=== PATIENT | female | born 1960 | race Caucasian/White ===

== ENCOUNTER 2021-04-30 09:09 | Inpatient (IN) | payer OTHER ==
[2021-04-30] MEDS ORDERED: ACETAMINOPHEN 500 MG TAB ONE (09:43)
[2021-04-30] MEDS ORDERED: NA CHLORIDE 0.9% 1,000 ML ONE ×3 (09:43→23:45)
[2021-04-30 09:55] LABS: Protime INR 1.23
--- NOTE | 2021-04-30 09:56 | RAD REPORT ---
EXAM DESCRIPTION: RAD - Chest Single View - 04/30/2021 9:35 am CLINICAL HISTORY: SOB COMPARISON: Portable March 2014, CT chest February 2021 TECHNIQUE: AP portable chest image was obtained 04/30/2021 9:35 am . FINDINGS: Baseline chronic interstitial lung pattern is present. Stranding is more prominent at each lung base, left greater than right, exaggerated due to under penetrated portable film technique, sha llow inspiration and overlying soft tissues. No definitive change from the prior examination. Lung pa renchymal calcifications are present and stable. Trach tube is in place. Trachea is midline. Patient rotation limits assessment of the neck soft tissu es. Heart and vasculature are normal. No measurable pleural effusion and no pneumothorax. No acute bony abnormality seen. No acute aortic findings suspected. IMPRESSION: No acute cardiopulmonary process. Bibasilar lung parenchymal opacification most likely atelectasis rather than infiltrate. Pattern is s imilar to 2013. Trach tube has been placed since the prior examination.
[2021-04-30 10:00] LABS: ALT/SGPT 54 U/L (12-78); AST/SGOT 71 U/L (15-37); Albumin 3.3 g/dL (3.4-5.0); Alkaline Phosphatase 167 U/L (45-117); BUN Blood Urea Nitrogen 16 mg/dL (7-18); Bicarbonate 34 mmol/L (21-32); Bilirubin Direct 0.2 mg/dL (0-0.2); Bilirubin Total 0.6 mg/dL (0.2-1.0); Glucose Level 211 mg/dL (74-106); NT PRO-BNP 809 pg/mL (<125); Protein, Total 7.9 g/dL (6.4-8.2); Sodium Level 135 mmol/L (136-145); Troponin (Emerg Dept Use Only) < 0.02 ng/mL (0.0-0.045)
[2021-04-30] MEDS ORDERED: NA CHLORIDE 0.9% 500 ML ONE (10:01)
[2021-04-30 10:13] LABS: Absolute Lymphocytes (CBC) 0.2 K/uL (0.7-4.9); Basophils % 0.3 % (0-1.3); Hematocrit 29.9 % (36.0-45.0); Lymphocytes % 2.3 % (15.3-44.8); MPV 7.4 fL (7.6-11.3)
[2021-04-30 10:30] LABS: CKMB Creatine Kinase MB 1.8 ng/mL (1.0-3.6)
[2021-04-30 10:53] LABS: Anisocytosis 1+; Blood Morphology Comment NOTED (NOT SEEN); Platelet Estimate ADEQ; Polychromasia SLIGHT; White Blood Cell Scan OK (OK)
[2021-04-30] MEDS ORDERED: CEFTRIAXONE 1000 MG/VIAL ONE (13:30)
[2021-04-30] MEDS ORDERED: NA CHLORIDE 0.9% 50 ML ONE (13:32)
[2021-04-30] MEDS ORDERED: HYDROCODONE/APAP 10/325 TAB ONE (13:39)
[2021-04-30 15:01] LABS: Urine Blood Negative (Negative); Urine Glucose Negative (Negative); Urine Protein 1+ (Negative); Urine Specific Gravity 1.025 (1.005-1.030); Urine pH 5.5 (5.0-7.0)
--- NOTE | 2021-04-30 15:21 | RAD REPORT ---
EXAM DESCRIPTION: CT - Chest Abdomen Pelvis W Cont - 04/30/2021 3:02 pm CLINICAL HISTORY: Chest and abdomen pain. back pain, fever COMPARISON: Follow Up Breast Axilla Comp dated 12/20/2020; 3D DIAG FERNANDA BILAT W/CAD dated 12/20/2020; C hest Single View dated 04/30/2021 TECHNIQUE: Approximately 100 mL nonionic IV contrast was administered to the patient. All CT scans are performed using dose optimization technique as appropriate and may include automated exposure control or mA/KV adjustment according to patient size. FINDINGS: Mild atelectasis and scarring is present in both lung bases. Calcified granuloma is noted the left upper lobe. Tracheostomy tube is in place with tip above the susanna.No pleural or pericardia l effusion.Mildly prominent 9 mm lymph node is seen prevascular space. The liver appears enlarged with a mildly nodular contour suggesting hepatomegaly and mild cirrhosis. Cholecystectomy. The spleen, pancreas, adrenal glands are within normal limits. Both kidneys show no hydronephrosis or evidence of stone or mass. No bowel obstruction, free air, free fluid or abscess. The appendix is not identified as a discrete s tructure, however, no secondary findings of appendicitis are identified. Small fat containing umbili michel hernia. No pathologic lymphadenopathy in the abdomen or pelvis. Mild lumbar degenerative changes are present. IMPRESSION: Hepatomegaly is noted with mild liver cirrhosis pattern. Small fat containing umbilical hernia. Lumbar spondylosis.
[2021-04-30] MEDS ORDERED: MORPHINE 4 MG/ML SYR ONE (17:15)
[2021-04-30] MEDS ORDERED: ONDANSETRON 4 MG/2 ML VIAL ONE (17:16)
--- NOTE | 2021-04-30 17:54 | RAD REPORT ---
EXAM DESCRIPTION: CT - Head Brain Wo Cont - 04/30/2021 5:45 pm CLINICAL HISTORY: headache, fever COMPARISON: Chest Abdomen Pelvis W Cont dated 04/30/2021 TECHNIQUE: All CT scans are performed using dose optimization technique as appropriate and may inclu de automated exposure control or mA/KV adjustment according to patient size. FINDINGS: No intracranial hemorrhage, hydrocephalus or extra-axial fluid collection.Mild brain atrop hy is noted.No areas of brain edema or evidence of midline shift. The paranasal sinuses and mastoids are clear. The calvarium is intact. IMPRESSION: No acute intracranial abnormality.
[2021-04-30] MEDS ORDERED: ACETAMINOPHEN 325 MG TABLET ONE (18:27)
[2021-04-30] MEDS ORDERED: IBUPROFEN 400 MG TAB ONE (18:28)
[2021-04-30 19:23] LABS: Urine Bacteria >50 /HPF (<20); Urine RBC <5 /HPF (NONE SEEN)
[2021-04-30 19:24] LABS: Urine Amorphous Sediment TRACE /HPF (NONE SEEN)
--- NOTE | 2021-04-30 19:28 | ER ---
Nurse's Notes [facility] Name: Janie Erickson Age: 60 yrs Sex: Female : 1960 Arrival Date: 04/30/2021 Time: 09:12 Bed 2 Private MD: Diagnosis: UTI/ Urinary tract infection, site not specified;Fever, unspecified;Sepsis, unspecified organism Presentation: 04/30 09:22 Chief complaint: Spouse and/or significant other states: "Last night she started tw5 feeling bad,so' I gave her a breathing treatment and antibiotics. She started feeling better, but then she got worse again. Coronavirus screen: Vaccine status: Patient reports being unvaccinated. Coronavirus screen: states that everyone in the house got COVID expect Janie. Ebola Screen: No symptoms or risks identified at this time. Initial Sepsis Screen: Does the patient meet any 2 criteria? Temp <36.0*C (96.8*F)) or > 38.3*C (100.9*F). HR > 90 bpm. Yes Does the patient have a suspected source of infection? No. Patient's initial sepsis screen is negative. Risk Assessment: Do you want to hurt yourself or someone else? Patient reports no desire to harm self or others. Onset of symptoms was April 29, 2021. 09:22 Method Of Arrival: EMS: [facility] tw5 09:22 Acuity: PAULINA 2 tw5 Triage Assessment: 09:26 General: Appears obese, unkempt, Behavior is calm, drowsy. Pain: Pain currently is 8 tw5 out of 10 on a pain scale. Respiratory: Reports shortness of breath labored breathing Ventilator assessment: ET Tube: Onset: The symptoms/episode began/occurred yesterday, the patient has moderate shortness of breath. Historical: - Allergies: : Sulfa (Sulfonamide Antibiotics); tw5 - PMHx: : Chronic obstructive lung disease; Congestive heart failure; Diabetes mellitus; tw5 - Immunization history:: Client reports having NOT received the Covid vaccine. Flu vaccine is not up to date. - Social history:: Smoking status: Patient reports the use of cigarette tobacco products, smokes one-half pack cigarettes per day. Screenin:19 Abuse screen: Denies threats or abuse. Denies injuries from another. Nutritional tw5 screening: No deficits noted. Tuberculosis screening: No symptoms or risk factors identified. Fall Risk None identified. Secondary diagnosis (15 points) Assessment: 11:00 General: Behavior is calm, cooperative, appropriate for age. tw5 11:00 Cardiovascular: Rhythm is regular. Respiratory: Reports shortness of breath since tw5 yesterday Airway via trache Trachea midline Respiratory effort is labored, Breath sounds are coarse. 11:00 Pain: Pain currently is 8 out of 10 on a pain scale. tw5 13:19 Pain: Pain currently is 6 out of 10 on a pain scale. tw5 13:19 Reassessment: Patient states feeling better. Patient states symptoms have improved. tw5 14:48 General: Appears in no apparent distress. Pain: Pain currently is 3 out of 10 on a pain tw5 scale. 16:27 General: Appears uncomfortable, Behavior is anxious. Pain: Complains of pain in face tw5 and back Pain currently is 10 out of 10 on a pain scale. 19:00 Reassessment: Patient appears in no apparent distress at this time. Patient and/or jb4 family updated on plan of care and expected duration. Pain level reassessed. Patient is alert, oriented x 3, equal unlabored respirations, skin warm/dry/pink. 20:00 Reassessment: Patient appears in no apparent distress at this time. Patient and/or jb4 family updated on plan of care and expected duration. Pain level reassessed. Patient is alert, oriented x 3, equal unlabored respirations, skin warm/dry/pink. 21:00 Reassessment: Patient appears in no apparent distress at this time. Patient and/or jb4 family updated on plan of care and expected duration. Pain level reassessed. Patient is alert, oriented x 3, equal unlabored respirations, skin warm/dry/pink. 22:30 Reassessment: Pt admitted to ER hold. Respirations remain even and unlabored. Lungs CTA jb4 EDWARD. Vent remains connected to pt's tracheostomy without any signs of complication. Pt resting in bed with ease, respirations are even and unlabored with no s/s of pain or distress noted. Vital Signs: 09:22 BP 116 / 62; Pulse 117; Temp 103(O); Pulse Ox 100% on ETT vent; tr6 09:22 BP 116 / 62; Pulse 118; Resp 17 S; Temp 103(O); Pulse Ox 100% on ETT vent; Weight 91.17 tw5 kg (R); Pain 8/10; 10:00 BP 117 / 67; Pulse 108; Resp 19; Pulse Ox 100% on ETT vent; tr6 10:53 Temp 99.6(O); tr6 11:15 BP 105 / 51; Pulse 98; Resp 19; Pulse Ox 98% on ETT vent; tr6 13:19 BP 105 / 56; Pulse 89; Resp 14; Pulse Ox 98% on 8% FiO2 ETT vent; Pain 6/10; tw5 15:24 BP 109 / 61; Pulse 96; Resp 16; Pulse Ox 100% ; tw5 16:27 BP 122 / 75; Pulse 105; Resp 14; Temp 99.9(O); Pulse Ox 100% ; Pain 10/10; tw5 17:00 BP 136 / 73; Pulse 110; Resp 14; Pulse Ox 100% on R/A; Pain 10/10; tw5 18:00 Temp 103.2(O); Pulse Ox 99% ; tr6 18:00 BP 139 / 80; Pulse 131; Resp 19; Pulse Ox 100% on ETT vent; tr6 18:15 BP 155 / 67; Pulse 126; Resp 19; Pulse Ox 100% on ETT vent; tr6 18:58 Temp 102.5(O); tr6 19:45 BP 118 / 48; Pulse 111; Resp 18; Pulse Ox 100% ; jb4 21:00 BP 100 / 60; Pulse 102; Resp 16; Temp 100.0(O); Pulse Ox 98% ; jb4 22:00 BP 96 / 60; Pulse 93; Resp 15; Pulse Ox 99% ; jb4 23:18 Temp 100.0(O); jb5 22:00 Pt remains on home ventilator. jb4 Vitals: 18:00 Cardiac Rhythm Assessment Sinus tach. tr6 ED Course: 09:12 Patient arrived in ED. tw5 09:16 Bridger Lange PA is PHCP. jm 09:16 Milton Claros MD is Attending Physician. jmm 09:19 Nicole Goyal is Primary Nurse. tw5 09:25 Initial lab(s) drawn, by me, sent to lab. First set of blood cultures drawn by me, em1 COVID swab sent to lab. 09:26 Triage completed. tw5 09:26 Arm band placed on. EKG completed in triage. Results shown to MD. tw5 09:30 No apparent distress. Resting quietly. Appears to be sleeping. tw5 09:30 Patient has correct armband on for positive identification. Bed in low position. Call tw5 light in reach. Side rails up X2. Adult w/ patient. 09:30 regulatory and compliance technician on. Pulse ox on. NIBP on. Door closed. Noise minimized. Lights dimmed. tw5 Moved to private room. Verbal reassurance given. 09:30 No provider procedures requiring assistance completed. tw5 09:34 Basic Metabolic Panel Sent. tr6 09:35 XRAY Chest (1 view) In Process Unspecified. EDMS 10:49 Second set of blood cultures drawn by me. em1 12:58 Amylase, Serum Sent. tw5 12:58 Basic Metabolic Panel Sent. tw5 13:13 Inserted saline lock: 20 gauge in left antecubital area, using aseptic technique. em1 14:53 Urine collected: straight cath specimen, clear. tw5 15:01 CT Chest, Abdomen, Pelvis - W/Contrast In Process Unspecified. EDMS 16:27 Notified Nurse Practitioner and/or Physician Law Firm Receptionist of The patient is requesting tw5 pain medication. 17:45 CT Head Brain wo Cont In Process Unspecified. EDMS 19:10 PHCP role handed off by Bridger Lange PA jr8 19:10 Perez Forrest PA is PHCP. jr8 19:12 Bridges cath inserted, using sterile technique, 18 Fr., by me, balloon inflated, to jb5 gravity drainage, returned cloudy urine. Patient tolerated well. 19:26 Reina Aopnte MD is Hospitalizing Provider. jr8 22:01 Patient transferred to hospital bed from ER bed without incident. . jb5 22:30 Patient admitted, IV remains in place. jb4 05/01 05:03 Patient requested to be pulled up in bed. Patient was pulled up in bed and head jb5 elevated. 06:17 PHCP role handed off by Perez Forrest PA jmm 06:17 Bridger Lange PA is PHCP. jmm 07:17 Primary Nurse role handed off by Nicole Goyal 07:17 Chang Lucio, RN is Primary Nurse. bp Administered Medications: 04/30 09:22 Drug: Tylenol 1000 mg Route: PO; tw5 13:29 Follow up: Response: No adverse reaction; Temperature is decreased tw5 09:42 Drug: NS 0.9% (30 ml/kg) 30 ml/kg {Note: 2500 hung 250 mg given by EMS.} Route: IV; tw5 Rate: bolus; Site: left hand; 13:29 Follow up: Response: No adverse reaction; IV Status: Completed infusion; IV Intake: tw5 2500ml 13:28 Drug: Seward (HYDROcodone-acetaminophen) 10 mg-325 mg 1 tabs Route: PO; tw5 15:08 Follow up: Response: No adverse reaction; Pain is decreased; RASS: Alert and Calm (0) tw5 13:28 Drug: Rocephin (cefTRIAXone) 2 grams Route: IV; Rate: calculated rate; Site: left tw5 forearm; 15:09 Follow up: IV Status: Completed infusion tw5 16:55 Drug: morphine 4 mg Route: IVP; Site: left forearm; tw5 17:56 Follow up: Response: No adverse reaction; Pain is unchanged, physician notified tr6 16:57 Drug: Zofran (Ondansetron) 4 mg Route: IVP; Site: left forearm; tw5 17:56 Follow up: Response: No adverse reaction; Pain is unchanged, physician notified tr6 18:15 Drug: Ibuprofen 400 mg Route: PO; tr6 21:46 Follow up: Response: No adverse reaction; Temperature is decreased jb4 18:16 Drug: Tylenol 650 mg Route: PO; tr6 21:46 Follow up: Response: No adverse reaction; Temperature is decreased jb4 Intake: 13:29 IV: 2500ml; Total: 2500ml. tw5 Outcome: 19:27 Decision to Hospitalize by Provider. jr8 22:30 Admitted to ER Hold. Please see [facility] for further documentation. jb4 22:30 Condition: stable 22:30 Discharge instructions given to patient, Instructed on the need for admit, Demonstrated understanding of instructions. 05/01 13:25 Patient left the ED. em1 Signatures: Dispatcher [employer] EDMS Bridger Lange PA PA jmm Martinez, Eric em1 Perez Forrest PA PA jrOtoniel Avendano, RN RN jb4 Jenny Batres jb5 Chang Lucio RN RN bp Nicole Kowalski RN RN tr6 Nicole Goyal 5 Corrections: (The following items were deleted from the chart) 04/30 18:29 18:16 BP 139 / 80; Pulse 131bpm; Resp 19bpm; Pulse Ox 100% ET / Ventilator; tr6 tr6 21:29 21:00 BP 100 / 60; Pulse 102bpm; Resp 16bpm; Pulse Ox 98%; jb4 jb4 05/01 01:40 04/30 21:00 Reassessment: Patient appears in no apparent distress at this time. Patient jb4 and/or family updated on plan of care and expected duration. Pain level reassessed. Patient is alert, oriented x 3, equal unlabored respirations, skin warm/dry/pink. jb4
--- NOTE | 2021-04-30 19:28 | EDPHYS ---
Physician Documentation [facility] Name: Janie Erickson Age: 60 yrs Sex: Female : 1960 Arrival Date: 04/30/2021 Time: 09:12 Bed 2 Private MD: ED Physician Milton Claros HPI: 04/30 09:15 This 60 yrs old Female presents to ER via EMS with complaints of fever. jmm 09:15 The patient reports fever, not measured (subjective). Onset: The symptoms/episode jmm began/occurred last night. Modifying factors: there are no obvious modifying factors. Associated signs and symptoms: Pertinent positives: backache, chills, Pertinent negatives: sore throat. 60-year-old female with a history of COPD, CHF diabetes mellitus the presents emerge department with complaints of fever and chills beginning last night. states that he administered some nebulizer therapies. Patient denies any sore throat, pain at the tracheostomy site. Patient does state that she has back pain across her entire spine. Denies chest pain or belly pain. Historical: - Allergies: 09:26 Sulfa (Sulfonamide Antibiotics); tw5 - PMHx: 09:26 Chronic obstructive lung disease; Congestive heart failure; Diabetes mellitus; tw5 - Immunization history:: Client reports having NOT received the Covid vaccine. Flu vaccine is not up to date. - Social history:: Smoking status: Patient reports the use of cigarette tobacco products, smokes one-half pack cigarettes per day. ROS: 09:15 Constitutional: Positive for fever. jmm 09:15 Back: Positive for pain with movement. 09:15 All other systems are negative. Exam: 09:15 Constitutional: This is a well developed, well nourished patient who is awake, alert, jmm and in no acute distress. Head/Face: atraumatic. Eyes: EOMI, no conjunctival erythema appreciated ENT: Moist Mucus Membranes Neck: No tracheostomy drainage appreciated, no surrounding erythema Chest/axilla: Normal chest wall appearance and motion. Cardiovascular: Regular rate and rhythm. No edema appreciated Respiratory: Normal respirations, no respiratory distress appreciated Abdomen/GI: Non distended, soft Back: Normal ROM Skin: General appearance color normal MS/ Extremity: Moves all extremities, no obvious deformities appreciated, no edema noted to the lower extremities 09:15 Neuro: Orientation: is normal, Mentation: is normal, Memory: is normal. 09:15 Psych: Behavior/mood is pleasant, cooperative. Vital Signs: 09:22 BP 116 / 62; Pulse 117; Temp 103(O); Pulse Ox 100% on ETT vent; tr6 09:22 BP 116 / 62; Pulse 118; Resp 17 S; Temp 103(O); Pulse Ox 100% on ETT vent; Weight 91.17 tw5 kg (R); Pain 8/10; 10:00 BP 117 / 67; Pulse 108; Resp 19; Pulse Ox 100% on ETT vent; tr6 10:53 Temp 99.6(O); tr6 11:15 BP 105 / 51; Pulse 98; Resp 19; Pulse Ox 98% on ETT vent; tr6 13:19 BP 105 / 56; Pulse 89; Resp 14; Pulse Ox 98% on 8% FiO2 ETT vent; Pain 6/10; tw5 15:24 BP 109 / 61; Pulse 96; Resp 16; Pulse Ox 100% ; tw5 16:27 BP 122 / 75; Pulse 105; Resp 14; Temp 99.9(O); Pulse Ox 100% ; Pain 10/10; tw5 17:00 BP 136 / 73; Pulse 110; Resp 14; Pulse Ox 100% on R/A; Pain 10/10; tw5 18:00 Temp 103.2(O); Pulse Ox 99% ; tr6 18:00 BP 139 / 80; Pulse 131; Resp 19; Pulse Ox 100% on ETT vent; tr6 18:15 BP 155 / 67; Pulse 126; Resp 19; Pulse Ox 100% on ETT vent; tr6 18:58 Temp 102.5(O); tr6 19:45 BP 118 / 48; Pulse 111; Resp 18; Pulse Ox 100% ; jb4 21:00 BP 100 / 60; Pulse 102; Resp 16; Temp 100.0(O); Pulse Ox 98% ; jb4 22:00 BP 96 / 60; Pulse 93; Resp 15; Pulse Ox 99% ; jb4 23:18 Temp 100.0(O); jb5 22:00 Pt remains on home ventilator. jb4 MDM: 09:16 Patient medically screened. tonya 17:52 Data reviewed: vital signs, nurses notes. Transition of care: After a detail discussion tonya of the patient's case, care is transferred to [facility]. ED course: CT chest abdomen pelvis is negative for any acute finding. Patient stated that she did have headache, although worsening of her life. Morphine was administered. I discussed concerns for meningitis along with the need for further evaluation with spinal tap. They accepted.. 19:25 Data reviewed: lab test result(s), radiologic studies, CT scan, plain films. Data jr8 interpreted: Pulse oximetry: on room air is 100 %. Interpretation: normal. Counseling: I had a detailed discussion with the patient and/or guardian regarding: the historical points, exam findings, and any diagnostic results supporting the discharge/admit diagnosis, lab results, radiology results, the need for further work-up and treatment in the hospital. 04/30 09:16 Order name: Amylase, Serum tw5 04/30 09:16 Order name: Basic Metabolic Panel tw5 04/30 09:16 Order name: Blood Culture Adult (2) tw5 04/30 09:16 Order name: CPK; Complete Time: 10:34 tw5 04/30 09:16 Order name: Ckmb; Complete Time: 10:34 tw5 04/30 09:16 Order name: Lactate; Complete Time: 09:59 tw5 04/30 09:16 Order name: Lipase; Complete Time: 10:34 tw5 04/30 09:16 Order name: Procalcitonin; Complete Time: 10:34 tw5 04/30 09:16 Order name: Protime (+inr); Complete Time: 10:22 tw5 04/30 09:16 Order name: Ptt, Activated; Complete Time: 10:22 tw5 04/30 09:16 Order name: Urine Microscopic Only; Complete Time: 19:24 tw5 04/30 09:17 Order name: Amylase; Complete Time: 10:34 EDMS 04/30 09:18 Order name: Basic Metabolic Panel [facility] 04/30 09:18 Order name: CBC with Diff; Complete Time: 10:53 [facility] 04/30 09:18 Order name: LFT's; Complete Time: 10:22 [facility] 04/30 09:18 Order name: Magnesium; Complete Time: 10:22 [facility] 04/30 09:18 Order name: NT PRO-BNP; Complete Time: 10:22 [facility] 04/30 09:18 Order name: Troponin (emerg Dept Use Only); Complete Time: 10:22 m 04/30 09:19 Order name: Basic Metabolic Panel; Complete Time: 10:22 EDMS 04/30 09:27 Order name: Glucose, Ancillary Testing; Complete Time: 09:36 EDMS 04/30 09:47 Order name: SARS-COV-2 RT PCR; Complete Time: 10:45 EDMS 04/30 10:17 Order name: CBC Smear Scan; Complete Time: 10:53 EDMS 04/30 14:49 Order name: Urine Culture tw5 04/30 15:00 Order name: Urine Dipstick-Ancillary; Complete Time: 15:07 EDMS 04/30 09:18 Order name: XRAY Chest (1 view); Complete Time: 09:59 m 04/30 14:44 Order name: CT Chest, Abdomen, Pelvis - W/Contrast; Complete Time: 15:27 [facility] 04/30 15:42 Order name: Procalcitonin; Complete Time: 18:25 m 04/30 16:47 Order name: CT Head Brain wo Cont; Complete Time: 18:25 m 04/30 17:48 Order name: Csf Culture [facility] 04/30 17:48 Order name: Fluid Cell Count,Body [facility] 04/30 17:48 Order name: Spinal Fluid Profile [facility] 04/30 23:28 Order name: Glucose, Ancillary Testing; Complete Time: 23:42 EDMS 05/01 00:18 Order name: Lactate; Complete Time: 00:19 EDMS 05/01 06:10 Order name: CBC with Automated Diff; Complete Time: 08:18 EDMS 05/01 06:31 Order name: Comprehensive Metabolic Panel; Complete Time: 07:08 EDMS 05/01 06:31 Order name: Phosphorus; Complete Time: 07:08 EDMS 05/01 06:31 Order name: Lipid Profile; Complete Time: 07:08 EDMS 05/01 06:31 Order name: T4 Free; Complete Time: 07:08 EDMS 05/01 06:31 Order name: Magnesium; Complete Time: 07:08 EDMS 05/01 06:31 Order name: Thyroid Stimulating Hormone; Complete Time: 07:08 EDMS 05/01 06:31 Order name: Transferrin Sat/Iron Binding; Complete Time: 07:08 EDMS 05/01 06:31 Order name: Ferritin; Complete Time: 07:08 EDMS 05/01 06:31 Order name: Folic Acid, (Folate); Complete Time: 07:08 EDMS 05/01 06:31 Order name: Vitamin B12 Level; Complete Time: 07:08 EDMS 05/01 07:36 Order name: Glucose, Ancillary Testing; Complete Time: 08:17 EDMS 05/01 08:17 Order name: CBC Smear Scan; Complete Time: 08:18 EDMS 04/30 09:16 Order name: Accucheck; Complete Time: 09:42 tw5 04/30 09:16 Order name: Cardiac monitoring; Complete Time: 09:42 tw5 04/30 09:16 Order name: EKG - Nurse/Tech; Complete Time: 09:42 tw5 04/30 09:16 Order name: IV Saline Lock - Large Bore; Complete Time: 09:42 tw5 04/30 09:16 Order name: Labs collected and sent; Complete Time: 09:42 tw5 04/30 09:16 Order name: O2 Per Protocol; Complete Time: 09:42 tw5 04/30 09:16 Order name: O2 Sat Monitoring; Complete Time: 09:42 tw5 04/30 09:16 Order name: Urine Dipstick-Ancillary (obtain specimen); Complete Time: 15:09 tw5 04/30 09:18 Order name: EKG; Complete Time: 09:19 jmm 04/30 09:18 Order name: Cardiac monitoring; Complete Time: 09:30 jmm 04/30 09:18 Order name: EKG - Nurse/Tech; Complete Time: 09:30 jmm 04/30 09:18 Order name: IV Saline Lock; Complete Time: 09:30 jmm 04/30 09:18 Order name: Labs collected and sent; Complete Time: 09:30 jmm 04/30 09:18 Order name: O2 Per Protocol; Complete Time: 09:30 jmm 04/30 09:18 Order name: O2 Sat Monitoring; Complete Time: 09:30 jmm 04/30 19:12 Order name: Bridges-Two way; Complete Time: 19:12 jb5 Administered Medications: 09:22 Drug: Tylenol 1000 mg Route: PO; tw5 13:29 Follow up: Response: No adverse reaction; Temperature is decreased tw5 09:42 Drug: NS 0.9% (30 ml/kg) 30 ml/kg {Note: 2500 hung 250 mg given by EMS.} Route: IV; tw5 Rate: bolus; Site: left hand; 13:29 Follow up: Response: No adverse reaction; IV Status: Completed infusion; IV Intake: tw5 2500ml 13:28 Drug: [place] (HYDROcodone-acetaminophen) 10 mg-325 mg 1 tabs Route: PO; tw5 15:08 Follow up: Response: No adverse reaction; Pain is decreased; RASS: Alert and Calm (0) tw5 13:28 Drug: Rocephin (cefTRIAXone) 2 grams Route: IV; Rate: calculated rate; Site: left tw5 forearm; 15:09 Follow up: IV Status: Completed infusion tw5 16:55 Drug: morphine 4 mg Route: IVP; Site: left forearm; tw5 17:56 Follow up: Response: No adverse reaction; Pain is unchanged, physician notified tr6 16:57 Drug: Zofran (Ondansetron) 4 mg Route: IVP; Site: left forearm; tw5 17:56 Follow up: Response: No adverse reaction; Pain is unchanged, physician notified tr6 18:15 Drug: Ibuprofen 400 mg Route: PO; tr6 21:46 Follow up: Response: No adverse reaction; Temperature is decreased jb4 18:16 Drug: Tylenol 650 mg Route: PO; tr6 21:46 Follow up: Response: No adverse reaction; Temperature is decreased jb4 Disposition Summary: 04/30/21 19:27 Hospitalization Ordered Hospitalization Status: Inpatient Admission jr8 Provider: Reina Aponte Condition: Fair jr8 Problem: new jr8 Symptoms: have improved jr8 Bed/Room Type: Standard jr8 Location: [facility] ER HOLD(05/01/21 03:14) bb Room Assignment: ERHOLD-(05/01/21 03:14) bb Diagnosis - UTI/ Urinary tract infection, site not specified jr8 - Fever, unspecified jr8 - Sepsis, unspecified organism jr8 Forms: - Medication Reconciliation Form jr8 - SBAR form jr8 Addendum: 05/05/2021 06:55 Co-signature as Attending Physician, Milton Claros MD I agree with the assessment and c hoffman plan of care. Signatures: Dispatcher [employer] EDMilton Klein MD MD cha Mickail, Joel, PA PA jmm Ballard, Brenda, RN RN bb Perez Forrest PA PA jr8 Jenny Batres jb5 Nicole Kowalski, OLIVE RN tr6 Nicole Goyal tw5 Otoniel Quintana RN jb4 Corrections: (The following items were deleted from the chart) 04/30 09:26 09:18 Chest Single View+RAD.RAD.BRZ ordered. EDMS EDMS 09:39 09:19 PROTIME (+INR)+COAG.LAB.BRZ ordered. EDMS EDMS 09:42 09:17 Basic Metabolic Panel ordered. EDMS EDMS 09:42 09:17 CBC+H.LAB.BRZ ordered. EDMS EDMS 09:42 09:17 HEPATIC FUNCTION+C.LAB.BRZ ordered. EDMS EDMS 09:42 09:17 TROPONIN (EMERG DEPT USE ONLY)+C.LAB.BRZ ordered. EDMS EDMS 09:47 09:19 CORONAVIRUS+MR.LAB.BRZ ordered. EDMS EDMS 16:52 15:43 LACTATE+C.LAB.BRZ ordered. EDMS EDMS 05/01 03:14 04/30 19:27 Telemetry/MedSurg (Inpatient) jr8 jamie 05/01 03:14 04/30 19:27 jrVania ayala
--- NOTE | 2021-04-30 21:36 | P.HP ---
Certification for Inpatient Patient admitted to: Inpatient With expected LOS: >2 Midnights Patient will require the following post-hospital care: None Practitioner: I am a practitioner with admitting privileges, knowledge of patient current condition, hospital course, and medical plan of care. Services: Services provided to patient in accordance with Admission requirements found in Title 42 Section 412.3 of the Code of Federal Regulations Patient History Date of Service: 04/30/21 Reason for admission: UTI, fever History of Present Illness: Ms. Erickson is a 60 yo F with a trach, COPD, CHF, DM who presents with one day of malaise, SOB, and fever, found to have a UTI. Yesterday, when her symptoms started her gave her breathing treatments and antibiotics but this morning she woke up with a fever. She denies pain at her trach site. H/H 10.1, Glu 211, AST 71k, alk phos 167, procal 24.88. Allergies Sulfa (Sulfonamide Antibiotics) Allergy (Verified 04/21/14 07:51) Itching/Hives/Rash Home Medications: predniSONE [Prednisone*] 40 mg PO [id number] #20 tab 04/21/14 - Past Medical/Surgical History Diabetic: Yes -: COPD -: CHF -: DM -: trach - Family History Family History: Reviewed- Non-Contributory - Social History Smoking Status: Unknown if ever smoked Alcohol use: No CD- Drugs: No Caffeine use: No Place of Residence: Home Review of Systems General: Fever, Chills, Sweats, Malaise Respiratory: Shortness of Breath Physical Examination - Physical Exam General: Alert, In no apparent distress HEENT: Atraumatic, PERRLA, Mucous membr. moist/pink, EOMI, Sclerae nonicteric Neck: Supple, 2+ carotid pulse no bruit, No LAD, Other (using ETT via trach at bedside ), Without JVD or thyroid abnormality Respiratory: Clear to auscultation bilaterally, Normal air movement Cardiovascular: Regular rate/rhythm, Normal S1 S2 Gastrointestinal: Normal bowel sounds, No tenderness Musculoskeletal: No tenderness Integumentary: No rashes Neurological: Normal strength at 5/5 x4 extr, Normal tone, Normal affect Lymphatics: No axilla or inguinal lymphadenopathy - Studies Laboratory Data (last 24 hrs) 04/30/21 09:25: PT Cancelled, INR Cancelled 04/30/21 09:25: WBC 9.00, Hgb 10.1 L, Hct 29.9 L, Plt Count 183 04/30/21 09:25: Sodium 135 L, Potassium 4.0, BUN 16, Creatinine 1.07, Glucose 211 H, Magnesium 2.0, Total Bilirubin 0.6, AST 71 H, ALT 54, Alkaline Phosphatase 167 H 04/30/21 09:25: PT 14.2 H, INR 1.23, APTT 34.8 04/30/21 09:25: Sodium Cancelled, Potassium Cancelled, BUN Cancelled, Creatinine Cancelled, Glucose Cancelled, Total Bilirubin Cancelled, AST Cancelled, ALT Cancelled, Alkaline Phosphatase Cancelled, Amylase 11 L, Lipase 21 L 04/30/21 09:16: WBC Cancelled, Hgb Cancelled, Hct Cancelled, Plt Count Cancelled Assessment and Plan - Problems (Diagnosis) (1) CHF (congestive heart failure) Current Visit: Yes Status: Chronic Qualifiers: Heart failure type: unspecified Heart failure chronicity: unspecified Qualified Code(s): I50.9 - Heart failure, unspecified (2) COPD (chronic obstructive pulmonary disease) Current Visit: Yes Status: Chronic Qualifiers: COPD type: unspecified COPD Qualified Code(s): J44.9 - Chronic obstructive pulmonary disease, unspecified (3) T2DM (type 2 diabetes mellitus) Current Visit: Yes Status: Chronic Qualifiers: Diabetes mellitus tank terminal gauger insulin use: unspecified tank terminal gauger insulin use status Diabetes mellitus complication status: without complication Qualified Code(s): E11.9 - Type 2 diabetes mellitus without complications (4) UTI (urinary tract infection) Current Visit: Yes Status: Acute Qualifiers: Urinary tract infection type: site unspecified Hematuria presence: without hematuria Qualified Code(s): N39.0 - Urinary tract infection, site not specified - Plan continue IV antibiotics alternate ibuprofen and tylenol for fever control pain management as needed breathing treatments as needed anemia workup pending sliding scale insulin and accuchecks RT consulted DVT ppx Discharge Plan: Home Plan to discharge in: 72 Hours - Advance Directives Does patient have a Living Will: No Does patient have a Durable POA for Healthcare: No - Code Status/Comfort Care Code Status Assessed: Yes (full code ) Critical Care: No Time Spent Managing Pts Care (In Minutes): 70
[2021-04-30] MEDS ORDERED: ALBUTEROL 2.5 MG/3 ML NEB SOL NEB PRN (22:39)
[2021-04-30] MEDS: INSULIN -REGULAR HUMAN 50 UNIT/0.5 ML ML SQ SCH (22:39)
[2021-04-30] MEDS ORDERED: MORPHINE 2 MG/ML SYR IV PRN (22:39)
[2021-04-30] MEDS ORDERED: IBUPROFEN 400 MG TAB PO PRN (22:39)
[2021-04-30] MEDS ORDERED: ACETAMINOPHEN 500 MG TAB PO PRN (22:39)
[2021-04-30] MEDS ORDERED: NA CHLORIDE 0.9% 1,000 ML IV SCH (22:39)
[2021-04-30] MEDS ORDERED: ONDANSETRON 4 MG/2 ML VIAL IV PRN (22:39)
[2021-04-30] MEDS ORDERED: IPRATROPIUM BROM 0.5MG/2.5ML NEB PRN (22:39)
[2021-04-30 22:47] VITALS: BMI 32.4
[2021-04-30] MEDS ORDERED: FAMOTIDINE 20 MG/2 ML VIAL IV ONE (23:42)
[2021-05-01] MEDS ORDERED: INSULIN -REGULAR HUMAN 50 UNIT/0.5 ML ML ONE (00:24)
[2021-05-01] MEDS ORDERED: FENTANYL CITR 100 MCG/2 ML IV ONE (02:23)
[2021-05-01] MEDS ORDERED: FENTANYL CITR 100 MCG/2 ML ONE (03:00)
[2021-05-01] MEDS ORDERED: CYCLOBENZAPRINE 10 MG TAB PO ONE (03:56)
[2021-05-01] MEDS ORDERED: ONDANSETRON 4 MG/2 ML VIAL ONE ×2 (04:25→08:15)
[2021-05-01] MEDS ORDERED: CYCLOBENZAPRINE 10 MG TAB ONE (04:25)
[2021-05-01] MEDS ORDERED: ALBUTEROL 2.5 MG/3 ML NEB SOL ONE (04:51)
[2021-05-01] MEDS ORDERED: IPRATROPIUM BROM 0.5MG/2.5ML ONE (04:52)
[2021-05-01 05:00] VITALS: O2SAT 100
[2021-05-01 06:03] LABS: Absolute Lymphocytes (CBC) 0.2 K/uL (0.7-4.9); Basophils % 0.2 % (0-1.3)
[2021-05-01 06:30] LABS: ALT/SGPT 78 U/L (12-78); AST/SGOT 99 U/L (15-37); Albumin 2.9 g/dL (3.4-5.0); Alkaline Phosphatase 171 U/L (45-117); BUN Blood Urea Nitrogen 17 mg/dL (7-18); Bicarbonate 36 mmol/L (21-32); Bilirubin Total 0.4 mg/dL (0.2-1.0); Ferritin 595.3 ng/mL (8-388); Folic Acid, (Folate) > 20.0 ng/mL (3.1-17.5); Glucose Level 142 mg/dL (74-106); HDL Cholesterol 27 mg/dL (40-60); LDL Cholesterol, Calculated 9 (<130); Magnesium 2.2 mg/dL (1.8-2.4); Phosphorus 2.7 mg/dL (2.5-4.9); Potassium 3.8 mmol/L (3.5-5.1); Protein, Total 7.2 g/dL (6.4-8.2); Sodium Level 138 mmol/L (136-145); Transferrin 156 mg/dL (200-360)
[2021-05-01] MEDS: INSULIN -REGULAR HUMAN 50 UNIT/0.5 ML ML SQ SCH ×2 (07:30→11:30)
[2021-05-01] MEDS ORDERED: MORPHINE 2 MG/ML SYR ONE (08:15)
[2021-05-01 08:17] LABS: Blood Morphology Comment NOT SEEN (NOT SEEN); Platelet Estimate DECR; White Blood Cell Scan OK (OK)
[2021-05-01] MEDS ORDERED: ENOXAPARIN 40 MG/0.4 ML SQ SCH (09:00)
[2021-05-01] MEDS ORDERED: INFLUENZA VACCINE (for 6+ mo) 0.5 ML DOSE IMVAC ONE ×2 (09:00→10:54)
[2021-05-01 10:47] VITALS: TEMP 98.5
[2021-05-01] MEDS ORDERED: ENOXAPARIN 40 MG/0.4 ML SQ ONE (10:53)
[2021-05-01] MEDS ORDERED: HYDROCODONE/APAP 10/325 TAB PO PRN (11:28)
[2021-05-01 11:31] VITALS: BP 119/69
--- NOTE | 2021-05-01 12:30 | P.DS ---
Admission Date: 04/30/21 Discharge Date: 05/01/21 Disposition: ROUTINE DISCHARGE Discharge Condition: FAIR Reason for Admission: UTI, fever - Problems (1) Chronic respiratory failure with hypoxia Status: Chronic (2) Tracheostomy status Status: Chronic (3) UTI (urinary tract infection) Status: Acute Qualifiers: Urinary tract infection type: site unspecified Hematuria presence: without hematuria Qualified Code(s): N39.0 - Urinary tract infection, site not specified (4) T2DM (type 2 diabetes mellitus) Status: Chronic Qualifiers: Diabetes mellitus assisted insulin use: unspecified assisted insulin use status Diabetes mellitus complication status: without complication Qualified Code(s): E11.9 - Type 2 diabetes mellitus without complications (5) Sepsis Status: Acute Brief History of Present Illness: 60 yo F with a trach, COPD, CHF, DM who presents with one day of malaise, SOB, and fever, found to have a UTI. Per report her gave her breathing treatment and antibiotics before she came to the emergency department. H/H 10.1, Glu 211, AST 71k, alk phos 167, procal 24.88. Chest x-ray showed no acute cardiopulmonary process. Patient was hospitalized for further management. Hospital Course: Patient admitted to the medical floor and started on IV antibiotics. Her urine culture yielded no growth. Blood culture yielded no growth. Patient was afebrile during the hospital stay. She was at baseline. She is on assist- control ventilation at baseline. request for discharge today. Patient is clinically stable. She is discharged with cefpodoxime to continue treatment for the UTI. Vital Signs/Physical Exam: Temp Pulse Resp BP Pulse Ox 98.5 F 87 15 119/69 95 05/01/21 10:00 05/01/21 11:00 05/01/21 11:00 05/01/21 11:00 05/01/21 11:00 General: Alert, In no apparent distress Neck: Other (Tracheastomy-vent) Respiratory: Clear to auscultation bilaterally, Normal air movement Cardiovascular: No edema, Regular rate/rhythm, Normal S1 S2 Gastrointestinal: Normal bowel sounds, Soft and benign, Non-distended Musculoskeletal: No swelling Integumentary: No rashes Laboratory Data at Discharge: WBC 5.70 K/uL (4.3-10.9) D 05/01/21 05:36 Hgb 9.4 g/dL (12.0-15.0) L 05/01/21 05:36 Hct 28.0 % (36.0-45.0) L 05/01/21 05:36 Plt Count 146 K/uL (152-406) L D 05/01/21 05:36 PT 14.2 SECONDS (9.5-12.5) H 04/30/21 09:25 PT Cancelled 04/30/21 09:25 INR 1.23 04/30/21 09:25 INR Cancelled 04/30/21 09:25 APTT 34.8 SECONDS (24.3-36.9) 04/30/21 09:25 Sodium 138 mmol/L (136-145) 05/01/21 05:36 Potassium 3.8 mmol/L (3.5-5.1) 05/01/21 05:36 BUN 17 mg/dL (7-18) 05/01/21 05:36 Creatinine 0.88 mg/dL (0.55-1.3) 05/01/21 05:36 Glucose 142 mg/dL (74-106) H 05/01/21 05:36 Phosphorus 2.7 mg/dL (2.5-4.9) 05/01/21 05:36 Magnesium 2.2 mg/dL (1.8-2.4) 05/01/21 05:36 Total Bilirubin 0.4 mg/dL (0.2-1.0) 05/01/21 05:36 AST 99 U/L (15-37) H 05/01/21 05:36 ALT 78 U/L (12-78) 05/01/21 05:36 Alkaline Phosphatase 171 U/L (45-117) H 05/01/21 05:36 Triglycerides 192 mg/dL (<150) H 05/01/21 05:36 Cholesterol 74 mg/dL (<200) 05/01/21 05:36 HDL Cholesterol 27 mg/dL (40-60) L 05/01/21 05:36 Cholesterol/HDL Ratio 2.74 05/01/21 05:36 Amylase 11 U/L (25-115) L 04/30/21 09:25 Lipase 21 U/L (73-393) L 04/30/21 09:25 Home Medications: predniSONE [Prednisone*] 40 mg PO [id number] #20 tab 04/21/14 Cefpodoxime Proxetil 100 mg PO BID #14 tablet 05/01/21 Cyclobenzaprine [Flexeril*] 10 mg PO TID 05/01/21 Dulaglutide [Trulicity] 5 ml 05/01/21 Famotidine 40 mg PO DAILY 05/01/21 Furosemide [Lasix*] 20 mg PO DAILY 05/01/21 Hydrocodone Bit/Acetaminophen [Hydrocodon-Acetaminophn 10325] 1 tab PO Q6H PRN 05/01/21 Insulin Detemir [Levemir] 60 units SQ DAILY 05/01/21 Ipratropium/Albuterol Sulfate [Iprat-Albut 0.5-3(2.5) mg/3 ml] 3 ml NEB QID 05/01/21 Iron/FA/Vit B-Com W/C [Hemocyte Plus*] 1 tab PO BEDTIME 05/01/21 Levothyroxine [Synthroid*] 0.05 mg PO DAILY 05/01/21 Magnesium [Magnesium Gluconate] 500 mg PO BEDTIME 05/01/21 Metformin HCl 500 mg PO BID 05/01/21 PARoxetine HCL [Paroxetine HCl] 40 mg PO DAILY 05/01/21 Potassium Gluconate [Potassium] 595 mg PO 05/01/21 Pregabalin 300 mg PO BID 05/01/21 Quetiapine [Seroquel*] 50 mg PO BEDTIME 05/01/21 Spironolactone 25 mg PO DAILY 05/01/21 ondansetron HCL [Ondansetron HCl] 8 mg PO Q8H PRN 05/01/21 New Medications: Cefpodoxime Proxetil 100 mg PO BID #14 tablet Diet: ADA Activity: Fall precautions Followup: Lynette Luna MD [Primary Care Provider] - 1 Week
[2021-05-01] MEDS ORDERED: CEFTRIAXONE 1 GM/NS 50 ML 1 GM/50 ML BAG IV SCH (13:00)
[2021-05-01] MEDS ORDERED: HYDROCODONE/APAP 10/325 TAB ONE (13:11)
[2021-05-01] MEDS ORDERED: CYCLOBENZAPRINE 10 MG TAB PO SCH (14:00)
== END 2021-05-01 13:12 | disposition home or self-care (01) | DRG 872 ==
LOC: ER 09:09 → ERHOLD 20:56
PROVIDERS: ADMIT Internal Medicine; ATTEND Internal Medicine
DX: A41.9 Sepsis, unspecified organism (principal); N39.0 Urinary tract infection, site not specified; J96.11 Chronic respiratory failure with hypoxia; E11.9 Type 2 diabetes mellitus without complications; Z93.0 Tracheostomy status; J44.9 Chronic obstructive pulmonary disease, unspecified; I50.9 Heart failure, unspecified; Z20.822 Contact with and (suspected) exposure to COVID-19; Z23 Encounter for immunization; Z88.2 Allergy status to sulfonamides
CPT/HCPCS: 36415; 51702; 70450; 71045; 71260; 74177; 80048; 80053; 80061; 80076; 81003; 81015; 82150; 82550; 82553; 82607; 82728; 82746; 82947; 83540; 83605; 83690; 83735; 83880; 84100; 84145; 84439; 84443; 84466; 84484; 85025; 85610; 85730; 87040; 87086; 87088; 90471; 93005; 94640; 99285; J0696; J1650; J2270; J2405; J3010; J7030; J7040; Q2035; Q9967; U0003

== ENCOUNTER 2021-05-01 22:17 | Inpatient (IN) | payer OTHER ==
[2021-05-02 00:01] LABS: Absolute Lymphocytes (CBC) 0.3 K/uL (0.7-4.9); Basophils % 0.2 % (0-1.3); Hematocrit 28.3 % (36.0-45.0); MPV 7.5 fL (7.6-11.3); RBC Red Blood Cell Count 3.22 M/uL (3.86-4.86)
[2021-05-02 00:02] LABS: Protime INR 1.09
[2021-05-02 00:21] LABS: ALT/SGPT 84 U/L (12-78); AST/SGOT 91 U/L (15-37); Albumin 3.2 g/dL (3.4-5.0); Alkaline Phosphatase 216 U/L (45-117); BUN Blood Urea Nitrogen 16 mg/dL (7-18); Bicarbonate 35 mmol/L (21-32); Bilirubin Direct 0.1 mg/dL (0-0.2); Bilirubin Total 0.4 mg/dL (0.2-1.0); Glucose Level 192 mg/dL (74-106); Magnesium 2.4 mg/dL (1.8-2.4); NT PRO-BNP 455 pg/mL (<125); Potassium 4.1 mmol/L (3.5-5.1); Protein, Total 7.7 g/dL (6.4-8.2); Sodium Level 140 mmol/L (136-145); Troponin (Emerg Dept Use Only) < 0.02 ng/mL (0.0-0.045)
[2021-05-02] MEDS ORDERED: ONDANSETRON 4 MG/2 ML VIAL ONE ×2 (00:22→19:15)
[2021-05-02] MEDS ORDERED: METOCLOPRAMIDE 10 MG/2mL INJ ONE (00:59)
[2021-05-02 01:38] LABS: Arterial Blood Carboxyhemoglob 1.3 % (0-1.5); Blood Gas Oxyhemoglobin 97.2 % (94-97); Blood O2 Saturation 99.4 % (92-98.5)
--- NOTE | 2021-05-02 02:22 | EDPHYS ---
Physician Documentation [facility] Name: Janie Erickson Age: 60 yrs Sex: Female : 1960 Arrival Date: 05/01/2021 Time: 22:50 Bed 26 Private MD: ED Physician Yemi Overton HPI: 05/01 23:36 This 60 yrs old Female presents to ER via EMS with unknown complaint. pkl 23:36 The patient has shortness of breath at rest. Onset: The symptoms/episode began/occurred pkl just prior to arrival. Associated signs and symptoms: Pertinent positives: nausea, headache and back pain. Patient was admitted yesterday and discharged earlier today for similar complaints. Historical: - Allergies: 22:55 Sulfa (Sulfonamide Antibiotics); dc2 - PMHx: 22:55 Chronic obstructive lung disease; diabetes mellitus; Congestive heart failure; dc2 - Immunization history:: Adult Immunizations up to date, Client reports having NOT received the Covid vaccine. Last tetanus immunization: up to date Flu vaccine is not up to date. - Social history:: Smoking status: Patient reports the use of cigarette tobacco products, smokes one pack cigarettes per day. Patient/guardian denies using alcohol, street drugs. ROS: 23:40 Eyes: Negative for injury, pain, redness, and discharge, ENT: Negative for injury, pkl pain, and discharge, Neck: Negative for injury, pain, and swelling, Cardiovascular: Negative for chest pain, palpitations, and edema. 23:40 Respiratory: Positive for shortness of breath, at rest. 23:40 Abdomen/GI: Positive for nausea, Negative for vomiting, diarrhea. 23:40 Back: Positive for pain at rest, of the mid back. 23:40 : Negative for urinary symptoms. 23:40 MS/extremity: Negative for acute changes. 23:40 Skin: Negative for rash. 23:40 Neuro: Negative for altered mental status, loss of consciousness. Exam: 23:40 Head/Face: Normocephalic, atraumatic. Eyes: Pupils equal round and reactive to light, pkl extra-ocular motions intact. Lids and lashes normal. Conjunctiva and sclera are non-icteric and not injected. Cornea within normal limits. Periorbital areas with no swelling, redness, or edema. ENT: Nares patent. No nasal discharge, no septal abnormalities noted. Tympanic membranes are normal and external auditory canals are clear. Oropharynx with no redness, swelling, or masses, exudates, or evidence of obstruction, uvula midline. Mucous membranes moist. Neck: Trachea midline, no thyromegaly or masses palpated, and no cervical lymphadenopathy. Supple, full range of motion without nuchal rigidity, or vertebral point tenderness. No Meningismus. Chest/axilla: Normal chest wall appearance and motion. Nontender with no deformity. No lesions are appreciated. Cardiovascular: Regular rate and rhythm with a normal S1 and S2. No gallops, murmurs, or rubs. Normal PMI, no JVD. No pulse deficits. 23:40 Respiratory: mild respiratory distress is noted, Respirations: normal, Breath sounds: bronchial sounds, that are mild, are scattered. 23:40 Abdomen/GI: Bowel sounds: normal, Palpation: abdomen is soft and non-tender, in all quadrants. 23:40 Back: Exam negative for acute changes. 23:40 : Exam negative for acute changes. 23:40 Musculoskeletal/extremity: Exam is negative for acute changes. 23:40 Skin: Exam negative for rash. 23:40 Neuro: Orientation: is normal, Mentation: is normal, Cranial nerves: grossly normal, Motor: is normal. Vital Signs: 22:52 BP 139 / 81; Pulse 99; Resp 16; Temp 98.1(TE); Pulse Ox 98% 15 lpm ; dc2 22:55 BP 139 / 81; Pulse 99; Resp 16; Temp 97.8(TE); Pulse Ox 98% ; Weight 90.72 kg; Height 5 dc2 ft. 1 in. (154.94 cm); Pain 6/10; 22:55 Body Mass Index 37.79 (90.72 kg, 154.94 cm) dc2 MDM: 23:14 Patient medically screened. pkl 05/02 02:16 Data reviewed: vital signs, nurses notes, lab test result(s), radiologic studies, plain pkl films. ED course: does not want to take patient home. Talked to Scout ( WAIST CUTTER ) For observation ( Dr. Brewer ). 05/01 23:32 Order name: Basic Metabolic Panel; Complete Time: 00:59 pkl 05/01 23:32 Order name: CBC with Diff; Complete Time: 00:17 pkl 05/01 23:32 Order name: LFT's; Complete Time: 00:59 pkl 05/01 23:32 Order name: Magnesium; Complete Time: 00:59 pkl 05/01 23:32 Order name: NT PRO-BNP; Complete Time: 00:59 pkl 05/01 23:32 Order name: PT-INR; Complete Time: 00:17 pkl 05/01 23:32 Order name: Troponin (emerg Dept Use Only); Complete Time: 00:59 pkl 05/01 23:32 Order name: ABG; Complete Time: 01:40 pkl 05/01 23:34 Order name: Lactate; Complete Time: 00:59 pkl 05/01 23:34 Order name: Procalcitonin; Complete Time: 00:59 pkl 05/02 06:32 Order name: Troponin I EDMS 05/02 07:49 Order name: Glucose, Ancillary Testing EDMS 05/02 11:15 Order name: Troponin I EDMS 05/02 13:59 Order name: Glucose, Ancillary Testing EDMS 05/01 23:32 Order name: XRAY Chest (1 view) pkl 05/01 23:32 Order name: EKG; Complete Time: 23:32 pkl 05/01 23:32 Order name: Cardiac monitoring; Complete Time: 23:40 pkl 05/02 14:36 Order name: CT EDMS 05/02 21:41 Order name: Glucose, Ancillary Testing EDMS 05/03 04:46 Order name: CBC with Automated Diff EDMS 05/03 05:10 Order name: Comprehensive Metabolic Panel EDMS 05/03 05:10 Order name: Phosphorus EDMS 05/03 05:10 Order name: Lipid Profile EDMS 05/03 05:10 Order name: Magnesium EDMS 05/03 05:10 Order name: Thyroid Stimulating Hormone EDMS 05/03 09:17 Order name: Glucose, Ancillary Testing EDMS 05/01 23:32 Order name: EKG - Nurse/Tech; Complete Time: 00:00 pkl 05/01 23:32 Order name: IV Saline Lock; Complete Time: 23:40 pkl 05/01 23:32 Order name: Labs collected and sent; Complete Time: 23:41 pkl 05/01 23:32 Order name: O2 Per Protocol; Complete Time: 23:41 pkl 05/01 23:32 Order name: O2 Sat Monitoring; Complete Time: 23:41 pkl Administered Medications: 00:01 Drug: Zofran (Ondansetron) 4 mg Route: IVP; Infused Over: 2 mins; Site: left dc2 antecubital; 00:45 Follow up: Response: Nausea is decreased dc2 00:50 Follow up: Response: Nausea is decreased dc2 02:30 Drug: Ativan (LORazepam) 0.5 mg Route: IVP; Site: left antecubital; dc2 03:10 Follow up: Response: Anxiety decreased dc2 02:50 Drug: Albuterol - atroVENT (ipratropium) (3:1) (2.5 mg - 0.5 mg) 3 ml Route: Nebulizer; dc2 03:10 Follow up: Response: Anxiety decreased dc2 Disposition Summary: 05/02/21 02:22 Hospitalization Ordered Hospitalization Status: Observation pkl Provider: Kevin Brewer pkmark Condition: Stable pkl Problem: new pkl Symptoms: are unchanged pkl Bed/Room Type: Standard pkl Location: [facility] ER HOLD(05/02/21 02:39) mw Room Assignment: ERHOLD-(05/02/21 02:39) mw Diagnosis - Respiratory distress. Hypoxia pkl Forms: - Medication Reconciliation Form pkl - SBAR form pkl Signatures: Dispatcher [employer] EDJohana Romero RN RN mw Yemi Overton MD MD pkl Suzy, OLIVE Chow RN dc2 Corrections: (The following items were deleted from the chart) 01:42 01:02 Chest For PE Angio+CT.RAD.BRZ ordered. EDCA EDMS 02:39 02:22 Telemetry/MedSurg (observation) pkl mw 02:39 02:22 pkl mw
--- NOTE | 2021-05-02 02:22 | ER ---
Nurse's Notes [facility] Name: Janie Erickson Age: 60 yrs Sex: Female : 1960 Arrival Date: 05/01/2021 Time: 22:50 Bed 26 Private MD: Diagnosis: Respiratory distress. Hypoxia Presentation: 05/01 22:52 Chief complaint: Patient states: Presents to ED for headache, nausea, flank and lower dc2 back pain. Pt released from this hospital at 2pm today. Coronavirus screen: Vaccine status: Patient reports being unvaccinated. Client denies travel out of the [place] in the last 14 days. At this time, the client does not indicate any symptoms associated with coronavirus-19. The client reports previous COVID testing was negative. Ebola Screen: Patient negative for fever greater than or equal to 101.5 degrees Fahrenheit, and additional compatible Ebola Virus Disease symptoms Patient denies exposure to infectious person. Patient denies travel to an Ebola-affected area in the 21 days before illness onset. No symptoms or risks identified at this time. Initial Sepsis Screen: Does the patient meet any 2 criteria? No. Patient's initial sepsis screen is negative. Risk Assessment: Do you want to hurt yourself or someone else? Patient reports no desire to harm self or others. Onset of symptoms was April 20, 2021 at 12:00. 22:52 Method Of Arrival: EMS: [facility] dc2 22:52 Acuity: PAULINA 3 dc2 23:00 Initial Sepsis Screen: Does the patient have a suspected source of infection? No. dc2 Patient's initial sepsis screen is negative. Triage Assessment: 22:56 General: Appears in no apparent distress. uncomfortable, obese, well groomed, Pt with dc2 trach and home ventilator in use. Pt 98% oxygen. Pt unable to speak, does mouth words. . Pain: Complains of pain in Pt complains of headache, flank pain and lower back pain . Denies any urinary symptoms. Pain radiates to Lower back pain radiates to both flanks, headache is generalized, rates both 6/10. Neuro: No deficits noted. Cardiovascular: No deficits noted. Respiratory: Reports shortness of breath at rest pt states is usually able to sit / lie abut 30 degrees but reports unable to do this down without getting short of breathe. Denies shortness of breath. GI: Bowel sounds present X 4 quads. : No signs and/or symptoms were reported regarding the genitourinary system. Musculoskeletal: Pt watched while transferring from stretcher to bed, is able to move self but states she doesn't really walk. 23:00 General: Behavior is calm, cooperative. dc2 Historical: - Allergies: 22:55 Sulfa (Sulfonamide Antibiotics); dc2 - PMHx: 22:55 Chronic obstructive lung disease; diabetes mellitus; Congestive heart failure; dc2 - Immunization history:: Adult Immunizations up to date, Client reports having NOT received the Covid vaccine. Last tetanus immunization: up to date Flu vaccine is not up to date. - Social history:: Smoking status: Patient reports the use of cigarette tobacco products, smokes one pack cigarettes per day. Patient/guardian denies using alcohol, street drugs. Screenin:00 Abuse screen: Denies threats or abuse. Denies injuries from another. Nutritional dc2 screening: No deficits noted. Tuberculosis screening: No symptoms or risk factors identified. Never had TB. Fall Risk No fall in past 12 months (0 pts). Secondary diagnosis (15 points) IV access (20 points). Ambulatory Aid- Furniture (30 pts.). Gait- Impaired (20 pts.). Mental Status- Oriented to own ability (0 pts). Total Delgadillo Fall Scale indicates High Risk Score (45 or more points). Fall prevention measures have been instituted. Side Rails Up X 2 Placed Close to Nursing Station Frequent Obs/Assessments Occuring Family Present and informed to notify staff if the need to leave the bedside. Assessment: 23:50 Reassessment: Pt calls out for water, when water brought to patient, she said she has dc2 nausea . Instructed not to drink the water and I would notify Dr. Overton. 05/02 03:45 Reassessment: Pt asking for something for anxiety. States cannot sleep, denies sob. dc2 Will notify PA. 03:51 Reassessment: Speak to Scout states will order PO medication for anxiety. dc2 03:52 Reassessment: Pt informed of medication order to be given. dc2 Vital Signs: 05/01 22:52 BP 139 / 81; Pulse 99; Resp 16; Temp 98.1(TE); Pulse Ox 98% 15 lpm ; dc2 22:55 BP 139 / 81; Pulse 99; Resp 16; Temp 97.8(TE); Pulse Ox 98% ; Weight 90.72 kg; Height 5 dc2 ft. 1 in. (154.94 cm); Pain 6/10; 22:55 Body Mass Index 37.79 (90.72 kg, 154.94 cm) dc2 ED Course: 22:50 Patient arrived in ED. ja2 22:52 Claduine Almonte, RN is Primary Nurse. dc2 22:55 Triage completed. dc2 22:55 Arm band placed on left wrist. Patient placed Pt placed in hospital bed due to being dc2 uncomfortable in a stretcher. Pt moved to room 26. 23:00 Patient has correct armband on for positive identification. Fall risk band placed. dc2 Placed in gown. Bed in low position. Call light in reach. Side rails up X 1. laboratory monitor on. Pulse ox on. NIBP on. 23:00 Warm blanket given. Pillow given. dc2 23:00 No provider procedures requiring assistance completed. dc2 23:14 Yemi Overton MD is Attending Physician. pkl 23:19 Maintain EMS IV. Dressing intact. Good blood return noted. Site clean \T\ dry. Gauge \T\ dc 2 site: 18g to Left AC. CDI and no redness or swelling to site. Positive blood return. Flushed left antecubital. O2 via 15L with home ventilator Response to oxygen therapy: symptoms remain unchanged. 23:41 Basic Metabolic Panel Sent. dc2 23:41 CBC with Diff Sent. dc2 23:41 LFT's Sent. dc2 23:41 Magnesium Sent. dc2 23:41 NT PRO-BNP Sent. dc2 23:41 PT-INR Sent. dc2 23:41 Troponin (emerg Dept Use Only) Sent. dc2 23:41 Procalcitonin Sent. dc2 23:50 XRAY Chest (1 view) In Process Unspecified. EDMS 23:58 Initial lab(s) drawn, by me, sent to lab. dc2 10/08 00:00 Lactate Sent. dc2 00:00 Procalcitonin Sent. dc2 01:20 Respiratory care therapist to see patient. dc2 02:19 Kevin Brewer is Hospitalizing Provider. pkl 04:00 Maintain EMS IV. IV Flushed Converted IV to saline lock on left antecubital area dc2 09:41 Echocardiogram with doppler done by technical assistant. tc Administered Medications: 00:01 Drug: Zofran (Ondansetron) 4 mg Route: IVP; Infused Over: 2 mins; Site: left dc2 antecubital; 00:45 Follow up: Response: Nausea is decreased dc2 00:50 Follow up: Response: Nausea is decreased dc2 02:30 Drug: Ativan (LORazepam) 0.5 mg Route: IVP; Site: left antecubital; dc2 03:10 Follow up: Response: Anxiety decreased dc2 02:50 Drug: Albuterol - atroVENT (ipratropium) (3:1) (2.5 mg - 0.5 mg) 3 ml Route: Nebulizer; dc2 03:10 Follow up: Response: Anxiety decreased dc2 Outcome: 02:22 Decision to Hospitalize by Provider. pkl 04:00 Admitted to ER Hold. Please see [facility] for further documentation. dc2 04:00 Condition: stable 04:00 Instructed on the need for admit. 10 13:39 Patient left the ED. oh Signatures: Dispatcher [employer] EDMS Yemi Overton MD MD pkl Nicole Mclean, hand deicer element winder EKG Felicia Robles Denise, RN RN [email or web address] Martha Melgar RN RN oh Corrections: (The following items were deleted from the chart) 05/02 02:59 02:58 Ativan (LORazepam) 0.5 mg IVP in left antecubital dc2 dc2
[2021-05-02] MEDS ORDERED: LORazepam 2 MG/ML VIAL ONE (02:49)
[2021-05-02] MEDS ORDERED: ALBUTEROL 2.5 MG/3 ML NEB SOL ONE ×6 (03:02→21:14)
[2021-05-02] MEDS ORDERED: IPRATROPIUM BROM 0.5MG/2.5ML ONE ×5 (03:02→21:14)
--- NOTE | 2021-05-02 03:34 | P.HP ---
Certification for Inpatient Patient admitted to: Observation With expected LOS: <2 Midnights Patient will require the following post-hospital care: Home Health Services Practitioner: I am a practitioner with admitting privileges, knowledge of patient current condition, hospital course, and medical plan of care. Services: Services provided to patient in accordance with Admission requirements found in Title 42 Section 412.3 of the Code of Federal Regulations Patient History Date of Service: 05/02/21 Reason for admission: dyspnea History of Present Illness: Ms. Erickson is a 60 yo F with a trach, COPD, CHF, DM who presents with one day of SOB. She was discharged yesterday for fever and UTI. Blood cultures and urine cultures were negative and her fever resolved so she was discharged on oral antibiotics. Today, brings her back for reported SOB. He has done breathing treatments at home with no improvement and keeps having to increase her oxygen. He says he cannot return home with her as she will run out of her oxygen if he does so. Her sats are 97-99%. Repeat CXR with no acute findings. O2 of 157 on ABG. Allergies Sulfa (Sulfonamide Antibiotics) Allergy (Verified 04/21/14 07:51) Itching/Hives/Rash Home Medications: predniSONE [Prednisone*] 40 mg PO [id number] #20 tab 04/21/14 Cefpodoxime Proxetil 100 mg PO BID #14 tablet 05/01/21 Cyclobenzaprine [Flexeril*] 10 mg PO TID 05/01/21 Dulaglutide [Trulicity] 5 ml 05/01/21 Famotidine 40 mg PO DAILY 05/01/21 Furosemide [Lasix*] 20 mg PO DAILY 05/01/21 Hydrocodone Bit/Acetaminophen [Hydrocodon-Acetaminophn 10-325] 1 tab PO Q6H PRN 05/01/21 Insulin Detemir [Levemir] 60 units SQ DAILY 05/01/21 Ipratropium/Albuterol Sulfate [Iprat-Albut 0.5-3(2.5) mg/3 ml] 3 ml NEB QID 05/01/21 Iron/FA/Vit B-Com W/C [Hemocyte Plus*] 1 tab PO BEDTIME 05/01/21 Levothyroxine [Synthroid*] 0.05 mg PO DAILY 05/01/21 Magnesium [Magnesium Gluconate] 500 mg PO BEDTIME 05/01/21 Metformin HCl 500 mg PO BID 05/01/21 PARoxetine HCL [Paroxetine HCl] 40 mg PO DAILY 05/01/21 Potassium Gluconate [Potassium] 595 mg PO 05/01/21 Pregabalin 300 mg PO BID 05/01/21 Quetiapine [Seroquel*] 50 mg PO BEDTIME 05/01/21 Spironolactone 25 mg PO DAILY 05/01/21 ondansetron HCL [Ondansetron HCl] 8 mg PO Q8H PRN 05/01/21 - Past Medical/Surgical History Diabetic: Yes -: COPD -: CHF -: DM -: trach - Family History Family History: Reviewed- Non-Contributory - Social History Smoking Status: Current every day smoker Alcohol use: No CD- Drugs: No Caffeine use: No Place of Residence: Home Review of Systems 10-point ROS is otherwise unremarkable Respiratory: Shortness of Breath, SOB with Excertion Physical Examination - Physical Exam General: Alert, In no apparent distress HEENT: Atraumatic, PERRLA, Mucous membr. moist/pink, EOMI, Sclerae nonicteric Neck: Supple, 2+ carotid pulse no bruit, No LAD, Without JVD or thyroid abnormality Respiratory: Diminished Cardiovascular: Regular rate/rhythm, Normal S1 S2 Gastrointestinal: Normal bowel sounds, No tenderness Musculoskeletal: No tenderness Integumentary: No rashes Neurological: Normal strength at 5/5 x4 extr, Normal tone, Normal affect, Abnormal speech Lymphatics: No axilla or inguinal lymphadenopathy - Studies Laboratory Data (last 24 hrs) 05/01/21 23:45: PT 12.6 H, INR 1.09 05/01/21 23:45: WBC 5.80, Hgb 9.5 L, Hct 28.3 L, Plt Count 166 05/01/21 23:45: Sodium 140, Potassium 4.1, BUN 16, Creatinine 0.84, Glucose 192 H, Magnesium 2.4, Total Bilirubin 0.4, AST 91 H, ALT 84 H, Alkaline Phosphatase 216 H Assessment and Plan - Problems (Diagnosis) (1) CHF (congestive heart failure) Current Visit: No Status: Chronic Qualifiers: Heart failure type: unspecified Heart failure chronicity: unspecified Qualified Code(s): I50.9 - Heart failure, unspecified (2) COPD (chronic obstructive pulmonary disease) Current Visit: No Status: Chronic Qualifiers: COPD type: unspecified COPD Qualified Code(s): J44.9 - Chronic obstructive pulmonary disease, unspecified (3) Chronic respiratory failure with hypoxia Current Visit: No Status: Chronic (4) T2DM (type 2 diabetes mellitus) Current Visit: No Status: Chronic Qualifiers: Diabetes mellitus long-term insulin use: unspecified keno terminal operator insulin use status Diabetes mellitus complication status: without complication Qualified Code(s): E11.9 - Type 2 diabetes mellitus without complications (5) Tracheostomy status Current Visit: No Status: Chronic - Plan respiratory therapy consulted, social work consulted will obtain ECHO, will give Lasix IV daily breathing treatments PRN continue IV antibiotics sliding scale insulin and accuchecks reconcile and continue home medications DVT ppx Discharge Plan: Home Plan to discharge in: 24 Hours - Advance Directives Does patient have a Living Will: No Does patient have a Durable POA for Healthcare: No - Code Status/Comfort Care Code Status Assessed: Yes (full code ) Critical Care: No Time Spent Managing Pts Care (In Minutes): 70
[2021-05-02] MEDS ORDERED: ACETAMINOPHEN 500 MG TAB PO PRN (04:16)
[2021-05-02] MEDS ORDERED: LORAZEPAM 0.5 MG TABLET PO PRN (04:16)
[2021-05-02] MEDS ORDERED: ALBUTEROL 2.5 MG/3 ML NEB SOL NEB PRN (04:16)
[2021-05-02] MEDS ORDERED: IPRATROPIUM BROM 0.5MG/2.5ML NEB PRN (04:16)
[2021-05-02] MEDS: METHYLPREDNISOLONE 40 MG INJ IV SCH ×3 (04:16→17:00)
[2021-05-02] MEDS ORDERED: LORAZEPAM 0.5 MG TABLET ONE ×2 (04:47→22:05)
[2021-05-02] MEDS ORDERED: LORAZEPAM 1 MG TABLET PO ONE (06:28)
[2021-05-02] MEDS ORDERED: LORAZEPAM 1 MG TABLET ONE (06:57)
[2021-05-02] MEDS ORDERED: METHYLPREDNISOLONE 40 MG INJ ONE ×3 (07:02→18:56)
[2021-05-02] MEDS: INSULIN -REGULAR HUMAN 50 UNIT/0.5 ML ML SQ SCH ×4 (07:30→21:00)
[2021-05-02] MEDS: PREGABALIN 150 MG CAP PO SCH ×4 (08:43→21:00)
--- NOTE | 2021-05-02 08:51 | RAD REPORT ---
EXAM DESCRIPTION: RAD - Chest Single View - 05/01/2021 11:49 pm CLINICAL HISTORY: DYSPNEA Chest pain. COMPARISON: Chest Single View dated 04/30/2021; CHEST SINGLE VIEW dated 04/21/2014 FINDINGS: Portable technique limits examination quality. Calcified granuloma is present in the left mid lung. Mild to moderate bilateral pulmonary opacities a re present, greater on the left likely representing pulmonary infection and appearing essentially sta ble since 04/30/2021. The heart is normal in size. Tracheostomy tube is unchanged in position. IMPRESSION: Stable chest since 04/30/2021.
[2021-05-02] MEDS ORDERED: FUROSEMIDE 20 MG/ 2ML VIAL IV SCH (09:00)
[2021-05-02] MEDS: Levofloxacin 750mg IV 750 MG/150 ML BAG IV SCH (09:00)
[2021-05-02] MEDS ORDERED: PREGABALIN 50 MG CAP ONE (09:02)
[2021-05-02] MEDS ORDERED: FUROSEMIDE 20 MG/ 2ML VIAL ONE (09:16)
[2021-05-02] MEDS ORDERED: Levofloxacin 750mg IV 750 MG/150 ML BAG IV ONE (09:17)
[2021-05-02] MEDS: CYCLOBENZAPRINE 10 MG TAB PO SCH ×3 (10:22→21:00)
[2021-05-02] MEDS: SPIRONOLACTONE 25 MG TABLET PO SCH (10:25)
[2021-05-02] MEDS ORDERED: ONDANSETRON 4 MG (ODT) TAB PO PRN (10:48)
[2021-05-02] MEDS ORDERED: CYCLOBENZAPRINE 10 MG TAB ONE ×2 (12:44→21:16)
[2021-05-02] MEDS: ALBUTEROL 2.5 MG/3 ML NEB SOL NEB SCH ×3 (13:00→20:00)
[2021-05-02] MEDS: IPRATROPIUM BROM 0.5MG/2.5ML IH SCH ×3 (13:00→20:00)
--- NOTE | 2021-05-02 13:02 | ECHO ---
HEIGHT: 5 ft 1 in WEIGHT: 199 lb 15.348 oz DATE OF STUDY: 05/02/[address]: Scout Guerra 2-DIMENSIONAL: YES M.MODE: YES DOPPLER: YES COLOR FLOW: YES TDS: YES PORTABLE: NO DEFINITY: NO BUBBLE STUDY: NO DIAGNOSIS: SHORTNESS OF BREATH CARDIAC HISTORY: CATHERIZATION: NO SURGERY: NO PROSTHETIC VALVE: NO PACEMAKER: NO MEASUREMENTS (cm) DIASTOLIC (NORMALS) SYSTOLIC (NORMALS) IVSd 1.0 (0.6-1.2) LA Diam 2.9 (1.9-4.0) LVEF 55-60% LVIDd 4.3 (3.5-5.7) LVIDs 3.3 (2.0-3.5) %FS 24% LVPWd 1.1 (0.6-1.2) Ao Diam 2.6 (2.0-3.7) 2 DIMENSIONAL ASSESSMENT: RIGHT ATRIUM: NORMAL LEFT ATRIUM: NORMAL RIGHT VENTRICLE: NORMAL LEFT VENTRICLE: NORMAL TRICUSPID VALVE: NORMAL MITRAL VALVE: NORMAL PULMONIC VALVE: NORMAL AORTIC VALVE: NORMAL PERICARDIAL EFFUSION: SMALL AORTIC ROOT: NORMAL LEFT VENTRICULAR WALL MOTION: UNABLE TO EVALUATE. DOPPLER/COLOR FLOW: NORMAL COMMENTS: NORMAL LEFT VENTRICULAR EJECTION FRACTION 55-60%. UNABLE TO EVALUATE WALL MOTION DUE TO POOR WINDOWS. SMALL PERICARDIAL EFFUSION. TECHNOLOGIST: Nely MILLER
--- NOTE | 2021-05-02 13:35 | P.CNS ---
Date of Consult: 05/02/21 Reason for Consult: Shortness of breath Chief Complaint: dyspnea History of Present Illness: Patient is 60 years of age had a trach secondary to COPD also has underlying metabolic syndrome was discharged recently came back again patient complaining of dyspnea no history of any sepsis at the bedside sputum has increased in volume just a little bit Allergies Sulfa (Sulfonamide Antibiotics) Allergy (Verified 04/21/14 07:51) Itching/Hives/Rash Home Medications: predniSONE [Prednisone*] 40 mg PO [id number] #20 tab 04/21/14 Cefpodoxime Proxetil 100 mg PO BID #14 tablet 05/01/21 Cyclobenzaprine [Flexeril*] 10 mg PO TID 05/01/21 Famotidine 40 mg PO DAILY 05/01/21 Furosemide [Lasix*] 20 mg PO DAILY 05/01/21 Hydrocodone Bit/Acetaminophen [Hydrocodon-Acetaminophn 10-325] 1 tab PO Q6H PRN 05/01/21 Insulin Detemir [Levemir] 60 units SQ DAILY 05/01/21 Ipratropium/Albuterol Sulfate [Iprat-Albut 0.5-3(2.5) mg/3 ml] 3 ml NEB QID 05/01/21 Iron/FA/Vit B-Com W/C [Hemocyte Plus*] 1 tab PO BEDTIME 05/01/21 Levothyroxine [Synthroid*] 0.05 mg PO DAILY 05/01/21 Magnesium [Magnesium Gluconate] 500 mg PO BEDTIME 05/01/21 Metformin HCl 500 mg PO BID 05/01/21 PARoxetine HCL [Paroxetine HCl] 40 mg PO DAILY 05/01/21 Potassium Gluconate [Potassium] 595 mg PO 05/01/21 Pregabalin 300 mg PO BID 05/01/21 Quetiapine [Seroquel*] 50 mg PO BEDTIME 05/01/21 Spironolactone 25 mg PO DAILY 05/01/21 ondansetron HCL [Ondansetron HCl] 8 mg PO Q8H PRN 05/01/21 Dulaglutide [Trulicity] 05/02/21 - Past Medical/Surgical History Diabetic: Yes -: COPD -: CHF -: DM -: trach - Social History Smoking Status: Current every day smoker Alcohol use: No CD- Drugs: No Caffeine use: No Place of Residence: Home Review of Systems is unable to be obtained Physical Examination Temp Pulse Resp BP Pulse Ox 98.0 F 88 17 122/80 100 05/02/21 05:00 05/02/21 11:20 05/02/21 11:20 05/02/21 11:20 05/02/21 11:20 General: Alert, Cooperative Respiratory: Clear to auscultation bilaterally, Diminished Cardiovascular: No edema, Normal pulses Gastrointestinal: Normal bowel sounds, Soft and benign Laboratory Data (last 24 hrs) 05/01/21 23:45: PT 12.6 H, INR 1.09 05/01/21 23:45: WBC 5.80, Hgb 9.5 L, Hct 28.3 L, Plt Count 166 05/01/21 23:45: Sodium 140, Potassium 4.1, BUN 16, Creatinine 0.84, Glucose 192 H, Magnesium 2.4, Total Bilirubin 0.4, AST 91 H, ALT 84 H, Alkaline Phosphatase 216 H - Problems (1) Acute and chronic respiratory failure Current Visit: Yes Status: Acute Plan: Patient is 60 years of age with a history of tracheostomy secondary to COPD she has been managed by a doctor at [facility] came in with worsening dyspnea she was just recently discharged with the possibility of UTI continues to complain of dyspnea labs reviewed no evidence of sepsis she has presumed chronic hypercapnia minimal interstitial changes on chest x-ray I ordered a CT pulmonary angiogram sputum cultures continue with steroids and bronchodilators for now hemodynamically stable saturations satisfactory
[2021-05-02] MEDS ORDERED: SPIRONOLACTONE 25 MG TABLET ONE (14:00)
--- NOTE | 2021-05-02 14:36 | RAD REPORT ---
EXAM DESCRIPTION: CT - Chest Angio - 05/02/2021 2:25 pm CLINICAL HISTORY: Shortness of breath COMPARISON: April 30, 2021 CT TECHNIQUE: Dynamically enhanced axial 3 mm thick images of the chest were obtained during administra tion of <100> mL Isovue 370 IV contrast. Coronal and oblique reconstruction images were generated and reviewed. Exam utilizes a protocol for optimal evaluation of pulmonary arterial tree. Maximum intensity projections 3D imaging was utilized All CT scans are performed using dose optimization technique as appropriate and may include automated exposure control or mA/KV adjustment according to patient size. FINDINGS: A pulmonary embolus is not seen. A thoracic aortic aneurysm is not noted. A pleural effusion is not seen. A pericardial effusion is not seen. Mild right lower lobe atelectasis. Calcified granuloma left lung. No significant lymphadenopathy seen Tracheostomy tube in place IMPRESSION: Negative for a pulmonary embolism.
[2021-05-02] MEDS ORDERED: INSULIN -REGULAR HUMAN 50 UNIT/0.5 ML ML ONE ×2 (14:54→22:03)
--- NOTE | 2021-05-02 16:59 | P.PN ---
Subjective Date of Service: 05/02/21 Chief Complaint: dyspnea No new complaint since admission. Patient is stable on her vent. Her oxygen saturation has been 100%. Physical Examination - Vital Signs Temperature: 98.0 F Blood Pressure: 122/80 Pulse: 88 Respirations: 17 Pulse Ox (%): 100 - Physical Exam General: In no apparent distress Neck: Other (Tracheostomy-vent) Respiratory: Normal air movement, Other (Bilateral upper airway transmitted sounds) Cardiovascular: No edema, Regular rate/rhythm, Normal S1 S2 Gastrointestinal: Normal bowel sounds, Soft and benign, Non-distended, No tenderness Musculoskeletal: No swelling Integumentary: No rashes Neurological: Other (No focal motor deficit.) - Studies Laboratory Data (last 24 hrs) 05/01/21 23:45: PT 12.6 H, INR 1.09 05/01/21 23:45: WBC 5.80, Hgb 9.5 L, Hct 28.3 L, Plt Count 166 05/01/21 23:45: Sodium 140, Potassium 4.1, BUN 16, Creatinine 0.84, Glucose 192 H, Magnesium 2.4, Total Bilirubin 0.4, AST 91 H, ALT 84 H, Alkaline Phosphatase 216 H Assessment And Plan - Current Problems (Diagnosis) (1) Dyspnea Current Visit: Yes Status: Acute (2) UTI (urinary tract infection) Current Visit: No Status: Acute Qualifiers: Urinary tract infection type: site unspecified Hematuria presence: without hematuria Qualified Code(s): N39.0 - Urinary tract infection, site not specified (3) COPD (chronic obstructive pulmonary disease) Current Visit: No Status: Chronic Qualifiers: COPD type: unspecified COPD Qualified Code(s): J44.9 - Chronic obstructive pulmonary disease, unspecified (4) Chronic respiratory failure with hypoxia Current Visit: No Status: Chronic (5) T2DM (type 2 diabetes mellitus) Current Visit: No Status: Chronic Qualifiers: Diabetes mellitus halfway insulin use: unspecified halfway insulin use status Diabetes mellitus complication status: without complication Qualified Code(s): E11.9 - Type 2 diabetes mellitus without complications (6) Tracheostomy status Current Visit: No Status: Chronic - Plan Pulmonary input appreciated. CTA thorax unremarkable. No PE. It reported mild atelectasis. Continue bronchodilators. Antibiotics for possible pneumonia. Pro calcitonin is elevated. Urine culture no growth. Continue Lantus insulin for glucose management. Continue home vent settings as patient is saturating at 100%.
[2021-05-02] MEDS: ONDANSETRON 4 MG/2 ML VIAL IV PRN (18:54)
[2021-05-02] MEDS ORDERED: QUETIAPINE 25 MG TAB PO SCH (21:00)
[2021-05-02] MEDS ORDERED: FE SULF/FA/VIT B COMP & C TAB PO SCH (21:00)
[2021-05-02] MEDS: FAMOTIDINE 20 MG TAB PO SCH (21:00)
[2021-05-02] MEDS ORDERED: HOME MED 1 EA UNK (Magnesium [Magnesium Gluconate] 200 MG Tablet) PO SCH (21:00)
[2021-05-02] MEDS ORDERED: PREGABALIN 75 MG CAP PO ONE (21:17)
[2021-05-02] MEDS ORDERED: FAMOTIDINE 20 MG TAB ONE (21:17)
[2021-05-02] MEDS ORDERED: QUETIAPINE 25 MG TAB ONE (21:48)
[2021-05-02] MEDS ORDERED: FE SULF/FA/VIT B COMP & C TAB ONE (21:48)
[2021-05-02] MEDS ORDERED: HYDROCODONE/APAP 10/325 TAB ONE (22:39)
[2021-05-02] MEDS: HYDROCODONE/APAP 10/325 TAB PO PRN (22:40)
[2021-05-03] MEDS: METHYLPREDNISOLONE 40 MG INJ IV SCH ×2 (01:00→09:00)
[2021-05-03] MEDS ORDERED: METHYLPREDNISOLONE 40 MG INJ ONE ×2 (01:33→10:38)
[2021-05-03 04:40] LABS: Absolute Lymphocytes (CBC) 0.4 K/uL (0.7-4.9); Basophils % 0.2 % (0-1.3); Hematocrit 27.1 % (36.0-45.0); Lymphocytes % 9.5 % (15.3-44.8); MPV 7.4 fL (7.6-11.3); RBC Red Blood Cell Count 3.11 M/uL (3.86-4.86)
[2021-05-03 05:09] LABS: Albumin 3.1 g/dL (3.4-5.0); Bilirubin Total 0.4 mg/dL (0.2-1.0); Magnesium 2.5 mg/dL (1.8-2.4); Phosphorus 2.2 mg/dL (2.5-4.9); Protein, Total 7.8 g/dL (6.4-8.2); Thyroid Stimulating Hormone 0.566 uIU/mL (0.360-3.740)
[2021-05-03] MEDS: HYDROCODONE/APAP 10/325 TAB PO PRN (05:52)
[2021-05-03] MEDS ORDERED: HYDROCODONE/APAP 10/325 TAB ONE (05:58)
[2021-05-03 06:20] VITALS: BMI 37.5
[2021-05-03] MEDS ORDERED: POTASS/SODIUM PHOSPHATE 1 PKT POWD.PACK ONE (07:14)
[2021-05-03] MEDS: INSULIN -REGULAR HUMAN 50 UNIT/0.5 ML ML SQ SCH (07:30)
[2021-05-03] MEDS: IPRATROPIUM BROM 0.5MG/2.5ML IH SCH ×2 (08:00→11:33)
[2021-05-03] MEDS: ALBUTEROL 2.5 MG/3 ML NEB SOL NEB SCH ×2 (08:00→11:33)
[2021-05-03] MEDS ORDERED: ALBUTEROL 2.5 MG/3 ML NEB SOL ONE ×2 (08:24→11:55)
[2021-05-03] MEDS ORDERED: IPRATROPIUM BROM 0.5MG/2.5ML ONE ×2 (08:25→11:56)
[2021-05-03] MEDS: PREGABALIN 150 MG CAP PO SCH ×2 (09:00)
[2021-05-03] MEDS: FAMOTIDINE 20 MG TAB PO SCH (09:00)
[2021-05-03] MEDS: CYCLOBENZAPRINE 10 MG TAB PO SCH (09:00)
[2021-05-03] MEDS ORDERED: INSULIN GLARGINE 100 UNITS/ML SQ SCH (09:00)
[2021-05-03] MEDS ORDERED: FUROSEMIDE 20 MG TABLET PO SCH (09:00)
[2021-05-03] MEDS: Levofloxacin 750mg IV 750 MG/150 ML BAG IV SCH (09:00)
[2021-05-03] MEDS: SPIRONOLACTONE 25 MG TABLET PO SCH (09:00)
[2021-05-03] MEDS ORDERED: LEVOTHYROXINE SOD 0.05 MG TABLET PO SCH (09:00)
[2021-05-03] MEDS ORDERED: PARoxetine HCL 10 MG TAB PO SCH (09:00)
[2021-05-03 09:07] VITALS: O2SAT 97
[2021-05-03] MEDS ORDERED: INSULIN -REGULAR HUMAN 50 UNIT/0.5 ML ML ONE (09:36)
[2021-05-03] MEDS ORDERED: FUROSEMIDE 20 MG TABLET ONE (10:36)
[2021-05-03] MEDS ORDERED: PREGABALIN 50 MG CAP ONE (10:37)
[2021-05-03] MEDS ORDERED: CYCLOBENZAPRINE 10 MG TAB ONE (10:38)
[2021-05-03] MEDS ORDERED: FAMOTIDINE 20 MG TAB ONE (10:38)
[2021-05-03] MEDS ORDERED: Levofloxacin 750mg IV 750 MG/150 ML BAG IV ONE (10:38)
[2021-05-03] MEDS ORDERED: SPIRONOLACTONE 25 MG TABLET ONE (10:43)
--- NOTE | 2021-05-03 11:51 | P.DS ---
Admission Date: 05/03/21 Discharge Date: 05/03/21 Disposition: DC HOME/HOME HEALTH CARE Discharge Condition: FAIR Reason for Admission: dyspnea - Problems (1) Dyspnea Current Visit: Yes Status: Acute (2) UTI (urinary tract infection) Current Visit: No Status: Acute Qualifiers: Urinary tract infection type: site unspecified Hematuria presence: without hematuria Qualified Code(s): N39.0 - Urinary tract infection, site not spec ified (3) COPD (chronic obstructive pulmonary disease) Current Visit: No Status: Chronic Qualifiers: COPD type: unspecified COPD Qualified Code(s): J44.9 - Chronic obstructive pulmonary disease, unspecified (4) Chronic respiratory failure with hypoxia Current Visit: No Status: Chronic (5) T2DM (type 2 diabetes mellitus) Current Visit: No Status: Chronic Qualifiers: Diabetes mellitus usp insulin use: unspecified usp insulin use status Diabetes mellitus complication status: without complication Qualified Code(s): E11.9 - Type 2 diabetes mellitus without complications (6) Tracheostomy status Current Visit: No Status: Chronic Brief History of Present Illness: Ms. Erickson is a 60 yo F with a trach, COPD, CHF, DM who presented with one day of SOB. She was discharged the previous day for fever and UTI. Blood cultures and urine cultures were negative and her fever resolved and was discharged on oral antibiotics. brings her back to the ED with a report of SOB which did not respond to breathing treatment and increasing her oxygen. Her sats are 97- 99%. Repeat CXR with no acute findings. O2 of 157 on ABG in the ED. COPD exace rbation was suspected, patient was hospitalized for further management. Hospital Course: Patient admitted to the medical floor and treated for COPD exacerbation with scheduled bronchodilators, IV steroid and antibiotics. She was seen in consultation by pulmonary who diuresed her with Lasix. Patient was not hypoxic. She has mild hypercapnia. She appeared compensated for CHF. She has no wheezing, vent settings not changed. She is currently at baseline and deemed stable for discharge. She is prescribed short course prednisone to continue treatment for COPD. Vital Signs/Physical Exam: Temp Pulse Resp BP Pulse Ox 98.4 F 99 H 18 124/70 100 05/03/21 04:00 05/03/21 09:00 05/03/21 04:00 05/03/21 09:00 05/03/21 04:00 General: Alert, In no apparent distress, Oriented x3 HEENT: Mucous membr. moist/pink Neck: Other (Tracheostomy) Respiratory: Clear to auscultation bilaterally, Normal air movement Cardiovascular: Regular rate/rhythm, Normal S1 S2 Gastrointestinal: Normal bowel sounds, Soft and benign, Non-distended, No tenderness Musculoskeletal: No swelling Integumentary: No rashes Neurological: Normal strength at 5/5 x4 extr Laboratory Data at Discharge: WBC 4.40 K/uL (4.3-10.9) D 05/03/21 03:53 Hgb 9.1 g/dL (12.0-15.0) L 05/03/21 03:53 Hct 27.1 % (36.0-45.0) L 05/03/21 03:53 Plt Count 175 K/uL (152-406) 05/03/21 03:53 PT 12.6 SECONDS (9.5-12.5) H 05/01/21 23:45 INR 1.09 05/01/21 23:45 Sodium 135 mmol/L (136-145) L 05/03/21 03:53 Potassium 4.0 mmol/L (3.5-5.1) 05/03/21 03:53 BUN 23 mg/dL (7-18) H 05/03/21 03:53 Creatinine 0.86 mg/dL (0.55-1.3) 05/03/21 03:53 Glucose 216 mg/dL (74-106) H 05/03/21 03:53 Phosphorus 2.2 mg/dL (2.5-4.9) L 05/03/21 03:53 Magnesium 2.5 mg/dL (1.8-2.4) H 05/03/21 03:53 Total Bilirubin 0.4 mg/dL (0.2-1.0) 05/03/21 03:53 AST 37 U/L (15-37) 05/03/21 03:53 ALT 60 U/L (12-78) 05/03/21 03:53 Alkaline Phosphatase 191 U/L (45-117) H 05/03/21 03:53 Troponin I < 0.02 ng/mL (0.0-0.045) 05/02/21 10:40 Triglycerides 249 mg/dL (<150) H 05/03/21 03:53 Cholesterol 110 mg/dL (<200) 05/03/21 03:53 HDL Cholesterol 22 mg/dL (40-60) L 05/03/21 03:53 Cholesterol/HDL Ratio 5.00 05/03/21 03:53 Home Medications: Cefpodoxime Proxetil 100 mg PO BID #14 tablet 05/01/21 Cyclobenzaprine [Flexeril*] 10 mg PO TID 05/01/21 Famotidine 40 mg PO DAILY 05/01/21 Furosemide [Lasix*] 20 mg PO DAILY 05/01/21 Hydrocodone Bit/Acetaminophen [Hydrocodon-Acetaminophn 10-325] 1 tab PO Q6H PRN 05/01/21 Insulin Detemir [Levemir] 60 units SQ DAILY 05/01/21 Ipratropium/Albuterol Sulfate [Iprat-Albut 0.5-3(2.5) mg/3 ml] 3 ml NEB QID 05/01/21 Iron/FA/Vit B-Com W/C [Hemocyte Plus*] 1 tab PO BEDTIME 05/01/21 Levothyroxine [Synthroid*] 0.05 mg PO DAILY 05/01/21 Magnesium [Magnesium Gluconate] 500 mg PO BEDTIME 05/01/21 Metformin HCl 500 mg PO BID 05/01/21 PARoxetine HCL [Paroxetine HCl] 40 mg PO DAILY 05/01/21 Potassium Gluconate [Potassium] 595 mg PO 05/01/21 Pregabalin 300 mg PO BID 05/01/21 Quetiapine [Seroquel*] 50 mg PO BEDTIME 05/01/21 Spironolactone 25 mg PO DAILY 05/01/21 ondansetron HCL [Ondansetron HCl] 8 mg PO Q8H PRN 05/01/21 Dulaglutide [Trulicity] 05/02/21 predniSONE [Deltasone*] 10 mg PO BID #14 tab 05/03/21 New Medications: predniSONE [Deltasone*] 10 mg PO BID #14 tab Diet: ADA Activity: Ad melia Followup: Lynette Luna MD [Primary Care Provider] - Time spent managing pt's care (in minutes): 34
[2021-05-03] MEDS ORDERED: INSULIN GLARGINE 100 UNITS/ML SQ ONE (12:26)
[2021-05-03] MEDS: ONDANSETRON 4 MG/2 ML VIAL IV PRN (13:07)
[2021-05-03] MEDS ORDERED: ONDANSETRON 4 MG/2 ML VIAL ONE (13:22)
[2021-05-03 13:30] VITALS: TEMP 97.5
[2021-05-03 13:33] VITALS: BP 124/70
--- OUTSIDE RECORDS SUMMARY | 2021-06-05 07:20 | XMS REPORT | Continuity of Care Document ---
:1960 Author Organization [facility] t Address [address] [place] [address] Care Team Providers Name Role Phone Andrea ORTIZ Attending Clinician Unavailable PATRICK Attending Clinician Unavailable YUMIKO Attending Clinician Unavailable YUMIKO Admitting Clinician Unavailable Payers Payer Name Policy Type Policy Number Effective Date Expiration Date S ource [facility] [id number] 2019 00:00:00 [employer] II [id number] 2016 00:00:00 2019 00:00 :00 Problems This patient has no known problems. Allergies, Adverse Reactions, Alerts Allergy Allergy Status Severity Reaction(s) Onset Inactive Treating Comm ents Source Name Type Date Date Clinician CIPROFLO DRUG Active Other-Cmnt [facility] ers XACIN INGREDI 8-14 ity of HCL 00:00: [place] [facility] TIOTROPI DRUG Active Med Other-Cmnt Univ ers UM INGREDI 7-31 ity of BROMIDE 00:00: [address] LEVOFLOX DRUG Active N/V Univers ACIN INGREDI 626 ity of 00:00: [place] [facility] METHOCAR DRUG Active Hives Univers BAMOL INGREDI 6-26 ity of 00:00: [place] [facility] SULFA Drug Active Anaphylaxis Unive rs (SULFONA Class 1-04 ity of MIDE 00:00: [place] ANTIBIOT 00 Medical ICS) Branch Medications This patient has no known medications. Procedures This patient has no known procedures. Encounters Start End Encounter Admission Attending Care Care Encounter Source Date/Time Date/Time Type Type Clinicians Facility Department ID 2021-02-19 2021-02-19 Outpatient Andrea ORTIZ [facility] [id number] Univers 14:00:00 14:00:00 CAMILA [id number] ity of [facility] 2021-02-19 2021-02-19 Outpatient Andrea ORTIZ [facility] [id number] Univers 00:00:00 00:00:00 CAMILA [facility] 2020-12-17 2020-12-17 Outpatient Andrea NGUYEN [facility] [id number] Univers 11:30:00 11:30:00 GAB [id number] [facility] 2020-02-01 2020-02-01 [facility] [id number] Univers 00:00:00 00:00:00 CAMILA [id number] [facility] 2020-02-01 2020-02-01 [facility] [id number] Univers 00:00:00 00:00:00 CAMILA [facility] 2019-08-04 2019-08-04 [facility] [id number] Univers 17:13:44 23:59:00 JUNE [facility] Results This patient has no known results.
== END 2021-05-03 13:37 | disposition home or self-care (01) | DRG 190 ==
LOC: ER 22:17 → OBSVTOIN 05-02 03:06 → ERHOLD 05-02 03:06 → INTOOBSV 05-02 03:06 → OBSVTOIN 05-03 10:29
PROVIDERS: ADMIT Internal Medicine; ATTEND Internal Medicine
DX: J44.0 Chronic obstructive pulmonary disease with (acute) lower respiratory infection (principal); J96.22 Acute and chronic respiratory failure with hypercapnia; J18.9 Pneumonia, unspecified organism; N39.0 Urinary tract infection, site not specified; J98.11 Atelectasis; I50.32 Chronic diastolic (congestive) heart failure; J44.1 Chronic obstructive pulmonary disease with (acute) exacerbation; E11.9 Type 2 diabetes mellitus without complications; F17.210 Nicotine dependence, cigarettes, uncomplicated; Z93.0 Tracheostomy status; Z88.2 Allergy status to sulfonamides
CPT/HCPCS: 36415; 71045; 71275; 80048; 80053; 80061; 80076; 82805; 82947; 83605; 83735; 83880; 84100; 84145; 84443; 84484; 85025; 85610; 93005; 93306; 94640; 94760; 96374; 96375; 99285; G0378; J1815; J1940; J2405; J2765; J2920; Q9967

== ENCOUNTER 2022-09-09 22:41 | Inpatient (IN) | payer OTHER ==
--- OUTSIDE RECORDS SUMMARY | 2022-09-09 23:01 | XMS REPORT | Continuity of Care Document ---
:1960 Author Organization [facility] t Address [address] [place] [address] Care Team Providers Name Role Phone Luna, Gab Primary Care Physician JOSLYN RUELAS Attending Clinician Unavailable Joslyn Ruelas DO Attending Clinician Meenakshi SCHAEFER, Alessandra Garcia Attending Clinician COREY GONZALEZ Attending Clinician Unavailable Jonas Hernandez MD Attending Clinician Corey Gonzalez MD Attending Clinician GEN ACEVEDO Attending Clinician Unavailable Gen Acevedo DO Attending Clinician PAULA ROWE Attending Clinician Unavailable Paula Rowe MD Attending Clinician Sanjay HENRY Attending Clinician Unavailable Sanjay Kothari Attending Clinician SUNSHINE PELAEZ Attending Clinician Unavailable Kevin Lebron DO Attending Clinician Sunshine Pelaez MD Attending Clinician [phone] VALERIANO PANTOJA Attending Clinician Unavailable Valeriano Pantoja MD Attending Clinician JONAS HERNANDEZ Attending Clinician Unavailable Layne Guallpa MD Attending Clinician SHAHLA ANDRADE Attending Clinician Unavailable Janis Valencia MD Attending Clinician [phone] Cory Cee MD Attending Clinician DUKE VELAZQUEZ Attending Clinician Unavailable [facility] Attending Clinician Patria Brewer LVN Attending Clinician ENE GIVENS Attending Clinician Unavailable ENE GIVENS Attending Clinician Unavailable Ene Givens MD Attending Clinician Doctor Unassigned, Anton Attending Clinician Unavailable LAYNE GUALLPA Attending Clinician Unavailable APARNA BATES Attending Clinician Unavailable Aparna Bates MD Attending Clinician CAMILA ORTIZ Attending Clinician Unavailable GAB LUNA Attending Clinician Unavailable JUNE CALDERON Attending Clinician Unavailable JONAS HERNANDEZ Admitting Clinician Unavailable Jonas Hernandez MD Admitting Clinician GEN ACEVEDO Admitting Clinician Unavailable PAULA ROWE Admitting Clinician Unavailable Sanjay HENRY Admitting Clinician Unavailable KEVIN LEBRON Admitting Clinician Unavailable VALERIANO PANTOJA Admitting Clinician Unavailable Valeriano Pantoja MD Admitting Clinician JOSLYN RUELAS Admitting Clinician Unavailable CORY CEE Admitting Clinician Unavailable DUKE VELAZQUEZ Admitting Clinician Unavailable ENE GIVENS Admitting Clinician Unavailable Ene Givens MD Admitting Clinician APARNA BATES Admitting Clinician Unavailable GAB LUNA Admitting Clinician Unavailable JUNE CALDERON Admitting Clinician Unavailable Payers Payer Name Policy Type Policy Number Effective Date Expiration Date S anatoly HOLTR FROM [id number] 2020 [facility] 00:00:00 [employer] [id number] 2022 OUT OF NETWORK 00:00:00 [facility] [id number] 2019 00:00:00 Problems Condition Condition Condition Status Onset Resolution Last Treating Co mments Source Name Details Category Date Date Treatment Clinician Date Acute Acute Disease Active Univers respirator respirator 1-11 it y of y distress y distress 00:00: [place] [facility] Chronic Chronic Disease Active [facility] diastolic diastolic 1 ity of congestive congestive 00:[place] heart heart Medical failure failure Branch Hypertensi Hypertensi Disease Active U nivers ve urgency ve urgency 11 it y of 00:00: [place] [facility] Chest pain Chest pain Disease Active U nivers 8 ity of 00:00: [place] [facility] Abdominal Abdominal Disease Active Uni vers pain pain 02-23 ity of 00:00: [place] [facility] Tracheomal Tracheomal Disease Active U nivers acia acia 7 ity of 00:00: [place] [facility] Tracheosto Tracheosto Disease Active U nivers my in my in [address] 00:00: [place] [facility] Dyspnea, Dyspnea, Disease Active Unive rs unspecifie unspecifie 7-29 it y of d type d type 00:00: [place] [facility] Acute Acute Disease Active [facility] respirator respirator 721 it y of y failure y failure 00:[place] with 00 [place] hypoxia hypoxia Branch and and hypercapni hypercapni a a Elevated Elevated Disease Active Unive rs brain brain 7-06 ity of natriureti natriureti 00:[place] c peptide c peptide 00 [facility] michel (BNP) (BNP) Branch level level Anasarca Anasarca Disease Active Unive rs 7-05 ity of 00:00: [place] [facility] Acute Acute Disease Active 2016-07 [facility] respirator respirator 1-09 it y of y failure y failure 00[place]00[place] Respirator Respirator Disease Active U nivers y failure y failure 8-15 ity of with with 00:00: [place] hypercapni hypercapni 00 Me dical a a Branch Morbid Morbid Disease Active Univers obesity obesity 7-14 ity of with body with body 00:00: Katherine tobias mass index mass index 00 Me dical of of Branch 40.0-49.9 40.0-49.9 Morbid Morbid Disease Active Univers obesity obesity 7-14 ity of with body with body 00:00: [place] tobias mass index mass index 00 Me dical of 50 or of 50 or Branch higher higher Hypercapni Hypercapni Disease Active U nivers c c 7-14 ity of respirator respirator 00:[place] failure y failure 00 [facility] Branch Obesity Obesity Disease Active Univers (BMI (BMI 3-17 ity of 30-39.9) 30-39.9) 00:00: [place] [facility] VAP VAP Disease Active Univers (ventilato (ventilato 5-08 it y of r-associat r-associat 00:00: [place] ed ed 00 Medical pneumonia) pneumonia) Br anch Acute Acute Disease Active Univers respirator respirator 5-08 it y of y failure y failure 00:00: Compadwight tobias with with 00 Medical hypercapni hypercapni Br anch a a SOB SOB Disease Active Univers (shortness (shortness 1-10 it y of of breath) of breath) 00:00: [place] 00 [place] Hypoxia Hypoxia Disease Active Univers 9-24 ity of 00:00: [place] [facility] Hypercapni Hypercapni Disease Active U nivers c c 9-01 ity of respirator respirator 00:00: [place] y failure, y failure, 00 Me dical chronic chronic Branch Respirator Respirator Disease Active U nivers y failure y failure 8-16 ity of with with 00:00: [place] hypoxia hypoxia Medical Branch COPD COPD Disease Active Univers exacerbati exacerbati 7-28 it y of on on 00:00: [place] [facility] Respirator Respirator Disease Active U nivers y failure y failure 7-04 ity of with with 00:00: [place] hypoxia hypoxia Medical and and Branch hypercapni hypercapni a a Respirator Respirator Disease Active U nivers y failure y failure 6-09 ity of 00:00: [place] [facility] Hypotensio Hypotensio Disease Active U nivers n n 3-10 ity of 00:00: [place] 00 Medical Branch COPD COPD Disease Active Univers (chronic (chronic 1-04 ity of obstructiv obstructiv 00:00: [place] e e 00 Medical pulmonary pulmonary Bran ch disease) disease) Allergies, Adverse Reactions, Alerts Allergy Allergy Status Severity Reaction(s) Onset Inactive Treating Comm ents Source Name Type Date Date Clinician CODEINE DRUG Active Unknown-Cmnt Uni vers INGREDI 7 ity of 00:00: [place] [facility] TRAMADOL DRUG Active Unknown-Cmnt Un alexia INGREDI 02-16 ity of 00:00: [place] [facility] SERTRALI DRUG Active Unknown-Cmnt Un alexia NE INGREDI 02-16 ity of 00:00: [place] [facility] CEFUROXI DRUG Active Unknown-Cmnt Un alexia ME INGREDI 02-16 ity of AXETIL 00:00: Medical Branch Cefuroxi Propensi Active Unknown - Uni vers me ty to See comments 02-16 ity of Axetil adverse 00:00: [place] reaction 00 Medical s Branch Codeine Propensi Active Unknown - Univ ers ty to See comments 02-16 ity of adverse 00:00: [place] reaction 00 Medical s Branch Tramadol Propensi Active Unknown - Uni vers ty to See comments 02-16 ity of adverse 00:00: [place] reaction 00 Medical s Branch Sertrali Propensi Active Unknown - Uni vers ne ty to See comments 02-16 ity of adverse 00:00: [place] reaction 00 Medical s Branch CIPROFLO DRUG Active Other-Cmnt Univ ers XACIN INGREDI 8 ity of HCL 00:00: [place] [facility] Ciproflo Propensi Active Other - See Mouth U nivers xacin ty to comments 03-08 broke out ity o f Hcl adverse 00:00: in [place] reaction blisters, Medic al s but pt Branch thinks this was to sprite not actual medicatio n TIOTROPI DRUG Active Med Other-Cmnt Univ ers UM INGREDI 7 ity of BROMIDE 00:00: [place] [facility] Tiotropi Propensi Active Other - See Makes U nivers um ty to comments 02-22 chela ity of [place] adverse 00:00: swell [place] reaction 00 Medical s to Branch drug LEVOFLOX DRUG Active N/V Univers ACIN INGREDI 01-18 ity of 00:00: [place] 00 Medical Branch METHOCAR DRUG Active Hives Univers BAMOL INGREDI 01-18 ity of 00:00: [place] 00 Medical Branch Levoflox Propensi Active Nausea Pt unsure Uni vers acin ty to and/or 01-18 if ever ity of adverse Vomiting 00:00: had [place] reaction 00 nausea/vo Medic al s miting to Branch this; thinks she's taken it before w/o problems Methocar Propensi Active Hives Univer s bamol ty to 01-18 ity of adverse 00:00: [place] reaction 00 Medical s Branch SULFA Drug Active Anaphylaxis Unive rs (SULFONA Class 1-04 ity of MIDE 00:00: [place] ANTIBIOT 00 Medical ICS) Branch Sulfa Propensi Active Anaphylaxis Uni vers (Sulfona ty to 1-04 ity of mide adverse 00:00: [place] Antibiot reaction 00 Medica l ics) s Branch Sulfa Propensi Active Anaphylaxis Uni vers (Sulfona ty to 1-04 ity of mide adverse 00:00: [place] Antibiot reaction 00 Medica l ics) s Branch Social History Social Habit Start Date Stop Date Quantity Comments Source History SDNV University o f Alcohol Std Drinks [place] [facility] History [facility] o f Alcohol Binge [place] [facility] al Branch History SDOH Social Unive rsity of [facility] Med ical Together Branch History SDOH Social Unive rsity of [facility] Medical Branch History SDOH Social Unive rsity of [facility] Medical Membership Branch History SDNV Social Unive rsity of [facility] Medical Meetings Branch History of tobacco Cigarette Smoker University of use [place] [facility] Exposure to 2022-08-30 2022-09-09 Not sure University of SARS-CoV-2 (event) 00:00:00 06:38:00 [place] [facility] History SDOH 2022-08-06 2022-08-06 1 University o f Alcohol Frequency 00:00:00 00:00:00 [place] M edical Branch History SDOH Social 2022-08-06 2022-08-06 5 Unive rsity of Connections Phone 00:00:00 00:00:00 [facility] edical Branch History SDOH Social 2022-08-06 2022-08-06 3 Unive rsity of Connections Living 00:00:00 00:00:00 [place] [facility] History SDOH 2022-08-06 2022-08-06 7 University o f Physical Activity 00:00:00 00:00:00 [facility] edical DPW Branch History SDNV 2022-08-06 2022-08-06 1 University o f Physical Activity 00:00:00 00:00:00 [facility] edical MPS Branch History SDNV 2022-08-06 2022-08-06 5 University o f Financial 00:00:00 00:00:00 [place] [facility] History SDOH Food 2022-08-06 2022-08-06 1 Univers ity of Worry 00:00:00 00:00:00 [place] [facility] History SDOH Food 2022-08-06 2022-08-06 1 Univers ity of Scarcity 00:00:00 00:00:00 [place] [facility] History SDNV 2022-08-06 2022-08-06 2 University o f Transport Med 00:00:00 00:00:00 [place] [facility] History SDNV 2022-08-06 2022-08-06 2 University o f Transport Non-Med 00:00:00 00:00:00 [facility] Branch Cigarettes smoked 2022-08-05 2022-08-05 Univers ity of current (pack per 00:00:00 00:00:00 [facility] day) - Reported Branch Cigarette 2022-08-05 2022-08-05 University of pack-years 00:00:00 00:00:00 [facility] Tobacco use and 2022-08-05 2022-08-05 Smokeless Universit y of exposure 00:00:00 00:00:00 tobacco non-user [facility] dical Branch Alcohol intake 2022-08-05 2022-08-05 Current University of 00:00:00 00:00:00 [facility]dr[facility] Branch (finding) Tobacco Comment 2022-02-12 2022-02-12 Pt trached Universit y of 00:00:00 00:00:00 [facility] Sex Ass[birth year] At [birth year] Universit y of 00:00:00 00:00:00 [facility] Smoking Status Start Date Stop Date Source Ex-smoker 2022-08-05 00:00:00 2022-08-05 00:00:00 Universi ty of [facility] Smokes tobacco daily 2022-02-12 00:00:[address] [facility] Medications Ordered Filled Start Stop Current Ordering Indication Dosage Frequency Signature Comments Components Source Medication Medication Date Date Medication? Clinician (SIG) Name Name methylpredn 2022- No 125mg 125 mg, U nivers isolone sod 09-09 Slow IV ity of succ 14:00: 13:20 Push, ONCE [place] (SOLU-MEDRO 00 :00 NOW, 1 Medica l L) dose, On Branch injection Wed 125 mg 09/09/22 at 0800, CT albuterol 2022- No 5mg 5 mg, Univer s (PROVENTIL) 09-09 Inhalation i ty of 2.5 mg /3 14:00: 13:13 , ONCE, 1 [place] mL (0.083 00 :00 dose, On Medica l %) Wed Wanda nebulizer 09/09/22 at solution 5 0800, CT mg predniSONE 2022- Yes [id number] Take 3 Univers 10 mg -17 08-21 06 tablets by ity of tablet 00:00: 05:59 mouth [place] 00 :00 daily for Medical 3 days, Branch THEN 2 tablets daily for 3 days, THEN 1 tablet daily for 3 days. predniSONE 2022- Yes [id number] Take 3 Univers 10 mg -17 08-21 06 tablets by ity of tablet 00:00: 05:59 mouth [place] 00 :00 daily for Medical 3 days, Branch THEN 2 tablets daily for 3 days, THEN 1 tablet daily for 3 days. HYDROcodone Yes 1{tbl} Take 1 Un alexia -acetaminop 1-16 tablet by ity of hen 10-325 17:04: mouth [place] mg tablet 37 every 8 Medical (eight) Branch hours as needed. cyclobenzap Yes 10mg Take 10 mg Univers rine 5 mg 1-16 by mouth 3 ity of tablet 17:04: (three) [place] 37 times Medical daily. Branch LORazepam 0 Yes .5mg Take 0.5 Univ ers 0.5 mg 1-16 mg by ity of tablet 17:04: mouth 2 [place] 37 (two) Medical times Branch daily as needed. ipratropium 2022-0 Yes 1{ampul 1 Ampule Univers -albuterol 1-16 e} every 4 ity of 0.5 mg-3 17:04: (four) [place] mg(2.5 mg 37 hours as Medica l base)/3 mL needed for [facility] nebulizer Wheezing. solution dulaglutide 0 Yes Trulicity U nivers (TRULICITY) 1-16 3 mg/0.5 ity of 3 mg/0.5 mL 17:04: mL [place] PnIj 37 subcutaneo Medical pen Branch injector metFORMIN 2022-0 Yes 750mg Take 750 Uni vers 500 mg 24 1-16 mg by ity of hr tablet 17:04: mouth [place] 37 daily with Medical breakfast. Branch spironolact 0 Yes 25mg Take 25 mg Univers one 25 mg 1-16 by mouth ity of tablet 17:04: in the [place] [address] morning. Medical Branch Levothyroxi 0 Yes 50ug Take 50 Uni vers ne 100 mcg 1-16 mcg by ity of capsule 17:04: mouth. [place] [address] Medical Branch famotidine 0 Yes 40mg Take 40 mg U nivers 40 mg 1-16 by mouth ity of tablet 17:04: in the [place] [address] morning. Medical Branch magnesium 2022-0 Yes 500mg Take 500 Uni vers gluconate 1-16 mg by ity of (MAG-G 17:04: mouth at [place] ORAL) 37 bedtime. Medical Branch montelukast 2022-0 Yes 10mg Take 10 mg Univers 10 mg 1-16 by mouth. ity of tablet 17:04: [place] 37 Medical Branch HYDROcodone 2022-0 Yes 1{tbl} Take 1 Un alexia -acetaminop 1-16 tablet by ity of hen 10-325 17:04: mouth [place] mg tablet 37 every 8 Medical (eight) Branch hours as needed. cyclobenzap 2022-0 Yes 10mg Take 10 mg Univers rine 5 mg 1-16 by mouth 3 ity of tablet 17:04: (three) [place] 37 times Medical daily. Branch LORazepam 0 Yes .5mg Take 0.5 Univ ers 0.5 mg 1-16 mg by ity of tablet 17:04: mouth 2 [place] 37 (two) Medical times Branch daily as needed. ipratropium 2022-0 Yes 1{ampul 1 Ampule Univers -albuterol 1-16 e} every 4 ity of 0.5 mg-3 17:04: (four) [place] mg(2.5 mg 37 hours as Medica l base)/3 mL needed for [facility] nebulizer Wheezing. solution dulaglutide 2022-0 Yes Trulicity U nivers (TRULICITY) 1-16 3 mg/0.5 ity of 3 mg/0.5 mL 17:04: mL [place] PnIj 37 subcutaneo Medical pen Branch injector metFORMIN 2022-0 Yes 750mg Take 750 Uni vers 500 mg 24 1-16 mg by ity of hr tablet 17:04: mouth [place] 37 daily with Medical breakfast. Branch spironolact 0 Yes 25mg Take 25 mg Univers one 25 mg 1-16 by mouth ity of tablet 17:04: in the [place] [address] morning. Medical Branch Levothyroxi 2022-0 Yes 50ug Take 50 Uni vers ne 100 mcg 1-16 mcg by ity of capsule 17:04: mouth. [place] [address] Medical Branch famotidine 0 Yes 40mg Take 40 mg U nivers 40 mg 1-16 by mouth ity of tablet 17:04: in the [place] [address] morning. Medical Branch magnesium 2022-0 Yes 500mg Take 500 Uni vers gluconate 1-16 mg by ity of (MAG-G 17:04: mouth at [place] ORAL) 37 bedtime. Medical Branch montelukast 2022-0 Yes 10mg Take 10 mg Univers 10 mg 1-16 by mouth. ity of tablet 17:04: [place] 37 Medical Branch HYDROcodone 2022-0 Yes 1{tbl} Take 1 Un alexia -acetaminop 1-16 tablet by ity of hen 10-325 17:04: mouth [place] mg tablet 37 every 8 Medical (eight) Branch hours as needed. cyclobenzap 2022-0 Yes 10mg Take 10 mg Univers rine 5 mg 1-16 by mouth 3 ity of tablet 17:04: (three) [place] 37 times Medical daily. Branch LORazepam 0 Yes .5mg Take 0.5 Univ ers 0.5 mg 1-16 mg by ity of tablet 17:04: mouth 2 [place] 37 (two) Medical times Branch daily as needed. ipratropium 2022-0 Yes 1{ampul 1 Ampule Univers -albuterol 1-16 e} every 4 ity of 0.5 mg-3 17:04: (four) [place] mg(2.5 mg 37 hours as Medica l base)/3 mL needed for [facility] nebulizer Wheezing. solution dulaglutide 0 Yes Trulicity U nivers (TRULICITY) 1-16 3 mg/0.5 ity of 3 mg/0.5 mL 17:04: mL [place] Pn 37 subcutaneo Medical us pen Branch injector metFORMIN 2022-0 Yes 750mg Take 750 Uni vers 500 mg 24 1-16 mg by ity of hr tablet 17:04: mouth [place] [address] daily with Medical breakfast. Branch spironolact 0 Yes 25mg Take 25 mg Univers one 25 mg 1-16 by mouth ity of tablet 17:04: in the [place] [address] morning. Medical Branch Levothyroxi 0 Yes 50ug Take 50 Uni vers ne 100 mcg 1-16 mcg by ity of capsule 17:04: mouth. [place] [address] Medical Branch famotidine 0 Yes 40mg Take 40 mg U nivers 40 mg 1-16 by mouth ity of tablet 17:04: in the [place] [address] morning. Medical Branch magnesium 2022-0 Yes 500mg Take 500 Uni vers gluconate 1-16 mg by ity of (MAG-G 17:04: mouth at [place] ORAL) 37 bedtime. Medical Branch montelukast 0 Yes 10mg Take 10 mg Univers 10 mg 1-16 by mouth. ity of tablet 17:04: [place] [address] Medical Branch ondansetron 2022-0 2022- No 8mg Take 8 mg Univers 8 mg 1-16 01-16 by mouth ity of disintegrat 15:21: 00:00 every 8 [place] ing tablet 55 :00 (eight) Medica l hours as Branch needed for Nausea and Vomiting (N/V). ondansetron 2023-0 202- No 8mg Take 8 mg Univers (ZOFRAN) 8 1-16 01-16 by mouth ity of mg tablet 15:21: 00:00 every 8 [place] 55 :00 (eight) Medical hours as Branch needed. predniSONE 2022-0 Yes 30mg 30 mg, Unive rs (DELTASONE) 1-16 Oral, ity of tablet 30 14:45: DAILY, [place] mg 00 First dose Medical (after last modificati on) on Wed08/10/22 at 0845, Until Discontinu ed, Routine ondansetron 2022-0 Yes 4mg 4 mg, Slow Univers (ZOFRAN 1-16 IV Push, ity of (PF)) 06:08: Q6HPRN, [place] injection 4 12 Starting Medi michel mg on Wed08/10/22 at 0008, Until Discontinu ed, Routine, Nausea and Vomiting (N/V) hydrOXYzine 2022-0 Yes [id number] 10mg Take 1 Univers 10 mg 1-16 06 tablet by ity of tablet 00:00: mouth [place] 00 every 8 Medical (eight) Branch hours as needed for Anxiety. pregabalin 2022-0 Yes [id number] 300mg Take 1 Univers 300 mg 1-16 06 capsule by ity of capsule 00:00: mouth in [place] the Medical morning Branch and 1 capsule in the evening. hydrOXYzine 3-0 Yes [id number] 10mg Take 1 Univers 10 mg 1-16 06 tablet by ity of tablet 00:00: mouth [place] 00 every 8 Medical (eight) Branch hours as needed for Anxiety. pregabalin 3-0 Yes [id number] 300mg Take 1 Univers 300 mg 1-16 06 capsule by ity of capsule 00:00: mouth in [place] 00 the Medical morning Branch and 1 capsule in the evening. hydrOXYzine 2023-0 Yes [id number] 10mg Take 1 Univers 10 mg 1-16 06 tablet by ity of tablet 00:00: mouth [place] 00 every 8 Medical (eight) Branch hours as needed for Anxiety. pregabalin 2023-0 Yes [id number] 300mg Take 1 Univers 300 mg 1-16 06 capsule by ity of capsule 00:00: mouth in [place] the Medical morning Branch and 1 capsule in the evening. furosemide 3-0 2023- No 20mg 20 mg, Univ ers (LASIX) 08-09 Slow IV ity of injection 14:45: 14:07 Push, [place] 20 mg 00 :00 ONCE, 1 Medical dose, On Branch 08/09/22 at 0845, Routine PARoxetine Yes 40mg 40 mg, Unive rs (PAXIL) 08-08 Oral, ity of tablet 40 16:45: DAILY, [place] mg 00 First dose Medical (after Branch last modificati on) on 08/08/22 at 1045, Until Discontinu ed, Routine sulfur 2022- No [id number] 5mL 5 mL, Unive rs hexafluorid 08-07 Intravenou i ty of e microsphr 17:00: 17:00 s, ONCE, 1 [place] (LUMASON) 00 :00 dose, On Medica l injection 5 Fri Branch mL 08/07/22 at 1100, Routine
nutrition faculty member approving Restricted medication : STELLA IVORY pantoprazol Yes 40mg 40 mg, Univ ers e 08-07 Oral, ity of (PROTONIX) 15:00: DAILY, [place] EC tablet 00 First dose Medi michel 40 mg on Fri Branch 08/07/22 at 0900, Until Discontinu ed, Routine predniSONE 2022- No 50mg 50 mg, Univ ers (DELTASONE) 08-07 Oral, ity of tablet 50 15:00: 14:34 DAILY, [place] mg 00 :51 First dose Medical on Fri Branch 08/07/22 at 0900, Until Discontinu ed, Routine NaCl 0.9% No 500mL at 100 Univ ers (NS) bolus 08-07 mL/hr, 500 it y of infusion 09:00: 08:13 mL, IV [place] 500 mL 00 :32 Infusion, Medical ONCE, 1 Branch dose, On 08/07/22 at 0300, STAT midodrine No 5mg 5 mg, Univer s (PROAMATINE 08-07 Oral, ity of ) tablet 5 06:30: 05:50 ONCE, 1 [place] mg 00 :00 dose, On Medical Fri Branch 08/07/22 at 0030, Routine midodrine 2022- No 5mg 5 mg, Univer s (PROAMATINE 08-07 Oral, TID, i ty of ) tablet 5 02:00: 17:05 First dose [place] mg 00 :51 (after Medical last Branch modificati on) on [facility] 08/06/22 at 2000, Until Discontinu ed, CT NaCl 0.9% 2022- No 500mL at 999 Univ ers (NS) bolus 08-0612 mL/hr, 500 it y of infusion 21:15: 21:36 mL, IV [place] 500 mL 00 :48 Piggyback, Medical ONCE, 1 Branch dose, On [facility] 08/06/22 at 1515, STAT midodrine 2022- No 10mg 10 mg, Unive rs (PROAMATINE 08-06 Oral, TID, i ty of ) tablet 10 20:15: 23:07 First dose [place] mg 00 :59 (after Medical last Branch reorder) on [facility] 08/06/22 at 1415, Until Discontinu ed, CT iopamidol 2022- No [id number] 90mL 90 mL, Univers (ISOVUE 08-06 Intravenou ity o f 370-500 mL) 16:45: 17:00 s, ONCE, 1 [place] injection 00 :00 dose, On Medica l 90 mL [facility] Branch 08/06/22 at 1100, Routine insulin Yes 25U 25 Units, Unive rs glargine 08-06 Subcutaneo ity o f (LANTUS 15:00: [place], DAILY, [place] U-100) 00 First dose Medical injection on Anayeli Branch 25 Units 08/06/22 at 0900, Until Discontinu ed, Routine NaCl 0.9% 2022- No 500mL at 999 Univ ers (NS) bolus 08-06 mL/hr, 500 it y of infusion 14:00: 13:40 mL, IV [place] 500 mL 00 :02 Piggyback, Medical ONCE, 1 Branch dose, On [facility] 08/06/22 at 0800, STAT midodrine 2022- No 10mg 10 mg, Unive rs (PROAMATINE 1-12 01-12 Oral, ity of ) tablet 10 14:00: 13:28 ONCE, 1 [place] mg 00 :00 dose, On Medical Anayeli Branch 08/06/22 at 0800, CT insulin 2022-0 2022- No 15U 15 Units, Univ ers glargine 08-0612 Subcutaneo ity of (LANTUS 05:30: 07:08 us, ONCE, [place] U-100) 00 :00 1 dose, On Medical injection Wed Branch 15 Units 08/05/22 at 2330, CT pregabalin 0 Yes 300mg 300 mg, Uni vers (LYRICA) 12 Oral, BID, ity o f capsule 300 04:45: First dose [place] mg 00 on Wed Medical 08/05/22 at Branch 2245, Until Discontinu ed, Routine QUEtiapine 0 Yes 75mg 75 mg, Unive rs (SEROQUEL) 12 Oral, QHS, ity of tablet 75 04:45: First dose [place] mg 00 on Wed Medical 08/05/22 at Branch 2245, Until Discontinu ed, Routine acetaminoph 0 Yes 1000mg 1,000 mg, Univers en 08-06 Oral, ity of (TYLENOL) 04:40: BIDPRN, [place] tablet 20 Starting Medical 1,000 mg on [facility] Branch 08/05/22 at 2240, Until Discontinu ed, Routine, Pain (scale 1-3) ceFEPIme 2022-0 2022- Yes 1000mg 1,000 mg, U nivers (MAXIPIME) 08-05 IV ity of 1,000 mg in 22:00: 21:59 Piggyback, [place] NaCl 0.9% 00 :00 Q8H ABX, Medica l (NS) 50 mL 21 doses, Bran ch MINI-BAG First dose on Wed08/05/22 at 1600, Last dose on Wed08/12/22 at 0800, Administer over 4 Hours, 50 mL
Reas on for Anti-Infec tive: Empiric Therapy for Suspected Infection< br>Empiric Therapy Site: Respirator y
Durat ion of therapy: 5 days NaCl 0.9% 0 2022- No 1000mL at 100 Uni vers (NS) IV 08-05 mL/hr, IV ity of infusion 16:30: 01:11 Infusion, Compa as 1,000 mL 00 :25 CONTINUOUS Medic al , Starting Branch on Wed08/05/22 at 1030, Until Anayeli 08/06/22 at 1911, Routine furosemide 2022-0 2022- No 20mg 20 mg, Univ ers (LASIX) 08-05 Slow IV ity of injection 15:45: 13:07 Push, [place] 20 mg 00 :38 DAILY, Medical First dose Branch on Wed08/05/22 at 0945, Until Discontinu ed, Routine Sliding 2022-0 Yes Subcutaneo Univ ers Scale -11 us, Q4H, ity of Insulin - 15:30: First dose [place] Lispro 00 (after Medical (HumaLOG) + last Branch Fsbg modificati Testing on) on Wed08/05/22 at 0930, Until Discontinu ed, Routine enoxaparin 0 Yes 40mg 40 mg, Unive rs (LOVENOX) 08-05 Subcutaneo ity of injection 14:00: us, Q12H, Compa as 40 mg 00 First dose Medical on Wed Branch 08/05/22 at 0800, Until Discontinu ed, Routine levothyroxi Yes 50ug 50 mcg, Uni vers ne 08-05 Oral, ity of (SYNTHROID) 12:00: QAM-0600, [place] tablet 50 00 First dose Medi michel mcg on Wed Branch 08/05/22 at 0600, Until Discontinu ed LORazepam 0 2022- No 1mg 1 mg, Slow U nivers (ATIVAN) 08-05 IV Push, ity of injection 1 08:15: 08:13 ONCE, 1 [place] mg 00 :00 dose, On Medical Wed Branch 08/05/22 at 0215, Routine cyclobenzap Yes 10mg 10 mg, Univ ers rine 08-05 Oral, TID, ity of (FLEXERIL) 07:45: First dose [place] tablet 10 00 on Wed Medical mg 08/05/22 at Branch 0145, Until Discontinu ed, Routine pantoprazol 2022-0 2022- No 40mg 40 mg, Uni vers e 08-05 Slow IV ity of (PROTONIX) 07:45: 15:39 Push, [place] injection 00 :23 Q24H, Medical 40 mg First dose Branch on Wed08/05/22 at 0145, Until Discontinu ed metoprolol 0 2022- No 25mg 25 mg, Univ ers succinate 08-05 Oral, ity of XL (TOPROL 07:45: 15:43 DAILY, [place] XL) tablet 00 :08 First dose Med ical 25 mg on Wed Branch 08/05/22 at 0145, Until Discontinu ed, Routine aspirin 2022- No 81mg 81 mg, Univers chewable 08-05 Oral, QAM ity o f tablet 81 07:45: 15:43 WITH [place] mg 00 :08 BREAKFAST, Medical First dose Branch on Wed08/05/22 at 0145, Until Discontinu ed, Routine morpHINE (2 Yes 2mg 2 mg, Slow Univers mg/mL) 08-05 IV Push, ity of injection 2 07:41: Q4HPRN, [place] mg 02 Starting Medical on Wed Branch 08/05/22 at 0141, Until Discontinu ed, Routine, Pain (scale 7-10) HYDROcodone 2022-0 Yes 1{tbl} 1 tablet, Univers -acetaminop 08-05 Oral, ity of hen (NORCO) 07:38: Q8HPRN, [place] as 10-325 mg 17 Starting Medica l tablet 1 on Wed Branch tablet 08/05/22 at 0138, Until Discontinu ed, Routine, Pain (scale 4-6) LORazepam 0 Yes .5mg 0.5 mg, Unive rs (ATIVAN) 08-05 Slow IV ity of injection 07:35: Push, [place] 0.5 mg 04 TIDPRN, Medical Starting Branch on Wed08/05/22 at 0135, Until Discontinu ed, Routine, Anxiety budesonide 0 Yes .5mg 0.5 mg, Univ ers (PULMICORT 08-05 Inhalation ity of RESPULE) 07:30: , BID, [place] nebulizer 00 First dose Medi michel solution on Wed Branch 0.5 mg 08/05/22 at 0130, Until Discontinu ed, Routine ipratropium 0 Yes 3mL 3 mL, Unive rs -albuteroL 08-05 Inhalation ity of (DUONEB) 07:30: , Q4H, [place] 0.5 mg-3 00 First dose Medic al mg(2.5 mg on Wed Branch base)/3 mL 08/05/22 at nebulizer 0130, solution 3 Until mL Discontinu ed, Routine methylPREDN 2022- No 40mg 40 mg, Uni vers ISolone sod 08-05 01-12 Intravenou i ty of succ 07:30: 15:21 s, Q8H, [place] (SOLU-MEDRO 00 :13 First dose Me dical L (PF)) on Wed Branch injection 08/05/22 at 40 mg 0130, Until Discontinu ed, 1 mL glucagon Yes 1mg 1 mg, Univers (GLUCAGEN 08-05 Intramuscu ity of DIAGNOSTIC 07:27: lar, PRN, [place] KIT) 58 Starting Medical injection 1 on Wed Branch mg 08/05/22 at 0127, Until Discontinu ed, CT, Blood Glucose < or = 70 mg/dL and patient is unable to swallow or has mental changes. dextrose 50 Yes 25mL 25 mL, Univ ers % in water 08-05 Slow IV ity of (D50W) 07:27: Push, PRN, [place] injection 58 Starting Medica l 25 mL on Wed Branch 08/05/22 at 0127, Until Discontinu ed, CT, Blood Glucose < or = 70 mg/dL and patient is unable to swallow or has mental status changes. methylpredn 2021-07 Yes 125mg 125 mg, Un alexia isolone sod 08-05 Intravenou it y of succ 06:00: s, Q6H, [place] (SOLU-MEDRO 00 First dose Me dical L) on Wed Branch injection 06/05/22 125 mg at 0000, Until Discontinu ed, Routine iopamidol 2021-07- No [id number] 75mL 75 mL, Univers (ISOVUE 019 05-13 Intravenou ity o f 370-500 mL) 07:00: 07:00 s, ONCE, 1 [place] injection 00 :00 dose, On Medica l 75 mL Wed Branch 05/13/22 at 0200, Routine HYDROcodone 2021-07- No 1{tbl} 1 tablet, Univers -acetaminop 0-08 10-08 Oral, ity of hen (NORCO) 07:15: 06:30 ONCE, 1 [place] 10-325 mg 00 :00 dose, On Medica l tablet 1 Sat Branch tablet 05/02/22 at 0215, Routine piperacilli 2021-07- No 3.375g 3.375 g, Univers n-tazobacta 0-05 10-05 IV ity of m (ZOSYN) 04:30: 05:26 Piggyback, [place] 3.375 g in 00 :00 ONCE, 1 Medica l NaCl 0.9% dose, On Branch (NS) 50 mL Tue MINI-BAG 04/28/22 at 2330, Administer over 30 Minutes, 50 mL
R [place] for Anti-Infec tive: Documented Infection< br>Documen alden Infection Site: Respirator y
Du ration of Therapy: Other (see Comments) ondansetron 2021-07- No 4mg 4 mg, Slow Univers (ZOFRAN 0-05 10-05 IV Push, ity of (PF)) 04:15: 03:12 ONCE, 1 [place] injection 4 00 :00 dose, On Medi michel mg Tue Branch 04/28/22 at 2315, CT FENTanyl PF 2021-07- No 50ug 50 mcg, Un alexia (SUBLIMAZE 0-05 10-05 Slow IV ity o f (PF)) 04:15: 03:13 Push, [place] injection 00 :00 ONCE, 1 Medical 50 mcg dose, On Branch 04/28/22 at 2315, STAT amoxicillin 2021-07 Yes [id number] 500mg Take 1 Univers -pot 0-05 tablet by ity of clavulanate 00:00: mouth [place] 500 mg 00 every 12 Medical 500-125 mg (twelve) Branc h tablet hours. amoxicillin 2021-07 Yes [id number] 500mg Take 1 Univers -pot 0-05 tablet by ity of clavulanate 00:00: mouth [place] 500 mg 00 every 12 Medical 500-125 mg (twelve) Branc h tablet hours. amoxicillin 2021-07 Yes [id number] 500mg Take 1 Univers -pot 0-05 tablet by ity of clavulanate 00:00: mouth [place] 500 mg 00 every 12 Medical 500-125 mg (twelve) Branc h tablet hours. amoxicillin 2021-07 Yes [id number] 500mg Take 1 Univers -pot 0-05 tablet by ity of clavulanate 00:00: mouth [place] 500 mg 00 every 12 Medical 500-125 mg (twelve) Branc h tablet hours. amoxicillin 2021-07- No [id number] 500mg Take 1 Univers -pot 0-05 01-16 tablet by ity of clavulanate 00:00: 00:00 mouth [place] 500 mg 00 :00 every 12 Medical 500-125 mg (twelve) Branc h tablet hours. LORazepam 2021- No .5mg 0.5 mg, Univ ers (ATIVAN) 8-05 08-05 Oral, ity of tablet 0.5 23:15: 22:25 ONCE, 1 [place] mg 00 :00 dose, On Medical 02/27/22 Branch at 1815, Routine HYDROcodone Yes 1{tbl} Take 1 Un alexia -acetaminop 8-05 tablet by ity of hen 10-325 17:58: mouth [place] mg tablet 14 every 8 Medical (eight) Branch hours as needed. cyclobenzap Yes 10mg Take 10 mg Univers rine 5 mg 8-05 by mouth 3 ity of tablet 17:58: (three) [place] 14 times Medical daily. Branch LORazepam Yes .5mg Take 0.5 Univ ers 0.5 mg 8-05 mg by ity of tablet 17:58: mouth 2 [place] 14 (two) Medical times Branch daily as needed. ipratropium Yes 1{ampul 1 Ampule Univers -albuterol 8-05 e} every 4 ity of 0.5 mg-3 17:58: (four) [place] mg(2.5 mg 14 hours as Medica l base)/3 mL needed for [facility] nebulizer Wheezing. solution dulaglutide Yes Trulicity U nivers (TRULICITY) 8-05 3 mg/0.5 ity of 3 mg/0.5 mL 17:58: mL [place] PnIj 14 subcutaneo Medical us pen Branch injector metFORMIN 0 Yes 750mg Take 750 Uni vers 500 mg 24 8-05 mg by ity of hr tablet 17:58: mouth [place] 14 daily with Medical breakfast. Branch spironolact Yes 25mg Take 25 mg Univers one 25 mg 8-05 by mouth ity of tablet 17:58: in the [place] 14 morning. Medical Branch ondansetron 0 Yes 8mg Take 8 mg U nivers 8 mg 8-05 by mouth ity of disintegrat 17:58: every 8 Compa as ing tablet 14 (eight) Medica l hours as Branch needed for Nausea and Vomiting (N/V). Levothyroxi Yes 50ug Take 50 Uni vers ne 100 mcg 8-05 mcg by ity of capsule 17:58: mouth. [place] 14 Medical Branch HYDROcodone 0 Yes 1{tbl} Take 1 Un alexia -acetaminop 8-05 tablet by ity of hen 10-325 17:58: mouth [place] mg tablet 14 every 8 Medical (eight) Branch hours as needed. cyclobenzap 0 Yes 10mg Take 10 mg Univers rine 5 mg 8-05 by mouth 3 ity of tablet 17:58: (three) [place] 14 times Medical daily. Branch LORazepam Yes .5mg Take 0.5 Univ ers 0.5 mg 8-05 mg by ity of tablet 17:58: mouth 2 [place] 14 (two) Medical times Branch daily as needed. ipratropium Yes 1{ampul 1 Ampule Univers -albuterol 8-05 e} every 4 ity of 0.5 mg-3 17:58: (four) [place] mg(2.5 mg 14 hours as Medica l base)/3 mL needed for [facility] nebulizer Wheezing. solution dulaglutide Yes Trulicity U nivers (TRULICITY) 8-05 3 mg/0.5 ity of 3 mg/0.5 mL 17:58: mL [place] [facility] Branch injector metFORMIN 0 Yes 750mg Take 750 Uni vers 500 mg 24 8-05 mg by ity of hr tablet 17:58: mouth [place] 14 daily with Medical breakfast. Branch spironolact Yes 25mg Take 25 mg Univers one 25 mg 8-05 by mouth ity of tablet 17:58: in the [place] 14 morning. Medical Branch ondansetron Yes 8mg Take 8 mg U nivers 8 mg 8-05 by mouth ity of disintegrat 17:58: every 8 Compa as ing tablet 14 (eight) Medica l hours as Branch needed for Nausea and Vomiting (N/V). Levothyroxi Yes 50ug Take 50 Uni vers ne 100 mcg 8-05 mcg by ity of capsule 17:58: mouth. [place] 14 Medical Branch HYDROcodone Yes 1{tbl} Take 1 Un alexia -acetaminop 8-05 tablet by ity of hen 10-325 17:58: mouth [place] mg tablet 14 every 8 Medical (eight) Branch hours as needed. cyclobenzap Yes 10mg Take 10 mg Univers rine 5 mg 8-05 by mouth 3 ity of tablet 17:58: (three) [place] 14 times Medical daily. Branch LORazepam Yes .5mg Take 0.5 Univ ers 0.5 mg 8-05 mg by ity of tablet 17:58: mouth 2 [place] 14 (two) Medical times Branch daily as needed. ipratropium Yes 1{ampul 1 Ampule Univers -albuterol 8-05 e} every 4 ity of 0.5 mg-3 17:58: (four) [place] mg(2.5 mg 14 hours as Medica l base)/3 mL needed for [facility] nebulizer Wheezing. solution dulaglutide Yes Trulicity U nivers (TRULICITY) 8-05 3 mg/0.5 ity of 3 mg/0.5 mL 17:58: mL [place] PnIj 14 subcutaneo Medical pen Branch injector metFORMIN 0 Yes 750mg Take 750 Uni vers 500 mg 24 8-05 mg by ity of hr tablet 17:58: mouth [place] 14 daily with Medical breakfast. Branch spironolact Yes 25mg Take 25 mg Univers one 25 mg 8-05 by mouth ity of tablet 17:58: in the [place] 14 morning. Medical Branch ondansetron Yes 8mg Take 8 mg U nivers 8 mg 8-05 by mouth ity of disintegrat 17:58: every 8 Compa as ing tablet 14 (eight) Medica l hours as Branch needed for Nausea and Vomiting (N/V). Levothyroxi Yes 50ug Take 50 Uni vers ne 100 mcg 8-05 mcg by ity of capsule 17:58: mouth. [place] 14 Medical Branch HYDROcodone Yes 1{tbl} Take 1 Un alexia -acetaminop 8-05 tablet by ity of hen 10-325 17:58: mouth [place] mg tablet 14 every 8 Medical (eight) Branch hours as needed. cyclobenzap Yes 10mg Take 10 mg Univers rine 5 mg 8-05 by mouth 3 ity of tablet 17:58: (three) [place] 14 times Medical daily. Branch LORazepam Yes .5mg Take 0.5 Univ ers 0.5 mg 8-05 mg by ity of tablet 17:58: mouth 2 [place] 14 (two) Medical times Branch daily as needed. ipratropium Yes 1{ampul 1 Ampule Univers -albuterol 8-05 e} every 4 ity of 0.5 mg-3 17:58: (four) [place] mg(2.5 mg 14 hours as Medica l base)/3 mL needed for [facility] nebulizer Wheezing. solution dulaglutide Yes Trulicity U nivers (TRULICITY) 8-05 3 mg/0.5 ity of 3 mg/0.5 mL 17:58: mL [place] PnIj 14 [facility] pen Branch injector metFORMIN Yes 750mg Take 750 Uni vers 500 mg 24 8-05 mg by ity of hr tablet 17:58: mouth [place] 14 daily with Medical breakfast. Branch spironolact Yes 25mg Take 25 mg Univers one 25 mg 8-05 by mouth ity of tablet 17:58: in the [place] 14 morning. Medical Branch ondansetron Yes 8mg Take 8 mg U nivers 8 mg 8-05 by mouth ity of disintegrat 17:58: every 8 Compa as ing tablet 14 (eight) Medica l hours as Branch needed for Nausea and Vomiting (N/V). Levothyroxi Yes 50ug Take 50 Uni vers ne 100 mcg 8-05 mcg by ity of capsule 17:58: mouth. Medical Branch HYDROcodone 0 Yes 1{tbl} Take 1 Un aleixa -acetaminop 8-05 tablet by ity of hen 10-325 17:58: mouth [place] mg tablet 14 every 8 Medical (eight) Branch hours as needed. cyclobenzap 0 Yes 10mg Take 10 mg Univers rine 5 mg 8-05 by mouth 3 ity of tablet 17:58: (three) [place] 14 times Medical daily. Branch LORazepam 0 Yes .5mg Take 0.5 Univ ers 0.5 mg 8-05 mg by ity of tablet 17:58: mouth 2 [place] 14 (two) Medical times Branch daily as needed. ipratropium 0 Yes 1{ampul 1 Ampule Univers -albuterol 8-05 e} every 4 ity of 0.5 mg-3 17:58: (four) [place] mg(2.5 mg 14 hours as Medica l base)/3 mL needed for [facility] nebulizer Wheezing. solution dulaglutide Yes Trulicity U nivers (TRULICITY) 8-05 3 mg/0.5 ity of 3 mg/0.5 mL 17:58: mL [place] PnIj 14 subcutaneo Medical pen Branch injector metFORMIN 0 Yes 750mg Take 750 Uni vers 500 mg 24 8-05 mg by ity of hr tablet 17:58: mouth [place] 14 daily with Medical breakfast. Branch spironolact 0 Yes 25mg Take 25 mg Univers one 25 mg 8-05 by mouth ity of tablet 17:58: in the 14 morning. Medical Branch ondansetron 0 Yes 8mg Take 8 mg U nivers 8 mg 8-05 by mouth ity of disintegrat 17:58: every 8 Compa as ing tablet 14 (eight) Medica l hours as Branch needed for Nausea and Vomiting (N/V). Levothyroxi Yes 50ug Take 50 Uni vers ne 100 mcg 8-05 mcg by ity of capsule 17:58: mouth. [place] 14 Medical Branch HYDROcodone 0 Yes 1{tbl} Take 1 Un alexia -acetaminop 8-05 tablet by ity of hen 10-325 17:58: mouth [place] mg tablet 14 every 8 Medical (eight) Branch hours as needed. cyclobenzap 0 Yes 10mg Take 10 mg Univers rine 5 mg 8-05 by mouth 3 ity of tablet 17:58: (three) [place] 14 times Medical daily. Branch LORazepam 0 Yes .5mg Take 0.5 Univ ers 0.5 mg 8-05 mg by ity of tablet 17:58: mouth 2 [place] 14 (two) Medical times Branch daily as needed. ipratropium 0 Yes 1{ampul 1 Ampule Univers -albuterol 8-05 e} every 4 ity of 0.5 mg-3 17:58: (four) [place] mg(2.5 mg 14 hours as Medica l base)/3 mL needed for [facility] nebulizer Wheezing. solution dulaglutide Yes Trulicity U nivers (TRULICITY) 8-05 3 mg/0.5 ity of 3 mg/0.5 mL 17:58: mL [place] PnIj 14 subcutane Medical pen Branch injector metFORMIN 0 Yes 750mg Take 750 Uni vers 500 mg 24 8-05 mg by ity of hr tablet 17:58: mouth [place] 14 daily with Medical breakfast. Branch spironolact 0 Yes 25mg Take 25 mg Univers one 25 mg 8-05 by mouth ity of tablet 17:58: in the [place] 14 morning. Medical Branch ondansetron 0 Yes 8mg Take 8 mg U nivers 8 mg 8-05 by mouth ity of disintegrat 17:58: every 8 Compa as ing tablet 14 (eight) Medica l hours as Branch needed for Nausea and Vomiting (N/V). Levothyroxi Yes 50ug Take 50 Uni vers ne 100 mcg 8-05 mcg by ity of capsule 17:58: mouth. [place] 14 Medical Branch semaglutide 0 2021- No inject Uni vers (OZEMPIC) 8-05 08-05 under the ity of 0.25 mg or 15:36: 00:00 skin. [place] 0.5 mg(2 41 :00 Medical mg/1.5 mL) Branch PnIj famotidine 0 2021- No 40mg Take 40 mg Univers 40 mg 8-05 08-05 by mouth ity of tablet 15:36: 00:00 in the [place] 41 :00 morning. Medical Branch melatonin Yes 6mg 6 mg, Univers (MELATIN) 02-26 Oral, QPM, ity of tablet 6 mg 22:00: First dose [place] 00 (after Medical last Branch reorder) on [place]ayeli 02/26/22 at 1700, Until Discontinu ed, Routine pantoprazol Yes 40mg 40 mg, Univ ers e 02-26 Slow IV ity of (PROTONIX) 01:15: Push, [place] injection 00 Q24H, Medical 40 mg First dose Branch (after last modificati on) on Wed02/25/22 at 2015, Until Discontinu ed magnesium 2021- No 2g 2 g, IV Univ ers sulfate in 02-25 Piggyback, it y of water 2 15:15: 15:42 Administer Compa as gram/50 mL 00 :00 over 60 Medica l (4 %) Minutes, Branch infusion 2 ONCE, 1 g dose, On Wed02/25/22 at 1015, Routine lidocaine 2021- No 2{patch 2 Patch, Univers (LIDODERM) 02-25 } Topical, ity of 5 % (700 09:00: 20:01 Administer [place] mg/patch) 00 :00 over 12 Medical patch 2 Hours, Branch Patch ONCE, 1 dose, On Wed02/25/22 at 0400, Routine acetaminoph Yes 650mg 650 mg, Un alexia en 02-25 Oral, ity of (TYLENOL) 08:19: Q6HPRN, [place] tablet 650 00 Starting Medic al mg on Wed Branch 02/25/22 at 0319, Until Discontinu ed, Routine, Pain (scale 1-3) melatonin 0 2021- No 6mg 6 mg, Univer s (MELATIN) 02-25 Oral, ONCE ity of tablet 6 mg 07:53: 08:06 NOW, 1 [place] as 00 :00 dose, On Medical Wed02/25/22 Branch at 0300, Routine gabapentin 2021-0 2021- No 300mg 300 mg, Un alexia (NEURONTIN) 02-25 Oral, ity of capsule 300 06:15: 05:24 ONCE, 1 [place] mg 00 :00 dose, On Medical Wed02/25/22 Branch at 0115, Routine lactated 2021- No 500mL at 999 Unive rs ringers IV 02-25 mL/hr, 500 it y of infusion 05:00: 06:00 mL, [place] 500 mL 00 :00 Intravenou Medical s, ONCE, 1 Branch dose, On Wed02/25/22 at 0000, Routine melatonin No 6mg 6 mg, Univer s (MELATIN) 02-25 Oral, ONCE ity of tablet 6 mg 03:15: 02:44 NOW, 1 [place] as 00 :00 dose, On Medical Wed02/24/22 Branch at 2215, Routine ondansetron 2021- No 4mg 4 mg, Slow Univers (ZOFRAN 02-25 IV Push, ity of (PF)) 03:15: 02:44 ONCE, On [place] injection 4 00 :00 Wed02/24/22 Me dical mg at 2215, Branch For 1 dose
Do ses of ondansetro n 16 mg and above need to be administer ed via IV piggyback. For Dose >=24mg ECG monitoring is advisable.
pantoprazol No 40mg 40 mg, Uni vers e 02-25 Slow IV ity of (PROTONIX) 01:00: 11:51 Push, [place] injection 00 :53 Q12H, Medical 40 mg First dose Branch on Wed02/24/22 at 2000, Until Discontinu ed lactated 2021- No 500mL at 999 Unive rs ringers IV 02-2403 mL/hr, 500 it y of infusion 17:30: 03:57 mL, [place] 500 mL 00 :22 Intravenou Medical s, ONCE, 1 Branch dose, On Wed02/24/22 at 1230, Routine lactated 2021- No 500mL at 999 Unive rs ringers IV 02-2402 mL/hr, 500 it y of infusion 17:30: 18:42 mL, [place] 500 mL 00 :07 Intravenou Medical s, ONCE, 1 Branch dose, On Wed02/24/22 at 1230, Routine polyethylen Yes 17g 17 g, Unive rs e glycol 02-24 Oral, BID, ity o f 3350 powder 13:00: First dose [place] 17 g 00 on Wed Medical 02/24/22 at Wanda 0800, Until Discontinu ed, Routine HYDROcodone Yes 1{tbl} 1 tablet, Univers -acetaminop 02-24 Oral, ity of hen (NORCO 09:45: Q6HPRN, [place] 5) 5-325 mg 00 Starting Medi michel tablet 1 on Wed tablet 02/24/22 at 0445, Until Discontinu ed, Routine, Pain (scale 7-10) ketorolac 2021- No 30mg 30 mg, Unive rs (TORADOL) 02-24 Slow IV ity of injection 09:45: 09:01 Push, [place] 30 mg 00 :00 ONCE, 1 Medical dose, On Wed02/24/22 at 0445, Routine NORepinephr No .05ug/k 0.05-0.5 Univers ine 4 mg in 02-24-03 g/min mcg/kg/min ity of 0.9% NaCl 04:27: 04:26 ?93 kg [place] 250 mL 54 :54 (17.4375-1 Medical infusion 74.375 [place] RTU mL/hr, rounded to 17.44-174. 38 mL/hr), IV Infusion, TITRATE, MAP Goal > or = 65 mmHg, Starting on Wed02/23/22 at 2327, For 24 hours
I nitiate titration at 0.05 mcg/kg/min . &nb sp;Increas e by 0.01 mcg/kg/min every 30 seconds to 5 minutes as needed to reach and maintain goal blood pressure.& nbsp;&nbsp ;Maximum dose = 0.5 mcg/kg/min . &nb sp;If goal not maintained at maximum allowed dose, contact prescriber . &nb sp;Adminis ter only one peripheral intravenou s vasopresso r at a time.
lactated 2021- No 1000mL at 999 Univ ers ringers IV 02-2402 mL/hr, ity of infusion 03:15: 02:10 1,000 mL, Compa as 1,000 mL 00 :00 Intravenou Medic al s, ONCE, 1 Branch dose, On Wed02/23/22 at 2215, Routine sennosides Yes 8.6mg 8.6 mg, Uni vers (SENOKOT) 02-23 Oral, ity of tablet 8.6 22:45: DAILY, [place] mg 00 First dose Medical on Mon Branch 02/23/22 at 1745, Until Discontinu ed, Routine simethicone Yes 80mg 80 mg, Univ ers (GAS RELIEF 02-23 Oral, ity of (SIMETHICON 14:00: PC+HS, [place] E)) 00 First dose Medical chewable on [facility] tablet 80 02/23/22 at mg 0900, Until Discontinu ed, Routine metoprolol 2021- No 25mg 25 mg, Univ ers succinate 02-23 Oral, BID, ity of XL (TOPROL 13:00: 03:28 First dose [place] XL) tablet 00 :19 on [facility] Medical 25 mg 02/23/22 at Branch 0800, Until Discontinu ed, Routine melatonin 2021- No 6mg 6 mg, Univer s (MELATIN) 02-23 Oral, ONCE ity of tablet 6 mg 08:15: 07:18 NOW, 1 [place] as 00 :00 dose, On Medical [facility] 02/23/22 Branch at 0315, Routine hydrOXYzine 2021- No 10mg 10 mg, Uni vers (ATARAX) 02-23 Oral, ity of tablet 10 01:58: 03:43 Q8HPRN, [place] mg 32 :01 Starting Medical on [place] Branch 02/22/22 at 2058, Until [facility] 02/23/22 at 2243, Routine, Anxiety ondansetron 2021- No 4mg 4 mg, Slow Univers (ZOFRAN 02-23 IV Push, ity of (PF)) 00:15: 00:39 ONCE, On [place] injection 4 00 :00 [facility] mg 02/22/22 at Branch 1915, For 1 dose
Do ses of ondansetro n 16 mg and above need to be administer ed via IV piggyback. For Dose >=24mg ECG monitoring is advisable.
LORazepam 2021- No .5mg 0.5 mg, Univ ers (ATIVAN) 02-22 Oral, ity of tablet 0.5 22:14: 09:44 BIDPRN, Compa as mg 22 :05 Starting Medical on [place] 02/22/22 at 1714, Until Wed02/24/22 at 0444, Routine, Anxiety pregabalin Yes 300mg 300 mg, Uni vers (LYRICA) 02-22 Oral, BID, ity o f capsule 300 19:30: First dose [place] mg 00 (after Medical last Branch modificati on) on [place] 02/22/22 at 1430, Until Discontinu ed, Routine trimethoben Yes 200mg 200 mg, Un alexia zamide 02-22 Intramuscu ity of (TIGAN) 17:45: lar, [place] injection 43 Q6HPRN, Medical 200 mg Starting Branch on Wed02/22/22 at 1245, Until Discontinu ed, Routine, Nausea and Vomiting (N/V) levoFLOXaci 2021- No 750mg 750 mg, U nivers n 02-22 Oral, Q24H ity of (LEVAQUIN) 17:45: 18:17 ABX, 3 [place] tablet 750 00 :00 doses, Medical mg First dose Branch on Wed02/22/22 at 1245, Last dose on Wed02/24/22 at 1245, CT
Re ason for Anti-Infec tive: Documented Infection< br>Documen alden Infection Site: Respirator y
Durat ion of Therapy: 7 days
Re stricted use approved by: MACKENZIE WHITTAKER, ADULT ID HYDROcodone 2021- No 1{tbl} 1 tablet, Univers -acetaminop 02-22 Oral, Q6H, i ty of hen (NORCO 17:00: 09:43 First dose [place] 5) 5-325 mg 00 :53 (after Medica l tablet 1 last Branch tablet modificati on) on [place] 02/22/22 at 1200, Until Discontinu ed, Routine acetaminoph 2021- No 650mg 650 mg, U nivers en 02-22 0803 Oral, ity of (TYLENOL) 14:35: 08:19 Q6HPRN, [place] tablet 650 20 :38 Starting Medic al mg on [facility] 02/22/22 at 0935, Until Wed02/25/22 at 0319, Routine, Pain (scale 1-3) ceFEPIme 2021- No 2000mg 2,000 mg, U nivers (MAXIPIME) 02-22 IV ity of 2,000 mg in 13:15: 14:10 Piggyback, [place] NaCl 0.9% 00 :00 ONCE, 1 Medical (NS) 50 mL dose, On Bran h MINI-BAG [place] 02/22/22 at 0815, Administer over 30 Minutes, 50 mL
Reas on for Anti-Infec tive: Documented Infection< br>Documen alden Infection Site: Respirator y
Du ration of Therapy: 10 days acetaminoph 2021- No 500mg 500 mg, U nivers en 02-22 Oral, ONCE ity of (TYLENOL) 10:30: 09:34 NOW, 1 [place] tablet 500 00 :00 dose, On Medic al mg [facility] 02/22/22 at 0530, Routine HYDROcodone 2021- No 1{tbl} 1 tablet, Univers -acetaminop 02-22 Oral, ity of hen (NORCO 08:00: 07:02 ONCE, 1 [place] 5) 5-325 mg 00 :00 dose, On Medi michel tablet 1 [place] Branch tablet 02/22/22 at 0300, Routine HYDROcodone 2021- No 1{tbl} 1 tablet, Univers -acetaminop 02-21 Oral, ity of hen (NORCO 23:15: 22:32 ONCE, 1 [place] as 5) 5-325 mg 00 :00 dose, On Medi michel tablet 1 [facility] tablet 02/21/22 at 1815, Routine rosuvastati Yes 10mg 10 mg, Univ ers n (CRESTOR) 02-21 Oral, ity of tablet 10 14:00: DAILY, [place] mg 00 First dose Medical on [facility] 02/21/22 at 0900, Until Discontinu ed, Routine aspirin Yes 81mg 81 mg, Univers chewable 02-21 Oral, ity of tablet 81 14:00: DAILY, [place] mg 00 First dose Medical on [facility] 02/21/22 at 0900, Until Discontinu ed, Routine spironolact 2021- No 25mg 25 mg, Uni vers one 02-2103 Oral, ity of (ALDACTONE) 14:00: 03:59 DAILY, Compa as tablet 25 00 :42 First dose Medi michel mg on [facility] 02/21/22 at 0900, Until Discontinu ed, Routine furosemide 2021- No 40mg 40 mg, Univ ers (LASIX) 02-21 Oral, ity of tablet 40 14:00: 03:28 DAILY, [place] mg 00 :19 First dose Medical on [facility] 02/21/22 at 0900, Until Discontinu ed, Routine predniSONE 2021- No 40mg 40 mg, Univ ers (DELTASONE) 02-21 Oral, ity of tablet 40 14:00: 13:46 DAILY, [place] mg 00 :51 First dose Medical on [facility] 02/21/22 at 0900, Until Discontinu ed, Routine HYDROcodone 2021- No 1{tbl} 1 tablet, Univers -acetaminop 02-21 Oral, ity of hen (NORCO 12:00: 11:09 ONCE, 1 Compa as 5) 5-325 mg 00 :00 dose, On Medi michel tablet 1 [facility] tablet 02/21/22 at 0700, Routine albuterol Yes 2.5mg 2.5 mg, Univ ers (PROVENTIL) 02-21 Inhalation it y of 2.5 mg /3 03:00: , Q8H, [place] mL (0.083 00 First dose Medi michel %) on [facility] nebulizer 02/20/22 at solution 2200, 2.5 mg Until Discontinu ed, Routine QUEtiapine Yes 50mg 50 mg, Unive rs (SEROQUEL) 02-21 Oral, QHS, ity of tablet 50 02:30: First dose [place] mg 00 on [facility] 02/20/22 at Branch 2130, Until Discontinu ed, Routine Sliding Yes Subcutaneo Univ ers Scale 7-30 us, TID ity of Insulin - 02:00: MEALS+HS, Compa as Lispro 00 First dose Medical (HumaLOG) + on Wed Branch Fsbg 02/20/22 at Testing 2100, Until Discontinu ed, Routine pregabalin No 300mg 300 mg, Un alexia (LYRICA) 02-21 0731 Oral, QHS, ity of capsule 300 02:00: 19:24 First dose [place] mg 00 :59 on Fri Medical 02/20/22 at Branch 2100, Until Discontinu ed, Routine heparin Yes 5000U 5,000 Univers (porcine) 02-21 Units, ity of injection 01:00: Subcutaneo [place] 5,000 Units 00 us, Q12H, Med ical First dose Branch on Wed02/20/22 at 1999, Until Discontinu ed, Routine ceFEPIme 2021- No 2000mg 2,000 mg, U nivers (MAXIPIME) 02-21 IV ity of 2,000 mg in 01:00: 02:37 Piggyback, [place] NaCl 0.9% 00 :00 ONCE, 1 Medical (NS) 50 mL dose, On Branc h MINI-BAG Wed02/20/22 at 1999, Administer over 30 Minutes, 50 mL
Reas on for Anti-Infec tive: Documented Infection< br>Documen alden Infection Site: Abdominal< br>Duratio n of Therapy: 7 days acetylcyste 2021- No 4mL 800 mg (4 Univers ine 02-21 mL), ity of (MUCOMYST) 01:00: 22:40 Inhalation [place] 200 mg/mL 00 :41 , TID, Medical (20 %) First dose Branch solution on Fri 800 mg 02/20/22 at 1999, Until Discontinu ed, Routine sodium No 4mL 4 mL, Univers chloride 7% 02-21 0730 Inhalation i ty of (HYPER-BLESSING) 01:00: 22:40 , TID, Compa as nebulizer 00 :41 First dose Medi michel solution 4 on Fri Branch mL 02/20/22 at 1999, Until Discontinu ed, Routine glucagon Yes 1mg 1 mg, Univers (GLUCAGEN 02-21 Intramuscu ity of DIAGNOSTIC 00:51: lar, PRN, [place] KIT) 19 Starting Medical injection 1 on Wed [facility] 02/20/22 at 195, Until Discontinu ed, CT, Blood Glucose < or = 70 mg/dL and patient is unable to swallow or has mental changes. dextrose 50 0 Yes 25mL 25 mL, Univ ers % in water 02-21 Slow IV ity of (D50W) 00:51: Push, PRN, [place] injection 19 Starting Medica l 25 mL on Wed [place] 02/20/22 at 195, Until Discontinu ed, CT, Blood Glucose < or = 70 mg/dL and patient is unable to swallow or has mental status changes. acetaminoph 2021- No 650mg 650 mg, U nivers en 02-21 Oral, ity of (TYLENOL) 00:26: 14:35 Q6HPRN, [place] tablet 650 11 :39 Starting Medic al mg on Wed [place] 02/20/22 at 1926, Until 02/22/22 at 0935, Routine, Pain (scale 1-3), Pain (scale 4-6) furosemide 2021-0 Yes 40mg Take 1 Unive rs 40 mg 7-27 tablet by ity of tablet 00:00: mouth in [place] [id number] the Medical morning. Branch furosemide 2021-0 Yes 40mg Take 1 Unive rs 40 mg 7-27 tablet by ity of tablet 00:00: mouth in [place] [id number] the Medical morning. Branch furosemide 2021-0 Yes 40mg Take 1 Unive rs 40 mg 7-27 tablet by ity of tablet 00:00: mouth in [place] [id number] the Medical morning. Branch furosemide 2021-0 Yes 40mg Take 1 Unive rs 40 mg 7-27 tablet by ity of tablet 00:00: mouth in [place] [id number] the Medical morning. Branch furosemide 2021-0 Yes 40mg Take 1 Unive rs 40 mg 7-27 tablet by ity of tablet 00:00: mouth in [place] [address] the Medical morning. Branch furosemide 2021-0 Yes 40mg Take 1 Unive rs 40 mg 7-27 tablet by ity of tablet 00:00: mouth in [place] 00 the Medical morning. Branch furosemide 2021-0 Yes 40mg Take 1 Unive rs 40 mg 7-27 tablet by ity of tablet 00:00: mouth in [place] 00 the Medical morning. Branch furosemide 2021-0 Yes 40mg Take 1 Unive rs 40 mg 7-27 tablet by ity of tablet 00:00: mouth in [place] 00 the Medical morning. Branch furosemide 2021-0 Yes 40mg Take 1 Unive rs 40 mg 7-27 tablet by ity of tablet 00:00: mouth in [place] 00 the Medical morning. Branch furosemide 202-0 Yes 40mg Take 1 Unive rs 40 mg 7-27 tablet by ity of tablet 00:00: mouth in [place] 00 the Medical morning. Branch furosemide 2021-0 Yes 40mg Take 1 Unive rs 40 mg 7-27 tablet by ity of tablet 00:00: mouth in [place] 00 the Medical morning. Branch HYDROcodone 0 Yes 1{tbl} Take 1 Un alexia -acetaminop 7-26 tablet by ity of hen 10-325 18:10: mouth [place] mg tablet 37 every 8 Medical (eight) Branch hours as needed. cyclobenzap 0 Yes 10mg Take 10 mg Univers rine 5 mg 7-26 by mouth 3 ity of tablet 18:10: (three) [place] 37 times Medical daily. Branch LORazepam 0 Yes .5mg Take 0.5 Univ ers 0.5 mg 7-26 mg by ity of tablet 18:10: mouth 2 [place] 37 (two) Medical times Branch daily as needed. ipratropium 2021-0 Yes 1{ampul 1 Ampule Univers -albuterol 7-26 e} every 4 ity of 0.5 mg-3 18:10: (four) [place] mg(2.5 mg 37 hours as Medica l base)/3 mL needed for [facility] nebulizer Wheezing. solution semaglutide 0 Yes inject Univ ers (OZEMPIC) 7-26 under the ity o f 0.25 mg or 18:10: skin. [place] 0.5 mg(2 37 Medical mg/1.5 mL) Branch PnIj dulaglutide 2021-0 Yes Trulicity U nivers (TRULICITY) 7-26 3 mg/0.5 ity of 3 mg/0.5 mL 18:10: mL [place] PnIj 37 subcutaneo Medical pen Branch injector metFORMIN 2021-0 Yes 750mg Take 750 Uni vers 500 mg 24 7-26 mg by ity of hr tablet 18:10: mouth [place] 37 daily with Medical breakfast. Branch spironolact 2021-0 Yes 25mg Take 25 mg Univers one 25 mg 7-26 by mouth ity of tablet 18:10: in the [place] [id number] morning Medical and 25 mg Branch at noon and 25 mg in the evening. HYDROcodone 2021-0 Yes 1{tbl} Take 1 Un alexia -acetaminop 7-26 tablet by ity of hen 10-325 18:10: mouth [place] mg tablet 37 every 8 Medical (eight) Branch hours as needed. cyclobenzap 2021-0 Yes 10mg Take 10 mg Univers rine 5 mg 7-26 by mouth 3 ity of tablet 18:10: (three) [place] 37 times Medical daily. Branch LORazepam 2021-0 Yes .5mg Take 0.5 Univ ers 0.5 mg 7-26 mg by ity of tablet 18:10: mouth 2 [place] 37 (two) Medical times Branch daily as needed. ipratropium 2021-0 Yes 1{ampul 1 Ampule Univers -albuterol 7-26 e} every 4 ity of 0.5 mg-3 18:10: (four) [place] mg(2.5 mg 37 hours as Medica l base)/3 mL needed for [facility] nebulizer Wheezing. solution semaglutide 0 Yes inject Univ ers (OZEMPIC) 7-26 under the ity o f 0.25 mg or 18:10: skin. [place] 0.5 mg(2 37 Medical mg/1.5 mL) Branch PnIj dulaglutide 2021-0 Yes Trulicity U nivers (TRULICITY) 7-26 3 mg/0.5 ity of 3 mg/0.5 mL 18:10: mL [place] PnIj 37 subcutaneo Medical pen Branch injector metFORMIN 2021-0 Yes 750mg Take 750 Uni vers 500 mg 24 7-26 mg by ity of hr tablet 18:10: mouth [place] 37 daily with Medical breakfast. Branch spironolact 2021-0 Yes 25mg Take 25 mg Univers one 25 mg 7-26 by mouth ity of tablet 18:10: in the [place] 37 morning Medical and 25 mg Branch at noon and 25 mg in the evening. pregabalin Yes 300mg 300 mg, Uni vers (LYRICA) 02-17 Oral, BID, ity o f capsule 300 14:30: First dose [place] mg 00 (after Medical last Branch modificati on) on Wed02/17/22 at 0930, Until Discontinu ed, Routine furosemide Yes 40mg 40 mg, Unive rs (LASIX) 02-17 Oral, ity of tablet 40 14:00: DAILY, [place] mg 00 First dose Medical (after Branch last modificati on) on Wed02/17/22 at 0900, Until Discontinu ed, Routine ceFEPIme Yes 2000mg 2,000 mg, Un alexia (MAXIPIME) 02-17 IV ity of 2,000 mg in 03:30: Piggyback, [place] NaCl 0.9% 00 Q12H ABX, Medic al (NS) 50 mL First dose [facility] piggyback on Wed02/16/22 at 2230, Until Discontinu ed, Administer over 4 Hours, 50 mL
Reas on for Anti-Infec tive: Documented Infection< br>Documen alden Infection Site: Respirator y
Durat ion of Therapy: 7 days NaCl 0.9% Yes 2000mg Infuse Univ ers (NS) SolP 02-17 2,000 mg ity of 50 mL with 00:00: every 12 Compa as ceFEPIme 1 00 (twelve) Medic al gram SolR hours. Branch 2,000 mg NaCl 0.9% 0 Yes 2000mg Infuse Univ ers (NS) SolP 02-17 2,000 mg ity of 50 mL with 00:00: every 12 Compa as ceFEPIme 1 00 (twelve) Medic al gram SolR hours. Branch 2,000 mg NaCl 0.9% 0 202- No 2000mg Infuse Uni vers (NS) SolP 02-17 08-05 2,000 mg ity o f 50 mL with 00:00: 00:00 every 12 [place] ceFEPIme 1 00 :00 (twelve) Medic al gram SolR hours. Branch 2,000 mg Sliding Yes Subcutaneo Univ ers Scale 02-16 us, TID ity of Insulin - 22:00: MEALS+HS, Compa as lispro 00 First dose Medical (humaLOG) + (after Branch Fsbg last Testing modificati on) on Wed02/16/22 at 1700, Until Discontinu ed, Routine ceFEPIme No 2000mg 2,000 mg, U nivers (MAXIPIME) 02-16 IV ity of 2,000 mg in 15:30: 15:30 [place], [place] NaCl 0.9% 00 :00 ONCE, 1 Medical (NS) 50 mL dose, On Branc h piggyback [facility] 02/16/22 at 1030, Administer over 30 Minutes, 50 mL
Reas on for Anti-Infec tive: Documented Infection< br>Documen alden Infection Site: Respirator y
Du ration of Therapy: 7 days lidocaine No 5mL 5 mL, Univer s 1% (PF) 02-16 Subcutaneo ity o f (XYLOCAINE) 14:45: 22:45 us, ONCE, [place] injection 5 00 :00 1 dose, On Me dical mL Wed [place] 02/16/22 at 0945, Routine NaCl 0.9% Yes 10mL 10 mL, Univer s (NS) 02-16 Slow IV ity of injection 14:36: Push, PRN, [place] 10 mL 37 Starting Medical on Wed [place] 02/16/22 at 0936, Until Discontinu ed, Routine, line maintenanc e furosemide 2021- No 40mg 40 mg, Univ ers (LASIX) 02-16 Oral, BID, ity o f tablet 40 01:00: 12:21 First dose [place] mg 00 :21 on [facility] 02/15/22 at Branch 2000, Until Discontinu ed, Routine insulin Yes 24U 24 Units, Unive rs glargine 02-15 Subcutaneo ity o f (LANTUS 16:53: us, Q24H, [place] U-100) 00 First dose Medical injection (after Branch 24 Units last modificati on) on [place] 02/15/22 at 1153, Until Discontinu ed, Routine insulin Yes 5U 5 Units, Univer s lispro 02-14 Subcutaneo ity of (human) 22:00: us, TID [place] (HumaLOG 00 MEALS, Medical U-100) First dose Branch injection 5 on Sat Units 02/14/22 at 1700, Until Discontinu ed, Routine Sliding 2021- No Subcutaneo Uni vers Scale 02-14 us, Q4H, ity of Insulin - 21:00: 20:49 First dose [place] lispro 00 :46 (after Medical (humaLOG) + last Branch Fsbg modificati Testing on) on 02/14/22 at 1600, Until Discontinu ed, Routine insulin 2021- No 3U 3 Units, Unive rs glargine 02-14 Subcutaneo ity of (LANTUS 17:58: 19:34 us, ONCE, [place] U-100) 00 :00 1 dose, On Medical injection 3 Sat Branch Units 02/14/22 at 1300, Routine insulin 2021- No 21U 21 Units, Univ ers glargine 02-14 Subcutaneo ity of (LANTUS 16:53: 17:59 us, Q24H, [place] U-100) 11 :02 First dose Medical injection (after Branch 21 Units last modificati on) on 02/14/22 at 1153, Until Discontinu ed, Routine levothyroxi Yes 50ug 50 mcg, Uni vers ne 02-14 Oral, ity of (SYNTHROID) 11:00: QAM-0600, [place] tablet 50 00 First dose Medi michel mcg on Sat Branch 02/14/22 at 0600, Until Discontinu ed, Routine piperacilli 2021- No 4.5g 4.5 g, IV Univers n-tazobacta 02-13 Piggyback, i ty of m (ZOSYN) 23:30: 14:28 Q8H ABX, Compa as 4.5 g in 00 :14 First dose Medic al NaCl 0.9% (after Branch (NS) 50 mL last MINI-BAG modificati on) on Wed02/13/22 at 1830, Until Discontinu ed, Administer over 4 Hours, 50 mL
Reas on for Anti-Infec tive: Empiric Therapy for Suspected Infection< br>Empiric Therapy Site: Respirator y
Durat ion of therapy: 7 days HYDROcodone Yes 1{tbl} 1 tablet, Univers -acetaminop 02-13 Oral, ity of hen (NORCO 21:00: Q4HPRN, [place] 5) 5-325 mg 00 Starting Medi michel tablet 1 on Fri Branch tablet 02/13/22 at 1600, Until Discontinu ed, Routine, Pain (scale 4-6) HYDROcodone 2021- No 1{tbl} 1 tablet, Univers -acetaminop 02-13 Oral, ity of hen (NORCO 19:35: 20:51 Q6HPRN, Compa as 5) 5-325 mg 55 :36 Starting Medi michel tablet 1 on Fri Branch tablet 02/13/22 at 1435, Until Wed02/13/22 at 1551, Routine, Pain (scale 4-6) D10W 10 % 2021- No at 30 Univer s IV infusion 02-1322 mL/hr, IV it y of 17:55: 22:35 Infusion, [place] 58 :45 TITRATE, Medical Starting Branch on Wed02/13/22 at 1255, Until Wed02/13/22 at 1735, Routine Sliding 2021- No Subcutaneo Uni vers Scale 02-13 07-23 us, Q4H, ity of Insulin - 17:00: 17:59 First dose [place] lispro 00 :02 on Fri Medical (humaLOG) + 02/13/22 at Br anch Fsbg 1200, Testing Until Discontinu ed, Routine metoprolol Yes 25mg 25 mg, Unive rs succinate 02-13 Oral, ity of XL (TOPROL 14:00: DAILY, [place] XL) tablet 00 First dose Med ical 25 mg on Wed Branch 02/13/22 at 0900, Until Discontinu ed, Routine aspirin Yes 81mg 81 mg, Univers chewable 02-13 Oral, ity of tablet 81 14:00: DAILY, [place] mg 00 First dose Medical on Fri Branch 02/13/22 at 0900, Until Discontinu ed, Routine acetaminoph Yes 650mg 650 mg, Un alexia en 02-13 Oral, ity of (TYLENOL) 11:54: Q4HPRN, [place] tablet 650 52 Starting Medic al mg on Wed Branch 02/13/22 at 0654, Until Discontinu ed, Routine, Pain (scale 1-3) acetylcyste 2021- No 1mL 200 mg (1 Univers ine 02-13 mL), ity of (MUCOMYST) 05:00: 15:24 Inhalation [place] 200 mg/mL 00 :39 , Q6H, Medical (20 %) First dose Branch solution on Wed 200 mg 02/13/22 at 0000, Until Discontinu ed, Routine QUEtiapine Yes 100mg 100 mg, Uni vers (SEROQUEL) 02-13 Oral, QHS, ity of tablet 100 02:00: First dose [place] mg 00 on [facility] 02/12/22 at Branch 2100, Until Discontinu ed, Routine rosuvastati Yes 10mg 10 mg, Univ ers n (CRESTOR) 02-13 Oral, QHS, it y of tablet 10 02:00: First dose [place] mg 00 on [facility] 02/12/22 at Branch 2100, Until Discontinu ed, Routine pregabalin 2021- No 300mg 300 mg, Un alexia (LYRICA) 02-13 Oral, QHS, ity of capsule 300 02:00: 13:54 First dose [place] mg 00 :07 on [facility] 02/12/22 at Branch 2100, Until Discontinu ed, Routine furosemide 2021- No 20mg 20 mg, Univ ers (LASIX) 02-1324 Slow IV ity of injection 01:00: 19:35 Push, [place] 20 mg 00 :20 Q12H, Medical First dose Branch on [facility] 02/12/22 at 2000, Until Discontinu ed, Routine piperacilli 2021- No 3.375g 3.375 g, Univers n-tazobacta 02-12 IV ity of m (ZOSYN) 23:30: 19:31 Piggyback, [place] 3.375 g in 00 :45 Q8H ABX, Medic al NaCl 0.9% First dose Bran ch (NS) 50 mL on [place] MINI-BAG 02/12/22 at 1830, Until Discontinu ed, Administer over 4 Hours, 50 mL
Reas on for Anti-Infec tive: Empiric Therapy for Suspected Infection< br>Empi aracely Therapy Site: Respirator y
Durat ion of therapy: 7 days proCHLORper Yes 10mg 10 mg, IV U nivers azine 02-12 Piggyback, ity of (COMPAZINE) 23:13: at 100 [place] 10 mg in 35 mL/hr Medical NaCl 0.9% Administer Bran ch (NS) over 30 piggyback Minutes, Q6HPRN, Starting on [place] 02/12/22 at 1813, Until Discontinu ed, Routine, Nausea and Vomiting (N/V) D5W 0.45% 2021- No IV Univers NaCl 02-12-22 Infusion, ity of (1/2NS) 1 L 22:29: 16:55 at 100 Compa as + KCL 20 12 :29 mL/hr, PRN Medic al mEq - SEE Branch INSTRUCTIO NS, Starting on [place] 02/12/22 at 1729, Until Wed02/13/22 at 1155, CT, Blood glucose control ondansetron Yes 4mg 4 mg, Slow Univers (ZOFRAN 02-12 IV Push, ity of (PF)) 21:36: Q6HPRN, [place] injection 4 19 Nausea and Me dical mg Vomiting Branch (N/V), Starting on [place] 02/12/22 at 1636
Do ses of ondansetro n 16 mg and above need to be administer ed via IV piggyback. For Dose >=24mg ECG monitoring is advisable.
ipratropium Yes 3mL 3 mL, Unive rs -albuteroL 02-12 Inhalation ity of (DUONEB) 19:00: , Q6H, [place] 0.5 mg-3 00 First dose Medic al mg(2.5 mg on [place] Branch base)/3 mL 02/12/22 at nebulizer 1400, solution 3 Until mL Discontinu ed, Routine piperacilli 2021- No 3.375g 3.375 g, [facility] n-tazobacta 02-12 IV ity of m (ZOSYN) 15:30: 17:12 Piggyback, [place] 3.375 g in 00 :00 ONCE, 1 Medica l NaCl 0.9% dose, On Branch (NS) 50 mL [facility] MINI-BAG 02/12/22 at 1030, Administer over 30 Minutes, 50 mL
[place] for Anti-Infec tive: Empiric Therapy for Suspected Infection< br>Empiric Therapy Site: Respirator y
Durat ion of therapy: 7 days enoxaparin Yes 40mg 40 mg, Unive rs (LOVENOX) 02-12 Subcutaneo ity of injection 15:00: us, DAILY, [place] 40 mg 00 First dose Medical (after Branch last modificati on) on [facility] 02/12/22 at 1000, Until Discontinu ed, Routine cefTRIAXone No 1000mg 1,000 mg, Univers (ROCEPHIN) 02-12 IV ity of 1,000 mg in 09:15: 14:35 Piggyback, [place] NaCl 0.9% 00 :41 Q24H ABX, Medic al (NS) 50 mL First dose [facility] MINI-BAG on [place] 02/12/22 at 0415, Until Discontinu ed, Administer over 30 Minutes, 50 mL
Reas on for Anti-Infec tive: Documented Infection< br>Documen alden Infection Site: Respirator y
Durat ion of Therapy: 7 days albuterol Yes 2.5mg 2.5 mg, Univ ers (PROVENTIL) 02-12 Inhalation it y of 2.5 mg /3 08:45: , Q4HPRN, Compa as mL (0.083 01 Starting Medica l %) on [facility] Branch nebulizer 02/12/22 at solution 0345, 2.5 mg Until Discontinu ed, Routine, Shortness of Breath, Wheezing NaCl 0.45% 2021- No 1000mL Univ ers (1/2NS) 02-12 ity of 1000 mL + 08:15: 22:29 [place] KCL 20 mEq 00 :30 [facility] Branch azithromyci 2021- No 500mg 500 mg, IV Univers n 02-12 Piggyback, ity of (ZITHROMAX) 08:09: 14:35 Q24H ABX, [place] 500 mg in 00 :41 First dose Medi michel NaCl 0.9% on [place] Branch (NS) 250 mL 02/12/22 at VIAL-MATE 0315, IV Until piggyback Discontinu ed, Administer over 60 Minutes, 250 mL
Reas on for Anti-Infec tive: Documented Infection< br>Documen alden Infection Site: Respirator y
Durat ion of Therapy: 7 days D5W 0.45% 2021- No IV Univers NaCl 02-12 Infusion, ity of (1/2NS) 1 L 07:59: 22:29 at 200 Compa as + KCL 20 56 :30 mL/hr, PRN Medic al mEq - SEE Branch INSTRUCTIO NS, Starting on [place] 02/12/22 at 0259, Until [place] 02/12/22 at 1729, CT, Blood glucose control furosemide 2021- No 40mg 40 mg, IV U nivers (LASIX) 02-12 Push, ity of injection 03:15: 04:17 ONCE, 1 [place] 40 mg 00 :00 dose, On Medical Wed Branch 02/11/22 at 2215, CT insulin 2021- No 10U 10 Units, Univ ers regular 02-12 Slow IV ity of human 03:15: 04:13 Push, [place] (HUMULIN R) 00 :00 ONCE, 1 Medic al injection dose, On Branch 10 Units 02/11/22 at 2215, STAT iopamidol 2021- No [id number] 60mL 60 mL, Univers (ISOVUE 02-12 Intravenou ity o f 370-500 mL) 02:30: 02:30 s, ONCE, 1 [place] injection 00 :00 dose, On Medica l 60 mL Wed Branch 02/11/22 at 2145, Routine predniSONE Yes [id number] 50mg Take 1 Univers 50 mg 02-01 00 tablet by ity of tablet 00:00: mouth [place] 00 daily. Medical Branch aspirin 81 2021-0 Yes [id number] 81mg Take 1 Univers mg chewable 7-10 00 tablet by ity of tablet 00:00: mouth [place] 00 daily with Medical breakfast. Branch predniSONE 2021-0 Yes [id number] 50mg Take 1 Univers 50 mg 7-10 00 tablet by ity of tablet 00:00: mouth [place] 00 daily. Medical Branch aspirin 81 2021-0 Yes [id number] 81mg Take 1 Univers mg chewable 7-10 00 tablet by ity of tablet 00:00: mouth [place] 00 daily with Medical breakfast. Branch aspirin 81 2021-0 Yes [id number] 81mg Take 1 Univers mg chewable 7-10 00 tablet by ity of tablet 00:00: mouth [place] 00 daily with Medical breakfast. Branch aspirin 81 2021-0 Yes [id number] 81mg Take 1 Univers mg chewable 7-10 00 tablet by ity of tablet 00:00: mouth [place] 00 daily with Medical breakfast. Branch aspirin 81 2021-0 Yes [id number] 81mg Take 1 Univers mg chewable 7-10 00 tablet by ity of tablet 00:00: mouth [place] 00 daily with Medical breakfast. Branch aspirin 81 0 Yes [id number] 81mg Take 1 Univers mg chewable 7-10 00 tablet by ity of tablet 00:00: mouth [place] 00 daily with Medical breakfast. Branch aspirin 81 2021-0 Yes [id number] 81mg Take 1 Univers mg chewable 7-10 00 tablet by ity of tablet 00:00: mouth [place] 00 daily with Medical breakfast. Branch aspirin 81 2021-0 Yes [id number] 81mg Take 1 Univers mg chewable 7-10 00 tablet by ity of tablet 00:00: mouth [place] 00 daily with Medical breakfast. Branch aspirin 81 2021-0 Yes [id number] 81mg Take 1 Univers mg chewable 7-10 00 tablet by ity of tablet 00:00: mouth [place] 00 daily with Medical breakfast. Branch aspirin 81 2021-0 Yes [id number] 81mg Take 1 Univers mg chewable 7-10 00 tablet by ity of tablet 00:00: mouth [place] 00 daily with Medical breakfast. Branch aspirin 81 2021-0 Yes [id number] 81mg Take 1 Univers mg chewable 7-10 00 tablet by ity of tablet 00:00: mouth [place] 00 daily with Medical breakfast. Branch aspirin 81 Yes [id number] 81mg Take 1 Univers mg chewable - 00 tablet by ity of tablet 00:00: mouth [place] 00 daily with Medical breakfast. Branch aspirin 81 0 Yes [id number] 81mg Take 1 Univers mg chewable 02-01 00 tablet by ity of tablet 00:00: mouth [place] 00 daily with Medical breakfast. Branch predniSONE 2021- No [id number] 50mg Take 1 Univers 50 mg 7-02-17 tablet by ity of tablet 00:00: 00:00 mouth [place] 00 :00 daily. Medical Branch aspirin 81 2021- No [id number] 81mg Take 1 Univers mg chewable 7-10 01-31 tablet by it y of tablet 00:00: 00:00 mouth [place] 00 :00 daily with Medical breakfast. Branch predniSONE 2021- No [id number] 50mg Take 1 Univers 50 mg -01-31 00 tablet by ity of tablet 00:00: 00:00 mouth [place] 00 :00 daily for Medical 2 days. Branch predniSONE 2021- No 50mg 50 mg, Univ ers (DELTASONE) 01-31- Oral, ity of tablet 50 14:00: 13:59 DAILY, 3 Compa as mg 00 :00 doses, Medical First dose Branch on 01/31/22 at 0900, Last dose on 02/02/22 at 0900, Routine HYDROcodone Yes 1{tbl} Take 1 Un alexia -acetaminop 7- tablet by ity of hen 10-325 13:56: mouth [place] mg tablet 12 every 8 Medical (eight) Branch hours as needed. cyclobenzap Yes 10mg Take 10 mg Univers rine 5 mg 7-09 by mouth 3 ity of tablet 13:56: (three) [place] 12 times Medical daily. Branch LORazepam Yes .5mg Take 0.5 Univ ers 0.5 mg 7-09 mg by ity of tablet 13:56: mouth 2 [place] 12 (two) Medical times Branch daily as needed. ipratropium 2022-0 Yes 1{ampul 1 Ampule Univers -albuterol 7-09 e} every 4 ity of 0.5 mg-3 13:56: (four) [place] mg(2.5 mg 12 hours as Medica l base)/3 mL needed for Bra nch nebulizer Wheezing. solution semaglutide 2021-0 Yes inject Univ ers (OZEMPIC) 7-09 under the ity o f 0.25 mg or 13:56: skin. [place] 0.5 mg(2 12 Medical mg/1.5 mL) Branch PnIj dulaglutide 2021-0 Yes Trulicity U nivers (TRULICITY) 7-09 3 mg/0.5 ity of 3 mg/0.5 mL 13:56: mL [place] PnIj 12 subcutaneo Medical us pen Branch injector metFORMIN 2021-0 Yes 750mg Take 750 Uni vers 500 mg 24 7-09 mg by ity of hr tablet 13:56: mouth [place] 12 daily with Medical breakfast. Branch HYDROcodone 0 Yes 1{tbl} Take 1 Un alexia -acetaminop 7-09 tablet by ity of hen 10-325 13:56: mouth [place] mg tablet 12 every 8 Medical (eight) Branch hours as needed. cyclobenzap 0 Yes 10mg Take 10 mg Univers rine 5 mg 7-09 by mouth 3 ity of tablet 13:56: (three) [place] 12 times Medical daily. Branch LORazepam 0 Yes .5mg Take 0.5 Univ ers 0.5 mg 7-09 mg by ity of tablet 13:56: mouth 2 [place] 12 (two) Medical times Branch daily as needed. ipratropium 0 Yes 1{ampul 1 Ampule Univers -albuterol 7-09 e} every 4 ity of 0.5 mg-3 13:56: (four) [place] mg(2.5 mg 12 hours as Medica l base)/3 mL needed for Bra nch nebulizer Wheezing. solution semaglutide 2021-0 Yes inject Univ ers (OZEMPIC) 7-09 under the ity o f 0.25 mg or 13:56: skin. [place] 0.5 mg(2 12 Medical mg/1.5 mL) Branch PnIj dulaglutide 2021-0 Yes Trulicity U nivers (TRULICITY) 7-09 3 mg/0.5 ity of 3 mg/0.5 mL 13:56: mL [place] PnIj 12 subcutaneo Medical pen Branch injector metFORMIN 2021- Yes 750mg Take 750 Uni vers 500 mg 24 01-31 mg by ity of hr tablet 13:56: mouth [place] 12 daily with Medical breakfast. Branch Potassium 2021- No Take by [facility] [place] [facility] ers Gluconate 01-31 mouth ity of 595 mg (99 11:48: 00:00 weekly. Compa as mg) Tab 08 :00 Medical Branch spironolact 2021- No 25mg Take 25 mg Univers one 25 mg 01-31 by mouth 2 ity of tablet 11:48: 00:00 (two) [place] 08 :00 times Medical daily. Branch LORazepam 2021- No .5mg 0.5 mg, Univ ers (ATIVAN) 01-31 Oral, ity of tablet 0.5 02:45: 01:48 ONCE, 1 [place] mg 00 :00 dose, On Medical Wed01/30/22 Branch at 2145, Routine furosemide Yes 40mg 40 mg, Unive rs (LASIX) 01-31 Oral, BID, ity of tablet 40 01:00: First dose [place] mg 00 on Wed01/30/22 at Branch 2000, Until Discontinu ed, Routine metoprolol Yes [id number] 25mg Take 1 [facility] succinate 01-31 tablet by ity o f XL 25 mg 24 00:00: mouth 2 [facility] hr tablet 00 (two) Medical times Branch daily. metoprolol 2021-0 Yes [id number] 25mg Take 1 [facility] succinate 01-31 00 tablet by ity o f XL 25 mg 24 00:00: mouth 2 [place] hr tablet 00 (two) Medical times Branch daily. metoprolol 2021-0 Yes [id number] 25mg Take 1 [facility] succinate 01-31 00 tablet by ity o f XL 25 mg 24 00:00: mouth 2 [place] hr tablet 00 (two) Medical times Branch daily. metoprolol 2021- Yes [id number] 25mg Take 1 [facility] succinate 01-31 00 tablet by ity o f XL 25 mg 24 00:00: mouth 2 [place] hr tablet 00 (two) Medical times Branch daily. furosemide 2021- No [id number] 40mg Take 1 [facility] 40 mg 01-31 tablet by ity of tablet 00:00: 04:59 mouth 2 [place] 00 :00 (two) Medical times Branch daily for 30 days. furosemide 2021- No [id number] 40mg Take 1 [facility] 40 mg 01-31 tablet by ity of tablet 00:00: 04:59 mouth 2 [place] 00 :00 (two) Medical times Branch daily for 30 days. metoprolol 2021- No [id number] 25mg Take 1 [facility] succinate 01-31 tablet by ity of XL 25 mg 24 00:00: 00:00 mouth 2 [place] hr tablet 00 :00 (two) Medical times Branch daily. furosemide 2021- No [id number] 40mg Take 1 [facility] 40 mg 01-31 tablet by ity of tablet 00:00: 00:00 mouth 2 [place] 00 :00 (two) Medical times Branch daily for 30 days. metoprolol 2021- No [id number] 25mg Take 1 [facility] succinate 01-31 tablet by ity of XL 25 mg 24 00:00: 00:00 mouth 2 [place] hr tablet 00 :00 (two) Medical times Branch daily for 30 days. acetaminoph Yes 650mg 650 mg, Un alexia en 01-30 Oral, ity of (TYLENOL) 19:27: Q6HPRN, [place] tablet 650 59 Starting Medic al mg on Fri Branch 01/30/22 at 1427, Until Discontinu ed, Routine, Pain (scale 1-3), Temp > 38.5 C methylPREDN 2021- No 40mg 40 mg, Uni vers ISolone sod 01-29 Intravenou i ty of succ 14:00: 18:37 s, DAILY, [place] (SOLU-MEDRO 00 :50 First dose Me dical L (PF)) on Anay[place] Branch injection 01/29/22 at 40 mg 0900, Until Discontinu ed, 1 mL ceFEPIme 2021- No 2000mg 2,000 mg, U nivers (MAXIPIME) 01-29-08 IV ity of 2,000 mg in 07:15: 22:11 [place], [place] NaCl 0.9% 00 :39 Q8H ABX, Medica l (NS) 50 mL First dose [facility] MINI-BAG on Anayeli 01/29/22 at 0215, Until Discontinu ed, Administer over 4 Hours, 50 mL
Reas on for Anti-Infec tive: Documented Infection< br>Documen alden Infection Site: Respirator y
Durat ion of Therapy: 7 days sodium 2021- Yes 4mL 4 mL, Univers chloride 7% 01-29 Inhalation it y of (HYPER-BLESSING) 01:00: , BID, [place] nebulizer 00 First dose Medi michel solution 4 on Wed Branch mL 01/28/22 at 2000, Until Discontinu ed, Routine ceFEPIme 2021-0 2022- No 2000mg 2,000 mg, U nivers (MAXIPIME) 01-2807 IV ity of 2,000 mg in 23:45: 01:18 [place], [place] NaCl 0.9% 00 :00 ONCE, 1 Medical (NS) 50 mL dose, On Branc h MINI-BAG 01/28/22 at 1845, Administer over 30 Minutes, 50 mL
R ky for Anti-Infec tive: Documented Infection< br>Documen alden Infection Site: Respirator y
Du ration of Therapy: 7 days propofoL IV 0 Yes 5ug/kg/ 5-50 Uni vers infusion 7-06 min mcg/kg/min ity o f 22:46: ?112.5 kg [place] [id number] (3.375-33. Medical 75 mL/hr, Branch rounded to 3.38-33.75 mL/hr), IV Infusion, TITRATE, Sedation-R ASS score (0 to -1), Starting on Wed01/28/22 at 1746
In itiate infusion at 5 mcg/kg/min and titrate by 5 mcg/kg/min every 30 seconds to 10 minutes to goal sedation score. Maximum dose = 50 mcg/kg/min . If goal not maintained at maximum allowed dose, contact prescriber . &nbs p;Tubing and unused portions of vials should be discarded after 12 hours.
albuterol Yes 2.5mg 2.5 mg, Univ ers (PROVENTIL) 01-28 Inhalation it y of 2.5 mg /3 21:00: , Q4H, [place] mL (0.083 00 First dose Medi michel %) (after Branch nebulizer last solution modificati 2.5 mg on) on Wed01/28/22 at 1600, Until Discontinu ed, Routine acetylcyste Yes 4mL 800 mg (4 U nivers ine 01-28 mL), ity of (MUCOMYST) 21:00: Inhalation [place] 200 mg/mL 00 , Q4H, Medical (20 %) First dose Branch solution on Wed 800 mg 01/28/22 at 1600, Until Discontinu ed, Routine LORazepam 2021- No .5mg 0.5 mg, Univ ers (ATIVAN) 01-28 Slow IV ity of injection 20:30: 19:28 Push, [place] 0.5 mg 00 :00 ONCE, 1 Medical dose, On Branch Wed01/28/22 at 1530, Routine
Is the medication being used for status epilepticu s? No furosemide 2021- No 5mg/h 5 mg/hr Un alexia (LASIX) 200 01-28 (2.5 ity of mg in NaCl 19:00: 18:37 mL/hr), IV [place] 0.9% (NS) 00 :50 Infusion, Medic al 100 mL CONTINUOUS Branch infusion , Starting on Wed01/28/22 at 1400
Do Not Refrigerat e.
sulfur 2021- No [id number] 5mL 5 mL, Univ ers hexafluorid 01-28 Intravenou i ty of e microsphr 15:45: 15:45 s, ONCE, 1 [place] (LUMASON) 00 :00 dose, On Medica l injection Wed01/28/22 Br anch mL at 1045, Routine
nutrition faculty member approving Restricted medication : STELLA IVORY enoxaparin Yes 40mg 40 mg, Unive rs (LOVENOX) 01-28 Subcutaneo ity of injection 14:00: us, DAILY, [place] 40 mg 00 First dose Medical on Wed Branch 01/28/22 at 0900, Until Discontinu ed, Routine PARoxetine Yes 40mg 40 mg, Unive rs (PAXIL) 01-28 Oral, ity of tablet 40 14:00: DAILY, [place] mg 00 First dose Medical on Wed Branch 01/28/22 at 0900, Until Discontinu ed, Routine insulin Yes 60U 60 Units, Unive rs glargine 01-28 Subcutaneo ity o f (LANTUS 14:00: us, DAILY, [place] U-100) 00 First dose Medical injection on Wed Branch 60 Units 01/28/22 at 0900, Until Discontinu ed, Routine magnesium Yes 400mg 400 mg, Univ ers oxide 01-28 Oral, BID, ity of (MAG-OX 13:00: First dose [place] 400) tablet 00 on Wed Medica l 400 mg 01/28/22 at Branch 0800, Until Discontinu ed, Routine Sliding Yes Subcutaneo Univ ers Scale 01-28 us, TIDAC, ity of Insulin-Reg 12:30: First dose [place] ular + Fsbg 00 on Wed Medica l Testing 01/28/22 at Branch 0730, Until Discontinu ed, Routine levothyroxi Yes 50ug 50 mcg, Uni vers ne 01-28 Oral, ity of (SYNTHROID) 11:00: QAM-0600, [place] tablet 50 00 First dose Medi michel mcg on Wed Branch 01/28/22 at 0600, Until Discontinu ed, Routine pravastatin 0 Yes 20mg 20 mg, Univ ers (PRAVACHOL) 01-28 Oral, QHS, it y of tablet 20 07:15: First dose [place] mg 00 on Wed Medical 01/28/22 at Branch 0215, Until Discontinu ed, Routine aspirin 0 Yes 81mg 81 mg, Univers chewable 01-28 Oral, QAM ity of tablet 81 07:15: WITH [place] mg 00 BREAKFAST, Medical First dose Branch on Wed01/28/22 at 0215, Until Discontinu ed, Routine sennosides Yes 8.6mg 8.6 mg, Uni vers (SENOKOT) 01-28 Oral, BID, ity of tablet 8.6 07:15: First dose [place] mg 00 on Wed [facility] 01/28/22 at Branch 0215, Until Discontinu ed, Routine docusate 2021-0 Yes 100mg 100 mg, Unive rs (COLACE) 01-28 Oral, BID, ity o f capsule 100 07:15: First dose [place] mg 00 on Wed [facility] 01/28/22 at Branch 0215, Until Discontinu ed, Routine pregabalin 2021-0 Yes 200mg 200 mg, Uni vers (LYRICA) 01-28 Oral, BID, ity o f capsule 200 07:15: First dose [place] mg 00 on Wed [facility] 01/28/22 at Branch 0215, Until Discontinu ed, Routine ondansetron 2021-0 Yes 4mg 4 mg, Slow Univers (ZOFRAN 01-28 IV Push, ity of (PF)) 07:04: Q6HPRN, [place] injection 4 34 Starting Medi michel mg on Wed [place] 01/28/22 at 0204, Until Discontinu ed, Routine, Nausea and Vomiting (N/V) glucagon 2021-0 Yes 1mg 1 mg, Univers (GLUCAGEN 01-28 Intramuscu ity of DIAGNOSTIC 07:03: lar, PRN, [place] KIT) 14 Starting Medical injection 1 on Wed [facility] 01/28/22 at 0203, Until Discontinu ed, CT, Blood Glucose < or = 70 mg/dL and patient is unable to swallow or has mental changes. glucagon 2021-0 Yes 1mg 1 mg, Univers (GLUCAGEN 01-28 Intravenou ity of DIAGNOSTIC 07:03: s, PRN - Compa as KIT) 14 SEE Medical injection 1 INSTRUCTIO Br anch mg NS, Starting on Wed01/28/22 at 0203, Until Discontinu ed, Routine, hypoglycem ia LORazepam 2021-0 Yes .5mg 0.5 mg, Unive rs (ATIVAN) 01-28 Oral, ity of tablet 0.5 07:01: TIDPRN, [place] mg 47 Starting Medical on Wed [place] 01/28/22 at 0201, Until Discontinu ed, Routine, Anxiety famotidine 2021-0 Yes 20mg 20 mg, Unive rs (PEPCID AC) 01-28 Oral, BID, it y of tablet 20 07:00: First dose [place] mg 00 on Wed Medical 01/28/22 at Branch 0200, Until Discontinu ed, Routine QUEtiapine Yes 100mg 100 mg, Uni vers (SEROQUEL) 01-28 Oral, QHS, ity of tablet 100 07:00: First dose [place] mg 00 on Wed Medical 01/28/22 at Branch 0200, Until Discontinu ed, Routine metoprolol Yes 25mg 25 mg, [facility] [place] [facility] succinate 01-28 Oral, BID, ity of XL (TOPROL 07:00: First dose [place] XL) tablet 00 on Wed Medical 25 mg 01/28/22 at Branch 0200, Until Discontinu ed, Routine ipratropium 2021- No 3mL 3 mL, [facility] [place] [facility] ers -albuteroL 01-28 07-06 Inhalation it y of (DUONEB) 07:00: 20:55 , QID, [place] 0.5 mg-3 00 :07 First dose Medic al mg(2.5 mg on Wed Branch base)/3 mL 01/28/22 at nebulizer 0200, solution 3 Until mL Discontinu ed, Routine cyclobenzap Yes 10mg 10 mg, [facility] [place] [facility] ers rine 01-28 Oral, ity of (FLEXERIL) 06:59: TIDPRN, [place] tablet 10 11 Starting Medica l mg on Wed Branch 01/28/22 at 0159, Until Discontinu ed, Routine, Muscle Spasms HYDROcodone Yes 1{tbl} 1 tablet, Univers -acetaminop 01-28 Oral, ity of hen (NORCO) 06:57: Q6HPRN, Compa as 10-325 mg 48 Starting Medica l tablet 1 on Wed Branch tablet 01/28/22 at 0157, Until Discontinu ed, Routine, Pain (scale 4-6) furosemide 2021- No 40mg 40 mg, IV U nivers (LASIX) 01-28 0706 Push, ity of injection 03:15: 03:17 ONCE, 1 [place] 40 mg 00 :00 dose, On Tu01/27/22 Branch at 2215, CT morpHINE (4 0 2021- No 4mg 4 mg, Slow Univers mg/mL) 01-28 IV Push, ity of injection 4 02:30: 02:25 ONCE, 1 [place] mg 00 :00 dose, On Medical Wed01/27/22 Branch at 2130, STAT ondansetron 0 2021- No 4mg 4 mg, Slow Univers (ZOFRAN 01-28 IV Push, ity of (PF)) 02:30: 02:23 ONCE, 1 [place] injection 4 00 :00 dose, On Medi michel mg Wed01/27/22 Branch at 2130, CT HYDROcodone Yes 1{tbl} Take 1 Un alexia -acetaminop 7-05 tablet by ity of hen 10-325 23:08: mouth [place] mg tablet 39 every 8 Medical (eight) Branch hours as needed. cyclobenzap Yes 10mg Take 10 mg Univers rine 5 mg 7-05 by mouth 3 ity of tablet 23:08: (three) [place] 39 times Medical daily. Branch LORazepam 0 Yes .5mg Take 0.5 Univ ers 0.5 mg 7-05 mg by ity of tablet 23:08: mouth 2 [place] 39 (two) Medical times Branch daily as needed. Potassium Yes Take by Unive rs Gluconate 7-05 mouth ity of 595 mg (99 23:08: weekly. [place] mg) Tab 39 Medical Branch ipratropium 0 Yes 1{ampul 1 Ampule Univers -albuterol 7-05 e} every 4 ity of 0.5 mg-3 23:08: (four) [place] mg(2.5 mg 39 hours as Medica l base)/3 mL needed for [facility] nebulizer Wheezing. solution spironolact Yes 25mg Take 25 mg Univers one 25 mg 7-05 by mouth 2 ity of tablet 23:08: (two) [place] 39 times Medical daily. Branch semaglutide Yes inject Univ ers (OZEMPIC) 7-05 under the ity o f 0.25 mg or 23:08: skin. [place] 0.5 mg(2 39 Medical mg/1.5 mL) Branch PnIj dulaglutide Yes Trulicity U nivers (TRULICITY) 7-05 3 mg/0.5 ity of 3 mg/0.5 mL 23:08: mL [place] PnIj 39 subcutaneo Medical pen Branch injector metFORMIN Yes 750mg Take 750 Uni vers 500 mg 24 7-05 mg by ity of hr tablet 23:08: mouth [place] 39 daily with Medical breakfast. Branch ALPRAZolam 2021- No 1mg 1 mg, Unive rs (XANAX) 01-13 Oral, ity of tablet 1 mg 02:45: 01:35 ONCE, 1 [place] 00 :00 dose, On Medical [facility] Branch 01/12/22 at 2145, CT HYDROcodone 2021- No 1{tbl} 1 tablet, Univers -acetaminop 01-13 Oral, ONCE i ty of hen (NORCO) 02:00: 01:08 NOW, 1 [place] 10-325 mg 00 :00 dose, On Medica l tablet 1 [facility] Branch tablet 01/12/22 at 2100, Routine ibuprofen 2021- No 600mg 600 mg, Uni vers (IBU) 01-13 Oral, ity of tablet 600 00:15: 23:14 ONCE, 1 [place] mg 00 :00 dose, On [facility] Branch 01/12/22 at 1915, CT LORazepam Yes .5mg Take 0.5 Univ ers 0.5 mg 6-20 mg by ity of tablet 14:06: mouth 2 [place] 48 (two) Medical times Branch daily as needed. Potassium Yes Take by Unive rs Gluconate 6-20 mouth ity of 595 mg (99 14:06: weekly. [place] mg) Tab 48 Medical Branch ipratropium 0 Yes 1{ampul 1 Ampule Univers -albuterol 6-20 e} every 4 ity of 0.5 mg-3 14:06: (four) [place] mg(2.5 mg 48 hours as Medica l base)/3 mL needed for [facility] nebulizer Wheezing. solution spironolact Yes 25mg Take 25 mg Univers one 25 mg 6-20 by mouth 2 ity of tablet 14:06: (two) [place] 48 times Medical daily. Branch semaglutide Yes inject Univ ers (OZEMPIC) 6-20 under the ity o f 0.25 mg or 14:06: skin. [place] 0.5 mg(2 48 Medical mg/1.5 mL) Branch PnIj dulaglutide Yes Trulicity U nivers (TRULICITY) 6-20 3 mg/0.5 ity of 3 mg/0.5 mL 14:06: mL [place] PnIj 48 subcutaneo Medical us pen Branch injector metFORMIN 2021-0 Yes 750mg Take 750 Uni vers 500 mg 24 6-20 mg by ity of hr tablet 14:06: mouth [place] 48 daily with Medical breakfast. Branch HYDROcodone Yes 1{tbl} Take 1 Un alexia -acetaminop 6-20 tablet by ity of hen 10-325 14:06: mouth [place] mg tablet 48 every 8 Medical (eight) Branch hours as needed. cyclobenzap Yes 10mg Take 10 mg Univers rine 5 mg 6-20 by mouth 3 ity of tablet 14:06: (three) [place] 48 times Medical daily. Branch LORazepam Yes .5mg Take 0.5 Univ ers 0.5 mg 6-20 mg by ity of tablet 14:06: mouth 2 [place] 48 (two) Medical times Branch daily as needed. Potassium Yes Take by Unive rs Gluconate 6-20 mouth ity of 595 mg (99 14:06: weekly. [place] mg) Tab 48 Medical Branch ipratropium Yes 1{ampul 1 Ampule Univers -albuterol 6-20 e} every 4 ity of 0.5 mg-3 14:06: (four) [place] mg(2.5 mg 48 hours as Medica l base)/3 mL needed for [facility] nebulizer Wheezing. solution spironolact Yes 25mg Take 25 mg Univers one 25 mg 6-20 by mouth 2 ity of tablet 14:06: (two) [place] 48 times Medical daily. Branch semaglutide Yes inject Univ ers (OZEMPIC) 6-20 under the ity o f 0.25 mg or 14:06: skin. [place] 0.5 mg(2 48 Medical mg/1.5 mL) Branch PnIj dulaglutide Yes Trulicity U nivers (TRULICITY) 6-20 3 mg/0.5 ity of 3 mg/0.5 mL 14:06: mL [place] PnIj 48 subcutaneo Medical us pen Branch injector metFORMIN 0 Yes 750mg Take 750 Uni vers 500 mg 24 6-20 mg by ity of hr tablet 14:06: mouth [place] 48 daily with Medical breakfast. Branch HYDROcodone Yes 1{tbl} Take 1 Un alexia -acetaminop 6-20 tablet by ity of hen 10-325 14:06: mouth [place] mg tablet 48 every 8 Medical (eight) Branch hours as needed. cyclobenzap Yes 10mg Take 10 mg Univers rine 5 mg 6-20 by mouth 3 ity of tablet 14:06: (three) [place] 48 times Medical daily. Branch LORazepam Yes .5mg Take 0.5 Univ ers 0.5 mg 6-20 mg by ity of tablet 14:06: mouth 2 [place] 48 (two) Medical times Branch daily as needed. Potassium Yes Take by Unive rs Gluconate 6-20 mouth ity of 595 mg (99 14:06: weekly. [place] mg) Tab 48 Medical Branch ipratropium Yes 1{ampul 1 Ampule Univers -albuterol 6-20 e} every 4 ity of 0.5 mg-3 14:06: (four) [place] mg(2.5 mg 48 hours as Medica l base)/3 mL needed for [facility] nebulizer Wheezing. solution spironolact Yes 25mg Take 25 mg Univers one 25 mg 6-20 by mouth 2 ity of tablet 14:06: (two) [place] 48 times Medical daily. Branch semaglutide Yes inject Univ ers (OZEMPIC) 6-20 under the ity o f 0.25 mg or 14:06: skin. [place] 0.5 mg(2 48 Medical mg/1.5 mL) Branch PnIj dulaglutide Yes Trulicity U nivers (TRULICITY) 6-20 3 mg/0.5 ity of 3 mg/0.5 mL 14:06: mL [place] PnIj 48 subcutaneo Medical us pen Branch injector metFORMIN 2022-0 Yes 750mg Take 750 Uni vers 500 mg 24 6-20 mg by ity of hr tablet 14:06: mouth [place] 48 daily with Medical breakfast. Branch HYDROcodone Yes 1{tbl} Take 1 Un alexia -acetaminop 6-20 tablet by ity of hen 10-325 14:06: mouth [place] mg tablet 48 every 8 Medical (eight) Branch hours as needed. cyclobenzap 0 Yes 10mg Take 10 mg Univers rine 5 mg 6-20 by mouth 3 ity of tablet 14:06: (three) [place] 48 times Medical daily. Branch ALPRAZolam 0 Yes [id number] .5mg Take 1 Univers 0.5 mg 6-20 tablet by ity of tablet 00:00: mouth 3 [place] 00 (three) Medical times Branch daily. ALPRAZolam 0 Yes [id number] .5mg Take 1 Univers 0.5 mg 6-20 tablet by ity of tablet 00:00: mouth 3 [place] 00 (three) Medical times Branch daily. ALPRAZolam 0 Yes [id number] .5mg Take 1 Univers 0.5 mg 6-20 tablet by ity of tablet 00:00: mouth 3 [place] 00 (three) Medical times Branch daily. ALPRAZolam 2021-0 Yes [id number] .5mg Take 1 Univers 0.5 mg 6-20 tablet by ity of tablet 00:00: mouth 3 [place] 00 (three) Medical times Branch daily. ALPRAZolam 2021- No [id number] .5mg Take 1 Univers 0.5 mg 6-20 07-09 tablet by ity of tablet 00:00: 00:00 mouth 3 [place] 00 :00 (three) Medical times Branch daily. ALPRAZolam 0 Yes .5mg 0.5 mg, Univ ers (XANAX) 6-19 Oral, TID, ity of tablet 0.5 01:30: First dose [place] mg 00 (after Medical last Branch modificati on) on 01/10/22 at 2030, Until Discontinu ed, Routine ALPRAZolam 2021- No .5mg 0.5 mg, Uni vers (XANAX) 01-10 06-19 Oral, TID, ity o f tablet 0.5 21:30: 01:15 First dose [place] mg 00 :25 on [facility] Medical 01/10/22 at Branch 1630, Until Discontinu ed, Routine acetaminoph 0 Yes 650mg 650 mg, Un alexia en 01-09 Oral, ity of (TYLENOL) 22:42: Q6HPRN, [place] tablet 650 06 Starting Medic al mg on Fri Branch 01/09/22 at 1742, Until Discontinu ed, Routine, Pain (scale 1-3), Pain (scale 4-6) FENTanyl PF 2021- 202- No 50ug 50 mcg, Un alexia (SUBLIMAZE 01-09-17 Slow IV ity o f (PF)) 14:15: 18:52 Push, [place] injection 00 :00 ONCE, 1 Medical 50 mcg dose, On Branch [facility] 01/09/22 at 0915, Routine propofoL IV Yes 5ug/kg/ 5-50 Uni vers infusion 6-17 min mcg/kg/min ity o f 14:02: ?104.3 kg [place] 51 (3.129-31. Medical 29 mL/hr, Branch rounded to 3.13-31.29 mL/hr), IV Infusion, at 3.13-31.29 mL/hr, TITRATE, Starting on [facility] 01/09/22 at 0902, Until Discontinu ed, Sedation-R ASS score (-2 to -3), Routine QUEtiapine Yes 50mg 50 mg, Unive rs (SEROQUEL) 01-09 Oral, BID, ity of tablet 50 01:00: First dose [place] mg 00 (after Medical last Branch modificati on) on [facility] 01/08/22 at 2000, Until Discontinu ed, Routine QUEtiapine 0 2021- No 25mg 25 mg, Univ ers (SEROQUEL) 01-08-16 Oral, ity of tablet 25 13:54: 14:00 ONCE, 1 [place] mg 00 :00 dose, On Medical [facility] Branch 01/08/22 at 0900, Routine acetylcyste 0 Yes 4mL 800 mg (4 U nivers ine 6-15 mL), ity of (MUCOMYST) 23:00: Inhalation [place] 200 mg/mL 00 , Q6H, Medical (20 %) First dose Branch solution on Wed 800 mg 01/07/22 at 1800, Until Discontinu ed, Routine FENTanyl PF 2021- No 100ug 100 mcg, Univers (SUBLIMAZE 01-07-15 Slow IV ity o f (PF)) 20:15: 19:05 Push, [place] injection 00 :00 ONCE, 1 Medical 100 mcg dose, On Branch Wed01/07/22 at 1515, Routine busPIRone Yes 5mg 5 mg, Univers (BUSPAR) 6-15 Enteral, ity of tablet 5 mg 18:00: BID, First [place] 00 dose on Medical Wed Branch 01/07/22 at 1300, Until Discontinu ed, Routine haloperidol Yes 2mg 2 mg, Slow Univers lactate 615 IV Push, ity of (HALDOL) 17:41: Q4HPRN, [place] injection 2 00 Starting Medi michel mg on Wed Branch 01/07/22 at 1241, Until Discontinu ed, Routine, Agitation furosemide 2021- No 40mg 40 mg, Univ ers (LASIX) 01-07-16 Slow IV ity of injection 17:00: 10:59 Push, Q6H, [place] 40 mg 00 :00 3 doses, Medical First dose Branch (after last modificati on) on Wed01/07/22 at 1200, Last dose on [place]ay[place] 01/08/22 at 0000, Routine propofoL IV Yes 5ug/kg/ 5-50 Uni vers infusion 6-14 min mcg/kg/min ity o f 21:35: ?104.3 kg [place] 37 (3.129-31. Medical 29 mL/hr, Branch rounded to 3.13-31.29 mL/hr), IV Infusion, TITRATE, Sedation-R ASS score (-1 to -2), Starting on Wed01/06/22 at 1635
In itiate infusion at 5 mcg/kg/min and titrate by 5 mcg/kg/min every 30 seconds to 10 minutes to goal sedation score. Maximum dose = 50 mcg/kg/min . If goal not maintained at maximum allowed dose, contact prescriber . &nbs p;Tubing and unused portions of vials should be discarded after 12 hours.
furosemide 2021- No 40mg 40 mg, Univ ers (LASIX) 01-06 Slow IV ity of injection 20:45: 15:02 Push, [place] 40 mg 00 :09 DAILY, Medical First dose Branch on Wed01/06/22 at 1545, Until Discontinu ed, Routine ceFEPIme No 1000mg 1,000 mg, U nivers (MAXIPIME) 01-06 IV ity of 1,000 mg in 19:00: 22:16 Piggyback, [place] NaCl 0.9% 00 :00 Q8H ABX, 4 Medi michel (NS) 50 mL doses, Branch MINI-BAG First dose on Wed01/06/22 at 1400, Last dose on Wed01/07/22 at 1400, Administer over 4 Hours, 50 mL
Reas on for Anti-Infec tive: Empiric Therapy for Suspected Infection< br>Empiric Therapy Site: Respirator y
Durat ion of therapy: 7 days sennosides- Yes 1{tbl} 1 tablet, Univers docusate 01-06 Oral, ity of sodium 18:45: DAILY, [place] (SENOKOT-S) 00 First dose Me dical 8.6-50 mg on Wed per tablet 01/06/22 at 1 tablet 1345, Until Discontinu ed, Routine polyethylen Yes 17g 17 g, [facility] [place] [facility] e glycol 01-06 Enteral, ity of 3350 powder 18:45: DAILY, [place] 17 g 00 First dose Medical on Wed Branch 01/06/22 at 1345, Until Discontinu ed, Routine propofoL IV 2021- No 5ug/kg/ 5-50 Un alexia infusion 01-06-14 min mcg/kg/min ity of 01:12: 18:02 ?104.3 kg [place] 34 :29 (3.129-31. Medical 29 mL/hr, Branch rounded to 3.13-31.29 mL/hr), IV Infusion, TITRATE, Sedation-R ASS score (-1 to -2), Starting on Wed01/05/22 at 2011
In itiate infusion at 5 mcg/kg/min and titrate by 5 mcg/kg/min every 30 seconds to 10 minutes to goal sedation score. Maximum dose = 50 mcg/kg/min . If goal not maintained at maximum allowed dose, contact prescriber . &nbs p;Tubing and unused portions of vials should be discarded after 12 hours.
pantoprazol Yes 40mg 40 mg, Univ ers e 6-14 Slow IV ity of (PROTONIX) 01:00: Push, [place] injection 00 Q12H, Medical 40 mg First dose Branch on Wed01/05/22 at 2000, Until Discontinu ed morpHINE (2 Yes 2mg 2 mg, Slow Univers mg/mL) 01-05 IV Push, ity of injection 2 19:16: Q6HPRN, [place] mg 47 Starting Medical on [facility] Branch 01/05/22 at 1416, Until Discontinu ed, Routine, Pain (scale 7-10) potassium 2021- No 20meq 20 mEq, IV Univers chloride 20 01-04 Piggyback, i ty of mEq/100 mL 15:00: 18:20 Q2H, 2 [place] (KCL) 20 00 :00 doses, Medical mEq/100 mL First dose [facility] RTU IVPB 20 on [place] mEq 01/04/22 at 1000, Last dose on [place] 01/04/22 at 1200, 100 mL insulin No 10U 10 Units, [facility] [place] [facility] ers glargine 01-04 Subcutaneo ity of (LANTUS 14:00: 15:09 us, DAILY, [place] U-100) 00 :45 First dose Medical injection (after Branch 10 Units last modificati on) on [place] 01/04/22 at 0900, Until Discontinu ed, Routine metoprolol 2021- No 5mg 5 mg, Slow Univers (LOPRESSOR) 01-04 IV Push, ity of injection 5 13:45: 17:13 BID, First [place] mg 00 :45 dose on Medical [place] Branch 01/04/22 at 0845, Until Discontinu ed, Routine QUEtiapine 2021- No 25mg 25 mg, Univ ers (SEROQUEL) 01-04-16 Oral, BID, it y of tablet 25 13:45: 13:55 First dose [place] mg 00 :32 (after Medical last Branch modificati on) on [place] 01/04/22 at 0845, Until Discontinu ed, Routine iopamidol 2021- No [id number] 100mL 100 mL, Univers (ISOVUE 01-04 Intravenou ity o f 370-500 mL) 10:15: 08:55 s, ONCE, 1 [place] injection 00 :00 dose, On Medica l 100 mL [facility] 01/04/22 at 0515, Routine propofoL IV 2021- No 5ug/kg/ 5-50 Un alexia infusion 01-03 min mcg/kg/min ity of 21:04: 21:03 ?104.3 kg [place] 20 :20 (3.129-31. Medical 29 mL/hr, Branch rounded to 3.13-31.29 mL/hr), IV Infusion, TITRATE, Sedation-R ASS score (-1 to -2), Starting on [facility] 01/03/22 at 1604, For 2 days
In itiate infusion at 5 mcg/kg/min and titrate by 5 mcg/kg/min every 30 seconds to 10 minutes to goal sedation score. Maximum dose = 50 mcg/kg/min . If goal not maintained at maximum allowed dose, contact prescriber . &nbs p;Tubing and unused portions of vials should be discarded after 12 hours.
proMETHazin Yes 25mg 25 mg, IV U nivers e 01-03 Piggyback, ity of (PHENERGAN) 20:46: at 200 [place] 25 mg in NS 00 mL/hr Medical 50 mL IV Administer Branc h piggyback over 15 (CNR) Minutes, Q8HPRN, Starting on [facility] [place] 01/03/22 at 1546, Until Discontinu ed, Routine, Nausea and Vomiting (N/V) pregabalin Yes 100mg 100 mg, Uni vers (LYRICA) 01-03 Enteral, ity of capsule 100 19:45: TID, First [place] mg 00 dose on Medical [facility] [place] Branch 01/03/22 at 1445, Until Discontinu ed, Routine insulin 2021- No 10U 10 Units, Univ ers glargine 6-11 06-11 Subcutaneo ity of (LANTUS 19:37: 21:33 us, ONCE, [place] U-100) 00 :00 1 dose, On Medical injection Sat Branch 10 Units 01/03/22 at 1445, Routine furosemide No 40mg 40 mg, Univ ers (LASIX) 01-03 Slow IV ity of injection 19:32: 21:17 Push, [place] 40 mg 00 :00 ONCE, 1 Medical dose, On Branch 01/03/22 at 1445, Routine FENTanyl PF No 50ug 50 mcg, Un alexia (SUBLIMAZE 01-03 Slow IV ity o f (PF)) 19:30: 19:24 Push, [place] injection 00 :00 ONCE, 1 Medical 50 mcg dose, On Branch 01/03/22 at 1430, Routine ondansetron Yes 4mg 4 mg, Slow Univers (ZOFRAN 01-03 IV Push, ity of (PF)) 18:00: Q8HPRN, [place] injection 4 34 Nausea and Me dical mg Vomiting Branch (N/V), Starting on 01/03/22 at 1300
Do ses of ondansetro n 16 mg and above need to be administer ed via IV piggyback. For Dose >=24mg ECG monitoring is advisable.
insulin No 30U 30 Units, Univ ers glargine 01-03 Subcutaneo ity of (LANTUS 14:00: 19:37 us, DAILY, [place] U-100) 00 :17 First dose Medical injection (after Branch 30 Units last modificati on) on 01/03/22 at 0900, Until Discontinu ed, Routine HYDROmorpho 2021- No .5mg 0.5 mg, Un alexia ne 01-03 Slow IV ity of (DILAUDID) 06:34: 06:33 Push, [place] injection 00 :00 Q2HPRN, Medical 0.5 mg Starting Branch on 01/03/22 at 0134, Until 01/05/22 at 0133, Routine, Pain (scale 4-6)
Us e approved by (Faculty): [facility] famotidine Yes 20mg 20 mg, Unive rs (PEPCID 01-03 Slow IV ity of (PF)) 03:00: Push, [place] injection 00 Q12H, Medical 20 mg First dose Branch on Wed01/02/22 at 2200, Until Discontinu ed, Routine propofoL IV 2021- No 5ug/kg/ 5-50 Un alexia infusion 01-0211 min mcg/kg/min ity of 22:07: 21:04 ?104.3 kg [place] 53 :48 (3.129-31. Medical 29 mL/hr, Branch rounded to 3.13-31.29 mL/hr), IV Infusion, TITRATE, Sedation-R ASS score (-1 to -2), Starting on Wed01/02/22 at 1707
In itiate infusion at 5 mcg/kg/min and titrate by 5 mcg/kg/min every 30 seconds to 10 minutes to goal sedation score. Maximum dose = 50 mcg/kg/min . If goal not maintained at maximum allowed dose, contact prescriber . &nbs p;Tubing and unused portions of vials should be discarded after 12 hours.
FENTanyl PF 2021- No 100ug 100 mcg, Univers (SUBLIMAZE 01-02 Slow IV ity o f (PF)) 19:24: 19:34 Push, [place] injection 00 :00 ONCE, 1 Medical 100 mcg dose, On Branch Wed01/02/22 at 1430, Routine meropenem 2021- No 1000mg 1,000 mg, Univers (MERREM) 01-0214 IV ity of 1,000 mg in 19:00: [facility] [place] NaCl 0.9% 00 :06 Q8H ABX, Medica l (NS) 50 mL First dose Bra nch MINI-BAG on Wed01/02/22 at 1400, Until Discontinu ed, Administer over 3 Hours, 50 mL
Rest ricted use approved by: CLC4C
[place] for Anti-Infec tive: Empiric Therapy for Suspected Infection< br>Empiric Therapy Site: Respirator y
Durat ion of therapy: 72 hours Sliding Yes Subcutaneo [facility] [place] [facility] ers Scale 6-10 us, Q6H, ity of Insulin-Reg 17:00: First dose [place] ular + Fsbg 00 on Wed Medica l Testing 01/02/22 at Branch 1200, Until Discontinu ed, Routine dexMEDEtomi 2021-2021- No .2ug/kg 0.2-1.5 Univers dine 400 01-02 06-19 /h mcg/kg/hr ity o f mcg in 0.9 16:02: 17:13 ?104.3 kg [place] % NaCl 100 43 :45 (5.215-39. Med ical mL 1125 Branch (PRECEDEX) mL/hr, RTU IV rounded to infusion 5.22-39.11 mL/hr), IV Infusion, TITRATE, Sedation-R ASS score (0 to -1), Starting on Wed01/02/22 at 1102
In itiate infusion at 0.2 mcg/kg/hr and titrate by 0.1 mcg/kg/hr every 30 minutes to goal sedation score. Maximum dose = 1.5 mcg/kg/hr. If goal not maintained at maximum allowed dose, contact prescriber .
furosemide 2021- No 40mg 40 mg, [facility] [place] [facility] ers (LASIX) 01-02 06-10 Slow IV ity of injection 15:15: 14:43 Push, [place] 40 mg 00 :00 ONCE, 1 Medical dose, On Branch Wed01/02/22 at 1015, Routine glucagon Yes 1mg 1 mg, Univers (GLUCAGEN 01-02 Intramuscu ity of DIAGNOSTIC 14:10: lar, PRN, [place] KIT) 46 Starting Medical injection 1 on Wed Branch mg 01/02/22 at 0910, Until Discontinu ed, CT, Blood Glucose < or = 70 mg/dL and patient is unable to swallow or has mental changes. dextrose Yes 250mL 250 mL, IV Un alexia 10% (D10W) 610 Infusion, ity of bolus 14:10: PRN - SEE [place] infusion 46 INSTRUCTIO Medic al 250 mL NS, glu Branch below 70, Starting on Wed01/02/22 at 0910
De xtrose 10% 250 mL bag contains:& nbsp;10 gm = 100 mL 20 gm = 200 mL 25 gm = 250 mL (whole bag) The maximum rate at which dextrose can be infused without producing glycosuria is 0.5 g/kg/hour. &nbs p;BUD: If wrapper is open bag is good for 30 days at room temperatur e. <b r> ipratropium Yes 3mL 3 mL, Unive rs -albuteroL 01-02 Inhalation ity of (DUONEB) 13:00: , Q4H, [place] 0.5 mg-3 00 First dose Medic al mg(2.5 mg (after Branch base)/3 mL last nebulizer modificati solution 3 on) on Wed mL 01/02/22 at 0800, Until Discontinu ed, Routine heparin Yes 5000U 5,000 Univers (porcine) 10 Units, ity of injection 13:00: Subcutaneo [place] 5,000 Units 00 us, Q12H, Med ical First dose Branch on Wed01/02/22 at 0800, Until Discontinu ed, Routine insulin 2021- No 20U 20 Units, Univ ers glargine 01-02-10 Subcutaneo ity of (LANTUS 13:00: 14:11 us, BID, [place] U-100) 00 :23 First dose Medical injection on Wed Branch 20 Units 01/02/22 at 0800, Until Discontinu ed, Routine albuterol 2021- No 2.5mg 2.5 mg, Uni vers (PROVENTIL) 01-02 Inhalation i ty of 2.5 mg /3 12:30: 01:18 , Q6H, [place] mL (0.083 00 :50 First dose Medi michel %) on Wed Branch nebulizer 01/02/22 at solution 0730, 2.5 mg Until Discontinu ed, Routine acetylcyste 2021- No 4mL 800 mg (4 Univers ine 01-02 mL), ity of (MUCOMYST) 12:30: 19:38 Inhalation [place] 200 mg/mL 00 :09 , Q6H, Medical (20 %) First dose Branch solution on Wed 800 mg 01/02/22 at 0730, Until Discontinu ed, Routine acetylcyste No 4mL 800 mg (4 Univers ine 01-02 mL), ity of (MUCOMYST) 12:30: 14:11 Inhalation [place] 200 mg/mL 00 :23 , Q6H, Medical (20 %) First dose Branch solution on Wed 800 mg 01/02/22 at 0730, Until Discontinu ed, Routine vancomycin 2021- No 15mg/kg 1,500 mg Univers 1500 mg in 01-02 (rounded ity of NS 500 mL 12:00: 14:27 from [place] IV 00 :44 1,564.5 mg Medical Piggyback = 15 mg/kg Bran RTU 1,500 ?104.3 mg kg), IV Piggyback, Q24H ABX, First dose on Wed01/02/22 at 0700, Until Discontinu ed, Administer over 90 Minutes
Reason for Anti-Infec tive: Empiric Therapy for Suspected Infection< br>Empiric Therapy Site: Respirator y
Durat ion of therapy: 72 hours sodium No 100meq 100 mEq, Univ ers bicarbonate 01-02 Slow IV ity of 1 mEq/mL 11:45: 09:45 [facility], [place] (8.4 %) 00 :00 ONCE, 1 Medical injection dose, On Branch 100 mEq Wed01/02/22 at 0645, Routine meropenem 2021- No 1000mg 1,000 mg, Univers (MERREM) 01-02 IV ity of 1,000 mg in 11:15: 12:44 Piggyback, [place] NaCl 0.9% 00 :00 ONCE, 1 Medical (NS) 50 mL dose, On Branc h MINI-BAG Wed01/02/22 at 0615, Administer over 30 Minutes, 50 mL
Rest ricted use approved by: CLC4C
[place] for Anti-Infec tive: Empiric Therapy for Suspected Infection< br>Empiric Therapy Site: Respirator y
Durat ion of therapy: 72 hours dexMEDEtomi 2021- No .2ug/kg 0.2-1.5 Univers dine 200 01-02 /h mcg/kg/hr ity o f mcg in 0.9 11:04: 16:03 ?104.3 kg [place] % NaCl 50 39 :16 (5.215-39. Medi michel mL 1125 Branch (PRECEDEX) mL/hr, RTU IV rounded to infusion 5.22-39.11 mL/hr), IV Infusion, TITRATE, Sedation-R ASS score (0 to -1), Starting on Wed01/02/22 at 0604
In itiate infusion at 0.2 mcg/kg/hr and titrate by 0.1 mcg/kg/hr every 30 minutes to goal sedation score. Maximum dose = 1.5 mcg/kg/hr. If goal not maintained at maximum allowed dose, contact prescriber .
haloperidol 2021- No 5mg 5 mg, Univ ers lactate 01-02 Intramuscu ity o f (HALDOL) 11:00: 09:40 lar, ONCE, [place] injection 5 00 :00 1 dose, On Me dical mg Wed Branch 01/02/22 at 0600, Routine gentamicin 2021- No 80mg 80 mg, IV U nivers in NS 80 01-02 Piggyback, ity of mg/100 mL 10:00: 13:04 ONCE, 1 [place] RTU IV 00 :00 dose, On Medical piggyback Wed Branch 80 mg 01/02/22 at 0500, Administer over 30 Minutes, 100 mL
R [place] for Anti-Infec tive: Documented Infection< br>Documen alden Infection Site: Respirator y
Durat ion of Therapy: 7 days ondansetron 2021- No 4mg 4 mg, Slow Univers (ZOFRAN 01-02 IV Push, ity of (PF)) 09:00: 07:59 ONCE, 1 [place] injection 4 00 :00 dose, On Medi michel mg Wed Branch 01/02/22 at 0400, CT LORazepam 2021-2021- No .5mg 0.5 mg, Univ ers (ATIVAN) 01-02 Slow IV ity of injection 08:10: 08:11 Push, [place] 0.5 mg 00 :00 ONCE, 1 Medical dose, On Branch 01/02/22 at 0315, STAT ceFEPIme No 1g 1 g, IV Unive rs (MAXIPIME) 01-02 Piggyback, it y of 1 g in NaCl 06:30: 07:42 ONCE, 1 [place] 0.9% (NS) 00 :00 dose, On Medica l 100 mL Fri [place] MINI-BAG 01/02/22 at 0130, Administer over 30 Minutes, 100 mL
Reas on for Anti-Infec tive: Empiric Therapy for Suspected Infection< br>Empiric Therapy Site: Respirator y
Durat ion of therapy: 72 hours azithromyci No 500mg 500 mg, IV Univers n 01-02 Piggyback, ity of (ZITHROMAX) 06:30: 05:42 ONCE, 1 [place] injection 00 :00 dose, On Medica l 500 mg Fri Branch 01/02/22 at 0130, STAT
Re ason for Anti-Infec tive: Documented Infection< br>Documen alden Infection Site: Respirator y
Durat ion of Therapy: Other (see Comments) ondansetron No 4mg 4 mg, Slow Univers (ZOFRAN 12-09 IV Push, ity of (PF)) 05:45: 04:41 ONCE, 1 [place] injection 4 00 :00 dose, On Medi michel mg [facility] Branch 12/09/21 at 0045, CT morpHINE (4 No 4mg 4 mg, Slow Univers mg/mL) 12-09 IV Push, ity of injection 4 05:45: 04:41 ONCE, 1 [place] mg 00 :00 dose, On Medical [facility] Branch 12/09/21 at 0045, STAT levalbutero No 1.25mg 1.25 mg, Univers l (XOPENEX) 12-09 Inhalation i ty of nebulizer 05:00: 04:22 , ONCE, 1 [place] solution 00 :00 dose, On Medical 1.25 mg [facility] Branch 12/09/21 at 0000, Routine predniSONE 0 2021- No [id number] 40mg Take 2 Univers 20 mg 3-08 28-06 tablets by ity of tablet 00:00: 05:59 mouth [place] 00 :00 daily for Medical 3 days. Branch predniSONE 2021-0 2021- No [id number] 40mg Take 2 Univers 20 mg 3-02 03-06 tablets by ity of tablet 00:00: 05:59 mouth [place] 00 :00 daily for Medical 3 days. Branch HYDROcodone Yes 1{tbl} Take 1 Un alexia -acetaminop 3-01 tablet by ity of hen 10-325 15:03: mouth [place] mg tablet 49 every 8 Medical (eight) Branch hours as needed. cyclobenzap Yes 10mg Take 10 mg Univers rine 5 mg 3-01 by mouth 3 ity of tablet 15:03: (three) [place] 49 times Medical daily. Branch LORazepam Yes .5mg Take 0.5 Univ ers 0.5 mg 3-01 mg by ity of tablet 15:03: mouth 2 [place] 49 (two) Medical times Branch daily as needed. Potassium Yes Take by Unive rs Gluconate 3-01 mouth ity of 595 mg (99 15:03: weekly. [place] mg) Tab 49 Medical Branch ipratropium Yes 1{ampul 1 Ampule Univers -albuterol 3-01 e} every 4 ity of 0.5 mg-3 15:03: (four) [place] mg(2.5 mg 49 hours as Medica l base)/3 mL needed for [facility] nebulizer Wheezing. solution spironolact Yes 25mg Take 25 mg Univers one 25 mg 3-01 by mouth 2 ity of tablet 15:03: (two) [place] 49 times Medical daily. Branch semaglutide Yes inject Univ ers (OZEMPIC) 3-01 under the ity o f 0.25 mg or 15:03: skin. [place] 0.5 mg(2 49 Medical mg/1.5 mL) Branch PnIj dulaglutide Yes Trulicity U nivers (TRULICITY) 3-01 3 mg/0.5 ity of 3 mg/0.5 mL 15:03: mL [place] PnIj 49 subcutaneo Medical us pen Branch injector metFORMIN 2021-0 Yes 750mg Take 750 Uni vers 500 mg 24 3-01 mg by ity of hr tablet 15:03: mouth [place] 49 daily with Medical breakfast. Branch HYDROcodone Yes 1{tbl} Take 1 Un alexia -acetaminop 3-01 tablet by ity of hen 10-325 15:03: mouth [place] mg tablet 49 every 8 Medical (eight) Branch hours as needed. cyclobenzap Yes 10mg Take 10 mg Univers rine 5 mg 3-01 by mouth 3 ity of tablet 15:03: (three) [place] 49 times Medical daily. Branch LORazepam Yes .5mg Take 0.5 Univ ers 0.5 mg 3-01 mg by ity of tablet 15:03: mouth 2 [place] 49 (two) Medical times Branch daily as needed. Potassium Yes Take by Unive rs Gluconate 3-01 mouth ity of 595 mg (99 15:03: weekly. [place] mg) Tab 49 Medical Branch ipratropium Yes 1{ampul 1 Ampule Univers -albuterol 3-01 e} every 4 ity of 0.5 mg-3 15:03: (four) [place] mg(2.5 mg 49 hours as Medica l base)/3 mL needed for [facility] nebulizer Wheezing. solution spironolact Yes 25mg Take 25 mg Univers one 25 mg 3-01 by mouth 2 ity of tablet 15:03: (two) [place] 49 times Medical daily. Branch semaglutide Yes inject Univ ers (OZEMPIC) 3-01 under the ity o f 0.25 mg or 15:03: skin. [place] 0.5 mg(2 49 Medical mg/1.5 mL) Branch PnIj dulaglutide Yes Trulicity U nivers (TRULICITY) 3-01 3 mg/0.5 ity of 3 mg/0.5 mL 15:03: mL [place] PnIj 49 subcutaneo Medical us pen Branch injector metFORMIN 0 Yes 750mg Take 750 Uni vers 500 mg 24 3-01 mg by ity of hr tablet 15:03: mouth [place] 49 daily with Medical breakfast. Branch HYDROcodone 2022-0 Yes 1{tbl} Take 1 Un alexia -acetaminop 3-01 tablet by ity of hen 10-325 15:03: mouth [place] mg tablet 49 every 8 Medical (eight) Branch hours as needed. cyclobenzap Yes 10mg Take 10 mg Univers rine 5 mg 3-01 by mouth 3 ity of tablet 15:03: (three) [place] 49 times Medical daily. Branch LORazepam Yes .5mg Take 0.5 Univ ers 0.5 mg 3-01 mg by ity of tablet 15:03: mouth 2 [place] 49 (two) Medical times Branch daily as needed. Potassium Yes Take by Unive rs Gluconate 3-01 mouth ity of 595 mg (99 15:03: weekly. [place] mg) Tab 49 Medical Branch ipratropium 0 Yes 1{ampul 1 Ampule Univers -albuterol 3-01 e} every 4 ity of 0.5 mg-3 15:03: (four) [place] mg(2.5 mg 49 hours as Medica l base)/3 mL needed for [facility] nebulizer Wheezing. solution spironolact Yes 25mg Take 25 mg Univers one 25 mg 3-01 by mouth 2 ity of tablet 15:03: (two) [place] 49 times Medical daily. Branch semaglutide Yes inject Univ ers (OZEMPIC) 09-23 under the ity o f 0.25 mg or 15:03: skin. [place] 0.5 mg(2 49 Medical mg/1.5 mL) Branch PnIj dulaglutide Yes Trulicity U nivers (TRULICITY) 3- 3 mg/0.5 ity of 3 mg/0.5 mL 15:03: mL [place] PnIj 49 subcutaneo Medical pen Branch injector metFORMIN 2021-0 Yes 750mg Take 750 Uni vers 500 mg 24 3-01 mg by ity of hr tablet 15:03: mouth [place] 49 daily with Medical breakfast. Branch polyethylen Yes 17g 17 g, Unive rs e glycol 3-01 Oral, BID, ity o f 3350 powder 14:15: First dose [place] 17 g 00 on Tu Medical 09/23/21 at Branch 0815, Until Discontinu ed, Routine proCHLORper No 5mg 5 mg, IV U nivers azine 09-23 Piggyback, ity of (COMPAZINE) 13:00: 12:33 ONCE, 1 [place] 5 mg in 00 :00 dose, On Medical NaCl 0.9% Wed09/23/21 Bran ch (NS) at 0700, piggyback 50 mL ondansetron No 8mg Take 8 mg Univers 8 mg tablet 09-23 by mouth ity of 12:53: 00:00 every 8 [place] 19 :00 (eight) Medical hours as Branch needed. ondansetron No 4mg 4 mg, Slow Univers (ZOFRAN 09-23 IV Push, ity of (PF)) 10:00: 09:12 ONCE, 1 [place] injection 4 00 :00 dose, On Medi michel mg [facility] 09/23/21 Branch at 0400, Routine ondansetron Yes 4mg 4 mg, Slow Univers (ZOFRAN 09-23 IV Push, ity of (PF)) 04:25: Q6HPRN, [place] injection 4 51 Starting Medi michel mg on Wed Branch 09/22/21 at 2225, Until Discontinu ed, Routine, Nausea and Vomiting (N/V) insulin Yes 60U 60 Units, Unive rs glargine 09-23 Subcutaneo ity o f (LANTUS 03:00: us, Q, [place] U-100) 00 First dose Medical injection on Wed Branch 60 Units 09/22/21 at 2100, Until Discontinu ed, Routine Sliding Yes Subcutaneo Univ ers Scale 3- us, Q4H, ity of Insulin - 02:45: First dose [place] Lispro 00 (after Medical (HumaLOG) + last Branch Fsbg modificati Testing on) on Wed09/22/21 at 2045, Until Discontinu ed, Routine azithromyci 2021- No [id number] 250mg Take 1 Univers n 09-23-06 tablet by ity of (ZITHROMAX 00:00: 05:59 mouth [place] Z-ULYSSES) 250 00 :00 daily for Medi michel mg tablet 4 days. Branch azithromyci 2021- No [id number] 250mg Take 1 Univers n 09-23 03-06 tablet by ity of (ZITHROMAX 00:00: 05:59 mouth [place] Z-ULYSSES) 250 00 :00 daily for Medi michel mg tablet 4 days. Wanda cyclobenzap Yes 5mg 5 mg, Unive rs rine 09-22 Oral, ity of (FLEXERIL) 23:04: TIDPRN, [place] tablet 5 mg 26 Starting Medi michel on Wed Branch 09/22/21 at 1704, Until Discontinu ed, Routine, Muscle Spasms Sliding 2021- No Subcutaneo Uni vers Scale 09-22 , TID ity of Insulin - 23:00: 02:39 MEALS+HS, [place] Lispro 00 :34 First dose Medical (HumaLOG) + on Wed [place]anda Fsbg 09/22/21 at Testing 1700, Until Discontinu ed, Routine dextrose Yes 250mL 250 mL, IV Un alexia 10% (D10W) 09-22 Infusion, ity of bolus 20:39: PRN - SEE [place] infusion 11 INSTRUCTIO Medic al 250 mL NS, Branch altered mentation with hypoglycem ia glucose less than 80, Starting on Wed09/22/21 at 1439
De xtrose 10% 250 mL bag contains:& nbsp;10 gm = 100 mL&nbs p;20 gm = 200 mL 25 gm = 250 mL (whole bag) The maximum rate at which dextrose can be infused without producing glycosuria is 0.5 g/kg/hour. &nbs p;BUD: If wrapper is open bag is good for 30 days at room temperatur e. <b r> glucagon Yes 1mg 1 mg, Univers (GLUCAGEN 09-22 Intramuscu ity of DIAGNOSTIC 20:39: lar, PRN, [place] KIT) 06 Starting Medical injection 1 on Wed Branch mg 09/22/21 at 1439, Until Discontinu ed, CT, Blood Glucose < or = 70 mg/dL and patient is unable to swallow or has mental changes. sulfur 2021- No [id number] 5mL 5 mL, Univ ers hexafluorid 09-22 Intravenou i ty of e microsphr 18:45: 19:00 s, ONCE, 1 [place] (LUMASON) 00 :00 dose, On Medica l injection 5 Wed Branch mL 09/22/21 at 1300, Routine
nutrition faculty member approving Restricted medication : MARY GLORIA HYDROcodone Yes 1{tbl} 1 tablet, Univers -acetaminop 09-22 Oral, ity of hen (NORCO) 16:26: Q8HPRN, Compa as 10-325 mg 26 Starting Medica l tablet 1 on Wed tablet 09/22/21 at 1026, Until Discontinu ed, Routine, Pain (scale 4-6), Pain (scale 7-10) furosemide Yes 40mg 40 mg, Unive rs (LASIX) 09-22 Oral, ity of tablet 40 15:00: DAILY, [place] mg 00 First dose Medical on Wed Branch 09/22/21 at 0900, Until Discontinu ed, Routine predniSONE 2021- No 40mg 40 mg, Univ ers (DELTASONE) 09-22 03-05 Oral, ity of tablet 40 15:00: 14:59 DAILY, 5 [place]a as mg 00 :00 doses, Medical First dose Branch on Wed09/22/21 at 0900, Last dose on Wed09/26/21 at 0900, Routine albuterol Yes 2.5mg 2.5 mg, Univ ers (PROVENTIL) 09-22 Inhalation it y of 2.5 mg /3 14:00: , Q4H, [place] mL (0.083 00 First dose Medi michel %) on Wed Branch nebulizer 09/22/21 at solution 0800, 2.5 mg Until Discontinu ed, Routine heparin Yes 5000U 5,000 Univers (porcine) 09-22 Units, ity of injection 14:00: Subcutaneo [place] 5,000 Units 00 us, Q12H, Med ical First dose Branch on Wed09/22/21 at 0800, Until Discontinu ed, Routine Sliding 2021- No Subcutaneo Uni vers Scale 09-22 us, AC+HS, ity of Insulin-Reg 13:30: 19:17 First dose [place] ular + Fsbg 00 :38 on [facility] Medica l Testing 09/22/21 at Branch 0730, Until Discontinu ed, Routine nicotine Yes 1{patch 1 Patch, Un alexia (NICODERM) 09-22 } Topical, ity o f 7 mg/24 hr 13:00: Administer [place] patch 1 00 over 24 Medical Patch Hours, Branch Q24H, First dose on [facility] 09/22/21 at 0700, Until Discontinu ed, Routine pantoprazol Yes 40mg 40 mg, Univ ers e 09-22 Slow IV ity of (PROTONIX) 12:45: Push, [place] injection 00 Q24H, Medical 40 mg First dose Branch on [facility] 09/22/21 at 0645, Until Discontinu ed dextrose 50 Yes 25mL 25 mL, Univ ers % in water 09-22 Slow IV ity of (D50W) 11:14: Push, PRN, [place] injection 28 Starting Medica l 25 mL on [facility] 09/22/21 at 0514, Until Discontinu ed, CT, Blood Glucose < or = 70 mg/dL and patient is unable to swallow or has mental status changes. albuterol No 2.5mg 2.5 mg, Uni vers (PROVENTIL) 09-22 Inhalation i ty of 2.5 mg /3 07:45: 07:15 , ONCE, 1 [place] mL (0.083 00 :00 dose, On Medica l %) [facility] nebulizer 09/22/21 at solution 0145, CT 2.5 mg furosemide 2021- No 40mg 40 mg, IV U nivers (LASIX) 09-22 Push, ity of injection 07:30: 06:32 ONCE, 1 [place] 40 mg 00 :00 dose, On [facility] 09/22/21 at 0130, CT methylpredn 2021- No 125mg 125 mg, U nivers isolone sod 09-22 Slow IV ity of succ 07:30: 06:31 Push, ONCE [place] (SOLU-MEDRO 00 :00 NOW, 1 Medica l L) dose, On Branch injection Mon 125 mg 09/22/21 at 0130, CT albuterol 2.5mg 2.5 mg, Uni vers (PROVENTIL) 09-22 Inhalation i ty of 2.5 mg /3 07:30: 06:27 , ONCE, 1 [place] mL (0.083 00 :00 dose, On Medica l %) Mon Branch nebulizer 09/22/21 at solution 0130, CT 2.5 mg aspirin 2021- No 1{tbl} Take 1 Unive rs (ASPIR-81 09-22 tablet by ity of ORAL) 05:21: 00:00 mouth [place] 25 :00 daily. Medical Branch dulaglutide 2020-07 Yes Trulicity U nivers (TRULICITY) 2-29 3 mg/0.5 ity of 3 mg/0.5 mL 14:20: mL [place] PnIj 57 subcutaneo Medical pen Branch injector dulaglutide 2020-07 Yes Trulicity U nivers (TRULICITY) 2-29 3 mg/0.5 ity of 3 mg/0.5 mL 14:20: mL [place] PnIj 57 subcutaneo Medical pen Branch injector LORazepam 2020-07 Yes [id number] .5mg Take 1 Un alexia 0.5 mg 2-02 tablet by ity of tablet 00:00: mouth 3 [place] 00 (three) Medical times Branch daily as needed for Nausea and Vomiting (N/V). LORazepam 2020-07 Yes [id number] .5mg Take 1 Un alexia 0.5 mg 2-02 tablet by ity of tablet 00:00: mouth 3 [place] 00 (three) Medical times Branch daily as needed for Nausea and Vomiting (N/V). LORazepam 2020-07 No [id number] .5mg Take 1 U nivers 0.5 mg 2-02 03-01 tablet by ity of tablet 00:00: 00:00 mouth 3 [place] 00 :00 (three) Medical times Branch daily as needed for Nausea and Vomiting (N/V). spironolact 2018-07 Yes 25mg Take 25 mg Univers one 25 mg -06 by mouth 2 ity of tablet 08:30: (two) [place] 12 times Medical daily. Branch spironolact 2018-07 Yes 25mg Take 25 mg Univers one 25 mg 1-06 by mouth 2 ity of tablet 08:30: (two) [place] 12 times Medical daily. Branch aspirin 2018-07 Yes 1{tbl} Take 1 Univer s (ASPIR-81 1-06 tablet by ity o f ORAL) 08:29: mouth [place] 48 daily. Medical Branch aspirin 2018-07 Yes 1{tbl} Take 1 Univer s (ASPIR-81 1-06 tablet by ity o f ORAL) 08:29: mouth [place] 48 daily. Medical Branch ipratropium 2018-07 Yes 1{ampul 1 Ampule Univers -albuterol 1-06 e} every 4 ity of 0.5 mg-3 08:29: (four) [place] mg(2.5 mg 47 hours as Medica l base)/3 mL needed for Bra nch nebulizer Wheezing. solution ipratropium 2018-07 Yes 1{ampul 1 Ampule Univers -albuterol 1-06 e} every 4 ity of 0.5 mg-3 08:29: (four) [place] mg(2.5 mg 47 hours as Medica l base)/3 mL needed for Bra nch nebulizer Wheezing. solution nystatin 2018-07 Yes [id number] Apply to Un alexia 100,000 1-06 area(s) 2 ity of unit/gram 00:00: (two) [place] cream 00 times Medical daily. Branch nystatin 2018-07 Yes [id number] Apply to Un alexia 100,000 1-06 area(s) 2 ity of unit/gram 00:00: (two) [place] cream 00 times Medical daily. Branch nystatin 2018-07- No [id number] Apply to U nivers 100,000 1-06 03-01 area(s) 2 ity of unit/gram 00:00: 00:00 (two) [place] cream 00 :00 times Medical daily. Branch rosuvastati 2018-07 Yes TK 1 T PO U nivers n 10 mg 0-28 QD ity of tablet 00:00: [place] 00 [facility] rosuvastati 2018-07 Yes TK 1 T PO U nivers n 10 mg 0-28 QD ity of tablet 00:00: [place] 00 [facility] rosuvastati 2019-1 Yes TK 1 T PO U nivers n 10 mg 0-28 QD ity of tablet 00:00: [place] [facility] rosuvastati 2019- Yes TK 1 T PO U nivers n 10 mg 0-28 QD ity of tablet 00:00: [place] [facility] rosuvastati 2018-07 Yes TK 1 T PO U nivers n 10 mg 0-28 QD ity of tablet 00:00: [place] [facility] rosuvastati 2018-07 Yes TK 1 T PO U nivers n 10 mg 0-28 QD ity of tablet 00:00: [place] [facility] [facility] [place] rosuvastati 2018-07 Yes TK 1 T PO U nivers n 10 mg 0-28 QD ity of tablet 00:00: [address] rosuvastati 2018-07 Yes TK 1 T PO U nivers n 10 mg 0-28 QD ity of tablet 00:00: [address] rosuvastati 2018-07 Yes TK 1 T PO U nivers n 10 mg 0-28 QD ity of tablet 00:00: [place] [facility] [place] rosuvastati 2018- Yes TK 1 T PO U nivers n 10 mg 0-28 QD ity of tablet 00:00: [address] rosuvastati 2018-07 Yes TK 1 T PO U nivers n 10 mg 0-28 QD ity of tablet 00:00: [address] rosuvastati 2018- Yes TK 1 T PO U nivers n 10 mg 0-28 QD ity of tablet 00:00: [address] rosuvastati 2018-07 Yes TK 1 T PO U nivers n 10 mg 0-28 QD ity of tablet 00:00: [facility] [place] rosuvastati 2018- Yes TK 1 T PO U nivers n 10 mg 0-28 QD ity of tablet 00:00: [address] rosuvastati 2018- Yes TK 1 T PO U nivers n 10 mg 0-28 QD ity of tablet 00:00: [address] rosuvastati 2018-07 Yes TK 1 T PO U nivers n 10 mg 0-28 QD ity of tablet 00:00: [address] rosuvastati 2018- Yes TK 1 T PO U nivers n 10 mg 0-28 QD ity of tablet 00:00: [place] 00 [facility] rosuvastati 2018-07 Yes TK 1 T PO U nivers n 10 mg 0-28 QD ity of tablet 00:00: [facility] rosuvastati 2018-07 Yes TK 1 T PO U nivers n 10 mg 0-28 QD ity of tablet 00:00: [facility] rosuvastati 2018-07 Yes TK 1 T PO U nivers n 10 mg 0-28 QD ity of tablet 00:00: [facility] rosuvastati 2018-07 Yes TK 1 T PO U nivers n 10 mg 0-28 QD ity of tablet 00:00: [facility] rosuvastati 2018-07 Yes TK 1 T PO U nivers n 10 mg 0-28 QD ity of tablet 00:00: [facility] ofloxacin 2018-07 Yes INSTIL 2 Univ ers 0.3 % 0-21 GTS IN OS ity of ophthalmic 00:00: QID [place] solution 00 [facility] ofloxacin 2018-07 Yes INSTIL 2 Univ ers 0.3 % 0-21 GTS IN OS ity of ophthalmic 00:00: QID [place] solution 00 [facility] ofloxacin 2018- Yes INSTIL 2 Univ ers 0.3 % 0-21 GTS IN OS ity of ophthalmic 00:00: QID [place] solution 00 [facility] Branch ofloxacin 2018- Yes INSTIL 2 Univ ers 0.3 % 0-21 GTS IN OS ity of ophthalmic 00:00: QID [place] solution 00 [facility] ofloxacin 2018- Yes INSTIL 2 Univ ers 0.3 % 0-21 GTS IN OS ity of ophthalmic 00:00: QID [place] solution 00 [facility] Branch ofloxacin 2018- Yes INSTIL 2 Univ ers 0.3 % 0-21 GTS IN OS ity of ophthalmic 00:00: QID [place] solution 00 [facility] ofloxacin 2018- Yes INSTIL 2 Univ ers 0.3 % 0-21 GTS IN OS ity of ophthalmic 00:00: QID [place] solution 00 [facility] ofloxacin 2018- Yes INSTIL 2 Univ ers 0.3 % 0-21 GTS IN OS ity of ophthalmic 00:00: QID [place] solution 00 [facility] ofloxacin 2018- Yes INSTIL 2 Univ ers 0.3 % 0-21 GTS IN OS ity of ophthalmic 00:00: QID [place] solution 00 [facility] ofloxacin 2018-07- No INSTIL 2 Uni vers 0.3 % 0-21 07-09 GTS IN OS ity of ophthalmic 00:00: 00:00 QID [place] solution 00 :00 [facility] Branch furosemide 2018-07 Yes Univers 20 mg 0-09 ity of tablet 00:00: [place] 00 [facility] furosemide 2018-07 Yes Univers 20 mg 0-09 ity of tablet 00:00: [place] 00 [facility] furosemide 2018-07 Yes TK 1 T PO Un alexia 40 mg 0-09 QAM ity of tablet 00:00: [place] [facility] furosemide 2018-07 Yes TK 1 T PO Un alexia 40 mg 0-09 QAM ity of tablet 00:00: [place] 00 [facility] furosemide 2018-07 Yes Univers 20 mg 0-09 ity of tablet 00:00: [place] 00 [facility] furosemide 2018-07 Yes Univers 20 mg 0-09 ity of tablet 00:00: [place] 00 [facility] furosemide 2018-07 Yes Univers 20 mg 0-09 ity of tablet 00:00: [place] 00 [facility] furosemide 2018-07 Yes Univers 20 mg 0-09 ity of tablet 00:00: [place] 00 [facility] furosemide 2018-07 Yes Univers 20 mg 0-09 ity of tablet 00:00: [place] 00 [facility] furosemide 2018-07- No Univer s 20 mg 0-09 07-09 ity of tablet 00:00: 00:00 [place] 00 :00 Medical [facility] HYDROcodone Yes 1{tbl} Take 1 Un alexia -acetaminop 8-07 tablet by ity of hen 10-325 13:18: mouth [place] mg tablet 36 every 8 Medical (eight) Branch hours as needed. cyclobenzap Yes 10mg Take 10 mg Univers rine 5 mg 8-07 by mouth 3 ity of tablet 13:18: (three) [place] 36 times Medical daily. Branch LORazepam Yes .5mg Take 0.5 Univ ers 0.5 mg 8-07 mg by ity of tablet 13:18: mouth 2 [place] 36 (two) Medical times Branch daily as needed. Potassium Yes Take by Unive rs Gluconate 8-07 mouth ity of 595 mg (99 13:18: [place] mg[place] Tab 36 [facility] ondansetron Yes 8mg Take 8 mg U nivers 8 mg tablet 8-07 by mouth ity of 13:18: every 8 [place] 36 (eight) Medical hours as Branch needed. semaglutide Yes inject Univ ers (OZEMPIC) 8-07 under the ity o f 0.25 mg or 13:18: skin. [place] 0.5 mg(2 36 Medical mg/1.5 mL) Branch PnIj HYDROcodone 2018- Yes 1{tbl} Take 1 Un alexia -acetaminop 8-07 tablet by ity of hen 10-325 13:18: mouth [place] mg tablet 36 every 8 Medical (eight) Branch hours as needed. cyclobenzap Yes 10mg Take 10 mg Univers rine 5 mg 8-07 by mouth 3 ity of tablet 13:18: (three) [place] 36 times Medical daily. Branch LORazepam Yes .5mg Take 0.5 Univ ers 0.5 mg 8-07 mg by ity of tablet 13:18: mouth 2 [place] 36 (two) Medical times Branch daily as needed. Potassium Yes Take by Unive rs Gluconate 8-07 mouth ity of 595 mg (99 13:18: [place]. [place] mg[place] Tab 36 [facility] ondansetron Yes 8mg Take 8 mg U nivers 8 mg tablet 8-07 by mouth ity of 13:18: every 8 [place] 36 (eight) Medical hours as Branch needed. semaglutide Yes inject Univ ers (OZEMPIC) 8-07 under the ity o f 0.25 mg or 13:18: skin. [place] 0.5 mg(2 36 Medical mg/1.5 mL) Branch PnIj fluconazole Yes [id number] 100mg Take 1 Univers 100 mg 3-26 tablet by ity of tablet 00:00: mouth [place] 00 daily. Medical Branch fluconazole Yes [id number] 100mg Take 1 Univers 100 mg 3-26 tablet by ity of tablet 00:00: mouth [place] 00 daily. Medical Branch fluconazole Yes [id number] 100mg Take 1 [facility] 100 mg 3-26 tablet by ity of tablet 00:00: mouth [place] 00 daily. Medical Branch fluconazole Yes [id number] 100mg Take 1 [facility] 100 mg 3-26 tablet by ity of tablet 00:00: mouth [place] 00 daily. Medical Branch fluconazole 2018-0 Yes [id number] 100mg Take 1 [facility] 100 mg 3-26 tablet by ity of tablet 00:00: mouth [place] 00 daily. Medical Branch fluconazole 2019-0 Yes [id number] 100mg Take 1 [facility] 100 mg 3-26 tablet by ity of tablet 00:00: mouth [place] 00 daily. Medical Branch fluconazole 2019- Yes [id number] 100mg Take 1 [facility] 100 mg 3-26 tablet by ity of tablet 00:00: mouth [place] 00 daily. Medical Branch fluconazole 2019-0 Yes [id number] 100mg Take 1 [facility] 100 mg 3-26 tablet by ity of tablet 00:00: mouth [place] 00 daily. Medical Branch fluconazole 2019-0 Yes [id number] 100mg Take 1 [facility] 100 mg 3-26 tablet by ity of tablet 00:00: mouth [place] 00 daily. Medical Branch fluconazole 2018-2021- No [id number] 100mg Take 1 [facility] 100 mg 3-26 07-09 tablet by ity of tablet 00:00: 00:00 mouth [place] 00 :00 daily. Medical Branch CLOTRIMAZOL 2017- Yes APPLY TO Un alexia E 1 % 0-11 THE ity of topical 00:00: AFFECTED [place] cream 00 AREA TWICE Medical DAILY Branch CLOTRIMAZOL 2017- Yes APPLY TO Un alexia E 1 % 0-11 THE ity of topical 00:00: AFFECTED [place] cream 00 AREA TWICE Medical DAILY Branch CLOTRIMAZOL 2017-2021- No APPLY TO U nivers E 1 % 0-11 03-01 THE ity of topical 00:00: 00:00 AFFECTED [place] cream 00 :00 AREA TWICE Medical DAILY Branch Clotrimazol 2018-0 Yes 1mL 1 mL 3 Univ ers e, Bulk, 6-08 (three) ity of Powd 00:00: times [place] 00 daily. Medical Branch Clotrimazol 2018-0 Yes 1mL 1 mL 3 Univ ers e, Bulk, 6-08 (three) ity of Powd 00:00: times [place] 00 daily. Medical Branch Clotrimazol 2018-0 Yes 1mL 1 mL 3 Univ ers e, Bulk, 6-08 (three) ity of Powd 00:00: times [place] 00 daily. Medical Branch Clotrimazol 2018-0 Yes 1mL 1 mL 3 Univ ers e, Bulk, 6-08 (three) ity of Powd 00:00: times [place] 00 daily. Medical Branch Clotrimazol 2018-0 Yes 1mL 1 mL 3 Univ ers e, Bulk, 6-08 (three) ity of Powd 00:00: times [place] 00 daily. Medical Branch Clotrimazol 2018-0 Yes 1mL 1 mL 3 Univ ers e, Bulk, 6-08 (three) ity of Powd 00:00: times [place] 00 daily. Medical Branch Clotrimazol 2018-0 Yes 1mL 1 mL 3 Univ ers e, Bulk, 6-08 (three) ity of Powd 00:00: times [place] 00 daily. Medical Branch Clotrimazol 2018-0 Yes 1mL 1 mL 3 Univ ers e, Bulk, 6-08 (three) ity of Powd 00:00: times [place] 00 daily. Medical Branch Clotrimazol 2018-0 Yes 1mL 1 mL 3 Univ ers e, Bulk, 6-08 (three) ity of Powd 00:00: times [place] 00 daily. Medical Branch Clotrimazol 2018-0 Yes 1mL 1 mL 3 Univ ers e, Bulk, 6-08 (three) ity of Powd 00:00: times [place] 00 daily. Medical Branch Clotrimazol 2018-0 Yes 1mL 1 mL 3 Univ ers e, Bulk, 6-08 (three) ity of Powd 00:00: times [place] 00 daily. Medical Branch Clotrimazol 2018-0 Yes 1mL 1 mL 3 Univ ers e, Bulk, 6-08 (three) ity of Powd 00:00: times [place] 00 daily. Medical Branch Clotrimazol 2018-0 Yes 1mL 1 mL 3 Univ ers e, Bulk, 6-08 (three) ity of Powd 00:00: times [place] 00 daily. Medical Branch Clotrimazol 2018-0 Yes 1mL 1 mL 3 Univ ers e, Bulk, 6-08 (three) ity of Powd 00:00: times [place] 00 daily. Medical Branch Clotrimazol 2018-0 Yes 1mL 1 mL 3 Univ ers e, Bulk, 6-08 (three) ity of Powd 00:00: times [place] 00 daily. Medical Branch Clotrimazol 2018-0 Yes 1mL 1 mL 3 Univ ers e, Bulk, 6-08 (three) ity of Powd 00:00: times [place] 00 daily. Medical Branch Clotrimazol 2018-0 Yes 1mL 1 mL 3 Univ ers e, Bulk, 6-08 (three) ity of Powd 00:00: times [place] 00 daily. Medical Branch Clotrimazol 2018-0 Yes 1mL 1 mL 3 Univ ers e, Bulk, 6-08 (three) ity of Powd 00:00: times [place] 00 daily. Medical Branch Clotrimazol 2018-0 Yes 1mL 1 mL 3 Univ ers e, Bulk, 6-08 (three) ity of Powd 00:00: times [place] 00 daily. Medical Branch Clotrimazol 2018-0 2023- No 1mL 1 mL 3 Uni vers e, Bulk, 6-02 23-16 (three) ity of Powd 00:00: 00:00 times [place] 00 :00 daily. Medical Branch HEMOCYTE-PL 2018-0 Yes Univer s US 106 mg 3-02 ity of iron- 1 mg 00:00: [place] Cap 00 Medical Branch HEMOCYTE-PL 2018-0 Yes Univer s US 106 mg 3-02 ity of iron- 1 mg 00:00: [place] Cap 00 Medical Branch HEMOCYTE-PL 2018-0 Yes Univer s US 106 mg 3-02 ity of iron- 1 mg 00:00: [place] Cap 00 Medical Branch HEMOCYTE-PL 2018-0 Yes Univer s US 106 mg 3-02 ity of iron- 1 mg 00:00: [place] Cap 00 Medical Branch HEMOCYTE-PL 2018-0 Yes Univer s US 106 mg 3-02 ity of iron- 1 mg 00:00: [place] Cap 00 Medical Branch HEMOCYTE-PL 2018-0 Yes Univer s US 106 mg 3-02 ity of iron- 1 mg 00:00: [place] Cap 00 Medical Branch HEMOCYTE-PL 2018-0 Yes Univer s US 106 mg 3-02 ity of iron- 1 mg 00:00: [place] Cap 00 Medical Branch HEMOCYTE-PL 2018-0 Yes Univer s US 106 mg 3-02 ity of iron- 1 mg 00:00: [place] Cap 00 Medical Branch HEMOCYTE-PL 2018-0 Yes Univer s US 106 mg 3-02 ity of iron- 1 mg 00:00: [place] Cap 00 Medical Branch HEMOCYTE-PL 2018-0 Yes Univer s US 106 mg 3-02 ity of iron- 1 mg 00:00: [place] Cap Medical Branch HEMOCYTE-PL 2018-0 Yes Univer s US 106 mg 3-02 ity of iron- 1 mg 00:00: [place] Cap Medical Branch HEMOCYTE-PL 2018-0 Yes Univer s US 106 mg 3-02 ity of iron- 1 mg 00:00: [place] Cap Medical Branch HEMOCYTE-PL 2018-0 Yes Univer s US 106 mg 3-02 ity of iron- 1 mg 00:00: [place] Cap Medical Branch HEMOCYTE-PL 2018-0 Yes Univer s US 106 mg 3-02 ity of iron- 1 mg 00:00: [place] Cap Medical Branch HEMOCYTE-PL 2018-0 Yes Univer s US 106 mg 3-02 ity of iron- 1 mg 00:00: [place] Cap Medical Branch HEMOCYTE-PL 2018-0 Yes Univer s US 106 mg 3-02 ity of iron- 1 mg 00:00: [place] Cap Medical [facility] HEMOCYTE-PL 2018-0 Yes Univer s US 106 mg 3-02 ity of iron- 1 mg 00:00: [place] Cap Medical Branch HEMOCYTE-PL 2018-0 Yes Univer s US 106 mg 3-02 ity of iron- 1 mg 00:00: [place] Cap [facility] HEMOCYTE-PL 2018-0 Yes Univer s US 106 mg 3-02 ity of iron- 1 mg 00:00: [place] Cap [facility] HEMOCYTE-PL 2018-0 Yes Univer s US 106 mg 3-02 ity of iron- 1 mg 00:00: [place] Cap [facility] HEMOCYTE-PL 2018-0 Yes Univer s US 106 mg 3-02 ity of iron- 1 mg 00:00: [place] Cap [facility] HEMOCYTE-PL 2018-0 Yes Univer s US 106 mg 3-02 ity of iron- 1 mg 00:00: [place] Cap Medical Branch paroxetine 2018-0 Yes Univers 40 mg 2-28 ity of tablet 00:00: [place] [facility] paroxetine 2018-0 Yes Univers 40 mg 2-28 ity of tablet 00:00: [place] [facility] paroxetine 2018-0 Yes Univers 40 mg 2-28 ity of tablet 00:00: [place] 00 Medical Branch paroxetine 2018-0 Yes Univers 40 mg 2-28 ity of tablet 00:00: [place] [address] Medical Branch paroxetine 2018-0 Yes Univers 40 mg 2-28 ity of tablet 00:00: [address] Branch paroxetine 2018-0 Yes Univers 40 mg 2-28 ity of tablet 00:00: [address] Branch paroxetine 2018-0 Yes Univers 40 mg 2-28 ity of tablet 00:00: [place] [address] Medical Branch paroxetine 2018-0 Yes Univers 40 mg 2-28 ity of tablet 00:00: [place] [address] Medical Branch paroxetine 2018-0 Yes Univers 40 mg 2-28 ity of tablet 00:00: [address] Branch paroxetine 2018-0 Yes Univers 40 mg 2-28 ity of tablet 00:00: [address] Branch paroxetine 2018-0 Yes Univers 40 mg 2-28 ity of tablet 00:00: [address] paroxetine 2018-0 Yes Univers 40 mg 2-28 ity of tablet 00:00: [address] paroxetine 2018-0 Yes Univers 40 mg 2-28 ity of tablet 00:00: [address] Branch paroxetine 2018-0 Yes Univers 40 mg 2-28 ity of tablet 00:00: [address] paroxetine 2018-0 Yes Univers 40 mg 2-28 ity of tablet 00:00: [address] Branch paroxetine 2018-0 Yes Univers 40 mg 2-28 ity of tablet 00:00: [address] paroxetine 2018-0 Yes Univers 40 mg 2-28 ity of tablet 00:00: [address] paroxetine 2018-0 Yes Univers 40 mg 2-28 ity of tablet 00:00: [address] Branch paroxetine 2018-0 Yes Univers 40 mg 2-28 ity of tablet 00:00: [address] paroxetine 2018-0 Yes Univers 40 mg 2-28 ity of tablet 00:00: [address] paroxetine 2018-0 Yes Univers 40 mg 2-28 ity of tablet 00:00: [address] paroxetine 2018-0 Yes Univers 40 mg 2-28 ity of tablet 00:00: [place] [address] Medical Wanda LEVEMIR 2018-0 Yes INJECT 5 Univer s FLEXTOUCH 1-09 UNITS SC ity of 100 unit/mL 00:00: [place] (3 mL) 00 Medical injection Branch LEVEMIR 0 Yes INJECT 5 Univer s FLEXTOUCH 1-09 UNITS SC ity of 100 unit/mL 00:00: QD [place] (3 mL) 00 Medical injection Branch LEVEMIR 0 Yes INJECT 5 Univer s FLEXTOUCH 1-09 UNITS SC ity of 100 unit/mL 00:00: QD [place] (3 mL) 00 Medical injection Branch LEVEMIR 0 Yes INJECT 5 Univer s FLEXTOUCH 1-09 UNITS SC ity of 100 unit/mL 00:00: QD [place] (3 mL) 00 Medical injection Branch LEVEMIR 0 Yes INJECT 5 Univer s FLEXTOUCH 1-09 UNITS SC ity of 100 unit/mL 00:00: QD [place] (3 mL) 00 Medical injection Branch LEVEMIR 0 Yes INJECT 5 Univer s FLEXTOUCH 1-09 UNITS SC ity of 100 unit/mL 00:00: QD [place] (3 mL) 00 Medical injection Branch LEVEMIR 0 Yes 60U 60 Units. Unive rs FLEXTOUCH 1-09 ity of 100 unit/mL 00:00: [place] (3 mL) 00 Medical injection Branch LEVEMIR 0 Yes 60U 60 Units. Unive rs FLEXTOUCH 1-09 ity of 100 unit/mL 00:00: [place] (3 mL) 00 Medical injection Branch LEVEMIR 0 Yes 60U 60 Units. Unive rs FLEXTOUCH 1-09 ity of 100 unit/mL 00:00: [place] (3 mL) 00 Medical injection Branch LEVEMIR 0 Yes 60U 60 Units. Unive rs FLEXTOUCH 1-09 ity of 100 unit/mL 00:00: [place] (3 mL) 00 Medical injection Branch LEVEMIR 0 Yes 60U 60 Units. Unive rs FLEXTOUCH 1-09 ity of 100 unit/mL 00:00: [place] (3 mL) 00 Medical injection Branch LEVEMIR 2017-0 Yes 60U 60 Units. Unive rs FLEXTOUCH 1-09 ity of 100 unit/mL 00:00: [place] (3 mL) 00 Medical injection Branch LEVEMIR 0 Yes 60U 60 Units. Unive rs FLEXTOUCH 1-09 ity of 100 unit/mL 00:00: [place] (3 mL) 00 Medical injection Branch LEVEMIR 0 Yes 60U 60 Units. Unive rs FLEXTOUCH 1-09 ity of 100 unit/mL 00:00: [place] (3 mL) 00 Medical injection Branch LEVEMIR 0 Yes 60U 60 Units. Unive rs FLEXTOUCH 1-09 ity of 100 unit/mL 00:00: [place] (3 mL) 00 Medical injection Branch LEVEMIR 0 Yes INJECT 5 Univer s FLEXTOUCH 1-09 UNITS SC ity of 100 unit/mL 00:00: QD [place] (3 mL) 00 Medical injection Branch LEVEMIR 0 Yes INJECT 5 Univer s FLEXTOUCH 1-09 UNITS SC ity of 100 unit/mL 00:00: QD [place] (3 mL) 00 Medical injection Branch LEVEMIR 0 Yes INJECT 5 Univer s FLEXTOUCH 1-09 UNITS SC ity of 100 unit/mL 00:00: QD [place] (3 mL) 00 Medical injection Branch LEVEMIR 0 Yes INJECT 5 Univer s FLEXTOUCH 1-09 UNITS SC ity of 100 unit/mL 00:00: QD [place] (3 mL) Medical injection Branch LEVEMIR 0 Yes INJECT 5 Univer s FLEXTOUCH 1-09 UNITS SC ity of 100 unit/mL 00:00: QD [place] (3 mL) 00 Medical injection Branch LEVEMIR 0 Yes INJECT 5 Univer s FLEXTOUCH 1-09 UNITS SC ity of 100 unit/mL 00:00: QD [place] (3 mL) 00 Medical injection Branch LEVEMIR 0 Yes INJECT 5 Univer s FLEXTOUCH 1-09 UNITS SC ity of 100 unit/mL 00:00: QD [place] (3 mL) 00 Medical injection Branch sodium 2017 Yes 4mL Inhale 4 [facility] chloride 3 1-14 mL 4 ity of % nebulizer 00:00: (four) [place] solution 00 times Medical daily. Branch sodium 2016-07 Yes 4mL Inhale 4 [facility] chloride 3 1-14 mL 4 ity of % nebulizer 00:00: (four) [place] solution 00 times Medical daily. Branch sodium 2016-07 Yes 4mL Inhale 4 [facility] chloride 3 1-14 mL 4 ity of % nebulizer 00:00: (four) [place] solution 00 times Medical daily. Branch sodium 2016-07 Yes 4mL Inhale 4 [facility] chloride 3 1-14 mL 4 ity of % nebulizer 00:00: (four) [place] solution 00 times Medical daily. Branch sodium 2016-07 Yes 4mL Inhale 4 [facility] chloride 3 1-14 mL 4 ity of % nebulizer 00:00: (four) [place] solution 00 times Medical daily. Branch sodium 2016-07 Yes 4mL Inhale 4 [facility] chloride 3 1-14 mL 4 ity of % nebulizer 00:00: (four) [place] solution 00 times Medical daily. Branch sodium 2016-07 Yes 4mL Inhale 4 [facility] chloride 3 1-14 mL 4 ity of % nebulizer 00:00: (four) [place] solution 00 times Medical daily. Branch sodium 2016-07 Yes 4mL Inhale 4 [facility] chloride 3 1-14 mL 4 ity of % nebulizer 00:00: (four) [place] solution 00 times Medical daily. Branch sodium 2016-07 Yes 4mL Inhale 4 [facility] chloride 3 1-14 mL 4 ity of % nebulizer 00:00: (four) [place] solution 00 times Medical daily. Branch sodium 2016-07 Yes 4mL Inhale 4 [facility] chloride 3 1-14 mL 4 ity of % nebulizer 00:00: (four) [place] solution 00 times Medical daily. Branch sodium 2016-07 Yes 4mL Inhale 4 [facility] chloride 3 1-14 mL 4 ity of % nebulizer 00:00: (four) [place] solution 00 times Medical daily. Branch sodium 2016-07 Yes 4mL Inhale 4 [facility] chloride 3 1-14 mL 4 ity of % nebulizer 00:00: (four) [place] solution 00 times Medical daily. Branch sodium 2016-07 Yes 4mL Inhale 4 [facility] chloride 3 1-14 mL 4 ity of % nebulizer 00:00: (four) [place] solution 00 times Medical daily. Branch sodium 2016-07- No 4mL Inhale 4 Univer s chloride 3 1-14 08-05 mL 4 ity of % nebulizer 00:00: 00:00 (four) [place] 00 :00 times Medical daily. [place] ranitidine Yes TK 1 T PO Un alexia 300 mg 4-18 BID ity of tablet 00:00: [address] ranitidine Yes TK 1 T PO Un alexia 300 mg 4-18 BID ity of tablet 00:00: [place] [facility] ranitidine [address] Yes TK 1 T PO Un alexia 300 mg 4-18 BID ity of tablet 00:00: [place] [facility] ranitidine [address] Yes TK 1 T PO Un alexia 300 mg 4-18 BID ity of tablet 00:00: [place] [facility] Branch ranitidine 2017 Yes TK 1 T PO Un alexia 300 mg 4-18 BID ity of tablet 00:00: [place] [facility] ranitidine [address] Yes TK 1 T PO Un alexia 300 mg 4-18 BID ity of tablet 00:00: [place] [facility] ranitidine 2017 Yes TK 1 T PO Un alexia 300 mg 4-18 BID ity of tablet 00:00: [place] [facility] ranitidine [address] Yes TK 1 T PO Un alexia 300 mg 4-18 BID ity of tablet 00:00: [place] [facility] ranitidine 2017 Yes TK 1 T PO Un alexia 300 mg 4-18 BID ity of tablet 00:00: [place] [facility] Branch ranitidine [address] Yes TK 1 T PO Un alexia 300 mg 4-18 BID ity of tablet 00:00: [place] [facility] ranitidine [address] Yes TK 1 T PO Un alexia 300 mg 4-18 BID ity of tablet 00:00: [place] [facility] ranitidine [address] Yes TK 1 T PO Un alexia 300 mg 4-18 BID ity of tablet 00:00: [place] [facility] ranitidine 2017-0 Yes TK 1 T PO Un alexia 300 mg 4-18 BID ity of tablet 00:00: [place] [facility] ranitidine [address] 2022- No TK 1 T PO U nivers 300 mg 4-18 08-05 BID ity of tablet 00:00: 00:00 [place] 00 :00 Medical Branch QUEtiapine Yes 50mg Take 1 Tab U nivers (SEROQUEL) 9-26 by mouth ity o f 50 mg 00:00: at [place] tablet 00 bedtime. Medical Branch QUEtiapine Yes 50mg Take 1 Tab U nivers (SEROQUEL) 9-26 by mouth ity o f 50 mg 00:00: at [place] tablet 00 bedtime. Medical Branch QUEtiapine 2015-0 Yes 50mg Take 1 Tab U nivers (SEROQUEL) 9-26 by mouth ity o f 50 mg 00:00: at [place] tablet 00 bedtime. Medical Branch QUEtiapine 2014-0 Yes 50mg Take 1 Tab U nivers (SEROQUEL) 9-26 by mouth ity o f 50 mg 00:00: at [place] tablet 00 bedtime. Medical Branch QUEtiapine 2014-0 Yes 50mg Take 1 Tab U nivers (SEROQUEL) 9-26 by mouth ity o f 50 mg 00:00: at [place] tablet 00 bedtime. Medical Branch QUEtiapine 2014-0 Yes 50mg Take 1 Tab U nivers (SEROQUEL) 9-26 by mouth ity o f 50 mg 00:00: at [place] tablet 00 bedtime. Medical Branch QUEtiapine 2014-0 Yes 50mg Take 1 Tab U nivers (SEROQUEL) 9-26 by mouth ity o f 50 mg 00:00: at [place] tablet 00 bedtime. Medical Branch QUEtiapine 2014-0 Yes 50mg Take 1 Tab U nivers (SEROQUEL) 9-26 by mouth ity o f 50 mg 00:00: at [place] tablet 00 bedtime. Medical Branch QUEtiapine 2014-0 Yes 50mg Take 1 Tab U nivers (SEROQUEL) 9-26 by mouth ity o f 50 mg 00:00: at [place] tablet 00 bedtime. Medical Branch QUEtiapine 2014-0 Yes 50mg Take 1 Tab U nivers (SEROQUEL) 9-26 by mouth ity o f 50 mg 00:00: at [place] tablet 00 bedtime. Medical Branch QUEtiapine 2014-0 Yes 50mg Take 1 Tab U nivers (SEROQUEL) 9-26 by mouth ity o f 50 mg 00:00: at [place] tablet 00 bedtime. Medical Branch QUEtiapine 2014-0 Yes 50mg Take 1 Tab U nivers (SEROQUEL) 9-26 by mouth ity o f 50 mg 00:00: at [place] tablet 00 bedtime. Medical Branch QUEtiapine 2014-0 Yes 50mg Take 1 Tab U nivers (SEROQUEL) 9-26 by mouth ity o f 50 mg 00:00: at [place] tablet 00 bedtime. Medical Branch QUEtiapine 2015-0 Yes 50mg Take 1 Tab U nivers (SEROQUEL) 9-26 by mouth ity o f 50 mg 00:00: at [place] tablet 00 bedtime. Medical Branch QUEtiapine 0 Yes 50mg Take 1 Tab U nivers (SEROQUEL) 9-26 by mouth ity o f 50 mg 00:00: at [place] tablet 00 bedtime. Medical Branch QUEtiapine Yes 50mg Take 1 Tab U nivers (SEROQUEL) 9-26 by mouth ity o f 50 mg 00:00: at [place] tablet 00 bedtime. Medical Branch QUEtiapine Yes 50mg Take 1 Tab U nivers (SEROQUEL) 9-26 by mouth ity o f 50 mg 00:00: at [place] tablet 00 bedtime. Medical Branch QUEtiapine Yes 50mg Take 1 Tab U nivers (SEROQUEL) 9-26 by mouth ity o f 50 mg 00:00: at [place] tablet 00 bedtime. Medical Branch QUEtiapine Yes 50mg Take 1 Tab U nivers (SEROQUEL) 9-26 by mouth ity o f 50 mg 00:00: at [place] tablet 00 bedtime. Medical Branch QUEtiapine Yes 50mg Take 1 Tab U nivers (SEROQUEL) 9-26 by mouth ity o f 50 mg 00:00: at [place] tablet 00 bedtime. Medical Branch QUEtiapine 0 Yes 50mg Take 1 Tab U nivers (SEROQUEL) 9-26 by mouth ity o f 50 mg 00:00: at [place] tablet 00 bedtime. Medical Branch QUEtiapine 0 Yes 50mg Take 1 Tab U nivers (SEROQUEL) 9-26 by mouth ity o f 50 mg 00:00: at [place] tablet 00 bedtime. Medical Branch paroxetine Yes 40mg Take 2 Unive rs (PAXIL) 20 9- Tabs by ity of mg tablet 00:00: mouth [place] 00 daily. Medical Branch paroxetine 0 Yes 40mg Take 2 Unive rs (PAXIL) 20 - Tabs by ity of mg tablet 00:00: mouth [place] 00 daily. Medical Branch paroxetine 2014-2- No 40mg Take 2 Univ ers (PAXIL) 20 9- 03-01 Tabs by ity o f mg tablet 00:00: 00:00 mouth [place] 00 :00 daily. Medical Branch pregabalin 2015-0 Yes 300mg Take 1 Cap Univers (LYRICA) 6-13 by mouth ity of 300 mg 00:00: at [place] capsule 00 bedtime. Medical Branch pregabalin 2014-0 Yes 300mg Take 1 Cap Univers (LYRICA) 6-13 by mouth ity of 300 mg 00:00: at [place] capsule 00 bedtime. Medical Branch pregabalin 2014-0 Yes 300mg Take 1 Cap Univers (LYRICA) 6-13 by mouth ity of 300 mg 00:00: at [place] capsule 00 bedtime. Medical Branch pregabalin 2014-0 Yes 300mg Take 1 Cap Univers (LYRICA) 6-13 by mouth ity of 300 mg 00:00: at [place] capsule 00 bedtime. Medical Branch pregabalin 2014-0 Yes 300mg Take 1 Cap Univers (LYRICA) 6-13 by mouth ity of 300 mg 00:00: at [place] capsule 00 bedtime. Medical Branch pregabalin 2014-0 Yes 300mg Take 1 Cap Univers (LYRICA) 6-13 by mouth ity of 300 mg 00:00: at [place] capsule 00 bedtime. Medical Branch pregabalin 2014-0 Yes 300mg Take 1 Cap Univers (LYRICA) 6-13 by mouth ity of 300 mg 00:00: at [place] capsule 00 bedtime. Medical Branch pregabalin 2014-0 Yes 300mg Take 1 [facility] ([facility]RICA) 6-13 by mouth ity of 300 mg 00:00: at [place] capsule 00 bedtime. [facility] pregabalin 2015-0 Yes 300mg Take 1 [facility] (LYRICA) 6-13 by mouth ity of 300 mg 00:00: at [place] capsule 00 bedtime. [facility] pregabalin 2015-0 Yes 300mg Take 1 [facility] (LYRICA) 6-13 by mouth ity of 300 mg 00:00: at [place] capsule 00 bedtime. [facility] pregabalin 2015-0 Yes 300mg Take 1 [facility] (LYRICA) 6-13 by mouth ity of 300 mg 00:00: at [place] capsule 00 bedtime. [facility] pregabalin 2015-0 Yes 300mg Take 1 [facility] (LYRICA) 6-13 by mouth ity of 300 mg 00:00: at [place] capsule 00 bedtime. [facility] pregabalin 2014-0 Yes 300mg Take 1 [facility] (LYRICA) 6-13 by mouth ity of 300 mg 00:00: at [place] capsule 00 bedtime. [facility] pregabalin 0 Yes 300mg Take 1 [facility] (LYRICA) 6-13 by mouth ity of 300 mg 00:00: at [place] capsule 00 bedtime. [facility] pregabalin 0 Yes 300mg Take 1 [facility] (LYRICA) 6-13 by mouth ity of 300 mg 00:00: at [place] capsule 00 bedtime. [facility] pregabalin 0 Yes 300mg Take 1 Cap [facility] (LYRICA) 6-13 by mouth ity of 300 mg 00:00: at [place] capsule 00 bedtime. [facility] pregabalin 0 Yes 300mg Take 1 [facility] (LYRICA) 6-13 by mouth ity of 300 mg 00:00: at [place] capsule 00 bedtime. [facility] pregabalin 0 Yes 300mg Take 1 Cap [facility] (LYRICA) 6-13 by mouth ity of 300 mg 00:00: at [place] capsule 00 bedtime. [facility] pregabalin 0 Yes 300mg Take 1 Cap [facility] (LYRICA) 6-13 by mouth ity of 300 mg 00:00: at [place] capsule 00 bedtime. [facility] pregabalin 2014-0 2022- No 300mg Take 1 Cap [facility] (LYRICA) 6-13 01-16 by mouth ity of 300 mg 00:00: 00:00 at [place] capsule 00 :00 bedtime. [facility] Immunizations Ordered Filled Immunization Date Status Comments [facility] e Immunization Name Name Pneumococcal 2017-06-08 Completed University o f Polysaccharide, 00:00:00 [place] [facility] PPSV23 (PNEUMOVAX) Branch Influenza Virus 2017-06-08 Completed Universit y of Vaccine Quad IM 3+ 00:00:00 [facility] Branch Pneumococcal 2017-06-08 Completed University o f Polysaccharide, 00:00:00 [place] [facility] PPSV23 (PNEUMOVAX) Branch Influenza Virus 2017-06-08 Completed Universit y of Vaccine Quad IM 3+ 00:00:00 [facility] Branch Pneumococcal 2017-06-08 Completed University o f Polysaccharide, 00:00:00 [place] [facility] PPSV23 (PNEUMOVAX) Branch Influenza Virus 2017-06-08 Completed Universit y of Vaccine [facility] IM 3+ 00:00:00 [facility] Pneumococcal 2017-06-08 Completed University o f Polysaccharide, 00:00:00 [place] [facility] PPSV23 (PNEUMOVAX) Branch Influenza Virus 2017-06-08 Completed Universit y of Vaccine Quad IM 3+ 00:00:00 [facility] Pneumococcal 2017-06-08 Completed University o f Polysaccharide, 00:00:00 [place] [facility] PPSV23 (PNEUMOVAX) Branch Influenza Virus 2017-06-08 Completed Universit y of Vaccine Quad IM 3+ 00:00:00 [facility] Pneumococcal 2017-06-08 Completed University o f Polysaccharide, 00:00:00 [place] [facility] PPSV23 (PNEUMOVAX) Branch Influenza Virus 2017-06-08 Completed Universit y of Vaccine Quad IM 3+ 00:00:00 [facility] Pneumococcal 2017-06-08 Completed University o f Polysaccharide, 00:00:00 [place] [facility] PPSV23 (PNEUMOVAX) Branch Influenza Virus 2017-06-08 Completed Universit y of Vaccine Quad IM 3+ 00:00:00 [facility] Pneumococcal 2017-06-08 Completed University o f Polysaccharide, 00:00:00 [place] [facility] PPSV23 (PNEUMOVAX) Branch Influenza Virus 2017-06-08 Completed Universit y of Vaccine Quad IM 3+ 00:00:00 [facility] Pneumococcal 2017-06-08 Completed University o f Polysaccharide, 00:00:00 [place] [facility] PPSV23 (PNEUMOVAX) Branch Influenza Virus 2017-06-08 Completed Universit y of Vaccine Quad IM 3+ 00:00:00 [facility] Pneumococcal 2017-06-08 Completed University o f Polysaccharide, 00:00:00 [place] [facility] PPSV23 (PNEUMOVAX) Branch Influenza Virus 2017-06-08 Completed Universit y of Vaccine Quad IM 3+ 00:00:00 [facility] Pneumococcal 2017-06-08 Completed University o f Polysaccharide, 00:00:00 [place] [facility] PPSV23 (PNEUMOVAX) Branch Influenza Virus 2017-06-08 Completed Universit y of Vaccine Quad IM 3+ 00:00:00 [facility] Pneumococcal 2017-06-08 Completed University o f Polysaccharide, 00:00:00 [place] [facility] PPSV23 (PNEUMOVAX) Branch Influenza Virus 2017-06-08 Completed Universit y of Vaccine Quad IM 3+ 00:00:00 [facility] Pneumococcal 2017-06-08 Completed University o f Polysaccharide, 00:00:00 [place] [facility] PPSV23 (PNEUMOVAX) Branch Influenza Virus 2017-06-08 Completed Universit y of Vaccine Quad IM 3+ 00:00:00 [facility] Pneumococcal 2017-06-08 Completed University o f Polysaccharide, 00:00:00 [place] [facility] PPSV23 (PNEUMOVAX) Branch Influenza Virus 2017-06-08 Completed Universit y of Vaccine Quad IM 3+ 00:00:00 [facility] Pneumococcal 2017-06-08 Completed University o f Polysaccharide, 00:00:00 [place] [facility] PPSV23 (PNEUMOVAX) Branch Influenza Virus 2017-06-08 Completed Universit y of Vaccine Quad IM 3+ 00:00:00 [facility] Pneumococcal 2017-06-08 Completed University o f Polysaccharide, 00:00:00 [place] [facility] PPSV23 (PNEUMOVAX) Branch Influenza Virus 2017-06-08 Completed Universit y of Vaccine Quad IM 3+ 00:00:00 [facility] Pneumococcal 2017-06-08 Completed University o f Polysaccharide, 00:00:00 [place] [facility] PPSV23 (PNEUMOVAX) Branch Influenza Virus 2017-06-08 Completed Universit y of Vaccine Quad IM 3+ 00:00:00 [facility] Pneumococcal 2017-06-08 Completed University o f Polysaccharide, 00:00:00 [place] [facility] PPSV23 (PNEUMOVAX) Branch Influenza Virus 2017-06-08 Completed Universit y of Vaccine Quad IM 3+ 00:00:00 [facility] Pneumococcal 2017-06-08 Completed University o f Polysaccharide, 00:00:00 [place] [facility] PPSV23 (PNEUMOVAX) Branch Influenza Virus 2017-06-08 Completed Universit y of Vaccine Quad IM 3+ 00:00:00 [facility] Pneumococcal 2017-06-08 Completed University o f Polysaccharide, 00:00:00 [place] [facility] PPSV23 (PNEUMOVAX) Branch Influenza Virus 2017-06-08 Completed Universit y of Vaccine Quad IM 3+ 00:00:00 [facility] Pneumococcal 2017-06-08 Completed University o f Polysaccharide, 00:00:[address] [facility] ical PPSV23 (PNEUMOVAX) Branch Influenza Virus 2017-06-08 Completed Universit y of Vaccine Quad IM 3+ 00:00:00 [facility] Pneumococcal 2017-06-08 Completed University o f Polysaccharide, 00:00:[address] [facility] ical PPSV23 (PNEUMOVAX) Branch Influenza Virus 2017-06-08 Completed Universit y of Vaccine Quad IM 3+ 00:00:00 [facility] Influenza Virus 2015-06-20 Completed Universit y of Vaccine Quad IM 3+ 00:00:00 [facility] Influenza Virus 2015-06-20 Completed Universit y of Vaccine Quad IM 3+ 00:00:00 [facility] Influenza Virus 2015-06-20 Completed Universit y of Vaccine [facility] IM 3+ 00:00:00 [facility] Influenza Virus 2015-06-20 Completed Universit y of Vaccine [facility] IM 3+ 00:00:00 [facility] Influenza Virus 2015-06-20 Completed Universit y of Vaccine [facility] IM 3+ 00:00:00 [facility] Influenza Virus 2015-06-20 Completed Universit y of Vaccine Quad IM 3+ 00:00:00 [facility] Influenza Virus 2015-06-20 Completed Universit y of Vaccine Quad IM 3+ 00:00:00 [facility] Influenza Virus 2015-06-20 Completed Universit y of Vaccine [facility] IM 3+ 00:00:00 [facility] Influenza Virus 2015-06-20 Completed Universit y of Vaccine [facility] IM 3+ 00:00:00 [facility] Influenza Virus 2015-06-20 Completed Universit y of Vaccine [facility] IM 3+ 00:00:00 [facility] Influenza Virus 2015-06-20 Completed Universit y of Vaccine [facility] IM 3+ 00:00:00 [facility] Influenza Virus 2015-06-20 Completed Universit y of Vaccine [facility] IM 3+ 00:00:00 [facility] Influenza Virus 2015-06-20 Completed Universit y of Vaccine Quad IM 3+ 00:00:00 [facility] Influenza Virus 2015-06-20 Completed Universit y of Vaccine Quad IM 3+ 00:00:00 [facility] Influenza Virus 2015-06-20 Completed Universit y of Vaccine [facility] IM 3+ 00:00:00 [facility] Influenza Virus 2015-06-20 Completed Universit y of Vaccine Quad IM 3+ 00:00:00 [facility] Influenza Virus 2015-06-20 Completed Universit y of Vaccine Quad IM 3+ 00:00:00 [facility] Influenza Virus 2015-06-20 Completed Universit y of Vaccine Quad IM 3+ 00:00:00 [facility] Influenza Virus 2015-06-20 Completed Universit y of Vaccine Quad IM 3+ 00:00:00 [facility] Influenza Virus 2015-06-20 Completed Universit y of Vaccine Quad IM 3+ 00:00:00 [facility] Influenza Virus 2015-06-20 Completed Universit y of Vaccine Quad IM 3+ 00:00:00 [facility] Influenza Virus 2015-06-20 Completed Universit y of Vaccine Quad IM 3+ 00:00:00 [facility] Pneumococcal 2014-07-31 Completed University o f Polysaccharide, 00:00:00 [place] [facility] PPSV23 (PNEUMOVAX) [facility] Influenza Virus 2014-07-31 Completed Universit y of Vaccine Quad IM 3+ 00:00:00 [facility] TDAP 2014-07-31 Completed University of 00:00:00 [facility] Pneumococcal 2014-07-31 Completed University o f Polysaccharide, 00:00:00 [place] [facility] PPSV23 (PNEUMOVAX) Branch Influenza Virus 2014-07-31 Completed Universit y of Vaccine Quad IM 3+ 00:00:00 [facility] TDAP 2014-07-31 Completed University of 00:00:00 [place] [facility] Pneumococcal 2014-07-31 Completed University o f Polysaccharide, 00:00:00 [place] [facility] PPSV23 (PNEUMOVAX) Branch Influenza Virus 2014-07-31 Completed Universit y of Vaccine Quad IM 3+ 00:00:00 [facility] TDAP 2014-07-31 Completed University of 00:00:00 [place] [facility] Pneumococcal 2014-07-31 Completed University o f Polysaccharide, 00:00:00 [place] [facility] PPSV23 (PNEUMOVAX) Branch Influenza Virus 2014-07-31 Completed Universit y of Vaccine Quad IM 3+ 00:00:00 [facility] TDAP 2014-07-31 Completed University of 00:00:00 [place] [facility] Pneumococcal 2014-07-31 Completed University o f Polysaccharide, 00:00:00 [place] [facility] PPSV23 (PNEUMOVAX) Branch Influenza Virus 2014-07-31 Completed Universit y of Vaccine Quad IM 3+ 00:00:00 [facility] TDAP 2014-07-31 Completed University of 00:00:00 [facility] Pneumococcal 2014-07-31 Completed University o f Polysaccharide, 00:00:00 [place] [facility] PPSV23 (PNEUMOVAX) Branch Influenza Virus 2014-07-31 Completed Universit y of Vaccine Quad IM 3+ 00:00:00 [facility] TDAP 2014-07-31 Completed University of 00:00:00 [facility] Pneumococcal 2014-07-31 Completed University o f Polysaccharide, 00:00:00 [place] [facility] PPSV23 (PNEUMOVAX) Branch Influenza Virus 2014-07-31 Completed Universit y of Vaccine Quad IM 3+ 00:00:00 [facility] TDAP 2014-07-31 Completed University of 00:00:00 [facility] Pneumococcal 2014-07-31 Completed University o f Polysaccharide, 00:00:00 [place] [facility] PPSV23 (PNEUMOVAX) Branch Influenza Virus 2014-07-31 Completed Universit y of Vaccine Quad IM 3+ 00:00:00 [facility] TDAP 2014-07-31 Completed University of 00:00:00 [facility] Pneumococcal 2014-07-31 Completed University o f Polysaccharide, 00:00:00 [place] [facility] PPSV23 (PNEUMOVAX) Branch Influenza Virus 2014-07-31 Completed Universit y of Vaccine Quad IM 3+ 00:00:00 [facility] TDAP 2014-07-31 Completed University of 00:00:00 [facility] Pneumococcal 2014-07-31 Completed University o f Polysaccharide, 00:00:00 [place] [facility] PPSV23 (PNEUMOVAX) Branch Influenza Virus 2014-07-31 Completed Universit y of Vaccine Quad IM 3+ 00:00:00 [facility] TDAP 2014-07-31 Completed University of 00:00:00 [facility] Pneumococcal 2014-07-31 Completed University o f Polysaccharide, 00:00:00 [place] [facility] PPSV23 (PNEUMOVAX) Branch Influenza Virus 2014-07-31 Completed Universit y of Vaccine Quad IM 3+ 00:00:00 [facility] TDAP 2014-07-31 Completed University of 00:00:00 [facility] Pneumococcal 2014-07-31 Completed University o f Polysaccharide, 00:00:00 [place] [facility] PPSV23 (PNEUMOVAX) Branch Influenza Virus 2014-07-31 Completed Universit y of Vaccine Quad IM 3+ 00:00:00 [facility] TDAP 2014-07-31 Completed University of 00:00:00 [facility] Pneumococcal 2014-07-31 Completed University o f Polysaccharide, 00:00:00 [place] [facility] PPSV23 (PNEUMOVAX) Branch Influenza Virus 2014-07-31 Completed Universit y of Vaccine Quad IM 3+ 00:00:00 [facility] TDAP 2014-07-31 Completed University of 00:00:00 [facility] Pneumococcal 2014-07-31 Completed University o f Polysaccharide, 00:00:00 [place] [facility] PPSV23 (PNEUMOVAX) Branch Influenza Virus 2014-07-31 Completed Universit y of Vaccine Quad IM 3+ 00:00:00 [facility] TDAP 2014-07-31 Completed University of 00:00:00 [facility] Pneumococcal 2014-07-31 Completed University o f Polysaccharide, 00:00:00 [place] [facility] PPSV23 (PNEUMOVAX) Branch Influenza Virus 2014-07-31 Completed Universit y of Vaccine Quad IM 3+ 00:00:00 [facility] TDAP 2014-07-31 Completed University of 00:00:00 [facility] Pneumococcal 2014-07-31 Completed University o f Polysaccharide, 00:00:00 [place] [facility] PPSV23 (PNEUMOVAX) Branch Influenza Virus 2014-07-31 Completed Universit y of Vaccine Quad IM 3+ 00:00:00 [facility] TDAP 2014-07-31 Completed University of 00:00:00 [facility] Pneumococcal 2014-07-31 Completed University o f Polysaccharide, 00:00:00 [place] [facility] PPSV23 (PNEUMOVAX) Branch Influenza Virus 2014-07-31 Completed Universit y of Vaccine Quad IM 3+ 00:00:00 [facility] TDAP 2014-07-31 Completed University of 00:00:00 [facility] Pneumococcal 2014-07-31 Completed University o f Polysaccharide, 00:00:00 [place] [facility] PPSV23 (PNEUMOVAX) Branch Influenza Virus 2014-07-31 Completed Universit y of Vaccine Quad IM 3+ 00:00:00 [facility] TDAP 2014-07-31 Completed University of 00:00:00 [facility] Pneumococcal 2014-07-31 Completed University o f Polysaccharide, 00:00:00 [place] [facility] PPSV23 (PNEUMOVAX) Branch Influenza Virus 2014-07-31 Completed Universit y of Vaccine Quad IM 3+ 00:00:00 [facility] TDAP 2014-07-31 Completed University of 00:00:00 [facility] Pneumococcal 2014-07-31 Completed University o f Polysaccharide, 00:00:00 [place] [facility] PPSV23 (PNEUMOVAX) Branch Influenza Virus 2014-07-31 Completed Universit y of Vaccine Quad IM 3+ 00:00:00 [facility] TDAP 2014-07-31 Completed University of 00:00:00 [facility] Pneumococcal 2014-07-31 Completed University o f Polysaccharide, 00:00:00 [place] [facility] PPSV23 (PNEUMOVAX) Branch Influenza Virus 2014-07-31 Completed Universit y of Vaccine Quad IM 3+ 00:00:00 [facility] TDAP 2014-07-31 Completed University of 00:00:00 [facility] Pneumococcal 2014-07-31 Completed University o f Polysaccharide, 00:00:00 [place] [facility] PPSV23 (PNEUMOVAX) Branch Influenza Virus 2014-07-31 Completed Universit y of Vaccine Quad IM 3+ 00:00:00 [facility] TDAP 2014-07-31 Completed University of 00:00:00 [facility] Vital Signs Vital Name Observation Time Observation Value Comments Source Systolic blood 2022-09-09 14:30:00 105 mm[Hg] Univer sity of pressure [facility] Diastolic blood 2022-09-09 14:30:00 78 mm[Hg] Unive rsity of pressure [facility] Heart rate 2022-09-09 14:30:00 95 /min [facility] Body temperature 2022-09-09 14:30:00 37.22 Laly [facility] [place] [facility] 2022-09-09 14:30:00 12 /min [facility] [place] [facility] O[facility] saturation in 2022-09-09 14:30:00 93 /min [facility] Arterial blood by [facility] Pulse oximetry [facility] Body height 2022-09-09 12:41:00 152.4 cm [facility] Body weight 2022-09-09 12:41:00 98.431 kg [facility] [place] [facility] BMI 2022-09-09 12:41:00 42.38 kg/m2 [facility] [place] [facility] Systolic blood 2022-08-10 22:08:00 129 mm[Hg] Univer sity of pressure [place] [facility] Diastolic blood 2022-08-10 22:08:00 76 mm[Hg] Unive rsity of pressure [place] [facility] Heart rate 2022-08-10 22:08:00 107 /min [facility] [place] [facility] Body temperature 2022-08-10 22:08:00 37.17 Laly [facility] [place] [facility] Respiratory rate 2022-08-10 22:08:00 15 /min [facility] [place] [facility] Oxygen saturation in 2022-08-10 22:08:00 96 /min [facility] Arterial blood by [place] [facility] Pulse oximetry Branch Body weight 2022-08-10 09:00:00 98.5 kg [facility] [place] [facility] BMI 2022-08-10 09:00:00 41.03 kg/m2 [facility] [place] [facility] Body height 2022-08-05 06:47:00 154.9 cm [facility] [place] [facility] Systolic blood 2022-06-05 05:00:00 96 mm[Hg] Univer sity of pressure [place] [facility] Diastolic blood 2022-06-05 05:00:00 66 mm[Hg] Unive rsity of pressure [place] [facility] Heart rate 2022-06-05 05:00:00 82 /min [facility] [place] [facility] Respiratory rate 2022-06-05 05:00:00 13 /min [facility] [place] [facility] Oxygen saturation in 2022-06-05 05:00:00 97 /min [facility] Arterial blood by [place] [facility] Pulse oximetry Branch Body temperature 2022-06-05 02:51:00 36.33 [facility] [place] [facility] Body height 2022-06-05 02:51:00 154.9 cm [facility] [place] [facility] Body weight 2022-06-05 02:51:00 97.523 kg [facility] [place] [facility] BMI 2022-06-05 02:51:00 40.62 kg/m2 [facility] [place] [facility] Systolic blood 2022-05-13 07:00:00 127 mm[Hg] Univer sity of pressure [place] [facility] Diastolic blood 2022-05-13 07:00:00 84 mm[Hg] Unive rsity of pressure [place] [facility] Heart rate 2022-05-13 07:00:00 90 /min [facility] [place] [facility] Respiratory rate 2022-05-13 07:00:00 14 /min [facility] [place] [facility] Oxygen saturation in 2022-05-13 07:00:00 97 /min [facility] Arterial blood by [place] [facility] Pulse oximetry Branch Body temperature 2022-05-13 04:01:00 36.56 L[facility] [place] [facility] Body height 2022-05-13 04:01:00 154.9 cm [facility] [place] [facility] Body weight 2022-05-13 04:01:00 95.255 kg [facility] [place] [facility] BMI 2022-05-13 04:01:00 39.68 kg/m2 [facility] [place] [facility] Systolic blood 2022-05-02 07:00:00 147 mm[Hg] Univer sity of pressure [place] [facility] Diastolic blood 2022-05-02 07:00:00 90 mm[Hg] Unive rsity of pressure [place] [facility] Heart rate 2022-05-02 07:00:00 86 /min [facility] [place] [facility] Respiratory rate 2022-05-02 07:00:00 17 /min [facility] [place] [facility] Oxygen saturation in 2022-05-02 07:00:00 98 /min [facility] Arterial blood by [place] [facility] Pulse oximetry Branch Body temperature 2022-05-02 05:21:00 36.44 Laly [facility] [place] [facility] Body height 2022-05-02 05:21:00 154.9 cm [facility] [place] [facility] Body weight 2022-05-02 05:21:00 95.255 kg [facility] [place] [facility] BMI 2022-05-02 05:21:00 39.68 kg/m2 [facility] [place] [facility] Systolic blood 2022-04-29 05:36:00 133 mm[Hg] Univer sity of pressure [place] [facility] Diastolic blood 2022-04-29 05:36:00 85 mm[Hg] Unive rsity of pressure [place] [facility] Heart rate 2022-04-29 05:36:00 89 /min [facility] [place] [facility] Respiratory rate 2022-04-29 05:36:00 22 /min [facility] [place] [facility] Oxygen saturation in 2022-04-29 05:36:00 100 /min [facility] Arterial blood by [place] [facility] Pulse oximetry Branch Body temperature 2022-04-29 02:44:00 36.56 Laly [facility] [place] [facility] Body height 2022-04-29 02:44:00 154.9 cm [facility] [place] [facility] Body weight 2022-04-29 02:44:00 95.255 kg [facility] [place] [facility] BMI 2022-04-29 02:44:00 39.68 kg/m2 [facility] [place] [facility] Systolic blood 2022-02-27 21:00:00 116 mm[Hg] Univer sity of pressure [place] [facility] Diastolic blood 2022-02-27 21:00:00 74 mm[Hg] Unive rsity of pressure [place] [facility] Heart rate 2022-02-27 21:00:00 89 /min [facility] [place] [facility] Body temperature 2022-02-27 21:00:00 36.61 L[facility] [place] [facility] Respiratory rate 2022-02-27 21:00:00 18 /min [facility] [place] [facility] Oxygen saturation in 2022-02-27 21:00:00 98 /min [facility]ial [facility] by [facility] Pulse oximetry Branch Body weight 2022-02-23 13:00:00 92.987 kg [facility] [place] [facility] BMI 2022-02-23 13:00:00 38.73 kg/m2 [facility] [place] [facility] Body height 2022-02-21 01:00:00 154.9 cm [facility] [place] [facility] Body temperature 2022-02-17 21:50:00 37.17 L[facility] [place] [facility] Heart rate 2022-02-17 21:42:00 77 /min [facility] [place] [facility] Respiratory rate 2022-02-17 21:42:00 18 /min [facility] [place] [facility] Oxygen saturation in 2022-02-17 21:42:00 94 /min [facility]ial [facility] Pulse oximetry [facility] Systolic blood 2022-02-17 10:00:00 122 mm[Hg] Univer sity of pressure [place] [facility] Diastolic blood 2022-02-17 10:00:00 69 mm[Hg] Unive rsity of pressure [place] [facility] Body weight 2022-02-17 01:00:00 107 kg [facility] [place] [facility] BMI 2022-02-17 01:00:00 44.57 kg/m2 [facility] [place] [facility] Body height 2022-02-12 09:00:00 154.9 cm [facility] [place] [facility] Systolic blood 2022-01-31 16:32:00 136 mm[Hg] Univer sity of pressure [place] [facility] Diastolic blood 2022-01-31 16:32:00 80 mm[Hg] Unive rsity of pressure [place] [facility] Heart rate 2022-01-31 16:32:00 84 /min [facility] [place] [facility] Body temperature 2022-01-31 16:32:00 37 Laly [facility] [place] [facility] Respiratory rate 2022-01-31 16:32:00 10 /min [facility] [place] [facility] Oxygen saturation in 2022-01-31 16:32:00 98 /min [facility] Arterial blood by [place] [facility] Pulse oximetry Branch Body weight 2022-01-30 09:00:00 103.964 kg [facility] [place] [facility] BMI 2022-01-30 09:00:00 43.31 kg/m2 [facility] [place] [facility] Body height 2022-01-28 04:12:00 154.9 cm [facility] [place] [facility] Systolic blood 2022-01-13 03:00:00 134 mm[Hg] Univer sity of pressure [place] [facility] Diastolic blood 2022-01-13 03:00:00 94 mm[Hg] Unive rsity of pressure [place] [facility] Heart rate 2022-01-13 03:00:00 119 /min [facility] [place] [facility] Respiratory rate 2022-01-13 03:00:00 18 /min [facility] [place] [facility] Oxygen saturation in 2022-01-13 03:00:00 91 /min [facility] Arterial blood by [place] [facility] Pulse oximetry Branch Body temperature 2022-01-12 22:31:00 36.94 L[place] [facility] [place] [facility] Body height 2022-01-12 22:31:00 154.9 cm [facility] Body weight 2022-01-12 22:31:00 104.327 kg [facility] BMI 2022-01-12 22:31:00 43.46 kg/m2 [facility] Systolic blood 2022-01-12 17:00:00 135 mm[Hg] [facility] Diastolic blood 2022-01-12 17:00:00 65 mm[Hg] [facility] Heart rate 2022-01-12 17:00:00 108 /min [facility] Respiratory rate 2022-01-12 17:00:00 20 /min [facility] Oxygen saturation in 2022-01-12 17:00:00 92 /min [facility] Arterial blood by [place] [facility] Pulse oximetry Branch Body temperature 2022-01-12 09:00:00 36.22 Laly [facility] Body weight 2022-01-03 17:00:00 104.32 kg [facility] BMI 2022-01-03 17:00:00 43.46 kg/m2 [facility] Body height 2022-01-02 09:20:00 154.9 cm [facility] Systolic blood 2021-12-09 05:00:00 123 mm[Hg] [facility] Diastolic blood 2021-12-09 05:00:00 66 mm[Hg] [facility] Heart rate 2021-12-09 05:00:00 96 /min [facility] Respiratory rate 2021-12-09 05:00:00 13 /min [facility] Oxygen saturation in 2021-12-09 05:00:00 96 /min [facility] Arterial blood by [employer] michel Pulse oxim[facility] Branch Body temperature 2021-12-09 03:35:00 35.94 Laly [facility] Body height 2021-12-09 03:35:00 154.9 cm [facility] Body weight 2021-12-09 03:35:00 104.327 kg [facility] BMI 2021-12-09 03:35:00 43.46 kg/m2 [facility] Systolic blood 2021-09-23 20:00:00 141 mm[Hg] [facility] pressure [facility] Diastolic blood 2021-09-23 20:00:00 83 mm[Hg] [facility] Heart rate 2021-09-23 20:00:00 98 /min [facility] Respiratory rate 2021-09-23 20:00:00 16 /min [facility] Oxygen saturation in 2021-09-23 20:00:00 97 /min [facility] Body temperature 2021-09-23 18:00:00 36.61 Laly [facility] Body height 2021-09-22 21:50:00 154.9 cm [facility] Body weight 2021-09-22 21:50:00 104.3 kg [facility] BMI 2021-09-22 21:50:00 43.45 kg/m2 [facility] Procedures Procedure Date / Time Performing Clinician Source Performed TROPONIN I 2022-09-09 13:20:00 Joslyn Ruelas [facility] COMP. METABOLIC PANEL 2022-09-09 13:20:00 Joslyn Ruelas [facility] ([id number]) [facility] CBC WITH DIFF 2022-09-09 13:20:00 Joslyn Ruelas [facility] RAPID INFLUENZA A/B 2022-09-09 13:20:00 Joslyn Ruelas [facility] N-TERMINAL PRO-BNP 2022-09-09 13:20:00 Joslyn Ruelas [facility] COVID-19 (ID NOW RAPID 2022-09-09 13:20:00 Joslyn Ruelas [facility] TESTING) [facility] CONSENT/REFUSAL FOR 2022-09-09 12:19:48 Doctor Unassigned, [facility] DIAGNOSIS AND TREATMENT Anton [facility] POCT GLUCOSE (AUTOMATED) 2022-08-10 17:15:00 Jonas Hernandez [facility] POCT GLUCOSE (AUTOMATED) 2022-08-10 13:45:00 Jonas Hernandez [facility] POCT GLUCOSE (AUTOMATED) 2022-08-10 09:17:00 Jonas Hernandez Uni [facility] POCT GLUCOSE (AUTOMATED) 2022-08-10 06:01:00 Jonas Hernandez Uni [facility] POCT GLUCOSE (AUTOMATED) 2022-08-10 02:09:00 Jonas Hernandez Uni [facility] POCT GLUCOSE (AUTOMATED) 2022-08-09 22:26:[address] [facility] XR CHEST 1 VW 2022-08-09 19:47:37 Gogo [facility] XR CHEST 1 VW 2022-08-09 14:07:17 [facility] 2022-08-09 13:17:[address] [facility] PHOSPHORUS 2022-08-09 11:24:00 Carlos [facility] MAGNESIUM 2022-08-09 11:24:00 [facility] BASIC METABOLIC PANEL 2022-08-09 11:24:00 Corey Gonzalez [facility] (NA, K, CL, CO2, GLUCOSE, Medica l Branch BUN, CREATININE, CA) CBC WITH DIFF 2022-08-09 11:24:00 Sunny [facility] POCT GLUCOSE (AUTOMATED) 2022-08-09 11:22:[address] [facility] POCT GLUCOSE (AUTOMATED) 2022-08-09 06:16:00 Jonas Hernandez [facility] POCT GLUCOSE (AUTOMATED) 2022-08-09 02:24:00 Jonas Hernandez Uni [facility] POCT GLUCOSE (AUTOMATED) 2022-08-08 22:31:00 Jonas Hernandez [facility] POCT GLUCOSE (AUTOMATED) 2022-08-08 17:30:00 Mary, Adnan [facility] POCT GLUCOSE (AUTOMATED) 2022-08-08 13:20:00 Jonas Hernandez [facility] POCT GLUCOSE (AUTOMATED) 2022-08-08 09:51:00 Jonas Hernandez [facility] POCT GLUCOSE (AUTOMATED) 2022-08-08 06:10:00 Jonas Hernandez [facility] POCT GLUCOSE (AUTOMATED) 2022-08-08 02:37:00 Jonas Hernandez [facility] POCT GLUCOSE (AUTOMATED) 2022-08-07 22:16:00 Jonas Hernandez [facility] POCT GLUCOSE (AUTOMATED) 2022-08-07 17:26:00 Jonas Hernandez [facility] TRANSTHORACIC ECHO (TTE) 2022-08-07 16:31:00 Stella Ivory [facility] W/ CONTRAST Medical [facility] POCT GLUCOSE (AUTOMATED) 2022-08-07 13:42:00 Jonas Hernandez [facility] PHOSPHORUS 2022-08-07 11:00:00 Corey Gonzalez [facility] MAGNESIUM 2022-08-07 11:00:00 Carlos Corey [facility] BILI UNCONJUGATED/BILI 2022-08-07 11:00:00 Corey Gonzalez [facility] TROPONIN I 2022-08-07 11:00:00 Corey Gonzalez [facility] THYROID STIMULATING 2022-08-07 11:00:00 Corey Gonzalez [facility] HORMONE [facility] COMP. METABOLIC PANEL 2022-08-07 11:00:00 Jonas Hernandez [facility] ([id number]) [facility] CBC WITH DIFF 2022-08-07 11:00:00 Corey Gonzalez [facility] N-TERMINAL PRO-BNP 2022-08-07 11:00:00 Corey Gonzalez [facility] ACUTE CARE VENOUS BLOOD 2022-08-07 10:59:00 Jonas Hernandez [facility] POCT GLUCOSE (AUTOMATED) 2022-08-07 10:17:00 Jonas Hernandez [facility] POCT GLUCOSE (AUTOMATED) 2022-08-07 05:38:00 Jonas Hernandez [facility] POCT GLUCOSE (AUTOMATED) 2022-08-07 02:06:00 Jonas Hernandez [facility] POCT GLUCOSE (AUTOMATED) 2022-08-06 22:27:00 Jonas Hernandez [facility] POCT GLUCOSE (AUTOMATED) 2022-08-06 17:15:00 Jonas Hernandez [facility] CT THORAX W CONTRAST 2022-08-06 16:53:51 Anish Walters [facility] CORTISOL AM 2022-08-06 13:33:00 Mary agus [facility] CBC WITH DIFF 2022-08-06 13:33:00 Mary [facility] LACTIC ACID WHOLE BLOOD 2022-08-06 13:33:00 Jonas Hernandez [facility] POCT GLUCOSE (AUTOMATED) 2022-08-06 13:27:00 Jonas Hernandez [facility] POCT GLUCOSE (AUTOMATED) 2022-08-06 10:37:00 Jonas Hernandez [facility] PHOSPHORUS 2022-08-06 10:25:00 Jonas eHrnandez [facility] CREATINE KINASE 2022-08-06 10:25:00 Jonas Hernandez [facility] MAGNESIUM 2022-08-06 10:25:00 Mary agus [facility] TROPONIN I 2022-08-06 10:25:00 Mary agus [facility] COMP. METABOLIC PANEL 2022-08-06 10:25:00 Jonas Hernandez [facility] ([id number]) [facility] ACUTE CARE VENOUS BLOOD 2022-08-06 10:25:00 Jonas Hernandez [facility] N-TERMINAL PRO-BNP 2022-08-06 10:25:00 Jonas Hernandez [facility] POCT GLUCOSE (AUTOMATED) 2022-08-06 06:54:00 Jonas Hernandez [facility] POCT GLUCOSE (AUTOMATED) 2022-08-06 02:30:00 Jonas Hernandez [facility] POCT GLUCOSE (AUTOMATED) 2022-08-05 22:59:00 Jonas Hernandez [facility] TROPONIN I 2022-08-05 22:00:00 Jonas Hernandez [facility] URINALYSIS 2022-08-05 21:45:00 Carlos [facility] URINE CULTURE 2022-08-05 21:45:00 Carlos [facility] POCT GLUCOSE (AUTOMATED) 2022-08-05 17:53:00 Jonas Hernandez [facility] POCT GLUCOSE (AUTOMATED) 2022-08-05 13:19:00 Jonas Hernandez [facility] XR CHEST 1 VW 2022-08-05 12:59:00 Mary agus [facility] LEGIONELLA URINARY 2022-08-05 11:12:00 Jonas Hernandez [facility] ANTIGEN [facility] RESPIRATORY PANEL BY PCR 2022-08-05 11:12:00 Jonas Hernandez [facility] URINE CULTURE 2022-08-05 11:11:00 Jonas Hernandez [facility] SODIUM, URINE RANDOM 2022-08-05 11:11:00 Jonas Hernandze [facility] PNEUMOCOCCAL ANTIGEN 2022-08-05 11:11:00 Jonas Hernandez [facility] PROTEIN CREAT RATIO URINE 2022-08-05 11:11:00 Jonas Hernandez [facility] OSMOLALITY URINE 2022-08-05 11:10:00 Mary [facility] MRSA / MSSA SCREEN BY 2022-08-05 11:09:00 Jonas Hernandez [facility] PCR, [facility] PHOSPHORUS 2022-08-05 11:08:00 Jonas Hernandez [facility] CREATINE KINASE 2022-08-05 11:08:00 Mary [facility] MAGNESIUM 2022-08-05 11:08:00 Mary agus [facility] TROPONIN I 2022-08-05 11:08:00 Mary [facility] COMP. METABOLIC PANEL 2022-08-05 11:08:00 Mary [facility] ([id number]) [facility] LIPID PANEL ([id number])(TOTAL 2022-08-05 11:08:00 Jonas Hernandez [facility] CHOLESTEROL, [facility] TRIGLYCERIDES, HDL) SEDIMENTATION RATE 2022-08-05 11:08:00 Jonas Hernandez [facility] GLYCOSYLATED HEMOGLOBIN 2022-08-05 11:08:00 Mary [facility] (A1C) [facility] URINALYSIS 2022-08-05 11:08:00 Mary [facility] MYCOPLASMA PNEUMONIAE 2022-08-05 11:08:00 Mary agus [facility] ANTIBODY, IGM [facility] N-TERMINAL PRO-BNP 2022-08-05 11:08:00 Mary agus [facility] PROCALCITONIN 2022-08-05 11:08:00 Mary [facility] AC PANEL 20 + LACTIC ACID 2022-08-05 10:56:00 Jonas Hernandez [facility] ASSIGNMENT OF BENEFITS 2022-08-05 06:59:31 Doctor Unassigned, [facility] CONSENT/REFUSAL FOR 2022-08-05 06:58:52 Doctor Unassigned, [facility] DIAGNOSIS AND TREATMENT [facility] XR CHEST 1 VW 2022-06-05 04:10:06 Singer [facility] TROPONIN I 2022-06-05 03:21:00 Gen Acevedo [facility] COMP. METABOLIC PANEL 2022-06-05 03:21:00 Gen Acevedo [facility] ([id number]) Medical Branch CBC WITH DIFF 2022-06-05 03:21:00 Singer [facility] RAPID INFLUENZA A/B 2022-06-05 03:21:00 Singer [facility] N-TERMINAL PRO-BNP 2022-06-05 03:21:00 Singer [facility] COVID-19 (ID NOW RAPID 2022-06-05 03:21:00 Gen Acevedo [facility] TESTING) Medical Branch CONSENT/REFUSAL FOR 2022-06-05 02:20:45 Doctor Unassigned, [facility] DIAGNOSIS AND TREATMENT [facility] TROPONIN I 2022-05-13 07:08:00 Paula Rowe [facility] CT CHEST PULMONARY 2022-05-13 06:13:34 Paula Rowe [facility] ANGIOGRAM [facility] XR CHEST 1 VW 2022-05-13 04:42:45 Paula Rowe [facility] BLOOD CULTURE SCREEN 2022-05-13 04:10:00 Paula Rowe [facility] TROPONIN I 2022-05-13 04:10:00 Paula Rowe [facility] COMP. METABOLIC PANEL 2022-05-13 04:10:00 Paula Rowe [facility] ([id number]) [facility] CBC WITH DIFF 2022-05-13 04:10:00 Paula Rowe [facility] PROTHROMBIN TIME / INR 2022-05-13 04:10:00 Paula Rowe [facility] ACTIVATED PARTIAL 2022-05-13 04:10:[address] [facility] THRMPLAS [facility] RAPID INFLUENZA A/B 2022-05-13 04:10:00 Paula Rowe [facility] N-TERMINAL PRO-BNP 2022-05-13 04:10:00 Paula Rowe [facility] COVID-19 (ID NOW RAPID 2022-05-13 04:10:00 Paula Rowe [facility] TESTING) [facility] AC PANEL 21 + LACTIC ACID 2022-05-02 06:08:00 Sanjay Henry [facility] XR CHEST 1 VW 2022-05-02 05:52:00 Sanjay Henry [facility] URINALYSIS 2022-05-02 05:44:00 Sanjay Henry [facility] MAGNESIUM 2022-05-02 05:43:00 Carl [facility] TROPONIN I 2022-05-02 05:43:00 Sanjay Henry [facility] COMP. METABOLIC PANEL 2022-05-02 05:43:00 Sanjay Henry Janel [facility] ([id number]) [facility] CBC WITH DIFF 2022-05-02 05:43:00 Carl [facility] N-TERMINAL PRO-BNP 2022-05-02 05:43:00 Sanjay Henry Janel [facility] CONSENT/REFUSAL FOR 2022-05-02 05:16:55 Doctor Unassigned, [facility] DIAGNOSIS AND TREATMENT [facility] COVID-19 (ID NOW RAPID 2022-04-29 03:43:00 Paula Rowe [facility] TESTING) [facility] CT ABDOMEN PELVIS WO 2022-04-29 03:38:06 Paula Rowe [facility] CONTRAST [facility] Branch XR CHEST 1 VW 2022-04-29 03:23:24 Paula Rowe [facility] TROPONIN I 2022-04-29 02:49:00 Paula Rowe [facility] COMP. METABOLIC PANEL 2022-04-29 02:49:00 Paula Rowe [facility] ([id number]) [facility] CBC WITH DIFF 2022-04-29 02:49:00 Paula Rowe [facility] PROTHROMBIN TIME / INR 2022-04-29 02:49:00 Paula Rowe [facility] ACTIVATED PARTIAL 2022-04-29 02:49:[address] [facility] THRMPLAS SHREYA [facility] N-TERMINAL PRO-BNP 2022-04-29 02:49:00 Paula Rowe [facility] POCT GLUCOSE (AUTOMATED) 2022-02-27 20:30:00 Kevin Lebron [facility] POCT GLUCOSE (AUTOMATED) 2022-02-27 16:16:00 Yasmine Kevin Rinaldi [facility] POCT GLUCOSE (AUTOMATED) 2022-02-27 12:27:00 Kevin Lebron [facility] POCT GLUCOSE (AUTOMATED) 2022-02-26 21:42:00 Kevin Lebron [facility] POCT GLUCOSE (AUTOMATED) 2022-02-26 17:49:00 Kevin Lebron [facility] POCT GLUCOSE (AUTOMATED) 2022-02-26 14:27:00 Kevin Lebron [facility] MAGNESIUM 2022-02-26 08:50:00 Michael [facility] BASIC METABOLIC PANEL 2022-02-26 08:50:00 Artie Rodriguez [facility] (NA, K, CL, CO2, GLUCOSE, Medica l Branch BUN, CREATININE, CA) POCT GLUCOSE (AUTOMATED) 2022-02-26 01:26:00 Kevin Lebron [facility] POCT GLUCOSE (AUTOMATED) 2022-02-25 20:40:00 Kevin Lebron [facility] POCT GLUCOSE (AUTOMATED) 2022-02-25 16:39:00 Kevin Lebron [facility] ACUTE CARE ARTERIAL BLOOD 2022-02-25 14:04:00 [facility] 2022-02-25 12:51:00 Kevin Lebron [facility] PHOSPHORUS 2022-02-25 11:01:00 Lisa Fritz [facility] MAGNESIUM 2022-02-25 11:01:00 [facility] METABOLIC PANEL 2022-02-25 11:01:00 Lisa Fritz [facility] (NA, K, CL, CO2, GLUCOSE, Medica l Branch BUN, CREATININE, CA) POCT GLUCOSE (AUTOMATED) 2022-02-25 01:24:00 Kevni Lebron [facility] POCT GLUCOSE (AUTOMATED) 2022-02-24 20:49:00 Kevin Lebron [facility] POCT GLUCOSE (AUTOMATED) 2022-02-24 16:52:00 Yasmine Kevin Rinaldi [facility] ACUTE CARE ARTERIAL BLOOD 2022-02-24 16:42:00 Isma [facility] POCT GLUCOSE (AUTOMATED) 2022-02-24 13:24:00 Yasmine Kevin [facility] TROPONIN I 2022-02-24 12:34:00 Lam [facility] BASIC METABOLIC PANEL 2022-02-24 12:34:00 [facility] ([facility], K, CL, CO2, GLUCOSE, Medica l Branch BUN, CREATININE, CA) HB ECG ROUTINE & RHYTHM 2022-02-24 12:23:17 Lam [facility] LACTIC ACID WHOLE BLOOD 2022-02-24 03:13:00 [facility]) 2022-02-24 01:20:00 Yasmine Kevin [facility] XR KUB 2022-02-24 00:31:00 Dana [facility] POCT GLUCOSE (AUTOMATED) 2022-02-23 22:34:00 Yasmine Kevin [facility] POCT GLUCOSE (AUTOMATED) 2022-02-23 21:46:00 Yasmine Kevin [facility] XR CHEST 1 VW 2022-02-23 19:26:00 Dana [facility] AC PANEL 20 + LACTIC ACID 2022-02-23 18:02:00 Isma Cortez [facility] POCT GLUCOSE (AUTOMATED) 2022-02-23 17:19:00 Kevin Lebron [facility] POCT GLUCOSE (AUTOMATED) 2022-02-23 13:22:00 Yasmine Kevin [facility] POCT GLUCOSE (AUTOMATED) 2022-02-22 21:55:00 Yasmine Kevin [facility] POCT GLUCOSE (AUTOMATED) 2022-02-22 18:22:00 Kevin Lebron [facility] CBC WITH DIFF 2022-02-22 11:32:00 Joshua [facility] MAGNESIUM 2022-02-22 11:31:00 Joshua [facility] BASIC METABOLIC PANEL 2022-02-22 11:31:00 Joshua [facility] (NA, K, CL, CO2, GLUCOSE, Medica l Branch BUN, CREATININE, CA) XR CHEST 1 VW 2022-02-22 09:34:00 Joshua [facility] POCT GLUCOSE (AUTOMATED) 2022-02-22 01:20:00 Kevin Lebron [facility] POCT GLUCOSE (AUTOMATED) 2022-02-21 21:53:00 Kevin Lebron [facility] CBC WITHOUT DIFF 2022-02-21 15:46:00 [facility]OMATED) 2022-02-21 14:26:00 Kevin Lebron [facility] URINALYSIS 2022-02-21 08:27:00 Joshua [facility] URINE CULTURE 2022-02-21 08:27:00 Joshua [facility] MAGNESIUM 2022-02-21 08:06:00 Joshua [facility] BASIC METABOLIC PANEL 2022-02-21 08:06:00 Joshua [facility] (NA, K, CL, CO2, GLUCOSE, Medica l Branch BUN, CREATININE, CA) CBC WITH DIFF 2022-02-21 08:06:00 Joshua [facility] MRSA / MSSA SCREEN BY 2022-02-21 03:21:00 Chase Ny [facility] PCR, [facility] POCT GLUCOSE (AUTOMATED) 2022-02-21 02:31:00 Kevin Lebron [facility] BLOOD CULTURE SCREEN 2022-02-21 01:58:00 [facility] 2022-02-21 01:49:00 [facility]W 2022-02-20 23:44:00 Kevin [facility] ACUTE CARE ARTERIAL BLOOD 2022-02-20 23:23:00 Anant Lynettecynthiagian [facility] XR CHEST 1 VW 2022-02-20 20:39:00 Paula Rowe [facility] TROPONIN I 2022-02-20 20:17:00 Paula Rowe [facility] COMP. METABOLIC PANEL 2022-02-20 20:17:00 Paula Rowe [facility] ([id number]) Medical Branch CBC WITH DIFF 2022-02-20 20:17:00 Paula Rowe [facility] PROTHROMBIN TIME / INR 2022-02-20 20:17:00 Paula Rowe [facility] ACTIVATED PARTIAL 2022-02-20 20:17:00 Jae [facility] THRMPLAS SHREYA [facility] N-TERMINAL PRO-BNP 2022-02-20 20:17:00 Paula Rowe [facility] COVID-19 (ID NOW RAPID 2022-02-20 20:07:00 Paula Rowe [facility] TESTING) Medical Branch LAB ONLY COVID 2022-02-20 20:07:00 Paula Rowe [facility] INTERPRETATION [facility] HB ECG ROUTINE & RHYTHM 2022-02-20 20:06:49 Paula Rowe [facility] Branch CONSENT/REFUSAL FOR 2022-02-20 19:58:43 Doctor Arturo, [facility] DIAGNOSIS AND TREATMENT [facility] EMERGENCY DEPARTMENT 2022-02-20 05:01:00 Doctor Unaezke, [facility] DOCUMENTS [facility] HOSPITAL ADMISSION 2022-02-20 05:01:00 Doctor Arturo [facility] POCT GLUCOSE (AUTOMATED) 2022-02-17 21:44:00 Scarlett, Valeriano [facility] POCT GLUCOSE (AUTOMATED) 2022-02-17 17:09:00 Terminella, Valeriano [facility] POCT GLUCOSE (AUTOMATED) 2022-02-17 13:06:00 Termingamaliel, Valeriano [facility] XR CHEST 1 VW 2022-02-17 11:51:08 Nathaniel [facility] MAGNESIUM 2022-02-17 09:13:00 Ntahaniel [facility] BASIC METABOLIC PANEL 2022-02-17 09:13:00 Kayla Armstrogn [facility] (NA, K, CL, CO2, GLUCOSE, Medica l Branch BUN, CREATININE, CA) CBC WITH DIFF 2022-02-17 09:13:00 Nathaniel [facility] ACUTE CARE ARTERIAL BLOOD 2022-02-17 09:02:00 Kayla Armstrong [facility] POCT GLUCOSE (AUTOMATED) 2022-02-17 00:49:00 Terminella, Valeriano [facility] XR CHEST 1 VW 2022-02-16 23:15:00 Roberto [facility] POCT GLUCOSE (AUTOMATED) 2022-02-16 21:46:00 Terminella, Valeriano [facility] POCT GLUCOSE (AUTOMATED) 2022-02-16 16:59:00 Terminella, Valeriano [facility] POCT GLUCOSE (AUTOMATED) 2022-02-16 13:05:00 Terminella, Valeriano [facility] POCT GLUCOSE (AUTOMATED) 2022-02-16 08:32:00 Terminella, Valeriano [facility] POCT GLUCOSE (AUTOMATED) 2022-02-16 04:29:00 Terminella, Valeriano [facility] POCT GLUCOSE (AUTOMATED) 2022-02-16 00:39:00 Terminella, Valeriano [facility] POCT GLUCOSE (AUTOMATED) 2022-02-15 21:14:00 Terminella, Valeriano [facility] POCT GLUCOSE (AUTOMATED) 2022-02-15 16:58:00 Terminella, Valeriano [facility] POCT GLUCOSE (AUTOMATED) 2022-02-15 12:45:00 Terminella, Valeriano [facility] POCT GLUCOSE (AUTOMATED) 2022-02-15 08:02:00 Terminella, Valeriano [facility] MAGNESIUM 2022-02-15 07:56:00 Roberto Murdock [facility] COMP. METABOLIC PANEL 2022-02-15 07:56:00 Roberto Murdock [facility] ([id number]) [facility] CBC WITHOUT DIFF 2022-02-15 07:56:00 Roberto Murdock [facility] POCT GLUCOSE (AUTOMATED) 2022-02-15 04:15:00 Terminella, Valeriano [facility] POCT GLUCOSE (AUTOMATED) 2022-02-15 00:48:00 Terminella, Valeriano [facility] POCT GLUCOSE (AUTOMATED) 2022-02-14 21:22:00 Terminella, Valeriano [facility] POCT GLUCOSE (AUTOMATED) 2022-02-14 19:37:00 Terminella, Valeriano [facility] POCT GLUCOSE (AUTOMATED) 2022-02-14 16:28:00 Terminella, Valeriano [facility] POCT GLUCOSE (AUTOMATED) 2022-02-14 14:17:00 Terminella, Valeriano [facility] XR CHEST 1 VW 2022-02-14 11:42:00 Kayla Armstrong [facility] MAGNESIUM 2022-02-14 09:56:00 Kayla Armstrong [facility] COMP. METABOLIC PANEL 2022-02-14 09:56:00 Kayla Armstrong [facility] ([id number]) [facility] Branch CBC WITH DIFF 2022-02-14 09:56:00 [facility]LO[facility] 2022-02-14 08:33:00 Kayla Armstrong [facility] POCT GLUCOSE (AUTOMATED) 2022-02-14 08:17:00 Terminella, Valeriano [facility] POCT GLUCOSE (AUTOMATED) 2022-02-14 04:25:00 Terminella, Valeriano [facility] EKG-12 LEAD 2022-02-14 04:11:18 Doctor Unassigned, [facility] POCT GLUCOSE (AUTOMATED) 2022-02-14 00:55:00 Terminella, [facility] (AUTOMATED) 2022-02-13 22:29:00 Terminella, Valeriano [facility] PO[facility] GLUCOSE (AUTOMATED) 2022-02-13 17:29:00 Terminella, Valeriano [facility] PO[facility]UCOSE (AUTOMATED) 2022-02-13 15:52:00 [facility]inella[facility] ARTERIAL BLOOD 2022-02-13 14:22:00 [facility] POCT GLUCOSE (AUTOMATED) 2022-02-13 14:07:00 Terminella, Valeriano [facility] DUPLEX VENOUS LEGS 2022-02-13 14:00:43 Roberto Murdock [facility] BILATERAL - BY VASCULAR [facility] LAB POCT GLUCOSE (AUTOMATED) 2022-02-13 12:45:00 Terminella, Valeriano [facility] PO[facility]SE (AUTOMATED) 2022-02-13 11:43:00 Terminella, Valeriano [facility] MAGNESIUM 2022-02-13 10:33:00 Termingamaliel [facility] BASIC METABOLIC PANEL 2022-02-13 10:33:00 Roberto Murdock [facility] (NA, K, CL, CO2, GLUCOSE, Medica l Branch BUN, CREATININE, CA) CBC WITH DIFF 2022-02-13 10:33:00 TerminJanuary [facility] POCT GLUCOSE (AUTOMATED) 2022-02-13 09:42:00 Terminella, Valeriano [facility]UCOSE (AUTOMATED) 2022-02-13 08:46:00 Terminella, Valeriano [facility] PO[facility] GLUCOSE (AUTOMATED) 2022-02-13 07:59:00 Terminella, Valeriano [facility] PO[facility] GLUCOSE (AUTOMATED) 2022-02-13 06:56:00 Terminella, Valeriano [facility] POCT GLUCOSE (AUTOMATED) 2022-02-13 05:57:00 Terminella, Valeriano [facility] POCT GLUCOSE (AUTOMATED) 2022-02-13 03:36:00 Terminella, Valeriano [facility] BASIC METABOLIC PANEL 2022-02-13 03:30:00 Murdock Roberto [facility] [place] (NA, K, CL, CO2, GLUCOSE, Medica l Branch BUN, CREATININE, CA) POCT GLUCOSE (AUTOMATED) 2022-02-13 02:46:00 Terminella, Valeriano [facility] POCT GLUCOSE (AUTOMATED) 2022-02-13 01:37:00 Terminella, Valeriano [facility] POCT GLUCOSE (AUTOMATED) 2022-02-13 00:34:00 Terminella, Valeriano [facility] POCT GLUCOSE (AUTOMATED) 2022-02-12 23:25:00 Terminella, Valeriano [facility] POCT GLUCOSE (AUTOMATED) 2022-02-12 22:20:00 Terminella, Valeriano [facility] POCT GLUCOSE (AUTOMATED) 2022-02-12 21:02:00 Terminella, Valeriano [facility] BASIC METABOLIC PANEL 2022-02-12 20:39:00 MurdockRoberto [facility] [place] (NA, K, CL, CO2, GLUCOSE, Medica l Branch BUN, CREATININE, CA) POCT GLUCOSE (AUTOMATED) 2022-02-12 20:02:00 Terminella, Valeriano [facility] POCT GLUCOSE (AUTOMATED) 2022-02-12 19:06:00 Terminella, Valeriano [facility] POCT GLUCOSE (AUTOMATED) 2022-02-12 18:09:00 Terminella, Valeriano [facility] POCT GLUCOSE (AUTOMATED) 2022-02-12 17:17:00 Terminella, Valeriano [facility] SPUTUM CULTURE 2022-02-12 16:29:00 [facility] BASIC METABOLIC PANEL 2022-02-12 16:16:00 Kayla Armstrong [facility] (NA, K, CL, CO2, GLUCOSE, Medica l Branch BUN, CREATININE, CA) POCT GLUCOSE (AUTOMATED) 2022-02-12 16:11:00 Terminella, Valeriano [facility] POCT GLUCOSE (AUTOMATED) 2022-02-12 14:14:00 Terminella, Valeriano U [facility] POCT GLUCOSE (AUTOMATED) 2022-02-12 13:17:00 [facility] POCT GLUCOSE (AUTOMATED) 2022-02-12 12:42:00 [facility], Valeriano [facility] BASIC METABOLIC PANEL 2022-02-12 12:18:00 [facility] (NA, K, CL, CO2, GLUCOSE, Medica l Branch BUN, CREATININE, CA) POCT GLUCOSE (AUTOMATED) 2022-02-12 12:17:00 [facility], Valeriano [facility] POCT GLUCOSE (AUTOMATED) 2022-02-12 11:15:00 [facility] Valeriano [facility] POCT GLUCOSE (AUTOMATED) 2022-02-12 10:12:00 [facility] Valeriano [facility] POCT GLUCOSE (AUTOMATED) 2022-02-12 09:12:00 [facility] MRSA / MSSA SCREEN BY 2022-02-12 08:23:00 [facility] PCR, NARES [facility] AC PANEL 20 + LACTIC ACID 2022-02-12 08:22:00 [facility] PHOSPHORUS 2022-02-12 08:21:00 [facility] MAGNESIUM 2022-02-12 08:21:00 [facility] SERUM OR 2022-02-12 08:21:00 [facility] BETA HYDROXY-BUTYRATE 2022-02-12 08:21:00 [facility] BASIC METABOLIC PANEL 2022-02-12 08:21:00 [facility] (NA, K, CL, CO2, GLUCOSE, Medica l Branch BUN, CREATININE, CA) CBC WITH DIFF 2022-02-12 08:21:00 [facility] GLYCOSYLATED HEMOGLOBIN 2022-02-12 08:21:00 Valeriano Pantoja [facility] (A1C) [facility] POCT GLUCOSE (AUTOMATED) 2022-02-12 04:53:00 Paula Rowe [facility] URINE DRUG (IMMUNOASSAY) 2022-02-12 04:24:00 Paula Rowe [facility] DRUG [facility] nch SCREEN W/O REFLEX URINALYSIS 2022-02-12 04:23:00 Paula Rowe [facility] POCT GLUCOSE (AUTOMATED) 2022-02-12 04:12:00 Paula Rowe [facility] CT CHEST PULMONARY 2022-02-12 02:41:40 Paula Rowe [facility] ANGIOGRAM [facility] CT ABDOMEN PELVIS W 2022-02-12 02:39:36 Paula Rowe [facility] CONTRAST [facility] CT HEAD WO CONTRAST 2022-02-12 02:39:36 Paula Rowe [facility] XR CHEST 1 VW 2022-02-12 02:08:38 Paula Rowe [facility] AC PANEL 20 + LACTIC ACID 2022-02-12 01:59:00 Paula Rowe [facility] AMMONIA, PLASMA 2022-02-12 01:18:00 Paula Rowe [facility] BLOOD CULTURE SCREEN 2022-02-12 01:16:00 Paula Rowe [facility] COVID-19 (ID NOW RAPID 2022-02-12 01:16:00 Paula Rowe [facility] TESTING) [facility] LAB ONLY COVID 2022-02-12 01:16:00 Paula Rowe [facility] INTERPRETATION [facility] BLOOD CULTURE SCREEN 2022-02-12 01:12:00 Paula Rowe [facility] TROPONIN I 2022-02-12 01:12:00 Paula Rowe [facility] FREE T4 2022-02-12 01:12:00 Paula Rowe [facility] THYROID STIMULATING 2022-02-12 01:12:00 Paula Rowe [facility] HORMONE [facility] COMP. METABOLIC PANEL 2022-02-12 01:12:00 Paula Rowe [facility] ([id number]) Medical Branch ETHANOL 2022-02-12 01:12:00 Paula Rowe [facility] CBC WITH DIFF 2022-02-12 01:12:00 Paula Rowe [facility] PROTHROMBIN TIME / INR 2022-02-12 01:12:00 Paula Rowe [facility] ACTIVATED PARTIAL 2022-02-12 01:12:00 Jae [facility] THRMPLAS SHREYA [facility] N-TERMINAL PRO-BNP 2022-02-12 01:12:00 Paula Rowe [facility] EKG-12 LEAD 2022-02-12 01:06:16 Doctor Unassigned, [facility] POCT GLUCOSE (AUTOMATED) 2022-02-12 00:57:00 Paula Rowe [facility] ASSIGNMENT OF BENEFITS 2022-02-12 00:53:44 Doctor Unassigned, [facility] CONSENT/REFUSAL FOR 2022-02-12 00:53:30 Doctor Elidiassigned, [facility] DIAGNOSIS AND TREATMENT [facility] EMERGENCY DEPARTMENT 2022-02-11 05:01:00 Doctor Unassigned, [facility] DOCUMENTS Anton [facility] POCT GLUCOSE (AUTOMATED) 2022-01-31 16:09:00 Jonas Hernandez [facility] POCT GLUCOSE (AUTOMATED) 2022-01-31 12:37:00 Jonas Hernandez [facility] PHOSPHORUS 2022-01-31 09:02:[address] [facility] MAGNESIUM 2022-01-31 09:02:[address] [facility] BASIC METABOLIC PANEL 2022-01-31 09:02:00 Markus Loera [facility] (NA, K, CL, CO2, GLUCOSE, Medica l Branch BUN, CREATININE, CA) ACUTE CARE VENOUS BLOOD 2022-01-31 09:02:00 Luz Maria [facility] N-TERMINAL PRO-BNP 2022-01-31 09:02:[address] [facility] POCT GLUCOSE (AUTOMATED) 2022-01-30 21:20:00 Jonas Hernandez [facility] POCT GLUCOSE (AUTOMATED) 2022-01-30 16:58:00 Jonas Hernandez [facility] POCT GLUCOSE (AUTOMATED) 2022-01-30 13:58:00 Jonas Hernandez [facility] POCT GLUCOSE (AUTOMATED) 2022-01-30 13:11:00 Jonas Hernandez [facility] COMP. METABOLIC PANEL 2022-01-30 09:22:00 Jonas Hernandez [facility] ([id number]) Medical Wanda CBC WITH DIFF 2022-01-30 09:22:[address] [facility] N-TERMINAL PRO-BNP 2022-01-30 09:22:00 Jonas Hernandez [facility] ACUTE CARE VENOUS BLOOD 2022-01-30 09:21:00 Jonas Hernandez [facility] POCT GLUCOSE (AUTOMATED) 2022-01-30 03:01:00 Jonas Hernandez [facility] POCT GLUCOSE (AUTOMATED) 2022-01-29 21:03:00 Jonas Hernandez [facility] POCT GLUCOSE (AUTOMATED) 2022-01-29 16:05:00 Jonas Hernandez [facility] POCT GLUCOSE (AUTOMATED) 2022-01-29 15:13:00 Jonas Hernandez [facility] SPUTUM CULTURE 2022-01-29 13:06:[address] [facility] POCT GLUCOSE (AUTOMATED) 2022-01-29 12:46:00 Jonas Hernandez [facility] PHOSPHORUS 2022-01-29 09:33:00 Markus Loera [facility] MAGNESIUM 2022-01-29 09:33:00 Jonas Hernandez [facility] COMP. METABOLIC PANEL 2022-01-29 09:33:00 Jonas Hernandez [facility] ([id number]) Medical Wanda CBC WITH DIFF 2022-01-29 09:33:00 Markus Loera [facility] N-TERMINAL PRO-BNP 2022-01-29 09:33:00 Jonas Hernandez [facility] ACUTE CARE VENOUS BLOOD 2022-01-29 09:32:00 Jonas Hernandez [facility] GAS [facility] POCT GLUCOSE (AUTOMATED) 2022-01-29 02:58:00 Jonas Hernandez [facility] POCT GLUCOSE (AUTOMATED) 2022-01-29 01:35:00 Jonas Hernandez [facility] POCT GLUCOSE (AUTOMATED) 2022-01-28 21:20:00 Jonas Hernandez [facility] XR CHEST 1 VW 2022-01-28 18:54:18 Markus Loera [facility] PROTEIN CREAT RATIO URINE 2022-01-28 16:54:00 Dilan Coffey [facility] URIC ACID 2022-01-28 16:49:00 Dilan Coffey [facility] TROPONIN I 2022-01-28 16:49:00 Jonas Hernandez [facility] TRANSTHORACIC ECHO (TTE) 2022-01-28 15:37:00 Jonas Hernandez [facility] COMPLETE W/ CONTRAST Medical [facility] DUPLEX VENOUS LEGS 2022-01-28 14:42:22 Jonas Hernandez [facility] BILATERAL - BY VASCULAR [facility] LAB POCT GLUCOSE (AUTOMATED) 2022-01-28 13:57:00 Jonas Hernandez [facility] POCT GLUCOSE (AUTOMATED) 2022-01-28 12:58:00 Mary, Adnan [facility] TROPONIN I 2022-01-28 11:46:[address] [facility] IRON PANEL 2022-01-28 11:46:00 Jonas Hernandez [facility] SEDIMENTATION RATE 2022-01-28 11:46:00 Jonas Hernandez [facility] N-TERMINAL PRO-BNP 2022-01-28 11:46:[address] [facility] PHOSPHORUS 2022-01-28 11:45:00 Mary [facility] CREATINE KINASE 2022-01-28 11:45:00 Mary [facility] URIC ACID 2022-01-28 11:45:00 Mary [facility] MAGNESIUM 2022-01-28 11:45:00 Mary [facility] FERRITIN SERUM 2022-01-28 11:45:00 Mary [facility] VITAMIN B12, LEVEL 2022-01-28 11:45:00 Mary [facility] TROPONIN I 2022-01-28 11:45:00 Mary [facility] THYROID STIMULATING 2022-01-28 11:45:00 Jonas Hernandez [facility] HORMONE [facility] COMP. METABOLIC PANEL 2022-01-28 11:45:00 Jonas Hernandez [facility] ([id number]) [facility] LIPID PANEL ([id number])(TOTAL 2022-01-28 11:45:00 Jonas Hernandez [facility] CHOLESTEROL, [facility] TRIGLYCERIDES, HDL) ACUTE CARE VENOUS BLOOD 2022-01-28 11:45:00 Jonas Hernandez [facility] N-TERMINAL PRO-BNP 2022-01-28 11:45:00 Jonas Hernandez [facility] VITAMIN D, 25-OH 2022-01-28 11:45:00 Mary [facility]us [facility] PROCALCITONIN 2022-01-28 11:45:00 Jonas Hernandez [facility] OSMOLALITY URINE 2022-01-28 08:55:00 Mary [facility] URINALYSIS 2022-01-28 08:55:00 Mary [facility] URINE CULTURE 2022-01-28 08:55:00 Mary agus [facility] UREA NITROGEN, URINE 2022-01-28 08:55:00 Jonas Hernandez [facility] SODIUM, URINE RANDOM 2022-01-28 08:55:00 Mary [facility] PROTEIN CREAT RATIO URINE 2022-01-28 08:55:00 [facility] 2022-01-28 02:23:00 Paula Rowe [facility] TROPONIN I 2022-01-28 02:09:00 Paula Rowe [facility] COMP. METABOLIC PANEL 2022-01-28 02:09:00 Paula Rowe [facility] ([id number]) Medical Wanda CBC WITH DIFF 2022-01-28 02:09:00 Paula Rowe [facility] GLYCOSYLATED HEMOGLOBIN 2022-01-28 02:09:00 Mary [facility] (A1C) [facility] PROTHROMBIN TIME / INR 2022-01-28 02:09:00 Paula Rowe [facility] ACTIVATED PARTIAL 2022-01-28 02:09:[address] [facility] THRMPLAS SHREYA [facility] N-TERMINAL PRO-BNP 2022-01-28 02:09:00 Paula Rowe [facility] COVID-19 (ID NOW RAPID 2022-01-28 02:09:00 Paula Rowe [facility] TESTING) Medical Branch LAB ONLY COVID 2022-01-28 02:09:00 Paula Rowe [facility] INTERPRETATION [facility] HB ECG ROUTINE & RHYTHM 2022-01-28 01:47:33 Paula Rowe [facility] STRIP Medical Branch NOTICE OF PRIVACY 2022-01-28 01:38:34 Doctor Unassigned, [facility] PRACTICES [facility] CONSENT/REFUSAL FOR 2022-01-28 01:37:59 Doctor Unassigned, [facility] DIAGNOSIS AND TREATMENT [facility] Wanda COMP. METABOLIC PANEL 2022-01-12 23:24:00 Joslyn Ruelas [facility] ([id number]) [facility] CBC WITH DIFF 2022-01-12 23:24:00 Joslyn Ruelas [facility] XR CHEST 1 VW 2022-01-12 23:20:00 Joslyn Ruelas [facility] AC PANEL 21 + LACTIC ACID 2022-01-12 23:14:00 Joslyn Ruelas [facility] POCT GLUCOSE (AUTOMATED) 2022-01-12 17:48:00 Moulin, Cory [facility] POCT GLUCOSE (AUTOMATED) 2022-01-12 13:22:00 Moulin, Cory [facility] POCT GLUCOSE (AUTOMATED) 2022-01-12 05:51:00 Moulin, Cory [facility] POCT GLUCOSE (AUTOMATED) 2022-01-11 23:02:00 Moulin, Cory [facility] POCT GLUCOSE (AUTOMATED) 2022-01-11 17:20:00 Moulin, Cory [facility] POCT GLUCOSE (AUTOMATED) 2022-01-11 13:08:00 Moulin, Cory [facility] POCT GLUCOSE (AUTOMATED) 2022-01-11 11:35:00 Moulin, Cory [facility] MAGNESIUM 2022-01-11 10:46:00 Dawood Alva [facility] BASIC METABOLIC PANEL 2022-01-11 10:46:00 Dawood Alva [facility] (NA, K, CL, CO2, GLUCOSE, Medica l Branch BUN, CREATININE, CA) CBC WITH DIFF 2022-01-11 10:46:00 Dawood Alva [facility] POCT GLUCOSE (AUTOMATED) 2022-01-11 04:13:00 Moulin, Cory [facility] POCT GLUCOSE (AUTOMATED) 2022-01-10 22:36:00 Moulin, Cory [facility] POCT GLUCOSE (AUTOMATED) 2022-01-10 16:44:00 Moulin, Cory [facility] POCT GLUCOSE (AUTOMATED) 2022-01-10 13:02:00 Moulin, Cory [facility] POCT GLUCOSE (AUTOMATED) 2022-01-10 10:44:00 Moulin, Cory [facility] MAGNESIUM 2022-01-10 07:19:00 [facility] 2022-01-10 07:19[facility]00 [facility] ([facility], K, CL, CO2, GLUCOSE, Medica l Branch BUN, CREATININE, CA) CBC WITH DIFF 2022-01-10 07:19:00 Cam [facility] POCT GLUCOSE (AUTOMATED) 2022-01-10 04:48:00 Moulin, Cory [facility] (AUTOMATED) 2022-01-09 17:23:00 Moulin, Cory [facility] PO[facility] GLUCOSE (AUTOMATED) 2022-01-09 12:46:00 Moulin, Cory Rinaldi [facility] BASIC METABOLIC PANEL 2022-01-09 10:50:00 Artie [facility] (NA, K, CL, CO2, GLUCOSE, Medica l Branch BUN, CREATININE, CA) CBC WITH DIFF 2022-01-09 10:50:00 Artie [facility] POCT GLUCOSE (AUTOMATED) 2022-01-09 10:42:00 Moulin, Cory [facility] POCT GLUCOSE (AUTOMATED) 2022-01-09 04:21:00 Moulin, Cory [facility] POCT GLUCOSE (AUTOMATED) 2022-01-08 23:17:00 Moulin, Cory [facility] POCT GLUCOSE (AUTOMATED) 2022-01-08 18:14:00 Moulin, Cory [facility] POCT GLUCOSE (AUTOMATED) 2022-01-08 13:34:00 Moulin, Cory [facility] POCT GLUCOSE (AUTOMATED) 2022-01-08 10:57:00 Moulin, Cory [facility] BASIC METABOLIC PANEL 2022-01-08 10:48:00 Dawood Alva [facility] (NA, K, CL, CO2, GLUCOSE, Medica l Branch BUN, CREATININE, CA) CBC WITH DIFF 2022-01-08 10:48:00 Dawood Alva [facility] POCT GLUCOSE (AUTOMATED) 2022-01-08 05:43:00 Moulin, Cory [facility] POCT GLUCOSE (AUTOMATED) 2022-01-07 21:25:00 Moulin, Cory [facility] POCT GLUCOSE (AUTOMATED) 2022-01-07 16:34:00 Moulin, Cory [facility] ABG+COOX+NA+K+GLU+CA2+ 2022-01-07 15:40:00 Abu Atherabbi, Shahla [facility] POCT GLUCOSE (AUTOMATED) 2022-01-07 13:07:00 Moulin, Cory [facility] BASIC METABOLIC PANEL 2022-01-07 07:14:00 Dawood Alva [facility] (NA, K, CL, CO2, GLUCOSE, Medica l Branch BUN, CREATININE, CA) CBC WITH DIFF 2022-01-07 07:14:00 [facility] 2022-01-07 05:53:00 Moulin, Cory [facility] POCT GLUCOSE (AUTOMATED) 2022-01-06 23:35:00 Moulin, Cory [facility] POCT GLUCOSE (AUTOMATED) 2022-01-06 22:16:00 Moulin, Cory [facility] XR CHEST 1 VW 2022-01-06 21:37:00 Abu Shahla Stack [facility] POCT GLUCOSE (AUTOMATED) 2022-01-06 17:02:00 Moulin, Cory [facility] POCT GLUCOSE (AUTOMATED) 2022-01-06 13:41:00 MoulinCory [facility] PHOSPHORUS 2022-01-06 09:21:00 [facility] 2022-01-06 09:21:00 Ahmerlyn [facility] BASIC METABOLIC PANEL 2022-01-06 09:21:00 [facility] (NA, K, CL, CO2, GLUCOSE, Medica l Branch BUN, CREATININE, CA) CBC WITH DIFF 2022-01-06 09:21:00 Artie [facility] POCT GLUCOSE (AUTOMATED) 2022-01-05 20:44:00 Moulin, Cory [facility] XR ABDOMEN 1 VW 2022-01-05 17:55:00 Shahla Andrade [facility] POCT GLUCOSE (AUTOMATED) 2022-01-05 16:54:00 Moulin, Cory [facility] POCT GLUCOSE (AUTOMATED) 2022-01-05 13:09:00 MoulinCory [facility] PHOSPHORUS 2022-01-05 09:06:00 Moulin [facility] MAGNESIUM 2022-01-05 09:06:00 Moulin, [facility] BASIC METABOLIC PANEL 2022-01-05 09:06:00 Jaye [facility] (NA, K, CL, CO2, GLUCOSE, Medica l Branch BUN, CREATININE, CA) CBC WITH DIFF 2022-01-05 09:06:00 Monaveed [facility] POCT GLUCOSE (AUTOMATED) 2022-01-05 05:07:00 MoulinCory [facility] POCT GLUCOSE (AUTOMATED) 2022-01-04 22:10:00 Moulin, Cory [facility] POCT GLUCOSE (AUTOMATED) 2022-01-04 17:14:00 MoulinCory [facility] POCT GLUCOSE (AUTOMATED) 2022-01-04 11:15:00 MoulinCory [facility] PHOSPHORUS 2022-01-04 10:42:00 Jenifer [facility] MAGNESIUM 2022-01-04 10:42:00 Jenifer [facility] BASIC METABOLIC PANEL 2022-01-04 10:42:00 Jenifer [facility] (NA, K, CL, CO2, GLUCOSE, Medica l Branch BUN, CREATININE, CA) VANCOMYCIN TROUGH 2022-01-04 10:42:00 Moulin, [facility] CBC WITH DIFF 2022-01-04 10:42:00 Ashley Burgess [facility] CT ABDOMEN PELVIS W 2022-01-04 09:03:00 Abu Shahla Stack [facility] POCT GLUCOSE (AUTOMATED) 2022-01-04 06:25:00 Moulin, Cory [facility] POCT GLUCOSE (AUTOMATED) 2022-01-03 21:21:00 Moulin, Cory [facility] XR CHEST 1 VW 2022-01-03 20:48:16 Abu Shahla Stack [facility] POCT GLUCOSE (AUTOMATED) 2022-01-03 16:50:00 Moulin, Cory [facility] POCT GLUCOSE (AUTOMATED) 2022-01-03 12:59:00 Moulin, Cory [facility] POCT GLUCOSE (AUTOMATED) 2022-01-03 10:17:00 Moulin, Cory [facility] AC PANEL 20 + LACTIC ACID 2022-01-03 10:15:00 Moulin, [facility] 2022-01-03 08:54:00 Moulin, [facility] BASIC METABOLIC PANEL 2022-01-03 08:54:00 Moulin, Cory [facility] (NA, K, CL, CO2, GLUCOSE, Medica l Branch BUN, CREATININE, CA) CBC WITH DIFF 2022-01-03 08:54:00 Moulin, Cory [facility] POCT GLUCOSE (AUTOMATED) 2022-01-03 04:48:00 Moulin, Cory [facility] POCT GLUCOSE (AUTOMATED) 2022-01-02 22:15:00 Moulin, Cory [facility] SPUTUM CULTURE 2022-01-02 19:39:00 Abu Phillip [facility] XR KUB 2022-01-02 18:17:54 Abu Phillip [facility] XR KUB 2022-01-02 17:07:05 Abu Atherah, Emran [facility] POCT GLUCOSE (AUTOMATED) 2022-01-02 16:26:00 Cory Cee [facility] CT HEAD WO CONTRAST 2022-01-02 15:49:23 Meño Stack Shahla [facility] XR CHEST 1 VW 2022-01-02 13:45:16 Shahla Andrade [facility] AC PANEL 20 + LACTIC ACID 2022-01-02 12:37:00 Meño Stack [facility] POCT GLUCOSE (AUTOMATED) 2022-01-02 12:26:00 Cory Cee [facility] BASIC METABOLIC PANEL 2022-01-02 10:42:00 Cory Cee [facility] (NA, K, CL, CO2, GLUCOSE, Medica l Branch BUN, CREATININE, CA) BLOOD CULTURE SCREEN 2022-01-02 10:41:00 Cory Cee [facility] CBC WITH DIFF 2022-01-02 10:41:00 MoCory lucio [facility] GLYCOSYLATED HEMOGLOBIN 2022-01-02 10:41:00 Shahla Andrade [facility] (A1C) [facility] BLOOD CULTURE SCREEN 2022-01-02 10:40:00 MoCory lucio [facility] RESPIRATORY CULTURE 2022-01-02 10:40:00 MoCory lucio [facility] URINE CULTURE 2022-01-02 10:39:00 Jaye [facility] MRSA / MSSA SCREEN BY 2022-01-02 10:39:00 Cory Cee [facility] PCR, [facility] ABG+COOX+NA+K+GLU+CA2+ 2022-01-02 10:17:00 Cory Cee [facility] AC PANEL 21 + LACTIC ACID 2022-01-02 03:53:00 [facility] XR CHEST 1 VW 2022-01-02 02:59:00 [facility] URINALYSIS 2022-01-02 02:58:00 [place], [facility] LACTIC ACID WHOLE BLOOD 2022-01-02 02:26:00 Janis [place] [facility] AC PANEL 21 + LACTIC ACID 2022-01-02 02:26:00 Janis [facility] BLOOD CULTURE SCREEN 2022-01-02 02:25:00 [facility]is [facility] TROPONIN I 2022-01-02 02:25:00 Janis [facility] COMP. METABOLIC PANEL 2022-01-02 02:25:00 Janis Valencia [facility] ([id number]) [facility] CBC WITH DIFF 2022-01-02 02:25:00 Janis [facility] N-TERMINAL PRO-BNP 2022-01-02 02:25:00 Janis Valencia [facility] HB ECG ROUTINE & RHYTHM 2022-01-02 02:14:14 Janis Valencia [facility] HOSPITAL ADMISSION 2022-01-01 05:01:00 Doctor Unasssheila, [facility] 1 VW 2021-12-09 04:15:00 Duke Velazquez [facility] LIPASE 2021-12-09 03:52:00 Duke Velazquez [facility] TROPONIN I 2021-12-09 03:52:00 Duke Velazquez [facility] COMP. METABOLIC PANEL 2021-12-09 03:52:00 Duke Velazquez [facility] ([id number]) [facility] CBC WITH DIFF 2021-12-09 03:52:00 Duke Velazquez [facility] N-TERMINAL PRO-BNP 2021-12-09 03:52:00 Duke Velazquez [facility] CONSENT/REFUSAL FOR 2021-12-09 03:24:16 Doctor Unassigned, [facility] DIAGNOSIS AND TREATMENT [facility] POCT GLUCOSE (AUTOMATED) 2021-09-23 17:13:00 Paula Rowe [facility] POCT GLUCOSE (AUTOMATED) 2021-09-23 13:53:00 Paula Rowe [facility] BASIC METABOLIC PANEL 2021-09-23 10:22:00 Laurie Wilkins [facility] (NA, K, CL, CO2, GLUCOSE, Medica l Branch BUN, CREATININE, CA) CBC WITHOUT DIFF 2021-09-23 10:22:00 Laurie Wilkins [facility] POCT GLUCOSE (AUTOMATED) 2021-09-23 10:12:00 Paula Rowe [facility] POCT GLUCOSE (AUTOMATED) 2021-09-23 05:38:00 Paula Rowe [facility] POCT GLUCOSE (AUTOMATED) 2021-09-23 02:14:00 Paula Rowe [facility] POCT GLUCOSE (AUTOMATED) 2021-09-22 22:20:00 Paula Rowe [facility] POCT GLUCOSE (AUTOMATED) 2021-09-22 19:52:00 Paula Rowe [facility] TRANSTHORACIC ECHO (TTE) 2021-09-22 18:44:47 Cabrera [facility] COMPLETE W/ CONTRAST Medical [facility] POCT GLUCOSE (AUTOMATED) 2021-09-22 18:07:00 Paula Rowe [facility] EKG-12 LEAD 2021-09-22 13:45:05 Paula Rowe o f [facility] POCT GLUCOSE (AUTOMATED) 2021-09-22 13:20:00 Paula Rowe [facility] PNEUMOCOCCAL ANTIGEN 2021-09-22 12:39:00 Cabrera Armstrong [facility] MRSA / MSSA SCREEN BY 2021-09-22 12:34:00 Nathaniel [facility] BY PCR 2021-09-22 12:34:00 Nikos Pugh [facility] GALV ONLY - INFLUENZA A B 2021-09-22 12:33:00 Cabrera Armstrong [facility] RSV PCR Medical Branch COVID-19 (MOLECULAR 2021-09-22 12:33:00 [facility] TESTING [facility] NUCLEIC ACID AMPLIFICATION) SPUTUM CULTURE 2021-09-22 12:30:00 Nathaniel [facility] AC PANEL 20 + LACTIC ACID 2021-09-22 12:16:00 Cabrera Armstrong [facility] PHOSPHORUS 2021-09-22 12:15:00 Nathaniel [facility] MAGNESIUM 2021-09-22 12:15:00 [facility]EL 2021-09-22 12:15:00 [facility] ([id number]) (ALB,T.PRO,BILI Medical Branch T,BU/BC,ALT,AST,ALK PHOS) BASIC METABOLIC PANEL 2021-09-22 12:15:00 [facility] (NA, K, CL, CO2, GLUCOSE, Medica l Branch BUN, CREATININE, CA) CBC WITH DIFF 2021-09-22 12:15:00 Nathaniel [facility] PROTHROMBIN TIME / INR 2021-09-22 12:15:00 Nathaniel [facility] BLOOD CULTURE SCREEN 2021-09-22 12:13:00 Nathaniel [facility] AC PANEL 20 + LACTIC ACID 2021-09-22 06:41:00 Paula Rowe [facility] TROPONIN I 2021-09-22 06:36:00 Paula Rowe [facility] COMP. METABOLIC PANEL 2021-09-22 06:36:00 Paula Rowe [facility] ([id number]) Medical Branch CBC WITH DIFF 2021-09-22 06:36:00 Paula Rowe [facility] GLYCOSYLATED HEMOGLOBIN 2021-09-22 06:36:00 [facility] Medical [place]anda PROTHROMBIN TIME / INR 2021-09-22 06:36:00 Paula Rowe [facility] ACTIVATED PARTIAL 2021-09-22 06:36:[address] [facility] THRMPLAS SHREYA [facility] N-TERMINAL PRO-BNP 2021-09-22 06:36:00 [facility] COVID-19 (ID NOW RAPID 2021-09-22 06:36:00 Paula Rowe [facility] TESTING) Medical Branch LAB ONLY COVID 2021-09-22 06:36:00 Paula Rowe [facility] INTERPRETATION [facility] XR CHEST 1 VW 2021-09-22 06:26:48 Paula Rowe [facility] HB ECG ROUTINE & RHYTHM 2021-09-22 06:17:[address] [facility] HOSPITAL ADMISSION 2021-09-22 06:01:00 Doctor Arturo, [facility] CONSENT/REFUSAL FOR 2021-09-22 06:00:03 Doctor Arturo, [facility] DIAGNOSIS AND TREATMENT [facility] DME/SUPPLY JUSTIFICATION 2021-08-01 06:01:00 Doctor Arturo, [facility] Plan of Care Planned Activity Planned Date Details Comments Source Medication [address] [facility] 00:00:00 tablet [code = Medical [facility] h 286351] Encounters Start End Encounter Admission Attending Care Care Encounter Source Date/Time Date/Time Type Type Clinicians Facility Department ID 2022-08-05 Emergency [facility] [id number] Univers 00:34:[address] [facility] 2022-09-09 2022-09-09 Emergency [facility] [id number] Univers 06:30:00 08:46:[address] [facility] 2022-09-09 2022-09-09 Emergency [facility] 1.2.840.114 [id number] Univers 06:30:00 08:46:00 Joslyn BOYD 350.1.13.10 ity [facility] 4.2.7.2.686 [place] [id number] [facility] 084 Branch 2022-08-12 2022-08-12 Transition [place] Arrieta 1.2.840.114 [id number] Univers 00:00:00 00:00:00 of Care Alessandra JEFFREY 350.1.13.10 i ty of [place] 4.2.7.2.686 [facility] [id number] [facility] 403 Branch 2022-08-05 2022-08-10 Inpatient U CARLOS [facility] [place] [id number] Univers 00:39:00 17:00:[address] [facility] 2022-08-05 2022-08-10 [facility] Jonas Hernandez [facility] 1.2.840.11 [id number] Univers 00:39:00 17:00:00 Encounter Corey GonzalezKLEBER 350.1.13.10 it[facility] 4.2.7.2.686 [place] [id number] [address] 2022-06-04 2022-06-04 Emergency X [facility] ERT [id number] Univers 20:54:00 23:53:[address] [facility] 2022-06-04 2022-06-04 Emergency [facility] [id number] Univers 20:54:00 23:53:00 Gen DEB 350.1.13.10 i ty [facility] 4.2.7.2.686 [place] [id number] [address] 2022-05-12 2022-05-13 Emergency X [facility] ERT [id number] Univers 22:51:00 03:10:[address] [facility] 2022-05-12 2022-05-13 Emergency [facility] [id number] Univers 22:51:00 03:10:00 Paula BOYD 350.1.13.10 i ty [facility] 4.2.7.2.686 [place] [id number] [address] 2022-05-02 2022-05-02 Emergency X Sanjay HENRY [facility] ERT [id number] Univers 00:17:00 02:29:[address] [facility] 2022-05-02 2022-05-02 Emergency Sanjay Henry [facility] 1.2.840.114 [id number] Univers 00:17:00 02:29:00 Janel BOYD 350.1.13.10 i ty of [place] 4.2.7.2.686 [place] [facility] [id number] [place] 603714 Branch 2022-04-28 2022-04-29 Emergency X [facility] ERT [id number] Univers 21:41:00 00:50:00 PAULA ity of [facility] 2022-04-28 2022-04-29 Emergency [facility] [id number] Univers 21:41:00 00:50:00 Paula BOYD 350.1.13.10 i ty of [place] 4.2.7.2.686 [place] [id number] [place] 603714 Wanda 2022-03-02 2022-03-02 Transition [place] Arri[place] 1.2.840.114 [id number] Univers 00:00:00 00:00:00 of Care Alessandra JEFFREY 350.1.13.10 i ty [place] [id number] [facility] 403 Wanda 2022-02-20 2022-02-27 Inpatient [facility] [id number] Univers 14:58:00 17:54:00 [facility] 2022-02-20 2022-02-27 [facility] Paula Rowe 1.2.840.1 14 [id number] Univers 14:58:00 17:54:00 Encounter Kevin Lebron 350.1.13.10 ity of [facility] 4.2.7.2. 686 [place] [id number] [place] 603716 Wanda 2022-02-18 2022-02-18 Transition [place] Ar[place] 1.2.840.114 [id number] Univers 00:00:00 00:00:00 of Care Alessandra EMY 350.1.13.10 i ty [place] [id number] [facility] 403 Wanda 2022-02-11 2022-02-17 Inpatient X SCARLETT [facility] [id number] Univers 19:55:00 18:10:00 VALERIANO ity of [facility] 2022-02-11 2022-02-17 [facility] Paula Rowe [facility] 1.2.840.1 14 [id number] Univers 19:55:00 18:10:00 Encounter Valeriano Pantoja HEALTH 350.1.13.1 0 ity of [place] 4.2.7.2.686 [facility] [id number] [facility] 111 [facility] ([facility] 2022-02-02 2022-02-02 Transition [place] Ar[place] 1.2.840.114 [id number] Univers 00:00:00 00:00:00 of Care Alessandra EMY 350.1.13.10 i ty of [place] 4[place]2.7.2.686 [place] [id number] [facility] 403 Branch 2022-01-27 2022-01-31 Inpatient X MARY [facility] [id number] Univers 20:40:00 13:51:[address] [facility] 2022-01-27 2022-01-31 [facility] Paula Rowe [facility] 1.2.840.1 14 [id number] Univers 20:40:00 13:51:00 Encounter Jonas Hernandez DEB 350.1.13.10 ity of [place] 4.2.7.2.686 [place] [id number] [facility] 080 Branch 2022-01-28 2022-01-28 Telephone [facility] 1.2.840.114 [id number] Univers 00:00:00 00:00:00 Layne HEALTH 350.1.13.10 it y of [place] 4.2.7.2.686 [facility] - [id number] Med ical [facility] 144 Branch 2022-01-13 2022-01-13 Transition [place] 1.2.840.114 [id number] Univers 00:00:00 00:00:00 of Care Alessandra EMY 350.1.13.10 i ty [place] 4[place]2.7.2.686 [place] [id number] [facility] 403 Branch 2022-01-12 2022-01-12 Emergency X [facility] ERT [id number] Univers 17:23:00 22:19:[address] [facility] 2022-01-12 2022-01-12 Emergency [facility] 1.2.840.114 [id number] Univers 17:23:00 22:19:00 Joslyn BOYD 350.1.13.10 it[facility] 4.2.7.2.686 [place] [id number] [place] 603714 Branch 2022-01-01 2022-01-12 Inpatient X [facility] [place] [id number] Univers 21:18:00 14:06:00 umberto STACK [facility] 2022-01-01 2022-01-12 [facility] Lashondacarmen Janis Pereira [facility] 1 .2.840.114 [id number] Univers 21:18:00 14:06:00 Encounter Cory Cee [facility] 350.1.13.10 ity of Shahla Andrade 4.2.7.2.686 [facility] [id number] [facility] 111 Branch ([facility]) 2021-12-08 2021-12-09 Emergency X [facility]AGER[facility]ANGELALE[facility] ERT [id number] Univers 22:28:00 00:58:[address] [facility] 2021-12-08 2021-12-09 Emergency [facility] 1.2.840.114 [id number] Univers 22:28:00 00:58:00 Duke BOYD 350.1.13.10 ity of [place].2.[place] [id number] [place] [address] Branch 2021-09-24 2021-09-24 Transition [place] Brewer 1.2.840.114 [id number] Univers 00:00:00 00:00:00 of Care Patria JEFFREY 350.1.13.10 ity [place] [id number] [facility] 403 Branch 2021-09-22 2021-09-23 Inpatient U ENE GIVENS [facility] MPU [id number] Univers 00:05:00 15:03:00 ENE GIVENS i ty of [facility] 2021-09-22 2021-09-23 Hospital Paula Rowe 1.2.840.1 14 [id number] Univers 00:05:00 15:03:00 Encounter Ene Givens 350.1.13.10 ity of HOSPITAL 4.2.7.2.686 Compa as [id number] [facility] 085 Branch 2021-08-01 2021-08-01 Orders Doctor KATELYN 1.2.840.114 [id number] Univers 00:00:00 00:00:00 Only Unassigned, JACKIE 350.1.13.10 ity of Anton [facility] 4.2.7.2.686 Compa as [id number] [facility] 009 Branch 2021-07-23 2021-07-23 Office [facility] 1.2.840.114 [id number] Univers 14:15:00 14:30:00 Visit [facility] [place] 350.1.13.10 it y of [place] 4.2.7.2.686 [place] [facility] [id number] [facility] 144 Wanda 2021-07-23 2021-07-23 Outpatient [facility] [id number] Univers 14:15:00 14:15:00 [facility] 2021-07-23 2021-07-23 Outpatient [facility] [id number] Univers 14:15:00 14:15:[address] [facility] 2021-07-23 2021-07-23 Telephone [facility] 1.2.840.114 [id number] Univers 00:00:00 00:00:00 Laynesteven MENDOZA 350.1.13.10 i ty of [facility] 4.[place].7.2.[place] [id number] [facility] 144 Branch 2021-06-25 2021-06-26 Emergency X JOS [facility] ERT [id number] Univers 21:58:00 03:17:00 APARNA [facility] 2021-06-25 2021-06-26 [facility] 1.2.076.253 [id number] Univers 21:58:00 03:17:00 Aparna BOYD 350.1.13.10 [facility] 4.2.7.2.686 [place] [id number] [place] [address]3714 Branch 2021-02-19 2021-02-19 Outpatient [facility] [id number] Univers 00:00:00 00:00:00 [facility] 2020-02-01 2020-02-01 Outpatient Andrea [facility] [id number] Univers 00:00:00 00:00:00 [facility] 2019-09-01 2019-09-01 Outpatient Andrea [facility] [id number] Univers 14:41:55 23:59:00 GAB [facility] 2019-08-04 2019-08-04 Outpatient Andrea [facility] [id number] Univers 17:13:44 23:59:00 JUNE [facility] Results Test Description Test Time Test Comments Results Result Comments Source POCT GLUCOSE (AUTOMATED) 2022-08-10 20:26:18 Test Item Value Reference Range Interpretation Comme nts POCT GLU (test code = 1016021783) 178 mg/dL 70-110 H Lab Interpretation (test code = 56307-0) Abnormal [facility] GLUCOSE (AUTOMATED)2022-08-10 20:26:17 Test Item Value Reference Range Interpretation Comments POCT GLU (test code = 9364292749) 134 mg/dL 70-110 H Lab Interpretation (test code = Abnormal 65577-0) [facility] GLUCOSE (AUTOMATED)2022-08-10 09:35:52 Test Item Value Reference Range Interpretation Comments POCT GLU (test code = 6825045766) 240 mg/dL 70-110 H Lab Interpretation (test code = Abnormal 80887-5) [facility] GLUCOSE (AUTOMATED)2022-08-10 06:09:42 Test Item Value Reference Range Interpretation Comments POCT GLU (test code = 6340927934) 219 mg/dL 70-110 H Lab Interpretation (test code = Abnormal 21784-3) [facility] GLUCOSE (AUTOMATED)2022-08-10 02:27:50 Test Item Value Reference Range Interpretation Comments POCT GLU (test code = 2335136225) 264 mg/dL 70-110 H Lab Interpretation (test code = Abnormal 70151-0) [facility] GLUCOSE (AUTOMATED)2022-08-09 22:32:46 Test Item Value Reference Range Interpretation Comments POCT GLU (test code = 5589455324) 327 mg/dL 70-110 H Lab Interpretation (test code = Abnormal 78990-3) [facility] GLUCOSE (AUTOMATED)2022-08-09 13:19:52 Test Item Value Reference Range Interpretation Comments POCT GLU (test code = 6703945098) 196 mg/dL 70-110 H Lab Interpretation (test code = Abnormal 92398-6) [facility] 12:10[facility]11 Test Item Value Reference Range Interpretation Comments MAGNESIUM (test code = 4909195458) 2.5 mg/dL 1.7-2.4 H Lab Interpretation (test code = Abnormal 06378-0) [facility] METABOLIC PANEL (NA, K, CL, CO2, GLUCOSE, BUN, CREATININE, CA)2022-08-09 12:10:06 Test Item Value Reference Range Interpretation Comments NA (test code = 137 mmol/L 135-145 5861318559) K (test code = 4.3 mmol/L 3.5-5.0 1714060276) CL (test code = 101 mmol/L 98-108 8491902014) CO2 TOTAL (test code = 35 mmol/L 23-31 H 6564935418) AGAP (test code = 2-16 L 5879143753) BUN (test code = 22 mg/dL 7-23 8587726564) GLUCOSE (test code = 186 mg/dL 70-110 H 9203202267) CREATININE (test code = 0.82 mg/dL 0.50-1.04 5842739811) CALCIUM (test code = 8.2 mg/dL 8.6-10.6 L 3698175338) eGFR (test code = mL/min/1.73m2 7450012906) JENNIFFER (test code = JENNIFFER) Association of Glomerular Filtration Rate (GFR) and Staging of Kidney Disease* + --+ --+ ------+| GFR (mL/min/1.73 m2) ?| With Kidney Damage ?| ?Without Kidney Damage+ --------+ --------+ +| ?>90 ?| ?Stage one ?| ? Normal ?+ ---+ ---+ -------+| ?60-89 ?| ?Stage two ?| ? Decreased GFR ? + --+ --+ ------+| ?30-59 ?| ?Stage three ?| ? Stage three ? + --+ --+ ------+| ?15-29 ?| ?Stage four ? | ? Stage four ?+ ---+ ---+ -------+| ?<15 (or dialysis) ? ?| ?Stage five ? | ? Stage five ?+ ---+ ---+ -------+ *Each stage assumes the associated GFR level has been in effect for at least three months. ?Stages 1 to 5, with or without kidney disease, indicate chronic kidney disease. Notes: Determination of stages one and two (with eGFR >59mL/min/1.73 m2) requires estimation of kidney damage for at least three months as defined by structural or functional abnormalities of the kidney, manifested by either:Pathological abnormalities or Markers of kidney damage (including abnormalities in the composition of the blood or urine or abnormalities in imaging tests). Lab Interpretation Abnormal (test code = 31934-2) [facility] 12:09:46 Test Item Value Reference Range Interpretation Comments PHOSPHORUS (test code = 1861755874) 3.2 mg/dL 2.5-5.0 Lab Interpretation (test code = Normal 82162-2) [facility] WITH TKTL3990-32-63 12:03:07 Test Item Value Reference Range Interpretation Comments WBC (test code = See_Comment [Automated 3790-2) message] The sy stem which generated this result transmitted reference range : 4.30 - 11.10 10*3/?L. The reference range was not used to interpret this result as normal/abnormal . RBC (test code = See_Comment L [Automated 389-8) message] The sy stem which generated this result transmitted reference range : 3.93 - 5.25 10*6/?L. The reference range was not used to interpret this result as normal/abnormal . HGB (test code = 9.9 g/dL 11.6-15.0 L 718-7) HCT (test code = 31.6 % 35.7-45.2 L 4544-3) MCV (test code = 89.8 fL 80.6-95.5 787-2) MCH (test code = 28.1 pg 25.9-32.8 785-6) MCHC (test code = 31.3 g/dL 31.6-35.1 L 786-4) RDW-SD (test code = 47.1 fL 39.0-49.9 63362-3) RDW-CV (test code = 14.6 % 12.0-15.5 788-0) PLT (test code = See_Comment [Automated 777-3) message] The sy stem which generated this result transmitted reference range : 166 - 358 10*3/ ?L. The reference r josselyn was not used to interpret this result as normal/abnormal . MPV (test code = 9.5 fL 9.5-12.9 13338-4) NRBC/100 WBC (test See_Comment [Automat ed code = 4776689260) message] The system which generated this result transmitted reference range : 0.0 - 10.0 /100 WBCs. The refer ence range was not u sed to interpret th is result as normal/abnormal . NRBC x10^3 (test code See_Comment [Auto mated = 7396898968) message] The s ystem which generated this result transmitted reference range : 10*3/?L. The reference range was not used to interpret this result as normal/abnormal . GRAN MAT (NEUT) % 85.8 % (test code = 770-8) IMM GRAN % (test code 2.50 % = 3418092089) LYMPH % (test code = 6.7 % 736-9) MONO % (test code = 4.8 % 5905-5) EOS % (test code = 0.1 % 713-8) BASO % (test code = 0.1 % 706-2) GRAN MAT x10^3(ANC) 7.74 10*3/uL 1.88-7.09 H (test code = 1194321375) IMM GRAN x10^3 (test 0.23 10*3/uL 0.00-0.06 H code = 4670061207) LYMPH x10^3 (test code 0.60 10*3/uL 1.32-3.29 L = 731-0) MONO x10^3 (test code 0.43 10*3/uL 0.33-0.92 = 742-7) EOS x10^3 (test code = 0.03-0.39 L 711-2) BASO x10^3 (test code 0.01-0.07 = 704-7) Lab Interpretation Abnormal (test code = 22367-2) [facility] GLUCOSE (AUTOMATED)2022-08-09 11:54:17 Test Item Value Reference Range Interpretation Comments POCT GLU (test code = 4771345598) 202 mg/dL 70-110 H Lab Interpretation (test code = Abnormal 56267-2) [facility] GLUCOSE (AUTOMATED)2022-08-09 06:19:48 Test Item Value Reference Range Interpretation Comments POCT GLU (test code = 8509766643) 231 mg/dL 70-110 H Lab Interpretation (test code = Abnormal 00983-2) [facility] GLUCOSE (AUTOMATED)2022-08-09 02:32:58 Test Item Value Reference Range Interpretation Comments POCT GLU (test code = 8724981751) 316 mg/dL 70-110 H Lab Interpretation (test code = Abnormal 49089-6) [facility] GLUCOSE (AUTOMATED)2022-08-09 02:28:52 Test Item Value Reference Range Interpretation Comments POCT GLU (test code = 3235786741) 363 mg/dL 70-110 H Lab Interpretation (test code = Abnormal 68707-3) [facility] GLUCOSE (AUTOMATED)2022-08-08 17:32:51 Test Item Value Reference Range Interpretation Comments POCT GLU (test code = 6193224091) 201 mg/dL 70-110 H Lab Interpretation (test code = Abnormal 22651-0) [facility] GLUCOSE (AUTOMATED)2022-08-08 17:32:51 Test Item Value Reference Range Interpretation Comments POCT GLU (test code = 2266717240) 251 mg/dL 70-110 H Lab Interpretation (test code = Abnormal 36432-7) [facility] GLUCOSE (AUTOMATED)2022-08-08 10:02:25 Test Item Value Reference Range Interpretation Comments POCT GLU (test code = 4539038577) 153 mg/dL 70-110 H Lab Interpretation (test code = Abnormal 80306-2) [facility] GLUCOSE (AUTOMATED)2022-08-08 06:20:09 Test Item Value Reference Range Interpretation Comments POCT GLU (test code = 3805584296) 224 mg/dL 70-110 H Lab Interpretation (test code = Abnormal 62255-6) [facility] GLUCOSE (AUTOMATED)2022-08-08 02:43:59 Test Item Value Reference Range Interpretation Comments POCT GLU (test code = 5918878154) 256 mg/dL 70-110 H Lab Interpretation (test code = Abnormal 86180-2) [facility] GLUCOSE (AUTOMATED)2022-08-07 22:28:36 Test Item Value Reference Range Interpretation Comments POCT GLU (test code = 3961734212) 273 mg/dL 70-110 H Lab Interpretation (test code = Abnormal 16802-6) [facility] 22:15:07 Test Item Value Reference Range Interpretation Comments Height (test code = in 3482477121) Weight (test code = lbs 4488058488) Systolic BP (test code = mmHg 6224974269) Diastolic BP (test code mmHg = 7122150588) Heart Rate (test code = bpm 8584264444) BSA (test code = 1.96 m2 6395221950) Ao root diam (test code 3.30 cm = 2733129349) Aortic root (test code = 3.3 cm 3697561081) Ao root annulus (test 3.3 cm code = 3835410841) LVOT diameter (test code 1.80 cm = 0920119887) LVOT area (test code = 2.60 cm2 0470845238) LVIDD (test code = 3.50 cm 8737446510) Left Ventricular End 51.9 mL Diastolic Volume by Teichholz Method (test code = 3869514) IVS (test code = 1.24 cm 5817203662) Interventricular Septum 1.24 cm Diastolic Thickness by 2D (test code = 8264598) LVPWD (test code = 1.24 cm 0351274243) PW (test code = 1.24 cm 0.6-1.9 9153424834) EF(Teich) (test code = 58.70 % 4894370762) LVIDS (test code = 2.46 cm 6447106293) Left Ventricular End 21.4 mL Systolic Volume by Teichholz Method (test code = 0342962) FS (test code = 30 % 1548738360) EF - 2D (test code = 58.70 % 51628636) LA size (test code = 2.9 cm 6864038933) MV Peak E Marva (test code 81.4 cm/s = 4045424264) MV stenosis pressure 1/2 76.6 ms time (test code = 6035153418) E wave decelartion time 0.26 s (test code = 3461244020) MV Peak A Marva (test code 87.8 cm/s = 6298053514) E/A ratio (test code = ratio 8627650588) MV Prop V (test code = 139.40 cm/s 6922115204) MV E/e' septal (test 7.4 cm/s code = 8413497440) Tapse (test code = 1.61 cm 2724237480) LVOT stroke volume (test 53.30 cm3 code = 4864182076) LVOT peak marva (test code 128.1 cm/s = 9436676494) LVOT mn grad (test code mmHg = 3758744920) AV LVOT peak gradient mmHg (test code = 7709779627) LVOT peak VTI (test code 20.9 cm = 0286584457) LV V1 mean (test code = 86.80 cm/s 3514080972) Aortic valve mean 119.8 cm/s velocity (test code = 2094898444) Ao peak marva (test code = 175.1 cm/s 5998376353) Ao VTI (test code = 28.5 cm 5068135452) AV area by cont VTI 1.9 cm2 (test code = 7714865062) AV area peak marva (test 1.9 cm2 code = 9949345842) Ao max PG (test code = 12.30 mm[Hg] 9022696194) AV peak gradient (test mmHg code = 4915848795) AV valve area (test code 1.87 cm2 = 1651596728) AV mean gradient (test mmHg code = 3196747762) Radiology Study observation (narrative) (test code = 04612-1) JENNIFFER (test code = JENNIFFER) Table formatting from the original result was not included. ?Left?Ventricle: Normal systolic function with a visually estimated EF of 60 - 65%. There is impaired relaxation. ?Tricuspid?Valve: Trace transvalvular regurgitation. Insufficient regurgant jet to estimate RVSP. ?RA pressure is 10-15 mmHg. ?Pericardium: Trivial pericardial effusion present. VitalsHeight Weight BSA (Calculated - sq m) BP Pulse 5' 1" (1.549 m) 230 lb (104.3 kg) 2.12 sq meters 118/66 96 Left VentricleLeft ventricle size is normal. Normal wall thickness. Septal motion is normal. Normal wall motion. Normal systolic function with a visually estimated EF of 60 - 65%. There is impaired relaxation.Right VentricleRight ventricle size is normal. Unable to assess systolic function.Left AtriumLeft atrium size is normal.Right AtriumRight atrium size is normal.Mitral ValveNot well visualized. No transvalvular regurgitation. No stenosis.Tricuspid ValveNot well visualized. Trace transvalvular regurgitation. Insufficient regurgant jet to estimate RVSP. RA pressure is 10-15 mmHg. No stenosis.Aortic ValveNot well visualized. No transvalvular regurgitation. No evidence of aortic stenosis.Pulmonic ValveNot well visualized. Trace transvalvular regurgitation. No stenosis.Ascending AortaNormal sized annulus.PericardiumEv idence of epicardial fat. Trivial pericardial effusion present.Study DetailsStudy quality experienced technical difficulty. A complete echocardiogram was performed using 2D, color flow Doppler and spectral Doppler. 5 mL of Lumason ultrasound enhancing agent used. [facility]57 Test Item Value Reference Range Interpretation Comments POCT GLU (test code = 168 mg/dL 70-110 H Notifi ed Provider [id number]) Lab Interpretation (test Abnormal code = 90660-7) [facility] [id number] 14:57:11 Test Item Value Reference Range Interpretation Comments TSH (test code = See_Comment Biotin has been 3173036716) reported to cau se a negative bias, interpret resul ts relative to pat ient's use of biotin. [Automated mess age] The system whic h generated this result transmitted ref erence range: 0.45 - 4 .70 mIU/L. The refe rence range was not u sed to interpret this result as normal/abnor mal. Lab Interpretation (test Normal code = 56024-8) [facility] GLUCOSE (AUTOMATED)2022-08-07 13:46:07 Test Item Value Reference Range Interpretation Comments POCT GLU (test code = 7626420011) 180 mg/dL 70-110 H Lab Interpretation (test code = Abnormal 92032-2) [facility] GLUCOSE (AUTOMATED)2022-08-07 12:34:16 Test Item Value Reference Range Interpretation Comments POCT GLU (test code = 1883776060) 198 mg/dL 70-110 H Lab Interpretation (test code = Abnormal 57873-6) [facility] [id number] 12:27:41 Test Item Value Reference Interpretation Comments Range TROPONIN I (test 0.005 ng/mL See_Comment [Automated code = 1674823068) message] The system which generated this result transmitted reference range : <=0.034. The reference range was not used to interpret this result as normal/abnormal . JENNIFFER (test code = Reference (Normal) JENNIFFER) Range (defined by the 99th percentile reference limit): <= 0.034 ng/mL Note: Cardiac troponin begins to rise 3-4 hours after the onset of ischemia. Repeat in 4-6 hours if the sample was drawn within 3-4 hours of the onset of the symptom and found normal. Diagnosis of myocardial injury is made with acute changes in cTn concentrations with at least one serial sample above the 99th percentile upper reference limit (URL), taken together with the patient's clinical presentation. Biotin has been reported to cause a negative bias, interpret results relative to patient's use of biotin. Lab Interpretation Normal (test code = 81768-4) [id number] 12:24:19 Test Item Value Reference Range Interpretation Comments NT-proBNP (test code 332 pg/mL See_Comment H [Autom ated = 4288297813) message] The system which generated this result transmitted reference range : <=125. The reference range was not used to interpret this result as normal/abnormal . JENNIFFER (test code = JENNIFFER) Biotin has been reported to cause a negative bias, interpret results relative to patient's use of biotin. Lab Interpretation Abnormal (test code = 43577-5) [facility]. METABOLIC PANEL (78072)2022-08-07 12:17:19 Test Item Value Reference Range Interpretation Comments NA (test code = 137 mmol/L 135-145 6467491270) K (test code = 4.3 mmol/L 3.5-5.0 2034831928) CL (test code = 103 mmol/L 98-108 1263035906) CO2 TOTAL (test code = 30 mmol/L 23-31 3679109773) AGAP (test code = 2-16 4170136437) BUN (test code = 30 mg/dL 7-23 H 6726601833) GLUCOSE (test code = 198 mg/dL 70-110 H 2959773670) CREATININE (test code = 0.93 mg/dL 0.50-1.04 2088327373) TOTAL BILI (test code = 0.4 mg/dL 0.1-1.0 1170811217) CALCIUM (test code = 8.3 mg/dL 8.6-10.6 L 0508140446) T PROTEIN (test code = 6.0 g/dL 6.3-8.2 L 4363430755) ALBUMIN (test code = 3.2 g/dL 3.5-5.0 L 7605743634) ALK PHOS (test code = 70 U/L 34-122 2037278218) ALTv (test code = 23 U/L 5-35 1742-6) AST(SGOT) (test code = 22 U/L 13-40 9059343128) eGFR (test code = mL/min/1.73m2 2338162169) JENNIFFER (test code = JENNIFFER) Association of Glomerular Filtration Rate (GFR) and Staging of Kidney Disease* + --+ --+ ------+| GFR (mL/min/1.73 m2) ?| With Kidney Damage ?| ?Without Kidney Damage+ --------+ --------+ +| ?>90 ?| ?Stage one ?| ? Normal ?+ ---+ ---+ -------+| ?60-89 ?| ?Stage two ?| ? Decreased GFR ? + --+ --+ ------+| ?30-59 ?| ?Stage three ?| ? Stage three ? + --+ --+ ------+| ?15-29 ?| ?Stage four ? | ? Stage four ?+ ---+ ---+ -------+| ?<15 (or dialysis) ? ?| ?Stage five ? | ? Stage five ?+ ---+ ---+ -------+ *Each stage assumes the associated GFR level has been in effect for at least three months. ?Stages 1 to 5, with or without kidney disease, indicate chronic kidney disease. Notes: Determination of stages one and two (with eGFR >59mL/min/1.73 m2) requires estimation of kidney damage for at least three months as defined by structural or functional abnormalities of the kidney, manifested by either:Pathological abnormalities or Markers of kidney damage (including abnormalities in the composition of the blood or urine or abnormalities in imaging tests). Lab Interpretation Abnormal (test code = 78272-6) [facility]:17[facility]19 Test Item Value Reference Range Interpretation Comments MAGNESIUM (test code = 1641091561) 2.4 mg/dL 1.7-2.4 Lab Interpretation (test code = Normal 15913-5) [facility] 12:16:59 Test Item Value Reference Range Interpretation Comments PHOSPHORUS (test code = 2270975214) 3.3 mg/dL 2.5-5.0 Lab Interpretation (test code = Normal 66406-3) [facility] [id number] 12:16:18 Test Item Value Reference Range Interpretation Comments WBC (test code = See_Comment H [Automated 7190-2) message] The system which generated this result transmit alden reference range : 4.30 - 11.10 10*3/?L. The reference range was not used to interpret this result as normal/abnormal . RBC (test code = See_Comment L [Automated 089-8) message] The system which generated this result transmit alden reference range : 3.93 - 5.25 10*6/?L. The reference range was not used to interpret this result as normal/abnormal . HGB (test code = 10.2 g/dL 11.6-15.0 L 718-7) HCT (test code = 31.7 % 35.7-45.2 L 4544-3) MCV (test code = 91.1 fL 80.6-95.5 787-2) MCH (test code = 29.3 pg 25.9-32.8 785-6) MCHC (test code = 32.2 g/dL 31.6-35.1 786-4) RDW-SD (test code = 50.2 fL 39.0-49.9 H 25022-9) RDW-CV (test code = 15.1 % 12.0-15.5 788-0) PLT (test code = See_Comment [Automated 777-3) message] The system which generated this result transmit alden reference range : 166 - 358 10*3/ ?L. The reference range was not u sed to interpret th is result as normal/abnormal . MPV (test code = 10.0 fL 9.5-12.9 39970-6) NRBC/100 WBC (test See_Comment [Automat ed code = 1700874858) message] The system which generated this result transmit alden reference range : 0.0 - 10.0 /100 WBCs. The reference range was not used to interpret this result as normal/abnormal . NRBC x10^3 (test code See_Comment [Auto mated = 5598985460) message] The system which generated this result transmit alden reference range : 10*3/?L. The reference range was not used to interpret this result as normal/abnormal . GRAN MAT (NEUT) % 87.7 % (test code = 770-8) IMM GRAN % (test code 1.10 % = 2186046133) LYMPH % (test code = 7.7 % 736-9) MONO % (test code = 3.4 % 5905-5) EOS % (test code = 0.0 % 713-8) BASO % (test code = 0.1 % 706-2) GRAN MAT x10^3(ANC) 11.83 10*3/uL 1.88-7.09 H (test code = 7200958472) IMM GRAN x10^3 (test 0.15 10*3/uL 0.00-0.06 H code = 0430400611) LYMPH x10^3 (test code 1.04 10*3/uL 1.32-3.29 L = 731-0) MONO x10^3 (test code 0.46 10*3/uL 0.33-0.92 = 742-7) EOS x10^3 (test code = 0.03-0.39 L 711-2) BASO x10^3 (test code 0.01-0.07 = 704-7) Lab Interpretation Abnormal (test code = 07861-7) [facility]BILI [id number] 12:16:18 Test Item Value Reference Range Interpretation Comments BILI CONJ (test code = 0264178263) 0.0 mg/dL 0.0-0.3 BILI UNCON (test code = 4083687173) 0.2 mg/dL 0.1-1.1 Lab Interpretation (test code = Normal 85822-1) [facility] GLUCOSE (AUTOMATED)2022-08-07 10:20:14 Test Item Value Reference Range Interpretation Comments POCT GLU (test code = 4552160883) 227 mg/dL 70-110 H Lab Interpretation (test code = Abnormal 69778-5) [facility] GLUCOSE (AUTOMATED)2022-08-07 05:43:17 Test Item Value Reference Range Interpretation Comments POCT GLU (test code = 6583765662) 162 mg/dL 70-110 H Lab Interpretation (test code = Abnormal 92976-2) [facility] GLUCOSE (AUTOMATED)2022-08-07 02:28:42 Test Item Value Reference Range Interpretation Comments POCT GLU (test code = 4654436174) 229 mg/dL 70-110 H Lab Interpretation (test code = Abnormal 59382-9) [facility] GLUCOSE (AUTOMATED)2022-08-06 17:18:17 Test Item Value Reference Range Interpretation Comments POCT GLU (test code = 3585477570) 223 mg/dL 70-110 H Lab Interpretation (test code = Abnormal 56808-3) [facility]Lasc[facility] Whole [id number] 13:38:44 Test Item Value Reference Range Interpretation Comments LACTIC ACID (test code = 1.93 mmol/L 0.50-2.20 2610647902) Lab Interpretation (test code = Normal 50673-1) [facility] 13:29:26 Test Item Value Reference Range Interpretation Comments POCT GLU (test code = 1297151332) 261 mg/dL 70-110 H Lab Interpretation (test code = Abnormal 78362-8) [facility] [id number] 12:40:18 Test Item Value Reference Interpretation Comments Range TROPONIN I (test 0.002 ng/mL See_Comment [Automated code = 9186090281) message] The system which generated this result transmitted reference range : <=0.034. The reference range was not used to interpret this result as normal/abnormal . JENNIFFER (test code = Reference (Normal) JENNIFFER) Range (defined by the 99th percentile reference limit): <= 0.034 ng/mL Note: Cardiac troponin begins to rise 3-4 hours after the onset of ischemia. Repeat in 4-6 hours if the sample was drawn within 3-4 hours of the onset of the symptom and found normal. Diagnosis of myocardial injury is made with acute changes in cTn concentrations with at least one serial sample above the 99th percentile upper reference limit (URL), taken together with the patient's clinical presentation. Biotin has been reported to cause a negative bias, interpret results relative to patient's use of biotin. Lab Interpretation Normal (test code = 41211-2) [facility] [id number] 12:37:16 Test Item Value Reference Range Interpretation Comments NT-proBNP (test code 480 pg/mL See_Comment H [Autom ated = 7885358123) message] The system which generated this result transmitted reference range : <=125. The reference range was not used to interpret this result as normal/abnormal . JENNIFFER (test code = JENNIFFER) Biotin has been reported to cause a negative bias, interpret results relative to patient's use of biotin. Lab Interpretation Abnormal (test code = 04741-2) [facility] (51197)2022-08-06 12:28:53 Test Item Value Reference Range Interpretation Comments NA (test code = 136 mmol/L 135-145 9906002902) K (test code = 4.3 mmol/L 3.5-5.0 5962877241) CL (test code = 99 mmol/L 98-108 2376614036) CO2 TOTAL (test code = 36 mmol/L 23-31 H 2254045950) AGAP (test code = 2-16 L 9152144553) BUN (test code = 30 mg/dL 7-23 H 4228667927) GLUCOSE (test code = 246 mg/dL 70-110 H 8644331620) CREATININE (test code = 0.94 mg/dL 0.50-1.04 3651154510) TOTAL BILI (test code = 0.5 mg/dL 0.1-1.6 7937008444) CALCIUM (test code = 8.6 mg/dL 8.6-10.6 3456187556) T PROTEIN (test code = 5.9 g/dL 6.3-8.2 L 1428110612) ALBUMIN (test code = 3.2 g/dL 3.5-5.0 L 7839603492) ALK PHOS (test code = 81 U/L 34-122 7497004682) ALTv (test code = 24 U/L 5-35 1742-6) AST(SGOT) (test code = 23 U/L 13-40 1201268308) eGFR (test code = mL/min/1.73m2 7281582597) JENNIFFER (test code = JENNIFFER) Association of Glomerular Filtration Rate (GFR) and Staging of Kidney Disease* + --+ --+ ------+| GFR (mL/min/1.73 m2) ?| With Kidney Damage ?| ?Without Kidney Damage+ --------+ --------+ +| ?>90 ?| ?Stage one ?| ? Normal ?+ ---+ ---+ -------+| ?60-89 ?| ?Stage two ?| ? Decreased GFR ? + --+ --+ ------+| ?30-59 ?| ?Stage three ?| ? Stage three ? + --+ --+ ------+| ?15-29 ?| ?Stage four ? | ? Stage four ?+ ---+ ---+ -------+| ?<15 (or dialysis) ? ?| ?Stage five ? | ? Stage five ?+ ---+ ---+ -------+ *Each stage assumes the associated GFR level has been in effect for at least three months. ?Stages 1 to 5, with or without kidney disease, indicate chronic kidney disease. Notes: Determination of stages one and two (with eGFR >59mL/min/1.73 m2) requires estimation of kidney damage for at least three months as defined by structural or functional abnormalities of the kidney, manifested by either:Pathological abnormalities or Markers of kidney damage (including abnormalities in the composition of the blood or urine or abnormalities in imaging tests). Lab Interpretation Abnormal (test code = 02092-6) [facility] 12:28:53 Test Item Value Reference Range Interpretation Comments MAGNESIUM (test code = 6806281521) 2.2 mg/dL 1.7-2.4 Lab Interpretation (test code = Normal 78340-7) [facility] 12:28:33 Test Item Value Reference Range Interpretation Comments PHOSPHORUS (test code = 7250961412) 2.9 mg/dL 2.5-5.0 Lab Interpretation (test code = Normal 87779-0) [facility]CREAT[facility] [id number] 12:28:13 Test Item Value Reference Range Interpretation Comments CK (test code = 8331958402) 21 U/L 33-194 L Lab Interpretation (test code = Abnormal 87640-3) [facility] GLUCOSE (AUTOMATED)2022-08-06 11:29:35 Test Item Value Reference Range Interpretation Comments POCT GLU (test code = 1442015639) 275 mg/dL 70-110 H Lab Interpretation (test code = Abnormal 31918-0) [facility] GLUCOSE (AUTOMATED)2022-08-06 06:56:17 Test Item Value Reference Range Interpretation Comments POCT GLU (test code = 1169911413) 248 mg/dL 70-110 H Lab Interpretation (test code = Abnormal 19519-1) [facility] GLUCOSE (AUTOMATED)2022-08-06 02:34:33 Test Item Value Reference Range Interpretation Comments POCT GLU (test code = 9905895860) 255 mg/dL 70-110 H Lab Interpretation (test code = Abnormal 98098-7) [facility] GLUCOSE (AUTOMATED)2022-08-05 23:01:47 Test Item Value Reference Range Interpretation Comments POCT GLU (test code = 9833390538) 277 mg/dL 70-110 H Lab Interpretation (test code = Abnormal 00464-7) [facility] [id number] 22:36:41 Test Item Value Reference Interpretation Comments Range TROPONIN I (test 0.001 ng/mL See_Comment [Automated code = 8877326316) message] The system which generated this result transmitted reference range : <=0.034. The reference range was not used to interpret this result as normal/abnormal . JENNIFFER (test code = Reference (Normal) JENNIFFER) Range (defined by the 99th percentile reference limit): <= 0.034 ng/mL Note: Cardiac troponin begins to rise 3-4 hours after the onset of ischemia. Repeat in 4-6 hours if the sample was drawn within 3-4 hours of the onset of the symptom and found normal. Diagnosis of myocardial injury is made with acute changes in cTn concentrations with at least one serial sample above the 99th percentile upper reference limit (URL), taken together with the patient's clinical presentation. Biotin has been reported to cause a negative bias, interpret results relative to patient's use of biotin. Lab Interpretation Normal (test code = 90948-5) [facility] GLUCOSE (AUTOMATED)2022-08-05 17:57:05 Test Item Value Reference Range Interpretation Comments POCT GLU (test code = 8377112035) 306 mg/dL 70-110 H Lab Interpretation (test code = Abnormal 91428-3) [facility] GLUCOSE (AUTOMATED)2022-08-05 13:44:12 Test Item Value Reference Range Interpretation Comments POCT GLU (test code = 0300090628) 376 mg/dL 70-110 H Lab Interpretation (test code = Abnormal 47391-9) [facility] [id number] 04:02:57 Test Item Value Reference Interpretation Comments Range TROPONIN I (test 0.001 ng/mL See_Comment [Automated code = 0464490560) message] The system which generated this result transmitted reference range : <=0.034. The reference range was not used to interpret this result as normal/abnormal . JENNIFFER (test code = Reference (Normal) JENNIFFER) Range (defined by the 99th percentile reference limit): <= 0.034 ng/mL Note: Cardiac troponin begins to rise 3-4 hours after the onset of ischemia. Repeat in 4-6 hours if the sample was drawn within 3-4 hours of the onset of the symptom and found normal. Diagnosis of myocardial injury is made with acute changes in cTn concentrations with at least one serial sample above the 99th percentile upper reference limit (URL), taken together with the patient's clinical presentation. Biotin has been reported to cause a negative bias, interpret results relative to patient's use of biotin. Lab Interpretation Normal (test code = 82826-1) [facility] [id number] 03:59:58 Test Item Value Reference Range Interpretation Comments NT-proBNP (test code 100 pg/mL See_Comment [Autom ated = 3052273568) message] The system which generated this result transmitted reference range : <=125. The reference range was not used to interpret this result as normal/abnormal . JENNIFFER (test code = JENNIFFER) Biotin has been reported to cause a negative bias, interpret results relative to patient's use of biotin. Lab Interpretation Normal (test code = 82629-6) [facility] (93736)2022-06-05 03:50:53 Test Item Value Reference Range Interpretation Comments NA (test code = 139 mmol/L 135-145 4020400285) K (test code = 5.0 mmol/L 3.5-5.0 4387838085) CL (test code = 96 mmol/L 98-108 L 6614649335) CO2 TOTAL (test code = 38 mmol/L 23-31 H 4824534541) AGAP (test code = 2-16 5922404234) BUN (test code = 19 mg/dL 7-23 3829396921) GLUCOSE (test code = 186 mg/dL 70-110 H 6312609900) CREATININE (test code = 0.83 mg/dL 0.50-1.04 1161815420) TOTAL BILI (test code = 0.8 mg/dL 0.1-1.0 5359250341) CALCIUM (test code = 8.9 mg/dL 8.6-10.6 9504686706) T PROTEIN (test code = 7.4 g/dL 6.3-8.2 9712476428) ALBUMIN (test code = 4.3 g/dL 3.5-5.0 7543161556) ALK PHOS (test code = 102 U/L 34-122 6109135792) ALTv (test code = 33 U/L 5-35 2-6) AST(SGOT) (test code = 40 U/L 13-40 5054977487) eGFR (test code = mL/min/1.73m2 5278266959) JENNIFFER (test code = JENNIFFER) Association of Glomerular Filtration Rate (GFR) and Staging of Kidney Disease* + --+ --+ ------+| GFR (mL/min/1.73 m2) ?| With Kidney Damage ?| ?Without Kidney Damage+ --------+ --------+ +| ?>90 ?| ?Stage one ?| ? Normal ?+ ---+ ---+ -------+| ?60-89 ?| ?Stage two ?| ? Decreased GFR ? + --+ --+ ------+| ?30-59 ?| ?Stage three ?| ? Stage three ? + --+ --+ ------+| ?15-29 ?| ?Stage four ? | ? Stage four ?+ ---+ ---+ -------+| ?<15 (or dialysis) ? ?| ?Stage five ? | ? Stage five ?+ ---+ ---+ -------+ *Each stage assumes the associated GFR level has been in effect for at least three months. ?Stages 1 to 5, with or without kidney disease, indicate chronic kidney disease. Notes: Determination of stages one and two (with eGFR >59mL/min/1.73 m2) requires estimation of kidney damage for at least three months as defined by structural or functional abnormalities of the kidney, manifested by either:Pathological abnormalities or Markers of kidney damage (including abnormalities in the composition of the blood or urine or abnormalities in imaging tests). Lab Interpretation Abnormal (test code = 09230-0) [facility] WITH [id number] 03:35:15 Test Item Value Reference Range Interpretation Comments WBC (test code = See_Comment [Automated 4378-2) message] The sy stem which generated this result transmitted reference range : 4.30 - 11.10 10*3/?L. The reference range was not used to interpret this result as normal/abnormal . RBC (test code = See_Comment [Automated 789-8) message] The sy stem which generated this result transmitted reference range : 3.93 - 5.25 10*6/?L. The reference range was not used to interpret this result as normal/abnormal . HGB (test code = 11.1 g/dL 11.6-15.0 L 718-7) HCT (test code = 35.2 % 35.7-45.2 L 4544-3) MCV (test code = 88.7 fL 80.6-95.5 787-2) MCH (test code = 28.0 pg 25.9-32.8 785-6) MCHC (test code = 31.5 g/dL 31.6-35.1 L 786-4) RDW-SD (test code = 49.0 fL 39.0-49.9 03304-3) RDW-CV (test code = 15.4 % 12.0-15.5 788-0) PLT (test code = See_Comment [Automated 777-3) message] The sy stem which generated this result transmitted reference range : 166 - 358 10*3/ ?L. The reference r josselyn was not used to interpret this result as normal/abnormal . MPV (test code = 9.0 fL 9.5-12.9 L 53025-1) NRBC/100 WBC (test See_Comment [Automat ed code = 4463005650) message] The system which generated this result transmitted reference range : 0.0 - 10.0 /100 WBCs. The refer ence range was not u sed to interpret th is result as normal/abnormal . NRBC x10^3 (test code See_Comment [Auto mated = 6563866942) message] The s ystem which generated this result transmitted reference range : 10*3/?L. The reference range was not used to interpret this result as normal/abnormal . GRAN MAT (NEUT) % 85.5 % (test code = 770-8) IMM GRAN % (test code 0.60 % = 7490294465) LYMPH % (test code = 7.7 % 736-9) MONO % (test code = 4.0 % 5905-5) EOS % (test code = 1.6 % 713-8) BASO % (test code = 0.6 % 706-2) GRAN MAT x10^3(ANC) 8.05 10*3/uL 1.88-7.09 H (test code = 7719241378) IMM GRAN x10^3 (test 0.06 10*3/uL 0.00-0.06 code = 0873865396) LYMPH x10^3 (test code 0.73 10*3/uL 1.32-3.29 L = 731-0) MONO x10^3 (test code 0.38 10*3/uL 0.33-0.92 = 742-7) EOS x10^3 (test code = 0.15 10*3/uL 0.03-0.39 711-2) BASO x10^3 (test code 0.06 10*3/uL 0.01-0.07 = 704-7) Lab Interpretation Abnormal (test code = 51738-0) [id number]12 Test Item Value Reference Interpretation Comments Range TROPONIN I (test 0.002 ng/mL See_Comment [Automated code = 4227484619) message] The system which generated this result transmitted reference range : <=0.034. The reference range was not used to interpret this result as normal/abnormal . JENNIFFER (test code = Reference (Normal) JENNIFFER) Range (defined by the 99th percentile reference limit): <= 0.034 ng/mL Note: Cardiac troponin begins to rise 3-4 hours after the onset of ischemia. Repeat in 4-6 hours if the sample was drawn within 3-4 hours of the onset of the symptom and found normal. Diagnosis of myocardial injury is made with acute changes in cTn concentrations with at least one serial sample above the 99th percentile upper reference limit (URL), taken together with the patient's clinical presentation. Biotin has been reported to cause a negative bias, interpret results relative to patient's use of biotin. Lab Interpretation Normal (test code = 87677-2) [id number] 06:23:11 Test Item Value Reference Range Interpretation Comments NT-proBNP (test code 81 pg/mL See_Comment [Autom ated = 1604185789) message] The system which generated this result transmitted reference range : <=125. The reference range was not used to interpret this result as normal/abnormal . JENNIFFER (test code = JENNIFFER) Biotin has been reported to cause a negative bias, interpret results relative to patient's use of biotin. Lab Interpretation Normal (test code = 53833-7) [facility] LACTIC [id number] 06:21:05 Test Item Value Reference Range Interpretation Comments PH (test code = 7.32-7.42 L 9377459382) PCO2 CELIA (test code = See_Comment H [Auto mated 6186682504) message] The sy stem which generated this result transmitted reference range : 41 - 51 mmHg. The reference range was not used to interpret this result as normal/abnormal . PO2 CELIA (test code = See_Comment L [Autom ated 9939587782) message] The sy stem which generated this result transmitted reference range : 25 - 40 mmHg. The reference range was not used to interpret this result as normal/abnormal . HCO3 CELIA (test code = See_Comment H [Auto mated 0958823991) message] The sy stem which generated this result transmitted reference range : 24 - 28 mEq/L. The reference range was not used to interpret this result as normal/abnormal . AC VBE(BEAKER) (test mEq/L code = 0079724720) THB CELIA (test code = 12.3 g/dL 12-16 4080465905) %O2HB CELIA (test code = 38.2 % 52-63 L 8888747650) %COHB CELIA (test code = 0.7 % 0-1.5 2500994919) %METHB CELIA (test code = 0.3 % 0.4-1.5 L 4111623717) VOL%O2 CELIA (test code = 6.6 % 6-12 4653405081) NA (test code = 138 mmol/L 135-145 7779487575) K+ (test code = 4.2 mmol/L 3.5-5 5604774023) AC CA IONZ (test code = 4.70 mg/dL 4.5-5.3 5525026592) GLUCOSE (test code = 178 mg/dL 70-110 H 7627633986) LACTIC ACID (test code 1.11 mmol/L 0.5-2.2 = 1810605073) Lab Interpretation Abnormal (test code = 08971-3) [facility]. METABOLIC PANEL ([id number])2022-05-02 06:14:48 Test Item Value Reference Range Interpretation Comments NA (test code = 140 mmol/L 135-145 1960127338) K (test code = 4.4 mmol/L 3.5-5 6732442969) CL (test code = 97 mmol/L 98-108 L 7269577961) CO2 TOTAL (test code = 35 mmol/L 23-31 H 7227510591) AGAP (test code = 2-16 6343081604) BUN (test code = 23 mg/dL 7-23 4025536222) GLUCOSE (test code = 185 mg/dL 70-110 H 9646888764) CREATININE (test code = 1.16 mg/dL 0.5-1.04 H 3080748516) TOTAL BILI (test code = 0.4 mg/dL 0.1-1.2 5096890834) CALCIUM (test code = 9.4 mg/dL 8.6-10.6 7498570750) T PROTEIN (test code = 7.3 g/dL 6.3-8.2 2027210780) ALBUMIN (test code = 4.4 g/dL 3.5-5 8465558210) ALK PHOS (test code = 112 U/L 34-122 9462073130) ALTv (test code = 47 U/L 5-35 H 1742-6) AST(SGOT) (test code = 47 U/L 13-40 H 5988447317) eGFR (test code = mL/min/1.73m2 3366001514) JENNIFFER (test code = JENNIFFER) Association of Glomerular Filtration Rate (GFR) and Staging of Kidney Disease* + --+ --+ ------+| GFR (mL/min/1.73 m2) ?| With Kidney Damage ?| ?Without Kidney Damage+ --------+ --------+ +| ?>90 ?| ?Stage one ?| ? Normal ?+ ---+ ---+ -------+| ?60-89 ?| ?Stage two ?| ? Decreased GFR ? + --+ --+ ------+| ?30-59 ?| ?Stage three ?| ? Stage three ? + --+ --+ ------+| ?15-29 ?| ?Stage four ? | ? Stage four ?+ ---+ ---+ -------+| ?<15 (or dialysis) ? ?| ?Stage five ? | ? Stage five ?+ ---+ ---+ -------+ *Each stage assumes the associated GFR level has been in effect for at least three months. ?Stages 1 to 5, with or without kidney disease, indicate chronic kidney disease. Notes: Determination of stages one and two (with eGFR >59mL/min/1.73 m2) requires estimation of kidney damage for at least three months as defined by structural or functional abnormalities of the kidney, manifested by either:Pathological abnormalities or Markers of kidney damage (including abnormalities in the composition of the blood or urine or abnormalities in imaging tests). Lab Interpretation Abnormal (test code = 94487-9) [facility]14:48 Test Item Value Reference Range Interpretation Comments MAGNESIUM (test code = 2742514701) 2.5 mg/dL 1.7-2.4 H Lab Interpretation (test code = Abnormal 52537-3) [facility] WITH [id number] 05:53:47 Test Item Value Reference Range Interpretation Comments WBC (test code = See_Comment [Automated 9590-2) message] The sy stem which generated this result transmitted reference range : 4.30 - 11.10 10*3/?L. The reference range was not used to interpret this result as normal/abnormal . RBC (test code = See_Comment [Automated 906-8) message] The sy stem which generated this result transmitted reference range : 3.93 - 5.25 10*6/?L. The reference range was not used to interpret this result as normal/abnormal . HGB (test code = 11.6 g/dL 11.6-15 718-7) HCT (test code = 36.7 % 35.7-45.2 4544-3) MCV (test code = 87.4 fL 80.6-95.5 787-2) MCH (test code = 27.6 pg 25.9-32.8 785-6) MCHC (test code = 31.6 g/dL 31.6-35.1 786-4) RDW-SD (test code = 47.2 fL 39-49.9 38729-4) RDW-CV (test code = 14.8 % 12-15.5 788-0) PLT (test code = See_Comment [Automated 777-3) message] The sy stem which generated this result transmitted reference range : 166 - 358 10*3/ ?L. The reference r josselyn was not used to interpret this result as normal/abnormal . MPV (test code = 9.1 fL 9.5-12.9 L 85288-5) NRBC/100 WBC (test See_Comment [Automat ed code = 2364753178) message] The system which generated this result transmitted reference range : 0.0 - 10.0 /100 WBCs. The refer ence range was not u sed to interpret th is result as normal/abnormal . NRBC x10^3 (test code See_Comment [Auto mated = 2073712124) message] The s ystem which generated this result transmitted reference range : 10*3/?L. The reference range was not used to interpret this result as normal/abnormal . GRAN MAT (NEUT) % 82.2 % (test code = 770-8) IMM GRAN % (test code 0.40 % = 2432138176) LYMPH % (test code = 10.2 % 736-9) MONO % (test code = 4.4 % 5905-5) EOS % (test code = 1.8 % 713-8) BASO % (test code = 1.0 % 706-2) GRAN MAT x10^3(ANC) 6.37 10*3/uL 1.88-7.09 (test code = 8087088146) IMM GRAN x10^3 (test 0.03 10*3/uL 0-0.06 code = 6308617585) LYMPH x10^3 (test code 0.79 10*3/uL 1.32-3.29 L = 731-0) MONO x10^3 (test code 0.34 10*3/uL 0.33-0.92 = 742-7) EOS x10^3 (test code = 0.14 10*3/uL 0.03-0.39 711-2) BASO x10^3 (test code 0.08 10*3/uL 0.01-0.07 H = 704-7) Lab Interpretation Abnormal (test code = 67254-8) [id number] 03:36:53 Test Item Value Reference Range Interpretation Comments NT-proBNP (test code 102 pg/mL See_Comment [Autom ated = 3162139494) message] The system which generated this result transmitted reference range : <=125. The reference range was not used to interpret this result as normal/abnormal . JENNIFFER (test code = JENNIFFER) Biotin has been reported to cause a negative bias, interpret results relative to patient's use of biotin. Lab Interpretation Normal (test code = 31150-2) [facility] [id number] 03:23:03 Test Item Value Reference Interpretation Comments Range TROPONIN I (test See_Comment [Automated code = 2853932167) message] The system which generated this result transmitted reference range : <=0.034. The reference range was not used to interpret this result as normal/abnormal . JENNIFFER (test code = Reference (Normal) JENNIFFER) Range (defined by the 99th percentile reference limit): <= 0.034 ng/mL Note: Cardiac troponin begins to rise 3-4 hours after the onset of ischemia. Repeat in 4-6 hours if the sample was drawn within 3-4 hours of the onset of the symptom and found normal. Diagnosis of myocardial injury is made with acute changes in cTn concentrations with at least one serial sample above the 99th percentile upper reference limit (URL), taken together with the patient's clinical presentation. Biotin has been reported to cause a negative bias, interpret results relative to patient's use of biotin. Lab Interpretation Normal (test code = 40641-5) [facility]OL[facility] ([id number])2022-04-29 03:11:22 Test Item Value Reference Range Interpretation Comments NA (test code = 139 mmol/L 135-145 3004584333) K (test code = 4.6 mmol/L 3.5-5 4014521368) CL (test code = 94 mmol/L 98-108 L 3120274802) CO2 TOTAL (test code = 36 mmol/L 23-31 H 6024594581) AGAP (test code = 2-16 7985359188) BUN (test code = 23 mg/dL 7-23 7456508024) GLUCOSE (test code = 271 mg/dL 70-110 H 4252342462) CREATININE (test code = 0.91 mg/dL 0.5-1.04 5705499765) TOTAL BILI (test code = 0.5 mg/dL 0.1-1.8 0803777901) CALCIUM (test code = 9.3 mg/dL 8.6-10.6 6003713754) T PROTEIN (test code = 7.3 g/dL 6.3-8.2 1708767704) ALBUMIN (test code = 4.5 g/dL 3.5-5 8721744598) ALK PHOS (test code = 137 U/L 34-122 H 3818550536) ALTv (test code = 39 U/L 5-35 H 1742-6) AST(SGOT) (test code = 34 U/L 13-40 2589486654) eGFR (test code = mL/min/1.73m2 2813946245) JENNIFFER (test code = JENNIFFER) Association of Glomerular Filtration Rate (GFR) and Staging of Kidney Disease* + --+ --+ ------+| GFR (mL/min/1.73 m2) ?| With Kidney Damage ?| ?Without Kidney Damage+ --------+ --------+ +| ?>90 ?| ?Stage one ?| ? Normal ?+ ---+ ---+ -------+| ?60-89 ?| ?Stage two ?| ? Decreased GFR ? + --+ --+ ------+| ?30-59 ?| ?Stage three ?| ? Stage three ? + --+ --+ ------+| ?15-29 ?| ?Stage four ? | ? Stage four ?+ ---+ ---+ -------+| ?<15 (or dialysis) ? ?| ?Stage five ? | ? Stage five ?+ ---+ ---+ -------+ *Each stage assumes the associated GFR level has been in effect for at least three months. ?Stages 1 to 5, with or without kidney disease, indicate chronic kidney disease. Notes: Determination of stages one and two (with eGFR >59mL/min/1.73 m2) requires estimation of kidney damage for at least three months as defined by structural or functional abnormalities of the kidney, manifested by either:Pathological abnormalities or Markers of kidney damage (including abnormalities in the composition of the blood or urine or abnormalities in imaging tests). Lab Interpretation Abnormal (test code = 73623-4) [facility] [id number] 03:09:40 Test Item Value Reference Range Interpretation Comments APTT Patient (test See_Comment [Automat ed code = 3173-2) message] The system which generated this result transmitted reference range : 23 - 38 Seconds . The reference range was not used to interpr et this result as normal/abnormal . JENNIFFER (test code = JENNIFFER) The [facility] patient population mean normal value for aPTT is 30 seconds. Lab Interpretation Normal (test code = 56091-6) [facility] [id number] 03:07:39 Test Item Value Reference Range Interpretation Comments PROTIME PATIENT (test See_Comment [Auto mated message] code = 5964-2) The system wh ich generated this result transmitted ref erence range: 12.0 - 1 4.7 Seconds. The re ference range was not u sed to interpret this result as normal/abnor mal. INR (test code = 6301-6) Nor mal INR <1.1; Warfarin Therap eutic range 2.0 to 3. 0 or 2.5 to 3.5, dep ending upon the indica tions. Lab Interpretation (test Normal code = 99038-5) [facility] [id number] 02:58:01 Test Item Value Reference Range Interpretation Comments WBC (test code = See_Comment H [Automated 0090-2) message] The system which generated this result transmit alden reference range : 4.30 - 11.10 10*3/?L. The reference range was not used to interpret this result as normal/abnormal . RBC (test code = See_Comment [Automated 249-8) message] The system which generated this result transmit alden reference range : 3.93 - 5.25 10*6/?L. The reference range was not used to interpret this result as normal/abnormal . HGB (test code = 12.0 g/dL 11.6-15 718-7) HCT (test code = 37.8 % 35.7-45.2 4544-3) MCV (test code = 88.1 fL 80.6-95.5 787-2) MCH (test code = 28.0 pg 25.9-32.8 785-6) MCHC (test code = 31.7 g/dL 31.6-35.1 786-4) RDW-SD (test code = 47.9 fL 39-49.9 76777-8) RDW-CV (test code = 14.8 % 12-15.5 788-0) PLT (test code = See_Comment [Automated 777-3) message] The system which generated this result transmit alden reference range : 166 - 358 10*3/ ?L. The reference range was not u sed to interpret th is result as normal/abnormal . MPV (test code = 9.0 fL 9.5-12.9 L 80605-0) NRBC/100 WBC (test See_Comment [Automat ed code = 4260502781) message] The system which generated this result transmit alden reference range : 0.0 - 10.0 /100 WBCs. The reference range was not used to interpret this result as normal/abnormal . NRBC x10^3 (test code See_Comment [Auto mated = 5030012472) message] The system which generated this result transmit alden reference range : 10*3/?L. The reference range was not used to interpret this result as normal/abnormal . GRAN MAT (NEUT) % 85.4 % (test code = 770-8) IMM GRAN % (test code 0.40 % = 7707980997) LYMPH % (test code = 7.5 % 736-9) MONO % (test code = 5.0 % 5905-5) EOS % (test code = 1.1 % 713-8) BASO % (test code = 0.6 % 706-2) GRAN MAT x10^3(ANC) 10.20 10*3/uL 1.88-7.09 H (test code = 5916747352) IMM GRAN x10^3 (test 0.05 10*3/uL 0-0.06 code = 4439331722) LYMPH x10^3 (test code 0.89 10*3/uL 1.32-3.29 L = 731-0) MONO x10^3 (test code 0.60 10*3/uL 0.33-0.92 = 742-7) EOS x10^3 (test code = 0.13 10*3/uL 0.03-0.39 711-2) BASO x10^3 (test code 0.07 10*3/uL 0.01-0.07 = 704-7) Lab Interpretation Abnormal (test code = 12483-7) [facility] GLUCOSE (AUTOMATED)2022-02-27 20:32:53 Test Item Value Reference Range Interpretation Comments POCT GLU (test code = 5734072635) 236 mg/dL 70-110 H Lab Interpretation (test code = Abnormal 93723-1) [facility] GLUCOSE (AUTOMATED)2022-02-27 16:22:28 Test Item Value Reference Range Interpretation Comments POCT GLU (test code = 5741957052) 242 mg/dL 70-110 H Lab Interpretation (test code = Abnormal 25010-5) [facility] GLUCOSE (AUTOMATED)2022-02-27 12:34:52 Test Item Value Reference Range Interpretation Comments POCT GLU (test code = 3060604774) 195 mg/dL 70-110 H Lab Interpretation (test code = Abnormal 89670-1) [facility] GLUCOSE (AUTOMATED)2022-02-26 21:43:40 Test Item Value Reference Range Interpretation Comments POCT GLU (test code = 1215384490) 315 mg/dL 70-110 H Lab Interpretation (test code = Abnormal 57310-2) [facility] GLUCOSE (AUTOMATED)2022-02-26 17:51:09 Test Item Value Reference Range Interpretation Comments POCT GLU (test code = 3829839193) 316 mg/dL 70-110 H Lab Interpretation (test code = Abnormal 89607-5) [facility] GLUCOSE (AUTOMATED)2022-02-26 14:27:56 Test Item Value Reference Range Interpretation Comments POCT GLU (test code = 6247791908) 226 mg/dL 70-110 H Lab Interpretation (test code = Abnormal 61199-9) [facility] [id number] 10:01:38 Test Item Value Reference Range Interpretation Comments Blood Culture-Aerobic No organisms No growth Previo us (test code = 62102-0) isolated prelim inary verified result was Culture In Progress on 02/21/2022 at 08 01 CDTPrevious preliminary verified result was No growth a t 24 hours on 02/22/2022 at 05 01 CDTPrevious preliminary verified result was No growth a t 48 hours on 02/23/2022 at 050 1 CDTPrevious preliminary verified result was No growth a t 72 hours on 02/24/2022 at 050 1 CDT Blood No organisms No growth Previous Culture-Anaerobic isolated preliminar y (test code = 67151-6) verifi ed result was Culture In Progress on 02/21/2022 at 08 01 CDTPrevious preliminary verified result was No growth a t 24 hours on 02/22/2022 at 05 01 CDTPrevious preliminary verified result was No growth a t 48 hours on 02/23/2022 at 050 1 CDTPrevious preliminary verified result was No growth a t 72 hours on 02/24/2022 at 050 1 CDT Lab Interpretation Normal (test code = 62303-8) [facility] GLUCOSE (AUTOMATED)2022-02-26 01:34:43 Test Item Value Reference Range Interpretation Comments POCT GLU (test code = 2145004912) 253 mg/dL 70-110 H Lab Interpretation (test code = Abnormal 43164-9) [facility] GLUCOSE (AUTOMATED)2022-02-25 20:41:07 Test Item Value Reference Range Interpretation Comments POCT GLU (test code = 0354086149) 260 mg/dL 70-110 H Lab Interpretation (test code = Abnormal 93687-9) [facility] GLUCOSE (AUTOMATED)2022-02-25 16:40:46 Test Item Value Reference Range Interpretation Comments POCT GLU (test code = 0240524896) 245 mg/dL 70-110 H Lab Interpretation (test code = Abnormal 45256-7) [facility] Arterial Blood Gas.2022-02-25 14:15:07 Test Item Value Reference Range Interpretation Comments PH (test code = 2) 7.35-7.45 H PCO2 (test code = See_Comment H [Automate d message] 1243963580) The system [employer] generated this result transmitted ref erence range: 35 - 45 mmHg. The reference r josselyn was not used to interpret this result as normal/abnor mal. PO2 (test code = See_Comment [Automated message] 4655609288) The system [employer] generated this result transmitted ref erence range: 80 - 100 mmHg. The reference r josselyn was not used to interpret this result as normal/abnor mal. HCO3 (test code = See_Comment H [Automate d message] 3825023636) The system [employer] generated this result transmitted ref erence range: 22 - 26 mEq/L. The reference r josselyn was not used to interpret this result as normal/abnor mal. BE (test code = See_Comment H [Automated message] 3004621834) The system [employer] generated this result transmitted ref erence range: -3.0 - 3 .0 mEq/L. The refe rence range was not u sed to interpret this result as normal/abnor mal. Lab Interpretation (test Abnormal code = 94408-0) [facility] GLUCOSE (AUTOMATED)2022-02-25 12:53:11 Test Item Value Reference Range Interpretation Comments POCT GLU (test code = 8731908113) 194 mg/dL 70-110 H Lab Interpretation (test code = Abnormal 62434-0) [facility] METABOLIC PANEL (NA, K, CL, CO2, GLUCOSE, BUN, CREATININE, CA)2022-02-25 12:18:22 Test Item Value Reference Range Interpretation Comments NA (test code = 135 mmol/L 135-145 9551694715) K (test code = 3.5 mmol/L 3.5-5 4945528834) CL (test code = 97 mmol/L 98-108 L 1539785912) CO2 TOTAL (test code = 37 mmol/L 23-31 H 5085832444) AGAP (test code = 2-16 L 1814327107) BUN (test code = 36 mg/dL 7-23 H 4577161623) GLUCOSE (test code = 172 mg/dL 70-110 H 8881239113) CREATININE (test code = 1.57 mg/dL 0.5-1.04 H 9940031904) CALCIUM (test code = 9.0 mg/dL 8.6-10.6 3788509261) eGFR (test code = mL/min/1.73m2 7078508935) JENNIFFER (test code = JENNIFFER) Association of Glomerular Filtration Rate (GFR) and Staging of Kidney Disease* + --+ --+ ------+| GFR (mL/min/1.73 m2) ?| With Kidney Damage ?| ?Without Kidney Damage+ --------+ --------+ +| ?>90 ?| ?Stage one ?| ? Normal ?+ ---+ ---+ -------+| ?60-89 ?| ?Stage two ?| ? Decreased GFR ? + --+ --+ ------+| ?30-59 ?| ?Stage three ?| ? Stage three ? + --+ --+ ------+| ?15-29 ?| ?Stage four ? | ? Stage four ?+ ---+ ---+ -------+| ?<15 (or dialysis) ? ?| ?Stage five ? | ? Stage five ?+ ---+ ---+ -------+ *Each stage assumes the associated GFR level has been in effect for at least three months. ?Stages 1 to 5, with or without kidney disease, indicate chronic kidney disease. Notes: Determination of stages one and two (with eGFR >59mL/min/1.73 m2) requires estimation of kidney damage for at least three months as defined by structural or functional abnormalities of the kidney, manifested by either:Pathological abnormalities or Markers of kidney damage (including abnormalities in the composition of the blood or urine or abnormalities in imaging tests). Lab Interpretation Abnormal (test code = 01679-6) [facility] 12:18:22 Test Item Value Reference Range Interpretation Comments MAGNESIUM (test code = 4294732208) 1.7 mg/dL 1.7-2.4 Lab Interpretation (test code = Normal 14635-4) [facility] 12:18:22 Test Item Value Reference Range Interpretation Comments PHOSPHORUS (test code = 1694344912) 2.7 mg/dL 2.5-5 Lab Interpretation (test code = Normal 61012-4) [facility] GLUCOSE (AUTOMATED)2022-02-25 01:26:19 Test Item Value Reference Range Interpretation Comments POCT GLU (test code = 5773013193) 180 mg/dL 70-110 H Lab Interpretation (test code = Abnormal 88257-8) [facility] GLUCOSE (AUTOMATED)2022-02-24 20:51:23 Test Item Value Reference Range Interpretation Comments POCT GLU (test code = 9263153355) 206 mg/dL 70-110 H Lab Interpretation (test code = Abnormal 16900-0) [facility]2022-02-24 17:04:22 Test Item Value Reference Range Interpretation Comments PH (test code = 2) 7.35-7.45 H PCO2 (test code = See_Comment [Automate d message] 9376270571) The system [employer] generated this result transmitted ref erence range: 35 - 45 mmHg. The reference r josselyn was not used to interpret this result as normal/abnor mal. PO2 (test code = See_Comment H [Automated message] 7765234957) The system [employer] generated this result transmitted ref erence range: 80 - 100 mmHg. The reference r josselyn was not used to interpret this result as normal/abnor mal. HCO3 (test code = See_Comment H [Automate d message] 2083352061) The system [employer] generated this result transmitted ref erence range: 22 - 26 mEq/L. The reference r josselyn was not used to interpret this result as normal/abnor mal. BE (test code = See_Comment H [Automated message] 8401221709) The system [employer] generated this result transmitted ref erence range: -3.0 - 3 .0 mEq/L. The refe rence range was not u sed to interpret this result as normal/abnor mal. Lab Interpretation (test Abnormal code = 02820-6) [facility] 17:00:46 Test Item Value Reference Range Interpretation Comments POCT GLU (test code = 0464079755) 230 mg/dL 70-110 H Lab Interpretation (test code = Abnormal 56462-3) [facility] [id number] 13:31:58 Test Item Value Reference Interpretation Comments Range TROPONIN I (test 0.002 ng/mL See_Comment [Automated code = 8868356897) message] The system which generated this result transmitted reference range : <=0.034. The reference range was not used to interpret this result as normal/abnormal . JENNIFFER (test code = Reference (Normal) JENNIFFER) Range (defined by the 99th percentile reference limit): <= 0.034 ng/mL Note: Cardiac troponin begins to rise 3-4 hours after the onset of ischemia. Repeat in 4-6 hours if the sample was drawn within 3-4 hours of the onset of the symptom and found normal. Diagnosis of myocardial injury is made with acute changes in cTn concentrations with at least one serial sample above the 99th percentile upper reference limit (URL), taken together with the patient's clinical presentation. Biotin has been reported to cause a negative bias, interpret results relative to patient's use of biotin. Lab Interpretation Normal (test code = 75908-0) [facility] 13:24:56 Test Item Value Reference Range Interpretation Comments POCT GLU (test code = 7455187194) 252 mg/dL 70-110 H Lab Interpretation (test code = Abnormal 36724-8) [facility] (NA, K, CL, CO2, GLUCOSE, BUN, CREATININE, CA)2022-02-24 13:21:38 Test Item Value Reference Range Interpretation Comments NA (test code = 138 mmol/L 135-145 5362006526) K (test code = 4.3 mmol/L 3.5-5 1521123293) CL (test code = 94 mmol/L 98-108 L 4958729384) CO2 TOTAL (test code = 39 mmol/L 23-31 H 2466247350) AGAP (test code = 2-16 7906690246) BUN (test code = 31 mg/dL 7-23 H 2733580844) GLUCOSE (test code = 237 mg/dL 70-110 H 3280178644) CREATININE (test code = 1.46 mg/dL 0.5-1.04 H 0971356848) CALCIUM (test code = 9.2 mg/dL 8.6-10.6 7798356883) eGFR (test code = mL/min/1.73m2 3798048525) JENNIFFER (test code = JENNIFFER) Association of Glomerular Filtration Rate (GFR) and Staging of Kidney Disease* + --+ --+ ------+| GFR (mL/min/1.73 m2) ?| With Kidney Damage ?| ?Without Kidney Damage+ --------+ --------+ +| ?>90 ?| ?Stage one ?| ? Normal ?+ ---+ ---+ -------+| ?60-89 ?| ?Stage two ?| ? Decreased GFR ? + --+ --+ ------+| ?30-59 ?| ?Stage three ?| ? Stage three ? + --+ --+ ------+| ?15-29 ?| ?Stage four ? | ? Stage four ?+ ---+ ---+ -------+| ?<15 (or dialysis) ? ?| ?Stage five ? | ? Stage five ?+ ---+ ---+ -------+ *Each stage assumes the associated GFR level has been in effect for at least three months. ?Stages 1 to 5, with or without kidney disease, indicate chronic kidney disease. Notes: Determination of stages one and two (with eGFR >59mL/min/1.73 m2) requires estimation of kidney damage for at least three months as defined by structural or functional abnormalities of the kidney, manifested by either:Pathological abnormalities or Markers of kidney damage (including abnormalities in the composition of the blood or urine or abnormalities in imaging tests). Lab Interpretation Abnormal (test code = 88142-0) [facility] [id number] 03:18:42 Test Item Value Reference Range Interpretation Comments LACTIC ACID (test code = 0.92 mmol/L 0.5-2.2 6702238720) Lab Interpretation (test code = Normal 04741-1) [facility] GLUCOSE (AUTOMATED)2022-02-24 01:21:36 Test Item Value Reference Range Interpretation Comments POCT GLU (test code = 2362778893) 200 mg/dL 70-110 H Lab Interpretation (test code = Abnormal 24291-3) [facility] GLUCOSE (AUTOMATED)2022-02-23 22:45:38 Test Item Value Reference Range Interpretation Comments POCT GLU (test code = 1773463888) 246 mg/dL 70-110 H Lab Interpretation (test code = Abnormal 38678-1) [facility] GLUCOSE (AUTOMATED)2022-02-23 21:47:33 Test Item Value Reference Range Interpretation Comments POCT GLU (test code = 261 mg/dL 70-110 H Notifi ed Provider [id number]) Lab Interpretation (test Abnormal code = 85677-6) [facility] Lactic [id number] 18:40:55 Test Item Value Reference Range Interpretation Comments PH (test code = 2) 7.35-7.45 PCO2 (test code = See_Comment H [Automate d 7709370596) message] The sy stem which generated this result transmitted reference range : 35 - 45 mmHg. The reference range was not used to interpret this result as normal/abnormal . PO2 (test code = See_Comment H [Automated 2728643499) message] The sy stem which generated this result transmitted reference range : 80 - 100 mmHg. The reference range was not used to interpret this result as normal/abnormal . HCO3 (test code = See_Comment H [Automate d 4036653445) message] The sy stem which generated this result transmitted reference range : 22 - 26 mEq/L. The reference range was not used to interpret this result as normal/abnormal . BE (test code = See_Comment H [Automated 4532023669) message] The sy stem which generated this result transmitted reference range : -3.0 - 3.0 mEq/ L. The reference r josselyn was not used to interpret this result as normal/abnormal . THB (test code = 10.1 g/dL 12-16 L 6836782709) %O2HB (test code = 98.2 % 94-99 6076040922) %COHB ART (test code = 0.0 % 0-1.5 7264991364) %METHB ART (test code = 0.2 % 0.4-1.5 L 2019985300) VOL%O2 ART (test code = 14.2 % 15-23 L 7190365326) NA (test code = 142 mmol/L 135-145 3111349534) K+ (test code = 3.9 mmol/L 3.5-5 8138257097) AC CA IONZ (test code = 4.60 mg/dL 4.5-5.3 2517519271) GLUCOSE (test code = 201 mg/dL 70-110 H 5127724186) LACTIC ACID (test code 0.99 mmol/L 0.5-2.2 = 5884643932) Lab Interpretation Abnormal (test code = 21708-2) [facility] 17:20:26 Test Item Value Reference Range Interpretation Comments POCT GLU (test code = 222 mg/dL 70-110 H Notifi ed Provider [id number]) Lab Interpretation (test Abnormal code = 31360-9) [facility] GLUCOSE (AUTOMATED)2022-02-23 13:23:49 Test Item Value Reference Range Interpretation Comments POCT GLU (test code = 188 mg/dL 70-110 H Notifi ed Provider 1477022822) Lab Interpretation (test Abnormal code = 16826-0) [facility] GLUCOSE (AUTOMATED)2022-02-22 21:57:50 Test Item Value Reference Range Interpretation Comments POCT GLU (test code = 3405449221) 240 mg/dL 70-110 H Lab Interpretation (test code = Abnormal 74567-4) [facility] GLUCOSE (AUTOMATED)2022-02-22 18:33:41 Test Item Value Reference Range Interpretation Comments POCT GLU (test code = 1473415764) 247 mg/dL 70-110 H Lab Interpretation (test code = Abnormal 64611-4) [id number] 15:54:13 Test Item Value Reference Range Interpretation Comments URINE CULTURE (test No aerobic growth (< code = 630-4) 1000 CFU/mL) [facility] (NA, K, CL, CO2, GLUCOSE, BUN, CREATININE, CA)2022-02-22 13:03:42 Test Item Value Reference Range Interpretation Comments NA (test code = 140 mmol/L 135-145 3701947261) K (test code = 3.7 mmol/L 3.5-5 9718986820) CL (test code = 95 mmol/L 98-108 L 9282455356) CO2 TOTAL (test code = 40 mmol/L 23-31 H 4045779039) AGAP (test code = 2-16 6290598887) BUN (test code = 19 mg/dL 7-23 7119424304) GLUCOSE (test code = 167 mg/dL 70-110 H 6890040993) CREATININE (test code = 0.85 mg/dL 0.5-1.04 8723942526) CALCIUM (test code = 9.0 mg/dL 8.6-10.6 4129068258) eGFR (test code = mL/min/1.73m2 9195394115) JENNIFFER (test code = JENNIFFER) Association of Glomerular Filtration Rate (GFR) and Staging of Kidney Disease* + --+ --+ ------+| GFR (mL/min/1.73 m2) ?| With Kidney Damage ?| ?Without Kidney Damage+ --------+ --------+ +| ?>90 ?| ?Stage one ?| ? Normal ?+ ---+ ---+ -------+| ?60-89 ?| ?Stage two ?| ? Decreased GFR ? + --+ --+ ------+| ?30-59 ?| ?Stage three ?| ? Stage three ? + --+ --+ ------+| ?15-29 ?| ?Stage four ? | ? Stage four ?+ ---+ ---+ -------+| ?<15 (or dialysis) ? ?| ?Stage five ? | ? Stage five ?+ ---+ ---+ -------+ *Each stage assumes the associated GFR level has been in effect for at least three months. ?Stages 1 to 5, with or without kidney disease, indicate chronic kidney disease. Notes: Determination of stages one and two (with eGFR >59mL/min/1.73 m2) requires estimation of kidney damage for at least three months as defined by structural or functional abnormalities of the kidney, manifested by either:Pathological abnormalities or Markers of kidney damage (including abnormalities in the composition of the blood or urine or abnormalities in imaging tests). Lab Interpretation Abnormal (test code = 86909-6) [facility] 12:14:43 Test Item Value Reference Range Interpretation Comments MAGNESIUM (test code = 5980217986) 2.3 mg/dL 1.7-2.4 Lab Interpretation (test code = Normal 30570-4) [facility] WITH [id number] 11:52:02 Test Item Value Reference Range Interpretation Comments WBC (test code = See_Comment [Automated 1590-2) message] The sy stem which generated this result transmitted reference range : 4.30 - 11.10 10*3/?L. The reference range was not used to interpret this result as normal/abnormal . RBC (test code = See_Comment L [Automated 469-8) message] The sy stem which generated this result transmitted reference range : 3.93 - 5.25 10*6/?L. The reference range was not used to interpret this result as normal/abnormal . HGB (test code = 8.1 g/dL 11.6-15 L 718-7) HCT (test code = 25.4 % 35.7-45.2 L 4544-3) MCV (test code = 88.5 fL 80.6-95.5 787-2) MCH (test code = 28.2 pg 25.9-32.8 785-6) MCHC (test code = 31.9 g/dL 31.6-35.1 786-4) RDW-SD (test code = 48.7 fL 39-49.9 22023-9) RDW-CV (test code = 15.2 % 12-15.5 788-0) PLT (test code = See_Comment [Automated 777-3) message] The sy stem which generated this result transmitted reference range : 166 - 358 10*3/ ?L. The reference r josselyn was not used to interpret this result as normal/abnormal . MPV (test code = 8.9 fL 9.5-12.9 L 76990-5) NRBC/100 WBC (test See_Comment [Automat ed code = 6941817928) message] The system which generated this result transmitted reference range : 0.0 - 10.0 /100 WBCs. The refer ence range was not u sed to interpret th is result as normal/abnormal . NRBC x10^3 (test code See_Comment [Auto mated = 8323890553) message] The s ystem which generated this result transmitted reference range : 10*3/?L. The reference range was not used to interpret this result as normal/abnormal . GRAN MAT (NEUT) % 70.5 % (test code = 770-8) IMM GRAN % (test code 0.70 % = 8148565571) LYMPH % (test code = 18.8 % 736-9) MONO % (test code = 7.9 % 5905-5) EOS % (test code = 1.2 % 713-8) BASO % (test code = 0.9 % 706-2) GRAN MAT x10^3(ANC) 4.04 10*3/uL 1.88-7.09 (test code = 8868206588) IMM GRAN x10^3 (test 0.04 10*3/uL 0-0.06 code = 2298750791) LYMPH x10^3 (test code 1.08 10*3/uL 1.32-3.29 L = 731-0) MONO x10^3 (test code 0.45 10*3/uL 0.33-0.92 = 742-7) EOS x10^3 (test code = 0.07 10*3/uL 0.03-0.39 711-2) BASO x10^3 (test code 0.05 10*3/uL 0.01-0.07 = 704-7) Lab Interpretation Abnormal (test code = 54595-9) [facility] GLUCOSE (AUTOMATED)2022-02-22 01:40:53 Test Item Value Reference Range Interpretation Comments POCT GLU (test code = 9971123473) 246 mg/dL 70-110 H Lab Interpretation (test code = Abnormal 52960-0) [facility] GLUCOSE (AUTOMATED)2022-02-21 22:04:44 Test Item Value Reference Range Interpretation Comments POCT GLU (test code = 7687280741) 293 mg/dL 70-110 H Lab Interpretation (test code = Abnormal 02091-7) [facility] WITHOUT [id number] 16:03:44 Test Item Value Reference Range Interpretation Comments WBC (test code = 6690-2) See_Comment [A utomated message] The system [employer] generated this result transmit alden reference range : 4.30 - 11.10 10*3/?L. The reference range was not used to interpret this result as normal/abnormal . RBC (test code = 789-8) See_Comment L [Au tomated message] The system [employer] generated this result transmit alden reference range : 3.93 - 5.25 10* 6/?L. The reference r josselyn was not used to interpret this result as normal/abnormal . HGB (test code = 718-7) 8.4 g/dL 11.6-15 L HCT (test code = 4544-3) 26.6 % 35.7-45.2 L MCH (test code = 785-6) 28.5 pg 25.9-32.8 MCV (test code = 787-2) 90.2 fL 80.6-95.5 MCHC (test code = 786-4) 31.6 g/dL 31.6-35.1 PLT (test code = 777-3) See_Comment [Au tomated message] The system [employer] generated this result transmit alden reference range : 166 - 358 10*3/?L. The reference range was not used to interpret this result as normal/abnormal . MPV (test code = 9.2 fL 9.5-12.9 L 42308-5) RDW-CV (test code = 15.7 % 12-15.5 H 788-0) RDW-SD (test code = 50.9 fL 39-49.9 H 82010-1) NRBC x10^3 (test code = See_Comment [Au tomated message] 0224366032) The system [employer] generated this result transmit alden reference range : 10*3/?L. The reference range was not used to interpret this result as normal/abnormal . NRBC/100 WBC (test code See_Comment [Au tomated message] = 3107352245) The system [employer] generated this result transmit alden reference range : 0.0 - 10.0 /100 WBC s. The reference r josselyn was not used to interpret this result as normal/abnormal . IPF % (test code = 9058365611) Lab Interpretation (test Abnormal code = 09508-7) [facility] 14:46:08 Test Item Value Reference Range Interpretation Comments POCT GLU (test code = 8218193874) 157 mg/dL 70-110 H Lab Interpretation (test code = Abnormal 48498-2) [facility] METABOLIC PANEL (NA, K, CL, CO2, GLUCOSE, BUN, CREATININE, CA)2022-02-21 09:05:34 Test Item Value Reference Range Interpretation Comments NA (test code = 143 mmol/L 135-145 4954327292) K (test code = 3.8 mmol/L 3.5-5 1191918866) CL (test code = 99 mmol/L 98-108 4429501263) CO2 TOTAL (test code = 37 mmol/L 23-31 H 6194097009) AGAP (test code = 2-16 8249576145) BUN (test code = 17 mg/dL 7-23 9441143229) GLUCOSE (test code = 140 mg/dL 70-110 H 1162826888) CREATININE (test code = 0.85 mg/dL 0.5-1.04 1291436574) CALCIUM (test code = 8.9 mg/dL 8.6-10.6 3715307691) eGFR (test code = mL/min/1.73m2 9295021502) JENNIFFER (test code = JENNIFFER) Association of Glomerular Filtration Rate (GFR) and Staging of Kidney Disease* + --+ --+ ------+| GFR (mL/min/1.73 m2) ?| With Kidney Damage ?| ?Without Kidney Damage+ --------+ --------+ +| ?>90 ?| ?Stage one ?| ? Normal ?+ ---+ ---+ -------+| ?60-89 ?| ?Stage two ?| ? Decreased GFR ? + --+ --+ ------+| ?30-59 ?| ?Stage three ?| ? Stage three ? + --+ --+ ------+| ?15-29 ?| ?Stage four ? | ? Stage four ?+ ---+ ---+ -------+| ?<15 (or dialysis) ? ?| ?Stage five ? | ? Stage five ?+ ---+ ---+ -------+ *Each stage assumes the associated GFR level has been in effect for at least three months. ?Stages 1 to 5, with or without kidney disease, indicate chronic kidney disease. Notes: Determination of stages one and two (with eGFR >59mL/min/1.73 m2) requires estimation of kidney damage for at least three months as defined by structural or functional abnormalities of the kidney, manifested by either:Pathological abnormalities or Markers of kidney damage (including abnormalities in the composition of the blood or urine or abnormalities in imaging tests). Lab Interpretation Abnormal (test code = 25313-2) [facility]13 Test Item Value Reference Range Interpretation Comments MAGNESIUM (test code = 6394752995) 2.3 mg/dL 1.7-2.4 Lab Interpretation (test code = Normal 11556-3) [facility] WITH [id number] 08:13:50 Test Item Value Reference Range Interpretation Comments WBC (test code = See_Comment [Automated 6690-2) message] The sy stem which generated this result transmitted reference range : 4.30 - 11.10 10*3/?L. The reference range was not used to interpret this result as normal/abnormal . RBC (test code = See_Comment L [Automated 789-8) message] The sy stem which generated this result transmitted reference range : 3.93 - 5.25 10*6/?L. The reference range was not used to interpret this result as normal/abnormal . HGB (test code = 7.6 g/dL 11.6-15 L 718-7) HCT (test code = 24.7 % 35.7-45.2 L 4544-3) MCV (test code = 91.5 fL 80.6-95.5 787-2) MCH (test code = 28.1 pg 25.9-32.8 785-6) MCHC (test code = 30.8 g/dL 31.6-35.1 L 786-4) RDW-SD (test code = 51.5 fL 39-49.9 H 08229-1) RDW-CV (test code = 15.5 % 12-15.5 788-0) PLT (test code = See_Comment L [Automated 777-3) message] The sy stem which generated this result transmitted reference range : 166 - 358 10*3/ ?L. The reference r josselyn was not used to interpret this result as normal/abnormal . MPV (test code = 9.0 fL 9.5-12.9 L 69237-6) NRBC/100 WBC (test See_Comment [Automat ed code = 6359345964) message] The system which generated this result transmitted reference range : 0.0 - 10.0 /100 WBCs. The refer ence range was not u sed to interpret th is result as normal/abnormal . NRBC x10^3 (test code See_Comment [Auto mated = 2118732423) message] The s ystem which generated this result transmitted reference range : 10*3/?L. The reference range was not used to interpret this result as normal/abnormal . GRAN MAT (NEUT) % 68.2 % (test code = 770-8) IMM GRAN % (test code 0.60 % = 1739364193) LYMPH % (test code = 20.0 % 736-9) MONO % (test code = 8.1 % 5905-5) EOS % (test code = 2.0 % 713-8) BASO % (test code = 1.1 % 706-2) GRAN MAT x10^3(ANC) 3.72 10*3/uL 1.88-7.09 (test code = 5451967839) IMM GRAN x10^3 (test 0.03 10*3/uL 0-0.06 code = 8208038316) LYMPH x10^3 (test code 1.09 10*3/uL 1.32-3.29 L = 731-0) MONO x10^3 (test code 0.44 10*3/uL 0.33-0.92 = 742-7) EOS x10^3 (test code = 0.11 10*3/uL 0.03-0.39 711-2) BASO x10^3 (test code 0.06 10*3/uL 0.01-0.07 = 704-7) Lab Interpretation Abnormal (test code = 80432-1) [facility] 02:41:53 Test Item Value Reference Range Interpretation Comments POCT GLU (test code = 8847014205) 175 mg/dL 70-110 H Lab Interpretation (test code = Abnormal 95396-4) [facility] 23:27:23 Test Item Value Reference Range Interpretation Comments PH (test code = 2) 7.35-7.45 L PCO2 (test code = See_Comment H [Automate d message] 1702311927) The system [employer] generated this result transmitted ref erence range: 35 - 45 mmHg. The reference r josselyn was not used to interpret this result as normal/abnor mal. PO2 (test code = See_Comment H [Automated message] 7062760864) The system [employer] generated this result transmitted ref erence range: 80 - 100 mmHg. The reference r josselyn was not used to interpret this result as normal/abnor mal. HCO3 (test code = See_Comment H [Automate d message] 2681100225) The system [employer] generated this result transmitted ref erence range: 22 - 26 mEq/L. The reference r josselyn was not used to interpret this result as normal/abnor mal. BE (test code = See_Comment H [Automated message] 7470169908) The system [employer] generated this result transmitted ref erence range: -3.0 - 3 .0 mEq/L. The refe rence range was not u sed to interpret this result as normal/abnor mal. Lab Interpretation (test Abnormal code = 16207-5) [facility] WITH [id number] 20:32:34 Test Item Value Reference Range Interpretation Comments WBC (test code = See_Comment [Automated 7290-2) message] The sy stem which generated this result transmitted reference range : 4.30 - 11.10 10*3/?L. The reference range was not used to interpret this result as normal/abnormal . RBC (test code = See_Comment L [Automated 789-8) message] The sy stem which generated this result transmitted reference range : 3.93 - 5.25 10*6/?L. The reference range was not used to interpret this result as normal/abnormal . HGB (test code = 9.7 g/dL 11.6-15 L 718-7) HCT (test code = 31.7 % 35.7-45.2 L 4544-3) MCV (test code = 91.6 fL 80.6-95.5 787-2) MCH (test code = 28.0 pg 25.9-32.8 785-6) MCHC (test code = 30.6 g/dL 31.6-35.1 L 786-4) RDW-SD (test code = 51.8 fL 39-49.9 H 99647-4) RDW-CV (test code = 15.7 % 12-15.5 H 788-0) PLT (test code = See_Comment [Automated 777-3) message] The sy stem which generated this result transmitted reference range : 166 - 358 10*3/ ?L. The reference r josselyn was not used to interpret this result as normal/abnormal . MPV (test code = 8.9 fL 9.5-12.9 L 71072-9) NRBC/100 WBC (test See_Comment [Automat ed code = 9858034234) message] The system which generated this result transmitted reference range : 0.0 - 10.0 /100 WBCs. The refer ence range was not u sed to interpret th is result as normal/abnormal . NRBC x10^3 (test code See_Comment [Auto mated = 5384607503) message] The s ystem which generated this result transmitted reference range : 10*3/?L. The reference range was not used to interpret this result as normal/abnormal . GRAN MAT (NEUT) % 72.1 % (test code = 770-8) IMM GRAN % (test code 1.20 % = 8834194345) LYMPH % (test code = 16.2 % 736-9) MONO % (test code = 7.1 % 5905-5) EOS % (test code = 2.3 % 713-8) BASO % (test code = 1.1 % 706-2) GRAN MAT x10^3(ANC) 7.28 10*3/uL 1.88-7.09 H (test code = 5357076463) IMM GRAN x10^3 (test 0.12 10*3/uL 0-0.06 H code = 7826746015) LYMPH x10^3 (test code 1.63 10*3/uL 1.32-3.29 = 731-0) MONO x10^3 (test code 0.72 10*3/uL 0.33-0.92 = 742-7) EOS x10^3 (test code = 0.23 10*3/uL 0.03-0.39 711-2) BASO x10^3 (test code 0.11 10*3/uL 0.01-0.07 H = 704-7) Lab Interpretation Abnormal (test code = 76684-0) [facility] GLUCOSE (AUTOMATED)2022-02-17 21:46:17 Test Item Value Reference Range Interpretation Comments POCT GLU (test code = 9113657120) 181 mg/dL 70-110 H Lab Interpretation (test code = Abnormal 74907-2) [facility] GLUCOSE (AUTOMATED)2022-02-17 17:09:48 Test Item Value Reference Range Interpretation Comments POCT GLU (test code = 7881504738) 191 mg/dL 70-110 H Lab Interpretation (test code = Abnormal 39420-6) [facility] GLUCOSE (AUTOMATED)2022-02-17 13:07:24 Test Item Value Reference Range Interpretation Comments POCT GLU (test code = 5579086723) 185 mg/dL 70-110 H Lab Interpretation (test code = Abnormal 37511-6) [facility] Culture - Peripheral # [id number] 02:02:05 Test Item Value Reference Range Interpretation Comments Blood Culture-Aerobic No organisms No growth Previo us (test code = 80185-3) isolated prelim inary verified result was Culture In Progress on 02/12/2022 at 00 01 CDTPrevious preliminary verified result was No growth a t 24 hours on 02/12/2022 at 21 01 CDTPrevious preliminary verified result was No growth a t 48 hours on 02/13/2022 at 21 01 CDTPrevious preliminary verified result was No growth a t 72 hours on 02/14/2022 at 21 01 CDT Blood No organisms No growth Previous Culture-Anaerobic isolated preliminar y (test code = 14087-7) verifi ed result was Culture In Progress on 02/12/2022 at 00 01 CDTPrevious preliminary verified result was No growth a t 24 hours on 02/12/2022 at 21 01 CDTPrevious preliminary verified result was No growth a t 48 hours on 02/13/2022 at 21 01 CDTPrevious preliminary verified result was No growth a t 72 hours on 02/14/2022 at 21 01 CDT Lab Interpretation Normal (test code = 29777-1) [facility] GLUCOSE (AUTOMATED)2022-02-17 00:50:32 Test Item Value Reference Range Interpretation Comments POCT GLU (test code = 0450838091) 152 mg/dL 70-110 H Lab Interpretation (test code = Abnormal 49155-7) [facility] GLUCOSE (AUTOMATED)2022-02-16 21:47:16 Test Item Value Reference Range Interpretation Comments POCT GLU (test code = 2005234983) 183 mg/dL 70-110 H Lab Interpretation (test code = Abnormal 35167-9) [facility] GLUCOSE (AUTOMATED)2022-02-16 17:08:26 Test Item Value Reference Range Interpretation Comments POCT GLU (test code = 5480157334) 160 mg/dL 70-110 H Lab Interpretation (test code = Abnormal 57206-4) [facility] GLUCOSE (AUTOMATED)2022-02-16 13:06:01 Test Item Value Reference Range Interpretation Comments POCT GLU (test code = 1278640081) 140 mg/dL 70-110 H Lab Interpretation (test code = Abnormal 40626-9) [facility] GLUCOSE (AUTOMATED)2022-02-16 08:33:41 Test Item Value Reference Range Interpretation Comments POCT GLU (test code = 5706419232) 193 mg/dL 70-110 H Lab Interpretation (test code = Abnormal 03124-3) [facility] GLUCOSE (AUTOMATED)2022-02-16 04:30:38 Test Item Value Reference Range Interpretation Comments POCT GLU (test code = 9815430974) 167 mg/dL 70-110 H Lab Interpretation (test code = Abnormal 12670-5) [facility] GLUCOSE (AUTOMATED)2022-02-16 00:40:50 Test Item Value Reference Range Interpretation Comments POCT GLU (test code = 7110805650) 190 mg/dL 70-110 H Lab Interpretation (test code = Abnormal 11649-6) [facility] GLUCOSE (AUTOMATED)2022-02-15 21:26:07 Test Item Value Reference Range Interpretation Comments POCT GLU (test code = 9297365342) 189 mg/dL 70-110 H Lab Interpretation (test code = Abnormal 08748-1) [facility] GLUCOSE (AUTOMATED)2022-02-15 17:00:52 Test Item Value Reference Range Interpretation Comments POCT GLU (test code = 2393558492) 213 mg/dL 70-110 H Lab Interpretation (test code = Abnormal 38171-9) [facility] GLUCOSE (AUTOMATED)2022-02-15 12:48:04 Test Item Value Reference Range Interpretation Comments POCT GLU (test code = 4739026258) 145 mg/dL 70-110 H Lab Interpretation (test code = Abnormal 47631-1) [facility]. METABOLIC PANEL ([id number])2022-02-15 08:28:08 Test Item Value Reference Range Interpretation Comments NA (test code = 140 mmol/L 135-145 9479909536) K (test code = 4.0 mmol/L 3.5-5 1476611180) CL (test code = 100 mmol/L 98-108 5170016270) CO2 TOTAL (test code = 35 mmol/L 23-31 H 2366374592) AGAP (test code = 2-16 6403792660) BUN (test code = 12 mg/dL 7-23 4757552353) GLUCOSE (test code = 161 mg/dL 70-110 H 0676610057) CREATININE (test code = 1.20 mg/dL 0.5-1.04 H 3342237899) TOTAL BILI (test code = 0.6 mg/dL 0.1-1.5 2439389029) CALCIUM (test code = 8.7 mg/dL 8.6-10.6 1821065767) T PROTEIN (test code = 6.8 g/dL 6.3-8.2 9245767086) ALBUMIN (test code = 3.7 g/dL 3.5-5 6638942697) ALK PHOS (test code = 121 U/L 34-122 7055747122) ALTv (test code = 35 U/L 5-35 1742-6) AST(SGOT) (test code = 34 U/L 13-40 4856640674) eGFR (test code = mL/min/1.73m2 4457497017) JENNIFFER (test code = JENNIFFER) Association of Glomerular Filtration Rate (GFR) and Staging of Kidney Disease* + --+ --+ ------+| GFR (mL/min/1.73 m2) ?| With Kidney Damage ?| ?Without Kidney Damage+ --------+ --------+ +| ?>90 ?| ?Stage one ?| ? Normal ?+ ---+ ---+ -------+| ?60-89 ?| ?Stage two ?| ? Decreased GFR ? + --+ --+ ------+| ?30-59 ?| ?Stage three ?| ? Stage three ? + --+ --+ ------+| ?15-29 ?| ?Stage four ? | ? Stage four ?+ ---+ ---+ -------+| ?<15 (or dialysis) ? ?| ?Stage five ? | ? Stage five ?+ ---+ ---+ -------+ *Each stage assumes the associated GFR level has been in effect for at least three months. ?Stages 1 to 5, with or without kidney disease, indicate chronic kidney disease. Notes: Determination of stages one and two (with eGFR >59mL/min/1.73 m2) requires estimation of kidney damage for at least three months as defined by structural or functional abnormalities of the kidney, manifested by either:Pathological abnormalities or Markers of kidney damage (including abnormalities in the composition of the blood or urine or abnormalities in imaging tests). Lab Interpretation Abnormal (test code = 90846-7) [facility] Test Item Value Reference Range Interpretation Comments MAGNESIUM (test code = 2785664213) 2.4 mg/dL 1.7-2.4 Lab Interpretation (test code = Normal 03920-8) [id number] 08:07:28 Test Item Value Reference Range Interpretation Comments WBC (test code = 6690-2) See_Comment [A utomated message] The system [employer] generated this result transmit alden reference range : 4.30 - 11.10 10*3/?L. The reference range was not used to interpret this result as normal/abnormal . RBC (test code = 789-8) See_Comment L [Au tomated message] The system [employer] generated this result transmit alden reference range : 3.93 - 5.25 10* 6/?L. The reference r josselyn was not used to interpret this result as normal/abnormal . HGB (test code = 718-7) 7.9 g/dL 11.6-15 L HCT (test code = 4544-3) 24.9 % 35.7-45.2 L MCH (test code = 785-6) 28.7 pg 25.9-32.8 MCV (test code = 787-2) 90.5 fL 80.6-95.5 MCHC (test code = 786-4) 31.7 g/dL 31.6-35.1 PLT (test code = 777-3) See_Comment [Au tomated message] The system [employer] generated this result transmit alden reference range : 166 - 358 10*3/?L. The reference range was not used to interpret this result as normal/abnormal . MPV (test code = 8.9 fL 9.5-12.9 L 85622-2) RDW-CV (test code = 16.2 % 12-15.5 H 788-0) RDW-SD (test code = 52.6 fL 39-49.9 H 02041-8) NRBC x10^3 (test code = See_Comment [Au tomated message] 3775915689) The system [employer] h generated this result transmit alden reference range : 10*3/?L. The reference range was not used to interpret this result as normal/abnormal . NRBC/100 WBC (test code See_Comment [Au tomated message] = 5369728334) The system [employer] ch generated this result transmit alden reference range : 0.0 - 10.0 /100 WBC s. The reference r josselyn was not used to interpret this result as normal/abnormal . IPF % (test code = 6851592172) Lab Interpretation (test Abnormal code = 06396-6) [facility] GLUCOSE (AUTOMATED)2022-02-15 08:03:53 Test Item Value Reference Range Interpretation Comments POCT GLU (test code = 9147012889) 179 mg/dL 70-110 H Lab Interpretation (test code = Abnormal 46178-1) [facility] GLUCOSE (AUTOMATED)2022-02-15 04:16:20 Test Item Value Reference Range Interpretation Comments POCT GLU (test code = 8276453203) 215 mg/dL 70-110 H Lab Interpretation (test code = Abnormal 48757-5) [facility] GLUCOSE (AUTOMATED)2022-02-15 00:50:30 Test Item Value Reference Range Interpretation Comments POCT GLU (test code = 3328797879) 229 mg/dL 70-110 H Lab Interpretation (test code = Abnormal 23942-5) [facility] GLUCOSE (AUTOMATED)2022-02-14 21:23:56 Test Item Value Reference Range Interpretation Comments POCT GLU (test code = 4720477621) 214 mg/dL 70-110 H Lab Interpretation (test code = Abnormal 93946-9) [facility] GLUCOSE (AUTOMATED)2022-02-14 19:38:54 Test Item Value Reference Range Interpretation Comments POCT GLU (test code = 0943962653) 236 mg/dL 70-110 H Lab Interpretation (test code = Abnormal 08150-5) [facility] GLUCOSE (AUTOMATED)2022-02-14 16:28:53 Test Item Value Reference Range Interpretation Comments POCT GLU (test code = 6313912334) 245 mg/dL 70-110 H Lab Interpretation (test code = Abnormal 66273-2) [facility] GLUCOSE (AUTOMATED)2022-02-14 14:17:55 Test Item Value Reference Range Interpretation Comments POCT GLU (test code = 1926647923) 259 mg/dL 70-110 H Lab Interpretation (test code = Abnormal 05730-2) [facility]. METABOLIC PANEL ([id number])2022-02-14 10:33:43 Test Item Value Reference Range Interpretation Comments NA (test code = 139 mmol/L 135-145 3264987135) K (test code = 3.9 mmol/L 3.5-5 6380890968) CL (test code = 102 mmol/L 98-108 0565024879) CO2 TOTAL (test code = 33 mmol/L 23-31 H 1459366264) AGAP (test code = 2-16 5635060155) BUN (test code = 11 mg/dL 7-23 7082947567) GLUCOSE (test code = 162 mg/dL 70-110 H 2737009941) CREATININE (test code = 1.05 mg/dL 0.5-1.04 H 2740365275) TOTAL BILI (test code = 0.5 mg/dL 0.1-1.5 0280951443) CALCIUM (test code = 8.2 mg/dL 8.6-10.6 L 5650014955) T PROTEIN (test code = 6.1 g/dL 6.3-8.2 L 4296486398) ALBUMIN (test code = 3.2 g/dL 3.5-5 L 4764629314) ALK PHOS (test code = 113 U/L 34-122 7651139706) ALTv (test code = 37 U/L 5-35 H 1742-6) AST(SGOT) (test code = 29 U/L 13-40 4620537326) eGFR (test code = mL/min/1.73m2 3605071840) JENNIFFER (test code = JENNIFFER) Association of Glomerular Filtration Rate (GFR) and Staging of Kidney Disease* + --+ --+ ------+| GFR (mL/min/1.73 m2) ?| With Kidney Damage ?| ?Without Kidney Damage+ --------+ --------+ +| ?>90 ?| ?Stage one ?| ? Normal ?+ ---+ ---+ -------+| ?60-89 ?| ?Stage two ?| ? Decreased GFR ? + --+ --+ ------+| ?30-59 ?| ?Stage three ?| ? Stage three ? + --+ --+ ------+| ?15-29 ?| ?Stage four ? | ? Stage four ?+ ---+ ---+ -------+| ?<15 (or dialysis) ? ?| ?Stage five ? | ? Stage five ?+ ---+ ---+ -------+ *Each stage assumes the associated GFR level has been in effect for at least three months. ?Stages 1 to 5, with or without kidney disease, indicate chronic kidney disease. Notes: Determination of stages one and two (with eGFR >59mL/min/1.73 m2) requires estimation of kidney damage for at least three months as defined by structural or functional abnormalities of the kidney, manifested by either:Pathological abnormalities or Markers of kidney damage (including abnormalities in the composition of the blood or urine or abnormalities in imaging tests). Lab Interpretation Abnormal (test code = 38666-9) [facility] Test Item Value Reference Range Interpretation Comments MAGNESIUM (test code = 6562271344) 2.2 mg/dL 1.7-2.4 Lab Interpretation (test code = Normal 79646-2) [facility] WITH [id number] 10:26:41 Test Item Value Reference Range Interpretation Comments WBC (test code = See_Comment [Automated 3490-2) message] The sy stem which generated this result transmitted reference range : 4.30 - 11.10 10*3/?L. The reference range was not used to interpret this result as normal/abnormal . RBC (test code = See_Comment L [Automated 989-8) message] The sy stem which generated this result transmitted reference range : 3.93 - 5.25 10*6/?L. The reference range was not used to interpret this result as normal/abnormal . HGB (test code = 7.2 g/dL 11.6-15 L 718-7) HCT (test code = 22.0 % 35.7-45.2 L 4544-3) MCV (test code = 88.7 fL 80.6-95.5 787-2) MCH (test code = 29.0 pg 25.9-32.8 785-6) MCHC (test code = 32.7 g/dL 31.6-35.1 786-4) RDW-SD (test code = 51.8 fL 39-49.9 H 75476-4) RDW-CV (test code = 16.1 % 12-15.5 H 788-0) PLT (test code = See_Comment [Automated 777-3) message] The sy stem which generated this result transmitted reference range : 166 - 358 10*3/ ?L. The reference r josselyn was not used to interpret this result as normal/abnormal . MPV (test code = 9.5 fL 9.5-12.9 35832-1) NRBC/100 WBC (test See_Comment [Automat ed code = 1373523052) message] The system which generated this result transmitted reference range : 0.0 - 10.0 /100 WBCs. The refer ence range was not u sed to interpret th is result as normal/abnormal . NRBC x10^3 (test code See_Comment [Auto mated = 0468712467) message] The s ystem which generated this result transmitted reference range : 10*3/?L. The reference range was not used to interpret this result as normal/abnormal . GRAN MAT (NEUT) % 69.7 % (test code = 770-8) IMM GRAN % (test code 0.80 % = 8651695195) LYMPH % (test code = 19.6 % 736-9) MONO % (test code = 6.9 % 5905-5) EOS % (test code = 2.2 % 713-8) BASO % (test code = 0.8 % 706-2) GRAN MAT x10^3(ANC) 3.44 10*3/uL 1.88-7.09 (test code = 9370135266) IMM GRAN x10^3 (test 0.04 10*3/uL 0-0.06 code = 5631030055) LYMPH x10^3 (test code 0.97 10*3/uL 1.32-3.29 L = 731-0) MONO x10^3 (test code 0.34 10*3/uL 0.33-0.92 = 742-7) EOS x10^3 (test code = 0.11 10*3/uL 0.03-0.39 711-2) BASO x10^3 (test code 0.04 10*3/uL 0.01-0.07 = 704-7) Lab Interpretation Abnormal (test code = 27272-5) [facility] GLUCOSE (AUTOMATED)2022-02-14 08:19:03 Test Item Value Reference Range Interpretation Comments POCT GLU (test code = 4554876149) 180 mg/dL 70-110 H Lab Interpretation (test code = Abnormal 25969-7) [facility] GLUCOSE (AUTOMATED)2022-02-14 04:28:25 Test Item Value Reference Range Interpretation Comments POCT GLU (test code = 0513909439) 199 mg/dL 70-110 H Lab Interpretation (test code = Abnormal 68941-9) [facility] GLUCOSE (AUTOMATED)2022-02-14 00:57:11 Test Item Value Reference Range Interpretation Comments POCT GLU (test code = 4678469493) 203 mg/dL 70-110 H Lab Interpretation (test code = Abnormal 21683-4) [facility] GLUCOSE (AUTOMATED)2022-02-13 22:30:21 Test Item Value Reference Range Interpretation Comments POCT GLU (test code = 6500615717) 202 mg/dL 70-110 H Lab Interpretation (test code = Abnormal 83758-2) [facility] GLUCOSE (AUTOMATED)2022-02-13 17:30:07 Test Item Value Reference Range Interpretation Comments POCT GLU (test code = 7667180375) 180 mg/dL 70-110 H Lab Interpretation (test code = Abnormal 18905-7) [facility] GLUCOSE (AUTOMATED)2022-02-13 15:53:46 Test Item Value Reference Range Interpretation Comments POCT GLU (test code = 7040890658) 170 mg/dL 70-110 H Lab Interpretation (test code = Abnormal 39177-6) [facility] Arterial Blood Gas.2022-02-13 14:26:25 Test Item Value Reference Range Interpretation Comments PH (test code = 2) 7.35-7.45 PCO2 (test code = See_Comment [Automate d message] 5014834219) The system [employer] generated this result transmitted ref erence range: 35 - 45 mmHg. The reference r josselyn was not used to interpret this result as normal/abnor mal. PO2 (test code = See_Comment L [Automated message] 0956643758) The system [employer] generated this result transmitted ref erence range: 80 - 100 mmHg. The reference r josselyn was not used to interpret this result as normal/abnor mal. HCO3 (test code = See_Comment H [Automate d message] 2441527546) The system [employer] generated this result transmitted ref erence range: 22 - 26 mEq/L. The reference r josselyn was not used to interpret this result as normal/abnor mal. BE (test code = See_Comment [Automated message] 2559422746) The system [employer] generated this result transmitted ref erence range: -3.0 - 3 .0 mEq/L. The refe rence range was not u sed to interpret this result as normal/abnor mal. Lab Interpretation (test Abnormal code = 64497-7) [facility] GLUCOSE (AUTOMATED)2022-02-13 14:09:26 Test Item Value Reference Range Interpretation Comments POCT GLU (test code = 9472872704) 145 mg/dL 70-110 H Lab Interpretation (test code = Abnormal 06507-1) [facility] GLUCOSE (AUTOMATED)2022-02-13 12:46:36 Test Item Value Reference Range Interpretation Comments POCT GLU (test code = 6963965372) 133 mg/dL 70-110 H Lab Interpretation (test code = Abnormal 83766-4) [facility] GLUCOSE (AUTOMATED)2022-02-13 11:45:25 Test Item Value Reference Range Interpretation Comments POCT GLU (test code = 0370106346) 127 mg/dL 70-110 H Lab Interpretation (test code = Abnormal 60529-6) [facility] (NA, K, CL, CO2, GLUCOSE, BUN, CREATININE, CA)2022-02-13 11:17:34 Test Item Value Reference Range Interpretation Comments NA (test code = 140 mmol/L 135-145 8824066497) K (test code = 3.8 mmol/L 3.5-5 4501241666) CL (test code = 103 mmol/L 98-108 1968289710) CO2 TOTAL (test code = 35 mmol/L 23-31 H 0361510398) AGAP (test code = 2-16 4102427087) BUN (test code = 14 mg/dL 7-23 4959696289) GLUCOSE (test code = 107 mg/dL 70-110 6701741852) CREATININE (test code = 0.94 mg/dL 0.5-1.04 0524705954) CALCIUM (test code = 8.2 mg/dL 8.6-10.6 L 0932681883) eGFR (test code = mL/min/1.73m2 6378558250) JENNIFFER (test code = JENNIFFER) Association of Glomerular Filtration Rate (GFR) and Staging of Kidney Disease* + --+ --+ ------+| GFR (mL/min/1.73 m2) ?| With Kidney Damage ?| ?Without Kidney Damage+ --------+ --------+ +| ?>90 ?| ?Stage one ?| ? Normal ?+ ---+ ---+ -------+| ?60-89 ?| ?Stage two ?| ? Decreased GFR ? + --+ --+ ------+| ?30-59 ?| ?Stage three ?| ? Stage three ? + --+ --+ ------+| ?15-29 ?| ?Stage four ? | ? Stage four ?+ ---+ ---+ -------+| ?<15 (or dialysis) ? ?| ?Stage five ? | ? Stage five ?+ ---+ ---+ -------+ *Each stage assumes the associated GFR level has been in effect for at least three months. ?Stages 1 to 5, with or without kidney disease, indicate chronic kidney disease. Notes: Determination of stages one and two (with eGFR >59mL/min/1.73 m2) requires estimation of kidney damage for at least three months as defined by structural or functional abnormalities of the kidney, manifested by either:Pathological abnormalities or Markers of kidney damage (including abnormalities in the composition of the blood or urine or abnormalities in imaging tests). Lab Interpretation Abnormal (test code = 78644-0) [facility] Test Item Value Reference Range Interpretation Comments MAGNESIUM (test code = 6631904274) 2.1 mg/dL 1.7-2.4 Lab Interpretation (test code = Normal 81041-0) [facility] WITH [id number] 10:41:15 Test Item Value Reference Range Interpretation Comments WBC (test code = See_Comment [Automated 6690-2) message] The sy stem which generated this result transmitted reference range : 4.30 - 11.10 10*3/?L. The reference range was not used to interpret this result as normal/abnormal . RBC (test code = See_Comment L [Automated 789-8) message] The sy stem which generated this result transmitted reference range : 3.93 - 5.25 10*6/?L. The reference range was not used to interpret this result as normal/abnormal . HGB (test code = 7.2 g/dL 11.6-15 L 718-7) HCT (test code = 23.0 % 35.7-45.2 L 4544-3) MCV (test code = 89.5 fL 80.6-95.5 787-2) MCH (test code = 28.0 pg 25.9-32.8 785-6) MCHC (test code = 31.3 g/dL 31.6-35.1 L 786-4) RDW-SD (test code = 50.6 fL 39-49.9 H 05951-5) RDW-CV (test code = 15.6 % 12-15.5 H 788-0) PLT (test code = See_Comment [Automated 777-3) message] The sy stem which generated this result transmitted reference range : 166 - 358 10*3/ ?L. The reference r josselyn was not used to interpret this result as normal/abnormal . MPV (test code = 9.5 fL 9.5-12.9 83501-4) NRBC/100 WBC (test See_Comment [Automat ed code = 9827007161) message] The system which generated this result transmitted reference range : 0.0 - 10.0 /100 WBCs. The refer ence range was not u sed to interpret th is result as normal/abnormal . NRBC x10^3 (test code See_Comment [Auto mated = 3061635695) message] The s ystem which generated this result transmitted reference range : 10*3/?L. The reference range was not used to interpret this result as normal/abnormal . GRAN MAT (NEUT) % 74.0 % (test code = 770-8) IMM GRAN % (test code 0.50 % = 9937561263) LYMPH % (test code = 15.7 % 736-9) MONO % (test code = 7.4 % 5905-5) EOS % (test code = 1.7 % 713-8) BASO % (test code = 0.7 % 706-2) GRAN MAT x10^3(ANC) 4.37 10*3/uL 1.88-7.09 (test code = 1061713780) IMM GRAN x10^3 (test 0.03 10*3/uL 0-0.06 code = 3396406189) LYMPH x10^3 (test code 0.93 10*3/uL 1.32-3.29 L = 731-0) MONO x10^3 (test code 0.44 10*3/uL 0.33-0.92 = 742-7) EOS x10^3 (test code = 0.10 10*3/uL 0.03-0.39 711-2) BASO x10^3 (test code 0.04 10*3/uL 0.01-0.07 = 704-7) Lab Interpretation Abnormal (test code = 88744-5) [facility] GLUCOSE (AUTOMATED)2022-02-13 09:46:08 Test Item Value Reference Range Interpretation Comments POCT GLU (test code = 3552596315) 118 mg/dL 70-110 H Lab Interpretation (test code = Abnormal 23858-7) [facility] GLUCOSE (AUTOMATED)2022-02-13 08:49:55 Test Item Value Reference Range Interpretation Comments POCT GLU (test code = 1237335814) 122 mg/dL 70-110 H Lab Interpretation (test code = Abnormal 87414-4) [facility] GLUCOSE (AUTOMATED)2022-02-13 08:00:27 Test Item Value Reference Range Interpretation Comments POCT GLU (test code = 2958189682) 140 mg/dL 70-110 H Lab Interpretation (test code = Abnormal 69804-1) [facility] GLUCOSE (AUTOMATED)2022-02-13 07:07:01 Test Item Value Reference Range Interpretation Comments POCT GLU (test code = 2211762669) 155 mg/dL 70-110 H Lab Interpretation (test code = Abnormal 36095-8) [facility] GLUCOSE (AUTOMATED)2022-02-13 05:57:42 Test Item Value Reference Range Interpretation Comments POCT GLU (test code = 3602362582) 186 mg/dL 70-110 H Lab Interpretation (test code = Abnormal 99042-3) [facility] GLUCOSE (AUTOMATED)2022-02-13 03:40:10 Test Item Value Reference Range Interpretation Comments POCT GLU (test code = 0549300602) 245 mg/dL 70-110 H Lab Interpretation (test code = Abnormal 56667-7) [facility] GLUCOSE (AUTOMATED)2022-02-13 03:35:28 Test Item Value Reference Range Interpretation Comments POCT GLU (test code = 8768893204) 239 mg/dL 70-110 H Lab Interpretation (test code = Abnormal 58859-3) [facility] GLUCOSE (AUTOMATED)2022-02-13 01:48:01 Test Item Value Reference Range Interpretation Comments POCT GLU (test code = 6954049345) 184 mg/dL 70-110 H Lab Interpretation (test code = Abnormal 32958-3) [facility] GLUCOSE (AUTOMATED)2022-02-13 00:35:17 Test Item Value Reference Range Interpretation Comments POCT GLU (test code = 7092912209) 166 mg/dL 70-110 H Lab Interpretation (test code = Abnormal 20651-5) [facility] GLUCOSE (AUTOMATED)2022-02-12 23:26:35 Test Item Value Reference Range Interpretation Comments POCT GLU (test code = 1454053232) 149 mg/dL 70-110 H Lab Interpretation (test code = Abnormal 04129-2) [facility] GLUCOSE (AUTOMATED)2022-02-12 22:21:08 Test Item Value Reference Range Interpretation Comments POCT GLU (test code = 6958614280) 133 mg/dL 70-110 H Lab Interpretation (test code = Abnormal 22468-6) [facility] GLUCOSE (AUTOMATED)2022-02-12 21:06:47 Test Item Value Reference Range Interpretation Comments POCT GLU (test code = 7463593284) 130 mg/dL 70-110 H Lab Interpretation (test code = Abnormal 21527-2) [facility] GLUCOSE (AUTOMATED)2022-02-12 20:04:32 Test Item Value Reference Range Interpretation Comments POCT GLU (test code = 1334143248) 122 mg/dL 70-110 H Lab Interpretation (test code = Abnormal 33898-9) [facility] GLUCOSE (AUTOMATED)2022-02-12 19:08:55 Test Item Value Reference Range Interpretation Comments POCT GLU (test code = 5671379768) 133 mg/dL 70-110 H Lab Interpretation (test code = Abnormal 21100-3) [facility] GLUCOSE (AUTOMATED)2022-02-12 18:20:07 Test Item Value Reference Range Interpretation Comments POCT GLU (test code = 1308279544) 136 mg/dL 70-110 H Lab Interpretation (test code = Abnormal 36295-4) [facility] GLUCOSE (AUTOMATED)2022-02-12 17:19:20 Test Item Value Reference Range Interpretation Comments POCT GLU (test code = 8661433891) 155 mg/dL 70-110 H Lab Interpretation (test code = Abnormal 98370-6) [facility] GLUCOSE (AUTOMATED)2022-02-12 16:21:39 Test Item Value Reference Range Interpretation Comments POCT GLU (test code = 9831387713) 143 mg/dL 70-110 H Lab Interpretation (test code = Abnormal 73180-4) [facility] 16:14:56 Test Item Value Reference Range Interpretation Comments BOH (test code = 0.2 mmol/L 3917168822) JENNIFFER (test code = Normal Ranges: ? ? JENNIFFER) Nonfasting ? Less than 0.1 mmol/L ? ? Overnight Fast ? ? ? Less than 0.4 mmol/L ? ? Fasting (1-2 weeks) ?6-8 mmol/L Test developed and characteristics determined by [facility] Laboratory Services. [facility] GLUCOSE (AUTOMATED)2022-02-12 15:53:18 Test Item Value Reference Range Interpretation Comments POCT GLU (test code = 0296554426) 70-110 HH Lab Interpretation (test code = Abnormal 66016-1) [facility] GLUCOSE (AUTOMATED)2022-02-12 14:17:34 Test Item Value Reference Range Interpretation Comments POCT GLU (test code = 6801393739) 232 mg/dL 70-110 H Lab Interpretation (test code = Abnormal 73061-7) [facility] GLUCOSE (AUTOMATED)2022-02-12 13:17:46 Test Item Value Reference Range Interpretation Comments POCT GLU (test code = 1425342254) 295 mg/dL 70-110 H Lab Interpretation (test code = Abnormal 85330-5) [facility] (NA, K, CL, CO2, GLUCOSE, BUN, CREATININE, CA)2022-02-12 12:56:38 Test Item Value Reference Range Interpretation Comments NA (test code = 138 mmol/L 135-145 7664854318) K (test code = 4.0 mmol/L 3.5-5 9126428892) CL (test code = 98 mmol/L 98-108 7364182086) CO2 TOTAL (test code = 31 mmol/L 23-31 0929920110) AGAP (test code = 2-16 1133967878) BUN (test code = 20 mg/dL 7-23 7797375855) GLUCOSE (test code = 279 mg/dL 70-110 H 3466976764) CREATININE (test code = 1.08 mg/dL 0.5-1.04 H 1740474974) CALCIUM (test code = 8.8 mg/dL 8.6-10.6 7880946355) eGFR (test code = mL/min/1.73m2 7343672104) JENNIFFER (test code = JENNIFFER) Association of Glomerular Filtration Rate (GFR) and Staging of Kidney Disease* + --+ --+ ------+| GFR (mL/min/1.73 m2) ?| With Kidney Damage ?| ?Without Kidney Damage+ --------+ --------+ +| ?>90 ?| ?Stage one ?| ? Normal ?+ ---+ ---+ -------+| ?60-89 ?| ?Stage two ?| ? Decreased GFR ? + --+ --+ ------+| ?30-59 ?| ?Stage three ?| ? Stage three ? + --+ --+ ------+| ?15-29 ?| ?Stage four ? | ? Stage four ?+ ---+ ---+ -------+| ?<15 (or dialysis) ? ?| ?Stage five ? | ? Stage five ?+ ---+ ---+ -------+ *Each stage assumes the associated GFR level has been in effect for at least three months. ?Stages 1 to 5, with or without kidney disease, indicate chronic kidney disease. Notes: Determination of stages one and two (with eGFR >59mL/min/1.73 m2) requires estimation of kidney damage for at least three months as defined by structural or functional abnormalities of the kidney, manifested by either:Pathological abnormalities or Markers of kidney damage (including abnormalities in the composition of the blood or urine or abnormalities in imaging tests). Lab Interpretation Abnormal (test code = 31237-9) [facility] GLUCOSE (AUTOMATED)2022-02-12 12:44:19 Test Item Value Reference Range Interpretation Comments POCT GLU (test code = 1597065685) 299 mg/dL 70-110 H Lab Interpretation (test code = Abnormal 10119-9) [facility] GLUCOSE (AUTOMATED)2022-02-12 12:19:29 Test Item Value Reference Range Interpretation Comments POCT GLU (test code = 3237326327) 283 mg/dL 70-110 H Lab Interpretation (test code = Abnormal 48315-2) [facility] GLUCOSE (AUTOMATED)2022-02-12 11:22:10 Test Item Value Reference Range Interpretation Comments POCT GLU (test code = 9075672691) 378 mg/dL 70-110 H Lab Interpretation (test code = Abnormal 62927-6) [facility] GLUCOSE (AUTOMATED)2022-02-12 10:18:29 Test Item Value Reference Range Interpretation Comments POCT GLU (test code = 0003505179) 376 mg/dL 70-110 H Lab Interpretation (test code = Abnormal 34154-8) [id number]10 Test Item Value Reference Range Interpretation Comments OSMOLALITY (test code = See_Comment [Au tomated message] 2692-2) The system [employer] generated this result transmitted ref erence range: 278 - 30 5 mOsm/kg. The reference range was not used to int erpret this result as normal/abnormal . Lab Interpretation (test Abnormal code = 38513-4) [facility] METABOLIC PANEL (NA, K, CL, CO2, GLUCOSE, BUN, CREATININE, CA)2022-02-12 09:22:44 Test Item Value Reference Range Interpretation Comments NA (test code = 135 mmol/L 135-145 0933541315) K (test code = 4.7 mmol/L 3.5-5 5040546115) CL (test code = 93 mmol/L 98-108 L 6541499331) CO2 TOTAL (test code = 33 mmol/L 23-31 H 7651401740) AGAP (test code = 2-16 2042290070) BUN (test code = 22 mg/dL 7-23 5918952371) GLUCOSE (test code = 474 mg/dL 70-110 HH 1998639448) CREATININE (test code = 1.17 mg/dL 0.5-1.04 H 4522454774) CALCIUM (test code = 8.9 mg/dL 8.6-10.6 8776504705) eGFR (test code = mL/min/1.73m2 0903675163) JENNIFFER (test code = JENNIFFER) Association of Glomerular Filtration Rate (GFR) and Staging of Kidney Disease* + --+ --+ ------+| GFR (mL/min/1.73 m2) ?| With Kidney Damage ?| ?Without Kidney Damage+ --------+ --------+ +| ?>90 ?| ?Stage one ?| ? Normal ?+ ---+ ---+ -------+| ?60-89 ?| ?Stage two ?| ? Decreased GFR ? + --+ --+ ------+| ?30-59 ?| ?Stage three ?| ? Stage three ? + --+ --+ ------+| ?15-29 ?| ?Stage four ? | ? Stage four ?+ ---+ ---+ -------+| ?<15 (or dialysis) ? ?| ?Stage five ? | ? Stage five ?+ ---+ ---+ -------+ *Each stage assumes the associated GFR level has been in effect for at least three months. ?Stages 1 to 5, with or without kidney disease, indicate chronic kidney disease. Notes: Determination of stages one and two (with eGFR >59mL/min/1.73 m2) requires estimation of kidney damage for at least three months as defined by structural or functional abnormalities of the kidney, manifested by either:Pathological abnormalities or Markers of kidney damage (including abnormalities in the composition of the blood or urine or abnormalities in imaging tests). Lab Interpretation Abnormal (test code = 97509-8) [facility] 09:19:06 Test Item Value Reference Range Interpretation Comments POCT GLU (test code = 2918393660) 478 mg/dL 70-110 HH Lab Interpretation (test code = Abnormal 31022-7) [facility]16:19 Test Item Value Reference Range Interpretation Comments PHOSPHORUS (test code = 4741874224) 5.9 mg/dL 2.5-5 H Lab Interpretation (test code = Abnormal 16121-7) [facility] 09:16:19 Test Item Value Reference Range Interpretation Comments MAGNESIUM (test code = 9349658690) 2.1 mg/dL 1.7-2.4 Lab Interpretation (test code = Normal 25352-3) [facility]22-[facility]-12 09:10:46 Test Item Value Reference Range Interpretation Comments HGB A1C (test code = 9.7 % 4-5.7 H 4548-4) JENNIFFER (test code = JENNIFFER) Reference RangesNormal: <5.7%Prediabetes: 5.7 - 6.4%Diabetes: > 6.5% Lab Interpretation (test Abnormal code = 42369-7) [facility] WITH [id number] 08:28:29 Test Item Value Reference Range Interpretation Comments WBC (test code = See_Comment H [Automated 6690-2) message] The system which generated this result transmit alden reference range : 4.30 - 11.10 10*3/?L. The reference range was not used to interpret this result as normal/abnormal . RBC (test code = See_Comment L [Automated 789-8) message] The system which generated this result transmit alden reference range : 3.93 - 5.25 10*6/?L. The reference range was not used to interpret this result as normal/abnormal . HGB (test code = 9.0 g/dL 11.6-15 L 718-7) HCT (test code = 27.5 % 35.7-45.2 L 4544-3) MCV (test code = 87.9 fL 80.6-95.5 787-2) MCH (test code = 28.8 pg 25.9-32.8 785-6) MCHC (test code = 32.7 g/dL 31.6-35.1 786-4) RDW-SD (test code = 49.8 fL 39-49.9 28440-7) RDW-CV (test code = 15.7 % 12-15.5 H 788-0) PLT (test code = See_Comment [Automated 777-3) message] The system which generated this result transmit alden reference range : 166 - 358 10*3/ ?L. The reference range was not u sed to interpret th is result as normal/abnormal . MPV (test code = 9.7 fL 9.5-12.9 65992-7) NRBC/100 WBC (test See_Comment [Automat ed code = 6258474979) message] The system which generated this result transmit alden reference range : 0.0 - 10.0 /100 WBCs. The reference range was not used to interpret this result as normal/abnormal . NRBC x10^3 (test code See_Comment [Auto mated = 0572090114) message] The system which generated this result transmit alden reference range : 10*3/?L. The reference range was not used to interpret this result as normal/abnormal . GRAN MAT (NEUT) % 89.9 % (test code = 770-8) IMM GRAN % (test code 0.90 % = 2665461571) LYMPH % (test code = 3.4 % 736-9) MONO % (test code = 5.3 % 5905-5) EOS % (test code = 0.1 % 713-8) BASO % (test code = 0.4 % 706-2) GRAN MAT x10^3(ANC) 11.94 10*3/uL 1.88-7.09 H (test code = 5744811883) IMM GRAN x10^3 (test 0.12 10*3/uL 0-0.06 H code = 9618658762) LYMPH x10^3 (test code 0.45 10*3/uL 1.32-3.29 L = 731-0) MONO x10^3 (test code 0.70 10*3/uL 0.33-0.92 = 742-7) EOS x10^3 (test code = 0.03-0.39 L 711-2) BASO x10^3 (test code 0.05 10*3/uL 0.01-0.07 = 704-7) Lab Interpretation Abnormal (test code = 58004-0) [facility] GLUCOSE (AUTOMATED)2022-02-12 04:57:17 Test Item Value Reference Range Interpretation Comments POCT GLU (test code = 4712915926) 592 mg/dL 70-110 HH Lab Interpretation (test code = Abnormal 04961-3) [facility] GLUCOSE (AUTOMATED)2022-02-12 04:57:17 Test Item Value Reference Range Interpretation Comments POCT GLU (test code = 3683780138) 559 mg/dL 70-110 HH Lab Interpretation (test code = Abnormal 97039-8) [facility] ST[facility]UL[facility] [id number] 02:15:56 Test Item Value Reference Range Interpretation Comments TSH (test code = See_Comment [Automated message] 7620419339) The system [employer] generated this result transmitted ref erence range: 0.45 - 4 .70 mIU/L. The refe rence range was not u sed to interpret this result as normal/abnor mal. Lab Interpretation (test Normal code = 11863-0) [facility] HospitalFR [id number] 02:02:37 Test Item Value Reference Range Interpretation Comments FREE T4 (test code = See_Comment [Autom ated message] 6223451078) The system [employer] generated this result transmitted ref erence range: 0.78 - 2 .20 ng/dL:. The ref erence range was not u sed to interpret this result as normal/abnor mal. Lab Interpretation (test Normal code = 41674-4) [facility]TROPONIN [id number] 01:57:33 Test Item Value Reference Interpretation Comments Range TROPONIN I (test 0.001 ng/mL See_Comment [Automated code = 9301533698) message] The system which generated this result transmitted reference range : <=0.034. The reference range was not used to interpret this result as normal/abnormal . JENNIFFER (test code = Reference (Normal) JENNIFFER) Range (defined by the 99th percentile reference limit): <= 0.034 ng/mL Note: Cardiac troponin begins to rise 3-4 hours after the onset of ischemia. Repeat in 4-6 hours if the sample was drawn within 3-4 hours of the onset of the symptom and found normal. Diagnosis of myocardial injury is made with acute changes in cTn concentrations with at least one serial sample above the 99th percentile upper reference limit (URL), taken together with the patient's clinical presentation. Biotin has been reported to cause a negative bias, interpret results relative to patient's use of biotin. Lab Interpretation Normal (test code = 34506-6) [facility] (06020)2022-02-12 01:55:07 Test Item Value Reference Range Interpretation Comments NA (test code = 134 mmol/L 135-145 L 9585125697) K (test code = 4.4 mmol/L 3.5-5 0068027599) CL (test code = 95 mmol/L 98-108 L 6599704864) CO2 TOTAL (test code = 22 mmol/L 23-31 L 0531836708) AGAP (test code = 2-16 H 5961644845) BUN (test code = 22 mg/dL 7-23 4284112578) GLUCOSE (test code = 646 mg/dL 70-110 HH 7137096639) CREATININE (test code = 1.19 mg/dL 0.5-1.04 H 2422219570) TOTAL BILI (test code = 1.1 mg/dL 0.1-1.5 5776542369) CALCIUM (test code = 9.1 mg/dL 8.6-10.6 5388260131) T PROTEIN (test code = 7.0 g/dL 6.3-8.2 0125483134) ALBUMIN (test code = 4.1 g/dL 3.5-5 2956740810) ALK PHOS (test code = 245 U/L 34-122 H 2460824745) ALTv (test code = 78 U/L 5-35 H 1742-6) AST(SGOT) (test code = 76 U/L 13-40 H 1239786260) eGFR (test code = mL/min/1.73m2 1477505239) JENNIFFER (test code = JENNIFFER) Association of Glomerular Filtration Rate (GFR) and Staging of Kidney Disease* + --+ --+ ------+| GFR (mL/min/1.73 m2) ?| With Kidney Damage ?| ?Without Kidney Damage+ --------+ --------+ +| ?>90 ?| ?Stage one ?| ? Normal ?+ ---+ ---+ -------+| ?60-89 ?| ?Stage two ?| ? Decreased GFR ? + --+ --+ ------+| ?30-59 ?| ?Stage three ?| ? Stage three ? + --+ --+ ------+| ?15-29 ?| ?Stage four ? | ? Stage four ?+ ---+ ---+ -------+| ?<15 (or dialysis) ? ?| ?Stage five ? | ? Stage five ?+ ---+ ---+ -------+ *Each stage assumes the associated GFR level has been in effect for at least three months. ?Stages 1 to 5, with or without kidney disease, indicate chronic kidney disease. Notes: Determination of stages one and two (with eGFR >59mL/min/1.73 m2) requires estimation of kidney damage for at least three months as defined by structural or functional abnormalities of the kidney, manifested by either:Pathological abnormalities or Markers of kidney damage (including abnormalities in the composition of the blood or urine or abnormalities in imaging tests). Lab Interpretation Abnormal (test code = 04550-8) [facility]MINAL [id number] 01:54:57 Test Item Value Reference Range Interpretation Comments NT-proBNP (test code 491 pg/mL See_Comment H [Autom ated = 6351179241) message] The system which generated this result transmitted reference range : <=125. The reference range was not used to interpret this result as normal/abnormal . JENNIFFER (test code = JENNIFFER) Biotin has been reported to cause a negative bias, interpret results relative to patient's use of biotin. 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 The reference range was not used to interpr et this result as normal/abnormal . JENNIFFER (test code = JENNIFFER) The [facility] patient population mean normal value for aPTT is 30 seconds. Lab Interpretation Normal (test code = 24770-1) [facility]CBC WITH [id number] 01:37:15 Test Item Value Reference Range Interpretation Comments WBC (test code = See_Comment H [Automated 4590-2) message] The sy stem which generated this result transmitted reference range : 4.30 - 11.10 10*3/?L. The reference range was not used to interpret this result as normal/abnormal . RBC (test code = See_Comment L [Automated 889-8) message] The sy stem which generated this result transmitted reference range : 3.93 - 5.25 10*6/?L. The reference range was not used to interpret this result as normal/abnormal . HGB (test code = 10.1 g/dL 11.6-15 L 718-7) HCT (test code = 32.4 % 35.7-45.2 L 4544-3) MCV (test code = 89.0 fL 80.6-95.5 787-2) MCH (test code = 27.7 pg 25.9-32.8 785-6) MCHC (test code = 31.2 g/dL 31.6-35.1 L 786-4) RDW-SD (test code = 50.9 fL 39-49.9 H 70997-2) RDW-CV (test code = 15.8 % 12-15.5 H 788-0) PLT (test code = See_Comment [Automated 777-3) message] The sy stem which generated this result transmitted reference range : 166 - 358 10*3/ ?L. The reference r josselyn was not used to interpret this result as normal/abnormal . MPV (test code = 9.9 fL 9.5-12.9 09402-8) NRBC/100 WBC (test See_Comment [Automat ed code = 9472474677) message] The system which generated this result transmitted reference range : 0.0 - 10.0 /100 WBCs. The refer ence range was not u sed to interpret th is result as normal/abnormal . NRBC x10^3 (test code See_Comment [Auto mated = 6686987553) message] The s ystem which generated this result transmitted reference range : 10*3/?L. The reference range was not used to interpret this result as normal/abnormal . GRAN MAT (NEUT) % 78.5 % (test code = 770-8) IMM GRAN % (test code 1.20 % = 0755443571) LYMPH % (test code = 12.2 % 736-9) MONO % (test code = 6.4 % 5905-5) EOS % (test code = 1.0 % 713-8) BASO % (test code = 0.7 % 706-2) GRAN MAT x10^3(ANC) 8.80 10*3/uL 1.88-7.09 H (test code = 9401619731) IMM GRAN x10^3 (test 0.14 10*3/uL 0-0.06 H code = 4177668818) LYMPH x10^3 (test code 1.37 10*3/uL 1.32-3.29 = 731-0) MONO x10^3 (test code 0.72 10*3/uL 0.33-0.92 = 742-7) EOS x10^3 (test code = 0.11 10*3/uL 0.03-0.39 711-2) BASO x10^3 (test code 0.08 10*3/uL 0.01-0.07 H = 704-7) Lab Interpretation Abnormal (test code = 16662-7) [facility] HospitalPROTHROMBIN [facility] / [id number] 01:36:50 Test Item Value Reference Range Interpretation Comments PROTIME PATIENT (test See_Comment [Auto mated message] code = 5964-2) The system [employer] generated this result transmitted ref erence range: 12.0 - 1 4.7 Seconds. The re ference range was not u sed to interpret this result as normal/abnor mal. INR (test code = 6301-6) Nor mal INR <1.1; Warfarin Therap eutic range 2.0 to 3. 0 or 2.5 to 3.5, dep ending upon the indica tions. Lab Interpretation (test Normal code = 40977-2) [facility]-31 18:41:03 Test Item Value Reference Range Interpretation Comments POCT GLU (test code = 5453444873) 241 mg/dL 70-110 H Lab Interpretation (test code = Abnormal 34771-6) [facility] HospitalSPUTUM [id number] 14:36:01 Test Item Value Reference Range Interpretation Comments SPUTUM CULTURE 1+ Respiratory iveth: (test code = 622-1) Commensal upper respiratory microorganisms only. Gram stain (test Few Epithelial cells code = 664-3) JENNIFFER (test code = Bacterial pathogens JENNIFFER) associated with lower respiratory infections were not identified, which include Pseudomonas aeruginosa and Staphylococcus aureus (MRSA or MSSA). [facility] HospitalN-TERMINAL [id number] 14:27:39 Test Item Value Reference Range Interpretation Comments NT-proBNP (test code 2930 pg/mL See_Comment H [Autom ated = 8196621965) message] The system which generated this result transmitted reference range : <=125. The reference range was not used to interpret this result as normal/abnormal . JENNIFFER (test code = JENNIFFER) Biotin has been reported to cause a negative bias, interpret results relative to patient's use of biotin. Lab Interpretation Abnormal (test code = 83506-8) [facility] GLUCOSE (AUTOMATED)2022-01-31 13:06:37 Test Item Value Reference Range Interpretation Comments POCT GLU (test code = 8155864569) 144 mg/dL 70-110 H Lab Interpretation (test code = Abnormal 22415-9) [facility] METABOLIC PANEL (NA, K, CL, CO2, GLUCOSE, BUN, CREATININE, CA)2022-01-31 11:52:51 Test Item Value Reference Range Interpretation Comments NA (test code = 139 mmol/L 135-145 8148150369) K (test code = 4.2 mmol/L 3.5-5.0 5523541692) CL (test code = 92 mmol/L 98-108 L 6653096060) CO2 TOTAL (test code = 39 mmol/L 23-31 H 7213956588) AGAP (test code = 2-16 9445133374) BUN (test code = 32 mg/dL 7-23 H 7500123335) GLUCOSE (test code = 183 mg/dL 70-110 H 6473807816) CREATININE (test code = 0.89 mg/dL 0.50-1.04 9301156496) CALCIUM (test code = 8.7 mg/dL 8.6-10.6 9725109353) eGFR (test code = mL/min/1.73m2 4275587969) JENNIFFER (test code = JENNIFFER) Association of Glomerular Filtration Rate (GFR) and Staging of Kidney Disease* + --+ --+ ------+| GFR (mL/min/1.73 m2) ?| With Kidney Damage ?| ?Without Kidney Damage+ --------+ --------+ +| ?>90 ?| ?Stage one ?| ? Normal ?+ ---+ ---+ -------+| ?60-89 ?| ?Stage two ?| ? Decreased GFR ? + --+ --+ ------+| ?30-59 ?| ?Stage three ?| ? Stage three ? + --+ --+ ------+| ?15-29 ?| ?Stage four ? | ? Stage four ?+ ---+ ---+ -------+| ?<15 (or dialysis) ? ?| ?Stage five ? | ? Stage five ?+ ---+ ---+ -------+ *Each stage assumes the associated GFR level has been in effect for at least three months. ?Stages 1 to 5, with or without kidney disease, indicate chronic kidney disease. Notes: Determination of stages one and two (with eGFR >59mL/min/1.73 m2) requires estimation of kidney damage for at least three months as defined by structural or functional abnormalities of the kidney, manifested by either:Pathological abnormalities or Markers of kidney damage (including abnormalities in the composition of the blood or urine or abnormalities in imaging tests). Lab Interpretation Abnormal (test code = 82675-7) [facility] 11:45:09 Test Item Value Reference Range Interpretation Comments MAGNESIUM (test code = 6158262584) 2.4 mg/dL 1.7-2.4 Lab Interpretation (test code = Normal 10050-0) [facility]2022-[facility] 11:44:49 Test Item Value Reference Range Interpretation Comments PHOSPHORUS (test code = 2865441593) 3.3 mg/dL 2.5-5.0 Lab Interpretation (test code = Normal 89707-8) [facility] GLUCOSE (AUTOMATED)2022-01-30 21:23:07 Test Item Value Reference Range Interpretation Comments POCT GLU (test code = 3473349147) 357 mg/dL 70-110 H Lab Interpretation (test code = Abnormal 10222-1) [facility] GLUCOSE (AUTOMATED)2022-01-30 17:39:07 Test Item Value Reference Range Interpretation Comments POCT GLU (test code = 1756563950) 183 mg/dL 70-110 H Lab Interpretation (test code = Abnormal 75660-9) [facility] GLUCOSE (AUTOMATED)2022-01-30 17:39:07 Test Item Value Reference Range Interpretation Comments POCT GLU (test code = 2159380437) 275 mg/dL 70-110 H Lab Interpretation (test code = Abnormal 75722-4) [facility] GLUCOSE (AUTOMATED)2022-01-30 13:42:50 Test Item Value Reference Range Interpretation Comments POCT GLU (test code = 0084389472) 187 mg/dL 70-110 H Lab Interpretation (test code = Abnormal 37859-4) [facility] [id number] 10:44:07 Test Item Value Reference Range Interpretation Comments NT-proBNP (test code 3180 pg/mL See_Comment H [Autom ated = 0363307223) message] The system which generated this result transmitted reference range : <=125. The reference range was not used to interpret this result as normal/abnormal . JENNIFFER (test code = JENNIFFER) Biotin has been reported to cause a negative bias, interpret results relative to patient's use of biotin. Lab Interpretation Abnormal (test code = 12252-0) [facility]COMP[facility] (38285)2022-01-30 10:36:27 Test Item Value Reference Range Interpretation Comments NA (test code = 139 mmol/L 135-145 7914275421) K (test code = 3.7 mmol/L 3.5-5.0 3660095479) CL (test code = 92 mmol/L 98-108 L 8572815720) CO2 TOTAL (test code = 37 mmol/L 23-31 H 3065260840) AGAP (test code = 2-16 6853173344) BUN (test code = 22 mg/dL 7-23 3086554093) GLUCOSE (test code = 192 mg/dL 70-110 H 2817918111) CREATININE (test code = 1.04 mg/dL 0.50-1.04 0264147554) TOTAL BILI (test code = 0.7 mg/dL 0.1-1.8 3931911810) CALCIUM (test code = 8.3 mg/dL 8.6-10.6 L 4366336545) T PROTEIN (test code = 6.8 g/dL 6.3-8.2 7675404283) ALBUMIN (test code = 3.7 g/dL 3.5-5.0 4529089474) ALK PHOS (test code = 124 U/L 34-122 H 5837019313) ALTv (test code = 28 U/L 5-35 1742-6) AST(SGOT) (test code = 24 U/L 13-40 6746581757) eGFR (test code = mL/min/1.73m2 1029526482) JENNIFFER (test code = JENNIFFER) Association of Glomerular Filtration Rate (GFR) and Staging of Kidney Disease* + --+ --+ ------+| GFR (mL/min/1.73 m2) ?| With Kidney Damage ?| ?Without Kidney Damage+ --------+ --------+ +| ?>90 ?| ?Stage one ?| ? Normal ?+ ---+ ---+ -------+| ?60-89 ?| ?Stage two ?| ? Decreased GFR ? + --+ --+ ------+| ?30-59 ?| ?Stage three ?| ? Stage three ? + --+ --+ ------+| ?15-29 ?| ?Stage four ? | ? Stage four ?+ ---+ ---+ -------+| ?<15 (or dialysis) ? ?| ?Stage five ? | ? Stage five ?+ ---+ ---+ -------+ *Each stage assumes the associated GFR level has been in effect for at least three months. ?Stages 1 to 5, with or without kidney disease, indicate chronic kidney disease. Notes: Determination of stages one and two (with eGFR >59mL/min/1.73 m2) requires estimation of kidney damage for at least three months as defined by structural or functional abnormalities of the kidney, manifested by either:Pathological abnormalities or Markers of kidney damage (including abnormalities in the composition of the blood or urine or abnormalities in imaging tests). Lab Interpretation Abnormal (test code = 51047-9) [facility] WITH [id number] 09:41:38 Test Item Value Reference Range Interpretation Comments WBC (test code = See_Comment [Automated 1826-2) message] The sy stem which generated this result transmitted reference range : 4.30 - 11.10 10*3/?L. The reference range was not used to interpret this result as normal/abnormal . RBC (test code = See_Comment L [Automated 045-3) message] The sy stem which generated this result transmitted reference range : 3.93 - 5.25 10*6/?L. The reference range was not used to interpret this result as normal/abnormal . HGB (test code = 7.5 g/dL 11.6-15.0 L 718-7) HCT (test code = 24.1 % 35.7-45.2 L 4544-3) MCV (test code = 88.3 fL 80.6-95.5 787-2) MCH (test code = 27.5 pg 25.9-32.8 785-6) MCHC (test code = 31.1 g/dL 31.6-35.1 L 786-4) RDW-SD (test code = 47.8 fL 39.0-49.9 93306-9) RDW-CV (test code = 15.0 % 12.0-15.5 788-0) PLT (test code = See_Comment [Automated 777-3) message] The sy stem which generated this result transmitted reference range : 166 - 358 10*3/ ?L. The reference r josselyn was not used to interpret this result as normal/abnormal . MPV (test code = 9.1 fL 9.5-12.9 L 93758-6) NRBC/100 WBC (test See_Comment [Automat ed code = 4996493591) message] The system which generated this result transmitted reference range : 0.0 - 10.0 /100 WBCs. The refer ence range was not u sed to interpret th is result as normal/abnormal . NRBC x10^3 (test code <0.01 See_Comment [Auto mated = 3884406609) message] The s ystem which generated this result transmitted reference range : 10*3/?L. The reference range was not used to interpret this result as normal/abnormal . GRAN MAT (NEUT) % 85.7 % (test code = 770-8) IMM GRAN % (test code 0.60 % = 5904621241) LYMPH % (test code = 7.1 % 736-9) MONO % (test code = 6.1 % 5905-5) EOS % (test code = 0.1 % 713-8) BASO % (test code = 0.4 % 706-2) GRAN MAT x10^3(ANC) 7.16 10*3/uL 1.88-7.09 H (test code = 2426222489) IMM GRAN x10^3 (test 0.05 10*3/uL 0.00-0.06 code = 1971388945) LYMPH x10^3 (test code 0.59 10*3/uL 1.32-3.29 L = 731-0) MONO x10^3 (test code 0.51 10*3/uL 0.33-0.92 = 742-7) EOS x10^3 (test code = <0.03 0.03-0.39 L 711-2) BASO x10^3 (test code 0.03 10*3/uL 0.01-0.07 = 704-7) Lab Interpretation Abnormal (test code = 86439-2) [facility] GLUCOSE (AUTOMATED)2022-01-30 03:06:20 Test Item Value Reference Range Interpretation Comments POCT GLU (test code = 0624123633) 336 mg/dL 70-110 H Lab Interpretation (test code = Abnormal 87649-0) [facility] Test Item Value Reference Range Interpretation Comments PHOSPHORUS (test code = 8488675529) 4.3 mg/dL 2.5-5.0 Lab Interpretation (test code = Normal 10399-2) [facility] GLUCOSE (AUTOMATED)2022-01-29 21:21:35 Test Item Value Reference Range Interpretation Comments POCT GLU (test code = 5353418792) 354 mg/dL 70-110 H Lab Interpretation (test code = Abnormal 80923-7) [facility] GLUCOSE (AUTOMATED)2022-01-29 16:10:10 Test Item Value Reference Range Interpretation Comments POCT GLU (test code = 2713475442) 240 mg/dL 70-110 H Lab Interpretation (test code = Abnormal 72647-6) [facility] GLUCOSE (AUTOMATED)2022-01-29 15:16:07 Test Item Value Reference Range Interpretation Comments POCT GLU (test code = 1525220744) 219 mg/dL 70-110 H Lab Interpretation (test code = Abnormal 61841-4) [facility] GLUCOSE (AUTOMATED)2022-01-29 13:06:22 Test Item Value Reference Range Interpretation Comments POCT GLU (test code = 9586146834) 176 mg/dL 70-110 H Lab Interpretation (test code = Abnormal 02013-5) [facility] 10:31:34 Test Item Value Reference Range Interpretation Comments NA (test code = 141 mmol/L 135-145 5718723074) K (test code = 4.2 mmol/L 3.5-5.0 4179594902) CL (test code = 96 mmol/L 98-108 L 5941221879) CO2 TOTAL (test code = 37 mmol/L 23-31 H 8982986098) AGAP (test code = 2-16 8240534780) BUN (test code = 20 mg/dL 7-23 0043808004) GLUCOSE (test code = 179 mg/dL 70-110 H 2450619223) CREATININE (test code = 0.90 mg/dL 0.50-1.04 6054060940) TOTAL BILI (test code = 0.7 mg/dL 0.1-1.0 3241289078) CALCIUM (test code = 8.3 mg/dL 8.6-10.6 L 1568160343) T PROTEIN (test code = 7.3 g/dL 6.3-8.2 8632767332) ALBUMIN (test code = 3.9 g/dL 3.5-5.0 0963704228) ALK PHOS (test code = 151 U/L 34-122 H 4012684006) ALTv (test code = 44 U/L 5-35 H 1742-6) AST(SGOT) (test code = 54 U/L 13-40 H 0263433394) eGFR (test code = mL/min/1.73m2 8887892744) JENNIFFER (test code = JENNIFFER) Association of Glomerular Filtration Rate (GFR) and Staging of Kidney Disease* + --+ --+ ------+| GFR (mL/min/1.73 m2) ?| With Kidney Damage ?| ?Without Kidney Damage+ --------+ --------+ +| ?>90 ?| ?Stage one ?| ? Normal ?+ ---+ ---+ -------+| ?60-89 ?| ?Stage two ?| ? Decreased GFR ? + --+ --+ ------+| ?30-59 ?| ?Stage three ?| ? Stage three ? + --+ --+ ------+| ?15-29 ?| ?Stage four ? | ? Stage four ?+ ---+ ---+ -------+| ?<15 (or dialysis) ? ?| ?Stage five ? | ? Stage five ?+ ---+ ---+ -------+ *Each stage assumes the associated GFR level has been in effect for at least three months. ?Stages 1 to 5, with or without kidney disease, indicate chronic kidney disease. Notes: Determination of stages one and two (with eGFR >59mL/min/1.73 m2) requires estimation of kidney damage for at least three months as defined by structural or functional abnormalities of the kidney, manifested by either:Pathological abnormalities or Markers of kidney damage (including abnormalities in the composition of the blood or urine or abnormalities in imaging tests). Lab Interpretation Abnormal (test code = 38132-7) [id number] 10:06:38 Test Item Value Reference Range Interpretation Comments NT-proBNP (test code 3080 pg/mL See_Comment H [Autom ated = 0452699484) message] The system which generated this result transmitted reference range : <=125. The reference range was not used to interpret this result as normal/abnormal . JENNIFFER (test code = JENNIFFER) Biotin has been reported to cause a negative bias, interpret results relative to patient's use of biotin. Lab Interpretation Abnormal (test code = 46057-1) [facility]58[facility]35 Test Item Value Reference Range Interpretation Comments MAGNESIUM (test code = 1522206301) 1.8 mg/dL 1.7-2.4 Lab Interpretation (test code = Normal 85081-9) [facility] [id number] 09:47:53 Test Item Value Reference Range Interpretation Comments WBC (test code = See_Comment H [Automated 7190-2) message] The system which generated this result transmit alden reference range : 4.30 - 11.10 10*3/?L. The reference range was not used to interpret this result as normal/abnormal . RBC (test code = See_Comment L [Automated 299-8) message] The system which generated this result transmit alden reference range : 3.93 - 5.25 10*6/?L. The reference range was not used to interpret this result as normal/abnormal . HGB (test code = 9.3 g/dL 11.6-15.0 L 718-7) HCT (test code = 30.0 % 35.7-45.2 L 4544-3) MCV (test code = 90.6 fL 80.6-95.5 787-2) MCH (test code = 28.1 pg 25.9-32.8 785-6) MCHC (test code = 31.0 g/dL 31.6-35.1 L 786-4) RDW-SD (test code = 50.9 fL 39.0-49.9 H 35181-5) RDW-CV (test code = 15.5 % 12.0-15.5 788-0) PLT (test code = See_Comment [Automated 777-3) message] The system which generated this result transmit alden reference range : 166 - 358 10*3/ ?L. The reference range was not u sed to interpret th is result as normal/abnormal . MPV (test code = 9.9 fL 9.5-12.9 96155-0) NRBC/100 WBC (test See_Comment [Automat ed code = 3590992286) message] The system which generated this result transmit alden reference range : 0.0 - 10.0 /100 WBCs. The reference range was not used to interpret this result as normal/abnormal . NRBC x10^3 (test code <0.01 See_Comment [Auto mated = 5772813229) message] The system which generated this result transmit alden reference range : 10*3/?L. The reference range was not used to interpret this result as normal/abnormal . GRAN MAT (NEUT) % 87.2 % (test code = 770-8) IMM GRAN % (test code 0.50 % = 0343132907) LYMPH % (test code = 5.6 % 736-9) MONO % (test code = 5.9 % 5905-5) EOS % (test code = 0.4 % 713-8) BASO % (test code = 0.4 % 706-2) GRAN MAT x10^3(ANC) 10.37 10*3/uL 1.88-7.09 H (test code = 2907089022) IMM GRAN x10^3 (test 0.06 10*3/uL 0.00-0.06 code = 0450303784) LYMPH x10^3 (test code 0.66 10*3/uL 1.32-3.29 L = 731-0) MONO x10^3 (test code 0.70 10*3/uL 0.33-0.92 = 742-7) EOS x10^3 (test code = 0.05 10*3/uL 0.03-0.39 711-2) BASO x10^3 (test code 0.05 10*3/uL 0.01-0.07 = 704-7) Lab Interpretation Abnormal (test code = 41556-9) [facility] GLUCOSE (AUTOMATED)2022-01-29 05:48:29 Test Item Value Reference Range Interpretation Comments POCT GLU (test code = 3110692665) 297 mg/dL 70-110 H Lab Interpretation (test code = Abnormal 74897-1) [facility] GLUCOSE (AUTOMATED)2022-01-29 05:48:29 Test Item Value Reference Range Interpretation Comments POCT GLU (test code = 9152841386) 282 mg/dL 70-110 H Lab Interpretation (test code = Abnormal 60175-6) [facility] GLUCOSE (AUTOMATED)2022-01-28 23:35:33 Test Item Value Reference Range Interpretation Comments POCT GLU (test code = 9651524874) 302 mg/dL 70-110 H Lab Interpretation (test code = Abnormal 66746-4) [facility] [id number] 23:17:54 Test Item Value Reference Range Interpretation Comments VIT B12 (test code = 265 pg/mL 240-930 6138595713) JENNIFFER (test code = JENNIFFER) Biotin has been reported to cause a positive bias, interpret results relative to patient's use of biotin. Lab Interpretation (test Normal code = 77093-7) [facility] 20:35:43 Test Item Value Reference Range Interpretation Comments Procalcitonin (test 0.13 ng/mL <0.07 H code = 1721886558) JENNIFFER (test code = JENNIFFER) INTERPRETATION OF PROCALCITONIN RESULTS IN ADULTS >= 18 YEARS OF AGE Initiation and discontinuation of antibiotics on patients with suspected or confirmed Lower Respiratory Tract Infection in Adults >= 18 years of age. + +-------- --------+ + -----+|Procalcitonin |Interpretation ?|Antibiotic ? ? |Considerations ? |ng/mL ? | ?|recommendation | ? + +-------- --------+ + -----+| <0.1 ? | Bacterial ? ? ?| Strongly ? ? ?| ? | ?| infection very | discouraged ? | Overruling: ? | ?| unlikely ? ? ? | ? | ? Clinically unstable ? ? ? + +-------- --------+ + ? High risk for adverse ? ? | <0.25 ?| Bacterial ? ? ?| Discouraged ? | ? outcome ? | ?| infection ? ? ?| ? | ? SEE IMPORTANT NOTE ?| ?| unlikely ? ? ? | ? | ? + +-------- --------+ + -----+| >=0.25 ? ? ? | Bacterial ? ? ?| Encouraged ? ?| ? | ?| infection ? ? ?| ? | ? | ?| likely ? | ? | Consider treatment failure ?+ +------- ---------+ -+ if levels does not decrease | >0.5 ? | Bacterial ? ? ?| Strongly ? ? ?| appropriately ? | ?| infection very | encouraged ? ?| ? | ?| likely ? | ? | ? + +-------- --------+ + -----+ Discontinuation of antibiotics in high-acuity patients with suspected or confirmed sepsis in Adults >= 18 years of age. + +-------- --------+ + -----+|Procalcitonin |Interpretation ?|Antibiotic ? ? |Considerations ? |ng/mL ? | ?|recommendation | ? + +-------- --------+ + -----+| <0.25 ?| Bacterial ? ? ?| Strongly ? ? ?| ? | ?| infection very | discouraged ? | Overruling: ? | ?| unlikely ? ? ? | ? | ? Clinically unstable ? ? ? + +-------- --------+ + ? High risk for adverse ? ? | <0.5 or drop | Bacterial ? ? ?| Discouraged ? | ? outcome ? | >80% from ? ?| infection ? ? ?| ? | ? SEE IMPORTANT NOTE ?| highest PCT ?| unlikely ? ? ? | ? | ? | level ?| ?| ? | ? + +-------- --------+ + -----+| >=0.5 ?| Bacterial ? ? ?| Encouraged ? ?| ? | ?| infection ? ? ?| ? | ? | ?| likely ? | ? | Consider treatment failure ?+ +------- ---------+ -+ if levels does not decrease | >1.0 ? | Bacterial ? ? ?| Strongly ? ? ?| appropriately ? | ?| infection very | encouraged ? ?| ? | ?| likely ? | ? | ? + +-------- --------+ + -----+ Percentage of drop of Procalcitonin calculation for Discontinuation of antibiotics in high-acuity patients with suspected or confirmed sepsis in Adults >= 18 years of age. ? Procalcitonin highest{}-Procalcitonin current{}Delta Procalcitonin = x100% ? Procalcitonin current {} IMPORTANT NOTE: Procalcitonin may be elevated without bacterial infection by physiologic stress related to trauma, parekh, chronic dialysis, metastatic cancer, surgery in the past seven days, malaria, some fungal infections, and some forms of vasculitis. The interpretation algorithm may not apply to patients with immunosuppression (equivalent of >10 mg of prednisone daily), HIV with CD4 cell count < 350 cells/mm3, active malignancy on systemic chemotherapy, solid organ transplant or hematopoietic stem cell transplantation, or hospital acquired pneumonia. Additionally, some clinical trials of procalcitonin have excluded patients with shock requiring vasopressor use, acute respiratory failure requiring mechanical ventilation, or those with known lung abscess/empyema. For further information please refer to:[email or web address] Lab Interpretation Abnormal (test code = 41701-7) [facility], [id number] 20:34:43 Test Item Value Reference Range Interpretation Comments VIT D 25OH (test code = 23 ng/mL 25-80 L 92244-4) JENNIFFER (test code = JENNIFFER) Deficiency: <20 ng/mLInsufficiency: 20-24 ng/mLOptimal: 25-80 ng/mL Lab Interpretation (test Abnormal code = 64268-7) [facility] [id number] 18:15:31 Test Item Value Reference Interpretation Comments Range TROPONIN I (test 0.003 ng/mL See_Comment [Automated code = 6134385488) message] The system which generated this result transmitted reference range : <=0.034. The reference range was not used to interpret this result as normal/abnormal . JENNIFFER (test code = Reference (Normal) JENNIFFER) Range (defined by the 99th percentile reference limit): <= 0.034 ng/mL Note: Cardiac troponin begins to rise 3-4 hours after the onset of ischemia. Repeat in 4-6 hours if the sample was drawn within 3-4 hours of the onset of the symptom and found normal. Diagnosis of myocardial injury is made with acute changes in cTn concentrations with at least one serial sample above the 99th percentile upper reference limit (URL), taken together with the patient's clinical presentation. Biotin has been reported to cause a negative bias, interpret results relative to patient's use of biotin. Lab Interpretation Normal (test code = 95835-3) [facility] [id number] 18:04:12 Test Item Value Reference Range Interpretation Comments URIC ACID (test code = 6236297033) 9.3 mg/dL 2.9-6.0 H Lab Interpretation (test code = Abnormal 72919-3) [facility]-28 17:57:52 Test Item Value Reference Range Interpretation Comments Height (test code = in 2382696196) Weight (test code = lbs 2920209951) Systolic BP (test code = mmHg 0299977354) Diastolic BP (test code = mmHg 4569980312) Heart Rate (test code = bpm 3039901540) Ao root annulus (test 3.1 cm code = 5993380611) Ao root diam (test code = 3.10 cm 1672920252) Aortic root (test code = 3.1 cm 4461259481) LA size (test code = 4.9 cm 4862667931) LVOT diameter (test code 2.10 cm = 0234600683) E wave decelartion time 0.25 s (test code = 9968216250) MV Peak E Marva (test code 83.7 cm/s = 2995578381) MV Peak A Marva (test code 66.0 cm/s = 3141960179) E/A ratio (test code = ratio 9954219908) MV E/e' septal (test code 8.2 cm/s = 4047563377) Tapse (test code = 1.68 cm 5856067750) Aortic valve mean 77.4 cm/s velocity (test code = 9996773659) Ao peak marva (test code = 124.6 cm/s 1689522095) Ao VTI (test code = 20.7 cm 3775665953) Ao max PG (test code = 6.20 mm[Hg] 0576964129) AV peak gradient (test mmHg code = 7881183911) AV mean gradient (test mmHg code = 4326275885) LVOT stroke volume (test 62.00 cm3 code = 9698495422) LVOT peak marva (test code 104.3 cm/s = 8167654407) LVOT mn grad (test code = mmHg 7231798554) AV LVOT peak gradient mmHg (test code = 9929204865) LVOT peak VTI (test code 17.9 cm = 4326743577) AV area by cont VTI (test 3.0 cm2 code = 9451007311) AV area peak marva (test 2.9 cm2 code = 9987280140) LV V1 mean (test code = 63.60 cm/s 4554882027) AV valve area (test code 3.00 cm2 = 9601137092) LVIDD (test code = 5.20 cm 6394340591) IVS (test code = 0.79 cm 3371043096) Interventricular Septum 0.79 cm Diastolic Thickness by 2D (test code = 2419965) LVPWD (test code = 0.66 cm 3848100825) PW (test code = 0.66 cm 0.6-1.2 1095025476) EF(Teich) (test code = 48.60 % 2694182515) LVIDS (test code = 3.90 cm 8328236385) FS (test code = 25 % 7014142914) EF - 2D (test code = 48.60 % 62459509) Radiology Study observation (narrative) (test code = 30627-8) JENNIFFER (test code = JENNIFFER) ?Left?Ventricle: Normal systolic function with a visually estimated EF of 60 - 65%. ?Tricuspid?Valve: Insufficient regurgant jet to estimate RVSP. ?RA pressure is 10-15 mmHg. VitalsHeight Weight BSA (Calculated - sq m) BP Pulse 5' 1" (1.549 m) 230 lb (104.3 kg) 2.12 sq meters 118/66 96 [facility] [id number] 14:19:29 Test Item Value Reference Interpretation Comments Range TROPONIN I (test 0.003 ng/mL See_Comment [Automated code = 7981905950) message] The system which generated this result transmitted reference range : <=0.034. The reference range was not used to interpret this result as normal/abnormal . JENNIFFER (test code = Reference (Normal) JENNIFFER) Range (defined by the 99th percentile reference limit): <= 0.034 ng/mL Note: Cardiac troponin begins to rise 3-4 hours after the onset of ischemia. Repeat in 4-6 hours if the sample was drawn within 3-4 hours of the onset of the symptom and found normal. Diagnosis of myocardial injury is made with acute changes in cTn concentrations with at least one serial sample above the 99th percentile upper reference limit (URL), taken together with the patient's clinical presentation. Biotin has been reported to cause a negative bias, interpret results relative to patient's use of biotin. Lab Interpretation Normal (test code = 20292-6) [facility] [id number] 14:16:29 Test Item Value Reference Range Interpretation Comments NT-proBNP (test code 1170 pg/mL See_Comment H [Autom ated = 4315450271) message] The system which generated this result transmitted reference range : <=125. The reference range was not used to interpret this result as normal/abnormal . JENNIFFER (test code = JENNIFFER) Biotin has been reported to cause a negative bias, interpret results relative to patient's use of biotin. Lab Interpretation Abnormal (test code = 94252-7) [facility]IRON [id number] 14:14:29 Test Item Value Reference Range Interpretation Comments IRON (test code = 0588159295) 42 ug/dL 50-160 L TIBC (test code = 9693628079) 299 ug/dL 250-410 % FE SAT (test code = 9604703566) 14 % 20-50 L Lab Interpretation (test code = Abnormal 61150-3) [facility] GLUCOSE (AUTOMATED)2022-01-28 14:00:04 Test Item Value Reference Range Interpretation Comments POCT GLU (test code = 6215003005) 197 mg/dL 70-110 H Lab Interpretation (test code = Abnormal 57283-0) [facility] GLUCOSE (AUTOMATED)2022-01-28 13:01:52 Test Item Value Reference Range Interpretation Comments POCT GLU (test code = 0221885051) 211 mg/dL 70-110 H Lab Interpretation (test code = Abnormal 84364-3) [facility]FERRITIN [id number] 13:00:31 Test Item Value Reference Range Interpretation Comments FERRITIN (test code = 86.8 ng/mL 11.0-264.0 0572527953) JENNIFFER (test code = JENNIFFER) Biotin has been reported to cause a negative bias, interpret results relative to patient's use of biotin. Lab Interpretation (test Normal code = 42714-5) [facility]ATING [id number] 12:56:35 Test Item Value Reference Range Interpretation Comments TSH (test code = See_Comment [Automated message] 8809579522) The system [employer] generated this result transmitted ref erence range: 0.45 - 4 .70 mIU/L. The refe rence range was not u sed to interpret this result as normal/abnor mal. Lab Interpretation (test Normal code = 54595-3) [facility] [id number] 12:41:55 Test Item Value Reference Range Interpretation Comments ESR (test code = See_Comment H [Automated message] 9344625966) The system [employer] generated this result transmitted ref erence range: 0 - 20 m m/HR. The reference r josselyn was not used to interpret this result as normal/abnor mal. Lab Interpretation (test Abnormal code = 20529-2) [facility] [id number] 12:38:13 Test Item Value Reference Interpretation Comments Range TROPONIN I (test 0.003 ng/mL See_Comment [Automated code = 0787527835) message] The system which generated this result transmitted reference range : <=0.034. The reference range was not used to interpret this result as normal/abnormal . JENNIFFER (test code = Reference (Normal) JENNIFFER) Range (defined by the 99th percentile reference limit): <= 0.034 ng/mL Note: Cardiac troponin begins to rise 3-4 hours after the onset of ischemia. Repeat in 4-6 hours if the sample was drawn within 3-4 hours of the onset of the symptom and found normal. Diagnosis of myocardial injury is made with acute changes in cTn concentrations with at least one serial sample above the 99th percentile upper reference limit (URL), taken together with the patient's clinical presentation. Biotin has been reported to cause a negative bias, interpret results relative to patient's use of biotin. Lab Interpretation Normal (test code = 89051-3) [facility] [id number] 12:34:52 Test Item Value Reference Range Interpretation Comments NT-proBNP (test code 1150 pg/mL See_Comment H [Autom ated = 3046510923) message] The system which generated this result transmitted reference range : <=125. The reference range was not used to interpret this result as normal/abnormal . JENNIFFER (test code = JENNIFFER) Biotin has been reported to cause a negative bias, interpret results relative to patient's use of biotin. Lab Interpretation Abnormal (test code = 98955-1) [facility] HospitalLIPID PANEL (86703)(TOTAL CHOLESTEROL, TRIGLYCERIDES, HDL)2022-01-28 12:26:13 Test Item Value Reference Range Interpretation Comments CHOL (test code = 122 mg/dL 120-200 4361870858) HDL (test code = 27 mg/dL >50 L 1722365977) HDLC RATIO (test code = See_Comment [Au tomated message] 3466951182) The system [employer] generated this result transmit alden reference range : <=4.5. The refe rence range was not u sed to interpret th is result as normal/abnormal . TRIG (test code = 249 mg/dL 30-170 H 9298165132) LDL CHOL (test code = 45 mg/dL See_Comment [Auto mated message] 41924-6) The system [employer] generated this result transmit alden reference range : <=160. The refe rence range was not u sed to interpret th is result as normal/abnormal . VLDL (test code = 50 mg/dL 5-60 6854577083) Lab Interpretation (test Abnormal code = 09642-2) [facility]20[facility] 12:26:13 Test Item Value Reference Range Interpretation Comments MAGNESIUM (test code = 4095305846) 1.9 mg/dL 1.7-2.4 Lab Interpretation (test code = Normal 07741-2) [facility] (03490)2022-01-28 12:25:53 Test Item Value Reference Range Interpretation Comments NA (test code = 141 mmol/L 135-145 6265149932) K (test code = 4.9 mmol/L 3.5-5.0 3042757484) CL (test code = 101 mmol/L 98-108 0641007293) CO2 TOTAL (test code = 32 mmol/L 23-31 H 6543925837) AGAP (test code = 2-16 3736421017) BUN (test code = 20 mg/dL 7-23 7393825295) GLUCOSE (test code = 217 mg/dL 70-110 H 1682615016) CREATININE (test code = 1.05 mg/dL 0.50-1.04 H 7158153637) TOTAL BILI (test code = 0.7 mg/dL 0.1-1.9 8724478463) CALCIUM (test code = 8.5 mg/dL 8.6-10.6 L 5873019575) T PROTEIN (test code = 7.2 g/dL 6.3-8.2 7972418626) ALBUMIN (test code = 3.9 g/dL 3.5-5.0 9659902377) ALK PHOS (test code = 161 U/L 34-122 H 5571874292) ALTv (test code = 50 U/L 5-35 H 2-6) AST(SGOT) (test code = 61 U/L 13-40 H 9087655509) eGFR (test code = mL/min/1.73m2 3361706353) JENNIFFER (test code = JENNIFFER) Association of Glomerular Filtration Rate (GFR) and Staging of Kidney Disease* + --+ --+ ------+| GFR (mL/min/1.73 m2) ?| With Kidney Damage ?| ?Without Kidney Damage+ --------+ --------+ +| ?>90 ?| ?Stage one ?| ? Normal ?+ ---+ ---+ -------+| ?60-89 ?| ?Stage two ?| ? Decreased GFR ? + --+ --+ ------+| ?30-59 ?| ?Stage three ?| ? Stage three ? + --+ --+ ------+| ?15-29 ?| ?Stage four ? | ? Stage four ?+ ---+ ---+ -------+| ?<15 (or dialysis) ? ?| ?Stage five ? | ? Stage five ?+ ---+ ---+ -------+ *Each stage assumes the associated GFR level has been in effect for at least three months. ?Stages 1 to 5, with or without kidney disease, indicate chronic kidney disease. Notes: Determination of stages one and two (with eGFR >59mL/min/1.73 m2) requires estimation of kidney damage for at least three months as defined by structural or functional abnormalities of the kidney, manifested by either:Pathological abnormalities or Markers of kidney damage (including abnormalities in the composition of the blood or urine or abnormalities in imaging tests). Lab Interpretation Abnormal (test code = 80399-9) [facility] 12:25:53 Test Item Value Reference Range Interpretation Comments PHOSPHORUS (test code = 3351685213) 5.3 mg/dL 2.5-5.0 H Lab Interpretation (test code = Abnormal 85682-2) [id number] 12:25:33 Test Item Value Reference Range Interpretation Comments URIC ACID (test code = 5908460312) 9.5 mg/dL 2.9-6.0 H Lab Interpretation (test code = Abnormal 45191-8) [facility] [id number] 12:25:13 Test Item Value Reference Range Interpretation Comments CK (test code = 6461967507) 27 U/L 33-194 L Lab Interpretation (test code = Abnormal 29087-3) [facility] (A1C)2022-01-28 07:50:20 Test Item Value Reference Range Interpretation Comments HGB A1C (test code = 8.9 % 4.0-5.7 H 4548-4) JENNIFFER (test code = JENNIFFER) Reference RangesNormal: <5.7%Prediabetes: 5.7 - 6.4%Diabetes: > 6.5% Lab Interpretation (test Abnormal code = 22744-0) [facility] [id number] 03:04:27 Test Item Value Reference Interpretation Comments Range TROPONIN I (test 0.002 ng/mL See_Comment [Automated code = 2982929425) message] The system which generated this result transmitted reference range : <=0.034. The reference range was not used to interpret this result as normal/abnormal . JENNIFFER (test code = Reference (Normal) JENNIFFER) Range (defined by the 99th percentile reference limit): <= 0.034 ng/mL Note: Cardiac troponin begins to rise 3-4 hours after the onset of ischemia. Repeat in 4-6 hours if the sample was drawn within 3-4 hours of the onset of the symptom and found normal. Diagnosis of myocardial injury is made with acute changes in cTn concentrations with at least one serial sample above the 99th percentile upper reference limit (URL), taken together with the patient's clinical presentation. Biotin has been reported to cause a negative bias, interpret results relative to patient's use of biotin. Lab Interpretation Normal (test code = 49371-7) [facility]AL [id number] 03:01:09 Test Item Value Reference Range Interpretation Comments NT-proBNP (test code 358 pg/mL See_Comment H [Autom ated = 2546465849) message] The system which generated this result transmitted reference range : <=125. The reference range was not used to interpret this result as normal/abnormal . JENNIFFER (test code = JENNIFFER) Biotin has been reported to cause a negative bias, interpret results relative to patient's use of biotin. Lab Interpretation Abnormal (test code = 97423-8) [facility] [id number] 02:54:28 Test Item Value Reference Range Interpretation Comments APTT Patient (test See_Comment [Automat ed code = 3173-2) message] The system which generated this result transmitted reference range : 23 - 38 Seconds . The reference range was not used to interpr et this result as normal/abnormal . JENNIFFER (test code = JENNIFFER) The [facility] patient population mean normal value for aPTT is 30 seconds. Lab Interpretation Normal (test code = 23612-5) [facility]OLIC PAN[facility] ([id number])2022-01-28 02:52:27 Test Item Value Reference Range Interpretation Comments NA (test code = 137 mmol/L 135-145 5997377763) K (test code = 5.0 mmol/L 3.5-5.0 7381795079) CL (test code = 101 mmol/L 98-108 7327327923) CO2 TOTAL (test code = 22 mmol/L 23-31 L 3167231999) AGAP (test code = 2-16 5904954673) BUN (test code = 21 mg/dL 7-23 1433903033) GLUCOSE (test code = 334 mg/dL 70-110 H 2855986648) CREATININE (test code = 1.03 mg/dL 0.50-1.04 9304870822) TOTAL BILI (test code = 0.8 mg/dL 0.1-1.8 4201441066) CALCIUM (test code = 9.0 mg/dL 8.6-10.6 5640129605) T PROTEIN (test code = 7.3 g/dL 6.3-8.2 6114983626) ALBUMIN (test code = 4.2 g/dL 3.5-5.0 7187108397) ALK PHOS (test code = 186 U/L 34-122 H 1216634987) ALTv (test code = 53 U/L 5-35 H 1742-6) AST(SGOT) (test code = 98 U/L 13-40 H 6736971252) eGFR (test code = mL/min/1.73m2 9630075042) JENNIFFER (test code = JENNIFFER) Association of Glomerular Filtration Rate (GFR) and Staging of Kidney Disease* + --+ --+ ------+| GFR (mL/min/1.73 m2) ?| With Kidney Damage ?| ?Without Kidney Damage+ --------+ --------+ +| ?>90 ?| ?Stage one ?| ? Normal ?+ ---+ ---+ -------+| ?60-89 ?| ?Stage two ?| ? Decreased GFR ? + --+ --+ ------+| ?30-59 ?| ?Stage three ?| ? Stage three ? + --+ --+ ------+| ?15-29 ?| ?Stage four ? | ? Stage four ?+ ---+ ---+ -------+| ?<15 (or dialysis) ? ?| ?Stage five ? | ? Stage five ?+ ---+ ---+ -------+ *Each stage assumes the associated GFR level has been in effect for at least three months. ?Stages 1 to 5, with or without kidney disease, indicate chronic kidney disease. Notes: Determination of stages one and two (with eGFR >59mL/min/1.73 m2) requires estimation of kidney damage for at least three months as defined by structural or functional abnormalities of the kidney, manifested by either:Pathological abnormalities or Markers of kidney damage (including abnormalities in the composition of the blood or urine or abnormalities in imaging tests). Lab Interpretation Abnormal (test code = 57167-0) [facility] / [id number] 02:51:06 Test Item Value Reference Range Interpretation Comments PROTIME PATIENT (test See_Comment [Auto mated message] code = 5964-2) The system [employer] generated this result transmitted ref erence range: 12.0 - 1 4.7 Seconds. The re ference range was not u sed to interpret this result as normal/abnor mal. INR (test code = 6301-6) Nor mal INR <1.1; Warfarin Therap eutic range 2.0 to 3. 0 or 2.5 to 3.5, dep ending upon the indica tions. Lab Interpretation (test Normal code = 71341-0) [facility] WITH [id number] 02:43:03 Test Item Value Reference Range Interpretation Comments WBC (test code = See_Comment [Automated 6690-2) message] The sy stem which generated this result transmitted reference range : 4.30 - 11.10 10*3/?L. The reference range was not used to interpret this result as normal/abnormal . RBC (test code = See_Comment L [Automated 789-8) message] The sy stem which generated this result transmitted reference range : 3.93 - 5.25 10*6/?L. The reference range was not used to interpret this result as normal/abnormal . HGB (test code = 9.4 g/dL 11.6-15.0 L 718-7) HCT (test code = 29.3 % 35.7-45.2 L 4544-3) MCV (test code = 86.7 fL 80.6-95.5 787-2) MCH (test code = 27.8 pg 25.9-32.8 785-6) MCHC (test code = 32.1 g/dL 31.6-35.1 786-4) RDW-SD (test code = 49.4 fL 39.0-49.9 61034-3) RDW-CV (test code = 15.6 % 12.0-15.5 H 788-0) PLT (test code = See_Comment [Automated 777-3) message] The sy stem which generated this result transmitted reference range : 166 - 358 10*3/ ?L. The reference r josselyn was not used to interpret this result as normal/abnormal . MPV (test code = 9.7 fL 9.5-12.9 52481-2) NRBC/100 WBC (test See_Comment [Automat ed code = 3068729348) message] The system which generated this result transmitted reference range : 0.0 - 10.0 /100 WBCs. The refer ence range was not u sed to interpret th is result as normal/abnormal . NRBC x10^3 (test code <0.01 See_Comment [Auto mated = 4395814121) message] The s ystem which generated this result transmitted reference range : 10*3/?L. The reference range was not used to interpret this result as normal/abnormal . GRAN MAT (NEUT) % 88.0 % (test code = 770-8) IMM GRAN % (test code 0.60 % = 5721006358) LYMPH % (test code = 5.4 % 736-9) MONO % (test code = 4.5 % 5905-5) EOS % (test code = 0.9 % 713-8) BASO % (test code = 0.6 % 706-2) GRAN MAT x10^3(ANC) 9.50 10*3/uL 1.88-7.09 H (test code = 7582228946) IMM GRAN x10^3 (test 0.06 10*3/uL 0.00-0.06 code = 9845170582) LYMPH x10^3 (test code 0.58 10*3/uL 1.32-3.29 L = 731-0) MONO x10^3 (test code 0.49 10*3/uL 0.33-0.92 = 742-7) EOS x10^3 (test code = 0.10 10*3/uL 0.03-0.39 711-2) BASO x10^3 (test code 0.06 10*3/uL 0.01-0.07 = 704-7) Lab Interpretation Abnormal (test code = 06026-1) [facility]. METABOLIC PANEL ([id number])2022-01-12 23:54:59 Test Item Value Reference Range Interpretation Comments NA (test code = 143 mmol/L 135-145 8757585409) K (test code = 4.1 mmol/L 3.5-5.0 1345519258) CL (test code = 103 mmol/L 98-108 2796988535) CO2 TOTAL (test code = 27 mmol/L 23-31 8474295583) AGAP (test code = 2-16 7647562967) BUN (test code = 12 mg/dL 7-23 6577502582) GLUCOSE (test code = 278 mg/dL 70-110 H 5247965354) CREATININE (test code = 0.61 mg/dL 0.50-1.04 6003930789) TOTAL BILI (test code = 0.6 mg/dL 0.1-1.8 7089216063) CALCIUM (test code = 9.6 mg/dL 8.6-10.6 1105861298) T PROTEIN (test code = 7.6 g/dL 6.3-8.2 9161456862) ALBUMIN (test code = 4.3 g/dL 3.5-5.0 6987054652) ALK PHOS (test code = 130 U/L 34-122 H 4864316244) ALTv (test code = 29 U/L 5-35 1742-6) AST(SGOT) (test code = 39 U/L 13-40 9220559554) eGFR (test code = mL/min/1.73m2 8527457488) JENNIFFER (test code = JENNIFFER) Association of Glomerular Filtration Rate (GFR) and Staging of Kidney Disease* + --+ --+ ------+| GFR (mL/min/1.73 m2) ?| With Kidney Damage ?| ?Without Kidney Damage+ --------+ --------+ +| ?>90 ?| ?Stage one ?| ? Normal ?+ ---+ ---+ -------+| ?60-89 ?| ?Stage two ?| ? Decreased GFR ? + --+ --+ ------+| ?30-59 ?| ?Stage three ?| ? Stage three ? + --+ --+ ------+| ?15-29 ?| ?Stage four ? | ? Stage four ?+ ---+ ---+ -------+| ?<15 (or dialysis) ? ?| ?Stage five ? | ? Stage five ?+ ---+ ---+ -------+ *Each stage assumes the associated GFR level has been in effect for at least three months. ?Stages 1 to 5, with or without kidney disease, indicate chronic kidney disease. Notes: Determination of stages one and two (with eGFR >59mL/min/1.73 m2) requires estimation of kidney damage for at least three months as defined by structural or functional abnormalities of the kidney, manifested by either:Pathological abnormalities or Markers of kidney damage (including abnormalities in the composition of the blood or urine or abnormalities in imaging tests). Lab Interpretation Abnormal (test code = 05119-6) [facility] WITH [id number] 23:43:55 Test Item Value Reference Range Interpretation Comments WBC (test code = See_Comment Previous 6690-2) preliminary verified result was 8.07 10*3/?L on 01/12/2022 at 18 42 CDT [Automated message] The sy stem which generated this result transmitted reference range : 4.30 - 11.10 10*3/?L. The reference range was not used to interpret this result as normal/abnormal . RBC (test code = See_Comment Previous 789-8) preliminary verified result was 3.98 10*6/?L on 01/12/2022 at 18 42 CDT [Automated message] The sy stem which generated this result transmitted reference range : 3.93 - 5.25 10*6/?L. The reference range was not used to interpret this result as normal/abnormal . HGB (test code = 11.0 g/dL 11.6-15.0 L Previous 718-7) preliminary verified result was 11.1 g/dL on 01/12/2022 at 18 42 CDT HCT (test code = 36.5 % 35.7-45.2 Previous 4544-3) preliminary verified result was 36.7 % on 2021 at 1842 CDT MCV (test code = 92.2 fL 80.6-95.5 787-2) MCH (test code = 27.8 pg 25.9-32.8 Previous 785-6) preliminary verified result was 27.9 pg on 01/12/2022 at 18 42 CDT MCHC (test code = 30.1 g/dL 31.6-35.1 L Previous 786-4) preliminary verified result was 30.2 g/dL on 01/12/2022 at 18 42 CDT RDW-SD (test code = 47.8 fL 39.0-49.9 Previous 33437-4) preliminary verified result was 48.1 fL on 01/12/2022 at 18 42 CDT RDW-CV (test code = 14.1 % 12.0-15.5 Previous 788-0) preliminary verified result was 14.2 % on 2021 at 1842 CDT PLT (test code = See_Comment Previous 777-3) preliminary verified result was 224 10*3/?L on 01/12/2022 at 18 42 CDT [Automated message] The sy stem which generated this result transmitted reference range : 166 - 358 10*3/ ?L. The reference r josselyn was not used to interpret this result as normal/abnormal . MPV (test code = 10.0 fL 9.5-12.9 Previous 90729-6) preliminary verified result was 9.9 fL on 2021 at 1842 CDT IPF % (test code = 3.9 % 1.3-7.7 Platelet count 8386091724) measured by fluorescence method. NRBC/100 WBC (test See_Comment [Automat ed code = 6478311832) message] The system which generated this result transmitted reference range : 0.0 - 10.0 /100 WBCs. The refer ence range was not u sed to interpret th is result as normal/abnormal . NRBC x10^3 (test code <0.01 See_Comment [Auto mated = 9130689620) message] The s ystem which generated this result transmitted reference range : 10*3/?L. The reference range was not used to interpret this result as normal/abnormal . GRAN MAT (NEUT) % 85.9 % (test code = 770-8) IMM GRAN % (test code 0.90 % = 2565440765) LYMPH % (test code = 4.7 % 736-9) MONO % (test code = 5.3 % 5905-5) EOS % (test code = 2.6 % 713-8) BASO % (test code = 0.6 % 706-2) GRAN MAT x10^3(ANC) 6.93 10*3/uL 1.88-7.09 (test code = 5865538650) IMM GRAN x10^3 (test 0.07 10*3/uL 0.00-0.06 H code = 6886173244) LYMPH x10^3 (test code 0.38 10*3/uL 1.32-3.29 L = 731-0) MONO x10^3 (test code 0.43 10*3/uL 0.33-0.92 = 742-7) EOS x10^3 (test code = 0.21 10*3/uL 0.03-0.39 711-2) BASO x10^3 (test code 0.05 10*3/uL 0.01-0.07 = 704-7) Lab Interpretation Abnormal (test code = 52608-0) [facility] LACTIC [id number] 23:29:12 Test Item Value Reference Range Interpretation Comments PH (test code = 7.32-7.42 L 1481367547) PCO2 CELIA (test code = See_Comment H [Auto mated 0332927095) message] The sy stem which generated this result transmitted reference range : 41 - 51 mmHg. The reference range was not used to interpret this result as normal/abnormal . PO2 CELIA (test code = See_Comment HH [Autom ated 0122027849) message] The sy stem which generated this result transmitted reference range : 25 - 40 mmHg. The reference range was not used to interpret this result as normal/abnormal . HCO3 CELIA (test code = See_Comment H [Auto mated 9293055898) message] The sy stem which generated this result transmitted reference range : 24 - 28 mEq/L. The reference range was not used to interpret this result as normal/abnormal . AC VBE(BEAKER) (test mEq/L code = 3670526137) THB CELIA (test code = 12.1 g/dL 12.0-16.0 7587105169) %O2HB CELIA (test code = 90.8 % 52.0-63.0 H 8940904979) %COHB CELIA (test code = 0.0 % 0.0-1.5 8976035282) %METHB CELIA (test code = 0.0 % 0.4-1.5 L 7839809223) VOL%O2 CELIA (test code = 15.5 % 6.0-12.0 H 9617326581) NA (test code = 145 mmol/L 135-145 3434844302) K+ (test code = 4.1 mmol/L 3.5-5.0 5548435110) AC CA IONZ (test code = 5.30 mg/dL 4.50-5.30 7080121315) GLUCOSE (test code = 291 mg/dL 70-110 H 7985394713) LACTIC ACID (test code 1.04 mmol/L 0.50-2.20 = 3092207194) Lab Interpretation Abnormal (test code = 98282-0) [facility] GLUCOSE (AUTOMATED)2022-01-12 17:49:50 Test Item Value Reference Range Interpretation Comments POCT GLU (test code = 8249698191) 120 mg/dL 70-110 H Lab Interpretation (test code = Abnormal 75071-3) [facility] GLUCOSE (AUTOMATED)2022-01-12 13:25:37 Test Item Value Reference Range Interpretation Comments POCT GLU (test code = 3911120451) 76 mg/dL 70-110 Lab Interpretation (test code = Normal 26505-1) [facility] GLUCOSE (AUTOMATED)2022-01-12 05:53:23 Test Item Value Reference Range Interpretation Comments POCT GLU (test code = 4503480907) 107 mg/dL 70-110 Lab Interpretation (test code = Normal 63636-2) [facility] GLUCOSE (AUTOMATED)2022-01-11 23:03:13 Test Item Value Reference Range Interpretation Comments POCT GLU (test code = 1438551397) 142 mg/dL 70-110 H Lab Interpretation (test code = Abnormal 01153-9) [facility] GLUCOSE (AUTOMATED)2022-01-11 17:22:09 Test Item Value Reference Range Interpretation Comments POCT GLU (test code = 1028264904) 106 mg/dL 70-110 Lab Interpretation (test code = Normal 05341-6) [facility] GLUCOSE (AUTOMATED)2022-01-11 13:11:20 Test Item Value Reference Range Interpretation Comments POCT GLU (test code = 1272465389) 91 mg/dL 70-110 Lab Interpretation (test code = Normal 17089-6) [facility] METABOLIC PANEL (NA, K, CL, CO2, GLUCOSE, BUN, CREATININE, CA)2022-01-11 11:52:16 Test Item Value Reference Range Interpretation Comments NA (test code = 141 mmol/L 135-145 6004613443) K (test code = 3.7 mmol/L 3.5-5.0 5586397884) CL (test code = 100 mmol/L 98-108 3771096494) CO2 TOTAL (test code 30 mmol/L 23-31 = 0013053506) AGAP (test code = 2-16 4785196219) BUN (test code = 14 mg/dL 7-23 6607238483) GLUCOSE (test code = 85 mg/dL 70-110 4470319395) CREATININE (test code 0.62 mg/dL 0.50-1.04 = 2557384687) CALCIUM (test code = 8.9 mg/dL 8.6-10.6 4419955528) eGFR (test code = mL/min/1.73m2 4564077310) JENNIFFER (test code = JENNIFFER) Association of Glomerular Filtration Rate (GFR) and Staging of Kidney Disease* + + +- +| GFR (mL/min/1.73 m2) ?| With Kidney Damage ?| ?Without Kidney Damage+ ------+ ----+ ------+| ?>90 ?| ?Stage one ?| ? Normal ?+ -+ + -+| ?60-89 ?| ?Stage two ?| ? Decreased GFR ? + + +- +| ?30-59 ?| ?Stage three ?| ? Stage three ? + + +- +| ?15-29 ?| ?Stage four ? | ? Stage four ?+ -+ + -+| ?<15 (or dialysis) ? ?| ?Stage five ? | ? Stage five ?+ -+ + -+ *Each stage assumes the associated GFR level has been in effect for at least three months. ?Stages 1 to 5, with or without kidney disease, indicate chronic kidney disease. Notes: Determination of stages one and two (with eGFR >59mL/min/1.73 m2) requires estimation of kidney damage for at least three months as defined by structural or functional abnormalities of the kidney, manifested by either:Pathological abnormalities or Markers of kidney damage (including abnormalities in the composition of the blood or urine or abnormalities in imaging tests). [facility]52[facility]16 Test Item Value Reference Range Interpretation Comments MAGNESIUM (test code = 1199430639) 1.9 mg/dL 1.7-2.4 Lab Interpretation (test code = Normal 65735-5) [facility] 11:36:18 Test Item Value Reference Range Interpretation Comments POCT GLU (test code = 4510863989) 95 mg/dL 70-110 Lab Interpretation (test code = Normal 55999-5) [facility] WITH [id number] 10:51:12 Test Item Value Reference Range Interpretation Comments WBC (test code = See_Comment [Automated 6690-2) message] The sy stem which generated this result transmitted reference range : 4.30 - 11.10 10*3/?L. The reference range was not used to interpret this result as normal/abnormal . RBC (test code = See_Comment L [Automated 789-8) message] The sy stem which generated this result transmitted reference range : 3.93 - 5.25 10*6/?L. The reference range was not used to interpret this result as normal/abnormal . HGB (test code = 10.0 g/dL 11.6-15.0 L 718-7) HCT (test code = 32.0 % 35.7-45.2 L 4544-3) MCV (test code = 89.4 fL 80.6-95.5 787-2) MCH (test code = 27.9 pg 25.9-32.8 785-6) MCHC (test code = 31.3 g/dL 31.6-35.1 L 786-4) RDW-SD (test code = 46.5 fL 39.0-49.9 61648-5) RDW-CV (test code = 14.3 % 12.0-15.5 788-0) PLT (test code = See_Comment [Automated 777-3) message] The sy stem which generated this result transmitted reference range : 166 - 358 10*3/ ?L. The reference r josselyn was not used to interpret this result as normal/abnormal . MPV (test code = 8.5 fL 9.5-12.9 L 52503-4) NRBC/100 WBC (test See_Comment [Automat ed code = 6814795318) message] The system which generated this result transmitted reference range : 0.0 - 10.0 /100 WBCs. The refer ence range was not u sed to interpret th is result as normal/abnormal . NRBC x10^3 (test code <0.01 See_Comment [Auto mated = 3292649144) message] The s ystem which generated this result transmitted reference range : 10*3/?L. The reference range was not used to interpret this result as normal/abnormal . GRAN MAT (NEUT) % 72.4 % (test code = 770-8) IMM GRAN % (test code 0.60 % = 2658263333) LYMPH % (test code = 12.0 % 736-9) MONO % (test code = 9.8 % 5905-5) EOS % (test code = 4.4 % 713-8) BASO % (test code = 0.8 % 706-2) GRAN MAT x10^3(ANC) 4.64 10*3/uL 1.88-7.09 (test code = 1656674918) IMM GRAN x10^3 (test 0.04 10*3/uL 0.00-0.06 code = 2648620469) LYMPH x10^3 (test code 0.77 10*3/uL 1.32-3.29 L = 731-0) MONO x10^3 (test code 0.63 10*3/uL 0.33-0.92 = 742-7) EOS x10^3 (test code = 0.28 10*3/uL 0.03-0.39 711-2) BASO x10^3 (test code 0.05 10*3/uL 0.01-0.07 = 704-7) Lab Interpretation Abnormal (test code = 94252-9) [facility] GLUCOSE (AUTOMATED)2022-01-11 04:16:05 Test Item Value Reference Range Interpretation Comments POCT GLU (test code = 5143824605) 100 mg/dL 70-110 Lab Interpretation (test code = Normal 76430-7) [facility] GLUCOSE (AUTOMATED)2022-01-10 22:37:14 Test Item Value Reference Range Interpretation Comments POCT GLU (test code = 1935879377) 109 mg/dL 70-110 Lab Interpretation (test code = Normal 12058-6) [facility] GLUCOSE (AUTOMATED)2022-01-10 16:49:31 Test Item Value Reference Range Interpretation Comments POCT GLU (test code = 3385861777) 151 mg/dL 70-110 H Lab Interpretation (test code = Abnormal 39326-0) [facility] GLUCOSE (AUTOMATED)2022-01-10 13:04:04 Test Item Value Reference Range Interpretation Comments POCT GLU (test code = 6941362685) 133 mg/dL 70-110 H Lab Interpretation (test code = Abnormal 14298-4) [facility] 10:48:27 Test Item Value Reference Range Interpretation Comments POCT GLU (test code = 0924914956) 140 mg/dL 70-110 H Lab Interpretation (test code = Abnormal 86263-6) [facility] METABOLIC PANEL (NA, K, CL, CO2, GLUCOSE, BUN, CREATININE, CA)2022-01-10 07:43:41 Test Item Value Reference Range Interpretation Comments NA (test code = 139 mmol/L 135-145 7334665454) K (test code = 4.1 mmol/L 3.5-5.0 4614014183) CL (test code = 100 mmol/L 98-108 2023159853) CO2 TOTAL (test code = 32 mmol/L 23-31 H 4549114652) AGAP (test code = 2-16 0492511717) BUN (test code = 18 mg/dL 7-23 8214963233) GLUCOSE (test code = 146 mg/dL 70-110 H 6123022806) CREATININE (test code = 0.79 mg/dL 0.50-1.04 0797476982) CALCIUM (test code = 8.7 mg/dL 8.6-10.6 4350529239) eGFR (test code = mL/min/1.73m2 3031117666) JENNIFFER (test code = JENNIFFER) Association of Glomerular Filtration Rate (GFR) and Staging of Kidney Disease* + --+ --+ ------+| GFR (mL/min/1.73 m2) ?| With Kidney Damage ?| ?Without Kidney Damage+ --------+ --------+ +| ?>90 ?| ?Stage one ?| ? Normal ?+ ---+ ---+ -------+| ?60-89 ?| ?Stage two ?| ? Decreased GFR ? + --+ --+ ------+| ?30-59 ?| ?Stage three ?| ? Stage three ? + --+ --+ ------+| ?15-29 ?| ?Stage four ? | ? Stage four ?+ ---+ ---+ -------+| ?<15 (or dialysis) ? ?| ?Stage five ? | ? Stage five ?+ ---+ ---+ -------+ *Each stage assumes the associated GFR level has been in effect for at least three months. ?Stages 1 to 5, with or without kidney disease, indicate chronic kidney disease. Notes: Determination of stages one and two (with eGFR >59mL/min/1.73 m2) requires estimation of kidney damage for at least three months as defined by structural or functional abnormalities of the kidney, manifested by either:Pathological abnormalities or Markers of kidney damage (including abnormalities in the composition of the blood or urine or abnormalities in imaging tests). Lab Interpretation Abnormal (test code = 07675-2) [facility]43:41 Test Item Value Reference Range Interpretation Comments MAGNESIUM (test code = 2348813430) 2.1 mg/dL 1.7-2.4 Lab Interpretation (test code = Normal 14181-9) [facility] WITH [id number] 07:29:01 Test Item Value Reference Range Interpretation Comments WBC (test code = See_Comment [Automated 6690-2) message] The sy stem which generated this result transmitted reference range : 4.30 - 11.10 10*3/?L. The reference range was not used to interpret this result as normal/abnormal . RBC (test code = See_Comment L [Automated 789-8) message] The sy stem which generated this result transmitted reference range : 3.93 - 5.25 10*6/?L. The reference range was not used to interpret this result as normal/abnormal . HGB (test code = 9.5 g/dL 11.6-15.0 L 718-7) HCT (test code = 30.5 % 35.7-45.2 L 4544-3) MCV (test code = 90.8 fL 80.6-95.5 787-2) MCH (test code = 28.3 pg 25.9-32.8 785-6) MCHC (test code = 31.1 g/dL 31.6-35.1 L 786-4) RDW-SD (test code = 47.2 fL 39.0-49.9 99778-0) RDW-CV (test code = 14.1 % 12.0-15.5 788-0) PLT (test code = See_Comment [Automated 777-3) message] The sy stem which generated this result transmitted reference range : 166 - 358 10*3/ ?L. The reference r josselyn was not used to interpret this result as normal/abnormal . MPV (test code = 8.3 fL 9.5-12.9 L 69989-7) NRBC/100 WBC (test See_Comment [Automat ed code = 7092843826) message] The system which generated this result transmitted reference range : 0.0 - 10.0 /100 WBCs. The refer ence range was not u sed to interpret th is result as normal/abnormal . NRBC x10^3 (test code <0.01 See_Comment [Auto mated = 3191485232) message] The s ystem which generated this result transmitted reference range : 10*3/?L. The reference range was not used to interpret this result as normal/abnormal . GRAN MAT (NEUT) % 75.5 % (test code = 770-8) IMM GRAN % (test code 0.50 % = 8586338477) LYMPH % (test code = 13.6 % 736-9) MONO % (test code = 5.4 % 5905-5) EOS % (test code = 4.4 % 713-8) BASO % (test code = 0.6 % 706-2) GRAN MAT x10^3(ANC) 5.01 10*3/uL 1.88-7.09 (test code = 9449905143) IMM GRAN x10^3 (test 0.03 10*3/uL 0.00-0.06 code = 8695602680) LYMPH x10^3 (test code 0.90 10*3/uL 1.32-3.29 L = 731-0) MONO x10^3 (test code 0.36 10*3/uL 0.33-0.92 = 742-7) EOS x10^3 (test code = 0.29 10*3/uL 0.03-0.39 711-2) BASO x10^3 (test code 0.04 10*3/uL 0.01-0.07 = 704-7) Lab Interpretation Abnormal (test code = 07443-4) [facility] GLUCOSE (AUTOMATED)2022-01-10 04:49:48 Test Item Value Reference Range Interpretation Comments POCT GLU (test code = 7328487895) 150 mg/dL 70-110 H Lab Interpretation (test code = Abnormal 29187-4) [facility] GLUCOSE (AUTOMATED)2022-01-09 17:24:10 Test Item Value Reference Range Interpretation Comments POCT GLU (test code = 5652749582) 114 mg/dL 70-110 H Lab Interpretation (test code = Abnormal 07312-9) [facility] GLUCOSE (AUTOMATED)2022-01-09 12:48:19 Test Item Value Reference Range Interpretation Comments POCT GLU (test code = 4504105176) 107 mg/dL 70-110 Lab Interpretation (test code = Normal 79924-0) [facility]NA, K, CL, CO2, GLUCOSE, BUN, CREATININE, CA)2022-01-09 11:11:00 Test Item Value Reference Range Interpretation Comments NA (test code = 141 mmol/L 135-145 2090525939) K (test code = 3.7 mmol/L 3.5-5.0 7574710640) CL (test code = 100 mmol/L 98-108 5434821189) CO2 TOTAL (test code = 32 mmol/L 23-31 H 3707917822) AGAP (test code = 2-16 0731916743) BUN (test code = 19 mg/dL 7-23 3989374366) GLUCOSE (test code = 115 mg/dL 70-110 H 5824893810) CREATININE (test code = 0.81 mg/dL 0.50-1.04 1319280849) CALCIUM (test code = 8.6 mg/dL 8.6-10.6 7097460494) eGFR (test code = mL/min/1.73m2 0526613975) JENNIFFER (test code = JENNIFFER) Association of Glomerular Filtration Rate (GFR) and Staging of Kidney Disease* + --+ --+ ------+| GFR (mL/min/1.73 m2) ?| With Kidney Damage ?| ?Without Kidney Damage+ --------+ --------+ +| ?>90 ?| ?Stage one ?| ? Normal ?+ ---+ ---+ -------+| ?60-89 ?| ?Stage two ?| ? Decreased GFR ? + --+ --+ ------+| ?30-59 ?| ?Stage three ?| ? Stage three ? + --+ --+ ------+| ?15-29 ?| ?Stage four ? | ? Stage four ?+ ---+ ---+ -------+| ?<15 (or dialysis) ? ?| ?Stage five ? | ? Stage five ?+ ---+ ---+ -------+ *Each stage assumes the associated GFR level has been in effect for at least three months. ?Stages 1 to 5, with or without kidney disease, indicate chronic kidney disease. Notes: Determination of stages one and two (with eGFR >59mL/min/1.73 m2) requires estimation of kidney damage for at least three months as defined by structural or functional abnormalities of the kidney, manifested by either:Pathological abnormalities or Markers of kidney damage (including abnormalities in the composition of the blood or urine or abnormalities in imaging tests). Lab Interpretation Abnormal (test code = 28775-1) [facility] WITH [id number] 10:57:57 Test Item Value Reference Range Interpretation Comments WBC (test code = See_Comment [Automated 7317-2) message] The sy stem which generated this result transmitted reference range : 4.30 - 11.10 10*3/?L. The reference range was not used to interpret this result as normal/abnormal . RBC (test code = See_Comment L [Automated 119-8) message] The sy stem which generated this result transmitted reference range : 3.93 - 5.25 10*6/?L. The reference range was not used to interpret this result as normal/abnormal . HGB (test code = 9.6 g/dL 11.6-15.0 L 718-7) HCT (test code = 31.9 % 35.7-45.2 L 4544-3) MCV (test code = 92.5 fL 80.6-95.5 787-2) MCH (test code = 27.8 pg 25.9-32.8 785-6) MCHC (test code = 30.1 g/dL 31.6-35.1 L 786-4) RDW-SD (test code = 49.1 fL 39.0-49.9 10343-6) RDW-CV (test code = 14.6 % 12.0-15.5 788-0) PLT (test code = See_Comment [Automated 777-3) message] The sy stem which generated this result transmitted reference range : 166 - 358 10*3/ ?L. The reference r josselyn was not used to interpret this result as normal/abnormal . MPV (test code = 8.6 fL 9.5-12.9 L 54757-3) NRBC/100 WBC (test See_Comment [Automat ed code = 4565861510) message] The system which generated this result transmitted reference range : 0.0 - 10.0 /100 WBCs. The refer ence range was not u sed to interpret th is result as normal/abnormal . NRBC x10^3 (test code <0.01 See_Comment [Auto mated = 3785648405) message] The s ystem which generated this result transmitted reference range : 10*3/?L. The reference range was not used to interpret this result as normal/abnormal . GRAN MAT (NEUT) % 79.2 % (test code = 770-8) IMM GRAN % (test code 0.40 % = 1687334772) LYMPH % (test code = 10.7 % 736-9) MONO % (test code = 5.4 % 5905-5) EOS % (test code = 3.5 % 713-8) BASO % (test code = 0.8 % 706-2) GRAN MAT x10^3(ANC) 6.15 10*3/uL 1.88-7.09 (test code = 2930399115) IMM GRAN x10^3 (test 0.03 10*3/uL 0.00-0.06 code = 4477864965) LYMPH x10^3 (test code 0.83 10*3/uL 1.32-3.29 L = 731-0) MONO x10^3 (test code 0.42 10*3/uL 0.33-0.92 = 742-7) EOS x10^3 (test code = 0.27 10*3/uL 0.03-0.39 711-2) BASO x10^3 (test code 0.06 10*3/uL 0.01-0.07 = 704-7) Lab Interpretation Abnormal (test code = 29662-4) [facility] GLUCOSE (AUTOMATED)2022-01-09 10:44:16 Test Item Value Reference Range Interpretation Comments POCT GLU (test code = 5671027091) 116 mg/dL 70-110 H Lab Interpretation (test code = Abnormal 04858-5) [facility] GLUCOSE (AUTOMATED)2022-01-09 04:22:02 Test Item Value Reference Range Interpretation Comments POCT GLU (test code = 4061678534) 124 mg/dL 70-110 H Lab Interpretation (test code = Abnormal 80996-7) [facility] GLUCOSE (AUTOMATED)2022-01-08 23:21:27 Test Item Value Reference Range Interpretation Comments POCT GLU (test code = 2966903169) 122 mg/dL 70-110 H Lab Interpretation (test code = Abnormal 41933-0) [facility] GLUCOSE (AUTOMATED)2022-01-08 18:15:20 Test Item Value Reference Range Interpretation Comments POCT GLU (test code = 8718681043) 104 mg/dL 70-110 Lab Interpretation (test code = Normal 40556-3) [facility] GLUCOSE (AUTOMATED)2022-01-08 13:35:04 Test Item Value Reference Range Interpretation Comments POCT GLU (test code = 0748153880) 132 mg/dL 70-110 H Lab Interpretation (test code = Abnormal 22550-9) [facility] METABOLIC PANEL (NA, K, CL, CO2, GLUCOSE, BUN, CREATININE, CA)2022-01-08 11:08:57 Test Item Value Reference Range Interpretation Comments NA (test code = 142 mmol/L 135-145 8779265287) K (test code = 3.5 mmol/L 3.5-5.0 2040157172) CL (test code = 99 mmol/L 98-108 0845513499) CO2 TOTAL (test code = 34 mmol/L 23-31 H 0060217616) AGAP (test code = 2-16 3956408313) BUN (test code = 16 mg/dL 7-23 3492376262) GLUCOSE (test code = 131 mg/dL 70-110 H 8968501228) CREATININE (test code = 0.83 mg/dL 0.50-1.04 0632684717) CALCIUM (test code = 8.5 mg/dL 8.6-10.6 L 0237163952) eGFR (test code = mL/min/1.73m2 7791150773) JENNIFFER (test code = JENNIFFER) Association of Glomerular Filtration Rate (GFR) and Staging of Kidney Disease* + --+ --+ ------+| GFR (mL/min/1.73 m2) ?| With Kidney Damage ?| ?Without Kidney Damage+ --------+ --------+ +| ?>90 ?| ?Stage one ?| ? Normal ?+ ---+ ---+ -------+| ?60-89 ?| ?Stage two ?| ? Decreased GFR ? + --+ --+ ------+| ?30-59 ?| ?Stage three ?| ? Stage three ? + --+ --+ ------+| ?15-29 ?| ?Stage four ? | ? Stage four ?+ ---+ ---+ -------+| ?<15 (or dialysis) ? ?| ?Stage five ? | ? Stage five ?+ ---+ ---+ -------+ *Each stage assumes the associated GFR level has been in effect for at least three months. ?Stages 1 to 5, with or without kidney disease, indicate chronic kidney disease. Notes: Determination of stages one and two (with eGFR >59mL/min/1.73 m2) requires estimation of kidney damage for at least three months as defined by structural or functional abnormalities of the kidney, manifested by either:Pathological abnormalities or Markers of kidney damage (including abnormalities in the composition of the blood or urine or abnormalities in imaging tests). Lab Interpretation Abnormal (test code = 25762-8) [facility] WITH [id number] 10:58:37 Test Item Value Reference Range Interpretation Comments WBC (test code = See_Comment [Automated 0718-2) message] The sy stem which generated this result transmitted reference range : 4.30 - 11.10 10*3/?L. The reference range was not used to interpret this result as normal/abnormal . RBC (test code = See_Comment L [Automated 619-8) message] The sy stem which generated this result transmitted reference range : 3.93 - 5.25 10*6/?L. The reference range was not used to interpret this result as normal/abnormal . HGB (test code = 9.8 g/dL 11.6-15.0 L 718-7) HCT (test code = 32.0 % 35.7-45.2 L 4544-3) MCV (test code = 90.7 fL 80.6-95.5 787-2) MCH (test code = 27.8 pg 25.9-32.8 785-6) MCHC (test code = 30.6 g/dL 31.6-35.1 L 786-4) RDW-SD (test code = 48.8 fL 39.0-49.9 18398-7) RDW-CV (test code = 14.7 % 12.0-15.5 788-0) PLT (test code = See_Comment [Automated 777-3) message] The sy stem which generated this result transmitted reference range : 166 - 358 10*3/ ?L. The reference r josselyn was not used to interpret this result as normal/abnormal . MPV (test code = 8.5 fL 9.5-12.9 L 46118-8) NRBC/100 WBC (test See_Comment [Automat ed code = 5415003161) message] The system which generated this result transmitted reference range : 0.0 - 10.0 /100 WBCs. The refer ence range was not u sed to interpret th is result as normal/abnormal . NRBC x10^3 (test code <0.01 See_Comment [Auto mated = 1180733405) message] The s ystem which generated this result transmitted reference range : 10*3/?L. The reference range was not used to interpret this result as normal/abnormal . GRAN MAT (NEUT) % 75.9 % (test code = 770-8) IMM GRAN % (test code 0.30 % = 4690522817) LYMPH % (test code = 12.3 % 736-9) MONO % (test code = 7.0 % 5905-5) EOS % (test code = 3.6 % 713-8) BASO % (test code = 0.9 % 706-2) GRAN MAT x10^3(ANC) 4.89 10*3/uL 1.88-7.09 (test code = 6653864729) IMM GRAN x10^3 (test <0.03 0.00-0.06 code = 7134051646) LYMPH x10^3 (test code 0.79 10*3/uL 1.32-3.29 L = 731-0) MONO x10^3 (test code 0.45 10*3/uL 0.33-0.92 = 742-7) EOS x10^3 (test code = 0.23 10*3/uL 0.03-0.39 711-2) BASO x10^3 (test code 0.06 10*3/uL 0.01-0.07 = 704-7) Lab Interpretation Abnormal (test code = 99268-4) [facility] GLUCOSE (AUTOMATED)2022-01-08 10:57:56 Test Item Value Reference Range Interpretation Comments POCT GLU (test code = 8090437987) 122 mg/dL 70-110 H Lab Interpretation (test code = Abnormal 67173-2) [facility] GLUCOSE (AUTOMATED)2022-01-08 05:44:22 Test Item Value Reference Range Interpretation Comments POCT GLU (test code = 5137994893) 150 mg/dL 70-110 H Lab Interpretation (test code = Abnormal 46496-0) [facility] GLUCOSE (AUTOMATED)2022-01-07 22:00:04 Test Item Value Reference Range Interpretation Comments POCT GLU (test code = 5770818065) 175 mg/dL 70-110 H Lab Interpretation (test code = Abnormal 62983-9) [facility] GLUCOSE (AUTOMATED)2022-01-07 17:25:35 Test Item Value Reference Range Interpretation Comments POCT GLU (test code = 9307464466) 149 mg/dL 70-110 H Lab Interpretation (test code = Abnormal 73805-2) [id number]:01:23 Test Item Value Reference Range Interpretation Comments Blood Culture-Aerobic No organisms No growth Previo us (test code = 49142-7) isolated prelim inary verified result was Culture In Progress on 01/02/2022 at 13 01 CDTPrevious preliminary verified result was No growth a t 24 hours on 01/03/2022 at 10 CDTPrevious preliminary verified result was No growth a t 48 hours on 01/04/2022 at 10 CDTPrevious preliminary verified result was No growth a t 72 hours on 01/05/2022 at 10 01 CDT Blood No organisms No growth Previous Culture-Anaerobic isolated preliminar y (test code = 68847-6) verifi ed result was Culture In Progress on 01/02/2022 at 07 08 CDTPrevious preliminary verified result was No growth a t 24 hours on 01/03/2022 at 10 CDTPrevious preliminary verified result was No growth a t 48 hours on 01/04/2022 at 10 CDTPrevious preliminary verified result was No growth a t 72 hours on 01/05/2022 at 10 CDT Lab Interpretation Normal (test code = 16778-6) [facility] 15:01:23 Test Item Value Reference Range Interpretation Comments Blood Culture-Aerobic No organisms No growth Previo us (test code = 65077-8) isolated prelim inary verified result was Culture In Progress on 01/02/2022 at 07 08 CDTPrevious preliminary verified result was No growth a t 24 hours on 01/03/2022 at 10 CDTPrevious preliminary verified result was No growth a t 48 hours on 01/04/2022 at 10 CDTPrevious preliminary verified result was No growth a t 72 hours on 01/05/2022 at 10 CDT Blood No organisms No growth Previous Culture-Anaerobic isolated preliminar y (test code = 11262-8) verifi ed result was Culture In Progress on 01/02/2022 at 13 CDTPrevious preliminary verified result was No growth a t 24 hours on 01/03/2022 at 10 CDTPrevious preliminary verified result was No growth a t 48 hours on 01/04/2022 at 10 CDTPrevious preliminary verified result was No growth a t 72 hours on 01/05/2022 at 10 01 CDT Lab Interpretation Normal (test code = 58343-5) [facility] 13:20:20 Test Item Value Reference Range Interpretation Comments POCT GLU (test code = 7197700281) 153 mg/dL 70-110 H Lab Interpretation (test code = Abnormal 99139-3) [facility] METABOLIC PANEL (NA, K, CL, CO2, GLUCOSE, BUN, CREATININE, CA)2022-01-07 07:43:22 Test Item Value Reference Range Interpretation Comments NA (test code = 141 mmol/L 135-145 5939150681) K (test code = 3.8 mmol/L 3.5-5.0 2247437684) CL (test code = 101 mmol/L 98-108 0716859255) CO2 TOTAL (test code = 33 mmol/L 23-31 H 8604937072) AGAP (test code = 2-16 3080539746) BUN (test code = 13 mg/dL 7-23 3932857081) GLUCOSE (test code = 127 mg/dL 70-110 H 2444883860) CREATININE (test code = 0.89 mg/dL 0.50-1.04 0832853127) CALCIUM (test code = 8.4 mg/dL 8.6-10.6 L 9426616391) eGFR (test code = mL/min/1.73m2 6351108362) JENNIFFER (test code = JENNIFFER) Association of Glomerular Filtration Rate (GFR) and Staging of Kidney Disease* + --+ --+ ------+| GFR (mL/min/1.73 m2) ?| With Kidney Damage ?| ?Without Kidney Damage+ --------+ --------+ +| ?>90 ?| ?Stage one ?| ? Normal ?+ ---+ ---+ -------+| ?60-89 ?| ?Stage two ?| ? Decreased GFR ? + --+ --+ ------+| ?30-59 ?| ?Stage three ?| ? Stage three ? + --+ --+ ------+| ?15-29 ?| ?Stage four ? | ? Stage four ?+ ---+ ---+ -------+| ?<15 (or dialysis) ? ?| ?Stage five ? | ? Stage five ?+ ---+ ---+ -------+ *Each stage assumes the associated GFR level has been in effect for at least three months. ?Stages 1 to 5, with or without kidney disease, indicate chronic kidney disease. Notes: Determination of stages one and two (with eGFR >59mL/min/1.73 m2) requires estimation of kidney damage for at least three months as defined by structural or functional abnormalities of the kidney, manifested by either:Pathological abnormalities or Markers of kidney damage (including abnormalities in the composition of the blood or urine or abnormalities in imaging tests). Lab Interpretation Abnormal (test code = 38661-7) [facility] with [id number] 07:29:22 Test Item Value Reference Range Interpretation Comments WBC (test code = See_Comment [Automated 6690-2) message] The sy stem which generated this result transmitted reference range : 4.30 - 11.10 10*3/?L. The reference range was not used to interpret this result as normal/abnormal . RBC (test code = See_Comment L [Automated 789-8) message] The sy stem which generated this result transmitted reference range : 3.93 - 5.25 10*6/?L. The reference range was not used to interpret this result as normal/abnormal . HGB (test code = 10.5 g/dL 11.6-15.0 L 718-7) HCT (test code = 33.9 % 35.7-45.2 L 4544-3) MCV (test code = 89.9 fL 80.6-95.5 787-2) MCH (test code = 27.9 pg 25.9-32.8 785-6) MCHC (test code = 31.0 g/dL 31.6-35.1 L 786-4) RDW-SD (test code = 48.2 fL 39.0-49.9 64002-3) RDW-CV (test code = 14.7 % 12.0-15.5 788-0) PLT (test code = See_Comment [Automated 777-3) message] The sy stem which generated this result transmitted reference range : 166 - 358 10*3/ ?L. The reference r josselyn was not used to interpret this result as normal/abnormal . MPV (test code = 9.0 fL 9.5-12.9 L 93071-0) NRBC/100 WBC (test See_Comment [Automat ed code = 8363191222) message] The system which generated this result transmitted reference range : 0.0 - 10.0 /100 WBCs. The refer ence range was not u sed to interpret th is result as normal/abnormal . NRBC x10^3 (test code <0.01 See_Comment [Auto mated = 8815892965) message] The s ystem which generated this result transmitted reference range : 10*3/?L. The reference range was not used to interpret this result as normal/abnormal . GRAN MAT (NEUT) % 81.4 % (test code = 770-8) IMM GRAN % (test code 0.30 % = 3775231345) LYMPH % (test code = 10.3 % 736-9) MONO % (test code = 4.6 % 5905-5) EOS % (test code = 2.8 % 713-8) BASO % (test code = 0.6 % 706-2) GRAN MAT x10^3(ANC) 6.39 10*3/uL 1.88-7.09 (test code = 9537795056) IMM GRAN x10^3 (test <0.03 0.00-0.06 code = 8144179874) LYMPH x10^3 (test code 0.81 10*3/uL 1.32-3.29 L = 731-0) MONO x10^3 (test code 0.36 10*3/uL 0.33-0.92 = 742-7) EOS x10^3 (test code = 0.22 10*3/uL 0.03-0.39 711-2) BASO x10^3 (test code 0.05 10*3/uL 0.01-0.07 = 704-7) Lab Interpretation Abnormal (test code = 53282-0) [facility]:55 Test Item Value Reference Range Interpretation Comments POCT GLU (test code = 4833553491) 125 mg/dL 70-110 H Lab Interpretation (test code = Abnormal 10543-8) [facility] [id number] 04:01:23 Test Item Value Reference Range Interpretation Comments Blood Culture-Aerobic No organisms No growth Previo us (test code = 47162-8) isolated prelim inary verified result was Culture In Progress on 01/02/2022 at 01 01 CDTPrevious preliminary verified result was No growth a t 24 hours on 01/02/2022 at 16 08 CDTPrevious preliminary verified result was No growth a t 48 hours on 01/03/2022 at 16 08 CDTPrevious preliminary verified result was No growth a t 72 hours on 01/04/2022 at 22 CDT Blood No organisms No growth Previous Culture-Anaerobic isolated preliminar y (test code = 67837-1) verifi ed result was Culture In Progress on 01/02/2022 at 07 26 CDTPrevious preliminary verified result was No growth a t 24 hours on 01/02/2022 at 16 08 CDTPrevious preliminary verified result was No growth a t 48 hours on 01/03/2022 at 16 08 CDTPrevious preliminary verified result was No growth a t 72 hours on 01/04/2022 at 16 08 CDT JENNIFFER (test code = JENNIFFER) Optimal blood volume for culture is 8-10 mL per bottle. A suboptimal volume of blood was collected for this culture, which could adversely affect recovery and/or time of detection of organisms. Interpret results accordingly. Lab Interpretation Normal (test code = 59822-4) [facility] [id number] 03:01:22 Test Item Value Reference Range Interpretation Comments Blood Culture-Aerobic No organisms No growth Previo us (test code = 78001-0) isolated prelim inary verified result was Culture In Progress on 01/02/2022 at 07 26 CDTPrevious preliminary verified result was No growth a t 24 hours on 01/02/2022 at 16 08 CDTPrevious preliminary verified result was No growth a t 48 hours on 01/03/2022 at 16 08 CDTPrevious preliminary verified result was No growth a t 72 hours on 01/04/2022 at 16 08 CDT Blood No organisms No growth Previous Culture-Anaerobic isolated preliminar y (test code = 94994-5) verifi ed result was Culture In Progress on 01/02/2022 at 07 26 CDTPrevious preliminary verified result was No growth a t 24 hours on 01/02/2022 at 16 08 CDTPrevious preliminary verified result was No growth a t 48 hours on 01/03/2022 at 16 08 CDTPrevious preliminary verified result was No growth a t 72 hours on 01/04/2022 at 22 01 CDT JENNIFFER (test code = JENNIFFER) Optimal blood volume for culture is 8-10 mL per bottle. A suboptimal volume of blood was collected for this culture, which could adversely affect recovery and/or time of detection of organisms. Interpret results accordingly. Lab Interpretation Normal (test code = 23849-4) [facility] GLUCOSE (AUTOMATED)2022-01-06 23:38:26 Test Item Value Reference Range Interpretation Comments POCT GLU (test code = 7972983515) 181 mg/dL 70-110 H Lab Interpretation (test code = Abnormal 72126-3) [facility] GLUCOSE (AUTOMATED)2022-01-06 22:44:50 Test Item Value Reference Range Interpretation Comments POCT GLU (test code = 7671263449) 198 mg/dL 70-110 H Lab Interpretation (test code = Abnormal 35436-3) [facility] GLUCOSE (AUTOMATED)2022-01-06 17:41:24 Test Item Value Reference Range Interpretation Comments POCT GLU (test code = 1044278965) 172 mg/dL 70-110 H Lab Interpretation (test code = Abnormal 06424-1) [facility] GLUCOSE (AUTOMATED)2022-01-06 13:48:08 Test Item Value Reference Range Interpretation Comments POCT GLU (test code = 9685080423) 175 mg/dL 70-110 H Lab Interpretation (test code = Abnormal 75964-9) [facility] METABOLIC PANEL (NA, K, CL, CO2, GLUCOSE, BUN, CREATININE, CA)2022-01-06 09:39:37 Test Item Value Reference Range Interpretation Comments NA (test code = 139 mmol/L 135-145 2848377774) K (test code = 3.6 mmol/L 3.5-5.0 7463681171) CL (test code = 104 mmol/L 98-108 1968260890) CO2 TOTAL (test code = 30 mmol/L 23-31 5605833516) AGAP (test code = 2-16 1295595487) BUN (test code = 15 mg/dL 7-23 9865289769) GLUCOSE (test code = 164 mg/dL 70-110 H 3583677582) CREATININE (test code = 0.83 mg/dL 0.50-1.04 1964664115) CALCIUM (test code = 7.9 mg/dL 8.6-10.6 L 1811636103) eGFR (test code = mL/min/1.73m2 6442353364) JENNIFFER (test code = JENNIFFER) Association of Glomerular Filtration Rate (GFR) and Staging of Kidney Disease* + --+ --+ ------+| GFR (mL/min/1.73 m2) ?| With Kidney Damage ?| ?Without Kidney Damage+ --------+ --------+ +| ?>90 ?| ?Stage one ?| ? Normal ?+ ---+ ---+ -------+| ?60-89 ?| ?Stage two ?| ? Decreased GFR ? + --+ --+ ------+| ?30-59 ?| ?Stage three ?| ? Stage three ? + --+ --+ ------+| ?15-29 ?| ?Stage four ? | ? Stage four ?+ ---+ ---+ -------+| ?<15 (or dialysis) ? ?| ?Stage five ? | ? Stage five ?+ ---+ ---+ -------+ *Each stage assumes the associated GFR level has been in effect for at least three months. ?Stages 1 to 5, with or without kidney disease, indicate chronic kidney disease. Notes: Determination of stages one and two (with eGFR >59mL/min/1.73 m2) requires estimation of kidney damage for at least three months as defined by structural or functional abnormalities of the kidney, manifested by either:Pathological abnormalities or Markers of kidney damage (including abnormalities in the composition of the blood or urine or abnormalities in imaging tests). Lab Interpretation Abnormal (test code = 84783-6) [facility]37 Test Item Value Reference Range Interpretation Comments MAGNESIUM (test code = 0414951531) 2.5 mg/dL 1.7-2.4 H Lab Interpretation (test code = Abnormal 17339-9) [facility] Test Item Value Reference Range Interpretation Comments PHOSPHORUS (test code = 0608461826) 3.8 mg/dL 2.5-5.0 Lab Interpretation (test code = Normal 58971-2) [facility] WITH [id number] 09:29:28 Test Item Value Reference Range Interpretation Comments WBC (test code = See_Comment [Automated 6690-2) message] The sy stem which generated this result transmitted reference range : 4.30 - 11.10 10*3/?L. The reference range was not used to interpret this result as normal/abnormal . RBC (test code = See_Comment L [Automated 789-8) message] The sy stem which generated this result transmitted reference range : 3.93 - 5.25 10*6/?L. The reference range was not used to interpret this result as normal/abnormal . HGB (test code = 9.3 g/dL 11.6-15.0 L 718-7) HCT (test code = 29.4 % 35.7-45.2 L 4544-3) MCV (test code = 88.8 fL 80.6-95.5 787-2) MCH (test code = 28.1 pg 25.9-32.8 785-6) MCHC (test code = 31.6 g/dL 31.6-35.1 786-4) RDW-SD (test code = 46.7 fL 39.0-49.9 47859-3) RDW-CV (test code = 14.5 % 12.0-15.5 788-0) PLT (test code = See_Comment [Automated 777-3) message] The sy stem which generated this result transmitted reference range : 166 - 358 10*3/ ?L. The reference r josselyn was not used to interpret this result as normal/abnormal . MPV (test code = 8.9 fL 9.5-12.9 L 58559-9) NRBC/100 WBC (test See_Comment [Automat ed code = 0697072431) message] The system which generated this result transmitted reference range : 0.0 - 10.0 /100 WBCs. The refer ence range was not u sed to interpret th is result as normal/abnormal . NRBC x10^3 (test code <0.01 See_Comment [Auto mated = 4367714356) message] The s ystem which generated this result transmitted reference range : 10*3/?L. The reference range was not used to interpret this result as normal/abnormal . GRAN MAT (NEUT) % 74.7 % (test code = 770-8) IMM GRAN % (test code 0.30 % = 7682855849) LYMPH % (test code = 15.5 % 736-9) MONO % (test code = 5.5 % 5905-5) EOS % (test code = 3.3 % 713-8) BASO % (test code = 0.7 % 706-2) GRAN MAT x10^3(ANC) 4.34 10*3/uL 1.88-7.09 (test code = 7658394517) IMM GRAN x10^3 (test <0.03 0.00-0.06 code = 5193499577) LYMPH x10^3 (test code 0.90 10*3/uL 1.32-3.29 L = 731-0) MONO x10^3 (test code 0.32 10*3/uL 0.33-0.92 L = 742-7) EOS x10^3 (test code = 0.19 10*3/uL 0.03-0.39 711-2) BASO x10^3 (test code 0.04 10*3/uL 0.01-0.07 = 704-7) Lab Interpretation Abnormal (test code = 01129-2) [facility] GLUCOSE (AUTOMATED)2022-01-05 20:46:31 Test Item Value Reference Range Interpretation Comments POCT GLU (test code = 0731998440) 175 mg/dL 70-110 H Lab Interpretation (test code = Abnormal 66487-2) [facility] GLUCOSE (AUTOMATED)2022-01-05 17:13:26 Test Item Value Reference Range Interpretation Comments POCT GLU (test code = 9070432203) 233 mg/dL 70-110 H Lab Interpretation (test code = Abnormal 33753-3) [facility] GLUCOSE (AUTOMATED)2022-01-05 13:24:19 Test Item Value Reference Range Interpretation Comments POCT GLU (test code = 1764048335) 208 mg/dL 70-110 H Lab Interpretation (test code = Abnormal 86637-8) [facility] (NA, K, CL, CO2, GLUCOSE, BUN, CREATININE, CA)2022-01-05 09:23:42 Test Item Value Reference Range Interpretation Comments NA (test code = 139 mmol/L 135-145 3229327251) K (test code = 3.7 mmol/L 3.5-5.0 2114666509) CL (test code = 102 mmol/L 98-108 6497029920) CO2 TOTAL (test code = 31 mmol/L 23-31 5639949573) AGAP (test code = 2-16 2998236719) BUN (test code = 19 mg/dL 7-23 5397233585) GLUCOSE (test code = 166 mg/dL 70-110 H 3938668316) CREATININE (test code = 0.85 mg/dL 0.50-1.04 1308247231) CALCIUM (test code = 8.1 mg/dL 8.6-10.6 L 0134140039) eGFR (test code = mL/min/1.73m2 5383926595) JENNIFFER (test code = JENNIFFER) Association of Glomerular Filtration Rate (GFR) and Staging of Kidney Disease* + --+ --+ ------+| GFR (mL/min/1.73 m2) ?| With Kidney Damage ?| ?Without Kidney Damage+ --------+ --------+ +| ?>90 ?| ?Stage one ?| ? Normal ?+ ---+ ---+ -------+| ?60-89 ?| ?Stage two ?| ? Decreased GFR ? + --+ --+ ------+| ?30-59 ?| ?Stage three ?| ? Stage three ? + --+ --+ ------+| ?15-29 ?| ?Stage four ? | ? Stage four ?+ ---+ ---+ -------+| ?<15 (or dialysis) ? ?| ?Stage five ? | ? Stage five ?+ ---+ ---+ -------+ *Each stage assumes the associated GFR level has been in effect for at least three months. ?Stages 1 to 5, with or without kidney disease, indicate chronic kidney disease. Notes: Determination of stages one and two (with eGFR >59mL/min/1.73 m2) requires estimation of kidney damage for at least three months as defined by structural or functional abnormalities of the kidney, manifested by either:Pathological abnormalities or Markers of kidney damage (including abnormalities in the composition of the blood or urine or abnormalities in imaging tests). Lab Interpretation Abnormal (test code = 93823-3) [facility] Test Item Value Reference Range Interpretation Comments MAGNESIUM (test code = 0900802341) 2.3 mg/dL 1.7-2.4 Lab Interpretation (test code = Normal 09539-5) [facility]42 Test Item Value Reference Range Interpretation Comments PHOSPHORUS (test code = 5784150233) 3.5 mg/dL 2.5-5.0 Lab Interpretation (test code = Normal 89949-5) [facility] [id number] 09:15:04 Test Item Value Reference Range Interpretation Comments WBC (test code = See_Comment [Automated 6690-2) message] The sy stem which generated this result transmitted reference range : 4.30 - 11.10 10*3/?L. The reference range was not used to interpret this result as normal/abnormal . RBC (test code = See_Comment L [Automated 789-8) message] The sy stem which generated this result transmitted reference range : 3.93 - 5.25 10*6/?L. The reference range was not used to interpret this result as normal/abnormal . HGB (test code = 9.1 g/dL 11.6-15.0 L 718-7) HCT (test code = 29.1 % 35.7-45.2 L 4544-3) MCV (test code = 89.0 fL 80.6-95.5 787-2) MCH (test code = 27.8 pg 25.9-32.8 785-6) MCHC (test code = 31.3 g/dL 31.6-35.1 L 786-4) RDW-SD (test code = 46.4 fL 39.0-49.9 55035-6) RDW-CV (test code = 14.4 % 12.0-15.5 788-0) PLT (test code = See_Comment [Automated 777-3) message] The sy stem which generated this result transmitted reference range : 166 - 358 10*3/ ?L. The reference r josselyn was not used to interpret this result as normal/abnormal . MPV (test code = 8.9 fL 9.5-12.9 L 01675-3) NRBC/100 WBC (test See_Comment [Automat ed code = 0543529162) message] The system which generated this result transmitted reference range : 0.0 - 10.0 /100 WBCs. The refer ence range was not u sed to interpret th is result as normal/abnormal . NRBC x10^3 (test code <0.01 See_Comment [Auto mated = 3196777262) message] The s ystem which generated this result transmitted reference range : 10*3/?L. The reference range was not used to interpret this result as normal/abnormal . GRAN MAT (NEUT) % 71.1 % (test code = 770-8) IMM GRAN % (test code 0.30 % = 1145649983) LYMPH % (test code = 17.7 % 736-9) MONO % (test code = 7.2 % 5905-5) EOS % (test code = 2.6 % 713-8) BASO % (test code = 1.1 % 706-2) GRAN MAT x10^3(ANC) 4.43 10*3/uL 1.88-7.09 (test code = 8626643944) IMM GRAN x10^3 (test <0.03 0.00-0.06 code = 4750332611) LYMPH x10^3 (test code 1.10 10*3/uL 1.32-3.29 L = 731-0) MONO x10^3 (test code 0.45 10*3/uL 0.33-0.92 = 742-7) EOS x10^3 (test code = 0.16 10*3/uL 0.03-0.39 711-2) BASO x10^3 (test code 0.07 10*3/uL 0.01-0.07 = 704-7) Lab Interpretation Abnormal (test code = 29051-2) [facility] GLUCOSE (AUTOMATED)2022-01-05 05:12:00 Test Item Value Reference Range Interpretation Comments POCT GLU (test code = 5124615181) 178 mg/dL 70-110 H Lab Interpretation (test code = Abnormal 78668-4) [facility] GLUCOSE (AUTOMATED)2022-01-04 22:12:41 Test Item Value Reference Range Interpretation Comments POCT GLU (test code = 1144843666) 154 mg/dL 70-110 H Lab Interpretation (test code = Abnormal 18193-0) [facility] GLUCOSE (AUTOMATED)2022-01-04 17:15:55 Test Item Value Reference Range Interpretation Comments POCT GLU (test code = 5169136775) 204 mg/dL 70-110 H Lab Interpretation (test code = Abnormal 44776-1) [id number] 13:56:02 Test Item Value Reference Range Interpretation Comments SPUTUM CULTURE 1+ Respiratory iveth: (test code = 622-1) Commensal upper respiratory microorganisms only. Gram stain (test No Epithelial cells code = 664-3) JENNIFFER (test code = Bacterial pathogens JENNIFFER) associated with lower respiratory infections were not identified, which include Pseudomonas aeruginosa and Staphylococcus aureus (MRSA or MSSA). [facility] Please draw trough at [id number] 11:47:19 Test Item Value Reference Range Interpretation Comments VANCO TROUGH (test code 11.3 ug/mL 10.0-20.0 = 2421901310) JENNIFFER (test code = JENNIFFER) Toxic Range: ?>20 ug/mL 15-20 ug/mL is recommended for severe infection or when Vancomycin TORITO is greater than or equal to 2. Lab Interpretation (test Normal code = 27263-7) [facility] GLUCOSE (AUTOMATED)2022-01-04 11:19:57 Test Item Value Reference Range Interpretation Comments POCT GLU (test code = 3497777891) 189 mg/dL 70-110 H Lab Interpretation (test code = Abnormal 06757-9) [facility] (NA, K, CL, CO2, GLUCOSE, BUN, CREATININE, CA)2022-01-04 11:17:16 Test Item Value Reference Range Interpretation Comments NA (test code = 140 mmol/L 135-145 9380289557) K (test code = 3.3 mmol/L 3.5-5.0 L 2343890219) CL (test code = 99 mmol/L 98-108 8080821328) CO2 TOTAL (test code = 35 mmol/L 23-31 H 4418515810) AGAP (test code = 2-16 2235306352) BUN (test code = 18 mg/dL 7-23 0374228132) GLUCOSE (test code = 172 mg/dL 70-110 H 6040486946) CREATININE (test code = 0.89 mg/dL 0.50-1.04 4410367802) CALCIUM (test code = 8.2 mg/dL 8.6-10.6 L 6143659919) eGFR (test code = mL/min/1.73m2 9601089372) JENNIFFER (test code = JENNIFFER) Association of Glomerular Filtration Rate (GFR) and Staging of Kidney Disease* + --+ --+ ------+| GFR (mL/min/1.73 m2) ?| With Kidney Damage ?| ?Without Kidney Damage+ --------+ --------+ +| ?>90 ?| ?Stage one ?| ? Normal ?+ ---+ ---+ -------+| ?60-89 ?| ?Stage two ?| ? Decreased GFR ? + --+ --+ ------+| ?30-59 ?| ?Stage three ?| ? Stage three ? + --+ --+ ------+| ?15-29 ?| ?Stage four ? | ? Stage four ?+ ---+ ---+ -------+| ?<15 (or dialysis) ? ?| ?Stage five ? | ? Stage five ?+ ---+ ---+ -------+ *Each stage assumes the associated GFR level has been in effect for at least three months. ?Stages 1 to 5, with or without kidney disease, indicate chronic kidney disease. Notes: Determination of stages one and two (with eGFR >59mL/min/1.73 m2) requires estimation of kidney damage for at least three months as defined by structural or functional abnormalities of the kidney, manifested by either:Pathological abnormalities or Markers of kidney damage (including abnormalities in the composition of the blood or urine or abnormalities in imaging tests). Lab Interpretation Abnormal (test code = 62815-2) [facility]16 Test Item Value Reference Range Interpretation Comments MAGNESIUM (test code = 2755999194) 2.3 mg/dL 1.7-2.4 Lab Interpretation (test code = Normal 19862-1) [facility]:17:16 Test Item Value Reference Range Interpretation Comments PHOSPHORUS (test code = 3716842580) 2.7 mg/dL 2.5-5.0 Lab Interpretation (test code = Normal 97883-4) [facility] WITH [id number] 11:03:17 Test Item Value Reference Range Interpretation Comments WBC (test code = See_Comment [Automated 6690-2) message] The sy stem which generated this result transmitted reference range : 4.30 - 11.10 10*3/?L. The reference range was not used to interpret this result as normal/abnormal . RBC (test code = See_Comment L [Automated 789-8) message] The sy stem which generated this result transmitted reference range : 3.93 - 5.25 10*6/?L. The reference range was not used to interpret this result as normal/abnormal . HGB (test code = 9.1 g/dL 11.6-15.0 L 718-7) HCT (test code = 28.5 % 35.7-45.2 L 4544-3) MCV (test code = 87.4 fL 80.6-95.5 787-2) MCH (test code = 27.9 pg 25.9-32.8 785-6) MCHC (test code = 31.9 g/dL 31.6-35.1 786-4) RDW-SD (test code = 46.0 fL 39.0-49.9 54150-2) RDW-CV (test code = 14.4 % 12.0-15.5 788-0) PLT (test code = See_Comment [Automated 777-3) message] The sy stem which generated this result transmitted reference range : 166 - 358 10*3/ ?L. The reference r josselyn was not used to interpret this result as normal/abnormal . MPV (test code = 9.1 fL 9.5-12.9 L 73453-4) NRBC/100 WBC (test See_Comment [Automat ed code = 8110085527) message] The system which generated this result transmitted reference range : 0.0 - 10.0 /100 WBCs. The refer ence range was not u sed to interpret th is result as normal/abnormal . NRBC x10^3 (test code <0.01 See_Comment [Auto mated = 3293848189) message] The s ystem which generated this result transmitted reference range : 10*3/?L. The reference range was not used to interpret this result as normal/abnormal . GRAN MAT (NEUT) % 78.8 % (test code = 770-8) IMM GRAN % (test code 0.50 % = 0056905470) LYMPH % (test code = 11.8 % 736-9) MONO % (test code = 6.8 % 5905-5) EOS % (test code = 1.4 % 713-8) BASO % (test code = 0.7 % 706-2) GRAN MAT x10^3(ANC) 6.65 10*3/uL 1.88-7.09 (test code = 8882131790) IMM GRAN x10^3 (test 0.04 10*3/uL 0.00-0.06 code = 2516234862) LYMPH x10^3 (test code 1.00 10*3/uL 1.32-3.29 L = 731-0) MONO x10^3 (test code 0.57 10*3/uL 0.33-0.92 = 742-7) EOS x10^3 (test code = 0.12 10*3/uL 0.03-0.39 711-2) BASO x10^3 (test code 0.06 10*3/uL 0.01-0.07 = 704-7) Lab Interpretation Abnormal (test code = 82553-2) [facility] GLUCOSE (AUTOMATED)2022-01-04 06:29:40 Test Item Value Reference Range Interpretation Comments POCT GLU (test code = 4777784907) 211 mg/dL 70-110 H Lab Interpretation (test code = Abnormal 00502-3) [facility] GLUCOSE (AUTOMATED)2022-01-03 21:23:29 Test Item Value Reference Range Interpretation Comments POCT GLU (test code = 255 mg/dL 70-110 H Notifi ed Provider [id number]) Lab Interpretation (test Abnormal code = 69838-1) [facility] GLUCOSE (AUTOMATED)2022-01-03 16:51:46 Test Item Value Reference Range Interpretation Comments POCT GLU (test code = 332 mg/dL 70-110 H Notifi ed Provider [id number]) Lab Interpretation (test Abnormal code = 67572-2) [facility] 13:01:05 Test Item Value Reference Range Interpretation Comments POCT GLU (test code = 4532581616) 332 mg/dL 70-110 H Lab Interpretation (test code = Abnormal 61964-3) [facility] + Lactic [id number] 10:21:11 Test Item Value Reference Range Interpretation Comments PH (test code = 2) 7.35-7.45 PCO2 (test code = See_Comment H [Automate d 1786228560) message] The sy stem which generated this result transmitted reference range : 35 - 45 mmHg. The reference range was not used to interpret this result as normal/abnormal . PO2 (test code = See_Comment [Automated 1379334316) message] The sy stem which generated this result transmitted reference range : 80 - 100 mmHg. The reference range was not used to interpret this result as normal/abnormal . HCO3 (test code = See_Comment H [Automate d 0440834251) message] The sy stem which generated this result transmitted reference range : 22 - 26 mEq/L. The reference range was not used to interpret this result as normal/abnormal . BE (test code = See_Comment H [Automated 7206721174) message] The sy stem which generated this result transmitted reference range : -3.0 - 3.0 mEq/ L. The reference r josselyn was not used to interpret this result as normal/abnormal . THB (test code = 10.1 g/dL 12.0-16.0 L 8044802642) %O2HB (test code = 95.5 % 94.0-99.0 1196760337) %COHB ART (test code = 0.3 % 0.0-1.5 0349557657) %METHB ART (test code = 0.1 % 0.4-1.5 L 8157366447) VOL%O2 ART (test code = 13.7 % 15.0-23.0 L 9225728077) NA (test code = 138 mmol/L 135-145 1346328754) K+ (test code = 4.1 mmol/L 3.5-5.0 0667378714) AC CA IONZ (test code = 4.50 mg/dL 4.50-5.30 4036057744) GLUCOSE (test code = 325 mg/dL 70-110 H 6602268380) LACTIC ACID (test code 1.27 mmol/L 0.50-2.20 = 1356988787) Lab Interpretation Abnormal (test code = 38783-7) [facility] 10:18:30 Test Item Value Reference Range Interpretation Comments POCT GLU (test code = 5965939670) 338 mg/dL 70-110 H Lab Interpretation (test code = Abnormal 80729-8) [facility] METABOLIC PANEL (NA, K, CL, CO2, GLUCOSE, BUN, CREATININE, CA)2022-01-03 09:15:37 Test Item Value Reference Range Interpretation Comments NA (test code = 141 mmol/L 135-145 7502094468) K (test code = 4.3 mmol/L 3.5-5.0 9997627962) CL (test code = 103 mmol/L 98-108 3751802856) CO2 TOTAL (test code = 34 mmol/L 23-31 H 4705538273) AGAP (test code = 2-16 7542356191) BUN (test code = 19 mg/dL 7-23 0302387958) GLUCOSE (test code = 295 mg/dL 70-110 H 7733463532) CREATININE (test code = 0.80 mg/dL 0.50-1.04 3388037418) CALCIUM (test code = 7.9 mg/dL 8.6-10.6 L 7651123394) eGFR (test code = mL/min/1.73m2 0681423558) JENNIFFER (test code = JENNIFFER) Association of Glomerular Filtration Rate (GFR) and Staging of Kidney Disease* + --+ --+ ------+| GFR (mL/min/1.73 m2) ?| With Kidney Damage ?| ?Without Kidney Damage+ --------+ --------+ +| ?>90 ?| ?Stage one ?| ? Normal ?+ ---+ ---+ -------+| ?60-89 ?| ?Stage two ?| ? Decreased GFR ? + --+ --+ ------+| ?30-59 ?| ?Stage three ?| ? Stage three ? + --+ --+ ------+| ?15-29 ?| ?Stage four ? | ? Stage four ?+ ---+ ---+ -------+| ?<15 (or dialysis) ? ?| ?Stage five ? | ? Stage five ?+ ---+ ---+ -------+ *Each stage assumes the associated GFR level has been in effect for at least three months. ?Stages 1 to 5, with or without kidney disease, indicate chronic kidney disease. Notes: Determination of stages one and two (with eGFR >59mL/min/1.73 m2) requires estimation of kidney damage for at least three months as defined by structural or functional abnormalities of the kidney, manifested by either:Pathological abnormalities or Markers of kidney damage (including abnormalities in the composition of the blood or urine or abnormalities in imaging tests). Lab Interpretation Abnormal (test code = 03162-0) [facility]12 Test Item Value Reference Range Interpretation Comments MAGNESIUM (test code = 7836654257) 2.3 mg/dL 1.7-2.4 Lab Interpretation (test code = Normal 70629-3) [facility] WITH [id number] 09:02:53 Test Item Value Reference Range Interpretation Comments WBC (test code = See_Comment [Automated 8290-2) message] The sy stem which generated this result transmitted reference range : 4.30 - 11.10 10*3/?L. The reference range was not used to interpret this result as normal/abnormal . RBC (test code = See_Comment L [Automated 895-8) message] The sy stem which generated this result transmitted reference range : 3.93 - 5.25 10*6/?L. The reference range was not used to interpret this result as normal/abnormal . HGB (test code = 9.3 g/dL 11.6-15.0 L 718-7) HCT (test code = 29.1 % 35.7-45.2 L 4544-3) MCV (test code = 89.5 fL 80.6-95.5 787-2) MCH (test code = 28.6 pg 25.9-32.8 785-6) MCHC (test code = 32.0 g/dL 31.6-35.1 786-4) RDW-SD (test code = 46.8 fL 39.0-49.9 47790-2) RDW-CV (test code = 14.3 % 12.0-15.5 788-0) PLT (test code = See_Comment [Automated 777-3) message] The sy stem which generated this result transmitted reference range : 166 - 358 10*3/ ?L. The reference r josselyn was not used to interpret this result as normal/abnormal . MPV (test code = 9.1 fL 9.5-12.9 L 01478-4) NRBC/100 WBC (test See_Comment [Automat ed code = 3807896507) message] The system which generated this result transmitted reference range : 0.0 - 10.0 /100 WBCs. The refer ence range was not u sed to interpret th is result as normal/abnormal . NRBC x10^3 (test code <0.01 See_Comment [Auto mated = 1333652922) message] The s ystem which generated this result transmitted reference range : 10*3/?L. The reference range was not used to interpret this result as normal/abnormal . GRAN MAT (NEUT) % 86.9 % (test code = 770-8) IMM GRAN % (test code 0.50 % = 5216508670) LYMPH % (test code = 6.5 % 736-9) MONO % (test code = 5.2 % 5905-5) EOS % (test code = 0.6 % 713-8) BASO % (test code = 0.3 % 706-2) GRAN MAT x10^3(ANC) 8.30 10*3/uL 1.88-7.09 H (test code = 9154226832) IMM GRAN x10^3 (test 0.05 10*3/uL 0.00-0.06 code = 2661312548) LYMPH x10^3 (test code 0.62 10*3/uL 1.32-3.29 L = 731-0) MONO x10^3 (test code 0.50 10*3/uL 0.33-0.92 = 742-7) EOS x10^3 (test code = 0.06 10*3/uL 0.03-0.39 711-2) BASO x10^3 (test code 0.03 10*3/uL 0.01-0.07 = 704-7) Lab Interpretation Abnormal (test code = 84146-2) [facility] GLUCOSE (AUTOMATED)2022-01-03 04:48:55 Test Item Value Reference Range Interpretation Comments POCT GLU (test code = 5770004889) 258 mg/dL 70-110 H Lab Interpretation (test code = Abnormal 03734-4) [facility] GLUCOSE (AUTOMATED)2022-01-02 22:17:43 Test Item Value Reference Range Interpretation Comments POCT GLU (test code = 274 mg/dL 70-110 H Notifi ed Provider [id number]) Lab Interpretation (test Abnormal code = 55931-2) [facility] GLUCOSE (AUTOMATED)2022-01-02 16:29:06 Test Item Value Reference Range Interpretation Comments POCT GLU (test code = 321 mg/dL 70-110 H Notifi ed Provider [id number]) Lab Interpretation (test Abnormal code = 52481-8) [facility] 15:12:15 Test Item Value Reference Range Interpretation Comments HGB A1C (test code = 10.4 % 4.0-5.7 H 4548-4) JENNIFFER (test code = JENNIFFER) Reference RangesNormal: <5.7%Prediabetes: 5.7 - 6.4%Diabetes: > 6.5% Lab Interpretation (test Abnormal code = 28262-1) [facility] + Lactic [id number] 12:41:39 Test Item Value Reference Range Interpretation Comments PH (test code = 2) 7.35-7.45 L PCO2 (test code = See_Comment H [Automate d 0719416129) message] The sy stem which generated this result transmitted reference range : 35 - 45 mmHg. The reference range was not used to interpret this result as normal/abnormal . PO2 (test code = See_Comment H [Automated 3077139822) message] The sy stem which generated this result transmitted reference range : 80 - 100 mmHg. The reference range was not used to interpret this result as normal/abnormal . HCO3 (test code = See_Comment [Automate d 8361300250) message] The sy stem which generated this result transmitted reference range : 22 - 26 mEq/L. The reference range was not used to interpret this result as normal/abnormal . BE (test code = See_Comment [Automated 6375032563) message] The sy stem which generated this result transmitted reference range : -3.0 - 3.0 mEq/ L. The reference r josselyn was not used to interpret this result as normal/abnormal . THB (test code = 10.0 g/dL 12.0-16.0 L 7371130820) %O2HB (test code = 97.7 % 94.0-99.0 1385541083) %COHB ART (test code = 0.3 % 0.0-1.5 3497563430) %METHB ART (test code = 0.2 % 0.4-1.5 L 1069167846) VOL%O2 ART (test code = 14.0 % 15.0-23.0 L 5840486581) NA (test code = 137 mmol/L 135-145 0109766969) K+ (test code = 5.2 mmol/L 3.5-5.0 H 1944482025) AC CA IONZ (test code = 4.60 mg/dL 4.50-5.30 2274873442) GLUCOSE (test code = 306 mg/dL 70-110 H 6539170921) LACTIC ACID (test code 0.77 mmol/L 0.50-2.20 = 2055122330) Lab Interpretation Abnormal (test code = 27282-9) [facility] 12:28:29 Test Item Value Reference Range Interpretation Comments POCT GLU (test code = 362 mg/dL 70-110 H Notifi ed Provider [id number]) Lab Interpretation (test Abnormal code = 64211-5) [facility] Metabolic Panel (NA, K, CL, CO2, Glucose, BUN, Creatinine, CA)2022-01-02 11:02:42 Test Item Value Reference Range Interpretation Comments NA (test code = 138 mmol/L 135-145 1647589786) K (test code = 5.3 mmol/L 3.5-5.0 H 6460092745) CL (test code = 102 mmol/L 98-108 1088335103) CO2 TOTAL (test code = 29 mmol/L 23-31 6778796487) AGAP (test code = 2-16 1930227289) BUN (test code = 17 mg/dL 7-23 0199350460) GLUCOSE (test code = 343 mg/dL 70-110 H 2429031002) CREATININE (test code = 0.81 mg/dL 0.50-1.04 5524572344) CALCIUM (test code = 8.1 mg/dL 8.6-10.6 L 0590709014) eGFR (test code = mL/min/1.73m2 2397495970) JENNIFFER (test code = JENNIFFER) Association of Glomerular Filtration Rate (GFR) and Staging of Kidney Disease* + --+ --+ ------+| GFR (mL/min/1.73 m2) ?| With Kidney Damage ?| ?Without Kidney Damage+ --------+ --------+ +| ?>90 ?| ?Stage one ?| ? Normal ?+ ---+ ---+ -------+| ?60-89 ?| ?Stage two ?| ? Decreased GFR ? + --+ --+ ------+| ?30-59 ?| ?Stage three ?| ? Stage three ? + --+ --+ ------+| ?15-29 ?| ?Stage four ? | ? Stage four ?+ ---+ ---+ -------+| ?<15 (or dialysis) ? ?| ?Stage five ? | ? Stage five ?+ ---+ ---+ -------+ *Each stage assumes the associated GFR level has been in effect for at least three months. ?Stages 1 to 5, with or without kidney disease, indicate chronic kidney disease. Notes: Determination of stages one and two (with eGFR >59mL/min/1.73 m2) requires estimation of kidney damage for at least three months as defined by structural or functional abnormalities of the kidney, manifested by either:Pathological abnormalities or Markers of kidney damage (including abnormalities in the composition of the blood or urine or abnormalities in imaging tests). Lab Interpretation Abnormal (test code = 23417-9) [facility] with [id number] 10:52:23 Test Item Value Reference Range Interpretation Comments WBC (test code = See_Comment H [Automated 6690-2) message] The system which generated this result transmit alden reference range : 4.30 - 11.10 10*3/?L. The reference range was not used to interpret this result as normal/abnormal . RBC (test code = See_Comment L [Automated 789-8) message] The system which generated this result transmit alden reference range : 3.93 - 5.25 10*6/?L. The reference range was not used to interpret this result as normal/abnormal . HGB (test code = 10.2 g/dL 11.6-15.0 L 718-7) HCT (test code = 33.0 % 35.7-45.2 L 4544-3) MCV (test code = 91.2 fL 80.6-95.5 787-2) MCH (test code = 28.2 pg 25.9-32.8 785-6) MCHC (test code = 30.9 g/dL 31.6-35.1 L 786-4) RDW-SD (test code = 49.3 fL 39.0-49.9 49159-7) RDW-CV (test code = 14.7 % 12.0-15.5 788-0) PLT (test code = See_Comment [Automated 777-3) message] The system which generated this result transmit alden reference range : 166 - 358 10*3/ ?L. The reference range was not u sed to interpret th is result as normal/abnormal . MPV (test code = 9.8 fL 9.5-12.9 55974-4) NRBC/100 WBC (test See_Comment [Automat ed code = 3220887014) message] The system which generated this result transmit alden reference range : 0.0 - 10.0 /100 WBCs. The reference range was not used to interpret this result as normal/abnormal . NRBC x10^3 (test code <0.01 See_Comment [Auto mated = 3223023985) message] The system which generated this result transmit alden reference range : 10*3/?L. The reference range was not used to interpret this result as normal/abnormal . GRAN MAT (NEUT) % 90.3 % (test code = 770-8) IMM GRAN % (test code 1.00 % = 1338609706) LYMPH % (test code = 4.0 % 736-9) MONO % (test code = 4.0 % 5905-5) EOS % (test code = 0.3 % 713-8) BASO % (test code = 0.4 % 706-2) GRAN MAT x10^3(ANC) 13.28 10*3/uL 1.88-7.09 H (test code = 8831867702) IMM GRAN x10^3 (test 0.15 10*3/uL 0.00-0.06 H code = 9249822189) LYMPH x10^3 (test code 0.59 10*3/uL 1.32-3.29 L = 731-0) MONO x10^3 (test code 0.59 10*3/uL 0.33-0.92 = 742-7) EOS x10^3 (test code = 0.04 10*3/uL 0.03-0.39 711-2) BASO x10^3 (test code 0.06 10*3/uL 0.01-0.07 = 704-7) Lab Interpretation Abnormal (test code = 06736-0) [facility]:20:11 Test Item Value Reference Range Interpretation Comments PH (test code = 2) 7.35-7.45 LL PCO2 (test code = See_Comment H [Automate d message] 8102713279) The system [employer] generated this result transmit alden reference range : 35 - 45 mmHg. The reference range was not used to interpret this result as normal/abnormal . PO2 (test code = See_Comment H [Automated message] 3276977874) The system [employer] generated this result transmit alden reference range : 80 - 100 mmHg. The reference range was not used to interpret this result as normal/abnormal . HCO3 (test code = See_Comment [Automate d message] 4550762889) The system [employer] generated this result transmit alden reference range : 22 - 26 mEq/L. The reference range was not used to interpret this result as normal/abnormal . BE (test code = See_Comment L [Automated message] 8843184396) The system [employer] generated this result transmit alden reference range : -3.0 - 3.0 mEq/ L. The reference r josselyn was not used to interpret this result as normal/abnormal . THB (test code = 10.9 g/dL 12.0-16.0 L 0432814799) %O2HB (test code = 97.4 % 94.0-99.0 6212710355) %COHB ART (test code = 0.3 % 0.0-1.5 1262767022) %METHB ART (test code = 0.1 % 0.4-1.5 L 8256579183) VOL%O2 ART (test code = 15.1 % 15.0-23.0 4958246702) NA (test code = 136 mmol/L 135-145 7194982891) K+ (test code = 5.5 mmol/L 3.5-5.0 H 0883945281) AC CA IONZ (test code = 4.70 mg/dL 4.50-5.30 2974919341) GLUCOSE (test code = 348 mg/dL 70-110 H 7587334046) Lab Interpretation Abnormal (test code = 10513-0) [facility] [id number] 03:01:55 Test Item Value Reference Interpretation Comments Range TROPONIN I (test 0.001 ng/mL See_Comment [Automated code = 2301775286) message] The system which generated this result transmitted reference range : <=0.034. The reference range was not used to interpret this result as normal/abnormal . JENNIFFER (test code = Reference (Normal) JENNIFFER) Range (defined by the 99th percentile reference limit): <= 0.034 ng/mL Note: Cardiac troponin begins to rise 3-4 hours after the onset of ischemia. Repeat in 4-6 hours if the sample was drawn within 3-4 hours of the onset of the symptom and found normal. Diagnosis of myocardial injury is made with acute changes in cTn concentrations with at least one serial sample above the 99th percentile upper reference limit (URL), taken together with the patient's clinical presentation. Biotin has been reported to cause a negative bias, interpret results relative to patient's use of biotin. Lab Interpretation Normal (test code = 03316-1) [id number] 02:58:58 Test Item Value Reference Range Interpretation Comments NT-proBNP (test code 183 pg/mL See_Comment H [Autom ated = 8084679731) message] The system which generated this result transmitted reference range : <=125. The reference range was not used to interpret this result as normal/abnormal . JENNIFFER (test code = JENNIFFER) Biotin has been reported to cause a negative bias, interpret results relative to patient's use of biotin. Lab Interpretation Abnormal (test code = 27252-8) [facility]. METABOLIC PANEL ([id number])2022-01-02 02:50:56 Test Item Value Reference Range Interpretation Comments NA (test code = 137 mmol/L 135-145 7841651876) K (test code = 4.6 mmol/L 3.5-5.0 6671897589) CL (test code = 103 mmol/L 98-108 2331866991) CO2 TOTAL (test code = 26 mmol/L 23-31 8037007492) AGAP (test code = 2-16 7031458200) BUN (test code = 20 mg/dL 7-23 3914944065) GLUCOSE (test code = 310 mg/dL 70-110 H 2858477727) CREATININE (test code = 1.14 mg/dL 0.50-1.04 H 4261487844) TOTAL BILI (test code = 0.3 mg/dL 0.1-1.0 5508161454) CALCIUM (test code = 8.1 mg/dL 8.6-10.6 L 6539532880) T PROTEIN (test code = 6.6 g/dL 6.3-8.2 7311175852) ALBUMIN (test code = 3.8 g/dL 3.5-5.0 2208032108) ALK PHOS (test code = 143 U/L 34-122 H 1591294118) ALTv (test code = 46 U/L 5-35 H 1742-6) AST(SGOT) (test code = 81 U/L 13-40 H 1347436448) eGFR (test code = mL/min/1.73m2 5225783237) JENNIFFER (test code = JENNIFFER) Association of Glomerular Filtration Rate (GFR) and Staging of Kidney Disease* + --+ --+ ------+| GFR (mL/min/1.73 m2) ?| With Kidney Damage ?| ?Without Kidney Damage+ --------+ --------+ +| ?>90 ?| ?Stage one ?| ? Normal ?+ ---+ ---+ -------+| ?60-89 ?| ?Stage two ?| ? Decreased GFR ? + --+ --+ ------+| ?30-59 ?| ?Stage three ?| ? Stage three ? + --+ --+ ------+| ?15-29 ?| ?Stage four ? | ? Stage four ?+ ---+ ---+ -------+| ?<15 (or dialysis) ? ?| ?Stage five ? | ? Stage five ?+ ---+ ---+ -------+ *Each stage assumes the associated GFR level has been in effect for at least three months. ?Stages 1 to 5, with or without kidney disease, indicate chronic kidney disease. Notes: Determination of stages one and two (with eGFR >59mL/min/1.73 m2) requires estimation of kidney damage for at least three months as defined by structural or functional abnormalities of the kidney, manifested by either:Pathological abnormalities or Markers of kidney damage (including abnormalities in the composition of the blood or urine or abnormalities in imaging tests). Lab Interpretation Abnormal (test code = 22830-1) [facility] WITH [id number] 02:39:55 Test Item Value Reference Range Interpretation Comments WBC (test code = See_Comment H [Automated 7190-2) message] The system which generated this result transmit laden reference range : 4.30 - 11.10 10*3/?L. The reference range was not used to interpret this result as normal/abnormal . RBC (test code = See_Comment L [Automated 819-8) message] The system which generated this result transmit alden reference range : 3.93 - 5.25 10*6/?L. The reference range was not used to interpret this result as normal/abnormal . HGB (test code = 9.7 g/dL 11.6-15.0 L 718-7) HCT (test code = 31.0 % 35.7-45.2 L 4544-3) MCV (test code = 90.4 fL 80.6-95.5 787-2) MCH (test code = 28.3 pg 25.9-32.8 785-6) MCHC (test code = 31.3 g/dL 31.6-35.1 L 786-4) RDW-SD (test code = 49.2 fL 39.0-49.9 65936-0) RDW-CV (test code = 14.8 % 12.0-15.5 788-0) PLT (test code = See_Comment [Automated 777-3) message] The system which generated this result transmit alden reference range : 166 - 358 10*3/ ?L. The reference range was not u sed to interpret th is result as normal/abnormal . MPV (test code = 10.0 fL 9.5-12.9 41739-0) NRBC/100 WBC (test See_Comment [Automat ed code = 0052141421) message] The system which generated this result transmit alden reference range : 0.0 - 10.0 /100 WBCs. The reference range was not used to interpret this result as normal/abnormal . NRBC x10^3 (test code <0.01 See_Comment [Auto mated = 3000123261) message] The system which generated this result transmit alden reference range : 10*3/?L. The reference range was not used to interpret this result as normal/abnormal . GRAN MAT (NEUT) % 85.4 % (test code = 770-8) IMM GRAN % (test code 0.60 % = 8886723514) LYMPH % (test code = 6.4 % 736-9) MONO % (test code = 5.5 % 5905-5) EOS % (test code = 1.6 % 713-8) BASO % (test code = 0.5 % 706-2) GRAN MAT x10^3(ANC) 10.20 10*3/uL 1.88-7.09 H (test code = 1212509931) IMM GRAN x10^3 (test 0.07 10*3/uL 0.00-0.06 H code = 2233424722) LYMPH x10^3 (test code 0.76 10*3/uL 1.32-3.29 L = 731-0) MONO x10^3 (test code 0.66 10*3/uL 0.33-0.92 = 742-7) EOS x10^3 (test code = 0.19 10*3/uL 0.03-0.39 711-2) BASO x10^3 (test code 0.06 10*3/uL 0.01-0.07 = 704-7) Lab Interpretation Abnormal (test code = 78567-9) [id number]:57[facility]10 Test Item Value Reference Interpretation Comments Range TROPONIN I (test 0.001 ng/mL See_Comment [Automated code = 8189571392) message] The system which generated this result transmitted reference range : <=0.034. The reference range was not used to interpret this result as normal/abnormal . JENNIFFER (test code = Reference (Normal) JENNIFFER) Range (defined by the 99th percentile reference limit): <= 0.034 ng/mL Note: Cardiac troponin begins to rise 3-4 hours after the onset of ischemia. Repeat in 4-6 hours if the sample was drawn within 3-4 hours of the onset of the symptom and found normal. Diagnosis of myocardial injury is made with acute changes in cTn concentrations with at least one serial sample above the 99th percentile upper reference limit (URL), taken together with the patient's clinical presentation. Biotin has been reported to cause a negative bias, interpret results relative to patient's use of biotin. Lab Interpretation Normal (test code = 83826-0) [id number] 04:53:49 Test Item Value Reference Range Interpretation Comments NT-proBNP (test code 79 pg/mL See_Comment [Autom ated = 7230744994) message] The system which generated this result transmitted reference range : <=125. The reference range was not used to interpret this result as normal/abnormal . JENNIFFER (test code = JENNIFFER) Biotin has been reported to cause a negative bias, interpret results relative to patient's use of biotin. Lab Interpretation Normal (test code = 33616-3) [facility]. METABOLIC PANEL ([id number])2021-12-09 04:46:26 Test Item Value Reference Range Interpretation Comments NA (test code = 138 mmol/L 135-145 1076678160) K (test code = 4.4 mmol/L 3.5-5.0 6283726300) CL (test code = 95 mmol/L 98-108 L 5318518682) CO2 TOTAL (test code = 35 mmol/L 23-31 H 3735907206) AGAP (test code = 2-16 5226750693) BUN (test code = 16 mg/dL 7-23 8036977630) GLUCOSE (test code = 276 mg/dL 70-110 H 4757803520) CREATININE (test code = 0.89 mg/dL 0.50-1.04 8683635051) TOTAL BILI (test code = 0.5 mg/dL 0.1-1.0 6657808994) CALCIUM (test code = 9.1 mg/dL 8.6-10.6 8753591575) T PROTEIN (test code = 7.0 g/dL 6.3-8.2 4477692974) ALBUMIN (test code = 4.2 g/dL 3.5-5.0 3830030564) ALK PHOS (test code = 141 U/L 34-122 H 7500036303) ALTv (test code = 65 U/L 5-35 H 1742-6) AST(SGOT) (test code = 81 U/L 13-40 H 2005157439) eGFR (test code = mL/min/1.73m2 1767455084) JENNIFFER (test code = JENNIFFER) Association of Glomerular Filtration Rate (GFR) and Staging of Kidney Disease* + --+ --+ ------+| GFR (mL/min/1.73 m2) ?| With Kidney Damage ?| ?Without Kidney Damage+ --------+ --------+ +| ?>90 ?| ?Stage one ?| ? Normal ?+ ---+ ---+ -------+| ?60-89 ?| ?Stage two ?| ? Decreased GFR ? + --+ --+ ------+| ?30-59 ?| ?Stage three ?| ? Stage three ? + --+ --+ ------+| ?15-29 ?| ?Stage four ? | ? Stage four ?+ ---+ ---+ -------+| ?<15 (or dialysis) ? ?| ?Stage five ? | ? Stage five ?+ ---+ ---+ -------+ *Each stage assumes the associated GFR level has been in effect for at least three months. ?Stages 1 to 5, with or without kidney disease, indicate chronic kidney disease. Notes: Determination of stages one and two (with eGFR >59mL/min/1.73 m2) requires estimation of kidney damage for at least three months as defined by structural or functional abnormalities of the kidney, manifested by either:Pathological abnormalities or Markers of kidney damage (including abnormalities in the composition of the blood or urine or abnormalities in imaging tests). Lab Interpretation Abnormal (test code = 23824-5) [facility] Test Item Value Reference Range Interpretation Comments LIPASE (test code = 5449564730) 82 U/L 0-220 Lab Interpretation (test code = Normal 71941-4) [facility] [id number] 04:27:44 Test Item Value Reference Range Interpretation Comments WBC (test code = See_Comment [Automated 7990-2) message] The sy stem which generated this result transmitted reference range : 4.30 - 11.10 10*3/?L. The reference range was not used to interpret this result as normal/abnormal . RBC (test code = See_Comment L [Automated 089-8) message] The sy stem which generated this result transmitted reference range : 3.93 - 5.25 10*6/?L. The reference range was not used to interpret this result as normal/abnormal . HGB (test code = 10.9 g/dL 11.6-15.0 L 718-7) HCT (test code = 34.7 % 35.7-45.2 L 4544-3) MCV (test code = 90.1 fL 80.6-95.5 787-2) MCH (test code = 28.3 pg 25.9-32.8 785-6) MCHC (test code = 31.4 g/dL 31.6-35.1 L 786-4) RDW-SD (test code = 46.9 fL 39.0-49.9 62854-3) RDW-CV (test code = 14.2 % 12.0-15.5 788-0) PLT (test code = See_Comment [Automated 777-3) message] The sy stem which generated this result transmitted reference range : 166 - 358 10*3/ ?L. The reference r josselyn was not used to interpret this result as normal/abnormal . MPV (test code = 9.0 fL 9.5-12.9 L 84875-1) NRBC/100 WBC (test See_Comment [Automat ed code = 7491106342) message] The system which generated this result transmitted reference range : 0.0 - 10.0 /100 WBCs. The refer ence range was not u sed to interpret th is result as normal/abnormal . NRBC x10^3 (test code <0.01 See_Comment [Auto mated = 3596407703) message] The s ystem which generated this result transmitted reference range : 10*3/?L. The reference range was not used to interpret this result as normal/abnormal . GRAN MAT (NEUT) % 79.4 % (test code = 770-8) IMM GRAN % (test code 0.60 % = 5966158194) LYMPH % (test code = 10.9 % 736-9) MONO % (test code = 5.7 % 5905-5) EOS % (test code = 2.7 % 713-8) BASO % (test code = 0.7 % 706-2) GRAN MAT x10^3(ANC) 7.19 10*3/uL 1.88-7.09 H (test code = 8275482637) IMM GRAN x10^3 (test 0.05 10*3/uL 0.00-0.06 code = 1353458485) LYMPH x10^3 (test code 0.99 10*3/uL 1.32-3.29 L = 731-0) MONO x10^3 (test code 0.52 10*3/uL 0.33-0.92 = 742-7) EOS x10^3 (test code = 0.24 10*3/uL 0.03-0.39 711-2) BASO x10^3 (test code 0.06 10*3/uL 0.01-0.07 = 704-7) Lab Interpretation Abnormal (test code = 63664-9) [facility] GLUCOSE (AUTOMATED)2021-09-23 17:25:54 Test Item Value Reference Range Interpretation Comments POCT GLU (test code = 6884182646) 234 mg/dL 70-110 H Lab Interpretation (test code = Abnormal 13250-8) [facility]-23 13:58:43 Test Item Value Reference Range Interpretation Comments POCT GLU (test code = 3396392865) 202 mg/dL 70-110 H Lab Interpretation (test code = Abnormal 03497-6) [facility] METABOLIC PANEL (NA, K, CL, CO2, GLUCOSE, BUN, CREATININE, CA)2021-09-23 11:51:27 Test Item Value Reference Range Interpretation Comments NA (test code = 139 mmol/L 135-145 2949588342) K (test code = 3.9 mmol/L 3.5-5.0 8392712973) CL (test code = 93 mmol/L 98-108 L 7279390972) CO2 TOTAL (test code = 40 mmol/L 23-31 H 8032283814) AGAP (test code = 2-16 7398209360) BUN (test code = 26 mg/dL 7-23 H 0965789269) GLUCOSE (test code = 223 mg/dL 70-110 H 3491349576) CREATININE (test code = 0.96 mg/dL 0.50-1.04 1470219430) CALCIUM (test code = 9.2 mg/dL 8.6-10.6 1649359835) eGFR (test code = mL/min/1.73m2 9147127566) JENNIFFER (test code = JENNIFFER) Association of Glomerular Filtration Rate (GFR) and Staging of Kidney Disease* + --+ --+ ------+| GFR (mL/min/1.73 m2) ?| With Kidney Damage ?| ?Without Kidney Damage+ --------+ --------+ +| ?>90 ?| ?Stage one ?| ? Normal ?+ ---+ ---+ -------+| ?60-89 ?| ?Stage two ?| ? Decreased GFR ? + --+ --+ ------+| ?30-59 ?| ?Stage three ?| ? Stage three ? + --+ --+ ------+| ?15-29 ?| ?Stage four ? | ? Stage four ?+ ---+ ---+ -------+| ?<15 (or dialysis) ? ?| ?Stage five ? | ? Stage five ?+ ---+ ---+ -------+ *Each stage assumes the associated GFR level has been in effect for at least three months. ?Stages 1 to 5, with or without kidney disease, indicate chronic kidney disease. Notes: Determination of stages one and two (with eGFR >59mL/min/1.73 m2) requires estimation of kidney damage for at least three months as defined by structural or functional abnormalities of the kidney, manifested by either:Pathological abnormalities or Markers of kidney damage (including abnormalities in the composition of the blood or urine or abnormalities in imaging tests). Lab Interpretation Abnormal (test code = 05276-0) [facility] WITHOUT [id number] 10:53:54 Test Item Value Reference Range Interpretation Comments WBC (test code = 6690-2) See_Comment H [A utomated message] The system [employer] generated this result transmit alden reference range : 4.30 - 11.10 10*3/?L. The reference range was not used to interpret this result as normal/abnormal . RBC (test code = 789-8) See_Comment L [Au tomated message] The system [employer] generated this result transmit alden reference range : 3.93 - 5.25 10* 6/?L. The reference r josselyn was not used to interpret this result as normal/abnormal . HGB (test code = 718-7) 9.5 g/dL 11.6-15.0 L HCT (test code = 4544-3) 28.9 % 35.7-45.2 L MCH (test code = 785-6) 29.6 pg 25.9-32.8 MCV (test code = 787-2) 90.0 fL 80.6-95.5 MCHC (test code = 786-4) 32.9 g/dL 31.6-35.1 PLT (test code = 777-3) See_Comment [Au tomated message] The system [employer] generated this result transmit alden reference range : 166 - 358 10*3/?L. The reference range was not used to interpret this result as normal/abnormal . MPV (test code = 9.2 fL 9.5-12.9 L 56630-0) RDW-CV (test code = 13.5 % 12.0-15.5 788-0) RDW-SD (test code = 44.3 fL 39.0-49.9 34533-2) NRBC x10^3 (test code = <0.01 See_Comment [Au tomated message] 4514490655) The system [employer] generated this result transmit alden reference range : 10*3/?L. The reference range was not used to interpret this result as normal/abnormal . NRBC/100 WBC (test code See_Comment [Au tomated message] = 1564134438) The system [employer] generated this result transmit alden reference range : 0.0 - 10.0 /100 WBC s. The reference r josselyn was not used to interpret this result as normal/abnormal . IPF % (test code = 9518662355) Lab Interpretation (test Abnormal code = 64215-4) [facility] GLUCOSE (AUTOMATED)2021-09-23 10:17:17 Test Item Value Reference Range Interpretation Comments POCT GLU (test code = 8862001286) 217 mg/dL 70-110 H Lab Interpretation (test code = Abnormal 80135-9) [facility] GLUCOSE (AUTOMATED)2021-09-23 05:44:27 Test Item Value Reference Range Interpretation Comments POCT GLU (test code = 5794305567) 338 mg/dL 70-110 H Lab Interpretation (test code = Abnormal 62519-0) [facility] GLUCOSE (AUTOMATED)2021-09-23 02:18:55 Test Item Value Reference Range Interpretation Comments POCT GLU (test code = 8751280879) 365 mg/dL 70-110 H Lab Interpretation (test code = Abnormal 15080-9) [facility] 00:11:44 Test Item Value Reference Range Interpretation Comments LVOT stroke volume (test 68.50 cm3 code = 6046775205) EF(Teich) (test code = 68.30 % 5932310217) LVIDD (test code = 4.00 cm 2370137099) LVIDS (test code = 2.49 cm 6555664100) IVS (test code = 1.07 cm 4486745738) LVPWD (test code = 1.08 cm 0088757459) LVOT diameter (test code 1.92 cm = 6171520693) FS (test code = 38 % 2186842278) MV Peak E Marva (test code 83.4 cm/s = 8370578217) MV Peak A Marva (test code 136.1 cm/s = 2564754662) E/A ratio (test code = ratio 3191441467) E wave decelartion time 0.16 s (test code = 1149544581) MV E/e' septal (test 7.1 cm/s code = 7245267882) LA Volume Index (BP) 21.8 mL/m2 (test code = 0129985511) LA volume (BP) (test 43.7 mL code = 3682913675) LVOT peak marva (test code 137.5 cm/s = 1654036565) LVOT mn grad (test code mmHg = 2856019711) LA size (test code = 3.9 cm 5018281956) LAV(MOD-sp2) (test code 43.50 mL = 1118991487) LAV(MOD-sp4) (test code 42.50 mL = 9661333718) Tapse (test code = 1.88 cm 4341316836) AV LVOT peak gradient mmHg (test code = 3536516015) LVOT peak VTI (test code 23.5 cm = 5855115265) LV V1 mean (test code = 92.90 cm/s 9573104317) MV Prop V (test code = 46.60 cm/s 8738849176) Ao root annulus (test 3.1 cm code = 0666539722) Ao root diam (test code 3.10 cm = 1122692049) Aortic root (test code = 3.1 cm 8571200916) PW (test code = 1.08 cm 0.6-1.7 7715542571) EF - 2D (test code = 68.30 % 77593192) Interventricular Septum 1.07 cm Diastolic Thickness by 2D (test code = 0862252) Radiology Study observation (narrative) (test code = 19387-2) JENNIFFER (test code = JENNIFFER) ?Left?Ventricle: Normal systolic function with a visually estimated EF of 60 - 65%. Normal diastolic function. ?Tricuspid?Valve: Insufficient tricuspid regurgitation jet to estimate RVSP.No transvalvular regurgitation. RA pressure is 15-20 mmHg. ?IVC/SVC: IVC diameter is greater than 21 mm and decreases less than 50% during inspiration; therefore the estimated right atrial pressure is elevated (~15 mmHg). ?IVC normal in size. VitalsHeight Weight BSA (Calculated - sq m) BP Pulse 5' 1" (1.549 m) 230 lb (104.3 kg) 2.12 sq meters 118/66 96 [facility] GLUCOSE (AUTOMATED)2021-09-22 22:23:31 Test Item Value Reference Range Interpretation Comments POCT GLU (test code = 7737834436) 389 mg/dL 70-110 H Lab Interpretation (test code = Abnormal 11009-0) [id number] 21:48:25 Test Item Value Reference Range Interpretation Comments SPUTUM CULTURE (test Specimen cellular code = 622-1) elements do not represent lower respiratory tract. Specimen rejected for routine bacterial culture. Suggest reorder and recollection. [facility] GLUCOSE (AUTOMATED)2021-09-22 20:03:02 Test Item Value Reference Range Interpretation Comments POCT GLU (test code = 8234360912) 365 mg/dL 70-110 H Lab Interpretation (test code = Abnormal 67749-2) [facility] GLUCOSE (AUTOMATED)2021-09-22 18:09:08 Test Item Value Reference Range Interpretation Comments POCT GLU (test code = 3138372630) 361 mg/dL 70-110 H Lab Interpretation (test code = Abnormal 13012-6) [facility] GLUCOSE (AUTOMATED)2021-09-22 13:24:25 Test Item Value Reference Range Interpretation Comments POCT GLU (test code = 2764998209) 394 mg/dL 70-110 H Lab Interpretation (test code = Abnormal 25418-1) [facility] + LACTIC [id number] 13:21:48 Test Item Value Reference Range Interpretation Comments PH (test code = 2) 7.35-7.45 PCO2 (test code = See_Comment H [Automate d 2568768414) message] The sy stem which generated this result transmitted reference range : 35 - 45 mmHg. The reference range was not used to interpret this result as normal/abnormal . PO2 (test code = See_Comment L [Automated 3473202706) message] The sy stem which generated this result transmitted reference range : 80 - 100 mmHg. The reference range was not used to interpret this result as normal/abnormal . HCO3 (test code = See_Comment H [Automate d 4392360901) message] The sy stem which generated this result transmitted reference range : 22 - 26 mEq/L. The reference range was not used to interpret this result as normal/abnormal . BE (test code = See_Comment H [Automated 4986406003) message] The sy stem which generated this result transmitted reference range : -3.0 - 3.0 mEq/ L. The reference r josselyn was not used to interpret this result as normal/abnormal . THB (test code = 11.0 g/dL 12.0-16.0 L 1745984957) %O2HB (test code = 92.4 % 94.0-99.0 L 7473293992) %COHB ART (test code = 0.3 % 0.0-1.5 1648749224) %METHB ART (test code = 0.3 % 0.4-1.5 L 5628875081) VOL%O2 ART (test code = 14.3 % 15.0-23.0 L 6490370144) NA (test code = 138 mmol/L 135-145 6188551878) K+ (test code = 4.7 mmol/L 3.5-5.0 5999221748) AC CA IONZ (test code = 4.70 mg/dL 4.50-5.30 5529904775) GLUCOSE (test code = 401 mg/dL 70-110 H 2053744264) LACTIC ACID (test code 1.76 mmol/L 0.50-2.20 = 6131444978) Lab Interpretation Abnormal (test code = 73815-6) [facility] (NA, K, CL, CO2, Glucose, BUN, Creatinine, CA)2021-09-22 13:08:40 Test Item Value Reference Range Interpretation Comments NA (test code = 139 mmol/L 135-145 7721324582) K (test code = 4.9 mmol/L 3.5-5.0 7402465168) CL (test code = 93 mmol/L 98-108 L 9297942097) CO2 TOTAL (test code = 38 mmol/L 23-31 H 5242622396) AGAP (test code = 2-16 9619922328) BUN (test code = 19 mg/dL 7-23 6238965885) GLUCOSE (test code = 393 mg/dL 70-110 H 9795849183) CREATININE (test code = 0.89 mg/dL 0.50-1.04 5343086933) CALCIUM (test code = 8.9 mg/dL 8.6-10.6 8288118836) eGFR (test code = mL/min/1.73m2 7968166829) JENNIFFER (test code = JENNIFFER) Association of Glomerular Filtration Rate (GFR) and Staging of Kidney Disease* + --+ --+ ------+| GFR (mL/min/1.73 m2) ?| With Kidney Damage ?| ?Without Kidney Damage+ --------+ --------+ +| ?>90 ?| ?Stage one ?| ? Normal ?+ ---+ ---+ -------+| ?60-89 ?| ?Stage two ?| ? Decreased GFR ? + --+ --+ ------+| ?30-59 ?| ?Stage three ?| ? Stage three ? + --+ --+ ------+| ?15-29 ?| ?Stage four ? | ? Stage four ?+ ---+ ---+ -------+| ?<15 (or dialysis) ? ?| ?Stage five ? | ? Stage five ?+ ---+ ---+ -------+ *Each stage assumes the associated GFR level has been in effect for at least three months. ?Stages 1 to 5, with or without kidney disease, indicate chronic kidney disease. Notes: Determination of stages one and two (with eGFR >59mL/min/1.73 m2) requires estimation of kidney damage for at least three months as defined by structural or functional abnormalities of the kidney, manifested by either:Pathological abnormalities or Markers of kidney damage (including abnormalities in the composition of the blood or urine or abnormalities in imaging tests). Lab Interpretation Abnormal (test code = 29396-8) [facility] HospitalMagnesium [id number] 13:00:02 Test Item Value Reference Range Interpretation Comments MAGNESIUM (test code = 8988786377) 2.1 mg/dL 1.7-2.4 Lab Interpretation (test code = Normal 98622-1) [facility] HospitalPhosphorus [id number] 13:00:02 Test Item Value Reference Range Interpretation Comments PHOSPHORUS (test code = 6401297720) 3.3 mg/dL 2.5-5.0 Lab Interpretation (test code = Normal 26479-0) [facility] Function Panel (ALB, T.PRO, BILI T, BU/BC, ALT, AST, ALK, PHOS)2021-09-22 13:00:02 Test Item Value Reference Range Interpretation Comments TOTAL BILI (test code = 3798654869) 0.7 mg/dL 0.1-1.1 BILI UNCON (test code = 1772111034) 0.1 mg/dL 0.1-1.1 BILI CONJ (test code = 7964882477) 0.0 mg/dL 0.0-0.3 T PROTEIN (test code = 0664810599) 8.1 g/dL 6.3-8.2 ALBUMIN (test code = 8374004634) 4.2 g/dL 3.5-5.0 ALK PHOS (test code = 1322473029) 145 U/L 34-122 H ALTv (test code = 1742-6) 34 U/L 5-35 AST(SGOT) (test code = 1458650650) 46 U/L 13-40 H Lab Interpretation (test code = Abnormal 66909-0) [facility] HospitalProthrombin Time / [id number] 12:42:02 Test Item Value Reference Range Interpretation Comments PROTIME PATIENT (test See_Comment [Auto mated message] code = 5964-2) The system wh ich generated this result transmitted ref erence range: 10.1 - 1 2.6 Seconds. The re ference range was not u sed to interpret this result as normal/abnor mal. INR (test code = 6301-6) Nor mal INR <1.1; Warfarin Therap eutic range 2.0 to 3. 0 or 2.5 to 3.5, dep ending upon the indica tions. Lab Interpretation (test Normal code = 38511-8) [facility] HospitalCBC with [id number] 12:35:41 Test Item Value Reference Range Interpretation Comments WBC (test code = See_Comment [Automated 4690-2) message] The sy stem which generated this result transmitted reference range : 4.30 - 11.10 10*3/?L. The reference range was not used to interpret this result as normal/abnormal . RBC (test code = See_Comment L [Automated 789-8) message] The sy stem which generated this result transmitted reference range : 3.93 - 5.25 10*6/?L. The reference range was not used to interpret this result as normal/abnormal . HGB (test code = 10.0 g/dL 11.6-15.0 L 718-7) HCT (test code = 31.5 % 35.7-45.2 L 4544-3) MCV (test code = 90.3 fL 80.6-95.5 787-2) MCH (test code = 28.7 pg 25.9-32.8 785-6) MCHC (test code = 31.7 g/dL 31.6-35.1 786-4) RDW-SD (test code = 45.0 fL 39.0-49.9 93066-9) RDW-CV (test code = 13.7 % 12.0-15.5 788-0) PLT (test code = See_Comment [Automated 777-3) message] The sy stem which generated this result transmitted reference range : 166 - 358 10*3/ ?L. The reference r josselyn was not used to interpret this result as normal/abnormal . MPV (test code = 9.0 fL 9.5-12.9 L 56322-8) NRBC/100 WBC (test See_Comment [Automat ed code = 6777170258) message] The system which generated this result transmitted reference range : 0.0 - 10.0 /100 WBCs. The refer ence range was not u sed to interpret th is result as normal/abnormal . NRBC x10^3 (test code <0.01 See_Comment [Auto mated = 8269851579) message] The s ystem which generated this result transmitted reference range : 10*3/?L. The reference range was not used to interpret this result as normal/abnormal . GRAN MAT (NEUT) % 93.7 % (test code = 770-8) IMM GRAN % (test code 0.90 % = 7333880240) LYMPH % (test code = 3.2 % 736-9) MONO % (test code = 1.1 % 5905-5) EOS % (test code = 0.5 % 713-8) BASO % (test code = 0.6 % 706-2) GRAN MAT x10^3(ANC) 9.27 10*3/uL 1.88-7.09 H (test code = 4792157086) IMM GRAN x10^3 (test 0.09 10*3/uL 0.00-0.06 H code = 4575601331) LYMPH x10^3 (test code 0.32 10*3/uL 1.32-3.29 L = 731-0) MONO x10^3 (test code 0.11 10*3/uL 0.33-0.92 L = 742-7) EOS x10^3 (test code = 0.05 10*3/uL 0.03-0.39 711-2) BASO x10^3 (test code 0.06 10*3/uL 0.01-0.07 = 704-7) Lab Interpretation Abnormal (test code = 11760-3) [facility] HospitalGLYCOSYLATED HEMOGLOBIN (A1C)2021-09-22 12:16:03 Test Item Value Reference Range Interpretation Comments HGB A1C (test code = 6.4 % 4.0-5.7 H 4548-4) JENNIFFER (test code = JENNIFFER) Reference RangesNormal: <5.7%Prediabetes: 5.7 - 6.4%Diabetes: > 6.5% Lab Interpretation (test Abnormal code = 77744-9) [facility] HospitalTROPONIN [id number] 07:25:36 Test Item Value Reference Interpretation Comments Range TROPONIN I (test <0.012 See_Comment [Automated code = 8527062410) message] The system which generated this result transmitted reference range : <=0.034 ng/mL. The reference range was not used to interpret this result as normal/abnormal . JENNIFFER (test code = Reference (Normal) JENNIFFER) Range (defined by the 99th percentile reference limit): <= 0.034 ng/mL Note: Cardiac troponin begins to rise 3-4 hours after the onset of ischemia. Repeat in 4-6 hours if the sample was drawn within 3-4 hours of the onset of the symptom and found normal. Diagnosis of myocardial injury is made with acute changes in cTn concentrations with at least one serial sample above the 99th percentile upper reference limit (URL), taken together with the patient's clinical presentation. Biotin has been reported to cause a negative bias, interpret results relative to patient's use of biotin. Lab Interpretation Normal (test code = 53082-7) [facility] HospitalN-TERMINAL [id number] 07:21:56 Test Item Value Reference Range Interpretation Comments NT-proBNP (test code 127 pg/mL See_Comment H [Autom ated = 4180297190) message] The system which generated this result transmitted reference range : <=125. The reference range was not used to interpret this result as normal/abnormal . JENNIFFER (test code = JENNIFFER) Biotin has been reported to cause a negative bias, interpret results relative to patient's use of biotin. Lab Interpretation Abnormal (test code = 35181-1) [facility] HospitalCOMP. METABOLIC PANEL (39928)2021-09-22 07:01:13 Test Item Value Reference Range Interpretation Comments NA (test code = 137 mmol/L 135-145 7169557020) K (test code = 4.9 mmol/L 3.5-5.0 6150022824) CL (test code = 96 mmol/L 98-108 L 1099986304) CO2 TOTAL (test code = 36 mmol/L 23-31 H 4356010407) AGAP (test code = 2-16 0038495891) BUN (test code = 18 mg/dL 7-23 9188748352) GLUCOSE (test code = 298 mg/dL 70-110 H 6114328702) CREATININE (test code = 0.73 mg/dL 0.50-1.04 1530741400) TOTAL BILI (test code = 0.6 mg/dL 0.1-1.0 9126872772) CALCIUM (test code = 8.5 mg/dL 8.6-10.6 L 2287525503) T PROTEIN (test code = 7.1 g/dL 6.3-8.2 5866962105) ALBUMIN (test code = 4.0 g/dL 3.5-5.0 2518208590) ALK PHOS (test code = 132 U/L 34-122 H 6936659678) ALTv (test code = 31 U/L 5-35 1742-6) AST(SGOT) (test code = 51 U/L 13-40 H 7619844549) eGFR (test code = mL/min/1.73m2 2345941595) JENNIFFER (test code = JENNIFFER) Association of Glomerular Filtration Rate (GFR) and Staging of Kidney Disease* + --+ --+ ------+| GFR (mL/min/1.73 m2) ?| With Kidney Damage ?| ?Without Kidney Damage+ --------+ --------+ +| ?>90 ?| ?Stage one ?| ? Normal ?+ ---+ ---+ -------+| ?60-89 ?| ?Stage two ?| ? Decreased GFR ? + --+ --+ ------+| ?30-59 ?| ?Stage three ?| ? Stage three ? + --+ --+ ------+| ?15-29 ?| ?Stage four ? | ? Stage four ?+ ---+ ---+ -------+| ?<15 (or dialysis) ? ?| ?Stage five ? | ? Stage five ?+ ---+ ---+ -------+ *Each stage assumes the associated GFR level has been in effect for at least three months. ?Stages 1 to 5, with or without kidney disease, indicate chronic kidney disease. Notes: Determination of stages one and two (with eGFR >59mL/min/1.73 m2) requires estimation of kidney damage for at least three months as defined by structural or functional abnormalities of the kidney, manifested by either:Pathological abnormalities or Markers of kidney damage (including abnormalities in the composition of the blood or urine or abnormalities in imaging tests). Lab Interpretation Abnormal (test code = 21379-0) [facility]ACT[facility] THRMPLAS [id number] 06:54:12 Test Item Value Reference Range Interpretation Comments APTT Patient (test See_Comment [Automat ed code = 3173-2) message] The system which generated this result transmitted reference range : 23 - 38 Seconds . The reference range was not used to interpr et this result as normal/abnormal . JENNIFFER (test code = JENNIFFER) The [facility] patient population mean normal value for aPTT is 30 seconds. Lab Interpretation Normal (test code = 40369-8) [facility] HospitalPROTHROMBIN TIME / [id number] 06:52:12 Test Item Value Reference Range Interpretation Comments PROTIME PATIENT (test See_Comment [Auto mated message] code = 5964-2) The system wh ich generated this result transmitted ref erence range: 12.0 - 1 4.7 Seconds. The re ference range was not u sed to interpret this result as normal/abnor mal. INR (test code = 6301-6) Nor mal INR <1.1; Warfarin Therap eutic range 2.0 to 3. 0 or 2.5 to 3.5, dep ending upon the indica tions. Lab Interpretation (test Normal code = 17164-5) [facility] WITH [id number] 06:44:31 Test Item Value Reference Range Interpretation Comments WBC (test code = See_Comment [Automated 8190-2) message] The sy stem which generated this result transmitted reference range : 4.30 - 11.10 10*3/?L. The reference range was not used to interpret this result as normal/abnormal . RBC (test code = See_Comment L [Automated 789-8) message] The sy stem which generated this result transmitted reference range : 3.93 - 5.25 10*6/?L. The reference range was not used to interpret this result as normal/abnormal . HGB (test code = 9.8 g/dL 11.6-15.0 L 718-7) HCT (test code = 31.9 % 35.7-45.2 L 4544-3) MCV (test code = 93.8 fL 80.6-95.5 787-2) MCH (test code = 28.8 pg 25.9-32.8 785-6) MCHC (test code = 30.7 g/dL 31.6-35.1 L 786-4) RDW-SD (test code = 47.3 fL 39.0-49.9 92849-6) RDW-CV (test code = 13.8 % 12.0-15.5 788-0) PLT (test code = See_Comment [Automated 777-3) message] The sy stem which generated this result transmitted reference range : 166 - 358 10*3/ ?L. The reference r josselyn was not used to interpret this result as normal/abnormal . MPV (test code = 8.8 fL 9.5-12.9 L 34708-7) NRBC/100 WBC (test See_Comment [Automat ed code = 0196023743) message] The system which generated this result transmitted reference range : 0.0 - 10.0 /100 WBCs. The refer ence range was not u sed to interpret th is result as normal/abnormal . NRBC x10^3 (test code <0.01 See_Comment [Auto mated = 3210183340) message] The s ystem which generated this result transmitted reference range : 10*3/?L. The reference range was not used to interpret this result as normal/abnormal . GRAN MAT (NEUT) % 82.4 % (test code = 770-8) IMM GRAN % (test code 0.80 % = 6279617802) LYMPH % (test code = 8.0 % 736-9) MONO % (test code = 5.1 % 5905-5) EOS % (test code = 2.9 % 713-8) BASO % (test code = 0.8 % 706-2) GRAN MAT x10^3(ANC) 6.26 10*3/uL 1.88-7.09 (test code = 6575330544) IMM GRAN x10^3 (test 0.06 10*3/uL 0.00-0.06 code = 0819549375) LYMPH x10^3 (test code 0.61 10*3/uL 1.32-3.29 L = 731-0) MONO x10^3 (test code 0.39 10*3/uL 0.33-0.92 = 742-7) EOS x10^3 (test code = 0.22 10*3/uL 0.03-0.39 711-2) BASO x10^3 (test code 0.06 10*3/uL 0.01-0.07 = 704-7) Lab Interpretation Abnormal (test code = 18477-2) [facility]
[2022-09-09] MEDS ORDERED: LEVALBUTEROL 1.25 MG/3 ML NEB ONE (23:17)
[2022-09-10 00:29] LABS: SARS-COV-2 RT PCR NEGATIVE (NEGATIVE)
[2022-09-10 00:50] LABS: Absolute Lymphocytes (CBC) 0.3 K/uL (0.7-4.9); Hematocrit 30.1 % (36.0-45.0); Lymphocytes % 3.4 % (15.3-44.8); MCV 87.9 fL (80-100); MPV 7.1 fL (7.6-11.3); RBC Red Blood Cell Count 3.42 M/uL (3.86-4.86)
[2022-09-10 00:51] LABS: Protime INR 1.03
[2022-09-10] MEDS ORDERED: METHYLPREDNISOLONE 125 MG INJ ONE (00:53)
[2022-09-10] MEDS ORDERED: FUROSEMIDE 40 MG/4 ML VIAL ONE ×2 (00:53→11:39)
[2022-09-10 01:10] LABS: Magnesium 2.4 mg/dL (1.6-2.4); Potassium 4.2 mmol/L (3.5-5.1)
[2022-09-10 01:26] LABS: Blood Morphology Comment NOTED (NOT SEEN); Platelet Estimate ADEQ; White Blood Cell Scan OK (OK)
[2022-09-10 01:27] LABS: Polychromasia SLIGHT; Stomatocytes 1+
[2022-09-10 02:02] LABS: Urine Blood Negative (Negative); Urine Glucose 3+ (Negative); Urine Protein Negative (Negative); Urine pH 5.5 (5.0-7.0)
[2022-09-10] MEDS ORDERED: INSULIN -REGULAR HUMAN 50 UNIT/0.5 ML ML ONE ×4 (02:13→21:54)
[2022-09-10] MEDS ORDERED: NA CHLORIDE 0.9% 100 ML ONE (02:14)
[2022-09-10] MEDS ORDERED: AZITHROMYCIN 500 MG INJ IVPB ONE ×2 (02:14→11:39)
[2022-09-10] MEDS ORDERED: CEFTRIAXONE 1000 MG/VIAL ONE ×2 (02:14→11:39)
--- NOTE | 2022-09-10 02:44 | EDPHYS ---
Physician Documentation [facility] Name: Janie Erickson Age: 61 yrs Sex: Female : 1960 Arrival Date: 09/09/2022 Time: 22:42 Bed 7 Private MD: ED Physician Talha Moon HPI: 09/09 23:15 This 61 yrs old Female presents to ER via Wheelchair with complaints of Breathing cp Difficulty, Wheezing > 1 Year, Back Pain. 23:15 The patient has shortness of breath at rest. cp 23:15 Onset: The symptoms/episode began/occurred for past several days. cp 23:15 Duration: The symptoms are continuous, and are steadily getting worse. Associated signs cp and symptoms: Pertinent positives: orthopnea, Pertinent negatives: chest pain, diaphoresis, fever. Severity of symptoms: in the emergency department the symptoms are unchanged despite home interventions. The patient has been recently seen by a physician: in [place] emergency department, earlier today, with similar presenting complaints, X-rays were performed. Historical: - Allergies: 23:11 Sulfa (Sulfonamide Antibiotics); kd3 09/10 03:37 Ultram; kl 03:37 codeine sulfate; kl - PMHx: 09/09 23:11 Chronic obstructive lung disease; Congestive heart failure; diabetes mellitus; kd3 - PSHx: 09/10 03:37 trach; kl - Immunization history:: Adult Immunizations up to date. - Social history:: Smoking status: Patient reports the use of cigarette tobacco products, daily. ROS: 09/09 23:20 Constitutional: Negative for body aches, chills, fever, poor PO intake. cp 23:20 Eyes: Negative for injury, pain, redness, and discharge. cp Exam: 23:35 ECG was reviewed by the Attending Physician. cp Vital Signs: 23:08 BP 149 / 82; Pulse 113; Resp 23; Temp 97.9(O); Pulse Ox 97% on R/A; Weight 97.52 kg; kd3 09/10 01:00 BP 122 / 68; Pulse 101; Resp 18; Pulse Ox 99% ; kl 02:00 BP 124 / 69; Pulse 99; Resp 18; Temp 98; kl 03:00 BP 180 / 6; Pulse 117; Resp 22; Pulse Ox 95% ; kl 03:48 BP 143 / 81; Pulse 115; Resp 20; Pulse Ox 95% on R/A; kl MDM: 09/09 23:00 Patient medically screened. 09/09 23:12 Order name: Basic Metabolic Panel; Complete Time: 01:19 cp 09/10 01:19 Interpretation: Normal except: NA 135; CL 96; CO2 35; GLUC 449; CRE 1.11; GFR 57. cp 09/09 23:12 Order name: CBC with Diff; Complete Time: 01:37 cp 09/10 01:37 Interpretation: Normal except: RBC 3.42; HGB 9.7; HCT 30.1; RDW 16.4; MPV 7.1; RICHMOND% cp 95.1; LYM% 3.4; MN% 1.2; NEUT A 8.6; LYMA 0.3. 09/09 23:12 Order name: Magnesium; Complete Time: 01:19 cp 09/09 23:12 Order name: NT PRO-BNP; Complete Time: 01:19 cp 09/10 02:10 Interpretation: Abnormal: NT PRO-BNP 642. 09/09 23:12 Order name: PT-INR; Complete Time: 01:19 cp 09/09 23:12 Order name: Troponin HS; Complete Time: 01:19 cp 09/09 23:12 Order name: COVID-19/FLU A+B/RSV; Complete Time: 01:19 cp 09/10 01:38 Interpretation: Reviewed. cp 09/09 23:12 Order name: Strep; Complete Time: 01:19 cp 09/09 23:12 Order name: Urine Microscopic Only cp 09/09 23:12 Order name: Lactate w/ 2H reflex if indic.; Complete Time: 01:19 cp 09/10 01:19 Interpretation: Abnormal: LAC 3.0. cp 09/10 00:03 Order name: Throat Culture EDAZ 09/10 00:54 Order name: CBC Smear Scan; Complete Time: 01:37 EDAZ 09/10 01:21 Order name: Blood Culture Adult (2) cp 09/10 01:21 Order name: Procalcitonin; Complete Time: 02:42 cp 09/09 23:12 Order name: XRAY Chest (1 view) cp 09/10 01:20 Order name: CT Chest For PE Angio cp 09/10 02:02 Order name: Urine Dipstick-Ancillary; Complete Time: 02:10 EDMS 09/10 02:10 Interpretation: Normal except: UGLUC 3+. cp 09/10 03:50 Order name: Lactate Sepsis 2 HR Follow-up EDAZ 09/10 05:26 Order name: ABG Arterial Blood Gas EDMS 09/10 08:07 Order name: Lactate w/ 2H reflex if indic. EDMS 09/10 09:14 Order name: Glucose, Ancillary Testing EDAZ 09/10 11:04 Order name: Lactate Sepsis 2 HR Follow-up EDAZ 09/10 12:51 Order name: Glucose, Ancillary Testing EDMS 09/10 17:25 Order name: Glucose, Ancillary Testing EDMS 09/10 21:52 Order name: Glucose, Ancillary Testing EDAZ 09/11 02:56 Order name: CBC with Automated Diff EDMS 09/11 03:06 Order name: Basic Metabolic Panel EDAZ 09/11 08:09 Order name: Glucose, Ancillary Testing EDAZ 09/09 23:12 Order name: EKG; Complete Time: 23:13 cp 09/09 23:12 Order name: Cardiac monitoring; Complete Time: 02:02 cp 09/09 23:12 Order name: EKG - Nurse/Tech; Complete Time: 23:32 cp 09/09 23:12 Order name: IV Saline Lock; Complete Time: 02:02 cp 09/09 23:12 Order name: Labs collected and sent; Complete Time: 02:02 cp 09/09 23:12 Order name: O2 Per Protocol; Complete Time: 02:02 cp 09/09 23:12 Order name: O2 Sat Monitoring; Complete Time: 02:03 cp 09/09 23:12 Order name: Urine Dipstick-Ancillary (obtain specimen); Complete Time: 02:02 cp 09/10 01:25 Order name: Cath; Complete Time: 12:58 cp EC:35 Rate is 107 beats/min. Rhythm is regular. KS interval is normal. QRS interval is cp normal. QT interval is normal. T waves are Inverted in leads aVL, aVR. Interpreted by me. Reviewed by me. Administered Medications: 23:18 Drug: Xopenex (levalbuterol) (3) 1.25 mg Route: Inhalation; 23:52 Follow up: Response: No adverse reaction; Marked relief of symptoms 09/10 01:18 Drug: Lasix (furosemide) 40 mg Route: IVP; Site: left antecubital; 01:19 Drug: SOLU-Medrol (methylPrednisoLONE) 125 mg Route: IVP; Site: left antecubital; 02:30 Drug: Rocephin (cefTRIAXone) 1 grams Route: IV; Rate: calculated rate; Site: left kl antecubital; 02:36 Drug: Insulin Regular Human 10 units {Co-Signature: jb4 (Otoniel Quintana RN).} Route: IVP; Site: left antecubital; 02:37 Drug: Zithromax (azithromycin) 500 mg Route: IVPB; Infused Over: 1 hrs; Site: left kl antecubital; 04:12 Drug: NS 0.9% 1000 ml Route: IV; Rate: 1000 ml; Site: right antecubital; Disposition Summary: 09/10/22 02:43 Hospitalization Ordered Hospitalization Status: Inpatient Admission cp Condition: Stable cp Problem: new cp Symptoms: have improved cp Bed/Room Type: Standard cp Provider: Jose Pickering(09/10/22 02:51) [place] Location: Intensive Care Unit(09/11/22 07:43) [facility] Room Assignment: 8-(09/11/22 07:43) ja Diagnosis - Other pneumonia, unspecified organism cp - Severe sepsis without septic shock cp - Dyspnea, unspecified cp Forms: - Medication Reconciliation Form cp - SBAR form cp Signatures: Dispatcher [employer] EDMS Carie Meeks RN RN kl Attema, Lee, [facility] Milton Muir PA PA cp Garcia, Cindy, RN RN cg Aguilar, Jose, RN RN ja1 Teresa Hamm RN RN kd3 Otoniel Quintana RN jb4 Corrections: (The following items were deleted from the chart) 02:51 02:43 Gideon King cp la1 03:36 02:43 cp cg 04:15 03:36 416 cg cg 04:18 02:43 Telemetry/MedSurg (Inpatient) cp cg 04:18 04:15 cg cg 02 07:43 02/16 04:18 [facility] ER HOLD cg ja1 09/11 07:43 02 04:18 ERHOLD- cg ja
--- NOTE | 2022-09-10 02:44 | ER ---
Nurse's Notes [facility] Name: Janie Erickson Age: 61 yrs Sex: Female : 1960 Arrival Date: 09/09/2022 Time: 22:42 Bed 7 Private MD: Diagnosis: Other pneumonia, unspecified organism;Severe sepsis without septic shock;Dyspnea, unspecified Presentation: 09/09 23:08 Chief complaint: Patient states: I went to [facility] this morning because my shortness kd3 of breath has been getting worse. I feel like I cannot breathe and I cannot sit back. The took a chest X-ray and gave me a couple of breathing treatments and sent me home. They said that I do not have pneumonia. I have had a Trach and have been on a vent for about 7 years. Coronavirus screen: Vaccine status: Patient reports being unvaccinated. Ebola Screen: No symptoms or risks identified at this time. Initial Sepsis Screen: Does the patient meet any 2 criteria? No. Patient's initial sepsis screen is negative. Does the patient have a suspected source of infection? No. Patient's initial sepsis screen is negative. Risk Assessment: Do you want to hurt yourself or someone else? Patient reports no desire to harm self or others. Onset of symptoms was September 09, 2022. 23:08 Method Of Arrival: Wheelchair kd3 23:08 Acuity: PAULINA 3 kd3 Triage Assessment: 23:11 General: Appears uncomfortable, Behavior is calm, cooperative. Pain: Complains of pain kd3 in back. Respiratory: Reports shortness of breath at rest Onset: The symptoms/episode began/occurred today, the patient has moderate shortness of breath. Historical: - Allergies: 23:11 Sulfa (Sulfonamide Antibiotics); kd3 09/10 03:37 Ultram; kl 03:37 codeine sulfate; kl - PMHx: 09/09 23:11 Chronic obstructive lung disease; Congestive heart failure; diabetes mellitus; kd3 - PSHx: 09/10 03:37 trach; kl - Immunization history:: Adult Immunizations up to date. - Social history:: Smoking status: Patient reports the use of cigarette tobacco products, daily. Screenin:42 [facility] ED Fall Risk Assessment (Adult) History of falling in the last 3 months, kl including since admission No falls in past 3 months (0 pts) Confusion or Disorientation No (0 pts) Intoxicated or Sedated No (0 pts) Impaired Gait Yes (1 pt) Mobility Assist Device Used No (0 pt) Altered Elimination No (0 pt) Score/Fall Risk Level 0 - 2 = Low Risk Oriented to surroundings, Maintained a safe environment, Educated pt \T\ family on fall prevention, incl call for assistance when getting out of bed. Abuse screen: Denies threats or abuse. Nutritional screening: No deficits noted. Tuberculosis screening: No symptoms or risk factors identified. Assessment: 09/09 23:20 General: Appears distressed, uncomfortable, Behavior is cooperative. Pain: Denies pain. kl Neuro: No deficits noted. Cardiovascular: Rhythm is sinus tachycardia. Respiratory: Airway is patent Respiratory effort is labored, gasping, Respiratory pattern is tachypnea Breath sounds are diminished bilaterally. GI: No deficits noted. No signs and/or symptoms were reported involving the gastrointestinal system. : No deficits noted. No signs and/or symptoms were reported regarding the genitourinary system. EENT: No deficits noted. No signs and/or symptoms were reported regarding the EENT system. Vital Signs: 23:08 BP 149 / 82; Pulse 113; Resp 23; Temp 97.9(O); Pulse Ox 97% on R/A; Weight 97.52 kg; kd3 09/10 01:00 BP 122 / 68; Pulse 101; Resp 18; Pulse Ox 99% ; kl 02:00 BP 124 / 69; Pulse 99; Resp 18; Temp 98; kl 03:00 BP 180 / 6; Pulse 117; Resp 22; Pulse Ox 95% ; kl 03:48 BP 143 / 81; Pulse 115; Resp 20; Pulse Ox 95% on R/A; kl ED Course: 09/09 22:42 Patient arrived in ED. ja2 22:46 Milton Muir PA is PHCP. cp 22:46 Talha Moon MD is Attending Physician. cp 23:11 Triage completed. kd3 23:11 Arm band placed on right wrist. kd3 23:26 XRAY Chest (1 view) In Process Unspecified. EDMS 23:51 Missed attempt(s): 20 gauge in left antecubital area. kl 23:51 Missed attempt(s): 22 gauge in left forearm. kl 02/16 01:13 Notified Nurse Practitioner and/or Physician Offensive Coordinator of a critical lab result(s), bb lactate of 3.0, glucose of 449 Milton Isadora CAMPOS notified. 02:15 CT Chest For PE Angio In Process Unspecified. EDMS 02:42 Gideon King FNP-C is Hospitalizing Provider. cp 02:51 Jose Pickering MD is Hospitalizing Provider. la1 03:43 No provider procedures requiring assistance completed. Patient admitted, IV remains in kl place. 03:44 Patient has correct armband on for positive identification. kl 03:50 Notified Nurse Practitioner and/or Physician Offensive Coordinator of a critical lab result(s), bb lactate of 6.5 Gideon King PIPE STEM ALIGNER notified. Administered Medications: 09/09 23:18 Drug: Xopenex (levalbuterol) (3) 1.25 mg Route: Inhalation; 23:52 Follow up: Response: No adverse reaction; Marked relief of symptoms 09/10 01:18 Drug: Lasix (furosemide) 40 mg Route: IVP; Site: left antecubital; 01:19 Drug: SOLU-Medrol (methylPrednisoLONE) 125 mg Route: IVP; Site: left antecubital; kl 02:30 Drug: Rocephin (cefTRIAXone) 1 grams Route: IV; Rate: calculated rate; Site: left kl antecubital; 02:36 Drug: Insulin Regular Human 10 units {Co-Signature: jb4 (Otoniel Quintana RN).} Route: IVP; kl Site: left antecubital; 02:37 Drug: Zithromax (azithromycin) 500 mg Route: IVPB; Infused Over: 1 hrs; Site: left kl antecubital; 04:12 Drug: NS 0.9% 1000 ml Route: IV; Rate: 1000 ml; Site: right antecubital; kl Medication: 03:44 VIS not applicable for this client. Outcome: 02:43 Decision to Hospitalize by Provider. cp 03:43 Admitted to Med/surg accompanied by nurse. kl 03:43 Condition: improved 03:43 Discharge instructions given to patient, family, Instructed on the need for admit, Demonstrated understanding of instructions. 09/11 11:14 Patient left the ED. iw Signatures: Dispatcher [employer] Carie Mary RN RN kl Ballard, Brenda, RN RN bb Williams, Irene, RN RN iw Gideon King, SENIOR DATA MODELER-C SENIOR DATA MODELER-Cla1 Milton Muir PA PA cp Alexander, Jessica ja2 Doucette, Kyli, RN RN kd3 Otoniel Quintana RN jb4
--- NOTE | 2022-09-10 03:46 | P.HP ---
Certification for Inpatient Patient admitted to: Inpatient With expected LOS: >2 Midnights Patient will require the following post-hospital care: None Practitioner: I am a practitioner with admitting privileges, knowledge of patient current condition, hospital course, and medical plan of care. 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 She reports she has been feeling increasingly short of breath last couple of days, she went to [facility] this morning was evaluated given nebulizer treatments, steroids had a chest x-ray was and it was negative for pneumonia and discharged home, she continued to feel worse at the date for that reason came to our hospital for evaluation. Her labs were significant for white blood cell count of 9, hemoglobin 9.7 hematocrit 30.1 glucose 449 lactic acid 3.0 BNP 642 procalcitonin 0.06 urinalysis negative for signs of UTI flu, COVID, RSV swabs negative CT PE protocol was performed which showed no evidence of PE, bandlike opacity within the lateral segment right middle lobe corresponding to atelectasis or less likely infiltrate. Atelectatic changes within the right lung base. Tracheostomy tube in place. Patient without fever or significant leukocytosis, also received steroids earlier today. Patient also takes Lasix at home, unclear etiology of dyspnea, she was given IV Lasix, antibiotics with Rocephin/Zithromax in the emergency department. ED provider wishes to admit for further evaluation and management of dyspnea. - Past Medical/Surgical History Diabetic: Yes -: COPD -: CHF -: Insulin-dependent diabetes -: Home trach/vent 2/2 chronic hypercapnic respiratory failure -: Hypothyroidism -: Hyperlipidemia -: trach -: -: Hysterectomy -: Left knee surgery Psychosocial/ Personal History: Patient lives at home with family - Family History Father -: Cancer Brother -: Diabetes - Social History Smoking Status: Current every day smoker Counseled patient to stop smoking for: less than 10 minutes Smoking therapy provided: No Alcohol use: No CD- Drugs: No Caffeine use: No Place of Residence: Home <Gideon King - Last Filed: 09/10/22 03:39> Date of Service: 09/10/22 <Jose Pickering - Last Filed: 09/10/22 21:00> Allergies codeine Allergy (Verified 09/10/22 05:19) Itching Sulfa (Sulfonamide Antibiotics) Allergy (Verified 04/21/14 07:51) Itching/Hives/Rash tramadol [From [facility]] Adverse Reaction (Verified 09/10/22 05:19) Nausea/Vomiting Home Medications: Cefpodoxime Proxetil 100 mg PO BID #14 tablet 05/01/21 Cyclobenzaprine [Flexeril*] 10 mg PO TID 05/01/21 Famotidine 40 mg PO DAILY 05/01/21 Furosemide [Lasix*] 20 mg PO DAILY 05/01/21 Hydrocodone Bit/Acetaminophen [Hydrocodon-Acetaminophn 10-325] 1 tab PO Q6H PRN 05/01/21 Insulin Detemir [Levemir] 60 units SQ DAILY 05/01/21 Ipratropium/Albuterol Sulfate [Iprat-Albut 0.5-3(2.5) mg/3 ml] 3 ml NEB QID 05/01/21 Iron/FA/Vit B-Com W/C [Hemocyte Plus*] 1 tab PO BEDTIME 05/01/21 Levothyroxine [Synthroid*] 0.05 mg PO DAILY 05/01/21 Magnesium [Magnesium Gluconate] 500 mg PO BEDTIME 05/01/21 Metformin HCl 500 mg PO BID 05/01/21 PARoxetine HCL [Paroxetine HCl] 40 mg PO DAILY 05/01/21 Potassium Gluconate [Potassium] 595 mg PO DAILY 05/01/21 Pregabalin 300 mg PO BID 05/01/21 Quetiapine [Seroquel*] 50 mg PO BEDTIME 05/01/21 Spironolactone 25 mg PO DAILY 05/01/21 ondansetron HCL [Ondansetron HCl] 8 mg PO Q8H PRN 05/01/21 Dulaglutide [Trulicity] 05/02/21 predniSONE [Deltasone*] 10 mg PO BID #14 tab 05/03/21 Review of Systems 10-point ROS is otherwise unremarkable Respiratory: Cough, Dry, Shortness of Breath <Gideon King - Last Filed: 09/10/22 03:39> Physical Examination - Physical Exam General: Alert, In no apparent distress, Oriented x3, Obese HEENT: Atraumatic, PERRLA, Mucous membr. moist/pink, EOMI, Sclerae nonicteric Neck: Supple, 2+ carotid pulse no bruit, No LAD, Without JVD or thyroid abnormality Respiratory: Diminished Cardiovascular: Regular rate/rhythm, Normal S1 S2 Capillary refill: <2 Seconds Gastrointestinal: Normal bowel sounds, No tenderness Musculoskeletal: No tenderness Integumentary: No rashes Neurological: Normal speech, Normal strength at 5/5 x4 extr, Normal tone, Normal affect - Studies Laboratory Data (last 24 hrs) 09/10/22 00:30: PT 11.3, INR 1.03 09/10/22 00:30: WBC 9.00, Hgb 9.7 L, Hct 30.1 L, Plt Count 260 09/10/22 00:30: Sodium 135 L, Potassium 4.2, BUN 16, Creatinine 1.11 H, Glucose 449 H*, Magnesium 2.4 Microbiology Data (last 24 hrs): 09/09/22 23:40 Throat Group A Streptococcus Rapid Screen - Final <Gideon King - Last Filed: 09/10/22 03:39> - Studies Laboratory Data (last 24 hrs) 09/10/22 00:30: PT 11.3, INR 1.03 09/10/22 00:30: WBC 9.00, Hgb 9.7 L, Hct 30.1 L, Plt Count 260 09/10/22 00:30: Sodium 135 L, Potassium 4.2, BUN 16, Creatinine 1.11 H, Glucose 449 H*, Magnesium 2.4 Microbiology Data (last 24 hrs): 09/09/22 23:40 Throat Group A Streptococcus Rapid Screen - Final <Jose Pickering - Last Filed: 09/10/22 21:00> Assessment and Plan - Plan Assessment: Acute on chronic hypercapnic respiratory failure S/P Trach/home vent COPD with exacerbation SIRS criteria/lactic acidosis Atelectasis vs pneumonia Diabetes mellitus type 2 with hyperglycemia Chronic CHFunknown EF Hypothyroidism Hyperlipidemia Plan: Acute on chronic hypercapnic respiratory failure S/P Trach/home vent Patient uses special trach Brovana No. 6, continue use of home vent, will obtain VBG. Patient was given nebulizer treatments, Lasix, antibiotics in the emergency department CT concerning for atelectasis versus less likely infiltrate. Patient afebrile, white blood cell count 9 also received steroids earlier today. Procalcitonin 0.06. We will continue antibiotics for now as well as prednisone, home dose of Lasix, echocardiogram ordered. Pulmonology to be consulted. Negative for PE. COPD with exacerbation Continue home vent,. Nebulizer treatments, prednisone. Appreciate further input from pulmonology. SIRS criteria/lactic acidosis SIRS criteria present including tachycardia, tachypnea source of infection questionable at this time with CT showing atelectasis versus less likely infiltrate. No fevers or leukocytosis despite steroids, procalcitonin 0.06. Continue antibiotics, will trend lactate could be elevated from type B lactic acidosis secondary to breathing treatments. Appreciate further input from pulmonology. Atelectasis vs pneumonia Continue as above Diabetes mellitus type 2 with hyperglycemia Patient takes 60 units of long-acting insulin daily, she was given IV insulin in ED, continue reduced dose long-acting insulin with moderate sliding scale. Chronic CHFunknown EF Echocardiogram ordered, continue home dose of Lasix/spironolactone. Does not a ppear to be grossly overloaded at this time. Hypothyroidism Continue levothyroxine Hyperlipidemia Continue statin. DVT PPX: Lovenox Code status: Full Discharge Plan: Home Plan to discharge in: 48 Hours - Advance Directives Does patient have a Living Will: No Does patient have a Durable POA for Healthcare: No - Code Status/Comfort Care Code Status Assessed: Yes (Full code) Critical Care: No Time Spent Managing Pts Care (In Minutes): 70 <Gideon King - Last Filed: 09/10/22 03:39> - Plan Patient seen and examined on rounds this morning breathing improved no new/worsening symptoms, continues with cough since presentation, no significant sputum production continue empiric antibiotics for suspected pneumonia trach/home vent for several years pulm consulted titrate insulin with steroid induced hyperglycemia <Jose Pickering - Last Filed: 09/10/22 21:00>
[2022-09-10] MEDS ORDERED: NA CHLORIDE 0.9% 1,000 ML ONE (04:11)
[2022-09-10] MEDS ORDERED: IPRATROPIUM BROM 0.5MG/2.5ML NEB PRN (04:25)
[2022-09-10] MEDS ORDERED: ALBUTEROL 2.5 MG/3 ML NEB SOL NEB PRN ×2 (04:25→12:00)
[2022-09-10] MEDS ORDERED: ACETAMINOPHEN 500 MG TAB PO PRN (04:25)
[2022-09-10] MEDS ORDERED: ONDANSETRON 4 MG/2 ML VIAL ONE ×2 (04:47→17:20)
[2022-09-10] MEDS ORDERED: HYDROCODONE/APAP 10/325 TAB ONE ×2 (04:47→13:12)
[2022-09-10] MEDS: HYDROCODONE/APAP 10/325 TAB PO PRN ×2 (04:50→17:21)
[2022-09-10] MEDS: ONDANSETRON 4 MG/2 ML VIAL IV PRN ×2 (04:51→17:21)
[2022-09-10 05:21] LABS: Arterial Blood Carboxyhemoglob 1.5 % (0-1.5); Blood Gas Oxyhemoglobin 49.6 % (94-97)
[2022-09-10] MEDS: LEVOTHYROXINE SOD 0.05 MG TABLET PO SCH (06:30)
[2022-09-10] MEDS: INSULIN -REGULAR HUMAN 50 UNIT/0.5 ML ML SQ SCH ×4 (07:30→21:00)
[2022-09-10] MEDS ORDERED: INSULIN -REGULAR HUMAN 50 UNIT/0.5 ML ML SQ SCH (07:30)
[2022-09-10] MEDS: predniSONE 20 MG TAB PO SCH (09:00)
[2022-09-10] MEDS: CEFTRIAXONE 1,000 MG in NA CHLORIDE 0.9% 50 ML IVPB SCH (09:00)
[2022-09-10] MEDS: FUROSEMIDE 40 MG TABLET PO SCH (09:00)
[2022-09-10] MEDS: ENOXAPARIN 40 MG/0.4 ML SQ SCH (09:00)
[2022-09-10] MEDS: AZITHROMYCIN IV 500 MG in NA CHLORIDE 0.9% 250 ML IVPB SCH (09:00)
[2022-09-10] MEDS: FAMOTIDINE 20 MG TAB PO SCH (09:00)
[2022-09-10] MEDS: SPIRONOLACTONE 25 MG TABLET PO SCH (09:00)
[2022-09-10] MEDS ORDERED: INSULIN GLARGINE 100 UNIT/ML SQ SCH (09:00)
[2022-09-10] MEDS ORDERED: INSULIN GLARGINE 100 UNIT/ML SQ ONE ×3 (11:38→17:20)
[2022-09-10] MEDS ORDERED: ENOXAPARIN 40 MG/0.4 ML SQ ONE (11:39)
[2022-09-10] MEDS ORDERED: predniSONE 20 MG TAB ONE (11:39)
[2022-09-10] MEDS ORDERED: NA CHLORIDE 0.9% 250 ML ONE (11:39)
[2022-09-10] MEDS ORDERED: FAMOTIDINE 20 MG TAB ONE (11:39)
--- NOTE | 2022-09-10 13:38 | ECHO ---
HEIGHT: 5 ft 3 in WEIGHT: 214 lb 15.917 oz DATE OF STUDY: 09/10/[address]: Gideon King NP 2-DIMENSIONAL: YES M.MODE: YES DOPPLER: YES COLOR FLOW: YES TDS: YES PORTABLE: YES DEFINITY: NO BUBBLE STUDY: NO DIAGNOSIS: DYSPNEA, CONGESTIVE HEART FAILURE CARDIAC HISTORY: CATHERIZATION: SURGERY: PROSTHETIC VALVE: PACEMAKER: MEASUREMENTS (cm) DIASTOLIC (NORMALS) SYSTOLIC (NORMALS) IVSd 1.0 (0.6-1.2) LA Diam 3.5 (1.9-4.0) LVEF 61% LVIDd 3.8 (3.5-5.7) LVIDs 2.6 (2.0-3.5) %FS 32% LVPWd 1.0 (0.6-1.2) Ao Diam 3.0 (2.0-3.7) 2 DIMENSIONAL ASSESSMENT: RIGHT ATRIUM: NORMAL LEFT ATRIUM: NORMAL RIGHT VENTRICLE: NORMAL LEFT VENTRICLE: NORMAL TRICUSPID VALVE: MILD TR MITRAL VALVE: NORMAL PULMONIC VALVE: NORMAL AORTIC VALVE: NORMAL PERICARDIAL EFFUSION: SMALL AORTIC ROOT: NORMAL LEFT VENTRICULAR WALL MOTION: NORMAL. DOPPLER/COLOR FLOW: SEE BELOW. COMMENTS: 1. NORMAL LEFT VENTRICULAR EJECTION FRACTION 60-65%. 2. NORMAL WALL MOTION. 3. MILD TRICUSPID REGURGITATION. 4. POOR WINDOWS. 5. SMALL PERICARDIAL EFFUSION. TECHNOLOGIST: Yola COOK
--- NOTE | 2022-09-10 13:48 | RAD REPORT ---
EXAM DESCRIPTION: Single view AP chest radiograph(s). CLINICAL HISTORY: SOB. COMPARISON: None. TECHNIQUE: Single view AP chest radiograph(s). FINDINGS: Suboptimal exam due to patient body habitus and patient rotation. Suspected streaky opacit ies in the right lung base. No definite pleural effusion. No pneumothorax. Nonenlarged cardiomediasti nal silhouette. No significant osseous abnormality. Tracheostomy tube in place. IMPRESSION: Suboptimal exam due to patient body habitus and patient rotation. Suspected streaky opac ities in the right lung base. Electronically signed by: Apryl Plata MD 09/09/2022 11:46 PM BLUEPRINT DEVELOPER Due to temporary technical issues with the PACS/Fluency reporting system, reports are being signed by the in house radiologists without review as a courtesy to insure prompt reporting. The interpreting radiologist is fully responsible for the content of the report.
--- NOTE | 2022-09-10 14:55 | RAD REPORT ---
EXAM DESCRIPTION: Chest For Pe Angio 09/10/2022 2:39 AM TRIPLE VALVE TESTER CLINICAL HISTORY: 62 years, Female, SOB COMPARISON: 05/02/2021 TECHNIQUE: Multiple transaxial tomograms of the chest were obtained from the lung apices through the lung bases utilizing 2 mm slice thickness at 2 mm interval reconstruction after the administration o f large bolus of IV contrast for complete opacification of the pulmonary arteries. Subsequent 3-D maximum intensity projection images were generated in the coronal and sagittal plane f or review. This exam was performed according to our departmental dose-optimization protocol, which includes auto mated exposure control, adjustment of the mA and/or kV according to patient size and/or use of iterat kelly reconstruction technique. FINDINGS: There is a tracheotomy tube in place. The lungs parenchyma demonstrate the presence of a bandlike opacity within the lateral segment right middle lobe corresponding to atelectasis/or less likely infiltrate. Atelectatic changes are seen with in the right lung base. Mild elevation of the right hemidiaphragm. No no significant masses, nodules and/or consolidations are identified. Calcified granuloma within the subpleural left upper lobe. The trachea mainstem bronchus demonstrate to be normal. There is no significant pericardial or pleura l effusions. The thoracic aorta demonstrate to be within normal limits. There is no evidence for dissection and/or aneurysm. The heart is normal in size. There is very minimal coronary artery calcifications. There is no significant mediastinal and/or hilar lymphadenopathy. The axillary regions demonstrate to be clear. Pulmonary arteries demonstrate to be normal, no intraluminal defect are seen that would suggest pulmo nary embolus. The bone windows demonstrate no significant skeletal lesions. The visualized portions of the upper abdomen demonstrate to be unremarkable. IMPRESSION: No evidence for pulmonary embolism and/or thoracic aortic dissection. Bandlike opacity within the lateral segment right middle lobe corresponding to atelectasis/or less li steve infiltrate. Atelectatic changes within the right lung base. Mild elevation of the right hemidiaphragm. Tracheostomy tube in place. Electronically signed by: Pastor Chadwick MD 09/10/2022 2:42 AM TRIPLE VALVE TESTER Due to temporary technical issues with the PACS/Fluency reporting system, reports are being signed by the in house radiologists without review as a courtesy to insure prompt reporting. The interpreting radiologist is fully responsible for the content of the report.
[2022-09-10] MEDS: QUETIAPINE 25 MG TAB PO SCH (21:00)
[2022-09-10] MEDS ORDERED: PROMETHAZINE INJ 25 MG/ML AMP IV ONE (21:32)
[2022-09-10] MEDS: PREGABALIN 150 MG CAP PO SCH (21:35)
[2022-09-10] MEDS ORDERED: PROMETHAZINE INJ 25 MG/ML AMP ONE (21:53)
[2022-09-10] MEDS ORDERED: PREGABALIN 75 MG CAP PO ONE (21:53)
[2022-09-10] MEDS ORDERED: QUETIAPINE 25 MG TAB ONE (22:28)
[2022-09-11] MEDS ORDERED: WATER FOR INJ,STERILE 10 ML ONE (00:37)
[2022-09-11] MEDS ORDERED: IPRATROPIUM BROM 0.5MG/2.5ML ONE (00:37)
[2022-09-11 02:51] LABS: Absolute Lymphocytes (CBC) 0.7 K/uL (0.7-4.9); Hematocrit 28.4 % (36.0-45.0); Lymphocytes % 4.8 % (15.3-44.8); MCV 86.6 fL (80-100); MPV 7.4 fL (7.6-11.3); RBC Red Blood Cell Count 3.28 M/uL (3.86-4.86)
[2022-09-11] MEDS: INSULIN -REGULAR HUMAN 50 UNIT/0.5 ML ML SQ SCH ×4 (07:30→20:35)
[2022-09-11] MEDS ORDERED: INFLUENZA VACCINE (for 6+ mo) 0.5 ML DOSE IMVAC ONE (08:00)
[2022-09-11] MEDS ORDERED: INSULIN -REGULAR HUMAN 50 UNIT/0.5 ML ML ONE (08:12)
[2022-09-11] MEDS ORDERED: CEFTRIAXONE 1000 MG/VIAL ONE (08:31)
[2022-09-11] MEDS ORDERED: ONDANSETRON 4 MG/2 ML VIAL ONE (08:31)
[2022-09-11] MEDS: CEFTRIAXONE 1,000 MG in NA CHLORIDE 0.9% 50 ML IVPB SCH (08:32)
[2022-09-11] MEDS: ENOXAPARIN 40 MG/0.4 ML SQ SCH (08:37)
[2022-09-11] MEDS: FAMOTIDINE 20 MG TAB PO SCH (08:37)
[2022-09-11] MEDS: FUROSEMIDE 40 MG TABLET PO SCH (08:37)
[2022-09-11] MEDS: INSULIN GLARGINE 100 UNIT/ML SQ SCH (08:38)
[2022-09-11] MEDS ORDERED: INSULIN GLARGINE 100 UNIT/ML SQ ONE (08:39)
[2022-09-11] MEDS ORDERED: ENOXAPARIN 40 MG/0.4 ML SQ ONE (08:40)
[2022-09-11] MEDS ORDERED: FAMOTIDINE 20 MG TAB ONE (08:40)
[2022-09-11] MEDS ORDERED: FUROSEMIDE 40 MG TABLET ONE (08:40)
[2022-09-11] MEDS: SPIRONOLACTONE 25 MG TABLET PO SCH (11:41)
[2022-09-11] MEDS: predniSONE 20 MG TAB PO SCH (11:41)
[2022-09-11] MEDS: AZITHROMYCIN IV 500 MG in NA CHLORIDE 0.9% 250 ML IVPB SCH (11:41)
[2022-09-11] MEDS: HYDROCODONE/APAP 10/325 TAB PO PRN ×2 (11:42→18:58)
[2022-09-11] MEDS: LEVOTHYROXINE SOD 0.05 MG TABLET PO SCH (11:42)
--- NOTE | 2022-09-11 13:58 | P.PN ---
Subjective Date of Service: 09/11/22 Chief Complaint: COPD exacerbation Kidney 62 years of age has respiratory failure on home ventilator admitted to the hospital having increasing shortness of breath 2 days prior to arrival denies any fever chills chest pain only stable at home she is doing better she is back on her ventilator Review of Systems General: Weakness Respiratory: Shortness of Breath Physical Examination - Vital Signs Temperature: 98.3 F Blood Pressure: 111/67 Pulse: 101 Respirations: 17 Pulse Ox (%): 99 - Physical Exam General: In no apparent distress, Oriented x3 Respiratory: Clear to auscultation bilaterally, Expiratory wheezes Cardiovascular: No edema, Regular rate/rhythm, Normal S1 S2 Gastrointestinal: Normal bowel sounds, Hypoactive - Studies Microbiology Data (last 24 hrs): 09/09/22 23:40 Throat Culture & Sensitivity - Final NORMAL UPPER RESPIRATORY NATHANIEL GROWN. Assessment And Plan - Current Problems (Diagnosis) (1) Acute and chronic respiratory failure Current Visit: No Status: Acute Plan: Patient is 62 years of age on chronic ventilator at home patient is clearly hypercapnic titrate sat to 90% is no evidence of pneumonia white count was normal on admission cultures are so far negative patient uses nebulizers at home and is on on a as needed basis doing better currently stable plan to discharge I also prescribed her a trilogy inhaler
[2022-09-11] MEDS: ALBUTEROL 2.5 MG/3 ML NEB SOL NEB SCH ×3 (14:15→23:50)
--- NOTE | 2022-09-11 16:04 | EKG ---
Test Date: 2022-09-09 Test Time: 23:28:04 Costuming Supervisor: ED MEASUREMENT RESULTS: Intervals: Rate: 107 IN: 170 QRSD: 80 QT: 336 QTc: 448 Nelson: P: 73 IN: 170 QRS: 76 T: 76 INTERPRETIVE STATEMENTS: Sinus tachycardia Otherwise normal ECG Compared to ECG 05/01/2021 23:52:22 Sinus rhythm no longer present Electronically Signed On 09-11-22 16:01:02 SKIP TRACER by Tuan Wise
[2022-09-11] MEDS: PREGABALIN 150 MG CAP PO SCH (20:36)
[2022-09-11] MEDS: QUETIAPINE 25 MG TAB PO SCH (20:44)
[2022-09-12] MEDS: ALBUTEROL 2.5 MG/3 ML NEB SOL NEB SCH ×2 (02:00→08:35)
[2022-09-12] MEDS: HYDROCODONE/APAP 10/325 TAB PO PRN (03:17)
[2022-09-12 05:59] LABS: Absolute Lymphocytes (CBC) 1.5 K/uL (0.7-4.9); Hematocrit 28.3 % (36.0-45.0); Lymphocytes % 16.4 % (15.3-44.8); MCV 86.4 fL (80-100); MPV 7.2 fL (7.6-11.3); RBC Red Blood Cell Count 3.28 M/uL (3.86-4.86)
[2022-09-12] MEDS: LEVOTHYROXINE SOD 0.05 MG TABLET PO SCH (06:08)
[2022-09-12 06:19] LABS: Potassium 3.3 mmol/L (3.5-5.1)
[2022-09-12 06:21] VITALS: BMI 39.4
[2022-09-12] MEDS: INSULIN -REGULAR HUMAN 50 UNIT/0.5 ML ML SQ SCH (07:30)
[2022-09-12] MEDS: SPIRONOLACTONE 25 MG TABLET PO SCH (08:10)
[2022-09-12] MEDS: FUROSEMIDE 40 MG TABLET PO SCH (08:10)
[2022-09-12] MEDS: CEFTRIAXONE 1,000 MG in NA CHLORIDE 0.9% 50 ML IVPB SCH (08:11)
[2022-09-12] MEDS: ENOXAPARIN 40 MG/0.4 ML SQ SCH (08:11)
[2022-09-12] MEDS: FAMOTIDINE 20 MG TAB PO SCH (08:18)
[2022-09-12] MEDS: INSULIN GLARGINE 100 UNIT/ML SQ SCH (08:18)
[2022-09-12] MEDS: predniSONE 20 MG TAB PO SCH (08:18)
[2022-09-12 09:49] VITALS: BP 113/74; TEMP 96.8
--- NOTE | 2022-09-12 10:06 | P.DS ---
Admission Date: 09/10/22 Discharge Date: 09/12/22 Disposition: ROUTINE DISCHARGE Discharge Condition: FAIR Reason for Admission: COPD exacerbation - Problems (1) Acute and chronic respiratory failure Current Visit: No Status: Acute Qualifiers: Respiratory failure complication: hypoxia and hypercapnia Qualified Code(s): J96.21 - Acute and chronic respiratory failure with hypoxia; J96.22 - Acute and chronic respiratory failure with hypercapnia; J96.22 - Acute and chronic respiratory failure with hypercapnia Brief History of Present Illness: Patient is 62 years of age history of COPD vent dependent admitted with an exacerbation Hospital Course: Patient did well no known complications all labs blood cultures are all unremarkable chest x-ray was also clear no obvious evidence of an infection patient was treated conservatively did well at the time of discharge was also prescribed some trilogy to try take prednisone 10 mg twice a day for a week and then as needed continue with bronchodilators as needed White count was normal on admission blood pressure was also stable to resume her home diuretics At the time of discharge alert oriented responsive cooperative patient is able to speak on a ventilator feels better chest diminished air entry extremities minimal edema discharged Vital Signs/Physical Exam: Temp Pulse Resp BP Pulse Ox 96.8 F 90 15 113/74 93 09/12/22 08:00 09/12/22 08:00 09/12/22 08:00 09/12/22 08:00 09/12/22 08:00 Laboratory Data at Discharge: WBC 9.40 K/uL (4.3-10.9) 09/12/22 05:23 Hgb 9.4 g/dL (12.0-15.0) L 09/12/22 05:23 Hct 28.3 % (36.0-45.0) L 09/12/22 05:23 Plt Count 240 K/uL (152-406) 09/12/22 05:23 PT 11.3 SECONDS (9.5-12.5) 09/10/22 00:30 INR 1.03 09/10/22 00:30 Sodium 137 mmol/L (136-145) 09/12/22 05:23 Potassium 3.3 mmol/L (3.5-5.1) L D 09/12/22 05:23 BUN 27 mg/dL (7-18) H 09/12/22 05:23 Creatinine 1.06 mg/dL (0.55-1.02) H 09/12/22 05:23 Glucose 134 mg/dL (74-106) H 09/12/22 05:23 Magnesium 2.4 mg/dL (1.6-2.4) 09/10/22 00:30 Home Medications: Cyclobenzaprine [Flexeril*] 10 mg PO TID 05/01/21 Famotidine 40 mg PO DAILY 05/01/21 Furosemide [Lasix*] 20 mg PO DAILY 05/01/21 Hydrocodone Bit/Acetaminophen [Hydrocodon-Acetaminophn 10-325] 1 tab PO Q6H PRN 05/01/21 Insulin Detemir [Levemir] 60 units SQ DAILY 05/01/21 Ipratropium/Albuterol Sulfate [Iprat-Albut 0.5-3(2.5) mg/3 ml] 3 ml NEB QID 05/01/21 Iron/FA/Vit B-Com W/C [Hemocyte Plus*] 1 tab PO BEDTIME 05/01/21 Levothyroxine [Synthroid*] 0.05 mg PO DAILY 05/01/21 Metformin HCl 500 mg PO BID 05/01/21 PARoxetine HCL [Paroxetine HCl] 40 mg PO DAILY 05/01/21 Pregabalin 300 mg PO BID 05/01/21 Quetiapine [Seroquel*] 50 mg PO BEDTIME 05/01/21 Spironolactone 25 mg PO DAILY 05/01/21 ondansetron HCL [Ondansetron HCl] 8 mg PO Q8H PRN 05/01/21 Fluticasone/Umeclidin/Vilanter [Trelegy Ellipta 100-62.5-25] 1 each IH DAILY 30 Days #30 aero 09/11/22 Amoxicillin/Potassium Clav [Augmentin 500-125 Tablet] 1 each PO TID #21 tab 09/12/22 predniSONE [Deltasone*] 10 mg PO BID #14 tab 09/12/22 New Medications: Amoxicillin/Potassium Clav [Augmentin 500-125 Tablet] 1 each PO TID #21 tab predniSONE [Deltasone*] 10 mg PO BID #14 tab Fluticasone/Umeclidin/Vilanter [Trelegy Ellipta 100-62.5-25] 1 each IH DAILY 30 Days #30 aero Physician Discharge Instructions: Antibiotic Augmentin has been faxed to the pharmacy patient to take prednisone 10 mg twice a day for a week and then use it as needed. She has also been faxed use it once a day and use nebulizers as needed Diet: ADA Followup: Lynette Luna MD [Primary Care Provider] - Kenyon Allen MD [ACTIVE - CAN ADMIT] -
[2022-09-12 10:12] VITALS: O2SAT 98
== END 2022-09-12 10:30 | disposition home or self-care (01) | DRG 208 ==
LOC: ER 22:41 → ERHOLD 09-10 03:28 → 4TH 09-10 04:00 → ERHOLD 09-10 04:00 → 3RD-ICU 09-11 10:05
PROVIDERS: ADMIT Hospitalist; ATTEND Internal Medicine Sleep Medicine
PROC: 5A1945Z Respiratory Ventilation, 24-96 Consecutive Hours (ICD-10-PCS; principal; 2022-09-10)
DX: J44.1 Chronic obstructive pulmonary disease with (acute) exacerbation (principal); J96.22 Acute and chronic respiratory failure with hypercapnia; J96.21 Acute and chronic respiratory failure with hypoxia; E87.20 Acidosis, unspecified; R65.10 Systemic inflammatory response syndrome (SIRS) of non-infectious origin without acute organ dysfunction; E11.65 Type 2 diabetes mellitus with hyperglycemia; E03.9 Hypothyroidism, unspecified; I50.9 Heart failure, unspecified; E78.5 Hyperlipidemia, unspecified; E66.9 Obesity, unspecified; F17.210 Nicotine dependence, cigarettes, uncomplicated; Z88.8 Allergy status to other drugs, medicaments and biological substances; Z88.5 Allergy status to narcotic agent; Z88.1 Allergy status to other antibiotic agents; Z71.6 Tobacco abuse counseling; Z93.0 Tracheostomy status; Z79.4 Long term (current) use of insulin; Z79.84 Long term (current) use of oral hypoglycemic drugs; Z68.39 Body mass index [BMI] 39.0-39.9, adult; Z79.52 Long term (current) use of systemic steroids; Z79.899 Other long term (current) drug therapy; Z79.890 Hormone replacement therapy; Z90.710 Acquired absence of both cervix and uterus; Z20.822 Contact with and (suspected) exposure to COVID-19
CPT/HCPCS: 0241U; 36415; 71045; 71275; 80048; 81003; 82805; 82947; 83605; 83735; 83880; 84145; 84484; 85025; 85610; 87040; 87070; 87081; 93005; 93306; 94003; 94640; 94760; 96374; 96375; 99285; J0456; J1650; J1815; J1940; J2405; J2550; J2930; J7030; J7050; J7512; J7613; J7614; J7644; Q9967

== ENCOUNTER 2022-09-27 16:00 | Inpatient (IN) | payer OTHER ==
--- OUTSIDE RECORDS SUMMARY | 2022-09-27 16:21 | XMS REPORT | Continuity of Care Document ---
:1960 Author Organization [facility] t Address [address] [place] [address] [address] [place] [address] Care Team Providers Name Role Phone PATRICK GAB Primary Care Physician Unavailable JOSLYN RUELAS Attending Clinician Unavailable Joslyn Ruelas [...] Attending Clinician Sunshine Pelaez MD Attending Clinician [phone] VALERIANO PANTOJA Attending Clinician Unavailable Valeriano Pantoja MD Attending Clinician JONAS HERNANDEZ Attending Clinician Unavailable Layne Guallpa MD Attending Clinician SHAHLA ANDRADE Attending Clinician Unavailable Janis Valencia MD Attending Clinician [phone] Cory Cee MD Attending Clinician DUKE VELAZQUEZ Attending Clinician Unavailable [facility] Attending Clinician Patria Brewer LVN Attending Clinician ENE GIVENS Attending Clinician Unavailable ENE GIVENS Attending Clinician Unavailable Ene Givens MD Attending Clinician Doctor Unassigned, Delight Attending Clinician Unavailable LAYNE GUALLPA Attending Clinician Unavailable APARNA BATES Attending Clinician Unavailable Aparna Bates MD Attending Clinician CAMILA ORTIZ Attending Clinician Unavailable GAB NGUYEN Attending Clinician Unavailable JUNE CALDERON Attending Clinician Unavailable JOSLYN RUELAS Admitting Clinician Unavailable JONAS HERNANDEZ Admitting Clinician Unavailable Jonas Hernandez MD Admitting Clinician GEN ACEVEDO Admitting Clinician Unavailable PAULA ROWE Admitting Clinician Unavailable Sanjay HENRY Admitting Clinician Unavailable KEVIN LEBRON Admitting Clinician Unavailable VALERIANO PANTOJA Admitting Clinician Unavailable Valeriano Pantoja MD Admitting Clinician CORY CEE Admitting Clinician Unavailable DUKE VELAZQUEZ Admitting Clinician Unavailable ENE GIVENS Admitting Clinician Unavailable Ene Givens MD Admitting Clinician APARNA BATES Admitting Clinician Unavailable GAB NGUYEN Admitting Clinician Unavailable JUNE CALDERON Admitting Clinician Unavailable Payers Payer Name Policy Type Policy Number Effective Date Expiration Date S isaactad ROBERT[employer]ORTESF[employer]OLAR FROM [id number] 2020 [facility] 00:00:00 [employer] [id number] 2022 OUT OF NETWORK 00:00:00 [facility] [id number] 2019 00:00:00 Problems Condition Condition Condition Status Onset Resolution Last Treating Co mments Source Name Details Category Date Date Treatment Clinician Date Acute Acute Disease Active Univers respirator respirator 1-11 it y of y distress y distress 00:00: [place] [facility] Chronic Chronic Disease Active Univers diastolic diastolic 1-11 ity of congestive congestive 00:[place] heart heart Medical failure failure Branch Hypertensi Hypertensi Disease Active U nivers ve urgency ve urgency -11 it y of 00:00: [place] [facility] Chest pain Chest pain Disease Active U nivers 8 ity of 00:00: [place] [facility] Abdominal Abdominal Disease Active Uni vers pain pain 8 ity of 00:00: [place] [facility] Tracheomal Tracheomal Disease Active U nivers acia acia 02-22 ity of 00:00: [place] [facility] Tracheosto Tracheosto Disease Active U nivers my in my in [address] 00:00: [place] [facility] Dyspnea, Dyspnea, Disease Active Unive rs unspecifie unspecifie 7-29 it y of d type d type 00:00: [place] [facility] Acute Acute Disease Active [facility] respirator respirator 7 it y of y failure y failure 00:00: Katherine tobias with with 00 Medical hypoxia hypoxia Branch and and hypercapni hypercapni a a Elevated Elevated Disease Active Unive rs brain brain 7-06 ity of natriureti natriureti 00:[place] c peptide c peptide 00 [facility] michel (BNP) (BNP) Branch level level Anasarca Anasarca Disease Active Unive rs 7-05 ity of 00:00: [place] [facility] Acute Acute Disease Active 2016-07 Univers respirator respirator 1-09 it y of y failure y failure 00:00: Katherine tobias Medical Branch Respirator Respirator Disease Active U nivers y failure y failure 8-15 ity of with with 00:00: [place] hypercapni hypercapni 00 Me dical a a Branch Morbid Morbid Disease Active Univers obesity obesity 7-14 ity of with body with body 00:[place] index 00 [place] dical [...] [place] y failure y failure 00 [facility] Branch Obesity Obesity Disease Active Univers (BMI (BMI 3-17 ity of 30-39.9) 30-39.9) 00:00: [place] 00 Medical Branch VAP VAP Disease Active Univers (ventilato (ventilato 5-08 it y of r-associat r-associat 00:00: [place] ed ed 00 Medical pneumonia) pneumonia) Br anch Acute Acute Disease Active Univers respirator respirator 5-08 it y of y failure y failure 00:00: Kathreine tobias with with 00 Medical hypercapni hypercapni Br anch a a SOB SOB Disease Active Univers (shortness (shortness 1-10 it y of of breath) of breath) 00:00: [place] Hypoxia Hypoxia Disease Active Univers 9-24 ity of 00:00: [place] [facility] Hypercapni Hypercapni Disease Active U nivers c c 9-01 ity of respirator respirator 00:00[place] y failure, y failure, 00 Me dical chronic chronic Branch Respirator Respirator Disease Active U nivers y failure y failure 8-16 ity of with with 00:00: [place] hypoxia hypoxia Medical Branch COPD COPD Disease Active Univers exacerbati exacerbati 7-28 it y of on on 00:00: [place] [facility] Respirator Respirator Disease Active U nivers y failure y failure 7-04 ity of with with 00:00: [place] hypoxia hypoxia Medical and and Branch hypercapni hypercapni a a Respirator Respirator Disease Active U nivers y failure y failure 6-09 ity of 00:00: [place] [facility] Hypotensio Hypotensio Disease Active U nivers n n 3-10 ity of 00:00: [place] [facility] COPD COPD Disease Active Univers (chronic (chronic 1-04 ity of obstructiv obstructiv 00:00: [place] e e 00 Medical pulmonary pulmonary Bran ch disease) disease) Allergies, Adverse Reactions, Alerts Allergy Allergy Status Severity Reaction(s) Onset Inactive Treating Comm ents Source Name Type Date Date Clinician CODEINE DRUG Active Unknown-Cmnt Uni vers INGREDI 7 ity of 00:00: [place] 00 Medical Branch TRAMADOL DRUG Active Unknown-Cmnt Un alexia INGREDI 02-16 ity of 00:00: [place] [facility] SERTRALI DRUG Active Unknown-Cmnt Un alexia NE INGREDI 02-16 ity of 00:00: [place] [facility] CEFUROXI DRUG Active Unknown-Cmnt Un alexia ME INGREDI 02-16 ity of AXETIL 00:00: [place] [facility] Cefuroxi Propensi Active Unknown - Uni vers me ty to See comments 02-16 ity of Axetil adverse 00:00: [place] reaction 00 Medical s Branch Codeine Propensi Active Unknown - [facility] ers ty to See comments 02-16 ity [...] DRUG Active Other-Cmnt Univ ers XACIN INGREDI 03-08 ity of HCL 00:00: [place] [facility] Ciproflo Propensi Active Other - See Mouth U nivers xacin ty to comments 03-08 broke out ity o f Hcl adverse 00:00: in [place] reaction blisters, Medic al s but pt Branch thinks this was to sprite not actual medicatio n TIOTROPI DRUG Active Med Other-Cmnt Univ ers UM INGREDI 02-22 ity of BROMIDE 00:00: [place] [facility] Tiotropi Propensi Active Other - See Makes U nivers um ty to comments 02-22 chela ity of [place] adverse 00:00: swell [place] reaction 00 Medical [...] Date Stop Date Quantity Comments Source History SDMS University o f Alcohol Std Drinks [place] [facility] History [facility] o f Alcohol Binge [place] [facility] al Branch History SDOH Social Unive rsity of Connections [facility] Med ical Together Branch History SDOH Social Unive rsity of Connections [facility] Medical Branch History SDOH Social Unive rsity of Connections [place] [facility] Membership Branch History SDMS Social Unive rsity of Connections [place] [facility] Meetings Branch History of tobacco Cigarette Smoker University of use [place] [facility] Exposure to 2022-08-30 2022-09-09 Not sure University of SARS-CoV-2 (event) 00:00:00 06:38:00 [place] [facility] History SDOH 2022-08-06 2022-08-06 1 University o f Alcohol Frequency 00:00:00 00:00:00 [place] M edical Branch History SDMS Social 2022-08-06 2022-08-06 5 Unive rsity of Connections Phone 00:00:00 00:00:00 [facility] edical Branch History SDOH Social 2022-08-06 2022-08-06 3 Unive rsity of Connections Living 00:00:00 00:00:00 [place] [facility] History SDOH 2022-08-06 2022-08-06 7 University o f Physical Activity 00:00:00 [facility] SDMS 2022-08-06 2022-08-06 1 University o f Physical Activity 00:00:00 [facility]00[facility] History SDMS 2022-08-06 2022-08-06 5 University o f Financial 00:00:00 00:00:00 [place] [facility] History SDOH Food 2022-08-06 2022-08-06 1 Univers ity of Worry 00:00:00 00:00:00 [place] [facility] History SDOH Food 2022-08-06 2022-08-06 1 Univers ity of Scarcity 00:00:00 00:00:00 [place] [facility] History SDMS 2022-08-06 2022-08-06 2 University o f Transport Med 00:00:00 00:00:00 [place] [facility] History SDMS 2022-08-06 2022-08-06 2 University o f Transport Non-Med 00:00:00 00:00:00 [facility] Branch Cigarettes smoked 2022-08-05 2022-08-05 Univers ity of current (pack per 00:00:00 00:00:00 [facility] day) - Reported Branch Cigarette 2022-08-05 2022-08-05 University of pack-years 00:00:00 00:00:00 [facility] Tobacco use and 2022-08-05 2022-08-05 Smokeless Universit y of exposure 00:00:00 00:00:00 tobacco non-user [facility] dical Branch Alcohol intake 2022-08-05 2022-08-05 Current University of 00:00:00 00:00:00 non-drinker of [facility] alcohol Branch (finding) Tobacco Comment 2022-02-12 2022-02-12 Pt trached Universit y of 00:00:00 00:00:00 [facility] Sex [birth year] At [birth year] Universit y of 00:00:00 00:00:00 [facility] Smoking Status Start Date Stop Date Source Ex-smoker 2022-08-05 00:00:00 2022-08-05 00:00:00 Universi ty [facility] Smokes tobacco daily 2022-02-12 00:00:00 Univers ity [facility] Medications Ordered Filled Start Stop Current Ordering Indication Dosage Frequency Signature Comments Components Source Medication Medication Date Date Medication? Clinician (SIG) Name Name predniSONE 2022- Yes [id number] 50mg Take 5 Univers 10 mg 09-10 tablets by ity of tablet 00:00: 05:59 mouth in [place] 00 :00 the Medical morning Branch for 4 days. methylpredn 2022- No 125mg 125 mg, U [...] :00 dose, On Medica l %) Wed [place] nebulizer 09/09/22 at solution 5 0800, CT mg predniSONE 2022- Yes [id number] Take 3 Univers 10 mg 08-11 06 tablets by ity of tablet 00:00: 05:59 mouth [place] 00 :00 daily for Medical 3 days, Branch THEN 2 tablets daily for 3 days, THEN 1 tablet daily for 3 days. predniSONE 2022- Yes [id number] Take 3 Univers 10 mg -17 08-21 06 tablets by ity of tablet 00:00: 05:59 mouth [place] 00 :00 daily for Medical 3 days, Branch THEN 2 tablets daily for 3 days, THEN 1 tablet daily for 3 days. HYDROcodone Yes 1{tbl} Take 1 Un alexia -acetaminop -16 tablet by ity of hen 10-325 17:04: [...] as Medica l base)/3 mL needed for [facility] nebulizer Wheezing. solution dulaglutide 0 Yes Trulicity [...] mouth ity of tablet 17:04: in the [place] [address] morning. Medical Branch Levothyroxi 2022-0 Yes 50ug Take 50 Uni vers ne 100 mcg 1-16 mcg by ity of capsule 17:04: mouth. [place] [address] Medical Branch famotidine 0 Yes 40mg Take 40 mg U nivers 40 mg 1-16 by mouth ity of tablet 17:04: in the [place] [address] morning. Medical Branch magnesium 2022-0 Yes 500mg Take 500 Uni vers gluconate 1-16 mg by ity of (MAG-G 17:04: mouth at [place] ORAL) 37 bedtime. Medical Branch montelukast 2022-0 [...] Medica l base)/3 mL needed for [facility] nebulizer Wheezing. solution dulaglutide 0 Yes [...] mouth ity of tablet 17:04: in the [place] [address] morning. Medical Branch Levothyroxi 0 Yes 50ug Take 50 Uni vers ne 100 mcg 1-16 mcg by ity of capsule 17:04: mouth. [place] [address] Medical Branch famotidine 2022-0 Yes 40mg Take 40 mg U nivers 40 mg 1-16 by mouth ity of tablet 17:04: in the [place] [address] morning. Medical Branch magnesium 2022-0 Yes 500mg Take 500 Uni vers gluconate 1-16 mg by ity of (MAG-G 17:04: mouth at [place] ORAL) 37 bedtime. Medical Branch montelukast 2022-0 [...] as Medica l base)/3 mL needed for [facility] nebulizer Wheezing. solution dulaglutide 0 Yes Trulicity U nivers (TRULICITY) 1-16 3 mg/0.5 ity of 3 mg/0.5 mL 17:04: mL [place] PnIj 37 subcutaneo Medical pen Branch injector metFORMIN 2022-0 Yes 750mg Take 750 Uni vers 500 mg 24 1-16 mg by ity of hr tablet 17:04: mouth [place] 37 daily with Medical breakfast. Branch spironolact 0 Yes 25mg Take 25 mg Univers one 25 mg 1-16 by mouth ity of tablet 17:04: in the [place] [address] morning. Medical Branch Levothyroxi 0 Yes 50ug Take 50 Uni vers ne 100 mcg 1-16 mcg by ity of capsule 17:04: mouth. [place] [address] Medical Branch famotidine 2022-0 Yes 40mg Take 40 mg U nivers 40 mg 1-16 by mouth ity of tablet 17:04: in the [place] [address] morning. Medical Branch magnesium 2022-0 Yes 500mg Take 500 Uni vers gluconate 1-16 mg by ity of (MAG-G 17:04: mouth at [place] ORAL) 37 bedtime. Medical Branch montelukast 2022-0 Yes 10mg Take 10 mg Univers 10 mg 1-16 by mouth. ity of tablet 17:04: [place] [address] Medical Branch ondansetron 2022-0 3- No 8mg Take 8 mg Univers 8 mg 1-16 01-16 by mouth ity of disintegrat 15:21: 00:00 [place] 8 [place] tablet 55 :00 (eight) Medica l hours as Branch needed for Nausea and Vomiting (N/V). ondansetron 3-0 2023- No 8mg Take 8 mg Univers (ZOFRAN) 8 1-16 01-16 by mouth ity of mg tablet 15:21: 00:00 [place] 8 [place] :00 (eight) Medical hours as Branch needed. predniSONE 3-0 Yes 30mg 30 mg, Unive rs (DELTASONE) 1-16 Oral, ity of tablet 30 14:45: DAILY, [place] mg 00 First dose Medical (after Branch last modificati on) on Wed08/10/22 at 0845, Until Discontinu ed, Routine ondansetron 3-0 Yes 4mg 4 mg, Slow Univers (ZOFRAN 1-16 IV Push, ity of (PF)) 06:08: Q6HPRN, [place] injection 4 12 Starting Medi michel mg on Wed08/10/22 at 0008, Until Discontinu ed, Routine, Nausea and Vomiting (N/V) hydrOXYzine 2023-0 Yes [id number] 10mg Take 1 Univers 10 mg 1-16 06 tablet by ity of tablet 00:00: mouth [place] 00 every 8 Medical (eight) Branch hours as needed for Anxiety. pregabalin 2023-0 Yes [id number] 300mg Take 1 Univers 300 mg 1-16 06 capsule by ity of capsule 00:00: mouth in [place] the Medical morning Branch and 1 capsule in the evening. hydrOXYzine 2023-0 Yes [id number] 10mg Take 1 Univers 10 mg 1-16 06 tablet by ity of tablet 00:00: mouth [place] 00 every 8 Medical (eight) Branch hours as needed for Anxiety. pregabalin 2023-0 Yes [id number] 300mg Take 1 Univers 300 mg 1-16 06 capsule by ity of capsule 00:00: mouth in [place] 00 the Medical morning Branch and 1 capsule in the evening. hydrOXYzine 2023-0 Yes [id number] 10mg Take 1 Univers 10 mg 1-16 06 tablet by ity of tablet 00:00: mouth [place] 00 every 8 Medical (eight) Branch hours as needed for Anxiety. pregabalin 2023-0 Yes [id number] 300mg Take 1 Univers 300 mg 16 06 capsule by ity of capsule 00:00: mouth in [place] 00 the Medical morning Branch and 1 capsule in the evening. furosemide 2022- No 20mg 20 mg, Univ ers (LASIX) 08-09 Slow IV ity of injection 14:45: 14:07 Push, [place] 20 mg 00 :00 ONCE, 1 Medical dose, On Branch 08/09/22 at 0845, Routine PARoxetine Yes 40mg 40 mg, Unive rs (PAXIL) 14 Oral, ity of tablet 40 16:45: DAILY, [place] mg 00 First dose Medical (after Branch last modificati on) on 08/08/22 at 1045, Until Discontinu ed, Routine sulfur 2022- No [id number] 5mL 5 mL, Unive rs hexafluorid 08-07 Intravenou i ty of e microsphr 17:00: 17:00 s, ONCE, 1 [place] (LUMASON) 00 :00 dose, On Medica l injection 5 Fri Branch mL 08/07/22 at 1100, Routine
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 approving Restricted medication : STELLA [...] Routine NaCl 0.9% 2022- No 500mL at 100 Univ ers (NS) bolus 08-07 mL/hr, 500 it y of infusion 09:00: 08:13 mL, IV [place] 500 mL 00 :32 Infusion, Medical ONCE, 1 Branch dose, On 08/07/22 at 0300, STAT midodrine 2022- No 5mg 5 mg, Univer [...] (after Medical last Branch modificati on) on Anayeli 08/06/22 at 2000, Until Discontinu ed, CT NaCl 0.9% 2022- No 500mL at 999 Univ ers (NS) bolus 08-06 mL/hr, 500 it y of infusion 21:15: 21:36 mL, IV [place] 500 mL 00 :48 Piggyback, Medical ONCE, 1 Branch dose, On [facility] 08/06/22 at 1515, STAT midodrine 2022- No 10mg 10 mg, Unive rs (PROAMATINE 08-06 Oral, TID, i ty of ) tablet 10 20:15: 23:07 First dose [place] mg 00 :59 (after Medical last Branch reorder) on Anayeli 08/06/22 at 1415, Until Discontinu ed, CT iopamidol 2022- No [id number] 90mL 90 mL, Univers (ISOVUE 08-06 Intravenou ity o f 370-500 mL) 16:45: 17:00 s, ONCE, 1 [place] injection 00 :00 dose, On Medica l 90 mL [facility] Branch 08/06/22 at 1100, Routine insulin Yes 25U 25 Units, Unive rs glargine 08-06 Subcutaneo ity o f (LANTUS 15:00: [place], DAILY, [place] U-100) 00 First dose Medical injection on [facility] Branch 25 Units 08/06/22 at 0900, Until Discontinu ed, Routine NaCl 0.9% 2022- No 500mL at 999 Univ ers (NS) bolus 08-06 mL/hr, 500 it y of infusion 14:00: 13:40 mL, IV [place] 500 mL 00 :02 Piggyback, Medical ONCE, 1 Branch dose, On Anayeli 08/06/22 at 0800, STAT midodrine 2022-0 2022- No 10mg 10 mg, Unive rs (PROAMATINE 08-06 Oral, ity of ) tablet 10 14:00: 13:28 ONCE, 1 [place] mg 00 :00 dose, On Medical Anayeli [place] 08/06/22 at 0800, CT insulin 2022-0 2022- No 15U 15 Units, Univ ers glargine 08-06 Subcutaneo ity of (LANTUS 05:30: 07:08 us, ONCE, [place] U-100) 00 :00 1 dose, On Medical injection [facility] 15 Units 08/05/22 at 2330, CT pregabalin 0 Yes 300mg 300 mg, Uni vers (LYRICA) 08-06 Oral, BID, ity o f capsule 300 04:45: First dose [place] mg 00 on [facility] 08/05/22 at Branch 2245, Until Discontinu ed, Routine QUEtiapine 0 Yes 75mg 75 mg, Unive rs (SEROQUEL) 08-06 Oral, QHS, ity of tablet 75 04:45: First dose [place] mg 00 on [facility] Medical 08/05/22 at Branch 2245, Until Discontinu ed, Routine acetaminoph 0 Yes 1000mg 1,000 mg, Univers en 08-06 Oral, ity of (TYLENOL) 04:40: BIDPRN, [place] tablet 20 Starting Medical 1,000 mg on [facility] 08/05/22 at 2240, Until Discontinu ed, Routine, Pain (scale 1-3) ceFEPIme 2022-0 2022- Yes 1000mg 1,000 mg, U nivers (MAXIPIME) 08-05 IV ity of 1,000 mg in 22:00: 21:59 Piggyback, [place] NaCl 0.9% 00 :00 Q8H ABX, Medica l (NS) 50 mL 21 doses, Bran ch MINI-BAG First dose on Wed08/05/22 at 1600, Last dose on Wed08/12/22 at 0800, Administer over 4 Hours, 50 mL
Reas on for Anti-Infec tive: Empiric Therapy for Suspected Infection< br>Empiric Therapy Site: Respirator y
Durat ion of therapy: 5 days NaCl 0.9% 2022- No 1000mL at 100 Uni vers (NS) IV 08-05 mL/hr, IV ity of infusion 16:30: 01:11 Infusion, Compa as 1,000 mL 00 :25 CONTINUOUS Medic al , Starting Branch on Wed08/05/22 at 1030, Until Anayeli 08/06/22 at 1911, Routine furosemide 2022- No 20mg 20 mg, Univ ers (LASIX) 08-05 Slow IV ity of injection 15:45: 13:07 Push, [place] 20 mg 00 :38 DAILY, Medical First dose Branch on Wed08/05/22 at 0945, Until Discontinu ed, Routine Sliding 0 Yes Subcutaneo Univ ers Scale 08-05 us, Q4H, ity of Insulin - 15:30: First dose [place] Lispro 00 (after Medical (HumaLOG) + last Branch Fsbg modificati Testing on) on Wed08/05/22 at 0930, Until Discontinu ed, Routine enoxaparin Yes 40mg 40 mg, Unive rs [...] 08/05/22 at 0600, Until Discontinu ed LORazepam 2022- No 1mg 1 mg, Slow U [...] Branch 0145, Until Discontinu ed, Routine pantoprazol 2022-2022- No 40mg 40 mg, Uni vers e [...] Discontinu ed, Routine, Pain (scale 4-6) LORazepam 2022-0 Yes .5mg 0.5 mg, Unive rs (ATIVAN) 08-05 Slow IV ity of injection 07:35: Push, [place] 0.5 mg 04 TIDPRN, Medical Starting Branch on Wed08/05/22 at 0135, Until Discontinu ed, Routine, Anxiety budesonide 2022- Yes .5mg 0.5 mg, Univ ers (PULMICORT 08-05 Inhalation ity of RESPULE) 07:30: , BID, [place] nebulizer 00 First dose Medi michel solution on Wed Branch 0.5 mg 08/05/22 at 0130, Until Discontinu ed, Routine ipratropium Yes 3mL 3 mL, Unive rs -albuteroL 08-05 Inhalation ity of (DUONEB) 07:30: , Q4H, [place] 0.5 mg-3 00 First dose Medic al mg(2.5 mg on Wed Branch base)/3 mL 08/05/22 at nebulizer 0130, solution 3 Until mL Discontinu ed, Routine methylPREDN 2022- No 40mg 40 mg, Uni vers ISolone sod 11 01-12 Intravenou i ty of succ 07:30: 15:21 s, Q8H, [place] (SOLU-MEDRO 00 :13 First dose Me dical [...] IV ity of (D50W) 07:27: Push, PRN, [place] injection 58 Starting Medica l 25 mL on Wed Branch 08/05/22 at 0127, Until Discontinu ed, CT, Blood Glucose < or = 70 mg/dL and patient is unable to swallow or has mental status changes. methylpredn 2021-07 Yes 125mg 125 mg, Un alexia isolone sod 08-05 Intravenou it y of succ 06:00: s, Q6H, [place] (SOLU-MEDRO 00 First dose Me dical L) on Wed Branch injection 06/05/22 125 mg at 0000, Until Discontinu ed, Routine iopamidol 2021-07- No [id number] 75mL 75 mL, Univers (ISOVUE 0-19 10-19 Intravenou ity o f 370-500 mL) 07:00: [...] 04/28/22 at 2315, STAT amoxicillin 2021-07 Yes [id number] 500mg Take 1 Univers -pot 0-05 tablet by ity of clavulanate 00:00: mouth [place] 500 mg 00 every 12 Medical 500-125 mg (twelve) Branc h tablet hours. amoxicillin 2021-07 Yes [id number] 500mg Take 1 Univers -pot 0-05 tablet by ity of clavulanate 00:00: mouth [place] 500 mg 00 every 12 Medical 500-125 mg (twelve) Branc h tablet hours. amoxicillin 2021-07 Yes [id number] 500mg Take 1 Univers -pot 0-05 tablet by ity of clavulanate 00:00: mouth [place] 500 mg 00 every 12 Medical 500-125 mg (twelve) Branc h tablet hours. amoxicillin 2021-07 Yes [id number] 500mg Take 1 Univers -pot 0-05 tablet by ity of clavulanate 00:00: mouth [place] 500 mg 00 every 12 Medical 500-125 mg (twelve) Branc h tablet hours. amoxicillin 2021-07- No [id number] 500mg Take 1 Univers -pot 0-05 01-16 [...] as Medica l base)/3 mL needed for [facility] nebulizer Wheezing. solution dulaglutide 2022-0 Yes Trulicity U nivers (TRULICITY) 8-05 3 mg/0.5 ity of 3 mg/0.5 mL 17:58: mL [place] [facility] injector metFORMIN 2021-0 Yes [...] Medica l base)/3 mL needed for [facility] nebulizer Wheezing. solution dulaglutide 0 Yes Trulicity U nivers (TRULICITY) 8-05 3 mg/0.5 ity of 3 mg/0.5 mL 17:58: mL [place] PnIj [facility] injector metFORMIN 2021-0 Yes 750mg Take 750 Uni vers 500 mg 24 8-05 mg by ity of hr tablet 17:58: mouth [place] 14 daily with Medical breakfast. Branch spironolact 0 Yes 25mg Take 25 mg Univers one 25 mg 8-05 by mouth ity of tablet 17:58: in the [place] 14 morning. Medical Branch ondansetron 2021-0 Yes 8mg Take 8 mg U nivers 8 mg 8-05 by mouth ity of disintegrat 17:58: every 8 Compa as ing tablet 14 (eight) Medica l hours as Branch needed for Nausea and Vomiting (N/V). Levothyroxi 0 Yes 50ug Take 50 Uni [...] 2021-0 Yes 1{ampul 1 Ampule Univers -albuterol 8-05 e} every 4 ity of 0.5 mg-3 17:58: (four) [place] mg(2.5 mg 14 hours as Medica l base)/3 mL needed for Bra [facility] nebulizer Wheezing. solution dulaglutide 0 Yes Trulicity U nivers (TRULICITY) 8-05 3 mg/0.5 ity of 3 mg/0.5 mL 17:58: mL [place] PnIj 14 subcutaneo Medical pen Branch injector metFORMIN 2021-0 Yes 750mg Take 750 Uni vers 500 mg 24 8-05 mg by ity of hr tablet 17:58: mouth [place] 14 daily with Medical breakfast. Branch spironolact 2021-0 [...] needed for Nausea and Vomiting (N/V). Levothyroxi 0 Yes 50ug Take 50 Uni [...] Medica l base)/3 mL needed for Bra [facility] nebulizer Wheezing. solution dulaglutide 0 Yes Trulicity U nivers (TRULICITY) 8-05 3 mg/0.5 ity of 3 mg/0.5 mL 17:58: mL [place] PnIj 14 subcutaneo Medical pen Branch injector metFORMIN 2021-0 [...] mcg by ity of capsule 17:58: mouth. [place] [address] Medical Branch HYDROcodone 0 Yes 1{tbl} Take [...] as Medica l base)/3 mL needed for [facility] nebulizer Wheezing. solution dulaglutide Yes Trulicity U nivers (TRULICITY) 8-05 3 mg/0.5 ity of 3 mg/0.5 mL 17:58: mL [place] PnIj 14 subcutaneo Medical pen Branch injector metFORMIN 0 Yes 750mg Take 750 Uni vers 500 mg 24 8-05 mg by ity of hr tablet 17:58: mouth [place] [address] daily with Medical breakfast. Branch spironolact 0 [...] 17:58: mouth. [place] 14 Medical Branch HYDROcodone 2022-0 Yes 1{tbl} Take [...] as Medica l base)/3 mL needed for [facility] nebulizer Wheezing. solution dulaglutide Yes Trulicity U nivers (TRULICITY) 8-05 3 mg/0.5 ity of 3 mg/0.5 mL 17:58: mL [place] PnIj 14 subcutaneo Medical pen Branch injector metFORMIN Yes [...] capsule 17:58: mouth. [place] 14 Medical Branch semaglutide 2- No inject Uni vers (OZEMPIC) 8-05 08-05 under the ity of 0.25 mg or 15:36: 00:00 skin. [place] 0.5 mg(2 41 :00 Medical mg/1.5 mL) Branch PnIj famotidine 2021- No 40mg Take 40 mg Univers 40 mg 02-27 by mouth ity of tablet 15:36: 00:00 in the [place] 41 :00 morning. Medical Branch melatonin Yes 6mg 6 mg, Univers (MELATIN) 02-26 Oral, QPM, ity of tablet 6 mg 22:00: First dose [place] 00 (after Medical last Branch reorder) on Wed02/26/22 at 1700, Until Discontinu ed, Routine pantoprazol [...] Discontinu ed, Routine, Pain (scale 1-3) melatonin 2021- No 6mg 6 mg, Univer s (MELATIN) 02-25 Oral, ONCE ity of tablet 6 mg 07:53: 08:06 NOW, 1 Compa as 00 :00 dose, On Medical Wed02/25/22 Branch at 0300, Routine gabapentin 2021- No 300mg 300 mg, Un alexia (NEURONTIN) 02-25 Oral, ity of capsule 300 06:15: 05:24 ONCE, 1 [place] mg 00 :00 dose, On Medical Wed02/25/22 Branch at 0115, Routine lactated 2021- No 500mL at 999 Unive rs ringers IV 02-2503 mL/hr, 500 it y of infusion 05:00: 06:00 mL, [place] 500 mL 00 :00 Intravenou Medical s, ONCE, 1 Branch dose, On Wed02/25/22 at 0000, Routine melatonin No 6mg 6 mg, Univer s (MELATIN) 02-25 Oral, ONCE ity of tablet 6 mg 03:15: 02:44 NOW, 1 Compa as 00 :00 dose, On Medical Wed02/24/22 Branch at 2215, Routine ondansetron No 4mg 4 mg, Slow Univers [...] 500mL at 999 Unive rs ringers IV 02-24 08-03 mL/hr, 500 it y of infusion 17:30: 03:57 mL, [place] 500 mL 00 :22 Intravenou Medical s, ONCE, 1 Branch dose, On Wed02/24/22 at 1230, Routine lactated 2021- No 500mL at 999 Unive rs ringers IV 02-24 0802 mL/hr, 500 it y of infusion 17:30: 18:42 mL, [place] 500 mL 00 :07 Intravenou Medical s, ONCE, 1 Branch dose, On Wed02/24/22 at 1230, Routine polyethylen Yes 17g 17 g, Unive rs e glycol 02-24 Oral, BID, ity o f 3350 powder 13:00: First dose [place] 17 g 00 on Wed Medical 02/24/22 at Branch 0800, Until Discontinu ed, Routine HYDROcodone Yes [...] :00 ONCE, 1 Medical dose, On Branch Wed02/24/22 at 0445, Routine NORepinephr 2021- No .05ug/k 0.05-0.5 Univers ine 4 mg in 02-24 0803 g/min mcg/kg/min ity of 0.9% NaCl 04:27: 04:26 ?93 kg [place] 250 mL 54 :54 (17.4375-1 Medical infusion 74.375 Branch RTU mL/hr, rounded to 17.44-174. 38 mL/hr), [...] time.
lactated 2021- No 1000mL at 999 [facility] ers ringers IV 02-24 mL/hr, ity of infusion 03:15: 02:10 1,000 mL, Compa as 1,000 mL 00 :00 Intravenou Medic al s, ONCE, 1 Branch dose, On [facility] 02/23/22 at 2215, Routine sennosides Yes 8.6mg 8.6 mg, Uni vers (SENOKOT) 02-23 Oral, ity of tablet 8.6 22:45: DAILY, [place] mg 00 First dose Medical on [facility] Branch 02/23/22 at 1745, Until Discontinu ed, Routine simethicone Yes 80mg 80 mg, [facility] ers (GAS RELIEF 02-23 Oral, ity of (SIMETHICON 14:00: PC+HS, [place] E)) 00 First dose Medical chewable on [facility] tablet 80 02/23/22 at mg 0900, Until Discontinu ed, Routine metoprolol 2021- No 25mg 25 mg, [facility] ers succinate 02-23 Oral, BID, ity of XL (TOPROL 13:00: 03:28 First dose [place] XL) tablet 00 :19 on [facility] Medical 25 mg 02/23/22 at Branch 0800, Until Discontinu ed, Routine melatonin 2021- No 6mg 6 mg, Univer s (MELATIN) 02-23 Oral, ONCE ity of tablet 6 mg 08:15: 07:18 NOW, 1 [place] 00 :00 dose, On Medical [facility] 02/23/22 Branch at 0315, Routine hydrOXYzine 2021- No 10mg 10 mg, Uni vers (ATARAX) 02-23 Oral, ity of tablet 10 01:58: 03:43 Q8HPRN, [place] mg 32 :01 Starting Medical on [facility] 02/22/22 at 2058, Until [facility] 02/23/22 at 2243, Routine, Anxiety ondansetron 2021- No 4mg 4 mg, Slow Univers (ZOFRAN 02-23 IV Push, ity of (PF)) 00:15: 00:39 ONCE, On [place] injection 4 00 :00 Sun Medical mg [...] (after Medical last Branch modificati on) on [place] 02/22/22 at 1430, Until Discontinu ed, Routine trimethoben Yes 200mg 200 mg, Un alexia zamide 02-22 Intramuscu ity of (TIGAN) 17:45: lar, [place] injection 43 Q6HPRN, Medical 200 mg Starting Branch on [place] 02/22/22 at 1245, Until Discontinu ed, Routine, Nausea and Vomiting (N/V) levoFLOXaci 2021- No 750mg 750 mg, U nivers n 02-22 Oral, Q24H ity of (LEVAQUIN) 17:45: 18:17 ABX, 3 [place] tablet 750 00 :00 doses, Medical mg First dose Branch on [place] 02/22/22 at 1245, Last dose on Wed02/24/22 at [...] 1 last Branch tablet modificati on) on 02/22/22 at 1200, Until Discontinu ed, Routine acetaminoph No 650mg 650 mg, U nivers en 02-22 0803 Oral, ity of (TYLENOL) 14:35: 08:19 Q6HPRN, [place] tablet 650 20 :38 Starting Medic al mg on Sun Branch 02/22/22 at 0935, Until Wed02/25/22 at 0319, Routine, Pain (scale 1-3) ceFEPIme No 2000mg 2,000 mg, U nivers (MAXIPIME) 02-22 IV ity of 2,000 mg in 13:15: 14:10 Piggyback, [place] NaCl 0.9% 00 :00 ONCE, 1 Medical (NS) 50 mL dose, On Branc h MINI-BAG [place] 02/22/22 at 0815, Administer over 30 Minutes, 50 mL
Reas on for Anti-Infec tive: Documented Infection< br>Documen alden Infection Site: Respirator y
Du ration of Therapy: 10 days acetaminoph No 500mg 500 mg, U nivers en 02-22 Oral, ONCE ity of (TYLENOL) 10:30: 09:34 NOW, 1 [place] tablet 500 00 :00 dose, On Medic al mg Sun Branch 02/22/22 at 0530, Routine HYDROcodone 2021- No 1{tbl} 1 tablet, Univers -acetaminop 02-22 Oral, ity of hen (NORCO 08:00: 07:02 ONCE, 1 Compa as 5) 5-325 mg 00 :00 dose, On Medi michel tablet 1 Sun Branch tablet 02/22/22 at 0300, Routine HYDROcodone 2021-2021- No 1{tbl} 1 tablet, Univers -acetaminop 02-21 Oral, ity of hen (NORCO 23:15: 22:32 ONCE, 1 Compa as 5) 5-325 mg 00 :00 dose, On Medi michel tablet 1 Sat Branch tablet 02/21/22 at 1815, Routine rosuvastati Yes 10mg 10 mg, Univ ers n (CRESTOR) 02-21 Oral, ity of tablet 10 14:00: DAILY, [place] mg 00 First dose Medical on [facility] 02/21/22 at 0900, Until Discontinu ed, Routine aspirin Yes 81mg 81 mg, Univers chewable 02-21 Oral, ity of tablet 81 14:00: DAILY, [place] mg 00 First dose Medical on [facility] 02/21/22 at 0900, Until Discontinu ed, Routine spironolact 2021- No 25mg 25 mg, Uni vers one 02-21 Oral, ity of (ALDACTONE) 14:00: 03:59 DAILY, Compa as tablet 25 00 :42 First dose Medi michel mg on [facility] 02/21/22 at 0900, Until Discontinu ed, Routine furosemide 2021- No 40mg 40 mg, Univ ers (LASIX) 02-21 0802 Oral, ity of tablet 40 14:00: 03:28 DAILY, [place] mg 00 :19 First dose Medical on [facility] 02/21/22 at 0900, Until Discontinu ed, Routine predniSONE No 40mg 40 mg, Univ ers (DELTASONE) 02-21 Oral, ity of tablet 40 14:00: 13:46 DAILY, [place] mg 00 :51 First dose Medical on [facility] 02/21/22 at 0900, Until Discontinu ed, Routine HYDROcodone 2021- No 1{tbl} 1 tablet, Univers -acetaminop 02-21 Oral, ity of hen (NORCO 12:00: 11:09 ONCE, 1 Compa as 5) 5-325 mg 00 :00 dose, On Medi michel tablet 1 [facility] tablet 02/21/22 at 0700, Routine albuterol Yes 2.5mg 2.5 mg, Univ ers (PROVENTIL) 02-21 Inhalation it y of 2.5 mg /3 03:00: , Q8H, [place] mL (0.083 00 First dose Medi michel %) on Wed Branch nebulizer 02/20/22 at solution 2200, 2.5 mg Until Discontinu ed, Routine QUEtiapine Yes 50mg 50 mg, Unive rs (SEROQUEL) 30 Oral, QHS, ity of tablet 50 02:30: First dose [place] mg 00 on Wed Medical 02/20/22 at Branch 2130, Until Discontinu ed, Routine Sliding Yes Subcutaneo Univ ers Scale 7-30 us, TID ity of Insulin - 02:00: MEALS+HS, Compa as Lispro 00 First dose Medical (HumaLOG) + on Wed Branch Fsbg 02/20/22 at Testing 2100, Until Discontinu ed, Routine pregabalin 2021- No 300mg 300 mg, Un alexia (LYRICA) 02-2131 Oral, QHS, ity of capsule 300 02:00: 19:24 First dose [place] mg 00 :59 on Wed Medical 02/20/22 at Branch 2100, Until Discontinu ed, Routine heparin Yes 5000U 5,000 Univers (porcine) 02-21 Units, ity of injection 01:00: Subcutaneo [place] 5,000 Units 00 us, Q12H, Med ical First dose Branch on Wed02/20/22 at 2000, Until Discontinu ed, Routine ceFEPIme 2021- No 2000mg 2,000 mg, U nivers (MAXIPIME) 02-21 IV ity of 2,000 mg in 01:00: 02:37 Piggyback, [place] NaCl 0.9% 00 :00 ONCE, 1 Medical (NS) 50 mL dose, On Branc h MINI-BAG Wed02/20/22 at 2000, Administer over 30 Minutes, 50 mL
Reas on for Anti-Infec tive: Documented Infection< br>Documen alden Infection Site: Abdominal< br>Duratio n of Therapy: 7 days acetylcyste 2021- No 4mL 800 mg (4 Univers ine 02-21 mL), ity of (MUCOMYST) 01:00: 22:40 Inhalation [place] 200 mg/mL 00 :41 , TID, Medical (20 %) First dose Branch solution on Wed 800 mg 02/20/22 at 1999, Until Discontinu ed, Routine sodium 2021- No 4mL 4 mL, Univers chloride 7% 02-21 Inhalation i ty of (HYPER-BLESSING) 01:00: 22:40 , TID, Compa as nebulizer 00 :41 First dose Medi michel solution 4 on Wed Branch mL 02/20/22 at 2000, Until Discontinu ed, Routine glucagon 2021-0 Yes 1mg 1 mg, Univers (GLUCAGEN 02-21 Intramuscu ity of DIAGNOSTIC 00:51: lar, PRN, [place] KIT) 19 Starting Medical injection 1 on Wed Branch mg 02/20/22 at 195, Until Discontinu ed, CT, Blood Glucose < or = 70 mg/dL and patient is unable to swallow or has mental changes. dextrose 50 2021-0 Yes 25mL 25 mL, Univ ers % in water 02-21 Slow IV ity of (D50W) 00:51: Push, PRN, [place] injection 19 Starting Medica l 25 mL on Wed Branch 02/20/22 at 195, Until Discontinu ed, CT, Blood Glucose < or = 70 mg/dL and patient is unable to swallow or has mental status changes. acetaminoph 2021- No 650mg 650 mg, U nivers en 02-21 Oral, ity of (TYLENOL) 00:26: 14:35 Q6HPRN, [place] tablet 650 11 :39 Starting Medic al mg on Wed Branch 02/20/22 at 1926, Until 02/22/22 at 0935, Routine, Pain (scale 1-3), Pain (scale 4-6) furosemide 2021-0 Yes 40mg Take 1 Unive rs 40 mg 7-27 tablet by ity of tablet 00:00: mouth in [place] [address] the Medical morning. Branch furosemide 2021-0 Yes 40mg Take 1 Unive rs 40 mg 7-27 tablet by ity of tablet 00:00: mouth in [place] [address] the Medical morning. Branch furosemide 2021-0 Yes 40mg Take 1 Unive rs 40 mg 7-27 tablet by ity of tablet 00:00: mouth in [place] the Medical morning. Branch furosemide 2021-0 Yes 40mg Take 1 Unive rs 40 mg 7-27 tablet by ity of tablet 00:00: mouth in [place] 00 the Medical morning. Branch furosemide 2021-0 Yes 40mg Take 1 Unive rs 40 mg 7-27 tablet by ity of tablet 00:00: mouth in [place] 00 the Medical morning. Branch furosemide 2021-0 Yes 40mg Take 1 Unive rs 40 mg 7-27 tablet by ity of tablet 00:00: mouth in [place] 00 the Medical morning. Branch furosemide 2022-0 Yes 40mg Take 1 Unive rs 40 mg 7-27 tablet by ity of tablet 00:00: mouth in [place] 00 the Medical morning. Branch furosemide 202-0 Yes 40mg Take 1 Unive rs 40 mg 7-27 tablet by ity of tablet 00:00: mouth in [place] 00 the Medical morning. Branch furosemide 2022-0 Yes 40mg Take 1 Unive rs 40 mg 7-27 tablet by ity of tablet 00:00: mouth in [place] 00 the Medical morning. Branch furosemide 202-0 Yes 40mg Take 1 Unive rs 40 mg 7-27 tablet by ity of tablet 00:00: mouth in [place] 00 the Medical morning. Branch furosemide 2021-0 Yes 40mg Take 1 Unive rs 40 mg 7-27 tablet by ity of tablet 00:00: mouth in [place] 00 the Medical morning. Branch HYDROcodone 2021-0 Yes 1{tbl} Take 1 Un [...] Medica l base)/3 mL needed for [facility] nebulizer Wheezing. solution semaglutide 0 Yes inject Univ ers (OZEMPIC) 7-26 under the ity o f 0.25 mg or 18:10: skin. [place] 0.5 mg(2 37 Medical mg/1.5 mL) Branch PnIj dulaglutide Yes Trulicity U nivers (TRULICITY) 7-26 3 mg/0.5 ity of 3 mg/0.5 mL 18:10: mL [place] PnIj 37 subcutaneo Medical us pen Branch injector [...] and 25 mg in the evening. HYDROcodone Yes 1{tbl} Take 1 Un alexia -acetaminop 7-26 tablet by ity of hen 10-325 18:10: mouth [place] mg tablet 37 every 8 Medical (eight) Branch hours as needed. cyclobenzap Yes 10mg Take 10 mg Univers rine 5 mg 7-26 by mouth 3 ity of tablet 18:10: (three) [place] 37 times Medical daily. Branch LORazepam Yes .5mg Take 0.5 Univ ers 0.5 mg 7-26 mg by ity of tablet 18:10: mouth 2 [place] 37 (two) Medical times Branch daily as needed. ipratropium Yes 1{ampul 1 Ampule Univers -albuterol 7-26 e} every 4 ity of 0.5 mg-3 18:10: (four) [place] mg(2.5 mg 37 hours as Medica l base)/3 mL needed for [facility] nebulizer Wheezing. solution semaglutide Yes inject Univ ers (OZEMPIC) 7-26 under the ity o f 0.25 mg or 18:10: skin. [place] 0.5 mg(2 37 Medical mg/1.5 mL) Branch PnIj dulaglutide Yes Trulicity U nivers (TRULICITY) 7-26 3 mg/0.5 ity of 3 mg/0.5 mL 18:10: mL [place] PnIj 37 subcutaneo Medical us pen Branch injector metFORMIN 2021-0 Yes 750mg Take 750 Uni vers 500 mg 24 7-26 mg by ity of hr tablet 18:10: mouth [place] 37 daily with Medical breakfast. Branch spironolact Yes 25mg Take 25 mg Univers one 25 mg 02-17 by mouth ity of tablet 18:10: in the [place] [address] morning Medical and 25 mg Branch at [...] ity of 2,000 mg in 03:30: Piggyback, [place] NaCl 0.9% 00 Q12H ABX, Medic al (NS) 50 mL First dose [facility] piggyback on Wed02/16/22 at 2230, Until Discontinu ed, Administer over 4 Hours, 50 mL
Reas on for Anti-Infec tive: Documented Infection< br>Documen alden Infection Site: Respirator y
Durat ion of Therapy: 7 days NaCl 0.9% 0 Yes 2000mg Infuse Univ [...] at 1700, Until Discontinu ed, Routine ceFEPIme 2021- No 2000mg 2,000 mg, U nivers (MAXIPIME) 02-16 IV ity of 2,000 mg in 15:30: 15:30 [place], [place] NaCl 0.9% 00 :00 ONCE, 1 Medical (NS) 50 mL dose, On Branc h piggyback [facility] 02/16/22 at 1030, Administer over 30 Minutes, 50 mL
Reas on for Anti-Infec tive: Documented Infection< br>Documen alden Infection Site: Respirator y
Du ration of Therapy: 7 days lidocaine 2021- No 5mL 5 mL, Univer s 1% (PF) 02-16 Subcutaneo ity o f (XYLOCAINE) 14:45: 22:45 us, ONCE, [place] injection 5 00 :00 1 dose, On Me dical mL [facility] 02/16/22 at 0945, Routine NaCl 0.9% Yes 10mL 10 mL, Univer s (NS) 02-16 Slow IV ity of injection 14:36: Push, PRN, [place] 10 mL 37 Starting Medical on Wed [place] 02/16/22 at 0936, Until Discontinu ed, Routine, line maintenanc e furosemide 2021- No 40mg 40 mg, Univ ers (LASIX) 02-16 Oral, BID, ity o f tablet 40 01:00: 12:21 First dose [place] mg 00 :21 on [facility] 02/15/22 at Branch 2000, Until Discontinu ed, Routine insulin Yes 24U 24 Units, Unive rs glargine 02-15 Subcutaneo ity o f (LANTUS 16:53: us, Q24H, [place] U-100) 00 First dose Medical injection (after Branch 24 Units last modificati on) on 02/15/22 at 1153, Until Discontinu ed, Routine insulin Yes 5U 5 Units, Univer s lispro 02-14 Subcutaneo ity of (human) 22:00: us, TID [place] (HumaLOG 00 MEALS, Medical U-100) First dose [...]
Durat ion of therapy: 7 days HYDROcodone 0 Yes 1{tbl} 1 tablet, Univers -acetaminop 02-13 Oral, ity of hen (NORCO 21:00: Q4HPRN, [place] 5) 5-325 mg 00 Starting Medi michel tablet 1 on Wed Branch tablet 02/13/22 at 1600, Until Discontinu ed, Routine, Pain (scale 4-6) HYDROcodone 2021-0 202- No 1{tbl} 1 tablet, Univers -acetaminop 02-13 Oral, ity of hen (NORCO 19:35: 20:51 Q6HPRN, Compa as 5) 5-325 mg 55 :36 Starting Medi michel tablet 1 on Wed Branch tablet 02/13/22 at 1435, Until Wed02/13/22 at 1551, Routine, Pain (scale 4-6) D10W 10 % 2021- No at 30 [facility] IV infusion 02-13 mL/hr, IV it y of 17:55: 22:35 Infusion, [place] 58 :45 TITRATE, Medical Starting Branch on Wed02/13/22 at 1255, Until Wed02/13/22 at 1735, Routine Sliding 2021- No Subcutaneo Uni vers Scale 02-13 0723 us, Q4H, ity of Insulin - 17:00: 17:59 First dose [place] lispro 00 :02 on Fri Medical (humaLOG) + 02/13/22 at Br anch Fsbg 1200, Testing Until Discontinu ed, Routine metoprolol Yes 25mg 25 mg, Unive rs succinate 02-13 Oral, ity of XL (TOPROL 14:00: DAILY, [place] XL) tablet 00 First dose Med ical 25 mg on Wed Branch 02/13/22 at 0900, Until Discontinu ed, Routine aspirin 2022-0 Yes 81mg 81 mg, Univers chewable 02-13 Oral, ity of tablet 81 14:00: DAILY, [place] mg 00 First dose Medical on Wed Branch 02/13/22 at 0900, Until Discontinu ed, Routine acetaminoph 0 Yes 650mg 650 mg, Un alexia en 02-13 Oral, ity of (TYLENOL) 11:54: Q4HPRN, [place] tablet 650 52 Starting Medic al mg on Wed Branch 02/13/22 at 0654, Until Discontinu ed, Routine, Pain (scale 1-3) acetylcyste 2021- No 1mL 200 mg (1 Univers ine 02-13 07-26 mL), ity of (MUCOMYST) 05:00: 15:24 Inhalation [place] 200 mg/mL 00 :39 , Q6H, Medical (20 %) First dose Branch solution on Wed 200 mg 02/13/22 at 0000, Until Discontinu ed, Routine QUEtiapine Yes 100mg 100 mg, Uni vers (SEROQUEL) 02-13 Oral, QHS, ity of tablet 100 02:00: First dose [place] mg 00 on [facility] 02/12/22 at Branch 2100, Until Discontinu ed, Routine rosuvastati Yes 10mg 10 mg, Univ ers n (CRESTOR) 02-13 Oral, QHS, it y of tablet 10 02:00: First dose [place] mg 00 on [facility] 02/12/22 at Branch 2100, Until Discontinu ed, Routine pregabalin 2021- No 300mg 300 mg, Un alexia (LYRICA) 02-13 07 Oral, QHS, ity of capsule 300 02:00: 13:54 First dose [place] mg 00 :07 on [facility] 02/12/22 at Branch 2100, Until Discontinu ed, Routine furosemide 2021- No 20mg 20 mg, Univ ers (LASIX) 02-13 07-24 Slow IV ity of injection 01:00: 19:35 Push, [place] 20 mg 00 :20 Q12H, Medical First dose Branch on [facility] 02/12/22 at 2000, Until Discontinu ed, Routine piperacilli 0 2021- No 3.375g 3.375 g, Univers n-tazobacta [...] 02-12 Infusion, ity of (1/2NS) 1 L 22:29: 16:55 at 100 Compa as + KCL 20 12 :29 mL/hr, PRN Medic al mEq - SEE Branch INSTRUCTIO NS, Starting on [place] 02/12/22 at 1729, Until Wed02/13/22 at 1155, CT, Blood glucose control ondansetron Yes 4mg 4 mg, Slow Univers (ZOFRAN 02-12 IV Push, ity of (PF)) 21:36: Q6HPRN, [place] injection 4 19 Nausea and Me dical mg Vomiting Branch (N/V), Starting on [place] 02/12/22 at 1636
Do ses of ondansetro n 16 mg and above need to be administer ed via IV piggyback. For Dose >=24mg ECG monitoring is advisable.
ipratropium Yes 3mL 3 mL, Unive rs -albuteroL 02-12 Inhalation ity of (DUONEB) 19:00: , Q6H, [place] 0.5 mg-3 00 First dose Medic al mg(2.5 mg on [facility] Branch base)/3 mL 02/12/22 at nebulizer 1400, solution 3 Until mL Discontinu ed, Routine piperacilli 2021-2021- No 3.375g 3.375 g, Univers n-tazobacta 02-12 IV ity of m (ZOSYN) 15:30: 17:12 Piggyback, [place] 3.375 g in 00 :00 ONCE, 1 Medica l NaCl 0.9% dose, On Branch (NS) 50 mL [facility] MINI-BAG 02/12/22 at 1030, Administer over 30 Minutes, 50 mL
[place] for Anti-Infec tive: Empiric Therapy for Suspected Infection< br>Empiric Therapy Site: Respirator y
Durat ion of therapy: 7 days enoxaparin Yes 40mg 40 mg, Unive rs (LOVENOX) 02-12 Subcutaneo ity of injection 15:00: us, DAILY, [place] 40 mg 00 First dose Medical (after Branch last modificati on) on [place] 02/12/22 at 1000, Until Discontinu ed, Routine cefTRIAXone 2021- No 1000mg 1,000 mg, Univers (ROCEPHIN) 02-12 IV ity of 1,000 mg in 09:15: 14:35 Piggyback, [place] NaCl 0.9% 00 :41 Q24H ABX, Medic al (NS) 50 mL First dose [facility] MINI-BAG on [facility] 02/12/22 at 0415, Until Discontinu ed, Administer over 30 Minutes, 50 mL
Reas on for Anti-Infec tive: Documented Infection< br>Documen alden Infection Site: Respirator y
Durat ion of Therapy: 7 days albuterol Yes 2.5mg 2.5 mg, Univ ers (PROVENTIL) 02-12 Inhalation it y of 2.5 mg /3 08:45: , Q4HPRN, Compa as mL (0.083 01 Starting Medica l %) on [facility] Branch nebulizer 02/12/22 at solution 0345, 2.5 mg Until Discontinu ed, Routine, Shortness of Breath, Wheezing NaCl 0.45% 2021- No 1000mL Univ ers (1/2NS) 02-12 ity of 1000 mL + 08:15: 22:29 [place] KCL 20 mEq 00 :30 [facility] Branch azithromyci 2021- No 500mg 500 [...] CT insulin 2021- No 10U 10 Units, [facility] ers regular 02-12 Slow IV ity of human 03:15: 04:13 Push, [place] (HUMULIN R) 00 :00 ONCE, 1 Medic al injection dose, On Branch 10 Units [facility] 02/11/22 at 2215, STAT iopamidol 2021- No [id number] 60mL 60 mL, Univers (ISOVUE 02-12 Intravenou ity o f 370-500 mL) 02:30: 02:30 s, ONCE, 1 [place] injection 00 :00 dose, On Medica l 60 mL Wed Branch 02/11/22 at 2145, Routine predniSONE 2021-0 Yes [id number] 50mg Take 1 Univers 50 mg 7-10 00 tablet by ity of tablet 00:00: mouth [place] 00 daily. Medical Branch aspirin 81 2021-0 Yes [id number] 81mg Take 1 Univers mg chewable 7-10 00 tablet by ity of tablet 00:00: mouth [place] 00 daily with Medical breakfast. Branch predniSONE 2021-0 Yes [id number] 50mg Take 1 Univers 50 mg 7-10 00 tablet by ity of tablet 00:00: mouth [place] 00 daily. Medical Branch aspirin 81 0 Yes [id number] 81mg Take 1 Univers mg chewable 7-10 00 tablet by ity of tablet 00:00: mouth [place] 00 daily with Medical breakfast. Branch aspirin 81 2021-0 Yes [id number] 81mg Take 1 Univers mg chewable 7-10 00 tablet by ity of tablet 00:00: mouth [place] 00 daily with Medical breakfast. Branch aspirin 81 0 Yes [id number] 81mg Take 1 Univers mg chewable 7-10 00 tablet by ity of tablet 00:00: mouth [place] 00 daily with Medical breakfast. Branch aspirin 81 0 Yes [id number] 81mg Take 1 Univers mg chewable 7-10 00 tablet by ity of tablet 00:00: mouth [place] 00 daily with Medical breakfast. Branch aspirin 81 0 Yes [id number] 81mg Take 1 Univers mg chewable 7-10 00 tablet by ity of tablet 00:00: mouth [place] 00 daily with Medical breakfast. Branch aspirin 81 2021-0 Yes [id number] 81mg Take 1 Univers mg chewable 7-10 00 tablet by ity of tablet 00:00: mouth [place] 00 daily with Medical breakfast. Branch aspirin 81 2021-0 Yes [id number] 81mg Take 1 Univers mg chewable 7-10 00 tablet by ity of tablet 00:00: mouth [place] 00 daily with Medical breakfast. Branch aspirin 81 2021-0 Yes [id number] 81mg Take 1 Univers mg chewable 7-10 00 tablet by ity of tablet 00:00: mouth [place] 00 daily with Medical breakfast. Branch aspirin 81 2021-0 Yes [id number] 81mg Take 1 Univers mg chewable 7-10 00 tablet by ity of tablet 00:00: mouth [place] 00 daily with Medical breakfast. Branch aspirin 81 Yes [id number] 81mg Take 1 Univers mg chewable -10 00 tablet by ity of tablet 00:00: mouth [place] 00 daily with Medical breakfast. Branch aspirin 81 Yes [id number] 81mg Take 1 Univers mg chewable - 00 tablet by ity of tablet 00:00: mouth [place] 00 daily with Medical breakfast. Branch aspirin 81 0 Yes [id number] 81mg Take 1 Univers mg chewable - 00 tablet by ity of tablet 00:00: mouth [place] 00 daily with Medical breakfast. Branch predniSONE 2021- No [id number] 50mg Take 1 Univers 50 mg 02-01 tablet by ity of tablet 00:00: 00:00 mouth [place] 00 :00 daily. Medical Branch aspirin 81 2021- No [id number] 81mg Take 1 Univers mg chewable 02-01 tablet by it y of tablet 00:00: 00:00 mouth [place] 00 :00 daily with Medical breakfast. Branch predniSONE 2021- No [id number] 50mg Take 1 Univers 50 mg 02-01 00 tablet by ity of tablet 00:00: 00:00 mouth [place] 00 :00 daily for Medical 2 days. Branch predniSONE 2021- No 50mg 50 mg, Univ ers (DELTASONE) 01-31-12 Oral, ity of tablet 50 14:00: 13:59 [...] for Bra nch nebulizer Wheezing. solution semaglutide 0 Yes inject Univ ers (OZEMPIC) 7-09 under the ity o f 0.25 mg or 13:56: skin. [place] 0.5 mg(2 12 Medical mg/1.5 mL) Branch PnIj dulaglutide 0 Yes Trulicity U nivers (TRULICITY) 7-09 3 [...] for Bra nch nebulizer Wheezing. solution semaglutide 0 Yes inject Univ ers (OZEMPIC) 7-09 under the ity o f 0.25 mg or 13:56: skin. [place] 0.5 mg(2 12 Medical mg/1.5 mL) Branch PnIj dulaglutide Yes Trulicity U nivers (TRULICITY) 01-31 3 mg/0.5 ity of 3 mg/0.5 mL 13:56: mL [place] PnIj 12 subcutaneo Medical us pen Branch injector metFORMIN 2021-0 Yes 750mg Take 750 Uni vers 500 mg 24 01-31 mg by ity of hr tablet 13:56: mouth [place] 12 daily with Medical breakfast. Branch Potassium 2021- No Take by Univ ers Gluconate 01-31 mouth ity of 595 mg (99 11:48: 00:00 weekly. Compa as mg) Tab 08 :00 Medical Branch spironolact 2021- No 25mg Take 25 mg Univers one 25 mg 01-31 by mouth 2 ity of tablet 11:48: 00:00 (two) [place] 08 :00 times Medical daily. Branch LORazepam 2021- No .5mg 0.5 mg, Univ ers (ATIVAN) 01-31 Oral, ity of tablet 0.5 02:45: 01:48 ONCE, 1 [place] mg 00 :00 dose, On Medical 01/30/22 Branch at 2145, Routine furosemide Yes 40mg 40 mg, Unive rs (LASIX) 01-31 Oral, BID, ity of tablet 40 01:00: First dose [place] mg 00 on Fri Medical 01/30/22 at Branch 2000, Until Discontinu ed, Routine metoprolol Yes [id number] 25mg Take 1 Univers succinate 01-31 00 tablet by ity o f XL 25 mg 24 00:00: mouth 2 Compa as hr tablet 00 (two) Medical times Branch daily. metoprolol 2021-0 Yes [id number] 25mg Take 1 Univers succinate 01-31 00 tablet by ity o f XL 25 mg 24 00:00: mouth 2 [place] as hr tablet 00 (two) Medical times Branch daily. metoprolol 2021- Yes [id number] 25mg Take 1 Univers succinate 01-31 00 tablet by ity o f XL 25 mg 24 00:00: mouth 2 [place] as hr tablet 00 (two) Medical times Branch daily. metoprolol Yes [id number] 25mg Take 1 Univers succinate 01-31 00 tablet by ity o f XL 25 mg 24 00:00: mouth 2 [place] as hr tablet 00 (two) Medical times Branch daily. furosemide 2021- No [id number] 40mg Take 1 Univers 40 mg 01-31 00 tablet by ity of tablet 00:00: 04:59 mouth 2 [place] 00 :00 (two) Medical times Branch daily for 30 days. furosemide 2021- No [id number] 40mg Take 1 Univers 40 mg 01-31 tablet by ity of tablet 00:00: 04:59 mouth 2 [place] 00 :00 (two) Medical times Branch daily for 30 days. metoprolol 2021- [id number] 25mg Take 1 Univers succinate 01-31 00 tablet by ity of XL 25 mg 24 00:00: 00:00 mouth 2 [place] hr tablet 00 :00 (two) Medical times Branch daily. furosemide 2021- No [id number] 40mg Take 1 Univers 40 mg 01-31 00 tablet by ity of tablet 00:00: 00:00 mouth 2 [place] 00 :00 (two) Medical times Branch daily for 30 days. metoprolol 2021- No [id number] 25mg Take 1 Univers succinate 01-31 00 tablet by ity of XL 25 mg 24 00:00: 00:00 mouth 2 [place] hr tablet 00 :00 (two) Medical times Branch daily for 30 days. acetaminoph Yes 650mg 650 mg, Un alexia en 01-30 Oral, ity of (TYLENOL) 19:27: Q6HPRN, [place] tablet 650 59 Starting Medic al mg on Wed Branch 01/30/22 at 1427, Until Discontinu ed, Routine, Pain (scale 1-3), Temp > 38.5 C methylPREDN 2021- No 40mg 40 mg, Uni vers ISolone sod 01-29 Intravenou i ty of succ 14:00: 18:37 s, DAILY, [place] (SOLU-MEDRO 00 :50 First dose Me dical L (PF)) on [place] Branch injection 01/29/22 at 40 mg 0900, Until Discontinu ed, 1 mL ceFEPIme 2021- No 2000mg 2,000 mg, U nivers (MAXIPIME) 01-29-08 IV ity of 2,000 mg in 07:15: 22:11 [place], [place] NaCl 0.9% 00 :39 Q8H ABX, Medica l (NS) 50 mL First dose Bra [facility] MINI-BAG on [place] 01/29/22 at 0215, [...] at 2000, Until Discontinu ed, Routine ceFEPIme 2021- No 2000mg 2,000 mg, U nivers (MAXIPIME) 01-2807 IV ity of 2,000 mg in 23:45: 01:18 [place], [place] NaCl 0.9% 00 :00 ONCE, 1 Medical (NS) 50 mL dose, On Bran h MINI-BAG 01/28/22 at 1845, Administer over 30 Minutes, 50 mL
R [place] for Anti-Infec tive: Documented Infection< br>Documen alden Infection Site: Respirator y
Du ration of Therapy: 7 days propofoL IV 0 Yes 5ug/kg/ 5-50 Uni vers infusion 7-06 min mcg/kg/min ity o f 22:46: ?112.5 kg [place] 21 (3.375-33. Medical 75 mL/hr, Branch rounded to [...] Routine LORazepam 2021- No .5mg 0.5 mg, [facility] ers (ATIVAN) 01-28- Slow IV ity of injection 20:30: 19:28 [...]
Do Not Refrigerat e.
sulfur 2021- No [id number] 5mL 5 mL, [facility] ers hexafluorid 01-28 Intravenou i ty of e microsphr 15:45: 15:45 s, ONCE, 1 [place] (LUMASON) 00 :00 dose, On Medica l injection Wed01/28/22 Br anch mL at 1045, Routine
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 approving Restricted medication : STELLA [...] at 0215, Until Discontinu ed, Routine sennosides 2021-0 Yes 8.6mg 8.6 mg, Uni vers (SENOKOT) 01-28 Oral, BID, ity of tablet 8.6 07:15: First dose [place] mg 00 on Wed Medical 01/28/22 at Branch 0215, Until Discontinu ed, Routine docusate 2021-0 Yes 100mg 100 mg, Unive rs (COLACE) 01-28 Oral, BID, ity o f capsule 100 07:15: First dose [place] mg 00 on Wed Medical 01/28/22 at Branch 0215, Until Discontinu ed, Routine pregabalin 2021-0 Yes 200mg 200 mg, Uni vers (LYRICA) 01-28 Oral, BID, ity o f capsule 200 07:15: First dose [place] mg 00 on Wed Medical 01/28/22 at Branch 0215, Until Discontinu ed, Routine ondansetron 2021-0 Yes 4mg 4 mg, Slow Univers (ZOFRAN 01-28 IV Push, ity of (PF)) 07:04: Q6HPRN, [place] injection 4 34 Starting Medi michel mg on Wed [place] 01/28/22 at 0204, Until Discontinu ed, Routine, Nausea and Vomiting (N/V) glucagon 2021-0 Yes 1mg 1 mg, Univers (GLUCAGEN 01-28 Intramuscu ity of DIAGNOSTIC 07:03: lar, PRN, [place] KIT) 14 Starting Medical injection 1 on 01/28/22 at 0203, Until Discontinu ed, CT, [...] s mg 47 Starting Medical on Wed Branch 01/28/22 at 0201, Until Discontinu ed, Routine, Anxiety famotidine 0 Yes 20mg 20 mg, Unive rs (PEPCID AC) 01-28 Oral, BID, it y of tablet 20 07:00: First dose [place] mg 00 on Wed Medical 01/28/22 at Branch 0200, Until Discontinu ed, Routine QUEtiapine 0 Yes 100mg 100 mg, Uni vers (SEROQUEL) 01-28 Oral, QHS, ity of tablet 100 07:00: First dose [place] mg 00 on Wed Medical 01/28/22 at Branch 0200, Until Discontinu ed, Routine metoprolol 0 Yes 25mg 25 mg, Unive rs succinate 01-28 Oral, BID, ity of XL (TOPROL 07:00: First dose [place] XL) tablet 00 on Wed Medical 25 mg 01/28/22 at Branch 0200, Until Discontinu ed, Routine ipratropium 2021- No 3mL 3 mL, [facility] ers -albuteroL 01-28 07-06 Inhalation it y of (DUONEB) 07:00: 20:55 , QID, [place] 0.5 mg-3 00 :07 First dose Medic al mg(2.5 mg on Wed [place] base)/3 mL 01/28/22 at nebulizer 0200, solution 3 Until mL Discontinu ed, Routine cyclobenzap Yes 10mg 10 mg, [facility] ers rine 01-28 Oral, ity of (FLEXERIL) 06:59: TIDPRN, [place] tablet 10 11 Starting Medica l mg on Wed Branch 01/28/22 at 0159, Until Discontinu ed, Routine, Muscle Spasms HYDROcodone 2021-0 Yes 1{tbl} 1 tablet, Univers -acetaminop 01-28 Oral, ity of hen (NORCO) 06:57: Q6HPRN, Compa as 10-325 mg 48 Starting Medica l tablet 1 on Wed Branch tablet 01/28/22 at 0157, Until Discontinu ed, Routine, Pain (scale 4-6) furosemide 2021-0 202- No 40mg 40 mg, IV U nivers (LASIX) 01-28- Push, ity of injection 03:15: 03:17 ONCE, 1 [place] 40 mg 00 :00 dose, On Medical Wed01/27/22 Branch at 2215, CT morpHINE (4 2021- No 4mg 4 mg, Slow Univers mg/mL) 01-28 IV Push, ity of injection 4 02:30: 02:25 ONCE, 1 [place] mg 00 :00 dose, On Medical Wed01/27/22 Branch at 2130, STAT ondansetron 2021- No 4mg 4 mg, Slow [...] [place] 39 times Medical daily. Branch LORazepam Yes .5mg Take 0.5 Univ ers 0.5 mg 7-05 mg by ity of tablet 23:08: mouth 2 [place] 39 (two) Medical times Branch daily as needed. Potassium Yes Take by Unive rs Gluconate 7-05 mouth ity of 595 mg (99 23:08: weekly. [place] mg) Tab 39 Medical Branch ipratropium Yes 1{ampul 1 Ampule Univers -albuterol 7-05 e} every 4 ity of 0.5 mg-3 23:08: (four) [place] mg(2.5 mg 39 hours as Medica l base)/3 mL needed for Bra [facility] nebulizer Wheezing. solution spironolact Yes 25mg [...] 23:08: mL [place] PnIj 39 subcutaneo Medical us pen Branch injector metFORMIN 0 Yes 750mg Take 750 Uni vers 500 mg 24 7-05 mg by ity of hr tablet 23:08: mouth [place] 39 daily with Medical breakfast. Branch ALPRAZolam 2021- No 1mg 1 mg, Unive rs (XANAX) 01-13 Oral, ity of tablet 1 mg 02:45: 01:35 ONCE, 1 [place] 00 :00 dose, On Medical Mon Branch 01/12/22 at 2145, CT HYDROcodone 2021- No 1{tbl} 1 tablet, Univers -acetaminop 01-13 Oral, ONCE i ty of hen (NORCO) 02:00: 01:08 NOW, 1 Compa as 10-325 mg 00 :00 dose, On Medica l tablet 1 Mon Branch tablet 01/12/22 at 2100, Routine ibuprofen 2021- No 600mg 600 mg, Uni vers (IBU) 01-13 Oral, ity of tablet 600 00:15: 23:14 ONCE, 1 [place] mg 00 :00 dose, On Medical [facility] Branch 01/12/22 at 1915, CT LORazepam Yes [...] Medica l base)/3 mL needed for Bra [facility] nebulizer Wheezing. solution spironolact Yes 25mg [...] subcutaneo Medical us pen Branch injector metFORMIN Yes 750mg Take [...] Medica l base)/3 mL needed for Bra [facility] nebulizer Wheezing. solution spironolact Yes 25mg [...] Medica l base)/3 mL needed for Bra [facility] nebulizer Wheezing. solution spironolact Yes 25mg [...] 48 daily with Medical breakfast. Branch HYDROcodone 2021-0 Yes 1{tbl} Take 1 Un alexia -acetaminop 6-20 tablet by ity of hen 10-325 14:06: mouth [place] mg tablet 48 every 8 Medical (eight) Branch hours as needed. cyclobenzap 2021-0 Yes 10mg Take 10 mg Univers rine 5 mg 6-20 by mouth 3 ity of tablet 14:06: (three) [place] 48 times Medical daily. Branch ALPRAZolam 2021-0 Yes [id number] .5mg Take 1 Univers 0.5 mg 6-20 tablet by ity of tablet 00:00: mouth 3 [place] 00 (three) Medical times Branch daily. ALPRAZolam 2021-0 Yes [id number] .5mg Take 1 Univers 0.5 mg 6-20 tablet by ity of tablet 00:00: mouth 3 [place] 00 (three) Medical times Branch daily. ALPRAZolam 2021-0 Yes [id number] .5mg Take 1 Univers 0.5 mg 6-20 tablet by ity of tablet 00:00: mouth 3 [place] 00 (three) Medical times Branch daily. ALPRAZolam 2021-0 Yes [id number] .5mg Take 1 Univers 0.5 mg 6-20 tablet by ity of tablet 00:00: mouth 3 [place] 00 (three) Medical times Branch daily. ALPRAZolam 2021-0 2021- No [id number] .5mg Take 1 Univers 0.5 mg 6-20 07-09 tablet by ity of tablet 00:00: 00:00 mouth 3 [place] 00 :00 (three) Medical times Branch daily. ALPRAZolam 2021-0 Yes .5mg 0.5 mg, Univ ers (XANAX) 6-19 Oral, TID, ity of tablet 0.5 01:30: First dose [place] mg 00 (after Medical last Branch modificati on) on 01/10/22 at 2030, Until Discontinu ed, Routine ALPRAZolam 2022-0 2022- No .5mg 0.5 mg, Uni vers (XANAX) 01-10 Oral, TID, ity o f tablet 0.5 21:30: 01:15 First dose [place] mg 00 :25 on [facility] 01/10/22 at Branch 1630, Until Discontinu ed, Routine acetaminoph Yes 650mg 650 mg, Un alexia en 01-09 Oral, ity of (TYLENOL) 22:42: Q6HPRN, [place] tablet 650 06 Starting Medic al mg on Wed [place] 01/09/22 at 1742, Until Discontinu ed, Routine, Pain (scale 1-3), Pain (scale 4-6) FENTanyl PF No 50ug 50 mcg, Un alexia (SUBLIMAZE 01-09 Slow IV ity o f (PF)) 14:15: 18:52 Push, [place] injection 00 :00 ONCE, 1 Medical 50 mcg dose, On Branch Wed01/09/22 at 0915, Routine propofoL IV Yes 5ug/kg/ 5-50 Uni vers infusion 01-09 min mcg/kg/min ity o f 14:02: ?104.3 kg [place] 51 (3.129-31. Medical 29 mL/hr, Branch rounded to 3.13-31.29 mL/hr), IV Infusion, at 3.13-31.29 mL/hr, TITRATE, Starting on Wed01/09/22 at 0902, Until Discontinu ed, Sedation-R ASS score (-2 to -3), Routine QUEtiapine Yes 50mg 50 mg, Unive rs (SEROQUEL) 01-09 Oral, BID, ity of tablet 50 01:00: First dose [place] mg 00 (after Medical last Branch modificati on) on [facility] 01/08/22 at 2000, Until Discontinu ed, Routine QUEtiapine No 25mg 25 mg, Univ ers (SEROQUEL) 01-08 Oral, ity of tablet 25 13:54: 14:00 ONCE, 1 [place] mg 00 :00 dose, On [facility] 01/08/22 at 0900, Routine acetylcyste Yes 4mL 800 mg (4 U nivers ine 6-15 mL), ity of (MUCOMYST) 23:00: Inhalation [place] 200 mg/mL 00 , Q6H, Medical (20 %) First dose Branch solution on Wed 800 mg 01/07/22 at 1800, Until Discontinu ed, Routine FENTanyl PF 2021- No 100ug 100 mcg, Univers (SUBLIMAZE 01-07-15 Slow IV ity o f (PF)) 20:15: 19:05 Push, [place] injection 00 :00 ONCE, 1 Medical 100 mcg dose, On Branch Wed01/07/22 at 1515, Routine busPIRone Yes 5mg 5 mg, Univers (BUSPAR) 6-15 Enteral, ity of tablet 5 mg 18:00: BID, First [place] 00 dose on Medical [facility] Branch 01/07/22 at 1300, Until Discontinu ed, Routine haloperidol Yes 2mg 2 mg, Slow Univers lactate 15 IV Push, ity of (HALDOL) 17:41: Q4HPRN, [place] injection 2 00 Starting Medi michel mg on Wed Branch 01/07/22 at 1241, Until Discontinu ed, Routine, Agitation furosemide 2021- No 40mg 40 mg, Univ ers (LASIX) 01-0716 Slow IV ity of injection 17:00: 10:59 Push, Q6H, [place] 40 mg 00 :00 3 doses, Medical First dose Branch (after last modificati on) on Wed01/07/22 at 1200, Last dose on [place] 01/08/22 at 0000, Routine propofoL IV 2021-0 Yes 5ug/kg/ 5-50 Uni vers infusion 6-14 min mcg/kg/min ity o f 21:35: ?104.3 kg [place] 37 (3.129-31. Medical 29 mL/hr, Branch rounded [...] should be discarded after 12 hours.
furosemide No 40mg 40 mg, Univ ers (LASIX) 01-0615 Slow IV ity of injection 20:45: 15:02 Push, [place] 40 mg 00 :09 DAILY, Medical First dose Branch on Wed01/06/22 at 1545, Until Discontinu ed, Routine ceFEPIme 2021- No 1000mg 1,000 mg, U nivers (MAXIPIME) 01-06 IV ity of 1,000 mg in 19:00: 22:16 Piggyback, [place] NaCl 0.9% 00 :00 Q8H ABX, 4 [...] 01-06 Oral, ity of sodium 18:45: DAILY, [place] (SENOKOT-S) 00 First dose Me dical 8.6-50 mg on Wed Branch per tablet 01/06/22 at 1 tablet 1345, Until Discontinu ed, Routine polyethylen Yes 17g 17 g, Unive rs e glycol 01-06 Enteral, ity of 3350 powder 18:45: DAILY, [place] 17 g 00 First dose Medical on Wed Branch 01/06/22 at 1345, Until Discontinu ed, Routine propofoL IV 2021- No 5ug/kg/ 5-50 Un alexia infusion 01-06-14 min mcg/kg/min ity of 01:12: 18:02 ?104.3 kg [place] 34 :29 (3.129-31. Medical 29 mL/hr, Branch [...] Yes 40mg 40 mg, Univ ers e 01-06 Slow IV ity of (PROTONIX) 01:00: Push, [place] injection 00 Q12H, Medical 40 mg First dose Branch on Wed01/05/22 at 2000, Until Discontinu ed morpHINE (2 Yes 2mg 2 mg, Slow Univers mg/mL) 01-05 IV Push, ity of injection 2 19:16: Q6HPRN, [place] mg 47 Starting Medical on Wed Branch 01/05/22 at 1416, Until Discontinu ed, Routine, Pain (scale 7-10) potassium 2021- No 20meq 20 mEq, IV Univers chloride 20 01-04 Piggyback, i ty of mEq/100 mL 15:00: 18:20 Q2H, 2 [place] (KCL) 20 00 :00 doses, Medical mEq/100 mL First dose [facility] RTU IVPB 20 on [place] mEq 01/04/22 at 1000, Last dose on 01/04/22 at 1200, 100 mL insulin 2021- No 10U 10 Units, [facility] ers glargine 01-04 Subcutaneo ity of (LANTUS 14:00: 15:09 us, DAILY, [place] U-100) 00 :45 First dose Medical injection (after Branch 10 Units last modificati on) on [place] 01/04/22 at 0900, Until Discontinu ed, Routine metoprolol 2021- No 5mg 5 mg, Slow Univers (LOPRESSOR) 01-04 IV Push, ity of injection 5 13:45: 17:13 BID, First [place] mg 00 :45 dose on Medical [place] Branch 01/04/22 at 0845, Until Discontinu ed, Routine QUEtiapine 2021- No 25mg 25 mg, Univ ers (SEROQUEL) 01-0416 Oral, BID, it y of tablet 25 13:45: 13:55 First dose [place] mg 00 :32 (after Medical last Branch modificati on) on [place] 01/04/22 at 0845, Until Discontinu ed, Routine iopamidol 2021- No [id number] 100mL 100 mL, Univers (ISOVUE 01-04 Intravenou ity o f 370-500 mL) 10:15: 08:55 s, ONCE, 1 [place] injection 00 :00 dose, On Medica l 100 mL [place] Branch 01/04/22 at 0515, Routine propofoL IV No 5ug/kg/ 5-50 Un alexia infusion 01-03 min mcg/kg/min ity of 21:04: 21:03 ?104.3 kg [place] 20 :20 (3.129-31. Medical 29 mL/hr, Branch rounded to 3.13-31.29 mL/hr), IV Infusion, TITRATE, Sedation-R ASS score (-1 to -2), Starting on [facility] 01/03/22 at 1604, For 2 days
In [...] over 15 (CNR) Minutes, Q8HPRN, Starting on 01/03/22 at 1546, Until Discontinu ed, Routine, Nausea and Vomiting (N/V) pregabalin Yes 100mg 100 mg, Uni vers (LYRICA) 01-03 Enteral, ity of capsule 100 19:45: TID, First [place] mg 00 dose on Medical Sat Branch 01/03/22 at 1445, Until Discontinu ed, Routine insulin No 10U 10 Units, [facility] ers glargine 01-03 Subcutaneo ity of (LANTUS 19:37: 21:33 us, ONCE, [place] U-100) 00 :00 1 dose, On Medical injection Sat Branch 10 Units 01/03/22 at 1445, Routine furosemide No 40mg 40 mg, Univ ers (LASIX) 01-03 Slow IV ity of injection 19:32: 21:17 Push, [place] 40 mg 00 :00 ONCE, 1 Medical dose, On Branch 01/03/22 at 1445, Routine FENTanyl PF 50ug 50 mcg, Un alexia (SUBLIMAZE 01-03 [...] is advisable.
insulin No 30U 30 Units, [facility] ers glargine 01-03 Subcutaneo ity of (LANTUS 14:00: 19:37 us, DAILY, [place] U-100) 00 :17 First dose Medical injection (after Branch 30 Units last modificati on) on 01/03/22 at 0900, Until Discontinu ed, Routine HYDROmorpho No .5mg 0.5 mg, Un alexia ne [...] be discarded after 12 hours.
FENTanyl PF No 100ug 100 mcg, Univers (SUBLIMAZE 01-02 Slow IV ity o f (PF)) 19:24: 19:34 Push, [place] injection 00 :00 ONCE, 1 Medical 100 mcg dose, On Branch Wed01/02/22 at 1430, Routine meropenem 2021- No 1000mg 1,000 mg, Univers (MERREM) 01-0214 IV ity of 1,000 mg in 19:00: 15:44 Piggyback, [place] NaCl 0.9% 00 :06 Q8H ABX, Medica l (NS) 50 mL First dose Bra nch MINI-BAG on Wed01/02/22 at 1400, Until Discontinu ed, Administer over 3 Hours, 50 mL
Rest ricted use approved by: [email or web address]
R [place] for Anti-Infec tive: Empiric Therapy for Suspected Infection< br>Empiric Therapy Site: Respirator y
Durat ion of therapy: 72 hours Sliding Yes Subcutaneo Univ ers Scale 6-10 us, Q6H, ity of Insulin-Reg 17:00: First dose [place] ular + Fsbg 00 on Wed Medica l Testing 01/02/22 at Branch 1200, Until Discontinu ed, Routine dexMEDEtomi 2021- No .2ug/kg 0.2-1.5 Univers dine 400 01-02 [...] .
furosemide 2021- No 40mg 40 mg, Univ ers (LASIX) 01-02 06-10 Slow IV ity of injection 15:15: 14:43 Push, [place] 40 mg 00 :00 ONCE, 1 Medical [...] ity of bolus 14:10: PRN - SEE [place] infusion 46 INSTRUCTIO Medic al 250 mL [...] Inhalation ity of (DUONEB) 13:00: , Q4H, [place] 0.5 mg-3 00 First dose Medic al mg(2.5 mg (after Branch base)/3 mL last nebulizer modificati solution 3 on) on Wed mL 01/02/22 at 0800, Until Discontinu ed, Routine heparin Yes 5000U 5,000 Univers (porcine) 01-02 Units, ity of injection 13:00: Subcutaneo [place] 5,000 Units 00 us, Q12H, Med ical First dose Branch on Wed01/02/22 at 0800, Until Discontinu ed, Routine insulin 2021- No 20U 20 Units, [facility] ers glargine 01-0210 Subcutaneo ity of (LANTUS 13:00: 14:11 us, BID, [place] U-100) 00 :23 First dose Medical injection on Wed Branch 20 Units 01/02/22 at 0800, Until Discontinu ed, Routine albuterol 2021- No 2.5mg 2.5 mg, Uni vers (PROVENTIL) 01-02 Inhalation i ty of 2.5 mg /3 12:30: 01:18 , Q6H, [facility] (0.083 00 :50 First dose Medi michel [...] of NS 500 mL 12:00: 14:27 from [place] IV 00 :44 1,564.5 mg Medical Piggyback = 15 mg/kg Bran ch RTU 1,500 ?104.3 mg kg), IV Piggyback, Q24H ABX, First dose on Wed01/02/22 at 0700, Until Discontinu ed, Administer over 90 Minutes
Reason for Anti-Infec tive: Empiric Therapy for Suspected Infection< br>Empiric Therapy Site: Respirator y
Durat ion of therapy: 72 hours sodium No 100meq 100 mEq, Univ ers bicarbonate 01-02 Slow IV ity of 1 mEq/mL 11:45: 09:45 Push, [place] (8.4 %) 00 :00 ONCE, 1 Medical injection dose, On Branch 100 mEq Wed01/02/22 at 0645, Routine meropenem 2021- No 1000mg 1,000 mg, Univers (MERREM) 01-02 IV ity of 1,000 mg in 11:15: 12:44 Piggyback, [place] NaCl 0.9% 00 :00 ONCE, 1 Medical [...] maximum allowed dose, contact prescriber .
haloperidol No 5mg 5 mg, Univ ers lactate 01-02 Intramuscu ity o f (HALDOL) 11:00: 09:40 [place], ONCE, [place] injection 5 00 :00 1 dose, On Me dical mg Wed Branch 01/02/22 at 0600, Routine gentamicin No 80mg 80 mg, IV U nivers [...] 00 :00 dose, On Medi michel mg Fri Branch 01/02/22 at 0400, CT LORazepam 2021- No .5mg 0.5 mg, Univ ers (ATIVAN) 01-02 Slow IV ity of injection 08:10: 08:11 Push, [place] 0.5 mg 00 :00 ONCE, 1 Medical dose, On Branch 01/02/22 at 0315, STAT ceFEPIme 2021- No 1g 1 g, IV Unive rs (MAXIPIME) 01-02 Piggyback, it y of 1 g in NaCl 06:30: 07:42 ONCE, 1 [place] 0.9% (NS) 00 :00 dose, On Medica l 100 mL Fri Branch MINI-BAG 01/02/22 at 0130, Administer over 30 [...] ion of Therapy: Other (see Comments) ondansetron 2021- No 4mg 4 mg, Slow Univers (ZOFRAN 12-09 IV Push, ity of (PF)) 05:45: 04:41 ONCE, 1 [place] injection 4 00 :00 dose, On Medi michel mg Tue Branch 12/09/21 at 0045, CT morpHINE (4 No 4mg 4 mg, Slow Univers mg/mL) 12-09 IV Push, ity of injection 4 05:45: 04:41 ONCE, 1 [place] mg 00 :00 dose, On Medical Tue Branch 12/09/21 at 0045, STAT levalbutero 2021- No 1.25mg 1.25 mg, Univers l (XOPENEX) 12-09 Inhalation i ty of nebulizer 05:00: 04:22 , ONCE, 1 [place] solution 00 :00 dose, On Medical 1.25 mg Tue Branch 12/09/21 at 0000, Routine predniSONE 2021-2021- No [id number] 40mg Take 2 Univers 20 mg 3- 03-06 tablets by ity of tablet 00:00: 05:59 mouth [place] 00 :00 daily for Medical 3 days. Branch predniSONE 2021-0 2021- No [id number] 40mg Take 2 Univers 20 mg 3-02 [...] Medica l base)/3 mL needed for [facility] nebulizer Wheezing. solution spironolact Yes 25mg [...] subcutaneo Medical us pen Branch injector metFORMIN Yes 750mg Take [...] as Medica l base)/3 mL needed for [facility] nebulizer Wheezing. solution spironolact Yes 25mg Take [...] Yes 1{tbl} Take 1 Un alexia -acetaminop 3- tablet by ity of hen 10-325 15:03: mouth [place] mg tablet 49 every 8 Medical (eight) Branch hours as needed. cyclobenzap Yes 10mg Take 10 mg Univers rine 5 mg 3-01 by mouth 3 ity of tablet 15:03: (three) [place] 49 times Medical daily. Branch LORazepam 0 Yes .5mg Take 0.5 Univ ers 0.5 mg 3-01 mg by ity of tablet 15:03: mouth 2 [place] 49 (two) Medical times Branch daily as needed. Potassium Yes Take by Unive rs Gluconate 3 mouth ity of 595 mg (99 15:03: weekly. [place] mg) Tab 49 Medical Branch ipratropium Yes 1{ampul 1 Ampule Univers -albuterol 3- e} every 4 ity of 0.5 mg-3 15:03: (four) [place] mg(2.5 mg 49 hours as Medica l base)/3 mL needed for [facility] nebulizer Wheezing. solution spironolact Yes 25mg Take 25 mg Univers one 25 mg -01 by mouth 2 ity of tablet 15:03: (two) [place] 49 times Medical daily. Branch semaglutide Yes inject Univ ers (OZEMPIC) 3 under the ity o f 0.25 mg or 15:03: skin. [place] 0.5 mg(2 49 Medical mg/1.5 mL) Branch PnIj dulaglutide 0 Yes Trulicity U nivers (TRULICITY) 3-01 3 [...] First dose [place] 17 g 00 on [facility] Medical 09/23/21 at Branch 0815, Until Discontinu [...] mouth ity of 12:53: 00:00 every 8 [place] 19 :00 (eight) Medical hours as Branch needed. ondansetron No 4mg 4 mg, Slow Univers (ZOFRAN 09-23 IV Push, ity of (PF)) 10:00: 09:12 ONCE, 1 [place] injection 4 00 :00 dose, On Medi michel mg [facility] 09/23/21 Branch at 0400, Routine ondansetron Yes 4mg 4 mg, Slow Univers (ZOFRAN 09-23 IV Push, ity of (PF)) 04:25: Q6HPRN, [place] injection 4 51 Starting Medi michel mg on Wed [place] 09/22/21 at 2225, Until Discontinu ed, Routine, Nausea and Vomiting (N/V) insulin 2021- Yes 60U 60 Units[facility] Subcutaneo ity o f (LANTUS 03:00: us, QHS, [place] U-100) 00 First dose Medical injection on Wed Branch 60 Units 09/22/21 at 2100, Until Discontinu ed, Routine Sliding 0 Yes Subcutaneo Univ ers Scale 3 us, Q4H, ity of Insulin - 02:45: First dose [place] Lispro 00 (after Medical (HumaLOG) + last Branch Fsbg modificati Testing on) on [facility] 09/22/21 at 2045, Until Discontinu ed, Routine azithromyci 2021- No [id number] 250mg Take 1 Univers n 3-01 03-06 tablet by ity of (ZITHROMAX 00:00: 05:59 mouth [place] Z-ULYSSES) 250 00 :00 daily for Medi michel mg tablet 4 days. [place] azithromyci 2021- No [id number] 250mg Take 1 Univers n 09-23 tablet by ity of (ZITHROMAX 00:00: 05:59 mouth [place] Z-ULYSSES) 250 00 :00 daily for Medi michel mg tablet 4 days. [place] cyclobenzap Yes 5mg 5 mg, Unive rs rine 09-22 Oral, ity of (FLEXERIL) 23:04: TIDPRN[place] tablet 5 mg 26 Starting Medi michel on Wed Branch 09/22/21 at 1704, Until Discontinu ed, Routine, Muscle Spasms Sliding No Subcutaneo Uni vers Scale 09-22 us, TID ity of Insulin - 23:00: 02:39 [place]HS[place] Lispro 00 :34 First dose Medical (HumaLOG) + on Wed [place] Fsbg 09/22/21 at Testing 1700, Until Discontinu ed, Routine dextrose Yes 250mL 250 mL, IV Un alexia 10% (D10W) 09-22 Infusion, ity of bolus 20:39: PRN - SEE [place] infusion 11 INSTRUCTIO Medic al 250 mL , Branch altered mentation with hypoglycem ia glucose [...] or has mental changes. sulfur 2021- No [id number] 5mL 5 mL, Univ ers hexafluorid 09-22 Intravenou i ty of e microsphr 18:45: 19:00 s, ONCE, 1 [place] (LUMASON) 00 :00 dose, On Medica l injection 5 Wed mL 09/22/21 at 1300, Routine
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 approving Restricted medication : ABBILOCO MARY HYDROcodone Yes 1{tbl} 1 tablet, Univers -acetaminop [...] of 2.5 mg /3 14:00: , Q4H, [place] mL (0.083 00 First dose Medi michel [...] ity of Insulin-Reg 13:30: 19:17 First dose [place] ular + Fsbg 00 :38 on [facility] Medica l Testing 09/22/21 at Branch 0730, Until Discontinu ed, Routine nicotine Yes 1{patch 1 Patch, Un alexia (NICODERM) 09-22 } Topical, ity o f 7 mg/24 hr 13:00: Administer [place] patch 1 00 over 24 Medical Patch Hours, Branch Q24H, First dose on Wed09/22/21 at 0700, Until Discontinu ed, Routine pantoprazol Yes 40mg 40 mg, Univ ers e 09-22 Slow IV ity of (PROTONIX) 12:45: Push, [place] injection 00 Q24H, Medical 40 mg First dose Branch on Wed09/22/21 at 0645, Until Discontinu ed dextrose 50 Yes 25mL 25 mL, Univ ers % in water 09-22 Slow IV ity of (D50W) 11:14: Push, PRN, [place] injection 28 Starting Medica l 25 mL on [facility] Branch 09/22/21 at 0514, Until Discontinu ed, CT, Blood Glucose < or = 70 mg/dL and patient is unable to swallow or has mental status changes. albuterol 2021- No 2.5mg 2.5 mg, Uni vers (PROVENTIL) 09-22 Inhalation i ty of 2.5 mg /3 07:45: 07:15 , [place]CE[place] 1 [place] mL (0.083 00 :00 dose, On Medica l %) [facility] nebulizer 09/22/21 at solution 0145, CT 2.5 mg furosemide 2021- No 40mg 40 mg, IV U nivers (LASIX) 09-22 Push, ity of injection 07:30: 06:32 ONCE, 1 [place] 40 mg 00 :00 dose, On Medical [facility] Branch 09/22/21 at 0130, CT methylpredn 2021- No 125mg 125 mg, U nivers isolone sod 09-22 Slow IV ity of succ 07:30: 06:31 Push, ONCE [place] (SOLU-MEDRO 00 :00 NOW, 1 Medica l L) dose, On Branch injection Mon 125 mg 09/22/21 at 0130, CT albuterol 2021- No 2.5mg 2.5 mg, Uni [...] Medical pen Branch injector LORazepam 2020-07 Yes [id number] .5mg Take 1 Un alexia 0.5 mg 2-02 tablet by ity of tablet 00:00: mouth 3 [place] 00 (three) Medical times Branch daily as needed for Nausea and Vomiting (N/V). LORazepam 2020-07 Yes [id number] .5mg Take 1 Un alexia 0.5 mg 2-02 tablet by ity of tablet 00:00: mouth 3 [place] 00 (three) Medical times Branch daily as needed for Nausea and Vomiting (N/V). LORazepam 2020-07- No [id number] .5mg Take 1 U nivers 0.5 mg [...] nch nebulizer Wheezing. solution nystatin 2018-07 Yes [id number] Apply to Un alexia 100,000 1-06 area(s) 2 ity of unit/gram 00:00: (two) [place] cream 00 times Medical daily. Branch nystatin 2018-07 Yes [id number] Apply to Un alexia 100,000 1-06 area(s) 2 ity of unit/gram 00:00: (two) [place] cream 00 times Medical daily. Branch nystatin 2018-07- No [id number] Apply to U nivers 100,000 1-06 03-01 area(s) 2 ity of unit/gram 00:00: 00:00 (two) [place] cream 00 :00 times Medical daily. Branch rosuvastati 2018-07 Yes TK 1 T PO U nivers n 10 mg 0-28 QD ity of tablet 00:00: [place] 00 Medical Branch rosuvastati 2018-07 Yes TK 1 T PO U nivers n 10 mg 0-28 QD ity of tablet 00:00: [place] [facility] Branch rosuvastati 2018- Yes TK 1 T PO U nivers n 10 mg 0-28 QD ity of tablet 00:00: [place] [facility] Branch rosuvastati 2018-07 Yes TK 1 T PO U nivers n 10 mg 0-28 QD ity of tablet 00:00: [place] [facility] Branch rosuvastati 2018-07 Yes TK 1 T PO U nivers n 10 mg 0-28 QD ity of tablet 00:00: [place] [facility] Branch rosuvastati 2018-07 Yes TK 1 T PO U nivers n 10 mg 0-28 QD ity of tablet 00:00: [address] rosuvastati 2018-07 Yes TK 1 T PO U nivers n 10 mg 0-28 QD ity of tablet 00:00: [address] rosuvastati 2018-07 Yes TK 1 T PO U nivers n 10 mg 0-28 QD ity of tablet 00:00: [address] rosuvastati 2018-07 Yes TK 1 T PO U nivers n 10 mg 0-28 QD ity of tablet 00:00: [place] [facility] rosuvastati 2018-07 Yes TK 1 T PO U nivers n 10 mg 0-28 QD ity of tablet 00:00: [place] [facility] rosuvastati 2018-07 Yes TK 1 T PO U nivers n 10 mg 0-28 QD ity of tablet 00:00: [address] rosuvastati 2018-07 Yes TK 1 T PO U nivers n 10 mg 0-28 QD ity of tablet 00:00: [place] [facility] Branch rosuvastati 2018-07 Yes TK 1 T PO U nivers n 10 mg 0-28 QD ity of tablet 00:00: [address] Branch rosuvastati 2018-07 Yes TK 1 T PO U nivers n 10 mg 0-28 QD ity of tablet 00:00: [address] rosuvastati 2018-07 Yes TK 1 T PO U nivers n 10 mg 0-28 QD ity of tablet 00:00: [address] rosuvastati 2018- Yes TK 1 T PO U nivers n 10 mg 0-28 QD ity of tablet 00:00: Medical Branch rosuvastati 2018-07 Yes TK 1 T PO U nivers n 10 mg 0-28 QD ity of tablet 00:00: Medical Branch rosuvastati 2018-07 Yes TK 1 T PO U nivers n 10 mg 0-28 QD ity of tablet 00:00: [place] [facility] rosuvastati 2018-07 Yes TK 1 T PO U nivers n 10 mg 0-28 QD ity of tablet 00:00: [place] [facility] rosuvastati 2018-07 Yes TK 1 T PO U nivers n 10 mg 0-28 QD ity of tablet 00:00: [place] [facility] Branch rosuvastati 2018-07 Yes TK 1 T PO U nivers n 10 mg 0-28 QD ity of tablet 00:00: [place] [facility] Branch rosuvastati 2018-07 Yes TK 1 T PO U nivers n 10 mg 0-28 QD ity of tablet 00:00: [place] [facility] ofloxacin 2018-07 Yes INSTIL 2 [...] 20 mg 0-09 ity of tablet 00:00: [place] 00 Medical Branch furosemide 2018-07 Yes Univers 20 mg 0-09 ity of tablet 00:00: [place] 00 Medical Branch furosemide 2018-07 Yes TK 1 T PO Un alexia 40 mg 0-09 QAM ity of tablet 00:00: [place] [facility] furosemide 2018-07 Yes TK 1 T PO Un alexia 40 mg 0-09 QAM ity of tablet 00:00: [place] 00 Medical Branch furosemide 2018-07 Yes Univers 20 mg 0-09 ity of tablet 00:00: [place] 00 Medical Branch furosemide 2018-07 Yes Univers 20 mg 0-09 ity of tablet 00:00: [place] 00 Medical Branch furosemide 2018-07 Yes Univers 20 mg 0-09 ity of tablet 00:00: [place] 00 Medical Branch furosemide 2018-07 Yes Univers 20 mg 0-09 ity of tablet 00:00: [place] 00 Medical Branch furosemide 2018-07 Yes Univers 20 mg 0-09 ity of tablet 00:00: [place] 00 Medical Branch furosemide 2018-07- No Univer [...] 36 Medical mg/1.5 mL) Branch PnIj HYDROcodone Yes 1{tbl} Take 1 Un alexia [...] Medical mg/1.5 mL) Branch PnIj fluconazole Yes [id number] 100mg Take 1 Univers 100 mg 3-26 tablet by ity of tablet 00:00: mouth [place] 00 daily. Medical Branch fluconazole Yes [id number] 100mg Take 1 Univers 100 mg 3-26 tablet by ity of tablet 00:00: mouth [place] 00 daily. Medical Branch fluconazole Yes [id number] 100mg Take 1 Univers 100 mg 3-26 tablet by ity of tablet 00:00: mouth [place] 00 daily. [facility] Branch fluconazole 2019-0 Yes [id number] 100mg Take 1 Univers 100 mg 3-26 tablet by ity of tablet 00:00: mouth [place] 00 daily. Medical Branch fluconazole 2019-0 Yes [id number] 100mg Take 1 Univers 100 mg 3-26 tablet by ity of tablet 00:00: mouth [place] 00 daily. [facility] Branch fluconazole 2019-0 Yes [id number] 100mg Take 1 Univers 100 mg 3-26 tablet by ity of tablet 00:00: mouth [place] 00 daily. [facility] Branch fluconazole 2019-0 Yes [id number] 100mg Take 1 Univers 100 mg 3-26 tablet by ity of tablet 00:00: mouth [place] 00 daily. [facility] Branch fluconazole 2019-0 Yes [id number] 100mg Take 1 Univers 100 mg 3-26 tablet by ity of tablet 00:00: mouth [place] 00 daily. [facility] Branch fluconazole 2018-0 Yes [id number] 100mg Take 1 Univers 100 mg 3-26 tablet by ity of tablet 00:00: mouth [place] 00 daily. [facility] Branch fluconazole 2018-2021- No [id number] 100mg Take 1 Univers 100 mg 3-26 07-09 tablet by ity of tablet 00:00: 00:00 mouth [place] 00 :00 daily. Medical Branch CLOTRIMAZOL 2017- Yes APPLY TO Un alexia E 1 % 0-11 THE ity of topical 00:00: AFFECTED [place] cream 00 AREA TWICE Medical DAILY Branch CLOTRIMAZOL 2017-07 Yes APPLY TO Un alexia E 1 % 0-11 THE ity of topical 00:00: AFFECTED [place] cream 00 AREA TWICE Medical DAILY Branch CLOTRIMAZOL 2017-07- No APPLY TO U nivers E 1 % 0-11 03-01 THE ity of topical 00:00: 00:00 AFFECTED [place] cream 00 :00 AREA TWICE Medical DAILY Branch Clotrimazol 2018-0 Yes 1mL 1 mL 3 Univ ers e, Bulk, -08 (three) ity of Powd 00:00: times [place] [...] 1 mL 3 Uni vers e, Bulk, 6-08 01-16 (three) ity of Powd 00:00: 00:00 times [...] mg 00:00: [place] [facility] Branch HEMOCYTE-PL 2017-0 Yes Univer s US 106 mg 3-02 ity of iron- 1 mg 00:00: [place] [facility] HEMOCYTE-PL 2018-0 Yes Univer s US 106 mg 3-02 ity of iron- 1 mg 00:00: [place] [facility] HEMOCYTE-PL 2018-0 Yes Univer s US 106 mg 3-02 ity of iron- 1 mg 00:00: [place] [facility] HEMOCYTE-PL 2017-0 Yes Univer s US 106 mg 3-02 ity of iron- 1 mg 00:00: [place] [facility] HEMOCYTE-PL 2017-0 Yes Univer s US 106 mg 3-02 ity of iron- 1 mg 00:00: [place] [facility] HEMOCYTE-PL 2017-0 Yes Univer s US 106 mg 3-02 ity of iron- 1 mg 00:00: [place] [facility] HEMOCYTE-PL 2017-0 Yes Univer s US 106 mg 3-02 ity of iron- 1 mg 00:00: [place] [facility] HEMOCYTE-PL 2017-0 Yes Univer s US 106 mg 3-02 [...] mg 2-28 ity of tablet 00:00: [place] [facility] Branch paroxetine 2018-0 Yes Univers 40 mg 2-28 ity of tablet 00:00: [place] [address] Medical Branch paroxetine 2018-0 Yes Univers 40 mg 2-28 ity of tablet 00:00: [place] [address] Medical Branch paroxetine 2018-0 Yes Univers 40 mg 2-28 ity of tablet 00:00: [place] [address] Medical Branch paroxetine 2018-0 Yes Univers 40 mg 2-28 ity of tablet 00:00: [place] [address] Medical Branch paroxetine 2018-0 Yes Univers 40 mg 2-28 ity of tablet 00:00: [place] [address] Medical Branch paroxetine 2018-0 Yes Univers 40 mg 2-28 ity of tablet 00:00: [place] [address] Medical Branch paroxetine 2018-0 Yes Univers 40 mg 2-28 ity of tablet 00:00: [address] Branch paroxetine 2018-0 Yes Univers 40 mg 2-28 ity of tablet 00:00: [address] Branch paroxetine 2018-0 Yes Univers 40 mg 2-28 ity of tablet 00:00: [address] Branch paroxetine 2018-0 Yes Univers 40 mg 2-28 ity of tablet 00:00: [address] Branch paroxetine 2018-0 Yes Univers 40 mg 2-28 ity of tablet 00:00: [address] paroxetine 2018-0 Yes Univers 40 mg 2-28 ity of tablet 00:00: [address] paroxetine 2018-0 Yes Univers 40 mg 2-28 ity of tablet 00:00: [address] Branch paroxetine 2018-0 Yes Univers 40 mg 2-28 ity of tablet 00:00: [address] Branch paroxetine 2018-0 Yes Univers 40 mg 2-28 ity of tablet 00:00: [place] [address] Medical Branch paroxetine 2018-0 Yes Univers 40 mg 2-28 ity of tablet 00:00: [address] Branch paroxetine 2018-0 Yes Univers 40 mg 2-28 ity of tablet 00:00: [address] paroxetine 2018-0 Yes Univers 40 mg 2-28 ity of tablet 00:00: [address] Branch paroxetine 2018-0 Yes Univers 40 mg 2-28 ity of tablet 00:00: [place] [address] Medical Branch paroxetine 2018-0 Yes Univers 40 mg 2-28 ity of tablet 00:00: [place] [address] Medical Branch paroxetine 2018-0 Yes Univers 40 mg 2-28 ity of tablet 00:00: [place] 00 Medical Branch LEVEMIR 2018-0 Yes INJECT 5 Univer s FLEXTOUCH 1-09 UNITS SC ity of 100 unit/mL 00:00: QD [place] (3 mL) 00 Medical injection Branch LEVEMIR 2018-0 Yes INJECT 5 Univer s FLEXTOUCH 1-09 UNITS SC ity of 100 unit/mL 00:00: QD [place] (3 mL) 00 Medical injection Branch LEVEMIR 2017-0 Yes INJECT 5 Univer s FLEXTOUCH 1-09 [...] (3 mL) 00 Medical injection Branch LEVEMIR 2018-0 Yes 60U 60 Units. Unive rs FLEXTOUCH 1-09 ity of 100 unit/mL 00:00: [place] (3 mL) 00 Medical injection Branch LEVEMIR 2018-0 Yes 60U 60 Units. Unive rs FLEXTOUCH 1-09 ity of 100 unit/mL 00:00: [place] (3 mL) 00 Medical injection Branch LEVEMIR 2018-0 Yes 60U 60 Units. Unive rs FLEXTOUCH 1-09 ity of 100 unit/mL 00:00: [place] (3 mL) 00 Medical injection Branch LEVEMIR 2018-0 Yes 60U 60 Units. Unive rs FLEXTOUCH 1-09 ity of 100 unit/mL 00:00: [place] (3 mL) 00 Medical injection Branch LEVEMIR 2018-0 Yes 60U 60 Units. Unive rs FLEXTOUCH [...] as solution 00 :00 times Medical daily. [place] ranitidine 2017-0 Yes TK 1 T PO Un alexia 300 mg 4-18 BID ity of tablet 00:00: [place] [facility] Branch ranitidine 2017 Yes TK 1 T PO Un alexia 300 mg 4-18 BID ity of tablet 00:00: [place] [facility] ranitidine 2017 Yes TK 1 T PO Un alexia 300 mg 4-18 BID ity of tablet 00:00: [place] [facility] ranitidine 2017 Yes TK 1 T PO Un alexia 300 mg 4-18 BID ity of tablet 00:00: [place] [facility] ranitidine 2017 Yes TK 1 T PO Un alexia 300 mg 4-18 BID ity of tablet 00:00: [place] [facility] ranitidine 2017 Yes TK 1 T PO Un alexia 300 mg 4-18 BID ity of tablet 00:00: [place] [facility] Branch ranitidine Yes TK 1 T PO Un alexia 300 mg 4-18 BID ity of tablet 00:00: [place] [facility] Branch ranitidine Yes TK 1 T PO Un alexia 300 mg 4-18 BID ity of tablet 00:00: [place] [facility] ranitidine Yes TK 1 T PO Un alexia 300 mg 4-18 BID ity of tablet 00:00: [place] [facility] Branch ranitidine Yes TK 1 T PO Un alexia 300 mg 4-18 BID ity of tablet 00:00: [place] [facility] ranitidine Yes TK 1 T PO Un alexia 300 mg 4-18 BID ity of tablet 00:00: [place] [facility] ranitidine Yes TK 1 T PO Un alexia 300 mg 4-18 BID ity of tablet 00:00: [place] [facility] ranitidine Yes TK 1 T PO Un alexia 300 mg 4-18 BID ity of tablet 00:00: [place] [facility] ranitidine 0 2022- No TK 1 T PO U nivers 300 mg 4-18 08-05 BID ity of tablet 00:00: 00:00 [place] 00 :00 Medical Branch QUEtiapine Yes 50mg Take 1 Tab U nivers (SEROQUEL) 9-26 by mouth ity o f 50 mg 00:00: at [place] tablet 00 bedtime. Medical Branch QUEtiapine 2015-0 [...] [place] tablet 00 bedtime. Medical Branch paroxetine 2014-0 Yes 40mg Take 2 Unive rs (PAXIL) 20 9-03 Tabs by ity of mg tablet 00:00: mouth [place] 00 daily. Medical Branch paroxetine 2014-0 Yes 40mg Take 2 Unive rs (PAXIL) 20 9-03 Tabs by ity of mg tablet 00:00: mouth [place] 00 daily. Medical Branch paroxetine 2021- No 40mg Take 2 Univ ers (PAXIL) 20 03-28 03-01 Tabs by ity o f mg tablet 00:00: 00:00 mouth [place] 00 :00 daily. Medical Branch pregabalin 0 Yes 300mg Take [...] 300mg Take 1 Cap Univers (LYRICA) 6-13 -16 by mouth ity of 300 mg 00:00: 00:00 at [place] capsule 00 :00 bedtime. Medical Branch Immunizations Ordered Filled Immunization Date Status Comments [facility] e Immunization Name Name Pneumococcal 2017-06-08 Completed University o f Polysaccharide, 00:00:00 [facility] [place] ical PPSV23 (PNEUMOVAX) Branch Influenza Virus 2017-06-08 Completed Universit y of Vaccine Quad IM 3+ 00:00:00 [facility] Branch Pneumococcal 2017-06-08 Completed [place] o f Polysaccharide, 00:00:00 [facility] [place] ical PPSV23 (PNEUMOVAX) Branch Influenza Virus 2017-06-08 Completed Universit y of Vaccine Quad IM 3+ 00:00:00 [facility] Pneumococcal 2017-06-08 Completed University o f Polysaccharide, 00:00:00 [place] Med ical PPSV23 (PNEUMOVAX) Branch Influenza Virus 2017-06-08 Completed Universit y of Vaccine Quad IM 3+ 00:00:00 [facility] Pneumococcal 2017-06-08 Completed University o f Polysaccharide, 00:00:00 [place] Med ical PPSV23 (PNEUMOVAX) Branch Influenza Virus 2017-06-08 Completed Universit y of Vaccine Quad IM 3+ 00:00:00 [facility] Pneumococcal 2017-06-08 Completed University o f Polysaccharide, 00:00:00 [place] Med ical PPSV23 (PNEUMOVAX) Branch Influenza Virus 2017-06-08 Completed Universit y of Vaccine Quad IM 3+ 00:00:00 [facility] Pneumococcal 2017-06-08 Completed University o f Polysaccharide, 00:00:00 [place] Med ical PPSV23 (PNEUMOVAX) Branch Influenza Virus 2017-06-08 Completed Universit y of Vaccine Quad IM 3+ 00:00:00 [facility] Pneumococcal 2017-06-08 Completed University o f Polysaccharide, 00:00:00 [place] Med ical PPSV23 (PNEUMOVAX) Branch Influenza Virus 2017-06-08 Completed Universit y of Vaccine Quad IM 3+ 00:00:00 [facility] Pneumococcal 2017-06-08 Completed University o f Polysaccharide, 00:00:00 [place] Med ical PPSV23 (PNEUMOVAX) Branch Influenza Virus 2017-06-08 Completed Universit y of Vaccine Quad IM 3+ 00:00:00 [facility] Pneumococcal 2017-06-08 Completed University o f Polysaccharide, 00:00:00 [place] Med ical PPSV23 (PNEUMOVAX) Branch Influenza Virus 2017-06-08 Completed Universit y of Vaccine Quad IM 3+ 00:00:00 [facility] Pneumococcal 2017-06-08 Completed University o f Polysaccharide, 00:00:00 [place] Med ical PPSV23 (PNEUMOVAX) Branch Influenza Virus 2017-06-08 Completed Universit y of Vaccine Quad IM 3+ 00:00:00 [facility] Pneumococcal 2017-06-08 Completed University o f Polysaccharide, 00:00:00 [place] Med ical PPSV23 (PNEUMOVAX) Branch Influenza Virus 2017-06-08 Completed Universit y of Vaccine Quad IM 3+ 00:00:00 [facility] Pneumococcal 2017-06-08 Completed University o f Polysaccharide, 00:00:00 [place] Med ical PPSV23 (PNEUMOVAX) Branch Influenza Virus 2017-06-08 Completed Universit y of Vaccine Quad IM 3+ 00:00:00 [facility] Pneumococcal 2017-06-08 Completed University o f Polysaccharide, 00:00:00 [place] Med ical PPSV23 (PNEUMOVAX) Branch Influenza Virus 2017-06-08 Completed Universit y of Vaccine Quad IM 3+ 00:00:00 [facility] Pneumococcal 2017-06-08 Completed University o f Polysaccharide, 00:00:00 [place] Med ical PPSV23 (PNEUMOVAX) Branch Influenza Virus 2017-06-08 Completed Universit y of Vaccine Quad IM 3+ 00:00:00 [facility] Pneumococcal 2017-06-08 Completed University o f Polysaccharide, 00:00:00 [place] Med ical PPSV23 (PNEUMOVAX) Branch Influenza Virus 2017-06-08 Completed Universit y of Vaccine Quad IM 3+ 00:00:00 [facility] Pneumococcal 2017-06-08 Completed University o f Polysaccharide, 00:00:00 [place] Med ical PPSV23 (PNEUMOVAX) Branch Influenza Virus 2017-06-08 Completed Universit y of Vaccine Quad IM 3+ 00:00:00 [facility] Pneumococcal 2017-06-08 Completed University o f Polysaccharide, 00:00:00 [place] Med ical PPSV23 (PNEUMOVAX) Branch Influenza Virus 2017-06-08 Completed Universit y of Vaccine Quad IM 3+ 00:00:00 [facility] Pneumococcal 2017-06-08 Completed University o f Polysaccharide, 00:00:00 [place] Med ical PPSV23 (PNEUMOVAX) Branch Influenza Virus 2017-06-08 Completed Universit y of Vaccine Quad IM 3+ 00:00:00 [facility] Pneumococcal 2017-06-08 Completed University o f Polysaccharide, 00:00:00 [place] Med ical PPSV23 (PNEUMOVAX) Branch Influenza Virus 2017-06-08 Completed Universit y of Vaccine Quad IM 3+ 00:00:00 [facility] Pneumococcal 2017-06-08 Completed University o f Polysaccharide, 00:00:00 [place] Med ical PPSV23 (PNEUMOVAX) Branch Influenza Virus 2017-06-08 Completed Universit y of Vaccine Quad IM 3+ 00:00:00 [facility] Pneumococcal 2017-06-08 Completed University o f Polysaccharide, 00:00:00 [place] Med ical PPSV23 (PNEUMOVAX) Branch Influenza Virus 2017-06-08 Completed Universit y of Vaccine Quad IM 3+ 00:00:00 [facility] Pneumococcal 2017-06-08 Completed University o f Polysaccharide, 00:00:00 [facility] [place] ical PPSV23 (PNEUMOVAX) Branch Influenza Virus 2017-06-08 Completed Universit y of Vaccine Quad IM 3+ 00:00:00 [facility] Influenza Virus 2015-06-20 Completed Universit y of Vaccine Quad IM 3+ 00:00:00 [facility] Influenza Virus 2015-06-20 Completed Universit y of Vaccine Quad IM 3+ 00:00:00 [facility] Influenza Virus 2015-06-20 Completed Universit y of Vaccine Quad IM 3+ 00:00:00 [facility] Influenza Virus 2015-06-20 Completed Universit y of Vaccine Quad IM 3+ 00:00:00 [facility] Influenza Virus 2015-06-20 Completed Universit y of Vaccine Quad IM 3+ 00:00:00 [facility] Influenza Virus 2015-06-20 Completed Universit y of Vaccine Quad IM 3+ 00:00:00 [facility] Influenza Virus 2015-06-20 Completed Universit y of Vaccine Quad IM 3+ 00:00:00 [facility] Influenza Virus 2015-06-20 Completed Universit y of Vaccine Quad IM 3+ 00:00:00 [facility] Influenza Virus 2015-06-20 Completed Universit y of Vaccine Quad IM 3+ 00:00:00 [facility] Influenza Virus 2015-06-20 Completed Universit y of Vaccine Quad IM 3+ 00:00:00 [facility] Influenza Virus 2015-06-20 Completed Universit y of Vaccine Quad IM 3+ 00:00:00 [facility] Influenza Virus 2015-06-20 Completed Universit y of Vaccine Quad IM 3+ 00:00:00 [facility] Influenza Virus 2015-06-20 Completed Universit y of Vaccine Quad IM 3+ 00:00:00 [facility] Influenza Virus 2015-06-20 Completed Universit y of Vaccine Quad IM 3+ 00:00:00 [facility] Influenza Virus 2015-06-20 Completed Universit y of Vaccine Quad IM 3+ 00:00:00 [facility] Influenza Virus 2015-06-20 Completed Universit y of Vaccine Quad IM 3+ 00:00:00 [facility] Influenza Virus 2015-06-20 Completed Universit y of Vaccine Quad IM 3+ 00:00:00 [facility] Influenza Virus 2015-06-20 Completed Universit y of Vaccine Quad IM 3+ 00:00:00 [facility] Influenza Virus 2015-06-20 Completed Universit y of Vaccine Quad IM 3+ 00:00:00 [facility] Influenza Virus 2015-06-20 Completed Universit y of Vaccine Quad IM 3+ 00:00:00 [facility] Influenza Virus 2015-06-20 Completed Universit y of Vaccine Quad IM 3+ 00:00:00 [facility] Influenza Virus 2015-06-20 Completed Universit y of Vaccine Quad IM 3+ 00:00:00 [facility] Pneumococcal 2014-07-31 Completed University o f Polysaccharide, 00:00:00 [place] Med ical PPSV23 (PNEUMOVAX) Branch Influenza Virus 2014-07-31 Completed Universit y of Vaccine Quad IM 3+ 00:00:00 [facility] TDAP 2014-07-31 Completed University of 00:00:00 [facility] Pneumococcal 2014-07-31 Completed University o f Polysaccharide, 00:00:00 [place] Med ical PPSV23 (PNEUMOVAX) Branch Influenza Virus 2014-07-31 Completed Universit y of Vaccine Quad IM 3+ 00:00:00 [facility] TDAP 2014-07-31 Completed University of 00:00:00 [facility] Pneumococcal 2014-07-31 Completed University o f Polysaccharide, 00:00:00 [place] Med ical PPSV23 (PNEUMOVAX) Branch Influenza Virus 2014-07-31 Completed Universit y of Vaccine Quad IM 3+ 00:00:00 [facility] TDAP 2014-07-31 Completed University of 00:00:00 [facility] Pneumococcal 2014-07-31 Completed University o f Polysaccharide, 00:00:00 [place] Med ical PPSV23 (PNEUMOVAX) Branch Influenza Virus 2014-07-31 Completed Universit y of Vaccine Quad IM 3+ 00:00:00 [facility] TDAP 2014-07-31 Completed University of 00:00:00 [facility] Pneumococcal 2014-07-31 Completed University o f Polysaccharide, 00:00:00 [place] Med ical PPSV23 (PNEUMOVAX) Branch Influenza Virus 2014-07-31 Completed Universit y of Vaccine Quad IM 3+ 00:00:00 [facility] TDAP 2014-07-31 Completed University of 00:00:00 [facility] Pneumococcal 2014-07-31 Completed University o f Polysaccharide, 00:00:00 [place] Med ical PPSV23 (PNEUMOVAX) Branch Influenza Virus 2014-07-31 Completed Universit y of Vaccine Quad IM 3+ 00:00:00 [facility] TDAP 2014-07-31 Completed University of 00:00:00 [facility] [facility] Pneumococcal 2014-07-31 Completed University o f Polysaccharide, 00:00:00 [place] [facility] PPSV23 (PNEUMOVAX) Branch Influenza Virus 2014-07-31 Completed Universit y of Vaccine Quad IM 3+ 00:00:00 [facility] TDAP 2014-07-31 Completed University of 00:00:00 [facility] Pneumococcal 2014-07-31 Completed University o f Polysaccharide, 00:00:00 [place] [facility] PPSV23 (PNEUMOVAX) Branch Influenza Virus 2014-07-31 Completed Universit y of Vaccine [facility] IM 3+ 00:00:00 [facility] TDAP 2014-07-31 Completed University of 00:00:00 [facility] Pneumococcal 2014-07-31 Completed University o f Polysaccharide, 00:00:00 [place] [facility] PPSV23 (PNEUMOVAX) Branch Influenza Virus 2014-07-31 Completed Universit y of Vaccine [facility] IM 3+ 00:00:00 [facility] TDAP 2014-07-31 Completed University of 00:00:00 [facility] Pneumococcal 2014-07-31 Completed University o f Polysaccharide, 00:00:00 [place] [facility] PPSV23 (PNEUMOVAX) Branch Influenza Virus 2014-07-31 Completed Universit y of Vaccine [facility] IM 3+ 00:00:00 [facility] TDAP 2014-07-31 Completed University of 00:00:00 [facility] Pneumococcal 2014-07-31 Completed University o f Polysaccharide, 00:00:00 [place] [facility] PPSV23 (PNEUMOVAX) Branch Influenza Virus 2014-07-31 Completed Universit y of Vaccine [facility] IM 3+ 00:00:00 [facility] TDAP 2014-07-31 Completed University of 00:00:00 [facility] Pneumococcal 2014-07-31 Completed University o f Polysaccharide, 00:00:00 [place] [facility] PPSV23 (PNEUMOVAX) Branch Influenza Virus 2014-07-31 Completed Universit y of Vaccine [facility] IM 3+ 00:00:00 [facility] TDAP 2014-07-31 Completed University of 00:00:00 [facility] Pneumococcal 2014-07-31 Completed University o f Polysaccharide, 00:00:00 [place] [facility] PPSV23 (PNEUMOVAX) Branch Influenza Virus 2014-07-31 Completed Universit y of Vaccine [facility] IM 3+ 00:00:00 [facility] TDAP 2014-07-31 Completed University of 00:00:00 [facility] Pneumococcal 2014-07-31 Completed University o f Polysaccharide, 00:00:00 [place] [facility] PPSV23 (PNEUMOVAX) Branch Influenza Virus 2014-07-31 Completed Universit y of Vaccine [facility] IM 3+ 00:00:00 [facility] TDAP 2014-07-31 Completed University of 00:00:00 [facility] Pneumococcal 2014-07-31 Completed University o f Polysaccharide, 00:00:00 [place] [facility] PPSV23 (PNEUMOVAX) Branch Influenza Virus 2014-07-31 Completed Universit y of Vaccine [facility] IM 3+ 00:00:00 [facility] TDAP 2014-07-31 Completed University of 00:00:00 [facility] Pneumococcal 2014-07-31 Completed University o f Polysaccharide, 00:00:00 [place] [facility] PPSV23 (PNEUMOVAX) Branch Influenza Virus 2014-07-31 Completed Universit y of Vaccine [facility] IM 3+ 00:00:00 [facility] TDAP 2014-07-31 Completed University of 00:00:00 [facility] Pneumococcal 2014-07-31 Completed University o f Polysaccharide, 00:00:00 [place] [facility] PPSV23 (PNEUMOVAX) Branch Influenza Virus 2014-07-31 Completed Universit y of Vaccine [facility] IM 3+ 00:00:00 [facility] TDAP 2014-07-31 Completed University of 00:00:00 [facility] Pneumococcal 2014-07-31 Completed University o f Polysaccharide, 00:00:00 [place] [facility] PPSV23 (PNEUMOVAX) Branch Influenza Virus 2014-07-31 Completed Universit y of Vaccine [facility] IM 3+ 00:00:00 [facility] TDAP 2014-07-31 Completed University of 00:00:00 [facility] Pneumococcal 2014-07-31 Completed University o f Polysaccharide, 00:00:00 [place] [facility] PPSV23 (PNEUMOVAX) Branch Influenza Virus 2014-07-31 Completed Universit y of Vaccine [facility] IM 3+ 00:00:00 [facility] TDAP 2014-07-31 Completed University of 00:00:00 [facility] Pneumococcal 2014-07-31 Completed University o f Polysaccharide, 00:00:00 [place] [facility] PPSV23 (PNEUMOVAX) Branch Influenza Virus 2014-07-31 Completed Universit y of Vaccine [facility] IM 3+ 00:00:00 [facility] TDAP 2014-07-31 Completed University of 00:00:00 [facility] Pneumococcal 2014-07-31 Completed University o f Polysaccharide, 00:00:00 [place] [facility] PPSV23 (PNEUMOVAX) Branch Influenza Virus 2014-07-31 Completed Universit y of Vaccine [facility] IM 3+ 00:00:00 [facility] TDAP 2014-07-31 Completed University of 00:00:00 [facility] Pneumococcal 2014-07-31 Completed University o f Polysaccharide, 00:00:00 [place] [facility] PPSV23 (PNEUMOVAX) Branch Influenza Virus 2014-07-31 Completed Universit y of Vaccine [facility] IM 3+ 00:00:00 [facility] TDAP 2014-07-31 Completed University of 00:00:00 [facility] Vital Signs Vital Name Observation Time Observation Value Comments Source Systolic blood 2022-09-09 14:30:00 105 mm[Hg] Univer sity of pressure [facility] Diastolic blood 2022-09-09 14:30:00 78 mm[Hg] Unive rsity of pressure [facility] Heart rate 2022-09-09 14:30:00 95 /min [facility] Body temperature 2022-09-09 14:30:00 37.22 Laly [facility] ersity of [facility] Respiratory rate 2022-09-09 14:30:00 12 /min [facility] O[facility] saturation in 2022-09-09 14:30:00 93 /min University of Arterial blood by [facility] michel Pulse oximetry Branch Body height 2022-09-09 12:41:00 152.4 cm [facility] Body weight 2022-09-09 12:41:00 98.431 kg [facility] BMI 2022-09-09 12:41:00 42.38 kg/m2 [facility] [place] [facility] Systolic blood 2022-08-10 22:08:00 129 mm[Hg] Univer sity of pressure [facility] Diastolic blood 2022-08-10 22:08:00 76 mm[Hg] Unive rsity of pressure [facility] Heart rate 2022-08-10 22:08:00 107 /min [facility] Body temperature 2022-08-10 22:08:00 37.17 Laly Univ ersity [facility] Respiratory rate 2022-08-10 22:08:00 15 /min Univ ersity of [facility] Oxygen saturation in 2022-08-10 22:08:00 96 /min University of Arterial blood by [facility] Pulse oximetry Branch Body weight 2022-08-10 09:00:00 98.5 kg [facility] BMI 2022-08-10 09:00:00 41.03 kg/m2 [facility] Body height 2022-08-05 06:47:00 154.9 cm [facility] [place] [facility] Systolic blood 2022-06-05 05:00:00 96 mm[Hg] Univer sity of pressure [facility] Diastolic blood 2022-06-05 05:00:00 66 mm[Hg] Unive rsity of pressure [facility] Heart rate 2022-06-05 05:00:00 82 /min [facility] Respiratory rate 2022-06-05 05:00:00 13 /min Univ ersity of [facility] Oxygen saturation in 2022-06-05 05:00:00 97 /min University of Arterial blood by [facility] Pulse oximetry Branch Body temperature 2022-06-05 02:51:00 36.33 Laly Univ ersity of [place] [facility] Body height 2022-06-05 02:51:00 154.9 cm [facility] Body weight 2022-06-05 02:51:00 97.523 kg [facility] [place] [facility] BMI 2022-06-05 02:51:00 40.62 kg/m2 [facility] [place] [facility] Systolic blood 2022-05-13 07:00:00 127 mm[Hg] Univer sity of pressure [facility] Diastolic blood 2022-05-13 07:00:00 84 mm[Hg] Unive rsity of pressure [facility] Heart rate 2022-05-13 07:00:00 90 /min [facility] Respiratory rate 2022-05-13 07:00:00 14 /min Univ ersity of [facility] Oxygen saturation in 2022-05-13 07:00:00 97 /min University of Arterial blood by [place] [employer] michel Pulse oximetry Branch Body temperature 2022-05-13 04:01:00 36.56 Laly Univ ersity [facility] [place] [facility] Body height 2022-05-13 04:01:00 154.9 cm [facility] Body weight 2022-05-13 04:01:00 95.255 kg [facility] [place] [facility] BMI 2022-05-13 04:01:00 39.68 kg/m2 [facility] [place] [facility] Systolic blood 2022-05-02 07:00:00 147 mm[Hg] Univer sity of pressure [facility] Diastolic blood 2022-05-02 07:00:00 90 mm[Hg] Unive rsity of pressure [facility] Heart rate 2022-05-02 07:00:00 86 /min [facility] [place] [facility] Respiratory rate 2022-05-02 07:00:00 17 /min Univ ersity [facility] Oxygen saturation in 2022-05-02 07:00:00 98 /min University of Arterial blood by [place] [employer] michel Pulse oximetry Branch Body temperature 2022-05-02 05:21:00 36.44 Laly Univ ersity [facility] [place] [facility] Body height 2022-05-02 05:21:00 154.9 cm [facility] Body weight 2022-05-02 05:21:00 95.255 kg [facility] [place] [facility] BMI 2022-05-02 05:21:00 39.68 kg/m2 [facility] [place] [facility] Systolic blood 2022-04-29 05:36:00 133 mm[Hg] Univer sity of pressure [facility] Diastolic blood 2022-04-29 05:36:00 85 mm[Hg] Unive rsity of pressure [facility] Heart rate 2022-04-29 05:36:00 89 /min [facility] Respiratory rate 2022-04-29 05:36:00 22 /min Univ ersity [facility] [place] [facility] Oxygen saturation in 2022-04-29 05:36:00 100 /min University of Arterial blood by [facility] michel Pulse oximetry Branch Body temperature 2022-04-29 02:44:00 36.56 Laly Univ ersity [facility] [place] [facility] Body height 2022-04-29 02:44:00 154.9 cm [facility] [place] [facility] Body weight 2022-04-29 02:44:00 95.255 kg [facility] [place] [facility] BMI 2022-04-29 02:44:00 39.68 kg/m2 [facility] [place] [facility] Systolic blood 2022-02-27 21:00:00 116 mm[Hg] Univer sity of pressure [facility] Diastolic blood 2022-02-27 21:00:00 74 mm[Hg] Unive rsity of pressure [facility] Heart rate 2022-02-27 21:00:00 89 /min [facility] Body temperature 2022-02-27 21:00:00 36.61 Laly Univ [facility] [place] [facility] Respiratory rate 2022-02-27 21:00:00 18 /min Univ ersity [facility] Oxygen saturation in 2022-02-27 21:00:00 98 /min University of Arterial blood by [facility] Pulse oximetry Branch Body weight 2022-02-23 13:00:00 92.987 kg [facility] BMI 2022-02-23 13:00:00 38.73 kg/m2 [facility] Body height 2022-02-21 01:00:00 154.9 cm [facility] Body temperature 2022-02-17 21:50:00 37.17 Laly Univ [facility] Heart rate 2022-02-17 21:42:00 77 /min [facility] [place] [facility] Respiratory rate 2022-02-17 21:42:00 18 /min Univ [facility] Oxygen saturation in 2022-02-17 21:42:00 94 /min University of Arterial blood by [facility] michel Pulse oximetry Branch Systolic blood 2022-02-17 10:00:00 122 mm[Hg] Univer sity of pressure [facility] Diastolic blood 2022-02-17 10:00:00 69 mm[Hg] Unive rsity of pressure [facility] Body weight 2022-02-17 01:00:00 107 kg [facility] BMI 2022-02-17 01:00:00 44.57 kg/m2 [facility] Body height 2022-02-12 09:00:00 154.9 cm [facility] Systolic blood 2022-01-31 16:32:00 136 mm[Hg] Univer sity of pressure [facility] Diastolic blood 2022-01-31 16:32:00 80 mm[Hg] Unive rsity of pressure [facility] Heart rate 2022-01-31 16:32:00 84 /min [facility] Body temperature 2022-01-31 16:32:00 37 Laly Univ ersity [facility] [place] [facility] Respiratory rate 2022-01-31 16:32:00 10 /min Univ [facility] Oxygen saturation in 2022-01-31 16:32:00 98 /min University of Arterial blood by [facility] Pulse oximetry Branch Body weight 2022-01-30 09:00:00 103.964 kg [facility] [place] [facility] BMI 2022-01-30 09:00:00 43.31 kg/m2 [facility] Body height 2022-01-28 04:12:00 154.9 cm [facility] Systolic blood 2022-01-13 03:00:00 134 mm[Hg] Univer sity of pressure [facility] Diastolic blood 2022-01-13 03:00:00 94 mm[Hg] Unive rsity of pressure [facility] Heart rate 2022-01-13 03:00:00 119 /min [facility] Respiratory rate 2022-01-13 03:00:00 18 /min Univ ersity [facility] Oxygen saturation in 2022-01-13 03:00:00 91 /min [facility] Arterial blood by [place] [facility]hel Pulse oximetry Branch Body temperature 2022-01-12 22:31:00 36.94 Laly Univ ersity [facility] Body height 2022-01-12 22:31:00 154.9 cm [facility] Body weight 2022-01-12 22:31:00 104.327 kg [facility] BMI 2022-01-12 22:31:00 43.46 kg/m2 [facility] Systolic blood 2022-01-12 17:00:00 135 mm[Hg] Univer sity of pressure [facility] Diastolic blood 2022-01-12 17:00:00 65 mm[Hg] Unive rsity of pressure [facility] Heart rate 2022-01-12 17:00:00 108 /min [facility] Respiratory rate 2022-01-12 17:00:00 20 /min Univ ersity of [facility] Oxygen saturation in 2022-01-12 17:00:00 92 /min University of Arterial blood by [place] [employer] mihcel Pulse oximetry Branch Body temperature 2022-01-12 09:00:00 36.22 Laly Univ ersity [facility] [place] [facility] Body weight 2022-01-03 17:00:00 104.32 kg [facility] BMI 2022-01-03 17:00:00 43.46 kg/m2 [facility] Body height 2022-01-02 09:20:00 154.9 cm [facility] Systolic blood 2021-12-09 05:00:00 123 mm[Hg] Univer sity of pressure [facility] Diastolic blood 2021-12-09 05:00:00 66 mm[Hg] Unive rsity of pressure [facility] Heart rate 2021-12-09 05:00:00 96 /min [facility] Respiratory rate 2021-12-09 05:00:00 13 /min Univ ersity [facility] Oxygen saturation in 2021-12-09 05:00:00 96 /min University of Arterial blood by [place] [employer] michel Pulse oximetry Branch Body temperature 2021-12-09 03:35:00 35.94 Laly Univ [facility] Body height 2021-12-09 03:35:00 154.9 cm [facility] Body weight 2021-12-09 03:35:00 104.327 kg [facility] BMI 2021-12-09 03:35:00 43.46 kg/m2 [facility] Systolic blood 2021-09-23 20:00:00 141 mm[Hg] Daine sity of pressure [facility] Diastolic blood 2021-09-23 20:00:00 83 mm[Hg] [facility] Heart rate 2021-09-23 20:00:00 98 /min [facility] Respiratory rate 2021-09-23 20:00:00 16 /min [facility] Oxygen saturation in 2021-09-23 20:00:00 97 /min [facility] Arterial blood by [facility] Pulse oximetry [place] Body temperature 2021-09-23 18:00:[address] [facility] Body height 2021-09-22 21:50:00 154.9 cm [facility] Body weight 2021-09-22 21:50:00 104.3 kg [facility] BMI 2021-09-22 21:50:00 43.45 kg/m2 [facility] Procedures Procedure Date / Time Performing Clinician Source Performed TROPONIN I 2022-09-09 13:20:00 Joslyn Ruelas [facility] COMP. METABOLIC PANEL 2022-09-09 13:20:00 Joslyn Ruelas [facility] ([id number]) [facility] CBC WITH DIFF 2022-09-09 13:20:00 Joslyn Ruelas [facility] RAPID INFLUENZA A/B 2022-09-09 13:20:00 Joslyn Ruelas [facility] N-TERMINAL PRO-BNP 2022-09-09 13:20:00 [facility] COVID-19 (ID NOW RAPID 2022-09-09 13:20:00 Joslyn Ruelas [facility] CONSENT/REFUSAL FOR 2022-09-09 12:19:48 Doctor Unassigned, [facility] DIAGNOSIS AND TREATMENT [facility] POCT GLUCOSE (AUTOMATED) 2022-08-10 17:15:00 [facility] 2022-08-10 13:45:00 [facility] ([facility]ATED) 2022-08-10 09:17:00 [facility] (AUTOMATED) 2022-08-10 06:01:00 [facility] (AUTOMATED) 2022-08-10 02:09:00 [facility] (AUTOMATED) 2022-08-09 22:26:00 Jonas Hernandez [facility] XR CHEST 1 VW 2022-08-09 19:47:[address] [facility] XR CHEST 1 VW 2022-08-09 14:07:17 Carlos [facility] POCT GLUCOSE (AUTOMATED) 2022-08-09 13:17:00 Jonas Hernandez Nimco [facility] PHOSPHORUS 2022-08-09 11:24:00 [facility]22-[facility]-09 11:24[facility] 2022-08-09 11:24:00 Corey Gonzalez [facility] (NA, K, CL, CO2, GLUCOSE, Medica l Branch BUN, CREATININE, CA) CBC WITH DIFF 2022-08-09 11:24:00 Carlos [facility] POCT GLUCOSE (AUTOMATED) 2022-08-09 11:22:00 [facility] ([facility]) 2022-08-09 06:16:00 [facility] ([facility]OMATED) 2022-08-09 02:24:00 [facility] ([facility]OMATED) 2022-08-08 22:31:00 Jonas Hernandez Nimco [facility] POCT GLUCOSE (AUTOMATED) 2022-08-08 17:30:00 Jonas Hernandez Nimco [facility] POCT GLUCOSE (AUTOMATED) 2022-08-08 13:20:00 Jonas Hernandez Nimco [facility] POCT GLUCOSE (AUTOMATED) 2022-08-08 09:51:00 Jonas Hernandez Nimco [facility] POCT GLUCOSE (AUTOMATED) 2022-08-08 06:10:00 [facility] ([facility]OMATED) 2022-08-08 02:37:00 Jonas Hernandez Nimco [facility] POCT GLUCOSE (AUTOMATED) 2022-08-07 22:16:00 Jonas Hernandez Nimco [facility] POCT GLUCOSE (AUTOMATED) 2022-08-07 17:26:00 Jonas Hernandez Nimco [facility] TRANSTHORACIC ECHO (TTE) 2022-08-07 16:31:00 Stella Ivory [facility] COMPLETE W/ CONTRAST Medical [facility] POCT GLUCOSE (AUTOMATED) 2022-08-07 13:42:00 Jonas Hernandez Nimco [facility] PHOSPHORUS 2022-08-07 11:00:00 Corey Gonzalez [facility] MAGNESIUM 2022-08-07 11:00:00 Corey Gonzalez [facility] BILI UNCONJUGATED/BILI 2022-08-07 11:00:00 Corey Gonzalez [facility] TROPONIN I 2022-08-07 11:00:00 Corey Gonzalez [facility] THYROID STIMULATING 2022-08-07 11:00:00 Corey Gonzalez [facility] HORMONE [facility] COMP. METABOLIC PANEL 2022-08-07 11:00:00 Jonas Hernandez [facility] ([id number]) [facility] CBC WITH DIFF 2022-08-07 11:00:00 Corey Gonzalez [facility] N-TERMINAL PRO-BNP 2022-08-07 11:00:00 Corey Gonzalez [facility] ACUTE CARE VENOUS BLOOD 2022-08-07 10:59:00 Jonas Hernandez [facility] POCT GLUCOSE (AUTOMATED) 2022-08-07 10:17:00 Jonas Hernandez [facility] POCT GLUCOSE (AUTOMATED) 2022-08-07 05:38:00 Jonas Hernandez [facility] POCT GLUCOSE (AUTOMATED) 2022-08-07 02:06:00 Jonas Hernandez [facility] POCT GLUCOSE (AUTOMATED) 2022-08-06 22:27:00 Jonsa Hernandez [facility] POCT GLUCOSE (AUTOMATED) 2022-08-06 17:15:00 Jonas Hernandez [facility] CT THORAX W CONTRAST 2022-08-06 16:53:[address] [facility] CORTISOL AM 2022-08-06 13:33:00 Jonas Hernandez [facility] CBC WITH DIFF 2022-08-06 13:33:00 Mary agus [facility] LACTIC ACID WHOLE BLOOD 2022-08-06 13:33:[address] [facility] POCT GLUCOSE (AUTOMATED) 2022-08-06 13:27:00 Jonas Hernandez [facility] POCT GLUCOSE (AUTOMATED) 2022-08-06 10:37:00 Jonas Hernandez [facility] PHOSPHORUS 2022-08-06 10:25:00 Jonas Hernandez [facility] CREATINE KINASE 2022-08-06 10:25:00 Jonas Hernandez [facility] MAGNESIUM 2022-08-06 10:25:00 Mary agus [facility] TROPONIN I 2022-08-06 10:25:00 Mary agus [facility] COMP. METABOLIC PANEL 2022-08-06 10:25:00 [id number] ACUTE CARE VENOUS BLOOD 2022-08-06 10:25:00 Jonas Hernandez [facility] N-TERMINAL PRO-BNP 2022-08-06 10:25:00 [facility] POCT GLUCOSE (AUTOMATED) 2022-08-06 06:54:00 Jonas Hernandez [facility] POCT GLUCOSE (AUTOMATED) 2022-08-06 02:30:00 Jonas Hernandez [facility] POCT GLUCOSE (AUTOMATED) 2022-08-05 22:59:00 Jonas Hernandez [facility] TROPONIN I 2022-08-05 22:00:00 Jonas Hernandez [facility] URINALYSIS 2022-08-05 21:45:00 Carlos [facility] URINE CULTURE 2022-08-05 21:45:00 Carlos [facility] POCT GLUCOSE (AUTOMATED) 2022-08-05 17:53:00 Jonas Hernandez [facility] POCT GLUCOSE (AUTOMATED) 2022-08-05 13:19:00 Jonas Hernandez [facility] XR CHEST 1 VW 2022-08-05 12:59:00 Mary agus [facility] LEGIONELLA URINARY 2022-08-05 11:12:[address] [facility] RESPIRATORY PANEL BY PCR 2022-08-05 11:12:00 Jonas Hernandez [facility] URINE CULTURE 2022-08-05 11:11:00 Jonas Hernandez [facility] SODIUM, URINE RANDOM 2022-08-05 11:11:00 Jonas Hernandez [facility] PNEUMOCOCCAL ANTIGEN 2022-08-05 11:11:00 Jonas Hernandez [facility] PROTEIN CREAT RATIO URINE 2022-08-05 11:11:00 Jonas Hernandez [facility] OSMOLALITY URINE 2022-08-05 11:10:00 Mary agus [facility] MRSA / MSSA SCREEN BY 2022-08-05 11:09:00 Jonas Hernandez [facility] PCR, NARES Medical Branch PHOSPHORUS 2022-08-05 11:08:00 Mary agus [facility] CREATINE KINASE 2022-08-05 11:08:00 Mary [facility] MAGNESIUM 2022-08-05 11:08:00 Mary agus [facility] TROPONIN I 2022-08-05 11:08:00 Mary [facility] COMP. METABOLIC PANEL 2022-08-05 11:08:00 Mary [facility] ([id number]) [facility] LIPID PANEL ([id number])(TOTAL 2022-08-05 11:08:00 Jonas Hernandez [facility] CHOLESTEROL, [facility] TRIGLYCERIDES, HDL) SEDIMENTATION RATE 2022-08-05 11:08:00 Jonas Hernandez [facility] GLYCOSYLATED HEMOGLOBIN 2022-08-05 11:08:00 Mary agus [facility] (A1C) [facility] URINALYSIS 2022-08-05 11:08:00 Mary [facility] MYCOPLASMA PNEUMONIAE 2022-08-05 11:08:00 Mary agus [facility] ANTIBODY, IGM [facility] N-TERMINAL PRO-BNP 2022-08-05 11:08:00 Mary ag[facility] PROCALCITONIN 2022-08-05 11:08:00 Mary agus [facility] AC PANEL 20 + LACTIC ACID 2022-08-05 10:56:00 Jonas Hernandez [facility] ASSIGNMENT OF BENEFITS 2022-08-05 06:59:31 Doctor Unassigned, [facility] Name Medical Branch CONSENT/REFUSAL FOR 2022-08-05 06:58:52 Doctor Unassigned, [facility] DIAGNOSIS AND TREATMENT [facility] XR CHEST 1 VW 2022-06-05 04:10:06 Singer [facility] TROPONIN I 2022-06-05 03:21:00 Acevedo, Gen [facility] COMP. METABOLIC PANEL 2022-06-05 03:21:00 Gen Acevedo [facility] ([id number]) Medical Branch CBC WITH DIFF 2022-06-05 03:21:00 Singer [facility] RAPID INFLUENZA A/B 2022-06-05 03:21:00 Gen Acevedo [facility] N-TERMINAL PRO-BNP 2022-06-05 03:21:00 Gen Acevedo [facility] COVID-19 (ID NOW RAPID 2022-06-05 03:21:00 Gen Acevedo [facility] TESTING) Medical Branch CONSENT/REFUSAL FOR 2022-06-05 02:20:45 Doctor [facility] DIAGNOSIS AND TREATMENT [facility] TROPONIN I 2022-05-13 07:08:00 Paula Rowe [facility] CT CHEST PULMONARY 2022-05-13 06:13:34 Paula Rowe [facility] ANGIOGRAM Medical Branch XR CHEST 1 VW 2022-05-13 04:42:45 Paula Rowe [facility] BLOOD CULTURE SCREEN 2022-05-13 04:10:00 Paula Rowe [facility] TROPONIN I 2022-05-13 04:10:00 Paula Rowe [facility] COMP. METABOLIC PANEL 2022-05-13 04:10:00 Paula Rowe [facility] ([id number]) [facility] CBC WITH DIFF 2022-05-13 04:10:00 Paula Rowe [facility] PROTHROMBIN TIME / INR 2022-05-13 04:10:00 Paula Rowe [facility] ACTIVATED PARTIAL 2022-05-13 04:10:00 Paula Rowe [facility] THRMPLAS SHREYA [facility] RAPID INFLUENZA A/B 2022-05-13 04:10:00 Paula Rowe [facility] N-TERMINAL PRO-BNP 2022-05-13 04:10:00 Paula Rowe [facility] COVID-19 (ID NOW RAPID 2022-05-13 04:10:00 Paula Rowe [facility] TESTING) [facility] [place] AC PANEL 21 + LACTIC ACID 2022-05-02 06:08:00 San[facility] VW 2022-05-02 05:52:00 Sanjay Henry [facility] URINALYSIS 2022-05-02 05:44:00 Sanjay Henry [facility] MAGNESIUM 2022-05-02 05:43:00 Sanjay Henry Janel [facility] TROPONIN I 2022-05-02 05:43:00 Sanjay Henry Janel [facility] COMP. METABOLIC PANEL 2022-05-02 05:43:00 Sanjay Henry [facility] ([id number]) [facility] CBC WITH DIFF 2022-05-02 05:43:00 Sanjay Henry Janel [facility] N-TERMINAL PRO-BNP 2022-05-02 05:43:00 Sanjay [facility] CONSENT/REFUSAL FOR 2022-05-02 05:16:55 Doctor Unassigned, [facility] DIAGNOSIS AND TREATMENT [facility] COVID-19 (ID NOW RAPID 2022-04-29 03:43:00 Paula Rowe [facility] TESTING) [facility] CT ABDOMEN PELVIS WO 2022-04-29 03:38:06 Paula Rowe [facility] CONTRAST [facility] XR CHEST 1 VW 2022-04-29 03:23:24 Paula Rowe [facility] TROPONIN I 2022-04-29 02:49:00 Paula Rowe [facility] COMP. METABOLIC PANEL 2022-04-29 02:49:00 Paula Rowe [facility] ([id number]) [facility] CBC WITH DIFF 2022-04-29 02:49:00 Paula Rowe [facility] PROTHROMBIN TIME / INR 2022-04-29 02:49:00 Paula Rowe [facility] ACTIVATED PARTIAL 2022-04-29 02:49:00 Paula Rowe [facility] THRMPLAS SHREYA [facility] N-TERMINAL PRO-BNP 2022-04-29 02:49:00 Paula Rowe [facility] POCT GLUCOSE (AUTOMATED) 2022-02-27 20:30:00 Yasmine Kevin Rinaldi [facility] POCT GLUCOSE (AUTOMATED) 2022-02-27 16:16:00 Yasmine Kevin Rinaldi [facility] POCT GLUCOSE (AUTOMATED) 2022-02-27 12:27:00 Yasmine Kevin Rinaldi [facility] POCT GLUCOSE (AUTOMATED) 2022-02-26 21:42:00 Yasmine Kevin Rinaldi [facility] POCT GLUCOSE (AUTOMATED) 2022-02-26 17:49:00 Yasmine Kevin Rinaldi [facility] POCT GLUCOSE (AUTOMATED) 2022-02-26 14:27:00 Yasmine Kevin Rinaldi [facility] MAGNESIUM 2022-02-26 08:50:00 Michael [facility] BASIC METABOLIC PANEL 2022-02-26 08:50:00 Michael [facility] (NA, K, CL, CO2, GLUCOSE, Medica l Branch BUN, CREATININE, CA) POCT GLUCOSE (AUTOMATED) 2022-02-26 01:26:00 Yasmine Kevin Rinaldi [facility] POCT GLUCOSE (AUTOMATED) 2022-02-25 20:40:00 Yasmine Kevin Rinaldi [facility] POCT GLUCOSE (AUTOMATED) 2022-02-25 16:39:00 Yasmine Kevin Rinaldi [facility] ACUTE CARE ARTERIAL BLOOD 2022-02-25 14:04:00 [facility] ([facility]OMATED) 2022-02-25 12:51:00 Yasmine Kevin Rinaldi [facility] PHOSPHORUS 2022-02-25 11:01:00 Lisa Fritz [facility] MAGNESIUM 2022-02-25 11:01:00 [facility]OLIC PANEL 2022-02-25 11:01:00 Lisa Fritz [facility] (NA, K, CL, CO2, GLUCOSE, Medica l Branch BUN, CREATININE, CA) POCT GLUCOSE (AUTOMATED) 2022-02-25 01:24:00 Yasmine Kevin Rinaldi [facility] POCT GLUCOSE (AUTOMATED) 2022-02-24 20:49:00 Yasmine Kevin Rinaldi [facility] POCT GLUCOSE (AUTOMATED) 2022-02-24 16:52:00 Yasmine Kevin Rinaldi [facility] ACUTE CARE ARTERIAL BLOOD 2022-02-24 16:42:00 Isma Cortez [facility] POCT GLUCOSE (AUTOMATED) 2022-02-24 13:24:00 Yasmine Kevin [facility] TROPONIN I 2022-02-24 12:34:00 Lam [facility] BASIC METABOLIC PANEL 2022-02-24 12:34:00 Lam [facility] (NA, K, CL, CO2, GLUCOSE, Medica l Branch BUN, CREATININE, CA) HB ECG ROUTINE & RHYTHM 2022-02-24 12:23:17 Lam [facility] LACTIC ACID WHOLE BLOOD 2022-02-24 03:13:[address] [facility] POCT GLUCOSE (AUTOMATED) 2022-02-24 01:20:00 Yasmine Kevin [facility] XR KUB 2022-02-24 00:31:00 Dana [facility] POCT GLUCOSE (AUTOMATED) 2022-02-23 22:34:00 Yasmine Kevin Rinaldi [facility] POCT GLUCOSE (AUTOMATED) 2022-02-23 21:46:00 Kevin Lebron [facility] XR CHEST 1 VW 2022-02-23 19:26:00 Dana [facility] AC PANEL 20 + LACTIC ACID 2022-02-23 18:02:00 Isma Cortez [facility] POCT GLUCOSE (AUTOMATED) 2022-02-23 17:19:00 Yasmine Kevin [facility] POCT GLUCOSE (AUTOMATED) 2022-02-23 13:22:00 Yasmine Kevin [facility] POCT GLUCOSE (AUTOMATED) 2022-02-22 21:55:00 Kevin Lebron [facility] POCT GLUCOSE (AUTOMATED) 2022-02-22 18:22:00 Kevin Lebron [facility] CBC WITH DIFF 2022-02-22 11:32:00 Joshua [facility] MAGNESIUM 2022-02-22 11:31:00 Joshua [facility] BASIC METABOLIC PANEL 2022-02-22 11:31:00 Joshua [facility] (NA, K, CL, CO2, GLUCOSE, Medica l Branch BUN, CREATININE, CA) XR CHEST 1 VW 2022-02-22 09:34:00 Joshua [facility] POCT GLUCOSE (AUTOMATED) 2022-02-22 01:20:00 Kevin Lebron [facility] POCT GLUCOSE (AUTOMATED) 2022-02-21 21:53:00 Kevin Lebron [facility] CBC WITHOUT DIFF 2022-02-21 15:46:00 Britt [facility] POCT GLUCOSE (AUTOMATED) 2022-02-21 14:26:00 Kevin Lebron [facility] URINALYSIS 2022-02-21 08:27:00 Joshua [facility] URINE CULTURE 2022-02-21 08:27:00 Joshua [facility] MAGNESIUM 2022-02-21 08:06:00 Joshua [facility] BASIC METABOLIC PANEL 2022-02-21 08:06:00 Joshua [facility] (NA, K, CL, CO2, GLUCOSE, Medica l Branch BUN, CREATININE, CA) CBC WITH DIFF 2022-02-21 08:06:00 Joshua [facility] MRSA / MSSA SCREEN BY 2022-02-21 03:21:00 Chase Ny [facility] PCR, [facility] POCT GLUCOSE (AUTOMATED) 2022-02-21 02:31:00 Kevin Lebron [facility] BLOOD CULTURE SCREEN 2022-02-21 01:58:00 Joshua, Candi [facility] BLOOD CULTURE SCREEN 2022-02-21 01:49:00 Candi Lewis [facility] XR CHEST 1 VW 2022-02-20 23:44:00 Albert Brown [facility] ACUTE CARE ARTERIAL BLOOD 2022-02-20 23:23:00 [facility] XR CHEST 1 VW 2022-02-20 20:39:00 Paula Rowe [facility] TROPONIN I 2022-02-20 20:17:00 Paula Rowe [facility] COMP. METABOLIC PANEL 2022-02-20 20:17:00 Paula Rowe [facility] ([id number]) [facility] [place] CBC WITH DIFF 2022-02-20 20:17:00 Paula Rowe [facility] PROTHROMBIN TIME / INR 2022-02-20 20:17:00 Paula Rowe [facility] ACTIVATED PARTIAL 2022-02-20 20:17:00 Paula Rowe [facility] THRMPLAS SHREYA [facility] N-TERMINAL PRO-BNP 2022-02-20 20:17:00 Paula [facility]e [facility] COVID-19 (ID NOW RAPID 2022-02-20 20:07:00 Paula Rowe [facility] TESTING) Medical Branch LAB ONLY COVID 2022-02-20 20:07:00 Paula Rowe [facility] INTERPRETATION [facility] HB ECG ROUTINE & RHYTHM 2022-02-20 20:06:49 Paula Rowe [facility] STRIP Medical Branch CONSENT/REFUSAL FOR 2022-02-20 19:58:43 Doctor Arturo [facility] DIAGNOSIS AND TREATMENT [facility] [place] EMERGENCY DEPARTMENT 2022-02-20 05:01:00 Doctor Arturo [facility] DOCUMENTS [facility] [place] HOSPITAL ADMISSION 2022-02-20 05:01:00 Doctor Arturo [facility] [place] POCT GLUCOSE (AUTOMATED) 2022-02-17 21:44:00 Valeriano Pantoja [facility] POCT GLUCOSE (AUTOMATED) 2022-02-17 17:09:00 Terminella, Valeriano [facility] POCT GLUCOSE (AUTOMATED) 2022-02-17 13:06:00 Terminella, Valeriano [facility] XR CHEST 1 VW 2022-02-17 11:51:08 [facility] 2022-02-17 09:13:00 Nathaniel [facility] BASIC METABOLIC PANEL 2022-02-17 09:13:00 Kayla Armstrong [facility] (NA, K, CL, CO2, GLUCOSE, Medica l Branch BUN, CREATININE, CA) CBC WITH DIFF 2022-02-17 09:13:00 [facility] 2022-02-17 09:02:00 [facility]AUTOMATED) 2022-02-17 00:49:00 Terminella, Valeriano [facility] XR CHEST 1 VW 2022-02-16 23:15:00 [facility] PO[facility] GLUCOSE (AUTOMATED) 2022-02-16 21:46:00 Terminella, Valeriano [facility] POCT GLUCOSE (AUTOMATED) 2022-02-16 16:59:00 Terminella, Valeriano [facility] POCT GLUCOSE (AUTOMATED) 2022-02-16 13:05:00 Terminella, Valeriano [facility] POCT GLUCOSE (AUTOMATED) 2022-02-16 08:32:00 Terminella, Valeriano [facility] POCT GLUCOSE (AUTOMATED) 2022-02-16 04:29:00 Terminella, Valeriano [facility] POCT GLUCOSE (AUTOMATED) 2022-02-16 00:39:00 Terminella, Valeriano [facility] POCT GLUCOSE (AUTOMATED) 2022-02-15 21:14:00 Terminella, Vaelriano [facility] POCT GLUCOSE (AUTOMATED) 2022-02-15 16:58:00 Terminella, Valeriano [facility] POCT GLUCOSE (AUTOMATED) 2022-02-15 12:45:00 Terminella, Valeriano [facility] POCT GLUCOSE (AUTOMATED) 2022-02-15 08:02:00 Terminella, Valeriano [facility] MAGNESIUM 2022-02-15 07:56:00 Roberto Murdock [facility] COMP. METABOLIC PANEL 2022-02-15 07:56:00 Roberto Murdock [facility] ([id number]) [facility] CBC WITHOUT DIFF 2022-02-15 07:56:00 Roberto Murdock [facility] POCT GLUCOSE (AUTOMATED) 2022-02-15 04:15:00 Terminella, Valeriano [facility] POCT GLUCOSE (AUTOMATED) 2022-02-15 00:48:00 Terminella, Valeriano [facility] POCT GLUCOSE (AUTOMATED) 2022-02-14 21:22:00 Terminella, Valeriano [facility] POCT GLUCOSE (AUTOMATED) 2022-02-14 19:37:00 Terminella, Valeriano [facility] POCT GLUCOSE (AUTOMATED) 2022-02-14 16:28:00 Terminella, Valeriano [facility] POCT GLUCOSE (AUTOMATED) 2022-02-14 14:17:00 Terminella, Valeriano [facility] XR CHEST 1 VW 2022-02-14 11:42:00 Kayla Armstrong [facility] MAGNESIUM 2022-02-14 09:56:00 Kayla Armstrong [facility] COMP. METABOLIC PANEL 2022-02-14 09:56:00 Kayla Armstrong [facility] ([id number]) [facility] CBC WITH DIFF 2022-02-14 09:56:00 Kayla Armstrong [facility] ACUTE CARE ARTERIAL BLOOD 2022-02-14 08:33:00 Kayla Armstrong [facility] POCT GLUCOSE (AUTOMATED) 2022-02-14 08:17:00 Terminella[facility]ATED) 2022-02-14 04:25:00 TerminYvonne alstonigi [facility] E[facility]-12 LEAD 2022-02-14 04:11:18 Doctor Unassigned, [facility] POCT GLUCOSE (AUTOMATED) 2022-02-14 00:55:00 TerminellaYvonneValeriano [facility] PO[facility] GLU[facility]SE (AUTOMATED) 2022-02-13 22:29:00 Terminella [facility] POCT GLUCOSE (AUTOMATED) 2022-02-13 17:29:00 Terminella, Val[facility]iano [facility] POCT GLUCOSE (AUTOMATED) 2022-02-13 15:52:00 TerminYvonne alstonigi [facility]UTE CARE ARTERIAL BLOOD 2022-02-13 14:22:00 [facility] POCT GLUCOSE (AUTOMATED) 2022-02-13 14:07:00 TerminYvonne alstonigi U [facility] DUPLEX VENOUS LEGS 2022-02-13 14:00:43 Roberto Murdock [facility] BILATERAL - BY VASCULAR [facility] LAB POCT GLUCOSE (AUTOMATED) 2022-02-13 12:45:00 TerminYvonne alstonigi U [facility] POCT GLUCOSE (AUTOMATED) 2022-02-13 11:43:00 January Pantojai [facility] MAGNESI[facility] 2022-02-13 10:33:00 [facility] BASIC METABOLIC PANEL 2022-02-13 10:33:00 Roberto Murdock [facility] (NA, K, CL, CO2, GLUCOSE, Medica l Branch BUN, CREATININE, CA) CBC WITH DIFF 2022-02-13 10:33:00 Valeriano [facility] POCT GLUCOSE (AUTOMATED) 2022-02-13 09:42:00 TerminYvonne alstonigi [facility] POCT GLUCOSE (AUTOMATED) 2022-02-13 08:46:00 Terminella, Valeriano [facility] POCT GLUCOSE (AUTOMATED) 2022-02-13 07:59:00 Terminella, Valeriano [facility] POCT GLUCOSE (AUTOMATED) 2022-02-13 06:56:00 Terminella, Valeriano [facility] POCT GLUCOSE (AUTOMATED) 2022-02-13 05:57:00 Terminella, Valeriano [facility] POCT GLUCOSE (AUTOMATED) 2022-02-13 03:36:00 Terminella, Valeriano [facility] BASIC METABOLIC PANEL 2022-02-13 03:30:00 Murdock, Roberto [facility] (NA, K, CL, CO2, GLUCOSE, Medica l Branch BUN, CREATININE, CA) POCT GLUCOSE (AUTOMATED) 2022-02-13 02:46:00 Terminella, Valeriano [facility] POCT GLUCOSE (AUTOMATED) 2022-02-13 01:37:00 Terminella, Valeriano [facility] POCT GLUCOSE (AUTOMATED) 2022-02-13 00:34:00 Terminella, Valeriano [facility] POCT GLUCOSE (AUTOMATED) 2022-02-12 23:25:00 Terminella, Valeriano [facility] POCT GLUCOSE (AUTOMATED) 2022-02-12 22:20:00 Terminella, Valeriano [facility] POCT GLUCOSE (AUTOMATED) 2022-02-12 21:02:00 Terminella, Valeriano [facility] BASIC METABOLIC PANEL 2022-02-12 20:39:00 MurdockAshleyo [facility] [place] (NA, K, CL, CO2, GLUCOSE, Medica l Branch BUN, CREATININE, CA) POCT GLUCOSE (AUTOMATED) 2022-02-12 20:02:00 Terminella, Valeriano [facility] POCT GLUCOSE (AUTOMATED) 2022-02-12 19:06:00 Terminella, Valeriano [facility] POCT GLUCOSE (AUTOMATED) 2022-02-12 18:09:00 Terminella, Valeriano [facility] POCT GLUCOSE (AUTOMATED) 2022-02-12 17:17:00 TerminellaJanuaryi [facility] SPUTUM CULTURE 2022-02-12 16:29:00 [facility] BASIC METABOLIC PANEL 2022-02-12 16:16:00 Kayla Armstrong [facility] (NA, K, CL, CO2, GLUCOSE, Medica l Branch BUN, CREATININE, CA) POCT GLUCOSE (AUTOMATED) 2022-02-12 16:11:00 TerminellaYvonneValeriano U [facility] POCT GLUCOSE (AUTOMATED) 2022-02-12 14:14:00 TerminellaJanuaryi U [facility] POCT GLUCOSE (AUTOMATED) 2022-02-12 13:17:00 TerminellaJanuaryi U [facility] POCT GLUCOSE (AUTOMATED) 2022-02-12 12:42:00 TerminellaJanuaryi U [facility] BASIC METABOLIC PANEL 2022-02-12 12:18:00 [facility] (NA, K, CL, CO2, GLUCOSE, Medica l Branch BUN, CREATININE, CA) POCT GLUCOSE (AUTOMATED) 2022-02-12 12:17:00 TerminellaYvonneValeriano [facility] POCT GLUCOSE (AUTOMATED) 2022-02-12 11:15:00 TerminellaJanuaryi U [facility] POCT GLUCOSE (AUTOMATED) 2022-02-12 10:12:00 TerminellaYvonneValeriano U [facility] POCT GLUCOSE (AUTOMATED) 2022-02-12 09:12:00 [facility] hospitalYvonneValeriano [facility] MRSA / MSSA SCREEN BY 2022-02-12 08:23:00 [facility] AC PANEL 20 + LACTIC ACID 2022-02-12 08:22:00 [facility] PHOSPHORUS 2022-02-12 08:21:00 Scarlett [facility] MAGNESIUM 2022-02-12 08:21:00 Terminella, [facility] OSMOLALITY, SERUM OR 2022-02-12 08:21:00 [facility] PLASMA [facility] BETA HYDROXY-BUTYRATE 2022-02-12 08:21:00 [facility] BASIC METABOLIC PANEL 2022-02-12 08:21:00 [facility] (NA, K, CL, CO2, GLUCOSE, Medica l Branch BUN, CREATININE, CA) CBC WITH DIFF 2022-02-12 08:21:00 [facility] GLYCOSYLATED HEMOGLOBIN 2022-02-12 08:21:00 [facility] (A1C) [facility] POCT GLUCOSE (AUTOMATED) 2022-02-12 04:53:00 Paula Rowe [facility] URINE DRUG (IMMUNOASSAY) 2022-02-12 04:24:[address] [facility] nch SCREEN W/O REFLEX URINALYSIS 2022-02-12 04:23:00 Paula Rowe [facility] POCT GLUCOSE (AUTOMATED) 2022-02-12 04:12:00 Paula Rowe [facility] CT CHEST PULMONARY 2022-02-12 02:41:40 Paula Rowe [facility] ANGIOGRAM [facility] CT ABDOMEN PELVIS W 2022-02-12 02:39:36 Paula Rowe [facility] CONTRAST [facility] CT HEAD WO CONTRAST 2022-02-12 02:39:36 Paula Rowe [facility] XR CHEST 1 VW 2022-02-12 02:08:38 Paula Rowe [facility] AC PANEL 20 + LACTIC ACID 2022-02-12 01:59:00 Paula Rowe [facility] AMMONIA, PLASMA 2022-02-12 01:18:00 Paula Rowe [facility] BLOOD CULTURE SCREEN 2022-02-12 01:16:00 Paula Rowe [facility] COVID-19 (ID NOW RAPID 2022-02-12 01:16:00 Paula Rowe [facility] TESTING) [facility] [place] LAB ONLY COVID 2022-02-12 01:16:00 Paula Rowe [facility] INTERPRETATION [facility] BLOOD CULTURE SCREEN 2022-02-12 01:12:00 Paula Rowe [facility] TROPONIN I 2022-02-12 01:12:00 Paula Rowe [facility] FREE T4 2022-02-12 01:12:00 Paula Rowe [facility] THYROID STIMULATING 2022-02-12 01:12:00 Paula Rowe [facility] HORMONE [facility] COMP. METABOLIC PANEL 2022-02-12 01:12:00 Paula Rowe [facility] ([id number]) Medical Branch ETHANOL 2022-02-12 01:12:00 Paula Rowe [facility] CBC WITH DIFF 2022-02-12 01:12:00 Paula Rowe [facility] PROTHROMBIN TIME / INR 2022-02-12 01:12:00 Paula Rowe [facility] ACTIVATED PARTIAL 2022-02-12 01:12:00 Paula Rowe [facility] THRMPLAS SHREYA [facility] N-TERMINAL PRO-BNP 2022-02-12 01:12:00 Paula [facility]e [facility] EKG-12 LEAD 2022-02-12 01:06:16 Doctor Elidiassigned, [facility] [place] POCT GLUCOSE (AUTOMATED) 2022-02-12 00:57:00 Paula Rowe [facility] ASSIGNMENT OF BENEFITS 2022-02-12 00:53:44 Doctor Unassigned, [facility] [place] CONSENT/REFUSAL FOR 2022-02-12 00:53:30 Doctor Arturo, [facility] DIAGNOSIS AND TREATMENT [facility] EMERGENCY DEPARTMENT 2022-02-11 05:01:00 Doctor Arturo, [facility] DOCUMENTS [facility] POCT GLUCOSE (AUTOMATED) 2022-01-31 16:09:00 Jonas Hernandez [facility] POCT GLUCOSE (AUTOMATED) 2022-01-31 12:37:00 Jonas Hernandez [facility] PHOSPHORUS 2022-01-31 09:02:00 Luz Maria [facility] MAGNESIUM 2022-01-31 09:02:00 [facility] METABOLIC PANEL 2022-01-31 09:02:00 Luz Maria [facility] (NA, K, CL, CO2, GLUCOSE, Medica l Branch BUN, CREATININE, CA) ACUTE CARE VENOUS BLOOD 2022-01-31 09:02:00 Luz Maria [facility] N-TERMINAL PRO-BNP 2022-01-31 09:02:[address] [facility] POCT GLUCOSE (AUTOMATED) 2022-01-30 21:20:00 Jonas Hernandez [facility] POCT GLUCOSE (AUTOMATED) 2022-01-30 16:58:00 Jonas Hernandez [facility] POCT GLUCOSE (AUTOMATED) 2022-01-30 13:58:00 Jonas Hernandez [facility] POCT GLUCOSE (AUTOMATED) 2022-01-30 13:11:00 Jonas Hernandez [facility] COMP. METABOLIC PANEL 2022-01-30 09:22:00 Jonas Hernandez [facility] ([id number]) [facility] CBC WITH DIFF 2022-01-30 09:22:00 Luz Maria [facility] N-TERMINAL PRO-BNP 2022-01-30 09:22:00 Jonas Hernandez [facility] ACUTE CARE VENOUS BLOOD 2022-01-30 09:21:00 Jonas Hernandez [facility] POCT GLUCOSE (AUTOMATED) 2022-01-30 03:01:00 Jonas Hernandez [facility] POCT GLUCOSE (AUTOMATED) 2022-01-29 21:03:00 Jonas Hernandez [facility] POCT GLUCOSE (AUTOMATED) 2022-01-29 16:05:00 Jonas Hernandez [facility] POCT GLUCOSE (AUTOMATED) 2022-01-29 15:13:00 Jonas Hernandez [facility] SPUTUM CULTURE 2022-01-29 13:06:00 Luz Maria [facility] POCT GLUCOSE (AUTOMATED) 2022-01-29 12:46:00 Jonas Hernandez [facility] PHOSPHORUS 2022-01-29 09:33:00 Markus Loera [facility] MAGNESIUM 2022-01-29 09:33:00 Jonas Hernandez [facility] COMP. METABOLIC PANEL 2022-01-29 09:33:00 Jonas Hernandez [facility] ([id number]) [facility] [place] CBC WITH DIFF 2022-01-29 09:33:00 Luz Maria [facility] N-TERMINAL PRO-BNP 2022-01-29 09:33:00 Jonas [facility] ACUTE CARE VENOUS BLOOD 2022-01-29 09:32:00 Jonas Hernandez [facility] POCT GLUCOSE (AUTOMATED) 2022-01-29 02:58:00 Jonas Hernandez [facility] POCT GLUCOSE (AUTOMATED) 2022-01-29 01:35:00 Jonas Hernandez [facility] POCT GLUCOSE (AUTOMATED) 2022-01-28 21:20:00 Jonas Hernandez [facility] XR CHEST 1 VW 2022-01-28 18:54:18 Markus Loera [facility] PROTEIN CREAT RATIO URINE 2022-01-28 16:54:00 Dilan Coffey [facility] URIC ACID 2022-01-28 16:49:00 Dilan Coffey [facility] TROPONIN I 2022-01-28 16:49:00 Jonas Hernandez [facility] TRANSTHORACIC ECHO (TTE) 2022-01-28 15:37:00 Jonas Hernandez [facility] COMPLETE W/ CONTRAST Medical [facility] DUPLEX VENOUS LEGS 2022-01-28 14:42:22 Jonas Hernandez [facility] BILATERAL - BY VASCULAR [facility] LAB POCT GLUCOSE (AUTOMATED) 2022-01-28 13:57:00 Jonas Hernandez [facility] POCT GLUCOSE (AUTOMATED) 2022-01-28 12:58:00 Jonas Hernandez [facility] TROPONIN I 2022-01-28 11:46:[address] [facility] IRON PANEL 2022-01-28 11:46:00 Mary agus [facility] SEDIMENTATION RATE 2022-01-28 11:46:00 Mary [facility] N-TERMINAL PRO-BNP 2022-01-28 11:46:[address] [facility] PHOSPHORUS 2022-01-28 11:45:00 Mary [facility] CREATINE KINASE 2022-01-28 11:45:00 Mary [facility] URIC ACID 2022-01-28 11:45:00 Mary [facility] MAGNESIUM 2022-01-28 11:45:00 Mary [facility] FERRITIN SERUM 2022-01-28 11:45:00 Mary [facility] VITAMIN B12, LEVEL 2022-01-28 11:45:00 Mary [facility] TROPONIN I 2022-01-28 11:45:00 Mary [facility] THYROID STIMULATING 2022-01-28 11:45:00 Mary agus [facility] HORMONE [facility] COMP. METABOLIC PANEL 2022-01-28 11:45:00 Jonas Hernandez [facility] ([id number]) Medical Branch LIPID PANEL ([id number])(TOTAL 2022-01-28 11:45:00 Jonas Hernandez [facility] CHOLESTEROL, [facility] TRIGLYCERIDES, HDL) ACUTE CARE VENOUS BLOOD 2022-01-28 11:45:00 Jonas Hernandez [facility] GAS [facility] N-TERMINAL PRO-BNP 2022-01-28 11:45:00 Mary agus [facility] VITAMIN D, 25-OH 2022-01-28 11:45:00 Mary [facility] PROCALCITONIN 2022-01-28 11:45:00 Mary agus [facility] OSMOLALITY URINE 2022-01-28 08:55:00 Mary [facility] URINALYSIS 2022-01-28 08:55:00 Mary [facility] URINE CULTURE 2022-01-28 08:55:00 Mary [facility] UREA NITROGEN, URINE 2022-01-28 08:55:00 Mary agus [facility] SODIUM, URINE RANDOM 2022-01-28 08:55:00 Mary [facility] PROTEIN CREAT RATIO URINE 2022-01-28 08:55:00 [facility] VW 2022-01-28 02:23:00 Paula Rowe [facility] TROPONIN I 2022-01-28 02:09:00 Paula Rowe [facility] COMP. METABOLIC PANEL 2022-01-28 02:09:00 Paula Rowe [facility] ([id number]) [facility] CBC WITH DIFF 2022-01-28 02:09:00 Paula Rowe [facility] GLYCOSYLATED HEMOGLOBIN 2022-01-28 02:09:00 Mary agus [facility] (A1C) [facility] PROTHROMBIN TIME / INR 2022-01-28 02:09:00 Paula Rowe [facility] ACTIVATED PARTIAL 2022-01-28 02:09:00 Paula Rowe [facility] THRMPLAS SHREYA [facility] N-TERMINAL PRO-BNP 2022-01-28 02:09:00 Paula Rowe [facility] COVID-19 (ID NOW RAPID 2022-01-28 02:09:00 Paula Rowe [facility] TESTING) Medical Branch LAB ONLY COVID 2022-01-28 02:09:00 Paula Rowe [facility] HB ECG ROUTINE & RHYTHM 2022-01-28 01:47:33 Paula Rowe [facility] NOTICE OF PRIVACY 2022-01-28 01:38:34 Doctor Unassigned, [facility] PRACTICES [facility] [place] CONSENT/REFUSAL FOR 2022-01-28 01:37:59 Doctor Unassigned, [facility] DIAGNOSIS AND TREATMENT [facility] COMP. METABOLIC PANEL 2022-01-12 23:24:00 Joslyn Ruelas [facility] ([id number]) [facility] CBC WITH DIFF 2022-01-12 23:24:00 Joslyn R[facility] XR CHEST 1 VW 2022-01-12 23:20:00 Joslyn Ruelas [facility] AC PANEL 21 + LACTIC ACID 2022-01-12 23:14:00 Joslyn Ruelas [facility] POCT GLUCOSE (AUTOMATED) 2022-01-12 17:48:00 Moulin, Cory [facility] POCT GLUCOSE (AUTOMATED) 2022-01-12 13:22:00 Moulin, Cory [facility] POCT GLUCOSE (AUTOMATED) 2022-01-12 05:51:00 Moulin, Cory [facility] POCT GLUCOSE (AUTOMATED) 2022-01-11 23:02:00 Moulin, Cory [facility] POCT GLUCOSE (AUTOMATED) 2022-01-11 17:20:00 Moulin, Cory [facility] POCT GLUCOSE (AUTOMATED) 2022-01-11 13:08:00 Moulin, Cory [facility] POCT GLUCOSE (AUTOMATED) 2022-01-11 11:35:00 Moulin, Cory [facility] MAGNESIUM 2022-01-11 10:46:00 [facility] METABOLIC PANEL 2022-01-11 10:46:00 Dawood Alva [facility] (NA, K, CL, CO2, GLUCOSE, Medica l Branch BUN, CREATININE, CA) CBC WITH DIFF 2022-01-11 10:46:00 Artie [facility] POCT GLUCOSE (AUTOMATED) 2022-01-11 04:13:00 Moulin, [facility] ([facility]OM[facility]) 2022-01-10 22:36:00 Moulin, Cory Rinaldi versity [facility] POCT GLUCOSE (AUTOMATED) 2022-01-10 16:44:00 Moulin, Cory Uni versity [facility] POCT GLUCOSE (AUTOMATED) 2022-01-10 13:02:00 Moulin, Cory Rinaldi versity [facility] POCT GLUCOSE (AUTOMATED) 2022-01-10 10:44:00 Moulin, Cory Nimco versity [facility] MAGNESIUM 2022-01-10 07:19:00 Tung [facility] BASIC METABOLIC PANEL 2022-01-10 07:19:00 Cam [facility] (NA, K, CL, CO2, GLUCOSE, Medica l Branch BUN, CREATININE, CA) CBC WITH DIFF 2022-01-10 07:19:00 Cam [facility] POCT GLUCOSE (AUTOMATED) 2022-01-10 04:48:00 Moulin, Cory [facility] POCT GLUCOSE (AUTOMATED) 2022-01-09 17:23:00 Moulin, Cory [facility] POCT GLUCOSE (AUTOMATED) 2022-01-09 12:46:00 Moulin, Cory [facility] BASIC METABOLIC PANEL 2022-01-09 10:50:00 Artie [facility] (NA, K, CL, CO2, GLUCOSE, Medica l Branch BUN, CREATININE, CA) CBC WITH DIFF 2022-01-09 10:50:00 Artie [facility] POCT GLUCOSE (AUTOMATED) 2022-01-09 10:42:00 Moulin, Cory [facility] POCT GLUCOSE (AUTOMATED) 2022-01-09 04:21:00 Moulin, Cory [facility] POCT GLUCOSE (AUTOMATED) 2022-01-08 23:17:00 Moulin, Cory Rinaldi versity [facility] POCT GLUCOSE (AUTOMATED) 2022-01-08 18:14:00 Moulin, Cory Rinaldi versity [facility] POCT GLUCOSE (AUTOMATED) 2022-01-08 13:34:00 Moulin, Cory [facility] POCT GLUCOSE (AUTOMATED) 2022-01-08 10:57:00 Moulin, Cory [facility] BASIC METABOLIC PANEL 2022-01-08 10:48:00 Artie [facility] (NA, K, CL, CO2, GLUCOSE, Medica l Branch BUN, CREATININE, CA) CBC WITH DIFF 2022-01-08 10:48:00 Artie [facility] POCT GLUCOSE (AUTOMATED) 2022-01-08 05:43:00 Moulin, Cory [facility] POCT GLUCOSE (AUTOMATED) 2022-01-07 21:25:00 Moulin, Cory [facility] POCT GLUCOSE (AUTOMATED) 2022-01-07 16:34:00 Moulin, Cory [facility] ABG+COOX+NA+K+GLU+CA2+ 2022-01-07 15:40:00 Shahla Andrade [facility] POCT GLUCOSE (AUTOMATED) 2022-01-07 13:07:00 Moulin, Cory [facility] BASIC METABOLIC PANEL 2022-01-07 07:14:00 Artie [facility] (NA, K, CL, CO2, GLUCOSE, Medica l Branch BUN, CREATININE, CA) CBC WITH DIFF 2022-01-07 07:14:00 Artie [facility] POCT GLUCOSE (AUTOMATED) 2022-01-07 05:53:00 Moulin, Cory Nimco [facility] POCT GLUCOSE (AUTOMATED) 2022-01-06 23:35:00 Moulin, Cory Nimco [facility] POCT GLUCOSE (AUTOMATED) 2022-01-06 22:16:00 Moulin, Cory [facility] XR CHEST 1 VW 2022-01-06 21:37:00 AbShahla [facility] POCT GLUCOSE (AUTOMATED) 2022-01-06 17:02:00 Moulin, Cory [facility] PO[facility] GLUCOSE (AUTOMATED) 2022-01-06 13:41:00 Moulin, Cory [facility] PHOSPHORUS 2022-01-06 09:21:00 AhBethany [facility] MAGNESIUM 2022-01-06 09:21:00 Ahmed [facility] BASIC METABOLIC PANEL 2022-01-06 09:21:00 [facility] (NA, K, CL, CO2, GLUCOSE, Medica l Branch BUN, CREATININE, CA) CBC WITH DIFF 2022-01-06 09:21:00 AhmedB[facility]wood[facility] POCT GLUCOSE (AUTOMATED) 2022-01-05 20:44:00 Moulin, Cory [facility] XR ABDOMEN 1 VW 2022-01-05 17:55:00 [facility] POCT GLUCOSE (AUTOMATED) 2022-01-05 16:54:00 Moulin, Cory [facility] POCT GLUCOSE (AUTOMATED) 2022-01-05 13:09:00 MoulinCory [facility] PHOSPHORUS 2022-01-05 09:06:00 MoulinCory [facility] MAGNESIUM 2022-01-05 09:06:00 Moulin, [facility] BASIC METABOLIC PANEL 2022-01-05 09:06:00 Cory Cee [facility] (NA, K, CL, CO2, GLUCOSE, Medica l Branch BUN, CREATININE, CA) CBC WITH DIFF 2022-01-05 09:06:00 Monaveed [facility] POCT GLUCOSE (AUTOMATED) 2022-01-05 05:07:00 Moulin, Cory [facility] POCT GLUCOSE (AUTOMATED) 2022-01-04 22:10:00 Moulin, Cory [facility] POCT GLUCOSE (AUTOMATED) 2022-01-04 17:14:00 Moulin, Cory [facility] POCT GLUCOSE (AUTOMATED) 2022-01-04 11:15:00 MoulinCory [facility] PHOSPHORUS 2022-01-04 10:42:[address] [facility] MAGNESIUM 2022-01-04 10:42:[address] [facility] BASIC METABOLIC PANEL 2022-01-04 10:42:00 Ashley Burgess [facility] (NA, K, CL, CO2, GLUCOSE, Medica l Branch BUN, CREATININE, CA) VANCOMYCIN TROUGH 2022-01-04 10:42:00 Moulin, [facility] CBC WITH DIFF 2022-01-04 10:42:[address] [facility] CT ABDOMEN PELVIS W 2022-01-04 09:03:00 Abu Phillip, Shahla [facility] POCT GLUCOSE (AUTOMATED) 2022-01-04 06:25:00 Moulin, Cory [facility] POCT GLUCOSE (AUTOMATED) 2022-01-03 21:21:00 Moulin, Cory [facility] XR CHEST 1 VW 2022-01-03 20:48:16 Abu Shahla [facility] POCT GLUCOSE (AUTOMATED) 2022-01-03 16:50:00 Moulin, Cory [facility] POCT GLUCOSE (AUTOMATED) 2022-01-03 12:59:00 Moulin, Cory [facility] POCT GLUCOSE (AUTOMATED) 2022-01-03 10:17:00 Moulin, Cory [facility] AC PANEL 20 + LACTIC ACID 2022-01-03 10:15:00 M[facility]linCory [facility] MAGNES[facility]UM 2022-01-03 08:54:00 Moulin, Cory [facility] BASIC METABOLIC PANEL 2022-01-03 08:54:00 MoCory lucio [facility] (NA, K, CL, CO2, GLUCOSE, Medica l Branch BUN, CREATININE, CA) CBC WITH DIFF 2022-01-03 08:54:00 Monaveed, [facility] POCT GLUCOSE (AUTOMATED) 2022-01-03 04:48:00 Moulin, Cory [facility] POCT GLUCOSE (AUTOMATED) 2022-01-02 22:15:00 Moulin, Cory [facility] SPUTUM CULTURE 2022-01-02 19:39:00 Abu Shahla [facility] XR KUB 2022-01-02 18:17:54 Shahla And[facility] XR KUB 2022-01-02 17:07:05 Meño Diaz [facility] POCT GLUCOSE (AUTOMATED) 2022-01-02 16:26:00 MoCory lucio [facility] CT HEAD WO CONTRAST 2022-01-02 15:49:23 Shahla Andrade [facility] XR CHEST 1 VW 2022-01-02 13:45:16 Meño Stack [facility] AC PANEL 20 + LACTIC ACID 2022-01-02 12:37:00 Meño Stack [facility] POCT GLUCOSE (AUTOMATED) 2022-01-02 12:26:00 Cory Cee [facility] BASIC METABOLIC PANEL 2022-01-02 10:42:00 Cory Cee [facility] (NA, K, CL, CO2, GLUCOSE, Medica l Branch BUN, CREATININE, CA) BLOOD CULTURE SCREEN 2022-01-02 10:41:00 MoCory lucio [facility] CBC WITH DIFF 2022-01-02 10:41:00 MoCory lucio [facility] GLYCOSYLATED HEMOGLOBIN 2022-01-02 10:41:00 Shahla Andrade [facility] (A1C) [facility] BLOOD CULTURE SCREEN 2022-01-02 10:40:00 Cory Cee [facility] RESPIRATORY CULTURE 2022-01-02 10:40:00 MoCory lucio [facility] URINE CULTURE 2022-01-02 10:39:00 MoCory lucio [facility] MRSA / MSSA SCREEN BY 2022-01-02 10:39:00 Cory Cee [facility] PCR, [facility] ABG+COOX+NA+K+GLU+CA2+ 2022-01-02 10:17:00 MoCory lucio [facility] AC PANEL 21 + LACTIC ACID 2022-01-02 03:53:00 Janis Valencia [facility] XR CHEST 1 VW 2022-01-02 02:59:00 Janis Valencia [facility] URINALYSIS 2022-01-02 02:58:00 Janis Valencia [facility] LACTIC ACID WHOLE BLOOD 2022-01-02 02:26:[address] [facility] AC PANEL 21 + LACTIC ACID 2022-01-02 02:26:00 Janis Valencia [facility] BLOOD CULTURE SCREEN 2022-01-02 02:25:00 Janis Valencia [facility] TROPONIN I 2022-01-02 02:25:00 Janis Valencia [facility] COMP. METABOLIC PANEL 2022-01-02 02:25:00 Janis Valencia [id number] CBC WITH DIFF 2022-01-02 02:25:00 Janis Valencia [facility] N-TERMINAL PRO-BNP 2022-01-02 02:25:00 Janis Valencia [facility] HB ECG ROUTINE & RHYTHM 2022-01-02 02:14:[address] [facility] HOSPITAL ADMISSION 2022-01-01 05:01:00 Doctor Unassigned, [facility] XR CHEST 1 VW 2021-12-09 04:15:00 Duke Velazquez [facility] LIPASE 2021-12-09 03:52:00 Duke Velazquez [facility] TROPONIN I 2021-12-09 03:52:00 Duke Velazquez [facility] COMP. METABOLIC PANEL 2021-12-09 03:52:00 Duke Velazquez [facility] ([id number]) [facility] CBC WITH DIFF 2021-12-09 03:52:00 Duke Velazquez [facility] N-TERMINAL PRO-BNP 2021-12-09 03:52:00 Duke Velazquez [facility] CONSENT/REFUSAL FOR 2021-12-09 03:24:16 Doctor Unasssheila [facility] DIAGNOSIS AND TREATMENT [facility] POCT GLUCOSE (AUTOMATED) 2021-09-23 17:13:00 Paula Rowe [facility] POCT GLUCOSE (AUTOMATED) 2021-09-23 13:53:00 Paula Rowe [facility] BASIC METABOLIC PANEL 2021-09-23 10:22:00 Laurie Wilkins [facility] (NA, K, CL, CO2, GLUCOSE, Medica l Branch BUN, CREATININE, CA) CBC WITHOUT DIFF 2021-09-23 10:22:00 Laurie Wilkins [facility] POCT GLUCOSE (AUTOMATED) 2021-09-23 10:12:00 Paula Rowe [facility] POCT GLUCOSE (AUTOMATED) 2021-09-23 05:38:00 Paula Rowe [facility] POCT GLUCOSE (AUTOMATED) 2021-09-23 02:14:00 Paula Rowe [facility] POCT GLUCOSE (AUTOMATED) 2021-09-22 22:20:00 Paula Rowe [facility] POCT GLUCOSE (AUTOMATED) 2021-09-22 19:52:00 Paula Rowe [facility] TRANSTHORACIC ECHO (TTE) 2021-09-22 18:44:47 Cabrera Armstrong [facility] COMPLETE W/ CONTRAST Medical [facility] POCT GLUCOSE (AUTOMATED) 2021-09-22 18:07:00 Paula Rowe [facility] EKG-12 LEAD 2021-09-22 13:45:05 Paula Rowe o eleonora [facility] POCT GLUCOSE (AUTOMATED) 2021-09-22 13:20:00 Paula Rowe [facility] PNEUMOCOCCAL ANTIGEN 2021-09-22 12:39:00 Cabrera Armstrong [facility] MRSA / MSSA SCREEN BY 2021-09-22 12:34:[address] [facility] BY PCR 2021-09-22 12:34:00 Nikos [facility] GALV ONLY - INFLUENZA A B 2021-09-22 12:33:00 Cabrera Armstrong [facility] RSV PCR [facility] COVID-19 (MOLECULAR 2021-09-22 12:33:00 Cecilia Jones [facility] TESTING [facility] NUCLEIC ACID AMPLIFICATION) SPUTUM CULTURE 2021-09-22 12:30:00 Nathaniel [facility] AC PANEL 20 + LACTIC ACID 2021-09-22 12:16:00 Cabrera Armstrong [facility] PHOSPHORUS 2021-09-22 12:15:00 Nathaniel [facility] MAGNESIUM 2021-09-22 12:15:00 [facility] PANEL 2021-09-22 12:15:00 [facility] ([id number]) (ALB,T.PRO,BILI Medical Branch T,BU/BC,ALT,AST,ALK PHOS) BASIC METABOLIC PANEL 2021-09-22 12:15:00 [facility] (NA, K, CL, CO2, GLUCOSE, Medica l Branch BUN, CREATININE, CA) CBC WITH DIFF 2021-09-22 12:15:00 [facility] PROTHROMBIN TIME / INR 2021-09-22 12:15:00 Armstrong [facility] BLOOD CULTURE SCREEN 2021-09-22 12:13:00 Nathaniel [facility] AC PANEL 20 + LACTIC ACID 2021-09-22 06:41:00 Paula Rowe [facility] TROPONIN I 2021-09-22 06:36:00 Paula Rowe [facility] COMP. METABOLIC PANEL 2021-09-22 06:36:00 Paula Rowe [facility] ([id number]) Medical Branch CBC WITH DIFF 2021-09-22 06:36:00 Paula Rowe [facility] GLYCOSYLATED HEMOGLOBIN 2021-09-22 06:36:00 [facility] (A1C[facility] [place] PROTHROMBIN TIME / INR 2021-09-22 06:36:00 Paula Rowe [facility] ACTIVATED PARTIAL 2021-09-22 06:36:00 Paula Rowe [facility] THRMPLAS SHREYA [facility] N-TERMINAL PRO-BNP 2021-09-22 06:36:00 Paula Rowe [facility] COVID-19 (ID NOW RAPID 2021-09-22 06:36:00 Paula Rowe [facility] TESTING) Medical Branch LAB ONLY COVID 2021-09-22 06:36:00 Paula Rowe [facility] INTERPRETATION [facility] XR CHEST 1 VW 2021-09-22 06:26:48 Paula Rowe [facility] HB ECG ROUTINE & RHYTHM 2021-09-22 06:17:39 Paula Rowe [facility] HOSPITAL ADMISSION 2021-09-22 06:01:00 Doctor Arturo [facility] [place] CONSENT/REFUSAL FOR 2021-09-22 06:00:03 Doctor Arturo [facility] DIAGNOSIS AND TREATMENT [facility] [place] DME/SUPPLY JUSTIFICATION 2021-08-01 06:01:00 Doctor Arturo, [facility] [place] Encounters Start End Encounter Admission Attending Care Care Encounter Source Date/Time Date/Time Type Type Clinicians Facility Department ID 2022-08-05 Emergency [facility] [id number] Univers 00:34:25 ity [facility] 2022-09-09 2022-09-09 [facility] [id number] Univers 06:30:00 08:46:00 JOSLYN shipman [facility] 2022-09-09 2022-09-09 [facility] [id number] Univers 06:30:00 08:46:00 Joslyn BOYD [id number] ity [facility] [id number] [facility] [id number] [facility] 084 Branch 2022-08-12 2022-08-12 Transition [place] Arri[place] [id number] Univers 00:00:00 00:00:00 of Care Alessandra JEFFREY [id number] i ty of [place] [id number] [facility] [id number] [facility] 403 Branch 2022-08-05 2022-08-10 Inpatient U CARLOS [facility] ROBLES [id number] Univers 00:39:00 17:00:00 COREY umberto [facility] 2022-08-05 2022-08-10 [facility] Jonas Hernandez [facility] [id number] Univers 00:39:00 17:00:00 Encounter Corey Gonzalez DEB [id number] [facility] [id number] [facility] [id number] [place] [address] [place] 2022-06-04 2022-06-04 Emergency X [facility] ERT [id number] Univers 20:54:00 23:53:00 GEN shipman [facility] 2022-06-04 2022-06-04 Emergency [facility] [id number] Univers 20:54:00 23:53:00 Gen BOYD 350.1.13.10 i ty [facility] 4.2.7.2.686 [facility] [id number] [address] 2022-05-12 2022-05-13 Emergency [facility] [id number] Univers 22:51:00 03:10:00 PAULA shipman [facility] 2022-05-12 2022-05-13 [facility] [id number] Univers 22:51:00 03:10:00 Paula BOYD [id number] i ty of [place] 4.2.7.2.686 [facility] [id number] [address] 2022-05-02 2022-05-02 Emergency X Sanjay HENRY [facility] ERT [id number] Univers 00:17:00 02:29:00 umberto [facility] 2022-05-02 2022-05-02 Emergency Sanjay Henry [facility] [id number] Univers 00:17:00 02:29:00 Janel BOYD 350.1.13.10 i ty [place] [id number] [place] [address] [place] 2022-04-28 2022-04-29 Emergency X [facility] ERT [id number] Univers 21:41:00 00:50:00 PAULA ity [facility] 2022-04-28 2022-04-29 Emergency [facility] [id number] Univers 21:41:00 00:50:00 Paula BOYD 350.1.13.10 i ty of [place] [id number] [address] 2022-03-02 2022-03-02 Transition [place] [id number] Univers 00:00:00 00:00:00 of Care Alessandra EMY [id number] [id number] [id number] [address] 2022-02-20 2022-02-27 Inpatient [facility] [id number] Univers 14:58:00 17:54:00 [facility] it o [facility] 2022-02-20 2022-02-27 [facility] Paula Rowe 1.2.840.1 [id number] Univers 14:58:00 17:54:00 Encounter Kevin Lebron 350.1.13.10 ity of [facility] 4.2.7.2. 686 [place] [id number] [address] 2022-02-18 2022-02-18 Transition [place] [id number] Univers 00:00:00 00:00:00 of Care Alessandra EMY [id number] [id number] [id number] [address] 2022-02-11 2022-02-17 Inpatient X SCARLETT [facility] ROBL[facility] [id number] Univers 19:55:00 18:10:00 VALERIANO ity [facility] 2022-02-11 2022-02-17 [facility] Paula Rowe [facility] 1.2.840.1 [id number] Univers 19:55:00 18:10:00 Encounter Valeriano Pantoja 350.1.13.1 0 ity of [place] 4.2.7.2.686 [facility] [id number] [facility] ([facility]) 2022-02-02 2022-02-02 Transition [place] 1.2.840.114 [id number] Univers 00:00:00 00:00:00 of Care Alessandra M JEFFREY 350.1.13.10 i [place] [id number] [facility] [address] 2022-01-27 2022-01-31 Inpatient X [facility] [id number] Univers 20:40:00 13:51:00 ADNAN ity [facility] 2022-01-27 2022-01-31 [facility] Paula Rowe [facility] 1.2.840.1 14 [id number] Univers 20:40:00 13:51:00 Encounter Jonas [facility] 350.1.13.10 ity of [place] 4.2.7.2.686 [facility] [id number] [facility] 0[address] Branch 2022-01-28 2022-01-28 Telephone [facility] 1.2.840.114 [id number] Univers 00:00:00 00:00:00 Layne HEALTH 350.1.13.10 it y of [place] 4.2.7.2.686 [facility] [facility] - [phone] [facility] 144 Branch 2022-01-13 2022-01-13 Transition [place] Arrieta 1.2.840.114 [id number] Univers 00:00:00 00:00:00 of Care Alessandra M JEFFREY 350.1.13.10 i [place] [phone] [facility] 403 Branch 2022-01-12 2022-01-12 Emergency [facility] ERT [id number] Univers 17:23:00 22:19:00 JOSLYN ity [facility] 2022-01-12 2022-01-12 Emergency [facility] 1.2.840.114 [id number] Univers 17:23:00 22:19:00 Joslyn BOYD 350.1.13.10 [facility] [place].2.[place] [id number] [place] [address]694 Branch 2022-01-01 2022-01-12 Inpatient X [facility] ROBLES [id number] Univers 21:18:00 14:06:00 umberto STACK [facility] 2022-01-01 2022-01-12 [facility] Lashondacarmen Janis Pereira [facility] 1 .2.840.114 [id number] Univers 21:18:00 14:06:00 Encounter Cory Cee 350.1.13.10 ity of [place]ah[place] 4.2.7.2.686 [facility] [id number] [facility] 111 Branch (CLC) 2021-12-08 2021-12-09 Emergency X [facility] ERT [id number] Univers 22:28:00 00:58:00 DUKE ity [facility] 2021-12-08 2021-12-09 [facility] 1.2.840.114 [id number] Univers 22:28:00 00:58:00 [facility] BOYD 350.1.13.10 ity of [place] [id number] [place] 146694 Branch 2021-09-24 2021-09-24 Transition [place] Brewer 1.2.840.114 [id number] Univers 00:00:00 00:00:00 of Care Patria JEFFREY 350.1.13.10 [place] [id number] [facility] 403 [address] 2021-09-22 2021-09-23 Inpatient U ENE GIVENS [facility] MPU [id number] Univers 00:05:00 15:03:00 ENE GIVENS i ty of [facility] 2021-09-22 2021-09-23 Hospital Paula Rowe 1.2.840.1 14 [id number] Univers 00:05:00 15:03:00 Encounter Ene Givens 350.1.13.10 ity of HOSPITAL 4.2.7.2.686 Compa as [id number] [facility] 085 Branch 2021-08-01 2021-08-01 Orders Doctor KATELYN 1.2.840.114 [id number] Univers 00:00:00 00:00:00 Only Unassigned, JACKIE 350.1.13.10 ity of [place] [facility] 4.2.7.2.686 Compa as [id number] [facility] 009 Branch 2021-07-23 2021-07-23 Office [facility] 1.2.840.114 [id number] Univers 14:15:00 14:30:00 Visit [facility] 350.1.13.10 it y of [place] 4.2.7.2.686 [place] [facility] - [id number] [facility] 144 Branch 2021-07-23 2021-07-23 Out[facility] [id number] Univers 14:15:00 14:15:00 [facility] 2021-07-23 2021-07-23 Outpatient R [facility] [id number] Univers 14:15:00 14:15:00 LAYNE ity [facility] 2021-07-23 2021-07-23 Telephone [facility] 1.2.840.114 [id number] Univers 00:00:00 00:00:00 Layne REJI 350.1.13.10 i ty [facility] [place]7.2.[place] [id number] [facility] 144 [address] 2021-06-25 2021-06-26 Emergency X JOS [facility] ERT [id number] Univers 21:58:00 03:17:00 APARNA [facility] 2021-06-25 2021-06-26 [facility] 1.2.536.642 [id number] Univers 21:58:00 03:17:00 Aparna BOYD 350.1.13.10 [facility] 4.2.7.2.686 [facility] [id number] [address] 2021-02-19 2021-02-19 Outpatient [facility] [id number] Univers 00:00:00 00:00:00 [facility] 2020-02-01 2020-02-01 Outpatient Andrea [facility] [id number] Univers 00:00:00 00:00:00 [facility] 2019-09-01 2019-09-01 Outpatient Andrea [facility] 1025 [id number] Univers 14:41:55 23:59:00 GAB [facility] 2019-08-04 2019-08-04 Outpatient Andrea [facility] [id number] Univers 17:13:44 23:59:00 JUNE [facility] Results Test Description Test Time Test Comments Results Result Comments Source POCT GLUCOSE (AUTOMATED) 2022-08-10 20:26:18 Test Item Value Reference Range Interpretation Comme nts POCT GLU (test code = 6548630512) 178 mg/dL 70-110 H Lab Interpretation (test code = 45025-5) Abnormal [facility] GLUCOSE (AUTOMATED)2022-08-10 20:26:17 Test Item Value Reference Range Interpretation Comments POCT GLU (test code = 9036634891) 134 mg/dL 70-110 H Lab Interpretation (test code = Abnormal 85124-5) [facility] GLUCOSE (AUTOMATED)2022-08-10 09:35:52 Test Item Value Reference Range Interpretation Comments POCT GLU (test code = 9933935260) 240 mg/dL 70-110 H Lab Interpretation (test code = Abnormal 47723-9) [facility] GLUCOSE (AUTOMATED)2022-08-10 06:09:42 Test Item Value Reference Range Interpretation Comments POCT GLU (test code = 1988915972) 219 mg/dL 70-110 H Lab Interpretation (test code = Abnormal 71496-1) [facility] GLUCOSE (AUTOMATED)2022-08-10 02:27:50 Test Item Value Reference Range Interpretation Comments POCT GLU (test code = 3941368339) 264 mg/dL 70-110 H Lab Interpretation (test code = Abnormal 12134-8) [facility] GLUCOSE (AUTOMATED)2022-08-09 22:32:46 Test Item Value Reference Range Interpretation Comments POCT GLU (test code = 0083729416) 327 mg/dL 70-110 H Lab Interpretation (test code = Abnormal 18356-3) [facility] GLUCOSE (AUTOMATED)2022-08-09 13:19:52 Test Item Value Reference Range Interpretation Comments POCT GLU (test code = 0066951379) 196 mg/dL 70-110 H Lab Interpretation (test code = Abnormal 11082-5) [facility] 12:10:11 Test Item Value Reference Range Interpretation Comments MAGNESIUM (test code = 3016885612) 2.5 mg/dL 1.7-2.4 H Lab Interpretation (test code = Abnormal 29545-6) [facility] (NA, K, CL, CO2, GLUCOSE, BUN, CREATININE, CA)2022-08-09 12:10:06 Test Item Value Reference Range Interpretation Comments NA (test code = 137 mmol/L 135-145 6847118477) K (test code = 4.3 mmol/L 3.5-5.0 0725043699) CL (test code = 101 mmol/L 98-108 1276035422) CO2 TOTAL (test code = 35 mmol/L 23-31 H 2583971526) AGAP (test code = 2-16 L 1042731130) BUN (test code = 22 mg/dL 7-23 9026305689) GLUCOSE (test code = 186 mg/dL 70-110 H 5607391891) CREATININE (test code = 0.82 mg/dL 0.50-1.04 9975801350) CALCIUM (test code = 8.2 mg/dL 8.6-10.6 L 8749814827) eGFR (test code = mL/min/1.73m2 9790813530) JENNIFFER (test code = JENNIFFER) Association of [...] tests). Lab Interpretation Abnormal (test code = 12680-4) [facility] 12:09:46 Test Item Value Reference Range Interpretation Comments PHOSPHORUS (test code = 2546919543) 3.2 mg/dL 2.5-5.0 Lab Interpretation (test code = Normal 42127-7) [facility] WITH [id number] 12:03:07 Test Item Value Reference Range Interpretation Comments WBC (test code = See_Comment [Automated 9390-2) message] The sy stem which generated this result transmitted reference range : 4.30 - 11.10 10*3/?L. The reference range was not used to interpret this result as normal/abnormal . RBC (test code = See_Comment L [Automated 519-8) message] The sy stem which generated this [...] RDW-SD (test code = 47.1 fL 39.0-49.9 66398-9) RDW-CV (test code = 14.6 % 12.0-15.5 788-0) PLT (test code = See_Comment [Automated 777-3) message] The sy stem which generated this result transmitted reference range : 166 - 358 10*3/ ?L. The reference r josselyn was not used to interpret this result as normal/abnormal . MPV (test code = 9.5 fL 9.5-12.9 24872-8) NRBC/100 WBC (test See_Comment [Automat ed code = 5038593408) message] The system which generated this result transmitted reference range : 0.0 - 10.0 /100 WBCs. The refer ence range was not u sed to interpret th is result as normal/abnormal . NRBC x10^3 (test code See_Comment [Auto mated = 8886911927) message] The s ystem which generated this result transmitted reference range : 10*3/?L. The reference range was not used to interpret this result as normal/abnormal . GRAN MAT (NEUT) % 85.8 % (test code = 770-8) IMM GRAN % (test code 2.50 % = 9368972810) LYMPH % (test code = 6.7 % 736-9) MONO % (test code = 4.8 % 5905-5) EOS % (test code = 0.1 % 713-8) BASO % (test code = 0.1 % 706-2) GRAN MAT x10^3(ANC) 7.74 10*3/uL 1.88-7.09 H (test code = 9228769538) IMM GRAN x10^3 (test 0.23 10*3/uL 0.00-0.06 H code = 6888603175) LYMPH x10^3 (test code 0.60 10*3/uL 1.32-3.29 L = 731-0) MONO x10^3 (test code 0.43 10*3/uL 0.33-0.92 = 742-7) EOS x10^3 (test code = 0.03-0.39 L 711-2) BASO x10^3 (test code 0.01-0.07 = 704-7) Lab Interpretation Abnormal (test code = 71035-8) [facility] GLUCOSE (AUTOMATED)2022-08-09 11:54:17 Test Item Value Reference Range Interpretation Comments POCT GLU (test code = 3528431426) 202 mg/dL 70-110 H Lab Interpretation (test code = Abnormal 65946-1) [facility] GLUCOSE (AUTOMATED)2022-08-09 06:19:48 Test Item Value Reference Range Interpretation Comments POCT GLU (test code = 8409852810) 231 mg/dL 70-110 H Lab Interpretation (test code = Abnormal 56497-4) [facility] GLUCOSE (AUTOMATED)2022-08-09 02:32:58 Test Item Value Reference Range Interpretation Comments POCT GLU (test code = 0337015602) 316 mg/dL 70-110 H Lab Interpretation (test code = Abnormal 05347-0) [facility] GLUCOSE (AUTOMATED)2022-08-09 02:28:52 Test Item Value Reference Range Interpretation Comments POCT GLU (test code = 4338350687) 363 mg/dL 70-110 H Lab Interpretation (test code = Abnormal 10673-6) [facility] GLUCOSE (AUTOMATED)2022-08-08 17:32:51 Test Item Value Reference Range Interpretation Comments POCT GLU (test code = 1315574761) 201 mg/dL 70-110 H Lab Interpretation (test code = Abnormal 60481-2) [facility] GLUCOSE (AUTOMATED)2022-08-08 17:32:51 Test Item Value Reference Range Interpretation Comments POCT GLU (test code = 7281397005) 251 mg/dL 70-110 H Lab Interpretation (test code = Abnormal 42963-0) [facility] GLUCOSE (AUTOMATED)2022-08-08 10:02:25 Test Item Value Reference Range Interpretation Comments POCT GLU (test code = 4473484295) 153 mg/dL 70-110 H Lab Interpretation (test code = Abnormal 12671-6) [facility] GLUCOSE (AUTOMATED)2022-08-08 06:20:09 Test Item Value Reference Range Interpretation Comments POCT GLU (test code = 9741791612) 224 mg/dL 70-110 H Lab Interpretation (test code = Abnormal 59403-1) [facility] GLUCOSE (AUTOMATED)2022-08-08 02:43:59 Test Item Value Reference Range Interpretation Comments POCT GLU (test code = 2704863402) 256 mg/dL 70-110 H Lab Interpretation (test code = Abnormal 20247-5) [facility] GLUCOSE (AUTOMATED)2022-08-07 22:28:36 Test Item Value Reference Range Interpretation Comments POCT GLU (test code = 5853342642) 273 mg/dL 70-110 H Lab Interpretation (test code = Abnormal 99184-3) [facility]2022-08-07 22:15:07 Test Item Value Reference Range Interpretation Comments Height (test code = in 6666413061) Weight (test code = lbs 0894627093) Systolic BP (test code = mmHg 5098988412) Diastolic BP (test code mmHg = 5916394623) Heart Rate (test code = bpm 0502288097) BSA (test code = 1.96 m2 6701241328) Ao root diam (test code 3.30 cm = 9775856993) Aortic root (test code = 3.3 cm 6707809014) Ao root annulus (test 3.3 cm code = 1668354110) LVOT diameter (test code 1.80 cm = 0465086658) LVOT area (test code = 2.60 cm2 8657334853) LVIDD (test code = 3.50 cm 3621963821) Left Ventricular End 51.9 mL Diastolic Volume by Teichholz Method (test code = 5606430) IVS (test code = 1.24 cm 0343253926) Interventricular Septum 1.24 cm Diastolic Thickness by 2D (test code = 8505590) LVPWD (test code = 1.24 cm 8069291881) PW (test code = 1.24 cm 0.6-1.3 8666669820) EF(Teich) (test code = 58.70 % 4772496824) LVIDS (test code = 2.46 cm 3502885207) Left Ventricular End 21.4 mL Systolic Volume by Teichholz Method (test code = 1752037) FS (test code = 30 % 0963320065) EF - 2D (test code = 58.70 % 91785037) LA size (test code = 2.9 cm 6938033173) MV Peak E Marva (test code 81.4 cm/s = 1296319584) MV stenosis pressure 1/2 76.6 ms time (test code = 9016106956) E wave decelartion time 0.26 s (test code = 5875784126) MV Peak A Marva (test code 87.8 cm/s = 4782174157) E/A ratio (test code = ratio 9810069569) MV Prop V (test code = 139.40 cm/s 2918672413) MV E/e' septal (test 7.4 cm/s code = 8766276672) Tapse (test code = 1.61 cm 8633840849) LVOT stroke volume (test 53.30 cm3 code = 5006283313) LVOT peak marva (test code 128.1 cm/s = 8485458535) LVOT mn grad (test code mmHg = 0590293888) AV LVOT peak gradient mmHg (test code = 8100597870) LVOT peak VTI (test code 20.9 cm = 2502818119) LV V1 mean (test code = 86.80 cm/s 3361066289) Aortic valve mean 119.8 cm/s velocity (test code = 0990630955) Ao peak marva (test code = 175.1 cm/s 2164805428) Ao VTI (test code = 28.5 cm 4613738772) AV area by cont VTI 1.9 cm2 (test code = 7842207479) AV area peak marva (test 1.9 cm2 code = 0754428990) Ao max PG (test code = 12.30 mm[Hg] 6644349240) AV peak gradient (test mmHg code = 1357495859) AV valve area (test code 1.87 cm2 = 8207829538) AV mean gradient (test mmHg code = 0493144243) Radiology Study observation (narrative) (test code = 81161-8) JENNIFFER (test code = JENNIFFER) Table formatting [...] mL of Lumason ultrasound enhancing agent used. [facility]2022-08-07 17:28:57 Test Item Value Reference Range Interpretation Comments POCT GLU (test code = 168 mg/dL 70-110 H Notifi ed Provider 0569887868) Lab Interpretation (test Abnormal code = 99318-3) [facility] STIMULATING [id number] 14:57:11 Test Item Value Reference Range Interpretation Comments TSH (test code = See_Comment Biotin has been 6369364939) reported to cau se a negative bias, interpret resul ts relative to pat ient's use of biotin. [Automated mess age] The system whic Epiclist generated this result transmitted ref erence range: 0.45 - 4 .70 mIU/L. The refe rence range was not u sed to interpret this result as normal/abnor mal. Lab Interpretation (test Normal code = 80780-7) [facility] GLUCOSE (AUTOMATED)2022-08-07 13:46:07 Test Item Value Reference Range Interpretation Comments POCT GLU (test code = 9846170502) 180 mg/dL 70-110 H Lab Interpretation (test code = Abnormal 77871-5) [facility] GLUCOSE (AUTOMATED)2022-08-07 12:34:16 Test Item Value Reference Range Interpretation Comments POCT GLU (test code = 0383714392) 198 mg/dL 70-110 H Lab Interpretation (test code = Abnormal 54075-6) [facility] [id number] 12:27:41 Test Item Value Reference Interpretation Comments Range TROPONIN I (test 0.005 ng/mL See_Comment [Automated code = 9094723447) message] The system which generated this result [...] biotin. Lab Interpretation Normal (test code = 92094-3) [facility] [id number] 12:24:19 Test Item Value Reference Range Interpretation Comments NT-proBNP (test code 332 pg/mL See_Comment H [Autom ated = 2241941109) message] The system which generated this result transmitted reference range : <=125. The reference range was not used to interpret this result as normal/abnormal . JENNIFFER (test code = JENNIFFER) Biotin has been reported to cause a negative bias, interpret results relative to patient's use of biotin. Lab Interpretation Abnormal (test code = 84563-3) [facility]. METABOLIC PANEL (93699)2022-08-07 12:17:19 Test Item Value Reference Range Interpretation Comments NA (test code = 137 mmol/L 135-145 0977397581) K (test code = 4.3 mmol/L 3.5-5.0 8111672392) CL (test code = 103 mmol/L 98-108 5925163501) CO2 TOTAL (test code = 30 mmol/L 23-31 5771984311) AGAP (test code = 2-16 6851871839) BUN (test code = 30 mg/dL 7-23 H 2239634263) GLUCOSE (test code = 198 mg/dL 70-110 H 9911588430) CREATININE (test code = 0.93 mg/dL 0.50-1.04 3276391402) TOTAL BILI (test code = 0.4 mg/dL 0.1-1.6 8667433988) CALCIUM (test code = 8.3 mg/dL 8.6-10.6 L 0680810157) T PROTEIN (test code = 6.0 g/dL 6.3-8.2 L 4668225257) ALBUMIN (test code = 3.2 g/dL 3.5-5.0 L 0391088203) ALK PHOS (test code = 70 U/L 34-122 7418049807) ALTv (test code = 23 U/L 5-35 1742-6) AST(SGOT) (test code = 22 U/L 13-40 5725261205) eGFR (test code = mL/min/1.73m2 2733637524) JENNIFFER (test code = JENNIFFER) Association of [...] tests). Lab Interpretation Abnormal (test code = 33417-2) [facility] 12:17:19 Test Item Value Reference Range Interpretation Comments MAGNESIUM (test code = 4038357256) 2.4 mg/dL 1.7-2.4 Lab Interpretation (test code = Normal 15362-0) [facility]2023-[facility]-13 12:16:59 Test Item Value Reference Range Interpretation Comments PHOSPHORUS (test code = 2799854840) 3.3 mg/dL 2.5-5.0 Lab Interpretation (test code = Normal 36781-2) [facility] WITH [id number] 12:16:18 Test Item Value Reference Range Interpretation Comments WBC (test code = See_Comment H [Automated 1890-2) message] The system which generated this result transmit alden reference range : 4.30 - 11.10 10*3/?L. The reference range was not used to interpret this result as normal/abnormal . RBC (test code = See_Comment L [Automated 449-8) message] The system which generated this result [...] (test code = 50.2 fL 39.0-49.9 H 69327-2) RDW-CV (test code = 15.1 % 12.0-15.5 788-0) PLT (test code = See_Comment [Automated 777-3) message] The system which generated this result transmit alden reference range : 166 - 358 10*3/ ?L. The reference range was not u sed to interpret th is result as normal/abnormal . MPV (test code = 10.0 fL 9.5-12.9 01967-1) NRBC/100 WBC (test See_Comment [Automat ed code = 0367384464) message] The system which generated this result transmit alden reference range : 0.0 - 10.0 /100 WBCs. The reference range was not used to interpret this result as normal/abnormal . NRBC x10^3 (test code See_Comment [Auto mated = 9416213417) message] The system which generated this result transmit alden reference range : 10*3/?L. The reference range was not used to interpret this result as normal/abnormal . GRAN MAT (NEUT) % 87.7 % (test code = 770-8) IMM GRAN % (test code 1.10 % = 8008625618) LYMPH % (test code = 7.7 % 736-9) MONO % (test code = 3.4 % 5905-5) EOS % (test code = 0.0 % 713-8) BASO % (test code = 0.1 % 706-2) GRAN MAT x10^3(ANC) 11.83 10*3/uL 1.88-7.09 H (test code = 9103428605) IMM GRAN x10^3 (test 0.15 10*3/uL 0.00-0.06 H code = 2577585719) LYMPH x10^3 (test code 1.04 10*3/uL 1.32-3.29 L = 731-0) MONO x10^3 (test code 0.46 10*3/uL 0.33-0.92 = 742-7) EOS x10^3 (test code = 0.03-0.39 L 711-2) BASO x10^3 (test code 0.01-0.07 = 704-7) Lab Interpretation Abnormal (test code = 21984-0) [facility]/BILI [id number] 12:16:18 Test Item Value Reference Range Interpretation Comments BILI CONJ (test code = 0992413835) 0.0 mg/dL 0.0-0.3 BILI UNCON (test code = 0370577925) 0.2 mg/dL 0.1-1.1 Lab Interpretation (test code = Normal 35773-0) [facility] GLUCOSE (AUTOMATED)2022-08-07 10:20:14 Test Item Value Reference Range Interpretation Comments POCT GLU (test code = 4734143132) 227 mg/dL 70-110 H Lab Interpretation (test code = Abnormal 58550-9) [facility] GLUCOSE (AUTOMATED)2022-08-07 05:43:17 Test Item Value Reference Range Interpretation Comments POCT GLU (test code = 0735141201) 162 mg/dL 70-110 H Lab Interpretation (test code = Abnormal 74325-8) [facility] GLUCOSE (AUTOMATED)2022-08-07 02:28:42 Test Item Value Reference Range Interpretation Comments POCT GLU (test code = 8863386388) 229 mg/dL 70-110 H Lab Interpretation (test code = Abnormal 22135-1) [facility] GLUCOSE (AUTOMATED)2022-08-06 17:18:17 Test Item Value Reference Range Interpretation Comments POCT GLU (test code = 7168512295) 223 mg/dL 70-110 H Lab Interpretation (test code = Abnormal 60448-5) [facility] HospitalLameic Acid Whole [id number] 13:38:44 Test Item Value Reference Range Interpretation Comments LACTIC ACID (test code = 1.93 mmol/L 0.50-2.20 2784047480) Lab Interpretation (test code = Normal 96813-8) [facility]2022-08-06 13:29:26 Test Item Value Reference Range Interpretation Comments POCT GLU (test code = 4435881897) 261 mg/dL 70-110 H Lab Interpretation (test code = Abnormal 90050-1) [facility] [id number] 12:40:18 Test Item Value Reference Interpretation Comments Range TROPONIN I (test 0.002 ng/mL See_Comment [Automated code = 9731163438) message] The system which generated this result [...] biotin. Lab Interpretation Normal (test code = 42714-5) [facility] [id number] 12:37:16 Test Item Value Reference Range Interpretation Comments NT-proBNP (test code 480 pg/mL See_Comment H [Autom ated = 7112509418) message] The system which generated this result transmitted reference range : <=125. The reference range was not used to interpret this result as normal/abnormal . JENNIFFER (test code = JENNIFFER) Biotin has been reported to cause a negative bias, interpret results relative to patient's use of biotin. Lab Interpretation Abnormal (test code = 50974-3) [facility] METABOLIC PANEL (91584)2022-08-06 12:28:53 Test Item Value Reference Range Interpretation Comments NA (test code = 136 mmol/L 135-145 9262402630) K (test code = 4.3 mmol/L 3.5-5.0 7648246466) CL (test code = 99 mmol/L 98-108 7375515896) CO2 TOTAL (test code = 36 mmol/L 23-31 H 8040189037) AGAP (test code = 2-16 L 8858064964) BUN (test code = 30 mg/dL 7-23 H 6707701984) GLUCOSE (test code = 246 mg/dL 70-110 H 0834667433) CREATININE (test code = 0.94 mg/dL 0.50-1.04 2197861943) TOTAL BILI (test code = 0.5 mg/dL 0.1-1.8 3063051536) CALCIUM (test code = 8.6 mg/dL 8.6-10.6 2238129865) T PROTEIN (test code = 5.9 g/dL 6.3-8.2 L 6701973964) ALBUMIN (test code = 3.2 g/dL 3.5-5.0 L 7714925441) ALK PHOS (test code = 81 U/L 34-122 5590394920) ALTv (test code = 24 U/L 5-35 1742-6) AST(SGOT) (test code = 23 U/L 13-40 0965172868) eGFR (test code = mL/min/1.73m2 6778926956) JENNIFFER (test code = JENNIFFER) Association of [...] tests). Lab Interpretation Abnormal (test code = 47667-9) [facility] 12:28:53 Test Item Value Reference Range Interpretation Comments MAGNESIUM (test code = 7396369959) 2.2 mg/dL 1.7-2.4 Lab Interpretation (test code = Normal 65336-9) [facility]2023-[facility]-12 12:28:33 Test Item Value Reference Range Interpretation Comments PHOSPHORUS (test code = 8423396329) 2.9 mg/dL 2.5-5.0 Lab Interpretation (test code = Normal 51508-5) [facility] [id number] 12:28:13 Test Item Value Reference Range Interpretation Comments CK (test code = 3888326379) 21 U/L 33-194 L Lab Interpretation (test code = Abnormal 55835-9) [facility] GLUCOSE (AUTOMATED)2022-08-06 11:29:35 Test Item Value Reference Range Interpretation Comments POCT GLU (test code = 4095683098) 275 mg/dL 70-110 H Lab Interpretation (test code = Abnormal 95211-0) [facility] GLUCOSE (AUTOMATED)2022-08-06 06:56:17 Test Item Value Reference Range Interpretation Comments POCT GLU (test code = 4227880217) 248 mg/dL 70-110 H Lab Interpretation (test code = Abnormal 00778-2) [facility] GLUCOSE (AUTOMATED)2022-08-06 02:34:33 Test Item Value Reference Range Interpretation Comments POCT GLU (test code = 8971277169) 255 mg/dL 70-110 H Lab Interpretation (test code = Abnormal 32689-9) [facility] GLUCOSE (AUTOMATED)2022-08-05 23:01:47 Test Item Value Reference Range Interpretation Comments POCT GLU (test code = 8799957332) 277 mg/dL 70-110 H Lab Interpretation (test code = Abnormal 69911-4) [facility] [id number] 22:36:41 Test Item Value Reference Interpretation Comments Range TROPONIN I (test 0.001 ng/mL See_Comment [Automated code = 4767444223) message] The system which generated this result [...] biotin. Lab Interpretation Normal (test code = 83936-4) [facility] GLUCOSE (AUTOMATED)2022-08-05 17:57:05 Test Item Value Reference Range Interpretation Comments POCT GLU (test code = 5273949117) 306 mg/dL 70-110 H Lab Interpretation (test code = Abnormal 15825-8) [facility] GLUCOSE (AUTOMATED)2022-08-05 13:44:12 Test Item Value Reference Range Interpretation Comments POCT GLU (test code = 0465946710) 376 mg/dL 70-110 H Lab Interpretation (test code = Abnormal 97073-3) [facility] [id number] 04:02:57 Test Item Value Reference Interpretation Comments Range TROPONIN I (test 0.001 ng/mL See_Comment [Automated code = 0860343418) message] The system which generated this result [...] biotin. Lab Interpretation Normal (test code = 84612-4) [id number] 03:59:58 Test Item Value Reference Range Interpretation Comments NT-proBNP (test code 100 pg/mL See_Comment [Autom ated = 7134117947) message] The system which generated this result transmitted reference range : <=125. The reference range was not used to interpret this result as normal/abnormal . JENNIFFER (test code = JENNIFFER) Biotin has been reported to cause a negative bias, interpret results relative to patient's use of biotin. Lab Interpretation Normal (test code = 92978-6) [facility] (40665[facility]2022-06-05 03:50:53 Test Item Value Reference Range Interpretation Comments NA (test code = 139 mmol/L 135-145 6584338537) K (test code = 5.0 mmol/L 3.5-5.0 9808382860) CL (test code = 96 mmol/L 98-108 L 5901734951) CO2 TOTAL (test code = 38 mmol/L 23-31 H 4886284295) AGAP (test code = 2-16 0257117546) BUN (test code = 19 mg/dL 7-23 6553296336) GLUCOSE (test code = 186 mg/dL 70-110 H 2045840734) CREATININE (test code = 0.83 mg/dL 0.50-1.04 2776176557) TOTAL BILI (test code = 0.8 mg/dL 0.1-1.7 3207663221) CALCIUM (test code = 8.9 mg/dL 8.6-10.6 6160140960) T PROTEIN (test code = 7.4 g/dL 6.3-8.2 1586753049) ALBUMIN (test code = 4.3 g/dL 3.5-5.0 9225055998) ALK PHOS (test code = 102 U/L 34-122 5471866028) ALTv (test code = 33 U/L 5-35 2-6) AST(SGOT) (test code = 40 U/L 13-40 0726481545) eGFR (test code = mL/min/1.73m2 7395262118) JENNIFFER (test code = JENNIFFER) Association of [...] tests). Lab Interpretation Abnormal (test code = 77291-1) [facility] WITH [id number] 03:35:15 Test Item Value Reference Range Interpretation [...] RDW-SD (test code = 49.0 fL 39.0-49.9 84858-7) RDW-CV (test code = 15.4 % 12.0-15.5 788-0) PLT (test code = See_Comment [Automated 777-3) message] The sy stem which generated this result transmitted reference range : 166 - 358 10*3/ ?L. The reference r josselyn was not used to interpret this result as normal/abnormal . MPV (test code = 9.0 fL 9.5-12.9 L 45153-6) NRBC/100 WBC (test See_Comment [Automat ed code = 7322411103) message] The system which generated this result transmitted reference range : 0.0 - 10.0 /100 WBCs. The refer ence range was not u sed to interpret th is result as normal/abnormal . NRBC x10^3 (test code See_Comment [Auto mated = 8149216503) message] The s ystem which generated this result transmitted reference range : 10*3/?L. The reference range was not used to interpret this result as normal/abnormal . GRAN MAT (NEUT) % 85.5 % (test code = 770-8) IMM GRAN % (test code 0.60 % = 8695696846) LYMPH % (test code = 7.7 % 736-9) MONO % (test code = 4.0 % 5905-5) EOS % (test code = 1.6 % 713-8) BASO % (test code = 0.6 % 706-2) GRAN MAT x10^3(ANC) 8.05 10*3/uL 1.88-7.09 H (test code = 6549958015) IMM GRAN x10^3 (test 0.06 10*3/uL 0.00-0.06 code = 8253895646) LYMPH x10^3 (test code 0.73 10*3/uL 1.32-3.29 L = 731-0) MONO x10^3 (test code 0.38 10*3/uL 0.33-0.92 = 742-7) EOS x10^3 (test code = 0.15 10*3/uL 0.03-0.39 711-2) BASO x10^3 (test code 0.06 10*3/uL 0.01-0.07 = 704-7) Lab Interpretation Abnormal (test code = 65206-3) [facility] [id number] 06:26:12 Test Item Value Reference Interpretation Comments Range TROPONIN I (test 0.002 ng/mL See_Comment [Automated code = 8011070613) message] The system which generated this result [...] biotin. Lab Interpretation Normal (test code = 46396-3) [facility] [id number] 06:23:11 Test Item Value Reference Range Interpretation Comments NT-proBNP (test code 81 pg/mL See_Comment [Autom ated = 0617442677) message] The system which generated this result transmitted reference range : <=125. The reference range was not used to interpret this result as normal/abnormal . JENNIFFER (test code = JENNIFFER) Biotin has been reported to cause a negative bias, interpret results relative to patient's use of biotin. Lab Interpretation Normal (test code = 43474-8) [facility] + LACTIC [id number] 06:21:05 Test Item Value Reference Range Interpretation Comments PH (test code = 7.32-7.42 L 1846719286) PCO2 CELIA (test code = See_Comment H [Auto mated 4831109784) message] The sy stem which generated this result transmitted reference range : 41 - 51 mmHg. The reference range was not used to interpret this result as normal/abnormal . PO2 CELIA (test code = See_Comment L [Autom ated 2453133854) message] The sy stem which generated this result transmitted reference range : 25 - 40 mmHg. The reference range was not used to interpret this result as normal/abnormal . HCO3 CELIA (test code = See_Comment H [Auto mated 5390963856) message] The sy stem which generated this result transmitted reference range : 24 - 28 mEq/L. The reference range was not used to interpret this result as normal/abnormal . AC VBE(BEAKER) (test mEq/L code = 9830059567) THB CELIA (test code = 12.3 g/dL 12-16 6305973265) %O2HB CELIA (test code = 38.2 % 52-63 L 8109048893) %COHB CELIA (test code = 0.7 % 0-1.5 2301086949) %METHB CELIA (test code = 0.3 % 0.4-1.5 L 0086757738) VOL%O2 CELIA (test code = 6.6 % 6-12 9779358131) NA (test code = 138 mmol/L 135-145 7537588122) K+ (test code = 4.2 mmol/L 3.5-5 1914285409) AC CA IONZ (test code = 4.70 mg/dL 4.5-5.3 5663722659) GLUCOSE (test code = 178 mg/dL 70-110 H 2125563096) LACTIC ACID (test code 1.11 mmol/L 0.5-2.2 = 8161577084) Lab Interpretation Abnormal (test code = 03039-5) [facility]. METABOLIC PANEL (20831)2022-05-02 06:14:48 Test Item Value Reference Range Interpretation Comments NA (test code = 140 mmol/L 135-145 3808073069) K (test code = 4.4 mmol/L 3.5-5 1249325890) CL (test code = 97 mmol/L 98-108 L 2673923305) CO2 TOTAL (test code = 35 mmol/L 23-31 H 8531761400) AGAP (test code = 2-16 2814954082) BUN (test code = 23 mg/dL 7-23 3268871197) GLUCOSE (test code = 185 mg/dL 70-110 H 9799271179) CREATININE (test code = 1.16 mg/dL 0.5-1.04 H 1583875133) TOTAL BILI (test code = 0.4 mg/dL 0.1-1.8 4755332168) CALCIUM (test code = 9.4 mg/dL 8.6-10.6 1181389899) T PROTEIN (test code = 7.3 g/dL 6.3-8.2 4880953606) ALBUMIN (test code = 4.4 g/dL 3.5-5 9657268680) ALK PHOS (test code = 112 U/L 34-122 9373632859) ALTv (test code = 47 U/L 5-35 H 1742-6) AST(SGOT) (test code = 47 U/L 13-40 H 5474497249) eGFR (test code = mL/min/1.73m2 2078008809) JENNIFFER (test code = JENNIFFER) Association of [...] tests). Lab Interpretation Abnormal (test code = 35620-3) [facility] 06:14:48 Test Item Value Reference Range Interpretation Comments MAGNESIUM (test code = 7478121950) 2.5 mg/dL 1.7-2.4 H Lab Interpretation (test code = Abnormal 84375-0) [facility] WITH [id number] 05:53:47 Test Item Value Reference Range Interpretation Comments WBC (test code = See_Comment [Automated 0320-2) message] The sy stem which generated this result transmitted reference range : 4.30 - 11.10 10*3/?L. The reference range was not used to interpret this result as normal/abnormal . RBC (test code = See_Comment [Automated 471-8) message] The sy stem which generated this [...] RDW-SD (test code = 47.2 fL 39-49.9 19677-0) RDW-CV (test code = 14.8 % 12-15.5 788-0) PLT (test code = See_Comment [Automated 777-3) message] The sy stem which generated this result transmitted reference range : 166 - 358 10*3/ ?L. The reference r josselyn was not used to interpret this result as normal/abnormal . MPV (test code = 9.1 fL 9.5-12.9 L 97334-2) NRBC/100 WBC (test See_Comment [Automat ed code = 8834358831) message] The system which generated this result transmitted reference range : 0.0 - 10.0 /100 WBCs. The refer ence range was not u sed to interpret th is result as normal/abnormal . NRBC x10^3 (test code See_Comment [Auto mated = 1915647323) message] The s ystem which generated this result transmitted reference range : 10*3/?L. The reference range was not used to interpret this result as normal/abnormal . GRAN MAT (NEUT) % 82.2 % (test code = 770-8) IMM GRAN % (test code 0.40 % = 2688365266) LYMPH % (test code = 10.2 % 736-9) MONO % (test code = 4.4 % 5905-5) EOS % (test code = 1.8 % 713-8) BASO % (test code = 1.0 % 706-2) GRAN MAT x10^3(ANC) 6.37 10*3/uL 1.88-7.09 (test code = 4047202119) IMM GRAN x10^3 (test 0.03 10*3/uL 0-0.06 code = 2227730858) LYMPH x10^3 (test code 0.79 10*3/uL 1.32-3.29 L = 731-0) MONO x10^3 (test code 0.34 10*3/uL 0.33-0.92 = 742-7) EOS x10^3 (test code = 0.14 10*3/uL 0.03-0.39 711-2) BASO x10^3 (test code 0.08 10*3/uL 0.01-0.07 H = 704-7) Lab Interpretation Abnormal (test code = 53943-2) [facility] [id number] 03:36:53 Test Item Value Reference Range Interpretation Comments NT-proBNP (test code 102 pg/mL See_Comment [Autom ated = 2943356495) message] The system which generated this result transmitted reference range : <=125. The reference range was not used to interpret this result as normal/abnormal . JENNIFFER (test code = JENNIFFER) Biotin has been reported to cause a negative bias, interpret results relative to patient's use of biotin. Lab Interpretation Normal (test code = 77824-9) [facility] [id number] 03:23:03 Test Item Value Reference Interpretation Comments Range TROPONIN I (test See_Comment [Automated code = 1666072071) message] The system which generated this result [...] biotin. Lab Interpretation Normal (test code = 10980-9) [facility] (83092)2022-04-29 03:11:22 Test Item Value Reference Range Interpretation Comments NA (test code = 139 mmol/L 135-145 7557965040) K (test code = 4.6 mmol/L 3.5-5 8955235652) CL (test code = 94 mmol/L 98-108 L 1482016751) CO2 TOTAL (test code = 36 mmol/L 23-31 H 0592938796) AGAP (test code = 2-16 6078464537) BUN (test code = 23 mg/dL 7-23 6444207488) GLUCOSE (test code = 271 mg/dL 70-110 H 9466710775) CREATININE (test code = 0.91 mg/dL 0.5-1.04 2832318119) TOTAL BILI (test code = 0.5 mg/dL 0.1-1.0 9513537297) CALCIUM (test code = 9.3 mg/dL 8.6-10.6 6915670443) T PROTEIN (test code = 7.3 g/dL 6.3-8.2 0043099642) ALBUMIN (test code = 4.5 g/dL 3.5-5 5366643199) ALK PHOS (test code = 137 U/L 34-122 H 6965933706) ALTv (test code = 39 U/L 5-35 H 2-6) AST(SGOT) (test code = 34 U/L 13-40 3679071259) eGFR (test code = mL/min/1.73m2 7471448831) JENNIFFER (test code = JENNIFFER) Association of [...] tests). Lab Interpretation Abnormal (test code = 41379-2) [facility] [id number] 03:09:40 Test Item Value Reference Range Interpretation Comments APTT Patient (test See_Comment [Automat ed code = 3173-2) message] The system which generated this result transmitted reference range : 23 - 38 Seconds . The reference range was not used to interpr et this result as normal/abnormal . JENNIFFER (test code = JENNIFFER) The [facility] patient population mean normal value for aPTT is 30 seconds. Lab Interpretation Normal (test code = 06065-2) [facility] / [id number] 03:07:39 Test Item Value Reference Range Interpretation [...] tions. Lab Interpretation (test Normal code = 99406-1) [facility] WITH [id number] 02:58:01 Test Item Value Reference Range Interpretation Comments WBC (test code = See_Comment H [Automated 6290-2) message] The system which generated this result transmit alden reference range : 4.30 - 11.10 10*3/?L. The reference range was not used to interpret this result as normal/abnormal . RBC (test code = See_Comment [Automated 849-8) message] The system which generated this result [...] RDW-SD (test code = 47.9 fL 39-49.9 13796-7) RDW-CV (test code = 14.8 % 12-15.5 788-0) PLT (test code = See_Comment [Automated 777-3) message] The system which generated this result transmit alden reference range : 166 - 358 10*3/ ?L. The reference range was not u sed to interpret th is result as normal/abnormal . MPV (test code = 9.0 fL 9.5-12.9 L 82164-8) NRBC/100 WBC (test See_Comment [Automat ed code = 9512338823) message] The system which generated this result transmit alden reference range : 0.0 - 10.0 /100 WBCs. The reference range was not used to interpret this result as normal/abnormal . NRBC x10^3 (test code See_Comment [Auto mated = 1478467381) message] The system which generated this result transmit alden reference range : 10*3/?L. The reference range was not used to interpret this result as normal/abnormal . GRAN MAT (NEUT) % 85.4 % (test code = 770-8) IMM GRAN % (test code 0.40 % = 4246093271) LYMPH % (test code = 7.5 % 736-9) MONO % (test code = 5.0 % 5905-5) EOS % (test code = 1.1 % 713-8) BASO % (test code = 0.6 % 706-2) GRAN MAT x10^3(ANC) 10.20 10*3/uL 1.88-7.09 H (test code = 4462056992) IMM GRAN x10^3 (test 0.05 10*3/uL 0-0.06 code = 4297540072) LYMPH x10^3 (test code 0.89 10*3/uL 1.32-3.29 L = 731-0) MONO x10^3 (test code 0.60 10*3/uL 0.33-0.92 = 742-7) EOS x10^3 (test code = 0.13 10*3/uL 0.03-0.39 711-2) BASO x10^3 (test code 0.07 10*3/uL 0.01-0.07 = 704-7) Lab Interpretation Abnormal (test code = 45941-1) [facility] GLUCOSE (AUTOMATED)2022-02-27 20:32:53 Test Item Value Reference Range Interpretation Comments POCT GLU (test code = 2417614762) 236 mg/dL 70-110 H Lab Interpretation (test code = Abnormal 69582-9) [facility] GLUCOSE (AUTOMATED)2022-02-27 16:22:28 Test Item Value Reference Range Interpretation Comments POCT GLU (test code = 5223410324) 242 mg/dL 70-110 H Lab Interpretation (test code = Abnormal 20433-8) [facility] GLUCOSE (AUTOMATED)2022-02-27 12:34:52 Test Item Value Reference Range Interpretation Comments POCT GLU (test code = 6637164163) 195 mg/dL 70-110 H Lab Interpretation (test code = Abnormal 67540-3) [facility] GLUCOSE (AUTOMATED)2022-02-26 21:43:40 Test Item Value Reference Range Interpretation Comments POCT GLU (test code = 0377225731) 315 mg/dL 70-110 H Lab Interpretation (test code = Abnormal 62123-3) [facility] GLUCOSE (AUTOMATED)2022-02-26 17:51:09 Test Item Value Reference Range Interpretation Comments POCT GLU (test code = 7343717185) 316 mg/dL 70-110 H Lab Interpretation (test code = Abnormal 79943-5) [facility] GLUCOSE (AUTOMATED)2022-02-26 14:27:56 Test Item Value Reference Range Interpretation Comments POCT GLU (test code = 8064605701) 226 mg/dL 70-110 H Lab Interpretation (test code = Abnormal 88557-4) [facility] [id number] 10:01:38 Test Item Value Reference Range Interpretation Comments Blood Culture-Aerobic No organisms No growth Previo us (test code = 01214-3) isolated prelim inary verified result was Culture [...] Culture-Anaerobic isolated preliminar y (test code = 21197-7) verifi ed result was Culture In Progress [...] CDT Lab Interpretation Normal (test code = 79836-0) [facility] GLUCOSE (AUTOMATED)2022-02-26 01:34:43 Test Item Value Reference Range Interpretation Comments POCT GLU (test code = 6559043373) 253 mg/dL 70-110 H Lab Interpretation (test code = Abnormal 55996-5) [facility] GLUCOSE (AUTOMATED)2022-02-25 20:41:07 Test Item Value Reference Range Interpretation Comments POCT GLU (test code = 5432280767) 260 mg/dL 70-110 H Lab Interpretation (test code = Abnormal 37308-4) [facility] GLUCOSE (AUTOMATED)2022-02-25 16:40:46 Test Item Value Reference Range Interpretation Comments POCT GLU (test code = 1653005358) 245 mg/dL 70-110 H Lab Interpretation (test code = Abnormal 55046-1) [facility] Arterial Blood Gas.2022-02-25 14:15:07 Test Item Value Reference Range Interpretation Comments PH (test code = 2) 7.35-7.45 H PCO2 (test code = See_Comment H [Automate d message] 4075185242) The system [employer] generated this result transmitted ref erence range: 35 - 45 mmHg. The reference r josselyn was not used to interpret this result as normal/abnor mal. PO2 (test code = See_Comment [Automated message] 0562948062) The system [employer] generated this result transmitted ref erence range: 80 - 100 mmHg. The reference r josselyn was not used to interpret this result as normal/abnor mal. HCO3 (test code = See_Comment H [Automate d message] 1877929062) The system [employer] generated this result transmitted ref erence range: 22 - 26 mEq/L. The reference r josselyn was not used to interpret this result as normal/abnor mal. BE (test code = See_Comment H [Automated message] 6302695794) The system [employer] generated this result transmitted ref erence range: -3.0 - 3 .0 mEq/L. The refe rence range was not u sed to interpret this result as normal/abnor mal. Lab Interpretation (test Abnormal code = 66045-8) [facility]2022-02-25 12:53:11 Test Item Value Reference Range Interpretation Comments POCT GLU (test code = 3751976309) 194 mg/dL 70-110 H Lab Interpretation (test code = Abnormal 34310-1) [facility] METABOLIC PANEL (NA, K, CL, CO2, GLUCOSE, BUN, CREATININE, CA)2022-02-25 12:18:22 Test Item Value Reference Range Interpretation Comments NA (test code = 135 mmol/L 135-145 7358180265) K (test code = 3.5 mmol/L 3.5-5 0097353127) CL (test code = 97 mmol/L 98-108 L 7796398005) CO2 TOTAL (test code = 37 mmol/L 23-31 H 2433826848) AGAP (test code = 2-16 L 8034958973) BUN (test code = 36 mg/dL 7-23 H 8852393230) GLUCOSE (test code = 172 mg/dL 70-110 H 2480724444) CREATININE (test code = 1.57 mg/dL 0.5-1.04 H 7968756038) CALCIUM (test code = 9.0 mg/dL 8.6-10.6 3679218858) eGFR (test code = mL/min/1.73m2 4787777881) JENNIFFER (test code = JENNIFFER) Association of [...] tests). Lab Interpretation Abnormal (test code = 12193-8) [facility] 12:18:22 Test Item Value Reference Range Interpretation Comments MAGNESIUM (test code = 8278946793) 1.7 mg/dL 1.7-2.4 Lab Interpretation (test code = Normal 68013-8) [facility] 12:18:22 Test Item Value Reference Range Interpretation Comments PHOSPHORUS (test code = 0099394122) 2.7 mg/dL 2.5-5 Lab Interpretation (test code = Normal 69267-9) [facility] GLUCOSE (AUTOMATED)2022-02-25 01:26:19 Test Item Value Reference Range Interpretation Comments POCT GLU (test code = 6147945476) 180 mg/dL 70-110 H Lab Interpretation (test code = Abnormal 45942-3) [facility] GLUCOSE (AUTOMATED)2022-02-24 20:51:23 Test Item Value Reference Range Interpretation Comments POCT GLU (test code = 6077560809) 206 mg/dL 70-110 H Lab Interpretation (test code = Abnormal 93370-0) [facility].2022-02-24 17:04:22 Test Item Value Reference Range Interpretation Comments PH (test code = 2) 7.35-7.45 H PCO2 (test code = See_Comment [Automate d message] 8660343141) The system [employer] generated this result transmitted ref erence range: 35 - 45 mmHg. The reference r josselyn was not used to interpret this result as normal/abnor mal. PO2 (test code = See_Comment H [Automated message] 5029694937) The system [employer] generated this result transmitted ref erence range: 80 - 100 mmHg. The reference r josselyn was not used to interpret this result as normal/abnor mal. HCO3 (test code = See_Comment H [Automate d message] 6854476872) The system [employer] generated this result transmitted ref erence range: 22 - 26 mEq/L. The reference r josselyn was not used to interpret this result as normal/abnor mal. BE (test code = See_Comment H [Automated message] 0557157289) The system [employer] generated this result transmitted ref erence range: -3.0 - 3 .0 mEq/L. The refe rence range was not u sed to interpret this result as normal/abnor mal. Lab Interpretation (test Abnormal code = 93291-0) [facility]22-02-24 17:00:46 Test Item Value Reference Range Interpretation Comments POCT GLU (test code = 1606523157) 230 mg/dL 70-110 H Lab Interpretation (test code = Abnormal 09860-4) [facility] [id number] 13:31:58 Test Item Value Reference Interpretation Comments Range TROPONIN I (test 0.002 ng/mL See_Comment [Automated code = 2396033940) message] The system which generated this result [...] biotin. Lab Interpretation Normal (test code = 35391-8) [facility]2022-02-24 13:24:56 Test Item Value Reference Range Interpretation Comments POCT GLU (test code = 5827114897) 252 mg/dL 70-110 H Lab Interpretation (test code = Abnormal 66752-1) [facility] (NA, K, CL, CO2, GLUCOSE, BUN, CREATININE, CA)2022-02-24 13:21:38 Test Item Value Reference Range Interpretation Comments NA (test code = 138 mmol/L 135-145 7411316904) K (test code = 4.3 mmol/L 3.5-5 2347042515) CL (test code = 94 mmol/L 98-108 L 6192282825) CO2 TOTAL (test code = 39 mmol/L 23-31 H 3159273613) AGAP (test code = 2-16 9969692772) BUN (test code = 31 mg/dL 7-23 H 2282911555) GLUCOSE (test code = 237 mg/dL 70-110 H 9127250550) CREATININE (test code = 1.46 mg/dL 0.5-1.04 H 1192468392) CALCIUM (test code = 9.2 mg/dL 8.6-10.6 1781517591) eGFR (test code = mL/min/1.73m2 5117206367) JENNIFFER (test code = JENNIFFER) Association of [...] tests). Lab Interpretation Abnormal (test code = 84333-4) [facility] Whole [id number] 03:18:42 Test Item Value Reference Range Interpretation Comments LACTIC ACID (test code = 0.92 mmol/L 0.5-2.2 5781655536) Lab Interpretation (test code = Normal 29635-7) [facility] GLUCOSE (AUTOMATED)2022-02-24 01:21:36 Test Item Value Reference Range Interpretation Comments POCT GLU (test code = 6415020537) 200 mg/dL 70-110 H Lab Interpretation (test code = Abnormal 14043-9) [facility] GLUCOSE (AUTOMATED)2022-02-23 22:45:38 Test Item Value Reference Range Interpretation Comments POCT GLU (test code = 5637597631) 246 mg/dL 70-110 H Lab Interpretation (test code = Abnormal 41356-7) [facility] GLUCOSE (AUTOMATED)2022-02-23 21:47:33 Test Item Value Reference Range Interpretation Comments POCT GLU (test code = 261 mg/dL 70-110 H Notifi ed Provider 2649756087) Lab Interpretation (test Abnormal code = 23518-1) [facility] 20 + Lactic [id number] 18:40:55 Test Item Value Reference Range Interpretation Comments PH (test code = 2) 7.35-7.45 PCO2 (test code = See_Comment H [Automate d [id number]) message] The sy stem which generated this result transmitted reference range : 35 - 45 mmHg. The reference range was not used to interpret this result as normal/abnormal . PO2 (test code = See_Comment H [Automated 1900263979) message] The sy stem which generated this result transmitted reference range : 80 - 100 mmHg. The reference range was not used to interpret this result as normal/abnormal . HCO3 (test code = See_Comment H [Automate d 2566834056) message] The sy stem which generated this result transmitted reference range : 22 - 26 mEq/L. The reference range was not used to interpret this result as normal/abnormal . BE (test code = See_Comment H [Automated 1108579688) message] The sy stem which generated this result transmitted reference range : -3.0 - 3.0 mEq/ L. The reference r josselyn was not used to interpret this result as normal/abnormal . THB (test code = 10.1 g/dL 12-16 L 4308763707) %O2HB (test code = 98.2 % 94-99 9224993904) %COHB ART (test code = 0.0 % 0-1.5 9938644025) %METHB ART (test code = 0.2 % 0.4-1.5 L 9847497135) VOL%O2 ART (test code = 14.2 % 15-23 L 8647327496) NA (test code = 142 mmol/L 135-145 1010573113) K+ (test code = 3.9 mmol/L 3.5-5 3725063249) AC CA IONZ (test code = 4.60 mg/dL 4.5-5.3 6184015261) GLUCOSE (test code = 201 mg/dL 70-110 H 1025415648) LACTIC ACID (test code 0.99 mmol/L 0.5-2.2 = 7428345240) Lab Interpretation Abnormal (test code = 34254-8) [facility]:20:26 Test Item Value Reference Range Interpretation Comments POCT GLU (test code = 222 mg/dL 70-110 H Notifi ed Provider [id number]) Lab Interpretation (test Abnormal code = 38023-7) [facility] GLUCOSE (AUTOMATED)2022-02-23 13:23:49 Test Item Value Reference Range Interpretation Comments POCT GLU (test code = 188 mg/dL 70-110 H Notifi ed Provider [id number]) Lab Interpretation (test Abnormal code = 50807-1) [facility] GLUCOSE (AUTOMATED)2022-02-22 21:57:50 Test Item Value Reference Range Interpretation Comments POCT GLU (test code = 4985541221) 240 mg/dL 70-110 H Lab Interpretation (test code = Abnormal 07180-1) [facility] GLUCOSE (AUTOMATED)2022-02-22 18:33:41 Test Item Value Reference Range Interpretation Comments POCT GLU (test code = 0675076731) 247 mg/dL 70-110 H Lab Interpretation (test code = Abnormal 04985-2) [id number] 15:54:13 Test Item Value Reference Range Interpretation Comments URINE CULTURE (test No aerobic growth (< code = 630-4) 1000 CFU/mL) [facility] (NA, K, CL, CO2, GLUCOSE, BUN, CREATININE, CA)2022-02-22 13:03:42 Test Item Value Reference Range Interpretation Comments NA (test code = 140 mmol/L 135-145 9266344550) K (test code = 3.7 mmol/L 3.5-5 7066152070) CL (test code = 95 mmol/L 98-108 L 3669279079) CO2 TOTAL (test code = 40 mmol/L 23-31 H 7263255145) AGAP (test code = 2-16 3050169347) BUN (test code = 19 mg/dL 7-23 0423888586) GLUCOSE (test code = 167 mg/dL 70-110 H 4518535282) CREATININE (test code = 0.85 mg/dL 0.5-1.04 2160548917) CALCIUM (test code = 9.0 mg/dL 8.6-10.6 2643317740) eGFR (test code = mL/min/1.73m2 5915359985) JENNIFFER (test code = JENNIFFER) Association of [...] tests). Lab Interpretation Abnormal (test code = 97476-9) [facility] 12:14:43 Test Item Value Reference Range Interpretation Comments MAGNESIUM (test code = 2671048461) 2.3 mg/dL 1.7-2.4 Lab Interpretation (test code = Normal 16601-5) [facility] WITH [id number] 11:52:02 Test Item Value Reference Range Interpretation Comments WBC (test code = See_Comment [Automated 0990-2) message] The sy stem which generated this result transmitted reference range : 4.30 - 11.10 10*3/?L. The reference range was not used to interpret this result as normal/abnormal . RBC (test code = See_Comment L [Automated 669-8) message] The sy stem which generated this [...] RDW-SD (test code = 48.7 fL 39-49.9 03331-7) RDW-CV (test code = 15.2 % 12-15.5 788-0) PLT (test code = See_Comment [Automated 777-3) message] The sy stem which generated this result transmitted reference range : 166 - 358 10*3/ ?L. The reference r josselyn was not used to interpret this result as normal/abnormal . MPV (test code = 8.9 fL 9.5-12.9 L 42534-5) NRBC/100 WBC (test See_Comment [Automat ed code = 2019889996) message] The system which generated this result transmitted reference range : 0.0 - 10.0 /100 WBCs. The refer ence range was not u sed to interpret th is result as normal/abnormal . NRBC x10^3 (test code See_Comment [Auto mated = 9550471530) message] The s ystem which generated this result transmitted reference range : 10*3/?L. The reference range was not used to interpret this result as normal/abnormal . GRAN MAT (NEUT) % 70.5 % (test code = 770-8) IMM GRAN % (test code 0.70 % = 6445772789) LYMPH % (test code = 18.8 % 736-9) MONO % (test code = 7.9 % 5905-5) EOS % (test code = 1.2 % 713-8) BASO % (test code = 0.9 % 706-2) GRAN MAT x10^3(ANC) 4.04 10*3/uL 1.88-7.09 (test code = 6325673209) IMM GRAN x10^3 (test 0.04 10*3/uL 0-0.06 code = 0474578791) LYMPH x10^3 (test code 1.08 10*3/uL 1.32-3.29 L = 731-0) MONO x10^3 (test code 0.45 10*3/uL 0.33-0.92 = 742-7) EOS x10^3 (test code = 0.07 10*3/uL 0.03-0.39 711-2) BASO x10^3 (test code 0.05 10*3/uL 0.01-0.07 = 704-7) Lab Interpretation Abnormal (test code = 96246-5) [facility] GLUCOSE (AUTOMATED)2022-02-22 01:40:53 Test Item Value Reference Range Interpretation Comments POCT GLU (test code = 2648159448) 246 mg/dL 70-110 H Lab Interpretation (test code = Abnormal 57123-2) [facility] GLUCOSE (AUTOMATED)2022-02-21 22:04:44 Test Item Value Reference Range Interpretation Comments POCT GLU (test code = 5914797093) 293 mg/dL 70-110 H Lab Interpretation (test code = Abnormal 72765-0) [facility] WITHOUT [id number] 16:03:44 Test Item Value Reference Range Interpretation Comments WBC (test code = 6690-2) See_Comment [A utomated message] The system [employer] generated this result transmit alden reference range : 4.30 - 11.10 10*3/?L. The reference range was not used to interpret this result as normal/abnormal . RBC (test code = 789-8) See_Comment L [Au tomated message] The system [employer] generated this result transmit alden reference range [...] 777-3) See_Comment [Au tomated message] The system [employer] generated this result transmit alden reference range : 166 - 358 10*3/?L. The reference range was not used to interpret this result as normal/abnormal . MPV (test code = 9.2 fL 9.5-12.9 L 86612-2) RDW-CV (test code = 15.7 % 12-15.5 H 788-0) RDW-SD (test code = 50.9 fL 39-49.9 H 76981-5) NRBC x10^3 (test code = See_Comment [Au tomated message] 0870185354) The system [employer] generated this result transmit alden reference range : 10*3/?L. The reference range was not used to interpret this result as normal/abnormal . NRBC/100 WBC (test code See_Comment [Au tomated message] = 2091430029) The system [employer] generated this result transmit alden reference range : 0.0 - 10.0 /100 WBC s. The reference r josselyn was not used to interpret this result as normal/abnormal . IPF % (test code = 2898395704) Lab Interpretation (test Abnormal code = 18820-6) [facility] 14:46:08 Test Item Value Reference Range Interpretation Comments POCT GLU (test code = 0043671750) 157 mg/dL 70-110 H Lab Interpretation (test code = Abnormal 71907-7) [facility] METABOLIC PANEL (NA, K, CL, CO2, GLUCOSE, BUN, CREATININE, CA)2022-02-21 09:05:34 Test Item Value Reference Range Interpretation Comments NA (test code = 143 mmol/L 135-145 6099831619) K (test code = 3.8 mmol/L 3.5-5 8220023863) CL (test code = 99 mmol/L 98-108 3390786976) CO2 TOTAL (test code = 37 mmol/L 23-31 H 4484906405) AGAP (test code = 2-16 6903249516) BUN (test code = 17 mg/dL 7-23 1800199450) GLUCOSE (test code = 140 mg/dL 70-110 H 2313721802) CREATININE (test code = 0.85 mg/dL 0.5-1.04 1448483553) CALCIUM (test code = 8.9 mg/dL 8.6-10.6 0657086814) eGFR (test code = mL/min/1.73m2 0691255338) JENNIFFER (test code = JENNIFFER) Association of [...] tests). Lab Interpretation Abnormal (test code = 45032-5) [facility] 08:53:13 Test Item Value Reference Range Interpretation Comments MAGNESIUM (test code = 0972562393) 2.3 mg/dL 1.7-2.4 Lab Interpretation (test code = Normal 22546-1) [facility] WITH [id number] 08:13:50 Test Item Value Reference Range Interpretation [...] (test code = 51.5 fL 39-49.9 H 92922-0) RDW-CV (test code = 15.5 % 12-15.5 788-0) PLT (test code = See_Comment L [Automated 777-3) message] The sy stem which generated this result transmitted reference range : 166 - 358 10*3/ ?L. The reference r josselyn was not used to interpret this result as normal/abnormal . MPV (test code = 9.0 fL 9.5-12.9 L 04824-7) NRBC/100 WBC (test See_Comment [Automat ed code = 5441603316) message] The system which generated this result transmitted reference range : 0.0 - 10.0 /100 WBCs. The refer ence range was not u sed to interpret th is result as normal/abnormal . NRBC x10^3 (test code See_Comment [Auto mated = 3595794602) message] The s ystem which generated this result transmitted reference range : 10*3/?L. The reference range was not used to interpret this result as normal/abnormal . GRAN MAT (NEUT) % 68.2 % (test code = 770-8) IMM GRAN % (test code 0.60 % = 4993231490) LYMPH % (test code = 20.0 % 736-9) MONO % (test code = 8.1 % 5905-5) EOS % (test code = 2.0 % 713-8) BASO % (test code = 1.1 % 706-2) GRAN MAT x10^3(ANC) 3.72 10*3/uL 1.88-7.09 (test code = 0295984155) IMM GRAN x10^3 (test 0.03 10*3/uL 0-0.06 code = 0693702692) LYMPH x10^3 (test code 1.09 10*3/uL 1.32-3.29 L = 731-0) MONO x10^3 (test code 0.44 10*3/uL 0.33-0.92 = 742-7) EOS x10^3 (test code = 0.11 10*3/uL 0.03-0.39 711-2) BASO x10^3 (test code 0.06 10*3/uL 0.01-0.07 = 704-7) Lab Interpretation Abnormal (test code = 17994-4) [facility] 02:41:53 Test Item Value Reference Range Interpretation Comments POCT GLU (test code = 0037602158) 175 mg/dL 70-110 H Lab Interpretation (test code = Abnormal 87385-3) [facility] Arterial Blood Gas.2022-02-20 23:27:23 Test Item Value Reference Range Interpretation Comments PH (test code = 2) 7.35-7.45 L PCO2 (test code = See_Comment H [Automate d message] 1376240620) The system [employer] generated this result transmitted ref erence range: 35 - 45 mmHg. The reference r josselyn was not used to interpret this result as normal/abnor mal. PO2 (test code = See_Comment H [Automated message] 2284064325) The system [employer] generated this result transmitted ref erence range: 80 - 100 mmHg. The reference r josselyn was not used to interpret this result as normal/abnor mal. HCO3 (test code = See_Comment H [Automate d message] 3108945210) The system [employer] generated this result transmitted ref erence range: 22 - 26 mEq/L. The reference r josselyn was not used to interpret this result as normal/abnor mal. BE (test code = See_Comment H [Automated message] 4459941470) The system [employer] generated this result transmitted ref erence range: -3.0 - 3 .0 mEq/L. The refe rence range was not u sed to interpret this result as normal/abnor mal. Lab Interpretation (test Abnormal code = 73951-5) [facility] WITH [id number] 20:32:34 Test Item Value Reference Range Interpretation Comments WBC (test code = See_Comment [Automated 1990-2) message] The sy stem which generated this [...] (test code = 51.8 fL 39-49.9 H 42478-4) RDW-CV (test code = 15.7 % 12-15.5 H 788-0) PLT (test code = See_Comment [Automated 777-3) message] The sy stem which generated this result transmitted reference range : 166 - 358 10*3/ ?L. The reference r josselyn was not used to interpret this result as normal/abnormal . MPV (test code = 8.9 fL 9.5-12.9 L 65095-4) NRBC/100 WBC (test See_Comment [Automat ed code = 1830160947) message] The system which generated this result transmitted reference range : 0.0 - 10.0 /100 WBCs. The refer ence range was not u sed to interpret th is result as normal/abnormal . NRBC x10^3 (test code See_Comment [Auto mated = 6665175044) message] The s ystem which generated this result transmitted reference range : 10*3/?L. The reference range was not used to interpret this result as normal/abnormal . GRAN MAT (NEUT) % 72.1 % (test code = 770-8) IMM GRAN % (test code 1.20 % = 2736046149) LYMPH % (test code = 16.2 % 736-9) MONO % (test code = 7.1 % 5905-5) EOS % (test code = 2.3 % 713-8) BASO % (test code = 1.1 % 706-2) GRAN MAT x10^3(ANC) 7.28 10*3/uL 1.88-7.09 H (test code = 9875060097) IMM GRAN x10^3 (test 0.12 10*3/uL 0-0.06 H code = 7282416048) LYMPH x10^3 (test code 1.63 10*3/uL 1.32-3.29 = 731-0) MONO x10^3 (test code 0.72 10*3/uL 0.33-0.92 = 742-7) EOS x10^3 (test code = 0.23 10*3/uL 0.03-0.39 711-2) BASO x10^3 (test code 0.11 10*3/uL 0.01-0.07 H = 704-7) Lab Interpretation Abnormal (test code = 39033-2) [facility] GLUCOSE (AUTOMATED)2022-02-17 21:46:17 Test Item Value Reference Range Interpretation Comments POCT GLU (test code = 1293123276) 181 mg/dL 70-110 H Lab Interpretation (test code = Abnormal 24217-1) [facility] GLUCOSE (AUTOMATED)2022-02-17 17:09:48 Test Item Value Reference Range Interpretation Comments POCT GLU (test code = 7806838397) 191 mg/dL 70-110 H Lab Interpretation (test code = Abnormal 16798-3) [facility] GLUCOSE (AUTOMATED)2022-02-17 13:07:24 Test Item Value Reference Range Interpretation Comments POCT GLU (test code = 4662497748) 185 mg/dL 70-110 H Lab Interpretation (test code = Abnormal 66391-4) [facility] Culture - Peripheral # [id number] 02:02:05 Test Item Value Reference Range Interpretation Comments Blood Culture-Aerobic No organisms No growth Previo us (test code = 73563-1) isolated prelim inary verified result was Culture [...] Culture-Anaerobic isolated preliminar y (test code = 72200-9) verifi ed result was Culture In Progress [...] CDT Lab Interpretation Normal (test code = 31714-1) [facility] GLUCOSE (AUTOMATED)2022-02-17 00:50:32 Test Item Value Reference Range Interpretation Comments POCT GLU (test code = 7628901977) 152 mg/dL 70-110 H Lab Interpretation (test code = Abnormal 34637-0) [facility] GLUCOSE (AUTOMATED)2022-02-16 21:47:16 Test Item Value Reference Range Interpretation Comments POCT GLU (test code = 1272901089) 183 mg/dL 70-110 H Lab Interpretation (test code = Abnormal 69213-4) [facility] GLUCOSE (AUTOMATED)2022-02-16 17:08:26 Test Item Value Reference Range Interpretation Comments POCT GLU (test code = 6208944002) 160 mg/dL 70-110 H Lab Interpretation (test code = Abnormal 70945-4) [facility] GLUCOSE (AUTOMATED)2022-02-16 13:06:01 Test Item Value Reference Range Interpretation Comments POCT GLU (test code = 1609583417) 140 mg/dL 70-110 H Lab Interpretation (test code = Abnormal 49971-8) [facility] GLUCOSE (AUTOMATED)2022-02-16 08:33:41 Test Item Value Reference Range Interpretation Comments POCT GLU (test code = 0233590796) 193 mg/dL 70-110 H Lab Interpretation (test code = Abnormal 99647-5) [facility] GLUCOSE (AUTOMATED)2022-02-16 04:30:38 Test Item Value Reference Range Interpretation Comments POCT GLU (test code = 8436976674) 167 mg/dL 70-110 H Lab Interpretation (test code = Abnormal 66027-5) [facility] GLUCOSE (AUTOMATED)2022-02-16 00:40:50 Test Item Value Reference Range Interpretation Comments POCT GLU (test code = 3181920373) 190 mg/dL 70-110 H Lab Interpretation (test code = Abnormal 64185-1) [facility] GLUCOSE (AUTOMATED)2022-02-15 21:26:07 Test Item Value Reference Range Interpretation Comments POCT GLU (test code = 4437102712) 189 mg/dL 70-110 H Lab Interpretation (test code = Abnormal 40515-9) [facility] GLUCOSE (AUTOMATED)2022-02-15 17:00:52 Test Item Value Reference Range Interpretation Comments POCT GLU (test code = 2258997399) 213 mg/dL 70-110 H Lab Interpretation (test code = Abnormal 75711-3) [facility] GLUCOSE (AUTOMATED)2022-02-15 12:48:04 Test Item Value Reference Range Interpretation Comments POCT GLU (test code = 7429347535) 145 mg/dL 70-110 H Lab Interpretation (test code = Abnormal 42226-3) [facility]. METABOLIC PANEL (60140)2022-02-15 08:28:08 Test Item Value Reference Range Interpretation Comments NA (test code = 140 mmol/L 135-145 2354174656) K (test code = 4.0 mmol/L 3.5-5 3538571015) CL (test code = 100 mmol/L 98-108 6289678861) CO2 TOTAL (test code = 35 mmol/L 23-31 H 8683735979) AGAP (test code = 2-16 3493935015) BUN (test code = 12 mg/dL 7-23 8283764234) GLUCOSE (test code = 161 mg/dL 70-110 H 2315515795) CREATININE (test code = 1.20 mg/dL 0.5-1.04 H 3877080862) TOTAL BILI (test code = 0.6 mg/dL 0.1-1.0 0842989675) CALCIUM (test code = 8.7 mg/dL 8.6-10.6 3123488225) T PROTEIN (test code = 6.8 g/dL 6.3-8.2 3697743248) ALBUMIN (test code = 3.7 g/dL 3.5-5 2825398676) ALK PHOS (test code = 121 U/L 34-122 6389500545) ALTv (test code = 35 U/L 5-35 1742-6) AST(SGOT) (test code = 34 U/L 13-40 4495072095) eGFR (test code = mL/min/1.73m2 6109396583) JENNIFFER (test code = JENNIFFER) Association of [...] tests). Lab Interpretation Abnormal (test code = 78881-6) [facility] Test Item Value Reference Range Interpretation Comments MAGNESIUM (test code = 4302392761) 2.4 mg/dL 1.7-2.4 Lab Interpretation (test code = Normal 99438-3) [facility] [id number] 08:07:28 Test Item Value Reference Range Interpretation Comments WBC (test code = 6690-2) See_Comment [A utomated message] The system [employer] generated this result transmit alden reference range : 4.30 - 11.10 10*3/?L. The reference range was not used to interpret this result as normal/abnormal . RBC (test code = 789-8) See_Comment L [Au tomated message] The system [employer] generated this result transmit alden reference range [...] 777-3) See_Comment [Au tomated message] The system [employer] generated this result transmit alden reference range : 166 - 358 10*3/?L. The reference range was not used to interpret this result as normal/abnormal . MPV (test code = 8.9 fL 9.5-12.9 L 29663-0) RDW-CV (test code = 16.2 % 12-15.5 H 788-0) RDW-SD (test code = 52.6 fL 39-49.9 H 67433-1) NRBC x10^3 (test code = See_Comment [Au tomated message] 6669820837) The system [employer] generated this result transmit alden reference range : 10*3/?L. The reference range was not used to interpret this result as normal/abnormal . NRBC/100 WBC (test code See_Comment [Au tomated message] = 4588327864) The system [employer] generated this result transmit alden reference range : 0.0 - 10.0 /100 WBC s. The reference r josselyn was not used to interpret this result as normal/abnormal . IPF % (test code = 2842521252) Lab Interpretation (test Abnormal code = 77340-1) [facility] GLUCOSE (AUTOMATED)2022-02-15 08:03:53 Test Item Value Reference Range Interpretation Comments POCT GLU (test code = 4384286713) 179 mg/dL 70-110 H Lab Interpretation (test code = Abnormal 74035-4) [facility] GLUCOSE (AUTOMATED)2022-02-15 04:16:20 Test Item Value Reference Range Interpretation Comments POCT GLU (test code = 2181452052) 215 mg/dL 70-110 H Lab Interpretation (test code = Abnormal 11942-7) [facility] GLUCOSE (AUTOMATED)2022-02-15 00:50:30 Test Item Value Reference Range Interpretation Comments POCT GLU (test code = 9170108769) 229 mg/dL 70-110 H Lab Interpretation (test code = Abnormal 96415-7) [facility] GLUCOSE (AUTOMATED)2022-02-14 21:23:56 Test Item Value Reference Range Interpretation Comments POCT GLU (test code = 4143365507) 214 mg/dL 70-110 H Lab Interpretation (test code = Abnormal 33316-1) [facility] GLUCOSE (AUTOMATED)2022-02-14 19:38:54 Test Item Value Reference Range Interpretation Comments POCT GLU (test code = 6875834982) 236 mg/dL 70-110 H Lab Interpretation (test code = Abnormal 18501-5) [facility] GLUCOSE (AUTOMATED)2022-02-14 16:28:53 Test Item Value Reference Range Interpretation Comments POCT GLU (test code = 2908690913) 245 mg/dL 70-110 H Lab Interpretation (test code = Abnormal 13038-1) [facility] GLUCOSE (AUTOMATED)2022-02-14 14:17:55 Test Item Value Reference Range Interpretation Comments POCT GLU (test code = 1897711043) 259 mg/dL 70-110 H Lab Interpretation (test code = Abnormal 22352-9) [facility] METABOLIC PANEL (24932)2022-02-14 10:33:43 Test Item Value Reference Range Interpretation Comments NA (test code = 139 mmol/L 135-145 0548752393) K (test code = 3.9 mmol/L 3.5-5 9621572843) CL (test code = 102 mmol/L 98-108 6729100760) CO2 TOTAL (test code = 33 mmol/L 23-31 H 0269641628) AGAP (test code = 2-16 0151457359) BUN (test code = 11 mg/dL 7-23 9014176320) GLUCOSE (test code = 162 mg/dL 70-110 H 5626414086) CREATININE (test code = 1.05 mg/dL 0.5-1.04 H 7140163867) TOTAL BILI (test code = 0.5 mg/dL 0.1-1.1 9150864270) CALCIUM (test code = 8.2 mg/dL 8.6-10.6 L 1536834580) T PROTEIN (test code = 6.1 g/dL 6.3-8.2 L 3041399075) ALBUMIN (test code = 3.2 g/dL 3.5-5 L 0405562487) ALK PHOS (test code = 113 U/L 34-122 4450813377) ALTv (test code = 37 U/L 5-35 H 1742-6) AST(SGOT) (test code = 29 U/L 13-40 4923129470) eGFR (test code = mL/min/1.73m2 0884461235) JENNIFFER (test code = JENNIFFER) Association of [...] tests). Lab Interpretation Abnormal (test code = 53947-8) [facility]:43 Test Item Value Reference Range Interpretation Comments MAGNESIUM (test code = 9918436807) 2.2 mg/dL 1.7-2.4 Lab Interpretation (test code = Normal 37100-9) [facility] [id number] 10:26:41 Test Item Value Reference Range Interpretation Comments WBC (test code = See_Comment [Automated 5990-2) message] The sy stem which generated this [...] (test code = 51.8 fL 39-49.9 H 80062-7) RDW-CV (test code = 16.1 % 12-15.5 H 788-0) PLT (test code = See_Comment [Automated 777-3) message] The sy stem which generated this result transmitted reference range : 166 - 358 10*3/ ?L. The reference r josselyn was not used to interpret this result as normal/abnormal . MPV (test code = 9.5 fL 9.5-12.9 22950-3) NRBC/100 WBC (test See_Comment [Automat ed code = 4992924210) message] The system which generated this result transmitted reference range : 0.0 - 10.0 /100 WBCs. The refer ence range was not u sed to interpret th is result as normal/abnormal . NRBC x10^3 (test code See_Comment [Auto mated = 7755342839) message] The s ystem which generated this result transmitted reference range : 10*3/?L. The reference range was not used to interpret this result as normal/abnormal . GRAN MAT (NEUT) % 69.7 % (test code = 770-8) IMM GRAN % (test code 0.80 % = 1331721215) LYMPH % (test code = 19.6 % 736-9) MONO % (test code = 6.9 % 5905-5) EOS % (test code = 2.2 % 713-8) BASO % (test code = 0.8 % 706-2) GRAN MAT x10^3(ANC) 3.44 10*3/uL 1.88-7.09 (test code = 3206195119) IMM GRAN x10^3 (test 0.04 10*3/uL 0-0.06 code = 1203123061) LYMPH x10^3 (test code 0.97 10*3/uL 1.32-3.29 L = 731-0) MONO x10^3 (test code 0.34 10*3/uL 0.33-0.92 = 742-7) EOS x10^3 (test code = 0.11 10*3/uL 0.03-0.39 711-2) BASO x10^3 (test code 0.04 10*3/uL 0.01-0.07 = 704-7) Lab Interpretation Abnormal (test code = 84813-5) [facility] GLUCOSE (AUTOMATED)2022-02-14 08:19:03 Test Item Value Reference Range Interpretation Comments POCT GLU (test code = 2467419446) 180 mg/dL 70-110 H Lab Interpretation (test code = Abnormal 64753-0) [facility] GLUCOSE (AUTOMATED)2022-02-14 04:28:25 Test Item Value Reference Range Interpretation Comments POCT GLU (test code = 3200624778) 199 mg/dL 70-110 H Lab Interpretation (test code = Abnormal 36299-5) [facility] GLUCOSE (AUTOMATED)2022-02-14 00:57:11 Test Item Value Reference Range Interpretation Comments POCT GLU (test code = 9797389217) 203 mg/dL 70-110 H Lab Interpretation (test code = Abnormal 63581-9) [facility] GLUCOSE (AUTOMATED)2022-02-13 22:30:21 Test Item Value Reference Range Interpretation Comments POCT GLU (test code = 4330372105) 202 mg/dL 70-110 H Lab Interpretation (test code = Abnormal 10117-0) [facility] GLUCOSE (AUTOMATED)2022-02-13 17:30:07 Test Item Value Reference Range Interpretation Comments POCT GLU (test code = 3568175992) 180 mg/dL 70-110 H Lab Interpretation (test code = Abnormal 41009-5) [facility] GLUCOSE (AUTOMATED)2022-02-13 15:53:46 Test Item Value Reference Range Interpretation Comments POCT GLU (test code = 0073696021) 170 mg/dL 70-110 H Lab Interpretation (test code = Abnormal 56640-0) [facility] Arterial Blood Gas.2022-02-13 14:26:25 Test Item Value Reference Range Interpretation Comments PH (test code = 2) 7.35-7.45 PCO2 (test code = See_Comment [Automate d message] 7000853806) The system [employer] generated this result transmitted ref erence range: 35 - 45 mmHg. The reference r josselyn was not used to interpret this result as normal/abnor mal. PO2 (test code = See_Comment L [Automated message] 2014525639) The system [employer] generated this result transmitted ref erence range: 80 - 100 mmHg. The reference r josselyn was not used to interpret this result as normal/abnor mal. HCO3 (test code = See_Comment H [Automate d message] 2691921133) The system [employer] generated this result transmitted ref erence range: 22 - 26 mEq/L. The reference r josselyn was not used to interpret this result as normal/abnor mal. BE (test code = See_Comment [Automated message] 1605278462) The system [employer] generated this result transmitted ref erence range: -3.0 - 3 .0 mEq/L. The refe rence range was not u sed to interpret this result as normal/abnor mal. Lab Interpretation (test Abnormal code = 20054-2) [facility] GLUCOSE (AUTOMATED)2022-02-13 14:09:26 Test Item Value Reference Range Interpretation Comments POCT GLU (test code = 6054318401) 145 mg/dL 70-110 H Lab Interpretation (test code = Abnormal 56217-9) [facility] GLUCOSE (AUTOMATED)2022-02-13 12:46:36 Test Item Value Reference Range Interpretation Comments POCT GLU (test code = 0274455207) 133 mg/dL 70-110 H Lab Interpretation (test code = Abnormal 43861-8) [facility] GLUCOSE (AUTOMATED)2022-02-13 11:45:25 Test Item Value Reference Range Interpretation Comments POCT GLU (test code = 0777816964) 127 mg/dL 70-110 H Lab Interpretation (test code = Abnormal 89755-3) [facility] METABOLIC PANEL (NA, K, CL, CO2, GLUCOSE, BUN, CREATININE, CA)2022-02-13 11:17:34 Test Item Value Reference Range Interpretation Comments NA (test code = 140 mmol/L 135-145 5002147161) K (test code = 3.8 mmol/L 3.5-5 0014384379) CL (test code = 103 mmol/L 98-108 9159468189) CO2 TOTAL (test code = 35 mmol/L 23-31 H 5050287840) AGAP (test code = 2-16 9259658960) BUN (test code = 14 mg/dL 7-23 7489774251) GLUCOSE (test code = 107 mg/dL 70-110 5337533486) CREATININE (test code = 0.94 mg/dL 0.5-1.04 6997784216) CALCIUM (test code = 8.2 mg/dL 8.6-10.6 L 9648333792) eGFR (test code = mL/min/1.73m2 4982844854) JENNIFFER (test code = JENNIFFER) Association of [...] tests). Lab Interpretation Abnormal (test code = 97044-4) [facility] Test Item Value Reference Range Interpretation Comments MAGNESIUM (test code = 5858485046) 2.1 mg/dL 1.7-2.4 Lab Interpretation (test code = Normal 98910-4) [facility] [id number] 10:41:15 Test Item Value Reference Range Interpretation [...] (test code = 50.6 fL 39-49.9 H 57829-5) RDW-CV (test code = 15.6 % 12-15.5 H 788-0) PLT (test code = See_Comment [Automated 777-3) message] The sy stem which generated this result transmitted reference range : 166 - 358 10*3/ ?L. The reference r josselyn was not used to interpret this result as normal/abnormal . MPV (test code = 9.5 fL 9.5-12.9 80852-1) NRBC/100 WBC (test See_Comment [Automat ed code = 0548808472) message] The system which generated this result transmitted reference range : 0.0 - 10.0 /100 WBCs. The refer ence range was not u sed to interpret th is result as normal/abnormal . NRBC x10^3 (test code See_Comment [Auto mated = 2967117175) message] The s ystem which generated this result transmitted reference range : 10*3/?L. The reference range was not used to interpret this result as normal/abnormal . GRAN MAT (NEUT) % 74.0 % (test code = 770-8) IMM GRAN % (test code 0.50 % = 1296390257) LYMPH % (test code = 15.7 % 736-9) MONO % (test code = 7.4 % 5905-5) EOS % (test code = 1.7 % 713-8) BASO % (test code = 0.7 % 706-2) GRAN MAT x10^3(ANC) 4.37 10*3/uL 1.88-7.09 (test code = 5057482519) IMM GRAN x10^3 (test 0.03 10*3/uL 0-0.06 code = 9469263351) LYMPH x10^3 (test code 0.93 10*3/uL 1.32-3.29 L = 731-0) MONO x10^3 (test code 0.44 10*3/uL 0.33-0.92 = 742-7) EOS x10^3 (test code = 0.10 10*3/uL 0.03-0.39 711-2) BASO x10^3 (test code 0.04 10*3/uL 0.01-0.07 = 704-7) Lab Interpretation Abnormal (test code = 46459-4) [facility] GLUCOSE (AUTOMATED)2022-02-13 09:46:08 Test Item Value Reference Range Interpretation Comments POCT GLU (test code = 1439827466) 118 mg/dL 70-110 H Lab Interpretation (test code = Abnormal 69826-7) [facility] GLUCOSE (AUTOMATED)2022-02-13 08:49:55 Test Item Value Reference Range Interpretation Comments POCT GLU (test code = 1741590621) 122 mg/dL 70-110 H Lab Interpretation (test code = Abnormal 96586-3) [facility] 08:00:27 Test Item Value Reference Range Interpretation Comments POCT GLU (test code = 6652424403) 140 mg/dL 70-110 H Lab Interpretation (test code = Abnormal 40069-5) [facility] GLUCOSE (AUTOMATED)2022-02-13 07:07:01 Test Item Value Reference Range Interpretation Comments POCT GLU (test code = 0707558691) 155 mg/dL 70-110 H Lab Interpretation (test code = Abnormal 09703-1) [facility] GLUCOSE (AUTOMATED)2022-02-13 05:57:42 Test Item Value Reference Range Interpretation Comments POCT GLU (test code = 9815717060) 186 mg/dL 70-110 H Lab Interpretation (test code = Abnormal 33557-3) [facility] GLUCOSE (AUTOMATED)2022-02-13 03:40:10 Test Item Value Reference Range Interpretation Comments POCT GLU (test code = 7245062423) 245 mg/dL 70-110 H Lab Interpretation (test code = Abnormal 26106-3) [facility] GLUCOSE (AUTOMATED)2022-02-13 03:35:28 Test Item Value Reference Range Interpretation Comments POCT GLU (test code = 8902088077) 239 mg/dL 70-110 H Lab Interpretation (test code = Abnormal 95324-8) [facility] GLUCOSE (AUTOMATED)2022-02-13 01:48:01 Test Item Value Reference Range Interpretation Comments POCT GLU (test code = 1339101092) 184 mg/dL 70-110 H Lab Interpretation (test code = Abnormal 30043-3) [facility] GLUCOSE (AUTOMATED)2022-02-13 00:35:17 Test Item Value Reference Range Interpretation Comments POCT GLU (test code = 2126941497) 166 mg/dL 70-110 H Lab Interpretation (test code = Abnormal 35861-3) [facility] GLUCOSE (AUTOMATED)2022-02-12 23:26:35 Test Item Value Reference Range Interpretation Comments POCT GLU (test code = 3554431696) 149 mg/dL 70-110 H Lab Interpretation (test code = Abnormal 51432-5) [facility] GLUCOSE (AUTOMATED)2022-02-12 22:21:08 Test Item Value Reference Range Interpretation Comments POCT GLU (test code = 7343249650) 133 mg/dL 70-110 H Lab Interpretation (test code = Abnormal 08399-1) [facility] GLUCOSE (AUTOMATED)2022-02-12 21:06:47 Test Item Value Reference Range Interpretation Comments POCT GLU (test code = 9634195620) 130 mg/dL 70-110 H Lab Interpretation (test code = Abnormal 76480-3) [facility] GLUCOSE (AUTOMATED)2022-02-12 20:04:32 Test Item Value Reference Range Interpretation Comments POCT GLU (test code = 1447075676) 122 mg/dL 70-110 H Lab Interpretation (test code = Abnormal 18254-5) [facility] GLUCOSE (AUTOMATED)2022-02-12 19:08:55 Test Item Value Reference Range Interpretation Comments POCT GLU (test code = 3840704641) 133 mg/dL 70-110 H Lab Interpretation (test code = Abnormal 23929-0) [facility] GLUCOSE (AUTOMATED)2022-02-12 18:20:07 Test Item Value Reference Range Interpretation Comments POCT GLU (test code = 7749681757) 136 mg/dL 70-110 H Lab Interpretation (test code = Abnormal 35970-3) [facility] GLUCOSE (AUTOMATED)2022-02-12 17:19:20 Test Item Value Reference Range Interpretation Comments POCT GLU (test code = 1956464612) 155 mg/dL 70-110 H Lab Interpretation (test code = Abnormal 24600-8) [facility] GLUCOSE (AUTOMATED)2022-02-12 16:21:39 Test Item Value Reference Range Interpretation Comments POCT GLU (test code = 6960409508) 143 mg/dL 70-110 H Lab Interpretation (test code = Abnormal 53793-5) [facility]xy-[id number] 16:14:56 Test Item Value Reference Range Interpretation Comments BOH (test code = 0.2 mmol/L 7356427684) JENNIFFER (test code = Normal Ranges: ? ? JENNIFFER) Nonfasting ? Less than 0.1 mmol/L ? ? Overnight Fast ? ? ? Less than 0.4 mmol/L ? ? Fasting (1-2 weeks) ?6-8 mmol/L Test developed and characteristics determined by [facility] Laboratory Services. [facility] GLUCOSE (AUTOMATED)2022-02-12 15:53:18 Test Item Value Reference Range Interpretation Comments POCT GLU (test code = 2392586832) 70-110 HH Lab Interpretation (test code = Abnormal 98895-4) [facility] GLUCOSE (AUTOMATED)2022-02-12 14:17:34 Test Item Value Reference Range Interpretation Comments POCT GLU (test code = 9489627403) 232 mg/dL 70-110 H Lab Interpretation (test code = Abnormal 08048-1) [facility] GLUCOSE (AUTOMATED)2022-02-12 13:17:46 Test Item Value Reference Range Interpretation Comments POCT GLU (test code = 8795813767) 295 mg/dL 70-110 H Lab Interpretation (test code = Abnormal 16248-9) [facility] METABOLIC PANEL (NA, K, CL, CO2, GLUCOSE, BUN, CREATININE, CA)2022-02-12 12:56:38 Test Item Value Reference Range Interpretation Comments NA (test code = 138 mmol/L 135-145 0859442490) K (test code = 4.0 mmol/L 3.5-5 9666543465) CL (test code = 98 mmol/L 98-108 8261385722) CO2 TOTAL (test code = 31 mmol/L 23-31 9716324706) AGAP (test code = 2-16 9600650503) BUN (test code = 20 mg/dL 7-23 9726308518) GLUCOSE (test code = 279 mg/dL 70-110 H 0289734829) CREATININE (test code = 1.08 mg/dL 0.5-1.04 H 9715773248) CALCIUM (test code = 8.8 mg/dL 8.6-10.6 8321940535) eGFR (test code = mL/min/1.73m2 3600540099) JENNIFFER (test code = JENNIFFER) Association of [...] tests). Lab Interpretation Abnormal (test code = 62202-2) [facility] GLUCOSE (AUTOMATED)2022-02-12 12:44:19 Test Item Value Reference Range Interpretation Comments POCT GLU (test code = 1659637902) 299 mg/dL 70-110 H Lab Interpretation (test code = Abnormal 28119-9) [facility] GLUCOSE (AUTOMATED)2022-02-12 12:19:29 Test Item Value Reference Range Interpretation Comments POCT GLU (test code = 8555123964) 283 mg/dL 70-110 H Lab Interpretation (test code = Abnormal 75267-7) [facility] GLUCOSE (AUTOMATED)2022-02-12 11:22:10 Test Item Value Reference Range Interpretation Comments POCT GLU (test code = 2103242905) 378 mg/dL 70-110 H Lab Interpretation (test code = Abnormal 88472-4) [facility] GLUCOSE (AUTOMATED)2022-02-12 10:18:29 Test Item Value Reference Range Interpretation Comments POCT GLU (test code = 5608938427) 376 mg/dL 70-110 H Lab Interpretation (test code = Abnormal 68367-8) [facility] HospitalOsmolality [id number] 09:27:10 Test Item Value Reference Range Interpretation Comments OSMOLALITY (test code = See_Comment [Au tomated message] 2692-2) The system [employer] generated this result transmitted ref erence range: 278 - 30 5 mOsm/kg. The reference range was not used to int erpret this result as normal/abnormal . Lab Interpretation (test Abnormal code = 64758-1) [facility] (NA, K, CL, CO2, GLUCOSE, BUN, CREATININE, CA)2022-02-12 09:22:44 Test Item Value Reference Range Interpretation Comments NA (test code = 135 mmol/L 135-145 9974976300) K (test code = 4.7 mmol/L 3.5-5 2754765846) CL (test code = 93 mmol/L 98-108 L 5548665360) CO2 TOTAL (test code = 33 mmol/L 23-31 H 8643781533) AGAP (test code = 2-16 5383921883) BUN (test code = 22 mg/dL 7-23 2422456319) GLUCOSE (test code = 474 mg/dL 70-110 3525025492) CREATININE (test code = 1.17 mg/dL 0.5-1.04 H 9212565683) CALCIUM (test code = 8.9 mg/dL 8.6-10.6 1355851460) eGFR (test code = mL/min/1.73m2 2232982590) JENNIFFER (test code = JENNIFFER) Association of [...] tests). Lab Interpretation Abnormal (test code = 97660-0) [facility]-12 09:19:06 Test Item Value Reference Range Interpretation Comments POCT GLU (test code = 4959560063) 478 mg/dL 70-110 HH Lab Interpretation (test code = Abnormal 89478-2) [facility]2022-[facility] 09:16:19 Test Item Value Reference Range Interpretation Comments PHOSPHORUS (test code = 6643971010) 5.9 mg/dL 2.5-5 H Lab Interpretation (test code = Abnormal 16287-8) [facility] 09:16:19 Test Item Value Reference Range Interpretation Comments MAGNESIUM (test code = 8283152689) 2.1 mg/dL 1.7-2.4 Lab Interpretation (test code = Normal 27520-0) [facility] HospitalGlycosylated Hemoglobin (A1C)2022-02-12 09:10:46 Test Item Value Reference Range Interpretation Comments HGB A1C (test code = 9.7 % 4-5.7 H 4548-4) JENNIFFER (test code = JENNIFFER) Reference RangesNormal: <5.7%Prediabetes: 5.7 - 6.4%Diabetes: > 6.5% Lab Interpretation (test Abnormal code = 08543-9) [facility] WITH [id number] 08:28:29 Test Item Value Reference Range Interpretation [...] RDW-SD (test code = 49.8 fL 39-49.9 91982-5) RDW-CV (test code = 15.7 % 12-15.5 H 788-0) PLT (test code = See_Comment [Automated 777-3) message] The system which generated this result transmit alden reference range : 166 - 358 10*3/ ?L. The reference range was not u sed to interpret th is result as normal/abnormal . MPV (test code = 9.7 fL 9.5-12.9 52983-2) NRBC/100 WBC (test See_Comment [Automat ed code = 5383769201) message] The system which generated this result transmit alden reference range : 0.0 - 10.0 /100 WBCs. The reference range was not used to interpret this result as normal/abnormal . NRBC x10^3 (test code See_Comment [Auto mated = 9048343500) message] The system which generated this result transmit alden reference range : 10*3/?L. The reference range was not used to interpret this result as normal/abnormal . GRAN MAT (NEUT) % 89.9 % (test code = 770-8) IMM GRAN % (test code 0.90 % = 3829716021) LYMPH % (test code = 3.4 % 736-9) MONO % (test code = 5.3 % 5905-5) EOS % (test code = 0.1 % 713-8) BASO % (test code = 0.4 % 706-2) GRAN MAT x10^3(ANC) 11.94 10*3/uL 1.88-7.09 H (test code = 1914083676) IMM GRAN x10^3 (test 0.12 10*3/uL 0-0.06 H code = 0436234488) LYMPH x10^3 (test code 0.45 10*3/uL 1.32-3.29 L = 731-0) MONO x10^3 (test code 0.70 10*3/uL 0.33-0.92 = 742-7) EOS x10^3 (test code = 0.03-0.39 L 711-2) BASO x10^3 (test code 0.05 10*3/uL 0.01-0.07 = 704-7) Lab Interpretation Abnormal (test code = 23879-7) [facility] GLUCOSE (AUTOMATED)2022-02-12 04:57:17 Test Item Value Reference Range Interpretation Comments POCT GLU (test code = 0814190011) 592 mg/dL 70-110 HH Lab Interpretation (test code = Abnormal 78950-5) [facility] GLUCOSE (AUTOMATED)2022-02-12 04:57:17 Test Item Value Reference Range Interpretation Comments POCT GLU (test code = 4505234260) 559 mg/dL 70-110 HH Lab Interpretation (test code = Abnormal 04797-2) [facility] HospitalTHYROID STIMULATING [id number] 02:15:56 Test Item Value Reference Range Interpretation Comments TSH (test code = See_Comment [Automated message] 3573870122) The system [employer] generated this result transmitted ref erence range: 0.45 - 4 .70 mIU/L. The refe rence range was not u sed to interpret this result as normal/abnor mal. Lab Interpretation (test Normal code = 77585-9) [facility]FR [id number] 02:02:37 Test Item Value Reference Range Interpretation Comments FREE T4 (test code = See_Comment [Autom ated message] 9443917157) The system [employer] generated this result transmitted ref erence range: 0.78 - 2 .20 ng/dL:. The ref erence range was not u sed to interpret this result as normal/abnor mal. Lab Interpretation (test Normal code = 11864-3) [facility]REGANN [id number] 01:57:33 Test Item Value Reference Interpretation Comments Range TROPONIN I (test 0.001 ng/mL See_Comment [Automated code = 5553126774) message] The system which generated this result [...] biotin. Lab Interpretation Normal (test code = 09678-7) [facility]. METABOLIC PANEL (82355)2022-02-12 01:55:07 Test Item Value Reference Range Interpretation Comments NA (test code = 134 mmol/L 135-145 L 9213995122) K (test code = 4.4 mmol/L 3.5-5 8633530337) CL (test code = 95 mmol/L 98-108 L 5145864961) CO2 TOTAL (test code = 22 mmol/L 23-31 L 5033326227) AGAP (test code = 2-16 H 3678747541) BUN (test code = 22 mg/dL 7-23 8491863455) GLUCOSE (test code = 646 mg/dL 70-110 HH 2299471898) CREATININE (test code = 1.19 mg/dL 0.5-1.04 H 9494836653) TOTAL BILI (test code = 1.1 mg/dL 0.1-1.9 6265775171) CALCIUM (test code = 9.1 mg/dL 8.6-10.6 0205708993) T PROTEIN (test code = 7.0 g/dL 6.3-8.2 3034459219) ALBUMIN (test code = 4.1 g/dL 3.5-5 8626172186) ALK PHOS (test code = 245 U/L 34-122 H 9883400905) ALTv (test code = 78 U/L 5-35 H 1742-6) AST(SGOT) (test code = 76 U/L 13-40 H 5398300847) eGFR (test code = mL/min/1.73m2 5700208914) JENNIFFER (test code = JENNIFFER) Association of [...] tests). Lab Interpretation Abnormal (test code = 43984-0) [facility]AL [id number] 01:54:57 Test Item Value Reference Range Interpretation Comments NT-proBNP (test code 491 pg/mL See_Comment H [Autom ated = 9079319950) message] The system which generated this result transmitted reference range : <=125. The reference range was not used to interpret this result as normal/abnormal . JENNIFFER (test code = JENNIFFER) Biotin has been reported to cause a negative bias, interpret results relative to patient's use of biotin. Lab Interpretation Abnormal (test code = 77460-6) [facility]ETHANOL2022-07-[facility] 01:47:18 ALCOHOL<10mg/dL02/11/2022 8:47 PM [facility]<10 Ebkpyerq10-634 Toxic>100 Depression of FACULTY HEAD>400 Fatalities ReportedUnCovenant Medical CenterAMMONIA, [id number] 01:46:13 Test Item Value Reference Range Interpretation Comments AMMONIA (test code = 0441102307) 28 umol/L 9-33 Lab Interpretation (test code = Normal 36087-9) [facility] HospitalACTIVATED PARTIAL THRMPLAS [id number] 01:39:11 Test Item Value Reference Range Interpretation Comments APTT Patient (test See_Comment [Automat ed code = 3173-2) message] The system which generated this result transmitted reference range : 23 - 38 Seconds . The reference range was not used to interpr et this result as normal/abnormal . JENNIFFER (test code = JENNIFFER) The [facility] patient population mean normal value for aPTT is 30 seconds. Lab Interpretation Normal (test code = 94171-9) [facility]CBC WITH [id number] 01:37:15 Test Item Value Reference Range Interpretation Comments WBC (test code = See_Comment H [Automated 6490-2) message] The sy stem which generated this result transmitted reference range : 4.30 - 11.10 10*3/?L. The reference range was not used to interpret this result as normal/abnormal . RBC (test code = See_Comment L [Automated 079-8) message] The sy stem which generated this [...] (test code = 50.9 fL 39-49.9 H 54415-9) RDW-CV (test code = 15.8 % 12-15.5 H 788-0) PLT (test code = See_Comment [Automated 777-3) message] The sy stem which generated this result transmitted reference range : 166 - 358 10*3/ ?L. The reference r josselyn was not used to interpret this result as normal/abnormal . MPV (test code = 9.9 fL 9.5-12.9 50647-6) NRBC/100 WBC (test See_Comment [Automat ed code = 3832591166) message] The system which generated this result transmitted reference range : 0.0 - 10.0 /100 WBCs. The refer ence range was not u sed to interpret th is result as normal/abnormal . NRBC x10^3 (test code See_Comment [Auto mated = 6826130208) message] The s ystem which generated this result transmitted reference range : 10*3/?L. The reference range was not used to interpret this result as normal/abnormal . GRAN MAT (NEUT) % 78.5 % (test code = 770-8) IMM GRAN % (test code 1.20 % = 4994022159) LYMPH % (test code = 12.2 % 736-9) MONO % (test code = 6.4 % 5905-5) EOS % (test code = 1.0 % 713-8) BASO % (test code = 0.7 % 706-2) GRAN MAT x10^3(ANC) 8.80 10*3/uL 1.88-7.09 H (test code = 5344788564) IMM GRAN x10^3 (test 0.14 10*3/uL 0-0.06 H code = 7568540516) LYMPH x10^3 (test code 1.37 10*3/uL 1.32-3.29 = 731-0) MONO x10^3 (test code 0.72 10*3/uL 0.33-0.92 = 742-7) EOS x10^3 (test code = 0.11 10*3/uL 0.03-0.39 711-2) BASO x10^3 (test code 0.08 10*3/uL 0.01-0.07 H = 704-7) Lab Interpretation Abnormal (test code = 42177-9) [facility] HospitalPROTHROMBIN [facility] / [id number] 01:36:50 Test Item Value Reference Range Interpretation Comments PROTIME PATIENT (test See_Comment [Auto mated message] code = 5964-2) The system [employer] ich generated this result transmitted ref erence range: 12.0 - 1 4.7 Seconds. The re ference range was not u sed to interpret this result as normal/abnor mal. INR (test code = 6301-6) Nor mal INR <1.1; Warfarin Therap eutic range 2.0 to 3. 0 or 2.5 to 3.5, dep ending upon the indica tions. Lab Interpretation (test Normal code = 21120-7) [facility]2022-[facility]-31 18:41:03 Test Item Value Reference Range Interpretation Comments POCT GLU (test code = 3571036199) 241 mg/dL 70-110 H Lab Interpretation (test code = Abnormal 02934-7) [facility] HospitalSPUTUM [id number] 14:36:01 Test Item Value Reference Range Interpretation Comments SPUTUM CULTURE 1+ Respiratory iveth: (test code = 622-1) Commensal upper respiratory microorganisms only. Gram stain (test Few Epithelial cells code = 664-3) JENNIFFER (test code = Bacterial pathogens JENNIFFER) associated with lower respiratory infections were not identified, which include Pseudomonas aeruginosa and Staphylococcus aureus (MRSA or MSSA). [facility]MINAL [id number] 14:27:39 Test Item Value Reference Range Interpretation Comments NT-proBNP (test code 2930 pg/mL See_Comment H [Autom ated = 0940102736) message] The system which generated this result transmitted reference range : <=125. The reference range was not used to interpret this result as normal/abnormal . JENNIFFER (test code = JENNIFFER) Biotin has been reported to cause a negative bias, interpret results relative to patient's use of biotin. Lab Interpretation Abnormal (test code = 90982-1) [facility]2022-01-31 13:06:37 Test Item Value Reference Range Interpretation Comments POCT GLU (test code = 1956968638) 144 mg/dL 70-110 H Lab Interpretation (test code = Abnormal 21932-4) [facility] [facility] METABOLIC PANEL (NA, K, CL, CO2, GLUCOSE, BUN, CREATININE, CA)2022-01-31 11:52:51 Test Item Value Reference Range Interpretation Comments NA (test code = 139 mmol/L 135-145 3141201907) K (test code = 4.2 mmol/L 3.5-5.0 9570812144) CL (test code = 92 mmol/L 98-108 L 0294749972) CO2 TOTAL (test code = 39 mmol/L 23-31 H 6577600839) AGAP (test code = 2-16 4794284994) BUN (test code = 32 mg/dL 7-23 H 2991230563) GLUCOSE (test code = 183 mg/dL 70-110 H 1018524600) CREATININE (test code = 0.89 mg/dL 0.50-1.04 3442596668) CALCIUM (test code = 8.7 mg/dL 8.6-10.6 8100064815) eGFR (test code = mL/min/1.73m2 5202814830) JENNIFFER (test code = JENNIFFER) Association of [...] tests). Lab Interpretation Abnormal (test code = 27925-1) [facility] 11[facility]:09 Test Item Value Reference Range Interpretation Comments MAGNESIUM (test code = 7555874809) 2.4 mg/dL 1.7-2.4 Lab Interpretation (test code = Normal 51745-9) [facility] 11:44:49 Test Item Value Reference Range Interpretation Comments PHOSPHORUS (test code = 2285353429) 3.3 mg/dL 2.5-5.0 Lab Interpretation (test code = Normal 82199-1) [facility] GLUCOSE (AUTOMATED)2022-01-30 21:23:07 Test Item Value Reference Range Interpretation Comments POCT GLU (test code = 3233129812) 357 mg/dL 70-110 H Lab Interpretation (test code = Abnormal 24751-4) [facility] GLUCOSE (AUTOMATED)2022-01-30 17:39:07 Test Item Value Reference Range Interpretation Comments POCT GLU (test code = 2722577531) 183 mg/dL 70-110 H Lab Interpretation (test code = Abnormal 03275-3) [facility] GLUCOSE (AUTOMATED)2022-01-30 17:39:07 Test Item Value Reference Range Interpretation Comments POCT GLU (test code = 3249382456) 275 mg/dL 70-110 H Lab Interpretation (test code = Abnormal 07146-0) [facility] GLUCOSE (AUTOMATED)2022-01-30 13:42:50 Test Item Value Reference Range Interpretation Comments POCT GLU (test code = 1374945416) 187 mg/dL 70-110 H Lab Interpretation (test code = Abnormal 12378-5) [facility] [id number] 10:44:07 Test Item Value Reference Range Interpretation Comments NT-proBNP (test code 3180 pg/mL See_Comment H [Autom ated = 7450157549) message] The system which generated this result transmitted reference range : <=125. The reference range was not used to interpret this result as normal/abnormal . JENNIFFER (test code = JENNIFFER) Biotin has been reported to cause a negative bias, interpret results relative to patient's use of biotin. Lab Interpretation Abnormal (test code = 35947-5) [facility] ([id number])2022-01-30 10:36:27 Test Item Value Reference Range Interpretation Comments NA (test code = 139 mmol/L 135-145 1962270770) K (test code = 3.7 mmol/L 3.5-5.0 4243418940) CL (test code = 92 mmol/L 98-108 L 9341357447) CO2 TOTAL (test code = 37 mmol/L 23-31 H 3866436874) AGAP (test code = 2-16 8299220013) BUN (test code = 22 mg/dL 7-23 9058401670) GLUCOSE (test code = 192 mg/dL 70-110 H 9936932995) CREATININE (test code = 1.04 mg/dL 0.50-1.04 8431509440) TOTAL BILI (test code = 0.7 mg/dL 0.1-1.8 0537342460) CALCIUM (test code = 8.3 mg/dL 8.6-10.6 L 0819948664) T PROTEIN (test code = 6.8 g/dL 6.3-8.2 6424662108) ALBUMIN (test code = 3.7 g/dL 3.5-5.0 6512603415) ALK PHOS (test code = 124 U/L 34-122 H 5561494445) ALTv (test code = 28 U/L 5-35 1742-6) AST(SGOT) (test code = 24 U/L 13-40 6645840010) eGFR (test code = mL/min/1.73m2 4398537064) JENNIFFER (test code = JENNIFFER) Association of [...] tests). Lab Interpretation Abnormal (test code = 24348-5) [facility] WITH [id number] 09:41:38 Test Item Value Reference Range Interpretation Comments WBC (test code = See_Comment [Automated 1510-2) message] The sy stem which generated this result transmitted reference range : 4.30 - 11.10 10*3/?L. The reference range was not used to interpret this result as normal/abnormal . RBC (test code = See_Comment L [Automated 205-2) message] The sy stem which generated this [...] RDW-SD (test code = 47.8 fL 39.0-49.9 66489-2) RDW-CV (test code = 15.0 % 12.0-15.5 788-0) PLT (test code = See_Comment [Automated 777-3) message] The sy stem which generated this result transmitted reference range : 166 - 358 10*3/ ?L. The reference r josselyn was not used to interpret this result as normal/abnormal . MPV (test code = 9.1 fL 9.5-12.9 L 73967-3) NRBC/100 WBC (test See_Comment [Automat ed code = 3325220463) message] The system which generated this result transmitted reference range : 0.0 - 10.0 /100 WBCs. The refer ence range was not u sed to interpret th is result as normal/abnormal . NRBC x10^3 (test code <0.01 See_Comment [Auto mated = 4633658861) message] The s ystem which generated this result transmitted reference range : 10*3/?L. The reference range was not used to interpret this result as normal/abnormal . GRAN MAT (NEUT) % 85.7 % (test code = 770-8) IMM GRAN % (test code 0.60 % = 0821450123) LYMPH % (test code = 7.1 % 736-9) MONO % (test code = 6.1 % 5905-5) EOS % (test code = 0.1 % 713-8) BASO % (test code = 0.4 % 706-2) GRAN MAT x10^3(ANC) 7.16 10*3/uL 1.88-7.09 H (test code = 5603465558) IMM GRAN x10^3 (test 0.05 10*3/uL 0.00-0.06 code = 7470594676) LYMPH x10^3 (test code 0.59 10*3/uL 1.32-3.29 L = 731-0) MONO x10^3 (test code 0.51 10*3/uL 0.33-0.92 = 742-7) EOS x10^3 (test code = <0.03 0.03-0.39 L 711-2) BASO x10^3 (test code 0.03 10*3/uL 0.01-0.07 = 704-7) Lab Interpretation Abnormal (test code = 77622-6) [facility] GLUCOSE (AUTOMATED)2022-01-30 03:06:20 Test Item Value Reference Range Interpretation Comments POCT GLU (test code = 9437136912) 336 mg/dL 70-110 H Lab Interpretation (test code = Abnormal 43650-0) [facility] 21:35:38 Test Item Value Reference Range Interpretation Comments PHOSPHORUS (test code = 8342139928) 4.3 mg/dL 2.5-5.0 Lab Interpretation (test code = Normal 50455-9) [facility] GLUCOSE (AUTOMATED)2022-01-29 21:21:35 Test Item Value Reference Range Interpretation Comments POCT GLU (test code = 0839952432) 354 mg/dL 70-110 H Lab Interpretation (test code = Abnormal 78966-4) [facility] GLUCOSE (AUTOMATED)2022-01-29 16:10:10 Test Item Value Reference Range Interpretation Comments POCT GLU (test code = 5787554203) 240 mg/dL 70-110 H Lab Interpretation (test code = Abnormal 29135-4) [facility] GLUCOSE (AUTOMATED)2022-01-29 15:16:07 Test Item Value Reference Range Interpretation Comments POCT GLU (test code = 4493208641) 219 mg/dL 70-110 H Lab Interpretation (test code = Abnormal 82516-0) [facility] GLUCOSE (AUTOMATED)2022-01-29 13:06:22 Test Item Value Reference Range Interpretation Comments POCT GLU (test code = 6689825177) 176 mg/dL 70-110 H Lab Interpretation (test code = Abnormal 70738-0) [facility] (61569[facility]2022-01-29 10:31:34 Test Item Value Reference Range Interpretation Comments NA (test code = 141 mmol/L 135-145 1870141508) K (test code = 4.2 mmol/L 3.5-5.0 7743858195) CL (test code = 96 mmol/L 98-108 L 9521044558) CO2 TOTAL (test code = 37 mmol/L 23-31 H 7136106496) AGAP (test code = 2-16 9387336250) BUN (test code = 20 mg/dL 7-23 7342719570) GLUCOSE (test code = 179 mg/dL 70-110 H 6784756960) CREATININE (test code = 0.90 mg/dL 0.50-1.04 9975363271) TOTAL BILI (test code = 0.7 mg/dL 0.1-1.7 6490212408) CALCIUM (test code = 8.3 mg/dL 8.6-10.6 L 2416709444) T PROTEIN (test code = 7.3 g/dL 6.3-8.2 2844149491) ALBUMIN (test code = 3.9 g/dL 3.5-5.0 9765803555) ALK PHOS (test code = 151 U/L 34-122 H 0954288706) ALTv (test code = 44 U/L 5-35 H 1742-6) AST(SGOT) (test code = 54 U/L 13-40 H 0907361137) eGFR (test code = mL/min/1.73m2 6861017923) JENNIFFER (test code = JENNIFFER) Association of [...] tests). Lab Interpretation Abnormal (test code = 26704-3) [facility] [id number] 10:06:38 Test Item Value Reference Range Interpretation Comments NT-proBNP (test code 3080 pg/mL See_Comment H [Autom ated = 0399837059) message] The system which generated this result transmitted reference range : <=125. The reference range was not used to interpret this result as normal/abnormal . JENNIFFER (test code = JENNIFFER) Biotin has been reported to cause a negative bias, interpret results relative to patient's use of biotin. Lab Interpretation Abnormal (test code = 23129-6) [facility] 09:58:35 Test Item Value Reference Range Interpretation Comments MAGNESIUM (test code = 3070682720) 1.8 mg/dL 1.7-2.4 Lab Interpretation (test code = Normal 25985-3) [facility] [id number] 09:47:53 Test Item Value Reference Range Interpretation Comments WBC (test code = See_Comment H [Automated 2590-2) message] The system which generated this result transmit alden reference range : 4.30 - 11.10 10*3/?L. The reference range was not used to interpret this result as normal/abnormal . RBC (test code = See_Comment L [Automated 279-8) message] The system which generated this result [...] (test code = 50.9 fL 39.0-49.9 H 79323-3) RDW-CV (test code = 15.5 % 12.0-15.5 788-0) PLT (test code = See_Comment [Automated 777-3) message] The system which generated this result transmit alden reference range : 166 - 358 10*3/ ?L. The reference range was not u sed to interpret th is result as normal/abnormal . MPV (test code = 9.9 fL 9.5-12.9 52680-7) NRBC/100 WBC (test See_Comment [Automat ed code = 3014130621) message] The system which generated this result transmit alden reference range : 0.0 - 10.0 /100 WBCs. The reference range was not used to interpret this result as normal/abnormal . NRBC x10^3 (test code <0.01 See_Comment [Auto mated = 8570184081) message] The system which generated this result transmit alden reference range : 10*3/?L. The reference range was not used to interpret this result as normal/abnormal . GRAN MAT (NEUT) % 87.2 % (test code = 770-8) IMM GRAN % (test code 0.50 % = 1415440363) LYMPH % (test code = 5.6 % 736-9) MONO % (test code = 5.9 % 5905-5) EOS % (test code = 0.4 % 713-8) BASO % (test code = 0.4 % 706-2) GRAN MAT x10^3(ANC) 10.37 10*3/uL 1.88-7.09 H (test code = 6466725657) IMM GRAN x10^3 (test 0.06 10*3/uL 0.00-0.06 code = 7924485734) LYMPH x10^3 (test code 0.66 10*3/uL 1.32-3.29 L = 731-0) MONO x10^3 (test code 0.70 10*3/uL 0.33-0.92 = 742-7) EOS x10^3 (test code = 0.05 10*3/uL 0.03-0.39 711-2) BASO x10^3 (test code 0.05 10*3/uL 0.01-0.07 = 704-7) Lab Interpretation Abnormal (test code = 11429-8) [facility] GLUCOSE (AUTOMATED)2022-01-29 05:48:29 Test Item Value Reference Range Interpretation Comments POCT GLU (test code = 0574468352) 297 mg/dL 70-110 H Lab Interpretation (test code = Abnormal 60128-8) [facility] GLUCOSE (AUTOMATED)2022-01-29 05:48:29 Test Item Value Reference Range Interpretation Comments POCT GLU (test code = 3397365437) 282 mg/dL 70-110 H Lab Interpretation (test code = Abnormal 63017-6) [facility] GLUCOSE (AUTOMATED)2022-01-28 23:35:33 Test Item Value Reference Range Interpretation Comments POCT GLU (test code = 8491906555) 302 mg/dL 70-110 H Lab Interpretation (test code = Abnormal 07031-4) [facility]12, [id number] 23:17:54 Test Item Value Reference Range Interpretation Comments VIT B12 (test code = 265 pg/mL 240-930 1043759125) JENNIFFER (test code = JENNIFFER) Biotin has been reported to cause a positive bias, interpret results relative to patient's use of biotin. Lab Interpretation (test Normal code = 64930-4) [facility]2022[facility] 20:35:43 Test Item Value Reference Range Interpretation Comments Procalcitonin (test 0.13 ng/mL <0.07 H code = 8645656401) JENNIFFER (test code = JENNIFFER) INTERPRETATION OF [...] lung abscess/empyema. For further information please refer to:[email or web address] Lab Interpretation Abnormal (test code = 62957-5) [facility] D, [id number] 20:34:43 Test Item Value Reference Range Interpretation Comments VIT D 25OH (test code = 23 ng/mL 25-80 L 27632-2) JENNIFFER (test code = JENNIFFER) Deficiency: <20 ng/mLInsufficiency: 20-24 ng/mLOptimal: 25-80 ng/mL Lab Interpretation (test Abnormal code = 75461-9) [facility] [id number] 18:15:31 Test Item Value Reference Interpretation Comments Range TROPONIN I (test 0.003 ng/mL See_Comment [Automated code = 5146608429) message] The system which generated this result [...] biotin. Lab Interpretation Normal (test code = 52370-7) [facility] [id number] 18:04:12 Test Item Value Reference Range Interpretation Comments URIC ACID (test code = 6439787993) 9.3 mg/dL 2.9-6.0 H Lab Interpretation (test code = Abnormal 99397-7) [facility]an[facility] (TTE)2022-01-28 17:57:52 Test Item Value Reference Range Interpretation Comments Height (test code = in 4979757775) Weight (test code = lbs 6852296423) Systolic BP (test code = mmHg 1262625832) Diastolic BP (test code = mmHg 3609421735) Heart Rate (test code = bpm 6454975352) Ao root annulus (test 3.1 cm code = 7088156467) Ao root diam (test code = 3.10 cm 0554223072) Aortic root (test code = 3.1 cm 1653628520) LA size (test code = 4.9 cm 1035431091) LVOT diameter (test code 2.10 cm = 0325248063) E wave decelartion time 0.25 s (test code = 7145933718) MV Peak E Marva (test code 83.7 cm/s = 7698072188) MV Peak A Marva (test code 66.0 cm/s = 3407427632) E/A ratio (test code = ratio 7159033091) MV E/e' septal (test code 8.2 cm/s = 0554427080) Tapse (test code = 1.68 cm 6734135062) Aortic valve mean 77.4 cm/s velocity (test code = 6198178684) Ao peak marva (test code = 124.6 cm/s 7335811439) Ao VTI (test code = 20.7 cm 6944128901) Ao max PG (test code = 6.20 mm[Hg] 5069845259) AV peak gradient (test mmHg code = 8127717772) AV mean gradient (test mmHg code = 0240864673) LVOT stroke volume (test 62.00 cm3 code = 3478318961) LVOT peak marva (test code 104.3 cm/s = 2397832936) LVOT mn grad (test code = mmHg 4104547740) AV LVOT peak gradient mmHg (test code = 6329679009) LVOT peak VTI (test code 17.9 cm = 3917279820) AV area by cont VTI (test 3.0 cm2 code = 2701381018) AV area peak marva (test 2.9 cm2 code = 0585584447) LV V1 mean (test code = 63.60 cm/s 2762370612) AV valve area (test code 3.00 cm2 = 4552761738) LVIDD (test code = 5.20 cm 1748846047) IVS (test code = 0.79 cm 5612846486) Interventricular Septum 0.79 cm Diastolic Thickness by 2D (test code = 6721660) LVPWD (test code = 0.66 cm 6359695262) PW (test code = 0.66 cm 0.6-1.8 7230642848) EF(Teich) (test code = 48.60 % 2359264296) LVIDS (test code = 3.90 cm 0085828813) FS (test code = 25 % 0634306996) EF - 2D (test code = 48.60 % 86229364) Radiology Study observation (narrative) (test code = 53452-4) JENNIFFER (test code = JENNIFFER) ?Left?Ventricle: Normal systolic function with a visually estimated EF of 60 - 65%. ?Tricuspid?Valve: Insufficient regurgant jet to estimate RVSP. ?RA pressure is 10-15 mmHg. VitalsHeight Weight BSA (Calculated - sq m) BP Pulse 5' 1" (1.549 m) 230 lb (104.3 kg) 2.12 sq meters 118/66 96 [facility] [id number] 14:19:29 Test Item Value Reference Interpretation Comments Range TROPONIN I (test 0.003 ng/mL See_Comment [Automated code = 9342059194) message] The system which generated this result [...] biotin. Lab Interpretation Normal (test code = 61558-1) [facility] [id number] 14:16:29 Test Item Value Reference Range Interpretation Comments NT-proBNP (test code 1170 pg/mL See_Comment H [Autom ated = 7690105595) message] The system which generated this result transmitted reference range : <=125. The reference range was not used to interpret this result as normal/abnormal . JENNIFFER (test code = JENNIFFER) Biotin has been reported to cause a negative bias, interpret results relative to patient's use of biotin. Lab Interpretation Abnormal (test code = 17748-5) [facility]IRON [id number] 14:14:29 Test Item Value Reference Range Interpretation Comments IRON (test code = 2565790004) 42 ug/dL 50-160 L TIBC (test code = 4229599396) 299 ug/dL 250-410 % FE SAT (test code = 7409214833) 14 % 20-50 L Lab Interpretation (test code = Abnormal 45169-0) [facility] GLUCOSE (AUTOMATED)2022-01-28 14:00:04 Test Item Value Reference Range Interpretation Comments POCT GLU (test code = 3491577728) 197 mg/dL 70-110 H Lab Interpretation (test code = Abnormal 54169-2) [facility] GLUCOSE (AUTOMATED)2022-01-28 13:01:52 Test Item Value Reference Range Interpretation Comments POCT GLU (test code = 3793218269) 211 mg/dL 70-110 H Lab Interpretation (test code = Abnormal 54982-6) [facility]FERRITIN [id number] 13:00:31 Test Item Value Reference Range Interpretation Comments FERRITIN (test code = 86.8 ng/mL 11.0-264.0 5130757931) JENNIFFER (test code = JENNIFFER) Biotin has been reported to cause a negative bias, interpret results relative to patient's use of biotin. Lab Interpretation (test Normal code = 36311-8) [facility]YROID STIMULATING [id number] 12:56:35 Test Item Value Reference Range Interpretation Comments TSH (test code = See_Comment [Automated message] 0179182017) The system [employer] generated this result transmitted ref erence range: 0.45 - 4 .70 mIU/L. The refe rence range was not u sed to interpret this result as normal/abnor mal. Lab Interpretation (test Normal code = 67283-7) [facility] HospitalSEDIMENTATION [id number] 12:41:55 Test Item Value Reference Range Interpretation Comments ESR (test code = See_Comment H [Automated message] 2110297122) The system [employer] generated this result transmitted ref erence range: 0 - 20 m m/HR. The reference r josselyn was not used to interpret this result as normal/abnor mal. Lab Interpretation (test Abnormal code = 20591-6) [facility] [id number] 12:38:13 Test Item Value Reference Interpretation Comments Range TROPONIN I (test 0.003 ng/mL See_Comment [Automated code = 6516261780) message] The system which generated this result [...] biotin. Lab Interpretation Normal (test code = 24066-9) [facility] [id number] 12:34:52 Test Item Value Reference Range Interpretation Comments NT-proBNP (test code 1150 pg/mL See_Comment H [Autom ated = 8370717740) message] The system which generated this result transmitted reference range : <=125. The reference range was not used to interpret this result as normal/abnormal . JENNIFFER (test code = JENNIFFER) Biotin has been reported to cause a negative bias, interpret results relative to patient's use of biotin. Lab Interpretation Abnormal (test code = 75907-8) [facility] HospitalLIPID PANEL (47553)(TOTAL CHOLESTEROL, TRIGLYCERIDES, HDL)2022-01-28 12:26:13 Test Item Value Reference Range Interpretation Comments CHOL (test code = 122 mg/dL 120-200 8558215554) HDL (test code = 27 mg/dL >50 L 3304883243) HDLC RATIO (test code = See_Comment [Au tomated message] 6773915829) The system [employer] generated this result transmit alden reference range : <=4.5. The refe rence range was not u sed to interpret th is result as normal/abnormal . TRIG (test code = 249 mg/dL 30-170 H 3026702755) LDL CHOL (test code = 45 mg/dL See_Comment [Auto mated message] 84583-9) The system [employer] generated this result transmit alden reference range : <=160. The refe rence range was not u sed to interpret th is result as normal/abnormal . VLDL (test code = 50 mg/dL 5-60 4417840815) Lab Interpretation (test Abnormal code = 46901-9) [facility] 12:26:13 Test Item Value Reference Range Interpretation Comments MAGNESIUM (test code = 1037755547) 1.9 mg/dL 1.7-2.4 Lab Interpretation (test code = Normal 40362-0) [facility]OL[facility] (16325)2022-01-28 12:25:53 Test Item Value Reference Range Interpretation Comments NA (test code = 141 mmol/L 135-145 0889458911) K (test code = 4.9 mmol/L 3.5-5.0 0299630398) CL (test code = 101 mmol/L 98-108 9955244974) CO2 TOTAL (test code = 32 mmol/L 23-31 H 4938283845) AGAP (test code = 2-16 5026180344) BUN (test code = 20 mg/dL 7-23 5729256632) GLUCOSE (test code = 217 mg/dL 70-110 H 0508527792) CREATININE (test code = 1.05 mg/dL 0.50-1.04 H 8151973911) TOTAL BILI (test code = 0.7 mg/dL 0.1-1.0 7735627469) CALCIUM (test code = 8.5 mg/dL 8.6-10.6 L 0177292359) T PROTEIN (test code = 7.2 g/dL 6.3-8.2 7181699703) ALBUMIN (test code = 3.9 g/dL 3.5-5.0 6590791808) ALK PHOS (test code = 161 U/L 34-122 H 3049590346) ALTv (test code = 50 U/L 5-35 H 1742-6) AST(SGOT) (test code = 61 U/L 13-40 H 8711546468) eGFR (test code = mL/min/1.73m2 3183437721) JENNIFFER (test code = JENNIFFER) Association of [...] tests). Lab Interpretation Abnormal (test code = 05644-0) [facility] 12:25:53 Test Item Value Reference Range Interpretation Comments PHOSPHORUS (test code = 6722086950) 5.3 mg/dL 2.5-5.0 H Lab Interpretation (test code = Abnormal 65661-8) [facility] [id number] 12:25:33 Test Item Value Reference Range Interpretation Comments URIC ACID (test code = 5194797493) 9.5 mg/dL 2.9-6.0 H Lab Interpretation (test code = Abnormal 62345-8) [facility]CREATINE [id number] 12:25:13 Test Item Value Reference Range Interpretation Comments CK (test code = 0861675002) 27 U/L 33-194 L Lab Interpretation (test code = Abnormal 28533-3) [facility] HospitalGLYCOSYLATED HEMOGLOBIN (A1C)2022-01-28 07:50:20 Test Item Value Reference Range Interpretation Comments HGB A1C (test code = 8.9 % 4.0-5.7 H 4548-4) JENNIFFER (test code = JENNIFFER) Reference RangesNormal: <5.7%Prediabetes: 5.7 - 6.4%Diabetes: > 6.5% Lab Interpretation (test Abnormal code = 21593-9) [facility] [id number] 03:04:27 Test Item Value Reference Interpretation Comments Range TROPONIN I (test 0.002 ng/mL See_Comment [Automated code = 2793215391) message] The system which generated this result [...] biotin. Lab Interpretation Normal (test code = 57771-4) [facility] [id number] 03:01:09 Test Item Value Reference Range Interpretation Comments NT-proBNP (test code 358 pg/mL See_Comment H [Autom ated = 8386791204) message] The system which generated this result transmitted reference range : <=125. The reference range was not used to interpret this result as normal/abnormal . JENNIFFER (test code = JENNIFFER) Biotin has been reported to cause a negative bias, interpret results relative to patient's use of biotin. Lab Interpretation Abnormal (test code = 10916-2) [facility]ACTIVATED PARTIAL THRMPLAS [id number] 02:54:28 Test Item Value Reference Range Interpretation Comments APTT Patient (test See_Comment [Automat ed code = 3173-2) message] The system which generated this result transmitted reference range : 23 - 38 Seconds . The reference range was not used to interpr et this result as normal/abnormal . JENNIFFER (test code = JENNIFFER) The [facility] patient population mean normal value for aPTT is 30 seconds. Lab Interpretation Normal (test code = 98790-0) [facility]OLIC PAN[facility] (07295)2022-01-28 02:52:27 Test Item Value Reference Range Interpretation Comments NA (test code = 137 mmol/L 135-145 4803523020) K (test code = 5.0 mmol/L 3.5-5.0 1562095527) CL (test code = 101 mmol/L 98-108 1925894794) CO2 TOTAL (test code = 22 mmol/L 23-31 L 2099774138) AGAP (test code = 2-16 6771820660) BUN (test code = 21 mg/dL 7-23 8259149949) GLUCOSE (test code = 334 mg/dL 70-110 H 4409971564) CREATININE (test code = 1.03 mg/dL 0.50-1.04 3944245200) TOTAL BILI (test code = 0.8 mg/dL 0.1-1.8 2247961242) CALCIUM (test code = 9.0 mg/dL 8.6-10.6 4216810468) T PROTEIN (test code = 7.3 g/dL 6.3-8.2 6182117461) ALBUMIN (test code = 4.2 g/dL 3.5-5.0 8369089114) ALK PHOS (test code = 186 U/L 34-122 H 5140246170) ALTv (test code = 53 U/L 5-35 H 1742-6) AST(SGOT) (test code = 98 U/L 13-40 H 9257107385) eGFR (test code = mL/min/1.73m2 5721455289) JENNIFFER (test code = JENNIFFER) Association of [...] tests). Lab Interpretation Abnormal (test code = 34761-6) [id number] 02:51:06 Test Item Value Reference Range Interpretation Comments PROTIME PATIENT (test See_Comment [Auto mated message] code = 5964-2) The system [employer] generated this result transmitted ref erence range: 12.0 - 1 4.7 Seconds. The re ference range was not u sed to interpret this result as normal/abnor mal. INR (test code = 6301-6) Nor mal INR <1.1; Warfarin Therap eutic range 2.0 to 3. 0 or 2.5 to 3.5, dep ending upon the indica tions. Lab Interpretation (test Normal code = 85332-5) [facility] WITH [id number] 02:43:03 Test Item Value Reference Range Interpretation [...] RDW-SD (test code = 49.4 fL 39.0-49.9 25993-2) RDW-CV (test code = 15.6 % 12.0-15.5 H 788-0) PLT (test code = See_Comment [Automated 777-3) message] The sy stem which generated this result transmitted reference range : 166 - 358 10*3/ ?L. The reference r josselyn was not used to interpret this result as normal/abnormal . MPV (test code = 9.7 fL 9.5-12.9 74882-1) NRBC/100 WBC (test See_Comment [Automat ed code = 6915067174) message] The system which generated this result transmitted reference range : 0.0 - 10.0 /100 WBCs. The refer ence range was not u sed to interpret th is result as normal/abnormal . NRBC x10^3 (test code <0.01 See_Comment [Auto mated = 3160589322) message] The s ystem which generated this result transmitted reference range : 10*3/?L. The reference range was not used to interpret this result as normal/abnormal . GRAN MAT (NEUT) % 88.0 % (test code = 770-8) IMM GRAN % (test code 0.60 % = 0039822744) LYMPH % (test code = 5.4 % 736-9) MONO % (test code = 4.5 % 5905-5) EOS % (test code = 0.9 % 713-8) BASO % (test code = 0.6 % 706-2) GRAN MAT x10^3(ANC) 9.50 10*3/uL 1.88-7.09 H (test code = 8820805989) IMM GRAN x10^3 (test 0.06 10*3/uL 0.00-0.06 code = 9835044261) LYMPH x10^3 (test code 0.58 10*3/uL 1.32-3.29 L = 731-0) MONO x10^3 (test code 0.49 10*3/uL 0.33-0.92 = 742-7) EOS x10^3 (test code = 0.10 10*3/uL 0.03-0.39 711-2) BASO x10^3 (test code 0.06 10*3/uL 0.01-0.07 = 704-7) Lab Interpretation Abnormal (test code = 82306-9) [facility]. METABOLIC PANEL ([id number])2022-01-12 23:54:59 Test Item Value Reference Range Interpretation Comments NA (test code = 143 mmol/L 135-145 6742352228) K (test code = 4.1 mmol/L 3.5-5.0 5165329075) CL (test code = 103 mmol/L 98-108 3251354288) CO2 TOTAL (test code = 27 mmol/L 23-31 0331164765) AGAP (test code = 2-16 4479559211) BUN (test code = 12 mg/dL 7-23 9078222262) GLUCOSE (test code = 278 mg/dL 70-110 H 8497871745) CREATININE (test code = 0.61 mg/dL 0.50-1.04 8553495531) TOTAL BILI (test code = 0.6 mg/dL 0.1-1.2 5328382254) CALCIUM (test code = 9.6 mg/dL 8.6-10.6 2153539076) T PROTEIN (test code = 7.6 g/dL 6.3-8.2 4029722376) ALBUMIN (test code = 4.3 g/dL 3.5-5.0 5407588773) ALK PHOS (test code = 130 U/L 34-122 H 7133171018) ALTv (test code = 29 U/L 5-35 1742-6) AST(SGOT) (test code = 39 U/L 13-40 9117078235) eGFR (test code = mL/min/1.73m2 3169668145) JENNIFFER (test code = JENNIFFER) Association of [...] tests). Lab Interpretation Abnormal (test code = 83903-3) [facility] WITH [id number] 23:43:55 Test Item Value Reference Range Interpretation [...] (test code = 47.8 fL 39.0-49.9 Previous 92149-8) preliminary verified result was 48.1 fL on [...] (test code = 10.0 fL 9.5-12.9 Previous 67675-2) preliminary verified result was 9.9 fL on 2021 at 1842 CDT IPF % (test code = 3.9 % 1.3-7.7 Platelet count 6220075674) measured by fluorescence method. NRBC/100 WBC (test See_Comment [Automat ed code = 1381056198) message] The system which generated this result transmitted reference range : 0.0 - 10.0 /100 WBCs. The refer ence range was not u sed to interpret th is result as normal/abnormal . NRBC x10^3 (test code <0.01 See_Comment [Auto mated = 2796262304) message] The s ystem which generated this result transmitted reference range : 10*3/?L. The reference range was not used to interpret this result as normal/abnormal . GRAN MAT (NEUT) % 85.9 % (test code = 770-8) IMM GRAN % (test code 0.90 % = 2726567151) LYMPH % (test code = 4.7 % 736-9) MONO % (test code = 5.3 % 5905-5) EOS % (test code = 2.6 % 713-8) BASO % (test code = 0.6 % 706-2) GRAN MAT x10^3(ANC) 6.93 10*3/uL 1.88-7.09 (test code = 3593275679) IMM GRAN x10^3 (test 0.07 10*3/uL 0.00-0.06 H code = 1045961041) LYMPH x10^3 (test code 0.38 10*3/uL 1.32-3.29 L = 731-0) MONO x10^3 (test code 0.43 10*3/uL 0.33-0.92 = 742-7) EOS x10^3 (test code = 0.21 10*3/uL 0.03-0.39 711-2) BASO x10^3 (test code 0.05 10*3/uL 0.01-0.07 = 704-7) Lab Interpretation Abnormal (test code = 10654-6) [facility] L[facility] [id number] 23:29:12 Test Item Value Reference Range Interpretation Comments PH (test code = 7.32-7.42 L 4559563754) PCO2 CELIA (test code = See_Comment H [Auto mated 3603351644) message] The sy stem which generated this result transmitted reference range : 41 - 51 mmHg. The reference range was not used to interpret this result as normal/abnormal . PO2 CELIA (test code = See_Comment HH [Autom ated 7715174507) message] The sy stem which generated this result transmitted reference range : 25 - 40 mmHg. The reference range was not used to interpret this result as normal/abnormal . HCO3 CELIA (test code = See_Comment H [Auto mated 0688905781) message] The sy stem which generated this result transmitted reference range : 24 - 28 mEq/L. The reference range was not used to interpret this result as normal/abnormal . AC VBE(BEAKER) (test mEq/L code = 7857046424) THB CELIA (test code = 12.1 g/dL 12.0-16.0 8447796230) %O2HB CELIA (test code = 90.8 % 52.0-63.0 H 6388659786) %COHB CELIA (test code = 0.0 % 0.0-1.5 0717918863) %METHB CELIA (test code = 0.0 % 0.4-1.5 L 4787060337) VOL%O2 CELIA (test code = 15.5 % 6.0-12.0 H 2210948246) NA (test code = 145 mmol/L 135-145 9695244400) K+ (test code = 4.1 mmol/L 3.5-5.0 4854110285) AC CA IONZ (test code = 5.30 mg/dL 4.50-5.30 4089960403) GLUCOSE (test code = 291 mg/dL 70-110 H 6329464472) LACTIC ACID (test code 1.04 mmol/L 0.50-2.20 = 7675212905) Lab Interpretation Abnormal (test code = 85093-5) [facility] GLUCOSE (AUTOMATED)2022-01-12 17:49:50 Test Item Value Reference Range Interpretation Comments POCT GLU (test code = 2485538767) 120 mg/dL 70-110 H Lab Interpretation (test code = Abnormal 73795-2) [facility] GLUCOSE (AUTOMATED)2022-01-12 13:25:37 Test Item Value Reference Range Interpretation Comments POCT GLU (test code = 0290819505) 76 mg/dL 70-110 Lab Interpretation (test code = Normal 54597-7) [facility] GLUCOSE (AUTOMATED)2022-01-12 05:53:23 Test Item Value Reference Range Interpretation Comments POCT GLU (test code = 6362629509) 107 mg/dL 70-110 Lab Interpretation (test code = Normal 93297-7) [facility] GLUCOSE (AUTOMATED)2022-01-11 23:03:13 Test Item Value Reference Range Interpretation Comments POCT GLU (test code = 3828352648) 142 mg/dL 70-110 H Lab Interpretation (test code = Abnormal 06623-7) [facility] GLUCOSE (AUTOMATED)2022-01-11 17:22:09 Test Item Value Reference Range Interpretation Comments POCT GLU (test code = 2682488222) 106 mg/dL 70-110 Lab Interpretation (test code = Normal 91438-2) [facility] GLUCOSE (AUTOMATED)2022-01-11 13:11:20 Test Item Value Reference Range Interpretation Comments POCT GLU (test code = 4227565662) 91 mg/dL 70-110 Lab Interpretation (test code = Normal 90963-6) [facility] METABOLIC PANEL (NA, K, CL, CO2, GLUCOSE, BUN, CREATININE, CA)2022-01-11 11:52:16 Test Item Value Reference Range Interpretation Comments NA (test code = 141 mmol/L 135-145 8381201345) K (test code = 3.7 mmol/L 3.5-5.0 6397154427) CL (test code = 100 mmol/L 98-108 6617242417) CO2 TOTAL (test code 30 mmol/L 23-31 = 6327950798) AGAP (test code = 2-16 3311389071) BUN (test code = 14 mg/dL 7-23 3553370501) GLUCOSE (test code = 85 mg/dL 70-110 1810005032) CREATININE (test code 0.62 mg/dL 0.50-1.04 = 6647844477) CALCIUM (test code = 8.9 mg/dL 8.6-10.6 0474478572) eGFR (test code = mL/min/1.73m2 2725841337) JENNIFFER (test code = JENNIFFER) Association of [...] or urine or abnormalities in imaging tests). [facility] Test Item Value Reference Range Interpretation Comments MAGNESIUM (test code = 4268422541) 1.9 mg/dL 1.7-2.4 Lab Interpretation (test code = Normal 31697-4) [facility] 11:36:18 Test Item Value Reference Range Interpretation Comments POCT GLU (test code = 7829604268) 95 mg/dL 70-110 Lab Interpretation (test code = Normal 94964-7) [facility] WITH [id number] 10:51:12 Test Item Value Reference Range Interpretation [...] RDW-SD (test code = 46.5 fL 39.0-49.9 30796-9) RDW-CV (test code = 14.3 % 12.0-15.5 788-0) PLT (test code = See_Comment [Automated 777-3) message] The sy stem which generated this result transmitted reference range : 166 - 358 10*3/ ?L. The reference r josselyn was not used to interpret this result as normal/abnormal . MPV (test code = 8.5 fL 9.5-12.9 L 50689-6) NRBC/100 WBC (test See_Comment [Automat ed code = 0452168620) message] The system which generated this result transmitted reference range : 0.0 - 10.0 /100 WBCs. The refer ence range was not u sed to interpret th is result as normal/abnormal . NRBC x10^3 (test code <0.01 See_Comment [Auto mated = 9137697181) message] The s ystem which generated this result transmitted reference range : 10*3/?L. The reference range was not used to interpret this result as normal/abnormal . GRAN MAT (NEUT) % 72.4 % (test code = 770-8) IMM GRAN % (test code 0.60 % = 4267858982) LYMPH % (test code = 12.0 % 736-9) MONO % (test code = 9.8 % 5905-5) EOS % (test code = 4.4 % 713-8) BASO % (test code = 0.8 % 706-2) GRAN MAT x10^3(ANC) 4.64 10*3/uL 1.88-7.09 (test code = 7597770712) IMM GRAN x10^3 (test 0.04 10*3/uL 0.00-0.06 code = 4213533915) LYMPH x10^3 (test code 0.77 10*3/uL 1.32-3.29 L = 731-0) MONO x10^3 (test code 0.63 10*3/uL 0.33-0.92 = 742-7) EOS x10^3 (test code = 0.28 10*3/uL 0.03-0.39 711-2) BASO x10^3 (test code 0.05 10*3/uL 0.01-0.07 = 704-7) Lab Interpretation Abnormal (test code = 29699-6) [facility] GLUCOSE (AUTOMATED)2022-01-11 04:16:05 Test Item Value Reference Range Interpretation Comments POCT GLU (test code = 7828203909) 100 mg/dL 70-110 Lab Interpretation (test code = Normal 98616-5) [facility] GLUCOSE (AUTOMATED)2022-01-10 22:37:14 Test Item Value Reference Range Interpretation Comments POCT GLU (test code = 6623171540) 109 mg/dL 70-110 Lab Interpretation (test code = Normal 31608-3) [facility] GLUCOSE (AUTOMATED)2022-01-10 16:49:31 Test Item Value Reference Range Interpretation Comments POCT GLU (test code = 1048547245) 151 mg/dL 70-110 H Lab Interpretation (test code = Abnormal 26829-9) [facility] GLUCOSE (AUTOMATED)2022-01-10 13:04:04 Test Item Value Reference Range Interpretation Comments POCT GLU (test code = 8284374690) 133 mg/dL 70-110 H Lab Interpretation (test code = Abnormal 99055-3) [facility] 10:48:27 Test Item Value Reference Range Interpretation Comments POCT GLU (test code = 4434651276) 140 mg/dL 70-110 H Lab Interpretation (test code = Abnormal 04126-1) [facility] METABOLIC PANEL (NA, K, CL, CO2, GLUCOSE, BUN, CREATININE, CA)2022-01-10 07:43:41 Test Item Value Reference Range Interpretation Comments NA (test code = 139 mmol/L 135-145 2627114794) K (test code = 4.1 mmol/L 3.5-5.0 4980007262) CL (test code = 100 mmol/L 98-108 3467296958) CO2 TOTAL (test code = 32 mmol/L 23-31 H 7970598101) AGAP (test code = 2-16 3320621229) BUN (test code = 18 mg/dL 7-23 8134319715) GLUCOSE (test code = 146 mg/dL 70-110 H 3269886584) CREATININE (test code = 0.79 mg/dL 0.50-1.04 9130151238) CALCIUM (test code = 8.7 mg/dL 8.6-10.6 2020481812) eGFR (test code = mL/min/1.73m2 0668865179) JENNIFFER (test code = JENNIFFER) Association of [...] tests). Lab Interpretation Abnormal (test code = 20551-0) [facility] 07[facility]43:41 Test Item Value Reference Range Interpretation Comments MAGNESIUM (test code = 0210890767) 2.1 mg/dL 1.7-2.4 Lab Interpretation (test code = Normal 66704-6) [facility] WITH [id number] 07:29:01 Test Item Value Reference Range Interpretation [...] RDW-SD (test code = 47.2 fL 39.0-49.9 57987-7) RDW-CV (test code = 14.1 % 12.0-15.5 788-0) PLT (test code = See_Comment [Automated 777-3) message] The sy stem which generated this result transmitted reference range : 166 - 358 10*3/ ?L. The reference r josselyn was not used to interpret this result as normal/abnormal . MPV (test code = 8.3 fL 9.5-12.9 L 72577-6) NRBC/100 WBC (test See_Comment [Automat ed code = 6838405619) message] The system which generated this result transmitted reference range : 0.0 - 10.0 /100 WBCs. The refer ence range was not u sed to interpret th is result as normal/abnormal . NRBC x10^3 (test code <0.01 See_Comment [Auto mated = 8086783643) message] The s ystem which generated this result transmitted reference range : 10*3/?L. The reference range was not used to interpret this result as normal/abnormal . GRAN MAT (NEUT) % 75.5 % (test code = 770-8) IMM GRAN % (test code 0.50 % = 7833644698) LYMPH % (test code = 13.6 % 736-9) MONO % (test code = 5.4 % 5905-5) EOS % (test code = 4.4 % 713-8) BASO % (test code = 0.6 % 706-2) GRAN MAT x10^3(ANC) 5.01 10*3/uL 1.88-7.09 (test code = 3127697017) IMM GRAN x10^3 (test 0.03 10*3/uL 0.00-0.06 code = 3416321655) LYMPH x10^3 (test code 0.90 10*3/uL 1.32-3.29 L = 731-0) MONO x10^3 (test code 0.36 10*3/uL 0.33-0.92 = 742-7) EOS x10^3 (test code = 0.29 10*3/uL 0.03-0.39 711-2) BASO x10^3 (test code 0.04 10*3/uL 0.01-0.07 = 704-7) Lab Interpretation Abnormal (test code = 12343-0) [facility] GLUCOSE (AUTOMATED)2022-01-10 04:49:48 Test Item Value Reference Range Interpretation Comments POCT GLU (test code = 1364666345) 150 mg/dL 70-110 H Lab Interpretation (test code = Abnormal 80469-2) [facility] GLUCOSE (AUTOMATED)2022-01-09 17:24:10 Test Item Value Reference Range Interpretation Comments POCT GLU (test code = 0445005790) 114 mg/dL 70-110 H Lab Interpretation (test code = Abnormal 79285-2) [facility] GLUCOSE (AUTOMATED)2022-01-09 12:48:19 Test Item Value Reference Range Interpretation Comments POCT GLU (test code = 8466876675) 107 mg/dL 70-110 Lab Interpretation (test code = Normal 70679-8) [facility] METABOLIC PANEL (NA, K, CL, CO2, GLUCOSE, BUN, CREATININE, CA)2022-01-09 11:11:00 Test Item Value Reference Range Interpretation Comments NA (test code = 141 mmol/L 135-145 3170248145) K (test code = 3.7 mmol/L 3.5-5.0 0785058139) CL (test code = 100 mmol/L 98-108 5966077615) CO2 TOTAL (test code = 32 mmol/L 23-31 H 7458566878) AGAP (test code = 2-16 9126582032) BUN (test code = 19 mg/dL 7-23 1469629133) GLUCOSE (test code = 115 mg/dL 70-110 H 1198261675) CREATININE (test code = 0.81 mg/dL 0.50-1.04 3820955707) CALCIUM (test code = 8.6 mg/dL 8.6-10.6 8206476413) eGFR (test code = mL/min/1.73m2 9499843812) JENNIFFER (test code = JENNIFFER) Association of [...] tests). Lab Interpretation Abnormal (test code = 92282-5) [facility] WITH [id number] 10:57:57 Test Item Value Reference Range Interpretation Comments WBC (test code = See_Comment [Automated 6890-2) message] The sy stem which generated this result transmitted reference range : 4.30 - 11.10 10*3/?L. The reference range was not used to interpret this result as normal/abnormal . RBC (test code = See_Comment L [Automated 379-8) message] The sy stem which generated this [...] RDW-SD (test code = 49.1 fL 39.0-49.9 76811-2) RDW-CV (test code = 14.6 % 12.0-15.5 788-0) PLT (test code = See_Comment [Automated 777-3) message] The sy stem which generated this result transmitted reference range : 166 - 358 10*3/ ?L. The reference r josselyn was not used to interpret this result as normal/abnormal . MPV (test code = 8.6 fL 9.5-12.9 L 66540-5) NRBC/100 WBC (test See_Comment [Automat ed code = 7705139144) message] The system which generated this result transmitted reference range : 0.0 - 10.0 /100 WBCs. The refer ence range was not u sed to interpret th is result as normal/abnormal . NRBC x10^3 (test code <0.01 See_Comment [Auto mated = 6583178855) message] The s ystem which generated this result transmitted reference range : 10*3/?L. The reference range was not used to interpret this result as normal/abnormal . GRAN MAT (NEUT) % 79.2 % (test code = 770-8) IMM GRAN % (test code 0.40 % = 3665262644) LYMPH % (test code = 10.7 % 736-9) MONO % (test code = 5.4 % 5905-5) EOS % (test code = 3.5 % 713-8) BASO % (test code = 0.8 % 706-2) GRAN MAT x10^3(ANC) 6.15 10*3/uL 1.88-7.09 (test code = 1365508784) IMM GRAN x10^3 (test 0.03 10*3/uL 0.00-0.06 code = 4897668338) LYMPH x10^3 (test code 0.83 10*3/uL 1.32-3.29 L = 731-0) MONO x10^3 (test code 0.42 10*3/uL 0.33-0.92 = 742-7) EOS x10^3 (test code = 0.27 10*3/uL 0.03-0.39 711-2) BASO x10^3 (test code 0.06 10*3/uL 0.01-0.07 = 704-7) Lab Interpretation Abnormal (test code = 20622-5) [facility] GLUCOSE (AUTOMATED)2022-01-09 10:44:16 Test Item Value Reference Range Interpretation Comments POCT GLU (test code = 4702753989) 116 mg/dL 70-110 H Lab Interpretation (test code = Abnormal 83501-5) [facility] GLUCOSE (AUTOMATED)2022-01-09 04:22:02 Test Item Value Reference Range Interpretation Comments POCT GLU (test code = 2559061656) 124 mg/dL 70-110 H Lab Interpretation (test code = Abnormal 03554-8) [facility] GLUCOSE (AUTOMATED)2022-01-08 23:21:27 Test Item Value Reference Range Interpretation Comments POCT GLU (test code = 2036598780) 122 mg/dL 70-110 H Lab Interpretation (test code = Abnormal 64339-3) [facility] GLUCOSE (AUTOMATED)2022-01-08 18:15:20 Test Item Value Reference Range Interpretation Comments POCT GLU (test code = 2633707897) 104 mg/dL 70-110 Lab Interpretation (test code = Normal 70194-2) [facility] GLUCOSE (AUTOMATED)2022-01-08 13:35:04 Test Item Value Reference Range Interpretation Comments POCT GLU (test code = 4558213243) 132 mg/dL 70-110 H Lab Interpretation (test code = Abnormal 34777-5) [facility] METABOLIC PANEL (NA, K, CL, CO2, GLUCOSE, BUN, CREATININE, CA)2022-01-08 11:08:57 Test Item Value Reference Range Interpretation Comments NA (test code = 142 mmol/L 135-145 2756671596) K (test code = 3.5 mmol/L 3.5-5.0 0292785520) CL (test code = 99 mmol/L 98-108 1886977809) CO2 TOTAL (test code = 34 mmol/L 23-31 H 1372623192) AGAP (test code = 2-16 0599434684) BUN (test code = 16 mg/dL 7-23 7832941360) GLUCOSE (test code = 131 mg/dL 70-110 H 2796537530) CREATININE (test code = 0.83 mg/dL 0.50-1.04 7848993374) CALCIUM (test code = 8.5 mg/dL 8.6-10.6 L 5611859514) eGFR (test code = mL/min/1.73m2 0077025844) JENNIFFER (test code = JENNIFFER) Association of [...] tests). Lab Interpretation Abnormal (test code = 96443-7) [facility] WITH [id number] 10:58:37 Test Item Value Reference Range Interpretation Comments WBC (test code = See_Comment [Automated 3248-2) message] The sy stem which generated this [...] RDW-SD (test code = 48.8 fL 39.0-49.9 29603-7) RDW-CV (test code = 14.7 % 12.0-15.5 788-0) PLT (test code = See_Comment [Automated 777-3) message] The sy stem which generated this result transmitted reference range : 166 - 358 10*3/ ?L. The reference r josselyn was not used to interpret this result as normal/abnormal . MPV (test code = 8.5 fL 9.5-12.9 L 37267-2) NRBC/100 WBC (test See_Comment [Automat ed code = 5202778596) message] The system which generated this result transmitted reference range : 0.0 - 10.0 /100 WBCs. The refer ence range was not u sed to interpret th is result as normal/abnormal . NRBC x10^3 (test code <0.01 See_Comment [Auto mated = 0032912821) message] The s ystem which generated this result transmitted reference range : 10*3/?L. The reference range was not used to interpret this result as normal/abnormal . GRAN MAT (NEUT) % 75.9 % (test code = 770-8) IMM GRAN % (test code 0.30 % = 9573693257) LYMPH % (test code = 12.3 % 736-9) MONO % (test code = 7.0 % 5905-5) EOS % (test code = 3.6 % 713-8) BASO % (test code = 0.9 % 706-2) GRAN MAT x10^3(ANC) 4.89 10*3/uL 1.88-7.09 (test code = 1789916077) IMM GRAN x10^3 (test <0.03 0.00-0.06 code = 0392120705) LYMPH x10^3 (test code 0.79 10*3/uL 1.32-3.29 L = 731-0) MONO x10^3 (test code 0.45 10*3/uL 0.33-0.92 = 742-7) EOS x10^3 (test code = 0.23 10*3/uL 0.03-0.39 711-2) BASO x10^3 (test code 0.06 10*3/uL 0.01-0.07 = 704-7) Lab Interpretation Abnormal (test code = 63489-5) [facility] GLUCOSE (AUTOMATED)2022-01-08 10:57:56 Test Item Value Reference Range Interpretation Comments POCT GLU (test code = 2941218745) 122 mg/dL 70-110 H Lab Interpretation (test code = Abnormal 16063-2) [facility] GLUCOSE (AUTOMATED)2022-01-08 05:44:22 Test Item Value Reference Range Interpretation Comments POCT GLU (test code = 2211571643) 150 mg/dL 70-110 H Lab Interpretation (test code = Abnormal 31484-1) [facility] GLUCOSE (AUTOMATED)2022-01-07 22:00:04 Test Item Value Reference Range Interpretation Comments POCT GLU (test code = 7995453802) 175 mg/dL 70-110 H Lab Interpretation (test code = Abnormal 04176-4) [facility] GLUCOSE (AUTOMATED)2022-01-07 17:25:35 Test Item Value Reference Range Interpretation Comments POCT GLU (test code = 4410165017) 149 mg/dL 70-110 H Lab Interpretation (test code = Abnormal 99653-9) [facility] [id number] 15:01:23 Test Item Value Reference Range Interpretation Comments Blood Culture-Aerobic No organisms No growth Previo us (test code = 09210-1) isolated prelim inary verified result was Culture [...] Culture-Anaerobic isolated preliminar y (test code = 52555-2) verifi ed result was Culture In Progress on 01/02/2022 at 13 CDTPrevious preliminary verified result was No growth a t 24 hours on 01/03/2022 at 10 CDTPrevious preliminary verified result was No growth a t 48 hours on 01/04/2022 at 10 CDTPrevious preliminary verified result was No growth a t 72 hours on 01/05/2022 at 10 CDT Lab Interpretation Normal (test code = 41219-5) [facility] Culture - Peripheral Vein # 15:01:23 Test Item Value Reference Range Interpretation Comments Blood Culture-Aerobic No organisms No growth Previo us (test code = 35486-6) isolated prelim inary verified result was Culture [...] Culture-Anaerobic isolated preliminar y (test code = 78890-1) verifi ed result was Culture In Progress [...] CDT Lab Interpretation Normal (test code = 03037-5) [facility]20:20 Test Item Value Reference Range Interpretation Comments POCT GLU (test code = 9740877066) 153 mg/dL 70-110 H Lab Interpretation (test code = Abnormal 66906-7) [facility] METABOLIC PANEL (NA, K, CL, CO2, GLUCOSE, BUN, CREATININE, CA)2022-01-07 07:43:22 Test Item Value Reference Range Interpretation Comments NA (test code = 141 mmol/L 135-145 [id number]) K (test code = 3.8 mmol/L 3.5-5.0 5436047300) CL (test code = 101 mmol/L 98-108 3066648308) CO2 TOTAL (test code = 33 mmol/L 23-31 H [id number]) AGAP (test code = 2-16 4731171830) BUN (test code = 13 mg/dL 7-23 4806524585) GLUCOSE (test code = 127 mg/dL 70-110 H [id number]) CREATININE (test code = 0.89 mg/dL 0.50-1.04 0808011604) CALCIUM (test code = 8.4 mg/dL 8.6-10.6 L 4343982697) eGFR (test code = mL/min/1.73m2 3148730569) JENNIFFER (test code = JENNIFFER) Association of [...] tests). Lab Interpretation Abnormal (test code = 32438-6) [facility] with [id number] 07:29:22 Test Item Value Reference Range Interpretation [...] RDW-SD (test code = 48.2 fL 39.0-49.9 18967-4) RDW-CV (test code = 14.7 % 12.0-15.5 788-0) PLT (test code = See_Comment [Automated 777-3) message] The sy stem which generated this result transmitted reference range : 166 - 358 10*3/ ?L. The reference r josselyn was not used to interpret this result as normal/abnormal . MPV (test code = 9.0 fL 9.5-12.9 L 17953-6) NRBC/100 WBC (test See_Comment [Automat ed code = 7959545231) message] The system which generated this result transmitted reference range : 0.0 - 10.0 /100 WBCs. The refer ence range was not u sed to interpret th is result as normal/abnormal . NRBC x10^3 (test code <0.01 See_Comment [Auto mated = 0970223050) message] The s ystem which generated this result transmitted reference range : 10*3/?L. The reference range was not used to interpret this result as normal/abnormal . GRAN MAT (NEUT) % 81.4 % (test code = 770-8) IMM GRAN % (test code 0.30 % = 4193479486) LYMPH % (test code = 10.3 % 736-9) MONO % (test code = 4.6 % 5905-5) EOS % (test code = 2.8 % 713-8) BASO % (test code = 0.6 % 706-2) GRAN MAT x10^3(ANC) 6.39 10*3/uL 1.88-7.09 (test code = 7383614281) IMM GRAN x10^3 (test <0.03 0.00-0.06 code = 6325016475) LYMPH x10^3 (test code 0.81 10*3/uL 1.32-3.29 L = 731-0) MONO x10^3 (test code 0.36 10*3/uL 0.33-0.92 = 742-7) EOS x10^3 (test code = 0.22 10*3/uL 0.03-0.39 711-2) BASO x10^3 (test code 0.05 10*3/uL 0.01-0.07 = 704-7) Lab Interpretation Abnormal (test code = 93636-8) [facility]54:55 Test Item Value Reference Range Interpretation Comments POCT GLU (test code = 8660221003) 125 mg/dL 70-110 H Lab Interpretation (test code = Abnormal 29347-2) [facility] [id number] 04:01:23 Test Item Value Reference Range Interpretation Comments Blood Culture-Aerobic No organisms No growth Previo us (test code = 40505-9) isolated prelim inary verified result was Culture [...] Culture-Anaerobic isolated preliminar y (test code = 93634-2) verifi ed result was Culture In Progress [...] accordingly. Lab Interpretation Normal (test code = 89822-8) [facility] [id number] 03:01:22 Test Item Value Reference Range Interpretation Comments Blood Culture-Aerobic No organisms No growth Previo us (test code = 40699-9) isolated prelim inary verified result was Culture [...] Culture-Anaerobic isolated preliminar y (test code = 67440-3) verifi ed result was Culture In Progress [...] accordingly. Lab Interpretation Normal (test code = 18334-2) [facility] GLUCOSE (AUTOMATED)2022-01-06 23:38:26 Test Item Value Reference Range Interpretation Comments POCT GLU (test code = 9662658858) 181 mg/dL 70-110 H Lab Interpretation (test code = Abnormal 97828-3) [facility] GLUCOSE (AUTOMATED)2022-01-06 22:44:50 Test Item Value Reference Range Interpretation Comments POCT GLU (test code = 1628981459) 198 mg/dL 70-110 H Lab Interpretation (test code = Abnormal 90565-7) [facility] GLUCOSE (AUTOMATED)2022-01-06 17:41:24 Test Item Value Reference Range Interpretation Comments POCT GLU (test code = 3357569436) 172 mg/dL 70-110 H Lab Interpretation (test code = Abnormal 09493-4) [facility] GLUCOSE (AUTOMATED)2022-01-06 13:48:08 Test Item Value Reference Range Interpretation Comments POCT GLU (test code = 0125648979) 175 mg/dL 70-110 H Lab Interpretation (test code = Abnormal 50824-2) [facility] METABOLIC PANEL (NA, K, CL, CO2, GLUCOSE, BUN, CREATININE, CA)2022-01-06 09:39:37 Test Item Value Reference Range Interpretation Comments NA (test code = 139 mmol/L 135-145 5820013879) K (test code = 3.6 mmol/L 3.5-5.0 3816241186) CL (test code = 104 mmol/L 98-108 6617596187) CO2 TOTAL (test code = 30 mmol/L 23-31 5771897067) AGAP (test code = 2-16 2058096865) BUN (test code = 15 mg/dL 7-23 7183776676) GLUCOSE (test code = 164 mg/dL 70-110 H 0787453002) CREATININE (test code = 0.83 mg/dL 0.50-1.04 9179574284) CALCIUM (test code = 7.9 mg/dL 8.6-10.6 L 8536542017) eGFR (test code = mL/min/1.73m2 2684912293) JENNIFFER (test code = JENNIFFER) Association of [...] tests). Lab Interpretation Abnormal (test code = 63142-0) [facility] 09:39:37 Test Item Value Reference Range Interpretation Comments MAGNESIUM (test code = 6588935980) 2.5 mg/dL 1.7-2.4 H Lab Interpretation (test code = Abnormal 95204-1) [facility] 09:39:37 Test Item Value Reference Range Interpretation Comments PHOSPHORUS (test code = 4549125063) 3.8 mg/dL 2.5-5.0 Lab Interpretation (test code = Normal 54668-3) [facility] WITH [id number] 09:29:28 Test Item Value Reference Range Interpretation [...] RDW-SD (test code = 46.7 fL 39.0-49.9 09617-8) RDW-CV (test code = 14.5 % 12.0-15.5 788-0) PLT (test code = See_Comment [Automated 777-3) message] The sy stem which generated this result transmitted reference range : 166 - 358 10*3/ ?L. The reference r josselyn was not used to interpret this result as normal/abnormal . MPV (test code = 8.9 fL 9.5-12.9 L 91018-1) NRBC/100 WBC (test See_Comment [Automat ed code = 1766973207) message] The system which generated this result transmitted reference range : 0.0 - 10.0 /100 WBCs. The refer ence range was not u sed to interpret th is result as normal/abnormal . NRBC x10^3 (test code <0.01 See_Comment [Auto mated = 5959890318) message] The s ystem which generated this result transmitted reference range : 10*3/?L. The reference range was not used to interpret this result as normal/abnormal . GRAN MAT (NEUT) % 74.7 % (test code = 770-8) IMM GRAN % (test code 0.30 % = 9621031283) LYMPH % (test code = 15.5 % 736-9) MONO % (test code = 5.5 % 5905-5) EOS % (test code = 3.3 % 713-8) BASO % (test code = 0.7 % 706-2) GRAN MAT x10^3(ANC) 4.34 10*3/uL 1.88-7.09 (test code = 4914821221) IMM GRAN x10^3 (test <0.03 0.00-0.06 code = 0382620126) LYMPH x10^3 (test code 0.90 10*3/uL 1.32-3.29 L = 731-0) MONO x10^3 (test code 0.32 10*3/uL 0.33-0.92 L = 742-7) EOS x10^3 (test code = 0.19 10*3/uL 0.03-0.39 711-2) BASO x10^3 (test code 0.04 10*3/uL 0.01-0.07 = 704-7) Lab Interpretation Abnormal (test code = 09197-3) [facility] GLUCOSE (AUTOMATED)2022-01-05 20:46:31 Test Item Value Reference Range Interpretation Comments POCT GLU (test code = 9833082953) 175 mg/dL 70-110 H Lab Interpretation (test code = Abnormal 64272-1) [facility] GLUCOSE (AUTOMATED)2022-01-05 17:13:26 Test Item Value Reference Range Interpretation Comments POCT GLU (test code = 5430745798) 233 mg/dL 70-110 H Lab Interpretation (test code = Abnormal 00733-9) [facility] GLUCOSE (AUTOMATED)2022-01-05 13:24:19 Test Item Value Reference Range Interpretation Comments POCT GLU (test code = 6327025629) 208 mg/dL 70-110 H Lab Interpretation (test code = Abnormal 16151-0) [facility] METABOLIC PANEL (NA, K, CL, CO2, GLUCOSE, BUN, CREATININE, CA)2022-01-05 09:23:42 Test Item Value Reference Range Interpretation Comments NA (test code = 139 mmol/L 135-145 2599654003) K (test code = 3.7 mmol/L 3.5-5.0 5823904641) CL (test code = 102 mmol/L 98-108 8082633426) CO2 TOTAL (test code = 31 mmol/L 23-31 9113831833) AGAP (test code = 2-16 7969238336) BUN (test code = 19 mg/dL 7-23 5945278141) GLUCOSE (test code = 166 mg/dL 70-110 H 4180142027) CREATININE (test code = 0.85 mg/dL 0.50-1.04 5423109726) CALCIUM (test code = 8.1 mg/dL 8.6-10.6 L 2472964440) eGFR (test code = mL/min/1.73m2 6956042163) JENNIFFER (test code = JENNIFFER) Association of [...] tests). Lab Interpretation Abnormal (test code = 32749-3) [facility] 09:23:42 Test Item Value Reference Range Interpretation Comments MAGNESIUM (test code = 6862175587) 2.3 mg/dL 1.7-2.4 Lab Interpretation (test code = Normal 88585-2) [facility] 09:23:42 Test Item Value Reference Range Interpretation Comments PHOSPHORUS (test code = 6258460625) 3.5 mg/dL 2.5-5.0 Lab Interpretation (test code = Normal 79706-7) [facility] [id number] 09:15:04 Test Item Value Reference Range Interpretation Comments WBC (test code = See_Comment [Automated 6690-2) message] The sy stem which generated this result transmitted reference range : 4.30 - 11.10 10*3/?L. The reference range was not used to interpret this result as normal/abnormal . RBC (test code = See_Comment L [Automated 539-8) message] The sy stem which generated this [...] RDW-SD (test code = 46.4 fL 39.0-49.9 12259-7) RDW-CV (test code = 14.4 % 12.0-15.5 788-0) PLT (test code = See_Comment [Automated 777-3) message] The sy stem which generated this result transmitted reference range : 166 - 358 10*3/ ?L. The reference r josselyn was not used to interpret this result as normal/abnormal . MPV (test code = 8.9 fL 9.5-12.9 L 06797-8) NRBC/100 WBC (test See_Comment [Automat ed code = 1050769438) message] The system which generated this result transmitted reference range : 0.0 - 10.0 /100 WBCs. The refer ence range was not u sed to interpret th is result as normal/abnormal . NRBC x10^3 (test code <0.01 See_Comment [Auto mated = 0444415427) message] The s ystem which generated this result transmitted reference range : 10*3/?L. The reference range was not used to interpret this result as normal/abnormal . GRAN MAT (NEUT) % 71.1 % (test code = 770-8) IMM GRAN % (test code 0.30 % = 1803436634) LYMPH % (test code = 17.7 % 736-9) MONO % (test code = 7.2 % 5905-5) EOS % (test code = 2.6 % 713-8) BASO % (test code = 1.1 % 706-2) GRAN MAT x10^3(ANC) 4.43 10*3/uL 1.88-7.09 (test code = 1713578901) IMM GRAN x10^3 (test <0.03 0.00-0.06 code = 0156771848) LYMPH x10^3 (test code 1.10 10*3/uL 1.32-3.29 L = 731-0) MONO x10^3 (test code 0.45 10*3/uL 0.33-0.92 = 742-7) EOS x10^3 (test code = 0.16 10*3/uL 0.03-0.39 711-2) BASO x10^3 (test code 0.07 10*3/uL 0.01-0.07 = 704-7) Lab Interpretation Abnormal (test code = 89567-6) [facility] GLUCOSE (AUTOMATED)2022-01-05 05:12:00 Test Item Value Reference Range Interpretation Comments POCT GLU (test code = 0862634247) 178 mg/dL 70-110 H Lab Interpretation (test code = Abnormal 35278-9) [facility] GLUCOSE (AUTOMATED)2022-01-04 22:12:41 Test Item Value Reference Range Interpretation Comments POCT GLU (test code = 3802249299) 154 mg/dL 70-110 H Lab Interpretation (test code = Abnormal 95714-5) [facility] GLUCOSE (AUTOMATED)2022-01-04 17:15:55 Test Item Value Reference Range Interpretation Comments POCT GLU (test code = 7740719649) 204 mg/dL 70-110 H Lab Interpretation (test code = Abnormal 13856-3) [facility] [id number] 13:56:02 Test Item Value Reference Range Interpretation Comments SPUTUM CULTURE 1+ Respiratory iveth: (test code = 622-1) Commensal upper respiratory microorganisms only. Gram stain (test No Epithelial cells code = 664-3) JENNIFFER (test code = Bacterial pathogens JENNIFFER) associated with lower respiratory infections were not identified, which include Pseudomonas aeruginosa and Staphylococcus aureus (MRSA or MSSA). [facility] - Please draw trough at [id number] 11:47:19 Test Item Value Reference Range Interpretation Comments VANCO TROUGH (test code 11.3 ug/mL 10.0-20.0 = 6756845029) JENNIFFER (test code = JENNIFFER) Toxic Range: ?>20 ug/mL 15-20 ug/mL is recommended for severe infection or when Vancomycin TORITO is greater than or equal to 2. Lab Interpretation (test Normal code = 77892-3) [facility] GLUCOSE (AUTOMATED)2022-01-04 11:19:57 Test Item Value Reference Range Interpretation Comments POCT GLU (test code = 8625203743) 189 mg/dL 70-110 H Lab Interpretation (test code = Abnormal 03880-6) [facility] (NA, K, CL, CO2, GLUCOSE, BUN, CREATININE, CA)2022-01-04 11:17:16 Test Item Value Reference Range Interpretation Comments NA (test code = 140 mmol/L 135-145 0518336392) K (test code = 3.3 mmol/L 3.5-5.0 L 4823959098) CL (test code = 99 mmol/L 98-108 2676380918) CO2 TOTAL (test code = 35 mmol/L 23-31 H 1054570035) AGAP (test code = 2-16 7666165604) BUN (test code = 18 mg/dL 7-23 4768328721) GLUCOSE (test code = 172 mg/dL 70-110 H 7436067348) CREATININE (test code = 0.89 mg/dL 0.50-1.04 5606914508) CALCIUM (test code = 8.2 mg/dL 8.6-10.6 L 3635728942) eGFR (test code = mL/min/1.73m2 0318975190) JENNIFFER (test code = JENNIFFER) Association of [...] tests). Lab Interpretation Abnormal (test code = 32139-6) [facility] 11:17:16 Test Item Value Reference Range Interpretation Comments MAGNESIUM (test code = 9155651112) 2.3 mg/dL 1.7-2.4 Lab Interpretation (test code = Normal 63379-3) [facility] 11:17:16 Test Item Value Reference Range Interpretation Comments PHOSPHORUS (test code = 8591037634) 2.7 mg/dL 2.5-5.0 Lab Interpretation (test code = Normal 53329-5) [facility] WITH [id number] 11:03:17 Test Item Value Reference Range Interpretation [...] RDW-SD (test code = 46.0 fL 39.0-49.9 29136-6) RDW-CV (test code = 14.4 % 12.0-15.5 788-0) PLT (test code = See_Comment [Automated 777-3) message] The sy stem which generated this result transmitted reference range : 166 - 358 10*3/ ?L. The reference r josselyn was not used to interpret this result as normal/abnormal . MPV (test code = 9.1 fL 9.5-12.9 L 18873-9) NRBC/100 WBC (test See_Comment [Automat ed code = 5520511550) message] The system which generated this result transmitted reference range : 0.0 - 10.0 /100 WBCs. The refer ence range was not u sed to interpret th is result as normal/abnormal . NRBC x10^3 (test code <0.01 See_Comment [Auto mated = 2754051725) message] The s ystem which generated this result transmitted reference range : 10*3/?L. The reference range was not used to interpret this result as normal/abnormal . GRAN MAT (NEUT) % 78.8 % (test code = 770-8) IMM GRAN % (test code 0.50 % = 8402851078) LYMPH % (test code = 11.8 % 736-9) MONO % (test code = 6.8 % 5905-5) EOS % (test code = 1.4 % 713-8) BASO % (test code = 0.7 % 706-2) GRAN MAT x10^3(ANC) 6.65 10*3/uL 1.88-7.09 (test code = 3128555609) IMM GRAN x10^3 (test 0.04 10*3/uL 0.00-0.06 code = 0695904880) LYMPH x10^3 (test code 1.00 10*3/uL 1.32-3.29 L = 731-0) MONO x10^3 (test code 0.57 10*3/uL 0.33-0.92 = 742-7) EOS x10^3 (test code = 0.12 10*3/uL 0.03-0.39 711-2) BASO x10^3 (test code 0.06 10*3/uL 0.01-0.07 = 704-7) Lab Interpretation Abnormal (test code = 53300-7) [facility] GLUCOSE (AUTOMATED)2022-01-04 06:29:40 Test Item Value Reference Range Interpretation Comments POCT GLU (test code = 9416901853) 211 mg/dL 70-110 H Lab Interpretation (test code = Abnormal 21167-8) [facility] GLUCOSE (AUTOMATED)2022-01-03 21:23:29 Test Item Value Reference Range Interpretation Comments POCT GLU (test code = 255 mg/dL 70-110 H Notifi ed Provider 0897477603) Lab Interpretation (test Abnormal code = 27314-9) [facility] GLUCOSE (AUTOMATED)2022-01-03 16:51:46 Test Item Value Reference Range Interpretation Comments POCT GLU (test code = 332 mg/dL 70-110 H Notifi ed Provider 0243358796) Lab Interpretation (test Abnormal code = 30361-2) [facility] 13:01:05 Test Item Value Reference Range Interpretation Comments POCT GLU (test code = 4191730798) 332 mg/dL 70-110 H Lab Interpretation (test code = Abnormal 55810-0) [facility] + Lactic [id number] 10:21:11 Test Item Value Reference Range Interpretation Comments PH (test code = 2) 7.35-7.45 PCO2 (test code = See_Comment H [Automate d 0950641710) message] The sy stem which generated this result transmitted reference range : 35 - 45 mmHg. The reference range was not used to interpret this result as normal/abnormal . PO2 (test code = See_Comment [Automated 7930007862) message] The sy stem which generated this result transmitted reference range : 80 - 100 mmHg. The reference range was not used to interpret this result as normal/abnormal . HCO3 (test code = See_Comment H [Automate d 2715776836) message] The sy stem which generated this result transmitted reference range : 22 - 26 mEq/L. The reference range was not used to interpret this result as normal/abnormal . BE (test code = See_Comment H [Automated 5685075661) message] The sy stem which generated this result transmitted reference range : -3.0 - 3.0 mEq/ L. The reference r josselyn was not used to interpret this result as normal/abnormal . THB (test code = 10.1 g/dL 12.0-16.0 L 3759078873) %O2HB (test code = 95.5 % 94.0-99.0 7720761198) %COHB ART (test code = 0.3 % 0.0-1.5 3013854713) %METHB ART (test code = 0.1 % 0.4-1.5 L 5855130107) VOL%O2 ART (test code = 13.7 % 15.0-23.0 L 2605848315) NA (test code = 138 mmol/L 135-145 9009846294) K+ (test code = 4.1 mmol/L 3.5-5.0 0352787395) AC CA IONZ (test code = 4.50 mg/dL 4.50-5.30 4609916120) GLUCOSE (test code = 325 mg/dL 70-110 H 2498449537) LACTIC ACID (test code 1.27 mmol/L 0.50-2.20 = 8960884519) Lab Interpretation Abnormal (test code = 03046-5) [facility] 10:18:30 Test Item Value Reference Range Interpretation Comments POCT GLU (test code = 3932967456) 338 mg/dL 70-110 H Lab Interpretation (test code = Abnormal 06780-8) [facility] METABOLIC PANEL (NA, K, CL, CO2, GLUCOSE, BUN, CREATININE, CA)2022-01-03 09:15:37 Test Item Value Reference Range Interpretation Comments NA (test code = 141 mmol/L 135-145 0896580541) K (test code = 4.3 mmol/L 3.5-5.0 7919177209) CL (test code = 103 mmol/L 98-108 1123838503) CO2 TOTAL (test code = 34 mmol/L 23-31 H 0732076260) AGAP (test code = 2-16 1942336560) BUN (test code = 19 mg/dL 7-23 2598296731) GLUCOSE (test code = 295 mg/dL 70-110 H 0790440368) CREATININE (test code = 0.80 mg/dL 0.50-1.04 1439960075) CALCIUM (test code = 7.9 mg/dL 8.6-10.6 L 8938828458) eGFR (test code = mL/min/1.73m2 8004837069) JENNIFFER (test code = JENNIFFER) Association of [...] tests). Lab Interpretation Abnormal (test code = 40561-2) [facility] 09:15:12 Test Item Value Reference Range Interpretation Comments MAGNESIUM (test code = 9194363003) 2.3 mg/dL 1.7-2.4 Lab Interpretation (test code = Normal 71455-7) [facility] WITH [id number] 09:02:53 Test Item Value Reference Range Interpretation Comments WBC (test code = See_Comment [Automated 4690-2) message] The sy stem which generated this result transmitted reference range : 4.30 - 11.10 10*3/?L. The reference range was not used to interpret this result as normal/abnormal . RBC (test code = See_Comment L [Automated 489-8) message] The sy stem which generated this [...] RDW-SD (test code = 46.8 fL 39.0-49.9 41850-3) RDW-CV (test code = 14.3 % 12.0-15.5 788-0) PLT (test code = See_Comment [Automated 777-3) message] The sy stem which generated this result transmitted reference range : 166 - 358 10*3/ ?L. The reference r josselyn was not used to interpret this result as normal/abnormal . MPV (test code = 9.1 fL 9.5-12.9 L 09967-8) NRBC/100 WBC (test See_Comment [Automat ed code = 2797226584) message] The system which generated this result transmitted reference range : 0.0 - 10.0 /100 WBCs. The refer ence range was not u sed to interpret th is result as normal/abnormal . NRBC x10^3 (test code <0.01 See_Comment [Auto mated = 7086866147) message] The s ystem which generated this result transmitted reference range : 10*3/?L. The reference range was not used to interpret this result as normal/abnormal . GRAN MAT (NEUT) % 86.9 % (test code = 770-8) IMM GRAN % (test code 0.50 % = 5139871823) LYMPH % (test code = 6.5 % 736-9) MONO % (test code = 5.2 % 5905-5) EOS % (test code = 0.6 % 713-8) BASO % (test code = 0.3 % 706-2) GRAN MAT x10^3(ANC) 8.30 10*3/uL 1.88-7.09 H (test code = 0605549604) IMM GRAN x10^3 (test 0.05 10*3/uL 0.00-0.06 code = 0851081355) LYMPH x10^3 (test code 0.62 10*3/uL 1.32-3.29 L = 731-0) MONO x10^3 (test code 0.50 10*3/uL 0.33-0.92 = 742-7) EOS x10^3 (test code = 0.06 10*3/uL 0.03-0.39 711-2) BASO x10^3 (test code 0.03 10*3/uL 0.01-0.07 = 704-7) Lab Interpretation Abnormal (test code = 72907-3) [facility] GLUCOSE (AUTOMATED)2022-01-03 04:48:55 Test Item Value Reference Range Interpretation Comments POCT GLU (test code = 6411575695) 258 mg/dL 70-110 H Lab Interpretation (test code = Abnormal 23954-2) [facility] GLUCOSE (AUTOMATED)2022-01-02 22:17:43 Test Item Value Reference Range Interpretation Comments POCT GLU (test code = 274 mg/dL 70-110 H Notifi ed Provider [id number]) Lab Interpretation (test Abnormal code = 72379-0) [facility] GLUCOSE (AUTOMATED)2022-01-02 16:29:06 Test Item Value Reference Range Interpretation Comments POCT GLU (test code = 321 mg/dL 70-110 H Notifi ed Provider [id number]) Lab Interpretation (test Abnormal code = 96119-0) [facility] 15:12:15 Test Item Value Reference Range Interpretation Comments HGB A1C (test code = 10.4 % 4.0-5.7 H 4548-4) JENNIFFER (test code = JENNIFFER) Reference RangesNormal: <5.7%Prediabetes: 5.7 - 6.4%Diabetes: > 6.5% Lab Interpretation (test Abnormal code = 19773-7) [facility] + Lactic [id number] 12:41:39 Test Item Value Reference Range Interpretation Comments PH (test code = 2) 7.35-7.45 L PCO2 (test code = See_Comment H [Automate d 5679990800) message] The sy stem which generated this result transmitted reference range : 35 - 45 mmHg. The reference range was not used to interpret this result as normal/abnormal . PO2 (test code = See_Comment H [Automated 9253661225) message] The sy stem which generated this result transmitted reference range : 80 - 100 mmHg. The reference range was not used to interpret this result as normal/abnormal . HCO3 (test code = See_Comment [Automate d 7755964370) message] The sy stem which generated this result transmitted reference range : 22 - 26 mEq/L. The reference range was not used to interpret this result as normal/abnormal . BE (test code = See_Comment [Automated 2412250528) message] The sy stem which generated this result transmitted reference range : -3.0 - 3.0 mEq/ L. The reference r josselyn was not used to interpret this result as normal/abnormal . THB (test code = 10.0 g/dL 12.0-16.0 L 0127371997) %O2HB (test code = 97.7 % 94.0-99.0 7970791567) %COHB ART (test code = 0.3 % 0.0-1.5 2911866228) %METHB ART (test code = 0.2 % 0.4-1.5 L 2107886836) VOL%O2 ART (test code = 14.0 % 15.0-23.0 L 0374367887) NA (test code = 137 mmol/L 135-145 7421656360) K+ (test code = 5.2 mmol/L 3.5-5.0 H 3433360716) AC CA IONZ (test code = 4.60 mg/dL 4.50-5.30 1117794144) GLUCOSE (test code = 306 mg/dL 70-110 H 7733997474) LACTIC ACID (test code 0.77 mmol/L 0.50-2.20 = 8210120889) Lab Interpretation Abnormal (test code = 35461-5) [facility] 12:28:29 Test Item Value Reference Range Interpretation Comments POCT GLU (test code = 362 mg/dL 70-110 H Notifi ed Provider 0822532587) Lab Interpretation (test Abnormal code = 05012-7) [facility] Metabolic Panel (NA, K, CL, CO2, Glucose, BUN, Creatinine, CA)2022-01-02 11:02:42 Test Item Value Reference Range Interpretation Comments NA (test code = 138 mmol/L 135-145 [id number]) K (test code = 5.3 mmol/L 3.5-5.0 H [id number]) CL (test code = 102 mmol/L 98-108 [id number]) CO2 TOTAL (test code = 29 mmol/L 23-31 [id number]) AGAP (test code = 2-16 9849405231) BUN (test code = 17 mg/dL 7-23 4969857430) GLUCOSE (test code = 343 mg/dL 70-110 H 3888464685) CREATININE (test code = 0.81 mg/dL 0.50-1.04 1591685168) CALCIUM (test code = 8.1 mg/dL 8.6-10.6 L 0350233421) eGFR (test code = mL/min/1.73m2 7162420307) JENNIFFER (test code = JENNIFFER) Association of [...] tests). Lab Interpretation Abnormal (test code = 61977-9) [facility] with Xzjcyqovyhss6011-16-38 10:52:23 Test Item Value Reference Range Interpretation [...] RDW-SD (test code = 49.3 fL 39.0-49.9 36329-2) RDW-CV (test code = 14.7 % 12.0-15.5 788-0) PLT (test code = See_Comment [Automated 777-3) message] The system which generated this result transmit alden reference range : 166 - 358 10*3/ ?L. The reference range was not u sed to interpret th is result as normal/abnormal . MPV (test code = 9.8 fL 9.5-12.9 21020-4) NRBC/100 WBC (test See_Comment [Automat ed code = 3828503192) message] The system which generated this result transmit alden reference range : 0.0 - 10.0 /100 WBCs. The reference range was not used to interpret this result as normal/abnormal . NRBC x10^3 (test code <0.01 See_Comment [Auto mated = 7976261112) message] The system which generated this result transmit alden reference range : 10*3/?L. The reference range was not used to interpret this result as normal/abnormal . GRAN MAT (NEUT) % 90.3 % (test code = 770-8) IMM GRAN % (test code 1.00 % = 4080277008) LYMPH % (test code = 4.0 % 736-9) MONO % (test code = 4.0 % 5905-5) EOS % (test code = 0.3 % 713-8) BASO % (test code = 0.4 % 706-2) GRAN MAT x10^3(ANC) 13.28 10*3/uL 1.88-7.09 H (test code = 0676741084) IMM GRAN x10^3 (test 0.15 10*3/uL 0.00-0.06 H code = 1333602307) LYMPH x10^3 (test code 0.59 10*3/uL 1.32-3.29 L = 731-0) MONO x10^3 (test code 0.59 10*3/uL 0.33-0.92 = 742-7) EOS x10^3 (test code = 0.04 10*3/uL 0.03-0.39 711-2) BASO x10^3 (test code 0.06 10*3/uL 0.01-0.07 = 704-7) Lab Interpretation Abnormal (test code = 77744-5) [facility] 10:20:11 Test Item Value Reference Range Interpretation Comments PH (test code = 2) 7.35-7.45 LL PCO2 (test code = See_Comment H [Automate d message] 9919880809) The system [employer] generated this result transmit alden reference range : 35 - 45 mmHg. The reference range was not used to interpret this result as normal/abnormal . PO2 (test code = See_Comment H [Automated message] 5457819911) The system [employer] generated this result transmit alden reference range : 80 - 100 mmHg. The reference range was not used to interpret this result as normal/abnormal . HCO3 (test code = See_Comment [Automate d message] 5883335106) The system [employer] generated this result transmit alden reference range : 22 - 26 mEq/L. The reference range was not used to interpret this result as normal/abnormal . BE (test code = See_Comment L [Automated message] 2849072223) The system [employer] generated this result transmit alden reference range : -3.0 - 3.0 mEq/ L. The reference r josselyn was not used to interpret this result as normal/abnormal . THB (test code = 10.9 g/dL 12.0-16.0 L 5027529252) %O2HB (test code = 97.4 % 94.0-99.0 1620434807) %COHB ART (test code = 0.3 % 0.0-1.5 4144415312) %METHB ART (test code = 0.1 % 0.4-1.5 L 7606256373) VOL%O2 ART (test code = 15.1 % 15.0-23.0 7874017746) NA (test code = 136 mmol/L 135-145 9751255161) K+ (test code = 5.5 mmol/L 3.5-5.0 H 5457081993) AC CA IONZ (test code = 4.70 mg/dL 4.50-5.30 2211504855) GLUCOSE (test code = 348 mg/dL 70-110 H 5433394283) Lab Interpretation Abnormal (test code = 14078-9) [id number]:01[facility]55 Test Item Value Reference Interpretation Comments Range TROPONIN I (test 0.001 ng/mL See_Comment [Automated code = 5725252788) message] The system which generated this result [...] biotin. Lab Interpretation Normal (test code = 51624-8) [id number] 02:58:58 Test Item Value Reference Range Interpretation Comments NT-proBNP (test code 183 pg/mL See_Comment H [Autom ated = 8892092943) message] The system which generated this result transmitted reference range : <=125. The reference range was not used to interpret this result as normal/abnormal . JENNIFFER (test code = JENNIFFER) Biotin has been reported to cause a negative bias, interpret results relative to patient's use of biotin. Lab Interpretation Abnormal (test code = 27042-7) [facility]. METABOLIC PANEL ([id number])2022-01-02 02:50:56 Test Item Value Reference Range Interpretation Comments NA (test code = 137 mmol/L 135-145 8445110091) K (test code = 4.6 mmol/L 3.5-5.0 4817911329) CL (test code = 103 mmol/L 98-108 5663900999) CO2 TOTAL (test code = 26 mmol/L 23-31 5736936861) AGAP (test code = 2-16 1549609084) BUN (test code = 20 mg/dL 7-23 9147460830) GLUCOSE (test code = 310 mg/dL 70-110 H 8652114956) CREATININE (test code = 1.14 mg/dL 0.50-1.04 H 6200815336) TOTAL BILI (test code = 0.3 mg/dL 0.1-1.9 1917379008) CALCIUM (test code = 8.1 mg/dL 8.6-10.6 L 4203244316) T PROTEIN (test code = 6.6 g/dL 6.3-8.2 3323755812) ALBUMIN (test code = 3.8 g/dL 3.5-5.0 9134697697) ALK PHOS (test code = 143 U/L 34-122 H 5075630064) ALTv (test code = 46 U/L 5-35 H 1742-6) AST(SGOT) (test code = 81 U/L 13-40 H 9178784143) eGFR (test code = mL/min/1.73m2 0342490344) JENNIFFER (test code = JENNIFFER) Association of [...] tests). Lab Interpretation Abnormal (test code = 62085-4) [facility] WITH [id number] 02:39:55 Test Item Value Reference Range Interpretation Comments WBC (test code = See_Comment H [Automated 9890-2) message] The system which generated this result transmit alden reference range : 4.30 - 11.10 10*3/?L. The reference range was not used to interpret this result as normal/abnormal . RBC (test code = See_Comment L [Automated 479-8) message] The system which generated this result [...] RDW-SD (test code = 49.2 fL 39.0-49.9 94996-8) RDW-CV (test code = 14.8 % 12.0-15.5 788-0) PLT (test code = See_Comment [Automated 777-3) message] The system which generated this result transmit alden reference range : 166 - 358 10*3/ ?L. The reference range was not u sed to interpret th is result as normal/abnormal . MPV (test code = 10.0 fL 9.5-12.9 66809-3) NRBC/100 WBC (test See_Comment [Automat ed code = 6468327163) message] The system which generated this result transmit alden reference range : 0.0 - 10.0 /100 WBCs. The reference range was not used to interpret this result as normal/abnormal . NRBC x10^3 (test code <0.01 See_Comment [Auto mated = 7928165474) message] The system which generated this result transmit alden reference range : 10*3/?L. The reference range was not used to interpret this result as normal/abnormal . GRAN MAT (NEUT) % 85.4 % (test code = 770-8) IMM GRAN % (test code 0.60 % = 5657728245) LYMPH % (test code = 6.4 % 736-9) MONO % (test code = 5.5 % 5905-5) EOS % (test code = 1.6 % 713-8) BASO % (test code = 0.5 % 706-2) GRAN MAT x10^3(ANC) 10.20 10*3/uL 1.88-7.09 H (test code = 5000672773) IMM GRAN x10^3 (test 0.07 10*3/uL 0.00-0.06 H code = 6015119030) LYMPH x10^3 (test code 0.76 10*3/uL 1.32-3.29 L = 731-0) MONO x10^3 (test code 0.66 10*3/uL 0.33-0.92 = 742-7) EOS x10^3 (test code = 0.19 10*3/uL 0.03-0.39 711-2) BASO x10^3 (test code 0.06 10*3/uL 0.01-0.07 = 704-7) Lab Interpretation Abnormal (test code = 70879-9) [facility] [id number] 04:57:10 Test Item Value Reference Interpretation Comments Range TROPONIN I (test 0.001 ng/mL See_Comment [Automated code = 2654755684) message] The system which generated this result [...] biotin. Lab Interpretation Normal (test code = 48052-1) [facility] [id number] 04:53:49 Test Item Value Reference Range Interpretation Comments NT-proBNP (test code 79 pg/mL See_Comment [Autom ated = 6997836156) message] The system which generated this result transmitted reference range : <=125. The reference range was not used to interpret this result as normal/abnormal . JENNIFFER (test code = JENNIFFER) Biotin has been reported to cause a negative bias, interpret results relative to patient's use of biotin. Lab Interpretation Normal (test code = 13885-0) [facility]. METABOLIC PANEL (44834)2021-12-09 04:46:26 Test Item Value Reference Range Interpretation Comments NA (test code = 138 mmol/L 135-145 6419188864) K (test code = 4.4 mmol/L 3.5-5.0 9014104306) CL (test code = 95 mmol/L 98-108 L 0605182758) CO2 TOTAL (test code = 35 mmol/L 23-31 H 4941726986) AGAP (test code = 2-16 0011417472) BUN (test code = 16 mg/dL 7-23 0454049303) GLUCOSE (test code = 276 mg/dL 70-110 H 0400709428) CREATININE (test code = 0.89 mg/dL 0.50-1.04 0725956427) TOTAL BILI (test code = 0.5 mg/dL 0.1-1.4 9611159676) CALCIUM (test code = 9.1 mg/dL 8.6-10.6 3135931517) T PROTEIN (test code = 7.0 g/dL 6.3-8.2 1446993132) ALBUMIN (test code = 4.2 g/dL 3.5-5.0 8386248974) ALK PHOS (test code = 141 U/L 34-122 H 6306662032) ALTv (test code = 65 U/L 5-35 H 1742-6) AST(SGOT) (test code = 81 U/L 13-40 H 2561171581) eGFR (test code = mL/min/1.73m2 9998490403) JENNIFFER (test code = JENNIFFER) Association of [...] tests). Lab Interpretation Abnormal (test code = 96847-3) [facility] 04:46:26 Test Item Value Reference Range Interpretation Comments LIPASE (test code = 4236978681) 82 U/L 0-220 Lab Interpretation (test code = Normal 81878-5) [facility] [id number] 04:27:44 Test Item Value Reference Range Interpretation Comments WBC (test code = See_Comment [Automated 3990-2) message] The sy stem which generated this result transmitted reference range : 4.30 - 11.10 10*3/?L. The reference range was not used to interpret this result as normal/abnormal . RBC (test code = See_Comment L [Automated 899-8) message] The sy stem which generated this [...] RDW-SD (test code = 46.9 fL 39.0-49.9 80708-4) RDW-CV (test code = 14.2 % 12.0-15.5 788-0) PLT (test code = See_Comment [Automated 777-3) message] The sy stem which generated this result transmitted reference range : 166 - 358 10*3/ ?L. The reference r josselyn was not used to interpret this result as normal/abnormal . MPV (test code = 9.0 fL 9.5-12.9 L 26947-6) NRBC/100 WBC (test See_Comment [Automat ed code = 7594771359) message] The system which generated this result transmitted reference range : 0.0 - 10.0 /100 WBCs. The refer ence range was not u sed to interpret th is result as normal/abnormal . NRBC x10^3 (test code <0.01 See_Comment [Auto mated = 8593053322) message] The s ystem which generated this result transmitted reference range : 10*3/?L. The reference range was not used to interpret this result as normal/abnormal . GRAN MAT (NEUT) % 79.4 % (test code = 770-8) IMM GRAN % (test code 0.60 % = 2541518433) LYMPH % (test code = 10.9 % 736-9) MONO % (test code = 5.7 % 5905-5) EOS % (test code = 2.7 % 713-8) BASO % (test code = 0.7 % 706-2) GRAN MAT x10^3(ANC) 7.19 10*3/uL 1.88-7.09 H (test code = 7419385068) IMM GRAN x10^3 (test 0.05 10*3/uL 0.00-0.06 code = 9129342177) LYMPH x10^3 (test code 0.99 10*3/uL 1.32-3.29 L = 731-0) MONO x10^3 (test code 0.52 10*3/uL 0.33-0.92 = 742-7) EOS x10^3 (test code = 0.24 10*3/uL 0.03-0.39 711-2) BASO x10^3 (test code 0.06 10*3/uL 0.01-0.07 = 704-7) Lab Interpretation Abnormal (test code = 81404-9) [facility] GLUCOSE (AUTOMATED)2021-09-23 17:25:54 Test Item Value Reference Range Interpretation Comments POCT GLU (test code = 4169071753) 234 mg/dL 70-110 H Lab Interpretation (test code = Abnormal 85876-8) [facility]2021-09-23 13:58:43 Test Item Value Reference Range Interpretation Comments POCT GLU (test code = 3462133858) 202 mg/dL 70-110 H Lab Interpretation (test code = Abnormal 82417-8) [facility] METABOLIC PANEL (NA, K, CL, CO2, GLUCOSE, BUN, CREATININE, CA)2021-09-23 11:51:27 Test Item Value Reference Range Interpretation Comments NA (test code = 139 mmol/L 135-145 4362904948) K (test code = 3.9 mmol/L 3.5-5.0 4372210386) CL (test code = 93 mmol/L 98-108 L 2014360802) CO2 TOTAL (test code = 40 mmol/L 23-31 H 3656489496) AGAP (test code = 2-16 1875563921) BUN (test code = 26 mg/dL 7-23 H 5854787424) GLUCOSE (test code = 223 mg/dL 70-110 H 3657310364) CREATININE (test code = 0.96 mg/dL 0.50-1.04 8096200885) CALCIUM (test code = 9.2 mg/dL 8.6-10.6 7470202219) eGFR (test code = mL/min/1.73m2 6476621973) JENNIFFER (test code = JENNIFFER) Association of [...] tests). Lab Interpretation Abnormal (test code = 15602-7) [facility] WITHOUT [id number] 10:53:54 Test Item Value Reference Range Interpretation Comments WBC (test code = 6690-2) See_Comment H [A utomated message] The system [employer] generated this result transmit alden reference range : 4.30 - 11.10 10*3/?L. The reference range was not used to interpret this result as normal/abnormal . RBC (test code = 789-8) See_Comment L [Au tomated message] The system [employer] generated this result transmit alden reference range [...] 777-3) See_Comment [Au tomated message] The system [employer] generated this result transmit alden reference range : 166 - 358 10*3/?L. The reference range was not used to interpret this result as normal/abnormal . MPV (test code = 9.2 fL 9.5-12.9 L 47256-8) RDW-CV (test code = 13.5 % 12.0-15.5 788-0) RDW-SD (test code = 44.3 fL 39.0-49.9 66964-1) NRBC x10^3 (test code = <0.01 See_Comment [Au tomated message] 4689831991) The system [employer] generated this result transmit alden reference range : 10*3/?L. The reference range was not used to interpret this result as normal/abnormal . NRBC/100 WBC (test code See_Comment [Au tomated message] = 4301484092) The system [employer] generated this result transmit alden reference range : 0.0 - 10.0 /100 WBC s. The reference r josselyn was not used to interpret this result as normal/abnormal . IPF % (test code = 1076269882) Lab Interpretation (test Abnormal code = 82355-9) [facility] GLUCOSE (AUTOMATED)2021-09-23 10:17:17 Test Item Value Reference Range Interpretation Comments POCT GLU (test code = 3951429412) 217 mg/dL 70-110 H Lab Interpretation (test code = Abnormal 03324-1) [facility] GLUCOSE (AUTOMATED)2021-09-23 05:44:27 Test Item Value Reference Range Interpretation Comments POCT GLU (test code = 8629141688) 338 mg/dL 70-110 H Lab Interpretation (test code = Abnormal 75858-3) [facility] GLUCOSE (AUTOMATED)2021-09-23 02:18:55 Test Item Value Reference Range Interpretation Comments POCT GLU (test code = 5640632081) 365 mg/dL 70-110 H Lab Interpretation (test code = Abnormal 49862-9) [facility]21-[facility]-23 00:11:44 Test Item Value Reference Range Interpretation Comments LVOT stroke volume (test 68.50 cm3 code = 2740775360) EF(Teich) (test code = 68.30 % 1525422650) LVIDD (test code = 4.00 cm 2696387738) LVIDS (test code = 2.49 cm 4814611691) IVS (test code = 1.07 cm 3302803928) LVPWD (test code = 1.08 cm 8015387718) LVOT diameter (test code 1.92 cm = 1813524441) FS (test code = 38 % 9278985677) MV Peak E Marva (test code 83.4 cm/s = 2063505587) MV Peak A Marva (test code 136.1 cm/s = 6468986030) E/A ratio (test code = ratio 6711406745) E wave decelartion time 0.16 s (test code = 0045532827) MV E/e' septal (test 7.1 cm/s code = 7158541412) LA Volume Index (BP) 21.8 mL/m2 (test code = 5124751619) LA volume (BP) (test 43.7 mL code = 2409609936) LVOT peak marva (test code 137.5 cm/s = 8500036739) LVOT mn grad (test code mmHg = 6152194990) LA size (test code = 3.9 cm 8956985791) LAV(MOD-sp2) (test code 43.50 mL = 9284381109) LAV(MOD-sp4) (test code 42.50 mL = 1831619583) Tapse (test code = 1.88 cm 0710791321) AV LVOT peak gradient mmHg (test code = 9528454359) LVOT peak VTI (test code 23.5 cm = 1301849794) LV V1 mean (test code = 92.90 cm/s 0329394174) MV Prop V (test code = 46.60 cm/s 4388764639) Ao root annulus (test 3.1 cm code = 7282680071) Ao root diam (test code 3.10 cm = 0624425172) Aortic root (test code = 3.1 cm 4609496712) PW (test code = 1.08 cm 0.6-1.0 8810116103) EF - 2D (test code = 68.30 % 54365712) Interventricular Septum 1.07 cm Diastolic Thickness by 2D (test code = 0905325) Radiology Study observation (narrative) (test code = 17551-1) JENNIFFER (test code = JENNIFFER) ?Left?Ventricle: Normal [...] (104.3 kg) 2.12 sq meters 118/66 96 [facility] GLUCOSE (AUTOMATED)2021-09-22 22:23:31 Test Item Value Reference Range Interpretation Comments POCT GLU (test code = 2364991892) 389 mg/dL 70-110 H Lab Interpretation (test code = Abnormal 84626-9) [facility] [id number] 21:48:25 Test Item Value Reference Range Interpretation Comments SPUTUM CULTURE (test Specimen cellular code = 622-1) elements do not represent lower respiratory tract. Specimen rejected for routine bacterial culture. Suggest reorder and recollection. [facility] GLUCOSE (AUTOMATED)2021-09-22 20:03:02 Test Item Value Reference Range Interpretation Comments POCT GLU (test code = 7986070190) 365 mg/dL 70-110 H Lab Interpretation (test code = Abnormal 37391-5) [facility] GLUCOSE (AUTOMATED)2021-09-22 18:09:08 Test Item Value Reference Range Interpretation Comments POCT GLU (test code = 1301560137) 361 mg/dL 70-110 H Lab Interpretation (test code = Abnormal 88804-3) [facility] GLUCOSE (AUTOMATED)2021-09-22 13:24:25 Test Item Value Reference Range Interpretation Comments POCT GLU (test code = 7215028374) 394 mg/dL 70-110 H Lab Interpretation (test code = Abnormal 80189-7) [facility] + LACTIC [id number] 13:21:48 Test Item Value Reference Range Interpretation Comments PH (test code = 2) 7.35-7.45 PCO2 (test code = See_Comment H [Automate d 4455321165) message] The sy stem which generated this result transmitted reference range : 35 - 45 mmHg. The reference range was not used to interpret this result as normal/abnormal . PO2 (test code = See_Comment L [Automated 5898756462) message] The sy stem which generated this result transmitted reference range : 80 - 100 mmHg. The reference range was not used to interpret this result as normal/abnormal . HCO3 (test code = See_Comment H [Automate d 1633036403) message] The sy stem which generated this result transmitted reference range : 22 - 26 mEq/L. The reference range was not used to interpret this result as normal/abnormal . BE (test code = See_Comment H [Automated 4999203997) message] The sy stem which generated this result transmitted reference range : -3.0 - 3.0 mEq/ L. The reference r josselyn was not used to interpret this result as normal/abnormal . THB (test code = 11.0 g/dL 12.0-16.0 L 6957937669) %O2HB (test code = 92.4 % 94.0-99.0 L 6074109928) %COHB ART (test code = 0.3 % 0.0-1.5 0512165778) %METHB ART (test code = 0.3 % 0.4-1.5 L 9346990605) VOL%O2 ART (test code = 14.3 % 15.0-23.0 L 3069468573) NA (test code = 138 mmol/L 135-145 8218104948) K+ (test code = 4.7 mmol/L 3.5-5.0 2140227779) AC CA IONZ (test code = 4.70 mg/dL 4.50-5.30 6504925761) GLUCOSE (test code = 401 mg/dL 70-110 H 6832346522) LACTIC ACID (test code 1.76 mmol/L 0.50-2.20 = 6102115539) Lab Interpretation Abnormal (test code = 02869-7) [facility] Metabolic Panel (NA, K, CL, CO2, Glucose, BUN, Creatinine, CA)2021-09-22 13:08:40 Test Item Value Reference Range Interpretation Comments NA (test code = 139 mmol/L 135-145 1871891202) K (test code = 4.9 mmol/L 3.5-5.0 6125761396) CL (test code = 93 mmol/L 98-108 L 0872608257) CO2 TOTAL (test code = 38 mmol/L 23-31 H 5911623761) AGAP (test code = 2-16 4065437377) BUN (test code = 19 mg/dL 7- 9347404531) GLUCOSE (test code = 393 mg/dL 70-110 H 5654522715) CREATININE (test code = 0.89 mg/dL 0.50-1.04 1364204109) CALCIUM (test code = 8.9 mg/dL 8.6-10.6 8834029116) eGFR (test code = mL/min/1.73m2 7155461882) JENNIFFER (test code = JENNIFFER) Association of [...] tests). Lab Interpretation Abnormal (test code = 26269-6) [id number] 13:00:02 Test Item Value Reference Range Interpretation Comments MAGNESIUM (test code = 3718331309) 2.1 mg/dL 1.7-2.4 Lab Interpretation (test code = Normal 79153-9) [facility]osph[facility] [id number] 13:00:02 Test Item Value Reference Range Interpretation Comments PHOSPHORUS (test code = 7726831479) 3.3 mg/dL 2.5-5.0 Lab Interpretation (test code = Normal 90259-2) [facility] (ALB, T.PRO, BILI T, BU/BC, ALT, AST, ALK, PHOS)2021-09-22 13:00:02 Test Item Value Reference Range Interpretation Comments TOTAL BILI (test code = 1165364454) 0.7 mg/dL 0.1-1.1 BILI UNCON (test code = 6187217180) 0.1 mg/dL 0.1-1.1 BILI CONJ (test code = 3815006167) 0.0 mg/dL 0.0-0.3 T PROTEIN (test code = 1802711892) 8.1 g/dL 6.3-8.2 ALBUMIN (test code = 9952853236) 4.2 g/dL 3.5-5.0 ALK PHOS (test code = 7443292016) 145 U/L 34-122 H ALTv (test code = 1742-6) 34 U/L 5-35 AST(SGOT) (test code = 1037136155) 46 U/L 13-40 H Lab Interpretation (test code = Abnormal 01410-2) [facility]th[facility] Time / [id number] 12:42:02 Test Item Value Reference Range Interpretation [...] tions. Lab Interpretation (test Normal code = 03561-2) [facility] with Idvcpktdfqky5447-90-49 12:35:41 Test Item Value Reference Range Interpretation [...] RDW-SD (test code = 45.0 fL 39.0-49.9 36362-1) RDW-CV (test code = 13.7 % 12.0-15.5 788-0) PLT (test code = See_Comment [Automated 777-3) message] The sy stem which generated this result transmitted reference range : 166 - 358 10*3/ ?L. The reference r josselyn was not used to interpret this result as normal/abnormal . MPV (test code = 9.0 fL 9.5-12.9 L 75870-2) NRBC/100 WBC (test See_Comment [Automat ed code = 5007336572) message] The system which generated this result transmitted reference range : 0.0 - 10.0 /100 WBCs. The refer ence range was not u sed to interpret th is result as normal/abnormal . NRBC x10^3 (test code <0.01 See_Comment [Auto mated = 9625637998) message] The s ystem which generated this result transmitted reference range : 10*3/?L. The reference range was not used to interpret this result as normal/abnormal . GRAN MAT (NEUT) % 93.7 % (test code = 770-8) IMM GRAN % (test code 0.90 % = 0370901669) LYMPH % (test code = 3.2 % 736-9) MONO % (test code = 1.1 % 5905-5) EOS % (test code = 0.5 % 713-8) BASO % (test code = 0.6 % 706-2) GRAN MAT x10^3(ANC) 9.27 10*3/uL 1.88-7.09 H (test code = 6365949766) IMM GRAN x10^3 (test 0.09 10*3/uL 0.00-0.06 H code = 4545482969) LYMPH x10^3 (test code 0.32 10*3/uL 1.32-3.29 L = 731-0) MONO x10^3 (test code 0.11 10*3/uL 0.33-0.92 L = 742-7) EOS x10^3 (test code = 0.05 10*3/uL 0.03-0.39 711-2) BASO x10^3 (test code 0.06 10*3/uL 0.01-0.07 = 704-7) Lab Interpretation Abnormal (test code = 61044-6) [facility]ATED [facility]GLOBIN (A1C)2021-09-22 12:16:03 Test Item Value Reference Range Interpretation Comments HGB A1C (test code = 6.4 % 4.0-5.7 H 4548-4) JENNIFFER (test code = JENNIFFER) Reference RangesNormal: <5.7%Prediabetes: 5.7 - 6.4%Diabetes: > 6.5% Lab Interpretation (test Abnormal code = 56140-1) [facility] [id number] Test Item Value Reference Interpretation Comments Range TROPONIN I (test <0.012 See_Comment [Automated code = [id number]) message] The system which generated this result [...] biotin. Lab Interpretation Normal (test code = 91811-0) [id number] 07:21:56 Test Item Value Reference Range Interpretation Comments NT-proBNP (test code 127 pg/mL See_Comment H [Autom ated = [id number]) message] The system which generated this result transmitted reference range : <=125. The reference range was not used to interpret this result as normal/abnormal . JENNIFFER (test code = JENNIFFER) Biotin has been reported to cause a negative bias, interpret results relative to patient's use of biotin. Lab Interpretation Abnormal (test code = 31345-8) [facility] (78921)2021-09-22 07:01:13 Test Item Value Reference Range Interpretation Comments NA (test code = 137 mmol/L 135-145 4679223769) K (test code = 4.9 mmol/L 3.5-5.0 8757611261) CL (test code = 96 mmol/L 98-108 L 0124972999) CO2 TOTAL (test code = 36 mmol/L 23-31 H 1743122577) AGAP (test code = 2-16 1858446110) BUN (test code = 18 mg/dL 7-23 0732588281) GLUCOSE (test code = 298 mg/dL 70-110 H 7827479820) CREATININE (test code = 0.73 mg/dL 0.50-1.04 8451641397) TOTAL BILI (test code = 0.6 mg/dL 0.1-1.8 7710387033) CALCIUM (test code = 8.5 mg/dL 8.6-10.6 L 6166062955) T PROTEIN (test code = 7.1 g/dL 6.3-8.2 6680170526) ALBUMIN (test code = 4.0 g/dL 3.5-5.0 3868499744) ALK PHOS (test code = 132 U/L 34-122 H 9554869705) ALTv (test code = 31 U/L 1742-6) AST(SGOT) (test code = 51 U/L 13-40 H 1714917366) eGFR (test code = mL/min/1.73m2 9077934936) JENNIFFER (test code = JENNIFFER) Association of [...] tests). Lab Interpretation Abnormal (test code = 57283-8) [facility] [id number] 06:54:12 Test Item Value Reference Range Interpretation Comments APTT Patient (test See_Comment [Automat ed code = 3173-2) message] The system which generated this result transmitted reference range : 23 - 38 Seconds . The reference range was not used to interpr et this result as normal/abnormal . JENNIFFER (test code = JENNIFFER) The [facility] patient population mean normal value for aPTT is 30 seconds. Lab Interpretation Normal (test code = 50526-4) [facility] / [id number] 06:52:12 Test Item Value Reference Range Interpretation [...] tions. Lab Interpretation (test Normal code = 61824-3) [facility] WITH [id number] 06:44:31 Test Item Value Reference Range Interpretation [...] RDW-SD (test code = 47.3 fL 39.0-49.9 48410-0) RDW-CV (test code = 13.8 % 12.0-15.5 788-0) PLT (test code = See_Comment [Automated 777-3) message] The sy stem which generated this result transmitted reference range : 166 - 358 10*3/ ?L. The reference r josselyn was not used to interpret this result as normal/abnormal . MPV (test code = 8.8 fL 9.5-12.9 L 51049-5) NRBC/100 WBC (test See_Comment [Automat ed code = 3336868656) message] The system which generated this result transmitted reference range : 0.0 - 10.0 /100 WBCs. The refer ence range was not u sed to interpret th is result as normal/abnormal . NRBC x10^3 (test code <0.01 See_Comment [Auto mated = 1018430908) message] The s ystem which generated this result transmitted reference range : 10*3/?L. The reference range was not used to interpret this result as normal/abnormal . GRAN MAT (NEUT) % 82.4 % (test code = 770-8) IMM GRAN % (test code 0.80 % = 2723934517) LYMPH % (test code = 8.0 % 736-9) MONO % (test code = 5.1 % 5905-5) EOS % (test code = 2.9 % 713-8) BASO % (test code = 0.8 % 706-2) GRAN MAT x10^3(ANC) 6.26 10*3/uL 1.88-7.09 (test code = 5236860948) IMM GRAN x10^3 (test 0.06 10*3/uL 0.00-0.06 code = 3135426388) LYMPH x10^3 (test code 0.61 10*3/uL 1.32-3.29 L = 731-0) MONO x10^3 (test code 0.39 10*3/uL 0.33-0.92 = 742-7) EOS x10^3 (test code = 0.22 10*3/uL 0.03-0.39 711-2) BASO x10^3 (test code 0.06 10*3/uL 0.01-0.07 = 704-7) Lab Interpretation Abnormal (test code = 86147-0) [facility]
[2022-09-27] MEDS ORDERED: LEVALBUTEROL 1.25 MG/3 ML NEB ONE (16:37)
[2022-09-27 16:59] LABS: Absolute Lymphocytes (CBC) 1.4 K/uL (0.7-4.9); Hematocrit 35.2 % (36.0-45.0); Lymphocytes % 11.4 % (15.3-44.8); MCV 87.2 fL (80-100); MPV 6.9 fL (7.6-11.3); RBC Red Blood Cell Count 4.04 M/uL (3.86-4.86)
--- NOTE | 2022-09-27 17:11 | RAD REPORT ---
EXAM DESCRIPTION: ALEJANDRONaila Single View09/27/2022 4:55 pm CLINICAL HISTORY: Shortness of breath COMPARISON: June 2022 FINDINGS: Tracheostomy tube in place Heart is probably upper limits normal size Calcified granuloma left lung Bibasilar lung opacities without significant change probably atelectasis
[2022-09-27 17:26] LABS: Albumin 3.7 g/dL (3.4-5.0); Bilirubin Total 0.5 mg/dL (0.2-1.0); Potassium 3.4 mmol/L (3.5-5.1); Protein, Total 7.6 g/dL (6.4-8.2)
[2022-09-27] MEDS ORDERED: METHYLPREDNISOLONE 125 MG INJ ONE (17:55)
[2022-09-27 18:01] LABS: Protime INR 0.89
[2022-09-27 18:01] LABS: Arterial Blood Carboxyhemoglob 2.4 % (0-1.5); Blood Gas Oxyhemoglobin 91.9 % (94-97); Blood O2 Saturation 95.1 % (92-98.5)
--- NOTE | 2022-09-27 18:23 | EDPHYS ---
Physician Documentation [facility] Name: Janie Erickson Age: 62 yrs Sex: Female : 1960 Arrival Date: 09/27/2022 Time: 16:03 Bed 15 Private MD: ED Physician Talha Moon HPI: 09/27 16:20 This 62 yrs old Female presents to ER via Wheelchair with complaints of Shortness Of cp Breath, Nausea. 16:20 The patient has shortness of breath at rest. Onset: The symptoms/episode began/occurred cp last night. Duration: The symptoms are continuous, and are steadily getting worse. The patient's shortness of breath is aggravated by light activity. Associated signs and symptoms: Pertinent negatives: chest pain, diaphoresis, fever, vomiting. Severity of symptoms: in the emergency department the symptoms are unchanged despite home interventions. The patient has experienced similar episodes in the past, chronically. Historical: - Allergies: 16:19 codeine sulfate; vg1 16:19 Sulfa (Sulfonamide Antibiotics); vg1 16:19 Ultram; vg1 - PMHx: 16:19 Chronic obstructive lung disease; Congestive heart failure; diabetes mellitus; vg1 - PSHx: 16:19 trach; vg1 - Immunization history:: Client reports having NOT received the Covid vaccine. - Social history:: Smoking status: Patient reports the use of cigarette tobacco products, denies chronic smoking, but will smoke occasionally. ROS: 16:25 Constitutional: Negative for body aches, chills, fever, poor PO intake. cp 16:25 Eyes: Negative for injury, pain, redness, and discharge. cp 16:25 ENT: Negative for drainage from ear(s), ear pain, sore throat, difficulty swallowing, difficulty handling secretions. 16:25 Cardiovascular: Negative for chest pain, edema, palpitations. 16:25 Respiratory: Positive for shortness of breath, at rest. 16:25 Abdomen/GI: Negative for abdominal pain, vomiting, diarrhea, constipation. 16:25 Back: Negative for pain at rest, pain with movement. 16:25 Skin: Negative for rash. 16:25 Neuro: Negative for altered mental status, headache, syncope, weakness. 16:25 All other systems are negative. Exam: 16:30 Constitutional: The patient appears in no acute distress, alert, awake, cp non-diaphoretic, non-toxic, well developed, well nourished, uncomfortable. 16:30 Head/Face: Normocephalic, atraumatic. cp 16:30 Eyes: Periorbital structures: appear normal, Conjunctiva: normal, no exudate, no injection, Sclera: no appreciated abnormality, Lids and lashes: appear normal, bilaterally. 16:30 ENT: External ear(s): are unremarkable, Nose: is normal, Mouth: Lips: moist, Oral mucosa: moist. 16:30 Neck: ROM/movement: is normal, is supple, without pain, no range of motions limitations, no meningismus, tracheostomy in place. 16:30 Chest/axilla: Inspection: normal. 16:30 Cardiovascular: Rate: tachycardic, Rhythm: regular, Edema: is not appreciated, JVD: is not appreciated. 16:30 Respiratory: the patient does not display signs of respiratory distress, Respirations: labored breathing, that is mild, Breath sounds: bronchial sounds, that are mild, are heard diffusely, stridor, is not appreciated, wheezing: is not appreciated. 16:30 Abdomen/GI: Inspection: abdomen appears normal, Palpation: abdomen is soft and non-tender, in all quadrants. 16:30 Back: pain, is absent, ROM is normal. 16:30 Neuro: Orientation: is normal, Mentation: is normal, Motor: moves all fours, strength is normal, Sensation: is normal. 16:42 ECG was reviewed by the Attending Physician. cp Vital Signs: 16:12 BP 142 / 78; Pulse 117; Resp 22; Temp 98.2; Pulse Ox 100% 6% ; Weight 96.62 kg; Height vg1 5 ft. 1 in. (154.94 cm); Pain 9/10; 19:15 BP 129 / 76; Pulse 108; Resp 17; Temp 98; Pulse Ox 98% 6 lpm ; Pain 9/10; pf1 20:00 BP 141 / 81; Pulse 107; Resp 17; Pulse Ox 96% 6 lpm ; pf1 21:00 BP 136 / 90; Pulse 105; Resp 20; Pulse Ox 98% 6 lpm ; pf1 22:00 BP 127 / 85; Pulse 105; Resp 20; Temp 98; Pulse Ox 98% 6 lpm ; pf1 16:12 Body Mass Index 40.25 (96.62 kg, 154.94 cm) vg1 16:12 Tracheostomy vg1 MDM: 16:21 Patient medically screened. cp 18:30 Data reviewed: vital signs, nurses notes, lab test result(s), EKG, radiologic studies, cp plain films. 18:30 Antibiotic administration: Levaquin ordered. Consideration of Admission/Observation cp Patient was admitted/placed on observation. Management of patient was discussed with the following: Hospitalist: Gideon King NP will admit patient after discussion. Historians other than the Patient: Spouse/Significant Other: provides HPI. Care significantly affected by the following chronic conditions: Diabetes, Congestive Heart Failure, Chronic Obstructive Pulmonary Disease, Obesity. Response to treatment: the patient's symptoms have mildly improved after treatment. 09/27 16:14 Order name: Blood Culture Adult (2) 09/27 16:14 Order name: CBC with Diff 09/27 16:14 Order name: CMP 09/27 16:14 Order name: Lactate w/ 2H reflex if indic. 09/27 16:14 Order name: Protime (+inr) 09/27 16:14 Order name: Ptt, Activated 09/27 16:14 Order name: Urine Culture 09/27 16:14 Order name: Urine Microscopic Only 09/27 16:14 Order name: Chest Single View XRAY 09/27 16:14 Order name: EKG; Complete Time: 16:16 09/27 16:14 Order name: Accucheck; Complete Time: 17:48 09/27 16:14 Order name: Cardiac monitoring; Complete Time: 16:31 09/27 16:14 Order name: EKG - Nurse/Tech; Complete Time: 16:31 09/27 16:14 Order name: IV Saline Lock - Large Bore; Complete Time: 17:02 09/27 16:14 Order name: Labs collected and sent; Complete Time: 17:01 09/27 16:14 Order name: O2 Per Protocol; Complete Time: 16:31 09/27 16:14 Order name: O2 Sat Monitoring; Complete Time: 16:31 09/27 16:14 Order name: Urine Dipstick-Ancillary (obtain specimen); Complete Time: 19:14 09/27 16:14 Order name: Vital Signs; Complete Time: 16:22 cp 03/ 17:11 Order name: RAD; Complete Time: 17:41 EDMS 09/27 17:28 Order name: CBC with Automated Diff; Complete Time: 17:41 EDMS 09/27 17:41 Interpretation: Normal except: WBC 12.20; HGB 11.4; HCT 35.2; RDW 16.3; MPV 6.9; RICHMOND% cp 82.3; LYM% 11.4; NEUT A 10.0. 09/27 17:28 Order name: Comprehensive Metabolic Panel; Complete Time: 17:41 EDMS 09/27 17:43 Interpretation: Normal except: K 3.4; CL 92; CO2 41; GLUC 329; CRE 1.35; GFR 45; AST cp 13; ALK 125; GLOB 3.9; A/G 0.9. 03 17:34 Order name: Lactate w/ 2H reflex if indic.; Complete Time: 17:41 EDMS 09/27 17:42 Interpretation: Reviewed. cp 03 17:42 Order name: ABG cp 09/27 17:43 Order name: COVID-19/FLU A+B/RSV cp 09/27 18:00 Order name: Glucose, Ancillary Testing; Complete Time: 18:01 EDMS 09/27 18:01 Order name: Protime (+INR); Complete Time: 18:01 EDMS 09/27 18:01 Order name: PTT, Activated Partial Thromb; Complete Time: 18:01 EDMS 05 18:04 Order name: CT Chest Wo Con cp 09/27 18:19 Order name: ABG Arterial Blood Gas; Complete Time: 18:52 EDMS 09/27 18:37 Order name: COVID-19/FLU A+B/RSV; Complete Time: 18:52 EDMS 09/27 18:41 Order name: Urine Dipstick-Ancillary; Complete Time: 18:52 EDMS 09/27 19:12 Order name: Urine Microscopic Only; Complete Time: 20:55 EDMS 09/27 19:21 Order name: CT; Complete Time: 20:55 EDMS EC:42 Rate is 116 beats/min. Rhythm is regular. CA interval is normal. QRS interval is cp normal. QT interval is normal. Interpreted by me. Reviewed by me. Administered Medications: 17:01 Drug: Xopenex (levalbuterol) (3) 1.25 mg Route: Inhalation; ll1 17:32 Follow up: Response: No adverse reaction ll1 17:49 Follow up: Response: No adverse reaction ll1 19:14 Follow up: Response: No adverse reaction ll1 17:59 Drug: SOLU-Medrol (methylPrednisoLONE) 125 mg Route: IVP; Site: left antecubital; ll1 19:00 Follow up: Response: No adverse reaction; Marked relief of symptoms pf1 18:36 Drug: LevaQUIN (levofloxacin) 750 mg Volume: 150 ml; Route: IVPB; Infused Over: 90 ll1 mins; Site: left antecubital; 20:05 Follow up: Response: No adverse reaction; IV Status: Completed infusion; IV Intake: pf1 150ml Disposition Summary: 09/27/22 18:22 Hospitalization Ordered Hospitalization Status: Inpatient Admission cp Provider: Gideon King cp Condition: Stable cp Problem: an acute exacerbation cp Symptoms: have improved cp Bed/Room Type: Standard cp Location: Intensive Care Unit(09/27/22 22:04) cg Room Assignment: 3-(09/27/22 22:04) cg Diagnosis - COPD/ Chronic obstructive pulmonary disease with (acute) exacerbation cp - Acute and chronic respiratory failure with hypercapnia cp Forms: - Medication Reconciliation Form cp - SBAR form cp Signatures: Dispatcher [employer] EDMS Gideon King, SNEHAL-C BALANCE CLERK-Cla1 Milton Muir PA PA cp Garcia, Cindy, RN RN cg Garcia, Victoria, RN RN vg1 Sregio Meeks RN RN ll1 Carolyn pedersen RN pf1 Corrections: (The following items were deleted from the chart) 22:04 18:22 Telemetry/MedSurg (Inpatient) cp cg 22:04 18:22 cp cg 09/28 01:57 01:56 ECG was reviewed by the Attending Physician. cp cp
--- NOTE | 2022-09-27 18:23 | ER ---
Nurse's Notes [facility] Name: Janie Erickson Age: 62 yrs Sex: Female : 1960 Arrival Date: 09/27/2022 Time: 16:03 Bed 15 Private MD: Diagnosis: COPD/ Chronic obstructive pulmonary disease with (acute) exacerbation;Acute and chronic respiratory failure with hypercapnia Presentation: 09/27 16:12 Chief complaint: Patient states: SOB began last night, also states lightheadedness and vg1 lower back pain. Pt stated SOB is worse when getting up to use the restroom. Pt is currently 100 % with 6 L via tracheostomy, initially pt was 89 % 8L after using the restroom. Coronavirus screen: Vaccine status: Patient reports being unvaccinated. Client denies travel out of the [place] in the last 14 days. Ebola Screen: Patient negative for fever greater than or equal to 101.5 degrees Fahrenheit, and additional compatible Ebola Virus Disease symptoms. Initial Sepsis Screen: Does the patient meet any 2 criteria? RR > 20 per min. HR > 90 bpm. Yes Does the patient have a suspected source of infection? No. Patient's initial sepsis screen is negative. Risk Assessment: Do you want to hurt yourself or someone else? Patient reports no desire to harm self or others. Onset of symptoms was September 26, 2022. 16:12 Method Of Arrival: Wheelchair vg1 16:12 Acuity: PAULINA 2 vg1 Triage Assessment: 16:19 General: Appears uncomfortable, Behavior is cooperative. Pain: Complains of pain in vg1 back Pain currently is 9 out of 10 on a pain scale. Pain began 1 day ago. Neuro: Level of Consciousness is awake, alert, obeys commands, Oriented to person, place, time, situation. Cardiovascular: Patient's skin is warm and dry. Respiratory: Reports shortness of breath on exertion cough that is productive, Onset: The symptoms/episode began/occurred yesterday, the patient has moderate shortness of breath. Historical: - Allergies: 16:19 codeine sulfate; vg1 16:19 Sulfa (Sulfonamide Antibiotics); vg1 16:19 Ultram; vg1 - PMHx: 16:19 Chronic obstructive lung disease; Congestive heart failure; diabetes mellitus; vg1 - PSHx: 16:19 trach; vg1 - Immunization history:: Client reports having NOT received the Covid vaccine. - Social history:: Smoking status: Patient reports the use of cigarette tobacco products, denies chronic smoking, but will smoke occasionally. Screenin:20 [facility] ED Fall Risk Assessment (Adult) Impaired Gait Yes (1 pt) Mobility Assist ll1 Device Used Yes (1 pt) Score/Fall Risk Level 0 - 2 = Low Risk Oriented to surroundings, Maintained a safe environment, Educated pt \T\ family on fall prevention, incl call for assistance when getting out of bed, Hourly rounding (assess needs \T\ fall precautionary measures) done. Abuse screen: Denies threats or abuse. Nutritional screening: No deficits noted. Tuberculosis screening: No symptoms or risk factors identified. Assessment: 16:30 Reassessment: No changes from previously documented assessment. Patient and/or family ll1 updated on plan of care and expected duration. Pain level reassessed. 17:05 Reassessment: No changes from previously documented assessment. Patient and/or family ll1 updated on plan of care and expected duration. Pain level reassessed. 17:49 Reassessment: No changes from previously documented assessment. Patient and/or family ll1 updated on plan of care and expected duration. Pain level reassessed. Patient is alert, oriented x 3, equal unlabored respirations, skin warm/dry/pink. 18:05 Reassessment: No changes from previously documented assessment. ll1 19:15 General: Appears in no apparent distress. comfortable, well groomed, well developed, pf1 Behavior is calm, cooperative, appropriate for age, quiet. 19:15 Pain: Complains of pain in back Pain currently is 9 out of 10 on a pain scale. Neuro: pf1 No deficits noted. Level of Consciousness is awake, alert, obeys commands, Oriented to person, place, time, situation. Neuro: Reports lightheadedness,onset last night. Cardiovascular: Capillary refill < 3 seconds Patient's skin is warm and dry. Respiratory: Reports shortness of breath on exertion Airway via trache Trachea midline Respiratory effort is even, unlabored, Respiratory pattern is regular, symmetrical, Breath sounds with crackles bilaterally. GI: No deficits noted. Abdomen is round non-distended, Bowel sounds present X 4 quads. Abd is soft and non tender X 4 quads. : No deficits noted. No signs and/or symptoms were reported regarding the genitourinary system. EENT: No deficits noted. No signs and/or symptoms were reported regarding the EENT system. Derm: No deficits noted. No signs and/or symptoms reported regarding the dermatologic system. 19:19 Reassessment: No changes from previously documented assessment. Patient and/or family ll1 updated on plan of care and expected duration. Pain level reassessed. Report given to OLIVE Story. 19:21 Cardiovascular: Rhythm is sinus tachycardia. Respiratory: Airway is patent Trachea ll1 midline Respiratory effort is labored, Breath sounds with crackles bilaterally. 20:00 Reassessment: Patient appears in no apparent distress at this time. Patient and/or pf1 family updated on plan of care and expected duration. Pain level reassessed. Patient is alert, oriented x 3, equal unlabored respirations, skin warm/dry/pink. 21:00 Reassessment: Patient appears in no apparent distress at this time. No changes from 1 previously documented assessment. Patient and/or family updated on plan of care and expected duration. Pain level reassessed. Patient is alert, oriented x 3, equal unlabored respirations, skin warm/dry/pink. Patient states feeling better. Patient states symptoms have improved. 22:00 Reassessment: Patient appears in no apparent distress at this time. Patient sleeping at pf1 this time, lights dimmed. Continue monitoring patient. Patient connected to cardiac monitoring and to personal ventilation system to trachea. 22:27 Reassessment: assist patient to commode.. pf1 Vital Signs: 16:12 BP 142 / 78; Pulse 117; Resp 22; Temp 98.2; Pulse Ox 100% 6% ; Weight 96.62 kg; Height vg1 5 ft. 1 in. (154.94 cm); Pain 9/10; 19:15 BP 129 / 76; Pulse 108; Resp 17; Temp 98; Pulse Ox 98% 6 lpm ; Pain 9/10; pf1 20:00 BP 141 / 81; Pulse 107; Resp 17; Pulse Ox 96% 6 lpm ; pf1 21:00 BP 136 / 90; Pulse 105; Resp 20; Pulse Ox 98% 6 lpm ; pf1 22:00 BP 127 / 85; Pulse 105; Resp 20; Temp 98; Pulse Ox 98% 6 lpm ; pf1 16:12 Body Mass Index 40.25 (96.62 kg, 154.94 cm) vg1 16:12 Tracheostomy vg1 ED Course: 16:03 Patient arrived in ED. am2 16:06 Milton Muir PA is PHCP. cp 16:06 Talha Moon MD is Attending Physician. cp 16:19 Triage completed. vg1 16:19 Arm band placed on. vg1 16:21 Sergio Meeks, OLIVE is Primary Nurse. ll1 16:22 Patient placed in an exam room, on a stretcher. ll1 17:02 Inserted saline lock: 22 gauge in left antecubital area, using aseptic technique. Blood ll1 collected. 17:32 Lactate w/ 2H reflex if indic. Sent. ll1 17:32 Blood Culture Adult (2) Sent. ll1 17:33 Notified Nurse Practitioner and/or Physician Line Crew Supervisor of a critical lab result(s), CO2 jl7 41. 17:59 COVID-19/FLU A+B/RSV Sent. ll1 17:59 ABG Sent. ll1 18:22 Gideon King FNP-C is Hospitalizing Provider. cp 19:14 Urine Microscopic Only Sent. ll1 19:20 Patient has correct armband on for positive identification. Bed in low position. Call ll1 light in reach. Side rails up X2. 22:30 No provider procedures requiring assistance completed. Patient admitted, IV remains in pf1 place. Administered Medications: 17:01 Drug: Xopenex (levalbuterol) (3) 1.25 mg Route: Inhalation; ll1 17:32 Follow up: Response: No adverse reaction ll1 17:49 Follow up: Response: No adverse reaction ll1 19:14 Follow up: Response: No adverse reaction ll1 17:59 Drug: SOLU-Medrol (methylPrednisoLONE) 125 mg Route: IVP; Site: left antecubital; ll1 19:00 Follow up: Response: No adverse reaction; Marked relief of symptoms pf1 18:36 Drug: LevaQUIN (levofloxacin) 750 mg Volume: 150 ml; Route: IVPB; Infused Over: 90 ll1 mins; Site: left antecubital; 20:05 Follow up: Response: No adverse reaction; IV Status: Completed infusion; IV Intake: pf1 150ml Medication: 19:21 VIS not applicable for this client. ll1 Intake: 20:05 IV: 150ml; Total: 150ml. pf1 Outcome: 18:22 Decision to Hospitalize by Provider. cp 22:41 Admitted to ICU accompanied by tech, via stretcher, room 3, with oxygen, with chart, pf1 Report called to Madelin 22:41 Condition: stable 22:41 Instructed on the need for admit, Demonstrated understanding of instructions. 23:04 Patient left the ED. pf1 Signatures: Milton Muir, Rowena Alex cp, RN RN jl7 Jordyn Jensen Victoria RN RN vg1 Sergio Meeks RN RN ll1 Carolyn pedersen RN RN pf1
[2022-09-27] MEDS ORDERED: Levofloxacin 750mg IV 750 MG/150 ML BAG IV ONE (18:28)
[2022-09-27] MEDS ORDERED: ONDANSETRON 4 MG/2 ML VIAL ONE (18:35)
[2022-09-27 18:37] LABS: SARS-COV-2 RT PCR NEGATIVE (NEGATIVE)
[2022-09-27 18:41] LABS: Urine Blood Negative (Negative); Urine Glucose 1+ (Negative); Urine Protein Negative (Negative); Urine pH 5.5 (5.0-7.0)
[2022-09-27 19:12] LABS: Urine Bacteria None Seen /HPF (<20); Urine Mucus Slight /HPF (None Seen); Urine RBC None Seen /HPF (None Seen)
--- NOTE | 2022-09-27 19:20 | RAD REPORT ---
EXAM DESCRIPTION: CT - Thorax Wo Con - 09/27/2022 7:04 pm CLINICAL HISTORY: sob COMPARISON: August 2022 and 2020 TECHNIQUE: Computed axial tomography of the chest was obtained. Contrast was not requested. All CT scans are performed using dose optimization technique as appropriate and may include automated exposure control or mA/KV adjustment according to patient size. FINDINGS: The evaluation of mediastinum, janae and vessels is limited secondary to lack of IV contras t administration. Mild tree-in-bud opacities right upper lobe. Calcified granuloma left lung Triangular right middle lobe opacity unchanged probably atelectasis. 11 millimeter nodule anterior mediastinum unchanged probably benign No mediastinal or hilar lymphadenopathy is seen. A pleural effusion is not present. No pericardial effusion. Tracheostomy tube is in place IMPRESSION: Mild tree-in-bud opacities right upper lobe may indicate a mild atypical infection or pn eumonitis
--- NOTE | 2022-09-27 20:58 | P.HP ---
Certification for Inpatient Patient admitted to: Inpatient With expected LOS: >2 Midnights Patient will require the following post-hospital care: None Practitioner: I am a practitioner with admitting privileges, knowledge of patient current condition, hospital course, and medical plan of care. Services: Services provided to patient in accordance with Admission requirements found in Title 42 Section 412.3 of the Code of Federal Regulations Patient History Date of Service: 09/27/22 Reason for admission: Respiratory failure, pneumonia History of Present Illness: 62-year-old female with chronic hypercapnic/hypoxic respiratory failure with trach in place for the last 7 years presents the emergency department for dyspnea, dyspnea with exertion. She does report some chills at home as well. She was recently admitted here on 09/10/2022 and subsequently discharged on Augmentin, prednisone with continuation of her home vent. She was evaluated in the emergency department today her labs were significant for leukocytosis white blood cell count 12.2 bicarb of 41 on her chemistry glucose 305 potassium 3.4 chloride 92 ABG was performed which revealed a pH of 7.35 PCO2 of 71.[address] of the chest without contrast was performed which revealed mild tree-in-bud opacities right upper lobe may indicate a mild atypical infection or pneumonitis. Patient was given IV Levaquin in the emergency department. ED provider wishes to admit for further evaluation and management of acute on chronic hypoxic/hypercapnic respiratory failure and pneumonia. Allergies codeine Allergy (Verified 09/10/22 05:19) Itching Sulfa (Sulfonamide Antibiotics) Allergy (Verified 04/21/14 07:51) Itching/Hives/Rash tramadol [From [facility]] Adverse Reaction (Verified 09/10/22 05:19) Nausea/Vomiting Home Medications: Cyclobenzaprine [Flexeril*] 10 mg PO TID 05/01/21 Famotidine 40 mg PO DAILY 05/01/21 Furosemide [Lasix*] 20 mg PO DAILY 05/01/21 Hydrocodone Bit/Acetaminophen [Hydrocodon-Acetaminophn 10-325] 1 tab PO Q6H PRN 05/01/21 Insulin Detemir [Levemir] 60 units SQ DAILY 05/01/21 Ipratropium/Albuterol Sulfate [Iprat-Albut 0.5-3(2.5) mg/3 ml] 3 ml NEB QID 05/01/21 Iron/FA/Vit B-Com W/C [Hemocyte Plus*] 1 tab PO BEDTIME 05/01/21 Levothyroxine [Synthroid*] 0.05 mg PO DAILY 05/01/21 Metformin HCl 500 mg PO BID 05/01/21 PARoxetine HCL [Paroxetine HCl] 40 mg PO DAILY 05/01/21 Pregabalin 300 mg PO BID 05/01/21 Quetiapine [Seroquel*] 50 mg PO BEDTIME 05/01/21 Spironolactone 25 mg PO DAILY 05/01/21 ondansetron HCL [Ondansetron HCl] 8 mg PO Q8H PRN 05/01/21 Fluticasone/Umeclidin/Vilanter [Trelegy Ellipta 100-62.5-25] 1 each IH DAILY 30 Days #30 aero 09/11/22 Amoxicillin/Potassium Clav [Augmentin 500-125 Tablet] 1 each PO TID #21 tab 09/12/22 predniSONE [Deltasone*] 10 mg PO BID #14 tab 09/12/22 - Past Medical/Surgical History Diabetic: Yes -: COPD -: CHF -: Insulin-dependent diabetes -: Home trach/vent 2/2 chronic hypercapnic respiratory failure -: Hypothyroidism -: Hyperlipidemia -: trach -: -: Hysterectomy -: Left knee surgery Psychosocial/ Personal History: Patient lives at home with family - Family History Father -: Cancer Brother -: Diabetes - Social History Alcohol use: No CD- Drugs: No Caffeine use: No Place of Residence: Home Review of Systems 10-point ROS is otherwise unremarkable Respiratory: Shortness of Breath, SOB with Excertion Physical Examination - Physical Exam General: Alert, In no apparent distress, Oriented x3, Other HEENT: Atraumatic, PERRLA, Mucous membr. moist/pink, EOMI, Sclerae nonicteric Neck: Supple, 2+ carotid pulse no bruit, No LAD, Other (Trach in place), Without JVD or thyroid abnormality Respiratory: Normal air movement, Diminished, Other (On home vent) Cardiovascular: No edema, Regular rate/rhythm, Normal S1 S2 Capillary refill: <2 Seconds Gastrointestinal: Normal bowel sounds, No tenderness Musculoskeletal: No tenderness Integumentary: No rashes Neurological: Normal speech, Normal strength at 5/5 x4 extr, Normal tone, Normal affect - Studies Laboratory Data (last 24 hrs) 09/27/22 16:45: PT 9.8, INR 0.89, APTT 30.5 09/27/22 16:45: Sodium 138, Potassium 3.4 L, BUN 16, Creatinine 1.35 H, Glucose 329 H, Total Bilirubin 0.5, AST 13 L, ALT 35, Alkaline Phosphatase 125 H 09/27/22 16:45: WBC 12.20 H, Hgb 11.4 L, Hct 35.2 L, Plt Count 217 Assessment and Plan - Plan Assessment: Acute on chronic hypoxic/hypercapnic respiratory failure 2/2 COPD with exacerbationon home vent with tracheostomy in place Sepsis secondary to atypical pneumonia Chronic diastolic congestive heart failure Diabetes mellitus type 2insulin-dependent with hyperglycemia Plan: Acute on chronic hypoxic/hypercapnic respiratory failure 2/2 COPD with exacerbationon home vent with tracheostomy in place Continue home vent, as needed nebulizer treatments, steroids. Pulmonology consult in place. Repeat ABG in the morning. Sepsis secondary to atypical pneumonia Continue Levaquin, blood cultures obtained. SIRS criteria were present including tachycardia, tachypnea, leukocytosis source of infection confirmed on CT chest without contrast which showed atypical pneumonia. Lactic acid less than 2 no hypotension or endorgan damage present. Chronic diastolic congestive heart failure Continue home medicationoral Lasix. No signs of overt overload at this time. Diabetes mellitus type 2insulin-dependent with hyperglycemia Continue sliding scale insulin, obtain A1c in the morning. Patient takes Levemir 60 units daily at home, will continue reduced dose long-acting insulin. Increase as needed. DVT PPX: Lovenox Code status: Full Discharge Plan: Home Plan to discharge in: 48 Hours - Advance Directives Does patient have a Living Will: No Does patient have a Durable POA for Healthcare: No - Code Status/Comfort Care Code Status Assessed: Yes (Full code) Critical Care: No Time Spent Managing Pts Care (In Minutes): 70
[2022-09-27] MEDS ORDERED: ONDANSETRON 4 MG/2 ML VIAL IV PRN (23:26)
[2022-09-27] MEDS ORDERED: ACETAMINOPHEN 500 MG TAB PO PRN (23:26)
[2022-09-27 23:47] VITALS: BMI 39.9
[2022-09-28] MEDS: PREGABALIN 150 MG CAP PO SCH ×3 (00:06→20:15)
[2022-09-28] MEDS: QUETIAPINE 25 MG TAB PO SCH ×2 (00:07→20:14)
[2022-09-28] MEDS: predniSONE 20 MG TAB PO SCH ×3 (00:07→20:15)
[2022-09-28] MEDS: INSULIN -REGULAR HUMAN 50 UNIT/0.5 ML ML SQ SCH ×5 (00:08→20:33)
[2022-09-28] MEDS ORDERED: INSULIN -REGULAR HUMAN 50 UNIT/0.5 ML ML IV ONE (00:10)
[2022-09-28] MEDS ORDERED: D50W 25 GM/50 ML SYRINGE IV PRN (00:10)
[2022-09-28] MEDS ORDERED: GLUCAGON 1 MG/VIAL IM PRN (00:10)
[2022-09-28] MEDS ORDERED: D10W 125 ML IV PRN (00:22)
[2022-09-28] MEDS ORDERED: hydrOXYzine HCL 25 MG TAB PO ONE (01:45)
[2022-09-28 05:09] LABS: Absolute Lymphocytes (CBC) 0.4 K/uL (0.7-4.9); Hematocrit 33.1 % (36.0-45.0); Lymphocytes % 3.2 % (15.3-44.8); MCV 87.9 fL (80-100); RBC Red Blood Cell Count 3.77 M/uL (3.86-4.86)
[2022-09-28 05:31] LABS: Albumin 3.2 g/dL (3.4-5.0); Basophilic Stippling 1+; Bilirubin Total 0.5 mg/dL (0.2-1.0); Blood Morphology Comment NOTED (NOT SEEN); Magnesium 2.1 mg/dL (1.6-2.4); Platelet Estimate ADEQ; Potassium 4.2 mmol/L (3.5-5.1)
[2022-09-28 06:26] LABS: Arterial Blood Carboxyhemoglob 1.6 % (0-1.5); Blood Gas Oxyhemoglobin 93.4 % (94-97); Blood O2 Saturation 96.1 % (92-98.5)
--- NOTE | 2022-09-28 07:11 | P.PN ---
Date of Service: 09/28/22 Subjective: ROS: 10 point ROS as noted above, otherwise negative Physical Exam: GEN: Alert, oriented, NAD, Trach in place HEENT: Atraumatic, PERRLA, Mucous membr. moist/pink, EOMI, Sclerae nonicteric CV: Regular rate and rhythm, no edema Pulm: Nonlabored respirations on room air, Diminished, Other (On home vent) ABD: Soft, nontender, nondistended MSK: No joint tenderness Integumentary: No rashes Neuro: Normal speech, normal affect Problem List: Acute on chronic hypoxic/hypercapnic respiratory failure 2/2 COPD with exacerbationon home vent with tracheostomy in place Sepsis secondary to atypical pneumonia Chronic diastolic congestive heart failure Diabetes mellitus type 2insulin-dependent with hyperglycemia Continue home vent Pulmonology Consult Repeat ABG this morning SIRS criteria present including tachyardia, tachypnea; chest CT shows Atypical pneumonia caused by leukocytosis Continue home medication as needed Continue sliding scale insulin VTE: Lovenox Code: Full Dispo: ~48 hours
[2022-09-28] MEDS: LEVOTHYROXINE SOD 0.05 MG TABLET PO SCH (07:39)
[2022-09-28] MEDS: FAMOTIDINE 20 MG TAB PO SCH (07:40)
[2022-09-28] MEDS: CYCLOBENZAPRINE 10 MG TAB PO SCH ×3 (07:40→20:14)
[2022-09-28] MEDS: METFORMIN HCL 500 MG TAB PO SCH ×2 (07:40→16:03)
[2022-09-28] MEDS: SPIRONOLACTONE 25 MG TABLET PO SCH (07:41)
[2022-09-28] MEDS: HYDROCODONE/APAP 10/325 TAB PO PRN ×3 (07:42→20:14)
[2022-09-28] MEDS: ENOXAPARIN 40 MG/0.4 ML SQ SCH (07:42)
[2022-09-28] MEDS: PARoxetine HCL 10 MG TAB PO SCH (07:42)
[2022-09-28] MEDS: INSULIN GLARGINE 100 UNIT/ML SQ SCH (08:33)
[2022-09-28] MEDS: acetaZOLAMIDE 250 MG TAB PO SCH (08:33)
[2022-09-28] MEDS: IPRATROPIUM BROM 0.5MG/2.5ML NEB SCH ×3 (08:35→20:30)
[2022-09-28] MEDS: ARFORMOTEROL TARTRATE 15 MCG/2 ML VIAL.NEB NEB SCH ×2 (08:35→20:30)
[2022-09-28] MEDS ORDERED: HOME MED 1 EA UNK (Fluticasone/Umeclidin/Vilanter [Trelegy Ellipta 100-62.5-25] Blst.W.Dev IH SCH (09:00)
[2022-09-28] MEDS ORDERED: FUROSEMIDE 20 MG TABLET PO SCH (09:00)
--- NOTE | 2022-09-28 12:11 | P.CNS ---
Date of Consult: 09/28/22 Reason for Consult: COPD exacerbation Chief Complaint: Respiratory failure, pneumonia History of Present Illness: Patient is 62 years of age was just recently discharged from the hospital admitted with acute onset of worsening shortness of breath she has a home ventilator at home also complaining of cough and congestion compliant with medication denies any fever or chills Allergies codeine Allergy (Verified 09/27/22 23:31) Itching Sulfa (Sulfonamide Antibiotics) Allergy (Verified 09/27/22 23:31) Itching/Hives/Rash tramadol [From [facility]] Adverse Reaction (Verified 09/27/22 23:31) Nausea/Vomiting Home Medications: Cyclobenzaprine [Flexeril*] 10 mg PO TID 05/01/21 Famotidine 40 mg PO DAILY 05/01/21 Furosemide [Lasix*] 20 mg PO DAILY 05/01/21 Hydrocodone Bit/Acetaminophen [Hydrocodon-Acetaminophn 10-325] 1 tab PO Q6H PRN 05/01/21 Insulin Detemir [Levemir] 60 units SQ DAILY 05/01/21 Ipratropium/Albuterol Sulfate [Iprat-Albut 0.5-3(2.5) mg/3 ml] 3 ml NEB QID 05/01/21 Iron/FA/Vit B-Com W/C [Hemocyte Plus*] 1 tab PO BEDTIME 05/01/21 Levothyroxine [Synthroid*] 0.05 mg PO DAILY 05/01/21 Metformin HCl 500 mg PO BID 05/01/21 PARoxetine HCL [Paroxetine HCl] 40 mg PO DAILY 05/01/21 Pregabalin 300 mg PO BID 05/01/21 Quetiapine [Seroquel*] 50 mg PO BEDTIME 05/01/21 Spironolactone 25 mg PO DAILY 05/01/21 ondansetron HCL [Ondansetron HCl] 8 mg PO Q8H PRN 05/01/21 Fluticasone/Umeclidin/Vilanter [Trelegy Ellipta 100-62.5-25] 1 each IH DAILY 30 Days #30 aero 09/11/22 - Past Medical/Surgical History Diabetic: Yes -: COPD -: CHF -: Insulin-dependent diabetes -: Home trach/vent 2/2 chronic hypercapnic respiratory failure -: Hypothyroidism -: Hyperlipidemia -: trach -: -: Hysterectomy -: Left knee surgery Psychosocial/ Personal History: Patient lives at home with family - Family History Father Medical History: Cancer Brother Medical History: Diabetes - Social History Smoking Status: Current some day smoker Alcohol use: No CD- Drugs: No Caffeine use: Yes Place of Residence: Home Review of Systems 10-point ROS is otherwise unremarkable General: Weakness Respiratory: Shortness of Breath Physical Examination Temp Pulse Resp BP Pulse Ox 97.6 F 90 19 100/63 100 09/28/22 08:28 09/28/22 11:00 09/28/22 11:00 09/28/22 11:00 09/28/22 11:00 General: Alert, Oriented x3, Mild distress Respiratory: Clear to auscultation bilaterally, Diminished Cardiovascular: No edema, Normal S1 S2 Gastrointestinal: Normal bowel sounds, Soft and benign Laboratory Data (last 24 hrs) 09/27/22 16:45: PT 9.8, INR 0.89, APTT 30.5 09/27/22 16:45: Sodium 138, Potassium 3.4 L, BUN 16, Creatinine 1.35 H, Glucose 329 H, Total Bilirubin 0.5, AST 13 L, ALT 35, Alkaline Phosphatase 125 H 09/27/22 16:45: WBC 12.20 H, Hgb 11.4 L, Hct 35.2 L, Plt Count 217 - Problems (1) Acute and chronic respiratory failure Current Visit: No Status: Acute Plan: Patient is 62 years of age admitted with acute respiratory distress she has a home ventilator severe COPD takes steroids on intermittent basis patient was also taking her trilogy at home chemistries reviewed renal function is improving patient's white count is mildly elevated chest x-ray shows some right middle lobe changes blood pressures are low patient is on IV levofloxacin we will check sputum culture saturation is normal Qualifiers: Respiratory failure complication: hypoxia and hypercapnia Qualified Code(s): J96.21 - Acute and chronic respiratory failure with hypoxia; J96.22 - Acute and chronic respiratory failure with hypercapnia; J96.22 - Acute and chronic respiratory failure with hypercapnia
[2022-09-28] MEDS: FLUTICASONE 50MCG NASAL SPRAY NAS SCH ×2 (13:31→20:15)
--- NOTE | 2022-09-28 16:39 | EKG ---
Test Date: 2022-09-27 Test Time: 16:37:26 Driller Helper: COOKIE MEASUREMENT RESULTS: Intervals: Rate: 116 VA: 154 QRSD: 80 QT: 326 QTc: 453 [place]: P: 78 VA: 154 QRS: 72 T: 75 INTERPRETIVE STATEMENTS: Sinus tachycardia Low voltage QRS Borderline ECG Compared to ECG 09/09/2022 23:28:04 Low QRS voltage now present Electronically Signed On 09-28-22 16:36:26 ENGRAVING OPERATOR by Tuan Wise
[2022-09-28] MEDS ORDERED: FE SULF/FA/VIT B COMP & C TAB PO SCH (21:00)
[2022-09-29] MEDS: IPRATROPIUM BROM 0.5MG/2.5ML NEB SCH ×2 (02:25→08:00)
[2022-09-29 04:05] VITALS: TEMP 97.2
[2022-09-29 04:49] LABS: Absolute Lymphocytes (CBC) 0.6 K/uL (0.7-4.9); Hematocrit 32.2 % (36.0-45.0); MCV 87.6 fL (80-100); MPV 7.2 fL (7.6-11.3); RBC Red Blood Cell Count 3.67 M/uL (3.86-4.86)
[2022-09-29 05:12] LABS: Bilirubin Total 0.4 mg/dL (0.2-1.0); Magnesium 2.2 mg/dL (1.6-2.4); Potassium 3.8 mmol/L (3.5-5.1); Protein, Total 6.4 g/dL (6.4-8.2)
[2022-09-29] MEDS: METFORMIN HCL 500 MG TAB PO SCH (07:33)
[2022-09-29] MEDS: LEVOTHYROXINE SOD 0.05 MG TABLET PO SCH ×2 (07:33→07:34)
[2022-09-29] MEDS: INSULIN -REGULAR HUMAN 50 UNIT/0.5 ML ML SQ SCH (07:33)
[2022-09-29] MEDS: CYCLOBENZAPRINE 10 MG TAB PO SCH (07:33)
[2022-09-29] MEDS: FLUTICASONE 50MCG NASAL SPRAY NAS SCH (07:34)
[2022-09-29] MEDS: SPIRONOLACTONE 25 MG TABLET PO SCH (07:34)
[2022-09-29] MEDS: acetaZOLAMIDE 250 MG TAB PO SCH (07:34)
[2022-09-29] MEDS: predniSONE 20 MG TAB PO SCH (07:34)
[2022-09-29] MEDS: ENOXAPARIN 40 MG/0.4 ML SQ SCH ×2 (07:35→07:44)
[2022-09-29] MEDS: PARoxetine HCL 10 MG TAB PO SCH (07:43)
[2022-09-29] MEDS: INSULIN GLARGINE 100 UNIT/ML SQ SCH (07:44)
[2022-09-29] MEDS: FAMOTIDINE 20 MG TAB PO SCH (07:45)
[2022-09-29] MEDS: ARFORMOTEROL TARTRATE 15 MCG/2 ML VIAL.NEB NEB SCH (08:00)
--- NOTE | 2022-09-29 08:04 | P.DS ---
Admission Date: 09/27/22 Discharge Date: 09/29/22 Disposition: ROUTINE DISCHARGE Reason for Admission: Respiratory failure, pneumonia - Problems (1) Acute and chronic respiratory failure Current Visit: No Status: Acute Qualifiers: Respiratory failure complication: hypoxia and hypercapnia Qualified Code(s): J96.21 - Acute and chronic respiratory failure with hypoxia; J96.22 - Acute and chronic respiratory failure with hypercapnia; J96.22 - Acute and chronic respiratory failure with hypercapnia Brief History of Present Illness: Patient is 62 years of age was just recently discharged from the hospital admitted with acute onset of worsening shortness of breath she has a home ventilator at home also complaining of cough and congestion compliant with medication denies any fever or chills Hospital Course: Patient is 62 years of age admitted with COPD exacerbation possible pneumonia he did well during the course of his stay darted on IV antibiotics cultures so far negative mild worsening of renal function improved with IV fluid White count borderline elevated at the time of discharge alert oriented responsive cooperative feeling a little better chest diminished air entry vital signs stable cardiovascular system heart sounds normal Patient to be discharged on Augmentin and low-dose prednisone 10 mg for 5 to 7 days have informed her to take 10 mg once or twice a day she has an exacerbation There may be an element of volume depletion BUN/creatinine are mildly elevated have advised her to use the Lasix as needed basis with spironolactone patient stable for discharge Vital Signs/Physical Exam: Temp Pulse Resp BP Pulse Ox 97.2 F 84 17 132/75 100 09/29/22 04:00 09/29/22 07:34 09/29/22 07:00 09/29/22 07:34 09/29/22 07:00 Laboratory Data at Discharge: WBC 13.00 K/uL (4.3-10.9) H 09/29/22 04:32 Hgb 10.6 g/dL (12.0-15.0) L 09/29/22 04:32 Hct 32.2 % (36.0-45.0) L 09/29/22 04:32 Plt Count 189 K/uL (152-406) 09/29/22 04:32 PT 9.8 SECONDS (9.5-12.5) 09/27/22 16:45 INR 0.89 09/27/22 16:45 APTT 30.5 SECONDS (24.3-36.9) 09/27/22 16:45 Sodium 136 mmol/L (136-145) 09/29/22 04:32 Potassium 3.8 mmol/L (3.5-5.1) 09/29/22 04:32 BUN 27 mg/dL (7-18) H 09/29/22 04:32 Creatinine 1.06 mg/dL (0.55-1.02) H 09/29/22 04:32 Glucose 235 mg/dL (74-106) H 09/29/22 04:32 Magnesium 2.2 mg/dL (1.6-2.4) 09/29/22 04:32 Total Bilirubin 0.4 mg/dL (0.2-1.0) 09/29/22 04:32 AST 6 U/L (15-37) L 09/29/22 04:32 ALT 25 U/L (13-56) 09/29/22 04:32 Alkaline Phosphatase 94 U/L (45-117) 09/29/22 04:32 Home Medications: Cyclobenzaprine [Flexeril*] 10 mg PO TID 05/01/21 Famotidine 40 mg PO DAILY 05/01/21 Furosemide [Lasix*] 20 mg PO DAILY 05/01/21 Hydrocodone Bit/Acetaminophen [Hydrocodon-Acetaminophn 10-325] 1 tab PO Q6H PRN 05/01/21 Insulin Detemir [Levemir] 60 units SQ DAILY 05/01/21 Ipratropium/Albuterol Sulfate [Iprat-Albut 0.5-3(2.5) mg/3 ml] 3 ml NEB QID 05/01/21 Iron/FA/Vit B-Com W/C [Hemocyte Plus*] 1 tab PO BEDTIME 05/01/21 Levothyroxine [Synthroid*] 0.05 mg PO DAILY 05/01/21 Metformin HCl 500 mg PO BID 05/01/21 PARoxetine HCL [Paroxetine HCl] 40 mg PO DAILY 05/01/21 Pregabalin 300 mg PO BID 05/01/21 Quetiapine [Seroquel*] 50 mg PO BEDTIME 05/01/21 Spironolactone 25 mg PO DAILY 05/01/21 ondansetron HCL [Ondansetron HCl] 8 mg PO Q8H PRN 05/01/21 Fluticasone/Umeclidin/Vilanter [Trelegy Ellipta 100-62.5-25] 1 each IH DAILY 30 Days #30 aero 09/11/22 Amox/Clavulanate [Augmentin 500-125 mg Tab] 500 mg PO TID 7 Days #21 tab 09/29/22 predniSONE [Deltasone*] 10 mg PO DAILY PRN 30 Days #30 tab 09/29/22 New Medications: Amox/Clavulanate [Augmentin 500-125 mg Tab] 500 mg PO TID 7 Days #21 tab predniSONE [Deltasone*] 10 mg PO DAILY PRN 30 Days #30 tab PRN Reason: COPD exacerbation Followup: Lynette Luna MD [Primary Care Provider] -
[2022-09-29] MEDS: PREGABALIN 150 MG CAP PO SCH (08:29)
[2022-09-29] MEDS ORDERED: HOME MED 1 EA UNK (Fluticasone/Umeclidin/Vilanter [Trelegy Ellipta 100-62.5-25] Blst.W.Dev IH SCH (09:00)
[2022-09-29 09:11] VITALS: BP 101/58; O2SAT 100
[2022-09-29] MEDS ORDERED: Levofloxacin 750mg IV 750 MG/150 ML BAG IV SCH (19:00)
== END 2022-09-29 09:35 | disposition home or self-care (01) | DRG 871 ==
LOC: ER 16:00 → ERHOLD 20:25 → 3RD-ICU 22:32
PROVIDERS: ADMIT Hospitalist; ATTEND Internal Medicine Sleep Medicine
PROC: 5A1945Z Respiratory Ventilation, 24-96 Consecutive Hours (ICD-10-PCS; principal; 2022-09-28)
DX: A41.9 Sepsis, unspecified organism (principal); J18.9 Pneumonia, unspecified organism; J96.22 Acute and chronic respiratory failure with hypercapnia; J96.21 Acute and chronic respiratory failure with hypoxia; Z68.41 Body mass index [BMI] 40.0-44.9, adult; J44.1 Chronic obstructive pulmonary disease with (acute) exacerbation; J44.0 Chronic obstructive pulmonary disease with (acute) lower respiratory infection; I50.32 Chronic diastolic (congestive) heart failure; E66.9 Obesity, unspecified; E11.65 Type 2 diabetes mellitus with hyperglycemia; E78.5 Hyperlipidemia, unspecified; E03.9 Hypothyroidism, unspecified; F17.210 Nicotine dependence, cigarettes, uncomplicated; Z93.0 Tracheostomy status; Z88.5 Allergy status to narcotic agent; Z88.1 Allergy status to other antibiotic agents; Z88.8 Allergy status to other drugs, medicaments and biological substances; Z79.4 Long term (current) use of insulin; Z79.84 Long term (current) use of oral hypoglycemic drugs; Z79.52 Long term (current) use of systemic steroids; Z79.899 Other long term (current) drug therapy; Z79.890 Hormone replacement therapy; Z28.310 Unvaccinated for COVID-19; Z90.710 Acquired absence of both cervix and uterus; Z20.822 Contact with and (suspected) exposure to COVID-19
CPT/HCPCS: 0241U; 36415; 71045; 71250; 80053; 81003; 81015; 82805; 82947; 83036; 83605; 83735; 85025; 85610; 85730; 87040; 87070; 87086; 87088; 87205; 93005; 94640; 96365; 96375; 99285; J1650; J1815; J2405; J2930; J7512; J7605; J7614; J7644

== ENCOUNTER 2022-11-22 14:59 | Emergency (ER) | payer OTHER ==
--- OUTSIDE RECORDS SUMMARY | 2022-11-22 15:23 | XMS REPORT | Continuity of Care Document ---
:1960 Author Organization [facility] t Address [address] [place] [address] [address] [place] [address] Care Team Providers Name Role Phone PCP, PATIENT DOES NOT HAVE A Primary Care Physician Unavaila ble JOSLYN RUELAS Attending Clinician Unavailable Joslyn Ruelas [...] Attending Clinician Sunshine Pelaez MD Attending Clinician [phone] VALERIANO PANTOJA Attending Clinician Unavailable Valeriano Pantoja MD Attending Clinician JONAS HERNANDEZ Attending Clinician Unavailable Layne Guallpa MD Attending Clinician SHAHLA DIAZ Attending Clinician Unavailable Janis Valencia MD Attending Clinician [phone] Cory Cee MD Attending Clinician DUKE VELAZQUEZ Attending Clinician Unavailable [facility] Attending Clinician Patria Brewer LVN Attending Clinician ENE GIVENS Attending Clinician Unavailable ENE GIVENS Attending Clinician Unavailable Ene Givens MD Attending Clinician Doctor Unassigned, Cyrus Attending Clinician Unavailable LAYNE GUALLPA Attending Clinician [...] Number Effective Date Expiration Date S anatoly ALEJANDRA YANETR FROM [id number] 2020 [facility] 00:00:00 [employer] [id number] 2022 OUT OF NETWORK 00:00:00 [facility] [id number] 2019 00:00:00 Problems Condition Condition Condition Status [...] ve urgency -11 it y of 00:00: [place] [facility] Chest pain Chest pain Disease Active U nivers 8 ity of 00:00: [place] [facility] Abdominal Abdominal Disease Active Uni vers pain pain 02-23 ity of 00:00: [place] [facility] Tracheomal Tracheomal Disease Active U nivers acia acia 02-22 ity of 00:00: [place] [facility] Tracheosto Tracheosto Disease Active U nivers my in my in [address] 00:00: [place] [facility] Dyspnea, Dyspnea, Disease Active Unive rs unspecifie unspecifie 7-29 it y of d type d type 00:00: [place] [facility] Acute Acute Disease Active [facility] respirator respirator 721 it y of y failure y failure 00:00: Katherine tobias with with 00 Medical hypoxia hypoxia Branch and and hypercapni hypercapni a a Elevated Elevated Disease Active Unive rs brain brain 7-06 ity of natriureti natriureti 00:00[place] c peptide c peptide 00 Medi michel (BNP) (BNP) Branch level level Anasarca Anasarca Disease Active Unive rs 7-05 ity of 00:00: [place] [facility] Acute Acute Disease Active 2016-07 Univers respirator respirator 1-09 it y of y failure y failure 00:00: [facility] Respirator Respirator Disease Active U [...] [place] y failure y failure 00 [facility] Branch Obesity Obesity Disease Active Univers (BMI (BMI 3-17 ity of 30-39.9) 30-39.9) 00:00: [place] 00 Medical Branch VAP VAP Disease Active Univers (ventilato (ventilato 5-08 it y of r-associat r-associat 00:00: [place] ed ed 00 Medical pneumonia) pneumonia) Br anch Acute Acute Disease Active Univers respirator respirator 5-08 it y of y failure y failure 00:00: Compadwight tobias with with Medical hypercapni hypercapni Br anch a a SOB SOB Disease Active Univers (shortness (shortness 1-10 it y of of breath) of breath) 00:00: [place] [facility] Hypoxia Hypoxia Disease Active Univers 9-24 ity of 00:00: [place] [facility] Hypercapni Hypercapni Disease Active U nivers c c 9-01 ity of respirator respirator 00:00: [place] y failure, y failure, 00 Me dical chronic chronic Branch Respirator Respirator Disease Active U nivers y failure y failure 8-16 ity of with with 00:00: [place] hypoxia hypoxia Medical Branch COPD COPD Disease Active Univers exacerbati exacerbati 7-28 it y of on on 00:00: [place] [facility] Respirator Respirator Disease Active U nivers y failure y failure 7-04 ity of with with 00:00: [place] hypoxia hypoxia Medical and and Branch hypercapni hypercapni a a Respirator Respirator Disease Active U nivers y failure y failure 6-09 ity of 00:00: [place] [facility] Hypotensio Hypotensio Disease Active U nivers n n 3-10 ity of 00:00: [place] [facility] COPD COPD Disease Active Univers (chronic (chronic 1-04 ity of obstructiv obstructiv 00:00: [place] e e 00 Medical pulmonary pulmonary Bran ch disease) disease) Allergies, Adverse Reactions, Alerts Allergy Allergy Status Severity Reaction(s) Onset Inactive Treating Comm ents Source Name Type Date Date Clinician CODEINE DRUG Active Unknown-Cmnt Uni vers INGREDI 02-16 ity of 00:00: Medical Branch TRAMADOL DRUG Active Unknown-Cmnt Un alexia INGREDI 02-16 ity of 00:00: [place] [facility] SERTRALI DRUG Active Unknown-Cmnt Un alexia NE INGREDI 02-16 ity of 00:00: Medical Branch CEFUROXI DRUG Active Unknown-Cmnt Un [...] 02-16 ity of adverse 00:00: [place] reaction Medical s Branch CIPROFLO DRUG Active Other-Cmnt Univ ers XACIN INGREDI 03-08 ity of HCL 00:00: Medical Branch Ciproflo Propensi Active Other - See Mouth U nivers xacin ty to comments 03-08 broke out ity o f Hcl adverse 00:00: in [place] reaction blisters, Medic al s but pt Branch thinks this was to sprite not actual medicatio n TIOTROPI DRUG Active Med Other-Cmnt Univ ers UM INGREDI 02-22 ity of BROMIDE 00:00: Medical Branch Tiotropi Propensi Active Other - See Makes U nivers um ty to comments 02-22 chela ity of [place] adverse 00:00: swell [place] reaction 00 Medical [...] Date Stop Date Quantity Comments Source History SDID University o f Alcohol Std Drinks [place] [facility] History [facility] o f Alcohol Binge [place] [facility] al Branch History SDOH Social Unive rsity of Connections [facility] Med ical Together Branch History SDOH Social Unive rsity of Connections [facility] Medical Branch History SDOH Social Unive rsity of Connections [place] [facility] Membership Branch History SDID Social Unive rsity of Connections [place] [facility] Meetings Branch History of tobacco Cigarette Smoker University of use [place] [facility] Exposure to 2022-08-30 2022-09-09 Not sure University of SARS-CoV-2 (event) 00:00:00 06:38:00 [place] [facility] History SDOH 2022-08-06 2022-08-06 1 University o f Alcohol Frequency 00:00:00 00:00:00 [place] M edical Branch History SDOH Social 2022-08-06 2022-08-06 5 Unive rsity of Connections Phone 00:00:00 00:00:00 [facility] edical Branch History SDOH Social 2022-08-06 2022-08-06 3 Unive rsity of Connections Living 00:00:00 00:00:00 [place] [facility] History SDOH 2022-08-06 2022-08-06 7 University o f Physical Activity 00:00:00 00:00:00 [place] [facility] edical DPW Branch History SDID 2022-08-06 2022-08-06 1 University o f Physical Activity 00:00:00 [facility]00:00 [facility] History SDID 2022-08-06 2022-08-06 5 University o f Financial 00:00:00 00:00:00 [place] [facility] History SDOH Food 2022-08-06 2022-08-06 1 Univers ity of Worry 00:00:00 00:00:00 [place] [facility] History SDOH Food 2022-08-06 2022-08-06 1 Univers ity of Scarcity 00:00:00 00:00:00 [place] [facility] History SDID 2022-08-06 2022-08-06 2 University o f Transport Med 00:00:00 00:00:00 [place] Medic al Branch History SDID 2022-08-06 2022-08-06 2 University o f Transport Non-Med 00:00:00 00:00:00 [facility] Branch Cigarettes smoked 2022-08-05 2022-08-05 Univers ity of current (pack per 00:00:00 00:00:00 [facility] day) - Reported Branch Cigarette 2022-08-05 2022-08-05 University of pack-years 00:00:00 00:00:00 [facility] Tobacco use and 2022-08-05 2022-08-05 Smokeless Universit y of exposure 00:00:00 00:00:00 tobacco non-user [facility] dical Branch Alcohol intake 2022-08-05 2022-08-05 Current University of 00:00:00 00:00:00 non-drinker of [facility] alcohol Branch (finding) Tobacco Comment 2022-02-12 2022-02-12 Pt trached Universit y of 00:00:00 00:00:00 [facility] Sex Ass[birth year] At [birth year] Universit y of 00:00:00 00:00:00 [facility] Smoking Status Start Date Stop Date Source Ex-smoker 2022-08-05 00:00:00 2022-08-05 00:00:00 Universi ty [facility] Smokes tobacco daily 2022-02-12 00:00:00 Univers ity [facility] Medications Ordered Filled Start Stop Current Ordering Indication Dosage Frequency Signature Comments Components Source Medication Medication Date Date Medication? Clinician (SIG) Name Name predniSONE 2022- Yes [id number] 50mg Take 5 Univers 10 mg 09-10 tablets by ity of tablet 00:00: 05:59 mouth in [place] 00 :00 the Medical [facility] Branch for 4 days. methylpredn 2022- No 125mg 125 mg, U nivers isolone sod 09-09 Slow IV ity of succ 14:00: 13:20 Push, ONCE [place] (SOLU-MEDRO 00 :00 NOW, 1 Medica l L) dose, On Branch injection Wed 125 mg 09/09/22 at 0800, CT albuterol 2022- No 5mg 5 mg, Univer s (PROVENTIL) 09-09 Inhalation i ty of 2.5 mg /3 14:00: 13:13 , ONCE, 1 [place] mL (0.083 00 :00 dose, On Medica l %) Wed [place] nebulizer 09/09/22 at solution 5 0800, CT mg predniSONE 2022- No [id number] Take 3 Univers 10 mg 08-11 06 tablets by ity of tablet 00:00: 05:59 mouth [place] 00 :00 daily for Medical 3 days, Branch THEN 2 tablets daily for 3 days, THEN 1 tablet daily for 3 days. predniSONE 2022- No [id number] Take 3 Univers 10 mg -17 08-21 [...] 0 Yes 1{ampul 1 Ampule Univers -albuterol 1-16 e} every 4 ity of 0.5 mg-3 17:04: (four) [place] mg(2.5 mg 37 hours as Medica l base)/3 mL needed for [facility] nebulizer Wheezing. solution dulaglutide Yes Trulicity U nivers (TRULICITY) 1-16 3 mg/0.5 ity of 3 mg/0.5 mL 17:04: mL [place] PnIj 37 subcutaneo Medical pen Branch injector metFORMIN 2022-0 Yes 750mg Take 750 Uni vers 500 mg 24 1-16 mg by ity of hr tablet 17:04: mouth [place] 37 daily with Medical breakfast. Branch spironolact 0 Yes 25mg Take 25 mg Univers one 25 mg 1-16 by mouth ity of tablet 17:04: in the [place] [address] morning. Medical Branch Levothyroxi 0 Yes 50ug Take 50 Uni vers ne 100 mcg 1-16 mcg by ity of capsule 17:04: mouth. [place] [address] Medical Branch famotidine 0 Yes 40mg Take 40 mg U nivers 40 mg 1-16 by mouth ity of tablet 17:04: in the [place] 37 morning. Medical Branch magnesium 2022-0 Yes 500mg Take 500 Uni vers gluconate 1-16 mg by ity of (MAG-G 17:04: mouth at [place] ORAL) 37 bedtime. Medical Branch montelukast 0 [...] 0 Yes 1{ampul 1 Ampule Univers -albuterol 1-16 e} every 4 ity of 0.5 mg-3 17:04: (four) [place] mg(2.5 mg 37 hours as Medica l base)/3 mL needed for [facility] nebulizer Wheezing. solution dulaglutide Yes Trulicity U nivers (TRULICITY) 1-16 3 mg/0.5 ity of 3 mg/0.5 mL 17:04: mL [place] PnIj 37 subcutaneo Medical pen Branch injector metFORMIN 2022-0 Yes 750mg Take 750 Uni vers 500 mg 24 1-16 mg by ity of hr tablet 17:04: mouth [place] 37 daily with Medical breakfast. Branch spironolact 0 Yes 25mg Take 25 mg Univers one 25 mg 1-16 by mouth ity of tablet 17:04: in the [place] [address] morning. Medical Branch Levothyroxi 2022-0 Yes 50ug Take 50 Uni vers ne 100 mcg 1-16 mcg by ity of capsule 17:04: mouth. [place] [address] Medical Branch famotidine 0 Yes 40mg Take 40 mg U nivers 40 mg 1-16 by mouth ity of tablet 17:04: in the [place] 37 morning. Medical Branch magnesium 2022-0 Yes 500mg Take 500 Uni vers gluconate 1-16 mg by ity of (MAG-G 17:04: mouth at [place] ORAL) 37 bedtime. Medical Branch montelukast 2022-0 [...] 0 Yes 1{ampul 1 Ampule Univers -albuterol 1-16 e} every 4 ity of 0.5 mg-3 17:04: (four) [place] mg(2.5 mg 37 hours as Medica l base)/3 mL needed for [facility] nebulizer Wheezing. solution dulaglutide 0 Yes Trulicity U nivers (TRULICITY) 1-16 3 mg/0.5 ity of 3 mg/0.5 mL 17:04: mL [place] PnIj 37 subcutaneo Medical pen Branch injector metFORMIN 0 Yes 750mg Take 750 Uni vers 500 mg 24 1-16 mg by ity of hr tablet 17:04: mouth [place] 37 daily with Medical breakfast. Branch spironolact 0 Yes 25mg Take 25 mg Univers one 25 mg 1-16 by mouth ity of tablet 17:04: in the [place] [address] morning. Medical Branch Levothyroxi 0 Yes 50ug Take 50 Uni vers ne 100 mcg 1-16 mcg by ity of capsule 17:04: mouth. [place] [address] Medical Branch famotidine 0 Yes 40mg Take 40 mg U nivers 40 mg 1-16 by mouth ity of tablet 17:04: in the [place] [address] morning. Medical Branch magnesium 0 Yes 500mg Take 500 Uni vers gluconate 1-16 mg by ity of (MAG-G 17:04: mouth at [place] ORAL) 37 bedtime. Medical Branch montelukast 0 Yes 10mg Take 10 mg Univers 10 mg 1-16 by mouth. ity of tablet 17:04: [place] 37 Medical Branch ondansetron 2022-0 2023- No 8mg Take 8 mg Univers 8 mg 1-16 01-16 by mouth ity of disintegrat 15:21: 00:00 every 8 [place] ing tablet 55 :00 (eight) Medica l hours as Branch needed for Nausea and Vomiting (N/V). ondansetron 3-0 2023- No 8mg Take 8 mg Univers (ZOFRAN) 8 16 -16 by mouth ity of mg tablet 15:21: [...] Nausea and Vomiting (N/V) hydrOXYzine 2023-0 Yes [id number] 10mg Take 1 Univers 10 mg 1-16 06 tablet by ity of tablet 00:00: mouth [place] 00 every 8 Medical (eight) Branch hours as needed for Anxiety. pregabalin 2023-0 Yes [id number] 300mg Take 1 Univers 300 mg 1-16 06 capsule by ity of capsule 00:00: mouth in [place] the Medical morning Branch and 1 capsule in the evening. hydrOXYzine 2023-0 Yes [id number] 10mg Take 1 Univers 10 mg 1-16 06 tablet by ity of tablet 00:00: mouth [place] 00 every 8 Medical (eight) Branch hours as needed for Anxiety. pregabalin 2023-0 Yes [id number] 300mg Take 1 Univers 300 mg 1-16 06 capsule by ity of capsule 00:00: mouth in [place] 00 the Medical morning Branch and 1 capsule in the evening. hydrOXYzine 2023-0 Yes [id number] 10mg Take 1 Univers 10 mg 1-16 06 tablet by ity of tablet 00:00: mouth [place] 00 every 8 Medical (eight) Branch hours as needed for Anxiety. pregabalin 2023-0 Yes [id number] 300mg Take 1 Univers 300 mg 16 [...] Until Discontinu ed, Routine sulfur 2022- No [id number] 5mL 5 mL, Unive rs hexafluorid 08-07 Intravenou i ty of e microsphr 17:00: 17:00 s, ONCE, 1 [place] (LUMASON) 00 :00 dose, On Medica l injection 5 Fri Branch mL 08/07/22 at 1100, Routine
philosophy faculty member approving Restricted medication : STELLA [...] 1 Branch dose, On Anayeli 08/06/22 at 1515, STAT midodrine 2022- No 10mg 10 mg, Unive rs (PROAMATINE 08-06 Oral, TID, i ty of ) tablet 10 20:15: 23:07 First dose [place] mg 00 :59 (after Medical last Branch reorder) on Anayeli 08/06/22 at 1415, Until Discontinu ed, CT iopamidol 2022- No [id number] 90mL 90 mL, Univers (ISOVUE 08-06 Intravenou ity o f 370-500 mL) 16:45: 17:00 s, ONCE, 1 [place] injection 00 :00 dose, On Medica l 90 mL [facility] Branch 08/06/22 at 1100, Routine insulin [...] 00 :00 1 dose, On Medical injection [facility] Branch 15 Units 08/05/22 at 2330, CT pregabalin 0 Yes 300mg 300 mg, Uni vers (LYRICA) 08-06 Oral, BID, ity o f capsule 300 04:45: First dose [place] mg 00 on [facility] Medical 08/05/22 at Branch 2245, Until Discontinu ed, Routine QUEtiapine 0 Yes 75mg 75 mg, Unive rs (SEROQUEL) 08-06 Oral, QHS, ity of tablet 75 04:45: First dose [place] mg 00 on [facility] Medical 08/05/22 at Branch 2245, Until Discontinu ed, Routine acetaminoph Yes 1000mg 1,000 mg, Univers en 08-06 Oral, ity of (TYLENOL) 04:40: BIDPRN, [place] tablet 20 Starting Medical 1,000 mg on [facility] Branch 08/05/22 at 2240, Until Discontinu ed, Routine, Pain (scale 1-3) ceFEPIme 0 2022- No 1000mg 1,000 mg, U nivers (MAXIPIME) 08-05 IV ity of 1,000 mg in 22:00: 21:59 Piggyback, [place] NaCl 0.9% 00 :00 Q8H ABX, Medica [...] Until Anayeli 08/06/22 at 1911, Routine furosemide 0 2022- No 20mg 20 mg, Univ ers (LASIX) 08-05 Slow IV ity of injection 15:45: 13:07 Push, [place] 20 mg 00 :38 DAILY, Medical First dose Branch on Wed08/05/22 at 0945, Until Discontinu ed, Routine Sliding 2022-0 Yes Subcutaneo Univ ers Scale 11 us, Q4H, ity of Insulin - 15:30: [...] tablet 10 00 on Wed Medical mg 1/11/23 at Branch 0145, Until Discontinu ed, Routine pantoprazol 2022- No 40mg 40 mg, Uni vers e 08-05 Slow IV ity of (PROTONIX) 07:45: 15:39 Push, [place] injection 00 :23 Q24H, Medical 40 mg First dose Branch on Wed08/05/22 at 0145, Until Discontinu ed metoprolol 2022- No 25mg 25 mg, Univ ers [...] Oral, ity of hen (NORCO) 07:38: Q8HPRN, [place]mopa as 10-325 mg 17 Starting Medica l tablet 1 on Wed Branch tablet 08/05/22 at 0138, Until Discontinu ed, Routine, Pain (scale 4-6) LORazepam 2022-0 Yes .5mg 0.5 mg, Unive rs (ATIVAN) 08-05 Slow IV ity of injection 07:35: Push, [place] 0.5 mg 04 TIDPRN, Medical Starting Branch on Wed08/05/22 at 0135, Until Discontinu ed, Routine, Anxiety budesonide Yes .5mg 0.5 mg, Univ ers (PULMICORT 08-05 Inhalation ity of RESPULE) 07:30: , BID, [place] nebulizer 00 First dose Medi michel solution on Wed Branch 0.5 mg 08/05/22 at 0130, Until Discontinu ed, Routine ipratropium Yes 3mL 3 mL, Unive rs -albuteroL 11 Inhalation ity of (DUONEB) 07:30: , Q4H, [place] 0.5 mg-3 00 First dose Medic al mg(2.5 mg on Wed Branch base)/3 mL 08/05/22 at nebulizer 0130, solution 3 Until mL Discontinu ed, Routine methylPREDN 2022- No 40mg 40 mg, Uni vers ISolone sod 11 01-12 Intravenou i ty of succ 07:30: 15:21 s, Q8H, [place] (SOLU-MEDRO 00 :13 First dose Me dical [...] IV ity of (D50W) 07:27: Push, PRN, [place] injection 58 Starting Medica l 25 mL on Wed Branch 08/05/22 at 0127, Until Discontinu ed, CT, Blood Glucose < or = 70 mg/dL and patient is unable to swallow or has mental status changes. methylpredn 2021-07 Yes 125mg 125 mg, Un alexia isolone sod 11 Intravenou it y of succ 06:00: s, Q6H, [place] (SOLU-MEDRO 00 First dose Me dical L) on Wed Branch injection 06/05/22 125 mg at 0000, Until Discontinu ed, Routine iopamidol 2021-07- No [id number] 75mL 75 mL, Univers (ISOVUE 019 10-19 Intravenou ity o f 370-500 mL) [...] 04/28/22 at 2315, STAT amoxicillin 2021-07 Yes [id number] 500mg Take 1 Univers -pot 0-05 tablet by ity of clavulanate 00:00: mouth [place] 500 mg 00 every 12 Medical 500-125 mg (twelve) Branc h tablet hours. amoxicillin 2021-07 Yes [id number] 500mg Take 1 Univers -pot 0-05 tablet by ity of clavulanate 00:00: mouth [place] 500 mg 00 every 12 Medical 500-125 mg (twelve) Branc h tablet hours. amoxicillin 2021-07 Yes [id number] 500mg Take 1 Univers -pot 0-05 tablet by ity of clavulanate 00:00: mouth [place] 500 mg 00 every 12 Medical 500-125 mg (twelve) Branc h tablet hours. amoxicillin 2021-07 Yes [id number] 500mg Take 1 Univers -pot 0-05 tablet by ity of clavulanate 00:00: mouth [place] 500 mg 00 every 12 Medical 500-125 mg (twelve) Branc h tablet hours. amoxicillin 2021-07- No [id number] 500mg Take 1 Univers -pot 0-05 01-16 tablet by ity of clavulanate 00:00: 00:00 [place] 500 mg 00 :00 every 12 Medical 500-125 mg (twelve) Branc h tablet hours. LORazepam 2021- No .5mg 0.5 mg, Univ ers (ATIVAN) 8- 08-05 Oral, ity of tablet 0.5 23:15: [...] as Medica l base)/3 mL needed for [facility] nebulizer Wheezing. solution dulaglutide Yes Trulicity U nivers (TRULICITY) 8-05 3 mg/0.5 ity of 3 mg/0.5 mL 17:58: mL [place] [facility]nIj [facility] pen Branch injector metFORMIN 0 Yes [...] Medica l base)/3 mL needed for [facility] nebulizer Wheezing. solution dulaglutide Yes Trulicity U nivers (TRULICITY) 8-05 3 mg/0.5 ity of 3 mg/0.5 mL 17:58: mL [place] PnIj [facility] pen Branch injector metFORMIN 0 Yes [...] Medica l base)/3 mL needed for [facility] nebulizer Wheezing. solution dulaglutide 0 Yes [...] as Medica l base)/3 mL needed for [facility] nebulizer Wheezing. solution dulaglutide Yes Trulicity U [...] mcg by ity of capsule 17:58: mouth. [place] [id number] Medical Branch HYDROcodone Yes 1{tbl} Take 1 [...] Medica l base)/3 mL needed for [facility] nebulizer Wheezing. solution dulaglutide Yes Trulicity U nivers (TRULICITY) 8-05 3 mg/0.5 ity of 3 mg/0.5 mL 17:58: mL [place] PnIj 14 subcutane Medical pen Branch injector metFORMIN 0 Yes 750mg Take 750 Uni vers 500 mg 24 8-05 mg by ity of hr tablet 17:58: mouth [place] [id number] daily with Medical breakfast. Branch spironolact 0 [...] mcg by ity of capsule 17:58: mouth. [place] [id number] Medical Branch HYDROcodone 0 Yes 1{tbl} Take [...] as Medica l base)/3 mL needed for [facility] nebulizer Wheezing. solution dulaglutide Yes Trulicity U nivers (TRULICITY) 8-05 3 mg/0.5 ity of 3 mg/0.5 mL 17:58: mL [place] PnIj 14 subcutaneo Medical pen Branch injector metFORMIN 0 Yes 750mg Take 750 Uni vers 500 mg 24 8-05 mg by ity of hr tablet 17:58: mouth [place] 14 daily with Medical breakfast. Branch spironolact Yes 25mg Take 25 mg Univers one 25 mg 8-05 by mouth ity of tablet 17:58: in the [place] 14 morning. Medical Branch ondansetron 0 Yes 8mg Take 8 mg U nivers 8 mg 8-05 by mouth ity of disintegrat 17:58: every 8 Compa as ing tablet 14 (eight) Medica l hours as Branch needed for Nausea and Vomiting (N/V). Levothyroxi Yes 50ug Take 50 Uni vers ne 100 mcg 8-05 mcg by ity of capsule 17:58: mouth. [place] 14 Medical Branch semaglutide 0 2022- No inject Uni vers (OZEMPIC) 8-05 08-05 under the ity of 0.25 mg or 15:36: 00:00 skin. [place] 0.5 mg(2 41 :00 Medical mg/1.5 mL) Branch PnIj famotidine 2021- No 40mg Take 40 mg Univers 40 mg 02-27 by mouth ity of tablet 15:36: 00:00 in the [place] 41 :00 morning. Medical Branch melatonin Yes [...] y of water 2 15:15: 15:42 Administer Copma as gram/50 mL 00 :00 over 60 [...] 500mL at 999 Unive rs ringers IV 02-24-03 mL/hr, 500 it y of infusion 17:30: 03:57 mL, [place] 500 mL 00 :22 Intravenou Medical s, ONCE, 1 Branch dose, On Wed02/24/22 at 1230, Routine lactated 2021- No 500mL at 999 Unive rs ringers IV 02-24- mL/hr, 500 it y of infusion 17:30: 18:42 mL, [place] 500 mL 00 :07 Intravenou Medical s, [...] s 5) 5-325 mg 00 Starting Medi mcihel tablet 1 on Wed tablet 02/24/22 at 0445, Until Discontinu ed, Routine, Pain (scale 7-10) ketorolac 2021- No 30mg 30 mg, Unive rs (TORADOL) 02-24 Slow IV ity of injection 09:45: 09:01 Push, [place] 30 mg 00 :00 ONCE, 1 Medical dose, On Branch Wed02/24/22 at 0445, Routine NORepinephr 2021- No .05ug/k 0.05-0.5 Univers ine 4 mg in 02-2403 g/min mcg/kg/min ity of 0.9% NaCl 04:27: [...] time.
lactated 2021- No 1000mL at 999 [facility] ers ringers IV 02-24 mL/hr, ity of infusion 03:15: 02:10 1,000 mL, Compa as 1,000 mL 00 :00 Intravenou Medic al s, ONCE, 1 Branch dose, On [facility] 02/23/22 at 2215, Routine sennosides Yes 8.6mg 8.6 mg, Uni vers (SENOKOT) 02-23 Oral, ity of tablet 8.6 22:45: DAILY, [place] mg 00 First dose Medical on Wed Branch 02/23/22 at 1745, Until Discontinu ed, Routine simethicone Yes 80mg 80 mg, [facility] ers (GAS RELIEF 02-23 Oral, ity of (SIMETHICON 14:00: PC+HS, [place] E)) 00 First dose Medical chewable on [facility] tablet 80 02/23/22 at mg 0900, Until Discontinu ed, Routine metoprolol No 25mg 25 mg, [facility] ers succinate 02-23 Oral, BID, ity of XL (TOPROL 13:00: 03:28 First dose [place] XL) tablet 00 :19 on [facility] Medical 25 mg 02/23/22 at Branch 0800, Until Discontinu ed, Routine melatonin 2021- No 6mg 6 mg, Univer s (MELATIN) 02-23 Oral, ONCE ity of tablet 6 mg 08:15: 07:18 NOW, 1 Compa as 00 :00 dose, On Medical [facility] 02/23/22 Branch at 0315, Routine hydrOXYzine 2021- No 10mg 10 mg, Uni vers (ATARAX) 02-23 Oral, ity of tablet 10 01:58: 03:43 Q8HPRN, [place] mg 32 :01 Starting Medical on [facility] 02/22/22 at 2058, Until [facility] 02/23/22 at 2243, Routine, Anxiety ondansetron 2021- No 4mg 4 mg, Slow Univers (ZOFRAN 02-23 IV Push, ity of (PF)) 00:15: 00:39 ONCE, On [place] injection 4 00 :00 [facility] mg [...] as mg 22 :05 Starting Medical on [place] Branch 02/22/22 at 1714, Until Wed02/24/22 at 0444, Routine, Anxiety pregabalin Yes 300mg 300 mg, Uni vers (LYRICA) 02-22 Oral, BID, ity o f capsule 300 19:30: First dose [place] mg 00 (after Medical last Branch modificati on) on [place] 02/22/22 at 1430, Until Discontinu ed, Routine trimethoben Yes 200mg 200 mg, Un alexia zamide 02-22 Intramuscu ity of (TIGAN) 17:45: lar, [place] injection 43 Q6HPRN, Medical 200 mg Starting Branch on [place] 02/22/22 at 1245, Until Discontinu ed, Routine, Nausea and Vomiting (N/V) levoFLOXaci 2021- No 750mg 750 mg, U nivers n 02-22 Oral, Q24H ity of (LEVAQUIN) 17:45: 18:17 ABX, 3 [place] tablet 750 00 :00 doses, Medical mg First dose Branch on 02/22/22 at 1245, Last dose on Wed02/24/22 [...] 1 last Branch tablet modificati on) on [place] 02/22/22 at 1200, Until Discontinu ed, Routine acetaminoph 2021- No 650mg 650 mg, U nivers en 02-22 0803 Oral, ity of (TYLENOL) 14:35: 08:19 Q6HPRN, [place] tablet 650 20 :38 Starting Medic al mg on [place] Branch 02/22/22 at 0935, Until 02/25/22 at 0319, Routine, Pain (scale 1-3) ceFEPIme No 2000mg 2,000 mg, U nivers (MAXIPIME) 02-22 IV ity of 2,000 mg in 13:15: 14:10 Piggyback, [place] NaCl 0.9% 00 :00 ONCE, 1 Medical (NS) 50 mL dose, On Branc h MINI-BAG [place] 02/22/22 at 0815, Administer over 30 Minutes, 50 mL
Reas on for Anti-Infec tive: Documented Infection< br>Documen alden Infection Site: Respirator y
Du ration of Therapy: 10 days acetaminoph No 500mg 500 mg, U nivers en 02-22 Oral, ONCE ity of (TYLENOL) 10:30: 09:34 NOW, 1 [place] tablet 500 00 :00 dose, On Medic al mg [facility] 02/22/22 at 0530, Routine HYDROcodone 2021-2021- No 1{tbl} 1 tablet, Univers -acetaminop 02-22 [...] [place] mg 00 First dose Medical on [facility] 02/21/22 at 0900, Until Discontinu ed, Routine aspirin Yes 81mg 81 mg, Univers chewable 02-21 Oral, ity of tablet 81 14:00: DAILY, [place] mg 00 First dose Medical on [facility] 02/21/22 at 0900, Until Discontinu ed, Routine spironolact 2021- No 25mg 25 mg, Uni vers one 02-21 Oral, ity of (ALDACTONE) 14:00: 03:59 DAILY, [place] tablet 25 00 :42 First dose Medi michel mg on [facility] 02/21/22 at 0900, Until Discontinu ed, Routine furosemide 2021- No 40mg 40 mg, Univ ers (LASIX) 02-21 0802 Oral, ity of tablet 40 14:00: 03:28 DAILY, [place] mg 00 :19 First dose Medical on [facility] 02/21/22 at 0900, Until Discontinu ed, Routine predniSONE No 40mg 40 mg, Univ ers (DELTASONE) 02-21 Oral, ity of tablet 40 14:00: 13:46 DAILY, [place] mg 00 :51 First dose Medical on [facility] 02/21/22 at 0900, Until Discontinu ed, Routine HYDROcodone 2021- No 1{tbl} 1 tablet, Univers -acetaminop 02-21 Oral, ity of hen (NORCO 12:00: 11:09 ONCE, 1 [place] 5) 5-325 mg 00 :00 dose, On Medi michel tablet 1 [facility] tablet 02/21/22 at 0700, Routine albuterol [...] No 4mL 4 mL, Univers chloride 7% 7-30 07-30 Inhalation i ty of (HYPER-BLESSING) 01:00: 22:40 [...] by ity of tablet 00:00: mouth in [place] [address] the Medical morning. Branch furosemide 2021-0 Yes 40mg Take 1 Unive rs 40 mg 7-27 tablet by ity of tablet 00:00: mouth in [place] [address] the Medical morning. Branch furosemide 2021-0 Yes 40mg Take 1 Unive rs 40 mg 7-27 tablet by ity of tablet 00:00: mouth in [place] [address] the Medical morning. Branch furosemide 2021-0 Yes 40mg Take 1 Unive rs 40 mg 7-27 tablet by ity of tablet 00:00: mouth in [place] [address] the Medical morning. Branch furosemide 2021-0 Yes 40mg Take 1 Unive rs 40 mg 7-27 tablet by ity of tablet 00:00: mouth in [place] 00 the Medical morning. Branch furosemide 2022-0 Yes 40mg Take 1 Unive rs 40 mg 7-27 tablet by ity of tablet 00:00: mouth in [place] 00 the Medical morning. Branch furosemide 2022-0 Yes 40mg Take 1 Unive rs 40 mg 7-27 tablet by ity of tablet 00:00: mouth in [place] 00 the Medical morning. Branch furosemide 2022-0 Yes 40mg Take 1 Unive rs 40 mg 7-27 tablet by ity of tablet 00:00: mouth in [place] 00 the Medical morning. Branch furosemide 2022-0 Yes 40mg Take 1 Unive rs 40 mg 7-27 tablet by ity of tablet 00:00: mouth in [place] 00 the Medical morning. Branch furosemide 2022-0 Yes 40mg Take 1 Unive rs 40 mg 7-27 tablet by ity of tablet 00:00: mouth in [place] 00 the Medical morning. Branch furosemide 2022-0 Yes 40mg Take 1 Unive rs 40 mg 7-27 tablet by ity of tablet 00:00: mouth in [place] 00 the Medical morning. Branch HYDROcodone 2021-0 [...] as Medica l base)/3 mL needed for [facility] nebulizer Wheezing. solution semaglutide 2021-0 Yes inject Univ ers (OZEMPIC) 7-26 under the ity o f 0.25 mg or 18:10: skin. [place] 0.5 mg(2 37 Medical mg/1.5 mL) Branch PnIj dulaglutide 0 Yes Trulicity U nivers (TRULICITY) 7-26 3 [...] and 25 mg in the evening. HYDROcodone 0 Yes 1{tbl} Take 1 Un [...] 0 Yes 1{ampul 1 Ampule Univers -albuterol 7-26 e} every 4 ity of 0.5 mg-3 18:10: (four) [place] mg(2.5 mg 37 hours as Medica l base)/3 mL needed for [facility] nebulizer Wheezing. solution semaglutide Yes inject Univ ers (OZEMPIC) 7-26 under the ity o f 0.25 mg or 18:10: skin. [place] 0.5 mg(2 37 Medical mg/1.5 mL) Branch PnIj dulaglutide 0 Yes Trulicity U nivers (TRULICITY) 7-26 3 [...] mouth ity of tablet 18:10: in the [place] [id number] morning Medical and 25 mg Branch at [...] ity of 2,000 mg in 03:30: Piggyback, [place] NaCl 0.9% 00 Q12H ABX, Medic al (NS) 50 mL First dose [facility] piggyback on Wed02/16/22 at 2230, Until Discontinu [...] SolR hours. Branch 2,000 mg NaCl 0.9% 202- No 2000mg Infuse Uni vers (NS) [...] ity of 2,000 mg in 15:30: 15:30 [place], [place] NaCl 0.9% 00 :00 ONCE, 1 Medical (NS) 50 mL dose, On Branc h piggyback [facility] 02/16/22 at 1030, Administer over 30 Minutes, 50 mL
Reas on for Anti-Infec tive: Documented Infection< br>Documen alden Infection Site: Respirator y
Du ration of Therapy: 7 days lidocaine 2021- No 5mL 5 mL, Univer s 1% (PF) 02-16 Subcutaneo ity o f (XYLOCAINE) 14:45: 22:45 , ONCE, [place] injection 5 00 :00 1 dose, On Me dical mL [facility] 02/16/22 at 0945, Routine NaCl 0.9% Yes 10mL 10 mL, Univer s (NS) 02-16 Slow IV ity of injection 14:36: Push, PRN, [place] 10 mL 37 Starting Medical on Wed [place] 02/16/22 at 0936, Until Discontinu ed, Routine, line maintenanc e furosemide 2021- No 40mg 40 mg, Univ ers (LASIX) 02-16 Oral, BID, ity o f tablet 40 01:00: 12:21 First dose [place] mg 00 :21 on [facility] 02/15/22 at Branch 2000, Until Discontinu [...] Subcutaneo ity of (human) 22:00: us, TID [place] (HumaLOG 00 MEALS, Medical U-100) First dose [...] D10W 10 % 2021- No at 30 [facility] s IV infusion 02-13 mL/hr, IV it y of 17:55: 22:35 Infusion, [place] 58 :45 TITRATE, Medical Starting Branch on Wed02/13/22 at 1255, Until Wed02/13/22 at 1735, Routine Sliding 2021- No Subcutaneo Uni vers Scale 02-13 07-23 , Q4H, ity of Insulin - 17:00: 17:59 First dose [place] lispro 00 :02 on Fri Medical (humaLOG) + 02/13/22 at Br anch Fsbg 1200, Testing Until Discontinu ed, Routine metoprolol Yes 25mg 25 mg, Univ rs succinate 02-13 Oral, ity of XL (TOPROL 14:00: DAILY, [place] XL) tablet 00 First dose Med ical 25 mg on Fri Branch 02/13/22 at 0900, Until [...] First dose [place] mg 00 on [facility] Medical 02/12/22 at Branch 2100, Until Discontinu ed, Routine rosuvastati Yes 10mg 10 mg, Univ ers n (CRESTOR) 02-13 Oral, QHS, it y of tablet 10 02:00: First dose [place] mg 00 on [facility] 02/12/22 at Branch 2100, Until Discontinu ed, Routine pregabalin 2021- No 300mg 300 mg, Un alexia (LYRICA) 02-13 Oral, QHS, ity of capsule 300 02:00: 13:54 First dose [place] mg 00 :07 on [facility] 02/12/22 at Branch 2100, Until Discontinu ed, Routine furosemide 2021- No 20mg 20 mg, Univ ers (LASIX) 02-13 07-24 Slow IV ity of injection 01:00: 19:35 Push, [place] 20 mg 00 :20 Q12H, Medical First dose Branch on [facility] 02/12/22 at 2000, Until Discontinu ed, [...] IV Push, ity of (PF)) 21:36: Q6HPRN, [place] injection 4 19 Nausea and Me dical mg Vomiting Branch (N/V), Starting on [place] 02/12/22 at 1636
Do ses of ondansetro n 16 mg and above need to be administer ed via IV piggyback. For Dose >=24mg ECG monitoring is advisable.
ipratropium Yes 3mL 3 mL, Unive rs -albuteroL 02-12 Inhalation ity of (DUONEB) 19:00: , Q6H, [place] 0.5 mg-3 00 First dose Medic al mg(2.5 mg on [facility] Branch base)/3 mL 02/12/22 at nebulizer 1400, solution 3 Until mL Discontinu ed, Routine piperacilli 2021-2021- No 3.375g 3.375 g, Univers n-tazobacta 02-12 IV ity of m (ZOSYN) 15:30: 17:12 [place]gyback, [place] 3.375 g in 00 :00 ONCE, 1 Medica l NaCl 0.9% dose, On Branch (NS) 50 mL [facility] MINI-BAG 02/12/22 at 1030, Administer over [...] ity of 1,000 mg in 09:15: 14:35 [place], [place] NaCl 0.9% 00 :41 Q24H ABX, Medic al (NS) 50 mL First dose [facility] MINI-BAG on [place] 02/12/22 at 0415, [...] (0.083 01 Starting Medica l %) on [facility] Branch nebulizer 02/12/22 at solution 0345, 2.5 mg Until Discontinu ed, Routine, Shortness of Breath, Wheezing NaCl 0.45% 2021- No 1000mL Univ ers (1/2NS) 02-12 ity of 1000 mL + 08:15: 22:29 [place] KCL 20 mEq 00 :30 [facility] Branch azithromyci 2021- No 500mg 500 mg, [...] CT insulin 2021- No 10U 10 Units, [place] [facility] ers regular 02-12 Slow IV ity of human 03:15: 04:13 Push, [place] (HUMULIN R) 00 :00 ONCE, 1 Medic al injection dose, On Branch 10 Units [facility] 02/11/22 at 2215, STAT iopamidol 2021- No [id number] 60mL 60 mL, Univers (ISOVUE 02-12 Intravenou ity o f 370-500 mL) 02:30: 02:30 s, ONCE, 1 [place] injection 00 :00 dose, On Medica l 60 mL Wed [place] 02/11/22 at 2145, Routine predniSONE 2021-0 Yes [id number] 50mg Take 1 Univers 50 mg 7-10 00 tablet by ity of tablet 00:00: mouth [place] 00 daily. Medical Branch aspirin 81 2021-0 Yes [id number] 81mg Take 1 Univers mg chewable 7-10 00 tablet by ity of tablet 00:00: mouth [place] 00 daily with Medical breakfast. Branch predniSONE 2021-0 Yes [id number] 50mg Take 1 Univers 50 mg 7-10 00 tablet by ity of tablet 00:00: mouth [place] 00 daily. Medical Branch aspirin 81 0 Yes [id number] 81mg Take 1 Univers mg chewable 7-10 00 tablet by ity of tablet 00:00: mouth [place] 00 daily with Medical breakfast. Branch aspirin 81 0 Yes [id number] 81mg Take 1 Univers mg chewable 7-10 00 tablet by ity of tablet 00:00: mouth [place] 00 daily with Medical breakfast. Branch aspirin 81 0 Yes [id number] 81mg Take 1 Univers mg chewable 7-10 00 tablet by ity of tablet 00:00: mouth [place] 00 daily with Medical breakfast. Branch aspirin 81 0 Yes [id number] 81mg Take 1 Univers mg chewable 7-10 00 tablet by ity of tablet 00:00: mouth [place] 00 daily with Medical breakfast. Branch aspirin 81 2021-0 Yes [id number] 81mg Take 1 Univers mg chewable 7-10 00 tablet by ity of tablet 00:00: mouth [place] 00 daily with Medical breakfast. Branch aspirin 81 2021-0 Yes [id number] 81mg Take 1 Univers mg chewable 7-10 00 tablet by ity of tablet 00:00: mouth [place] 00 daily with Medical breakfast. Branch aspirin 81 2021-0 Yes [id number] 81mg Take 1 Univers mg chewable 7-10 00 tablet by ity of tablet 00:00: mouth [place] 00 daily with Medical breakfast. Branch aspirin 81 2021-0 Yes [id number] 81mg Take 1 Univers mg chewable 7-10 00 tablet by ity of tablet 00:00: mouth [place] 00 daily with Medical breakfast. Branch aspirin 81 0 Yes [id number] 81mg Take 1 Univers mg chewable 7- 00 tablet by ity of tablet 00:00: mouth [place] 00 daily with Medical breakfast. Branch aspirin 81 Yes [id number] 81mg Take 1 Univers mg chewable 7-10 00 tablet by ity of tablet 00:00: mouth [place] 00 daily with Medical breakfast. Branch aspirin 81 Yes [id number] 81mg Take 1 Univers mg chewable 7-10 00 tablet by ity of tablet 00:00: mouth [place] 00 daily with Medical breakfast. Branch aspirin 81 0 Yes [id number] 81mg Take 1 Univers mg chewable 7- 00 tablet by ity of tablet 00:00: mouth [place] 00 daily with Medical breakfast. Branch predniSONE 2021- No [id number] 50mg Take 1 Univers 50 mg 7-02-17 00 tablet by ity of tablet 00:00: 00:00 mouth [place] 00 :00 daily. Medical Branch aspirin 81 2021- No [id number] 81mg Take 1 Univers mg chewable 7-01-31 tablet by it y of tablet 00:00: 00:00 mouth [place] 00 :00 daily with Medical breakfast. Branch predniSONE 2021- No [id number] 50mg Take 1 Univers 50 mg 02-01 [...] Yes 1{tbl} Take 1 Un alexia -acetaminop - tablet by ity of hen 10-325 13:56: [...] ipratropium Yes 1{ampul 1 Ampule Univers -albuterol 7-09 [...] PnIj dulaglutide Yes Trulicity U nivers (TRULICITY) 7-09 3 mg/0.5 ity of 3 mg/0.5 mL 13:56: mL [place] PnIj 12 subcutaneo Medical us pen Branch injector metFORMIN 0 Yes 750mg Take 750 Uni vers 500 mg 24 7-09 mg by ity of hr tablet 13:56: mouth [place] 12 daily with Medical breakfast. Branch HYDROcodone Yes [...] subcutaneo Medical us pen Branch injector metFORMIN 2021- Yes 750mg [...] 2 ity of tablet 11:48: 00:00 (two) [place] 08 :00 times Medical daily. Branch LORazepam [...] 2000, Until Discontinu ed, Routine metoprolol Yes [id number] 25mg Take 1 Univers succinate 01-31 00 tablet by ity o f XL 25 mg 24 00:00: mouth 2 [place] hr tablet 00 (two) Medical times [place] daily. metoprolol 2021-0 Yes [id number] 25mg Take 1 Univers succinate 01-31 tablet by ity o f XL 25 mg 24 00:00: mouth 2 [place] hr tablet 00 (two) Medical times [place] daily. metoprolol 2021-0 Yes [id number] 25mg Take 1 Univers succinate 01-31 tablet by ity o f XL 25 mg 24 00:00: mouth 2 [place] hr tablet 00 (two) Medical times Branch daily. metoprolol Yes [id number] 25mg Take 1 Univers succinate 01-31 tablet by ity o f XL 25 mg 24 00:00: mouth 2 [place] hr tablet 00 (two) Medical times Branch daily. furosemide 2021- No [id number] 40mg Take 1 Univers 40 mg 01-31 00 tablet by ity of tablet 00:00: 04:59 mouth 2 [place] 00 :00 (two) Medical times Branch daily for 30 days. furosemide 2021- No [id number] 40mg Take 1 Univers 40 mg 01-31 tablet by ity of tablet 00:00: 04:59 mouth 2 [place] 00 :00 (two) Medical times Branch daily for 30 days. metoprolol 2021- No [id number] 25mg Take 1 Univers succinate 01-31 00 tablet by ity of XL 25 mg 24 00:00: 00:00 mouth 2 [place] hr tablet 00 :00 (two) Medical times Branch daily. furosemide 2021- No [id number] 40mg Take 1 Univers 40 mg 01-31 00 tablet by ity of tablet 00:00: 00:00 mouth 2 [place] 00 :00 (two) Medical times Branch daily for 30 days. metoprolol 2021- No [id number] 25mg Take 1 Univers succinate 01-31 00 tablet by ity of XL 25 mg 24 00:00: 00:00 mouth 2 [place] hr tablet 00 :00 (two) Medical times Branch daily for 30 days. acetaminoph Yes 650mg 650 mg, Un alexia en 01-30 Oral, ity of (TYLENOL) 19:27: Q6HPRN, [place] tablet 650 59 Starting Medic al mg on Wed Branch 01/30/22 at 1427, Until Discontinu ed, Routine, Pain (scale 1-3), Temp > 38.5 C methylPREDN 2021- No 40mg 40 mg, Uni vers ISolone sod 01-29 Intravenou i ty of succ 14:00: 18:37 s, DAILY, [place] (SOLU-MEDRO 00 :50 First dose Me dical L (PF)) on [place] Branch injection 01/29/22 at 40 mg 0900, Until Discontinu ed, 1 mL ceFEPIme 2021- No 2000mg 2,000 mg, U nivers (MAXIPIME) 01-29-08 IV ity of 2,000 mg in 07:15: 22:11 [place], [place] NaCl 0.9% 00 :39 Q8H ABX, Medica l (NS) 50 mL First dose [facility] MINI-BAG on [place] 01/29/22 at 0215, Until Discontinu ed, Administer over 4 Hours, 50 mL
Reas on for Anti-Infec tive: Documented Infection< br>Documen alden Infection Site: Respirator y
Durat ion of Therapy: 7 days sodium Yes 4mL 4 mL, Univers chloride 7% 01-29 Inhalation it y of (HYPER-BLESSING) 01:00: , BID, [place] nebulizer 00 First dose Medi michel solution 4 on Wed Branch mL 01/28/22 at 2000, Until Discontinu ed, Routine ceFEPIme 2021- No 2000mg 2,000 mg, U nivers (MAXIPIME) 01-2807 IV ity of 2,000 mg in 23:45: 01:18 [place], [place] NaCl 0.9% 00 :00 ONCE, 1 Medical (NS) 50 mL dose, On [facility] h MINI-BAG Wed01/28/22 at 1845, Administer over 30 Minutes, 50 mL
[place] for Anti-Infec tive: Documented Infection< br>Documen alden Infection Site: Respirator y
Du ration of Therapy: 7 days propofoL IV Yes 5ug/kg/ 5-50 Uni vers infusion 7-06 min mcg/kg/min ity o f 22:46: ?112.5 kg [place] 21 (3.375-33. Medical 75 mL/hr, Branch rounded [...] 12 hours.
albuterol Yes 2.5mg 2.5 mg, [place] [facility] ers (PROVENTIL) 01-28 Inhalation it y of [...] Routine LORazepam 2021- No .5mg 0.5 mg, [facility] ers (ATIVAN) 01-28- Slow IV ity of [...] at 1400
Do Not Refrigerat e.
sulfur 2021-2021- No [id number] 5mL 5 mL, [place] [facility] ers hexafluorid 01-28 Intravenou i ty of e microsphr 15:45: 15:45 s, ONCE, 1 [place] (LUMASON) 00 :00 dose, On Medica l injection Wed01/28/22 Br anch mL at 1045, Routine
philosophy faculty member approving Restricted medication : STELLA [...] Branch 0800, Until Discontinu ed, Routine Sliding 0 Yes Subcutaneo Univ ers Scale 01-28 us, [...] Branch 0215, Until Discontinu ed, Routine aspirin 2021-0 Yes 81mg 81 mg, Univers chewable 01-28 [...] 34 Starting Medi michel mg on Wed [place] 01/28/22 at 0204, Until Discontinu ed, Routine, [...] 0201, Until Discontinu ed, Routine, Anxiety famotidine Yes 20mg 20 mg, Unive rs [...] Routine ipratropium 2021- No 3mL 3 mL, [place] [facility] ers -albuteroL 01-28 07-06 Inhalation it y of (DUONEB) 07:00: 20:55 , QID, [place] 0.5 mg-3 00 :07 First dose Medic al mg(2.5 mg on Wed Branch base)/3 mL 01/28/22 at nebulizer 0200, solution 3 Until mL Discontinu ed, Routine cyclobenzap Yes 10mg 10 mg, Univ ers rine 01-28 Oral, ity of (FLEXERIL) [...] Discontinu ed, Routine, Pain (scale 4-6) furosemide 0 2021- No 40mg 40 mg, IV U [...] Medica l base)/3 mL needed for [facility] nebulizer Wheezing. solution spironolact Yes 25mg [...] ity of 3 mg/0.5 mL 23:08: mL [place] PnIj 39 subcutaneo Medical us pen Branch injector metFORMIN Yes 750mg Take 750 Uni vers 500 mg 24 7-05 mg by ity of hr tablet 23:08: mouth [place] 39 daily with Medical breakfast. Branch ALPRAZolam 2021- No 1mg 1 mg, Unive rs (XANAX) 01-13 Oral, ity of tablet 1 mg 02:45: 01:35 ONCE, 1 [place] 00 :00 dose, On Medical [facility] Branch 01/12/22 at 2145, CT HYDROcodone [...] as mg 00 :00 dose, On Medical Mon Branch 01/12/22 at 1915, CT LORazepam Yes [...] Medica l base)/3 mL needed for [facility] nebulizer Wheezing. solution spironolact Yes 25mg [...] Medica l base)/3 mL needed for [facility] nebulizer Wheezing. solution spironolact Yes 25mg Take 25 mg Univers one 25 mg 6-20 by mouth 2 ity of tablet 14:06: (two) [place] 48 times Medical daily. Branch semaglutide 2022-0 Yes inject Univ ers (OZEMPIC) 6-20 under [...] [place] 48 times Medical daily. Branch LORazepam 0 Yes [...] Medica l base)/3 mL needed for [facility] nebulizer Wheezing. solution spironolact 0 Yes 25mg Take 25 mg Univers one 25 mg 6-20 by mouth 2 ity of tablet 14:06: (two) [place] 48 times Medical daily. Branch semaglutide Yes inject Univ ers (OZEMPIC) 6-20 under the ity o f 0.25 mg or 14:06: skin. [place] 0.5 mg(2 48 Medical mg/1.5 mL) Branch PnIj dulaglutide 0 Yes Trulicity U nivers (TRULICITY) 6-20 3 mg/0.5 ity of 3 mg/0.5 mL 14:06: mL [place] PnIj 48 subcutaneo Medical pen Branch injector metFORMIN 2021-0 [...] times Medical daily. Branch ALPRAZolam 2021-0 Yes [id number] .5mg Take 1 Univers 0.5 mg 6-20 tablet by ity of tablet 00:00: mouth 3 [place] 00 (three) Medical times Branch daily. ALPRAZolam 2021-0 Yes [id number] .5mg Take 1 Univers 0.5 mg 6-20 tablet by ity of tablet 00:00: mouth 3 [place] 00 (three) Medical times Branch daily. ALPRAZolam 2021-0 Yes [id number] .5mg Take 1 Univers 0.5 mg 6-20 tablet by ity of tablet 00:00: mouth 3 [place] 00 (three) Medical times Branch daily. ALPRAZolam 2021-0 Yes [id number] .5mg Take 1 Univers 0.5 mg 6-20 tablet by ity of tablet 00:00: mouth 3 [place] 00 (three) Medical times Branch daily. ALPRAZolam 2021-0 2022- No [id number] .5mg Take 1 Univers 0.5 mg 6-20 07-09 tablet by ity of tablet 00:00: 00:00 mouth 3 [place] 00 :00 (three) Medical times Branch daily. ALPRAZolam 2021-0 Yes .5mg 0.5 mg, Univ ers (XANAX) 6-19 Oral, TID, ity of tablet 0.5 01:30: First dose [place] mg 00 (after Medical last Branch modificati on) on 01/10/22 at 2030, Until Discontinu ed, Routine ALPRAZolam No .5mg 0.5 mg, Uni vers (XANAX) 01-10 Oral, TID, ity o f tablet 0.5 21:30: 01:15 First dose [place] mg 00 :25 on [facility] 01/10/22 at Branch 1630, Until Discontinu ed, Routine acetaminoph Yes 650mg 650 mg, Un alexia en 01-09 Oral, ity of (TYLENOL) 22:42: Q6HPRN, [place] tablet 650 06 Starting Medic al mg on Wed [place] 01/09/22 at 1742, Until Discontinu ed, Routine, Pain (scale 1-3), Pain (scale 4-6) FENTanyl PF No 50ug 50 mcg, Un alexia (SUBLIMAZE 01-09 Slow IV ity o f (PF)) 14:15: 18:52 [place], [place] injection 00 :00 ONCE, 1 Medical 50 mcg dose, On Branch [facility] 01/09/22 at 0915, Routine propofoL IV Yes 5ug/kg/ 5-50 Uni vers infusion 01-09 min mcg/kg/min ity o f 14:02: ?104.3 kg [place] 51 (3.129-31. Medical 29 mL/hr, Branch rounded to 3.13-31.29 mL/hr), IV Infusion, at 3.13-31.29 mL/hr, TITRATE, Starting on Wed01/09/22 at 0902, Until Discontinu ed, Sedation-R ASS score (-2 to -3), Routine QUEtiapine Yes 50mg 50 mg, Unive rs (SEROQUEL) 01-09 Oral, BID, ity of tablet 50 01:00: First dose [place] mg 00 (after Medical last Branch modificati on) on [facility] 01/08/22 at 2000, Until Discontinu ed, Routine QUEtiapine No 25mg 25 mg, Univ ers (SEROQUEL) 01-08 Oral, ity of tablet 25 13:54: 14:00 ONCE, 1 [place] mg 00 :00 dose, On [facility] 01/08/22 at 0900, Routine acetylcyste 2022-0 Yes 4mL 800 mg (4 U nivers ine 6-15 mL), ity of (MUCOMYST) 23:00: Inhalation [place] 200 mg/mL 00 , Q6H, Medical (20 %) First dose Branch solution on Wed 800 mg 01/07/22 at 1800, Until Discontinu ed, Routine FENTanyl PF 2021-0 2021- No 100ug 100 mcg, Univers (SUBLIMAZE 01-07-15 Slow IV ity o f (PF)) 20:15: 19:05 [place], [place] injection 00 :00 ONCE, 1 Medical 100 mcg dose, On Branch Wed01/07/22 at 1515, Routine busPIRone 0 Yes 5mg 5 mg, Univers (BUSPAR) 6-15 Enteral, ity of tablet 5 mg 18:00: BID, First 00 dose on Medical Wed Branch 01/07/22 at 1300, Until Discontinu ed, Routine haloperidol 2021-0 Yes 2mg 2 mg, Slow Univers lactate 6-15 IV Push, ity of (HALDOL) 17:41: Q4HPRN, [place] injection 2 00 Starting Medi michel mg [...] mcg/kg/min ity o f 21:35: ?104.3 kg [place] 37 (3.129-31. Medical 29 mL/hr, Branch rounded [...] of 1,000 mg in 19:00: 22:16 [place], [place] NaCl 0.9% 00 :00 Q8H ABX, 4 [...] 01-06 Oral, ity of sodium 18:45: DAILY, [place] (SENOKOT-S) 00 First dose Me dical 8.6-50 mg on Wed Branch per tablet 01/06/22 at 1 tablet 1345, Until Discontinu ed, Routine polyethylen Yes 17g 17 g, Unive rs e glycol 14 Enteral, ity of 3350 powder 18:45: DAILY, [place] 17 g 00 First dose Medical on Wed Branch 01/06/22 at 1345, Until Discontinu ed, Routine propofoL IV 2021- No 5ug/kg/ 5-50 Un alexia infusion 01-06-14 min mcg/kg/min ity of 01:12: 18:02 ?104.3 kg [place] 34 :29 (3.129-31. Medical 29 mL/hr, Branch [...] doses, Medical mEq/100 mL First dose [facility] RTU IVPB 20 on [place] mEq 01/04/22 at 1000, Last dose on 01/04/22 at 1200, 100 mL insulin 2021- No 10U 10 Units, [facility] ers glargine 01-04 Subcutaneo ity of (LANTUS 14:00: 15:09 us, DAILY, [place]a as U-100) 00 :45 First dose Medical injection (after Branch 10 Units last modificati on) on [place] 01/04/22 at 0900, Until Discontinu ed, Routine metoprolol 2021- No 5mg 5 mg, Slow Univers (LOPRESSOR) 01-04 IV Push, ity of injection 5 13:45: 17:13 BID, First [place] mg 00 :45 dose on Medical [place] 01/04/22 at 0845, Until Discontinu ed, Routine QUEtiapine 2021- No 25mg 25 mg, Univ ers (SEROQUEL) 01-0416 Oral, BID, it y of tablet 25 13:45: 13:55 First dose [place] mg 00 :32 (after Medical last Branch modificati on) on [place] 01/04/22 at 0845, Until Discontinu ed, Routine iopamidol 2021- No [id number] 100mL 100 mL, Univers (ISOVUE 01-04 Intravenou ity o f 370-500 mL) 10:15: 08:55 s, ONCE, 1 [place] injection 00 :00 dose, On Medica l 100 mL [place] Branch 01/04/22 at 0515, Routine propofoL IV 2021- No 5ug/kg/ 5-50 Un [place] infusion 01-0313 min mcg/kg/min ity of 21:04: 21:03 ?104.3 kg [place] 20 :20 (3.129-31. Medical 29 mL/hr, Branch rounded to 3.13-31.29 mL/hr), IV Infusion, TITRATE, Sedation-R ASS score (-1 to -2), Starting on 01/03/22 at 1604, For 2 days
In [...] ed, Routine insulin No 10U 10 Units, [facility] ers glargine 01-03 Subcutaneo ity of (LANTUS [...] is advisable.
insulin No 30U 30 Units, [facility] ers glargine 01-03 Subcutaneo ity of (LANTUS [...] 2200, Until Discontinu ed, Routine propofoL IV No 5ug/kg/ 5-50 Un [place] infusion 01-0211 [...] ity o f (PF)) 19:24: 19:34 Push, [place] injection 00 :00 ONCE, 1 Medical 100 mcg dose, On Branch Wed01/02/22 at 1430, Routine meropenem 2021- No 1000mg 1,000 mg, Univers (MERREM) 01-0214 IV ity of 1,000 mg in 19:00: 15:44 Piggyback, [place] NaCl 0.9% 00 :06 Q8H ABX, Medica [...] Q6H, ity of Insulin-Reg 17:00: First dose [place] ular + Fsbg 00 on Wed Medica [...] IV ity of injection 15:15: 14:43 Push, [place] 40 mg 00 :00 ONCE, 1 Medical dose, On Branch Wed01/02/22 at 1015, Routine glucagon Yes 1mg 1 mg, Univers (GLUCAGEN 6-10 Intramuscu ity of DIAGNOSTIC 14:10: lar, PRN, [place] KIT) 46 Starting Medical injection 1 on Wed Branch mg 01/02/22 at 0910, Until Discontinu ed, CT, Blood Glucose < or = 70 mg/dL and patient is unable to swallow or has mental changes. dextrose Yes 250mL 250 mL, IV Un [place] 10% (D10W) 6-10 Infusion, ity of bolus 14:10: PRN - [...] Inhalation ity of (DUONEB) 13:00: , Q4H, [place] 0.5 mg-3 00 First dose Medic al mg(2.5 mg (after Branch base)/3 mL last nebulizer modificati solution 3 on) on Wed mL 01/02/22 at 0800, Until Discontinu ed, Routine heparin Yes 5000U 5,000 Univers (porcine) 6-10 Units, ity of injection 13:00: Subcutaneo [place] 5,000 Units 00 us, Q12H, Med ical First dose Branch on Wed01/02/22 at 0800, Until Discontinu ed, Routine insulin 2021- No 20U 20 Units, [facility] ers glargine 01-02 Subcutaneo ity of (LANTUS 13:00: 14:11 us, BID, [place] U-100) 00 :23 First dose Medical injection on Wed Branch 20 Units 01/02/22 at 0800, Until Discontinu ed, Routine albuterol 2021- No 2.5mg 2.5 mg, Uni vers (PROVENTIL) 01-02 Inhalation i ty of 2.5 mg /3 12:30: 01:18 , Q6H, [facility] (0.083 00 :50 First dose Medi michel [...] at 0730, Until Discontinu ed, Routine acetylcyste 2021- No [...] of NS 500 mL 12:00: 14:27 from [place] IV 00 :44 1,564.5 mg Medical Piggyback = 15 mg/kg Bran ch RTU 1,500 ?104.3 mg kg), IV Piggyback, Q24H ABX, First dose on Wed01/02/22 at 0700, Until Discontinu ed, Administer over 90 Minutes
Reason for Anti-Infec tive: Empiric Therapy for Suspected Infection< br>Empiric Therapy Site: Respirator y
Durat ion of therapy: 72 hours sodium 2021- No 100meq 100 mEq, Univ ers bicarbonate 01-02 Slow IV ity of 1 mEq/mL 11:45: 09:45 Push, [place] (8.4 %) 00 :00 ONCE, 1 Medical injection dose, On Branch 100 mEq Wed01/02/22 at 0645, Routine meropenem 2021- No 1000mg 1,000 mg, Univers (MERREM) 01-02 IV ity of 1,000 mg in 11:15: 12:44 Piggyback, [place] NaCl 0.9% 00 :00 ONCE, 1 Medical (NS) 50 mL dose, On Branc h MINI-BAG Wed01/02/22 at 0615, Administer over 30 Minutes, 50 mL
Rest ricted use approved by: [id number]
[place] for Anti-Infec tive: Empiric Therapy for Suspected Infection< br>Empiric Therapy Site: Respirator y
Durat ion of therapy: 72 hours dexMEDEtomi 2021- No .2ug/kg 0.2-1.5 Univers dine 200 01-0210 /h mcg/kg/hr ity o f mcg in [...] Wed Branch 01/02/22 at 0400, CT LORazepam 2021- [...] Branch 12/09/21 at 0045, CT morpHINE (4 2021- No 4mg 4 [...] 12/09/21 at 0000, Routine predniSONE 2021-2021- No [id number] 40mg Take 2 Univers 20 mg 3-02 03-06 tablets by ity of tablet 00:00: 05:59 mouth [place] 00 :00 daily for Medical 3 days. Branch predniSONE 2021- No [id number] 40mg Take 2 Univers 20 mg 3-02 [...] Medica l base)/3 mL needed for [facility] nebulizer Wheezing. solution spironolact Yes 25mg [...] as Medica l base)/3 mL needed for [facility] nebulizer Wheezing. solution spironolact Yes 25mg Take [...] Potassium Yes Take by Unive rs Gluconate 3- mouth ity of 595 mg (99 15:03: [place]. [place] mg) Tab 49 Medical Branch ipratropium Yes 1{ampul 1 Ampule Univers -albuterol 3-01 e} every 4 ity of 0.5 mg-3 15:03: (four) [place] mg(2.5 mg 49 hours as Medica l base)/3 mL needed for [facility] nebulizer Wheezing. solution spironolact Yes 25mg Take [...] First dose [place] 17 g 00 on [facility] Medical 09/23/21 at Branch 0815, Until Discontinu ed, Routine proCHLORper No 5mg 5 mg, IV U nivers azine 09-23 Piggyback, ity of (COMPAZINE) 13:00: 12:33 ONCE, 1 [place] 5 mg in 00 :00 dose, On Medical NaCl 0.9% 09/23/21 Bran ch (NS) at 0700, piggyback 50 mL ondansetron 2021- No 8mg Take 8 mg Univers 8 mg tablet 09-23 by mouth ity of 12:53: 00:00 every 8 [place] 19 :00 (eight) Medical hours as Branch needed. ondansetron No 4mg 4 mg, Slow Univers (ZOFRAN 09-23 IV Push, ity of (PF)) 10:00: 09:12 ONCE, 1 [place] injection 4 00 :00 dose, On Medi michel mg [facility] 09/23/21 Branch at 0400, Routine ondansetron Yes 4mg 4 mg, Slow Univers (ZOFRAN 09-23 IV Push, ity of (PF)) 04:25: Q6HPRN, [place] injection 4 51 Starting Medi michel mg on Wed Branch 09/22/21 at 2225, Until Discontinu ed, Routine, Nausea and Vomiting (N/V) insulin Yes 60U 60 Units, [facility] rs glargine 09-23 Subcutaneo ity o f (LANTUS 03:00: us, QHS, [place] U-100) 00 First dose Medical injection on Wed Branch 60 Units 09/22/21 at 2100, Until Discontinu ed, Routine Sliding Yes Subcutaneo Univ ers Scale 3 us, Q4H, ity of Insulin - 02:45: [place] Lispro 00 (after Medical (HumaLOG) + last Branch Fsbg modificati Testing on) on [facility] 09/22/21 at 2045, Until Discontinu ed, Routine azithromyci 2021- No [id number] 250mg Take 1 Univers n 09-23- tablet by ity of (ZITHROMAX 00:00: 05:59 mouth [place] Z-ULYSSES) 250 00 :00 daily for Medi michel mg tablet 4 days. [place] azithromyci 2021- No [id number] 250mg Take 1 Univers n 09-23 03- tablet by ity of (ZITHROMAX 00:00: 05:59 mouth [place] Z-ULYSSES) 250 00 :00 daily for Medi michel mg tablet 4 days. [place] cyclobenzap Yes 5mg 5 mg, Unive rs [...] First dose Medical (HumaLOG) + on Wed [place] Fsbg 09/22/21 at Testing 1700, Until Discontinu ed, Routine dextrose Yes 250mL 250 mL, IV Un alexia 10% (D10W) 09-22 Infusion, ity of bolus 20:39: PRN - SEE [place] infusion 11 INSTRUCTIO Medic al 250 mL [...] Medical injection 1 on Wed Branch mg 2/28/22 at 1439, Until Discontinu ed, CT, Blood Glucose < or = 70 mg/dL and patient is unable to swallow or has mental changes. sulfur 2021- No [id number] 5mL 5 mL, Univ ers hexafluorid 09-22 Intravenou i ty of e microsphr 18:45: 19:00 s, ONCE, 1 [place] (LUMASON) 00 :00 dose, On Medica l injection 5 Wed [place] mL 09/22/21 at 1300, Routine
philosophy faculty member approving Restricted medication : MARY GLORIA HYDROcodone Yes 1{tbl} 1 tablet, Univers -acetaminop 09-22 Oral, ity of hen (NORCO) 16:26: Q8HPRN, [place]a as 10-325 mg 26 Starting Medica l tablet 1 on Wed [place] tablet 09/22/21 at 1026, Until Discontinu ed, [...] First dose Medi michel %) on Wed [place] nebulizer 09/22/21 at solution 0800, 2.5 mg Until Discontinu ed, Routine heparin 2021- Yes 5000U 5,000 Univers (porcine) 09-22 Units, ity of injection 14:00: Subcutaneo [place] 5,000 Units 00 us, Q12H, Med ical First dose Branch on Wed09/22/21 at 0800, Until Discontinu ed, Routine Sliding 2021- No Subcutaneo Uni vers Scale 09-22 us, AC+HS, ity of Insulin-Reg 13:30: 19:17 First dose [place] ular + Fsbg 00 :38 on [facility] Medica l Testing 09/22/21 at Branch [...] IV ity of (D50W) 11:14: Push, PRN, [place] injection 28 Starting Medica l 25 mL on [facility] Branch 09/22/21 at 0514, Until Discontinu ed, CT, Blood Glucose < or = 70 mg/dL and patient is unable to swallow or has mental status changes. albuterol 2021- No 2.5mg 2.5 mg, Uni vers (PROVENTIL) 09-22 Inhalation i ty of 2.5 mg /3 07:45: 07:15 , ONCE, 1 [place] mL (0.083 00 :00 dose, On Medica l %) [facility] nebulizer 09/22/21 at solution 0145, CT 2.5 mg furosemide 2021- No 40mg 40 mg, IV U nivers (LASIX) 09-22 Push, ity of injection 07:30: 06:32 ONCE, 1 [place] 40 mg 00 :00 dose, On Medical [facility] Branch 09/22/21 at 0130, CT methylpredn 2021- No 125mg 125 mg, U nivers isolone sod 09-22 Slow IV ity of succ 07:30: 06:31 Push, ONCE [place] (SOLU-MEDRO 00 :00 NOW, 1 Medica l L) dose, On Branch injection Mon 125 mg 09/22/21 at 0130, CT albuterol No 2.5mg 2.5 mg, Uni vers [...] 14:20: mL [place] PnIj 57 subcutaneo Medical us pen Branch injector dulaglutide 2020-07 Yes Trulicity U nivers (TRULICITY) 2-29 3 mg/0.5 ity of 3 mg/0.5 mL 14:20: mL [place] [facility]nIj [facility] Branch injector LORazepam 2020-07 Yes [id number] .5mg Take 1 Un a[place] 0.5 mg 2-02 tablet by ity of tablet 00:00: mouth 3 [place] 00 (three) Medical times Branch daily as needed for Nausea and Vomiting (N/V). LORazepam 2020-07 Yes [id number] .5mg Take 1 Un [place] 0.5 mg 2-02 tablet by ity of tablet 00:00: mouth 3 [place] 00 (three) Medical times Branch daily as needed for Nausea and Vomiting (N/V). LORazepam 2020-07- No [id number] .5mg Take 1 U nivers 0.5 mg [...] nch nebulizer Wheezing. solution nystatin 2018-07 Yes [id number] Apply to Un alexia 100,000 1-06 area(s) 2 ity of unit/gram 00:00: (two) [place] cream 00 times Medical daily. Branch nystatin 2018-07 Yes [id number] Apply to Un a[place] 100,000 1-06 area(s) 2 ity of unit/gram 00:00: (two) [place] cream 00 times Medical daily. Branch nystatin 2018-07- No [id number] Apply to U nivers 100,000 1-06 03-01 area(s) 2 ity of unit/gram 00:00: 00:00 (two) [place] cream 00 :00 times Medical daily. Branch rosuvastati 2018-07 Yes TK 1 T PO U nivers n 10 mg 0-28 QD ity of tablet 00:00: [place] 00 Medical Branch rosuvastati 2019- Yes TK 1 T PO U nivers n 10 mg 0-28 QD ity of tablet 00:00: [place] [facility] rosuvastati 2018- Yes TK 1 T PO U nivers n 10 mg 0-28 QD ity of tablet 00:00: [place] [facility] rosuvastati 2018-07 Yes TK 1 T PO U nivers n 10 mg 0-28 QD ity of tablet 00:00: [place] [facility] rosuvastati 2018- Yes TK 1 T PO U nivers n 10 mg 0-28 QD ity of tablet 00:00: [place] [facility] rosuvastati 2018-07 Yes TK 1 T PO U nivers n 10 mg 0-28 QD ity of tablet 00:00: [place] [facility] rosuvastati 2018-07 Yes TK 1 T PO U nivers n 10 mg 0-28 QD ity of tablet 00:00: [place] [facility] rosuvastati 2018- Yes TK 1 T PO U nivers n 10 mg 0-28 QD ity of tablet 00:00: [place] [facility] rosuvastati 2018-07 Yes TK 1 T PO U nivers n 10 mg 0-28 QD ity of tablet 00:00: [place] [facility] rosuvastati 2018- Yes TK 1 T PO U nivers n 10 mg 0-28 QD ity of tablet 00:00: [place] [facility] rosuvastati 2018- Yes TK 1 T PO U nivers n 10 mg 0-28 QD ity of tablet 00:00: [place] [facility] rosuvastati 2018- Yes TK 1 T PO U nivers n 10 mg 0-28 QD ity of tablet 00:00: [place] [facility] rosuvastati 2018- Yes TK 1 T PO U nivers n 10 mg 0-28 QD ity of tablet 00:00: [address] rosuvastati 2018- Yes TK 1 T PO U nivers n 10 mg 0-28 QD ity of tablet 00:00: [place] [facility] rosuvastati 2018- Yes TK 1 T PO U nivers n 10 mg 0-28 QD ity of tablet 00:00: [address] rosuvastati 2018- Yes TK 1 T PO U nivers n 10 mg 0-28 QD ity of tablet 00:00: Medical Branch rosuvastati 2018-07 Yes TK 1 T PO U nivers n 10 mg 0-28 QD ity of tablet 00:00: [place] Medical Branch rosuvastati 2018-07 Yes TK 1 T PO U nivers n 10 mg 0-28 QD ity of tablet 00:00: [place] [facility] rosuvastati 2018-07 Yes TK 1 T PO U nivers n 10 mg 0-28 QD ity of tablet 00:00: [place] Medical Branch rosuvastati 2018-07 Yes TK 1 T PO U nivers n 10 mg 0-28 QD ity of tablet 00:00: [place] Medical [place] rosuvastati 2018-07 Yes TK 1 T PO U nivers n 10 mg 0-28 QD ity of tablet 00:00: [place] [facility] rosuvastati 2018-07 Yes TK 1 T PO U nivers n 10 mg 0-28 QD ity of tablet 00:00: [place] Medical Branch ofloxacin 2018-07 Yes INSTIL 2 [...] 20 mg 0-09 ity of tablet 00:00: [place] 00 Medical Branch furosemide 2018-07 Yes Univers 20 mg 0-09 ity of tablet 00:00: [place] 00 Medical Branch furosemide 2018-07 Yes TK 1 T PO Un alexia 40 mg 0-09 QAM ity of tablet 00:00: [place] Medical Branch furosemide 2018-07 Yes TK 1 T PO Un alexia 40 mg 0-09 QAM ity of tablet 00:00: [place] 00 Medical Branch furosemide 2018-07 Yes Univers 20 mg 0-09 ity of tablet 00:00: [place] 00 Medical Branch furosemide 2018-07 Yes Univers 20 mg 0-09 ity of tablet 00:00: [place] 00 Medical Branch furosemide 2018-07 Yes Univers 20 mg 0-09 ity of tablet 00:00: [place] 00 Medical Branch furosemide 2018-07 Yes Univers 20 mg 0-09 ity of tablet 00:00: [place] 00 Medical Branch furosemide 2018-07 Yes Univers [...] Medical mg/1.5 mL) Branch PnIj fluconazole Yes [id number] 100mg Take 1 Univers 100 mg 3-26 tablet by ity of tablet 00:00: mouth [place] 00 daily. Medical Branch fluconazole Yes [id number] 100mg Take 1 Univers 100 mg 3-26 tablet by ity of tablet 00:00: mouth [place] 00 daily. Medical Branch fluconazole 2018- Yes [id number] 100mg Take 1 Univers 100 mg 3-26 tablet by ity of tablet 00:00: mouth [place] 00 daily. Medical Branch fluconazole 2019-0 Yes [id number] 100mg Take 1 Univers 100 mg 3-26 tablet by ity of tablet 00:00: mouth [place] 00 daily. Medical Branch fluconazole 2019-0 Yes [id number] 100mg Take 1 Univers 100 mg 3-26 tablet by ity of tablet 00:00: mouth [place] 00 daily. Medical Branch fluconazole 2019-0 Yes [id number] 100mg Take 1 Univers 100 mg 3-26 tablet by ity of tablet 00:00: mouth [place] 00 daily. Medical Branch fluconazole 2019-0 Yes [id number] 100mg Take 1 Univers 100 mg 3-26 tablet by ity of tablet 00:00: mouth [place] 00 daily. Medical Branch fluconazole 2019-0 Yes [id number] 100mg Take 1 Univers 100 mg 3-26 tablet by ity of tablet 00:00: mouth [place] 00 daily. Medical Branch fluconazole 2018- Yes [id number] 100mg Take 1 Univers 100 mg 3-26 tablet by ity of tablet 00:00: mouth [place] 00 daily. Medical Branch fluconazole 2018-2021- No [id number] 100mg Take 1 Univers 100 mg 3-26 07-09 tablet by ity of tablet 00:00: 00:00 mouth [place] 00 :00 daily. Medical Branch CLOTRIMAZOL 2017-07 Yes APPLY TO Un alexia E 1 % 0-11 THE ity of topical 00:00: AFFECTED [place] cream 00 AREA TWICE Medical DAILY Branch CLOTRIMAZOL 2017-07 Yes APPLY TO Un alexia E 1 % 0-11 THE ity of topical 00:00: AFFECTED [place] cream 00 AREA TWICE Medical DAILY Branch CLOTRIMAZOL 2017-07- No APPLY TO U nivers E 1 % 0-11 - THE ity of topical 00:00: 00:00 AFFECTED [...] [place] 00 :00 daily. Medical Branch HEMOCYTE-PL 2017-0 Yes Univer s US 106 mg 3-02 ity of iron- 1 mg 00:00: [place] Cap 00 Medical Branch HEMOCYTE-PL 2017-0 Yes Univer s US 106 mg 3-02 ity of iron- 1 mg 00:00: [place] Cap 00 Medical Branch HEMOCYTE-PL 2017-0 Yes Univer s US 106 mg 3-02 ity of iron- 1 mg 00:00: [place] Cap Medical Branch HEMOCYTE-PL 2018-0 Yes Univer s US 106 mg 3-02 ity of iron- 1 mg 00:00: [place] Cap 00 Medical Branch HEMOCYTE-PL 2018-0 Yes Univer s US 106 mg 3-02 ity of iron- 1 mg 00:00: [place] Cap 00 Medical Branch HEMOCYTE-PL 2017-0 Yes Univer s US 106 mg 3-02 ity of iron- 1 mg 00:00: [place] Cap 00 Medical Branch HEMOCYTE-PL 2017-0 Yes Univer s US 106 mg 3-02 ity of iron- 1 mg 00:00: [place] Cap 00 Medical Branch HEMOCYTE-PL 2017-0 Yes Univer s [...] mg 00:00: [place] Cap 00 Medical Branch paroxetine 2018-0 Yes Univers 40 mg 2-28 ity of tablet 00:00: [place] 00 Medical Branch paroxetine 2018-0 Yes Univers 40 mg 2-28 ity of tablet 00:00: [place] [address] Medical Branch paroxetine 2018-0 Yes Univers 40 mg 2-28 ity of tablet 00:00: [place] [address] Medical Branch paroxetine 2018-0 Yes Univers 40 mg 2-28 ity of tablet 00:00: [place] [address] Medical Branch paroxetine 2018-0 Yes Univers 40 mg 2-28 ity of tablet 00:00: [place] [address] Medical Branch paroxetine 2018-0 Yes Univers 40 mg 2-28 ity of tablet 00:00: [place] [address] Medical Branch paroxetine 2018-0 Yes Univers 40 mg 2-28 ity of tablet 00:00: [place] [address] Medical Branch paroxetine 2018-0 Yes Univers 40 mg 2-28 ity of tablet 00:00: [place] [address] Medical Branch paroxetine 2018-0 Yes Univers 40 mg 2-28 ity of tablet 00:00: [place] [address] Medical Branch paroxetine 2018-0 Yes Univers 40 mg 2-28 ity of tablet 00:00: [place] [address] Medical Branch paroxetine 2018-0 Yes Univers 40 mg 2-28 ity of tablet 00:00: [place] [address] Medical Branch paroxetine 2018-0 Yes Univers 40 mg 2-28 ity of tablet 00:00: [place] [address] Medical Branch paroxetine 2018-0 Yes Univers 40 mg 2-28 ity of tablet 00:00: [place] [address] Medical Branch paroxetine 2018-0 Yes Univers 40 mg 2-28 ity of tablet 00:00: [place] [address] Medical Branch paroxetine 2018-0 Yes Univers 40 mg 2-28 ity of tablet 00:00: [place] [address] Medical Branch paroxetine 2018-0 Yes Univers 40 mg 2-28 ity of tablet 00:00: [place] [address] Medical Branch paroxetine 2018-0 Yes Univers 40 mg 2-28 ity of tablet 00:00: [place] [address] Medical Branch paroxetine 2018-0 Yes Univers 40 mg 2-28 ity of tablet 00:00: [place] [address] Medical Branch paroxetine 2018-0 Yes Univers 40 mg 2-28 ity of tablet 00:00: [place] [address] Medical Branch paroxetine 2018-0 Yes Univers 40 mg 2-28 ity of tablet 00:00: [place] [address] Medical Branch paroxetine 2018-0 Yes Univers 40 mg 2-28 ity of tablet 00:00: [place] [address] Medical Branch paroxetine 2018-0 Yes Univers 40 [...] (3 mL) 00 Medical injection Branch LEVEMIR Yes 60U 60 Units. Unive rs FLEXTOUCH 1-09 ity of 100 unit/mL 00:00: [place] (3 mL) 00 Medical injection Branch LEVEMIR Yes INJECT 5 Univer s FLEXTOUCH 1-09 UNITS SC ity of 100 unit/mL 00:00: QD [place] (3 mL) Medical injection Branch LEVEMIR Yes INJECT 5 Univer s FLEXTOUCH 1-09 UNITS SC ity of 100 unit/mL 00:00: QD [place] (3 mL) Medical injection Branch LEVEMIR Yes INJECT 5 Univer s FLEXTOUCH 1-09 UNITS SC ity of 100 unit/mL 00:00: QD [place] (3 mL) Medical injection Branch LEVEMIR Yes INJECT 5 Univer s FLEXTOUCH 1-09 UNITS SC ity of 100 unit/mL 00:00: QD [place] (3 mL) Medical injection Branch LEVEMIR Yes INJECT 5 Univer s FLEXTOUCH 1-09 UNITS SC ity of 100 unit/mL 00:00: QD [place] (3 mL) 00 Medical injection Branch LEVEMIR Yes INJECT 5 Univer s FLEXTOUCH 1-09 UNITS SC ity of 100 unit/mL 00:00: QD [place] (3 mL) Medical injection Branch LEVEMIR Yes INJECT 5 Univer s FLEXTOUCH 1-09 UNITS SC ity of 100 unit/mL 00:00: QD [place] (3 mL) 00 Medical injection Branch sodium 2016-07 Yes 4mL Inhale 4 [...] as solution 00 :00 times Medical daily. Branch ranitidine Yes TK 1 T PO Un alexia 300 mg 4-18 BID ity of tablet 00:00: [place] [facility] ranitidine 2017 Yes TK 1 T PO Un alexia 300 mg 4-18 BID ity of tablet 00:00: [place] [facility] ranitidine Yes TK 1 T PO Un alexia 300 mg 4-18 BID ity of tablet 00:00: [place] [facility] ranitidine Yes TK 1 T PO Un alexia 300 mg 4-18 BID ity of tablet 00:00: [place] Medical Branch ranitidine Yes TK 1 T PO Un alexia 300 mg 4-18 BID ity of tablet 00:00: [place] [facility] ranitidine Yes TK 1 T PO Un alexia 300 mg 4-18 BID ity of tablet 00:00: [place] [facility] Branch ranitidine Yes TK 1 T PO Un alexia 300 mg 4-18 BID ity of tablet 00:00: [place] [facility] ranitidine Yes TK 1 T PO Un alexia 300 mg 4-18 BID ity of tablet 00:00: [place] [facility] Branch ranitidine Yes TK 1 T PO Un alexia 300 mg 4-18 BID ity of tablet 00:00: [place] Medical Branch ranitidine Yes TK 1 T PO Un alexia 300 mg 4-18 BID ity of tablet 00:00: [place] [facility] Branch ranitidine Yes TK 1 T PO Un alexia 300 mg 4-18 BID ity of tablet 00:00: [place] [facility] Branch ranitidine Yes TK 1 T PO Un alexia 300 mg 4-18 BID ity of tablet 00:00: [place] Medical Branch ranitidine Yes TK 1 T PO Un alexia 300 mg 4-18 BID ity of tablet 00:00: [place] Medical Branch ranitidine 2021- No TK 1 T PO U nivers 300 mg 4-18 08-05 BID ity of tablet 00:00: 00:00 [place] 00 :00 Medical Branch QUEtiapine Yes 50mg Take 1 Tab U nivers (SEROQUEL) 9-26 by mouth ity o f 50 mg 00:00: at [place] tablet 00 bedtime. Medical Branch QUEtiapine 2015-0 [...] 40mg Take 2 Unive rs (PAXIL) 20 03-28 Tabs by ity of mg tablet 00:00: mouth [place] 00 daily. Medical Branch paroxetine 2021- No 40mg Take 2 Univ ers (PAXIL) 20 03-28 03- Tabs by ity o f mg tablet 00:00: 00:00 mouth [place] 00 :00 daily. Medical Branch pregabalin Yes 300mg Take 1 Cap Univers (LYRICA) [...] capsule 00 bedtime. Medical Branch pregabalin 0 2022- No 300mg Take 1 Cap Univers (LYRICA) 6-13 -16 by mouth ity of 300 mg 00:00: 00:00 at [place] capsule 00 :00 bedtime. Medical Branch Immunizations Ordered Filled Immunization Date Status Comments [facility] e Immunization Name Name Pneumococcal 2017-06-08 Completed [place] o f Polysaccharide, 00:00:00 [facility] ical PPSV23 (PNEUMOVAX) Branch Influenza Virus 2017-06-08 Completed Universit y of Vaccine Quad IM 3+ 00:00:00 [facility] Branch Pneumococcal 2017-06-08 Completed [place] o f Polysaccharide, 00:00:00 [place] Med ical PPSV23 (PNEUMOVAX) Branch Influenza Virus 2017-06-08 Completed Universit y of Vaccine Quad IM 3+ 00:00:00 [facility] Pneumococcal 2017-06-08 Completed University o f Polysaccharide, 00:00:00 [place] Med ical PPSV23 (PNEUMOVAX) Branch Influenza Virus 2017-06-08 Completed Universit y of Vaccine Quad IM 3+ 00:00:00 [facility] Pneumococcal 2017-06-08 Completed University o f Polysaccharide, 00:00:00 [place] Med ical PPSV23 (PNEUMOVAX) Branch Influenza Virus 2017-06-08 Completed Universit y of Vaccine Quad IM 3+ 00:00:00 [facility] Pneumococcal 2017-06-08 Completed University o f Polysaccharide, 00:00:00 [place] Med ical PPSV23 (PNEUMOVAX) Branch Influenza Virus 2017-06-08 Completed Universit y of Vaccine Quad IM 3+ 00:00:00 [facility] Pneumococcal 2017-06-08 Completed University o f Polysaccharide, 00:00:00 [place] Med ical PPSV23 (PNEUMOVAX) Branch Influenza Virus 2017-06-08 Completed Universit y of Vaccine Quad IM 3+ 00:00:00 [facility] Pneumococcal 2017-06-08 Completed University o f Polysaccharide, 00:00:00 [place] Med ical PPSV23 (PNEUMOVAX) Branch Influenza Virus 2017-06-08 Completed Universit y of Vaccine Quad IM 3+ 00:00:00 [facility] Pneumococcal 2017-06-08 Completed University o f Polysaccharide, 00:00:00 [place] Med ical PPSV23 (PNEUMOVAX) Branch Influenza Virus 2017-06-08 Completed Universit y of Vaccine Quad IM 3+ 00:00:00 [facility] Pneumococcal 2017-06-08 Completed University o f Polysaccharide, 00:00:00 [place] Med ical PPSV23 (PNEUMOVAX) Branch Influenza Virus 2017-06-08 Completed Universit y of Vaccine Quad IM 3+ 00:00:00 [facility] Pneumococcal 2017-06-08 Completed University o f Polysaccharide, 00:00:00 [place] Med ical PPSV23 (PNEUMOVAX) Branch Influenza Virus 2017-06-08 Completed Universit y of Vaccine Quad IM 3+ 00:00:00 [facility] Pneumococcal 2017-06-08 Completed University o f Polysaccharide, 00:00:00 [place] Med ical PPSV23 (PNEUMOVAX) Branch Influenza Virus 2017-06-08 Completed Universit y of Vaccine Quad IM 3+ 00:00:00 [facility] Pneumococcal 2017-06-08 Completed University o f Polysaccharide, 00:00:00 [place] [facility] PPSV23 (PNEUMOVAX) Branch Influenza Virus 2017-06-08 Completed Universit y of Vaccine Quad IM 3+ 00:00:00 [facility] Pneumococcal 2017-06-08 Completed University o f Polysaccharide, 00:00:00 [place] [facility] PPSV23 (PNEUMOVAX) Branch Influenza Virus 2017-06-08 Completed Universit y of Vaccine Quad IM 3+ 00:00:00 [facility] Pneumococcal 2017-06-08 Completed University o f Polysaccharide, 00:00:00 [place] [facility] PPSV23 (PNEUMOVAX) Branch Influenza Virus 2017-06-08 Completed Universit y of Vaccine Quad IM 3+ 00:00:00 [facility] Pneumococcal 2017-06-08 Completed University o f Polysaccharide, 00:00:00 [place] [facility] PPSV23 (PNEUMOVAX) Branch Influenza Virus 2017-06-08 Completed Universit y of Vaccine Quad IM 3+ 00:00:00 [facility] Pneumococcal 2017-06-08 Completed University o f Polysaccharide, 00:00:00 [place] [facility] PPSV23 (PNEUMOVAX) Branch Influenza Virus 2017-06-08 Completed Universit y of Vaccine Quad IM 3+ 00:00:00 [facility] Pneumococcal 2017-06-08 Completed University o f Polysaccharide, 00:00:00 [place] [facility] PPSV23 (PNEUMOVAX) Branch Influenza Virus 2017-06-08 Completed [facility]it y of Vaccine Quad IM 3+ 00:00:00 [facility] Pneumococcal 2017-06-08 Completed University o f Polysaccharide, 00:00:00 [place] [facility] PPSV23 (PNEUMOVAX) Branch Influenza Virus 2017-06-08 Completed Universit y of Vaccine Quad IM 3+ 00:00:00 [facility] Pneumococcal 2017-06-08 Completed University o f Polysaccharide, 00:00:00 [place] [facility] PPSV23 (PNEUMOVAX) Branch Influenza Virus 2017-06-08 Completed Universit y of Vaccine Quad IM 3+ 00:00:00 [facility] Pneumococcal 2017-06-08 Completed University o f Polysaccharide, 00:00:00 [place] [facility] PPSV23 (PNEUMOVAX) Branch Influenza Virus 2017-06-08 Completed Universit y of Vaccine Quad IM 3+ 00:00:00 [facility] Pneumococcal 2017-06-08 Completed University o f Polysaccharide, 00:00:00 [place] [facility] PPSV23 (PNEUMOVAX) Branch Influenza Virus 2017-06-08 Completed [facility]it y of Vaccine Quad IM 3+ 00:00:00 [facility] Pneumococcal 2017-06-08 Completed University o f Polysaccharide, 00:00:00 [facility] ical PPSV23 (PNEUMOVAX) Branch Influenza Virus 2017-06-08 Completed Universit y of Vaccine Quad IM 3+ 00:00:00 [facility] Influenza Virus 2015-06-20 Completed [facility]it y of Vaccine Quad IM 3+ 00:00:00 [facility] Influenza Virus 2015-06-20 Completed [facility]it y of Vaccine [facility] IM 3+ 00:00:00 [facility] Influenza Virus 2015-06-20 Completed [facility]it y of Vaccine Quad IM 3+ 00:00:00 [facility] Influenza Virus 2015-06-20 Completed [facility]it y of Vaccine [facility] IM 3+ 00:00:00 [facility] Influenza Virus 2015-06-20 Completed [facility]it y of Vaccine [facility] IM 3+ 00:00:00 [facility] Influenza Virus 2015-06-20 Completed [facility]it y of Vaccine [facility] IM 3+ 00:00:00 [facility] Influenza Virus 2015-06-20 Completed [facility]it y of Vaccine [facility] IM 3+ 00:00:00 [facility] Influenza Virus 2015-06-20 Completed [facility]it y of Vaccine [facility] IM 3+ 00:00:00 [facility] Influenza Virus 2015-06-20 Completed [facility]it y of Vaccine [facility] IM 3+ 00:00:00 [facility] Influenza Virus 2015-06-20 Completed [facility]it y of Vaccine [facility] IM 3+ 00:00:00 [facility] Influenza Virus 2015-06-20 Completed [facility]it y of Vaccine [facility] IM 3+ 00:00:00 [facility] Influenza Virus 2015-06-20 Completed [facility]it y of Vaccine Quad IM 3+ 00:00:00 [facility] Influenza Virus 2015-06-20 Completed [facility]it y of Vaccine [facility] IM 3+ 00:00:00 [facility] Influenza Virus 2015-06-20 Completed [facility]it y of Vaccine [facility] IM 3+ 00:00:00 [facility] Influenza Virus 2015-06-20 Completed [facility]it y of Vaccine [facility] IM 3+ 00:00:00 [facility] Influenza Virus 2015-06-20 Completed [facility]it y of Vaccine [facility] IM 3+ 00:00:00 [facility] Influenza Virus 2015-06-20 Completed [facility]it y of Vaccine Quad IM 3+ 00:00:00 [facility] Influenza Virus 2015-06-20 Completed [facility]it y of Vaccine Quad IM 3+ 00:00:00 [facility] Influenza Virus 2015-06-20 Completed [facility]it y of Vaccine Quad IM 3+ 00:00:00 [facility] Influenza Virus 2015-06-20 Completed [facility]it y of Vaccine Quad IM 3+ 00:00:00 [facility] Influenza Virus 2015-06-20 Completed [facility]it y of Vaccine Quad IM 3+ 00:00:00 [facility] Influenza Virus 2015-06-20 Completed [facility]it y of Vaccine Quad IM 3+ 00:00:00 [facility] Pneumococcal 2014-07-31 Completed University o f Polysaccharide, 00:00:00 [place] [facility] PPSV23 (PNEUMOVAX) Branch Influenza Virus 2014-07-31 Completed [facility]it y of Vaccine Quad IM 3+ 00:00:00 [facility] TDAP 2014-07-31 Completed University of 00:00:00 [facility] Pneumococcal 2014-07-31 Completed University o f Polysaccharide, 00:00:00 [place] [facility] PPSV23 (PNEUMOVAX) Branch Influenza Virus 2014-07-31 Completed Universit y of Vaccine Quad IM 3+ 00:00:00 [facility] TDAP 2014-07-31 Completed University of 00:00:00 [facility] Pneumococcal 2014-07-31 Completed University o f Polysaccharide, 00:00:00 [place] [facility] PPSV23 (PNEUMOVAX) Branch Influenza Virus 2014-07-31 Completed Universit y of Vaccine Quad IM 3+ 00:00:00 [facility] TDAP 2014-07-31 Completed University of 00:00:00 [facility] Pneumococcal 2014-07-31 Completed University o f Polysaccharide, 00:00:00 [place] [facility] PPSV23 (PNEUMOVAX) Branch Influenza Virus 2014-07-31 Completed [facility]it y of Vaccine Quad IM 3+ 00:00:00 [facility] TDAP 2014-07-31 Completed University of 00:00:00 [facility] Pneumococcal 2014-07-31 Completed University o f Polysaccharide, 00:00:00 [place] [facility] PPSV23 (PNEUMOVAX) Branch Influenza Virus 2014-07-31 Completed [facility]it y of Vaccine Quad IM 3+ 00:00:00 [facility] TDAP 2014-07-31 Completed University of 00:00:00 [facility] Pneumococcal 2014-07-31 Completed University o f Polysaccharide, 00:00:00 [place] [facility] PPSV23 (PNEUMOVAX) Branch Influenza Virus 2014-07-31 Completed Universit y of Vaccine Quad IM 3+ 00:00:00 [facility] TDAP 2014-07-31 Completed University of 00:00:00 [facility] Pneumococcal 2014-07-31 Completed University o f Polysaccharide, 00:00:00 [place] [facility] PPSV23 (PNEUMOVAX) Branch Influenza Virus 2014-07-31 Completed Universit y of Vaccine Quad IM 3+ 00:00:00 [facility] TDAP 2014-07-31 Completed University of 00:00:00 [facility] Pneumococcal 2014-07-31 Completed University o f Polysaccharide, 00:00:00 [place] [facility] PPSV23 (PNEUMOVAX) Branch Influenza Virus 2014-07-31 Completed Universit y of Vaccine Quad IM 3+ 00:00:00 [facility] TDAP 2014-07-31 Completed University of 00:00:00 [facility] Pneumococcal 2014-07-31 Completed University o f Polysaccharide, 00:00:00 [place] [facility] PPSV23 (PNEUMOVAX) Branch Influenza Virus 2014-07-31 Completed Universit y of Vaccine Quad IM 3+ 00:00:00 [facility] TDAP 2014-07-31 Completed University of 00:00:00 [facility] Pneumococcal 2014-07-31 Completed University o f Polysaccharide, 00:00:00 [place] [facility] PPSV23 (PNEUMOVAX) Branch Influenza Virus 2014-07-31 Completed Universit y of Vaccine Quad IM 3+ 00:00:00 [facility] TDAP 2014-07-31 Completed University of 00:00:00 [facility] Pneumococcal 2014-07-31 Completed University o f Polysaccharide, 00:00:00 [place] [facility] PPSV23 (PNEUMOVAX) Branch Influenza Virus 2014-07-31 Completed Universit y of Vaccine Quad IM 3+ 00:00:00 [facility] TDAP 2014-07-31 Completed University of 00:00:00 [facility] Pneumococcal 2014-07-31 Completed University o f Polysaccharide, 00:00:00 [place] [facility] PPSV23 (PNEUMOVAX) Branch Influenza Virus 2014-07-31 Completed Universit y of Vaccine Quad IM 3+ 00:00:00 [facility] TDAP 2014-07-31 Completed University of 00:00:00 [facility] Pneumococcal 2014-07-31 Completed University o f Polysaccharide, 00:00:00 [place] [facility] PPSV23 (PNEUMOVAX) Branch Influenza Virus 2014-07-31 Completed Universit y of Vaccine Quad IM 3+ 00:00:00 [facility] TDAP 2014-07-31 Completed University of 00:00:00 [facility] Pneumococcal 2014-07-31 Completed University o f Polysaccharide, 00:00:00 [place] [facility] PPSV23 (PNEUMOVAX) Branch Influenza Virus 2014-07-31 Completed Universit y of Vaccine Quad IM 3+ 00:00:00 [facility] TDAP 2014-07-31 Completed University of 00:00:00 [facility] Pneumococcal 2014-07-31 Completed University o f Polysaccharide, 00:00:00 [place] [facility] PPSV23 (PNEUMOVAX) Branch Influenza Virus 2014-07-31 Completed Universit y of Vaccine Quad IM 3+ 00:00:00 [facility] TDAP 2014-07-31 Completed University of 00:00:00 [facility] Pneumococcal 2014-07-31 Completed University o f Polysaccharide, 00:00:00 [place] [facility] PPSV23 (PNEUMOVAX) Branch Influenza Virus 2014-07-31 Completed Universit y of Vaccine Quad IM 3+ 00:00:00 [facility] TDAP 2014-07-31 Completed University of 00:00:00 [facility] Pneumococcal 2014-07-31 Completed University o f Polysaccharide, 00:00:00 [place] [facility] PPSV23 (PNEUMOVAX) Branch Influenza Virus 2014-07-31 Completed Universit y of Vaccine Quad IM 3+ 00:00:00 [facility] TDAP 2014-07-31 Completed University of 00:00:00 [facility] Pneumococcal 2014-07-31 Completed University o f Polysaccharide, 00:00:00 [place] [facility] PPSV23 (PNEUMOVAX) Branch Influenza Virus 2014-07-31 Completed Universit y of Vaccine Quad IM 3+ 00:00:00 [facility] TDAP 2014-07-31 Completed University of 00:00:00 [facility] Pneumococcal 2014-07-31 Completed University o f Polysaccharide, 00:00:00 [place] [facility] PPSV23 (PNEUMOVAX) Branch Influenza Virus 2014-07-31 Completed Universit y of Vaccine Quad IM 3+ 00:00:00 [facility] TDAP 2014-07-31 Completed University of 00:00:00 [facility] Pneumococcal 2014-07-31 Completed University o f Polysaccharide, 00:00:00 [place] [facility] PPSV23 (PNEUMOVAX) Branch Influenza Virus 2014-07-31 Completed Universit y of Vaccine Quad IM 3+ 00:00:00 [facility] TDAP 2014-07-31 Completed University of 00:00:00 [facility] Pneumococcal 2014-07-31 Completed University o f Polysaccharide, 00:00:00 [place] [facility] PPSV23 (PNEUMOVAX) Branch Influenza Virus 2014-07-31 Completed Universit y of Vaccine Quad IM 3+ 00:00:00 [facility] TDAP 2014-07-31 Completed University of 00:00:00 [facility] Pneumococcal 2014-07-31 Completed University o f Polysaccharide, 00:00:00 [place] [facility] PPSV23 (PNEUMOVAX) Branch Influenza Virus 2014-07-31 Completed Universit y of Vaccine Quad IM 3+ 00:00:00 [facility] TDAP 2014-07-31 Completed University of 00:00:00 [facility] Vital Signs Vital Name Observation Time Observation Value Comments Source Systolic blood 2022-09-09 14:30:00 105 mm[Hg] Univer sity of pressure [facility] Diastolic blood 2022-09-09 14:30:00 78 mm[Hg] Unive rsity of [facility] Heart rate 2022-09-09 14:30:00 95 /min [facility] Body temperature 2022-09-09 14:30:00 37.22 [place] Univ ersity [facility] Respiratory rate 2022-09-09 14:30:00 12 /min [facility] Oxygen saturation in 2022-09-09 14:30:00 93 /min University of Arterial blood by [facility] Pulse oximetry Branch Body height 2022-09-09 12:41:00 152.4 cm [facility] [place] [facility] Body weight 2022-09-09 12:41:00 98.431 kg [facility] [place] [facility] BMI 2022-09-09 12:41:00 42.38 kg/m2 [facility] [place] [facility] Systolic blood 2022-08-10 22:08:00 129 mm[Hg] Univer sity of pressure [facility] Diastolic blood 2022-08-10 22:08:00 76 mm[Hg] Unive rsity of pressure [place] [facility] Heart rate 2022-08-10 22:08:00 107 /min [facility] [place] [facility] Body temperature 2022-08-10 22:08:00 37.17 Laly Univ ersity [facility] Respiratory rate 2022-08-10 22:08:00 15 /min Univ ersity of [facility] Oxygen saturation in 2022-08-10 22:08:00 96 /min University of Arterial blood by [facility] Pulse oximetry Branch Body weight 2022-08-10 09:00:00 98.5 kg [facility] [place] [facility] BMI 2022-08-10 09:00:00 41.03 kg/m2 [facility] [place] [facility] Body height 2022-08-05 06:47:00 154.9 cm [facility] Systolic blood 2022-06-05 05:00:00 96 mm[Hg] Univer sity of pressure [facility] Diastolic blood 2022-06-05 05:00:00 66 mm[Hg] Unive rsity of pressure [facility] Heart rate 2022-06-05 05:00:00 82 /min [facility] [place] [facility] Respiratory rate 2022-06-05 05:00:00 13 /min Univ ersity [facility] Oxygen saturation in 2022-06-05 05:00:00 97 /min University of Arterial blood by [facility] Pulse oximetry Branch Body temperature 2022-06-05 02:51:00 36.33 Laly Univ ersity of [facility] [place] [facility] Body height 2022-06-05 02:51:00 154.9 cm [facility] [place] [facility] Body weight 2022-06-05 02:51:00 97.523 kg [facility] [place] [facility] BMI 2022-06-05 02:51:00 40.62 kg/m2 [facility] [place] [facility] Systolic blood 2022-05-13 07:00:00 127 mm[Hg] Univer sity of pressure [facility] Diastolic blood 2022-05-13 07:00:00 84 mm[Hg] Unive rsity of pressure [facility] Heart rate 2022-05-13 07:00:00 90 /min [facility] [place] [facility] Respiratory rate 2022-05-13 07:00:00 14 /min Univ ersity of [facility] Oxygen saturation in 2022-05-13 07:00:00 97 /min [facility] of Arterial blood by [place] [facility] Pulse oximetry [facility] Body temperature 2022-05-13 04:01:00 36.56 Laly Univ ersity of [facility] Body height 2022-05-13 04:01:00 154.9 cm [facility] Body weight 2022-05-13 04:01:00 95.255 kg [facility] [place] [facility] BMI 2022-05-13 04:01:00 39.68 kg/m2 [facility] [place] [facility] Systolic blood 2022-05-02 07:00:00 147 mm[Hg] Univer sity of pressure [facility] Diastolic blood 2022-05-02 07:00:00 90 mm[Hg] Unive rsity of pressure [facility] Heart rate 2022-05-02 07:00:00 86 /min [facility] [place] [facility] Respiratory rate 2022-05-02 07:00:00 17 /min Univ ersity of [facility] Oxygen saturation in 2022-05-02 07:00:00 98 /min [facility] of Arterial blood by [place] [facility] Pulse oximetry [facility] Body temperature 2022-05-02 05:21:00 36.44 Laly Univ ersity of [facility] [place] [facility] Body height 2022-05-02 05:21:00 154.9 cm [facility] [place] [facility] Body weight 2022-05-02 05:21:00 95.255 kg [facility] [place] [facility] BMI 2022-05-02 05:21:00 39.68 kg/m2 [facility] [place] [facility] Systolic blood 2022-04-29 05:36:00 133 mm[Hg] Univer sity of pressure [facility] Diastolic blood 2022-04-29 05:36:00 85 mm[Hg] Unive rsity of pressure [facility] Heart rate 2022-04-29 05:36:00 89 /min [facility] [place] [facility] Respiratory rate 2022-04-29 05:36:00 22 /min Univ ersity of [facility] Oxygen saturation in 2022-04-29 05:36:00 100 /min [facility] of Arterial blood by [place] [facility] Pulse oximetry [facility] Body temperature 2022-04-29 02:44:00 36.56 L[place] Univ ersity of [facility] [place] [facility] Body height 2022-04-29 02:44:00 154.9 cm [facility] [place] [facility] Body weight 2022-04-29 02:44:00 95.255 kg [facility] [place] [facility] BMI 2022-04-29 02:44:00 39.68 kg/m2 [facility] [place] [facility] Systolic blood 2022-02-27 21:00:00 116 mm[Hg] Univer sity of pressure [facility] Diastolic blood 2022-02-27 21:00:00 74 mm[Hg] Unive rsity of pressure [facility] Heart rate 2022-02-27 21:00:00 89 /min [facility] [place] [facility] Body temperature 2022-02-27 21:00:00 36.61 Laly Univ ersity [facility] Respiratory rate 2022-02-27 21:00:00 18 /min Univ ersity of [facility] Oxygen saturation in 2022-02-27 21:00:00 98 /min [facility] of Arterial blood by [place] [facility] Pulse oximetry Branch Body weight 2022-02-23 13:00:00 92.987 kg [facility] [place] [facility] BMI 2022-02-23 13:00:00 38.73 kg/m2 [facility] [place] [facility] Body height 2022-02-21 01:00:00 154.9 cm [facility] [place] [facility] Body temperature 2022-02-17 21:50:00 37.17 Laly Univ ersity of [place] [facility] Heart rate 2022-02-17 21:42:00 77 /min [facility] [place] [facility] Respiratory rate 2022-02-17 21:42:00 18 /min Univ ersity of [place] [facility] Oxygen saturation in 2022-02-17 21:42:00 94 /min University of Arterial blood by [facility] Pulse oximetry Branch Systolic blood 2022-02-17 10:00:00 [...] 16:32:00 136 mm[Hg] Univer sity of pressure [facility] Diastolic blood 2022-01-31 16:32:00 80 mm[Hg] Unive rsity of pressure [facility] Heart rate 2022-01-31 16:32:00 84 /min [facility] [place] [facility] Body temperature 2022-01-31 16:32:00 37 Laly Univ ersity [facility] Respiratory rate 2022-01-31 16:32:00 10 /min Univ ersity of [facility] Oxygen saturation in 2022-01-31 16:32:00 98 /min University of Arterial blood by [facility] Pulse oximetry Branch Body weight 2022-01-30 09:00:00 103.964 kg [facility] [place] [facility] BMI 2022-01-30 09:00:00 43.31 kg/m2 [facility] Body height 2022-01-28 04:12:00 154.9 cm [facility] [place] [facility] Systolic blood 2022-01-13 03:00:00 134 mm[Hg] Univer sity of pressure [facility] Diastolic blood 2022-01-13 03:00:00 94 mm[Hg] Unive rsity of pressure [facility] Heart rate 2022-01-13 03:00:00 119 /min [facility] [place] [facility] Respiratory rate 2022-01-13 03:00:00 18 /min Univ ersity of [place] [facility] Oxygen saturation in 2022-01-13 03:00:00 91 /min [facility] Arterial blood by [place] [facility] Pulse oximetry Branch Body temperature 2022-01-12 22:31:00 36.94 Laly Univ ersity of [facility] Body height 2022-01-12 22:31:00 154.9 cm [facility] [place] [facility] Body weight 2022-01-12 22:31:00 104.327 kg [facility] [place] [facility] BMI 2022-01-12 22:31:00 43.46 kg/m2 [facility] [place] [facility] Systolic blood 2022-01-12 17:00:00 135 mm[Hg] Univer sity of pressure [facility] Diastolic blood 2022-01-12 17:00:00 65 mm[Hg] Unive rsity of pressure [facility] Heart rate 2022-01-12 17:00:00 108 /min [facility]i ty [facility] [place] [facility] Respiratory rate 2022-01-12 17:00:00 20 /min Univ ersity of [facility] Oxygen saturation in 2022-01-12 17:00:00 92 /min University of Arterial blood by [place] [facility] Pulse oximetry Branch Body temperature 2022-01-12 09:00:00 36.22 L[place] Univ ersity of [facility] Body weight 2022-01-03 17:00:00 104.32 kg [facility]i ty [facility] BMI 2022-01-03 17:00:00 43.46 kg/m2 [facility] Body height 2022-01-02 09:20:00 154.9 cm [facility] Systolic blood 2021-12-09 05:00:00 123 mm[Hg] Univer sity of pressure [facility] Diastolic blood 2021-12-09 05:00:00 66 mm[Hg] Unive rsity of pressure [facility] Heart rate 2021-12-09 05:00:00 96 /min [facility]i ty [facility] Respiratory rate 2021-12-09 05:00:00 13 /min Univ ersity of [facility] Oxygen saturation in 2021-12-09 05:00:00 96 /min University of Arterial blood by [place] [facility] Pulse oximetry Branch Body temperature 2021-12-09 03:35:00 35.94 L[place] Univ ersity of [facility] Body height 2021-12-09 03:35:00 154.9 cm [facility] Body weight 2021-12-09 03:35:00 104.327 kg [facility] BMI 2021-12-09 03:35:00 43.46 kg/m2 [facility] Systolic blood 2021-09-23 20:00:00 141 mm[Hg] Univer sity of pressure [facility] Diastolic blood 2021-09-23 20:00:00 83 mm[Hg] [facility] Heart rate 2021-09-23 20:00:00 98 /min [facility] Respiratory rate 2021-09-23 20:00:00 16 /min [facility] Oxygen saturation in 2021-09-23 20:00:00 97 /min [facility] Arterial blood by [facility] Pulse oximetry [place] Body temperature 2021-09-23 18:00:00 36.61 Laly [facility] height 2021-09-22 21:50:00 154.9 cm [facility] Body weight 2021-09-22 21:50:00 104.3 kg [facility] BMI 2021-09-22 21:50:00 43.45 kg/m2 [facility] Procedures Procedure Date / Time Performing Clinician Source Performed TROPONIN I 2022-09-09 13:20:00 Joslyn Ruelas [facility] COMP. METABOLIC PANEL 2022-09-09 13:20:00 Joslyn Ruelas [facility] ([id number]) [facility] CBC WITH DIFF 2022-09-09 13:20:00 Joslyn Ruelas [facility] RAPID INFLUENZA A/B 2022-09-09 13:20:00 [facility] N-TERMINAL PRO-BNP 2022-09-09 13:20:00 [facility] COVID-19 (ID NOW RAPID 2022-09-09 13:20:00 Joslyn Ruelas [facility] CONSENT/REFUSAL FOR 2022-09-09 12:19:48 Doctor Unassigned, [facility] DIAGNOSIS AND TREATMENT [facility] [place] POCT GLUCOSE (AUTOMATED) 2022-08-10 17:15:00 [facility] ([facility]) 2022-08-10 13:45:00 [facility] ([facility]OMATED) 2022-08-10 09:17:00 [facility] (AUTOMATED) 2022-08-10 06:01:00 [facility] PO[facility]SE (AUTOMATED) 2022-08-10 02:09:00 Jonas Hernandez [place] versity [facility] POCT GLUCOSE (AUTOMATED) 2022-08-09 22:26:00 Jonas Hernandez [facility] XR CHEST 1 VW 2022-08-09 19:47:37 [facility] 2022-08-09 14:07:17 Carlos [facility] POCT GLUCOSE (AUTOMATED) 2022-08-09 13:17:00 [facility] PHOS[facility]US 2022-08-09 11:24[facility] 2022-08-09 11:24:00 Carlos [facility] BASIC METABOLIC PANEL 2022-08-09 11:24:00 Corey Gonzalez [facility] (NA, K, CL, CO2, GLUCOSE, Medica l Branch BUN, CREATININE, CA) CBC WITH DIFF 2022-08-09 11:24:00 Carlos [facility] POCT GLUCOSE (AUTOMATED) 2022-08-09 11:22:00 [facility]SE (AUTOMATED) 2022-08-09 06:16:00 Jonas Hernandez Uni versity [facility] [place] POCT GLUCOSE (AUTOMATED) 2022-08-09 02:24:00 Jonas Hernandez Uni [facility]ity [facility] [place] POCT GLUCOSE (AUTOMATED) 2022-08-08 22:31:00 Jonas Hernandez [place] [facility] POCT GLUCOSE (AUTOMATED) 2022-08-08 17:30:00 Jonas Hernandez [place] [facility] POCT GLUCOSE (AUTOMATED) 2022-08-08 13:20:00 Jonas Hernandez [place] [facility] POCT GLUCOSE (AUTOMATED) 2022-08-08 09:51:00 Jonas Hernandez [place] [facility] POCT GLUCOSE (AUTOMATED) 2022-08-08 06:10:00 Jonas Hernandez [place] [facility]ATED[facility] 2022-08-08 02:37:00 Jonas Hernandez [place] [facility] POCT GLUCOSE (AUTOMATED) 2022-08-07 22:16:00 Jonas Hernandez [place] [facility] POCT GLUCOSE (AUTOMATED) 2022-08-07 17:26:00 Jonas Hernandez [place] [facility] TRANSTHORACIC ECHO (TTE) 2022-08-07 16:31:00 Stella Ivory [facility] COMPLETE W/ CONTRAST Medical [facility] POCT GLUCOSE (AUTOMATED) 2022-08-07 13:42:00 Jonas Hernandez [place] [facility] PHOSPHORUS 2022-08-07 11:00:00 Corey Gonzalez [facility] MAGNESIUM 2022-08-07 11:00:00 Corey Gonzalez [facility] BILI UNCONJUGATED/BILI 2022-08-07 11:00:00 Corey Gonzalez [facility] TROPONIN I 2022-08-07 11:00:00 Corey Gonzalez [facility] THYROID STIMULATING 2022-08-07 11:00:00 Corey Gonzalez [facility] HORMONE [facility] COMP. METABOLIC PANEL 2022-08-07 11:00:00 Jonas Hernandez [facility] ([id number]) [facility] CBC WITH DIFF 2022-08-07 11:00:00 Corey Gonzalez [facility] N-TERMINAL PRO-BNP 2022-08-07 11:00:00 Corey Gonzalez [facility] ACUTE CARE VENOUS BLOOD 2022-08-07 10:59:00 Jonas Hernandez [facility] POCT GLUCOSE (AUTOMATED) 2022-08-07 10:17:00 Jonas Hernandez [facility] POCT GLUCOSE (AUTOMATED) 2022-08-07 05:38:00 Jonas Hernandez [facility] POCT GLUCOSE (AUTOMATED) 2022-08-07 02:06:00 Jonas Hernandez [facility] POCT GLUCOSE (AUTOMATED) 2022-08-06 22:27:00 Jonas Hernandez [facility] POCT GLUCOSE (AUTOMATED) 2022-08-06 17:15:00 Jonas Hernandez [facility] CT THORAX W CONTRAST 2022-08-06 16:53:51 Anish Walters [facility] CORTISOL AM 2022-08-06 13:33:00 Mary agus [facility] CBC WITH DIFF 2022-08-06 13:33:00 [facility] LACTIC ACID WHOLE BLOOD 2022-08-06 13:33:00 Jonas Hernandez [facility] POCT GLUCOSE (AUTOMATED) 2022-08-06 13:27:00 Mary agus [facility] POCT GLUCOSE (AUTOMATED) 2022-08-06 10:37:00 Jonas Hernandez [facility] PHOSPHORUS 2022-08-06 10:25:00 Jonas Hernandez [facility] CREATINE KINASE 2022-08-06 10:25:00 Jonas Hernandez [facility] MAGNESIUM 2022-08-06 10:25:00 Mary agus [facility] TROPONIN I 2022-08-06 10:25:00 Mary agus [facility] COMP. METABOLIC PANEL 2022-08-06 10:25:00 [id number] ACUTE CARE VENOUS BLOOD 2022-08-06 10:25:00 Jonas Hernandez [facility] N-TERMINAL PRO-BNP 2022-08-06 10:25:00 Jonas Hernandez [facility] POCT GLUCOSE (AUTOMATED) 2022-08-06 06:54:00 Jonas Hernandez [facility] POCT GLUCOSE (AUTOMATED) 2022-08-06 02:30:00 Jonas Hernandez [facility] POCT GLUCOSE (AUTOMATED) 2022-08-05 22:59:00 Jonas Hernandez [facility] TROPONIN I 2022-08-05 22:00:00 Jonas Hernandez [facility] URINALYSIS 2022-08-05 21:45:00 Carlos [facility] URINE CULTURE 2022-08-05 21:45:00 Carlos [facility] POCT GLUCOSE (AUTOMATED) 2022-08-05 17:53:00 Jonas Hernandez [facility] POCT GLUCOSE (AUTOMATED) 2022-08-05 13:19:00 Jonas Hernandez [facility] XR CHEST 1 VW 2022-08-05 12:59:00 Mary agus [facility] LEGIONELLA URINARY 2022-08-05 11:12:00 Jonas Hernandez [facility] RESPIRATORY PANEL BY PCR 2022-08-05 11:12:00 Jonas Hernandez [facility] URINE CULTURE 2022-08-05 11:11:00 Jonas Hernandez [facility] SODIUM, URINE RANDOM 2022-08-05 11:11:00 Jonas Hernandez [facility] PNEUMOCOCCAL ANTIGEN 2022-08-05 11:11:00 Jonas Hernandez [facility] PROTEIN CREAT RATIO URINE 2022-08-05 11:11:00 Jonas Hernandez [facility] OSMOLALITY URINE 2022-08-05 11:10:00 Mary [facility] MRSA / MSSA SCREEN BY 2022-08-05 11:09:00 Jonas Hernandez [facility] PCR, NARES [facility] PHOSPHORUS 2022-08-05 11:08:00 Mary agus [facility] CREATINE KINASE 2022-08-05 11:08:00 Mary agus [facility] MAGNESIUM 2022-08-05 11:08:00 Mary agus [facility] TROPONIN I 2022-08-05 11:08:00 [facility] COMP. METABOLIC PANEL 2022-08-05 11:08:00 Mary agus [facility] ([id number]) [facility] LIPID PANEL ([id number])(TOTAL 2022-08-05 11:08:00 Jonas Hernandez [facility] CHOLESTEROL, [facility] TRIGLYCERIDES, HDL) SEDIMENTATION RATE 2022-08-05 11:08:00 Jonas Hernandez [facility] GLYCOSYLATED HEMOGLOBIN 2022-08-05 11:08:00 Mary agus [facility] (A1C) [facility] URINALYSIS 2022-08-05 11:08:00 Mary [facility] MYCOPLASMA PNEUMONIAE 2022-08-05 11:08:00 Jonas Hernandez [facility] ANTIBODY, IGM [facility] N-TERMINAL PRO-BNP 2022-08-05 11:08:00 Mary agus [facility] PROCALCITONIN 2022-08-05 11:08:00 Mary agus [facility] AC PANEL 20 + LACTIC ACID 2022-08-05 10:56:00 Jonas Hernandez [facility] ASSIGNMENT OF BENEFITS 2022-08-05 06:59:31 Doctor Unassigned, [facility] Name Medical [place] CONSENT/REFUSAL FOR 2022-08-05 06:58:52 Doctor Unassigned, [facility] DIAGNOSIS AND TREATMENT [facility] [place] XR CHEST 1 VW 2022-06-05 04:10:06 Singer Gen [facility] TROPONIN I 2022-06-05 03:21:00 Singer [facility] COMP. METABOLIC PANEL 2022-06-05 03:21:00 Gen Acevedo [facility] ([id number]) [facility] CBC WITH DIFF 2022-06-05 03:21:00 Singer [facility] RAPID INFLUENZA A/B 2022-06-05 03:21:00 Gen Acevedo [facility] N-TERMINAL PRO-BNP 2022-06-05 03:21:00 Singer Gen [facility] COVID-19 (ID NOW RAPID 2022-06-05 03:21:00 Gen Acevedo [facility] TESTING) Medical Branch CONSENT/REFUSAL FOR 2022-06-05 02:20:45 Doctor Unassigned [facility] DIAGNOSIS AND TREATMENT [facility] TROPONIN I 2022-05-13 07:08:00 Paula Rowe [facility] CT CHEST PULMONARY 2022-05-13 06:13:34 Paula Rowe [facility] ANGIOGRAM Medical Branch XR CHEST 1 VW 2022-05-13 04:42:45 Paula Rowe [facility] BLOOD CULTURE SCREEN 2022-05-13 04:10:00 Paula Rowe [facility] TROPONIN I 2022-05-13 04:10:00 Jae Paula [facility] COMP. METABOLIC PANEL 2022-05-13 04:10:00 Paula Rowe [facility] ([id number]) [facility] CBC WITH DIFF 2022-05-13 04:10:00 Paula Rowe [facility] PROTHROMBIN TIME / INR 2022-05-13 04:10:00 Paula Rowe [facility] ACTIVATED PARTIAL 2022-05-13 04:10:00 Paula Rowe [facility] RAP[facility] INFLUENZA A/B 2022-05-13 04:10:00 Paula Rowe [facility] N-TERMINAL PRO-BNP 2022-05-13 04:10:00 Paula Rowe [facility] COVID-19 (ID NOW RAPID 2022-05-13 04:10:00 Paula Rowe [facility] TESTING) Medical [place] AC PANEL 21 + LACTIC ACID 2022-05-02 06:08:00 [facility] 2022-05-02 05:52:00 Sanjay Henry Janel [facility] URINALYSIS 2022-05-02 05:44:00 Sanjay Henry [facility] MAGNESIUM 2022-05-02 05:43:00 Sanjay Henry Janel [facility] TROPONIN I 2022-05-02 05:43:00 Sanjay Henry Janel [facility] COMP. METABOLIC PANEL 2022-05-02 05:43:00 Sanjay Henry [facility] ([id number]) [facility] CBC WITH DIFF 2022-05-02 05:43:00 Sanjay Henry Janel [facility] N-TERMINAL PRO-BNP 2022-05-02 05:43:00 Sanjay Henry [facility] CONSENT/REFUSAL FOR 2022-05-02 05:16:55 Doctor Unassigned, [facility] DIAGNOSIS AND TREATMENT [facility] COVID-19 (ID NOW RAPID 2022-04-29 03:43:00 Paula Rowe [facility] TESTING) [facility] CT ABDOMEN PELVIS WO 2022-04-29 03:38:06 Paula Rowe [facility] CONTRAST [facility] XR CHEST 1 VW 2022-04-29 03:23:24 Paula Rowe [facility] TROPONIN I 2022-04-29 02:49:00 Paula Rowe [facility] COMP. METABOLIC PANEL 2022-04-29 02:49:00 Puala Rowe [facility] ([id number]) [facility] CBC WITH DIFF 2022-04-29 02:49:00 Paula Rowe [facility] PROTHROMBIN TIME / INR 2022-04-29 02:49:00 Paula Rowe [facility] acute hospital ACTIVATED PARTIAL 2022-04-29 02:49:00 Paula Rowe [facility] THRMPLAS SHREYA [facility] N-TERMINAL PRO-BNP 2022-04-29 02:49[facility] 2022-02-27 20:30:00 Yasmine Kevin Rinaldi [facility] POCT GLUCOSE (AUTOMATED) 2022-02-27 16:16:00 Yasmine Kevin Rinaldi [facility] POCT GLUCOSE (AUTOMATED) 2022-02-27 12:27:00 Yasmine Kevin [facility] POCT GLUCOSE (AUTOMATED) 2022-02-26 21:42:00 Yasmine Kevin Rinaldi [facility] POCT GLUCOSE (AUTOMATED) 2022-02-26 17:49:00 Yasmine Kevin [facility] POCT GLUCOSE (AUTOMATED) 2022-02-26 14:27:00 Yasmine Kevin [facility] MAGNESIUM 2022-02-26 08:50:00 Michael [facility] BASIC METABOLIC PANEL 2022-02-26 08:50:00 Michael [facility] (NA, K, CL, CO2, GLUCOSE, Medica l Branch BUN, CREATININE, CA) POCT GLUCOSE (AUTOMATED) 2022-02-26 01:26:00 Yasmine Kevin [facility] POCT GLUCOSE (AUTOMATED) 2022-02-25 20:40:00 Yasmine Kevin [facility] POCT GLUCOSE (AUTOMATED) 2022-02-25 16:39:00 Yasmine Kevin [facility] ACUTE CARE ARTERIAL BLOOD 2022-02-25 14:04:00 [facility] 2022-02-25 12:51:00 Yasmine Kevin [facility] PHOSPHORUS 2022-02-25 11:01:00 Lisa Fritz [facility] MAGNESIUM 2022-02-25 11:01:00 Lam [facility] BASIC METABOLIC PANEL 2022-02-25 11:01:00 Lisa Fritz [facility] (NA, K, CL, CO2, GLUCOSE, Medica l Branch BUN, CREATININE, CA) POCT GLUCOSE (AUTOMATED) 2022-02-25 01:24:00 Yasmine Kevin [facility] POCT GLUCOSE (AUTOMATED) 2022-02-24 20:49:00 Yasmine Kevin [facility] POCT GLUCOSE (AUTOMATED) 2022-02-24 16:52:00 Yasmine Kevin Rinaldi [facility] ACUTE CARE ARTERIAL BLOOD 2022-02-24 16:42:00 Isma Cortez [facility] POCT GLUCOSE (AUTOMATED) 2022-02-24 13:24:00 Yasmine Kevin [facility] TROPONIN I 2022-02-24 12:34:00 Lam [facility] BASIC METABOLIC PANEL 2022-02-24 12:34:00 [facility] ([facility], K, CL, CO2, GLUCOSE, Medica l Branch BUN, CREATININE, CA) HB ECG ROUTINE & RHYTHM 2022-02-24 12:23:17 Lam [facility] LACTIC ACID WHOLE BLOOD 2022-02-24 03:13:00 Britt Gabriel [facility] POCT GLUCOSE (AUTOMATED) 2022-02-24 01:20:00 Yasmine Kevin [facility] XR KUB 2022-02-24 00:31:00 [facility] POCT GLUCOSE (AUTOMATED) 2022-02-23 22:34:00 Yasmine Kevin [facility] POCT GLUCOSE (AUTOMATED) 2022-02-23 21:46:00 Yasmine Kevin [facility] XR CHEST 1 VW 2022-02-23 19:26:00 Dana [facility] AC PANEL 20 + LACTIC ACID 2022-02-23 18:02:00 Isma Cortez [facility] POCT GLUCOSE (AUTOMATED) 2022-02-23 17:19:00 Yasmine Kevin [facility] POCT GLUCOSE (AUTOMATED) 2022-02-23 13:22:00 Yasmine Kevin [facility] POCT GLUCOSE (AUTOMATED) 2022-02-22 21:55:00 Kevin Lebron [facility] POCT GLUCOSE (AUTOMATED) 2022-02-22 18:22:00 Kevin Lebron [facility] CBC WITH DIFF 2022-02-22 11:32:00 Joshua [facility] MAGNESIUM 2022-02-22 11:31:00 Joshua [facility] BASIC METABOLIC PANEL 2022-02-22 11:31:00 Joshua [facility] (NA, K, CL, CO2, GLUCOSE, Medica l Branch BUN, CREATININE, CA) XR CHEST 1 VW 2022-02-22 09:34:00 Joshua [facility] POCT GLUCOSE (AUTOMATED) 2022-02-22 01:20:00 Kevin Lebron [facility] POCT GLUCOSE (AUTOMATED) 2022-02-21 21:53:00 Kevin Lebron [facility] CBC WITHOUT DIFF 2022-02-21 15:46:00 Britt Gabriel [facility] POCT GLUCOSE (AUTOMATED) 2022-02-21 14:26:00 Kevin Lebron [facility] URINALYSIS 2022-02-21 08:27:00 Joshua [facility] URINE CULTURE 2022-02-21 08:27:00 Joshua [facility] MAGNESIUM 2022-02-21 08:06:00 Joshua [facility] BASIC METABOLIC PANEL 2022-02-21 08:06:00 [facility] (NA, K, CL, CO2, GLUCOSE, Medica l Branch BUN, CREATININE, CA) CBC WITH DIFF 2022-02-21 08:06:00 Joshua [facility] MRSA / MSSA SCREEN BY 2022-02-21 03:21:00 Chase Ny [facility] PCR, [facility] POCT GLUCOSE (AUTOMATED) 2022-02-21 02:31:00 Kevin Lebron [facility] BLOOD CULTURE SCREEN 2022-02-21 01:58:00 Candi Lewis [facility] BLOOD CULTURE SCREEN 2022-02-21 01:49:00 Candi Lewis [facility] XR CHEST 1 VW 2022-02-20 23:44:00 Kevin [facility] ACUTE CARE ARTERIAL BLOOD 2022-02-20 23:23:00 [facility] XR CHEST 1 VW 2022-02-20 20:39:00 Paula Rowe [facility] TROPONIN I 2022-02-20 20:17:00 Paula Rowe [facility] COMP. METABOLIC PANEL 2022-02-20 20:17:00 Paula Rowe [facility] ([id number]) Medical [place] CBC WITH DIFF 2022-02-20 20:17:00 Jae Paula [facility] PROTHROMBIN TIME / INR 2022-02-20 20:17:00 Paula Rowe [facility] acute hospital ACTIVATED PARTIAL 2022-02-20 20:17:00 [facility] N-TERMINAL PRO-BNP 2022-02-20 20:17:00 Paula Rowe [facility] COVID-19 (ID NOW RAPID 2022-02-20 20:07:00 Paula Rowe [facility] TESTING) Medical Branch LAB ONLY COVID 2022-02-20 20:07:00 Paula Rowe [facility] INTERPRETATION [facility] HB ECG ROUTINE & RHYTHM 2022-02-20 20:06:49 Paula Rowe [facility] STRIP Medical Branch CONSENT/REFUSAL FOR 2022-02-20 19:58:43 Doctor Arturo [facility] DIAGNOSIS AND TREATMENT [facility] [place] EMERGENCY DEPARTMENT 2022-02-20 05:01:00 Doctor Arturo, [facility] DOCUMENTS [facility] [place] HOSPITAL ADMISSION 2022-02-20 05:01:00 Doctor Arturo [facility] Name Medical Branch POCT GLUCOSE (AUTOMATED) 2022-02-17 21:44:00 Valeriano Pantoja [facility] POCT GLUCOSE (AUTOMATED) 2022-02-17 17:09:00 Terminella, Valeriano [facility] [place] POCT GLUCOSE (AUTOMATED) 2022-02-17 13:06:00 Terminella, Valeriano [facility] [place] XR CHEST 1 VW 2022-02-17 11:51:08 Nathaniel [facility] MAGNESIUM 2022-02-17 09:13:00 Nathaniel [facility] BASIC METABOLIC PANEL 2022-02-17 09:13:00 Kayla Armstrong [facility] (NA, K, CL, CO2, GLUCOSE, Medica l Branch BUN, CREATININE, CA) CBC WITH DIFF 2022-02-17 09:13:00 Nathaniel [facility] ACUTE CARE ARTERIAL BLOOD 2022-02-17 09:02:00 Kayla Armstrong [facility] POCT GLUCOSE (AUTOMATED) 2022-02-17 00:49:00 Terminella, Valeriano [facility] XR CHEST 1 VW 2022-02-16 23:15:00 Roberto [facility] [place] POCT GLUCOSE (AUTOMATED) 2022-02-16 21:46:00 Terminella, Valeriano [facility] POCT GLUCOSE (AUTOMATED) 2022-02-16 16:59:00 Terminella, Valeriano [facility] POCT GLUCOSE (AUTOMATED) 2022-02-16 13:05:00 Terminella, Valeriano [facility] POCT GLUCOSE (AUTOMATED) 2022-02-16 08:32:00 Terminella, Valeriano [facility] POCT GLUCOSE (AUTOMATED) 2022-02-16 04:29:00 Terminella, Valeriano [facility] POCT GLUCOSE (AUTOMATED) 2022-02-16 00:39:00 Terminella, Valeriano [facility] POCT GLUCOSE (AUTOMATED) 2022-02-15 21:14:00 Terminella, Valeriano [facility] POCT GLUCOSE (AUTOMATED) 2022-02-15 16:58:00 Terminella, Valeriano [facility] POCT GLUCOSE (AUTOMATED) 2022-02-15 12:45:00 Terminella, Valeriano [facility] POCT GLUCOSE (AUTOMATED) 2022-02-15 08:02:00 Terminella, Valeriano [facility] MAGNESIUM 2022-02-15 07:56:00 Roberto Murdock [facility] COMP. METABOLIC PANEL 2022-02-15 07:56:00 Roberto Murdock [facility] ([id number]) [facility] CBC WITHOUT DIFF 2022-02-15 07:56:00 Roberto Murdock [facility] POCT GLUCOSE (AUTOMATED) 2022-02-15 04:15:00 Terminella, Valeriano [facility] POCT GLUCOSE (AUTOMATED) 2022-02-15 00:48:00 Terminella, Valeriano [facility] POCT GLUCOSE (AUTOMATED) 2022-02-14 21:22:00 Terminella, Valeriano [facility] POCT GLUCOSE (AUTOMATED) 2022-02-14 19:37:00 Terminella, Valeriano [facility] POCT GLUCOSE (AUTOMATED) 2022-02-14 16:28:00 Terminella, Valeriano [facility] POCT GLUCOSE (AUTOMATED) 2022-02-14 14:17:00 Terminella, Valeriano [facility] XR CHEST 1 VW 2022-02-14 11:42:00 Kayla Armstrong [facility] MAGNESIUM 2022-02-14 09:56:00 Kayla Armstrong [facility] COMP. METABOLIC PANEL 2022-02-14 09:56:00 Kayla Armstrong [facility] ([id number]) [facility] CBC WITH DIFF 2022-02-14 09:56:00 Kayla Armstrong [facility] ACUTE CARE ARTERIAL BLOOD 2022-02-14 08:33:00 Kayla Armstrong [facility] POCT GLUCOSE (AUTOMATED) 2022-02-14 08:17:00 Terminella, Valeriano [facility] POCT GLUCOSE (AUTOMATED) 2022-02-14 04:25:00 [facility] 2022-02-14 04:11:18 Doctor Unassigned, [facility] POCT GLUCOSE (AUTOMATED) 2022-02-14 00:55:00 Terminella[facility] ([facility]OMATED) 2022-02-13 22:29:00 Terminella, Valeriano [facility] PO[facility]SE (AUTOMATED) 2022-02-13 17:29:00 Terminella, Valeriano [facility] PO[facility] GLU[facility]SE (AUTOMATED) 2022-02-13 15:52:00 TerminellaYvonneValeriano [facility] ARTERIAL BLOOD 2022-02-13 14:22:00 [facility] POCT GLUCOSE (AUTOMATED) 2022-02-13 14:07:00 TerminellaYvonneValeriano U [facility] DUPLEX VENOUS LEGS 2022-02-13 14:00:43 Roberto Murdock [facility] BILATERAL - BY VASCULAR [facility] LAB POCT GLUCOSE (AUTOMATED) 2022-02-13 12:45:00 Terminella, [facility]iano [facility] PO[facility]SE (AUTOMATED) 2022-02-13 11:43:00 TerminJanuary alstoni [facility] MAGNES[facility]UM 2022-02-13 10:33:00 [facility] BASIC METABOLIC PANEL 2022-02-13 10:33:00 Roberto Murdock Un [facility] (NA, K, CL, CO2, GLUCOSE, Medica l Branch BUN, CREATININE, CA) CBC WITH DIFF 2022-02-13 10:33:00 Valeriano Pantoja [facility] POCT GLUCOSE (AUTOMATED) 2022-02-13 09:42:00 Terminella, Valeriano [facility] PO[facility] GLUCOSE (AUTOMATED) 2022-02-13 08:46:00 Terminella, Valeriano [facility] POCT GLUCOSE (AUTOMATED) 2022-02-13 07:59:00 Terminella, Valeriano [facility] POCT GLUCOSE (AUTOMATED) 2022-02-13 06:56:00 Terminella, Valeriano [facility] POCT GLUCOSE (AUTOMATED) 2022-02-13 05:57:00 Terminella, Valeriano [facility] POCT GLUCOSE (AUTOMATED) 2022-02-13 03:36:00 Terminella, Valeriano [facility] BASIC METABOLIC PANEL 2022-02-13 03:30:00 Murdock, Roberto [facility] [place] (NA, K, CL, CO2, GLUCOSE, Medica l Branch BUN, CREATININE, CA) POCT GLUCOSE (AUTOMATED) 2022-02-13 02:46:00 Terminella, Valeriano [facility] POCT GLUCOSE (AUTOMATED) 2022-02-13 01:37:00 Terminella, Valeriano [facility] POCT GLUCOSE (AUTOMATED) 2022-02-13 00:34:00 Terminella, Valeriano [facility] POCT GLUCOSE (AUTOMATED) 2022-02-12 23:25:00 Terminella, Valeriano [facility] POCT GLUCOSE (AUTOMATED) 2022-02-12 22:20:00 Terminella, Valeriano [facility] POCT GLUCOSE (AUTOMATED) 2022-02-12 21:02:00 Terminella, Valeriano [facility] BASIC METABOLIC PANEL 2022-02-12 20:39:00 MurdockAshleyo [facility] [place] (NA, K, CL, CO2, GLUCOSE, Medica l Branch BUN, CREATININE, CA) POCT GLUCOSE (AUTOMATED) 2022-02-12 20:02:00 Terminella, Valeriano [facility] POCT GLUCOSE (AUTOMATED) 2022-02-12 19:06:00 Terminella, Valeriano [facility] POCT GLUCOSE (AUTOMATED) 2022-02-12 18:09:00 Terminella, Valeriano U [facility] POCT GLUCOSE (AUTOMATED) 2022-02-12 17:17:00 Terminella, Valeriano U [facility] SPUTUM CULTURE 2022-02-12 16:29:00 Termingamaliel [facility] BASIC METABOLIC PANEL 2022-02-12 16:16:00 Kayla Armstrong [facility] (NA, K, CL, CO2, GLUCOSE, Medica l Branch BUN, CREATININE, CA) POCT GLUCOSE (AUTOMATED) 2022-02-12 16:11:00 Terminella, Valeriano U [facility] POCT GLUCOSE (AUTOMATED) 2022-02-12 14:14:00 Terminella, Valeriano U [facility] POCT GLUCOSE (AUTOMATED) 2022-02-12 13:17:00 TerminellaYvonneValeriano U [facility] [facility] POCT GLUCOSE (AUTOMATED) 2022-02-12 12:42:00 TerminellaYvonneValeriano U [facility] BASIC METABOLIC PANEL 2022-02-12 12:18:00 [facility] (NA, K, CL, CO2, GLUCOSE, Medica l Branch BUN, CREATININE, CA) POCT GLUCOSE (AUTOMATED) 2022-02-12 12:17:00 Terminella, [facility]SE (AUTOMATED) 2022-02-12 11:15:00 TerminellaYvonneValeriano U [facility] POCT GLUCOSE (AUTOMATED) 2022-02-12 10:12:00 Terminella [facility] PO[facility]UCOSE (AUTOMATED) 2022-02-12 09:12:00 Terminnyu langone [facility], Valeriano U [facility] MRSA / MSSA SCREEN BY 2022-02-12 08:23:00 Terminnyu langone [facility], [facility] PCR, [facility] AC PANEL 20 + LACTIC ACID 2022-02-12 08:22:00 Scarlett [facility] PHOSPHORUS 2022-02-12 08:21:00 Termingamaliel [facility] MAGNESIUM 2022-02-12 08:21:00 [facility] OSMOLALITY, SERUM OR 2022-02-12 08:21:00 Nareshnyu langone [facility] PLASMA [facility] BETA HYDROXY-BUTYRATE 2022-02-12 08:21:00 [facility] BASIC METABOLIC PANEL 2022-02-12 08:21:00 [facility] (NA, K, CL, CO2, GLUCOSE, Medica l Branch BUN, CREATININE, CA) CBC WITH DIFF 2022-02-12 08:21:00 [facility] GLYCOSYLATED HEMOGLOBIN 2022-02-12 08:21:00 Nareshnyu langone [facility] POCT GLUCOSE (AUTOMATED) 2022-02-12 04:53:00 Paula Rowe [facility] URINE DRUG (IMMUNOASSAY) 2022-02-12 04:24:00 Paula Rowe [facility] DRUG [facility] nc SCREEN W/O REFLEX URINALYSIS 2022-02-12 04:23:00 Paula Rowe [facility] POCT GLUCOSE (AUTOMATED) 2022-02-12 04:12:00 Paula Rowe [facility] CT CHEST PULMONARY 2022-02-12 02:41:40 Paula Rowe [facility] ANGIOGRAM Medical [place] CT ABDOMEN PELVIS W 2022-02-12 02:39:36 Paula Rowe [facility] CONTRAST [facility] CT HEAD WO CONTRAST 2022-02-12 02:39:36 Paula Rowe [facility] XR CHEST 1 VW 2022-02-12 02:08:38 Paula Rowe [facility] AC PANEL 20 + LACTIC ACID 2022-02-12 01:59:00 Paula Rowe [facility] AMMONIA, PLASMA 2022-02-12 01:18:00 Paula Rowe [facility] BLOOD CULTURE SCREEN 2022-02-12 01:16:00 Paula Rowe [facility] COVID-19 (ID NOW RAPID 2022-02-12 01:16:00 Paula Rowe [facility] TESTING) [facility] LAB ONLY COVID 2022-02-12 01:16:00 Paula Rowe [facility] INTERPRETATION [facility] BLOOD CULTURE SCREEN 2022-02-12 01:12:00 Paula Rowe [facility] TROPONIN I 2022-02-12 01:12:00 Paula Rowe [facility] FREE T4 2022-02-12 01:12:00 Paula Rowe [facility] THYROID STIMULATING 2022-02-12 01:12:00 Paula Rowe [facility] HORMONE [facility] COMP. METABOLIC PANEL 2022-02-12 01:12:00 Paula Rowe [facility] ([id number]) Medical Branch ETHANOL 2022-02-12 01:12:00 Paula Rowe [facility] CBC WITH DIFF 2022-02-12 01:12:00 Paula Rowe [facility] PROTHROMBIN TIME / INR 2022-02-12 01:12:00 Paula Rowe [facility] ACTIVATED PARTIAL 2022-02-12 01:12:00 Paula Rowe [facility] THRMPLAS SHREYA [facility] N-TERMINAL PRO-BNP 2022-02-12 01:12:00 [facility] 2022-02-12 01:06:16 Doctor Unassigned, [facility] Medical [place] POCT GLUCOSE (AUTOMATED) 2022-02-12 00:57:00 Paula Rowe [facility] ASSIGNMENT OF BENEFITS 2022-02-12 00:53:44 Doctor Unassigned, [facility] [place] CONSENT/REFUSAL FOR 2022-02-12 00:53:30 Doctor Unassigned, [facility] DIAGNOSIS AND TREATMENT [facility] [place] EMERGENCY DEPARTMENT 2022-02-11 05:01:00 Doctor Unassigned, [facility] DOCUMENTS [facility] [place] POCT GLUCOSE (AUTOMATED) 2022-01-31 16:09:00 Jonas Hernandez [facility] POCT GLUCOSE (AUTOMATED) 2022-01-31 12:37:00 Jonas Hernandez [facility] PHOSPHORUS 2022-01-31 09:02:00 Luz Maria [facility] MAGNESIUM 2022-01-31 09:02:00 Luz Maria [facility] BASIC METABOLIC PANEL 2022-01-31 09:02:00 Luz Maria [facility] (NA, K, CL, CO2, GLUCOSE, Medica l Branch BUN, CREATININE, CA) ACUTE CARE VENOUS BLOOD 2022-01-31 09:02:00 Luz Maria [facility] N-TERMINAL PRO-BNP 2022-01-31 09:02:[address] [facility] POCT GLUCOSE (AUTOMATED) 2022-01-30 21:20:00 Jonas Hernandez [facility] POCT GLUCOSE (AUTOMATED) 2022-01-30 16:58:00 Jonas Hernandez [facility] POCT GLUCOSE (AUTOMATED) 2022-01-30 13:58:00 Jonas Hernandez [facility] POCT GLUCOSE (AUTOMATED) 2022-01-30 13:11:00 Jonas Hernandez [facility] COMP. METABOLIC PANEL 2022-01-30 09:22:00 Jonas Hernandez [facility] ([id number]) [facility] CBC WITH DIFF 2022-01-30 09:22:00 Luz Maria [facility] N-TERMINAL PRO-BNP 2022-01-30 09:22:00 Jonas Hernandez [facility] ACUTE CARE VENOUS BLOOD 2022-01-30 09:21:00 Jonas Hernandez [facility] POCT GLUCOSE (AUTOMATED) 2022-01-30 03:01:00 Jonas Hernandez [facility] POCT GLUCOSE (AUTOMATED) 2022-01-29 21:03:00 Jonas Hernandez [facility] POCT GLUCOSE (AUTOMATED) 2022-01-29 16:05:00 Jonas Hernandez [facility] POCT GLUCOSE (AUTOMATED) 2022-01-29 15:13:00 Jonas Hernandez [facility] SPUTUM CULTURE 2022-01-29 13:06:00 Luz Maria [facility] POCT GLUCOSE (AUTOMATED) 2022-01-29 12:46:00 Jonas Hernandez [facility] PHOSPHORUS 2022-01-29 09:33:00 Markus Loera [facility] MAGNESIUM 2022-01-29 09:33:00 Jonas Hernandez [facility] COMP. METABOLIC PANEL 2022-01-29 09:33:00 Jonas Hernandez [facility] ([id number]) [facility] CBC WITH DIFF 2022-01-29 09:33:00 Luz Maria [facility] N-TERMINAL PRO-BNP 2022-01-29 09:33:00 Jonas Hernandez [facility] ACUTE CARE VENOUS BLOOD 2022-01-29 09:32:00 Jonas Hernandez [facility] GAS [facility] POCT GLUCOSE (AUTOMATED) 2022-01-29 02:58:00 Jonas Hernandez [facility] POCT GLUCOSE (AUTOMATED) 2022-01-29 01:35:00 Jonas Hernandez [facility] POCT GLUCOSE (AUTOMATED) 2022-01-28 21:20:00 Jonas Hernandez [facility] XR CHEST 1 VW 2022-01-28 18:54:18 Markus Loera [facility] PROTEIN CREAT RATIO URINE 2022-01-28 16:54:00 Dilan Coffey [facility] URIC ACID 2022-01-28 16:49:00 Dilan Coffey [facility] TROPONIN I 2022-01-28 16:49:00 Mary agus [facility] TRANSTHORACIC ECHO (TTE) 2022-01-28 15:37:00 Jonas Hernandez [facility] COMPLETE W/ CONTRAST Medical [facility] DUPLEX VENOUS LEGS 2022-01-28 14:42:22 Jonas Hernandez [facility] BILATERAL - BY VASCULAR Medical Branch LAB POCT GLUCOSE (AUTOMATED) 2022-01-28 13:57:00 Jonas Hernandez [facility] POCT GLUCOSE (AUTOMATED) 2022-01-28 12:58:00 Jonas Hernandez [facility] TROPONIN I 2022-01-28 11:46:[address] [facility] IRON PANEL 2022-01-28 11:46:00 Jonas Hernandez [facility] SEDIMENTATION RATE 2022-01-28 11:46:00 Mary agus [facility] N-TERMINAL PRO-BNP 2022-01-28 11:46:[address] [facility] acute hospital PHOSPHORUS 2022-01-28 11:45:00 Mary [facility] CREATINE KINASE 2022-01-28 11:45:00 Mary [facility] URIC ACID 2022-01-28 11:45:00 Mary [facility] MAGNESIUM 2022-01-28 11:45:00 Mary [facility] FERRITIN SERUM 2022-01-28 11:45:00 Mary [facility] VITAMIN B12, LEVEL 2022-01-28 11:45:00 Mary [facility] TROPONIN I 2022-01-28 11:45:00 Mary agus [facility] THYROID STIMULATING 2022-01-28 11:45:00 Jonas Hernandez [facility] HORMONE [facility] COMP. METABOLIC PANEL 2022-01-28 11:45:00 Jonas Hernandez [facility] ([id number]) [facility] LIPID PANEL ([id number])(TOTAL 2022-01-28 11:45:00 Jonas Hernandez [facility] CHOLESTEROL, [facility] TRIGLYCERIDES, HDL) ACUTE CARE VENOUS BLOOD 2022-01-28 11:45:00 Jonas Hernandez [facility] GAS [facility] N-TERMINAL PRO-BNP 2022-01-28 11:45:00 Mary, [facility] VITAMIN D, 25-OH 2022-01-28 11:45:00 Mary [facility] PROCALCITONIN 2022-01-28 11:45:00 Mary agus [facility] OSMOLALITY URINE 2022-01-28 08:55:00 Mary [facility] URINALYSIS 2022-01-28 08:55:00 Mary [facility] URINE CULTURE 2022-01-28 08:55:00 Mary [facility] UREA NITROGEN, URINE 2022-01-28 08:55:00 Mary [facility] SODIUM, URINE RANDOM 2022-01-28 08:55:00 Mary [facility] PROTEIN CREAT RATIO URINE 2022-01-28 08:55:00 [facility]W 2022-01-28 02:23:00 Paula Rowe [facility] TROPONIN I 2022-01-28 02:09:00 Jae Paula [facility] COMP. METABOLIC PANEL 2022-01-28 02:09:00 Paula Rowe [facility] ([id number]) [facility] CBC WITH DIFF 2022-01-28 02:09:00 Paula Rowe [facility] GLYCOSYLATED HEMOGLOBIN 2022-01-28 02:09:00 Mary agus [facility] (A1C) [facility] PROTHROMBIN TIME / INR 2022-01-28 02:09:00 Paula Rowe [facility] acute hospital ACTIVATED PARTIAL 2022-01-28 02:09:00 Paula Rowe [facility] THRMPLAS SHREYA [facility] N-TERMINAL PRO-BNP 2022-01-28 02:09:00 Paula Rowe [facility] COVID-19 (ID NOW RAPID 2022-01-28 02:09:00 Paula Rowe [facility] TESTING) [facility] [place] LAB ONLY COVID 2022-01-28 02:09:00 Paula Rowe [facility] HB ECG ROUTINE & RHYTHM 2022-01-28 01:47:33 Paula Rowe [facility] NOTICE OF PRIVACY 2022-01-28 01:38:34 Doctor Unassigned, [facility] PRACTICES Cyrus [facility] CONSENT/REFUSAL FOR 2022-01-28 01:37:59 Doctor Unassigned, [facility] DIAGNOSIS AND TREATMENT Cyrus [facility] COMP. METABOLIC PANEL 2022-01-12 23:24:00 Joslyn Ruelas [facility] ([id number]) [facility] CBC WITH DIFF 2022-01-12 23:24:00 Joslyn Ruelas [facility] XR CHEST 1 VW 2022-01-12 23:20:00 Joslyn Ruelas [facility] AC PANEL 21 + LACTIC ACID 2022-01-12 23:14:00 Joslyn Ruelas [facility] POCT GLUCOSE (AUTOMATED) 2022-01-12 17:48:00 [place]lin, [facility] POCT GLUCOSE (AUTOMATED) 2022-01-12 13:22:00 [place]lin, [facility] POCT GLUCOSE (AUTOMATED) 2022-01-12 05:51:00 [place]lin, [facility] POCT GLUCOSE (AUTOMATED) 2022-01-11 23:02:00 Moulin, [facility] POCT GLUCOSE (AUTOMATED) 2022-01-11 17:20:00 Moulin, Cory [facility] POCT GLUCOSE (AUTOMATED) 2022-01-11 13:08:00 [place]oulin, [facility] POCT GLUCOSE (AUTOMATED) 2022-01-11 11:35:00 Moulin, Cory [facility] MAGNESIUM 2022-01-11 10:46:00 Dawood Alva [facility] BASIC METABOLIC PANEL 2022-01-11 10:46:00 Dawood Alva [facility] (NA, K, CL, CO2, GLUCOSE, Medica l Branch BUN, CREATININE, CA) CBC WITH DIFF 2022-01-11 10:46:00 Dawood Alva [facility] POCT GLUCOSE (AUTOMATED) 2022-01-11 04:13:00 Moulin, Cory Uni versity [facility] POCT GLUCOSE (AUTOMATED) 2022-01-10 22:36:00 Moulin, Cory Uni versity [facility] POCT GLUCOSE (AUTOMATED) 2022-01-10 16:44:00 Moulin, Cory Uni versity [facility] POCT GLUCOSE (AUTOMATED) 2022-01-10 13:02:00 Moulin, Cory Rinaldi versity [facility] POCT GLUCOSE (AUTOMATED) 2022-01-10 10:44:00 Moulin, Cory Rinaldi versity [facility] MAGNESIUM 2022-01-10 07:19:00 [facility]IC MET[facility]OLIC PANEL 2022-01-10 07:19:00 [facility] ([facility], K, CL, CO2, GLUCOSE, Medica l Branch BUN, CREATININE, CA) CBC WITH DIFF 2022-01-10 07:19:00 [facility]SE (AUTOMATED) 2022-01-10 04:48:00 Moulin, Cory Nimco [facility] ([facility]OMATED) 2022-01-09 17:23:00 Moulin, Cory Rinaldi [facility] PO[facility] GLUCOSE (AUTOMATED) 2022-01-09 12:46:00 Moulin, Cory [facility] BASIC METABOLIC PANEL 2022-01-09 10:50:00 Artie [facility] (NA, K, CL, CO2, GLUCOSE, Medica l Branch BUN, CREATININE, CA) CBC WITH DIFF 2022-01-09 10:50:[address] [facility] POCT GLUCOSE (AUTOMATED) 2022-01-09 10:42:00 Moulin, Cory [facility]inaldi [facility] POCT GLUCOSE (AUTOMATED) 2022-01-09 04:21:00 Moulin, Cory Rinaldi versity [facility] POCT GLUCOSE (AUTOMATED) 2022-01-08 23:17:00 Moulin, Cory Uni versity [facility] POCT GLUCOSE (AUTOMATED) 2022-01-08 18:14:00 Moulin, Cory Rinaldi versity [facility] POCT GLUCOSE (AUTOMATED) 2022-01-08 13:34:00 Moulin, Cory [facility] POCT GLUCOSE (AUTOMATED) 2022-01-08 10:57:00 Moulin, Cory [facility] BASIC METABOLIC PANEL 2022-01-08 10:48:00 Artie [facility] (NA, K, CL, CO2, GLUCOSE, Medica l Branch BUN, CREATININE, CA) CBC WITH DIFF 2022-01-08 10:48:[address] [facility] POCT GLUCOSE (AUTOMATED) 2022-01-08 05:43:00 Moulin, Cory [facility] POCT GLUCOSE (AUTOMATED) 2022-01-07 21:25:00 Moulin, Cory [facility] POCT GLUCOSE (AUTOMATED) 2022-01-07 16:34:00 Moulin, Cory [facility] ABG+COOX+NA+K+GLU+CA2+ 2022-01-07 15:40:00 u Shahla Stack [facility] POCT GLUCOSE (AUTOMATED) 2022-01-07 13:07:00 Moulin, Cory [facility] BASIC METABOLIC PANEL 2022-01-07 07:14:00 Artie [facility] (NA, K, CL, CO2, GLUCOSE, Medica l Branch BUN, CREATININE, CA) CBC WITH DIFF 2022-01-07 07:14:[address] [facility] POCT GLUCOSE (AUTOMATED) 2022-01-07 05:53:00 Moulin, Cory [facility] POCT GLUCOSE (AUTOMATED) 2022-01-06 23:35:00 Moulin, Cory Nimco [facility] POCT GLUCOSE (AUTOMATED) 2022-01-06 22:16:00 Moulin, Cory [facility] XR CHEST 1 VW 2022-01-06 21:37:00 Abu Shahla Stack [facility] POCT GLUCOSE (AUTOMATED) 2022-01-06 17:02:00 Moulin, Cory Nimco [facility] POCT GLUCOSE (AUTOMATED) 2022-01-06 13:41:00 Moulin, Cory Nimco [facility] PHOSPHORUS 2022-01-06 09:21:00 [facility]any [facility] MAGNESIUM 2022-01-06 09:21:00 Ahmed, [facility] BASIC METABOLIC PANEL 2022-01-06 09:21:00 [facility] (NA, K, CL, CO2, GLUCOSE, Medica l Branch BUN, CREATININE, CA) CBC WITH DIFF 2022-01-06 09:21:00 AhmedDawood [facility] POCT GLUCOSE (AUTOMATED) 2022-01-05 20:44:00 Moulin, Cory [facility] XR ABDOMEN 1 VW 2022-01-05 17:55:00 Meño Stack [facility] POCT GLUCOSE (AUTOMATED) 2022-01-05 16:54:00 Moulin, Cory [facility] POCT GLUCOSE (AUTOMATED) 2022-01-05 13:09:00 MoulinCory Nimco [facility] PHOSPHORUS 2022-01-05 09:06:00 MoulinCory [facility] MAGNESIUM 2022-01-05 09:06:00 MoulinCory [facility] BASIC METABOLIC PANEL 2022-01-05 09:06:00 Cory Cee [facility] (NA, K, CL, CO2, GLUCOSE, Medica l Branch BUN, CREATININE, CA) CBC WITH DIFF 2022-01-05 09:06:00 MoulinCory [facility] POCT GLUCOSE (AUTOMATED) 2022-01-05 05:07:00 Moulin, Cory Nimco [facility] POCT GLUCOSE (AUTOMATED) 2022-01-04 22:10:00 Moulin, Cory Nimco [facility] POCT GLUCOSE (AUTOMATED) 2022-01-04 17:14:00 Moulin, Cory Uni [facility] POCT GLUCOSE (AUTOMATED) 2022-01-04 11:15:00 MoulinCory [facility] PHOSPHORUS 2022-01-04 10:42:00 Jenifer majo [facility] MAGNESIUM 2022-01-04 10:42:00 Jenifer [facility] BASIC METABOLIC PANEL 2022-01-04 10:42:00 [facility] ([facility], K, CL, CO2, GLUCOSE, Medica l Branch BUN, CREATININE, CA) VANCOMYCIN TROUGH 2022-01-04 10:42:00 Moulin, Cory [facility] CBC WITH DIFF 2022-01-04 10:42:00 Jenifer majo [facility] CT ABDOMEN PELVIS W 2022-01-04 09:03:00 Abu Atherabbi, Shahla [facility] POCT GLUCOSE (AUTOMATED) 2022-01-04 06:25:00 Moulin, Cory [facility] POCT GLUCOSE (AUTOMATED) 2022-01-03 21:21:00 Moulin, Cory [facility] XR CHEST 1 VW 2022-01-03 20:48:16 Abu Phillip [facility] POCT GLUCOSE (AUTOMATED) 2022-01-03 16:50:00 Moulin, Cory [facility] POCT GLUCOSE (AUTOMATED) 2022-01-03 12:59:00 Moulin, Cory [facility] POCT GLUCOSE (AUTOMATED) 2022-01-03 10:17:00 Moulin, Cory [facility] AC PANEL 20 + LACTIC ACID 2022-01-03 10:15:00 MoulinCory [facility] MAGNESIUM 2022-01-03 08:54:00 MoulinCory [facility] BASIC METABOLIC PANEL 2022-01-03 08:54:00 MoCory lucio [facility] (NA, K, CL, CO2, GLUCOSE, Medica l Branch BUN, CREATININE, CA) CBC WITH DIFF 2022-01-03 08:54:00 Moulin, Cory [facility] POCT GLUCOSE (AUTOMATED) 2022-01-03 04:48:00 Moulin, Cory [facility] POCT GLUCOSE (AUTOMATED) 2022-01-02 22:15:00 Moulin, Cory [facility] SPUTUM CULTURE 2022-01-02 19:39:00 [facility] XR KUB 2022-01-02 18:17:54 Abu JoeShahla go [facility] XR KUB 2022-01-02 17:07:05 Abu Joeabbi [facility] POCT GLUCOSE (AUTOMATED) 2022-01-02 16:26:00 Cory Cee [facility] CT HEAD WO CONTRAST 2022-01-02 15:49:23 Meño DiazShahla [facility] XR CHEST 1 VW 2022-01-02 13:45:16 Abu Joe [facility] AC PANEL 20 + LACTIC ACID 2022-01-02 12:37:00 Meño Stack [facility] POCT GLUCOSE (AUTOMATED) 2022-01-02 12:26:00 Cory Cee [facility] BASIC METABOLIC PANEL 2022-01-02 10:42:00 Cory Cee [facility] (NA, K, CL, CO2, GLUCOSE, Medica l Branch BUN, CREATININE, CA) BLOOD CULTURE SCREEN 2022-01-02 10:41:00 Cory Cee [facility] CBC WITH DIFF 2022-01-02 10:41:00 Cory Cee [facility] GLYCOSYLATED HEMOGLOBIN 2022-01-02 10:41:00 Meño DiazShahla [facility] (A1C) [facility] BLOOD CULTURE SCREEN 2022-01-02 10:40:00 MoCory lucio [facility] RESPIRATORY CULTURE 2022-01-02 10:40:00 MoCory lucio [facility] URINE CULTURE 2022-01-02 10:39:00 MoCory lucio [facility] MRSA / MSSA SCREEN BY 2022-01-02 10:39:00 Cory Cee [facility] PCR, [facility] ABG+COOX+NA+K+GLU+CA2+ 2022-01-02 10:17:00 Cory Cee [facility] acute hospital AC PANEL 21 + LACTIC ACID 2022-01-02 03:53:00 Janis [facility] XR CHEST 1 VW 2022-01-02 02:59:00 Janis [facility] URINALYSIS 2022-01-02 02:58:00 Janis [facility] LACTIC ACID WHOLE BLOOD 2022-01-02 02:26:00 Janis Valencia [facility] AC PANEL 21 + LACTIC ACID 2022-01-02 02:26:00 Janis [facility] BLOOD CULTURE SCREEN 2022-01-02 02:25:00 Janis [facility] TROPONIN I 2022-01-02 02:25:00 [facility]is [facility] COMP. METABOLIC PANEL 2022-01-02 02:25:00 Janis Valencia [facility] ([id number]) [facility] CBC WITH DIFF 2022-01-02 02:25:00 Janis [facility] N-TERMINAL PRO-BNP 2022-01-02 02:25:00 Janis Valencia [facility] HB ECG ROUTINE & RHYTHM 2022-01-02 02:14:14 Janis Valencia [facility] HOSPITAL ADMISSION 2022-01-01 05:01:00 Doctor Unassigned, [facility] Cyrus [facility] XR CHEST 1 VW 2021-12-09 04:15:00 Duke Velazquez [facility] LIPASE 2021-12-09 03:52:00 Duke Velazquez [facility] TROPONIN I 2021-12-09 03:52:00 Duke Velazquez [facility] COMP. METABOLIC PANEL 2021-12-09 03:52:00 Duke Velazquez [facility] ([id number]) [facility] CBC WITH DIFF 2021-12-09 03:52:00 Duke Velazquez [facility] N-TERMINAL PRO-BNP 2021-12-09 03:52:00 Duke Velazquez [facility] acute hospital CONSENT/REFUSAL FOR 2021-12-09 03:24:16 Doctor [facility] DIAGNOSIS AND TREATMENT Cyrus [facility] POCT GLUCOSE (AUTOMATED) 2021-09-23 17:13:00 Paula Rowe [facility] POCT GLUCOSE (AUTOMATED) 2021-09-23 13:53:00 Paula Rowe [facility] BASIC METABOLIC PANEL 2021-09-23 10:22:00 Laurie Wilkins [facility] (NA, K, CL, CO2, GLUCOSE, Medica l Branch BUN, CREATININE, CA) CBC WITHOUT DIFF 2021-09-23 10:22:00 Laurie Wilkins [facility] POCT GLUCOSE (AUTOMATED) 2021-09-23 10:12:00 Paula Rowe [facility] POCT GLUCOSE (AUTOMATED) 2021-09-23 05:38:00 Paula Rowe [facility] POCT GLUCOSE (AUTOMATED) 2021-09-23 02:14:00 Paula Rowe [facility] POCT GLUCOSE (AUTOMATED) 2021-09-22 22:20:00 Paula Rowe [facility] POCT GLUCOSE (AUTOMATED) 2021-09-22 19:52:00 Paula Rowe [facility] TRANSTHORACIC ECHO (TTE) 2021-09-22 18:44:47 Cabrera [facility] COMPLETE W/ CONTRAST Medical [facility] POCT GLUCOSE (AUTOMATED) 2021-09-22 18:07:00 Paula Rowe [facility] EKG-12 LEAD 2021-09-22 13:45:[address] [facility] POCT GLUCOSE (AUTOMATED) 2021-09-22 13:20:00 Paula Rowe [facility] PNEUMOCOCCAL ANTIGEN 2021-09-22 12:39:00 Cabrera Armstrong [facility] MRSA / MSSA SCREEN BY 2021-09-22 12:34:00 [facility] PCR, NARWindom [facility] RESPIRATORY PANEL BY PCR 2021-09-22 12:34:00 Nikos Pugh Nimco [facility] GALV ONLY - INFLUENZA A B 2021-09-22 12:33:00 NathanielAlbertomarcio [facility] RSV PCR [facility] Branch COVID-19 (MOLECULAR 2021-09-22 12:33:00 Cecilia Jones [facility] TESTING [facility] NUCLEIC ACID AMPLIFICATION) SPUTUM CULTURE 2021-09-22 12:30:00 Nathaniel [facility] AC PANEL 20 + LACTIC ACID 2021-09-22 12:16:00 Cabrera [facility] PHOSPHORUS 2021-09-22 12:15:00 Nathaniel [facility] MAGNESIUM 2021-09-22 12:15:00 [facility] HEPATIC FUNCTION PANEL 2021-09-22 12:15:00 [facility] ([id number]) (ALB,T.PRO,BILI Medical Branch T,BU/BC,ALT,AST,ALK PHOS) BASIC METABOLIC PANEL 2021-09-22 12:15:00 [facility] (NA, K, CL, CO2, GLUCOSE, Medica l Branch BUN, CREATININE, CA) CBC WITH DIFF 2021-09-22 12:15:00 [facility] PROTHROMBIN TIME / INR 2021-09-22 12:15:00 Armstrong [facility] BLOOD CULTURE SCREEN 2021-09-22 12:13:00 Nathaniel [facility] AC PANEL 20 + LACTIC ACID 2021-09-22 06:41:00 Paula Rowe [facility] TROPONIN I 2021-09-22 06:36:00 Paula Rowe [facility] COMP. METABOLIC PANEL 2021-09-22 06:36:00 Paula Rowe [facility] ([id number]) Medical Branch CBC WITH DIFF 2021-09-22 06:36:00 Paula Rowe [facility] GLYCOSYLATED HEMOGLOBIN 2021-09-22 06:36:00 Cabrera Armstrong [facility] (A1C) [facility] PROTHROMBIN TIME / INR 2021-09-22 06:36:00 Paula Rowe [facility] ACTIVATED PARTIAL 2021-09-22 06:36:00 Paula Rowe [facility] THRMPLAS SHREYA [facility] N-TERMINAL PRO-BNP 2021-09-22 06:36:00 [facility] COVID-19 (ID NOW RAPID 2021-09-22 06:36:00 Puala Rowe [facility] TESTING) Medical Branch LAB ONLY COVID 2021-09-22 06:36:00 Paula Rowe [facility] INTERPRETATION [facility] XR CHEST 1 VW 2021-09-22 06:26:48 Paula Rowe [facility] HB ECG ROUTINE & RHYTHM 2021-09-22 06:17:39 Paula Rowe [facility] HOSPITAL ADMISSION 2021-09-22 06:01:00 Doctor Arturo, [facility] [place] CONSENT/REFUSAL FOR 2021-09-22 06:00:03 Doctor Arturo [facility] DIAGNOSIS AND TREATMENT Cyrus [facility] DME/SUPPLY JUSTIFICATION 2021-08-01 06:01:00 Doctor Arturo, [facility] Name [facility] Encounters Start End Encounter Admission Attending Care Care Encounter Source Date/Time Date/Time Type Type Clinicians Facility Department ID 2022-08-05 Emergency [facility] [id number] Univers 00:34:25 ity [facility] 2022-09-09 2022-09-09 Emergency [facility] [id number] Univers 06:30:00 08:46:00 JOSLYN shipman [facility] 2022-09-09 2022-09-09 Emergency [facility] 1.2.840.114 [id number] Univers 06:30:00 08:46:00 Joslyn BOYD 350.1.13.10 ity [facility] 4.2.7.2.686 [facility] [id number] [facility] 084 Branch 2022-08-12 2022-08-12 Transition [place] Arrieat 1.2.840.114 [id number] Univers 00:00:00 00:00:00 of Care Alessandra JEFFREY 350.1.13.10 i ty of [place] 4.2.7.2.686 [facility] [id number] [facility] 403 Branch 2022-08-05 2022-08-10 Inpatient U CARLOS [facility] [id number] Univers 00:39:00 17:00:00 COREY umberto [facility] 2022-08-05 2022-08-10 [facility] Jonas Hernandez [facility] 1.2.840.11 [id number] Univers 00:39:00 17:00:00 Encounter Carlos Corey DEB 350.1.13.10 ity [facility] 4.2.7.2.686 [facility] [id number] [place] [address] [place] 2022-06-04 2022-06-04 Emergency X [facility] ERT [id number] Univers 20:54:00 23:53:00 GEN shipman [facility] 2022-06-04 2022-06-04 Emergency [facility] 1.2.648.483 [id number] Univers 20:54:00 23:53:00 Gen BOYD 350.1.13.10 i ty [facility] 4.2.7.2.686 [facility] [id number] [address] 2022-05-12 2022-05-13 Emergency X [facility] ERT [id number] Univers 22:51:00 03:10:00 PAULA shipman [facility] 2022-05-12 2022-05-13 Emergency [facility] 1.2.642.149 [id number] Univers 22:51:00 03:10:00 Paula BOYD 350.1.13.10 i ty of [place] 4.2.7.2.686 [facility] [id number] [address] 2022-05-02 2022-05-02 Emergency X Sanjay HENRY [facility] ERT [id number] Univers 00:17:00 02:29:00 umberto [facility] 2022-05-02 2022-05-02 Emergency Carl, K [facility] 1.2.840.114 [id number] Univers 00:17:00 02:29:00 Janel BOYD 350.1.13.10 i [id number] [place] [address] Branch 2022-04-28 2022-04-29 Emergency [facility] ERT [id number] Univers 21:41:00 00:50:00 PAULA ity of [facility] 2022-04-28 2022-04-29 Emergency [facility] 1.2.169.353 [id number] Univers 21:41:00 00:50:00 Paula BOYD 350.1.13.10 i ty [place] [id number] [place] [address] Branch 2022-03-02 2022-03-02 Transition OM Arrieta 1.2.840.114 [id number] Univers 00:00:00 00:00:00 of Care Alessandra EMY 350.1.13.10 i [place] [id number] [facility] 403 Branch 2022-02-20 2022-02-27 [facility] [id number] Univers 14:58:00 17:54:00 [facility] 2022-02-20 2022-02-27 [facility] Paula Rowe 1.2.840.1 14 [id number] Univers 14:58:00 17:54:00 Encounter Kevin Lebron 350.1.13.10 ity of [facility] 4.2.7.2. 686 [place] [id number] [place] [address] Branch 2022-02-18 2022-02-18 Transition [place] Arri[place] 1.2.840.114 [id number] Univers 00:00:00 00:00:00 of Care Alessandra EMY 350.1.13.10 [place] [id number] [facility] 403 Branch 2022-02-11 2022-02-17 Inpatient X SCARLETT [facility] [id number] Univers 19:55:00 18:10:00 VALERIANO ity [facility] 2022-02-11 2022-02-17 [facility] Paula Rowe [facility] 1.2.840.1 14 [id number] Univers 19:55:00 18:10:00 Encounter Valeriano Pantoja HEALTH 350.1.13.1 0 ity of [place] 4.2.7.2.686 [facility] [id number] [facility] ([facility]) 2022-02-02 2022-02-02 Transition [place] Arri[place] 1.2.840.114 [id number] Univers 00:00:00 00:00:00 of Care Alessandra EMY 350.1.13.10 [place] [id number] [facility] 403 Branch 2022-01-27 2022-01-31 Inpatient X MARY [facility] [id number] Univers 20:40:00 13:51:00 ADNAN ity of [facility] 2022-01-27 2022-01-31 [facility] Paula Rowe [facility] 1.2.840.1 14 [id number] Univers 20:40:00 13:51:00 Encounter Jonas Hernandez DEB 350.1.13.10 ity of [place] 4.2.7.2.686 [facility] [id number] [facility] 080 Branch 2022-01-28 2022-01-28 Telephone [facility] 1.2.840.114 [id number] Univers 00:00:00 00:00:00 Layne HEALTH 350.1.13.10 it y of [place] 4.2.7.2.686 [place] [facility] - [id number] [facility] 144 Branch 2022-01-13 2022-01-13 Transition [place] Arri[place] 1.2.840.114 [id number] Univers 00:00:00 00:00:00 of Care Alessandra Garcia JEFFREY 350.1.13.10 i [place] [id number] [facility] 403 Branch 2022-01-12 2022-01-12 Emergency X [facility] ERT [id number] Univers 17:23:00 22:19:00 JOSLYN ity [facility] 2022-01-12 2022-01-12 Emergency [facility] 1.2.840.114 [id number] Univers 17:23:00 22:19:00 Joslyn BOYD 350.1.13.10 ity [facility] 4.2.7.2.686 [facility] [id number] [place] [address] Branch 2022-01-01 2022-01-12 Inpatient X [facility] [id number] Univers 21:18:00 14:06:00 umberto STACK [facility] 2022-01-01 2022-01-12 [facility] Janis Valencia [facility] 1 .2.840.114 [id number] Univers 21:18:00 14:06:00 Encounter Cory Cee [facility] 350.1.13.10 ity of Meño Diazabbi Shahla [place] 4.2.7.2.686 [facility] [id number] [facility] 111 Branch (CLC) 2021-12-08 2021-12-09 Emergency X [facility] ERT [id number] Univers 22:28:00 00:58:00 DUKE ity [facility] 2021-12-08 2021-12-09 Emergency [facility] 1.2.840.114 [id number] Univers 22:28:00 00:58:00 Duke BOYD 350.1.13.10 ity of [place] [id number] [facility] 084 Branch 2021-09-24 2021-09-24 Transition [place] Brewer 1.2.840.114 [id number] Univers 00:00:00 00:00:00 of Care Patria JEFFREY 350.1.13.10 [place] [id number] [facility] 403 Branch 2021-09-22 2021-09-23 Inpatient U ENE GIVENS [facility] MPU [id number] Univers 00:05:00 15:03:00 ENE GIVENS i ty of [facility] 2021-09-22 2021-09-23 Hospital Paula Rowe 1.2.840.1 14 [id number] Univers 00:05:00 15:03:00 Encounter Ene Givens 350.1.13.10 ity of HOSPITAL 4.2.7.2.686 Compa as [id number] [facility] 085 Branch 2021-08-01 2021-08-01 Orders Doctor KATELYN 1.2.840.114 [id number] Univers 00:00:00 00:00:00 Only Unassigned, JACKIE 350.1.13.10 ity of C[place] [facility] 4.2.7.2.686 Compa as [id number] [facility] 009 Branch 2021-07-23 2021-07-23 Office [facility] 1.2.840.114 [id number] Univers 14:15:00 14:30:00 Visit [facility] 350.1.13.10 it y of [place].686 [place] [facility] - [id number] [facility] 144 Branch 2021-07-23 2021-07-23 [facility] [id number] Univers 14:15:00 14:15:00 LAYNE ity [facility] 2021-07-23 2021-07-23 [facility]patient [facility] [id number] Univers 14:15:00 14:15:00 LAYNE ity [facility] 2021-07-23 2021-07-23 [facility] 1.2.840.114 [id number] Univers 00:00:00 00:00:00 Laynesteven MENDOZA 350.1.13.10 i ty [facility] [place]2.[place] [id number] [facility] 144 Branch 2021-06-25 2021-06-26 Emergency X JOS [facility] ERT [id number] Univers 21:58:00 03:17:00 APARNA [facility] 2021-06-25 2021-06-26 [facility] 1.2.441.947 [id number] Univers 21:58:00 03:17:00 Aparna BOYD 350.1.13.10 [facility] 4.2.7.2.686 [facility] [id number] [place] [address] [place] 2021-02-19 2021-02-19 Outpatient [facility] [id number] Univers 00:00:00 00:00:00 [facility] 2020-02-01 2020-02-01 Outpatient [facility] [id number] Univers 00:00:00 00:00:00 [facility] 2019-09-01 2019-09-01 Outpatient [facility] [id number] Univers 14:41:55 23:59:00 GAB [facility] 2019-08-04 2019-08-04 Outpatient [facility] [id number] Univers 17:13:44 23:59:00 JUNE [facility] Results Test Description Test Time Test Comments Results Result Comments Source POCT GLUCOSE (AUTOMATED) 2022-08-10 20:26:18 Test Item Value Reference Range Interpretation Comme nts POCT GLU (test code = 0236584524) 178 mg/dL 70-110 H Lab Interpretation (test code = 85736-2) Abnormal [facility] GLUCOSE (AUTOMATED)2022-08-10 20:26:17 Test Item Value Reference Range Interpretation Comments POCT GLU (test code = 1006611186) 134 mg/dL 70-110 H Lab Interpretation (test code = Abnormal 56032-0) [facility] GLUCOSE (AUTOMATED)2022-08-10 09:35:52 Test Item Value Reference Range Interpretation Comments POCT GLU (test code = 6910394964) 240 mg/dL 70-110 H Lab Interpretation (test code = Abnormal 37431-1) [facility] GLUCOSE (AUTOMATED)2022-08-10 06:09:42 Test Item Value Reference Range Interpretation Comments POCT GLU (test code = 1213774643) 219 mg/dL 70-110 H Lab Interpretation (test code = Abnormal 80747-4) [facility] GLUCOSE (AUTOMATED)2022-08-10 02:27:50 Test Item Value Reference Range Interpretation Comments POCT GLU (test code = 2399628579) 264 mg/dL 70-110 H Lab Interpretation (test code = Abnormal 71711-6) [facility] GLUCOSE (AUTOMATED)2022-08-09 22:32:46 Test Item Value Reference Range Interpretation Comments POCT GLU (test code = 5380975371) 327 mg/dL 70-110 H Lab Interpretation (test code = Abnormal 45438-3) [facility] GLUCOSE (AUTOMATED)2022-08-09 13:19:52 Test Item Value Reference Range Interpretation Comments POCT GLU (test code = 7048860665) 196 mg/dL 70-110 H Lab Interpretation (test code = Abnormal 00680-3) [facility] 12:10:11 Test Item Value Reference Range Interpretation Comments MAGNESIUM (test code = 5612211043) 2.5 mg/dL 1.7-2.4 H Lab Interpretation (test code = Abnormal 50215-6) [facility] (NA, K, CL, CO2, GLUCOSE, BUN, CREATININE, CA)2022-08-09 12:10:06 Test Item Value Reference Range Interpretation Comments NA (test code = 137 mmol/L 135-145 1565338680) K (test code = 4.3 mmol/L 3.5-5.0 2226259618) CL (test code = 101 mmol/L 98-108 2625615379) CO2 TOTAL (test code = 35 mmol/L 23-31 H 7488848381) AGAP (test code = 2-16 L 6943985489) BUN (test code = 22 mg/dL 7-23 7385681185) GLUCOSE (test code = 186 mg/dL 70-110 H 4362020683) CREATININE (test code = 0.82 mg/dL 0.50-1.04 4011147470) CALCIUM (test code = 8.2 mg/dL 8.6-10.6 L 6339874445) eGFR (test code = mL/min/1.73m2 9646117714) JENNIFFER (test code = JENNIFFER) Association of [...] tests). Lab Interpretation Abnormal (test code = 83436-2) [facility]2023-[facility]-15 12:09:46 Test Item Value Reference Range Interpretation Comments PHOSPHORUS (test code = 7727221349) 3.2 mg/dL 2.5-5.0 Lab Interpretation (test code = Normal 92452-9) [facility] WITH [id number] 12:03:07 Test Item Value Reference Range Interpretation Comments WBC (test code = See_Comment [Automated 9790-2) message] The sy stem which generated this result transmitted reference range : 4.30 - 11.10 10*3/?L. The reference range was not used to interpret this result as normal/abnormal . RBC (test code = See_Comment L [Automated 629-8) message] The sy stem which generated this [...] RDW-SD (test code = 47.1 fL 39.0-49.9 34949-7) RDW-CV (test code = 14.6 % 12.0-15.5 788-0) PLT (test code = See_Comment [Automated 777-3) message] The sy stem which generated this result transmitted reference range : 166 - 358 10*3/ ?L. The reference r josselyn was not used to interpret this result as normal/abnormal . MPV (test code = 9.5 fL 9.5-12.9 35104-9) NRBC/100 WBC (test See_Comment [Automat ed code = 2823836535) message] The system which generated this result transmitted reference range : 0.0 - 10.0 /100 WBCs. The refer ence range was not u sed to interpret th is result as normal/abnormal . NRBC x10^3 (test code See_Comment [Auto mated = 0280400827) message] The s ystem which generated this result transmitted reference range : 10*3/?L. The reference range was not used to interpret this result as normal/abnormal . GRAN MAT (NEUT) % 85.8 % (test code = 770-8) IMM GRAN % (test code 2.50 % = 2793562679) LYMPH % (test code = 6.7 % 736-9) MONO % (test code = 4.8 % 5905-5) EOS % (test code = 0.1 % 713-8) BASO % (test code = 0.1 % 706-2) GRAN MAT x10^3(ANC) 7.74 10*3/uL 1.88-7.09 H (test code = 9091602633) IMM GRAN x10^3 (test 0.23 10*3/uL 0.00-0.06 H code = 6544128989) LYMPH x10^3 (test code 0.60 10*3/uL 1.32-3.29 L = 731-0) MONO x10^3 (test code 0.43 10*3/uL 0.33-0.92 = 742-7) EOS x10^3 (test code = 0.03-0.39 L 711-2) BASO x10^3 (test code 0.01-0.07 = 704-7) Lab Interpretation Abnormal (test code = 41023-1) [facility] GLUCOSE (AUTOMATED)2022-08-09 11:54:17 Test Item Value Reference Range Interpretation Comments POCT GLU (test code = 9056612264) 202 mg/dL 70-110 H Lab Interpretation (test code = Abnormal 25649-5) [facility] GLUCOSE (AUTOMATED)2022-08-09 06:19:48 Test Item Value Reference Range Interpretation Comments POCT GLU (test code = 3648062197) 231 mg/dL 70-110 H Lab Interpretation (test code = Abnormal 13764-2) [facility] GLUCOSE (AUTOMATED)2022-08-09 02:32:58 Test Item Value Reference Range Interpretation Comments POCT GLU (test code = 1344762236) 316 mg/dL 70-110 H Lab Interpretation (test code = Abnormal 88469-7) [facility] GLUCOSE (AUTOMATED)2022-08-09 02:28:52 Test Item Value Reference Range Interpretation Comments POCT GLU (test code = 5682216198) 363 mg/dL 70-110 H Lab Interpretation (test code = Abnormal 33315-5) [facility] GLUCOSE (AUTOMATED)2022-08-08 17:32:51 Test Item Value Reference Range Interpretation Comments POCT GLU (test code = 5726190670) 201 mg/dL 70-110 H Lab Interpretation (test code = Abnormal 30800-2) [facility] GLUCOSE (AUTOMATED)2022-08-08 17:32:51 Test Item Value Reference Range Interpretation Comments POCT GLU (test code = 7053655517) 251 mg/dL 70-110 H Lab Interpretation (test code = Abnormal 83425-7) [facility] GLUCOSE (AUTOMATED)2022-08-08 10:02:25 Test Item Value Reference Range Interpretation Comments POCT GLU (test code = 9678387809) 153 mg/dL 70-110 H Lab Interpretation (test code = Abnormal 52710-1) [facility] GLUCOSE (AUTOMATED)2022-08-08 06:20:09 Test Item Value Reference Range Interpretation Comments POCT GLU (test code = 5510933978) 224 mg/dL 70-110 H Lab Interpretation (test code = Abnormal 19960-8) [facility] GLUCOSE (AUTOMATED)2022-08-08 02:43:59 Test Item Value Reference Range Interpretation Comments POCT GLU (test code = 0777767771) 256 mg/dL 70-110 H Lab Interpretation (test code = Abnormal 12209-9) [facility] GLUCOSE (AUTOMATED)2022-08-07 22:28:36 Test Item Value Reference Range Interpretation Comments POCT GLU (test code = 8128121844) 273 mg/dL 70-110 H Lab Interpretation (test code = Abnormal 23197-7) [facility]E)2022-08-07 22:15:07 Test Item Value Reference Range Interpretation Comments Height (test code = in 5863506898) Weight (test code = lbs 1369711667) Systolic BP (test code = mmHg 8315730786) Diastolic BP (test code mmHg = 1615476355) Heart Rate (test code = bpm 8781071936) BSA (test code = 1.96 m2 0554393149) Ao root diam (test code 3.30 cm = 7053413835) Aortic root (test code = 3.3 cm 2525357394) Ao root annulus (test 3.3 cm code = 0547262679) LVOT diameter (test code 1.80 cm = 0786367743) LVOT area (test code = 2.60 cm2 5134210202) LVIDD (test code = 3.50 cm 3166569916) Left Ventricular End 51.9 mL Diastolic Volume by Teichholz Method (test code = 5947249) IVS (test code = 1.24 cm 4452562998) Interventricular Septum 1.24 cm Diastolic Thickness by 2D (test code = 8018250) LVPWD (test code = 1.24 cm 5347085332) PW (test code = 1.24 cm 0.6-1.9 7589840921) EF(Teich) (test code = 58.70 % 6561245747) LVIDS (test code = 2.46 cm 4492892143) Left Ventricular End 21.4 mL Systolic Volume by Teichholz Method (test code = 5465296) FS (test code = 30 % 7050919530) EF - 2D (test code = 58.70 % 42545772) LA size (test code = 2.9 cm 9423192474) MV Peak E Marva (test code 81.4 cm/s = 8366456861) MV stenosis pressure 1/2 76.6 ms time (test code = 4064337442) E wave decelartion time 0.26 s (test code = 5897822921) MV Peak A Marva (test code 87.8 cm/s = 3424616386) E/A ratio (test code = ratio 2732845008) MV Prop V (test code = 139.40 cm/s 7533653391) MV E/e' septal (test 7.4 cm/s code = 4755585843) Tapse (test code = 1.61 cm 8342640352) LVOT stroke volume (test 53.30 cm3 code = 0382850821) LVOT peak marva (test code 128.1 cm/s = 2368867618) LVOT mn grad (test code mmHg = 0997218987) AV LVOT peak gradient mmHg (test code = 3897618870) LVOT peak VTI (test code 20.9 cm = 2281352327) LV V1 mean (test code = 86.80 cm/s 7246015669) Aortic valve mean 119.8 cm/s velocity (test code = 4743718034) Ao peak marva (test code = 175.1 cm/s 4314423024) Ao VTI (test code = 28.5 cm 6084244899) AV area by cont VTI 1.9 cm2 (test code = 5549698906) AV area peak marva (test 1.9 cm2 code = 7918412957) Ao max PG (test code = 12.30 mm[Hg] 7670066607) AV peak gradient (test mmHg code = 1449024193) AV valve area (test code 1.87 cm2 = 9058971320) AV mean gradient (test mmHg code = 6581652695) Radiology Study observation (narrative) (test code = 88118-5) JENNIFFER (test code = JENNIFFER) Table formatting [...] mL of Lumason ultrasound enhancing agent used. [facility]2022-08-07 17:28:57 Test Item Value Reference Range Interpretation Comments POCT GLU (test code = 168 mg/dL 70-110 H Notifi ed Provider 1907687624) Lab Interpretation (test Abnormal code = 20896-3) [facility] Hospital[facility]YROID STIMULATING [id number] 14:57:11 Test Item Value Reference Range Interpretation Comments TSH (test code = See_Comment Biotin has been 2402532680) reported to cau se a negative bias, interpret resul ts relative to pat ient's use of biotin. [Automated mess age] The system whic [employer] generated this result transmitted ref erence range: 0.45 - 4 .70 mIU/L. The refe rence range was not u sed to interpret this result as normal/abnor mal. Lab Interpretation (test Normal code = 76588-6) [facility] GLUCOSE (AUTOMATED)2022-08-07 13:46:07 Test Item Value Reference Range Interpretation Comments POCT GLU (test code = 8981757833) 180 mg/dL 70-110 H Lab Interpretation (test code = Abnormal 30655-0) [facility] GLUCOSE (AUTOMATED)2022-08-07 12:34:16 Test Item Value Reference Range Interpretation Comments POCT GLU (test code = 2446656282) 198 mg/dL 70-110 H Lab Interpretation (test code = Abnormal 39901-6) [facility] [id number] 12:27:41 Test Item Value Reference Interpretation Comments Range TROPONIN I (test 0.005 ng/mL See_Comment [Automated code = 8454949161) message] The system which generated this result [...] biotin. Lab Interpretation Normal (test code = 64450-6) [facility]AL [id number] 12:24:19 Test Item Value Reference Range Interpretation Comments NT-proBNP (test code 332 pg/mL See_Comment H [Autom ated = 9031006881) message] The system which generated this result transmitted reference range : <=125. The reference range was not used to interpret this result as normal/abnormal . JENNIFFER (test code = JENNIFFER) Biotin has been reported to cause a negative bias, interpret results relative to patient's use of biotin. Lab Interpretation Abnormal (test code = 20746-4) [facility]. METABOLIC PANEL (58016)2022-08-07 12:17:19 Test Item Value Reference Range Interpretation Comments NA (test code = 137 mmol/L 135-145 4979180765) K (test code = 4.3 mmol/L 3.5-5.0 3774358543) CL (test code = 103 mmol/L 98-108 6023674535) CO2 TOTAL (test code = 30 mmol/L 23-31 5332786060) AGAP (test code = 2-16 6739881546) BUN (test code = 30 mg/dL 7-23 H 6681702663) GLUCOSE (test code = 198 mg/dL 70-110 H 8465177732) CREATININE (test code = 0.93 mg/dL 0.50-1.04 4979518751) TOTAL BILI (test code = 0.4 mg/dL 0.1-1.9 4433045587) CALCIUM (test code = 8.3 mg/dL 8.6-10.6 L 6217966181) T PROTEIN (test code = 6.0 g/dL 6.3-8.2 L 9851919040) ALBUMIN (test code = 3.2 g/dL 3.5-5.0 L 2052108182) ALK PHOS (test code = 70 U/L 34-122 3906058366) ALTv (test code = 23 U/L 5-35 1742-6) AST(SGOT) (test code = 22 U/L 13-40 6789374732) eGFR (test code = mL/min/1.73m2 2734793855) JENNIFFER (test code = JENNIFFER) Association of [...] tests). Lab Interpretation Abnormal (test code = 18030-0) [facility] 12:17:19 Test Item Value Reference Range Interpretation Comments MAGNESIUM (test code = 3427015749) 2.4 mg/dL 1.7-2.4 Lab Interpretation (test code = Normal 03608-3) [facility] 12:16:59 Test Item Value Reference Range Interpretation Comments PHOSPHORUS (test code = 6080919474) 3.3 mg/dL 2.5-5.0 Lab Interpretation (test code = Normal 98005-4) [facility] WITH [id number] 12:16:18 Test Item Value Reference Range Interpretation Comments WBC (test code = See_Comment H [Automated 7090-2) message] The system which generated this result transmit alden reference range : 4.30 - 11.10 10*3/?L. The reference range was not used to interpret this result as normal/abnormal . RBC (test code = See_Comment L [Automated 909-8) message] The system which generated this result [...] (test code = 50.2 fL 39.0-49.9 H 28003-8) RDW-CV (test code = 15.1 % 12.0-15.5 788-0) PLT (test code = See_Comment [Automated 777-3) message] The system which generated this result transmit alden reference range : 166 - 358 10*3/ ?L. The reference range was not u sed to interpret th is result as normal/abnormal . MPV (test code = 10.0 fL 9.5-12.9 79764-6) NRBC/100 WBC (test See_Comment [Automat ed code = 5359830762) message] The system which generated this result transmit alden reference range : 0.0 - 10.0 /100 WBCs. The reference range was not used to interpret this result as normal/abnormal . NRBC x10^3 (test code See_Comment [Auto mated = 5869911301) message] The system which generated this result transmit alden reference range : 10*3/?L. The reference range was not used to interpret this result as normal/abnormal . GRAN MAT (NEUT) % 87.7 % (test code = 770-8) IMM GRAN % (test code 1.10 % = 6836582455) LYMPH % (test code = 7.7 % 736-9) MONO % (test code = 3.4 % 5905-5) EOS % (test code = 0.0 % 713-8) BASO % (test code = 0.1 % 706-2) GRAN MAT x10^3(ANC) 11.83 10*3/uL 1.88-7.09 H (test code = 6385297682) IMM GRAN x10^3 (test 0.15 10*3/uL 0.00-0.06 H code = 9610451167) LYMPH x10^3 (test code 1.04 10*3/uL 1.32-3.29 L = 731-0) MONO x10^3 (test code 0.46 10*3/uL 0.33-0.92 = 742-7) EOS x10^3 (test code = 0.03-0.39 L 711-2) BASO x10^3 (test code 0.01-0.07 = 704-7) Lab Interpretation Abnormal (test code = 37389-1) [facility] UNCON[facility]UGATED/BILI [id number] 12:16:18 Test Item Value Reference Range Interpretation Comments BILI CONJ (test code = 3514861399) 0.0 mg/dL 0.0-0.3 BILI UNCON (test code = 4211186255) 0.2 mg/dL 0.1-1.1 Lab Interpretation (test code = Normal 21994-1) [facility] GLUCOSE (AUTOMATED)2022-08-07 10:20:14 Test Item Value Reference Range Interpretation Comments POCT GLU (test code = 9315794629) 227 mg/dL 70-110 H Lab Interpretation (test code = Abnormal 07904-1) [facility] GLUCOSE (AUTOMATED)2022-08-07 05:43:17 Test Item Value Reference Range Interpretation Comments POCT GLU (test code = 5817613736) 162 mg/dL 70-110 H Lab Interpretation (test code = Abnormal 74201-5) [facility] GLUCOSE (AUTOMATED)2022-08-07 02:28:42 Test Item Value Reference Range Interpretation Comments POCT GLU (test code = 2121323292) 229 mg/dL 70-110 H Lab Interpretation (test code = Abnormal 85911-5) [facility] GLUCOSE (AUTOMATED)2022-08-06 17:18:17 Test Item Value Reference Range Interpretation Comments POCT GLU (test code = 0267879764) 223 mg/dL 70-110 H Lab Interpretation (test code = Abnormal 15648-7) [facility] HospitalLawyic Acid Whole [id number] 13:38:44 Test Item Value Reference Range Interpretation Comments LACTIC ACID (test code = 1.93 mmol/L 0.50-2.20 4757674872) Lab Interpretation (test code = Normal 19811-2) [facility]2022-08-06 13:29:26 Test Item Value Reference Range Interpretation Comments POCT GLU (test code = 8039366024) 261 mg/dL 70-110 H Lab Interpretation (test code = Abnormal 85163-7) [facility] HospitalTROPONIN [id number] 12:40:18 Test Item Value Reference Interpretation Comments Range TROPONIN I (test 0.002 ng/mL See_Comment [Automated code = 3772170984) message] The system which generated this result [...] biotin. Lab Interpretation Normal (test code = 32503-6) [facility]N-[facility]AL [id number] 12:37:16 Test Item Value Reference Range Interpretation Comments NT-proBNP (test code 480 pg/mL See_Comment H [Autom ated = 2280047349) message] The system which generated this result transmitted reference range : <=125. The reference range was not used to interpret this result as normal/abnormal . JENNIFFER (test code = JENNIFFER) Biotin has been reported to cause a negative bias, interpret results relative to patient's use of biotin. Lab Interpretation Abnormal (test code = 39871-5) [facility] MET[facility]OLIC PANEL (81414)2022-08-06 12:28:53 Test Item Value Reference Range Interpretation Comments NA (test code = 136 mmol/L 135-145 7341763803) K (test code = 4.3 mmol/L 3.5-5.0 6563508634) CL (test code = 99 mmol/L 98-108 0951826216) CO2 TOTAL (test code = 36 mmol/L 23-31 H 6361310262) AGAP (test code = 2-16 L 9025235950) BUN (test code = 30 mg/dL 7-23 H 0582211715) GLUCOSE (test code = 246 mg/dL 70-110 H 1100843637) CREATININE (test code = 0.94 mg/dL 0.50-1.04 7039837754) TOTAL BILI (test code = 0.5 mg/dL 0.1-1.8 1242934214) CALCIUM (test code = 8.6 mg/dL 8.6-10.6 9171056293) T PROTEIN (test code = 5.9 g/dL 6.3-8.2 L 3266098610) ALBUMIN (test code = 3.2 g/dL 3.5-5.0 L 6133836874) ALK PHOS (test code = 81 U/L 34-122 7031874161) ALTv (test code = 24 U/L 5-35 1742-6) AST(SGOT) (test code = 23 U/L 13-40 5713680318) eGFR (test code = mL/min/1.73m2 0410471858) JENNIFFER (test code = JENNIFFER) Association of [...] tests). Lab Interpretation Abnormal (test code = 87775-5) [facility] 12:28:53 Test Item Value Reference Range Interpretation Comments MAGNESIUM (test code = 6972596730) 2.2 mg/dL 1.7-2.4 Lab Interpretation (test code = Normal 18915-5) [facility]2023-[facility]-12 12:28:33 Test Item Value Reference Range Interpretation Comments PHOSPHORUS (test code = 7405847092) 2.9 mg/dL 2.5-5.0 Lab Interpretation (test code = Normal 47671-8) [facility] HospitalCREATINE [id number] 12:28:13 Test Item Value Reference Range Interpretation Comments CK (test code = 8640288933) 21 U/L 33-194 L Lab Interpretation (test code = Abnormal 86569-3) [facility] GLUCOSE (AUTOMATED)2022-08-06 11:29:35 Test Item Value Reference Range Interpretation Comments POCT GLU (test code = 5628056682) 275 mg/dL 70-110 H Lab Interpretation (test code = Abnormal 30092-7) [facility] GLUCOSE (AUTOMATED)2022-08-06 06:56:17 Test Item Value Reference Range Interpretation Comments POCT GLU (test code = 6247375238) 248 mg/dL 70-110 H Lab Interpretation (test code = Abnormal 38086-7) [facility] GLUCOSE (AUTOMATED)2022-08-06 02:34:33 Test Item Value Reference Range Interpretation Comments POCT GLU (test code = 3638246898) 255 mg/dL 70-110 H Lab Interpretation (test code = Abnormal 65689-8) [facility] GLUCOSE (AUTOMATED)2022-08-05 23:01:47 Test Item Value Reference Range Interpretation Comments POCT GLU (test code = 1688618803) 277 mg/dL 70-110 H Lab Interpretation (test code = Abnormal 34003-8) [facility] [id number] 22:36:41 Test Item Value Reference Interpretation Comments Range TROPONIN I (test 0.001 ng/mL See_Comment [Automated code = 5693534655) message] The system which generated this result [...] biotin. Lab Interpretation Normal (test code = 14896-0) [facility] GLUCOSE (AUTOMATED)2022-08-05 17:57:05 Test Item Value Reference Range Interpretation Comments POCT GLU (test code = 1352242680) 306 mg/dL 70-110 H Lab Interpretation (test code = Abnormal 64441-8) [facility] GLUCOSE (AUTOMATED)2022-08-05 13:44:12 Test Item Value Reference Range Interpretation Comments POCT GLU (test code = 5865856405) 376 mg/dL 70-110 H Lab Interpretation (test code = Abnormal 93809-3) [facility] [id number] 04:02:57 Test Item Value Reference Interpretation Comments Range TROPONIN I (test 0.001 ng/mL See_Comment [Automated code = 3637876060) message] The system which generated this result [...] biotin. Lab Interpretation Normal (test code = 45031-3) [facility]MINAL [id number] 03:59:58 Test Item Value Reference Range Interpretation Comments NT-proBNP (test code 100 pg/mL See_Comment [Autom ated = 6942797672) message] The system which generated this result transmitted reference range : <=125. The reference range was not used to interpret this result as normal/abnormal . JENNIFFER (test code = JENNIFFER) Biotin has been reported to cause a negative bias, interpret results relative to patient's use of biotin. Lab Interpretation Normal (test code = 99659-6) [facility] MET[facility]OLIC PANEL (41702)2022-06-05 03:50:53 Test Item Value Reference Range Interpretation Comments NA (test code = 139 mmol/L 135-145 2367072999) K (test code = 5.0 mmol/L 3.5-5.0 9421627423) CL (test code = 96 mmol/L 98-108 L 7007412058) CO2 TOTAL (test code = 38 mmol/L 23-31 H 1093762713) AGAP (test code = 2-16 7051489194) BUN (test code = 19 mg/dL 7-23 9625127617) GLUCOSE (test code = 186 mg/dL 70-110 H 3957400863) CREATININE (test code = 0.83 mg/dL 0.50-1.04 8124881069) TOTAL BILI (test code = 0.8 mg/dL 0.1-1.5 8592866241) CALCIUM (test code = 8.9 mg/dL 8.6-10.6 0403473235) T PROTEIN (test code = 7.4 g/dL 6.3-8.2 2290206188) ALBUMIN (test code = 4.3 g/dL 3.5-5.0 2821029697) ALK PHOS (test code = 102 U/L 34-122 8154129227) ALTv (test code = 33 U/L 5-35 2-6) AST(SGOT) (test code = 40 U/L 13-40 3575659602) eGFR (test code = mL/min/1.73m2 1284616274) JENNIFFER (test code = JENNIFFER) Association of [...] tests). Lab Interpretation Abnormal (test code = 12642-8) [facility] WITH [id number] 03:35:15 Test Item Value Reference Range Interpretation Comments WBC (test code = See_Comment [Automated 4290-2) message] The sy stem which generated this [...] RDW-SD (test code = 49.0 fL 39.0-49.9 01015-8) RDW-CV (test code = 15.4 % 12.0-15.5 788-0) PLT (test code = See_Comment [Automated 777-3) message] The sy stem which generated this result transmitted reference range : 166 - 358 10*3/ ?L. The reference r josselyn was not used to interpret this result as normal/abnormal . MPV (test code = 9.0 fL 9.5-12.9 L 89437-4) NRBC/100 WBC (test See_Comment [Automat ed code = 2978959167) message] The system which generated this result transmitted reference range : 0.0 - 10.0 /100 WBCs. The refer ence range was not u sed to interpret th is result as normal/abnormal . NRBC x10^3 (test code See_Comment [Auto mated = 5683442224) message] The s ystem which generated this result transmitted reference range : 10*3/?L. The reference range was not used to interpret this result as normal/abnormal . GRAN MAT (NEUT) % 85.5 % (test code = 770-8) IMM GRAN % (test code 0.60 % = 8223194403) LYMPH % (test code = 7.7 % 736-9) MONO % (test code = 4.0 % 5905-5) EOS % (test code = 1.6 % 713-8) BASO % (test code = 0.6 % 706-2) GRAN MAT x10^3(ANC) 8.05 10*3/uL 1.88-7.09 H (test code = 7952338294) IMM GRAN x10^3 (test 0.06 10*3/uL 0.00-0.06 code = 1153324633) LYMPH x10^3 (test code 0.73 10*3/uL 1.32-3.29 L = 731-0) MONO x10^3 (test code 0.38 10*3/uL 0.33-0.92 = 742-7) EOS x10^3 (test code = 0.15 10*3/uL 0.03-0.39 711-2) BASO x10^3 (test code 0.06 10*3/uL 0.01-0.07 = 704-7) Lab Interpretation Abnormal (test code = 32728-3) [facility] [id number] 06:26:12 Test Item Value Reference Interpretation Comments Range TROPONIN I (test 0.002 ng/mL See_Comment [Automated code = 9030080191) message] The system which generated this result [...] biotin. Lab Interpretation Normal (test code = 43941-3) [facility] [id number] 06:23:11 Test Item Value Reference Range Interpretation Comments NT-proBNP (test code 81 pg/mL See_Comment [Autom ated = 1201313863) message] The system which generated this result transmitted reference range : <=125. The reference range was not used to interpret this result as normal/abnormal . JENNIFFER (test code = JENNIFFER) Biotin has been reported to cause a negative bias, interpret results relative to patient's use of biotin. Lab Interpretation Normal (test code = 99624-1) [facility] PAN[facility] 21 + LACTIC [id number] 06:21:05 Test Item Value Reference Range Interpretation Comments PH (test code = 7.32-7.42 L 3018038701) PCO2 CELIA (test code = See_Comment H [Auto mated 1225263662) message] The sy stem which generated this result transmitted reference range : 41 - 51 mmHg. The reference range was not used to interpret this result as normal/abnormal . PO2 CELIA (test code = See_Comment L [Autom ated 3706229012) message] The sy stem which generated this result transmitted reference range : 25 - 40 mmHg. The reference range was not used to interpret this result as normal/abnormal . HCO3 CELIA (test code = See_Comment H [Auto mated 9999437463) message] The sy stem which generated this result transmitted reference range : 24 - 28 mEq/L. The reference range was not used to interpret this result as normal/abnormal . AC VBE(BEAKER) (test mEq/L code = 0039096298) THB CELIA (test code = 12.3 g/dL 12-16 0355530226) %O2HB CELIA (test code = 38.2 % 52-63 L 5659101053) %COHB CELIA (test code = 0.7 % 0-1.5 6742989572) %METHB CELIA (test code = 0.3 % 0.4-1.5 L 6056763000) VOL%O2 CELIA (test code = 6.6 % 6-12 1081299180) NA (test code = 138 mmol/L 135-145 7302128834) K+ (test code = 4.2 mmol/L 3.5-5 1399666175) AC CA IONZ (test code = 4.70 mg/dL 4.5-5.3 9758563370) GLUCOSE (test code = 178 mg/dL 70-110 H 6759748188) LACTIC ACID (test code 1.11 mmol/L 0.5-2.2 = 8903808168) Lab Interpretation Abnormal (test code = 86426-1) [facility]. METABOLIC PANEL (96046)2022-05-02 06:14:48 Test Item Value Reference Range Interpretation Comments NA (test code = 140 mmol/L 135-145 2236562980) K (test code = 4.4 mmol/L 3.5-5 9583040677) CL (test code = 97 mmol/L 98-108 L 8259805943) CO2 TOTAL (test code = 35 mmol/L 23-31 H 4656569384) AGAP (test code = 2-16 6507232343) BUN (test code = 23 mg/dL 7-23 7654092832) GLUCOSE (test code = 185 mg/dL 70-110 H 1195297291) CREATININE (test code = 1.16 mg/dL 0.5-1.04 H 0230651060) TOTAL BILI (test code = 0.4 mg/dL 0.1-1.3 1510909112) CALCIUM (test code = 9.4 mg/dL 8.6-10.6 0348173706) T PROTEIN (test code = 7.3 g/dL 6.3-8.2 3286276625) ALBUMIN (test code = 4.4 g/dL 3.5-5 9285471037) ALK PHOS (test code = 112 U/L 34-122 7899251005) ALTv (test code = 47 U/L 5-35 H 1742-6) AST(SGOT) (test code = 47 U/L 13-40 H 5774892520) eGFR (test code = mL/min/1.73m2 2833010212) JENNIFFER (test code = JENNIFFER) Association of [...] tests). Lab Interpretation Abnormal (test code = 59583-6) [facility] 06:14:48 Test Item Value Reference Range Interpretation Comments MAGNESIUM (test code = 6578187346) 2.5 mg/dL 1.7-2.4 H Lab Interpretation (test code = Abnormal 23929-1) [facility] WITH [id number] 05:53:47 Test Item Value Reference Range Interpretation Comments WBC (test code = See_Comment [Automated 0190-2) message] The sy stem which generated this result transmitted reference range : 4.30 - 11.10 10*3/?L. The reference range was not used to interpret this result as normal/abnormal . RBC (test code = See_Comment [Automated 223-8) message] The sy stem which generated this [...] RDW-SD (test code = 47.2 fL 39-49.9 25476-6) RDW-CV (test code = 14.8 % 12-15.5 788-0) PLT (test code = See_Comment [Automated 777-3) message] The sy stem which generated this result transmitted reference range : 166 - 358 10*3/ ?L. The reference r josselyn was not used to interpret this result as normal/abnormal . MPV (test code = 9.1 fL 9.5-12.9 L 96003-3) NRBC/100 WBC (test See_Comment [Automat ed code = 3016716982) message] The system which generated this result transmitted reference range : 0.0 - 10.0 /100 WBCs. The refer ence range was not u sed to interpret th is result as normal/abnormal . NRBC x10^3 (test code See_Comment [Auto mated = 3459385361) message] The s ystem which generated this result transmitted reference range : 10*3/?L. The reference range was not used to interpret this result as normal/abnormal . GRAN MAT (NEUT) % 82.2 % (test code = 770-8) IMM GRAN % (test code 0.40 % = 9974895637) LYMPH % (test code = 10.2 % 736-9) MONO % (test code = 4.4 % 5905-5) EOS % (test code = 1.8 % 713-8) BASO % (test code = 1.0 % 706-2) GRAN MAT x10^3(ANC) 6.37 10*3/uL 1.88-7.09 (test code = 8085415473) IMM GRAN x10^3 (test 0.03 10*3/uL 0-0.06 code = 3103643855) LYMPH x10^3 (test code 0.79 10*3/uL 1.32-3.29 L = 731-0) MONO x10^3 (test code 0.34 10*3/uL 0.33-0.92 = 742-7) EOS x10^3 (test code = 0.14 10*3/uL 0.03-0.39 711-2) BASO x10^3 (test code 0.08 10*3/uL 0.01-0.07 H = 704-7) Lab Interpretation Abnormal (test code = 98506-0) [facility] [id number] 03:36:53 Test Item Value Reference Range Interpretation Comments NT-proBNP (test code 102 pg/mL See_Comment [Autom ated = 9160658635) message] The system which generated this result transmitted reference range : <=125. The reference range was not used to interpret this result as normal/abnormal . JENNIFFER (test code = JENNIFFER) Biotin has been reported to cause a negative bias, interpret results relative to patient's use of biotin. Lab Interpretation Normal (test code = 51448-0) [facility]TR[facility] [id number] 03:23:03 Test Item Value Reference Interpretation Comments Range TROPONIN I (test See_Comment [Automated code = 3745894795) message] The system which generated this result [...] biotin. Lab Interpretation Normal (test code = 32713-0) [facility]OL[facility] PAN[facility] (56121)2022-04-29 03:11:22 Test Item Value Reference Range Interpretation Comments NA (test code = 139 mmol/L 135-145 8250565035) K (test code = 4.6 mmol/L 3.5-5 4489801374) CL (test code = 94 mmol/L 98-108 L 9187528087) CO2 TOTAL (test code = 36 mmol/L 23-31 H 1071448979) AGAP (test code = 2-16 4583939433) BUN (test code = 23 mg/dL 7-23 1122201356) GLUCOSE (test code = 271 mg/dL 70-110 H 8391148480) CREATININE (test code = 0.91 mg/dL 0.5-1.04 8478527695) TOTAL BILI (test code = 0.5 mg/dL 0.1-1.2 1106336513) CALCIUM (test code = 9.3 mg/dL 8.6-10.6 4284069413) T PROTEIN (test code = 7.3 g/dL 6.3-8.2 0600808647) ALBUMIN (test code = 4.5 g/dL 3.5-5 7463622001) ALK PHOS (test code = 137 U/L 34-122 H 5170047589) ALTv (test code = 39 U/L 5-35 H 1742-6) AST(SGOT) (test code = 34 U/L 13-40 1573328757) eGFR (test code = mL/min/1.73m2 4082826504) JENNIFFER (test code = JENNIFFER) Association of [...] tests). Lab Interpretation Abnormal (test code = 49539-5) [facility] HospitalACTIV[facility] PARTIAL THRMPLAS [id number] 03:09:40 Test Item Value Reference Range Interpretation Comments APTT Patient (test See_Comment [Automat ed code = 3173-2) message] The system which generated this result transmitted reference range : 23 - 38 Seconds . The reference range was not used to interpr et this result as normal/abnormal . JENNIFFER (test code = JENNIFFER) The [facility] patient population mean normal value for aPTT is 30 seconds. Lab Interpretation Normal (test code = 70694-8) [facility] HospitalPROTHROMBIN TIME / [id number] 03:07:39 Test Item Value Reference Range Interpretation [...] tions. Lab Interpretation (test Normal code = 06787-5) [facility] WITH [id number] 02:58:01 Test Item Value Reference Range Interpretation Comments WBC (test code = See_Comment H [Automated 5090-2) message] The system which generated this result transmit alden reference range : 4.30 - 11.10 10*3/?L. The reference range was not used to interpret this result as normal/abnormal . RBC (test code = See_Comment [Automated 929-8) message] The system which generated this result [...] RDW-SD (test code = 47.9 fL 39-49.9 07038-5) RDW-CV (test code = 14.8 % 12-15.5 788-0) PLT (test code = See_Comment [Automated 777-3) message] The system which generated this result transmit alden reference range : 166 - 358 10*3/ ?L. The reference range was not u sed to interpret th is result as normal/abnormal . MPV (test code = 9.0 fL 9.5-12.9 L 18091-6) NRBC/100 WBC (test See_Comment [Automat ed code = 6425884798) message] The system which generated this result transmit alden reference range : 0.0 - 10.0 /100 WBCs. The reference range was not used to interpret this result as normal/abnormal . NRBC x10^3 (test code See_Comment [Auto mated = 4208138350) message] The system which generated this result transmit alden reference range : 10*3/?L. The reference range was not used to interpret this result as normal/abnormal . GRAN MAT (NEUT) % 85.4 % (test code = 770-8) IMM GRAN % (test code 0.40 % = 8362478121) LYMPH % (test code = 7.5 % 736-9) MONO % (test code = 5.0 % 5905-5) EOS % (test code = 1.1 % 713-8) BASO % (test code = 0.6 % 706-2) GRAN MAT x10^3(ANC) 10.20 10*3/uL 1.88-7.09 H (test code = 7015462496) IMM GRAN x10^3 (test 0.05 10*3/uL 0-0.06 code = 4667577903) LYMPH x10^3 (test code 0.89 10*3/uL 1.32-3.29 L = 731-0) MONO x10^3 (test code 0.60 10*3/uL 0.33-0.92 = 742-7) EOS x10^3 (test code = 0.13 10*3/uL 0.03-0.39 711-2) BASO x10^3 (test code 0.07 10*3/uL 0.01-0.07 = 704-7) Lab Interpretation Abnormal (test code = 98951-6) [facility] GLUCOSE (AUTOMATED)2022-02-27 20:32:53 Test Item Value Reference Range Interpretation Comments POCT GLU (test code = 6660281508) 236 mg/dL 70-110 H Lab Interpretation (test code = Abnormal 51241-8) [facility] GLUCOSE (AUTOMATED)2022-02-27 16:22:28 Test Item Value Reference Range Interpretation Comments POCT GLU (test code = 3499193071) 242 mg/dL 70-110 H Lab Interpretation (test code = Abnormal 08852-2) [facility] GLUCOSE (AUTOMATED)2022-02-27 12:34:52 Test Item Value Reference Range Interpretation Comments POCT GLU (test code = 1408430305) 195 mg/dL 70-110 H Lab Interpretation (test code = Abnormal 88930-8) [facility] GLUCOSE (AUTOMATED)2022-02-26 21:43:40 Test Item Value Reference Range Interpretation Comments POCT GLU (test code = 8029152407) 315 mg/dL 70-110 H Lab Interpretation (test code = Abnormal 67706-1) [facility] GLUCOSE (AUTOMATED)2022-02-26 17:51:09 Test Item Value Reference Range Interpretation Comments POCT GLU (test code = 1827310283) 316 mg/dL 70-110 H Lab Interpretation (test code = Abnormal 25006-2) [facility] GLUCOSE (AUTOMATED)2022-02-26 14:27:56 Test Item Value Reference Range Interpretation Comments POCT GLU (test code = 0767283713) 226 mg/dL 70-110 H Lab Interpretation (test code = Abnormal 54555-5) [facility] HospitalBLO[facility] C[facility] [id number] 10:01:38 Test Item Value Reference Range Interpretation Comments Blood Culture-Aerobic No organisms No growth Previo us (test code = 44619-0) isolated prelim inary verified result was Culture [...] Culture-Anaerobic isolated preliminar y (test code = 01965-6) verifi ed result was Culture In Progress [...] CDT Lab Interpretation Normal (test code = 62784-4) [facility] GLUCOSE (AUTOMATED)2022-02-26 01:34:43 Test Item Value Reference Range Interpretation Comments POCT GLU (test code = 2630893441) 253 mg/dL 70-110 H Lab Interpretation (test code = Abnormal 55665-0) [facility] GLUCOSE (AUTOMATED)2022-02-25 20:41:07 Test Item Value Reference Range Interpretation Comments POCT GLU (test code = 9327057860) 260 mg/dL 70-110 H Lab Interpretation (test code = Abnormal 67983-7) [facility] GLUCOSE (AUTOMATED)2022-02-25 16:40:46 Test Item Value Reference Range Interpretation Comments POCT GLU (test code = 1260133304) 245 mg/dL 70-110 H Lab Interpretation (test code = Abnormal 01586-2) [facility] Arterial Blood Gas.2022-02-25 14:15:07 Test Item Value Reference Range Interpretation Comments PH (test code = 2) 7.35-7.45 H PCO2 (test code = See_Comment H [Automate d message] 9732434259) The system [employer] generated this result transmitted ref erence range: 35 - 45 mmHg. The reference r josselyn was not used to interpret this result as normal/abnor mal. PO2 (test code = See_Comment [Automated message] 1064138785) The system [employer] generated this result transmitted ref erence range: 80 - 100 mmHg. The reference r josselyn was not used to interpret this result as normal/abnor mal. HCO3 (test code = See_Comment H [Automate d message] 1189665586) The system [employer] generated this result transmitted ref erence range: 22 - 26 mEq/L. The reference r josselyn was not used to interpret this result as normal/abnor mal. BE (test code = See_Comment H [Automated message] 3917601662) The system [employer] generated this result transmitted ref erence range: -3.0 - 3 .0 mEq/L. The refe rence range was not u sed to interpret this result as normal/abnor mal. Lab Interpretation (test Abnormal code = 78686-3) [facility] GLUCOSE (AUTOMATED)2022-02-25 12:53:11 Test Item Value Reference Range Interpretation Comments POCT GLU (test code = 8834947150) 194 mg/dL 70-110 H Lab Interpretation (test code = Abnormal 95594-4) [facility] METABOLIC PANEL (NA, K, CL, CO2, GLUCOSE, BUN, CREATININE, CA)2022-02-25 12:18:22 Test Item Value Reference Range Interpretation Comments NA (test code = 135 mmol/L 135-145 4905644086) K (test code = 3.5 mmol/L 3.5-5 7427537789) CL (test code = 97 mmol/L 98-108 L 0822291481) CO2 TOTAL (test code = 37 mmol/L 23-31 H 3844339548) AGAP (test code = 2-16 L 3348020550) BUN (test code = 36 mg/dL 7-23 H 0911703436) GLUCOSE (test code = 172 mg/dL 70-110 H 6674647608) CREATININE (test code = 1.57 mg/dL 0.5-1.04 H 4982319241) CALCIUM (test code = 9.0 mg/dL 8.6-10.6 6697744516) eGFR (test code = mL/min/1.73m2 8673351966) JENNIFFER (test code = JENNIFFER) Association of [...] tests). Lab Interpretation Abnormal (test code = 74449-8) [facility]22 Test Item Value Reference Range Interpretation Comments MAGNESIUM (test code = 9904948980) 1.7 mg/dL 1.7-2.4 Lab Interpretation (test code = Normal 48499-3) [facility] 12:18:22 Test Item Value Reference Range Interpretation Comments PHOSPHORUS (test code = 2161274235) 2.7 mg/dL 2.5-5 Lab Interpretation (test code = Normal 06623-6) [facility] GLUCOSE (AUTOMATED)2022-02-25 01:26:19 Test Item Value Reference Range Interpretation Comments POCT GLU (test code = 3508345024) 180 mg/dL 70-110 H Lab Interpretation (test code = Abnormal 71898-5) [facility] GLUCOSE (AUTOMATED)2022-02-24 20:51:23 Test Item Value Reference Range Interpretation Comments POCT GLU (test code = 0943738621) 206 mg/dL 70-110 H Lab Interpretation (test code = Abnormal 12973-5) [facility] Arterial Blood Gas.2022-02-24 17:04:22 Test Item Value Reference Range Interpretation Comments PH (test code = 2) 7.35-7.45 H PCO2 (test code = See_Comment [Automate d message] 1404332088) The system [employer] generated this result transmitted ref erence range: 35 - 45 mmHg. The reference r josselyn was not used to interpret this result as normal/abnor mal. PO2 (test code = See_Comment H [Automated message] 5172269381) The system [employer] generated this result transmitted ref erence range: 80 - 100 mmHg. The reference r josselyn was not used to interpret this result as normal/abnor mal. HCO3 (test code = See_Comment H [Automate d message] 4404743340) The system [employer] generated this result transmitted ref erence range: 22 - 26 mEq/L. The reference r josselyn was not used to interpret this result as normal/abnor mal. BE (test code = See_Comment H [Automated message] 4264802755) The system [employer] generated this result transmitted ref erence range: -3.0 - 3 .0 mEq/L. The refe rence range was not u sed to interpret this result as normal/abnor mal. Lab Interpretation (test Abnormal code = 85390-6) [facility]-24 17:00:46 Test Item Value Reference Range Interpretation Comments POCT GLU (test code = 7193840305) 230 mg/dL 70-110 H Lab Interpretation (test code = Abnormal 73511-7) [facility] [id number] 13:31:58 Test Item Value Reference Interpretation Comments Range TROPONIN I (test 0.002 ng/mL See_Comment [Automated code = 2407711343) message] The system which generated this result [...] biotin. Lab Interpretation Normal (test code = 07307-0) [facility]2022-02-24 13:24:56 Test Item Value Reference Range Interpretation Comments POCT GLU (test code = 7542814535) 252 mg/dL 70-110 H Lab Interpretation (test code = Abnormal 63438-7) [facility] (NA, K, CL, CO2, GLUCOSE, BUN, CREATININE, CA)2022-02-24 13:21:38 Test Item Value Reference Range Interpretation Comments NA (test code = 138 mmol/L 135-145 3794759653) K (test code = 4.3 mmol/L 3.5-5 3616729246) CL (test code = 94 mmol/L 98-108 L 1006409431) CO2 TOTAL (test code = 39 mmol/L 23-31 H 6215125009) AGAP (test code = 2-16 5148176597) BUN (test code = 31 mg/dL 7-23 H 3241788712) GLUCOSE (test code = 237 mg/dL 70-110 H 6327193664) CREATININE (test code = 1.46 mg/dL 0.5-1.04 H 1688562104) CALCIUM (test code = 9.2 mg/dL 8.6-10.6 8023258965) eGFR (test code = mL/min/1.73m2 2438218598) JENNIFFER (test code = JENNIFFER) Association of [...] tests). Lab Interpretation Abnormal (test code = 73627-6) [facility] Whole [id number] 03:18:42 Test Item Value Reference Range Interpretation Comments LACTIC ACID (test code = 0.92 mmol/L 0.5-2.2 2424434714) Lab Interpretation (test code = Normal 85345-9) [facility] GLUCOSE (AUTOMATED)2022-02-24 01:21:36 Test Item Value Reference Range Interpretation Comments POCT GLU (test code = 0345049240) 200 mg/dL 70-110 H Lab Interpretation (test code = Abnormal 40304-4) [facility] GLUCOSE (AUTOMATED)2022-02-23 22:45:38 Test Item Value Reference Range Interpretation Comments POCT GLU (test code = 4200841142) 246 mg/dL 70-110 H Lab Interpretation (test code = Abnormal 67458-1) [facility] GLUCOSE (AUTOMATED)2022-02-23 21:47:33 Test Item Value Reference Range Interpretation Comments POCT GLU (test code = 261 mg/dL 70-110 H Notifi ed Provider 2602719693) Lab Interpretation (test Abnormal code = 30645-6) [facility] + Lactic [id number] 18:40:55 Test Item Value Reference Range Interpretation Comments PH (test code = 2) 7.35-7.45 PCO2 (test code = See_Comment H [Automate d 9401845882) message] The sy stem which generated this result transmitted reference range : 35 - 45 mmHg. The reference range was not used to interpret this result as normal/abnormal . PO2 (test code = See_Comment H [Automated 1784771579) message] The sy stem which generated this result transmitted reference range : 80 - 100 mmHg. The reference range was not used to interpret this result as normal/abnormal . HCO3 (test code = See_Comment H [Automate d 0147786765) message] The sy stem which generated this result transmitted reference range : 22 - 26 mEq/L. The reference range was not used to interpret this result as normal/abnormal . BE (test code = See_Comment H [Automated 4102994217) message] The sy stem which generated this result transmitted reference range : -3.0 - 3.0 mEq/ L. The reference r josselyn was not used to interpret this result as normal/abnormal . THB (test code = 10.1 g/dL 12-16 L 4197732397) %O2HB (test code = 98.2 % 94-99 7306135131) %COHB ART (test code = 0.0 % 0-1.5 9554336392) %METHB ART (test code = 0.2 % 0.4-1.5 L 2676323742) VOL%O2 ART (test code = 14.2 % 15-23 L 9917375567) NA (test code = 142 mmol/L 135-145 5019275954) K+ (test code = 3.9 mmol/L 3.5-5 0644100514) AC CA IONZ (test code = 4.60 mg/dL 4.5-5.3 9962497995) GLUCOSE (test code = 201 mg/dL 70-110 H 2499371238) LACTIC ACID (test code 0.99 mmol/L 0.5-2.2 = 5992032323) Lab Interpretation Abnormal (test code = 82704-3) [facility]2022-02-23 17:20:26 Test Item Value Reference Range Interpretation Comments POCT GLU (test code = 222 mg/dL 70-110 H Notifi ed Provider 3560758942) Lab Interpretation (test Abnormal code = 54076-4) [facility] GLUCOSE (AUTOMATED)2022-02-23 13:23:49 Test Item Value Reference Range Interpretation Comments POCT GLU (test code = 188 mg/dL 70-110 H Notifi ed Provider 2104944290) Lab Interpretation (test Abnormal code = 26693-8) [facility] GLUCOSE (AUTOMATED)2022-02-22 21:57:50 Test Item Value Reference Range Interpretation Comments POCT GLU (test code = 5293113725) 240 mg/dL 70-110 H Lab Interpretation (test code = Abnormal 43914-3) [facility] GLUCOSE (AUTOMATED)2022-02-22 18:33:41 Test Item Value Reference Range Interpretation Comments POCT GLU (test code = 5479327905) 247 mg/dL 70-110 H Lab Interpretation (test code = Abnormal 53562-2) [facility] [id number] 15:54:13 Test Item Value Reference Range Interpretation Comments URINE CULTURE (test No aerobic growth (< code = 630-4) 1000 CFU/mL) [facility] (NA, K, CL, CO2, GLUCOSE, BUN, CREATININE, CA)2022-02-22 13:03:42 Test Item Value Reference Range Interpretation Comments NA (test code = 140 mmol/L 135-145 1328104263) K (test code = 3.7 mmol/L 3.5-5 3580801809) CL (test code = 95 mmol/L 98-108 L 2247054826) CO2 TOTAL (test code = 40 mmol/L 23-31 H 3838031255) AGAP (test code = 2-16 0982040541) BUN (test code = 19 mg/dL 7-23 6210149782) GLUCOSE (test code = 167 mg/dL 70-110 H 5974543800) CREATININE (test code = 0.85 mg/dL 0.5-1.04 8140961697) CALCIUM (test code = 9.0 mg/dL 8.6-10.6 6117394039) eGFR (test code = mL/min/1.73m2 3714364632) JENNIFFER (test code = JENNIFFER) Association of [...] tests). Lab Interpretation Abnormal (test code = 39126-1) [facility] 12:14:43 Test Item Value Reference Range Interpretation Comments MAGNESIUM (test code = 4707550497) 2.3 mg/dL 1.7-2.4 Lab Interpretation (test code = Normal 18205-3) [facility] WITH [id number] 11:52:02 Test Item Value Reference Range Interpretation Comments WBC (test code = See_Comment [Automated 5790-2) message] The sy stem which generated this result transmitted reference range : 4.30 - 11.10 10*3/?L. The reference range was not used to interpret this result as normal/abnormal . RBC (test code = See_Comment L [Automated 659-8) message] The sy stem which generated this [...] RDW-SD (test code = 48.7 fL 39-49.9 92129-6) RDW-CV (test code = 15.2 % 12-15.5 788-0) PLT (test code = See_Comment [Automated 777-3) message] The sy stem which generated this result transmitted reference range : 166 - 358 10*3/ ?L. The reference r josselyn was not used to interpret this result as normal/abnormal . MPV (test code = 8.9 fL 9.5-12.9 L 19744-0) NRBC/100 WBC (test See_Comment [Automat ed code = 6889369597) message] The system which generated this result transmitted reference range : 0.0 - 10.0 /100 WBCs. The refer ence range was not u sed to interpret th is result as normal/abnormal . NRBC x10^3 (test code See_Comment [Auto mated = 1081208582) message] The s ystem which generated this result transmitted reference range : 10*3/?L. The reference range was not used to interpret this result as normal/abnormal . GRAN MAT (NEUT) % 70.5 % (test code = 770-8) IMM GRAN % (test code 0.70 % = 3678009472) LYMPH % (test code = 18.8 % 736-9) MONO % (test code = 7.9 % 5905-5) EOS % (test code = 1.2 % 713-8) BASO % (test code = 0.9 % 706-2) GRAN MAT x10^3(ANC) 4.04 10*3/uL 1.88-7.09 (test code = 2691783167) IMM GRAN x10^3 (test 0.04 10*3/uL 0-0.06 code = 7916067766) LYMPH x10^3 (test code 1.08 10*3/uL 1.32-3.29 L = 731-0) MONO x10^3 (test code 0.45 10*3/uL 0.33-0.92 = 742-7) EOS x10^3 (test code = 0.07 10*3/uL 0.03-0.39 711-2) BASO x10^3 (test code 0.05 10*3/uL 0.01-0.07 = 704-7) Lab Interpretation Abnormal (test code = 58454-9) [facility] GLUCOSE (AUTOMATED)2022-02-22 01:40:53 Test Item Value Reference Range Interpretation Comments POCT GLU (test code = 3493511059) 246 mg/dL 70-110 H Lab Interpretation (test code = Abnormal 68717-6) [facility] GLUCOSE (AUTOMATED)2022-02-21 22:04:44 Test Item Value Reference Range Interpretation Comments POCT GLU (test code = 7474555821) 293 mg/dL 70-110 H Lab Interpretation (test code = Abnormal 67215-6) [facility] WITHOUT [id number] 16:03:44 Test Item Value Reference Range Interpretation Comments WBC (test code = 6690-2) See_Comment [A utomated message] The system [employer] generated this result transmit alden reference range : 4.30 - 11.10 10*3/?L. The reference range was not used to interpret this result as normal/abnormal . RBC (test code = 789-8) See_Comment L [Au tomated message] The system [employer] generated this result transmit alden reference range [...] 777-3) See_Comment [Au tomated message] The system [employer] generated this result transmit alden reference range : 166 - 358 10*3/?L. The reference range was not used to interpret this result as normal/abnormal . MPV (test code = 9.2 fL 9.5-12.9 L 25063-3) RDW-CV (test code = 15.7 % 12-15.5 H 788-0) RDW-SD (test code = 50.9 fL 39-49.9 H 42115-4) NRBC x10^3 (test code = See_Comment [Au tomated message] 6448800468) The system [employer] generated this result transmit alden reference range : 10*3/?L. The reference range was not used to interpret this result as normal/abnormal . NRBC/100 WBC (test code See_Comment [Au tomated message] = 5855800788) The system [employer] generated this result transmit alden reference range : 0.0 - 10.0 /100 WBC s. The reference r josselyn was not used to interpret this result as normal/abnormal . IPF % (test code = 3053500083) Lab Interpretation (test Abnormal code = 96180-6) [facility]22-[facility]-21 14:46:08 Test Item Value Reference Range Interpretation Comments POCT GLU (test code = 6481495023) 157 mg/dL 70-110 H Lab Interpretation (test code = Abnormal 30108-7) [facility] METABOLIC PANEL (NA, K, CL, CO2, GLUCOSE, BUN, CREATININE, CA)2022-02-21 09:05:34 Test Item Value Reference Range Interpretation Comments NA (test code = 143 mmol/L 135-145 1311494847) K (test code = 3.8 mmol/L 3.5-5 2333420956) CL (test code = 99 mmol/L 98-108 6939227819) CO2 TOTAL (test code = 37 mmol/L 23-31 H 3579186866) AGAP (test code = 2-16 8788590645) BUN (test code = 17 mg/dL 7-23 8624058381) GLUCOSE (test code = 140 mg/dL 70-110 H 4148294543) CREATININE (test code = 0.85 mg/dL 0.5-1.04 9658477587) CALCIUM (test code = 8.9 mg/dL 8.6-10.6 3577804300) eGFR (test code = mL/min/1.73m2 3579312193) JENNIFFER (test code = JENNIFFER) Association of [...] tests). Lab Interpretation Abnormal (test code = 64991-1) [facility] 08:53:13 Test Item Value Reference Range Interpretation Comments MAGNESIUM (test code = 3215062969) 2.3 mg/dL 1.7-2.4 Lab Interpretation (test code = Normal 80095-6) [facility] WITH [id number] 08:13:50 Test Item Value Reference Range Interpretation [...] (test code = 51.5 fL 39-49.9 H 27424-8) RDW-CV (test code = 15.5 % 12-15.5 788-0) PLT (test code = See_Comment L [Automated 777-3) message] The sy stem which generated this result transmitted reference range : 166 - 358 10*3/ ?L. The reference r josselyn was not used to interpret this result as normal/abnormal . MPV (test code = 9.0 fL 9.5-12.9 L 67626-5) NRBC/100 WBC (test See_Comment [Automat ed code = 2893401261) message] The system which generated this result transmitted reference range : 0.0 - 10.0 /100 WBCs. The refer ence range was not u sed to interpret th is result as normal/abnormal . NRBC x10^3 (test code See_Comment [Auto mated = 4995315502) message] The s ystem which generated this result transmitted reference range : 10*3/?L. The reference range was not used to interpret this result as normal/abnormal . GRAN MAT (NEUT) % 68.2 % (test code = 770-8) IMM GRAN % (test code 0.60 % = 2108075520) LYMPH % (test code = 20.0 % 736-9) MONO % (test code = 8.1 % 5905-5) EOS % (test code = 2.0 % 713-8) BASO % (test code = 1.1 % 706-2) GRAN MAT x10^3(ANC) 3.72 10*3/uL 1.88-7.09 (test code = 2924109536) IMM GRAN x10^3 (test 0.03 10*3/uL 0-0.06 code = 0618142610) LYMPH x10^3 (test code 1.09 10*3/uL 1.32-3.29 L = 731-0) MONO x10^3 (test code 0.44 10*3/uL 0.33-0.92 = 742-7) EOS x10^3 (test code = 0.11 10*3/uL 0.03-0.39 711-2) BASO x10^3 (test code 0.06 10*3/uL 0.01-0.07 = 704-7) Lab Interpretation Abnormal (test code = 61239-3) [facility]21 02:41:53 Test Item Value Reference Range Interpretation Comments POCT GLU (test code = 9241735975) 175 mg/dL 70-110 H Lab Interpretation (test code = Abnormal 24787-5) [facility] Arterial Blood Gas.2022-02-20 23:27:23 Test Item Value Reference Range Interpretation Comments PH (test code = 2) 7.35-7.45 L PCO2 (test code = See_Comment H [Automate d message] 6849210121) The system [employer] generated this result transmitted ref erence range: 35 - 45 mmHg. The reference r josselyn was not used to interpret this result as normal/abnor mal. PO2 (test code = See_Comment H [Automated message] 4897202247) The system [employer] generated this result transmitted ref erence range: 80 - 100 mmHg. The reference r josselyn was not used to interpret this result as normal/abnor mal. HCO3 (test code = See_Comment H [Automate d message] 2681553483) The system [employer]ic h generated this result transmitted ref erence range: 22 - 26 mEq/L. The reference r josselyn was not used to interpret this result as normal/abnor mal. BE (test code = See_Comment H [Automated message] 2395440017) The system [employer] generated this result transmitted ref erence range: -3.0 - 3 .0 mEq/L. The refe rence range was not u sed to interpret this result as normal/abnor mal. Lab Interpretation (test Abnormal code = 23893-3) [facility] WITH [id number] 20:32:34 Test Item Value Reference Range Interpretation [...] (test code = 51.8 fL 39-49.9 H 40719-5) RDW-CV (test code = 15.7 % 12-15.5 H 788-0) PLT (test code = See_Comment [Automated 777-3) message] The sy stem which generated this result transmitted reference range : 166 - 358 10*3/ ?L. The reference r josselyn was not used to interpret this result as normal/abnormal . MPV (test code = 8.9 fL 9.5-12.9 L 35230-6) NRBC/100 WBC (test See_Comment [Automat ed code = 8718001454) message] The system which generated this result transmitted reference range : 0.0 - 10.0 /100 WBCs. The refer ence range was not u sed to interpret th is result as normal/abnormal . NRBC x10^3 (test code See_Comment [Auto mated = 1644583087) message] The s ystem which generated this result transmitted reference range : 10*3/?L. The reference range was not used to interpret this result as normal/abnormal . GRAN MAT (NEUT) % 72.1 % (test code = 770-8) IMM GRAN % (test code 1.20 % = 9911749417) LYMPH % (test code = 16.2 % 736-9) MONO % (test code = 7.1 % 5905-5) EOS % (test code = 2.3 % 713-8) BASO % (test code = 1.1 % 706-2) GRAN MAT x10^3(ANC) 7.28 10*3/uL 1.88-7.09 H (test code = 4068191497) IMM GRAN x10^3 (test 0.12 10*3/uL 0-0.06 H code = 9235870637) LYMPH x10^3 (test code 1.63 10*3/uL 1.32-3.29 = 731-0) MONO x10^3 (test code 0.72 10*3/uL 0.33-0.92 = 742-7) EOS x10^3 (test code = 0.23 10*3/uL 0.03-0.39 711-2) BASO x10^3 (test code 0.11 10*3/uL 0.01-0.07 H = 704-7) Lab Interpretation Abnormal (test code = 49059-0) [facility] GLUCOSE (AUTOMATED)2022-02-17 21:46:17 Test Item Value Reference Range Interpretation Comments POCT GLU (test code = 8345403773) 181 mg/dL 70-110 H Lab Interpretation (test code = Abnormal 45355-2) [facility] GLUCOSE (AUTOMATED)2022-02-17 17:09:48 Test Item Value Reference Range Interpretation Comments POCT GLU (test code = 6929813293) 191 mg/dL 70-110 H Lab Interpretation (test code = Abnormal 70401-6) [facility] GLUCOSE (AUTOMATED)2022-02-17 13:07:24 Test Item Value Reference Range Interpretation Comments POCT GLU (test code = 4018521911) 185 mg/dL 70-110 H Lab Interpretation (test code = Abnormal 82709-5) [facility] Culture - Peripheral # [id number] 02:02:05 Test Item Value Reference Range Interpretation Comments Blood Culture-Aerobic No organisms No growth Previo us (test code = 28478-7) isolated prelim inary verified result was Culture [...] Culture-Anaerobic isolated preliminar y (test code = 31454-7) verifi ed result was Culture In Progress [...] CDT Lab Interpretation Normal (test code = 23225-7) [facility] GLUCOSE (AUTOMATED)2022-02-17 00:50:32 Test Item Value Reference Range Interpretation Comments POCT GLU (test code = 4868083622) 152 mg/dL 70-110 H Lab Interpretation (test code = Abnormal 72219-0) [facility] GLUCOSE (AUTOMATED)2022-02-16 21:47:16 Test Item Value Reference Range Interpretation Comments POCT GLU (test code = 0633037577) 183 mg/dL 70-110 H Lab Interpretation (test code = Abnormal 19635-2) [facility] GLUCOSE (AUTOMATED)2022-02-16 17:08:26 Test Item Value Reference Range Interpretation Comments POCT GLU (test code = 8243310697) 160 mg/dL 70-110 H Lab Interpretation (test code = Abnormal 17510-6) [facility] GLUCOSE (AUTOMATED)2022-02-16 13:06:01 Test Item Value Reference Range Interpretation Comments POCT GLU (test code = 5655662365) 140 mg/dL 70-110 H Lab Interpretation (test code = Abnormal 41254-3) [facility] GLUCOSE (AUTOMATED)2022-02-16 08:33:41 Test Item Value Reference Range Interpretation Comments POCT GLU (test code = 2921404731) 193 mg/dL 70-110 H Lab Interpretation (test code = Abnormal 40335-1) [facility] GLUCOSE (AUTOMATED)2022-02-16 04:30:38 Test Item Value Reference Range Interpretation Comments POCT GLU (test code = 6098274171) 167 mg/dL 70-110 H Lab Interpretation (test code = Abnormal 66711-2) [facility] GLUCOSE (AUTOMATED)2022-02-16 00:40:50 Test Item Value Reference Range Interpretation Comments POCT GLU (test code = 0688974075) 190 mg/dL 70-110 H Lab Interpretation (test code = Abnormal 90568-1) [facility] GLUCOSE (AUTOMATED)2022-02-15 21:26:07 Test Item Value Reference Range Interpretation Comments POCT GLU (test code = 8702937111) 189 mg/dL 70-110 H Lab Interpretation (test code = Abnormal 56331-9) [facility] GLUCOSE (AUTOMATED)2022-02-15 17:00:52 Test Item Value Reference Range Interpretation Comments POCT GLU (test code = 0288532597) 213 mg/dL 70-110 H Lab Interpretation (test code = Abnormal 62530-4) [facility] GLUCOSE (AUTOMATED)2022-02-15 12:48:04 Test Item Value Reference Range Interpretation Comments POCT GLU (test code = 3691287712) 145 mg/dL 70-110 H Lab Interpretation (test code = Abnormal 91945-7) [facility]. METABOLIC PANEL ([id number])2022-02-15 08:28:08 Test Item Value Reference Range Interpretation Comments NA (test code = 140 mmol/L 135-145 3882578321) K (test code = 4.0 mmol/L 3.5-5 6787341526) CL (test code = 100 mmol/L 98-108 9809806166) CO2 TOTAL (test code = 35 mmol/L 23-31 H 5957783513) AGAP (test code = 2-16 1701507250) BUN (test code = 12 mg/dL 7-23 2630904035) GLUCOSE (test code = 161 mg/dL 70-110 H 4725553060) CREATININE (test code = 1.20 mg/dL 0.5-1.04 H 0505765723) TOTAL BILI (test code = 0.6 mg/dL 0.1-1.6 9723918163) CALCIUM (test code = 8.7 mg/dL 8.6-10.6 5370325670) T PROTEIN (test code = 6.8 g/dL 6.3-8.2 3253806622) ALBUMIN (test code = 3.7 g/dL 3.5-5 1857938855) ALK PHOS (test code = 121 U/L 34-122 9999904053) ALTv (test code = 35 U/L 5-35 1742-6) AST(SGOT) (test code = 34 U/L 13-40 0453061035) eGFR (test code = mL/min/1.73m2 4707328226) JENNIFFER (test code = JENNIFFER) Association of [...] tests). Lab Interpretation Abnormal (test code = 98910-0) [facility]08 Test Item Value Reference Range Interpretation Comments MAGNESIUM (test code = 5720885998) 2.4 mg/dL 1.7-2.4 Lab Interpretation (test code = Normal 45707-2) [facility] [id number] 08:07:28 Test Item Value Reference Range Interpretation Comments WBC (test code = 6690-2) See_Comment [A utomated message] The system [employer] generated this result transmit alden reference range : 4.30 - 11.10 10*3/?L. The reference range was not used to interpret this result as normal/abnormal . RBC (test code = 789-8) See_Comment L [Au tomated message] The system [employer] generated this result transmit alden reference range [...] 777-3) See_Comment [Au tomated message] The system [employer] generated this result transmit alden reference range : 166 - 358 10*3/?L. The reference range was not used to interpret this result as normal/abnormal . MPV (test code = 8.9 fL 9.5-12.9 L 97243-6) RDW-CV (test code = 16.2 % 12-15.5 H 788-0) RDW-SD (test code = 52.6 fL 39-49.9 H 97052-3) NRBC x10^3 (test code = See_Comment [Au tomated message] 1825489206) The system [employer] generated this result transmit alden reference range : 10*3/?L. The reference range was not used to interpret this result as normal/abnormal . NRBC/100 WBC (test code See_Comment [Au tomated message] = 5613311402) The system [employer] generated this result transmit alden reference range : 0.0 - 10.0 /100 WBC s. The reference r josselyn was not used to interpret this result as normal/abnormal . IPF % (test code = 0071194415) Lab Interpretation (test Abnormal code = 53813-7) [facility] GLUCOSE (AUTOMATED)2022-02-15 08:03:53 Test Item Value Reference Range Interpretation Comments POCT GLU (test code = 5443791003) 179 mg/dL 70-110 H Lab Interpretation (test code = Abnormal 88987-3) [facility] GLUCOSE (AUTOMATED)2022-02-15 04:16:20 Test Item Value Reference Range Interpretation Comments POCT GLU (test code = 3804875111) 215 mg/dL 70-110 H Lab Interpretation (test code = Abnormal 79597-8) [facility] GLUCOSE (AUTOMATED)2022-02-15 00:50:30 Test Item Value Reference Range Interpretation Comments POCT GLU (test code = 4691828703) 229 mg/dL 70-110 H Lab Interpretation (test code = Abnormal 27296-2) [facility] GLUCOSE (AUTOMATED)2022-02-14 21:23:56 Test Item Value Reference Range Interpretation Comments POCT GLU (test code = 8443595773) 214 mg/dL 70-110 H Lab Interpretation (test code = Abnormal 91040-0) [facility] GLUCOSE (AUTOMATED)2022-02-14 19:38:54 Test Item Value Reference Range Interpretation Comments POCT GLU (test code = 7191573548) 236 mg/dL 70-110 H Lab Interpretation (test code = Abnormal 45937-8) [facility] GLUCOSE (AUTOMATED)2022-02-14 16:28:53 Test Item Value Reference Range Interpretation Comments POCT GLU (test code = 6228920664) 245 mg/dL 70-110 H Lab Interpretation (test code = Abnormal 09708-6) [facility] GLUCOSE (AUTOMATED)2022-02-14 14:17:55 Test Item Value Reference Range Interpretation Comments POCT GLU (test code = 4030565769) 259 mg/dL 70-110 H Lab Interpretation (test code = Abnormal 75204-5) [facility]. METABOLIC PANEL (52094)2022-02-14 10:33:43 Test Item Value Reference Range Interpretation Comments NA (test code = 139 mmol/L 135-145 8670713372) K (test code = 3.9 mmol/L 3.5-5 2327869609) CL (test code = 102 mmol/L 98-108 7482902613) CO2 TOTAL (test code = 33 mmol/L 23-31 H 9565077455) AGAP (test code = 2-16 1843466985) BUN (test code = 11 mg/dL 7-23 6383093662) GLUCOSE (test code = 162 mg/dL 70-110 H 6920666715) CREATININE (test code = 1.05 mg/dL 0.5-1.04 H 5937125236) TOTAL BILI (test code = 0.5 mg/dL 0.1-1.0 8994079366) CALCIUM (test code = 8.2 mg/dL 8.6-10.6 L 1093596429) T PROTEIN (test code = 6.1 g/dL 6.3-8.2 L 6383391246) ALBUMIN (test code = 3.2 g/dL 3.5-5 L 5282181039) ALK PHOS (test code = 113 U/L 34-122 5019968398) ALTv (test code = 37 U/L 5-35 H 1742-6) AST(SGOT) (test code = 29 U/L 13-40 6678601754) eGFR (test code = mL/min/1.73m2 6963363937) JENNIFFER (test code = JENNIFFER) Association of [...] tests). Lab Interpretation Abnormal (test code = 83741-2) [facility] 10:33:43 Test Item Value Reference Range Interpretation Comments MAGNESIUM (test code = 9914788186) 2.2 mg/dL 1.7-2.4 Lab Interpretation (test code = Normal 57304-0) [facility] WITH [id number] 10:26:41 Test Item Value Reference Range Interpretation Comments WBC (test code = See_Comment [Automated 8390-2) message] The sy stem which generated this [...] (test code = 51.8 fL 39-49.9 H 94594-0) RDW-CV (test code = 16.1 % 12-15.5 H 788-0) PLT (test code = See_Comment [Automated 777-3) message] The sy stem which generated this result transmitted reference range : 166 - 358 10*3/ ?L. The reference r josselyn was not used to interpret this result as normal/abnormal . MPV (test code = 9.5 fL 9.5-12.9 65721-8) NRBC/100 WBC (test See_Comment [Automat ed code = 8836519421) message] The system which generated this result transmitted reference range : 0.0 - 10.0 /100 WBCs. The refer ence range was not u sed to interpret th is result as normal/abnormal . NRBC x10^3 (test code See_Comment [Auto mated = 1490279923) message] The s ystem which generated this result transmitted reference range : 10*3/?L. The reference range was not used to interpret this result as normal/abnormal . GRAN MAT (NEUT) % 69.7 % (test code = 770-8) IMM GRAN % (test code 0.80 % = 8947427176) LYMPH % (test code = 19.6 % 736-9) MONO % (test code = 6.9 % 5905-5) EOS % (test code = 2.2 % 713-8) BASO % (test code = 0.8 % 706-2) GRAN MAT x10^3(ANC) 3.44 10*3/uL 1.88-7.09 (test code = 1530194974) IMM GRAN x10^3 (test 0.04 10*3/uL 0-0.06 code = 5031251007) LYMPH x10^3 (test code 0.97 10*3/uL 1.32-3.29 L = 731-0) MONO x10^3 (test code 0.34 10*3/uL 0.33-0.92 = 742-7) EOS x10^3 (test code = 0.11 10*3/uL 0.03-0.39 711-2) BASO x10^3 (test code 0.04 10*3/uL 0.01-0.07 = 704-7) Lab Interpretation Abnormal (test code = 49107-4) [facility] GLUCOSE (AUTOMATED)2022-02-14 08:19:03 Test Item Value Reference Range Interpretation Comments POCT GLU (test code = 4381238166) 180 mg/dL 70-110 H Lab Interpretation (test code = Abnormal 22921-4) [facility] GLUCOSE (AUTOMATED)2022-02-14 04:28:25 Test Item Value Reference Range Interpretation Comments POCT GLU (test code = 0603504666) 199 mg/dL 70-110 H Lab Interpretation (test code = Abnormal 43091-8) [facility] GLUCOSE (AUTOMATED)2022-02-14 00:57:11 Test Item Value Reference Range Interpretation Comments POCT GLU (test code = 4319536402) 203 mg/dL 70-110 H Lab Interpretation (test code = Abnormal 59537-4) [facility] GLUCOSE (AUTOMATED)2022-02-13 22:30:21 Test Item Value Reference Range Interpretation Comments POCT GLU (test code = 2175446810) 202 mg/dL 70-110 H Lab Interpretation (test code = Abnormal 79603-2) [facility] GLUCOSE (AUTOMATED)2022-02-13 17:30:07 Test Item Value Reference Range Interpretation Comments POCT GLU (test code = 6186271741) 180 mg/dL 70-110 H Lab Interpretation (test code = Abnormal 38218-8) [facility] GLUCOSE (AUTOMATED)2022-02-13 15:53:46 Test Item Value Reference Range Interpretation Comments POCT GLU (test code = 8340767579) 170 mg/dL 70-110 H Lab Interpretation (test code = Abnormal 72066-5) [facility] Arterial Blood Gas.2022-02-13 14:26:25 Test Item Value Reference Range Interpretation Comments PH (test code = 2) 7.35-7.45 PCO2 (test code = See_Comment [Automate d message] 5209800697) The system [employer] generated this result transmitted ref erence range: 35 - 45 mmHg. The reference r josselyn was not used to interpret this result as normal/abnor mal. PO2 (test code = See_Comment L [Automated message] 4652960058) The system [employer] generated this result transmitted ref erence range: 80 - 100 mmHg. The reference r josselyn was not used to interpret this result as normal/abnor mal. HCO3 (test code = See_Comment H [Automate d message] 8033841338) The system [employer] generated this result transmitted ref erence range: 22 - 26 mEq/L. The reference r josselyn was not used to interpret this result as normal/abnor mal. BE (test code = See_Comment [Automated message] 9931255452) The system [employer] generated this result transmitted ref erence range: -3.0 - 3 .0 mEq/L. The refe rence range was not u sed to interpret this result as normal/abnor mal. Lab Interpretation (test Abnormal code = 21080-8) [facility] GLUCOSE (AUTOMATED)2022-02-13 14:09:26 Test Item Value Reference Range Interpretation Comments POCT GLU (test code = 5564480407) 145 mg/dL 70-110 H Lab Interpretation (test code = Abnormal 27872-1) [facility] GLUCOSE (AUTOMATED)2022-02-13 12:46:36 Test Item Value Reference Range Interpretation Comments POCT GLU (test code = 5751550065) 133 mg/dL 70-110 H Lab Interpretation (test code = Abnormal 26217-7) [facility] GLUCOSE (AUTOMATED)2022-02-13 11:45:25 Test Item Value Reference Range Interpretation Comments POCT GLU (test code = 4522092895) 127 mg/dL 70-110 H Lab Interpretation (test code = Abnormal 52852-7) [facility] METABOLIC PANEL (NA, K, CL, CO2, GLUCOSE, BUN, CREATININE, CA)2022-02-13 11:17:34 Test Item Value Reference Range Interpretation Comments NA (test code = 140 mmol/L 135-145 0454068770) K (test code = 3.8 mmol/L 3.5-5 6584053001) CL (test code = 103 mmol/L 98-108 3043103227) CO2 TOTAL (test code = 35 mmol/L 23-31 H 5429526770) AGAP (test code = 2-16 0200830678) BUN (test code = 14 mg/dL 7-23 8667209369) GLUCOSE (test code = 107 mg/dL 70-110 2958044725) CREATININE (test code = 0.94 mg/dL 0.5-1.04 8424601343) CALCIUM (test code = 8.2 mg/dL 8.6-10.6 L 5665166908) eGFR (test code = mL/min/1.73m2 6403357809) JENNIFFER (test code = JENNIFFER) Association of [...] tests). Lab Interpretation Abnormal (test code = 78166-2) [facility] 11:17:34 Test Item Value Reference Range Interpretation Comments MAGNESIUM (test code = 0941204858) 2.1 mg/dL 1.7-2.4 Lab Interpretation (test code = Normal 79234-8) [facility] WITH [id number] 10:41:15 Test Item Value Reference Range Interpretation [...] (test code = 50.6 fL 39-49.9 H 46070-6) RDW-CV (test code = 15.6 % 12-15.5 H 788-0) PLT (test code = See_Comment [Automated 777-3) message] The sy stem which generated this result transmitted reference range : 166 - 358 10*3/ ?L. The reference r josselyn was not used to interpret this result as normal/abnormal . MPV (test code = 9.5 fL 9.5-12.9 94455-1) NRBC/100 WBC (test See_Comment [Automat ed code = 7992626843) message] The system which generated this result transmitted reference range : 0.0 - 10.0 /100 WBCs. The refer ence range was not u sed to interpret th is result as normal/abnormal . NRBC x10^3 (test code See_Comment [Auto mated = 4847588427) message] The s ystem which generated this result transmitted reference range : 10*3/?L. The reference range was not used to interpret this result as normal/abnormal . GRAN MAT (NEUT) % 74.0 % (test code = 770-8) IMM GRAN % (test code 0.50 % = 9549893575) LYMPH % (test code = 15.7 % 736-9) MONO % (test code = 7.4 % 5905-5) EOS % (test code = 1.7 % 713-8) BASO % (test code = 0.7 % 706-2) GRAN MAT x10^3(ANC) 4.37 10*3/uL 1.88-7.09 (test code = 9751155496) IMM GRAN x10^3 (test 0.03 10*3/uL 0-0.06 code = 7242461168) LYMPH x10^3 (test code 0.93 10*3/uL 1.32-3.29 L = 731-0) MONO x10^3 (test code 0.44 10*3/uL 0.33-0.92 = 742-7) EOS x10^3 (test code = 0.10 10*3/uL 0.03-0.39 711-2) BASO x10^3 (test code 0.04 10*3/uL 0.01-0.07 = 704-7) Lab Interpretation Abnormal (test code = 15499-8) [facility] GLUCOSE (AUTOMATED)2022-02-13 09:46:08 Test Item Value Reference Range Interpretation Comments POCT GLU (test code = 8889105687) 118 mg/dL 70-110 H Lab Interpretation (test code = Abnormal 96095-3) [facility] GLUCOSE (AUTOMATED)2022-02-13 08:49:55 Test Item Value Reference Range Interpretation Comments POCT GLU (test code = 3991134978) 122 mg/dL 70-110 H Lab Interpretation (test code = Abnormal 95183-1) [facility]-13 08:00:27 Test Item Value Reference Range Interpretation Comments POCT GLU (test code = 0876266194) 140 mg/dL 70-110 H Lab Interpretation (test code = Abnormal 84897-8) [facility] GLUCOSE (AUTOMATED)2022-02-13 07:07:01 Test Item Value Reference Range Interpretation Comments POCT GLU (test code = 6754870911) 155 mg/dL 70-110 H Lab Interpretation (test code = Abnormal 48761-4) [facility] GLUCOSE (AUTOMATED)2022-02-13 05:57:42 Test Item Value Reference Range Interpretation Comments POCT GLU (test code = 2633081483) 186 mg/dL 70-110 H Lab Interpretation (test code = Abnormal 35737-3) [facility] GLUCOSE (AUTOMATED)2022-02-13 03:40:10 Test Item Value Reference Range Interpretation Comments POCT GLU (test code = 2665098266) 245 mg/dL 70-110 H Lab Interpretation (test code = Abnormal 05826-0) [facility] GLUCOSE (AUTOMATED)2022-02-13 03:35:28 Test Item Value Reference Range Interpretation Comments POCT GLU (test code = 4830009447) 239 mg/dL 70-110 H Lab Interpretation (test code = Abnormal 00856-2) [facility] GLUCOSE (AUTOMATED)2022-02-13 01:48:01 Test Item Value Reference Range Interpretation Comments POCT GLU (test code = 8341462169) 184 mg/dL 70-110 H Lab Interpretation (test code = Abnormal 99381-8) [facility] GLUCOSE (AUTOMATED)2022-02-13 00:35:17 Test Item Value Reference Range Interpretation Comments POCT GLU (test code = 8406237250) 166 mg/dL 70-110 H Lab Interpretation (test code = Abnormal 02709-8) [facility] GLUCOSE (AUTOMATED)2022-02-12 23:26:35 Test Item Value Reference Range Interpretation Comments POCT GLU (test code = 5133358246) 149 mg/dL 70-110 H Lab Interpretation (test code = Abnormal 89569-8) [facility] GLUCOSE (AUTOMATED)2022-02-12 22:21:08 Test Item Value Reference Range Interpretation Comments POCT GLU (test code = 1799534239) 133 mg/dL 70-110 H Lab Interpretation (test code = Abnormal 12010-6) [facility] GLUCOSE (AUTOMATED)2022-02-12 21:06:47 Test Item Value Reference Range Interpretation Comments POCT GLU (test code = 3360313693) 130 mg/dL 70-110 H Lab Interpretation (test code = Abnormal 04613-2) [facility] GLUCOSE (AUTOMATED)2022-02-12 20:04:32 Test Item Value Reference Range Interpretation Comments POCT GLU (test code = 6083002920) 122 mg/dL 70-110 H Lab Interpretation (test code = Abnormal 55029-7) [facility] GLUCOSE (AUTOMATED)2022-02-12 19:08:55 Test Item Value Reference Range Interpretation Comments POCT GLU (test code = 2331616494) 133 mg/dL 70-110 H Lab Interpretation (test code = Abnormal 09332-8) [facility] GLUCOSE (AUTOMATED)2022-02-12 18:20:07 Test Item Value Reference Range Interpretation Comments POCT GLU (test code = 9542328009) 136 mg/dL 70-110 H Lab Interpretation (test code = Abnormal 84605-8) [facility] GLUCOSE (AUTOMATED)2022-02-12 17:19:20 Test Item Value Reference Range Interpretation Comments POCT GLU (test code = 4834469907) 155 mg/dL 70-110 H Lab Interpretation (test code = Abnormal 46803-5) [facility] GLUCOSE (AUTOMATED)2022-02-12 16:21:39 Test Item Value Reference Range Interpretation Comments POCT GLU (test code = 2965445982) 143 mg/dL 70-110 H Lab Interpretation (test code = Abnormal 53778-2) [facility]ahy[facility]xy[facility]9739-31-51 16:14:56 Test Item Value Reference Range Interpretation Comments BOH (test code = 0.2 mmol/L 4477359824) JENNIFFER (test code = Normal Ranges: ? ? JENNIFFER) Nonfasting ? Less than 0.1 mmol/L ? ? Overnight Fast ? ? ? Less than 0.4 mmol/L ? ? Fasting (1-2 weeks) ?6-8 mmol/L Test developed and characteristics determined by [facility] Laboratory Services. [facility] GLUCOSE (AUTOMATED)2022-02-12 15:53:18 Test Item Value Reference Range Interpretation Comments POCT GLU (test code = 0658965456) 70-110 HH Lab Interpretation (test code = Abnormal 59112-0) [facility] GLUCOSE (AUTOMATED)2022-02-12 14:17:34 Test Item Value Reference Range Interpretation Comments POCT GLU (test code = 5565465443) 232 mg/dL 70-110 H Lab Interpretation (test code = Abnormal 97325-2) [facility] GLUCOSE (AUTOMATED)2022-02-12 13:17:46 Test Item Value Reference Range Interpretation Comments POCT GLU (test code = 7200151279) 295 mg/dL 70-110 H Lab Interpretation (test code = Abnormal 45342-3) [facility] METABOLIC PANEL (NA, K, CL, CO2, GLUCOSE, BUN, CREATININE, CA)2022-02-12 12:56:38 Test Item Value Reference Range Interpretation Comments NA (test code = 138 mmol/L 135-145 0783286934) K (test code = 4.0 mmol/L 3.5-5 0876944612) CL (test code = 98 mmol/L 98-108 9606518738) CO2 TOTAL (test code = 31 mmol/L 23-31 7466176815) AGAP (test code = 2-16 1412905381) BUN (test code = 20 mg/dL 7-23 3777698118) GLUCOSE (test code = 279 mg/dL 70-110 H 6505418921) CREATININE (test code = 1.08 mg/dL 0.5-1.04 H 9255342996) CALCIUM (test code = 8.8 mg/dL 8.6-10.6 9730759900) eGFR (test code = mL/min/1.73m2 2637293820) JENNIFFER (test code = JENNIFFER) Association of [...] tests). Lab Interpretation Abnormal (test code = 49567-0) [facility] GLUCOSE (AUTOMATED)2022-02-12 12:44:19 Test Item Value Reference Range Interpretation Comments POCT GLU (test code = 3248513629) 299 mg/dL 70-110 H Lab Interpretation (test code = Abnormal 19785-9) [facility] GLUCOSE (AUTOMATED)2022-02-12 12:19:29 Test Item Value Reference Range Interpretation Comments POCT GLU (test code = 7229640695) 283 mg/dL 70-110 H Lab Interpretation (test code = Abnormal 07595-7) [facility] GLUCOSE (AUTOMATED)2022-02-12 11:22:10 Test Item Value Reference Range Interpretation Comments POCT GLU (test code = 4543665527) 378 mg/dL 70-110 H Lab Interpretation (test code = Abnormal 02391-7) [facility] GLUCOSE (AUTOMATED)2022-02-12 10:18:29 Test Item Value Reference Range Interpretation Comments POCT GLU (test code = 8919770100) 376 mg/dL 70-110 H Lab Interpretation (test code = Abnormal 46207-3) [facility] HospitalOsmolality Rxtva4135-62-42 09:27:10 Test Item Value Reference Range Interpretation Comments OSMOLALITY (test code = See_Comment [Au tomated message] 2692-2) The system [employer] generated this result transmitted ref erence range: 278 - 30 5 mOsm/kg. The reference range was not used to int erpret this result as normal/abnormal . Lab Interpretation (test Abnormal code = 17878-7) [facility] METABOLIC PANEL (NA, K, CL, CO2, GLUCOSE, BUN, CREATININE, CA)2022-02-12 09:22:44 Test Item Value Reference Range Interpretation Comments NA (test code = 135 mmol/L 135-145 1177668168) K (test code = 4.7 mmol/L 3.5-5 2799626004) CL (test code = 93 mmol/L 98-108 L 8120677155) CO2 TOTAL (test code = 33 mmol/L 23-31 H 2472572708) AGAP (test code = 2-16 3557746908) BUN (test code = 22 mg/dL 7-23 6710390902) GLUCOSE (test code = 474 mg/dL 70-110 HH 0713438996) CREATININE (test code = 1.17 mg/dL 0.5-1.04 H 6258274961) CALCIUM (test code = 8.9 mg/dL 8.6-10.6 1521415655) eGFR (test code = mL/min/1.73m2 1762630024) JENNIFFER (test code = JENNIFFER) Association of [...] tests). Lab Interpretation Abnormal (test code = 35789-2) [facility]2022-02-12 09:19:06 Test Item Value Reference Range Interpretation Comments POCT GLU (test code = 3405813568) 478 mg/dL 70-110 HH Lab Interpretation (test code = Abnormal 81872-7) [facility]2022-[facility] 09:16:19 Test Item Value Reference Range Interpretation Comments PHOSPHORUS (test code = 3863344345) 5.9 mg/dL 2.5-5 H Lab Interpretation (test code = Abnormal 37150-6) [facility] 09:16:19 Test Item Value Reference Range Interpretation Comments MAGNESIUM (test code = 2960804799) 2.1 mg/dL 1.7-2.4 Lab Interpretation (test code = Normal 88518-2) [facility] HospitalGlycosylated Hemoglobin (A1C)2022-02-12 09:10:46 Test Item Value Reference Range Interpretation Comments HGB A1C (test code = 9.7 % 4-5.7 H 4548-4) JENNIFFER (test code = JENNIFFER) Reference RangesNormal: <5.7%Prediabetes: 5.7 - 6.4%Diabetes: > 6.5% Lab Interpretation (test Abnormal code = 81560-6) [facility] WITH [id number] 08:28:29 Test Item Value Reference Range Interpretation [...] RDW-SD (test code = 49.8 fL 39-49.9 57641-1) RDW-CV (test code = 15.7 % 12-15.5 H 788-0) PLT (test code = See_Comment [Automated 777-3) message] The system which generated this result transmit alden reference range : 166 - 358 10*3/ ?L. The reference range was not u sed to interpret th is result as normal/abnormal . MPV (test code = 9.7 fL 9.5-12.9 61026-6) NRBC/100 WBC (test See_Comment [Automat ed code = 1147776897) message] The system which generated this result transmit alden reference range : 0.0 - 10.0 /100 WBCs. The reference range was not used to interpret this result as normal/abnormal . NRBC x10^3 (test code See_Comment [Auto mated = 9899777692) message] The system which generated this result transmit alden reference range : 10*3/?L. The reference range was not used to interpret this result as normal/abnormal . GRAN MAT (NEUT) % 89.9 % (test code = 770-8) IMM GRAN % (test code 0.90 % = 2543938893) LYMPH % (test code = 3.4 % 736-9) MONO % (test code = 5.3 % 5905-5) EOS % (test code = 0.1 % 713-8) BASO % (test code = 0.4 % 706-2) GRAN MAT x10^3(ANC) 11.94 10*3/uL 1.88-7.09 H (test code = 3165929613) IMM GRAN x10^3 (test 0.12 10*3/uL 0-0.06 H code = 8967804535) LYMPH x10^3 (test code 0.45 10*3/uL 1.32-3.29 L = 731-0) MONO x10^3 (test code 0.70 10*3/uL 0.33-0.92 = 742-7) EOS x10^3 (test code = 0.03-0.39 L 711-2) BASO x10^3 (test code 0.05 10*3/uL 0.01-0.07 = 704-7) Lab Interpretation Abnormal (test code = 83347-2) [facility] GLUCOSE (AUTOMATED)2022-02-12 04:57:17 Test Item Value Reference Range Interpretation Comments POCT GLU (test code = 6685115887) 592 mg/dL 70-110 HH Lab Interpretation (test code = Abnormal 76878-3) [facility] GLUCOSE (AUTOMATED)2022-02-12 04:57:17 Test Item Value Reference Range Interpretation Comments POCT GLU (test code = [id number]) 559 mg/dL 70-110 HH Lab Interpretation (test code = Abnormal 64876-1) [facility]THY[facility]ID STIMULATING [id number] 02:15:56 Test Item Value Reference Range Interpretation Comments TSH (test code = See_Comment [Automated message] 7059154197) The system [employer] generated this result transmitted ref erence range: 0.45 - 4 .70 mIU/L. The refe rence range was not u sed to interpret this result as normal/abnor mal. Lab Interpretation (test Normal code = 39136-4) [facility] HospitalFR [id number] 02:02:37 Test Item Value Reference Range Interpretation Comments FREE T4 (test code = See_Comment [Autom ated message] [id number]) The system [employer] generated this result transmitted ref erence range: 0.78 - 2 .20 ng/dL:. The ref erence range was not u sed to interpret this result as normal/abnor mal. Lab Interpretation (test Normal code = 64751-9) [facility] HospitalBELINDANIN [id number] 01:57:33 Test Item Value Reference Interpretation Comments Range TROPONIN I (test 0.001 ng/mL See_Comment [Automated code = 4190817922) message] The system which generated this result [...] biotin. Lab Interpretation Normal (test code = 43111-1) [facility]. METABOLIC PANEL ([id number])2022-02-12 01:55:07 Test Item Value Reference Range Interpretation Comments NA (test code = 134 mmol/L 135-145 L 9998222365) K (test code = 4.4 mmol/L 3.5-5 5787277263) CL (test code = 95 mmol/L 98-108 L 8074264454) CO2 TOTAL (test code = 22 mmol/L 23-31 L 6481479749) AGAP (test code = 2-16 H 0141468491) BUN (test code = 22 mg/dL 7-23 5034724152) GLUCOSE (test code = 646 mg/dL 70-110 HH 5643701249) CREATININE (test code = 1.19 mg/dL 0.5-1.04 H 4616242875) TOTAL BILI (test code = 1.1 mg/dL 0.1-1.5 4753318857) CALCIUM (test code = 9.1 mg/dL 8.6-10.6 7658207508) T PROTEIN (test code = 7.0 g/dL 6.3-8.2 1419218561) ALBUMIN (test code = 4.1 g/dL 3.5-5 2094416246) ALK PHOS (test code = 245 U/L 34-122 H 5929266445) ALTv (test code = 78 U/L 5-35 H 1742-6) AST(SGOT) (test code = 76 U/L 13-40 H 6849427836) eGFR (test code = mL/min/1.73m2 2982667863) JENNIFFER (test code = JENNIFFER) Association of [...] tests). Lab Interpretation Abnormal (test code = 68953-2) [facility] HospitalN-TERMINAL [id number] 01:54:57 Test Item Value Reference Range Interpretation Comments NT-proBNP (test code 491 pg/mL See_Comment H [Autom ated = 7965620774) message] The system which generated this result transmitted reference range : <=125. The reference range was not used to interpret this result as normal/abnormal . JENNIFFER (test code = JENNIFFER) Biotin has been reported to cause a negative bias, interpret results relative to patient's use of biotin. Lab Interpretation Abnormal (test code = 73237-5) [facility] HospitalETHANOL2022-07-21 01:47:18 ALCOHOL<10mg/dL02/11/2022 8:47 PM [facility]<10 Pmzelpnk65-959 Toxic>100 Depression of REPAIRER AND CHECKER>400 Fatalities ReportedUnHCA [facility] Healthcare NorthwestAMMONIA, [id number] 01:46:13 Test Item Value Reference Range Interpretation Comments AMMONIA (test code = 4146025450) 28 umol/L 9-33 Lab Interpretation (test code = Normal 18720-0) [facility] HospitalACTIVATED PARTIAL THRMPLAS [id number] 01:39:11 Test Item Value Reference Range Interpretation Comments APTT Patient (test See_Comment [Automat ed code = 3173-2) message] The system which generated this result transmitted reference range : 23 - 38 Seconds . The reference range was not used to interpr et this result as normal/abnormal . JENNIFFER (test code = JENNIFFER) The [facility] patient population mean normal value for aPTT is 30 seconds. Lab Interpretation Normal (test code = 61496-7) [facility] HospitalCBC WITH [id number] 01:37:15 Test Item Value Reference Range Interpretation Comments WBC (test code = See_Comment H [Automated 8790-2) message] The sy stem which generated this result transmitted reference range : 4.30 - 11.10 10*3/?L. The reference range was not used to interpret this result as normal/abnormal . RBC (test code = See_Comment L [Automated 589-8) message] The sy stem which generated this [...] (test code = 50.9 fL 39-49.9 H 57501-4) RDW-CV (test code = 15.8 % 12-15.5 H 788-0) PLT (test code = See_Comment [Automated 777-3) message] The sy stem which generated this result transmitted reference range : 166 - 358 10*3/ ?L. The reference r josselyn was not used to interpret this result as normal/abnormal . MPV (test code = 9.9 fL 9.5-12.9 36117-4) NRBC/100 WBC (test See_Comment [Automat ed code = 8709012145) message] The system which generated this result transmitted reference range : 0.0 - 10.0 /100 WBCs. The refer ence range was not u sed to interpret th is result as normal/abnormal . NRBC x10^3 (test code See_Comment [Auto mated = 0810220679) message] The s ystem which generated this result transmitted reference range : 10*3/?L. The reference range was not used to interpret this result as normal/abnormal . GRAN MAT (NEUT) % 78.5 % (test code = 770-8) IMM GRAN % (test code 1.20 % = 5798907692) LYMPH % (test code = 12.2 % 736-9) MONO % (test code = 6.4 % 5905-5) EOS % (test code = 1.0 % 713-8) BASO % (test code = 0.7 % 706-2) GRAN MAT x10^3(ANC) 8.80 10*3/uL 1.88-7.09 H (test code = 8776983241) IMM GRAN x10^3 (test 0.14 10*3/uL 0-0.06 H code = 7176038369) LYMPH x10^3 (test code 1.37 10*3/uL 1.32-3.29 = 731-0) MONO x10^3 (test code 0.72 10*3/uL 0.33-0.92 = 742-7) EOS x10^3 (test code = 0.11 10*3/uL 0.03-0.39 711-2) BASO x10^3 (test code 0.08 10*3/uL 0.01-0.07 H = 704-7) Lab Interpretation Abnormal (test code = 85698-7) [facility] HospitalPROTHROMBIN TIME / [id number] 01:36:50 Test Item Value Reference Range Interpretation Comments PROTIME PATIENT (test See_Comment [Auto mated message] code = 5964-2) The system [employer] generated this result transmitted ref erence range: 12.0 - 1 4.7 Seconds. The re ference range was not u sed to interpret this result as normal/abnor mal. INR (test code = 6301-6) Nor mal INR <1.1; Warfarin Therap eutic range 2.0 to 3. 0 or 2.5 to 3.5, dep ending upon the indica tions. Lab Interpretation (test Normal code = 58541-0) [facility] HospitalPOCT GLUCOSE (AUTOMATED)2022-01-31 18:41:03 Test Item Value Reference Range Interpretation Comments POCT GLU (test code = 7899606494) 241 mg/dL 70-110 H Lab Interpretation (test code = Abnormal 51517-4) [facility] HospitalSPUTUM [id number] 14:36:01 Test Item Value Reference Range Interpretation Comments SPUTUM CULTURE 1+ Respiratory iveth: (test code = 622-1) Commensal upper respiratory microorganisms only. Gram stain (test Few Epithelial cells code = 664-3) JENNIFFER (test code = Bacterial pathogens JENNIFFER) associated with lower respiratory infections were not identified, which include Pseudomonas aeruginosa and Staphylococcus aureus (MRSA or MSSA). [facility] HospitalN-TERMINAL [id number] 14:27:39 Test Item Value Reference Range Interpretation Comments NT-proBNP (test code 2930 pg/mL See_Comment H [Autom ated = 1805945351) message] The system which generated this result transmitted reference range : <=125. The reference range was not used to interpret this result as normal/abnormal . JENNIFFER (test code = JENNIFFER) Biotin has been reported to cause a negative bias, interpret results relative to patient's use of biotin. Lab Interpretation Abnormal (test code = 90012-8) [facility] HospitalPOMO GLUCOSE (AUTOMATED)2022-01-31 13:06:37 Test Item Value Reference Range Interpretation Comments POCT GLU (test code = 6669984056) 144 mg/dL 70-110 H Lab Interpretation (test code = Abnormal 66068-8) [facility] METABOLIC PANEL (NA, K, CL, CO2, GLUCOSE, BUN, CREATININE, CA)2022-01-31 11:52:51 Test Item Value Reference Range Interpretation Comments NA (test code = 139 mmol/L 135-145 7816416057) K (test code = 4.2 mmol/L 3.5-5.0 1780226520) CL (test code = 92 mmol/L 98-108 L 9662628340) CO2 TOTAL (test code = 39 mmol/L 23-31 H 3484696114) AGAP (test code = 2-16 4394348327) BUN (test code = 32 mg/dL 7-23 H 3138143467) GLUCOSE (test code = 183 mg/dL 70-110 H 9904580595) CREATININE (test code = 0.89 mg/dL 0.50-1.04 3587168047) CALCIUM (test code = 8.7 mg/dL 8.6-10.6 6123626630) eGFR (test code = mL/min/1.73m2 2591149208) JENNIFFER (test code = JENNIFFER) Association of [...] tests). Lab Interpretation Abnormal (test code = 60122-6) [facility] HospitalMAGNESIUM2022-07-09 11:45:09 Test Item Value Reference Range Interpretation Comments MAGNESIUM (test code = 2562817959) 2.4 mg/dL 1.7-2.4 Lab Interpretation (test code = Normal 45579-2) [facility] HospitalPHOSPHORUS2022-07-09 11:44:49 Test Item Value Reference Range Interpretation Comments PHOSPHORUS (test code = 2346651676) 3.3 mg/dL 2.5-5.0 Lab Interpretation (test code = Normal 60208-8) [facility] GLUCOSE (AUTOMATED)2022-01-30 21:23:07 Test Item Value Reference Range Interpretation Comments POCT GLU (test code = 5532658430) 357 mg/dL 70-110 H Lab Interpretation (test code = Abnormal 45210-7) [facility] GLUCOSE (AUTOMATED)2022-01-30 17:39:07 Test Item Value Reference Range Interpretation Comments POCT GLU (test code = 5634771583) 183 mg/dL 70-110 H Lab Interpretation (test code = Abnormal 31647-6) [facility] GLUCOSE (AUTOMATED)2022-01-30 17:39:07 Test Item Value Reference Range Interpretation Comments POCT GLU (test code = 1074016685) 275 mg/dL 70-110 H Lab Interpretation (test code = Abnormal 62691-5) [facility] GLUCOSE (AUTOMATED)2022-01-30 13:42:50 Test Item Value Reference Range Interpretation Comments POCT GLU (test code = 1871434121) 187 mg/dL 70-110 H Lab Interpretation (test code = Abnormal 62758-3) [facility] HospitalN-TERMINAL [id number] 10:44:07 Test Item Value Reference Range Interpretation Comments NT-proBNP (test code 3180 pg/mL See_Comment H [Autom ated = 7104631157) message] The system which generated this result transmitted reference range : <=125. The reference range was not used to interpret this result as normal/abnormal . JENNIFFER (test code = JENNIFFER) Biotin has been reported to cause a negative bias, interpret results relative to patient's use of biotin. Lab Interpretation Abnormal (test code = 08082-6) [facility] HospitalCOMP. METABOLIC PANEL (74227)2022-01-30 10:36:27 Test Item Value Reference Range Interpretation Comments NA (test code = 139 mmol/L 135-145 4241983713) K (test code = 3.7 mmol/L 3.5-5.0 4170751404) CL (test code = 92 mmol/L 98-108 L 4430342775) CO2 TOTAL (test code = 37 mmol/L 23-31 H 7043120010) AGAP (test code = 2-16 8460057785) BUN (test code = 22 mg/dL 7-23 3103538748) GLUCOSE (test code = 192 mg/dL 70-110 H 1462816831) CREATININE (test code = 1.04 mg/dL 0.50-1.04 7234411204) TOTAL BILI (test code = 0.7 mg/dL 0.1-1.3 6320307884) CALCIUM (test code = 8.3 mg/dL 8.6-10.6 L 0666321837) T PROTEIN (test code = 6.8 g/dL 6.3-8.2 2698526986) ALBUMIN (test code = 3.7 g/dL 3.5-5.0 7874356324) ALK PHOS (test code = 124 U/L 34-122 H 3433739740) ALTv (test code = 28 U/L 5-35 1742-6) AST(SGOT) (test code = 24 U/L 13-40 4999156173) eGFR (test code = mL/min/1.73m2 1768331517) JENNIFFER (test code = JENNIFFER) Association of [...] tests). Lab Interpretation Abnormal (test code = 66292-9) [facility] WITH [id number] 09:41:38 Test Item Value Reference Range Interpretation Comments WBC (test code = See_Comment [Automated 7542-2) message] The sy stem which generated this result transmitted reference range : 4.30 - 11.10 10*3/?L. The reference range was not used to interpret this result as normal/abnormal . RBC (test code = See_Comment L [Automated 567-6) message] The sy stem which generated this [...] RDW-SD (test code = 47.8 fL 39.0-49.9 46871-4) RDW-CV (test code = 15.0 % 12.0-15.5 788-0) PLT (test code = See_Comment [Automated 777-3) message] The sy stem which generated this result transmitted reference range : 166 - 358 10*3/ ?L. The reference r josselyn was not used to interpret this result as normal/abnormal . MPV (test code = 9.1 fL 9.5-12.9 L 32808-2) NRBC/100 WBC (test See_Comment [Automat ed code = 4653999261) message] The system which generated this result transmitted reference range : 0.0 - 10.0 /100 WBCs. The refer ence range was not u sed to interpret th is result as normal/abnormal . NRBC x10^3 (test code <0.01 See_Comment [Auto mated = 8576597670) message] The s ystem which generated this result transmitted reference range : 10*3/?L. The reference range was not used to interpret this result as normal/abnormal . GRAN MAT (NEUT) % 85.7 % (test code = 770-8) IMM GRAN % (test code 0.60 % = 8914207387) LYMPH % (test code = 7.1 % 736-9) MONO % (test code = 6.1 % 5905-5) EOS % (test code = 0.1 % 713-8) BASO % (test code = 0.4 % 706-2) GRAN MAT x10^3(ANC) 7.16 10*3/uL 1.88-7.09 H (test code = 8866148269) IMM GRAN x10^3 (test 0.05 10*3/uL 0.00-0.06 code = 8413318670) LYMPH x10^3 (test code 0.59 10*3/uL 1.32-3.29 L = 731-0) MONO x10^3 (test code 0.51 10*3/uL 0.33-0.92 = 742-7) EOS x10^3 (test code = <0.03 0.03-0.39 L 711-2) BASO x10^3 (test code 0.03 10*3/uL 0.01-0.07 = 704-7) Lab Interpretation Abnormal (test code = 22712-9) [facility] GLUCOSE (AUTOMATED)2022-01-30 03:06:20 Test Item Value Reference Range Interpretation Comments POCT GLU (test code = 2774711466) 336 mg/dL 70-110 H Lab Interpretation (test code = Abnormal 34369-7) [facility] HospitalPHOSPHORUS2022-07-07 21:35:38 Test Item Value Reference Range Interpretation Comments PHOSPHORUS (test code = 1408392317) 4.3 mg/dL 2.5-5.0 Lab Interpretation (test code = Normal 61935-8) [facility] GLUCOSE (AUTOMATED)2022-01-29 21:21:35 Test Item Value Reference Range Interpretation Comments POCT GLU (test code = 5583618978) 354 mg/dL 70-110 H Lab Interpretation (test code = Abnormal 32173-2) [facility] GLUCOSE (AUTOMATED)2022-01-29 16:10:10 Test Item Value Reference Range Interpretation Comments POCT GLU (test code = 4618006646) 240 mg/dL 70-110 H Lab Interpretation (test code = Abnormal 15704-8) [facility] GLUCOSE (AUTOMATED)2022-01-29 15:16:07 Test Item Value Reference Range Interpretation Comments POCT GLU (test code = 2508741625) 219 mg/dL 70-110 H Lab Interpretation (test code = Abnormal 49992-4) [facility] GLUCOSE (AUTOMATED)2022-01-29 13:06:22 Test Item Value Reference Range Interpretation Comments POCT GLU (test code = 4486907961) 176 mg/dL 70-110 H Lab Interpretation (test code = Abnormal 32349-8) [facility]. METABOLIC PANEL (76573)2022-01-29 10:31:34 Test Item Value Reference Range Interpretation Comments NA (test code = 141 mmol/L 135-145 7546592124) K (test code = 4.2 mmol/L 3.5-5.0 8459516846) CL (test code = 96 mmol/L 98-108 L 3777656317) CO2 TOTAL (test code = 37 mmol/L 23-31 H 9863501907) AGAP (test code = 2-16 5041557575) BUN (test code = 20 mg/dL 7-23 0309569768) GLUCOSE (test code = 179 mg/dL 70-110 H 7422627313) CREATININE (test code = 0.90 mg/dL 0.50-1.04 6996993378) TOTAL BILI (test code = 0.7 mg/dL 0.1-1.6 0419906512) CALCIUM (test code = 8.3 mg/dL 8.6-10.6 L 5821876778) T PROTEIN (test code = 7.3 g/dL 6.3-8.2 9140404555) ALBUMIN (test code = 3.9 g/dL 3.5-5.0 2702533933) ALK PHOS (test code = 151 U/L 34-122 H 4180722485) ALTv (test code = 44 U/L 5-35 H 1742-6) AST(SGOT) (test code = 54 U/L 13-40 H 3584317203) eGFR (test code = mL/min/1.73m2 3178164057) JENNIFFER (test code = JENNIFFER) Association of [...] tests). Lab Interpretation Abnormal (test code = 62722-6) [facility]N-[facility]MINAL [id number] 10:06:38 Test Item Value Reference Range Interpretation Comments NT-proBNP (test code 3080 pg/mL See_Comment H [Autom ated = 8943819519) message] The system which generated this result transmitted reference range : <=125. The reference range was not used to interpret this result as normal/abnormal . JENNIFFER (test code = JENNIFFER) Biotin has been reported to cause a negative bias, interpret results relative to patient's use of biotin. Lab Interpretation Abnormal (test code = 78831-1) [facility]MAG[facility]UM2022-[facility]-07 09:58:35 Test Item Value Reference Range Interpretation Comments MAGNESIUM (test code = 2144806522) 1.8 mg/dL 1.7-2.4 Lab Interpretation (test code = Normal 21268-4) [facility] HospitalCB WITH [id number] 09:47:53 Test Item Value Reference Range Interpretation Comments WBC (test code = See_Comment H [Automated 8990-2) message] The system which generated this result transmit alden reference range : 4.30 - 11.10 10*3/?L. The reference range was not used to interpret this result as normal/abnormal . RBC (test code = See_Comment L [Automated 009-8) message] The system which generated this result [...] (test code = 50.9 fL 39.0-49.9 H 81997-9) RDW-CV (test code = 15.5 % 12.0-15.5 788-0) PLT (test code = See_Comment [Automated 777-3) message] The system which generated this result transmit alden reference range : 166 - 358 10*3/ ?L. The reference range was not u sed to interpret th is result as normal/abnormal . MPV (test code = 9.9 fL 9.5-12.9 96394-4) NRBC/100 WBC (test See_Comment [Automat ed code = 6341525642) message] The system which generated this result transmit alden reference range : 0.0 - 10.0 /100 WBCs. The reference range was not used to interpret this result as normal/abnormal . NRBC x10^3 (test code <0.01 See_Comment [Auto mated = 1032141300) message] The system which generated this result transmit alden reference range : 10*3/?L. The reference range was not used to interpret this result as normal/abnormal . GRAN MAT (NEUT) % 87.2 % (test code = 770-8) IMM GRAN % (test code 0.50 % = 1748778120) LYMPH % (test code = 5.6 % 736-9) MONO % (test code = 5.9 % 5905-5) EOS % (test code = 0.4 % 713-8) BASO % (test code = 0.4 % 706-2) GRAN MAT x10^3(ANC) 10.37 10*3/uL 1.88-7.09 H (test code = 9770631278) IMM GRAN x10^3 (test 0.06 10*3/uL 0.00-0.06 code = 0193067598) LYMPH x10^3 (test code 0.66 10*3/uL 1.32-3.29 L = 731-0) MONO x10^3 (test code 0.70 10*3/uL 0.33-0.92 = 742-7) EOS x10^3 (test code = 0.05 10*3/uL 0.03-0.39 711-2) BASO x10^3 (test code 0.05 10*3/uL 0.01-0.07 = 704-7) Lab Interpretation Abnormal (test code = 00848-4) [facility] GLUCOSE (AUTOMATED)2022-01-29 05:48:29 Test Item Value Reference Range Interpretation Comments POCT GLU (test code = 3853887854) 297 mg/dL 70-110 H Lab Interpretation (test code = Abnormal 22825-7) [facility] GLUCOSE (AUTOMATED)2022-01-29 05:48:29 Test Item Value Reference Range Interpretation Comments POCT GLU (test code = 5943582625) 282 mg/dL 70-110 H Lab Interpretation (test code = Abnormal 47754-4) [facility] GLUCOSE (AUTOMATED)2022-01-28 23:35:33 Test Item Value Reference Range Interpretation Comments POCT GLU (test code = 1720062631) 302 mg/dL 70-110 H Lab Interpretation (test code = Abnormal 35317-9) [facility] HospitalVITAMIN B12, [id number] 23:17:54 Test Item Value Reference Range Interpretation Comments VIT B12 (test code = 265 pg/mL 240-930 9193640840) JENNIFFER (test code = JENNIFFER) Biotin has been reported to cause a positive bias, interpret results relative to patient's use of biotin. Lab Interpretation (test Normal code = 62667-0) [facility] HospitalPROCALCITONIN2022-07-06 20:35:43 Test Item Value Reference Range Interpretation Comments Procalcitonin (test 0.13 ng/mL <0.07 H code = 8646685047) JENNIFFER (test code = JENNIFFER) INTERPRETATION OF [...] lung abscess/empyema. For further information please refer to:[email or web address] Lab Interpretation Abnormal (test code = 86892-1) [facility] HospitalVITAMIN D, [id number] 20:34:43 Test Item Value Reference Range Interpretation Comments VIT D 25OH (test code = 23 ng/mL 25-80 L 18304-9) JENNIFFER (test code = JENNIFFER) Deficiency: <20 ng/mLInsufficiency: 20-24 ng/mLOptimal: 25-80 ng/mL Lab Interpretation (test Abnormal code = 00488-3) [facility] HospitalTROPONIN [id number] 18:15:31 Test Item Value Reference Interpretation Comments Range TROPONIN I (test 0.003 ng/mL See_Comment [Automated code = 7242833830) message] The system which generated this result [...] biotin. Lab Interpretation Normal (test code = 34073-7) [facility] HospitalURIC [id number] 18:04:12 Test Item Value Reference Range Interpretation Comments URIC ACID (test code = 4498395511) 9.3 mg/dL 2.9-6.0 H Lab Interpretation (test code = Abnormal 52326-5) [facility] HospitalTransthoracic echo (TTE)2022-01-28 17:57:52 Test Item Value Reference Range Interpretation Comments Height (test code = in 5614710621) Weight (test code = lbs 6547786333) Systolic BP (test code = mmHg 8065791069) Diastolic BP (test code = mmHg 6828135891) Heart Rate (test code = bpm 1466420801) Ao root annulus (test 3.1 cm code = 4067613764) Ao root diam (test code = 3.10 cm 1575657314) Aortic root (test code = 3.1 cm 9076678331) LA size (test code = 4.9 cm 9568835256) LVOT diameter (test code 2.10 cm = 0917293293) E wave decelartion time 0.25 s (test code = 3005961723) MV Peak E Marva (test code 83.7 cm/s = 6092811481) MV Peak A Marva (test code 66.0 cm/s = 6042970690) E/A ratio (test code = ratio 6966446305) MV E/e' septal (test code 8.2 cm/s = 2885045484) Tapse (test code = 1.68 cm 5758336030) Aortic valve mean 77.4 cm/s velocity (test code = 5208588767) Ao peak marva (test code = 124.6 cm/s 7833394816) Ao VTI (test code = 20.7 cm 8753120963) Ao max PG (test code = 6.20 mm[Hg] 0266538564) AV peak gradient (test mmHg code = 5659492100) AV mean gradient (test mmHg code = 3480044686) LVOT stroke volume (test 62.00 cm3 code = 0215167785) LVOT peak marva (test code 104.3 cm/s = 5525320072) LVOT mn grad (test code = mmHg 0050532953) AV LVOT peak gradient mmHg (test code = 0651974284) LVOT peak VTI (test code 17.9 cm = 2072769538) AV area by cont VTI (test 3.0 cm2 code = 1486272653) AV area peak marva (test 2.9 cm2 code = 1634834652) LV V1 mean (test code = 63.60 cm/s 8043378949) AV valve area (test code 3.00 cm2 = 2535779386) LVIDD (test code = 5.20 cm 1815852516) IVS (test code = 0.79 cm 5135718241) Interventricular Septum 0.79 cm Diastolic Thickness by 2D (test code = 3524356) LVPWD (test code = 0.66 cm 5565431669) PW (test code = 0.66 cm 0.6-1.0 0412006512) EF(Teich) (test code = 48.60 % 0449963928) LVIDS (test code = 3.90 cm 8646080043) FS (test code = 25 % 6607369160) EF - 2D (test code = 48.60 % 95346859) Radiology Study observation (narrative) (test code = 56198-5) JENNIFFER (test code = JENNIFFER) ?Left?Ventricle: Normal systolic function with a visually estimated EF of 60 - 65%. ?Tricuspid?Valve: Insufficient regurgant jet to estimate RVSP. ?RA pressure is 10-15 mmHg. VitalsHeight Weight BSA (Calculated - sq m) BP Pulse 5' 1" (1.549 m) 230 lb (104.3 kg) 2.12 sq meters 118/66 96 [facility] [id number] 14:19:29 Test Item Value Reference Interpretation Comments Range TROPONIN I (test 0.003 ng/mL See_Comment [Automated code = 1298114220) message] The system which generated this result [...] biotin. Lab Interpretation Normal (test code = 00797-0) [facility]AL [id number] 14:16:29 Test Item Value Reference Range Interpretation Comments NT-proBNP (test code 1170 pg/mL See_Comment H [Autom ated = 8265328850) message] The system which generated this result transmitted reference range : <=125. The reference range was not used to interpret this result as normal/abnormal . JENNIFFER (test code = JENNIFFER) Biotin has been reported to cause a negative bias, interpret results relative to patient's use of biotin. Lab Interpretation Abnormal (test code = 53885-4) [facility] HospitalIRON [id number] 14:14:29 Test Item Value Reference Range Interpretation Comments IRON (test code = 4102727374) 42 ug/dL 50-160 L TIBC (test code = 1337437113) 299 ug/dL 250-410 % FE SAT (test code = 0956312701) 14 % 20-50 L Lab Interpretation (test code = Abnormal 52080-1) [facility] GLUCOSE (AUTOMATED)2022-01-28 14:00:04 Test Item Value Reference Range Interpretation Comments POCT GLU (test code = 6557693199) 197 mg/dL 70-110 H Lab Interpretation (test code = Abnormal 02232-1) [facility] GLUCOSE (AUTOMATED)2022-01-28 13:01:52 Test Item Value Reference Range Interpretation Comments POCT GLU (test code = 1897613459) 211 mg/dL 70-110 H Lab Interpretation (test code = Abnormal 33901-2) [facility] [id number] 13:00:31 Test Item Value Reference Range Interpretation Comments FERRITIN (test code = 86.8 ng/mL 11.0-264.0 8760111278) JENNIFFER (test code = JENNIFFER) Biotin has been reported to cause a negative bias, interpret results relative to patient's use of biotin. Lab Interpretation (test Normal code = 96539-4) [facility]ULATING [id number] 12:56:35 Test Item Value Reference Range Interpretation Comments TSH (test code = See_Comment [Automated message] 2174813892) The system [employer] generated this result transmitted ref erence range: 0.45 - 4 .70 mIU/L. The refe rence range was not u sed to interpret this result as normal/abnor mal. Lab Interpretation (test Normal code = 72444-6) [facility] HospitalSEDIMENTATION [id number] 12:41:55 Test Item Value Reference Range Interpretation Comments ESR (test code = See_Comment H [Automated message] 5677690561) The system [employer] generated this result transmitted ref erence range: 0 - 20 m m/HR. The reference r josselyn was not used to interpret this result as normal/abnor mal. Lab Interpretation (test Abnormal code = 51158-8) [facility]TR[facility] [id number] 12:38:13 Test Item Value Reference Interpretation Comments Range TROPONIN I (test 0.003 ng/mL See_Comment [Automated code = 3962054887) message] The system which generated this result [...] biotin. Lab Interpretation Normal (test code = 28345-6) [facility]N-TERMINAL [id number] 12:34:52 Test Item Value Reference Range Interpretation Comments NT-proBNP (test code 1150 pg/mL See_Comment H [Autom ated = 9382082204) message] The system which generated this result transmitted reference range : <=125. The reference range was not used to interpret this result as normal/abnormal . JENNIFFER (test code = JENNIFFER) Biotin has been reported to cause a negative bias, interpret results relative to patient's use of biotin. Lab Interpretation Abnormal (test code = 73610-6) [facility] HospitalLIPID PANEL (46214)(TOTAL CHOLESTEROL, TRIGLYCERIDES, HDL)2022-01-28 12:26:13 Test Item Value Reference Range Interpretation Comments CHOL (test code = 122 mg/dL 120-200 5271602412) HDL (test code = 27 mg/dL >50 L 3183906063) HDLC RATIO (test code = See_Comment [Au tomated message] 0118515891) The system [employer] generated this result transmit alden reference range : <=4.5. The refe rence range was not u sed to interpret th is result as normal/abnormal . TRIG (test code = 249 mg/dL 30-170 H 1807116304) LDL CHOL (test code = 45 mg/dL See_Comment [Auto mated message] 42753-1) The system [employer] generated this result transmit alden reference range : <=160. The refe rence range was not u sed to interpret th is result as normal/abnormal . VLDL (test code = 50 mg/dL 5-60 5430994698) Lab Interpretation (test Abnormal code = 34900-9) [facility]2022-[facility]-06 12:26:13 Test Item Value Reference Range Interpretation Comments MAGNESIUM (test code = 7581424125) 1.9 mg/dL 1.7-2.4 Lab Interpretation (test code = Normal 90926-1) [facility] HospitalCOMP. METABOLIC PANEL (80543)2022-01-28 12:25:53 Test Item Value Reference Range Interpretation Comments NA (test code = 141 mmol/L 135-145 0737161309) K (test code = 4.9 mmol/L 3.5-5.0 2669149652) CL (test code = 101 mmol/L 98-108 7687219048) CO2 TOTAL (test code = 32 mmol/L 23-31 H 9886002967) AGAP (test code = 2-16 7817824740) BUN (test code = 20 mg/dL 7-23 9251759443) GLUCOSE (test code = 217 mg/dL 70-110 H 1766884812) CREATININE (test code = 1.05 mg/dL 0.50-1.04 H 8219523922) TOTAL BILI (test code = 0.7 mg/dL 0.1-1.9 4313016408) CALCIUM (test code = 8.5 mg/dL 8.6-10.6 L 8848094531) T PROTEIN (test code = 7.2 g/dL 6.3-8.2 0925005754) ALBUMIN (test code = 3.9 g/dL 3.5-5.0 4260989471) ALK PHOS (test code = 161 U/L 34-122 H 7514863370) ALTv (test code = 50 U/L 5-35 H 1742-6) AST(SGOT) (test code = 61 U/L 13-40 H 1456222267) eGFR (test code = mL/min/1.73m2 1187912948) JENNIFFER (test code = JENNIFFER) Association of [...] tests). Lab Interpretation Abnormal (test code = 49024-9) [facility] HospitalPHOSPHORUS2022-07-06 12:25:53 Test Item Value Reference Range Interpretation Comments PHOSPHORUS (test code = 6037725990) 5.3 mg/dL 2.5-5.0 H Lab Interpretation (test code = Abnormal 71242-5) [facility] HospitalURIC [id number] 12:25:33 Test Item Value Reference Range Interpretation Comments URIC ACID (test code = 2952854447) 9.5 mg/dL 2.9-6.0 H Lab Interpretation (test code = Abnormal 95691-5) [facility] HospitalCREATINE [id number] 12:25:13 Test Item Value Reference Range Interpretation Comments CK (test code = 6919858270) 27 U/L 33-194 L Lab Interpretation (test code = Abnormal 13957-1) [facility] HospitalGLYCOSYLATED HEMOGLOBIN (A1C)2022-01-28 07:50:20 Test Item Value Reference Range Interpretation Comments HGB A1C (test code = 8.9 % 4.0-5.7 H 4548-4) JENNIFFER (test code = JENNIFFER) Reference RangesNormal: <5.7%Prediabetes: 5.7 - 6.4%Diabetes: > 6.5% Lab Interpretation (test Abnormal code = 60297-3) [facility] HospitalTROPONIN [id number] 03:04:27 Test Item Value Reference Interpretation Comments Range TROPONIN I (test 0.002 ng/mL See_Comment [Automated code = 4019092871) message] The system which generated this result [...] biotin. Lab Interpretation Normal (test code = 67711-0) [facility] HospitalN-TERMINAL [id number] 03:01:09 Test Item Value Reference Range Interpretation Comments NT-proBNP (test code 358 pg/mL See_Comment H [Autom ated = 5675603878) message] The system which generated this result transmitted reference range : <=125. The reference range was not used to interpret this result as normal/abnormal . JENNIFFER (test code = JENNIFFER) Biotin has been reported to cause a negative bias, interpret results relative to patient's use of biotin. Lab Interpretation Abnormal (test code = 07763-5) [facility] HospitalACTIVATED PARTIAL THRMPLAS [id number] 02:54:28 Test Item Value Reference Range Interpretation Comments APTT Patient (test See_Comment [Automat ed code = 3173-2) message] The system which generated this result transmitted reference range : 23 - 38 Seconds . The reference range was not used to interpr et this result as normal/abnormal . JENNIFFER (test code = JENNIFFER) The [facility] patient population mean normal value for aPTT is 30 seconds. Lab Interpretation Normal (test code = 13542-9) [facility] HospitalCOMP. METABOLIC PANEL (51294)2022-01-28 02:52:27 Test Item Value Reference Range Interpretation Comments NA (test code = 137 mmol/L 135-145 3691312532) K (test code = 5.0 mmol/L 3.5-5.0 3306848990) CL (test code = 101 mmol/L 98-108 2832702195) CO2 TOTAL (test code = 22 mmol/L 23-31 L 2574424848) AGAP (test code = 2-16 7685552029) BUN (test code = 21 mg/dL 7-23 3255682587) GLUCOSE (test code = 334 mg/dL 70-110 H 5344076953) CREATININE (test code = 1.03 mg/dL 0.50-1.04 1140744564) TOTAL BILI (test code = 0.8 mg/dL 0.1-1.9 4835641048) CALCIUM (test code = 9.0 mg/dL 8.6-10.6 5207721466) T PROTEIN (test code = 7.3 g/dL 6.3-8.2 6050536988) ALBUMIN (test code = 4.2 g/dL 3.5-5.0 3859056279) ALK PHOS (test code = 186 U/L 34-122 H 0463972096) ALTv (test code = 53 U/L 5-35 H 1742-6) AST(SGOT) (test code = 98 U/L 13-40 H 4416066754) eGFR (test code = mL/min/1.73m2 9979312384) JENNIFFER (test code = JENNIFFER) Association of [...] tests). Lab Interpretation Abnormal (test code = 05496-5) [facility] HospitalPROTHROMBIN TIME / [id number] 02:51:06 Test Item Value Reference Range Interpretation Comments PROTIME PATIENT (test See_Comment [Auto mated message] code = 5964-2) The system [employer] generated this result transmitted ref erence range: 12.0 - 1 4.7 Seconds. The re ference range was not u sed to interpret this result as normal/abnor mal. INR (test code = 6301-6) Nor mal INR <1.1; Warfarin Therap eutic range 2.0 to 3. 0 or 2.5 to 3.5, dep ending upon the indica tions. Lab Interpretation (test Normal code = 35159-6) [facility] WITH [id number] 02:43:03 Test Item Value Reference Range Interpretation [...] RDW-SD (test code = 49.4 fL 39.0-49.9 28132-3) RDW-CV (test code = 15.6 % 12.0-15.5 H 788-0) PLT (test code = See_Comment [Automated 777-3) message] The sy stem which generated this result transmitted reference range : 166 - 358 10*3/ ?L. The reference r josselyn was not used to interpret this result as normal/abnormal . MPV (test code = 9.7 fL 9.5-12.9 08034-4) NRBC/100 WBC (test See_Comment [Automat ed code = 7285679008) message] The system which generated this result transmitted reference range : 0.0 - 10.0 /100 WBCs. The refer ence range was not u sed to interpret th is result as normal/abnormal . NRBC x10^3 (test code <0.01 See_Comment [Auto mated = 4445360357) message] The s ystem which generated this result transmitted reference range : 10*3/?L. The reference range was not used to interpret this result as normal/abnormal . GRAN MAT (NEUT) % 88.0 % (test code = 770-8) IMM GRAN % (test code 0.60 % = 3339483748) LYMPH % (test code = 5.4 % 736-9) MONO % (test code = 4.5 % 5905-5) EOS % (test code = 0.9 % 713-8) BASO % (test code = 0.6 % 706-2) GRAN MAT x10^3(ANC) 9.50 10*3/uL 1.88-7.09 H (test code = 6441712011) IMM GRAN x10^3 (test 0.06 10*3/uL 0.00-0.06 code = 7520385443) LYMPH x10^3 (test code 0.58 10*3/uL 1.32-3.29 L = 731-0) MONO x10^3 (test code 0.49 10*3/uL 0.33-0.92 = 742-7) EOS x10^3 (test code = 0.10 10*3/uL 0.03-0.39 711-2) BASO x10^3 (test code 0.06 10*3/uL 0.01-0.07 = 704-7) Lab Interpretation Abnormal (test code = 71987-6) [facility]. METABOLIC PANEL (26305)2022-01-12 23:54:59 Test Item Value Reference Range Interpretation Comments NA (test code = 143 mmol/L 135-145 9511204253) K (test code = 4.1 mmol/L 3.5-5.0 8775395045) CL (test code = 103 mmol/L 98-108 9191336459) CO2 TOTAL (test code = 27 mmol/L 23-31 2206788485) AGAP (test code = 2-16 4289144871) BUN (test code = 12 mg/dL 7-23 8590138882) GLUCOSE (test code = 278 mg/dL 70-110 H 4451223069) CREATININE (test code = 0.61 mg/dL 0.50-1.04 6947329495) TOTAL BILI (test code = 0.6 mg/dL 0.1-1.2 6387772080) CALCIUM (test code = 9.6 mg/dL 8.6-10.6 2174661492) T PROTEIN (test code = 7.6 g/dL 6.3-8.2 9895457384) ALBUMIN (test code = 4.3 g/dL 3.5-5.0 5119564155) ALK PHOS (test code = 130 U/L 34-122 H 9131230393) ALTv (test code = 29 U/L 5-35 2-6) AST(SGOT) (test code = 39 U/L 13-40 9064526080) eGFR (test code = mL/min/1.73m2 9398101391) JENNIFFER (test code = JENNIFFER) Association of [...] tests). Lab Interpretation Abnormal (test code = 32170-2) [facility] WITH [id number] 23:43:55 Test Item Value Reference Range Interpretation [...] (test code = 47.8 fL 39.0-49.9 Previous 61068-5) preliminary verified result was 48.1 fL on [...] (test code = 10.0 fL 9.5-12.9 Previous 73320-0) preliminary verified result was 9.9 fL on 2021 at 1842 CDT IPF % (test code = 3.9 % 1.3-7.7 Platelet count 1578646373) measured by fluorescence method. NRBC/100 WBC (test See_Comment [Automat ed code = 2544819337) message] The system which generated this result transmitted reference range : 0.0 - 10.0 /100 WBCs. The refer ence range was not u sed to interpret th is result as normal/abnormal . NRBC x10^3 (test code <0.01 See_Comment [Auto mated = 4724735828) message] The s ystem which generated this result transmitted reference range : 10*3/?L. The reference range was not used to interpret this result as normal/abnormal . GRAN MAT (NEUT) % 85.9 % (test code = 770-8) IMM GRAN % (test code 0.90 % = 7964831789) LYMPH % (test code = 4.7 % 736-9) MONO % (test code = 5.3 % 5905-5) EOS % (test code = 2.6 % 713-8) BASO % (test code = 0.6 % 706-2) GRAN MAT x10^3(ANC) 6.93 10*3/uL 1.88-7.09 (test code = 9836713435) IMM GRAN x10^3 (test 0.07 10*3/uL 0.00-0.06 H code = 0708664564) LYMPH x10^3 (test code 0.38 10*3/uL 1.32-3.29 L = 731-0) MONO x10^3 (test code 0.43 10*3/uL 0.33-0.92 = 742-7) EOS x10^3 (test code = 0.21 10*3/uL 0.03-0.39 711-2) BASO x10^3 (test code 0.05 10*3/uL 0.01-0.07 = 704-7) Lab Interpretation Abnormal (test code = 14363-4) [facility] + LACTIC [id number] 23:29:12 Test Item Value Reference Range Interpretation Comments PH (test code = 7.32-7.42 L 3030011216) PCO2 CELIA (test code = See_Comment H [Auto mated 5264408929) message] The sy stem which generated this result transmitted reference range : 41 - 51 mmHg. The reference range was not used to interpret this result as normal/abnormal . PO2 CELIA (test code = See_Comment HH [Autom ated 9326463493) message] The sy stem which generated this result transmitted reference range : 25 - 40 mmHg. The reference range was not used to interpret this result as normal/abnormal . HCO3 CELIA (test code = See_Comment H [Auto mated 9822795549) message] The sy stem which generated this result transmitted reference range : 24 - 28 mEq/L. The reference range was not used to interpret this result as normal/abnormal . AC VBE(BEAKER) (test mEq/L code = 5097300917) THB CELIA (test code = 12.1 g/dL 12.0-16.0 2035924582) %O2HB CELIA (test code = 90.8 % 52.0-63.0 H 1709827761) %COHB CELIA (test code = 0.0 % 0.0-1.5 2627615350) %METHB CELIA (test code = 0.0 % 0.4-1.5 L 2656963834) VOL%O2 CELIA (test code = 15.5 % 6.0-12.0 H 9592533173) NA (test code = 145 mmol/L 135-145 4109018001) K+ (test code = 4.1 mmol/L 3.5-5.0 6694231467) AC CA IONZ (test code = 5.30 mg/dL 4.50-5.30 0458657548) GLUCOSE (test code = 291 mg/dL 70-110 H 7660294870) LACTIC ACID (test code 1.04 mmol/L 0.50-2.20 = 9153219259) Lab Interpretation Abnormal (test code = 75596-3) [facility] GLUCOSE (AUTOMATED)2022-01-12 17:49:50 Test Item Value Reference Range Interpretation Comments POCT GLU (test code = 0684533808) 120 mg/dL 70-110 H Lab Interpretation (test code = Abnormal 36080-6) [facility] GLUCOSE (AUTOMATED)2022-01-12 13:25:37 Test Item Value Reference Range Interpretation Comments POCT GLU (test code = 3765767468) 76 mg/dL 70-110 Lab Interpretation (test code = Normal 50696-4) [facility] GLUCOSE (AUTOMATED)2022-01-12 05:53:23 Test Item Value Reference Range Interpretation Comments POCT GLU (test code = 7047632815) 107 mg/dL 70-110 Lab Interpretation (test code = Normal 64287-0) [facility] GLUCOSE (AUTOMATED)2022-01-11 23:03:13 Test Item Value Reference Range Interpretation Comments POCT GLU (test code = 5762265412) 142 mg/dL 70-110 H Lab Interpretation (test code = Abnormal 67347-4) [facility] GLUCOSE (AUTOMATED)2022-01-11 17:22:09 Test Item Value Reference Range Interpretation Comments POCT GLU (test code = 9051134343) 106 mg/dL 70-110 Lab Interpretation (test code = Normal 16949-3) [facility] GLUCOSE (AUTOMATED)2022-01-11 13:11:20 Test Item Value Reference Range Interpretation Comments POCT GLU (test code = 4076839853) 91 mg/dL 70-110 Lab Interpretation (test code = Normal 27566-9) [facility] METABOLIC PANEL (NA, K, CL, CO2, GLUCOSE, BUN, CREATININE, CA)2022-01-11 11:52:16 Test Item Value Reference Range Interpretation Comments NA (test code = 141 mmol/L 135-145 7588837346) K (test code = 3.7 mmol/L 3.5-5.0 2380873431) CL (test code = 100 mmol/L 98-108 9714750802) CO2 TOTAL (test code 30 mmol/L 23-31 = 7267446743) AGAP (test code = 2-16 3436530628) BUN (test code = 14 mg/dL 7-23 2477616183) GLUCOSE (test code = 85 mg/dL 70-110 7425526955) CREATININE (test code 0.62 mg/dL 0.50-1.04 = 6612147600) CALCIUM (test code = 8.9 mg/dL 8.6-10.6 9858347360) eGFR (test code = mL/min/1.73m2 7546016157) JENNIFFER (test code = JENNIFFER) Association of [...] or urine or abnormalities in imaging tests). [facility] 11:52:16 Test Item Value Reference Range Interpretation Comments MAGNESIUM (test code = 4637578488) 1.9 mg/dL 1.7-2.4 Lab Interpretation (test code = Normal 83692-8) [facility]2022-01-11 11:36:18 Test Item Value Reference Range Interpretation Comments POCT GLU (test code = 7453497883) 95 mg/dL 70-110 Lab Interpretation (test code = Normal 16537-4) [facility] WITH [id number] 10:51:12 Test Item Value Reference Range Interpretation [...] RDW-SD (test code = 46.5 fL 39.0-49.9 01152-3) RDW-CV (test code = 14.3 % 12.0-15.5 788-0) PLT (test code = See_Comment [Automated 777-3) message] The sy stem which generated this result transmitted reference range : 166 - 358 10*3/ ?L. The reference r josselyn was not used to interpret this result as normal/abnormal . MPV (test code = 8.5 fL 9.5-12.9 L 92354-4) NRBC/100 WBC (test See_Comment [Automat ed code = 9622254709) message] The system which generated this result transmitted reference range : 0.0 - 10.0 /100 WBCs. The refer ence range was not u sed to interpret th is result as normal/abnormal . NRBC x10^3 (test code <0.01 See_Comment [Auto mated = 6105093739) message] The s ystem which generated this result transmitted reference range : 10*3/?L. The reference range was not used to interpret this result as normal/abnormal . GRAN MAT (NEUT) % 72.4 % (test code = 770-8) IMM GRAN % (test code 0.60 % = 6749323559) LYMPH % (test code = 12.0 % 736-9) MONO % (test code = 9.8 % 5905-5) EOS % (test code = 4.4 % 713-8) BASO % (test code = 0.8 % 706-2) GRAN MAT x10^3(ANC) 4.64 10*3/uL 1.88-7.09 (test code = 7484491467) IMM GRAN x10^3 (test 0.04 10*3/uL 0.00-0.06 code = 4250245978) LYMPH x10^3 (test code 0.77 10*3/uL 1.32-3.29 L = 731-0) MONO x10^3 (test code 0.63 10*3/uL 0.33-0.92 = 742-7) EOS x10^3 (test code = 0.28 10*3/uL 0.03-0.39 711-2) BASO x10^3 (test code 0.05 10*3/uL 0.01-0.07 = 704-7) Lab Interpretation Abnormal (test code = 92388-7) [facility] GLUCOSE (AUTOMATED)2022-01-11 04:16:05 Test Item Value Reference Range Interpretation Comments POCT GLU (test code = 1275087889) 100 mg/dL 70-110 Lab Interpretation (test code = Normal 64179-3) [facility] GLUCOSE (AUTOMATED)2022-01-10 22:37:14 Test Item Value Reference Range Interpretation Comments POCT GLU (test code = 2160444767) 109 mg/dL 70-110 Lab Interpretation (test code = Normal 42256-3) [facility] GLUCOSE (AUTOMATED)2022-01-10 16:49:31 Test Item Value Reference Range Interpretation Comments POCT GLU (test code = 7052362651) 151 mg/dL 70-110 H Lab Interpretation (test code = Abnormal 79156-1) [facility] GLUCOSE (AUTOMATED)2022-01-10 13:04:04 Test Item Value Reference Range Interpretation Comments POCT GLU (test code = 3540895596) 133 mg/dL 70-110 H Lab Interpretation (test code = Abnormal 00452-0) [facility] GLUCOSE (AUTOMATED)2022-01-10 10:48:27 Test Item Value Reference Range Interpretation Comments POCT GLU (test code = 1715158390) 140 mg/dL 70-110 H Lab Interpretation (test code = Abnormal 18807-7) [facility] METABOLIC PANEL (NA, K, CL, CO2, GLUCOSE, BUN, CREATININE, CA)2022-01-10 07:43:41 Test Item Value Reference Range Interpretation Comments NA (test code = 139 mmol/L 135-145 3418737654) K (test code = 4.1 mmol/L 3.5-5.0 9462709755) CL (test code = 100 mmol/L 98-108 8826026678) CO2 TOTAL (test code = 32 mmol/L 23-31 H 4079096791) AGAP (test code = 2-16 4062966401) BUN (test code = 18 mg/dL 7-23 0156001364) GLUCOSE (test code = 146 mg/dL 70-110 H 6031900481) CREATININE (test code = 0.79 mg/dL 0.50-1.04 3160489952) CALCIUM (test code = 8.7 mg/dL 8.6-10.6 0282311695) eGFR (test code = mL/min/1.73m2 5149024577) JENNIFFER (test code = JENNIFFER) Association of [...] tests). Lab Interpretation Abnormal (test code = 97496-2) [facility] 07:43:41 Test Item Value Reference Range Interpretation Comments MAGNESIUM (test code = 3384813875) 2.1 mg/dL 1.7-2.4 Lab Interpretation (test code = Normal 95948-9) [facility] WITH [id number] 07:29:01 Test Item Value Reference Range Interpretation [...] RDW-SD (test code = 47.2 fL 39.0-49.9 80022-3) RDW-CV (test code = 14.1 % 12.0-15.5 788-0) PLT (test code = See_Comment [Automated 777-3) message] The sy stem which generated this result transmitted reference range : 166 - 358 10*3/ ?L. The reference r josselyn was not used to interpret this result as normal/abnormal . MPV (test code = 8.3 fL 9.5-12.9 L 45639-0) NRBC/100 WBC (test See_Comment [Automat ed code = 7613604315) message] The system which generated this result transmitted reference range : 0.0 - 10.0 /100 WBCs. The refer ence range was not u sed to interpret th is result as normal/abnormal . NRBC x10^3 (test code <0.01 See_Comment [Auto mated = 6943837986) message] The s ystem which generated this result transmitted reference range : 10*3/?L. The reference range was not used to interpret this result as normal/abnormal . GRAN MAT (NEUT) % 75.5 % (test code = 770-8) IMM GRAN % (test code 0.50 % = 2219752782) LYMPH % (test code = 13.6 % 736-9) MONO % (test code = 5.4 % 5905-5) EOS % (test code = 4.4 % 713-8) BASO % (test code = 0.6 % 706-2) GRAN MAT x10^3(ANC) 5.01 10*3/uL 1.88-7.09 (test code = 2543555426) IMM GRAN x10^3 (test 0.03 10*3/uL 0.00-0.06 code = 6104520499) LYMPH x10^3 (test code 0.90 10*3/uL 1.32-3.29 L = 731-0) MONO x10^3 (test code 0.36 10*3/uL 0.33-0.92 = 742-7) EOS x10^3 (test code = 0.29 10*3/uL 0.03-0.39 711-2) BASO x10^3 (test code 0.04 10*3/uL 0.01-0.07 = 704-7) Lab Interpretation Abnormal (test code = 11592-9) [facility] GLUCOSE (AUTOMATED)2022-01-10 04:49:48 Test Item Value Reference Range Interpretation Comments POCT GLU (test code = 5148109748) 150 mg/dL 70-110 H Lab Interpretation (test code = Abnormal 57885-1) [facility] GLUCOSE (AUTOMATED)2022-01-09 17:24:10 Test Item Value Reference Range Interpretation Comments POCT GLU (test code = 0320368560) 114 mg/dL 70-110 H Lab Interpretation (test code = Abnormal 78921-6) [facility] GLUCOSE (AUTOMATED)2022-01-09 12:48:19 Test Item Value Reference Range Interpretation Comments POCT GLU (test code = 6633635624) 107 mg/dL 70-110 Lab Interpretation (test code = Normal 52310-5) [facility] METABOLIC PANEL (NA, K, CL, CO2, GLUCOSE, BUN, CREATININE, CA)2022-01-09 11:11:00 Test Item Value Reference Range Interpretation Comments NA (test code = 141 mmol/L 135-145 7319676820) K (test code = 3.7 mmol/L 3.5-5.0 7263893623) CL (test code = 100 mmol/L 98-108 3835671850) CO2 TOTAL (test code = 32 mmol/L 23-31 H 8340144945) AGAP (test code = 2-16 0589217746) BUN (test code = 19 mg/dL 7-23 2727012450) GLUCOSE (test code = 115 mg/dL 70-110 H 6149840547) CREATININE (test code = 0.81 mg/dL 0.50-1.04 6851890587) CALCIUM (test code = 8.6 mg/dL 8.6-10.6 9702574998) eGFR (test code = mL/min/1.73m2 0926886014) JENNIFFER (test code = JENNIFFER) Association of [...] tests). Lab Interpretation Abnormal (test code = 76890-9) [facility] WITH [id number] 10:57:57 Test Item Value Reference Range Interpretation Comments WBC (test code = See_Comment [Automated 5209-2) message] The sy stem which generated this result transmitted reference range : 4.30 - 11.10 10*3/?L. The reference range was not used to interpret this result as normal/abnormal . RBC (test code = See_Comment L [Automated 778-8) message] The sy stem which generated this [...] RDW-SD (test code = 49.1 fL 39.0-49.9 50820-2) RDW-CV (test code = 14.6 % 12.0-15.5 788-0) PLT (test code = See_Comment [Automated 777-3) message] The sy stem which generated this result transmitted reference range : 166 - 358 10*3/ ?L. The reference r josselyn was not used to interpret this result as normal/abnormal . MPV (test code = 8.6 fL 9.5-12.9 L 61806-7) NRBC/100 WBC (test See_Comment [Automat ed code = 3943773354) message] The system which generated this result transmitted reference range : 0.0 - 10.0 /100 WBCs. The refer ence range was not u sed to interpret th is result as normal/abnormal . NRBC x10^3 (test code <0.01 See_Comment [Auto mated = 5963343329) message] The s ystem which generated this result transmitted reference range : 10*3/?L. The reference range was not used to interpret this result as normal/abnormal . GRAN MAT (NEUT) % 79.2 % (test code = 770-8) IMM GRAN % (test code 0.40 % = 1676854344) LYMPH % (test code = 10.7 % 736-9) MONO % (test code = 5.4 % 5905-5) EOS % (test code = 3.5 % 713-8) BASO % (test code = 0.8 % 706-2) GRAN MAT x10^3(ANC) 6.15 10*3/uL 1.88-7.09 (test code = 4893979623) IMM GRAN x10^3 (test 0.03 10*3/uL 0.00-0.06 code = 7221637621) LYMPH x10^3 (test code 0.83 10*3/uL 1.32-3.29 L = 731-0) MONO x10^3 (test code 0.42 10*3/uL 0.33-0.92 = 742-7) EOS x10^3 (test code = 0.27 10*3/uL 0.03-0.39 711-2) BASO x10^3 (test code 0.06 10*3/uL 0.01-0.07 = 704-7) Lab Interpretation Abnormal (test code = 77422-7) [facility] GLUCOSE (AUTOMATED)2022-01-09 10:44:16 Test Item Value Reference Range Interpretation Comments POCT GLU (test code = 4697163853) 116 mg/dL 70-110 H Lab Interpretation (test code = Abnormal 89674-2) [facility] GLUCOSE (AUTOMATED)2022-01-09 04:22:02 Test Item Value Reference Range Interpretation Comments POCT GLU (test code = 9116212222) 124 mg/dL 70-110 H Lab Interpretation (test code = Abnormal 35799-3) [facility] GLUCOSE (AUTOMATED)2022-01-08 23:21:27 Test Item Value Reference Range Interpretation Comments POCT GLU (test code = 1948072394) 122 mg/dL 70-110 H Lab Interpretation (test code = Abnormal 79480-8) [facility] GLUCOSE (AUTOMATED)2022-01-08 18:15:20 Test Item Value Reference Range Interpretation Comments POCT GLU (test code = 8244775939) 104 mg/dL 70-110 Lab Interpretation (test code = Normal 37851-2) [facility] GLUCOSE (AUTOMATED)2022-01-08 13:35:04 Test Item Value Reference Range Interpretation Comments POCT GLU (test code = 8041734348) 132 mg/dL 70-110 H Lab Interpretation (test code = Abnormal 57376-0) [facility] METABOLIC PANEL (NA, K, CL, CO2, GLUCOSE, BUN, CREATININE, CA)2022-01-08 11:08:57 Test Item Value Reference Range Interpretation Comments NA (test code = 142 mmol/L 135-145 1810994396) K (test code = 3.5 mmol/L 3.5-5.0 1724983049) CL (test code = 99 mmol/L 98-108 7748793155) CO2 TOTAL (test code = 34 mmol/L 23-31 H 3710125002) AGAP (test code = 2-16 3560871831) BUN (test code = 16 mg/dL 7-23 4917838797) GLUCOSE (test code = 131 mg/dL 70-110 H 7403016540) CREATININE (test code = 0.83 mg/dL 0.50-1.04 3277956456) CALCIUM (test code = 8.5 mg/dL 8.6-10.6 L 9908097714) eGFR (test code = mL/min/1.73m2 0087450820) JENNIFFER (test code = JENNIFFER) Association of [...] tests). Lab Interpretation Abnormal (test code = 26633-8) [facility] WITH [id number] 10:58:37 Test Item Value Reference Range Interpretation Comments WBC (test code = See_Comment [Automated 4290-2) message] The sy stem which generated this [...] RDW-SD (test code = 48.8 fL 39.0-49.9 78877-4) RDW-CV (test code = 14.7 % 12.0-15.5 788-0) PLT (test code = See_Comment [Automated 777-3) message] The sy stem which generated this result transmitted reference range : 166 - 358 10*3/ ?L. The reference r josselyn was not used to interpret this result as normal/abnormal . MPV (test code = 8.5 fL 9.5-12.9 L 12705-0) NRBC/100 WBC (test See_Comment [Automat ed code = 5033416509) message] The system which generated this result transmitted reference range : 0.0 - 10.0 /100 WBCs. The refer ence range was not u sed to interpret th is result as normal/abnormal . NRBC x10^3 (test code <0.01 See_Comment [Auto mated = 7892005945) message] The s ystem which generated this result transmitted reference range : 10*3/?L. The reference range was not used to interpret this result as normal/abnormal . GRAN MAT (NEUT) % 75.9 % (test code = 770-8) IMM GRAN % (test code 0.30 % = 8335920527) LYMPH % (test code = 12.3 % 736-9) MONO % (test code = 7.0 % 5905-5) EOS % (test code = 3.6 % 713-8) BASO % (test code = 0.9 % 706-2) GRAN MAT x10^3(ANC) 4.89 10*3/uL 1.88-7.09 (test code = 3997189626) IMM GRAN x10^3 (test <0.03 0.00-0.06 code = 4022185138) LYMPH x10^3 (test code 0.79 10*3/uL 1.32-3.29 L = 731-0) MONO x10^3 (test code 0.45 10*3/uL 0.33-0.92 = 742-7) EOS x10^3 (test code = 0.23 10*3/uL 0.03-0.39 711-2) BASO x10^3 (test code 0.06 10*3/uL 0.01-0.07 = 704-7) Lab Interpretation Abnormal (test code = 24113-8) [facility] GLUCOSE (AUTOMATED)2022-01-08 10:57:56 Test Item Value Reference Range Interpretation Comments POCT GLU (test code = 5362253391) 122 mg/dL 70-110 H Lab Interpretation (test code = Abnormal 77577-1) [facility] GLUCOSE (AUTOMATED)2022-01-08 05:44:22 Test Item Value Reference Range Interpretation Comments POCT GLU (test code = 6691964381) 150 mg/dL 70-110 H Lab Interpretation (test code = Abnormal 20149-9) [facility] GLUCOSE (AUTOMATED)2022-01-07 22:00:04 Test Item Value Reference Range Interpretation Comments POCT GLU (test code = 7784136334) 175 mg/dL 70-110 H Lab Interpretation (test code = Abnormal 60647-1) [facility] GLUCOSE (AUTOMATED)2022-01-07 17:25:35 Test Item Value Reference Range Interpretation Comments POCT GLU (test code = 8930085121) 149 mg/dL 70-110 H Lab Interpretation (test code = Abnormal 38523-3) [facility] [id number] 15:01:23 Test Item Value Reference Range Interpretation Comments Blood Culture-Aerobic No organisms No growth Previo us (test code = 22014-9) isolated prelim inary verified result was Culture [...] Culture-Anaerobic isolated preliminar y (test code = 29600-4) verifi ed result was Culture In Progress on 01/02/2022 at 13 CDTPrevious preliminary verified result was No growth a t 24 hours on 01/03/2022 at 10 CDTPrevious preliminary verified result was No growth a t 48 hours on 01/04/2022 at 10 CDTPrevious preliminary verified result was No growth a t 72 hours on 01/05/2022 at 10 CDT Lab Interpretation Normal (test code = 13962-5) [facility] Culture - Peripheral Vein # 15:01:23 Test Item Value Reference Range Interpretation Comments Blood Culture-Aerobic No organisms No growth Previo us (test code = 30469-7) isolated prelim inary verified result was Culture [...] Culture-Anaerobic isolated preliminar y (test code = 84881-1) verifi ed result was Culture In Progress [...] CDT Lab Interpretation Normal (test code = 81047-2) [facility]-07 13:20:20 Test Item Value Reference Range Interpretation Comments POCT GLU (test code = 8744570641) 153 mg/dL 70-110 H Lab Interpretation (test code = Abnormal 63423-4) [facility] METABOLIC PANEL (NA, K, CL, CO2, GLUCOSE, BUN, CREATININE, CA)2022-01-07 07:43:22 Test Item Value Reference Range Interpretation Comments NA (test code = 141 mmol/L 135-145 9387610602) K (test code = 3.8 mmol/L 3.5-5.0 4382261285) CL (test code = 101 mmol/L 98-108 1093877590) CO2 TOTAL (test code = 33 mmol/L 23-31 H 8649342247) AGAP (test code = 2-16 1693655325) BUN (test code = 13 mg/dL 7-23 3647777431) GLUCOSE (test code = 127 mg/dL 70-110 H 4526525679) CREATININE (test code = 0.89 mg/dL 0.50-1.04 2255852065) CALCIUM (test code = 8.4 mg/dL 8.6-10.6 L 4004736177) eGFR (test code = mL/min/1.73m2 9058418165) JENNIFFER (test code = JENNIFFER) Association of [...] tests). Lab Interpretation Abnormal (test code = 75045-5) [facility] with [id number] 07:29:22 Test Item Value Reference Range Interpretation [...] RDW-SD (test code = 48.2 fL 39.0-49.9 48370-5) RDW-CV (test code = 14.7 % 12.0-15.5 788-0) PLT (test code = See_Comment [Automated 777-3) message] The sy stem which generated this result transmitted reference range : 166 - 358 10*3/ ?L. The reference r josselyn was not used to interpret this result as normal/abnormal . MPV (test code = 9.0 fL 9.5-12.9 L 29684-2) NRBC/100 WBC (test See_Comment [Automat ed code = 0304173493) message] The system which generated this result transmitted reference range : 0.0 - 10.0 /100 WBCs. The refer ence range was not u sed to interpret th is result as normal/abnormal . NRBC x10^3 (test code <0.01 See_Comment [Auto mated = 6146916100) message] The s ystem which generated this result transmitted reference range : 10*3/?L. The reference range was not used to interpret this result as normal/abnormal . GRAN MAT (NEUT) % 81.4 % (test code = 770-8) IMM GRAN % (test code 0.30 % = 2018406959) LYMPH % (test code = 10.3 % 736-9) MONO % (test code = 4.6 % 5905-5) EOS % (test code = 2.8 % 713-8) BASO % (test code = 0.6 % 706-2) GRAN MAT x10^3(ANC) 6.39 10*3/uL 1.88-7.09 (test code = 6548120025) IMM GRAN x10^3 (test <0.03 0.00-0.06 code = 7131918582) LYMPH x10^3 (test code 0.81 10*3/uL 1.32-3.29 L = 731-0) MONO x10^3 (test code 0.36 10*3/uL 0.33-0.92 = 742-7) EOS x10^3 (test code = 0.22 10*3/uL 0.03-0.39 711-2) BASO x10^3 (test code 0.05 10*3/uL 0.01-0.07 = 704-7) Lab Interpretation Abnormal (test code = 83412-1) [facility] 05:54:55 Test Item Value Reference Range Interpretation Comments POCT GLU (test code = 8075695563) 125 mg/dL 70-110 H Lab Interpretation (test code = Abnormal 72608-3) [facility] [id number] 04:01:23 Test Item Value Reference Range Interpretation Comments Blood Culture-Aerobic No organisms No growth Previo us (test code = 14013-3) isolated prelim inary verified result was Culture In Progress on 01/02/2022 at 07 26 CDTPrevious preliminary verified result was No growth a t 24 hours on 01/02/2022 at 16 08 CDTPrevious preliminary verified result was No growth a t 48 hours on 01/03/2022 at 16 08 CDTPrevious preliminary verified result was No growth a t 72 hours on 01/04/2022 at 22 01 CDT Blood No organisms No growth Previous Culture-Anaerobic isolated preliminar y (test code = 82142-2) verifi ed result was Culture In Progress on 01/02/2022 at 07 26 CDTPrevious preliminary verified result was No growth a t 24 hours on 01/02/2022 at 16 08 CDTPrevious preliminary verified result was No growth a t 48 hours on 01/03/2022 at 16 08 CDTPrevious preliminary verified result was No growth a t 72 hours on 01/04/2022 at 22 CDT JENNIFFER (test code = JENNIFFER) Optimal blood volume for culture is 8-10 mL per bottle. A suboptimal volume of blood was collected for this culture, which could adversely affect recovery and/or time of detection of organisms. Interpret results accordingly. Lab Interpretation Normal (test code = 85491-3) [facility] [id number] 03:01:22 Test Item Value Reference Range Interpretation Comments Blood Culture-Aerobic No organisms No growth Previo us (test code = 74407-6) isolated prelim inary verified result was Culture [...] Culture-Anaerobic isolated preliminar y (test code = 07051-5) verifi ed result was Culture In Progress [...] accordingly. Lab Interpretation Normal (test code = 84566-4) [facility] GLUCOSE (AUTOMATED)2022-01-06 23:38:26 Test Item Value Reference Range Interpretation Comments POCT GLU (test code = 8046030667) 181 mg/dL 70-110 H Lab Interpretation (test code = Abnormal 12359-7) [facility] GLUCOSE (AUTOMATED)2022-01-06 22:44:50 Test Item Value Reference Range Interpretation Comments POCT GLU (test code = 9361580419) 198 mg/dL 70-110 H Lab Interpretation (test code = Abnormal 15546-3) [facility] GLUCOSE (AUTOMATED)2022-01-06 17:41:24 Test Item Value Reference Range Interpretation Comments POCT GLU (test code = 0345231465) 172 mg/dL 70-110 H Lab Interpretation (test code = Abnormal 88960-7) [facility] GLUCOSE (AUTOMATED)2022-01-06 13:48:08 Test Item Value Reference Range Interpretation Comments POCT GLU (test code = 3614739417) 175 mg/dL 70-110 H Lab Interpretation (test code = Abnormal 79042-5) [facility] METABOLIC PANEL (NA, K, CL, CO2, GLUCOSE, BUN, CREATININE, CA)2022-01-06 09:39:37 Test Item Value Reference Range Interpretation Comments NA (test code = 139 mmol/L 135-145 7093633169) K (test code = 3.6 mmol/L 3.5-5.0 4302189542) CL (test code = 104 mmol/L 98-108 1091050277) CO2 TOTAL (test code = 30 mmol/L 23-31 2437114957) AGAP (test code = 2-16 5228647550) BUN (test code = 15 mg/dL 7-23 6702260153) GLUCOSE (test code = 164 mg/dL 70-110 H 8376201352) CREATININE (test code = 0.83 mg/dL 0.50-1.04 5240418260) CALCIUM (test code = 7.9 mg/dL 8.6-10.6 L 6635933423) eGFR (test code = mL/min/1.73m2 9824495426) JENNIFFER (test code = JENNIFFER) Association of [...] tests). Lab Interpretation Abnormal (test code = 49674-0) [facility] 09:39:37 Test Item Value Reference Range Interpretation Comments MAGNESIUM (test code = 0512623423) 2.5 mg/dL 1.7-2.4 H Lab Interpretation (test code = Abnormal 26155-5) [facility] 09:39:37 Test Item Value Reference Range Interpretation Comments PHOSPHORUS (test code = 5569635230) 3.8 mg/dL 2.5-5.0 Lab Interpretation (test code = Normal 57917-0) [facility] WITH [id number] 09:29:28 Test Item Value Reference Range Interpretation [...] RDW-SD (test code = 46.7 fL 39.0-49.9 19631-1) RDW-CV (test code = 14.5 % 12.0-15.5 788-0) PLT (test code = See_Comment [Automated 777-3) message] The sy stem which generated this result transmitted reference range : 166 - 358 10*3/ ?L. The reference r josselyn was not used to interpret this result as normal/abnormal . MPV (test code = 8.9 fL 9.5-12.9 L 87326-3) NRBC/100 WBC (test See_Comment [Automat ed code = 2654626248) message] The system which generated this result transmitted reference range : 0.0 - 10.0 /100 WBCs. The refer ence range was not u sed to interpret th is result as normal/abnormal . NRBC x10^3 (test code <0.01 See_Comment [Auto mated = 5423067516) message] The s ystem which generated this result transmitted reference range : 10*3/?L. The reference range was not used to interpret this result as normal/abnormal . GRAN MAT (NEUT) % 74.7 % (test code = 770-8) IMM GRAN % (test code 0.30 % = 7032329790) LYMPH % (test code = 15.5 % 736-9) MONO % (test code = 5.5 % 5905-5) EOS % (test code = 3.3 % 713-8) BASO % (test code = 0.7 % 706-2) GRAN MAT x10^3(ANC) 4.34 10*3/uL 1.88-7.09 (test code = 7552692717) IMM GRAN x10^3 (test <0.03 0.00-0.06 code = 7491132886) LYMPH x10^3 (test code 0.90 10*3/uL 1.32-3.29 L = 731-0) MONO x10^3 (test code 0.32 10*3/uL 0.33-0.92 L = 742-7) EOS x10^3 (test code = 0.19 10*3/uL 0.03-0.39 711-2) BASO x10^3 (test code 0.04 10*3/uL 0.01-0.07 = 704-7) Lab Interpretation Abnormal (test code = 56344-4) [facility] GLUCOSE (AUTOMATED)2022-01-05 20:46:31 Test Item Value Reference Range Interpretation Comments POCT GLU (test code = 3931919818) 175 mg/dL 70-110 H Lab Interpretation (test code = Abnormal 53206-1) [facility] GLUCOSE (AUTOMATED)2022-01-05 17:13:26 Test Item Value Reference Range Interpretation Comments POCT GLU (test code = 9465556784) 233 mg/dL 70-110 H Lab Interpretation (test code = Abnormal 88376-4) [facility] GLUCOSE (AUTOMATED)2022-01-05 13:24:19 Test Item Value Reference Range Interpretation Comments POCT GLU (test code = 3365470465) 208 mg/dL 70-110 H Lab Interpretation (test code = Abnormal 01574-4) [facility] METABOLIC PANEL (NA, K, CL, CO2, GLUCOSE, BUN, CREATININE, CA)2022-01-05 09:23:42 Test Item Value Reference Range Interpretation Comments NA (test code = 139 mmol/L 135-145 0475015883) K (test code = 3.7 mmol/L 3.5-5.0 5752689884) CL (test code = 102 mmol/L 98-108 9668192680) CO2 TOTAL (test code = 31 mmol/L 23-31 4348414439) AGAP (test code = 2-16 6351701265) BUN (test code = 19 mg/dL 7-23 7817500002) GLUCOSE (test code = 166 mg/dL 70-110 H 5550518822) CREATININE (test code = 0.85 mg/dL 0.50-1.04 5298987566) CALCIUM (test code = 8.1 mg/dL 8.6-10.6 L 0380005074) eGFR (test code = mL/min/1.73m2 3433569012) JENNIFFER (test code = JENNIFFER) Association of [...] tests). Lab Interpretation Abnormal (test code = 48498-1) [facility] 09:23:42 Test Item Value Reference Range Interpretation Comments MAGNESIUM (test code = 7133487912) 2.3 mg/dL 1.7-2.4 Lab Interpretation (test code = Normal 02578-0) [facility] 09:23:42 Test Item Value Reference Range Interpretation Comments PHOSPHORUS (test code = 3411753923) 3.5 mg/dL 2.5-5.0 Lab Interpretation (test code = Normal 97475-4) [facility] WITH [id number] 09:15:04 Test Item Value Reference Range Interpretation [...] RDW-SD (test code = 46.4 fL 39.0-49.9 78921-0) RDW-CV (test code = 14.4 % 12.0-15.5 788-0) PLT (test code = See_Comment [Automated 777-3) message] The sy stem which generated this result transmitted reference range : 166 - 358 10*3/ ?L. The reference r josselyn was not used to interpret this result as normal/abnormal . MPV (test code = 8.9 fL 9.5-12.9 L 32048-7) NRBC/100 WBC (test See_Comment [Automat ed code = 4842231382) message] The system which generated this result transmitted reference range : 0.0 - 10.0 /100 WBCs. The refer ence range was not u sed to interpret th is result as normal/abnormal . NRBC x10^3 (test code <0.01 See_Comment [Auto mated = 1953995997) message] The s ystem which generated this result transmitted reference range : 10*3/?L. The reference range was not used to interpret this result as normal/abnormal . GRAN MAT (NEUT) % 71.1 % (test code = 770-8) IMM GRAN % (test code 0.30 % = 4507361196) LYMPH % (test code = 17.7 % 736-9) MONO % (test code = 7.2 % 5905-5) EOS % (test code = 2.6 % 713-8) BASO % (test code = 1.1 % 706-2) GRAN MAT x10^3(ANC) 4.43 10*3/uL 1.88-7.09 (test code = 0223364136) IMM GRAN x10^3 (test <0.03 0.00-0.06 code = 1961838855) LYMPH x10^3 (test code 1.10 10*3/uL 1.32-3.29 L = 731-0) MONO x10^3 (test code 0.45 10*3/uL 0.33-0.92 = 742-7) EOS x10^3 (test code = 0.16 10*3/uL 0.03-0.39 711-2) BASO x10^3 (test code 0.07 10*3/uL 0.01-0.07 = 704-7) Lab Interpretation Abnormal (test code = 61854-0) [facility] GLUCOSE (AUTOMATED)2022-01-05 05:12:00 Test Item Value Reference Range Interpretation Comments POCT GLU (test code = 1491173022) 178 mg/dL 70-110 H Lab Interpretation (test code = Abnormal 24745-5) [facility] GLUCOSE (AUTOMATED)2022-01-04 22:12:41 Test Item Value Reference Range Interpretation Comments POCT GLU (test code = 8297115610) 154 mg/dL 70-110 H Lab Interpretation (test code = Abnormal 48462-4) [facility] GLUCOSE (AUTOMATED)2022-01-04 17:15:55 Test Item Value Reference Range Interpretation Comments POCT GLU (test code = 9765539663) 204 mg/dL 70-110 H Lab Interpretation (test code = Abnormal 13332-1) [facility] [id number] 13:56:02 Test Item Value Reference Range Interpretation Comments SPUTUM CULTURE 1+ Respiratory iveth: (test code = 622-1) Commensal upper respiratory microorganisms only. Gram stain (test No Epithelial cells code = 664-3) JENNIFFER (test code = Bacterial pathogens JENNIFFER) associated with lower respiratory infections were not identified, which include Pseudomonas aeruginosa and Staphylococcus aureus (MRSA or MSSA). [facility] - Please draw trough at 13813314-03-06 11:47:19 Test Item Value Reference Range Interpretation Comments VANCO TROUGH (test code 11.3 ug/mL 10.0-20.0 = 5279165644) JENNIFFER (test code = JENNIFFER) Toxic Range: ?>20 ug/mL 15-20 ug/mL is recommended for severe infection or when Vancomycin TORITO is greater than or equal to 2. Lab Interpretation (test Normal code = 30980-3) [facility] GLUCOSE (AUTOMATED)2022-01-04 11:19:57 Test Item Value Reference Range Interpretation Comments POCT GLU (test code = 5208193938) 189 mg/dL 70-110 H Lab Interpretation (test code = Abnormal 31417-5) [facility]OL[facility] (NA, K, CL, CO2, GLUCOSE, BUN, CREATININE, CA)2022-01-04 11:17:16 Test Item Value Reference Range Interpretation Comments NA (test code = 140 mmol/L 135-145 1493861767) K (test code = 3.3 mmol/L 3.5-5.0 L 1085403895) CL (test code = 99 mmol/L 98-108 9775001453) CO2 TOTAL (test code = 35 mmol/L 23-31 H 8112236012) AGAP (test code = 2-16 9882266919) BUN (test code = 18 mg/dL 7-23 8277651578) GLUCOSE (test code = 172 mg/dL 70-110 H 3598788607) CREATININE (test code = 0.89 mg/dL 0.50-1.04 3609884459) CALCIUM (test code = 8.2 mg/dL 8.6-10.6 L 3683009748) eGFR (test code = mL/min/1.73m2 5028537797) JENNIFFER (test code = JENNIFFER) Association of [...] tests). Lab Interpretation Abnormal (test code = 59058-5) [facility] 11:17:16 Test Item Value Reference Range Interpretation Comments MAGNESIUM (test code = 6632193302) 2.3 mg/dL 1.7-2.4 Lab Interpretation (test code = Normal 61085-1) [facility] 11:17:16 Test Item Value Reference Range Interpretation Comments PHOSPHORUS (test code = 9366154778) 2.7 mg/dL 2.5-5.0 Lab Interpretation (test code = Normal 83677-6) [facility] WITH [id number] 11:03:17 Test Item Value Reference Range Interpretation [...] RDW-SD (test code = 46.0 fL 39.0-49.9 92763-0) RDW-CV (test code = 14.4 % 12.0-15.5 788-0) PLT (test code = See_Comment [Automated 777-3) message] The sy stem which generated this result transmitted reference range : 166 - 358 10*3/ ?L. The reference r josselyn was not used to interpret this result as normal/abnormal . MPV (test code = 9.1 fL 9.5-12.9 L 45441-6) NRBC/100 WBC (test See_Comment [Automat ed code = 3929986623) message] The system which generated this result transmitted reference range : 0.0 - 10.0 /100 WBCs. The refer ence range was not u sed to interpret th is result as normal/abnormal . NRBC x10^3 (test code <0.01 See_Comment [Auto mated = 3913248107) message] The s ystem which generated this result transmitted reference range : 10*3/?L. The reference range was not used to interpret this result as normal/abnormal . GRAN MAT (NEUT) % 78.8 % (test code = 770-8) IMM GRAN % (test code 0.50 % = 1873685330) LYMPH % (test code = 11.8 % 736-9) MONO % (test code = 6.8 % 5905-5) EOS % (test code = 1.4 % 713-8) BASO % (test code = 0.7 % 706-2) GRAN MAT x10^3(ANC) 6.65 10*3/uL 1.88-7.09 (test code = 0692047142) IMM GRAN x10^3 (test 0.04 10*3/uL 0.00-0.06 code = 3618062734) LYMPH x10^3 (test code 1.00 10*3/uL 1.32-3.29 L = 731-0) MONO x10^3 (test code 0.57 10*3/uL 0.33-0.92 = 742-7) EOS x10^3 (test code = 0.12 10*3/uL 0.03-0.39 711-2) BASO x10^3 (test code 0.06 10*3/uL 0.01-0.07 = 704-7) Lab Interpretation Abnormal (test code = 89466-8) [facility] GLUCOSE (AUTOMATED)2022-01-04 06:29:40 Test Item Value Reference Range Interpretation Comments POCT GLU (test code = 3492136070) 211 mg/dL 70-110 H Lab Interpretation (test code = Abnormal 48654-4) [facility] GLUCOSE (AUTOMATED)2022-01-03 21:23:29 Test Item Value Reference Range Interpretation Comments POCT GLU (test code = 255 mg/dL 70-110 H Notifi ed Provider 0944077118) Lab Interpretation (test Abnormal code = 68369-0) [facility] GLUCOSE (AUTOMATED)2022-01-03 16:51:46 Test Item Value Reference Range Interpretation Comments POCT GLU (test code = 332 mg/dL 70-110 H Notifi ed Provider [id number]) Lab Interpretation (test Abnormal code = 05966-6) [facility] 13:01:05 Test Item Value Reference Range Interpretation Comments POCT GLU (test code = 2536464755) 332 mg/dL 70-110 H Lab Interpretation (test code = Abnormal 63861-0) [facility] + Lactic Udwk1973-10-30 10:21:11 Test Item Value Reference Range Interpretation Comments PH (test code = 2) 7.35-7.45 PCO2 (test code = See_Comment H [Automate d 6238022280) message] The sy stem which generated this result transmitted reference range : 35 - 45 mmHg. The reference range was not used to interpret this result as normal/abnormal . PO2 (test code = See_Comment [Automated 9789986217) message] The sy stem which generated this result transmitted reference range : 80 - 100 mmHg. The reference range was not used to interpret this result as normal/abnormal . HCO3 (test code = See_Comment H [Automate d 5252678532) message] The sy stem which generated this result transmitted reference range : 22 - 26 mEq/L. The reference range was not used to interpret this result as normal/abnormal . BE (test code = See_Comment H [Automated 2356942564) message] The sy stem which generated this result transmitted reference range : -3.0 - 3.0 mEq/ L. The reference r josselyn was not used to interpret this result as normal/abnormal . THB (test code = 10.1 g/dL 12.0-16.0 L 6292396505) %O2HB (test code = 95.5 % 94.0-99.0 4812416892) %COHB ART (test code = 0.3 % 0.0-1.5 2858659192) %METHB ART (test code = 0.1 % 0.4-1.5 L 9875320415) VOL%O2 ART (test code = 13.7 % 15.0-23.0 L 5565272053) NA (test code = 138 mmol/L 135-145 0890646243) K+ (test code = 4.1 mmol/L 3.5-5.0 3617842168) AC CA IONZ (test code = 4.50 mg/dL 4.50-5.30 4750131234) GLUCOSE (test code = 325 mg/dL 70-110 H 9718177351) LACTIC ACID (test code 1.27 mmol/L 0.50-2.20 = 4076996861) Lab Interpretation Abnormal (test code = 25764-0) [facility]22-01-03 10:18:30 Test Item Value Reference Range Interpretation Comments POCT GLU (test code = 8431560326) 338 mg/dL 70-110 H Lab Interpretation (test code = Abnormal 63651-9) [facility] METABOLIC PANEL (NA, K, CL, CO2, GLUCOSE, BUN, CREATININE, CA)2022-01-03 09:15:37 Test Item Value Reference Range Interpretation Comments NA (test code = 141 mmol/L 135-145 2719756380) K (test code = 4.3 mmol/L 3.5-5.0 4278619528) CL (test code = 103 mmol/L 98-108 6685245459) CO2 TOTAL (test code = 34 mmol/L 23-31 H 8888189076) AGAP (test code = 2-16 7769120793) BUN (test code = 19 mg/dL 7-23 2286226420) GLUCOSE (test code = 295 mg/dL 70-110 H 4532292779) CREATININE (test code = 0.80 mg/dL 0.50-1.04 5806105362) CALCIUM (test code = 7.9 mg/dL 8.6-10.6 L 9723541986) eGFR (test code = mL/min/1.73m2 8271576354) JENNIFFER (test code = JENNIFFER) Association of [...] tests). Lab Interpretation Abnormal (test code = 48669-7) [facility] 09:15:12 Test Item Value Reference Range Interpretation Comments MAGNESIUM (test code = 5271232840) 2.3 mg/dL 1.7-2.4 Lab Interpretation (test code = Normal 27447-0) [facility] WITH [id number] 09:02:53 Test Item Value Reference Range Interpretation Comments WBC (test code = See_Comment [Automated 0490-2) message] The sy stem which generated this result transmitted reference range : 4.30 - 11.10 10*3/?L. The reference range was not used to interpret this result as normal/abnormal . RBC (test code = See_Comment L [Automated 516-8) message] The sy stem which generated this [...] RDW-SD (test code = 46.8 fL 39.0-49.9 14009-5) RDW-CV (test code = 14.3 % 12.0-15.5 788-0) PLT (test code = See_Comment [Automated 777-3) message] The sy stem which generated this result transmitted reference range : 166 - 358 10*3/ ?L. The reference r josselyn was not used to interpret this result as normal/abnormal . MPV (test code = 9.1 fL 9.5-12.9 L 73072-8) NRBC/100 WBC (test See_Comment [Automat ed code = 3439384579) message] The system which generated this result transmitted reference range : 0.0 - 10.0 /100 WBCs. The refer ence range was not u sed to interpret th is result as normal/abnormal . NRBC x10^3 (test code <0.01 See_Comment [Auto mated = 4782846869) message] The s ystem which generated this result transmitted reference range : 10*3/?L. The reference range was not used to interpret this result as normal/abnormal . GRAN MAT (NEUT) % 86.9 % (test code = 770-8) IMM GRAN % (test code 0.50 % = 8132883967) LYMPH % (test code = 6.5 % 736-9) MONO % (test code = 5.2 % 5905-5) EOS % (test code = 0.6 % 713-8) BASO % (test code = 0.3 % 706-2) GRAN MAT x10^3(ANC) 8.30 10*3/uL 1.88-7.09 H (test code = 4665342616) IMM GRAN x10^3 (test 0.05 10*3/uL 0.00-0.06 code = 1032964886) LYMPH x10^3 (test code 0.62 10*3/uL 1.32-3.29 L = 731-0) MONO x10^3 (test code 0.50 10*3/uL 0.33-0.92 = 742-7) EOS x10^3 (test code = 0.06 10*3/uL 0.03-0.39 711-2) BASO x10^3 (test code 0.03 10*3/uL 0.01-0.07 = 704-7) Lab Interpretation Abnormal (test code = 96799-7) [facility] GLUCOSE (AUTOMATED)2022-01-03 04:48:55 Test Item Value Reference Range Interpretation Comments POCT GLU (test code = 4423061811) 258 mg/dL 70-110 H Lab Interpretation (test code = Abnormal 12674-7) [facility] GLUCOSE (AUTOMATED)2022-01-02 22:17:43 Test Item Value Reference Range Interpretation Comments POCT GLU (test code = 274 mg/dL 70-110 H Notifi ed Provider 7124157265) Lab Interpretation (test Abnormal code = 73771-3) [facility] GLUCOSE (AUTOMATED)2022-01-02 16:29:06 Test Item Value Reference Range Interpretation Comments POCT GLU (test code = 321 mg/dL 70-110 H Notifi ed Provider 6197061470) Lab Interpretation (test Abnormal code = 43915-6) [facility] HospitalGlycosylated Hemoglobin (A1C)2022-01-02 15:12:15 Test Item Value Reference Range Interpretation Comments HGB A1C (test code = 10.4 % 4.0-5.7 H 4548-4) JENNIFFER (test code = JENNIFFER) Reference RangesNormal: <5.7%Prediabetes: 5.7 - 6.4%Diabetes: > 6.5% Lab Interpretation (test Abnormal code = 14113-8) [facility] + Lactic Idyr1336-57-81 12:41:39 Test Item Value Reference Range Interpretation Comments PH (test code = 2) 7.35-7.45 L PCO2 (test code = See_Comment H [Automate d 6709763976) message] The sy stem which generated this result transmitted reference range : 35 - 45 mmHg. The reference range was not used to interpret this result as normal/abnormal . PO2 (test code = See_Comment H [Automated 3557925533) message] The sy stem which generated this result transmitted reference range : 80 - 100 mmHg. The reference range was not used to interpret this result as normal/abnormal . HCO3 (test code = See_Comment [Automate d 9535803092) message] The sy stem which generated this result transmitted reference range : 22 - 26 mEq/L. The reference range was not used to interpret this result as normal/abnormal . BE (test code = See_Comment [Automated 7932299190) message] The sy stem which generated this result transmitted reference range : -3.0 - 3.0 mEq/ L. The reference r josselyn was not used to interpret this result as normal/abnormal . THB (test code = 10.0 g/dL 12.0-16.0 L 8588924042) %O2HB (test code = 97.7 % 94.0-99.0 5357452757) %COHB ART (test code = 0.3 % 0.0-1.5 0663146852) %METHB ART (test code = 0.2 % 0.4-1.5 L 8112291777) VOL%O2 ART (test code = 14.0 % 15.0-23.0 L 2075346179) NA (test code = 137 mmol/L 135-145 7766423107) K+ (test code = 5.2 mmol/L 3.5-5.0 H 9213855671) AC CA IONZ (test code = 4.60 mg/dL 4.50-5.30 4558604312) GLUCOSE (test code = 306 mg/dL 70-110 H 6161038613) LACTIC ACID (test code 0.77 mmol/L 0.50-2.20 = 8249335797) Lab Interpretation Abnormal (test code = 77557-0) [facility]2022-01-02 12:28:29 Test Item Value Reference Range Interpretation Comments POCT GLU (test code = 362 mg/dL 70-110 H Notifi ed Provider 2436441644) Lab Interpretation (test Abnormal code = 23121-1) [facility] Metabolic Panel (NA, K, CL, CO2, Glucose, BUN, Creatinine, CA)2022-01-02 11:02:42 Test Item Value Reference Range Interpretation Comments NA (test code = 138 mmol/L 135-145 1148290574) K (test code = 5.3 mmol/L 3.5-5.0 H 8064838389) CL (test code = 102 mmol/L 98-108 0785955320) CO2 TOTAL (test code = 29 mmol/L 23-31 2339297726) AGAP (test code = 2-16 4158586871) BUN (test code = 17 mg/dL 7-23 0781645529) GLUCOSE (test code = 343 mg/dL 70-110 H 9139689846) CREATININE (test code = 0.81 mg/dL 0.50-1.04 2689317156) CALCIUM (test code = 8.1 mg/dL 8.6-10.6 L 7535723259) eGFR (test code = mL/min/1.73m2 0678404596) JENNIFFER (test code = JENNIFFER) Association of [...] tests). Lab Interpretation Abnormal (test code = 80365-1) [facility] with Coioacpvtyka2699-83-79 10:52:23 Test Item Value Reference Range Interpretation [...] RDW-SD (test code = 49.3 fL 39.0-49.9 53269-6) RDW-CV (test code = 14.7 % 12.0-15.5 788-0) PLT (test code = See_Comment [Automated 777-3) message] The system which generated this result transmit alden reference range : 166 - 358 10*3/ ?L. The reference range was not u sed to interpret th is result as normal/abnormal . MPV (test code = 9.8 fL 9.5-12.9 85368-0) NRBC/100 WBC (test See_Comment [Automat ed code = 5112990394) message] The system which generated this result transmit alden reference range : 0.0 - 10.0 /100 WBCs. The reference range was not used to interpret this result as normal/abnormal . NRBC x10^3 (test code <0.01 See_Comment [Auto mated = 1428832529) message] The system which generated this result transmit alden reference range : 10*3/?L. The reference range was not used to interpret this result as normal/abnormal . GRAN MAT (NEUT) % 90.3 % (test code = 770-8) IMM GRAN % (test code 1.00 % = 4906416737) LYMPH % (test code = 4.0 % 736-9) MONO % (test code = 4.0 % 5905-5) EOS % (test code = 0.3 % 713-8) BASO % (test code = 0.4 % 706-2) GRAN MAT x10^3(ANC) 13.28 10*3/uL 1.88-7.09 H (test code = 8665850632) IMM GRAN x10^3 (test 0.15 10*3/uL 0.00-0.06 H code = 7095560164) LYMPH x10^3 (test code 0.59 10*3/uL 1.32-3.29 L = 731-0) MONO x10^3 (test code 0.59 10*3/uL 0.33-0.92 = 742-7) EOS x10^3 (test code = 0.04 10*3/uL 0.03-0.39 711-2) BASO x10^3 (test code 0.06 10*3/uL 0.01-0.07 = 704-7) Lab Interpretation Abnormal (test code = 42727-7) [facility]G+COOX+NA+K+GLU+CA2+2022-01-02 10:20:11 Test Item Value Reference Range Interpretation Comments PH (test code = 2) 7.35-7.45 LL PCO2 (test code = See_Comment H [Automate d message] 5431809966) The system [employer] generated this result transmit alden reference range : 35 - 45 mmHg. The reference range was not used to interpret this result as normal/abnormal . PO2 (test code = See_Comment H [Automated message] 0944157260) The system [employer] generated this result transmit alden reference range : 80 - 100 mmHg. The reference range was not used to interpret this result as normal/abnormal . HCO3 (test code = See_Comment [Automate d message] 2551292755) The system [employer] generated this result transmit alden reference range : 22 - 26 mEq/L. The reference range was not used to interpret this result as normal/abnormal . BE (test code = See_Comment L [Automated message] 3520119183) The system [employer] generated this result transmit alden reference range : -3.0 - 3.0 mEq/ L. The reference r josselyn was not used to interpret this result as normal/abnormal . THB (test code = 10.9 g/dL 12.0-16.0 L 3380376090) %O2HB (test code = 97.4 % 94.0-99.0 5676404377) %COHB ART (test code = 0.3 % 0.0-1.5 2154994449) %METHB ART (test code = 0.1 % 0.4-1.5 L 2389658850) VOL%O2 ART (test code = 15.1 % 15.0-23.0 3629014436) NA (test code = 136 mmol/L 135-145 9346149979) K+ (test code = 5.5 mmol/L 3.5-5.0 H 9626421117) AC CA IONZ (test code = 4.70 mg/dL 4.50-5.30 8062724543) GLUCOSE (test code = 348 mg/dL 70-110 H 8511973472) Lab Interpretation Abnormal (test code = 04249-9) [facility] [id number] 03:01:55 Test Item Value Reference Interpretation Comments Range TROPONIN I (test 0.001 ng/mL See_Comment [Automated code = 4011245500) message] The system which generated this result [...] biotin. Lab Interpretation Normal (test code = 08818-2) [facility] S[facility]-WLO6749-89-10 02:58:58 Test Item Value Reference Range Interpretation Comments NT-proBNP (test code 183 pg/mL See_Comment H [Autom ated = 7708820786) message] The system which generated this result transmitted reference range : <=125. The reference range was not used to interpret this result as normal/abnormal . JENNIFFER (test code = JENNIFFER) Biotin has been reported to cause a negative bias, interpret results relative to patient's use of biotin. Lab Interpretation Abnormal (test code = 36967-5) [facility]. METABOLIC PANEL (46817)2022-01-02 02:50:56 Test Item Value Reference Range Interpretation Comments NA (test code = 137 mmol/L 135-145 9311388906) K (test code = 4.6 mmol/L 3.5-5.0 7487048877) CL (test code = 103 mmol/L 98-108 2453652666) CO2 TOTAL (test code = 26 mmol/L 23-31 0102191965) AGAP (test code = 2-16 7863702791) BUN (test code = 20 mg/dL 7-23 1088745551) GLUCOSE (test code = 310 mg/dL 70-110 H 8028974412) CREATININE (test code = 1.14 mg/dL 0.50-1.04 H 2006370510) TOTAL BILI (test code = 0.3 mg/dL 0.1-1.4 4304926172) CALCIUM (test code = 8.1 mg/dL 8.6-10.6 L 2705116403) T PROTEIN (test code = 6.6 g/dL 6.3-8.2 1627868743) ALBUMIN (test code = 3.8 g/dL 3.5-5.0 6510551734) ALK PHOS (test code = 143 U/L 34-122 H 3727573222) ALTv (test code = 46 U/L 5-35 H 1742-6) AST(SGOT) (test code = 81 U/L 13-40 H 5495998304) eGFR (test code = mL/min/1.73m2 2758160308) JENNIFFER (test code = JENNIFFER) Association of [...] tests). Lab Interpretation Abnormal (test code = 60505-8) [facility] WITH [id number] 02:39:55 Test Item Value Reference Range Interpretation Comments WBC (test code = See_Comment H [Automated 7090-2) message] The system which generated this result [...] RDW-SD (test code = 49.2 fL 39.0-49.9 76298-5) RDW-CV (test code = 14.8 % 12.0-15.5 788-0) PLT (test code = See_Comment [Automated 777-3) message] The system which generated this result transmit alden reference range : 166 - 358 10*3/ ?L. The reference range was not u sed to interpret th is result as normal/abnormal . MPV (test code = 10.0 fL 9.5-12.9 11303-7) NRBC/100 WBC (test See_Comment [Automat ed code = 2697646393) message] The system which generated this result transmit alden reference range : 0.0 - 10.0 /100 WBCs. The reference range was not used to interpret this result as normal/abnormal . NRBC x10^3 (test code <0.01 See_Comment [Auto mated = 3441937716) message] The system which generated this result transmit alden reference range : 10*3/?L. The reference range was not used to interpret this result as normal/abnormal . GRAN MAT (NEUT) % 85.4 % (test code = 770-8) IMM GRAN % (test code 0.60 % = 4837778771) LYMPH % (test code = 6.4 % 736-9) MONO % (test code = 5.5 % 5905-5) EOS % (test code = 1.6 % 713-8) BASO % (test code = 0.5 % 706-2) GRAN MAT x10^3(ANC) 10.20 10*3/uL 1.88-7.09 H (test code = 1389825340) IMM GRAN x10^3 (test 0.07 10*3/uL 0.00-0.06 H code = 3492945732) LYMPH x10^3 (test code 0.76 10*3/uL 1.32-3.29 L = 731-0) MONO x10^3 (test code 0.66 10*3/uL 0.33-0.92 = 742-7) EOS x10^3 (test code = 0.19 10*3/uL 0.03-0.39 711-2) BASO x10^3 (test code 0.06 10*3/uL 0.01-0.07 = 704-7) Lab Interpretation Abnormal (test code = 88507-4) [facility] [id number] 04:57:10 Test Item Value Reference Interpretation Comments Range TROPONIN I (test 0.001 ng/mL See_Comment [Automated code = 2675222170) message] The system which generated this result [...] biotin. Lab Interpretation Normal (test code = 89967-5) [facility] EHY-[id number] 04:53:49 Test Item Value Reference Range Interpretation Comments NT-proBNP (test code 79 pg/mL See_Comment [Autom ated = 4066535769) message] The system which generated this result transmitted reference range : <=125. The reference range was not used to interpret this result as normal/abnormal . JENNIFFER (test code = JENNIFFER) Biotin has been reported to cause a negative bias, interpret results relative to patient's use of biotin. Lab Interpretation Normal (test code = 62875-0) [facility]. METABOLIC PANEL (96891)2021-12-09 04:46:26 Test Item Value Reference Range Interpretation Comments NA (test code = 138 mmol/L 135-145 5701672906) K (test code = 4.4 mmol/L 3.5-5.0 9732739889) CL (test code = 95 mmol/L 98-108 L 3418375628) CO2 TOTAL (test code = 35 mmol/L 23-31 H 7025926403) AGAP (test code = 2-16 8173583861) BUN (test code = 16 mg/dL 7-23 1918308808) GLUCOSE (test code = 276 mg/dL 70-110 H 6427920172) CREATININE (test code = 0.89 mg/dL 0.50-1.04 8138409675) TOTAL BILI (test code = 0.5 mg/dL 0.1-1.8 8546112301) CALCIUM (test code = 9.1 mg/dL 8.6-10.6 5940707963) T PROTEIN (test code = 7.0 g/dL 6.3-8.2 9308737334) ALBUMIN (test code = 4.2 g/dL 3.5-5.0 2978522512) ALK PHOS (test code = 141 U/L 34-122 H 2873185307) ALTv (test code = 65 U/L 5-35 H 1742-6) AST(SGOT) (test code = 81 U/L 13-40 H 3789180305) eGFR (test code = mL/min/1.73m2 6907701822) JENNIFFER (test code = JENNIFFER) Association of [...] tests). Lab Interpretation Abnormal (test code = 53395-9) [facility] 04:46:26 Test Item Value Reference Range Interpretation Comments LIPASE (test code = 4316680495) 82 U/L 0-220 Lab Interpretation (test code = Normal 65050-9) [facility] WITH [id number] 04:27:44 Test Item Value Reference Range Interpretation [...] RDW-SD (test code = 46.9 fL 39.0-49.9 63419-5) RDW-CV (test code = 14.2 % 12.0-15.5 788-0) PLT (test code = See_Comment [Automated 777-3) message] The sy stem which generated this result transmitted reference range : 166 - 358 10*3/ ?L. The reference r josselyn was not used to interpret this result as normal/abnormal . MPV (test code = 9.0 fL 9.5-12.9 L 32686-0) NRBC/100 WBC (test See_Comment [Automat ed code = 2219853140) message] The system which generated this result transmitted reference range : 0.0 - 10.0 /100 WBCs. The refer ence range was not u sed to interpret th is result as normal/abnormal . NRBC x10^3 (test code <0.01 See_Comment [Auto mated = 4260826602) message] The s ystem which generated this result transmitted reference range : 10*3/?L. The reference range was not used to interpret this result as normal/abnormal . GRAN MAT (NEUT) % 79.4 % (test code = 770-8) IMM GRAN % (test code 0.60 % = 8124437450) LYMPH % (test code = 10.9 % 736-9) MONO % (test code = 5.7 % 5905-5) EOS % (test code = 2.7 % 713-8) BASO % (test code = 0.7 % 706-2) GRAN MAT x10^3(ANC) 7.19 10*3/uL 1.88-7.09 H (test code = 2467162321) IMM GRAN x10^3 (test 0.05 10*3/uL 0.00-0.06 code = 5597301564) LYMPH x10^3 (test code 0.99 10*3/uL 1.32-3.29 L = 731-0) MONO x10^3 (test code 0.52 10*3/uL 0.33-0.92 = 742-7) EOS x10^3 (test code = 0.24 10*3/uL 0.03-0.39 711-2) BASO x10^3 (test code 0.06 10*3/uL 0.01-0.07 = 704-7) Lab Interpretation Abnormal (test code = 66406-0) [facility] GLUCOSE (AUTOMATED)2021-09-23 17:25:54 Test Item Value Reference Range Interpretation Comments POCT GLU (test code = 9135991640) 234 mg/dL 70-110 H Lab Interpretation (test code = Abnormal 77231-0) [facility]2021-09-23 13:58:43 Test Item Value Reference Range Interpretation Comments POCT GLU (test code = 9034413205) 202 mg/dL 70-110 H Lab Interpretation (test code = Abnormal 64324-6) [facility] (NA, K, CL, CO2, GLUCOSE, BUN, CREATININE, CA)2021-09-23 11:51:27 Test Item Value Reference Range Interpretation Comments NA (test code = 139 mmol/L 135-145 3256559114) K (test code = 3.9 mmol/L 3.5-5.0 5776806384) CL (test code = 93 mmol/L 98-108 L 0874753016) CO2 TOTAL (test code = 40 mmol/L 23-31 H 7254913270) AGAP (test code = 2-16 3133668585) BUN (test code = 26 mg/dL 7-23 H 7759676663) GLUCOSE (test code = 223 mg/dL 70-110 H 8172297254) CREATININE (test code = 0.96 mg/dL 0.50-1.04 2690205227) CALCIUM (test code = 9.2 mg/dL 8.6-10.6 3212729620) eGFR (test code = mL/min/1.73m2 6821339701) JENNIFFER (test code = JENNIFFER) Association of [...] tests). Lab Interpretation Abnormal (test code = 92284-4) [facility] WITHOUT [id number] 10:53:54 Test Item Value Reference Range Interpretation Comments WBC (test code = 6690-2) See_Comment H [A utomated message] The system [employer] generated this result transmit alden reference range : 4.30 - 11.10 10*3/?L. The reference range was not used to interpret this result as normal/abnormal . RBC (test code = 789-8) See_Comment L [Au tomated message] The system [employer] generated this result transmit alden reference range [...] 777-3) See_Comment [Au tomated message] The system [employer] generated this result transmit alden reference range : 166 - 358 10*3/?L. The reference range was not used to interpret this result as normal/abnormal . MPV (test code = 9.2 fL 9.5-12.9 L 72797-3) RDW-CV (test code = 13.5 % 12.0-15.5 788-0) RDW-SD (test code = 44.3 fL 39.0-49.9 57284-1) NRBC x10^3 (test code = <0.01 See_Comment [Au tomated message] 3353040297) The system [employer] generated this result transmit alden reference range : 10*3/?L. The reference range was not used to interpret this result as normal/abnormal . NRBC/100 WBC (test code See_Comment [Au tomated message] = 9715591572) The system [employer] generated this result transmit alden reference range : 0.0 - 10.0 /100 WBC s. The reference r josselyn was not used to interpret this result as normal/abnormal . IPF % (test code = 3625429114) Lab Interpretation (test Abnormal code = 53467-5) [facility] GLUCOSE (AUTOMATED)2021-09-23 10:17:17 Test Item Value Reference Range Interpretation Comments POCT GLU (test code = 8517027474) 217 mg/dL 70-110 H Lab Interpretation (test code = Abnormal 94578-3) [facility] GLUCOSE (AUTOMATED)2021-09-23 05:44:27 Test Item Value Reference Range Interpretation Comments POCT GLU (test code = 9748537213) 338 mg/dL 70-110 H Lab Interpretation (test code = Abnormal 59460-2) [facility] GLUCOSE (AUTOMATED)2021-09-23 02:18:55 Test Item Value Reference Range Interpretation Comments POCT GLU (test code = 2051634317) 365 mg/dL 70-110 H Lab Interpretation (test code = Abnormal 40270-8) [facility] ([facility]E)2021-09-23 00:11:44 Test Item Value Reference Range Interpretation Comments LVOT stroke volume (test 68.50 cm3 code = 1406664422) EF(Teich) (test code = 68.30 % 2545577234) LVIDD (test code = 4.00 cm 0472594733) LVIDS (test code = 2.49 cm 6657618935) IVS (test code = 1.07 cm 5804106992) LVPWD (test code = 1.08 cm 3567489118) LVOT diameter (test code 1.92 cm = 9456210017) FS (test code = 38 % 0058944190) MV Peak E Marva (test code 83.4 cm/s = 4889692455) MV Peak A Marva (test code 136.1 cm/s = 6989987536) E/A ratio (test code = ratio 6587734445) E wave decelartion time 0.16 s (test code = 9491223771) MV E/e' septal (test 7.1 cm/s code = 4046443923) LA Volume Index (BP) 21.8 mL/m2 (test code = 1055339009) LA volume (BP) (test 43.7 mL code = 5855515625) LVOT peak marva (test code 137.5 cm/s = 2608160313) LVOT mn grad (test code mmHg = 7172862237) LA size (test code = 3.9 cm 1648251972) LAV(MOD-sp2) (test code 43.50 mL = 9784057059) LAV(MOD-sp4) (test code 42.50 mL = 0698204473) Tapse (test code = 1.88 cm 6149030803) AV LVOT peak gradient mmHg (test code = 4842571938) LVOT peak VTI (test code 23.5 cm = 1757691763) LV V1 mean (test code = 92.90 cm/s 6090079201) MV Prop V (test code = 46.60 cm/s 3520037116) Ao root annulus (test 3.1 cm code = 6712786629) Ao root diam (test code 3.10 cm = 5638052141) Aortic root (test code = 3.1 cm 6527274833) PW (test code = 1.08 cm 0.6-1.9 2996373956) EF - 2D (test code = 68.30 % 71646170) Interventricular Septum 1.07 cm Diastolic Thickness by 2D (test code = 5361859) Radiology Study observation (narrative) (test code = 47184-8) JENNIFFER (test code = JENNIFFER) ?Left?Ventricle: Normal [...] kg) 2.12 sq meters 118/66 96 [facility] GLUCOSE (AUTOMATED)2021-09-22 22:23:31 Test Item Value Reference Range Interpretation Comments POCT GLU (test code = 4595202162) 389 mg/dL 70-110 H Lab Interpretation (test code = Abnormal 98677-7) [id number] 21:48:25 Test Item Value Reference Range Interpretation Comments SPUTUM CULTURE (test Specimen cellular code = 622-1) elements do not represent lower respiratory tract. Specimen rejected for routine bacterial culture. Suggest reorder and recollection. [facility] GLUCOSE (AUTOMATED)2021-09-22 20:03:02 Test Item Value Reference Range Interpretation Comments POCT GLU (test code = 6379665229) 365 mg/dL 70-110 H Lab Interpretation (test code = Abnormal 63168-4) [facility] GLUCOSE (AUTOMATED)2021-09-22 18:09:08 Test Item Value Reference Range Interpretation Comments POCT GLU (test code = 1593485657) 361 mg/dL 70-110 H Lab Interpretation (test code = Abnormal 33817-1) [facility] GLUCOSE (AUTOMATED)2021-09-22 13:24:25 Test Item Value Reference Range Interpretation Comments POCT GLU (test code = 7271029159) 394 mg/dL 70-110 H Lab Interpretation (test code = Abnormal 63251-9) [facility] + LACTIC [id number] 13:21:48 Test Item Value Reference Range Interpretation Comments PH (test code = 2) 7.35-7.45 PCO2 (test code = See_Comment H [Automate d 4309106886) message] The sy stem which generated this result transmitted reference range : 35 - 45 mmHg. The reference range was not used to interpret this result as normal/abnormal . PO2 (test code = See_Comment L [Automated 7230595133) message] The sy stem which generated this result transmitted reference range : 80 - 100 mmHg. The reference range was not used to interpret this result as normal/abnormal . HCO3 (test code = See_Comment H [Automate d 4872913631) message] The sy stem which generated this result transmitted reference range : 22 - 26 mEq/L. The reference range was not used to interpret this result as normal/abnormal . BE (test code = See_Comment H [Automated 9312475827) message] The sy stem which generated this result transmitted reference range : -3.0 - 3.0 mEq/ L. The reference r josselyn was not used to interpret this result as normal/abnormal . THB (test code = 11.0 g/dL 12.0-16.0 L 8430049162) %O2HB (test code = 92.4 % 94.0-99.0 L 2155948142) %COHB ART (test code = 0.3 % 0.0-1.5 3716965540) %METHB ART (test code = 0.3 % 0.4-1.5 L 7337610033) VOL%O2 ART (test code = 14.3 % 15.0-23.0 L 2210834820) NA (test code = 138 mmol/L 135-145 4475843635) K+ (test code = 4.7 mmol/L 3.5-5.0 9374690626) AC CA IONZ (test code = 4.70 mg/dL 4.50-5.30 8555815473) GLUCOSE (test code = 401 mg/dL 70-110 H 6968671917) LACTIC ACID (test code 1.76 mmol/L 0.50-2.20 = 7294494012) Lab Interpretation Abnormal (test code = 70679-1) [facility] Metabolic Panel (NA, K, CL, CO2, Glucose, BUN, Creatinine, CA)2021-09-22 13:08:40 Test Item Value Reference Range Interpretation Comments NA (test code = 139 mmol/L 135-145 4088147655) K (test code = 4.9 mmol/L 3.5-5.0 0511406683) CL (test code = 93 mmol/L 98-108 L 9865809260) CO2 TOTAL (test code = 38 mmol/L 23-31 H 3707357294) AGAP (test code = 2-16 0644646323) BUN (test code = 19 mg/dL 7-23 8291202132) GLUCOSE (test code = 393 mg/dL 70-110 H 1030943187) CREATININE (test code = 0.89 mg/dL 0.50-1.04 0258275283) CALCIUM (test code = 8.9 mg/dL 8.6-10.6 6643535546) eGFR (test code = mL/min/1.73m2 1104483380) JENNIFFER (test code = JENNIFFER) Association of [...] tests). Lab Interpretation Abnormal (test code = 17972-3) [facility] Hospital[facility]esium [id number] 13:00:02 Test Item Value Reference Range Interpretation Comments MAGNESIUM (test code = 8907475079) 2.1 mg/dL 1.7-2.4 Lab Interpretation (test code = Normal 99970-7) [facility] HospitalPhosphorus [id number] 13:00:02 Test Item Value Reference Range Interpretation Comments PHOSPHORUS (test code = 2579595277) 3.3 mg/dL 2.5-5.0 Lab Interpretation (test code = Normal 53320-9) [facility] Hospital[facility] Function Panel (ALB, T.PRO, BILI T, BU/BC, ALT, AST, ALK, PHOS)2021-09-22 13:00:02 Test Item Value Reference Range Interpretation Comments TOTAL BILI (test code = 3987932773) 0.7 mg/dL 0.1-1.1 BILI UNCON (test code = 6938006630) 0.1 mg/dL 0.1-1.1 BILI CONJ (test code = 2396871054) 0.0 mg/dL 0.0-0.3 T PROTEIN (test code = 1504001488) 8.1 g/dL 6.3-8.2 ALBUMIN (test code = 5987458400) 4.2 g/dL 3.5-5.0 ALK PHOS (test code = 6446921314) 145 U/L 34-122 H ALTv (test code = 1742-6) 34 U/L 5-35 AST(SGOT) (test code = 6223485972) 46 U/L 13-40 H Lab Interpretation (test code = Abnormal 71456-9) [facility] HospitalProthrombin Time / [id number] 12:42:02 Test Item Value Reference Range Interpretation Comments PROTIME PATIENT (test See_Comment [Auto mated message] code = 5964-2) The system ich generated this result transmitted ref erence range: 10.1 - 1 2.6 Seconds. The re ference range was not u sed to interpret this result as normal/abnor mal. INR (test code = 6301-6) Nor mal INR <1.1; Warfarin Therap eutic range 2.0 to 3. 0 or 2.5 to 3.5, dep ending upon the indica tions. Lab Interpretation (test Normal code = 29975-4) [facility] HospitalCBC with [id number] 12:35:41 Test Item Value Reference Range Interpretation [...] RDW-SD (test code = 45.0 fL 39.0-49.9 95785-9) RDW-CV (test code = 13.7 % 12.0-15.5 788-0) PLT (test code = See_Comment [Automated 777-3) message] The sy stem which generated this result transmitted reference range : 166 - 358 10*3/ ?L. The reference r josselyn was not used to interpret this result as normal/abnormal . MPV (test code = 9.0 fL 9.5-12.9 L 93380-0) NRBC/100 WBC (test See_Comment [Automat ed code = 9349045001) message] The system which generated this result transmitted reference range : 0.0 - 10.0 /100 WBCs. The refer ence range was not u sed to interpret th is result as normal/abnormal . NRBC x10^3 (test code <0.01 See_Comment [Auto mated = 5401456686) message] The s ystem which generated this result transmitted reference range : 10*3/?L. The reference range was not used to interpret this result as normal/abnormal . GRAN MAT (NEUT) % 93.7 % (test code = 770-8) IMM GRAN % (test code 0.90 % = 6799563309) LYMPH % (test code = 3.2 % 736-9) MONO % (test code = 1.1 % 5905-5) EOS % (test code = 0.5 % 713-8) BASO % (test code = 0.6 % 706-2) GRAN MAT x10^3(ANC) 9.27 10*3/uL 1.88-7.09 H (test code = 3157805518) IMM GRAN x10^3 (test 0.09 10*3/uL 0.00-0.06 H code = 3232094057) LYMPH x10^3 (test code 0.32 10*3/uL 1.32-3.29 L = 731-0) MONO x10^3 (test code 0.11 10*3/uL 0.33-0.92 L = 742-7) EOS x10^3 (test code = 0.05 10*3/uL 0.03-0.39 711-2) BASO x10^3 (test code 0.06 10*3/uL 0.01-0.07 = 704-7) Lab Interpretation Abnormal (test code = 97516-2) [facility] HospitalGLYCOSYLATED HEMOGLOBIN (A1C)2021-09-22 12:16:03 Test Item Value Reference Range Interpretation Comments HGB A1C (test code = 6.4 % 4.0-5.7 H 4548-4) JENNIFFER (test code = JENNIFFER) Reference RangesNormal: <5.7%Prediabetes: 5.7 - 6.4%Diabetes: > 6.5% Lab Interpretation (test Abnormal code = 64772-2) [facility] HospitalTROPONIN [id number] 07:25:36 Test Item Value Reference Interpretation Comments Range TROPONIN I (test <0.012 See_Comment [Automated code = 0937298918) message] The system which generated this result [...] biotin. Lab Interpretation Normal (test code = 14318-9) [facility] HospitalN-TERMINAL [id number] 07:21:56 Test Item Value Reference Range Interpretation Comments NT-proBNP (test code 127 pg/mL See_Comment H [Autom ated = 9032485182) message] The system which generated this result transmitted reference range : <=125. The reference range was not used to interpret this result as normal/abnormal . JENNIFFER (test code = JENNIFFER) Biotin has been reported to cause a negative bias, interpret results relative to patient's use of biotin. Lab Interpretation Abnormal (test code = 64788-3) [facility] HospitalCOMP. METABOLIC PANEL (29887)2021-09-22 07:01:13 Test Item Value Reference Range Interpretation Comments NA (test code = 137 mmol/L 135-145 7952790335) K (test code = 4.9 mmol/L 3.5-5.0 2338312277) CL (test code = 96 mmol/L 98-108 L 8468301716) CO2 TOTAL (test code = 36 mmol/L 23-31 H 4771988063) AGAP (test code = 2-16 3384965504) BUN (test code = 18 mg/dL 7-23 0037747385) GLUCOSE (test code = 298 mg/dL 70-110 H 9788595475) CREATININE (test code = 0.73 mg/dL 0.50-1.04 9568977452) TOTAL BILI (test code = 0.6 mg/dL 0.1-1.6 8415638540) CALCIUM (test code = 8.5 mg/dL 8.6-10.6 L 1755184240) T PROTEIN (test code = 7.1 g/dL 6.3-8.2 9344088363) ALBUMIN (test code = 4.0 g/dL 3.5-5.0 9396868000) ALK PHOS (test code = 132 U/L 34-122 H 6533199079) ALTv (test code = 31 U/L 535 1742-6) AST(SGOT) (test code = 51 U/L 13-40 H 0753997161) eGFR (test code = mL/min/1.73m2 2461585363) JENNIFFER (test code = JENNIFFER) Association of [...] tests). Lab Interpretation Abnormal (test code = 12799-9) [facility] HospitalACTIVATED PARTIAL THRMPLAS [id number] 06:54:12 Test Item Value Reference Range Interpretation Comments APTT Patient (test See_Comment [Automat ed code = 3173-2) message] The system which generated this result transmitted reference range : 23 - 38 Seconds . The reference range was not used to interpr et this result as normal/abnormal . JENNIFFER (test code = JENNIFFER) The [facility] patient population mean normal value for aPTT is 30 seconds. Lab Interpretation Normal (test code = 29878-2) [facility] HospitalPROTHROMBIN TIME / [id number] 06:52:12 Test Item Value Reference Range Interpretation [...] tions. Lab Interpretation (test Normal code = 61394-6) [facility] WITH [id number] 06:44:31 Test Item Value Reference Range Interpretation Comments WBC (test code = See_Comment [Automated 0990-2) message] The sy stem which generated this result transmitted reference range : 4.30 - 11.10 10*3/?L. The reference range was not used to interpret this result as normal/abnormal . RBC (test code = See_Comment L [Automated 809-8) message] The sy stem which generated this [...] RDW-SD (test code = 47.3 fL 39.0-49.9 30369-7) RDW-CV (test code = 13.8 % 12.0-15.5 788-0) PLT (test code = See_Comment [Automated 777-3) message] The sy stem which generated this result transmitted reference range : 166 - 358 10*3/ ?L. The reference r josselyn was not used to interpret this result as normal/abnormal . MPV (test code = 8.8 fL 9.5-12.9 L 64442-8) NRBC/100 WBC (test See_Comment [Automat ed code = 2103521275) message] The system which generated this result transmitted reference range : 0.0 - 10.0 /100 WBCs. The refer ence range was not u sed to interpret th is result as normal/abnormal . NRBC x10^3 (test code <0.01 See_Comment [Auto mated = 2237389210) message] The s ystem which generated this result transmitted reference range : 10*3/?L. The reference range was not used to interpret this result as normal/abnormal . GRAN MAT (NEUT) % 82.4 % (test code = 770-8) IMM GRAN % (test code 0.80 % = 8443469371) LYMPH % (test code = 8.0 % 736-9) MONO % (test code = 5.1 % 5905-5) EOS % (test code = 2.9 % 713-8) BASO % (test code = 0.8 % 706-2) GRAN MAT x10^3(ANC) 6.26 10*3/uL 1.88-7.09 (test code = 2337186481) IMM GRAN x10^3 (test 0.06 10*3/uL 0.00-0.06 code = 1381151544) LYMPH x10^3 (test code 0.61 10*3/uL 1.32-3.29 L = 731-0) MONO x10^3 (test code 0.39 10*3/uL 0.33-0.92 = 742-7) EOS x10^3 (test code = 0.22 10*3/uL 0.03-0.39 711-2) BASO x10^3 (test code 0.06 10*3/uL 0.01-0.07 = 704-7) Lab Interpretation Abnormal (test code = 40675-0) [facility]
[2022-11-22] MEDS ORDERED: IPRATROPIUM BROM 0.5MG/2.5ML ONE (15:38)
[2022-11-22] MEDS ORDERED: ALBUTEROL 2.5 MG/3 ML NEB SOL ONE (15:38)
[2022-11-22] MEDS ORDERED: ONDANSETRON 4 MG/2 ML VIAL ONE (16:02)
[2022-11-22] MEDS ORDERED: MAGNES/ALUMIN/SIMET 30ML UCUP ONE (16:02)
[2022-11-22] MEDS ORDERED: LIDOCAINE VISCOUS 2% SOLN 15 ML UDC ONE (16:03)
[2022-11-22 16:07] LABS: Arterial Blood Carboxyhemoglob 1.6 % (0-1.5); Blood Gas Oxyhemoglobin 91.1 % (94-97); Blood O2 Saturation 93.8 % (92-98.5)
[2022-11-22 16:11] LABS: Absolute Lymphocytes (CBC) 0.4 K/uL (0.7-4.9); Hematocrit 35.2 % (36.0-45.0); Lymphocytes % 2.5 % (15.3-44.8); MCV 88.2 fL (80-100); MPV 7.1 fL (7.6-11.3); RBC Red Blood Cell Count 3.99 M/uL (3.86-4.86)
[2022-11-22 16:19] LABS: Protime INR 0.94
--- NOTE | 2022-11-22 16:19 | RAD REPORT ---
EXAM DESCRIPTION: RAD - Chest Single View - 11/22/2022 4:09 pm CLINICAL HISTORY: COUGH COMPARISON: Chest Single View dated 11/10/2022; Chest Single View dated 10/21/2022; Chest Single View dated 10/19/2022; Chest Single View dated 10/18/2022; Thorax Wo Con dated 09/27/2022 FINDINGS: Lines: Tracheostomy Lungs: Basilar airspace disease which is increased from prior . Calcified left mid lung nodules. Pleural: Difficult to exclude small effusions. Cardiac: Similar cardiomegaly. Mediastinum: Within normal limits. Bones: No acute fractures. Other: None IMPRESSION: Basilar airspace disease which could reflect pneumonia or pneumonitis, possibly secondar y to aspiration.
[2022-11-22 16:27] LABS: Albumin 3.4 g/dL (3.4-5.0); Bilirubin Total 0.3 mg/dL (0.2-1.0); Potassium 4.2 mEq/L (3.5-5.1); Protein, Total 7.5 g/dL (6.4-8.2)
[2022-11-22] MEDS ORDERED: NA CHLORIDE 0.9% 500 ML ONE (17:11)
[2022-11-22] MEDS ORDERED: NA CHLORIDE 0.9% 100 ML ONE (17:11)
[2022-11-22] MEDS ORDERED: HYDROCODONE/APAP 10/325 TAB ONE (17:11)
[2022-11-22] MEDS ORDERED: CEFEPIME 2 GM VIAL ONE (17:11)
[2022-11-22 17:25] LABS: Specific Gravity 1.012 (1.005-1.030); Urine Bilirubin NEGATIVE (Negative); Urine Blood Negative (Negative); Urine Clarity Clear (Clear); Urine Color Light-Yellow (Yellow); Urine Glucose 2+ (Negative); Urine Protein NEGATIVE (Negative); Urine Urobilinogen Normal (Normal); Urine pH 7.5 (5.0-7.0)
--- NOTE | 2022-11-22 17:50 | RAD REPORT ---
EXAM DESCRIPTION: CT - Chest For Pe Angio - 11/22/2022 5:42 pm CLINICAL HISTORY: COUGH COMPARISON: Thorax Wo Con dated 09/27/2022; Chest For Pe Angio dated 09/10/2022; Thorax Wo Con dated ; Thorax Wo Con dated 07/04/2021; Chest Single View dated 11/22/2022 TECHNIQUE: Dynamically enhanced axial 3 mm thick images of the chest were obtained during administra tion of <100> mL Isovue 370 IV contrast. Coronal and oblique reconstruction images were generated and reviewed. Exam utilizes a protocol for optimal evaluation of pulmonary arterial tree. Maximum intensity projections 3D imaging was utilized All CT scans are performed using dose optimization technique as appropriate and may include automated exposure control or mA/KV adjustment according to patient size. FINDINGS: Chest Wall: No suspicious thyroid nodules or pathologic lymphadenopathy. Tracheostomy. Lungs: Partial collapse of the right middle lobe chronic. Mild left basilar atelectasis. Emphysema. N o acute process otherwise identified. Pleura: No significant effusions or pneumothorax. Mediastinum/janae: No pathologic lymphadenopathy. Pulmonary arteries/Aorta: No filling defect identified. No aortic aneurysm. Enlarged main pulmonary a rtery which could indicate pulmonary artery hypertension. Heart: No significant pericardial effusion. Normal heart size. Upper abdomen: No acute abnormality. Bones: No acute abnormality. IMPRESSION: Negative for pulmonary embolism. Chronic right middle lobe atelectasis and mild left bas ilar atelectasis. Otherwise, no acute findings identified.
--- NOTE | 2022-11-22 18:02 | RAD REPORT ---
EXAM DESCRIPTION: CTAbdomen Pelvis W Contrast - 11/22/2022 5:42 pm CLINICAL HISTORY: ABD PAIN COMPARISON: No comparisons TECHNIQUE: CT of the abdomen and pelvis was performed. All CT scans are performed using dose optimization technique as appropriate and may include automated exposure control or mA/KV adjustment according to patient size. FINDINGS: Lower chest: Reference same-day chest CT. Liver: No acute abnormality or suspicious lesions. Biliary: No biliary ductal dilatation. Cholecystectomy Stomach: No significant focal abnormality. Duodenum: No significant focal abnormality. Pancreas: No significant abnormality. Spleen: No significant abnormality. Adrenal: No suspicious lesions. Kidney/ureter: No hydronephrosis. No renal calculi. Retroperitoneum: No retroperitoneal adenopathy. Vascular: No aneurysm. Atherosclerosis . Bowel: No significant focal abnormality. Normal appendix . Peritoneum: No ascites or free air. Bladder: Grossly unremarkable. Reproductive: No adnexal masses. Hysterectomy Bones: No acute fracture. Multilevel degenerative changes are present in the spine. Other: n/a IMPRESSION: No acute intra-abdominal or pelvic finding. Normal appendix .
[2022-11-22] MEDS ORDERED: METHYLPREDNISOLONE 125 MG INJ ONE (18:12)
--- NOTE | 2022-11-22 18:12 | EDPHYS ---
Physician Documentation [facility] Name: Janie Erickson Age: 62 yrs Sex: Female : 1960 Arrival Date: 11/22/2022 Time: 14:59 Bed 18 Private MD: William Powell ED Physician Justin De La Fuente HPI: 11/22 15:34 This 62 yrs old Female presents to ER via Wheelchair with complaints of Breathing jr11 Difficulty, Nausea. 15:34 The patient has shortness of breath while walking . Onset: The symptoms/episode jr11 began/occurred 2 day(s) ago. Duration: The symptoms are continuous. The patient's shortness of breath has no apparent modifying factors. Severity of symptoms: At their worst the symptoms were moderate in the emergency department the symptoms are worse. Patient is a 62-year-old female that is trach and vent dependent here with worsening shortness of breath over the last 2 days and generalized abdominal pain. Patient states that generalized abdominal pain has no modifying factors currently mild to moderate no vomiting bowel movements have been normal. Patient also has a history of COPD CHF diabetes hiatal hernia and a double growing hernia. Patient states she is been taking all her medications as prescribed, last breathing treatment was 1 hour ago. No fever.. Historical: - Allergies: 15:09 Sulfa (Sulfonamide Antibiotics); iw 15:09 Ultram; iw 15:09 Robaxin; iw - PMHx: 15:09 Chronic obstructive lung disease; Congestive heart failure; diabetes mellitus; iw - PSHx: 15:09 trach; iw ROS: 15:36 All other systems are negative. jr11 Exam: 15:36 Constitutional: no acute distress, trach Head/Face: Normocephalic, atraumatic. Eyes: jr11 Extra-ocular motions intact. Lids and lashes normal. Conjunctiva and sclera are non-icteric and not injected. Cornea within normal limits. Periorbital areas with no swelling, redness, or edema. ENT: trach site c/d/i Chest/axilla: Normal chest wall appearance and motion. Nontender with no deformity. No lesions are appreciated. Respiratory: diminished diffusely, no distress Abdomen/GI: diffusely tender, no peritonitis Skin: Warm, dry with normal turgor. Normal color with no rashes, no lesions, and no evidence of cellulitis. MS/ Extremity: Pulses equal, no cyanosis. Neurovascular intact. Full, normal range of motion. Vital Signs: 15:06 BP 155 / 90; Pulse 106; Resp 22; Temp 97.2; Pulse Ox 96% ; Weight 99.79 kg; Height 5 iw ft. 1 in. ; Pain 8/10; 16:20 BP 142 / 78; Pulse 102; Resp 13 S; Pulse Ox 94% ; kc6 17:31 BP 158 / 94; Pulse 101; Resp 16 S; Pulse Ox 98% ; kc6 15:06 Body Mass Index 41.57 (99.79 kg, 154.94 cm) iw 15:06 Pain Scale: Adult iw MDM: 15:14 Patient medically screened. [facility] 15:36 Differential diagnosis: Bronchitis CHF exacerbation, Chronic Obstructive Pulmonary jr11 Disease Pneumothorax pulmonary edema. Data reviewed: vital signs, nurses notes. Care significantly affected by the following chronic conditions: Diabetes, Hypertension, Congestive Heart Failure, Chronic Obstructive Pulmonary Disease, Obesity, vent dependent . 15:40 ED course: EKG interpreted by me shows very poor quality appears to be normal sinus jr11 rhythm with normal intervals, normal axis, no significant acute ST changes however poor anterior R wave progression, EKG nondiagnostic.. 18:10 ED course: CT to my image read no PE, no PNA, pt comfortable going home as a COPD jr11 exacerbation to return if worsening. Pt states gas 7.35 is good for her. LA elevated due to albuterol. . 11/22 15:23 Order name: Blood Culture Adult (2) [facility] 11/22 15:23 Order name: CBC with Diff; Complete Time: 16: 11/22 15:23 Order name: CMP; Complete Time: 16:35 11/22 15:23 Order name: Lactate w/ 2H reflex if indic.; Complete Time: 16:35 [facility] 11/22 15:23 Order name: Protime (+inr); Complete Time: 16: [facility] 11/22 15:23 Order name: Ptt, Activated; Complete Time: 16:11/22 15:23 Order name: Urinalysis w/ reflexes; Complete Time: 17:30 11/22 15:23 Order name: ABG; Complete Time: 16: [facility] 11/22 15:23 Order name: COVID-19 SARS RT PCR; Complete Time: 17:30 [facility] 11/22 15:56 Order name: Glucose, Ancillary Testing; Complete Time: 16:21 EDMD 11/22 15:23 Order name: Chest Single View XRAY; Complete Time: 16:21 11/22 16:36 Order name: CT Chest For PE Angio; Complete Time: 17:58 11/22 16:36 Order name: CT Abd/Pelvis - IV Contrast Only; Complete Time: 18:06 11/22 15:23 Order name: EKG; Complete Time: 15:24 11/22 15:23 Order name: Accucheck; Complete Time: 15:51 11/22 15:23 Order name: Cardiac monitoring; Complete Time: 15:11/22 15:23 Order name: EKG - Nurse/Tech; Complete Time: 15:11/22 15:23 Order name: IV Saline Lock - Large Bore; Complete Time: 15:51 11/22 15:23 Order name: Labs collected and sent; Complete Time: 16:09 11/22 15:23 Order name: O2 Per Protocol; Complete Time: 15:11/22 15:23 Order name: O2 Sat Monitoring; Complete Time: 15:11/22 15:23 Order name: Vital Signs; Complete Time: 15:51 Administered Medications: 15:51 Drug: DuoNeb Nebulize (3:1) (2.5 mg - 0.5 mg) 3 ml Route: Nebulizer; 6 16:51 Follow up: Response: No adverse reaction; Wheezing diminished kc6 16:09 Drug: Ondansetron IVP 4 mg Route: IVP; Site: left antecubital; kc6 17:09 Follow up: Response: No adverse reaction; Nausea is decreased kc6 16:09 Drug: GI Cocktail without - (Maalox PO Suspension 30 ml, Lidocaine Mucous kc6 Membrane Liquid 2 % 15 ml) Route: PO; 17:09 Follow up: Response: No adverse reaction kc6 17:14 Drug: Cefepime IVPB 2 grams Route: IVPB; Rate: 200 ml/hr; Infused Over: 30 mins; Site: kc6 left antecubital; 17:45 Follow up: Response: No adverse reaction; IV Status: Completed infusion; IV Intake: kc6 100ml 17:14 Drug: NS 0.9% IV 500 ml Route: IV; Rate: bolus; Site: left antecubital; kc6 17:45 Follow up: Response: No adverse reaction; IV Status: Completed infusion; IV Intake: kc6 500ml 17:14 Drug: [place] PO 10 mg-325 mg 1 tabs Route: PO; kc6 17:45 Follow up: Response: No adverse reaction; Pain is decreased; RASS: Alert and Calm (0) kc6 18:11 Drug: MethylPrednisoLONE IVP 125 mg Route: IVP; Site: left antecubital; kc6 19:20 Follow up: Response: No adverse reaction kc6 Disposition Summary: 11/22/22 18:11 Discharge Ordered Location: Home [facility] Condition: Stable jr11 Diagnosis - COPD/ Chronic obstructive pulmonary disease with (acute) exacerbation jr11 Followup: jr11 - With: Private Physician - When: 1 - 2 days - Reason: Recheck today's complaints Discharge Instructions: - Discharge Summary Sheet jr11 - Chronic Obstructive Pulmonary Disease [facility] Forms: - Medication Reconciliation Form jr11 - Thank You Letter jr11 - Antibiotic Education jr11 - Prescription Opioid Use jr11 Prescriptions: - Prednisone 20 mg Oral Tablet - take 3 tablets by ORAL route once daily for 5 days; 15 tablet; Refills: 0, jr11 Product Selection Permitted - Zithromax Z-Da 250 mg Oral Tablet - take 1 tablet by ORAL route as directed for 5 days Day 1 - take two (2) tablets jr one time. Day 2, 3, 4 , 5 take one (1) tablet once daily.; 6 tablet; Refills: 0, Product Selection Permitted Signatures: Dispatcher [employer] Christina Piedra, RN Justin Bruce MD MD jr11 Aby Cespedes RN RN kc6
--- NOTE | 2022-11-22 18:12 | ER ---
Nurse's Notes [facility] [place] Name: Janie Erickson Age: 62 yrs Sex: Female : 1960 Arrival Date: 11/22/2022 Time: 14:59 Bed 18 Private MD: William Powell Diagnosis: COPD/ Chronic obstructive pulmonary disease with (acute) exacerbation Presentation: 11/22 15:06 Chief complaint: Spouse and/or significant other states: diff breathing, stomach hurts iw .and nauseated X 2 days , no fever. coughing up thick mucous, pt has trache tube in place , pt has hx of COPD. Coronavirus screen: Client presents with at least one sign or symptom that may indicate coronavirus-19. Ebola Screen: Patient negative for fever greater than or equal to 101.5 degrees Fahrenheit, and additional compatible Ebola Virus Disease symptoms Patient denies exposure to infectious person. Patient denies travel to an Ebola-affected area in the 21 days before illness onset. No symptoms or risks identified at this time. Initial Sepsis Screen: Does the patient meet any 2 criteria? RR > 20 per min. HR > 90 bpm. Does the patient have a suspected source of infection? Yes: Productive cough/pneumonia. Risk Assessment: Do you want to hurt yourself or someone else? Patient reports no desire to harm self or others. Onset of symptoms was November 20, 2022. 15:06 Method Of Arrival: Wheelchair iw 15:06 Acuity: PAULINA 3 iw Historical: - Allergies: 15:09 Sulfa (Sulfonamide Antibiotics); iw 15:09 Ultram; iw 15:09 Robaxin; iw - PMHx: 15:09 Chronic obstructive lung disease; Congestive heart failure; diabetes mellitus; iw - PSHx: 15:09 trach; iw Screenin:24 [facility] ED Fall Risk Assessment (Adult) History of falling in the last 3 months, kc6 including since admission No falls in past 3 months (0 pts) Confusion or Disorientation No (0 pts) Intoxicated or Sedated No (0 pts) Impaired Gait No (0 pts) Mobility Assist Device Used No (0 pt) Altered Elimination No (0 pt) Score/Fall Risk Level 0 - 2 = Low Risk Oriented to surroundings, Maintained a safe environment, Educated pt \T\ family on fall prevention, incl call for assistance when getting out of bed, Assessed \T\ reinforced patient's understanding of fall precautions, Hourly rounding (assess needs \T\ fall precautionary measures) done. Abuse screen: Denies threats or abuse. Denies injuries from another. Nutritional screening: No deficits noted. Tuberculosis screening: No symptoms or risk factors identified. Assessment: 15:22 General: Appears in no apparent distress. uncomfortable, obese, well groomed, Behavior kc6 is calm, cooperative, appropriate for age. Pain: Denies pain. Neuro: Moore Agitation-Sedation Scale (RASS): 0 - Alert and Calm Level of Consciousness is awake, alert, obeys commands, Oriented to person, place, time, situation, Appropriate for age. Cardiovascular: Heart tones S1 S2 present Capillary refill < 3 seconds Rhythm is sinus tachycardia. Respiratory: Reports shortness of breath on exertion Airway is patent Trachea midline Respiratory effort is even, unlabored, Respiratory pattern is symmetrical, tachypnea home tracheostomy in place with 6L. Breath sounds with wheezes bilaterally. GI: Reports nausea. : No signs and/or symptoms were reported regarding the genitourinary system. EENT: No signs and/or symptoms were reported regarding the EENT system. Derm: No signs and/or symptoms reported regarding the dermatologic system. Skin is intact, Skin is dry, Skin is pale, Skin temperature is warm. Musculoskeletal: No signs and/or symptoms reported regarding the musculoskeletal system. Circulation, motion, and sensation intact. Capillary refill < 3 seconds, Range of motion: intact in all extremities. 16:20 Reassessment: Patient appears in no apparent distress at this time. No changes from kc6 previously documented assessment. Patient and/or family updated on plan of care and expected duration. Pain level reassessed. Patient is alert, oriented x 3, equal unlabored respirations, skin warm/dry/pink. 17:20 Reassessment: Patient appears in no apparent distress at this time. No changes from kc6 previously documented assessment. Patient and/or family updated on plan of care and expected duration. Pain level reassessed. Patient is alert, oriented x 3, equal unlabored respirations, skin warm/dry/pink. 18:20 Reassessment: Patient appears in no apparent distress at this time. No changes from kc6 previously documented assessment. Patient and/or family updated on plan of care and expected duration. Pain level reassessed. Patient is alert, oriented x 3, equal unlabored respirations, skin warm/dry/pink. Vital Signs: 15:06 BP 155 / 90; Pulse 106; Resp 22; Temp 97.2; Pulse Ox 96% ; Weight 99.79 kg; Height 5 iw ft. 1 in. ; Pain 8/10; 16:20 BP 142 / 78; Pulse 102; Resp 13 S; Pulse Ox 94% ; kc6 17:31 BP 158 / 94; Pulse 101; Resp 16 S; Pulse Ox 98% ; kc6 15:06 Body Mass Index 41.57 (99.79 kg, 154.94 cm) iw 15:06 Pain Scale: Adult iw ED Course: 15:02 Patient arrived in ED. mr 15:03 William Powell is Private Physician. mr 15:08 Justin De La Fuente MD is Attending Physician. [email or web address] 15:09 Triage completed. iw 15:10 Arm band placed on. iw 15:22 Aby Cespedes, OLIVE is Primary Nurse. kc6 15:24 Patient has correct armband on for positive identification. Placed in gown. Bed in low kc6 position. Call light in reach. Side rails up X2. Adult w/ patient. Client placed on continuous cardiac and pulse oximetry monitoring. NIBP monitoring applied. prescription eyeglass maker on. 15:54 Inserted saline lock: 20 gauge in left antecubital area, using aseptic technique. Blood kc6 collected. 16:10 Chest Single View XRAY In Process Unspecified. EDMS 17:43 CT Chest For PE Angio In Process Unspecified. EDMS 17:43 CT Abd/Pelvis - IV Contrast Only In Process Unspecified. EDMS 19:17 No provider procedures requiring assistance completed. IV discontinued, intact, kc6 bleeding controlled, No redness/swelling at site. Pressure dressing applied. Administered Medications: 15:51 Drug: DuoNeb Nebulize (3:1) (2.5 mg - 0.5 mg) 3 ml Route: Nebulizer; kc6 16:51 Follow up: Response: No adverse reaction; Wheezing diminished kc6 16:09 Drug: Ondansetron IVP 4 mg Route: IVP; Site: left antecubital; kc6 17:09 Follow up: Response: No adverse reaction; Nausea is decreased kc6 16:09 Drug: GI Cocktail without - (Maalox PO Suspension 30 ml, Lidocaine Mucous kc6 Membrane Liquid 2 % 15 ml) Route: PO; 17:09 Follow up: Response: No adverse reaction kc6 17:14 Drug: Cefepime IVPB 2 grams Route: IVPB; Rate: 200 ml/hr; Infused Over: 30 mins; Site: kc6 left antecubital; 17:45 Follow up: Response: No adverse reaction; IV Status: Completed infusion; IV Intake: kc6 100ml 17:14 Drug: NS 0.9% IV 500 ml Route: IV; Rate: bolus; Site: left antecubital; kc6 17:45 Follow up: Response: No adverse reaction; IV Status: Completed infusion; IV Intake: kc6 500ml 17:14 Drug: [place] PO 10 mg-325 mg 1 tabs Route: PO; kc6 17:45 Follow up: Response: No adverse reaction; Pain is decreased; RASS: Alert and Calm (0) kc6 18:11 Drug: MethylPrednisoLONE IVP 125 mg Route: IVP; Site: left antecubital; kc6 19:20 Follow up: Response: No adverse reaction kc6 Medication: 19:18 VIS not applicable for this client. kc6 Intake: 17:45 IV: 100ml; Total: 100ml. kc6 17:45 IV: 500ml; Total: 600ml. kc6 Outcome: 18:11 Discharge ordered by . kathy 19:18 Discharged to home via wheelchair, with significant other. kc6 19:18 Condition: improved 19:18 Discharge instructions given to patient, Instructed on discharge instructions, follow up and referral plans. medication usage, Demonstrated understanding of instructions, follow-up care, medications, Prescriptions given X 2. 19:20 Patient left the ED. kc6 Signatures: Dispatcher [employer] YUNIID Rea Castro Irene, RN Justin Bruce MD MD jrAby Cobb RN RN kcStas
[2022-11-22 19:34] VITALS: TEMP 97.2
[2022-11-22 19:45] VITALS: BP 158/94; O2SAT 98
--- NOTE | 2022-11-23 12:39 | EKG ---
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
== END 2022-11-22 19:20 | disposition home or self-care (01) ==
LOC: ER 14:59
DX: J44.1 Chronic obstructive pulmonary disease with (acute) exacerbation (principal); I50.9 Heart failure, unspecified; E11.9 Type 2 diabetes mellitus without complications; Z20.822 Contact with and (suspected) exposure to COVID-19; Z88.6 Allergy status to analgesic agent; Z88.8 Allergy status to other drugs, medicaments and biological substances
CPT/HCPCS: 93005; 87040 ×2; 85025; 36415; 85610; 82947; 83605; 85730; 81003; 80053; 71275; 74177; 71045; 82805; U0003; Q9967; J7613; J7644; J0692; J2930; J2405; J7040; 94640; 96365; 96375; 99285

== ENCOUNTER 2022-11-23 17:17 | Observation (INO) | payer OTHER ==
--- OUTSIDE RECORDS SUMMARY | 2022-11-23 17:53 | XMS REPORT | Continuity of Care Document ---
:1960 Author Organization [facility] t Address [address] [place] [address] [address] [place] [address] Care Team Providers Name Role Phone PCP, [...] Attending Clinician Sunshine Pelaez MD Attending Clinician [phone] VALERIANO PANTOJA Attending Clinician Unavailable Valeriano Pantoja MD Attending Clinician JONAS HERNANDEZ Attending Clinician Unavailable Layne Guallpa MD Attending Clinician SHHALA DIAZ Attending Clinician Unavailable Janis Valencia MD Attending Clinician [phone] Cory Cee MD Attending Clinician DUKE VELAZQUEZ Attending Clinician Unavailable [facility] Attending Clinician Patria Brewer LVN Attending Clinician ENE GIVENS Attending Clinician Unavailable ENE GIVENS Attending Clinician Unavailable Ene Givens MD Attending Clinician Doctor Unassigned, [place] Attending Clinician Unavailable LAYNE GUALLPA Attending Clinician [...] Expiration Date S anatoly ALEJANDRA YANETR FROM [id number] 2020 [facility] 00:00:00 [employer] [id number] 2022 OUT OF NETWORK 00:00:00 [facility] [id number] 2019 00:00:00 Problems Condition Condition Condition Status [...] urgency -11 it y of 00:00: [place] [facility] Chest pain Chest pain Disease Active U nivers 8 ity of 00:00: [place] [facility] Abdominal Abdominal Disease Active Uni vers pain pain 02-23 ity of 00:00: [place] [facility] Tracheomal Tracheomal Disease Active U nivers acia acia 02-22 ity of 00:00: [place] [facility] Tracheosto Tracheosto Disease Active U nivers my in my in [address] 00:00: [place] [facility] Dyspnea, Dyspnea, Disease Active Unive rs unspecifie unspecifie 7-29 it y of d type d type 00:00: [place] [facility] Acute Acute Disease Active [facility] respirator respirator 721 it y of [...] Unive rs 7-05 ity of 00:00: [place] [facility] Acute Acute Disease Active 2016-07 [...] [place] failure y failure 00 [facility] Branch Obesity Obesity Disease Active Univers (BMI (BMI 3-17 ity of 30-39.9) 30-39.9) 00:00: [place] 00 Medical Branch VAP VAP Disease Active [...] Active Univers 9-24 ity of 00:00: [place] [facility] Hypercapni Hypercapni Disease Active U nivers c c 9-01 ity of respirator respirator 00:00[place] failure, y failure, 00 Me dical chronic chronic Branch Respirator Respirator Disease Active U nivers y failure y failure 8-16 ity of with with 00:00: [place] hypoxia hypoxia Medical Branch COPD COPD Disease Active Univers exacerbati exacerbati 7-28 it y of on on 00:00: [place] [facility] Respirator Respirator Disease Active U nivers y failure y failure 7-04 ity of with with 00:00: [place] hypoxia hypoxia Medical and and Branch hypercapni hypercapni a a Respirator Respirator Disease Active U nivers y failure y failure 6-09 ity of 00:00: [place] [facility] Hypotensio Hypotensio Disease Active U nivers n n 3-10 ity of 00:00: [place] [facility] COPD COPD Disease Active Univers [...] ty to comments 02-22 chela ity of [place] adverse 00:00: swell [place] reaction 00 Medical [...] Date Stop Date Quantity Comments Source History SDMD University o f Alcohol Std Drinks [place] [facility] History [facility] o f Alcohol Binge [place] Medic al Branch History SDOH Social Unive rsity of Connections [facility] Med ical Together Branch History SDOH Social Unive rsity of Connections [facility] Medical Branch History SDOH Social Unive rsity of Connections [place] [facility] Membership Branch History SDMD Social Unive rsity of Connections [place] [facility] Meetings Branch History of tobacco Cigarette Smoker University of use [place] [facility] Exposure to 2022-08-30 2022-09-09 Not sure University of SARS-CoV-2 (event) 00:00:00 06:38:00 [place] [facility] History SDOH 2022-08-06 2022-08-06 1 University o f Alcohol Frequency 00:00:00 00:00:00 [place] M edical Branch History SDOH Social 2022-08-06 2022-08-06 5 Unive rsity of Connections Phone 00:00:00 00:00:00 [facility] edical Branch History SDOH Social 2022-08-06 2022-08-06 3 Unive rsity of Connections Living 00:00:00 00:00:00 [place] [facility] History SDOH 2022-08-06 2022-08-06 7 University o f Physical Activity 00:00:00 00:00:00 [facility] edical DPW Branch History SDMD 2022-08-06 2022-08-06 1 University o f Physical Activity 00:00:00 00:00:00 [facility] History SDMD 2022-08-06 2022-08-06 5 University o f Financial 00:00:00 00:00:00 [place] [facility] History SDOH Food 2022-08-06 2022-08-06 1 Univers ity of Worry 00:00:00 00:00:00 [place] [facility] History SDOH Food 2022-08-06 2022-08-06 1 Univers ity of Scarcity 00:00:00 00:00:00 [place] [facility] History SDMD 2022-08-06 2022-08-06 2 University o f Transport Med 00:00:00 00:00:00 [place] Medic al Branch History SDMD 2022-08-06 2022-08-06 2 University o f Transport Non-Med 00:00:00 00:00:00 [facility] Branch Cigarettes smoked 2022-08-05 2022-08-05 Univers ity of current (pack per 00:00:00 00:00:00 [facility] day) - Reported Branch Cigarette 2022-08-05 2022-08-05 University of pack-years 00:00:00 00:00:00 [facility] Tobacco use and 2022-08-05 2022-08-05 Smokeless Universit y of exposure 00:00:00 00:00:00 tobacco non-user [facility] dical Branch Alcohol intake 2022-08-05 2022-08-05 Current University of 00:00:00 00:00:00 non-drinker of [facility] alcohol Branch (finding) Tobacco Comment 2022-02-12 2022-02-12 Pt trached Universit y of 00:00:00 00:00:00 [facility] Sex Assigned At [birth year] Universit y of 00:00:00 00:00:00 [facility] Smoking Status Start Date Stop Date Source Ex-smoker 2022-08-05 00:00:00 2022-08-05 00:00:00 Universi ty [facility] Smokes tobacco daily 2022-02-12 00:00:00 Univers ity [facility] Medications Ordered Filled Start Stop Current Ordering Indication Dosage Frequency Signature Comments Components Source Medication Medication Date Date Medication? Clinician (SIG) Name Name predniSONE 2022- Yes [id number] 50mg Take 5 Univers 10 mg 09-10 tablets by ity of tablet 00:00: 05:59 mouth in [place] 00 :00 the Medical [facility] Branch for 4 days. methylpredn 2022- No 125mg 125 mg, U nivers isolone sod 09-09 Slow IV ity of succ 14:00: 13:20 Push, ONCE [place] (SOLU-MEDRO 00 :00 NOW, 1 Medica l L) dose, On Branch injection Wed 125 mg 09/09/22 at 0800, CT albuterol 2022- No 5mg 5 mg, Univer s (PROVENTIL) 09-09 Inhalation i ty of 2.5 mg /3 14:00: 13:13 , ONCE, 1 [place] mL (0.083 00 :00 dose, On Medica l %) Wed [place] nebulizer 09/09/22 at solution 5 0800, CT mg predniSONE 2022- No [id number] Take 3 Univers 10 mg 08-11 06 tablets by ity of tablet 00:00: 05:59 mouth [place] 00 :00 daily for Medical 3 days, Branch THEN 2 tablets daily for 3 days, THEN 1 tablet daily for 3 days. predniSONE 2022- No [id number] Take 3 Univers 10 mg -17 08-21 [...] Medica l base)/3 mL needed for [facility] nebulizer Wheezing. solution dulaglutide Yes Trulicity U nivers (TRULICITY) 1-16 3 mg/0.5 ity of 3 mg/0.5 mL 17:04: mL [place] PnIj 37 subcutaneo Medical pen Branch injector metFORMIN 2022-0 Yes 750mg Take 750 Uni vers 500 mg 24 1-16 mg by ity of hr tablet 17:04: mouth [place] 37 daily with Medical breakfast. Branch spironolact 0 Yes 25mg Take 25 mg Univers one 25 mg 1-16 by mouth ity of tablet 17:04: in the [place] [address] morning. Medical Branch Levothyroxi 0 Yes 50ug Take 50 Uni vers ne 100 mcg 1-16 mcg by ity of capsule 17:04: mouth. [place] [address] Medical Branch famotidine 0 Yes 40mg Take 40 mg U nivers 40 mg 1-16 by mouth ity of tablet 17:04: in the [place] 37 morning. Medical Branch magnesium 2022-0 Yes 500mg Take 500 Uni vers gluconate 1-16 mg by ity of (MAG-G 17:04: mouth at [place] ORAL) 37 bedtime. Medical Branch montelukast 0 [...] Medica l base)/3 mL needed for [facility] nebulizer Wheezing. solution dulaglutide Yes Trulicity U nivers (TRULICITY) 1-16 3 mg/0.5 ity of 3 mg/0.5 mL 17:04: mL [place] PnIj 37 subcutaneo Medical pen Branch injector metFORMIN 2022-0 Yes 750mg Take 750 Uni vers 500 mg 24 1-16 mg by ity of hr tablet 17:04: mouth [place] 37 daily with Medical breakfast. Branch spironolact 0 Yes 25mg Take 25 mg Univers one 25 mg 1-16 by mouth ity of tablet 17:04: in the [place] [address] morning. Medical Branch Levothyroxi 2022-0 Yes 50ug Take 50 Uni vers ne 100 mcg 1-16 mcg by ity of capsule 17:04: mouth. [place] [address] Medical Branch famotidine 0 Yes 40mg Take 40 mg U nivers 40 mg 1-16 by mouth ity of tablet 17:04: in the [place] 37 morning. Medical Branch magnesium 2022-0 Yes 500mg Take 500 Uni vers gluconate 1-16 mg by ity of (MAG-G 17:04: mouth at [place] ORAL) 37 bedtime. Medical Branch montelukast 2022-0 [...] as Medica l base)/3 [facility] Wheezing. solution dulaglutide 0 Yes Trulicity U nivers (TRULICITY) 1-16 3 mg/0.5 ity of 3 mg/0.5 mL 17:04: mL [place] PnIj 37 subcutaneo Medical pen Branch injector metFORMIN 0 Yes 750mg Take 750 Uni vers 500 mg 24 1-16 mg by ity of hr tablet 17:04: mouth [place] 37 daily with Medical breakfast. Branch spironolact 0 Yes 25mg Take 25 mg Univers one 25 mg 1-16 by mouth ity of tablet 17:04: in the [place] [address] morning. Medical Branch Levothyroxi 0 Yes 50ug Take 50 Uni vers ne 100 mcg 1-16 mcg by ity of capsule 17:04: mouth. [place] [address] Medical Branch famotidine 0 Yes 40mg Take 40 mg U nivers 40 mg 1-16 by mouth ity of tablet 17:04: in the [place] [address] morning. Medical Branch magnesium 0 Yes 500mg Take 500 Uni vers gluconate 1-16 mg by ity of (MAG-G 17:04: mouth at [place] ORAL) 37 bedtime. Medical Branch montelukast 0 [...] Nausea and Vomiting (N/V) hydrOXYzine 2023-0 Yes [id number] 10mg Take 1 Univers 10 mg 1-16 06 tablet by ity of tablet 00:00: mouth [place] 00 every 8 Medical (eight) Branch hours as needed for Anxiety. pregabalin 2023-0 Yes [id number] 300mg Take 1 Univers 300 mg 1-16 06 capsule by ity of capsule 00:00: mouth in [place] the Medical morning Branch and 1 capsule in the evening. hydrOXYzine 2023-0 Yes [id number] 10mg Take 1 Univers 10 mg 1-16 06 tablet by ity of tablet 00:00: mouth [place] 00 every 8 Medical (eight) Branch hours as needed for Anxiety. pregabalin 2023-0 Yes [id number] 300mg Take 1 Univers 300 mg 1-16 06 capsule by ity of capsule 00:00: mouth in [place] 00 the Medical morning Branch and 1 capsule in the evening. hydrOXYzine 2023-0 Yes [id number] 10mg Take 1 Univers 10 mg 1-16 06 tablet by ity of tablet 00:00: mouth [place] 00 every 8 Medical (eight) Branch hours as needed for Anxiety. pregabalin 2023-0 Yes [id number] 300mg Take 1 Univers 300 mg 16 [...] Until Discontinu ed, Routine sulfur 2022- No [id number] 5mL 5 mL, Unive rs hexafluorid 08-07 Intravenou i ty of e microsphr 17:00: 17:00 s, ONCE, 1 [place] (LUMASON) 00 :00 dose, On Medica l injection 5 Fri Branch mL 08/07/22 at 1100, Routine
count team member approving Restricted medication : STELLA IVORY [...] Until Discontinu ed, CT iopamidol 2022- No [id number] 90mL 90 mL, Univers (ISOVUE 08-06 Intravenou ity o f 370-500 mL) 16:45: 17:00 s, ONCE, 1 [place] injection 00 :00 dose, On Medica l 90 mL [facility] Branch 08/06/22 at 1100, Routine insulin [...] 00 :00 1 dose, On Medical injection [facility] Branch 15 Units 08/05/22 at 2330, CT pregabalin 0 Yes 300mg 300 mg, Uni vers (LYRICA) 08-06 Oral, BID, ity o f capsule 300 04:45: First dose [place] mg 00 on [facility] Medical 08/05/22 at Branch 2245, Until Discontinu ed, Routine QUEtiapine 0 Yes 75mg 75 mg, Unive rs (SEROQUEL) 08-06 Oral, QHS, ity of tablet 75 04:45: First dose [place] mg 00 on [facility] Medical 08/05/22 at Branch 2245, Until Discontinu ed, Routine acetaminoph Yes 1000mg 1,000 mg, Univers en 08-06 Oral, ity of (TYLENOL) 04:40: BIDPRN, [place] tablet 20 Starting Medical 1,000 mg on [facility] Branch 08/05/22 at 2240, Until Discontinu ed, Routine, Pain (scale 1-3) ceFEPIme 0 2022- No 1000mg 1,000 mg, U nivers (MAXIPIME) 08-05 IV ity of 1,000 mg in 22:00: 21:59 Piggyback, [place] NaCl 0.9% 00 :00 Q8H ABX, Medica [...] ity of (DUONEB) 07:30: , Q4H, [place] 0.5 mg-3 00 First dose Medic al mg(2.5 mg on Wed Branch base)/3 mL 08/05/22 at nebulizer 0130, solution 3 Until mL Discontinu ed, Routine methylPREDN 2022- No 40mg 40 mg, Uni vers ISolone sod 11 01-12 Intravenou i ty of succ 07:30: 15:21 s, Q8H, [place] (SOLU-MEDRO 00 :13 First dose Me dical [...] ity of (D50W) 07:27: Push, PRN, [place] injection 58 Starting Medica l 25 mL on Wed Branch 08/05/22 at 0127, Until Discontinu ed, CT, Blood Glucose < or = 70 mg/dL and patient is unable to swallow or has mental status changes. methylpredn 2021-07 Yes 125mg 125 mg, Un alexia isolone sod 11 Intravenou it y of succ 06:00: s, Q6H, [place] (SOLU-MEDRO 00 First dose Me dical L) on Wed Branch injection 06/05/22 125 mg at 0000, Until Discontinu ed, Routine iopamidol 2021-07- No [id number] 75mL 75 mL, Univers (ISOVUE 019 10-19 [...] 04/28/22 at 2315, STAT amoxicillin 2021-07 Yes [id number] 500mg Take 1 Univers -pot 0-05 tablet by ity of clavulanate 00:00: mouth [place] 500 mg 00 every 12 Medical 500-125 mg (twelve) Branc h tablet hours. amoxicillin 2021-07 Yes [id number] 500mg Take 1 Univers -pot 0-05 tablet by ity of clavulanate 00:00: mouth [place] 500 mg 00 every 12 Medical 500-125 mg (twelve) Branc h tablet hours. amoxicillin 2021-07 Yes [id number] 500mg Take 1 Univers -pot 0-05 tablet by ity of clavulanate 00:00: mouth [place] 500 mg 00 every 12 Medical 500-125 mg (twelve) Branc h tablet hours. amoxicillin 2021-07 Yes [id number] 500mg Take 1 Univers -pot 0-05 tablet by ity of clavulanate 00:00: mouth [place] 500 mg 00 every 12 Medical 500-125 mg (twelve) Branc h tablet hours. amoxicillin 2021-07- No [id number] 500mg Take 1 Univers -pot 0-05 01-16 [...] as Medica l base)/3 [facility] Wheezing. solution dulaglutide Yes Trulicity U nivers (TRULICITY) 8-05 3 mg/0.5 ity of 3 mg/0.5 mL 17:58: mL [place] [facility]Ij [facility] Branch injector metFORMIN 0 Yes [...] Medica l base)/3 mL needed for [facility] nebulizer Wheezing. solution dulaglutide Yes Trulicity U nivers (TRULICITY) 8-05 3 mg/0.5 ity of 3 mg/0.5 mL 17:58: mL [place] PnIj [facility] Branch injector metFORMIN 0 Yes [...] Medica l base)/3 mL needed for [facility] nebulizer Wheezing. solution dulaglutide 0 Yes Trulicity [...] as Medica l base)/3 mL [facility] Wheezing. solution dulaglutide Yes Trulicity [...] mcg by ity of capsule 17:58: mouth. [place] [address] Medical Branch HYDROcodone Yes 1{tbl} Take 1 [...] Medica l base)/3 mL needed for [facility] nebulizer Wheezing. solution dulaglutide Yes Trulicity U nivers (TRULICITY) 8-05 3 mg/0.5 ity of 3 mg/0.5 mL 17:58: mL [place] PnIj 14 subcutane Medical pen Branch injector metFORMIN 0 Yes 750mg Take 750 Uni vers 500 mg 24 8-05 mg by ity of hr tablet 17:58: mouth [place] [address] daily with Medical breakfast. Branch spironolact 0 [...] mcg by ity of capsule 17:58: mouth. [place] [address] Medical Branch HYDROcodone 0 Yes 1{tbl} Take [...] as Medica l base)/3 mL [facility] Wheezing. solution dulaglutide Yes Trulicity U nivers (TRULICITY) 8-05 3 mg/0.5 ity of 3 mg/0.5 mL 17:58: mL [place] PnIj 14 subcutaneo Medical pen Branch injector metFORMIN 0 Yes 750mg Take 750 Uni vers 500 mg 24 8-05 mg by ity of hr tablet 17:58: mouth [place] 14 daily with Medical breakfast. Branch spironolact Yes 25mg Take 25 mg Univers one 25 mg 8-05 by mouth ity of tablet 17:58: in the [place] 14 morning. Medical Branch ondansetron 0 Yes 8mg Take 8 mg U nivers 8 mg 8-05 by mouth ity of disintegrat 17:58: every 8 Compa as ing tablet 14 (eight) Medica l hours as Branch needed for Nausea and Vomiting (N/V). Levothyroxi Yes 50ug Take 50 Uni vers ne 100 mcg 8-05 mcg by ity of capsule 17:58: mouth. [place] 14 Medical Branch semaglutide 0 2022- No inject Uni vers (OZEMPIC) 8-05 08-05 under the ity of 0.25 mg or 15:36: 00:00 skin. [place] 0.5 mg(2 41 :00 Medical mg/1.5 mL) Branch PnIj famotidine 2021- No 40mg Take 40 mg Univers 40 mg 02-27 by mouth ity of tablet 15:36: 00:00 in the [place] 41 :00 morning. Medical Branch melatonin Yes [...] y of infusion 17:30: 18:42 mL, [place] 500 mL 00 :07 Intravenou Medical s, [...] time.
lactated 2021- No 1000mL at 999 [facility] ers ringers IV 02-24 mL/hr, ity of [...] ed, Routine simethicone Yes 80mg 80 mg, [facility] ers (GAS RELIEF 02-23 Oral, ity of (SIMETHICON 14:00: PC+HS, [place] E)) 00 First dose Medical chewable on [facility] tablet 80 02/23/22 at mg 0900, Until Discontinu ed, Routine metoprolol No 25mg 25 mg, [facility] ers succinate 02-23 Oral, BID, ity of [...] mg 32 :01 Starting Medical on [facility] 02/22/22 at 2058, Until [facility] [...] as mg 22 :05 Starting Medical on [place] Branch 02/22/22 at 1714, Until Wed02/24/22 at 0444, Routine, Anxiety pregabalin Yes 300mg 300 mg, Uni vers (LYRICA) 02-22 Oral, BID, ity o f capsule 300 19:30: First dose [place] mg 00 (after Medical last Branch modificati on) on [place] 02/22/22 at 1430, Until Discontinu ed, Routine trimethoben Yes 200mg 200 mg, Un alexia zamide 02-22 Intramuscu ity of (TIGAN) 17:45: lar, [place] injection 43 Q6HPRN, Medical 200 mg Starting Branch on [place] 02/22/22 at 1245, Until Discontinu ed, Routine, [...] 1 last Branch tablet modificati on) on [place] 02/22/22 at 1200, Until Discontinu ed, Routine acetaminoph 2021- No 650mg 650 mg, U nivers en 02-22 0803 Oral, ity of (TYLENOL) 14:35: 08:19 Q6HPRN, [place] tablet 650 20 :38 Starting Medic al mg on [place] Branch 02/22/22 at 0935, Until 02/25/22 at 0319, Routine, Pain (scale 1-3) ceFEPIme No 2000mg 2,000 mg, U nivers (MAXIPIME) 02-22 IV ity of 2,000 mg in 13:15: 14:10 Piggyback, [place] NaCl 0.9% 00 :00 ONCE, 1 Medical (NS) 50 mL dose, On Branc h MINI-BAG [place] 02/22/22 at 0815, Administer over 30 Minutes, 50 mL
Reas on for Anti-Infec tive: Documented Infection< br>Documen alden Infection Site: Respirator y
Du ration of Therapy: 10 days acetaminoph No 500mg 500 mg, U nivers en 02-22 Oral, ONCE ity of (TYLENOL) 10:30: 09:34 NOW, 1 [place] tablet 500 00 :00 dose, On Medic al mg [facility] 02/22/22 at 0530, Routine HYDROcodone 2021-2021- No [...] [place] mg 00 First dose Medical on [facility] 02/21/22 at 0900, Until Discontinu ed, Routine aspirin Yes 81mg 81 mg, Univers chewable 02-21 Oral, ity of tablet 81 14:00: DAILY, [place] mg 00 First dose Medical on [facility] 02/21/22 at 0900, Until Discontinu ed, Routine spironolact 2021- No 25mg 25 mg, Uni vers one 02-21 Oral, ity of (ALDACTONE) 14:00: 03:59 DAILY, Compa as tablet 25 00 :42 First dose Medi michel mg on [facility] 02/21/22 at 0900, Until Discontinu ed, Routine furosemide 2021- No 40mg 40 mg, Univ ers (LASIX) 02-21 0802 Oral, ity of tablet 40 14:00: 03:28 DAILY, [place] mg 00 :19 First dose Medical on [facility] 02/21/22 at 0900, Until Discontinu ed, Routine predniSONE No 40mg 40 mg, Univ ers (DELTASONE) 02-21 Oral, ity of tablet 40 14:00: 13:46 DAILY, [place] mg 00 :51 First dose Medical on [facility] 02/21/22 at 0900, Until Discontinu ed, Routine HYDROcodone 2021- No 1{tbl} 1 tablet, Univers -acetaminop 02-21 Oral, ity of hen (NORCO 12:00: 11:09 ONCE, 1 Compa as 5) 5-325 mg 00 :00 dose, On Medi michel tablet 1 [facility] tablet 02/21/22 at 0700, Routine albuterol [...] by ity of tablet 00:00: mouth in [place] [address] the Medical morning. Branch furosemide 2021-0 Yes 40mg Take 1 Unive rs 40 mg 7-27 tablet by ity of tablet 00:00: mouth in [place] [address] the Medical morning. Branch furosemide 2021-0 Yes 40mg Take 1 Unive rs 40 mg 7-27 tablet by ity of tablet 00:00: mouth in [place] [address] the Medical morning. Branch furosemide 2021-0 Yes 40mg Take 1 Unive rs 40 mg 7-27 tablet by ity of tablet 00:00: mouth in [place] [address] the Medical morning. Branch furosemide 2021-0 Yes 40mg Take 1 Unive rs 40 mg 7-27 tablet by ity of tablet 00:00: mouth in [place] 00 the Medical morning. Branch furosemide 2022-0 Yes 40mg Take 1 Unive rs 40 mg 7-27 tablet by ity of tablet 00:00: mouth in [place] 00 the Medical morning. Branch furosemide 2022-0 Yes 40mg Take 1 Unive rs 40 mg 7-27 tablet by ity of tablet 00:00: mouth in [place] 00 the Medical morning. Branch furosemide 2022-0 Yes 40mg Take 1 Unive rs 40 mg 7-27 tablet by ity of tablet 00:00: mouth in [place] 00 the Medical morning. Branch furosemide 2022-0 Yes 40mg Take 1 Unive rs 40 mg 7-27 tablet by ity of tablet 00:00: mouth in [place] 00 the Medical morning. Branch furosemide 2022-0 Yes 40mg Take 1 Unive rs 40 mg 7-27 tablet by ity of tablet 00:00: mouth in [place] 00 the Medical morning. Branch furosemide 2022-0 Yes 40mg Take 1 Unive rs 40 mg 7-27 tablet by ity of tablet 00:00: mouth in [place] 00 the Medical morning. Branch HYDROcodone 2021-0 [...] as Medica l base)/3 [facility] Wheezing. solution semaglutide 2021-0 Yes inject [...] Medica l base)/3 mL needed for [facility] nebulizer Wheezing. solution semaglutide Yes inject Univ [...] mouth ity of tablet 18:10: in the [place] [address] morning Medical and 25 mg Branch at [...] of 2,000 mg in 03:30: Piggyback, [place] NaCl 0.9% 00 Q12H ABX, Medic al (NS) 50 mL [facility] on Wed02/16/22 at 2230, Until Discontinu [...] ity of 2,000 mg in 15:30: 15:30 [place], [place] NaCl 0.9% 00 :00 ONCE, 1 [...] f (XYLOCAINE) 14:45: 22:45 , ONCE, [place] injection 5 00 :00 1 dose, On Me dical mL [facility] 02/16/22 at 0945, Routine NaCl 0.9% Yes 10mL 10 mL, Univer s (NS) 02-16 Slow IV ity of injection 14:36: Push, PRN, [place] 10 mL 37 Starting Medical on Wed [place] 02/16/22 at 0936, Until Discontinu ed, Routine, line maintenanc e furosemide 2021- No 40mg 40 mg, Univ ers (LASIX) 02-16 Oral, BID, ity o f tablet 40 01:00: 12:21 First dose [place] mg 00 :[facility] 02/15/22 at Branch 2000, Until Discontinu [...] D10W 10 % 2021- No at 30 [facility] s IV infusion 02-13 mL/hr, IV it y of 17:55: 22:35 Infusion, [place] 58 :45 TITRATE, Medical Starting Branch on [...] ity of XL (TOPROL 14:00: DAILY, [place] XL) tablet 00 First dose Med ical [...] First dose [place] mg 00 on [facility] Medical 02/12/22 at Branch 2100, Until Discontinu ed, Routine rosuvastati Yes 10mg 10 mg, Univ ers n (CRESTOR) 02-13 Oral, QHS, it y of tablet 10 02:00: First dose [place] mg 00 on [facility] 02/12/22 at Branch 2100, Until Discontinu ed, Routine pregabalin 2021- No 300mg 300 mg, Un alexia (LYRICA) 02-13 Oral, QHS, ity of capsule 300 02:00: 13:54 First dose [place] mg 00 :07 on [facility] 02/12/22 at Branch 2100, Until Discontinu ed, Routine furosemide 2021- No 20mg 20 mg, Univ ers (LASIX) 02-13 07-24 Slow IV ity of injection 01:00: 19:35 Push, [place] 20 mg 00 :20 Q12H, Medical First dose Branch on [facility] 02/12/22 at 2000, Until Discontinu ed, [...] Push, ity of (PF)) 21:36: Q6HPRN, [place] injection 4 19 Nausea and Me dical mg Vomiting Branch (N/V), Starting on [place] 02/12/22 at 1636
Do ses of ondansetro n 16 mg and above need to be administer ed via IV piggyback. For Dose >=24mg ECG monitoring is advisable.
ipratropium Yes 3mL 3 mL, Unive rs -albuteroL 02-12 Inhalation ity of (DUONEB) 19:00: , Q6H, [place] 0.5 mg-3 00 First dose Medic al mg(2.5 mg on [facility] Branch base)/3 mL 02/12/22 at nebulizer 1400, solution 3 Until mL Discontinu ed, Routine piperacilli 2021-2021- No 3.375g 3.375 g, Univers n-tazobacta 02-12 IV ity of m (ZOSYN) 15:30: 17:12 Piggyback, [place] 3.375 g in 00 :00 ONCE, 1 Medica l NaCl 0.9% dose, On Branch (NS) 50 mL [facility] MINI-BAG 02/12/22 at 1030, Administer over [...] ity of 1,000 mg in 09:15: 14:35 [place], [place] NaCl 0.9% 00 :41 Q24H ABX, Medic al (NS) 50 mL First dose [facility] MINI-BAG on [place] 02/12/22 at 0415, Until Discontinu ed, Administer over 30 Minutes, 50 mL
Reas on for Anti-Infec tive: Documented Infection< br>Documen alden Infection Site: Respirator y
Durat ion of Therapy: 7 days albuterol Yes 2.5mg 2.5 mg, Univ ers (PROVENTIL) 02-12 Inhalation it y of 2.5 mg /3 08:45: , Q4HPRN, Compa as mL (0.083 01 Starting Medica l %) on [facility] Branch nebulizer 02/12/22 at solution 0345, 2.5 mg Until Discontinu ed, Routine, Shortness of Breath, Wheezing NaCl 0.45% 2021- No 1000mL Univ ers (1/2NS) 02-12 ity of 1000 mL + 08:15: 22:29 [place] KCL 20 mEq 00 :30 [facility] Branch azithromyci 2021- No 500mg 500 [...] CT insulin 2021- No 10U 10 Units, [facility] ers regular 02-12 Slow IV ity of human 03:15: 04:13 Push, [place] (HUMULIN R) 00 :00 ONCE, 1 Medic al injection dose, On Branch 10 Units [facility] 02/11/22 at 2215, STAT iopamidol 2021- No [id number] 60mL 60 mL, Univers (ISOVUE 02-12 Intravenou ity o f 370-500 mL) 02:30: 02:30 s, ONCE, 1 [place] injection 00 :00 dose, On Medica l 60 mL Wed [place] 02/11/22 at 2145, Routine predniSONE 2021-0 Yes [id number] 50mg Take 1 Univers 50 mg 7-10 00 tablet by ity of tablet 00:00: mouth [place] 00 daily. Medical Branch aspirin 81 2021-0 Yes [id number] 81mg Take 1 Univers mg chewable 7-10 00 tablet by ity of tablet 00:00: mouth [place] 00 daily with Medical breakfast. Branch predniSONE 2021-0 Yes [id number] 50mg Take 1 Univers 50 mg 7-10 00 tablet by ity of tablet 00:00: mouth [place] 00 daily. Medical Branch aspirin 81 0 Yes [id number] 81mg Take 1 Univers mg chewable 7-10 00 tablet by ity of tablet 00:00: mouth [place] 00 daily with Medical breakfast. Branch aspirin 81 0 Yes [id number] 81mg Take 1 Univers mg chewable 7-10 00 tablet by ity of tablet 00:00: mouth [place] 00 daily with Medical breakfast. Branch aspirin 81 0 Yes [id number] 81mg Take 1 Univers mg chewable 7-10 00 tablet by ity of tablet 00:00: mouth [place] 00 daily with Medical breakfast. Branch aspirin 81 0 Yes [id number] 81mg Take 1 Univers mg chewable 7-10 00 tablet by ity of tablet 00:00: mouth [place] 00 daily with Medical breakfast. Branch aspirin 81 2021-0 Yes [id number] 81mg Take 1 Univers mg chewable 7-10 00 tablet by ity of tablet 00:00: mouth [place] 00 daily with Medical breakfast. Branch aspirin 81 2021-0 Yes [id number] 81mg Take 1 Univers mg chewable 7-10 00 tablet by ity of tablet 00:00: mouth [place] 00 daily with Medical breakfast. Branch aspirin 81 2021-0 Yes [id number] 81mg Take 1 Univers mg chewable 7-10 00 tablet by ity of tablet 00:00: mouth [place] 00 daily with Medical breakfast. Branch aspirin 81 2021-0 Yes [id number] 81mg Take 1 Univers mg chewable 7-10 00 tablet by ity of tablet 00:00: mouth [place] 00 daily with Medical breakfast. Branch aspirin 81 0 Yes [id number] 81mg Take 1 Univers mg chewable 7- 00 tablet by ity of tablet 00:00: mouth [place] 00 daily with Medical breakfast. Branch aspirin 81 Yes [id number] 81mg Take 1 Univers mg chewable 7-10 00 tablet by ity of tablet 00:00: mouth [place] 00 daily with Medical breakfast. Branch aspirin 81 Yes [id number] 81mg Take 1 Univers mg chewable 7-10 00 tablet by ity of tablet 00:00: mouth [place] 00 daily with Medical breakfast. Branch aspirin 81 0 Yes [id number] 81mg Take 1 Univers mg chewable 7- 00 tablet by ity of tablet 00:00: mouth [place] 00 daily with Medical breakfast. Branch predniSONE 2021- No [id number] 50mg Take 1 Univers 50 mg 7-02-17 00 tablet by ity of tablet 00:00: 00:00 mouth [place] 00 :00 daily. Medical Branch aspirin 81 2021- No [id number] 81mg Take 1 Univers mg chewable 7-01-31 tablet by it y of tablet 00:00: 00:00 mouth [place] 00 :00 daily with Medical breakfast. Branch predniSONE 2021- No [id number] 50mg Take 1 Univers 50 mg 02-01 [...] ity of tablet 11:48: 00:00 (two) [place] 08 :00 times Medical daily. Branch LORazepam [...] 2000, Until Discontinu ed, Routine metoprolol Yes [id number] 25mg Take 1 Univers succinate 01-31 00 tablet by ity o f XL 25 mg 24 00:00: mouth 2 Compa [place] hr tablet 00 (two) Medical times [place] daily. metoprolol 2021-0 Yes [id number] 25mg Take 1 Univers succinate 01-31 tablet by ity o f XL 25 mg 24 00:00: mouth 2 [place] hr tablet 00 (two) Medical times [place] daily. metoprolol 2021-0 Yes [id number] 25mg Take 1 Univers succinate 01-31 tablet by ity o f XL 25 mg 24 00:00: mouth 2 [place] hr tablet 00 (two) Medical times Branch daily. metoprolol Yes [id number] 25mg Take 1 Univers succinate 01-31 tablet by ity o f XL 25 mg 24 00:00: mouth 2 [place] hr tablet 00 (two) Medical times Branch daily. furosemide 2021- No [id number] 40mg Take 1 Univers 40 mg 01-31 00 tablet by ity of tablet 00:00: 04:59 mouth 2 [place] 00 :00 (two) Medical times Branch daily for 30 days. furosemide 2021- No [id number] 40mg Take 1 Univers 40 mg 01-31 tablet by ity of tablet 00:00: 04:59 mouth 2 [place] 00 :00 (two) Medical times Branch daily for 30 days. metoprolol 2021- No [id number] 25mg Take 1 Univers succinate 01-31 00 tablet by ity of XL 25 mg 24 00:00: 00:00 mouth 2 [place] hr tablet 00 :00 (two) Medical times Branch daily. furosemide 2021- No [id number] 40mg Take 1 Univers 40 mg 01-31 00 tablet by ity of tablet 00:00: 00:00 mouth 2 [place] 00 :00 (two) Medical times Branch daily for 30 days. metoprolol 2021- No [id number] 25mg Take 1 Univers succinate 01-31 00 tablet by ity of XL 25 mg 24 00:00: 00:00 mouth 2 [place] hr tablet 00 :00 (two) Medical times Branch daily for 30 days. acetaminoph Yes 650mg 650 mg, Un alexia en 01-30 Oral, ity of (TYLENOL) 19:27: Q6HPRN, [place] tablet 650 59 Starting Medic al mg on Wed Branch 01/30/22 at 1427, Until Discontinu ed, Routine, Pain (scale 1-3), Temp > 38.5 C methylPREDN 2021- No 40mg 40 mg, Uni vers ISolone sod 01-29 Intravenou i ty of succ 14:00: 18:37 s, DAILY, [place] (SOLU-MEDRO 00 :50 First dose Me dical L (PF)) on [place] Branch injection 01/29/22 at 40 mg 0900, Until Discontinu ed, 1 mL ceFEPIme 2021- No 2000mg 2,000 mg, U nivers (MAXIPIME) 01-29-08 IV ity of 2,000 mg in 07:15: 22:11 [place], [place] NaCl 0.9% 00 :39 Q8H ABX, Medica l (NS) 50 mL First dose [facility] MINI-BAG on [place] 01/29/22 at 0215, Until [...] ity of 2,000 mg in 23:45: 01:18 [place], [place] NaCl 0.9% 00 :00 ONCE, 1 Medical (NS) 50 mL dose, On [facility] h MINI-BAG Wed01/28/22 at 1845, Administer over 30 Minutes, 50 mL
[place] for Anti-Infec tive: Documented Infection< br>Documen alden Infection Site: Respirator y
Du ration of Therapy: 7 days propofoL IV Yes 5ug/kg/ 5-50 Uni vers infusion 7-06 min mcg/kg/min ity o f 22:46: ?112.5 kg [place] 21 (3.375-33. Medical 75 mL/hr, Branch rounded [...] 12 hours.
albuterol Yes 2.5mg 2.5 mg, [facility] ers (PROVENTIL) 01-28 Inhalation it y of [...] Routine LORazepam 2021- No .5mg 0.5 mg, [facility] ers (ATIVAN) 01-28- Slow IV ity of [...]
Do Not Refrigerat e.
sulfur 2021-2021- No [id number] 5mL 5 mL, [facility] ers hexafluorid 01-28 Intravenou i ty of e microsphr 15:45: 15:45 s, ONCE, 1 [place] (LUMASON) 00 :00 dose, On Medica l injection Wed01/28/22 Br anch mL at 1045, Routine
count team member approving Restricted medication : STELLA IVORY [...] 34 Starting Medi michel mg on Wed [place] 01/28/22 at 0204, Until Discontinu ed, Routine, [...] Routine ipratropium 2021- No 3mL 3 mL, [facility] ers -albuteroL 01-28 07-06 Inhalation it y [...] Medica l base)/3 mL needed for [facility] nebulizer Wheezing. solution spironolact Yes 25mg Take [...] of 3 mg/0.5 mL 23:08: mL [place] PnIj 39 subcutaneo Medical us pen Branch [...] Medica l base)/3 mL needed for [facility] nebulizer Wheezing. solution spironolact Yes 25mg Take [...] Medica l base)/3 mL needed for [facility] nebulizer Wheezing. solution spironolact Yes 25mg Take [...] Medica l base)/3 mL needed for [facility] nebulizer Wheezing. solution spironolact 0 Yes 25mg [...] times Medical daily. Branch ALPRAZolam 2021-0 Yes [id number] .5mg Take 1 Univers 0.5 mg 6-20 tablet by ity of tablet 00:00: mouth 3 [place] 00 (three) Medical times Branch daily. ALPRAZolam 2021-0 Yes [id number] .5mg Take 1 Univers 0.5 mg 6-20 tablet by ity of tablet 00:00: mouth 3 [place] 00 (three) Medical times Branch daily. ALPRAZolam 2021-0 Yes [id number] .5mg Take 1 Univers 0.5 mg 6-20 tablet by ity of tablet 00:00: mouth 3 [place] 00 (three) Medical times Branch daily. ALPRAZolam 2021-0 Yes [id number] .5mg Take 1 Univers 0.5 mg 6-20 tablet by ity of tablet 00:00: mouth 3 [place] 00 (three) Medical times Branch daily. ALPRAZolam 2021-0 2022- No [id number] .5mg Take 1 Univers 0.5 mg 6-20 [...] First dose [place] mg 00 :25 on [facility] 01/10/22 at Branch 1630, Until Discontinu ed, Routine acetaminoph Yes 650mg 650 mg, Un alexia en 01-09 Oral, ity of (TYLENOL) 22:42: Q6HPRN, [place] tablet 650 06 Starting Medic al mg on Wed [place] 01/09/22 at 1742, Until Discontinu ed, Routine, Pain (scale 1-3), Pain (scale 4-6) FENTanyl PF No 50ug 50 mcg, Un alexia (SUBLIMAZE 01-09 Slow IV ity o f (PF)) 14:15: 18:52 [place], [place] injection 00 :00 ONCE, 1 Medical 50 mcg dose, On Branch [facility] 01/09/22 at 0915, Routine propofoL IV Yes 5ug/kg/ 5-50 Uni vers infusion 01-09 min mcg/kg/min ity o f 14:02: ?104.3 kg [place] 51 (3.129-31. Medical 29 mL/hr, Branch rounded to 3.13-31.29 mL/hr), IV Infusion, at 3.13-31.29 mL/hr, TITRATE, Starting on Wed01/09/22 at 0902, Until Discontinu ed, Sedation-R ASS score (-2 to -3), Routine QUEtiapine Yes 50mg 50 mg, Unive rs (SEROQUEL) 01-09 Oral, BID, ity of tablet 50 01:00: First dose [place] mg 00 (after Medical last Branch modificati on) on [facility] 01/08/22 at 2000, Until Discontinu ed, Routine QUEtiapine No 25mg 25 mg, Univ ers (SEROQUEL) 01-08 Oral, ity of tablet 25 13:54: 14:00 ONCE, 1 [place] mg 00 :00 dose, On [facility] 01/08/22 at 0900, Routine acetylcyste 2022-0 [...] Push, ity of (HALDOL) 17:41: Q4HPRN, [place] injection 2 00 Starting Medi michel mg [...] 1,000 mg in 19:00: 22:16 Piggyback, [place] NaCl 0.9% 00 :00 Q8H ABX, 4 [...] Oral, ity of sodium 18:45: DAILY, [place] (SENOKOT-S) 00 First dose Me dical 8.6-50 [...] ity of 01:12: 18:02 ?104.3 kg [place] 34 :29 (3.129-31. Medical 29 mL/hr, Branch [...] doses, Medical mEq/100 mL First dose [facility] RTU IVPB 20 on [place] mEq 01/04/22 at 1000, Last dose on 01/04/22 at 1200, 100 mL insulin 2021- No 10U 10 Units, [facility] ers glargine 01-04 Subcutaneo ity of (LANTUS 14:00: 15:09 us, DAILY, Compa as U-100) 00 :45 First dose Medical injection (after Branch 10 Units last modificati on) on [place] 01/04/22 at 0900, Until Discontinu ed, Routine [...] (after Medical last Branch modificati on) on [place] 01/04/22 at 0845, Until Discontinu ed, Routine iopamidol 2021- No [id number] 100mL 100 mL, Univers (ISOVUE 01-04 Intravenou ity o f 370-500 mL) 10:15: 08:55 s, ONCE, 1 [place] injection 00 :00 dose, On Medica l 100 mL [place] Branch 01/04/22 at 0515, Routine propofoL IV 2021- No 5ug/kg/ 5-50 Un alexia infusion 01-0313 min mcg/kg/min ity of 21:04: 21:03 ?104.3 kg [place] 20 :20 (3.129-31. Medical 29 mL/hr, Branch [...] ed, Routine insulin No 10U 10 Units, [facility] ers glargine 01-03 Subcutaneo ity of (LANTUS [...] is advisable.
insulin No 30U 30 Units, [facility] ers glargine 01-03 Subcutaneo ity of (LANTUS [...] o f (PF)) 19:24: 19:34 Push, [place] injection 00 :00 ONCE, 1 Medical 100 mcg dose, On Branch Wed01/02/22 at 1430, Routine meropenem 2021- No 1000mg 1,000 mg, Univers (MERREM) 01-0214 IV ity of 1,000 mg in 19:00: 15:44 Piggyback, [place] NaCl 0.9% 00 :06 Q8H ABX, Medica [...] ity of Insulin-Reg 17:00: First dose [place] ular + Fsbg 00 on Wed Medica [...] ity of (DUONEB) 13:00: , Q4H, [place] 0.5 mg-3 00 First dose Medic al [...] Routine insulin 2021- No 20U 20 Units, [facility] ers glargine 01-02 Subcutaneo ity of (LANTUS 13:00: 14:11 us, BID, [place] U-100) 00 :23 First dose Medical injection on Wed Branch 20 Units 01/02/22 at 0800, Until Discontinu ed, Routine albuterol 2021- No 2.5mg 2.5 mg, Uni vers (PROVENTIL) 01-02 Inhalation i ty of 2.5 mg /3 12:30: 01:18 , Q6H, [facility] (0.083 00 :50 First dose Medi michel [...] NS 500 mL 12:00: 14:27 from [place] IV 00 :44 1,564.5 mg Medical Piggyback [...] of 1 mEq/mL 11:45: 09:45 [place], [place] (8.4 %) 00 :00 ONCE, 1 Medical injection dose, On Branch 100 mEq Wed01/02/22 at 0645, Routine meropenem 2021- No 1000mg 1,000 mg, Univers (MERREM) 01-02 IV ity of 1,000 mg in 11:15: 12:44 Piggyback, [place] NaCl 0.9% 00 :00 ONCE, 1 Medical [...] 12/09/21 at 0000, Routine predniSONE 2021-2021- No [id number] 40mg Take 2 Univers 20 mg 3-02 03-06 tablets by ity of tablet 00:00: 05:59 mouth [place] 00 :00 daily for Medical 3 days. Branch predniSONE 2021- No [id number] 40mg Take 2 Univers 20 mg 3-02 [...] Medica l base)/3 mL needed for [facility] nebulizer Wheezing. solution spironolact Yes 25mg Take [...] as Medica l base)/[facility]. solution spironolact Yes 25mg [...] as Medica l base)/3 [facility] Wheezing. solution spironolact Yes 25mg [...] First dose [place] 17 g 00 on [facility] Medical 09/23/21 at Branch 0815, Until Discontinu [...] 00 :00 dose, On Medi michel mg [facility] 09/23/21 Branch at 0400, Routine ondansetron Yes 4mg 4 mg, Slow Univers (ZOFRAN 09-23 IV Push, ity of (PF)) 04:25: Q6HPRN, [place] injection 4 51 Starting Medi michel mg on Wed Branch 09/22/21 at 2225, Until Discontinu ed, Routine, Nausea and Vomiting (N/V) insulin Yes 60U 60 Units, [facility] [place] [facility] rs glargine 09-23 Subcutaneo ity o f (LANTUS 03:00: us, QHS, [place] U-100) 00 First dose Medical injection on Wed Branch 60 Units 09/22/21 at 2100, Until Discontinu ed, Routine Sliding Yes Subcutaneo Univ ers Scale 3 us, Q4H, ity of Insulin - 02:45: First dose [place] Lispro 00 (after Medical (HumaLOG) + last Branch Fsbg modificati Testing on) on [facility] 09/22/21 at 2045, Until Discontinu ed, Routine azithromyci 2021- No [id number] 250mg Take 1 Univers n 09-23- tablet by ity of (ZITHROMAX 00:00: 05:59 mouth [place] Z-ULYSSES) 250 00 :00 daily for Medi michel mg tablet 4 days. [place] azithromyci 2021- No [id number] 250mg Take 1 Univers n 09-23 03- tablet by ity of (ZITHROMAX 00:00: 05:59 mouth [place] Z-ULYSSES) 250 00 :00 daily for Medi michel mg tablet 4 days. [place] cyclobenzap Yes 5mg 5 mg, Unive rs [...] First dose Medical (HumaLOG) + on Wed [place] Fsbg 09/22/21 at Testing 1700, Until Discontinu ed, Routine dextrose Yes 250mL 250 mL, IV Un alexia 10% (D10W) 09-22 Infusion, ity of bolus 20:39: PRN - SEE [place] infusion 11 INSTRUCTIO Medic al 250 mL [...] or has mental changes. sulfur 2021- No [id number] 5mL 5 mL, Univ ers hexafluorid 09-22 Intravenou i ty of e microsphr 18:45: 19:00 s, ONCE, 1 [place] (LUMASON) 00 :00 dose, On Medica l injection 5 Wed [place] mL 09/22/21 at 1300, Routine
count team member approving Restricted medication : MARY GLORIA HYDROcodone Yes 1{tbl} 1 tablet, Univers -acetaminop 09-22 Oral, ity of hen (NORCO) 16:26: Q8HPRN, Compa as 10-325 mg 26 Starting Medica l tablet 1 on Wed [place] tablet 09/22/21 at 1026, Until Discontinu ed, [...] First dose Medi michel %) on Wed [place] nebulizer 09/22/21 at solution 0800, 2.5 mg Until Discontinu ed, Routine heparin 2021- Yes 5000U 5,000 Univers (porcine) 09-22 Units, ity of injection 14:00: Subcutaneo [place] 5,000 Units 00 us, Q12H, Med ical First dose Branch on Wed09/22/21 at 0800, Until Discontinu ed, Routine Sliding 2021- No Subcutaneo Uni vers Scale 09-22 us, AC+HS, ity of Insulin-Reg 13:30: 19:17 First dose [place] ular + Fsbg 00 :38 on [facility] [...] ity of (D50W) 11:14: Push, PRN, [place] injection 28 Starting Medica l 25 mL [...] 00 :00 dose, On Medica l %) [facility] nebulizer 09/22/21 at solution 0145, CT 2.5 [...] mL 14:20: mL [place] [facility]Ij [facility] Branch injector LORazepam 2020-07 Yes [id number] .5mg Take 1 Un alexia 0.5 mg 2-02 tablet by ity of tablet 00:00: mouth 3 [place] 00 (three) Medical times Branch daily as needed for Nausea and Vomiting (N/V). LORazepam 2020-07 Yes [id number] .5mg Take 1 Un alexia 0.5 mg 2-02 tablet by ity of tablet 00:00: mouth 3 [place] 00 (three) Medical times Branch daily as needed for Nausea and Vomiting (N/V). LORazepam 2020-07- No [id number] .5mg Take 1 U nivers 0.5 mg [...] nch nebulizer Wheezing. solution nystatin 2018-07 Yes [id number] Apply to Un alexia 100,000 1-06 area(s) 2 ity of unit/gram 00:00: (two) [place] cream 00 times Medical daily. Branch nystatin 2018-07 Yes [id number] Apply to Un alexia 100,000 1-06 area(s) 2 ity of unit/gram 00:00: (two) [place] cream 00 times Medical daily. Branch nystatin 2018-07- No [id number] Apply to U nivers 100,000 1-06 03-01 [...] 0-28 QD ity of tablet 00:00: [place] [facility] rosuvastati 2018- Yes TK 1 T PO U nivers n 10 mg 0-28 QD ity of tablet 00:00: [place] [facility] rosuvastati 2018-07 Yes TK 1 T PO U nivers n 10 mg 0-28 QD ity of tablet 00:00: [place] [facility] rosuvastati 2018- Yes TK 1 T PO U nivers n 10 mg 0-28 QD ity of tablet 00:00: [place] [facility] rosuvastati 2018-07 Yes TK 1 T PO U nivers n 10 mg 0-28 QD ity of tablet 00:00: [place] [facility] rosuvastati 2018-07 Yes TK 1 T PO U nivers n 10 mg 0-28 QD ity of tablet 00:00: [place] [facility] rosuvastati 2018- Yes TK 1 T PO U nivers n 10 mg 0-28 QD ity of tablet 00:00: [place] [facility] rosuvastati 2018-07 Yes TK 1 T PO U nivers n 10 mg 0-28 QD ity of tablet 00:00: [place] [facility] rosuvastati 2018- Yes TK 1 T PO U nivers n 10 mg 0-28 QD ity of tablet 00:00: [place] [facility] rosuvastati 2018- Yes TK 1 T PO U nivers n 10 mg 0-28 QD ity of tablet 00:00: [place] [facility] rosuvastati 2018- Yes TK 1 T PO U nivers n 10 mg 0-28 QD ity of tablet 00:00: [place] [facility] rosuvastati 2018- Yes TK 1 T PO U nivers n 10 mg 0-28 QD ity of tablet 00:00: [address] rosuvastati 2018- Yes TK 1 T PO U nivers n 10 mg 0-28 QD ity of tablet 00:00: [place] [facility] rosuvastati 2018- Yes TK 1 T PO U nivers n 10 mg 0-28 QD ity of tablet 00:00: [address] rosuvastati 2018- Yes TK 1 T PO U nivers n 10 mg 0-28 QD ity of tablet 00:00: Medical Branch rosuvastati 2018-07 Yes TK 1 T PO U nivers n 10 mg 0-28 QD ity of tablet 00:00: [place] Medical Branch rosuvastati 2018-07 Yes TK 1 T PO U nivers n 10 mg 0-28 QD ity of tablet 00:00: [place] [facility] rosuvastati 2018-07 Yes TK 1 T PO U nivers n 10 mg 0-28 QD ity of tablet 00:00: [place] Medical Branch rosuvastati 2018-07 Yes TK 1 T PO U nivers n 10 mg 0-28 QD ity of tablet 00:00: [place] [facility] [place] rosuvastati 2018-07 Yes TK 1 T PO U nivers n 10 mg 0-28 QD ity of tablet 00:00: [place] [facility] rosuvastati 2018-07 Yes TK 1 T PO U nivers n 10 mg 0-28 QD ity of tablet 00:00: [place] Medical Branch ofloxacin 2018-07 Yes INSTIL 2 [...] mg 0-09 ity of tablet 00:00: [place] 00 Medical Branch furosemide 2018-07 Yes Univers 20 mg 0-09 ity of tablet 00:00: [place] 00 Medical Branch furosemide 2018-07 Yes TK 1 T PO Un alexia 40 mg 0-09 QAM ity of tablet 00:00: [place] Medical Branch furosemide 2018-07 Yes TK 1 T PO Un alexia 40 mg 0-09 QAM ity of tablet 00:00: [place] 00 Medical Branch furosemide 2018-07 Yes Univers 20 mg 0-09 ity of tablet 00:00: [place] 00 Medical Branch furosemide 2018-07 Yes Univers 20 mg 0-09 ity of tablet 00:00: [place] 00 Medical Branch furosemide 2018-07 Yes Univers 20 mg 0-09 ity of tablet 00:00: [place] 00 Medical Branch furosemide 2018-07 Yes Univers 20 mg 0-09 ity of tablet 00:00: [place] 00 Medical Branch furosemide 2018-07 Yes Univers [...] Medical mg/1.5 mL) Branch PnIj fluconazole Yes [id number] 100mg Take 1 Univers 100 mg 3-26 tablet by ity of tablet 00:00: mouth [place] 00 daily. Medical Branch fluconazole Yes [id number] 100mg Take 1 Univers 100 mg 3-26 tablet by ity of tablet 00:00: mouth [place] 00 daily. Medical Branch fluconazole 2018- Yes [id number] 100mg Take 1 Univers 100 mg 3-26 tablet by ity of tablet 00:00: mouth [place] 00 daily. Medical Branch fluconazole 2019-0 Yes [id number] 100mg Take 1 Univers 100 mg 3-26 tablet by ity of tablet 00:00: mouth [place] 00 daily. Medical Branch fluconazole 2019-0 Yes [id number] 100mg Take 1 Univers 100 mg 3-26 tablet by ity of tablet 00:00: mouth [place] 00 daily. Medical Branch fluconazole 2019-0 Yes [id number] 100mg Take 1 Univers 100 mg 3-26 tablet by ity of tablet 00:00: mouth [place] 00 daily. Medical Branch fluconazole 2019-0 Yes [id number] 100mg Take 1 Univers 100 mg 3-26 tablet by ity of tablet 00:00: mouth [place] 00 daily. Medical Branch fluconazole 2019-0 Yes [id number] 100mg Take 1 Univers 100 mg 3-26 tablet by ity of tablet 00:00: mouth [place] 00 daily. Medical Branch fluconazole 2018- Yes [id number] 100mg Take 1 Univers 100 mg 3-26 tablet by ity of tablet 00:00: mouth [place] 00 daily. Medical Branch fluconazole 2018-2021- No [id number] 100mg Take 1 Univers 100 mg 3-26 [...] 40 mg 2-28 ity of tablet 00:00: [place] [address] Medical Branch paroxetine 2018-0 Yes Univers 40 mg 2-28 ity of tablet 00:00: [place] [address] Medical Branch paroxetine 2018-0 Yes Univers 40 mg 2-28 ity of tablet 00:00: [place] [address] Medical Branch paroxetine 2018-0 Yes Univers 40 mg 2-28 ity of tablet 00:00: [place] [address] Medical Branch paroxetine 2018-0 Yes Univers 40 mg 2-28 ity of tablet 00:00: [place] [address] Medical Branch paroxetine 2018-0 Yes Univers 40 mg 2-28 ity of tablet 00:00: [place] [address] Medical Branch paroxetine 2018-0 Yes Univers 40 mg 2-28 ity of tablet 00:00: [place] [address] Medical Branch paroxetine 2018-0 Yes Univers 40 mg 2-28 ity of tablet 00:00: [place] [address] Medical Branch paroxetine 2018-0 Yes Univers 40 mg 2-28 ity of tablet 00:00: [place] [address] Medical Branch paroxetine 2018-0 Yes Univers 40 mg 2-28 ity of tablet 00:00: [place] [address] Medical Branch paroxetine 2018-0 Yes Univers 40 mg 2-28 ity of tablet 00:00: [place] [address] [facility] paroxetine 2018-0 Yes Univers 40 mg 2-28 ity of tablet 00:00: [place] [address] [facility] paroxetine 2018-0 Yes Univers 40 mg 2-28 ity of tablet 00:00: [place] [address] [facility] paroxetine 2018-0 Yes Univers 40 mg 2-28 ity of tablet 00:00: [place] [address] [facility] paroxetine 2018-0 Yes Univers 40 mg 2-28 ity of tablet 00:00: [place] [address] [facility] paroxetine 2018-0 Yes Univers 40 mg 2-28 ity of tablet 00:00: [place] [address] [facility] paroxetine 2018-0 Yes Univers 40 mg 2-28 ity of tablet 00:00: [place] [address] [facility] paroxetine 2018-0 Yes Univers 40 mg 2-28 ity of tablet 00:00: [place] [address] [facility] paroxetine 2018-0 Yes Univers 40 mg 2-28 ity of tablet 00:00: [place] [address] [facility] paroxetine 2018-0 Yes Univers 40 mg 2-28 ity of tablet 00:00: [place] [address] [facility] paroxetine 2018-0 Yes Univers 40 [...] 4-18 BID ity of tablet 00:00: [place] [facility] ranitidine 2017 Yes TK 1 T PO Un alexia 300 mg 4-18 BID ity of tablet 00:00: [place] [facility] ranitidine Yes TK 1 T PO Un alexia 300 mg 4-18 BID ity of tablet 00:00: [place] [facility] ranitidine Yes TK 1 T PO Un alexia 300 mg 4-18 BID ity of tablet 00:00: [place] [facility] ranitidine Yes TK 1 T PO Un alexia 300 mg 4-18 BID ity of tablet 00:00: [place] [facility] ranitidine Yes TK 1 T PO Un alexia 300 mg 4-18 BID ity of tablet 00:00: [place] [facility] ranitidine Yes TK 1 T PO Un alexia 300 mg 4-18 BID ity of tablet 00:00: [place] [facility] ranitidine Yes TK 1 T PO Un alexia 300 mg 4-18 BID ity of tablet 00:00: [place] [facility] ranitidine Yes TK 1 T PO Un alexia 300 mg 4-18 BID ity of tablet 00:00: [place] [facility] ranitidine Yes TK 1 T PO Un alexia 300 mg 4-18 BID ity of tablet 00:00: [place] [facility] ranitidine Yes TK 1 T PO Un alexia 300 mg 4-18 BID ity of tablet 00:00: [place] [facility] ranitidine Yes TK 1 T PO Un alexia 300 mg 4-18 BID ity of tablet 00:00: [place] [facility] ranitidine Yes TK 1 T PO Un alexia 300 mg 4-18 BID ity of tablet 00:00: [place] [facility] ranitidine 2021- No TK 1 T PO U nivers 300 mg 4-18 08-05 BID ity of tablet 00:00: 00:00 [place] 00 :00 [facility] QUEtiapine Yes 50mg Take 1 Tab U nivers (SEROQUEL) 9-26 by mouth ity o f 50 mg 00:00: at [place] tablet 00 bedtime. Medical Branch QUEtiapine 2015-0 [...] Immunizations Ordered Filled Immunization Date Status Comments [facility] e Immunization Name Name Pneumococcal 2017-06-08 Completed [place] o f Polysaccharide, 00:00:00 [facility] ical PPSV23 (PNEUMOVAX) Branch Influenza Virus 2017-06-08 Completed Universit y of Vaccine Quad IM 3+ 00:00:00 [facility] Branch Pneumococcal 2017-06-08 Completed [place] o f Polysaccharide, 00:00:00 [place] [facility] ical PPSV23 (PNEUMOVAX) Branch Influenza Virus 2017-06-08 Completed Universit y of Vaccine Quad IM 3+ 00:00:00 [facility] Pneumococcal 2017-06-08 Completed University o f Polysaccharide, 00:00:00 [place] [facility] PPSV23 (PNEUMOVAX) Branch Influenza Virus 2017-06-08 Completed Universit y of Vaccine Quad IM 3+ 00:00:00 [facility] Pneumococcal 2017-06-08 Completed University o f Polysaccharide, 00:00:00 [place] [facility] ical PPSV23 (PNEUMOVAX) Branch Influenza Virus 2017-06-08 Completed Universit y of Vaccine Quad IM 3+ 00:00:00 [facility] Pneumococcal 2017-06-08 Completed University o f Polysaccharide, 00:00:00 [place] [facility] PPSV23 (PNEUMOVAX) Branch Influenza Virus 2017-06-08 Completed Universit y of Vaccine Quad IM 3+ 00:00:00 [facility] Pneumococcal 2017-06-08 Completed University o f Polysaccharide, 00:00:00 [place] [facility] PPSV23 (PNEUMOVAX) Branch Influenza Virus 2017-06-08 Completed Universit y of Vaccine Quad IM 3+ 00:00:00 [facility] Pneumococcal 2017-06-08 Completed University o f Polysaccharide, 00:00:00 [place] [facility] PPSV23 (PNEUMOVAX) Branch Influenza Virus 2017-06-08 Completed Universit y of Vaccine Quad IM 3+ 00:00:00 [facility] Pneumococcal 2017-06-08 Completed University o f Polysaccharide, 00:00:00 [place] [facility] PPSV23 (PNEUMOVAX) Branch Influenza Virus 2017-06-08 Completed Universit y of Vaccine Quad IM 3+ 00:00:00 [facility] Pneumococcal 2017-06-08 Completed University o f Polysaccharide, 00:00:00 [place] [facility] PPSV23 (PNEUMOVAX) Branch Influenza Virus 2017-06-08 Completed Universit y of Vaccine Quad IM 3+ 00:00:00 [facility] Pneumococcal 2017-06-08 Completed University o f Polysaccharide, 00:00:00 [place] [facility] PPSV23 (PNEUMOVAX) Branch Influenza Virus 2017-06-08 Completed Universit y of Vaccine Quad IM 3+ 00:00:00 [facility] Pneumococcal 2017-06-08 Completed University o f Polysaccharide, 00:00:00 [place] [facility] PPSV23 (PNEUMOVAX) Branch Influenza Virus 2017-06-08 Completed Universit y of Vaccine Quad IM 3+ 00:00:00 [facility] Pneumococcal 2017-06-08 Completed University o f Polysaccharide, 00:00:00 [place] [facility] PPSV23 (PNEUMOVAX) Branch Influenza Virus 2017-06-08 Completed Universit y of Vaccine Quad IM 3+ 00:00:00 [facility] Pneumococcal 2017-06-08 Completed University o f Polysaccharide, 00:00:00 [place] [facility] PPSV23 (PNEUMOVAX) Branch Influenza Virus 2017-06-08 Completed Universit y of Vaccine Quad IM 3+ 00:00:00 [facility] Pneumococcal 2017-06-08 Completed University o f Polysaccharide, 00:00:00 [place] [facility] PPSV23 (PNEUMOVAX) Branch Influenza Virus 2017-06-08 Completed Universit y of Vaccine Quad IM 3+ 00:00:00 [facility] Pneumococcal 2017-06-08 Completed University o f Polysaccharide, 00:00:00 [place] [facility] PPSV23 (PNEUMOVAX) Branch Influenza Virus 2017-06-08 Completed Universit y of Vaccine Quad IM 3+ 00:00:00 [facility] Pneumococcal 2017-06-08 Completed University o f Polysaccharide, 00:00:00 [place] [facility] PPSV23 (PNEUMOVAX) Branch Influenza Virus 2017-06-08 Completed Universit y of Vaccine Quad IM 3+ 00:00:00 [facility] Pneumococcal 2017-06-08 Completed University o f Polysaccharide, 00:00:00 [place] [facility] PPSV23 (PNEUMOVAX) Branch Influenza Virus 2017-06-08 Completed Universit y of Vaccine Quad IM 3+ 00:00:00 [facility] Pneumococcal 2017-06-08 Completed University o f Polysaccharide, 00:00:00 [place] [facility] PPSV23 (PNEUMOVAX) Branch Influenza Virus 2017-06-08 Completed Universit y of Vaccine Quad IM 3+ 00:00:00 [facility] Pneumococcal 2017-06-08 Completed University o f Polysaccharide, 00:00:00 [place] [facility] PPSV23 (PNEUMOVAX) Branch Influenza Virus 2017-06-08 Completed Universit y of Vaccine Quad IM 3+ 00:00:00 [facility] Pneumococcal 2017-06-08 Completed University o f Polysaccharide, 00:00:00 [place] [facility] PPSV23 (PNEUMOVAX) Branch Influenza Virus 2017-06-08 Completed Universit y of Vaccine Quad IM 3+ 00:00:00 [facility] Pneumococcal 2017-06-08 Completed University o f Polysaccharide, 00:00:00 [place] [facility] PPSV23 (PNEUMOVAX) Branch Influenza Virus 2017-06-08 Completed Universit y of Vaccine Quad IM 3+ 00:00:00 [facility] Pneumococcal 2017-06-08 Completed University o f Polysaccharide, 00:00:00 [facility] ical PPSV23 (PNEUMOVAX) Branch Influenza Virus 2017-06-08 Completed Universit y of Vaccine Quad IM 3+ 00:00:00 [facility] Influenza Virus 2015-06-20 Completed Universit y of Vaccine Quad IM 3+ 00:00:00 [facility] Influenza Virus 2015-06-20 Completed Universit y of Vaccine Quad IM 3+ 00:00:00 [facility] Influenza Virus 2015-06-20 Completed Universit y of Vaccine Quad IM 3+ 00:00:00 [facility] Influenza Virus 2015-06-20 Completed Universit y of Vaccine Quad IM 3+ 00:00:00 [facility] Influenza Virus 2015-06-20 Completed Universit y of Vaccine Quad IM 3+ 00:00:00 [facility] Influenza Virus 2015-06-20 Completed Universit y of Vaccine Quad IM 3+ 00:00:00 [facility] Influenza Virus 2015-06-20 Completed Universit y of Vaccine Quad IM 3+ 00:00:00 [facility] Influenza Virus 2015-06-20 Completed Universit y of Vaccine Quad IM 3+ 00:00:00 [facility] Influenza Virus 2015-06-20 Completed Universit y of Vaccine Quad IM 3+ 00:00:00 [facility] Influenza Virus 2015-06-20 Completed Universit y of Vaccine Quad IM 3+ 00:00:00 [facility] Influenza Virus 2015-06-20 Completed Universit y of Vaccine Quad IM 3+ 00:00:00 [facility] Influenza Virus 2015-06-20 Completed Universit y of Vaccine Quad IM 3+ 00:00:00 [facility] Influenza Virus 2015-06-20 Completed Universit y of Vaccine Quad IM 3+ 00:00:00 [facility] Influenza Virus 2015-06-20 Completed Universit y of Vaccine Quad IM 3+ 00:00:00 [facility] Influenza Virus 2015-06-20 Completed Universit y of Vaccine Quad IM 3+ 00:00:00 [facility] Influenza Virus 2015-06-20 Completed Universit y of Vaccine Quad IM 3+ 00:00:00 [facility] Influenza Virus 2015-06-20 Completed Universit y of Vaccine Quad IM 3+ 00:00:00 [facility] Influenza Virus 2015-06-20 Completed Universit y of Vaccine Quad IM 3+ 00:00:00 [facility] Influenza Virus 2015-06-20 Completed Universit y of Vaccine Quad IM 3+ 00:00:00 [facility] Influenza Virus 2015-06-20 Completed Universit y of Vaccine Quad IM 3+ 00:00:00 [facility] Influenza Virus 2015-06-20 Completed Universit y of Vaccine Quad IM 3+ 00:00:00 [facility] Influenza Virus 2015-06-20 Completed Universit y of Vaccine Quad IM 3+ 00:00:00 [facility] Pneumococcal 2014-07-31 Completed University o f Polysaccharide, 00:00:00 [place] [facility] PPSV23 (PNEUMOVAX) Branch Influenza Virus 2014-07-31 Completed Universit y of Vaccine Quad IM 3+ 00:00:00 [facility] TDAP 2014-07-31 Completed University of 00:00:00 [facility] Pneumococcal 2014-07-31 Completed University o f Polysaccharide, 00:00:00 [place] [facility] PPSV23 (PNEUMOVAX) Branch Influenza Virus 2014-07-31 Completed Universit y of Vaccine Quad IM 3+ 00:00:00 [facility] TDAP 2014-07-31 Completed University of 00:00:00 [facility] Pneumococcal 2014-07-31 Completed University o f Polysaccharide, 00:00:00 [place] [facility] PPSV23 (PNEUMOVAX) Branch Influenza Virus 2014-07-31 Completed Universit y of Vaccine Quad IM 3+ 00:00:00 [facility] TDAP 2014-07-31 Completed University of 00:00:00 [facility] Pneumococcal 2014-07-31 Completed University o f Polysaccharide, 00:00:00 [place] [facility] PPSV23 (PNEUMOVAX) Branch Influenza Virus 2014-07-31 Completed Universit y of Vaccine Quad IM 3+ 00:00:00 [facility] TDAP 2014-07-31 Completed University of 00:00:00 [facility] Pneumococcal 2014-07-31 Completed University o f Polysaccharide, 00:00:00 [place] [facility] PPSV23 (PNEUMOVAX) Branch Influenza Virus 2014-07-31 Completed Universit y of Vaccine Quad IM 3+ 00:00:00 [facility] TDAP 2014-07-31 Completed University of 00:00:00 [facility] Pneumococcal 2014-07-31 Completed University o f Polysaccharide, 00:00:00 [place] [facility] PPSV23 (PNEUMOVAX) Branch Influenza Virus 2014-07-31 Completed Universit y of Vaccine Quad IM 3+ 00:00:00 [facility] TDAP 2014-07-31 Completed University of 00:00:00 [facility] Pneumococcal 2014-07-31 Completed University o f Polysaccharide, 00:00:00 [place] [facility] PPSV23 (PNEUMOVAX) Branch Influenza Virus 2014-07-31 Completed Universit y of Vaccine Quad IM 3+ 00:00:00 [facility] TDAP 2014-07-31 Completed University of 00:00:00 [facility] Pneumococcal 2014-07-31 Completed University o f Polysaccharide, 00:00:00 [place] [facility] PPSV23 (PNEUMOVAX) Branch Influenza Virus 2014-07-31 Completed Universit y of Vaccine Quad IM 3+ 00:00:00 [facility] TDAP 2014-07-31 Completed University of 00:00:00 [facility] Pneumococcal 2014-07-31 Completed University o f Polysaccharide, 00:00:00 [place] [facility] PPSV23 (PNEUMOVAX) Branch Influenza Virus 2014-07-31 Completed Universit y of Vaccine Quad IM 3+ 00:00:00 [facility] TDAP 2014-07-31 Completed University of 00:00:00 [facility] Pneumococcal 2014-07-31 Completed University o f Polysaccharide, 00:00:00 [place] [facility] PPSV23 (PNEUMOVAX) Branch Influenza Virus 2014-07-31 Completed Universit y of Vaccine Quad IM 3+ 00:00:00 [facility] TDAP 2014-07-31 Completed University of 00:00:00 [facility] Pneumococcal 2014-07-31 Completed University o f Polysaccharide, 00:00:00 [place] [facility] PPSV23 (PNEUMOVAX) Branch Influenza Virus 2014-07-31 Completed Universit y of Vaccine Quad IM 3+ 00:00:00 [facility] TDAP 2014-07-31 Completed University of 00:00:00 [facility] Pneumococcal 2014-07-31 Completed University o f Polysaccharide, 00:00:00 [place] [facility] PPSV23 (PNEUMOVAX) Branch Influenza Virus 2014-07-31 Completed Universit y of Vaccine Quad IM 3+ 00:00:00 [facility] TDAP 2014-07-31 Completed University of 00:00:00 [facility] Pneumococcal 2014-07-31 Completed University o f Polysaccharide, 00:00:00 [place] [facility] PPSV23 (PNEUMOVAX) Branch Influenza Virus 2014-07-31 Completed Universit y of Vaccine Quad IM 3+ 00:00:00 [facility] TDAP 2014-07-31 Completed University of 00:00:00 [facility] Pneumococcal 2014-07-31 Completed University o f Polysaccharide, 00:00:00 [place] [facility] PPSV23 (PNEUMOVAX) Branch Influenza Virus 2014-07-31 Completed Universit y of Vaccine Quad IM 3+ 00:00:00 [facility] TDAP 2014-07-31 Completed University of 00:00:00 [facility] Pneumococcal 2014-07-31 Completed University o f Polysaccharide, 00:00:00 [place] [facility] PPSV23 (PNEUMOVAX) Branch Influenza Virus 2014-07-31 Completed Universit y of Vaccine Quad IM 3+ 00:00:00 [facility] TDAP 2014-07-31 Completed University of 00:00:00 [facility] Pneumococcal 2014-07-31 Completed University o f Polysaccharide, 00:00:00 [place] [facility] PPSV23 (PNEUMOVAX) Branch Influenza Virus 2014-07-31 Completed Universit y of Vaccine Quad IM 3+ 00:00:00 [facility] TDAP 2014-07-31 Completed University of 00:00:00 [facility] Pneumococcal 2014-07-31 Completed University o f Polysaccharide, 00:00:00 [place] [facility] PPSV23 (PNEUMOVAX) Branch Influenza Virus 2014-07-31 Completed Universit y of Vaccine Quad IM 3+ 00:00:00 [facility] TDAP 2014-07-31 Completed University of 00:00:00 [facility] Pneumococcal 2014-07-31 Completed University o f Polysaccharide, 00:00:00 [place] [facility] PPSV23 (PNEUMOVAX) Branch Influenza Virus 2014-07-31 Completed Universit y of Vaccine Quad IM 3+ 00:00:00 [facility] TDAP 2014-07-31 Completed University of 00:00:00 [facility] Pneumococcal 2014-07-31 Completed University o f Polysaccharide, 00:00:00 [place] [facility] PPSV23 (PNEUMOVAX) Branch Influenza Virus 2014-07-31 Completed Universit y of Vaccine Quad IM 3+ 00:00:00 [facility] TDAP 2014-07-31 Completed University of 00:00:00 [facility] Pneumococcal 2014-07-31 Completed University o f Polysaccharide, 00:00:00 [place] [facility] PPSV23 (PNEUMOVAX) Branch Influenza Virus 2014-07-31 Completed Universit y of Vaccine Quad IM 3+ 00:00:00 [facility] TDAP 2014-07-31 Completed University of 00:00:00 [facility] Pneumococcal 2014-07-31 Completed University o f Polysaccharide, 00:00:00 [place] [facility] PPSV23 (PNEUMOVAX) Branch Influenza Virus 2014-07-31 Completed Universit y of Vaccine Quad IM 3+ 00:00:00 [facility] TDAP 2014-07-31 Completed University of 00:00:00 [facility] Pneumococcal 2014-07-31 Completed University o f Polysaccharide, 00:00:00 [place] [facility] PPSV23 (PNEUMOVAX) Branch Influenza Virus 2014-07-31 Completed Universit y of Vaccine Quad IM 3+ 00:00:00 [facility] TDAP 2014-07-31 Completed University of 00:00:00 [facility] Vital Signs Vital Name Observation Time Observation Value Comments Source Systolic blood 2022-09-09 14:30:00 105 mm[Hg] Univer sity of pressure [facility] Diastolic blood 2022-09-09 14:30:00 78 mm[Hg] Unive rsity of [facility] Heart rate 2022-09-09 14:30:00 95 /min [facility] Body temperature 2022-09-09 14:30:00 37.22 [place] Univ ersity [facility] Respiratory rate 2022-09-09 14:30:00 12 /min [facility] Oxygen saturation in 2022-09-09 14:30:00 93 /min University of Arterial blood by [facility] Pulse oximetry Branch Body height 2022-09-09 12:41:00 152.4 cm Universi ty [facility] [place] [facility] Body weight 2022-09-09 12:41:00 98.431 kg [facility] [place] [facility] BMI 2022-09-09 12:41:00 42.38 kg/m2 Universi ty of [place] [facility] Systolic blood 2022-08-10 22:08:00 129 mm[Hg] Univer sity of pressure [place] [facility] Diastolic blood 2022-08-10 22:08:00 76 mm[Hg] Unive rsity of pressure [place] [facility] Heart rate 2022-08-10 22:08:00 107 /min [facility] [place] [facility] Body temperature 2022-08-10 22:08:00 37.17 [place] Univ ersity of [place] [facility] Respiratory rate 2022-08-10 22:08:00 15 /min Univ ersity of [place] [facility] Oxygen saturation in 2022-08-10 22:08:00 96 /min University of Arterial blood by [facility] Pulse oximetry Branch Body weight 2022-08-10 09:00:00 98.5 kg [facility] [place] [facility] BMI 2022-08-10 09:00:00 41.03 kg/m2 [facility] [place] [facility] Body height 2022-08-05 06:47:00 154.9 cm Universi ty of [place] [facility] Systolic blood 2022-06-05 05:00:00 96 mm[Hg] Univer sity of pressure [place] [facility] Diastolic blood 2022-06-05 05:00:00 66 mm[Hg] Unive rsity of pressure [place] [facility] Heart rate 2022-06-05 05:00:00 82 /min [facility] [place] [facility] Respiratory rate 2022-06-05 05:00:00 13 /min Univ ersity of [place] [facility] Oxygen saturation in 2022-06-05 05:00:00 97 /min University of Arterial blood by [facility] Pulse oximetry Branch Body temperature 2022-06-05 02:51:00 36.33 [place] Univ ersity of [place] [facility] Body height 2022-06-05 02:51:00 154.9 cm Universi ty of [place] [facility] Body weight 2022-06-05 02:51:00 97.523 kg Universi ty of [place] [facility] BMI 2022-06-05 02:51:00 40.62 kg/m2 Universi ty of [place] [facility] Systolic blood 2022-05-13 07:00:00 127 mm[Hg] Univer sity of pressure [place] [facility] Diastolic blood 2022-05-13 07:00:00 84 mm[Hg] Unive rsity of pressure [place] [facility] Heart rate 2022-05-13 07:00:00 90 /min Universi ty of [place] [facility] Respiratory rate 2022-05-13 07:00:00 14 /min Univ ersity of [place] [facility] Oxygen saturation in 2022-05-13 07:00:00 97 /min University of Arterial blood by [place] [employer] [facility] Pulse oximetry Branch Body temperature 2022-05-13 04:01:00 36.56 [place] Univ ersity of [place] [facility] Body height 2022-05-13 04:01:00 154.9 cm Universi ty of [place] [facility] Body weight 2022-05-13 04:01:00 95.255 kg [facility] [place] [facility] BMI 2022-05-13 04:01:00 39.68 kg/m2 [facility] [place] [facility] Systolic blood 2022-05-02 07:00:00 147 mm[Hg] Univer sity of pressure [place] [facility] Diastolic blood 2022-05-02 07:00:00 90 mm[Hg] Unive rsity of pressure [place] [facility] Heart rate 2022-05-02 07:00:00 86 /min Universi ty of [place] [facility] Respiratory rate 2022-05-02 07:00:00 17 /min Univ ersity of [place] [facility] Oxygen saturation in 2022-05-02 07:00:00 98 /min University of Arterial blood by [place] [employer] [facility] Pulse oximetry Branch Body temperature 2022-05-02 05:21:00 36.44 [place] Univ ersity of [place] [facility] Body height 2022-05-02 05:21:00 154.9 cm [facility] [place] [facility] Body weight 2022-05-02 05:21:00 95.255 kg [facility] [place] [facility] BMI 2022-05-02 05:21:00 39.68 kg/m2 Universi ty of [place] [facility] Systolic blood 2022-04-29 05:36:00 133 mm[Hg] Univer sity of pressure [place] [facility] Diastolic blood 2022-04-29 05:36:00 85 mm[Hg] Unive rsity of pressure [place] [facility] Heart rate 2022-04-29 05:36:00 89 /min Universi ty of [place] [facility] Respiratory rate 2022-04-29 05:36:00 22 /min Univ ersity of [place] [facility] Oxygen saturation in 2022-04-29 05:36:00 100 /min University of Arterial blood by [place] [employer] [facility]hel Pulse oximetry Branch Body temperature 2022-04-29 02:44:00 36.56 [place] Univ ersity of [place] [facility] Body height 2022-04-29 02:44:00 154.9 cm Universi ty of [place] [facility] Body weight 2022-04-29 02:44:00 95.255 kg [facility]i ty of [place] [facility] BMI 2022-04-29 02:44:00 39.68 kg/m2 [facility] of [place] [facility] Systolic blood 2022-02-27 21:00:00 116 mm[Hg] Univer sity of pressure [place] [facility] Diastolic blood 2022-02-27 21:00:00 74 mm[Hg] Unive rsity of pressure [place] [facility] Heart rate 2022-02-27 21:00:00 89 /min [facility]i [facility] [place] [facility] Body temperature 2022-02-27 21:00:00 36.61 [place] [facility] ersity of [place] [facility] Respiratory rate 2022-02-27 21:00:00 18 /min Univ ersity of [place] [facility] Oxygen saturation in 2022-02-27 21:00:00 98 /min University of Arterial blood by [place] [employer] [facility]hel Pulse oximetry Branch Body weight 2022-02-23 13:00:00 92.987 kg [facility]i ty of [place] [facility] BMI 2022-02-23 13:00:00 38.73 kg/m2 [facility] of [place] [facility] Body height 2022-02-21 01:00:00 154.9 cm [facility]i ty of [place] [facility] Body temperature 2022-02-17 21:50:00 37.17 [place] Univ ersity of [place] [facility] Heart rate 2022-02-17 21:42:00 77 /min [facility]i ty of [place] [facility] Respiratory rate 2022-02-17 21:42:00 18 /min Univ ersity of [place] [facility] Oxygen saturation in 2022-02-17 21:42:00 94 /min University of Arterial blood by [facility] Pulse oximetry Branch Systolic blood 2022-02-17 [...] 136 mm[Hg] Univer sity of pressure [place] [facility] Diastolic blood 2022-01-31 16:32:00 80 mm[Hg] Unive rsity of pressure [place] [facility] Heart rate 2022-01-31 16:32:00 84 /min [facility] [place] [facility] Body temperature 2022-01-31 16:32:00 37 [place] Univ ersity [facility] [place] [facility] Respiratory rate 2022-01-31 16:32:00 10 /min Univ ersity of [place] [facility] Oxygen saturation in 2022-01-31 16:32:00 98 /min University of Arterial blood by [facility] Pulse oximetry Branch Body weight 2022-01-30 09:00:00 103.964 kg [facility] BMI 2022-01-30 09:00:00 43.31 kg/m2 [facility] Body height 2022-01-28 04:12:00 154.9 cm [facility] Systolic blood 2022-01-13 03:00:00 134 mm[Hg] [facility] Diastolic blood 2022-01-13 03:00:00 94 mm[Hg] [facility] Heart rate 2022-01-13 03:00:00 119 /min [facility] Respiratory rate 2022-01-13 03:00:00 18 /min [facility] Oxygen saturation in 2022-01-13 03:00:00 91 /min [facility] Arterial blood by [place] [employer] michel Pulse oximetry Branch Body temperature 2022-01-12 22:31:00 36.94 Laly [facility] Body height 2022-01-12 22:31:00 154.9 cm [facility] Body weight 2022-01-12 22:31:00 104.327 kg [facility] BMI 2022-01-12 22:31:00 43.46 kg/m2 [facility] Systolic blood 2022-01-12 17:00:00 135 mm[Hg] [facility] Diastolic blood 2022-01-12 17:00:00 65 mm[Hg] [facility]ive [facility] Heart rate 2022-01-12 17:00:00 108 /min [facility] Respiratory rate 2022-01-12 17:00:00 20 /min [facility] Oxygen saturation in 2022-01-12 17:00:00 92 /min [facility] Arterial blood by [place] [employer] michel Pulse oximetry Branch Body temperature 2022-01-12 09:00:00 36.22 Laly [facility] Body weight 2022-01-03 17:00:00 104.32 kg [facility] BMI 2022-01-03 17:00:00 43.46 kg/m2 [facility] Body height 2022-01-02 09:20:00 154.9 cm [facility] Systolic blood 2021-12-09 05:00:00 123 mm[Hg] [facility] Diastolic blood 2021-12-09 05:00:00 66 mm[Hg] [facility] Heart rate 2021-12-09 05:00:00 96 /min [facility] Respiratory rate 2021-12-09 05:00:00 13 /min [facility] Oxygen saturation in 2021-12-09 05:00:00 96 /min [facility] Arterial blood by [place] [employer] michel Pulse oximetry Branch Body temperature 2021-12-09 03:35:00 35.94 Laly [facility] Body height 2021-12-09 03:35:[address] [facility] Body weight 2021-12-09 03:35:00 104.327 kg [facility] BMI 2021-12-09 03:35:00 43.46 kg/m2 [facility] Systolic blood 2021-09-23 20:00:00 141 mm[Hg] Univer sity of pressure [facility] Diastolic blood 2021-09-23 20:00:00 83 mm[Hg] [facility] [place] Heart rate 2021-09-23 20:00:00 98 /min [facility] Respiratory rate 2021-09-23 20:00:00 16 /min [facility] Oxygen saturation in 2021-09-23 20:00:00 97 /min [facility] Arterial blood by [facility] Pulse oximetry [place] Body temperature 2021-09-23 18:00:00 36.61 Laly [facility] Body height 2021-09-22 21:50:00 154.9 cm [facility] Body weight 2021-09-22 21:50:00 104.3 kg [facility] BMI 2021-09-22 21:50:00 43.45 kg/m2 [facility] Procedures Procedure Date / Time Performing Clinician Source Performed TROPONIN I 2022-09-09 13:20:00 Joslyn Ruelas [facility] COMP. METABOLIC PANEL 2022-09-09 13:20:00 Joslyn Ruelas [facility] ([id number]) [facility] CBC WITH DIFF 2022-09-09 13:20:00 Joslyn Ruelas [facility] RAPID INFLUENZA A/B 2022-09-09 13:20:00 [facility] N-TERMINAL PRO-BNP 2022-09-09 13:20:00 [facility] COVID-19 (ID NOW RAPID 2022-09-09 13:20:00 Joslyn Ruelas [facility] CONSENT/REFUSAL FOR 2022-09-09 12:19:48 Doctor Unassigned, [facility] DIAGNOSIS AND TREATMENT [facility] [place] POCT GLUCOSE (AUTOMATED) 2022-08-10 17:15:00 Jonas [facility]) 2022-08-10 13:45:00 [facility] (AUTOMATED) 2022-08-10 09:17:00 [facility] PO[facility]SE (AUTOMATED) 2022-08-10 06:01:00 [facility] PO[facility]SE (AUTOMATED) 2022-08-10 02:09:00 Jonas Hernandez Nimco versity [facility] POCT GLUCOSE (AUTOMATED) 2022-08-09 22:26:00 Jonas Hernandez [facility] XR CHEST 1 VW 2022-08-09 19:47:37 [facility] 2022-08-09 14:07:17 Carlos [facility] POCT GLUCOSE (AUTOMATED) 2022-08-09 13:17:00 [facility] PHOSPHORUS 2022-08-09 11:24:00 [facility] 2022-08-09 11:24:00 Carlos [facility] BASIC METABOLIC PANEL 2022-08-09 11:24:00 Corey Gonzalez [facility] (NA, K, CL, CO2, GLUCOSE, Medica l Branch BUN, CREATININE, CA) CBC WITH DIFF 2022-08-09 11:24:00 Carlos [facility] POCT GLUCOSE (AUTOMATED) 2022-08-09 11:22:00 [facility]SE (AUTOMATED) 2022-08-09 06:16:00 Jonas Hernandez Uni versity [facility] POCT GLUCOSE (AUTOMATED) 2022-08-09 02:24:00 Jonas Hernandez Uni versity [facility] POCT GLUCOSE (AUTOMATED) 2022-08-08 22:31:00 Jonas Hernandez Nimco [facility] POCT GLUCOSE (AUTOMATED) 2022-08-08 17:30:00 Jonas Hernandez Nimco [facility] POCT GLUCOSE (AUTOMATED) 2022-08-08 13:20:00 Jonas Hernandez Nimco [facility] POCT GLUCOSE (AUTOMATED) 2022-08-08 09:51:00 Jonas Hernandez Nimco [facility] POCT GLUCOSE (AUTOMATED) 2022-08-08 06:10:00 [facility] PO[facility]SE (AUTOMATED) 2022-08-08 02:37:00 Jonas Hernandez Nimco [facility] POCT GLUCOSE (AUTOMATED) 2022-08-07 22:16:00 Jonas Hernandez Nimco [facility] POCT GLUCOSE (AUTOMATED) 2022-08-07 17:26:00 Jonas Hernandez Nimco [facility] TRANSTHORACIC ECHO (TTE) 2022-08-07 16:31:00 Stella Ivory [facility] COMPLETE W/ [facility]SE [facility]AUTOMATED) 2022-08-07 13:42:00 Jonas Hernandez Nimco [facility] PHOSPHORUS 2022-08-07 11:00:00 Corey Gonzalez [facility] MAGNESIUM 2022-08-07 11:00:00 Corey Gonzalez [facility] BILI UNCONJUGATED/BILI 2022-08-07 11:00:00 Corey Gonzalez [facility] TROPONIN I 2022-08-07 11:00:00 Corey Gonzalez [facility] THYROID STIMULATING 2022-08-07 11:00:00 Corey Gonzalez [facility] HORMONE [facility] COMP. METABOLIC PANEL 2022-08-07 11:00:00 Jonas Hernandez [facility] ([id number]) [facility] CBC WITH DIFF 2022-08-07 11:00:00 Corey Gonzalez [facility] N-TERMINAL PRO-BNP 2022-08-07 11:00:00 Corey Gonzalez [facility] ACUTE CARE VENOUS BLOOD 2022-08-07 10:59:00 Jonas Hernandez [facility] POCT GLUCOSE (AUTOMATED) 2022-08-07 10:17:00 Jonas Hernandez [facility] POCT GLUCOSE (AUTOMATED) 2022-08-07 05:38:00 Jonas Hernandez [facility] POCT GLUCOSE (AUTOMATED) 2022-08-07 02:06:00 Jonas Hernandez [facility] POCT GLUCOSE (AUTOMATED) 2022-08-06 22:27:00 Jonas Hernandez [facility] POCT GLUCOSE (AUTOMATED) 2022-08-06 17:15:00 Jonas Hernandez [facility] CT THORAX W CONTRAST 2022-08-06 16:53:51 Anish Walters [facility] CORTISOL AM 2022-08-06 13:33:00 Mary agus [facility] CBC WITH DIFF 2022-08-06 13:33:00 Mary [facility] LACTIC ACID WHOLE BLOOD 2022-08-06 13:33:00 Jonas Hernandez [facility] POCT GLUCOSE (AUTOMATED) 2022-08-06 13:27:00 Mary agus [facility] POCT GLUCOSE (AUTOMATED) 2022-08-06 10:37:00 Jonas Hernandez [facility] PHOSPHORUS 2022-08-06 10:25:00 Jonas Hernandez [facility] CREATINE KINASE 2022-08-06 10:25:00 Jonas Hernandez [facility] MAGNESIUM 2022-08-06 10:25:00 Mary agus [facility] TROPONIN I 2022-08-06 10:25:00 Mary agus [facility] COMP. METABOLIC PANEL 2022-08-06 10:25:00 [id number] ACUTE CARE VENOUS BLOOD 2022-08-06 10:25:00 Jonas Hernandez [facility] N-TERMINAL PRO-BNP 2022-08-06 10:25:00 Jonas Hernandez [facility] POCT GLUCOSE (AUTOMATED) 2022-08-06 06:54:00 Jonas Hernandez [facility] POCT GLUCOSE (AUTOMATED) 2022-08-06 02:30:00 Jonas Hernandez [facility] POCT GLUCOSE (AUTOMATED) 2022-08-05 22:59:00 Jonas Hernandez [facility] TROPONIN I 2022-08-05 22:00:00 Jonas Hernandez [facility] URINALYSIS 2022-08-05 21:45:00 Carlos [facility] URINE CULTURE 2022-08-05 21:45:00 Carlos [facility] POCT GLUCOSE (AUTOMATED) 2022-08-05 17:53:00 Jonas Hernandez [facility] POCT GLUCOSE (AUTOMATED) 2022-08-05 13:19:00 Jonas Hernandez [facility] XR CHEST 1 VW 2022-08-05 12:59:00 Mary agus [facility] LEGIONELLA URINARY 2022-08-05 11:12:00 Jonas Hernandez [facility] RESPIRATORY PANEL BY PCR 2022-08-05 11:12:00 Jonas Hernandez [facility] URINE CULTURE 2022-08-05 11:11:00 Jonas Hernandez [facility] SODIUM, URINE RANDOM 2022-08-05 11:11:00 Jonas Hernandez [facility] PNEUMOCOCCAL ANTIGEN 2022-08-05 11:11:00 Jonas Hernandez [facility] PROTEIN CREAT RATIO URINE 2022-08-05 11:11:00 Jonas Hernandez [facility] OSMOLALITY URINE 2022-08-05 11:10:00 Mary [facility] MRSA / MSSA SCREEN BY 2022-08-05 11:09:00 Jonas Hernandez [facility] PCR, NARES [facility] PHOSPHORUS 2022-08-05 11:08:00 Mary agus [facility] CREATINE KINASE 2022-08-05 11:08:00 Mary agus [facility] MAGNESIUM 2022-08-05 11:08:00 Mary agus [facility] TROPONIN I 2022-08-05 11:08:00 Mary [facility] COMP. METABOLIC PANEL 2022-08-05 11:08:00 Mary agus [facility] ([id number]) [facility] LIPID PANEL ([id number])(TOTAL 2022-08-05 11:08:00 Jonas Hernandez [facility] CHOLESTEROL, [facility] TRIGLYCERIDES, HDL) SEDIMENTATION RATE 2022-08-05 11:08:00 Jonas Hrenandez [facility] GLYCOSYLATED HEMOGLOBIN 2022-08-05 11:08:[address] [facility] (A1C) [facility] URINALYSIS 2022-08-05 11:08:00 Mary [facility] MYCOPLASMA PNEUMONIAE 2022-08-05 11:08:00 Jonas Hernandez [facility] ANTIBODY, IGM [facility] N-TERMINAL PRO-BNP 2022-08-05 11:08:00 Mary agus [facility] PROCALCITONIN 2022-08-05 11:08:00 Mary agus [facility] AC PANEL 20 + LACTIC ACID 2022-08-05 10:56:00 Jonas Hernandez [facility] ASSIGNMENT OF BENEFITS 2022-08-05 06:59:31 Doctor Unassigned, [facility] Name [facility] [place] CONSENT/REFUSAL FOR 2022-08-05 06:58:52 Doctor Unassigned, [facility] DIAGNOSIS AND TREATMENT [facility] [place] XR CHEST 1 VW 2022-06-05 04:10:06 Singer Gen [facility] TROPONIN I 2022-06-05 03:21:00 Singer [facility] COMP. METABOLIC PANEL 2022-06-05 03:21:00 Gen Acevedo [facility] ([id number]) [facility] CBC WITH DIFF 2022-06-05 03:21:00 Singer [facility] RAPID INFLUENZA A/B 2022-06-05 03:21:00 Gen Acevedo [facility] N-TERMINAL PRO-BNP 2022-06-05 03:21:00 Singer Gen [facility] COVID-19 (ID NOW RAPID 2022-06-05 03:21:00 Gen Acevedo [facility] TESTING) Medical Branch CONSENT/REFUSAL FOR 2022-06-05 02:20:45 Doctor Unassigned [facility] DIAGNOSIS AND TREATMENT [facility] TROPONIN I 2022-05-13 07:08:00 Paula Rowe [facility] CT CHEST PULMONARY 2022-05-13 06:13:34 Paula Rowe [facility] ANGIOGRAM Medical Branch XR CHEST 1 VW 2022-05-13 04:42:45 Paula Rowe [facility] BLOOD CULTURE SCREEN 2022-05-13 04:10:00 Paula Rowe [facility] TROPONIN I 2022-05-13 04:10:00 Jae Paula [facility] COMP. METABOLIC PANEL 2022-05-13 04:10:00 Paula Rowe [facility] ([id number]) [facility] CBC WITH DIFF 2022-05-13 04:10:00 Paula Rowe [facility] PROTHROMBIN TIME / INR 2022-05-13 04:10:00 Paula Rowe [facility] ACTIVATED PARTIAL 2022-05-13 04:10:00 Paula Rowe [facility] RAPID INFLUENZA A/B 2022-05-13 04:10:00 Paula Rowe [facility] N-TERMINAL PRO-BNP 2022-05-13 04:10:00 Paula Rowe [facility] COVID-19 (ID NOW RAPID 2022-05-13 04:10:00 Paula Rowe [facility] TESTING) [facility] [place] AC PANEL 21 + LACTIC ACID 2022-05-02 06:08:00 [facility] 2022-05-02 05:52:00 Sanjay Henry Janel [facility] URINALYSIS 2022-05-02 05:44:00 Sanjay Henry [facility] MAGNESIUM 2022-05-02 05:43:00 Sanjay Henry Janel [facility] TROPONIN I 2022-05-02 05:43:00 Sanjay Henry Janel [facility] COMP. METABOLIC PANEL 2022-05-02 05:43:00 Sanjay Henry [facility] ([id number]) [facility] CBC WITH DIFF 2022-05-02 05:43:00 Sanjay Henry Janel [facility] N-TERMINAL PRO-BNP 2022-05-02 05:43:00 Sanjay Henry [facility] CONSENT/REFUSAL FOR 2022-05-02 05:16:55 Doctor Unassigned, [facility] DIAGNOSIS AND TREATMENT [facility] COVID-19 (ID NOW RAPID 2022-04-29 03:43:00 Paula Rowe [facility] TESTING) [facility] CT ABDOMEN PELVIS WO 2022-04-29 03:38:06 Paula Rowe [facility] CONTRAST [facility] XR CHEST 1 VW 2022-04-29 03:23:24 Paula Rowe [facility] TROPONIN I 2022-04-29 02:49:00 Paula Rowe [facility] COMP. METABOLIC PANEL 2022-04-29 02:49:00 Paula Rowe [facility] ([id number]) [facility] CBC WITH DIFF 2022-04-29 02:49:00 Paula Rowe [facility] PROTHROMBIN TIME / INR 2022-04-29 02:49:00 Paula Rowe [facility] ACTIVATED PARTIAL 2022-04-29 02:49:00 Paula Rowe [facility] THRMPLAS SHREYA [facility] N-TERMINAL PRO-BNP 2022-04-29 02:49:00 [facility]ATED) 2022-02-27 20:30:00 Yasmine Kevin Rinaldi [facility] POCT GLUCOSE (AUTOMATED) 2022-02-27 16:16:00 Yasmine Kevin Rinaldi [facility] POCT GLUCOSE (AUTOMATED) 2022-02-27 12:27:00 Yasmine Kevin [facility] POCT GLUCOSE (AUTOMATED) 2022-02-26 21:42:00 Yasmine Kevin Rinaldi [facility] POCT GLUCOSE (AUTOMATED) 2022-02-26 17:49:00 Yasmine Kevin [facility] POCT GLUCOSE (AUTOMATED) 2022-02-26 14:27:00 Yasmine Kevin [facility] MAGNESIUM 2022-02-26 08:50:00 Michael [facility] BASIC METABOLIC PANEL 2022-02-26 08:50:00 Michael [facility] (NA, K, CL, CO2, GLUCOSE, Medica l Branch BUN, CREATININE, CA) POCT GLUCOSE (AUTOMATED) 2022-02-26 01:26:00 Yasmine Kevin [facility] POCT GLUCOSE (AUTOMATED) 2022-02-25 20:40:00 Yasmine Kevin [facility] POCT GLUCOSE (AUTOMATED) 2022-02-25 16:39:00 Yasmine Kevin [facility] ACUTE CARE ARTERIAL BLOOD 2022-02-25 14:04:00 [facility]) 2022-02-25 12:51:00 Yasmine Kevin [facility] PHOSPHORUS 2022-02-25 11:01:00 Lisa Fritz [facility] MAGNESIUM 2022-02-25 11:01:00 Lam [facility] BASIC METABOLIC PANEL 2022-02-25 11:01:00 Lisa Fritz [facility] (NA, K, CL, CO2, GLUCOSE, Medica l Branch BUN, CREATININE, CA) POCT GLUCOSE (AUTOMATED) 2022-02-25 01:24:00 Yasmine Kevin [facility] POCT GLUCOSE (AUTOMATED) 2022-02-24 20:49:00 Yasmine Kevin [facility] POCT GLUCOSE (AUTOMATED) 2022-02-24 16:52:00 Yasmine Kevin Rinaldi [facility] ACUTE CARE ARTERIAL BLOOD 2022-02-24 16:42:[address] [facility] POCT GLUCOSE (AUTOMATED) 2022-02-24 13:24:00 Yasmine Kevin [facility] TROPONIN I 2022-02-24 12:34:00 Lam [facility] BASIC METABOLIC PANEL 2022-02-24 12:34:00 [facility] ([facility], K, CL, CO2, GLUCOSE, Medica l Branch BUN, CREATININE, CA) HB ECG ROUTINE & RHYTHM 2022-02-24 12:23:17 Lam [facility] LACTIC ACID WHOLE BLOOD 2022-02-24 03:13:00 Britt Gabriel [facility] POCT GLUCOSE (AUTOMATED) 2022-02-24 01:20:00 Yasmine Kevin [facility] XR KUB 2022-02-24 00:31:00 Dana [facility] POCT GLUCOSE (AUTOMATED) 2022-02-23 22:34:00 Yasmine Kevin [facility] POCT GLUCOSE (AUTOMATED) 2022-02-23 21:46:00 Yasmine Kevin [facility] XR CHEST 1 VW 2022-02-23 19:26:00 Dana [facility] AC PANEL 20 + LACTIC ACID 2022-02-23 18:02:[address] [facility] [place] POCT GLUCOSE (AUTOMATED) 2022-02-23 17:19:00 Yasmine Kevin [facility] POCT GLUCOSE (AUTOMATED) 2022-02-23 13:22:00 Yasmine Kevin [facility] POCT GLUCOSE (AUTOMATED) 2022-02-22 21:55:00 Kvein Lebron [facility] POCT GLUCOSE (AUTOMATED) 2022-02-22 18:22:00 Kevin Lebron [facility] CBC WITH DIFF 2022-02-22 11:32:00 Joshua [facility] MAGNESIUM 2022-02-22 11:31:00 Joshua [facility] BASIC METABOLIC PANEL 2022-02-22 11:31:00 Joshua [facility] (NA, K, CL, CO2, GLUCOSE, Medica l Branch BUN, CREATININE, CA) XR CHEST 1 VW 2022-02-22 09:34:00 Joshua [facility] POCT GLUCOSE (AUTOMATED) 2022-02-22 01:20:00 Kevin Lebron [facility] POCT GLUCOSE (AUTOMATED) 2022-02-21 21:53:00 Kevin Lebron [facility] CBC WITHOUT DIFF 2022-02-21 15:46:00 Britt Gabriel [facility] POCT GLUCOSE (AUTOMATED) 2022-02-21 14:26:00 Kevin Lebron [facility] URINALYSIS 2022-02-21 08:27:00 Joshua [facility] URINE CULTURE 2022-02-21 08:27:00 Joshua [facility] MAGNESIUM 2022-02-21 08:06:00 Joshua [facility] BASIC METABOLIC PANEL 2022-02-21 08:06:00 [facility] ([facility], K, CL, CO2, GLUCOSE, Medica l Branch BUN, CREATININE, CA) CBC WITH DIFF 2022-02-21 08:06:00 Joshua [facility] MRSA / MSSA SCREEN BY 2022-02-21 03:21:00 Chase Ny [facility] PCR, [facility] POCT GLUCOSE (AUTOMATED) 2022-02-21 02:31:00 Kevin Lebron [facility] BLOOD CULTURE SCREEN 2022-02-21 01:58:00 Candi Lewis [facility] BLOOD CULTURE SCREEN 2022-02-21 01:49:00 Candi Lewis [facility] XR CHEST 1 VW 2022-02-20 23:44:00 Kevin [facility] ACUTE CARE ARTERIAL BLOOD 2022-02-20 23:23:00 [facility] XR CHEST 1 VW 2022-02-20 20:39:00 Paula Rowe [facility] TROPONIN I 2022-02-20 20:17:00 Paula Rowe [facility] COMP. METABOLIC PANEL 2022-02-20 20:17:00 Paula Rowe [facility] ([id number]) [facility] [place] CBC WITH DIFF 2022-02-20 20:17:00 Jae Paula [facility] PROTHROMBIN TIME / INR 2022-02-20 20:17:00 Paula Rowe [facility] ACTIVATED PARTIAL 2022-02-20 20:17:00 [facility] N-TERMINAL PRO-BNP 2022-02-20 20:17:00 Paula Rowe [facility] COVID-19 (ID NOW RAPID 2022-02-20 20:07:00 Paula Rowe [facility] TESTING) Medical [facility] LAB ONLY COVID 2022-02-20 20:07:00 Paula Rowe [facility] INTERPRETATION [facility] HB ECG ROUTINE & RHYTHM 2022-02-20 20:06:[address] [facility] STRIP Medical Branch CONSENT/REFUSAL FOR 2022-02-20 19:58:43 Doctor Arturo [facility] DIAGNOSIS AND TREATMENT [facility] [place] EMERGENCY DEPARTMENT 2022-02-20 05:01:00 Doctor Arturo, [facility] DOCUMENTS [facility] [place] HOSPITAL ADMISSION 2022-02-20 05:01:00 Doctor Arturo [facility] Name Medical Branch POCT GLUCOSE (AUTOMATED) 2022-02-17 21:44:00 Valeriano Pantoja [facility] POCT GLUCOSE (AUTOMATED) 2022-02-17 17:09:00 Terminella, Valeriano [facility] POCT GLUCOSE (AUTOMATED) 2022-02-17 13:06:00 Terminella, Valeriano [facility] XR CHEST 1 VW 2022-02-17 11:51:08 Nathaniel [facility] MAGNESIUM 2022-02-17 09:13:00 Nathaniel [facility] BASIC METABOLIC PANEL 2022-02-17 09:13:00 Kayla Armstrong [facility] (NA, K, CL, CO2, GLUCOSE, Medica l Branch BUN, CREATININE, CA) CBC WITH DIFF 2022-02-17 09:13:00 Nathaniel [facility] ACUTE CARE ARTERIAL BLOOD 2022-02-17 09:02:00 Kayla Armstrong [facility] POCT GLUCOSE (AUTOMATED) 2022-02-17 00:49:00 Terminella, Valeriano [facility] XR CHEST 1 VW 2022-02-16 23:15:00 [facility] GLUCOSE (AUTOMATED) 2022-02-16 21:46:00 Terminella, Valeriano [facility] POCT GLUCOSE (AUTOMATED) 2022-02-16 16:59:00 Terminella, Valeriano [facility] POCT GLUCOSE (AUTOMATED) 2022-02-16 13:05:00 Terminella, Valeriano [facility] POCT GLUCOSE (AUTOMATED) 2022-02-16 08:32:00 Terminella, Valeriano [facility] POCT GLUCOSE (AUTOMATED) 2022-02-16 04:29:00 Terminella, Valeriano [facility] POCT GLUCOSE (AUTOMATED) 2022-02-16 00:39:00 Terminella, Valeriano [facility] POCT GLUCOSE (AUTOMATED) 2022-02-15 21:14:00 Terminella, Valeriano [facility] POCT GLUCOSE (AUTOMATED) 2022-02-15 16:58:00 Terminella, Valeriano [facility] POCT GLUCOSE (AUTOMATED) 2022-02-15 12:45:00 Terminella, Valeriano [facility] POCT GLUCOSE (AUTOMATED) 2022-02-15 08:02:00 Terminella, Valeriano [facility] MAGNESIUM 2022-02-15 07:56:00 Roberto Murdock [facility] COMP. METABOLIC PANEL 2022-02-15 07:56:00 Roberto Murdock [facility] ([id number]) [facility] CBC WITHOUT DIFF 2022-02-15 07:56:00 Roberto Murdock [facility] POCT GLUCOSE (AUTOMATED) 2022-02-15 04:15:00 Terminella, Valeriano U niversity [facility] POCT GLUCOSE (AUTOMATED) 2022-02-15 00:48:00 Terminella, Valeriano U niversity [facility] POCT GLUCOSE (AUTOMATED) 2022-02-14 21:22:00 Terminella, Valeriano U niversity [facility] POCT GLUCOSE (AUTOMATED) 2022-02-14 19:37:00 Terminella, Valeriano U niversity [facility] POCT GLUCOSE (AUTOMATED) 2022-02-14 16:28:00 Terminella, Valeriano U niversity [facility] POCT GLUCOSE (AUTOMATED) 2022-02-14 14:17:00 Terminella, Valeriano U niversity [facility] XR CHEST 1 VW 2022-02-14 11:42:00 Kayla Armstrong [facility] MAGNESIUM 2022-02-14 09:56:00 Kayla Armstrong [facility] COMP. METABOLIC PANEL 2022-02-14 09:56:00 Kayla Armstrong [facility] ([id number]) [facility] CBC WITH DIFF 2022-02-14 09:56:00 Kayla Armstrong [facility] ACUTE CARE ARTERIAL BLOOD 2022-02-14 08:33:00 Kayla Armstrong [facility] POCT GLUCOSE (AUTOMATED) 2022-02-14 08:17:00 Terminella, Valeriano [facility] POCT GLUCOSE (AUTOMATED) 2022-02-14 04:25:00 [facility]ella, [facility] 2022-02-14 04:11:18 Doctor Unassigned, [facility] [place] [facility] POCT GLUCOSE (AUTOMATED) 2022-02-14 00:55:00 [facility]) 2022-02-13 22:29:00 Terminella, [facility] PO[facility]SE (AUTOMATED) 2022-02-13 17:29:00 Terminella, [facility] PO[facility]SE (AUTOMATED) 2022-02-13 15:52:00 TerminellaYvonneValeriano [facility] C[facility] ARTERIAL BLOOD 2022-02-13 14:22:00 [facility] POCT GLUCOSE (AUTOMATED) 2022-02-13 14:07:00 TerminellaYvonneValeriano U [facility] DUPLEX VENOUS LEGS 2022-02-13 14:00:43 Roberto Murdock [facility] BILATERAL - BY VASCULAR [facility] LAB POCT GLUCOSE (AUTOMATED) 2022-02-13 12:45:00 Terminella, [facility]SE (AUTOMATED) 2022-02-13 11:43:00 TerminJanuary alstoni [facility] 2022-02-13 10:33:00 [facility]OLIC PANEL 2022-02-13 10:33:00 Roberto Murdock Un [facility] (NA, K, CL, CO2, GLUCOSE, Medica l Branch BUN, CREATININE, CA) CBC WITH DIFF 2022-02-13 10:33:00 Valeriano Pantoja [facility] POCT GLUCOSE (AUTOMATED) 2022-02-13 09:42:00 Terminella, [facility] PO[facility]UCOSE (AUTOMATED) 2022-02-13 08:46:00 Terminella, Valeriano [facility] POCT GLUCOSE (AUTOMATED) 2022-02-13 07:59:00 Terminella, Valeriano [facility] POCT GLUCOSE (AUTOMATED) 2022-02-13 06:56:00 Terminella, Valeriano [facility] POCT GLUCOSE (AUTOMATED) 2022-02-13 05:57:00 Terminella, Valeriano [facility] POCT GLUCOSE (AUTOMATED) 2022-02-13 03:36:00 Terminella, Valeriano [facility] BASIC METABOLIC PANEL 2022-02-13 03:30:00 Murdock, Roberto [facility] [place] (NA, K, CL, CO2, GLUCOSE, Medica l Branch BUN, CREATININE, CA) POCT GLUCOSE (AUTOMATED) 2022-02-13 02:46:00 Terminella, Valeriano [facility] POCT GLUCOSE (AUTOMATED) 2022-02-13 01:37:00 Terminella, Valeriano [facility] POCT GLUCOSE (AUTOMATED) 2022-02-13 00:34:00 Terminella, Valeriano [facility] POCT GLUCOSE (AUTOMATED) 2022-02-12 23:25:00 Terminella, Valeriano [facility] POCT GLUCOSE (AUTOMATED) 2022-02-12 22:20:00 Terminella, Valeriano [facility] POCT GLUCOSE (AUTOMATED) 2022-02-12 21:02:00 Terminella, Valeriano [facility] BASIC METABOLIC PANEL 2022-02-12 20:39:00 MurdockAshleyo [facility] [place] (NA, K, CL, CO2, GLUCOSE, Medica l Branch BUN, CREATININE, CA) POCT GLUCOSE (AUTOMATED) 2022-02-12 20:02:00 Terminella, Valeriano [facility] POCT GLUCOSE (AUTOMATED) 2022-02-12 19:06:00 Terminella, Valeriano [facility] POCT GLUCOSE (AUTOMATED) 2022-02-12 18:09:00 Terminella, Valeriano U [facility] POCT GLUCOSE (AUTOMATED) 2022-02-12 17:17:00 Terminella, Valeriano U [facility] SPUTUM CULTURE 2022-02-12 16:29:00 Termingamaliel [facility] BASIC METABOLIC PANEL 2022-02-12 16:16:00 Kayla Armstrong [facility] (NA, K, CL, CO2, GLUCOSE, Medica l Branch BUN, CREATININE, CA) POCT GLUCOSE (AUTOMATED) 2022-02-12 16:11:00 Terminella, Valeriano U [facility] POCT GLUCOSE (AUTOMATED) 2022-02-12 14:14:00 Terminella, Valeriano U [facility] POCT GLUCOSE (AUTOMATED) 2022-02-12 13:17:00 TerminellaYvonneValeriano U [facility] POCT GLUCOSE (AUTOMATED) 2022-02-12 12:42:00 TerminellaYvonneValeriano U [facility] BASIC METABOLIC PANEL 2022-02-12 12:18:00 [facility] ([facility], K, CL, CO2, GLUCOSE, Medica l Branch BUN, CREATININE, CA) POCT GLUCOSE (AUTOMATED) 2022-02-12 12:17:00 Terminella, [facility]UCOSE (AUTOMATED) 2022-02-12 11:15:00 TerminellaYvonneValeriano U [facility] POCT GLUCOSE (AUTOMATED) 2022-02-12 10:12:00 Terminella [facility] PO[facility] GLUCOSE (AUTOMATED) 2022-02-12 09:12:00 [facility] Valeriano U [facility] MRSA / MSSA SCREEN BY 2022-02-12 08:23:00 [facility], [facility] PCR, [facility] AC PANEL 20 + LACTIC ACID 2022-02-12 08:22:00 Scarlett [facility] PHOSPHORUS 2022-02-12 08:21:00 Termingamaliel [facility] MAGNESIUM 2022-02-12 08:21:00 [facility] OSMOLALITY, SERUM OR 2022-02-12 08:21:00 [facility] PLASMA [facility] BETA HYDROXY-BUTYRATE 2022-02-12 08:21:00 [facility] BASIC METABOLIC PANEL 2022-02-12 08:21:00 [facility] (NA, K, CL, CO2, GLUCOSE, Medica l Branch BUN, CREATININE, CA) CBC WITH DIFF 2022-02-12 08:21:00 [facility] GLYCOSYLATED HEMOGLOBIN 2022-02-12 08:21:00 [facility] (A1C) [facility] POCT GLUCOSE (AUTOMATED) 2022-02-12 04:53:00 Paula Rowe [facility] URINE DRUG (IMMUNOASSAY) 2022-02-12 04:24:00 Paula Rowe [facility] DRUG [facility] n[facility] SCREEN W/O REFLEX URINALYSIS 2022-02-12 04:23:00 Paula Rowe [facility] POCT GLUCOSE (AUTOMATED) 2022-02-12 04:12:00 Paula Rowe [facility] CT CHEST PULMONARY 2022-02-12 02:41:40 Paula Rowe [facility] ANGIOGRAM [facility] [place] CT ABDOMEN PELVIS W 2022-02-12 02:39:36 Paula Rowe [facility] CONTRAST [facility] CT HEAD WO CONTRAST 2022-02-12 02:39:36 Paula Rowe [facility] XR CHEST 1 VW 2022-02-12 02:08:38 Paula Rowe [facility] AC PANEL 20 + LACTIC ACID 2022-02-12 01:59:00 Paula Rowe [facility] AMMONIA, PLASMA 2022-02-12 01:18:00 Paula Rowe [facility] BLOOD CULTURE SCREEN 2022-02-12 01:16:00 Paula Rowe [facility] COVID-19 (ID NOW RAPID 2022-02-12 01:16:00 Paula Rowe [facility] TESTING) [facility] LAB ONLY COVID 2022-02-12 01:16:00 Paula Rowe [facility] INTERPRETATION [facility] BLOOD CULTURE SCREEN 2022-02-12 01:12:00 Paula Rowe [facility] TROPONIN I 2022-02-12 01:12:00 Paula Rowe [facility] FREE T4 2022-02-12 01:12:00 Paula Rowe [facility] THYROID STIMULATING 2022-02-12 01:12:00 Paula Rowe [facility] HORMONE [facility] COMP. METABOLIC PANEL 2022-02-12 01:12:00 Paula Rowe [facility] ([id number]) Medical Branch ETHANOL 2022-02-12 01:12:00 Paula Rowe [facility] CBC WITH DIFF 2022-02-12 01:12:00 Paula Rowe [facility] PROTHROMBIN TIME / INR 2022-02-12 01:12:00 Paula Rowe [facility] ACTIVATED PARTIAL 2022-02-12 01:12:00 Paula Roew [facility] THRMPLAS SHREYA [facility] N-TERMINAL PRO-BNP 2022-02-12 01:12:00 [facility] 2022-02-12 01:06:16 Doctor Unassigned, [facility] [place] POCT GLUCOSE (AUTOMATED) 2022-02-12 00:57:00 Paula Rowe [facility] ASSIGNMENT OF BENEFITS 2022-02-12 00:53:44 Doctor Unassigned, [facility] [place] CONSENT/REFUSAL FOR 2022-02-12 00:53:30 Doctor Unassigned, [facility] DIAGNOSIS AND TREATMENT [place] [facility] [place] EMERGENCY DEPARTMENT 2022-02-11 05:01:00 Doctor Unassigned, [facility] DOCUMENTS [place] [facility] [place] POCT GLUCOSE (AUTOMATED) 2022-01-31 16:09:00 Jonas Hernandez [facility] POCT GLUCOSE (AUTOMATED) 2022-01-31 12:37:00 Jonas Hernandez [facility] PHOSPHORUS 2022-01-31 09:02:00 Luz Maria [facility] MAGNESIUM 2022-01-31 09:02:00 Luz Maria [facility] BASIC METABOLIC PANEL 2022-01-31 09:02:00 Luz Maria [facility] (NA, K, CL, CO2, GLUCOSE, Medica l Branch BUN, CREATININE, CA) ACUTE CARE VENOUS BLOOD 2022-01-31 09:02:[address] [facility] N-TERMINAL PRO-BNP 2022-01-31 09:02:[address] [facility] POCT GLUCOSE (AUTOMATED) 2022-01-30 21:20:00 Jonas Hernandez [facility] POCT GLUCOSE (AUTOMATED) 2022-01-30 16:58:00 Jonas Hernandez [facility] POCT GLUCOSE (AUTOMATED) 2022-01-30 13:58:00 Jonas Hernandez [employer] [facility] POCT GLUCOSE (AUTOMATED) 2022-01-30 13:11:00 Jonas Hernandez [facility] COMP. METABOLIC PANEL 2022-01-30 09:22:00 Jonas Hernandez [facility] ([id number]) [facility] CBC WITH DIFF 2022-01-30 09:22:00 Luz Maria [facility] N-TERMINAL PRO-BNP 2022-01-30 09:22:00 Jonas Hernandez [facility] ACUTE CARE VENOUS BLOOD 2022-01-30 09:21:00 Jonas Hernandez [facility] POCT GLUCOSE (AUTOMATED) 2022-01-30 03:01:00 Jonas Hernandez [facility] POCT GLUCOSE (AUTOMATED) 2022-01-29 21:03:00 Jonas Hernandez [facility] POCT GLUCOSE (AUTOMATED) 2022-01-29 16:05:00 Jonas Hernandez [facility] POCT GLUCOSE (AUTOMATED) 2022-01-29 15:13:00 Jonas Hernandez [facility] SPUTUM CULTURE 2022-01-29 13:06:00 Luz Maria [facility] POCT GLUCOSE (AUTOMATED) 2022-01-29 12:46:00 Jonas Hernandez [facility] PHOSPHORUS 2022-01-29 09:33:00 Markus Loera [facility] MAGNESIUM 2022-01-29 09:33:00 Jonas Hernandez [facility] COMP. METABOLIC PANEL 2022-01-29 09:33:00 Jonas Hernandez [facility] ([id number]) [facility] CBC WITH DIFF 2022-01-29 09:33:00 Luz Maria [facility] N-TERMINAL PRO-BNP 2022-01-29 09:33:00 Jonas Hernandez [facility] ACUTE CARE VENOUS BLOOD 2022-01-29 09:32:[address] [facility] GAS [facility] POCT GLUCOSE (AUTOMATED) 2022-01-29 02:58:00 Jonas Hernandez [facility] POCT GLUCOSE (AUTOMATED) 2022-01-29 01:35:00 Jonas Hernandez [facility] POCT GLUCOSE (AUTOMATED) 2022-01-28 21:20:00 Jonas Hernandez [facility] XR CHEST 1 VW 2022-01-28 18:54:18 Markus Loera [facility] PROTEIN CREAT RATIO URINE 2022-01-28 16:54:00 Dilan Coffey [facility] URIC ACID 2022-01-28 16:49:00 Dilan Coffey [facility] TROPONIN I 2022-01-28 16:49:00 Mary agus [facility] TRANSTHORACIC ECHO (TTE) 2022-01-28 15:37:00 Jonas Hernandez [facility] COMPLETE W/ CONTRAST [facility] DUPLEX VENOUS LEGS 2022-01-28 14:42:22 Jonas Hernandez [facility] BILATERAL - BY VASCULAR Medical Branch LAB POCT GLUCOSE (AUTOMATED) 2022-01-28 13:57:00 Jonas Hernandez [facility] POCT GLUCOSE (AUTOMATED) 2022-01-28 12:58:00 Jonas Hernandez [facility] TROPONIN I 2022-01-28 11:46:[address] [facility] IRON PANEL 2022-01-28 11:46:00 Jonas Hernandez [facility] SEDIMENTATION RATE 2022-01-28 11:46:00 Mary agus [facility] N-TERMINAL PRO-BNP 2022-01-28 11:46:[address] [facility] PHOSPHORUS 2022-01-28 11:45:00 Mary [facility] CREATINE KINASE 2022-01-28 11:45:00 Mary [facility] URIC ACID 2022-01-28 11:45:00 Mary [facility] MAGNESIUM 2022-01-28 11:45:00 Mary [facility] FERRITIN SERUM 2022-01-28 11:45:00 Mary [facility] VITAMIN B12, LEVEL 2022-01-28 11:45:00 Mary [facility] TROPONIN I 2022-01-28 11:45:00 Mary agus [facility] THYROID STIMULATING 2022-01-28 11:45:00 Jonas Hernandez [facility] HORMONE [facility] COMP. METABOLIC PANEL 2022-01-28 11:45:00 Jonas Hernandez [facility] ([id number]) [facility] LIPID PANEL ([id number])(TOTAL 2022-01-28 11:45:00 Jonas Hernandez [facility] CHOLESTEROL, [facility] TRIGLYCERIDES, HDL) ACUTE CARE VENOUS BLOOD 2022-01-28 11:45:[address] [facility] GAS [facility] N-TERMINAL PRO-BNP 2022-01-28 11:45:00 Mary, [facility] VITAMIN D, 25-OH 2022-01-28 11:45:00 Mary [facility] PROCALCITONIN 2022-01-28 11:45:00 Mary agus [facility] OSMOLALITY URINE 2022-01-28 08:55:00 Mary [facility] URINALYSIS 2022-01-28 08:55:00 Mary [facility] URINE CULTURE 2022-01-28 08:55:00 Mary [facility] UREA NITROGEN, URINE 2022-01-28 08:55:00 Mary [facility] SODIUM, URINE RANDOM 2022-01-28 08:55:00 Mary [facility] PROTEIN CREAT RATIO URINE 2022-01-28 08:55:00 [facility] 2022-01-28 02:23:00 Paula Rowe [facility] TROPONIN I 2022-01-28 02:09:00 Jae Paula [facility] COMP. METABOLIC PANEL 2022-01-28 02:09:00 Paula Rowe [facility] ([id number]) [facility] CBC WITH DIFF 2022-01-28 02:09:00 Paula Rowe [facility] GLYCOSYLATED HEMOGLOBIN 2022-01-28 02:09:[address] [facility] (A1C) [facility] PROTHROMBIN TIME / INR 2022-01-28 02:09:00 Paula Rowe [facility] ACTIVATED PARTIAL 2022-01-28 02:09:00 Paula Rowe [facility] THRMPLAS SHREYA [facility] N-TERMINAL PRO-BNP 2022-01-28 02:09:00 Paula Rowe [facility] COVID-19 (ID NOW RAPID 2022-01-28 02:09:00 Paula Rowe [facility] TESTING) [facility] [place] LAB ONLY COVID 2022-01-28 02:09:00 Paula Rowe [facility] HB ECG ROUTINE & RHYTHM 2022-01-28 01:47:33 Paula Rowe [facility] NOTICE OF PRIVACY 2022-01-28 01:38:34 Doctor Unassigned, [facility] PRACTICES [place] [facility] CONSENT/REFUSAL FOR 2022-01-28 01:37:59 Doctor Unassigned, [facility] DIAGNOSIS AND TREATMENT [place] [facility] COMP. METABOLIC PANEL 2022-01-12 23:24:00 Joslyn Ruelas [facility] ([id number]) [facility] CBC WITH DIFF 2022-01-12 23:24:00 Joslyn Ruelas [facility] XR CHEST 1 VW 2022-01-12 23:20:00 Joslyn Ruelas [facility] AC PANEL 21 + LACTIC ACID 2022-01-12 23:14:00 Joslyn Ruelas [facility] POCT GLUCOSE (AUTOMATED) 2022-01-12 17:48:00 [place], [facility] POCT GLUCOSE (AUTOMATED) 2022-01-12 13:22:00 [place], [facility] POCT GLUCOSE (AUTOMATED) 2022-01-12 05:51:00 [place], [facility] POCT GLUCOSE (AUTOMATED) 2022-01-11 23:02:00 [place], [facility] POCT GLUCOSE (AUTOMATED) 2022-01-11 17:20:00 [place], Cory [facility] POCT GLUCOSE (AUTOMATED) 2022-01-11 13:08:00 [place], [facility] POCT GLUCOSE (AUTOMATED) 2022-01-11 11:35:00 [place], Cory [facility] MAGNESIUM 2022-01-11 10:46:00 Dawood Alva [facility] BASIC METABOLIC PANEL 2022-01-11 10:46:00 Dawood Alva [facility] (NA, K, CL, CO2, GLUCOSE, Medica l Branch BUN, CREATININE, CA) CBC WITH DIFF 2022-01-11 10:46:00 Dawood Alva [facility] POCT GLUCOSE (AUTOMATED) 2022-01-11 04:13:00 [place], Cory Uni versity [facility] POCT GLUCOSE (AUTOMATED) 2022-01-10 22:36:00 [place], Cory Uni versity [facility] POCT GLUCOSE (AUTOMATED) 2022-01-10 16:44:00 [place], Cory Uni versity [facility] POCT GLUCOSE (AUTOMATED) 2022-01-10 13:02:00 [place], Cory Rinaldi versity [facility] POCT GLUCOSE (AUTOMATED) 2022-01-10 10:44:00 [place], Cory Rinaldi versity [facility] MAGNESIUM 2022-01-10 07:19:00 [facility]OL[facility] PANEL 2022-01-10 07:19:00 [facility] ([facility], K, CL, CO2, GLUCOSE, Medica l Branch BUN, CREATININE, CA) CBC WITH DIFF 2022-01-10 07:19:00 [facility] PO[facility]UCOSE (AUTOMATED) 2022-01-10 04:48:00 [place], Cory [facility] PO[facility]SE ([facility]OMATED) 2022-01-09 17:23:00 [place], Cory [facility] PO[facility]SE (AUTOMATED) 2022-01-09 12:46:00 [place], Cory [facility] BASIC METABOLIC PANEL 2022-01-09 10:50:00 Artie Maury [facility] (NA, K, CL, CO2, GLUCOSE, Medica l Branch BUN, CREATININE, CA) CBC WITH DIFF 2022-01-09 10:50:00 Artie [facility] POCT GLUCOSE (AUTOMATED) 2022-01-09 10:42:00 [place], Cory [facility] PO[facility]SE (AUTOMATED) 2022-01-09 04:21:00 [place], Coyr Rinaldi versity [facility] POCT GLUCOSE (AUTOMATED) 2022-01-08 23:17:00 [place], Cory Uni versity [facility] POCT GLUCOSE (AUTOMATED) 2022-01-08 18:14:00 [place], Cory Rinaldi versity [facility] POCT GLUCOSE (AUTOMATED) 2022-01-08 13:34:00 [place], Cory [facility] POCT GLUCOSE (AUTOMATED) 2022-01-08 10:57:00 [place], Cory [facility] BASIC METABOLIC PANEL 2022-01-08 10:48:00 Artie Maury [facility] (NA, K, CL, CO2, GLUCOSE, Medica l Branch BUN, CREATININE, CA) CBC WITH DIFF 2022-01-08 10:48:00 Artie [facility] POCT GLUCOSE (AUTOMATED) 2022-01-08 05:43:00 [place], Cory [facility] POCT GLUCOSE (AUTOMATED) 2022-01-07 21:25:00 [place], Cory [facility] POCT GLUCOSE (AUTOMATED) 2022-01-07 16:34:00 [place], Cory [facility] ABG+COOX+NA+K+GLU+CA2+ 2022-01-07 15:40:00 u Shahla Stack [facility] POCT GLUCOSE (AUTOMATED) 2022-01-07 13:07:00 [place], Cory [facility] BASIC METABOLIC PANEL 2022-01-07 07:14:00 Artie Maury [facility] (NA, K, CL, CO2, GLUCOSE, Medica l Branch BUN, CREATININE, CA) CBC WITH DIFF 2022-01-07 07:14:00 Artie [facility] POCT GLUCOSE (AUTOMATED) 2022-01-07 05:53:00 [place], Cory [facility] POCT GLUCOSE (AUTOMATED) 2022-01-06 23:35:00 [place], Cory Nimco [facility] POCT GLUCOSE (AUTOMATED) 2022-01-06 22:16:00 [place], Cory [facility] XR CHEST 1 VW 2022-01-06 21:37:00 Abu Shahla Stack [facility] POCT GLUCOSE (AUTOMATED) 2022-01-06 17:02:00 [place], Cory Nimco [facility] POCT GLUCOSE (AUTOMATED) 2022-01-06 13:41:00 [place], Cory [facility] PHOSPHORUS 2022-01-06 09:21:00 [facility] MAGNESIUM 2022-01-06 09:21:00 Ahmed, [facility] BASIC METABOLIC PANEL 2022-01-06 09:21:00 [facility] ([facility], K, CL, CO2, GLUCOSE, Medica l Branch BUN, CREATININE, CA) CBC WITH DIFF 2022-01-06 09:21:00 AhmedDawood [facility] POCT GLUCOSE (AUTOMATED) 2022-01-05 20:44:00 [place], Cory [facility] XR ABDOMEN 1 VW 2022-01-05 17:55:00 Meño Stack [facility] POCT GLUCOSE (AUTOMATED) 2022-01-05 16:54:00 [place], Cory [facility] POCT GLUCOSE (AUTOMATED) 2022-01-05 13:09:00 MoulinCory Nimco [facility] PHOSPHORUS 2022-01-05 09:06:00 MoulinCory [facility] MAGNESIUM 2022-01-05 09:06:00 MoulinCory [facility] BASIC METABOLIC PANEL 2022-01-05 09:06:00 Cory Cee [facility] (NA, K, CL, CO2, GLUCOSE, Medica l Branch BUN, CREATININE, CA) CBC WITH DIFF 2022-01-05 09:06:00 MoulinCory [facility] POCT GLUCOSE (AUTOMATED) 2022-01-05 05:07:00 [place], Cory [facility] POCT GLUCOSE (AUTOMATED) 2022-01-04 22:10:00 [place], Cory [facility] POCT GLUCOSE (AUTOMATED) 2022-01-04 17:14:00 [place], Cory Uni [facility] POCT GLUCOSE (AUTOMATED) 2022-01-04 11:15:00 MoulinCory [facility] PHOSPHORUS 2022-01-04 10:42:00 Jenifer majo [facility] MAGNESIUM 2022-01-04 10:42:00 Jenifer [facility] BASIC METABOLIC PANEL 2022-01-04 10:42:00 [facility] ([facility], K, CL, CO2, GLUCOSE, Medica l Branch BUN, CREATININE, CA) VANCOMYCIN TROUGH 2022-01-04 10:42:00 [place], Cory [facility] CBC WITH DIFF 2022-01-04 10:42:00 Jenifer majo [facility] CT ABDOMEN PELVIS W 2022-01-04 09:03:00 Abu Atherabbi, Shahla [facility] POCT GLUCOSE (AUTOMATED) 2022-01-04 06:25:00 [place], Cory [facility] POCT GLUCOSE (AUTOMATED) 2022-01-03 21:21:00 [place], Cory [facility] XR CHEST 1 VW 2022-01-03 20:48:16 Abu Phillip [facility] [facility] POCT GLUCOSE (AUTOMATED) 2022-01-03 16:50:00 Moulin, Cory [facility] POCT GLUCOSE (AUTOMATED) 2022-01-03 12:59:00 [place]oulin, Cory [facility] POCT GLUCOSE (AUTOMATED) 2022-01-03 10:17:00 [place]oulin, Cory [facility] AC PANEL 20 + LACTIC ACID 2022-01-03 10:15:[address] [facility] [place] [place] MAGNESIUM 2022-01-03 08:54:00 MoulinCory [facility] BASIC METABOLIC PANEL 2022-01-03 08:54:00 MoCory lucio [facility] (NA, K, CL, CO2, GLUCOSE, Medica l Branch BUN, CREATININE, CA) CBC WITH DIFF 2022-01-03 08:54:00 [place]oulin, Cory [facility] POCT GLUCOSE (AUTOMATED) 2022-01-03 04:48:00 [place]oulin, Cory [facility] POCT GLUCOSE (AUTOMATED) 2022-01-02 22:15:00 [place]oulin, Cory [facility] SPUTUM CULTURE 2022-01-02 19:39:00 [facility] XR KUB 2022-01-02 18:17:54 Abu JoeShahla go [facility] XR KUB 2022-01-02 17:07:05 Abu Joeabbi [facility] POCT GLUCOSE (AUTOMATED) 2022-01-02 16:26:00 Cory Cee [facility] CT HEAD WO CONTRAST 2022-01-02 15:49:23 Meño DiazShahla [facility] XR CHEST 1 VW 2022-01-02 13:45:16 Abu Joe [facility] AC PANEL 20 + LACTIC ACID 2022-01-02 12:37:00 Meño Stack [facility] POCT GLUCOSE (AUTOMATED) 2022-01-02 12:26:00 Cory Cee [facility] BASIC METABOLIC PANEL 2022-01-02 10:42:00 Cory Cee [facility] (NA, K, CL, CO2, GLUCOSE, Medica l Branch BUN, CREATININE, CA) BLOOD CULTURE SCREEN 2022-01-02 10:41:00 Cory Cee [facility] CBC WITH DIFF 2022-01-02 10:41:00 Cory Cee [facility] GLYCOSYLATED HEMOGLOBIN 2022-01-02 10:41:00 Meño DiazShahla [facility] (A1C) [facility] BLOOD CULTURE SCREEN 2022-01-02 10:40:00 MoCory lucio [facility] RESPIRATORY CULTURE 2022-01-02 10:40:00 MoCory lucio [facility] URINE CULTURE 2022-01-02 10:39:00 MoCroy lucio [facility] MRSA / MSSA SCREEN BY 2022-01-02 10:39:00 Cory Cee [facility] PCR, [facility] ABG+COOX+NA+K+GLU+CA2+ 2022-01-02 10:17:00 Cory Cee [facility] AC PANEL 21 + LACTIC ACID 2022-01-02 03:53:00 Janis Valencia [facility] XR CHEST 1 VW 2022-01-02 02:59:00 Janis Valencia [facility] URINALYSIS 2022-01-02 02:58:00 Janis Valencia [facility] LACTIC ACID WHOLE BLOOD 2022-01-02 02:26:00 Janis Valencia [facility] AC PANEL 21 + LACTIC ACID 2022-01-02 02:26:00 Janis Valenica [facility] BLOOD CULTURE SCREEN 2022-01-02 02:25:00 Janis Valencia [facility] TROPONIN I 2022-01-02 02:25:00 Janis Valencia [facility] COMP. METABOLIC PANEL 2022-01-02 02:25:[address] [facility] ([id number]) [facility] CBC WITH DIFF 2022-01-02 02:25:00 Janis Valencia [facility] N-TERMINAL PRO-BNP 2022-01-02 02:25:00 Janis Valencia [facility] HB ECG ROUTINE & RHYTHM 2022-01-02 02:14:14 Janis Valencia [facility] HOSPITAL ADMISSION 2022-01-01 05:01:00 Doctor Unassigned, [facility] Reklaw [facility] XR CHEST 1 VW 2021-12-09 04:15:00 Duke Velazquez [facility] LIPASE 2021-12-09 03:52:00 Duke Velazquez [facility] TROPONIN I 2021-12-09 03:52:00 Duke Velazquez [facility] COMP. METABOLIC PANEL 2021-12-09 03:52:00 Duke Velazquez [facility] ([id number]) [facility] CBC WITH DIFF 2021-12-09 03:52:00 Duke Velazquez [facility] N-TERMINAL PRO-BNP 2021-12-09 03:52:00 Duke Velazquez [facility] CONSENT/REFUSAL FOR 2021-12-09 03:24:16 [facility] DIAGNOSIS AND TREATMENT Reklaw [facility] POCT GLUCOSE (AUTOMATED) 2021-09-23 17:13:00 Paula Rowe [facility] POCT GLUCOSE (AUTOMATED) 2021-09-23 13:53:00 Paula Rowe [facility] BASIC METABOLIC PANEL 2021-09-23 10:22:00 Laurie Wilkins [facility] (NA, K, CL, CO2, GLUCOSE, Medica l Branch BUN, CREATININE, CA) CBC WITHOUT DIFF 2021-09-23 10:22:00 Laurie Wilkins [facility] POCT GLUCOSE (AUTOMATED) 2021-09-23 10:12:00 Paula Rowe [facility] POCT GLUCOSE (AUTOMATED) 2021-09-23 05:38:00 Paula Rowe [facility] POCT GLUCOSE (AUTOMATED) 2021-09-23 02:14:00 Paula Rowe [facility] POCT GLUCOSE (AUTOMATED) 2021-09-22 22:20:00 Paula Rowe [facility] POCT GLUCOSE (AUTOMATED) 2021-09-22 19:52:00 Paula Rowe [facility] TRANSTHORACIC ECHO (TTE) 2021-09-22 18:44:47 Cabrera Armstrong [facility] COMPLETE W/ [facility]SE (AUTOMATED) 2021-09-22 18:07:00 Paula Rowe [facility] EKG-12 LEAD 2021-09-22 13:45:05 Paula Rowe o [facility] POCT GLUCOSE (AUTOMATED) 2021-09-22 13:20:00 Paula Rowe [facility] PNEUMOCOCCAL ANTIGEN 2021-09-22 12:39:00 Cabrera Armstrong [facility] MRSA / MSSA SCREEN BY 2021-09-22 12:34:00 [facility], [facility]IRAT[facility]EL BY PCR 2021-09-22 12:34:00 Nikos Pugh Nimco [facility] GALV ONLY - INFLUENZA A B 2021-09-22 12:33:00 NathanielAlbertomarcio [facility] RSV PCR [facility] Branch COVID-19 (MOLECULAR 2021-09-22 12:33:00 Cecilia Jones [facility] TESTING [facility] NUCLEIC ACID AMPLIFICATION) SPUTUM CULTURE 2021-09-22 12:30:00 Nathaniel [facility] AC PANEL 20 + LACTIC ACID 2021-09-22 12:16:00 Cabrera Armstrong [facility] PHOSPHORUS 2021-09-22 12:15:00 Nathaniel [facility] MAGNESIUM 2021-09-22 12:15:00 [facility]EL 2021-09-22 12:15:00 [facility] ([id number]) (ALB,T.PRO,BILI Medical Branch T,BU/BC,ALT,AST,ALK PHOS) BASIC METABOLIC PANEL 2021-09-22 12:15:00 [facility] (NA, K, CL, CO2, GLUCOSE, Medica l Branch BUN, CREATININE, CA) CBC WITH DIFF 2021-09-22 12:15:00 [facility] PROTHROMBIN TIME / INR 2021-09-22 12:15:00 Armstrong [facility] BLOOD CULTURE SCREEN 2021-09-22 12:13:00 Nathaniel [facility] AC PANEL 20 + LACTIC ACID 2021-09-22 06:41:00 Paula Rowe [facility] TROPONIN I 2021-09-22 06:36:00 Paula Rowe [facility] COMP. METABOLIC PANEL 2021-09-22 06:36:00 Paula Rowe [facility] ([id number]) Medical Branch CBC WITH DIFF 2021-09-22 06:36:00 Paula Rowe [facility] GLYCOSYLATED HEMOGLOBIN 2021-09-22 06:36:[address] [facility] (A1C) [facility] PROTHROMBIN TIME / INR 2021-09-22 06:36:00 Paula Rowe [facility] ACTIVATED PARTIAL 2021-09-22 06:36:00 Paula Rowe [facility] THRMPLAS SHREYA [facility] N-TERMINAL PRO-BNP 2021-09-22 06:36:[address] [facility] COVID-19 (ID NOW RAPID 2021-09-22 06:36:00 Paula Rowe [facility] TESTING) Medical Branch LAB ONLY COVID 2021-09-22 06:36:00 Paula Rowe [facility] INTERPRETATION [facility] XR CHEST 1 VW 2021-09-22 06:26:48 Paula Rowe [facility] HB ECG ROUTINE & RHYTHM 2021-09-22 06:17:39 Paula Rowe [facility] ADMISSION 2021-09-22 06:01:00 Doctor Arturo, [facility] [place] [facility] [place] CONSENT/REFUSAL FOR 2021-09-22 06:00:03 Doctor Arturo [facility] DIAGNOSIS AND TREATMENT [place] [facility] DME/SUPPLY JUSTIFICATION 2021-08-01 06:01:00 Doctor Arturo, [facility] Name [facility] Encounters Start End Encounter Admission Attending Care Care Encounter Source Date/Time Date/Time Type Type Clinicians Facility Department ID 2022-08-05 Emergency [facility] [id number] Univers 00:34:25 ity [facility] 2022-09-09 2022-09-09 Emergency [facility] [id number] Univers 06:30:00 08:46:00 JOSLYN shipman [facility] 2022-09-09 2022-09-09 Emergency [facility] 1.2.840.114 [id number] Univers 06:30:00 08:46:00 Joslyn BOYD 350.1.13.10 ity [facility] 4.2.7.2.686 [facility] [id number] [facility] 084 Branch 2022-08-12 2022-08-12 Transition [place] Arrieta 1.2.840.114 [id number] Univers 00:00:00 00:00:00 of Care Alessandra JEFFREY 350.1.13.10 i ty of [place] 4.2.7.2.686 [facility] [id number] [facility] 403 Branch 2022-08-05 2022-08-10 Inpatient U CARLOS [facility] [[email or web address] [place] [id number] Univers 00:39:00 17:00:00 COREY umberto [facility] 2022-08-05 2022-08-10 [facility] Jonas Hernandez [facility] [[email or web address]] 1.2.840.11 [id number] Univers 00:39:00 17:00:00 Encounter Carlos Corey DEB 350.1.13.10 ity [facility] 4.2.7.2.686 [facility] [id number] [place] 069820 [place] 2022-06-04 2022-06-04 Emergency X [facility] ERT [id number] Univers 20:54:00 23:53:00 GEN shipman [facility] 2022-06-04 2022-06-04 Emergency [facility] [id number] [id number] Univers 20:54:00 23:53:00 Gen BOYD 350.1.13.10 i ty of [facility] 4.2.7.2.686 [facility] [id number] [address] 2022-05-12 2022-05-13 Emergency [facility] ERT [id number] Univers 22:51:00 03:10:00 PAULA shipman [facility] 2022-05-12 2022-05-13 Emergency [facility] 1.2.330.537 [id number] Univers 22:51:00 03:10:00 Paula BOYD 350.1.13.10 i ty of [place] 4.2.7.2.686 [facility] [id number] [address] 2022-05-02 2022-05-02 Emergency X Sanjay HENRY [facility] [[email or web address] ERT [id number] Univers 00:17:00 02:29:00 umberto [facility] 2022-05-02 2022-05-02 Emergency Carl, K [facility] [[email or web address]] 1.2.840.114 [id number] Univers 00:17:00 02:29:00 Janel BOYD 350.1.13.10 i ty of [place].7.[place] [id number] [place] 069824 Branch 2022-04-28 2022-04-29 Emergency [facility] ERT [id number] Univers 21:41:00 00:50:00 PAULA ity of [facility] 2022-04-28 2022-04-29 Emergency [facility] [id number] [id number] Univers 21:41:00 00:50:00 Paula BOYD 350.1.13.10 i ty of [place] [id number] [place] 069824 Branch 2022-03-02 2022-03-02 Transition [place] 1.2.840.114 [id number] Univers 00:00:00 00:00:00 of Care Alessandra EMY 350.1.13.10 i ty [place]2.[place] [id number] [facility] 403 Branch 2022-02-20 2022-02-27 Inpatient X [facility] [id number] Univers 14:58:00 17:54:00 [facility] f [facility] 2022-02-20 2022-02-27 [facility] Paula Rowe 1.2.840.1 [id number] Univers 14:58:00 17:54:00 Encounter Kevin Lebron 350.1.13.10 [facility] 4.2.7.2. 686 [place] [id number] [place] 069826 Branch 2022-02-18 2022-02-18 Transition [place] 1.2.840.114 [id number] Univers 00:00:00 00:00:00 of Care Alessandra EMY 350.1.13.10 i [place] [id number] [facility] 403 Branch 2022-02-11 2022-02-17 Inpatient X SCARLETT [facility] [[email or web address] ROBLES [id number] Univers 19:55:00 18:10:00 VALERIANO ity [facility] 2022-02-11 2022-02-17 [facility] Paula Rowe [facility] [[email or web address]] 1.2.840.1 14 [id number] Univers 19:55:00 18:10:00 Encounter Valeriano Pantoja HEALTH 350.1.13.1 0 ity of [place] 4.2.7.2.686 [facility] [id number] [facility] 111 [facility] ([facility]) 2022-02-02 2022-02-02 Transition [place] 1.2.840.114 [id number] Univers 00:00:00 00:00:00 of Care Alessandra EMY 350.1.13.10 i ty [place] [id number] [facility] 403 Branch 2022-01-27 2022-01-31 Inpatient X [facility] [id number] Univers 20:40:00 13:51:00 ADNAN ity of [facility] 2022-01-27 2022-01-31 [facility] Paula Rowe [facility] [[email or web address]] 1.2.840.1 14 [id number] Univers 20:40:00 13:51:00 Encounter Jonas Hernandez DEB 350.1.13.10 ity of [place] 4.2.7.2.686 [facility] [id number] [facility] 080 Branch 2022-01-28 2022-01-28 Telephone [facility] 1.2.840.114 [id number] Univers 00:00:00 00:00:00 Layne HEALTH 350.1.13.10 it y of [place] 4.2.7.2.686 [place] [facility] - [id number] [facility] 144 Branch 2022-01-13 2022-01-13 Transition [place] 1.2.840.114 [id number] Univers 00:00:00 00:00:00 of Care Alessandra Garcia JEFFREY 350.1.13.10 i ty of [place].2.[place] [id number] [facility] 403 Branch 2022-01-12 2022-01-12 Emergency X [facility] ERT [id number] Univers 17:23:00 22:19:00 JOSLYN ity [facility] 2022-01-12 2022-01-12 Emergency [facility] 1.2.840.114 [id number] Univers 17:23:00 22:19:00 Joslyn BOYD 350.1.13.10 ity of [facility] 4.2.7.2.686 [facility] [id number] [place] [address]698[place] Branch 2022-01-01 2022-01-12 Inpatient X [facility] RO[place] [id number] Univers 21:18:00 14:06:00 umberto STACK [facility] 2022-01-01 2022-01-12 [facility] Janis Valencia [facility] [[email or web address]] 1 .2.840.114 [id number] Univers 21:18:00 14:06:00 Encounter Cory Cee [facility] 350.1.13.10 ity of Meño Diazabbi Shahla HDARA 4.2.7.2.[address] [facility] [id number] [facility] 111 Branch (CLC) 2021-12-08 2021-12-09 Emergency X [facility] ERT [id number] Univers 22:28:00 00:58:00 DUKE ity [facility] 2021-12-08 2021-12-09 Emergency [facility] 1.2.840.114 [id number] Univers 22:28:00 00:58:00 Duke BOYD 350.1.13.10 ity of [place].7.2.686 [place] [id number] [facility] 084 Branch 2021-09-24 2021-09-24 Transition MO Brewer 1.2.840.114 [id number] Univers 00:00:00 00:00:00 of Care Patria JEFFREY 350.1.13.10 [place] [id number] [facility] 403 Branch 2021-09-22 2021-09-23 Inpatient U ENE GIVENS [facility] [[email or web address] MPU [id number] Univers 00:05:00 15:03:00 ENE GIVENS i ty of [facility] 2021-09-22 2021-09-23 Hospital Paula Rowe 1.2.840.1 14 [id number] Univers 00:05:00 15:03:00 Encounter Ene Givens 350.1.13.10 ity of HOSPITAL 4.2.7.2.686 Compa as [id number] [facility] 085 Branch 2021-08-01 2021-08-01 Orders Doctor KATELYN 1.2.840.114 [id number] Univers 00:00:00 00:00:00 Only Unassigned, JACKIE 350.1.13.10 ity of [place] [facility] 4.2.7.2.686 Compa as [id number] [facility] 009 Branch 2021-07-23 2021-07-23 Office [facility] 1.2.840.114 [id number] Univers 14:15:00 14:30:[address] [facility] 350.1.13.10 it y of [place] 4.2.7.2.686 [place] [facility] - [id number] [facility] 144 Branch 2021-07-23 2021-07-23 [facility] [id number] Univers 14:15:00 14:15:00 LAYNE ity [facility] 2021-07-23 2021-07-23 Outpatient [facility] [id number] Univers 14:15:00 14:15:00 LAYNE ity [facility] 2021-07-23 2021-07-23 [facility] 1.2.840.114 [id number] Univers 00:00:00 00:00:00 Laynesteven MENDOZA 350.1.13.10 i ty [facility] [place].2.[place] [id number] [facility] 144 Branch 2021-06-25 2021-06-26 Emergency X JOS [facility] [[email or web address]] ERT [id number] Univers 21:58:00 03:17:00 APARNA [facility] 2021-06-25 2021-06-26 [facility] 1.2.121.479 [id number] Univers 21:58:00 03:17:00 Aparna BOYD 350.1.13.10 [facility] 4.2.7.2.686 [facility] [id number] [place] [address]69824 [place] 2021-02-19 2021-02-19 Outpatient [facility] [id number] Univers 00:00:00 00:00:00 [facility] 2020-02-01 2020-02-01 Outpatient [facility] [id number] Univers 00:00:00 00:00:00 [facility] 2019-09-01 2019-09-01 Outpatient [facility] [id number] Univers 14:41:55 23:59:00 GAB [facility] 2019-08-04 2019-08-04 Outpatient [facility] [id number] Univers 17:13:44 23:59:00 JUNE [facility] Results Test Description Test Time Test Comments Results Result Comments Source POCT GLUCOSE (AUTOMATED) 2022-08-10 20:26:18 Test Item Value Reference Range Interpretation Comme nts POCT GLU (test code = 2865411623) 178 mg/dL 70-110 H Lab Interpretation (test code = 90739-2) Abnormal [facility] GLUCOSE (AUTOMATED)2022-08-10 20:26:17 Test Item Value Reference Range Interpretation Comments POCT GLU (test code = 4451317213) 134 mg/dL 70-110 H Lab Interpretation (test code = Abnormal 39091-3) [facility] GLUCOSE (AUTOMATED)2022-08-10 09:35:52 Test Item Value Reference Range Interpretation Comments POCT GLU (test code = 5684840393) 240 mg/dL 70-110 H Lab Interpretation (test code = Abnormal 19446-2) [facility] GLUCOSE (AUTOMATED)2022-08-10 06:09:42 Test Item Value Reference Range Interpretation Comments POCT GLU (test code = 3576185761) 219 mg/dL 70-110 H Lab Interpretation (test code = Abnormal 93536-3) [facility] GLUCOSE (AUTOMATED)2022-08-10 02:27:50 Test Item Value Reference Range Interpretation Comments POCT GLU (test code = 0634669591) 264 mg/dL 70-110 H Lab Interpretation (test code = Abnormal 24778-3) [facility] GLUCOSE (AUTOMATED)2022-08-09 22:32:46 Test Item Value Reference Range Interpretation Comments POCT GLU (test code = 5649160856) 327 mg/dL 70-110 H Lab Interpretation (test code = Abnormal 55282-7) [facility] GLUCOSE (AUTOMATED)2022-08-09 13:19:52 Test Item Value Reference Range Interpretation Comments POCT GLU (test code = 4457199484) 196 mg/dL 70-110 H Lab Interpretation (test code = Abnormal 80528-3) [facility] 12:10:11 Test Item Value Reference Range Interpretation Comments MAGNESIUM (test code = 4873333562) 2.5 mg/dL 1.7-2.4 H Lab Interpretation (test code = Abnormal 62522-2) [facility] (NA, K, CL, CO2, GLUCOSE, BUN, CREATININE, CA)2022-08-09 12:10:06 Test Item Value Reference Range Interpretation Comments NA (test code = 137 mmol/L 135-145 8832110773) K (test code = 4.3 mmol/L 3.5-5.0 8742334706) CL (test code = 101 mmol/L 98-108 1390120063) CO2 TOTAL (test code = 35 mmol/L 23-31 H 3568855716) AGAP (test code = 2-16 L 0771962242) BUN (test code = 22 mg/dL 7-23 1404343751) GLUCOSE (test code = 186 mg/dL 70-110 H 1313467237) CREATININE (test code = 0.82 mg/dL 0.50-1.04 6323273661) CALCIUM (test code = 8.2 mg/dL 8.6-10.6 L 2387320890) eGFR (test code = mL/min/1.73m2 1870787876) JENNIFFER (test code = JENNIFFER) Association of [...] tests). Lab Interpretation Abnormal (test code = 18590-5) [facility]2023-01-15 12:09:46 Test Item Value Reference Range Interpretation Comments PHOSPHORUS (test code = 4236423473) 3.2 mg/dL 2.5-5.0 Lab Interpretation (test code = Normal 54621-0) [facility] WITH PIVE5274-16-19 12:03:07 Test Item Value Reference Range Interpretation Comments WBC (test code = See_Comment [Automated 2790-2) message] The sy stem which generated this result transmitted reference range : 4.30 - 11.10 10*3/?L. The reference range was not used to interpret this result as normal/abnormal . RBC (test code = See_Comment L [Automated 369-8) message] The sy stem which generated this [...] RDW-SD (test code = 47.1 fL 39.0-49.9 93170-3) RDW-CV (test code = 14.6 % 12.0-15.5 788-0) PLT (test code = See_Comment [Automated 777-3) message] The sy stem which generated this result transmitted reference range : 166 - 358 10*3/ ?L. The reference r josselyn was not used to interpret this result as normal/abnormal . MPV (test code = 9.5 fL 9.5-12.9 78685-9) NRBC/100 WBC (test See_Comment [Automat ed code = 1856039166) message] The system which generated this result transmitted reference range : 0.0 - 10.0 /100 WBCs. The refer ence range was not u sed to interpret th is result as normal/abnormal . NRBC x10^3 (test code See_Comment [Auto mated = 3038769569) message] The s ystem which generated this result transmitted reference range : 10*3/?L. The reference range was not used to interpret this result as normal/abnormal . GRAN MAT (NEUT) % 85.8 % (test code = 770-8) IMM GRAN % (test code 2.50 % = 6785581108) LYMPH % (test code = 6.7 % 736-9) MONO % (test code = 4.8 % 5905-5) EOS % (test code = 0.1 % 713-8) BASO % (test code = 0.1 % 706-2) GRAN MAT x10^3(ANC) 7.74 10*3/uL 1.88-7.09 H (test code = 3505981684) IMM GRAN x10^3 (test 0.23 10*3/uL 0.00-0.06 H code = 7947956359) LYMPH x10^3 (test code 0.60 10*3/uL 1.32-3.29 L = 731-0) MONO x10^3 (test code 0.43 10*3/uL 0.33-0.92 = 742-7) EOS x10^3 (test code = 0.03-0.39 L 711-2) BASO x10^3 (test code 0.01-0.07 = 704-7) Lab Interpretation Abnormal (test code = 61846-1) [facility] GLUCOSE (AUTOMATED)2022-08-09 11:54:17 Test Item Value Reference Range Interpretation Comments POCT GLU (test code = 4348354301) 202 mg/dL 70-110 H Lab Interpretation (test code = Abnormal 39775-8) [facility] GLUCOSE (AUTOMATED)2022-08-09 06:19:48 Test Item Value Reference Range Interpretation Comments POCT GLU (test code = 0418000913) 231 mg/dL 70-110 H Lab Interpretation (test code = Abnormal 39528-8) [facility] GLUCOSE (AUTOMATED)2022-08-09 02:32:58 Test Item Value Reference Range Interpretation Comments POCT GLU (test code = 6968721557) 316 mg/dL 70-110 H Lab Interpretation (test code = Abnormal 37690-5) [facility] GLUCOSE (AUTOMATED)2022-08-09 02:28:52 Test Item Value Reference Range Interpretation Comments POCT GLU (test code = [id number]) 363 mg/dL 70-110 H Lab Interpretation (test code = Abnormal 59742-1) [facility] GLUCOSE (AUTOMATED)2022-08-08 17:32:51 Test Item Value Reference Range Interpretation Comments POCT GLU (test code = [id number]) 201 mg/dL 70-110 H Lab Interpretation (test code = Abnormal 74075-5) [facility] GLUCOSE (AUTOMATED)2022-08-08 17:32:51 Test Item Value Reference Range Interpretation Comments POCT GLU (test code = 2344706246) 251 mg/dL 70-110 H Lab Interpretation (test code = Abnormal 93781-7) [facility] GLUCOSE (AUTOMATED)2022-08-08 10:02:25 Test Item Value Reference Range Interpretation Comments POCT GLU (test code = 6414970277) 153 mg/dL 70-110 H Lab Interpretation (test code = Abnormal 30328-6) [facility] GLUCOSE (AUTOMATED)2022-08-08 06:20:09 Test Item Value Reference Range Interpretation Comments POCT GLU (test code = 8710223302) 224 mg/dL 70-110 H Lab Interpretation (test code = Abnormal 98616-6) [facility] GLUCOSE (AUTOMATED)2022-08-08 02:43:59 Test Item Value Reference Range Interpretation Comments POCT GLU (test code = 9249504125) 256 mg/dL 70-110 H Lab Interpretation (test code = Abnormal 24594-7) [facility] GLUCOSE (AUTOMATED)2022-08-07 22:28:36 Test Item Value Reference Range Interpretation Comments POCT GLU (test code = 5075768572) 273 mg/dL 70-110 H Lab Interpretation (test code = Abnormal 87088-2) [facility] 22:15:07 Test Item Value Reference Range Interpretation Comments Height (test code = in 2884941452) Weight (test code = lbs 8138446453) Systolic BP (test code = mmHg 9073152077) Diastolic BP (test code mmHg = 4121662696) Heart Rate (test code = bpm 5167489216) BSA (test code = 1.96 m2 6747079388) Ao root diam (test code 3.30 cm = 7113576495) Aortic root (test code = 3.3 cm 1334829789) Ao root annulus (test 3.3 cm code = 9681844444) LVOT diameter (test code 1.80 cm = 6616156978) LVOT area (test code = 2.60 cm2 9926020747) LVIDD (test code = 3.50 cm 8490584571) Left Ventricular End 51.9 mL Diastolic Volume by Teichholz Method (test code = 5865673) IVS (test code = 1.24 cm 7611335264) Interventricular Septum 1.24 cm Diastolic Thickness by 2D (test code = 0629104) LVPWD (test code = 1.24 cm 6672094227) PW (test code = 1.24 cm 0.6-1.3 8793070155) EF(Teich) (test code = 58.70 % 6619022644) LVIDS (test code = 2.46 cm 8960742620) Left Ventricular End 21.4 mL Systolic Volume by Teichholz Method (test code = 3205488) FS (test code = 30 % 7927307398) EF - 2D (test code = 58.70 % 12495520) LA size (test code = 2.9 cm 3427062435) MV Peak E Marva (test code 81.4 cm/s = 7772333161) MV stenosis pressure 1/2 76.6 ms time (test code = 1444997305) E wave decelartion time 0.26 s (test code = 3085795590) MV Peak A Marva (test code 87.8 cm/s = 4005988601) E/A ratio (test code = ratio 5426809028) MV Prop V (test code = 139.40 cm/s 8007901927) MV E/e' septal (test 7.4 cm/s code = 3474082771) Tapse (test code = 1.61 cm 1542181475) LVOT stroke volume (test 53.30 cm3 code = 0076215568) LVOT peak marva (test code 128.1 cm/s = 1237717875) LVOT mn grad (test code mmHg = 4968588670) AV LVOT peak gradient mmHg (test code = 5492747226) LVOT peak VTI (test code 20.9 cm = 0523659676) LV V1 mean (test code = 86.80 cm/s 6684581540) Aortic valve mean 119.8 cm/s velocity (test code = 9168637582) Ao peak marva (test code = 175.1 cm/s 8548667454) Ao VTI (test code = 28.5 cm 2006519788) AV area by cont VTI 1.9 cm2 (test code = 0702158077) AV area peak marva (test 1.9 cm2 code = 8516509479) Ao max PG (test code = 12.30 mm[Hg] 8924788424) AV peak gradient (test mmHg code = 0756927842) AV valve area (test code 1.87 cm2 = 6359585614) AV mean gradient (test mmHg code = 8006447436) Radiology Study observation (narrative) (test code = 07060-8) JENNIFFER (test code = JENNIFFER) Table formatting [...] mL of Lumason ultrasound enhancing agent used. [facility] 17:28:57 Test Item Value Reference Range Interpretation Comments POCT GLU (test code = 168 mg/dL 70-110 H Notifi ed Provider 0151564435) Lab Interpretation (test Abnormal code = 02286-6) [facility]IM[facility] [id number] 14:57:11 Test Item Value Reference Range Interpretation Comments TSH (test code = See_Comment Biotin has been 1443523635) reported to cau se a negative bias, interpret resul ts relative to pat ient's use of biotin. [Automated mess age] The system whic [employer] generated this result transmitted ref erence range: 0.45 - 4 .70 mIU/L. The refe rence range was not u sed to interpret this result as normal/abnor mal. Lab Interpretation (test Normal code = 89129-3) [facility] GLUCOSE (AUTOMATED)2022-08-07 13:46:07 Test Item Value Reference Range Interpretation Comments POCT GLU (test code = 8746037521) 180 mg/dL 70-110 H Lab Interpretation (test code = Abnormal 89149-6) [facility] GLUCOSE (AUTOMATED)2022-08-07 12:34:16 Test Item Value Reference Range Interpretation Comments POCT GLU (test code = 4088739108) 198 mg/dL 70-110 H Lab Interpretation (test code = Abnormal 67567-8) [facility] [id number] 12:27:41 Test Item Value Reference Interpretation Comments Range TROPONIN I (test 0.005 ng/mL See_Comment [Automated code = 3460824981) message] The system which generated this result [...] biotin. Lab Interpretation Normal (test code = 03851-4) [facility] [id number] 12:24:19 Test Item Value Reference Range Interpretation Comments NT-proBNP (test code 332 pg/mL See_Comment H [Autom ated = 8378638839) message] The system which generated this result transmitted reference range : <=125. The reference range was not used to interpret this result as normal/abnormal . JENNIFFER (test code = JENNIFFER) Biotin has been reported to cause a negative bias, interpret results relative to patient's use of biotin. Lab Interpretation Abnormal (test code = 26498-1) [facility]. METABOLIC PANEL (70249)2022-08-07 12:17:19 Test Item Value Reference Range Interpretation Comments NA (test code = 137 mmol/L 135-145 5554490328) K (test code = 4.3 mmol/L 3.5-5.0 6311695532) CL (test code = 103 mmol/L 98-108 2551087942) CO2 TOTAL (test code = 30 mmol/L 23-31 0576345833) AGAP (test code = 2-16 9892933197) BUN (test code = 30 mg/dL 7-23 H 6691616793) GLUCOSE (test code = 198 mg/dL 70-110 H 3199034732) CREATININE (test code = 0.93 mg/dL 0.50-1.04 4959916633) TOTAL BILI (test code = 0.4 mg/dL 0.1-1.3 8859690751) CALCIUM (test code = 8.3 mg/dL 8.6-10.6 L 0631621796) T PROTEIN (test code = 6.0 g/dL 6.3-8.2 L 7648548593) ALBUMIN (test code = 3.2 g/dL 3.5-5.0 L 1148779572) ALK PHOS (test code = 70 U/L 34-122 6655961918) ALTv (test code = 23 U/L 5-35 1742-6) AST(SGOT) (test code = 22 U/L 13-40 2998251462) eGFR (test code = mL/min/1.73m2 6250788870) JENNIFFER (test code = JENNIFFER) Association of [...] tests). Lab Interpretation Abnormal (test code = 51053-0) [facility]2023-[facility]-13 12:17:19 Test Item Value Reference Range Interpretation Comments MAGNESIUM (test code = 7206374457) 2.4 mg/dL 1.7-2.4 Lab Interpretation (test code = Normal 36932-1) [facility]2023-01-13 12:16:59 Test Item Value Reference Range Interpretation Comments PHOSPHORUS (test code = 8326451805) 3.3 mg/dL 2.5-5.0 Lab Interpretation (test code = Normal 20313-9) [facility] WITH [id number] 12:16:18 Test Item Value Reference Range Interpretation Comments WBC (test code = See_Comment H [Automated 8590-2) message] The system which generated this result transmit alden reference range : 4.30 - 11.10 10*3/?L. The reference range was not used to interpret this result as normal/abnormal . RBC (test code = See_Comment L [Automated 989-8) message] The system which generated this result [...] (test code = 50.2 fL 39.0-49.9 H 14656-3) RDW-CV (test code = 15.1 % 12.0-15.5 788-0) PLT (test code = See_Comment [Automated 777-3) message] The system which generated this result transmit alden reference range : 166 - 358 10*3/ ?L. The reference range was not u sed to interpret th is result as normal/abnormal . MPV (test code = 10.0 fL 9.5-12.9 11459-3) NRBC/100 WBC (test See_Comment [Automat ed code = 6168219783) message] The system which generated this result transmit alden reference range : 0.0 - 10.0 /100 WBCs. The reference range was not used to interpret this result as normal/abnormal . NRBC x10^3 (test code See_Comment [Auto mated = 1176506826) message] The system which generated this result transmit alden reference range : 10*3/?L. The reference range was not used to interpret this result as normal/abnormal . GRAN MAT (NEUT) % 87.7 % (test code = 770-8) IMM GRAN % (test code 1.10 % = 1928069960) LYMPH % (test code = 7.7 % 736-9) MONO % (test code = 3.4 % 5905-5) EOS % (test code = 0.0 % 713-8) BASO % (test code = 0.1 % 706-2) GRAN MAT x10^3(ANC) 11.83 10*3/uL 1.88-7.09 H (test code = 5949209771) IMM GRAN x10^3 (test 0.15 10*3/uL 0.00-0.06 H code = 6092326223) LYMPH x10^3 (test code 1.04 10*3/uL 1.32-3.29 L = 731-0) MONO x10^3 (test code 0.46 10*3/uL 0.33-0.92 = 742-7) EOS x10^3 (test code = 0.03-0.39 L 711-2) BASO x10^3 (test code 0.01-0.07 = 704-7) Lab Interpretation Abnormal (test code = 97196-2) [facility]ball[facility]ILI UNCONJUGATED/BILI [id number] 12:16:18 Test Item Value Reference Range Interpretation Comments BILI CONJ (test code = 1247307369) 0.0 mg/dL 0.0-0.3 BILI UNCON (test code = 2213051341) 0.2 mg/dL 0.1-1.1 Lab Interpretation (test code = Normal 33728-0) [facility] GLUCOSE (AUTOMATED)2022-08-07 10:20:14 Test Item Value Reference Range Interpretation Comments POCT GLU (test code = 2861206434) 227 mg/dL 70-110 H Lab Interpretation (test code = Abnormal 32107-7) [facility] GLUCOSE (AUTOMATED)2022-08-07 05:43:17 Test Item Value Reference Range Interpretation Comments POCT GLU (test code = 7325818755) 162 mg/dL 70-110 H Lab Interpretation (test code = Abnormal 89688-0) [facility] GLUCOSE (AUTOMATED)2022-08-07 02:28:42 Test Item Value Reference Range Interpretation Comments POCT GLU (test code = 1764857455) 229 mg/dL 70-110 H Lab Interpretation (test code = Abnormal 17387-7) [facility] GLUCOSE (AUTOMATED)2022-08-06 17:18:17 Test Item Value Reference Range Interpretation Comments POCT GLU (test code = 0547416955) 223 mg/dL 70-110 H Lab Interpretation (test code = Abnormal 42645-3) [facility] TomballLapric Acid Whole [id number] 13:38:44 Test Item Value Reference Range Interpretation Comments LACTIC ACID (test code = 1.93 mmol/L 0.50-2.20 6149860047) Lab Interpretation (test code = Normal 11264-1) [facility]2022-08-06 13:29:26 Test Item Value Reference Range Interpretation Comments POCT GLU (test code = 1801710305) 261 mg/dL 70-110 H Lab Interpretation (test code = Abnormal 70979-5) [facility]ballTROPONIN [id number] 12:40:18 Test Item Value Reference Interpretation Comments Range TROPONIN I (test 0.002 ng/mL See_Comment [Automated code = 5052650080) message] The system which generated this result [...] biotin. Lab Interpretation Normal (test code = 40227-3) [facility]-TERMIN[facility] [id number] 12:37:16 Test Item Value Reference Range Interpretation Comments NT-proBNP (test code 480 pg/mL See_Comment H [Autom ated = 6063780781) message] The system which generated this result transmitted reference range : <=125. The reference range was not used to interpret this result as normal/abnormal . JENNIFFER (test code = JENNIFFER) Biotin has been reported to cause a negative bias, interpret results relative to patient's use of biotin. Lab Interpretation Abnormal (test code = 15162-3) [facility]. METABOLIC PANEL (61310)2022-08-06 12:28:53 Test Item Value Reference Range Interpretation Comments NA (test code = 136 mmol/L 135-145 2903011843) K (test code = 4.3 mmol/L 3.5-5.0 6145309341) CL (test code = 99 mmol/L 98-108 9700519047) CO2 TOTAL (test code = 36 mmol/L 23-31 H 1579258849) AGAP (test code = 2-16 L 6998405710) BUN (test code = 30 mg/dL 7-23 H 2004148535) GLUCOSE (test code = 246 mg/dL 70-110 H 1148525001) CREATININE (test code = 0.94 mg/dL 0.50-1.04 5893199856) TOTAL BILI (test code = 0.5 mg/dL 0.1-1.5 5477057447) CALCIUM (test code = 8.6 mg/dL 8.6-10.6 6802211328) T PROTEIN (test code = 5.9 g/dL 6.3-8.2 L 9018535065) ALBUMIN (test code = 3.2 g/dL 3.5-5.0 L 4669075148) ALK PHOS (test code = 81 U/L 34-122 4348309644) ALTv (test code = 24 U/L 5-35 1742-6) AST(SGOT) (test code = 23 U/L 13-40 4382761528) eGFR (test code = mL/min/1.73m2 4629927091) JENNIFFER (test code = JENNIFFER) Association of [...] tests). Lab Interpretation Abnormal (test code = 03633-9) [facility]2023-01-12 12:28:53 Test Item Value Reference Range Interpretation Comments MAGNESIUM (test code = 2857012901) 2.2 mg/dL 1.7-2.4 Lab Interpretation (test code = Normal 01521-4) [facility]2023-01-12 12:28:33 Test Item Value Reference Range Interpretation Comments PHOSPHORUS (test code = 6647126364) 2.9 mg/dL 2.5-5.0 Lab Interpretation (test code = Normal 92389-5) [facility]ballCREATINE [id number] 12:28:13 Test Item Value Reference Range Interpretation Comments CK (test code = 9105927569) 21 U/L 33-194 L Lab Interpretation (test code = Abnormal 73989-1) [facility] GLUCOSE (AUTOMATED)2022-08-06 11:29:35 Test Item Value Reference Range Interpretation Comments POCT GLU (test code = 4869914501) 275 mg/dL 70-110 H Lab Interpretation (test code = Abnormal 49384-9) [facility] GLUCOSE (AUTOMATED)2022-08-06 06:56:17 Test Item Value Reference Range Interpretation Comments POCT GLU (test code = 8770064929) 248 mg/dL 70-110 H Lab Interpretation (test code = Abnormal 75366-8) [facility] GLUCOSE (AUTOMATED)2022-08-06 02:34:33 Test Item Value Reference Range Interpretation Comments POCT GLU (test code = 6066499814) 255 mg/dL 70-110 H Lab Interpretation (test code = Abnormal 10185-0) [facility] GLUCOSE (AUTOMATED)2022-08-05 23:01:47 Test Item Value Reference Range Interpretation Comments POCT GLU (test code = 5253345969) 277 mg/dL 70-110 H Lab Interpretation (test code = Abnormal 40632-9) [facility] [id number] 22:36:41 Test Item Value Reference Interpretation Comments Range TROPONIN I (test 0.001 ng/mL See_Comment [Automated code = 9510457810) message] The system which generated this result [...] biotin. Lab Interpretation Normal (test code = 17986-8) [facility] GLUCOSE (AUTOMATED)2022-08-05 17:57:05 Test Item Value Reference Range Interpretation Comments POCT GLU (test code = 3350646268) 306 mg/dL 70-110 H Lab Interpretation (test code = Abnormal 51646-1) [facility] GLUCOSE (AUTOMATED)2022-08-05 13:44:12 Test Item Value Reference Range Interpretation Comments POCT GLU (test code = 9020058976) 376 mg/dL 70-110 H Lab Interpretation (test code = Abnormal 13715-3) [facility] [id number] 04:02:57 Test Item Value Reference Interpretation Comments Range TROPONIN I (test 0.001 ng/mL See_Comment [Automated code = 1998943275) message] The system which generated this result [...] biotin. Lab Interpretation Normal (test code = 67079-8) [facility] [id number] 03:59:58 Test Item Value Reference Range Interpretation Comments NT-proBNP (test code 100 pg/mL See_Comment [Autom ated = 8172662106) message] The system which generated this result transmitted reference range : <=125. The reference range was not used to interpret this result as normal/abnormal . JENNIFFER (test code = JENNIFFER) Biotin has been reported to cause a negative bias, interpret results relative to patient's use of biotin. Lab Interpretation Normal (test code = 55217-1) [facility] METABOLIC PANEL (23927)2022-06-05 03:50:53 Test Item Value Reference Range Interpretation Comments NA (test code = 139 mmol/L 135-145 2459561428) K (test code = 5.0 mmol/L 3.5-5.0 6481952201) CL (test code = 96 mmol/L 98-108 L 4167222878) CO2 TOTAL (test code = 38 mmol/L 23-31 H 1558375261) AGAP (test code = 2-16 6079340828) BUN (test code = 19 mg/dL 7-23 9397183907) GLUCOSE (test code = 186 mg/dL 70-110 H 1466266214) CREATININE (test code = 0.83 mg/dL 0.50-1.04 3748240089) TOTAL BILI (test code = 0.8 mg/dL 0.1-1.6 7378466756) CALCIUM (test code = 8.9 mg/dL 8.6-10.6 1058637906) T PROTEIN (test code = 7.4 g/dL 6.3-8.2 7052265612) ALBUMIN (test code = 4.3 g/dL 3.5-5.0 0714612311) ALK PHOS (test code = 102 U/L 34-122 2233592948) ALTv (test code = 33 U/L 5-35 2-6) AST(SGOT) (test code = 40 U/L 13-40 9495643448) eGFR (test code = mL/min/1.73m2 4771680368) JENNIFFER (test code = JENNIFFER) Association of [...] tests). Lab Interpretation Abnormal (test code = 33884-4) [facility] WITH [id number] 03:35:15 Test Item Value Reference Range Interpretation Comments WBC (test code = See_Comment [Automated 7790-2) message] The sy stem which generated this [...] RDW-SD (test code = 49.0 fL 39.0-49.9 07408-7) RDW-CV (test code = 15.4 % 12.0-15.5 788-0) PLT (test code = See_Comment [Automated 777-3) message] The sy stem which generated this result transmitted reference range : 166 - 358 10*3/ ?L. The reference r josselyn was not used to interpret this result as normal/abnormal . MPV (test code = 9.0 fL 9.5-12.9 L 75555-1) NRBC/100 WBC (test See_Comment [Automat ed code = 9991788632) message] The system which generated this result transmitted reference range : 0.0 - 10.0 /100 WBCs. The refer ence range was not u sed to interpret th is result as normal/abnormal . NRBC x10^3 (test code See_Comment [Auto mated = 9906873473) message] The s ystem which generated this result transmitted reference range : 10*3/?L. The reference range was not used to interpret this result as normal/abnormal . GRAN MAT (NEUT) % 85.5 % (test code = 770-8) IMM GRAN % (test code 0.60 % = 9784665935) LYMPH % (test code = 7.7 % 736-9) MONO % (test code = 4.0 % 5905-5) EOS % (test code = 1.6 % 713-8) BASO % (test code = 0.6 % 706-2) GRAN MAT x10^3(ANC) 8.05 10*3/uL 1.88-7.09 H (test code = 1256661376) IMM GRAN x10^3 (test 0.06 10*3/uL 0.00-0.06 code = 2435248877) LYMPH x10^3 (test code 0.73 10*3/uL 1.32-3.29 L = 731-0) MONO x10^3 (test code 0.38 10*3/uL 0.33-0.92 = 742-7) EOS x10^3 (test code = 0.15 10*3/uL 0.03-0.39 711-2) BASO x10^3 (test code 0.06 10*3/uL 0.01-0.07 = 704-7) Lab Interpretation Abnormal (test code = 08063-1) [facility] [id number] 06:26:12 Test Item Value Reference Interpretation Comments Range TROPONIN I (test 0.002 ng/mL See_Comment [Automated code = 1337691050) message] The system which generated this result [...] biotin. Lab Interpretation Normal (test code = 47619-2) [facility] [id number] 06:23:11 Test Item Value Reference Range Interpretation Comments NT-proBNP (test code 81 pg/mL See_Comment [Autom ated = 0657692348) message] The system which generated this result transmitted reference range : <=125. The reference range was not used to interpret this result as normal/abnormal . JENNIFFER (test code = JENNIFFER) Biotin has been reported to cause a negative bias, interpret results relative to patient's use of biotin. Lab Interpretation Normal (test code = 82490-4) [facility] PANEL 21 + LACTIC [id number] 06:21:05 Test Item Value Reference Range Interpretation Comments PH (test code = 7.32-7.42 L 8237931204) PCO2 CELIA (test code = See_Comment H [Auto mated 3398673371) message] The sy stem which generated this result transmitted reference range : 41 - 51 mmHg. The reference range was not used to interpret this result as normal/abnormal . PO2 CELIA (test code = See_Comment L [Autom ated 2975628798) message] The sy stem which generated this result transmitted reference range : 25 - 40 mmHg. The reference range was not used to interpret this result as normal/abnormal . HCO3 CELIA (test code = See_Comment H [Auto mated 0466667825) message] The sy stem which generated this result transmitted reference range : 24 - 28 mEq/L. The reference range was not used to interpret this result as normal/abnormal . AC VBE(BEAKER) (test mEq/L code = 5724593937) THB CELIA (test code = 12.3 g/dL 12-16 9587643370) %O2HB CELIA (test code = 38.2 % 52-63 L 0358254654) %COHB CELIA (test code = 0.7 % 0-1.5 1146556764) %METHB CELIA (test code = 0.3 % 0.4-1.5 L 3020780238) VOL%O2 CELIA (test code = 6.6 % 6-12 8928341969) NA (test code = 138 mmol/L 135-145 8255499978) K+ (test code = 4.2 mmol/L 3.5-5 8190235784) AC CA IONZ (test code = 4.70 mg/dL 4.5-5.3 0953214327) GLUCOSE (test code = 178 mg/dL 70-110 H 9282917124) LACTIC ACID (test code 1.11 mmol/L 0.5-2.2 = 5983569381) Lab Interpretation Abnormal (test code = 76386-6) [facility]. METABOLIC PANEL (11918)2022-05-02 06:14:48 Test Item Value Reference Range Interpretation Comments NA (test code = 140 mmol/L 135-145 7337279313) K (test code = 4.4 mmol/L 3.5-5 1222637315) CL (test code = 97 mmol/L 98-108 L 6022954959) CO2 TOTAL (test code = 35 mmol/L 23-31 H 3554360078) AGAP (test code = 2-16 5193042019) BUN (test code = 23 mg/dL 7-23 4144508007) GLUCOSE (test code = 185 mg/dL 70-110 H 3424189038) CREATININE (test code = 1.16 mg/dL 0.5-1.04 H 7878085582) TOTAL BILI (test code = 0.4 mg/dL 0.1-1.6 9882751204) CALCIUM (test code = 9.4 mg/dL 8.6-10.6 2263500583) T PROTEIN (test code = 7.3 g/dL 6.3-8.2 3252614048) ALBUMIN (test code = 4.4 g/dL 3.5-5 8567826776) ALK PHOS (test code = 112 U/L 34-122 0382907188) ALTv (test code = 47 U/L 5-35 H 1742-6) AST(SGOT) (test code = 47 U/L 13-40 H 0050901889) eGFR (test code = mL/min/1.73m2 7381359277) JENNIFFER (test code = JENNIFFER) Association of [...] tests). Lab Interpretation Abnormal (test code = 01897-8) [facility]22-[facility] 06:14:48 Test Item Value Reference Range Interpretation Comments MAGNESIUM (test code = 0783825122) 2.5 mg/dL 1.7-2.4 H Lab Interpretation (test code = Abnormal 14179-2) [facility] WITH [id number] 05:53:47 Test Item Value Reference Range Interpretation Comments WBC (test code = See_Comment [Automated 3090-2) message] The sy stem which generated this result transmitted reference range : 4.30 - 11.10 10*3/?L. The reference range was not used to interpret this result as normal/abnormal . RBC (test code = See_Comment [Automated 315-8) message] The sy stem which generated this [...] RDW-SD (test code = 47.2 fL 39-49.9 03669-2) RDW-CV (test code = 14.8 % 12-15.5 788-0) PLT (test code = See_Comment [Automated 777-3) message] The sy stem which generated this result transmitted reference range : 166 - 358 10*3/ ?L. The reference r josselyn was not used to interpret this result as normal/abnormal . MPV (test code = 9.1 fL 9.5-12.9 L 42504-6) NRBC/100 WBC (test See_Comment [Automat ed code = 9854778938) message] The system which generated this result transmitted reference range : 0.0 - 10.0 /100 WBCs. The refer ence range was not u sed to interpret th is result as normal/abnormal . NRBC x10^3 (test code See_Comment [Auto mated = 1189106318) message] The s ystem which generated this result transmitted reference range : 10*3/?L. The reference range was not used to interpret this result as normal/abnormal . GRAN MAT (NEUT) % 82.2 % (test code = 770-8) IMM GRAN % (test code 0.40 % = 9587749092) LYMPH % (test code = 10.2 % 736-9) MONO % (test code = 4.4 % 5905-5) EOS % (test code = 1.8 % 713-8) BASO % (test code = 1.0 % 706-2) GRAN MAT x10^3(ANC) 6.37 10*3/uL 1.88-7.09 (test code = 9344589998) IMM GRAN x10^3 (test 0.03 10*3/uL 0-0.06 code = 6086498381) LYMPH x10^3 (test code 0.79 10*3/uL 1.32-3.29 L = 731-0) MONO x10^3 (test code 0.34 10*3/uL 0.33-0.92 = 742-7) EOS x10^3 (test code = 0.14 10*3/uL 0.03-0.39 711-2) BASO x10^3 (test code 0.08 10*3/uL 0.01-0.07 H = 704-7) Lab Interpretation Abnormal (test code = 33824-8) [facility] [id number] 03:36:53 Test Item Value Reference Range Interpretation Comments NT-proBNP (test code 102 pg/mL See_Comment [Autom ated = 0243102706) message] The system which generated this result transmitted reference range : <=125. The reference range was not used to interpret this result as normal/abnormal . JENNIFFER (test code = JENNIFFER) Biotin has been reported to cause a negative bias, interpret results relative to patient's use of biotin. Lab Interpretation Normal (test code = 96944-5) [facility] [id number] 03:23:03 Test Item Value Reference Interpretation Comments Range TROPONIN I (test See_Comment [Automated code = 5982050753) message] The system which generated this result [...] biotin. Lab Interpretation Normal (test code = 16180-7) [facility]OL[facility] PAN[facility] (03951)2022-04-29 03:11:22 Test Item Value Reference Range Interpretation Comments NA (test code = 139 mmol/L 135-145 7864334622) K (test code = 4.6 mmol/L 3.5-5 0400421603) CL (test code = 94 mmol/L 98-108 L 6766599435) CO2 TOTAL (test code = 36 mmol/L 23-31 H 9414591631) AGAP (test code = 2-16 0900630561) BUN (test code = 23 mg/dL 7-23 9374279714) GLUCOSE (test code = 271 mg/dL 70-110 H 3234279959) CREATININE (test code = 0.91 mg/dL 0.5-1.04 3504310388) TOTAL BILI (test code = 0.5 mg/dL 0.1-1.9 3207531421) CALCIUM (test code = 9.3 mg/dL 8.6-10.6 8505367976) T PROTEIN (test code = 7.3 g/dL 6.3-8.2 1105834168) ALBUMIN (test code = 4.5 g/dL 3.5-5 7175689251) ALK PHOS (test code = 137 U/L 34-122 H 5238818581) ALTv (test code = 39 U/L 5-35 H 1742-6) AST(SGOT) (test code = 34 U/L 13-40 8261213821) eGFR (test code = mL/min/1.73m2 4155889127) JENNIFFER (test code = JENNIFFER) Association of [...] tests). Lab Interpretation Abnormal (test code = 98322-2) [facility] TH[facility] [id number] 03:09:40 Test Item Value Reference Range Interpretation Comments APTT Patient (test See_Comment [Automat ed code = 3173-2) message] The system which generated this result transmitted reference range : 23 - 38 Seconds . The reference range was not used to interpr et this result as normal/abnormal . JENNIFFER (test code = JENNIFFER) The [email or web address] patient population mean normal value for aPTT is 30 seconds. Lab Interpretation Normal (test code = 47322-8) [facility]ballPROTHROMBIN TIME / [id number] 03:07:39 Test Item Value Reference Range Interpretation [...] tions. Lab Interpretation (test Normal code = 26799-8) [facility] WITH [id number] 02:58:01 Test Item Value Reference Range Interpretation Comments WBC (test code = See_Comment H [Automated 2290-2) message] The system which generated this result transmit alden reference range : 4.30 - 11.10 10*3/?L. The reference range was not used to interpret this result as normal/abnormal . RBC (test code = See_Comment [Automated 669-8) message] The system which generated this result [...] RDW-SD (test code = 47.9 fL 39-49.9 74020-5) RDW-CV (test code = 14.8 % 12-15.5 788-0) PLT (test code = See_Comment [Automated 777-3) message] The system which generated this result transmit alden reference range : 166 - 358 10*3/ ?L. The reference range was not u sed to interpret th is result as normal/abnormal . MPV (test code = 9.0 fL 9.5-12.9 L 52335-6) NRBC/100 WBC (test See_Comment [Automat ed code = 6854234596) message] The system which generated this result transmit alden reference range : 0.0 - 10.0 /100 WBCs. The reference range was not used to interpret this result as normal/abnormal . NRBC x10^3 (test code See_Comment [Auto mated = 9561511239) message] The system which generated this result transmit alden reference range : 10*3/?L. The reference range was not used to interpret this result as normal/abnormal . GRAN MAT (NEUT) % 85.4 % (test code = 770-8) IMM GRAN % (test code 0.40 % = 7000837077) LYMPH % (test code = 7.5 % 736-9) MONO % (test code = 5.0 % 5905-5) EOS % (test code = 1.1 % 713-8) BASO % (test code = 0.6 % 706-2) GRAN MAT x10^3(ANC) 10.20 10*3/uL 1.88-7.09 H (test code = 2839942444) IMM GRAN x10^3 (test 0.05 10*3/uL 0-0.06 code = 6617089684) LYMPH x10^3 (test code 0.89 10*3/uL 1.32-3.29 L = 731-0) MONO x10^3 (test code 0.60 10*3/uL 0.33-0.92 = 742-7) EOS x10^3 (test code = 0.13 10*3/uL 0.03-0.39 711-2) BASO x10^3 (test code 0.07 10*3/uL 0.01-0.07 = 704-7) Lab Interpretation Abnormal (test code = 68043-1) [facility] GLUCOSE (AUTOMATED)2022-02-27 20:32:53 Test Item Value Reference Range Interpretation Comments POCT GLU (test code = 5107561218) 236 mg/dL 70-110 H Lab Interpretation (test code = Abnormal 62502-4) [facility] GLUCOSE (AUTOMATED)2022-02-27 16:22:28 Test Item Value Reference Range Interpretation Comments POCT GLU (test code = 1851086272) 242 mg/dL 70-110 H Lab Interpretation (test code = Abnormal 89736-4) [facility] GLUCOSE (AUTOMATED)2022-02-27 12:34:52 Test Item Value Reference Range Interpretation Comments POCT GLU (test code = 3345488460) 195 mg/dL 70-110 H Lab Interpretation (test code = Abnormal 59566-5) [facility] GLUCOSE (AUTOMATED)2022-02-26 21:43:40 Test Item Value Reference Range Interpretation Comments POCT GLU (test code = 7083405423) 315 mg/dL 70-110 H Lab Interpretation (test code = Abnormal 54151-9) [facility] GLUCOSE (AUTOMATED)2022-02-26 17:51:09 Test Item Value Reference Range Interpretation Comments POCT GLU (test code = 0152200766) 316 mg/dL 70-110 H Lab Interpretation (test code = Abnormal 97131-6) [facility] GLUCOSE (AUTOMATED)2022-02-26 14:27:56 Test Item Value Reference Range Interpretation Comments POCT GLU (test code = 9866051720) 226 mg/dL 70-110 H Lab Interpretation (test code = Abnormal 16279-5) [facility]ballBLOOD CULTURE [id number] 10:01:38 Test Item Value Reference Range Interpretation Comments Blood Culture-Aerobic No organisms No growth Previo us (test code = 55428-7) isolated prelim inary verified result was Culture [...] Culture-Anaerobic isolated preliminar y (test code = 45874-2) verifi ed result was Culture In Progress [...] CDT Lab Interpretation Normal (test code = 15281-4) [facility] GLUCOSE (AUTOMATED)2022-02-26 01:34:43 Test Item Value Reference Range Interpretation Comments POCT GLU (test code = 6257908357) 253 mg/dL 70-110 H Lab Interpretation (test code = Abnormal 44897-1) [facility] GLUCOSE (AUTOMATED)2022-02-25 20:41:07 Test Item Value Reference Range Interpretation Comments POCT GLU (test code = 3129986062) 260 mg/dL 70-110 H Lab Interpretation (test code = Abnormal 46187-8) [facility] GLUCOSE (AUTOMATED)2022-02-25 16:40:46 Test Item Value Reference Range Interpretation Comments POCT GLU (test code = 6266282044) 245 mg/dL 70-110 H Lab Interpretation (test code = Abnormal 96969-0) [facility] Arterial Blood Gas.2022-02-25 14:15:07 Test Item Value Reference Range Interpretation Comments PH (test code = 2) 7.35-7.45 H PCO2 (test code = See_Comment H [Automate d message] 0505808291) The system [employer] generated this result transmitted ref erence range: 35 - 45 mmHg. The reference r josselyn was not used to interpret this result as normal/abnor mal. PO2 (test code = See_Comment [Automated message] 8456670151) The system [employer] generated this result transmitted ref erence range: 80 - 100 mmHg. The reference r josselyn was not used to interpret this result as normal/abnor mal. HCO3 (test code = See_Comment H [Automate d message] 9913670339) The system [employer] generated this result transmitted ref erence range: 22 - 26 mEq/L. The reference r josselyn was not used to interpret this result as normal/abnor mal. BE (test code = See_Comment H [Automated message] 5991398432) The system [employer] generated this result transmitted ref erence range: -3.0 - 3 .0 mEq/L. The refe rence range was not u sed to interpret this result as normal/abnor mal. Lab Interpretation (test Abnormal code = 44688-9) [facility] GLUCOSE (AUTOMATED)2022-02-25 12:53:11 Test Item Value Reference Range Interpretation Comments POCT GLU (test code = 8739052602) 194 mg/dL 70-110 H Lab Interpretation (test code = Abnormal 24149-9) [facility] METABOLIC PANEL (NA, K, CL, CO2, GLUCOSE, BUN, CREATININE, CA)2022-02-25 12:18:22 Test Item Value Reference Range Interpretation Comments NA (test code = 135 mmol/L 135-145 2661644666) K (test code = 3.5 mmol/L 3.5-5 6242653402) CL (test code = 97 mmol/L 98-108 L 2532921095) CO2 TOTAL (test code = 37 mmol/L 23-31 H 0353483014) AGAP (test code = 2-16 L 1303437664) BUN (test code = 36 mg/dL 7-23 H 5803460096) GLUCOSE (test code = 172 mg/dL 70-110 H 6545695981) CREATININE (test code = 1.57 mg/dL 0.5-1.04 H 7519450365) CALCIUM (test code = 9.0 mg/dL 8.6-10.6 7192521825) eGFR (test code = mL/min/1.73m2 3285939829) JENNIFFER (test code = JENNIFFER) Association of [...] tests). Lab Interpretation Abnormal (test code = 10375-7) [facility]22-[facility] 12:18:22 Test Item Value Reference Range Interpretation Comments MAGNESIUM (test code = 8580455463) 1.7 mg/dL 1.7-2.4 Lab Interpretation (test code = Normal 73055-1) [facility]2022-08-03 12:18:22 Test Item Value Reference Range Interpretation Comments PHOSPHORUS (test code = 2283544818) 2.7 mg/dL 2.5-5 Lab Interpretation (test code = Normal 29951-1) [facility] GLUCOSE (AUTOMATED)2022-02-25 01:26:19 Test Item Value Reference Range Interpretation Comments POCT GLU (test code = 5149532063) 180 mg/dL 70-110 H Lab Interpretation (test code = Abnormal 54937-4) [facility] GLUCOSE (AUTOMATED)2022-02-24 20:51:23 Test Item Value Reference Range Interpretation Comments POCT GLU (test code = 6975664766) 206 mg/dL 70-110 H Lab Interpretation (test code = Abnormal 63944-5) [facility] Arterial Blood Gas.2022-02-24 17:04:22 Test Item Value Reference Range Interpretation Comments PH (test code = 2) 7.35-7.45 H PCO2 (test code = See_Comment [Automate d message] 8316070522) The system [employer] generated this result transmitted ref erence range: 35 - 45 mmHg. The reference r josselyn was not used to interpret this result as normal/abnor mal. PO2 (test code = See_Comment H [Automated message] 2864547620) The system [employer] generated this result transmitted ref erence range: 80 - 100 mmHg. The reference r josselyn was not used to interpret this result as normal/abnor mal. HCO3 (test code = See_Comment H [Automate d message] 4234321494) The system [employer] generated this result transmitted ref erence range: 22 - 26 mEq/L. The reference r josselyn was not used to interpret this result as normal/abnor mal. BE (test code = See_Comment H [Automated message] 6369207490) The system [employer] generated this result transmitted ref erence range: -3.0 - 3 .0 mEq/L. The refe rence range was not u sed to interpret this result as normal/abnor mal. Lab Interpretation (test Abnormal code = 25840-6) [facility]2022-02-24 17:00:46 Test Item Value Reference Range Interpretation Comments POCT GLU (test code = 5746696703) 230 mg/dL 70-110 H Lab Interpretation (test code = Abnormal 99758-4) [facility] [id number] 13:31:58 Test Item Value Reference Interpretation Comments Range TROPONIN I (test 0.002 ng/mL See_Comment [Automated code = 0086571792) message] The system which generated this result [...] biotin. Lab Interpretation Normal (test code = 58361-0) [facility]2022-02-24 13:24:56 Test Item Value Reference Range Interpretation Comments POCT GLU (test code = 1199833515) 252 mg/dL 70-110 H Lab Interpretation (test code = Abnormal 21843-1) [facility] (NA, K, CL, CO2, GLUCOSE, BUN, CREATININE, CA)2022-02-24 13:21:38 Test Item Value Reference Range Interpretation Comments NA (test code = 138 mmol/L 135-145 8373529571) K (test code = 4.3 mmol/L 3.5-5 7256812697) CL (test code = 94 mmol/L 98-108 L 1264521094) CO2 TOTAL (test code = 39 mmol/L 23-31 H 4308767309) AGAP (test code = 2-16 5960151498) BUN (test code = 31 mg/dL 7-23 H 8496831483) GLUCOSE (test code = 237 mg/dL 70-110 H 5009492863) CREATININE (test code = 1.46 mg/dL 0.5-1.04 H 6542120401) CALCIUM (test code = 9.2 mg/dL 8.6-10.6 0704347313) eGFR (test code = mL/min/1.73m2 6759118603) JENNIFFER (test code = JENNIFFER) Association of [...] tests). Lab Interpretation Abnormal (test code = 89177-8) [facility]ballLactic Acid Whole [id number] 03:18:42 Test Item Value Reference Range Interpretation Comments LACTIC ACID (test code = 0.92 mmol/L 0.5-2.2 2238590874) Lab Interpretation (test code = Normal 74358-5) [facility] GLUCOSE (AUTOMATED)2022-02-24 01:21:36 Test Item Value Reference Range Interpretation Comments POCT GLU (test code = 0429995281) 200 mg/dL 70-110 H Lab Interpretation (test code = Abnormal 44902-3) [facility] GLUCOSE (AUTOMATED)2022-02-23 22:45:38 Test Item Value Reference Range Interpretation Comments POCT GLU (test code = 6067027751) 246 mg/dL 70-110 H Lab Interpretation (test code = Abnormal 36979-7) [facility] GLUCOSE (AUTOMATED)2022-02-23 21:47:33 Test Item Value Reference Range Interpretation Comments POCT GLU (test code = 261 mg/dL 70-110 H Notifi ed Provider 5383326916) Lab Interpretation (test Abnormal code = 34055-6) [facility] Panel 20 + Lactic Bazn0412-11-03 18:40:55 Test Item Value Reference Range Interpretation Comments PH (test code = 2) 7.35-7.45 PCO2 (test code = See_Comment H [Automate d 7535855755) message] The sy stem which generated this result transmitted reference range : 35 - 45 mmHg. The reference range was not used to interpret this result as normal/abnormal . PO2 (test code = See_Comment H [Automated 7551778985) message] The sy stem which generated this result transmitted reference range : 80 - 100 mmHg. The reference range was not used to interpret this result as normal/abnormal . HCO3 (test code = See_Comment H [Automate d 7690353474) message] The sy stem which generated this result transmitted reference range : 22 - 26 mEq/L. The reference range was not used to interpret this result as normal/abnormal . BE (test code = See_Comment H [Automated 2279163921) message] The sy stem which generated this result transmitted reference range : -3.0 - 3.0 mEq/ L. The reference r josselyn was not used to interpret this result as normal/abnormal . THB (test code = 10.1 g/dL 12-16 L 8083698471) %O2HB (test code = 98.2 % 94-99 5024996012) %COHB ART (test code = 0.0 % 0-1.5 5826903044) %METHB ART (test code = 0.2 % 0.4-1.5 L 0112398033) VOL%O2 ART (test code = 14.2 % 15-23 L 7378934821) NA (test code = 142 mmol/L 135-145 2352608155) K+ (test code = 3.9 mmol/L 3.5-5 4206627041) AC CA IONZ (test code = 4.60 mg/dL 4.5-5.3 5804689462) GLUCOSE (test code = 201 mg/dL 70-110 H 8426605207) LACTIC ACID (test code 0.99 mmol/L 0.5-2.2 = 0841597520) Lab Interpretation Abnormal (test code = 48966-3) [facility]2022-02-23 17:20:26 Test Item Value Reference Range Interpretation Comments POCT GLU (test code = 222 mg/dL 70-110 H Notifi ed Provider 6076243282) Lab Interpretation (test Abnormal code = 11745-9) [facility] GLUCOSE (AUTOMATED)2022-02-23 13:23:49 Test Item Value Reference Range Interpretation Comments POCT GLU (test code = 188 mg/dL 70-110 H Notifi ed Provider 7475722119) Lab Interpretation (test Abnormal code = 10986-3) [facility] GLUCOSE (AUTOMATED)2022-02-22 21:57:50 Test Item Value Reference Range Interpretation Comments POCT GLU (test code = 7613898475) 240 mg/dL 70-110 H Lab Interpretation (test code = Abnormal 64792-7) [facility] GLUCOSE (AUTOMATED)2022-02-22 18:33:41 Test Item Value Reference Range Interpretation Comments POCT GLU (test code = 7805479284) 247 mg/dL 70-110 H Lab Interpretation (test code = Abnormal 93252-1) [facility]ballURINE [id number] 15:54:13 Test Item Value Reference Range Interpretation Comments URINE CULTURE (test No aerobic growth (< code = 630-4) 1000 CFU/mL) [facility] (NA, K, CL, CO2, GLUCOSE, BUN, CREATININE, CA)2022-02-22 13:03:42 Test Item Value Reference Range Interpretation Comments NA (test code = 140 mmol/L 135-145 4400161971) K (test code = 3.7 mmol/L 3.5-5 2726223311) CL (test code = 95 mmol/L 98-108 L 8908269992) CO2 TOTAL (test code = 40 mmol/L 23-31 H 5699573500) AGAP (test code = 2-16 0707424655) BUN (test code = 19 mg/dL 7-23 2648431494) GLUCOSE (test code = 167 mg/dL 70-110 H 6137446729) CREATININE (test code = 0.85 mg/dL 0.5-1.04 4981724211) CALCIUM (test code = 9.0 mg/dL 8.6-10.6 9929562556) eGFR (test code = mL/min/1.73m2 1551734696) JENNIFFER (test code = JENNIFFER) Association of [...] tests). Lab Interpretation Abnormal (test code = 77970-3) [facility]2022-[facility]-31 12:14:43 Test Item Value Reference Range Interpretation Comments MAGNESIUM (test code = 2012107232) 2.3 mg/dL 1.7-2.4 Lab Interpretation (test code = Normal 90097-5) [facility] WITH [id number] 11:52:02 Test Item Value Reference Range Interpretation Comments WBC (test code = See_Comment [Automated 5290-2) message] The sy stem which generated this result transmitted reference range : 4.30 - 11.10 10*3/?L. The reference range was not used to interpret this result as normal/abnormal . RBC (test code = See_Comment L [Automated 459-8) message] The sy stem which generated this [...] RDW-SD (test code = 48.7 fL 39-49.9 21880-9) RDW-CV (test code = 15.2 % 12-15.5 788-0) PLT (test code = See_Comment [Automated 777-3) message] The sy stem which generated this result transmitted reference range : 166 - 358 10*3/ ?L. The reference r josselyn was not used to interpret this result as normal/abnormal . MPV (test code = 8.9 fL 9.5-12.9 L 53760-4) NRBC/100 WBC (test See_Comment [Automat ed code = 3534181230) message] The system which generated this result transmitted reference range : 0.0 - 10.0 /100 WBCs. The refer ence range was not u sed to interpret th is result as normal/abnormal . NRBC x10^3 (test code See_Comment [Auto mated = 6896798710) message] The s ystem which generated this result transmitted reference range : 10*3/?L. The reference range was not used to interpret this result as normal/abnormal . GRAN MAT (NEUT) % 70.5 % (test code = 770-8) IMM GRAN % (test code 0.70 % = 3034378886) LYMPH % (test code = 18.8 % 736-9) MONO % (test code = 7.9 % 5905-5) EOS % (test code = 1.2 % 713-8) BASO % (test code = 0.9 % 706-2) GRAN MAT x10^3(ANC) 4.04 10*3/uL 1.88-7.09 (test code = 6970710612) IMM GRAN x10^3 (test 0.04 10*3/uL 0-0.06 code = 8112547609) LYMPH x10^3 (test code 1.08 10*3/uL 1.32-3.29 L = 731-0) MONO x10^3 (test code 0.45 10*3/uL 0.33-0.92 = 742-7) EOS x10^3 (test code = 0.07 10*3/uL 0.03-0.39 711-2) BASO x10^3 (test code 0.05 10*3/uL 0.01-0.07 = 704-7) Lab Interpretation Abnormal (test code = 02944-6) [facility] GLUCOSE (AUTOMATED)2022-02-22 01:40:53 Test Item Value Reference Range Interpretation Comments POCT GLU (test code = 9358662462) 246 mg/dL 70-110 H Lab Interpretation (test code = Abnormal 91188-1) [facility] GLUCOSE (AUTOMATED)2022-02-21 22:04:44 Test Item Value Reference Range Interpretation Comments POCT GLU (test code = 8647853724) 293 mg/dL 70-110 H Lab Interpretation (test code = Abnormal 07715-1) [facility] WITHOUT [id number] 16:03:44 Test Item Value Reference Range Interpretation Comments WBC (test code = 6690-2) See_Comment [A utomated message] The system [employer] generated this result transmit alden reference range : 4.30 - 11.10 10*3/?L. The reference range was not used to interpret this result as normal/abnormal . RBC (test code = 789-8) See_Comment L [Au tomated message] The system [employer] generated this result transmit alden reference range [...] 777-3) See_Comment [Au tomated message] The system [employer] generated this result transmit alden reference range : 166 - 358 10*3/?L. The reference range was not used to interpret this result as normal/abnormal . MPV (test code = 9.2 fL 9.5-12.9 L 71393-1) RDW-CV (test code = 15.7 % 12-15.5 H 788-0) RDW-SD (test code = 50.9 fL 39-49.9 H 69028-4) NRBC x10^3 (test code = See_Comment [Au tomated message] 9512174719) The system [employer] generated this result transmit alden reference range : 10*3/?L. The reference range was not used to interpret this result as normal/abnormal . NRBC/100 WBC (test code See_Comment [Au tomated message] = 6086417548) The system [employer] generated this result transmit alden reference range : 0.0 - 10.0 /100 WBC s. The reference r josselyn was not used to interpret this result as normal/abnormal . IPF % (test code = 1246547839) Lab Interpretation (test Abnormal code = 07323-1) [facility]22-[facility]-21 14:46:08 Test Item Value Reference Range Interpretation Comments POCT GLU (test code = 7584973184) 157 mg/dL 70-110 H Lab Interpretation (test code = Abnormal 88146-2) [facility] METABOLIC PANEL (NA, K, CL, CO2, GLUCOSE, BUN, CREATININE, CA)2022-02-21 09:05:34 Test Item Value Reference Range Interpretation Comments NA (test code = 143 mmol/L 135-145 4213945530) K (test code = 3.8 mmol/L 3.5-5 4984706214) CL (test code = 99 mmol/L 98-108 7082213196) CO2 TOTAL (test code = 37 mmol/L 23-31 H 0110661202) AGAP (test code = 2-16 8463920446) BUN (test code = 17 mg/dL 7-23 9346910911) GLUCOSE (test code = 140 mg/dL 70-110 H 1771980057) CREATININE (test code = 0.85 mg/dL 0.5-1.04 3721213265) CALCIUM (test code = 8.9 mg/dL 8.6-10.6 6617778126) eGFR (test code = mL/min/1.73m2 7721718195) JENNIFFER (test code = JENNIFFER) Association of [...] tests). Lab Interpretation Abnormal (test code = 62953-1) [facility] 08:53:13 Test Item Value Reference Range Interpretation Comments MAGNESIUM (test code = 1698884490) 2.3 mg/dL 1.7-2.4 Lab Interpretation (test code = Normal 85905-3) [facility] WITH [id number] 08:13:50 Test Item Value Reference Range Interpretation [...] (test code = 51.5 fL 39-49.9 H 91184-3) RDW-CV (test code = 15.5 % 12-15.5 788-0) PLT (test code = See_Comment L [Automated 777-3) message] The sy stem which generated this result transmitted reference range : 166 - 358 10*3/ ?L. The reference r josselyn was not used to interpret this result as normal/abnormal . MPV (test code = 9.0 fL 9.5-12.9 L 96680-4) NRBC/100 WBC (test See_Comment [Automat ed code = 7266330380) message] The system which generated this result transmitted reference range : 0.0 - 10.0 /100 WBCs. The refer ence range was not u sed to interpret th is result as normal/abnormal . NRBC x10^3 (test code See_Comment [Auto mated = 3590477047) message] The s ystem which generated this result transmitted reference range : 10*3/?L. The reference range was not used to interpret this result as normal/abnormal . GRAN MAT (NEUT) % 68.2 % (test code = 770-8) IMM GRAN % (test code 0.60 % = 8593021761) LYMPH % (test code = 20.0 % 736-9) MONO % (test code = 8.1 % 5905-5) EOS % (test code = 2.0 % 713-8) BASO % (test code = 1.1 % 706-2) GRAN MAT x10^3(ANC) 3.72 10*3/uL 1.88-7.09 (test code = 7718088427) IMM GRAN x10^3 (test 0.03 10*3/uL 0-0.06 code = 8888314570) LYMPH x10^3 (test code 1.09 10*3/uL 1.32-3.29 L = 731-0) MONO x10^3 (test code 0.44 10*3/uL 0.33-0.92 = 742-7) EOS x10^3 (test code = 0.11 10*3/uL 0.03-0.39 711-2) BASO x10^3 (test code 0.06 10*3/uL 0.01-0.07 = 704-7) Lab Interpretation Abnormal (test code = 15573-5) [facility] 02:41:53 Test Item Value Reference Range Interpretation Comments POCT GLU (test code = 8138698474) 175 mg/dL 70-110 H Lab Interpretation (test code = Abnormal 18839-2) [facility] Arterial Blood Gas.2022-02-20 23:27:23 Test Item Value Reference Range Interpretation Comments PH (test code = 2) 7.35-7.45 L PCO2 (test code = See_Comment H [Automate d message] [id number]) The system [employer] generated this result transmitted ref erence range: 35 - 45 mmHg. The reference r josselyn was not used to interpret this result as normal/abnor mal. PO2 (test code = See_Comment H [Automated message] 1247272216) The system [employer] generated this result transmitted ref erence range: 80 - 100 mmHg. The reference r josselyn was not used to interpret this result as normal/abnor mal. HCO3 (test code = See_Comment H [Automate d message] 1375447202) The system whic h generated this result transmitted ref erence range: 22 - 26 mEq/L. The reference r josselyn was not used to interpret this result as normal/abnor mal. BE (test code = See_Comment H [Automated message] 3007392992) The system [employer] h generated this result transmitted ref erence range: -3.0 - 3 .0 mEq/L. The refe rence range was not u sed to interpret this result as normal/abnor mal. Lab Interpretation (test Abnormal code = 60658-7) [facility] WITH [id number] 20:32:34 Test Item Value Reference Range Interpretation [...] (test code = 51.8 fL 39-49.9 H 20317-7) RDW-CV (test code = 15.7 % 12-15.5 H 788-0) PLT (test code = See_Comment [Automated 777-3) message] The sy stem which generated this result transmitted reference range : 166 - 358 10*3/ ?L. The reference r josselyn was not used to interpret this result as normal/abnormal . MPV (test code = 8.9 fL 9.5-12.9 L 31477-6) NRBC/100 WBC (test See_Comment [Automat ed code = 1158134165) message] The system which generated this result transmitted reference range : 0.0 - 10.0 /100 WBCs. The refer ence range was not u sed to interpret th is result as normal/abnormal . NRBC x10^3 (test code See_Comment [Auto mated = 0754673101) message] The s ystem which generated this result transmitted reference range : 10*3/?L. The reference range was not used to interpret this result as normal/abnormal . GRAN MAT (NEUT) % 72.1 % (test code = 770-8) IMM GRAN % (test code 1.20 % = 8286843764) LYMPH % (test code = 16.2 % 736-9) MONO % (test code = 7.1 % 5905-5) EOS % (test code = 2.3 % 713-8) BASO % (test code = 1.1 % 706-2) GRAN MAT x10^3(ANC) 7.28 10*3/uL 1.88-7.09 H (test code = 2786634694) IMM GRAN x10^3 (test 0.12 10*3/uL 0-0.06 H code = 1241881851) LYMPH x10^3 (test code 1.63 10*3/uL 1.32-3.29 = 731-0) MONO x10^3 (test code 0.72 10*3/uL 0.33-0.92 = 742-7) EOS x10^3 (test code = 0.23 10*3/uL 0.03-0.39 711-2) BASO x10^3 (test code 0.11 10*3/uL 0.01-0.07 H = 704-7) Lab Interpretation Abnormal (test code = 80036-3) [facility] GLUCOSE (AUTOMATED)2022-02-17 21:46:17 Test Item Value Reference Range Interpretation Comments POCT GLU (test code = 8725978742) 181 mg/dL 70-110 H Lab Interpretation (test code = Abnormal 40182-5) [facility] GLUCOSE (AUTOMATED)2022-02-17 17:09:48 Test Item Value Reference Range Interpretation Comments POCT GLU (test code = 4582670647) 191 mg/dL 70-110 H Lab Interpretation (test code = Abnormal 73877-6) [facility] GLUCOSE (AUTOMATED)2022-02-17 13:07:24 Test Item Value Reference Range Interpretation Comments POCT GLU (test code = 6767147248) 185 mg/dL 70-110 H Lab Interpretation (test code = Abnormal 69007-7) [facility] Culture - Peripheral # [id number] 02:02:05 Test Item Value Reference Range Interpretation Comments Blood Culture-Aerobic No organisms No growth Previo us (test code = 58556-2) isolated prelim inary verified result was Culture [...] Culture-Anaerobic isolated preliminar y (test code = 14395-1) verifi ed result was Culture In Progress [...] CDT Lab Interpretation Normal (test code = 46430-7) [facility] GLUCOSE (AUTOMATED)2022-02-17 00:50:32 Test Item Value Reference Range Interpretation Comments POCT GLU (test code = 9698895007) 152 mg/dL 70-110 H Lab Interpretation (test code = Abnormal 34734-1) [facility] GLUCOSE (AUTOMATED)2022-02-16 21:47:16 Test Item Value Reference Range Interpretation Comments POCT GLU (test code = 3062271334) 183 mg/dL 70-110 H Lab Interpretation (test code = Abnormal 65785-2) [facility] GLUCOSE (AUTOMATED)2022-02-16 17:08:26 Test Item Value Reference Range Interpretation Comments POCT GLU (test code = 3573595285) 160 mg/dL 70-110 H Lab Interpretation (test code = Abnormal 78716-9) [facility] GLUCOSE (AUTOMATED)2022-02-16 13:06:01 Test Item Value Reference Range Interpretation Comments POCT GLU (test code = 9268163806) 140 mg/dL 70-110 H Lab Interpretation (test code = Abnormal 06682-8) [facility] GLUCOSE (AUTOMATED)2022-02-16 08:33:41 Test Item Value Reference Range Interpretation Comments POCT GLU (test code = 6005607059) 193 mg/dL 70-110 H Lab Interpretation (test code = Abnormal 41869-6) [facility] GLUCOSE (AUTOMATED)2022-02-16 04:30:38 Test Item Value Reference Range Interpretation Comments POCT GLU (test code = 6077019094) 167 mg/dL 70-110 H Lab Interpretation (test code = Abnormal 29658-4) [facility] GLUCOSE (AUTOMATED)2022-02-16 00:40:50 Test Item Value Reference Range Interpretation Comments POCT GLU (test code = 9494668937) 190 mg/dL 70-110 H Lab Interpretation (test code = Abnormal 67455-4) [facility] GLUCOSE (AUTOMATED)2022-02-15 21:26:07 Test Item Value Reference Range Interpretation Comments POCT GLU (test code = 1660538412) 189 mg/dL 70-110 H Lab Interpretation (test code = Abnormal 75186-0) [facility] GLUCOSE (AUTOMATED)2022-02-15 17:00:52 Test Item Value Reference Range Interpretation Comments POCT GLU (test code = 5928915253) 213 mg/dL 70-110 H Lab Interpretation (test code = Abnormal 77540-8) [facility] GLUCOSE (AUTOMATED)2022-02-15 12:48:04 Test Item Value Reference Range Interpretation Comments POCT GLU (test code = 4916299219) 145 mg/dL 70-110 H Lab Interpretation (test code = Abnormal 51684-5) [facility]. METABOLIC PANEL (53189)2022-02-15 08:28:08 Test Item Value Reference Range Interpretation Comments NA (test code = 140 mmol/L 135-145 2187518998) K (test code = 4.0 mmol/L 3.5-5 3213811539) CL (test code = 100 mmol/L 98-108 3094425659) CO2 TOTAL (test code = 35 mmol/L 23-31 H 1450734473) AGAP (test code = 2-16 4288206355) BUN (test code = 12 mg/dL 7-23 2749191346) GLUCOSE (test code = 161 mg/dL 70-110 H 9223072490) CREATININE (test code = 1.20 mg/dL 0.5-1.04 H 1297217430) TOTAL BILI (test code = 0.6 mg/dL 0.1-1.1 5079069733) CALCIUM (test code = 8.7 mg/dL 8.6-10.6 5295737283) T PROTEIN (test code = 6.8 g/dL 6.3-8.2 4302228287) ALBUMIN (test code = 3.7 g/dL 3.5-5 5338810239) ALK PHOS (test code = 121 U/L 34-122 1017980064) ALTv (test code = 35 U/L 5-35 1742-6) AST(SGOT) (test code = 34 U/L 13-40 8078345434) eGFR (test code = mL/min/1.73m2 2219962802) JENNIFFER (test code = JENNIFFER) Association of [...] tests). Lab Interpretation Abnormal (test code = 14028-2) [facility] Test Item Value Reference Range Interpretation Comments MAGNESIUM (test code = 6737079870) 2.4 mg/dL 1.7-2.4 Lab Interpretation (test code = Normal 73278-6) [facility] [id number] 08:07:28 Test Item Value Reference Range Interpretation Comments WBC (test code = 6690-2) See_Comment [A utomated message] The system [employer] generated this result transmit alden reference range : 4.30 - 11.10 10*3/?L. The reference range was not used to interpret this result as normal/abnormal . RBC (test code = 789-8) See_Comment L [Au tomated message] The system [employer] generated this result transmit alden reference range [...] 777-3) See_Comment [Au tomated message] The system [employer] generated this result transmit alden reference range : 166 - 358 10*3/?L. The reference range was not used to interpret this result as normal/abnormal . MPV (test code = 8.9 fL 9.5-12.9 L 20054-5) RDW-CV (test code = 16.2 % 12-15.5 H 788-0) RDW-SD (test code = 52.6 fL 39-49.9 H 81248-8) NRBC x10^3 (test code = See_Comment [Au tomated message] 9978016613) The system [employer] generated this result transmit alden reference range : 10*3/?L. The reference range was not used to interpret this result as normal/abnormal . NRBC/100 WBC (test code See_Comment [Au tomated message] = 8771882625) The system [employer] generated this result transmit alden reference range : 0.0 - 10.0 /100 WBC s. The reference r josselyn was not used to interpret this result as normal/abnormal . IPF % (test code = 0083893914) Lab Interpretation (test Abnormal code = 84765-9) [facility] GLUCOSE (AUTOMATED)2022-02-15 08:03:53 Test Item Value Reference Range Interpretation Comments POCT GLU (test code = 9263491181) 179 mg/dL 70-110 H Lab Interpretation (test code = Abnormal 04601-9) [facility] GLUCOSE (AUTOMATED)2022-02-15 04:16:20 Test Item Value Reference Range Interpretation Comments POCT GLU (test code = 7060956082) 215 mg/dL 70-110 H Lab Interpretation (test code = Abnormal 36349-6) [facility] GLUCOSE (AUTOMATED)2022-02-15 00:50:30 Test Item Value Reference Range Interpretation Comments POCT GLU (test code = 5539752183) 229 mg/dL 70-110 H Lab Interpretation (test code = Abnormal 97483-8) [facility] GLUCOSE (AUTOMATED)2022-02-14 21:23:56 Test Item Value Reference Range Interpretation Comments POCT GLU (test code = 4841923091) 214 mg/dL 70-110 H Lab Interpretation (test code = Abnormal 20422-8) [facility] GLUCOSE (AUTOMATED)2022-02-14 19:38:54 Test Item Value Reference Range Interpretation Comments POCT GLU (test code = 3830840246) 236 mg/dL 70-110 H Lab Interpretation (test code = Abnormal 11983-7) [facility] GLUCOSE (AUTOMATED)2022-02-14 16:28:53 Test Item Value Reference Range Interpretation Comments POCT GLU (test code = 4037106390) 245 mg/dL 70-110 H Lab Interpretation (test code = Abnormal 23300-1) [facility] GLUCOSE (AUTOMATED)2022-02-14 14:17:55 Test Item Value Reference Range Interpretation Comments POCT GLU (test code = 1165587925) 259 mg/dL 70-110 H Lab Interpretation (test code = Abnormal 81278-0) [facility]. METABOLIC PANEL (24820)2022-02-14 10:33:43 Test Item Value Reference Range Interpretation Comments NA (test code = 139 mmol/L 135-145 9884084052) K (test code = 3.9 mmol/L 3.5-5 0758308334) CL (test code = 102 mmol/L 98-108 4468374931) CO2 TOTAL (test code = 33 mmol/L 23-31 H 1549140770) AGAP (test code = 2-16 4897338668) BUN (test code = 11 mg/dL 7-23 5735095275) GLUCOSE (test code = 162 mg/dL 70-110 H 9448721532) CREATININE (test code = 1.05 mg/dL 0.5-1.04 H 9797727751) TOTAL BILI (test code = 0.5 mg/dL 0.1-1.6 7603935971) CALCIUM (test code = 8.2 mg/dL 8.6-10.6 L 7108601398) T PROTEIN (test code = 6.1 g/dL 6.3-8.2 L 4217417360) ALBUMIN (test code = 3.2 g/dL 3.5-5 L 9217007096) ALK PHOS (test code = 113 U/L 34-122 6342537019) ALTv (test code = 37 U/L 5-35 H 1742-6) AST(SGOT) (test code = 29 U/L 13-40 8544231463) eGFR (test code = mL/min/1.73m2 9512275941) JENNIFFER (test code = JENNIFFER) Association of [...] tests). Lab Interpretation Abnormal (test code = 51378-4) [facility] 10:33:43 Test Item Value Reference Range Interpretation Comments MAGNESIUM (test code = 3407141918) 2.2 mg/dL 1.7-2.4 Lab Interpretation (test code = Normal 25165-7) [facility] WITH [id number] 10:26:41 Test Item Value Reference Range Interpretation [...] (test code = 51.8 fL 39-49.9 H 31714-2) RDW-CV (test code = 16.1 % 12-15.5 H 788-0) PLT (test code = See_Comment [Automated 777-3) message] The sy stem which generated this result transmitted reference range : 166 - 358 10*3/ ?L. The reference r josselyn was not used to interpret this result as normal/abnormal . MPV (test code = 9.5 fL 9.5-12.9 44247-2) NRBC/100 WBC (test See_Comment [Automat ed code = 7472139665) message] The system which generated this result transmitted reference range : 0.0 - 10.0 /100 WBCs. The refer ence range was not u sed to interpret th is result as normal/abnormal . NRBC x10^3 (test code See_Comment [Auto mated = 5274143756) message] The s ystem which generated this result transmitted reference range : 10*3/?L. The reference range was not used to interpret this result as normal/abnormal . GRAN MAT (NEUT) % 69.7 % (test code = 770-8) IMM GRAN % (test code 0.80 % = 7418460756) LYMPH % (test code = 19.6 % 736-9) MONO % (test code = 6.9 % 5905-5) EOS % (test code = 2.2 % 713-8) BASO % (test code = 0.8 % 706-2) GRAN MAT x10^3(ANC) 3.44 10*3/uL 1.88-7.09 (test code = 8151487967) IMM GRAN x10^3 (test 0.04 10*3/uL 0-0.06 code = 6868521058) LYMPH x10^3 (test code 0.97 10*3/uL 1.32-3.29 L = 731-0) MONO x10^3 (test code 0.34 10*3/uL 0.33-0.92 = 742-7) EOS x10^3 (test code = 0.11 10*3/uL 0.03-0.39 711-2) BASO x10^3 (test code 0.04 10*3/uL 0.01-0.07 = 704-7) Lab Interpretation Abnormal (test code = 81382-8) [facility] GLUCOSE (AUTOMATED)2022-02-14 08:19:03 Test Item Value Reference Range Interpretation Comments POCT GLU (test code = 1868351426) 180 mg/dL 70-110 H Lab Interpretation (test code = Abnormal 81967-2) [facility] GLUCOSE (AUTOMATED)2022-02-14 04:28:25 Test Item Value Reference Range Interpretation Comments POCT GLU (test code = 8434734303) 199 mg/dL 70-110 H Lab Interpretation (test code = Abnormal 51138-7) [facility] GLUCOSE (AUTOMATED)2022-02-14 00:57:11 Test Item Value Reference Range Interpretation Comments POCT GLU (test code = 2088850499) 203 mg/dL 70-110 H Lab Interpretation (test code = Abnormal 66825-8) [facility] GLUCOSE (AUTOMATED)2022-02-13 22:30:21 Test Item Value Reference Range Interpretation Comments POCT GLU (test code = 0882928491) 202 mg/dL 70-110 H Lab Interpretation (test code = Abnormal 50868-2) [facility] GLUCOSE (AUTOMATED)2022-02-13 17:30:07 Test Item Value Reference Range Interpretation Comments POCT GLU (test code = 6870861472) 180 mg/dL 70-110 H Lab Interpretation (test code = Abnormal 43729-6) [facility] GLUCOSE (AUTOMATED)2022-02-13 15:53:46 Test Item Value Reference Range Interpretation Comments POCT GLU (test code = 1627260198) 170 mg/dL 70-110 H Lab Interpretation (test code = Abnormal 82003-2) [facility] Arterial Blood Gas.2022-02-13 14:26:25 Test Item Value Reference Range Interpretation Comments PH (test code = 2) 7.35-7.45 PCO2 (test code = See_Comment [Automate d message] 5008296021) The system [employer] generated this result transmitted ref erence range: 35 - 45 mmHg. The reference r josselyn was not used to interpret this result as normal/abnor mal. PO2 (test code = See_Comment L [Automated message] 9141741396) The system [employer] generated this result transmitted ref erence range: 80 - 100 mmHg. The reference r josselyn was not used to interpret this result as normal/abnor mal. HCO3 (test code = See_Comment H [Automate d message] 9443186894) The system [employer] generated this result transmitted ref erence range: 22 - 26 mEq/L. The reference r josselyn was not used to interpret this result as normal/abnor mal. BE (test code = See_Comment [Automated message] 1911632203) The system [employer] generated this result transmitted ref erence range: -3.0 - 3 .0 mEq/L. The refe rence range was not u sed to interpret this result as normal/abnor mal. Lab Interpretation (test Abnormal code = 29113-0) [facility] GLUCOSE (AUTOMATED)2022-02-13 14:09:26 Test Item Value Reference Range Interpretation Comments POCT GLU (test code = 0811707801) 145 mg/dL 70-110 H Lab Interpretation (test code = Abnormal 02921-7) [facility] GLUCOSE (AUTOMATED)2022-02-13 12:46:36 Test Item Value Reference Range Interpretation Comments POCT GLU (test code = 2168978016) 133 mg/dL 70-110 H Lab Interpretation (test code = Abnormal 95874-6) [facility] GLUCOSE (AUTOMATED)2022-02-13 11:45:25 Test Item Value Reference Range Interpretation Comments POCT GLU (test code = 6433459863) 127 mg/dL 70-110 H Lab Interpretation (test code = Abnormal 55071-5) [facility] METABOLIC PANEL (NA, K, CL, CO2, GLUCOSE, BUN, CREATININE, CA)2022-02-13 11:17:34 Test Item Value Reference Range Interpretation Comments NA (test code = 140 mmol/L 135-145 7662020376) K (test code = 3.8 mmol/L 3.5-5 0301662661) CL (test code = 103 mmol/L 98-108 0467420010) CO2 TOTAL (test code = 35 mmol/L 23-31 H 5833667726) AGAP (test code = 2-16 0752155463) BUN (test code = 14 mg/dL 7-23 2287616965) GLUCOSE (test code = 107 mg/dL 70-110 0140837879) CREATININE (test code = 0.94 mg/dL 0.5-1.04 2549195407) CALCIUM (test code = 8.2 mg/dL 8.6-10.6 L 5283494590) eGFR (test code = mL/min/1.73m2 8070196751) JENNIFFER (test code = JENNIFFER) Association of [...] tests). Lab Interpretation Abnormal (test code = 12846-5) [facility] 11:17:34 Test Item Value Reference Range Interpretation Comments MAGNESIUM (test code = 6406006033) 2.1 mg/dL 1.7-2.4 Lab Interpretation (test code = Normal 36783-0) [facility] WITH [id number] 10:41:15 Test Item Value Reference Range Interpretation [...] (test code = 50.6 fL 39-49.9 H 51076-8) RDW-CV (test code = 15.6 % 12-15.5 H 788-0) PLT (test code = See_Comment [Automated 777-3) message] The sy stem which generated this result transmitted reference range : 166 - 358 10*3/ ?L. The reference r josselyn was not used to interpret this result as normal/abnormal . MPV (test code = 9.5 fL 9.5-12.9 86999-9) NRBC/100 WBC (test See_Comment [Automat ed code = 0564367476) message] The system which generated this result transmitted reference range : 0.0 - 10.0 /100 WBCs. The refer ence range was not u sed to interpret th is result as normal/abnormal . NRBC x10^3 (test code See_Comment [Auto mated = 4427473711) message] The s ystem which generated this result transmitted reference range : 10*3/?L. The reference range was not used to interpret this result as normal/abnormal . GRAN MAT (NEUT) % 74.0 % (test code = 770-8) IMM GRAN % (test code 0.50 % = 5689837528) LYMPH % (test code = 15.7 % 736-9) MONO % (test code = 7.4 % 5905-5) EOS % (test code = 1.7 % 713-8) BASO % (test code = 0.7 % 706-2) GRAN MAT x10^3(ANC) 4.37 10*3/uL 1.88-7.09 (test code = 5183451111) IMM GRAN x10^3 (test 0.03 10*3/uL 0-0.06 code = 9456040304) LYMPH x10^3 (test code 0.93 10*3/uL 1.32-3.29 L = 731-0) MONO x10^3 (test code 0.44 10*3/uL 0.33-0.92 = 742-7) EOS x10^3 (test code = 0.10 10*3/uL 0.03-0.39 711-2) BASO x10^3 (test code 0.04 10*3/uL 0.01-0.07 = 704-7) Lab Interpretation Abnormal (test code = 88954-7) [facility] GLUCOSE (AUTOMATED)2022-02-13 09:46:08 Test Item Value Reference Range Interpretation Comments POCT GLU (test code = 6039603816) 118 mg/dL 70-110 H Lab Interpretation (test code = Abnormal 27961-2) [facility] GLUCOSE (AUTOMATED)2022-02-13 08:49:55 Test Item Value Reference Range Interpretation Comments POCT GLU (test code = 3631584997) 122 mg/dL 70-110 H Lab Interpretation (test code = Abnormal 24847-6) [facility]-13 08:00:27 Test Item Value Reference Range Interpretation Comments POCT GLU (test code = 4190548159) 140 mg/dL 70-110 H Lab Interpretation (test code = Abnormal 60441-3) [facility] GLUCOSE (AUTOMATED)2022-02-13 07:07:01 Test Item Value Reference Range Interpretation Comments POCT GLU (test code = 9763810110) 155 mg/dL 70-110 H Lab Interpretation (test code = Abnormal 29453-1) [facility] GLUCOSE (AUTOMATED)2022-02-13 05:57:42 Test Item Value Reference Range Interpretation Comments POCT GLU (test code = 2526795106) 186 mg/dL 70-110 H Lab Interpretation (test code = Abnormal 22109-4) [facility] GLUCOSE (AUTOMATED)2022-02-13 03:40:10 Test Item Value Reference Range Interpretation Comments POCT GLU (test code = 3045120294) 245 mg/dL 70-110 H Lab Interpretation (test code = Abnormal 26017-8) [facility] GLUCOSE (AUTOMATED)2022-02-13 03:35:28 Test Item Value Reference Range Interpretation Comments POCT GLU (test code = 3278600083) 239 mg/dL 70-110 H Lab Interpretation (test code = Abnormal 53723-4) [facility] GLUCOSE (AUTOMATED)2022-02-13 01:48:01 Test Item Value Reference Range Interpretation Comments POCT GLU (test code = 0688178490) 184 mg/dL 70-110 H Lab Interpretation (test code = Abnormal 59039-2) [facility] GLUCOSE (AUTOMATED)2022-02-13 00:35:17 Test Item Value Reference Range Interpretation Comments POCT GLU (test code = 2694793053) 166 mg/dL 70-110 H Lab Interpretation (test code = Abnormal 79961-6) [facility] GLUCOSE (AUTOMATED)2022-02-12 23:26:35 Test Item Value Reference Range Interpretation Comments POCT GLU (test code = 5466261320) 149 mg/dL 70-110 H Lab Interpretation (test code = Abnormal 44082-1) [facility] GLUCOSE (AUTOMATED)2022-02-12 22:21:08 Test Item Value Reference Range Interpretation Comments POCT GLU (test code = 7368266233) 133 mg/dL 70-110 H Lab Interpretation (test code = Abnormal 92038-6) [facility] GLUCOSE (AUTOMATED)2022-02-12 21:06:47 Test Item Value Reference Range Interpretation Comments POCT GLU (test code = 7814798836) 130 mg/dL 70-110 H Lab Interpretation (test code = Abnormal 64969-6) [facility] GLUCOSE (AUTOMATED)2022-02-12 20:04:32 Test Item Value Reference Range Interpretation Comments POCT GLU (test code = 9708706845) 122 mg/dL 70-110 H Lab Interpretation (test code = Abnormal 66350-9) [facility] GLUCOSE (AUTOMATED)2022-02-12 19:08:55 Test Item Value Reference Range Interpretation Comments POCT GLU (test code = 2734118260) 133 mg/dL 70-110 H Lab Interpretation (test code = Abnormal 65738-1) [facility] GLUCOSE (AUTOMATED)2022-02-12 18:20:07 Test Item Value Reference Range Interpretation Comments POCT GLU (test code = 5023251039) 136 mg/dL 70-110 H Lab Interpretation (test code = Abnormal 77658-9) [facility] GLUCOSE (AUTOMATED)2022-02-12 17:19:20 Test Item Value Reference Range Interpretation Comments POCT GLU (test code = 5469754596) 155 mg/dL 70-110 H Lab Interpretation (test code = Abnormal 90565-7) [facility] GLUCOSE (AUTOMATED)2022-02-12 16:21:39 Test Item Value Reference Range Interpretation Comments POCT GLU (test code = 5513348641) 143 mg/dL 70-110 H Lab Interpretation (test code = Abnormal 05895-6) [facility] 16:14:56 Test Item Value Reference Range Interpretation Comments BOH (test code = 0.2 mmol/L 3974538143) JENNIFFER (test code = Normal Ranges: ? ? JENNIFFER) Nonfasting ? Less than 0.1 mmol/L ? ? Overnight Fast ? ? ? Less than 0.4 mmol/L ? ? Fasting (1-2 weeks) ?6-8 mmol/L Test developed and characteristics determined by [facility] [[email or web address]] Laboratory Services. [facility] GLUCOSE (AUTOMATED)2022-02-12 15:53:18 Test Item Value Reference Range Interpretation Comments POCT GLU (test code = 6950751092) 70-110 HH Lab Interpretation (test code = Abnormal 25438-3) [facility] GLUCOSE (AUTOMATED)2022-02-12 14:17:34 Test Item Value Reference Range Interpretation Comments POCT GLU (test code = 4000796856) 232 mg/dL 70-110 H Lab Interpretation (test code = Abnormal 74835-7) [facility] GLUCOSE (AUTOMATED)2022-02-12 13:17:46 Test Item Value Reference Range Interpretation Comments POCT GLU (test code = 5860058211) 295 mg/dL 70-110 H Lab Interpretation (test code = Abnormal 40819-6) [facility] METABOLIC PANEL (NA, K, CL, CO2, GLUCOSE, BUN, CREATININE, CA)2022-02-12 12:56:38 Test Item Value Reference Range Interpretation Comments NA (test code = 138 mmol/L 135-145 6222401558) K (test code = 4.0 mmol/L 3.5-5 3618655533) CL (test code = 98 mmol/L 98-108 5435130066) CO2 TOTAL (test code = 31 mmol/L 23-31 2938031616) AGAP (test code = 2-16 0523824946) BUN (test code = 20 mg/dL 7-23 1041983963) GLUCOSE (test code = 279 mg/dL 70-110 H 9157393496) CREATININE (test code = 1.08 mg/dL 0.5-1.04 H 8906838504) CALCIUM (test code = 8.8 mg/dL 8.6-10.6 3280073369) eGFR (test code = mL/min/1.73m2 3920981400) JENNIFFER (test code = JENNIFFER) Association of [...] tests). Lab Interpretation Abnormal (test code = 39294-7) [facility] GLUCOSE (AUTOMATED)2022-02-12 12:44:19 Test Item Value Reference Range Interpretation Comments POCT GLU (test code = 0783070846) 299 mg/dL 70-110 H Lab Interpretation (test code = Abnormal 71469-7) [facility] GLUCOSE (AUTOMATED)2022-02-12 12:19:29 Test Item Value Reference Range Interpretation Comments POCT GLU (test code = 4314040779) 283 mg/dL 70-110 H Lab Interpretation (test code = Abnormal 85246-2) [facility] GLUCOSE (AUTOMATED)2022-02-12 11:22:10 Test Item Value Reference Range Interpretation Comments POCT GLU (test code = 5249056292) 378 mg/dL 70-110 H Lab Interpretation (test code = Abnormal 33049-2) [facility] GLUCOSE (AUTOMATED)2022-02-12 10:18:29 Test Item Value Reference Range Interpretation Comments POCT GLU (test code = 0905626771) 376 mg/dL 70-110 H Lab Interpretation (test code = Abnormal 41518-0) [facility]sm[facility] [id number] 09:27:10 Test Item Value Reference Range Interpretation Comments OSMOLALITY (test code = See_Comment [Au tomated message] 2692-2) The system [employer] generated this result transmitted ref erence range: 278 - 30 5 mOsm/kg. The reference range was not used to int erpret this result as normal/abnormal . Lab Interpretation (test Abnormal code = 34785-3) [facility] METABOLIC PANEL (NA, K, CL, CO2, GLUCOSE, BUN, CREATININE, CA)2022-02-12 09:22:44 Test Item Value Reference Range Interpretation Comments NA (test code = 135 mmol/L 135-145 4743183277) K (test code = 4.7 mmol/L 3.5-5 6077376872) CL (test code = 93 mmol/L 98-108 L 6493397399) CO2 TOTAL (test code = 33 mmol/L 23-31 H 2455044404) AGAP (test code = 2-16 6462282252) BUN (test code = 22 mg/dL 7-23 5769179439) GLUCOSE (test code = 474 mg/dL 70-110 HH 6433523613) CREATININE (test code = 1.17 mg/dL 0.5-1.04 H 7281268259) CALCIUM (test code = 8.9 mg/dL 8.6-10.6 2100255366) eGFR (test code = mL/min/1.73m2 7824976294) JENNIFFER (test code = JENNIFFER) Association of [...] tests). Lab Interpretation Abnormal (test code = 20051-6) [facility]12 09:19:06 Test Item Value Reference Range Interpretation Comments POCT GLU (test code = 3027145964) 478 mg/dL 70-110 HH Lab Interpretation (test code = Abnormal 48181-5) [facility]2022-[facility]-21 09:16:19 Test Item Value Reference Range Interpretation Comments PHOSPHORUS (test code = 6900464753) 5.9 mg/dL 2.5-5 H Lab Interpretation (test code = Abnormal 55391-2) [facility]2022-[facility]-21 09:16:19 Test Item Value Reference Range Interpretation Comments MAGNESIUM (test code = 9121482086) 2.1 mg/dL 1.7-2.4 Lab Interpretation (test code = Normal 08014-4) [facility]ballGlycosylated Hemoglobin (A1C)2022-02-12 09:10:46 Test Item Value Reference Range Interpretation Comments HGB A1C (test code = 9.7 % 4-5.7 H 4548-4) JENNIFFER (test code = JENNIFFER) Reference RangesNormal: <5.7%Prediabetes: 5.7 - 6.4%Diabetes: > 6.5% Lab Interpretation (test Abnormal code = 23502-0) [facility] WITH [id number] 08:28:29 Test Item Value Reference Range Interpretation [...] RDW-SD (test code = 49.8 fL 39-49.9 94915-9) RDW-CV (test code = 15.7 % 12-15.5 H 788-0) PLT (test code = See_Comment [Automated 777-3) message] The system which generated this result transmit alden reference range : 166 - 358 10*3/ ?L. The reference range was not u sed to interpret th is result as normal/abnormal . MPV (test code = 9.7 fL 9.5-12.9 99525-9) NRBC/100 WBC (test See_Comment [Automat ed code = 8684181612) message] The system which generated this result transmit alden reference range : 0.0 - 10.0 /100 WBCs. The reference range was not used to interpret this result as normal/abnormal . NRBC x10^3 (test code See_Comment [Auto mated = 2898759475) message] The system which generated this result transmit alden reference range : 10*3/?L. The reference range was not used to interpret this result as normal/abnormal . GRAN MAT (NEUT) % 89.9 % (test code = 770-8) IMM GRAN % (test code 0.90 % = 1605027458) LYMPH % (test code = 3.4 % 736-9) MONO % (test code = 5.3 % 5905-5) EOS % (test code = 0.1 % 713-8) BASO % (test code = 0.4 % 706-2) GRAN MAT x10^3(ANC) 11.94 10*3/uL 1.88-7.09 H (test code = 8114119630) IMM GRAN x10^3 (test 0.12 10*3/uL 0-0.06 H code = 9070820681) LYMPH x10^3 (test code 0.45 10*3/uL 1.32-3.29 L = 731-0) MONO x10^3 (test code 0.70 10*3/uL 0.33-0.92 = 742-7) EOS x10^3 (test code = 0.03-0.39 L 711-2) BASO x10^3 (test code 0.05 10*3/uL 0.01-0.07 = 704-7) Lab Interpretation Abnormal (test code = 40766-8) [facility] GLUCOSE (AUTOMATED)2022-02-12 04:57:17 Test Item Value Reference Range Interpretation Comments POCT GLU (test code = 7038400209) 592 mg/dL 70-110 HH Lab Interpretation (test code = Abnormal 74858-5) [facility] GLUCOSE (AUTOMATED)2022-02-12 04:57:17 Test Item Value Reference Range Interpretation Comments POCT GLU (test code = 2029425286) 559 mg/dL 70-110 HH Lab Interpretation (test code = Abnormal 57765-2) [facility]ballTHYROID STIMULATING [id number] 02:15:56 Test Item Value Reference Range Interpretation Comments TSH (test code = See_Comment [Automated message] 0194614037) The system [employer] generated this result transmitted ref erence range: 0.45 - 4 .70 mIU/L. The refe rence range was not u sed to interpret this result as normal/abnor mal. Lab Interpretation (test Normal code = 98705-1) [facility]ballFR [id number] 02:02:37 Test Item Value Reference Range Interpretation Comments FREE T4 (test code = See_Comment [Autom ated message] 4835046460) The system [employer] generated this result transmitted ref erence range: 0.78 - 2 .20 ng/dL:. The ref erence range was not u sed to interpret this result as normal/abnor mal. Lab Interpretation (test Normal code = 67576-7) [facility] TomballBELINDANIN [id number] 01:57:33 Test Item Value Reference Interpretation Comments Range TROPONIN I (test 0.001 ng/mL See_Comment [Automated code = 4398212576) message] The system which generated this result [...] biotin. Lab Interpretation Normal (test code = 93926-8) [facility]. METABOLIC PANEL (06850)2022-02-12 01:55:07 Test Item Value Reference Range Interpretation Comments NA (test code = 134 mmol/L 135-145 L 8329174066) K (test code = 4.4 mmol/L 3.5-5 7354250225) CL (test code = 95 mmol/L 98-108 L 0165423532) CO2 TOTAL (test code = 22 mmol/L 23-31 L 3876972702) AGAP (test code = 2-16 H 5783064879) BUN (test code = 22 mg/dL 7-23 8336371022) GLUCOSE (test code = 646 mg/dL 70-110 HH 5948278637) CREATININE (test code = 1.19 mg/dL 0.5-1.04 H 6763619891) TOTAL BILI (test code = 1.1 mg/dL 0.1-1.6 9065335547) CALCIUM (test code = 9.1 mg/dL 8.6-10.6 6273642344) T PROTEIN (test code = 7.0 g/dL 6.3-8.2 7212931846) ALBUMIN (test code = 4.1 g/dL 3.5-5 1306523013) ALK PHOS (test code = 245 U/L 34-122 H 8356039921) ALTv (test code = 78 U/L 5-35 H 1742-6) AST(SGOT) (test code = 76 U/L 13-40 H 1557401843) eGFR (test code = mL/min/1.73m2 7940196258) JENNIFFER (test code = JENNIFFER) Association of [...] tests). Lab Interpretation Abnormal (test code = 65309-5) [facility]ballN-TERMINAL [id number] 01:54:57 Test Item Value Reference Range Interpretation Comments NT-proBNP (test code 491 pg/mL See_Comment H [Autom ated = 2739061351) message] The system which generated this result transmitted reference range : <=125. The reference range was not used to interpret this result as normal/abnormal . JENNIFFER (test code = JENNIFFER) Biotin has been reported to cause a negative bias, interpret results relative to patient's use of biotin. Lab Interpretation Abnormal (test code = 18036-8) [facility] TomballETHANOL2022-07-21 01:47:18 ALCOHOL<10mg/dL02/11/2022 8:[address] [facility]<10 Aiehdzfx15-851 Toxic>100 Depression of MECHANOTHERAPIST>[address] [facility] [place], [place]AM[place], [id number] 01:46:13 Test Item Value Reference Range Interpretation Comments AMMONIA (test code = 3118035182) 28 umol/L 9-33 Lab Interpretation (test code = Normal 25667-5) [facility] TomballACTIVATED PARTIAL THRMPLAS [id number] 01:39:11 Test Item Value Reference Range Interpretation Comments APTT Patient (test See_Comment [Automat ed code = 3173-2) message] The system which generated this result transmitted reference range : 23 - 38 Seconds . The reference range was not used to interpr et this result as normal/abnormal . JENNIFFER (test code = JENNIFFER) The [email or web address] patient population mean normal value for aPTT is 30 seconds. Lab Interpretation Normal (test code = 33517-9) [facility]ballCBC WITH [id number] 01:37:15 Test Item Value Reference Range Interpretation Comments WBC (test code = See_Comment H [Automated 3190-2) message] The sy stem which generated this result transmitted reference range : 4.30 - 11.10 10*3/?L. The reference range was not used to interpret this result as normal/abnormal . RBC (test code = See_Comment L [Automated 179-8) message] The sy stem which generated this [...] (test code = 50.9 fL 39-49.9 H 00836-8) RDW-CV (test code = 15.8 % 12-15.5 H 788-0) PLT (test code = See_Comment [Automated 777-3) message] The sy stem which generated this result transmitted reference range : 166 - 358 10*3/ ?L. The reference r josselyn was not used to interpret this result as normal/abnormal . MPV (test code = 9.9 fL 9.5-12.9 32315-5) NRBC/100 WBC (test See_Comment [Automat ed code = 7237895718) message] The system which generated this result transmitted reference range : 0.0 - 10.0 /100 WBCs. The refer ence range was not u sed to interpret th is result as normal/abnormal . NRBC x10^3 (test code See_Comment [Auto mated = 1259088040) message] The s ystem which generated this result transmitted reference range : 10*3/?L. The reference range was not used to interpret this result as normal/abnormal . GRAN MAT (NEUT) % 78.5 % (test code = 770-8) IMM GRAN % (test code 1.20 % = 1638114666) LYMPH % (test code = 12.2 % 736-9) MONO % (test code = 6.4 % 5905-5) EOS % (test code = 1.0 % 713-8) BASO % (test code = 0.7 % 706-2) GRAN MAT x10^3(ANC) 8.80 10*3/uL 1.88-7.09 H (test code = 3222813179) IMM GRAN x10^3 (test 0.14 10*3/uL 0-0.06 H code = 4245369896) LYMPH x10^3 (test code 1.37 10*3/uL 1.32-3.29 = 731-0) MONO x10^3 (test code 0.72 10*3/uL 0.33-0.92 = 742-7) EOS x10^3 (test code = 0.11 10*3/uL 0.03-0.39 711-2) BASO x10^3 (test code 0.08 10*3/uL 0.01-0.07 H = 704-7) Lab Interpretation Abnormal (test code = 66800-4) [facility] TomballPROTHROMBIN TIME / [id number] 01:36:50 Test Item Value Reference Range Interpretation Comments PROTIME PATIENT (test See_Comment [Auto mated message] code = 5964-2) The system Scayl ich generated this result transmitted ref erence range: 12.0 - 1 4.7 Seconds. The re ference range was not u sed to interpret this result as normal/abnor mal. INR (test code = 6301-6) Nor mal INR <1.1; Warfarin Therap eutic range 2.0 to 3. 0 or 2.5 to 3.5, dep ending upon the indica tions. Lab Interpretation (test Normal code = 88672-3) [facility]2022-01-31 18:41:03 Test Item Value Reference Range Interpretation Comments POCT GLU (test code = 4748948737) 241 mg/dL 70-110 H Lab Interpretation (test code = Abnormal 68326-9) [facility] TomballSPUTUM [id number] 14:36:01 Test Item Value Reference Range Interpretation Comments SPUTUM CULTURE 1+ Respiratory iveht: (test code = 622-1) Commensal upper respiratory microorganisms only. Gram stain (test Few Epithelial cells code = 664-3) JENNIFFER (test code = Bacterial pathogens JENNIFFER) associated with lower respiratory infections were not identified, which include Pseudomonas aeruginosa and Staphylococcus aureus (MRSA or MSSA). [facility]ballN-TERMINAL [id number] 14:27:39 Test Item Value Reference Range Interpretation Comments NT-proBNP (test code 2930 pg/mL See_Comment H [Autom ated = 1360727187) message] The system which generated this result transmitted reference range : <=125. The reference range was not used to interpret this result as normal/abnormal . JENNIFFER (test code = JENNIFFER) Biotin has been reported to cause a negative bias, interpret results relative to patient's use of biotin. Lab Interpretation Abnormal (test code = 10771-0) [facility]ball[facility] GLU[facility]SE (AUTOMATED)2022-01-31 13:06:37 Test Item Value Reference Range Interpretation Comments POCT GLU (test code = 4484418811) 144 mg/dL 70-110 H Lab Interpretation (test code = Abnormal 78453-8) [facility] METABOLIC PANEL (NA, K, CL, CO2, GLUCOSE, BUN, CREATININE, CA)2022-01-31 11:52:51 Test Item Value Reference Range Interpretation Comments NA (test code = 139 mmol/L 135-145 8177678602) K (test code = 4.2 mmol/L 3.5-5.0 8414829958) CL (test code = 92 mmol/L 98-108 L 5789465183) CO2 TOTAL (test code = 39 mmol/L 23-31 H 1530044516) AGAP (test code = 2-16 8815790539) BUN (test code = 32 mg/dL 7-23 H 3033075107) GLUCOSE (test code = 183 mg/dL 70-110 H 3528776015) CREATININE (test code = 0.89 mg/dL 0.50-1.04 6783625122) CALCIUM (test code = 8.7 mg/dL 8.6-10.6 9814636049) eGFR (test code = mL/min/1.73m2 7394940737) JENNIFFER (test code = JENNIFFER) Association of [...] tests). Lab Interpretation Abnormal (test code = 16865-7) [facility]ballMAGNESIUM2022-07-09 11:45:09 Test Item Value Reference Range Interpretation Comments MAGNESIUM (test code = 8791191379) 2.4 mg/dL 1.7-2.4 Lab Interpretation (test code = Normal 40306-2) [facility]ballPHOSPHORUS2022-07-09 11:44:49 Test Item Value Reference Range Interpretation Comments PHOSPHORUS (test code = 2866445004) 3.3 mg/dL 2.5-5.0 Lab Interpretation (test code = Normal 14222-5) [facility] GLUCOSE (AUTOMATED)2022-01-30 21:23:07 Test Item Value Reference Range Interpretation Comments POCT GLU (test code = 4778594305) 357 mg/dL 70-110 H Lab Interpretation (test code = Abnormal 73414-1) [facility] GLUCOSE (AUTOMATED)2022-01-30 17:39:07 Test Item Value Reference Range Interpretation Comments POCT GLU (test code = 1285811521) 183 mg/dL 70-110 H Lab Interpretation (test code = Abnormal 94355-9) [facility] GLUCOSE (AUTOMATED)2022-01-30 17:39:07 Test Item Value Reference Range Interpretation Comments POCT GLU (test code = 6353710687) 275 mg/dL 70-110 H Lab Interpretation (test code = Abnormal 04155-0) [facility] GLUCOSE (AUTOMATED)2022-01-30 13:42:50 Test Item Value Reference Range Interpretation Comments POCT GLU (test code = 4425430264) 187 mg/dL 70-110 H Lab Interpretation (test code = Abnormal 53196-5) [facility]ballN-TERMINAL [id number] 10:44:07 Test Item Value Reference Range Interpretation Comments NT-proBNP (test code 3180 pg/mL See_Comment H [Autom ated = 3683336326) message] The system which generated this result transmitted reference range : <=125. The reference range was not used to interpret this result as normal/abnormal . JENNIFFER (test code = JENNIFFER) Biotin has been reported to cause a negative bias, interpret results relative to patient's use of biotin. Lab Interpretation Abnormal (test code = 01467-8) [facility]ballCOMP. METABOLIC PANEL (89771)2022-01-30 10:36:27 Test Item Value Reference Range Interpretation Comments NA (test code = 139 mmol/L 135-145 1930037545) K (test code = 3.7 mmol/L 3.5-5.0 5961457687) CL (test code = 92 mmol/L 98-108 L 8117836867) CO2 TOTAL (test code = 37 mmol/L 23-31 H 5320527598) AGAP (test code = 2-16 8137667975) BUN (test code = 22 mg/dL 7-23 2083290475) GLUCOSE (test code = 192 mg/dL 70-110 H 8481131524) CREATININE (test code = 1.04 mg/dL 0.50-1.04 3054549404) TOTAL BILI (test code = 0.7 mg/dL 0.1-1.2 4439628811) CALCIUM (test code = 8.3 mg/dL 8.6-10.6 L 9488289275) T PROTEIN (test code = 6.8 g/dL 6.3-8.2 0404287046) ALBUMIN (test code = 3.7 g/dL 3.5-5.0 6610443079) ALK PHOS (test code = 124 U/L 34-122 H 6832992474) ALTv (test code = 28 U/L 5-35 1742-6) AST(SGOT) (test code = 24 U/L 13-40 3392414539) eGFR (test code = mL/min/1.73m2 7218858572) JENNIFFER (test code = JENNIFFER) Association of [...] tests). Lab Interpretation Abnormal (test code = 04060-0) [facility] WITH [id number] 09:41:38 Test Item Value Reference Range Interpretation Comments WBC (test code = See_Comment [Automated 1775-2) message] The sy stem which generated this result transmitted reference range : 4.30 - 11.10 10*3/?L. The reference range was not used to interpret this result as normal/abnormal . RBC (test code = See_Comment L [Automated 385-3) message] The sy stem which generated this [...] RDW-SD (test code = 47.8 fL 39.0-49.9 63971-2) RDW-CV (test code = 15.0 % 12.0-15.5 788-0) PLT (test code = See_Comment [Automated 777-3) message] The sy stem which generated this result transmitted reference range : 166 - 358 10*3/ ?L. The reference r josselyn was not used to interpret this result as normal/abnormal . MPV (test code = 9.1 fL 9.5-12.9 L 01937-2) NRBC/100 WBC (test See_Comment [Automat ed code = 1072316663) message] The system which generated this result transmitted reference range : 0.0 - 10.0 /100 WBCs. The refer ence range was not u sed to interpret th is result as normal/abnormal . NRBC x10^3 (test code <0.01 See_Comment [Auto mated = 1083223719) message] The s ystem which generated this result transmitted reference range : 10*3/?L. The reference range was not used to interpret this result as normal/abnormal . GRAN MAT (NEUT) % 85.7 % (test code = 770-8) IMM GRAN % (test code 0.60 % = 3250464000) LYMPH % (test code = 7.1 % 736-9) MONO % (test code = 6.1 % 5905-5) EOS % (test code = 0.1 % 713-8) BASO % (test code = 0.4 % 706-2) GRAN MAT x10^3(ANC) 7.16 10*3/uL 1.88-7.09 H (test code = 0016993080) IMM GRAN x10^3 (test 0.05 10*3/uL 0.00-0.06 code = 1178960567) LYMPH x10^3 (test code 0.59 10*3/uL 1.32-3.29 L = 731-0) MONO x10^3 (test code 0.51 10*3/uL 0.33-0.92 = 742-7) EOS x10^3 (test code = <0.03 0.03-0.39 L 711-2) BASO x10^3 (test code 0.03 10*3/uL 0.01-0.07 = 704-7) Lab Interpretation Abnormal (test code = 60605-5) [facility] GLUCOSE (AUTOMATED)2022-01-30 03:06:20 Test Item Value Reference Range Interpretation Comments POCT GLU (test code = 2705512122) 336 mg/dL 70-110 H Lab Interpretation (test code = Abnormal 70511-9) [facility]2022-07-07 21:35:38 Test Item Value Reference Range Interpretation Comments PHOSPHORUS (test code = 5755469758) 4.3 mg/dL 2.5-5.0 Lab Interpretation (test code = Normal 19752-0) [facility] GLUCOSE (AUTOMATED)2022-01-29 21:21:35 Test Item Value Reference Range Interpretation Comments POCT GLU (test code = 0057804414) 354 mg/dL 70-110 H Lab Interpretation (test code = Abnormal 59540-6) [facility] GLUCOSE (AUTOMATED)2022-01-29 16:10:10 Test Item Value Reference Range Interpretation Comments POCT GLU (test code = 2989142437) 240 mg/dL 70-110 H Lab Interpretation (test code = Abnormal 37978-2) [facility] GLUCOSE (AUTOMATED)2022-01-29 15:16:07 Test Item Value Reference Range Interpretation Comments POCT GLU (test code = 7546436206) 219 mg/dL 70-110 H Lab Interpretation (test code = Abnormal 86701-5) [facility] GLUCOSE (AUTOMATED)2022-01-29 13:06:22 Test Item Value Reference Range Interpretation Comments POCT GLU (test code = 0454147105) 176 mg/dL 70-110 H Lab Interpretation (test code = Abnormal 92396-7) [facility]. METABOLIC PANEL (87618)2022-01-29 10:31:34 Test Item Value Reference Range Interpretation Comments NA (test code = 141 mmol/L 135-145 4830444606) K (test code = 4.2 mmol/L 3.5-5.0 0808547398) CL (test code = 96 mmol/L 98-108 L 4115746904) CO2 TOTAL (test code = 37 mmol/L 23-31 H 3247364971) AGAP (test code = 2-16 7613379041) BUN (test code = 20 mg/dL 7-23 4436351171) GLUCOSE (test code = 179 mg/dL 70-110 H 2380377470) CREATININE (test code = 0.90 mg/dL 0.50-1.04 7321671932) TOTAL BILI (test code = 0.7 mg/dL 0.1-1.1 0823573870) CALCIUM (test code = 8.3 mg/dL 8.6-10.6 L 1297145921) T PROTEIN (test code = 7.3 g/dL 6.3-8.2 0580424845) ALBUMIN (test code = 3.9 g/dL 3.5-5.0 5463413048) ALK PHOS (test code = 151 U/L 34-122 H 1839169004) ALTv (test code = 44 U/L 5-35 H 1742-6) AST(SGOT) (test code = 54 U/L 13-40 H 7380270990) eGFR (test code = mL/min/1.73m2 4096866653) JENNIFFER (test code = JENNIFFER) Association of [...] tests). Lab Interpretation Abnormal (test code = 30722-3) [facility] [id number] 10:06:38 Test Item Value Reference Range Interpretation Comments NT-proBNP (test code 3080 pg/mL See_Comment H [Autom ated = 3560596404) message] The system which generated this result transmitted reference range : <=125. The reference range was not used to interpret this result as normal/abnormal . JENNIFFER (test code = JENNIFFER) Biotin has been reported to cause a negative bias, interpret results relative to patient's use of biotin. Lab Interpretation Abnormal (test code = 15500-2) [facility]2022-07-07 09:58:35 Test Item Value Reference Range Interpretation Comments MAGNESIUM (test code = 9212757534) 1.8 mg/dL 1.7-2.4 Lab Interpretation (test code = Normal 51472-4) [facility] WITH [id number] 09:47:53 Test Item Value Reference Range Interpretation Comments WBC (test code = See_Comment H [Automated 0990-2) message] The system which generated this result transmit alden reference range : 4.30 - 11.10 10*3/?L. The reference range was not used to interpret this result as normal/abnormal . RBC (test code = See_Comment L [Automated 919-8) message] The system which generated this result [...] (test code = 50.9 fL 39.0-49.9 H 00316-1) RDW-CV (test code = 15.5 % 12.0-15.5 788-0) PLT (test code = See_Comment [Automated 777-3) message] The system which generated this result transmit alden reference range : 166 - 358 10*3/ ?L. The reference range was not u sed to interpret th is result as normal/abnormal . MPV (test code = 9.9 fL 9.5-12.9 87614-3) NRBC/100 WBC (test See_Comment [Automat ed code = 4431228446) message] The system which generated this result transmit alden reference range : 0.0 - 10.0 /100 WBCs. The reference range was not used to interpret this result as normal/abnormal . NRBC x10^3 (test code <0.01 See_Comment [Auto mated = 8729335407) message] The system which generated this result transmit alden reference range : 10*3/?L. The reference range was not used to interpret this result as normal/abnormal . GRAN MAT (NEUT) % 87.2 % (test code = 770-8) IMM GRAN % (test code 0.50 % = 9157986024) LYMPH % (test code = 5.6 % 736-9) MONO % (test code = 5.9 % 5905-5) EOS % (test code = 0.4 % 713-8) BASO % (test code = 0.4 % 706-2) GRAN MAT x10^3(ANC) 10.37 10*3/uL 1.88-7.09 H (test code = 8831427082) IMM GRAN x10^3 (test 0.06 10*3/uL 0.00-0.06 code = 2753386040) LYMPH x10^3 (test code 0.66 10*3/uL 1.32-3.29 L = 731-0) MONO x10^3 (test code 0.70 10*3/uL 0.33-0.92 = 742-7) EOS x10^3 (test code = 0.05 10*3/uL 0.03-0.39 711-2) BASO x10^3 (test code 0.05 10*3/uL 0.01-0.07 = 704-7) Lab Interpretation Abnormal (test code = 00911-9) [facility] GLUCOSE (AUTOMATED)2022-01-29 05:48:29 Test Item Value Reference Range Interpretation Comments POCT GLU (test code = 5648740137) 297 mg/dL 70-110 H Lab Interpretation (test code = Abnormal 69035-2) [facility] GLUCOSE (AUTOMATED)2022-01-29 05:48:29 Test Item Value Reference Range Interpretation Comments POCT GLU (test code = 0394666919) 282 mg/dL 70-110 H Lab Interpretation (test code = Abnormal 85920-4) [facility] GLUCOSE (AUTOMATED)2022-01-28 23:35:33 Test Item Value Reference Range Interpretation Comments POCT GLU (test code = 1392513724) 302 mg/dL 70-110 H Lab Interpretation (test code = Abnormal 31899-4) [facility], [id number] 23:17:54 Test Item Value Reference Range Interpretation Comments VIT B12 (test code = 265 pg/mL 240-930 0932481373) JENNIFFER (test code = JENNIFFER) Biotin has been reported to cause a positive bias, interpret results relative to patient's use of biotin. Lab Interpretation (test Normal code = 69350-0) [facility]AL[facility]IN2022-07-06 20:35:43 Test Item Value Reference Range Interpretation Comments Procalcitonin (test 0.13 ng/mL <0.07 H code = 6988799069) JENNIFFER (test code = JENNIFFER) INTERPRETATION OF [...] lung abscess/empyema. For further information please refer to:[email or web address] Lab Interpretation Abnormal (test code = 19122-0) [facility] D, [id number] 20:34:43 Test Item Value Reference Range Interpretation Comments VIT D 25OH (test code = 23 ng/mL 25-80 L 95297-7) JENNIFFER (test code = JENNIFFER) Deficiency: <20 ng/mLInsufficiency: 20-24 ng/mLOptimal: 25-80 ng/mL Lab Interpretation (test Abnormal code = 31407-1) [facility] [id number] 18:15:31 Test Item Value Reference Interpretation Comments Range TROPONIN I (test 0.003 ng/mL See_Comment [Automated code = 2034180057) message] The system which generated this result [...] biotin. Lab Interpretation Normal (test code = 90279-5) [facility]ball[facility] [id number] 18:04:12 Test Item Value Reference Range Interpretation Comments URIC ACID (test code = 9487681961) 9.3 mg/dL 2.9-6.0 H Lab Interpretation (test code = Abnormal 00906-2) [facility]ballTransthoracic echo (TTE)2022-01-28 17:57:52 Test Item Value Reference Range Interpretation Comments Height (test code = in 0543427197) Weight (test code = lbs 7467594377) Systolic BP (test code = mmHg 9505655081) Diastolic BP (test code = mmHg 2551249124) Heart Rate (test code = bpm 4754600196) Ao root annulus (test 3.1 cm code = 8609762351) Ao root diam (test code = 3.10 cm 9852523465) Aortic root (test code = 3.1 cm 9723069897) LA size (test code = 4.9 cm 5031442553) LVOT diameter (test code 2.10 cm = 5788811314) E wave decelartion time 0.25 s (test code = 7860558474) MV Peak E Marva (test code 83.7 cm/s = 6995128241) MV Peak A Marva (test code 66.0 cm/s = 2427818296) E/A ratio (test code = ratio 8359833553) MV E/e' septal (test code 8.2 cm/s = 4135477354) Tapse (test code = 1.68 cm 1849144524) Aortic valve mean 77.4 cm/s velocity (test code = 4939468094) Ao peak marva (test code = 124.6 cm/s 2357212302) Ao VTI (test code = 20.7 cm 2914426162) Ao max PG (test code = 6.20 mm[Hg] 5035933363) AV peak gradient (test mmHg code = 9344592020) AV mean gradient (test mmHg code = 5503271737) LVOT stroke volume (test 62.00 cm3 code = 0484476225) LVOT peak marva (test code 104.3 cm/s = 8433776295) LVOT mn grad (test code = mmHg 2917911877) AV LVOT peak gradient mmHg (test code = 6840221967) LVOT peak VTI (test code 17.9 cm = 5071924597) AV area by cont VTI (test 3.0 cm2 code = 5222172342) AV area peak marva (test 2.9 cm2 code = 3954621916) LV V1 mean (test code = 63.60 cm/s 6237908865) AV valve area (test code 3.00 cm2 = 8276798711) LVIDD (test code = 5.20 cm 1764118191) IVS (test code = 0.79 cm 1777404274) Interventricular Septum 0.79 cm Diastolic Thickness by 2D (test code = 7749362) LVPWD (test code = 0.66 cm 9567502257) PW (test code = 0.66 cm 0.6-1.7 4352473847) EF(Teich) (test code = 48.60 % 8017682596) LVIDS (test code = 3.90 cm 1016985436) FS (test code = 25 % 2758988958) EF - 2D (test code = 48.60 % 51012309) Radiology Study observation (narrative) (test code = 39495-4) JENNIFFER (test code = JENNIFFER) ?Left?Ventricle: Normal systolic function with a visually estimated EF of 60 - 65%. ?Tricuspid?Valve: Insufficient regurgant jet to estimate RVSP. ?RA pressure is 10-15 mmHg. VitalsHeight Weight BSA (Calculated - sq m) BP Pulse 5' 1" (1.549 m) 230 lb (104.3 kg) 2.12 sq meters 118/66 96 [facility] [id number] 14:19:29 Test Item Value Reference Interpretation Comments Range TROPONIN I (test 0.003 ng/mL See_Comment [Automated code = 3671458649) message] The system which generated this result [...] biotin. Lab Interpretation Normal (test code = 71885-3) [facility]ballN-TERMINAL [id number] 14:16:29 Test Item Value Reference Range Interpretation Comments NT-proBNP (test code 1170 pg/mL See_Comment H [Autom ated = 3495314287) message] The system which generated this result transmitted reference range : <=125. The reference range was not used to interpret this result as normal/abnormal . JENNIFFER (test code = JENNIFFER) Biotin has been reported to cause a negative bias, interpret results relative to patient's use of biotin. Lab Interpretation Abnormal (test code = 22023-2) [facility] TomballIRON [id number] 14:14:29 Test Item Value Reference Range Interpretation Comments IRON (test code = 0634972902) 42 ug/dL 50-160 L TIBC (test code = 6560856197) 299 ug/dL 250-410 % FE SAT (test code = 8544310083) 14 % 20-50 L Lab Interpretation (test code = Abnormal 88367-1) [facility] GLUCOSE (AUTOMATED)2022-01-28 14:00:04 Test Item Value Reference Range Interpretation Comments POCT GLU (test code = 9738555106) 197 mg/dL 70-110 H Lab Interpretation (test code = Abnormal 94656-3) [facility] GLUCOSE (AUTOMATED)2022-01-28 13:01:52 Test Item Value Reference Range Interpretation Comments POCT GLU (test code = 5012939255) 211 mg/dL 70-110 H Lab Interpretation (test code = Abnormal 51776-0) [facility]ballFERRITIN [id number] 13:00:31 Test Item Value Reference Range Interpretation Comments FERRITIN (test code = 86.8 ng/mL 11.0-264.0 7761184385) JENNIFFER (test code = JENNIFFER) Biotin has been reported to cause a negative bias, interpret results relative to patient's use of biotin. Lab Interpretation (test Normal code = 79670-1) [facility] TomballTHYROID STIMULATING [id number] 12:56:35 Test Item Value Reference Range Interpretation Comments TSH (test code = See_Comment [Automated message] 9690025801) The system [employer] generated this result transmitted ref erence range: 0.45 - 4 .70 mIU/L. The refe rence range was not u sed to interpret this result as normal/abnor mal. Lab Interpretation (test Normal code = 86888-5) [facility] TomballSEDIMENTATION [id number] 12:41:55 Test Item Value Reference Range Interpretation Comments ESR (test code = See_Comment H [Automated message] 3239590489) The system [employer] generated this result transmitted ref erence range: 0 - 20 m m/HR. The reference r josselyn was not used to interpret this result as normal/abnor mal. Lab Interpretation (test Abnormal code = 60789-8) [facility]ballTROPONIN [id number] 12:38:13 Test Item Value Reference Interpretation Comments Range TROPONIN I (test 0.003 ng/mL See_Comment [Automated code = 4414330116) message] The system which generated this result [...] biotin. Lab Interpretation Normal (test code = 44749-1) [facility]ballN-TERMINAL [id number] 12:34:52 Test Item Value Reference Range Interpretation Comments NT-proBNP (test code 1150 pg/mL See_Comment H [Autom ated = 7299100261) message] The system which generated this result transmitted reference range : <=125. The reference range was not used to interpret this result as normal/abnormal . JENNIFFER (test code = JENNIFFER) Biotin has been reported to cause a negative bias, interpret results relative to patient's use of biotin. Lab Interpretation Abnormal (test code = 20360-9) [facility] TomballLIPID PANEL (45811)(TOTAL CHOLESTEROL, TRIGLYCERIDES, HDL)2022-01-28 12:26:13 Test Item Value Reference Range Interpretation Comments CHOL (test code = 122 mg/dL 120-200 4603408058) HDL (test code = 27 mg/dL >50 L 7736935725) HDLC RATIO (test code = See_Comment [Au tomated message] 0548000965) The system [employer] generated this result transmit alden reference range : <=4.5. The refe rence range was not u sed to interpret th is result as normal/abnormal . TRIG (test code = 249 mg/dL 30-170 H 5018697131) LDL CHOL (test code = 45 mg/dL See_Comment [Auto mated message] 51966-2) The system [employer] generated this result transmit alden reference range : <=160. The refe rence range was not u sed to interpret th is result as normal/abnormal . VLDL (test code = 50 mg/dL 5-60 5742432667) Lab Interpretation (test Abnormal code = 29670-5) [facility]ballMAGNESIUM2022-07-06 12:26:13 Test Item Value Reference Range Interpretation Comments MAGNESIUM (test code = 2007654181) 1.9 mg/dL 1.7-2.4 Lab Interpretation (test code = Normal 59398-5) [facility]ballCOMP. METABOLIC PANEL (38044)2022-01-28 12:25:53 Test Item Value Reference Range Interpretation Comments NA (test code = 141 mmol/L 135-145 8642780828) K (test code = 4.9 mmol/L 3.5-5.0 4678683502) CL (test code = 101 mmol/L 98-108 3228111948) CO2 TOTAL (test code = 32 mmol/L 23-31 H 3935756334) AGAP (test code = 2-16 9208979346) BUN (test code = 20 mg/dL 7-23 2164912724) GLUCOSE (test code = 217 mg/dL 70-110 H 3956542425) CREATININE (test code = 1.05 mg/dL 0.50-1.04 H 0826902104) TOTAL BILI (test code = 0.7 mg/dL 0.1-1.6 8638288926) CALCIUM (test code = 8.5 mg/dL 8.6-10.6 L 0157015301) T PROTEIN (test code = 7.2 g/dL 6.3-8.2 5616681057) ALBUMIN (test code = 3.9 g/dL 3.5-5.0 6366975334) ALK PHOS (test code = 161 U/L 34-122 H 7616466883) ALTv (test code = 50 U/L 5-35 H 1742-6) AST(SGOT) (test code = 61 U/L 13-40 H 2945729197) eGFR (test code = mL/min/1.73m2 5206051881) JENNIFFER (test code = JENNIFFER) Association of [...] tests). Lab Interpretation Abnormal (test code = 89741-1) [facility]ballPHOSPHORUS2022-07-06 12:25:53 Test Item Value Reference Range Interpretation Comments PHOSPHORUS (test code = 5199739510) 5.3 mg/dL 2.5-5.0 H Lab Interpretation (test code = Abnormal 12963-2) [facility]ballURIC [id number] 12:25:33 Test Item Value Reference Range Interpretation Comments URIC ACID (test code = 2052513032) 9.5 mg/dL 2.9-6.0 H Lab Interpretation (test code = Abnormal 60460-1) [facility] TomballCREATINE [id number] 12:25:13 Test Item Value Reference Range Interpretation Comments CK (test code = 4642448078) 27 U/L 33-194 L Lab Interpretation (test code = Abnormal 98375-2) [facility] TomballGLYCOSYLATED HEMOGLOBIN (A1C)2022-01-28 07:50:20 Test Item Value Reference Range Interpretation Comments HGB A1C (test code = 8.9 % 4.0-5.7 H 4548-4) JENNIFFER (test code = JENNIFFER) Reference RangesNormal: <5.7%Prediabetes: 5.7 - 6.4%Diabetes: > 6.5% Lab Interpretation (test Abnormal code = 13424-8) [facility]ballTROPONIN [id number] 03:04:27 Test Item Value Reference Interpretation Comments Range TROPONIN I (test 0.002 ng/mL See_Comment [Automated code = 5794676832) message] The system which generated this result [...] biotin. Lab Interpretation Normal (test code = 66260-5) [facility]ballN-TERMINAL [id number] 03:01:09 Test Item Value Reference Range Interpretation Comments NT-proBNP (test code 358 pg/mL See_Comment H [Autom ated = 9029839951) message] The system which generated this result transmitted reference range : <=125. The reference range was not used to interpret this result as normal/abnormal . JENNIFFER (test code = JENNIFFER) Biotin has been reported to cause a negative bias, interpret results relative to patient's use of biotin. Lab Interpretation Abnormal (test code = 21679-9) [facility] TomballACTIVATED PARTIAL THRMPLAS [id number] 02:54:28 Test Item Value Reference Range Interpretation Comments APTT Patient (test See_Comment [Automat ed code = 3173-2) message] The system which generated this result transmitted reference range : 23 - 38 Seconds . The reference range was not used to interpr et this result as normal/abnormal . JENNIFFER (test code = JENNIFFER) The [email or web address] patient population mean normal value for aPTT is 30 seconds. Lab Interpretation Normal (test code = 52719-9) [facility]ballCOMP. METABOLIC PANEL (69203)2022-01-28 02:52:27 Test Item Value Reference Range Interpretation Comments NA (test code = 137 mmol/L 135-145 2339452364) K (test code = 5.0 mmol/L 3.5-5.0 9578972368) CL (test code = 101 mmol/L 98-108 9111223656) CO2 TOTAL (test code = 22 mmol/L 23-31 L 3667824251) AGAP (test code = 2-16 0253313335) BUN (test code = 21 mg/dL 7-23 2165877398) GLUCOSE (test code = 334 mg/dL 70-110 H 7267703008) CREATININE (test code = 1.03 mg/dL 0.50-1.04 7873326395) TOTAL BILI (test code = 0.8 mg/dL 0.1-1.9 9832499759) CALCIUM (test code = 9.0 mg/dL 8.6-10.6 6232822694) T PROTEIN (test code = 7.3 g/dL 6.3-8.2 0749896826) ALBUMIN (test code = 4.2 g/dL 3.5-5.0 2650794872) ALK PHOS (test code = 186 U/L 34-122 H 0715949848) ALTv (test code = 53 U/L 5-35 H 1742-6) AST(SGOT) (test code = 98 U/L 13-40 H 4573738636) eGFR (test code = mL/min/1.73m2 9533720203) JENNIFFER (test code = JENNIFFER) Association of [...] tests). Lab Interpretation Abnormal (test code = 46217-7) [facility] TomballPROTHROMBIN TIME / [id number] 02:51:06 Test Item Value Reference Range Interpretation Comments PROTIME PATIENT (test See_Comment [Auto mated message] code = 5964-2) The system [employer] generated this result transmitted ref erence range: 12.0 - 1 4.7 Seconds. The re ference range was not u sed to interpret this result as normal/abnor mal. INR (test code = 6301-6) Nor mal INR <1.1; Warfarin Therap eutic range 2.0 to 3. 0 or 2.5 to 3.5, dep ending upon the indica tions. Lab Interpretation (test Normal code = 92397-4) [facility] WITH [id number] 02:43:03 Test Item Value Reference Range Interpretation [...] RDW-SD (test code = 49.4 fL 39.0-49.9 29617-5) RDW-CV (test code = 15.6 % 12.0-15.5 H 788-0) PLT (test code = See_Comment [Automated 777-3) message] The sy stem which generated this result transmitted reference range : 166 - 358 10*3/ ?L. The reference r josselyn was not used to interpret this result as normal/abnormal . MPV (test code = 9.7 fL 9.5-12.9 30666-1) NRBC/100 WBC (test See_Comment [Automat ed code = 8751512692) message] The system which generated this result transmitted reference range : 0.0 - 10.0 /100 WBCs. The refer ence range was not u sed to interpret th is result as normal/abnormal . NRBC x10^3 (test code <0.01 See_Comment [Auto mated = 5827360739) message] The s ystem which generated this result transmitted reference range : 10*3/?L. The reference range was not used to interpret this result as normal/abnormal . GRAN MAT (NEUT) % 88.0 % (test code = 770-8) IMM GRAN % (test code 0.60 % = 3612358521) LYMPH % (test code = 5.4 % 736-9) MONO % (test code = 4.5 % 5905-5) EOS % (test code = 0.9 % 713-8) BASO % (test code = 0.6 % 706-2) GRAN MAT x10^3(ANC) 9.50 10*3/uL 1.88-7.09 H (test code = 1909143751) IMM GRAN x10^3 (test 0.06 10*3/uL 0.00-0.06 code = 1770844968) LYMPH x10^3 (test code 0.58 10*3/uL 1.32-3.29 L = 731-0) MONO x10^3 (test code 0.49 10*3/uL 0.33-0.92 = 742-7) EOS x10^3 (test code = 0.10 10*3/uL 0.03-0.39 711-2) BASO x10^3 (test code 0.06 10*3/uL 0.01-0.07 = 704-7) Lab Interpretation Abnormal (test code = 34766-6) [facility]. METABOLIC PANEL (53543)2022-01-12 23:54:59 Test Item Value Reference Range Interpretation Comments NA (test code = 143 mmol/L 135-145 4777500562) K (test code = 4.1 mmol/L 3.5-5.0 1487744127) CL (test code = 103 mmol/L 98-108 2776329543) CO2 TOTAL (test code = 27 mmol/L 23-31 4422320923) AGAP (test code = 2-16 2587510920) BUN (test code = 12 mg/dL 7-23 5879533142) GLUCOSE (test code = 278 mg/dL 70-110 H 5742306069) CREATININE (test code = 0.61 mg/dL 0.50-1.04 1731485888) TOTAL BILI (test code = 0.6 mg/dL 0.1-1.1 2913342782) CALCIUM (test code = 9.6 mg/dL 8.6-10.6 0502877732) T PROTEIN (test code = 7.6 g/dL 6.3-8.2 3392189896) ALBUMIN (test code = 4.3 g/dL 3.5-5.0 5647332525) ALK PHOS (test code = 130 U/L 34-122 H 0262585192) ALTv (test code = 29 U/L 5-35 2-6) AST(SGOT) (test code = 39 U/L 13-40 9340682518) eGFR (test code = mL/min/1.73m2 8909574832) JENNIFFER (test code = JENNIFFER) Association of [...] tests). Lab Interpretation Abnormal (test code = 95183-2) [facility] WITH [id number] 23:43:55 Test Item Value Reference Range Interpretation [...] (test code = 47.8 fL 39.0-49.9 Previous 24559-6) preliminary verified result was 48.1 fL on [...] - 358 10*3/ ?L. The reference r josselny was not used to interpret this result as normal/abnormal . MPV (test code = 10.0 fL 9.5-12.9 Previous 92258-2) preliminary verified result was 9.9 fL on 2021 at 1842 CDT IPF % (test code = 3.9 % 1.3-7.7 Platelet count 6761153769) measured by fluorescence method. NRBC/100 WBC (test See_Comment [Automat ed code = 4131352329) message] The system which generated this result transmitted reference range : 0.0 - 10.0 /100 WBCs. The refer ence range was not u sed to interpret th is result as normal/abnormal . NRBC x10^3 (test code <0.01 See_Comment [Auto mated = 9183283766) message] The s ystem which generated this result transmitted reference range : 10*3/?L. The reference range was not used to interpret this result as normal/abnormal . GRAN MAT (NEUT) % 85.9 % (test code = 770-8) IMM GRAN % (test code 0.90 % = 2646161738) LYMPH % (test code = 4.7 % 736-9) MONO % (test code = 5.3 % 5905-5) EOS % (test code = 2.6 % 713-8) BASO % (test code = 0.6 % 706-2) GRAN MAT x10^3(ANC) 6.93 10*3/uL 1.88-7.09 (test code = 8067904726) IMM GRAN x10^3 (test 0.07 10*3/uL 0.00-0.06 H code = 1378592008) LYMPH x10^3 (test code 0.38 10*3/uL 1.32-3.29 L = 731-0) MONO x10^3 (test code 0.43 10*3/uL 0.33-0.92 = 742-7) EOS x10^3 (test code = 0.21 10*3/uL 0.03-0.39 711-2) BASO x10^3 (test code 0.05 10*3/uL 0.01-0.07 = 704-7) Lab Interpretation Abnormal (test code = 02518-7) [facility]ball[facility] PANEL 21 + LACTIC [id number] 23:29:12 Test Item Value Reference Range Interpretation Comments PH (test code = 7.32-7.42 L 5163733684) PCO2 CELIA (test code = See_Comment H [Auto mated 3782804942) message] The sy stem which generated this result transmitted reference range : 41 - 51 mmHg. The reference range was not used to interpret this result as normal/abnormal . PO2 CELIA (test code = See_Comment HH [Autom ated 4589310593) message] The sy stem which generated this result transmitted reference range : 25 - 40 mmHg. The reference range was not used to interpret this result as normal/abnormal . HCO3 CELIA (test code = See_Comment H [Auto mated 8448354640) message] The sy stem which generated this result transmitted reference range : 24 - 28 mEq/L. The reference range was not used to interpret this result as normal/abnormal . AC VBE(BEAKER) (test mEq/L code = 7434237592) THB CELIA (test code = 12.1 g/dL 12.0-16.0 9127578648) %O2HB CELIA (test code = 90.8 % 52.0-63.0 H 3196709370) %COHB CELIA (test code = 0.0 % 0.0-1.5 1704970713) %METHB CELIA (test code = 0.0 % 0.4-1.5 L 7938131911) VOL%O2 CELIA (test code = 15.5 % 6.0-12.0 H 9670752127) NA (test code = 145 mmol/L 135-145 1819546238) K+ (test code = 4.1 mmol/L 3.5-5.0 0115036667) AC CA IONZ (test code = 5.30 mg/dL 4.50-5.30 6545331447) GLUCOSE (test code = 291 mg/dL 70-110 H 1303314610) LACTIC ACID (test code 1.04 mmol/L 0.50-2.20 = 0026105182) Lab Interpretation Abnormal (test code = 58459-8) [facility] GLUCOSE (AUTOMATED)2022-01-12 17:49:50 Test Item Value Reference Range Interpretation Comments POCT GLU (test code = 9456235680) 120 mg/dL 70-110 H Lab Interpretation (test code = Abnormal 76667-4) [facility] GLUCOSE (AUTOMATED)2022-01-12 13:25:37 Test Item Value Reference Range Interpretation Comments POCT GLU (test code = 4625072750) 76 mg/dL 70-110 Lab Interpretation (test code = Normal 15057-1) [facility] GLUCOSE (AUTOMATED)2022-01-12 05:53:23 Test Item Value Reference Range Interpretation Comments POCT GLU (test code = 6195705788) 107 mg/dL 70-110 Lab Interpretation (test code = Normal 16583-3) [facility] GLUCOSE (AUTOMATED)2022-01-11 23:03:13 Test Item Value Reference Range Interpretation Comments POCT GLU (test code = 9605947824) 142 mg/dL 70-110 H Lab Interpretation (test code = Abnormal 84395-8) [facility] GLUCOSE (AUTOMATED)2022-01-11 17:22:09 Test Item Value Reference Range Interpretation Comments POCT GLU (test code = 7174485468) 106 mg/dL 70-110 Lab Interpretation (test code = Normal 96990-9) [facility] GLUCOSE (AUTOMATED)2022-01-11 13:11:20 Test Item Value Reference Range Interpretation Comments POCT GLU (test code = 9211774687) 91 mg/dL 70-110 Lab Interpretation (test code = Normal 28275-1) [facility] METABOLIC PANEL (NA, K, CL, CO2, GLUCOSE, BUN, CREATININE, CA)2022-01-11 11:52:16 Test Item Value Reference Range Interpretation Comments NA (test code = 141 mmol/L 135-145 2721363304) K (test code = 3.7 mmol/L 3.5-5.0 4259766524) CL (test code = 100 mmol/L 98-108 8641648588) CO2 TOTAL (test code 30 mmol/L 23-31 = 6295613612) AGAP (test code = 2-16 0908342250) BUN (test code = 14 mg/dL 7-23 3655218541) GLUCOSE (test code = 85 mg/dL 70-110 8727002946) CREATININE (test code 0.62 mg/dL 0.50-1.04 = 0831731050) CALCIUM (test code = 8.9 mg/dL 8.6-10.6 5922127547) eGFR (test code = mL/min/1.73m2 6817675393) JENNIFFER (test code = JENNIFFER) Association of [...] or urine or abnormalities in imaging tests). [facility]20[facility] 11:52:16 Test Item Value Reference Range Interpretation Comments MAGNESIUM (test code = 8068672253) 1.9 mg/dL 1.7-2.4 Lab Interpretation (test code = Normal 75523-5) [facility]ballPO[facility] GLU[facility]SE (AUTOMATED)2022-01-11 11:36:18 Test Item Value Reference Range Interpretation Comments POCT GLU (test code = 7308078118) 95 mg/dL 70-110 Lab Interpretation (test code = Normal 25737-7) [facility] WITH [id number] 10:51:12 Test Item Value Reference Range Interpretation [...] RDW-SD (test code = 46.5 fL 39.0-49.9 15489-5) RDW-CV (test code = 14.3 % 12.0-15.5 788-0) PLT (test code = See_Comment [Automated 777-3) message] The sy stem which generated this result transmitted reference range : 166 - 358 10*3/ ?L. The reference r josselyn was not used to interpret this result as normal/abnormal . MPV (test code = 8.5 fL 9.5-12.9 L 33586-4) NRBC/100 WBC (test See_Comment [Automat ed code = 1391714841) message] The system which generated this result transmitted reference range : 0.0 - 10.0 /100 WBCs. The refer ence range was not u sed to interpret th is result as normal/abnormal . NRBC x10^3 (test code <0.01 See_Comment [Auto mated = 9341611304) message] The s ystem which generated this result transmitted reference range : 10*3/?L. The reference range was not used to interpret this result as normal/abnormal . GRAN MAT (NEUT) % 72.4 % (test code = 770-8) IMM GRAN % (test code 0.60 % = 1400118892) LYMPH % (test code = 12.0 % 736-9) MONO % (test code = 9.8 % 5905-5) EOS % (test code = 4.4 % 713-8) BASO % (test code = 0.8 % 706-2) GRAN MAT x10^3(ANC) 4.64 10*3/uL 1.88-7.09 (test code = 3676984134) IMM GRAN x10^3 (test 0.04 10*3/uL 0.00-0.06 code = 2889602099) LYMPH x10^3 (test code 0.77 10*3/uL 1.32-3.29 L = 731-0) MONO x10^3 (test code 0.63 10*3/uL 0.33-0.92 = 742-7) EOS x10^3 (test code = 0.28 10*3/uL 0.03-0.39 711-2) BASO x10^3 (test code 0.05 10*3/uL 0.01-0.07 = 704-7) Lab Interpretation Abnormal (test code = 82723-4) [facility] GLUCOSE (AUTOMATED)2022-01-11 04:16:05 Test Item Value Reference Range Interpretation Comments POCT GLU (test code = 1008076212) 100 mg/dL 70-110 Lab Interpretation (test code = Normal 26175-8) [facility] GLUCOSE (AUTOMATED)2022-01-10 22:37:14 Test Item Value Reference Range Interpretation Comments POCT GLU (test code = 3071587659) 109 mg/dL 70-110 Lab Interpretation (test code = Normal 07311-1) [facility] GLUCOSE (AUTOMATED)2022-01-10 16:49:31 Test Item Value Reference Range Interpretation Comments POCT GLU (test code = 6825521190) 151 mg/dL 70-110 H Lab Interpretation (test code = Abnormal 30553-0) [facility] GLUCOSE (AUTOMATED)2022-01-10 13:04:04 Test Item Value Reference Range Interpretation Comments POCT GLU (test code = 6613973581) 133 mg/dL 70-110 H Lab Interpretation (test code = Abnormal 83485-2) [facility] GLUCOSE (AUTOMATED)2022-01-10 10:48:27 Test Item Value Reference Range Interpretation Comments POCT GLU (test code = 5590661811) 140 mg/dL 70-110 H Lab Interpretation (test code = Abnormal 77064-1) [facility] METABOLIC PANEL (NA, K, CL, CO2, GLUCOSE, BUN, CREATININE, CA)2022-01-10 07:43:41 Test Item Value Reference Range Interpretation Comments NA (test code = 139 mmol/L 135-145 7596317750) K (test code = 4.1 mmol/L 3.5-5.0 0534935999) CL (test code = 100 mmol/L 98-108 4388510810) CO2 TOTAL (test code = 32 mmol/L 23-31 H 6776268203) AGAP (test code = 2-16 2077835168) BUN (test code = 18 mg/dL 7-23 1484080032) GLUCOSE (test code = 146 mg/dL 70-110 H 8663542772) CREATININE (test code = 0.79 mg/dL 0.50-1.04 1580933323) CALCIUM (test code = 8.7 mg/dL 8.6-10.6 5741135555) eGFR (test code = mL/min/1.73m2 4548276265) JENNIFFER (test code = JENNIFFER) Association of [...] tests). Lab Interpretation Abnormal (test code = 96975-5) [facility] Test Item Value Reference Range Interpretation Comments MAGNESIUM (test code = 5326139114) 2.1 mg/dL 1.7-2.4 Lab Interpretation (test code = Normal 37314-7) [facility] WITH [id number] 07:29:01 Test Item Value Reference Range Interpretation [...] RDW-SD (test code = 47.2 fL 39.0-49.9 89027-4) RDW-CV (test code = 14.1 % 12.0-15.5 788-0) PLT (test code = See_Comment [Automated 777-3) message] The sy stem which generated this result transmitted reference range : 166 - 358 10*3/ ?L. The reference r josselyn was not used to interpret this result as normal/abnormal . MPV (test code = 8.3 fL 9.5-12.9 L 50827-3) NRBC/100 WBC (test See_Comment [Automat ed code = 1651511528) message] The system which generated this result transmitted reference range : 0.0 - 10.0 /100 WBCs. The refer ence range was not u sed to interpret th is result as normal/abnormal . NRBC x10^3 (test code <0.01 See_Comment [Auto mated = 3298043726) message] The s ystem which generated this result transmitted reference range : 10*3/?L. The reference range was not used to interpret this result as normal/abnormal . GRAN MAT (NEUT) % 75.5 % (test code = 770-8) IMM GRAN % (test code 0.50 % = 8133123768) LYMPH % (test code = 13.6 % 736-9) MONO % (test code = 5.4 % 5905-5) EOS % (test code = 4.4 % 713-8) BASO % (test code = 0.6 % 706-2) GRAN MAT x10^3(ANC) 5.01 10*3/uL 1.88-7.09 (test code = 2389407585) IMM GRAN x10^3 (test 0.03 10*3/uL 0.00-0.06 code = 0103632022) LYMPH x10^3 (test code 0.90 10*3/uL 1.32-3.29 L = 731-0) MONO x10^3 (test code 0.36 10*3/uL 0.33-0.92 = 742-7) EOS x10^3 (test code = 0.29 10*3/uL 0.03-0.39 711-2) BASO x10^3 (test code 0.04 10*3/uL 0.01-0.07 = 704-7) Lab Interpretation Abnormal (test code = 43655-8) [facility] GLUCOSE (AUTOMATED)2022-01-10 04:49:48 Test Item Value Reference Range Interpretation Comments POCT GLU (test code = 8491909517) 150 mg/dL 70-110 H Lab Interpretation (test code = Abnormal 34846-6) [facility] GLUCOSE (AUTOMATED)2022-01-09 17:24:10 Test Item Value Reference Range Interpretation Comments POCT GLU (test code = 7548195105) 114 mg/dL 70-110 H Lab Interpretation (test code = Abnormal 12646-1) [facility] GLUCOSE (AUTOMATED)2022-01-09 12:48:19 Test Item Value Reference Range Interpretation Comments POCT GLU (test code = 9287832810) 107 mg/dL 70-110 Lab Interpretation (test code = Normal 11591-7) [facility] METABOLIC PANEL (NA, K, CL, CO2, GLUCOSE, BUN, CREATININE, CA)2022-01-09 11:11:00 Test Item Value Reference Range Interpretation Comments NA (test code = 141 mmol/L 135-145 0899316199) K (test code = 3.7 mmol/L 3.5-5.0 8671810095) CL (test code = 100 mmol/L 98-108 6597357556) CO2 TOTAL (test code = 32 mmol/L 23-31 H 3478438101) AGAP (test code = 2-16 0826681413) BUN (test code = 19 mg/dL 7-23 2356333456) GLUCOSE (test code = 115 mg/dL 70-110 H 5735516978) CREATININE (test code = 0.81 mg/dL 0.50-1.04 2501222575) CALCIUM (test code = 8.6 mg/dL 8.6-10.6 9806170948) eGFR (test code = mL/min/1.73m2 9626243290) JENNIFFER (test code = JENNIFFER) Association of [...] tests). Lab Interpretation Abnormal (test code = 23215-9) [facility] WITH [id number] 10:57:57 Test Item Value Reference Range Interpretation Comments WBC (test code = See_Comment [Automated 6390-2) message] The sy stem which generated this result transmitted reference range : 4.30 - 11.10 10*3/?L. The reference range was not used to interpret this result as normal/abnormal . RBC (test code = See_Comment L [Automated 545-8) message] The sy stem which generated this [...] RDW-SD (test code = 49.1 fL 39.0-49.9 97617-9) RDW-CV (test code = 14.6 % 12.0-15.5 788-0) PLT (test code = See_Comment [Automated 777-3) message] The sy stem which generated this result transmitted reference range : 166 - 358 10*3/ ?L. The reference r josselyn was not used to interpret this result as normal/abnormal . MPV (test code = 8.6 fL 9.5-12.9 L 68999-2) NRBC/100 WBC (test See_Comment [Automat ed code = 7841917546) message] The system which generated this result transmitted reference range : 0.0 - 10.0 /100 WBCs. The refer ence range was not u sed to interpret th is result as normal/abnormal . NRBC x10^3 (test code <0.01 See_Comment [Auto mated = 8700127323) message] The s ystem which generated this result transmitted reference range : 10*3/?L. The reference range was not used to interpret this result as normal/abnormal . GRAN MAT (NEUT) % 79.2 % (test code = 770-8) IMM GRAN % (test code 0.40 % = 7397003344) LYMPH % (test code = 10.7 % 736-9) MONO % (test code = 5.4 % 5905-5) EOS % (test code = 3.5 % 713-8) BASO % (test code = 0.8 % 706-2) GRAN MAT x10^3(ANC) 6.15 10*3/uL 1.88-7.09 (test code = 9250411293) IMM GRAN x10^3 (test 0.03 10*3/uL 0.00-0.06 code = 6443727580) LYMPH x10^3 (test code 0.83 10*3/uL 1.32-3.29 L = 731-0) MONO x10^3 (test code 0.42 10*3/uL 0.33-0.92 = 742-7) EOS x10^3 (test code = 0.27 10*3/uL 0.03-0.39 711-2) BASO x10^3 (test code 0.06 10*3/uL 0.01-0.07 = 704-7) Lab Interpretation Abnormal (test code = 37178-6) [facility] GLUCOSE (AUTOMATED)2022-01-09 10:44:16 Test Item Value Reference Range Interpretation Comments POCT GLU (test code = 1129669148) 116 mg/dL 70-110 H Lab Interpretation (test code = Abnormal 71109-6) [facility] GLUCOSE (AUTOMATED)2022-01-09 04:22:02 Test Item Value Reference Range Interpretation Comments POCT GLU (test code = 7114229998) 124 mg/dL 70-110 H Lab Interpretation (test code = Abnormal 94294-8) [facility] GLUCOSE (AUTOMATED)2022-01-08 23:21:27 Test Item Value Reference Range Interpretation Comments POCT GLU (test code = 6225047080) 122 mg/dL 70-110 H Lab Interpretation (test code = Abnormal 18591-6) [facility] GLUCOSE (AUTOMATED)2022-01-08 18:15:20 Test Item Value Reference Range Interpretation Comments POCT GLU (test code = 2163019918) 104 mg/dL 70-110 Lab Interpretation (test code = Normal 93301-1) [facility] GLUCOSE (AUTOMATED)2022-01-08 13:35:04 Test Item Value Reference Range Interpretation Comments POCT GLU (test code = 5456265069) 132 mg/dL 70-110 H Lab Interpretation (test code = Abnormal 17473-5) [facility] METABOLIC PANEL (NA, K, CL, CO2, GLUCOSE, BUN, CREATININE, CA)2022-01-08 11:08:57 Test Item Value Reference Range Interpretation Comments NA (test code = 142 mmol/L 135-145 9230808034) K (test code = 3.5 mmol/L 3.5-5.0 1949778919) CL (test code = 99 mmol/L 98-108 1271349582) CO2 TOTAL (test code = 34 mmol/L 23-31 H 2155089816) AGAP (test code = 2-16 2722381585) BUN (test code = 16 mg/dL 7-23 3768452304) GLUCOSE (test code = 131 mg/dL 70-110 H 6556722090) CREATININE (test code = 0.83 mg/dL 0.50-1.04 4174725287) CALCIUM (test code = 8.5 mg/dL 8.6-10.6 L 4663496906) eGFR (test code = mL/min/1.73m2 7569711738) JENNIFFER (test code = JENNIFFER) Association of [...] tests). Lab Interpretation Abnormal (test code = 91111-3) [facility] WITH [id number] 10:58:37 Test Item Value Reference Range Interpretation Comments WBC (test code = See_Comment [Automated 8690-2) message] The sy stem which generated this [...] RDW-SD (test code = 48.8 fL 39.0-49.9 53338-0) RDW-CV (test code = 14.7 % 12.0-15.5 788-0) PLT (test code = See_Comment [Automated 777-3) message] The sy stem which generated this result transmitted reference range : 166 - 358 10*3/ ?L. The reference r josselyn was not used to interpret this result as normal/abnormal . MPV (test code = 8.5 fL 9.5-12.9 L 43985-4) NRBC/100 WBC (test See_Comment [Automat ed code = 5830879931) message] The system which generated this result transmitted reference range : 0.0 - 10.0 /100 WBCs. The refer ence range was not u sed to interpret th is result as normal/abnormal . NRBC x10^3 (test code <0.01 See_Comment [Auto mated = 4477333963) message] The s ystem which generated this result transmitted reference range : 10*3/?L. The reference range was not used to interpret this result as normal/abnormal . GRAN MAT (NEUT) % 75.9 % (test code = 770-8) IMM GRAN % (test code 0.30 % = 5244995451) LYMPH % (test code = 12.3 % 736-9) MONO % (test code = 7.0 % 5905-5) EOS % (test code = 3.6 % 713-8) BASO % (test code = 0.9 % 706-2) GRAN MAT x10^3(ANC) 4.89 10*3/uL 1.88-7.09 (test code = 7039500565) IMM GRAN x10^3 (test <0.03 0.00-0.06 code = 7503295707) LYMPH x10^3 (test code 0.79 10*3/uL 1.32-3.29 L = 731-0) MONO x10^3 (test code 0.45 10*3/uL 0.33-0.92 = 742-7) EOS x10^3 (test code = 0.23 10*3/uL 0.03-0.39 711-2) BASO x10^3 (test code 0.06 10*3/uL 0.01-0.07 = 704-7) Lab Interpretation Abnormal (test code = 29560-3) [facility] GLUCOSE (AUTOMATED)2022-01-08 10:57:56 Test Item Value Reference Range Interpretation Comments POCT GLU (test code = 6880623191) 122 mg/dL 70-110 H Lab Interpretation (test code = Abnormal 40971-3) [facility] GLUCOSE (AUTOMATED)2022-01-08 05:44:22 Test Item Value Reference Range Interpretation Comments POCT GLU (test code = 1435934627) 150 mg/dL 70-110 H Lab Interpretation (test code = Abnormal 75129-3) [facility] GLUCOSE (AUTOMATED)2022-01-07 22:00:04 Test Item Value Reference Range Interpretation Comments POCT GLU (test code = 6323165007) 175 mg/dL 70-110 H Lab Interpretation (test code = Abnormal 00227-9) [facility] GLUCOSE (AUTOMATED)2022-01-07 17:25:35 Test Item Value Reference Range Interpretation Comments POCT GLU (test code = 1026438393) 149 mg/dL 70-110 H Lab Interpretation (test code = Abnormal 74053-3) [facility] [id number] 15:01:23 Test Item Value Reference Range Interpretation Comments Blood Culture-Aerobic No organisms No growth Previo us (test code = 93232-4) isolated prelim inary verified result was Culture [...] Culture-Anaerobic isolated preliminar y (test code = 31802-8) verifi ed result was Culture In Progress on 01/02/2022 at 13 CDTPrevious preliminary verified result was No growth a t 24 hours on 01/03/2022 at 10 CDTPrevious preliminary verified result was No growth a t 48 hours on 01/04/2022 at 10 CDTPrevious preliminary verified result was No growth a t 72 hours on 01/05/2022 at 10 CDT Lab Interpretation Normal (test code = 71329-4) [facility] Culture - Peripheral Vein # 15:01:23 Test Item Value Reference Range Interpretation Comments Blood Culture-Aerobic No organisms No growth Previo us (test code = 21084-8) isolated prelim inary verified result was Culture [...] Culture-Anaerobic isolated preliminar y (test code = 35517-0) verifi ed result was Culture In Progress [...] CDT Lab Interpretation Normal (test code = 37236-9) [facility]-07 13:20:20 Test Item Value Reference Range Interpretation Comments POCT GLU (test code = 7140354505) 153 mg/dL 70-110 H Lab Interpretation (test code = Abnormal 46432-4) [facility] METABOLIC PANEL (NA, K, CL, CO2, GLUCOSE, BUN, CREATININE, CA)2022-01-07 07:43:22 Test Item Value Reference Range Interpretation Comments NA (test code = 141 mmol/L 135-145 4148021489) K (test code = 3.8 mmol/L 3.5-5.0 2426646249) CL (test code = 101 mmol/L 98-108 5639693575) CO2 TOTAL (test code = 33 mmol/L 23-31 H 3468777463) AGAP (test code = 2-16 6994456692) BUN (test code = 13 mg/dL 7-23 0035481167) GLUCOSE (test code = 127 mg/dL 70-110 H 3687797823) CREATININE (test code = 0.89 mg/dL 0.50-1.04 4060635470) CALCIUM (test code = 8.4 mg/dL 8.6-10.6 L 7660120488) eGFR (test code = mL/min/1.73m2 8773737702) JENNIFFER (test code = JENNIFFER) Association of [...] tests). Lab Interpretation Abnormal (test code = 08320-4) [facility] with [id number] 07:29:22 Test Item Value Reference Range Interpretation [...] RDW-SD (test code = 48.2 fL 39.0-49.9 32216-3) RDW-CV (test code = 14.7 % 12.0-15.5 788-0) PLT (test code = See_Comment [Automated 777-3) message] The sy stem which generated this result transmitted reference range : 166 - 358 10*3/ ?L. The reference r josselyn was not used to interpret this result as normal/abnormal . MPV (test code = 9.0 fL 9.5-12.9 L 38419-2) NRBC/100 WBC (test See_Comment [Automat ed code = 6385786608) message] The system which generated this result transmitted reference range : 0.0 - 10.0 /100 WBCs. The refer ence range was not u sed to interpret th is result as normal/abnormal . NRBC x10^3 (test code <0.01 See_Comment [Auto mated = 2056784262) message] The s ystem which generated this result transmitted reference range : 10*3/?L. The reference range was not used to interpret this result as normal/abnormal . GRAN MAT (NEUT) % 81.4 % (test code = 770-8) IMM GRAN % (test code 0.30 % = 5544731761) LYMPH % (test code = 10.3 % 736-9) MONO % (test code = 4.6 % 5905-5) EOS % (test code = 2.8 % 713-8) BASO % (test code = 0.6 % 706-2) GRAN MAT x10^3(ANC) 6.39 10*3/uL 1.88-7.09 (test code = 8788747520) IMM GRAN x10^3 (test <0.03 0.00-0.06 code = 3759152638) LYMPH x10^3 (test code 0.81 10*3/uL 1.32-3.29 L = 731-0) MONO x10^3 (test code 0.36 10*3/uL 0.33-0.92 = 742-7) EOS x10^3 (test code = 0.22 10*3/uL 0.03-0.39 711-2) BASO x10^3 (test code 0.05 10*3/uL 0.01-0.07 = 704-7) Lab Interpretation Abnormal (test code = 13734-8) [facility] 05:54:55 Test Item Value Reference Range Interpretation Comments POCT GLU (test code = 4323043127) 125 mg/dL 70-110 H Lab Interpretation (test code = Abnormal 61086-8) [facility] [id number] 04:01:23 Test Item Value Reference Range Interpretation Comments Blood Culture-Aerobic No organisms No growth Previo us (test code = 23591-9) isolated prelim inary verified result was Culture [...] Culture-Anaerobic isolated preliminar y (test code = 23206-1) verifi ed result was Culture In Progress [...] accordingly. Lab Interpretation Normal (test code = 29306-3) [facility] [id number] 03:01:22 Test Item Value Reference Range Interpretation Comments Blood Culture-Aerobic No organisms No growth Previo us (test code = 32181-9) isolated prelim inary verified result was Culture [...] Culture-Anaerobic isolated preliminar y (test code = 02261-3) verifi ed result was Culture In Progress [...] accordingly. Lab Interpretation Normal (test code = 86033-0) [facility] GLUCOSE (AUTOMATED)2022-01-06 23:38:26 Test Item Value Reference Range Interpretation Comments POCT GLU (test code = 0883160416) 181 mg/dL 70-110 H Lab Interpretation (test code = Abnormal 68157-9) [facility] GLUCOSE (AUTOMATED)2022-01-06 22:44:50 Test Item Value Reference Range Interpretation Comments POCT GLU (test code = 0027330425) 198 mg/dL 70-110 H Lab Interpretation (test code = Abnormal 73878-9) [facility] GLUCOSE (AUTOMATED)2022-01-06 17:41:24 Test Item Value Reference Range Interpretation Comments POCT GLU (test code = 6122345163) 172 mg/dL 70-110 H Lab Interpretation (test code = Abnormal 14475-5) [facility] GLUCOSE (AUTOMATED)2022-01-06 13:48:08 Test Item Value Reference Range Interpretation Comments POCT GLU (test code = 1911810502) 175 mg/dL 70-110 H Lab Interpretation (test code = Abnormal 96427-5) [facility] METABOLIC PANEL (NA, K, CL, CO2, GLUCOSE, BUN, CREATININE, CA)2022-01-06 09:39:37 Test Item Value Reference Range Interpretation Comments NA (test code = 139 mmol/L 135-145 1260992282) K (test code = 3.6 mmol/L 3.5-5.0 2720323663) CL (test code = 104 mmol/L 98-108 1716558256) CO2 TOTAL (test code = 30 mmol/L 23-31 8589837476) AGAP (test code = 2-16 3009649670) BUN (test code = 15 mg/dL 7-23 0124889900) GLUCOSE (test code = 164 mg/dL 70-110 H 5628855690) CREATININE (test code = 0.83 mg/dL 0.50-1.04 2650862206) CALCIUM (test code = 7.9 mg/dL 8.6-10.6 L 4676929126) eGFR (test code = mL/min/1.73m2 8941476738) JENNIFFER (test code = JENNIFFER) Association of [...] tests). Lab Interpretation Abnormal (test code = 50242-6) [facility] 09:39:37 Test Item Value Reference Range Interpretation Comments MAGNESIUM (test code = 0022482698) 2.5 mg/dL 1.7-2.4 H Lab Interpretation (test code = Abnormal 39759-4) [facility] 09:39:37 Test Item Value Reference Range Interpretation Comments PHOSPHORUS (test code = 7053338290) 3.8 mg/dL 2.5-5.0 Lab Interpretation (test code = Normal 62545-7) [facility] WITH [id number] 09:29:28 Test Item Value Reference Range Interpretation [...] RDW-SD (test code = 46.7 fL 39.0-49.9 66361-7) RDW-CV (test code = 14.5 % 12.0-15.5 788-0) PLT (test code = See_Comment [Automated 777-3) message] The sy stem which generated this result transmitted reference range : 166 - 358 10*3/ ?L. The reference r josselyn was not used to interpret this result as normal/abnormal . MPV (test code = 8.9 fL 9.5-12.9 L 66767-4) NRBC/100 WBC (test See_Comment [Automat ed code = 1944517385) message] The system which generated this result transmitted reference range : 0.0 - 10.0 /100 WBCs. The refer ence range was not u sed to interpret th is result as normal/abnormal . NRBC x10^3 (test code <0.01 See_Comment [Auto mated = 4084067296) message] The s ystem which generated this result transmitted reference range : 10*3/?L. The reference range was not used to interpret this result as normal/abnormal . GRAN MAT (NEUT) % 74.7 % (test code = 770-8) IMM GRAN % (test code 0.30 % = 7265617456) LYMPH % (test code = 15.5 % 736-9) MONO % (test code = 5.5 % 5905-5) EOS % (test code = 3.3 % 713-8) BASO % (test code = 0.7 % 706-2) GRAN MAT x10^3(ANC) 4.34 10*3/uL 1.88-7.09 (test code = 1417519699) IMM GRAN x10^3 (test <0.03 0.00-0.06 code = 9630389555) LYMPH x10^3 (test code 0.90 10*3/uL 1.32-3.29 L = 731-0) MONO x10^3 (test code 0.32 10*3/uL 0.33-0.92 L = 742-7) EOS x10^3 (test code = 0.19 10*3/uL 0.03-0.39 711-2) BASO x10^3 (test code 0.04 10*3/uL 0.01-0.07 = 704-7) Lab Interpretation Abnormal (test code = 48108-0) [facility] GLUCOSE (AUTOMATED)2022-01-05 20:46:31 Test Item Value Reference Range Interpretation Comments POCT GLU (test code = 3462589127) 175 mg/dL 70-110 H Lab Interpretation (test code = Abnormal 72827-6) [facility] GLUCOSE (AUTOMATED)2022-01-05 17:13:26 Test Item Value Reference Range Interpretation Comments POCT GLU (test code = 4783335689) 233 mg/dL 70-110 H Lab Interpretation (test code = Abnormal 52186-9) [facility] GLUCOSE (AUTOMATED)2022-01-05 13:24:19 Test Item Value Reference Range Interpretation Comments POCT GLU (test code = 7631605825) 208 mg/dL 70-110 H Lab Interpretation (test code = Abnormal 49715-7) [facility] METABOLIC PANEL (NA, K, CL, CO2, GLUCOSE, BUN, CREATININE, CA)2022-01-05 09:23:42 Test Item Value Reference Range Interpretation Comments NA (test code = 139 mmol/L 135-145 0808481413) K (test code = 3.7 mmol/L 3.5-5.0 7485219250) CL (test code = 102 mmol/L 98-108 1423561328) CO2 TOTAL (test code = 31 mmol/L 23-31 0916144656) AGAP (test code = 2-16 6361238001) BUN (test code = 19 mg/dL 7-23 9653387452) GLUCOSE (test code = 166 mg/dL 70-110 H 8913911664) CREATININE (test code = 0.85 mg/dL 0.50-1.04 0461703847) CALCIUM (test code = 8.1 mg/dL 8.6-10.6 L 2651937224) eGFR (test code = mL/min/1.73m2 1863656667) JENNIFFER (test code = JENNIFFER) Association of [...] tests). Lab Interpretation Abnormal (test code = 65605-8) [facility] 09:23:42 Test Item Value Reference Range Interpretation Comments MAGNESIUM (test code = 1031923061) 2.3 mg/dL 1.7-2.4 Lab Interpretation (test code = Normal 45732-9) [facility] 09:23:42 Test Item Value Reference Range Interpretation Comments PHOSPHORUS (test code = 9524793907) 3.5 mg/dL 2.5-5.0 Lab Interpretation (test code = Normal 89791-1) [facility] WITH [id number] 09:15:04 Test Item Value Reference Range Interpretation [...] RDW-SD (test code = 46.4 fL 39.0-49.9 22817-1) RDW-CV (test code = 14.4 % 12.0-15.5 788-0) PLT (test code = See_Comment [Automated 777-3) message] The sy stem which generated this result transmitted reference range : 166 - 358 10*3/ ?L. The reference r josselyn was not used to interpret this result as normal/abnormal . MPV (test code = 8.9 fL 9.5-12.9 L 68348-9) NRBC/100 WBC (test See_Comment [Automat ed code = 4389303504) message] The system which generated this result transmitted reference range : 0.0 - 10.0 /100 WBCs. The refer ence range was not u sed to interpret th is result as normal/abnormal . NRBC x10^3 (test code <0.01 See_Comment [Auto mated = 4064431321) message] The s ystem which generated this result transmitted reference range : 10*3/?L. The reference range was not used to interpret this result as normal/abnormal . GRAN MAT (NEUT) % 71.1 % (test code = 770-8) IMM GRAN % (test code 0.30 % = 5102138254) LYMPH % (test code = 17.7 % 736-9) MONO % (test code = 7.2 % 5905-5) EOS % (test code = 2.6 % 713-8) BASO % (test code = 1.1 % 706-2) GRAN MAT x10^3(ANC) 4.43 10*3/uL 1.88-7.09 (test code = 5997275118) IMM GRAN x10^3 (test <0.03 0.00-0.06 code = 6817275141) LYMPH x10^3 (test code 1.10 10*3/uL 1.32-3.29 L = 731-0) MONO x10^3 (test code 0.45 10*3/uL 0.33-0.92 = 742-7) EOS x10^3 (test code = 0.16 10*3/uL 0.03-0.39 711-2) BASO x10^3 (test code 0.07 10*3/uL 0.01-0.07 = 704-7) Lab Interpretation Abnormal (test code = 80395-7) [facility] GLUCOSE (AUTOMATED)2022-01-05 05:12:00 Test Item Value Reference Range Interpretation Comments POCT GLU (test code = 5011391192) 178 mg/dL 70-110 H Lab Interpretation (test code = Abnormal 72086-0) [facility] GLUCOSE (AUTOMATED)2022-01-04 22:12:41 Test Item Value Reference Range Interpretation Comments POCT GLU (test code = 3167925805) 154 mg/dL 70-110 H Lab Interpretation (test code = Abnormal 43087-7) [facility] GLUCOSE (AUTOMATED)2022-01-04 17:15:55 Test Item Value Reference Range Interpretation Comments POCT GLU (test code = 7870727301) 204 mg/dL 70-110 H Lab Interpretation (test code = Abnormal 77827-0) [id number]:56:02 Test Item Value Reference Range Interpretation Comments SPUTUM CULTURE 1+ Respiratory iveth: (test code = 622-1) Commensal upper respiratory microorganisms only. Gram stain (test No Epithelial cells code = 664-3) JENNIFFER (test code = Bacterial pathogens JENNIFFER) associated with lower respiratory infections were not identified, which include Pseudomonas aeruginosa and Staphylococcus aureus (MRSA or MSSA). [facility] - Please draw trough at [id number] 11:47:19 Test Item Value Reference Range Interpretation Comments VANCO TROUGH (test code 11.3 ug/mL 10.0-20.0 = 9527162856) JENNIFFER (test code = JENNIFFER) Toxic Range: ?>20 ug/mL 15-20 ug/mL is recommended for severe infection or when Vancomycin TORITO is greater than or equal to 2. Lab Interpretation (test Normal code = 02941-3) [facility] GLUCOSE (AUTOMATED)2022-01-04 11:19:57 Test Item Value Reference Range Interpretation Comments POCT GLU (test code = 4511820852) 189 mg/dL 70-110 H Lab Interpretation (test code = Abnormal 38647-9) [facility] (NA, K, CL, CO2, GLUCOSE, BUN, CREATININE, CA)2022-01-04 11:17:16 Test Item Value Reference Range Interpretation Comments NA (test code = 140 mmol/L 135-145 9634031268) K (test code = 3.3 mmol/L 3.5-5.0 L 9101851066) CL (test code = 99 mmol/L 98-108 0434724814) CO2 TOTAL (test code = 35 mmol/L 23-31 H 5238040390) AGAP (test code = 2-16 6791526864) BUN (test code = 18 mg/dL 7-23 5531178366) GLUCOSE (test code = 172 mg/dL 70-110 H 1460574267) CREATININE (test code = 0.89 mg/dL 0.50-1.04 3701039799) CALCIUM (test code = 8.2 mg/dL 8.6-10.6 L 5482725108) eGFR (test code = mL/min/1.73m2 0773439577) JENNIFFER (test code = JENNIFFER) Association of [...] tests). Lab Interpretation Abnormal (test code = 86370-6) [facility] 11:17:16 Test Item Value Reference Range Interpretation Comments MAGNESIUM (test code = 9420556109) 2.3 mg/dL 1.7-2.4 Lab Interpretation (test code = Normal 17678-0) [facility]2022-[facility]-12 11:17:16 Test Item Value Reference Range Interpretation Comments PHOSPHORUS (test code = 3345141275) 2.7 mg/dL 2.5-5.0 Lab Interpretation (test code = Normal 11107-4) [facility] WITH [id number] 11:03:17 Test Item Value Reference Range Interpretation [...] RDW-SD (test code = 46.0 fL 39.0-49.9 31263-1) RDW-CV (test code = 14.4 % 12.0-15.5 788-0) PLT (test code = See_Comment [Automated 777-3) message] The sy stem which generated this result transmitted reference range : 166 - 358 10*3/ ?L. The reference r josselyn was not used to interpret this result as normal/abnormal . MPV (test code = 9.1 fL 9.5-12.9 L 45140-1) NRBC/100 WBC (test See_Comment [Automat ed code = 1135607168) message] The system which generated this result transmitted reference range : 0.0 - 10.0 /100 WBCs. The refer ence range was not u sed to interpret th is result as normal/abnormal . NRBC x10^3 (test code <0.01 See_Comment [Auto mated = 0618671680) message] The s ystem which generated this result transmitted reference range : 10*3/?L. The reference range was not used to interpret this result as normal/abnormal . GRAN MAT (NEUT) % 78.8 % (test code = 770-8) IMM GRAN % (test code 0.50 % = 1111674365) LYMPH % (test code = 11.8 % 736-9) MONO % (test code = 6.8 % 5905-5) EOS % (test code = 1.4 % 713-8) BASO % (test code = 0.7 % 706-2) GRAN MAT x10^3(ANC) 6.65 10*3/uL 1.88-7.09 (test code = 9743490632) IMM GRAN x10^3 (test 0.04 10*3/uL 0.00-0.06 code = 0134421623) LYMPH x10^3 (test code 1.00 10*3/uL 1.32-3.29 L = 731-0) MONO x10^3 (test code 0.57 10*3/uL 0.33-0.92 = 742-7) EOS x10^3 (test code = 0.12 10*3/uL 0.03-0.39 711-2) BASO x10^3 (test code 0.06 10*3/uL 0.01-0.07 = 704-7) Lab Interpretation Abnormal (test code = 84494-7) [facility] GLUCOSE (AUTOMATED)2022-01-04 06:29:40 Test Item Value Reference Range Interpretation Comments POCT GLU (test code = 0397207950) 211 mg/dL 70-110 H Lab Interpretation (test code = Abnormal 30179-9) [facility] GLUCOSE (AUTOMATED)2022-01-03 21:23:29 Test Item Value Reference Range Interpretation Comments POCT GLU (test code = 255 mg/dL 70-110 H Notifi ed Provider 9466417208) Lab Interpretation (test Abnormal code = 98151-7) [facility] GLUCOSE (AUTOMATED)2022-01-03 16:51:46 Test Item Value Reference Range Interpretation Comments POCT GLU (test code = 332 mg/dL 70-110 H Notifi ed Provider 3897307970) Lab Interpretation (test Abnormal code = 84582-7) [facility]2022-[facility]-03 13:01:05 Test Item Value Reference Range Interpretation Comments POCT GLU (test code = 5183376500) 332 mg/dL 70-110 H Lab Interpretation (test code = Abnormal 91197-5) [facility] Panel 20 + Lactic [id number] 10:21:11 Test Item Value Reference Range Interpretation Comments PH (test code = 2) 7.35-7.45 PCO2 (test code = See_Comment H [Automate d 1841563111) message] The sy stem which generated this result transmitted reference range : 35 - 45 mmHg. The reference range was not used to interpret this result as normal/abnormal . PO2 (test code = See_Comment [Automated 9632212025) message] The sy stem which generated this result transmitted reference range : 80 - 100 mmHg. The reference range was not used to interpret this result as normal/abnormal . HCO3 (test code = See_Comment H [Automate d 2996817971) message] The sy stem which generated this result transmitted reference range : 22 - 26 mEq/L. The reference range was not used to interpret this result as normal/abnormal . BE (test code = See_Comment H [Automated 3452336638) message] The sy stem which generated this result transmitted reference range : -3.0 - 3.0 mEq/ L. The reference r josselyn was not used to interpret this result as normal/abnormal . THB (test code = 10.1 g/dL 12.0-16.0 L 6937306699) %O2HB (test code = 95.5 % 94.0-99.0 0172590289) %COHB ART (test code = 0.3 % 0.0-1.5 6203314185) %METHB ART (test code = 0.1 % 0.4-1.5 L 7557776375) VOL%O2 ART (test code = 13.7 % 15.0-23.0 L 8767508652) NA (test code = 138 mmol/L 135-145 3127530727) K+ (test code = 4.1 mmol/L 3.5-5.0 5070516796) AC CA IONZ (test code = 4.50 mg/dL 4.50-5.30 1275970815) GLUCOSE (test code = 325 mg/dL 70-110 H 0830142209) LACTIC ACID (test code 1.27 mmol/L 0.50-2.20 = 6287091536) Lab Interpretation Abnormal (test code = 48958-1) [facility]2022-01-03 10:18:30 Test Item Value Reference Range Interpretation Comments POCT GLU (test code = 2795277114) 338 mg/dL 70-110 H Lab Interpretation (test code = Abnormal 00528-4) [facility] METABOLIC PANEL (NA, K, CL, CO2, GLUCOSE, BUN, CREATININE, CA)2022-01-03 09:15:37 Test Item Value Reference Range Interpretation Comments NA (test code = 141 mmol/L 135-145 8382774494) K (test code = 4.3 mmol/L 3.5-5.0 7430377572) CL (test code = 103 mmol/L 98-108 3107258393) CO2 TOTAL (test code = 34 mmol/L 23-31 H 1467502982) AGAP (test code = 2-16 2880407530) BUN (test code = 19 mg/dL 7-23 8452406417) GLUCOSE (test code = 295 mg/dL 70-110 H 8339567305) CREATININE (test code = 0.80 mg/dL 0.50-1.04 9364163818) CALCIUM (test code = 7.9 mg/dL 8.6-10.6 L 2576605436) eGFR (test code = mL/min/1.73m2 1694210832) JENNIFFER (test code = JENNIFFER) Association of [...] tests). Lab Interpretation Abnormal (test code = 04118-5) [facility] 09:15:12 Test Item Value Reference Range Interpretation Comments MAGNESIUM (test code = 2527069977) 2.3 mg/dL 1.7-2.4 Lab Interpretation (test code = Normal 25609-6) [facility] WITH [id number] 09:02:53 Test Item Value Reference Range Interpretation Comments WBC (test code = See_Comment [Automated 8990-2) message] The sy stem which generated this result transmitted reference range : 4.30 - 11.10 10*3/?L. The reference range was not used to interpret this result as normal/abnormal . RBC (test code = See_Comment L [Automated 062-8) message] The sy stem which generated this [...] RDW-SD (test code = 46.8 fL 39.0-49.9 93145-6) RDW-CV (test code = 14.3 % 12.0-15.5 788-0) PLT (test code = See_Comment [Automated 777-3) message] The sy stem which generated this result transmitted reference range : 166 - 358 10*3/ ?L. The reference r josselyn was not used to interpret this result as normal/abnormal . MPV (test code = 9.1 fL 9.5-12.9 L 01406-6) NRBC/100 WBC (test See_Comment [Automat ed code = 7246911034) message] The system which generated this result transmitted reference range : 0.0 - 10.0 /100 WBCs. The refer ence range was not u sed to interpret th is result as normal/abnormal . NRBC x10^3 (test code <0.01 See_Comment [Auto mated = 5038347787) message] The s ystem which generated this result transmitted reference range : 10*3/?L. The reference range was not used to interpret this result as normal/abnormal . GRAN MAT (NEUT) % 86.9 % (test code = 770-8) IMM GRAN % (test code 0.50 % = 4371305011) LYMPH % (test code = 6.5 % 736-9) MONO % (test code = 5.2 % 5905-5) EOS % (test code = 0.6 % 713-8) BASO % (test code = 0.3 % 706-2) GRAN MAT x10^3(ANC) 8.30 10*3/uL 1.88-7.09 H (test code = 3150627945) IMM GRAN x10^3 (test 0.05 10*3/uL 0.00-0.06 code = 2613767695) LYMPH x10^3 (test code 0.62 10*3/uL 1.32-3.29 L = 731-0) MONO x10^3 (test code 0.50 10*3/uL 0.33-0.92 = 742-7) EOS x10^3 (test code = 0.06 10*3/uL 0.03-0.39 711-2) BASO x10^3 (test code 0.03 10*3/uL 0.01-0.07 = 704-7) Lab Interpretation Abnormal (test code = 19477-3) [facility] GLUCOSE (AUTOMATED)2022-01-03 04:48:55 Test Item Value Reference Range Interpretation Comments POCT GLU (test code = 4741446465) 258 mg/dL 70-110 H Lab Interpretation (test code = Abnormal 52215-7) [facility] GLUCOSE (AUTOMATED)2022-01-02 22:17:43 Test Item Value Reference Range Interpretation Comments POCT GLU (test code = 274 mg/dL 70-110 H Notifi ed Provider 3537644289) Lab Interpretation (test Abnormal code = 11196-8) [facility] GLUCOSE (AUTOMATED)2022-01-02 16:29:06 Test Item Value Reference Range Interpretation Comments POCT GLU (test code = 321 mg/dL 70-110 H Notifi ed Provider 3453111348) Lab Interpretation (test Abnormal code = 52172-4) [facility]cosylated Hemoglobin (A1C)2022-01-02 15:12:15 Test Item Value Reference Range Interpretation Comments HGB A1C (test code = 10.4 % 4.0-5.7 H 4548-4) JENNIFFER (test code = JENNIFFER) Reference RangesNormal: <5.7%Prediabetes: 5.7 - 6.4%Diabetes: > 6.5% Lab Interpretation (test Abnormal code = 30824-9) [facility] 20 + Lactic [id number] 12:41:39 Test Item Value Reference Range Interpretation Comments PH (test code = 2) 7.35-7.45 L PCO2 (test code = See_Comment H [Automate d 5795615231) message] The sy stem which generated this result transmitted reference range : 35 - 45 mmHg. The reference range was not used to interpret this result as normal/abnormal . PO2 (test code = See_Comment H [Automated 5335956459) message] The sy stem which generated this result transmitted reference range : 80 - 100 mmHg. The reference range was not used to interpret this result as normal/abnormal . HCO3 (test code = See_Comment [Automate d 7433559558) message] The sy stem which generated this result transmitted reference range : 22 - 26 mEq/L. The reference range was not used to interpret this result as normal/abnormal . BE (test code = See_Comment [Automated 8304344156) message] The sy stem which generated this result transmitted reference range : -3.0 - 3.0 mEq/ L. The reference r josselyn was not used to interpret this result as normal/abnormal . THB (test code = 10.0 g/dL 12.0-16.0 L 0004140605) %O2HB (test code = 97.7 % 94.0-99.0 9410637418) %COHB ART (test code = 0.3 % 0.0-1.5 7829708978) %METHB ART (test code = 0.2 % 0.4-1.5 L 8688557778) VOL%O2 ART (test code = 14.0 % 15.0-23.0 L 0688452223) NA (test code = 137 mmol/L 135-145 9000473086) K+ (test code = 5.2 mmol/L 3.5-5.0 H 1745206456) AC CA IONZ (test code = 4.60 mg/dL 4.50-5.30 5946841402) GLUCOSE (test code = 306 mg/dL 70-110 H 5063613254) LACTIC ACID (test code 0.77 mmol/L 0.50-2.20 = 0519705357) Lab Interpretation Abnormal (test code = 03342-5) [facility]22-[facility]-02 12:28:29 Test Item Value Reference Range Interpretation Comments POCT GLU (test code = 362 mg/dL 70-110 H Notifi ed Provider 5712124462) Lab Interpretation (test Abnormal code = 35479-5) [facility] Metabolic Panel (NA, K, CL, CO2, Glucose, BUN, Creatinine, CA)2022-01-02 11:02:42 Test Item Value Reference Range Interpretation Comments NA (test code = 138 mmol/L 135-145 0875195254) K (test code = 5.3 mmol/L 3.5-5.0 H 2990528202) CL (test code = 102 mmol/L 98-108 7282891861) CO2 TOTAL (test code = 29 mmol/L 23-31 6315411964) AGAP (test code = 2-16 7623031657) BUN (test code = 17 mg/dL 7-23 1131828649) GLUCOSE (test code = 343 mg/dL 70-110 H 9249771811) CREATININE (test code = 0.81 mg/dL 0.50-1.04 1859434548) CALCIUM (test code = 8.1 mg/dL 8.6-10.6 L 7835073851) eGFR (test code = mL/min/1.73m2 2806811176) JENNIFFER (test code = JENNIFFER) Association of [...] tests). Lab Interpretation Abnormal (test code = 11158-5) [facility] with Negwglkcumeu8510-70-40 10:52:23 Test Item Value Reference Range Interpretation [...] RDW-SD (test code = 49.3 fL 39.0-49.9 30721-8) RDW-CV (test code = 14.7 % 12.0-15.5 788-0) PLT (test code = See_Comment [Automated 777-3) message] The system which generated this result transmit alden reference range : 166 - 358 10*3/ ?L. The reference range was not u sed to interpret th is result as normal/abnormal . MPV (test code = 9.8 fL 9.5-12.9 29037-3) NRBC/100 WBC (test See_Comment [Automat ed code = 2196028607) message] The system which generated this result transmit alden reference range : 0.0 - 10.0 /100 WBCs. The reference range was not used to interpret this result as normal/abnormal . NRBC x10^3 (test code <0.01 See_Comment [Auto mated = 4010109032) message] The system which generated this result transmit alden reference range : 10*3/?L. The reference range was not used to interpret this result as normal/abnormal . GRAN MAT (NEUT) % 90.3 % (test code = 770-8) IMM GRAN % (test code 1.00 % = 1774665837) LYMPH % (test code = 4.0 % 736-9) MONO % (test code = 4.0 % 5905-5) EOS % (test code = 0.3 % 713-8) BASO % (test code = 0.4 % 706-2) GRAN MAT x10^3(ANC) 13.28 10*3/uL 1.88-7.09 H (test code = 8627186750) IMM GRAN x10^3 (test 0.15 10*3/uL 0.00-0.06 H code = 1137075440) LYMPH x10^3 (test code 0.59 10*3/uL 1.32-3.29 L = 731-0) MONO x10^3 (test code 0.59 10*3/uL 0.33-0.92 = 742-7) EOS x10^3 (test code = 0.04 10*3/uL 0.03-0.39 711-2) BASO x10^3 (test code 0.06 10*3/uL 0.01-0.07 = 704-7) Lab Interpretation Abnormal (test code = 45838-5) [facility]+COOX+NA+K+GLU+CA2+2022-01-02 10:20:11 Test Item Value Reference Range Interpretation Comments PH (test code = 2) 7.35-7.45 LL PCO2 (test code = See_Comment H [Automate d message] 8329162674) The system [employer] generated this result transmit alden reference range : 35 - 45 mmHg. The reference range was not used to interpret this result as normal/abnormal . PO2 (test code = See_Comment H [Automated message] 6454267645) The system [employer] generated this result transmit alden reference range : 80 - 100 mmHg. The reference range was not used to interpret this result as normal/abnormal . HCO3 (test code = See_Comment [Automate d message] 1112013521) The system [employer] generated this result transmit alden reference range : 22 - 26 mEq/L. The reference range was not used to interpret this result as normal/abnormal . BE (test code = See_Comment L [Automated message] 8058439581) The system [employer] generated this result transmit alden reference range : -3.0 - 3.0 mEq/ L. The reference r josselyn was not used to interpret this result as normal/abnormal . THB (test code = 10.9 g/dL 12.0-16.0 L 0528136161) %O2HB (test code = 97.4 % 94.0-99.0 6609409045) %COHB ART (test code = 0.3 % 0.0-1.5 8790583846) %METHB ART (test code = 0.1 % 0.4-1.5 L 4047325061) VOL%O2 ART (test code = 15.1 % 15.0-23.0 8319569161) NA (test code = 136 mmol/L 135-145 2510937712) K+ (test code = 5.5 mmol/L 3.5-5.0 H 8706508869) AC CA IONZ (test code = 4.70 mg/dL 4.50-5.30 8929898595) GLUCOSE (test code = 348 mg/dL 70-110 H 5225413838) Lab Interpretation Abnormal (test code = 41962-7) [facility] [id number] 03:01:55 Test Item Value Reference Interpretation Comments Range TROPONIN I (test 0.001 ng/mL See_Comment [Automated code = 4833095499) message] The system which generated this result [...] biotin. Lab Interpretation Normal (test code = 89352-9) [facility] [id number] 02:58:58 Test Item Value Reference Range Interpretation Comments NT-proBNP (test code 183 pg/mL See_Comment H [Autom ated = 8929716737) message] The system which generated this result transmitted reference range : <=125. The reference range was not used to interpret this result as normal/abnormal . JENNIFFER (test code = JENNIFFER) Biotin has been reported to cause a negative bias, interpret results relative to patient's use of biotin. Lab Interpretation Abnormal (test code = 01398-5) [facility]. METABOLIC PANEL (90650)2022-01-02 02:50:56 Test Item Value Reference Range Interpretation Comments NA (test code = 137 mmol/L 135-145 5526668726) K (test code = 4.6 mmol/L 3.5-5.0 0685098903) CL (test code = 103 mmol/L 98-108 3400790619) CO2 TOTAL (test code = 26 mmol/L 23-31 4700315247) AGAP (test code = 2-16 9126478181) BUN (test code = 20 mg/dL 7-23 0423245516) GLUCOSE (test code = 310 mg/dL 70-110 H 8806044197) CREATININE (test code = 1.14 mg/dL 0.50-1.04 H 2526072300) TOTAL BILI (test code = 0.3 mg/dL 0.1-1.8 0709388427) CALCIUM (test code = 8.1 mg/dL 8.6-10.6 L 5507733924) T PROTEIN (test code = 6.6 g/dL 6.3-8.2 7096934849) ALBUMIN (test code = 3.8 g/dL 3.5-5.0 5329457420) ALK PHOS (test code = 143 U/L 34-122 H 0869435823) ALTv (test code = 46 U/L 5-35 H 1742-6) AST(SGOT) (test code = 81 U/L 13-40 H 1102493282) eGFR (test code = mL/min/1.73m2 7413113693) JENNIFFER (test code = JENNIFFER) Association of [...] tests). Lab Interpretation Abnormal (test code = 05414-0) [facility] WITH [id number] 02:39:55 Test Item Value Reference Range Interpretation Comments WBC (test code = See_Comment H [Automated 5490-2) message] The system which generated this result transmit alden reference range : 4.30 - 11.10 10*3/?L. The reference range was not used to interpret this result as normal/abnormal . RBC (test code = See_Comment L [Automated 199-8) message] The system which generated this result [...] RDW-SD (test code = 49.2 fL 39.0-49.9 33856-8) RDW-CV (test code = 14.8 % 12.0-15.5 788-0) PLT (test code = See_Comment [Automated 777-3) message] The system which generated this result transmit alden reference range : 166 - 358 10*3/ ?L. The reference range was not u sed to interpret th is result as normal/abnormal . MPV (test code = 10.0 fL 9.5-12.9 09555-7) NRBC/100 WBC (test See_Comment [Automat ed code = 1160088246) message] The system which generated this result transmit alden reference range : 0.0 - 10.0 /100 WBCs. The reference range was not used to interpret this result as normal/abnormal . NRBC x10^3 (test code <0.01 See_Comment [Auto mated = 3478572509) message] The system which generated this result transmit alden reference range : 10*3/?L. The reference range was not used to interpret this result as normal/abnormal . GRAN MAT (NEUT) % 85.4 % (test code = 770-8) IMM GRAN % (test code 0.60 % = 3710446926) LYMPH % (test code = 6.4 % 736-9) MONO % (test code = 5.5 % 5905-5) EOS % (test code = 1.6 % 713-8) BASO % (test code = 0.5 % 706-2) GRAN MAT x10^3(ANC) 10.20 10*3/uL 1.88-7.09 H (test code = 8071372836) IMM GRAN x10^3 (test 0.07 10*3/uL 0.00-0.06 H code = 3492694142) LYMPH x10^3 (test code 0.76 10*3/uL 1.32-3.29 L = 731-0) MONO x10^3 (test code 0.66 10*3/uL 0.33-0.92 = 742-7) EOS x10^3 (test code = 0.19 10*3/uL 0.03-0.39 711-2) BASO x10^3 (test code 0.06 10*3/uL 0.01-0.07 = 704-7) Lab Interpretation Abnormal (test code = 37552-3) [facility] [id number] 04:57:10 Test Item Value Reference Interpretation Comments Range TROPONIN I (test 0.001 ng/mL See_Comment [Automated code = 8278751797) message] The system which generated this result [...] biotin. Lab Interpretation Normal (test code = 96418-6) [facility] [id number]-[id number] 04:53:49 Test Item Value Reference Range Interpretation Comments NT-proBNP (test code 79 pg/mL See_Comment [Autom ated = 0043514356) message] The system which generated this result transmitted reference range : <=125. The reference range was not used to interpret this result as normal/abnormal . JENNIFFER (test code = JENNIFFER) Biotin has been reported to cause a negative bias, interpret results relative to patient's use of biotin. Lab Interpretation Normal (test code = 31667-3) [facility]. METABOLIC PANEL (43335)2021-12-09 04:46:26 Test Item Value Reference Range Interpretation Comments NA (test code = 138 mmol/L 135-145 9136007087) K (test code = 4.4 mmol/L 3.5-5.0 4485243336) CL (test code = 95 mmol/L 98-108 L 6602337180) CO2 TOTAL (test code = 35 mmol/L 23-31 H 1280932341) AGAP (test code = 2-16 0778619791) BUN (test code = 16 mg/dL 7-23 8994644555) GLUCOSE (test code = 276 mg/dL 70-110 H 0083630847) CREATININE (test code = 0.89 mg/dL 0.50-1.04 0766859680) TOTAL BILI (test code = 0.5 mg/dL 0.1-1.9 3772524386) CALCIUM (test code = 9.1 mg/dL 8.6-10.6 6212068668) T PROTEIN (test code = 7.0 g/dL 6.3-8.2 8124903745) ALBUMIN (test code = 4.2 g/dL 3.5-5.0 4795035757) ALK PHOS (test code = 141 U/L 34-122 H 7016248843) ALTv (test code = 65 U/L 5-35 H 1742-6) AST(SGOT) (test code = 81 U/L 13-40 H 2680105599) eGFR (test code = mL/min/1.73m2 3858910355) JENNIFFER (test code = JENNIFFER) Association of [...] tests). Lab Interpretation Abnormal (test code = 11520-3) [facility]20[facility] 04:46:26 Test Item Value Reference Range Interpretation Comments LIPASE (test code = 8688995121) 82 U/L 0-220 Lab Interpretation (test code = Normal 74155-2) [facility] WITH [id number] 04:27:44 Test Item Value Reference Range Interpretation [...] RDW-SD (test code = 46.9 fL 39.0-49.9 42581-2) RDW-CV (test code = 14.2 % 12.0-15.5 788-0) PLT (test code = See_Comment [Automated 777-3) message] The sy stem which generated this result transmitted reference range : 166 - 358 10*3/ ?L. The reference r josselyn was not used to interpret this result as normal/abnormal . MPV (test code = 9.0 fL 9.5-12.9 L 54202-6) NRBC/100 WBC (test See_Comment [Automat ed code = 4328948350) message] The system which generated this result transmitted reference range : 0.0 - 10.0 /100 WBCs. The refer ence range was not u sed to interpret th is result as normal/abnormal . NRBC x10^3 (test code <0.01 See_Comment [Auto mated = 6012199162) message] The s ystem which generated this result transmitted reference range : 10*3/?L. The reference range was not used to interpret this result as normal/abnormal . GRAN MAT (NEUT) % 79.4 % (test code = 770-8) IMM GRAN % (test code 0.60 % = 7792364059) LYMPH % (test code = 10.9 % 736-9) MONO % (test code = 5.7 % 5905-5) EOS % (test code = 2.7 % 713-8) BASO % (test code = 0.7 % 706-2) GRAN MAT x10^3(ANC) 7.19 10*3/uL 1.88-7.09 H (test code = 6826538033) IMM GRAN x10^3 (test 0.05 10*3/uL 0.00-0.06 code = [id number]) LYMPH x10^3 (test code 0.99 10*3/uL 1.32-3.29 L = 731-0) MONO x10^3 (test code 0.52 10*3/uL 0.33-0.92 = 742-7) EOS x10^3 (test code = 0.24 10*3/uL 0.03-0.39 711-2) BASO x10^3 (test code 0.06 10*3/uL 0.01-0.07 = 704-7) Lab Interpretation Abnormal (test code = 43624-2) [facility] GLUCOSE (AUTOMATED)2021-09-23 17:25:54 Test Item Value Reference Range Interpretation Comments POCT GLU (test code = [id number]) 234 mg/dL 70-110 H Lab Interpretation (test code = Abnormal 72526-9) [facility] 13:58:43 Test Item Value Reference Range Interpretation Comments POCT GLU (test code = 4883962910) 202 mg/dL 70-110 H Lab Interpretation (test code = Abnormal 61224-1) [facility] (NA, K, CL, CO2, GLUCOSE, BUN, CREATININE, CA)2021-09-23 11:51:27 Test Item Value Reference Range Interpretation Comments NA (test code = 139 mmol/L 135-145 1022985039) K (test code = 3.9 mmol/L 3.5-5.0 7059956347) CL (test code = 93 mmol/L 98-108 L 4810770431) CO2 TOTAL (test code = 40 mmol/L 23-31 H 1591814031) AGAP (test code = 2-16 9128063403) BUN (test code = 26 mg/dL 7-23 H 9662616496) GLUCOSE (test code = 223 mg/dL 70-110 H 1568161776) CREATININE (test code = 0.96 mg/dL 0.50-1.04 3537606156) CALCIUM (test code = 9.2 mg/dL 8.6-10.6 8126622354) eGFR (test code = mL/min/1.73m2 2431773313) JENNIFFER (test code = JENNIFFER) Association of [...] tests). Lab Interpretation Abnormal (test code = 12657-7) [facility] WITHOUT [id number] 10:53:54 Test Item Value Reference Range Interpretation Comments WBC (test code = 6690-2) See_Comment H [A utomated message] The system [employer] generated this result transmit alden reference range : 4.30 - 11.10 10*3/?L. The reference range was not used to interpret this result as normal/abnormal . RBC (test code = 789-8) See_Comment L [Au tomated message] The system [employer] generated this result transmit alden reference range [...] 777-3) See_Comment [Au tomated message] The system [employer] generated this result transmit alden reference range : 166 - 358 10*3/?L. The reference range was not used to interpret this result as normal/abnormal . MPV (test code = 9.2 fL 9.5-12.9 L 47663-6) RDW-CV (test code = 13.5 % 12.0-15.5 788-0) RDW-SD (test code = 44.3 fL 39.0-49.9 57491-5) NRBC x10^3 (test code = <0.01 See_Comment [Au tomated message] 4008816680) The system [employer] generated this result transmit alden reference range : 10*3/?L. The reference range was not used to interpret this result as normal/abnormal . NRBC/100 WBC (test code See_Comment [Au tomated message] = 2900266943) The system [employer] generated this result transmit alden reference range : 0.0 - 10.0 /100 WBC s. The reference r josselyn was not used to interpret this result as normal/abnormal . IPF % (test code = 8018667883) Lab Interpretation (test Abnormal code = 89748-9) [facility] GLUCOSE (AUTOMATED)2021-09-23 10:17:17 Test Item Value Reference Range Interpretation Comments POCT GLU (test code = 8926141143) 217 mg/dL 70-110 H Lab Interpretation (test code = Abnormal 85188-8) [facility] GLUCOSE (AUTOMATED)2021-09-23 05:44:27 Test Item Value Reference Range Interpretation Comments POCT GLU (test code = 1766509786) 338 mg/dL 70-110 H Lab Interpretation (test code = Abnormal 87914-3) [facility] GLUCOSE (AUTOMATED)2021-09-23 02:18:55 Test Item Value Reference Range Interpretation Comments POCT GLU (test code = 3239651829) 365 mg/dL 70-110 H Lab Interpretation (test code = Abnormal 92785-4) [facility]2021-09-23 00:11:44 Test Item Value Reference Range Interpretation Comments LVOT stroke volume (test 68.50 cm3 code = 2058039470) EF(Teich) (test code = 68.30 % 2501085006) LVIDD (test code = 4.00 cm 2213349929) LVIDS (test code = 2.49 cm 3999297502) IVS (test code = 1.07 cm 1809714337) LVPWD (test code = 1.08 cm 2602790847) LVOT diameter (test code 1.92 cm = 5580108418) FS (test code = 38 % 2385628787) MV Peak E Marva (test code 83.4 cm/s = 3617946146) MV Peak A Marva (test code 136.1 cm/s = 2071354195) E/A ratio (test code = ratio 6578014493) E wave decelartion time 0.16 s (test code = 2884154846) MV E/e' septal (test 7.1 cm/s code = 6462055654) LA Volume Index (BP) 21.8 mL/m2 (test code = 1248807366) LA volume (BP) (test 43.7 mL code = 7285904977) LVOT peak marva (test code 137.5 cm/s = 9324977697) LVOT mn grad (test code mmHg = 1551152984) LA size (test code = 3.9 cm 0709582286) LAV(MOD-sp2) (test code 43.50 mL = 3513477794) LAV(MOD-sp4) (test code 42.50 mL = 8173679439) Tapse (test code = 1.88 cm 9508427254) AV LVOT peak gradient mmHg (test code = 5381567192) LVOT peak VTI (test code 23.5 cm = 0073016329) LV V1 mean (test code = 92.90 cm/s 3154570182) MV Prop V (test code = 46.60 cm/s 8589725957) Ao root annulus (test 3.1 cm code = 3858687749) Ao root diam (test code 3.10 cm = 5208770702) Aortic root (test code = 3.1 cm 5251868526) PW (test code = 1.08 cm 0.6-1.3 0907828238) EF - 2D (test code = 68.30 % 22164041) Interventricular Septum 1.07 cm Diastolic Thickness by 2D (test code = 1997801) Radiology Study observation (narrative) (test code = 42349-6) JENNIFFER (test code = JENNIFFER) ?Left?Ventricle: Normal [...] (104.3 kg) 2.12 sq meters 118/66 96 [facility] GLUCOSE (AUTOMATED)2021-09-22 22:23:31 Test Item Value Reference Range Interpretation Comments POCT GLU (test code = 3924915027) 389 mg/dL 70-110 H Lab Interpretation (test code = Abnormal 84195-3) [facility] [id number] 21:48:25 Test Item Value Reference Range Interpretation Comments SPUTUM CULTURE (test Specimen cellular code = 622-1) elements do not represent lower respiratory tract. Specimen rejected for routine bacterial culture. Suggest reorder and recollection. [facility] GLUCOSE (AUTOMATED)2021-09-22 20:03:02 Test Item Value Reference Range Interpretation Comments POCT GLU (test code = 5367305127) 365 mg/dL 70-110 H Lab Interpretation (test code = Abnormal 19757-8) [facility] GLUCOSE (AUTOMATED)2021-09-22 18:09:08 Test Item Value Reference Range Interpretation Comments POCT GLU (test code = 6893788431) 361 mg/dL 70-110 H Lab Interpretation (test code = Abnormal 94705-7) [facility] GLUCOSE (AUTOMATED)2021-09-22 13:24:25 Test Item Value Reference Range Interpretation Comments POCT GLU (test code = 8161973120) 394 mg/dL 70-110 H Lab Interpretation (test code = Abnormal 46518-3) [facility] PAN[facility] + LACTIC [id number] 13:21:48 Test Item Value Reference Range Interpretation Comments PH (test code = 2) 7.35-7.45 PCO2 (test code = See_Comment H [Automate d 0407754699) message] The sy stem which generated this result transmitted reference range : 35 - 45 mmHg. The reference range was not used to interpret this result as normal/abnormal . PO2 (test code = See_Comment L [Automated 4176477797) message] The sy stem which generated this result transmitted reference range : 80 - 100 mmHg. The reference range was not used to interpret this result as normal/abnormal . HCO3 (test code = See_Comment H [Automate d 0265591077) message] The sy stem which generated this result transmitted reference range : 22 - 26 mEq/L. The reference range was not used to interpret this result as normal/abnormal . BE (test code = See_Comment H [Automated 3910669734) message] The sy stem which generated this result transmitted reference range : -3.0 - 3.0 mEq/ L. The reference r josselyn was not used to interpret this result as normal/abnormal . THB (test code = 11.0 g/dL 12.0-16.0 L 1659323891) %O2HB (test code = 92.4 % 94.0-99.0 L 6006962461) %COHB ART (test code = 0.3 % 0.0-1.5 5870441073) %METHB ART (test code = 0.3 % 0.4-1.5 L 1173381890) VOL%O2 ART (test code = 14.3 % 15.0-23.0 L 8524598967) NA (test code = 138 mmol/L 135-145 5160972753) K+ (test code = 4.7 mmol/L 3.5-5.0 4653543275) AC CA IONZ (test code = 4.70 mg/dL 4.50-5.30 7058349823) GLUCOSE (test code = 401 mg/dL 70-110 H 9230192771) LACTIC ACID (test code 1.76 mmol/L 0.50-2.20 = 3404775815) Lab Interpretation Abnormal (test code = 63165-1) [facility] Metabolic Panel (NA, K, CL, CO2, Glucose, BUN, Creatinine, CA)2021-09-22 13:08:40 Test Item Value Reference Range Interpretation Comments NA (test code = 139 mmol/L 135-145 9112640677) K (test code = 4.9 mmol/L 3.5-5.0 2295805153) CL (test code = 93 mmol/L 98-108 L 4007929567) CO2 TOTAL (test code = 38 mmol/L 23-31 H 3388034205) AGAP (test code = 2-16 6695921556) BUN (test code = 19 mg/dL 7-23 2142579893) GLUCOSE (test code = 393 mg/dL 70-110 H 0618878183) CREATININE (test code = 0.89 mg/dL 0.50-1.04 9150940489) CALCIUM (test code = 8.9 mg/dL 8.6-10.6 9737268977) eGFR (test code = mL/min/1.73m2 1319150428) JENNIFFER (test code = JENNIFFER) Association of [...] tests). Lab Interpretation Abnormal (test code = 42946-8) [facility] [id number] 13:00:02 Test Item Value Reference Range Interpretation Comments MAGNESIUM (test code = 4260030057) 2.1 mg/dL 1.7-2.4 Lab Interpretation (test code = Normal 20234-7) [facility]ball[facility]osphorus [id number] 13:00:02 Test Item Value Reference Range Interpretation Comments PHOSPHORUS (test code = 4105845154) 3.3 mg/dL 2.5-5.0 Lab Interpretation (test code = Normal 71902-4) [facility] Function Panel (ALB, T.PRO, BILI T, BU/BC, ALT, AST, ALK, PHOS)2021-09-22 13:00:02 Test Item Value Reference Range Interpretation Comments TOTAL BILI (test code = 4464690327) 0.7 mg/dL 0.1-1.1 BILI UNCON (test code = 8103026011) 0.1 mg/dL 0.1-1.1 BILI CONJ (test code = 9016208876) 0.0 mg/dL 0.0-0.3 T PROTEIN (test code = 9538433311) 8.1 g/dL 6.3-8.2 ALBUMIN (test code = 7516040499) 4.2 g/dL 3.5-5.0 ALK PHOS (test code = 5973279851) 145 U/L 34-122 H ALTv (test code = 1742-6) 34 U/L 5-35 AST(SGOT) (test code = 1672590992) 46 U/L 13-40 H Lab Interpretation (test code = Abnormal 54974-3) [facility]ball[facility]thrombin Time / [id number] 12:42:02 Test Item Value Reference Range Interpretation [...] tions. Lab Interpretation (test Normal code = 95720-1) [facility] with [id number] 12:35:41 Test Item Value Reference Range Interpretation [...] RDW-SD (test code = 45.0 fL 39.0-49.9 08958-6) RDW-CV (test code = 13.7 % 12.0-15.5 788-0) PLT (test code = See_Comment [Automated 777-3) message] The sy stem which generated this result transmitted reference range : 166 - 358 10*3/ ?L. The reference r josselyn was not used to interpret this result as normal/abnormal . MPV (test code = 9.0 fL 9.5-12.9 L 98546-3) NRBC/100 WBC (test See_Comment [Automat ed code = 0751060111) message] The system which generated this result transmitted reference range : 0.0 - 10.0 /100 WBCs. The refer ence range was not u sed to interpret th is result as normal/abnormal . NRBC x10^3 (test code <0.01 See_Comment [Auto mated = 2100590544) message] The s ystem which generated this result transmitted reference range : 10*3/?L. The reference range was not used to interpret this result as normal/abnormal . GRAN MAT (NEUT) % 93.7 % (test code = 770-8) IMM GRAN % (test code 0.90 % = 6013644783) LYMPH % (test code = 3.2 % 736-9) MONO % (test code = 1.1 % 5905-5) EOS % (test code = 0.5 % 713-8) BASO % (test code = 0.6 % 706-2) GRAN MAT x10^3(ANC) 9.27 10*3/uL 1.88-7.09 H (test code = 0431403997) IMM GRAN x10^3 (test 0.09 10*3/uL 0.00-0.06 H code = 9441488804) LYMPH x10^3 (test code 0.32 10*3/uL 1.32-3.29 L = 731-0) MONO x10^3 (test code 0.11 10*3/uL 0.33-0.92 L = 742-7) EOS x10^3 (test code = 0.05 10*3/uL 0.03-0.39 711-2) BASO x10^3 (test code 0.06 10*3/uL 0.01-0.07 = 704-7) Lab Interpretation Abnormal (test code = 68499-0) [facility]ballGLYCOSYLATED HEMOGLOBIN (A1C)2021-09-22 12:16:03 Test Item Value Reference Range Interpretation Comments HGB A1C (test code = 6.4 % 4.0-5.7 H 4548-4) JENNIFFER (test code = JENNIFFER) Reference RangesNormal: <5.7%Prediabetes: 5.7 - 6.4%Diabetes: > 6.5% Lab Interpretation (test Abnormal code = 76609-6) [facility]ballTROPONIN [id number] 07:25:36 Test Item Value Reference Interpretation Comments Range TROPONIN I (test <0.012 See_Comment [Automated code = 9829936378) message] The system which generated this result [...] biotin. Lab Interpretation Normal (test code = 55299-5) [facility]ballN-TERMINAL [id number] 07:21:56 Test Item Value Reference Range Interpretation Comments NT-proBNP (test code 127 pg/mL See_Comment H [Autom ated = 5581820679) message] The system which generated this result transmitted reference range : <=125. The reference range was not used to interpret this result as normal/abnormal . JENNIFFER (test code = JENNIFFER) Biotin has been reported to cause a negative bias, interpret results relative to patient's use of biotin. Lab Interpretation Abnormal (test code = 28541-2) [facility]COMP. METABOLIC PANEL (58767)2021-09-22 07:01:13 Test Item Value Reference Range Interpretation Comments NA (test code = 137 mmol/L 135-145 0480512978) K (test code = 4.9 mmol/L 3.5-5.0 3466335082) CL (test code = 96 mmol/L 98-108 L 1332130611) CO2 TOTAL (test code = 36 mmol/L 23-31 H 6543401309) AGAP (test code = 2-16 5515961087) BUN (test code = 18 mg/dL 7-23 9331120387) GLUCOSE (test code = 298 mg/dL 70-110 H 0542318056) CREATININE (test code = 0.73 mg/dL 0.50-1.04 2037760334) TOTAL BILI (test code = 0.6 mg/dL 0.1-1.6 1519710587) CALCIUM (test code = 8.5 mg/dL 8.6-10.6 L 7628052027) T PROTEIN (test code = 7.1 g/dL 6.3-8.2 0332417994) ALBUMIN (test code = 4.0 g/dL 3.5-5.0 8123801114) ALK PHOS (test code = 132 U/L 34-122 H 7524572137) ALTv (test code = 31 U/L 535 1742-6) AST(SGOT) (test code = 51 U/L 13-40 H 6477331604) eGFR (test code = mL/min/1.73m2 1609389797) JENNIFFER (test code = JENNIFFER) Association of [...] tests). Lab Interpretation Abnormal (test code = 37875-6) [facility]ballACTIVATED PARTIAL THRMPLAS [id number] 06:54:12 Test Item Value Reference Range Interpretation Comments APTT Patient (test See_Comment [Automat ed code = 3173-2) message] The system which generated this result transmitted reference range : 23 - 38 Seconds . The reference range was not used to interpr et this result as normal/abnormal . JENNIFFER (test code = JENNIFFER) The [email or web address] patient population mean normal value for aPTT is 30 seconds. Lab Interpretation Normal (test code = 06155-3) [facility] TomballPROTHROMBIN TIME / [id number] 06:52:12 Test Item Value Reference Range Interpretation [...] tions. Lab Interpretation (test Normal code = 81137-4) [facility] WITH [id number] 06:44:31 Test Item Value Reference Range Interpretation [...] RDW-SD (test code = 47.3 fL 39.0-49.9 09889-4) RDW-CV (test code = 13.8 % 12.0-15.5 788-0) PLT (test code = See_Comment [Automated 777-3) message] The sy stem which generated this result transmitted reference range : 166 - 358 10*3/ ?L. The reference r josselyn was not used to interpret this result as normal/abnormal . MPV (test code = 8.8 fL 9.5-12.9 L 52505-2) NRBC/100 WBC (test See_Comment [Automat ed code = 0718845422) message] The system which generated this result transmitted reference range : 0.0 - 10.0 /100 WBCs. The refer ence range was not u sed to interpret th is result as normal/abnormal . NRBC x10^3 (test code <0.01 See_Comment [Auto mated = 6880308189) message] The s ystem which generated this result transmitted reference range : 10*3/?L. The reference range was not used to interpret this result as normal/abnormal . GRAN MAT (NEUT) % 82.4 % (test code = 770-8) IMM GRAN % (test code 0.80 % = 1478484968) LYMPH % (test code = 8.0 % 736-9) MONO % (test code = 5.1 % 5905-5) EOS % (test code = 2.9 % 713-8) BASO % (test code = 0.8 % 706-2) GRAN MAT x10^3(ANC) 6.26 10*3/uL 1.88-7.09 (test code = 9682694742) IMM GRAN x10^3 (test 0.06 10*3/uL 0.00-0.06 code = 3546777116) LYMPH x10^3 (test code 0.61 10*3/uL 1.32-3.29 L = 731-0) MONO x10^3 (test code 0.39 10*3/uL 0.33-0.92 = 742-7) EOS x10^3 (test code = 0.22 10*3/uL 0.03-0.39 711-2) BASO x10^3 (test code 0.06 10*3/uL 0.01-0.07 = 704-7) Lab Interpretation Abnormal (test code = 14691-9) [facility]
[2022-11-23] MEDS ORDERED: METHYLPREDNISOLONE 125 MG INJ ONE (18:44)
[2022-11-23] MEDS ORDERED: LEVALBUTEROL 1.25 MG/3 ML NEB ONE (18:45)
[2022-11-23] MEDS ORDERED: MAGNESIUM SULFATE 1 gm IVPB 0 GM/0 ML BAG IV ONE (18:45)
[2022-11-23 19:05] LABS: Absolute Lymphocytes (CBC) 0.2 K/uL (0.7-4.9); Hematocrit 36.4 % (36.0-45.0); Lymphocytes % 1.6 % (15.3-44.8); MCV 88.4 fL (80-100); MPV 7.5 fL (7.6-11.3); RBC Red Blood Cell Count 4.12 M/uL (3.86-4.86)
--- NOTE | 2022-11-23 19:18 | RAD REPORT ---
EXAM DESCRIPTION: RADChest Single View11/23/2022 7:02 pm CLINICAL HISTORY: shortness of breath COMPARISON: Chest Single View dated 11/22/2022; Chest Single View dated 11/10/2022; Chest Single View dated 10/21/2022; Chest Single View dated 10/19/2022 TECHNIQUE: Portable AP view of the chest. FINDINGS: Bibasilar patchy opacities, stable in appearance. Lobulated density projecting over the pe ripheral left mid lung is stable. No pneumothorax or effusion. The cardiomediastinal contours are unr emarkable. IMPRESSION: Stable patchy bibasilar airspace opacities.
[2022-11-23 19:24] LABS: Potassium 4.4 mEq/L (3.5-5.1); Troponin High Sensitivity 7.1 pg/mL (<58.9)
--- NOTE | 2022-11-23 19:57 | ER ---
Nurse's Notes [facility] Name: Janie Erickson Age: 62 yrs Sex: Female : 1960 Arrival Date: 11/23/2022 Time: 17:17 Bed 19 Private MD: Diagnosis: COPD/ Chronic obstructive pulmonary disease with (acute) exacerbation Presentation: 11/23 17:52 Chief complaint: Patient states: "I've been SOB, having bilateral lower back pain, and mb9 nauseous for 3 days. I get out of breath faster than usual". Coronavirus screen: Vaccine status: Patient reports being unvaccinated. Ebola Screen: No symptoms or risks identified at this time. Initial Sepsis Screen: Does the patient meet any 2 criteria? No. Patient's initial sepsis screen is negative. Does the patient have a suspected source of infection? No. Patient's initial sepsis screen is negative. Risk Assessment: Do you want to hurt yourself or someone else? Patient reports no desire to harm self or others. Onset of symptoms was November 23, 2022. 17:52 Method Of Arrival: Wheelchair mb9 17:52 Acuity: PAULINA 3 mb9 Triage Assessment: 17:55 General: Appears uncomfortable, Behavior is appropriate for age. Pain: Complains of mb9 pain in back. Neuro: Level of Consciousness is awake, alert, obeys commands. Cardiovascular: Patient's skin is warm and dry. Respiratory: Airway is patent Respiratory effort is even, unlabored, Respiratory pattern is regular, symmetrical. GI: Abdomen is round non-distended, Bowel sounds present X 4 quads. Abd is soft and non tender X 4 quads. Reports nausea, Patient currently denies diarrhea. : Denies burning with urination. Derm: Skin is pink, warm \\T\\ dry. Musculoskeletal: Range of motion: limited in all extremities. Historical: - Allergies: 17:54 codeine sulfate; mb9 17:54 Robaxin; mb9 17:54 Sulfa (Sulfonamide Antibiotics); mb9 17:54 Ultram; mb9 - PMHx: 17:54 Chronic obstructive lung disease; Congestive heart failure; diabetes mellitus; mb9 - PSHx: 17:54 trach; mb9 - Immunization history:: Adult Immunizations up to date. - Social history:: Smoking status: Patient reports the use of cigarette tobacco products, smokes one-half pack cigarettes per day. Screenin:02 [facility] ED Fall Risk Assessment (Adult) History of falling in the last 3 months, kc6 including since admission No falls in past 3 months (0 pts) Confusion or Disorientation No (0 pts) Intoxicated or Sedated No (0 pts) Impaired Gait No (0 pts) Mobility Assist Device Used No (0 pt) Altered Elimination No (0 pt) Score/Fall Risk Level 0 - 2 = Low Risk Oriented to surroundings, Maintained a safe environment, Educated pt \\T\\ family on fall prevention, incl call for assistance when getting out of bed, Assessed \\T\\ reinforced patient's understanding of fall precautions, Hourly rounding (assess needs \\T\\ fall precautionary measures) done. Abuse screen: Denies threats or abuse. Denies injuries from another. Nutritional screening: No deficits noted. Tuberculosis screening: No symptoms or risk factors identified. Assessment: 17:56 Reassessment: see triage assessment. mb9 19:02 General: Appears in no apparent distress. comfortable, obese, well groomed, Behavior is kc6 calm, cooperative, appropriate for age. Pain: Complains of pain in abdomen and back Pain does not radiate. Neuro: Moore Agitation-Sedation Scale (RASS): 0 - Alert and Calm Level of Consciousness is awake, alert, obeys commands, Oriented to person, place, time, situation, Appropriate for age. Cardiovascular: Capillary refill < 3 seconds. Respiratory: Reports shortness of breath at rest on exertion Airway is patent Trachea midline Respiratory effort is even, unlabored, Respiratory pattern is symmetrical, tachypnea. GI: No signs and/or symptoms were reported involving the gastrointestinal system. : No signs and/or symptoms were reported regarding the genitourinary system. EENT: No signs and/or symptoms were reported regarding the EENT system. Derm: No signs and/or symptoms reported regarding the dermatologic system. Skin is intact, Skin is pink, warm \\T\\ dry. Musculoskeletal: No signs and/or symptoms reported regarding the musculoskeletal system. Circulation, motion, and sensation intact. Capillary refill < 3 seconds, Range of motion: intact in all extremities. 19:30 General: Behavior is calm, cooperative. Pain: Complains of pain in back Pain does not ha1 radiate. Pain currently is 7 out of 10 on a pain scale. Neuro: Level of Consciousness is awake, alert, obeys commands, Oriented to person, place, time, situation. Cardiovascular: Capillary refill < 3 seconds Patient's skin is warm and dry. Respiratory: Airway is patent Trachea midline Respiratory effort is even, unlabored, Respiratory pattern is regular, symmetrical, tracheostomy tube. GI: Abdomen is non-distended, obese, Bowel sounds present X 4 quads. : No signs and/or symptoms were reported regarding the genitourinary system. Derm: Skin is pink, warm \\T\\ dry. Musculoskeletal: Circulation, motion, and sensation intact. Range of motion: intact in all extremities. 20:30 Reassessment: Patient and/or family updated on plan of care and expected duration. Pain ha1 level reassessed. Patient is alert, oriented x 3, equal unlabored respirations, skin warm/dry/pink. requesting pain medication. notified care provider. 21:30 Reassessment: Patient and/or family updated on plan of care and expected duration. Pain ha1 level reassessed. Patient is alert, oriented x 3, equal unlabored respirations, skin warm/dry/pink. 21:42 Reassessment: attempted to give report. nurse unavailable. ha1 22:32 Reassessment: Patient and/or family updated on plan of care and expected duration. Pain ha1 level reassessed. Patient is alert, oriented x 3, equal unlabored respirations, skin warm/dry/pink. Vital Signs: 17:52 BP 124 / 82; Pulse 98; Resp 20; Temp 98.7; Pulse Ox 97% on 8 lpm tracheostomy; Weight mb9 99.79 kg; Height 5 ft. 1 in. ; Pain 8/10; 19:03 BP 187 / 97; Pulse 99; Resp 17 S; Pulse Ox 98% ; kc6 20:00 BP 158 / 94; Pulse 97; Resp 18 S; Pulse Ox 98% on 6 lpm NC; ha1 21:00 BP 136 / 103; Pulse 97; Resp 19 S; Pulse Ox 96% on 6 lpm NC; ha1 22:00 BP 138 / 100; Pulse 98; Resp 20 S; Pulse Ox 96% on 6 lpm NC; ha1 17:52 Body Mass Index 41.57 (99.79 kg, 154.94 cm) 9 17:52 Pain Scale: Adult mb9 ED Course: 17:19 Patient arrived in ED. ts1 17:43 Bridger Lange PA is PHCP. jmm 17:43 Milton Claros MD is Attending Physician. jmm 17:54 Triage completed. mb9 17:55 Arm band placed on. mb9 18:33 Aby Cespedes, RN is Primary Nurse. kc6 18:58 Basic Metabolic Panel Sent. kc6 18:58 CBC with Diff Sent. kc6 18:58 NT PRO-BNP Sent. kc6 18:58 Troponin HS Sent. kc6 18:58 Missed attempt(s): 20 gauge in left antecubital area. kc6 19:02 Patient has correct armband on for positive identification. Placed in gown. Bed in low kc6 position. Call light in reach. Side rails up X2. Adult w/ patient. 19:04 XRAY Chest (1 view) In Process Unspecified. EDMS 19:20 Missed attempt(s): 20 gauge in right antecubital area. ha1 19:27 Notified Nurse Practitioner and/or Physician Interior Wirer of a critical lab result(s), eh3 ANDRES John notified of Lactate 2.2. 19:45 Missed attempt(s): 20 gauge in left antecubital area. ha1 19:55 Shell Cabello PA-C is Hospitalizing Provider. jmm 20:37 Reina Aponte MD is Hospitalizing Provider. sb4 22:34 No provider procedures requiring assistance completed. Patient did not have IV access ha1 during this emergency room visit. Administered Medications: 19:32 Drug: Levalbuterol Inhalation 1.25 mg Route: Inhalation; ha1 21:10 Drug: Hydrocodone-Acetaminophen PO (7.5 mg-325 mg) 1 tabs Route: PO; ha1 21:30 Follow up: Response: No adverse reaction; Pain is decreased; RASS: Alert and Calm (0) ha1 21:10 Drug: Ondansetron PO 4 mg Route: PO; ha1 21:30 Follow up: Response: No adverse reaction; Nausea is decreased ha1 Medication: 17:56 VIS not applicable for this client. mb9 Outcome: 19:56 Decision to Hospitalize by Provider. jmm 22:35 Admitted to ICU accompanied by tech, via stretcher, room 7, with oxygen, with chart, ha1 Report called to OLIVE Alvarado 22:35 Condition: stable 22:35 Discharge instructions given to patient, Instructed on the need for admit. 22:36 Patient left the ED. ha1 Signatures: Dispatcher [employer] EDBridger Chew PA PA jmm Hall, Erin, RN RN eh3 Linette Sanabria RN RN ha1 Aby Cespedes RN RN [email or web address] Shell Cabello, PA-C PA-Rea Travis RN RN mb9 Shantelle Villanueva PAS PAS ts1 Corrections: (The following items were deleted from the chart) 17:55 17:54 Social history: Smoking status: Patient reports the use of cigarette tobacco mb9 products, smokes three packs cigarettes per day. mb9 21:49 21:00 BP 158 / 94; Pulse 97bpm; Resp 18bpm; Spontaneous; Pulse Ox 98% 6 lpm Nasal ha1 Cannula; ha1
--- NOTE | 2022-11-23 19:57 | EDPHYS ---
Physician Documentation [facility] Name: Janie Erickson Age: 62 yrs Sex: Female : 1960 Arrival Date: 11/23/2022 Time: 17:17 Bed 19 Private MD: ED Physician Milton Claros HPI: 11/23 17:57 This 62 yrs old Female presents to ER via Wheelchair with complaints of Abdominal Pain, jmm Back Pain, Shortness Of Breath. 17:57 The patient presents with. This is a 62 year old female with a history of chf, copd, jmm that presents to the ED with complaints of worsening shortness of breath. Patient was evaluated yesterday. States her breathing has become more labored. . Historical: - Allergies: 17:54 codeine sulfate; mb9 17:54 Robaxin; mb9 17:54 Sulfa (Sulfonamide Antibiotics); mb9 17:54 Ultram; mb9 - PMHx: 17:54 Chronic obstructive lung disease; Congestive heart failure; diabetes mellitus; mb9 - PSHx: 17:54 trach; mb9 - Immunization history:: Adult Immunizations up to date. - Social history:: Smoking status: Patient reports the use of cigarette tobacco products, smokes one-half pack cigarettes per day. ROS: 17:57 Constitutional: Negative for fever, chills, and weight loss. jmm 17:57 Cardiovascular: Positive for chest pain. 17:57 Respiratory: Positive for shortness of breath. 17:57 All other systems are negative. Exam: 17:57 Constitutional: This is a well developed, well nourished patient who is awake, alert, jmm and in no acute distress. Head/Face: atraumatic. Eyes: EOMI, no conjunctival erythema appreciated ENT: Moist Mucus Membranes Neck: Trachea midline, Supple Chest/axilla: Normal chest wall appearance and motion. 17:57 Abdomen/GI: Non distended Back: Normal ROM Skin: General appearance color normal MS/ Extremity: Moves all extremities, no obvious deformities appreciated, no edema noted to the lower extremities Neuro: Awake and alert Psych: Behavior is normal, Mood is normal, Patient is cooperative and pleasant 17:57 Cardiovascular: Rate: normal, Rhythm: regular, Pulses: no pulse deficits are appreciated. 17:57 Respiratory: mild respiratory distress is noted, Respirations: labored breathing. Vital Signs: 17:52 BP 124 / 82; Pulse 98; Resp 20; Temp 98.7; Pulse Ox 97% on 8 lpm tracheostomy; Weight mb9 99.79 kg; Height 5 ft. 1 in. ; Pain 8/10; 19:03 BP 187 / 97; Pulse 99; Resp 17 S; Pulse Ox 98% ; kc6 20:00 BP 158 / 94; Pulse 97; Resp 18 S; Pulse Ox 98% on 6 lpm NC; ha1 21:00 BP 136 / 103; Pulse 97; Resp 19 S; Pulse Ox 96% on 6 lpm NC; ha1 22:00 BP 138 / 100; Pulse 98; Resp 20 S; Pulse Ox 96% on 6 lpm NC; ha1 17:52 Body Mass Index 41.57 (99.79 kg, 154.94 cm) mb9 17:52 Pain Scale: Adult mb9 MDM: 17:57 Patient medically screened. [facility] 23:52 Differential diagnosis: copd, pneumonia, acute mi. Data reviewed: vital signs, nurses [facility] notes, lab test result(s), radiologic studies, plain films. Consideration of Admission/Observation Patient was admitted/placed on observation. Management of patient was discussed with the following: Desirae Cabello PA-C. I considered the following discharge prescriptions or medication management in the emergency department Medications were administered in the Emergency Department. See MAR. Counseling: I had a detailed discussion with the patient and/or guardian regarding: the historical points, exam findings, and any diagnostic results supporting the discharge/admit diagnosis, lab results, radiology results, the need for further work-up and treatment in the hospital. 11/23 17:58 Order name: Basic Metabolic Panel; Complete Time: 19:25 [facility] 11/23 17:58 Order name: CBC with Diff; Complete Time: 19:22 [facility] 11/23 17:58 Order name: NT PRO-BNP; Complete Time: 19:25 [facility] 11/23 17:58 Order name: Troponin HS; Complete Time: 19:25 [facility] 11/23 18:33 Order name: Lactate w/ 2H reflex if indic.; Complete Time: 19:27 [facility] 11/23 17:58 Order name: XRAY Chest (1 view); Complete Time: 19:19 [facility] 11/23 17:58 Order name: EKG; Complete Time: 17:58 [facility] 11/23 17:58 Order name: Cardiac monitoring; Complete Time: 19:02 [facility] 11/23 17:58 Order name: EKG - Nurse/Tech [facility] 11/23 17:58 Order name: IV Saline Lock [facility] 11/23 17:58 Order name: Labs collected and sent [facility] 11/23 17:58 Order name: O2 Per Protocol; Complete Time: 18:58 [facility] 11/23 17:58 Order name: O2 Sat Monitoring; Complete Time: 18:58 [facility] Administered Medications: 19:32 Drug: Levalbuterol Inhalation 1.25 mg Route: Inhalation; ha1 21:10 Drug: Hydrocodone-Acetaminophen PO (7.5 mg-325 mg) 1 tabs Route: PO; ha1 21:30 Follow up: Response: No adverse reaction; Pain is decreased; RASS: Alert and Calm (0) ha1 21:10 Drug: Ondansetron PO 4 mg Route: PO; ha1 21:30 Follow up: Response: No adverse reaction; Nausea is decreased ha1 Disposition Summary: 11/23/22 19:56 Hospitalization Ordered Hospitalization Status: Observation jm Condition: Stable jmm Problem: new jmm Symptoms: are unchanged [facility] Bed/Room Type: Standard [facility] Provider: Reina Aponte(11/23/22 20:37) sb4 Location: Intensive Care Unit(11/23/22 20:55) cg Room Assignment: 7-(11/23/22 20:55) cg Diagnosis - COPD/ Chronic obstructive pulmonary disease with (acute) exacerbation [facility] Forms: - Medication Reconciliation Form [facility] - SBAR form [facility] Signatures: Dispatcher [employer] EDMS Bridger Lange PA PA jmm Garcia, Cindy, OLIVE SCHAEFER cg Linette Sanabria RN RN ha1 Shell Cabello PA-C PARea White RN RN [id number] Corrections: (The following items were deleted from the chart) 17:55 17:54 Social history: Smoking status: Patient reports the use of cigarette tobacco 9 products, smokes three packs cigarettes per day. mb9 20:37 19:56 Shell Cabello sb4 20:55 19:56 Telemetry/MedSurg (Inpatient) jmm cg 20:55 19:56 jmm cg
--- NOTE | 2022-11-23 20:46 | P.HP ---
Certification for Inpatient Patient admitted to: Observation With expected LOS: <2 Midnights Patient will require the following post-hospital care: None Practitioner: I am a practitioner with admitting privileges, knowledge of patient current condition, hospital course, and medical plan of care. Services: Services provided to patient in accordance with Admission requirements found in Title 42 Section 412.3 of the Code of Federal Regulations Patient History Date of Service: 11/24/22 Reason for admission: COPD Exacerbation History of Present Illness: Ms. Erickson is a 62-year-old female with history of permanent trach/home vent secondary to chronic hypercapnic respiratory failure, COPD, chronic diastolic congestive heart failure, and insulin-dependent type 2 diabetes who presented to the emergency department with complaints of shortness of breath. She was seen in the ED yesterday and discharged with prednisone and azithromycin. She states she her shortness of breath is worsening, especially when she ambulates, she feels it is difficult to catch her breath. Her labs are significant for WBC13.9, bicarb 38. Chest x-ray showed "Stable patchy bibasilar airspace opacities." Patient currently on home vent with satisfactory sats. Will admit for further evaluation and management of acute on chronic respiratory failure, COPD exacerbation. Allergies codeine Allergy (Verified 09/27/22 23:31) Itching methocarbamol [From Robaxin] Allergy (Verified 10/20/22 06:11) Nausea/Vomiting Sulfa (Sulfonamide Antibiotics) Allergy (Verified 09/27/22 23:31) Itching/Hives/Rash tramadol [From Ultram] Adverse Reaction (Verified 09/27/22 23:31) Nausea/Vomiting Home medications list reviewed: Yes Home Medications: Cyclobenzaprine [Flexeril*] 10 mg PO TID 05/01/21 Famotidine 40 mg PO DAILY 05/01/21 Furosemide [Lasix*] 40 mg PO DAILY 05/01/21 Hydrocodone Bit/Acetaminophen [Hydrocodon-Acetaminophn 10-325] 1 tab PO Q6H PRN 05/01/21 Ipratropium/Albuterol Sulfate [Iprat-Albut 0.5-3(2.5) mg/3 ml] 3 ml NEB QID 05/01/21 Iron/FA/Vit B-Com W/C [Hemocyte Plus*] 1 tab PO BEDTIME 05/01/21 Levothyroxine [Synthroid*] 0.05 mg PO DAILY 05/01/21 Metformin HCl 500 mg PO BID 05/01/21 PARoxetine HCL [Paroxetine HCl] 40 mg PO DAILY 05/01/21 Pregabalin 300 mg PO BID 05/01/21 Quetiapine [Seroquel*] 50 mg PO BEDTIME 05/01/21 Spironolactone 25 mg PO DAILY 05/01/21 Montelukast Sodium 10 mg PO DAILY 10/20/22 Rosuvastatin [Crestor*] 10 mg PO BEDTIME 10/20/22 Roflumilast [Daliresp*] 500 mcg PO DAILY #30 tab 10/21/22 Insulin Glargine,Hum.rec.anlog [Caraglmeg Beltran U-100] 60 units SQ DAILY 11/23/22 - Past Medical/Surgical History Diabetic: Yes -: COPD -: Chronic diastolic congestive heart failure -: Insulin-dependent diabetes -: Home trach/vent 2/2 chronic hypercapnic respiratory failure -: Hypothyroidism -: Hyperlipidemia -: trach -: -: Hysterectomy -: Left knee surgery Psychosocial/ Personal History: Patient lives at home with family - Family History Father -: Cancer Brother -: Diabetes - Social History Smoking Status: Current every day smoker Alcohol use: No CD- Drugs: Yes Caffeine use: Yes Place of Residence: Home Review of Systems Respiratory: Cough, Shortness of Breath Gastrointestinal: Nausea Physical Examination - Vital Signs Temperature: 98.7 F Blood Pressure: 138/100 Pulse: 97 Respirations: 19 Pulse Ox (%): 96 (6L trach) - Physical Exam General: Alert, In no apparent distress, Obese HEENT: Atraumatic, PERRLA, Sclerae nonicteric Neck: Supple, 2+ carotid pulse no bruit Respiratory: Expiratory wheezes Cardiovascular: Regular rate/rhythm, Normal S1 S2 Gastrointestinal: Normal bowel sounds, No tenderness Musculoskeletal: No tenderness Integumentary: No rashes Neurological: Normal speech, Normal affect - Studies Laboratory Data (last 24 hrs) 11/23/22 18:55: WBC 13.90 H, Hgb 11.7 L, Hct 36.4, Plt Count 352 11/23/22 18:55: Sodium 137, Potassium 4.4, BUN 17, Creatinine 1.03 H, Glucose 241 H Assessment and Plan - Problems (Diagnosis) (1) Acute and chronic respiratory failure Current Visit: Yes Status: Acute Qualifiers: Respiratory failure complication: hypercapnia Qualified Code(s): J96.22 - Acute and chronic respiratory failure with hypercapnia (2) Hypertension Current Visit: Yes Status: Chronic Qualifiers: Hypertension type: primary hypertension Qualified Code(s): I10 - Essential (primary) hypertension (3) CHF (congestive heart failure) Current Visit: Yes Status: Chronic Qualifiers: Heart failure type: diastolic Heart failure chronicity: chronic Qualified Code(s): I50.32 - Chronic diastolic (congestive) heart failure (4) COPD (chronic obstructive pulmonary disease) Current Visit: Yes Status: Chronic Qualifiers: COPD type: unspecified COPD Qualified Code(s): J44.9 - Chronic obstructive pulmonary disease, unspecified (5) T2DM (type 2 diabetes mellitus) Current Visit: Yes Status: Chronic Qualifiers: Diabetes mellitus assisted insulin use: with middle or intermediate school principal use Diabetes mellitus complication status: with hyperglycemia Qualified Code(s): E11.65 - Type 2 diabetes mellitus with hyperglycemia; Z79.4 - custodial (current) use of insulin (6) Tracheostomy status Current Visit: Yes Status: Chronic - Plan Patient is admitted for further management of acute on chronic hypercapnic respiratory failure/COPD exacerbation (ICU overflow). Continue IV solumedrol, scheduled bronchodilators, home vent. Lactate trend 2.2 -> 2.5 however patient has not received any IV fluids yet as IV access has been difficult to establish. No source of infection identified to declare sepsis. Suspect lactate elevation secondary to albuterol use & WBC elevation secondary to steroids. Chest CTA yesterday showed "Negative for pulmonary embolism. Chronic right middle lobe atelectasis and mild left basilar atelectasis. No acute findings" Pulmonology not currently available, previously recommended scheduled steroids & bronchodilators. Patient is a daily cigarette and marijuana smoker. Cessation counseling advised. Nicoderm patch provided. Monitor and replete electrolytes per protocol. Reconcile and continue home medications. Lovenox for VTE prophylaxis. Full code. - Advance Directives Does patient have a Living Will: No Does patient have a Durable POA for Healthcare: No - Code Status/Comfort Care Code Status Assessed: Yes Code Status: Full Code Physician Review: Patient Assessed, Agree with Above Assessment and Plan Critical Care: No Time Spent Managing Pts Care (In Minutes): 50
[2022-11-23] MEDS ORDERED: ACETAMINOPHEN 500 MG TAB PO PRN (21:16)
[2022-11-23] MEDS ORDERED: ALBUTEROL 2.5 MG/3 ML NEB SOL NEB PRN (21:16)
[2022-11-23] MEDS ORDERED: ONDANSETRON 4 MG (ODT) TAB ONE (21:26)
[2022-11-23] MEDS ORDERED: HYDROCODONE/APAP 7.5/325 MG TAB ONE (21:26)
[2022-11-23 23:20] VITALS: BMI 39.5
[2022-11-24] MEDS: METHYLPREDNISOLONE 40 MG INJ IV SCH ×3 (00:30→16:24)
[2022-11-24] MEDS: QUETIAPINE 25 MG TAB PO SCH ×2 (00:30→20:13)
[2022-11-24] MEDS: ROSUVASTATIN 10 MG TAB PO SCH ×2 (00:31→20:13)
[2022-11-24] MEDS: PREGABALIN 150 MG CAP PO SCH ×3 (00:31→20:13)
[2022-11-24] MEDS: INSULIN -REGULAR HUMAN 50 UNIT/0.5 ML ML SQ SCH ×5 (00:31→20:38)
[2022-11-24] MEDS ORDERED: NA CHLORIDE 0.9% 500 ML IV ONE (00:40)
[2022-11-24] MEDS ORDERED: ALBUTEROL 2.5 MG/3 ML NEB SOL NEB SCH (01:00)
[2022-11-24 05:00] LABS: Absolute Lymphocytes (CBC) 0.4 K/uL (0.7-4.9); Hematocrit 32.3 % (36.0-45.0); Lymphocytes % 3.5 % (15.3-44.8); MCV 87.6 fL (80-100); MPV 7.2 fL (7.6-11.3); RBC Red Blood Cell Count 3.69 M/uL (3.86-4.86)
[2022-11-24 05:17] LABS: Magnesium 2.6 mg/dL (1.6-2.4); Phosphorus 2.7 mg/dL (2.5-4.9); Potassium 4.6 mEq/L (3.5-5.1)
[2022-11-24 06:02] LABS: Platelet Estimate ADEQ; White Blood Cell Scan OK (OK)
[2022-11-24 06:03] LABS: Blood Morphology Comment NOTED (NOT SEEN); Stomatocytes 1+
[2022-11-24] MEDS: ONDANSETRON 4 MG/2 ML VIAL IV PRN ×2 (07:16→12:26)
[2022-11-24] MEDS: CYCLOBENZAPRINE 10 MG TAB PO SCH ×3 (07:46→20:13)
[2022-11-24] MEDS: METFORMIN HCL 500 MG TAB PO SCH ×2 (07:47→16:24)
[2022-11-24] MEDS ORDERED: INSULIN GLARGINE 100 UNIT/ML SQ SCH (09:00)
[2022-11-24] MEDS ORDERED: LEVOTHYROXINE SOD 0.05 MG TABLET PO SCH (09:00)
[2022-11-24] MEDS ORDERED: ENOXAPARIN 40 MG/0.4 ML SQ SCH (09:00)
[2022-11-24] MEDS ORDERED: SPIRONOLACTONE 25 MG TABLET PO SCH (09:00)
[2022-11-24] MEDS ORDERED: ROFLUMILAST 500 MCG TABLET PO SCH (09:00)
[2022-11-24] MEDS ORDERED: NICOTINE 21 MG/PAT TD SCH (09:00)
[2022-11-24] MEDS ORDERED: PARoxetine HCL 10 MG TAB PO SCH (09:00)
[2022-11-24] MEDS ORDERED: FAMOTIDINE 20 MG TAB PO SCH (09:00)
[2022-11-24] MEDS ORDERED: FUROSEMIDE 20 MG TABLET PO SCH (09:00)
[2022-11-24] MEDS ORDERED: MONTELUKAST 10 MG TAB PO SCH (09:00)
[2022-11-24 09:34] VITALS: O2SAT 100
[2022-11-24] MEDS ORDERED: FLUTICASONE NASAL SPRAY 50 MCG NAS SCH (10:00)
[2022-11-24] MEDS: HYDROCODONE/APAP 10/325 TAB PO PRN ×2 (12:01→20:13)
[2022-11-24] MEDS: ALBUTEROL 2.5 MG/3 ML NEB SOL NEB SCH ×2 (13:00→20:50)
[2022-11-24 13:04] VITALS: TEMP 98.1
--- NOTE | 2022-11-24 16:06 | EKG ---
Test Date: 2022-11-23 Test Time: 19:26:54 Bee Breeder: OMAR MEASUREMENT RESULTS: Intervals: Rate: 94 IA: 152 QRSD: 68 QT: 330 QTc: 412 [place]: P: 61 IA: 152 QRS: 44 T: 57 INTERPRETIVE STATEMENTS: Sinus rhythm with frequent premature ventricular complexes Low voltage QRS Borderline ECG Compared to ECG 11/22/2022 15:39:06 Ventricular premature complex(es) now present Electronically Signed On 11-24-22 16:04:45 CDT by Minh James
[2022-11-24] MEDS ORDERED: AZITHROMYCIN IV 500 MG in NA CHLORIDE 0.9% 250 ML IVPB ONE (18:55)
[2022-11-24] MEDS ORDERED: CEFTRIAXONE 1,000 MG in NA CHLORIDE 0.9% 50 ML IVPB ONE (18:55)
[2022-11-24 20:58] VITALS: BP 163/90
[2022-11-24] MEDS ORDERED: FE SULF/FA/VIT B COMP & C TAB PO SCH (21:00)
--- NOTE | 2022-11-24 23:57 | P.PN ---
Date of Service: 11/24/22 Subjective Pt is doing well. wanting transfer to [facility]. Physical Examination - Vital Signs reviewed - Physical Exam General: Alert, In no apparent distress, Obese Respiratory: End expiratory wheezes Cardiovascular: Regular rate/rhythm, Normal S1 S2 Gastrointestinal: Normal bowel sounds, No tenderness Musculoskeletal: No tenderness Neurological: No focal deficits Assessment and Plan - Problems (Diagnosis) (1) Acute and chronic respiratory failure Current Visit: Yes Status: Acute Qualifiers: Respiratory failure complication: hypercapnia Qualified Code(s): J96.22 - Acute and chronic respiratory failure with hypercapnia (2) Hypertension Current Visit: Yes Status: Chronic Qualifiers: Hypertension type: primary hypertension Qualified Code(s): I10 - Essential (primary) hypertension (3) CHF (congestive heart failure) Current Visit: Yes Status: Chronic Qualifiers: Heart failure type: diastolic Heart failure chronicity: chronic Qualified Code(s): I50.32 - Chronic diastolic (congestive) heart failure (4) COPD (chronic obstructive pulmonary disease) Current Visit: Yes Status: Chronic Qualifiers: COPD type: unspecified COPD Qualified Code(s): J44.9 - Chronic obstructive pulmonary disease, unspecified (5) T2DM (type 2 diabetes mellitus) Current Visit: Yes Status: Chronic Qualifiers: Diabetes mellitus fpc insulin use: with fpc use Diabetes mellitus complication status: with hyperglycemia Qualified Code(s): E11.65 - Type 2 diabetes mellitus with hyperglycemia; Z79.4 - longterm (current) use of insulin (6) Tracheostomy status Current Visit: Yes Status: Chronic - Plan -Continue IV solumedrol, scheduled bronchodilators, home vent. -Lactate trend 2.2 -> 2.5 however patient has not received any IV fluids yet as IV access has been difficult to establish. -No source of infection identified to declare sepsis. Suspect lactate elevation secondary to albuterol use & WBC elevation secondary to steroids. -Chest CTA yesterday showed "Negative for pulmonary embolism. Chronic right middle lobe atelectasis and mild left basilar atelectasis. No acute findings" -Pulmonology not currently available, previously recommended scheduled steroids & bronchodilators. -Patient is a daily cigarette and marijuana smoker. Cessation counseling advised. Nicoderm patch provided. -Monitor and replete electrolytes per protocol. -Reconcile and continue home medications. -Lovenox for VTE prophylaxis. -Full code.
[2022-11-25] MEDS: METHYLPREDNISOLONE 40 MG INJ IV SCH (00:03)
[2022-11-25] MEDS: ONDANSETRON 4 MG/2 ML VIAL IV PRN (01:33)
[2022-11-25] MEDS ORDERED: CEFTRIAXONE 1,000 MG in NA CHLORIDE 0.9% 50 ML IVPB SCH (17:00)
[2022-11-25] MEDS ORDERED: AZITHROMYCIN IV 500 MG in NA CHLORIDE 0.9% 250 ML IVPB SCH (17:00)
== END 2022-11-25 01:45 | disposition short-term general hospital (02) ==
LOC: ER 17:17 → ERHOLD 20:34 → 3RD-ICU 22:15
PROVIDERS: ADMIT Hospitalist; ATTEND Hospitalist
DX: J96.22 Acute and chronic respiratory failure with hypercapnia (principal); I50.32 Chronic diastolic (congestive) heart failure; Z99.81 Dependence on supplemental oxygen; I10 Essential (primary) hypertension; J44.9 Chronic obstructive pulmonary disease, unspecified; E11.65 Type 2 diabetes mellitus with hyperglycemia; Z93.0 Tracheostomy status
CPT/HCPCS: 93005; 85025 ×2; 80048 ×2; 36415; 83735; 84100; 80061; 82947 ×4; 83605 ×3; 84484; 83880; 71045; 94640 ×2; 99285; J1815; Q0162; J7614; J7613 ×2; J1650; J2405 ×3; G0378 ×3; J7050; J7040; J2920 ×4; J0696; J2930; J3475

== ENCOUNTER → 2022-11-26 | Emergency (ER) | payer OTHER ==
[~2022-11-26] MED LIST: LEVALBUTEROL 1.25 MG/3 ML NEB ONE; METHYLPREDNISOLONE 125 MG INJ ONE; NA CHLORIDE 0.9% 1,000 ML ONE
--- OUTSIDE RECORDS SUMMARY | 2022-11-26 17:41 | XMS REPORT | Continuity of Care Document ---
:1960 Author Organization [facility] t Address [address] [place] [address] [address] [place] [address] Care Team Providers Name Role Phone PCP, PATIENT DOES NOT HAVE A Primary Care Physician UnavailAMY Cano Attending Clinician Unavailable Tracy Johnson MD Attending Clinician Amy Guerra MD Attending Clinician TRACY JOHNSON Attending Clinician Unavailable JOSLYN RUELAS Attending Clinician Unavailable Joslyn Ruelas DO Attending Clinician Meenakshi SCHAEFER, Alessandra Garcia Attending Clinician COREY GONZALEZ Attending Clinician Unavailable Jonas Hernandez MD Attending Clinician Corey Gonzalez MD Attending Clinician GEN ACEVEDO Attending Clinician Unavailable Gen Acevedo DO Attending Clinician PAUAL ROWE Attending Clinician Unavailable Paula Rowe MD Attending Clinician Sanjay HENRY Attending Clinician Unavailable Sanjay Kothari Attending Clinician SUNSHINE PELAEZ Attending Clinician Unavailable Kevin Lebron DO Attending Clinician Sunshine Pelaez MD Attending Clinician [phone] VALERIANO PANTOJA Attending Clinician Unavailable Valeriano Pantoja MD Attending Clinician JONAS HERNANDEZ Attending Clinician Unavailable Layne Guallpa MD Attending Clinician SHAHLA ANDRADE Attending Clinician Unavailable Erik DESAI, Janis Pereira Attending Clinician [phone] Cory Cee MD Attending Clinician DUKE VELAZQUEZ Attending Clinician Unavailable [facility] Attending Clinician Patria Brewer LVN Attending Clinician ENE GIVENS Attending Clinician Unavailable ENE GIVENS Attending Clinician Unavailable Ene Givens MD Attending Clinician Doctor Unassigned, [place] Attending Clinician Unavailable LAYNE GUALLPA Attending Clinician Unavailable APARNA BATES Attending Clinician Unavailable Aparna Bates MD Attending Clinician CAMILA ORTIZ Attending Clinician Unavailable GAB NGUYEN Attending Clinician Unavailable JUNE CALDERON Attending Clinician Unavailable TRACY JOHNSON Admitting Clinician Unavailable JOSLYN RUELAS Admitting Clinician Unavailable [...] Number Effective Date Expiration Date S 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 [id number] 2020 [facility] 00:00:00 [employer] OPEN ACCESS [id number] 2022 O NAP 00:00:00 [employer] COMMERCIAL [id number] 2022 OUT OF NETWORK 00:00:00 [employer] [place] [id number] 2019 00:00:00 Problems Condition Condition Condition Status Onset Resolution Last Treating Co mments Source Name Details Category Date Date Treatment Clinician Date Acute on Acute on Disease Recur[facility] chronic [facility]04 [facility] respirator respirator 00:00: Me dical y failure y failure 00 Cent er with with hypoxia hypoxia and and hypercapni hypercapni a a COPD COPD Disease Recurre [facility] (chronic (chronic nce 5-03 [facility] obstructiv obstructiv 00:00: Me dical e e 00 Center pulmonary pulmonary disease) disease) Acute Acute Disease Active [facility] respirator respirator 1-11 [facility] y [place] distress [place] [facility] Chronic Chronic Disease Active [facility] diastolic diastolic 1-11 ity of congestive congestive 00:[place] heart heart 00 Medical failure failure Branch Hypertensi Hypertensi Disease Active U nivers ve urgency ve urgency 1-11 it y of 00:00: [place] [facility] Chest pain Chest pain Disease Active U nivers 8-02 ity of 00:00: [place] [facility] Abdominal Abdominal Disease Active Uni vers pain pain 8- ity of 00:00: [place] [facility] Tracheomal Tracheomal Disease Active U nivers acia acia 7- ity of 00:00: Medical Branch Tracheosto Tracheosto Disease Active U nivers my in my in [address] 00:00: Medical Branch Dyspnea, Dyspnea, Disease Active Unive rs unspecifie unspecifie 7-29 it y of d type d type 00:00: [place] [facility] Acute Acute Disease Active [facility] respirator respirator 7-21 it y of y failure y failure 00:00: [place] s with with 00 Medical hypoxia hypoxia Branch and and hypercapni hypercapni a a Elevated Elevated Disease Active Unive rs brain brain 7-06 ity of natriureti natriureti [place] c peptide c peptide 00 [facility] (BNP) (BNP) Branch level level Anasarca Anasarca Disease Active Unive rs 7-05 ity of 00:00: [place] [facility] Acute Acute Disease Active 2016-07 [facility] respirator respirator 1-09 it y [...] [place] y failure y failure 00 [facility] Branch Obesity Obesity Disease Active Univers (BMI (BMI 3-17 ity of 30-39.9) 30-39.9) 00:00: [place] 00 Medical Branch VAP VAP Disease Active Univers (ventilato (ventilato 11-30 it y of r-associat r-associat 00:00: [place] ed ed 00 Medical pneumonia) pneumonia) Br anch Acute Acute Disease Active Univers respirator respirator 508 it y of y failure y failure 00:00: Compadwight s with with 00 Medical hypercapni hypercapni Br anch a a SOB SOB Disease Active Univers (shortness (shortness 1-10 it y of of breath) of breath) 00:00: [place] 00 [place] Hypoxia Hypoxia Disease Active Univers 9-24 ity of 00:00: [place] [facility] Hypercapni Hypercapni Disease Active U nivers c c 9-01 ity of respirator respirator 00:00: [place] y failure, y failure, 00 Me dical chronic chronic Branch Respirator Respirator Disease Active U nivers y failure y failure 8-16 ity of with with 00:00: [place] hypoxia hypoxia Medical Branch COPD COPD Disease Active Univers exacerbati exacerbati 7-28 it y of on on 00:00: [place] [facility] Respirator Respirator Disease Active U nivers y failure y failure 7-04 ity of with with 00:00: [place] hypoxia hypoxia Medical and and Branch hypercapni hypercapni a a Respirator Respirator Disease Active U nivers y failure y failure 6-09 ity of 00:00: [place] [facility] Hypotensio Hypotensio Disease Active U nivers n n 3-10 ity of 00:00: [place] [facility] COPD COPD Disease Active Univers (chronic (chronic 1-04 ity of obstructiv obstructiv 00:00: [place] e e 00 Medical pulmonary pulmonary Bran ch disease) disease) Allergies, Adverse Reactions, Alerts Allergy Allergy Status Severity Reaction(s) Onset Inactive Treating Comm ents Source Name Type Date Date Clinician METHOCAR Allergy Active High Hives [facility] B[facility]OL 5-03 [facility] 00:00: Medical 00 Center SULFA Allergy Active Other [facility] (SULFONA 5-03 [facility] MIDE 00:00: Medical ANTIBIOT 00 Center ICS) Methocar Propensi Active Hives, Rash C [facility] bamol ty to 5-03 [facility] adverse 00:00: Medical reaction 00 Center s Sulfa Propensi Active Other (See Headache [facility] (Sulfona ty to Comments) 5-03 [facility] mide adverse 00:00: Medical Antibiot reaction 00 Center ics) s CODEINE DRUG Active Unknown-Cmnt Uni vers INGREDI 7-25 ity of 00:00: [place] 00 Medical Branch TRAMADOL DRUG Active Unknown-Cmnt [...] Medical s Branch CIPROFLO DRUG Active Other-Cmnt [facility] ers XACIN INGREDI 03-08 ity of HCL [...] ty to comments 02-22 chela ity of [place] adverse 00:00: swell [place] reaction Medical s to Branch drug LEVOFLOX DRUG [...] Date Stop Date Quantity Comments Source History SDOH University o f Alcohol Std Drinks [place] [facility] History SDOH University o f Alcohol Binge [place] Medic al Branch History SDOH Social Unive rsity of Conne[facility] Med ical Together Branch History SDOH Social Unive rsity of [facility] Medical Branch History SDOH Social Unive rsity of [facility] Medical Membership Branch History SDOH Social Unive rsity of [facility] Medical Meetings Branch History SDOH [facility] Exposure to 2022-11-15 2022-11-[address] [facility] SARS-CoV-2 (event) 00:00:00 03:23:00 Medica l Center History SDOH 2022-11-25 2022-11-[address] [facility] Transport Med 00:00:00 00:00:[address] History SDOH 2022-11-25 2022-11-[address] [facility] Housing Unable to 00:00:00 00:00:00 Medical Center Pay History SDOH 2022-11-25 2022-11-[address] [facility] Places 00:00:00 00:00:00 Medical Ce nter Lived History SDKS 2022-11-25 2022-11-[address] [facility] Housing Homeless 00:00:00 00:00:00 Medical Center Last Year Alcohol intake 2022-11-25 2022-11-25 Ex-drinker [facility] 00:00:00 00:00:00 (finding) Medical Center History of tobacco 2022-11-[address] [facility] use [facility] Medical Center History SDOH 2022-08-06 2022-08-06 1 University o f Alcohol Frequency 00:00:00 00:00:00 [facility] edical Branch History [facility] Social 2022-08-06 2022-08-06 5 Unive rsity of Connections Phone 00:00:00 00:00:00 [facility] SDKS Social 2022-08-06 2022-08-06 3 Unive rsity of Connections Living 00:00:00 00:00:00 [facility] Branch History [facility] 2022-08-06 2022-08-06 7 University o f Physical Activity 00:00:00 00:00:00 [facility] DPW Branch History [facility] 2022-08-06 2022-08-06 1 University o f Physical Activity 00:00:00 00:00:00 [facility] MPS Branch History [facility] 2022-08-06 2022-08-06 5 University o f Financial 00:00:00 00:00:00 [facility] History [facility] Food 2022-08-06 2022-08-06 1 Univers ity of Worry 00:00:00 00:00:00 [facility] History [facility] Food 2022-08-06 2022-08-06 1 Univers ity of Scarcity 00:00:00 00:00:00 [facility] Cigarettes smoked 2022-08-05 2022-08-05 Univers ity of current (pack per 00:00:00 00:00:00 [facility] day) - Reported Branch Cigarette 2022-08-05 2022-08-05 University of pack-years 00:00:00 00:00:00 [facility] Tobacco use and 2022-08-05 2022-08-05 Smokeless Universit y of exposure 00:00:00 00:00:00 tobacco non-user [facility] dical Dulce Tobacco Comment 2022-02-12 2022-02-12 Pt trached Universit y of 00:00:00 00:00:00 [facility] Sex Assigned At [address] [facility] Yvonne kes 00:00:00 00:00:00 Medical Center Smoking Status Start Date Stop Date Source Ex-smoker 2022-11-25 00:00:00 2022-11-25 00:00:[address] [facility] Smokes tobacco daily 2022-02-12 00:00:00 [facility] acute hospital Medications Ordered Filled Start Stop Current Ordering Indication Dosage Frequency Signature Comments Components Source Medication Medication Date Date Medication? Clinician (SIG) Name Name pregabalin 2022- Yes 300mg Q.5D Take [address] [facility] (LYRICA) 11-26- capsule [facility] 300 MG 00:00: 23:59 (300 mg Medical capsule 00 :00 total) by Center mouth in the morning and 1 capsule (300 mg total) before bedtime. Do all this for 30 days. Max Daily Amount: 600 mg. QUEtiapine 2022- Yes 50mg QD Take [address] [facility] (SEROquel) 11-26- tablet (50 Yvonne kes 50 MG 00:00: 23:59 mg total) Medica l tablet 00 :00 by mouth Center nightly for 30 days. amLODIPine 2022- Yes 5mg QD Take [address] [facility] (NORVASC) 5 11-26-03 tablet (5 Yvonne kes MG tablet 00:00: 23:59 mg total) Me dical 00 :00 by mouth Center in the morning for 30 days. furosemide 2022- Yes 20mg QD Take [address] [facility] (LASIX) 20 11-26-03 tablet (20 Yvonne kes MG tablet 00:00: 23:59 mg total) Me dical 00 :00 by mouth Center in the morning for 30 days. PARoxetine 2022- Yes 10mg QD Take [address] [facility] (PAXIL) 10 - 06-03 tablet (10 Yvonne kes MG tablet 00:00: 23:59 mg total) Me dical 00 :00 by mouth Center in the morning for 30 days. rosuvastati 2022- Yes 10mg QD Take [address] [facility] n (CRESTOR) 11-26 06-03 tablet (10 L ukes 10 MG 00:00: 23:59 mg total) Medica l tablet 00 :00 by mouth Center in the morning for 30 days. spironolact 2022- Yes 25mg QD Take [address] [facility] one 5-04 06-03 tablet (25 [facility] (ALDACTONE) 00:00: 23:59 mg total) Medical 25 MG 00 :00 by mouth Center tablet in the morning for 30 days. tamsulosin 2022- Yes .4mg QD Take [address] [facility] (FLOMAX) 5-04 06-03 capsule [facility] 0.4 mg Cap 00:00: 23:59 (0.4 mg Med ical 24 hr 00 :00 total) by Center capsule mouth in the morning for 30 days. tamsulosin 2022- No .4mg QD Take [address] [facility] (FLOMAX) 5-04 05-04 capsule [facility] 0.4 mg Cap 00:00: 00:00 (0.4 mg Med ical 24 hr 00 :00 total) by Center capsule mouth in the morning for 30 days. amLODIPine 2022- No 5mg QD Take [address] [facility] (NORVASC) 5 5- 05-04 tablet (5 Yvonne kes MG tablet 00:00: 00:00 mg total) Me dical 00 :00 by mouth Center in the morning for 30 days. furosemide 2022- No 20mg QD Take [address] [facility] (LASIX) 20 5- 05-04 tablet (20 Yvonne kes MG tablet 00:00: 00:00 mg total) Me dical 00 :00 by mouth Center in the morning for 30 days. rosuvastati 2022- No 10mg QD Take [address] [facility] n (CRESTOR) 5- 05-04 tablet (10 L ukes 10 MG 00:00: 00:00 mg total) Medica l tablet 00 :00 by mouth Center in the morning for 30 days. spironolact 2022- No 25mg QD Take [address] [facility] one 5-04 05-04 tablet (25 [facility] (ALDACTONE) 00:00: 00:00 mg total) Medical 25 MG 00 :00 by mouth Center tablet in the morning for 30 days. PARoxetine 2022- No 10mg QD Take [address] [facility] (PAXIL) 10 5-04 05-04 tablet (10 Yvonne kes MG tablet 00:00: 00:00 mg total) Me dical 00 :00 by mouth Center in the morning for 30 days. predniSONE 2022- Yes [id number] 50mg Take 5 Univers 10 mg 2-16 -21 tablets by ity of tablet 00:00: 05:59 mouth in [place] 00 :00 the Medical morning Branch for [...] 00 :00 dose, On Medica l %) [facility] nebulizer 09/09/22 at solution 5 0800, CT mg predniSONE 2022- No [id number] Take 3 Univers 10 mg -17 08-21 06 tablets by ity of tablet 00:00: 05:59 mouth [place] 00 :00 daily for Medical 3 days, Branch THEN 2 tablets daily for 3 days, THEN 1 tablet daily for 3 days. predniSONE 2022-2022- No [id number] Take 3 Univers 10 mg 1-17 08-21 06 tablets by ity of tablet 00:00: 05:59 mouth [place] 00 :00 daily for Medical 3 days, Branch THEN 2 tablets daily for 3 days, THEN 1 tablet daily for 3 days. HYDROcodone 2022-0 Yes 1{tbl} Take 1 Un alexia -acetaminop 1-16 tablet by ity of hen 10-325 17:04: mouth [place] mg tablet 37 every 8 Medical (eight) Branch hours as needed. cyclobenzap 2022-0 Yes 10mg Take 10 mg Univers rine 5 mg 1-16 by mouth 3 ity of tablet 17:04: (three) [place] 37 times Medical daily. Branch LORazepam 2022-0 Yes .5mg Take 0.5 Univ ers 0.5 mg 1-16 mg by ity of tablet 17:04: mouth 2 [place] 37 (two) Medical times Branch daily as needed. ipratropium 0 Yes 1{ampul 1 Ampule Univers -albuterol 1-16 e} every 4 ity of 0.5 mg-3 17:04: (four) [place] mg(2.5 mg 37 hours as Medica l base)/3 mL needed for [facility] nebulizer Wheezing. solution dulaglutide 0 Yes Trulicity [...] mouth ity of tablet 17:04: in the [place] [address] morning. Medical Branch Levothyroxi 0 Yes 50ug Take 50 Uni vers ne 100 mcg 1-16 mcg by ity of capsule 17:04: mouth. [place] [address] Medical Branch famotidine 0 Yes 40mg Take 40 mg U nivers 40 mg 1-16 by mouth ity of tablet 17:04: in the [place] [address] morning. Medical Branch magnesium 0 Yes 500mg Take 500 Uni vers gluconate 1-16 mg by ity of (MAG-G 17:04: mouth at [place] ORAL) 37 bedtime. Medical Branch montelukast 0 [...] mouth 3 ity of tablet 17:04: (three) [place] 37 times Medical daily. Branch LORazepam 2022-0 Yes .5mg Take 0.5 Univ ers 0.5 mg 1-16 mg by ity of tablet 17:04: mouth 2 [place] 37 (two) Medical times Branch daily as needed. ipratropium 0 Yes 1{ampul 1 Ampule Univers -albuterol 1-16 e} every 4 ity of 0.5 mg-3 17:04: (four) [place] mg(2.5 mg 37 hours as Medica l base)/3 mL needed for [facility] nebulizer Wheezing. solution dulaglutide 2022-0 Yes Trulicity [...] mouth ity of tablet 17:04: in the [place] [address] morning. Medical Branch Levothyroxi 0 Yes 50ug Take 50 Uni vers ne 100 mcg 1-16 mcg by ity of capsule 17:04: mouth. [place] [address] Medical Branch famotidine 0 Yes 40mg Take 40 mg U nivers 40 mg 1-16 by mouth ity of tablet 17:04: in the [place] [address] morning. Medical Branch magnesium 0 Yes 500mg Take 500 Uni vers gluconate 1-16 mg by ity of (MAG-G 17:04: mouth at [place] ORAL) 37 bedtime. Medical Branch montelukast 0 [...] mouth 3 ity of tablet 17:04: (three) [place] 37 times Medical daily. Branch LORazepam 2022-0 Yes .5mg Take 0.5 Univ ers 0.5 mg 1-16 mg by ity of tablet 17:04: mouth 2 [place] [address] (two) Medical times Branch daily as needed. ipratropium 0 Yes 1{ampul 1 Ampule Univers -albuterol 1-16 e} every 4 ity of 0.5 mg-3 17:04: (four) [place] mg(2.5 mg 37 hours as Medica l base)/3 mL needed for [facility] nebulizer Wheezing. solution dulaglutide 0 Yes Trulicity U nivers (TRULICITY) 1-16 3 mg/0.5 ity of 3 mg/0.5 mL 17:04: mL [place] PnIj 37 subcutaneo Medical pen Branch injector metFORMIN 0 Yes 750mg Take 750 Uni vers 500 mg 24 1-16 mg by ity of hr tablet 17:04: mouth [place] [address] daily with Medical breakfast. Branch spironolact 0 Yes 25mg Take 25 mg Univers one 25 mg 1-16 by mouth ity of tablet 17:04: in the [place] [address] morning. Medical Branch Levothyroxi 0 Yes 50ug Take 50 Uni vers ne 100 mcg 1-16 mcg by ity of capsule 17:04: mouth. [place] [address] Medical Branch famotidine 0 Yes 40mg Take 40 mg U nivers 40 mg 1-16 by mouth ity of tablet 17:04: in the [place] [address] morning. Medical Branch magnesium 0 Yes 500mg Take 500 Uni vers gluconate 1-16 mg by ity of (MAG-G 17:04: mouth at [place] ORAL) 37 bedtime. Medical Branch montelukast 0 Yes 10mg Take 10 mg Univers 10 mg 1-16 by mouth. ity of tablet 17:04: [place] [address] Medical Branch ondansetron 2022-0 2022- No 8mg Take 8 mg Univers 8 mg -16 -16 by mouth ity of disintegrat 15:21: 00:00 every 8 [place] ing tablet 55 :00 (eight) Medica l hours as Branch needed for Nausea and Vomiting (N/V). ondansetron 2022-0 2022- No 8mg Take 8 mg Univers (ZOFRAN) 8 -16 -16 by mouth ity of mg tablet 15:21: 00:00 every 8 [place] :00 (eight) Medical hours as Branch needed. predniSONE 2023-0 Yes 30mg 30 mg, Unive rs (DELTASONE) 1-16 Oral, ity of tablet 30 14:45: DAILY, [place] mg 00 First dose Medical (after Branch last modificati on) on Wed08/10/22 at 0845, Until Discontinu ed, Routine ondansetron 2023-0 Yes 4mg 4 mg, Slow Univers (ZOFRAN 1-16 IV Push, ity of (PF)) 06:08: Q6HPRN, [place] injection 4 12 Starting Medi michel mg on Wed Branch 08/10/22 at 0008, Until Discontinu ed, Routine, Nausea and Vomiting (N/V) hydrOXYzine 2023-0 Yes [id number] 10mg Take 1 Univers 10 mg 1-16 06 tablet by ity of tablet 00:00: mouth [place] 00 every 8 Medical (eight) Branch hours as needed for Anxiety. pregabalin 2023-0 Yes [id number] 300mg Take 1 Univers 300 mg 1-16 06 capsule by ity of capsule 00:00: mouth in [place] the Medical morning Branch and 1 capsule in the evening. hydrOXYzine 2023-0 Yes [id number] 10mg Take 1 Univers 10 mg 1-16 06 tablet by ity of tablet 00:00: mouth [place] 00 every 8 Medical (eight) Branch hours as needed for Anxiety. pregabalin 2023-0 Yes [id number] 300mg Take 1 Univers 300 mg 1-16 06 capsule by ity of capsule 00:00: mouth in [place] the Medical morning Branch and 1 capsule in the evening. hydrOXYzine 2023-0 Yes [id number] 10mg Take 1 Univers 10 mg 1-16 06 tablet by ity of tablet 00:00: mouth [place] 00 every 8 Medical (eight) Branch hours as needed for Anxiety. pregabalin 2023-0 Yes [id number] 300mg Take 1 Univers 300 mg 1-16 06 capsule by ity of capsule 00:00: mouth in [place] [address] the Medical morning Branch and 1 capsule in the evening. furosemide 2023-0 2023- No 20mg 20 mg, Univ ers (LASIX) 1-15 -15 Slow IV ity of injection 14:45: 14:07 Push, [place] 20 mg 00 :00 ONCE, 1 Medical dose, On Branch 08/09/22 at 0845, Routine PARoxetine Yes 40mg 40 mg, Unive rs (PAXIL) 14 Oral, ity of tablet 40 16:45: DAILY, [place] mg 00 First dose Medical (after Branch last modificati on) on 08/08/22 at 1045, Until Discontinu ed, Routine sulfur 2022- No [id number] 5mL 5 mL, Unive rs hexafluorid 08-07 Intravenou i ty of e microsphr 17:00: 17:00 s, ONCE, 1 [place] (LUMASON) 00 :00 dose, On Medica l injection 5 Fri Branch mL 08/07/22 at 1100, Routine
science faculty member approving Restricted medication : STELLA [...] ) tablet 5 06:30: 05:50 ONCE, 1 [place] as mg 00 :00 dose, On Medical Fri Branch 08/07/22 at 0030, Routine midodrine 0 2022- No 5mg 5 mg, Univer s [...] On Anayeli 08/06/22 at 1515, STAT midodrine 2022-2022- No 10mg 10 mg, Unive rs (PROAMATINE 08-06 Oral, TID, i ty of ) tablet 10 20:15: 23:07 First dose [place] mg 00 :59 (after Medical last Branch reorder) on Anayeli 08/06/22 at 1415, Until Discontinu ed, CT iopamidol 2022- No [id number] 90mL 90 mL, Univers (ISOVUE 08-06 Intravenou ity o f 370-500 mL) 16:45: 17:00 s, ONCE, 1 [place] injection 00 :00 dose, On Medica l 90 mL Anayeli Branch 08/06/22 at 1100, Routine insulin 2022- Yes 25U 25 Units, Unive rs glargine 12 Subcutaneo ity o f (LANTUS 15:00: us, DAILY, [place] U-100) 00 First dose Medical injection on Anayeli Branch 25 Units 08/06/22 at 0900, Until Discontinu ed, Routine NaCl 0.9% 2022- No 500mL at 999 Univ ers (NS) bolus 08-0612 mL/hr, 500 it y of infusion 14:00: 13:40 mL, IV [place] 500 mL 00 :02 Piggyback, Medical ONCE, 1 Branch dose, On Anayeli 08/06/22 at 0800, STAT midodrine 2022-0 2022- No 10mg 10 mg, Unive rs (PROAMATINE 08-06 Oral, ity of ) tablet 10 14:00: 13:28 ONCE, 1 [place] mg 00 :00 dose, On Medical Anayeli Branch 08/06/22 at 0800, CT insulin 2023-0 2022- No 15U 15 Units, Univ ers glargine 08-06 Subcutaneo ity of (LANTUS 05:30: 07:08 us, ONCE, [place] U-100) 00 :00 1 dose, On Medical injection [facility] Branch 15 Units 08/05/22 at 2330, CT pregabalin Yes 300mg 300 mg, Uni vers (LYRICA) 12 Oral, BID, ity o f capsule 300 04:45: First dose [place] mg 00 on Wed Medical 08/05/22 at Branch 2245, Until Discontinu ed, Routine QUEtiapine Yes 75mg 75 mg, Unive rs (SEROQUEL) 08-06 Oral, QHS, ity of tablet 75 04:45: First dose [place] mg 00 on Wed Medical 08/05/22 at Branch 2245, Until Discontinu ed, Routine acetaminoph Yes 1000mg 1,000 mg, Univers en 08-06 Oral, ity of (TYLENOL) 04:40: BIDPRN, [place] tablet 20 Starting Medical 1,000 mg on Wed Branch 08/05/22 at 2240, Until Discontinu ed, Routine, Pain (scale 1-3) ceFEPIme 2022- No 1000mg 1,000 mg, U nivers (MAXIPIME) 08-05 IV ity of 1,000 mg in 22:00: 21:59 [facility], [place] NaCl 0.9% 00 :00 Q8H ABX, Medica [...] at 100 Uni vers (NS) IV 08-05 01-13 mL/hr, IV ity of infusion 16:30: 01:11 [...] Sliding 0 Yes Subcutaneo Univ ers Scale 1-11 us, Q4H, ity of Insulin - 15:30: [...] Yes 10mg 10 mg, Univ ers rine 11 Oral, TID, ity of (FLEXERIL) 07:45: First dose [place] tablet 10 00 on Wed Medical mg 08/05/22 at Branch 0145, Until Discontinu ed, Routine pantoprazol 2022- No 40mg 40 mg, Uni vers e 08-05 Slow IV ity of (PROTONIX) 07:45: 15:39 Push, [place] injection 00 :23 Q24H, Medical 40 mg First dose Branch on Wed08/05/22 at 0145, Until Discontinu ed metoprolol 2022-0 2022- No 25mg 25 mg, Univ ers succinate 08-05 Oral, ity of XL (TOPROL 07:45: 15:43 DAILY, [place] XL) tablet 00 :08 First dose Med ical 25 mg on Wed Branch 08/05/22 at 0145, Until Discontinu ed, Routine aspirin 2022-0 202- No 81mg 81 mg, Univers chewable 08-05 Oral, QAM ity o f tablet 81 07:45: 15:43 WITH [place] mg 00 :08 BREAKFAST, Medical First dose Branch on Wed08/05/22 at 0145, Until Discontinu ed, Routine morpHINE (2 2022-0 Yes 2mg 2 mg, Slow Univers mg/mL) [...] 0135, Until Discontinu ed, Routine, Anxiety budesonide 2022-0 Yes .5mg 0.5 mg, Univ ers (PULMICORT 08-05 Inhalation ity of RESPULE) 07:30: , BID, [place] nebulizer 00 First dose Medi michel solution on Wed Branch 0.5 mg 08/05/22 at 0130, Until Discontinu ed, Routine ipratropium 2022-0 Yes 3mL 3 mL, Unive rs -albuteroL 08-05 Inhalation ity of (DUONEB) 07:30: , Q4H, [place] 0.5 mg-3 00 First dose Medic al mg(2.5 mg on Wed Branch base)/3 mL 08/05/22 at nebulizer 0130, solution 3 Until mL Discontinu ed, Routine methylPREDN 2022- No 40mg 40 mg, Uni vers ISolone sod 11 01-12 Intravenou i ty of succ 07:30: 15:21 s, Q8H, [place] (SOLU-MEDRO 00 :13 First dose Me dical L (PF)) on Wed Branch injection 08/05/22 at 40 mg 0130, Until Discontinu ed, 1 mL glucagon Yes 1mg 1 mg, Univers (GLUCAGEN 11 Intramuscu ity of DIAGNOSTIC 07:27: [place], PRN, [place] KIT) 58 Starting Medical injection 1 on Wed Branch mg 08/05/22 at 0127, Until Discontinu ed, CT, Blood Glucose < or = 70 mg/dL and patient is unable to swallow or has mental changes. dextrose 50 Yes 25mL 25 mL, Univ ers % in water 08-05 Slow IV ity of (D50W) 07:27: Push, PRN, [place] injection 58 Starting Medica l 25 mL on Wed Branch 08/05/22 at 0127, Until Discontinu ed, CT, Blood Glucose < or = 70 mg/dL and patient is unable to swallow or has mental status changes. methylpredn 2021-07 Yes 125mg 125 mg, Un alexia isolone sod 08-05 Intravenou it y of succ 06:00: s, Q6H, [place] (SOLU-MEDRO 00 First dose Me dical L) on Wed Branch injection 06/05/22 125 mg at 0000, Until Discontinu ed, Routine iopamidol 2021-07- No [id number] 75mL 75 mL, Univers (ISOVUE 05-13 Intravenou ity o f 370-500 mL) 07:00: 07:00 s, ONCE, 1 [place] injection 00 :00 dose, On Medica l 75 mL Wed Branch 05/13/22 at 0200, Routine HYDROcodone 2021-07- No 1{tbl} 1 tablet, Univers -acetaminop 008 10-08 Oral, ity of hen (NORCO) 07:15: [...] 04/28/22 at 2315, STAT amoxicillin 2021-07 Yes [id number] 500mg Take 1 Univers -pot 0-05 tablet by ity of clavulanate 00:00: mouth [place] 500 mg 00 every 12 Medical 500-125 mg (twelve) Branc h tablet hours. amoxicillin 2021-07 Yes [id number] 500mg Take 1 Univers -pot 0-05 tablet by ity of clavulanate 00:00: mouth [place] 500 mg 00 every 12 Medical 500-125 mg (twelve) Branc h tablet hours. amoxicillin 2021-07 Yes [id number] 500mg Take 1 Univers -pot 0-05 tablet by ity of clavulanate 00:00: mouth [place] 500 mg 00 every 12 Medical 500-125 mg (twelve) Branc h tablet hours. amoxicillin 2021-07 Yes [id number] 500mg Take 1 Univers -pot 0-05 tablet by ity of clavulanate 00:00: mouth [place] 500 mg 00 every 12 Medical 500-125 mg (twelve) Branc h tablet hours. amoxicillin 2021-07- No [id number] 500mg Take 1 Univers -pot 0-05 01-16 [...] as Medica l base)/3 mL needed for [facility] nebulizer Wheezing. solution dulaglutide Yes Trulicity U [...] Medica l base)/3 mL needed for [facility] nebulizer Wheezing. solution dulaglutide 0 Yes Trulicity [...] Medica l base)/3 mL needed for [facility] nebulizer Wheezing. solution dulaglutide Yes Trulicity U nivers (TRULICITY) 8-05 3 mg/0.5 ity of 3 mg/0.5 mL 17:58: mL [place] [facility] injector metFORMIN 0 Yes [...] needed for Nausea and Vomiting (N/V). Levothyroxi 2022-0 Yes 50ug Take 50 Uni [...] as Medica l base)/3 mL needed for [facility] nebulizer Wheezing. solution dulaglutide Yes Trulicity U [...] mcg by ity of capsule 17:58: mouth. [place] 14 Medical Branch HYDROcodone 0 Yes 1{tbl} [...] as Medica l base)/3 mL needed for [facility] nebulizer Wheezing. solution dulaglutide Yes Trulicity U [...] mouth 3 ity of tablet 17:58: (three) [place] 14 times Medical daily. Branch LORazepam 0 [...] Medica l base)/3 mL needed for [facility] nebulizer Wheezing. solution dulaglutide 0 Yes Trulicity U nivers (TRULICITY) 8-05 3 mg/0.5 ity of 3 mg/0.5 mL 17:58: mL [place] PnIj 14 subcutaneo Medical pen Branch injector metFORMIN 0 Yes 750mg Take 750 Uni vers 500 mg 24 8-05 mg by ity of hr tablet 17:58: mouth [place] [id number] daily with Medical breakfast. Branch spironolact 0 Yes 25mg Take 25 mg Univers one 25 mg 8-05 by mouth ity of tablet 17:58: in the [place] 14 morning. Medical Branch ondansetron 0 Yes [...] 17:58: mouth. [place] 14 Medical Branch semaglutide 0 2021- No inject Uni vers (OZEMPIC) 8-05 08-05 under the ity of 0.25 mg or 15:36: 00:00 skin. [place] 0.5 mg(2 41 :00 Medical mg/1.5 mL) Branch PnIj famotidine 0 2021- No 40mg Take 40 mg Univers 40 mg 8-05 08-05 by mouth ity of tablet 15:36: 00:00 in the [place] 41 :00 morning. Medical Branch melatonin 0 Yes 6mg 6 mg, Univers (MELATIN) 8-04 Oral, QPM, ity of tablet 6 mg [...] at 999 Unive rs ringers IV 02-24 mL/hr, 500 it y of infusion 17:30: 03:57 mL, [place] 500 mL 00 :22 Intravenou Medical s, ONCE, 1 Branch dose, On Wed02/24/22 at 1230, Routine lactated 2021- No 500mL at 999 Unive rs ringers IV 02-24 mL/hr, 500 it y of infusion 17:30: [...] michel tablet 1 on Wed Branch tablet 02/24/22 at 0445, Until Discontinu ed, [...] s vasopresso r at a time.
lactated No 1000mL at 999 Univ ers ringers IV 02-24 mL/hr, ity of infusion 03:15: 02:10 1,000 mL, Compa as 1,000 mL 00 :00 Intravenou Medic al s, ONCE, 1 Branch dose, On Wed02/23/22 at 2215, Routine sennosides Yes 8.6mg 8.6 mg, Uni vers (SENOKOT) 02-23 Oral, ity of tablet 8.6 22:45: DAILY, [place] mg 00 First dose Medical on [facility] 02/23/22 at 1745, Until Discontinu ed, Routine simethicone Yes 80mg 80 mg, Univ ers (GAS RELIEF 02-23 Oral, ity of (SIMETHICON 14:00: PC+HS, [place] E)) 00 First dose Medical chewable on [facility] tablet 80 02/23/22 at mg 0900, Until Discontinu ed, Routine metoprolol 2021- No 25mg 25 mg, Univ ers succinate 02-23 Oral, BID, ity of XL (TOPROL 13:00: 03:28 First dose [place] XL) tablet 00 :[address] [facility] Medical 25 mg 02/23/22 at Branch 0800, Until Discontinu ed, Routine melatonin No 6mg 6 mg, Univer s (MELATIN) 02-23 Oral, ONCE ity of tablet 6 mg 08:15: 07:18 NOW, 1 Compa as 00 :00 dose, On Medical [facility] 02/23/22 Branch at 0315, Routine hydrOXYzine No 10mg 10 mg, Uni vers (ATARAX) 02-23 Oral, ity of tablet 10 01:58: 03:43 Q8HPRN, [place] mg 32 :01 Starting Medical on [facility] 02/22/22 at 2058, Until [facility] 02/23/22 at 2243, Routine, Anxiety ondansetron 2021- No 4mg 4 mg, Slow Univers (ZOFRAN 02-23 IV Push, ity of (PF)) 00:15: 00:39 ONCE, On [place] injection 4 00 :00 Sun Medical mg [...] (after Medical last Branch modificati on) on Wed02/22/22 at 1430, Until Discontinu ed, Routine trimethoben [...] 1 last Branch tablet modificati on) on [place] 02/22/22 at 1200, Until Discontinu ed, Routine acetaminoph 2021- No 650mg 650 mg, U nivers en 02-2203 Oral, ity of (TYLENOL) 14:35: 08:19 Q6HPRN, [place] tablet 650 20 :38 Starting Medic al mg on [place] Branch 02/22/22 at 0935, Until 02/25/22 at 0319, Routine, Pain (scale 1-3) ceFEPIme No 2000mg 2,000 mg, U nivers (MAXIPIME) 02-22 IV ity of 2,000 mg in 13:15: 14:10 Piggyback, [place] NaCl 0.9% 00 :00 ONCE, 1 Medical (NS) 50 mL dose, On Branc h MINI-BAG [place] 02/22/22 at 0815, Administer over 30 Minutes, 50 mL
Reas on for Anti-Infec tive: Documented Infection< br>Documen alden Infection Site: Respirator y
Du ration of Therapy: 10 days acetaminoph No 500mg 500 mg, U nivers en 02-22 Oral, ONCE ity of (TYLENOL) 10:30: 09:34 NOW, 1 [place] tablet 500 00 :00 dose, On Medic al mg [facility] 02/22/22 at 0530, Routine HYDROcodone 2021- No [...] :00 dose, On Medi michel tablet 1 [facility] Branch tablet 02/21/22 at 1815, Routine rosuvastati Yes 10mg 10 mg, Univ ers n (CRESTOR) 30 Oral, ity of tablet 10 14:00: DAILY, [place] mg 00 First dose Medical on [facility] Branch 02/21/22 at 0900, Until Discontinu ed, Routine aspirin Yes 81mg 81 mg, Univers chewable 02-21 Oral, ity of tablet 81 14:00: DAILY, [place] mg 00 First dose Medical on [facility] Branch 02/21/22 at 0900, Until Discontinu ed, Routine spironolact 2021- No 25mg 25 mg, Uni vers one 02-21 0803 Oral, ity of (ALDACTONE) 14:00: 03:59 DAILY, Compa as tablet 25 00 :42 First dose Medi michel mg on [facility] Branch 02/21/22 at 0900, Until Discontinu ed, Routine furosemide No 40mg 40 mg, Univ ers (LASIX) 02-21 0802 Oral, ity of tablet 40 14:00: 03:28 DAILY, [place] mg 00 :19 First dose Medical on [facility] Branch 02/21/22 at 0900, Until Discontinu ed, Routine predniSONE No 40mg 40 mg, Univ ers (DELTASONE) 02-21 0730 Oral, ity of tablet 40 14:00: 13:46 DAILY, [place] mg 00 :51 First dose Medical on [facility] 02/21/22 at 0900, Until Discontinu ed, Routine HYDROcodone 2021- No 1{tbl} 1 tablet, Univers -acetaminop 02-21 07 Oral, ity of hen (NORCO 12:00: 11:09 ONCE, 1 Compa as 5) 5-325 mg 00 :00 dose, On Medi michel tablet 1 [facility] tablet 02/21/22 at 0700, Routine albuterol Yes 2.5mg 2.5 mg, Univ ers (PROVENTIL) 02-21 Inhalation it y of 2.5 mg /3 03:00: , Q8H, [place] mL (0.083 00 First dose Medi michel %) on [facility] [place] Branch nebulizer 02/20/22 at solution 2200, 2.5 mg Until Discontinu ed, Routine QUEtiapine Yes 50mg 50 mg, Unive rs (SEROQUEL) 02-21 Oral, QHS, ity of tablet 50 02:30: First dose [place] mg 00 on Fri Medical 02/20/22 at Branch 2130, Until Discontinu ed, Routine Sliding Yes Subcutaneo Univ ers Scale 02-21 us, TID ity of Insulin - 02:00: MEALS+HS, Compa as Lispro 00 First dose Medical (HumaLOG) + on Fri Branch Fsbg 02/20/22 at Testing 2100, Until [...] of 2,000 mg in 01:00: 02:37 Piggyback, [place] NaCl 0.9% 00 :00 ONCE, 1 Medical [...] KIT) 19 Starting Medical injection 1 on Fri Branch mg 02/20/22 at 195, Until Discontinu [...] by ity of tablet 00:00: mouth in [place] [address] the Medical morning. Branch furosemide 2021-0 Yes 40mg Take 1 Unive rs 40 mg 7-27 tablet by ity of tablet 00:00: mouth in [place] [address] the Medical morning. Branch furosemide 2021-0 Yes 40mg Take 1 Unive rs 40 mg 7-27 tablet by ity of tablet 00:00: mouth in [place] [address] the Medical morning. Branch furosemide 2021-0 Yes 40mg Take 1 Unive rs 40 mg 7-27 tablet by ity of tablet 00:00: mouth in [place] [address] the Medical morning. Branch furosemide 2022-0 Yes 40mg Take 1 Unive rs 40 mg 7-27 tablet by ity of tablet 00:00: mouth in [place] [address] the Medical morning. Branch furosemide 2022-0 Yes 40mg Take 1 Unive rs 40 mg 7-27 tablet by ity of tablet 00:00: mouth in [place] [address] the Medical morning. Branch furosemide 2022-0 Yes 40mg Take 1 Unive rs 40 mg 7-27 tablet by ity of tablet 00:00: mouth in [place] 00 the Medical morning. Branch furosemide 2021-0 Yes 40mg Take 1 Unive rs 40 mg 7-27 tablet by ity of tablet 00:00: mouth in [place] 00 the Medical morning. Branch furosemide 2021-0 Yes 40mg Take 1 Unive rs 40 mg 7-27 tablet by ity of tablet 00:00: mouth in [place] 00 the Medical morning. Branch furosemide 202-0 Yes 40mg Take 1 Unive rs 40 mg 7-27 tablet by ity of tablet 00:00: mouth in [place] 00 the Medical morning. Branch furosemide 202-0 Yes 40mg Take 1 Unive rs 40 mg 7-27 tablet by ity of tablet 00:00: mouth in [place] 00 the Medical morning. Branch HYDROcodone 2021-0 [...] Medica l base)/3 mL needed for [facility] nebulizer Wheezing. solution semaglutide 2021-0 Yes inject [...] mouth ity of tablet 18:10: in the [place] [address] morning Medical and 25 mg Branch at [...] as Medica l base)/3 mL needed for [facility] nebulizer Wheezing. solution semaglutide Yes inject Univ [...] mouth ity of tablet 18:10: in the [place] [address] morning Medical and 25 mg Branch at noon and 25 mg in the evening. pregabalin 2021-0 Yes 300mg 300 mg, Uni vers (LYRICA) 7-26 Oral, BID, ity o f capsule 300 [...] ity of 2,000 mg in 03:30: Piggyback, [place] NaCl 0.9% 00 Q12H ABX, Medic al (NS) 50 mL First dose [facility] piggyback on Wed02/16/22 at 2230, Until Discontinu [...] SolR hours. Branch 2,000 mg NaCl 0.9% Yes 2000mg Infuse Univ ers (NS) SolP 02-17 2,000 mg ity of 50 mL with 00:00: every 12 Compa as ceFEPIme 1 00 (twelve) Medic al gram SolR hours. Branch 2,000 mg NaCl 0.9% 0 2021- No 2000mg Infuse Uni vers (NS) SolP 02-17 08-05 2,000 mg ity o f 50 mL with 00:00: 00:00 every 12 [place] ceFEPIme 1 00 :00 (twelve) Medic al gram SolR hours. Branch 2,000 mg Sliding Yes Subcutaneo Univ ers Scale 7-25 us, TID ity of Insulin - 22:00: MEALS+HS, [place] lispro 00 First dose Medical (humaLOG) + (after Branch Fsbg last Testing modificati on) on [facility] 02/16/22 at 1700, Until Discontinu ed, Routine ceFEPIme No 2000mg 2,000 mg, U nivers (MAXIPIME) 02-16 IV ity of 2,000 mg in 15:30: 15:30 [place], [place] NaCl 0.9% 00 :00 ONCE, 1 Medical (NS) 50 mL dose, On Branc h piggyback [facility] 02/16/22 at 1030, Administer over 30 Minutes, 50 mL
Reas on for Anti-Infec tive: Documented Infection< br>Documen alden Infection Site: Respirator y
Du ration of Therapy: 7 days lidocaine 2021- No 5mL 5 mL, Univer s 1% (PF) 02-16 Subcutaneo ity o f (XYLOCAINE) 14:45: 22:45 , ONCE, [place] injection 5 00 :00 1 dose, On Me dical mL [facility] 02/16/22 at 0945, Routine NaCl 0.9% Yes 10mL 10 mL, Univer s (NS) 02-16 Slow IV ity of injection 14:36: Push, PRN, [place] 10 mL 37 Starting Medical on [facility] 02/16/22 at 0936, Until Discontinu ed, Routine, line maintenanc e furosemide No 40mg 40 mg, Univ ers (LASIX) 02-16 07 Oral, BID, ity o f tablet 40 01:00: 12:21 First dose [place] mg 00 :21 on [facility] 02/15/22 at Branch 2000, Until Discontinu ed, Routine insulin Yes 24U 24 Units, Unive rs glargine 24 Subcutaneo ity o f (LANTUS 16:53: us, Q24H, [place] U-100) 00 First dose Medical injection (after Branch 24 Units last modificati on) on [place] 02/15/22 at 1153, Until Discontinu ed, Routine insulin Yes 5U 5 Units, Univer s lispro 02-14 Subcutaneo ity of (human) 22:00: us, TID [place] (HumaLOG 00 MEALS, Medical U-100) First dose Branch injection 5 on Sat Units 02/14/22 at 1700, Until Discontinu ed, Routine Sliding Subcutaneo Uni vers Scale 02-14 us, Q4H, [...] Discontinu ed, Routine, Pain (scale 4-6) HYDROcodone 0 202- No 1{tbl} 1 tablet, Univers -acetaminop 02-13 Oral, ity of hen (NORCO 19:35: 20:51 Q6HPRN, Compa as 5) 5-325 mg 55 :36 Starting Medi michel tablet 1 on Wed Branch tablet 02/13/22 at 1435, Until Wed02/13/22 at 1551, Routine, Pain (scale 4-6) D10W 10 % 2021- No at 30 Univer s IV infusion 02-13 mL/hr, IV it y of 17:55: 22:35 Infusion, [place] 58 :45 TITRATE, Medical Starting Branch on Wed02/13/22 at 1255, Until Wed02/13/22 at 1735, Routine Sliding 2021- No Subcutaneo Uni vers Scale 02-13 07-23 us, Q4H, ity of Insulin - 17:00: 17:59 First dose [place] lispro 00 :02 on Wed Medical (humaLOG) + 02/13/22 at Br anch Fsbg 1200, Testing Until Discontinu ed, Routine metoprolol Yes 25mg 25 mg, Unive rs succinate 02-13 Oral, ity of XL (TOPROL 14:00: DAILY, [place] XL) tablet 00 First dose Med ical [...] 650 52 Starting Medic al mg on Fri Branch 02/13/22 at 0654, Until Discontinu ed, [...] First dose [place] mg 00 on [facility] 02/12/22 at Branch 2100, Until Discontinu ed, Routine rosuvastati Yes 10mg 10 mg, Univ ers n (CRESTOR) 02-13 Oral, QHS, it y of tablet 10 02:00: First dose [place] mg 00 on [facility] 02/12/22 at Branch 2100, Until Discontinu ed, Routine pregabalin 2021- No 300mg 300 mg, Un alexia (LYRICA) 02-13 Oral, QHS, ity of capsule 300 02:00: 13:54 First dose [place] mg 00 :07 on [facility] 02/12/22 at Branch 2100, Until Discontinu ed, Routine furosemide 2021- No 20mg 20 mg, Univ ers (LASIX) 02-13 07 Slow IV ity of injection 01:00: 19:35 Push, [place] 20 mg 00 :20 Q12H, Medical First dose Branch on [facility] 02/12/22 at 2000, Until Discontinu ed, Routine piperacilli 2021- No 3.375g 3.375 g, Univers n-tazobacta 02-12 IV ity of m (ZOSYN) 23:30: 19:31 Piggyback, [place] 3.375 g in 00 :45 Q8H ABX, Medic al NaCl 0.9% First dose Bran ch (NS) 50 mL on [facility] MINI-BAG 02/12/22 at 1830, Until Discontinu ed, [...] IV Push, ity of (PF)) 21:36: Q6HPRN, [place] injection 4 19 Nausea and Me dical mg Vomiting Branch (N/V), Starting on [place] 02/12/22 at 1636
Do ses of ondansetro n 16 mg and above need to be administer ed via IV piggyback. For Dose >=24mg ECG monitoring is advisable.
ipratropium Yes 3mL 3 mL, Unive rs -albuteroL 02-12 Inhalation ity of (DUONEB) 19:00: , Q6H, [place] 0.5 mg-3 00 First dose Medic al mg(2.5 mg on [place] Branch base)/3 mL 02/12/22 at nebulizer 1400, solution 3 Until mL Discontinu ed, Routine piperacilli 2021- No 3.375g 3.375 g, Univers n-tazobacta 02-12 IV ity of m (ZOSYN) 15:30: 17:12 Piggyback, [place] 3.375 g in 00 :00 ONCE, 1 Medica l NaCl 0.9% dose, On Branch (NS) 50 mL [facility] MINI-BAG 02/12/22 at 1030, Administer over [...] of 1,000 mg in 09:15: 14:35 Piggyback, [place] NaCl 0.9% 00 :41 Q24H ABX, Medic al (NS) 50 mL First dose [facility] MINI-BAG on [place] 02/12/22 at 0415, Until Discontinu ed, Administer over 30 Minutes, 50 mL
Reas on for Anti-Infec tive: Documented Infection< br>Documen alden Infection Site: Respirator y
Durat ion of Therapy: 7 days albuterol Yes 2.5mg 2.5 mg, [facility] ers (PROVENTIL) 02-12 Inhalation it y of 2.5 mg /3 08:45: , Q4HPRN, Compa as mL (0.083 01 Starting Medica l %) on [facility] Branch nebulizer 02/12/22 at solution 0345, 2.5 mg Until Discontinu ed, Routine, Shortness of Breath, Wheezing NaCl 0.45% 2021- No 1000mL Univ ers (1/2NS) 02-12 ity of 1000 mL + 08:15: 22:29 [place] KCL 20 mEq 00 :[address] [facility] Branch azithromyci 2021- No 500mg 500 mg, [...] IV ity of human 03:15: 04:13 Push, [place] (HUMULIN R) 00 :00 ONCE, 1 Medic al injection dose, On Branch 10 Units [facility] 02/11/22 at 2215, STAT iopamidol 2021- No [id number] 60mL 60 mL, Univers (ISOVUE 02-12 Intravenou ity o f 370-500 mL) 02:30: 02:30 s, ONCE, 1 [place] injection 00 :00 dose, On Medica l 60 mL [facility] Branch 02/11/22 at 2145, Routine predniSONE Yes [id number] 50mg Take 1 Univers 50 mg 7-10 00 tablet by ity of tablet 00:00: mouth [place] 00 daily. Medical Branch aspirin 81 Yes [id number] 81mg Take 1 Univers mg chewable 7-10 00 tablet by ity of tablet 00:00: mouth [place] 00 daily with Medical breakfast. Branch predniSONE 2021-0 Yes [id number] 50mg Take 1 Univers 50 mg 7-10 00 tablet by ity of tablet 00:00: mouth [place] 00 daily. Medical Branch aspirin 81 2021-0 Yes [id number] 81mg Take 1 Univers mg chewable 7-10 00 tablet by ity of tablet 00:00: mouth [place] 00 daily with Medical breakfast. Branch aspirin 81 2021-0 Yes [id number] 81mg Take 1 Univers mg chewable 7-10 00 tablet by ity of tablet 00:00: mouth [place] 00 daily with Medical breakfast. Branch aspirin 81 2021-0 Yes [id number] 81mg Take 1 Univers mg chewable 7-10 00 tablet by ity of tablet 00:00: mouth [place] 00 daily with Medical breakfast. Branch aspirin 81 2021-0 Yes [id number] 81mg Take 1 Univers mg chewable 7-10 00 tablet by ity of tablet 00:00: mouth [place] 00 daily with Medical breakfast. Branch aspirin 81 2021-0 Yes [id number] 81mg Take 1 Univers mg chewable 7-10 00 tablet by ity of tablet 00:00: mouth [place] 00 daily with Medical breakfast. Branch aspirin 81 2021-0 Yes [id number] 81mg Take 1 Univers mg chewable 7-10 00 tablet by ity of tablet 00:00: mouth [place] 00 daily with Medical breakfast. Branch aspirin 81 2021-0 Yes [id number] 81mg Take 1 Univers mg chewable 7-10 00 tablet by ity of tablet 00:00: mouth [place] 00 daily with Medical breakfast. Branch aspirin 81 2021-0 Yes [id number] 81mg Take 1 Univers mg chewable 7-10 00 tablet by ity of tablet 00:00: mouth [place] 00 daily with Medical breakfast. Branch aspirin 81 2021-0 Yes [id number] 81mg Take 1 Univers mg chewable 7-10 00 tablet by ity of tablet 00:00: mouth [place] 00 daily with Medical breakfast. Branch aspirin 81 2021-0 Yes [id number] 81mg Take 1 Univers mg chewable 7-10 00 tablet by ity of tablet 00:00: mouth [place] 00 daily with Medical breakfast. Branch aspirin 81 2021-0 Yes [id number] 81mg Take 1 Univers mg chewable - 00 tablet by ity of tablet 00:00: mouth [place] 00 daily with Medical breakfast. Branch aspirin 81 0 Yes [id number] 81mg Take 1 Univers mg chewable - 00 tablet by ity of tablet 00:00: mouth [place] 00 daily with Medical breakfast. Branch predniSONE 2021- No [id number] 50mg Take 1 Univers 50 mg 7-02-17 tablet by ity of tablet 00:00: 00:00 mouth [place] 00 :00 daily. Medical Branch aspirin 81 2021- No [id number] 81mg Take 1 Univers mg chewable 7-01-31 tablet by it y of tablet 00:00: 00:00 mouth [place] 00 :00 daily with Medical breakfast. Branch predniSONE 2021- No [id number] 50mg Take 1 Univers 50 mg -01-31 [...] dose on 02/02/22 at 0900, Routine HYDROcodone 0 Yes 1{tbl} Take 1 Un [...] 0 Yes 1{ampul 1 Ampule Univers -albuterol 01-31 e} every 4 ity of 0.5 mg-3 13:56: (four) [place] mg(2.5 mg 12 hours as Medica l base)/3 mL needed for Bra nch nebulizer Wheezing. solution semaglutide Yes inject Univ ers (OZEMPIC) 7-09 under [...] for Bra nch nebulizer Wheezing. solution semaglutide Yes inject Univ ers (OZEMPIC) 7-09 under [...] breakfast. Branch Potassium 2021- No Take by [facility] ers Gluconate 01-31 mouth ity of 595 mg (99 11:48: 00:00 weekly. Compa as mg) Tab 08 :00 Medical Branch spironolact 2021- No 25mg Take 25 mg Univers one 25 mg 01-31 by mouth 2 ity of tablet 11:48: 00:00 (two) [place] 08 :00 times Medical daily. Branch LORazepam 2021- No .5mg 0.5 mg, [facility] ers (ATIVAN) 01-31 Oral, ity of tablet 0.5 02:45: 01:48 ONCE, 1 Compa as mg 00 :00 dose, On Medical Wed01/30/22 Branch at 2145, Routine furosemide Yes 40mg 40 mg, [facility] ([facility] 01-31 Oral, BID, ity of tablet 40 01:00: First dose [place] mg 00 on Wed Medical 01/30/22 at Branch 2000, Until Discontinu ed, Routine metoprolol Yes [id number] 25mg Take 1 Univers succinate 01-31 tablet by ity o f XL 25 mg 24 00:00: mouth 2 Compa as hr tablet 00 (two) Medical times [place] daily. metoprolol Yes [id number] 25mg Take 1 Univers succinate 01-31 tablet by ity o f XL 25 mg 24 00:00: mouth 2 Compa as hr tablet 00 (two) Medical times Branch daily. metoprolol Yes [id number] 25mg Take 1 Univers succinate 01-31 tablet by ity o f XL 25 mg 24 00:00: mouth 2 Compa as hr tablet 00 (two) Medical times Branch daily. metoprolol Yes [id number] 25mg Take 1 Univers succinate 01-31 tablet by ity o f XL 25 mg 24 00:00: mouth 2 Compa as hr tablet 00 (two) Medical times [place] daily. furosemide 2021- No [id number] 40mg Take 1 Univers 40 mg 01-31 tablet by ity of tablet 00:00: 04:59 mouth 2 [place] 00 :00 (two) Medical times Branch daily for 30 days. furosemide 2021- No [id number] 40mg Take 1 Univers 40 mg 01-31 tablet by ity of tablet 00:00: 04:59 mouth 2 [place] 00 :00 (two) Medical times Branch daily for 30 days. metoprolol 2021- No [id number] 25mg Take 1 Univers succinate 01-31 tablet by ity of XL 25 mg 24 00:00: 00:00 mouth 2 [place] hr tablet 00 :00 (two) Medical times Branch daily. furosemide 2021- No [id number] 40mg Take 1 Univers 40 mg 01-31 tablet by ity of tablet 00:00: 00:00 mouth 2 [place] 00 :00 (two) Medical times Branch daily for 30 days. metoprolol 2021- No [id number] 25mg Take 1 Univers succinate 01-31 tablet by ity of XL 25 mg 24 00:00: 00:00 mouth 2 [place] hr tablet 00 :00 (two) Medical times Branch daily for 30 days. acetaminoph Yes 650mg 650 mg, Un alexia en 01-30 Oral, ity of (TYLENOL) 19:27: Q6HPRN, [place] tablet 650 59 Starting Medic al mg on Fri Branch 01/30/22 at 1427, Until Discontinu ed, Routine, Pain (scale 1-3), Temp > 38.5 C methylPREDN 2021- No 40mg 40 mg, Uni vers ISolone sod 01-29 Intravenou i ty of succ 14:00: 18:37 s, DAILY, [place] (SOLU-MEDRO 00 :50 First dose Me dical L (PF)) on [place] Branch injection 01/29/22 at 40 mg 0900, Until Discontinu ed, 1 mL ceFEPIme 2021- No 2000mg 2,000 mg, U nivers (MAXIPIME) 01-29 IV ity of 2,000 mg in 07:15: 22:11 Piggyback, [place] NaCl 0.9% 00 :39 Q8H ABX, Medica l (NS) 50 mL First dose [facility] MINI-BAG on [place] 01/29/22 at 0215, Until [...] at 2000, Until Discontinu ed, Routine ceFEPIme 202- No 2000mg 2,000 mg, U nivers (MAXIPIME) 01-28 IV ity of 2,000 mg in 23:45: 01:18 [place], [place] NaCl 0.9% 00 :00 ONCE, 1 Medical (NS) 50 mL dose, On Branc h MINI-BAG 01/28/22 at 1845, Administer over 30 Minutes, 50 mL
[place] for Anti-Infec tive: Documented Infection< br>Documen alden Infection Site: Respirator y
Du ration of Therapy: 7 days propofoL IV Yes 5ug/kg/ 5-50 Uni vers infusion - min mcg/kg/min ity o f 22:46: ?112.5 kg [place] 21 (3.375-33. Medical 75 mL/hr, Branch rounded to 3.38-33.75 mL/hr), IV Infusion, TITRATE, Sedation-R ASS score (0 to -1), Starting on 01/28/22 at 1746
In itiate infusion at 5 [...] Routine LORazepam 2021- No .5mg 0.5 mg, [facility] ers (ATIVAN) 01-28 07 Slow IV ity of injection 20:30: 19:28 [...]
Do Not Refrigerat e.
sulfur 2021- No [id number] 5mL 5 mL, [facility] [place] [facility] hexafluorid 01-28 Intravenou i ty of e microsphr 15:45: 15:45 s, ONCE, 1 [place] (LUMASON) 00 :00 dose, On Medica l injection 5 Wed01/28/22 Br anch mL at 1045, Routine
science faculty member approving Restricted medication : STELLA IVORY enoxaparin Yes 40mg 40 mg, [facility] rs (LOVENOX) 01-28 Subcutaneo ity of injection 14:00: [place], DAILY, [place] 40 mg 00 First dose Medical on Wed01/28/22 at 0900, Until Discontinu ed, Routine PARoxetine 2022-0 Yes 40mg 40 mg, Unive rs (PAXIL) 01-28 Oral, ity of tablet 40 14:00: DAILY, [place] mg 00 First dose Medical on Wed Branch 01/28/22 at 0900, Until Discontinu ed, Routine insulin 0 Yes 60U 60 Units, Unive rs glargine 01-28 Subcutaneo ity o f (LANTUS 14:00: us, DAILY, [place] U-100) 00 First dose Medical injection on Wed Branch 60 Units 01/28/22 at 0900, Until Discontinu ed, Routine magnesium 0 Yes 400mg 400 mg, Univ ers oxide 01-28 Oral, BID, ity of (MAG-OX 13:00: First dose [place] 400) tablet 00 on Wed Medica l 400 mg 01/28/22 at Branch 0800, Until Discontinu ed, Routine Sliding 0 Yes Subcutaneo Univ ers Scale 7 us, TIDAC, ity of Insulin-Reg 12:30: First [...] at 0215, Until Discontinu ed, Routine sennosides 0 Yes 8.6mg 8.6 mg, Uni vers (SENOKOT) 7- Oral, BID, ity of tablet 8.6 07:15: First dose [place] mg 00 on Wed Medical 01/28/22 at Branch 0215, Until Discontinu ed, Routine docusate 2021-0 Yes 100mg 100 mg, Unive rs (COLACE) 01-28 Oral, BID, ity o f capsule 100 07:15: First dose [place] mg [address] [facility] 01/28/22 at Branch 0215, Until Discontinu ed, Routine pregabalin 2021-0 Yes 200mg 200 mg, Uni vers (LYRICA) 01-28 Oral, BID, ity o f capsule 200 07:15: First dose [place] mg [address] [facility] 01/28/22 at Branch 0215, Until Discontinu ed, Routine ondansetron 2021-0 Yes 4mg 4 mg, Slow Univers (ZOFRAN 01-28 IV Push, ity of (PF)) 07:04: Q6HPRN, [place] injection 4 34 Starting Medi michel mg on Wed [place] 01/28/22 at 0204, Until Discontinu ed, Routine, Nausea and Vomiting (N/V) glucagon 2021-0 Yes 1mg 1 mg, Univers (GLUCAGEN 01-28 Intramuscu ity of DIAGNOSTIC 07:03: lar, PRN, [place] KIT) 14 Starting Medical injection 1 on Wed [facility] 01/28/22 at 0203, Until Discontinu ed, CT, [...] s mg 47 Starting Medical on Wed [place] 01/28/22 at 0201, Until Discontinu ed, Routine, Anxiety famotidine 2021-0 Yes 20mg 20 mg, Unive rs (PEPCID AC) 01-28 Oral, BID, it y of tablet 20 07:00: First dose [place] mg [address] [facility] 01/28/22 at Branch 0200, Until Discontinu ed, Routine QUEtiapine 2021-0 Yes 100mg 100 mg, Uni vers (SEROQUEL) 7- Oral, QHS, ity of tablet 100 07:00: First dose [place] mg 00 on Wed Medical 01/28/22 at Branch 0200, Until Discontinu ed, Routine metoprolol 2021-0 Yes 25mg 25 mg, [facility] rs succinate 01-28 Oral, BID, ity of XL (TOPROL 07:00: First dose [place] XL) tablet 00 on Wed Medical 25 mg 01/28/22 at Branch 0200, Until Discontinu ed, Routine ipratropium 2021-0 202- No 3mL 3 mL, [facility] ers -albuteroL 01-28 07-06 Inhalation it y of (DUONEB) 07:00: 20:55 , QID, [place] 0.5 mg-3 00 :07 First dose Medic al mg(2.5 mg on Wed [place] base)/3 mL 01/28/22 at nebulizer 0200, solution 3 Until mL Discontinu ed, Routine cyclobenzap Yes 10mg 10 mg, [facility] ers rine 01-28 Oral, ity of (FLEXERIL) [...] ed, Routine, Pain (scale 4-6) furosemide 2021-0 2022- No 40mg 40 mg, IV U nivers (LASIX) 01-28- Push, ity of injection 03:15: 03:17 ONCE, 1 [place] 40 mg 00 :00 dose, On Medical 01/27/22 Branch at 2215, CT morpHINE (4 2021-0 202- No 4mg 4 mg, Slow Univers mg/mL) 01-28 07-06 IV Push, ity of injection 4 02:30: 02:25 ONCE, 1 [place] mg 00 :00 dose, On Medical Wed01/27/22 Branch at 2130, STAT ondansetron 2021-0 2022- No 4mg 4 mg, Slow Univers (ZOFRAN 01-28 07- IV Push, ity of (PF)) 02:30: 02:23 ONCE, 1 [place] injection 4 00 :00 dose, On Medi michel mg Wed01/27/22 Branch at 2130, CT HYDROcodone 0 Yes 1{tbl} Take 1 Un [...] as Medica l base)/3 mL needed for [facility] nebulizer Wheezing. solution spironolact 0 Yes 25mg Take 25 mg Univers one 25 mg 7-05 by mouth 2 ity of tablet 23:08: (two) [place] 39 times Medical daily. Branch semaglutide Yes inject Univ ers (OZEMPIC) 7-05 under the ity o f 0.25 mg or 23:08: skin. [place] 0.5 mg(2 39 Medical mg/1.5 mL) Branch PnIj dulaglutide 0 Yes Trulicity U nivers (TRULICITY) 7-05 3 mg/0.5 ity of 3 mg/0.5 mL 23:08: mL [place] PnIj 39 subcutaneo Medical pen Branch injector metFORMIN 0 Yes 750mg Take 750 Uni vers 500 mg 24 7-05 mg by ity of hr tablet 23:08: mouth [place] 39 daily with Medical breakfast. Branch ALPRAZolam No 1mg 1 mg, Unive rs (XANAX) 01-13 Oral, ity of tablet 1 mg 02:45: 01:35 ONCE, 1 [place] 00 :00 dose, On Medical [facility] Branch 01/12/22 at 2145, CT HYDROcodone 2021- No 1{tbl} 1 tablet, Univers -acetaminop 01-13 Oral, ONCE i ty of hen (NORCO) 02:00: 01:08 NOW, 1 [place] as 10-325 mg 00 :00 dose, On Medica l tablet 1 Mon [place] tablet 01/12/22 at 2100, Routine ibuprofen No 600mg 600 mg, Uni vers (IBU) 01-13 Oral, ity of tablet 600 00:15: 23:14 ONCE, 1 [place] mg 00 :00 dose, On Medical [facility] 01/12/22 at 1915, CT cyclobenzap Yes 10mg Take 10 mg Univers rine 5 mg 6-20 by mouth 3 ity of tablet 14:06: (three) [place] 48 times Medical daily. Branch LORazepam Yes .5mg Take 0.5 Univ ers 0.5 mg 6-20 mg by ity of tablet 14:06: mouth 2 [place] 48 (two) Medical times [place] daily as needed. Potassium Yes Take by Unive rs Gluconate 6-20 mouth ity of 595 mg (99 14:06: weekly. [place] mg) Tab 48 Medical Branch ipratropium 0 Yes 1{ampul 1 Ampule Univers -albuterol 6-20 e} every 4 ity of 0.5 mg-3 14:06: (four) [place] mg(2.5 mg 48 hours as Medica l base)/3 mL needed for [facility] nebulizer Wheezing. solution spironolact 0 Yes 25mg [...] Medica l base)/3 mL needed for [facility] nebulizer Wheezing. solution spironolact Yes 25mg Take [...] as Medica l base)/3 mL needed for [facility] nebulizer Wheezing. solution spironolact Yes 25mg Take [...] 8 Medical (eight) Branch hours as needed. ALPRAZolam Yes [id number] .5mg Take 1 Univers 0.5 mg 6-20 tablet by ity of tablet 00:00: mouth 3 [place] 00 (three) Medical times Branch daily. ALPRAZolam Yes [id number] .5mg Take 1 Univers 0.5 mg 6-20 tablet by ity of tablet 00:00: mouth 3 [place] 00 (three) Medical times Branch daily. ALPRAZolam Yes [id number] .5mg Take 1 Univers 0.5 mg 6-20 tablet by ity of tablet 00:00: mouth 3 [place] 00 (three) Medical times Branch daily. ALPRAZolam Yes [id number] .5mg Take 1 Univers 0.5 mg 6-20 tablet by ity of tablet 00:00: mouth 3 [place] 00 (three) Medical times Branch daily. ALPRAZolam 2021- No [id number] .5mg Take 1 Univers 0.5 mg 6-20 07-09 tablet by ity of tablet 00:00: 00:00 mouth 3 [place] 00 :00 (three) Medical times Branch daily. ALPRAZolam Yes .5mg 0.5 mg, Univ ers (XANAX) 01-11 Oral, TID, ity of tablet 0.5 01:30: First dose [place] mg 00 (after Medical last Branch modificati on) on [facility] 01/10/22 at 2030, Until Discontinu ed, Routine ALPRAZolam 2021- No .5mg 0.5 mg, Uni vers (XANAX) 01-10 06-19 Oral, TID, ity o f tablet 0.5 21:30: 01:15 First dose [place] mg 00 :25 on [facility] Medical 01/10/22 at Branch 1630, Until Discontinu ed, Routine acetaminoph Yes 650mg 650 mg, Un alexia en 01-09 Oral, ity of (TYLENOL) 22:42: Q6HPRN, [place] tablet 650 06 Starting Medic al mg on Wed Branch 01/09/22 at 1742, Until Discontinu ed, Routine, Pain (scale 1-3), Pain (scale 4-6) FENTanyl PF 2021- No 50ug 50 mcg, Un alexia (SUBLIMAZE 01-0917 Slow IV ity o f (PF)) 14:15: 18:52 Push, [place] injection 00 :00 ONCE, 1 Medical 50 mcg dose, On Branch Wed01/09/22 at 0915, Routine propofoL IV Yes 5ug/kg/ 5-50 Uni vers infusion 01-09 min mcg/kg/min ity o f 14:02: ?104.3 kg [place] 51 (3.129-31. Medical 29 mL/hr, Branch rounded to 3.13-31.29 mL/hr), IV Infusion, at 3.13-31.29 mL/hr, TITRATE, Starting on Wed01/09/22 at 0902, Until Discontinu ed, Sedation-R ASS score (-2 to -3), Routine QUEtiapine Yes 50mg 50 mg, Unive rs (SEROQUEL) 01-09 Oral, BID, ity of tablet 50 01:00: First dose [place] mg 00 (after Medical last Branch modificati on) on [place] 01/08/22 at 2000, Until Discontinu ed, Routine QUEtiapine 2021- No 25mg 25 mg, Univ ers (SEROQUEL) 01-0816 Oral, ity of tablet 25 13:54: 14:00 ONCE, 1 [place] mg 00 :00 dose, On Medical [place] Branch 01/08/22 at 0900, Routine acetylcyste Yes 4mL 800 mg (4 U nivers ine 6-15 mL), ity of (MUCOMYST) 23:00: Inhalation [place] 200 mg/mL 00 , Q6H, Medical (20 %) First dose Branch solution on Wed 800 mg 01/07/22 at 1800, Until Discontinu ed, Routine FENTanyl PF 2022021- No 100ug 100 mcg, Univers (SUBLIMAZE 01-07 Slow IV ity o f (PF)) 20:15: [...] mcg/kg/min ity o f 21:35: ?104.3 kg [place] 37 (3.129-31. Medical 29 mL/hr, Branch rounded [...] No 40mg 40 mg, Univ ers (LASIX) 01-06-15 Slow IV ity of injection 20:45: 15:02 Push, [place] 40 mg 00 :09 DAILY, Medical First dose Branch on Wed01/06/22 at 1545, Until Discontinu ed, Routine ceFEPIme 2021- No 1000mg 1,000 mg, U nivers (MAXIPIME) 01-06 06-15 IV ity of 1,000 mg in 19:00: 22:16 Piggyback, [place] NaCl 0.9% 00 :00 Q8H ABX, 4 [...] 01-06 Oral, ity of sodium 18:45: DAILY, [place] (SENOKOT-S) 00 First dose Me dical 8.6-50 [...] mcg/kg/min ity of 01:12: 18:02 ?104.3 kg [place] 34 :29 (3.129-31. Medical 29 mL/hr, Branch [...] Yes 40mg 40 mg, Univ ers e 14 Slow IV ity of (PROTONIX) 01:00: Push, [place] injection 00 Q12H, Medical 40 mg First dose Branch on 01/05/22 at 2000, Until Discontinu ed morpHINE (2 Yes 2mg 2 mg, Slow Univers mg/mL) 01-05 IV Push, ity of injection 2 19:16: Q6HPRN, [place] mg 47 Starting Medical on Mon Branch 01/05/22 at 1416, Until Discontinu ed, Routine, Pain (scale 7-10) potassium 2021- No 20meq 20 mEq, IV Univers chloride 20 01-04 Piggyback, i ty of mEq/100 mL 15:00: 18:20 Q2H, 2 [place] (KCL) 20 00 :00 doses, Medical mEq/100 mL First dose [facility] RTU IVPB 20 on [place] mEq 01/04/22 at 1000, Last dose on [place] 01/04/22 at 1200, 100 mL insulin 2021- No 10U 10 Units, [facility] ers glargine 01-04 Subcutaneo ity of (LANTUS 14:00: 15:09 us, DAILY, [place] U-100) 00 :45 First dose Medical injection (after Branch 10 Units last modificati on) on [place] 01/04/22 at 0900, Until Discontinu ed, Routine metoprolol 2021- No 5mg 5 mg, Slow Univers (LOPRESSOR) 01-04 IV Push, ity of injection 5 13:45: 17:13 BID, First [place] mg 00 :45 dose on Medical [place] Branch 01/04/22 at 0845, Until Discontinu ed, Routine QUEtiapine 2021- No 25mg 25 mg, [facility] ers (SEROQUEL) 01-0416 Oral, BID, it y of tablet 25 13:45: 13:55 First dose [place] mg 00 :32 (after Medical last Branch modificati on) on [place] 01/04/22 at 0845, Until Discontinu ed, Routine iopamidol 2021- No [id number] 100mL 100 mL, Univers (ISOVUE 01-04 Intravenou ity o f 370-500 mL) 10:15: 08:55 s, ONCE, 1 [place] injection 00 :00 dose, On Medica l 100 mL [place] Branch 01/04/22 at 0515, Routine propofoL IV 2021- No 5ug/kg/ 5-50 Un alexia infusion 01-03 min mcg/kg/min ity of 21:04: 21:03 ?104.3 kg [place] 20 :20 (3.129-31. Medical 29 mL/hr, Branch [...] No 10U 10 Units, Univ ers glargine 01-0311 Subcutaneo ity of (LANTUS 19:37: 21:33 us, ONCE, [place] U-100) 00 :00 1 dose, On Medical injection Sat Branch 10 Units 01/03/22 at 1445, Routine furosemide 2021- No 40mg 40 mg, [...] Dose >=24mg ECG monitoring is advisable.
insulin 2021- No 30U 30 Units, Univ ers glargine [...] Slow IV ity of (PF)) 03:00: Push, [place] injection 00 Q12H, Medical 20 mg First dose Branch on Wed01/02/22 at 2200, Until Discontinu ed, Routine propofoL IV 2021- No 5ug/kg/ 5-50 Un alexia infusion 01-02 06-11 min mcg/kg/min ity of 22:07: 21:04 ?104.3 kg [place] 53 :48 (3.129-31. Medical 29 mL/hr, Branch [...] 2021- No 100ug 100 mcg, Univers (SUBLIMAZE 01-0210 Slow IV ity o f (PF)) 19:24: 19:34 Push, [place] injection 00 :00 ONCE, 1 Medical 100 mcg dose, On Branch Wed01/02/22 at 1430, Routine meropenem 2021- No 1000mg 1,000 mg, Univers (MERREM) 01-02-14 IV ity of 1,000 mg in 19:00: 15:[facility] [place] NaCl 0.9% 00 :06 Q8H ABX, Medica l (NS) 50 mL First dose [facility] MINI-BAG on Wed01/02/22 at 1400, Until Discontinu ed, Administer over 3 Hours, 50 mL
Rest ricted use approved by: [email or web address]
R [place] for Anti-Infec tive: Empiric Therapy for Suspected Infection< br>Empiric Therapy Site: Respirator y
Durat ion of therapy: 72 hours Sliding Yes Subcutaneo Univ ers Scale 6-10 us, Q6H, ity of Insulin-Reg 17:00: First dose [place] ular + Fsbg 00 wed Medica l Testing 01/02/22 at Branch 1200, [...] No 40mg 40 mg, Univ ers (LASIX) 01-02-10 Slow IV ity of injection 15:15: 14:43 [...] ity of bolus 14:10: PRN - SEE [place] infusion 46 INSTRUCTIO Medic al 250 mL [...] Yes 3mL 3 mL, Unive rs -albuteroL 10 Inhalation ity of (DUONEB) 13:00: , Q4H, [place] 0.5 mg-3 00 First dose Medic al [...] Routine insulin 2021- No 20U 20 Units, [facility] ers glargine 01-02 Subcutaneo ity of (LANTUS 13:00: 14:11 us, BID, [place] U-100) 00 :23 First dose Medical injection on Wed Branch 20 Units 01/02/22 at 0800, Until Discontinu ed, Routine albuterol 2021- No 2.5mg 2.5 mg, Uni vers (PROVENTIL) 01-02 Inhalation i ty of 2.5 mg /3 12:30: 01:18 , Q6H, [place] mL (0.083 00 :50 First dose Medi michel %) on Wed Branch nebulizer 01/02/22 at solution 0730, 2.5 mg Until Discontinu ed, Routine acetylcyste 2021- No 4mL 800 mg (4 Univers ine 01-0211 mL), ity of (MUCOMYST) 12:30: 19:38 Inhalation [...] of NS 500 mL 12:00: 14:27 from [place] IV 00 :44 1,564.5 mg Medical Piggyback [...] ity of 1 mEq/mL 11:45: 09:45 Push, [place] (8.4 %) 00 :00 ONCE, 1 Medical injection dose, On Branch 100 mEq Wed01/02/22 at 0645, Routine meropenem 2021- No 1000mg 1,000 mg, Univers (MERREM) 01-02 IV ity of 1,000 mg in 11:15: 12:44 [facility] [place] NaCl 0.9% 00 :00 ONCE, 1 Medical [...] IV 00 :00 dose, On Medical piggyback Fri Branch 80 mg 01/02/22 at 0500, Administer [...] 1 Medical dose, On Branch Wed01/02/22 at 0315, STAT ceFEPIme 2022-0 2022- No 1g 1 g, IV Unive rs (MAXIPIME) 01-02 Piggyback, it y of 1 g in NaCl 06:30: 07:42 ONCE, 1 [place] 0.9% (NS) 00 :00 dose, On Medica l 100 mL [facility] MINI-BAG 01/02/22 at 0130, Administer over 30 Minutes, 100 mL
Reas on for Anti-Infec tive: Empiric Therapy for Suspected Infection< br>Empiric Therapy Site: Respirator y
Durat ion of therapy: 72 hours azithromyci 2021- No 500mg 500 mg, IV Univers n 01-02 Piggyback, ity of (ZITHROMAX) 06:30: 05:42 ONCE, 1 [place] injection 00 :00 dose, On Medica l 500 mg [facility] [place] Branch 01/02/22 at 0130, STAT
Re ason for Anti-Infec tive: Documented Infection< br>Documen alden Infection Site: Respirator y
Durat ion of Therapy: Other (see Comments) ondansetron No 4mg 4 mg, Slow Univers (ZOFRAN 12-09 IV Push, ity of (PF)) 05:45: 04:41 ONCE, 1 [place] injection 4 00 :00 dose, On Medi imchel mg [facility] Branch 12/09/21 at 0045, CT morpHINE (4 No 4mg 4 mg, Slow Univers mg/mL) 12-09 IV Push, ity of injection 4 05:45: 04:41 ONCE, 1 [place] mg 00 :00 dose, On Medical [facility] Branch 12/09/21 at 0045, STAT levalbutero No 1.25mg 1.25 mg, Univers l (XOPENEX) 12-09 Inhalation i ty of nebulizer 05:00: 04:22 , ONCE, 1 [place] solution 00 :00 dose, On Medical 1.25 mg [facility] Branch 12/09/21 at 0000, Routine predniSONE 2021- No [id number] 40mg Take 2 Univers 20 mg 3- 03-06 tablets by ity of tablet 00:00: 05:59 mouth [place] 00 :00 daily for Medical 3 days. Branch predniSONE 0 2021- No [id number] 40mg Take 2 Univers 20 mg 3-02 [...] Medica l base)/3 mL needed for [facility] nebulizer Wheezing. solution spironolact Yes 25mg Take [...] as Medica l base)/3 mL needed for [facility] nebulizer Wheezing. solution spironolact Yes 25mg Take [...] 0 Yes 1{ampul 1 Ampule Univers -albuterol 3 e} every 4 ity of 0.5 mg-3 15:03: (four) [place] mg(2.5 mg 49 hours as Medica l base)/3 mL needed for [facility] nebulizer Wheezing. solution spironolact Yes 25mg Take 25 mg Univers one 25 mg 3-01 by mouth 2 ity of tablet 15:03: (two) [place] 49 times Medical daily. Branch semaglutide Yes inject Univ ers (OZEMPIC) 3 under the ity o f 0.25 mg or 15:03: skin. [place] 0.5 mg(2 49 Medical mg/1.5 mL) Branch PnIj dulaglutide Yes Trulicity U nivers (TRULICITY) 3 3 mg/0.5 ity of 3 mg/0.5 mL 15:03: mL [place] PnIj 49 subcutaneo Medical pen Branch injector metFORMIN 2021-0 Yes 750mg Take 750 Uni vers 500 mg 24 3-01 mg by ity of hr tablet 15:03: mouth [place] 49 daily with Medical breakfast. Branch polyethylen 0 Yes 17g 17 g, Unive rs e glycol 3- Oral, BID, ity o f 3350 powder 14:15: First dose [place] 17 g 00 on [facility] 09/23/21 at Branch 0815, Until Discontinu ed, Routine proCHLORper 2021-0 2- No 5mg 5 mg, IV U nivers azine 09-23- Piggyback, ity of (COMPAZINE) 13:00: 12:33 ONCE, 1 [place] 5 mg in 00 :00 dose, On Medical NaCl 0.9% Wed09/23/21 Bran ch (NS) at 0700, piggyback 50 mL ondansetron 2021- No 8mg Take 8 mg Univers 8 mg tablet 09-23 by mouth ity of 12:53: 00:00 every 8 [place] 19 :00 (eight) Medical hours as Branch needed. ondansetron No 4mg 4 mg, Slow Univers (ZOFRAN 09-23 IV Push, ity of (PF)) 10:00: 09:12 ONCE, 1 [place] injection 4 00 :00 dose, On Medi michel mg [facility] 09/23/21 Branch at 0400, Routine ondansetron Yes 4mg 4 mg, Slow Univers (ZOFRAN 09-23 IV Push, ity of (PF)) 04:25: Q6HPRN, [place] injection 4 51 Starting Medi michel mg on Wed Branch 09/22/21 at 2225, Until Discontinu ed, Routine, Nausea and Vomiting (N/V) insulin Yes 60U 60 Units, Unive rs glargine 3 Subcutaneo ity o f (LANTUS 03:00: us, Q, [place] U-100) 00 First dose Medical injection on Wed Branch 60 Units 09/22/21 at 2100, Until Discontinu ed, Routine Sliding 0 Yes Subcutaneo Univ ers Scale 3- us, Q4H, ity of Insulin - 02:45: First dose [place] Lispro 00 (after Medical (HumaLOG) + last Branch Fsbg modificati Testing on) on Wed09/22/21 at 2045, Until Discontinu ed, Routine azithromyci 2021- No [id number] 250mg Take 1 Univers n 09-23 tablet by ity of (ZITHROMAX 00:00: 05:59 mouth [place] Z-ULYSSES) 250 00 :00 daily for Medi michel mg tablet 4 days. Branch azithromyci 2021- No [id number] 250mg Take 1 Univers n 09-23 tablet by ity of (ZITHROMAX 00:00: 05:59 mouth [place] Z-ULYSSES) 250 00 :00 daily for Medi michel mg tablet 4 days. [place] cyclobenzap Yes 5mg 5 mg, Unive rs rine 09-22 Oral, ity of (FLEXERIL) 23:04: TIDPRNKatherine s tablet 5 mg 26 Starting Medi michel on Wed Branch 09/22/21 at 1704, Until Discontinu ed, Routine, Muscle Spasms Sliding 2021- No Subcutaneo Uni vers Scale 09-22 , TID ity of Insulin - 23:00: 02:39 MEALS+HS, [place] Lispro 00 :34 First dose Medical (HumaLOG) + on Wed Branch Fsbg 09/22/21 at Testing 1700, Until Discontinu ed, Routine dextrose Yes 250mL 250 mL, IV Un alexia 10% (D10W) 09-22 Infusion, ity of bolus 20:39: PRN - SEE [place] infusion 11 INSTRUCTIO Medic al 250 mL [...] or has mental changes. sulfur 2021- No [id number] 5mL 5 mL, Univ ers hexafluorid 09-22 Intravenou i ty of e microsphr 18:45: 19:00 s, ONCE, 1 [place] (LUMASON) 00 :00 dose, On Medica l injection 5 [facility] mL 09/22/21 at 1300, Routine
science faculty member approving Restricted medication : MARY GLORIA HYDROcodone Yes 1{tbl} 1 tablet, Univers -acetaminop 09-22 Oral, ity of hen (NORCO) 16:26: Q8HPRN, [place] 10-325 mg 26 Starting Medica l tablet 1 on [facility] tablet 09/22/21 at 1026, Until Discontinu ed, Routine, Pain (scale 4-6), Pain (scale 7-10) furosemide Yes 40mg 40 mg, Unive rs (LASIX) 09-22 Oral, ity of tablet 40 15:00: DAILY, [place] mg 00 First dose Medical on [facility] Branch 09/22/21 at 0900, Until Discontinu ed, [...] of 2.5 mg /3 14:00: , Q4H, [place] mL (0.083 00 First dose Medi michel %) on [facility] nebulizer 09/22/21 at solution 0800, 2.5 mg Until Discontinu ed, Routine heparin Yes 5000U 5,000 Univers (porcine) 09-22 Units, ity of injection 14:00: Subcutaneo [place] 5,000 Units 00 us, Q12H, Med ical First dose Branch on Wed09/22/21 at 0800, Until Discontinu ed, Routine Sliding 2021- No Subcutaneo Uni vers Scale 09-22 02-28 us, AC+HS, ity of Insulin-Reg 13:30: 19:17 First dose [place] ular + Fsbg 00 :[address] [facility] Medica l Testing 09/22/21 at Branch 0730, Until Discontinu ed, Routine nicotine 0 Yes 1{patch 1 Patch, Un alexia (NICODERM) [...] IV ity of (D50W) 11:14: Push, PRN, [place] injection 28 Starting Medica l 25 mL on [facility] 09/22/21 at 0514, Until Discontinu ed, CT, Blood Glucose < or = 70 mg/dL and patient is unable to swallow or has mental status changes. albuterol No 2.5mg 2.5 mg, Uni vers (PROVENTIL) 09-22 Inhalation i ty of 2.5 mg /3 07:45: 07:15 , ONCE, 1 [place] mL (0.083 00 :00 dose, On Medica l %) [facility] nebulizer 09/22/21 at solution 0145, CT 2.5 mg furosemide No 40mg 40 mg, IV U nivers (LASIX) 09-22 Push, ity of injection 07:30: 06:32 ONCE, 1 [place] 40 mg 00 :00 dose, On Medical [facility] 09/22/21 at 0130, CT methylpredn 2021- No 125mg 125 mg, U nivers isolone sod 09-22 Slow IV ity of succ 07:30: 06:31 Push, ONCE [place] (SOLU-MEDRO 00 :00 NOW, 1 Medica l L) dose, On [place] injection Mon 125 mg 09/22/21 at 0130, CT albuterol 2022-0 2022- No 2.5mg 2.5 mg, Uni vers (PROVENTIL) 09-22 Inhalation i ty of 2.5 mg /3 07:30: 06:27 , ONCE, 1 [place] mL (0.083 00 :00 dose, On Medica l %) [facility] nebulizer 09/22/21 at solution 0130, CT 2.5 mg aspirin 2021- No 1{tbl} Take 1 Unive rs (ASPIR-81 09-22 tablet by ity of ORAL) 05:21: 00:00 mouth [place] 25 :[address] [facility] Branch dulaglutide 2020-07 Yes Trulicity U nivers (TRULICITY) 2-29 3 mg/0.5 ity of 3 mg/0.5 mL 14:20: mL [place] PnIj [facility] injector dulaglutide 2020-07 Yes Trulicity U nivers (TRULICITY) 2-29 3 mg/0.5 ity of 3 mg/0.5 mL 14:20: mL [place] PnIj [facility] pen Branch injector LORazepam 2020-07 Yes [id number] .5mg Take 1 Un alexia 0.5 mg 2-02 tablet by ity of tablet 00:00: mouth 3 [place] 00 (three) Medical times [place] daily as needed for Nausea and Vomiting (N/V). LORazepam 2020-07 Yes [id number] .5mg Take 1 Un alexia 0.5 mg 2-02 tablet by ity of tablet 00:00: mouth 3 [place] 00 (three) Medical times [place] daily as needed for Nausea and Vomiting (N/V). LORazepam 2020-07- No [id number] .5mg Take 1 U nivers 0.5 mg 2-02 03-01 tablet by ity of tablet 00:00: 00:00 mouth 3 [place] 00 :00 (three) Medical times [place] daily as needed for Nausea and Vomiting (N/V). spironolact 2018-07 Yes 25mg Take 25 mg [facility] one 25 mg 06 by mouth 2 ity of tablet 08:30: (two) [place] 12 times Medical daily. Branch spironolact 2018-07 Yes 25mg Take 25 mg [facility] one 25 mg 07-31 by mouth 2 ity of tablet 08:30: [...] nch nebulizer Wheezing. solution nystatin 2018-07 Yes [id number] Apply to Un alexia 100,000 1-06 area(s) 2 ity of unit/gram 00:00: (two) [place] cream 00 times Medical daily. Branch nystatin 2018-07 Yes [id number] Apply to Un alexia 100,000 1-06 area(s) 2 ity of unit/gram 00:00: (two) [place] cream 00 times Medical daily. Branch nystatin 2018-07- No [id number] Apply to U nivers 100,000 1-06 03-01 area(s) 2 ity of unit/gram 00:00: 00:00 (two) [place] cream 00 :00 times Medical daily. Branch rosuvastati 2018-07 Yes TK 1 T PO U nivers n 10 mg 0-28 QD ity of tablet 00:00: [place] [facility] [place] rosuvastati 2018-07 Yes TK 1 T PO U nivers n 10 mg 0-28 QD ity of tablet 00:00: [place] [facility] [place] rosuvastati 2018-07 Yes TK 1 T PO U nivers n 10 mg 0-28 QD ity of tablet 00:00: [facility] rosuvastati 2018-07 Yes TK 1 T PO U nivers n 10 mg 0-28 QD ity of tablet 00:00: [place] [facility] rosuvastati 2019- Yes TK 1 T PO U nivers n 10 mg 0-28 QD ity of tablet 00:00: [place] [facility] rosuvastati 2018-07 Yes TK 1 T PO U nivers n 10 mg 0-28 QD ity of tablet 00:00: [place] [facility] rosuvastati 2018-07 Yes TK 1 T PO U nivers n 10 mg 0-28 QD ity of tablet 00:00: [place] [facility] rosuvastati 2018-07 Yes TK 1 T PO U nivers n 10 mg 0-28 QD ity of tablet 00:00: [place] [facility] rosuvastati 2018-07 Yes TK 1 T PO U nivers n 10 mg 0-28 QD ity of tablet 00:00: [address] rosuvastati 2018-07 Yes TK 1 T PO U nivers n 10 mg 0-28 QD ity of tablet 00:00: [place] [facility] rosuvastati 2018- Yes TK 1 T PO U nivers n 10 mg 0-28 QD ity of tablet 00:00: [place] [facility] rosuvastati 2018-07 Yes TK 1 T PO U nivers n 10 mg 0-28 QD ity of tablet 00:00: [place] [facility] rosuvastati 2018- Yes TK 1 T PO U nivers n 10 mg 0-28 QD ity of tablet 00:00: [place] [facility] rosuvastati 2018- Yes TK 1 T PO U nivers n 10 mg 0-28 QD ity of tablet 00:00: [place] [facility] rosuvastati 2018- Yes TK 1 T PO U nivers n 10 mg 0-28 QD ity of tablet 00:00: [place] [facility] rosuvastati 2018- Yes TK 1 T PO U nivers n 10 mg 0-28 QD ity of tablet 00:00: [address] rosuvastati 2018-07 Yes TK 1 T PO U nivers n 10 mg 0-28 QD ity of tablet 00:00: [address] rosuvastati 2018- Yes TK 1 T PO U nivers n 10 mg 0-28 QD ity of tablet 00:00: [place] 00 Medical Branch rosuvastati 2019- Yes TK 1 T PO U nivers n 10 mg 0-28 QD ity of tablet 00:00: 00 Medical Branch rosuvastati 2018- Yes TK 1 T PO U nivers n 10 mg 0-28 QD ity of tablet 00:00: Medical Branch rosuvastati 2018- Yes TK 1 T PO U nivers n 10 mg 0-28 QD ity of tablet 00:00: Medical Branch rosuvastati 2018- Yes TK 1 T PO U nivers n 10 mg 0-28 QD ity of tablet 00:00: Medical Branch ofloxacin 2018- Yes INSTIL 2 [...] QID [place] solution 00 Medical Branch ofloxacin 2019- Yes INSTIL 2 Univ ers 0.3 % 0-21 GTS IN OS ity of ophthalmic 00:00: QID [place] solution 00 Medical Branch ofloxacin 2019- Yes INSTIL 2 Univ ers 0.3 % 0-21 GTS IN OS ity of ophthalmic 00:00: QID [place] solution 00 Medical Branch ofloxacin 2018- Yes INSTIL 2 Univ ers 0.3 % 0-21 GTS IN OS ity of ophthalmic 00:00: QID [place] solution 00 Medical Branch ofloxacin 2019-2021- No INSTIL 2 Uni vers 0.3 % 0-21 07-09 GTS IN OS ity of ophthalmic 00:00: 00:00 QID [place] solution 00 :00 Medical Branch furosemide 2018-07 Yes Univers 20 mg 0-09 ity of tablet 00:00: [place] 00 Medical Branch furosemide 2018-07 Yes Univers 20 mg 0-09 ity of tablet 00:00: [place] 00 Medical Branch furosemide 2018-07 Yes TK 1 T PO Un alexia 40 mg 0-09 QAM ity of tablet 00:00: [place] 00 Medical Branch furosemide 2018-07 Yes TK 1 T PO Un alexia 40 mg 0-09 QAM ity of tablet 00:00: [place] 00 Medical Branch furosemide 2018-07 Yes Univers 20 mg 0-09 ity of tablet 00:00: [place] 00 Medical Branch furosemide 2018-07 Yes Univers 20 mg 0-09 ity of tablet 00:00: [place] 00 Medical Branch furosemide 2018-07 Yes Univers 20 mg 0-09 ity of tablet 00:00: [place] 00 Medical Branch furosemide 2018-07 Yes Univers 20 mg 0-09 ity of tablet 00:00: [place] [address] Medical Branch furosemide 2018-07 Yes Univers 20 mg 0-09 ity of tablet 00:00: [place] [address] Medical Branch furosemide 2018-07- No Univer s [...] Medical (eight) Branch hours as needed. cyclobenzap 2018- Yes 10mg Take 10 mg Univers rine [...] s mg) Tab 36 Medical Branch ondansetron 2018- Yes 8mg Take 8 mg U nivers 8 mg tablet 8-07 by mouth ity of 13:18: every 8 [place] 36 (eight) Medical hours as Branch needed. semaglutide Yes inject Univ ers (OZEMPIC) 8-07 under the ity o f 0.25 mg or 13:18: skin. [place] 0.5 mg(2 36 Medical mg/1.5 mL) Branch PnIj fluconazole Yes [id number] 100mg Take 1 Univers 100 mg 3-26 tablet by ity of tablet 00:00: mouth [place] 00 daily. Medical Branch fluconazole Yes [id number] 100mg Take 1 Univers 100 mg 3-26 tablet by ity of tablet 00:00: mouth [place] 00 daily. Medical Branch fluconazole Yes [id number] 100mg Take 1 Univers 100 mg 3-26 tablet by ity of tablet 00:00: mouth [place] 00 daily. Medical Branch fluconazole Yes [id number] 100mg Take 1 Univers 100 mg 3-26 tablet by ity of tablet 00:00: mouth [place] 00 daily. Medical Branch fluconazole 2018- Yes [id number] 100mg Take 1 Univers 100 mg 3-26 tablet by ity of tablet 00:00: mouth [place] 00 daily. Medical Branch fluconazole 0 Yes [id number] 100mg Take 1 Univers 100 mg 3-26 tablet by ity of tablet 00:00: mouth [place] 00 daily. Medical Branch fluconazole 2019-0 Yes [id number] 100mg Take 1 Univers 100 mg 3-26 tablet by ity of tablet 00:00: mouth [place] 00 daily. Medical Branch fluconazole 2019-0 Yes [id number] 100mg Take 1 Univers 100 mg 3-26 tablet by ity of tablet 00:00: mouth [place] 00 daily. Medical Branch fluconazole 2019-0 Yes [id number] 100mg Take 1 Univers 100 mg 3-26 tablet by ity of tablet 00:00: mouth [place] 00 daily. Medical Branch fluconazole 2018-0 2021- No [id number] 100mg Take 1 Univers 100 mg 3-26 -09 tablet by ity of tablet 00:00: 00:00 [...] TO U nivers E 1 % 0-11 -01 THE ity of topical 00:00: 00:00 AFFECTED [...] 1 mL 3 Univ ers e, Bulk, 608 (three) ity of Powd 00:00: times [place] 00 daily. Medical Branch Clotrimazol 2017-0 Yes 1mL 1 mL 3 Univ ers e, Bulk, 6 (three) ity of Powd 00:00: times [place] 00 daily. Medical Branch Clotrimazol 2018-0 2023- No 1mL 1 mL 3 Uni vers e, Bulk, 6 01-16 (three) ity of Powd 00:00: 00:00 times [place] 00 :00 daily. Medical Branch HEMOCYTE-PL 0 Yes Univer s US 106 mg 3-02 [...] mg 00:00: [place] Cap Medical Branch HEMOCYTE-PL 0 Yes Univer s US 106 mg 3-02 ity of iron- 1 mg 00:00: [place] Cap Medical Branch HEMOCYTE-PL 0 Yes Univer s US 106 mg 3-02 ity of iron- 1 mg 00:00: [place] [facility] HEMOCYTE-PL 0 Yes Univer s US 106 mg 3-02 ity of iron- 1 mg 00:00: [place] [facility] HEMOCYTE-PL 0 Yes Univer s US 106 mg 3-02 ity of iron- 1 mg 00:00: [place] [facility] HEMOCYTE-PL 0 Yes Univer s US 106 mg 3-02 ity of iron- 1 mg 00:00: [place] [facility] HEMOCYTE-PL 0 Yes Univer s US 106 mg 3-02 ity of iron- 1 mg 00:00: [place] [facility] HEMOCYTE-PL 0 Yes Univer s US 106 mg 3-02 ity of iron- 1 mg 00:00: [place] [facility] HEMOCYTE-PL 0 Yes Univer s US 106 mg 3-02 ity of iron- 1 mg 00:00: [place] [facility] HEMOCYTE-PL 2017-0 Yes Univer s US 106 mg 3-02 ity of iron- 1 mg 00:00: [place] [facility] HEMOCYTE-PL 0 Yes Univer s US 106 mg 3-02 ity of iron- 1 mg 00:00: [place] [facility] Branch paroxetine 2018-0 Yes Univers 40 mg 2-28 ity of tablet 00:00: [place] [facility] paroxetine 2018-0 Yes Univers 40 mg 2-28 ity of tablet 00:00: [place] [facility] paroxetine 0 Yes Univers 40 mg 2-28 ity of tablet 00:00: [place] [facility] paroxetine 2018-0 Yes Univers 40 mg 2-28 ity of tablet 00:00: [place] [facility] paroxetine 2017-0 Yes Univers 40 mg 2-28 ity of tablet 00:00: [place] [address] Medical Branch paroxetine 2018-0 Yes Univers 40 mg 2-28 ity of tablet 00:00: [place] [address] Medical Branch paroxetine 2018-0 Yes Univers 40 mg 2-28 ity of tablet 00:00: [place] [address] Medical Branch paroxetine 2018-0 Yes Univers 40 mg 2-28 ity of tablet 00:00: [place] [address] Medical Branch paroxetine 2018-0 Yes Univers 40 mg 2-28 ity of tablet 00:00: [place] [address] Medical Branch paroxetine 2018-0 Yes Univers 40 mg 2-28 ity of tablet 00:00: [place] [address] Medical Branch paroxetine 2018-0 Yes Univers 40 mg 2-28 ity of tablet 00:00: [address] Branch paroxetine 2018-0 Yes Univers 40 mg 2-28 ity of tablet 00:00: [address] Branch paroxetine 2018-0 Yes Univers 40 mg 2-28 ity of tablet 00:00: [address] Branch paroxetine 2018-0 Yes Univers 40 mg 2-28 ity of tablet 00:00: [address] Branch paroxetine 2018-0 Yes Univers 40 mg 2-28 ity of tablet 00:00: [address] Branch paroxetine 2018-0 Yes Univers 40 mg 2-28 ity of tablet 00:00: [address] Branch paroxetine 2018-0 Yes Univers 40 mg 2-28 ity of tablet 00:00: [address] Branch paroxetine 2018-0 Yes Univers 40 mg 2-28 ity of tablet 00:00: [address] Branch paroxetine 2018-0 Yes Univers 40 mg 2-28 ity of tablet 00:00: [place] [address] Medical Branch paroxetine 2018-0 Yes Univers 40 mg 2-28 ity of tablet 00:00: [place] [address] Medical Branch paroxetine 2018-0 Yes Univers 40 mg 2-28 ity of tablet 00:00: [address] Branch paroxetine 2018-0 Yes Univers 40 mg 2-28 ity of tablet 00:00: [address] LEVEMIR 2018-0 Yes INJECT 5 Univer s FLEXTOUCH 1-09 UNITS SC ity of 100 unit/mL 00:00: QD [place] (3 mL) 00 Medical injection Branch LEVEMIR 2018-0 Yes INJECT 5 Univer s FLEXTOUCH 1-09 UNITS SC ity of 100 unit/mL 00:00: QD [place] (3 mL) Medical injection Branch LEVEMIR 0 [...] as solution 00 :00 times Medical daily. [place] ranitidine Yes TK 1 T PO Un alexia 300 mg 4-18 BID ity of tablet 00:00: [facility] ranitidine Yes TK 1 T PO Un alexia 300 mg 4-18 BID ity of tablet 00:00: [place] [facility] ranitidine Yes TK 1 T PO Un alexia 300 mg 4-18 BID ity of tablet 00:00: Medical Branch ranitidine 2017-0 Yes TK 1 T PO Un alexia 300 mg 4-18 BID ity of tablet 00:00: [place] [facility] ranitidine 2017-0 Yes TK 1 T PO Un alexia 300 mg 4-18 BID ity of tablet 00:00: [place] [facility] ranitidine [address] Yes TK 1 T PO Un alexia 300 mg 4-18 BID ity of tablet 00:00: [place] [facility] ranitidine 2017-0 Yes TK 1 T PO Un alexia 300 mg 4-18 BID ity of tablet 00:00: [place] [facility] ranitidine [address] Yes TK 1 T PO Un alexia 300 mg 4-18 BID ity of tablet 00:00: [place] [facility] ranitidine 2017-0 Yes TK 1 T PO Un alexia 300 mg 4-18 BID ity of tablet 00:00: [place] [facility] ranitidine [address] Yes TK 1 T PO Un alexia 300 mg 4-18 BID ity of tablet 00:00: [place] [facility] ranitidine 2017-0 Yes TK 1 T PO Un alexia 300 mg 4-18 BID ity of tablet 00:00: [place] [facility] ranitidine 2017-0 Yes TK 1 T PO Un alexia 300 mg 4-18 BID ity of tablet 00:00: [place] [facility] ranitidine 2017-0 Yes TK 1 T PO Un alexia 300 mg 4-18 BID ity of tablet 00:00: [place] [facility] ranitidine 2017-0 2022- No TK 1 T PO U nivers 300 mg 4-18 08-05 BID ity of tablet 00:00: 00:00 [place] 00 :00 Medical Branch QUEtiapine 2014-0 Yes 50mg Take [...] mouth [place] 00 daily. Medical Branch paroxetine 2022- No 40mg Take 2 Univ ers (PAXIL) 20 9-03 03-01 Tabs by ity o f mg [...] Immunizations Ordered Filled Immunization Date Status Comments [facility] Immunization Name Name Pneumococcal 2017-06-08 Completed University o f Polysaccharide, 00:00:00 [place] Med ical PPSV23 (PNEUMOVAX) Branch Influenza Virus 2017-06-08 Completed Universit y of Vaccine Quad IM 3+ 00:00:00 [facility] Pneumococcal 2017-06-08 Completed University o f Polysaccharide, 00:00:00 [facility] ical PPSV23 (PNEUMOVAX) Branch Influenza Virus 2017-06-08 Completed Universit y of Vaccine Quad IM 3+ 00:00:00 [facility] Pneumococcal 2017-06-08 Completed University o f Polysaccharide, 00:00:00 [place] [facility] ical PPSV23 (PNEUMOVAX) [place] Influenza Virus 2017-06-08 Completed Universit y of Vaccine Quad IM 3+ 00:00:00 [facility] Pneumococcal 2017-06-08 Completed University o f Polysaccharide, 00:00:00 [place] [facility] ical PPSV23 (PNEUMOVAX) Branch Influenza Virus 2017-06-08 Completed Universit y of Vaccine Quad IM 3+ 00:00:00 [facility] Pneumococcal 2017-06-08 Completed University o f Polysaccharide, 00:00:00 [place] Med ical PPSV23 (PNEUMOVAX) Branch Influenza Virus 2017-06-08 Completed Universit y of Vaccine Quad IM 3+ 00:00:00 [facility] Pneumococcal 2017-06-08 Completed University o f Polysaccharide, 00:00:00 [place] Med ical PPSV23 (PNEUMOVAX) Branch Influenza Virus 2017-06-08 Completed Universit y of Vaccine Quad IM 3+ 00:00:00 [facility] Pneumococcal 2017-06-08 Completed University o f Polysaccharide, 00:00:00 [place] Med ical PPSV23 (PNEUMOVAX) Branch Influenza Virus 2017-06-08 Completed Universit y of Vaccine Quad IM 3+ 00:00:00 [facility] Pneumococcal 2017-06-08 Completed University o f Polysaccharide, 00:00:00 [place] Med ical PPSV23 (PNEUMOVAX) Branch Influenza Virus 2017-06-08 Completed Universit y of Vaccine Quad IM 3+ 00:00:00 [facility] Pneumococcal 2017-06-08 Completed University o f Polysaccharide, 00:00:00 [place] Med ical PPSV23 (PNEUMOVAX) Branch Influenza Virus 2017-06-08 Completed Universit y of Vaccine Quad IM 3+ 00:00:00 [facility] Pneumococcal 2017-06-08 Completed University o f Polysaccharide, 00:00:00 [place] Med ical PPSV23 (PNEUMOVAX) Branch Influenza Virus 2017-06-08 Completed Universit y of Vaccine Quad IM 3+ 00:00:00 [facility] Pneumococcal 2017-06-08 Completed University o f Polysaccharide, 00:00:00 [place] Med ical PPSV23 (PNEUMOVAX) Branch Influenza Virus 2017-06-08 Completed Universit y of Vaccine Quad IM 3+ 00:00:00 [facility] Pneumococcal 2017-06-08 Completed University o f Polysaccharide, 00:00:00 [place] Med ical PPSV23 (PNEUMOVAX) Branch Influenza Virus 2017-06-08 Completed Universit y of Vaccine Quad IM 3+ 00:00:00 [facility] Pneumococcal 2017-06-08 Completed University o f Polysaccharide, 00:00:00 [place] Med ical PPSV23 (PNEUMOVAX) Branch Influenza Virus 2017-06-08 Completed Universit y of Vaccine Quad IM 3+ 00:00:00 [facility] Pneumococcal 2017-06-08 Completed University o f Polysaccharide, 00:00:00 [place] [facility] ical PPSV23 (PNEUMOVAX) Branch Influenza Virus 2017-06-08 Completed Universit y of Vaccine Quad IM 3+ 00:00:00 [facility] Pneumococcal 2017-06-08 Completed University o f Polysaccharide, 00:00:00 [place] Med ical PPSV23 (PNEUMOVAX) Branch Influenza Virus 2017-06-08 Completed Universit y of Vaccine Quad IM 3+ 00:00:00 [facility] Pneumococcal 2017-06-08 Completed University o f Polysaccharide, 00:00:00 [place] Med ical PPSV23 (PNEUMOVAX) Branch Influenza Virus 2017-06-08 Completed Universit y of Vaccine Quad IM 3+ 00:00:00 [facility] Pneumococcal 2017-06-08 Completed University o f Polysaccharide, 00:00:00 [place] Med ical PPSV23 (PNEUMOVAX) Branch Influenza Virus 2017-06-08 Completed Universit y of Vaccine Quad IM 3+ 00:00:00 [facility] Pneumococcal 2017-06-08 Completed University o f Polysaccharide, 00:00:00 [place] Med ical PPSV23 (PNEUMOVAX) Branch Influenza Virus 2017-06-08 Completed Universit y of Vaccine Quad IM 3+ 00:00:00 [facility] Pneumococcal 2017-06-08 Completed University o f Polysaccharide, 00:00:00 [place] Med ical PPSV23 (PNEUMOVAX) Branch Influenza Virus 2017-06-08 Completed Universit y of Vaccine Quad IM 3+ 00:00:00 [facility] Pneumococcal 2017-06-08 Completed University o f Polysaccharide, 00:00:00 [place] Med ical PPSV23 (PNEUMOVAX) Branch Influenza Virus 2017-06-08 Completed Universit y of Vaccine Quad IM 3+ 00:00:00 [facility] Pneumococcal 2017-06-08 Completed University o f Polysaccharide, 00:00:00 [place] Med ical PPSV23 (PNEUMOVAX) Branch Influenza Virus 2017-06-08 Completed Universit y of Vaccine Quad IM 3+ 00:00:00 [facility] Pneumococcal 2017-06-08 Completed University o f Polysaccharide, 00:00:00 [facility] PPSV23 (PNEUMOVAX) [place] Influenza Virus 2017-06-08 Completed Universit y of [...] 2014-07-31 Completed University o f Polysaccharide, 00:00:00 [place] Med ical PPSV23 (PNEUMOVAX) Branch Influenza Virus 2014-07-31 Completed Universit y of Vaccine Quad IM 3+ 00:00:00 [facility] TDAP 2014-07-31 Completed University of 00:00:00 [facility] Pneumococcal 2014-07-31 Completed University o f Polysaccharide, 00:00:00 [place] Med ical PPSV23 (PNEUMOVAX) Branch Influenza Virus 2014-07-31 Completed Universit y of Vaccine Quad IM 3+ 00:00:00 [facility] TDAP 2014-07-31 Completed University of 00:00:00 [facility] Pneumococcal 2014-07-31 Completed University o f Polysaccharide, 00:00:00 [place] Med ical PPSV23 (PNEUMOVAX) Branch Influenza Virus 2014-07-31 Completed Universit y of Vaccine Quad IM 3+ 00:00:00 [facility] TDAP 2014-07-31 Completed University of 00:00:00 [facility] Pneumococcal 2014-07-31 Completed University o f Polysaccharide, 00:00:00 [place] Med ical PPSV23 (PNEUMOVAX) Branch Influenza Virus 2014-07-31 Completed Universit y of Vaccine Quad IM 3+ 00:00:00 [facility] TDAP 2014-07-31 Completed University of 00:00:00 [facility] Pneumococcal 2014-07-31 Completed University o f Polysaccharide, 00:00:00 [place] Med ical PPSV23 (PNEUMOVAX) Branch Influenza Virus 2014-07-31 Completed Universit y of Vaccine Quad IM 3+ 00:00:00 [facility] TDAP 2014-07-31 Completed University of 00:00:00 [facility] Pneumococcal 2014-07-31 Completed University o f Polysaccharide, 00:00:00 [place] Med ical PPSV23 (PNEUMOVAX) Branch Influenza Virus 2014-07-31 Completed Universit y of Vaccine Quad IM 3+ 00:00:00 [facility] TDAP 2014-07-31 Completed University of 00:00:00 [facility] Pneumococcal 2014-07-31 Completed University o f Polysaccharide, 00:00:00 [place] Med ical PPSV23 (PNEUMOVAX) Branch Influenza Virus 2014-07-31 Completed Universit y of Vaccine Quad IM 3+ 00:00:00 [facility] TDAP 2014-07-31 Completed University of 00:00:00 [facility] Pneumococcal 2014-07-31 Completed University o f Polysaccharide, 00:00:00 [place] Med ical PPSV23 (PNEUMOVAX) Branch Influenza Virus 2014-07-31 Completed Universit y of Vaccine Quad IM 3+ 00:00:00 [facility] TDAP 2014-07-31 Completed University of 00:00:00 [facility] Pneumococcal 2014-07-31 Completed University o f Polysaccharide, 00:00:00 [place] Med ical PPSV23 (PNEUMOVAX) Branch Influenza Virus 2014-07-31 Completed Universit y of Vaccine Quad IM 3+ 00:00:00 [facility] TDAP 2014-07-31 Completed University of 00:00:00 [facility] Pneumococcal 2014-07-31 Completed University o f Polysaccharide, 00:00:00 [place] Med ical PPSV23 (PNEUMOVAX) Branch Influenza Virus 2014-07-31 Completed Universit y of Vaccine Quad IM 3+ 00:00:00 [facility] TDAP 2014-07-31 Completed University of 00:00:00 [facility] Pneumococcal 2014-07-31 Completed University o f Polysaccharide, 00:00:00 [place] Med ical PPSV23 (PNEUMOVAX) Branch Influenza Virus 2014-07-31 Completed Universit y of Vaccine Quad IM 3+ 00:00:00 [facility] TDAP 2014-07-31 Completed University of 00:00:00 [facility] Pneumococcal 2014-07-31 Completed University o f Polysaccharide, 00:00:00 [place] Med ical PPSV23 (PNEUMOVAX) Branch Influenza Virus 2014-07-31 Completed Universit y of Vaccine Quad IM 3+ 00:00:00 [facility] TDAP 2014-07-31 Completed University of 00:00:00 [facility] Pneumococcal 2014-07-31 Completed University o f Polysaccharide, 00:00:00 [place] Med ical PPSV23 (PNEUMOVAX) Branch Influenza Virus 2014-07-31 Completed Universit y of Vaccine Quad IM 3+ 00:00:00 [facility] TDAP 2014-07-31 Completed University of 00:00:00 [facility] Pneumococcal 2014-07-31 Completed University o f Polysaccharide, 00:00:00 [place] Med ical PPSV23 (PNEUMOVAX) Branch Influenza Virus 2014-07-31 Completed Universit y of Vaccine Quad IM 3+ 00:00:00 [facility] TDAP 2014-07-31 Completed University of 00:00:00 [facility] Pneumococcal 2014-07-31 Completed University o f Polysaccharide, 00:00:00 [place] Med ical PPSV23 (PNEUMOVAX) Branch Influenza Virus 2014-07-31 Completed Universit y of Vaccine Quad IM 3+ 00:00:00 [facility] TDAP 2014-07-31 Completed University of 00:00:00 [facility] Pneumococcal 2014-07-31 Completed University o f Polysaccharide, 00:00:00 [place] Med ical PPSV23 (PNEUMOVAX) Branch Influenza Virus 2014-07-31 Completed Universit y of Vaccine Quad IM 3+ 00:00:00 [facility] TDAP 2014-07-31 Completed University of 00:00:00 [facility] Pneumococcal 2014-07-31 Completed University o f Polysaccharide, 00:00:00 [place] Med ical PPSV23 (PNEUMOVAX) Branch Influenza Virus 2014-07-31 Completed Universit y of Vaccine Quad IM 3+ 00:00:00 [facility] TDAP 2014-07-31 Completed University of 00:00:00 [facility] Pneumococcal 2014-07-31 Completed University o f Polysaccharide, 00:00:00 [place] Med ical PPSV23 (PNEUMOVAX) Branch Influenza Virus 2014-07-31 Completed Universit y of Vaccine Quad IM 3+ 00:00:00 [facility] TDAP 2014-07-31 Completed University of 00:00:00 [facility] Pneumococcal 2014-07-31 Completed University o f Polysaccharide, 00:00:00 [place] Med ical PPSV23 (PNEUMOVAX) Branch Influenza Virus 2014-07-31 Completed Universit y of Vaccine Quad IM 3+ 00:00:00 [facility] TDAP 2014-07-31 Completed University of 00:00:00 [facility] Pneumococcal 2014-07-31 Completed University o f Polysaccharide, 00:00:00 [place] Med ical PPSV23 (PNEUMOVAX) Branch Influenza Virus 2014-07-31 Completed Universit y of Vaccine Quad IM 3+ 00:00:00 [facility] TDAP 2014-07-31 Completed University of 00:00:00 [facility] Pneumococcal 2014-07-31 Completed University o f Polysaccharide, 00:00:00 [place] Med ical PPSV23 (PNEUMOVAX) Branch Influenza Virus 2014-07-31 Completed Universit y of Vaccine Quad IM 3+ 00:00:00 [facility] TDAP 2014-07-31 Completed University of 00:00:00 [facility] Pneumococcal 2014-07-31 Completed University o f Polysaccharide, 00:00:00 [place] Med ical PPSV23 (PNEUMOVAX) Branch Influenza Virus 2014-07-31 Completed Universit y of Vaccine Quad IM 3+ 00:00:00 [facility] TDAP 2014-07-31 Completed University of 00:00:00 [facility] Vital Signs Vital Name Observation Time Observation Value Comments Source HEIGHT 2022-11-25 03:00:00 154.9 cm WEIGHT 2022-11-25 03:00:00 95.3 kg HEIGHT 2022-11-25 03:00:00 154.9 cm WEIGHT 2022-11-25 03:00:00 95.3 kg HEIGHT 2022-11-25 03:00:00 154.9 cm WEIGHT 2022-11-25 03:00:00 95.3 kg Systolic blood 2022-09-09 14:30:00 105 mm[Hg] Univer sity of pressure [facility] Diastolic blood 2022-09-09 14:30:00 78 mm[Hg] Unive rsity of pressure [facility] Heart rate 2022-09-09 14:30:00 95 /min [facility] Body temperature 2022-09-09 14:30:00 37.22 L[place] [facility] [place] [facility] Respiratory rate 2022-09-09 14:30:00 12 /min [facility] ers[facility] [place] [facility] Oxygen saturation in 2022-09-09 14:30:00 93 /min University of Arterial blood by [place] [employer] Pulse oximetry Branch Body height 2022-09-09 12:41:00 152.4 cm Universi ty [facility] Body weight 2022-09-09 12:41:00 98.431 kg [facility] BMI 2022-09-09 12:41:00 42.38 kg/m2 [facility] Systolic blood 2022-08-10 22:08:00 129 mm[Hg] [facility] Diastolic blood 2022-08-10 22:08:00 76 mm[Hg] [facility] Heart rate 2022-08-10 22:08:00 107 /min [facility] Body temperature 2022-08-10 22:08:00 37.17 Laly [facility] Respiratory rate 2022-08-10 22:08:00 15 /min [facility] Oxygen saturation in 2022-08-10 22:08:00 96 /min [facility] [place] [facility] Body weight 2022-08-10 09:00:00 98.5 kg [facility] BMI 2022-08-10 09:00:00 41.03 kg/m2 [facility] Body height 2022-08-05 06:47:00 154.9 cm [facility] Systolic blood 2022-06-05 05:00:00 96 mm[Hg] [facility] Diastolic blood 2022-06-05 05:00:00 66 mm[Hg] [facility] Heart rate 2022-06-05 05:00:00 82 /min [facility] Respiratory rate 2022-06-05 05:00:00 13 /min [facility] Oxygen saturation in 2022-06-05 05:00:00 97 /min [facility] [place] [facility] Body temperature 2022-06-05 02:51:00 36.33 Laly [facility] Body height 2022-06-05 02:51:00 154.9 cm [facility] Body weight 2022-06-05 02:51:00 97.523 kg [facility] BMI 2022-06-05 02:51:00 40.62 kg/m2 [facility] Systolic blood 2022-05-13 07:00:00 127 mm[Hg] [facility] Diastolic blood 2022-05-13 07:00:00 84 mm[Hg] [facility] Heart rate 2022-05-13 07:00:00 90 /min [facility] Respiratory rate 2022-05-13 07:00:00 14 /min [facility] Oxygen saturation in 2022-05-13 07:00:00 97 /min [facility] [place] [facility] Body temperature 2022-05-13 04:01:00 36.56 Laly [facility] Body height 2022-05-13 04:01:00 154.9 cm [facility] Body weight 2022-05-13 04:01:00 95.255 kg [facility] BMI 2022-05-13 04:01:00 39.68 kg/m2 [facility] Systolic blood 2022-05-02 07:00:00 147 mm[Hg] [facility] Diastolic blood 2022-05-02 07:00:00 90 mm[Hg] [facility] Heart rate 2022-05-02 07:00:00 86 /min [facility] Respiratory rate 2022-05-02 07:00:00 17 /min [facility] Oxygen saturation in 2022-05-02 07:00:00 98 /min [facility] [place] [facility] Body temperature 2022-05-02 05:21:00 36.44 Laly [facility] Body height 2022-05-02 05:21:00 154.9 cm [facility] Body weight 2022-05-02 05:21:00 95.255 kg [facility] BMI 2022-05-02 05:21:00 39.68 kg/m2 [facility] Systolic blood 2022-04-29 05:36:00 133 mm[Hg] [facility] Diastolic blood 2022-04-29 05:36:00 85 mm[Hg] [facility] Heart rate 2022-04-29 05:36:00 89 /min [facility] Respiratory rate 2022-04-29 05:36:00 22 /min [facility] Oxygen saturation in 2022-04-29 05:36:00 100 /min [facility] [place] [facility] Body temperature 2022-04-29 02:44:00 36.56 Laly [facility] Body height 2022-04-29 02:44:00 154.9 cm [facility] Body weight 2022-04-29 02:44:00 95.255 kg [facility] BMI 2022-04-29 02:44:00 39.68 kg/m2 [facility] Systolic blood 2022-02-27 21:00:00 116 mm[Hg] [facility] Diastolic blood 2022-02-27 21:00:00 74 mm[Hg] [facility] Heart rate 2022-02-27 21:00:00 89 /min [facility] Body temperature 2022-02-27 21:00:00 36.61 Laly [facility] Respiratory rate 2022-02-27 21:00:00 18 /min [facility] Oxygen saturation in 2022-02-27 21:00:00 98 /min [facility] [place] [facility] Body weight 2022-02-23 13:00:00 92.987 kg [facility] BMI 2022-02-23 13:00:00 38.73 kg/m2 [facility] Body height 2022-02-21 01:00:00 154.9 cm [facility] Body temperature 2022-02-17 21:50:00 37.17 Laly [facility] Heart rate 2022-02-17 21:42:00 77 /min [facility] Respiratory rate 2022-02-17 21:42:00 18 /min [facility] Oxygen saturation in 2022-02-17 21:42:00 94 /min [facility] Arter[facility] blood by [facility] Pulse [facility]xim[facility] Branch Systolic blood 2022-02-17 10:00:00 122 mm[Hg] [facility] Diastolic blood 2022-02-17 10:00:00 69 mm[Hg] [facility] Body weight 2022-02-17 01:00:00 107 kg [facility] BMI 2022-02-17 01:00:00 44.57 kg/m2 [facility] Body height 2022-02-12 09:00:00 154.9 cm [facility] Systolic blood 2022-01-31 16:32:00 136 mm[Hg] [facility] Diastolic blood 2022-01-31 16:32:00 80 mm[Hg] [facility] Heart rate 2022-01-31 16:32:00 84 /min [facility] Body temperature 2022-01-31 16:32:00 37 Laly [facility] Respiratory rate 2022-01-31 16:32:00 10 /min [facility] Oxygen saturation in 2022-01-31 16:32:00 98 /min [facility] Arter[facility] blood by [facility] Branch Body weight 2022-01-30 09:00:00 103.964 kg [facility] BMI 2022-01-30 09:00:00 43.31 kg/m2 [facility] Body height 2022-01-28 04:12:00 154.9 cm [facility] Systolic blood 2022-01-13 03:00:00 134 mm[Hg] [facility] Diastolic blood 2022-01-13 03:00:00 94 mm[Hg] [facility] Heart rate 2022-01-13 03:00:00 119 /min [facility] Respiratory rate 2022-01-13 03:00:00 18 /min [facility] Oxygen saturation in 2022-01-13 03:00:00 91 /min [facility] [place] [facility] Body temperature 2022-01-12 22:31:00 36.94 Laly [facility] Body height 2022-01-12 22:31:00 154.9 cm [facility] Body weight 2022-01-12 22:31:00 104.327 kg [facility] BMI 2022-01-12 22:31:00 43.46 kg/m2 [facility] Systolic blood 2022-01-12 17:00:00 135 mm[Hg] [facility] Diastolic blood 2022-01-12 17:00:00 65 mm[Hg] [facility] Heart rate 2022-01-12 17:00:00 108 /min [facility] Respiratory rate 2022-01-12 17:00:00 20 /min [facility] Oxygen saturation in 2022-01-12 17:00:00 92 /min [facility] [place] [facility] Body temperature 2022-01-12 09:00:00 36.22 Laly [facility] Body weight 2022-01-03 17:00:00 104.32 kg [facility] BMI 2022-01-03 17:00:00 43.46 kg/m2 [facility] Body height 2022-01-02 09:20:00 154.9 cm [facility] Systolic blood 2021-12-09 05:00:00 123 mm[Hg] [facility] Diastolic blood 2021-12-09 05:00:00 66 mm[Hg] [facility] Heart rate 2021-12-09 05:00:00 96 /min [facility] Respiratory rate 2021-12-09 05:00:00 13 /min [facility] Oxygen saturation in 2021-12-09 05:00:00 96 /min [facility] [place] [facility] Body temperature 2021-12-09 03:35:00 35.94 Laly [facility] ersity [facility] Body height 2021-12-09 03:35:00 154.9 cm [facility] Body weight 2021-12-09 03:35:00 104.327 kg [facility] BMI 2021-12-09 03:35:00 43.46 kg/m2 [facility] Systolic blood 2021-09-23 20:00:00 141 mm[Hg] Univer sity of pressure [facility] Diastolic blood 2021-09-23 20:00:00 83 mm[Hg] Unive rsity of [facility] Heart rate 2021-09-23 20:00:00 98 /min [facility] Respiratory rate 2021-09-23 20:00:00 16 /min [facility] Oxygen saturation in 2021-09-23 20:00:00 97 /min University Arterial blood by [facility] Pulse oxim[facility] Branch Body temperature 2021-09-23 18:00:00 36.61 Laly [facility] Body height 2021-09-22 21:50:00 154.9 cm [facility]i [facility] Body weight 2021-09-22 21:50:00 104.3 kg Universi ty [facility] BMI 2021-09-22 21:50:00 43.45 kg/m2 [facility] ty [facility] Systolic blood 2022-11-26 12:00:00 132 mm[Hg] [facility] Diastolic blood 2022-11-26 12:00:00 78 mm[Hg] [facility] Heart rate 2022-11-26 12:00:00 88 /min [facility] Respiratory rate 2022-11-26 12:00:00 12 /min [facility] Oxygen saturation in 2022-11-26 12:00:00 98 /min [facility] Arterial blood by Medical nter Pulse oximetry Body temperature 2022-11-26 08:00:00 36.61 Laly [facility] Body height 2022-11-25 03:00:00 154.9 cm [facility] Body weight 2022-11-25 03:00:00 95.3 kg [facility] BMI 2022-11-25 03:00:00 39.70 kg/m2 [facility] Procedures Procedure Date / Time Performing Clinician Source Performed POCT-GLUCOSE METER 2022-11-26 10:10:00 Soraya [facility] XR CHEST 1 VIEW PORTABLE 2022-11-26 09:14:00 Soraya [facility] / BEDSIDE Center CBC W/PLT COUNT & AUTO 2022-11-26 06:01:00 Soraya [facility] COMPREHENSIVE METABOLIC 2022-11-26 06:01:00 Soraya [facility] MAGNESIUM 2022-11-26 06:01:00 Soraya [facility] CBC W/PLT COUNT & AUTO 2022-11-26 06:01:00 Soraya [facility] POCT-GLUCOSE METER 2022-11-25 23:20:00 Soraya [facility] CBC W/PLT COUNT & AUTO 2022-11-25 16:53:00 Soraya [facility] COMPREHENSIVE METABOLIC 2022-11-25 16:53:00 Soraya [facility] MAGNESIUM 2022-11-25 16:53:00 Soraya [facility] HEMOGLOBIN A1C 2022-11-25 16:53:00 Soraya [facility] TSH/FREE T4 IF INDICATED 2022-11-25 16:53:00 Soraya [facility] B-TYPE NATRIURETIC FACTOR 2022-11-25 16:53:00 Soraya [facility] ([facility] Center T4, FREE 2022-11-25 16:53:00 Soraya [facility] CBC W/PLT COUNT & AUTO 2022-11-25 16:53:00 Soraya [facility] POCT-GLUCOSE METER 2022-11-25 16:32:00 Soraya [facility] POCT-GLUCOSE METER 2022-11-25 09:08:00 Soraya [facility] TROPONIN I 2022-09-09 13:20:00 Joslyn Ruelas [facility] COMP. METABOLIC PANEL 2022-09-09 13:20:[address] [facility] ([id number]) [facility] CBC WITH DIFF 2022-09-09 13:20:00 Joslyn Ruelas [facility] RAPID INFLUENZA A/B 2022-09-09 13:20:00 Joslyn Ruelas [facility] N-TERMINAL PRO-BNP 2022-09-09 13:20:00 Joslyn Ruelas [facility] COVID-19 (ID NOW RAPID 2022-09-09 13:20:00 Joslyn [facility] TESTING) [facility] CONSENT/REFUSAL FOR 2022-09-09 12:19:48 Doctor Unassigned, [facility] DIAGNOSIS AND TREATMENT [place] [facility] POCT GLUCOSE (AUTOMATED) 2022-08-10 17:15:00 Jonas Hernandez [facility] POCT GLUCOSE (AUTOMATED) 2022-08-10 13:45:00 Jonas Hernandez [facility] POCT GLUCOSE (AUTOMATED) 2022-08-10 09:17:00 [facility]as [facility] PO[facility] GLUCOSE (AUTOMATED) 2022-08-10 06:01:00 Jonas Hernandez [facility] POCT GLUCOSE (AUTOMATED) 2022-08-10 02:09:00 Jonas Hernandez [facility] POCT GLUCOSE (AUTOMATED) 2022-08-09 22:26:00 Jonas Hernandez [facility] XR CHEST 1 VW 2022-08-09 19:47:37 Johnson Bowens [facility] XR CHEST 1 VW 2022-08-09 14:07:17 [facility] 2022-08-09 13:17:00 Jonas Hernandez Uni versity [facility] PHOSPHORUS 2022-08-09 11:24:00 Corey Gonzalez [facility] MAGNESIUM 2022-08-09 11:24:00 Corey Gonzalez [facility] BASIC METABOLIC PANEL 2022-08-09 11:24:00 Corey Gonzalez [facility] (NA, K, CL, CO2, GLUCOSE, Medica l Branch BUN, CREATININE, CA) CBC WITH DIFF 2022-08-09 11:24:00 [facility]ATED) 2022-08-09 11:22:00 Jonas Hernandez Uni versity of [facility] POCT GLUCOSE (AUTOMATED) 2022-08-09 06:16:00 Jonas Hernandez Uni versity of [facility] POCT GLUCOSE (AUTOMATED) 2022-08-09 02:24:00 Jonas Hernandez Uni versity of [facility] POCT GLUCOSE (AUTOMATED) 2022-08-08 22:31:00 Jonas Hernandez Uni versity of [facility] POCT GLUCOSE (AUTOMATED) 2022-08-08 17:30:00 Jonas Hernandez Uni versity of [facility] POCT GLUCOSE (AUTOMATED) 2022-08-08 13:20:00 Jonas Hernandez Uni versity of [facility] POCT GLUCOSE (AUTOMATED) 2022-08-08 09:51:00 Jonas Hernandez Uni versity of [facility] POCT GLUCOSE (AUTOMATED) 2022-08-08 06:10:00 Jonas Hernandez Uni versity of [facility] POCT GLUCOSE (AUTOMATED) 2022-08-08 02:37:00 Jonas Hernandez Uni versity of [facility] POCT GLUCOSE (AUTOMATED) 2022-08-07 22:16:00 Jonas Hernandez Uni versity of [facility] POCT GLUCOSE (AUTOMATED) 2022-08-07 17:26:00 Jonas Hernandez Uni versity of [facility] TRANSTHORACIC ECHO (TTE) 2022-08-07 16:31:00 Stella Ivory versity of [facility] W/ CONTRAST Medical [facility] POCT GLUCOSE (AUTOMATED) 2022-08-07 13:42:00 Jonas Hernandez Uni versity of [facility] PHOSPHORUS 2022-08-07 11:00:00 Corey Gonzalez [facility] MAGNESIUM 2022-08-07 11:00:[address] [facility] BILI UNCONJUGATED/BILI 2022-08-07 11:00:00 Corey Gonzalez [facility] TROPONIN I 2022-08-07 11:00:00 [facility] THYROID STIMULATING 2022-08-07 11:00:00 Corey Gonzalez [facility] HORMONE [facility] COMP. METABOLIC PANEL 2022-08-07 11:00:00 Jonas Hernandez [facility] ([id number]) [facility] CBC WITH DIFF 2022-08-07 11:00:[address] [facility] N-TERMINAL PRO-BNP 2022-08-07 11:00:00 Corey Gonzalez [facility] ACUTE CARE VENOUS BLOOD 2022-08-07 10:59:00 Jonas Hernandez [facility] POCT GLUCOSE (AUTOMATED) 2022-08-07 10:17:00 Jonas Hernandez [facility] POCT GLUCOSE (AUTOMATED) 2022-08-07 05:38:00 Jonas Hernandez [facility] POCT GLUCOSE (AUTOMATED) 2022-08-07 02:06:00 Jonas Hernandez [facility] POCT GLUCOSE (AUTOMATED) 2022-08-06 22:27:00 Jonas Hernandez [facility] POCT GLUCOSE (AUTOMATED) 2022-08-06 17:15:00 Jonas Hernandez [facility] CT THORAX W CONTRAST 2022-08-06 16:53:51 Anish Walters [facility] CORTISOL AM 2022-08-06 13:33:00 Jonas Hernandez [facility] CBC WITH DIFF 2022-08-06 13:33:00 Jonas Hernandez [facility] LACTIC ACID WHOLE BLOOD 2022-08-06 13:33:00 Jonas Hernandez [facility] POCT GLUCOSE (AUTOMATED) 2022-08-06 13:27:00 Jonas Hernandez [facility] POCT GLUCOSE (AUTOMATED) 2022-08-06 10:37:00 Jonas Hernandez [facility] PHOSPHORUS 2022-08-06 10:25:00 Mary agus [facility] CREATINE KINASE 2022-08-06 10:25:00 Jonas Hernandez [facility] MAGNESIUM 2022-08-06 10:25:00 Mary agus [facility] TROPONIN I 2022-08-06 10:25:00 Mary agus [facility] COMP. METABOLIC PANEL 2022-08-06 10:25:00 Jonas Hernandez [facility] ([id number]) [facility] ACUTE CARE VENOUS BLOOD 2022-08-06 10:25:00 Jonas Hernandez [facility] N-TERMINAL PRO-BNP 2022-08-06 10:25:00 Jonas Hernandez [facility] POCT GLUCOSE (AUTOMATED) 2022-08-06 06:54:00 Jonas Hernandez [facility] POCT GLUCOSE (AUTOMATED) 2022-08-06 02:30:00 Jonas Hernandez [facility] POCT GLUCOSE (AUTOMATED) 2022-08-05 22:59:00 Jonas Hernandez [facility] TROPONIN I 2022-08-05 22:00:00 Jonas Hernandez [facility] URINALYSIS 2022-08-05 21:45:00 Corey Gonzalez [facility] URINE CULTURE 2022-08-05 21:45:00 Corey Gonzalez [facility] POCT GLUCOSE (AUTOMATED) 2022-08-05 17:53:00 Jonas Hernandez [facility] POCT GLUCOSE (AUTOMATED) 2022-08-05 13:19:00 Jonas Hernandez [facility] XR CHEST 1 VW 2022-08-05 12:59:00 Jonas Hernandez [facility] LEGIONELLA URINARY 2022-08-05 11:12:00 Jonas Hernandez [facility] ANTIGEN TST [facility] RESPIRATORY PANEL BY PCR 2022-08-05 11:12:00 Jonas Hernandez [facility] URINE CULTURE 2022-08-05 11:11:00 Jonas Hernandez [facility] SODIUM, URINE RANDOM 2022-08-05 11:11:00 Jonas Hernandez [facility] PNEUMOCOCCAL ANTIGEN 2022-08-05 11:11:00 Jonas Hernandez [facility] PROTEIN CREAT RATIO URINE 2022-08-05 11:11:00 Jonas [facility]ANDOM [facility] OSMOLALITY URINE 2022-08-05 11:10:00 Mary agus [facility] MRSA / MSSA SCREEN BY 2022-08-05 11:09:00 Jonas Hernandez [facility] PCR, NARES [facility] PHOSPHORUS 2022-08-05 11:08:00 Jonas Hernandez [facility] CREATINE KINASE 2022-08-05 11:08:00 Mary agus [facility] MAGNESIUM 2022-08-05 11:08:00 Mary agus [facility] TROPONIN I 2022-08-05 11:08:00 Mary [facility] COMP. METABOLIC PANEL 2022-08-05 11:08:00 Jonas Hernandez [facility] ([id number]) [facility] LIPID PANEL ([id number])(TOTAL 2022-08-05 11:08:00 [facility]IG[facility], HDL) SEDIMENTATION RATE 2022-08-05 11:08:00 Jonas Hernandez [facility] GLYCOSYLATED HEMOGLOBIN 2022-08-05 11:08:00 Jonas Hernandez [facility] (A1C) [facility] URINALYSIS 2022-08-05 11:08:00 Mary agus [facility] MYCOPLASMA PNEUMONIAE 2022-08-05 11:08:00 Mary agus [facility] ANTIBODY, IGM Medical Branch N-TERMINAL PRO-BNP 2022-08-05 11:08:00 Jonas Hernandez [facility] PROCALCITONIN 2022-08-05 11:08:00 Mary agus [facility] AC PANEL 20 + LACTIC ACID 2022-08-05 10:56:00 Jonas Hernandez [facility] ASSIGNMENT OF BENEFITS 2022-08-05 06:59:31 Doctor [facility] [place] [facility] CONSENT/REFUSAL FOR 2022-08-05 06:58:52 Doctor Unazeke, [facility] DIAGNOSIS AND TREATMENT [place] [facility] XR CHEST 1 VW 2022-06-05 04:10:06 Singer [facility] TROPONIN I 2022-06-05 03:21:00 Singer [facility] COMP. METABOLIC PANEL 2022-06-05 03:21:00 Gen Acevedo [facility] ([id number]) [facility] CBC WITH DIFF 2022-06-05 03:21:00 Singer [facility] RAPID INFLUENZA A/B 2022-06-05 03:21:00 Singer Gen [facility] N-TERMINAL PRO-BNP 2022-06-05 03:21:00 Singer [facility] COVID-19 (ID NOW RAPID 2022-06-05 03:21:00 Singer [facility] TESTING) Medical Branch CONSENT/REFUSAL FOR 2022-06-05 02:20:45 Doctor Arturo [facility] DIAGNOSIS AND TREATMENT [place] [facility] TROPONIN I 2022-05-13 07:08:00 Paula Rowe [facility] CT CHEST PULMONARY 2022-05-13 06:13:34 Paula Rowe [facility] ANGIOGRAM Medical Branch XR CHEST 1 VW 2022-05-13 04:42:45 Jae Paula [facility] BLOOD CULTURE SCREEN 2022-05-13 04:10:00 Paula Rowe [facility] TROPONIN I 2022-05-13 04:10:00 Paula Rowe [facility] COMP. METABOLIC PANEL 2022-05-13 04:10:00 Paula Rowe [facility] ([id number]) Medical Branch CBC WITH DIFF 2022-05-13 04:10:00 Paula Rowe [facility] PROTHROMBIN TIME / INR 2022-05-13 04:10:00 Paula Rowe [facility] ACTIVATED PARTIAL 2022-05-13 04:10:00 Paula Rowe [facility] THRMPLAS [facility] RAPID INFLUENZA A/B 2022-05-13 04:10:00 Paula Rowe [facility] N-TERMINAL PRO-BNP 2022-05-13 04:10:00 Paula Rowe [facility] COVID-19 (ID NOW RAPID 2022-05-13 04:10:00 Paula Rowe [facility] TESTING) [facility] AC PANEL 21 + LACTIC ACID 2022-05-02 06:08:00 [facility]W 2022-05-02 05:52:00 Sanjay Henry [facility] URINALYSIS 2022-05-02 05:44:00 Sanjay Henry [facility] MAGNESIUM 2022-05-02 05:43:00 Sanjay Henry [facility] TROPONIN I 2022-05-02 05:43:00 Sanjay Henry [facility] COMP. METABOLIC PANEL 2022-05-02 05:43:00 Sanjay Henry [facility] ([id number]) Medical Branch CBC WITH DIFF 2022-05-02 05:43:00 Sanjay Henry [facility] N-TERMINAL PRO-BNP 2022-05-02 05:43:00 Sanjay Henry [facility] CONSENT/REFUSAL FOR 2022-05-02 05:16:55 Doctor Unassigned, [facility] DIAGNOSIS AND TREATMENT [place] [facility] COVID-19 (ID NOW RAPID 2022-04-29 03:43:00 Paula Rowe [facility] TESTING) Medical Branch CT ABDOMEN PELVIS WO 2022-04-29 03:38:06 Paula Rowe [facility] CONTRAST [facility] [facility] XR CHEST 1 VW 2022-04-29 03:23:24 Paula Rowe [facility] TROPONIN I 2022-04-29 02:49:00 Paula Rowe [facility] COMP. METABOLIC PANEL 2022-04-29 02:49:00 Paula Rowe [facility] ([id number]) [facility] CBC WITH DIFF 2022-04-29 02:49:00 Paula Rowe [facility] PROTHROMBIN TIME / INR 2022-04-29 02:49:00 Paula Rowe [facility] ACTIVATED PARTIAL 2022-04-29 02:49:00 Paula Rowe [facility] N-TERMINAL PRO-BNP 2022-04-29 02:49:00 Paula Rowe [facility] POCT GLUCOSE (AUTOMATED) 2022-02-27 20:30:00 Kevin [facility] POCT GLUCOSE (AUTOMATED) 2022-02-27 16:16:00 Kevin [facility] POCT GLUCOSE (AUTOMATED) 2022-02-27 12:27:00 Kevin [facility] POCT GLUCOSE (AUTOMATED) 2022-02-26 21:42:00 Kevin [facility] POCT GLUCOSE (AUTOMATED) 2022-02-26 17:49:00 Kevin [facility] POCT GLUCOSE (AUTOMATED) 2022-02-26 14:27:00 Kevin [facility] MAGNESIUM 2022-02-26 08:50:00 Artie Rodriguez [facility] BASIC METABOLIC PANEL 2022-02-26 08:50:00 Artie Rodriguez [facility] (NA, K, CL, CO2, GLUCOSE, Medica l Branch BUN, CREATININE, CA) POCT GLUCOSE (AUTOMATED) 2022-02-26 01:26:00 Kevin [facility] POCT GLUCOSE (AUTOMATED) 2022-02-25 20:40:00 Nagan, Kevin [facility] POCT GLUCOSE (AUTOMATED) 2022-02-25 16:39:00 Kevin Lebron [facility] ACUTE CARE ARTERIAL BLOOD 2022-02-25 14:04:00 [facility]OMATED) 2022-02-25 12:51:00 Kevin Lebron [facility] PHOSPHORUS 2022-02-25 11:01:00 Lisa Fritz [facility] MAGNESIUM 2022-02-25 11:01:00 Lam [facility] BASIC METABOLIC PANEL 2022-02-25 11:01:00 Lisa Fritz [facility] (NA, K, CL, CO2, GLUCOSE, Medica l Branch BUN, CREATININE, CA) POCT GLUCOSE (AUTOMATED) 2022-02-25 01:24:00 Kevin Lebron [facility] POCT GLUCOSE (AUTOMATED) 2022-02-24 20:49:00 Kevin Lebron [facility] POCT GLUCOSE (AUTOMATED) 2022-02-24 16:52:00 Kevin Lebron [facility] ACUTE CARE ARTERIAL BLOOD 2022-02-24 16:42:00 Isma Cortez [facility] POCT GLUCOSE (AUTOMATED) 2022-02-24 13:24:00 Kevin Lebron [facility] TROPONIN I 2022-02-24 12:34:00 Lisa Fritz [facility] BASIC METABOLIC PANEL 2022-02-24 12:34:00 Lisa Fritz [facility] (NA, K, CL, CO2, GLUCOSE, Medica l Branch BUN, CREATININE, CA) HB ECG ROUTINE & RHYTHM 2022-02-24 12:23:17 Lisa Fritz [facility] LACTIC ACID WHOLE BLOOD 2022-02-24 03:13:00 Britt Gabriel [facility] POCT GLUCOSE (AUTOMATED) 2022-02-24 01:20:00 Kevin Lebron [facility] XR KUB 2022-02-24 00:31:00 Dana, [facility] POCT GLUCOSE (AUTOMATED) 2022-02-23 22:34:00 Yasmine [facility] POCT GLUCOSE (AUTOMATED) 2022-02-23 21:46:00 Yasmine Kevin [facility] XR CHEST 1 VW 2022-02-23 19:26:00 Dana [facility] AC PANEL 20 + LACTIC ACID 2022-02-23 18:02:00 Isma Cortez [facility] POCT GLUCOSE (AUTOMATED) 2022-02-23 17:19:00 Yasmine Kevin [facility] POCT GLUCOSE (AUTOMATED) 2022-02-23 13:22:00 Yasmine Kevin [facility] POCT GLUCOSE (AUTOMATED) 2022-02-22 21:55:00 Kevin Lebron [facility] POCT GLUCOSE (AUTOMATED) 2022-02-22 18:22:00 Yasmine Kevin [facility] CBC WITH DIFF 2022-02-22 11:32:00 Joshua [facility] MAGNESIUM 2022-02-22 11:31:00 Joshua [facility] BASIC METABOLIC PANEL 2022-02-22 11:31:00 [facility] (NA, K, CL, CO2, GLUCOSE, Medica l Branch BUN, CREATININE, CA) XR CHEST 1 VW 2022-02-22 09:34:00 Joshua [facility] POCT GLUCOSE (AUTOMATED) 2022-02-22 01:20:00 Yasmine Kevin [facility] POCT GLUCOSE (AUTOMATED) 2022-02-21 21:53:00 Kevin Lebron [facility] CBC WITHOUT DIFF 2022-02-21 15:46:00 Britt Gabriel [facility] POCT GLUCOSE (AUTOMATED) 2022-02-21 14:26:00 Kevin Lebron [facility] URINALYSIS 2022-02-21 08:27:00 Joshua [facility] URINE CULTURE 2022-02-21 08:27:00 Joshua [facility] MAGNESIUM 2022-02-21 08:06:00 Joshua [facility] BASIC METABOLIC PANEL 2022-02-21 08:06:00 Jsohua [facility] (NA, K, CL, CO2, GLUCOSE, Medica l Branch BUN, CREATININE, CA) CBC WITH DIFF 2022-02-21 08:06:00 Joshua [facility] MRSA / MSSA SCREEN BY 2022-02-21 03:21:00 Chase Ny [facility] PCR, [facility] POCT GLUCOSE (AUTOMATED) 2022-02-21 02:31:00 Kevin Lebron [facility] BLOOD CULTURE SCREEN 2022-02-21 01:58:00 Joshua [facility] BLOOD CULTURE SCREEN 2022-02-21 01:49:00 Joshua [facility] XR CHEST 1 VW 2022-02-20 23:44:00 Kevin [facility] ACUTE CARE ARTERIAL BLOOD 2022-02-20 23:23:00 Chase [facility] GAS [facility] XR CHEST 1 VW 2022-02-20 20:39:00 Paula Rowe [facility] TROPONIN I 2022-02-20 20:17:00 Paula Rowe [facility] COMP. METABOLIC PANEL 2022-02-20 20:17:00 Paula Rowe [facility] ([id number]) [facility] CBC WITH DIFF 2022-02-20 20:17:00 Paula Rowe [facility] PROTHROMBIN TIME / INR 2022-02-20 20:17:00 Paula Rowe [facility] ACTIVATED PARTIAL 2022-02-20 20:17:00 Paula Rowe [facility] N-[facility]MINAL PRO-BNP 2022-02-20 20:17:00 Paula Rowe [facility] COVID-19 (ID NOW RAPID 2022-02-20 20:07:00 [facility] TESTING) Medical Branch LAB ONLY COVID 2022-02-20 20:07:00 Paula Rowe [facility] INTERPRETATION [facility] HB ECG ROUTINE & RHYTHM 2022-02-20 20:06:49 Paula Rowe [facility] Branch CONSENT/REFUSAL FOR 2022-02-20 19:58:43 Doctor Unassigned, [facility] DIAGNOSIS AND TREATMENT [place] [facility] EMERGENCY DEPARTMENT 2022-02-20 05:01:00 Doctor Unassigned, [facility] DOCUMENTS [place] [facility] HOSPITAL ADMISSION 2022-02-20 05:01:00 Doctor Unassigned, [facility] POCT GLUCOSE (AUTOMATED) 2022-02-17 21:44:00 Terminella, [facility] ([facility]OMATED) 2022-02-17 17:09:00 Terminella, Valeriano [facility] POCT GLUCOSE (AUTOMATED) 2022-02-17 13:06:00 Termingamaliel, Valeriano [facility] X[facility] CHEST 1 VW 2022-02-17 11:51:08 [facility] 2022-02-17 09:13:00 Nathaniel [facility] BASIC METABOLIC PANEL 2022-02-17 09:13:00 Kayla Armstrong [facility] (NA, K, CL, CO2, GLUCOSE, Medica l Branch BUN, CREATININE, CA) CBC WITH DIFF 2022-02-17 09:13:00 Nathaniel [facility] ACUTE CARE ARTERIAL BLOOD 2022-02-17 09:02:00 Kayla [facility] GAS [facility] POCT GLUCOSE (AUTOMATED) 2022-02-17 00:49:00 Terminella, Valeriano [facility]ST 1 VW 2022-02-16 23:15:00 [facility]SE (AUTOMATED) 2022-02-16 21:46:00 Terminella, Valeriano [facility] POCT GLUCOSE (AUTOMATED) 2022-02-16 16:59:00 Terminella, Av[facility]iano [facility] PO[facility] GLUCOSE (AUTOMATED) 2022-02-16 13:05:00 Terminella, Valer[facility] POCT GLUCOSE (AUTOMATED) 2022-02-16 08:32:00 Terminella, Valeriano [facility] POCT GLUCOSE (AUTOMATED) 2022-02-16 04:29:00 Terminella, Valeriano [facility] POCT GLUCOSE (AUTOMATED) 2022-02-16 00:39:00 Terminella, Valeriano [facility] POCT GLUCOSE (AUTOMATED) 2022-02-15 21:14:00 Terminella, Valeriano [facility] POCT GLUCOSE (AUTOMATED) 2022-02-15 16:58:00 Terminella, Valeriano [facility] POCT GLUCOSE (AUTOMATED) 2022-02-15 12:45:00 Terminella, Valeriano [facility] POCT GLUCOSE (AUTOMATED) 2022-02-15 08:02:00 Terminella, Valeriano [facility] MAGNESIUM 2022-02-15 07:56:00 Roberto Murdock [facility] COMP. METABOLIC PANEL 2022-02-15 07:56:00 [id number] CBC WITHOUT DIFF 2022-02-15 07:56:00 [facility] PO[facility] GLUCOSE (AUTOMATED) 2022-02-15 04:15:00 Terminella, Valeriano [facility] POCT GLUCOSE (AUTOMATED) 2022-02-15 00:48:00 Terminella, Valeriano [facility] POCT GLUCOSE (AUTOMATED) 2022-02-14 21:22:00 Terminella, Valeriano [facility] POCT GLUCOSE (AUTOMATED) 2022-02-14 19:37:00 Terminella, Valeriano [facility] POCT GLUCOSE (AUTOMATED) 2022-02-14 16:28:00 Terminella, Valeriano [facility] POCT GLUCOSE (AUTOMATED) 2022-02-14 14:17:00 Termingamaliel, Valeriano [facility] XR CHEST 1 VW 2022-02-14 11:42:00 [facility] 2022-02-14 09:56:00 Nathaniel [facility] COMP. METABOLIC PANEL 2022-02-14 09:56:00 Kayla Armstrong [facility] ([id number]) Medical Branch CBC WITH DIFF 2022-02-14 09:56:00 Nathaniel [facility] ACUTE CARE ARTERIAL BLOOD 2022-02-14 08:33:00 [facility] (AUTOMATED) 2022-02-14 08:17:00 Terminella, Valeriano [facility] POCT GLUCOSE (AUTOMATED) 2022-02-14 04:25:00 Terminella, Valeriano [facility] EKG-12 LEAD 2022-02-14 04:11:18 Doctor Unassigned, [facility] [place] [facility] POCT GLUCOSE (AUTOMATED) 2022-02-14 00:55:00 Terminella, Valeriano [facility] POCT GLUCOSE (AUTOMATED) 2022-02-13 22:29:00 Terminella, Valeriano [facility] POCT GLUCOSE (AUTOMATED) 2022-02-13 17:29:00 Terminella, Valeriano [facility] POCT GLUCOSE (AUTOMATED) 2022-02-13 15:52:00 Terminella, Valeriano [facility] ACUTE CARE ARTERIAL BLOOD 2022-02-13 14:22:00 Kayla Armstrong [facility] POCT GLUCOSE (AUTOMATED) 2022-02-13 14:07:00 Terminella, Valeriano [facility] DUPLEX VENOUS LEGS 2022-02-13 14:00:43 Roberto Murdock [facility] BILATERAL - BY VASCULAR [facility] Branch LAB POCT GLUCOSE (AUTOMATED) 2022-02-13 12:45:00 Terminella, Valeriano [facility] POCT GLUCOSE (AUTOMATED) 2022-02-13 11:43:00 Terminella, Valeriano [facility] MAGNESIUM 2022-02-13 10:33:00 Terminella, Valeriano [facility] BASIC METABOLIC PANEL 2022-02-13 10:33:00 Murdock, Roberto [facility] [place] (NA, K, CL, CO2, GLUCOSE, Medica l Branch BUN, CREATININE, CA) CBC WITH DIFF 2022-02-13 10:33:00 Terminella, Valeriano [facility] POCT GLUCOSE (AUTOMATED) 2022-02-13 09:42:00 Terminella, Valeriano [facility] POCT GLUCOSE (AUTOMATED) 2022-02-13 08:46:00 Terminella, Valeriano [facility] POCT GLUCOSE (AUTOMATED) 2022-02-13 07:59:00 Terminella, Valeriano [facility] POCT GLUCOSE (AUTOMATED) 2022-02-13 06:56:00 Terminella, Valeriano [facility] POCT GLUCOSE (AUTOMATED) 2022-02-13 05:57:00 Terminella, Valeriano [facility] POCT GLUCOSE (AUTOMATED) 2022-02-13 03:36:00 Terminella, Valeriano [facility] BASIC METABOLIC PANEL 2022-02-13 03:30:00 Murdock, Roberto [facility] [place] (NA, K, CL, CO2, GLUCOSE, Medica l Branch BUN, CREATININE, CA) POCT GLUCOSE (AUTOMATED) 2022-02-13 02:46:00 Terminella, Valeriano [facility] POCT GLUCOSE (AUTOMATED) 2022-02-13 01:37:00 Terminella, Valeriano [facility] POCT GLUCOSE (AUTOMATED) 2022-02-13 00:34:00 Terminella, Valeriano [facility] POCT GLUCOSE (AUTOMATED) 2022-02-12 23:25:00 Terminella, Valeriano [facility] POCT GLUCOSE (AUTOMATED) 2022-02-12 22:20:00 Terminella, Valeriano U [facility] POCT GLUCOSE (AUTOMATED) 2022-02-12 21:02:00 Terminella, Valeriano U [facility] BASIC METABOLIC PANEL 2022-02-12 20:39:00 [facility] ([facility], K, CL, CO2, GLUCOSE, Medica l Branch BUN, CREATININE, CA) POCT GLUCOSE (AUTOMATED) 2022-02-12 20:02:00 Terminella, Valeriano U [facility] POCT GLUCOSE (AUTOMATED) 2022-02-12 19:06:00 Terminella, Valeriano U [facility] POCT GLUCOSE (AUTOMATED) 2022-02-12 18:09:00 Terminella, Valeriano U [facility] POCT GLUCOSE (AUTOMATED) 2022-02-12 17:17:00 TerminJanuary alstoni [facility] SPUTUM CULTURE 2022-02-12 16:29:00 January [facility] BASIC METABOLIC PANEL 2022-02-12 16:16:00 Kayla Armstrong [facility] (NA, K, CL, CO2, GLUCOSE, Medica l Branch BUN, CREATININE, CA) POCT GLUCOSE (AUTOMATED) 2022-02-12 16:11:00 Terminella, Valeriano U [facility] POCT GLUCOSE (AUTOMATED) 2022-02-12 14:14:00 Terminella, Valeriano U [facility] POCT GLUCOSE (AUTOMATED) 2022-02-12 13:17:00 Terminella, Valeriano U [facility] POCT GLUCOSE (AUTOMATED) 2022-02-12 12:42:00 Terminella, Valeriano U [facility] BASIC METABOLIC PANEL 2022-02-12 12:18:00 [facility] ([facility], K, CL, CO2, GLUCOSE, Medica l Branch BUN, CREATININE, CA) POCT GLUCOSE (AUTOMATED) 2022-02-12 12:17:00 Terminella, Valeriano U [facility] POCT GLUCOSE (AUTOMATED) 2022-02-12 11:15:00 Valeriano Pantoja [facility] POCT GLUCOSE (AUTOMATED) 2022-02-12 10:12:00 Valeriano Pantoja [facility] POCT GLUCOSE (AUTOMATED) 2022-02-12 09:12:00 Valeriano Pantoja [facility] MRSA / MSSA SCREEN BY 2022-02-12 08:23:00 [facility] PCR, NARES [facility] AC PANEL 20 + LACTIC ACID 2022-02-12 08:22:00 [facility] PHOSPHORUS 2022-02-12 08:21:00 Scarlett [facility] MAGNESIUM 2022-02-12 08:21:00 [facility], SERUM OR 2022-02-12 08:21:00 [facility] BETA HYDROXY-BUTYRATE 2022-02-12 08:21:00 [facility] BASIC METABOLIC PANEL 2022-02-12 08:21:00 [facility] (NA, K, CL, CO2, GLUCOSE, Medica l Branch BUN, CREATININE, CA) CBC WITH DIFF 2022-02-12 08:21:00 [facility] GLYCOSYLATED HEMOGLOBIN 2022-02-12 08:21:00 [facility] ([facility] POCT GLUCOSE (AUTOMATED) 2022-02-12 04:53:00 Paula Rowe [facility] URINE DRUG (IMMUNOASSAY) 2022-02-12 04:24:00 Paula Rowe [facility] DRUG [facility] SCREEN W/O REFLEX URINALYSIS 2022-02-12 04:23:00 Paula Rowe [facility] POCT GLUCOSE (AUTOMATED) 2022-02-12 04:12:00 Paula Rowe [facility] CT CHEST PULMONARY 2022-02-12 02:41:40 [facility] ABDOMEN PELVIS W 2022-02-12 02:39:36 Paula Rowe [facility] CONTRAST [facility] CT HEAD WO CONTRAST 2022-02-12 02:39:36 Paula Rowe [facility] XR CHEST 1 VW 2022-02-12 02:08:38 Paula Rowe [facility] AC PANEL 20 + LACTIC ACID 2022-02-12 01:59:00 [facility] AMMONIA, PLASMA 2022-02-12 01:18:00 Paula Rowe [facility] BLOOD CULTURE SCREEN 2022-02-12 01:16:00 [facility]e [facility] COVID-[facility] (ID NOW RAPID 2022-02-12 01:16:00 Paula Rowe [facility] TESTING) [facility] LAB ONLY COVID 2022-02-12 01:16:00 Paula Rowe [facility] INTERPRETATION [facility] BLOOD CULTURE SCREEN 2022-02-12 01:12:00 Paula Rowe [facility] TROPONIN I 2022-02-12 01:12:00 Paula Rowe [facility] FREE T4 2022-02-12 01:12:00 Paula Rowe [facility] THYROID STIMULATING 2022-02-12 01:12:00 Paula Rowe [facility] HORMONE [facility] COMP. METABOLIC PANEL 2022-02-12 01:12:00 Paula Rowe [facility] ([id number]) Medical Branch ETHANOL 2022-02-12 01:12:00 Paula Rowe [facility] CBC WITH DIFF 2022-02-12 01:12:00 Paula Rowe [facility] PROTHROMBIN TIME / INR 2022-02-12 01:12:00 Paula Rowe [facility] ACTIVATED PARTIAL 2022-02-12 01:12:00 Paula Rowe [facility] THRMPLAS SHREYA [facility] N-TERMINAL PRO-BNP 2022-02-12 01:12:00 Paula Rowe [facility] EKG-12 LEAD 2022-02-12 01:06:16 Doctor Unassigned, [facility] [place] [facility] POCT GLUCOSE (AUTOMATED) 2022-02-12 00:57:00 Paula Rowe [facility] ASSIGNMENT OF BENEFITS 2022-02-12 00:53:44 Doctor Unassigned, [facility] Name Medical Branch CONSENT/REFUSAL FOR 2022-02-12 00:53:30 Doctor Unassigned, [facility] DIAGNOSIS AND TREATMENT [place] [facility] EMERGENCY DEPARTMENT 2022-02-11 05:01:00 Doctor Unassigned, [facility] DOCUMENTS [place] [facility] POCT GLUCOSE (AUTOMATED) 2022-01-31 16:09:00 Jonas Hernandez [facility] POCT GLUCOSE (AUTOMATED) 2022-01-31 12:37:00 Jonas Hernandez [facility] PHOSPHORUS 2022-01-31 09:02:00 [facility]UM 2022-01-31 09:02:00 [facility] BASIC METABOLIC PANEL 2022-01-31 09:02:00 Luz Maria [facility] (NA, K, CL, CO2, GLUCOSE, Medica l Branch BUN, CREATININE, CA) ACUTE CARE VENOUS BLOOD 2022-01-31 09:02:00 [facility] N-TERMINAL PRO-BNP 2022-01-31 09:02:[address] [facility] POCT GLUCOSE (AUTOMATED) 2022-01-30 21:20:00 Jonas Hernandez [facility] POCT GLUCOSE (AUTOMATED) 2022-01-30 16:58:00 Jonas Hernandez [facility] POCT GLUCOSE (AUTOMATED) 2022-01-30 13:58:00 Jonas Hernandez [facility] POCT GLUCOSE (AUTOMATED) 2022-01-30 13:11:00 Jonas Hernandez [facility] COMP. METABOLIC PANEL 2022-01-30 09:22:00 Jonas Hernandez [facility] ([id number]) [facility] CBC WITH DIFF 2022-01-30 09:22:00 [facility] N-TERMINAL PRO-BNP 2022-01-30 09:22:00 Jonas Hernandez [facility] ACUTE CARE VENOUS BLOOD 2022-01-30 09:21:00 Jonas Hernandez [facility] POCT GLUCOSE (AUTOMATED) 2022-01-30 03:01:00 Jonas Hernandez [facility] POCT GLUCOSE (AUTOMATED) 2022-01-29 21:03:00 Jonas Hernandez [facility] POCT GLUCOSE (AUTOMATED) 2022-01-29 16:05:00 Jonas Hernandez [facility] POCT GLUCOSE (AUTOMATED) 2022-01-29 15:13:00 Jonas Hernandez [facility] SPUTUM CULTURE 2022-01-29 13:06:00 Luz Maria [facility] POCT GLUCOSE (AUTOMATED) 2022-01-29 12:46:00 Jonas Hernandez [facility] PHOSPHORUS 2022-01-29 09:33:00 Luz Maria [facility] MAGNESIUM 2022-01-29 09:33:00 Mary agus [facility] COMP. METABOLIC PANEL 2022-01-29 09:33:00 [id number] CBC WITH DIFF 2022-01-29 09:33:00 [facility] N-TERMINAL PRO-BNP 2022-01-29 09:33:00 Jonas Hernandez [facility] ACUTE CARE VENOUS BLOOD 2022-01-29 09:32:00 Jonas Hernandez [facility] POCT GLUCOSE (AUTOMATED) 2022-01-29 02:58:00 Jonas Hernandez [facility] POCT GLUCOSE (AUTOMATED) 2022-01-29 01:35:00 Jonas Hernandez [facility] POCT GLUCOSE (AUTOMATED) 2022-01-28 21:20:00 Mary, Adnan [facility] XR CHEST 1 VW 2022-01-28 18:54:18 Markus Loera [facility] PROTEIN CREAT RATIO URINE 2022-01-28 16:54:00 Dilan Coffey [facility] URIC ACID 2022-01-28 16:49:00 Dilan Coffey [facility] TROPONIN I 2022-01-28 16:49:00 Mary agus [facility] TRANSTHORACIC ECHO (TTE) 2022-01-28 15:37:[address] [facility] COMPLETE W/ CONTRAST [facility] DUPLEX VENOUS LEGS 2022-01-28 14:42:22 Jonas Hernanedz [facility] BILATERAL - BY VASCULAR [facility] Branch LAB POCT GLUCOSE (AUTOMATED) 2022-01-28 13:57:00 Mary agus [facility] POCT GLUCOSE (AUTOMATED) 2022-01-28 12:58:00 Jonas Hernandez [facility] TROPONIN I 2022-01-28 11:46:[address] [facility] IRON PANEL 2022-01-28 11:46:00 Mary agus [facility] SEDIMENTATION RATE 2022-01-28 11:46:00 Mary agus [facility] N-TERMINAL PRO-BNP 2022-01-28 11:46:[address] [facility] PHOSPHORUS 2022-01-28 11:45:00 Mary agus [facility] CREATINE KINASE 2022-01-28 11:45:00 Mary [facility] URIC ACID 2022-01-28 11:45:00 Mary [facility] MAGNESIUM 2022-01-28 11:45:00 Mary [facility] FERRITIN SERUM 2022-01-28 11:45:00 Mary [facility] VITAMIN B12, LEVEL 2022-01-28 11:45:00 Mary, Adnan [facility] TROPONIN I 2022-01-28 11:45:00 Mary [facility] THYROID STIMULATING 2022-01-28 11:45:00 Jonas Hernandez [facility] HORMONE [facility] COMP. METABOLIC PANEL 2022-01-28 11:45:00 Mary agus [facility] ([id number]) [facility] LIPID PANEL ([id number])(TOTAL 2022-01-28 11:45:00 Jon[facility] CHOLESTEROL, [facility] TRIGLYCERIDES, HDL) ACUTE CARE VENOUS BLOOD 2022-01-28 11:45:00 Mary agus [facility] N-TERMINAL PRO-BNP 2022-01-28 11:45:00 Mary agus [facility] VITAMIN D, 25-OH 2022-01-28 11:45:00 Mary [facility] PROCALCITONIN 2022-01-28 11:45:00 Mary [facility] OSMOLALITY URINE 2022-01-28 08:55:00 Mary [facility] URINALYSIS 2022-01-28 08:55:00 Mary [facility] URINE CULTURE 2022-01-28 08:55:00 Mary [facility] UREA NITROGEN, URINE 2022-01-28 08:55:00 Mary agus [facility] SODIUM, URINE RANDOM 2022-01-28 08:55:00 Mary [facility] PROTEIN CREAT RATIO URINE 2022-01-28 08:55:00 Jonas Hernandez [facility] XR CHEST 1 VW 2022-01-28 02:23:00 Paula Rowe [facility] TROPONIN I 2022-01-28 02:09:00 Paula Rowe [facility] COMP. METABOLIC PANEL 2022-01-28 02:09:00 Paula Rowe [facility] ([id number]) Medical Branch CBC WITH DIFF 2022-01-28 02:09:00 Paula Rowe Starr o f [facility] GLYCOSYLATED HEMOGLOBIN 2022-01-28 02:09:00 Jonas Hernandez [facility] (A1C) [facility] PROTHROMBIN TIME / INR 2022-01-28 02:09:00 Paula Rowe [facility] ACTIVATED PARTIAL 2022-01-28 02:09:00 Paula Rowe [facility] THRMPLAS SHREYA [facility] N-TERMINAL PRO-BNP 2022-01-28 02:09:00 Paula Rowe [facility] COVID-19 (ID NOW RAPID 2022-01-28 02:09:00 Paula Roew [facility] TESTING) Medical Branch LAB ONLY COVID 2022-01-28 02:09:00 Paula Rowe [facility] INTERPRETATION [facility] HB ECG ROUTINE & RHYTHM 2022-01-28 01:47:33 Paula Rowe [facility] STRIP [facility] NOTICE OF PRIVACY 2022-01-28 01:38:34 Doctor Unassigned, [facility] PRACTICES [place] [facility] CONSENT/REFUSAL FOR 2022-01-28 01:37:59 Doctor Unassigned, [facility] DIAGNOSIS AND TREATMENT [place] [facility] COMP. METABOLIC PANEL 2022-01-12 23:24:[address] [facility] ([id number]) [facility] CBC WITH DIFF 2022-01-12 23:24:00 Joslyn Ruelas [facility] XR CHEST 1 VW 2022-01-12 23:20:00 Joslyn Ruelas [facility] AC PANEL 21 + LACTIC ACID 2022-01-12 23:14:00 Joslyn Ruelas [facility] POCT GLUCOSE (AUTOMATED) 2022-01-12 17:48:00 MoCory lucio [facility] POCT GLUCOSE (AUTOMATED) 2022-01-12 13:22:00 MoCory lucio [facility] POCT GLUCOSE (AUTOMATED) 2022-01-12 05:51:00 MoCory lucio [facility] POCT GLUCOSE (AUTOMATED) 2022-01-11 23:02:00 MoCory lucio [facility] POCT GLUCOSE (AUTOMATED) 2022-01-11 17:20:00 [place]oulin, [facility] POCT GLUCOSE (AUTOMATED) 2022-01-11 13:08:00 [place]lin, Cory [facility] POCT GLUCOSE (AUTOMATED) 2022-01-11 11:35:00 [place]lin, Cory Nimco [facility] MAGNESIUM 2022-01-11 10:46:00 [facility] BASIC METABOLIC PANEL 2022-01-11 10:46:00 [facility] (NA, K, CL, CO2, GLUCOSE, Medica l Branch BUN, CREATININE, CA) CBC WITH DIFF 2022-01-11 10:46:00 Dawood Alva [facility] POCT GLUCOSE (AUTOMATED) 2022-01-11 04:13:00 Moulin, Cory [facility] POCT GLUCOSE (AUTOMATED) 2022-01-10 22:36:00 [place]lin, Cory [facility] POCT GLUCOSE (AUTOMATED) 2022-01-10 16:44:00 Moulin, Cory [facility] POCT GLUCOSE (AUTOMATED) 2022-01-10 13:02:00 Moulin, Cory [facility] POCT GLUCOSE (AUTOMATED) 2022-01-10 10:44:00 Moulin, Cory [facility] MAGNESIUM 2022-01-10 07:19:00 Cam [facility] BASIC METABOLIC PANEL 2022-01-10 07:19:00 Haider Levy [facility] (NA, K, CL, CO2, GLUCOSE, Medica l Branch BUN, CREATININE, CA) CBC WITH DIFF 2022-01-10 07:19:00 Cam [facility] POCT GLUCOSE (AUTOMATED) 2022-01-10 04:48:00 [place]oulin, Cory [facility] POCT GLUCOSE (AUTOMATED) 2022-01-09 17:23:00 Moulin, Cory [facility] POCT GLUCOSE (AUTOMATED) 2022-01-09 12:46:00 Moulin, Cory [facility] BASIC METABOLIC PANEL 2022-01-09 10:50:00 Ahmed, [facility] (NA, K, CL, CO2, GLUCOSE, Medica l Branch BUN, CREATININE, CA) CBC WITH DIFF 2022-01-09 10:50:00 Dawood Alva [facility] POCT GLUCOSE (AUTOMATED) 2022-01-09 10:42:00 Moulin, Cory [facility] POCT GLUCOSE (AUTOMATED) 2022-01-09 04:21:00 Moulin, Cory [facility] POCT GLUCOSE (AUTOMATED) 2022-01-08 23:17:00 Moulin, Cory [facility] POCT GLUCOSE (AUTOMATED) 2022-01-08 18:14:00 Moulin, Cory [facility] POCT GLUCOSE (AUTOMATED) 2022-01-08 13:34:00 Moulin, Cory [facility] POCT GLUCOSE (AUTOMATED) 2022-01-08 10:57:00 Moulin, Cory [facility] BASIC METABOLIC PANEL 2022-01-08 10:48:00 Artie [facility] (NA, K, CL, CO2, GLUCOSE, Medica l Branch BUN, CREATININE, CA) CBC WITH DIFF 2022-01-08 10:48:00 Dawood Alva [facility] POCT GLUCOSE (AUTOMATED) 2022-01-08 05:43:00 Moulin, Cory [facility] POCT GLUCOSE (AUTOMATED) 2022-01-07 21:25:00 Moulin, [facility] POCT GLUCOSE (AUTOMATED) 2022-01-07 16:34:00 Moulin, Cory [facility] ABG+COOX+NA+K+GLU+CA2+ 2022-01-07 15:40:00 Abu Shahla Stack [facility] POCT GLUCOSE (AUTOMATED) 2022-01-07 13:07:00 Moulin, Cory [facility] BASIC METABOLIC PANEL 2022-01-07 07:14:00 Ahmerlyn [facility] (NA, K, CL, CO2, GLUCOSE, Medica l Branch BUN, CREATININE, CA) CBC WITH DIFF 2022-01-07 07:14:00 [facility] POCT GLUCOSE (AUTOMATED) 2022-01-07 05:53:00 Moulin, Cory [facility] POCT GLUCOSE (AUTOMATED) 2022-01-06 23:35:00 Moulin, Cory [facility] POCT GLUCOSE (AUTOMATED) 2022-01-06 22:16:00 Moulin, Cory [facility] XR CHEST 1 VW 2022-01-06 21:37:00 Abu Atherah, [facility] POCT GLUCOSE (AUTOMATED) 2022-01-06 17:02:00 Moulin, Cory [facility] POCT GLUCOSE (AUTOMATED) 2022-01-06 13:41:00 MoulinCory [facility] PHOSPHORUS 2022-01-06 09:21:00 [facility] MAGNESIUM 2022-01-06 09:21:00 Ahmed [facility] BASIC METABOLIC PANEL 2022-01-06 09:21:00 [facility] (NA, K, CL, CO2, GLUCOSE, Medica l Branch BUN, CREATININE, CA) CBC WITH DIFF 2022-01-06 09:21:00 Artie [facility] POCT GLUCOSE (AUTOMATED) 2022-01-05 20:44:00 Moulin, Cory [facility] XR ABDOMEN 1 VW 2022-01-05 17:55:00 Abu Atherah, [facility] POCT GLUCOSE (AUTOMATED) 2022-01-05 16:54:00 MoulinCory [facility] POCT GLUCOSE (AUTOMATED) 2022-01-05 13:09:00 MoulinCory [facility] PHOSPHORUS 2022-01-05 09:06:00 MoulinCory [facility] MAGNESIUM 2022-01-05 09:06:00 Mou[place], [facility] BASIC METABOLIC PANEL 2022-01-05 09:06:00 [facility] (NA, K, CL, CO2, GLUCOSE, Medica l Branch BUN, CREATININE, CA) CBC WITH DIFF 2022-01-05 09:06:00 Moulin, [facility] POCT GLUCOSE (AUTOMATED) 2022-01-05 05:07:00 Moulin, Cory [facility] POCT GLUCOSE (AUTOMATED) 2022-01-04 22:10:00 Moulin, Cory [facility] POCT GLUCOSE (AUTOMATED) 2022-01-04 17:14:00 Moulin, Cory [facility] POCT GLUCOSE (AUTOMATED) 2022-01-04 11:15:00 Moulin, Cory [facility] PHOSPHORUS 2022-01-04 10:42:00 Jenifer [facility] MAGNESIUM 2022-01-04 10:42:00 Jeniefr, [facility] BASIC METABOLIC PANEL 2022-01-04 10:42:00 Jenifer [facility] (NA, K, CL, CO2, GLUCOSE, Medica l Branch BUN, CREATININE, CA) VANCOMYCIN TROUGH 2022-01-04 10:42:00 [place], [facility] CBC WITH DIFF 2022-01-04 10:42:00 Jenifer [facility] CT ABDOMEN PELVIS W 2022-01-04 09:03:00 Shahla Andrade [facility] POCT GLUCOSE (AUTOMATED) 2022-01-04 06:25:00 [place]oulin, Cory [facility] POCT GLUCOSE (AUTOMATED) 2022-01-03 21:21:00 Moulin, Cory [facility] XR CHEST 1 VW 2022-01-03 20:48:16 Shahla Andrade [facility] POCT GLUCOSE (AUTOMATED) 2022-01-03 16:50:00 [place]lin, Cory [facility] POCT GLUCOSE (AUTOMATED) 2022-01-03 12:59:00 [place]oulin, Cory [facility] POCT GLUCOSE (AUTOMATED) 2022-01-03 10:17:00 [place]oulin, Cory [facility] AC PANEL 20 + LACTIC ACID 2022-01-03 10:15:00 Cory Cee [facility] MAGNESIUM 2022-01-03 08:54:00 Cory Cee [facility] BASIC METABOLIC PANEL 2022-01-03 08:54:00 Cory Cee [facility] (NA, K, CL, CO2, GLUCOSE, Medica l Branch BUN, CREATININE, CA) CBC WITH DIFF 2022-01-03 08:54:00 Cory Cee [facility] POCT GLUCOSE (AUTOMATED) 2022-01-03 04:48:00 MoCory lucio [facility] POCT GLUCOSE (AUTOMATED) 2022-01-02 22:15:00 Cory Cee [facility] SPUTUM CULTURE 2022-01-02 19:39:00 Abu Phillip [facility] XR KUB 2022-01-02 18:17:54 Abu Phillip [facility] XR KUB 2022-01-02 17:07:05 Abu Phillip [facility] POCT GLUCOSE (AUTOMATED) 2022-01-02 16:26:00 Cory Cee [facility] CT HEAD WO CONTRAST 2022-01-02 15:49:23 Meño Stack [facility] XR CHEST 1 VW 2022-01-02 13:45:16 Meño Stack [facility] AC PANEL 20 + LACTIC ACID 2022-01-02 12:37:00 Abjackie Stack [facility] POCT GLUCOSE (AUTOMATED) 2022-01-02 12:26:00 Cory Cee [facility] BASIC METABOLIC PANEL 2022-01-02 10:42:00 Cory Cee [facility] (NA, K, CL, CO2, GLUCOSE, Medica l Branch BUN, CREATININE, CA) BLOOD CULTURE SCREEN 2022-01-02 10:41:00 Cory Cee [facility] CBC WITH DIFF 2022-01-02 10:41:00 Cory Cee [facility] GLYCOSYLATED HEMOGLOBIN 2022-01-02 10:41:00 Abu Shahla Stack [facility]) [facility] BLOOD CULTURE SCREEN 2022-01-02 10:40:00 Cory Cee [facility] acute hospital RESPIRATORY CULTURE 2022-01-02 10:40:00 MoCory lucio [facility] URINE CULTURE 2022-01-02 10:39:00 Cory Cee Starr o f [facility] MRSA / MSSA SCREEN BY 2022-01-02 10:39:00 Cory Cee [facility] ABG+COOX+NA+K+GLU+CA2+ 2022-01-02 10:17:00 Cory Cee [facility] AC PANEL 21 + LACTIC ACID 2022-01-02 03:53:00 [facility]W 2022-01-02 02:59:00 [facility] URINAL[facility]IS 2022-01-02 02:58:00 [facility] LACTIC ACID WHOLE BLOOD 2022-01-02 02:26:00 Janis Valencia [facility] AC PANEL 21 + LACTIC ACID 2022-01-02 02:26:00 Janis Valencia [facility] BLOOD CULTURE SCREEN 2022-01-02 02:25:00 Janis [facility] TROPONIN I 2022-01-02 02:25:00 [facility] COMP. METABOLIC PANEL 2022-01-02 02:25:00 Janis Valencia [facility] ([id number]) [facility] CBC WITH DIFF 2022-01-02 02:25:00 Janis Valencia [facility] N-TERMINAL PRO-BNP 2022-01-02 02:25:00 Janis Valencia [facility] HB ECG ROUTINE & RHYTHM 2022-01-02 02:14:14 Janis Valencia [facility] HOSPITAL ADMISSION 2022-01-01 05:01:00 Doctor Unassigned, [facility] [place] [facility] XR CHEST 1 VW 2021-12-09 04:15:00 Duke Velazquez [facility] LIPASE 2021-12-09 03:52:00 Duke Velazquez [facility] TROPONIN I 2021-12-09 03:52:00 Duke Velazquez [facility] COMP. METABOLIC PANEL 2021-12-09 03:52:00 [facility] Vel[facility] ([id number]) [facility] CBC WITH DIFF 2021-12-09 03:52:00 Duke Velazquez [facility] N-TERMINAL PRO-BNP 2021-12-09 03:52:00 Duke Velazquez [facility] CONSENT/REFUSAL FOR 2021-12-09 03:24:16 Doctor Unassigned, [facility] DIAGNOSIS AND TREATMENT [place] [facility] POCT GLUCOSE (AUTOMATED) 2021-09-23 17:13:00 Paula Rowe [facility] POCT GLUCOSE (AUTOMATED) 2021-09-23 13:53:00 Paula Rowe [facility] BASIC METABOLIC PANEL 2021-09-23 10:22:00 Laurie Wilkins [facility] (NA, K, CL, CO2, GLUCOSE, Medica l Branch BUN, CREATININE, CA) CBC WITHOUT DIFF 2021-09-23 10:22:00 Laurie Wilkins [facility] POCT GLUCOSE (AUTOMATED) 2021-09-23 10:12:00 Paula Rowe [facility] POCT GLUCOSE (AUTOMATED) 2021-09-23 05:38:00 Paula Rowe [facility] POCT GLUCOSE (AUTOMATED) 2021-09-23 02:14:00 Paula Rowe [facility] POCT GLUCOSE (AUTOMATED) 2021-09-22 22:20:00 Paula Rowe [facility] POCT GLUCOSE (AUTOMATED) 2021-09-22 19:52:00 Paula Rowe [facility] TRANSTHORACIC ECHO (TTE) 2021-09-22 18:44:47 [facility]/ CONTRAST [facility] POCT GLUCOSE (AUTOMATED) 2021-09-22 18:07:00 Paula Rowe [facility] EKG-12 LEAD 2021-09-22 13:45:05 Jae Paula [facility] POCT GLUCOSE (AUTOMATED) 2021-09-22 13:20:00 Paula Rowe [facility] PNEUMOCOCCAL ANTIGEN 2021-09-22 12:39:00 Nathaniel [facility] MRSA / MSSA SCREEN BY 2021-09-22 12:34:[address] [facility] BY PCR 2021-09-22 12:34:00 Nikos Pugh [facility] GALV ONLY - INFLUENZA A B 2021-09-22 12:33:00 [facility] RSV PCR [facility] COVID-19 (MOLECULAR 2021-09-22 12:33:00 Cecilia Jones [facility] TESTING [facility] NUCLEIC ACID AMPLIFICATION) SPUTUM CULTURE 2021-09-22 12:30:00 Nathaniel [facility] AC PANEL 20 + LACTIC ACID 2021-09-22 12:16:00 Cabrera Armstrong [facility] PHOSPHORUS 2021-09-22 12:15:00 Nathaniel [facility] MAGNESIUM 2021-09-22 12:15:00 Nathaniel [facility] HEPATIC FUNCTION PANEL 2021-09-22 12:15:00 [id number] (ALB,T.PRO,BILI Medical Branch T,BU/BC,ALT,AST,ALK PHOS) BASIC METABOLIC PANEL 2021-09-22 12:15:[address] [facility] (NA, K, CL, CO2, GLUCOSE, Medica l Branch BUN, CREATININE, CA) CBC WITH DIFF 2021-09-22 12:15:00 Nathaniel [facility] PROTHROMBIN TIME / INR 2021-09-22 12:15:00 Nathaniel [facility] BLOOD CULTURE SCREEN 2021-09-22 12:13:00 Nathaniel [facility] AC PANEL 20 + LACTIC ACID 2021-09-22 06:41:00 Paula Rowe [facility] TROPONIN I 2021-09-22 06:36:00 Paula Rowe [facility] COMP. METABOLIC PANEL 2021-09-22 06:36:00 Paula Rowe [facility] ([id number]) Medical Branch CBC WITH DIFF 2021-09-22 06:36:00 Paula Rowe [facility] GLYCOSYLATED HEMOGLOBIN 2021-09-22 06:36:00 [facility] PROTHROMBIN TIME / INR 2021-09-22 06:36:00 Paula Rowe [facility] ACTIVATED PARTIAL 2021-09-22 06:36:00 Paula Rowe [facility] THRMPLAS SHREYA [facility] N-TERMINAL PRO-BNP 2021-09-22 06:36:00 Paula Rowe [facility] COVID-19 (ID NOW RAPID 2021-09-22 06:36:00 Paula Rowe [facility] TESTING) Medical Branch LAB ONLY COVID 2021-09-22 06:36:00 Paula Rowe [facility] INTERPRETATION [facility] XR CHEST 1 VW 2021-09-22 06:26:48 Paula Rowe [facility] HB ECG ROUTINE & RHYTHM 2021-09-22 06:17:39 Paula Rowe [facility] STRIP [facility] HOSPITAL ADMISSION 2021-09-22 06:01:[address] [facility] Name Medical [place] CONSENT/REFUSAL FOR 2021-09-22 06:00:03 Doctor Arturo [facility] DIAGNOSIS AND TREATMENT [place] [facility] DME/SUPPLY JUSTIFICATION 2021-08-01 06:01:00 Doctor Morris [facility] Name Medical [place] Plan of Care Planned Activity Planned Date Details Comments Source Future Scheduled 2024-07-31 DTAP/TDAP/TD VACCINES [facility]:00 (2 - Td or Tdap) [code Medic al Center = DTAP/TDAP/TD VACCINES (2 - Td or Tdap)] Future Scheduled 2023-11-[address] [facility] 00:00:00 Counseling and Medical Cente r Screening (12+) [code = Tobacco Cessation Counseling and Screening (12+)] Future Scheduled 2023-03-[address] [facility] 00:00:00 (Season Ended) [code = Medic al Center INFLUENZA VACCINE (Season Ended)] Future Scheduled 2022-07-[address] [facility] 00:00:00 (12+) [code = Medical Center DEPRESSION SCREENING (12+)] Future Scheduled 2018-06-[address] [facility] 00:00:00 0-64 YRS (2 - PCV) Medical C enter [code = PNEUMOCOCCAL VACCINE 0-64 YRS (2 - PCV)] Future Scheduled 2011 SHINGLES VACCINES ([address] [facility] 00:00:00 2) [code = SHINGLES Medical Center VACCINES (1 of 2)] Future Scheduled 2006 Lipid panel (procedure) [facility] 00:00:00 [code = 37533399] Medical Ce nter Future Scheduled 1982 Screening for malignant [facility] 00:00:00 neoplasm of cervix Medical C enter (procedure) [code = 478253329] Future Scheduled 1979 HEPATITIS C SCREENING [facility] 00:00:00 [code = HEPATITIS C Medical Center SCREENING] Future Scheduled 1962-03-10 COVID-19 VACCINE (#1) [facility] 00:00:00 [code = COVID-[address] VACCINE (#1)] Future Scheduled 1961 Screening for malignant [facility] 00:00:00 neoplasm of breast Medical C enter (procedure) [code = 744775618] Future Scheduled 1961 CT Colonography (combo) [facility] 00:00:00 [code = CT Colonography [facility] (combo)] Future Scheduled 1961 Screening for malignant [facility] 00:00:00 neoplasm of colon Medical Ce nter (procedure) [code = 180992909] Future Scheduled 1961 Screening for malignant [facility] 00:00:00 neoplasm of colon Medical Ce nter (procedure) [code = 196680279] Future Scheduled 1961 Screening for malignant [facility] 00:00:00 neoplasm of colon Medical Ce nter (procedure) [code = 811491604] Future Scheduled 1961 Screening for malignant [facility] 00:00:00 neoplasm of colon Medical Ce nter (procedure) [code = 390305048] Future Scheduled 1961 Sigmoidoscopy [code = [facility] Sigmoidoscopy] Medical Cente r Medication 2022-11-[address] [facility] 00:00:00 (SYNTHROID, LEVOTHROID) [facility] 50 MCG tablet [code = 521202] Encounters Start End Encounter Admission Attending Care Care Encounter Source Date/Time Date/Time Type Type Clinicians Facility Department ID 2022-08-05 Emergency [facility] [id number] Univers 00:[facility]25 [facility] 2022-11-25 2022-11-26 Inpatient ER SORAYALACY Internal [id number] SLE 02:46:00 14:00:00 [facility] 2022-11-25 2022-11-26 [facility] Tracy Johnson [facility] [id number] 02:46:[facility] 14:00:[address] [facility] 2022-11-25 2022-11-25 Travel [facility] [id number] [facility]00 [facility] 2022-09-09 2022-09-09 Emergency [facility] [id number] Univers 06:30:00 08:46:00 JOSLYN [facility] 2022-09-09 2022-09-09 Emergency [facility] [id number] Univers 06:30:00 08:46:00 Joslyn BOYD [id number] [facility] [id number] [facility] [id number] [facility] 084 Branch 2022-08-12 2022-08-12 Transition [place] Arrieta [id number] Univers 00:00:00 00:00:00 of Care Alessandra JEFFREY [id number] i [id number] [id number] [facility] 403 Branch 2022-08-05 2022-08-10 Inpatient U CARLOS [facility] ROBLES [id number] Univers 00:39:00 17:00:00 COREY sholacynthia [facility] 2022-08-05 2022-08-10 [facility] Jonas Hernandez [facility] [id number] Univers 00:39:00 17:00:00 Encounter SunnyabbiCorey [id number] ity [facility] [id number] [facility] [id number] [place] [id number] Dulce 2022-06-04 2022-06-04 Emergency X [facility] ERT [id number] Univers 20:54:00 23:53:00 GEN shipman [facility] 2022-06-04 2022-06-04 Emergency [facility] [id number] Univers 20:54:00 23:53:00 Gensilvana DE LUNAKLEBER [id number] i ty of [facility] [id number] [facility] [id number] [address] 2022-05-12 2022-05-13 Emergency [facility] ERT [id number] Univers 22:51:00 03:10:00 PAULA sholacynthia [facility] 2022-05-12 2022-05-13 Emergency [facility] [id number] Univers 22:51:00 03:10:00 Paula BOYD [id number] i ty of [facility] [id number] [facility] [id number] [address] 2022-05-02 2022-05-02 Emergency X Sanjay HENRY [facility] ERT [id number] Univers 00:17:00 02:29:00 ity of [facility] 2022-05-02 2022-05-02 Emergency Sanjay Henry [facility] [id number] Univers 00:17:00 02:29:00 Janel BOYD [id number] i ty of [place] [id number] [facility] [id number] [address] 2022-04-28 2022-04-29 Emergency [facility] ERT [id number] Univers 21:41:00 00:50:00 PAULA itcynthia of [facility] 2022-04-28 2022-04-29 Emergency [facility] [id number] Univers 21:41:00 00:50:00 Paulakasie BOYD [id number] i ty of [place] [id number] [facility] [id number] [address] 2022-03-02 2022-03-02 Transition [place] Ar[place] [id number] Univers 00:00:00 00:00:00 of Care Alessandra Garcia JEFFREY [id number] i ty of [place] [id number] [facility] [facility] [id number] [facility] [address] 2022-02-20 2022-02-27 [facility] [id number] Univers 14:58:00 17:54:00 [facility] 2022-02-20 2022-02-27 Hospital Paula Rowe 1.2.840.1 14 [id number] Univers 14:58:00 17:54:00 Encounter Kevin Lebron 350.1.13.10 ity of malini [facility] 4.2.7.2. 686 [place] [phone] [address] 2022-02-18 2022-02-18 Transition [place] Arrieta 1.2.840.114 [id number] Univers 00:00:00 00:00:00 of Care Alessandra M JEFFREY 350.1.13.10 i ty [place] [id number] [facility] [address] 2022-02-11 2022-02-17 Inpatient X SCARLETT [facility] [place] [id number] Univers 19:55:00 18:10:00 VALERIANO ity of [facility] 2022-02-11 2022-02-17 [facility] 1.2.840.1 14 [id number] Univers 19:55:00 18:10:00 Encounter Valeriano Pantoja [facility] 350.1.13.1 0 ity of [place] 4.2.7.2.686 [facility] [id number] [address] ([facility]) 2022-02-02 2022-02-02 [place] Arri[place] 1.2.840.114 [id number] Univers 00:00:00 00:00:00 of Care Alessandra JEFFREY 350.1.13.10 i ty of [place] 4.2.7.2.[address] [facility] [id number] [facility] [address] 2022-01-27 2022-01-31 Inpatient X MARY [facility] [place] [id number] Univers 20:40:00 13:51:00 ADNAN itcynthia [facility] 2022-01-27 2022-01-31 [facility] 1.2.840.1 14 [id number] Univers 20:40:00 13:51:00 Encounter Mary Peteragus BOYD 350.1.13.10 ity of [place] 4.2.7.2.686 [facility] [id number] [facility] [address] 2022-01-28 2022-01-28 Telephone [facility] 1.2.840.114 [id number] Univers 00:00:00 00:00:00 Layne HEALTH 350.1.13.10 it y of [place] 4.2.7.2.686 [facility] - [phone] Med ical [facility] [address] 2022-01-13 2022-01-13 [place] 1.2.840.114 [id number] Univers 00:00:00 00:00:00 of Care Alessandra Jose JEFFREY 350.1.13.10 i ty of [place] 4.2.7.2.686 [facility] [id number] [facility] [address] 2022-01-12 2022-01-12 Emergency [facility] ERT [id number] Univers 17:23:00 22:19:00 JOSLYN ity [facility] 2022-01-12 2022-01-12 Emergency [facility] 1.2.840.114 [id number] Univers 17:23:00 22:19:00 Joslyn BOYD 350.1.13.10 ity of [place] 4.2.7.2.686 [facility] [id number] [address] 2022-01-01 2022-01-12 Inpatient X ABU [facility] [place] [id number] Univers 21:18:00 14:06:00 umberto STACK [facility] 2022-01-01 2022-01-12 [facility] Janis Valencia [facility] 1 .2.840.114 [id number] Univers 21:18:00 14:06:00 Encounter Cory Cee 350.1.13.10 ity of [facility] Jagdeepeladio JULES 4.2.7.2.686 [facility] [id number] [facility] [address] ([facility]) 2021-12-08 2021-12-09 Emergency X FLROIDALMA [facility] ERT [id number] Univers 22:28:00 00:58:00 DUKE ity [facility] 2021-12-08 2021-12-09 Emergency [facility] 1.2.840.114 [id number] Univers 22:28:00 00:58:00 Duke BOYD 350.1.13.10 ity [facility] 4.2.7.2.686 [facility] [phone] [place] [address] 2021-09-24 2021-09-24 Transition [place] Brewer 1.2.840.114 [id number] Univers 00:00:00 00:00:00 of Care Patria JEFFREY 350.1.13.10 [place] [id number] [facility] [address] 2021-09-22 2021-09-23 Inpatient U ENE GIVENS [facility] MPU [id number] Univers 00:05:00 15:03:00 ENE GIVENS i ty of [facility] 2021-09-22 2021-09-23 Hospital Paula Rowe 1.2.840.1 14 [id number] Univers 00:05:00 15:03:00 Encounter Ene Givens 350.1.13.10 ity of [facility] 4.2.7.2.686 Compa as [id number] [facility] [address] 2021-08-01 2021-08-01 Orders Doctor KATELYN 1.2.840.114 [id number] Univers 00:00:00 00:00:00 Only Unassigned, JACKIE 350.1.13.10 ity of [place] [facility] 4.2.7.2.686 Compa as [id number] [facility] [address] 2021-07-23 2021-07-23 Office [facility] 1.2.840.114 [id number] Univers 14:15:00 14:30:00 Visit [facility] 350.1.13.10 it y [place] - [id number] [facility] [address] 2021-07-23 2021-07-23 Outpatient R SALONI [facility] [id number] Univers 14:15:00 14:15:00 LAYNE ity [facility] 2021-07-23 2021-07-23 [facility] [id number] Univers 14:15:00 14:15:00 LAYNE ity [facility] 2021-07-23 2021-07-23 Telephone [facility] 1.2.840.114 [id number] Univers 00:00:00 00:00:00 Layne REJI 350.1.13.10 i [place]2.[place] [id number] [facility] [address] 2021-06-25 2021-06-26 Emergency X [facility] ERT [id number] Univers 21:58:00 03:17:00 APARNA [facility] 2021-06-25 2021-06-26 Emergency [facility] 1.2.185.117 [id number] Univers 21:58:00 03:17:00 [facility] 350.1.13.10 [facility] 4.2.7.2.686 [facility] [id number] [facility] [address] 2021-02-19 2021-02-19 Outpatient [facility] [id number] Univers 00:00:00 00:00:00 [facility] 2020-02-01 2020-02-01 Outpatient [facility] [id number] Univers 00:00:00 00:00:00 [facility] 2019-09-01 2019-09-01 Outpatient [facility] [id number] Univers 14:41:55 23:59:00 GAB [facility] 2019-08-04 2019-08-04 Outpatient Andrea [facility] [id number] Univers 17:13:44 23:59:00 JUNE [facility] Results Test Description Test Time Test Comments Results Result Comments Source HEMOGLOBIN A1C 2022-11-26 10:39:20 Test Item Value Reference Range Interpretation Comme nts HEMOGLOBIN A1C ELECTROPHORESIS 8.0 % See_Comment H [Automated message] The system ([employer]) (test code = 3811) which generated this result transmitted ref erence range: <=5.6%. The ref erence range was not used to int erpret this result as normal/abnor mal. "The A1c is measured using a NGSP-certified method. HbA1c value equal to or greater than 6.5% as thediagnosis cutoff for diabetes. An HbA1c value of 5.7- 6.4% indicates increased risk for diabetes (prediabetes)."College Associate ID - ADMOperator ID - ADMPOC-Glucose [id number] 10:22:15 Test Item Value Reference Range Interpretation Comments POC-Glucose Meter (test 205 mg/dL 70-110 H : TE STED AT [facility] code = 1538) [address] [facility], 770 30: College Associate/Techni parag ID = [id number] for ZAHIDA COWAN A Lab Interpretation (test Abnormal code = 93612-1) [facility] [id number] 10:22:15 Test Item Value Reference Range Interpretation Comments POC-GLUCOSE METER 205 mg/dL 70-110 H : TESTED A T [facility] 6720 (BEAKER) (test code = IRVIN Mendez [facility], 1538) 40158: College Associate/Techni parag ID = [id number] for QUINN ALONSOLARZAHIDAA RAD, CHEST, 1 VIEW, NON [id number] 10:14:00Reason for exam:->sobShould this be performed at the bedside?->Yes [facility] : 1960 Sex: FFINALREPORT INDICATION: sob COMPARISON: None TECHNIQUE: Single frontal view of the chest. FINDINGS: Lungs and pleura: Trace bilateral effusions and adjacent atelectasis.Heart and mediastinum: Normal heart size. Unremarkable mediastinal contours.Osseous structures: No acute abnormality.Other: Tracheostomy. Signed: Selma Niño Verified Date/Time: 11/26/2022 10:14:47 Reading Location: [address] Reading Room COMPREHENSIVE METABOLIC PANEL 2022-11-26 06:58:15 Test Item Value Reference Range Interpretation Comments TOTAL PROTEIN 6.0 gm/dL 6.0-8.3 (BEAKER) (test code = 770) ALBUMIN (BEAKER) 3.4 g/dL 3.5-5.0 L (test code = 1145) ALKALINE 80 U/L 40-150 PHOSPHATASE (BEAKER) (test code = 346) BILIRUBIN TOTAL 0.3 mg/dL 0.2-1.2 (BEAKER) (test code = 377) SODIUM (BEAKER) 138 meq/L 136-145 (test code = 381) POTASSIUM (BEAKER) 4.2 meq/L 3.5-5.1 (test code = 379) CHLORIDE (BEAKER) 97 meq/L 98-107 L (test code = 382) CO2 (BEAKER) (test 35 meq/L 22-29 H code = 355) BLOOD UREA 30 mg/dL 7-21 H NITROGEN (BEAKER) (test code = 354) CREATININE 0.95 mg/dL 0.57-1.25 (BEAKER) (test code = 358) GLUCOSE RANDOM 269 mg/dL 70-105 H (BEAKER) (test code = 652) CALCIUM (BEAKER) 9.0 mg/dL 8.4-10.2 (test code = 697) AST (SGOT) 11 U/L 5-34 (BEAKER) (test code = 353) ALT (SGPT) 17 U/L 6-55 (BEAKER) (test code = 347) EGFR (BEAKER) 68 Interpretatio n of eGFR (test code = 1092) mL/min/1.[address] age Description sq m Result G1 Abeba l or high >=90 G2 Mildly decreased 60-89 G3a Mildl y to moderately 45-5 9 G3b Moderately to s everely 30-44 G4 Severl y decreased 15-29 G5 Kidne y failure <15Reported eGF R is based on the CKD-EPI 2021 equation that d oes not use a race coefficientEsti mated GFR is not as accur ate as Creatinine Janie cecelia in predicting glom erular filtration rate . Estimated GFR is not appl icable for dialysis patien ts College Associate ID - [id number] 06:58:15 Test Item Value Reference Range Interpretation Comments MAGNESIUM (BEAKER) (test code = 2.2 mg/dL 1.6-2.6 627) College Associate ID - ADMINCBC W/PLT COUNT & AUTO [id number] 06:28:22 Test Item Value Reference Range Interpretation Comments WHITE BLOOD CELL COUNT (BEAKER) 9.4 K/ L 3.5-10.5 (test code = 775) RED BLOOD CELL COUNT (BEAKER) 3.89 M/ L 3.93-5.22 L (test code = 761) HEMOGLOBIN (BEAKER) (test code = 10.9 GM/DL 11.2-15.7 L 410) HEMATOCRIT (BEAKER) (test code = 34.3 % 34.1-44.9 411) MEAN CORPUSCULAR VOLUME (BEAKER) 88 fL 79-95 (test code = 753) MEAN CORPUSCULAR HEMOGLOBIN 28.0 pg 25.6-32.2 (BEAKER) (test code = 751) MEAN CORPUSCULAR HEMOGLOBIN CONC 31.8 GM/DL 32.2-35.5 L (BEAKER) (test code = 752) RED CELL DISTRIBUTION WIDTH 13.4 % 11.7-14.4 (BEAKER) (test code = 412) PLATELET COUNT (BEAKER) (test 233 K/CU MM 150-450 code = 756) MEAN PLATELET VOLUME (BEAKER) 9.4 fL 9.4-12.3 (test code = 754) NUCLEATED RED BLOOD CELLS 0 /100 WBC 0-0 (BEAKER) (test code = 413) NEUTROPHILS RELATIVE PERCENT 91 % (BEAKER) (test code = 429) LYMPHOCYTES RELATIVE PERCENT 4 % (BEAKER) (test code = 430) MONOCYTES RELATIVE PERCENT 3 % (BEAKER) (test code = 431) EOSINOPHILS RELATIVE PERCENT 0 % (BEAKER) (test code = 432) BASOPHILS RELATIVE PERCENT 0 % (BEAKER) (test code = 437) NEUTROPHILS ABSOLUTE COUNT 8.53 K/ L 1.56-6.13 H (BEAKER) (test code = 670) LYMPHOCYTES ABSOLUTE COUNT 0.36 K/ L 1.18-3.74 L (BEAKER) (test code = 414) MONOCYTES ABSOLUTE COUNT (BEAKER) 0.31 K/ L 0.24-0.36 (test code = 415) EOSINOPHILS ABSOLUTE COUNT 0.00 K/ L 0.04-0.36 L (BEAKER) (test code = 416) BASOPHILS ABSOLUTE COUNT (BEAKER) 0.01 K/ L 0.01-0.08 (test code = 417) IMMATURE GRANULOCYTES-RELATIVE 1.50 % 0.00-1.00 H PERCENT (BEAKER) (test code = 2801) POCT-GLUCOSE [id number] 23:33:03 Test Item Value Reference Range Interpretation Comments POC-GLUCOSE METER 193 mg/dL 70-110 H : TESTED A T [facility] 6720 (BEAKER) (test code = [place], 1538) [address]: College Associate/Techni parag ID = [id number] for Af zaal, Sean T4, [id number] 18:42:05 Test Item Value Reference Range Interpretation Comments FREE T4 (BEAKER) (test code = 655) 1.17 ng/dL 0.70-1.48 College Associate ID - DBTSH/FREE T4 IF [id number] 18:08:13 Test Item Value Reference Range Interpretation Comments THYROID STIMULATING HORMONE 0.100 uIU/mL 0.350-4.940 L (BEAKER) (test code = 772) College Associate ID - [id number] 17:37:29 Test Item Value Reference Range Interpretation Comments MAGNESIUM (BEAKER) 2.2 mg/dL 1.6-2.6 Specimen slightly (test code = 627) hemolyzed College Associate ID - ADMINCOMPREHENSIVE METABOLIC [id number] 17:37:29 Test Item Value Reference Range Interpretation Comments TOTAL PROTEIN 6.7 gm/dL 6.0-8.3 Specimen sligh tly (BEAKER) (test hemolyzed code = 770) ALBUMIN (BEAKER) 3.7 g/dL 3.5-5.0 Specimen sl ightly (test code = 1145) hemolyzed ALKALINE 82 U/L 40-150 PHOSPHATASE (BEAKER) (test code = 346) BILIRUBIN TOTAL 0.4 mg/dL 0.2-1.2 Specimen sli ghtly (BEAKER) (test hemolyzed code = 377) SODIUM (BEAKER) 140 meq/L 136-145 (test code = 381) POTASSIUM (BEAKER) 4.4 meq/L 3.5-5.1 Specimen slightly (test code = 379) hemolyzed CHLORIDE (BEAKER) 96 meq/L 98-107 L (test code = 382) CO2 (BEAKER) (test 39 meq/L 22-29 H code = 355) BLOOD UREA 28 mg/dL 7-21 H NITROGEN (BEAKER) (test code = 354) CREATININE 1.06 mg/dL 0.57-1.25 Specimen slight ly (BEAKER) (test hemolyzed code = 358) GLUCOSE RANDOM 181 mg/dL 70-105 H (BEAKER) (test code = 652) CALCIUM (BEAKER) 9.6 mg/dL 8.4-10.2 (test code = 697) AST (SGOT) 14 U/L 5-34 Specimen slight ly (BEAKER) (test hemolyzed code = 353) ALT (SGPT) 20 U/L 6-55 Specimen slight ly (BEAKER) (test hemolyzed code = 347) EGFR (BEAKER) 60 Interpretatio n of eGFR (test code = 1092) mL/min/1.[address] age Description sq m Result G1 Abeba l or high >=90 G2 Mildly decreased 60-89 G3a Mildl y to moderately 45-5 9 G3b Moderately to s everely 30-44 G4 Severl y decreased 15-29 G5 Kidney failure <15Reported eGF R is based on the CKD-EPI 2020 equation that d oes not use a race coefficientEsti mated GFR is not as accur ate as Creatinine Janie rai in predicting glom erular filtration rate . Estimated GFR is not appl icable for dialysis patien ts College Associate ID - ADMINB-TYPE NATRIURETIC FACTOR (BNP)2022-11-25 17:37:29 Test Item Value Reference Range Interpretation Comments B-TYPE NATRIURETIC PEPTIDE (BEAKER) 35 pg/mL 0-100 (test code = 700) College Associate ID - ADMINCBC W/PLT COUNT & AUTO [id number] 17:08:37 Test Item Value Reference Range Interpretation Comments WHITE BLOOD CELL COUNT (BEAKER) 10.2 K/ L 3.5-10.5 (test code = 775) RED BLOOD CELL COUNT (BEAKER) 4.17 M/ L 3.93-5.22 (test code = 761) HEMOGLOBIN (BEAKER) (test code = 11.6 GM/DL 11.2-15.7 410) HEMATOCRIT (BEAKER) (test code = 36.9 % 34.1-44.9 411) MEAN CORPUSCULAR VOLUME (BEAKER) 89 fL 79-95 (test code = 753) MEAN CORPUSCULAR HEMOGLOBIN 27.8 pg 25.6-32.2 (BEAKER) (test code = 751) MEAN CORPUSCULAR HEMOGLOBIN CONC 31.4 GM/DL 32.2-35.5 L (BEAKER) (test code = 752) RED CELL DISTRIBUTION WIDTH 13.4 % 11.7-14.4 (BEAKER) (test code = 412) PLATELET COUNT (BEAKER) (test 243 K/CU MM 150-450 code = 756) MEAN PLATELET VOLUME (BEAKER) 9.2 fL 9.4-12.3 L (test code = 754) NUCLEATED RED BLOOD CELLS 0 /100 WBC 0-0 (BEAKER) (test code = 413) NEUTROPHILS RELATIVE PERCENT 93 % (BEAKER) (test code = 429) LYMPHOCYTES RELATIVE PERCENT 3 % (BEAKER) (test code = 430) MONOCYTES RELATIVE PERCENT 2 % (BEAKER) (test code = 431) EOSINOPHILS RELATIVE PERCENT 0 % (BEAKER) (test code = 432) BASOPHILS RELATIVE PERCENT 0 % (BEAKER) (test code = 437) NEUTROPHILS ABSOLUTE COUNT 9.42 K/ L 1.56-6.13 H (BEAKER) (test code = 670) LYMPHOCYTES ABSOLUTE COUNT 0.32 K/ L 1.18-3.74 L (BEAKER) (test code = 414) MONOCYTES ABSOLUTE COUNT (BEAKER) 0.24 K/ L 0.24-0.36 (test code = 415) EOSINOPHILS ABSOLUTE COUNT 0.00 K/ L 0.04-0.36 L (BEAKER) (test code = 416) BASOPHILS ABSOLUTE COUNT (BEAKER) 0.02 K/ L 0.01-0.08 (test code = 417) IMMATURE GRANULOCYTES-RELATIVE 1.80 % 0.00-1.00 H PERCENT (BEAKER) (test code = 2801) POCT-GLUCOSE [id number] 16:44:23 Test Item Value Reference Range Interpretation Comments POC-GLUCOSE METER 192 mg/dL 70-110 H : TESTED A T [facility] 6720 (BEAKER) (test code = [place], 1538) 356[address]: College Associate/Techni parag ID = [id number] for LAURA VIVEROS POCT-GLUCOSE [id number] 09:19:54 Test Item Value Reference Range Interpretation Comments POC-GLUCOSE METER 205 mg/dL 70-110 H : TESTED A T [facility] 6720 (BEAKER) (test code = IRVIN Mendez [place], 1538) 35136: College Associate/Techni parag ID = [id number] for CAMILLA HERNDON POCT GLUCOSE (AUTOMATED)2022-08-10 20:26:18 Test Item Value Reference Range Interpretation Comments POCT GLU (test code = 7721554439) 178 mg/dL 70-110 H Lab Interpretation (test code = Abnormal 79356-5) [facility] GLUCOSE (AUTOMATED)2022-08-10 20:26:17 Test Item Value Reference Range Interpretation Comments POCT GLU (test code = 3477867707) 134 mg/dL 70-110 H Lab Interpretation (test code = Abnormal 24618-6) [facility] GLUCOSE (AUTOMATED)2022-08-10 09:35:52 Test Item Value Reference Range Interpretation Comments POCT GLU (test code = 0539198989) 240 mg/dL 70-110 H Lab Interpretation (test code = Abnormal 10190-6) [facility] GLUCOSE (AUTOMATED)2022-08-10 06:09:42 Test Item Value Reference Range Interpretation Comments POCT GLU (test code = 4730771166) 219 mg/dL 70-110 H Lab Interpretation (test code = Abnormal 92029-9) [facility] GLUCOSE (AUTOMATED)2022-08-10 02:27:50 Test Item Value Reference Range Interpretation Comments POCT GLU (test code = 4346496698) 264 mg/dL 70-110 H Lab Interpretation (test code = Abnormal 63641-4) [facility] GLUCOSE (AUTOMATED)2022-08-09 22:32:46 Test Item Value Reference Range Interpretation Comments POCT GLU (test code = 6928600597) 327 mg/dL 70-110 H Lab Interpretation (test code = Abnormal 94129-1) [facility] GLUCOSE (AUTOMATED)2022-08-09 13:19:52 Test Item Value Reference Range Interpretation Comments POCT GLU (test code = 0673216645) 196 mg/dL 70-110 H Lab Interpretation (test code = Abnormal 51522-2) [facility] 12:10:11 Test Item Value Reference Range Interpretation Comments MAGNESIUM (test code = 3517391585) 2.5 mg/dL 1.7-2.4 H Lab Interpretation (test code = Abnormal 15572-9) [facility] METABOLIC PANEL (NA, K, CL, CO2, GLUCOSE, BUN, CREATININE, CA)2022-08-09 12:10:06 Test Item Value Reference Range Interpretation Comments NA (test code = 137 mmol/L 135-145 2131387597) K (test code = 4.3 mmol/L 3.5-5.0 6777458313) CL (test code = 101 mmol/L 98-108 9914482549) CO2 TOTAL (test code = 35 mmol/L 23-31 H 3081363102) AGAP (test code = 2-16 L 6429331838) BUN (test code = 22 mg/dL 7-23 3612421393) GLUCOSE (test code = 186 mg/dL 70-110 H 3125230062) CREATININE (test code = 0.82 mg/dL 0.50-1.04 4885370790) CALCIUM (test code = 8.2 mg/dL 8.6-10.6 L 1090999652) eGFR (test code = mL/min/1.73m2 1734348897) JENNIFFER (test code = JENNIFFER) Association of [...] tests). Lab Interpretation Abnormal (test code = 63188-3) [facility]23-[facility] 12:09:46 Test Item Value Reference Range Interpretation Comments PHOSPHORUS (test code = 7488618072) 3.2 mg/dL 2.5-5.0 Lab Interpretation (test code = Normal 19562-2) [facility] WITH [id number] 12:03:07 Test Item Value Reference Range Interpretation [...] RDW-SD (test code = 47.1 fL 39.0-49.9 82479-1) RDW-CV (test code = 14.6 % 12.0-15.5 788-0) PLT (test code = See_Comment [Automated 777-3) message] The sy stem which generated this result transmitted reference range : 166 - 358 10*3/ ?L. The reference r josselyn was not used to interpret this result as normal/abnormal . MPV (test code = 9.5 fL 9.5-12.9 63560-9) NRBC/100 WBC (test See_Comment [Automat ed code = 9365457396) message] The system which generated this result transmitted reference range : 0.0 - 10.0 /100 WBCs. The refer ence range was not u sed to interpret th is result as normal/abnormal . NRBC x10^3 (test code See_Comment [Auto mated = 0564613786) message] The s ystem which generated this result transmitted reference range : 10*3/?L. The reference range was not used to interpret this result as normal/abnormal . GRAN MAT (NEUT) % 85.8 % (test code = 770-8) IMM GRAN % (test code 2.50 % = 8144241977) LYMPH % (test code = 6.7 % 736-9) MONO % (test code = 4.8 % 5905-5) EOS % (test code = 0.1 % 713-8) BASO % (test code = 0.1 % 706-2) GRAN MAT x10^3(ANC) 7.74 10*3/uL 1.88-7.09 H (test code = 5856738505) IMM GRAN x10^3 (test 0.23 10*3/uL 0.00-0.06 H code = 0280998492) LYMPH x10^3 (test code 0.60 10*3/uL 1.32-3.29 L = 731-0) MONO x10^3 (test code 0.43 10*3/uL 0.33-0.92 = 742-7) EOS x10^3 (test code = 0.03-0.39 L 711-2) BASO x10^3 (test code 0.01-0.07 = 704-7) Lab Interpretation Abnormal (test code = 07555-4) [facility] GLUCOSE (AUTOMATED)2022-08-09 11:54:17 Test Item Value Reference Range Interpretation Comments POCT GLU (test code = 9669901625) 202 mg/dL 70-110 H Lab Interpretation (test code = Abnormal 64821-9) [facility])2022-08-09 06:19:48 Test Item Value Reference Range Interpretation Comments POCT GLU (test code = 9200814544) 231 mg/dL 70-110 H Lab Interpretation (test code = Abnormal 13653-5) [facility])2022-08-09 02:32:58 Test Item Value Reference Range Interpretation Comments POCT GLU (test code = 3590519411) 316 mg/dL 70-110 H Lab Interpretation (test code = Abnormal 40017-0) [facility] GLUCOSE (AUTOMATED)2022-08-09 02:28:52 Test Item Value Reference Range Interpretation Comments POCT GLU (test code = 9777746053) 363 mg/dL 70-110 H Lab Interpretation (test code = Abnormal 85281-2) [facility] GLUCOSE (AUTOMATED)2022-08-08 17:32:51 Test Item Value Reference Range Interpretation Comments POCT GLU (test code = 2509692337) 201 mg/dL 70-110 H Lab Interpretation (test code = Abnormal 35146-4) [facility] GLUCOSE (AUTOMATED)2022-08-08 17:32:51 Test Item Value Reference Range Interpretation Comments POCT GLU (test code = 6433360813) 251 mg/dL 70-110 H Lab Interpretation (test code = Abnormal 76053-5) [facility] GLUCOSE (AUTOMATED)2022-08-08 10:02:25 Test Item Value Reference Range Interpretation Comments POCT GLU (test code = 9988084161) 153 mg/dL 70-110 H Lab Interpretation (test code = Abnormal 29454-4) [facility] GLUCOSE (AUTOMATED)2022-08-08 06:20:09 Test Item Value Reference Range Interpretation Comments POCT GLU (test code = 6818064110) 224 mg/dL 70-110 H Lab Interpretation (test code = Abnormal 12870-5) [facility] GLUCOSE (AUTOMATED)2022-08-08 02:43:59 Test Item Value Reference Range Interpretation Comments POCT GLU (test code = 2485111829) 256 mg/dL 70-110 H Lab Interpretation (test code = Abnormal 99733-2) [facility] GLUCOSE (AUTOMATED)2022-08-07 22:28:36 Test Item Value Reference Range Interpretation Comments POCT GLU (test code = 2890283063) 273 mg/dL 70-110 H Lab Interpretation (test code = Abnormal 77043-1) [facility] 22:15:07 Test Item Value Reference Range Interpretation Comments Height (test code = in 6563159752) Weight (test code = lbs 5324443816) Systolic BP (test code = mmHg 6637401634) Diastolic BP (test code mmHg = 8402533988) Heart Rate (test code = bpm 0066685247) BSA (test code = 1.96 m2 6443525990) Ao root diam (test code 3.30 cm = 0461185273) Aortic root (test code = 3.3 cm 7425746091) Ao root annulus (test 3.3 cm code = 9564778228) LVOT diameter (test code 1.80 cm = 0500588735) LVOT area (test code = 2.60 cm2 6318004687) LVIDD (test code = 3.50 cm 2740075130) Left Ventricular End 51.9 mL Diastolic Volume by Teichholz Method (test code = 5221104) IVS (test code = 1.24 cm 0863472530) Interventricular Septum 1.24 cm Diastolic Thickness by 2D (test code = 6194512) LVPWD (test code = 1.24 cm 9946640242) PW (test code = 1.24 cm 0.6-1.4 1197284221) EF(Teich) (test code = 58.70 % 8838293028) LVIDS (test code = 2.46 cm 6214777935) Left Ventricular End 21.4 mL Systolic Volume by Teichholz Method (test code = 3129288) FS (test code = 30 % 4477811424) EF - 2D (test code = 58.70 % 66069912) LA size (test code = 2.9 cm 5067992528) MV Peak E Marva (test code 81.4 cm/s = 3140640975) MV stenosis pressure 1/2 76.6 ms time (test code = 1991970725) E wave decelartion time 0.26 s (test code = 5226227356) MV Peak A Marva (test code 87.8 cm/s = 5160748399) E/A ratio (test code = ratio 0101678369) MV Prop V (test code = 139.40 cm/s 6391292241) MV E/e' septal (test 7.4 cm/s code = 8204235048) Tapse (test code = 1.61 cm 6431955687) LVOT stroke volume (test 53.30 cm3 code = 4916640125) LVOT peak marva (test code 128.1 cm/s = 8768574109) LVOT mn grad (test code mmHg = 2775821844) AV LVOT peak gradient mmHg (test code = 8722104081) LVOT peak VTI (test code 20.9 cm = 1985983454) LV V1 mean (test code = 86.80 cm/s 8428234298) Aortic valve mean 119.8 cm/s velocity (test code = 5348792558) Ao peak marva (test code = 175.1 cm/s 4940293838) Ao VTI (test code = 28.5 cm 6274850760) AV area by cont VTI 1.9 cm2 (test code = 4575921632) AV area peak marva (test 1.9 cm2 code = 7854858903) Ao max PG (test code = 12.30 mm[Hg] 4132226428) AV peak gradient (test mmHg code = 4453469416) AV valve area (test code 1.87 cm2 = 7459094057) AV mean gradient (test mmHg code = 8303832295) Radiology Study observation (narrative) (test code = 99886-9) JENNIFFER (test code = JENNIFFER) Table formatting [...] mL of Lumason ultrasound enhancing agent used. [facility] GLUCOSE (AUTOMATED)2022-08-07 17:28:57 Test Item Value Reference Range Interpretation Comments POCT GLU (test code = 168 mg/dL 70-110 H Notifi ed Provider [id number]) Lab Interpretation (test Abnormal code = 95821-2) [facility] [id number] 14:57:11 Test Item Value Reference Range Interpretation Comments TSH (test code = See_Comment Biotin has been 8420092343) reported to cau se a negative bias, interpret resul ts relative to pat ient's use of biotin. [Automated mess age] The system [employer] generated this result transmitted ref erence range: 0.45 - 4 .70 mIU/L. The refe rence range was not u sed to interpret this result as normal/abnor mal. Lab Interpretation (test Normal code = 24114-5) [facility] GLUCOSE (AUTOMATED)2022-08-07 13:46:07 Test Item Value Reference Range Interpretation Comments POCT GLU (test code = 6668729834) 180 mg/dL 70-110 H Lab Interpretation (test code = Abnormal 30515-2) [facility] GLUCOSE (AUTOMATED)2022-08-07 12:34:16 Test Item Value Reference Range Interpretation Comments POCT GLU (test code = 7841796166) 198 mg/dL 70-110 H Lab Interpretation (test code = Abnormal 71214-4) [facility]uda[facility] [id number] 12:27:41 Test Item Value Reference Interpretation Comments Range TROPONIN I (test 0.005 ng/mL See_Comment [Automated code = 9592021528) message] The system which generated this result transmitted reference range : <=0.034. The reference range was not used to interpret this result as normal/abnormal . JENNIFFRE (test code = Reference (Normal) JENNIFFER) Range [...] biotin. Lab Interpretation Normal (test code = 93031-2) [facility] [id number] 12:24:19 Test Item Value Reference Range Interpretation Comments NT-proBNP (test code 332 pg/mL See_Comment H [Autom ated = 4085602366) message] The system which generated this result transmitted reference range : <=125. The reference range was not used to interpret this result as normal/abnormal . JENNIFFER (test code = JENNIFFER) Biotin has been reported to cause a negative bias, interpret results relative to patient's use of biotin. Lab Interpretation Abnormal (test code = 79908-5) [facility] METABOLIC PANEL (89944)2022-08-07 12:17:19 Test Item Value Reference Range Interpretation Comments NA (test code = 137 mmol/L 135-145 8563702137) K (test code = 4.3 mmol/L 3.5-5.0 0418913948) CL (test code = 103 mmol/L 98-108 1738628008) CO2 TOTAL (test code = 30 mmol/L 23-31 5687738348) AGAP (test code = 2-16 0581077617) BUN (test code = 30 mg/dL 7-23 H 5764128343) GLUCOSE (test code = 198 mg/dL 70-110 H 2853999902) CREATININE (test code = 0.93 mg/dL 0.50-1.04 5242195488) TOTAL BILI (test code = 0.4 mg/dL 0.1-1.7 3545849696) CALCIUM (test code = 8.3 mg/dL 8.6-10.6 L 8106239944) T PROTEIN (test code = 6.0 g/dL 6.3-8.2 L 0782018229) ALBUMIN (test code = 3.2 g/dL 3.5-5.0 L 7774840401) ALK PHOS (test code = 70 U/L 34-122 1555757435) ALTv (test code = 23 U/L 5-35 1742-6) AST(SGOT) (test code = 22 U/L 13-40 3885186357) eGFR (test code = mL/min/1.73m2 4094863907) JENNIFFER (test code = JENNIFFER) Association of [...] tests). Lab Interpretation Abnormal (test code = 66158-7) [facility]20[facility]-13 12:17:19 Test Item Value Reference Range Interpretation Comments MAGNESIUM (test code = 8842778591) 2.4 mg/dL 1.7-2.4 Lab Interpretation (test code = Normal 33722-8) [facility]uda[facility]OS[facility]2023-01-13 12:16:59 Test Item Value Reference Range Interpretation Comments PHOSPHORUS (test code = 6613985101) 3.3 mg/dL 2.5-5.0 Lab Interpretation (test code = Normal 13494-8) [facility] BudaCB WITH [id number] 12:16:18 Test Item Value Reference Range Interpretation [...] (test code = 50.2 fL 39.0-49.9 H 47458-2) RDW-CV (test code = 15.1 % 12.0-15.5 788-0) PLT (test code = See_Comment [Automated 777-3) message] The system which generated this result transmit alden reference range : 166 - 358 10*3/ ?L. The reference range was not u sed to interpret th is result as normal/abnormal . MPV (test code = 10.0 fL 9.5-12.9 72401-2) NRBC/100 WBC (test See_Comment [Automat ed code = 8475479087) message] The system which generated this result transmit alden reference range : 0.0 - 10.0 /100 WBCs. The reference range was not used to interpret this result as normal/abnormal . NRBC x10^3 (test code See_Comment [Auto mated = 3729335761) message] The system which generated this result transmit alden reference range : 10*3/?L. The reference range was not used to interpret this result as normal/abnormal . GRAN MAT (NEUT) % 87.7 % (test code = 770-8) IMM GRAN % (test code 1.10 % = 1662935865) LYMPH % (test code = 7.7 % 736-9) MONO % (test code = 3.4 % 5905-5) EOS % (test code = 0.0 % 713-8) BASO % (test code = 0.1 % 706-2) GRAN MAT x10^3(ANC) 11.83 10*3/uL 1.88-7.09 H (test code = 0119302233) IMM GRAN x10^3 (test 0.15 10*3/uL 0.00-0.06 H code = 5634104445) LYMPH x10^3 (test code 1.04 10*3/uL 1.32-3.29 L = 731-0) MONO x10^3 (test code 0.46 10*3/uL 0.33-0.92 = 742-7) EOS x10^3 (test code = 0.03-0.39 L 711-2) BASO x10^3 (test code 0.01-0.07 = 704-7) Lab Interpretation Abnormal (test code = 11599-2) [facility] UNCONJUGATED/BILI [id number] 12:16:18 Test Item Value Reference Range Interpretation Comments BILI CONJ (test code = 1601228434) 0.0 mg/dL 0.0-0.3 BILI UNCON (test code = 9185742288) 0.2 mg/dL 0.1-1.1 Lab Interpretation (test code = Normal 37959-3) [facility] GLUCOSE (AUTOMATED)2022-08-07 10:20:14 Test Item Value Reference Range Interpretation Comments POCT GLU (test code = 9132140404) 227 mg/dL 70-110 H Lab Interpretation (test code = Abnormal 37805-7) [facility] GLUCOSE (AUTOMATED)2022-08-07 05:43:17 Test Item Value Reference Range Interpretation Comments POCT GLU (test code = 7120535084) 162 mg/dL 70-110 H Lab Interpretation (test code = Abnormal 48337-5) [facility] GLUCOSE (AUTOMATED)2022-08-07 02:28:42 Test Item Value Reference Range Interpretation Comments POCT GLU (test code = 3982932299) 229 mg/dL 70-110 H Lab Interpretation (test code = Abnormal 17610-7) [facility] GLUCOSE (AUTOMATED)2022-08-06 17:18:17 Test Item Value Reference Range Interpretation Comments POCT GLU (test code = 3958948675) 223 mg/dL 70-110 H Lab Interpretation (test code = Abnormal 95888-9) [facility] BudaLamdic Acid Whole [id number] 13:38:44 Test Item Value Reference Range Interpretation Comments LACTIC ACID (test code = 1.93 mmol/L 0.50-2.20 3273403689) Lab Interpretation (test code = Normal 94456-7) [facility] GLUCOSE (AUTOMATED)2022-08-06 13:29:26 Test Item Value Reference Range Interpretation Comments POCT GLU (test code = 0759190156) 261 mg/dL 70-110 H Lab Interpretation (test code = Abnormal 33533-3) [facility]udaTROPONIN [id number] 12:40:18 Test Item Value Reference Interpretation Comments Range TROPONIN I (test 0.002 ng/mL See_Comment [Automated code = 4648199925) message] The system which generated this result [...] biotin. Lab Interpretation Normal (test code = 70816-3) [facility]udaN-[facility]MIN[facility] [id number] 12:37:16 Test Item Value Reference Range Interpretation Comments NT-proBNP (test code 480 pg/mL See_Comment H [Autom ated = 2764240830) message] The system which generated this result transmitted reference range : <=125. The reference range was not used to interpret this result as normal/abnormal . JENNIFFER (test code = JENNIFFER) Biotin has been reported to cause a negative bias, interpret results relative to patient's use of biotin. Lab Interpretation Abnormal (test code = 02403-8) [facility]udaCOMP. METABOLIC PANEL (04462)2022-08-06 12:28:53 Test Item Value Reference Range Interpretation Comments NA (test code = 136 mmol/L 135-145 2553217218) K (test code = 4.3 mmol/L 3.5-5.0 7611419530) CL (test code = 99 mmol/L 98-108 9226230688) CO2 TOTAL (test code = 36 mmol/L 23-31 H 5255859454) AGAP (test code = 2-16 L 6019105610) BUN (test code = 30 mg/dL 7-23 H 8661130751) GLUCOSE (test code = 246 mg/dL 70-110 H 2779129087) CREATININE (test code = 0.94 mg/dL 0.50-1.04 2020198567) TOTAL BILI (test code = 0.5 mg/dL 0.1-1.3 3549907605) CALCIUM (test code = 8.6 mg/dL 8.6-10.6 3260509198) T PROTEIN (test code = 5.9 g/dL 6.3-8.2 L 0985537519) ALBUMIN (test code = 3.2 g/dL 3.5-5.0 L 3034724173) ALK PHOS (test code = 81 U/L 34-122 9461794365) ALTv (test code = 24 U/L 5-35 1742-6) AST(SGOT) (test code = 23 U/L 13-40 9703114918) eGFR (test code = mL/min/1.73m2 7614713594) JENNIFFER (test code = JENNIFFER) Association of [...] tests). Lab Interpretation Abnormal (test code = 74971-9) [facility]2023-01-12 12:28:53 Test Item Value Reference Range Interpretation Comments MAGNESIUM (test code = 6321846767) 2.2 mg/dL 1.7-2.4 Lab Interpretation (test code = Normal 81001-9) [facility]2023-01-12 12:28:33 Test Item Value Reference Range Interpretation Comments PHOSPHORUS (test code = 5234852595) 2.9 mg/dL 2.5-5.0 Lab Interpretation (test code = Normal 06065-1) [facility] BudaCREATINE [id number] 12:28:13 Test Item Value Reference Range Interpretation Comments CK (test code = 6954855448) 21 U/L 33-194 L Lab Interpretation (test code = Abnormal 52257-1) [facility] GLUCOSE (AUTOMATED)2022-08-06 11:29:35 Test Item Value Reference Range Interpretation Comments POCT GLU (test code = 3065915694) 275 mg/dL 70-110 H Lab Interpretation (test code = Abnormal 63885-9) [facility] GLUCOSE (AUTOMATED)2022-08-06 06:56:17 Test Item Value Reference Range Interpretation Comments POCT GLU (test code = 9505066634) 248 mg/dL 70-110 H Lab Interpretation (test code = Abnormal 67600-5) [facility] GLUCOSE (AUTOMATED)2022-08-06 02:34:33 Test Item Value Reference Range Interpretation Comments POCT GLU (test code = 0223788008) 255 mg/dL 70-110 H Lab Interpretation (test code = Abnormal 19560-3) [facility] GLUCOSE (AUTOMATED)2022-08-05 23:01:47 Test Item Value Reference Range Interpretation Comments POCT GLU (test code = 9636867440) 277 mg/dL 70-110 H Lab Interpretation (test code = Abnormal 15810-7) [facility]udaTROPONIN [id number] 22:36:41 Test Item Value Reference Interpretation Comments Range TROPONIN I (test 0.001 ng/mL See_Comment [Automated code = 5946144407) message] The system which generated this result [...] biotin. Lab Interpretation Normal (test code = 98679-1) [facility] GLUCOSE (AUTOMATED)2022-08-05 17:57:05 Test Item Value Reference Range Interpretation Comments POCT GLU (test code = 9744233020) 306 mg/dL 70-110 H Lab Interpretation (test code = Abnormal 54250-7) [facility] GLUCOSE (AUTOMATED)2022-08-05 13:44:12 Test Item Value Reference Range Interpretation Comments POCT GLU (test code = 4768255098) 376 mg/dL 70-110 H Lab Interpretation (test code = Abnormal 68211-8) [facility]udaTROPONIN [id number] 04:02:57 Test Item Value Reference Interpretation Comments Range TROPONIN I (test 0.001 ng/mL See_Comment [Automated code = 2995774302) message] The system which generated this result [...] biotin. Lab Interpretation Normal (test code = 73798-8) [facility]uda[facility] [id number] 03:59:58 Test Item Value Reference Range Interpretation Comments NT-proBNP (test code 100 pg/mL See_Comment [Autom ated = 4831949254) message] The system which generated this result transmitted reference range : <=125. The reference range was not used to interpret this result as normal/abnormal . JENNIFFER (test code = JENNIFFER) Biotin has been reported to cause a negative bias, interpret results relative to patient's use of biotin. Lab Interpretation Normal (test code = 36970-3) [facility]. METABOLIC PANEL (20434)2022-06-05 03:50:53 Test Item Value Reference Range Interpretation Comments NA (test code = 139 mmol/L 135-145 6059690305) K (test code = 5.0 mmol/L 3.5-5.0 1859847901) CL (test code = 96 mmol/L 98-108 L 7601809689) CO2 TOTAL (test code = 38 mmol/L 23-31 H 6470064093) AGAP (test code = 2-16 0745657494) BUN (test code = 19 mg/dL 7-23 9607181995) GLUCOSE (test code = 186 mg/dL 70-110 H 0291450487) CREATININE (test code = 0.83 mg/dL 0.50-1.04 2734570787) TOTAL BILI (test code = 0.8 mg/dL 0.1-1.1 4299548044) CALCIUM (test code = 8.9 mg/dL 8.6-10.6 4863822520) T PROTEIN (test code = 7.4 g/dL 6.3-8.2 7171979659) ALBUMIN (test code = 4.3 g/dL 3.5-5.0 8874459850) ALK PHOS (test code = 102 U/L 34-122 8898985962) ALTv (test code = 33 U/L 5-35 2-6) AST(SGOT) (test code = 40 U/L 13-40 9641807982) eGFR (test code = mL/min/1.73m2 5489279030) JENNIFFER (test code = JENNIFFER) Association of [...] tests). Lab Interpretation Abnormal (test code = 52903-9) [facility] WITH [id number] 03:35:15 Test Item Value Reference Range Interpretation Comments WBC (test code = See_Comment [Automated 1890-2) message] The sy stem which generated this result transmitted reference range : 4.30 - 11.10 10*3/?L. The reference range was not used to interpret this result as normal/abnormal . RBC (test code = See_Comment [Automated 660-8) message] The sy stem which generated this [...] RDW-SD (test code = 49.0 fL 39.0-49.9 09022-1) RDW-CV (test code = 15.4 % 12.0-15.5 788-0) PLT (test code = See_Comment [Automated 777-3) message] The sy stem which generated this result transmitted reference range : 166 - 358 10*3/ ?L. The reference r josselyn was not used to interpret this result as normal/abnormal . MPV (test code = 9.0 fL 9.5-12.9 L 37954-7) NRBC/100 WBC (test See_Comment [Automat ed code = 0818958813) message] The system which generated this result transmitted reference range : 0.0 - 10.0 /100 WBCs. The refer ence range was not u sed to interpret th is result as normal/abnormal . NRBC x10^3 (test code See_Comment [Auto mated = 8490620866) message] The s ystem which generated this result transmitted reference range : 10*3/?L. The reference range was not used to interpret this result as normal/abnormal . GRAN MAT (NEUT) % 85.5 % (test code = 770-8) IMM GRAN % (test code 0.60 % = 1777450020) LYMPH % (test code = 7.7 % 736-9) MONO % (test code = 4.0 % 5905-5) EOS % (test code = 1.6 % 713-8) BASO % (test code = 0.6 % 706-2) GRAN MAT x10^3(ANC) 8.05 10*3/uL 1.88-7.09 H (test code = 3151192164) IMM GRAN x10^3 (test 0.06 10*3/uL 0.00-0.06 code = 8146439933) LYMPH x10^3 (test code 0.73 10*3/uL 1.32-3.29 L = 731-0) MONO x10^3 (test code 0.38 10*3/uL 0.33-0.92 = 742-7) EOS x10^3 (test code = 0.15 10*3/uL 0.03-0.39 711-2) BASO x10^3 (test code 0.06 10*3/uL 0.01-0.07 = 704-7) Lab Interpretation Abnormal (test code = 21516-7) [facility]uda[facility] [id number] 06:26:12 Test Item Value Reference Interpretation Comments Range TROPONIN I (test 0.002 ng/mL See_Comment [Automated code = 0534556101) message] The system which generated this result [...] biotin. Lab Interpretation Normal (test code = 14525-5) [facility]uda[facility] [id number] 06:23:11 Test Item Value Reference Range Interpretation Comments NT-proBNP (test code 81 pg/mL See_Comment [Autom ated = 0650461648) message] The system which generated this result transmitted reference range : <=125. The reference range was not used to interpret this result as normal/abnormal . JENNIFFER (test code = JENNIFFER) Biotin has been reported to cause a negative bias, interpret results relative to patient's use of biotin. Lab Interpretation Normal (test code = 93097-7) [facility]udaAC PAN[facility] 21 + LACTIC [id number] 06:21:05 Test Item Value Reference Range Interpretation Comments PH (test code = 7.32-7.42 L 4137122975) PCO2 CELIA (test code = See_Comment H [Auto mated 7288160066) message] The sy stem which generated this result transmitted reference range : 41 - 51 mmHg. The reference range was not used to interpret this result as normal/abnormal . PO2 CELIA (test code = See_Comment L [Autom ated 7175744455) message] The sy stem which generated this result transmitted reference range : 25 - 40 mmHg. The reference range was not used to interpret this result as normal/abnormal . HCO3 CELIA (test code = See_Comment H [Auto mated 6465347829) message] The sy stem which generated this result transmitted reference range : 24 - 28 mEq/L. The reference range was not used to interpret this result as normal/abnormal . AC VBE(BEAKER) (test mEq/L code = 5637799115) THB CELIA (test code = 12.3 g/dL 12-16 5837519451) %O2HB CELIA (test code = 38.2 % 52-63 L 8249754342) %COHB CELIA (test code = 0.7 % 0-1.5 3787472151) %METHB CELIA (test code = 0.3 % 0.4-1.5 L 8871827993) VOL%O2 CELIA (test code = 6.6 % 6-12 6295890305) NA (test code = 138 mmol/L 135-145 9986679796) K+ (test code = 4.2 mmol/L 3.5-5 7923058509) AC CA IONZ (test code = 4.70 mg/dL 4.5-5.3 5955322509) GLUCOSE (test code = 178 mg/dL 70-110 H 7962785064) LACTIC ACID (test code 1.11 mmol/L 0.5-2.2 = 6669979750) Lab Interpretation Abnormal (test code = 25351-1) [facility]. METABOLIC PANEL (31583)2022-05-02 06:14:48 Test Item Value Reference Range Interpretation Comments NA (test code = 140 mmol/L 135-145 3554036385) K (test code = 4.4 mmol/L 3.5-5 3342941637) CL (test code = 97 mmol/L 98-108 L 7397415105) CO2 TOTAL (test code = 35 mmol/L 23-31 H 8044689316) AGAP (test code = 2-16 2719143304) BUN (test code = 23 mg/dL 7-23 6576376034) GLUCOSE (test code = 185 mg/dL 70-110 H 5960736190) CREATININE (test code = 1.16 mg/dL 0.5-1.04 H 1282011096) TOTAL BILI (test code = 0.4 mg/dL 0.1-1.8 6824726096) CALCIUM (test code = 9.4 mg/dL 8.6-10.6 5138758072) T PROTEIN (test code = 7.3 g/dL 6.3-8.2 3023131872) ALBUMIN (test code = 4.4 g/dL 3.5-5 7348316768) ALK PHOS (test code = 112 U/L 34-122 0418131124) ALTv (test code = 47 U/L 5-35 H 1742-6) AST(SGOT) (test code = 47 U/L 13-40 H 8483465208) eGFR (test code = mL/min/1.73m2 9471531554) JENNIFFER (test code = EJNNIFFER) Association of Glomerular Filtration Rate (GFR) and [...] tests). Lab Interpretation Abnormal (test code = 87036-4) [facility] Test Item Value Reference Range Interpretation Comments MAGNESIUM (test code = 5687299095) 2.5 mg/dL 1.7-2.4 H Lab Interpretation (test code = Abnormal 03867-2) [facility] acute hospital WITH [id number] 05:53:47 Test Item Value Reference Range Interpretation [...] RDW-SD (test code = 47.2 fL 39-49.9 57020-7) RDW-CV (test code = 14.8 % 12-15.5 788-0) PLT (test code = See_Comment [Automated 777-3) message] The sy stem which generated this result transmitted reference range : 166 - 358 10*3/ ?L. The reference r josselyn was not used to interpret this result as normal/abnormal . MPV (test code = 9.1 fL 9.5-12.9 L 78129-7) NRBC/100 WBC (test See_Comment [Automat ed code = 8856653424) message] The system which generated this result transmitted reference range : 0.0 - 10.0 /100 WBCs. The refer ence range was not u sed to interpret th is result as normal/abnormal . NRBC x10^3 (test code See_Comment [Auto mated = 2960940014) message] The s [employer] which generated this result transmitted reference range : 10*3/?L. The reference range was not used to interpret this result as normal/abnormal . GRAN MAT (NEUT) % 82.2 % (test code = 770-8) IMM GRAN % (test code 0.40 % = 8248533816) LYMPH % (test code = 10.2 % 736-9) MONO % (test code = 4.4 % 5905-5) EOS % (test code = 1.8 % 713-8) BASO % (test code = 1.0 % 706-2) GRAN MAT x10^3(ANC) 6.37 10*3/uL 1.88-7.09 (test code = 1300211597) IMM GRAN x10^3 (test 0.03 10*3/uL 0-0.06 code = 2646077894) LYMPH x10^3 (test code 0.79 10*3/uL 1.32-3.29 L = 731-0) MONO x10^3 (test code 0.34 10*3/uL 0.33-0.92 = 742-7) EOS x10^3 (test code = 0.14 10*3/uL 0.03-0.39 711-2) BASO x10^3 (test code 0.08 10*3/uL 0.01-0.07 H = 704-7) Lab Interpretation Abnormal (test code = 13983-4) [facility] [id number] 03:36:53 Test Item Value Reference Range Interpretation Comments NT-proBNP (test code 102 pg/mL See_Comment [Autom ated = 1937036871) message] The system which generated this result transmitted reference range : <=125. The reference range was not used to interpret this result as normal/abnormal . JENNIFFER (test code = JENNIFFER) Biotin has been reported to cause a negative bias, interpret results relative to patient's use of biotin. Lab Interpretation Normal (test code = 75994-9) [facility]udaTR[facility] [id number] 03:23:03 Test Item Value Reference Interpretation Comments Range TROPONIN I (test See_Comment [Automated code = 1592872813) message] The system which generated this result [...] biotin. Lab Interpretation Normal (test code = 02613-5) [facility]. METABOLIC PANEL (24945)2022-04-29 03:11:22 Test Item Value Reference Range Interpretation Comments NA (test code = 139 mmol/L 135-145 7971462118) K (test code = 4.6 mmol/L 3.5-5 3993533370) CL (test code = 94 mmol/L 98-108 L 6010775942) CO2 TOTAL (test code = 36 mmol/L 23-31 H 0340904929) AGAP (test code = 2-16 2176990470) BUN (test code = 23 mg/dL 7-23 3746829135) GLUCOSE (test code = 271 mg/dL 70-110 H 1147902746) CREATININE (test code = 0.91 mg/dL 0.5-1.04 5894447919) TOTAL BILI (test code = 0.5 mg/dL 0.1-1.6 3605725634) CALCIUM (test code = 9.3 mg/dL 8.6-10.6 8048176873) T PROTEIN (test code = 7.3 g/dL 6.3-8.2 5490035315) ALBUMIN (test code = 4.5 g/dL 3.5-5 1517570747) ALK PHOS (test code = 137 U/L 34-122 H 9169263178) ALTv (test code = 39 U/L 5-35 H 1742-6) AST(SGOT) (test code = 34 U/L 13-40 0088837974) eGFR (test code = mL/min/1.73m2 3452836556) JENNIFFER (test code = JENNIFFER) Association of [...] tests). Lab Interpretation Abnormal (test code = 34247-8) [facility]udaACTIV[facility] PART[facility] THRMPLAS [id number] 03:09:40 Test Item Value Reference Range Interpretation Comments APTT Patient (test See_Comment [Automat ed code = 3173-2) message] The system which generated this result transmitted reference range : 23 - 38 Seconds . The reference range was not used to interpr et this result as normal/abnormal . JENNIFFER (test code = JENNIFFER) The [facility] patient population mean normal value for aPTT is 30 seconds. Lab Interpretation Normal (test code = 93195-5) [facility]uda[facility]HROM[facility] / [id number] 03:07:39 Test Item Value Reference Range Interpretation [...] tions. Lab Interpretation (test Normal code = 23290-0) General acute hospital WITH [id number] 02:58:01 Test Item Value Reference Range Interpretation Comments WBC (test code = See_Comment H [Automated 5790-2) message] The system which generated this result transmit alden reference range : 4.30 - 11.10 10*3/?L. The reference range was not used to interpret this result as normal/abnormal . RBC (test code = See_Comment [Automated 789-8) message] The system which generated [...] RDW-SD (test code = 47.9 fL 39-49.9 96587-3) RDW-CV (test code = 14.8 % 12-15.5 788-0) PLT (test code = See_Comment [Automated 777-3) message] The system which generated this result transmit alden reference range : 166 - 358 10*3/ ?L. The reference range was not u sed to interpret th is result as normal/abnormal . MPV (test code = 9.0 fL 9.5-12.9 L 14288-8) NRBC/100 WBC (test See_Comment [Automat ed code = 3388228583) message] The system which generated this result transmit alden reference range : 0.0 - 10.0 /100 WBCs. The reference range was not used to interpret this result as normal/abnormal . NRBC x10^3 (test code See_Comment [Auto mated = 0200146627) message] The system which generated this result transmit alden reference range : 10*3/?L. The reference range was not used to interpret this result as normal/abnormal . GRAN MAT (NEUT) % 85.4 % (test code = 770-8) IMM GRAN % (test code 0.40 % = 7517429417) LYMPH % (test code = 7.5 % 736-9) MONO % (test code = 5.0 % 5905-5) EOS % (test code = 1.1 % 713-8) BASO % (test code = 0.6 % 706-2) GRAN MAT x10^3(ANC) 10.20 10*3/uL 1.88-7.09 H (test code = 5157373361) IMM GRAN x10^3 (test 0.05 10*3/uL 0-0.06 code = 9241505961) LYMPH x10^3 (test code 0.89 10*3/uL 1.32-3.29 L = 731-0) MONO x10^3 (test code 0.60 10*3/uL 0.33-0.92 = 742-7) EOS x10^3 (test code = 0.13 10*3/uL 0.03-0.39 711-2) BASO x10^3 (test code 0.07 10*3/uL 0.01-0.07 = 704-7) Lab Interpretation Abnormal (test code = 77527-4) [facility] GLUCOSE (AUTOMATED)2022-02-27 20:32:53 Test Item Value Reference Range Interpretation Comments POCT GLU (test code = 0701778405) 236 mg/dL 70-110 H Lab Interpretation (test code = Abnormal 80537-3) [facility] GLUCOSE (AUTOMATED)2022-02-27 16:22:28 Test Item Value Reference Range Interpretation Comments POCT GLU (test code = 1880138402) 242 mg/dL 70-110 H Lab Interpretation (test code = Abnormal 63158-2) [facility] GLUCOSE (AUTOMATED)2022-02-27 12:34:52 Test Item Value Reference Range Interpretation Comments POCT GLU (test code = 0806599836) 195 mg/dL 70-110 H Lab Interpretation (test code = Abnormal 36715-1) [facility] GLUCOSE (AUTOMATED)2022-02-26 21:43:40 Test Item Value Reference Range Interpretation Comments POCT GLU (test code = 0799822231) 315 mg/dL 70-110 H Lab Interpretation (test code = Abnormal 49912-4) [facility] GLUCOSE (AUTOMATED)2022-02-26 17:51:09 Test Item Value Reference Range Interpretation Comments POCT GLU (test code = 7418556504) 316 mg/dL 70-110 H Lab Interpretation (test code = Abnormal 89917-7) [facility] GLUCOSE (AUTOMATED)2022-02-26 14:27:56 Test Item Value Reference Range Interpretation Comments POCT GLU (test code = 3569102966) 226 mg/dL 70-110 H Lab Interpretation (test code = Abnormal 97090-0) [facility]udaBLO[facility] C[facility] [id number] 10:01:38 Test Item Value Reference Range Interpretation Comments Blood Culture-Aerobic No organisms No growth Previo us (test code = 00486-7) isolated prelim inary verified result was Culture [...] Culture-Anaerobic isolated preliminar y (test code = 45176-7) verifi ed result was Culture In Progress [...] CDT Lab Interpretation Normal (test code = 22902-4) [facility] GLUCOSE (AUTOMATED)2022-02-26 01:34:43 Test Item Value Reference Range Interpretation Comments POCT GLU (test code = 4037452831) 253 mg/dL 70-110 H Lab Interpretation (test code = Abnormal 99456-8) [facility] GLUCOSE (AUTOMATED)2022-02-25 20:41:07 Test Item Value Reference Range Interpretation Comments POCT GLU (test code = 4652001445) 260 mg/dL 70-110 H Lab Interpretation (test code = Abnormal 09992-8) [facility] GLUCOSE (AUTOMATED)2022-02-25 16:40:46 Test Item Value Reference Range Interpretation Comments POCT GLU (test code = 3887658492) 245 mg/dL 70-110 H Lab Interpretation (test code = Abnormal 71508-6) [facility] Arterial Blood Gas.2022-02-25 14:15:07 Test Item Value Reference Range Interpretation Comments PH (test code = 2) 7.35-7.45 H PCO2 (test code = See_Comment H [Automate d message] 9037026407) The system [employer] generated this result transmitted ref erence range: 35 - 45 mmHg. The reference r josselyn was not used to interpret this result as normal/abnor mal. PO2 (test code = See_Comment [Automated message] 8290280752) The system [employer] generated this result transmitted ref erence range: 80 - 100 mmHg. The reference r josselyn was not used to interpret this result as normal/abnor mal. HCO3 (test code = See_Comment H [Automate d message] 8103015063) The system [employer] generated this result transmitted ref erence range: 22 - 26 mEq/L. The reference r josselyn was not used to interpret this result as normal/abnor mal. BE (test code = See_Comment H [Automated message] 7381903420) The system [employer] generated this result transmitted ref erence range: -3.0 - 3 .0 mEq/L. The refe rence range was not u sed to interpret this result as normal/abnor mal. Lab Interpretation (test Abnormal code = 41118-3) [facility] GLUCOSE (AUTOMATED)2022-02-25 12:53:11 Test Item Value Reference Range Interpretation Comments POCT GLU (test code = 0675350858) 194 mg/dL 70-110 H Lab Interpretation (test code = Abnormal 87180-2) [facility] METABOLIC PANEL (NA, K, CL, CO2, GLUCOSE, BUN, CREATININE, CA)2022-02-25 12:18:22 Test Item Value Reference Range Interpretation Comments NA (test code = 135 mmol/L 135-145 8427659714) K (test code = 3.5 mmol/L 3.5-5 1636233686) CL (test code = 97 mmol/L 98-108 L 1623057350) CO2 TOTAL (test code = 37 mmol/L 23-31 H 2832730042) AGAP (test code = 2-16 L 7814413526) BUN (test code = 36 mg/dL 7-23 H 3951020462) GLUCOSE (test code = 172 mg/dL 70-110 H 1701950110) CREATININE (test code = 1.57 mg/dL 0.5-1.04 H 5611167877) CALCIUM (test code = 9.0 mg/dL 8.6-10.6 3921303388) eGFR (test code = mL/min/1.73m2 2912347986) JENNIFFER (test code = JENNIFFER) Association of [...] tests). Lab Interpretation Abnormal (test code = 63339-7) [facility] 12:18:22 Test Item Value Reference Range Interpretation Comments MAGNESIUM (test code = 5128592683) 1.7 mg/dL 1.7-2.4 Lab Interpretation (test code = Normal 59039-4) [facility]22-[facility] 12:18:22 Test Item Value Reference Range Interpretation Comments PHOSPHORUS (test code = 6448729871) 2.7 mg/dL 2.5-5 Lab Interpretation (test code = Normal 12026-9) [facility] GLUCOSE (AUTOMATED)2022-02-25 01:26:19 Test Item Value Reference Range Interpretation Comments POCT GLU (test code = 7563421601) 180 mg/dL 70-110 H Lab Interpretation (test code = Abnormal 78159-7) [facility] GLUCOSE (AUTOMATED)2022-02-24 20:51:23 Test Item Value Reference Range Interpretation Comments POCT GLU (test code = 2496351170) 206 mg/dL 70-110 H Lab Interpretation (test code = Abnormal 38907-7) [facility] Ar[facility].2022-02-24 17:04:22 Test Item Value Reference Range Interpretation Comments PH (test code = 2) 7.35-7.45 H PCO2 (test code = See_Comment [Automate d message] 8975391600) The system [employer] generated this result transmitted ref erence range: 35 - 45 mmHg. The reference r josselyn was not used to interpret this result as normal/abnor mal. PO2 (test code = See_Comment H [Automated message] 1526811058) The system [employer] generated this result transmitted ref erence range: 80 - 100 mmHg. The reference r josselyn was not used to interpret this result as normal/abnor mal. HCO3 (test code = See_Comment H [Automate d message] 0954857787) The system [employer] generated this result transmitted ref erence range: 22 - 26 mEq/L. The reference r josselyn was not used to interpret this result as normal/abnor mal. BE (test code = See_Comment H [Automated message] 9083754192) The system [employer] generated this result transmitted ref erence range: -3.0 - 3 .0 mEq/L. The refe rence range was not u sed to interpret this result as normal/abnor mal. Lab Interpretation (test Abnormal code = 24118-4) [facility] GLUCOSE (AUTOMATED)2022-02-24 17:00:46 Test Item Value Reference Range Interpretation Comments POCT GLU (test code = 7457799964) 230 mg/dL 70-110 H Lab Interpretation (test code = Abnormal 27190-7) [id number]58 Test Item Value Reference Interpretation Comments Range TROPONIN I (test 0.002 ng/mL See_Comment [Automated code = 9000745570) message] The system which generated this result [...] biotin. Lab Interpretation Normal (test code = 17679-6) [facility] GLUCOSE (AUTOMATED)2022-02-24 13:24:56 Test Item Value Reference Range Interpretation Comments POCT GLU (test code = 3881917348) 252 mg/dL 70-110 H Lab Interpretation (test code = Abnormal 76821-5) [facility] (NA, K, CL, CO2, GLUCOSE, BUN, CREATININE, CA)2022-02-24 13:21:38 Test Item Value Reference Range Interpretation Comments NA (test code = 138 mmol/L 135-145 6658746606) K (test code = 4.3 mmol/L 3.5-5 1361867213) CL (test code = 94 mmol/L 98-108 L 3730622419) CO2 TOTAL (test code = 39 mmol/L 23-31 H 6743678167) AGAP (test code = 2-16 4595425647) BUN (test code = 31 mg/dL 7-23 H 0331366509) GLUCOSE (test code = 237 mg/dL 70-110 H 8007926807) CREATININE (test code = 1.46 mg/dL 0.5-1.04 H 0185269913) CALCIUM (test code = 9.2 mg/dL 8.6-10.6 4420778636) eGFR (test code = mL/min/1.73m2 3502984417) JENNIFFER (test code = JENNIFFER) Association of [...] tests). Lab Interpretation Abnormal (test code = 30934-0) [facility]udaLactic Acid Whole [id number] 03:18:42 Test Item Value Reference Range Interpretation Comments LACTIC ACID (test code = 0.92 mmol/L 0.5-2.2 5691901691) Lab Interpretation (test code = Normal 27565-5) [facility] GLUCOSE (AUTOMATED)2022-02-24 01:21:36 Test Item Value Reference Range Interpretation Comments POCT GLU (test code = 4641025901) 200 mg/dL 70-110 H Lab Interpretation (test code = Abnormal 79370-8) [facility] GLUCOSE (AUTOMATED)2022-02-23 22:45:38 Test Item Value Reference Range Interpretation Comments POCT GLU (test code = 2596888122) 246 mg/dL 70-110 H Lab Interpretation (test code = Abnormal 47263-6) [facility] GLUCOSE (AUTOMATED)2022-02-23 21:47:33 Test Item Value Reference Range Interpretation Comments POCT GLU (test code = 261 mg/dL 70-110 H Notifi ed Provider 7222668367) Lab Interpretation (test Abnormal code = 34432-0) [facility]udaAC Panel 20 + Lactic [id number] 18:40:55 Test Item Value Reference Range Interpretation Comments PH (test code = 2) 7.35-7.45 PCO2 (test code = See_Comment H [Automate d 1937916544) message] The sy stem which generated this result transmitted reference range : 35 - 45 mmHg. The reference range was not used to interpret this result as normal/abnormal . PO2 (test code = See_Comment H [Automated 0065488974) message] The sy stem which generated this result transmitted reference range : 80 - 100 mmHg. The reference range was not used to interpret this result as normal/abnormal . HCO3 (test code = See_Comment H [Automate d 9285508036) message] The sy stem which generated this result transmitted reference range : 22 - 26 mEq/L. The reference range was not used to interpret this result as normal/abnormal . BE (test code = See_Comment H [Automated 3271413095) message] The sy stem which generated this result transmitted reference range : -3.0 - 3.0 mEq/ L. The reference r josselyn was not used to interpret this result as normal/abnormal . THB (test code = 10.1 g/dL 12-16 L 1601725390) %O2HB (test code = 98.2 % 94-99 6716789706) %COHB ART (test code = 0.0 % 0-1.5 8031802085) %METHB ART (test code = 0.2 % 0.4-1.5 L 2716357455) VOL%O2 ART (test code = 14.2 % 15-23 L 0670583829) NA (test code = 142 mmol/L 135-145 8276931884) K+ (test code = 3.9 mmol/L 3.5-5 7357244653) AC CA IONZ (test code = 4.60 mg/dL 4.5-5.3 5978290592) GLUCOSE (test code = 201 mg/dL 70-110 H 3270642336) LACTIC ACID (test code 0.99 mmol/L 0.5-2.2 = 3587032725) Lab Interpretation Abnormal (test code = 01749-5) [facility] GLUCOSE (AUTOMATED)2022-02-23 17:20:26 Test Item Value Reference Range Interpretation Comments POCT GLU (test code = 222 mg/dL 70-110 H Notifi ed Provider 2076853127) Lab Interpretation (test Abnormal code = 22729-6) [facility] GLUCOSE (AUTOMATED)2022-02-23 13:23:49 Test Item Value Reference Range Interpretation Comments POCT GLU (test code = 188 mg/dL 70-110 H Notifi ed Provider 5934701607) Lab Interpretation (test Abnormal code = 61951-7) [facility] GLUCOSE (AUTOMATED)2022-02-22 21:57:50 Test Item Value Reference Range Interpretation Comments POCT GLU (test code = 4137686279) 240 mg/dL 70-110 H Lab Interpretation (test code = Abnormal 63133-7) [facility] GLUCOSE (AUTOMATED)2022-02-22 18:33:41 Test Item Value Reference Range Interpretation Comments POCT GLU (test code = 7311115469) 247 mg/dL 70-110 H Lab Interpretation (test code = Abnormal 48431-4) [facility]udaURINE [id number] 15:54:13 Test Item Value Reference Range Interpretation Comments URINE CULTURE (test No aerobic growth (< code = 630-4) 1000 CFU/mL) [facility] (NA, K, CL, CO2, GLUCOSE, BUN, CREATININE, CA)2022-02-22 13:03:42 Test Item Value Reference Range Interpretation Comments NA (test code = 140 mmol/L 135-145 1099986909) K (test code = 3.7 mmol/L 3.5-5 8251932310) CL (test code = 95 mmol/L 98-108 L 3347286143) CO2 TOTAL (test code = 40 mmol/L 23-31 H 7738185975) AGAP (test code = 2-16 3087285251) BUN (test code = 19 mg/dL 7-23 2860293515) GLUCOSE (test code = 167 mg/dL 70-110 H 9063263230) CREATININE (test code = 0.85 mg/dL 0.5-1.04 8384358310) CALCIUM (test code = 9.0 mg/dL 8.6-10.6 5860474244) eGFR (test code = mL/min/1.73m2 4322504105) JENNIFFER (test code = JENNIFFER) Association of [...] tests). Lab Interpretation Abnormal (test code = 58712-6) [facility]2022-[facility]-31 12:14:43 Test Item Value Reference Range Interpretation Comments MAGNESIUM (test code = 1514339536) 2.3 mg/dL 1.7-2.4 Lab Interpretation (test code = Normal 09881-2) General acute hospital WITH [id number] 11:52:02 Test Item Value Reference Range Interpretation [...] RDW-SD (test code = 48.7 fL 39-49.9 11192-5) RDW-CV (test code = 15.2 % 12-15.5 788-0) PLT (test code = See_Comment [Automated 777-3) message] The sy stem which generated this result transmitted reference range : 166 - 358 10*3/ ?L. The reference r josselyn was not used to interpret this result as normal/abnormal . MPV (test code = 8.9 fL 9.5-12.9 L 15771-8) NRBC/100 WBC (test See_Comment [Automat ed code = 1338675081) message] The system which generated this result transmitted reference range : 0.0 - 10.0 /100 WBCs. The refer ence range was not u sed to interpret th is result as normal/abnormal . NRBC x10^3 (test code See_Comment [Auto mated = 4930448537) message] The s ystem which generated this result transmitted reference range : 10*3/?L. The reference range was not used to interpret this result as normal/abnormal . GRAN MAT (NEUT) % 70.5 % (test code = 770-8) IMM GRAN % (test code 0.70 % = 2488211599) LYMPH % (test code = 18.8 % 736-9) MONO % (test code = 7.9 % 5905-5) EOS % (test code = 1.2 % 713-8) BASO % (test code = 0.9 % 706-2) GRAN MAT x10^3(ANC) 4.04 10*3/uL 1.88-7.09 (test code = 5631934450) IMM GRAN x10^3 (test 0.04 10*3/uL 0-0.06 code = 7707693685) LYMPH x10^3 (test code 1.08 10*3/uL 1.32-3.29 L = 731-0) MONO x10^3 (test code 0.45 10*3/uL 0.33-0.92 = 742-7) EOS x10^3 (test code = 0.07 10*3/uL 0.03-0.39 711-2) BASO x10^3 (test code 0.05 10*3/uL 0.01-0.07 = 704-7) Lab Interpretation Abnormal (test code = 43295-7) [facility] GLUCOSE (AUTOMATED)2022-02-22 01:40:53 Test Item Value Reference Range Interpretation Comments POCT GLU (test code = 3375497533) 246 mg/dL 70-110 H Lab Interpretation (test code = Abnormal 39043-5) [facility]2022-02-21 22:04:44 Test Item Value Reference Range Interpretation Comments POCT GLU (test code = 9908658352) 293 mg/dL 70-110 H Lab Interpretation (test code = Abnormal 34251-5) [facility]udaCB WITHOUT [id number] 16:03:44 Test Item Value Reference Range Interpretation Comments WBC (test code = 6690-2) See_Comment [A utomated message] The system [employer] generated this result transmit alden reference range : 4.30 - 11.10 10*3/?L. The reference range was not used to interpret this result as normal/abnormal . RBC (test code = 789-8) See_Comment L [Au tomated message] The system [employer] generated this result transmit alden reference range [...] 777-3) See_Comment [Au tomated message] The system [employer] generated this result transmit alden reference range : 166 - 358 10*3/?L. The reference range was not used to interpret this result as normal/abnormal . MPV (test code = 9.2 fL 9.5-12.9 L 35269-5) RDW-CV (test code = 15.7 % 12-15.5 H 788-0) RDW-SD (test code = 50.9 fL 39-49.9 H 52047-7) NRBC x10^3 (test code = See_Comment [Au tomated message] 0535663259) The system [employer] h generated this result transmit alden reference range : 10*3/?L. The reference range was not used to interpret this result as normal/abnormal . NRBC/100 WBC (test code See_Comment [Au tomated message] = 1934901949) The system [employer] generated this result transmit alden reference range : 0.0 - 10.0 /100 WBC s. The reference r josselyn was not used to interpret this result as normal/abnormal . IPF % (test code = 0987915552) Lab Interpretation (test Abnormal code = 98232-2) [facility]2022-02-21 14:46:08 Test Item Value Reference Range Interpretation Comments POCT GLU (test code = 9929773612) 157 mg/dL 70-110 H Lab Interpretation (test code = Abnormal 73150-3) [facility] METABOLIC PANEL (NA, K, CL, CO2, GLUCOSE, BUN, CREATININE, CA)2022-02-21 09:05:34 Test Item Value Reference Range Interpretation Comments NA (test code = 143 mmol/L 135-145 2299397655) K (test code = 3.8 mmol/L 3.5-5 4154765503) CL (test code = 99 mmol/L 98-108 0427739213) CO2 TOTAL (test code = 37 mmol/L 23-31 H 4079463077) AGAP (test code = 2-16 7560161124) BUN (test code = 17 mg/dL 7-23 6360946290) GLUCOSE (test code = 140 mg/dL 70-110 H 0611119000) CREATININE (test code = 0.85 mg/dL 0.5-1.04 4919799698) CALCIUM (test code = 8.9 mg/dL 8.6-10.6 0696963078) eGFR (test code = mL/min/1.73m2 8958394862) JENNIFFER (test code = JENNIFFER) Association of [...] tests). Lab Interpretation Abnormal (test code = 27429-5) [facility] 08:53:13 Test Item Value Reference Range Interpretation Comments MAGNESIUM (test code = 3107983113) 2.3 mg/dL 1.7-2.4 Lab Interpretation (test code = Normal 31225-3) General acute hospital WITH [id number] 08:13:50 Test Item Value Reference Range Interpretation Comments WBC (test code = See_Comment [Automated 6691-2) message] The sy stem which generated this result transmitted reference range : 4.30 - 11.10 10*3/?L. The reference range was not used to interpret this result as normal/abnormal . RBC (test code = See_Comment L [Automated 445-8) message] The sy stem which generated this [...] (test code = 51.5 fL 39-49.9 H 12639-6) RDW-CV (test code = 15.5 % 12-15.5 788-0) PLT (test code = See_Comment L [Automated 777-3) message] The sy stem which generated this result transmitted reference range : 166 - 358 10*3/ ?L. The reference r josselyn was not used to interpret this result as normal/abnormal . MPV (test code = 9.0 fL 9.5-12.9 L 48632-1) NRBC/100 WBC (test See_Comment [Automat ed code = 3818020773) message] The system which generated this result transmitted reference range : 0.0 - 10.0 /100 WBCs. The refer ence range was not u sed to interpret th is result as normal/abnormal . NRBC x10^3 (test code See_Comment [Auto mated = 0166990126) message] The s ystem which generated this result transmitted reference range : 10*3/?L. The reference range was not used to interpret this result as normal/abnormal . GRAN MAT (NEUT) % 68.2 % (test code = 770-8) IMM GRAN % (test code 0.60 % = 5436332527) LYMPH % (test code = 20.0 % 736-9) MONO % (test code = 8.1 % 5905-5) EOS % (test code = 2.0 % 713-8) BASO % (test code = 1.1 % 706-2) GRAN MAT x10^3(ANC) 3.72 10*3/uL 1.88-7.09 (test code = 4940888149) IMM GRAN x10^3 (test 0.03 10*3/uL 0-0.06 code = 3926828750) LYMPH x10^3 (test code 1.09 10*3/uL 1.32-3.29 L = 731-0) MONO x10^3 (test code 0.44 10*3/uL 0.33-0.92 = 742-7) EOS x10^3 (test code = 0.11 10*3/uL 0.03-0.39 711-2) BASO x10^3 (test code 0.06 10*3/uL 0.01-0.07 = 704-7) Lab Interpretation Abnormal (test code = 15850-0) [facility]22-02-21 02:41:53 Test Item Value Reference Range Interpretation Comments POCT GLU (test code = 8046032786) 175 mg/dL 70-110 H Lab Interpretation (test code = Abnormal 03381-4) [facility] Arterial Blood Gas.2022-02-20 23:27:23 Test Item Value Reference Range Interpretation Comments PH (test code = 2) 7.35-7.45 L PCO2 (test code = See_Comment H [Automate d message] 4303377868) The system [employer] generated this result transmitted ref erence range: 35 - 45 mmHg. The reference r josselyn was not used to interpret this result as normal/abnor mal. PO2 (test code = See_Comment H [Automated message] 4267665047) The system [employer] generated this result transmitted ref erence range: 80 - 100 mmHg. The reference r josselyn was not used to interpret this result as normal/abnor mal. HCO3 (test code = See_Comment H [Automate d message] 2284256428) The system [employer] generated this result transmitted ref erence range: 22 - 26 mEq/L. The reference r josselyn was not used to interpret this result as normal/abnor mal. BE (test code = See_Comment H [Automated message] 1631083437) The system [employer] generated this result transmitted ref erence range: -3.0 - 3 .0 mEq/L. The refe rence range was not u sed to interpret this result as normal/abnor mal. Lab Interpretation (test Abnormal code = 71292-2) General acute hospital WITH [id number] 20:32:34 Test Item Value Reference Range Interpretation [...] (test code = 51.8 fL 39-49.9 H 97119-9) RDW-CV (test code = 15.7 % 12-15.5 H 788-0) PLT (test code = See_Comment [Automated 777-3) message] The sy stem which generated this result transmitted reference range : 166 - 358 10*3/ ?L. The reference r josselyn was not used to interpret this result as normal/abnormal . MPV (test code = 8.9 fL 9.5-12.9 L 07611-0) NRBC/100 WBC (test See_Comment [Automat ed code = 5092894828) message] The system which generated this result transmitted reference range : 0.0 - 10.0 /100 WBCs. The refer ence range was not u sed to interpret th is result as normal/abnormal . NRBC x10^3 (test code See_Comment [Auto mated = 8921458112) message] The s ystem which generated this result transmitted reference range : 10*3/?L. The reference range was not used to interpret this result as normal/abnormal . GRAN MAT (NEUT) % 72.1 % (test code = 770-8) IMM GRAN % (test code 1.20 % = 3150986356) LYMPH % (test code = 16.2 % 736-9) MONO % (test code = 7.1 % 5905-5) EOS % (test code = 2.3 % 713-8) BASO % (test code = 1.1 % 706-2) GRAN MAT x10^3(ANC) 7.28 10*3/uL 1.88-7.09 H (test code = 7627997376) IMM GRAN x10^3 (test 0.12 10*3/uL 0-0.06 H code = 3748682720) LYMPH x10^3 (test code 1.63 10*3/uL 1.32-3.29 = 731-0) MONO x10^3 (test code 0.72 10*3/uL 0.33-0.92 = 742-7) EOS x10^3 (test code = 0.23 10*3/uL 0.03-0.39 711-2) BASO x10^3 (test code 0.11 10*3/uL 0.01-0.07 H = 704-7) Lab Interpretation Abnormal (test code = 99709-7) [facility] GLUCOSE (AUTOMATED)2022-02-17 21:46:17 Test Item Value Reference Range Interpretation Comments POCT GLU (test code = 8541891369) 181 mg/dL 70-110 H Lab Interpretation (test code = Abnormal 41513-1) [facility] GLUCOSE (AUTOMATED)2022-02-17 17:09:48 Test Item Value Reference Range Interpretation Comments POCT GLU (test code = 3291311285) 191 mg/dL 70-110 H Lab Interpretation (test code = Abnormal 07999-7) [facility] GLUCOSE (AUTOMATED)2022-02-17 13:07:24 Test Item Value Reference Range Interpretation Comments POCT GLU (test code = 5154237707) 185 mg/dL 70-110 H Lab Interpretation (test code = Abnormal 12770-0) [facility] # [id number] 02:02:05 Test Item Value Reference Range Interpretation Comments Blood Culture-Aerobic No organisms No growth Previo us (test code = 71685-1) isolated prelim inary verified result was Culture [...] Culture-Anaerobic isolated preliminar y (test code = 56717-1) verifi ed result was Culture In Progress [...] CDT Lab Interpretation Normal (test code = 68921-2) [facility] GLUCOSE (AUTOMATED)2022-02-17 00:50:32 Test Item Value Reference Range Interpretation Comments POCT GLU (test code = 6129149938) 152 mg/dL 70-110 H Lab Interpretation (test code = Abnormal 81159-6) [facility] GLUCOSE (AUTOMATED)2022-02-16 21:47:16 Test Item Value Reference Range Interpretation Comments POCT GLU (test code = 4980652817) 183 mg/dL 70-110 H Lab Interpretation (test code = Abnormal 11333-8) [facility] GLUCOSE (AUTOMATED)2022-02-16 17:08:26 Test Item Value Reference Range Interpretation Comments POCT GLU (test code = 6420382669) 160 mg/dL 70-110 H Lab Interpretation (test code = Abnormal 36199-1) [facility] GLUCOSE (AUTOMATED)2022-02-16 13:06:01 Test Item Value Reference Range Interpretation Comments POCT GLU (test code = 3080061868) 140 mg/dL 70-110 H Lab Interpretation (test code = Abnormal 91991-5) [facility] GLUCOSE (AUTOMATED)2022-02-16 08:33:41 Test Item Value Reference Range Interpretation Comments POCT GLU (test code = 9465282073) 193 mg/dL 70-110 H Lab Interpretation (test code = Abnormal 73530-2) [facility] GLUCOSE (AUTOMATED)2022-02-16 04:30:38 Test Item Value Reference Range Interpretation Comments POCT GLU (test code = 3394935855) 167 mg/dL 70-110 H Lab Interpretation (test code = Abnormal 30005-7) [facility] GLUCOSE (AUTOMATED)2022-02-16 00:40:50 Test Item Value Reference Range Interpretation Comments POCT GLU (test code = 9174616568) 190 mg/dL 70-110 H Lab Interpretation (test code = Abnormal 00253-3) [facility] GLUCOSE (AUTOMATED)2022-02-15 21:26:07 Test Item Value Reference Range Interpretation Comments POCT GLU (test code = 1264879047) 189 mg/dL 70-110 H Lab Interpretation (test code = Abnormal 18879-4) [facility] GLUCOSE (AUTOMATED)2022-02-15 17:00:52 Test Item Value Reference Range Interpretation Comments POCT GLU (test code = 4400080899) 213 mg/dL 70-110 H Lab Interpretation (test code = Abnormal 75231-5) [facility] GLUCOSE (AUTOMATED)2022-02-15 12:48:04 Test Item Value Reference Range Interpretation Comments POCT GLU (test code = 5404618711) 145 mg/dL 70-110 H Lab Interpretation (test code = Abnormal 97921-0) [facility]. METABOLIC PANEL ([id number])2022-02-15 08:28:08 Test Item Value Reference Range Interpretation Comments NA (test code = 140 mmol/L 135-145 2145612717) K (test code = 4.0 mmol/L 3.5-5 6705581800) CL (test code = 100 mmol/L 98-108 5680137658) CO2 TOTAL (test code = 35 mmol/L 23-31 H 6616151778) AGAP (test code = 2-16 7325223205) BUN (test code = 12 mg/dL 7-23 0030086146) GLUCOSE (test code = 161 mg/dL 70-110 H 9908106379) CREATININE (test code = 1.20 mg/dL 0.5-1.04 H 6151255210) TOTAL BILI (test code = 0.6 mg/dL 0.1-1.5 4414760942) CALCIUM (test code = 8.7 mg/dL 8.6-10.6 4212300764) T PROTEIN (test code = 6.8 g/dL 6.3-8.2 1277800299) ALBUMIN (test code = 3.7 g/dL 3.5-5 4312222248) ALK PHOS (test code = 121 U/L 34-122 2105027410) ALTv (test code = 35 U/L 5-35 1742-6) AST(SGOT) (test code = 34 U/L 13-40 6921759333) eGFR (test code = mL/min/1.73m2 0382222167) JENNIFFER (test code = JENNIFFER) Association of [...] tests). Lab Interpretation Abnormal (test code = 75292-7) [facility] 08:28:08 Test Item Value Reference Range Interpretation Comments MAGNESIUM (test code = 2528209080) 2.4 mg/dL 1.7-2.4 Lab Interpretation (test code = Normal 74269-5) [facility] acute hospital WITHOUT [id number] 08:07:28 Test Item Value Reference Range Interpretation Comments WBC (test code = 6690-2) See_Comment [A utomated message] The system [employer] generated this result transmit alden reference range : 4.30 - 11.10 10*3/?L. The reference range was not used to interpret this result as normal/abnormal . RBC (test code = 789-8) See_Comment L [Au tomated message] The system [employer] generated this result transmit alden reference range [...] 777-3) See_Comment [Au tomated message] The system [employer] generated this result transmit alden reference range : 166 - 358 10*3/?L. The reference range was not used to interpret this result as normal/abnormal . MPV (test code = 8.9 fL 9.5-12.9 L 35846-1) RDW-CV (test code = 16.2 % 12-15.5 H 788-0) RDW-SD (test code = 52.6 fL 39-49.9 H 38279-1) NRBC x10^3 (test code = See_Comment [Au tomated message] 5504758298) The system [employer] generated this result transmit alden reference range : 10*3/?L. The reference range was not used to interpret this result as normal/abnormal . NRBC/100 WBC (test code See_Comment [Au tomated message] = 4503872856) The system [facility] generated this result transmit alden reference range : 0.0 - 10.0 /100 WBC s. The reference r josselyn was not used to interpret this result as normal/abnormal . IPF % (test code = 5332450743) Lab Interpretation (test Abnormal code = 87979-0) [facility] GLUCOSE (AUTOMATED)2022-02-15 08:03:53 Test Item Value Reference Range Interpretation Comments POCT GLU (test code = 6358649100) 179 mg/dL 70-110 H Lab Interpretation (test code = Abnormal 14405-3) [facility] GLUCOSE (AUTOMATED)2022-02-15 04:16:20 Test Item Value Reference Range Interpretation Comments POCT GLU (test code = 4613352033) 215 mg/dL 70-110 H Lab Interpretation (test code = Abnormal 44425-6) [facility] GLUCOSE (AUTOMATED)2022-02-15 00:50:30 Test Item Value Reference Range Interpretation Comments POCT GLU (test code = 1629700621) 229 mg/dL 70-110 H Lab Interpretation (test code = Abnormal 25773-9) [facility] GLUCOSE (AUTOMATED)2022-02-14 21:23:56 Test Item Value Reference Range Interpretation Comments POCT GLU (test code = 7952440168) 214 mg/dL 70-110 H Lab Interpretation (test code = Abnormal 23534-7) [facility] GLUCOSE (AUTOMATED)2022-02-14 19:38:54 Test Item Value Reference Range Interpretation Comments POCT GLU (test code = 0518508203) 236 mg/dL 70-110 H Lab Interpretation (test code = Abnormal 17245-3) [facility] GLUCOSE (AUTOMATED)2022-02-14 16:28:53 Test Item Value Reference Range Interpretation Comments POCT GLU (test code = 1880422640) 245 mg/dL 70-110 H Lab Interpretation (test code = Abnormal 73978-3) [facility] GLUCOSE (AUTOMATED)2022-02-14 14:17:55 Test Item Value Reference Range Interpretation Comments POCT GLU (test code = 1029566723) 259 mg/dL 70-110 H Lab Interpretation (test code = Abnormal 43073-8) [facility]. METABOLIC PANEL (63219)2022-02-14 10:33:43 Test Item Value Reference Range Interpretation Comments NA (test code = 139 mmol/L 135-145 2228350669) K (test code = 3.9 mmol/L 3.5-5 9380425754) CL (test code = 102 mmol/L 98-108 2261348338) CO2 TOTAL (test code = 33 mmol/L 23-31 H 5475520343) AGAP (test code = 2-16 2389855180) BUN (test code = 11 mg/dL 7-23 4581724400) GLUCOSE (test code = 162 mg/dL 70-110 H 2416666559) CREATININE (test code = 1.05 mg/dL 0.5-1.04 H 7245186009) TOTAL BILI (test code = 0.5 mg/dL 0.1-1.3 7609533820) CALCIUM (test code = 8.2 mg/dL 8.6-10.6 L 0544477541) T PROTEIN (test code = 6.1 g/dL 6.3-8.2 L 9901400640) ALBUMIN (test code = 3.2 g/dL 3.5-5 L 7972377028) ALK PHOS (test code = 113 U/L 34-122 1595967341) ALTv (test code = 37 U/L 5-35 H 1742-6) AST(SGOT) (test code = 29 U/L 13-40 6174559052) eGFR (test code = mL/min/1.73m2 7893159229) JENNIFFER (test code = JENNIFFER) Association of [...] tests). Lab Interpretation Abnormal (test code = 05780-2) [facility] 10:33:43 Test Item Value Reference Range Interpretation Comments MAGNESIUM (test code = 8405026887) 2.2 mg/dL 1.7-2.4 Lab Interpretation (test code = Normal 77543-9) General acute hospital WITH [id number] 10:26:41 Test Item Value Reference Range Interpretation [...] (test code = 51.8 fL 39-49.9 H 31796-4) RDW-CV (test code = 16.1 % 12-15.5 H 788-0) PLT (test code = See_Comment [Automated 777-3) message] The sy stem which generated this result transmitted reference range : 166 - 358 10*3/ ?L. The reference r josselyn was not used to interpret this result as normal/abnormal . MPV (test code = 9.5 fL 9.5-12.9 05034-5) NRBC/100 WBC (test See_Comment [Automat ed code = 1367690536) message] The system which generated this result transmitted reference range : 0.0 - 10.0 /100 WBCs. The refer ence range was not u sed to interpret th is result as normal/abnormal . NRBC x10^3 (test code See_Comment [Auto mated = 1000426385) message] The s ystem which generated this result transmitted reference range : 10*3/?L. The reference range was not used to interpret this result as normal/abnormal . GRAN MAT (NEUT) % 69.7 % (test code = 770-8) IMM GRAN % (test code 0.80 % = 8333952638) LYMPH % (test code = 19.6 % 736-9) MONO % (test code = 6.9 % 5905-5) EOS % (test code = 2.2 % 713-8) BASO % (test code = 0.8 % 706-2) GRAN MAT x10^3(ANC) 3.44 10*3/uL 1.88-7.09 (test code = 1117385217) IMM GRAN x10^3 (test 0.04 10*3/uL 0-0.06 code = 4938253445) LYMPH x10^3 (test code 0.97 10*3/uL 1.32-3.29 L = 731-0) MONO x10^3 (test code 0.34 10*3/uL 0.33-0.92 = 742-7) EOS x10^3 (test code = 0.11 10*3/uL 0.03-0.39 711-2) BASO x10^3 (test code 0.04 10*3/uL 0.01-0.07 = 704-7) Lab Interpretation Abnormal (test code = 11444-2) [facility] GLUCOSE (AUTOMATED)2022-02-14 08:19:03 Test Item Value Reference Range Interpretation Comments POCT GLU (test code = 4979613580) 180 mg/dL 70-110 H Lab Interpretation (test code = Abnormal 20947-0) [facility] GLUCOSE (AUTOMATED)2022-02-14 04:28:25 Test Item Value Reference Range Interpretation Comments POCT GLU (test code = 5165100867) 199 mg/dL 70-110 H Lab Interpretation (test code = Abnormal 21633-3) [facility] GLUCOSE (AUTOMATED)2022-02-14 00:57:11 Test Item Value Reference Range Interpretation Comments POCT GLU (test code = 7616315087) 203 mg/dL 70-110 H Lab Interpretation (test code = Abnormal 44293-4) [facility] GLUCOSE (AUTOMATED)2022-02-13 22:30:21 Test Item Value Reference Range Interpretation Comments POCT GLU (test code = 8103721363) 202 mg/dL 70-110 H Lab Interpretation (test code = Abnormal 45451-6) [facility] GLUCOSE (AUTOMATED)2022-02-13 17:30:07 Test Item Value Reference Range Interpretation Comments POCT GLU (test code = 4333851716) 180 mg/dL 70-110 H Lab Interpretation (test code = Abnormal 96409-9) [facility] GLUCOSE (AUTOMATED)2022-02-13 15:53:46 Test Item Value Reference Range Interpretation Comments POCT GLU (test code = 8059985622) 170 mg/dL 70-110 H Lab Interpretation (test code = Abnormal 85437-3) [facility] Arterial Blood Gas.2022-02-13 14:26:25 Test Item Value Reference Range Interpretation Comments PH (test code = 2) 7.35-7.45 PCO2 (test code = See_Comment [Automate d message] 0721916255) The system [employer] generated this result transmitted ref erence range: 35 - 45 mmHg. The reference r josselyn was not used to interpret this result as normal/abnor mal. PO2 (test code = See_Comment L [Automated message] 1230197151) The system [employer] generated this result transmitted ref erence range: 80 - 100 mmHg. The reference r josselyn was not used to interpret this result as normal/abnor mal. HCO3 (test code = See_Comment H [Automate d message] 0719490789) The system [employer] generated this result transmitted ref erence range: 22 - 26 mEq/L. The reference r josselyn was not used to interpret this result as normal/abnor mal. BE (test code = See_Comment [Automated message] 2604526530) The system [employer] generated this result transmitted ref erence range: -3.0 - 3 .0 mEq/L. The refe rence range was not u sed to interpret this result as normal/abnor mal. Lab Interpretation (test Abnormal code = 77878-0) [facility] GLUCOSE (AUTOMATED)2022-02-13 14:09:26 Test Item Value Reference Range Interpretation Comments POCT GLU (test code = 0733998272) 145 mg/dL 70-110 H Lab Interpretation (test code = Abnormal 94575-8) [facility] GLUCOSE (AUTOMATED)2022-02-13 12:46:36 Test Item Value Reference Range Interpretation Comments POCT GLU (test code = 3927571886) 133 mg/dL 70-110 H Lab Interpretation (test code = Abnormal 46542-6) [facility] GLUCOSE (AUTOMATED)2022-02-13 11:45:25 Test Item Value Reference Range Interpretation Comments POCT GLU (test code = 8972596788) 127 mg/dL 70-110 H Lab Interpretation (test code = Abnormal 18755-0) [facility] METABOLIC PANEL (NA, K, CL, CO2, GLUCOSE, BUN, CREATININE, CA)2022-02-13 11:17:34 Test Item Value Reference Range Interpretation Comments NA (test code = 140 mmol/L 135-145 1939597923) K (test code = 3.8 mmol/L 3.5-5 8467681486) CL (test code = 103 mmol/L 98-108 3447862371) CO2 TOTAL (test code = 35 mmol/L 23-31 H 5474516950) AGAP (test code = 2-16 8678556256) BUN (test code = 14 mg/dL 7-23 8887173984) GLUCOSE (test code = 107 mg/dL 70-110 9201134860) CREATININE (test code = 0.94 mg/dL 0.5-1.04 0868272386) CALCIUM (test code = 8.2 mg/dL 8.6-10.6 L 7094665585) eGFR (test code = mL/min/1.73m2 6210745771) JENNIFFER (test code = JENNIFFER) Association of [...] tests). Lab Interpretation Abnormal (test code = 08548-3) [facility] 11:17:34 Test Item Value Reference Range Interpretation Comments MAGNESIUM (test code = 5284411637) 2.1 mg/dL 1.7-2.4 Lab Interpretation (test code = Normal 16181-2) General acute hospital WITH [id number] 10:41:15 Test Item Value Reference Range Interpretation Comments WBC (test code = See_Comment [Automated 7890-2) message] The sy stem which generated this [...] (test code = 50.6 fL 39-49.9 H 73615-2) RDW-CV (test code = 15.6 % 12-15.5 H 788-0) PLT (test code = See_Comment [Automated 777-3) message] The sy stem which generated this result transmitted reference range : 166 - 358 10*3/ ?L. The reference r josselyn was not used to interpret this result as normal/abnormal . MPV (test code = 9.5 fL 9.5-12.9 10889-0) NRBC/100 WBC (test See_Comment [Automat ed code = 5409400994) message] The system which generated this result transmitted reference range : 0.0 - 10.0 /100 WBCs. The refer ence range was not u sed to interpret th is result as normal/abnormal . NRBC x10^3 (test code See_Comment [Auto mated = 6289866942) message] The s ystem which generated this result transmitted reference range : 10*3/?L. The reference range was not used to interpret this result as normal/abnormal . GRAN MAT (NEUT) % 74.0 % (test code = 770-8) IMM GRAN % (test code 0.50 % = 9411392438) LYMPH % (test code = 15.7 % 736-9) MONO % (test code = 7.4 % 5905-5) EOS % (test code = 1.7 % 713-8) BASO % (test code = 0.7 % 706-2) GRAN MAT x10^3(ANC) 4.37 10*3/uL 1.88-7.09 (test code = 4317486033) IMM GRAN x10^3 (test 0.03 10*3/uL 0-0.06 code = 8951082501) LYMPH x10^3 (test code 0.93 10*3/uL 1.32-3.29 L = 731-0) MONO x10^3 (test code 0.44 10*3/uL 0.33-0.92 = 742-7) EOS x10^3 (test code = 0.10 10*3/uL 0.03-0.39 711-2) BASO x10^3 (test code 0.04 10*3/uL 0.01-0.07 = 704-7) Lab Interpretation Abnormal (test code = 21745-8) [facility] GLUCOSE (AUTOMATED)2022-02-13 09:46:08 Test Item Value Reference Range Interpretation Comments POCT GLU (test code = 0265877474) 118 mg/dL 70-110 H Lab Interpretation (test code = Abnormal 93266-1) [facility] GLUCOSE (AUTOMATED)2022-02-13 08:49:55 Test Item Value Reference Range Interpretation Comments POCT GLU (test code = 9197392548) 122 mg/dL 70-110 H Lab Interpretation (test code = Abnormal 88669-3) [facility] GLUCOSE (AUTOMATED)2022-02-13 08:00:27 Test Item Value Reference Range Interpretation Comments POCT GLU (test code = 7663590747) 140 mg/dL 70-110 H Lab Interpretation (test code = Abnormal 54807-3) [facility] GLUCOSE (AUTOMATED)2022-02-13 07:07:01 Test Item Value Reference Range Interpretation Comments POCT GLU (test code = 5414672771) 155 mg/dL 70-110 H Lab Interpretation (test code = Abnormal 54432-0) [facility] GLUCOSE (AUTOMATED)2022-02-13 05:57:42 Test Item Value Reference Range Interpretation Comments POCT GLU (test code = 8540487094) 186 mg/dL 70-110 H Lab Interpretation (test code = Abnormal 94417-4) [facility] GLUCOSE (AUTOMATED)2022-02-13 03:40:10 Test Item Value Reference Range Interpretation Comments POCT GLU (test code = 2963136960) 245 mg/dL 70-110 H Lab Interpretation (test code = Abnormal 84323-1) [facility] GLUCOSE (AUTOMATED)2022-02-13 03:35:28 Test Item Value Reference Range Interpretation Comments POCT GLU (test code = 2761803154) 239 mg/dL 70-110 H Lab Interpretation (test code = Abnormal 86733-6) [facility] GLUCOSE (AUTOMATED)2022-02-13 01:48:01 Test Item Value Reference Range Interpretation Comments POCT GLU (test code = 0534027005) 184 mg/dL 70-110 H Lab Interpretation (test code = Abnormal 75839-7) [facility] GLUCOSE (AUTOMATED)2022-02-13 00:35:17 Test Item Value Reference Range Interpretation Comments POCT GLU (test code = 4198853798) 166 mg/dL 70-110 H Lab Interpretation (test code = Abnormal 16103-6) [facility] GLUCOSE (AUTOMATED)2022-02-12 23:26:35 Test Item Value Reference Range Interpretation Comments POCT GLU (test code = 2176903125) 149 mg/dL 70-110 H Lab Interpretation (test code = Abnormal 02432-8) [facility] GLUCOSE (AUTOMATED)2022-02-12 22:21:08 Test Item Value Reference Range Interpretation Comments POCT GLU (test code = 1277624140) 133 mg/dL 70-110 H Lab Interpretation (test code = Abnormal 02717-9) [facility] GLUCOSE (AUTOMATED)2022-02-12 21:06:47 Test Item Value Reference Range Interpretation Comments POCT GLU (test code = 6694134169) 130 mg/dL 70-110 H Lab Interpretation (test code = Abnormal 99663-1) [facility] GLUCOSE (AUTOMATED)2022-02-12 20:04:32 Test Item Value Reference Range Interpretation Comments POCT GLU (test code = 5850725719) 122 mg/dL 70-110 H Lab Interpretation (test code = Abnormal 03670-3) [facility] GLUCOSE (AUTOMATED)2022-02-12 19:08:55 Test Item Value Reference Range Interpretation Comments POCT GLU (test code = 2417503295) 133 mg/dL 70-110 H Lab Interpretation (test code = Abnormal 98817-3) [facility] GLUCOSE (AUTOMATED)2022-02-12 18:20:07 Test Item Value Reference Range Interpretation Comments POCT GLU (test code = 7562078424) 136 mg/dL 70-110 H Lab Interpretation (test code = Abnormal 82334-7) [facility] GLUCOSE (AUTOMATED)2022-02-12 17:19:20 Test Item Value Reference Range Interpretation Comments POCT GLU (test code = 0352265768) 155 mg/dL 70-110 H Lab Interpretation (test code = Abnormal 24550-3) [facility] GLUCOSE (AUTOMATED)2022-02-12 16:21:39 Test Item Value Reference Range Interpretation Comments POCT GLU (test code = 5180967138) 143 mg/dL 70-110 H Lab Interpretation (test code = Abnormal 23903-4) [facility]9472-83-04 16:14:56 Test Item Value Reference Range Interpretation Comments BOH (test code = 0.2 mmol/L 0211703596) JENNIFFER (test code = Normal Ranges: ? ? JENNIFFER) Nonfasting ? Less than 0.1 mmol/L ? ? Overnight Fast ? ? ? Less than 0.4 mmol/L ? ? Fasting (1-2 weeks) ?6-8 mmol/L Test developed and characteristics determined by [facility] Laboratory Services. [facility] GLUCOSE (AUTOMATED)2022-02-12 15:53:18 Test Item Value Reference Range Interpretation Comments POCT GLU (test code = 7100119450) 70-110 HH Lab Interpretation (test code = Abnormal 28815-8) [facility] GLUCOSE (AUTOMATED)2022-02-12 14:17:34 Test Item Value Reference Range Interpretation Comments POCT GLU (test code = 8867055352) 232 mg/dL 70-110 H Lab Interpretation (test code = Abnormal 74476-5) [facility] GLUCOSE (AUTOMATED)2022-02-12 13:17:46 Test Item Value Reference Range Interpretation Comments POCT GLU (test code = 0452772095) 295 mg/dL 70-110 H Lab Interpretation (test code = Abnormal 55983-3) [facility] (NA, K, CL, CO2, GLUCOSE, BUN, CREATININE, CA)2022-02-12 12:56:38 Test Item Value Reference Range Interpretation Comments NA (test code = 138 mmol/L 135-145 0134449423) K (test code = 4.0 mmol/L 3.5-5 6841578961) CL (test code = 98 mmol/L 98-108 8001345517) CO2 TOTAL (test code = 31 mmol/L 23-31 3431837376) AGAP (test code = 2-16 5653089371) BUN (test code = 20 mg/dL 7-23 1667497480) GLUCOSE (test code = 279 mg/dL 70-110 H 2778744221) CREATININE (test code = 1.08 mg/dL 0.5-1.04 H 5822410663) CALCIUM (test code = 8.8 mg/dL 8.6-10.6 4898875312) eGFR (test code = mL/min/1.73m2 0254566279) JENNIFFER (test code = JENNIFFER) Association of [...] tests). Lab Interpretation Abnormal (test code = 65678-2) [facility] GLUCOSE (AUTOMATED)2022-02-12 12:44:19 Test Item Value Reference Range Interpretation Comments POCT GLU (test code = 2300576623) 299 mg/dL 70-110 H Lab Interpretation (test code = Abnormal 93067-0) [facility] GLUCOSE (AUTOMATED)2022-02-12 12:19:29 Test Item Value Reference Range Interpretation Comments POCT GLU (test code = 9030070810) 283 mg/dL 70-110 H Lab Interpretation (test code = Abnormal 88688-9) [facility] GLUCOSE (AUTOMATED)2022-02-12 11:22:10 Test Item Value Reference Range Interpretation Comments POCT GLU (test code = 1987347920) 378 mg/dL 70-110 H Lab Interpretation (test code = Abnormal 39529-5) [facility] GLUCOSE (AUTOMATED)2022-02-12 10:18:29 Test Item Value Reference Range Interpretation Comments POCT GLU (test code = 3237478381) 376 mg/dL 70-110 H Lab Interpretation (test code = Abnormal 37836-8) [facility]uda[facility]smol[facility] Mpkfs1963-61-92 09:27:10 Test Item Value Reference Range Interpretation Comments OSMOLALITY (test code = See_Comment HH [Au tomated message] 2692-2) The system [employer] generated this result transmitted ref erence range: 278 - 30 5 mOsm/kg. The reference range was not used to int erpret this result as normal/abnormal . Lab Interpretation (test Abnormal code = 80100-3) [facility] METABOLIC PANEL (NA, K, CL, CO2, GLUCOSE, BUN, CREATININE, CA)2022-02-12 09:22:44 Test Item Value Reference Range Interpretation Comments NA (test code = 135 mmol/L 135-145 5959056832) K (test code = 4.7 mmol/L 3.5-5 9462910091) CL (test code = 93 mmol/L 98-108 L 0456152567) CO2 TOTAL (test code = 33 mmol/L 23-31 H 4833699764) AGAP (test code = 2-16 1991995274) BUN (test code = 22 mg/dL 7-23 9878056369) GLUCOSE (test code = 474 mg/dL 70-110 HH 1473515633) CREATININE (test code = 1.17 mg/dL 0.5-1.04 H 6650032950) CALCIUM (test code = 8.9 mg/dL 8.6-10.6 2066618803) eGFR (test code = mL/min/1.73m2 6218396676) JENNIFFER (test code = JENNIFFER) Association of [...] tests). Lab Interpretation Abnormal (test code = 24496-7) [facility] GLUCOSE (AUTOMATED)2022-02-12 09:19:06 Test Item Value Reference Range Interpretation Comments POCT GLU (test code = 2926443835) 478 mg/dL 70-110 HH Lab Interpretation (test code = Abnormal 02655-7) [facility] 09:16:19 Test Item Value Reference Range Interpretation Comments PHOSPHORUS (test code = 5152442645) 5.9 mg/dL 2.5-5 H Lab Interpretation (test code = Abnormal 61003-5) [facility] 09:16:19 Test Item Value Reference Range Interpretation Comments MAGNESIUM (test code = 1298470032) 2.1 mg/dL 1.7-2.4 Lab Interpretation (test code = Normal 54182-7) [facility]udaGlycosylated Hemoglobin (A1C)2022-02-12 09:10:46 Test Item Value Reference Range Interpretation Comments HGB A1C (test code = 9.7 % 4-5.7 H 4548-4) JENNIFFER (test code = JENNIFFER) Reference RangesNormal: <5.7%Prediabetes: 5.7 - 6.4%Diabetes: > 6.5% Lab Interpretation (test Abnormal code = 27653-4) [facility] WITH [id number] 08:28:29 Test Item Value Reference Range Interpretation [...] RDW-SD (test code = 49.8 fL 39-49.9 86278-7) RDW-CV (test code = 15.7 % 12-15.5 H 788-0) PLT (test code = See_Comment [Automated 777-3) message] The system which generated this result transmit alden reference range : 166 - 358 10*3/ ?L. The reference range was not u sed to interpret th is result as normal/abnormal . MPV (test code = 9.7 fL 9.5-12.9 69733-7) NRBC/100 WBC (test See_Comment [Automat ed code = 8734796130) message] The system which generated this result transmit alden reference range : 0.0 - 10.0 /100 WBCs. The reference range was not used to interpret this result as normal/abnormal . NRBC x10^3 (test code See_Comment [Auto mated = 8862009413) message] The system which generated this result transmit alden reference range : 10*3/?L. The reference range was not used to interpret this result as normal/abnormal . GRAN MAT (NEUT) % 89.9 % (test code = 770-8) IMM GRAN % (test code 0.90 % = 5878773107) LYMPH % (test code = 3.4 % 736-9) MONO % (test code = 5.3 % 5905-5) EOS % (test code = 0.1 % 713-8) BASO % (test code = 0.4 % 706-2) GRAN MAT x10^3(ANC) 11.94 10*3/uL 1.88-7.09 H (test code = 1860517606) IMM GRAN x10^3 (test 0.12 10*3/uL 0-0.06 H code = 8849324919) LYMPH x10^3 (test code 0.45 10*3/uL 1.32-3.29 L = 731-0) MONO x10^3 (test code 0.70 10*3/uL 0.33-0.92 = 742-7) EOS x10^3 (test code = 0.03-0.39 L 711-2) BASO x10^3 (test code 0.05 10*3/uL 0.01-0.07 = 704-7) Lab Interpretation Abnormal (test code = 98231-2) [facility] GLUCOSE (AUTOMATED)2022-02-12 04:57:17 Test Item Value Reference Range Interpretation Comments POCT GLU (test code = 6972565137) 592 mg/dL 70-110 HH Lab Interpretation (test code = Abnormal 27995-8) [facility] GLUCOSE (AUTOMATED)2022-02-12 04:57:17 Test Item Value Reference Range Interpretation Comments POCT GLU (test code = 9381207273) 559 mg/dL 70-110 HH Lab Interpretation (test code = Abnormal 95451-9) [facility] BudaTHYROID STIMULATING [id number] 02:15:56 Test Item Value Reference Range Interpretation Comments TSH (test code = See_Comment [Automated message] 7533173868) The system [employer] generated this result transmitted ref erence range: 0.45 - 4 .70 mIU/L. The refe rence range was not u sed to interpret this result as normal/abnor mal. Lab Interpretation (test Normal code = 13202-4) [facility]udaFREE [id number] 02:02:37 Test Item Value Reference Range Interpretation Comments FREE T4 (test code = See_Comment [Autom ated message] 2278178940) The system [employer] generated this result transmitted ref erence range: 0.78 - 2 .20 ng/dL:. The ref erence range was not u sed to interpret this result as normal/abnor mal. Lab Interpretation (test Normal code = 97759-0) [facility] BudaTROPONIN [id number] 01:57:33 Test Item Value Reference Interpretation Comments Range TROPONIN I (test 0.001 ng/mL See_Comment [Automated code = 7192537680) message] The system which generated this result [...] biotin. Lab Interpretation Normal (test code = 67782-0) [facility]. METABOLIC PANEL (41361)2022-02-12 01:55:07 Test Item Value Reference Range Interpretation Comments NA (test code = 134 mmol/L 135-145 L 3928978138) K (test code = 4.4 mmol/L 3.5-5 2548256103) CL (test code = 95 mmol/L 98-108 L 1106861907) CO2 TOTAL (test code = 22 mmol/L 23-31 L 0143768645) AGAP (test code = 2-16 H 2849305769) BUN (test code = 22 mg/dL 7-23 4904176652) GLUCOSE (test code = 646 mg/dL 70-110 HH 8358981443) CREATININE (test code = 1.19 mg/dL 0.5-1.04 H 9059918260) TOTAL BILI (test code = 1.1 mg/dL 0.1-1.6 7987525293) CALCIUM (test code = 9.1 mg/dL 8.6-10.6 0652392671) T PROTEIN (test code = 7.0 g/dL 6.3-8.2 0645373392) ALBUMIN (test code = 4.1 g/dL 3.5-5 6094335271) ALK PHOS (test code = 245 U/L 34-122 H 1808095428) ALTv (test code = 78 U/L 5-35 H 1742-6) AST(SGOT) (test code = 76 U/L 13-40 H 4360709388) eGFR (test code = mL/min/1.73m2 7754403646) JENNIFFER (test code = JENNIFFER) Association of [...] tests). Lab Interpretation Abnormal (test code = 02133-6) [facility]udaN-TERMINAL [id number] 01:54:57 Test Item Value Reference Range Interpretation Comments NT-proBNP (test code 491 pg/mL See_Comment H [Autom ated = 6017497459) message] The system which generated this result transmitted reference range : <=125. The reference range was not used to interpret this result as normal/abnormal . JENNIFFER (test code = JENNIFFER) Biotin has been reported to cause a negative bias, interpret results relative to patient's use of biotin. Lab Interpretation Abnormal (test code = 59706-8) [facility] BudaETHANOL2022-07-21 01:47:18 ALCOHOL<10mg/dL02/11/2022 8:[address] 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 The reference range was not used to interpr et this result as normal/abnormal . JENNIFFER (test code = JENNIFFER) The [facility] patient population mean normal value for aPTT is 30 seconds. Lab Interpretation Normal (test code = 78706-0) [facility]udaCBC WITH [id number] 01:37:15 Test Item Value Reference Range Interpretation Comments WBC (test code = See_Comment H [Automated 6690-2) message] The sy stem which [...] (test code = 50.9 fL 39-49.9 H 05913-9) RDW-CV (test code = 15.8 % 12-15.5 H 788-0) PLT (test code = See_Comment [Automated 777-3) message] The sy stem which generated this result transmitted reference range : 166 - 358 10*3/ ?L. The reference r josselyn was not used to interpret this result as normal/abnormal . MPV (test code = 9.9 fL 9.5-12.9 98062-2) NRBC/100 WBC (test See_Comment [Automat ed code = 3330515528) message] The system which generated this result transmitted reference range : 0.0 - 10.0 /100 WBCs. The refer ence range was not u sed to interpret th is result as normal/abnormal . NRBC x10^3 (test code See_Comment [Auto mated = 9903506952) message] The s ystem which generated this result transmitted reference range : 10*3/?L. The reference range was not used to interpret this result as normal/abnormal . GRAN MAT (NEUT) % 78.5 % (test code = 770-8) IMM GRAN % (test code 1.20 % = 8509028570) LYMPH % (test code = 12.2 % 736-9) MONO % (test code = 6.4 % 5905-5) EOS % (test code = 1.0 % 713-8) BASO % (test code = 0.7 % 706-2) GRAN MAT x10^3(ANC) 8.80 10*3/uL 1.88-7.09 H (test code = 8104671041) IMM GRAN x10^3 (test 0.14 10*3/uL 0-0.06 H code = 2055292139) LYMPH x10^3 (test code 1.37 10*3/uL 1.32-3.29 = 731-0) MONO x10^3 (test code 0.72 10*3/uL 0.33-0.92 = 742-7) EOS x10^3 (test code = 0.11 10*3/uL 0.03-0.39 711-2) BASO x10^3 (test code 0.08 10*3/uL 0.01-0.07 H = 704-7) Lab Interpretation Abnormal (test code = 62994-2) [facility] BudaPROTHROMBIN TIME / [id number] 01:36:50 Test Item Value Reference Range Interpretation [...] tions. Lab Interpretation (test Normal code = 17200-6) [facility] GLUCOSE (AUTOMATED)2022-01-31 18:41:03 Test Item Value Reference Range Interpretation Comments POCT GLU (test code = 3015410352) 241 mg/dL 70-110 H Lab Interpretation (test code = Abnormal 77557-6) [facility] BudaSPUTUM [id number] 14:36:01 Test Item Value Reference Range Interpretation Comments SPUTUM CULTURE 1+ Respiratory iveth: (test code = 622-1) Commensal upper respiratory microorganisms only. Gram stain (test Few Epithelial cells code = 664-3) JENNIFFER (test code = Bacterial pathogens JENNIFFER) associated with lower respiratory infections were not identified, which include Pseudomonas aeruginosa and Staphylococcus aureus (MRSA or MSSA). [facility] BudaN-TERMINAL [id number] 14:27:39 Test Item Value Reference Range Interpretation Comments NT-proBNP (test code 2930 pg/mL See_Comment H [Autom ated = 5704894833) message] The system which generated this result transmitted reference range : <=125. The reference range was not used to interpret this result as normal/abnormal . JENNIFFER (test code = JENNIFFER) Biotin has been reported to cause a negative bias, interpret results relative to patient's use of biotin. Lab Interpretation Abnormal (test code = 52380-1) [facility] GLUCOSE (AUTOMATED)2022-01-31 13:06:37 Test Item Value Reference Range Interpretation Comments POCT GLU (test code = 7260928254) 144 mg/dL 70-110 H Lab Interpretation (test code = Abnormal 76597-9) [facility]udaBASI METABOLIC PANEL (NA, K, CL, CO2, GLUCOSE, BUN, CREATININE, CA)2022-01-31 11:52:51 Test Item Value Reference Range Interpretation Comments NA (test code = 139 mmol/L 135-145 4058740342) K (test code = 4.2 mmol/L 3.5-5.0 0924658441) CL (test code = 92 mmol/L 98-108 L 5622340817) CO2 TOTAL (test code = 39 mmol/L 23-31 H 4091173451) AGAP (test code = 2-16 5420436452) BUN (test code = 32 mg/dL 7-23 H 4572765590) GLUCOSE (test code = 183 mg/dL 70-110 H 3288941099) CREATININE (test code = 0.89 mg/dL 0.50-1.04 2409125525) CALCIUM (test code = 8.7 mg/dL 8.6-10.6 8670022712) eGFR (test code = mL/min/1.73m2 2562993382) JENNIFFER (test code = JENNIFFER) Association of [...] tests). Lab Interpretation Abnormal (test code = 58583-4) [facility] Test Item Value Reference Range Interpretation Comments MAGNESIUM (test code = 2829049476) 2.4 mg/dL 1.7-2.4 Lab Interpretation (test code = Normal 24280-2) [facility]PH[facility]PH[facility]2022-07-09 11:44:49 Test Item Value Reference Range Interpretation Comments PHOSPHORUS (test code = 2674148717) 3.3 mg/dL 2.5-5.0 Lab Interpretation (test code = Normal 43760-5) [facility] GLUCOSE (AUTOMATED)2022-01-30 21:23:07 Test Item Value Reference Range Interpretation Comments POCT GLU (test code = 5059498332) 357 mg/dL 70-110 H Lab Interpretation (test code = Abnormal 86553-8) [facility] GLUCOSE (AUTOMATED)2022-01-30 17:39:07 Test Item Value Reference Range Interpretation Comments POCT GLU (test code = 3361930919) 183 mg/dL 70-110 H Lab Interpretation (test code = Abnormal 75114-3) [facility] GLUCOSE (AUTOMATED)2022-01-30 17:39:07 Test Item Value Reference Range Interpretation Comments POCT GLU (test code = 5176373242) 275 mg/dL 70-110 H Lab Interpretation (test code = Abnormal 58144-1) [facility] GLUCOSE (AUTOMATED)2022-01-30 13:42:50 Test Item Value Reference Range Interpretation Comments POCT GLU (test code = 1923086755) 187 mg/dL 70-110 H Lab Interpretation (test code = Abnormal 67214-4) [facility]udaN-TERMIN[facility] [id number] 10:44:07 Test Item Value Reference Range Interpretation Comments NT-proBNP (test code 3180 pg/mL See_Comment H [Autom ated = 9087817941) message] The system which generated this result transmitted reference range : <=125. The reference range was not used to interpret this result as normal/abnormal . JENNIFFER (test code = JENNIFFER) Biotin has been reported to cause a negative bias, interpret results relative to patient's use of biotin. Lab Interpretation Abnormal (test code = 74530-7) [facility]. METABOLIC PANEL (68939)2022-01-30 10:36:27 Test Item Value Reference Range Interpretation Comments NA (test code = 139 mmol/L 135-145 3107534210) K (test code = 3.7 mmol/L 3.5-5.0 4870544428) CL (test code = 92 mmol/L 98-108 L 8776583408) CO2 TOTAL (test code = 37 mmol/L 23-31 H 1964752610) AGAP (test code = 2-16 9496838122) BUN (test code = 22 mg/dL 7-23 0545631147) GLUCOSE (test code = 192 mg/dL 70-110 H 9019912027) CREATININE (test code = 1.04 mg/dL 0.50-1.04 1352795836) TOTAL BILI (test code = 0.7 mg/dL 0.1-1.4 9293227681) CALCIUM (test code = 8.3 mg/dL 8.6-10.6 L 7066262139) T PROTEIN (test code = 6.8 g/dL 6.3-8.2 4969728951) ALBUMIN (test code = 3.7 g/dL 3.5-5.0 2690823396) ALK PHOS (test code = 124 U/L 34-122 H 4894542114) ALTv (test code = 28 U/L 5-35 1742-6) AST(SGOT) (test code = 24 U/L 13-40 7858580236) eGFR (test code = mL/min/1.73m2 4607823390) JENNIFFER (test code = JENNIFFER) Association of [...] tests). Lab Interpretation Abnormal (test code = 51406-7) [facility] WITH [id number] 09:41:38 Test Item Value Reference Range Interpretation Comments WBC (test code = See_Comment [Automated 1890-2) message] The sy stem which generated this result transmitted reference range : 4.30 - 11.10 10*3/?L. The reference range was not used to interpret this result as normal/abnormal . RBC (test code = See_Comment L [Automated 799-8) message] The sy stem which generated this [...] RDW-SD (test code = 47.8 fL 39.0-49.9 42959-6) RDW-CV (test code = 15.0 % 12.0-15.5 788-0) PLT (test code = See_Comment [Automated 777-3) message] The sy stem which generated this result transmitted reference range : 166 - 358 10*3/ ?L. The reference r josselyn was not used to interpret this result as normal/abnormal . MPV (test code = 9.1 fL 9.5-12.9 L 29388-5) NRBC/100 WBC (test See_Comment [Automat ed code = 6140126325) message] The system which generated this result transmitted reference range : 0.0 - 10.0 /100 WBCs. The refer ence range was not u sed to interpret th is result as normal/abnormal . NRBC x10^3 (test code <0.01 See_Comment [Auto mated = 5061733720) message] The s ystem which generated this result transmitted reference range : 10*3/?L. The reference range was not used to interpret this result as normal/abnormal . GRAN MAT (NEUT) % 85.7 % (test code = 770-8) IMM GRAN % (test code 0.60 % = 3212842051) LYMPH % (test code = 7.1 % 736-9) MONO % (test code = 6.1 % 5905-5) EOS % (test code = 0.1 % 713-8) BASO % (test code = 0.4 % 706-2) GRAN MAT x10^3(ANC) 7.16 10*3/uL 1.88-7.09 H (test code = 3419293422) IMM GRAN x10^3 (test 0.05 10*3/uL 0.00-0.06 code = 1997996858) LYMPH x10^3 (test code 0.59 10*3/uL 1.32-3.29 L = 731-0) MONO x10^3 (test code 0.51 10*3/uL 0.33-0.92 = 742-7) EOS x10^3 (test code = <0.03 0.03-0.39 L 711-2) BASO x10^3 (test code 0.03 10*3/uL 0.01-0.07 = 704-7) Lab Interpretation Abnormal (test code = 19187-0) [facility]-30 03:06:20 Test Item Value Reference Range Interpretation Comments POCT GLU (test code = 0891029859) 336 mg/dL 70-110 H Lab Interpretation (test code = Abnormal 55333-4) [facility]PH[facility]2022-07-07 21:35:38 Test Item Value Reference Range Interpretation Comments PHOSPHORUS (test code = 1695164834) 4.3 mg/dL 2.5-5.0 Lab Interpretation (test code = Normal 93043-6) [facility] GLUCOSE (AUTOMATED)2022-01-29 21:21:35 Test Item Value Reference Range Interpretation Comments POCT GLU (test code = 9674030891) 354 mg/dL 70-110 H Lab Interpretation (test code = Abnormal 13768-2) [facility] GLUCOSE (AUTOMATED)2022-01-29 16:10:10 Test Item Value Reference Range Interpretation Comments POCT GLU (test code = 7332234148) 240 mg/dL 70-110 H Lab Interpretation (test code = Abnormal 78286-0) [facility] GLUCOSE (AUTOMATED)2022-01-29 15:16:07 Test Item Value Reference Range Interpretation Comments POCT GLU (test code = 5412610803) 219 mg/dL 70-110 H Lab Interpretation (test code = Abnormal 46829-6) [facility] GLUCOSE (AUTOMATED)2022-01-29 13:06:22 Test Item Value Reference Range Interpretation Comments POCT GLU (test code = 4617452578) 176 mg/dL 70-110 H Lab Interpretation (test code = Abnormal 24071-6) [facility]. METABOLIC PANEL (67542)2022-01-29 10:31:34 Test Item Value Reference Range Interpretation Comments NA (test code = 141 mmol/L 135-145 7723776502) K (test code = 4.2 mmol/L 3.5-5.0 2366627384) CL (test code = 96 mmol/L 98-108 L 2016545289) CO2 TOTAL (test code = 37 mmol/L 23-31 H 5368848227) AGAP (test code = 2-16 2602784129) BUN (test code = 20 mg/dL 7-23 5935988763) GLUCOSE (test code = 179 mg/dL 70-110 H 8735571870) CREATININE (test code = 0.90 mg/dL 0.50-1.04 7505376371) TOTAL BILI (test code = 0.7 mg/dL 0.1-1.2 6514141198) CALCIUM (test code = 8.3 mg/dL 8.6-10.6 L 3170792445) T PROTEIN (test code = 7.3 g/dL 6.3-8.2 1235708578) ALBUMIN (test code = 3.9 g/dL 3.5-5.0 3823407608) ALK PHOS (test code = 151 U/L 34-122 H 4284049015) ALTv (test code = 44 U/L 5-35 H 1742-6) AST(SGOT) (test code = 54 U/L 13-40 H 7183208798) eGFR (test code = mL/min/1.73m2 1384989333) JENNIFFER (test code = JENNIFFER) Association of [...] tests). Lab Interpretation Abnormal (test code = 87894-3) [facility]uda[facility] [id number] 10:06:38 Test Item Value Reference Range Interpretation Comments NT-proBNP (test code 3080 pg/mL See_Comment H [Autom ated = 3170483444) message] The system which generated this result transmitted reference range : <=125. The reference range was not used to interpret this result as normal/abnormal . JENNIFFER (test code = JENNIFFER) Biotin has been reported to cause a negative bias, interpret results relative to patient's use of biotin. Lab Interpretation Abnormal (test code = 89656-7) [facility]uda[facility]2022-[facility]-07 09:58:35 Test Item Value Reference Range Interpretation Comments MAGNESIUM (test code = 3549942244) 1.8 mg/dL 1.7-2.4 Lab Interpretation (test code = Normal 46896-4) [facility] acute hospital WITH [id number] 09:47:53 Test Item Value Reference Range Interpretation [...] (test code = 50.9 fL 39.0-49.9 H 47722-9) RDW-CV (test code = 15.5 % 12.0-15.5 788-0) PLT (test code = See_Comment [Automated 777-3) message] The system which generated this result transmit alden reference range : 166 - 358 10*3/ ?L. The reference range was not u sed to interpret th is result as normal/abnormal . MPV (test code = 9.9 fL 9.5-12.9 92853-0) NRBC/100 WBC (test See_Comment [Automat ed code = 0112924142) message] The system which generated this result transmit alden reference range : 0.0 - 10.0 /100 WBCs. The reference range was not used to interpret this result as normal/abnormal . NRBC x10^3 (test code <0.01 See_Comment [Auto mated = 6523335504) message] The system which generated this result transmit alden reference range : 10*3/?L. The reference range was not used to interpret this result as normal/abnormal . GRAN MAT (NEUT) % 87.2 % (test code = 770-8) IMM GRAN % (test code 0.50 % = 5882370155) LYMPH % (test code = 5.6 % 736-9) MONO % (test code = 5.9 % 5905-5) EOS % (test code = 0.4 % 713-8) BASO % (test code = 0.4 % 706-2) GRAN MAT x10^3(ANC) 10.37 10*3/uL 1.88-7.09 H (test code = 8370915631) IMM GRAN x10^3 (test 0.06 10*3/uL 0.00-0.06 code = 2242843178) LYMPH x10^3 (test code 0.66 10*3/uL 1.32-3.29 L = 731-0) MONO x10^3 (test code 0.70 10*3/uL 0.33-0.92 = 742-7) EOS x10^3 (test code = 0.05 10*3/uL 0.03-0.39 711-2) BASO x10^3 (test code 0.05 10*3/uL 0.01-0.07 = 704-7) Lab Interpretation Abnormal (test code = 82648-9) [facility]uda[facility]2022-01-29 05:48:29 Test Item Value Reference Range Interpretation Comments POCT GLU (test code = 8235746246) 297 mg/dL 70-110 H Lab Interpretation (test code = Abnormal 30041-9) [facility] GLUCOSE (AUTOMATED)2022-01-29 05:48:29 Test Item Value Reference Range Interpretation Comments POCT GLU (test code = 4666914915) 282 mg/dL 70-110 H Lab Interpretation (test code = Abnormal 45123-5) [facility] GLUCOSE (AUTOMATED)2022-01-28 23:35:33 Test Item Value Reference Range Interpretation Comments POCT GLU (test code = 5722990603) 302 mg/dL 70-110 H Lab Interpretation (test code = Abnormal 89555-9) [facility] BudaVITAMIN B12, [id number] 23:17:54 Test Item Value Reference Range Interpretation Comments VIT B12 (test code = 265 pg/mL 240-930 5370791656) JENNIFFER (test code = JENNIFFER) Biotin has been reported to cause a positive bias, interpret results relative to patient's use of biotin. Lab Interpretation (test Normal code = 20364-8) [facility]udaPROCALCITONIN2022-07-06 20:35:43 Test Item Value Reference Range Interpretation Comments Procalcitonin (test 0.13 ng/mL <0.07 H code = 0866806063) JENNIFFER (test code = JENNIFFER) INTERPRETATION OF [...] lung abscess/empyema. For further information please refer to:[email or web address] Lab Interpretation Abnormal (test code = 17868-0) [facility]uda[facility]ITAMIN D, [id number] 20:34:43 Test Item Value Reference Range Interpretation Comments VIT D 25OH (test code = 23 ng/mL 25-80 L 95854-3) JENNIFFER (test code = JENNIFFER) Deficiency: <20 ng/mLInsufficiency: 20-24 ng/mLOptimal: 25-80 ng/mL Lab Interpretation (test Abnormal code = 64088-5) [facility] BudaTROPONIN [id number] 18:15:31 Test Item Value Reference Interpretation Comments Range TROPONIN I (test 0.003 ng/mL See_Comment [Automated code = 4828255744) message] The system which generated this result [...] biotin. Lab Interpretation Normal (test code = 51121-2) [facility] BudaURIC [id number] 18:04:12 Test Item Value Reference Range Interpretation Comments URIC ACID (test code = 7578803189) 9.3 mg/dL 2.9-6.0 H Lab Interpretation (test code = Abnormal 09781-6) [facility] BudaTransthoracic echo (TTE)2022-01-28 17:57:52 Test Item Value Reference Range Interpretation Comments Height (test code = in 8899093024) Weight (test code = lbs 4906423907) Systolic BP (test code = mmHg 1151323068) Diastolic BP (test code = mmHg 7473406750) Heart Rate (test code = bpm 3058432202) Ao root annulus (test 3.1 cm code = 0922576430) Ao root diam (test code = 3.10 cm 4363934649) Aortic root (test code = 3.1 cm 3393815584) LA size (test code = 4.9 cm 8324446892) LVOT diameter (test code 2.10 cm = 2195681253) E wave decelartion time 0.25 s (test code = 8490826544) MV Peak E Marva (test code 83.7 cm/s = 8982107531) MV Peak A Marva (test code 66.0 cm/s = 2612450717) E/A ratio (test code = ratio 3511268116) MV E/e' septal (test code 8.2 cm/s = 5133500269) Tapse (test code = 1.68 cm 6266032748) Aortic valve mean 77.4 cm/s velocity (test code = 3754932272) Ao peak marva (test code = 124.6 cm/s 0498598073) Ao VTI (test code = 20.7 cm 9513393484) Ao max PG (test code = 6.20 mm[Hg] 1265552672) AV peak gradient (test mmHg code = 4977692660) AV mean gradient (test mmHg code = 5823278688) LVOT stroke volume (test 62.00 cm3 code = 9087566703) LVOT peak marva (test code 104.3 cm/s = 3754341045) LVOT mn grad (test code = mmHg 7931489027) AV LVOT peak gradient mmHg (test code = 5372052242) LVOT peak VTI (test code 17.9 cm = 1019818456) AV area by cont VTI (test 3.0 cm2 code = 5697275795) AV area peak marva (test 2.9 cm2 code = 5591657697) LV V1 mean (test code = 63.60 cm/s 5437335319) AV valve area (test code 3.00 cm2 = 9624675172) LVIDD (test code = 5.20 cm 2104553382) IVS (test code = 0.79 cm 8708909449) Interventricular Septum 0.79 cm Diastolic Thickness by 2D (test code = 9636870) LVPWD (test code = 0.66 cm 5847398878) PW (test code = 0.66 cm 0.6-1.1 1568836477) EF(Teich) (test code = 48.60 % 0116377249) LVIDS (test code = 3.90 cm 8095459093) FS (test code = 25 % 3029871299) EF - 2D (test code = 48.60 % 64376303) Radiology Study observation (narrative) (test code = 14056-0) JENNIFFER (test code = JENNIFFER) ?Left?Ventricle: Normal systolic function with a visually estimated EF of 60 - 65%. ?Tricuspid?Valve: Insufficient regurgant jet to estimate RVSP. ?RA pressure is 10-15 mmHg. VitalsHeight Weight BSA (Calculated - sq m) BP Pulse 5' 1" (1.549 m) 230 lb (104.3 kg) 2.12 sq meters 118/66 96 [facility] [id number] 14:19:29 Test Item Value Reference Interpretation Comments Range TROPONIN I (test 0.003 ng/mL See_Comment [Automated code = 0274843006) message] The system which generated this result [...] biotin. Lab Interpretation Normal (test code = 69300-8) [facility] [id number] 14:16:29 Test Item Value Reference Range Interpretation Comments NT-proBNP (test code 1170 pg/mL See_Comment H [Autom ated = 1077813264) message] The system which generated this result transmitted reference range : <=125. The reference range was not used to interpret this result as normal/abnormal . JENNIFFER (test code = JENNIFFER) Biotin has been reported to cause a negative bias, interpret results relative to patient's use of biotin. Lab Interpretation Abnormal (test code = 08373-6) [facility] [id number] 14:14:29 Test Item Value Reference Range Interpretation Comments IRON (test code = 5091096800) 42 ug/dL 50-160 L TIBC (test code = 5192693777) 299 ug/dL 250-410 % FE SAT (test code = 2077212299) 14 % 20-50 L Lab Interpretation (test code = Abnormal 67422-2) [facility] GLUCOSE (AUTOMATED)2022-01-28 14:00:04 Test Item Value Reference Range Interpretation Comments POCT GLU (test code = 4743888846) 197 mg/dL 70-110 H Lab Interpretation (test code = Abnormal 21396-4) [facility] GLUCOSE (AUTOMATED)2022-01-28 13:01:52 Test Item Value Reference Range Interpretation Comments POCT GLU (test code = 5197556662) 211 mg/dL 70-110 H Lab Interpretation (test code = Abnormal 92249-4) [facility] [id number] 13:00:31 Test Item Value Reference Range Interpretation Comments FERRITIN (test code = 86.8 ng/mL 11.0-264.0 3914691666) JENNIFFER (test code = JENNIFFER) Biotin has been reported to cause a negative bias, interpret results relative to patient's use of biotin. Lab Interpretation (test Normal code = 75586-2) [facility]uda[facility]YRO[facility] STIMULATING [id number] 12:56:35 Test Item Value Reference Range Interpretation Comments TSH (test code = See_Comment [Automated message] 8071540548) The system [employer] generated this result transmitted ref erence range: 0.45 - 4 .70 mIU/L. The refe rence range was not u sed to interpret this result as normal/abnor mal. Lab Interpretation (test Normal code = 01722-7) [facility]udaSEDIMENTATION [id number] 12:41:55 Test Item Value Reference Range Interpretation Comments ESR (test code = See_Comment H [Automated message] 5469930075) The system [employer] generated this result transmitted ref erence range: 0 - 20 m m/HR. The reference r josselyn was not used to interpret this result as normal/abnor mal. Lab Interpretation (test Abnormal code = 76656-5) [facility]udaTROP[facility] [id number] 12:38:13 Test Item Value Reference Interpretation Comments Range TROPONIN I (test 0.003 ng/mL See_Comment [Automated code = 0318339438) message] The system which generated this result [...] biotin. Lab Interpretation Normal (test code = 91180-8) [facility] [id number] 12:34:52 Test Item Value Reference Range Interpretation Comments NT-proBNP (test code 1150 pg/mL See_Comment H [Autom ated = 8381828790) message] The system which generated this result transmitted reference range : <=125. The reference range was not used to interpret this result as normal/abnormal . JENNIFFER (test code = JENNIFFER) Biotin has been reported to cause a negative bias, interpret results relative to patient's use of biotin. Lab Interpretation Abnormal (test code = 53367-9) [facility] BudaLIPID PANEL (52537)(TOTAL CHOLESTEROL, TRIGLYCERIDES, HDL)2022-01-28 12:26:13 Test Item Value Reference Range Interpretation Comments CHOL (test code = 122 mg/dL 120-200 6460923763) HDL (test code = 27 mg/dL >50 L 5248756095) HDLC RATIO (test code = See_Comment [Au tomated message] 2794554350) The system [employer] generated this result transmit alden reference range : <=4.5. The refe rence range was not u sed to interpret th is result as normal/abnormal . TRIG (test code = 249 mg/dL 30-170 H 8307560361) LDL CHOL (test code = 45 mg/dL See_Comment [Auto mated message] 79790-1) The system [employer] generated this result transmit alden reference range : <=160. The refe rence range was not u sed to interpret th is result as normal/abnormal . VLDL (test code = 50 mg/dL 5-60 7638394267) Lab Interpretation (test Abnormal code = 54643-0) [facility]udaMAG[facility]2022-07-06 12:26:13 Test Item Value Reference Range Interpretation Comments MAGNESIUM (test code = 7986896290) 1.9 mg/dL 1.7-2.4 Lab Interpretation (test code = Normal 23073-9) [facility]udaCOM[facility] METABOLIC PANEL (23307)2022-01-28 12:25:53 Test Item Value Reference Range Interpretation Comments NA (test code = 141 mmol/L 135-145 1675296011) K (test code = 4.9 mmol/L 3.5-5.0 1738983516) CL (test code = 101 mmol/L 98-108 2493217542) CO2 TOTAL (test code = 32 mmol/L 23-31 H 6323122449) AGAP (test code = 2-16 9248812735) BUN (test code = 20 mg/dL 7-23 1386179603) GLUCOSE (test code = 217 mg/dL 70-110 H 6533042325) CREATININE (test code = 1.05 mg/dL 0.50-1.04 H 1369336107) TOTAL BILI (test code = 0.7 mg/dL 0.1-1.0 7687075953) CALCIUM (test code = 8.5 mg/dL 8.6-10.6 L 8499224642) T PROTEIN (test code = 7.2 g/dL 6.3-8.2 4426932179) ALBUMIN (test code = 3.9 g/dL 3.5-5.0 3238573823) ALK PHOS (test code = 161 U/L 34-122 H 3378141208) ALTv (test code = 50 U/L 5-35 H 1742-6) AST(SGOT) (test code = 61 U/L 13-40 H 7355638916) eGFR (test code = mL/min/1.73m2 8631555270) JENNIFFER (test code = JENNIFFER) Association of [...] tests). Lab Interpretation Abnormal (test code = 61047-9) [facility]udaPHOSPHORUS2022-07-06 12:25:53 Test Item Value Reference Range Interpretation Comments PHOSPHORUS (test code = 6172366574) 5.3 mg/dL 2.5-5.0 H Lab Interpretation (test code = Abnormal 33498-8) [facility] BudaURIC [id number] 12:25:33 Test Item Value Reference Range Interpretation Comments URIC ACID (test code = 5296942390) 9.5 mg/dL 2.9-6.0 H Lab Interpretation (test code = Abnormal 80768-3) [facility]udaCREATINE [id number] 12:25:13 Test Item Value Reference Range Interpretation Comments CK (test code = 4938525683) 27 U/L 33-194 L Lab Interpretation (test code = Abnormal 32193-9) [facility] BudaGLYCOSYLATED HEMOGLOBIN (A1C)2022-01-28 07:50:20 Test Item Value Reference Range Interpretation Comments HGB A1C (test code = 8.9 % 4.0-5.7 H 4548-4) JENNIFFER (test code = JENNIFFER) Reference RangesNormal: <5.7%Prediabetes: 5.7 - 6.4%Diabetes: > 6.5% Lab Interpretation (test Abnormal code = 80579-2) [facility]udaTROPONIN [id number] 03:04:27 Test Item Value Reference Interpretation Comments Range TROPONIN I (test 0.002 ng/mL See_Comment [Automated code = 3321468616) message] The system which generated this result [...] biotin. Lab Interpretation Normal (test code = 51406-3) [facility]uda[facility] [id number] 03:01:09 Test Item Value Reference Range Interpretation Comments NT-proBNP (test code 358 pg/mL See_Comment H [Autom ated = 2820920092) message] The system which generated this result transmitted reference range : <=125. The reference range was not used to interpret this result as normal/abnormal . JENNIFFER (test code = JENINFFER) Biotin has been reported to cause a negative bias, interpret results relative to patient's use of biotin. Lab Interpretation Abnormal (test code = 48574-2) [facility] BudaACTIVATED PARTIAL THRMPLAS [id number] 02:54:28 Test Item Value Reference Range Interpretation Comments APTT Patient (test See_Comment [Automat ed code = 3173-2) message] The system which generated this result transmitted reference range : 23 - 38 Seconds . The reference range was not used to interpr et this result as normal/abnormal . JENNIFFER (test code = JENNIFFER) The [facility] patient population mean normal value for aPTT is 30 seconds. Lab Interpretation Normal (test code = 65973-9) [facility]. METABOLIC PANEL (52756)2022-01-28 02:52:27 Test Item Value Reference Range Interpretation Comments NA (test code = 137 mmol/L 135-145 5527534400) K (test code = 5.0 mmol/L 3.5-5.0 4702488224) CL (test code = 101 mmol/L 98-108 0551948779) CO2 TOTAL (test code = 22 mmol/L 23-31 L 1795959714) AGAP (test code = 2-16 3511298513) BUN (test code = 21 mg/dL 7-23 1895526789) GLUCOSE (test code = 334 mg/dL 70-110 H 0172726075) CREATININE (test code = 1.03 mg/dL 0.50-1.04 1274478250) TOTAL BILI (test code = 0.8 mg/dL 0.1-1.9 8202605496) CALCIUM (test code = 9.0 mg/dL 8.6-10.6 7454642882) T PROTEIN (test code = 7.3 g/dL 6.3-8.2 7225419469) ALBUMIN (test code = 4.2 g/dL 3.5-5.0 0913370852) ALK PHOS (test code = 186 U/L 34-122 H 5218602992) ALTv (test code = 53 U/L 5-35 H 1742-6) AST(SGOT) (test code = 98 U/L 13-40 H 7143017302) eGFR (test code = mL/min/1.73m2 8165562836) JENNIFFER (test code = JENNIFFER) Association of [...] tests). Lab Interpretation Abnormal (test code = 22010-1) [facility] BudaPROTHROMBIN TIME / [id number] 02:51:06 Test Item Value Reference Range Interpretation [...] tions. Lab Interpretation (test Normal code = 31627-6) [facility] BudaCBC WITH [id number] 02:43:03 Test Item Value Reference Range Interpretation Comments WBC (test code = See_Comment [Automated 9790-2) message] The sy stem which generated this result transmitted reference range : 4.30 - 11.10 10*3/?L. The reference range was not used to interpret this result as normal/abnormal . RBC (test code = See_Comment L [Automated 849-8) message] The sy stem which generated this [...] RDW-SD (test code = 49.4 fL 39.0-49.9 60791-3) RDW-CV (test code = 15.6 % 12.0-15.5 H 788-0) PLT (test code = See_Comment [Automated 777-3) message] The sy stem which generated this result transmitted reference range : 166 - 358 10*3/ ?L. The reference r josselyn was not used to interpret this result as normal/abnormal . MPV (test code = 9.7 fL 9.5-12.9 91759-3) NRBC/100 WBC (test See_Comment [Automat ed code = 1326518444) message] The system which generated this result transmitted reference range : 0.0 - 10.0 /100 WBCs. The refer ence range was not u sed to interpret th is result as normal/abnormal . NRBC x10^3 (test code <0.01 See_Comment [Auto mated = 3375773177) message] The s ystem which generated this result transmitted reference range : 10*3/?L. The reference range was not used to interpret this result as normal/abnormal . GRAN MAT (NEUT) % 88.0 % (test code = 770-8) IMM GRAN % (test code 0.60 % = 1125649535) LYMPH % (test code = 5.4 % 736-9) MONO % (test code = 4.5 % 5905-5) EOS % (test code = 0.9 % 713-8) BASO % (test code = 0.6 % 706-2) GRAN MAT x10^3(ANC) 9.50 10*3/uL 1.88-7.09 H (test code = 0742230745) IMM GRAN x10^3 (test 0.06 10*3/uL 0.00-0.06 code = 3550061011) LYMPH x10^3 (test code 0.58 10*3/uL 1.32-3.29 L = 731-0) MONO x10^3 (test code 0.49 10*3/uL 0.33-0.92 = 742-7) EOS x10^3 (test code = 0.10 10*3/uL 0.03-0.39 711-2) BASO x10^3 (test code 0.06 10*3/uL 0.01-0.07 = 704-7) Lab Interpretation Abnormal (test code = 38349-1) [facility]udaCOMP. METABOLIC PANEL (13064)2022-01-12 23:54:59 Test Item Value Reference Range Interpretation Comments NA (test code = 143 mmol/L 135-145 1859025601) K (test code = 4.1 mmol/L 3.5-5.0 2583779546) CL (test code = 103 mmol/L 98-108 5800838231) CO2 TOTAL (test code = 27 mmol/L 23-31 5785264999) AGAP (test code = 2-16 7386206807) BUN (test code = 12 mg/dL 7-23 5803566791) GLUCOSE (test code = 278 mg/dL 70-110 H 0087719078) CREATININE (test code = 0.61 mg/dL 0.50-1.04 5739338569) TOTAL BILI (test code = 0.6 mg/dL 0.1-1.4 5318021281) CALCIUM (test code = 9.6 mg/dL 8.6-10.6 0893042409) T PROTEIN (test code = 7.6 g/dL 6.3-8.2 7445552568) ALBUMIN (test code = 4.3 g/dL 3.5-5.0 5276109942) ALK PHOS (test code = 130 U/L 34-122 H 2509778898) ALTv (test code = 29 U/L 5-35 1742-6) AST(SGOT) (test code = 39 U/L 13-40 5868922122) eGFR (test code = mL/min/1.73m2 6006107363) JENNIFFER (test code = JENNIFFER) Association of [...] tests). Lab Interpretation Abnormal (test code = 00962-6) [facility] WITH [id number] 23:43:55 Test Item Value Reference Range Interpretation [...] (test code = 47.8 fL 39.0-49.9 Previous 83780-5) preliminary verified result was 48.1 fL on [...] (test code = 10.0 fL 9.5-12.9 Previous 32262-4) preliminary verified result was 9.9 fL on 2021 at 1842 CDT IPF % (test code = 3.9 % 1.3-7.7 Platelet count 9599783207) measured by fluorescence method. NRBC/100 WBC (test See_Comment [Automat ed code = 3614576619) message] The system which generated this result transmitted reference range : 0.0 - 10.0 /100 WBCs. The refer ence range was not u sed to interpret th is result as normal/abnormal . NRBC x10^3 (test code <0.01 See_Comment [Auto mated = 4919301915) message] The s ystem which generated this result transmitted reference range : 10*3/?L. The reference range was not used to interpret this result as normal/abnormal . GRAN MAT (NEUT) % 85.9 % (test code = 770-8) IMM GRAN % (test code 0.90 % = 0997417634) LYMPH % (test code = 4.7 % 736-9) MONO % (test code = 5.3 % 5905-5) EOS % (test code = 2.6 % 713-8) BASO % (test code = 0.6 % 706-2) GRAN MAT x10^3(ANC) 6.93 10*3/uL 1.88-7.09 (test code = 4685511191) IMM GRAN x10^3 (test 0.07 10*3/uL 0.00-0.06 H code = 4840651678) LYMPH x10^3 (test code 0.38 10*3/uL 1.32-3.29 L = 731-0) MONO x10^3 (test code 0.43 10*3/uL 0.33-0.92 = 742-7) EOS x10^3 (test code = 0.21 10*3/uL 0.03-0.39 711-2) BASO x10^3 (test code 0.05 10*3/uL 0.01-0.07 = 704-7) Lab Interpretation Abnormal (test code = 72193-4) [facility]uda[facility] + LACTIC [id number] 23:29:12 Test Item Value Reference Range Interpretation Comments PH (test code = 7.32-7.42 L 4267715520) PCO2 CELIA (test code = See_Comment H [Auto mated 2717586784) message] The sy stem which generated this result transmitted reference range : 41 - 51 mmHg. The reference range was not used to interpret this result as normal/abnormal . PO2 CELIA (test code = See_Comment HH [Autom ated 8520835299) message] The sy stem which generated this result transmitted reference range : 25 - 40 mmHg. The reference range was not used to interpret this result as normal/abnormal . HCO3 CELIA (test code = See_Comment H [Auto mated 7123011096) message] The sy stem which generated this result transmitted reference range : 24 - 28 mEq/L. The reference range was not used to interpret this result as normal/abnormal . AC VBE(BEAKER) (test mEq/L code = 8524029500) THB CELIA (test code = 12.1 g/dL 12.0-16.0 4616688708) %O2HB CELIA (test code = 90.8 % 52.0-63.0 H 6262446127) %COHB CELIA (test code = 0.0 % 0.0-1.5 7661815869) %METHB CELIA (test code = 0.0 % 0.4-1.5 L 3382003496) VOL%O2 CELIA (test code = 15.5 % 6.0-12.0 H 2940972576) NA (test code = 145 mmol/L 135-145 0526738563) K+ (test code = 4.1 mmol/L 3.5-5.0 5169138260) AC CA IONZ (test code = 5.30 mg/dL 4.50-5.30 4678857199) GLUCOSE (test code = 291 mg/dL 70-110 H 3724776819) LACTIC ACID (test code 1.04 mmol/L 0.50-2.20 = 1590203226) Lab Interpretation Abnormal (test code = 31880-9) [facility] GLUCOSE (AUTOMATED)2022-01-12 17:49:50 Test Item Value Reference Range Interpretation Comments POCT GLU (test code = 5278445721) 120 mg/dL 70-110 H Lab Interpretation (test code = Abnormal 37317-5) [facility] GLUCOSE (AUTOMATED)2022-01-12 13:25:37 Test Item Value Reference Range Interpretation Comments POCT GLU (test code = 4685267239) 76 mg/dL 70-110 Lab Interpretation (test code = Normal 97405-8) [facility] GLUCOSE (AUTOMATED)2022-01-12 05:53:23 Test Item Value Reference Range Interpretation Comments POCT GLU (test code = 9823397880) 107 mg/dL 70-110 Lab Interpretation (test code = Normal 35013-5) [facility] GLUCOSE (AUTOMATED)2022-01-11 23:03:13 Test Item Value Reference Range Interpretation Comments POCT GLU (test code = 7041033065) 142 mg/dL 70-110 H Lab Interpretation (test code = Abnormal 32930-2) [facility] GLUCOSE (AUTOMATED)2022-01-11 17:22:09 Test Item Value Reference Range Interpretation Comments POCT GLU (test code = 0749987644) 106 mg/dL 70-110 Lab Interpretation (test code = Normal 64837-9) [facility] GLUCOSE (AUTOMATED)2022-01-11 13:11:20 Test Item Value Reference Range Interpretation Comments POCT GLU (test code = 3196597429) 91 mg/dL 70-110 Lab Interpretation (test code = Normal 53398-3) [facility] METABOLIC PANEL (NA, K, CL, CO2, GLUCOSE, BUN, CREATININE, CA)2022-01-11 11:52:16 Test Item Value Reference Range Interpretation Comments NA (test code = 141 mmol/L 135-145 0096965626) K (test code = 3.7 mmol/L 3.5-5.0 0190933627) CL (test code = 100 mmol/L 98-108 2591113439) CO2 TOTAL (test code 30 mmol/L 23-31 = 1376620767) AGAP (test code = 2-16 2449701149) BUN (test code = 14 mg/dL 7-23 9273796607) GLUCOSE (test code = 85 mg/dL 70-110 2329063927) CREATININE (test code 0.62 mg/dL 0.50-1.04 = 2151448123) CALCIUM (test code = 8.9 mg/dL 8.6-10.6 8234761383) eGFR (test code = mL/min/1.73m2 8620125573) JENNIFFER (test code = JENNIFFER) Association of [...] or urine or abnormalities in imaging tests). [facility] 11:52:16 Test Item Value Reference Range Interpretation Comments MAGNESIUM (test code = 6459549502) 1.9 mg/dL 1.7-2.4 Lab Interpretation (test code = Normal 17067-7) [facility]2022-01-11 11:36:18 Test Item Value Reference Range Interpretation Comments POCT GLU (test code = 6238862024) 95 mg/dL 70-110 Lab Interpretation (test code = Normal 01693-7) [facility] WITH [id number] 10:51:12 Test Item Value Reference Range Interpretation Comments WBC (test code = See_Comment [Automated 5490-2) message] The sy stem which generated this result transmitted reference range : 4.30 - 11.10 10*3/?L. The reference range was not used to interpret this result as normal/abnormal . RBC (test code = See_Comment L [Automated 879-8) message] The sy stem which generated this [...] RDW-SD (test code = 46.5 fL 39.0-49.9 57260-4) RDW-CV (test code = 14.3 % 12.0-15.5 788-0) PLT (test code = See_Comment [Automated 777-3) message] The sy stem which generated this result transmitted reference range : 166 - 358 10*3/ ?L. The reference r josselyn was not used to interpret this result as normal/abnormal . MPV (test code = 8.5 fL 9.5-12.9 L 83676-7) NRBC/100 WBC (test See_Comment [Automat ed code = 5563885212) message] The system which generated this result transmitted reference range : 0.0 - 10.0 /100 WBCs. The refer ence range was not u sed to interpret th is result as normal/abnormal . NRBC x10^3 (test code <0.01 See_Comment [Auto mated = 5205324640) message] The s ystem which generated this result transmitted reference range : 10*3/?L. The reference range was not used to interpret this result as normal/abnormal . GRAN MAT (NEUT) % 72.4 % (test code = 770-8) IMM GRAN % (test code 0.60 % = 9459072128) LYMPH % (test code = 12.0 % 736-9) MONO % (test code = 9.8 % 5905-5) EOS % (test code = 4.4 % 713-8) BASO % (test code = 0.8 % 706-2) GRAN MAT x10^3(ANC) 4.64 10*3/uL 1.88-7.09 (test code = 7808134478) IMM GRAN x10^3 (test 0.04 10*3/uL 0.00-0.06 code = 3567927597) LYMPH x10^3 (test code 0.77 10*3/uL 1.32-3.29 L = 731-0) MONO x10^3 (test code 0.63 10*3/uL 0.33-0.92 = 742-7) EOS x10^3 (test code = 0.28 10*3/uL 0.03-0.39 711-2) BASO x10^3 (test code 0.05 10*3/uL 0.01-0.07 = 704-7) Lab Interpretation Abnormal (test code = 48121-9) [facility] GLUCOSE (AUTOMATED)2022-01-11 04:16:05 Test Item Value Reference Range Interpretation Comments POCT GLU (test code = 6947889842) 100 mg/dL 70-110 Lab Interpretation (test code = Normal 21608-9) [facility] GLUCOSE (AUTOMATED)2022-01-10 22:37:14 Test Item Value Reference Range Interpretation Comments POCT GLU (test code = 9909844794) 109 mg/dL 70-110 Lab Interpretation (test code = Normal 11541-9) [facility] GLUCOSE (AUTOMATED)2022-01-10 16:49:31 Test Item Value Reference Range Interpretation Comments POCT GLU (test code = 2653275403) 151 mg/dL 70-110 H Lab Interpretation (test code = Abnormal 12388-8) [facility] GLUCOSE (AUTOMATED)2022-01-10 13:04:04 Test Item Value Reference Range Interpretation Comments POCT GLU (test code = 7210459477) 133 mg/dL 70-110 H Lab Interpretation (test code = Abnormal 52243-7) [facility] GLUCOSE (AUTOMATED)2022-01-10 10:48:27 Test Item Value Reference Range Interpretation Comments POCT GLU (test code = 2419521706) 140 mg/dL 70-110 H Lab Interpretation (test code = Abnormal 55716-0) [facility] METABOLIC PANEL (NA, K, CL, CO2, GLUCOSE, BUN, CREATININE, CA)2022-01-10 07:43:41 Test Item Value Reference Range Interpretation Comments NA (test code = 139 mmol/L 135-145 8763615861) K (test code = 4.1 mmol/L 3.5-5.0 4086267285) CL (test code = 100 mmol/L 98-108 5373073096) CO2 TOTAL (test code = 32 mmol/L 23-31 H 5168471520) AGAP (test code = 2-16 0464294858) BUN (test code = 18 mg/dL 7-23 5805100719) GLUCOSE (test code = 146 mg/dL 70-110 H 8903344400) CREATININE (test code = 0.79 mg/dL 0.50-1.04 2955362897) CALCIUM (test code = 8.7 mg/dL 8.6-10.6 3584720979) eGFR (test code = mL/min/1.73m2 5749283177) JENNIFFER (test code = JENNIFFER) Association of [...] tests). Lab Interpretation Abnormal (test code = 22415-3) [facility] Test Item Value Reference Range Interpretation Comments MAGNESIUM (test code = 8615582526) 2.1 mg/dL 1.7-2.4 Lab Interpretation (test code = Normal 30221-2) General acute hospital WITH [id number] 07:29:01 Test Item Value Reference Range Interpretation [...] RDW-SD (test code = 47.2 fL 39.0-49.9 67875-5) RDW-CV (test code = 14.1 % 12.0-15.5 788-0) PLT (test code = See_Comment [Automated 777-3) message] The sy stem which generated this result transmitted reference range : 166 - 358 10*3/ ?L. The reference r josselyn was not used to interpret this result as normal/abnormal . MPV (test code = 8.3 fL 9.5-12.9 L 26798-7) NRBC/100 WBC (test See_Comment [Automat ed code = 3019027277) message] The system which generated this result transmitted reference range : 0.0 - 10.0 /100 WBCs. The refer ence range was not u sed to interpret th is result as normal/abnormal . NRBC x10^3 (test code <0.01 See_Comment [Auto mated = 9807384753) message] The [employer] which generated this result transmitted reference range : 10*3/?L. The reference range was not used to interpret this result as normal/abnormal . GRAN MAT (NEUT) % 75.5 % (test code = 770-8) IMM GRAN % (test code 0.50 % = 8907755386) LYMPH % (test code = 13.6 % 736-9) MONO % (test code = 5.4 % 5905-5) EOS % (test code = 4.4 % 713-8) BASO % (test code = 0.6 % 706-2) GRAN MAT x10^3(ANC) 5.01 10*3/uL 1.88-7.09 (test code = 5409672363) IMM GRAN x10^3 (test 0.03 10*3/uL 0.00-0.06 code = 1758445893) LYMPH x10^3 (test code 0.90 10*3/uL 1.32-3.29 L = 731-0) MONO x10^3 (test code 0.36 10*3/uL 0.33-0.92 = 742-7) EOS x10^3 (test code = 0.29 10*3/uL 0.03-0.39 711-2) BASO x10^3 (test code 0.04 10*3/uL 0.01-0.07 = 704-7) Lab Interpretation Abnormal (test code = 99422-6) [facility] GLUCOSE (AUTOMATED)2022-01-10 04:49:48 Test Item Value Reference Range Interpretation Comments POCT GLU (test code = 0315287055) 150 mg/dL 70-110 H Lab Interpretation (test code = Abnormal 74897-0) [facility] GLUCOSE (AUTOMATED)2022-01-09 17:24:10 Test Item Value Reference Range Interpretation Comments POCT GLU (test code = 3651071726) 114 mg/dL 70-110 H Lab Interpretation (test code = Abnormal 87753-7) [facility] GLUCOSE (AUTOMATED)2022-01-09 12:48:19 Test Item Value Reference Range Interpretation Comments POCT GLU (test code = 8247821609) 107 mg/dL 70-110 Lab Interpretation (test code = Normal 21633-2) [facility] (NA, K, CL, CO2, GLUCOSE, BUN, CREATININE, CA)2022-01-09 11:11:00 Test Item Value Reference Range Interpretation Comments NA (test code = 141 mmol/L 135-145 7782795104) K (test code = 3.7 mmol/L 3.5-5.0 7929574511) CL (test code = 100 mmol/L 98-108 3047461056) CO2 TOTAL (test code = 32 mmol/L 23-31 H 1721796643) AGAP (test code = 2-16 3953382164) BUN (test code = 19 mg/dL 7-23 2516255302) GLUCOSE (test code = 115 mg/dL 70-110 H 0330685106) CREATININE (test code = 0.81 mg/dL 0.50-1.04 0673490004) CALCIUM (test code = 8.6 mg/dL 8.6-10.6 5916920225) eGFR (test code = mL/min/1.73m2 6543110591) JENNIFFER (test code = JENNIFFER) Association of [...] tests). Lab Interpretation Abnormal (test code = 79318-1) [facility] WITH [id number] 10:57:57 Test Item Value Reference Range Interpretation [...] RDW-SD (test code = 49.1 fL 39.0-49.9 42186-8) RDW-CV (test code = 14.6 % 12.0-15.5 788-0) PLT (test code = See_Comment [Automated 777-3) message] The sy stem which generated this result transmitted reference range : 166 - 358 10*3/ ?L. The reference r josselyn was not used to interpret this result as normal/abnormal . MPV (test code = 8.6 fL 9.5-12.9 L 88302-9) NRBC/100 WBC (test See_Comment [Automat ed code = 1849330675) message] The system which generated this result transmitted reference range : 0.0 - 10.0 /100 WBCs. The refer ence range was not u sed to interpret th is result as normal/abnormal . NRBC x10^3 (test code <0.01 See_Comment [Auto mated = 4069037888) message] The s ystem which generated this result transmitted reference range : 10*3/?L. The reference range was not used to interpret this result as normal/abnormal . GRAN MAT (NEUT) % 79.2 % (test code = 770-8) IMM GRAN % (test code 0.40 % = 9524419770) LYMPH % (test code = 10.7 % 736-9) MONO % (test code = 5.4 % 5905-5) EOS % (test code = 3.5 % 713-8) BASO % (test code = 0.8 % 706-2) GRAN MAT x10^3(ANC) 6.15 10*3/uL 1.88-7.09 (test code = 7783503463) IMM GRAN x10^3 (test 0.03 10*3/uL 0.00-0.06 code = 4800258531) LYMPH x10^3 (test code 0.83 10*3/uL 1.32-3.29 L = 731-0) MONO x10^3 (test code 0.42 10*3/uL 0.33-0.92 = 742-7) EOS x10^3 (test code = 0.27 10*3/uL 0.03-0.39 711-2) BASO x10^3 (test code 0.06 10*3/uL 0.01-0.07 = 704-7) Lab Interpretation Abnormal (test code = 37609-0) [facility] GLUCOSE (AUTOMATED)2022-01-09 10:44:16 Test Item Value Reference Range Interpretation Comments POCT GLU (test code = 5685285584) 116 mg/dL 70-110 H Lab Interpretation (test code = Abnormal 16408-6) [facility] GLUCOSE (AUTOMATED)2022-01-09 04:22:02 Test Item Value Reference Range Interpretation Comments POCT GLU (test code = 5128943263) 124 mg/dL 70-110 H Lab Interpretation (test code = Abnormal 58503-4) [facility] GLUCOSE (AUTOMATED)2022-01-08 23:21:27 Test Item Value Reference Range Interpretation Comments POCT GLU (test code = 7074095999) 122 mg/dL 70-110 H Lab Interpretation (test code = Abnormal 27034-1) [facility] GLUCOSE (AUTOMATED)2022-01-08 18:15:20 Test Item Value Reference Range Interpretation Comments POCT GLU (test code = 2694009927) 104 mg/dL 70-110 Lab Interpretation (test code = Normal 49335-6) [facility] GLUCOSE (AUTOMATED)2022-01-08 13:35:04 Test Item Value Reference Range Interpretation Comments POCT GLU (test code = 7922728119) 132 mg/dL 70-110 H Lab Interpretation (test code = Abnormal 17215-5) [facility] METABOLIC PANEL (NA, K, CL, CO2, GLUCOSE, BUN, CREATININE, CA)2022-01-08 11:08:57 Test Item Value Reference Range Interpretation Comments NA (test code = 142 mmol/L 135-145 9866411093) K (test code = 3.5 mmol/L 3.5-5.0 6736839377) CL (test code = 99 mmol/L 98-108 4766795606) CO2 TOTAL (test code = 34 mmol/L 23-31 H 4134216862) AGAP (test code = 2-16 9701182990) BUN (test code = 16 mg/dL 7-23 2699030070) GLUCOSE (test code = 131 mg/dL 70-110 H 4059388817) CREATININE (test code = 0.83 mg/dL 0.50-1.04 4602106890) CALCIUM (test code = 8.5 mg/dL 8.6-10.6 L 1151156179) eGFR (test code = mL/min/1.73m2 8568971000) JENNIFFER (test code = JENNIFFER) Association of [...] tests). Lab Interpretation Abnormal (test code = 42275-7) [facility] acute hospital WITH [id number] 10:58:37 Test Item Value Reference Range Interpretation Comments WBC (test code = See_Comment [Automated 3190-2) message] The sy stem which generated this result transmitted reference range : 4.30 - 11.10 10*3/?L. The reference range was not used to interpret this result as normal/abnormal . RBC (test code = See_Comment L [Automated 699-8) message] The sy stem which generated this [...] RDW-SD (test code = 48.8 fL 39.0-49.9 17177-8) RDW-CV (test code = 14.7 % 12.0-15.5 788-0) PLT (test code = See_Comment [Automated 777-3) message] The sy stem which generated this result transmitted reference range : 166 - 358 10*3/ ?L. The reference r josselyn was not used to interpret this result as normal/abnormal . MPV (test code = 8.5 fL 9.5-12.9 L 35814-2) NRBC/100 WBC (test See_Comment [Automat ed code = 3294560915) message] The system which generated this result transmitted reference range : 0.0 - 10.0 /100 WBCs. The refer ence range was not u sed to interpret th is result as normal/abnormal . NRBC x10^3 (test code <0.01 See_Comment [Auto mated = 5391255018) message] The s ystem which generated this result transmitted reference range : 10*3/?L. The reference range was not used to interpret this result as normal/abnormal . GRAN MAT (NEUT) % 75.9 % (test code = 770-8) IMM GRAN % (test code 0.30 % = 1155062869) LYMPH % (test code = 12.3 % 736-9) MONO % (test code = 7.0 % 5905-5) EOS % (test code = 3.6 % 713-8) BASO % (test code = 0.9 % 706-2) GRAN MAT x10^3(ANC) 4.89 10*3/uL 1.88-7.09 (test code = 2428475610) IMM GRAN x10^3 (test <0.03 0.00-0.06 code = 3066660938) LYMPH x10^3 (test code 0.79 10*3/uL 1.32-3.29 L = 731-0) MONO x10^3 (test code 0.45 10*3/uL 0.33-0.92 = 742-7) EOS x10^3 (test code = 0.23 10*3/uL 0.03-0.39 711-2) BASO x10^3 (test code 0.06 10*3/uL 0.01-0.07 = 704-7) Lab Interpretation Abnormal (test code = 55749-6) [facility] GLUCOSE (AUTOMATED)2022-01-08 10:57:56 Test Item Value Reference Range Interpretation Comments POCT GLU (test code = 1802754250) 122 mg/dL 70-110 H Lab Interpretation (test code = Abnormal 27343-3) [facility] GLUCOSE (AUTOMATED)2022-01-08 05:44:22 Test Item Value Reference Range Interpretation Comments POCT GLU (test code = 8518430000) 150 mg/dL 70-110 H Lab Interpretation (test code = Abnormal 08006-1) [facility] GLUCOSE (AUTOMATED)2022-01-07 22:00:04 Test Item Value Reference Range Interpretation Comments POCT GLU (test code = 1094869480) 175 mg/dL 70-110 H Lab Interpretation (test code = Abnormal 67194-2) [facility] GLUCOSE (AUTOMATED)2022-01-07 17:25:35 Test Item Value Reference Range Interpretation Comments POCT GLU (test code = 9277749536) 149 mg/dL 70-110 H Lab Interpretation (test code = Abnormal 60205-0) [facility] Culture - Peripheral [id number] 15:01:23 Test Item Value Reference Range Interpretation Comments Blood Culture-Aerobic No organisms No growth Previo us (test code = 12955-6) isolated prelim inary verified result was Culture [...] Culture-Anaerobic isolated preliminar y (test code = 08104-0) verifi ed result was Culture In Progress on 01/02/2022 at 13 01 CDTPrevious preliminary verified result was No growth a t 24 hours on 01/03/2022 at 10 01 CDTPrevious preliminary verified result was No growth a t 48 hours on 01/04/2022 at 10 01 CDTPrevious preliminary verified result was No growth a t 72 hours on 01/05/2022 at 10 01 CDT Lab Interpretation Normal (test code = 58448-3) [facility] Vein # [id number] 15:01:23 Test Item Value Reference Range Interpretation Comments Blood Culture-Aerobic No organisms No growth Previo us (test code = 25468-5) isolated prelim inary verified result was Culture In Progress on 01/02/2022 at 13 01 CDTPrevious preliminary verified result was No growth a t 24 hours on 01/03/2022 at 10 01 CDTPrevious preliminary verified result was No growth a t 48 hours on 01/04/2022 at 10 01 CDTPrevious preliminary verified result was No growth a t 72 hours on 01/05/2022 at 10 01 CDT Blood No organisms No growth Previous Culture-Anaerobic isolated preliminar y (test code = 01050-3) verifi ed result was Culture In Progress on 01/02/2022 at 13 01 CDTPrevious preliminary verified result was No growth a t 24 hours on 01/03/2022 at 10 01 CDTPrevious preliminary verified result was No growth a t 48 hours on 01/04/2022 at 10 01 CDTPrevious preliminary verified result was No growth a t 72 hours on 01/05/2022 at 10 01 CDT Lab Interpretation Normal (test code = 35765-1) [facility]22-[facility]-07 13:20:20 Test Item Value Reference Range Interpretation Comments POCT GLU (test code = 4987437479) 153 mg/dL 70-110 H Lab Interpretation (test code = Abnormal 20898-7) [facility] (NA, K, CL, CO2, GLUCOSE, BUN, CREATININE, CA)2022-01-07 07:43:22 Test Item Value Reference Range Interpretation Comments NA (test code = 141 mmol/L 135-145 5271379732) K (test code = 3.8 mmol/L 3.5-5.0 0337405761) CL (test code = 101 mmol/L 98-108 6324229878) CO2 TOTAL (test code = 33 mmol/L 23-31 H 3501682625) AGAP (test code = 2-16 0205264270) BUN (test code = 13 mg/dL 7-23 4573625660) GLUCOSE (test code = 127 mg/dL 70-110 H 7351335523) CREATININE (test code = 0.89 mg/dL 0.50-1.04 0182048018) CALCIUM (test code = 8.4 mg/dL 8.6-10.6 L 0136799023) eGFR (test code = mL/min/1.73m2 1991451522) JENNIFFER (test code = JENNIFFER) Association of [...] tests). Lab Interpretation Abnormal (test code = 21848-7) General acute hospital with [id number] 07:29:22 Test Item Value Reference Range Interpretation Comments WBC (test code = See_Comment [Automated 9428-2) message] The sy stem which generated this [...] RDW-SD (test code = 48.2 fL 39.0-49.9 64679-4) RDW-CV (test code = 14.7 % 12.0-15.5 788-0) PLT (test code = See_Comment [Automated 777-3) message] The sy stem which generated this result transmitted reference range : 166 - 358 10*3/ ?L. The reference r josselyn was not used to interpret this result as normal/abnormal . MPV (test code = 9.0 fL 9.5-12.9 L 86607-9) NRBC/100 WBC (test See_Comment [Automat ed code = 8886457883) message] The system which generated this result transmitted reference range : 0.0 - 10.0 /100 WBCs. The refer ence range was not u sed to interpret th is result as normal/abnormal . NRBC x10^3 (test code <0.01 See_Comment [Auto mated = 1169036062) message] The s ystem which generated this result transmitted reference range : 10*3/?L. The reference range was not used to interpret this result as normal/abnormal . GRAN MAT (NEUT) % 81.4 % (test code = 770-8) IMM GRAN % (test code 0.30 % = 3320781895) LYMPH % (test code = 10.3 % 736-9) MONO % (test code = 4.6 % 5905-5) EOS % (test code = 2.8 % 713-8) BASO % (test code = 0.6 % 706-2) GRAN MAT x10^3(ANC) 6.39 10*3/uL 1.88-7.09 (test code = 4500915567) IMM GRAN x10^3 (test <0.03 0.00-0.06 code = 3037796465) LYMPH x10^3 (test code 0.81 10*3/uL 1.32-3.29 L = 731-0) MONO x10^3 (test code 0.36 10*3/uL 0.33-0.92 = 742-7) EOS x10^3 (test code = 0.22 10*3/uL 0.03-0.39 711-2) BASO x10^3 (test code 0.05 10*3/uL 0.01-0.07 = 704-7) Lab Interpretation Abnormal (test code = 85866-4) [facility] 05:54:55 Test Item Value Reference Range Interpretation Comments POCT GLU (test code = 2759237560) 125 mg/dL 70-110 H Lab Interpretation (test code = Abnormal 67213-5) [facility] [id number] 04:01:23 Test Item Value Reference Range Interpretation Comments Blood Culture-Aerobic No organisms No growth Previo us (test code = 68543-9) isolated prelim inary verified result was Culture [...] Culture-Anaerobic isolated preliminar y (test code = 34186-3) verifi ed result was Culture In Progress on 01/02/2022 at 07 26 CDTPrevious preliminary verified result was No growth a t 24 hours on 01/02/2022 at 22 CDTPrevious preliminary verified result was No growth a t 48 hours on 01/03/2022 at 22 CDTPrevious preliminary verified result was No growth a t 72 hours on 01/04/2022 at 22 01 CDT JENNIFFER (test code = JENNIFFER) Optimal blood volume for culture is 8-10 mL per bottle. A suboptimal volume of blood was collected for this culture, which could adversely affect recovery and/or time of detection of organisms. Interpret results accordingly. Lab Interpretation Normal (test code = 26097-7) [facility] [id number] 03:01:22 Test Item Value Reference Range Interpretation Comments Blood Culture-Aerobic No organisms No growth Previo us (test code = 89696-6) isolated prelim inary verified result was Culture In Progress on 01/02/2022 at 01 CDTPrevious preliminary verified result was No growth a t 24 hours on 01/02/2022 at 22 01 CDTPrevious preliminary verified result was No growth a t 48 hours on 01/03/2022 at 22 01 CDTPrevious preliminary verified result was No growth a t 72 hours on 01/04/2022 at 22 01 CDT Blood No organisms No growth Previous Culture-Anaerobic isolated preliminar y (test code = 77473-8) verifi ed result was Culture In Progress on 01/02/2022 at 01 CDTPrevious preliminary verified result was No growth a t 24 hours on 01/02/2022 at 22 01 CDTPrevious preliminary verified result was No growth a t 48 hours on 01/03/2022 at 22 01 CDTPrevious preliminary verified result was No growth a t 72 hours on 01/04/2022 at 22 01 CDT JENNIFFER (test code = JENNIFFER) Optimal blood volume for culture is 8-10 mL per bottle. A suboptimal volume of blood was collected for this culture, which could adversely affect recovery and/or time of detection of organisms. Interpret results accordingly. Lab Interpretation Normal (test code = 89446-3) [facility] GLUCOSE (AUTOMATED)2022-01-06 23:38:26 Test Item Value Reference Range Interpretation Comments POCT GLU (test code = 0881113074) 181 mg/dL 70-110 H Lab Interpretation (test code = Abnormal 72564-0) [facility] GLUCOSE (AUTOMATED)2022-01-06 22:44:50 Test Item Value Reference Range Interpretation Comments POCT GLU (test code = 2278965254) 198 mg/dL 70-110 H Lab Interpretation (test code = Abnormal 04548-0) [facility] GLUCOSE (AUTOMATED)2022-01-06 17:41:24 Test Item Value Reference Range Interpretation Comments POCT GLU (test code = 8052868832) 172 mg/dL 70-110 H Lab Interpretation (test code = Abnormal 05261-8) [facility] GLUCOSE (AUTOMATED)2022-01-06 13:48:08 Test Item Value Reference Range Interpretation Comments POCT GLU (test code = 2284811923) 175 mg/dL 70-110 H Lab Interpretation (test code = Abnormal 06336-8) [facility] METABOLIC PANEL (NA, K, CL, CO2, GLUCOSE, BUN, CREATININE, CA)2022-01-06 09:39:37 Test Item Value Reference Range Interpretation Comments NA (test code = 139 mmol/L 135-145 4725095641) K (test code = 3.6 mmol/L 3.5-5.0 7635788185) CL (test code = 104 mmol/L 98-108 8910624123) CO2 TOTAL (test code = 30 mmol/L 23-31 3878651133) AGAP (test code = 2-16 1987905825) BUN (test code = 15 mg/dL 7-23 5599274028) GLUCOSE (test code = 164 mg/dL 70-110 H 0503813232) CREATININE (test code = 0.83 mg/dL 0.50-1.04 9059866019) CALCIUM (test code = 7.9 mg/dL 8.6-10.6 L 4917434810) eGFR (test code = mL/min/1.73m2 5338204220) JENNIFFER (test code = JENNIFFER) Association of [...] tests). Lab Interpretation Abnormal (test code = 13682-9) [facility] 09:39:37 Test Item Value Reference Range Interpretation Comments MAGNESIUM (test code = 0041692789) 2.5 mg/dL 1.7-2.4 H Lab Interpretation (test code = Abnormal 56698-7) [facility] 09:39:37 Test Item Value Reference Range Interpretation Comments PHOSPHORUS (test code = 5743896759) 3.8 mg/dL 2.5-5.0 Lab Interpretation (test code = Normal 38012-9) [facility] WITH [id number] 09:29:28 Test Item Value Reference Range Interpretation Comments WBC (test code = See_Comment [Automated 8090-2) message] The sy stem which generated this result transmitted reference range : 4.30 - 11.10 10*3/?L. The reference range was not used to interpret this result as normal/abnormal . RBC (test code = See_Comment L [Automated 639-8) message] The sy stem which generated this [...] RDW-SD (test code = 46.7 fL 39.0-49.9 40988-6) RDW-CV (test code = 14.5 % 12.0-15.5 788-0) PLT (test code = See_Comment [Automated 777-3) message] The sy stem which generated this result transmitted reference range : 166 - 358 10*3/ ?L. The reference r josselyn was not used to interpret this result as normal/abnormal . MPV (test code = 8.9 fL 9.5-12.9 L 13683-4) NRBC/100 WBC (test See_Comment [Automat ed code = 0129614522) message] The system which generated this result transmitted reference range : 0.0 - 10.0 /100 WBCs. The refer ence range was not u sed to interpret th is result as normal/abnormal . NRBC x10^3 (test code <0.01 See_Comment [Auto mated = 1499311963) message] The s ystem which generated this result transmitted reference range : 10*3/?L. The reference range was not used to interpret this result as normal/abnormal . GRAN MAT (NEUT) % 74.7 % (test code = 770-8) IMM GRAN % (test code 0.30 % = 3425395250) LYMPH % (test code = 15.5 % 736-9) MONO % (test code = 5.5 % 5905-5) EOS % (test code = 3.3 % 713-8) BASO % (test code = 0.7 % 706-2) GRAN MAT x10^3(ANC) 4.34 10*3/uL 1.88-7.09 (test code = 2506260523) IMM GRAN x10^3 (test <0.03 0.00-0.06 code = 4148666443) LYMPH x10^3 (test code 0.90 10*3/uL 1.32-3.29 L = 731-0) MONO x10^3 (test code 0.32 10*3/uL 0.33-0.92 L = 742-7) EOS x10^3 (test code = 0.19 10*3/uL 0.03-0.39 711-2) BASO x10^3 (test code 0.04 10*3/uL 0.01-0.07 = 704-7) Lab Interpretation Abnormal (test code = 75600-3) [facility] GLUCOSE (AUTOMATED)2022-01-05 20:46:31 Test Item Value Reference Range Interpretation Comments POCT GLU (test code = 8354593993) 175 mg/dL 70-110 H Lab Interpretation (test code = Abnormal 14029-7) [facility] GLUCOSE (AUTOMATED)2022-01-05 17:13:26 Test Item Value Reference Range Interpretation Comments POCT GLU (test code = 7310426088) 233 mg/dL 70-110 H Lab Interpretation (test code = Abnormal 07751-6) [facility] GLUCOSE (AUTOMATED)2022-01-05 13:24:19 Test Item Value Reference Range Interpretation Comments POCT GLU (test code = 2524364554) 208 mg/dL 70-110 H Lab Interpretation (test code = Abnormal 39502-9) [facility] METABOLIC PANEL (NA, K, CL, CO2, GLUCOSE, BUN, CREATININE, CA)2022-01-05 09:23:42 Test Item Value Reference Range Interpretation Comments NA (test code = 139 mmol/L 135-145 5990681487) K (test code = 3.7 mmol/L 3.5-5.0 4886418700) CL (test code = 102 mmol/L 98-108 8124254085) CO2 TOTAL (test code = 31 mmol/L 23-31 6999638577) AGAP (test code = 2-16 5076031275) BUN (test code = 19 mg/dL 7-23 5569535411) GLUCOSE (test code = 166 mg/dL 70-110 H 4211991473) CREATININE (test code = 0.85 mg/dL 0.50-1.04 1417092469) CALCIUM (test code = 8.1 mg/dL 8.6-10.6 L 7643946195) eGFR (test code = mL/min/1.73m2 7968334111) JENNIFFER (test code = JENNIFFER) Association of [...] tests). Lab Interpretation Abnormal (test code = 96113-1) [facility] 09:23:42 Test Item Value Reference Range Interpretation Comments MAGNESIUM (test code = 9208550214) 2.3 mg/dL 1.7-2.4 Lab Interpretation (test code = Normal 98693-6) [facility] 09:23:42 Test Item Value Reference Range Interpretation Comments PHOSPHORUS (test code = 6819327797) 3.5 mg/dL 2.5-5.0 Lab Interpretation (test code = Normal 27396-4) [facility] WITH [id number] 09:15:04 Test Item Value Reference Range Interpretation [...] RDW-SD (test code = 46.4 fL 39.0-49.9 28573-5) RDW-CV (test code = 14.4 % 12.0-15.5 788-0) PLT (test code = See_Comment [Automated 777-3) message] The sy stem which generated this result transmitted reference range : 166 - 358 10*3/ ?L. The reference r josselyn was not used to interpret this result as normal/abnormal . MPV (test code = 8.9 fL 9.5-12.9 L 08124-1) NRBC/100 WBC (test See_Comment [Automat ed code = 1293023794) message] The system which generated this result transmitted reference range : 0.0 - 10.0 /100 WBCs. The refer ence range was not u sed to interpret th is result as normal/abnormal . NRBC x10^3 (test code <0.01 See_Comment [Auto mated = 6839383962) message] The s ystem which generated this result transmitted reference range : 10*3/?L. The reference range was not used to interpret this result as normal/abnormal . GRAN MAT (NEUT) % 71.1 % (test code = 770-8) IMM GRAN % (test code 0.30 % = 9560804296) LYMPH % (test code = 17.7 % 736-9) MONO % (test code = 7.2 % 5905-5) EOS % (test code = 2.6 % 713-8) BASO % (test code = 1.1 % 706-2) GRAN MAT x10^3(ANC) 4.43 10*3/uL 1.88-7.09 (test code = 3396810331) IMM GRAN x10^3 (test <0.03 0.00-0.06 code = 7651575334) LYMPH x10^3 (test code 1.10 10*3/uL 1.32-3.29 L = 731-0) MONO x10^3 (test code 0.45 10*3/uL 0.33-0.92 = 742-7) EOS x10^3 (test code = 0.16 10*3/uL 0.03-0.39 711-2) BASO x10^3 (test code 0.07 10*3/uL 0.01-0.07 = 704-7) Lab Interpretation Abnormal (test code = 19649-4) [facility] GLUCOSE (AUTOMATED)2022-01-05 05:12:00 Test Item Value Reference Range Interpretation Comments POCT GLU (test code = 0604452275) 178 mg/dL 70-110 H Lab Interpretation (test code = Abnormal 43542-2) [facility] GLUCOSE (AUTOMATED)2022-01-04 22:12:41 Test Item Value Reference Range Interpretation Comments POCT GLU (test code = 8496714629) 154 mg/dL 70-110 H Lab Interpretation (test code = Abnormal 91923-4) [facility] GLUCOSE (AUTOMATED)2022-01-04 17:15:55 Test Item Value Reference Range Interpretation Comments POCT GLU (test code = 4504843870) 204 mg/dL 70-110 H Lab Interpretation (test code = Abnormal 93578-5) [facility] [facility] [id number] 13:56:02 Test Item Value Reference Range Interpretation Comments SPUTUM CULTURE 1+ Respiratory iveth: (test code = 622-1) Commensal upper respiratory microorganisms only. Gram stain (test No Epithelial cells code = 664-3) JENNIFFER (test code = Bacterial pathogens JENNIFFER) associated with lower respiratory infections were not identified, which include Pseudomonas aeruginosa and Staphylococcus aureus (MRSA or MSSA). [facility] - Please draw trough at [id number] 11:47:19 Test Item Value Reference Range Interpretation Comments VANCO TROUGH (test code 11.3 ug/mL 10.0-20.0 = 8295077904) JENNIFFER (test code = JENNIFFER) Toxic Range: ?>20 ug/mL 15-20 ug/mL is recommended for severe infection or when Vancomycin TORITO is greater than or equal to 2. Lab Interpretation (test Normal code = 77447-6) [facility] GLUCOSE (AUTOMATED)2022-01-04 11:19:57 Test Item Value Reference Range Interpretation Comments POCT GLU (test code = 8257673289) 189 mg/dL 70-110 H Lab Interpretation (test code = Abnormal 97705-3) [facility] METABOLIC PANEL (NA, K, CL, CO2, GLUCOSE, BUN, CREATININE, CA)2022-01-04 11:17:16 Test Item Value Reference Range Interpretation Comments NA (test code = 140 mmol/L 135-145 9886374194) K (test code = 3.3 mmol/L 3.5-5.0 L 8536875238) CL (test code = 99 mmol/L 98-108 6858234531) CO2 TOTAL (test code = 35 mmol/L 23-31 H 0522898660) AGAP (test code = 2-16 9577564528) BUN (test code = 18 mg/dL 7-23 1528154581) GLUCOSE (test code = 172 mg/dL 70-110 H 3412296144) CREATININE (test code = 0.89 mg/dL 0.50-1.04 0179368623) CALCIUM (test code = 8.2 mg/dL 8.6-10.6 L 8452858061) eGFR (test code = mL/min/1.73m2 0837888002) JENNIFFER (test code = JENNIFFER) Association of [...] tests). Lab Interpretation Abnormal (test code = 65902-9) [facility] 11:17:16 Test Item Value Reference Range Interpretation Comments MAGNESIUM (test code = 9415286666) 2.3 mg/dL 1.7-2.4 Lab Interpretation (test code = Normal 51953-7) [facility] 11:17:16 Test Item Value Reference Range Interpretation Comments PHOSPHORUS (test code = 5612844205) 2.7 mg/dL 2.5-5.0 Lab Interpretation (test code = Normal 60518-6) [facility]udaCB WITH [id number] 11:03:17 Test Item Value Reference Range Interpretation [...] RDW-SD (test code = 46.0 fL 39.0-49.9 37128-3) RDW-CV (test code = 14.4 % 12.0-15.5 788-0) PLT (test code = See_Comment [Automated 777-3) message] The sy stem which generated this result transmitted reference range : 166 - 358 10*3/ ?L. The reference r josselyn was not used to interpret this result as normal/abnormal . MPV (test code = 9.1 fL 9.5-12.9 L 67643-2) NRBC/100 WBC (test See_Comment [Automat ed code = 4839190919) message] The system which generated this result transmitted reference range : 0.0 - 10.0 /100 WBCs. The refer ence range was not u sed to interpret th is result as normal/abnormal . NRBC x10^3 (test code <0.01 See_Comment [Auto mated = 9133565084) message] The s ystem which generated this result transmitted reference range : 10*3/?L. The reference range was not used to interpret this result as normal/abnormal . GRAN MAT (NEUT) % 78.8 % (test code = 770-8) IMM GRAN % (test code 0.50 % = 7374540493) LYMPH % (test code = 11.8 % 736-9) MONO % (test code = 6.8 % 5905-5) EOS % (test code = 1.4 % 713-8) BASO % (test code = 0.7 % 706-2) GRAN MAT x10^3(ANC) 6.65 10*3/uL 1.88-7.09 (test code = 6781567432) IMM GRAN x10^3 (test 0.04 10*3/uL 0.00-0.06 code = 1199074739) LYMPH x10^3 (test code 1.00 10*3/uL 1.32-3.29 L = 731-0) MONO x10^3 (test code 0.57 10*3/uL 0.33-0.92 = 742-7) EOS x10^3 (test code = 0.12 10*3/uL 0.03-0.39 711-2) BASO x10^3 (test code 0.06 10*3/uL 0.01-0.07 = 704-7) Lab Interpretation Abnormal (test code = 84875-1) [facility] GLUCOSE (AUTOMATED)2022-01-04 06:29:40 Test Item Value Reference Range Interpretation Comments POCT GLU (test code = 4833598421) 211 mg/dL 70-110 H Lab Interpretation (test code = Abnormal 27838-2) [facility] GLUCOSE (AUTOMATED)2022-01-03 21:23:29 Test Item Value Reference Range Interpretation Comments POCT GLU (test code = 255 mg/dL 70-110 H Notifi ed Provider 1378640623) Lab Interpretation (test Abnormal code = 87297-7) [facility] GLUCOSE (AUTOMATED)2022-01-03 16:51:46 Test Item Value Reference Range Interpretation Comments POCT GLU (test code = 332 mg/dL 70-110 H Notifi ed Provider 2252210359) Lab Interpretation (test Abnormal code = 29590-9) [facility] GLUCOSE (AUTOMATED)2022-01-03 13:01:05 Test Item Value Reference Range Interpretation Comments POCT GLU (test code = 1167841768) 332 mg/dL 70-110 H Lab Interpretation (test code = Abnormal 91404-1) [facility]uda[facility] Panel 20 + Lactic [id number] 10:21:11 Test Item Value Reference Range Interpretation Comments PH (test code = 2) 7.35-7.45 PCO2 (test code = See_Comment H [Automate d 1529363426) message] The sy stem which generated this result transmitted reference range : 35 - 45 mmHg. The reference range was not used to interpret this result as normal/abnormal . PO2 (test code = See_Comment [Automated 4153031762) message] The sy stem which generated this result transmitted reference range : 80 - 100 mmHg. The reference range was not used to interpret this result as normal/abnormal . HCO3 (test code = See_Comment H [Automate d 2519892515) message] The sy stem which generated this result transmitted reference range : 22 - 26 mEq/L. The reference range was not used to interpret this result as normal/abnormal . BE (test code = See_Comment H [Automated 0881432103) message] The sy stem which generated this result transmitted reference range : -3.0 - 3.0 mEq/ L. The reference r josselyn was not used to interpret this result as normal/abnormal . THB (test code = 10.1 g/dL 12.0-16.0 L 1803359608) %O2HB (test code = 95.5 % 94.0-99.0 1695693710) %COHB ART (test code = 0.3 % 0.0-1.5 3361923699) %METHB ART (test code = 0.1 % 0.4-1.5 L 3637747463) VOL%O2 ART (test code = 13.7 % 15.0-23.0 L 3338711812) NA (test code = 138 mmol/L 135-145 4231916246) K+ (test code = 4.1 mmol/L 3.5-5.0 2530076445) AC CA IONZ (test code = 4.50 mg/dL 4.50-5.30 5710532032) GLUCOSE (test code = 325 mg/dL 70-110 H 1275272977) LACTIC ACID (test code 1.27 mmol/L 0.50-2.20 = 8661277467) Lab Interpretation Abnormal (test code = 95517-5) [facility]22-01-03 10:18:30 Test Item Value Reference Range Interpretation Comments POCT GLU (test code = 9304865363) 338 mg/dL 70-110 H Lab Interpretation (test code = Abnormal 66836-2) [facility] METABOLIC PANEL (NA, K, CL, CO2, GLUCOSE, BUN, CREATININE, CA)2022-01-03 09:15:37 Test Item Value Reference Range Interpretation Comments NA (test code = 141 mmol/L 135-145 6724756706) K (test code = 4.3 mmol/L 3.5-5.0 5382793637) CL (test code = 103 mmol/L 98-108 1088342380) CO2 TOTAL (test code = 34 mmol/L 23-31 H 5280932935) AGAP (test code = 2-16 7709473353) BUN (test code = 19 mg/dL 7-23 5713176250) GLUCOSE (test code = 295 mg/dL 70-110 H 1648370546) CREATININE (test code = 0.80 mg/dL 0.50-1.04 1239093056) CALCIUM (test code = 7.9 mg/dL 8.6-10.6 L 2123877454) eGFR (test code = mL/min/1.73m2 7585509895) JENNIFFER (test code = JENNIFFER) Association of [...] tests). Lab Interpretation Abnormal (test code = 06168-1) [facility] 09:15:12 Test Item Value Reference Range Interpretation Comments MAGNESIUM (test code = 6189084523) 2.3 mg/dL 1.7-2.4 Lab Interpretation (test code = Normal 65382-8) [facility] WITH [id number] 09:02:53 Test Item Value Reference Range Interpretation [...] RDW-SD (test code = 46.8 fL 39.0-49.9 63399-7) RDW-CV (test code = 14.3 % 12.0-15.5 788-0) PLT (test code = See_Comment [Automated 777-3) message] The sy stem which generated this result transmitted reference range : 166 - 358 10*3/ ?L. The reference r josselyn was not used to interpret this result as normal/abnormal . MPV (test code = 9.1 fL 9.5-12.9 L 81671-1) NRBC/100 WBC (test See_Comment [Automat ed code = 4081741153) message] The system which generated this result transmitted reference range : 0.0 - 10.0 /100 WBCs. The refer ence range was not u sed to interpret th is result as normal/abnormal . NRBC x10^3 (test code <0.01 See_Comment [Auto mated = 2646282451) message] The s ystem which generated this result transmitted reference range : 10*3/?L. The reference range was not used to interpret this result as normal/abnormal . GRAN MAT (NEUT) % 86.9 % (test code = 770-8) IMM GRAN % (test code 0.50 % = 8389259515) LYMPH % (test code = 6.5 % 736-9) MONO % (test code = 5.2 % 5905-5) EOS % (test code = 0.6 % 713-8) BASO % (test code = 0.3 % 706-2) GRAN MAT x10^3(ANC) 8.30 10*3/uL 1.88-7.09 H (test code = 9097203757) IMM GRAN x10^3 (test 0.05 10*3/uL 0.00-0.06 code = 0848951570) LYMPH x10^3 (test code 0.62 10*3/uL 1.32-3.29 L = 731-0) MONO x10^3 (test code 0.50 10*3/uL 0.33-0.92 = 742-7) EOS x10^3 (test code = 0.06 10*3/uL 0.03-0.39 711-2) BASO x10^3 (test code 0.03 10*3/uL 0.01-0.07 = 704-7) Lab Interpretation Abnormal (test code = 27914-0) [facility] GLUCOSE (AUTOMATED)2022-01-03 04:48:55 Test Item Value Reference Range Interpretation Comments POCT GLU (test code = 3692654431) 258 mg/dL 70-110 H Lab Interpretation (test code = Abnormal 23130-5) [facility] GLUCOSE (AUTOMATED)2022-01-02 22:17:43 Test Item Value Reference Range Interpretation Comments POCT GLU (test code = 274 mg/dL 70-110 H Notifi ed Provider 8236619352) Lab Interpretation (test Abnormal code = 28089-1) [facility] GLUCOSE (AUTOMATED)2022-01-02 16:29:06 Test Item Value Reference Range Interpretation Comments POCT GLU (test code = 321 mg/dL 70-110 H Notifi ed Provider 1229973797) Lab Interpretation (test Abnormal code = 73249-7) [facility]udaGlycosylated Hemoglobin (A1C)2022-01-02 15:12:15 Test Item Value Reference Range Interpretation Comments HGB A1C (test code = 10.4 % 4.0-5.7 H 4548-4) JENNIFFER (test code = JENNIFFER) Reference RangesNormal: <5.7%Prediabetes: 5.7 - 6.4%Diabetes: > 6.5% Lab Interpretation (test Abnormal code = 40448-3) [facility] + Lactic [id number] 12:41:39 Test Item Value Reference Range Interpretation Comments PH (test code = 2) 7.35-7.45 L PCO2 (test code = See_Comment H [Automate d 9568008113) message] The sy stem which generated this result transmitted reference range : 35 - 45 mmHg. The reference range was not used to interpret this result as normal/abnormal . PO2 (test code = See_Comment H [Automated 0798382811) message] The sy stem which generated this result transmitted reference range : 80 - 100 mmHg. The reference range was not used to interpret this result as normal/abnormal . HCO3 (test code = See_Comment [Automate d 2335989094) message] The sy stem which generated this result transmitted reference range : 22 - 26 mEq/L. The reference range was not used to interpret this result as normal/abnormal . BE (test code = See_Comment [Automated 5788732578) message] The sy stem which generated this result transmitted reference range : -3.0 - 3.0 mEq/ L. The reference r josselyn was not used to interpret this result as normal/abnormal . THB (test code = 10.0 g/dL 12.0-16.0 L 3726520480) %O2HB (test code = 97.7 % 94.0-99.0 6916356864) %COHB ART (test code = 0.3 % 0.0-1.5 5457285665) %METHB ART (test code = 0.2 % 0.4-1.5 L 1541496710) VOL%O2 ART (test code = 14.0 % 15.0-23.0 L 9775513211) NA (test code = 137 mmol/L 135-145 0989673471) K+ (test code = 5.2 mmol/L 3.5-5.0 H 6554057701) AC CA IONZ (test code = 4.60 mg/dL 4.50-5.30 5624946397) GLUCOSE (test code = 306 mg/dL 70-110 H 2548403586) LACTIC ACID (test code 0.77 mmol/L 0.50-2.20 = 9533384904) Lab Interpretation Abnormal (test code = 62514-4) [facility]-01-02 12:28:29 Test Item Value Reference Range Interpretation Comments POCT GLU (test code = 362 mg/dL 70-110 H Notifi ed Provider 9074514542) Lab Interpretation (test Abnormal code = 12914-8) [facility] Metabolic Panel (NA, K, CL, CO2, Glucose, BUN, Creatinine, CA)2022-01-02 11:02:42 Test Item Value Reference Range Interpretation Comments NA (test code = 138 mmol/L 135-145 3204233202) K (test code = 5.3 mmol/L 3.5-5.0 H 1391156965) CL (test code = 102 mmol/L 98-108 7460754620) CO2 TOTAL (test code = 29 mmol/L 23-31 2905590260) AGAP (test code = 2-16 8285208569) BUN (test code = 17 mg/dL 7-23 2968903762) GLUCOSE (test code = 343 mg/dL 70-110 H 2938957521) CREATININE (test code = 0.81 mg/dL 0.50-1.04 9130263438) CALCIUM (test code = 8.1 mg/dL 8.6-10.6 L 5024796657) eGFR (test code = mL/min/1.73m2 7059909267) JENNIFFER (test code = JENNIFFER) Association of [...] tests). Lab Interpretation Abnormal (test code = 24863-1) [facility] with Ctxmsbrvqtrk4086-48-53 10:52:23 Test Item Value Reference Range Interpretation Comments WBC (test code = See_Comment H [Automated 8190-2) message] The system which generated this result transmit alden reference range : 4.30 - 11.10 10*3/?L. The reference range was not used to interpret this result as normal/abnormal . RBC (test code = See_Comment L [Automated 529-8) message] The system which generated this result [...] RDW-SD (test code = 49.3 fL 39.0-49.9 13150-2) RDW-CV (test code = 14.7 % 12.0-15.5 788-0) PLT (test code = See_Comment [Automated 777-3) message] The system which generated this result transmit alden reference range : 166 - 358 10*3/ ?L. The reference range was not u sed to interpret th is result as normal/abnormal . MPV (test code = 9.8 fL 9.5-12.9 19735-0) NRBC/100 WBC (test See_Comment [Automat ed code = 0271935540) message] The system which generated this result transmit alden reference range : 0.0 - 10.0 /100 WBCs. The reference range was not used to interpret this result as normal/abnormal . NRBC x10^3 (test code <0.01 See_Comment [Auto mated = 0990441636) message] The system which generated this result transmit alden reference range : 10*3/?L. The reference range was not used to interpret this result as normal/abnormal . GRAN MAT (NEUT) % 90.3 % (test code = 770-8) IMM GRAN % (test code 1.00 % = 2246334636) LYMPH % (test code = 4.0 % 736-9) MONO % (test code = 4.0 % 5905-5) EOS % (test code = 0.3 % 713-8) BASO % (test code = 0.4 % 706-2) GRAN MAT x10^3(ANC) 13.28 10*3/uL 1.88-7.09 H (test code = 6038305199) IMM GRAN x10^3 (test 0.15 10*3/uL 0.00-0.06 H code = 6001370503) LYMPH x10^3 (test code 0.59 10*3/uL 1.32-3.29 L = 731-0) MONO x10^3 (test code 0.59 10*3/uL 0.33-0.92 = 742-7) EOS x10^3 (test code = 0.04 10*3/uL 0.03-0.39 711-2) BASO x10^3 (test code 0.06 10*3/uL 0.01-0.07 = 704-7) Lab Interpretation Abnormal (test code = 52298-0) [facility]udaABG[facility]COOX+NA+K+GLU+CA2+2022-01-02 10:20:11 Test Item Value Reference Range Interpretation Comments PH (test code = 2) 7.35-7.45 LL PCO2 (test code = See_Comment H [Automate d message] 8750554201) The system [employer] generated this result transmit alden reference range : 35 - 45 mmHg. The reference range was not used to interpret this result as normal/abnormal . PO2 (test code = See_Comment H [Automated message] 6446716097) The system [employer] generated this result transmit alden reference range : 80 - 100 mmHg. The reference range was not used to interpret this result as normal/abnormal . HCO3 (test code = See_Comment [Automate d message] 9083621545) The system [employer] generated this result transmit alden reference range : 22 - 26 mEq/L. The reference range was not used to interpret this result as normal/abnormal . BE (test code = See_Comment L [Automated message] 6988131997) The system [employer] generated this result transmit alden reference range : -3.0 - 3.0 mEq/ L. The reference r josselyn was not used to interpret this result as normal/abnormal . THB (test code = 10.9 g/dL 12.0-16.0 L 6578610268) %O2HB (test code = 97.4 % 94.0-99.0 1816314825) %COHB ART (test code = 0.3 % 0.0-1.5 3630124245) %METHB ART (test code = 0.1 % 0.4-1.5 L 5336475273) VOL%O2 ART (test code = 15.1 % 15.0-23.0 8466891056) NA (test code = 136 mmol/L 135-145 3960518159) K+ (test code = 5.5 mmol/L 3.5-5.0 H 8824364667) AC CA IONZ (test code = 4.70 mg/dL 4.50-5.30 7822942263) GLUCOSE (test code = 348 mg/dL 70-110 H 9743346066) Lab Interpretation Abnormal (test code = 22653-3) [facility]udaTROPON[facility] [id number] 03:01:55 Test Item Value Reference Interpretation Comments Range TROPONIN I (test 0.001 ng/mL See_Comment [Automated code = 7362208423) message] The system which generated this result [...] biotin. Lab Interpretation Normal (test code = 06949-7) [facility]uda[facility] QIP-EQR8131-66-10 02:58:58 Test Item Value Reference Range Interpretation Comments NT-proBNP (test code 183 pg/mL See_Comment H [Autom ated = 9868372112) message] The system which generated this result transmitted reference range : <=125. The reference range was not used to interpret this result as normal/abnormal . JENNIFFER (test code = JENNIFFER) Biotin has been reported to cause a negative bias, interpret results relative to patient's use of biotin. Lab Interpretation Abnormal (test code = 79533-0) [facility]. METABOLIC PANEL (88793)2022-01-02 02:50:56 Test Item Value Reference Range Interpretation Comments NA (test code = 137 mmol/L 135-145 2372367585) K (test code = 4.6 mmol/L 3.5-5.0 4295815429) CL (test code = 103 mmol/L 98-108 4519899242) CO2 TOTAL (test code = 26 mmol/L 23-31 1163730602) AGAP (test code = 2-16 5962654893) BUN (test code = 20 mg/dL 7-23 0992338113) GLUCOSE (test code = 310 mg/dL 70-110 H 8256437685) CREATININE (test code = 1.14 mg/dL 0.50-1.04 H 6157951458) TOTAL BILI (test code = 0.3 mg/dL 0.1-1.2 3522517310) CALCIUM (test code = 8.1 mg/dL 8.6-10.6 L 5329003628) T PROTEIN (test code = 6.6 g/dL 6.3-8.2 6501832127) ALBUMIN (test code = 3.8 g/dL 3.5-5.0 8969138889) ALK PHOS (test code = 143 U/L 34-122 H 1684277186) ALTv (test code = 46 U/L 5-35 H 1742-6) AST(SGOT) (test code = 81 U/L 13-40 H 6527704372) eGFR (test code = mL/min/1.73m2 6379883929) JENNIFFER (test code = JENNIFFER) Association of [...] tests). Lab Interpretation Abnormal (test code = 05015-2) General acute hospital WITH [id number] 02:39:55 Test Item Value Reference Range Interpretation Comments WBC (test code = See_Comment H [Automated 90-2) message] The system which generated this result [...] RDW-SD (test code = 49.2 fL 39.0-49.9 85612-4) RDW-CV (test code = 14.8 % 12.0-15.5 788-0) PLT (test code = See_Comment [Automated 777-3) message] The system which generated this result transmit alden reference range : 166 - 358 10*3/ ?L. The reference range was not u sed to interpret th is result as normal/abnormal . MPV (test code = 10.0 fL 9.5-12.9 58029-6) NRBC/100 WBC (test See_Comment [Automat ed code = 7117584687) message] The system which generated this result transmit alden reference range : 0.0 - 10.0 /100 WBCs. The reference range was not used to interpret this result as normal/abnormal . NRBC x10^3 (test code <0.01 See_Comment [Auto mated = 3763625960) message] The system which generated this result transmit alden reference range : 10*3/?L. The reference range was not used to interpret this result as normal/abnormal . GRAN MAT (NEUT) % 85.4 % (test code = 770-8) IMM GRAN % (test code 0.60 % = 0354141996) LYMPH % (test code = 6.4 % 736-9) MONO % (test code = 5.5 % 5905-5) EOS % (test code = 1.6 % 713-8) BASO % (test code = 0.5 % 706-2) GRAN MAT x10^3(ANC) 10.20 10*3/uL 1.88-7.09 H (test code = 1398522187) IMM GRAN x10^3 (test 0.07 10*3/uL 0.00-0.06 H code = 8512757198) LYMPH x10^3 (test code 0.76 10*3/uL 1.32-3.29 L = 731-0) MONO x10^3 (test code 0.66 10*3/uL 0.33-0.92 = 742-7) EOS x10^3 (test code = 0.19 10*3/uL 0.03-0.39 711-2) BASO x10^3 (test code 0.06 10*3/uL 0.01-0.07 = 704-7) Lab Interpretation Abnormal (test code = 20804-7) [facility] [id number] 04:57:10 Test Item Value Reference Interpretation Comments Range TROPONIN I (test 0.001 ng/mL See_Comment [Automated code = 0719580153) message] The system which generated this result [...] biotin. Lab Interpretation Normal (test code = 09159-0) [facility] [id number]-FCT4566-71-17 04:53:49 Test Item Value Reference Range Interpretation Comments NT-proBNP (test code 79 pg/mL See_Comment [Autom ated = 8489987150) message] The system which generated this result transmitted reference range : <=125. The reference range was not used to interpret this result as normal/abnormal . JENNIFFER (test code = JENNIFFER) Biotin has been reported to cause a negative bias, interpret results relative to patient's use of biotin. Lab Interpretation Normal (test code = 74062-4) [facility]udaCOMP[facility] METABOLIC PANEL (46930)2021-12-09 04:46:26 Test Item Value Reference Range Interpretation Comments NA (test code = 138 mmol/L 135-145 4956017922) K (test code = 4.4 mmol/L 3.5-5.0 9026391037) CL (test code = 95 mmol/L 98-108 L 0416366579) CO2 TOTAL (test code = 35 mmol/L 23-31 H 5049131610) AGAP (test code = 2-16 4564306071) BUN (test code = 16 mg/dL 7-23 6106780427) GLUCOSE (test code = 276 mg/dL 70-110 H 8176899841) CREATININE (test code = 0.89 mg/dL 0.50-1.04 1838702365) TOTAL BILI (test code = 0.5 mg/dL 0.1-1.2 1235960646) CALCIUM (test code = 9.1 mg/dL 8.6-10.6 8911105523) T PROTEIN (test code = 7.0 g/dL 6.3-8.2 3882522458) ALBUMIN (test code = 4.2 g/dL 3.5-5.0 7742985411) ALK PHOS (test code = 141 U/L 34-122 H 9680874666) ALTv (test code = 65 U/L 5-35 H 1742-6) AST(SGOT) (test code = 81 U/L 13-40 H 1526556450) eGFR (test code = mL/min/1.73m2 1016129133) JENNIFFER (test code = JENNIFFER) Association of [...] tests). Lab Interpretation Abnormal (test code = 86677-7) [facility]uda[facility] 04:46:26 Test Item Value Reference Range Interpretation Comments LIPASE (test code = 0634918077) 82 U/L 0-220 Lab Interpretation (test code = Normal 83558-0) [facility]udaCBC WITH MOGO1201-12-37 04:27:44 Test Item Value Reference Range Interpretation [...] RDW-SD (test code = 46.9 fL 39.0-49.9 22276-0) RDW-CV (test code = 14.2 % 12.0-15.5 788-0) PLT (test code = See_Comment [Automated 777-3) message] The sy stem which generated this result transmitted reference range : 166 - 358 10*3/ ?L. The reference r josselyn was not used to interpret this result as normal/abnormal . MPV (test code = 9.0 fL 9.5-12.9 L 15257-6) NRBC/100 WBC (test See_Comment [Automat ed code = 6315841240) message] The system which generated this result transmitted reference range : 0.0 - 10.0 /100 WBCs. The refer ence range was not u sed to interpret th is result as normal/abnormal . NRBC x10^3 (test code <0.01 See_Comment [Auto mated = 8728735087) message] The s ystem which generated this result transmitted reference range : 10*3/?L. The reference range was not used to interpret this result as normal/abnormal . GRAN MAT (NEUT) % 79.4 % (test code = 770-8) IMM GRAN % (test code 0.60 % = 1817576261) LYMPH % (test code = 10.9 % 736-9) MONO % (test code = 5.7 % 5905-5) EOS % (test code = 2.7 % 713-8) BASO % (test code = 0.7 % 706-2) GRAN MAT x10^3(ANC) 7.19 10*3/uL 1.88-7.09 H (test code = [id number]) IMM GRAN x10^3 (test 0.05 10*3/uL 0.00-0.06 code = [id number]) LYMPH x10^3 (test code 0.99 10*3/uL 1.32-3.29 L = 731-0) MONO x10^3 (test code 0.52 10*3/uL 0.33-0.92 = 742-7) EOS x10^3 (test code = 0.24 10*3/uL 0.03-0.39 711-2) BASO x10^3 (test code 0.06 10*3/uL 0.01-0.07 = 704-7) Lab Interpretation Abnormal (test code = 44608-3) [facility] GLUCOSE (AUTOMATED)2021-09-23 17:25:54 Test Item Value Reference Range Interpretation Comments POCT GLU (test code = [id number]) 234 mg/dL 70-110 H Lab Interpretation (test code = Abnormal 15598-6) [facility] GLUCOSE (AUTOMATED)2021-09-23 13:58:43 Test Item Value Reference Range Interpretation Comments POCT GLU (test code = 8699665186) 202 mg/dL 70-110 H Lab Interpretation (test code = Abnormal 89766-9) [facility] METABOLIC PANEL (NA, K, CL, CO2, GLUCOSE, BUN, CREATININE, CA)2021-09-23 11:51:27 Test Item Value Reference Range Interpretation Comments NA (test code = 139 mmol/L 135-145 3438237547) K (test code = 3.9 mmol/L 3.5-5.0 5623364361) CL (test code = 93 mmol/L 98-108 L 4911532435) CO2 TOTAL (test code = 40 mmol/L 23-31 H 8536847433) AGAP (test code = 2-16 4531724262) BUN (test code = 26 mg/dL 7-23 H 6402392679) GLUCOSE (test code = 223 mg/dL 70-110 H 9869546436) CREATININE (test code = 0.96 mg/dL 0.50-1.04 0605559725) CALCIUM (test code = 9.2 mg/dL 8.6-10.6 1835236978) eGFR (test code = mL/min/1.73m2 7638283997) JENNIFFER (test code = JENNIFFER) Association of [...] tests). Lab Interpretation Abnormal (test code = 24577-8) General acute hospital WITHOUT [id number] 10:53:54 Test Item Value Reference Range Interpretation Comments WBC (test code = 6690-2) See_Comment H [A utomated message] The system [employer] generated this result transmit alden reference range : 4.30 - 11.10 10*3/?L. The reference range was not used to interpret this result as normal/abnormal . RBC (test code = 789-8) See_Comment L [Au tomated message] The system [employer] generated this result transmit alden reference range [...] 777-3) See_Comment [Au tomated message] The system [facility] generated this result transmit alden reference range : 166 - 358 10*3/?L. The reference range was not used to interpret this result as normal/abnormal . MPV (test code = 9.2 fL 9.5-12.9 L 61831-0) RDW-CV (test code = 13.5 % 12.0-15.5 788-0) RDW-SD (test code = 44.3 fL 39.0-49.9 27869-2) NRBC x10^3 (test code = <0.01 See_Comment [Au tomated message] 8271422604) The system [employer] generated this result transmit alden reference range : 10*3/?L. The reference range was not used to interpret this result as normal/abnormal . NRBC/100 WBC (test code See_Comment [Au tomated message] = 8579242176) The system [facility] generated this result transmit alden reference range : 0.0 - 10.0 /100 WBC s. The reference r josselyn was not used to interpret this result as normal/abnormal . IPF % (test code = 8197609895) Lab Interpretation (test Abnormal code = 78095-8) [facility] GLUCOSE (AUTOMATED)2021-09-23 10:17:17 Test Item Value Reference Range Interpretation Comments POCT GLU (test code = 8874146611) 217 mg/dL 70-110 H Lab Interpretation (test code = Abnormal 54474-6) [facility] GLUCOSE (AUTOMATED)2021-09-23 05:44:27 Test Item Value Reference Range Interpretation Comments POCT GLU (test code = 7665099518) 338 mg/dL 70-110 H Lab Interpretation (test code = Abnormal 32900-3) [facility] GLUCOSE (AUTOMATED)2021-09-23 02:18:55 Test Item Value Reference Range Interpretation Comments POCT GLU (test code = 7283041697) 365 mg/dL 70-110 H Lab Interpretation (test code = Abnormal 85767-1) [facility]21-[facility]23 00:11:44 Test Item Value Reference Range Interpretation Comments LVOT stroke volume (test 68.50 cm3 code = 6686544666) EF(Teich) (test code = 68.30 % 9920311758) LVIDD (test code = 4.00 cm 4042721009) LVIDS (test code = 2.49 cm 7823457784) IVS (test code = 1.07 cm 7598164498) LVPWD (test code = 1.08 cm 3230886753) LVOT diameter (test code 1.92 cm = 7858243095) FS (test code = 38 % 3499700433) MV Peak E Marva (test code 83.4 cm/s = 2057153329) MV Peak A Marva (test code 136.1 cm/s = 2590138310) E/A ratio (test code = ratio 7760324993) E wave decelartion time 0.16 s (test code = 0041573064) MV E/e' septal (test 7.1 cm/s code = 5669696953) LA Volume Index (BP) 21.8 mL/m2 (test code = 4374649311) LA volume (BP) (test 43.7 mL code = 0184233050) LVOT peak marva (test code 137.5 cm/s = 0317929959) LVOT mn grad (test code mmHg = 7973769576) LA size (test code = 3.9 cm 1013755660) LAV(MOD-sp2) (test code 43.50 mL = 6902135220) LAV(MOD-sp4) (test code 42.50 mL = 8569448336) Tapse (test code = 1.88 cm 2040265559) AV LVOT peak gradient mmHg (test code = 9304922306) LVOT peak VTI (test code 23.5 cm = 0407544368) LV V1 mean (test code = 92.90 cm/s 2791297694) MV Prop V (test code = 46.60 cm/s 3660458179) Ao root annulus (test 3.1 cm code = 0186746386) Ao root diam (test code 3.10 cm = 3189779448) Aortic root (test code = 3.1 cm 6541209379) PW (test code = 1.08 cm 0.6-1.5 0389180336) EF - 2D (test code = 68.30 % 96527502) Interventricular Septum 1.07 cm Diastolic Thickness by 2D (test code = 8640827) Radiology Study observation (narrative) (test code = 08853-9) JENNIFFER (test code = JENNIFFER) ?Left?Ventricle: Normal [...] (104.3 kg) 2.12 sq meters 118/66 96 [facility] GLUCOSE (AUTOMATED)2021-09-22 22:23:31 Test Item Value Reference Range Interpretation Comments POCT GLU (test code = 4976935241) 389 mg/dL 70-110 H Lab Interpretation (test code = Abnormal 34165-8) [id number] Test Item Value Reference Range Interpretation Comments SPUTUM CULTURE (test Specimen cellular code = 622-1) elements do not represent lower respiratory tract. Specimen rejected for routine bacterial culture. Suggest reorder and recollection. [facility] GLUCOSE (AUTOMATED)2021-09-22 20:03:02 Test Item Value Reference Range Interpretation Comments POCT GLU (test code = 8831269339) 365 mg/dL 70-110 H Lab Interpretation (test code = Abnormal 74310-6) [facility] GLUCOSE (AUTOMATED)2021-09-22 18:09:08 Test Item Value Reference Range Interpretation Comments POCT GLU (test code = 0131631915) 361 mg/dL 70-110 H Lab Interpretation (test code = Abnormal 27547-3) [facility] GLUCOSE (AUTOMATED)2021-09-22 13:24:25 Test Item Value Reference Range Interpretation Comments POCT GLU (test code = 9979333646) 394 mg/dL 70-110 H Lab Interpretation (test code = Abnormal 99090-5) [facility] + LACTIC [id number] 13:21:48 Test Item Value Reference Range Interpretation Comments PH (test code = 2) 7.35-7.45 PCO2 (test code = See_Comment H [Automate d 1156820171) message] The sy stem which generated this result transmitted reference range : 35 - 45 mmHg. The reference range was not used to interpret this result as normal/abnormal . PO2 (test code = See_Comment L [Automated 9284399534) message] The sy stem which generated this result transmitted reference range : 80 - 100 mmHg. The reference range was not used to interpret this result as normal/abnormal . HCO3 (test code = See_Comment H [Automate d 3780272671) message] The sy stem which generated this result transmitted reference range : 22 - 26 mEq/L. The reference range was not used to interpret this result as normal/abnormal . BE (test code = See_Comment H [Automated 8851762380) message] The sy stem which generated this result transmitted reference range : -3.0 - 3.0 mEq/ L. The reference r josselyn was not used to interpret this result as normal/abnormal . THB (test code = 11.0 g/dL 12.0-16.0 L 4441533470) %O2HB (test code = 92.4 % 94.0-99.0 L 0201094980) %COHB ART (test code = 0.3 % 0.0-1.5 6686931423) %METHB ART (test code = 0.3 % 0.4-1.5 L 2458713527) VOL%O2 ART (test code = 14.3 % 15.0-23.0 L 3720018218) NA (test code = 138 mmol/L 135-145 9814834007) K+ (test code = 4.7 mmol/L 3.5-5.0 4060775224) AC CA IONZ (test code = 4.70 mg/dL 4.50-5.30 2119337759) GLUCOSE (test code = 401 mg/dL 70-110 H 9189618119) LACTIC ACID (test code 1.76 mmol/L 0.50-2.20 = 0807465778) Lab Interpretation Abnormal (test code = 73130-4) [facility] Metabolic Panel (NA, K, CL, CO2, Glucose, BUN, Creatinine, CA)2021-09-22 13:08:40 Test Item Value Reference Range Interpretation Comments NA (test code = 139 mmol/L 135-145 8271300923) K (test code = 4.9 mmol/L 3.5-5.0 8354612735) CL (test code = 93 mmol/L 98-108 L 4106934059) CO2 TOTAL (test code = 38 mmol/L 23-31 H 1906998120) AGAP (test code = 2-16 6597777141) BUN (test code = 19 mg/dL 7-23 5383298861) GLUCOSE (test code = 393 mg/dL 70-110 H 7169729156) CREATININE (test code = 0.89 mg/dL 0.50-1.04 4624705555) CALCIUM (test code = 8.9 mg/dL 8.6-10.6 5571780648) eGFR (test code = mL/min/1.73m2 4829477204) JENNIFFER (test code = JENNIFFER) Association of [...] tests). Lab Interpretation Abnormal (test code = 26144-9) [facility]uda[facility] [id number] 13:00:02 Test Item Value Reference Range Interpretation Comments MAGNESIUM (test code = 9104245148) 2.1 mg/dL 1.7-2.4 Lab Interpretation (test code = Normal 59650-3) [facility] BudaPhosphorus [id number] 13:00:02 Test Item Value Reference Range Interpretation Comments PHOSPHORUS (test code = 6707808403) 3.3 mg/dL 2.5-5.0 Lab Interpretation (test code = Normal 04555-6) [facility] BudaHepatic Function Panel (ALB, T.PRO, BILI T, BU/BC, ALT, AST, ALK, PHOS)2021-09-22 13:00:02 Test Item Value Reference Range Interpretation Comments TOTAL BILI (test code = 0590778259) 0.7 mg/dL 0.1-1.1 BILI UNCON (test code = 8958462013) 0.1 mg/dL 0.1-1.1 BILI CONJ (test code = 4306786935) 0.0 mg/dL 0.0-0.3 T PROTEIN (test code = 8266478944) 8.1 g/dL 6.3-8.2 ALBUMIN (test code = 8168371906) 4.2 g/dL 3.5-5.0 ALK PHOS (test code = 9237083238) 145 U/L 34-122 H ALTv (test code = 1742-6) 34 U/L 5-35 AST(SGOT) (test code = 3688920205) 46 U/L 13-40 H Lab Interpretation (test code = Abnormal 42304-3) [facility] BudaProthrombin Time / [id number] 12:42:02 Test Item Value Reference Range Interpretation Comments PROTIME PATIENT (test See_Comment [Auto mated message] code = 5964-2) The system [employer] ich generated this result transmitted ref erence range: 10.1 - 1 2.6 Seconds. The re ference range was not u sed to interpret this result as normal/abnor mal. INR (test code = 6301-6) Nor mal INR <1.1; Warfarin Therap eutic range 2.0 to 3. 0 or 2.5 to 3.5, dep ending upon the indica tions. Lab Interpretation (test Normal code = 46844-6) [facility] BudaCB with [id number] 12:35:41 Test Item Value Reference Range Interpretation [...] RDW-SD (test code = 45.0 fL 39.0-49.9 78538-6) RDW-CV (test code = 13.7 % 12.0-15.5 788-0) PLT (test code = See_Comment [Automated 777-3) message] The sy stem which generated this result transmitted reference range : 166 - 358 10*3/ ?L. The reference r josselyn was not used to interpret this result as normal/abnormal . MPV (test code = 9.0 fL 9.5-12.9 L 59658-2) NRBC/100 WBC (test See_Comment [Automat ed code = 6938150522) message] The system which generated this result transmitted reference range : 0.0 - 10.0 /100 WBCs. The refer ence range was not u sed to interpret th is result as normal/abnormal . NRBC x10^3 (test code <0.01 See_Comment [Auto mated = 1367907902) message] The s ystem which generated this result transmitted reference range : 10*3/?L. The reference range was not used to interpret this result as normal/abnormal . GRAN MAT (NEUT) % 93.7 % (test code = 770-8) IMM GRAN % (test code 0.90 % = 8125594886) LYMPH % (test code = 3.2 % 736-9) MONO % (test code = 1.1 % 5905-5) EOS % (test code = 0.5 % 713-8) BASO % (test code = 0.6 % 706-2) GRAN MAT x10^3(ANC) 9.27 10*3/uL 1.88-7.09 H (test code = 0712372941) IMM GRAN x10^3 (test 0.09 10*3/uL 0.00-0.06 H code = 3341837537) LYMPH x10^3 (test code 0.32 10*3/uL 1.32-3.29 L = 731-0) MONO x10^3 (test code 0.11 10*3/uL 0.33-0.92 L = 742-7) EOS x10^3 (test code = 0.05 10*3/uL 0.03-0.39 711-2) BASO x10^3 (test code 0.06 10*3/uL 0.01-0.07 = 704-7) Lab Interpretation Abnormal (test code = 36464-7) [facility] BudaGLYCOSYLATED HEMOGLOBIN (A1C)2021-09-22 12:16:03 Test Item Value Reference Range Interpretation Comments HGB A1C (test code = 6.4 % 4.0-5.7 H 4548-4) JENNIFFER (test code = JENNIFFER) Reference RangesNormal: <5.7%Prediabetes: 5.7 - 6.4%Diabetes: > 6.5% Lab Interpretation (test Abnormal code = 06707-2) [facility] BudaTROPONIN [id number] 07:25:36 Test Item Value Reference Interpretation Comments Range TROPONIN I (test <0.012 See_Comment [Automated code = 8923749105) message] The system which generated this result [...] biotin. Lab Interpretation Normal (test code = 98885-7) [facility] BudaN-TERMINAL [id number] 07:21:56 Test Item Value Reference Range Interpretation Comments NT-proBNP (test code 127 pg/mL See_Comment H [Autom ated = 5125708274) message] The system which generated this result transmitted reference range : <=125. The reference range was not used to interpret this result as normal/abnormal . JENNIFFER (test code = JENNIFFER) Biotin has been reported to cause a negative bias, interpret results relative to patient's use of biotin. Lab Interpretation Abnormal (test code = 05855-3) [facility]udaCOMP. METABOLIC PANEL (05145)2021-09-22 07:01:13 Test Item Value Reference Range Interpretation Comments NA (test code = 137 mmol/L 135-145 8912124053) K (test code = 4.9 mmol/L 3.5-5.0 2572005402) CL (test code = 96 mmol/L 98-108 L 8831725925) CO2 TOTAL (test code = 36 mmol/L 23-31 H 7879927545) AGAP (test code = 2-16 5536232222) BUN (test code = 18 mg/dL 7-23 8846895144) GLUCOSE (test code = 298 mg/dL 70-110 H 7175669808) CREATININE (test code = 0.73 mg/dL 0.50-1.04 9943472716) TOTAL BILI (test code = 0.6 mg/dL 0.1-1.6 4924668247) CALCIUM (test code = 8.5 mg/dL 8.6-10.6 L 5901490924) T PROTEIN (test code = 7.1 g/dL 6.3-8.2 6774620177) ALBUMIN (test code = 4.0 g/dL 3.5-5.0 9971767447) ALK PHOS (test code = 132 U/L 34-122 H 0901268294) ALTv (test code = 31 U/L 5-35 1742-6) AST(SGOT) (test code = 51 U/L 13-40 H 7488615607) eGFR (test code = mL/min/1.73m2 4420961881) JENNIFFER (test code = JENNIFFER) Association of [...] tests). Lab Interpretation Abnormal (test code = 99929-8) [facility] BudaACTIVATED PARTIAL THRMPLAS [id number] 06:54:12 Test Item Value Reference Range Interpretation Comments APTT Patient (test See_Comment [Automat ed code = 3173-2) message] The system which generated this result transmitted reference range : 23 - 38 Seconds . The reference range was not used to interpr et this result as normal/abnormal . JENNIFFER (test code = JENNIFFER) The [facility] patient population mean normal value for aPTT is 30 seconds. Lab Interpretation Normal (test code = 81456-5) [facility] BudaPROTHROMBIN TIME / [id number] 06:52:12 Test Item Value Reference Range Interpretation [...] tions. Lab Interpretation (test Normal code = 56302-9) [facility]udaCB WITH [id number] 06:44:31 Test Item Value Reference Range Interpretation [...] RDW-SD (test code = 47.3 fL 39.0-49.9 75042-1) RDW-CV (test code = 13.8 % 12.0-15.5 788-0) PLT (test code = See_Comment [Automated 777-3) message] The sy stem which generated this result transmitted reference range : 166 - 358 10*3/ ?L. The reference r josselyn was not used to interpret this result as normal/abnormal . MPV (test code = 8.8 fL 9.5-12.9 L 30307-6) NRBC/100 WBC (test See_Comment [Automat ed code = 2937493468) message] The system which generated this result transmitted reference range : 0.0 - 10.0 /100 WBCs. The refer ence range was not u sed to interpret th is result as normal/abnormal . NRBC x10^3 (test code <0.01 See_Comment [Auto mated = 2586816141) message] The s ystem which generated this result transmitted reference range : 10*3/?L. The reference range was not used to interpret this result as normal/abnormal . GRAN MAT (NEUT) % 82.4 % (test code = 770-8) IMM GRAN % (test code 0.80 % = 4991228308) LYMPH % (test code = 8.0 % 736-9) MONO % (test code = 5.1 % 5905-5) EOS % (test code = 2.9 % 713-8) BASO % (test code = 0.8 % 706-2) GRAN MAT x10^3(ANC) 6.26 10*3/uL 1.88-7.09 (test code = 8215498478) IMM GRAN x10^3 (test 0.06 10*3/uL 0.00-0.06 code = 0633566995) LYMPH x10^3 (test code 0.61 10*3/uL 1.32-3.29 L = 731-0) MONO x10^3 (test code 0.39 10*3/uL 0.33-0.92 = 742-7) EOS x10^3 (test code = 0.22 10*3/uL 0.03-0.39 711-2) BASO x10^3 (test code 0.06 10*3/uL 0.01-0.07 = 704-7) Lab Interpretation Abnormal (test code = 92190-7) [facility]
--- NOTE | 2022-11-26 18:18 | EDPHYS ---
Physician Documentation [facility] Name: Janie Erickson Age: 62 yrs Sex: Female : 1960 Arrival Date: 11/26/2022 Time: 17:20 Bed 6 Private MD: ED Physician Milton Claros HPI: 11/26 18:13 This 62 yrs old Female presents to ER via Wheelchair with complaints of loren Breathing Difficulty, Nausea. 18:13 The patient has shortness of breath with light activity. Onset: The symptoms/episode loren began/occurred 2 day(s) ago. Duration: The symptoms are continuous, and are steadily getting worse. The patient's shortness of breath has no apparent modifying factors. Associated signs and symptoms: The patient has no apparent associated signs or symptoms. Severity of symptoms: At their worst the symptoms were moderate in the emergency department the symptoms are unchanged. The patient has experienced similar episodes in the past, multiple times. Historical: - Allergies: 17:27 codeine sulfate; aa5 17:27 Robaxin; aa5 17:27 Sulfa (Sulfonamide Antibiotics); aa5 17:27 Ultram; aa5 - PMHx: 17:27 Chronic obstructive lung disease; Congestive heart failure; diabetes mellitus; aa5 - PSHx: 17:27 trach; aa5 - Immunization history:: Adult Immunizations unknown. - Social history:: Smoking status: Patient/guardian denies using tobacco. ROS: 18:15 Constitutional: Negative for fever, chills, and weight loss, Eyes: Negative for injury, loren pain, redness, and discharge, ENT: Negative for injury, pain, and discharge, Neck: Negative for injury, pain, and swelling, Cardiovascular: Negative for chest pain, palpitations, and edema, Abdomen/GI: Negative for abdominal pain, nausea, vomiting, diarrhea, and constipation, Back: Negative for injury and pain, : Negative for injury, bleeding, discharge, and swelling, MS/Extremity: Negative for injury and deformity, Skin: Negative for injury, rash, and discoloration, Neuro: Negative for headache, weakness, numbness, tingling, and seizure, Psych: Negative for depression, anxiety, suicide ideation, homicidal ideation, and hallucinations, Allergy/Immunology: Negative for hives, rash, and allergies, Endocrine: Negative for neck swelling, polydipsia, polyuria, polyphagia, and marked weight changes. 18:15 Respiratory: Positive for cough, dyspnea on exertion, shortness of breath, wheezing, expiratory. Exam: 18:15 Constitutional: This is a well developed, well nourished patient who is awake, alert, loren and in no acute distress. Head/Face: Normocephalic, atraumatic. Eyes: Pupils equal round and reactive to light, extra-ocular motions intact. Lids and lashes normal. Conjunctiva and sclera are non-icteric and not injected. Cornea within normal limits. Periorbital areas with no swelling, redness, or edema. ENT: Nares patent. No nasal discharge, no septal abnormalities noted. Tympanic membranes are normal and external auditory canals are clear. Oropharynx with no redness, swelling, or masses, exudates, or evidence of obstruction, uvula midline. Mucous membranes moist. Neck: Trachea midline, no thyromegaly or masses palpated, and no cervical lymphadenopathy. Supple, full range of motion without nuchal rigidity, or vertebral point tenderness. No Meningismus. Chest/axilla: Normal chest wall appearance and motion. Nontender with no deformity. No lesions are appreciated. Cardiovascular: Regular rate and rhythm with a normal S1 and S2. No gallops, murmurs, or rubs. Normal PMI, no JVD. No pulse deficits. Respiratory: Lungs have equal breath sounds bilaterally, clear to auscultation and percussion. No rales, rhonchi or wheezes noted. No increased work of breathing, no retractions or nasal flaring. Abdomen/GI: Soft, non-tender, with normal bowel sounds. No distension or tympany. No guarding or rebound. No evidence of tenderness throughout. Back: No spinal tenderness. No costovertebral tenderness. Full range of motion. Skin: Warm, dry with normal turgor. Normal color with no rashes, no lesions, and no evidence of cellulitis. MS/ Extremity: Pulses equal, no cyanosis. Neurovascular intact. Full, normal range of motion. Neuro: Awake and alert, GCS 15, oriented to person, place, time, and situation. Cranial nerves II-XII grossly intact. Motor strength 5/5 in all extremities. Sensory grossly intact. Cerebellar exam normal. Normal gait. Psych: Awake, alert, with orientation to person, place and time. Behavior, mood, and affect are within normal limits. 19:50 ECG was reviewed by the Attending Physician. [facility] Vital Signs: 17:27 BP 155 / 77; Pulse 110; Resp 22 S; Temp 98.3(O); Pulse Ox 99% on R/A; aa5 20:17 BP 149 / 75; Pulse 92; Resp 15; Pulse Ox 100% on Trach vent; jb4 21:46 BP 144 / 87; Pulse 99; Resp 17; Pulse Ox 98% on Trach vent, 8LPM; jb4 MDM: 17:54 Patient medically screened. loren 18:19 Differential diagnosis: Anemia asthma, Bronchitis CHF exacerbation, Chronic Obstructive loren Pulmonary Disease pneumonia, pulmonary edema, Pulmonary Embolism reactive airway disease, Sepsis Unstable Angina. Antibiotic administration: Not indicated. Immunization status: Influenza vaccine: within last 5 years. Data reviewed: vital signs, nurses notes, lab test result(s), EKG, radiologic studies, plain films. Consideration of Admission/Observation Patient was admitted/placed on observation. Escalation of care including admission/observation considered. I considered the following discharge prescriptions or medication management in the emergency department Medications were administered in the Emergency Department. See MAR. Test considered but Not performed: MRI: no mri cchest. Historians other than the Patient: Spouse/Significant Other: , informed. Counseling: I had a detailed discussion with the patient and/or guardian regarding: the historical points, exam findings, and any diagnostic results supporting the discharge/admit diagnosis, the presence of at least one elevated blood pressure reading (>120/80) during this emergency department visit, lab results, radiology results, the need for further work-up and treatment in the hospital. 11/26 17:55 Order name: Basic Metabolic Panel; Complete Time: 20:36 [facility] 11/26 17:55 Order name: CBC with Diff; Complete Time: 20:29 [facility] 11/26 17:55 Order name: LFT's; Complete Time: 20:36 [facility] 11/26 17:55 Order name: Magnesium; Complete Time: 20:36 [facility] 11/26 17:55 Order name: NT PRO-BNP; Complete Time: 20:36 [facility] 11/26 17:55 Order name: PT-INR; Complete Time: 20:29 [facility] 11/26 17:55 Order name: Troponin HS; Complete Time: 20:36 [facility] 11/26 17:55 Order name: Lipase; Complete Time: 20:36 [facility] 11/26 17:55 Order name: ABG; Complete Time: 19:00 [facility] 11/26 17:55 Order name: Urinalysis w/ reflexes; Complete Time: 20:08 [facility] 11/26 17:55 Order name: XRAY Chest (1 view); Complete Time: 19:21 [facility] 11/26 17:55 Order name: EKG; Complete Time: 17:56 [facility] 11/26 17:55 Order name: Cardiac monitoring; Complete Time: 20:18 [facility] 11/26 17:55 Order name: EKG - Nurse/Tech; Complete Time: 20:18 [facility] 11/26 17:55 Order name: IV Saline Lock; Complete Time: 20:18 [facility] 11/26 17:55 Order name: Labs collected and sent; Complete Time: 20:18 [facility] 11/26 17:55 Order name: O2 Per Protocol; Complete Time: 19:40 [facility] 11/26 17:55 Order name: O2 Sat Monitoring; Complete Time: 19:40 [facility] EC:50 Rate is 95 beats/min. Rhythm is regular. QRS Milton is Normal. SC interval is normal. QRS loren interval is normal. QT interval is normal. No Q waves. T waves are Normal. No ST changes noted. Clinical impression: NSR w/ Non-specific ST/T Changes and No evidence of ischemia. Interpreted by me. Reviewed by me. Administered Medications: 20:16 Drug: MethylPrednisoLONE IVP 125 mg Route: IVP; Site: left antecubital; jb4 20:16 Drug: Levalbuterol Inhalation 2.5 mg Route: Inhalation; jb4 20:16 Not Given (medication unavailablee): Ipratropium Inhalation Aerosol 0.5 mg Inhalation jb4 once 20:17 Drug: NS 0.9% IV 1000 ml Route: IV; Rate: 75 ml/hr; Site: left antecubital; jb4 Disposition Summary: 11/26/22 18:18 Hospitalization Ordered Hospitalization Status: Inpatient Admission loren Provider: Reina Aponte cha Location: Telemetry/MedSurg (Inpatient) loren Condition: Stable loren Problem: new loren Symptoms: have improved loren Bed/Room Type: Standard loren Room Assignment: loren Diagnosis - Morbid (severe) obesity with alveolar hypoventilation loren - Tracheostomy status loren - Acute and chronic respiratory failure with hypercapnia loren - Tobacco abuse counseling loren - Tobacco use loren Forms: - Medication Reconciliation Form loren - SBAR form loren Signatures: Dispatcher [employer] Milton Mclain MD MD cha Rittger, Kevin, MD MD kdr Calderon, Audri RN RN aa5 Otoniel Quintana RN RN jb4 Shell Cabello, ARNOLD BARRETT sb4
--- NOTE | 2022-11-26 18:18 | ER ---
Nurse's Notes [facility] Name: Janie Erickson Age: 62 yrs Sex: Female : 1960 Arrival Date: 11/26/2022 Time: 17:20 Bed 6 Private MD: Diagnosis: Morbid (severe) obesity with alveolar hypoventilation;Tracheostomy status;Acute and chronic respiratory failure with hypercapnia;Tobacco abuse counseling;Tobacco use Presentation: 11/26 17:27 Chief complaint: Pt's states "she just got released from the hospital about 2 aa5 hours ago and our oxygen concentrator does not go up to 10L of oxygen and I think that is what the problem is". Pt reports she felt ok when she was d/c'd home but later started feeling SOB. Coronavirus screen: shortness of breath. Ebola Screen: Patient denies travel to an Ebola-affected area in the 21 days before illness onset. Initial Sepsis Screen: Does the patient meet any 2 criteria? RR > 20 per min. HR > 90 bpm. Does the patient have a suspected source of infection? No. Patient's initial sepsis screen is negative. Risk Assessment: Do you want to hurt yourself or someone else? Patient reports no desire to harm self or others. Onset of symptoms was November 2022. 17:27 Acuity: PAULINA 3 aa5 17:27 Method Of Arrival: Wheelchair aa5 Triage Assessment: 18:12 General: Appears in no apparent distress. uncomfortable, Behavior is cooperative, ko1 appropriate for age, anxious. Pain: Denies pain. Respiratory: Reports shortness of breath at rest Onset: The symptoms/episode began/occurred gradually, the patient has moderate shortness of breath. Historical: - Allergies: 17:27 codeine sulfate; aa5 17:27 Robaxin; aa5 17:27 Sulfa (Sulfonamide Antibiotics); aa5 17:27 Ultram; aa5 - PMHx: 17:27 Chronic obstructive lung disease; Congestive heart failure; diabetes mellitus; aa5 - PSHx: 17:27 trach; aa5 - Immunization history:: Adult Immunizations unknown. - Social history:: Smoking status: Patient/guardian denies using tobacco. Screenin:15 [facility] ED Fall Risk Assessment (Adult) History of falling in the last 3 months, ko1 including since admission No falls in past 3 months (0 pts) Confusion or Disorientation No (0 pts) Intoxicated or Sedated No (0 pts) Impaired Gait Yes (1 pt) Mobility Assist Device Used Yes (1 pt) Altered Elimination No (0 pt) Score/Fall Risk Level 0 - 2 = Low Risk Oriented to surroundings, Maintained a safe environment, Educated pt \\T\\ family on fall prevention, incl call for assistance when getting out of bed, Assessed \\T\\ reinforced patient's understanding of fall precautions, Provided non-skid footwear, Hourly rounding (assess needs \\T\\ fall precautionary measures) done, Used ambulatory aids as needed (educated on \\T\\ assisted with), Used gait belt as appropriate. Abuse screen: Denies threats or abuse. Denies injuries from another. Nutritional screening: No deficits noted. Tuberculosis screening: No symptoms or risk factors identified. Assessment: 18:15 Neuro: No deficits noted. Cardiovascular:. ko1 20:17 Reassessment: Patient appears in no apparent distress at this time. Patient and/or jb4 family updated on plan of care and expected duration. Pain level reassessed. Patient is alert, oriented x 3, equal unlabored respirations, skin warm/dry/pink. 20:57 Reassessment: Patient appears in no apparent distress at this time. Patient and/or jb4 family updated on plan of care and expected duration. Pain level reassessed. Patient is alert, oriented x 3, equal unlabored respirations, skin warm/dry/pink. Hospitalist at the bedside. Vital Signs: 17:27 BP 155 / 77; Pulse 110; Resp 22 S; Temp 98.3(O); Pulse Ox 99% on R/A; aa5 20:17 BP 149 / 75; Pulse 92; Resp 15; Pulse Ox 100% on Trach vent; jb4 21:46 BP 144 / 87; Pulse 99; Resp 17; Pulse Ox 98% on Trach vent, 8LPM; jb4 ED Course: 17:22 Patient arrived in ED. mr 17:27 Arm band placed on. aa5 17:29 Triage completed. aa5 17:54 Milton Claros MD is Attending Physician. loren 18:15 Patient has correct armband on for positive identification. Bed in low position. Call ko1 light in reach. 18:17 Reina Aponte MD is Hospitalizing Provider. loren 18:46 XRAY Chest (1 view) In Process Unspecified. EDMS 19:40 Urinalysis w/ reflexes Sent. jb4 19:55 Initial lab(s) drawn, by me, sent to lab. Inserted saline lock: 18 gauge in left jb4 antecubital area, using aseptic technique. Blood collected. 20:18 Otoniel Quintana, RN is Primary Nurse. jb4 21:46 No provider procedures requiring assistance completed. IV discontinued, intact, jb4 bleeding controlled, No redness/swelling at site. Pressure dressing applied. Administered Medications: 20:16 Drug: MethylPrednisoLONE IVP 125 mg Route: IVP; Site: left antecubital; jb4 20:16 Drug: Levalbuterol Inhalation 2.5 mg Route: Inhalation; jb4 20:16 Not Given (medication unavailablee): Ipratropium Inhalation Aerosol 0.5 mg Inhalation jb4 once 20:17 Drug: NS 0.9% IV 1000 ml Route: IV; Rate: 75 ml/hr; Site: left antecubital; jb4 Medication: 21:46 VIS not applicable for this client. jb4 Outcome: 18:18 Decision to Hospitalize by Provider. [facility] 21:46 Discharged to home via wheelchair, with family. jb4 21:46 Condition: stable 21:46 Discharge instructions given to patient, family, Instructed on discharge instructions, follow up and referral plans. Demonstrated understanding of instructions, follow-up care. 21:47 Patient left the ED. jb4 Signatures: Dispatcher [employer] EDMS Milton Claros MD MD cha Rivera, Mary mr BhattJinny RN RN aa5 Otoniel Quintana, OLIVE SCHAEFER jb4 Kallie Campbell, OLIVE RN ko1 Corrections: (The following items were deleted from the chart) 17:31 17:27 Initial Sepsis Screen: Does the patient meet any 2 criteria? HR > 90 bpm. Does aa5 the patient have a suspected source of infection? No. Patient's initial sepsis screen is negative. aa5
[2022-11-26 18:20] LABS: Arterial Blood Carboxyhemoglob 1.3 % (0-1.5); Blood Gas Oxyhemoglobin 91.7 % (94-97); Blood O2 Saturation 94.2 % (92-98.5)
--- NOTE | 2022-11-26 19:18 | RAD REPORT ---
EXAM DESCRIPTION: RAD - Chest Single View - 11/26/2022 6:44 pm CLINICAL HISTORY: DYSPNEA Chest pain. COMPARISON: Chest Single View dated 12/08/2021; Chest Single View dated 01/22/2019; Chest Single View dated 03/09/2018; Chest Single View dated 04/20/2017Chest Single View dated 11/23/2022; Chest Single View dated 11/22/2022; Chest Single View dated 11/10/2022; Chest Single View dated 10/21/2022; Chest For Pe Angio dated 11/22/2022 FINDINGS: Portable technique limits examination quality. Mild atelectasis is present in both lung bases, unchanged. No focal infiltrate suspected. The heart i s normal in size. No displaced fractures.Tracheostomy tube. IMPRESSION: No acute intrathoracic process suspected.
[2022-11-26 19:46] LABS: Specific Gravity 1.005 (1.005-1.030); Urine Bilirubin NEGATIVE (Negative); Urine Blood Negative (Negative); Urine Clarity Clear (Clear); Urine Color Colorless (Yellow); Urine Glucose NEGATIVE (Negative); Urine Protein NEGATIVE (Negative); Urine Urobilinogen Normal (Normal); Urine pH 6.5 (5.0-7.0)
[2022-11-26 20:09] LABS: Absolute Lymphocytes (CBC) 1.5 K/uL (0.7-4.9); Hematocrit 40.7 % (36.0-45.0); Lymphocytes % 10.2 % (15.3-44.8); RBC Red Blood Cell Count 4.67 M/uL (3.86-4.86)
[2022-11-26 20:10] LABS: Protime INR 0.91
[2022-11-26 20:31] LABS: Albumin 3.6 g/dL (3.4-5.0); Bilirubin Direct 0.1 mg/dL (0-0.2); Bilirubin Total 0.4 mg/dL (0.2-1.0); Magnesium 2.5 mg/dL (1.6-2.4); Potassium 3.2 mEq/L (3.5-5.1); Protein, Total 7.4 g/dL (6.4-8.2); Troponin High Sensitivity 10.4 pg/mL (<58.9)
--- NOTE | 2022-11-26 21:21 | P.CNS ---
Date of Consult: 11/26/22 Reason for Consult: ED Requesting Hospitalization Requesting Physician: Milton Claros Chief Complaint: Shortness of Breath History of Present Illness: Ms. Erickson is a 62-year-old female with history of permanent trach/home vent secondary to chronic hypercapnic respiratory failure, COPD, chronic diastolic congestive heart failure, and insulin-dependent type 2 diabetes who presented to the emergency department with complaints of shortness of breath. She has had several visits to the ED within the past month. She was hospitalized here 2 days ago and ended up requesting transfer for pulmonology. She was discharged from [facility] this evening and returned to our ED for shortness of breath. She states that the hospital had her on 10L and her home vent only goes up to 8L. We were able to titrate her down to her 8L with satisfactory sats. Chest xray clear. Labs stable. Allergies codeine Allergy (Verified 09/27/22 23:31) Itching methocarbamol [From Robaxin] Allergy (Verified 10/20/22 06:11) Nausea/Vomiting Sulfa (Sulfonamide Antibiotics) Allergy (Verified 09/27/22 23:31) Itching/Hives/Rash tramadol [From Ultram] Adverse Reaction (Verified 09/27/22 23:31) Nausea/Vomiting Home Medications: Cyclobenzaprine [Flexeril*] 10 mg PO TID 05/01/21 Famotidine 40 mg PO DAILY 05/01/21 Furosemide [Lasix*] 40 mg PO DAILY 05/01/21 Hydrocodone Bit/Acetaminophen [Hydrocodon-Acetaminophn 10-325] 1 tab PO Q6H PRN 05/01/21 Ipratropium/Albuterol Sulfate [Iprat-Albut 0.5-3(2.5) mg/3 ml] 3 ml NEB QID 05/01/21 Iron/FA/Vit B-Com W/C [Hemocyte Plus*] 1 tab PO BEDTIME 05/01/21 Levothyroxine [Synthroid*] 0.05 mg PO DAILY 05/01/21 Metformin HCl 500 mg PO BID 05/01/21 PARoxetine HCL [Paroxetine HCl] 40 mg PO DAILY 05/01/21 Pregabalin 300 mg PO BID 05/01/21 Quetiapine [Seroquel*] 50 mg PO BEDTIME 05/01/21 Spironolactone 25 mg PO DAILY 05/01/21 Montelukast Sodium 10 mg PO DAILY 10/20/22 Rosuvastatin [Crestor*] 10 mg PO BEDTIME 10/20/22 Roflumilast [Daliresp*] 500 mcg PO DAILY #30 tab 10/21/22 Insulin Glargine,Hum.rec.anlog [Basaglar Kwikpen U-100] 60 units SQ DAILY 11/23/22 - Past Medical/Surgical History Diabetic: Yes -: COPD -: Chronic diastolic congestive heart failure -: Insulin-dependent diabetes -: Home trach/vent 2/2 chronic hypercapnic respiratory failure -: Hypothyroidism -: Hyperlipidemia -: trach -: -: Hysterectomy -: Left knee surgery Psychosocial/ Personal History: Patient lives at home with family - Family History Father Medical History: Cancer Brother Medical History: Diabetes - Social History Smoking Status: Current every day smoker Alcohol use: No CD- Drugs: Yes Caffeine use: Yes Place of Residence: Home Review of Systems General: Weakness Respiratory: Shortness of Breath Physical Examination General: Alert, In no apparent distress, Obese HEENT: Atraumatic, Normocephalic Neck: Supple Respiratory: Clear to auscultation bilaterally, Normal air movement, Other Cardiovascular: Regular rate/rhythm, Normal S1 S2 Gastrointestinal: Soft and benign, Non-distended Musculoskeletal: No clubbing Integumentary: No rashes, No significant lesion Neurological: Normal speech, Normal affect Laboratory Data (last 24 hrs) 11/26/22 19:55: PT 10.0, INR 0.91 11/26/22 19:55: WBC 14.70 H, Hgb 13.1, Hct 40.7, Plt Count 286 11/26/22 19:55: Sodium 138, Potassium 3.2 L, BUN 27 H, Creatinine 1.08 H, Glucose 141 H, Magnesium 2.5 H, Total Bilirubin 0.4, AST 43 H, ALT 52, Alkaline Phosphatase 114, Lipase 23 - Problems (1) Chronic respiratory failure with hypoxia Current Visit: Yes Status: Chronic (2) CHF (congestive heart failure) Current Visit: Yes Status: Chronic Qualifiers: Heart failure type: diastolic Heart failure chronicity: chronic Qualified Code(s): I50.32 - Chronic diastolic (congestive) heart failure (3) COPD (chronic obstructive pulmonary disease) Current Visit: Yes Status: Chronic Qualifiers: COPD type: unspecified COPD Qualified Code(s): J44.9 - Chronic obstructive pulmonary disease, unspecified (4) Hypertension Current Visit: Yes Status: Chronic Qualifiers: (5) T2DM (type 2 diabetes mellitus) Current Visit: Yes Status: Chronic Qualifiers: 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 Aponte and we agree that Ms. Erickson's condition does not require admission to the hospital. She is able to go home with her home oxygen/trach at 8L and to continue all of her home medications. Her labs and chest xray did not reveal anything that warranted inpatient treatment. She was advised to quit smoking and to follow up with her PCP and pulmonology. Return precautions were given and she and her family verbalized understanding. Physician Review: Patient Assessed, Agree with Above Assessment and Plan Critical Care: No Time Spent Managing Pts care (In Minutes): 30
[2022-11-26 21:56] VITALS: TEMP 98.3
[2022-11-26 21:58] VITALS: BP 144/87; O2SAT 98
--- NOTE | 2022-11-28 07:13 | EKG ---
Test Date: 2022-11-26 Test Time: 19:49:11 Process Worker: CINDY MEASUREMENT RESULTS: Intervals: Rate: 95 OK: 130 QRSD: 76 QT: 352 QTc: 442 [place]: P: 82 OK: 130 QRS: 75 T: 104 INTERPRETIVE STATEMENTS: Normal sinus rhythm Nonspecific ST abnormality Abnormal ECG Compared to ECG 11/23/2022 19:26:54 ST (T wave) deviation now present Ventricular premature complex(es) no longer present Electronically Signed On 11-28-22 07:09:48 CDT by Minh James
== END | disposition home or self-care (01) ==
LOC: ER 17:20
DX: J96.22 Acute and chronic respiratory failure with hypercapnia (principal); E66.2 Morbid (severe) obesity with alveolar hypoventilation; Z93.0 Tracheostomy status; Z72.0 Tobacco use; Z71.6 Tobacco abuse counseling; I50.9 Heart failure, unspecified; E11.9 Type 2 diabetes mellitus without complications; I10 Essential (primary) hypertension; J44.9 Chronic obstructive pulmonary disease, unspecified; Z88.2 Allergy status to sulfonamides; Z88.5 Allergy status to narcotic agent; Z88.8 Allergy status to other drugs, medicaments and biological substances
CPT/HCPCS: 93005; 85025; 80048; 36415; 83735; 85610; 80076; 81003; 84484; 83690; 83880; 71045; 82805; 96374; 99285; J7614; J2930; J7030

== ENCOUNTER 2022-12-07 03:43 | Emergency (ER) | payer OTHER ==
--- OUTSIDE RECORDS SUMMARY | 2022-12-07 04:04 | XMS REPORT | Continuity of Care Document ---
:1960 Author Organization [facility] t Address [address] [place] [address] [address] [place] [address] Care Team Providers Name Role Phone PCP, PATIENT DOES NOT HAVE A Primary Care Physician Unavaildwight Johnson MD, Tracy Grace Attending Clinician Amy Lira MD Attending Clinician AMY LIRA Attending Clinician Unavailable JOSLYN RUELAS Attending Clinician Unavailable Joslyn Ruelas DO Attending Clinician Alessandra Arrieta RN Attending Clinician COREY GONZALEZ Attending Clinician Unavailable Jonas Hernandez MD Attending Clinician Corey Gonzalez MD Attending Clinician GEN ACEVEDO Attending Clinician Unavailable Gen Acevedo DO Attending Clinician PAULA ROWE Attending Clinician Unavailable Paula Rowe MD Attending Clinician Sanjay HENRY Attending Clinician Unavailable Sanjay Kothari Attending Clinician SUNSHINE PELAEZ Attending Clinician Unavailable Kevin Lebron DO Attending Clinician Sunshine Pelaez MD Attending Clinician [phone] VALERIANO PANTOJA Attending Clinician Unavailable Valeriano Pantoja MD Attending Clinician JONAS HERNANDEZ Attending Clinician Unavailable Layne Guallpa MD Attending Clinician SHAHLA ANDRADE Attending Clinician Unavailable Erik DESAI, Janis Pereira Attending Clinician [phone] Cory Cee MD Attending Clinician DUKE VELAZQUEZ Attending Clinician Unavailable [facility] Attending Clinician Patria Brewer LVN Attending Clinician ENE GIVENS Attending Clinician Unavailable ENE GIVENS Attending Clinician Unavailable Ene Givens MD Attending Clinician Doctor Unassigned, [place] Attending Clinician Unavailable LAYNE GUALLPA Attending Clinician Unavailable APARNA BATES Attending Clinician Unavailable pAarna Bates MD Attending Clinician CAMILA ORTIZ Attending [...] Clinician Unavailable GAB NGUYEN Admitting Clinician Unavailable JUEN CALDERON Admitting Clinician Unavailable Payers Payer Name Policy Type Policy Number Effective Date Expiration Date S anatoly SANTIAGO FROM [id number] 2020 [facility] 00:00:00 [employer] [id number] 2022 OUT OF NETWORK 00:00:00 [employer] [place] [id number] 2019 00:00:00 Problems Condition Condition Condition Status [...] urgency ve urgency 1-11 it y of 00:: [place] [facility] Chest pain Chest pain Disease Active U nivers 8-02 ity of 00:00: [place] [facility] Abdominal Abdominal Disease Active Uni vers pain pain 8- ity of 00:00: Medical Branch Tracheomal Tracheomal Disease Active U nivers acia acia 7 ity of 00:: Medical Branch Tracheosto Tracheosto Disease Active U nivers my in my in [address] 00:00: Medical Branch Dyspnea, Dyspnea, Disease Active Unive rs unspecifie unspecifie 7 it y of d type d type 00:00: [place] 00 Medical Branch Acute Acute Disease Active Univers respirator respirator 7-21 it y of y failure y failure 00:[place] hypoxia hypoxia Branch and and hypercapni hypercapni a a Elevated Elevated Disease Active Unive rs brain brain 7-06 ity of natriureti natriureti [place] c peptide c peptide 00 [facility] (BNP) (BNP) Branch level level Anasarca Anasarca Disease Active Unive rs 7-05 ity of 00:00: [place] 00 Medical Branch Acute Acute Disease Active 2016-07 [...] [place]as y failure y failure 00 [facility] Branch Obesity Obesity Disease Active Univers (BMI (BMI 3-17 ity of 30-39.9) 30-39.9) 00:00: [place] 00 Medical Branch VAP VAP Disease Active Univers (ventilato (ventilato 5-08 it y of r-associat r-associat 00:00: [place] ed ed 00 Medical pneumonia) pneumonia) Br anch Acute Acute Disease Active Univers respirator respirator 5-08 it y of y failure y failure 00:[place] 00 Medical hypercapni hypercapni Br anch a a SOB SOB Disease Active Univers (shortness (shortness 1-10 it y of of breath) of breath) [place]:00: [place] Hypoxia Hypoxia Disease Active Univers 9-24 ity of 00:00: [place] 00 Medical Branch Hypercapni Hypercapni Disease Active U nivers c c 9-01 ity of respirator respirator 00:[place] y failure, y failure, 00 Me dical chronic chronic Branch Respirator Respirator Disease Active U nivers y failure y failure 8-16 ity of with with 00:00: [place] hypoxia hypoxia Medical Branch COPD COPD Disease Active Univers exacerbati exacerbati 7-28 it y of on on 00:00: [place] [facility] Respirator Respirator Disease Active 2014- U nivers y failure y failure 7-04 ity of with with 00:00: [place] hypoxia hypoxia Medical and and Branch hypercapni hypercapni a a Respirator Respirator Disease Active U nivers y failure y failure 6-09 ity of 00:00: [place] [facility] Hypotensio Hypotensio Disease Active U nivers n n 3-10 ity of 00:00: [place] [facility] COPD COPD Disease Active Univers (chronic (chronic 1-04 ity of obstructiv obstructiv 00:00: [place] e 00 Medical pulmonary pulmonary Bran ch disease) disease) Allergies, Adverse Reactions, Alerts Allergy Allergy Status Severity Reaction(s) Onset Inactive Treating Comm ents Source Name Type Date Date Clinician Methocar Propensi Active Hives, Rash [facility] adverse [facility]: Medical reaction 00 Center s Sulfa Propensi Active Other (See Headache [facility] (Sulfona ty to Comments) 5-03 [facility] mide adverse 00:00: Medical Antibiot reaction 00 Center ics) s METHOCAR Allergy Active High Hives [facility]OL [facility]03 [facility] 00:[facility]: Medical 00 Center SULFA Allergy Active Other [facility] (SULFONA 5-03 [facility] MIDE 00:00: Medical ANTIBIOT 00 Center ICS) CODEINE DRUG Active Unknown-Cmnt Uni vers INGREDI 7- ity of 00:00: [place] 00 Medical Branch TRAMADOL DRUG Active Unknown-Cmnt Un alexia INGREDI 7- ity of 00:00: [place] 00 Medical Branch SERTRALI DRUG Active Unknown-Cmnt Un [...] Medical s Branch CIPROFLO DRUG Active Other-Cmnt [facility] ers XACIN INGREDI 03-08 ity of HCL 00:00: Medical Branch Ciproflo Propensi Active Other - See Mouth U nivers xacin ty to comments 03-08 broke out ity o f Hcl adverse 00:00: in [place] reaction blisters, Medic al s but pt Branch thinks this was to sprite not actual medicatio n TIOTROPI DRUG Active Med Other-Cmnt [facility] ers UM INGREDI 02-22 ity of BROMIDE 00:00: Medical Branch Tiotropi Propensi Active Other - See Makes U nivers um ty to comments 02-22 chela ity of [place] adverse 00:00: swell [place] reaction 00 Medical s to Branch drug LEVOFLOX DRUG Active N/V Univers ACIN INGREDI 01-18 ity of 00:00: Medical Branch METHOCAR DRUG Active Hives Univers BAMOL INGREDI 01-18 ity of 00:00: [place] [facility] Levoflox Propensi Active Nausea Pt unsure Uni vers acin ty to and/or 01-18 if ever ity of adverse Vomiting 00:00: had [place] reaction nausea/vo Medic al s miting to Branch this; thinks she's taken it before w/o problems Methocar Propensi Active Hives Univer s bamol ty to 6-26 ity of adverse 00:00: [place] reaction 00 [...] History SDOH Social Unive rsity of Connections [facility] Med ical Together Branch History SDOH Social Unive rsity of Connections [facility] Medical Branch History SDOH Social Unive rsity of Connections [place] [facility] Membership Branch History SDOH Social Unive rsity of Connections [place] [facility] Meetings Branch History SDOH [facility] [...] 00:00:00 00:00:00 Medical Ce nter Lived History SDLA 2022-11-25 2022-11-[address] [facility] Housing Homeless 00:00:00 00:00:00 Medical Center Last Year Alcohol intake 2022-11-25 2022-11-25 Ex-drinker [facility] 00:00[facility]00 00:00:00 (finding) Medical Center History of tobacco 2022-11-[address] [facility] use 00[facility]00:00 Medical Center History [facility] 2022-08-06 2022-08-06 1 University o f Alcohol Frequency 00:00:00 00:00:00 [facility] [place] edical Branch History SDLA Social 2022-08-06 2022-08-06 5 Unive rsity of Connections Phone 00:00:00 00:00:00 [facility] Branch History [facility] Social 2022-08-06 2022-08-06 3 Unive rsity of Connections Living 00:00:00 00:00:00 [facility] Branch History [facility] 2022-08-06 2022-08-06 7 University o f Physical Activity 00:00:00 00:00:00 [facility] DPW Branch History [facility] 2022-08-06 2022-08-06 1 University o f Physical Activity 00:00:00 00:00:00 [facility] MPS Branch History [facility] 2022-08-06 2022-08-06 5 University o f Financial 00:00:00 00:00:00 [facility] [place] [facility] History [facility] Food 2022-08-06 2022-08-06 1 Univers ity of Worry 00:00:00 00:00:00 [facility] [place] [facility] History [facility] Food 2022-08-06 2022-08-06 1 Univers ity of Scarcity 00:00:00 00:00:00 [facility] [place] [facility] Cigarettes smoked 2022-08-05 2022-08-05 Univers ity of current (pack per 00:00:00 00:00:00 [facility] ) - Reported Branch Cigarette 2022-08-05 2022-08-05 University of pack-years 00:00:00 00:00:00 [facility] [place] [facility] Tobacco use and 2022-08-05 2022-08-05 Smokeless Universit y of exposure 00:00:00 00:00:00 tobacco non-user [facility] Tobacco Comment 2022-02-12 2022-02-12 Pt trached Universit y of 00:00:00 00:00:00 [facility] [place] [facility] Sex Assigned At [address] [facility]ne kes 00:00:00 00:00:00 [facility] Smoking Status Start Date Stop Date Source Ex-smoker 2022-11-25 00:00:00 2022-11-25 00:00:[address] [facility] Smokes tobacco daily 2022-02-12 00:00:00 [facility] Medications Ordered Filled Start Stop Current Ordering Indication Dosage Frequency Signature Comments Components Source Medication Medication Date Date Medication? Clinician (SIG) Name Name levothyroxi 2022- Yes 50ug Take [address] [facility] ne 11-27-04 tablet (50 [facility] (SYNTHROID, 00:00: 23:59 mcg total) Medical LEVOTHROID) 00 :00 by mouth Cent er 50 MCG Every tablet morning on an empty stomach for 30 days. levothyroxi 2022- Yes 50ug Take [address] [facility] [address] ne 11-27-04 tablet (50 [facility] (SYNTHROID, 00:00: 23:59 mcg total) Medical LEVOTHROID) 00 :00 by mouth Cent er 50 MCG Every tablet morning on an empty stomach for 30 days. levothyroxi 2022- No 50ug Take [address] [facility] [facility] ne 11-27-04 tablet (50 [facility] (SYNTHROID, 00:00: 00:00 mcg total) Medical LEVOTHROID) 00 :00 by mouth Cent er 50 MCG Every tablet morning on an empty stomach for 30 days. levothyroxi 2022- No 50ug Take [address] [facility] ne 11-27-04 tablet (50 [facility] (SYNTHROID, 00:00: 00:00 mcg total) Medical LEVOTHROID) 00 :00 by mouth Cent er 50 MCG Every tablet morning on an empty stomach for 30 days. pregabalin 2022- Yes 300mg Q.5D Take [address] (LYRICA) 11-26- capsule [facility] 300 MG 00:00: 23:59 (300 mg Medical capsule 00 :00 total) by Center mouth in the morning and 1 capsule (300 mg total) before bedtime. Do all this for 30 days. Max Daily Amount: 600 mg. QUEtiapine 2022- Yes 50mg QD Take [address] (SEROquel) 11-26-03 tablet (50 Yvonne kes 50 MG 00:00: 23:59 mg total) Medica l tablet 00 :00 by mouth Center nightly for 30 days. amLODIPine 2022-2022- Yes 5mg QD Take [address] [facility] (NORVASC) 5 5-04 06-03 tablet (5 Yvonne kes MG tablet 00:00: 23:59 mg total) Me dical 00 :00 by mouth Center in the morning for 30 days. furosemide 2022-2022- Yes 20mg QD Take [address] [facility] (LASIX) 20 5- 06-03 tablet (20 Yvonne kes MG tablet 00:00: 23:59 mg total) Me dical 00 :00 by mouth Center in the morning for 30 days. PARoxetine 2022-2022- Yes 10mg QD Take [address] [facility] (PAXIL) 10 5- 06-03 tablet (10 Yvonne kes MG tablet 00:00: 23:59 mg total) Me dical 00 :00 by mouth Center in the morning for 30 days. rosuvastati 2022-2022- Yes 10mg QD Take [address] [facility] n (CRESTOR) 5- 06-03 tablet (10 L ukes 10 MG 00:00: 23:59 mg total) Medica l tablet 00 :00 by mouth Center in the morning for 30 days. spironolact 2022- Yes 25mg QD Take [address] [facility] one 5- 06-03 tablet (25 [facility] (ALDACTONE) 00:00: 23:59 mg total) Medical 25 MG 00 :00 by mouth Center tablet in the morning for 30 days. tamsulosin 2022- Yes .4mg QD Take [address] [facility] (FLOMAX) 5- 06-03 capsule [facility] 0.4 mg Cap 00:00: 23:59 (0.4 mg Med ical 24 hr 00 :00 total) by Center capsule mouth in the morning for 30 days. furosemide 2022-2022- Yes 20mg QD Take [address] [facility] (LASIX) 20 5-04 06-03 tablet (20 Yvonne kes MG tablet 00:00: 23:59 mg total) Me dical 00 :00 by mouth Center in the morning for 30 days. PARoxetine 2022-2022- Yes 10mg QD Take [address] (PAXIL) 10 5-04 06-03 tablet (10 Yvonne kes MG tablet 00:00: 23:59 mg total) Me dical 00 :00 by mouth Center in the morning for 30 days. rosuvastati 2022- Yes 10mg QD Take [address] [facility] n (CRESTOR) 11-26-03 tablet (10 L ukes 10 MG 00:00: 23:59 mg total) Medica l tablet 00 :00 by mouth Center in the morning for 30 days. spironolact 2022-2022- Yes 25mg QD Take [address] [facility] [facility] one -10 29-03 tablet (25 [facility] (ALDACTONE) 00:00: 23:59 mg total) Medical 25 MG 00 :00 by mouth Center tablet in the morning for 30 days. tamsulosin 2022- Yes .4mg QD Take [address] (FLOMAX) 11-26- capsule [facility] 0.4 mg Cap 00:00: 23:59 (0.4 mg Med ical 24 hr 00 :00 total) by Center capsule mouth in the morning for 30 days. pregabalin 2022- Yes 300mg Q.5D Take [address] (LYRICA) 11-26- capsule [facility] 300 MG 00:00: 23:59 (300 mg Medical capsule 00 :00 total) by Center mouth in the morning and 1 capsule (300 mg total) before bedtime. Do all this for 30 days. Max Daily Amount: 600 mg. QUEtiapine 2022- Yes 50mg QD Take [address] (SEROquel) 11-26-03 tablet (50 Yvonne kes 50 MG 00:00: 23:59 mg total) Medica l tablet 00 :00 by mouth Center nightly for 30 days. amLODIPine 2022- Yes 5mg QD Take [address] [facility] [facility] (NORVASC) 5 11-26-03 tablet (5 Yvonne kes MG tablet 00:00: 23:59 mg total) Me dical 00 :00 by mouth Center in the morning for 30 days. tamsulosin 2022- No .4mg QD Take [address] (FLOMAX) 11-26-04 capsule [facility] 0.4 mg Cap 00:00: 00:00 (0.4 mg Med ical 24 hr 00 :00 total) by Center capsule mouth in the morning for 30 days. amLODIPine 0 2022- No 5mg QD Take [address] [facility] (NORVASC) 5 5-04 05-04 tablet (5 Yvonne kes MG tablet 00:00: 00:00 mg total) Me dical 00 :00 by mouth Center in the morning for 30 days. furosemide 2022-2022- No 20mg QD Take [address] [facility] (LASIX) 20 5-04 05-04 tablet (20 Yvonne kes MG tablet 00:00: 00:00 mg total) Me dical 00 :00 by mouth Center in the morning for 30 days. rosuvastati 2022-2022- No 10mg QD Take [address] [facility] [facility] n (CRESTOR) 5-04 05-04 tablet (10 L ukes 10 MG [...] Center in the morning for 30 days. tamsulosin 2022- No .4mg QD Take [address] (FLOMAX) 5-04 05-04 capsule [facility] 0.4 mg Cap 00:00: 00:00 (0.4 mg Med ical 24 hr 00 :00 total) by Center capsule mouth in the morning for 30 days. amLODIPine 2022- No 5mg QD Take [address] [facility] (NORVASC) 5 5-04 05-04 tablet (5 Yvonne kes MG tablet 00:00: 00:00 mg total) Me dical 00 :00 by mouth Center in the morning for 30 days. furosemide 2022-2022- No 20mg QD Take [address] [facility] [facility] (LASIX) 20 5-04 05-04 tablet (20 Yvonne kes MG tablet 00:00: 00:00 mg total) Me dical 00 :00 by mouth Center in the morning for 30 days. rosuvastati 2022- No 10mg QD Take [address] n (CRESTOR) 5-04 05-04 tablet (10 L ukes 10 MG [...] QD Take [address] [facility] [facility] (PAXIL) 10 5- 05-04 tablet (10 Yvonne kes MG tablet 00:00: 00:00 mg total) Me dical 00 :00 by mouth Center in the morning for 30 days. predniSONE 2022- Yes [id number] 50mg Take 5 Univers 10 mg 09-10-21 tablets by ity of tablet 00:00: 05:59 mouth in [place] 00 :00 the [facility] Branch for 4 days. methylpredn 2022- No 125mg 125 mg, U nivers isolone sod 09-09 Slow IV ity of succ 14:00: 13:20 Push, ONCE [place] (SOLU-MEDRO 00 :00 NOW, 1 Medica l L) dose, On Branch injection Wed 125 mg 09/09/22 at 0800, CT albuterol 2022- No 5mg 5 mg, Univer s (PROVENTIL) 09-09 Inhalation i ty of 2.5 mg /3 14:00: 13:13 , ONCE, 1 [place] mL (0.083 00 :00 dose, On Medica l %) Wed [place] nebulizer 09/09/22 at solution 5 0800, CT mg predniSONE 2022- No [id number] Take 3 Univers 10 mg -08-21 06 tablets by ity of tablet 00:00: 05:59 mouth [place] 00 :00 daily for Medical 3 days, Branch THEN 2 tablets daily for 3 days, THEN 1 tablet daily for 3 days. predniSONE 2022- No [id number] Take 3 Univers 10 mg -08-21 06 tablets by ity of tablet 00:00: [...] Medica l base)/3 mL needed for Bra [facility] nebulizer Wheezing. solution dulaglutide 2022-0 Yes Trulicity U nivers (TRULICITY) 1-16 3 mg/0.5 ity of 3 mg/0.5 mL 17:04: mL [place] PnIj 37 subcutaneo Medical pen Branch injector metFORMIN 2022-0 Yes 750mg Take 750 Uni vers 500 mg 24 1-16 mg by ity of hr tablet 17:04: mouth [place] 37 daily with Medical breakfast. Branch spironolact 2022-0 Yes 25mg Take 25 mg Univers one 25 mg 1-16 by mouth ity of tablet 17:04: in the [place] 37 morning. Medical Branch Levothyroxi 2022-0 Yes 50ug Take 50 Uni vers ne 100 mcg 1-16 mcg by ity of capsule 17:04: mouth. [place] [address] Medical Branch famotidine 2022-0 Yes 40mg Take 40 mg U nivers 40 mg 1-16 by mouth ity of tablet 17:04: in the [place] [address] morning. Medical Branch magnesium 2022-0 Yes 500mg Take 500 Uni vers gluconate 1-16 mg by ity of (MAG-G 17:04: mouth at [place] ORAL) 37 bedtime. Medical Branch montelukast 2022-0 [...] Medica l base)/3 mL needed for Bra [facility] nebulizer Wheezing. solution dulaglutide 2022-0 Yes Trulicity U nivers (TRULICITY) 1-16 3 mg/0.5 ity of 3 mg/0.5 mL 17:04: mL [place] PnIj 37 subcutaneo Medical pen Branch injector metFORMIN 2022-0 Yes 750mg Take 750 Uni vers 500 mg 24 1-16 mg by ity of hr tablet 17:04: mouth [place] 37 daily with Medical breakfast. Branch spironolact 2022-0 Yes 25mg Take 25 mg Univers one 25 mg 1-16 by mouth ity of tablet 17:04: in the [place] [address] morning. Medical Branch Levothyroxi 2022-0 Yes 50ug Take 50 Uni vers ne 100 mcg 1-16 mcg by ity of capsule 17:04: mouth. [place] [address] Medical Branch famotidine 2022-0 Yes 40mg Take 40 mg U nivers 40 mg 1-16 by mouth ity of tablet 17:04: in the [place] [address] morning. Medical Branch magnesium 2022-0 Yes 500mg Take 500 Uni vers gluconate 1-16 mg by ity of (MAG-G 17:04: mouth at [place] ORAL) 37 bedtime. Medical Branch montelukast 0 [...] Medica l base)/3 mL needed for Bra [facility] nebulizer Wheezing. solution dulaglutide 0 Yes Trulicity U nivers (TRULICITY) 1-16 3 mg/0.5 ity of 3 mg/0.5 mL 17:04: mL [place] PnIj 37 subcutaneo Medical pen Branch injector metFORMIN 2022-0 Yes 750mg Take 750 Uni vers 500 mg 24 1-16 mg by ity of hr tablet 17:04: mouth [place] [address] daily with Medical breakfast. Branch spironolact 0 Yes 25mg Take 25 mg Univers one 25 mg 1-16 by mouth ity of tablet 17:04: in the [place] [address] morning. Medical Branch Levothyroxi 2022-0 Yes 50ug Take 50 Uni vers ne 100 mcg 1-16 mcg by ity of capsule 17:04: mouth. [place] [address] Medical Branch famotidine 2022-0 Yes 40mg Take 40 mg U nivers 40 mg 1-16 by mouth ity of tablet 17:04: in the [place] [address] morning. Medical Branch magnesium 2022-0 Yes 500mg Take 500 Uni vers gluconate 1-16 mg by ity of (MAG-G 17:04: mouth at [place] ORAL) 37 bedtime. Medical Branch montelukast 2022-0 Yes 10mg Take 10 mg Univers 10 mg 1-16 by mouth. ity of tablet 17:04: [place] 37 Medical Branch ondansetron 3-0 2023- No 8mg Take 8 mg Univers 8 mg -16 -16 by mouth ity of disintegrat 15:21: 00:00 [place] 8 [place] ing tablet 55 :00 (eight) Medica l hours as Branch needed for Nausea and Vomiting (N/V). ondansetron 3-0 202- No 8mg Take 8 mg Univers [...] Nausea and Vomiting (N/V) hydrOXYzine 2023-0 Yes [id number] 10mg Take 1 Univers 10 mg 1-16 06 tablet by ity of tablet 00:00: mouth [place] [id number] every 8 Medical (eight) Branch hours as needed for Anxiety. pregabalin 2023-0 Yes [id number] 300mg Take 1 Univers 300 mg 1-16 06 capsule by ity of capsule 00:00: mouth in [place] 00 the Medical morning Branch and 1 capsule in the evening. hydrOXYzine 2023-0 Yes [id number] 10mg Take 1 Univers 10 mg 1-16 06 tablet by ity of tablet 00:00: mouth [place] 00 every 8 Medical (eight) Branch hours as needed for Anxiety. pregabalin 2023-0 Yes [id number] 300mg Take 1 Univers 300 mg 1-16 06 capsule by ity of capsule 00:00: mouth in [place] 00 the Medical morning Branch and 1 capsule in the evening. hydrOXYzine 2022-0 Yes [id number] 10mg Take 1 Univers 10 mg 08-10 06 tablet by ity of tablet 00:00: mouth [place] 00 every 8 Medical (eight) Branch hours as needed for Anxiety. pregabalin 2022-0 Yes [id number] 300mg Take 1 Univers 300 mg 16 06 capsule by ity of capsule 00:00: mouth in [place] 00 the Medical morning Branch and 1 [...] Until Discontinu ed, Routine sulfur 2022- No [id number] 5mL 5 mL, Unive rs hexafluorid 08-07 Intravenou i ty of e microsphr 17:00: 17:00 s, ONCE, 1 [place] (LUMASON) 00 :00 dose, On Medica l injection 5 Wed Branch mL 08/07/22 at 1100, Routine
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 Restricted medication : STELLA IVORY [...] 500mL at 100 Univ ers (NS) bolus 1-13 01-13 mL/hr, 500 it y of infusion 09:00: 08:13 mL, IV [place] 500 mL 00 :32 Infusion, Medical ONCE, 1 Branch dose, On Wed08/07/22 at 0300, STAT midodrine 2022- No 5mg 5 mg, Univer s (PROAMATINE 08-07 Oral, ity of ) tablet 5 06:30: 05:50 ONCE, 1 [place] mg 00 :00 dose, On Medical Wed08/07/22 at 0030, Routine midodrine 2022- No 5mg 5 mg, Univer s (PROAMATINE 08-0716 Oral, TID, i ty of ) tablet 5 02:00: 17:05 First dose [place] mg 00 :51 (after Medical last Branch modificati on) on Wed08/06/22 at 2000, Until Discontinu ed, CT NaCl 0.9% 2022- No 500mL at 999 Univ ers (NS) bolus 08-06 mL/hr, 500 it y of infusion 21:15: 21:36 mL, IV [place] 500 mL 00 :48 Piggyback, Medical ONCE, 1 Branch dose, On Wed08/06/22 at 1515, STAT midodrine 2022- No 10mg 10 mg, Unive rs (PROAMATINE 08-06 Oral, TID, i ty of ) tablet 10 20:15: 23:07 First dose [place] mg 00 :59 (after Medical last Branch reorder) on Wed08/06/22 at 1415, Until Discontinu ed, CT iopamidol 2022- No [id number] 90mL 90 mL, Univers (ISOVUE 08-06 Intravenou ity o f 370-500 mL) 16:45: 17:00 s, ONCE, 1 [place] injection 00 :00 dose, On Medica l 90 mL [facility] Branch 08/06/22 at 1100, Routine insulin Yes [...] On Anayeli 08/06/22 at 0800, STAT midodrine 2022- No 10mg 10 mg, Unive rs (PROAMATINE 08-06 Oral, ity of ) tablet 10 14:00: 13:28 ONCE, 1 [place] mg 00 :00 dose, On Medical Anayeli Branch 08/06/22 at 0800, CT insulin 2022- No 15U 15 Units, Univ ers glargine 08-06 Subcutaneo ity of (LANTUS 05:30: 07:08 us, ONCE, [place] U-100) 00 :00 1 dose, On Medical injection [facility] Branch 15 Units 08/05/22 at 2330, [...] acetaminoph Yes 1000mg 1,000 mg, Univers en 12 Oral, ity of (TYLENOL) 04:40: BIDPRN, [place] tablet 20 Starting Medical 1,000 mg on [facility] Branch 08/05/22 at 2240, Until Discontinu ed, Routine, Pain (scale 1-3) ceFEPIme 2022- No 1000mg 1,000 mg, U nivers (MAXIPIME) 08-05 IV ity of 1,000 mg in 22:00: 21:59 Piggyback, [place] NaCl 0.9% 00 :00 Q8H ABX, Medica [...] at 0945, Until Discontinu ed, Routine Sliding Yes Subcutaneo Univ ers Scale 1-11 us, [...] Yes 50ug 50 mcg, Uni vers ne 11 Oral, ity of (SYNTHROID) 12:00: QAM-0600, T [...] Yes .5mg 0.5 mg, Univ ers (PULMICORT -11 Inhalation ity of RESPULE) 07:30: , BID, [place] nebulizer 00 First dose Medi michel solution on Wed Branch 0.5 mg 08/05/22 at 0130, Until Discontinu ed, Routine ipratropium 2022-0 Yes 3mL 3 mL, Unive rs -albuteroL 11 Inhalation ity of (DUONEB) 07:30: , Q4H, [place] 0.5 mg-3 00 First dose Medic al mg(2.5 mg on Wed Branch base)/3 mL 08/05/22 at nebulizer 0130, solution 3 Until mL Discontinu ed, Routine methylPREDN 2022-0 202- No 40mg 40 mg, Uni vers ISolone sod 08-05 01-12 Intravenou i ty of succ 07:30: 15:21 s, Q8H, [place] (SOLU-MEDRO 00 :13 First dose Me dical [...] swallow or has mental changes. dextrose 50 2022-0 Yes 25mL 25 mL, Univ ers % in water 11 Slow IV ity of (D50W) 07:27: Push, PRN, [place] injection 58 Starting Medica l 25 mL on Wed Branch 08/05/22 at 0127, Until Discontinu ed, CT, Blood Glucose < or = 70 mg/dL and patient is unable to swallow or has mental status changes. methylpredn 2021-07 Yes 125mg 125 mg, Un alexia isolone sod -11 Intravenou it y of succ 06:00: s, Q6H, [place] (SOLU-MEDRO 00 First dose Me dical L) on Fri Branch injection 06/05/22 125 mg at 0000, Until Discontinu ed, Routine iopamidol 2021-07 No [id number] 75mL 75 mL, Univers (ISOVUE 005-13 Intravenou ity o f 370-500 mL) 07:00: [...] Branch tablet 05/02/22 at 0215, Routine piperacilli 2021-07 No 3.375g 3.375 g, Univers n-tazobacta 0-05 [...] Branch 04/28/22 at 2315, CT FENTanyl PF 2021-07 No 50ug 50 mcg, Un alexia (SUBLIMAZE 0-05 10-05 Slow IV ity o f (PF)) 04:15: 03:13 Push, [place] injection 00 :00 ONCE, 1 Medical 50 mcg dose, On Branch 04/28/22 at 2315, STAT amoxicillin 2021-07 Yes [id number] 500mg Take 1 Univers -pot 0-05 tablet by ity of clavulanate 00:00: mouth [place] 500 mg 00 every 12 Medical 500-125 mg (twelve) Branc h tablet hours. amoxicillin 2021-07 Yes [id number] 500mg Take 1 Univers -pot 0-05 tablet by ity of clavulanate 00:00: mouth [place] 500 mg 00 every 12 Medical 500-125 mg (twelve) Branc h tablet hours. amoxicillin 2021-07 Yes [id number] 500mg Take 1 Univers -pot 0-05 tablet by ity of clavulanate 00:00: mouth [place] 500 mg 00 every 12 Medical 500-125 mg (twelve) Branc h tablet hours. amoxicillin 2021-07 Yes [id number] 500mg Take 1 Univers -pot 0-05 tablet by ity of clavulanate 00:00: mouth [place] 500 mg 00 every 12 Medical 500-125 mg (twelve) Branc h tablet hours. amoxicillin 2021-07- No [id number] 500mg Take 1 Univers -pot 0-05 01-16 [...] needed for Bra nch nebulizer Wheezing. solution dulaglutide Yes Trulicity U [...] needed for Bra nch nebulizer Wheezing. solution dulaglutide 0 Yes Trulicity U nivers (TRULICITY) 8-05 3 mg/0.5 ity of 3 mg/0.5 mL 17:58: mL [place] PnIj 14 [facility] pen Branch injector metFORMIN 0 Yes 750mg [...] Medica l base)/3 mL needed for Bra nc nebulizer Wheezing. solution dulaglutide 0 Yes Trulicity U nivers (TRULICITY) 8-05 3 mg/0.5 ity of 3 mg/0.5 mL 17:58: mL [place] [facility] Branch injector metFORMIN 2021-0 Yes 750mg Take [...] Medica l base)/3 mL needed for Bra [facility] nebulizer Wheezing. solution dulaglutide Yes Trulicity U nivers (TRULICITY) 8-05 3 mg/0.5 ity of 3 mg/0.5 mL 17:58: mL [place] PnIj 14 subcutaneo Medical [facility] Branch injector metFORMIN 2021-0 Yes 750mg Take 750 Uni vers 500 mg 24 8-05 mg by ity of hr tablet 17:58: mouth [place] 14 daily with Medical breakfast. Branch spironolact 2022-0 Yes 25mg Take 25 mg Univers one [...] as Medica l base)/3 mL needed for [facility] nebulizer Wheezing. solution dulaglutide Yes Trulicity U [...] Medica l base)/3 mL needed for Bra [facility] nebulizer Wheezing. solution dulaglutide Yes Trulicity U [...] mcg by ity of capsule 17:58: mouth. [place] 14 Medical Branch semaglutide 2021- No inject Uni vers (OZEMPIC) 02-27 under the ity of 0.25 mg or [...] 1 Compa as 00 :00 dose, On Wed02/25/22 Branch at 0300, Routine gabapentin 2021- No 300mg 300 mg, Un alexia (NEURONTIN) 02-25 Oral, ity of capsule 300 06:15: 05:24 ONCE, 1 [place] mg 00 :00 dose, On Wed02/25/22 Branch at 0115, Routine lactated 2021- [...] Dose >=24mg ECG monitoring is advisable.
pantoprazol 2021- No 40mg 40 mg, Uni vers e 02-25 Slow IV ity of (PROTONIX) 01:00: 11:51 Push, [place] injection 00 :53 Q12H, Medical 40 mg First dose Branch on Wed02/24/22 at 2000, Until Discontinu ed lactated 2021- No 500mL at 999 Unive rs ringers IV 02-24 mL/hr, 500 it y of infusion 17:30: 03:57 mL, [place] 500 mL 00 :22 Intravenou Medical s, ONCE, 1 Branch dose, On Wed02/24/22 at 1230, Routine lactated 2021- No 500mL at 999 Unive rs ringers IV 02-24 0802 mL/hr, 500 it y of infusion 17:30: 18:42 mL, [place] 500 mL 00 :07 Intravenou Medical s, ONCE, 1 Branch dose, On Wed02/24/22 at 1230, Routine polyethylen Yes 17g 17 g, Unive rs e glycol 02-24 Oral, BID, ity o f 3350 powder 13:00: First dose [place] 17 g 00 on Wed Medical 02/24/22 at [place] 0800, Until Discontinu ed, Routine HYDROcodone Yes [...] 00 :00 ONCE, 1 Medical dose, On [place] Wed02/24/22 at 0445, Routine NORepinephr 2021- No .05ug/k 0.05-0.5 Univers ine 4 mg in 02-24 08-03 g/min mcg/kg/min ity of 0.9% NaCl 04:27: [...] time.
lactated 2021- No 1000mL at 999 [facility] ers ringers IV 02-24 mL/hr, ity of infusion 03:15: 02:10 1,000 mL, Compa as 1,000 mL 00 :00 Intravenou Medic al s, ONCE, 1 Branch dose, On [facility] 02/23/22 at 2215, Routine sennosides Yes 8.6mg 8.6 mg, Uni vers (SENOKOT) 02-23 Oral, ity of tablet 8.6 22:45: DAILY, [place] mg 00 First dose Medical on [facility] 02/23/22 at 1745, Until Discontinu ed, Routine simethicone Yes 80mg 80 mg, [facility] ers (GAS RELIEF 02-23 Oral, ity of (SIMETHICON 14:00: PC+HS, [place] E)) 00 First dose Medical chewable on [facility] tablet 80 02/23/22 at mg 0900, Until Discontinu ed, Routine metoprolol 2021- No 25mg 25 mg, [facility] ers succinate 02-23 Oral, BID, ity of XL (TOPROL 13:00: 03:28 First dose [place] XL) tablet 00 :19 on [facility] Medical 25 mg 02/23/22 at Branch 0800, Until Discontinu ed, Routine melatonin 2021- No 6mg 6 mg, Univer s (MELATIN) 02-23 Oral, ONCE ity of tablet 6 mg 08:15: 07:18 NOW, 1 Compa as 00 :00 dose, On Medical [facility] 02/23/22 Branch at 0315, Routine hydrOXYzine 2021- No 10mg 10 mg, Uni vers (ATARAX) 02-23 Oral, ity of tablet 10 01:58: 03:43 Q8HPRN, [place] mg 32 :01 Starting Medical on [facility] 02/22/22 at 2058, Until 02/23/22 at 2243, Routine, Anxiety ondansetron 2021- [...] as mg 22 :05 Starting Medical on [place] Branch 02/22/22 at 1714, Until Wed02/24/22 at 0444, Routine, Anxiety pregabalin Yes 300mg 300 mg, Uni vers (LYRICA) 02-22 Oral, BID, ity o f capsule 300 19:30: First dose [place] mg 00 (after Medical last Branch modificati on) on [place] 02/22/22 at 1430, Until Discontinu ed, Routine trimethoben Yes 200mg 200 mg, Un alexia zamide 02-22 Intramuscu ity of (TIGAN) 17:45: lar, [place] injection 43 Q6HPRN, Medical 200 mg Starting Branch on [place] 02/22/22 at 1245, Until Discontinu ed, Routine, Nausea and Vomiting (N/V) levoFLOXaci 2021- No 750mg 750 mg, U nivers n 02-22 Oral, Q24H ity of (LEVAQUIN) 17:45: 18:17 ABX, 3 [place] tablet 750 00 :00 doses, Medical mg First dose Branch on [place] 02/22/22 at 1245, Last dose on Wed02/24/22 [...] 1 last Branch tablet modificati on) on [place] 02/22/22 at 1200, Until Discontinu ed, Routine acetaminoph No 650mg 650 mg, U nivers en 02-22 0803 Oral, ity of (TYLENOL) 14:35: 08:19 Q6HPRN, [place] tablet 650 20 :38 Starting Medic al mg on [place] Branch 02/22/22 at 0935, Until Wed02/25/22 at 0319, Routine, Pain (scale 1-3) ceFEPIme No 2000mg 2,000 mg, U nivers (MAXIPIME) 02-22 IV ity of 2,000 mg in 13:15: 14:10 Piggyback, [place] NaCl 0.9% 00 :00 ONCE, 1 Medical (NS) 50 mL dose, On Branc h MINI-BAG [place] 02/22/22 at 0815, Administer over 30 Minutes, 50 mL
Reas on for Anti-Infec tive: Documented Infection< br>Documen alden Infection Site: Respirator y
Du ration of Therapy: 10 days acetaminoph No 500mg 500 mg, U nivers en 02-22 Oral, ONCE ity of (TYLENOL) 10:30: 09:34 NOW, 1 [place] tablet 500 00 :00 dose, On Medic al mg [place] Branch 02/22/22 at 0530, Routine HYDROcodone 2021- [...] :00 dose, On Medi michel tablet [address] [facility] tablet 02/21/22 at 1815, Routine rosuvastati Yes 10mg 10 mg, Univ ers n (CRESTOR) 02-21 Oral, ity of tablet 10 14:00: DAILY, [place] mg 00 First dose Medical on [facility] Branch 02/21/22 at 0900, Until Discontinu ed, Routine aspirin Yes 81mg 81 mg, Univers chewable 02-21 Oral, ity of tablet 81 14:00: DAILY, [place] mg 00 First dose Medical on [facility] 02/21/22 at 0900, Until Discontinu ed, Routine spironolact 2021- No 25mg 25 mg, Uni vers one 02-21 Oral, ity of (ALDACTONE) 14:00: 03:59 DAILY, Compa as tablet 25 00 :42 First dose Medi michel mg on [facility] Branch 02/21/22 at 0900, Until Discontinu ed, Routine furosemide 2021- No 40mg 40 mg, Univ ers (LASIX) 02-21 Oral, ity of tablet 40 14:00: 03:28 DAILY, [place] mg 00 :19 First dose Medical on [facility] 02/21/22 at 0900, Until Discontinu ed, Routine predniSONE 2021- No 40mg 40 mg, Univ ers (DELTASONE) 02-21 Oral, ity of tablet 40 14:00: 13:46 DAILY, [place] mg 00 :51 First dose Medical on [facility] 02/21/22 at 0900, Until Discontinu ed, Routine HYDROcodone 2021- No 1{tbl} 1 tablet, Univers -acetaminop 02-21 Oral, ity of hen (NORCO 12:00: 11:09 ONCE, 1 Compa as 5) 5-325 mg 00 :00 dose, On Medi michel tablet 1 [facility] Branch tablet 02/21/22 at 0700, Routine albuterol Yes 2.5mg 2.5 mg, Univ ers (PROVENTIL) 02-21 Inhalation it y of 2.5 mg /3 03:00: , Q8H, [place] mL (0.083 00 First dose Medi michel %) on Wed Branch nebulizer 02/20/22 at solution 2200, 2.5 mg Until Discontinu ed, Routine QUEtiapine Yes 50mg 50 mg, Unive rs (SEROQUEL) 730 Oral, QHS, ity of tablet 50 02:30: [...] 2000mg 2,000 mg, U nivers (MAXIPIME) 02-21 0730 IV ity of 2,000 mg in 01:00: 02:37 [place], [place] NaCl 0.9% 00 :00 ONCE, 1 Medical (NS) 50 mL dose, On Branc h MINI-BAG Wed02/20/22 at 2000, Administer over 30 Minutes, 50 mL
Reas on for Anti-Infec tive: Documented Infection< br>Documen alden Infection Site: Abdominal< br>Duratio n of Therapy: 7 days acetylcyste 2021- No 4mL 800 mg (4 Univers ine 02-21 07-30 mL), ity of (MUCOMYST) 01:00: 22:40 Inhalation [...] at 2000, Until Discontinu ed, Routine glucagon Yes 1mg 1 mg, Univers (GLUCAGEN 02-21 Intramuscu ity of DIAGNOSTIC 00:51: lar, PRN, [place] KIT) 19 Starting Medical injection 1 on Wed Branch mg 02/20/22 at 1950, Until Discontinu ed, CT, Blood Glucose < [...] Pain (scale 1-3), Pain (scale 4-6) furosemide 0 Yes 40mg Take 1 Unive rs 40 mg 7-27 tablet by ity of tablet 00:00: mouth in [place] 00 the Medical morning. Branch furosemide 2021-0 Yes 40mg Take 1 Unive rs 40 mg 7-27 tablet by ity of tablet 00:00: mouth in [place] 00 the Medical morning. Branch furosemide 2021-0 Yes 40mg Take 1 Unive rs 40 mg 7-27 tablet by ity of tablet 00:00: mouth in [place] 00 the Medical morning. Branch furosemide 2022-0 Yes 40mg Take 1 Unive rs 40 mg 7-27 tablet by ity of tablet 00:00: mouth in [place] 00 the Medical morning. Branch furosemide 2022-0 Yes 40mg Take 1 Unive rs 40 mg 7-27 tablet by ity of tablet 00:00: mouth in [place] 00 the Medical morning. Branch furosemide 2022-0 Yes 40mg Take 1 Unive rs 40 mg 7-27 tablet by ity of tablet 00:00: mouth in [place] 00 the Medical morning. Branch furosemide 2022-0 Yes 40mg Take 1 Unive rs 40 mg 7-27 tablet by ity of tablet 00:00: mouth in [place] 00 the Medical morning. Branch furosemide 2022-0 Yes 40mg Take 1 Unive rs 40 mg 7-27 tablet by ity of tablet 00:00: mouth in [place] 00 the Medical morning. Branch furosemide 2022-0 Yes 40mg Take 1 Unive rs 40 mg 7-27 tablet by ity of tablet 00:00: mouth in [place] the Medical morning. Branch furosemide 2022-0 Yes 40mg Take 1 Unive rs 40 mg 7-27 tablet by ity of tablet 00:00: mouth in [place] 00 the Medical morning. Branch furosemide 2022-0 Yes 40mg Take 1 Unive rs 40 mg 7-27 tablet by ity of tablet 00:00: mouth in [place] 00 the Medical morning. Branch HYDROcodone 2-0 Yes 1{tbl} Take 1 Un alexia -acetaminop 7-26 tablet by ity of hen 10-325 18:10: mouth [place] mg tablet 37 every 8 Medical (eight) Branch hours as needed. cyclobenzap 2022-0 Yes 10mg Take 10 mg Univers rine 5 mg 7-26 by mouth 3 ity of tablet 18:10: (three) [place] 37 times Medical daily. Branch LORazepam 2-0 Yes .5mg Take 0.5 Univ ers 0.5 mg 7-26 mg by ity of tablet 18:10: mouth 2 [place] 37 (two) Medical times Branch daily as needed. ipratropium 2022-0 Yes 1{ampul 1 Ampule Univers -albuterol 7-26 [...] Medica l base)/3 mL needed for Bra nc nebulizer Wheezing. solution semaglutide Yes inject Univ ers (OZEMPIC) 7-26 under the ity o f 0.25 mg or 18:10: skin. [place] 0.5 mg(2 37 Medical mg/1.5 mL) Branch PnIj dulaglutide 0 Yes Trulicity U nivers (TRULICITY) - 3 mg/0.5 ity of 3 mg/0.5 mL 18:10: mL [place] PnIj 37 subcutaneo Medical us pen Branch injector metFORMIN 2021-0 Yes 750mg Take 750 Uni vers 500 mg 24 7-26 mg by ity of hr tablet 18:10: mouth [place] 37 daily with Medical breakfast. Branch spironolact 2021-0 Yes 25mg Take 25 mg Univers one 25 mg -26 by mouth ity of tablet 18:10: in the [place] [id number] morning Medical and 25 mg Branch at noon and 25 mg in the evening. pregabalin 2021-0 Yes 300mg 300 mg, Uni vers (LYRICA) - Oral, BID, ity o f capsule 300 14:30: First dose [place] mg 00 (after Medical last Branch modificati on) on Wed02/17/22 at 0930, Until Discontinu ed, Routine furosemide 2021-0 Yes 40mg 40 mg, Unive rs (LASIX) 02-17 Oral, ity of tablet 40 14:00: DAILY, [place] mg 00 First dose Medical (after Branch last modificati on) on Wed02/17/22 at 0900, Until Discontinu ed, Routine ceFEPIme 0 Yes 2000mg 2,000 mg, Un alexia (MAXIPIME) 02-17 IV ity of 2,000 mg in 03:30: Piggyback, [place] NaCl 0.9% 00 Q12H ABX, Medic al (NS) 50 mL First dose [facility] piggyback on Wed02/16/22 at 2230, Until Discontinu ed, Administer over 4 Hours, 50 mL
Reas on for Anti-Infec tive: Documented Infection< br>Documen alden Infection Site: Respirator y
Durat ion of Therapy: 7 days NaCl 0.9% 0 Yes 2000mg Infuse Univ ers (NS) SolP - 2,000 mg ity of 50 mL with 00:00: every 12 Compa as ceFEPIme 1 00 (twelve) Medic al gram SolR hours. Branch 2,000 mg NaCl 0.9% 2021-0 Yes 2000mg Infuse Univ ers (NS) SolP - 2,000 mg ity of 50 mL with 00:00: every 12 Compa as ceFEPIme 1 00 (twelve) Medic al gram SolR hours. Branch 2,000 mg NaCl 0.9% 2021- No 2000mg Infuse Uni vers (NS) [...] ity of 2,000 mg in 15:30: 15:30 [place], [place] NaCl 0.9% 00 :00 ONCE, 1 Medical (NS) 50 mL dose, On Branc h piggyback Wed02/16/22 at 1030, Administer over 30 Minutes, 50 mL
Reas on for Anti-Infec tive: Documented Infection< br>Documen alden Infection Site: Respirator y
Du ration of Therapy: 7 days lidocaine 2021- No 5mL 5 mL, Univer s 1% (PF) 02-16 Subcutaneo ity o f (XYLOCAINE) 14:45: 22:45 , ONCE, [place] injection 5 00 :00 1 dose, On Me dical mL Wed [place] 02/16/22 at 0945, Routine NaCl 0.9% Yes 10mL 10 mL, Univer s (NS) 02-16 Slow IV ity of injection 14:36: Push, PRN, [place] 10 mL 37 Starting Medical on Wed [place] 02/16/22 at 0936, Until Discontinu ed, Routine, line maintenanc e furosemide 2021- No 40mg 40 mg, Univ ers (LASIX) 02-16 Oral, BID, ity o f tablet 40 01:00: 12:21 First dose [place] mg 00 :21 on [place] Medical 02/15/22 at Branch 2000, Until Discontinu ed, Routine insulin Yes 24U 24 Units, Unive rs glargine 24 Subcutaneo ity o f (LANTUS 16:53: us, Q24H, [place] U-100) 00 First dose Medical injection (after Branch 24 Units last modificati on) on [place] 02/15/22 at 1153, Until Discontinu ed, Routine insulin Yes 5U 5 Units, Univer s lispro 02-14 Subcutaneo ity of (human) 22:00: us, TID [place] (HumaLOG 00 MEALS, Medical U-100) First dose Branch injection 5 on Sat Units 02/14/22 at 1700, Until Discontinu ed, Routine Sliding 2021- No Subcutaneo Uni vers Scale 02-14 07-25 us, Q4H, ity of Insulin - 21:00: [...] IV it y of 17:55: 22:35 Infusion, [place] 58 :45 TITRATE, Medical Starting Branch on Wed02/13/22 at 1255, Until Wed02/13/22 at 1735, Routine Sliding 2021- No Subcutaneo Uni vers Scale 02-13 , Q4H, ity of Insulin - 17:00: 17:59 First dose [place] lispro 00 :02 on Fri Medical (humaLOG) + 02/13/22 at Br anch Fsbg 1200, Testing Until Discontinu ed, Routine metoprolol Yes 25mg 25 mg, Unive rs succinate 02-13 Oral, ity of XL (TOPROL 14:00: DAILY, [place] XL) tablet 00 First dose Med ical 25 mg on Wed Branch 02/13/22 at 0900, Until Discontinu ed, Routine aspirin 0 Yes 81mg 81 mg, Univers chewable 02-13 [...] First dose [place] mg 00 on [facility] 02/12/22 at Branch 2100, Until Discontinu ed, Routine rosuvastati Yes 10mg 10 mg, Univ ers n (CRESTOR) 02-13 Oral, QHS, it y of tablet 10 02:00: First dose [place] mg 00 on [facility] 02/12/22 at Branch 2100, Until Discontinu ed, Routine pregabalin 2021- No 300mg 300 mg, Un alexia (LYRICA) 02-13 Oral, QHS, ity of capsule 300 02:00: 13:54 First dose [place] mg 00 :07 on [facility] 02/12/22 at Branch 2100, Until Discontinu ed, Routine furosemide 0 2021- No 20mg 20 mg, Univ ers (LASIX) 02-13 Slow IV ity of injection 01:00: 19:35 Push, [place] 20 mg 00 :20 Q12H, Medical First dose Branch on [place] 02/12/22 at 2000, Until Discontinu ed, Routine [...] IV Push, ity of (PF)) 21:36: Q6HPRN, [place] injection 4 19 Nausea and Me dical mg Vomiting Branch (N/V), Starting on [place] 02/12/22 at 1636
Do ses of ondansetro n 16 mg and above need to be administer ed via IV piggyback. For Dose >=24mg ECG monitoring is advisable.
ipratropium Yes 3mL 3 mL, Unive rs -albuteroL 02-12 Inhalation ity of (DUONEB) 19:00: , Q6H, [place] 0.5 mg-3 00 First dose Medic al mg(2.5 mg on [place] Branch base)/3 mL 02/12/22 at nebulizer 1400, solution 3 Until mL Discontinu ed, Routine piperacilli 2021- No 3.375g 3.375 g, Univers n-tazobacta 02-12 IV ity of m (ZOSYN) 15:30: 17:12 [place], [place] 3.375 g in 00 :00 ONCE, 1 Medica l NaCl 0.9% dose, On Branch (NS) 50 mL [place] MINI-BAG 02/12/22 at 1030, Administer over 30 [...] of 1,000 mg in 09:15: 14:35 [place], [place] NaCl 0.9% 00 :41 Q24H ABX, Medic al (NS) 50 mL First dose Bra [facility] MINI-BAG on [place] 02/12/22 at 0415, Until Discontinu ed, Administer over 30 Minutes, 50 mL
Reas on for Anti-Infec tive: Documented Infection< br>Documen alden Infection Site: Respirator y
Durat ion of Therapy: 7 days albuterol Yes 2.5mg 2.5 mg, Univ ers (PROVENTIL) 02-12 Inhalation it y of 2.5 mg /3 08:45: , Q4HPRN, Compa as mL (0.083 01 Starting Medica l %) on [facility] nebulizer 02/12/22 at solution 0345, 2.5 mg Until Discontinu ed, Routine, Shortness of Breath, Wheezing NaCl 0.45% 2021- No 1000mL Univ ers (1/2NS) 02-12 ity of 1000 mL + 08:15: 22:29 [place] KCL 20 mEq 00 :30 [facility] azithromyci 2021- No 500mg 500 mg, IV Univers n 02-12 Piggyback, ity of (ZITHROMAX) 08:09: 14:35 Q24H ABX, [place] 500 mg in 00 :41 First dose Medi michel NaCl 0.9% on [facility] Branch (NS) 250 mL 02/12/22 at VIAL-MATE [...] - SEE Branch INSTRUCTIO NS, Starting on [facility] 02/12/22 at 0259, Until [facility] 02/12/22 at 1729, CT, Blood glucose control furosemide 2021- No 40mg 40 mg, IV U nivers (LASIX) 02-12 Push, ity of injection 03:15: 04:17 ONCE, 1 [place] 40 mg 00 :00 dose, On [facility] Branch 02/11/22 at 2215, CT insulin 2021- No 10U 10 Units, [facility] ers regular 02-12 Slow IV ity of human 03:15: 04:13 Push, [place] (HUMULIN R) 00 :00 ONCE, 1 Medic al injection dose, On Branch 10 Units [facility] 02/11/22 at 2215, STAT iopamidol 2021- No [id number] 60mL 60 mL, Univers (ISOVUE 02-12 Intravenou ity o f 370-500 mL) 02:30: 02:30 s, ONCE, 1 [place] injection 00 :00 dose, On Medica l 60 mL Wed [place] 02/11/22 at 2145, Routine predniSONE 2021-0 Yes [id number] 50mg Take 1 Univers 50 mg 7-10 00 tablet by ity of tablet 00:00: mouth [place] 00 daily. Medical Branch aspirin 81 0 Yes [id number] 81mg Take 1 Univers mg chewable 7-10 00 tablet by ity of tablet 00:00: mouth [place] 00 daily with Medical breakfast. Branch predniSONE 0 Yes [id number] 50mg Take 1 Univers 50 mg 7-10 00 tablet by ity of tablet 00:00: mouth [place] 00 daily. Medical Branch aspirin 81 0 Yes [id number] 81mg Take 1 Univers mg chewable 7-10 00 tablet by ity of tablet 00:00: mouth [place] 00 daily with Medical breakfast. Branch aspirin 81 0 Yes [id number] 81mg Take 1 Univers mg chewable 7-10 00 tablet by ity of tablet 00:00: mouth [place] 00 daily with Medical breakfast. Branch aspirin 81 0 Yes [id number] 81mg Take 1 Univers mg chewable 7-10 00 tablet by ity of tablet 00:00: mouth [place] 00 daily with Medical breakfast. Branch aspirin 81 0 Yes [id number] 81mg Take 1 Univers mg chewable 7-10 00 tablet by ity of tablet 00:00: mouth [place] 00 daily with Medical breakfast. Branch aspirin 81 0 Yes [id number] 81mg Take 1 Univers mg chewable 7-10 00 tablet by ity of tablet 00:00: mouth [place] 00 daily with Medical breakfast. Branch aspirin 81 0 Yes [id number] 81mg Take 1 Univers mg chewable 7-10 00 tablet by ity of tablet 00:00: mouth [place] 00 daily with Medical breakfast. Branch aspirin 81 0 Yes [id number] 81mg Take 1 Univers mg chewable 7-10 00 tablet by ity of tablet 00:00: mouth [place] 00 daily with Medical breakfast. Branch aspirin 81 Yes [id number] 81mg Take 1 Univers mg chewable 7-10 00 tablet by ity of tablet 00:00: mouth [place] 00 daily with Medical breakfast. Branch aspirin 81 Yes [id number] 81mg Take 1 Univers mg chewable 7-10 00 tablet by ity of tablet 00:00: mouth [place] 00 daily with Medical breakfast. Branch aspirin 81 Yes [id number] 81mg Take 1 Univers mg chewable 7-10 00 tablet by ity of tablet 00:00: mouth [place] 00 daily with Medical breakfast. Branch aspirin 81 Yes [id number] 81mg Take 1 Univers mg chewable 7-10 00 tablet by ity of tablet 00:00: mouth [place] 00 daily with Medical breakfast. Branch aspirin 81 Yes [id number] 81mg Take 1 Univers mg chewable 7-10 00 tablet by ity of tablet 00:00: mouth [place] 00 daily with Medical breakfast. Branch predniSONE 2021- No [id number] 50mg Take 1 Univers 50 mg 02-01 tablet by ity of tablet 00:00: 00:00 mouth [place] 00 :00 daily. Medical Branch aspirin 81 2021- No [id number] 81mg Take 1 Univers mg chewable 02-01 tablet by it y of tablet 00:00: 00:00 mouth [place] 00 :00 daily with Medical breakfast. Branch predniSONE 2021- No [id number] 50mg Take 1 Univers 50 mg 02-01 [...] Yes 1{tbl} Take 1 Un alexia -acetaminop 01-31 tablet by ity of hen 10-325 13:56: mouth [place] mg tablet 12 every 8 Medical (eight) Branch hours as needed. cyclobenzap 2021-0 Yes 10mg Take 10 mg Univers rine 5 mg 7-09 by mouth 3 ity of tablet 13:56: (three) [place] 12 times Medical daily. Branch LORazepam 2021-0 Yes .5mg Take 0.5 Univ ers 0.5 mg 7-09 mg by ity of tablet 13:56: mouth 2 [place] 12 (two) Medical times Branch daily as needed. ipratropium 2021-0 Yes 1{ampul 1 Ampule Univers -albuterol 7-09 e} every 4 ity of 0.5 mg-3 13:56: (four) [place] mg(2.5 mg 12 hours as Medica l base)/3 mL needed for [facility] nebulizer Wheezing. solution semaglutide 2021-0 Yes inject Univ ers (OZEMPIC) 7-09 under the ity o f 0.25 mg or 13:56: skin. [place] 0.5 mg(2 12 Medical mg/1.5 mL) Branch PnIj dulaglutide 2021-0 Yes Trulicity U nivers (TRULICITY) 7-09 3 mg/0.5 ity of 3 mg/0.5 mL 13:56: mL [place] PnIj 12 subcutaneo Medical pen Branch injector metFORMIN 2021-0 Yes 750mg Take 750 Uni vers 500 mg 24 7-09 mg by ity of hr tablet 13:56: mouth [place] 12 daily with Medical breakfast. Branch HYDROcodone 2021-0 Yes 1{tbl} Take 1 Un alexia -acetaminop 7-09 tablet by ity of hen 10-325 13:56: mouth [place] mg tablet 12 every 8 Medical (eight) Branch hours as needed. cyclobenzap 2021-0 Yes 10mg Take 10 mg Univers rine 5 mg 7-09 by mouth 3 ity of tablet 13:56: (three) [place] 12 times Medical daily. Branch LORazepam 2021-0 Yes .5mg Take 0.5 Univ ers 0.5 mg 7-09 mg by ity of tablet 13:56: mouth 2 [place] 12 (two) Medical times Branch daily as needed. ipratropium 2021-0 Yes 1{ampul 1 Ampule Univers -albuterol 7-09 e} every 4 ity of 0.5 mg-3 13:56: (four) [place] mg(2.5 mg 12 hours as Medica l base)/3 mL needed for Bra [facility] nebulizer Wheezing. solution semaglutide Yes inject Univ ers (OZEMPIC) 01-31 under the ity o f 0.25 mg or 13:56: skin. [place] 0.5 mg(2 12 Medical mg/1.5 mL) Branch PnIj dulaglutide Yes Trulicity U nivers (TRULICITY) 01-31 3 mg/0.5 ity of 3 mg/0.5 mL 13:56: mL [place] PnIj 12 subcutaneo Medical pen Branch injector metFORMIN Yes 750mg Take 750 Uni vers 500 mg 24 01-31 mg by ity of hr tablet 13:56: mouth [place] 12 daily with Medical breakfast. Branch Potassium 2021- No Take by [facility] ers Gluconate 01-31 mouth ity of 595 mg (99 11:48: 00:00 weekly. Compa as mg) Tab 08 :00 Medical Branch spironolact 2021- No 25mg Take 25 mg Univers one 25 mg 01-31 by mouth 2 ity of tablet 11:48: 00:00 (two) [place] 08 :00 times Medical daily. Branch LORazepam [...] 2000, Until Discontinu ed, Routine metoprolol Yes [id number] 25mg Take 1 Univers succinate 01-31 00 tablet by ity o f XL 25 mg 24 00:00: mouth 2 Compa as hr tablet 00 (two) Medical times [place] daily. metoprolol Yes [id number] 25mg Take 1 Univers succinate 7-09 00 tablet by ity o f XL 25 mg 24 00:00: mouth 2 Compa as hr tablet 00 (two) Medical times Branch daily. metoprolol Yes [id number] 25mg Take 1 Univers succinate 01-31 tablet by ity o f XL 25 mg 24 00:00: mouth 2 [place] hr tablet 00 (two) Medical times Branch daily. metoprolol Yes [id number] 25mg Take 1 Univers succinate 01-31 tablet by ity o f XL 25 mg 24 00:00: mouth 2 [place] hr tablet 00 (two) Medical times Branch daily. furosemide 2021- No [id number] 40mg Take 1 [facility] 40 mg 01-31 tablet by ity of tablet 00:00: 04:59 mouth 2 [place] 00 :00 (two) Medical times Branch daily for 30 days. furosemide 2021- No [id number] 40mg Take 1 Univers 40 mg 01-31 tablet by ity of tablet 00:00: 04:59 mouth 2 [place] 00 :00 (two) Medical times Branch daily for 30 days. metoprolol 2021- No [id number] 25mg Take 1 Univers succinate 01-31 00 tablet by ity of XL 25 mg 24 00:00: 00:00 mouth 2 [place] hr tablet 00 :00 (two) Medical times Branch daily. furosemide 2021- No [id number] 40mg Take 1 [facility] 40 mg 01-31 00 tablet by ity of tablet 00:00: 00:00 mouth 2 [place] 00 :00 (two) Medical times Branch daily for 30 days. metoprolol 2021- No [id number] 25mg Take 1 [facility] succinate 01-31 00 tablet by ity of XL 25 mg 24 00:00: 00:00 mouth 2 [place] hr tablet 00 :00 (two) Medical times Branch daily for 30 days. acetaminoph Yes 650mg 650 mg, Un alexia en 01-30 Oral, ity of (TYLENOL) 19:27: Q6HPRN, [place] tablet 650 59 Starting Medic al mg on Fri Branch 01/30/22 at 1427, Until Discontinu ed, Routine, Pain (scale 1-3), Temp > 38.5 C methylPREDN 2021- No 40mg 40 mg, Uni vers ISolone sod 01-29 Intravenou i ty of succ 14:00: 18:37 s, DAILY, [place] (SOLU-MEDRO 00 :50 First dose Me dical L (PF)) on [place] Branch injection 01/29/22 at 40 mg 0900, Until Discontinu ed, 1 mL ceFEPIme 2021- No 2000mg 2,000 mg, U nivers (MAXIPIME) 01-29 IV ity of 2,000 mg in 07:15: 22:11 [place], [place] NaCl 0.9% 00 :39 Q8H ABX, Medica l (NS) 50 mL First dose Bra [facility] MINI-BAG on [place] 01/29/22 at 0215, Until [...] ity of 2,000 mg in 23:45: 01:18 [place], [place] NaCl 0.9% 00 :00 ONCE, 1 Medical (NS) 50 mL dose, On [facility] h MINI-BAG 01/28/22 at 1845, Administer over 30 Minutes, 50 mL
R [place] for Anti-Infec tive: Documented Infection< br>Documen alden Infection Site: Respirator y
Du ration of Therapy: 7 days propofoL IV 2021-0 Yes 5ug/kg/ 5-50 Uni vers infusion 7-06 min mcg/kg/min ity o f 22:46: ?112.5 kg [place] 21 (3.375-33. Medical 75 mL/hr, Branch rounded [...] 12 hours.
albuterol Yes 2.5mg 2.5 mg, [facility] ers (PROVENTIL) 01-28 Inhalation it y [...] Routine LORazepam 2021- No .5mg 0.5 mg, [facility] ers (ATIVAN) 01-28 07-06 Slow IV ity of injection 20:30: 19:28 Push, [place] 0.5 mg 00 :00 ONCE, 1 Medical dose, On Branch Wed01/28/22 at 1530, Routine
Is the medication being used for status epilepticu s? No furosemide 2021- No 5mg/h 5 mg/hr Un alexia (LASIX) 200 01-28-08 (2.5 ity of mg in NaCl 19:00: 18:37 mL/hr), IV [place] 0.9% (NS) 00 :50 Infusion, Medic al 100 mL CONTINUOUS Branch infusion , Starting on Wed01/28/22 at 1400
Do Not Refrigerat e.
sulfur 2021- No [id number] 5mL 5 mL, Univ ers hexafluorid 01-28 07-06 Intravenou i ty of e microsphr 15:45: 15:45 s, ONCE, 1 [place] (LUMASON) 00 :00 dose, On Medica l injection 5 Wed01/28/22 Br anch mL at 1045, Routine
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 Restricted medication : BRYANTSTELLA enoxaparin 0 Yes 40mg 40 mg, Unive [...] at 0600, Until Discontinu ed, Routine pravastatin Yes 20mg 20 mg, Univ ers (PRAVACHOL) [...] First dose [place] mg 00 on Wed [facility] 01/28/22 at Branch 0215, Until Discontinu ed, [...] 34 Starting Medi michel mg on Wed [place] 01/28/22 at 0204, Until Discontinu ed, Routine, [...] Until Discontinu ed, Routine, hypoglycem ia LORazepam 0 Yes .5mg 0.5 mg, Unive [...] First dose [place] mg 00 on Wed01/28/22 at Branch 0200, Until Discontinu ed, Routine metoprolol Yes 25mg 25 mg, Unive rs succinate 01-28 Oral, BID, ity of XL (TOPROL 07:00: First dose [place] XL) tablet 00 on Wed Medical 25 mg 01/28/22 at Branch 0200, Until Discontinu ed, Routine ipratropium 2021- No 3mL 3 mL, Univ ers -albuteroL 01-28 07-06 Inhalation it y of (DUONEB) 07:00: 20:55 , QID, [place] 0.5 mg-3 00 :07 First dose Medic al mg(2.5 mg on Wed base)/3 mL 01/28/22 at nebulizer 0200, solution 3 Until mL Discontinu ed, Routine cyclobenzap 0 Yes 10mg 10 mg, Univ ers rine 01-28 Oral, ity of (FLEXERIL) 06:59: TIDPRN, [place] tablet 10 11 Starting Medica l mg on Wed [place] 01/28/22 at 0159, Until Discontinu ed, Routine, Muscle Spasms HYDROcodone 2021-0 Yes 1{tbl} 1 tablet, Univers -acetaminop 01-28 Oral, ity of hen (NORCO) 06:57: Q6HPRN, Compa as 10-325 mg 48 Starting Medica l tablet 1 on Wed Branch tablet 01/28/22 at 0157, Until Discontinu ed, Routine, Pain (scale 4-6) furosemide 2021- No 40mg 40 mg, IV U nivers (LASIX) 01-28 Push, ity of injection 03:15: 03:17 ONCE, 1 [place] 40 mg 00 :00 dose, On Medical Wed01/27/22 Branch at 2215, CT morpHINE (4 2021- No 4mg 4 mg, Slow Univers mg/mL) 01-28 IV Push, ity of injection 4 02:30: 02:25 ONCE, 1 [place] mg 00 :00 dose, On Wed01/27/22 Branch at 2130, STAT ondansetron 2021- [...] needed for Bra nch nebulizer Wheezing. solution spironolact Yes 25mg Take [...] Medical Mon Branch 01/12/22 at 1915, CT cyclobenzap Yes 10mg Take 10 mg Univers rine 5 mg 6-20 by mouth 3 ity of tablet 14:06: (three) [place] 48 times Medical daily. Branch LORazepam Yes .5mg Take 0.5 Univ ers 0.5 mg 6-20 mg by ity of tablet 14:06: mouth 2 [place] 48 (two) Medical times Branch daily as needed. Potassium Yes Take by Unive rs Gluconate 6-20 mouth ity of 595 mg (99 14:06: weekly. [place] mg) Tab 48 Medical Branch ipratropium Yes 1{ampul 1 Ampule Univers -albuterol 6-20 e} every 4 ity of 0.5 mg-3 14:06: (four) [place] mg(2.5 mg 48 hours as Medica l base)/3 mL needed for Bra [facility] nebulizer Wheezing. solution spironolact Yes 25mg Take [...] Medica l base)/3 mL needed for Bra nc nebulizer Wheezing. solution spironolact Yes 25mg Take [...] Medica l base)/3 mL needed for Bra nc nebulizer Wheezing. solution spironolact Yes 25mg Take [...] (eight) Branch hours as needed. ALPRAZolam Yes [id number] .5mg Take 1 Univers 0.5 mg 6-20 tablet by ity of tablet 00:00: mouth 3 [place] 00 (three) Medical times Branch daily. ALPRAZolam Yes [id number] .5mg Take 1 Univers 0.5 mg 6-20 tablet by ity of tablet 00:00: mouth 3 [place] 00 (three) Medical times Branch daily. ALPRAZolam Yes [id number] .5mg Take 1 Univers 0.5 mg 6-20 tablet by ity of tablet 00:00: mouth 3 [place] 00 (three) Medical times Branch daily. ALPRAZolam 0 Yes [id number] .5mg Take 1 Univers 0.5 mg 6-20 tablet by ity of tablet 00:00: mouth 3 [place] 00 (three) Medical times Branch daily. ALPRAZolam 2021- No [id number] .5mg Take 1 Univers 0.5 mg 6-20 07-09 tablet by ity of tablet 00:00: 00:00 mouth 3 [place] 00 :00 (three) Medical times Branch daily. ALPRAZolam 0 Yes .5mg 0.5 mg, Univ ers (XANAX) 01-11 Oral, TID, ity of tablet 0.5 01:30: First dose [place] mg 00 (after Medical last Branch modificati on) on [facility] 01/10/22 at 2030, Until Discontinu ed, Routine ALPRAZolam 0 2021- No .5mg 0.5 mg, Uni vers (XANAX) 01-1019 Oral, TID, ity o f tablet 0.5 21:30: 01:15 First dose [place] mg 00 :25 on [facility] Medical 01/10/22 at Branch 1630, Until Discontinu ed, Routine acetaminoph Yes 650mg 650 mg, Un alexia en 01-09 Oral, ity of (TYLENOL) 22:42: Q6HPRN, [place] tablet 650 06 Starting Medic al mg on Wed Branch 01/09/22 at 1742, Until Discontinu ed, Routine, Pain (scale 1-3), Pain (scale 4-6) FENTanyl PF 0 2021- No 50ug 50 mcg, Un alexia (SUBLIMAZE 01-09 Slow IV ity o f (PF)) 14:15: 18:52 [place], [place] injection 00 :00 ONCE, 1 Medical 50 mcg dose, On Branch Wed01/09/22 at 0915, Routine propofoL IV Yes 5ug/kg/ 5-50 Uni vers infusion 01-09 min mcg/kg/min ity o f 14:02: ?104.3 kg [place] 51 (3.129-31. Medical 29 mL/hr, Branch rounded to 3.13-31.29 mL/hr), IV Infusion, at 3.13-31.29 mL/hr, TITRATE, Starting on Wed01/09/22 at 0902, Until Discontinu ed, Sedation-R ASS score (-2 to -3), Routine QUEtiapine 0 Yes 50mg 50 mg, Unive rs (SEROQUEL) 01-09 Oral, BID, ity of tablet 50 01:00: First dose [place] mg 00 (after Medical last Branch modificati on) on [place] 01/08/22 at 2000, Until Discontinu ed, Routine QUEtiapine 2021- No 25mg 25 mg, [facility] ers (SEROQUEL) 01-0816 Oral, ity of tablet 25 13:54: 14:00 ONCE, 1 [place] mg 00 :00 dose, On Medical [place] Branch 01/08/22 at 0900, Routine acetylcyste 0 Yes 4mL 800 mg (4 U nivers ine 6-15 mL), ity of (MUCOMYST) 23:00: Inhalation [place] 200 mg/mL 00 , Q6H, Medical (20 %) First dose Branch solution on Wed 800 mg 01/07/22 at 1800, Until Discontinu ed, Routine FENTanyl PF No 100ug 100 mcg, Univers (SUBLIMAZE 01-07 [...] Agitation furosemide 2021- No 40mg 40 mg, [facility] ers (LASIX) 01-07 Slow IV ity of injection 17:00: 10:59 [place], Q6H, [place] 40 mg 00 :00 3 doses, Medical First dose Branch (after last modificati on) on Wed01/07/22 at 1200, Last dose on [place] 01/08/22 at 0000, Routine propofoL IV 2021-0 Yes 5ug/kg/ 5-50 Uni vers infusion 6-14 min mcg/kg/min ity o f 21:35: ?104.3 kg [place] 37 (3.129-31. Medical 29 mL/hr, Branch rounded [...] of 1,000 mg in 19:00: 22:16 [place], [place] NaCl 0.9% 00 :00 Q8H ABX, 4 [...] 01-06 Oral, ity of sodium 18:45: DAILY, [place] (SENOKOT-S) 00 First dose Me dical 8.6-50 [...] 2021- No 5ug/kg/ 5-50 Un alexia infusion 01-06 min mcg/kg/min ity of 01:12: 18:02 ?104.3 kg [place] 34 :29 (3.129-31. Medical 29 mL/hr, Branch [...] doses, Medical mEq/100 mL First dose Bra [facility] RTU IVPB 20 on Wed mEq 01/04/22 at 1000, Last dose on Wed01/04/22 at 1200, 100 mL insulin 2021- No 10U 10 Units, [facility] ers glargine 01-04 Subcutaneo ity of (LANTUS 14:00: 15:09 us, DAILY, [place] U-100) 00 :45 First dose Medical injection (after Branch 10 Units last modificati on) on Wed01/04/22 at 0900, Until Discontinu ed, Routine metoprolol No 5mg 5 mg, Slow Univers (LOPRESSOR) 01-04 IV Push, ity of injection 5 13:45: 17:13 BID, First [place] mg 00 :45 dose on [facility] Branch 01/04/22 at 0845, Until Discontinu ed, Routine QUEtiapine No 25mg 25 mg, Univ ers (SEROQUEL) 01-04 Oral, BID, it y of tablet 25 13:45: 13:55 First dose [place] mg 00 :32 (after Medical last Branch modificati on) on [place] 01/04/22 at 0845, Until Discontinu ed, Routine iopamidol No [id number] 100mL 100 mL, Univers (ISOVUE 01-04 Intravenou ity o f 370-500 mL) 10:15: 08:55 s, ONCE, 1 [place] injection 00 :00 dose, On Medica l 100 mL [facility] 01/04/22 at 0515, Routine propofoL IV No 5ug/kg/ 5-50 Un alexia infusion 01-03 min mcg/kg/min ity of 21:04: 21:03 ?104.3 kg [place] 20 :20 (3.129-31. Medical 29 mL/hr, Branch rounded to 3.13-31.29 mL/hr), IV Infusion, TITRATE, Sedation-R ASS score (-1 to -2), Starting on [facility] 01/03/22 at 1604, For 2 [...] ed, Routine insulin No 10U 10 Units, Univ ers glargine 01-03 Subcutaneo ity [...] HYDROmorpho 2021- No .5mg 0.5 mg, Un [place] ne 01-03 Slow IV ity of (DILAUDID) [...] No 5ug/kg/ 5-50 Un alexia infusion 01-02 min mcg/kg/min ity of 22:07: 21:04 ?104.3 kg [place] 53 :48 (3.129-31. Medical 29 mL/hr, Branch [...] On Branch Wed01/02/22 at 1430, Routine meropenem No 1000mg 1,000 mg, Univers (MERREM) 01-0214 IV ity of 1,000 mg in 19:00: 15:44 [place], [place] NaCl 0.9% 00 :06 Q8H ABX, Medica l (NS) 50 mL First dose Bra nch MINI-BAG on Wed01/02/22 at 1400, Until Discontinu ed, Administer over 3 Hours, 50 mL
Rest ricted use approved by: CLC4C
R [place] for Anti-Infec tive: Empiric Therapy for Suspected Infection< br>Empiric Therapy Site: Respirator y
Durat ion of therapy: 72 hours Sliding Yes Subcutaneo [facility] ers Scale 6-10 us, Q6H, ity of Insulin-Reg 17:00: First dose [place] ular + Fsbg 00 on Wed Medica [...] ity of bolus 14:10: PRN - SEE [place] infusion 46 INSTRUCTIO Medic al 250 mL [...] Inhalation ity of (DUONEB) 13:00: , Q4H, [place] 0.5 mg-3 00 First dose Medic al [...] No 20U 20 Units, Univ ers glargine 01-02 Subcutaneo ity of (LANTUS 13:00: 14:11 us, BID, [place] U-100) 00 :23 First dose Medical injection [...] at 0730, Until Discontinu ed, Routine vancomycin No 15mg/kg 1,500 mg Univers 1500 mg in 01-02 (rounded ity of NS 500 mL 12:00: 14:27 from [place] IV 00 :44 1,564.5 mg Medical [place] [...] ity of 1 mEq/mL 11:45: 09:45 [place], [place] (8.4 %) 00 :00 ONCE, 1 Medical injection dose, On 100 mEq Wed01/02/22 at 0645, Routine meropenem 2021- No 1000mg 1,000 mg, Univers (MERREM) 01-02 IV ity of 1,000 mg in 11:15: 12:44 [place], [place] NaCl 0.9% 00 :00 ONCE, 1 Medical (NS) 50 mL dose, On Branc h MINI-BAG Wed01/02/22 at 0615, Administer over 30 Minutes, 50 mL
Rest ricted use approved by: CLC
R ky for Anti-Infec tive: Empiric Therapy for Suspected Infection< br>Empiric Therapy Site: Respirator y
Durat ion of therapy: 72 hours dexMEDEtomi 2021- No .2ug/kg 0.2-1.5 Univers dine 200 01-02 0610 /h mcg/kg/hr ity o f mcg in [...]
Durat ion of Therapy: 7 days ondansetron No 4mg 4 mg, Slow Univers [...] [place] mg 00 :00 dose, On Medical [facility] Branch 12/09/21 at 0045, STAT levalbutero 2021- No 1.25mg 1.25 mg, Univers l (XOPENEX) 12-09 Inhalation i ty of nebulizer 05:00: 04:22 , ONCE, 1 [place] solution 00 :00 dose, On Medical 1.25 mg [facility] 12/09/21 at 0000, Routine predniSONE 2021- No [id number] 40mg Take 2 Univers 20 mg 3-02 03-06 tablets by ity of tablet 00:00: 05:59 mouth [place] 00 :00 daily for Medical 3 days. Branch predniSONE 2021- No [id number] 40mg Take 2 Univers 20 mg 3-02 [...] Medica l base)/3 mL needed for Bra [facility] nebulizer Wheezing. solution spironolact 0 Yes 25mg [...] Take 10 mg Univers rine 5 mg -01 by mouth 3 ity of tablet 15:03: [...] Medica l base)/3 mL needed for Bra [facility] nebulizer Wheezing. solution spironolact Yes 25mg Take [...] Medica l base)/3 mL needed for Bra [facility] nebulizer Wheezing. solution spironolact Yes 25mg Take [...] 49 subcutaneo Medical pen Branch injector metFORMIN Yes 750mg Take 750 Uni vers 500 mg 24 3-01 mg by ity of hr tablet 15:03: mouth [place] 49 daily with Medical breakfast. [place] polyethylen Yes 17g 17 g, Unive rs e glycol 09-23 Oral, BID, ity o f 3350 powder 14:15: First dose [place] 17 g 00 on [facility] Medical 09/23/21 at Branch 0815, Until Discontinu ed, Routine proCHLORper 2021- No 5mg 5 mg, IV U nivers azine 09-23 [place], ity of (COMPAZINE) 13:00: 12:33 ONCE, 1 [place] 5 mg in 00 :00 dose, On Medical NaCl 0.9% [facility] 09/23/21 Bran ch (NS) at 0700, [place] 50 mL ondansetron 2021- No 8mg Take 8 mg Univers 8 mg tablet 09-23 by mouth ity of 12:53: 00:00 every 8 [place] 19 :00 (eight) Medical hours as Branch needed. ondansetron 2021- No 4mg 4 mg, Slow Univers (ZOFRAN 09-23 IV Push, ity of (PF)) 10:00: 09:12 ONCE, 1 [place] injection 4 00 :00 dose, On Medi michel mg [facility] 09/23/21 Branch at 0400, Routine ondansetron Yes 4mg 4 mg, Slow Univers (ZOFRAN 09-23 IV Push, ity of (PF)) 04:25: Q6HPRN, [place] injection 4 51 Starting Medi michel mg on Wed [place] 09/22/21 at 2225, Until Discontinu ed, Routine, Nausea and Vomiting (N/V) insulin Yes 60U 60 Units, Unive rs glargine 09-23 Subcutaneo ity o f (LANTUS 03:00: us, QHS, [place] U-100) 00 First dose Medical injection on Wed [place] 60 Units 09/22/21 at 2100, Until Discontinu ed, Routine Sliding Yes Subcutaneo Univ ers Scale 3 us, Q4H, ity of Insulin - 02:45: First dose [place] Lispro 00 (after Medical (HumaLOG) + last Branch Fsbg modificati Testing on) on Wed09/22/21 at 2045, Until Discontinu ed, Routine azithromyci 2021- No [id number] 250mg Take 1 Univers n 09-23-06 tablet by ity of (ZITHROMAX 00:00: 05:59 mouth [place] Z-ULYSSES) 250 00 :00 daily for Medi michel mg tablet 4 days. Branch azithromyci 2021- No [id number] 250mg Take 1 Univers n 09-23-06 tablet by ity of (ZITHROMAX 00:00: 05:59 mouth [place] Z-ULYSSES) 250 00 :00 daily for Medi michel mg tablet 4 days. Branch cyclobenzap Yes 5mg 5 mg, Unive rs [...] ity of bolus 20:39: PRN - SEE [place] infusion 11 INSTRUCTIO Medic al 250 mL [...] or has mental changes. sulfur 2021- No [id number] 5mL 5 mL, Univ ers hexafluorid 09-22 Intravenou i ty of e microsphr 18:45: 19:00 s, ONCE, 1 [place] (LUMASON) 00 :00 dose, On Medica l injection 5 Wed [place] mL 09/22/21 at 1300, Routine
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 Restricted medication : MARY GLORIA HYDROcodone Yes 1{tbl} 1 tablet, Univers -acetaminop 09-22 Oral, ity of hen (NORCO) 16:26: Q8HPRN, Compa as 10-325 mg 26 Starting Medica l tablet 1 on Wed [place] tablet 09/22/21 at 1026, Until Discontinu ed, [...] of 2.5 mg /3 14:00: , Q4H, [place] mL (0.083 00 First dose Medi michel %) on Mon Branch nebulizer 09/22/21 at solution 0800, 2.5 mg Until Discontinu ed, Routine heparin Yes 5000U 5,000 Univers (porcine) 09-22 Units, ity of injection 14:00: Subcutaneo [place] 5,000 Units 00 us, Q12H, Med ical First dose Branch on [facility] 09/22/21 at 0800, Until Discontinu ed, Routine Sliding 2021- No Subcutaneo Uni vers Scale 09-22 us, AC+HS, ity of Insulin-Reg 13:30: 19:17 First dose [place] ular + Fsbg 00 :38 on [facility] Medica l Testing 09/22/21 at Branch [...] IV ity of (D50W) 11:14: Push, PRN, [place] injection 28 Starting Medica l 25 mL on [facility] Branch 09/22/21 at 0514, Until Discontinu ed, CT, Blood Glucose < or = 70 mg/dL and patient is unable to swallow or has mental status changes. albuterol No 2.5mg 2.5 mg, Uni vers (PROVENTIL) 09-22 Inhalation i ty of 2.5 mg /3 07:45: 07:15 , ONCE, 1 [place] mL (0.083 00 :00 dose, On Medica l %) [facility] nebulizer 09/22/21 at solution 0145, CT 2.5 mg furosemide 2021- No 40mg 40 mg, IV U nivers (LASIX) 09-22 Push, ity of injection 07:30: 06:32 ONCE, 1 [place] 40 mg 00 :00 dose, On Medical Mon Branch 09/22/21 at 0130, CT methylpredn 2021- [...] 00 :00 dose, On Medica l %) [facility] nebulizer 09/22/21 at solution 0130, CT 2.5 [...] 57 subcutaneo Medical us pen Branch injector LORazepam 2020-07 Yes [id number] .5mg Take 1 Un alexia 0.5 mg 2-02 tablet by ity of tablet 00:00: mouth 3 [place] 00 (three) Medical times Branch daily as needed for Nausea and Vomiting (N/V). LORazepam 2020-07 Yes [id number] .5mg Take 1 Un alexia 0.5 mg 2-02 tablet by ity of tablet 00:00: mouth 3 [place] 00 (three) Medical times Branch daily as needed for Nausea and Vomiting (N/V). LORazepam 2020-07- No [id number] .5mg Take 1 U nivers 0.5 mg 08-27 tablet by ity of tablet 00:00: 00:00 mouth 3 [place] 00 :00 (three) Medical times [place] daily as needed for Nausea and Vomiting [...] nch nebulizer Wheezing. solution nystatin 2018-07 Yes [id number] Apply to Un alexia 100,000 1-06 area(s) 2 ity of unit/gram 00:00: (two) [place] cream 00 times Medical daily. Branch nystatin 2018-07 Yes [id number] Apply to Un alexia 100,000 1-06 area(s) 2 ity of unit/gram 00:00: (two) [place] cream 00 times Medical daily. Branch nystatin 2018-07- No [id number] Apply to U nivers 100,000 1-06 03-01 area(s) 2 ity of unit/gram 00:00: 00:00 (two) [place] [facility] 00 :00 times Medical daily. Branch rosuvastati 2018-07 Yes TK 1 T PO U nivers n 10 mg 0-28 QD ity of tablet 00:00: [place] Medical Branch rosuvastati 2018-07 Yes TK 1 T PO U nivers n 10 mg 0-28 QD ity of tablet 00:00: [place] Medical Branch rosuvastati 2018-07 Yes TK 1 T PO U nivers n 10 mg 0-28 QD ity of tablet 00:00: [place] [address] Medical Branch rosuvastati 2018-07 Yes TK 1 T PO U nivers n 10 mg 0-28 QD ity of tablet 00:00: [address] Branch rosuvastati 2018-07 Yes TK 1 T PO U nivers n 10 mg 0-28 QD ity of tablet 00:00: [place] [address] Medical Branch rosuvastati 2018-07 Yes TK 1 T PO U nivers n 10 mg 0-28 QD ity of tablet 00:00: [place] [facility] Branch rosuvastati 2018-07 Yes TK 1 T PO U nivers n 10 mg 0-28 QD ity of tablet 00:00: [address] Branch rosuvastati 2018-07 Yes TK 1 T PO U nivers n 10 mg 0-28 QD ity of tablet 00:00: [place] [facility] Branch rosuvastati 2018-07 Yes TK 1 T PO U nivers n 10 mg 0-28 QD ity of tablet 00:00: [address] Branch rosuvastati 2018-07 Yes TK 1 T PO U nivers n 10 mg 0-28 QD ity of tablet 00:00: [address] Branch rosuvastati 2018-07 Yes TK 1 T PO U nivers n 10 mg 0-28 QD ity of tablet 00:00: [place] [address] Medical Branch rosuvastati 2018-07 Yes TK 1 T PO U nivers n 10 mg 0-28 QD ity of tablet 00:00: [address] Branch rosuvastati 2018-07 Yes TK 1 T PO U nivers n 10 mg 0-28 QD ity of tablet 00:00: [address] Branch rosuvastati 2018-07 Yes TK 1 T PO U nivers n 10 mg 0-28 QD ity of tablet 00:00: [place] [facility] rosuvastati 2018-07 Yes TK 1 T PO U nivers n 10 mg 0-28 QD ity of tablet 00:00: [place] [facility] rosuvastati 2018-07 Yes TK 1 T PO U nivers n 10 mg 0-28 QD ity of tablet 00:00: [place] [facility] rosuvastati 2018-07 Yes TK 1 T PO U nivers n 10 mg 0-28 QD ity of tablet 00:00: [place] [facility] rosuvastati 2018-07 Yes TK 1 T PO U nivers n 10 mg 0-28 QD ity of tablet 00:00: [place] [facility] rosuvastati 2018-07 Yes TK 1 T PO U nivers n 10 mg 0-28 QD ity of tablet 00:00: [place] [facility] rosuvastati 2018-07 Yes TK 1 T PO U nivers n 10 mg 0-28 QD ity of tablet 00:00: [place] [facility] rosuvastati 2018-07 Yes TK 1 T PO U nivers n 10 mg 0-28 QD ity of tablet 00:00: [place] [facility] rosuvastati 2018-07 Yes TK 1 T PO U nivers n 10 mg 0-28 QD ity of tablet 00:00: [place] [facility] ofloxacin 2018-07 Yes INSTIL 2 Univ ers 0.3 % 0-21 GTS IN OS ity of ophthalmic 00:00: QID [place] solution Medical Branch ofloxacin 2018-07 Yes INSTIL 2 [...] 20 mg 0-09 ity of tablet 00:00: [place] [facility] Branch furosemide 2018-07 Yes Univers 20 mg 0-09 ity of tablet 00:00: [place] [facility] furosemide 2018-07 Yes TK 1 T PO Un aleixa 40 mg 0-09 QAM ity of tablet 00:00: [place] [facility] Branch furosemide 2018-07 Yes TK 1 T PO Un alexia 40 mg 0-09 QAM ity of tablet 00:00: [place] [facility] Branch furosemide 2018-07 Yes Univers 20 mg 0-09 ity of tablet 00:00: [place] [facility] furosemide 2018-07 Yes Univers 20 mg 0-09 ity of tablet 00:00: [place] [facility] furosemide 2018-07 Yes Univers 20 mg 0-09 ity of tablet 00:00: [place] [facility] furosemide 2018-07 Yes Univers 20 mg 0-09 ity of tablet 00:00: [place] [facility] furosemide 2018-07 Yes Univers 20 mg 0-09 ity of tablet 00:00: [place] [facility] Branch furosemide 2018-07- No Univer s 20 mg 0-09 07-09 ity of tablet 00:00: 00:00 [place] 00 :00 Medical Branch HYDROcodone Yes 1{tbl} Take 1 Un alexia -acetaminop 8-07 tablet by ity of hen 10-325 13:18: mouth [place] mg tablet 36 every 8 Medical (eight) Branch hours as needed. cyclobenzap Yes 10mg Take 10 mg Univers rine 5 mg 8-07 by mouth 3 ity of tablet 13:18: (three) [place] 36 times Medical daily. Branch LORazepam 2019-0 Yes .5mg Take 0.5 Univ ers 0.5 mg 8-07 mg by ity of tablet 13:18: mouth 2 [place] 36 (two) Medical times Branch daily as needed. Potassium 2019-0 Yes Take by Unive rs Gluconate 8-07 mouth ity of 595 mg (99 13:18: weekly. [place] mg) Tab 36 Medical Branch ondansetron 2019-0 Yes 8mg Take 8 mg U nivers 8 mg tablet 8-07 by mouth ity of 13:18: every 8 [place] 36 (eight) Medical hours as Branch needed. semaglutide 2019- Yes inject Univ ers (OZEMPIC) 8-07 under the ity o f 0.25 mg or 13:18: skin. [place] 0.5 mg(2 36 Medical mg/1.5 mL) Branch PnIj HYDROcodone 2018- Yes 1{tbl} Take 1 Un alexia -acetaminop 8-07 tablet by ity of hen 10-325 13:18: mouth [place] mg tablet 36 every 8 Medical (eight) Branch hours as needed. cyclobenzap 2019- Yes 10mg Take 10 mg Univers rine 5 mg 8-07 by mouth 3 ity of tablet 13:18: (three) [place] 36 times Medical daily. Branch LORazepam 2018- Yes .5mg Take 0.5 Univ ers 0.5 mg 8-07 mg by ity of tablet 13:18: mouth 2 [place] 36 (two) Medical times Branch daily as needed. Potassium 2018- Yes Take by Unive rs Gluconate 8-07 mouth ity of 595 mg (99 13:18: [place]. [place] mg[place] Tab 36 [facility] Branch ondansetron 2019-0 Yes 8mg Take 8 mg U nivers 8 mg tablet 8-07 by mouth ity of 13:18: every 8 [place] 36 (eight) Medical hours as Branch needed. semaglutide 2019-0 Yes inject Univ ers (OZEMPIC) 8-07 under the ity o f 0.25 mg or 13:18: skin. [place] 0.5 mg(2 36 Medical mg/1.5 mL) Branch PnIj fluconazole 2019-0 Yes [id number] 100mg Take 1 Univers 100 mg 3-26 tablet by ity of tablet 00:00: mouth [place] 00 daily. [facility] Branch fluconazole 2019-0 Yes [id number] 100mg Take 1 Univers 100 mg 3-26 tablet by ity of tablet 00:00: mouth [place] 00 daily. [facility] Branch fluconazole 2019-0 Yes [id number] 100mg Take 1 Univers 100 mg 3-26 tablet by ity of tablet 00:00: mouth [place] 00 daily. [facility] Branch fluconazole 2019-0 Yes [id number] 100mg Take 1 Univers 100 mg 3-26 tablet by ity of tablet 00:00: mouth [place] 00 daily. [facility] Branch fluconazole 2019-0 Yes [id number] 100mg Take 1 Univers 100 mg 3-26 tablet by ity of tablet 00:00: mouth [place] 00 daily. [facility] Branch fluconazole 2019-0 Yes [id number] 100mg Take 1 Univers 100 mg 3-26 tablet by ity of tablet 00:00: mouth [place] 00 daily. [facility] fluconazole 2018- Yes [id number] 100mg Take 1 Univers 100 mg 3-26 tablet by ity of tablet 00:00: mouth [place] 00 daily. [facility] Branch fluconazole 2019- Yes [id number] 100mg Take 1 Univers 100 mg 3-26 tablet by ity of tablet 00:00: mouth [place] 00 daily. [facility] Branch fluconazole 2019- Yes [id number] 100mg Take 1 Univers 100 mg 3-26 tablet by ity of tablet 00:00: mouth [place] 00 daily. [facility] Branch fluconazole 2018-2021- No [id number] 100mg Take 1 Univers 100 mg 3-26 [...] :00 AREA TWICE Medical DAILY Branch Clotrimazol Yes 1mL 1 mL 3 Univ ers [...] 3-02 ity of iron- 1 mg 00:00: [facility] Medical Branch HEMOCYTE-PL 2017-0 Yes Univer s US 106 mg 3-02 ity of iron- 1 mg 00:00: [facility] Medical Branch paroxetine 2018-0 Yes Univers 40 mg 2-28 ity of tablet 00:00: [address] Branch paroxetine 2018-0 Yes Univers 40 mg 2-28 ity of tablet 00:00: [place] [id number] Medical Branch paroxetine 2018-0 Yes Univers 40 mg 2-28 ity of tablet 00:00: [place] [address] Medical Branch paroxetine 2018-0 Yes Univers 40 mg 2-28 ity of tablet 00:00: [address] Branch paroxetine 2018-0 Yes Univers 40 mg 2-28 ity of tablet 00:00: [address] Branch paroxetine 2017-0 Yes Univers 40 mg 2-28 ity of tablet 00:00: [address] Branch paroxetine 2017-0 Yes Univers 40 mg 2-28 ity of tablet 00:00: [address] Branch paroxetine 2018-0 Yes Univers 40 mg 2-28 ity of tablet 00:00: [address] Branch paroxetine 2018-0 Yes Univers 40 mg 2-28 ity of tablet 00:00: [address] Branch paroxetine 2018-0 Yes Univers 40 mg 2-28 ity of tablet 00:00: [address] Branch paroxetine 2018-0 Yes Univers 40 mg 2-28 ity of tablet 00:00: [address] Branch paroxetine 2018-0 Yes Univers 40 mg 2-28 ity of tablet 00:00: [address] Branch paroxetine 2018-0 Yes Univers 40 mg 2-28 ity of tablet 00:00: [address] Branch paroxetine 2018-0 Yes Univers 40 mg 2-28 ity of tablet 00:00: [address] Branch paroxetine 2018-0 Yes Univers 40 mg 2-28 ity of tablet 00:00: [address] Branch paroxetine 2018-0 Yes Univers 40 mg 2-28 ity of tablet 00:00: [address] Branch paroxetine 2018-0 Yes Univers 40 mg 2-28 ity of tablet 00:00: [address] Branch paroxetine 2018-0 Yes Univers 40 mg 2-28 ity of tablet 00:00: [address] Branch paroxetine 2018-0 Yes Univers 40 mg 2-28 ity of tablet 00:00: [address] Branch paroxetine 0 Yes Univers 40 mg 2-28 ity of tablet 00:00: [place] 00 Medical Branch paroxetine 2017-0 Yes Univers 40 mg 2-28 ity of tablet 00:00: [place] 00 Medical Branch paroxetine 2017-0 Yes Univers 40 mg 2-28 ity of tablet 00:00: [place] 00 Medical Branch LEVEMIR 0 Yes INJECT 5 Univer [...] mL) Medical injection Branch LEVEMIR 0 Yes 60U [...] (3 mL) 00 Medical injection Branch sodium 2017- Yes 4mL Inhale 4 Univers chloride 3 1-14 mL 4 ity of % nebulizer 00:00: (four) [place] solution 00 times Medical daily. Branch sodium 2016- Yes 4mL Inhale 4 Univers chloride 3 1-14 mL 4 ity of % nebulizer 00:00: (four) [place] solution 00 times Medical daily. Branch sodium 2016- Yes 4mL Inhale 4 Univers chloride 3 1-14 mL 4 ity of % nebulizer 00:00: (four) [place] solution 00 times Medical daily. Branch sodium 2016- Yes 4mL Inhale 4 Univers chloride 3 [...] mg 4-18 BID ity of tablet 00:00: [place] [facility] ranitidine Yes TK 1 T PO Un alexia 300 mg 4-18 BID ity of tablet 00:00: [place] [facility] ranitidine Yes TK 1 T PO Un alexia 300 mg 4-18 BID ity of tablet 00:00: [place] [facility] ranitidine Yes TK 1 T PO Un alexia 300 mg 4-18 BID ity of tablet 00:00: [place] [facility] ranitidine Yes TK 1 T PO Un alexia 300 mg 4-18 BID ity of tablet 00:00: [place] [facility] ranitidine Yes TK 1 T PO Un alexia 300 mg 4-18 BID ity of tablet 00:00: [place] [facility] ranitidine Yes TK 1 T PO Un alexia 300 mg 4-18 BID ity of tablet 00:00: [place] [facility] ranitidine Yes TK 1 T PO Un alexia 300 mg 4-18 BID ity of tablet 00:00: [place] [facility] ranitidine Yes TK 1 T PO Un alexia 300 mg 4-18 BID ity of tablet 00:00: [facility] ranitidine Yes TK 1 T PO Un alexia 300 mg 4-18 BID ity of tablet 00:00: [place] [facility] ranitidine Yes TK 1 T PO Un alexia 300 mg 4-18 BID ity of tablet 00:00: [place] [facility] ranitidine Yes TK 1 T PO Un alexia 300 mg 4-18 BID ity of tablet 00:00: [place] [facility] ranitidine Yes TK 1 T PO Un alexia 300 mg 4-18 BID ity of tablet 00:00: [place] [facility] ranitidine 2021- No TK 1 T PO U nivers 300 mg 4-18 08-05 BID ity of tablet 00:00: 00:00 [place] 00 :00 Medical Branch QUEtiapine 2015-0 Yes 50mg Take [...] [place] 00 daily. Medical Branch paroxetine 2014-0 2022- No 40mg Take 2 Univ ers [...] [place] capsule 00 bedtime. Medical Branch pregabalin Yes 300mg Take 1 [...] Immunizations Ordered Filled Immunization Date Status Comments [facility] e Immunization Name Name Pneumococcal 2017-06-08 Completed University o f Polysaccharide, 00:00:00 [place] Med ical PPSV23 (PNEUMOVAX) Branch Influenza Virus 2017-06-08 Completed Universit y of Vaccine Quad IM 3+ 00:00:00 [facility] Pneumococcal 2017-06-08 Completed University o f Polysaccharide, 00:00:00 [place] Med ical PPSV23 (PNEUMOVAX) Branch Influenza Virus 2017-06-08 Completed Universit y of Vaccine [facility] IM 3+ 00:00:00 [facility] Pneumococcal 2017-06-08 Completed University o f Polysaccharide, 00:00:00 [place] Med ical PPSV23 (PNEUMOVAX) Branch Influenza Virus 2017-06-08 Completed Universit y of Vaccine [facility] IM 3+ 00:00:00 [facility] Pneumococcal 2017-06-08 Completed University o f Polysaccharide, 00:00:00 [place] Med ical PPSV23 (PNEUMOVAX) Branch Influenza Virus 2017-06-08 Completed Universit y of Vaccine [facility] IM 3+ 00:00:00 [facility] Pneumococcal 2017-06-08 Completed University o f Polysaccharide, 00:00:00 [place] Med ical PPSV23 (PNEUMOVAX) Branch Influenza Virus 2017-06-08 Completed Universit y of Vaccine Quad IM 3+ 00:00:00 [facility] Pneumococcal 2017-06-08 Completed University o f Polysaccharide, 00:00:00 [place] Med ical PPSV23 (PNEUMOVAX) Branch Influenza Virus 2017-06-08 Completed Universit y of Vaccine Quad IM 3+ 00:00:00 [facility] Pneumococcal 2017-06-08 Completed University o f Polysaccharide, 00:00:00 [place] Med ical PPSV23 (PNEUMOVAX) Branch Influenza Virus 2017-06-08 Completed Universit y of Vaccine Quad IM 3+ 00:00:00 [facility] Pneumococcal 2017-06-08 Completed University o f Polysaccharide, 00:00:00 [place] Med ical PPSV23 (PNEUMOVAX) Branch Influenza Virus 2017-06-08 Completed Universit y of Vaccine Quad IM 3+ 00:00:00 [facility] Pneumococcal 2017-06-08 Completed University o f Polysaccharide, 00:00:00 [place] Med ical PPSV23 (PNEUMOVAX) Branch Influenza Virus 2017-06-08 Completed Universit y of Vaccine Quad IM 3+ 00:00:00 [facility] Pneumococcal 2017-06-08 Completed University o f Polysaccharide, 00:00:00 [place] Med ical PPSV23 (PNEUMOVAX) Branch Influenza Virus 2017-06-08 Completed Universit y of Vaccine Quad IM 3+ 00:00:00 [facility] Pneumococcal 2017-06-08 Completed University o f Polysaccharide, 00:00:00 [place] Med ical PPSV23 (PNEUMOVAX) Branch Influenza Virus 2017-06-08 Completed Universit y of Vaccine Quad IM 3+ 00:00:00 [facility] Pneumococcal 2017-06-08 Completed University o f Polysaccharide, 00:00:00 [place] Med ical PPSV23 (PNEUMOVAX) Branch Influenza Virus 2017-06-08 Completed Universit y of Vaccine Quad IM 3+ 00:00:00 [facility] Pneumococcal 2017-06-08 Completed University o f Polysaccharide, 00:00:00 [place] Med ical PPSV23 (PNEUMOVAX) Branch Influenza Virus 2017-06-08 Completed Universit y of Vaccine Quad IM 3+ 00:00:00 [facility] Pneumococcal 2017-06-08 Completed University o f Polysaccharide, 00:00:00 [place] Med ical PPSV23 (PNEUMOVAX) Branch Influenza Virus 2017-06-08 Completed Universit y of Vaccine Quad IM 3+ 00:00:00 [facility] Pneumococcal 2017-06-08 Completed University o f Polysaccharide, 00:00:00 [place] Med ical PPSV23 (PNEUMOVAX) Branch Influenza Virus 2017-06-08 Completed Universit y of Vaccine Quad IM 3+ 00:00:00 [facility] Pneumococcal 2017-06-08 Completed University o f Polysaccharide, 00:00:00 [place] Med ical PPSV23 (PNEUMOVAX) Branch Influenza Virus 2017-06-08 Completed Universit y of Vaccine Quad IM 3+ 00:00:00 [facility] Pneumococcal 2017-06-08 Completed University o f Polysaccharide, 00:00:00 [place] Med ical PPSV23 (PNEUMOVAX) Branch Influenza Virus 2017-06-08 Completed Universit y of Vaccine Quad IM 3+ 00:00:00 [facility] Pneumococcal 2017-06-08 Completed University o f Polysaccharide, 00:00:00 [place] Med ical PPSV23 (PNEUMOVAX) Branch Influenza Virus 2017-06-08 Completed Universit y of Vaccine Quad IM 3+ 00:00:00 [facility] Pneumococcal 2017-06-08 Completed University o f Polysaccharide, 00:00:00 [place] Med ical PPSV23 (PNEUMOVAX) Branch Influenza Virus 2017-06-08 Completed Universit y of Vaccine Quad IM 3+ 00:00:00 [facility] Pneumococcal 2017-06-08 Completed University o f Polysaccharide, 00:00:00 [place] Med ical PPSV23 (PNEUMOVAX) Branch Influenza Virus 2017-06-08 Completed Universit y of Vaccine Quad IM 3+ 00:00:00 [facility] Pneumococcal 2017-06-08 Completed University o f Polysaccharide, 00:00:00 [place] Med ical PPSV23 (PNEUMOVAX) Branch Influenza Virus 2017-06-08 Completed Universit y of Vaccine Quad IM 3+ 00:00:00 [facility] Pneumococcal 2017-06-08 Completed University o f Polysaccharide, 00:00:00 [place] Med ical PPSV23 (PNEUMOVAX) Branch Influenza Virus 2017-06-08 Completed Universit y of Vaccine Quad IM 3+ 00:00:00 [facility] Influenza Virus 2015-06-20 Completed Universit y of Vaccine Quad IM 3+ 00:00:00 [facility] Influenza Virus 2015-06-20 Completed Universit y of Vaccine Quad IM 3+ 00:00:00 [facility] Influenza Virus 2015-06-20 Completed Universit y of Vaccine Quad IM 3+ 00:00:00 [facility] Influenza Virus 2015-06-20 Completed Universit y of Vaccine Quad IM 3+ 00:00:00 [facility] Influenza Virus 2015-06-20 Completed Universit y of Vaccine Quad IM 3+ 00:00:00 [facility] Influenza Virus 2015-06-20 Completed Universit y of Vaccine Quad IM 3+ 00:00:00 [facility] Influenza Virus 2015-06-20 Completed Universit y of Vaccine Quad IM 3+ 00:00:00 [facility] Influenza Virus 2015-06-20 Completed Universit y of Vaccine Quad IM 3+ 00:00:00 [facility] Influenza Virus 2015-06-20 Completed Universit y of Vaccine Quad IM 3+ 00:00:00 [facility] Influenza Virus 2015-06-20 Completed Universit y of Vaccine Quad IM 3+ 00:00:00 [facility] Influenza Virus 2015-06-20 Completed Universit y of Vaccine Quad IM 3+ 00:00:00 [facility] Influenza Virus 2015-06-20 Completed Universit y of Vaccine Quad IM 3+ 00:00:00 [facility] Influenza Virus 2015-06-20 Completed Universit y of Vaccine Quad IM 3+ 00:00:00 [facility] Influenza Virus 2015-06-20 Completed Universit y of Vaccine Quad IM 3+ 00:00:00 [facility] Influenza Virus 2015-06-20 Completed Universit y of Vaccine Quad IM 3+ 00:00:00 [facility] Influenza Virus 2015-06-20 Completed Universit y of Vaccine Quad IM 3+ 00:00:00 [facility] Influenza Virus 2015-06-20 Completed Universit y of Vaccine Quad IM 3+ 00:00:00 [facility] Influenza Virus 2015-06-20 Completed Universit y of Vaccine Quad IM 3+ 00:00:00 [facility] Influenza Virus 2015-06-20 Completed Universit y of Vaccine Quad IM 3+ 00:00:00 [facility] Influenza Virus 2015-06-20 Completed Universit y of Vaccine Quad IM 3+ 00:00:00 [facility] Influenza Virus 2015-06-20 Completed Universit y of Vaccine Quad IM 3+ 00:00:00 [facility] Influenza Virus 2015-06-20 Completed Universit y of Vaccine Quad IM 3+ 00:00:00 [facility] Pneumococcal 2014-07-31 Completed University o f Polysaccharide, 00:00:00 [place] [facility] ical PPSV23 (PNEUMOVAX) [place] Influenza Virus 2014-07-31 Completed Universit y of Vaccine Quad IM 3+ 00:00:00 [facility] TDAP 2014-07-31 Completed University of 00:00:00 [facility] [place] [facility] Pneumococcal 2014-07-31 Completed University o f Polysaccharide, 00:00:00 [place] [facility] ical PPSV23 (PNEUMOVAX) Branch Influenza Virus 2014-07-31 Completed Universit y of Vaccine Quad IM 3+ 00:00:00 [facility] TDAP 2014-07-31 Completed University of 00:00:00 [facility] [place] [facility] Pneumococcal 2014-07-31 Completed University o f Polysaccharide, 00:00:00 [place] Med ical PPSV23 (PNEUMOVAX) Branch Influenza Virus 2014-07-31 Completed Universit y of Vaccine Quad IM 3+ 00:00:00 [facility] TDAP 2014-07-31 Completed University of 00:00:00 [facility] [place] [facility] Pneumococcal 2014-07-31 Completed University o f Polysaccharide, 00:00:00 [place] Med ical PPSV23 (PNEUMOVAX) Branch Influenza Virus 2014-07-31 Completed Universit y of Vaccine Quad IM 3+ 00:00:00 [facility] TDAP 2014-07-31 Completed University of 00:00:00 [facility] [place] [facility] Pneumococcal 2014-07-31 Completed University o f Polysaccharide, 00:00:00 [place] Med ical PPSV23 (PNEUMOVAX) Branch Influenza Virus 2014-07-31 Completed Universit y of Vaccine Quad IM 3+ 00:00:00 [facility] TDAP 2014-07-31 Completed University of 00:00:00 [facility] [place] [facility] Pneumococcal 2014-07-31 Completed University o f Polysaccharide, 00:00:00 [place] Med ical PPSV23 (PNEUMOVAX) Branch Influenza Virus 2014-07-31 Completed Universit y of Vaccine Quad IM 3+ 00:00:00 [facility] TDAP 2014-07-31 Completed University of 00:00:00 [facility] [place] [facility] Pneumococcal 2014-07-31 Completed University o f Polysaccharide, 00:00:00 [place] Med ical PPSV23 (PNEUMOVAX) Branch Influenza Virus 2014-07-31 Completed Universit y of Vaccine Quad IM 3+ 00:00:00 [facility] TDAP 2014-07-31 Completed University of 00:00:00 [facility] [place] [facility] Pneumococcal 2014-07-31 Completed University o f Polysaccharide, 00:00:00 [place] Med ical PPSV23 (PNEUMOVAX) Branch Influenza Virus 2014-07-31 Completed Universit y of Vaccine Quad IM 3+ 00:00:00 [facility] TDAP 2014-07-31 Completed University of 00:00:00 [facility] [place] [facility] Pneumococcal 2014-07-31 Completed University o f Polysaccharide, 00:00:00 [place] Med ical PPSV23 (PNEUMOVAX) Branch Influenza Virus 2014-07-31 Completed Universit y of Vaccine Quad IM 3+ 00:00:00 [facility] TDAP 2014-07-31 Completed University of 00:00:00 [facility] [place] [facility] Pneumococcal 2014-07-31 Completed University o f Polysaccharide, 00:00:00 [place] Med ical PPSV23 (PNEUMOVAX) Branch Influenza Virus 2014-07-31 Completed Universit y of Vaccine Quad IM 3+ 00:00:00 [facility] TDAP 2014-07-31 Completed University of 00:00:00 [facility] [place] [facility] Pneumococcal 2014-07-31 Completed University o f Polysaccharide, 00:00:00 [place] Med ical PPSV23 (PNEUMOVAX) Branch Influenza Virus 2014-07-31 Completed Universit y of Vaccine Quad IM 3+ 00:00:00 [facility] TDAP 2014-07-31 Completed University of 00:00:00 [facility] [place] [facility] Pneumococcal 2014-07-31 Completed University o f Polysaccharide, 00:00:00 [place] Med ical PPSV23 (PNEUMOVAX) Branch Influenza Virus 2014-07-31 Completed Universit y of Vaccine Quad IM 3+ 00:00:00 [facility] TDAP 2014-07-31 Completed University of 00:00:00 [facility] [place] [facility] Pneumococcal 2014-07-31 Completed University o f Polysaccharide, 00:00:00 [place] Med ical PPSV23 (PNEUMOVAX) Branch Influenza Virus 2014-07-31 Completed Universit y of Vaccine Quad IM 3+ 00:00:00 [facility] TDAP 2014-07-31 Completed University of 00:00:00 [facility] [place] [facility] Pneumococcal 2014-07-31 Completed University o f Polysaccharide, 00:00:00 [place] Med ical PPSV23 (PNEUMOVAX) Branch Influenza Virus 2014-07-31 Completed Universit y of Vaccine Quad IM 3+ 00:00:00 [facility] TDAP 2014-07-31 Completed University of 00:00:00 [facility] [place] [facility] Pneumococcal 2014-07-31 Completed University o f Polysaccharide, 00:00:00 [place] Med ical PPSV23 (PNEUMOVAX) Branch Influenza Virus 2014-07-31 Completed Universit y of Vaccine Quad IM 3+ 00:00:00 [facility] TDAP 2014-07-31 Completed University of 00:00:00 [facility] [place] [facility] Pneumococcal 2014-07-31 Completed University o f Polysaccharide, 00:00:00 [place] Med ical PPSV23 (PNEUMOVAX) Branch Influenza Virus 2014-07-31 Completed Universit y of Vaccine Quad IM 3+ 00:00:00 [facility] TDAP 2014-07-31 Completed University of 00:00:00 [facility] [place] [facility] Pneumococcal 2014-07-31 Completed University o f Polysaccharide, 00:00:00 [place] Med ical PPSV23 (PNEUMOVAX) Branch Influenza Virus 2014-07-31 Completed Universit y of Vaccine Quad IM 3+ 00:00:00 [facility] TDAP 2014-07-31 Completed University of 00:00:00 [facility] [place] [facility] Pneumococcal 2014-07-31 Completed University o f Polysaccharide, 00:00:00 [place] Med ical PPSV23 (PNEUMOVAX) Branch Influenza Virus 2014-07-31 Completed Universit y of Vaccine Quad IM 3+ 00:00:00 [facility] TDAP 2014-07-31 Completed University of 00:00:00 [facility] [place] [facility] Pneumococcal 2014-07-31 Completed University o f Polysaccharide, 00:00:00 [place] Med ical PPSV23 (PNEUMOVAX) Branch Influenza Virus 2014-07-31 Completed Universit y of Vaccine Quad IM 3+ 00:00:00 [facility] TDAP 2014-07-31 Completed University of 00:00:00 [facility] [place] [facility] Pneumococcal 2014-07-31 Completed University o f Polysaccharide, 00:00:00 [place] Med ical PPSV23 (PNEUMOVAX) Branch Influenza Virus 2014-07-31 Completed Universit y of Vaccine Quad IM 3+ 00:00:00 [facility] TDAP 2014-07-31 Completed University of 00:00:00 [facility] [place] [facility] Pneumococcal 2014-07-31 Completed University o f Polysaccharide, 00:00:00 [place] Med ical PPSV23 (PNEUMOVAX) Branch Influenza Virus 2014-07-31 Completed Universit y of Vaccine Quad IM 3+ 00:00:00 [facility] TDAP 2014-07-31 Completed University of 00:00:00 [facility] [place] [facility] Pneumococcal 2014-07-31 Completed University o f Polysaccharide, 00:00:00 [place] Med ical PPSV23 (PNEUMOVAX) Branch Influenza Virus 2014-07-31 Completed Universit y of Vaccine Quad IM 3+ 00:00:00 [facility] TDAP 2014-07-31 Completed University of 00:00:00 [facility] [place] [facility] Vital Signs Vital Name Observation Time Observation Value Comments Source HEIGHT 2022-11-25 03:00:00 154.9 cm WEIGHT 2022-11-25 03:00:00 95.3 kg HEIGHT 2022-11-25 03:00:00 154.9 cm WEIGHT 2022-11-25 03:00:00 95.3 kg HEIGHT 2022-11-25 03:00:00 154.9 cm WEIGHT 2022-11-25 03:00:00 95.3 kg Systolic blood 2022-09-09 14:30:00 105 mm[Hg] Univer sity of pressure [place] [facility] Diastolic blood 2022-09-09 14:30:00 78 mm[Hg] Unive rsity of pressure [place] [facility] Heart rate 2022-09-09 14:30:00 95 /min [facility] [place] [facility] Body temperature 2022-09-09 14:30:00 37.22 [place] Univ ersity of [place] [facility] Respiratory rate 2022-09-09 14:30:00 12 /min Univ ersity of [place] [facility] Oxygen saturation in 2022-09-09 14:30:00 93 /min University of Arterial blood by [place] [facility] Pulse oximetry Branch Body height 2022-09-09 12:41:00 152.4 cm [facility] [place] [facility] Body weight 2022-09-09 12:41:00 98.431 kg [facility] [place] [facility] BMI 2022-09-09 12:41:00 42.38 kg/m2 [facility] [place] [facility] Systolic blood 2022-08-10 22:08:00 129 mm[Hg] Univer sity of pressure [place] [facility] Diastolic blood 2022-08-10 22:08:00 76 mm[Hg] Unive rsity of pressure [place] [facility] Heart rate 2022-08-10 22:08:00 107 /min [facility] [place] [facility] Body temperature 2022-08-10 22:08:00 37.17 [place] Univ ersity of [place] [facility] Respiratory rate 2022-08-10 22:08:00 15 /min Univ ersity of [place] [facility] Oxygen saturation in 2022-08-10 22:08:00 96 /min University of Arterial blood by [place] [facility] Pulse oximetry Branch Body weight 2022-08-10 09:00:00 98.5 kg [facility] [place] [facility] BMI 2022-08-10 09:00:00 41.03 kg/m2 [facility] [place] [facility] Body height 2022-08-05 06:47:00 154.9 cm [facility] [place] [facility] Systolic blood 2022-06-05 05:00:00 96 mm[Hg] Univer sity of pressure [place] [facility] Diastolic blood 2022-06-05 05:00:00 66 mm[Hg] Unive rsity of pressure [place] [facility] Heart rate 2022-06-05 05:00:00 82 /min [facility] [place] [facility] Respiratory rate 2022-06-05 05:00:00 13 /min Univ ersity of [place] [facility] Oxygen saturation in 2022-06-05 05:00:00 97 /min University of Arterial blood by [facility] Pulse oximetry Branch Body temperature 2022-06-05 02:51:00 36.33 [place] Univ ers[facility] [place] [facility] Body height 2022-06-05 02:51:00 154.9 cm [facility] [place] [facility] Body weight 2022-06-05 02:51:00 97.523 kg [facility] [place] [facility] BMI 2022-06-05 02:51:00 40.62 kg/m2 [facility] [place] [facility] Systolic blood 2022-05-13 07:00:00 127 mm[Hg] Univer sity of pressure [place] [facility] Diastolic blood 2022-05-13 07:00:00 84 mm[Hg] [facility] Heart rate 2022-05-13 07:00:00 90 /min [facility] Respiratory rate 2022-05-13 07:00:00 14 /min [facility] Oxygen saturation in 2022-05-13 07:00:00 97 /min [facility] Arterial blood by [facility] michel Pulse oximetry Branch Body temperature 2022-05-13 04:01:00 36.56 Laly [facility] Body height 2022-05-13 04:01:00 154.9 cm [facility] Body weight 2022-05-13 04:01:00 95.255 kg [facility] BMI 2022-05-13 04:01:00 39.68 kg/m2 [facility] Systolic blood 2022-05-02 07:00:00 147 mm[Hg] [facility] Diastolic blood 2022-05-02 07:00:00 90 mm[Hg] [facility] Heart rate 2022-05-02 07:00:00 86 /min [facility] Respiratory rate 2022-05-02 07:00:00 17 /min [facility] Oxygen saturation in 2022-05-02 07:00:00 98 /min [facility] Arterial blood by [facility] Pulse oximetry Branch Body temperature 2022-05-02 05:21:00 36.44 Laly [facility] Body height 2022-05-02 05:21:00 154.9 cm [facility] Body weight 2022-05-02 05:21:00 95.255 kg [facility] BMI 2022-05-02 05:21:00 39.68 kg/m2 [facility] Systolic blood 2022-04-29 05:36:00 133 mm[Hg] [facility] Diastolic blood 2022-04-29 05:36:00 85 mm[Hg] [facility] Heart rate 2022-04-29 05:36:00 89 /min [facility] Respiratory rate 2022-04-29 05:36:00 22 /min [facility] Oxygen saturation in 2022-04-29 05:36:00 100 /min [facility] Arterial blood by [facility] Pulse oximetry Branch Body temperature 2022-04-29 02:44:00 36.56 Laly [facility] Body height 2022-04-29 02:44:00 154.9 cm [facility] Body weight 2022-04-29 02:44:00 95.255 kg [facility] BMI 2022-04-29 02:44:00 39.68 kg/m2 [facility] Systolic blood 2022-02-27 21:00:00 116 mm[Hg] [facility] Diastolic blood 2022-02-27 21:00:00 74 mm[Hg] [facility] Heart rate 2022-02-27 21:00:00 89 /min [facility] Body temperature 2022-02-27 21:00:00 36.61 Laly [facility] Respiratory rate 2022-02-27 21:00:00 18 /min [facility] Oxygen saturation in 2022-02-27 21:00:00 98 /min [facility] [place] [facility] P[facility] oxim[facility] Body weight 2022-02-23 13:00:00 92.987 kg [facility] BMI 2022-02-23 13:00:00 38.73 kg/m2 [facility] Body height 2022-02-21 01:00:00 154.9 cm [facility] Body temperature 2022-02-17 21:50:00 37.17 Laly [facility] Heart rate 2022-02-17 21:42:00 77 /min [facility] Respiratory rate 2022-02-17 21:42:00 18 /min [facility] Oxygen saturation in 2022-02-17 21:42:00 94 /min [facility]ial blood by [facility] Pulse oximetry Branch Systolic blood 2022-02-17 10:00:00 122 mm[Hg] [facility] Diastolic blood 2022-02-17 10:00:00 69 mm[Hg] [facility] Body weight 2022-02-17 01:00:00 107 kg [facility] BMI 2022-02-17 01:00:00 44.57 kg/m2 [facility] Body height 2022-02-12 09:00:00 154.9 cm [facility] Systolic blood 2022-01-31 16:32:00 136 mm[Hg] [facility] Diastolic blood 2022-01-31 16:32:00 80 mm[Hg] [facility] Heart rate 2022-01-31 16:32:00 84 /min [facility] Body temperature 2022-01-31 16:32:00 37 Laly [facility] Respiratory rate 2022-01-31 16:32:00 10 /min [facility] Oxygen saturation in 2022-01-31 16:32:00 98 /min [facility] Arterial blood by [facility] michel Pulse oximetry Branch Body weight 2022-01-30 09:00:00 103.964 kg [facility] BMI 2022-01-30 09:00:00 43.31 kg/m2 [facility] Body height 2022-01-28 04:12:00 154.9 cm [facility] Systolic blood 2022-01-13 03:00:00 134 mm[Hg] [facility] Diastolic blood 2022-01-13 03:00:00 94 mm[Hg] [facility] Heart rate 2022-01-13 03:00:00 119 /min [facility] Respiratory rate 2022-01-13 03:00:00 18 /min [facility] Oxygen saturation in 2022-01-13 03:00:00 91 /min [facility] [place] [facility] Pulse oxim[facility] Branch Body temperature 2022-01-12 22:31:00 36.94 Laly [facility] Body height 2022-01-12 22:31:00 154.9 cm [facility] Body weight 2022-01-12 22:31:00 104.327 kg [facility] BMI 2022-01-12 22:31:00 43.46 kg/m2 [facility] Systolic blood 2022-01-12 17:00:00 135 mm[Hg] [facility] Diastolic blood 2022-01-12 17:00:00 65 mm[Hg] [facility] Heart rate 2022-01-12 17:00:00 108 /min [facility] Respiratory rate 2022-01-12 17:00:00 20 /min [facility] Oxygen saturation in 2022-01-12 17:00:00 92 /min [facility] [place] [facility] Pulse oximetry Branch Body temperature 2022-01-12 09:00:00 36.22 Laly [facility] Body weight 2022-01-03 17:00:00 104.32 kg [facility] BMI 2022-01-03 17:00:00 43.46 kg/m2 [facility] Body height 2022-01-02 09:20:00 154.9 cm [facility] Systolic blood 2021-12-09 05:00:00 123 mm[Hg] [facility] Diastolic blood 2021-12-09 05:00:00 66 mm[Hg] [facility] Heart rate 2021-12-09 05:00:00 96 /min [facility] Respiratory rate 2021-12-09 05:00:00 13 /min [facility] Oxygen saturation in 2021-12-09 05:00:00 96 /min [facility] blood by [place] [facility]hel Pulse oximetry Branch Body temperature 2021-12-09 03:35:00 35.94 Laly [facility] Body height 2021-12-09 03:35:00 154.9 cm [facility] Body weight 2021-12-09 03:35:00 104.327 kg [facility] BMI 2021-12-09 03:35:00 43.46 kg/m2 [facility] Systolic blood 2021-09-23 20:00:00 141 mm[Hg] [facility] Diastolic blood 2021-09-23 20:00:00 83 mm[Hg] [facility] Heart rate 2021-09-23 20:00:00 98 /min [facility] Respiratory rate 2021-09-23 20:00:00 16 /min [facility] Oxygen saturation in 2021-09-23 20:00:00 97 /min [facility] blood by [place] [facility]hel Pulse oximetry Branch Body temperature 2021-09-23 18:00:00 36.61 Laly [facility] Body height 2021-09-22 21:50:00 154.9 cm [facility] Body weight 2021-09-22 21:50:00 104.3 kg [facility] BMI 2021-09-22 21:50:00 43.45 kg/m2 [facility] Systolic blood 2022-11-26 12:00:00 132 mm[Hg] [facility] Diastolic blood 2022-11-26 12:00:00 78 mm[Hg] [facility] Heart rate 2022-11-26 12:00:00 88 /min [facility] Respiratory rate 2022-11-26 12:00:00 12 /min [facility] Oxygen saturation in 2022-11-26 12:00:00 98 /min [facility] Arterial blood by Medical Ce nter Pulse oximetry Body temperature 2022-11-26 08:00:00 36.61 Laly [facility] Body height 2022-11-25 03:00:00 154.9 cm [facility] Body weight 2022-11-25 03:00:00 95.3 kg [facility] BMI 2022-11-25 03:00:00 39.70 kg/m2 [facility] Procedures Procedure Date / Time Performing Clinician Source Performed POCT-GLUCOSE METER 2022-11-26 10:10:00 Charlie [facility] XR CHEST 1 VIEW PORTABLE 2022-11-26 09:14:00 Charlie [facility] BEDSIDE Center CBC W/PLT COUNT & AUTO 2022-11-26 06:01:00 Charlie [facility] COMPREHENSIVE METABOLIC 2022-11-26 06:01:00 Charlie [facility] PANEL [place] MAGNESIUM 2022-11-26 06:01:00 Charlie [facility] CBC W/PLT COUNT & AUTO 2022-11-26 06:01:00 Charlie [facility] POCT-GLUCOSE METER 2022-11-25 23:20:00 Lira [facility] CBC W/PLT COUNT & AUTO 2022-11-25 16:53:00 Charlie [facility] COMPREHENSIVE METABOLIC 2022-11-25 16:53:00 Charlie [facility] PANEL [place] MAGNESIUM 2022-11-25 16:53:00 Charlie [facility] HEMOGLOBIN A1C 2022-11-25 16:53:00 Charlie [facility] TSH/FREE T4 IF INDICATED 2022-11-25 16:53:00 Charlie [facility] B-TYPE NATRIURETIC FACTOR 2022-11-25 16:53:00 Lira, [facility] T4, FREE 2022-11-25 16:53:00 Charlie [facility] CBC W/PLT COUNT & AUTO 2022-11-25 16:53:00 Lira, [facility] POCT-GLUCOSE METER 2022-11-25 16:32:00 Lira [facility] POCT-GLUCOSE METER 2022-11-25 09:08:00 Charlie [facility] EKG-SCANNED 2022-11-25 00:00:00 Provider [facility] TROPONIN I 2022-09-09 13:20:00 Joslyn Ruelas [facility] COMP. METABOLIC PANEL 2022-09-09 13:20:00 Joslyn Ruelas [facility] ([id number]) [facility] CBC WITH DIFF 2022-09-09 13:20:00 Joslyn Ruelas [facility] RAPID INFLUENZA A/B 2022-09-09 13:20:00 Joslyn Ruelas [facility] N-TERMINAL PRO-BNP 2022-09-09 13:20:00 Joslyn [facility]uelas [facility] (ID NOW RAPID 2022-09-09 13:20:00 Joslyn Ruelas [facility] TESTING) [facility] CONSENT/REFUSAL FOR 2022-09-09 12:19:48 Doctor Unassigned, [facility] DIAGNOSIS AND TREATMENT [place] [facility] POCT GLUCOSE (AUTOMATED) 2022-08-10 17:15:00 Jonas Hernandez Uni [facility] POCT GLUCOSE (AUTOMATED) 2022-08-10 13:45:00 Jonas Hernandez [facility] POCT GLUCOSE (AUTOMATED) 2022-08-10 09:17:00 Jonas Hernandez [facility] POCT GLUCOSE (AUTOMATED) 2022-08-10 06:01:00 Jonas Hernandez [facility] POCT GLUCOSE (AUTOMATED) 2022-08-10 02:09:00 Jonas Hernandez [facility] POCT GLUCOSE (AUTOMATED) 2022-08-09 22:26:00 Jonas Hernandez [facility] XR CHEST 1 VW 2022-08-09 19:47:37 Gogo [facility] XR CHEST 1 VW 2022-08-09 14:07:17 Carlos [facility] POCT GLUCOSE (AUTOMATED) 2022-08-09 13:17:00 Jonas Hernandez Uni [facility] PHOSPHORUS 2022-08-09 11:24:00 Carlos [facility] MAGNESIUM 2022-08-09 11:24[facility] 2022-08-09 11:24:00 Corey Gonzalez [facility] (NA, K, CL, CO2, GLUCOSE, Medica l Branch BUN, CREATININE, CA) CBC WITH DIFF 2022-08-09 11:24:00 Carlos [facility] POCT GLUCOSE (AUTOMATED) 2022-08-09 11:22:00 Jonas Hernandez [facility] POCT GLUCOSE (AUTOMATED) 2022-08-09 06:16:00 Jonas Hernandez [facility] POCT GLUCOSE (AUTOMATED) 2022-08-09 02:24:00 Jonas Hernandez [facility] POCT GLUCOSE (AUTOMATED) 2022-08-08 22:31:00 Jonas Hernandez [facility] POCT GLUCOSE (AUTOMATED) 2022-08-08 17:30:00 Jonas Hernandez [facility] POCT GLUCOSE (AUTOMATED) 2022-08-08 13:20:00 Jonas Hernandez [facility] POCT GLUCOSE (AUTOMATED) 2022-08-08 09:51:00 Jonas Hernandez [facility] POCT GLUCOSE (AUTOMATED) 2022-08-08 06:10:00 Jonas Hernandez [facility] POCT GLUCOSE (AUTOMATED) 2022-08-08 02:37:00 Jonas Hernandez [facility] POCT GLUCOSE (AUTOMATED) 2022-08-07 22:16:00 Jonas Hernandez [facility] POCT GLUCOSE (AUTOMATED) 2022-08-07 17:26:00 Jonas Hernandez [facility] TRANSTHORACIC ECHO (TTE) 2022-08-07 16:31:00 Stella Ivory [facility] COMPLETE W/ CONTRAST Medical [facility] POCT GLUCOSE (AUTOMATED) 2022-08-07 13:42:00 Jonas Hernandez [facility] PHOSPHORUS 2022-08-07 11:00:00 Corey Gonzalez [facility] MAGNESIUM 2022-08-07 11:00:00 Carlos [facility] BILI UNCONJUGATED/BILI 2022-08-07 11:00:00 Corey Gonzalez [facility] TROPONIN I 2022-08-07 11:00:00 Corey Gonzalez [facility] THYROID STIMULATING 2022-08-07 11:00:00 Corey Gonzalez [facility] HORMONE [facility] COMP. METABOLIC PANEL 2022-08-07 11:00:00 Jonas Hernandez [facility] ([id number]) [facility] CBC WITH DIFF 2022-08-07 11:00:00 Corey Gonzalez [facility] N-TERMINAL PRO-BNP 2022-08-07 11:00:00 Corey Gonzalez [facility] ACUTE CARE VENOUS BLOOD 2022-08-07 10:59:00 Jonas Hernandez [facility] POCT GLUCOSE (AUTOMATED) 2022-08-07 10:17:00 Jonas Hernandez [facility] POCT GLUCOSE (AUTOMATED) 2022-08-07 05:38:00 Jonas Hernandze [facility] POCT GLUCOSE (AUTOMATED) 2022-08-07 02:06:00 Jonas Hernandez [facility] POCT GLUCOSE (AUTOMATED) 2022-08-06 22:27:00 Jonas Hernandez [facility] POCT GLUCOSE (AUTOMATED) 2022-08-06 17:15:00 Jonas Hernandez [facility] CT THORAX W CONTRAST 2022-08-06 16:53:51 Anish Walters [facility] CORTISOL AM 2022-08-06 13:33:[address] [facility] CBC WITH DIFF 2022-08-06 13:33:[address] [facility] LACTIC ACID WHOLE BLOOD 2022-08-06 13:33:00 Mary agus [facility] POCT GLUCOSE (AUTOMATED) 2022-08-06 13:27:00 Jonas Hernandez [facility] POCT GLUCOSE (AUTOMATED) 2022-08-06 10:37:00 Jonas Hernandez [facility] PHOSPHORUS 2022-08-06 10:25:00 Jonas Hernandez [facility] CREATINE KINASE 2022-08-06 10:25:[address] [facility] MAGNESIUM 2022-08-06 10:25:[address] [facility] TROPONIN I 2022-08-06 10:25:[address] [facility] COMP. METABOLIC PANEL 2022-08-06 10:25:00 [id number] ACUTE CARE VENOUS BLOOD 2022-08-06 10:25:00 Jonas Hernandez [facility] N-TERMINAL PRO-BNP 2022-08-06 10:25:00 Jonas Hernandez [facility] POCT GLUCOSE (AUTOMATED) 2022-08-06 06:54:00 Jonas Hernandez [facility] POCT GLUCOSE (AUTOMATED) 2022-08-06 02:30:00 Jonas Hernandez [facility] POCT GLUCOSE (AUTOMATED) 2022-08-05 22:59:00 Jonas Hernandez [facility] TROPONIN I 2022-08-05 22:00:00 Jonas Hernandez [facility] URINALYSIS 2022-08-05 21:45[facility]-08-05 21:45[facility] (AUTOMATED) 2022-08-05 17:53:00 Jonas Hernandez [facility] POCT GLUCOSE (AUTOMATED) 2022-08-05 13:19:00 Jonas Hernandez [facility] XR CHEST 1 VW 2022-08-05 12:59:00 Mary agus [facility] LEGIONELLA URINARY 2022-08-05 11:12:00 Jonas Hernandez [facility] ANTIGEN [facility] RESPIRATORY PANEL BY PCR 2022-08-05 11:12:00 Jonas Hernandez [facility] URINE CULTURE 2022-08-05 11:11:00 Jonas Hernandez [facility] SODIUM, URINE RANDOM 2022-08-05 11:11:00 [facility]as [facility] PNEUMOCOCCAL ANTIGEN 2022-08-05 11:11:00 Jonas [facility] PROTEIN CREAT RATIO URINE 2022-08-05 11:11:00 [facility] 2022-08-05 11:10:00 [facility] MRSA / MSSA SCREEN BY 2022-08-05 11:09:00 Jonas Hernandez [facility] PCR, [facility] PHOSPHORUS 2022-08-05 11:08:00 Mary agus [facility] CREATINE KINASE 2022-08-05 11:08:[address] [facility] MAGNESIUM 2022-08-05 11:08:[address] [facility] TROPONIN I 2022-08-05 11:08:[address] [facility] COMP. METABOLIC PANEL 2022-08-05 11:08:00 Mary agus [facility] ([id number]) Medical Branch LIPID PANEL ([id number])(TOTAL 2022-08-05 11:08:00 Jonas Hernandez [facility] CHOLESTEROL, [facility] TRIGLYCERIDES, HDL) SEDIMENTATION RATE 2022-08-05 11:08:00 Jonas Hernandez [facility] GLYCOSYLATED HEMOGLOBIN 2022-08-05 11:08:00 Mary agus [facility] (A1C) [facility] URINALYSIS 2022-08-05 11:08:[address] [facility] MYCOPLASMA PNEUMONIAE 2022-08-05 11:08:00 Mary agus [facility] ANTIBODY, IGM [facility] N-TERMINAL PRO-BNP 2022-08-05 11:08:00 Mary agus [facility] PROCALCITONIN 2022-08-05 11:08:00 Mary agus [facility] AC PANEL 20 + LACTIC ACID 2022-08-05 10:56:00 Jonas Hernandez [facility] ASSIGNMENT OF BENEFITS 2022-08-05 06:59:31 Doctor Unassigned, [facility] Name [facility] CONSENT/REFUSAL FOR 2022-08-05 06:58:52 Doctor Unassigned, [facility] DIAGNOSIS AND TREATMENT [place] [facility] XR CHEST 1 VW 2022-06-05 04:10:06 Singer [facility] TROPONIN I 2022-06-05 03:21:00 Singer [facility] COMP. METABOLIC PANEL 2022-06-05 03:21:00 Singer [facility] ([id number]) [facility] CBC WITH DIFF 2022-06-05 03:21:00 Singer [facility] RAPID INFLUENZA A/B 2022-06-05 03:21:00 Singer Gen [facility] N-TERMINAL PRO-BNP 2022-06-05 03:21:00 Singer [facility] COVID-19 (ID NOW RAPID 2022-06-05 03:21:00 Gen Acevedo [facility] TESTING) Medical Branch CONSENT/REFUSAL FOR 2022-06-05 02:20:45 [facility]REATMENT [place] [facility] TROPONIN I 2022-05-13 07:08:00 Paula Rowe [facility] CT CHEST PULMONARY 2022-05-13 06:13:34 Paula Rowe [facility] ANGIOGRAM Medical Branch XR CHEST 1 VW 2022-05-13 04:42:45 Paula Rowe [facility] BLOOD CULTURE SCREEN 2022-05-13 04:10:00 Paula [facility]e [facility] TROPONIN I 2022-05-13 04:10:00 Paula Rowe [facility] COMP. METABOLIC PANEL 2022-05-13 04:10:00 Paula Rowe [facility] ([id number]) Medical Branch CBC WITH DIFF 2022-05-13 04:10:00 Paula Rowe [facility] PROTHROMBIN TIME / INR 2022-05-13 04:10:00 Paula Rowe [facility] ACTIVATED PARTIAL 2022-05-13 04:10:00 Puala Rowe [facility] THRFormerly [facility] RAPID INFLUENZA A/B 2022-05-13 04:10:00 Paula Rowe [facility] N-TERMINAL PRO-BNP 2022-05-13 04:10:00 Paula Rowe [facility] COVID-19 (ID NOW RAPID 2022-05-13 04:10:00 Paula Rowe [facility] TESTING) Medical Branch AC PANEL 21 + LACTIC ACID 2022-05-02 06:08:00 [facility]W 2022-05-02 05:52:00 Sanjay Henry [facility] URINALYSIS 2022-05-02 05:44:00 Sanjay Henry [facility] MAGNESIUM 2022-05-02 05:43:00 Sanjay Henry [facility] TROPONIN I 2022-05-02 05:43:00 Sanjay Henry [facility] COMP. METABOLIC PANEL 2022-05-02 05:43:00 Sanjay Henry [facility] ([id number]) Medical [place] CBC WITH DIFF 2022-05-02 05:43:00 Sanjay Henry Janel [facility] N-TERMINAL PRO-BNP 2022-05-02 05:43:00 Sanjay Henry [facility] CONSENT/REFUSAL FOR 2022-05-02 05:16:55 Doctor Unassigned, [facility] DIAGNOSIS AND TREATMENT [place] Medical Branch COVID-19 (ID NOW RAPID 2022-04-29 03:43:00 Paula Rowe [facility] TESTING) [facility] CT ABDOMEN PELVIS WO 2022-04-29 03:38:06 Paula Rowe [facility] CONTRAST [facility] XR CHEST 1 VW 2022-04-29 03:23:24 Paula Rowe [facility] TROPONIN I 2022-04-29 02:49:00 Paula Rowe [facility] COMP. METABOLIC PANEL 2022-04-29 02:49:00 Paula Rowe [facility] ([id number]) Medical Branch CBC WITH DIFF 2022-04-29 02:49:00 Paula Rowe [facility] PROTHROMBIN TIME / INR 2022-04-29 02:49:00 Paula Rowe [facility] ACTIVATED PARTIAL 2022-04-29 02:49:00 Paula Rowe [facility] THRMPLAS SHREYA [facility] N-TERMINAL PRO-BNP 2022-04-29 02:49:00 Paula Rowe [facility] POCT GLUCOSE (AUTOMATED) 2022-02-27 20:30:00 Kevin Lebron [facility] POCT GLUCOSE (AUTOMATED) 2022-02-27 16:16:00 Kevin Lebron [facility] POCT GLUCOSE (AUTOMATED) 2022-02-27 12:27:00 Kevin Lebron [facility] POCT GLUCOSE (AUTOMATED) 2022-02-26 21:42:00 Kevin Lebron [facility] POCT GLUCOSE (AUTOMATED) 2022-02-26 17:49:00 Yasmine [facility]OMATED) 2022-02-26 14:27:00 Kevin Lebron Nimco [facility] MAGNESIUM 2022-02-26 08:50:00 Artie Rodriguez [facility] BASIC METABOLIC PANEL 2022-02-26 08:50:00 Artie Rodriguez [facility] (NA, K, CL, CO2, GLUCOSE, Medica l Branch BUN, CREATININE, CA) POCT GLUCOSE (AUTOMATED) 2022-02-26 01:26:00 Kevin Lebron Nimco [facility] POCT GLUCOSE (AUTOMATED) 2022-02-25 20:40:00 Kevin Lebron Nimco [facility] POCT GLUCOSE (AUTOMATED) 2022-02-25 16:39:00 Kevin Lebron Nim[facility] ACUTE CARE ARTERIAL BLOOD 2022-02-25 14:04:00 [facility] 2022-02-25 12:51:00 Kevin Lebron [facility] PHOSPHORUS 2022-02-25 11:01:00 Lam [facility] MAGNESIUM 2022-02-25 11:01[facility]00 [facility] 2022-02-25 11:01:00 [facility] ([facility], K, CL, CO2, GLUCOSE, Medica l Branch BUN, CREATININE, CA) POCT GLUCOSE (AUTOMATED) 2022-02-25 01:24:00 Kevin Lebron [facility] POCT GLUCOSE (AUTOMATED) 2022-02-24 20:49:00 Kevin Lebron Nimco [facility] POCT GLUCOSE (AUTOMATED) 2022-02-24 16:52:00 Kevin Lebron [facility] ACUTE CARE ARTERIAL BLOOD 2022-02-24 16:42:00 [facility] PO[facility]SE (AUTOMATED) 2022-02-24 13:24:00 [facility] [facility] TROPONIN I 2022-02-24 12:34:00 Lam [facility] BASIC METABOLIC PANEL 2022-02-24 12:34:00 Lam [facility] (NA, K, CL, CO2, GLUCOSE, Medica l Branch BUN, CREATININE, CA) HB ECG ROUTINE & RHYTHM 2022-02-24 12:23:17 Lam [facility] LACTIC ACID WHOLE BLOOD 2022-02-24 03:13:00 Britt Gabriel [facility] POCT GLUCOSE (AUTOMATED) 2022-02-24 01:20:00 Kevin Lebron [facility] XR KUB 2022-02-24 00:31:00 Dana [facility] POCT GLUCOSE (AUTOMATED) 2022-02-23 22:34:00 Kevin Lebron [facility] POCT GLUCOSE (AUTOMATED) 2022-02-23 21:46:00 Kevin Lebron [facility] XR CHEST 1 VW 2022-02-23 19:26:00 Dana [facility] AC PANEL 20 + LACTIC ACID 2022-02-23 18:02:00 Isma Cortez [facility] POCT GLUCOSE (AUTOMATED) 2022-02-23 17:19:00 Kevin Lebron [facility] POCT GLUCOSE (AUTOMATED) 2022-02-23 13:22:00 Kevin Lebron [facility] POCT GLUCOSE (AUTOMATED) 2022-02-22 21:55:00 Kevin Lebron [facility] POCT GLUCOSE (AUTOMATED) 2022-02-22 18:22:00 Yasmine [facility] CBC WITH DIFF 2022-02-22 11:32:00 Joshua [facility] MAGNESIUM 2022-02-22 11:31:00 Joshua [facility] BASIC METABOLIC PANEL 2022-02-22 11:31:00 Joshua [facility] (NA, K, CL, CO2, GLUCOSE, Medica l Branch BUN, CREATININE, CA) XR CHEST 1 VW 2022-02-22 09:34:00 Joshua [facility] POCT GLUCOSE (AUTOMATED) 2022-02-22 01:20:00 Kevin Lebron [facility] POCT GLUCOSE (AUTOMATED) 2022-02-21 21:53:00 Kevin Lebron [facility] CBC WITHOUT DIFF 2022-02-21 15:46:00 [facility] ([facility]OMATED) 2022-02-21 14:26:00 Kevin Lebron [facility] URINALYSIS 2022-02-21 08:27:00 Joshua [facility] URINE CULTURE 2022-02-21 08:27:00 Joshua [facility] MAGNESIUM 2022-02-21 08:06:00 Joshua [facility] BASIC METABOLIC PANEL 2022-02-21 08:06:00 Joshua [facility] (NA, K, CL, CO2, GLUCOSE, Medica l Branch BUN, CREATININE, CA) CBC WITH DIFF 2022-02-21 08:06:00 Joshua [facility] MRSA / MSSA SCREEN BY 2022-02-21 03:21:00 Chase [facility] POCT GLUCOSE (AUTOMATED) 2022-02-21 02:31:00 Kevin Lebron [facility] BLOOD CULTURE SCREEN 2022-02-21 01:58:00 [facility] 2022-02-21 01:49:00 Joshua [facility] XR CHEST 1 VW 2022-02-20 23:44:00 Albert Brown [facility] ACUTE CARE ARTERIAL BLOOD 2022-02-20 23:23:00 Chase Ny [facility] XR CHEST 1 VW 2022-02-20 20:39:00 Paula Rowe [facility] TROPONIN I 2022-02-20 20:17:00 Rowe, Paula [facility] COMP. METABOLIC PANEL 2022-02-20 20:17:00 Paula Rowe [facility] ([id number]) Medical Branch CBC WITH DIFF 2022-02-20 20:17:00 Paula Rowe [facility] PROTHROMBIN TIME / INR 2022-02-20 20:17:00 Paula Rowe [facility] ACTIVATED PARTIAL 2022-02-20 20:17:00 [facility] THRM[facility] SHREYA [facility] N-TERMINAL PRO-BNP 2022-02-20 20:17:00 Paula Rowe [facility] COVID-19 (ID NOW RAPID 2022-02-20 20:07:00 Paula Rowe [facility] TESTING) Medical Branch LAB ONLY COVID 2022-02-20 20:07:00 Paula Rowe [facility] INTERPRETATION [facility] HB ECG ROUTINE & RHYTHM 2022-02-20 20:06:49 Paula Rowe [facility] CONSENT/REFUSAL FOR 2022-02-20 19:58:43 Doctor Unassigned, [facility]-20 05:01:00 Doctor Unajoseigned, [facility] DOCUMENTS [place] [facility] HOSPITAL ADMISSION 2022-02-20 05:01:00 Doctor Unazeke, [facility] POCT GLUCOSE (AUTOMATED) 2022-02-17 21:44:00 Yvonne Pantojaigi U [facility] POCT GLUCOSE (AUTOMATED) 2022-02-17 17:09:00 Yvonne Pantojaigi U [facility] POCT GLUCOSE (AUTOMATED) 2022-02-17 13:06:00 Valeriano [facility] XR CHEST 1 VW 2022-02-17 11:51:08 [facility] MAGNESIUM 2022-02-17 09:13:00 [facility] BASIC METABOLIC PANEL 2022-02-17 09:13:00 Kayla Armstrong [facility] (NA, K, CL, CO2, GLUCOSE, Medica l Branch BUN, CREATININE, CA) CBC WITH DIFF 2022-02-17 09:13:00 Kayla Armstrong o f [facility] ACUTE CARE ARTERIAL BLOOD 2022-02-17 09:02:00 [facility]) 2022-02-17 00:49:00 Terminella, Valeriano [facility] XR CHEST 1 VW 2022-02-16 23:15:00 MurdockRoberto [facility] POCT GLUCOSE (AUTOMATED) 2022-02-16 21:46:00 Terminella, Valeriano [facility] POCT GLUCOSE (AUTOMATED) 2022-02-16 16:59:00 Terminella, Valeriano [facility] POCT GLUCOSE (AUTOMATED) 2022-02-16 13:05:00 Terminella, Valeriano [facility] POCT GLUCOSE (AUTOMATED) 2022-02-16 08:32:00 Terminella, Valeriano [facility] POCT GLUCOSE (AUTOMATED) 2022-02-16 04:29:00 Terminella, Valeriano [facility] POCT GLUCOSE (AUTOMATED) 2022-02-16 00:39:00 Terminella, Valeriano [facility] POCT GLUCOSE (AUTOMATED) 2022-02-15 21:14:00 Terminella, Valeriano [facility] POCT GLUCOSE (AUTOMATED) 2022-02-15 16:58:00 Terminella, Valeriano [facility] POCT GLUCOSE (AUTOMATED) 2022-02-15 12:45:00 Terminella, Valeriano [facility] POCT GLUCOSE (AUTOMATED) 2022-02-15 08:02:00 Terminella, Valeriano [facility] MAGNESIUM 2022-02-15 07:56:00 MurdockRoberto gillette [facility] COMP. METABOLIC PANEL 2022-02-15 07:56:00 [id number] CBC WITHOUT DIFF 2022-02-15 07:56:00 [facility] POCT GLUCOSE (AUTOMATED) 2022-02-15 04:15:00 Terminella, Valeriano [facility] POCT GLUCOSE (AUTOMATED) 2022-02-15 00:48:00 Terminella, Valeriano [facility] POCT GLUCOSE (AUTOMATED) 2022-02-14 21:22:00 Terminella, Valeriano [facility] POCT GLUCOSE (AUTOMATED) 2022-02-14 19:37:00 Terminella, Valeriano [facility] POCT GLUCOSE (AUTOMATED) 2022-02-14 16:28:00 Terminella, Valeriano [facility] POCT GLUCOSE (AUTOMATED) 2022-02-14 14:17:00 Terminella, Valeriano [facility] XR CHEST 1 VW 2022-02-14 11:42:00 Kayla Armstrong [facility] MAGNESIUM 2022-02-14 09:56:00 [facility] COMP. METABOLIC PANEL 2022-02-14 09:56:00 Kayla Armstrong [facility] ([id number]) [facility] CBC WITH DIFF 2022-02-14 09:56:00 [facility] ACUTE CARE ARTERIAL BLOOD 2022-02-14 08:33:00 [facility]) 2022-02-14 08:17:00 Terminella, Valeriano [facility] POCT GLUCOSE (AUTOMATED) 2022-02-14 04:25:00 Terminella, Valeriano [facility] EKG-12 LEAD 2022-02-14 04:11:18 Doctor Unassigned, [facility] [place] [facility] POCT GLUCOSE (AUTOMATED) 2022-02-14 00:55:00 Terminella, Valeriano [facility] POCT GLUCOSE (AUTOMATED) 2022-02-13 22:29:00 Terminella, Valeriano [facility] POCT GLUCOSE (AUTOMATED) 2022-02-13 17:29:00 Terminella, [facility]) 2022-02-13 15:52:00 Terminella, [facility] ARTERIAL BLOOD 2022-02-13 14:22:00 Kay[facility] POCT GLUCOSE (AUTOMATED) 2022-02-13 14:07:00 Terminella, Val[facility]iano [facility] DUPLEX VENOUS LEGS 2022-02-13 14:00:43 MurdockRoberto [facility] BILATERAL - BY VASCULAR [facility] LAB POCT GLUCOSE (AUTOMATED) 2022-02-13 12:45:00 Terminella, [facility]iano [facility] PO[facility] GLUCOSE (AUTOMATED) 2022-02-13 11:43:00 Terminella [facility] 2022-02-13 10:33:00 Scarlett [facility] BASIC METABOLIC PANEL 2022-02-13 10:33:00 Murdock, Roberto Un [facility] (NA, K, CL, CO2, GLUCOSE, Medica l Branch BUN, CREATININE, CA) CBC WITH DIFF 2022-02-13 10:33:00 January Pantojai [facility] POCT GLUCOSE (AUTOMATED) 2022-02-13 09:42:00 Terminella, Valeriano [facility] POCT GLUCOSE (AUTOMATED) 2022-02-13 08:46:00 Terminella, Valeriano [facility] POCT GLUCOSE (AUTOMATED) 2022-02-13 07:59:00 Terminella, Valeriano [facility] POCT GLUCOSE (AUTOMATED) 2022-02-13 06:56:00 Terminella, Valeriano [facility] POCT GLUCOSE (AUTOMATED) 2022-02-13 05:57:00 Terminella, Valeriano [facility] POCT GLUCOSE (AUTOMATED) 2022-02-13 03:36:00 Terminella, Valeriano [facility] BASIC METABOLIC PANEL 2022-02-13 03:30:00 [facility]Roberto [facility] ([facility], K, CL, CO2, GLUCOSE, Medica l Branch BUN, CREATININE, CA) POCT GLUCOSE (AUTOMATED) 2022-02-13 02:46:00 Terminella, Valeriano [facility] POCT GLUCOSE (AUTOMATED) 2022-02-13 01:37:00 Terminella, Valeriano [facility] POCT GLUCOSE (AUTOMATED) 2022-02-13 00:34:00 Terminella, Valeriano [facility] POCT GLUCOSE (AUTOMATED) 2022-02-12 23:25:00 Terminella, Valeriano [facility] POCT GLUCOSE (AUTOMATED) 2022-02-12 22:20:00 Terminella, Valeriano [facility] POCT GLUCOSE (AUTOMATED) 2022-02-12 21:02:00 Terminella, Val[facility]iano [facility] BASIC METABOLIC PANEL 2022-02-12 20:39:00 Roberto [facility]dock [facility] [place] (NA, K, CL, CO2, GLUCOSE, Medica l Branch BUN, CREATININE, CA) POCT GLUCOSE (AUTOMATED) 2022-02-12 20:02:00 Terminella, Valeriano [facility] POCT GLUCOSE (AUTOMATED) 2022-02-12 19:06:00 Terminella, Valeriano [facility] POCT GLUCOSE (AUTOMATED) 2022-02-12 18:09:00 Terminella, Valeriano [facility] POCT GLUCOSE (AUTOMATED) 2022-02-12 17:17:00 Terminella, Valeriano U niversity [facility] SPUTUM CULTURE 2022-02-12 16:29:00 Terminella Valeriano [facility] BASIC METABOLIC PANEL 2022-02-12 16:16:00 Kayla Armstrong [facility] (NA, K, CL, CO2, GLUCOSE, Medica l Branch BUN, CREATININE, CA) POCT GLUCOSE (AUTOMATED) 2022-02-12 16:11:00 Terminella, Valeriano U [facility] POCT GLUCOSE (AUTOMATED) 2022-02-12 14:14:00 Terminstony [facility] POCT GLUCOSE (AUTOMATED) 2022-02-12 13:17:00 Termingamaliel [facility] POCT GLUCOSE (AUTOMATED) 2022-02-12 12:42:00 TerminJanuary [facility]Mary [facility] BASIC METABOLIC PANEL 2022-02-12 12:18:00 [facility] (NA, K, CL, CO2, GLUCOSE, Medica l Branch BUN, CREATININE, CA) POCT GLUCOSE (AUTOMATED) 2022-02-12 12:17:00 Termingamaliel [facility] POCT GLUCOSE (AUTOMATED) 2022-02-12 11:15:00 Termingamaliel [facility] POCT GLUCOSE (AUTOMATED) 2022-02-12 10:12:00 Termingamaliel [facility] POCT GLUCOSE (AUTOMATED) 2022-02-12 09:12:00 [facility] MRSA / MSSA SCREEN BY 2022-02-12 08:23:00 [facility] PCR, NARES [facility] AC PANEL 20 + LACTIC ACID 2022-02-12 08:22:00 Nareshstony [facility] PHOSPHORUS 2022-02-12 08:21:00 [facility] MAGNESIUM 2022-02-12 08:21:00 [facility] OSMOLALITY, SERUM OR 2022-02-12 08:21:00 [facility] PLASMA [facility] BETA HYDROXY-BUTYRATE 2022-02-12 08:21:00 [facility] BASIC METABOLIC PANEL 2022-02-12 08:21:00 [facility] (NA, K, CL, CO2, GLUCOSE, Medica l Branch BUN, CREATININE, CA) CBC WITH DIFF 2022-02-12 08:21:00 Valeriano Pantoja [facility] GLYCOSYLATED HEMOGLOBIN 2022-02-12 08:21:00 Valeriano Pantoja [facility] (A1C) [facility] POCT GLUCOSE (AUTOMATED) 2022-02-12 04:53:00 Paula Rowe [facility] URINE DRUG (IMMUNOASSAY) 2022-02-12 04:24:00 Paula Rowe [facility] nc SCREEN W/O REFLEX URINALYSIS 2022-02-12 04:23:00 Paula Rowe [facility] POCT GLUCOSE (AUTOMATED) 2022-02-12 04:12:00 Paula Rowe [facility] CT CHEST PULMONARY 2022-02-12 02:41:40 Paula Rowe [facility] ANGIOGRAM [facility] CT ABDOMEN PELVIS W 2022-02-12 02:39:36 Paula Rowe [facility] CONTRAST [facility] CT HEAD WO CONTRAST 2022-02-12 02:39:36 Paula Rowe [facility] XR CHEST 1 VW 2022-02-12 02:08:38 Paula Rowe [facility] AC PANEL 20 + LACTIC ACID 2022-02-12 01:59:00 Paula Rowe [facility] AMMONIA, PLASMA 2022-02-12 01:18:00 Paula Rowe [facility] BLOOD CULTURE SCREEN 2022-02-12 01:16:00 [facility] COVID-19 (ID NOW RAPID 2022-02-12 01:16:00 Paula Rowe [facility] TESTING) [facility] LAB ONLY COVID 2022-02-12 01:16:00 Paula Rowe [facility] INTERPRETATION [facility] BLOOD CULTURE SCREEN 2022-02-12 01:12:00 Paula [facility] TROPONIN I 2022-02-12 01:12:00 Paula Rowe [facility] FREE T4 2022-02-12 01:12:00 Paula Rowe [facility] THYROID STIMULATING 2022-02-12 01:12:00 Paula Rowe [facility] HORMONE [facility] COMP. METABOLIC PANEL 2022-02-12 01:12:00 Paula Rowe [facility] ([id number]) Medical Branch ETHANOL 2022-02-12 01:12:00 Paula Rowe [facility] CBC WITH DIFF 2022-02-12 01:12:00 Paula Rowe [facility] PROTHROMBIN TIME / INR 2022-02-12 01:12:00 Paula Rowe [facility] ACTIVATED PARTIAL 2022-02-12 01:12:00 [facility] THRMPLAS SHREYA [facility] N-TERMINAL PRO-BNP 2022-02-12 01:12:00 Paula Rowe [facility] EKG-12 LEAD 2022-02-12 01:06:16 Doctor Unassigned, [facility] POCT GLUCOSE (AUTOMATED) 2022-02-12 00:57:00 Paula Rowe [facility] ASSIGNMENT OF BENEFITS 2022-02-12 00:53:44 Doctor Unassigned, [facility] CONSENT/REFUSAL FOR 2022-02-12 00:53:30 Doctor Unasssheila, [facility] DIAGNOSIS AND TREATMENT [facility] EMERGENCY DEPARTMENT 2022-02-11 05:01:00 Doctor Unasssheila, [facility] DOCUMENTS [facility] POCT GLUCOSE (AUTOMATED) 2022-01-31 16:09:00 Jonas Hernandez [facility] POCT GLUCOSE (AUTOMATED) 2022-01-31 12:37:00 Jonas Hernandez [facility] PHOSPHORUS 2022-01-31 09:02:00 Luz Maria [facility] MAGNESIUM 2022-01-31 09:02:00 Luz Maria [facility] BASIC METABOLIC PANEL 2022-01-31 09:02:00 Luz Maria [facility] (NA, K, CL, CO2, GLUCOSE, Medica l Branch BUN, CREATININE, CA) ACUTE CARE VENOUS BLOOD 2022-01-31 09:02:00 Luz Maria [facility] GAS [facility] N-TERMINAL PRO-BNP 2022-01-31 09:02:[address] [facility] POCT GLUCOSE (AUTOMATED) 2022-01-30 21:20:00 Jonas Hernandez [facility] POCT GLUCOSE (AUTOMATED) 2022-01-30 16:58:00 Jonas Hernandez [facility] POCT GLUCOSE (AUTOMATED) 2022-01-30 13:58:00 Jonas Hernandez [facility] POCT GLUCOSE (AUTOMATED) 2022-01-30 13:11:00 Jonas Hernandez [facility] COMP. METABOLIC PANEL 2022-01-30 09:22:00 Jonas Hernandez [facility] ([id number]) [facility] CBC WITH DIFF 2022-01-30 09:22:00 Luz Maria [facility] N-TERMINAL PRO-BNP 2022-01-30 09:22:00 Jonas Hernandez [facility] ACUTE CARE VENOUS BLOOD 2022-01-30 09:21:00 Jonas Hernandez [facility] POCT GLUCOSE (AUTOMATED) 2022-01-30 03:01:00 Jonas Hernandez [facility] POCT GLUCOSE (AUTOMATED) 2022-01-29 21:03:00 Jonas Hernandez [facility] POCT GLUCOSE (AUTOMATED) 2022-01-29 16:05:00 Jonas Hernandez [facility] POCT GLUCOSE (AUTOMATED) 2022-01-29 15:13:00 Jonas Hernandez [facility] SPUTUM CULTURE 2022-01-29 13:06:00 Luz Maria [facility] POCT GLUCOSE (AUTOMATED) 2022-01-29 12:46:00 Jonas Hernandez [facility] PHOSPHORUS 2022-01-29 09:33:00 Luz Maria [facility] MAGNESIUM 2022-01-29 09:33:00 Mary agus [facility] COMP. METABOLIC PANEL 2022-01-29 09:33:00 Jonas Hernandez [facility] ([id number]) Medical Branch CBC WITH DIFF 2022-01-29 09:33:00 Luz Maria [facility] N-TERMINAL PRO-BNP 2022-01-29 09:33:00 Jonas Hernandez [facility] ACUTE CARE VENOUS BLOOD 2022-01-29 09:32:00 Jonas Hernandez [facility] GAS [facility] POCT GLUCOSE (AUTOMATED) 2022-01-29 02:58:00 Jonas Hernandez [facility] POCT GLUCOSE (AUTOMATED) 2022-01-29 01:35:00 Jonas Hernandez [facility] POCT GLUCOSE (AUTOMATED) 2022-01-28 21:20:00 Jonas Hernandez [facility] XR CHEST 1 VW 2022-01-28 18:54:18 Luz Maria [facility] PROTEIN CREAT RATIO URINE 2022-01-28 16:54:00 Dilan Coffey [facility] URIC ACID 2022-01-28 16:49:00 Dilan Coffey [facility] TROPONIN I 2022-01-28 16:49:00 Mary agus [facility] TRANSTHORACIC ECHO (TTE) 2022-01-28 15:37:00 Jonas Hernandez [facility] COMPLETE W/ CONTRAST Medical [facility] DUPLEX VENOUS LEGS 2022-01-28 14:42:22 Jonas Hernandez [facility] BILATERAL - BY VASCULAR [facility] LAB POCT GLUCOSE (AUTOMATED) 2022-01-28 13:57:00 Jonas Hernandez [facility] POCT GLUCOSE (AUTOMATED) 2022-01-28 12:58:00 Jonas Hernandez [facility] TROPONIN I 2022-01-28 11:46:[address] [facility] IRON PANEL 2022-01-28 11:46:00 Jonas Hernandez [facility] SEDIMENTATION RATE 2022-01-28 11:46:00 Mary, [facility] N-TERMINAL PRO-BNP 2022-01-28 11:46:[address] [facility] PHOSPHORUS 2022-01-28 11:45:[address] [facility] CREATINE KINASE 2022-01-28 11:45:[address] [facility] URIC ACID 2022-01-28 11:45:[address] [facility] MAGNESIUM 2022-01-28 11:45:[address] [facility] FERRITIN SERUM 2022-01-28 11:45:[address] [facility] VITAMIN B12, LEVEL 2022-01-28 11:45:00 Mary [facility] TROPONIN I 2022-01-28 11:45:[address] [facility] THYROID STIMULATING 2022-01-28 11:45:00 Mary agus [facility] HORMONE [facility] COMP. METABOLIC PANEL 2022-01-28 11:45:00 Jonas Hernandez [facility] ([id number]) [facility] LIPID PANEL ([id number])(TOTAL 2022-01-28 11:45:00 Jonas Hernandez [facility] CHOLESTEROL, [facility] TRIGLYCERIDES, HDL) ACUTE CARE VENOUS BLOOD 2022-01-28 11:45:00 Jonas Hernandez [facility] GAS [facility] N-TERMINAL PRO-BNP 2022-01-28 11:45:00 Mary agus [facility] VITAMIN D, 25-OH 2022-01-28 11:45:00 Mary [facility] PROCALCITONIN 2022-01-28 11:45:[address] [facility] OSMOLALITY URINE 2022-01-28 08:55:00 Mary [facility] URINALYSIS 2022-01-28 08:55:[address] [facility] URINE CULTURE 2022-01-28 08:55:[address] [facility] UREA NITROGEN, URINE 2022-01-28 08:55:00 Mary agus [facility] Medical Branch SODIUM, URINE RANDOM 2022-01-28 08:55:00 Mary [facility] PROTEIN CREAT RATIO URINE 2022-01-28 08:55:[address] [facility] XR CHEST 1 VW 2022-01-28 02:23:00 Paula Rowe [facility] TROPONIN I 2022-01-28 02:09:00 Paula Rowe [facility] COMP. METABOLIC PANEL 2022-01-28 02:09:00 Paula Rowe [facility] ([id number]) Medical [place] CBC WITH DIFF 2022-01-28 02:09:00 Paula Rowe [facility] GLYCOSYLATED HEMOGLOBIN 2022-01-28 02:09:00 Mary [facility] (A1C) [facility] PROTHROMBIN TIME / INR 2022-01-28 02:09:00 Paula Rowe [facility] [place] ACTIVATED PARTIAL 2022-01-28 02:09:00 [facility] THRMPLAS SHREYA [facility] N-TERMINAL PRO-BNP 2022-01-28 02:09:00 Paula Rowe [facility] Medical [place] COVID-19 (ID NOW RAPID 2022-01-28 02:09:00 Paula Rowe [facility] TESTING) Medical Branch LAB ONLY COVID 2022-01-28 02:09:00 Paula Rowe [facility] INTERPRETATION [facility] HB ECG ROUTINE & RHYTHM 2022-01-28 01:47:33 Paula Rowe [facility] STRIP Medical Branch NOTICE OF PRIVACY 2022-01-28 01:38:34 Doctor Unassigned, [facility] PRACTICES [place] [facility] CONSENT/REFUSAL FOR 2022-01-28 01:37:59 Doctor Unasssheila, [facility] DIAGNOSIS AND TREATMENT [place] [facility] COMP. METABOLIC PANEL 2022-01-12 23:24:00 Joslyn Ruelas [facility] ([id number]) Medical [place] CBC WITH DIFF 2022-01-12 23:24:00 Joslyn Ruelas [facility] XR CHEST 1 VW 2022-01-12 23:20:00 Joslyn Ruelas [facility] AC PANEL 21 + LACTIC ACID 2022-01-12 23:14:00 Joslyn Ruelas [facility] POCT GLUCOSE (AUTOMATED) 2022-01-12 17:48:00 Moulin, [facility] POCT GLUCOSE (AUTOMATED) 2022-01-12 13:22:00 Moulin, Cory [facility] POCT GLUCOSE (AUTOMATED) 2022-01-12 05:51:00 Moulin, Cory [facility] POCT GLUCOSE (AUTOMATED) 2022-01-11 23:02:00 Moulin, Cory [place] [facility] POCT GLUCOSE (AUTOMATED) 2022-01-11 17:20:00 Moulin, Cory Uni [facility] PO[facility] GLUCOSE (AUTOMATED) 2022-01-11 13:08:00 Moulin, Cory Nimco [facility] PO[facility] GLUCOSE (AUTOMATED) 2022-01-11 11:35:00 Moulin, Cory Nimco [facility] MAGNESIUM 2022-01-11 10:46:00 Artie [facility] BASIC METABOLIC PANEL 2022-01-11 10:46:00 Dawood Alva [facility] (NA, K, CL, CO2, GLUCOSE, Medica l Branch BUN, CREATININE, CA) CBC WITH DIFF 2022-01-11 10:46:00 Artie Dawodo [facility] POCT GLUCOSE (AUTOMATED) 2022-01-11 04:13:00 Moulin, Cory Uni [facility] PO[facility]UCOSE (AUTOMATED) 2022-01-10 22:36:00 Moulin, Cory Nimco [facility] PO[facility]SE (AUTOMATED) 2022-01-10 16:44:00 Moulin, Cory [facility] PO[facility]SE (AUTOMATED) 2022-01-10 13:02:00 Moulin, Cory [facility]SE (AUTOMATED) 2022-01-10 10:44:00 Moulin, Cory [facility] MAGNES[facility]UM 2022-01-10 07:19:00 Cam [facility] BASIC METABOLIC PANEL 2022-01-10 07:19:00 Cam [facility] (NA, K, CL, CO2, GLUCOSE, Medica l Branch BUN, CREATININE, CA) CBC WITH DIFF 2022-01-10 07:19:00 Cam [facility] POCT GLUCOSE (AUTOMATED) 2022-01-10 04:48:00 Moulin, Cory [facility] PO[facility]SE (AUTOMATED) 2022-01-09 17:23:00 Moulin, Cory [facility] PO[facility]UCOSE (AUTOMATED) 2022-01-09 12:46:00 Moulin, Cory [facility] BASIC METABOLIC PANEL 2022-01-09 10:50:00 [facility] ([facility], K, CL, CO2, GLUCOSE, Medica l Branch BUN, CREATININE, CA) CBC WITH DIFF 2022-01-09 10:50:00 Dawood Alva [facility] POCT GLUCOSE (AUTOMATED) 2022-01-09 10:42:00 Moulin, Cory [facility] PO[facility]SE (AUTOMATED) 2022-01-09 04:21:00 Moulin, Cory [facility] POCT GLUCOSE (AUTOMATED) 2022-01-08 23:17:00 Moulin, Cory [facility] PO[facility]UCOSE (AUTOMATED) 2022-01-08 18:14:00 Moulin, Cory [facility] PO[facility]UCOSE (AUTOMATED) 2022-01-08 13:34:00 Moulin, Cory Uni versity [facility] POCT GLUCOSE (AUTOMATED) 2022-01-08 10:57:00 Moulin, Cory Nimco [facility] BASIC METABOLIC PANEL 2022-01-08 10:48:00 Artie [facility] (NA, K, CL, CO2, GLUCOSE, Medica l Branch BUN, CREATININE, CA) CBC WITH DIFF 2022-01-08 10:48:00 [facility] POCT GLUCOSE (AUTOMATED) 2022-01-08 05:43:00 Moulin, Cory [facility] POCT GLUCOSE (AUTOMATED) 2022-01-07 21:25:00 Moulin, Cory [facility] POCT GLUCOSE (AUTOMATED) 2022-01-07 16:34:00 Moulin, Cory [facility] ABG+COOX+NA+K+GLU+CA2+ 2022-01-07 15:40:00 Abu Shahla Stack [facility] POCT GLUCOSE (AUTOMATED) 2022-01-07 13:07:00 Moulin, Cory [facility] BASIC METABOLIC PANEL 2022-01-07 07:14:00 Ahmerlyn [facility] (NA, K, CL, CO2, GLUCOSE, Medica l Branch BUN, CREATININE, CA) CBC WITH DIFF 2022-01-07 07:14:00 [facility] POCT GLUCOSE (AUTOMATED) 2022-01-07 05:53:00 Moulin, Cory [facility] POCT GLUCOSE (AUTOMATED) 2022-01-06 23:35:00 Moulin, Cory [facility] POCT GLUCOSE (AUTOMATED) 2022-01-06 22:16:00 Moulin, Cory [facility] XR CHEST 1 VW 2022-01-06 21:37:00 Abu Shahla Stack [facility] POCT GLUCOSE (AUTOMATED) 2022-01-06 17:02:00 Moulin, Cory [facility] POCT GLUCOSE (AUTOMATED) 2022-01-06 13:41:00 MoulinCory [facility] PHOSPHORUS 2022-01-06 09:21:00 AhDawood zuleta [facility] MAGNESIUM 2022-01-06 09:21:00 [facility] BASIC METABOLIC PANEL 2022-01-06 09:21:00 Dawood Alva [facility] (NA, K, CL, CO2, GLUCOSE, Medica l Branch BUN, CREATININE, CA) CBC WITH DIFF 2022-01-06 09:21:00 [facility] POCT GLUCOSE (AUTOMATED) 2022-01-05 20:44:00 Moulin, Cory [facility] XR ABDOMEN 1 VW 2022-01-05 17:55:00 Shahla Andrade [facility] POCT GLUCOSE (AUTOMATED) 2022-01-05 16:54:00 Moulin, Cory [facility] POCT GLUCOSE (AUTOMATED) 2022-01-05 13:09:00 MoulinCory [facility] PHOSPHORUS 2022-01-05 09:06:00 Moulin [facility] MAGNESIUM 2022-01-05 09:06:00 Moulin [facility] BASIC METABOLIC PANEL 2022-01-05 09:06:00 Jaye [facility] (NA, K, CL, CO2, GLUCOSE, Medica l Branch BUN, CREATININE, CA) CBC WITH DIFF 2022-01-05 09:06:00 Jaye [facility] POCT GLUCOSE (AUTOMATED) 2022-01-05 05:07:00 MoulinCory [facility] POCT GLUCOSE (AUTOMATED) 2022-01-04 22:10:[address] [facility] POCT GLUCOSE (AUTOMATED) 2022-01-04 17:14:[address] [facility] POCT GLUCOSE (AUTOMATED) 2022-01-04 11:15:00 MoCory lucio [facility] PHOSPHORUS 2022-01-04 10:42:00 Jenifer [facility] MAGNESIUM 2022-01-04 10:42:00 Jenifer [facility] BASIC METABOLIC PANEL 2022-01-04 10:42:00 Jenifer [facility] (NA, K, CL, CO2, GLUCOSE, Medica l Branch BUN, CREATININE, CA) VANCOMYCIN TROUGH 2022-01-04 10:42:00 Moulin [facility] CBC WITH DIFF 2022-01-04 10:42:[address] [facility] CT ABDOMEN PELVIS W 2022-01-04 09:03:00 Shahla Andrade [facility] POCT GLUCOSE (AUTOMATED) 2022-01-04 06:25:00 Moulin, Cory [facility] POCT GLUCOSE (AUTOMATED) 2022-01-03 21:21:00 Moulin, Cory [facility] XR CHEST 1 VW 2022-01-03 20:48:16 Abu Shahla Stack [facility] POCT GLUCOSE (AUTOMATED) 2022-01-03 16:50:00 Moulin, Cory [facility] POCT GLUCOSE (AUTOMATED) 2022-01-03 12:59:00 Moulin, Cory [facility] POCT GLUCOSE (AUTOMATED) 2022-01-03 10:17:00 Moulin, Cory [facility] AC PANEL 20 + LACTIC ACID 2022-01-03 10:15:00 Moulin, Cory [facility] MAGNESIUM 2022-01-03 08:54:00 Moulin, Cory [facility] BASIC METABOLIC PANEL 2022-01-03 08:54:00 Moulin, Cory [facility] (NA, K, CL, CO2, GLUCOSE, Medica l Branch BUN, CREATININE, CA) CBC WITH DIFF 2022-01-03 08:54:00 Moulin, Cory [facility] POCT GLUCOSE (AUTOMATED) 2022-01-03 04:48:00 Moulin, [facility] POCT GLUCOSE (AUTOMATED) 2022-01-02 22:15:00 Monaveed, Cory [facility] SPUTUM CULTURE 2022-01-02 19:39:[address] [facility] XR KUB 2022-01-02 18:17:[address] [facility] XR KUB 2022-01-02 17:07:05 Abu Phillip [facility] POCT GLUCOSE (AUTOMATED) 2022-01-02 16:26:00 Moulin, Cory [facility] CT HEAD WO CONTRAST 2022-01-02 15:49:23 Shahla Andrade [facility] XR CHEST 1 VW 2022-01-02 13:45:16 Shahla Andrade [facility] AC PANEL 20 + LACTIC ACID 2022-01-02 12:37:00 Shahla Andrade [facility] POCT GLUCOSE (AUTOMATED) 2022-01-02 12:26:00 Cory Cee [facility] BASIC METABOLIC PANEL 2022-01-02 10:42:00 Monaveed, Cory [facility] (NA, K, CL, CO2, GLUCOSE, Medica l Branch BUN, CREATININE, CA) BLOOD CULTURE SCREEN 2022-01-02 10:41:00 Moulin, [facility] CBC WITH DIFF 2022-01-02 10:41:00 Moulin, Cory [facility] GLYCOSYLATED HEMOGLOBIN 2022-01-02 10:41:00 Shahla Andrade [facility] (A1C) [facility] BLOOD CULTURE SCREEN 2022-01-02 10:40:00 Moulin, Cory [facility] RESPIRATORY CULTURE 2022-01-02 10:40:00 Moulin, Coyr [facility] URINE CULTURE 2022-01-02 10:39:00 MoulinCory [facility] MRSA / MSSA SCREEN BY 2022-01-02 10:39:00 MoCory lucio [facility] PCR, [facility] ABG+COOX+NA+K+GLU+CA2+ 2022-01-02 10:17:00 MoCory lucio [facility] AC PANEL 21 + LACTIC ACID 2022-01-02 03:53:00 Janis Valencia [facility] XR CHEST 1 VW 2022-01-02 02:59:00 [facility]22-01-02 02:58:00 [facility] LACTIC ACID WHOLE BLOOD 2022-01-02 02:26:00 Janis Valencia [facility] AC PANEL 21 + LACTIC ACID 2022-01-02 02:26:00 Janis Valencia [facility] BLOOD CULTURE SCREEN 2022-01-02 02:25:00 Janis Valencia [facility] TROPONIN I 2022-01-02 02:25:00 Janis Valencia [facility] COMP. METABOLIC PANEL 2022-01-02 02:25:00 Janis Valencia [facility] ([id number]) [facility] CBC WITH DIFF 2022-01-02 02:25:00 Janis Valencia [facility] N-TERMINAL PRO-BNP 2022-01-02 02:25:00 Janis Valencia [facility] HB ECG ROUTINE & RHYTHM 2022-01-02 02:14:14 Janis Valencia [facility] HOSPITAL ADMISSION 2022-01-01 05:01:00 Doctor Unasssheila, [facility] XR CHEST 1 VW 2021-12-09 04:15:00 Duke Velazquez [facility] LIPASE 2021-12-09 03:52:00 Duke Velazquez [facility] TROPONIN I 2021-12-09 03:52:00 Duke Velazquez [facility] COMP. METABOLIC PANEL 2021-12-09 03:52:00 Duke Velazquez [facility] ([id number]) [facility] CBC WITH DIFF 2021-12-09 03:52:00 Duke Velazquez [facility] N-TERMINAL PRO-BNP 2021-12-09 03:52:00 Duke Velazquez [facility] CONSENT/REFUSAL FOR 2021-12-09 03:24:16 Doctor Unassigned, [facility] DIAGNOSIS AND TREATMENT [place] [facility] POCT GLUCOSE (AUTOMATED) 2021-09-23 17:13:00 Paula Rowe [facility] POCT GLUCOSE (AUTOMATED) 2021-09-23 13:53:00 Paula Rowe [facility] BASIC METABOLIC PANEL 2021-09-23 10:22:00 Laurie Wilkins [facility] (NA, K, CL, CO2, GLUCOSE, Medica l Branch BUN, CREATININE, CA) CBC WITHOUT DIFF 2021-09-23 10:22:00 Laurie Wilkins [facility] POCT GLUCOSE (AUTOMATED) 2021-09-23 10:12:00 Paula Rowe [facility] POCT GLUCOSE (AUTOMATED) 2021-09-23 05:38:00 Paula Rowe [facility] POCT GLUCOSE (AUTOMATED) 2021-09-23 02:14:00 Paula Rowe [facility] POCT GLUCOSE (AUTOMATED) 2021-09-22 22:20:00 Paula Rowe [facility] POCT GLUCOSE (AUTOMATED) 2021-09-22 19:52:00 Paula Rowe [facility] TRANSTHORACIC ECHO (TTE) 2021-09-22 18:44:47 Cabrera [facility] COMPLETE W/ CONTRAST Medical Bra [facility] POCT GLUCOSE (AUTOMATED) 2021-09-22 18:07:00 Paula Rowe [facility] EKG-12 LEAD 2021-09-22 13:45:05 Paula Rowe [facility] POCT GLUCOSE (AUTOMATED) 2021-09-22 13:20:00 Paula Rowe [facility] PNEUMOCOCCAL ANTIGEN 2021-09-22 12:39:00 Nathaniel [facility] MRSA / MSSA SCREEN BY 2021-09-22 12:34:00 Nathaniel [facility] PCR, [facility] RESPIRATORY PANEL BY PCR 2021-09-22 12:34:00 Nikos Pugh [facility] GALV ONLY - INFLUENZA A B 2021-09-22 12:33:00 Cabrera Armstrong [facility] RSV [facility] COVID-19 (MOLECULAR 2021-09-22 12:33:00 [facility] NUCLEIC ACID AMPLIFICATION) SPUTUM CULTURE 2021-09-22 12:30:00 Nathaniel [facility] AC PANEL 20 + LACTIC ACID 2021-09-22 12:16:00 Nathaniel [facility] PHOSPHORUS 2021-09-22 12:15:00 [facility]UM 2021-09-22 12:15:00 [facility] HEPATIC FUNCTION PANEL 2021-09-22 12:15:00 [facility] ([id number]) (ALB,T.PRO,BILI Medical Branch T,BU/BC,ALT,AST,ALK PHOS) BASIC METABOLIC PANEL 2021-09-22 12:15:00 [facility] (NA, K, CL, CO2, GLUCOSE, Medica l Branch BUN, CREATININE, CA) CBC WITH DIFF 2021-09-22 12:15:00 [facility] / INR 2021-09-22 12:15:00 [facility] BLOOD CULTURE SCREEN 2021-09-22 12:13:00 Nathaniel [facility] AC PANEL 20 + LACTIC ACID 2021-09-22 06:41:00 Paula Rowe [facility] TROPONIN I 2021-09-22 06:36:00 Paula Rowe [facility] COMP. METABOLIC PANEL 2021-09-22 06:36:00 Paula Rowe [facility] ([id number]) Medical [place] CBC WITH DIFF 2021-09-22 06:36:00 Paula Rowe [facility] GLYCOSYLATED HEMOGLOBIN 2021-09-22 06:36:00 [facility] PROTHROMBIN TIME / INR 2021-09-22 06:36:00 Paula Rowe [facility] ACTIVATED PARTIAL 2021-09-22 06:36:00 Paula Rowe [facility] THRMPLAS SHREYA [facility] N-TERMINAL PRO-BNP 2021-09-22 06:36:00 Paula Rowe [facility] COVID-19 (ID NOW RAPID 2021-09-22 06:36:00 Paula Rowe [facility] TESTING) Medical Branch LAB ONLY COVID 2021-09-22 06:36:00 Jae [facility] INTERPRETATION [facility] XR CHEST 1 VW 2021-09-22 06:26:48 [facility] RHYTHM 2021-09-22 06:17:39 Paula Rowe [facility] STRIP Medical Branch HOSPITAL ADMISSION 2021-09-22 06:01:00 Doctor Unazeke [facility] [place] [facility] CONSENT/REFUSAL FOR 2021-09-22 06:00:03 Doctor Arturo [facility] DIAGNOSIS AND TREATMENT [place] [facility] DME/SUPPLY JUSTIFICATION 2021-08-01 06:01:00 Doctor Arturo [facility] Plan of Care Planned Activity Planned Date Details Comments Source Future Scheduled 2024-07-31 DTAP/TDAP/TD VACCINES [facility]00 (2 - Td or Tdap) [code Medic al Center = DTAP/TDAP/TD VACCINES (2 - Td or Tdap)] Future Scheduled 2024-07-31 DTAP/TDAP/TD VACCINES [facility] 00:00:00 (2 - Td or Tdap) [code Medic al Center = DTAP/TDAP/TD VACCINES (2 - Td or Tdap)] Future Scheduled 2023-11-[address] [facility] 00:00:00 Counseling [facility] Medical Cente r Screening (12+) [code = Tobacco Cessation Counseling and Screening (12+)] Future Scheduled 2023-11-[address] [facility] 00:00:00 Counseling [facility] Medical Cente r Screening (12+) [code = Tobacco Cessation Counseling and Screening (12+)] Future Scheduled 2023-03-[address] [facility] 00:00:00 (Season Ended) [code = Medic al Center INFLUENZA VACCINE (Season Ended)] Future Scheduled 2023-03-[address] [facility] 00:00:00 (Season Ended) [code = Medic al Center INFLUENZA VACCINE (Season Ended)] Future Scheduled 2022-07-[address] [facility] 00:00:00 (12+) [code = Medical Center DEPRESSION SCREENING (12+)] Future Scheduled 2022-07-[address] [facility] 00:00:00 (12+) [code = Medical Center DEPRESSION SCREENING (12+)] Future Scheduled 2018-06-[address] [facility] 00:00:00 0-64 YRS (2 - PCV) Medical C enter [code = PNEUMOCOCCAL VACCINE 0-64 YRS (2 - PCV)] Future Scheduled 2018-06-[address] [facility] 00:00:00 0-64 YRS (2 - PCV) Medical C enter [code = PNEUMOCOCCAL VACCINE 0-64 YRS (2 - PCV)] Future Scheduled 2011 SHINGLES VACCINES ([address] [facility] 00:00:00 2) [code = SHINGLES Medical Center VACCINES (1 of 2)] Future Scheduled 2011 SHINGLES VACCINES ([address] [facility] 00:00:00 2) [code = SHINGLES [facility] VACCINES (1 of 2)] Future Scheduled 2006 Lipid panel (procedure) [facility] 00:00:00 [code = 26208175] Medical Ce nter Future Scheduled 2006 Lipid panel (procedure) [facility] 00:00:00 [code = 93713629] Medical Ce nter Future Scheduled 1982 Screening for malignant [facility] 00:00:00 neoplasm of cervix Medical C enter (procedure) [code = 909858495] Future Scheduled 1982 Screening for malignant [facility] 00:00:00 neoplasm of cervix Medical C enter (procedure) [code = 942684329] Future Scheduled 1979 HEPATITIS C SCRE[facility]ING [facility] 00:00:00 [code = HEPATITIS C Medical Center SCREENING] Future Scheduled 1979 HEPATITIS C [facility]CRE[facility] 00:00:00 [code = HEPATITIS C Medical Center SCREENING] Future Scheduled 1962-03-10 COVID-19 VACCINE (#1) [facility] 00:00:00 [code = COVID-[address] VACCINE (#1)] Future Scheduled 1962-03-10 COVID-19 VACCINE (#1) [facility] 00:00:00 [code = COVID-[address] VACCINE (#1)] Future Scheduled 1961 Screening for malignant [facility] 00:00:00 neoplasm of breast Medical C enter (procedure) [code = 918723528] Future Scheduled 1961 CT Colonography (combo) [facility] 00:00:00 [code = CT Colonography [facility] (combo)] Future Scheduled 1961 Screening for malignant [facility] 00:00:00 neoplasm of colon Medical Ce nter (procedure) [code = 836127494] Future Scheduled 1961 Screening for malignant [facility] 00:00:00 neoplasm of colon Medical Ce nter (procedure) [code = 576574742] Future Scheduled 1961 Screening for malignant [facility] 00:00:00 neoplasm of colon Medical Ce nter (procedure) [code = 687536548] Future Scheduled 1961 Screening for malignant [facility] 00:00:00 neoplasm of colon Medical Ce nter (procedure) [code = 206572492] Future Scheduled 1961 Sigmoidoscopy [code = [facility] Sigmoidoscopy] Medical Cente r Future Scheduled 1961 Screening for malignant [facility] 00:00:00 neoplasm of breast Medical C enter (procedure) [code = 678963525] Future Scheduled 1961 CT Colonography (combo) [facility] 00:00:00 [code = CT Colonography [facility] (combo)] Future Scheduled 1961 Screening for malignant [facility] 00:00:00 neoplasm of colon Medical Ce nter (procedure) [code = 843408711] Future Scheduled 1961 Screening for malignant [facility] 00:00:00 neoplasm of colon Medical Ce nter (procedure) [code = 263005606] Future Scheduled 1961 Screening for malignant [facility] 00:00:00 neoplasm of colon Medical Ce nter (procedure) [code = 795068287] Future Scheduled 1961 Screening for malignant [facility] 00:00:00 neoplasm of colon Medical Ce nter (procedure) [code = 895837606] Future Scheduled 1961 Sigmoidoscopy [code = [facility] Sigmoidoscopy] Medical Nalini r Encounters Start End Encounter Admission Attending Care Care Encounter Source Date/Time Date/Time Type Type Clinicians Facility Department ID 2022-08-05 Emergency [facility] [id number] Univers 00:34:25 ity [facility] 2022-11-25 2022-11-26 Hospital ER Tracy Johnson [facility] [id number] 02[facility]46[facility]00 14:00:00 Encounter [facility] 2022-11-25 2022-11-26 Inpatient ER LACY LIRA Internal [id number] SLE 02:46:00 14:00:00 [facility] 2022-11-25 2022-11-26 [facility] Tracy Johnson [facility] [id number] 02:46[facility]00 14:00:00 Encounter [facility] 2022-11-25 2022-11-[address] [facility] [id number] [facility] 00[facility]00 [facility] 2022-11-25 2022-11-[address] [facility] [id number] [facility] 00:[facility]00 [facility] 2022-09-09 2022-09-[address] [facility] ERT [id number] Univers 06:30:00 08:46:00 JOSLYN shipman [facility] 2022-09-09 2022-09-09 Emergency [facility] [id number] Univers 06:30:00 08:46:00 Joslyn BOYD [id number] it[place] [id number] [facility] 084 Branch 2022-08-12 2022-08-12 Transition [place] [id number] Univers 00:00:00 00:00:00 of Care Alessandra JEFFREY [id number] [place] [id number] [facility] [address] Branch 2022-08-05 2022-08-10 Inpatient [address]LOS [facility] ROBLES [id number] Univers 00:39:00 17:00:00 COREY shipman [facility] 2022-08-05 2022-08-10 [facility] Jonas Hernandez [facility] [id number] Univers 00:39:00 17:00:00 Encounter Corey Gonzalez DEB [id number] ity of [place] 4.2.7.2.686 [facility] [id number] [address] 2022-06-04 2022-06-[address] [facility] ERT [id number] Univers 20:54:00 23:53:00 GEN shipman [facility] 2022-06-04 2022-06-[address] [facility] [id number] Univers 20:54:00 23:53:00 Gen BOYD [id number] i ty of [place] 4.2.7.2.686 [facility] [id number] [address] 2022-05-12 2022-05-[address] [facility] ERT [id number] Univers 22:51:00 03:10:00 PAULA [facility] 2022-05-12 2022-05-[address] [facility] [id number] Univers 22:51:00 03:10:00 Paula BOYD 350.1.13.10 i ty of [place] 4.2.7.2.686 [facility] [id number] [address] 2022-05-02 2022-05-02 Emergency X Sanjay HENRY [facility] ERT [id number] Univers 00:17:00 02:29:00 ity [facility] 2022-05-02 2022-05-02 Emergency Sanjay Henry [facility] [id number] Univers 00:17:00 02:29:00 Janel BOYD 350.1.13.10 i ty of [place] 4.2.7.2.686 [facility] [id number] [address] 2022-04-28 2022-04-[address] [facility] ERT [id number] Univers 21:41:00 00:50:00 PAULA shipman [facility] 2022-04-28 2022-04-29 Emergency [facility] [id number] Univers 21:41:00 00:50:00 Paula BOYD 350.1.13.10 i ty of [place] 4.2.7.2.686 [place] [facility] [id number] [place] [address] Branch 2022-03-02 2022-03-02 Transition [place] [id number] Univers 00:00:00 00:00:00 of Care Alessandra EMY 350.1.13.10 [place] [id number] [address] 2022-02-20 2022-02-27 [facility] [id number] Univers 14:58:00 17:54:00 [facility] umberto o [facility] 2022-02-20 2022-02-27 [facility] Paula Rowe 1.2.840.1 [id number] Univers 14:58:00 17:54:00 Encounter Kevin Lebron 350.1.13.10 ity of [facility] 4.2.7.2. 686 [place] [id number] [address] 2022-02-18 2022-02-18 [place] [id number] Univers 00:00:00 00:00:00 of Care Alessandra JEFFREY 350.1.13.10 [place] [id number] [address] 2022-02-11 2022-02-17 Inpatient X [facility] [id number] Univers 19:55:00 18:10:00 VALERIANO shipman [facility] 2022-02-11 2022-02-17 [facility] Paula Row[facility] [facility] 1.2.840.1 14 [id number] Univers 19:55:00 18:10:00 Encounter Valeriano Pantoja HEALTH 350.1.13.1 0 ity of [place] 4.2.7.2.686 [facility] [id number] [address] ([facility]) 2022-02-02 2022-02-02 Transition [place] Arrieta 1.2.840.114 [id number] Univers 00:00:00 00:00:00 of Care Alessandra JEFFREY 350.1.13.10 i ty of [place] 4.2.7.2.686 [facility] [phone] [facility] [address] 2022-01-27 2022-01-31 Inpatient X MARY [facility] ROBLES [id number] Univers 20:40:00 13:51:[facility]22-01-31 Hospital Paula Rowe [facility] 1.2.840.1 14 [id number] Univers 20:40:00 13:51:00 [facility]counter [facility]as [facility] 350.1.13.10 [facility] 4.2.7.2.686 [facility] [id number] [facility] [address] 2022-01-28 2022-01-[address] [facility] 1.2.840.114 [id number] Univers 00:00:00 00:00:00 Layne HEALTH 350.1.13.10 it y of CANCER 4.2.7.2.686 [facility] - [phone] Med ical [facility] [address] 2022-01-13 2022-01-13 Transition [place] Arrieta 1.2.840.114 [id number] Univers 00:00:00 00:00:00 of Care Alessandra JEFFREY 350.1.13.10 i ty of [place] 4.2.7.2.686 [facility] [phone] [facility] [address] 2022-01-12 2022-01-12 Emergency X JESSENIA [facility] ERT [id number] Univers 17:23:00 22:19:00 JOSLYN ity [facility] 2022-01-12 2022-01-[address] [facility] 1.2.840.114 [id number] Univers 17:23:00 22:19:00 Joslyn BOYD 350.1.13.10 ity of [facility] 4.2.7.2.686 [facility] [phone] [place] [id number] Branch 2022-01-01 2022-01-12 Inpatient X [facility] ROBLES [id number] Univers 21:18:00 14:06:00 umberto STACK [facility] 2022-01-01 2022-01-12 [facility] Janis Valencia [facility] 1 .2.840.114 [id number] Univers 21:18:00 14:06:00 Encounter Cory Cee [facility] 350.1.13.10 ity of Abjackie DiazShahla go DHARA 4.2.7.2.686 [facility] [id number] [facility] [address] ([facility]) 2021-12-08 2021-12-09 Emergency X FLORIDALMA [facility] ERT [id number] Univers 22:28:00 00:58:00 FOLUSHO ity of [facility] 2021-12-08 2021-12-[address] [facility] 1.2.840.114 [id number] Univers 22:28:00 00:58:00 Duke BOYD 350.1.13.10 ity of JOHNNIE 4.2.7.2.686 [facility] [phone] [place] 8[address]504 Branch 2021-09-24 2021-09-24 Transition MO Brewer 1.2.840.114 [id number] Univers 00:00:00 00:00:00 of Care Patria JEFFREY 350.1.13.10 ity of [place] 4.2.7.2.686 [facility] [id number] [facility] [address] 2021-09-22 2021-09-23 Inpatient U ENE GIVENS [facility] MPU [id number] Univers 00:05:00 15:03:00 ENE GIVENS i ty of [facility] 2021-09-22 2021-09-23 [facility] Paula Rowe 1.2.840.1 14 [id number] Univers 00:05:00 15:03:00 Encounter Ene Givens 350.1.13.10 ity of HOSPITAL 4.2.7.2.686 Compa as [phone] [facility] [address] 2021-08-01 2021-08-01 Orders Doctor KATELYN 1.2.840.114 [id number] Univers 00:00:00 00:00:00 Only Unassigned, JACKIE 350.1.13.10 ity of [place] [facility] 4.2.7.2.686 Compa as [phone] [facility] [address] 2021-07-23 2021-07-[address] [facility] 1.2.840.114 [id number] Univers 14:15:00 14:30:00 Visit [facility] 350.1.13.10 it y of [place] 4.2.7.2.686 [phone] [facility] [address] 2021-07-23 2021-07-23 [facility] [id number] Univers 14:15:00 14:15:00 [facility] 2021-07-23 2021-07-23 [facility] [id number] Univers 14:15:00 14:15:00 [facility] 2021-07-23 2021-07-23 [facility] 1.2.840.114 [id number] Univers 00:00:00 00:00:00 [facility] REJI 350.1.13.10 i ty of [facility] [place].7.2.686 [place] [id number] [facility] [address] 2021-06-25 2021-06-[address] [facility] [id number] Univers 21:58:00 03:17:00 APARNA shipman [facility] 2021-06-25 2021-06-26 Emergency [facility] 1.2.910.142 [id number] Univers 21:58:00 03:17:00 Aparna BOYD 350.1.13.10 [facility] 4.2.7.2.686 [facility] [id number] [facility] [address] 2021-02-19 2021-02-19 [facility] [id number] Univers 00:00:00 00:00:00 CAMILA [facility] 2020-02-01 2020-02-01 [facility] [id number] Univers 00:00:00 00:00:00 CAMILA [facility] 2019-09-01 2019-09-01 [facility] [id number] Univers 14:41:55 23:59:00 GAB [facility] 2019-08-04 2019-08-04 [facility] [id number] Univers 17:13:44 23:59:00 JUNE [facility] Results Test Description Test Time Test Comments Results Result Comments Source HEMOGLOBIN A1C 2022-11-26 10:39:20 Test Item Value Reference Range Interpretation Comme nts HEMOGLOBIN A1C ELECTROPHORESIS 8.0 % See_Comment H [Automated message] The system ([employer]) (test code = 3811) which generated this result transmitted ref erence range: <=5.6%. The ref erence range was not used to int erpret this result as normal/abnor mal. "The A1c is measured using a NGSP-certified method. HbA1c value equal to or greater than 6.5% as thediagnosis cutoff for diabetes. An HbA1c value of 5.7- 6.4% indicates increased risk for diabetes (prediabetes)."Load Checker ID - ADMOperator ID - ADMPOC-Glucose [id number] 10:22:15 Test Item Value Reference Range Interpretation Comments POC-Glucose Meter (test 205 mg/dL 70-110 H : TE STED AT [facility] code = 1538) [address] [facility], 770 30: Load Checker/Techni parag ID = [id number] for ZAHIDA COWAN Lab Interpretation (test Abnormal code = 80151-8) [facility] [id number] 10:22:15 Test Item Value Reference Range Interpretation Comments POC-Glucose Meter (test 205 mg/dL 70-110 H : TE STED AT [facility] code = 1538) [address] [place], 770 30: Load Checker/Techni parag ID = [id number] for ZAHIDA COWAN A Lab Interpretation (test Abnormal code = 46552-1) [facility] [id number] 10:22:15 Test Item Value Reference Range Interpretation Comments POC-GLUCOSE METER 205 mg/dL 70-110 H : TESTED A T [facility] 6720 (BEAKER) (test code = IRVIN Mendez [facility], 1538) 31830: Load Checker/Techni parag ID = [id number] for ZAHIDA CHANDRAA RAD, CHEST, 1 VIEW, NON [id number] 10:14:00Reason for exam:->sobShould this be performed at the bedside?->Yes [facility] ST[facility]O BE[facility] : 1960 Sex: FFINALREPORT INDICATION: sob COMPARISON: None TECHNIQUE: Single frontal view of the chest. FINDINGS: Lungs and pleura: Trace bilateral effusions and adjacent atelectasis.Heart and mediastinum: Normal heart size. Unremarkable mediastinal contours.Osseous structures: No acute abnormality.Other: Tracheostomy. Signed: Selma Niño Verified Date/Time: 11/26/2022 10:14:47 Reading Location: [address] Reading Room COMPREHENSIVE METABOLIC PANEL 2022-11-26 [...] not appl icable for dialysis patien ts Load Checker ID - [id number] 06:58:15 Test Item Value Reference Range Interpretation Comments MAGNESIUM (BEAKER) (test code = 2.2 mg/dL 1.6-2.6 627) Load Checker ID - ADMINCBC W/PLT COUNT & AUTO [id number] 06:28:22 Test Item Value Reference Range Interpretation [...] PERCENT (BEAKER) (test code = 2801) POCT-GLUCOSE [id number] 23:33:03 Test Item Value Reference Range Interpretation Comments POC-GLUCOSE METER 193 mg/dL 70-110 H : TESTED A T [facility] 6720 (BEAKER) (test code = JIMVALDEZ TAMAYO [place], 1538) 90642: Load Checker/Techni parag ID = [id number] for Af zaal, Sean T4, [id number] 18:42:05 Test Item Value Reference Range Interpretation Comments FREE T4 (BEAKER) (test code = 655) 1.17 ng/dL 0.70-1.48 Load Checker ID - DBTSH/FREE T4 IF [id number] 18:08:13 Test Item Value Reference Range Interpretation Comments THYROID STIMULATING HORMONE 0.100 uIU/mL 0.350-4.940 L (BEAKER) (test code = 772) Load Checker ID - [id number] 17:37:29 Test Item Value Reference Range Interpretation Comments MAGNESIUM (BEAKER) 2.2 mg/dL 1.6-2.6 Specimen slightly (test code = 627) hemolyzed Load Checker ID - ADMINCOMPREHENSIVE METABOLIC [id number] 17:37:29 Test Item Value Reference Range Interpretation [...] not appl icable for dialysis patien ts Load Checker ID - ADMINB-TYPE NATRIURETIC FACTOR (BNP)2022-11-25 17:37:29 Test Item Value Reference Range Interpretation Comments B-TYPE NATRIURETIC PEPTIDE (BEAKER) 35 pg/mL 0-100 (test code = 700) Load Checker ID - ADMINCBC W/PLT COUNT & AUTO [id number] 17:08:37 Test Item Value Reference Range Interpretation [...] PERCENT (BEAKER) (test code = 2801) POCT-GLUCOSE [id number] 16:44:23 Test Item Value Reference Range Interpretation Comments POC-GLUCOSE METER 192 mg/dL 70-110 H : TESTED A T [facility] 6720 (BEAKER) (test code = IRVIN TAMAY[place], 1538) 09715: Load Checker/Techni parag ID = [id number] for LAURA VIVEROS POCT-GLUCOSE [id number] 09:19:54 Test Item Value Reference Range Interpretation Comments POC-GLUCOSE METER 205 mg/dL 70-110 H : TESTED A T [facility] 6720 (BEAKER) (test code = IRVIN Andrea TAMAYO [place], 1538) 62075: Load Checker/Techni parag ID = [id number] for CAMILLA HERNDON POCT GLUCOSE (AUTOMATED)2022-08-10 20:26:18 Test Item Value Reference Range Interpretation Comments POCT GLU (test code = 3007729903) 178 mg/dL 70-110 H Lab Interpretation (test code = Abnormal 12021-4) [facility] GLUCOSE (AUTOMATED)2022-08-10 20:26:17 Test Item Value Reference Range Interpretation Comments POCT GLU (test code = 4757052735) 134 mg/dL 70-110 H Lab Interpretation (test code = Abnormal 27128-4) [facility] GLUCOSE (AUTOMATED)2022-08-10 09:35:52 Test Item Value Reference Range Interpretation Comments POCT GLU (test code = 4888580696) 240 mg/dL 70-110 H Lab Interpretation (test code = Abnormal 86806-1) [facility] GLUCOSE (AUTOMATED)2022-08-10 06:09:42 Test Item Value Reference Range Interpretation Comments POCT GLU (test code = 6704575929) 219 mg/dL 70-110 H Lab Interpretation (test code = Abnormal 55763-2) [facility] GLUCOSE (AUTOMATED)2022-08-10 02:27:50 Test Item Value Reference Range Interpretation Comments POCT GLU (test code = 1181966112) 264 mg/dL 70-110 H Lab Interpretation (test code = Abnormal 90023-1) [facility] GLUCOSE (AUTOMATED)2022-08-09 22:32:46 Test Item Value Reference Range Interpretation Comments POCT GLU (test code = 2272081181) 327 mg/dL 70-110 H Lab Interpretation (test code = Abnormal 69184-3) [facility] GLUCOSE (AUTOMATED)2022-08-09 13:19:52 Test Item Value Reference Range Interpretation Comments POCT GLU (test code = 0177111155) 196 mg/dL 70-110 H Lab Interpretation (test code = Abnormal 15042-2) [facility] 12:10:11 Test Item Value Reference Range Interpretation Comments MAGNESIUM (test code = 2376447092) 2.5 mg/dL 1.7-2.4 H Lab Interpretation (test code = Abnormal 61216-1) [facility] METABOLIC PANEL (NA, K, CL, CO2, GLUCOSE, BUN, CREATININE, CA)2022-08-09 12:10:06 Test Item Value Reference Range Interpretation Comments NA (test code = 137 mmol/L 135-145 6289928247) K (test code = 4.3 mmol/L 3.5-5.0 1081094660) CL (test code = 101 mmol/L 98-108 7637561250) CO2 TOTAL (test code = 35 mmol/L 23-31 H 7087160339) AGAP (test code = 2-16 L 0007581795) BUN (test code = 22 mg/dL 7-23 7852362429) GLUCOSE (test code = 186 mg/dL 70-110 H 2148279197) CREATININE (test code = 0.82 mg/dL 0.50-1.04 6782080103) CALCIUM (test code = 8.2 mg/dL 8.6-10.6 L 5026955118) eGFR (test code = mL/min/1.73m2 1542598022) JENNIFFER (test code = JENNIFFER) Association of [...] tests). Lab Interpretation Abnormal (test code = 59783-5) [facility]20[facility]15 12:09:46 Test Item Value Reference Range Interpretation Comments PHOSPHORUS (test code = 6981682884) 3.2 mg/dL 2.5-5.0 Lab Interpretation (test code = Normal 89184-6) [facility] WITH [id number] 12:03:07 Test Item Value Reference Range Interpretation Comments WBC (test code = See_Comment [Automated 3990-2) message] The sy stem which generated this result transmitted reference range : 4.30 - 11.10 10*3/?L. The reference range was not used to interpret this result as normal/abnormal . RBC (test code = See_Comment L [Automated 209-8) message] The sy stem which generated this [...] RDW-SD (test code = 47.1 fL 39.0-49.9 22398-7) RDW-CV (test code = 14.6 % 12.0-15.5 788-0) PLT (test code = See_Comment [Automated 777-3) message] The sy stem which generated this result transmitted reference range : 166 - 358 10*3/ ?L. The reference r josselyn was not used to interpret this result as normal/abnormal . MPV (test code = 9.5 fL 9.5-12.9 17150-5) NRBC/100 WBC (test See_Comment [Automat ed code = 1249939047) message] The system which generated this result transmitted reference range : 0.0 - 10.0 /100 WBCs. The refer ence range was not u sed to interpret th is result as normal/abnormal . NRBC x10^3 (test code See_Comment [Auto mated = 2099909071) message] The s ystem which generated this result transmitted reference range : 10*3/?L. The reference range was not used to interpret this result as normal/abnormal . GRAN MAT (NEUT) % 85.8 % (test code = 770-8) IMM GRAN % (test code 2.50 % = 7271171378) LYMPH % (test code = 6.7 % 736-9) MONO % (test code = 4.8 % 5905-5) EOS % (test code = 0.1 % 713-8) BASO % (test code = 0.1 % 706-2) GRAN MAT x10^3(ANC) 7.74 10*3/uL 1.88-7.09 H (test code = 8657808377) IMM GRAN x10^3 (test 0.23 10*3/uL 0.00-0.06 H code = 2486671273) LYMPH x10^3 (test code 0.60 10*3/uL 1.32-3.29 L = 731-0) MONO x10^3 (test code 0.43 10*3/uL 0.33-0.92 = 742-7) EOS x10^3 (test code = 0.03-0.39 L 711-2) BASO x10^3 (test code 0.01-0.07 = 704-7) Lab Interpretation Abnormal (test code = 73211-8) [facility] GLUCOSE (AUTOMATED)2022-08-09 11:54:17 Test Item Value Reference Range Interpretation Comments POCT GLU (test code = 1163925254) 202 mg/dL 70-110 H Lab Interpretation (test code = Abnormal 94192-2) [facility])2022-08-09 06:19:48 Test Item Value Reference Range Interpretation Comments POCT GLU (test code = 5910960938) 231 mg/dL 70-110 H Lab Interpretation (test code = Abnormal 37011-6) [facility] GLUCOSE (AUTOMATED)2022-08-09 02:32:58 Test Item Value Reference Range Interpretation Comments POCT GLU (test code = 3130740074) 316 mg/dL 70-110 H Lab Interpretation (test code = Abnormal 10184-9) [facility] GLUCOSE (AUTOMATED)2022-08-09 02:28:52 Test Item Value Reference Range Interpretation Comments POCT GLU (test code = 5209074608) 363 mg/dL 70-110 H Lab Interpretation (test code = Abnormal 28442-9) [facility] GLUCOSE (AUTOMATED)2022-08-08 17:32:51 Test Item Value Reference Range Interpretation Comments POCT GLU (test code = 8909770485) 201 mg/dL 70-110 H Lab Interpretation (test code = Abnormal 63685-8) [facility] GLUCOSE (AUTOMATED)2022-08-08 17:32:51 Test Item Value Reference Range Interpretation Comments POCT GLU (test code = 7893023136) 251 mg/dL 70-110 H Lab Interpretation (test code = Abnormal 72882-1) [facility] GLUCOSE (AUTOMATED)2022-08-08 10:02:25 Test Item Value Reference Range Interpretation Comments POCT GLU (test code = 2922749069) 153 mg/dL 70-110 H Lab Interpretation (test code = Abnormal 42524-4) [facility] GLUCOSE (AUTOMATED)2022-08-08 06:20:09 Test Item Value Reference Range Interpretation Comments POCT GLU (test code = 3201572729) 224 mg/dL 70-110 H Lab Interpretation (test code = Abnormal 16771-8) [facility] GLUCOSE (AUTOMATED)2022-08-08 02:43:59 Test Item Value Reference Range Interpretation Comments POCT GLU (test code = 4992088791) 256 mg/dL 70-110 H Lab Interpretation (test code = Abnormal 20531-8) [facility] GLUCOSE (AUTOMATED)2022-08-07 22:28:36 Test Item Value Reference Range Interpretation Comments POCT GLU (test code = 2648548161) 273 mg/dL 70-110 H Lab Interpretation (test code = Abnormal 34235-9) [facility] ([facility]E)2022-08-07 22:15:07 Test Item Value Reference Range Interpretation Comments Height (test code = in 4207727443) Weight (test code = lbs 7575818903) Systolic BP (test code = mmHg 3598715738) Diastolic BP (test code mmHg = 4763017281) Heart Rate (test code = bpm 8118358010) BSA (test code = 1.96 m2 8414791507) Ao root diam (test code 3.30 cm = 5984886532) Aortic root (test code = 3.3 cm 4646156661) Ao root annulus (test 3.3 cm code = 7761130912) LVOT diameter (test code 1.80 cm = 4680295545) LVOT area (test code = 2.60 cm2 2797275081) LVIDD (test code = 3.50 cm 4262525659) Left Ventricular End 51.9 mL Diastolic Volume by Teichholz Method (test code = 3908987) IVS (test code = 1.24 cm 1621298001) Interventricular Septum 1.24 cm Diastolic Thickness by 2D (test code = 9257180) LVPWD (test code = 1.24 cm 3691055177) PW (test code = 1.24 cm 0.6-1.1 2937308981) EF(Teich) (test code = 58.70 % 5006651907) LVIDS (test code = 2.46 cm 9158840688) Left Ventricular End 21.4 mL Systolic Volume by Teichholz Method (test code = 2796505) FS (test code = 30 % 7051533842) EF - 2D (test code = 58.70 % 58828606) LA size (test code = 2.9 cm 2227542774) MV Peak E Marva (test code 81.4 cm/s = 9247250205) MV stenosis pressure 1/2 76.6 ms time (test code = 1607160668) E wave decelartion time 0.26 s (test code = 9139529716) MV Peak A Marva (test code 87.8 cm/s = 5646518484) E/A ratio (test code = ratio 0330453378) MV Prop V (test code = 139.40 cm/s 3747969466) MV E/e' septal (test 7.4 cm/s code = 9599995859) Tapse (test code = 1.61 cm 0107017619) LVOT stroke volume (test 53.30 cm3 code = 4368717121) LVOT peak marva (test code 128.1 cm/s = 3124482358) LVOT mn grad (test code mmHg = 8805443544) AV LVOT peak gradient mmHg (test code = 7753103894) LVOT peak VTI (test code 20.9 cm = 9241924299) LV V1 mean (test code = 86.80 cm/s 6012850954) Aortic valve mean 119.8 cm/s velocity (test code = 3781731871) Ao peak marva (test code = 175.1 cm/s 0893828045) Ao VTI (test code = 28.5 cm 9956820506) AV area by cont VTI 1.9 cm2 (test code = 5536945162) AV area peak marva (test 1.9 cm2 code = 4867311939) Ao max PG (test code = 12.30 mm[Hg] 3738939768) AV peak gradient (test mmHg code = 6815726369) AV valve area (test code 1.87 cm2 = 0133722781) AV mean gradient (test mmHg code = 0895819759) Radiology Study observation (narrative) (test code = 40392-1) JENNIFFER (test code = JENNIFFER) Table formatting [...] mL of Lumason ultrasound enhancing agent used. [facility] GLUCOSE (AUTOMATED)2022-08-07 17:28:57 Test Item Value Reference Range Interpretation Comments POCT GLU (test code = 168 mg/dL 70-110 H Notifi ed Provider 2010875815) Lab Interpretation (test Abnormal code = 02858-8) [facility]ATING [id number] 14:57:11 Test Item Value Reference Range Interpretation Comments TSH (test code = See_Comment Biotin has been 5533020949) reported to cau se a negative bias, interpret resul ts relative to pat ient's use of biotin. [Automated mess age] The system [employer] generated this result transmitted ref erence range: 0.45 - 4 .70 mIU/L. The refe rence range was not u sed to interpret this result as normal/abnor mal. Lab Interpretation (test Normal code = 70258-4) [facility] GLUCOSE (AUTOMATED)2022-08-07 13:46:07 Test Item Value Reference Range Interpretation Comments POCT GLU (test code = 3739346104) 180 mg/dL 70-110 H Lab Interpretation (test code = Abnormal 46410-2) [facility] GLUCOSE (AUTOMATED)2022-08-07 12:34:16 Test Item Value Reference Range Interpretation Comments POCT GLU (test code = 8849459089) 198 mg/dL 70-110 H Lab Interpretation (test code = Abnormal 19748-4) [facility] CenterTR[facility] [id number] 12:27:41 Test Item Value Reference Interpretation Comments Range TROPONIN I (test 0.005 ng/mL See_Comment [Automated code = 9671580372) message] The system which generated this result [...] biotin. Lab Interpretation Normal (test code = 81416-7) [facility] CenterN-TERMINAL [id number] 12:24:19 Test Item Value Reference Range Interpretation Comments NT-proBNP (test code 332 pg/mL See_Comment H [Autom ated = 8187137644) message] The system which generated this result transmitted reference range : <=125. The reference range was not used to interpret this result as normal/abnormal . JENNIFFER (test code = JENNIFFER) Biotin has been reported to cause a negative bias, interpret results relative to patient's use of biotin. Lab Interpretation Abnormal (test code = 64512-2) [facility]. METABOLIC PANEL (76659)2022-08-07 12:17:19 Test Item Value Reference Range Interpretation Comments NA (test code = 137 mmol/L 135-145 4653149740) K (test code = 4.3 mmol/L 3.5-5.0 4901331290) CL (test code = 103 mmol/L 98-108 7498564226) CO2 TOTAL (test code = 30 mmol/L 23-31 4605449900) AGAP (test code = 2-16 1857855138) BUN (test code = 30 mg/dL 7-23 H 8383084425) GLUCOSE (test code = 198 mg/dL 70-110 H 9428263628) CREATININE (test code = 0.93 mg/dL 0.50-1.04 5050339657) TOTAL BILI (test code = 0.4 mg/dL 0.1-1.5 1867878145) CALCIUM (test code = 8.3 mg/dL 8.6-10.6 L 5814466308) T PROTEIN (test code = 6.0 g/dL 6.3-8.2 L 0518672029) ALBUMIN (test code = 3.2 g/dL 3.5-5.0 L 5199655266) ALK PHOS (test code = 70 U/L 34-122 5038146783) ALTv (test code = 23 U/L 5-35 1742-6) AST(SGOT) (test code = 22 U/L 13-40 8175174748) eGFR (test code = mL/min/1.73m2 7262338987) JENNIFFER (test code = JENNIFFER) Association of [...] tests). Lab Interpretation Abnormal (test code = 53069-2) [facility]2023-[facility]-13 12:17:19 Test Item Value Reference Range Interpretation Comments MAGNESIUM (test code = 1582368967) 2.4 mg/dL 1.7-2.4 Lab Interpretation (test code = Normal 75599-7) [facility]2023-01-13 12:16:59 Test Item Value Reference Range Interpretation Comments PHOSPHORUS (test code = 2228868016) 3.3 mg/dL 2.5-5.0 Lab Interpretation (test code = Normal 01731-2) [facility] WITH [id number] 12:16:18 Test Item Value Reference Range Interpretation [...] (test code = 50.2 fL 39.0-49.9 H 57398-0) RDW-CV (test code = 15.1 % 12.0-15.5 788-0) PLT (test code = See_Comment [Automated 777-3) message] The system which generated this result transmit alden reference range : 166 - 358 10*3/ ?L. The reference range was not u sed to interpret th is result as normal/abnormal . MPV (test code = 10.0 fL 9.5-12.9 35506-7) NRBC/100 WBC (test See_Comment [Automat ed code = 7406638918) message] The system which generated this result transmit alden reference range : 0.0 - 10.0 /100 WBCs. The reference range was not used to interpret this result as normal/abnormal . NRBC x10^3 (test code See_Comment [Auto mated = 8947111185) message] The system which generated this result transmit alden reference range : 10*3/?L. The reference range was not used to interpret this result as normal/abnormal . GRAN MAT (NEUT) % 87.7 % (test code = 770-8) IMM GRAN % (test code 1.10 % = 0681675061) LYMPH % (test code = 7.7 % 736-9) MONO % (test code = 3.4 % 5905-5) EOS % (test code = 0.0 % 713-8) BASO % (test code = 0.1 % 706-2) GRAN MAT x10^3(ANC) 11.83 10*3/uL 1.88-7.09 H (test code = 8216297633) IMM GRAN x10^3 (test 0.15 10*3/uL 0.00-0.06 H code = 6179122324) LYMPH x10^3 (test code 1.04 10*3/uL 1.32-3.29 L = 731-0) MONO x10^3 (test code 0.46 10*3/uL 0.33-0.92 = 742-7) EOS x10^3 (test code = 0.03-0.39 L 711-2) BASO x10^3 (test code 0.01-0.07 = 704-7) Lab Interpretation Abnormal (test code = 31196-9) [facility] UNCONJUGATED/BILI [id number] 12:16:18 Test Item Value Reference Range Interpretation Comments BILI CONJ (test code = 3074717335) 0.0 mg/dL 0.0-0.3 BILI UNCON (test code = 9070946970) 0.2 mg/dL 0.1-1.1 Lab Interpretation (test code = Normal 95158-0) [facility] GLUCOSE (AUTOMATED)2022-08-07 10:20:14 Test Item Value Reference Range Interpretation Comments POCT GLU (test code = 4104332202) 227 mg/dL 70-110 H Lab Interpretation (test code = Abnormal 40229-5) [facility] GLUCOSE (AUTOMATED)2022-08-07 05:43:17 Test Item Value Reference Range Interpretation Comments POCT GLU (test code = 7498462149) 162 mg/dL 70-110 H Lab Interpretation (test code = Abnormal 73124-8) [facility] GLUCOSE (AUTOMATED)2022-08-07 02:28:42 Test Item Value Reference Range Interpretation Comments POCT GLU (test code = 3864531299) 229 mg/dL 70-110 H Lab Interpretation (test code = Abnormal 57787-4) [facility] GLUCOSE (AUTOMATED)2022-08-06 17:18:17 Test Item Value Reference Range Interpretation Comments POCT GLU (test code = 8475974935) 223 mg/dL 70-110 H Lab Interpretation (test code = Abnormal 53662-9) [facility] [id number] 13:38:44 Test Item Value Reference Range Interpretation Comments LACTIC ACID (test code = 1.93 mmol/L 0.50-2.20 3338723859) Lab Interpretation (test code = Normal 16551-4) [facility] GLUCOSE (AUTOMATED)2022-08-06 13:29:26 Test Item Value Reference Range Interpretation Comments POCT GLU (test code = 1968864627) 261 mg/dL 70-110 H Lab Interpretation (test code = Abnormal 09766-3) [facility] [id number] 12:40:18 Test Item Value Reference Interpretation Comments Range TROPONIN I (test 0.002 ng/mL See_Comment [Automated code = 5823053687) message] The system which generated this result [...] biotin. Lab Interpretation Normal (test code = 34577-6) [facility] [id number] 12:37:16 Test Item Value Reference Range Interpretation Comments NT-proBNP (test code 480 pg/mL See_Comment H [Autom ated = 2413535574) message] The system which generated this result transmitted reference range : <=125. The reference range was not used to interpret this result as normal/abnormal . JENNIFFER (test code = JENNIFFER) Biotin has been reported to cause a negative bias, interpret results relative to patient's use of biotin. Lab Interpretation Abnormal (test code = 22880-5) [facility] (15048)2022-08-06 12:28:53 Test Item Value Reference Range Interpretation Comments NA (test code = 136 mmol/L 135-145 4232785681) K (test code = 4.3 mmol/L 3.5-5.0 6837600633) CL (test code = 99 mmol/L 98-108 3684963691) CO2 TOTAL (test code = 36 mmol/L 23-31 H 9919194733) AGAP (test code = 2-16 L 3861991821) BUN (test code = 30 mg/dL 7-23 H 1243043961) GLUCOSE (test code = 246 mg/dL 70-110 H 7895753722) CREATININE (test code = 0.94 mg/dL 0.50-1.04 6576638080) TOTAL BILI (test code = 0.5 mg/dL 0.1-1.0 0192981676) CALCIUM (test code = 8.6 mg/dL 8.6-10.6 6847489310) T PROTEIN (test code = 5.9 g/dL 6.3-8.2 L 1328495916) ALBUMIN (test code = 3.2 g/dL 3.5-5.0 L 7888024134) ALK PHOS (test code = 81 U/L 34-122 6694921132) ALTv (test code = 24 U/L 5-35 1742-6) AST(SGOT) (test code = 23 U/L 13-40 6789372654) eGFR (test code = mL/min/1.73m2 3571069691) JENNIFFER (test code = JENNIFFER) Association of [...] tests). Lab Interpretation Abnormal (test code = 80346-1) [facility] 12:28:53 Test Item Value Reference Range Interpretation Comments MAGNESIUM (test code = 8637603266) 2.2 mg/dL 1.7-2.4 Lab Interpretation (test code = Normal 58459-3) [facility]20[facility] 12:28:33 Test Item Value Reference Range Interpretation Comments PHOSPHORUS (test code = 2382354347) 2.9 mg/dL 2.5-5.0 Lab Interpretation (test code = Normal 21578-6) [facility] CenterCREAT[facility] [id number] 12:28:13 Test Item Value Reference Range Interpretation Comments CK (test code = 0078408967) 21 U/L 33-194 L Lab Interpretation (test code = Abnormal 76283-0) [facility] GLUCOSE (AUTOMATED)2022-08-06 11:29:35 Test Item Value Reference Range Interpretation Comments POCT GLU (test code = 6491595004) 275 mg/dL 70-110 H Lab Interpretation (test code = Abnormal 12572-8) [facility] GLUCOSE (AUTOMATED)2022-08-06 06:56:17 Test Item Value Reference Range Interpretation Comments POCT GLU (test code = 7225871335) 248 mg/dL 70-110 H Lab Interpretation (test code = Abnormal 43640-5) [facility] GLUCOSE (AUTOMATED)2022-08-06 02:34:33 Test Item Value Reference Range Interpretation Comments POCT GLU (test code = 8796249427) 255 mg/dL 70-110 H Lab Interpretation (test code = Abnormal 74670-5) [facility] GLUCOSE (AUTOMATED)2022-08-05 23:01:47 Test Item Value Reference Range Interpretation Comments POCT GLU (test code = 4688230791) 277 mg/dL 70-110 H Lab Interpretation (test code = Abnormal 88637-5) [facility] [id number] 22:36:41 Test Item Value Reference Interpretation Comments Range TROPONIN I (test 0.001 ng/mL See_Comment [Automated code = 2708074034) message] The system which generated this result [...] biotin. Lab Interpretation Normal (test code = 33297-5) [facility] GLUCOSE (AUTOMATED)2022-08-05 17:57:05 Test Item Value Reference Range Interpretation Comments POCT GLU (test code = 6109804849) 306 mg/dL 70-110 H Lab Interpretation (test code = Abnormal 05318-1) [facility] GLUCOSE (AUTOMATED)2022-08-05 13:44:12 Test Item Value Reference Range Interpretation Comments POCT GLU (test code = 6702961908) 376 mg/dL 70-110 H Lab Interpretation (test code = Abnormal 77333-8) [facility] [id number] 04:02:57 Test Item Value Reference Interpretation Comments Range TROPONIN I (test 0.001 ng/mL See_Comment [Automated code = 2184029410) message] The system which generated this result [...] biotin. Lab Interpretation Normal (test code = 10652-6) [facility] [id number] 03:59:58 Test Item Value Reference Range Interpretation Comments NT-proBNP (test code 100 pg/mL See_Comment [Autom ated = 2187209382) message] The system which generated this result transmitted reference range : <=125. The reference range was not used to interpret this result as normal/abnormal . JENNIFFER (test code = JENNIFFER) Biotin has been reported to cause a negative bias, interpret results relative to patient's use of biotin. Lab Interpretation Normal (test code = 82425-9) [facility]. METABOLIC PANEL (59138)2022-06-05 03:50:53 Test Item Value Reference Range Interpretation Comments NA (test code = 139 mmol/L 135-145 1894145547) K (test code = 5.0 mmol/L 3.5-5.0 8699852464) CL (test code = 96 mmol/L 98-108 L 3426365088) CO2 TOTAL (test code = 38 mmol/L 23-31 H 1580558116) AGAP (test code = 2-16 4484259128) BUN (test code = 19 mg/dL 7-23 7020363584) GLUCOSE (test code = 186 mg/dL 70-110 H 8901908601) CREATININE (test code = 0.83 mg/dL 0.50-1.04 6697826958) TOTAL BILI (test code = 0.8 mg/dL 0.1-1.2 5673051455) CALCIUM (test code = 8.9 mg/dL 8.6-10.6 4580220060) T PROTEIN (test code = 7.4 g/dL 6.3-8.2 5510852457) ALBUMIN (test code = 4.3 g/dL 3.5-5.0 2598604549) ALK PHOS (test code = 102 U/L 34-122 0603793737) ALTv (test code = 33 U/L 5-35 2-6) AST(SGOT) (test code = 40 U/L 13-40 1461290838) eGFR (test code = mL/min/1.73m2 9350832769) JENNIFFER (test code = JENINFFER) Association of Glomerular Filtration Rate (GFR) and [...] tests). Lab Interpretation Abnormal (test code = 08876-3) [facility] WITH [id number] 03:35:15 Test Item Value Reference Range Interpretation Comments WBC (test code = See_Comment [Automated 3190-2) message] The sy stem which generated this result transmitted reference range : 4.30 - 11.10 10*3/?L. The reference range was not used to interpret this result as normal/abnormal . RBC (test code = See_Comment [Automated 165-8) message] The sy stem which generated this [...] RDW-SD (test code = 49.0 fL 39.0-49.9 27776-3) RDW-CV (test code = 15.4 % 12.0-15.5 788-0) PLT (test code = See_Comment [Automated 777-3) message] The sy stem which generated this result transmitted reference range : 166 - 358 10*3/ ?L. The reference r josselyn was not used to interpret this result as normal/abnormal . MPV (test code = 9.0 fL 9.5-12.9 L 92634-5) NRBC/100 WBC (test See_Comment [Automat ed code = 0712646055) message] The system which generated this result transmitted reference range : 0.0 - 10.0 /100 WBCs. The refer ence range was not u sed to interpret th is result as normal/abnormal . NRBC x10^3 (test code See_Comment [Auto mated = 5354193329) message] The s ystem which generated this result transmitted reference range : 10*3/?L. The reference range was not used to interpret this result as normal/abnormal . GRAN MAT (NEUT) % 85.5 % (test code = 770-8) IMM GRAN % (test code 0.60 % = 9621116683) LYMPH % (test code = 7.7 % 736-9) MONO % (test code = 4.0 % 5905-5) EOS % (test code = 1.6 % 713-8) BASO % (test code = 0.6 % 706-2) GRAN MAT x10^3(ANC) 8.05 10*3/uL 1.88-7.09 H (test code = 8552317835) IMM GRAN x10^3 (test 0.06 10*3/uL 0.00-0.06 code = 5085512578) LYMPH x10^3 (test code 0.73 10*3/uL 1.32-3.29 L = 731-0) MONO x10^3 (test code 0.38 10*3/uL 0.33-0.92 = 742-7) EOS x10^3 (test code = 0.15 10*3/uL 0.03-0.39 711-2) BASO x10^3 (test code 0.06 10*3/uL 0.01-0.07 = 704-7) Lab Interpretation Abnormal (test code = 02827-3) [facility] [id number] 06:26:12 Test Item Value Reference Interpretation Comments Range TROPONIN I (test 0.002 ng/mL See_Comment [Automated code = 3999654127) message] The system which generated this result [...] biotin. Lab Interpretation Normal (test code = 61165-0) [facility] [id number] 06:23:11 Test Item Value Reference Range Interpretation Comments NT-proBNP (test code 81 pg/mL See_Comment [Autom ated = 6149288715) message] The system which generated this result transmitted reference range : <=125. The reference range was not used to interpret this result as normal/abnormal . JENNIFFER (test code = JENNIFFER) Biotin has been reported to cause a negative bias, interpret results relative to patient's use of biotin. Lab Interpretation Normal (test code = 09049-2) [facility] + LACTIC [id number] 06:21:05 Test Item Value Reference Range Interpretation Comments PH (test code = 7.32-7.42 L 6344656474) PCO2 CELIA (test code = See_Comment H [Auto mated 7812516298) message] The sy stem which generated this result transmitted reference range : 41 - 51 mmHg. The reference range was not used to interpret this result as normal/abnormal . PO2 CELIA (test code = See_Comment L [Autom ated 3799583338) message] The sy stem which generated this result transmitted reference range : 25 - 40 mmHg. The reference range was not used to interpret this result as normal/abnormal . HCO3 CELIA (test code = See_Comment H [Auto mated 2293767646) message] The sy stem which generated this result transmitted reference range : 24 - 28 mEq/L. The reference range was not used to interpret this result as normal/abnormal . AC VBE(BEAKER) (test mEq/L code = 8145159415) THB CELIA (test code = 12.3 g/dL 12-16 5223669175) %O2HB CELIA (test code = 38.2 % 52-63 L 6551689516) %COHB CELIA (test code = 0.7 % 0-1.5 2074126836) %METHB CELIA (test code = 0.3 % 0.4-1.5 L 6617899958) VOL%O2 CELIA (test code = 6.6 % 6-12 5791684017) NA (test code = 138 mmol/L 135-145 7813431975) K+ (test code = 4.2 mmol/L 3.5-5 0561907702) AC CA IONZ (test code = 4.70 mg/dL 4.5-5.3 7065464491) GLUCOSE (test code = 178 mg/dL 70-110 H 0815147874) LACTIC ACID (test code 1.11 mmol/L 0.5-2.2 = 3795568685) Lab Interpretation Abnormal (test code = 11841-7) [facility]. METABOLIC PANEL (01755)2022-05-02 06:14:48 Test Item Value Reference Range Interpretation Comments NA (test code = 140 mmol/L 135-145 6378628841) K (test code = 4.4 mmol/L 3.5-5 7700177415) CL (test code = 97 mmol/L 98-108 L 0645239048) CO2 TOTAL (test code = 35 mmol/L 23-31 H 4734135357) AGAP (test code = 2-16 6935086573) BUN (test code = 23 mg/dL 7-23 7597415725) GLUCOSE (test code = 185 mg/dL 70-110 H 1198913275) CREATININE (test code = 1.16 mg/dL 0.5-1.04 H 1987077508) TOTAL BILI (test code = 0.4 mg/dL 0.1-1.7 8354510497) CALCIUM (test code = 9.4 mg/dL 8.6-10.6 7712260625) T PROTEIN (test code = 7.3 g/dL 6.3-8.2 0221480723) ALBUMIN (test code = 4.4 g/dL 3.5-5 0942283757) ALK PHOS (test code = 112 U/L 34-122 2534923633) ALTv (test code = 47 U/L 5-35 H 1742-6) AST(SGOT) (test code = 47 U/L 13-40 H 0258603636) eGFR (test code = mL/min/1.73m2 8557739148) JENNIFFER (test code = JENNIFFER) Association of [...] tests). Lab Interpretation Abnormal (test code = 22968-2) [facility] Test Item Value Reference Range Interpretation Comments MAGNESIUM (test code = 1819711035) 2.5 mg/dL 1.7-2.4 H Lab Interpretation (test code = Abnormal 81991-1) [facility] WITH [id number] 05:53:47 Test Item Value Reference Range Interpretation [...] RDW-SD (test code = 47.2 fL 39-49.9 33228-7) RDW-CV (test code = 14.8 % 12-15.5 788-0) PLT (test code = See_Comment [Automated 777-3) message] The sy stem which generated this result transmitted reference range : 166 - 358 10*3/ ?L. The reference r josselyn was not used to interpret this result as normal/abnormal . MPV (test code = 9.1 fL 9.5-12.9 L 81227-0) NRBC/100 WBC (test See_Comment [Automat ed code = 0444143666) message] The system which generated this result transmitted reference range : 0.0 - 10.0 /100 WBCs. The refer ence range was not u sed to interpret th is result as normal/abnormal . NRBC x10^3 (test code See_Comment [Auto mated = 4458794356) message] The s ystem which generated this result transmitted reference range : 10*3/?L. The reference range was not used to interpret this result as normal/abnormal . GRAN MAT (NEUT) % 82.2 % (test code = 770-8) IMM GRAN % (test code 0.40 % = 8636483272) LYMPH % (test code = 10.2 % 736-9) MONO % (test code = 4.4 % 5905-5) EOS % (test code = 1.8 % 713-8) BASO % (test code = 1.0 % 706-2) GRAN MAT x10^3(ANC) 6.37 10*3/uL 1.88-7.09 (test code = 8279597376) IMM GRAN x10^3 (test 0.03 10*3/uL 0-0.06 code = 7043271855) LYMPH x10^3 (test code 0.79 10*3/uL 1.32-3.29 L = 731-0) MONO x10^3 (test code 0.34 10*3/uL 0.33-0.92 = 742-7) EOS x10^3 (test code = 0.14 10*3/uL 0.03-0.39 711-2) BASO x10^3 (test code 0.08 10*3/uL 0.01-0.07 H = 704-7) Lab Interpretation Abnormal (test code = 47567-1) [id number] 03:36:53 Test Item Value Reference Range Interpretation Comments NT-proBNP (test code 102 pg/mL See_Comment [Autom ated = 9919345226) message] The system which generated this result transmitted reference range : <=125. The reference range was not used to interpret this result as normal/abnormal . JENNIFFER (test code = JENNIFFER) Biotin has been reported to cause a negative bias, interpret results relative to patient's use of biotin. Lab Interpretation Normal (test code = 19307-2) [facility] [id number] 03:23:03 Test Item Value Reference Interpretation Comments Range TROPONIN I (test See_Comment [Automated code = 5662723125) message] The system which generated this result [...] biotin. Lab Interpretation Normal (test code = 54058-2) [facility]. METABOLIC PANEL ([id number])2022-04-29 03:11:22 Test Item Value Reference Range Interpretation Comments NA (test code = 139 mmol/L 135-145 1040911345) K (test code = 4.6 mmol/L 3.5-5 5330083196) CL (test code = 94 mmol/L 98-108 L 0615056498) CO2 TOTAL (test code = 36 mmol/L 23-31 H 8454934515) AGAP (test code = 2-16 6371915971) BUN (test code = 23 mg/dL 7-23 4129620776) GLUCOSE (test code = 271 mg/dL 70-110 H 9079369537) CREATININE (test code = 0.91 mg/dL 0.5-1.04 0115801874) TOTAL BILI (test code = 0.5 mg/dL 0.1-1.7 5776062939) CALCIUM (test code = 9.3 mg/dL 8.6-10.6 5210365155) T PROTEIN (test code = 7.3 g/dL 6.3-8.2 3089226847) ALBUMIN (test code = 4.5 g/dL 3.5-5 1730569110) ALK PHOS (test code = 137 U/L 34-122 H 7902958312) ALTv (test code = 39 U/L 5-35 H 1742-6) AST(SGOT) (test code = 34 U/L 13-40 0472241551) eGFR (test code = mL/min/1.73m2 0765649059) JENNIFFER (test code = JENNIFFER) Association of [...] tests). Lab Interpretation Abnormal (test code = 83851-8) [facility]ACT[facility] THRMPLAS [id number] 03:09:40 Test Item Value Reference Range Interpretation Comments APTT Patient (test See_Comment [Automat ed code = 3173-2) message] The system which generated this result transmitted reference range : 23 - 38 Seconds . The reference range was not used to interpr et this result as normal/abnormal . JENNIFFER (test code = JENNIFFER) The [facility] patient population mean normal value for aPTT is 30 seconds. Lab Interpretation Normal (test code = 36681-3) [facility] CenterPROTHROMBIN [facility] / [id number] 03:07:39 Test Item Value Reference Range Interpretation [...] tions. Lab Interpretation (test Normal code = 77353-3) [facility] WITH [id number] 02:58:01 Test Item Value Reference Range Interpretation Comments WBC (test code = See_Comment H [Automated 9190-2) message] The system which generated this result [...] RDW-SD (test code = 47.9 fL 39-49.9 89046-8) RDW-CV (test code = 14.8 % 12-15.5 788-0) PLT (test code = See_Comment [Automated 777-3) message] The system which generated this result transmit alden reference range : 166 - 358 10*3/ ?L. The reference range was not u sed to interpret th is result as normal/abnormal . MPV (test code = 9.0 fL 9.5-12.9 L 42602-5) NRBC/100 WBC (test See_Comment [Automat ed code = 8092184166) message] The system which generated this result transmit alden reference range : 0.0 - 10.0 /100 WBCs. The reference range was not used to interpret this result as normal/abnormal . NRBC x10^3 (test code See_Comment [Auto mated = 2371973758) message] The system which generated this result transmit alden reference range : 10*3/?L. The reference range was not used to interpret this result as normal/abnormal . GRAN MAT (NEUT) % 85.4 % (test code = 770-8) IMM GRAN % (test code 0.40 % = 2872942713) LYMPH % (test code = 7.5 % 736-9) MONO % (test code = 5.0 % 5905-5) EOS % (test code = 1.1 % 713-8) BASO % (test code = 0.6 % 706-2) GRAN MAT x10^3(ANC) 10.20 10*3/uL 1.88-7.09 H (test code = 5186708175) IMM GRAN x10^3 (test 0.05 10*3/uL 0-0.06 code = 9911445480) LYMPH x10^3 (test code 0.89 10*3/uL 1.32-3.29 L = 731-0) MONO x10^3 (test code 0.60 10*3/uL 0.33-0.92 = 742-7) EOS x10^3 (test code = 0.13 10*3/uL 0.03-0.39 711-2) BASO x10^3 (test code 0.07 10*3/uL 0.01-0.07 = 704-7) Lab Interpretation Abnormal (test code = 87959-7) [facility] GLUCOSE (AUTOMATED)2022-02-27 20:32:53 Test Item Value Reference Range Interpretation Comments POCT GLU (test code = 3845200732) 236 mg/dL 70-110 H Lab Interpretation (test code = Abnormal 11918-4) [facility] GLUCOSE (AUTOMATED)2022-02-27 16:22:28 Test Item Value Reference Range Interpretation Comments POCT GLU (test code = 2286436906) 242 mg/dL 70-110 H Lab Interpretation (test code = Abnormal 21445-3) [facility] GLUCOSE (AUTOMATED)2022-02-27 12:34:52 Test Item Value Reference Range Interpretation Comments POCT GLU (test code = 3719094275) 195 mg/dL 70-110 H Lab Interpretation (test code = Abnormal 41270-3) [facility] GLUCOSE (AUTOMATED)2022-02-26 21:43:40 Test Item Value Reference Range Interpretation Comments POCT GLU (test code = 5214564498) 315 mg/dL 70-110 H Lab Interpretation (test code = Abnormal 24827-6) [facility] GLUCOSE (AUTOMATED)2022-02-26 17:51:09 Test Item Value Reference Range Interpretation Comments POCT GLU (test code = 4286023260) 316 mg/dL 70-110 H Lab Interpretation (test code = Abnormal 03120-5) [facility] GLUCOSE (AUTOMATED)2022-02-26 14:27:56 Test Item Value Reference Range Interpretation Comments POCT GLU (test code = 3495991898) 226 mg/dL 70-110 H Lab Interpretation (test code = Abnormal 77221-1) [facility] Center[facility] [id number] 10:01:38 Test Item Value Reference Range Interpretation Comments Blood Culture-Aerobic No organisms No growth Previo us (test code = 85734-1) isolated prelim inary verified result was Culture [...] Culture-Anaerobic isolated preliminar y (test code = 24514-5) verifi ed result was Culture In Progress [...] CDT Lab Interpretation Normal (test code = 62352-8) [facility] GLUCOSE (AUTOMATED)2022-02-26 01:34:43 Test Item Value Reference Range Interpretation Comments POCT GLU (test code = 8735963566) 253 mg/dL 70-110 H Lab Interpretation (test code = Abnormal 51445-3) [facility] GLUCOSE (AUTOMATED)2022-02-25 20:41:07 Test Item Value Reference Range Interpretation Comments POCT GLU (test code = 4626376995) 260 mg/dL 70-110 H Lab Interpretation (test code = Abnormal 30847-3) [facility] GLUCOSE (AUTOMATED)2022-02-25 16:40:46 Test Item Value Reference Range Interpretation Comments POCT GLU (test code = 0275811290) 245 mg/dL 70-110 H Lab Interpretation (test code = Abnormal 73836-5) [facility] Arterial Blood Gas.2022-02-25 14:15:07 Test Item Value Reference Range Interpretation Comments PH (test code = 2) 7.35-7.45 H PCO2 (test code = See_Comment H [Automate d message] 0159659157) The system Glim[employer]se generated this result transmitted ref erence range: 35 - 45 mmHg. The reference r josselyn was not used to interpret this result as normal/abnor mal. PO2 (test code = See_Comment [Automated message] 6552853568) The system [employer] generated this result transmitted ref erence range: 80 - 100 mmHg. The reference r josselyn was not used to interpret this result as normal/abnor mal. HCO3 (test code = See_Comment H [Automate d message] 9104805797) The system [employer] generated this result transmitted ref erence range: 22 - 26 mEq/L. The reference r josselyn was not used to interpret this result as normal/abnor mal. BE (test code = See_Comment H [Automated message] 2865509320) The system G[employer] generated this result transmitted ref erence range: -3.0 - 3 .0 mEq/L. The refe rence range was not u sed to interpret this result as normal/abnor mal. Lab Interpretation (test Abnormal code = 30105-5) [facility] GLUCOSE (AUTOMATED)2022-02-25 12:53:11 Test Item Value Reference Range Interpretation Comments POCT GLU (test code = 6800237878) 194 mg/dL 70-110 H Lab Interpretation (test code = Abnormal 59531-2) [facility] METABOLIC PANEL (NA, K, CL, CO2, GLUCOSE, BUN, CREATININE, [place])2022-02-25 12:18:22 Test Item Value Reference Range Interpretation Comments NA (test code = 135 mmol/L 135-145 5663200335) K (test code = 3.5 mmol/L 3.5-5 9671215805) CL (test code = 97 mmol/L 98-108 L 0613151420) CO2 TOTAL (test code = 37 mmol/L 23-31 H 4403577226) AGAP (test code = 2-16 L 1369541704) BUN (test code = 36 mg/dL 7-23 H 6479119466) GLUCOSE (test code = 172 mg/dL 70-110 H 4924221679) CREATININE (test code = 1.57 mg/dL 0.5-1.04 H 2861371911) CALCIUM (test code = 9.0 mg/dL 8.6-10.6 5953825889) eGFR (test code = mL/min/1.73m2 8011778937) JENNIFFER (test code = JENNIFFER) Association of [...] tests). Lab Interpretation Abnormal (test code = 09815-7) [facility] Test Item Value Reference Range Interpretation Comments MAGNESIUM (test code = 0027771225) 1.7 mg/dL 1.7-2.4 Lab Interpretation (test code = Normal 88968-4) [facility] 12[facility]18:22 Test Item Value Reference Range Interpretation Comments PHOSPHORUS (test code = 4278324051) 2.7 mg/dL 2.5-5 Lab Interpretation (test code = Normal 99622-1) [facility] GLUCOSE (AUTOMATED)2022-02-25 01:26:19 Test Item Value Reference Range Interpretation Comments POCT GLU (test code = 4330751706) 180 mg/dL 70-110 H Lab Interpretation (test code = Abnormal 83668-8) [facility] GLUCOSE (AUTOMATED)2022-02-24 20:51:23 Test Item Value Reference Range Interpretation Comments POCT GLU (test code = 5822460214) 206 mg/dL 70-110 H Lab Interpretation (test code = Abnormal 26705-4) [facility]2022-02-24 17:04:22 Test Item Value Reference Range Interpretation Comments PH (test code = 2) 7.35-7.45 H PCO2 (test code = See_Comment [Automate d message] 2281500598) The system [employer] generated this result transmitted ref erence range: 35 - 45 mmHg. The reference r josselyn was not used to interpret this result as normal/abnor mal. PO2 (test code = See_Comment H [Automated message] 3866038646) The system [employer] generated this result transmitted ref erence range: 80 - 100 mmHg. The reference r josselyn was not used to interpret this result as normal/abnor mal. HCO3 (test code = See_Comment H [Automate d message] 4005832318) The system [employer] generated this result transmitted ref erence range: 22 - 26 mEq/L. The reference r josselyn was not used to interpret this result as normal/abnor mal. BE (test code = See_Comment H [Automated message] 2649763822) The system [employer] generated this result transmitted ref erence range: -3.0 - 3 .0 mEq/L. The refe rence range was not u sed to interpret this result as normal/abnor mal. Lab Interpretation (test Abnormal code = 63802-3) [facility] GLUCOSE (AUTOMATED)2022-02-24 17:00:46 Test Item Value Reference Range Interpretation Comments POCT GLU (test code = 6610065138) 230 mg/dL 70-110 H Lab Interpretation (test code = Abnormal 45003-4) [id number] 13:31:58 Test Item Value Reference Interpretation Comments Range TROPONIN I (test 0.002 ng/mL See_Comment [Automated code = 0176245064) message] The system which generated this result [...] biotin. Lab Interpretation Normal (test code = 31916-7) [facility] GLUCOSE (AUTOMATED)2022-02-24 13:24:56 Test Item Value Reference Range Interpretation Comments POCT GLU (test code = 3867469626) 252 mg/dL 70-110 H Lab Interpretation (test code = Abnormal 19653-9) [facility] METABOLIC PANEL (NA, K, CL, CO2, GLUCOSE, BUN, CREATININE, CA)2022-02-24 13:21:38 Test Item Value Reference Range Interpretation Comments NA (test code = 138 mmol/L 135-145 2281328979) K (test code = 4.3 mmol/L 3.5-5 9175650567) CL (test code = 94 mmol/L 98-108 L 5873549111) CO2 TOTAL (test code = 39 mmol/L 23-31 H 7052621703) AGAP (test code = 2-16 8789630478) BUN (test code = 31 mg/dL 7-23 H 9345578677) GLUCOSE (test code = 237 mg/dL 70-110 H 5366368924) CREATININE (test code = 1.46 mg/dL 0.5-1.04 H 5941796001) CALCIUM (test code = 9.2 mg/dL 8.6-10.6 4539506196) eGFR (test code = mL/min/1.73m2 4207138816) JENNIFFER (test code = JENNIFFER) Association of [...] tests). Lab Interpretation Abnormal (test code = 99903-5) [facility] [id number] 03:18:42 Test Item Value Reference Range Interpretation Comments LACTIC ACID (test code = 0.92 mmol/L 0.5-2.2 2128197721) Lab Interpretation (test code = Normal 83781-1) [facility] GLUCOSE (AUTOMATED)2022-02-24 01:21:36 Test Item Value Reference Range Interpretation Comments POCT GLU (test code = 4252401734) 200 mg/dL 70-110 H Lab Interpretation (test code = Abnormal 31402-9) [facility] GLUCOSE (AUTOMATED)2022-02-23 22:45:38 Test Item Value Reference Range Interpretation Comments POCT GLU (test code = 0175826658) 246 mg/dL 70-110 H Lab Interpretation (test code = Abnormal 40805-1) [facility] GLUCOSE (AUTOMATED)2022-02-23 21:47:33 Test Item Value Reference Range Interpretation Comments POCT GLU (test code = 261 mg/dL 70-110 H Notifi ed Provider [id number]) Lab Interpretation (test Abnormal code = 37653-8) [facility] + Lactic [id number] 18:40:55 Test Item Value Reference Range Interpretation Comments PH (test code = 2) 7.35-7.45 PCO2 (test code = See_Comment H [Automate d 8236414468) message] The sy stem which generated this result transmitted reference range : 35 - 45 mmHg. The reference range was not used to interpret this result as normal/abnormal . PO2 (test code = See_Comment H [Automated 2957415945) message] The sy stem which generated this result transmitted reference range : 80 - 100 mmHg. The reference range was not used to interpret this result as normal/abnormal . HCO3 (test code = See_Comment H [Automate d 3145631991) message] The sy stem which generated this result transmitted reference range : 22 - 26 mEq/L. The reference range was not used to interpret this result as normal/abnormal . BE (test code = See_Comment H [Automated 1649085396) message] The sy stem which generated this result transmitted reference range : -3.0 - 3.0 mEq/ L. The reference r josselyn was not used to interpret this result as normal/abnormal . THB (test code = 10.1 g/dL 12-16 L 2138346420) %O2HB (test code = 98.2 % 94-99 4218819422) %COHB ART (test code = 0.0 % 0-1.5 7154330768) %METHB ART (test code = 0.2 % 0.4-1.5 L 3032159320) VOL%O2 ART (test code = 14.2 % 15-23 L 1614236529) NA (test code = 142 mmol/L 135-145 4894539357) K+ (test code = 3.9 mmol/L 3.5-5 1513281269) AC CA IONZ (test code = 4.60 mg/dL 4.5-5.3 7576044391) GLUCOSE (test code = 201 mg/dL 70-110 H 9779639719) LACTIC ACID (test code 0.99 mmol/L 0.5-2.2 = 7082007755) Lab Interpretation Abnormal (test code = 29916-5) [facility] GLUCOSE (AUTOMATED)2022-02-23 17:20:26 Test Item Value Reference Range Interpretation Comments POCT GLU (test code = 222 mg/dL 70-110 H Notifi ed Provider 5764152316) Lab Interpretation (test Abnormal code = 86974-2) [facility] GLUCOSE (AUTOMATED)2022-02-23 13:23:49 Test Item Value Reference Range Interpretation Comments POCT GLU (test code = 188 mg/dL 70-110 H Notifi ed Provider [id number]) Lab Interpretation (test Abnormal code = 12233-6) [facility] GLUCOSE (AUTOMATED)2022-02-22 21:57:50 Test Item Value Reference Range Interpretation Comments POCT GLU (test code = 4159401135) 240 mg/dL 70-110 H Lab Interpretation (test code = Abnormal 17289-3) [facility] GLUCOSE (AUTOMATED)2022-02-22 18:33:41 Test Item Value Reference Range Interpretation Comments POCT GLU (test code = 6290797614) 247 mg/dL 70-110 H Lab Interpretation (test code = Abnormal 89505-9) [facility] [id number] 15:54:13 Test Item Value Reference Range Interpretation Comments URINE CULTURE (test No aerobic growth (< code = 630-4) 1000 CFU/mL) [facility] (NA, K, CL, CO2, GLUCOSE, BUN, CREATININE, CA)2022-02-22 13:03:42 Test Item Value Reference Range Interpretation Comments NA (test code = 140 mmol/L 135-145 6612883693) K (test code = 3.7 mmol/L 3.5-5 5153493960) CL (test code = 95 mmol/L 98-108 L 4301900655) CO2 TOTAL (test code = 40 mmol/L 23-31 H 0214040635) AGAP (test code = 2-16 3123359572) BUN (test code = 19 mg/dL 7-23 4357939527) GLUCOSE (test code = 167 mg/dL 70-110 H 1773743842) CREATININE (test code = 0.85 mg/dL 0.5-1.04 3567106036) CALCIUM (test code = 9.0 mg/dL 8.6-10.6 2409838031) eGFR (test code = mL/min/1.73m2 5969956318) JENNIFFER (test code = JENNIFFER) Association of [...] tests). Lab Interpretation Abnormal (test code = 89524-9) [facility] 12:14:43 Test Item Value Reference Range Interpretation Comments MAGNESIUM (test code = 9513642037) 2.3 mg/dL 1.7-2.4 Lab Interpretation (test code = Normal 88480-1) [facility] WITH [id number] 11:52:02 Test Item Value Reference Range Interpretation [...] RDW-SD (test code = 48.7 fL 39-49.9 87073-4) RDW-CV (test code = 15.2 % 12-15.5 788-0) PLT (test code = See_Comment [Automated 777-3) message] The sy stem which generated this result transmitted reference range : 166 - 358 10*3/ ?L. The reference r josselyn was not used to interpret this result as normal/abnormal . MPV (test code = 8.9 fL 9.5-12.9 L 61810-6) NRBC/100 WBC (test See_Comment [Automat ed code = 4394984497) message] The system which generated this result transmitted reference range : 0.0 - 10.0 /100 WBCs. The refer ence range was not u sed to interpret th is result as normal/abnormal . NRBC x10^3 (test code See_Comment [Auto mated = 2075969976) message] The s ystem which generated this result transmitted reference range : 10*3/?L. The reference range was not used to interpret this result as normal/abnormal . GRAN MAT (NEUT) % 70.5 % (test code = 770-8) IMM GRAN % (test code 0.70 % = 9881579465) LYMPH % (test code = 18.8 % 736-9) MONO % (test code = 7.9 % 5905-5) EOS % (test code = 1.2 % 713-8) BASO % (test code = 0.9 % 706-2) GRAN MAT x10^3(ANC) 4.04 10*3/uL 1.88-7.09 (test code = 9118181672) IMM GRAN x10^3 (test 0.04 10*3/uL 0-0.06 code = 4325470632) LYMPH x10^3 (test code 1.08 10*3/uL 1.32-3.29 L = 731-0) MONO x10^3 (test code 0.45 10*3/uL 0.33-0.92 = 742-7) EOS x10^3 (test code = 0.07 10*3/uL 0.03-0.39 711-2) BASO x10^3 (test code 0.05 10*3/uL 0.01-0.07 = 704-7) Lab Interpretation Abnormal (test code = 44490-1) [facility] GLUCOSE (AUTOMATED)2022-02-22 01:40:53 Test Item Value Reference Range Interpretation Comments POCT GLU (test code = 8769369854) 246 mg/dL 70-110 H Lab Interpretation (test code = Abnormal 96859-2) [facility] 22:04:44 Test Item Value Reference Range Interpretation Comments POCT GLU (test code = 5360505296) 293 mg/dL 70-110 H Lab Interpretation (test code = Abnormal 46572-6) [facility] WITHOUT [id number] 16:03:44 Test Item Value Reference Range Interpretation Comments WBC (test code = 6690-2) See_Comment [A utomated message] The system [employer] generated this result transmit alden reference range : 4.30 - 11.10 10*3/?L. The reference range was not used to interpret this result as normal/abnormal . RBC (test code = 789-8) See_Comment L [Au tomated message] The system [employer] generated this result transmit alden reference range [...] 777-3) See_Comment [Au tomated message] The system [employer] generated this result transmit alden reference range : 166 - 358 10*3/?L. The reference range was not used to interpret this result as normal/abnormal . MPV (test code = 9.2 fL 9.5-12.9 L 95907-3) RDW-CV (test code = 15.7 % 12-15.5 H 788-0) RDW-SD (test code = 50.9 fL 39-49.9 H 63419-5) NRBC x10^3 (test code = See_Comment [Au tomated message] 9565566874) The system [employer] h generated this result transmit alden reference range : 10*3/?L. The reference range was not used to interpret this result as normal/abnormal . NRBC/100 WBC (test code See_Comment [Au tomated message] = 5925275866) The system [employer] generated this result transmit alden reference range : 0.0 - 10.0 /100 WBC s. The reference r josselyn was not used to interpret this result as normal/abnormal . IPF % (test code = 6261235200) Lab Interpretation (test Abnormal code = 50829-5) [facility]22-02-21 14:46:08 Test Item Value Reference Range Interpretation Comments POCT GLU (test code = 6539988015) 157 mg/dL 70-110 H Lab Interpretation (test code = Abnormal 45102-0) [facility] METABOLIC PANEL (NA, K, CL, CO2, GLUCOSE, BUN, CREATININE, CA)2022-02-21 09:05:34 Test Item Value Reference Range Interpretation Comments NA (test code = 143 mmol/L 135-145 1339027134) K (test code = 3.8 mmol/L 3.5-5 2554198845) CL (test code = 99 mmol/L 98-108 1001072319) CO2 TOTAL (test code = 37 mmol/L 23-31 H 3147298422) AGAP (test code = 2-16 3438866685) BUN (test code = 17 mg/dL 7-23 0145712907) GLUCOSE (test code = 140 mg/dL 70-110 H 9570469105) CREATININE (test code = 0.85 mg/dL 0.5-1.04 9293091798) CALCIUM (test code = 8.9 mg/dL 8.6-10.6 9587895106) eGFR (test code = mL/min/1.73m2 8955791578) JENNIFFER (test code = JENNIFFER) Association of [...] tests). Lab Interpretation Abnormal (test code = 54579-3) [facility] 08:53:13 Test Item Value Reference Range Interpretation Comments MAGNESIUM (test code = 5373180624) 2.3 mg/dL 1.7-2.4 Lab Interpretation (test code = Normal 34009-9) [facility] WITH [id number] 08:13:50 Test Item Value Reference Range Interpretation Comments WBC (test code = See_Comment [Automated 8494-2) message] The sy stem which generated this result transmitted reference range : 4.30 - 11.10 10*3/?L. The reference range was not used to interpret this result as normal/abnormal . RBC (test code = See_Comment L [Automated 751-8) message] The sy stem which generated this [...] (test code = 51.5 fL 39-49.9 H 77989-7) RDW-CV (test code = 15.5 % 12-15.5 788-0) PLT (test code = See_Comment L [Automated 777-3) message] The sy stem which generated this result transmitted reference range : 166 - 358 10*3/ ?L. The reference r josselyn was not used to interpret this result as normal/abnormal . MPV (test code = 9.0 fL 9.5-12.9 L 16754-6) NRBC/100 WBC (test See_Comment [Automat ed code = 3816164070) message] The system which generated this result transmitted reference range : 0.0 - 10.0 /100 WBCs. The refer ence range was not u sed to interpret th is result as normal/abnormal . NRBC x10^3 (test code See_Comment [Auto mated = 1136857470) message] The s ystem which generated this result transmitted reference range : 10*3/?L. The reference range was not used to interpret this result as normal/abnormal . GRAN MAT (NEUT) % 68.2 % (test code = 770-8) IMM GRAN % (test code 0.60 % = 8808928647) LYMPH % (test code = 20.0 % 736-9) MONO % (test code = 8.1 % 5905-5) EOS % (test code = 2.0 % 713-8) BASO % (test code = 1.1 % 706-2) GRAN MAT x10^3(ANC) 3.72 10*3/uL 1.88-7.09 (test code = 6035330876) IMM GRAN x10^3 (test 0.03 10*3/uL 0-0.06 code = 9231271075) LYMPH x10^3 (test code 1.09 10*3/uL 1.32-3.29 L = 731-0) MONO x10^3 (test code 0.44 10*3/uL 0.33-0.92 = 742-7) EOS x10^3 (test code = 0.11 10*3/uL 0.03-0.39 711-2) BASO x10^3 (test code 0.06 10*3/uL 0.01-0.07 = 704-7) Lab Interpretation Abnormal (test code = 96297-4) [facility] 02:41:53 Test Item Value Reference Range Interpretation Comments POCT GLU (test code = 2518471739) 175 mg/dL 70-110 H Lab Interpretation (test code = Abnormal 92388-7) [facility] Arterial Blood Gas.2022-02-20 23:27:23 Test Item Value Reference Range Interpretation Comments PH (test code = 2) 7.35-7.45 L PCO2 (test code = See_Comment H [Automate d message] 6284135639) The system [employer] generated this result transmitted ref erence range: 35 - 45 mmHg. The reference r josselyn was not used to interpret this result as normal/abnor mal. PO2 (test code = See_Comment H [Automated message] 6884826992) The system [employer] generated this result transmitted ref erence range: 80 - 100 mmHg. The reference r josselyn was not used to interpret this result as normal/abnor mal. HCO3 (test code = See_Comment H [Automate d message] 7628923827) The system [employer] generated this result transmitted ref erence range: 22 - 26 mEq/L. The reference r josselyn was not used to interpret this result as normal/abnor mal. BE (test code = See_Comment H [Automated message] 5957128696) The system [employer] generated this result transmitted ref erence range: -3.0 - 3 .0 mEq/L. The refe rence range was not u sed to interpret this result as normal/abnor mal. Lab Interpretation (test Abnormal code = 67106-9) [facility] WITH [id number] 20:32:34 Test Item Value Reference Range Interpretation [...] (test code = 51.8 fL 39-49.9 H 42404-9) RDW-CV (test code = 15.7 % 12-15.5 H 788-0) PLT (test code = See_Comment [Automated 777-3) message] The sy stem which generated this result transmitted reference range : 166 - 358 10*3/ ?L. The reference r josselyn was not used to interpret this result as normal/abnormal . MPV (test code = 8.9 fL 9.5-12.9 L 68750-9) NRBC/100 WBC (test See_Comment [Automat ed code = 8843000327) message] The system which generated this result transmitted reference range : 0.0 - 10.0 /100 WBCs. The refer ence range was not u sed to interpret th is result as normal/abnormal . NRBC x10^3 (test code See_Comment [Auto mated = 6721921457) message] The s ystem which generated this result transmitted reference range : 10*3/?L. The reference range was not used to interpret this result as normal/abnormal . GRAN MAT (NEUT) % 72.1 % (test code = 770-8) IMM GRAN % (test code 1.20 % = 2382867588) LYMPH % (test code = 16.2 % 736-9) MONO % (test code = 7.1 % 5905-5) EOS % (test code = 2.3 % 713-8) BASO % (test code = 1.1 % 706-2) GRAN MAT x10^3(ANC) 7.28 10*3/uL 1.88-7.09 H (test code = 1434384608) IMM GRAN x10^3 (test 0.12 10*3/uL 0-0.06 H code = 3165866514) LYMPH x10^3 (test code 1.63 10*3/uL 1.32-3.29 = 731-0) MONO x10^3 (test code 0.72 10*3/uL 0.33-0.92 = 742-7) EOS x10^3 (test code = 0.23 10*3/uL 0.03-0.39 711-2) BASO x10^3 (test code 0.11 10*3/uL 0.01-0.07 H = 704-7) Lab Interpretation Abnormal (test code = 31920-4) [facility] GLUCOSE (AUTOMATED)2022-02-17 21:46:17 Test Item Value Reference Range Interpretation Comments POCT GLU (test code = 1167634231) 181 mg/dL 70-110 H Lab Interpretation (test code = Abnormal 07010-2) [facility] GLUCOSE (AUTOMATED)2022-02-17 17:09:48 Test Item Value Reference Range Interpretation Comments POCT GLU (test code = 6594658106) 191 mg/dL 70-110 H Lab Interpretation (test code = Abnormal 53698-8) [facility] GLUCOSE (AUTOMATED)2022-02-17 13:07:24 Test Item Value Reference Range Interpretation Comments POCT GLU (test code = 5487789213) 185 mg/dL 70-110 H Lab Interpretation (test code = Abnormal 76804-1) [facility] # [id number] 02:02:05 Test Item Value Reference Range Interpretation Comments Blood Culture-Aerobic No organisms No growth Previo us (test code = 57755-0) isolated prelim inary verified result was Culture [...] Culture-Anaerobic isolated preliminar y (test code = 56247-9) verifi ed result was Culture In Progress [...] CDT Lab Interpretation Normal (test code = 37835-7) [facility] GLUCOSE (AUTOMATED)2022-02-17 00:50:32 Test Item Value Reference Range Interpretation Comments POCT GLU (test code = 8249216136) 152 mg/dL 70-110 H Lab Interpretation (test code = Abnormal 02603-1) [facility] GLUCOSE (AUTOMATED)2022-02-16 21:47:16 Test Item Value Reference Range Interpretation Comments POCT GLU (test code = 3283656846) 183 mg/dL 70-110 H Lab Interpretation (test code = Abnormal 32955-2) [facility] GLUCOSE (AUTOMATED)2022-02-16 17:08:26 Test Item Value Reference Range Interpretation Comments POCT GLU (test code = 3364484926) 160 mg/dL 70-110 H Lab Interpretation (test code = Abnormal 59853-3) [facility] GLUCOSE (AUTOMATED)2022-02-16 13:06:01 Test Item Value Reference Range Interpretation Comments POCT GLU (test code = 3081923426) 140 mg/dL 70-110 H Lab Interpretation (test code = Abnormal 56945-0) [facility] GLUCOSE (AUTOMATED)2022-02-16 08:33:41 Test Item Value Reference Range Interpretation Comments POCT GLU (test code = 4118140468) 193 mg/dL 70-110 H Lab Interpretation (test code = Abnormal 27760-0) [facility] GLUCOSE (AUTOMATED)2022-02-16 04:30:38 Test Item Value Reference Range Interpretation Comments POCT GLU (test code = 1350993385) 167 mg/dL 70-110 H Lab Interpretation (test code = Abnormal 20280-7) [facility] GLUCOSE (AUTOMATED)2022-02-16 00:40:50 Test Item Value Reference Range Interpretation Comments POCT GLU (test code = 0348961492) 190 mg/dL 70-110 H Lab Interpretation (test code = Abnormal 85159-7) [facility] GLUCOSE (AUTOMATED)2022-02-15 21:26:07 Test Item Value Reference Range Interpretation Comments POCT GLU (test code = 0820677424) 189 mg/dL 70-110 H Lab Interpretation (test code = Abnormal 06275-6) [facility] GLUCOSE (AUTOMATED)2022-02-15 17:00:52 Test Item Value Reference Range Interpretation Comments POCT GLU (test code = 6502947560) 213 mg/dL 70-110 H Lab Interpretation (test code = Abnormal 95635-4) [facility] GLUCOSE (AUTOMATED)2022-02-15 12:48:04 Test Item Value Reference Range Interpretation Comments POCT GLU (test code = 2501552668) 145 mg/dL 70-110 H Lab Interpretation (test code = Abnormal 69392-8) [facility]. METABOLIC PANEL (06976)2022-02-15 08:28:08 Test Item Value Reference Range Interpretation Comments NA (test code = 140 mmol/L 135-145 5178374453) K (test code = 4.0 mmol/L 3.5-5 1480752152) CL (test code = 100 mmol/L 98-108 2298594510) CO2 TOTAL (test code = 35 mmol/L 23-31 H 0889823374) AGAP (test code = 2-16 7394855896) BUN (test code = 12 mg/dL 7-23 7005506602) GLUCOSE (test code = 161 mg/dL 70-110 H 5455343467) CREATININE (test code = 1.20 mg/dL 0.5-1.04 H 1195936155) TOTAL BILI (test code = 0.6 mg/dL 0.1-1.2 5718064953) CALCIUM (test code = 8.7 mg/dL 8.6-10.6 3915305924) T PROTEIN (test code = 6.8 g/dL 6.3-8.2 5218811764) ALBUMIN (test code = 3.7 g/dL 3.5-5 3961890117) ALK PHOS (test code = 121 U/L 34-122 7836672651) ALTv (test code = 35 U/L 5-35 1742-6) AST(SGOT) (test code = 34 U/L 13-40 1210609795) eGFR (test code = mL/min/1.73m2 4861690027) JENNIFFER (test code = JENNIFFER) Association of [...] tests). Lab Interpretation Abnormal (test code = 70472-4) [facility] 08[facility]28:08 Test Item Value Reference Range Interpretation Comments MAGNESIUM (test code = 8810999876) 2.4 mg/dL 1.7-2.4 Lab Interpretation (test code = Normal 75101-4) [facility] WITHOUT [id number] 08:07:28 Test Item Value Reference Range Interpretation Comments WBC (test code = 6690-2) See_Comment [A utomated message] The system [employer] generated this result transmit alden reference range : 4.30 - 11.10 10*3/?L. The reference range was not used to interpret this result as normal/abnormal . RBC (test code = 789-8) See_Comment L [Au tomated message] The system [employer] generated this result transmit alden reference range [...] 777-3) See_Comment [Au tomated message] The system [employer] generated this result transmit alden reference range : 166 - 358 10*3/?L. The reference range was not used to interpret this result as normal/abnormal . MPV (test code = 8.9 fL 9.5-12.9 L 20566-7) RDW-CV (test code = 16.2 % 12-15.5 H 788-0) RDW-SD (test code = 52.6 fL 39-49.9 H 30013-8) NRBC x10^3 (test code = See_Comment [Au tomated message] 5425008833) The system [employer] generated this result transmit alden reference range : 10*3/?L. The reference range was not used to interpret this result as normal/abnormal . NRBC/100 WBC (test code See_Comment [Au tomated message] = 6841554631) The system [facility] generated this result transmit alden reference range : 0.0 - 10.0 /100 WBC s. The reference r josselyn was not used to interpret this result as normal/abnormal . IPF % (test code = 0518512804) Lab Interpretation (test Abnormal code = 39709-2) [facility] GLUCOSE (AUTOMATED)2022-02-15 08:03:53 Test Item Value Reference Range Interpretation Comments POCT GLU (test code = 0295418724) 179 mg/dL 70-110 H Lab Interpretation (test code = Abnormal 87192-6) [facility] GLUCOSE (AUTOMATED)2022-02-15 04:16:20 Test Item Value Reference Range Interpretation Comments POCT GLU (test code = 6643134159) 215 mg/dL 70-110 H Lab Interpretation (test code = Abnormal 73462-9) [facility] GLUCOSE (AUTOMATED)2022-02-15 00:50:30 Test Item Value Reference Range Interpretation Comments POCT GLU (test code = 5474232334) 229 mg/dL 70-110 H Lab Interpretation (test code = Abnormal 77291-8) [facility] GLUCOSE (AUTOMATED)2022-02-14 21:23:56 Test Item Value Reference Range Interpretation Comments POCT GLU (test code = 2596974066) 214 mg/dL 70-110 H Lab Interpretation (test code = Abnormal 58005-7) [facility] GLUCOSE (AUTOMATED)2022-02-14 19:38:54 Test Item Value Reference Range Interpretation Comments POCT GLU (test code = 0001006131) 236 mg/dL 70-110 H Lab Interpretation (test code = Abnormal 17754-7) [facility] GLUCOSE (AUTOMATED)2022-02-14 16:28:53 Test Item Value Reference Range Interpretation Comments POCT GLU (test code = 7114604840) 245 mg/dL 70-110 H Lab Interpretation (test code = Abnormal 42516-1) [facility] GLUCOSE (AUTOMATED)2022-02-14 14:17:55 Test Item Value Reference Range Interpretation Comments POCT GLU (test code = 9875673977) 259 mg/dL 70-110 H Lab Interpretation (test code = Abnormal 70899-9) [facility]. METABOLIC PANEL ([id number])2022-02-14 10:33:43 Test Item Value Reference Range Interpretation Comments NA (test code = 139 mmol/L 135-145 6313379491) K (test code = 3.9 mmol/L 3.5-5 9062128137) CL (test code = 102 mmol/L 98-108 5544134760) CO2 TOTAL (test code = 33 mmol/L 23-31 H 4792536880) AGAP (test code = 2-16 4423327760) BUN (test code = 11 mg/dL 7-23 0297068789) GLUCOSE (test code = 162 mg/dL 70-110 H 2574502019) CREATININE (test code = 1.05 mg/dL 0.5-1.04 H 1878094868) TOTAL BILI (test code = 0.5 mg/dL 0.1-1.0 6672221925) CALCIUM (test code = 8.2 mg/dL 8.6-10.6 L 9309701306) T PROTEIN (test code = 6.1 g/dL 6.3-8.2 L 9539309783) ALBUMIN (test code = 3.2 g/dL 3.5-5 L 8075293517) ALK PHOS (test code = 113 U/L 34-122 6121127939) ALTv (test code = 37 U/L 5-35 H 1742-6) AST(SGOT) (test code = 29 U/L 13-40 8973426700) eGFR (test code = mL/min/1.73m2 5693155629) JENNIFFER (test code = JENNIFFER) Association of [...] tests). Lab Interpretation Abnormal (test code = 11318-6) [facility] Test Item Value Reference Range Interpretation Comments MAGNESIUM (test code = 6577777479) 2.2 mg/dL 1.7-2.4 Lab Interpretation (test code = Normal 24591-8) [facility] WITH [id number] 10:26:41 Test Item Value Reference Range Interpretation [...] (test code = 51.8 fL 39-49.9 H 85609-9) RDW-CV (test code = 16.1 % 12-15.5 H 788-0) PLT (test code = See_Comment [Automated 777-3) message] The sy stem which generated this result transmitted reference range : 166 - 358 10*3/ ?L. The reference r josselyn was not used to interpret this result as normal/abnormal . MPV (test code = 9.5 fL 9.5-12.9 79623-9) NRBC/100 WBC (test See_Comment [Automat ed code = 3993098154) message] The system which generated this result transmitted reference range : 0.0 - 10.0 /100 WBCs. The refer ence range was not u sed to interpret th is result as normal/abnormal . NRBC x10^3 (test code See_Comment [Auto mated = 1028454404) message] The s ystem which generated this result transmitted reference range : 10*3/?L. The reference range was not used to interpret this result as normal/abnormal . GRAN MAT (NEUT) % 69.7 % (test code = 770-8) IMM GRAN % (test code 0.80 % = 4398750167) LYMPH % (test code = 19.6 % 736-9) MONO % (test code = 6.9 % 5905-5) EOS % (test code = 2.2 % 713-8) BASO % (test code = 0.8 % 706-2) GRAN MAT x10^3(ANC) 3.44 10*3/uL 1.88-7.09 (test code = 2167914327) IMM GRAN x10^3 (test 0.04 10*3/uL 0-0.06 code = 9209867822) LYMPH x10^3 (test code 0.97 10*3/uL 1.32-3.29 L = 731-0) MONO x10^3 (test code 0.34 10*3/uL 0.33-0.92 = 742-7) EOS x10^3 (test code = 0.11 10*3/uL 0.03-0.39 711-2) BASO x10^3 (test code 0.04 10*3/uL 0.01-0.07 = 704-7) Lab Interpretation Abnormal (test code = 51114-8) [facility] GLUCOSE (AUTOMATED)2022-02-14 08:19:03 Test Item Value Reference Range Interpretation Comments POCT GLU (test code = 3200688554) 180 mg/dL 70-110 H Lab Interpretation (test code = Abnormal 27055-4) [facility] GLUCOSE (AUTOMATED)2022-02-14 04:28:25 Test Item Value Reference Range Interpretation Comments POCT GLU (test code = 3047715598) 199 mg/dL 70-110 H Lab Interpretation (test code = Abnormal 70084-7) [facility] GLUCOSE (AUTOMATED)2022-02-14 00:57:11 Test Item Value Reference Range Interpretation Comments POCT GLU (test code = 5081455132) 203 mg/dL 70-110 H Lab Interpretation (test code = Abnormal 10324-5) [facility] GLUCOSE (AUTOMATED)2022-02-13 22:30:21 Test Item Value Reference Range Interpretation Comments POCT GLU (test code = 2502093591) 202 mg/dL 70-110 H Lab Interpretation (test code = Abnormal 02761-6) [facility] GLUCOSE (AUTOMATED)2022-02-13 17:30:07 Test Item Value Reference Range Interpretation Comments POCT GLU (test code = 9784961275) 180 mg/dL 70-110 H Lab Interpretation (test code = Abnormal 08492-0) [facility] GLUCOSE (AUTOMATED)2022-02-13 15:53:46 Test Item Value Reference Range Interpretation Comments POCT GLU (test code = 5068631545) 170 mg/dL 70-110 H Lab Interpretation (test code = Abnormal 41507-4) [facility] Arterial Blood Gas.2022-02-13 14:26:25 Test Item Value Reference Range Interpretation Comments PH (test code = 2) 7.35-7.45 PCO2 (test code = See_Comment [Automate d message] 1955839206) The system [employer] generated this result transmitted ref erence range: 35 - 45 mmHg. The reference r josselyn was not used to interpret this result as normal/abnor mal. PO2 (test code = See_Comment L [Automated message] 8653987117) The system [employer] generated this result transmitted ref erence range: 80 - 100 mmHg. The reference r josselyn was not used to interpret this result as normal/abnor mal. HCO3 (test code = See_Comment H [Automate d message] 9913712233) The system [employer] generated this result transmitted ref erence range: 22 - 26 mEq/L. The reference r josselyn was not used to interpret this result as normal/abnor mal. BE (test code = See_Comment [Automated message] 7647459817) The system [employer] generated this result transmitted ref erence range: -3.0 - 3 .0 mEq/L. The refe rence range was not u sed to interpret this result as normal/abnor mal. Lab Interpretation (test Abnormal code = 44268-1) [facility] GLUCOSE (AUTOMATED)2022-02-13 14:09:26 Test Item Value Reference Range Interpretation Comments POCT GLU (test code = 0622802155) 145 mg/dL 70-110 H Lab Interpretation (test code = Abnormal 68404-4) [facility] GLUCOSE (AUTOMATED)2022-02-13 12:46:36 Test Item Value Reference Range Interpretation Comments POCT GLU (test code = 1574621114) 133 mg/dL 70-110 H Lab Interpretation (test code = Abnormal 54871-2) [facility] GLUCOSE (AUTOMATED)2022-02-13 11:45:25 Test Item Value Reference Range Interpretation Comments POCT GLU (test code = 9796689910) 127 mg/dL 70-110 H Lab Interpretation (test code = Abnormal 61610-2) [facility] METABOLIC PANEL (NA, K, CL, CO2, GLUCOSE, BUN, CREATININE, CA)2022-02-13 11:17:34 Test Item Value Reference Range Interpretation Comments NA (test code = 140 mmol/L 135-145 2603929046) K (test code = 3.8 mmol/L 3.5-5 9874627626) CL (test code = 103 mmol/L 98-108 3406206777) CO2 TOTAL (test code = 35 mmol/L 23-31 H 1599456849) AGAP (test code = 2-16 5076643468) BUN (test code = 14 mg/dL 7-23 0219943167) GLUCOSE (test code = 107 mg/dL 70-110 4550104715) CREATININE (test code = 0.94 mg/dL 0.5-1.04 2880093372) CALCIUM (test code = 8.2 mg/dL 8.6-10.6 L 9494789802) eGFR (test code = mL/min/1.73m2 2420670678) JENNIFFER (test code = JENNIFFER) Association of [...] tests). Lab Interpretation Abnormal (test code = 18468-6) [facility]34 Test Item Value Reference Range Interpretation Comments MAGNESIUM (test code = 5908884454) 2.1 mg/dL 1.7-2.4 Lab Interpretation (test code = Normal 34174-3) [facility] WITH [id number] 10:41:15 Test Item Value Reference Range Interpretation Comments WBC (test code = See_Comment [Automated 1090-2) message] The sy stem which generated this [...] (test code = 50.6 fL 39-49.9 H 61598-7) RDW-CV (test code = 15.6 % 12-15.5 H 788-0) PLT (test code = See_Comment [Automated 777-3) message] The sy stem which generated this result transmitted reference range : 166 - 358 10*3/ ?L. The reference r josselyn was not used to interpret this result as normal/abnormal . MPV (test code = 9.5 fL 9.5-12.9 65206-0) NRBC/100 WBC (test See_Comment [Automat ed code = 3985894336) message] The system which generated this result transmitted reference range : 0.0 - 10.0 /100 WBCs. The refer ence range was not u sed to interpret th is result as normal/abnormal . NRBC x10^3 (test code See_Comment [Auto mated = 2550411825) message] The s ystem which generated this result transmitted reference range : 10*3/?L. The reference range was not used to interpret this result as normal/abnormal . GRAN MAT (NEUT) % 74.0 % (test code = 770-8) IMM GRAN % (test code 0.50 % = 3874204698) LYMPH % (test code = 15.7 % 736-9) MONO % (test code = 7.4 % 5905-5) EOS % (test code = 1.7 % 713-8) BASO % (test code = 0.7 % 706-2) GRAN MAT x10^3(ANC) 4.37 10*3/uL 1.88-7.09 (test code = 4882937984) IMM GRAN x10^3 (test 0.03 10*3/uL 0-0.06 code = 3385578924) LYMPH x10^3 (test code 0.93 10*3/uL 1.32-3.29 L = 731-0) MONO x10^3 (test code 0.44 10*3/uL 0.33-0.92 = 742-7) EOS x10^3 (test code = 0.10 10*3/uL 0.03-0.39 711-2) BASO x10^3 (test code 0.04 10*3/uL 0.01-0.07 = 704-7) Lab Interpretation Abnormal (test code = 28102-3) [facility] GLUCOSE (AUTOMATED)2022-02-13 09:46:08 Test Item Value Reference Range Interpretation Comments POCT GLU (test code = 7902461253) 118 mg/dL 70-110 H Lab Interpretation (test code = Abnormal 48403-0) [facility] GLUCOSE (AUTOMATED)2022-02-13 08:49:55 Test Item Value Reference Range Interpretation Comments POCT GLU (test code = 1541515180) 122 mg/dL 70-110 H Lab Interpretation (test code = Abnormal 81140-4) [facility] GLUCOSE (AUTOMATED)2022-02-13 08:00:27 Test Item Value Reference Range Interpretation Comments POCT GLU (test code = 4932557399) 140 mg/dL 70-110 H Lab Interpretation (test code = Abnormal 25762-6) [facility] GLUCOSE (AUTOMATED)2022-02-13 07:07:01 Test Item Value Reference Range Interpretation Comments POCT GLU (test code = 9916487668) 155 mg/dL 70-110 H Lab Interpretation (test code = Abnormal 48284-4) [facility] GLUCOSE (AUTOMATED)2022-02-13 05:57:42 Test Item Value Reference Range Interpretation Comments POCT GLU (test code = 5101999184) 186 mg/dL 70-110 H Lab Interpretation (test code = Abnormal 97469-0) [facility] GLUCOSE (AUTOMATED)2022-02-13 03:40:10 Test Item Value Reference Range Interpretation Comments POCT GLU (test code = 7349998552) 245 mg/dL 70-110 H Lab Interpretation (test code = Abnormal 76211-7) [facility] GLUCOSE (AUTOMATED)2022-02-13 03:35:28 Test Item Value Reference Range Interpretation Comments POCT GLU (test code = 8449279580) 239 mg/dL 70-110 H Lab Interpretation (test code = Abnormal 44803-6) [facility] GLUCOSE (AUTOMATED)2022-02-13 01:48:01 Test Item Value Reference Range Interpretation Comments POCT GLU (test code = 5037902030) 184 mg/dL 70-110 H Lab Interpretation (test code = Abnormal 80272-4) [facility] GLUCOSE (AUTOMATED)2022-02-13 00:35:17 Test Item Value Reference Range Interpretation Comments POCT GLU (test code = 6694523197) 166 mg/dL 70-110 H Lab Interpretation (test code = Abnormal 01141-5) [facility] GLUCOSE (AUTOMATED)2022-02-12 23:26:35 Test Item Value Reference Range Interpretation Comments POCT GLU (test code = 7953803971) 149 mg/dL 70-110 H Lab Interpretation (test code = Abnormal 03577-0) [facility] GLUCOSE (AUTOMATED)2022-02-12 22:21:08 Test Item Value Reference Range Interpretation Comments POCT GLU (test code = 4331006024) 133 mg/dL 70-110 H Lab Interpretation (test code = Abnormal 58159-6) [facility] GLUCOSE (AUTOMATED)2022-02-12 21:06:47 Test Item Value Reference Range Interpretation Comments POCT GLU (test code = 0872085471) 130 mg/dL 70-110 H Lab Interpretation (test code = Abnormal 49319-0) [facility] GLUCOSE (AUTOMATED)2022-02-12 20:04:32 Test Item Value Reference Range Interpretation Comments POCT GLU (test code = 1361010327) 122 mg/dL 70-110 H Lab Interpretation (test code = Abnormal 38386-8) [facility] GLUCOSE (AUTOMATED)2022-02-12 19:08:55 Test Item Value Reference Range Interpretation Comments POCT GLU (test code = 2343077858) 133 mg/dL 70-110 H Lab Interpretation (test code = Abnormal 82929-0) [facility] GLUCOSE (AUTOMATED)2022-02-12 18:20:07 Test Item Value Reference Range Interpretation Comments POCT GLU (test code = 2644023820) 136 mg/dL 70-110 H Lab Interpretation (test code = Abnormal 36449-9) [facility] GLUCOSE (AUTOMATED)2022-02-12 17:19:20 Test Item Value Reference Range Interpretation Comments POCT GLU (test code = 8198865693) 155 mg/dL 70-110 H Lab Interpretation (test code = Abnormal 03933-3) [facility] GLUCOSE (AUTOMATED)2022-02-12 16:21:39 Test Item Value Reference Range Interpretation Comments POCT GLU (test code = 9174423744) 143 mg/dL 70-110 H Lab Interpretation (test code = Abnormal 39213-8) [facility]ah[facility]xy[facility][id number] 16:14:56 Test Item Value Reference Range Interpretation Comments BOH (test code = 0.2 mmol/L 4333536585) JENNIFFER (test code = Normal Ranges: ? ? JENNIFFER) Nonfasting ? Less than 0.1 mmol/L ? ? Overnight Fast ? ? ? Less than 0.4 mmol/L ? ? Fasting (1-2 weeks) ?6-8 mmol/L Test developed and characteristics determined by [facility] Laboratory Services. [facility] GLUCOSE (AUTOMATED)2022-02-12 15:53:18 Test Item Value Reference Range Interpretation Comments POCT GLU (test code = 9527754455) 70-110 HH Lab Interpretation (test code = Abnormal 90940-7) [facility] GLUCOSE (AUTOMATED)2022-02-12 14:17:34 Test Item Value Reference Range Interpretation Comments POCT GLU (test code = 5174068258) 232 mg/dL 70-110 H Lab Interpretation (test code = Abnormal 62227-9) [facility] GLUCOSE (AUTOMATED)2022-02-12 13:17:46 Test Item Value Reference Range Interpretation Comments POCT GLU (test code = 7301599846) 295 mg/dL 70-110 H Lab Interpretation (test code = Abnormal 79098-1) [facility] (NA, K, CL, CO2, GLUCOSE, BUN, CREATININE, CA)2022-02-12 12:56:38 Test Item Value Reference Range Interpretation Comments NA (test code = 138 mmol/L 135-145 0934867434) K (test code = 4.0 mmol/L 3.5-5 6107610430) CL (test code = 98 mmol/L 98-108 0201749902) CO2 TOTAL (test code = 31 mmol/L 23-31 9276787897) AGAP (test code = 2-16 7163895319) BUN (test code = 20 mg/dL 7-23 6375367600) GLUCOSE (test code = 279 mg/dL 70-110 H 6436060589) CREATININE (test code = 1.08 mg/dL 0.5-1.04 H 4749550609) CALCIUM (test code = 8.8 mg/dL 8.6-10.6 1750956001) eGFR (test code = mL/min/1.73m2 5504664600) JENNIFFER (test code = JENNIFFER) Association of [...] tests). Lab Interpretation Abnormal (test code = 80206-7) [facility] GLUCOSE (AUTOMATED)2022-02-12 12:44:19 Test Item Value Reference Range Interpretation Comments POCT GLU (test code = 8281412372) 299 mg/dL 70-110 H Lab Interpretation (test code = Abnormal 97726-8) [facility] GLUCOSE (AUTOMATED)2022-02-12 12:19:29 Test Item Value Reference Range Interpretation Comments POCT GLU (test code = 4677571632) 283 mg/dL 70-110 H Lab Interpretation (test code = Abnormal 96019-3) [facility] GLUCOSE (AUTOMATED)2022-02-12 11:22:10 Test Item Value Reference Range Interpretation Comments POCT GLU (test code = 0007687096) 378 mg/dL 70-110 H Lab Interpretation (test code = Abnormal 46754-5) [facility] GLUCOSE (AUTOMATED)2022-02-12 10:18:29 Test Item Value Reference Range Interpretation Comments POCT GLU (test code = 2793727673) 376 mg/dL 70-110 H Lab Interpretation (test code = Abnormal 70120-5) [facility] CenterOsmolality [id number] 09:27:10 Test Item Value Reference Range Interpretation Comments OSMOLALITY (test code = See_Comment HH [Au tomated message] 2692-2) The system [employer] generated this result transmitted ref erence range: 278 - 30 5 mOsm/kg. The reference range was not used to int erpret this result as normal/abnormal . Lab Interpretation (test Abnormal code = 28034-1) [facility] METABOLIC PANEL (NA, K, CL, CO2, GLUCOSE, BUN, CREATININE, CA)2022-02-12 09:22:44 Test Item Value Reference Range Interpretation Comments NA (test code = 135 mmol/L 135-145 7971228093) K (test code = 4.7 mmol/L 3.5-5 9319882789) CL (test code = 93 mmol/L 98-108 L 6827302259) CO2 TOTAL (test code = 33 mmol/L 23-31 H 2952558216) AGAP (test code = 2-16 1550760300) BUN (test code = 22 mg/dL 7-23 2229893704) GLUCOSE (test code = 474 mg/dL 70-110 HH 4025275249) CREATININE (test code = 1.17 mg/dL 0.5-1.04 H 0816976201) CALCIUM (test code = 8.9 mg/dL 8.6-10.6 8097803283) eGFR (test code = mL/min/1.73m2 3273237754) JENNIFFER (test code = JENNIFFER) Association of [...] tests). Lab Interpretation Abnormal (test code = 52650-9) [facility] GLUCOSE (AUTOMATED)2022-02-12 09:19:06 Test Item Value Reference Range Interpretation Comments POCT GLU (test code = 3655516488) 478 mg/dL 70-110 HH Lab Interpretation (test code = Abnormal 17807-0) [facility] 09:16:19 Test Item Value Reference Range Interpretation Comments PHOSPHORUS (test code = 8528253932) 5.9 mg/dL 2.5-5 H Lab Interpretation (test code = Abnormal 09559-5) [facility] 09:16:19 Test Item Value Reference Range Interpretation Comments MAGNESIUM (test code = 3965560681) 2.1 mg/dL 1.7-2.4 Lab Interpretation (test code = Normal 75386-3) [facility] CenterGlycosylated Hemoglobin (A1C)2022-02-12 09:10:46 Test Item Value Reference Range Interpretation Comments HGB A1C (test code = 9.7 % 4-5.7 H 4548-4) JENNIFFER (test code = JENNIFFER) Reference RangesNormal: <5.7%Prediabetes: 5.7 - 6.4%Diabetes: > 6.5% Lab Interpretation (test Abnormal code = 18463-3) [facility] Center[facility] WITH [id number] 08:28:29 Test Item Value Reference Range Interpretation [...] RDW-SD (test code = 49.8 fL 39-49.9 81291-2) RDW-CV (test code = 15.7 % 12-15.5 H 788-0) PLT (test code = See_Comment [Automated 777-3) message] The system which generated this result transmit alden reference range : 166 - 358 10*3/ ?L. The reference range was not u sed to interpret th is result as normal/abnormal . MPV (test code = 9.7 fL 9.5-12.9 57517-9) NRBC/100 WBC (test See_Comment [Automat ed code = 6043211372) message] The system which generated this result transmit alden reference range : 0.0 - 10.0 /100 WBCs. The reference range was not used to interpret this result as normal/abnormal . NRBC x10^3 (test code See_Comment [Auto mated = 6494845999) message] The system which generated this result transmit alden reference range : 10*3/?L. The reference range was not used to interpret this result as normal/abnormal . GRAN MAT (NEUT) % 89.9 % (test code = 770-8) IMM GRAN % (test code 0.90 % = 8156731965) LYMPH % (test code = 3.4 % 736-9) MONO % (test code = 5.3 % 5905-5) EOS % (test code = 0.1 % 713-8) BASO % (test code = 0.4 % 706-2) GRAN MAT x10^3(ANC) 11.94 10*3/uL 1.88-7.09 H (test code = 5505933736) IMM GRAN x10^3 (test 0.12 10*3/uL 0-0.06 H code = 2814664827) LYMPH x10^3 (test code 0.45 10*3/uL 1.32-3.29 L = 731-0) MONO x10^3 (test code 0.70 10*3/uL 0.33-0.92 = 742-7) EOS x10^3 (test code = 0.03-0.39 L 711-2) BASO x10^3 (test code 0.05 10*3/uL 0.01-0.07 = 704-7) Lab Interpretation Abnormal (test code = 71404-9) [facility] GLUCOSE (AUTOMATED)2022-02-12 04:57:17 Test Item Value Reference Range Interpretation Comments POCT GLU (test code = 9056249445) 592 mg/dL 70-110 HH Lab Interpretation (test code = Abnormal 34894-2) [facility] GLUCOSE (AUTOMATED)2022-02-12 04:57:17 Test Item Value Reference Range Interpretation Comments POCT GLU (test code = 4954815810) 559 mg/dL 70-110 HH Lab Interpretation (test code = Abnormal 53269-1) [facility] Center[facility] STIM[facility]ATING [id number] 02:15:56 Test Item Value Reference Range Interpretation Comments TSH (test code = See_Comment [Automated message] 1022816227) The system [employer] generated this result transmitted ref erence range: 0.45 - 4 .70 mIU/L. The refe rence range was not u sed to interpret this result as normal/abnor mal. Lab Interpretation (test Normal code = 44926-8) [facility] [id number] 02:02:37 Test Item Value Reference Range Interpretation Comments FREE T4 (test code = See_Comment [Autom ated message] 2500381531) The system [employer] generated this result transmitted ref erence range: 0.78 - 2 .20 ng/dL:. The ref erence range was not u sed to interpret this result as normal/abnor mal. Lab Interpretation (test Normal code = 27603-0) [facility] CenterTR[facility] [id number] 01:57:33 Test Item Value Reference Interpretation Comments Range TROPONIN I (test 0.001 ng/mL See_Comment [Automated code = 7161555235) message] The system which generated this result [...] biotin. Lab Interpretation Normal (test code = 40011-3) [facility]. METABOLIC PANEL (61305)2022-02-12 01:55:07 Test Item Value Reference Range Interpretation Comments NA (test code = 134 mmol/L 135-145 L 4948032482) K (test code = 4.4 mmol/L 3.5-5 8791399844) CL (test code = 95 mmol/L 98-108 L 4907523145) CO2 TOTAL (test code = 22 mmol/L 23-31 L 2571797604) AGAP (test code = 2-16 H 2866161672) BUN (test code = 22 mg/dL 7-23 7807970769) GLUCOSE (test code = 646 mg/dL 70-110 HH 1680739468) CREATININE (test code = 1.19 mg/dL 0.5-1.04 H 6976717909) TOTAL BILI (test code = 1.1 mg/dL 0.1-1.9 2832864599) CALCIUM (test code = 9.1 mg/dL 8.6-10.6 3440235895) T PROTEIN (test code = 7.0 g/dL 6.3-8.2 0555032983) ALBUMIN (test code = 4.1 g/dL 3.5-5 0203221568) ALK PHOS (test code = 245 U/L 34-122 H 0449594812) ALTv (test code = 78 U/L 5-35 H 1742-6) AST(SGOT) (test code = 76 U/L 13-40 H 3701501732) eGFR (test code = mL/min/1.73m2 1456632004) JENNIFFER (test code = JENNIFFER) Association of [...] tests). Lab Interpretation Abnormal (test code = 90715-4) [facility] [id number] 01:54:57 Test Item Value Reference Range Interpretation Comments NT-proBNP (test code 491 pg/mL See_Comment H [Autom ated = 8127204596) message] The system which generated this result transmitted reference range : <=125. The reference range was not used to interpret this result as normal/abnormal . JENNIFFER (test code = JENNIFFER) Biotin has been reported to cause a negative bias, interpret results relative to patient's use of biotin. Lab Interpretation Abnormal (test code = 54810-0) [facility] CenterETHANOL2022-[facility] 01:47:18 ALCOHOL<10mg/dL02/11/2022 8:47 PM [facility]<10 Ojoraqez41-440 Toxic>100 Depression of LAND CHECKER>400 Fatalities ReportedPerm[facility] Medical CenterAMMONIA, [id number] 01:46:13 Test Item Value Reference Range Interpretation Comments AMMONIA (test code = 6168486527) 28 umol/L 9-33 Lab Interpretation (test code = Normal 77293-9) [facility] CenterACTIVATED PARTIAL THRMPLAS [id number] 01:39:11 Test Item Value Reference Range Interpretation Comments APTT Patient (test See_Comment [Automat ed code = 3173-2) message] The system which generated this result transmitted reference range : 23 - 38 Seconds . The reference range was not used to interpr et this result as normal/abnormal . JENNIFFER (test code = JENNIFFER) The [facility] patient population mean normal value for aPTT is 30 seconds. Lab Interpretation Normal (test code = 99415-9) [facility] CenterCBC WITH [id number] 01:37:15 Test Item Value Reference Range Interpretation [...] (test code = 50.9 fL 39-49.9 H 97275-8) RDW-CV (test code = 15.8 % 12-15.5 H 788-0) PLT (test code = See_Comment [Automated 777-3) message] The sy stem which generated this result transmitted reference range : 166 - 358 10*3/ ?L. The reference r josselyn was not used to interpret this result as normal/abnormal . MPV (test code = 9.9 fL 9.5-12.9 33189-6) NRBC/100 WBC (test See_Comment [Automat ed code = 6003355418) message] The system which generated this result transmitted reference range : 0.0 - 10.0 /100 WBCs. The refer ence range was not u sed to interpret th is result as normal/abnormal . NRBC x10^3 (test code See_Comment [Auto mated = 3765311562) message] The s ystem which generated this result transmitted reference range : 10*3/?L. The reference range was not used to interpret this result as normal/abnormal . GRAN MAT (NEUT) % 78.5 % (test code = 770-8) IMM GRAN % (test code 1.20 % = 1168008880) LYMPH % (test code = 12.2 % 736-9) MONO % (test code = 6.4 % 5905-5) EOS % (test code = 1.0 % 713-8) BASO % (test code = 0.7 % 706-2) GRAN MAT x10^3(ANC) 8.80 10*3/uL 1.88-7.09 H (test code = 0812715211) IMM GRAN x10^3 (test 0.14 10*3/uL 0-0.06 H code = 8872583061) LYMPH x10^3 (test code 1.37 10*3/uL 1.32-3.29 = 731-0) MONO x10^3 (test code 0.72 10*3/uL 0.33-0.92 = 742-7) EOS x10^3 (test code = 0.11 10*3/uL 0.03-0.39 711-2) BASO x10^3 (test code 0.08 10*3/uL 0.01-0.07 H = 704-7) Lab Interpretation Abnormal (test code = 95010-3) [facility] CenterPROTHROMBIN TIME / [id number] 01:36:50 Test Item Value Reference Range Interpretation [...] tions. Lab Interpretation (test Normal code = 87269-2) [facility] GLUCOSE (AUTOMATED)2022-01-31 18:41:03 Test Item Value Reference Range Interpretation Comments POCT GLU (test code = 5036676042) 241 mg/dL 70-110 H Lab Interpretation (test code = Abnormal 03239-7) [facility] CenterSPUTUM [id number] 14:36:01 Test Item Value Reference Range Interpretation Comments SPUTUM CULTURE 1+ Respiratory iveth: (test code = 622-1) Commensal upper respiratory microorganisms only. Gram stain (test Few Epithelial cells code = 664-3) JENNIFFER (test code = Bacterial pathogens JENNIFFER) associated with lower respiratory infections were not identified, which include Pseudomonas aeruginosa and Staphylococcus aureus (MRSA or MSSA). [facility] CenterN-TERMINAL [id number] 14:27:39 Test Item Value Reference Range Interpretation Comments NT-proBNP (test code 2930 pg/mL See_Comment H [Autom ated = 6995470547) message] The system which generated this result transmitted reference range : <=125. The reference range was not used to interpret this result as normal/abnormal . JENNIFFER (test code = JENNIFFER) Biotin has been reported to cause a negative bias, interpret results relative to patient's use of biotin. Lab Interpretation Abnormal (test code = 14351-9) [facility] GLUCOSE (AUTOMATED)2022-01-31 13:06:37 Test Item Value Reference Range Interpretation Comments POCT GLU (test code = 5045516012) 144 mg/dL 70-110 H Lab Interpretation (test code = Abnormal 12508-7) [facility] CenterBASI METABOLIC PANEL (NA, K, CL, CO2, GLUCOSE, BUN, CREATININE, CA)2022-01-31 11:52:51 Test Item Value Reference Range Interpretation Comments NA (test code = 139 mmol/L 135-145 1315893918) K (test code = 4.2 mmol/L 3.5-5.0 2610078252) CL (test code = 92 mmol/L 98-108 L 2481209115) CO2 TOTAL (test code = 39 mmol/L 23-31 H 2066582246) AGAP (test code = 2-16 6695252976) BUN (test code = 32 mg/dL 7-23 H 0657874423) GLUCOSE (test code = 183 mg/dL 70-110 H 0716908413) CREATININE (test code = 0.89 mg/dL 0.50-1.04 0811785637) CALCIUM (test code = 8.7 mg/dL 8.6-10.6 1538146300) eGFR (test code = mL/min/1.73m2 4747702305) JENNIFFER (test code = JENNIFFER) Association of [...] tests). Lab Interpretation Abnormal (test code = 83298-5) [facility]09 Test Item Value Reference Range Interpretation Comments MAGNESIUM (test code = 1018747818) 2.4 mg/dL 1.7-2.4 Lab Interpretation (test code = Normal 36813-1) [facility] CenterPHOSPHORUS2022-07-09 11:44:49 Test Item Value Reference Range Interpretation Comments PHOSPHORUS (test code = 2435440118) 3.3 mg/dL 2.5-5.0 Lab Interpretation (test code = Normal 60646-4) [facility] GLUCOSE (AUTOMATED)2022-01-30 21:23:07 Test Item Value Reference Range Interpretation Comments POCT GLU (test code = 5332441228) 357 mg/dL 70-110 H Lab Interpretation (test code = Abnormal 49596-6) [facility] GLUCOSE (AUTOMATED)2022-01-30 17:39:07 Test Item Value Reference Range Interpretation Comments POCT GLU (test code = 5120379031) 183 mg/dL 70-110 H Lab Interpretation (test code = Abnormal 90133-5) [facility] GLUCOSE (AUTOMATED)2022-01-30 17:39:07 Test Item Value Reference Range Interpretation Comments POCT GLU (test code = 5752733333) 275 mg/dL 70-110 H Lab Interpretation (test code = Abnormal 03682-5) [facility] GLUCOSE (AUTOMATED)2022-01-30 13:42:50 Test Item Value Reference Range Interpretation Comments POCT GLU (test code = 0289817085) 187 mg/dL 70-110 H Lab Interpretation (test code = Abnormal 72406-0) [facility] CenterN-TERMINAL [id number] 10:44:07 Test Item Value Reference Range Interpretation Comments NT-proBNP (test code 3180 pg/mL See_Comment H [Autom ated = 2835740553) message] The system which generated this result transmitted reference range : <=125. The reference range was not used to interpret this result as normal/abnormal . JENNIFFER (test code = JENNIFFER) Biotin has been reported to cause a negative bias, interpret results relative to patient's use of biotin. Lab Interpretation Abnormal (test code = 21620-0) [facility]. METABOLIC PANEL (24869)2022-01-30 10:36:27 Test Item Value Reference Range Interpretation Comments NA (test code = 139 mmol/L 135-145 6548440778) K (test code = 3.7 mmol/L 3.5-5.0 1203566966) CL (test code = 92 mmol/L 98-108 L 3755528100) CO2 TOTAL (test code = 37 mmol/L 23-31 H 6044059210) AGAP (test code = 2-16 0686888835) BUN (test code = 22 mg/dL 7-23 8579438399) GLUCOSE (test code = 192 mg/dL 70-110 H 1677115651) CREATININE (test code = 1.04 mg/dL 0.50-1.04 2211374435) TOTAL BILI (test code = 0.7 mg/dL 0.1-1.7 4144549734) CALCIUM (test code = 8.3 mg/dL 8.6-10.6 L 9051077677) T PROTEIN (test code = 6.8 g/dL 6.3-8.2 5922972555) ALBUMIN (test code = 3.7 g/dL 3.5-5.0 5569794256) ALK PHOS (test code = 124 U/L 34-122 H 3408100738) ALTv (test code = 28 U/L 5-35 1742-6) AST(SGOT) (test code = 24 U/L 13-40 7410163397) eGFR (test code = mL/min/1.73m2 9343719868) JENNIFFER (test code = JENNIFFER) Association of [...] tests). Lab Interpretation Abnormal (test code = 28008-5) [facility] WITH [id number] 09:41:38 Test Item Value Reference Range Interpretation Comments WBC (test code = See_Comment [Automated 1690-2) message] The sy stem which generated this result transmitted reference range : 4.30 - 11.10 10*3/?L. The reference range was not used to interpret this result as normal/abnormal . RBC (test code = See_Comment L [Automated 249-8) message] The sy stem which generated this [...] RDW-SD (test code = 47.8 fL 39.0-49.9 23866-2) RDW-CV (test code = 15.0 % 12.0-15.5 788-0) PLT (test code = See_Comment [Automated 777-3) message] The sy stem which generated this result transmitted reference range : 166 - 358 10*3/ ?L. The reference r josselyn was not used to interpret this result as normal/abnormal . MPV (test code = 9.1 fL 9.5-12.9 L 88947-3) NRBC/100 WBC (test See_Comment [Automat ed code = 7640150519) message] The system which generated this result transmitted reference range : 0.0 - 10.0 /100 WBCs. The refer ence range was not u sed to interpret th is result as normal/abnormal . NRBC x10^3 (test code <0.01 See_Comment [Auto mated = 9832087990) message] The s ystem which generated this result transmitted reference range : 10*3/?L. The reference range was not used to interpret this result as normal/abnormal . GRAN MAT (NEUT) % 85.7 % (test code = 770-8) IMM GRAN % (test code 0.60 % = 1120537814) LYMPH % (test code = 7.1 % 736-9) MONO % (test code = 6.1 % 5905-5) EOS % (test code = 0.1 % 713-8) BASO % (test code = 0.4 % 706-2) GRAN MAT x10^3(ANC) 7.16 10*3/uL 1.88-7.09 H (test code = 1121133071) IMM GRAN x10^3 (test 0.05 10*3/uL 0.00-0.06 code = 1528672228) LYMPH x10^3 (test code 0.59 10*3/uL 1.32-3.29 L = 731-0) MONO x10^3 (test code 0.51 10*3/uL 0.33-0.92 = 742-7) EOS x10^3 (test code = <0.03 0.03-0.39 L 711-2) BASO x10^3 (test code 0.03 10*3/uL 0.01-0.07 = 704-7) Lab Interpretation Abnormal (test code = 96576-6) [facility] 03:06:20 Test Item Value Reference Range Interpretation Comments POCT GLU (test code = 9328800753) 336 mg/dL 70-110 H Lab Interpretation (test code = Abnormal 02485-5) [facility] CenterPHOSPHORUS2022-07-07 21:35:38 Test Item Value Reference Range Interpretation Comments PHOSPHORUS (test code = 1660999309) 4.3 mg/dL 2.5-5.0 Lab Interpretation (test code = Normal 59080-8) [facility] GLUCOSE (AUTOMATED)2022-01-29 21:21:35 Test Item Value Reference Range Interpretation Comments POCT GLU (test code = 6773679321) 354 mg/dL 70-110 H Lab Interpretation (test code = Abnormal 11922-0) [facility] GLUCOSE (AUTOMATED)2022-01-29 16:10:10 Test Item Value Reference Range Interpretation Comments POCT GLU (test code = 8431873560) 240 mg/dL 70-110 H Lab Interpretation (test code = Abnormal 85188-3) [facility] GLUCOSE (AUTOMATED)2022-01-29 15:16:07 Test Item Value Reference Range Interpretation Comments POCT GLU (test code = 4710365333) 219 mg/dL 70-110 H Lab Interpretation (test code = Abnormal 12047-5) [facility] GLUCOSE (AUTOMATED)2022-01-29 13:06:22 Test Item Value Reference Range Interpretation Comments POCT GLU (test code = 0205279823) 176 mg/dL 70-110 H Lab Interpretation (test code = Abnormal 90775-6) [facility]. METABOLIC PANEL (94815)2022-01-29 10:31:34 Test Item Value Reference Range Interpretation Comments NA (test code = 141 mmol/L 135-145 2505336268) K (test code = 4.2 mmol/L 3.5-5.0 7830391880) CL (test code = 96 mmol/L 98-108 L 9621112312) CO2 TOTAL (test code = 37 mmol/L 23-31 H 8023125828) AGAP (test code = 2-16 0921799622) BUN (test code = 20 mg/dL 7-23 9304556550) GLUCOSE (test code = 179 mg/dL 70-110 H 8014944649) CREATININE (test code = 0.90 mg/dL 0.50-1.04 1065890900) TOTAL BILI (test code = 0.7 mg/dL 0.1-1.4 9829244701) CALCIUM (test code = 8.3 mg/dL 8.6-10.6 L 7716250836) T PROTEIN (test code = 7.3 g/dL 6.3-8.2 3873605073) ALBUMIN (test code = 3.9 g/dL 3.5-5.0 2183520647) ALK PHOS (test code = 151 U/L 34-122 H 4290711223) ALTv (test code = 44 U/L 5-35 H 1742-6) AST(SGOT) (test code = 54 U/L 13-40 H 9562187863) eGFR (test code = mL/min/1.73m2 8029981666) JENNIFFER (test code = JENNIFFER) Association of [...] tests). Lab Interpretation Abnormal (test code = 16089-4) [facility]AL [id number] 10:06:38 Test Item Value Reference Range Interpretation Comments NT-proBNP (test code 3080 pg/mL See_Comment H [Autom ated = 5124006976) message] The system which generated this result transmitted reference range : <=125. The reference range was not used to interpret this result as normal/abnormal . JENNIFFER (test code = JENNIFFER) Biotin has been reported to cause a negative bias, interpret results relative to patient's use of biotin. Lab Interpretation Abnormal (test code = 60073-8) [facility] CenterMAGNESIUM20[facility] 09:58:35 Test Item Value Reference Range Interpretation Comments MAGNESIUM (test code = 5851921966) 1.8 mg/dL 1.7-2.4 Lab Interpretation (test code = Normal 26144-8) [facility] WITH [id number] 09:47:53 Test Item Value Reference Range Interpretation [...] (test code = 50.9 fL 39.0-49.9 H 88830-7) RDW-CV (test code = 15.5 % 12.0-15.5 788-0) PLT (test code = See_Comment [Automated 777-3) message] The system which generated this result transmit alden reference range : 166 - 358 10*3/ ?L. The reference range was not u sed to interpret th is result as normal/abnormal . MPV (test code = 9.9 fL 9.5-12.9 16290-6) NRBC/100 WBC (test See_Comment [Automat ed code = 3702468848) message] The system which generated this result transmit alden reference range : 0.0 - 10.0 /100 WBCs. The reference range was not used to interpret this result as normal/abnormal . NRBC x10^3 (test code <0.01 See_Comment [Auto mated = 9339125606) message] The system which generated this result transmit alden reference range : 10*3/?L. The reference range was not used to interpret this result as normal/abnormal . GRAN MAT (NEUT) % 87.2 % (test code = 770-8) IMM GRAN % (test code 0.50 % = 0522607839) LYMPH % (test code = 5.6 % 736-9) MONO % (test code = 5.9 % 5905-5) EOS % (test code = 0.4 % 713-8) BASO % (test code = 0.4 % 706-2) GRAN MAT x10^3(ANC) 10.37 10*3/uL 1.88-7.09 H (test code = 5687906415) IMM GRAN x10^3 (test 0.06 10*3/uL 0.00-0.06 code = 4027883804) LYMPH x10^3 (test code 0.66 10*3/uL 1.32-3.29 L = 731-0) MONO x10^3 (test code 0.70 10*3/uL 0.33-0.92 = 742-7) EOS x10^3 (test code = 0.05 10*3/uL 0.03-0.39 711-2) BASO x10^3 (test code 0.05 10*3/uL 0.01-0.07 = 704-7) Lab Interpretation Abnormal (test code = 66455-7) [facility] 05:48:29 Test Item Value Reference Range Interpretation Comments POCT GLU (test code = 6354076595) 297 mg/dL 70-110 H Lab Interpretation (test code = Abnormal 47553-2) [facility] GLUCOSE (AUTOMATED)2022-01-29 05:48:29 Test Item Value Reference Range Interpretation Comments POCT GLU (test code = 8542232476) 282 mg/dL 70-110 H Lab Interpretation (test code = Abnormal 41907-8) [facility] GLUCOSE (AUTOMATED)2022-01-28 23:35:33 Test Item Value Reference Range Interpretation Comments POCT GLU (test code = 9146254888) 302 mg/dL 70-110 H Lab Interpretation (test code = Abnormal 97259-1) [facility] CenterVITAMIN B12, [id number] 23:17:54 Test Item Value Reference Range Interpretation Comments VIT B12 (test code = 265 pg/mL 240-930 9655742969) JENNIFFER (test code = JENNIFFER) Biotin has been reported to cause a positive bias, interpret results relative to patient's use of biotin. Lab Interpretation (test Normal code = 72235-5) [facility] CenterPROCALCITONIN2022-07-06 20:35:43 Test Item Value Reference Range Interpretation Comments Procalcitonin (test 0.13 ng/mL <0.07 H code = 5820612173) JENNIFFER (test code = JENNIFFER) INTERPRETATION OF [...] lung abscess/empyema. For further information please refer to:[email or web address] Lab Interpretation Abnormal (test code = 89656-6) [facility] CenterVITAMIN D, [id number] 20:34:43 Test Item Value Reference Range Interpretation Comments VIT D 25OH (test code = 23 ng/mL 25-80 L 68976-6) JENNIFFER (test code = JENNIFFER) Deficiency: <20 ng/mLInsufficiency: 20-24 ng/mLOptimal: 25-80 ng/mL Lab Interpretation (test Abnormal code = 77597-8) [facility] CenterTROPONIN [id number] 18:15:31 Test Item Value Reference Interpretation Comments Range TROPONIN I (test 0.003 ng/mL See_Comment [Automated code = 5826267844) message] The system which generated this result [...] biotin. Lab Interpretation Normal (test code = 10488-9) [facility] CenterURIC [id number] 18:04:12 Test Item Value Reference Range Interpretation Comments URIC ACID (test code = 5845031483) 9.3 mg/dL 2.9-6.0 H Lab Interpretation (test code = Abnormal 18997-5) [facility] CenterTransthoracic echo (TTE)2022-01-28 17:57:52 Test Item Value Reference Range Interpretation Comments Height (test code = in 5770366352) Weight (test code = lbs 8674954312) Systolic BP (test code = mmHg 8122324162) Diastolic BP (test code = mmHg 6231793123) Heart Rate (test code = bpm 0676889568) Ao root annulus (test 3.1 cm code = 8543018962) Ao root diam (test code = 3.10 cm 9138253748) Aortic root (test code = 3.1 cm 9063976853) LA size (test code = 4.9 cm 4667038158) LVOT diameter (test code 2.10 cm = 9667726520) E wave decelartion time 0.25 s (test code = 2252836534) MV Peak E Marva (test code 83.7 cm/s = 7516353571) MV Peak A Marva (test code 66.0 cm/s = 3744469445) E/A ratio (test code = ratio 4251232673) MV E/e' septal (test code 8.2 cm/s = 7823221413) Tapse (test code = 1.68 cm 5682024774) Aortic valve mean 77.4 cm/s velocity (test code = 2354980275) Ao peak marva (test code = 124.6 cm/s 8178402480) Ao VTI (test code = 20.7 cm 6291946365) Ao max PG (test code = 6.20 mm[Hg] 4965321648) AV peak gradient (test mmHg code = 3125960701) AV mean gradient (test mmHg code = 3963648725) LVOT stroke volume (test 62.00 cm3 code = 4537420805) LVOT peak marva (test code 104.3 cm/s = 5375700699) LVOT mn grad (test code = mmHg 0818572719) AV LVOT peak gradient mmHg (test code = 3422340780) LVOT peak VTI (test code 17.9 cm = 5616400865) AV area by cont VTI (test 3.0 cm2 code = 6330253237) AV area peak marva (test 2.9 cm2 code = 3494024310) LV V1 mean (test code = 63.60 cm/s 0760381129) AV valve area (test code 3.00 cm2 = 8665248174) LVIDD (test code = 5.20 cm 9950431344) IVS (test code = 0.79 cm 3352411265) Interventricular Septum 0.79 cm Diastolic Thickness by 2D (test code = 3325547) LVPWD (test code = 0.66 cm 6956286400) PW (test code = 0.66 cm 0.6-1.4 4535744807) EF(Teich) (test code = 48.60 % 1725323794) LVIDS (test code = 3.90 cm 3872164304) FS (test code = 25 % 6493652289) EF - 2D (test code = 48.60 % 91440845) Radiology Study observation (narrative) (test code = 00683-2) JENNIFFER (test code = JENNIFFER) ?Left?Ventricle: Normal systolic function with a visually estimated EF of 60 - 65%. ?Tricuspid?Valve: Insufficient regurgant jet to estimate RVSP. ?RA pressure is 10-15 mmHg. VitalsHeight Weight BSA (Calculated - sq m) BP Pulse 5' 1" (1.549 m) 230 lb (104.3 kg) 2.12 sq meters 118/66 96 [facility] [id number] 14:19:29 Test Item Value Reference Interpretation Comments Range TROPONIN I (test 0.003 ng/mL See_Comment [Automated code = 1928018993) message] The system which generated this result [...] biotin. Lab Interpretation Normal (test code = 40822-0) [facility] [id number] 14:16:29 Test Item Value Reference Range Interpretation Comments NT-proBNP (test code 1170 pg/mL See_Comment H [Autom ated = 7694011825) message] The system which generated this result transmitted reference range : <=125. The reference range was not used to interpret this result as normal/abnormal . JENNIFFER (test code = JENNIFFER) Biotin has been reported to cause a negative bias, interpret results relative to patient's use of biotin. Lab Interpretation Abnormal (test code = 34438-5) [facility] [id number] 14:14:29 Test Item Value Reference Range Interpretation Comments IRON (test code = 9789435085) 42 ug/dL 50-160 L TIBC (test code = 0491530426) 299 ug/dL 250-410 % FE SAT (test code = 5879796865) 14 % 20-50 L Lab Interpretation (test code = Abnormal 69074-9) [facility] GLUCOSE (AUTOMATED)2022-01-28 14:00:04 Test Item Value Reference Range Interpretation Comments POCT GLU (test code = 2798181561) 197 mg/dL 70-110 H Lab Interpretation (test code = Abnormal 19407-7) [facility] GLUCOSE (AUTOMATED)2022-01-28 13:01:52 Test Item Value Reference Range Interpretation Comments POCT GLU (test code = 8787846447) 211 mg/dL 70-110 H Lab Interpretation (test code = Abnormal 21862-8) [facility] CenterFERRITIN [id number] 13:00:31 Test Item Value Reference Range Interpretation Comments FERRITIN (test code = 86.8 ng/mL 11.0-264.0 2943589968) JENNIFFER (test code = JENNIFFER) Biotin has been reported to cause a negative bias, interpret results relative to patient's use of biotin. Lab Interpretation (test Normal code = 07949-7) [facility] CenterTHYROID STIMULATING [id number] 12:56:35 Test Item Value Reference Range Interpretation Comments TSH (test code = See_Comment [Automated message] 9443696209) The system [employer] generated this result transmitted ref erence range: 0.45 - 4 .70 mIU/L. The refe rence range was not u sed to interpret this result as normal/abnor mal. Lab Interpretation (test Normal code = 27508-0) [facility] CenterSEDIMENTATION [id number] 12:41:55 Test Item Value Reference Range Interpretation Comments ESR (test code = See_Comment H [Automated message] 3766613907) The system [employer] generated this result transmitted ref erence range: 0 - 20 m m/HR. The reference r josselyn was not used to interpret this result as normal/abnor mal. Lab Interpretation (test Abnormal code = 71935-6) [facility] CenterTROPONIN [id number] 12:38:13 Test Item Value Reference Interpretation Comments Range TROPONIN I (test 0.003 ng/mL See_Comment [Automated code = 1816814030) message] The system which generated this result [...] biotin. Lab Interpretation Normal (test code = 03105-9) [facility]N-[facility]AL [id number] 12:34:52 Test Item Value Reference Range Interpretation Comments NT-proBNP (test code 1150 pg/mL See_Comment H [Autom ated = 2347005911) message] The system which generated this result transmitted reference range : <=125. The reference range was not used to interpret this result as normal/abnormal . JENNIFFER (test code = JENNIFFER) Biotin has been reported to cause a negative bias, interpret results relative to patient's use of biotin. Lab Interpretation Abnormal (test code = 47217-3) [facility] CenterLIPID PANEL (91922)(TOTAL CHOLESTEROL, TRIGLYCERIDES, HDL)2022-01-28 12:26:13 Test Item Value Reference Range Interpretation Comments CHOL (test code = 122 mg/dL 120-200 6301102611) HDL (test code = 27 mg/dL >50 L 4515112873) HDLC RATIO (test code = See_Comment [Au tomated message] 9543984589) The system [employer] generated this result transmit alden reference range : <=4.5. The refe rence range was not u sed to interpret th is result as normal/abnormal . TRIG (test code = 249 mg/dL 30-170 H 2001115723) LDL CHOL (test code = 45 mg/dL See_Comment [Auto mated message] 71205-9) The system [employer] generated this result transmit alden reference range : <=160. The refe rence range was not u sed to interpret th is result as normal/abnormal . VLDL (test code = 50 mg/dL 5-60 0372416732) Lab Interpretation (test Abnormal code = 22645-9) [facility]13 Test Item Value Reference Range Interpretation Comments MAGNESIUM (test code = 9457054487) 1.9 mg/dL 1.7-2.4 Lab Interpretation (test code = Normal 62650-5) [facility] ([id number])2022-01-28 12:25:53 Test Item Value Reference Range Interpretation Comments NA (test code = 141 mmol/L 135-145 1100610430) K (test code = 4.9 mmol/L 3.5-5.0 4051930807) CL (test code = 101 mmol/L 98-108 2540947340) CO2 TOTAL (test code = 32 mmol/L 23-31 H 4738843762) AGAP (test code = 2-16 3419721239) BUN (test code = 20 mg/dL 7-23 5852761216) GLUCOSE (test code = 217 mg/dL 70-110 H 0876631805) CREATININE (test code = 1.05 mg/dL 0.50-1.04 H 2006516599) TOTAL BILI (test code = 0.7 mg/dL 0.1-1.3 5763740444) CALCIUM (test code = 8.5 mg/dL 8.6-10.6 L 7808564482) T PROTEIN (test code = 7.2 g/dL 6.3-8.2 2179370689) ALBUMIN (test code = 3.9 g/dL 3.5-5.0 5556085731) ALK PHOS (test code = 161 U/L 34-122 H 4701333877) ALTv (test code = 50 U/L 5-35 H 1742-6) AST(SGOT) (test code = 61 U/L 13-40 H 4801406484) eGFR (test code = mL/min/1.73m2 1220616744) JENNIFFER (test code = JENNIFFER) Association of [...] tests). Lab Interpretation Abnormal (test code = 38865-3) [facility] 12:25:53 Test Item Value Reference Range Interpretation Comments PHOSPHORUS (test code = 7793763229) 5.3 mg/dL 2.5-5.0 H Lab Interpretation (test code = Abnormal 90092-2) [facility] CenterURIC [id number] 12:25:33 Test Item Value Reference Range Interpretation Comments URIC ACID (test code = 1922914540) 9.5 mg/dL 2.9-6.0 H Lab Interpretation (test code = Abnormal 78405-7) [facility]CREATINE [id number] 12:25:13 Test Item Value Reference Range Interpretation Comments CK (test code = 8456735855) 27 U/L 33-194 L Lab Interpretation (test code = Abnormal 66796-4) [facility] CenterGLYCOSYLATED HEMOGLOBIN (A1C)2022-01-28 07:50:20 Test Item Value Reference Range Interpretation Comments HGB A1C (test code = 8.9 % 4.0-5.7 H 4548-4) JENNIFFER (test code = JENNIFFER) Reference RangesNormal: <5.7%Prediabetes: 5.7 - 6.4%Diabetes: > 6.5% Lab Interpretation (test Abnormal code = 69622-3) [facility] CenterTROPONIN [id number] 03:04:27 Test Item Value Reference Interpretation Comments Range TROPONIN I (test 0.002 ng/mL See_Comment [Automated code = 1426143004) message] The system which generated this result [...] biotin. Lab Interpretation Normal (test code = 96525-4) [facility]N-TERMINAL [id number] 03:01:09 Test Item Value Reference Range Interpretation Comments NT-proBNP (test code 358 pg/mL See_Comment H [Autom ated = 6230526089) message] The system which generated this result transmitted reference range : <=125. The reference range was not used to interpret this result as normal/abnormal . JENNIFFER (test code = JENNIFFER) Biotin has been reported to cause a negative bias, interpret results relative to patient's use of biotin. Lab Interpretation Abnormal (test code = 83948-7) [facility] CenterACTIV[facility]IAL THRMPLAS [id number] 02:54:28 Test Item Value Reference Range Interpretation Comments APTT Patient (test See_Comment [Automat ed code = 3173-2) message] The system which generated this result transmitted reference range : 23 - 38 Seconds . The reference range was not used to interpr et this result as normal/abnormal . JENNIFFER (test code = JENNIFFER) The [facility] patient population mean normal value for aPTT is 30 seconds. Lab Interpretation Normal (test code = 56759-1) [facility]. METABOLIC PANEL ([id number])2022-01-28 02:52:27 Test Item Value Reference Range Interpretation Comments NA (test code = 137 mmol/L 135-145 7432304568) K (test code = 5.0 mmol/L 3.5-5.0 3431226468) CL (test code = 101 mmol/L 98-108 0629820785) CO2 TOTAL (test code = 22 mmol/L 23-31 L 3644110498) AGAP (test code = 2-16 2072727940) BUN (test code = 21 mg/dL 7-23 7253818136) GLUCOSE (test code = 334 mg/dL 70-110 H 2706252766) CREATININE (test code = 1.03 mg/dL 0.50-1.04 7984949634) TOTAL BILI (test code = 0.8 mg/dL 0.1-1.9 4399890236) CALCIUM (test code = 9.0 mg/dL 8.6-10.6 3994301723) T PROTEIN (test code = 7.3 g/dL 6.3-8.2 0884624537) ALBUMIN (test code = 4.2 g/dL 3.5-5.0 9772278130) ALK PHOS (test code = 186 U/L 34-122 H 2341275165) ALTv (test code = 53 U/L 5-35 H 1742-6) AST(SGOT) (test code = 98 U/L 13-40 H 1268280830) eGFR (test code = mL/min/1.73m2 2915006311) JENNIFFER (test code = JENNIFFER) Association of [...] tests). Lab Interpretation Abnormal (test code = 11429-2) [facility] CenterPROTHROMBIN TIME / [id number] 02:51:06 Test Item Value Reference Range Interpretation [...] tions. Lab Interpretation (test Normal code = 54727-7) [facility] CenterCBC WITH [id number] 02:43:03 Test Item Value Reference Range Interpretation Comments WBC (test code = See_Comment [Automated 8590-2) message] The sy stem which generated this result transmitted reference range : 4.30 - 11.10 10*3/?L. The reference range was not used to interpret this result as normal/abnormal . RBC (test code = See_Comment L [Automated 559-8) message] The sy stem which generated this [...] RDW-SD (test code = 49.4 fL 39.0-49.9 16539-3) RDW-CV (test code = 15.6 % 12.0-15.5 H 788-0) PLT (test code = See_Comment [Automated 777-3) message] The sy stem which generated this result transmitted reference range : 166 - 358 10*3/ ?L. The reference r josselyn was not used to interpret this result as normal/abnormal . MPV (test code = 9.7 fL 9.5-12.9 97761-7) NRBC/100 WBC (test See_Comment [Automat ed code = 4819771006) message] The system which generated this result transmitted reference range : 0.0 - 10.0 /100 WBCs. The refer ence range was not u sed to interpret th is result as normal/abnormal . NRBC x10^3 (test code <0.01 See_Comment [Auto mated = 9696321075) message] The s ystem which generated this result transmitted reference range : 10*3/?L. The reference range was not used to interpret this result as normal/abnormal . GRAN MAT (NEUT) % 88.0 % (test code = 770-8) IMM GRAN % (test code 0.60 % = 0830790106) LYMPH % (test code = 5.4 % 736-9) MONO % (test code = 4.5 % 5905-5) EOS % (test code = 0.9 % 713-8) BASO % (test code = 0.6 % 706-2) GRAN MAT x10^3(ANC) 9.50 10*3/uL 1.88-7.09 H (test code = 0564598551) IMM GRAN x10^3 (test 0.06 10*3/uL 0.00-0.06 code = 6948287552) LYMPH x10^3 (test code 0.58 10*3/uL 1.32-3.29 L = 731-0) MONO x10^3 (test code 0.49 10*3/uL 0.33-0.92 = 742-7) EOS x10^3 (test code = 0.10 10*3/uL 0.03-0.39 711-2) BASO x10^3 (test code 0.06 10*3/uL 0.01-0.07 = 704-7) Lab Interpretation Abnormal (test code = 74629-0) [facility] ([id number])2022-01-12 23:54:59 Test Item Value Reference Range Interpretation Comments NA (test code = 143 mmol/L 135-145 9669959151) K (test code = 4.1 mmol/L 3.5-5.0 9173010950) CL (test code = 103 mmol/L 98-108 6656155361) CO2 TOTAL (test code = 27 mmol/L 23-31 4286339299) AGAP (test code = 2-16 2760678760) BUN (test code = 12 mg/dL 7-23 5647397940) GLUCOSE (test code = 278 mg/dL 70-110 H 1388726973) CREATININE (test code = 0.61 mg/dL 0.50-1.04 4457402659) TOTAL BILI (test code = 0.6 mg/dL 0.1-1.4 0168493502) CALCIUM (test code = 9.6 mg/dL 8.6-10.6 8930348563) T PROTEIN (test code = 7.6 g/dL 6.3-8.2 4836709626) ALBUMIN (test code = 4.3 g/dL 3.5-5.0 3077270124) ALK PHOS (test code = 130 U/L 34-122 H 3117663368) ALTv (test code = 29 U/L 5-35 1742-6) AST(SGOT) (test code = 39 U/L 13-40 8094301430) eGFR (test code = mL/min/1.73m2 2815750453) JENNIFFER (test code = JENNIFFER) Association of [...] tests). Lab Interpretation Abnormal (test code = 34385-6) [facility] WITH [id number] 23:43:55 Test Item Value Reference Range Interpretation [...] (test code = 47.8 fL 39.0-49.9 Previous 99332-3) preliminary verified result was 48.1 fL on [...] (test code = 10.0 fL 9.5-12.9 Previous 53014-0) preliminary verified result was 9.9 fL on 2021 at 1842 CDT IPF % (test code = 3.9 % 1.3-7.7 Platelet count 6448031857) measured by fluorescence method. NRBC/100 WBC (test See_Comment [Automat ed code = 2842593893) message] The system which generated this result transmitted reference range : 0.0 - 10.0 /100 WBCs. The refer ence range was not u sed to interpret th is result as normal/abnormal . NRBC x10^3 (test code <0.01 See_Comment [Auto mated = 6994916429) message] The s ystem which generated this result transmitted reference range : 10*3/?L. The reference range was not used to interpret this result as normal/abnormal . GRAN MAT (NEUT) % 85.9 % (test code = 770-8) IMM GRAN % (test code 0.90 % = 5193580313) LYMPH % (test code = 4.7 % 736-9) MONO % (test code = 5.3 % 5905-5) EOS % (test code = 2.6 % 713-8) BASO % (test code = 0.6 % 706-2) GRAN MAT x10^3(ANC) 6.93 10*3/uL 1.88-7.09 (test code = 7194399731) IMM GRAN x10^3 (test 0.07 10*3/uL 0.00-0.06 H code = 5696341531) LYMPH x10^3 (test code 0.38 10*3/uL 1.32-3.29 L = 731-0) MONO x10^3 (test code 0.43 10*3/uL 0.33-0.92 = 742-7) EOS x10^3 (test code = 0.21 10*3/uL 0.03-0.39 711-2) BASO x10^3 (test code 0.05 10*3/uL 0.01-0.07 = 704-7) Lab Interpretation Abnormal (test code = 64646-0) [facility] + LACTIC [id number] 23:29:12 Test Item Value Reference Range Interpretation Comments PH (test code = 7.32-7.42 L 5323529688) PCO2 CELIA (test code = See_Comment H [Auto mated 1490833581) message] The sy stem which generated this result transmitted reference range : 41 - 51 mmHg. The reference range was not used to interpret this result as normal/abnormal . PO2 CELIA (test code = See_Comment HH [Autom ated 8816449414) message] The sy stem which generated this result transmitted reference range : 25 - 40 mmHg. The reference range was not used to interpret this result as normal/abnormal . HCO3 CELIA (test code = See_Comment H [Auto mated 4397236456) message] The sy stem which generated this result transmitted reference range : 24 - 28 mEq/L. The reference range was not used to interpret this result as normal/abnormal . AC VBE(BEAKER) (test mEq/L code = 2390675474) THB CELIA (test code = 12.1 g/dL 12.0-16.0 0448164334) %O2HB CELIA (test code = 90.8 % 52.0-63.0 H 6114122643) %COHB CELIA (test code = 0.0 % 0.0-1.5 3516205757) %METHB CELIA (test code = 0.0 % 0.4-1.5 L 4998596226) VOL%O2 CELIA (test code = 15.5 % 6.0-12.0 H 9897881490) NA (test code = 145 mmol/L 135-145 4545493435) K+ (test code = 4.1 mmol/L 3.5-5.0 7195446787) AC CA IONZ (test code = 5.30 mg/dL 4.50-5.30 3753683289) GLUCOSE (test code = 291 mg/dL 70-110 H 5837875259) LACTIC ACID (test code 1.04 mmol/L 0.50-2.20 = 3838651189) Lab Interpretation Abnormal (test code = 39227-4) [facility] GLUCOSE (AUTOMATED)2022-01-12 17:49:50 Test Item Value Reference Range Interpretation Comments POCT GLU (test code = 4867214986) 120 mg/dL 70-110 H Lab Interpretation (test code = Abnormal 07996-0) [facility] GLUCOSE (AUTOMATED)2022-01-12 13:25:37 Test Item Value Reference Range Interpretation Comments POCT GLU (test code = 8026940829) 76 mg/dL 70-110 Lab Interpretation (test code = Normal 84798-1) [facility] GLUCOSE (AUTOMATED)2022-01-12 05:53:23 Test Item Value Reference Range Interpretation Comments POCT GLU (test code = 6477173668) 107 mg/dL 70-110 Lab Interpretation (test code = Normal 74862-8) [facility] GLUCOSE (AUTOMATED)2022-01-11 23:03:13 Test Item Value Reference Range Interpretation Comments POCT GLU (test code = 9643572301) 142 mg/dL 70-110 H Lab Interpretation (test code = Abnormal 06034-3) [facility] GLUCOSE (AUTOMATED)2022-01-11 17:22:09 Test Item Value Reference Range Interpretation Comments POCT GLU (test code = 7004390151) 106 mg/dL 70-110 Lab Interpretation (test code = Normal 57222-3) [facility] GLUCOSE (AUTOMATED)2022-01-11 13:11:20 Test Item Value Reference Range Interpretation Comments POCT GLU (test code = 9494099726) 91 mg/dL 70-110 Lab Interpretation (test code = Normal 80261-3) [facility] METABOLIC PANEL (NA, K, CL, CO2, GLUCOSE, BUN, CREATININE, CA)2022-01-11 11:52:16 Test Item Value Reference Range Interpretation Comments NA (test code = 141 mmol/L 135-145 8130021283) K (test code = 3.7 mmol/L 3.5-5.0 8043496329) CL (test code = 100 mmol/L 98-108 6665325935) CO2 TOTAL (test code 30 mmol/L 23-31 = 8464330190) AGAP (test code = 2-16 7170808848) BUN (test code = 14 mg/dL 7-23 4140562209) GLUCOSE (test code = 85 mg/dL 70-110 4023979638) CREATININE (test code 0.62 mg/dL 0.50-1.04 = 6553302856) CALCIUM (test code = 8.9 mg/dL 8.6-10.6 9022779095) eGFR (test code = mL/min/1.73m2 8394730987) JENNIFFER (test code = JENNIFFER) Association of [...] or urine or abnormalities in imaging tests). [facility] 11:52:16 Test Item Value Reference Range Interpretation Comments MAGNESIUM (test code = 2072588589) 1.9 mg/dL 1.7-2.4 Lab Interpretation (test code = Normal 48203-0) [facility]22-[facility]-11 11:36:18 Test Item Value Reference Range Interpretation Comments POCT GLU (test code = 6889335695) 95 mg/dL 70-110 Lab Interpretation (test code = Normal 65312-7) [facility] [id number] 10:51:12 Test Item Value Reference Range Interpretation Comments WBC (test code = See_Comment [Automated 2590-2) message] The sy stem which generated this result transmitted reference range : 4.30 - 11.10 10*3/?L. The reference range was not used to interpret this result as normal/abnormal . RBC (test code = See_Comment L [Automated 399-8) message] The sy stem which generated this [...] RDW-SD (test code = 46.5 fL 39.0-49.9 63054-3) RDW-CV (test code = 14.3 % 12.0-15.5 788-0) PLT (test code = See_Comment [Automated 777-3) message] The sy stem which generated this result transmitted reference range : 166 - 358 10*3/ ?L. The reference r josselyn was not used to interpret this result as normal/abnormal . MPV (test code = 8.5 fL 9.5-12.9 L 35581-1) NRBC/100 WBC (test See_Comment [Automat ed code = 7180151070) message] The system which generated this result transmitted reference range : 0.0 - 10.0 /100 WBCs. The refer ence range was not u sed to interpret th is result as normal/abnormal . NRBC x10^3 (test code <0.01 See_Comment [Auto mated = 2134983260) message] The s ystem which generated this result transmitted reference range : 10*3/?L. The reference range was not used to interpret this result as normal/abnormal . GRAN MAT (NEUT) % 72.4 % (test code = 770-8) IMM GRAN % (test code 0.60 % = 4524469989) LYMPH % (test code = 12.0 % 736-9) MONO % (test code = 9.8 % 5905-5) EOS % (test code = 4.4 % 713-8) BASO % (test code = 0.8 % 706-2) GRAN MAT x10^3(ANC) 4.64 10*3/uL 1.88-7.09 (test code = 4906662762) IMM GRAN x10^3 (test 0.04 10*3/uL 0.00-0.06 code = 3059811281) LYMPH x10^3 (test code 0.77 10*3/uL 1.32-3.29 L = 731-0) MONO x10^3 (test code 0.63 10*3/uL 0.33-0.92 = 742-7) EOS x10^3 (test code = 0.28 10*3/uL 0.03-0.39 711-2) BASO x10^3 (test code 0.05 10*3/uL 0.01-0.07 = 704-7) Lab Interpretation Abnormal (test code = 01710-6) [facility] GLUCOSE (AUTOMATED)2022-01-11 04:16:05 Test Item Value Reference Range Interpretation Comments POCT GLU (test code = 5903376614) 100 mg/dL 70-110 Lab Interpretation (test code = Normal 66263-5) [facility] GLUCOSE (AUTOMATED)2022-01-10 22:37:14 Test Item Value Reference Range Interpretation Comments POCT GLU (test code = 1561333001) 109 mg/dL 70-110 Lab Interpretation (test code = Normal 83410-1) [facility] GLUCOSE (AUTOMATED)2022-01-10 16:49:31 Test Item Value Reference Range Interpretation Comments POCT GLU (test code = 5478485218) 151 mg/dL 70-110 H Lab Interpretation (test code = Abnormal 51320-6) [facility] GLUCOSE (AUTOMATED)2022-01-10 13:04:04 Test Item Value Reference Range Interpretation Comments POCT GLU (test code = 7449972252) 133 mg/dL 70-110 H Lab Interpretation (test code = Abnormal 46104-9) [facility] GLUCOSE (AUTOMATED)2022-01-10 10:48:27 Test Item Value Reference Range Interpretation Comments POCT GLU (test code = 7551942149) 140 mg/dL 70-110 H Lab Interpretation (test code = Abnormal 56839-1) [facility] METABOLIC PANEL (NA, K, CL, CO2, GLUCOSE, BUN, CREATININE, CA)2022-01-10 07:43:41 Test Item Value Reference Range Interpretation Comments NA (test code = 139 mmol/L 135-145 0261650599) K (test code = 4.1 mmol/L 3.5-5.0 8334800574) CL (test code = 100 mmol/L 98-108 4356287777) CO2 TOTAL (test code = 32 mmol/L 23-31 H 1591995700) AGAP (test code = 2-16 1082693366) BUN (test code = 18 mg/dL 7-23 8111465985) GLUCOSE (test code = 146 mg/dL 70-110 H 4567191744) CREATININE (test code = 0.79 mg/dL 0.50-1.04 7652169165) CALCIUM (test code = 8.7 mg/dL 8.6-10.6 1198714702) eGFR (test code = mL/min/1.73m2 9999932541) JENNIFFER (test code = JENNIFFER) Association of [...] tests). Lab Interpretation Abnormal (test code = 83873-7) [facility] Test Item Value Reference Range Interpretation Comments MAGNESIUM (test code = 1787132419) 2.1 mg/dL 1.7-2.4 Lab Interpretation (test code = Normal 37872-7) [facility] WITH [id number] 07:29:01 Test Item Value Reference Range Interpretation [...] RDW-SD (test code = 47.2 fL 39.0-49.9 13094-8) RDW-CV (test code = 14.1 % 12.0-15.5 788-0) PLT (test code = See_Comment [Automated 777-3) message] The sy stem which generated this result transmitted reference range : 166 - 358 10*3/ ?L. The reference r josselyn was not used to interpret this result as normal/abnormal . MPV (test code = 8.3 fL 9.5-12.9 L 50001-9) NRBC/100 WBC (test See_Comment [Automat ed code = 3189095975) message] The system which generated this result transmitted reference range : 0.0 - 10.0 /100 WBCs. The refer ence range was not u sed to interpret th is result as normal/abnormal . NRBC x10^3 (test code <0.01 See_Comment [Auto mated = 8204232076) message] The s [employer] which generated this result transmitted reference range : 10*3/?L. The reference range was not used to interpret this result as normal/abnormal . GRAN MAT (NEUT) % 75.5 % (test code = 770-8) IMM GRAN % (test code 0.50 % = 5685709289) LYMPH % (test code = 13.6 % 736-9) MONO % (test code = 5.4 % 5905-5) EOS % (test code = 4.4 % 713-8) BASO % (test code = 0.6 % 706-2) GRAN MAT x10^3(ANC) 5.01 10*3/uL 1.88-7.09 (test code = 3365719752) IMM GRAN x10^3 (test 0.03 10*3/uL 0.00-0.06 code = 5271722625) LYMPH x10^3 (test code 0.90 10*3/uL 1.32-3.29 L = 731-0) MONO x10^3 (test code 0.36 10*3/uL 0.33-0.92 = 742-7) EOS x10^3 (test code = 0.29 10*3/uL 0.03-0.39 711-2) BASO x10^3 (test code 0.04 10*3/uL 0.01-0.07 = 704-7) Lab Interpretation Abnormal (test code = 50548-9) [facility] GLUCOSE (AUTOMATED)2022-01-10 04:49:48 Test Item Value Reference Range Interpretation Comments POCT GLU (test code = 6718788984) 150 mg/dL 70-110 H Lab Interpretation (test code = Abnormal 46059-1) [facility] GLUCOSE (AUTOMATED)2022-01-09 17:24:10 Test Item Value Reference Range Interpretation Comments POCT GLU (test code = 2305332479) 114 mg/dL 70-110 H Lab Interpretation (test code = Abnormal 52000-5) [facility] GLUCOSE (AUTOMATED)2022-01-09 12:48:19 Test Item Value Reference Range Interpretation Comments POCT GLU (test code = 5734140823) 107 mg/dL 70-110 Lab Interpretation (test code = Normal 46943-5) [facility] METABOLIC PANEL (NA, K, CL, CO2, GLUCOSE, BUN, CREATININE, CA)2022-01-09 11:11:00 Test Item Value Reference Range Interpretation Comments NA (test code = 141 mmol/L 135-145 8506510076) K (test code = 3.7 mmol/L 3.5-5.0 3944090847) CL (test code = 100 mmol/L 98-108 3368427800) CO2 TOTAL (test code = 32 mmol/L 23-31 H 4526434647) AGAP (test code = 2-16 2023266640) BUN (test code = 19 mg/dL 7-23 5570829141) GLUCOSE (test code = 115 mg/dL 70-110 H 4115272880) CREATININE (test code = 0.81 mg/dL 0.50-1.04 6128322049) CALCIUM (test code = 8.6 mg/dL 8.6-10.6 8801706852) eGFR (test code = mL/min/1.73m2 6789758567) JENNIFFER (test code = JENNIFFER) Association of [...] tests). Lab Interpretation Abnormal (test code = 33820-3) [facility] WITH [id number] 10:57:57 Test Item Value Reference Range Interpretation [...] RDW-SD (test code = 49.1 fL 39.0-49.9 93217-9) RDW-CV (test code = 14.6 % 12.0-15.5 788-0) PLT (test code = See_Comment [Automated 777-3) message] The sy stem which generated this result transmitted reference range : 166 - 358 10*3/ ?L. The reference r josselyn was not used to interpret this result as normal/abnormal . MPV (test code = 8.6 fL 9.5-12.9 L 55031-0) NRBC/100 WBC (test See_Comment [Automat ed code = 8148263735) message] The system which generated this result transmitted reference range : 0.0 - 10.0 /100 WBCs. The refer ence range was not u sed to interpret th is result as normal/abnormal . NRBC x10^3 (test code <0.01 See_Comment [Auto mated = 8152439052) message] The s ystem which generated this result transmitted reference range : 10*3/?L. The reference range was not used to interpret this result as normal/abnormal . GRAN MAT (NEUT) % 79.2 % (test code = 770-8) IMM GRAN % (test code 0.40 % = 6622255866) LYMPH % (test code = 10.7 % 736-9) MONO % (test code = 5.4 % 5905-5) EOS % (test code = 3.5 % 713-8) BASO % (test code = 0.8 % 706-2) GRAN MAT x10^3(ANC) 6.15 10*3/uL 1.88-7.09 (test code = 7674863451) IMM GRAN x10^3 (test 0.03 10*3/uL 0.00-0.06 code = 7001470071) LYMPH x10^3 (test code 0.83 10*3/uL 1.32-3.29 L = 731-0) MONO x10^3 (test code 0.42 10*3/uL 0.33-0.92 = 742-7) EOS x10^3 (test code = 0.27 10*3/uL 0.03-0.39 711-2) BASO x10^3 (test code 0.06 10*3/uL 0.01-0.07 = 704-7) Lab Interpretation Abnormal (test code = 60290-6) [facility] GLUCOSE (AUTOMATED)2022-01-09 10:44:16 Test Item Value Reference Range Interpretation Comments POCT GLU (test code = 4247577116) 116 mg/dL 70-110 H Lab Interpretation (test code = Abnormal 25487-1) [facility] GLUCOSE (AUTOMATED)2022-01-09 04:22:02 Test Item Value Reference Range Interpretation Comments POCT GLU (test code = 3886965943) 124 mg/dL 70-110 H Lab Interpretation (test code = Abnormal 88030-3) [facility] GLUCOSE (AUTOMATED)2022-01-08 23:21:27 Test Item Value Reference Range Interpretation Comments POCT GLU (test code = [id number]) 122 mg/dL 70-110 H Lab Interpretation (test code = Abnormal 79750-2) [facility] GLUCOSE (AUTOMATED)2022-01-08 18:15:20 Test Item Value Reference Range Interpretation Comments POCT GLU (test code = [id number]) 104 mg/dL 70-110 Lab Interpretation (test code = Normal 25045-9) [facility] GLUCOSE (AUTOMATED)2022-01-08 13:35:04 Test Item Value Reference Range Interpretation Comments POCT GLU (test code = [id number]) 132 mg/dL 70-110 H Lab Interpretation (test code = Abnormal 01156-3) [facility] METABOLIC PANEL (NA, K, CL, CO2, GLUCOSE, BUN, CREATININE, CA)2022-01-08 11:08:57 Test Item Value Reference Range Interpretation Comments NA (test code = 142 mmol/L 135-145 [id number]) K (test code = 3.5 mmol/L 3.5-5.0 5364792596) CL (test code = 99 mmol/L 98-108 3239773360) CO2 TOTAL (test code = 34 mmol/L 23-31 H 5393362579) AGAP (test code = 2-16 4877947538) BUN (test code = 16 mg/dL 7-23 4634240691) GLUCOSE (test code = 131 mg/dL 70-110 H 8126010188) CREATININE (test code = 0.83 mg/dL 0.50-1.04 9910274202) CALCIUM (test code = 8.5 mg/dL 8.6-10.6 L 4086630311) eGFR (test code = mL/min/1.73m2 1888331797) JENNIFFER (test code = JENNIFFER) Association of [...] tests). Lab Interpretation Abnormal (test code = 93157-8) [facility] WITH [id number] 10:58:37 Test Item Value Reference Range Interpretation Comments WBC (test code = See_Comment [Automated 0990-2) message] The sy stem which generated this result transmitted reference range : 4.30 - 11.10 10*3/?L. The reference range was not used to interpret this result as normal/abnormal . RBC (test code = See_Comment L [Automated 219-8) message] The sy stem which generated this [...] RDW-SD (test code = 48.8 fL 39.0-49.9 37113-4) RDW-CV (test code = 14.7 % 12.0-15.5 788-0) PLT (test code = See_Comment [Automated 777-3) message] The sy stem which generated this result transmitted reference range : 166 - 358 10*3/ ?L. The reference r josselyn was not used to interpret this result as normal/abnormal . MPV (test code = 8.5 fL 9.5-12.9 L 39306-3) NRBC/100 WBC (test See_Comment [Automat ed code = 4306341521) message] The system which generated this result transmitted reference range : 0.0 - 10.0 /100 WBCs. The refer ence range was not u sed to interpret th is result as normal/abnormal . NRBC x10^3 (test code <0.01 See_Comment [Auto mated = 1993367219) message] The s ystem which generated this result transmitted reference range : 10*3/?L. The reference range was not used to interpret this result as normal/abnormal . GRAN MAT (NEUT) % 75.9 % (test code = 770-8) IMM GRAN % (test code 0.30 % = 7877719611) LYMPH % (test code = 12.3 % 736-9) MONO % (test code = 7.0 % 5905-5) EOS % (test code = 3.6 % 713-8) BASO % (test code = 0.9 % 706-2) GRAN MAT x10^3(ANC) 4.89 10*3/uL 1.88-7.09 (test code = 7760073546) IMM GRAN x10^3 (test <0.03 0.00-0.06 code = 2391697945) LYMPH x10^3 (test code 0.79 10*3/uL 1.32-3.29 L = 731-0) MONO x10^3 (test code 0.45 10*3/uL 0.33-0.92 = 742-7) EOS x10^3 (test code = 0.23 10*3/uL 0.03-0.39 711-2) BASO x10^3 (test code 0.06 10*3/uL 0.01-0.07 = 704-7) Lab Interpretation Abnormal (test code = 31547-3) [facility] GLUCOSE (AUTOMATED)2022-01-08 10:57:56 Test Item Value Reference Range Interpretation Comments POCT GLU (test code = 8649081311) 122 mg/dL 70-110 H Lab Interpretation (test code = Abnormal 87345-6) [facility] GLUCOSE (AUTOMATED)2022-01-08 05:44:22 Test Item Value Reference Range Interpretation Comments POCT GLU (test code = 3152177989) 150 mg/dL 70-110 H Lab Interpretation (test code = Abnormal 95402-2) [facility] GLUCOSE (AUTOMATED)2022-01-07 22:00:04 Test Item Value Reference Range Interpretation Comments POCT GLU (test code = 7807686349) 175 mg/dL 70-110 H Lab Interpretation (test code = Abnormal 12131-2) [facility] GLUCOSE (AUTOMATED)2022-01-07 17:25:35 Test Item Value Reference Range Interpretation Comments POCT GLU (test code = 2556342138) 149 mg/dL 70-110 H Lab Interpretation (test code = Abnormal 08331-4) [facility] Culture - Peripheral [id number] 15:01:23 Test Item Value Reference Range Interpretation Comments Blood Culture-Aerobic No organisms No growth Previo us (test code = 85551-8) isolated prelim inary verified result was Culture [...] Culture-Anaerobic isolated preliminar y (test code = 51340-5) verifi ed result was Culture In Progress [...] CDT Lab Interpretation Normal (test code = 52097-4) [facility] Ve[facility] # [id number] 15:01:23 Test Item Value Reference Range Interpretation Comments Blood Culture-Aerobic No organisms No growth Previo us (test code = 57229-3) isolated prelim inary verified result was Culture [...] Culture-Anaerobic isolated preliminar y (test code = 15279-7) verifi ed result was Culture In Progress [...] CDT Lab Interpretation Normal (test code = 20170-6) [facility] 13:20:20 Test Item Value Reference Range Interpretation Comments POCT GLU (test code = 7289779747) 153 mg/dL 70-110 H Lab Interpretation (test code = Abnormal 50673-4) [facility] (NA, K, CL, CO2, GLUCOSE, BUN, CREATININE, CA)2022-01-07 07:43:22 Test Item Value Reference Range Interpretation Comments NA (test code = 141 mmol/L 135-145 7045794081) K (test code = 3.8 mmol/L 3.5-5.0 2289973303) CL (test code = 101 mmol/L 98-108 7511771763) CO2 TOTAL (test code = 33 mmol/L 23-31 H 6715963445) AGAP (test code = 2-16 0605776365) BUN (test code = 13 mg/dL 7-23 8319426551) GLUCOSE (test code = 127 mg/dL 70-110 H 4411518433) CREATININE (test code = 0.89 mg/dL 0.50-1.04 1617729452) CALCIUM (test code = 8.4 mg/dL 8.6-10.6 L 5974804529) eGFR (test code = mL/min/1.73m2 2152594234) JENNIFFER (test code = JENNIFFER) Association of [...] tests). Lab Interpretation Abnormal (test code = 88373-2) [facility] with [id number] 07:29:22 Test Item Value Reference Range Interpretation Comments WBC (test code = See_Comment [Automated 1769-2) message] The sy stem which generated this result transmitted reference range : 4.30 - 11.10 10*3/?L. The reference range was not used to interpret this result as normal/abnormal . RBC (test code = See_Comment L [Automated 259-8) message] The sy stem which generated this [...] RDW-SD (test code = 48.2 fL 39.0-49.9 15189-6) RDW-CV (test code = 14.7 % 12.0-15.5 788-0) PLT (test code = See_Comment [Automated 777-3) message] The sy stem which generated this result transmitted reference range : 166 - 358 10*3/ ?L. The reference r josselyn was not used to interpret this result as normal/abnormal . MPV (test code = 9.0 fL 9.5-12.9 L 70975-3) NRBC/100 WBC (test See_Comment [Automat ed code = 0530424963) message] The system which generated this result transmitted reference range : 0.0 - 10.0 /100 WBCs. The refer ence range was not u sed to interpret th is result as normal/abnormal . NRBC x10^3 (test code <0.01 See_Comment [Auto mated = 3314279332) message] The s ystem which generated this result transmitted reference range : 10*3/?L. The reference range was not used to interpret this result as normal/abnormal . GRAN MAT (NEUT) % 81.4 % (test code = 770-8) IMM GRAN % (test code 0.30 % = 2085536687) LYMPH % (test code = 10.3 % 736-9) MONO % (test code = 4.6 % 5905-5) EOS % (test code = 2.8 % 713-8) BASO % (test code = 0.6 % 706-2) GRAN MAT x10^3(ANC) 6.39 10*3/uL 1.88-7.09 (test code = 7313205683) IMM GRAN x10^3 (test <0.03 0.00-0.06 code = 0945530241) LYMPH x10^3 (test code 0.81 10*3/uL 1.32-3.29 L = 731-0) MONO x10^3 (test code 0.36 10*3/uL 0.33-0.92 = 742-7) EOS x10^3 (test code = 0.22 10*3/uL 0.03-0.39 711-2) BASO x10^3 (test code 0.05 10*3/uL 0.01-0.07 = 704-7) Lab Interpretation Abnormal (test code = 49523-9) [facility] 05:54:55 Test Item Value Reference Range Interpretation Comments POCT GLU (test code = 9505720745) 125 mg/dL 70-110 H Lab Interpretation (test code = Abnormal 40346-0) [facility] [id number] 04:01:23 Test Item Value Reference Range Interpretation Comments Blood Culture-Aerobic No organisms No growth Previo us (test code = 55084-2) isolated prelim inary verified result was Culture [...] Culture-Anaerobic isolated preliminar y (test code = 68648-4) verifi ed result was Culture In Progress [...] accordingly. Lab Interpretation Normal (test code = 80356-9) [facility] [id number] 03:01:22 Test Item Value Reference Range Interpretation Comments Blood Culture-Aerobic No organisms No growth Previo us (test code = 40060-3) isolated prelim inary verified result was Culture [...] Culture-Anaerobic isolated preliminar y (test code = 08439-6) verifi ed result was Culture In Progress [...] accordingly. Lab Interpretation Normal (test code = 43632-9) [facility] GLUCOSE (AUTOMATED)2022-01-06 23:38:26 Test Item Value Reference Range Interpretation Comments POCT GLU (test code = 7811167414) 181 mg/dL 70-110 H Lab Interpretation (test code = Abnormal 68806-3) [facility] GLUCOSE (AUTOMATED)2022-01-06 22:44:50 Test Item Value Reference Range Interpretation Comments POCT GLU (test code = 0739573072) 198 mg/dL 70-110 H Lab Interpretation (test code = Abnormal 74360-2) [facility] GLUCOSE (AUTOMATED)2022-01-06 17:41:24 Test Item Value Reference Range Interpretation Comments POCT GLU (test code = 4889741527) 172 mg/dL 70-110 H Lab Interpretation (test code = Abnormal 15826-8) [facility] GLUCOSE (AUTOMATED)2022-01-06 13:48:08 Test Item Value Reference Range Interpretation Comments POCT GLU (test code = 1266981027) 175 mg/dL 70-110 H Lab Interpretation (test code = Abnormal 32401-1) [facility] METABOLIC PANEL (NA, K, CL, CO2, GLUCOSE, BUN, CREATININE, CA)2022-01-06 09:39:37 Test Item Value Reference Range Interpretation Comments NA (test code = 139 mmol/L 135-145 2085325099) K (test code = 3.6 mmol/L 3.5-5.0 8057605003) CL (test code = 104 mmol/L 98-108 0151040511) CO2 TOTAL (test code = 30 mmol/L 23-31 3749766235) AGAP (test code = 2-16 8879457048) BUN (test code = 15 mg/dL 7-23 5899262886) GLUCOSE (test code = 164 mg/dL 70-110 H 7702420169) CREATININE (test code = 0.83 mg/dL 0.50-1.04 5927549005) CALCIUM (test code = 7.9 mg/dL 8.6-10.6 L 6335752299) eGFR (test code = mL/min/1.73m2 8941842218) JENNIFFER (test code = JENNIFFER) Association of [...] tests). Lab Interpretation Abnormal (test code = 58105-3) [facility] 09:39:37 Test Item Value Reference Range Interpretation Comments MAGNESIUM (test code = 5701912692) 2.5 mg/dL 1.7-2.4 H Lab Interpretation (test code = Abnormal 42802-6) [facility] 09:39:37 Test Item Value Reference Range Interpretation Comments PHOSPHORUS (test code = 6381378146) 3.8 mg/dL 2.5-5.0 Lab Interpretation (test code = Normal 43169-6) [facility] WITH [id number] 09:29:28 Test Item Value Reference Range Interpretation [...] RDW-SD (test code = 46.7 fL 39.0-49.9 03110-5) RDW-CV (test code = 14.5 % 12.0-15.5 788-0) PLT (test code = See_Comment [Automated 777-3) message] The sy stem which generated this result transmitted reference range : 166 - 358 10*3/ ?L. The reference r josselyn was not used to interpret this result as normal/abnormal . MPV (test code = 8.9 fL 9.5-12.9 L 68691-1) NRBC/100 WBC (test See_Comment [Automat ed code = 3682682936) message] The system which generated this result transmitted reference range : 0.0 - 10.0 /100 WBCs. The refer ence range was not u sed to interpret th is result as normal/abnormal . NRBC x10^3 (test code <0.01 See_Comment [Auto mated = 9158981504) message] The s ystem which generated this result transmitted reference range : 10*3/?L. The reference range was not used to interpret this result as normal/abnormal . GRAN MAT (NEUT) % 74.7 % (test code = 770-8) IMM GRAN % (test code 0.30 % = 4607625899) LYMPH % (test code = 15.5 % 736-9) MONO % (test code = 5.5 % 5905-5) EOS % (test code = 3.3 % 713-8) BASO % (test code = 0.7 % 706-2) GRAN MAT x10^3(ANC) 4.34 10*3/uL 1.88-7.09 (test code = 4876586399) IMM GRAN x10^3 (test <0.03 0.00-0.06 code = 8502315591) LYMPH x10^3 (test code 0.90 10*3/uL 1.32-3.29 L = 731-0) MONO x10^3 (test code 0.32 10*3/uL 0.33-0.92 L = 742-7) EOS x10^3 (test code = 0.19 10*3/uL 0.03-0.39 711-2) BASO x10^3 (test code 0.04 10*3/uL 0.01-0.07 = 704-7) Lab Interpretation Abnormal (test code = 11382-1) [facility] GLUCOSE (AUTOMATED)2022-01-05 20:46:31 Test Item Value Reference Range Interpretation Comments POCT GLU (test code = 1633818627) 175 mg/dL 70-110 H Lab Interpretation (test code = Abnormal 65192-3) [facility] GLUCOSE (AUTOMATED)2022-01-05 17:13:26 Test Item Value Reference Range Interpretation Comments POCT GLU (test code = 2988666148) 233 mg/dL 70-110 H Lab Interpretation (test code = Abnormal 97020-7) [facility] GLUCOSE (AUTOMATED)2022-01-05 13:24:19 Test Item Value Reference Range Interpretation Comments POCT GLU (test code = 8589619816) 208 mg/dL 70-110 H Lab Interpretation (test code = Abnormal 83367-5) [facility] METABOLIC PANEL (NA, K, CL, CO2, GLUCOSE, BUN, CREATININE, CA)2022-01-05 09:23:42 Test Item Value Reference Range Interpretation Comments NA (test code = 139 mmol/L 135-145 7298607381) K (test code = 3.7 mmol/L 3.5-5.0 3984857523) CL (test code = 102 mmol/L 98-108 4675389403) CO2 TOTAL (test code = 31 mmol/L 23-31 8077503105) AGAP (test code = 2-16 4196197874) BUN (test code = 19 mg/dL 7-23 9360989828) GLUCOSE (test code = 166 mg/dL 70-110 H 8029895736) CREATININE (test code = 0.85 mg/dL 0.50-1.04 8888568106) CALCIUM (test code = 8.1 mg/dL 8.6-10.6 L 6904338949) eGFR (test code = mL/min/1.73m2 1134332156) JENNIFFER (test code = JENNIFFER) Association of [...] tests). Lab Interpretation Abnormal (test code = 24082-7) [facility] 09:23:42 Test Item Value Reference Range Interpretation Comments MAGNESIUM (test code = 1316449573) 2.3 mg/dL 1.7-2.4 Lab Interpretation (test code = Normal 81810-8) [facility] 09:23:42 Test Item Value Reference Range Interpretation Comments PHOSPHORUS (test code = 5793312215) 3.5 mg/dL 2.5-5.0 Lab Interpretation (test code = Normal 45161-3) [facility] [id number] 09:15:04 Test Item Value Reference Range Interpretation [...] RDW-SD (test code = 46.4 fL 39.0-49.9 94157-1) RDW-CV (test code = 14.4 % 12.0-15.5 788-0) PLT (test code = See_Comment [Automated 777-3) message] The sy stem which generated this result transmitted reference range : 166 - 358 10*3/ ?L. The reference r josselyn was not used to interpret this result as normal/abnormal . MPV (test code = 8.9 fL 9.5-12.9 L 91434-4) NRBC/100 WBC (test See_Comment [Automat ed code = 3662152196) message] The system which generated this result transmitted reference range : 0.0 - 10.0 /100 WBCs. The refer ence range was not u sed to interpret th is result as normal/abnormal . NRBC x10^3 (test code <0.01 See_Comment [Auto mated = 4964037476) message] The s ystem which generated this result transmitted reference range : 10*3/?L. The reference range was not used to interpret this result as normal/abnormal . GRAN MAT (NEUT) % 71.1 % (test code = 770-8) IMM GRAN % (test code 0.30 % = 4730254537) LYMPH % (test code = 17.7 % 736-9) MONO % (test code = 7.2 % 5905-5) EOS % (test code = 2.6 % 713-8) BASO % (test code = 1.1 % 706-2) GRAN MAT x10^3(ANC) 4.43 10*3/uL 1.88-7.09 (test code = 8906688460) IMM GRAN x10^3 (test <0.03 0.00-0.06 code = 0800438263) LYMPH x10^3 (test code 1.10 10*3/uL 1.32-3.29 L = 731-0) MONO x10^3 (test code 0.45 10*3/uL 0.33-0.92 = 742-7) EOS x10^3 (test code = 0.16 10*3/uL 0.03-0.39 711-2) BASO x10^3 (test code 0.07 10*3/uL 0.01-0.07 = 704-7) Lab Interpretation Abnormal (test code = 15311-3) [facility] GLUCOSE (AUTOMATED)2022-01-05 05:12:00 Test Item Value Reference Range Interpretation Comments POCT GLU (test code = 3353945677) 178 mg/dL 70-110 H Lab Interpretation (test code = Abnormal 41096-9) [facility] GLUCOSE (AUTOMATED)2022-01-04 22:12:41 Test Item Value Reference Range Interpretation Comments POCT GLU (test code = 5698858554) 154 mg/dL 70-110 H Lab Interpretation (test code = Abnormal 41438-7) [facility] GLUCOSE (AUTOMATED)2022-01-04 17:15:55 Test Item Value Reference Range Interpretation Comments POCT GLU (test code = 9112010126) 204 mg/dL 70-110 H Lab Interpretation (test code = Abnormal 15282-9) [facility] [id number] 13:56:02 Test Item Value Reference Range Interpretation Comments SPUTUM CULTURE 1+ Respiratory iveth: (test code = 622-1) Commensal upper respiratory microorganisms only. Gram stain (test No Epithelial cells code = 664-3) JENNIFFER (test code = Bacterial pathogens JENNIFFER) associated with lower respiratory infections were not identified, which include Pseudomonas aeruginosa and Staphylococcus aureus (MRSA or MSSA). [facility] - Please draw trough at [id number] 11:47:19 Test Item Value Reference Range Interpretation Comments VANCO TROUGH (test code 11.3 ug/mL 10.0-20.0 = 3617589130) JENNIFFER (test code = JENNIFFER) Toxic Range: ?>20 ug/mL 15-20 ug/mL is recommended for severe infection or when Vancomycin TORITO is greater than or equal to 2. Lab Interpretation (test Normal code = 73786-2) [facility] 11:19:57 Test Item Value Reference Range Interpretation Comments POCT GLU (test code = 6645198832) 189 mg/dL 70-110 H Lab Interpretation (test code = Abnormal 98997-1) [facility] METABOLIC PANEL (NA, K, CL, CO2, GLUCOSE, BUN, CREATININE, CA)2022-01-04 11:17:16 Test Item Value Reference Range Interpretation Comments NA (test code = 140 mmol/L 135-145 4140894743) K (test code = 3.3 mmol/L 3.5-5.0 L 5955678514) CL (test code = 99 mmol/L 98-108 2649936702) CO2 TOTAL (test code = 35 mmol/L 23-31 H 2619355874) AGAP (test code = 2-16 0952886216) BUN (test code = 18 mg/dL 7-23 2091492490) GLUCOSE (test code = 172 mg/dL 70-110 H 9691863725) CREATININE (test code = 0.89 mg/dL 0.50-1.04 9794928765) CALCIUM (test code = 8.2 mg/dL 8.6-10.6 L 1797651519) eGFR (test code = mL/min/1.73m2 9320097168) JENNIFFER (test code = JENNIFFER) Association of [...] tests). Lab Interpretation Abnormal (test code = 48885-6) [facility] 11:17:16 Test Item Value Reference Range Interpretation Comments MAGNESIUM (test code = 2835362149) 2.3 mg/dL 1.7-2.4 Lab Interpretation (test code = Normal 67268-1) [facility] 11:17:16 Test Item Value Reference Range Interpretation Comments PHOSPHORUS (test code = 3354277659) 2.7 mg/dL 2.5-5.0 Lab Interpretation (test code = Normal 64806-7) [facility] [id number] 11:03:17 Test Item Value Reference Range Interpretation [...] RDW-SD (test code = 46.0 fL 39.0-49.9 89133-2) RDW-CV (test code = 14.4 % 12.0-15.5 788-0) PLT (test code = See_Comment [Automated 777-3) message] The sy stem which generated this result transmitted reference range : 166 - 358 10*3/ ?L. The reference r josselyn was not used to interpret this result as normal/abnormal . MPV (test code = 9.1 fL 9.5-12.9 L 21944-1) NRBC/100 WBC (test See_Comment [Automat ed code = 9275620428) message] The system which generated this result transmitted reference range : 0.0 - 10.0 /100 WBCs. The refer ence range was not u sed to interpret th is result as normal/abnormal . NRBC x10^3 (test code <0.01 See_Comment [Auto mated = 6991339686) message] The s ystem which generated this result transmitted reference range : 10*3/?L. The reference range was not used to interpret this result as normal/abnormal . GRAN MAT (NEUT) % 78.8 % (test code = 770-8) IMM GRAN % (test code 0.50 % = 5432392646) LYMPH % (test code = 11.8 % 736-9) MONO % (test code = 6.8 % 5905-5) EOS % (test code = 1.4 % 713-8) BASO % (test code = 0.7 % 706-2) GRAN MAT x10^3(ANC) 6.65 10*3/uL 1.88-7.09 (test code = 4468998331) IMM GRAN x10^3 (test 0.04 10*3/uL 0.00-0.06 code = 8187101098) LYMPH x10^3 (test code 1.00 10*3/uL 1.32-3.29 L = 731-0) MONO x10^3 (test code 0.57 10*3/uL 0.33-0.92 = 742-7) EOS x10^3 (test code = 0.12 10*3/uL 0.03-0.39 711-2) BASO x10^3 (test code 0.06 10*3/uL 0.01-0.07 = 704-7) Lab Interpretation Abnormal (test code = 48176-6) [facility] GLUCOSE (AUTOMATED)2022-01-04 06:29:40 Test Item Value Reference Range Interpretation Comments POCT GLU (test code = 5562821103) 211 mg/dL 70-110 H Lab Interpretation (test code = Abnormal 34264-9) [facility] GLUCOSE (AUTOMATED)2022-01-03 21:23:29 Test Item Value Reference Range Interpretation Comments POCT GLU (test code = 255 mg/dL 70-110 H Notifi ed Provider 2825103813) Lab Interpretation (test Abnormal code = 93625-1) [facility] GLUCOSE (AUTOMATED)2022-01-03 16:51:46 Test Item Value Reference Range Interpretation Comments POCT GLU (test code = 332 mg/dL 70-110 H Notifi ed Provider 1200132903) Lab Interpretation (test Abnormal code = 46607-2) [facility] GLUCOSE (AUTOMATED)2022-01-03 13:01:05 Test Item Value Reference Range Interpretation Comments POCT GLU (test code = 6761947170) 332 mg/dL 70-110 H Lab Interpretation (test code = Abnormal 76102-4) [facility] + Lactic [id number] 10:21:11 Test Item Value Reference Range Interpretation Comments PH (test code = 2) 7.35-7.45 PCO2 (test code = See_Comment H [Automate d 2656957203) message] The sy stem which generated this result transmitted reference range : 35 - 45 mmHg. The reference range was not used to interpret this result as normal/abnormal . PO2 (test code = See_Comment [Automated 5683065069) message] The sy stem which generated this result transmitted reference range : 80 - 100 mmHg. The reference range was not used to interpret this result as normal/abnormal . HCO3 (test code = See_Comment H [Automate d 4114852822) message] The sy stem which generated this result transmitted reference range : 22 - 26 mEq/L. The reference range was not used to interpret this result as normal/abnormal . BE (test code = See_Comment H [Automated 2757389516) message] The sy stem which generated this result transmitted reference range : -3.0 - 3.0 mEq/ L. The reference r josselyn was not used to interpret this result as normal/abnormal . THB (test code = 10.1 g/dL 12.0-16.0 L 6422488057) %O2HB (test code = 95.5 % 94.0-99.0 5835670510) %COHB ART (test code = 0.3 % 0.0-1.5 1649327413) %METHB ART (test code = 0.1 % 0.4-1.5 L 0602716470) VOL%O2 ART (test code = 13.7 % 15.0-23.0 L 6336974167) NA (test code = 138 mmol/L 135-145 8433177562) K+ (test code = 4.1 mmol/L 3.5-5.0 5661920721) AC CA IONZ (test code = 4.50 mg/dL 4.50-5.30 4220202439) GLUCOSE (test code = 325 mg/dL 70-110 H 0345227247) LACTIC ACID (test code 1.27 mmol/L 0.50-2.20 = 8847334648) Lab Interpretation Abnormal (test code = 41502-7) [facility] 10:18:30 Test Item Value Reference Range Interpretation Comments POCT GLU (test code = 7977032625) 338 mg/dL 70-110 H Lab Interpretation (test code = Abnormal 83109-8) [facility] METABOLIC PANEL (NA, K, CL, CO2, GLUCOSE, BUN, CREATININE, CA)2022-01-03 09:15:37 Test Item Value Reference Range Interpretation Comments NA (test code = 141 mmol/L 135-145 0626656358) K (test code = 4.3 mmol/L 3.5-5.0 3831593365) CL (test code = 103 mmol/L 98-108 3377737160) CO2 TOTAL (test code = 34 mmol/L 23-31 H 6019194904) AGAP (test code = 2-16 3623173170) BUN (test code = 19 mg/dL 7-23 4412945569) GLUCOSE (test code = 295 mg/dL 70-110 H 1789498163) CREATININE (test code = 0.80 mg/dL 0.50-1.04 3436033668) CALCIUM (test code = 7.9 mg/dL 8.6-10.6 L 0918939189) eGFR (test code = mL/min/1.73m2 3452375444) JENNIFFER (test code = JENNIFFER) Association of [...] tests). Lab Interpretation Abnormal (test code = 75792-7) [facility] 09:15:12 Test Item Value Reference Range Interpretation Comments MAGNESIUM (test code = 5288946143) 2.3 mg/dL 1.7-2.4 Lab Interpretation (test code = Normal 16809-0) [facility] WITH [id number] 09:02:53 Test Item Value Reference Range Interpretation [...] RDW-SD (test code = 46.8 fL 39.0-49.9 60672-0) RDW-CV (test code = 14.3 % 12.0-15.5 788-0) PLT (test code = See_Comment [Automated 777-3) message] The sy stem which generated this result transmitted reference range : 166 - 358 10*3/ ?L. The reference r josselyn was not used to interpret this result as normal/abnormal . MPV (test code = 9.1 fL 9.5-12.9 L 85733-9) NRBC/100 WBC (test See_Comment [Automat ed code = 7296155345) message] The system which generated this result transmitted reference range : 0.0 - 10.0 /100 WBCs. The refer ence range was not u sed to interpret th is result as normal/abnormal . NRBC x10^3 (test code <0.01 See_Comment [Auto mated = 2211928861) message] The s ystem which generated this result transmitted reference range : 10*3/?L. The reference range was not used to interpret this result as normal/abnormal . GRAN MAT (NEUT) % 86.9 % (test code = 770-8) IMM GRAN % (test code 0.50 % = 1472846964) LYMPH % (test code = 6.5 % 736-9) MONO % (test code = 5.2 % 5905-5) EOS % (test code = 0.6 % 713-8) BASO % (test code = 0.3 % 706-2) GRAN MAT x10^3(ANC) 8.30 10*3/uL 1.88-7.09 H (test code = 9728815091) IMM GRAN x10^3 (test 0.05 10*3/uL 0.00-0.06 code = 1194835708) LYMPH x10^3 (test code 0.62 10*3/uL 1.32-3.29 L = 731-0) MONO x10^3 (test code 0.50 10*3/uL 0.33-0.92 = 742-7) EOS x10^3 (test code = 0.06 10*3/uL 0.03-0.39 711-2) BASO x10^3 (test code 0.03 10*3/uL 0.01-0.07 = 704-7) Lab Interpretation Abnormal (test code = 19977-2) [facility] GLUCOSE (AUTOMATED)2022-01-03 04:48:55 Test Item Value Reference Range Interpretation Comments POCT GLU (test code = 8591163278) 258 mg/dL 70-110 H Lab Interpretation (test code = Abnormal 33387-1) [facility] GLUCOSE (AUTOMATED)2022-01-02 22:17:43 Test Item Value Reference Range Interpretation Comments POCT GLU (test code = 274 mg/dL 70-110 H Notifi ed Provider [id number]) Lab Interpretation (test Abnormal code = 37657-6) [facility] GLUCOSE (AUTOMATED)2022-01-02 16:29:06 Test Item Value Reference Range Interpretation Comments POCT GLU (test code = 321 mg/dL 70-110 H Notifi ed Provider [id number]) Lab Interpretation (test Abnormal code = 78755-4) [facility] 15:12:15 Test Item Value Reference Range Interpretation Comments HGB A1C (test code = 10.4 % 4.0-5.7 H 4548-4) JENNIFFER (test code = JENNIFFER) Reference RangesNormal: <5.7%Prediabetes: 5.7 - 6.4%Diabetes: > 6.5% Lab Interpretation (test Abnormal code = 64689-3) [facility] Lactic [id number] 12:41:39 Test Item Value Reference Range Interpretation Comments PH (test code = 2) 7.35-7.45 L PCO2 (test code = See_Comment H [Automate d 3886519592) message] The sy stem which generated this result transmitted reference range : 35 - 45 mmHg. The reference range was not used to interpret this result as normal/abnormal . PO2 (test code = See_Comment H [Automated 1752802863) message] The sy stem which generated this result transmitted reference range : 80 - 100 mmHg. The reference range was not used to interpret this result as normal/abnormal . HCO3 (test code = See_Comment [Automate d 0457797366) message] The sy stem which generated this result transmitted reference range : 22 - 26 mEq/L. The reference range was not used to interpret this result as normal/abnormal . BE (test code = See_Comment [Automated 2213405340) message] The sy stem which generated this result transmitted reference range : -3.0 - 3.0 mEq/ L. The reference r josselyn was not used to interpret this result as normal/abnormal . THB (test code = 10.0 g/dL 12.0-16.0 L 3625390126) %O2HB (test code = 97.7 % 94.0-99.0 4735354432) %COHB ART (test code = 0.3 % 0.0-1.5 8543938533) %METHB ART (test code = 0.2 % 0.4-1.5 L 0589705444) VOL%O2 ART (test code = 14.0 % 15.0-23.0 L 4457986428) NA (test code = 137 mmol/L 135-145 4435234791) K+ (test code = 5.2 mmol/L 3.5-5.0 H 8805942388) AC CA IONZ (test code = 4.60 mg/dL 4.50-5.30 0692039433) GLUCOSE (test code = 306 mg/dL 70-110 H 5497074878) LACTIC ACID (test code 0.77 mmol/L 0.50-2.20 = 5108554358) Lab Interpretation Abnormal (test code = 75812-0) [facility] 12:28:29 Test Item Value Reference Range Interpretation Comments POCT GLU (test code = 362 mg/dL 70-110 H Notifi ed Provider [id number]) Lab Interpretation (test Abnormal code = 88255-2) [facility] Metabolic Panel (NA, K, CL, CO2, Glucose, BUN, Creatinine, CA)2022-01-02 11:02:42 Test Item Value Reference Range Interpretation Comments NA (test code = 138 mmol/L 135-145 7358453306) K (test code = 5.3 mmol/L 3.5-5.0 H 1879928875) CL (test code = 102 mmol/L 98-108 7292244007) CO2 TOTAL (test code = 29 mmol/L 23-31 5211725756) AGAP (test code = 2-16 4213704676) BUN (test code = 17 mg/dL 7-23 6165403535) GLUCOSE (test code = 343 mg/dL 70-110 H 8592742815) CREATININE (test code = 0.81 mg/dL 0.50-1.04 5491854205) CALCIUM (test code = 8.1 mg/dL 8.6-10.6 L 0543340467) eGFR (test code = mL/min/1.73m2 0803849234) JENNIFFER (test code = JENNIFFER) Association of [...] tests). Lab Interpretation Abnormal (test code = 54086-3) [facility] with Lohftxhxxbvu4704-42-41 10:52:23 Test Item Value Reference Range Interpretation Comments WBC (test code = See_Comment H [Automated 8803-2) message] The system which generated this result transmit alden reference range : 4.30 - 11.10 10*3/?L. The reference range was not used to interpret this result as normal/abnormal . RBC (test code = See_Comment L [Automated 389-8) message] The system which generated this result [...] RDW-SD (test code = 49.3 fL 39.0-49.9 42141-8) RDW-CV (test code = 14.7 % 12.0-15.5 788-0) PLT (test code = See_Comment [Automated 777-3) message] The system which generated this result transmit alden reference range : 166 - 358 10*3/ ?L. The reference range was not u sed to interpret th is result as normal/abnormal . MPV (test code = 9.8 fL 9.5-12.9 83926-7) NRBC/100 WBC (test See_Comment [Automat ed code = 9655882693) message] The system which generated this result transmit alden reference range : 0.0 - 10.0 /100 WBCs. The reference range was not used to interpret this result as normal/abnormal . NRBC x10^3 (test code <0.01 See_Comment [Auto mated = 6238783637) message] The system which generated this result transmit alden reference range : 10*3/?L. The reference range was not used to interpret this result as normal/abnormal . GRAN MAT (NEUT) % 90.3 % (test code = 770-8) IMM GRAN % (test code 1.00 % = 0720961054) LYMPH % (test code = 4.0 % 736-9) MONO % (test code = 4.0 % 5905-5) EOS % (test code = 0.3 % 713-8) BASO % (test code = 0.4 % 706-2) GRAN MAT x10^3(ANC) 13.28 10*3/uL 1.88-7.09 H (test code = 6493655912) IMM GRAN x10^3 (test 0.15 10*3/uL 0.00-0.06 H code = 9071472921) LYMPH x10^3 (test code 0.59 10*3/uL 1.32-3.29 L = 731-0) MONO x10^3 (test code 0.59 10*3/uL 0.33-0.92 = 742-7) EOS x10^3 (test code = 0.04 10*3/uL 0.03-0.39 711-2) BASO x10^3 (test code 0.06 10*3/uL 0.01-0.07 = 704-7) Lab Interpretation Abnormal (test code = 37780-0) [facility]CA2+[facility]-02 10:20:11 Test Item Value Reference Range Interpretation Comments PH (test code = 2) 7.35-7.45 LL PCO2 (test code = See_Comment H [Automate d message] 1133789124) The system [employer] generated this result transmit alden reference range : 35 - 45 mmHg. The reference range was not used to interpret this result as normal/abnormal . PO2 (test code = See_Comment H [Automated message] 4585212647) The system [employer] generated this result transmit alden reference range : 80 - 100 mmHg. The reference range was not used to interpret this result as normal/abnormal . HCO3 (test code = See_Comment [Automate d message] 8809250605) The system [employer] generated this result transmit alden reference range : 22 - 26 mEq/L. The reference range was not used to interpret this result as normal/abnormal . BE (test code = See_Comment L [Automated message] 2128361723) The system [employer] generated this result transmit alden reference range : -3.0 - 3.0 mEq/ L. The reference r josselyn was not used to interpret this result as normal/abnormal . THB (test code = 10.9 g/dL 12.0-16.0 L 0356096901) %O2HB (test code = 97.4 % 94.0-99.0 7284188276) %COHB ART (test code = 0.3 % 0.0-1.5 2095016472) %METHB ART (test code = 0.1 % 0.4-1.5 L 3072927636) VOL%O2 ART (test code = 15.1 % 15.0-23.0 5721598124) NA (test code = 136 mmol/L 135-145 9263153300) K+ (test code = 5.5 mmol/L 3.5-5.0 H 4641150962) AC CA IONZ (test code = 4.70 mg/dL 4.50-5.30 0895269832) GLUCOSE (test code = 348 mg/dL 70-110 H 5681081282) Lab Interpretation Abnormal (test code = 20996-3) [facility] [id number] 03:01:55 Test Item Value Reference Interpretation Comments Range TROPONIN I (test 0.001 ng/mL See_Comment [Automated code = 3219083606) message] The system which generated this result [...] biotin. Lab Interpretation Normal (test code = 28066-7) [facility] EBY-AQT7758-04-10 02:58:58 Test Item Value Reference Range Interpretation Comments NT-proBNP (test code 183 pg/mL See_Comment H [Autom ated = 9517373838) message] The system which generated this result transmitted reference range : <=125. The reference range was not used to interpret this result as normal/abnormal . JENNIFFER (test code = JENNIFFER) Biotin has been reported to cause a negative bias, interpret results relative to patient's use of biotin. Lab Interpretation Abnormal (test code = 66629-3) [facility] (36944)2022-01-02 02:50:56 Test Item Value Reference Range Interpretation Comments NA (test code = 137 mmol/L 135-145 3596742641) K (test code = 4.6 mmol/L 3.5-5.0 9277707841) CL (test code = 103 mmol/L 98-108 4314432484) CO2 TOTAL (test code = 26 mmol/L 23-31 5429039180) AGAP (test code = 2-16 7304810735) BUN (test code = 20 mg/dL 7-23 1792528814) GLUCOSE (test code = 310 mg/dL 70-110 H 2615353122) CREATININE (test code = 1.14 mg/dL 0.50-1.04 H 0847372320) TOTAL BILI (test code = 0.3 mg/dL 0.1-1.0 5157669137) CALCIUM (test code = 8.1 mg/dL 8.6-10.6 L 7283105398) T PROTEIN (test code = 6.6 g/dL 6.3-8.2 1830399571) ALBUMIN (test code = 3.8 g/dL 3.5-5.0 6523068956) ALK PHOS (test code = 143 U/L 34-122 H 8844440217) ALTv (test code = 46 U/L 5-35 H 1742-6) AST(SGOT) (test code = 81 U/L 13-40 H 4756707974) eGFR (test code = mL/min/1.73m2 1264804619) JENNIFFER (test code = JENNIFFER) Association of [...] tests). Lab Interpretation Abnormal (test code = 12952-9) [facility] WITH [id number] 02:39:55 Test Item Value Reference Range Interpretation Comments WBC (test code = See_Comment H [Automated 7290-2) message] The system which generated this result [...] RDW-SD (test code = 49.2 fL 39.0-49.9 62089-1) RDW-CV (test code = 14.8 % 12.0-15.5 788-0) PLT (test code = See_Comment [Automated 777-3) message] The system which generated this result transmit alden reference range : 166 - 358 10*3/ ?L. The reference range was not u sed to interpret th is result as normal/abnormal . MPV (test code = 10.0 fL 9.5-12.9 12729-5) NRBC/100 WBC (test See_Comment [Automat ed code = 9209482610) message] The system which generated this result transmit alden reference range : 0.0 - 10.0 /100 WBCs. The reference range was not used to interpret this result as normal/abnormal . NRBC x10^3 (test code <0.01 See_Comment [Auto mated = 5559025369) message] The system which generated this result transmit alden reference range : 10*3/?L. The reference range was not used to interpret this result as normal/abnormal . GRAN MAT (NEUT) % 85.4 % (test code = 770-8) IMM GRAN % (test code 0.60 % = 7262657680) LYMPH % (test code = 6.4 % 736-9) MONO % (test code = 5.5 % 5905-5) EOS % (test code = 1.6 % 713-8) BASO % (test code = 0.5 % 706-2) GRAN MAT x10^3(ANC) 10.20 10*3/uL 1.88-7.09 H (test code = 2105885971) IMM GRAN x10^3 (test 0.07 10*3/uL 0.00-0.06 H code = 6917789507) LYMPH x10^3 (test code 0.76 10*3/uL 1.32-3.29 L = 731-0) MONO x10^3 (test code 0.66 10*3/uL 0.33-0.92 = 742-7) EOS x10^3 (test code = 0.19 10*3/uL 0.03-0.39 711-2) BASO x10^3 (test code 0.06 10*3/uL 0.01-0.07 = 704-7) Lab Interpretation Abnormal (test code = 32843-0) [id number]10 Test Item Value Reference Interpretation Comments Range TROPONIN I (test 0.001 ng/mL See_Comment [Automated code = 4021261648) message] The system which generated this result [...] biotin. Lab Interpretation Normal (test code = 92408-5) [facility] MOA-[id number] 04:53:49 Test Item Value Reference Range Interpretation Comments NT-proBNP (test code 79 pg/mL See_Comment [Autom ated = 6344075761) message] The system which generated this result transmitted reference range : <=125. The reference range was not used to interpret this result as normal/abnormal . JENNIFFER (test code = JENNIFFER) Biotin has been reported to cause a negative bias, interpret results relative to patient's use of biotin. Lab Interpretation Normal (test code = 47169-0) [facility] (82021)2021-12-09 04:46:26 Test Item Value Reference Range Interpretation Comments NA (test code = 138 mmol/L 135-145 2701162275) K (test code = 4.4 mmol/L 3.5-5.0 3576459538) CL (test code = 95 mmol/L 98-108 L 5122187521) CO2 TOTAL (test code = 35 mmol/L 23-31 H 1976765906) AGAP (test code = 2-16 8981787323) BUN (test code = 16 mg/dL 7-23 0549038251) GLUCOSE (test code = 276 mg/dL 70-110 H 2184419696) CREATININE (test code = 0.89 mg/dL 0.50-1.04 4107434479) TOTAL BILI (test code = 0.5 mg/dL 0.1-1.4 4627338810) CALCIUM (test code = 9.1 mg/dL 8.6-10.6 2432707866) T PROTEIN (test code = 7.0 g/dL 6.3-8.2 5126352102) ALBUMIN (test code = 4.2 g/dL 3.5-5.0 3431380398) ALK PHOS (test code = 141 U/L 34-122 H 1243210759) ALTv (test code = 65 U/L 5-35 H 1742-6) AST(SGOT) (test code = 81 U/L 13-40 H 2900251606) eGFR (test code = mL/min/1.73m2 7487990128) JENNIFFER (test code = JENNIFFER) Association of [...] tests). Lab Interpretation Abnormal (test code = 91577-5) [facility] 04:46:26 Test Item Value Reference Range Interpretation Comments LIPASE (test code = 3271670513) 82 U/L 0-220 Lab Interpretation (test code = Normal 68796-6) [facility] Center[facility] WITH [id number] 04:27:44 Test Item Value Reference Range Interpretation [...] RDW-SD (test code = 46.9 fL 39.0-49.9 74255-4) RDW-CV (test code = 14.2 % 12.0-15.5 788-0) PLT (test code = See_Comment [Automated 777-3) message] The sy stem which generated this result transmitted reference range : 166 - 358 10*3/ ?L. The reference r josselyn was not used to interpret this result as normal/abnormal . MPV (test code = 9.0 fL 9.5-12.9 L 02455-9) NRBC/100 WBC (test See_Comment [Automat ed code = 2911984667) message] The system which generated this result transmitted reference range : 0.0 - 10.0 /100 WBCs. The refer ence range was not u sed to interpret th is result as normal/abnormal . NRBC x10^3 (test code <0.01 See_Comment [Auto mated = 1159164640) message] The s ystem which generated this result transmitted reference range : 10*3/?L. The reference range was not used to interpret this result as normal/abnormal . GRAN MAT (NEUT) % 79.4 % (test code = 770-8) IMM GRAN % (test code 0.60 % = 4081050598) LYMPH % (test code = 10.9 % 736-9) MONO % (test code = 5.7 % 5905-5) EOS % (test code = 2.7 % 713-8) BASO % (test code = 0.7 % 706-2) GRAN MAT x10^3(ANC) 7.19 10*3/uL 1.88-7.09 H (test code = 4129401454) IMM GRAN x10^3 (test 0.05 10*3/uL 0.00-0.06 code = 3411002600) LYMPH x10^3 (test code 0.99 10*3/uL 1.32-3.29 L = 731-0) MONO x10^3 (test code 0.52 10*3/uL 0.33-0.92 = 742-7) EOS x10^3 (test code = 0.24 10*3/uL 0.03-0.39 711-2) BASO x10^3 (test code 0.06 10*3/uL 0.01-0.07 = 704-7) Lab Interpretation Abnormal (test code = 84270-4) [facility] GLUCOSE (AUTOMATED)2021-09-23 17:25:54 Test Item Value Reference Range Interpretation Comments POCT GLU (test code = 4837695459) 234 mg/dL 70-110 H Lab Interpretation (test code = Abnormal 83065-7) [facility] GLUCOSE (AUTOMATED)2021-09-23 13:58:43 Test Item Value Reference Range Interpretation Comments POCT GLU (test code = 7789393406) 202 mg/dL 70-110 H Lab Interpretation (test code = Abnormal 13434-9) [facility] METABOLIC PANEL (NA, K, CL, CO2, GLUCOSE, BUN, CREATININE, CA)2021-09-23 11:51:27 Test Item Value Reference Range Interpretation Comments NA (test code = 139 mmol/L 135-145 6529976384) K (test code = 3.9 mmol/L 3.5-5.0 2460333945) CL (test code = 93 mmol/L 98-108 L 2776127674) CO2 TOTAL (test code = 40 mmol/L 23-31 H 1308717373) AGAP (test code = 2-16 7000216591) BUN (test code = 26 mg/dL 7-23 H 1255512775) GLUCOSE (test code = 223 mg/dL 70-110 H 9209309530) CREATININE (test code = 0.96 mg/dL 0.50-1.04 7532173057) CALCIUM (test code = 9.2 mg/dL 8.6-10.6 4220783007) eGFR (test code = mL/min/1.73m2 2720280018) JENNIFFER (test code = JENNIFFER) Association of [...] tests). Lab Interpretation Abnormal (test code = 74170-0) [facility] WITHOUT [id number] 10:53:54 Test Item Value Reference Range Interpretation Comments WBC (test code = 6690-2) See_Comment H [A utomated message] The system [employer] generated this result transmit alden reference range : 4.30 - 11.10 10*3/?L. The reference range was not used to interpret this result as normal/abnormal . RBC (test code = 789-8) See_Comment L [Au tomated message] The system [employer] generated this result transmit alden reference range [...] 777-3) See_Comment [Au tomated message] The system [employer] generated this result transmit alden reference range : 166 - 358 10*3/?L. The reference range was not used to interpret this result as normal/abnormal . MPV (test code = 9.2 fL 9.5-12.9 L 52650-1) RDW-CV (test code = 13.5 % 12.0-15.5 788-0) RDW-SD (test code = 44.3 fL 39.0-49.9 81404-7) NRBC x10^3 (test code = <0.01 See_Comment [Au tomated message] 0772040399) The system [employer] generated this result transmit alden reference range : 10*3/?L. The reference range was not used to interpret this result as normal/abnormal . NRBC/100 WBC (test code See_Comment [Au tomated message] = 7252300040) The system [facility] generated this result transmit alden reference range : 0.0 - 10.0 /100 WBC s. The reference r josselyn was not used to interpret this result as normal/abnormal . IPF % (test code = 5659899482) Lab Interpretation (test Abnormal code = 49425-7) [facility] GLUCOSE (AUTOMATED)2021-09-23 10:17:17 Test Item Value Reference Range Interpretation Comments POCT GLU (test code = 9569464666) 217 mg/dL 70-110 H Lab Interpretation (test code = Abnormal 52158-0) [facility] GLUCOSE (AUTOMATED)2021-09-23 05:44:27 Test Item Value Reference Range Interpretation Comments POCT GLU (test code = 6415956533) 338 mg/dL 70-110 H Lab Interpretation (test code = Abnormal 07515-3) [facility] GLUCOSE (AUTOMATED)2021-09-23 02:18:55 Test Item Value Reference Range Interpretation Comments POCT GLU (test code = 4768882365) 365 mg/dL 70-110 H Lab Interpretation (test code = Abnormal 13717-5) [facility]-23 00:11:44 Test Item Value Reference Range Interpretation Comments LVOT stroke volume (test 68.50 cm3 code = 0009898314) EF(Teich) (test code = 68.30 % 5498913876) LVIDD (test code = 4.00 cm 3406424228) LVIDS (test code = 2.49 cm 6072797221) IVS (test code = 1.07 cm 2353942076) LVPWD (test code = 1.08 cm 7682907420) LVOT diameter (test code 1.92 cm = 3626235659) FS (test code = 38 % 4055534006) MV Peak E Marva (test code 83.4 cm/s = 8039944559) MV Peak A Marva (test code 136.1 cm/s = 2435876995) E/A ratio (test code = ratio 3800530243) E wave decelartion time 0.16 s (test code = 1396340404) MV E/e' septal (test 7.1 cm/s code = 2961678089) LA Volume Index (BP) 21.8 mL/m2 (test code = 5649880511) LA volume (BP) (test 43.7 mL code = 3873138291) LVOT peak marva (test code 137.5 cm/s = 9129872275) LVOT mn grad (test code mmHg = 9673121683) LA size (test code = 3.9 cm 4702149758) LAV(MOD-sp2) (test code 43.50 mL = 0800160439) LAV(MOD-sp4) (test code 42.50 mL = 5390997869) Tapse (test code = 1.88 cm 0343980478) AV LVOT peak gradient mmHg (test code = 4429596407) LVOT peak VTI (test code 23.5 cm = 0509593969) LV V1 mean (test code = 92.90 cm/s 9562500059) MV Prop V (test code = 46.60 cm/s 1992572918) Ao root annulus (test 3.1 cm code = 0816849954) Ao root diam (test code 3.10 cm = 8811209239) Aortic root (test code = 3.1 cm 2492855736) PW (test code = 1.08 cm 0.6-1.1 3184557372) EF - 2D (test code = 68.30 % 92645742) Interventricular Septum 1.07 cm Diastolic Thickness by 2D (test code = 6390533) Radiology Study observation (narrative) (test code = 97748-1) JENNIFFER (test code = JENNIFFER) ?Left?Ventricle: Normal [...] (104.3 kg) 2.12 sq meters 118/66 96 [facility] GLUCOSE (AUTOMATED)2021-09-22 22:23:31 Test Item Value Reference Range Interpretation Comments POCT GLU (test code = 5516934130) 389 mg/dL 70-110 H Lab Interpretation (test code = Abnormal 61028-1) [facility]UTUM [id number] 21:48:25 Test Item Value Reference Range Interpretation Comments SPUTUM CULTURE (test Specimen cellular code = 622-1) elements do not represent lower respiratory tract. Specimen rejected for routine bacterial culture. Suggest reorder and recollection. [facility] GLUCOSE (AUTOMATED)2021-09-22 20:03:02 Test Item Value Reference Range Interpretation Comments POCT GLU (test code = 8724073421) 365 mg/dL 70-110 H Lab Interpretation (test code = Abnormal 59546-7) [facility] GLUCOSE (AUTOMATED)2021-09-22 18:09:08 Test Item Value Reference Range Interpretation Comments POCT GLU (test code = 7981353244) 361 mg/dL 70-110 H Lab Interpretation (test code = Abnormal 40809-8) [facility] GLUCOSE (AUTOMATED)2021-09-22 13:24:25 Test Item Value Reference Range Interpretation Comments POCT GLU (test code = 4706552450) 394 mg/dL 70-110 H Lab Interpretation (test code = Abnormal 38373-4) [facility] + LACTIC [id number] 13:21:48 Test Item Value Reference Range Interpretation Comments PH (test code = 2) 7.35-7.45 PCO2 (test code = See_Comment H [Automate d 5167344591) message] The sy stem which generated this result transmitted reference range : 35 - 45 mmHg. The reference range was not used to interpret this result as normal/abnormal . PO2 (test code = See_Comment L [Automated 4793053552) message] The sy stem which generated this result transmitted reference range : 80 - 100 mmHg. The reference range was not used to interpret this result as normal/abnormal . HCO3 (test code = See_Comment H [Automate d 3600767146) message] The sy stem which generated this result transmitted reference range : 22 - 26 mEq/L. The reference range was not used to interpret this result as normal/abnormal . BE (test code = See_Comment H [Automated 5125181145) message] The sy stem which generated this result transmitted reference range : -3.0 - 3.0 mEq/ L. The reference r josselyn was not used to interpret this result as normal/abnormal . THB (test code = 11.0 g/dL 12.0-16.0 L 8320366349) %O2HB (test code = 92.4 % 94.0-99.0 L 0488127966) %COHB ART (test code = 0.3 % 0.0-1.5 8822383734) %METHB ART (test code = 0.3 % 0.4-1.5 L 9180116609) VOL%O2 ART (test code = 14.3 % 15.0-23.0 L 0941882501) NA (test code = 138 mmol/L 135-145 2319053467) K+ (test code = 4.7 mmol/L 3.5-5.0 1789398521) AC CA IONZ (test code = 4.70 mg/dL 4.50-5.30 [id number]) GLUCOSE (test code = 401 mg/dL 70-110 H [id number]) LACTIC ACID (test code 1.76 mmol/L 0.50-2.20 = [id number]) Lab Interpretation Abnormal (test code = 25728-9) [facility] Metabolic Panel (NA, K, CL, CO2, Glucose, BUN, Creatinine, CA)2021-09-22 13:08:40 Test Item Value Reference Range Interpretation Comments NA (test code = 139 mmol/L 135-145 4814143392) K (test code = 4.9 mmol/L 3.5-5.0 3148280186) CL (test code = 93 mmol/L 98-108 L 0154021054) CO2 TOTAL (test code = 38 mmol/L 23-31 H 1167164252) AGAP (test code = 2-16 3169349997) BUN (test code = 19 mg/dL 7-23 4067768017) GLUCOSE (test code = 393 mg/dL 70-110 H 5160546416) CREATININE (test code = 0.89 mg/dL 0.50-1.04 0267914831) CALCIUM (test code = 8.9 mg/dL 8.6-10.6 8505011956) eGFR (test code = mL/min/1.73m2 7575034037) JENNIFFER (test code = JENNIFFER) Association of [...] tests). Lab Interpretation Abnormal (test code = 86394-6) [facility] [id number] 13:00:02 Test Item Value Reference Range Interpretation Comments MAGNESIUM (test code = 1417788461) 2.1 mg/dL 1.7-2.4 Lab Interpretation (test code = Normal 66427-8) [facility] [id number] 13:00:02 Test Item Value Reference Range Interpretation Comments PHOSPHORUS (test code = 2649468226) 3.3 mg/dL 2.5-5.0 Lab Interpretation (test code = Normal 78052-2) [facility] CenterHep[facility] Function Panel (ALB, T.PRO, BILI T, BU/BC, ALT, AST, ALK, PHOS)2021-09-22 13:00:02 Test Item Value Reference Range Interpretation Comments TOTAL BILI (test code = 2530307906) 0.7 mg/dL 0.1-1.1 BILI UNCON (test code = 5335604071) 0.1 mg/dL 0.1-1.1 BILI CONJ (test code = 9966496564) 0.0 mg/dL 0.0-0.3 T PROTEIN (test code = 8295144885) 8.1 g/dL 6.3-8.2 ALBUMIN (test code = 4060056669) 4.2 g/dL 3.5-5.0 ALK PHOS (test code = 6704354617) 145 U/L 34-122 H ALTv (test code = 1742-6) 34 U/L 5-35 AST(SGOT) (test code = 6434758724) 46 U/L 13-40 H Lab Interpretation (test code = Abnormal 73836-7) [facility] CenterProthrombin Time / [id number] 12:42:02 Test Item Value Reference Range Interpretation Comments PROTIME PATIENT (test See_Comment [Auto mated message] code = 5964-2) The system [employer] ich generated this result transmitted ref erence range: 10.1 - 1 2.6 Seconds. The re ference range was not u sed to interpret this result as normal/abnor mal. INR (test code = 6301-6) Nor mal INR <1.1; Warfarin Therap eutic range 2.0 to 3. 0 or 2.5 to 3.5, dep ending upon the indica tions. Lab Interpretation (test Normal code = 12983-4) [facility] with [id number] 12:35:41 Test Item Value Reference Range Interpretation Comments WBC (test code = See_Comment [Automated 6690-2) message] The sy stem which generated this result transmitted reference range : 4.30 - 11.10 10*3/?L. The reference range was not used to interpret this result as normal/abnormal . RBC (test code = See_Comment L [Automated 719-8) message] The sy stem which generated this [...] RDW-SD (test code = 45.0 fL 39.0-49.9 51626-9) RDW-CV (test code = 13.7 % 12.0-15.5 788-0) PLT (test code = See_Comment [Automated 777-3) message] The sy stem which generated this result transmitted reference range : 166 - 358 10*3/ ?L. The reference r josselyn was not used to interpret this result as normal/abnormal . MPV (test code = 9.0 fL 9.5-12.9 L 26468-1) NRBC/100 WBC (test See_Comment [Automat ed code = 5538380489) message] The system which generated this result transmitted reference range : 0.0 - 10.0 /100 WBCs. The refer ence range was not u sed to interpret th is result as normal/abnormal . NRBC x10^3 (test code <0.01 See_Comment [Auto mated = 7676638533) message] The s ystem which generated this result transmitted reference range : 10*3/?L. The reference range was not used to interpret this result as normal/abnormal . GRAN MAT (NEUT) % 93.7 % (test code = 770-8) IMM GRAN % (test code 0.90 % = 6802097996) LYMPH % (test code = 3.2 % 736-9) MONO % (test code = 1.1 % 5905-5) EOS % (test code = 0.5 % 713-8) BASO % (test code = 0.6 % 706-2) GRAN MAT x10^3(ANC) 9.27 10*3/uL 1.88-7.09 H (test code = 2239602081) IMM GRAN x10^3 (test 0.09 10*3/uL 0.00-0.06 H code = 3379697517) LYMPH x10^3 (test code 0.32 10*3/uL 1.32-3.29 L = 731-0) MONO x10^3 (test code 0.11 10*3/uL 0.33-0.92 L = 742-7) EOS x10^3 (test code = 0.05 10*3/uL 0.03-0.39 711-2) BASO x10^3 (test code 0.06 10*3/uL 0.01-0.07 = 704-7) Lab Interpretation Abnormal (test code = 02237-7) [facility] CenterGLYCOSYLATED HEMOGLOBIN (A1C)2021-09-22 12:16:03 Test Item Value Reference Range Interpretation Comments HGB A1C (test code = 6.4 % 4.0-5.7 H 4548-4) JENNIFFER (test code = JENNIFFER) Reference RangesNormal: <5.7%Prediabetes: 5.7 - 6.4%Diabetes: > 6.5% Lab Interpretation (test Abnormal code = 92401-3) [facility] CenterTROPONIN [id number] 07:25:36 Test Item Value Reference Interpretation Comments Range TROPONIN I (test <0.012 See_Comment [Automated code = 5017605695) message] The system which generated this result [...] biotin. Lab Interpretation Normal (test code = 26973-8) [facility] CenterN-TERMINAL [id number] 07:21:56 Test Item Value Reference Range Interpretation Comments NT-proBNP (test code 127 pg/mL See_Comment H [Autom ated = 9822892820) message] The system which generated this result transmitted reference range : <=125. The reference range was not used to interpret this result as normal/abnormal . JENNIFFER (test code = JENNIFFER) Biotin has been reported to cause a negative bias, interpret results relative to patient's use of biotin. Lab Interpretation Abnormal (test code = 62051-6) [facility]. METABOLIC PANEL (24650)2021-09-22 07:01:13 Test Item Value Reference Range Interpretation Comments NA (test code = 137 mmol/L 135-145 1064416784) K (test code = 4.9 mmol/L 3.5-5.0 5427835038) CL (test code = 96 mmol/L 98-108 L 3456699223) CO2 TOTAL (test code = 36 mmol/L 23-31 H 2429196622) AGAP (test code = 2-16 5123217665) BUN (test code = 18 mg/dL 7-23 6995458606) GLUCOSE (test code = 298 mg/dL 70-110 H 8854665657) CREATININE (test code = 0.73 mg/dL 0.50-1.04 5136293480) TOTAL BILI (test code = 0.6 mg/dL 0.1-1.7 0827379034) CALCIUM (test code = 8.5 mg/dL 8.6-10.6 L 9435287983) T PROTEIN (test code = 7.1 g/dL 6.3-8.2 6946595821) ALBUMIN (test code = 4.0 g/dL 3.5-5.0 4521638941) ALK PHOS (test code = 132 U/L 34-122 H 7144600977) ALTv (test code = 31 U/L 5-35 1742-6) AST(SGOT) (test code = 51 U/L 13-40 H 9776445349) eGFR (test code = mL/min/1.73m2 6538283355) JENNIFFER (test code = JENNIFFER) Association of [...] tests). Lab Interpretation Abnormal (test code = 51571-4) [facility] CenterACTIVATED PARTIAL THRMPLAS [id number] 06:54:12 Test Item Value Reference Range Interpretation Comments APTT Patient (test See_Comment [Automat ed code = 3173-2) message] The system which generated this result transmitted reference range : 23 - 38 Seconds . The reference range was not used to interpr et this result as normal/abnormal . JENNIFFER (test code = JENNIFFER) The [facility] patient population mean normal value for aPTT is 30 seconds. Lab Interpretation Normal (test code = 11343-9) [facility] CenterPROTHROMBIN TIME / [id number] 06:52:12 Test Item Value Reference Range Interpretation [...] tions. Lab Interpretation (test Normal code = 46530-4) [facility] CenterCB WITH [id number] 06:44:31 Test Item Value Reference Range Interpretation [...] RDW-SD (test code = 47.3 fL 39.0-49.9 04157-7) RDW-CV (test code = 13.8 % 12.0-15.5 788-0) PLT (test code = See_Comment [Automated 777-3) message] The sy stem which generated this result transmitted reference range : 166 - 358 10*3/ ?L. The reference r josselyn was not used to interpret this result as normal/abnormal . MPV (test code = 8.8 fL 9.5-12.9 L 46265-4) NRBC/100 WBC (test See_Comment [Automat ed code = 3884609468) message] The system which generated this result transmitted reference range : 0.0 - 10.0 /100 WBCs. The refer ence range was not u sed to interpret th is result as normal/abnormal . NRBC x10^3 (test code <0.01 See_Comment [Auto mated = 2323593822) message] The s ystem which generated this result transmitted reference range : 10*3/?L. The reference range was not used to interpret this result as normal/abnormal . GRAN MAT (NEUT) % 82.4 % (test code = 770-8) IMM GRAN % (test code 0.80 % = 5779043323) LYMPH % (test code = 8.0 % 736-9) MONO % (test code = 5.1 % 5905-5) EOS % (test code = 2.9 % 713-8) BASO % (test code = 0.8 % 706-2) GRAN MAT x10^3(ANC) 6.26 10*3/uL 1.88-7.09 (test code = 9576704010) IMM GRAN x10^3 (test 0.06 10*3/uL 0.00-0.06 code = 3861365071) LYMPH x10^3 (test code 0.61 10*3/uL 1.32-3.29 L = 731-0) MONO x10^3 (test code 0.39 10*3/uL 0.33-0.92 = 742-7) EOS x10^3 (test code = 0.22 10*3/uL 0.03-0.39 711-2) BASO x10^3 (test code 0.06 10*3/uL 0.01-0.07 = 704-7) Lab Interpretation Abnormal (test code = 44361-2) [facility]
[2022-12-07] MEDS ORDERED: METHYLPREDNISOLONE 125 MG INJ ONE (04:44)
[2022-12-07] MEDS ORDERED: ALBUTEROL 2.5 MG/3 ML NEB SOL ONE (04:44)
[2022-12-07] MEDS ORDERED: ONDANSETRON 4 MG/2 ML VIAL ONE ×2 (04:44→08:03)
[2022-12-07] MEDS ORDERED: IPRATROPIUM BROM 0.5MG/2.5ML ONE (04:44)
[2022-12-07 04:58] LABS: Arterial Blood Carboxyhemoglob 1.4 % (0-1.5); Blood Gas Oxyhemoglobin 93.7 % (94-97); Blood O2 Saturation 96.5 % (92-98.5)
[2022-12-07 05:06] LABS: Absolute Lymphocytes (CBC) 0.9 K/uL (0.7-4.9); Hematocrit 30.3 % (36.0-45.0); Lymphocytes % 7.3 % (15.3-44.8); MPV 7.2 fL (7.6-11.3); RBC Red Blood Cell Count 3.45 M/uL (3.86-4.86)
[2022-12-07 05:25] LABS: Protime INR 0.95
[2022-12-07 05:38] LABS: Blood Morphology Comment NOT SEEN (NOT SEEN); Platelet Estimate ADEQ; White Blood Cell Scan OK (OK)
--- NOTE | 2022-12-07 05:45 | ER ---
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 Coronavirus screen: Vaccine status: Patient reports receiving the 2nd dose of the covid vaccine. Ebola Screen: Patient negative for fever greater than or equal to 101.5 degrees Fahrenheit, and additional compatible Ebola Virus Disease symptoms. Initial Sepsis Screen: Does the patient meet any 2 criteria? HR > 90 bpm. Does the patient have a suspected source of infection? No. Patient's initial sepsis screen is negative. Risk Assessment: Do you want to hurt yourself or someone else? Patient reports no desire to harm self or others. Onset of symptoms was December 05, 2022. 03:53 Method Of Arrival: Wheelchair 03:53 Acuity: PAULINA 3 kl Triage Assessment: 03:56 General: Appears in no apparent distress. comfortable, Behavior is calm, cooperative. kl Pain: Complains of pain in left knee. Respiratory: No deficits noted. Reports shortness of breath Onset: The symptoms/episode began/occurred gradually, the patient has mild shortness of breath. Historical: - Allergies: 03:56 codeine sulfate; kl 03:56 Robaxin; kl 03:56 Sulfa (Sulfonamide Antibiotics); kl 03:56 Ultram; kl - PMHx: 03:56 Chronic obstructive lung disease; Congestive heart failure; diabetes mellitus; kl - PSHx: 03:56 trach; kl - Immunization history:: Adult Immunizations up to date. - Social history:: Smoking status: Patient/guardian denies using tobacco, Stopped _ months ago 1. - Family history:: not pertinent. Screenin:16 [facility] ED Fall Risk Assessment (Adult) History of falling in the last 3 months, pf1 including since admission No falls in past 3 months (0 pts) Confusion or Disorientation No (0 pts) Intoxicated or Sedated No (0 pts) Impaired Gait No (0 pts) Mobility Assist Device Used No (0 pt) Altered Elimination No (0 pt) Score/Fall Risk Level 0 - 2 = Low Risk Oriented to surroundings, Maintained a safe environment, Educated pt \\T\\ family on fall prevention, incl call for assistance when getting out of bed. Abuse screen: Denies threats or abuse. Nutritional screening: No deficits noted. Tuberculosis screening: No symptoms or risk factors identified. Assessment: 04:00 General: Appears in no apparent distress. comfortable, well groomed, well developed, pf1 Behavior is calm, cooperative, appropriate for age, quiet. 04:00 Pain: Denies pain. Neuro: No deficits noted. Level of Consciousness is awake, alert, pf1 obeys commands, Oriented to person, place, time, situation. Cardiovascular: No deficits noted. Capillary refill < 3 seconds Patient's skin is warm and dry. Respiratory: Airway via trache Respiratory effort is even, unlabored, Respiratory pattern is regular, symmetrical. 04:00 Cardiovascular: Reports shortness of breath, since 2 days Rhythm is regular. pf1 04:00 Respiratory: Reports shortness of breath at rest since 2 days Breath sounds are clear pf1 bilaterally. GI: Abdomen is round non-distended, Bowel sounds present X 4 quads. Reports nausea. : No deficits noted. No signs and/or symptoms were reported regarding the genitourinary system. EENT: No deficits noted. No signs and/or symptoms were reported regarding the EENT system. EENT: No deficits noted. No signs and/or symptoms were reported regarding the EENT system. Derm: No deficits noted. No signs and/or symptoms reported regarding the dermatologic system. 05:00 Reassessment: Patient appears in no apparent distress at this time. Patient and/or pf1 family updated on plan of care and expected duration. Pain level reassessed. Patient is alert, oriented x 3, equal unlabored respirations, skin warm/dry/pink. Patient states symptoms have improved. 05:46 General: lab notified of needed blood draw. lg3 06:00 Reassessment: Patient appears in no apparent distress at this time. Patient and/or pf1 family updated on plan of care and expected duration. Pain level reassessed. Patient is alert, oriented x 3, equal unlabored respirations, skin warm/dry/pink. Patient states symptoms have improved. 06:32 Reassessment: patient using BS commode at this time.. pf1 07:26 Reassessment: Pt complaining of "Not feeling right." SP02 100%, HE sinus tach at 114, jl7 BP 151/89, no visual signs of distress noted at this time. Pt requesting her , Mr. Erickson notified and reports he will be back in a few minutes. 07:39 Reassessment: Patient and/or family updated on plan of care and expected duration. Pain ap3 level reassessed. Patient is alert, oriented x 3, equal unlabored respirations, skin warm/dry/pink. 08:00 Reassessment: patient requested to take home medication of hydroxyzine. nurse notified ap3 provider who approved the patient taking her home medication at this time. 09:14 Reassessment: Nurse to nurse with [facility], awaiting EMS transport. af2 10:36 Reassessment: EMS at bedside for transfer. bedside report given. ap3 Vital Signs: 03:53 BP 144 / 74; Pulse 106; Resp 20; Temp 98(TE); Pulse Ox 100% 8 lpm ; kl 05:00 BP 131 / 71; Pulse 98; Resp 20; Pulse Ox 96% on ETT vent; pf1 06:00 BP 134 / 70; Pulse 98; Resp 20; Pulse Ox 96% ; pf1 07:29 BP 151 / 89; Pulse 113; Resp 17; Pulse Ox 100% ; jl7 10:52 BP 154 / 92; Pulse 97; Pulse Ox 98% on Trach; ap3 ED Course: 03:43 Patient arrived in ED. jj6 03:56 Triage completed. kl 03:58 Caleb Esposito MD is Attending Physician. sp4 04:18 XRAY Chest (1 view) In Process Unspecified. EDMS 04:50 COVID-19 SARS RT PCR Sent. lg3 04:50 Basic Metabolic Panel Sent. lg3 04:50 CBC with Diff Sent. lg3 04:50 LFT's Sent. lg3 04:50 NT PRO-BNP Sent. lg3 04:50 PT-INR Sent. lg3 04:50 Troponin HS Sent. lg3 04:50 Inserted saline lock: 22 gauge in right antecubital area, using aseptic technique. pf1 Blood collected. 05:44 Reina Aponte MD is Hospitalizing Provider. sp4 06:17 Patient has correct armband on for positive identification. Call light in reach. pf1 sitting in wheelchair. Pulse ox on. NIBP on. 06:[address] In Process Unspecified. EDMS 07:00 Inserted saline lock: 22 gauge in left antecubital area, using aseptic technique. Blood pf1 collected. 07:11 Lactate w/ 2H reflex if indic. Sent. pf1 07:11 Blood Culture Adult (2) Sent. pf1 07:26 Rowena Moise, RN is Primary Nurse. jl7 07:38 initiated transfer to [facility], pt denied due to no icu beds, (pt on home bd vent, must go to icu bed). 07:39 Arm band placed on right wrist. ap3 07:52 initiated transfer to [facility]. bd 08:22 Attending Physician role handed off by Caleb Esposito MD rn 08:22 Niles Pickering MD is Attending Physician. rn 08:43 pt accepted in transfer to [facility] by dr Bowens,admin approval given by Alida Tidwell,pt going to [address] room 824. 10:37 No provider procedures requiring assistance completed. Patient transferred, IV remains ap3 in place. Administered Medications: 04:46 Drug: DuoNeb Nebulize (3:1) (2.5 mg - 0.5 mg) 3 ml Route: Nebulizer; lg3 05:14 Follow up: Response: No adverse reaction; Marked relief of symptoms pf1 04:50 Drug: Ondansetron IVP 4 mg Route: IVP; Site: right antecubital; pf1 05:18 Follow up: Response: No adverse reaction; Marked relief of symptoms pf1 04:50 Drug: MethylPrednisoLONE IVP 125 mg Route: IVP; Site: right antecubital; pf1 05:17 Follow up: Response: No adverse reaction; Marked relief of symptoms pf1 06:07 Drug: [place] PO 10 mg-325 mg 1 tabs Route: PO; kl 06:32 Follow up: Response: No adverse reaction; Marked relief of symptoms; Pain is decreased; pf1 RASS: Alert and Calm (0) 08:00 Drug: Ondansetron IVP 4 mg Route: IVP; Site: left antecubital; ap3 10:37 Follow up: Response: No adverse reaction; Nausea is decreased ap3 Medication: 06:17 VIS not applicable for this client. pf1 Outcome: 05:45 Decision to Hospitalize by Provider. sp4 07:25 ER care complete, transfer ordered by . sp4 10:37 Transferred by ground EMS to [facility]. ap3 10:37 Condition: good ap3 10:53 Patient left the ED. ap3 Signatures: Dispatcher [employer] EDMS Mary Kirkland Kimberly, RN RN Niles Jackson MD MD rn Leal, Jahala, RN RN jl7 Jordyn Mosley RN RN ap3 Breanne Nagy RN RN [email or web address] Jenny Gusman Pamala, RN RN pf1 Caleb Esposito MD MD sp4 Elise Collier RN RN af2 Corrections: (The following items were deleted from the chart) 06:26 06:16 Cardiovascular: Rhythm is regular pf1 pf1
--- NOTE | 2022-12-07 05:46 | EDPHYS ---
Physician Documentation [facility] Name: Janie Erickson Age: 62 yrs Sex: Female : 1960 Arrival Date: 12/07/2022 Time: 03:43 Bed 4 Private MD: ED Physician Niles Pickering HPI: 12/07 03:58 This 62 yrs old Other Race Female presents to ER via Wheelchair with complaints of sp4 Breathing Difficulty, Nausea. 04:31 This 62 yrs old Female presents to ER via Wheelchair with complaints of sp4 Breathing Difficulty, Nausea. 04:31 Patient states that she has developed some nausea and worsening difficulty breathing sp4 starting 2 days ago associated with her COPD. Patient has tracheostomy and she is ventilator dependent. Patient has a history of permanent tracheostomy, on home ventilator, chronic hypercapnic respiratory failure, COPD, chronic diastolic heart failure, insulin-dependent type 2 diabetes, additionally history of hysterectomy, , left knee surgery, hyperlipidemia, hypothyroidism. Also history of moderate to severe physical debility. Last admission on 11/23/2022 for COPD exacerbation.. Patient's medications include Flexeril, famotidine, furosemide, Rhodes 10 as needed, albuterol/ipratropium nebulized, levothyroxine, iron supplementation, metformin, Paxil, pregabalin, Seroquel, spironolactone, montelukast, rosuvastatin, glargine insulin, Daliresp. Historical: - Allergies: 03:56 codeine sulfate; kl 03:56 Robaxin; kl 03:56 Sulfa (Sulfonamide Antibiotics); kl 03:56 Ultram; kl - PMHx: 03:56 Chronic obstructive lung disease; Congestive heart failure; diabetes mellitus; kl - PSHx: 03:56 trach; kl - Immunization history:: Adult Immunizations up to date. - Social history:: Smoking status: Patient/guardian denies using tobacco, Stopped _ months ago 1. - Family history:: not pertinent. ROS: 04:31 Constitutional: Negative for fever, chills, and weight loss, Eyes: Negative for injury, sp4 pain, redness, and discharge, ENT: Negative for injury, pain, and discharge, Neck: Negative for injury, pain, and swelling, Cardiovascular: Negative for chest pain, palpitations, and edema, Respiratory: Negative for cough, wheezing, and pleuritic chest pain, positive for dyspnea, worsening from baseline Abdomen/GI: Negative for abdominal pain, vomiting, diarrhea, and constipation, positive for nausea Back: Negative for injury and pain, : Negative for injury, bleeding, discharge, and swelling, MS/Extremity: Negative for injury and deformity, Skin: Negative for injury, rash, and discoloration, Neuro: Negative for headache, weakness, numbness, tingling, and seizure, Psych: Negative for depression, anxiety, Allergy/Immunology: Negative for hives, rash, and allergies Endocrine: Negative for neck swelling, polydipsia, polyuria, polyphagia, and weight changes Hematologic/Lymphatic: Negative for swollen nodes, abnormal bleeding, and unusual bruising Exam: 04:31 Constitutional: This is a well developed, well nourished patient who is awake, alert, sp4 heavily debilitated female, morbidly obese, tracheostomy dependent, ventilator dependent. Ambulatory with assistance Head/Face: Normocephalic, atraumatic. Eyes: Pupils equal round and reactive to light, extra-ocular motions intact. Lids and lashes normal. Conjunctiva and sclera are not injected. Cornea within normal limits. Periorbital areas with no swelling, redness, or edema. ENT: Nares patent. No nasal discharge, no septal abnormalities noted. Tympanic membranes are normal and external auditory canals are clear. Oropharynx with no redness, swelling, or masses, exudates, or evidence of obstruction, uvula midline. Mucous membranes moist. Neck: Trachea midline, no thyromegaly or masses palpated, and no cervical lymphadenopathy. Supple, full range of motion without nuchal rigidity, tracheostomy present Chest/axilla: Normal chest wall appearance and motion. Nontender with no deformity. No lesions are appreciated. Cardiovascular: Regular rate and rhythm with a normal S1 and S2. No gallops, murmurs, or rubs. Normal PMI, no JVD. No pulse deficits. Respiratory: Lungs have equal breath sounds bilaterally, clear to auscultation and percussion. No rales, rhonchi or wheezes noted. No increased work of breathing, no retractions or nasal flaring. Abdomen/GI: Soft, non-tender, with normal bowel sounds. No distension or tympany. No guarding or rebound. No evidence of tenderness throughout. Back: No spinal tenderness. No costovertebral tenderness. Skin: Warm, dry with normal turgor. Normal color with no rashes, no lesions, and no evidence of cellulitis. MS/ Extremity: Pulses equal, no cyanosis. Neurovascular intact. Full, normal range of motion. Neuro: Awake and alert, GCS 15, oriented to person, place, time, and situation. Cranial nerves II-XII grossly intact. Motor strength 5/5 in all extremities. Sensory grossly intact. Psych: Awake, alert, with orientation to person, place and time. Behavior, mood, and affect are within normal limits 05:15 ECG was reviewed by the Attending Physician. EKG time 0 430. There is normal sinus sp4 rhythm at a rate of 99, no ST elevation or depression, no ectopy, overall normal EKG Vital Signs: 03:53 BP 144 / 74; Pulse 106; Resp 20; Temp 98(TE); Pulse Ox 100% 8 lpm ; kl 05:00 BP 131 / 71; Pulse 98; Resp 20; Pulse Ox 96% on ETT vent; pf1 06:00 BP 134 / 70; Pulse 98; Resp 20; Pulse Ox 96% ; pf1 07:29 BP 151 / 89; Pulse 113; Resp 17; Pulse Ox 100% ; jl7 10:52 BP 154 / 92; Pulse 97; Pulse Ox 98% on Trach; ap3 MDM: 04:00 Patient medically screened. sp4 05:45 Differential diagnosis: CHF exacerbation, Chronic Obstructive Pulmonary Disease sp4 Myocardial Infarction pneumonia, Psychogenic pulmonary edema. Data reviewed: vital signs, nurses notes, old medical records, lab test result(s), cardiac enzymes, CBC, electrolytes, hepatic panel, EKG, radiologic studies, plain films. ED course: Patient has high abdomen the regular baseline PCO2 of 94, signs of respiratory acidosis. Patient warrants admission for management of COPD with hypercarbia. Admission team elected to obtain CT chest without IV contrast . 07:11 ED course: CT chest revealed tracheostomy is short abuts posterior wall of the trachea. sp4 Concerning for tracheostomy tube impingement on posterior wall of the trachea and clinical correlation is advised. Under aerated lungs with moderate bibasilar atelectasis. Respiratory motion artifact obscures lung detail. No evidence of acute cardiopulmonary process. Stable 3 mm noncalcified right upper lobe pulmonary nodule. This is compatible with benign process. Status postcholecystectomy. . 07:20 ED course: Patient CT reveals tracheotomy impingement on posterior wall of the trachea. sp4 This may require ENT attention. Admitting physician here is not comfortable admitting without ENT coverage. Will attempt transfer to [facility]. 07:54 Transition of care: After a detail discussion of the patient's case, care is sp4 transferred to Niles Pickering MD. 07:55 ED course: Patient was discussed with local ENT Dr. Duke who states that she would not sp4 be able to perform any tracheostomy revision on the patient. At this time patient is a difficult surgical candidate and Dr. Duke states patient will benefit from higher level of care and possible tracheostomy revision and one of the [facility]. The [facility] is familiar with the patient we will request transfer to [facility]. . 08:22 ED course: Pt care transferred over to dc by Dr. Esposito, I completed the transfer rn process to [facility], accepted to ICU by pulmonology there. Patient's exhalation volumes are generally matching inhalation tidal volume of 450, does not appear to be in distress. Hospitalist was not comfortable keeping patient here with possible impingement of tracheostomy tube without ENT. Hemodynamically stable and not in resp distress. . 12/07 04:00 Order name: Basic Metabolic Panel; Complete Time: 06:09 [facility] 12/07 04:00 Order name: CBC with Diff; Complete Time: 05:39 [facility] 12/07 04:00 Order name: LFT's; Complete Time: 06:09 [facility] 12/07 04:00 Order name: NT PRO-BNP; Complete Time: 06:09 [facility] 12/07 04:00 Order name: PT-INR; Complete Time: 05:39 12/07 04:00 Order name: Troponin HS; Complete Time: 06:09 [facility] 12/07 04:31 Order name: COVID-19 SARS RT PCR; Complete Time: 05:39 [facility] 12/07 04:37 Order name: ABG; Complete Time: 05:14 [facility] 12/07 05:18 Order name: Blood Culture Adult (2) 12/07 05:18 Order name: Lactate w/ 2H reflex if indic.; Complete Time: 07:25 [facility] 12/07 05:38 Order name: CBC Smear Scan; Complete Time: 05:39 EDMS 12/07 09:12 Order name: Glucose, Ancillary Testing; Complete Time: 10:01 EDMS 12/07 04:00 Order name: XRAY Chest (1 view) 4 12/07 05:18 Order name: Chest Wo Con CT la1 12/07 04:00 Order name: EKG; Complete Time: 04:01 sp4 12/07 04:00 Order name: Cardiac monitoring; Complete Time: 04:46 [facility] 12/07 04:00 Order name: EKG - Nurse/Tech; Complete Time: 04:46 sp4 12/07 04:00 Order name: IV Saline Lock; Complete Time: :46 sp4 12/07 04:00 Order name: Labs collected and sent; Complete Time: :46 4 12/07 04:00 Order name: O2 Per Protocol; Complete Time: 04:46 sp4 12/07 04:00 Order name: O2 Sat Monitoring; Complete Time: : EC:15 Rate is 99 beats/min. Rhythm is regular, Normal Sinus Rhythm. QRS [place] is Normal. [place] sp4 interval is normal. QRS interval is normal. QT interval is normal. T waves are Normal. No ST changes noted. Clinical impression: Normal ECG. Interpreted by me. Administered Medications: 04:46 Drug: DuoNeb Nebulize (3:1) (2.5 mg - 0.5 mg) 3 ml Route: Nebulizer; lg3 05:14 Follow up: Response: No adverse reaction; Marked relief of symptoms pf1 04:50 Drug: Ondansetron IVP 4 mg Route: IVP; Site: right antecubital; pf1 05:18 Follow up: Response: No adverse reaction; Marked relief of symptoms pf1 04:50 Drug: MethylPrednisoLONE IVP 125 mg Route: IVP; Site: right antecubital; pf1 05:17 Follow up: Response: No adverse reaction; Marked relief of symptoms pf1 06:07 Drug: Rhodes PO 10 mg-325 mg 1 tabs Route: PO; kl 06:32 Follow up: Response: No adverse reaction; Marked relief of symptoms; Pain is decreased; pf1 RASS: Alert and Calm (0) 08:00 Drug: Ondansetron IVP 4 mg Route: IVP; Site: left antecubital; ap3 10:37 Follow up: Response: No adverse reaction; Nausea is decreased ap3 Disposition Summary: 12/07/22 07:25 Transfer Ordered Reason: Higher level of care sp4 Condition: Stable(12/07/22 07:25) sp4 Problem: new(12/07/22 07:25) sp4 Symptoms: are unchanged(12/07/22 07:25) sp4 Transfer Location: [facility]-System(12/07/22 07:55) sp4 Accepting Physician: [facility] hospitalist (12/07/22 10:53) ap3 Diagnosis - COPD/ Chronic obstructive pulmonary disease with (acute) exacerbation(12/07/22 sp4 07:25) - Tracheostomy complication sp4 Forms: - Medication Reconciliation Form sp4 - SBAR form sp4 Signatures: Dispatcher [employer] EDCarie Gayle, RN RN Niles Jackson MD MD rn Attema, Lee, AUTOMATIC GRINDING MACHINE OPERATOR-C AUTOMATIC GRINDING MACHINE OPERATOR-Cla1 Jordyn Mosley RN OLIVE ap3 Breanne Nagy RN RN lg3 Penelope Urias RN RN vc1 Carolyn Chaney RN RN pf1 Caleb Esposito MD MD sp4 Corrections: (The following items were deleted from the chart) 07:21 05:45 Inpatient Admission sp4 sp4 07:21 05:45 Reina Aponte sp4 sp4 07:21 05:45 Telemetry/MedSurg (Inpatient) sp4 sp4 07:21 05:45 Stable sp4 sp4 07:21 05:45 new sp4 sp4 07:21 05:45 have improved sp4 sp4 07:21 05:45 Standard sp4 sp4 07:21 05:45 sp4 sp4 07:21 05:45 COPD/ Chronic obstructive pulmonary disease with (acute) exacerbation sp4 sp4 07:21 05:45 Respiratory acidosis and hypoxemia , Chronic respiratory failure sp4 sp4 07:55 07:25 [facility] Hospitalist sp4 sp4 07:55 07:25 [facility] sp4 sp4 10:53 07:55 [facility] hospitalist sp4 ap3
[2022-12-07 05:50] LABS: Albumin 3.4 g/dL (3.4-5.0); Bilirubin Direct 0.1 mg/dL (0-0.2); Bilirubin Indirect, Calculated 0.3 mg/dL (0.2-0.8); Bilirubin Total 0.4 mg/dL (0.2-1.0); Protein, Total 7.2 g/dL (6.4-8.2); Troponin High Sensitivity 9.9 pg/mL (<58.9)
[2022-12-07] MEDS ORDERED: HYDROCODONE/APAP 10/325 TAB ONE (06:13)
[2022-12-07 11:20] VITALS: TEMP 98
[2022-12-07 11:25] VITALS: BP 154/92; O2SAT 98
--- NOTE | 2022-12-07 11:42 | EKG ---
Test Date: 2022-12-07 Test Time: 04:40:33 Vat Overhauler: GABRIELA MEASUREMENT RESULTS: Intervals: Rate: 99 OR: 142 QRSD: 68 QT: 322 QTc: 413 [place]: P: 71 OR: 142 QRS: 37 T: 58 INTERPRETIVE STATEMENTS: Normal sinus rhythm Normal ECG Compared to ECG 11/26/2022 19:49:11 ST (T wave) deviation no longer present Electronically Signed On 12-07-22 11:41:18 CDT by Minh James
--- NOTE | 2022-12-08 14:54 | RAD REPORT ---
EXAM DESCRIPTION: RAD - Chest Single View - 12/07/2022 4:16 am CLINICAL HISTORY: CONGESTION COMPARISON: 09/09/2022 FINDINGS: Single frontal view of the chest. Tubes and lines: Tracheostomy. Cardiomediastinal silhouette: Heart is not enlarged. Lungs: Left lung calcified granuloma. Chronic appearing interstitial opacities. Mild hazy bibasilar o pacities. Low lung volumes. No pneumothorax. Bones: Degenerative changes spine. Upper abdomen: No acute findings. IMPRESSION: Mild hazy bibasilar opacities may be related to atelectasis or developing pneumonic proc ess. Electronically signed by: Darrell Price 12/07/2022 4:30 AM CDT Due to temporary technical issues with the PACS/Fluency reporting system, reports are being signed by the in house radiologist without review as a courtesy to ensure prompt reporting. The interpreting r adiologist is fully responsible for the content of the report.
--- NOTE | 2022-12-08 14:57 | RAD REPORT ---
EXAM DESCRIPTION: CT - Thorax Wo Con - 12/07/2022 7:[address] CHEST WITHOUT IV CONTRAST CLINICAL HISTORY: [facility] pulm opatcities, leukocytosis COMPARISON: Chest CT, 11/22/2022 and 05/02/2021 TECHNIQUE: Multiple contiguous axial CT images of the chest were obtained without the administration of intravenous contrast. Sagittal and coronal reconstructions were performed. All CT scans at this facility use dose modulation, iterative reconstruction, and/or weight based dosing when appropriate to reduce radiation dose to as low as reasonably achievable. FINDINGS: Mediastinum: The heart and great vessels appear unremarkable. There is no pericardial ef fusion. No evidence of mediastinal lymphadenopathy. Lungs: There is a tracheostomy tube in place. The tracheostomy tube appears slightly short and appe ars to impinge on the posterior wall of the trachea. There is moderate dependent atelectasis at the b ilateral lung bases. Respiratory motion artifact obscures the fine lung detail. No evidence of focal consolidation. There is a dominant calcified left upper lobe granuloma measuring 1.2 cm in diameter. There is a stable 3 mm noncalcified nodule in the medial right upper lobe on image 20. No new soft ti ssue nodules are seen. No pleural effusion or pneumothorax identified. Upper Abdomen: The visualized upper abdominal contents reveal no acute process. Previous cholecyste ctomy noted. Bones and Soft Tissues: No acute osseous abnormalities are identified. The soft tissues are unremar kable. IMPRESSION: The patient's tracheostomy tube appears slightly short and directly abuts the posterior wall of the trachea at the site of insertion. This is concerning for tracheostomy tube impingement on the posterior wall of the trachea and clinical correlation is advised. Under aerated lungs with moderate bibasilar atelectasis. Respiratory motion artifact obscures the fin e lung detail. No other evidence of an acute cardiopulmonary process. Stable 3 mm noncalcified right upper lobe pulmonary nodule since April 2021 compatible with a benig n process. No further follow-up recommended. Status post cholecystectomy. Electronically signed by: Bridger Saul MD 12/07/2022 6:38 AM CDT Due to temporary technical issues with the PACS/Fluency reporting system, reports are being signed by the in house radiologist without review as a courtesy to ensure prompt reporting. The interpreting r adiologist is fully responsible for the content of the report.
== END 2022-12-07 10:53 | disposition short-term general hospital (02) ==
LOC: ER 03:43
DX: J44.1 Chronic obstructive pulmonary disease with (acute) exacerbation (principal); J95.00 Unspecified tracheostomy complication; E11.9 Type 2 diabetes mellitus without complications; I50.9 Heart failure, unspecified; Z87.891 Personal history of nicotine dependence; Z79.84 Long term (current) use of oral hypoglycemic drugs; Z79.899 Other long term (current) drug therapy; Z88.5 Allergy status to narcotic agent; Z88.2 Allergy status to sulfonamides; Z88.8 Allergy status to other drugs, medicaments and biological substances
CPT/HCPCS: 93005; 87040 ×2; 85025; 80048; 36415; 85610; 82947; 80076; 83605; 84484; 83880; 71250; 71045; 94640; 82805; 99285; 94002 ×2; U0003; J7613; J7644; J2930; J2405 ×2

== ENCOUNTER 2022-12-22 05:31 | Inpatient (IN) | payer OTHER ==
[2022-12-22] MEDS ORDERED: METHYLPREDNISOLONE 125 MG INJ ONE (05:53)
--- OUTSIDE RECORDS SUMMARY | 2022-12-22 05:53 | XMS REPORT | Continuity of Care Document ---
:1960 Author Organization [facility] [place] [facility] t Address [address] [place] [address] [address] [place] [address] Care Team Providers Name Role Phone Gab Luna Primary Care Physician LV LIZ Attending Clinician Unavailable LV LIZ Attending Clinician Unavailable Alessandra Arrieta RN Attending Clinician Lv Liz DO Attending Clinician Tracy Johnson MD Attending Clinician Amy Lira MD Attending Clinician AMY LIRA Attending Clinician Unavailable JOSLYN RUELAS Attending Clinician Unavailable Joslyn Ruelas DO Attending Clinician COREY GONZALEZ Attending Clinician Unavailable Jonas Hernandez MD Attending Clinician Corey Gonzalez MD Attending Clinician GEN ACEVEDO Attending Clinician Unavailable Gen Acevedo DO Attending Clinician PAULA ROWE Attending Clinician Unavailable Paula Rowe MD Attending Clinician Sanjay HENRY Attending Clinician Unavailable Sanjay Kothari Attending Clinician SUNSHINE PELAEZ Attending Clinician Unavailable Kevin Lebron DO Attending Clinician Sunshine Pelaez MD Attending Clinician [phone] VALERIANO PANTOJA Attending Clinician Unavailable Valeriano Pantoja MD Attending Clinician JONAS HERNANDEZ Attending Clinician Unavailable Layne Guallpa MD Attending Clinician SHAHLA ANDRADE Attending Clinician Unavailable Erik DESAI, Janis Pereira Attending Clinician [phone] Cory Cee MD Attending Clinician DUKE VELAZQUEZ Attending Clinician Unavailable [facility] Attending Clinician Patria Brewer LVN Attending Clinician ENE GIVENS Attending Clinician Unavailable ENE GIVENS Attending Clinician Unavailable Ene Givens MD Attending Clinician Doctor Unassigned, [place] Attending Clinician Unavailable LAYNE GUALLPA Attending Clinician Unavailable APARNA BATES Attending Clinician Unavailable Aparna Bates MD Attending Clinician CAMILA ORTIZ Attending Clinician Unavailable GAB LUNA Attending Clinician Unavailable JUNE CALDERON Attending Clinician Unavailable LV LIZ Admitting Clinician Unavailable Lv Liz DO Admitting Clinician TRACY JOHNSON Admitting Clinician Unavailable JOSLYN RUELAS Admitting Clinician Unavailable JONAS HERNANDEZ Admitting Clinician Unavailable oJnas Hernandez MD Admitting Clinician GEN ACEVEDO Admitting [...] Type Policy Number Effective Date Expiration Date Jess VO COMMERCIAL [id number] 2022 OUT OF NETWORK 00:00:00 HIM YANETR FROM [id number] 2020 [facility] 00:00:00 [employer] [place] [id number] 2019 00:00:00 Problems Condition Condition Condition Status [...] ve urgency 1-11 it y of 00:00: [place] [facility] Chest pain Chest pain Disease Active U nivers 8-02 ity of 00:: [place] [facility] Abdominal Abdominal Disease Active Uni vers pain pain 8- ity of 00:00: [place] [facility] Tracheomal Tracheomal Disease Active U nivers acia acia 7-31 ity of 00:00: [place] [facility] Tracheosto Tracheosto Disease Active U nivers my in my in [address] 00:00: [place] [facility] Dyspnea, Dyspnea, Disease Active Unive rs unspecifie unspecifie 7-29 it y of d type d type 00:00: [place] [facility] Acute Acute Disease Active [place] [facility] respirator respirator 721 it y of y failure y failure 00:00: Katherine s with with 00 Medical hypoxia hypoxia Branch and and hypercapni hypercapni a a Elevated Elevated Disease Active Unive rs brain brain 7-06 ity of natriureti natriureti 00:[place] c peptide c peptide 00 [facility] michel (BNP) (BNP) Branch level level Anasarca Anasarca Disease Active Unive rs 7-05 ity of 00:00: [place] [facility] Acute Acute Disease Active 2016-07 [place] [facility] respirator respirator 1-09 it y of y failure y failure 00:00: [facility] Branch Respirator Respirator Disease Active U nivers y failure y failure 8-15 ity of with with 00:00: [place] hypercapni hypercapni 00 Me dical a a Branch Morbid Morbid Disease Active Univers obesity obesity 7-14 ity of with body with body 00:00: [place] mass index mass index 00 Me [...] [place] y failure y failure 00 [facility] michel Branch Obesity Obesity Disease Active Univers (BMI (BMI 3-17 ity of 30-39.9) 30-39.9) 00:00: [place] 00 Medical Branch VAP VAP Disease Active [...] Disease Active Univers 9-24 ity of 00:00: [place] [facility] Hypercapni Hypercapni Disease Active U nivers c c 9-01 ity of respirator respirator 00:[place] failure, y failure, 00 Me dical chronic chronic Branch Respirator Respirator Disease Active U nivers y failure y failure 8-16 ity of with with 00:00: [place] hypoxia hypoxia Medical Branch COPD COPD Disease Active Univers exacerbati exacerbati 7-28 it y of on on 00:00: [place] [facility] Respirator Respirator Disease Active U nivers y failure y failure 7-04 ity of with with 00:00: [place] hypoxia hypoxia Medical and and Branch hypercapni hypercapni a a Respirator Respirator Disease Active U nivers y failure y failure 6-09 ity of 00:00: [place] [facility] Hypotensio Hypotensio Disease Active U nivers n n 3-10 ity of 00:00: [place] [facility] COPD COPD Disease Active Univers [...] Uni vers INGREDI 02-16 ity of 00:00: [place] 00 Medical Branch [...] s Branch Codeine Propensi Active Unknown - [facility] ers ty to See comments 02-16 ity of adverse 00:00: [place] reaction 00 Medical s Branch Tramadol Propensi Active Unknown - Uni vers ty to See comments 02-16 ity of adverse 00:00: [place] reaction Medical s Branch Sertrali Propensi Active Unknown - Uni vers ne ty to See comments 02-16 ity of adverse 00:00: [place] reaction Medical s Branch CIPROFLO DRUG Active Other-Cmnt [facility] ers XACIN INGREDI 03-08 ity of HCL 00:00: Medical Branch Ciproflo Propensi Active Other - See Mouth U nivers xacin ty to comments 03-08 broke out ity o f Hcl adverse 00:00: in [place] reaction blisters, Medic al s but pt Branch thinks this was to sprite not actual medicatio n TIOTROPI DRUG Active Med Other-Cmnt [facility] ers UM INGREDI 02-22 ity of BROMIDE 00:00: [place] [facility] Tiotropi Propensi Active Other - See Makes U nivers um ty to comments 02-22 chela ity of [place] adverse 00:00: swell [place] reaction Medical s [...] Stop Date Quantity Comments Source History SDOH [facility] Transport [facility] History SDOH University o f Alcohol Std Drinks [place] [facility] History SDOH University o f Alcohol Binge [place] [facility] al [facility] History SDOH Social Unive rsity of Connections [facility] Med ical Together Branch History SDOH Social Unive rsity of Connections [facility] Medical Branch History SDOH Social Unive rsity of Connections [place] [facility] Membership Branch History SDOH Social Unive rsity of Connections [place] [facility] Meetings Branch History of tobacco Passive smoker Un iversity of use [place] [facility] Exposure to 2022-11-30 2022-12-10 Not sure University of SARS-CoV-2 (event) 00:00:00 16:41:00 [place] [facility] History SDOH 2022-12-08 2022-12-08 1 University o f Alcohol Frequency 00:00:00 00:00:00 [place] M edical Branch History SDOH Social 2022-12-08 2022-12-08 5 Unive rsity of Connections Phone 00:00:00 00:00:00 [place] M edical Branch History SDOH Social 2022-12-08 2022-12-08 3 Unive rsity of Connections Living 00:00:00 00:00:00 [place] [facility] History SDMN 2022-12-08 2022-12-08 0 University o f Physical Activity 00:00:00 00:00:00 [place] [facility]ical DPW Branch History SDMN 2022-12-08 2022-12-08 0 University o f Physical Activity 00:00:00 00:00:00 [place] M [facility]ical MPS Branch History SDOH 2022-12-08 2022-12-08 5 University o f Financial 00:00:00 00:00:00 [place] [facility] History SDMN Food 2022-12-08 2022-12-08 1 Univers ity of Worry 00:00:00 00:00:00 [place] [facility] History SDMN Food 2022-12-08 2022-12-08 1 Univers ity of Scarcity 00:00:00 00:00:00 [place] [facility] History SDOH 2022-12-08 2022-12-08 2 University o f Housing Unable to 00:00:00 00:00:00 [facility] edical Pay Branch History SDMN 2022-12-08 2022-12-08 1 University o f Housing Places 00:00:00 00:00:00 [place] [facility]i michel Lived Branch History SDMN 2022-12-08 2022-12-08 2 University o f Housing Homeless 00:00:00 00:00:00 [place] Me dical Last Year Branch Cigarettes smoked 2022-12-07 2022-12-07 Univers ity of current (pack per 00:00:00 00:00:00 [facility] edical day) - Reported Branch Cigarette 2022-12-07 2022-12-07 University of pack-years 00:00:00 00:00:00 [facility] Branch Tobacco use and 2022-12-07 2022-12-07 Smokeless Universit y of exposure 00:00:00 00:00:00 tobacco non-user [place] Me dical Branch Alcohol intake 2022-11-25 2022-11-25 Ex-drinker [facility]finding[facility] History SDOH 2022-11-25 2022-11-[address] [facility] Transport Med 00:00:00 00:00:[address] Tobacco Comment 2022-02-12 2022-02-12 Pt trached Universit y of 00:00:00 00:00:00 [facility] Sex Assigned At [birth year] INNA Ferreira 00:00:00 00:00:00 Medical Center Smoking Status Start Date Stop Date Source Ex-smoker 2022-12-07 00:00:00 2022-12-07 00:00:00 Universi ty [facility] Smokes tobacco daily 2022-02-12 00:00:00 Univers ity [facility] Medications Ordered Filled Start Stop Current Ordering Indication Dosage Frequency Signature Comments Components Source Medication Medication Date Date Medication? Clinician (SIG) Name Name insulin Yes [id number] 25U inject 25 Univers glargine 5-19 Units ity of 100 unit/mL 00:00: under the [place] injection 00 skin every Medi michel 24 Branch (twenty-fo ur) hours. polyethylen Yes [id number] 17g Take 1 Univers e glycol 5-19 Packet by ity of 3350 17 00:00: mouth in [place] gram powder 00 the Medical morning. Branch sennosides- Yes [id number] 1{tbl} Take 1 Univers docusate 5-19 tablet by ity of sodium 00:00: mouth in [place] 8.6-50 mg 00 the Medical per tablet morning. Bran h insulin Yes [id number] 25U inject 25 Univers glargine 5-19 Units ity of 100 unit/mL 00:00: under the [place] injection 00 skin every Medi michel 24 Branch (twenty-fo ur) hours. polyethylen 2022- Yes [id number] 17g Take 1 Univers e glycol 5-19 Packet by ity of 3350 17 00:00: mouth in [place] gram powder 00 the Medical morning. Branch sennosides- Yes [id number] 1{tbl} Take 1 Univers docusate 5-19 tablet by ity of sodium 00:00: mouth in [place] 8.6-50 mg 00 the Medical per tablet morning. Branc h insulin Yes [id number] 25U inject 25 Univers glargine 5-19 Units ity of 100 unit/mL 00:00: under the [place] injection 00 skin every Medi michel 24 Branch (twenty-fo ur) hours. polyethylen 2022-0 Yes [id number] 17g Take 1 Univers e glycol 5-19 Packet by ity of 3350 17 00:00: mouth in [place] gram powder 00 the Medical morning. Branch sennosides- 2022-0 Yes [id number] 1{tbl} Take 1 Univers docusate 5-19 tablet by ity of sodium 00:00: mouth in [place] 8.6-50 mg 00 the Medical per tablet morning. [facility] insulin 2022-0 Yes [id number] 25U inject 25 Univers glargine 5-19 Units ity of 100 unit/mL 00:00: under the [place] injection 00 skin every Medi michel 24 Branch (-fo ur) hours. polyethylen 2022-0 Yes [id number] 17g Take 1 Univers e glycol 5-19 Packet by ity of 3350 17 00:00: mouth in [place] gram powder 00 the Medical morning. Branch sennosides- 0 Yes [id number] 1{tbl} Take 1 Univers docusate 5-19 tablet by ity of sodium 00:00: mouth in [place] 8.6-50 mg 00 the Medical per tablet morning. [facility] hydrOXYzine 2022-0 Yes [id number] 10mg Take 1 Univers 10 mg 5-19 06 tablet by ity of tablet 00:00: mouth [place] 00 every 8 Medical (eight) Branch hours as needed for Anxiety. HYDROcodone 2022-0 Yes 1{tbl} Take 1 Un alexia -acetaminop 5-18 tablet by ity of hen 10-325 16:11: mouth [place] mg tablet 15 every 8 Medical (eight) Branch hours as needed. cyclobenzap 2022-0 Yes 10mg Take 10 mg Univers rine 5 mg 5-18 by mouth 3 ity of tablet 16:11: (three) [place] 15 times Medical daily. Branch LORazepam 2022-0 Yes .5mg Take 0.5 Univ ers 0.5 mg 5-18 mg by ity of tablet 16:11: mouth 2 [place] 15 (two) Medical times Branch daily as needed. ipratropium 2022-0 Yes 1{ampul 1 Ampule Univers -albuterol 5-18 e} every 4 ity of 0.5 mg-3 16:11: (four) [place] mg(2.5 mg 15 hours as Medica l base)/3 mL needed for [facility] nebulizer Wheezing. solution dulaglutide 2022-0 Yes Trulicity U nivers (TRULICITY) 5-18 3 mg/0.5 ity of 3 mg/0.5 mL 16:11: mL [place] PnIj 15 subcutaneo Medical pen Branch injector metFORMIN 2022-0 Yes 750mg Take 750 Uni vers 500 mg 24 5-18 mg by ity of hr tablet 16:11: mouth [place] 15 daily with Medical breakfast. Branch spironolact 0 Yes 25mg Take 25 mg Univers one 25 mg 5-18 by mouth ity of tablet 16:11: in the [place] 15 morning. Medical Branch Levothyroxi 0 Yes 50ug Take 50 Uni vers ne 100 mcg 5-18 mcg by ity of capsule 16:11: mouth. [place] 15 Medical Branch famotidine 2022-0 Yes 40mg Take 40 mg U nivers 40 mg 5-18 by mouth ity of tablet 16:11: in the [place] 15 morning. Medical Branch magnesium 2022-0 Yes 500mg Take 500 Uni vers gluconate 5-18 mg by ity of (MAG-G 16:11: mouth at [place] ORAL) 15 bedtime. Medical Branch montelukast 2022-0 Yes 10mg Take 10 mg Univers 10 mg 5-18 by mouth. ity of tablet 16:11: [place] 15 Medical Branch HYDROcodone 2022-0 Yes 1{tbl} Take 1 Un alexia -acetaminop 5-18 tablet by ity of hen 10-325 16:11: mouth [place] mg tablet 15 every 8 Medical (eight) Branch hours as needed. cyclobenzap 2022-0 Yes 10mg Take 10 mg Univers rine 5 mg 5-18 by mouth 3 ity of tablet 16:11: (three) [place] 15 times Medical daily. Branch LORazepam 2022-0 Yes .5mg Take 0.5 Univ ers 0.5 mg 5-18 mg by ity of tablet 16:11: mouth 2 [place] 15 (two) Medical times Branch daily as needed. ipratropium 2022-0 Yes 1{ampul 1 Ampule Univers -albuterol 5-18 e} every 4 ity of 0.5 mg-3 16:11: (four) [place] mg(2.5 mg 15 hours as Medica l base)/3 mL needed for [facility] nebulizer Wheezing. solution dulaglutide 0 Yes Trulicity U nivers (TRULICITY) 5-18 3 mg/0.5 ity of 3 mg/0.5 mL 16:11: mL [place] PnIj 15 subcutaneo Medical pen Branch injector metFORMIN 2022-0 Yes 750mg Take 750 Uni vers 500 mg 24 5-18 mg by ity of hr tablet 16:11: mouth [place] 15 daily with Medical breakfast. Branch spironolact 0 Yes 25mg Take 25 mg Univers one 25 mg 5-18 by mouth ity of tablet 16:11: in the [place] 15 morning. Medical Branch Levothyroxi 0 Yes 50ug Take 50 Uni vers ne 100 mcg 5-18 mcg by ity of capsule 16:11: mouth. [place] 15 Medical Branch famotidine 0 Yes 40mg Take 40 mg U nivers 40 mg 5-18 by mouth ity of tablet 16:11: in the [place] 15 morning. Medical Branch magnesium 2022-0 Yes 500mg Take 500 Uni vers gluconate 5-18 mg by ity of (MAG-G 16:11: mouth at [place] ORAL) 15 bedtime. Medical Branch montelukast 0 Yes 10mg Take 10 mg Univers 10 mg 5-18 by mouth. ity of tablet 16:11: [place] 15 Medical Branch HYDROcodone 2022-0 Yes 1{tbl} Take 1 Un alexia -acetaminop 5-18 tablet by ity of hen 10-325 16:11: mouth [place] mg tablet 15 every 8 Medical (eight) Branch hours as needed. cyclobenzap 2022-0 Yes 10mg Take 10 mg Univers rine 5 mg 5-18 by mouth 3 ity of tablet 16:11: (three) [place] 15 times Medical daily. Branch LORazepam 0 Yes .5mg Take 0.5 Univ ers 0.5 mg 5-18 mg by ity of tablet 16:11: mouth 2 [place] 15 (two) Medical times Branch daily as needed. ipratropium 2022-0 Yes 1{ampul 1 Ampule Univers -albuterol 5-18 e} every 4 ity of 0.5 mg-3 16:11: (four) [place] mg(2.5 mg 15 hours as Medica l base)/3 mL needed for [facility] nebulizer Wheezing. solution dulaglutide 0 Yes Trulicity U nivers (TRULICITY) 5-18 3 mg/0.5 ity of 3 mg/0.5 mL 16:11: mL [place] PnIj 15 subcutaneo Medical pen Branch injector metFORMIN 2022-0 Yes 750mg Take 750 Uni vers 500 mg 24 5-18 mg by ity of hr tablet 16:11: mouth [place] 15 daily with Medical breakfast. Branch spironolact 0 Yes 25mg Take 25 mg Univers one 25 mg 5-18 by mouth ity of tablet 16:11: in the [place] 15 morning. Medical Branch Levothyroxi 0 Yes 50ug Take 50 Uni vers ne 100 mcg 5-18 mcg by ity of capsule 16:11: mouth. [place] 15 Medical Branch famotidine 2022-0 Yes 40mg Take 40 mg U nivers 40 mg 5-18 by mouth ity of tablet 16:11: in the [place] 15 morning. Medical Branch magnesium 2022-0 Yes 500mg Take 500 Uni vers gluconate 5-18 mg by ity of (MAG-G 16:11: mouth at [place] ORAL) 15 bedtime. Medical Branch montelukast 0 Yes 10mg Take 10 mg Univers 10 mg 5-18 by mouth. ity of tablet 16:11: [place] 15 Medical Branch HYDROcodone 2022-0 Yes 1{tbl} Take 1 Un alexia -acetaminop 5-18 tablet by ity of hen 10-325 16:11: mouth [place] mg tablet 15 every 8 Medical (eight) Branch hours as needed. cyclobenzap 2022-0 Yes 10mg Take 10 mg Univers rine 5 mg 5-18 by mouth 3 ity of tablet 16:11: (three) [place] 15 times Medical daily. Branch LORazepam 2022-0 Yes .5mg Take 0.5 Univ ers 0.5 mg 5-18 mg by ity of tablet 16:11: mouth 2 [place] 15 (two) Medical times [place] daily as needed. ipratropium 2022-0 Yes 1{ampul 1 Ampule Univers -albuterol 5-18 e} every 4 ity of 0.5 mg-3 16:11: (four) [place] mg(2.5 mg 15 hours as Medica l base)/3 mL needed for [facility] nebulizer Wheezing. solution dulaglutide Yes Trulicity U nivers (TRULICITY) 5-18 3 mg/0.5 ity of 3 mg/0.5 mL 16:11: mL [place] PnIj 15 subcutaneo Medical pen Branch injector metFORMIN 2022-0 Yes 750mg Take 750 Uni vers 500 mg 24 5-18 mg by ity of hr tablet 16:11: mouth [place] 15 daily with Medical breakfast. Branch spironolact 0 Yes 25mg Take 25 mg Univers one 25 mg 5-18 by mouth ity of tablet 16:11: in the [place] 15 morning. Medical Branch Levothyroxi 0 Yes 50ug Take 50 Uni vers ne 100 mcg 5-18 mcg by ity of capsule 16:11: mouth. [place] 15 Medical Branch famotidine 0 Yes 40mg Take 40 mg U nivers 40 mg 5-18 by mouth ity of tablet 16:11: in the [place] 15 morning. Medical Branch magnesium 2022-0 Yes 500mg Take 500 Uni vers gluconate 5-18 mg by ity of (MAG-G 16:11: mouth at [place] ORAL) 15 bedtime. Medical Branch montelukast Yes 10mg Take 10 mg Univers 10 mg 5-18 by mouth. ity of tablet 16:11: [place] 15 Medical Branch barium 2022-0 2022- No [id number] 30g 30 g, Univ ers sulfate 5-18 05-18 Oral, ity of (VARIBAR 14:30: 14:15 ONCE, 1 [place] THIN 00 :00 dose, On Medical LIQUID) 81 [place] Branch % (w/w) 12/10/22 at oral powder 0930, 30 g Routine dexMEDEtomi 0 Yes .2ug/kg 0.2-1.5 Univers dine 200 5-18 /h mcg/kg/hr ity of mcg in 0.9 14:22: ?95 kg [place] % NaCl 50 43 (4.75-35.6 Medi michel mL 25 mL/hr, Branch (PRECEDEX) rounded to RTU IV 4.75-35.63 infusion mL/hr), IV Infusion, TITRATE, Sedation-R ASS score (0 to -1), Starting on [place] 12/10/22 at 0922
In itiate infusion at 0.2 mcg/kg/hr and titrate by 0.1 mcg/kg/hr every 30 minutes to goal sedation score. Maximum dose = 1.5 mcg/kg/hr. If goal not maintained at maximum allowed dose, contact prescriber .
barium 2022- No [id number] 30mL 30 mL, Uni vers sulfate-NO 12-10 Oral, ity of CHARGE- 14:15: 14:15 ONCE, 1 [place] (VARIBAR 00 :00 dose, On Medical NECTOR) 40 [place] Branch % (w/v) 12/10/22 at oral 0915, suspension Routine 30 mL insulin Yes 25U 25 Units, Unive rs glargine 12-10 Subcutaneo ity o f (LANTUS 14:00: us, Q24H, [place] U-100) 00 First dose Medical injection (after Branch 25 Units last modificati on) on [place]ay[place] 12/10/22 at 0900, Until Discontinu ed, Routine potassium 2022- No 20meq 20 mEq, IV Univers chloride in 12-10 Piggyback, i ty of water (KCL) 13:00: 18:03 Q2H, 2 Compa as 20 mEq/100 00 :02 doses, Medical mL RTU IVPB First dose Br anch 20 mEq on [place]ay[place] 12/10/22 at 0800, Last dose on [place] 12/10/22 at 1000, 100 mL insulin 2022- No Novolog Univer s aspart 12-10 FlexPen ity of U-100 12:49: 00:00 U-100 [place] (NOVOLOG 18 :00 Insulin Medical FLEXPEN aspart 100 Branch U-100 unit/mL (3 INSULIN) mL) 100 unit/mL subcutaneo (3 mL) us injection pregabalin 0 Yes [id number] 100mg Take 1 Univers 100 mg 5-18 capsule by ity of capsule 00:00: mouth in [place] 00 the Medical morning Branch and 1 capsule in the evening. simethicone Yes [id number] 80mg Take 1 Univers 80 mg 5-18 tablet by ity of chewable 00:00: mouth [place] tablet 00 after Medical meals and Branch at bedtime. pregabalin 2023-0 Yes [id number] 100mg Take 1 Univers 100 mg 5-18 capsule by ity of capsule 00:00: mouth in [place] 00 the Medical morning Branch and 1 capsule in the evening. simethicone 2023-0 Yes [id number] 80mg Take 1 Univers 80 mg 5-18 tablet by ity of chewable 00:00: mouth [place] tablet 00 after Medical meals and Branch at bedtime. pregabalin 2023-0 Yes [id number] 100mg Take 1 Univers 100 mg 5-18 capsule by ity of capsule 00:00: mouth in [place] 00 the Medical morning Branch and 1 capsule in the evening. simethicone 2023-0 Yes [id number] 80mg Take 1 Univers 80 mg 5-18 tablet by ity of chewable 00:00: mouth [place] tablet 00 after Medical meals and Branch at bedtime. pregabalin 2023-0 Yes [id number] 100mg Take 1 Univers 100 mg 5-18 capsule by ity of capsule 00:00: mouth in [place] 00 the Medical morning Branch and 1 capsule in the evening. simethicone 2023-0 Yes [id number] 80mg Take 1 Univers 80 mg 5-18 tablet by ity of chewable 00:00: mouth [place] tablet 00 after Medical meals and Branch at bedtime. simethicone 3-0 Yes 80mg 80 mg, Univ ers (GAS RELIEF 5-17 Oral, ity of (SIMETHICON 18:00: PC+HS, [place] E)) 00 First dose Medical chewable on Wed Branch tablet 80 12/09/22 at mg 1300, Until Discontinu ed, Routine ondansetron 2022-0 Yes 4mg 4 mg, Slow Univers (ZOFRAN 5-17 IV Push, ity of (PF)) 17:43: Q6HPRN, [place] injection 4 52 Nausea and Me dical mg Vomiting Branch (N/V), Starting on Wed12/09/22 at 1243
Do ses of ondansetro n 16 mg and above need to be administer ed via IV piggyback. For Dose >=24mg ECG monitoring is advisable.
famotidine 2022-0 Yes 40mg 40 mg, Unive rs (PEPCID) 5-17 Oral, ity of tablet 40 14:00: DAILY, [place] mg 00 First dose Medical (after Branch last modificati on) on Wed12/09/22 at 0900, Until Discontinu ed, Routine insulin 50U 50 Units, Univ ers glargine 12-09 Subcutaneo ity of (LANTUS 14:00: 13:36 [place], Q24H, [place] U-100) 00 :24 First dose Medical injection (after Branch 50 Units last modificati on) on Wed12/09/22 at 0900, Until Discontinu ed, Routine potassium 40meq 40 mEq, IV Univers chloride in 12-09 Infusion, it y of water (KCL) 11:00: 13:25 Q2H ES, 1 [place] 20 mEq/100 00 :00 dose, Medical mL RTU IVPB First dose Br anch 40 mEq on Wed12/09/22 at 0600, 200 mL ondansetron No 4mg 4 mg, Slow Univers (ZOFRAN 12-09 IV Push, ity of (PF)) 08:00: 07:32 ONCE, On [place] injection 4 00 :00 Wed Medical mg 12/09/22 at Branch 0300, For 1 dose
Do ses of ondansetro n 16 mg and above need to be administer ed via IV piggyback. For Dose >=24mg ECG monitoring is advisable.
glycerin/mi No 225mL 225 mL, U nivers neral oil 12-09 Rectal, ity of (AGLO 05:00: 05:22 ONCE, 1 [place] ENEMA) 00 :00 dose, On Medical (COMPOUNDED Wed Branch ) Enem 225 12/09/22 at mL 0000, Routine PARoxetine Yes 40mg 40 mg, Unive rs (PAXIL) 12-09 Oral, QHS, ity of tablet 40 04:00: First dose [place] mg 00 (after Medical last Branch modificati on) on Wed12/08/22 at 2300, Until Discontinu ed, Routine QUEtiapine Yes 50mg 50 mg, Unive rs (SEROQUEL) 5-17 Oral, QHS, ity of tablet 50 04:00: First dose [place] mg 00 on [facility] 12/08/22 at Branch 2300, Until Discontinu ed, Routine LORazepam 2022- No 1mg 1 mg, Slow U nivers (ATIVAN) 12-0917 IV Push, ity of injection 1 00:45: 00:09 ONCE, 1 [place] mg 00 :00 dose, On [facility] 12/08/22 at 1945, Routine ondansetron 2022- No 4mg 4 mg, Slow Univers (ZOFRAN 12-08 IV Push, ity of (PF)) 22:00: 22:08 ONCE, On [place] injection 4 00 :00 [facility] Medical mg 12/08/22 at Branch 1700, For 1 dose
Do ses of ondansetro n 16 mg and above need to be administer ed via IV piggyback. For Dose >=24mg ECG monitoring is advisable.
glycerin/mi 2022- No 225mL 225 mL, U nivers neral oil 12-08 Rectal, ity of (AGLO 18:00: 19:21 ONCE, 1 [place] ENEMA) 00 :00 dose, On [facility] ([facility] ) Enem 225 12/08/22 at mL 1300, Routine polyethylen Yes 17g 17 g, Unive rs e glycol -16 Oral, ity of 3350 powder 16:15: [place] 17 [place] 00 First dose Medical on [facility] 12/08/22 at 1115, Until Discontinu ed, Routine sennosides- 0 Yes 1{tbl} 1 tablet, Univers docusate 5-16 Oral, ity of sodium 16:15: DAILY, [place] (SENOKOT-S) 00 First dose Me dical 8.6-50 mg on [facility] per tablet 12/08/22 at 1 tablet 1115, Until Discontinu ed, Routine morpHINE (4 Yes 4mg 4 mg, Slow Univers mg/mL) 5-16 IV Push, ity of injection 4 15:04: Q4HPRN, [place] mg 13 Starting Medical on [facility] 12/08/22 at 1004, Until Discontinu ed, Routine, Pain (scale 7-10) nicotine 2022-0 Yes 1{patch 1 Patch, Un alexia (NICODERM) 5-16 } Topical, ity o f 7 mg/24 hr 14:00: Administer [place] patch 1 00 over 24 Medical Patch Hours, Branch Q24H, First dose on [facility] 12/08/22 at 0900, Until Discontinu ed, Routine spironolact 0 Yes 25mg 25 mg, Univ ers one 5-16 Oral, ity of (ALDACTONE) 14:00: DAILY, [place] tablet 25 00 First dose Medi michel mg on [facility] 12/08/22 at 0900, Until Discontinu ed, Routine furosemide 0 Yes 40mg 40 mg, Unive rs (LASIX) 5-16 Oral, ity of tablet 40 14:00: DAILY, [place] mg 00 First dose Medical on [facility] 12/08/22 at 0900, Until Discontinu ed, Routine pregabalin 0 Yes 100mg 100 mg, Uni vers (LYRICA) 5-16 Oral, BID, ity o f capsule 100 13:00: First dose [place] mg 00 on [facility] 12/08/22 at Branch 0800, Until Discontinu ed, Routine aspirin 0 Yes 81mg 81 mg, Univers chewable 5-16 Oral, QAM ity of tablet 81 13:00: WITH [place] mg 00 BREAKFAST, Medical First dose Branch on [facility] 12/08/22 at 0800, Until Discontinu ed, Routine famotidine 0 2022- No 20mg 20 mg, Univ ers (PEPCID -16 05-17 Slow IV ity of (PF)) 13:00: 12:59 Push, [place] injection 00 :00 Q12H, 2 Medical 20 mg doses, Branch First dose on 12/08/22 at 0800, Last dose on [facility] 12/08/22 at 2000, Routine levothyroxi 2022-0 Yes 50ug 50 mcg, Uni vers ne 5-16 Oral, ity of (SYNTHROID) 11:00: QAM-0600, [place] tablet 50 00 First dose Medi michel mcg on [facility] 12/08/22 at 0600, Until Discontinu ed ondansetron 2022- No 4mg 4 mg, Slow Univers (ZOFRAN 12-08 05-16 IV Push, ity of (PF)) 03:30: 02:49 ONCE, On [place] injection 4 00 :00 Mon Medical mg 12/07/22 at Branch 2230, For 1 dose
Do ses of ondansetro n 16 mg and above need to be administer ed via IV piggyback. For Dose >=24mg ECG monitoring is advisable.
rosuvastati Yes 10mg 10 mg, Univ ers n (CRESTOR) 5-16 Oral, QHS, it y of tablet 10 02:00: First dose [place] mg 00 on [facility] Medical 12/07/22 at Branch 2100, Until Discontinu ed, Routine LORazepam Yes .5mg 0.5 mg, Unive rs (ATIVAN) -16 Slow IV ity of injection 01:49: Push, [place] 0.5 mg 12 BIDPRN, Medical Starting Branch on Wed12/07/22 at 2049, Until Discontinu ed, Routine, Anxiety dexMEDEtomi 2022- No .2ug/kg 0.2-1.5 Univers dine 400 12-08 05-18 /h mcg/kg/hr ity o f mcg in 0.9 01:48: 13:03 ?93.5 kg [place] % NaCl 100 37 :11 (4.675-35. Med ical mL 0625 Branch (PRECEDEX) mL/hr, RTU IV rounded to infusion 4.68-35.06 mL/hr), IV Infusion, TITRATE, Sedation-R ASS score (0 to -1), Starting on Wed12/07/22 at 2047
In itiate infusion at 0.2 mcg/kg/hr and titrate by 0.1 mcg/kg/hr every 30 minutes to goal sedation score. Maximum dose = 1.5 mcg/kg/hr. If goal not maintained at maximum allowed dose, contact prescriber .
Sliding Yes Subcutaneo Univ ers Scale 5-16 us, Q4H, ity of Insulin - 01:00: First dose [place] Lispro 00 (after Medical (HumaLOG) last Branch modificati on) on Wed12/07/22 at 1999, Until Discontinu ed, Routine cyclobenzap Yes 10mg 10 mg, [facility] ers rine 5-16 Oral, TID, ity of (FLEXERIL) 01:00: First dose [place] tablet 10 00 (after Medical mg last Branch reorder) on Wed12/07/22 at 1999, Until Discontinu ed, Routine heparin Yes 5000U 5,000 Univers (porcine) 5-16 Units, ity of injection 01:00: Subcutaneo [place] 5,000 Units 00 us, Q12H, Med ical First dose Branch on Wed12/07/22 at 1999, Until Discontinu ed, Routine acetylcyste 2022- No 1mL 200 mg (1 Univers ine 12-07 05-17 mL), ity of (MUCOMYST) 23:00: 21:57 Inhalation [place] 200 mg/mL 00 :48 , Q6H, 12 Medic al (20 %) doses, Branch inhalation First dose solution on [facility] 200 mg 12/07/22 at 1800, Last dose on [place] 12/10/22 at 1200, Routine insulin 2022- No 50U 50 Units, [facility] glargine 12-07-16 Subcutaneo ity of (LANTUS 23:00: 13:56 us, Q24H, [place] U-100) 00 :47 First dose Medical injection on [facility] 50 Units 12/07/22 at 1800, Until Discontinu ed, Routine Sliding 2022- No Subcutaneo Uni vers Scale 12-07 05-15 us, TID ity of Insulin - 22:00: 22:05 MEALS+HS, [place] Lispro 00 :29 First dose Medical (HumaLOG) on [facility] Branch 12/07/22 at 1700, Until Discontinu ed, Routine dextrose Yes 250mL 250 mL, IV Un alexia 10% (D10W) 5-15 Infusion, ity of bolus 20:33: PRN - SEE [place] infusion 27 INSTRUCTIO Medic al 250 mL NS, Branch Administer over 60 Minutes, Other, If blood glucose is < or = 70 mg/dL and patient is unable to swallow or has mental status changes, Starting on Wed12/07/22 at 1533
If blood glucose is < or = 70 mg/dL and patient is unable to swallow or has mental status changes (Give glucagon order if patient needs fluid restrictio n): IF IV access available: Dextrose 10%. 1. 125 mL (? bag) of D10W IV infusion - equivalent to 12.5 g dextrose 2. Blood glucose - draw blood glucose 15 minutes after D10W Administra tion. 3. If blood glucose is < 80 mg/dL, repeat.
glucagon 0 Yes 1mg 1 mg, Univers (GLUCAGEN 5-15 Intramuscu ity of DIAGNOSTIC 20:33: lar, PRN, [place] KIT) 24 Starting Medical injection 1 on Wed [place] mg 12/07/22 at 1533, Until Discontinu ed, CT, Blood Glucose < or = 70 mg/dL and patient is NPO, unable to swallow or has mental changes. HYDROcodone 2022-0 Yes 1{tbl} 1 tablet, Univers -acetaminop 5-15 Oral, ity of hen (NORCO) 19:17: Q8HPRN, [place]a [place] 10-325 mg 24 Starting Medica l tablet 1 on Wed [place] tablet 12/07/22 at 1417, Until Discontinu ed, Routine, Pain (scale 4-6) hydrOXYzine 2022-0 Yes 10mg 10 mg, Univ ers (ATARAX) 5-15 Oral, ity of tablet 10 19:17: Q8HPRN, [place] mg 19 Starting Medical on Wed [place] 12/07/22 at 1417, Until Discontinu ed, Routine, Anxiety levalbutero 2022-0 Yes 1.25mg 1.25 mg, Univers l (XOPENEX) 5-15 Inhalation it y of nebulizer 19:00: , TID, [place] solution 00 First dose Medic al 1.25 mg on Wed [place] 12/07/22 at 1400, Until Discontinu ed ipratropium 2022-0 2022- No .5mg 0.5 mg, Un alexia (ATROVENT) 15 05-15 Inhalation it y of 0.02 % 19:00: 21:40 , TID, [place] nebulizer 00 :40 First dose Medi michel solution on Mon Branch 0.5 mg 12/07/22 at 1400, Until Discontinu ed dexMEDEtomi 2022- No .2ug/kg 0.2-1.5 Univers dine 200 12-07 05-16 /h mcg/kg/hr ity o f mcg in 0.9 18:37: 01:48 ?93.5 kg [place] % NaCl 50 00 :48 (4.675-35. Medi michel mL 0625 Branch (PRECEDEX) mL/hr, RTU IV rounded to infusion 4.68-35.06 mL/hr), IV Infusion, TITRATE, Sedation-R ASS score (0 to -1), Starting on Wed12/07/22 at 1337
In itiate infusion at 0.2 mcg/kg/hr and titrate by 0.1 mcg/kg/hr every 30 minutes to goal sedation score. Maximum dose = 1.5 mcg/kg/hr. If goal not maintained at maximum allowed dose, contact prescriber .
levothyroxi 2022- Yes 50ug Take [address] [facility] ne 5-05 06-04 tablet (50 [facility] (SYNTHROID, 00:00: 23:59 mcg total) Medical LEVOTHROID) 00 :00 by mouth Cent er 50 MCG Every tablet morning on an empty stomach for 30 days. levothyroxi 2022- Yes 50ug Take [address] [facility] ne 5-05 06-04 tablet (50 [facility] (SYNTHROID, 00:00: 23:59 mcg total) Medical LEVOTHROID) 00 :00 by mouth Cent er 50 MCG Every tablet morning on an empty stomach for 30 days. levothyroxi 2022- No 50ug Take [address] [facility] ne 5-05 05-04 tablet (50 [facility] (SYNTHROID, 00:00: 00:00 mcg total) Medical LEVOTHROID) 00 :00 by mouth Cent er 50 MCG Every tablet morning on an empty stomach for 30 days. levothyroxi 2022- No 50ug Take [address] [facility] ne 5-05 05-04 tablet (50 [facility] (SYNTHROID, 00:00: 00:00 mcg total) Medical LEVOTHROID) 00 :00 by mouth Cent er 50 MCG Every tablet morning on an empty stomach for 30 days. furosemide 2022- Yes 20mg QD Take [address] [facility] (LASIX) 20 11-26- tablet (20 Yvonne kes MG tablet 00:00: 23:59 mg total) Me dical 00 :00 by mouth Center in the morning for 30 days. PARoxetine 2022- Yes 10mg QD Take [address] [facility] (PAXIL) 10 11-26-03 tablet (10 Yvonne kes MG tablet 00:00: 23:59 mg total) Me dical 00 :00 by mouth Center in the morning for 30 days. rosuvastati 2022- Yes 10mg QD Take [address] [facility] n (CRESTOR) 11-26- tablet (10 L ukes 10 MG 00:00: 23:59 mg total) Medica l tablet 00 :00 by mouth Center in the morning for 30 days. spironolact 2022- Yes 25mg QD Take [address] [facility] one 11-26- tablet (25 [facility] (ALDACTONE) 00:00: 23:59 mg [...] QD Take [address] [facility] (PAXIL) 10 11-26-03 tablet (10 Yvonne kes MG tablet 00:00: [...] 25mg QD Take [address] [facility] one 11-26- tablet (25 [facility] (ALDACTONE) 00:00: 23:59 mg [...] 300mg Q.5D Take [address] [facility] (LYRICA) 11-26-03 capsule [facility] 300 MG 00:00: 23:59 (300 [...] Center in the morning for 30 days. amLODIPine 2022-2022- No 5mg Take 1 Univ ers 5 mg tablet 5-04 05-18 tablet by it y of 00:00: 00:00 mouth. [place] 00 :00 Medical Branch tamsulosin 2022-0 2022- No .4mg Take 1 Univ ers 0.4 mg 24 5-04 05-18 capsule by ity of hr capsule 00:00: 00:00 mouth[place] 00 :[place] Medical Branch tamsulosin 2022-0 2022- No .4mg QD Take [address] [facility] (FLOMAX) 5-04 05-04 capsule [facility] 0.4 mg Cap 00:00: 00:00 (0.4 mg Med ical 24 hr 00 :00 total) by Center capsule mouth in the morning for 30 days. amLODIPine 2022-2022- No 5mg QD Take [address] [facility] [...] in the morning for 30 days. spironolact 2022-0 2022- No 25mg QD Take [address] [facility] one 5-04 05-04 tablet (25 [facility] (ALDACTONE) 00:00: 00:00 mg total) Medical 25 MG 00 :00 by mouth Center tablet in the morning for 30 days. PARoxetine 2022-2022- No 10mg QD Take [address] [facility] (PAXIL) 10 5-04 05-04 tablet (10 Yvonne kes MG tablet 00:00: 00:00 mg total) Me dical 00 :00 by mouth Center in the morning for 30 days. tamsulosin 2022-2022- No .4mg QD Take [address] [facility] (FLOMAX) 5-04 05-04 capsule [facility] 0.4 mg Cap 00:00: 00:00 (0.4 mg Med ical 24 hr 00 :00 total) by Center capsule mouth in the morning for 30 days. amLODIPine 2022-2022- No 5mg QD Take [address] [facility] [...] the morning for 30 days. PARoxetine 2022-2022- No 10mg QD Take [address] [facility] (PAXIL) 10 5-04 05-04 tablet (10 Yvonne kes MG tablet 00:00: 00:00 mg total) Me dical 00 :00 by mouth Center in the morning for 30 days. predniSONE 2022-2022- No [id number] 50mg Take 5 Univers 10 mg 2-16 02-21 tablets by ity of tablet 00:00: 05:59 mouth in [place] 00 :00 the [facility] Branch for 4 days. methylpredn 2022- No [...] :00 dose, On Medica l %) Wed Branch nebulizer 09/09/22 at solution 5 0800, CT mg predniSONE 2022- No [id number] Take 3 Univers 10 mg 08-11 06 tablets by ity of tablet 00:00: 05:59 mouth [place] 00 :00 daily for Medical 3 days, Branch THEN 2 tablets daily for 3 days, THEN 1 tablet daily for 3 days. predniSONE 2022- No [id number] Take 3 Univers 10 mg 08-11 06 [...] Medica l base)/3 mL needed for [facility] nebulizer Wheezing. solution dulaglutide 2022-0 Yes Trulicity U nivers (TRULICITY) 1-16 3 mg/0.5 ity of 3 mg/0.5 mL 17:04: mL [place] PnIj 37 subcutaneo Medical us pen Branch injector metFORMIN 2022-0 Yes 750mg Take 750 Uni vers 500 mg 24 1-16 mg by ity of hr tablet 17:04: mouth [place] 37 daily with Medical breakfast. Branch spironolact 2022-0 Yes 25mg Take 25 mg Univers one 25 mg 1-16 by mouth ity of tablet 17:04: in the [place] [address] morning. Medical Branch Levothyroxi 0 Yes 50ug Take 50 Uni vers ne 100 mcg 1-16 mcg by ity of capsule 17:04: mouth. [place] [address] Medical Branch famotidine 2022-0 Yes 40mg Take 40 mg U nivers 40 mg 1-16 by mouth ity of tablet 17:04: in the [place] [address] morning. Medical Branch magnesium 2022-0 Yes 500mg Take 500 Uni vers gluconate 1-16 mg by ity of (MAG-G 17:04: mouth at [place] ORAL) 37 bedtime. Medical Branch montelukast 0 Yes 10mg Take 10 mg Univers 10 mg 1-16 by mouth. ity of tablet 17:04: [place] [address] Medical Branch HYDROcodone 2022-0 Yes 1{tbl} Take [...] for Bra nch nebulizer Wheezing. solution dulaglutide 2022-0 Yes Trulicity U nivers (TRULICITY) 1-16 3 mg/0.5 ity of 3 mg/0.5 mL 17:04: mL [place] PnIj 37 subcutaneo Medical us pen Branch injector metFORMIN 2022-0 Yes 750mg Take 750 Uni vers 500 mg 24 1-16 mg by ity of hr tablet 17:04: mouth [place] 37 daily with Medical breakfast. Branch spironolact 2022-0 Yes 25mg Take 25 mg Univers one 25 mg 1-16 by mouth ity of tablet 17:04: in the [place] [address] morning. Medical Branch Levothyroxi 2022-0 Yes 50ug Take 50 Uni vers ne 100 mcg 1-16 mcg by ity of capsule 17:04: mouth. [place] [address] Medical Branch famotidine 2022-0 Yes 40mg Take 40 mg U nivers 40 mg 1-16 by mouth ity of tablet 17:04: in the [place] [address] morning. Medical Branch magnesium 2022-0 Yes 500mg Take 500 Uni vers gluconate 1-16 mg by ity of (MAG-G 17:04: mouth at [place] ORAL) 37 bedtime. Medical Branch montelukast 2022-0 Yes 10mg Take 10 mg Univers 10 mg 1-16 by mouth. ity of tablet 17:04: [place] [address] Medical Branch HYDROcodone 2022-0 Yes 1{tbl} Take [...] Medica l base)/3 mL needed for [facility] nebulizer Wheezing. solution dulaglutide 2022-0 Yes Trulicity U nivers (TRULICITY) 1-16 3 mg/0.5 ity of 3 mg/0.5 mL 17:04: mL [place] PnIj 37 subcutaneo Medical pen Branch injector metFORMIN 2022-0 Yes 750mg Take 750 Uni vers 500 mg 24 1-16 mg by ity of hr tablet 17:04: mouth [place] [address] daily with Medical breakfast. Branch spironolact 2022-0 Yes 25mg Take 25 mg Univers one 25 mg 1-16 by mouth ity of tablet 17:04: in the [place] [address] morning. Medical Branch Levothyroxi 2022-0 Yes 50ug Take 50 Uni vers ne 100 mcg 1-16 mcg by ity of capsule 17:04: mouth. [place] [address] Medical Branch famotidine 2022-0 Yes 40mg Take 40 mg U nivers 40 mg -16 by mouth ity of tablet 17:04: in the [place] [address] morning. Medical Branch magnesium 2022-0 Yes 500mg Take 500 Uni vers gluconate 1-16 mg by ity of (MAG-G 17:04: mouth at [place] ORAL) 37 bedtime. Medical Branch montelukast 2022-0 Yes 10mg Take 10 mg Univers 10 mg -16 by mouth. ity of tablet 17:04: [place] [address] Medical Branch ondansetron 2022-0 2023- No 8mg Take 8 mg Univers 8 mg 16 -16 by mouth ity of disintegrat 15:21: [...] Yes 30mg 30 mg, Unive rs (DELTASONE) -16 Oral, ity of tablet 30 14:45: DAILY, [place] mg 00 First dose Medical (after Branch last modificati on) on Wed08/10/22 at 0845, Until Discontinu ed, Routine ondansetron 2023-0 Yes 4mg 4 mg, Slow Univers (ZOFRAN 1-16 IV Push, ity of (PF)) 06:08: Q6HPRN, [place] injection 4 12 Starting Medi michel mg on Mon Branch 08/10/22 at 0008, Until Discontinu ed, Routine, Nausea and Vomiting (N/V) hydrOXYzine 2023-0 Yes [id number] 10mg Take 1 Univers 10 mg 1-16 06 tablet by ity of tablet 00:00: mouth [place] 00 every 8 Medical (eight) Branch hours as needed for Anxiety. hydrOXYzine 2023-0 Yes [id number] 10mg Take 1 Univers 10 mg 1-16 06 tablet by ity of tablet 00:00: mouth [place] 00 every 8 Medical (eight) Branch hours as needed for Anxiety. hydrOXYzine 2023-0 Yes [id number] 10mg Take 1 Univers 10 mg 1-16 06 tablet by ity of tablet 00:00: mouth [place] 00 every 8 Medical (eight) Branch hours as needed for Anxiety. hydrOXYzine 2023-0 Yes [id number] 10mg Take 1 Univers 10 mg 1-16 06 tablet by ity of tablet 00:00: mouth [place] 00 every 8 Medical (eight) Branch hours as needed for Anxiety. pregabalin 2023-0 Yes [id number] 300mg Take 1 Univers 300 mg 1-16 06 capsule by ity of capsule 00:00: mouth in [place] 00 the Medical morning Branch and 1 capsule in the evening. hydrOXYzine 2023-0 Yes [id number] 10mg Take 1 Univers 10 mg 1-16 06 tablet by ity of tablet 00:00: mouth [place] [address] every 8 Medical (eight) Branch hours as needed for Anxiety. pregabalin 2023-0 Yes [id number] 300mg Take 1 Univers 300 mg 1-16 06 capsule by ity of capsule 00:00: mouth in [place] 00 the Medical morning Branch and 1 capsule in the evening. hydrOXYzine 2023-0 Yes [id number] 10mg Take 1 Univers 10 mg 1-16 06 tablet by ity of tablet 00:00: mouth [place] 00 every 8 Medical (eight) Branch hours as needed for Anxiety. pregabalin 2023-0 Yes [id number] 300mg Take 1 Univers 300 mg 1-16 06 capsule by ity of capsule 00:00: mouth in [place] 00 the Medical morning Branch and 1 capsule in the evening. hydrOXYzine 2022- No [id number] 10mg Take 1 Univers 10 mg 08-10 06 tablet by ity of tablet 00:00: 00:00 mouth [place] 00 :00 every 8 Medical (eight) Branch hours as needed for Anxiety. pregabalin 2022- No [id number] 300mg Take 1 Univers 300 mg 08-1018 06 capsule by ity of capsule 00:00: 00:00 mouth in [place] 00 :00 the Medical morning Branch and 1 capsule [...] Until Discontinu ed, Routine sulfur 2022- No [id number] 5mL 5 mL, Unive rs hexafluorid 08-07 Intravenou i ty of e microsphr 17:00: 17:00 s, ONCE, 1 [place] (LUMASON) 00 :00 dose, On Medica l injection 5 Wed Branch mL 08/07/22 at 1100, Routine
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 medication : STELLA IVORY pantoprazol [...] 500mL at 100 Univ ers (NS) bolus 08-0713 mL/hr, 500 it y of infusion 09:00: 08:13 mL, IV [place] 500 mL 00 :32 Infusion, Medical ONCE, 1 Branch dose, On Wed08/07/22 at 0300, STAT midodrine 2022- No 5mg 5 mg, Univer s (PROAMATINE 08-07 Oral, ity of ) tablet 5 06:30: 05:50 ONCE, 1 Compa as mg 00 :00 dose, On Medical Wed Branch 08/07/22 at 0030, Routine midodrine 2022- [...] Until Discontinu ed, CT iopamidol 2022- No [id number] 90mL 90 mL, Univers (ISOVUE 08-06 Intravenou ity o f 370-500 mL) 16:45: 17:00 s, ONCE, 1 [place] injection 00 :00 dose, On Medica l 90 mL [place] Branch 08/06/22 at 1100, Routine insulin Yes 25U 25 Units, Unive rs glargine 08-06 Subcutaneo ity o f (LANTUS 15:00: us, DAILY, [place] U-100) 00 First dose Medical injection on [facility] Branch 25 Units 08/06/22 at 0900, Until Discontinu ed, Routine NaCl 0.9% No 500mL at 999 Univ ers (NS) bolus 08-06 mL/hr, 500 it y of infusion 14:00: 13:40 mL, IV [place] 500 mL 00 :02 Piggyback, Medical ONCE, 1 Branch dose, On [facility] 08/06/22 at 0800, STAT midodrine 2022- No 10mg 10 mg, Unive rs (PROAMATINE 08-06 Oral, ity of ) tablet 10 14:00: 13:28 ONCE, 1 [place] mg 00 :00 dose, On Medical [facility] Branch 08/06/22 at 0800, CT insulin 0 2022- No 15U 15 Units, Univ ers glargine 08-06 Subcutaneo ity of (LANTUS 05:30: 07:08 us, ONCE, [place] U-100) 00 :00 1 dose, On Medical injection [facility] Branch 15 Units 08/05/22 at 2330, CT pregabalin 0 Yes 300mg 300 mg, Uni vers (LYRICA) 12 Oral, BID, ity o f capsule 300 04:45: First dose [place] mg 00 on [facility] 08/05/22 at Branch 2245, Until Discontinu ed, Routine QUEtiapine 0 Yes 75mg 75 mg, Unive rs (SEROQUEL) 12 Oral, QHS, ity of tablet 75 04:45: First dose [place] mg 00 on [facility] 08/05/22 at Branch 2245, Until Discontinu ed, Routine acetaminoph Yes 1000mg 1,000 mg, Univers en 12 Oral, ity of (TYLENOL) 04:40: BIDPRN, [place] tablet 20 Starting Medical 1,000 mg on [facility] Branch 08/05/22 at 2240, Until Discontinu ed, Routine, Pain (scale 1-3) ceFEPIme 0 2022- No 1000mg 1,000 mg, U nivers (MAXIPIME) 08-05 IV ity of 1,000 mg in 22:00: 21:59 [facility], [place] NaCl 0.9% 00 :00 Q8H ABX, Medica [...] No 20mg 20 mg, Univ ers (LASIX) 08-0512 Slow IV ity of injection 15:45: 13:07 [...] ed metoprolol 2022- No 25mg 25 mg, [facility] ers succinate 08-05 Oral, ity of XL [...] Discontinu ed, Routine, Pain (scale 7-10) HYDROcodone 0 Yes 1{tbl} 1 tablet, Univers -acetaminop 08-05 Oral, ity of hen (NORCO) 07:38: Q8HPRN, [place] 10-325 mg 17 Starting Medica l tablet 1 on Wed Branch tablet 08/05/22 at 0138, Until Discontinu ed, Routine, Pain (scale 4-6) LORazepam 2022-0 Yes .5mg 0.5 mg, Unive rs (ATIVAN) 11 Slow IV ity of injection 07:35: Push, [...] Inhalation ity of (DUONEB) 07:30: , Q4H, [place] 0.5 mg-3 00 First dose Medic al mg(2.5 mg on Wed Branch base)/3 mL 08/05/22 at nebulizer 0130, solution 3 Until mL Discontinu ed, Routine methylPREDN 2022-0 2022- No 40mg 40 mg, Uni vers ISolone sod 11 0112 Intravenou i ty of succ 07:30: 15:21 s, Q8H, [place] (SOLU-MEDRO 00 :13 First dose Me dical L (PF)) on Wed Branch injection 08/05/22 at 40 mg 0130, Until Discontinu ed, 1 mL glucagon 2022-0 Yes 1mg 1 mg, Univers (GLUCAGEN 11 [...] swallow or has mental status changes. methylpredn 2022-1 Yes 125mg 125 mg, Un alexia isolone sod 1-11 Intravenou it y of succ 06:00: s, Q6H, [place] (SOLU-MEDRO 00 First dose Me dical L) on Fri Branch injection 06/05/22 125 mg at 0000, Until Discontinu ed, Routine iopamidol 2021-07- No [id number] 75mL 75 mL, Univers (ISOVUE 0-19 10-19 [...] 04/28/22 at 2315, STAT amoxicillin 2021-07 Yes [id number] 500mg Take 1 Univers -pot 0-05 tablet by ity of clavulanate 00:00: mouth [place] 500 mg 00 every 12 Medical 500-125 mg (twelve) Branc h tablet hours. amoxicillin 2021-07 Yes [id number] 500mg Take 1 Univers -pot 0-05 tablet by ity of clavulanate 00:00: mouth [place] 500 mg 00 every 12 Medical 500-125 mg (twelve) Branc h tablet hours. amoxicillin 2021-07 Yes [id number] 500mg Take 1 Univers -pot 0-05 tablet by ity of clavulanate 00:00: mouth [place] 500 mg 00 every 12 Medical 500-125 mg (twelve) Branc h tablet hours. amoxicillin 2021-07 Yes [id number] 500mg Take 1 Univers -pot 0-05 tablet by ity of clavulanate 00:00: mouth [place] 500 mg 00 every 12 Medical 500-125 mg (twelve) Branc h tablet hours. amoxicillin 2021-07- No [id number] 500mg Take 1 Univers -pot 0-05 01-16 [...] Medica l base)/3 mL needed for [facility] nebulizer Wheezing. solution dulaglutide Yes Trulicity [...] Medica l base)/3 mL needed for [facility] nebulizer Wheezing. solution dulaglutide Yes Trulicity [...] Medica l base)/3 mL needed for [facility] nebulizer Wheezing. solution dulaglutide 0 Yes [...] Medica l base)/3 mL needed for [facility] nebulizer Wheezing. solution dulaglutide Yes Trulicity [...] Take 50 Uni vers ne 100 mcg 805 mcg by ity of capsule 17:58: mouth. [place] 14 Medical Branch semaglutide 2021- No inject Uni vers (OZEMPIC) 02-27 under the ity of 0.25 mg or 15:36: 00:00 skin. [place] 0.5 mg(2 41 :00 Medical mg/1.5 mL) Branch PnIj famotidine 2021- No 40mg Take 40 mg Univers 40 mg 02-27 by mouth ity of tablet 15:36: 00:00 in the [place] 41 :00 morning. Medical Branch melatonin Yes [...] 02-25 Oral, ity of (TYLENOL) 08:19: Q6HPRN, [place] tablet 650 00 Starting Medic al mg on Wed Branch 02/25/22 at 0319, Until Discontinu ed, Routine, Pain (scale 1-3) melatonin No 6mg 6 mg, Univer s (MELATIN) 02-25 Oral, ONCE ity of tablet 6 mg 07:53: 08:06 NOW, 1 [place] 00 :00 dose, On Wed02/25/22 Branch at 0300, Routine gabapentin No 300mg 300 mg, Un alexia (NEURONTIN) 02-25 Oral, ity of capsule 300 06:15: 05:24 ONCE, 1 [place] mg 00 :00 dose, On Wed02/25/22 Branch at 0115, Routine lactated 2021- No 500mL at 999 [facility] [place] [facility] rs ringers IV 02-25 mL/hr, 500 it y of infusion 05:00: 06:00 mL, [place] 500 mL 00 :00 Intravenou Medical s, ONCE, 1 Branch dose, On Wed02/25/22 at 0000, Routine melatonin No 6mg 6 mg, Univer s (MELATIN) 02-25 Oral, ONCE ity of tablet 6 mg 03:15: 02:44 NOW, 1 Compa as 00 :00 dose, On Wed02/24/22 Branch at 2215, Routine ondansetron No [...] ed lactated 2021- No 500mL at 999 [facility] [place] [facility] rs ringers IV 02-24 08-03 mL/hr, 500 it y of infusion 17:30: 03:57 mL, [place] 500 mL 00 :22 Intravenou Medical s, ONCE, 1 Branch dose, On Wed02/24/22 at 1230, Routine lactated 2021- No 500mL at 999 [facility] [place] [facility] rs ringers IV 02-2402 mL/hr, 500 it y of infusion 17:30: 18:42 mL, [place] 500 mL 00 :07 Intravenou Medical s, ONCE, 1 Branch dose, On Wed02/24/22 at 1230, Routine polyethylen Yes 17g 17 g, [facility] [place] [facility] rs e glycol 02-24 Oral, BID, ity o f 3350 powder 13:00: First dose [place] 17 g 00 on Wed02/24/22 at [place] 0800, Until Discontinu ed, Routine HYDROcodone Yes 1{tbl} 1 tablet, Univers -acetaminop 02-24 Oral, ity of hen (NORCO 09:45: Q6HPRN, [place] 5) 5-325 mg 00 Starting Medi michel tablet 1 on Wed [place] tablet 02/24/22 at 0445, Until Discontinu ed, Routine, Pain (scale 7-10) ketorolac 2021- No 30mg 30 mg, [facility] [place] [facility] rs (TORADOL) 02-24 Slow IV ity of injection 09:45: 09:01 Push, [place] 30 mg 00 :00 ONCE, 1 Medical dose, On [place] Wed02/24/22 at 0445, Routine NORepinephr 2021- No [...] time.
lactated 2021- No 1000mL at 999 [facility] ers ringers IV 02-24 mL/hr, ity of infusion 03:15: 02:10 1,000 mL, Compa as 1,000 mL 00 :00 Intravenou Medic al s, ONCE, 1 Branch dose, On Wed02/23/22 at 2215, Routine sennosides Yes 8.6mg 8.6 mg, Uni vers (SENOKOT) 02-23 Oral, ity of tablet 8.6 22:45: DAILY, [place] mg 00 First dose Medical on Wed [place] 02/23/22 at 1745, Until Discontinu ed, Routine simethicone Yes 80mg 80 mg, [facility] ers (GAS RELIEF 02-23 Oral, ity of (SIMETHICON 14:00: PC+HS, [place] E)) 00 First dose Medical chewable on [facility] tablet 80 02/23/22 at mg 0900, Until Discontinu ed, Routine metoprolol 2021- No 25mg 25 mg, [facility] ers succinate 02-23 Oral, BID, ity of XL (TOPROL 13:00: 03:28 First dose [place] XL) tablet 00 :19 on [facility] Medical 25 mg 02/23/22 at Branch 0800, Until Discontinu ed, Routine melatonin 2021- No 6mg 6 mg, Univer s (MELATIN) 02-23 Oral, ONCE ity of tablet 6 mg 08:15: 07:18 NOW, 1 Compa as 00 :00 dose, On Medical [facility] 02/23/22 Branch at 0315, Routine hydrOXYzine 2021- No 10mg 10 mg, Uni vers (ATARAX) 02-23 Oral, ity of tablet 10 01:58: 03:43 Q8HPRN, [place] mg 32 :01 Starting Medical on [place] Branch 02/22/22 at 2058, Until Wed02/23/22 at 2243, Routine, Anxiety ondansetron 2021- No [...] as mg 22 :05 Starting Medical on [facility] 02/22/22 at 1714, Until Wed02/24/22 at 0444, Routine, Anxiety pregabalin Yes 300mg 300 mg, Uni vers (LYRICA) 02-22 Oral, BID, ity o f capsule 300 19:30: First dose [place] mg 00 (after Medical last Branch modificati on) on [place] 02/22/22 at 1430, Until Discontinu ed, Routine trimethoben Yes 200mg 200 mg, Un alexia zamide 02-22 Intramuscu ity of (TIGAN) 17:45: lar, [place] injection 43 Q6HPRN, Medical 200 mg Starting Branch on [place] 02/22/22 at 1245, Until Discontinu ed, Routine, Nausea and Vomiting (N/V) levoFLOXaci 2021- No 750mg 750 mg, U nivers n 02-22 Oral, Q24H ity of (LEVAQUIN) 17:45: 18:17 ABX, 3 [place] tablet 750 00 :00 doses, Medical mg First dose Branch on [place] 02/22/22 at 1245, Last dose on Wed02/24/22 [...] 1 last Branch tablet modificati on) on [place] 02/22/22 at 1200, Until Discontinu ed, Routine acetaminoph 2021- No 650mg 650 mg, U nivers en 02-22 0803 Oral, ity of (TYLENOL) 14:35: 08:19 Q6HPRN, [place] tablet 650 20 :38 Starting Medic al mg on [place] Branch 02/22/22 at 0935, Until 02/25/22 at 0319, Routine, Pain (scale 1-3) ceFEPIme No 2000mg 2,000 mg, U nivers (MAXIPIME) 02-22 IV ity of 2,000 mg in 13:15: 14:10 Piggyback, [place] NaCl 0.9% 00 :00 ONCE, 1 Medical (NS) 50 mL dose, On Branc h MINI-BAG [place] 02/22/22 at 0815, Administer over 30 Minutes, 50 mL
Reas on for Anti-Infec tive: Documented Infection< br>Documen alden Infection Site: Respirator y
Du ration of Therapy: 10 days acetaminoph 2021- No 500mg 500 mg, U nivers en 02-22 Oral, ONCE ity of (TYLENOL) 10:30: 09:34 NOW, 1 [place] tablet 500 00 :00 dose, On Medic al mg [facility] 02/22/22 at 0530, Routine HYDROcodone 2021- No [...] [place] mg 00 First dose Medical on [facility] Branch 02/21/22 at 0900, Until Discontinu ed, Routine aspirin Yes 81mg 81 mg, [facility] chewable 02-21 Oral, ity of tablet 81 14:00: DAILY, [place] mg 00 First dose Medical on [facility] Branch 02/21/22 at 0900, Until Discontinu ed, Routine spironolact No 25mg 25 mg, Uni vers one 02-21 Oral, ity of (ALDACTONE) 14:00: 03:59 DAILY, Compa as tablet 25 00 :42 First dose Medi michel mg on [facility] Branch 02/21/22 at 0900, Until Discontinu ed, Routine furosemide 2021- No 40mg 40 mg, Univ ers (LASIX) 02-21 Oral, ity of tablet 40 14:00: 03:28 DAILY, [place] mg 00 :19 First dose Medical on [facility] Branch 02/21/22 at 0900, Until Discontinu ed, Routine predniSONE 2021- No 40mg 40 mg, Univ ers (DELTASONE) 02-21 Oral, ity of tablet 40 14:00: 13:46 DAILY, [place] mg 00 :51 First dose Medical on [facility] Branch 02/21/22 at 0900, Until Discontinu ed, Routine HYDROcodone 2021- No 1{tbl} 1 tablet, Univers -acetaminop 02-21 Oral, ity of hen (NORCO 12:00: 11:09 ONCE, 1 Compa as 5) 5-325 mg 00 :00 dose, On Medi michel tablet 1 Sat Branch tablet 02/21/22 at 0700, Routine albuterol Yes 2.5mg 2.5 mg, Univ ers (PROVENTIL) 7 Inhalation it y of 2.5 mg /3 03:00: , Q8H, [place] mL (0.083 00 First dose Medi michel %) on Wed Branch nebulizer 02/20/22 at solution 2200, 2.5 mg Until Discontinu ed, Routine QUEtiapine Yes 50mg 50 mg, Unive rs (SEROQUEL) 7 Oral, QHS, ity of tablet 50 02:30: First dose [place] mg 00 on Wed Medical 02/20/22 at Branch 2130, Until Discontinu ed, Routine Sliding Yes Subcutaneo Univ ers Scale 730 us, TID ity of Insulin - 02:00: [...] of 2,000 mg in 01:00: 02:37 Piggyback, [place] NaCl 0.9% 00 :00 ONCE, 1 Medical [...] at 1999, Until Discontinu ed, Routine sodium 2021-0 2021- No 4mL 4 mL, Univers chloride [...] by ity of tablet 00:00: mouth in [place] 00 the Medical morning. Branch furosemide 2021-0 Yes 40mg Take 1 Unive rs 40 mg 7-27 tablet by ity of tablet 00:00: mouth in [place] 00 the Medical morning. Branch furosemide 2022-0 Yes 40mg Take 1 Unive rs 40 mg 7-27 tablet by ity of tablet 00:00: mouth in [place] 00 the Medical morning. Branch furosemide 2022-0 Yes 40mg Take 1 Unive rs 40 mg 7-27 tablet by ity of tablet 00:00: mouth in [place] 00 the Medical morning. Branch furosemide 2022-0 Yes 40mg Take 1 Unive rs 40 mg 7-27 tablet by ity of tablet 00:00: mouth in [place] the Medical morning. Branch furosemide 2022-0 Yes 40mg Take 1 Unive rs 40 mg 7-27 tablet by ity of tablet 00:00: mouth in [place] the Medical morning. Branch furosemide 2022-0 Yes 40mg Take 1 Unive rs 40 mg 7-27 tablet by ity of tablet 00:00: mouth in [place] the Medical morning. Branch furosemide 2022-0 Yes 40mg Take 1 Unive rs 40 mg 7-27 tablet by ity of tablet 00:00: mouth in [place] the Medical morning. Branch furosemide 2022-0 Yes 40mg Take 1 Unive rs 40 mg 7-27 tablet by ity of tablet 00:00: mouth in [place] the Medical morning. Branch furosemide 2022-0 Yes 40mg Take 1 Unive rs 40 mg 7-27 tablet by ity of tablet 00:00: mouth in [place] the Medical morning. Branch furosemide 2022-0 Yes 40mg Take 1 Unive rs 40 mg 7-27 tablet by ity of tablet 00:00: mouth in [place] the Medical morning. Branch furosemide 2022-0 Yes 40mg Take 1 Unive rs 40 mg 7-27 tablet by ity of tablet 00:00: mouth in [place] 00 the Medical morning. Branch furosemide 2022-0 Yes 40mg Take 1 Unive rs 40 mg 7-27 tablet by ity of tablet 00:00: mouth in [place] 00 the Medical morning. Branch furosemide 2022-0 Yes 40mg Take 1 Unive rs 40 mg 7-27 tablet by ity of tablet 00:00: mouth in [place] 00 the Medical morning. Branch furosemide 2022-0 Yes 40mg Take 1 Unive rs 40 mg 7-27 tablet by ity of tablet 00:00: mouth in [place] 00 the Medical morning. Branch HYDROcodone 2022-0 Yes 1{tbl} Take 1 [...] Medica l base)/3 mL needed for [facility] nebulizer Wheezing. solution semaglutide Yes inject [...] ipratropium Yes 1{ampul 1 Ampule Univers -albuterol 02-17 e} every 4 ity of 0.5 mg-3 18:10: (four) [place] mg(2.5 mg 37 hours as Medica l base)/3 mL needed for [facility] nebulizer Wheezing. solution semaglutide Yes inject Univ ers (OZEMPIC) 02-17 under the ity o f 0.25 mg or 18:10: skin. [place] 0.5 mg(2 37 Medical mg/1.5 mL) Branch PnIj dulaglutide Yes Trulicity U nivers (TRULICITY) 02-17 3 mg/0.5 ity of 3 mg/0.5 mL 18:10: mL [place] PnIj 37 subcutaneo Medical us pen Branch injector metFORMIN 0 Yes 750mg Take 750 Uni vers 500 mg 24 7-26 mg by ity of hr tablet 18:10: mouth [place] 37 daily with Medical breakfast. Branch spironolact Yes 25mg Take 25 mg Univers one 25 mg -26 by mouth ity of tablet 18:10: in the [place] [id number] morning Medical and 25 mg Branch at noon and 25 mg in the evening. pregabalin 0 Yes 300mg 300 mg, Uni vers (LYRICA) 02-17 Oral, BID, ity o f capsule 300 14:30: First dose [place] mg 00 (after Medical last Branch modificati on) on Wed02/17/22 at 0930, Until Discontinu ed, Routine furosemide 0 Yes 40mg 40 mg, Unive rs (LASIX) 02-17 Oral, ity of tablet 40 14:00: DAILY, [place] mg 00 First dose Medical (after Branch last modificati on) on Wed02/17/22 at 0900, Until Discontinu ed, Routine ceFEPIme 0 Yes 2000mg 2,000 mg, Un alexia (MAXIPIME) 02-17 IV ity of 2,000 mg in 03:30: Piggyback, [place] NaCl 0.9% 00 Q12H ABX, Medic al (NS) 50 mL First dose Bra nch piggyback on Wed02/16/22 at 2230, Until Discontinu [...] 2000mg 2,000 mg, U nivers (MAXIPIME) 02-16 07-25 IV ity of 2,000 mg in 15:30: 15:30 Piggyback, [place] NaCl 0.9% 00 :00 ONCE, 1 Medical (NS) 50 mL dose, On Branc h piggyback Wed02/16/22 at 1030, Administer over 30 Minutes, 50 mL
Reas on for Anti-Infec tive: Documented Infection< br>Documen alden Infection Site: Respirator y
Du ration of Therapy: 7 days lidocaine 2022-0 2022- No 5mL 5 mL, Univer s 1% (PF) 02-16 Subcutaneo ity o f (XYLOCAINE) 14:45: 22:45 us, ONCE, [place] injection 5 00 :00 1 dose, On Me dical mL Wed [place] 02/16/22 at 0945, Routine NaCl 0.9% Yes 10mL 10 mL, Univer s (NS) 02-16 Slow IV ity of injection 14:36: Push, PRN, [place] 10 mL 37 Starting Medical on Wed Branch 02/16/22 at 0936, Until Discontinu ed, Routine, line maintenanc e furosemide 2021- No 40mg 40 mg, Univ ers (LASIX) 02-16 Oral, BID, ity o f tablet 40 01:00: 12:21 First dose [place] mg 00 :21 on [place] Medical 02/15/22 at Branch 2000, Until Discontinu ed, Routine insulin Yes 24U 24 Units, Unive rs glargine 02-15 Subcutaneo ity o f (LANTUS 16:53: us, Q24H, [place] U-100) 00 First dose Medical injection (after Branch 24 Units last modificati on) on [place] 02/15/22 at 1153, Until Discontinu ed, Routine insulin Yes 5U 5 Units, Univer s lispro 02-14 Subcutaneo ity of (human) 22:00: us, TID [place] (HumaLOG 00 MEALS, Medical U-100) First dose Branch injection 5 on [facility] Units 02/14/22 at 1700, Until Discontinu ed, Routine Sliding 2021- No Subcutaneo Uni vers Scale 02-14 us, Q4H, ity of Insulin - 21:00: 20:49 First dose [place] lispro 00 :46 (after Medical (humaLOG) + last Branch Fsbg modificati Testing on) on [facility] 02/14/22 at 1600, Until Discontinu ed, Routine insulin 2021- No 3U 3 Units, Unive rs glargine 02-14 Subcutaneo ity of (LANTUS 17:58: 19:34 [facility], [facility] 00 :00 1 dose, On [...] at 30 Univer s IV infusion 02-13 07-22 mL/hr, IV it y of 17:55: 22:35 Infusion, [place] 58 :45 TITRATE, Medical Starting Branch on [...] Oral, ity of XL (TOPROL 14:00: DAILY, [place] XL) tablet 00 First dose Med ical [...] 02-13 Oral, ity of (TYLENOL) 11:54: Q4HPRN, [place] tablet 650 52 Starting Medic al mg [...] at 0000, Until Discontinu ed, Routine QUEtiapine 0 Yes 100mg 100 mg, Uni vers (SEROQUEL) 02-13 Oral, QHS, ity of tablet 100 02:00: First dose [place] mg 00 on [place] [facility] 02/12/22 at Branch 2100, Until Discontinu ed, Routine rosuvastati Yes 10mg 10 mg, [facility] ers n (CRESTOR) 02-13 Oral, QHS, it y of tablet 10 02:00: First dose [place] mg 00 on [place] [facility] 02/12/22 at Branch 2100, Until Discontinu ed, Routine pregabalin 2021- No 300mg 300 mg, Un alexia (LYRICA) 02-13 Oral, QHS, ity of capsule 300 02:00: 13:54 First dose [place] mg 00 :07 on [place] Medical 02/12/22 at Branch 2100, Until Discontinu ed, Routine furosemide No 20mg 20 mg, [facility] ers (LASIX) 02-13 Slow IV ity of [...] IV Push, ity of (PF)) 21:36: Q6HPRN, [place] injection 4 19 Nausea and Me dical mg Vomiting Branch (N/V), Starting on Wed02/12/22 at 1636
Do ses of ondansetro n 16 mg and above need to be administer ed via IV piggyback. For Dose >=24mg ECG monitoring is advisable.
ipratropium Yes 3mL 3 mL, Unive rs -albuteroL 02-12 Inhalation ity of (DUONEB) 19:00: , Q6H, [place] 0.5 mg-3 00 First dose Medic al [...] of 1,000 mg in 09:15: 14:35 Piggyback, [place] NaCl 0.9% 00 :41 Q24H ABX, Medic al (NS) 50 mL First dose Bra nch MINI-BAG on [place] 02/12/22 at 0415, Until Discontinu ed, Administer over 30 Minutes, 50 mL
Reas on for Anti-Infec tive: Documented Infection< br>Documen alden Infection Site: Respirator y
Durat ion of Therapy: 7 days albuterol Yes 2.5mg 2.5 mg, Univ ers (PROVENTIL) 02-12 Inhalation it y of 2.5 mg /3 08:45: , Q4HPRN, Compa as mL (0.083 01 Starting Medica l %) on [facility] nebulizer 02/12/22 at solution 0345, 2.5 mg Until Discontinu ed, Routine, Shortness of Breath, Wheezing NaCl 0.45% 2021- No 1000mL [facility] ers (1/2NS) 02-12 ity of 1000 mL + 08:15: 22:29 [place] KCL 20 mEq 00 :30 [facility] azithromyci 2021- No 500mg 500 mg, IV Univers n 02-12 Piggyback, ity of (ZITHROMAX) 08:09: 14:35 Q24H ABX, [place] 500 mg in 00 :41 First dose Medi michel NaCl 0.9% on [facility] Branch (NS) 250 mL 02/12/22 at VIAL-MATE [...] mg 00 :00 dose, On Medical Wed [place] 02/11/22 at 2215, CT insulin 2021- No 10U 10 Units, Univ ers regular 02-12 Slow IV ity of human 03:15: 04:13 Push, [place] (HUMULIN R) 00 :00 ONCE, 1 Medic al injection dose, On Branch 10 Units [facility] 02/11/22 at 2215, STAT iopamidol 2021- No [id number] 60mL 60 mL, Univers (ISOVUE 02-12 Intravenou ity o f 370-500 mL) 02:30: 02:30 s, ONCE, 1 [place] injection 00 :00 dose, On Medica l [address] [facility] 02/11/22 at 2145, Routine predniSONE Yes [id number] 50mg Take 1 Univers 50 mg 7-10 00 tablet by ity of tablet 00:00: mouth [place] 00 daily. [facility] aspirin 81 Yes [id number] 81mg Take 1 Univers mg chewable 7-10 00 tablet by ity of tablet 00:00: mouth [place] 00 daily with Medical breakfast. Branch predniSONE Yes [id number] 50mg Take 1 Univers 50 mg 7-10 00 tablet by ity of tablet 00:00: mouth [place] 00 daily. [facility] aspirin 81 0 Yes [id number] 81mg Take 1 Univers mg chewable 7-10 00 tablet by ity of tablet 00:00: mouth [place] 00 daily with Medical breakfast. Branch aspirin 81 0 Yes [id number] 81mg Take 1 Univers mg chewable 7-10 00 tablet by ity of tablet 00:00: mouth [place] 00 daily with Medical breakfast. Branch aspirin 81 Yes [id number] 81mg Take 1 Univers mg chewable 7-10 00 tablet by ity of tablet 00:00: mouth [place] 00 daily with Medical breakfast. Branch aspirin 81 2021-0 Yes [id number] 81mg Take 1 Univers mg chewable 7-10 00 tablet by ity of tablet 00:00: mouth [place] 00 daily with Medical breakfast. Branch aspirin 81 2021-0 Yes [id number] 81mg Take 1 Univers mg chewable 7-10 00 tablet by ity of tablet 00:00: mouth [place] 00 daily with Medical breakfast. Branch aspirin 81 2021-0 Yes [id number] 81mg Take 1 Univers mg chewable 7-10 00 tablet by ity of tablet 00:00: mouth [place] 00 daily with Medical breakfast. Branch aspirin 81 2021-0 Yes [id number] 81mg Take 1 Univers mg chewable 7-10 00 tablet by ity of tablet 00:00: mouth [place] 00 daily with Medical breakfast. Branch aspirin 81 2021-0 Yes [id number] 81mg Take 1 Univers mg chewable 7-10 00 tablet by ity of tablet 00:00: mouth [place] 00 daily with Medical breakfast. Branch aspirin 81 2021-0 Yes [id number] 81mg Take 1 Univers mg chewable 7-10 00 tablet by ity of tablet 00:00: mouth [place] 00 daily with Medical breakfast. Branch aspirin 81 2021-0 Yes [id number] 81mg Take 1 Univers mg chewable 7-10 00 tablet by ity of tablet 00:00: mouth [place] 00 daily with Medical breakfast. Branch aspirin 81 2021-0 Yes [id number] 81mg Take 1 Univers mg chewable 7-10 00 tablet by ity of tablet 00:00: mouth [place] 00 daily with Medical breakfast. Branch aspirin 81 2021-0 Yes [id number] 81mg Take 1 Univers mg chewable 7-10 00 tablet by ity of tablet 00:00: mouth [place] 00 daily with Medical breakfast. Branch aspirin 81 2021-0 Yes [id number] 81mg Take 1 Univers mg chewable 7-10 00 tablet by ity of tablet 00:00: mouth [place] 00 daily with Medical breakfast. Branch aspirin 81 2021-0 Yes [id number] 81mg Take 1 Univers mg chewable 7-10 00 tablet by ity of tablet 00:00: mouth [place] 00 daily with Medical breakfast. Branch aspirin 81 2021-0 Yes [id number] 81mg Take 1 Univers mg chewable 02-01 00 tablet by ity of tablet 00:00: mouth [place] 00 daily with Medical breakfast. Branch aspirin 81 0 Yes [id number] 81mg Take 1 Univers mg chewable - 00 tablet by ity of tablet 00:00: mouth [place] 00 daily with Medical breakfast. Branch predniSONE 2021- No [id number] 50mg Take 1 Univers 50 mg 7-02-17 tablet by ity of tablet 00:00: 00:00 mouth [place] 00 :00 daily. Medical Branch aspirin 81 2021- No [id number] 81mg Take 1 Univers mg chewable 7-01-31 tablet by it y of tablet 00:00: 00:00 mouth [place] 00 :00 daily with Medical breakfast. Branch predniSONE 2021- No [id number] 50mg Take 1 Univers 50 mg 7-01-31 tablet by ity of tablet 00:00: 00:00 [...] ipratropium Yes 1{ampul 1 Ampule Univers -albuterol 01-31 [...] breakfast. Branch Potassium 2021- No Take by [facility] ers Gluconate 01-31 mouth ity of 595 mg (99 11:48: 00:00 weekly. Compa as mg) Tab 08 :00 Medical Branch spironolact 2021- No 25mg Take 25 mg Univers one 25 mg 01-31 by mouth 2 ity of tablet 11:48: 00:00 (two) [place] 08 :00 times Medical daily. Branch LORazepam 2021- No .5mg 0.5 mg, [facility] ers (ATIVAN) 01-31 Oral, ity of tablet 0.5 02:45: 01:48 ONCE, 1 [place] mg 00 :00 dose, On Medical Wed01/30/22 Branch at 2145, Routine furosemide Yes 40mg 40 mg, Unive rs (LASIX) 01-31 Oral, BID, ity of tablet 40 01:00: First dose [place] mg 00 on Wed Medical 01/30/22 at Branch 2000, Until Discontinu ed, Routine metoprolol Yes [id number] 25mg Take 1 Univers succinate 01-31 tablet by ity o f XL 25 mg 24 00:00: mouth 2 Compa as hr tablet 00 (two) Medical times Branch daily. metoprolol Yes [id number] 25mg Take 1 Univers succinate 01-31 tablet by ity o f XL 25 mg 24 00:00: mouth 2 Compa as hr tablet 00 (two) Medical times Branch daily. metoprolol Yes [id number] 25mg Take 1 Univers succinate 01-31 tablet by ity o f XL 25 mg 24 00:00: mouth 2 [place] as hr tablet 00 (two) Medical times Branch daily. metoprolol Yes [id number] 25mg Take 1 Univers succinate 01-31 tablet by ity o f XL 25 mg 24 00:00: mouth 2 Compa as hr tablet 00 (two) Medical times Branch daily. furosemide 2021- No [id number] 40mg Take 1 Univers 40 mg 01-31 tablet by ity of tablet 00:00: 04:59 mouth 2 [place] 00 :00 (two) Medical times Branch daily for 30 days. furosemide 2021- No [id number] 40mg Take 1 Univers 40 mg 01-31 tablet by ity of tablet 00:00: 04:59 mouth 2 [place] 00 :00 (two) Medical times Branch daily for 30 days. metoprolol 2021- No [id number] 25mg Take 1 Univers succinate 01-31 tablet by ity of XL 25 mg 24 00:00: 00:00 mouth 2 [place] hr tablet 00 :00 (two) Medical times Branch daily. furosemide 2021- No [id number] 40mg Take 1 Univers 40 mg 01-31 tablet by ity of tablet 00:00: 00:00 mouth 2 [place] 00 :00 (two) Medical times Branch daily for 30 days. metoprolol 2021- No [id number] 25mg Take 1 Univers succinate 01-31 tablet by ity of XL 25 mg 24 00:00: 00:00 mouth 2 [place] hr tablet 00 :00 (two) Medical times Branch daily for 30 days. acetaminoph Yes 650mg 650 mg, Un alexia en 01-30 Oral, ity of (TYLENOL) 19:27: Q6HPRN, [place] tablet 650 59 Starting Medic al mg on Fri Branch 01/30/22 at 1427, Until Discontinu ed, Routine, Pain (scale 1-3), Temp > 38.5 C methylPREDN 2021- No 40mg 40 mg, Uni vers ISolone sod 01-29 Intravenou i ty of succ 14:00: 18:37 s, DAILY, [place] (SOLU-MEDRO 00 :50 First dose Me dical L (PF)) on [place] Branch injection 01/29/22 at 40 mg 0900, Until Discontinu ed, 1 mL ceFEPIme 2021- No 2000mg 2,000 mg, U nivers (MAXIPIME) 01-29 IV ity of 2,000 mg in 07:15: 22:11 Piggyback, [place] NaCl 0.9% 00 :39 Q8H ABX, Medica l (NS) 50 mL First dose [facility] MINI-BAG on [place] 01/29/22 at 0215, [...] at 2000, Until Discontinu ed, Routine ceFEPIme 0 202- No 2000mg 2,000 mg, U nivers (MAXIPIME) 01-28 IV ity of 2,000 mg in 23:45: 01:18 [place], [place] NaCl 0.9% 00 :00 ONCE, 1 Medical (NS) 50 mL dose, On Branc h MINI-BAG 01/28/22 at 1845, Administer over 30 Minutes, 50 mL
[place] for Anti-Infec tive: Documented Infection< br>Documen alden Infection Site: Respirator y
Du ration of Therapy: 7 days propofoL IV Yes 5ug/kg/ 5-50 Uni vers infusion 7-06 min mcg/kg/min ity o f 22:46: ?112.5 kg [place] 21 (3.375-33. Medical 75 mL/hr, Branch rounded [...] Routine LORazepam 2021- No .5mg 0.5 mg, [facility] ers (ATIVAN) 01-28 07 Slow IV ity [...]
Do Not Refrigerat e.
sulfur 2021- No [id number] 5mL 5 mL, [facility] ers hexafluorid 01-28 Intravenou i ty of e microsphr 15:45: 15:45 s, ONCE, 1 [place] (LUMASON) 00 :00 dose, On Medica l injection 5 Wed01/28/22 Br anch mL at 1045, Routine
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 medication : STELLA IVORY enoxaparin Yes 40mg 40 mg, [facility] [place] [facility] rs (LOVENOX) 01-28 Subcutaneo ity of injection [...] Yes 100mg 100 mg, Unive rs (COLACE) - Oral, BID, ity o f capsule 100 07:15: First dose [place] mg 00 on Wed [facility] 01/28/22 at Branch 0215, Until Discontinu ed, Routine pregabalin 2021-0 Yes 200mg 200 mg, Uni vers (LYRICA) 01-28 Oral, BID, ity o f capsule 200 07:15: First dose [place] mg 00 on Wed [facility] 01/28/22 at Branch 0215, Until Discontinu ed, Routine ondansetron 2021-0 Yes 4mg 4 mg, Slow Univers (ZOFRAN 01-28 IV Push, ity of (PF)) 07:04: Q6HPRN, [place] injection 4 34 Starting Medi michel mg on Wed [place] 01/28/22 at 0204, Until Discontinu ed, Routine, Nausea and Vomiting (N/V) glucagon 2021-0 Yes 1mg 1 mg, Univers (GLUCAGEN 01-28 Intramuscu ity of DIAGNOSTIC 07:03: lar, PRN, [place] KIT) 14 Starting Medical injection 1 on Wed [facility] 01/28/22 at 0203, Until Discontinu ed, [...] s mg 47 Starting Medical on Wed [place] 01/28/22 at 0201, Until Discontinu ed, Routine, Anxiety famotidine 2021-0 Yes 20mg 20 mg, Unive rs (PEPCID AC) - Oral, BID, it y of tablet 20 07:00: First dose [place] mg 00 on Wed [facility] 01/28/22 at Branch 0200, Until Discontinu ed, Routine QUEtiapine 2021-0 Yes 100mg 100 mg, Uni vers (SEROQUEL) 7-06 Oral, QHS, ity of tablet 100 07:00: First dose [place] mg 00 on Wed Medical 01/28/22 at Branch 0200, Until Discontinu ed, Routine metoprolol 2021-0 Yes 25mg 25 mg, [facility] succ[facility] 01-28 Oral, BID, ity of XL (TOPROL 07:00: First dose [place] XL) tablet 00 on Wed Medical 25 mg 01/28/22 at Branch 0200, Until Discontinu ed, Routine ipratropium 2021-0 202- No 3mL 3 mL, [facility] ers -albuteroL 01-28 07- Inhalation it y of (DUONEB) 07:00: 20:55 , QID, [place] 0.5 mg-3 00 :07 First dose Medic al mg(2.5 mg on Wed [place] base)/3 mL 01/28/22 at nebulizer 0200, solution 3 Until mL Discontinu ed, Routine cyclobenzap Yes 10mg 10 mg, [facility] ers rine 01-28 Oral, ity of (FLEXERIL) [...] Branch at 2215, CT morpHINE (4 2021-0 2021- No 4mg 4 mg, Slow Univers mg/mL) 01-28- IV Push, ity of injection 4 02:30: 02:25 ONCE, 1 [place] mg 00 :00 dose, On Medical Wed01/27/22 Branch at 2130, STAT ondansetron 2021-0 2022- No 4mg 4 mg, Slow Univers (ZOFRAN 01-28 07-06 IV Push, ity of (PF)) 02:30: 02:23 [...] as Medica l base)/3 mL needed for [facility] nebulizer Wheezing. solution spironolact 0 Yes [...] [place] 00 :00 dose, On Medical [facility] Branch 01/12/22 at 2145, CT HYDROcodone 2021- No 1{tbl} 1 tablet, Univers -acetaminop 01-13 Oral, ONCE i ty of hen (NORCO) 02:00: 01:08 NOW, 1 Compa as 10-325 mg 00 :00 dose, On Medica l tablet 1 Mon [place] tablet 01/12/22 at 2100, Routine ibuprofen No 600mg 600 mg, Uni vers (IBU) 01-13 Oral, ity of tablet 600 00:15: 23:14 ONCE, 1 [place]a as mg 00 :00 dose, On [facility] 01/12/22 at 1915, CT cyclobenzap Yes 10mg Take 10 mg Univers rine 5 mg 6-20 by mouth 3 ity of tablet 14:06: (three) [place] 48 times Medical daily. Branch LORazepam Yes .5mg Take 0.5 Univ ers 0.5 mg 6-20 mg by ity of tablet 14:06: mouth 2 [place] 48 (two) Medical times [place] daily as needed. Potassium Yes Take by Unive rs Gluconate 6-20 mouth ity of 595 mg (99 14:06: [place]. [place] mg) Tab 48 Medical Branch ipratropium 0 Yes 1{ampul 1 Ampule Univers -albuterol 6-20 e} every 4 ity of 0.5 mg-3 14:06: (four) [place] mg(2.5 mg 48 hours as Medica l base)/3 mL needed for [facility] nebulizer Wheezing. solution spironolact Yes 25mg [...] Medica l base)/3 mL needed for [facility] nebulizer Wheezing. solution spironolact Yes 25mg [...] as Medica l base)/3 mL needed for [facility] nebulizer Wheezing. solution spironolact Yes 25mg [...] (eight) Branch hours as needed. ALPRAZolam Yes [id number] .5mg Take 1 Univers 0.5 mg 6-20 tablet by ity of tablet 00:00: mouth 3 [place] 00 (three) Medical times Branch daily. ALPRAZolam Yes [id number] .5mg Take 1 Univers 0.5 mg 6-20 tablet by ity of tablet 00:00: mouth 3 [place] 00 (three) Medical times Branch daily. ALPRAZolam Yes [id number] .5mg Take 1 Univers 0.5 mg 6-20 tablet by ity of tablet 00:00: mouth 3 [place] 00 (three) Medical times Branch daily. ALPRAZolam Yes [id number] .5mg Take 1 Univers 0.5 mg 6-20 tablet by ity of tablet 00:00: mouth 3 [place] 00 (three) Medical times Branch daily. ALPRAZolam 2021- No [id number] .5mg Take 1 Univers 0.5 mg 6-20 -09 tablet by ity of tablet 00:00: 00:00 mouth 3 [place] 00 :00 (three) Medical times Branch daily. ALPRAZolam Yes .5mg 0.5 mg, Univ ers (XANAX) 01-11 Oral, TID, ity of tablet 0.5 01:30: First dose [place] mg 00 (after Medical last Branch modificati on) on [facility] 01/10/22 at 2030, Until Discontinu ed, Routine ALPRAZolam 2021- No .5mg 0.5 mg, Uni vers (XANAX) 01-10 0619 Oral, TID, ity o f tablet 0.5 21:30: 01:15 First dose [place] mg 00 :25 on [facility] Medical 01/10/22 at Branch 1630, Until Discontinu ed, Routine acetaminoph Yes 650mg 650 mg, Un alexia en 01-09 Oral, ity of (TYLENOL) 22:42: Q6HPRN, [place] tablet 650 06 Starting Medic al mg [...] mcg/kg/min ity o f 14:02: ?104.3 kg [place] 51 (3.129-31. Medical 29 mL/hr, Branch rounded [...] 2021- No 100ug 100 mcg, Univers (SUBLIMAZE 01-07 [...] mcg/kg/min ity o f 21:35: ?104.3 kg [place] 37 (3.129-31. Medical 29 mL/hr, Branch rounded [...] IV ity of injection 20:45: 15:02 Push, [place] 40 mg 00 :09 DAILY, Medical First dose Branch on Wed01/06/22 at 1545, Until Discontinu ed, Routine ceFEPIme 2021- No 1000mg 1,000 mg, U nivers (MAXIPIME) 01-06-15 IV ity of 1,000 mg in 19:00: 22:16 Piggyback, [place] NaCl 0.9% 00 :00 Q8H ABX, 4 [...] mcg/kg/min ity of 01:12: 18:02 ?104.3 kg [place] 34 :29 (3.129-31. Medical 29 mL/hr, Branch [...] :00 doses, Medical mEq/100 mL First dose [facility] RTU IVPB 20 on [place] mEq 01/04/22 at 1000, Last dose on [place] 01/04/22 at 1200, 100 mL insulin 2021- No 10U 10 Units, [facility] ers glargine 01-04 Subcutaneo ity of (LANTUS 14:00: 15:09 us, DAILY, Compa as U-100) 00 :45 First dose Medical injection (after Branch 10 Units last modificati on) on [place] 01/04/22 at 0900, Until Discontinu ed, Routine metoprolol No 5mg 5 mg, Slow Univers (LOPRESSOR) 01-04 IV Push, ity of injection 5 13:45: 17:13 BID, First [place] mg 00 :45 dose on Medical [place] 01/04/22 at 0845, Until Discontinu ed, Routine QUEtiapine No 25mg 25 mg, [facility] ers (SEROQUEL) 01-04 Oral, BID, it y of tablet 25 13:45: 13:55 First dose [place] mg 00 :32 (after Medical last Branch modificati on) on [place] 01/04/22 at 0845, Until Discontinu ed, Routine iopamidol 2021- No [id number] 100mL 100 mL, Univers (ISOVUE 01-04 Intravenou [...] Slow IV ity of (PF)) 03:00: Push, [place] injection 00 Q12H, Medical 20 mg First dose Branch on Wed01/02/22 at 2200, Until Discontinu ed, Routine propofoL IV 2021- No 5ug/kg/ 5-50 Un alexia infusion 01-02 06-11 min mcg/kg/min ity of 22:07: 21:04 ?104.3 kg [place] 53 :48 (3.129-31. Medical 29 mL/hr, Branch [...] ity o f (PF)) 19:24: 19:34 Push, [place] injection 00 :00 ONCE, 1 Medical 100 mcg dose, On Branch Wed01/02/22 at 1430, Routine meropenem 2021- No 1000mg 1,000 mg, Univers (MERREM) 01-02-14 IV ity of 1,000 mg in 19:00: 15:44 [facility] [place] NaCl 0.9% 00 :06 Q8H ABX, Medica l (NS) 50 mL First dose [facility] MINI-BAG on Wed01/02/22 at 1400, Until Discontinu ed, Administer over 3 Hours, 50 mL
Rest ricted use approved by: [email or web address]
[place] for Anti-Infec tive: Empiric Therapy for Suspected Infection< br>Empiric Therapy Site: Respirator y
Durat ion of therapy: 72 hours Sliding Yes Subcutaneo Univ ers Scale 6-10 us, Q6H, ity of Insulin-Reg 17:00: First dose [place] ular + Fsbg 00 on Wed Medica [...] ity of bolus 14:10: PRN - SEE [place] infusion 46 INSTRUCTIO Medic al 250 mL [...] Yes 3mL 3 mL, Unive rs -albuteroL 610 Inhalation ity of (DUONEB) 13:00: , Q4H, [...] Routine insulin 2021- No 20U 20 Units, [facility] ers glargine 01-0210 Subcutaneo ity of (LANTUS 13:00: 14:11 us, BID, [place] U-100) 00 :23 First dose Medical injection on Wed Branch 20 Units 01/02/22 at 0800, Until Discontinu ed, Routine albuterol 2021- No 2.5mg 2.5 mg, Uni vers (PROVENTIL) 01-0213 Inhalation i ty of 2.5 mg /3 12:30: 01:18 , Q6H, [place] mL (0.083 00 :50 First dose Medi michel %) on Wed Branch nebulizer 01/02/22 at solution 0730, 2.5 mg Until Discontinu ed, Routine acetylcyste 2021- No 4mL 800 mg (4 Univers ine 01-02-11 mL), ity of (MUCOMYST) 12:30: 19:38 Inhalation [...] of NS 500 mL 12:00: 14:27 from [place] IV 00 :44 1,564.5 mg Medical Piggyback [...] ity of 1 mEq/mL 11:45: 09:45 Push, [place] (8.4 %) 00 :00 ONCE, 1 Medical injection dose, On Branch 100 mEq Wed01/02/22 at 0645, Routine meropenem 2021- No 1000mg 1,000 mg, Univers (MERREM) 01-02 IV ity of 1,000 mg in 11:15: 12:[facility] [place] NaCl 0.9% 00 :00 ONCE, 1 Medical [...] On Branch Wed01/02/22 at 0315, STAT ceFEPIme 2021- No 1g 1 g, IV Unive rs (MAXIPIME) 01-02 Piggyback, it y of 1 g in NaCl 06:30: 07:42 ONCE, 1 [place] 0.9% (NS) 00 :00 dose, On Medica l 100 mL [facility] MINI-BAG 01/02/22 at 0130, Administer over 30 Minutes, 100 mL
Reas on for Anti-Infec tive: Empiric Therapy for Suspected Infection< br>Empiric Therapy Site: Respirator y
Durat ion of therapy: 72 hours azithromyci 2021- No 500mg 500 mg, IV Univers n 01-02 Piggyback, ity of (ZITHROMAX) 06:30: 05:42 ONCE, 1 [place] injection 00 :00 dose, On Medica l 500 mg [facility] Branch 01/02/22 at 0130, STAT
Re ason for Anti-Infec tive: Documented Infection< br>Documen alden Infection Site: Respirator y
Durat ion of Therapy: Other (see Comments) ondansetron No 4mg 4 mg, Slow Univers (ZOFRAN 12-09 IV Push, ity of (PF)) 05:45: 04:41 ONCE, 1 [place] injection 4 00 :00 dose, On Medi michel mg [facility] 12/09/21 at 0045, CT morpHINE (4 No 4mg 4 mg, Slow Univers mg/mL) 12-09 IV Push, ity of injection 4 05:45: 04:41 ONCE, 1 [place] mg 00 :00 dose, On Medical [facility] 12/09/21 at 0045, STAT levalbutero 2021- No 1.25mg 1.25 mg, Univers l (XOPENEX) 12-09 Inhalation i ty of nebulizer 05:00: 04:22 , ONCE, 1 [place] solution 00 :00 dose, On Medical 1.25 mg [facility] 12/09/21 at 0000, Routine predniSONE 2021- No [id number] 40mg Take 2 Univers 20 mg 3 03-06 tablets by ity of tablet 00:00: 05:59 mouth [place] 00 :00 daily for Medical 3 days. Branch predniSONE 0 2021- No [id number] 40mg Take 2 Univers 20 mg 3-02 [...] as Medica l base)/3 mL needed for [facility] nebulizer Wheezing. solution spironolact Yes 25mg [...] as Medica l base)/3 mL needed for [facility] nebulizer Wheezing. solution spironolact Yes 25mg [...] Medical times Branch daily as needed. Potassium 0 Yes Take by Unive rs Gluconate 3- mouth ity of 595 mg (99 15:03: [place]. [place] mg) Tab 49 Medical Branch ipratropium 0 Yes 1{ampul 1 Ampule Univers -albuterol 3 e} every 4 ity of 0.5 mg-3 15:03: (four) [place] mg(2.5 mg 49 hours as Medica l base)/3 mL needed for [facility] nebulizer Wheezing. solution spironolact 0 Yes 25mg Take 25 mg Univers one 25 mg 3-01 by mouth 2 ity of tablet 15:03: (two) [place] 49 times Medical daily. Branch semaglutide Yes inject Univ ers (OZEMPIC) 3 under the ity o f 0.25 mg or 15:03: skin. [place] 0.5 mg(2 49 Medical mg/1.5 mL) Branch PnIj dulaglutide 0 Yes Trulicity U nivers (TRULICITY) 3 3 [...] First dose [place] 17 g 00 on [facility] 09/23/21 at Branch 0815, Until Discontinu ed, Routine proCHLORper 2021-0 2022- No 5mg 5 mg, IV U nivers azine 09-23- Piggy[place], ity of (COMPAZINE) 13:00: 12:33 ONCE, 1 [place] 5 mg in 00 :00 dose, On Medical NaCl 0.9% Wed09/23/21 Bran ch (NS) at 0700, piggyback 50 mL ondansetron 2021- No 8mg Take 8 mg Univers 8 mg tablet 09-23 by mouth ity of 12:53: 00:00 every 8 [place] 19 :00 (eight) Medical hours as Branch needed. ondansetron No 4mg 4 mg, Slow Univers (ZOFRAN 09-23 IV Push, ity of (PF)) 10:00: 09:12 ONCE, 1 [place] injection 4 00 :00 dose, On Medi michel mg [facility] 09/23/21 Branch at 0400, Routine ondansetron Yes 4mg 4 mg, Slow Univers (ZOFRAN 09-23 IV Push, ity of (PF)) 04:25: Q6HPRN, [place] injection 4 51 Starting Medi michel mg on Wed Branch 09/22/21 at 2225, Until Discontinu ed, Routine, Nausea and Vomiting (N/V) insulin Yes 60U 60 Units, Unive rs glargine 3 Subcutaneo ity o f (LANTUS 03:00: us, QHS, [place] U-100) 00 First dose Medical injection on Wed 60 Units 09/22/21 at 2100, Until Discontinu ed, Routine Sliding 0 Yes Subcutaneo Univ ers Scale 3- us, Q4H, ity of Insulin - 02:45: First dose [place] Lispro 00 (after Medical (HumaLOG) + last Branch Fsbg modificati Testing on) on Wed09/22/21 at 2045, Until Discontinu ed, Routine azithromyci 2021- No [id number] 250mg Take 1 Univers n 09-23 tablet by ity of (ZITHROMAX 00:00: 05:59 mouth [place] Z-ULYSSES) 250 00 :00 daily for Medi michel mg tablet 4 days. Branch azithromyci 2021- No [id number] 250mg Take 1 Univers n 3-01 03-06 tablet by ity of (ZITHROMAX 00:00: 05:59 mouth [place] Z-ULYSSES) 250 00 :00 daily for Medi michel mg tablet 4 days. [place] cyclobenzap Yes 5mg 5 mg, Unive rs [...] ity of bolus 20:39: PRN - SEE [place] infusion 11 INSTRUCTIO Medic al 250 mL [...] or has mental changes. sulfur 2021- No [id number] 5mL 5 mL, Univ ers hexafluorid 09-22 Intravenou i ty of e microsphr 18:45: 19:00 s, ONCE, 1 [place] (LUMASON) 00 :00 dose, On Medica l injection 5 [facility] mL 09/22/21 at 1300, Routine
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 medication : MARY GLORIA HYDROcodone Yes 1{tbl} 1 tablet, Univers -acetaminop 09-22 Oral, ity of hen (NORCO) 16:26: Q8HPRN, [place] as 10-325 mg 26 Starting Medica l tablet 1 on [facility] tablet 09/22/21 at 1026, Until Discontinu ed, Routine, Pain (scale 4-6), Pain (scale 7-10) furosemide Yes 40mg 40 mg, Unive rs (LASIX) 09-22 Oral, ity of tablet 40 15:00: DAILY, [place] mg 00 First dose Medical on [facility] 09/22/21 at 0900, Until Discontinu ed, Routine [...] of 2.5 mg /3 14:00: , Q4H, [place] mL (0.083 00 First dose Medi michel %) on [facility] nebulizer 09/22/21 at solution 0800, 2.5 mg Until Discontinu ed, Routine heparin Yes 5000U 5,000 Univers (porcine) 09-22 Units, ity of injection 14:00: Subcutaneo [place] 5,000 Units 00 us, Q12H, Med ical First dose Branch on [facility] 09/22/21 at 0800, Until Discontinu ed, Routine Sliding 2021- No Subcutaneo Uni vers Scale 09-22 0228 us, AC+HS, ity of Insulin-Reg 13:30: 19:17 First dose [place] ular + Fsbg 00 :38 on [facility] Medica l Testing 09/22/21 at Branch 0730, Until Discontinu ed, Routine nicotine 0 Yes 1{patch 1 Patch, Un alexia (NICODERM) 09-22 } Topical, ity o f 7 mg/24 hr 13:00: Administer [place] patch 1 00 over 24 Medical Patch Hours, Branch Q24H, First dose on [facility] 09/22/21 at 0700, Until Discontinu ed, Routine pantoprazol Yes 40mg 40 mg, Univ ers e 09-22 Slow IV ity of (PROTONIX) 12:45: Push, [place] injection 00 Q24H, Medical 40 mg First dose Branch on [facility] 09/22/21 at 0645, Until Discontinu ed dextrose 50 Yes 25mL 25 mL, Univ ers % in water 09-22 Slow IV ity of (D50W) 11:14: Push, PRN, [place] injection 28 Starting Medica l 25 mL on [facility] 09/22/21 at 0514, Until Discontinu ed, CT, Blood Glucose < or = 70 mg/dL and patient is unable to swallow or has mental status changes. albuterol No 2.5mg 2.5 mg, Uni vers (PROVENTIL) 09-22 Inhalation i ty of 2.5 mg /3 07:45: 07:15 , ONCE, 1 [place] mL (0.083 00 :00 dose, On Medica l %) [facility] nebulizer 09/22/21 at solution 0145, CT 2.5 mg furosemide No 40mg 40 mg, IV U nivers (LASIX) 09-22 Push, ity of injection 07:30: 06:32 ONCE, 1 [place] 40 mg 00 :00 dose, On Medical [facility] Branch 09/22/21 at 0130, CT methylpredn 2021- No 125mg 125 mg, U nivers isolone sod 09-22 Slow IV ity of succ 07:30: 06:31 Push, ONCE [place] (SOLU-MEDRO 00 :00 NOW, 1 Medica l L) dose, On [place] injection Mon 125 mg 09/22/21 at 0130, CT albuterol 2021- No 2.5mg 2.5 mg, Uni vers (PROVENTIL) 09-22 Inhalation i ty of 2.5 mg /3 07:30: 06:27 , ONCE, 1 [place] mL (0.083 00 :00 dose, On Medica l %) [facility] nebulizer 09/22/21 at solution 0130, CT 2.5 mg aspirin 2021- No 1{tbl} Take 1 Unive rs (ASPIR-81 09-22 tablet by ity of ORAL) 05:21: 00:00 mouth [place] 25 :00 daily. Medical Branch dulaglutide 2020-07 Yes Trulicity U nivers (TRULICITY) 2-29 3 mg/0.5 ity of 3 mg/0.5 mL 14:20: mL [place] [facility] injector dulaglutide 2020-07 Yes Trulicity U nivers (TRULICITY) 2-29 3 mg/0.5 ity of 3 mg/0.5 mL 14:20: mL [place] [facility] Branch injector LORazepam 2020-07 Yes [id number] .5mg Take 1 Un alexia 0.5 mg 2-02 tablet by ity of tablet 00:00: mouth 3 [place] 00 (three) Medical times [place] daily as needed for Nausea and Vomiting (N/V). LORazepam 2020-07 Yes [id number] .5mg Take 1 Un alexia 0.5 mg 2-02 tablet by ity of tablet 00:00: mouth 3 [place] 00 (three) Medical times [place] daily as needed for Nausea and Vomiting (N/V). LORazepam 2020-07 No [id number] .5mg Take 1 U nivers 0.5 mg 2-02 03-01 tablet by ity of tablet 00:00: 00:00 mouth 3 [place] 00 :00 (three) Medical times [place] daily as needed for Nausea and Vomiting [...] nch nebulizer Wheezing. solution nystatin 2018-07 Yes [id number] Apply to Un alexia 100,000 1-06 area(s) 2 ity of unit/gram 00:00: (two) [place] cream 00 times Medical daily. Branch nystatin 2018-07 Yes [id number] Apply to Un alexia 100,000 1-06 area(s) 2 ity of unit/gram 00:00: (two) [place] cream 00 times Medical daily. Branch nystatin 2018-07- No [id number] Apply to U nivers 100,000 1-06 03-01 area(s) 2 ity of unit/gram 00:00: 00:00 (two) [place] cream 00 :00 times Medical daily. Branch rosuvastati 2018-07 Yes TK 1 T PO U nivers n 10 mg 0-28 QD ity of tablet 00:00: [place] Medical [place] rosuvastati 2018-07 Yes TK 1 T PO U nivers n 10 mg 0-28 QD ity of tablet 00:00: [place] Medical [place] rosuvastati 2018-07 Yes TK 1 T PO U nivers n 10 mg 0-28 QD ity of tablet 00:00: [place] [facility] rosuvastati 2018-07 Yes TK 1 T PO U nivers n 10 mg 0-28 QD ity of tablet 00:00: [place] [facility] rosuvastati 2019- Yes TK 1 T PO U nivers n 10 mg 0-28 QD ity of tablet 00:00: [place] [facility] rosuvastati 2018-07 Yes TK 1 T PO U nivers n 10 mg 0-28 QD ity of tablet 00:00: [place] [facility] rosuvastati 2018-07 Yes TK 1 T PO U nivers n 10 mg 0-28 QD ity of tablet 00:00: [place] [facility] rosuvastati 2018-07 Yes TK 1 T PO U nivers n 10 mg 0-28 QD ity of tablet 00:00: [place] [facility] rosuvastati 2018-07 Yes TK 1 T PO U nivers n 10 mg 0-28 QD ity of tablet 00:00: [place] [facility] rosuvastati 2018-07 Yes TK 1 T PO U nivers n 10 mg 0-28 QD ity of tablet 00:00: [place] [facility] rosuvastati 2018-07 Yes TK 1 T PO U nivers n 10 mg 0-28 QD ity of tablet 00:00: [place] [facility] rosuvastati 2018-07 Yes TK 1 T PO U nivers n 10 mg 0-28 QD ity of tablet 00:00: [place] [facility] rosuvastati 2018-07 Yes TK 1 T PO U nivers n 10 mg 0-28 QD ity of tablet 00:00: [place] [facility] rosuvastati 2018-07 Yes TK 1 T PO U nivers n 10 mg 0-28 QD ity of tablet 00:00: [place] [facility] rosuvastati 2018-07 Yes TK 1 T PO U nivers n 10 mg 0-28 QD ity of tablet 00:00: [place] [facility] rosuvastati 2018- Yes TK 1 T PO U nivers n 10 mg 0-28 QD ity of tablet 00:00: [place] [facility] rosuvastati 2018-07 Yes TK 1 T PO U nivers n 10 mg 0-28 QD ity of tablet 00:00: [address] rosuvastati 2018-07 Yes TK 1 T PO U nivers n 10 mg 0-28 QD ity of tablet 00:00: [place] 00 Medical Branch rosuvastati 2018-07 Yes TK 1 T PO U nivers n 10 mg 0-28 QD ity of tablet 00:00: [place] [facility] Branch rosuvastati 2018-07 Yes TK 1 T PO U nivers n 10 mg 0-28 QD ity of tablet 00:00: [place] [facility] rosuvastati 2018-07 Yes TK 1 T PO U nivers n 10 mg 0-28 QD ity of tablet 00:00: [place] [facility] rosuvastati 2018-07 Yes TK 1 T PO U nivers n 10 mg 0-28 QD ity of tablet 00:00: [place] [facility] rosuvastati 2018-07 Yes TK 1 T PO U nivers n 10 mg 0-28 QD ity of tablet 00:00: [place] [facility] rosuvastati 2018-07 Yes TK 1 T PO U nivers n 10 mg 0-28 QD ity of tablet 00:00: [place] [facility] rosuvastati 2018-07 Yes TK 1 T PO U nivers n 10 mg 0-28 QD ity of tablet 00:00: [place] [facility] rosuvastati 2018-07 Yes TK 1 T PO U nivers n 10 mg 0-28 QD ity of tablet 00:00: [place] [facility] ofloxacin 2018-07 Yes INSTIL 2 Univ ers [...] QID [place] solution 00 Medical Branch ofloxacin 2019-1 Yes INSTIL 2 Univ ers 0.3 % [...] 20 mg 0-09 ity of tablet 00:00: [place] 00 Medical Branch furosemide 2018-07 Yes Univers 20 mg 0-09 ity of tablet 00:00: [place] 00 Medical Branch furosemide 2018-07 Yes TK 1 T PO Un alexia 40 mg 0-09 QAM ity of tablet 00:00: [place] Medical Branch furosemide 2018-07 Yes TK 1 T PO Un alexia 40 mg 0-09 QAM ity of tablet 00:00: [place] 00 Medical Branch furosemide 2018-07 Yes Univers 20 mg 0-09 ity of tablet 00:00: [place] 00 Medical Branch furosemide 2018- Yes Univers 20 mg 0-09 ity of tablet 00:00: [place] 00 Medical Branch furosemide 2018-07 Yes Univers 20 mg 0-09 ity of tablet 00:00: [place] 00 Medical Branch furosemide 2018-07 Yes Univers 20 mg 0-09 ity of tablet 00:00: [place] 00 Medical Branch furosemide 2018-07 Yes Univers 20 mg 0-09 ity of tablet 00:00: [place] 00 Medical Branch furosemide 2018-07- No Univer s 20 mg 0-09 07-09 ity of tablet 00:00: 00:00 [place] 00 :00 Medical Branch HYDROcodone 2019- Yes 1{tbl} Take 1 Un alexia -acetaminop [...] s mg) Tab 36 Medical Branch ondansetron 0 Yes 8mg Take 8 mg U nivers 8 mg tablet 8-07 by mouth ity of 13:18: every 8 [place] 36 (eight) Medical hours as Branch needed. semaglutide 2018- Yes inject Univ ers (OZEMPIC) 8-07 under [...] (eight) Medical hours as Branch needed. semaglutide 2018-0 Yes inject Univ ers (OZEMPIC) 8-07 under the ity o f 0.25 mg or 13:18: skin. [place] 0.5 mg(2 36 Medical mg/1.5 mL) Branch PnIj fluconazole 2019- Yes [id number] 100mg Take 1 Univers 100 mg 3-26 tablet by ity of tablet 00:00: mouth [place] 00 daily. Medical Branch fluconazole 2019-0 Yes [id number] 100mg Take 1 Univers 100 mg 3-26 tablet by ity of tablet 00:00: mouth [place] 00 daily. Medical Branch fluconazole 2019- Yes [id number] 100mg Take 1 Univers 100 mg 3-26 tablet by ity of tablet 00:00: mouth [place] 00 daily. Medical Branch fluconazole 2018- Yes [id number] 100mg Take 1 Univers 100 mg 3-26 tablet by ity of tablet 00:00: mouth [place] 00 daily. Medical Branch fluconazole 2018- Yes [id number] 100mg Take 1 Univers 100 mg 3-26 tablet by ity of tablet 00:00: mouth [place] 00 daily. Medical Branch fluconazole 2018- Yes [id number] 100mg Take 1 Univers 100 mg 3-26 tablet by ity of tablet 00:00: mouth [place] 00 daily. Medical Branch fluconazole 2018- Yes [id number] 100mg Take 1 Univers 100 mg 3-26 tablet by ity of tablet 00:00: mouth [place] 00 daily. Medical Branch fluconazole 2018- Yes [id number] 100mg Take 1 Univers 100 mg 3-26 tablet by ity of tablet 00:00: mouth [place] 00 daily. Medical Branch fluconazole 2018- Yes [id number] 100mg Take 1 Univers 100 mg 3-26 tablet by ity of tablet 00:00: mouth [place] 00 daily. Medical Branch fluconazole 2018-2021- No [id number] 100mg Take 1 Univers 100 mg 3-26 [...] ity of iron- 1 mg 00:00: [place] [facility] Medical Branch paroxetine 0 Yes Univers 40 mg 2-28 ity of tablet 00:00: [place] Medical Branch paroxetine 2017-0 Yes Univers 40 mg 2-28 ity of tablet 00:00: [place] [facility] Branch paroxetine 2018-0 Yes Univers 40 mg 2-28 ity of tablet 00:00: [place] Medical Branch paroxetine 2018-0 Yes Univers 40 mg 2-28 ity of tablet 00:00: [place] [address] Medical Branch paroxetine 2018-0 Yes Univers 40 mg 2-28 ity of tablet 00:00: [place] [facility] Branch paroxetine 2018-0 Yes Univers 40 mg 2-28 ity of tablet 00:00: [place] [facility] Branch paroxetine 2018-0 Yes Univers 40 mg 2-28 ity of tablet 00:00: [place] Medical Branch paroxetine 2018-0 Yes Univers 40 mg 2-28 ity of tablet 00:00: [place] [facility] Branch paroxetine 2018-0 Yes Univers 40 mg 2-28 ity of tablet 00:00: [place] [facility] Branch paroxetine 2018-0 Yes Univers 40 mg 2-28 ity of tablet 00:00: [place] [facility] Branch paroxetine 2018-0 Yes Univers 40 mg 2-28 ity of tablet 00:00: [place] [facility] Branch paroxetine 2018-0 Yes Univers 40 mg 2-28 ity of tablet 00:00: [place] [facility] Branch paroxetine 2018-0 Yes Univers 40 mg 2-28 ity of tablet 00:00: [place] [facility] Branch paroxetine 2018-0 Yes Univers 40 mg 2-28 ity of tablet 00:00: [place] [facility] Branch paroxetine 2018-0 Yes Univers 40 mg 2-28 ity of tablet 00:00: [place] [address] Medical Branch paroxetine 2018-0 Yes Univers 40 mg 2-28 ity of tablet 00:00: [place] [address] Medical Branch paroxetine 2018-0 Yes Univers 40 mg 2-28 ity of tablet 00:00: [place] [address] Medical Branch paroxetine 2018-0 Yes Univers 40 mg 2-28 ity of tablet 00:00: [place] [address] Medical Branch paroxetine 2018-0 Yes Univers 40 mg 2-28 ity of tablet 00:00: [place] [address] Medical Branch paroxetine 2018-0 Yes Univers 40 mg 2-28 ity of tablet 00:00: [place] [address] Medical Branch paroxetine 2018-0 Yes Univers 40 mg 2-28 ity of tablet 00:00: [place] [address] Medical Branch paroxetine 2018-0 Yes Univers 40 mg 2-28 ity of tablet 00:00: [place] [address] Medical Branch paroxetine 2018-0 Yes Univers 40 mg 2-28 ity of tablet 00:00: [place] [address] Medical Branch paroxetine 2018-0 Yes Univers 40 mg 2-28 ity of tablet 00:00: [place] [address] Medical Branch paroxetine 2018-0 Yes Univers 40 mg 2-28 ity of tablet 00:00: [place] [address] Medical Branch paroxetine 2018-0 Yes Univers 40 mg 2-28 ity of tablet 00:00: [place] [address] Medical Branch LEVEMIR 0 Yes INJECT 5 Univer s FLEXTOUCH 1-09 UNITS SC ity of 100 unit/mL 00:00: QD [place] (3 mL) 00 Medical injection Branch LEVEMIR [id number] Yes INJECT 5 Univer s FLEXTOUCH 1-09 UNITS SC ity of 100 unit/mL 00:00: QD [place] (3 mL) Medical injection Branch LEVEMIR 2018-0 Yes INJECT 5 Univer s FLEXTOUCH 1-09 UNITS SC ity of 100 unit/mL 00:00: QD [place] (3 mL) 00 Medical injection Branch LEVEMIR 2018-0 Yes INJECT 5 Univer s FLEXTOUCH 1-09 UNITS SC ity of 100 unit/mL 00:00: QD [place] (3 mL) Medical injection Branch LEVEMIR [id number] Yes INJECT 5 Univer s FLEXTOUCH 1-09 [...] mL) 00 Medical injection Branch LEVEMIR 0 2023- No 60U 60 Units. Univ ers FLEXTOUCH 1-09 05-18 ity of 100 unit/mL 00:00: 00:00 [place] (3 mL) 00 :00 Medical injection Branch sodium 2016-07 Yes 4mL [...] as solution 00 :00 times Medical daily. [place] ranitidine Yes TK 1 T PO Un alexia 300 mg 4-18 BID ity of tablet 00:00: [place] [facility] ranitidine Yes TK 1 T PO Un alexia 300 mg 4-18 BID ity of tablet 00:00: [place] [facility] ranitidine Yes TK 1 T PO Un alexia 300 mg 4-18 BID ity of tablet 00:00: [facility] ranitidine 2016- Yes TK 1 T PO Un alexia 300 mg 4-18 BID ity of tablet 00:00: [facility] ranitidine Yes TK 1 T PO Un alexia 300 mg 4-18 BID ity of tablet 00:00: [facility] ranitidine 2016- Yes TK 1 T PO Un alexia 300 mg 4-18 BID ity of tablet 00:00: [place] 00 Medical Branch ranitidine 2017-0 Yes TK 1 T PO Un alexia 300 mg 4-18 BID ity of tablet 00:00: [place] [facility] ranitidine 2017-0 Yes TK 1 T PO Un alexia 300 mg 4-18 BID ity of tablet 00:00: [place] 00 [facility] Branch ranitidine 2016-0 Yes TK 1 T PO Un alexia 300 mg 4-18 BID ity of tablet 00:00: [place] [facility] ranitidine 0 Yes TK 1 T PO Un alexia 300 mg 4-18 BID ity of tablet 00:00: [place] [facility] ranitidine 0 Yes TK 1 T PO Un alexia 300 mg 4-18 BID ity of tablet 00:00: [place] [facility] ranitidine 0 Yes TK 1 T PO Un alexia 300 mg 4-18 BID ity of tablet 00:00: [place] [facility] ranitidine 2016-0 Yes TK 1 T PO Un alexia 300 mg 4-18 BID ity of tablet 00:00: [place] 00 Medical Branch ranitidine 2017-0 2022- No TK [...] [place] tablet 00 bedtime. Medical Branch paroxetine 0 Yes 40mg Take 2 Unive rs (PAXIL) 20 9-03 Tabs by ity of mg tablet 00:00: mouth [place] 00 daily. Medical Branch paroxetine 2015-0 Yes 40mg Take 2 Unive rs (PAXIL) 20 03-28 Tabs by ity of mg tablet 00:00: mouth [place] 00 daily. Medical Branch paroxetine 2- No 40mg Take 2 Univ ers (PAXIL) 20 - 03-01 Tabs by ity o f mg [...] capsule 00 bedtime. Medical Branch pregabalin 2014-0 3- No 300mg Take 1 Cap Univers (LYRICA) 6-13 01-16 by mouth ity of 300 mg 00:00: 00:00 at [place] capsule 00 :00 bedtime. Medical Branch Immunizations Ordered Filled Immunization Date Status Comments [facility] e Immunization Name Name Pneumococcal 2017-06-08 Completed University o f Polysaccharide, 00:00:00 [place] [facility] ica PPSV23 (PNEUMOVAX) Branch Influenza Virus 2017-06-08 Completed Universit y of Vaccine Quad IM 3+ 00:00:00 [facility] Branch Pneumococcal 2017-06-08 Completed University o f Polysaccharide, 00:00:00 [place] Med ical PPSV23 (PNEUMOVAX) Branch Influenza Virus 2017-06-08 Completed Universit y of Vaccine Quad IM 3+ 00:00:00 [facility] Pneumococcal 2017-06-08 Completed University o f Polysaccharide, 00:00:00 [place] [facility] ical PPSV23 (PNEUMOVAX) Branch Influenza Virus 2017-06-08 Completed Universit y of Vaccine Quad IM 3+ 00:00:00 [facility] Pneumococcal 2017-06-08 Completed University o f Polysaccharide, 00:00:00 [place] [facility] ical PPSV23 (PNEUMOVAX) Branch Influenza Virus 2017-06-08 Completed Universit y of Vaccine Quad IM 3+ 00:00:00 [facility] Pneumococcal 2017-06-08 Completed University o f Polysaccharide, 00:00:00 [place] [facility] ical PPSV23 (PNEUMOVAX) Branch Influenza Virus 2017-06-08 Completed Universit y of Vaccine Quad IM 3+ 00:00:00 [facility] Pneumococcal 2017-06-08 Completed University o f Polysaccharide, 00:00:00 [place] [facility] ical PPSV23 (PNEUMOVAX) Branch Influenza Virus 2017-06-08 Completed Universit y of Vaccine Quad IM 3+ 00:00:00 [facility] Pneumococcal 2017-06-08 Completed University o f Polysaccharide, 00:00:00 [place] [facility] ical PPSV23 (PNEUMOVAX) Branch Influenza Virus 2017-06-08 Completed Universit y of Vaccine Quad IM 3+ 00:00:00 [facility] Pneumococcal 2017-06-08 Completed University o f Polysaccharide, 00:00:00 [place] [facility] ical PPSV23 (PNEUMOVAX) Branch Influenza Virus 2017-06-08 Completed Universit y of Vaccine Quad IM 3+ 00:00:00 [facility] Pneumococcal 2017-06-08 Completed University o f Polysaccharide, 00:00:00 [place] [facility] ical PPSV23 (PNEUMOVAX) Branch Influenza Virus 2017-06-08 Completed Universit y of Vaccine Quad IM 3+ 00:00:00 [facility] Pneumococcal 2017-06-08 Completed University o f Polysaccharide, 00:00:00 [place] [facility] ical PPSV23 (PNEUMOVAX) Branch Influenza Virus 2017-06-08 Completed Universit y of Vaccine Quad IM 3+ 00:00:00 [facility] Pneumococcal 2017-06-08 Completed University o f Polysaccharide, 00:00:00 [place] Med ical PPSV23 (PNEUMOVAX) Branch Influenza Virus 2017-06-08 Completed Universit y of Vaccine Quad IM 3+ 00:00:00 [facility] Pneumococcal 2017-06-08 Completed University o f Polysaccharide, 00:00:00 [place] Med ical PPSV23 (PNEUMOVAX) Branch Influenza Virus 2017-06-08 Completed Universit y of Vaccine Quad IM 3+ 00:00:00 [facility] Pneumococcal 2017-06-08 Completed University o f Polysaccharide, 00:00:00 [place] [facility] ical PPSV23 (PNEUMOVAX) Branch Influenza Virus 2017-06-08 Completed Universit y of Vaccine Quad IM 3+ 00:00:00 [facility] Pneumococcal 2017-06-08 Completed University o f Polysaccharide, 00:00:00 [place] [facility] ical PPSV23 (PNEUMOVAX) Branch Influenza Virus 2017-06-08 Completed Universit y of Vaccine Quad IM 3+ 00:00:00 [facility] Pneumococcal 2017-06-08 Completed University o f Polysaccharide, 00:00:00 [place] [facility] ical PPSV23 (PNEUMOVAX) Branch Influenza Virus 2017-06-08 Completed Universit y of Vaccine Quad IM 3+ 00:00:00 [facility] Pneumococcal 2017-06-08 Completed University o f Polysaccharide, 00:00:00 [place] [facility] ical PPSV23 (PNEUMOVAX) Branch Influenza Virus 2017-06-08 Completed Universit y of Vaccine Quad IM 3+ 00:00:00 [facility] Pneumococcal 2017-06-08 Completed University o f Polysaccharide, 00:00:00 [place] [facility] ical PPSV23 (PNEUMOVAX) Branch Influenza Virus 2017-06-08 Completed Universit y of Vaccine Quad IM 3+ 00:00:00 [facility] Pneumococcal 2017-06-08 Completed University o f Polysaccharide, 00:00:00 [place] [facility] ical PPSV23 (PNEUMOVAX) Branch Influenza Virus 2017-06-08 Completed Universit y of Vaccine Quad IM 3+ 00:00:00 [facility] Pneumococcal 2017-06-08 Completed University o f Polysaccharide, 00:00:00 [place] [facility] ical PPSV23 (PNEUMOVAX) Branch Influenza Virus 2017-06-08 Completed Universit y of Vaccine Quad IM 3+ 00:00:00 [facility] Pneumococcal 2017-06-08 Completed University o f Polysaccharide, 00:00:00 [place] Med ical PPSV23 (PNEUMOVAX) Branch Influenza Virus 2017-06-08 Completed Universit y of Vaccine Quad IM 3+ 00:00:00 [facility] Pneumococcal 2017-06-08 Completed University o f Polysaccharide, 00:00:00 [place] [facility] ical PPSV23 (PNEUMOVAX) Branch Influenza Virus 2017-06-08 Completed Universit y of Vaccine Quad IM 3+ 00:00:00 [facility] Pneumococcal 2017-06-08 Completed University o f Polysaccharide, 00:00:00 [place] Med ical PPSV23 (PNEUMOVAX) Branch Influenza Virus 2017-06-08 Completed Universit y of Vaccine Quad IM 3+ 00:00:00 [facility] Pneumococcal 2017-06-08 Completed University o f Polysaccharide, 00:00:00 [place] [facility] ical PPSV23 (PNEUMOVAX) Branch Influenza Virus 2017-06-08 Completed Universit y of Vaccine Quad IM 3+ 00:00:00 [facility] Pneumococcal 2017-06-08 Completed University o f Polysaccharide, 00:00:00 [place] [facility] ical PPSV23 (PNEUMOVAX) Branch Influenza Virus 2017-06-08 Completed Universit y of Vaccine Quad IM 3+ 00:00:00 [facility] Pneumococcal 2017-06-08 Completed University o f Polysaccharide, 00:00:00 [place] [facility] ical PPSV23 (PNEUMOVAX) Branch Influenza Virus 2017-06-08 Completed Universit y of Vaccine Quad IM 3+ 00:00:00 [facility] Pneumococcal 2017-06-08 Completed University o f Polysaccharide, 00:00:00 [place] [facility] ical PPSV23 (PNEUMOVAX) Branch Influenza Virus 2017-06-08 Completed Universit y of Vaccine Quad IM 3+ 00:00:00 [facility] Influenza Virus 2015-06-20 Completed Universit y of Vaccine Quad IM 3+ 00:00:00 [facility] Influenza Virus 2015-06-20 Completed Universit y of Vaccine Quad IM 3+ 00:00:00 [facility] Influenza Virus 2015-06-20 Completed Universit y of Vaccine Quad IM 3+ 00:00:00 [facility] Influenza Virus 2015-06-20 Completed Universit y of Vaccine Quad IM 3+ 00:00:00 [facility] Influenza Virus 2015-06-20 Completed Universit y of Vaccine Quad IM 3+ 00:00:00 [facility] Influenza Virus 2015-06-20 Completed Universit y of Vaccine Quad IM 3+ 00:00:00 [facility] Influenza Virus 2015-06-20 Completed Universit y of Vaccine Quad IM 3+ 00:00:00 [facility] Influenza Virus 2015-06-20 Completed Universit y of Vaccine Quad IM 3+ 00:00:00 [facility] Influenza Virus 2015-06-20 Completed Universit y of Vaccine Quad IM 3+ 00:00:00 [facility] Influenza Virus 2015-06-20 Completed Universit y of Vaccine Quad IM 3+ 00:00:00 [facility] Influenza Virus 2015-06-20 Completed Universit y of Vaccine Quad IM 3+ 00:00:00 [facility] Influenza Virus 2015-06-20 Completed Universit y of Vaccine Quad IM 3+ 00:00:00 [facility] Influenza Virus 2015-06-20 Completed Universit y of Vaccine Quad IM 3+ 00:00:00 [facility] Influenza Virus 2015-06-20 Completed Universit y of Vaccine Quad IM 3+ 00:00:00 [facility] Influenza Virus 2015-06-20 Completed Universit y of Vaccine Quad IM 3+ 00:00:00 [facility] Influenza Virus 2015-06-20 Completed Universit y of Vaccine Quad IM 3+ 00:00:00 [facility] Influenza Virus 2015-06-20 Completed Universit y of Vaccine Quad IM 3+ 00:00:00 [facility] Influenza Virus 2015-06-20 Completed Universit y of Vaccine Quad IM 3+ 00:00:00 [facility] Influenza Virus 2015-06-20 Completed Universit y of Vaccine Quad IM 3+ 00:00:00 [facility] Influenza Virus 2015-06-20 Completed Universit y of Vaccine Quad IM 3+ 00:00:00 [facility] Influenza Virus 2015-06-20 Completed Universit y of Vaccine Quad IM 3+ 00:00:00 [facility] Influenza Virus 2015-06-20 Completed Universit y of Vaccine Quad IM 3+ 00:00:00 [facility] Influenza Virus 2015-06-20 Completed Universit y of Vaccine Quad IM 3+ 00:00:00 [facility] Influenza Virus 2015-06-20 Completed Universit y of Vaccine Quad IM 3+ 00:00:00 [facility] Influenza Virus 2015-06-20 Completed Universit y of Vaccine Quad IM 3+ 00:00:00 [facility] Influenza Virus 2015-06-20 Completed Universit y of Vaccine Quad IM 3+ 00:00:00 [facility] Pneumococcal 2014-07-31 Completed University o f Polysaccharide, 00:00:00 [place] [facility] ical PPSV23 (PNEUMOVAX) Branch Influenza Virus 2014-07-31 Completed Universit y of Vaccine Quad IM 3+ 00:00:00 [facility] TDAP 2014-07-31 Completed University of 00:00:00 [facility] Pneumococcal 2014-07-31 Completed University o f Polysaccharide, 00:00:00 [place] [facility] ical PPSV23 (PNEUMOVAX) Branch Influenza Virus 2014-07-31 Completed Universit y of Vaccine Quad IM 3+ 00:00:00 [facility] TDAP 2014-07-31 Completed University of 00:00:00 [facility] Pneumococcal 2014-07-31 Completed University o f Polysaccharide, 00:00:00 [place] [facility] ical PPSV23 (PNEUMOVAX) Branch Influenza Virus 2014-07-31 Completed Universit y of Vaccine Quad IM 3+ 00:00:00 [facility] TDAP 2014-07-31 Completed University of 00:00:00 [facility] Pneumococcal 2014-07-31 Completed University o f Polysaccharide, 00:00:00 [place] [facility] ical PPSV23 (PNEUMOVAX) Branch Influenza Virus 2014-07-31 Completed Universit y of Vaccine Quad IM 3+ 00:00:00 [facility] TDAP 2014-07-31 Completed University of 00:00:00 [facility] Pneumococcal 2014-07-31 Completed University o f Polysaccharide, 00:00:00 [place] [facility] ical PPSV23 (PNEUMOVAX) Branch Influenza Virus 2014-07-31 Completed Universit y of Vaccine Quad IM 3+ 00:00:00 [facility] TDAP 2014-07-31 Completed University of 00:00:00 [facility] Pneumococcal 2014-07-31 Completed University o f Polysaccharide, 00:00:00 [place] [facility] ical PPSV23 (PNEUMOVAX) Branch Influenza Virus 2014-07-31 Completed Universit y of Vaccine Quad IM 3+ 00:00:00 [facility] TDAP 2014-07-31 Completed University of 00:00:00 [facility] Pneumococcal 2014-07-31 Completed University o f Polysaccharide, 00:00:00 [place] [facility] ical PPSV23 (PNEUMOVAX) Branch Influenza Virus 2014-07-31 Completed Universit y of Vaccine Quad IM 3+ 00:00:00 [facility] TDAP 2014-07-31 Completed University of 00:00:00 [facility] Pneumococcal 2014-07-31 Completed University o f Polysaccharide, 00:00:00 [place] [facility] ical PPSV23 (PNEUMOVAX) Branch Influenza Virus 2014-07-31 Completed Universit y of Vaccine Quad IM 3+ 00:00:00 [facility] TDAP 2014-07-31 Completed University of 00:00:00 [facility] Pneumococcal 2014-07-31 Completed University o f Polysaccharide, 00:00:00 [place] [facility] ical PPSV23 (PNEUMOVAX) Branch Influenza Virus 2014-07-31 Completed Universit y of Vaccine Quad IM 3+ 00:00:00 [facility] TDAP 2014-07-31 Completed University of 00:00:00 [facility] Pneumococcal 2014-07-31 Completed University o f Polysaccharide, 00:00:00 [place] [facility] ical PPSV23 (PNEUMOVAX) Branch Influenza Virus 2014-07-31 Completed Universit y of Vaccine Quad IM 3+ 00:00:00 [facility] TDAP 2014-07-31 Completed University of 00:00:00 [facility] Pneumococcal 2014-07-31 Completed University o f Polysaccharide, 00:00:00 [place] [facility] ical PPSV23 (PNEUMOVAX) Branch Influenza Virus 2014-07-31 Completed Universit y of Vaccine Quad IM 3+ 00:00:00 [facility] TDAP 2014-07-31 Completed University of 00:00:00 [facility] Pneumococcal 2014-07-31 Completed University o f Polysaccharide, 00:00:00 [place] [facility] ical PPSV23 (PNEUMOVAX) Branch Influenza Virus 2014-07-31 Completed Universit y of Vaccine Quad IM 3+ 00:00:00 [facility] TDAP 2014-07-31 Completed University of 00:00:00 [facility] Pneumococcal 2014-07-31 Completed University o f Polysaccharide, 00:00:00 [place] [facility] ical PPSV23 (PNEUMOVAX) Branch Influenza Virus 2014-07-31 Completed Universit y of Vaccine Quad IM 3+ 00:00:00 [facility] TDAP 2014-07-31 Completed University of 00:00:00 [facility] Pneumococcal 2014-07-31 Completed University o f Polysaccharide, 00:00:00 [place] [facility] ical PPSV23 (PNEUMOVAX) Branch Influenza Virus 2014-07-31 Completed Universit y of Vaccine Quad IM 3+ 00:00:00 [facility] TDAP 2014-07-31 Completed University of 00:00:00 [facility] Pneumococcal 2014-07-31 Completed University o f Polysaccharide, 00:00:00 [place] [facility] ical PPSV23 (PNEUMOVAX) Branch Influenza Virus 2014-07-31 Completed Universit y of Vaccine Quad IM 3+ 00:00:00 [facility] TDAP 2014-07-31 Completed University of 00:00:00 [facility] Pneumococcal 2014-07-31 Completed University o f Polysaccharide, 00:00:00 [place] [facility] ical PPSV23 (PNEUMOVAX) Branch Influenza Virus 2014-07-31 Completed Universit y of Vaccine Quad IM 3+ 00:00:00 [facility] TDAP 2014-07-31 Completed University of 00:00:00 [facility] Pneumococcal 2014-07-31 Completed University o f Polysaccharide, 00:00:00 [place] [facility] ical PPSV23 (PNEUMOVAX) Branch Influenza Virus 2014-07-31 Completed Universit y of Vaccine Quad IM 3+ 00:00:00 [facility] TDAP 2014-07-31 Completed University of 00:00:00 [facility] Pneumococcal 2014-07-31 Completed University o f Polysaccharide, 00:00:00 [place] [facility] ical PPSV23 (PNEUMOVAX) Branch Influenza Virus 2014-07-31 Completed Universit y of Vaccine Quad IM 3+ 00:00:00 [facility] TDAP 2014-07-31 Completed University of 00:00:00 [facility] Pneumococcal 2014-07-31 Completed University o f Polysaccharide, 00:00:00 [place] [facility] ical PPSV23 (PNEUMOVAX) Branch Influenza Virus 2014-07-31 Completed Universit y of Vaccine Quad IM 3+ 00:00:00 [facility] TDAP 2014-07-31 Completed University of 00:00:00 [facility] Pneumococcal 2014-07-31 Completed University o f Polysaccharide, 00:00:00 [place] [facility] ical PPSV23 (PNEUMOVAX) Branch Influenza Virus 2014-07-31 Completed Universit y of Vaccine Quad IM 3+ 00:00:00 [facility] TDAP 2014-07-31 Completed University of 00:00:00 [facility] Pneumococcal 2014-07-31 Completed University o f Polysaccharide, 00:00:00 [place] [facility] ical PPSV23 (PNEUMOVAX) Branch Influenza Virus 2014-07-31 Completed Universit y of Vaccine Quad IM 3+ 00:00:00 [facility] TDAP 2014-07-31 Completed University of 00:00:00 [facility] Pneumococcal 2014-07-31 Completed University o f Polysaccharide, 00:00:00 [place] [facility] ical PPSV23 (PNEUMOVAX) Branch Influenza Virus 2014-07-31 Completed Universit y of Vaccine Quad IM 3+ 00:00:00 [facility] TDAP 2014-07-31 Completed University of 00:00:00 [facility] Pneumococcal 2014-07-31 Completed University o f Polysaccharide, 00:00:00 [place] [facility] ical PPSV23 (PNEUMOVAX) Branch Influenza Virus 2014-07-31 Completed Universit y of Vaccine Quad IM 3+ 00:00:00 [facility] TDAP 2014-07-31 Completed University of 00:00:00 [facility] Pneumococcal 2014-07-31 Completed University o f Polysaccharide, 00:00:00 [place] [facility] ical PPSV23 (PNEUMOVAX) Branch Influenza Virus 2014-07-31 Completed Universit y of Vaccine Quad IM 3+ 00:00:00 [facility] TDAP 2014-07-31 Completed University of 00:00:00 [facility] Pneumococcal 2014-07-31 Completed University o f Polysaccharide, 00:00:00 [place] [facility] ical PPSV23 (PNEUMOVAX) Branch Influenza Virus 2014-07-31 Completed Universit y of Vaccine Quad IM 3+ 00:00:00 [facility] TDAP 2014-07-31 Completed University of 00:00:00 [facility] Pneumococcal 2014-07-31 Completed University o f Polysaccharide, 00:00:00 [place] [facility] ical PPSV23 (PNEUMOVAX) Branch Influenza Virus 2014-07-31 Completed Universit y of Vaccine Quad IM 3+ 00:00:00 [facility] TDAP 2014-07-31 Completed University of 00:00:00 [facility] Vital Signs Vital Name Observation Time Observation Value Comments Source Heart rate 2022-12-10 19:12:00 88 /min [facility] [place] [facility] Respiratory rate 2022-12-10 19:12:00 18 /min [facility] ers[facility] [place] [facility] Oxygen saturation in 2022-12-10 19:12:00 100 /min University of Arterial blood by [place] [employer] [facility] Pulse oximetry Branch Systolic blood 2022-12-10 17:00:00 96 mm[Hg] Univer sity of pressure [place] [facility] [place] Diastolic blood 2022-12-10 17:00:00 85 mm[Hg] Unive rsity of pressure [facility] Body temperature 2022-12-10 13:00:00 36.28 [place] Univ ers[facility] [place] [facility] [place] Body weight 2022-12-09 13:00:00 95 kg [facility] [place] [facility] [place] BMI 2022-12-09 13:00:00 39.57 kg/m2 [facility] [place] [facility] [place] Body height 2022-12-07 17:41:00 154.9 cm [facility] [place] [facility] [place] HEIGHT 2022-11-25 03:00:00 154.9 cm WEIGHT 2022-11-25 03:00:00 95.3 kg HEIGHT 2022-11-25 03:00:00 154.9 cm WEIGHT 2022-11-25 03:00:00 95.3 kg Systolic blood 2022-09-09 14:30:00 105 mm[Hg] Univer sity of pressure [facility] Diastolic blood 2022-09-09 14:30:00 78 mm[Hg] Unive rsity of [facility] Heart rate 2022-09-09 14:30:00 95 /min [facility] [place] [facility] Body temperature 2022-09-09 14:30:00 37.22 [place] [facility] [place] [facility] Respiratory rate 2022-09-09 14:30:00 12 /min [facility] [place] [facility] Oxygen saturation in 2022-09-09 14:30:00 93 /min University of Arterial blood by [place] [employer] [facility] Pulse oximetry Branch Body height 2022-09-09 12:41:00 152.4 cm [facility] [place] [facility] [place] Body weight 2022-09-09 12:41:00 98.431 kg [facility] [place] [facility] BMI 2022-09-09 12:41:00 42.38 kg/m2 [facility] [place] [facility] Systolic blood 2022-08-10 22:08:00 129 mm[Hg] Univer sity of pressure [place] [facility] Diastolic blood 2022-08-10 22:08:00 76 mm[Hg] Unive rsity of pressure [place] [facility] Heart rate 2022-08-10 22:08:00 107 /min [facility] [place] [facility] Body temperature 2022-08-10 22:08:00 37.17 [place] [facility] [place] [facility] Respiratory rate 2022-08-10 22:08:00 15 /min [facility] [place] [facility] Oxygen saturation in 2022-08-10 22:08:00 96 /min University of Arterial blood by [employer] michel Pulse oximetry Branch Body weight 2022-08-10 09:00:00 98.5 kg [facility] [place] [facility] BMI 2022-08-10 09:00:00 41.03 kg/m2 [facility] [place] [facility] Body height 2022-08-05 06:47:00 154.9 cm [facility] [place] [facility] Systolic blood 2022-06-05 05:00:00 96 mm[Hg] Univer sity of pressure [place] [facility] Diastolic blood 2022-06-05 05:00:00 66 mm[Hg] Unive rsity of pressure [place] [facility] Heart rate 2022-06-05 05:00:00 82 /min [facility] [place] [facility] Respiratory rate 2022-06-05 05:00:00 13 /min [facility] [place] [facility] Oxygen saturation in 2022-06-05 05:00:00 97 /min University of Arterial blood by [place] [employer] [facility] Pulse oximetry Branch Body temperature 2022-06-05 02:51:00 36.33 Laly [facility] Body height 2022-06-05 02:51:00 154.9 cm [facility] Body weight 2022-06-05 02:51:00 97.523 kg [facility] BMI 2022-06-05 02:51:00 40.62 kg/m2 [facility] Systolic blood 2022-05-13 07:00:00 127 mm[Hg] [facility] Diastolic blood 2022-05-13 07:00:00 84 mm[Hg] [facility] Heart rate 2022-05-13 07:00:00 90 /min [facility] Respiratory rate 2022-05-13 07:00:00 14 /min [facility] Oxygen saturation in 2022-05-13 07:00:00 97 /min [facility] Arterial blood by [facility] michel Pulse oximetry Branch Body temperature 2022-05-13 04:01:00 36.56 Laly [facility] Body height 2022-05-13 04:01:00 154.9 cm [facility] Body weight 2022-05-13 04:01:00 95.255 kg [facility] BMI 2022-05-13 04:01:00 39.68 kg/m2 [facility] Systolic blood 2022-05-02 07:00:00 147 mm[Hg] [facility] Diastolic blood 2022-05-02 07:00:00 90 mm[Hg] [facility] Heart rate 2022-05-02 07:00:00 86 /min [facility] Respiratory rate 2022-05-02 07:00:00 17 /min [facility] Oxygen saturation in 2022-05-02 07:00:00 98 /min [facility] Arterial blood by [facility] michel Pulse oximetry Branch Body temperature 2022-05-02 05:21:00 36.44 Laly [facility] Body height 2022-05-02 05:21:00 154.9 cm [facility] Body weight 2022-05-02 05:21:00 95.255 kg [facility] BMI 2022-05-02 05:21:00 39.68 kg/m2 [facility] Systolic blood 2022-04-29 05:36:00 133 mm[Hg] [facility] Diastolic blood 2022-04-29 05:36:00 85 mm[Hg] [facility] Heart rate 2022-04-29 05:36:00 89 /min [facility] Respiratory rate 2022-04-29 05:36:00 22 /min [facility] Oxygen saturation in 2022-04-29 05:36:00 100 /min [facility] by [place] [employer] [facility] P[facility]xim[facility] Body temperature 2022-04-29 02:44:00 36.56 Laly [facility] Body height 2022-04-29 02:44:00 154.9 cm [facility] Body weight 2022-04-29 02:44:00 95.255 kg [facility] BMI 2022-04-29 02:44:00 39.68 kg/m2 [facility] Systolic blood 2022-02-27 21:00:00 116 mm[Hg] [facility] Diastolic blood 2022-02-27 21:00:00 74 mm[Hg] [facility] Heart rate 2022-02-27 21:00:00 89 /min [facility] Body temperature 2022-02-27 21:00:00 36.61 Laly [facility] Respiratory rate 2022-02-27 21:00:00 18 /min [facility] Oxygen saturation in 2022-02-27 21:00:00 98 /min [facility] Arterial blood by [facility] Pulse oximetry Branch Body weight 2022-02-23 13:00:00 92.987 kg [facility] BMI 2022-02-23 13:00:00 38.73 kg/m2 [facility] Body height 2022-02-21 01:00:00 154.9 cm [facility] Body temperature 2022-02-17 21:50:00 37.17 Laly [facility] Heart rate 2022-02-17 21:42:00 77 /min [facility] Respiratory rate 2022-02-17 21:42:00 18 /min [facility] Oxygen saturation in 2022-02-17 21:42:00 94 /min [facility] [place] [facility] [facility] P[facility] o[facility] Systolic blood 2022-02-17 10:00:00 122 mm[Hg] [facility] Diastolic blood 2022-02-17 10:00:00 69 mm[Hg] [facility] Body weight 2022-02-17 01:00:00 107 kg [facility] BMI 2022-02-17 01:00:00 44.57 kg/m2 [facility] Body height 2022-02-12 09:00:00 154.9 cm [facility] Systolic blood 2022-01-31 16:32:00 136 mm[Hg] [facility] Diastolic blood 2022-01-31 16:32:00 80 mm[Hg] [facility] Heart rate 2022-01-31 16:32:00 84 /min [facility] Body temperature 2022-01-31 16:32:00 37 Laly [facility] Respiratory rate 2022-01-31 16:32:00 10 /min [facility] Oxygen saturation in 2022-01-31 16:32:00 98 /min [facility] Arterial blood by [employer] Pulse oximetry Branch Body weight 2022-01-30 09:00:00 103.964 kg [facility] BMI 2022-01-30 09:00:00 43.31 kg/m2 [facility] Body height 2022-01-28 04:12:00 154.9 cm [facility] Systolic blood 2022-01-13 03:00:00 134 mm[Hg] [facility] Diastolic blood 2022-01-13 03:00:00 94 mm[Hg] [facility] Heart rate 2022-01-13 03:00:00 119 /min [facility] Respiratory rate 2022-01-13 03:00:00 18 /min [facility] Oxygen saturation in 2022-01-13 03:00:00 91 /min [facility] Arterial blood by [employer] michel Pulse oximetry Branch Body temperature 2022-01-12 22:31:00 36.94 Laly [facility] Body height 2022-01-12 22:31:00 154.9 cm [facility] Body weight 2022-01-12 22:31:00 104.327 kg [facility] BMI 2022-01-12 22:31:00 43.46 kg/m2 [facility] Systolic blood 2022-01-12 17:00:00 135 mm[Hg] [facility] Diastolic blood 2022-01-12 17:00:00 65 mm[Hg] [facility] Heart rate 2022-01-12 17:00:00 108 /min [facility] Respiratory rate 2022-01-12 17:00:00 20 /min [facility] Oxygen saturation in 2022-01-12 17:00:00 92 /min [facility] [place] [employer] [facility] P[facility] Branch Body temperature 2022-01-12 09:00:00 36.22 Laly [facility] Body weight 2022-01-03 17:00:00 104.32 kg [facility] BMI 2022-01-03 17:00:00 43.46 kg/m2 [facility] Body height 2022-01-02 09:20:00 154.9 cm [facility] Systolic blood 2021-12-09 05:00:00 123 mm[Hg] [facility] Diastolic blood 2021-12-09 05:00:00 66 mm[Hg] [facility] Heart rate 2021-12-09 05:00:00 96 /min [facility] Respiratory rate 2021-12-09 05:00:00 13 /min [facility] Oxygen saturation in 2021-12-09 05:00:00 96 /min [facility] blood by [place] [employer] [facility] P[facility] oxim[facility] Branch Body temperature 2021-12-09 03:35:00 35.94 Laly [facility] Body height 2021-12-09 03:35:00 154.9 cm [facility] Body weight 2021-12-09 03:35:00 104.327 kg [facility] BMI 2021-12-09 03:35:00 43.46 kg/m2 [facility] Systolic blood 2021-09-23 20:00:00 141 mm[Hg] [facility]iver [facility]ity [facility] Diastolic blood 2021-09-23 20:00:00 83 mm[Hg] Unive rsity [facility] Heart rate 2021-09-23 20:00:00 98 /min [facility] Respiratory rate 2021-09-23 20:00:00 16 /min [facility] in 2021-09-23 20:00:00 97 /min [facility] Arterial blood by [facility] Pulse oximetry Branch Body temperature 2021-09-23 18:00:00 36.61 Laly [facility] Body height 2021-09-22 21:50:[address] [facility] Body weight 2021-09-22 21:50:[address] [facility] BMI 2021-09-22 21:50:00 43.45 kg/m2 [facility] Systolic blood 2022-11-26 12:00:00 132 mm[Hg] [facility] Diastolic blood 2022-11-26 12:00:00 78 mm[Hg] [facility] Heart rate 2022-11-26 12:00:00 88 /min [facility] Respiratory rate 2022-11-26 12:00:00 12 /min [facility] Oxygen saturation in 2022-11-26 12:00:00 98 /min [facility] Arterial blood by Medical nter Pulse oximetry Body temperature 2022-11-26 08:00:00 36.61 Laly [facility] Body height 2022-11-25 03:00:00 154.9 cm [facility] Body weight 2022-11-25 03:00:00 95.3 kg [facility] BMI 2022-11-25 03:00:00 39.70 kg/m2 [facility] Procedures Procedure Date / Time Performing Clinician Source Performed POCT GLUCOSE (AUTOMATED) 2022-12-10 16:54:00 Lv Liz [facility] POCT GLUCOSE (AUTOMATED) 2022-12-10 12:46:00 Lv Liz [facility] MAGNESIUM 2022-12-10 09:38:00 Lisa Fritz [facility] BASIC METABOLIC PANEL 2022-12-10 09:38:00 Juvenal [facility] (NA, K, CL, CO2, GLUCOSE, Medica l Branch BUN, CREATININE, CA) CBC WITHOUT DIFF 2022-12-10 09:38:00 Juvenal [facility] POCT GLUCOSE (AUTOMATED) 2022-12-10 09:37:00 Lv Liz [facility] POCT GLUCOSE (AUTOMATED) 2022-12-10 05:23:00 Lv Liz [facility] XR CHEST 1 VW 2022-12-10 02:23:00 Duane Ireland [facility] POCT GLUCOSE (AUTOMATED) 2022-12-10 01:20:00 Lv Liz [facility] POCT GLUCOSE (AUTOMATED) 2022-12-09 21:01:00 Lv Liz [facility] HB ECG ROUTINE & RHYTHM 2022-12-09 17:31:01 Raina Tyson [facility] POCT GLUCOSE (AUTOMATED) 2022-12-09 17:08:00 Lv Liz [facility] POCT GLUCOSE (AUTOMATED) 2022-12-09 12:57:00 Lv Liz [facility] BASIC METABOLIC PANEL 2022-12-09 09:12:00 Raad Sanford [facility] (NA, K, CL, CO2, GLUCOSE, Medica l Branch BUN, CREATININE, CA) CBC WITHOUT DIFF 2022-12-09 09:12:00 Juvenal [facility] AC PANEL 20 + LACTIC ACID 2022-12-09 09:03:00 Lisa Fritz [facility] POCT GLUCOSE (AUTOMATED) 2022-12-09 04:30:00 Lv Liz [facility] AC PANEL 20 + LACTIC ACID 2022-12-09 03:45:00 Vivek Meneses Un [facility] POCT GLUCOSE (AUTOMATED) 2022-12-09 00:36:00 Lv [facility] POCT GLUCOSE (AUTOMATED) 2022-12-08 22:07:00 Lv [facility] POCT GLUCOSE (AUTOMATED) 2022-12-08 12:57:00 Lv Liz [facility] CBC WITHOUT DIFF 2022-12-08 11:48:00 Raad [facility] LIPASE 2022-12-08 09:46:00 Carmelita Smith [facility] MAGNESIUM 2022-12-08 09:46:00 Vivek Meneses [facility] BASIC METABOLIC PANEL 2022-12-08 09:46:00 Vivek Meneses [facility] (NA, K, CL, CO2, GLUCOSE, Medica l Branch BUN, CREATININE, CA) POCT GLUCOSE (AUTOMATED) 2022-12-08 08:58:00 Lv Liz [facility] POCT GLUCOSE (AUTOMATED) 2022-12-08 04:43:00 Lv Liz [facility] POCT GLUCOSE (AUTOMATED) 2022-12-08 00:56:00 LizHeavennccrow [facility] POCT GLUCOSE (AUTOMATED) 2022-12-07 21:50:00 Lv Liz [facility] CBC WITHOUT DIFF 2022-12-07 21:31:00 Juvenal [facility] GLYCOSYLATED HEMOGLOBIN 2022-12-07 21:31:00 Raad Sanford [facility] (A1C) [facility] XR CHEST 1 VW 2022-12-07 19:38:00 Juvenal [facility] MRSA / MSSA SCREEN BY 2022-12-07 18:01:00 Raad Sanford [facility] PCR, NARES [facility] ACUTE CARE ARTERIAL BLOOD 2022-12-07 18:00:00 Raad Sanford [facility] GAS [facility] POCT-GLUCOSE METER 2022-11-26 10:10:[address] [facility] XR CHEST 1 VIEW PORTABLE 2022-11-26 09:14:00 Lira, [facility] Center CBC W/PLT COUNT & AUTO 2022-11-26 06:01:00 Charlie [facility] COMPREHENSIVE METABOLIC 2022-11-26 06:01:00 Charlie [facility] MAGNESIUM 2022-11-26 06:01:00 Charlie [facility] CBC W/PLT COUNT & AUTO 2022-11-26 06:01:00 Charlie [facility] POCT-GLUCOSE METER 2022-11-25 23:20:00 Charlie [facility] CBC W/PLT COUNT & AUTO 2022-11-25 16:53:00 Charlie [facility] COMPREHENSIVE METABOLIC 2022-11-25 16:53:00 Charlie [facility] MAGNESIUM 2022-11-25 16:53:00 Charlie [facility] HEMOGLOBIN A1C 2022-11-25 16:53:00 Charlie [facility] TSH/FREE T4 IF INDICATED 2022-11-25 16:53:00 Charlie [facility] B-TYPE NATRIURETIC FACTOR 2022-11-25 16:53:00 Charlie [facility] (BNP) [place] T4, FREE 2022-11-25 16:53:00 Charlie [facility] CBC W/PLT COUNT & AUTO 2022-11-25 16:53:00 Charlie [facility] POCT-GLUCOSE METER 2022-11-25 16:32:00 Charlie [facility] POCT-GLUCOSE METER 2022-11-25 09:08:00 [facility] 2022-11-25 00:00:00 Srinivas [facility] TROPONIN I 2022-09-09 13:20:[address] [facility] Medical Branch COMP. METABOLIC PANEL 2022-09-09 13:20:00 Joslyn Ruelas [facility] ([id number]) Medical Branch CBC WITH DIFF 2022-09-09 13:20:00 Joslyn Ruelas [facility] RAPID INFLUENZA A/B 2022-09-09 13:20:00 Joslyn Ruelas [facility] N-TERMINAL PRO-BNP 2022-09-09 13:20:00 Joslyn Ruelas [facility] COVID-19 (ID NOW RAPID 2022-09-09 13:20:00 Joslyn Ruelas [facility] TESTING) [facility] CONSENT/REFUSAL FOR 2022-09-09 12:19:48 Doctor Unassigned, [facility] DIAGNOSIS AND TREATMENT [place] [facility] POCT GLUCOSE (AUTOMATED) 2022-08-10 17:15:00 [facility] 2022-08-10 13:45:00 Jonas Hernandez [facility] POCT GLUCOSE (AUTOMATED) 2022-08-10 09:17:00 [facility]SE (AUTOMATED) 2022-08-10 06:01:00 [facility] GLUCOSE (AUTOMATED) 2022-08-10 02:09:00 [facility] PO[facility]UCOSE (AUTOMATED) 2022-08-09 22:26:00 Jonas Hernandez [facility] XR CHEST 1 VW 2022-08-09 19:47:37 Lv Liz [facility] XR CHEST 1 VW 2022-08-09 14:07:17 [facility]) 2022-08-09 13:17:00 Jonas Hernandez Uni versity [facility] PHOSPHORUS 2022-08-09 11:24:00 Corey Gonzalez [facility] MAGNESIUM 2022-08-09 11:24:00 Carlos [facility] BASIC METABOLIC PANEL 2022-08-09 11:24:00 Corey Gonzalez [facility] (NA, K, CL, CO2, GLUCOSE, Medica l Branch BUN, CREATININE, CA) CBC WITH DIFF 2022-08-09 11:24:00 Corey Gonzalez [facility] POCT GLUCOSE (AUTOMATED) 2022-08-09 11:22:00 Jonas Hernandez versity of [facility] POCT GLUCOSE (AUTOMATED) 2022-08-09 06:16:00 Jonas Hernandez Uni versity of [facility] POCT GLUCOSE (AUTOMATED) 2022-08-09 02:24:00 Jonas Hernandez Uni versity of [facility] POCT GLUCOSE (AUTOMATED) 2022-08-08 22:31:00 Jonas Hernandez Uni versity of [facility] POCT GLUCOSE (AUTOMATED) 2022-08-08 17:30:00 Jonas Hernandez vers[facility] of [facility] POCT GLUCOSE (AUTOMATED) 2022-08-08 13:20:00 Jonas Hernandez Uni versity of [facility] POCT GLUCOSE (AUTOMATED) 2022-08-08 09:51:00 Jonas Hernandez Uni versity of [facility] POCT GLUCOSE (AUTOMATED) 2022-08-08 06:10:00 Jonas Hernandez Uni versity of [facility] POCT GLUCOSE (AUTOMATED) 2022-08-08 02:37:00 Jonas Hernandez Uni versity of [facility] POCT GLUCOSE (AUTOMATED) 2022-08-07 22:16:00 Jonas Hernandez Uni versity of [facility] POCT GLUCOSE (AUTOMATED) 2022-08-07 17:26:00 Jonas Hernandez Uni versity of [facility] TRANSTHORACIC ECHO (TTE) 2022-08-07 16:31:00 Stella Ivory versity of [facility] W/ CONTRAST Medical [facility] POCT GLUCOSE (AUTOMATED) 2022-08-07 13:42:00 Jonas Hernandez vers[facility] of [facility] PHOSPHORUS 2022-08-07 11:00:00 Corey Gonzalez [facility] MAGNESIUM 2022-08-07 11:00:00 Corey Gonzalez [facility] BILI UNCONJUGATED/BILI 2022-08-07 11:00:00 Abdullah, Corey [facility] TROPONIN I 2022-08-07 11:00:00 Carlos [facility] THYROID STIMULATING 2022-08-07 11:00:00 Corey Gonzalez [facility] HORMONE [facility] COMP. METABOLIC PANEL 2022-08-07 11:00:00 Jonas Hernandez [facility] ([id number]) [facility] CBC WITH DIFF 2022-08-07 11:00:00 Carlos [facility] N-TERMINAL PRO-BNP 2022-08-07 11:00:00 Corey Gonzalez [facility] ACUTE CARE VENOUS BLOOD 2022-08-07 10:59:00 Jonas Hernandez [facility] POCT GLUCOSE (AUTOMATED) 2022-08-07 10:17:00 Jonas Hernandez [facility] POCT GLUCOSE (AUTOMATED) 2022-08-07 05:38:00 Jonas Hernandez [facility] POCT GLUCOSE (AUTOMATED) 2022-08-07 02:06:00 Jonas Hernandez [facility] POCT GLUCOSE (AUTOMATED) 2022-08-06 22:27:00 Jonas Hernandez [facility] POCT GLUCOSE (AUTOMATED) 2022-08-06 17:15:00 Jonas Hernandez [facility] CT THORAX W CONTRAST 2022-08-06 16:53:51 Anish Walters [facility] CORTISOL AM 2022-08-06 13:33:00 Jonas Hernandez [facility] CBC WITH DIFF 2022-08-06 13:33:00 Jonas Hernandez [facility] LACTIC ACID WHOLE BLOOD 2022-08-06 13:33:00 Jonas Hernandez [facility] POCT GLUCOSE (AUTOMATED) 2022-08-06 13:27:00 Jonas Hernandez [facility] POCT GLUCOSE (AUTOMATED) 2022-08-06 10:37:00 Jonas Hernandez [facility] PHOSPHORUS 2022-08-06 10:25:00 Jonas Hernandez [facility] CREATINE KINASE 2022-08-06 10:25:00 Jonas Hernandez [facility] MAGNESIUM 2022-08-06 10:25:00 Mary agus [facility] TROPONIN I 2022-08-06 10:25:00 Mary agus [facility] COMP. METABOLIC PANEL 2022-08-06 10:25:00 Jonas Hernandez [facility] ([id number]) [facility] ACUTE CARE VENOUS BLOOD 2022-08-06 10:25:00 Mary agus [facility] N-TERMINAL PRO-BNP 2022-08-06 10:25:00 Mary agus [facility] POCT GLUCOSE (AUTOMATED) 2022-08-06 06:54:00 Jonas Hernandez [facility] POCT GLUCOSE (AUTOMATED) 2022-08-06 02:30:00 Jonas Hernandez [facility] POCT GLUCOSE (AUTOMATED) 2022-08-05 22:59:00 Jonas Hernandez [facility] TROPONIN I 2022-08-05 22:00:00 Mary agus [facility] URINALYSIS 2022-08-05 21:45:00 Carlos [facility] URINE CULTURE 2022-08-05 21:45:00 Carlos [facility] POCT GLUCOSE (AUTOMATED) 2022-08-05 17:53:00 Jonas Hernandez [facility] POCT GLUCOSE (AUTOMATED) 2022-08-05 13:19:00 Jonas Hernandez [facility] XR CHEST 1 VW 2022-08-05 12:59:00 Mary agus [facility] LEGIONELLA URINARY 2022-08-05 11:12:[address] [facility] ANTIGEN [facility] RESPIRATORY PANEL BY PCR 2022-08-05 11:12:00 Jonas Hernandez [facility] URINE CULTURE 2022-08-05 11:11:00 Jonas Hernandez [facility] SODIUM, URINE RANDOM 2022-08-05 11:11:00 Jonas Hernandez [facility] PNEUMOCOCCAL ANTIGEN 2022-08-05 11:11:00 Mary agus [facility] PROTEIN CREAT RATIO URINE 2022-08-05 11:11:00 Jonas Hernandez [facility] RANDOM Medical Branch OSMOLALITY URINE 2022-08-05 11:10:00 Mary [facility] MRSA / MSSA SCREEN BY 2022-08-05 11:09:00 aMry agus [facility] PCR, NARES [facility] PHOSPHORUS 2022-08-05 11:08:00 Mary [facility] CREATINE KINASE 2022-08-05 11:08:00 Mary [facility] MAGNESIUM 2022-08-05 11:08:00 Mary [facility] TROPONIN I 2022-08-05 11:08:00 Mary [facility] COMP. METABOLIC PANEL 2022-08-05 11:08:00 Mary [facility] ([id number]) [facility] LIPID PANEL ([id number])(TOTAL 2022-08-05 11:08:00 Jonas Hernandez [facility] CHOLESTEROL, [facility] TRIGLYCERIDES, HDL) SEDIMENTATION RATE 2022-08-05 11:08:00 Mary agus [facility] GLYCOSYLATED HEMOGLOBIN 2022-08-05 11:08:00 Mary [facility] (A1C) [facility] URINALYSIS 2022-08-05 11:08:00 Mary [facility] MYCOPLASMA PNEUMONIAE 2022-08-05 11:08:00 Mary [facility] ANTIBODY, IGM Medical Branch N-TERMINAL PRO-BNP 2022-08-05 11:08:00 Mary [facility] PROCALCITONIN 2022-08-05 11:08:00 Mary [facility] AC PANEL 20 + LACTIC ACID 2022-08-05 10:56:00 Jonas Hernandez [facility] ASSIGNMENT OF BENEFITS 2022-08-05 06:59:31 Doctor Unassigned, [facility] [place] [facility] CONSENT/REFUSAL FOR 2022-08-05 06:58:52 Doctor Unassigned, [facility] DIAGNOSIS AND TREATMENT [place] [facility] XR CHEST 1 VW 2022-06-05 04:10:06 Singer [facility] TROPONIN I 2022-06-05 03:21:00 Singer [facility] COMP. METABOLIC PANEL 2022-06-05 03:21:00 Singer [facility] ([id number]) [facility] CBC WITH DIFF 2022-06-05 03:21:00 Singer [facility] RAPID INFLUENZA A/B 2022-06-05 03:21:00 Singer [facility] N-TERMINAL PRO-BNP 2022-06-05 03:21:00 Singer [facility] COVID-19 (ID NOW RAPID 2022-06-05 03:21:00 Singer [facility] TESTING) Medical Branch CONSENT/REFUSAL FOR 2022-06-05 02:20:45 Doctor Unassigned, [facility] DIAGNOSIS AND TREATMENT [place] [facility] [place] TROPONIN I 2022-05-13 07:08:00 Paula Rowe [facility] CT CHEST PULMONARY 2022-05-13 06:13:[address] [facility] ANGIOGRAM Medical Branch XR CHEST 1 VW 2022-05-13 04:42:45 Paula Rowe [facility] BLOOD CULTURE SCREEN 2022-05-13 04:10:00 Paula Rowe [facility] TROPONIN I 2022-05-13 04:10:00 Jae Paula [facility] COMP. METABOLIC PANEL 2022-05-13 04:10:00 Paula Rowe [facility] ([id number]) Medical Branch CBC WITH DIFF 2022-05-13 04:10:00 Jae Paula [facility] PROTHROMBIN TIME / INR 2022-05-13 04:10:00 Paula Rowe [facility] ACTIVATED PARTIAL 2022-05-13 04:10:00 Paula Rowe [facility] THRMPLAS [facility] RAPID INFLUENZA A/B 2022-05-13 04:10:[address] [facility] N-TERMINAL PRO-BNP 2022-05-13 04:10:00 Paula Rowe [facility] COVID-19 (ID NOW RAPID 2022-05-13 04:10:00 Paula Rowe [facility] TESTING) Medical Branch AC PANEL 21 + LACTIC ACID 2022-05-02 06:08:00 Sanjay Henry [facility] XR CHEST 1 VW 2022-05-02 05:52:00 Sanjay Henry [facility] URINALYSIS 2022-05-02 05:44:00 Sanjay Henry [facility] MAGNESIUM 2022-05-02 05:43:00 Sanjay Henry [facility] TROPONIN I 2022-05-02 05:43:00 Sanjay Henry [facility] COMP. METABOLIC PANEL 2022-05-02 05:43:00 Sanjay Henry [facility] ([id number]) [facility] CBC WITH DIFF 2022-05-02 05:43:00 Sanjay Henry [facility] N-TERMINAL PRO-BNP 2022-05-02 05:43:00 Sanjay Henry [facility] CONSENT/REFUSAL FOR 2022-05-02 05:16:55 Doctor Unassigned, [facility] DIAGNOSIS AND TREATMENT [place] [facility] COVID-19 (ID NOW RAPID 2022-04-29 03:43:00 Paula Rowe [facility] TESTING) [facility] [place] CT ABDOMEN PELVIS WO 2022-04-29 03:38:06 Paula Rowe [facility] CONTRAST [facility] XR CHEST 1 VW 2022-04-29 03:23:24 Paula Rowe [facility] TROPONIN I 2022-04-29 02:49:00 Paula Rowe [facility] COMP. METABOLIC PANEL 2022-04-29 02:49:00 Paula Rowe [facility] ([id number]) [facility] [place] CBC WITH DIFF 2022-04-29 02:49:00 Paula Rowe [facility] PROTHROMBIN TIME / INR 2022-04-29 02:49:00 Paula Rowe [facility] ACTIVATED PARTIAL 2022-04-29 02:49:00 Paula Rowe [facility] N-TERMINAL PRO-BNP 2022-04-29 02:49:00 Paula Rowe [facility] POCT GLUCOSE (AUTOMATED) 2022-02-27 20:30:00 Kevin Lebron [facility] POCT GLUCOSE (AUTOMATED) 2022-02-27 16:16:00 Kevin Lebron [facility] POCT GLUCOSE (AUTOMATED) 2022-02-27 12:27:00 Kevin Lebron [facility] POCT GLUCOSE (AUTOMATED) 2022-02-26 21:42:00 Kevin Lebron [facility] POCT GLUCOSE (AUTOMATED) 2022-02-26 17:49:00 Kevin Lebron [facility] POCT GLUCOSE (AUTOMATED) 2022-02-26 14:27:00 Kevin Lebron [facility] MAGNESIUM 2022-02-26 08:50:00 Artie [facility] BASIC METABOLIC PANEL 2022-02-26 08:50:00 Artie Rodriguez [facility] (NA, K, CL, CO2, GLUCOSE, Medica l Branch BUN, CREATININE, CA) POCT GLUCOSE (AUTOMATED) 2022-02-26 01:26:00 Kevin Lebron [facility] POCT GLUCOSE (AUTOMATED) 2022-02-25 20:40:00 Kevin Lebron [facility] POCT GLUCOSE (AUTOMATED) 2022-02-25 16:39:00 Kevin Lebron [facility] ACUTE CARE ARTERIAL BLOOD 2022-02-25 14:04:00 [facility] ([facility]OMATED) 2022-02-25 12:51:00 Kevin Lebron [facility] PHOSPHORUS 2022-02-25 11:01:00 [facility] 2022-02-25 11:01:00 Lam [facility] BASIC METABOLIC PANEL 2022-02-25 11:01:00 Lam [facility] (NA, K, CL, CO2, GLUCOSE, Medica l Branch BUN, CREATININE, CA) POCT GLUCOSE (AUTOMATED) 2022-02-25 01:24:00 Kevin Lebron [facility] POCT GLUCOSE (AUTOMATED) 2022-02-24 20:49:00 Kevin Lebron [facility] POCT GLUCOSE (AUTOMATED) 2022-02-24 16:52:00 Kevin Lebron [facility] ACUTE CARE ARTERIAL BLOOD 2022-02-24 16:42:00 Isma Cortez [facility] POCT GLUCOSE (AUTOMATED) 2022-02-24 13:24:00 Kevin Lebron [facility] TROPONIN I 2022-02-24 12:34:00 [facility] BAS[facility] MET[facility]OLIC PANEL 2022-02-24 12:34:00 Lisa Fritz [facility] (NA, K, CL, CO2, GLUCOSE, Medica l Branch BUN, CREATININE, CA) HB ECG ROUTINE & RHYTHM 2022-02-24 12:23:17 Lisa Fritz [facility] LACTIC ACID WHOLE BLOOD 2022-02-24 03:13:00 Britt Gabriel [facility] POCT GLUCOSE (AUTOMATED) 2022-02-24 01:20:00 Kevin Lebron [facility] XR KUB 2022-02-24 00:31:00 Isma Cortez [facility] POCT GLUCOSE (AUTOMATED) 2022-02-23 22:34:00 Kevin Lebron [facility] POCT GLUCOSE (AUTOMATED) 2022-02-23 21:46:00 Kevin Lebron [facility] XR CHEST 1 VW 2022-02-23 19:26:00 Isma Cortez [facility] AC PANEL 20 + LACTIC ACID 2022-02-23 18:02:00 Isma Cortez [facility] POCT GLUCOSE (AUTOMATED) 2022-02-23 17:19:00 Kevin Lebron [facility] POCT GLUCOSE (AUTOMATED) 2022-02-23 13:22:00 Kevin Lebron [facility] POCT GLUCOSE (AUTOMATED) 2022-02-22 21:55:00 Kevin Lebron [facility] POCT GLUCOSE (AUTOMATED) 2022-02-22 18:22:00 Kevin Lebron [facility] CBC WITH DIFF 2022-02-22 11:32:00 Joshua [facility] MAGNESIUM 2022-02-22 11:31:00 Joshua [facility] BASIC METABOLIC PANEL 2022-02-22 11:31:00 Joshua [facility] (NA, K, CL, CO2, GLUCOSE, Medica l Branch BUN, CREATININE, CA) XR CHEST 1 VW 2022-02-22 09:34:00 Joshua [facility] POCT GLUCOSE (AUTOMATED) 2022-02-22 01:20:00 Kevin Lebron [facility] POCT GLUCOSE (AUTOMATED) 2022-02-21 21:53:00 Kevin Lebron [facility] CBC WITHOUT DIFF 2022-02-21 15:46:00 Britt [facility] POCT GLUCOSE (AUTOMATED) 2022-02-21 14:26:00 Kevin Lebron [facility] URINALYSIS 2022-02-21 08:27:00 Joshua [facility] URINE CULTURE 2022-02-21 08:27:00 Joshua [facility] MAGNESIUM 2022-02-21 08:06:00 Joshua [facility] BASIC METABOLIC PANEL 2022-02-21 08:06:00 Joshua [facility] (NA, K, CL, CO2, GLUCOSE, Medica l Branch BUN, CREATININE, CA) CBC WITH DIFF 2022-02-21 08:06:00 Joshua [facility] MRSA / MSSA SCREEN BY 2022-02-21 03:21:00 Chase Ny [facility] (AUTOM[facility]) 2022-02-21 02:31:00 Kevin Lebron [facility] BLOOD CULTURE SCREEN 2022-02-21 01:58:00 Joshua [facility] BLOOD CULTURE SCREEN 2022-02-21 01:49:00 Joshua [facility] XR CHEST 1 VW 2022-02-20 23:44:00 Kevin [facility] ACUTE CARE ARTERIAL BLOOD 2022-02-20 23:23:00 Chase Ny [facility] GAS [facility] XR CHEST 1 VW 2022-02-20 20:39:00 Paula Rowe [facility] TROPONIN I 2022-02-20 20:17:00 Paula Rowe [facility] COMP. METABOLIC PANEL 2022-02-20 20:17:00 Paula Rowe [facility] ([id number]) [facility] [place] CBC WITH DIFF 2022-02-20 20:17:00 Paula Rowe [facility] PROTHROMBIN TIME / INR 2022-02-20 20:17:00 Paula Rowe [facility] ACTIVATED PARTIAL 2022-02-20 20:17:00 Paula Rowe [facility] N-TERMINAL PRO-BNP 2022-02-20 20:17:00 Paula Rowe [facility] COVID-19 (ID NOW RAPID 2022-02-20 20:07:00 Paula Rowe [facility] TESTING) Medical Branch LAB ONLY COVID 2022-02-20 20:07:00 Paula Rowe [facility] HB ECG ROUTINE & RHYTHM 2022-02-20 20:06:49 Paula Rowe [facility] STRIP [facility] CONSENT/REFUSAL FOR 2022-02-20 19:58:43 Doctor Unassigned, [facility] DIAGNOSIS AND TREATMENT [place] [facility] [place] EMERGENCY DEPARTMENT 2022-02-20 05:01:00 Doctor Unasssheila, [facility] DOCUMENTS [place] [facility] [place] H[facility]PITAL ADMISSION 2022-02-20 05:01:00 Doctor Unasssheila, [facility] [place] POCT GLUCOSE (AUTOMATED) 2022-02-17 21:44:00 Terminella, [facility] POCT GLUCOSE (AUTOMATED) 2022-02-17 17:09:00 Terminella, Valer[facility] POCT GLUCOSE (AUTOMATED) 2022-02-17 13:06:00 Terminella, Valeriano [facility] XR CHEST 1 VW 2022-02-17 11:51:08 Nathaniel [facility] MAGNESIUM 2022-02-17 09:13:00 Nathaniel [facility] BASIC METABOLIC PANEL 2022-02-17 09:13:00 [facility] ([facility], K, CL, CO2, GLUCOSE, Medica l Branch BUN, CREATININE, CA) CBC WITH DIFF 2022-02-17 09:13:00 Armstrong [facility] ACUTE CARE ARTERIAL BLOOD 2022-02-17 09:02:00 Kayla Armstrong [facility] GAS [facility] POCT GLUCOSE (AUTOMATED) 2022-02-17 00:49:00 Terminella, Valeriano [facility] XR CHEST 1 VW 2022-02-16 23:15:00 [facility] ([facility]OMATED) 2022-02-16 21:46:00 Terminella, Valeriano [facility] POCT GLUCOSE (AUTOMATED) 2022-02-16 16:59:00 Terminella, [facility] POCT GLUCOSE (AUTOMATED) 2022-02-16 13:05:00 Terminella, Val[facility] POCT GLUCOSE (AUTOMATED) 2022-02-16 08:32:00 Terminella, Valeriano [facility] POCT GLUCOSE (AUTOMATED) 2022-02-16 04:29:00 Terminella, Val[facility] POCT GLUCOSE (AUTOMATED) 2022-02-16 00:39:00 Terminella, Val[facility]iano [facility] POCT GLUCOSE (AUTOMATED) 2022-02-15 21:14:00 Terminella, Val[facility] POCT GLUCOSE (AUTOMATED) 2022-02-15 16:58:00 Terminella, Val[facility]iano [facility] POCT GLUCOSE (AUTOMATED) 2022-02-15 12:45:00 Terminella, Val[facility]iano [facility] POCT GLUCOSE (AUTOMATED) 2022-02-15 08:02:00 Terminella, Valeriano [facility] MAGNESIUM 2022-02-15 07:56:00 Roberto Murdock [facility] COMP. METABOLIC PANEL 2022-02-15 07:56:00 Roberto Murdock [facility] ([id number]) [facility] CBC WITHOUT DIFF 2022-02-15 07:56:00 [facility]SE (AUTOMATED) 2022-02-15 04:15:00 Terminella, Val[facility] POCT GLUCOSE (AUTOMATED) 2022-02-15 00:48:00 Terminella, Valeriano [facility] POCT GLUCOSE (AUTOMATED) 2022-02-14 21:22:00 Terminella, Val[facility] POCT GLUCOSE (AUTOMATED) 2022-02-14 19:37:00 Terminella, Val[facility] POCT GLUCOSE (AUTOMATED) 2022-02-14 16:28:00 Terminella, Valeriano [facility] POCT GLUCOSE (AUTOMATED) 2022-02-14 14:17:00 Terminella, Valeriano [facility] XR CHEST 1 VW 2022-02-14 11:42:00 Nathaniel Kayla [facility] MAGNESIUM 2022-02-14 09:56:00 Kayla Armstrong [facility] COMP. METABOLIC PANEL 2022-02-14 09:56:00 Kayla Armstrong [facility] ([id number]) Medical Branch CBC WITH DIFF 2022-02-14 09:56:00 Kayla Armstrong [facility] ACUTE CARE ARTERIAL BLOOD 2022-02-14 08:33:00 [facility] 2022-02-14 08:17:00 [facility] ([facility]OMATED) 2022-02-14 04:25:00 Terminella, [facility]-12 LEAD 2022-02-14 04:11:18 Doctor Unassigned, [facility] [place] [facility] POCT GLUCOSE (AUTOMATED) 2022-02-14 00:55:00 Terminella, [facility]SE (AUTOMATED) 2022-02-13 22:29:00 Terminella, Valeriano [facility] POCT GLUCOSE (AUTOMATED) 2022-02-13 17:29:00 Terminella, Valeriano [facility] POCT GLUCOSE (AUTOMATED) 2022-02-13 15:52:00 [facility]inella, [facility] ARTERIAL BLOOD 2022-02-13 14:22:00 [facility] ([facility]OMATED) 2022-02-13 14:07:00 Terminella, Valeriano [facility] DUPLEX VENOUS LEGS 2022-02-13 14:00:43 Roberto Murdock [facility] BILATERAL - BY VASCULAR [facility] LAB POCT GLUCOSE (AUTOMATED) 2022-02-13 12:45:00 Terminella, [facility] GLUCOSE (AUTOMATED) 2022-02-13 11:43:00 Terminella, Valeriano [facility] MAGNESIUM 2022-02-13 10:33:00 [facility] BASIC METABOLIC PANEL 2022-02-13 10:33:00 Murdock [facility] ([facility], K, CL, CO2, GLUCOSE, Medica l Branch BUN, CREATININE, CA) CBC WITH DIFF 2022-02-13 10:33:00 Term[facility]January [facility] POCT GLUCOSE (AUTOMATED) 2022-02-13 09:42:00 Terminella, Valeriano [facility] POCT GLUCOSE (AUTOMATED) 2022-02-13 08:46:00 Terminella, Valeriano [facility] POCT GLUCOSE (AUTOMATED) 2022-02-13 07:59:00 Terminella, Valeriano [facility] POCT GLUCOSE (AUTOMATED) 2022-02-13 06:56:00 Terminella, Valeriano [facility] POCT GLUCOSE (AUTOMATED) 2022-02-13 05:57:00 Terminella, Val[facility]iano [facility] POCT GLUCOSE (AUTOMATED) 2022-02-13 03:36:00 Terminella, Valer[facility] BASIC METABOLIC PANEL 2022-02-13 03:30:00 Murdock, Roberto [facility] [place] (NA, K, CL, CO2, GLUCOSE, Medica l Branch BUN, CREATININE, CA) POCT GLUCOSE (AUTOMATED) 2022-02-13 02:46:00 Terminella, Valeriano [facility] POCT GLUCOSE (AUTOMATED) 2022-02-13 01:37:00 Terminella, Valeriano [facility] POCT GLUCOSE (AUTOMATED) 2022-02-13 00:34:00 Terminella, Valeriano [facility] POCT GLUCOSE (AUTOMATED) 2022-02-12 23:25:00 Terminella, Valeriano [facility] POCT GLUCOSE (AUTOMATED) 2022-02-12 22:20:00 Terminella, Valeriano [facility] POCT GLUCOSE (AUTOMATED) 2022-02-12 21:02:00 Terminella, Valeriano [facility] BASIC METABOLIC PANEL 2022-02-12 20:39:00 Murdock, Roberto [facility] (NA, K, CL, CO2, GLUCOSE, Medica l Branch BUN, CREATININE, CA) POCT GLUCOSE (AUTOMATED) 2022-02-12 20:02:00 [facility]ella, [facility]UCOSE (AUTOMATED) 2022-02-12 19:06:00 Terminella, [facility] POCT GLUCOSE (AUTOMATED) 2022-02-12 18:09:00 Terminella, Valeriano [facility] POCT GLUCOSE (AUTOMATED) 2022-02-12 17:17:00 Terminella, [facility] SPUT[facility] CULTURE 2022-02-12 16:29:00 [facility] BASIC METABOLIC PANEL 2022-02-12 16:16:00 Kayla Armstrong [facility] (NA, K, CL, CO2, GLUCOSE, Medica l Branch BUN, CREATININE, CA) POCT GLUCOSE (AUTOMATED) 2022-02-12 16:11:00 Terminella, [facility]CT GLUCOSE (AUTOMATED) 2022-02-12 14:14:00 Terminella, Valeriano [facility] POCT GLUCOSE (AUTOMATED) 2022-02-12 13:17:00 Terminella, Valeriano [facility] POCT GLUCOSE (AUTOMATED) 2022-02-12 12:42:00 Terminella, [facility] BASIC METABOLIC PANEL 2022-02-12 12:18:00 [facility] (NA, K, CL, CO2, GLUCOSE, Medica l Branch BUN, CREATININE, CA) POCT GLUCOSE (AUTOMATED) 2022-02-12 12:17:00 Terminella, Valeriano [facility] POCT GLUCOSE (AUTOMATED) 2022-02-12 11:15:00 Terminella, Valeriano [facility] POCT GLUCOSE (AUTOMATED) 2022-02-12 10:12:00 Term[facility]ella, [facility] PO[facility] GLUCOSE (AUTOMATED) 2022-02-12 09:12:[address] [facility] MRSA / MSSA SCREEN BY 2022-02-12 08:23:00 [facility] PCR, NARES [facility] [place] AC PANEL 20 + LACTIC ACID 2022-02-12 08:22:00 Scarlett [facility] PHOSPHORUS 2022-02-12 08:21:00 Scarlett [facility] MAGNESIUM 2022-02-12 08:21:00 [facility] OSMOLALITY, SERUM OR 2022-02-12 08:21:00 [facility] BETA HYDROXY-BUTYRATE 2022-02-12 08:21:00 [facility] BASIC METABOLIC PANEL 2022-02-12 08:21:00 [facility] (NA, K, CL, CO2, GLUCOSE, Medica l Branch BUN, CREATININE, CA) CBC WITH DIFF 2022-02-12 08:21:00 [facility] GLYCOSYLATED HEMOGLOBIN 2022-02-12 08:21:00 [facility] (A1C) [facility] POCT GLUCOSE (AUTOMATED) 2022-02-12 04:53:00 Paula Rowe [facility] URINE DRUG (IMMUNOASSAY) 2022-02-12 04:24:00 Paula Rowe [facility] DRUG [facility] ER SCREEN W/O REFLEX URINALYSIS 2022-02-12 04:23:00 Paula Rowe [facility] POCT GLUCOSE (AUTOMATED) 2022-02-12 04:12:00 Paula Rowe [facility] CT CHEST PULMONARY 2022-02-12 02:41[facility]40 [facility] CT ABDOMEN PELVIS W 2022-02-12 02:39:36 Paula Rowe [facility] CONTRAST [facility] CT HEAD WO CONTRAST 2022-02-12 02:39:[address] [facility] XR CHEST 1 VW 2022-02-12 02:08:38 Paula Rowe [facility] AC PANEL 20 + LACTIC ACID 2022-02-12 01:59:00 Paula Rowe [facility] AMMONIA, PLASMA 2022-02-12 01:18:00 Paula Rowe [facility] BLOOD CULTURE SCREEN 2022-02-12 01:16:00 Paula Rowe [facility] COVID-19 (ID NOW RAPID 2022-02-12 01:16:00 Paula Rowe [facility] TESTING) [facility] [place] LAB ONLY COVID 2022-02-12 01:16:00 Paula Rowe [facility] INTERPRETATION [facility] BLOOD CULTURE SCREEN 2022-02-12 01:12:00 Paula Rowe [facility] TROPONIN I 2022-02-12 01:12:00 Paula Rowe [facility] FREE T4 2022-02-12 01:12:00 Paula Rowe [facility] THYROID STIMULATING 2022-02-12 01:12:00 Paula Rowe [facility] HORMONE [facility] COMP. METABOLIC PANEL 2022-02-12 01:12:00 Paula Rowe [facility] ([id number]) Medical Branch ETHANOL 2022-02-12 01:12:00 Paula Rowe [facility] CBC WITH DIFF 2022-02-12 01:12:00 Paula Rowe [facility] PROTHROMBIN TIME / INR 2022-02-12 01:12:00 Paula Rowe [facility] ACTIVATED PARTIAL 2022-02-12 01:12:00 Paula Rowe [facility] THRMPLAS SHREYA [facility] N-TERMINAL PRO-BNP 2022-02-12 01:12:00 Paula Rowe [facility] EKG-12 LEAD 2022-02-12 01:06:16 Doctor Unassigned, [facility] POCT GLUCOSE (AUTOMATED) 2022-02-12 00:57:00 Paula Rowe [facility] ASSIGNMENT OF BENEFITS 2022-02-12 00:53:44 Doctor Unassigned, [facility] CONSENT/REFUSAL FOR 2022-02-12 00:53:30 Doctor Unassigned, [facility] DIAGNOSIS AND TREATMENT [place] [facility] [place] EMERGENCY DEPARTMENT 2022-02-11 05:01:00 Doctor Unassigned, [facility] DOCUMENTS [place] [facility] [place] POCT GLUCOSE (AUTOMATED) 2022-01-31 16:09:00 Jonas Hernandez [facility] POCT GLUCOSE (AUTOMATED) 2022-01-31 12:37:00 Jonas Hernandez [facility] PHOSPHORUS 2022-01-31 09:02:00 Luz Maria [facility] MAGNESIUM 2022-01-31 09:02:00 [facility] BASIC METABOLIC PANEL 2022-01-31 09:02:00 Luz Maria [facility] (NA, K, CL, CO2, GLUCOSE, Medica l Branch BUN, CREATININE, CA) ACUTE CARE VENOUS BLOOD 2022-01-31 09:02:00 Luz Maria [facility] N-TERMINAL PRO-BNP 2022-01-31 09:02:[address] [facility] POCT GLUCOSE (AUTOMATED) 2022-01-30 21:20:00 Jonas Hernandez [facility] POCT GLUCOSE (AUTOMATED) 2022-01-30 16:58:00 Jonas Hernandez [facility] POCT GLUCOSE (AUTOMATED) 2022-01-30 13:58:00 Jonas Hernandez [facility] POCT GLUCOSE (AUTOMATED) 2022-01-30 13:11:00 Jonas Hernandez [facility] COMP. METABOLIC PANEL 2022-01-30 09:22:00 Jonas Hernandez [facility] ([id number]) [facility] [place] CBC WITH DIFF 2022-01-30 09:22:00 Luz Maria [facility] N-TERMINAL PRO-BNP 2022-01-30 09:22:00 Jonas Hernandez [facility] ACUTE CARE VENOUS BLOOD 2022-01-30 09:21:00 Jonas Hernandez [facility] POCT GLUCOSE (AUTOMATED) 2022-01-30 03:01:00 Jonas Hernandez [facility] POCT GLUCOSE (AUTOMATED) 2022-01-29 21:03:00 Jonas Hernandez [facility] POCT GLUCOSE (AUTOMATED) 2022-01-29 16:05:00 Jonas Hernandez [facility] POCT GLUCOSE (AUTOMATED) 2022-01-29 15:13:00 Jonas Hernandez [facility] SPUTUM CULTURE 2022-01-29 13:06:00 Luz Maria [facility] POCT GLUCOSE (AUTOMATED) 2022-01-29 12:46:00 Jonas Hernandez [facility] PHOSPHORUS 2022-01-29 09:33:00 Luz Maria [facility] MAGNESIUM 2022-01-29 09:33:00 [facility] COMP. METABOLIC PANEL 2022-01-29 09:33:00 Jonas Hernandez [facility] ([id number]) [facility] CBC WITH DIFF 2022-01-29 09:33:00 Luz Maria [facility] N-TERMINAL PRO-BNP 2022-01-29 09:33:00 Jonas [facility] [facility] VENOUS BLOOD 2022-01-29 09:32:00 Jonas Hernandez [facility] POCT GLUCOSE (AUTOMATED) 2022-01-29 02:58:00 Jonas Hernandez [facility] POCT GLUCOSE (AUTOMATED) 2022-01-29 01:35:00 Jonas Hernandez [facility] POCT GLUCOSE (AUTOMATED) 2022-01-28 21:20:00 Jonas Hernandez [facility] XR CHEST 1 VW 2022-01-28 18:54:18 Luz Maria [facility] PROTEIN CREAT RATIO URINE 2022-01-28 16:54:00 Dilan Coffey [facility] URIC ACID 2022-01-28 16:49:00 Dilan Coffey [facility] TROPONIN I 2022-01-28 16:49:00 Mary agus [facility] TRANSTHORACIC ECHO (TTE) 2022-01-28 15:37:00 Jonas Hernandez [facility] COMPLETE W/ CONTRAST [facility] DUPLEX VENOUS LEGS 2022-01-28 14:42:[address] [facility] BILATERAL - BY VASCULAR [facility] LAB POCT GLUCOSE (AUTOMATED) 2022-01-28 13:57:00 Mary agus [facility] POCT GLUCOSE (AUTOMATED) 2022-01-28 12:58:00 Jonas Hernandez [facility] TROPONIN I 2022-01-28 11:46:[address] [facility] IRON PANEL 2022-01-28 11:46:00 Mary agus [facility] SEDIMENTATION RATE 2022-01-28 11:46:00 Mary agus [facility] N-TERMINAL PRO-BNP 2022-01-28 11:46:[address] [facility] PHOSPHORUS 2022-01-28 11:45:00 Mary [facility] CREATINE KINASE 2022-01-28 11:45:00 Mayr agus [facility] URIC ACID 2022-01-28 11:45:00 Mary agus [facility] MAGNESIUM 2022-01-28 11:45:00 Mary agus [facility] FERRITIN SERUM 2022-01-28 11:45:00 Mary agus [facility] VITAMIN B12, LEVEL 2022-01-28 11:45:00 Mary agus [facility] TROPONIN I 2022-01-28 11:45:00 Mary [facility] THYROID STIMULATING 2022-01-28 11:45:00 Mary agus [facility] HORMONE [facility] COMP. METABOLIC PANEL 2022-01-28 11:45:00 Jonas Hernandez [facility] ([id number]) [facility] [place] LIPID PANEL ([id number])(TOTAL 2022-01-28 11:45:00 Jonas Hernandez [facility] CHOLESTEROL, [facility] TRIGLYCERIDES, HDL) ACUTE CARE VENOUS BLOOD 2022-01-28 11:45:00 Mary agus [facility] GAS [facility] N-TERMINAL PRO-BNP 2022-01-28 11:45:00 Jonas Hernandez [facility] VITAMIN D, 25-OH 2022-01-28 11:45:00 Mary [facility] PROCALCITONIN 2022-01-28 11:45:00 Mary [facility] OSMOLALITY URINE 2022-01-28 08:55:00 Mary [facility] URINALYSIS 2022-01-28 08:55:00 Mary [facility] URINE CULTURE 2022-01-28 08:55:00 Mary [facility] UREA NITROGEN, URINE 2022-01-28 08:55:00 Mary agus [facility] SODIUM, URINE RANDOM 2022-01-28 08:55:00 Mary [facility] PROTEIN CREAT RATIO URINE 2022-01-28 08:55:00 Jonas Hernandez [facility] XR CHEST 1 VW 2022-01-28 02:23:00 Paula Rowe [facility] TROPONIN I 2022-01-28 02:09:00 Paula Rowe [facility] COMP. METABOLIC PANEL 2022-01-28 02:09:00 Paula Rowe [facility] ([id number]) [facility] CBC WITH DIFF 2022-01-28 02:09:00 Paula Rowe [facility] GLYCOSYLATED HEMOGLOBIN 2022-01-28 02:09:00 Mary agus [facility] (A1C) [facility] PROTHROMBIN TIME / INR 2022-01-28 02:09:00 Paula Rowe [facility] ACTIVATED PARTIAL 2022-01-28 02:09:00 Paula Rowe [facility] THRMPLAS SHREYA [facility] N-TERMINAL PRO-BNP 2022-01-28 02:09:00 Paula Rowe [facility] COVID-19 (ID NOW RAPID 2022-01-28 02:09:00 Paula Rowe [facility] TESTING) Medical Branch LAB ONLY COVID 2022-01-28 02:09:00 Paula Rowe [facility] INTERPRETATION [facility] HB ECG ROUTINE & RHYTHM 2022-01-28 01:47:33 Paula Rowe [facility] STRIP [facility] NOTICE OF PRIVACY 2022-01-28 01:38:34 Doctor Unassigned, [facility] PRACTICES [place] [facility] CONSENT/REFUSAL FOR 2022-01-28 01:37:59 Doctor Unassigned, [facility] DIAGNOSIS AND TREATMENT [place] [facility] COMP. METABOLIC PANEL 2022-01-12 23:24:00 Joslyn Ruelas [facility] ([id number]) [facility] CBC WITH DIFF 2022-01-12 23:24:00 Joslyn Ruelas [facility] XR CHEST 1 VW 2022-01-12 23:20:00 Joslyn Ruelas [facility] AC PANEL 21 + LACTIC ACID 2022-01-12 23:14:00 Joslyn Ruelas [facility] POCT GLUCOSE (AUTOMATED) 2022-01-12 17:48:00 MoulinCory [facility] POCT GLUCOSE (AUTOMATED) 2022-01-12 13:22:00 MoulinCory [facility] POCT GLUCOSE (AUTOMATED) 2022-01-12 05:51:00 MoulinCory [facility] POCT GLUCOSE (AUTOMATED) 2022-01-11 23:02:00 MoCory lucio [facility] POCT GLUCOSE (AUTOMATED) 2022-01-11 17:20:00 MoCory lucio [facility] POCT GLUCOSE (AUTOMATED) 2022-01-11 13:08:00 MoulinCory [facility] POCT GLUCOSE (AUTOMATED) 2022-01-11 11:35:00 Moulin, Cory [facility] MAGNESIUM 2022-01-11 10:46:00 Ahmerlyn [facility] BASIC METABOLIC PANEL 2022-01-11 10:46:00 Artie [facility] (NA, K, CL, CO2, GLUCOSE, Medica l Branch BUN, CREATININE, CA) CBC WITH DIFF 2022-01-11 10:46:00 Artie [facility] POCT GLUCOSE (AUTOMATED) 2022-01-11 04:13:00 Moulin, [facility] POCT GLUCOSE (AUTOMATED) 2022-01-10 22:36:00 Mou[place], [facility] POCT GLUCOSE (AUTOMATED) 2022-01-10 16:44:00 Mou[place], [facility] POCT GLUCOSE (AUTOMATED) 2022-01-10 13:02:00 Mou[place], [facility] POCT GLUCOSE (AUTOMATED) 2022-01-10 10:44:00 Mou[place], [facility] MAGNESIUM 2022-01-10 07:19:00 [facility] METABOLIC PANEL 2022-01-10 07:19:00 Cam [facility] (NA, K, CL, CO2, GLUCOSE, Medica l Branch BUN, CREATININE, CA) CBC WITH DIFF 2022-01-10 07:19:00 Tung[facility] POCT GLUCOSE (AUTOMATED) 2022-01-10 04:48:00 Moulin, [facility] POCT GLUCOSE (AUTOMATED) 2022-01-09 17:23:00 Mou[place], [facility] POCT GLUCOSE (AUTOMATED) 2022-01-09 12:46:00 Moulin, [facility] BASIC METABOLIC PANEL 2022-01-09 10:50:00 Artie [facility] (NA, K, CL, CO2, GLUCOSE, Medica l Branch BUN, CREATININE, CA) CBC WITH DIFF 2022-01-09 10:50:00 Artie [facility] POCT GLUCOSE (AUTOMATED) 2022-01-09 10:42:00 Moulin, Cory [facility] POCT GLUCOSE (AUTOMATED) 2022-01-09 04:21:00 Moulin, Cory [facility] POCT GLUCOSE (AUTOMATED) 2022-01-08 23:17:00 Moulin, Cory [facility] POCT GLUCOSE (AUTOMATED) 2022-01-08 18:14:00 Moulin, Cory [facility] POCT GLUCOSE (AUTOMATED) 2022-01-08 13:34:00 Moulin, Cory [facility] POCT GLUCOSE (AUTOMATED) 2022-01-08 10:57:00 Moulin, Cory [facility] BASIC METABOLIC PANEL 2022-01-08 10:48:00 Artie [facility] (NA, K, CL, CO2, GLUCOSE, Medica l Branch BUN, CREATININE, CA) CBC WITH DIFF 2022-01-08 10:48:00 Dawood Alva [facility] POCT GLUCOSE (AUTOMATED) 2022-01-08 05:43:00 [place], [facility] POCT GLUCOSE (AUTOMATED) 2022-01-07 21:25:00 Moulin, [facility] POCT GLUCOSE (AUTOMATED) 2022-01-07 16:34:00 Moulin, [facility] ABG+COOX+NA+K+GLU+CA2+ 2022-01-07 15:40:00 u Shahla Fisher [facility] POCT GLUCOSE (AUTOMATED) 2022-01-07 13:07:00 Moulin, Cory [facility] BASIC METABOLIC PANEL 2022-01-07 07:14:00 Artie [facility] (NA, K, CL, CO2, GLUCOSE, Medica l Branch BUN, CREATININE, CA) CBC WITH DIFF 2022-01-07 07:14:00 Artie [facility] POCT GLUCOSE (AUTOMATED) 2022-01-07 05:53:00 Moulin, [facility] POCT GLUCOSE (AUTOMATED) 2022-01-06 23:35:00 Moulin, Cory [facility] POCT GLUCOSE (AUTOMATED) 2022-01-06 22:16:00 Moulin, Cory [facility] XR CHEST 1 VW 2022-01-06 21:37:00 Abu Atherabbi, [facility] POCT GLUCOSE (AUTOMATED) 2022-01-06 17:02:00 Moulin, Cory [facility] POCT GLUCOSE (AUTOMATED) 2022-01-06 13:41:00 Moulin, Cory [facility] PHOSPHORUS 2022-01-06 09:21:00 Ahmed [facility] MAGNESIUM 2022-01-06 09:21:00 Ahmed, [facility] BASIC METABOLIC PANEL 2022-01-06 09:21:00 [facility] (NA, K, CL, CO2, GLUCOSE, Medica l Branch BUN, CREATININE, CA) CBC WITH DIFF 2022-01-06 09:21:00 Ahmed [facility] POCT GLUCOSE (AUTOMATED) 2022-01-05 20:44:00 Moulin, Cory [facility] XR ABDOMEN 1 VW 2022-01-05 17:55:00 Abu Atherah, [facility] POCT GLUCOSE (AUTOMATED) 2022-01-05 16:54:00 [place], [facility] POCT GLUCOSE (AUTOMATED) 2022-01-05 13:09:00 MoulinCory [facility] PHOSPHORUS 2022-01-05 09:06:00 MoulinCory [facility] MAGNESIUM 2022-01-05 09:06:00 [place], [facility] BASIC METABOLIC PANEL 2022-01-05 09:06:00 Jaye [facility] (NA, K, CL, CO2, GLUCOSE, Medica l Branch BUN, CREATININE, CA) CBC WITH DIFF 2022-01-05 09:06:00 [place], [facility] POCT GLUCOSE (AUTOMATED) 2022-01-05 05:07:00 Moulin, Cory [facility] POCT GLUCOSE (AUTOMATED) 2022-01-04 22:10:00 Moulin, Cory [facility] POCT GLUCOSE (AUTOMATED) 2022-01-04 17:14:00 Moulin, Cory [facility] POCT GLUCOSE (AUTOMATED) 2022-01-04 11:15:00 Moulin, Cory [facility] PHOSPHORUS 2022-01-04 10:42:00 Jenifer [facility] MAGNESIUM 2022-01-04 10:42:00 Jenifer, [facility] BASIC METABOLIC PANEL 2022-01-04 10:42:00 Jenifer [facility] (NA, K, CL, CO2, GLUCOSE, Medica l Branch BUN, CREATININE, CA) VANCOMYCIN TROUGH 2022-01-04 10:42:00 Jaye [facility] CBC WITH DIFF 2022-01-04 10:42:[address] [facility] CT ABDOMEN PELVIS W 2022-01-04 09:03:00 Shahla [facility] POCT GLUCOSE (AUTOMATED) 2022-01-04 06:25:00 MoulinCory [facility] POCT GLUCOSE (AUTOMATED) 2022-01-03 21:21:00 Mou[place], Cory [facility] XR CHEST 1 VW 2022-01-03 20:48:16 Shahla Andrade [facility] POCT GLUCOSE (AUTOMATED) 2022-01-03 16:50:00 Mou[place], Cory [facility] POCT GLUCOSE (AUTOMATED) 2022-01-03 12:59:00 Mou[place], Cory [facility] POCT GLUCOSE (AUTOMATED) 2022-01-03 10:17:00 MoulinCory [facility] AC PANEL 20 + LACTIC ACID 2022-01-03 10:15:00 [facility] 2022-01-03 08:54:00 MoulinCory [facility] BASIC METABOLIC PANEL 2022-01-03 08:54:00 MoCory lucio [facility] (NA, K, CL, CO2, GLUCOSE, Medica l Branch BUN, CREATININE, CA) CBC WITH DIFF 2022-01-03 08:54:00 Cory Cee [facility] POCT GLUCOSE (AUTOMATED) 2022-01-03 04:48:00 Cory Cee [facility] POCT GLUCOSE (AUTOMATED) 2022-01-02 22:15:00 Cory Cee [facility] SPUTUM CULTURE 2022-01-02 19:39:00 Abu Seda [facility] XR KUB 2022-01-02 18:17:54 Abu Seda, [facility] XR KUB 2022-01-02 17:07:05 Abu Seda, [facility] POCT GLUCOSE (AUTOMATED) 2022-01-02 16:26:00 Cory Cee [facility] CT HEAD WO CONTRAST 2022-01-02 15:49:23 [facility] XR CHEST 1 VW 2022-01-02 13:45:16 Abu Seda [facility] AC PANEL 20 + LACTIC ACID 2022-01-02 12:37:00 Abjackie Fisher [facility] POCT GLUCOSE (AUTOMATED) 2022-01-02 12:26:00 Cory Cee [facility] BASIC METABOLIC PANEL 2022-01-02 10:42:00 Cory Cee [facility] (NA, K, CL, CO2, GLUCOSE, Medica l Branch BUN, CREATININE, CA) BLOOD CULTURE SCREEN 2022-01-02 10:41:00 Cory Cee [facility] CBC WITH DIFF 2022-01-02 10:41:00 Cory Cee [facility] GLYCOSYLATED HEMOGLOBIN 2022-01-02 10:41:00 [facility] (A1C) [facility] BLOOD CULTURE SCREEN 2022-01-02 10:40:00 Cory Cee [facility] RESPIRATORY CULTURE 2022-01-02 10:40:[address] [facility] URINE CULTURE 2022-01-02 10:39:00 Cory Cee [facility] MRSA / MSSA SCREEN BY 2022-01-02 10:39:00 Cory Cee [facility] PCR, [facility] ABG+COOX+NA+K+GLU+CA2+ 2022-01-02 10:17:00 Cory Cee [facility] AC PANEL 21 + LACTIC ACID 2022-01-02 03:53:00 Janis Valencia [facility] XR CHEST 1 VW 2022-01-02 02:59:00 [facility] 2022-01-02 02:58:00 [facility] LACTIC ACID WHOLE BLOOD 2022-01-02 02:26:00 Janis Valencia [facility] AC PANEL 21 + LACTIC ACID 2022-01-02 02:26:00 Janis Valencia [facility] BLOOD CULTURE SCREEN 2022-01-02 02:25:00 Janis Valencia [facility] TROPONIN I 2022-01-02 02:25:00 [facility] COMP. METABOLIC PANEL 2022-01-02 02:25:00 Janis Valencia [facility] ([id number]) [facility] CBC WITH DIFF 2022-01-02 02:25:00 Janis Valencia [facility] N-TERMINAL PRO-BNP 2022-01-02 02:25:00 Janis Valencia [facility] HB ECG ROUTINE & RHYTHM 2022-01-02 02:14:14 Janis Valencia [facility] HOSPITAL ADMISSION 2022-01-01 05:01:00 Doctor Unassigned, [facility] [place] [facility] XR CHEST 1 VW 2021-12-09 04:15:[address] [facility] LIPASE 2021-12-09 03:52:[address] [facility] TROPONIN I 2021-12-09 03:52:[address] [facility] COMP. METABOLIC PANEL 2021-12-09 03:52:00 Duke Velazquez [facility] ([id number]) [facility] CBC WITH DIFF 2021-12-09 03:52:[address] [facility] N-TERMINAL PRO-BNP 2021-12-09 03:52:00 Duke Velazquez [facility] CONSENT/REFUSAL FOR 2021-12-09 03:24:16 Doctor Unassigned, [facility] DIAGNOSIS AND TREATMENT [place] [facility] POCT GLUCOSE (AUTOMATED) 2021-09-23 17:13:00 Paula Rowe [facility] POCT GLUCOSE (AUTOMATED) 2021-09-23 13:53:00 Paula Rowe [facility] BASIC METABOLIC PANEL 2021-09-23 10:22:00 Laurie Wilkins [facility] (NA, K, CL, CO2, GLUCOSE, Medica l Branch BUN, CREATININE, CA) CBC WITHOUT DIFF 2021-09-23 10:22:00 Laurie Wilkins [facility] POCT GLUCOSE (AUTOMATED) 2021-09-23 10:12:00 Paula Rowe [facility] POCT GLUCOSE (AUTOMATED) 2021-09-23 05:38:00 Paula Rowe [facility] POCT GLUCOSE (AUTOMATED) 2021-09-23 02:14:00 Paula Rowe [facility] POCT GLUCOSE (AUTOMATED) 2021-09-22 22:20:00 Paula Rowe [facility] POCT GLUCOSE (AUTOMATED) 2021-09-22 19:52:00 Paula Rowe [facility] TRANSTHORACIC ECHO (TTE) 2021-09-22 18:44:47 Cabrera Armstrong [facility] COMPLETE W/ CONTRAST [facility] POCT GLUCOSE (AUTOMATED) 2021-09-22 18:07:00 Paula Rowe [facility] EKG-12 LEAD 2021-09-22 13:45:05 Paula Rowe [facility] POCT GLUCOSE (AUTOMATED) 2021-09-22 13:20:00 Paula Rowe [facility] PNEUMOCOCCAL ANTIGEN 2021-09-22 12:39:00 [facility] / MSSA SCREEN BY 2021-09-22 12:34:00 Nathaniel [facility] PCR, [facility] RESPIRATORY PANEL BY PCR 2021-09-22 12:34:00 Nikos Pugh [facility] GALV ONLY - INFLUENZA A B 2021-09-22 12:33:00 Cabrera Armstrong [facility] RSV PCR [facility] COVID-19 (MOLECULAR 2021-09-22 12:33:00 Cecilia Jones [facility] TESTING [facility] NUCLEIC ACID AMPLIFICATION) SPUTUM CULTURE 2021-09-22 12:30:00 Nathaniel [facility] AC PANEL 20 + LACTIC ACID 2021-09-22 12:16:00 Cabrera Armstrong [facility] PHOSPHORUS 2021-09-22 12:15:00 Nathaniel [facility] MAGNESIUM 2021-09-22 12:15:00 Nathaniel [facility] HEPATIC FUNCTION PANEL 2021-09-22 12:15:00 Nathaniel [facility] () (ALB,T.PRO,BILI [facility] [place] T,BU/BC,ALT,AST,ALK PHOS) BASIC METABOLIC PANEL 2021-09-22 12:15:00 [facility] (NA, K, CL, CO2, GLUCOSE, Medica l Branch BUN, CREATININE, CA) CBC WITH DIFF 2021-09-22 12:15:00 Nathaniel [facility] PROTHROMBIN TIME / INR 2021-09-22 12:15:00 Nathaniel [facility] BLOOD CULTURE SCREEN 2021-09-22 12:13:00 Nathaniel [facility] AC PANEL 20 + LACTIC ACID 2021-09-22 06:41:00 Paula Rowe [facility] TROPONIN I 2021-09-22 06:36:00 Paula Rowe [facility] COMP. METABOLIC PANEL 2021-09-22 06:36:00 Paula Rowe [facility] ([id number]) Medical Branch CBC WITH DIFF 2021-09-22 06:36:00 Paula Rowe [facility] GLYCOSYLATED HEMOGLOBIN 2021-09-22 06:36:00 Nathaniel [facility] (A1C) [facility] PROTHROMBIN TIME / INR 2021-09-22 06:36:00 Paula Rowe [facility] ACTIVATED PARTIAL 2021-09-22 06:36:00 Paula Rowe [facility] THRMPLAS SHREYA [facility] N-TERMINAL PRO-BNP 2021-09-22 06:36:00 Paula Rowe [facility] COVID-19 (ID NOW RAPID 2021-09-22 06:36:00 Paula Rowe [facility] TESTING) Medical Branch LAB ONLY COVID 2021-09-22 06:36:00 Paula Rowe [facility] INTERPRETATION [facility] XR CHEST 1 VW 2021-09-22 06:26:48 Paula Rowe [facility] HB ECG ROUTINE & RHYTHM 2021-09-22 06:17:39 Paula Rowe [facility] STRIP [facility] HOSPITAL ADMISSION 2021-09-22 06:01:00 Doctor Morris [facility] CONSENT/REFUSAL FOR 2021-09-22 06:00:03 Doctor Arturo [facility] DIAGNOSIS AND TREATMENT [facility] DME/SUPPLY JUSTIFICATION 2021-08-01 06:01:00 Doctor Morris [facility] Medical [place] Plan of Care Planned Activity Planned Date [facility] Future Scheduled 2011 SHINGLES VACCINES ([address] [facility] 00:00:00 2) [facility] (1 [facility] 2)] Future Scheduled 2006 Lipid panel (procedure) [facility] 00:00:00 [code = 52076141] Medical Ce nter Future Scheduled 2006 Lipid panel (procedure) [facility] Test 00:00:00 [code = 01902602] Medical Ce nter Future Scheduled 1982 Screening for malignant [facility] Test 00:00:00 neoplasm of cervix Medical C enter (procedure) [code = 801060131] Future Scheduled 1982 Screening for malignant [facility] Test 00:00:00 neoplasm of cervix Medical C enter (procedure) [code = 423332271] Future Scheduled 1979 HEPATITIS C SCREENING CH [...] breast Medical C enter (procedure) [code = 991072307] Future Scheduled 1961 CT Colonography (combo) [facility] Test 00:00:00 [code = CT Colonography [facility] (combo)] Future Scheduled 1961 Screening for malignant [facility] Test 00:00:00 neoplasm of colon Medical Ce nter (procedure) [code = 119548302] Future Scheduled 1961 Screening for malignant [facility] Test 00:00:00 neoplasm of colon Medical Ce nter (procedure) [code = 023554789] Future Scheduled 1961 Screening for malignant [facility] Test 00:00:00 neoplasm of colon Medical Ce nter (procedure) [code = 320385198] Future Scheduled 1961 Screening for malignant [facility] Test 00:00:00 neoplasm of colon Medical Ce nter (procedure) [code = 385956540] Future Scheduled 1961 Sigmoidoscopy [code = [facility]oscopy] Medical Cente r Future Scheduled 1961 Screening for malignant [facility] Test 00:00:00 neoplasm of breast Medical C enter (procedure) [code = 446615160] Future Scheduled 1961 CT Colonography (combo) [facility] Test 00:00:00 [code = CT Colonography [facility] (combo)] Future Scheduled 1961 Screening for malignant [facility] Test 00:00:00 neoplasm of colon Medical Ce nter (procedure) [code = 184910671] Future Scheduled 1961 Screening for malignant [facility] Test 00:00:00 neoplasm of colon Medical Ce nter (procedure) [code = 433718368] Future Scheduled 1961 Screening for malignant [facility] Test 00:00:00 neoplasm of colon Medical Ce nter (procedure) [code = 258648017] Future Scheduled 1961 Screening for malignant [facility] Test 00:00:00 neoplasm of colon Medical Ce nter (procedure) [code = 800255025] Future Scheduled 1961 Sigmoidoscopy [code [facility]oscopy] Medical Cente r Encounters Start End Encounter Admission Attending Care Care Encounter Source Date/Time Date/Time Type Type Clinicians Facility Department ID 2022-12-11 Inpatient R LV LIZ [facility] [id number] Univers 00:00:00 LV LIZ it y of [facility] 2022-08-05 Emergency [facility] [id number] Univers 00:34:25 ity of [facility] 2022-12-11 2022-12-11 Transition [place] Arrieta [id number] Univers 00:00:00 00:00:00 of Care Alessandra JEFFREY [id number] i ty of DA [id number] Katherine tobias [id number] [address] 2022-12-07 2022-12-10 Inpatient U LV LIZ [facility] [id number] Univers 11:55:00 15:30:00 LV LIZ i ty of [facility] 2022-12-07 2022-12-10 Hospital ALEXSANDRA Liz [id number] Univers 11:55:00 15:30:00 Encounter Lv MEJIA [id number] ity of [facility] [id number] Compa as [id number] [place] [facility] [address] 2022-11-25 2022-11-26 Hospital ER Tracy Johnson Sanjay [facility] [id number] [facility] 02:46[facility]00 14:00:00 Encounter Charlie [facility] 2022-11-25 2022-11-26 Inpatient ER GIANLUCA LIRA Internal [id number] SLE 02:46:00 14:00:00 [facility] 2022-11-25 2022-11-25 Travel [facility] [id number] [facility] 00[facility]:00 [facility] 2022-09-09 2022-09-09 Emergency [facility] [id number] Univers 06:30:00 08:46:00 JOSLYN [facility] 2022-09-09 2022-09-09 Emergency [facility] 1.2.840.114 [id number] Univers 06:30:00 08:46:00 Joslyn BOYD 350.1.13.10 ity [facility] [place] [id number] [facility] [address] 2022-08-12 2022-08-12 Transition [place] Ar[place] 1.2.840.114 [id number] Univers 00:00:00 00:00:00 of Care Alessandra JEFFREY 350.1.13.10 i ty of [place] [id number] [facility] [address] 2022-08-05 2022-08-10 Inpatient U CARLOS [facility] [id number] Univers 00:39:00 17:00:00 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 [facility] 2022-08-05 2022-08-10 [facility] Jonas Hernandez [facility] 1.2.840.11 [id number] Univers 00:39:00 17:00:00 Encounter Corey Gonzalez 350.1.13.10 ity of [place] 4.2.7.2.686 [facility] [id number] [address] 2022-06-04 2022-06-04 Emergency Liang [facility] ERT [id number] Univers 20:54:00 23:53:00 GEN shipman [facility] 2022-06-04 2022-06-04 Emergency [facility] 1.2.017.867 [id number] Univers 20:54:00 23:53:00 Gen BOYD 350.1.13.10 i ty of [place] 4.2.7.2.686 [facility] [id number] [address] 2022-05-12 2022-05-13 Emergency Liang [facility] ERT [id number] Univers 22:51:00 03:10:00 PAULA sholacynthia [facility] 2022-05-12 2022-05-13 Emergency [facility] 1.2.426.532 [id number] Univers 22:51:00 03:10:00 Paula BOYD 350.1.13.10 i ty of [place] 4.2.7.2.686 [facility] [id number] [address] 2022-05-02 2022-05-02 Emergency X Sanjay HENRY [facility] ERT [id number] Univers 00:17:00 02:29:00 itcynthia [facility] 2022-05-02 2022-05-02 Emergency Sanjay Henry [facility] 1.2.840.114 [id number] Univers 00:17:00 02:29:00 Janel DE LUNAKLEBER 350.1.13.10 i ty of [place] 4.2.7.2.686 [facility] [id number] [address] 2022-04-28 2022-04-29 Emergency Liang [facility] ERT [id number] Univers 21:41:00 00:50:00 PAULA shipman [facility] 2022-04-28 2022-04-29 Emergency [facility] 1.2.940.415 [id number] Univers 21:41:00 00:50:00 Paula BOYD 350.1.13.10 i ty of [place] 4.2.7.2.686 [facility] [id number] [facility] [address] 2022-03-02 2022-03-02 Transition [place] 1.2.840.114 [id number] Univers 00:00:00 00:00:00 of Care Alessandra JEFFREY 350.1.13.10 i ty of [place]2.[place] [id number] [facility] [address] 2022-02-20 2022-02-27 Inpatient X RASMALINI [facility] MPU [id number] Univers 14:58:00 17:54:00 [facility] ity o [facility] 2022-02-20 2022-02-27 [facility] Paula Rowe 1.2.840.1 14 [id number] Univers 14:58:00 17:54:00 Encounter Kevin Lebron 350.1.13.10 [facility] 4.2.7.2. 686 [place] [id number] [place] 017966 Branch 2022-02-18 2022-02-18 [facility] [place] 1.2.840.114 [id number] Univers 00:00:00 00:00:00 of Care Alessandra JEFFREY 350.1.13.10 [place] [id number] [facility] [address] 2022-02-11 2022-02-17 Inpatient X SCARLETT [facility] ROBLES [id number] Univers 19:55:00 18:10:00 VALERIANO ity of [facility] 2022-02-11 2022-02-17 [facility] Paula Rowe [facility] 1.2.840.1 14 [id number] Univers 19:55:00 18:10:00 Encounter Valeriano Pantoja [facility] 350.1.13.1 0 ity of [facility] 4.2.7.2.[place] [facility] [id number] [address] ([facility]) 2022-02-02 2022-02-02 [place] 1.2.840.114 [id number] Univers 00:00:00 00:00:00 of Care Alessandra JEFFREY 350.1.13.10 [place] [id number] [facility] [address] 2022-01-27 2022-01-31 Inpatient X MARY, [facility] ROBLES [id number] Univers 20:40:00 13:51:00 ADNAN ity [facility] 2022-01-27 2022-01-31 [facility] Rowe Paula [facility] 1.2.840.1 14 [id number] Univers 20:40:00 13:51:00 Encounter Jonas Hernandez 350.1.13.10 ity of [place] 4.2.7.2.686 [facility] [id number] [facility] [address] 2022-01-28 2022-01-28 Telephone Saloni [facility] 1.2.840.114 [id number] Univers 00:00:00 00:00:00 [facility] 350.1.13.10 it y of [place] 4.2.7.2.686 [facility] - [id number] Med ical [facility] [address] 2022-01-13 2022-01-13 [place] 1.2.840.114 [id number] Univers 00:00:00 00:00:00 of Care Alessandra JEFFREY 350.1.13.10 i ty [place] [id number] [facility] [address] 2022-01-12 2022-01-12 Emergency X [facility] ERT [id number] Univers 17:23:00 22:19:00 JOSLYN shipman [facility] 2022-01-12 2022-01-12 Emergency [facility] 1.2.840.114 [id number] Univers 17:23:00 22:19:00 Joslyn BOYD 350.1.13.10 ity of [place] 4.2.7.2.686 [facility] [id number] [facility] [address] 2022-01-01 2022-01-12 Inpatient X [facility] [id number] Univers 21:18:00 14:06:00 SEDA sholamagdy PAULA [facility] 2022-01-01 2022-01-12 Hospital Janis Valencia [facility] 1 .2.840.114 [id number] Univers 21:18:00 14:06:00 Encounter Cory Cee 350.1.13.10 ity of [facility] Shahla Fisher [place] 4.2.7.2.686 [facility] [id number] [facility] [address] ([facility]) 2021-12-08 2021-12-09 Emergency X [facility] ERT [id number] Univers 22:28:00 00:58:00 DUKE ity [facility] 2021-12-08 2021-12-09 Emergency [facility] 1.2.840.114 [id number] Univers 22:28:00 00:58:00 Duke BOYD 350.1.13.10 ity of [place] 4.2.7.2.[place] [id number] [place] 017964 Branch 2021-09-24 2021-09-24 Transition [place] Brewer 1.2.840.114 [id number] Univers 00:00:00 00:00:00 of Care Patria EMY 350.1.13.10 ity of [place] 4.2.7.2.686 [place] [id number] [facility] [address] 2021-09-22 2021-09-23 Inpatient U ENE GIVENS [facility] MPU [id number] Univers 00:05:00 15:03:00 ENE GIVENS i ty of [facility] 2021-09-22 2021-09-23 Hospital Paula Rowe 1.2.840.1 14 [id number] Univers 00:05:00 15:03:00 Encounter Ene Givens 350.1.13.10 ity of [facility] 4.2.7.2.686 [place] [id number] [facility] [address] 2021-08-01 2021-08-01 Orders Doctor KATELYN 1.2.840.114 [id number] Univers 00:00:00 00:00:00 Only Unassigned, JACKIE 350.1.13.10 ity of [place] [facility] 4.2.7.2.686 [facility] [id number] [facility] [address] 2021-07-23 2021-07-23 Office [facility] 1.2.840.114 [id number] Univers 14:15:00 14:30:00 Visit [facility] 350.1.13.10 it y of [place] 4.2.7.2.686 [facility] [id number] [facility] 144 [address] 2021-07-23 2021-07-23 [facility] [id number] Univers 14:15:00 14:15:00 [facility] 2021-07-23 2021-07-23 Outpatient [facility] [id number] Univers 14:15:00 14:15:00 LAYNE [facility] 2021-07-23 2021-07-23 [facility] 1.2.840.114 [id number] Univers 00:00:00 00:00:00 Layne MENDOZA 350.1.13.10 i ty of [facility] [place].2.[place] [id number] [facility] [address] 2021-06-25 2021-06-26 Emergency [facility] ERT [id number] Univers 21:58:00 03:17:00 APARNA [facility] 2021-06-25 2021-06-26 [facility] 1.2.997.441 [id number] Univers 21:58:00 03:17:00 Aparna BOYD 350.1.13.10 ity of [place] 4.2.7.2.686 [facility] [id number] [facility] [address] 2021-02-19 2021-02-19 Outpatient R ANGEL [facility] [id number] Univers 00:00:00 00:00:00 [facility] 2020-02-01 2020-02-01 Outpatient Andrea ANGEL, [facility] [id number] Univers 00:00:00 00:00:00 CAMILA [facility] 2019-09-01 2019-09-01 Outpatient Andrea LUNA, [facility] [id number] Univers 14:41:55 23:59:00 GAB [facility] 2019-08-04 2019-08-04 Outpatient Andrea CALDERON, [facility] [id number] Univers 17:13:44 23:59:00 JUNE [facility] Results Test Description Test Time Test Comments Results Result Comments Source POCT GLUCOSE (AUTOMATED) 2022-12-10 16:56:22 Test Item Value Reference Range Interpretation Comme nts POCT GLU (test code = 5714823004) 97 mg/dL 70-110 Lab Interpretation (test code = 01082-9) Normal [facility]2022-12-10 12:47:14 Test Item Value Reference Range Interpretation Comments POCT GLU (test code = 5450773623) 109 mg/dL 70-110 Lab Interpretation (test code = Normal 12720-7) [facility] (NA, K, CL, CO2, GLUCOSE, BUN, CREATININE, CA)2022-12-10 10:21:18 Test Item Value Reference Range Interpretation Comments NA (test code = 136 mmol/L 135-145 1717738884) K (test code = 3.4 mmol/L 3.5-5.0 L 2718571601) CL (test code = 96 mmol/L 98-108 L 5402327437) CO2 TOTAL (test code = 32 mmol/L 23-31 H 3557273441) AGAP (test code = 8 2-16 8208452853) BUN (test code = 24 mg/dL 7-23 H 3200661909) GLUCOSE (test code = 93 mg/dL 70-110 2886348648) CREATININE (test code = 0.99 mg/dL 0.50-1.04 4969445376) CALCIUM (test code = 8.7 mg/dL 8.6-10.6 4170984846) eGFR (test code = 57.0 mL/min/1.73m2 4496489512) JENNIFFER (test code = JENNIFFER) Association of [...] tests). Lab Interpretation Abnormal (test code = 51140-5) [facility]2023-[facility]-18 10:21:18 Test Item Value Reference Range Interpretation Comments MAGNESIUM (test code = 1350481353) 2.1 mg/dL 1.7-2.4 Lab Interpretation (test code = Normal 26154-9) [facility] WITHOUT [id number] 09:50:09 Test Item Value Reference Range Interpretation Comments WBC (test code = 6690-2) 10.47 See_Comment [A utomated message] The system [employer] generated this result transmit alden reference range : 4.30 - 11.10 10*3/?L. The reference range was not used to interpret this result as normal/abnormal . RBC (test code = 789-8) 3.09 See_Comment L [Au tomated message] The system [employer] generated this result transmit alden reference range : 3.93 - 5.25 10* 6/?L. The reference r josselyn was not used to interpret this result as normal/abnormal . HGB (test code = 718-7) 8.9 g/dL 11.6-15.0 L HCT (test code = 4544-3) 27.0 % 35.7-45.2 L MCH (test code = 785-6) 28.8 pg 25.9-32.8 MCV (test code = 787-2) 87.4 fL 80.6-95.5 MCHC (test code = 786-4) 33.0 g/dL 31.6-35.1 PLT (test code = 777-3) 175 See_Comment [Au tomated message] The system [facility] generated this result transmit alden reference range : 166 - 358 10*3/?L. The reference range was not used to interpret this result as normal/abnormal . MPV (test code = 9.2 fL 9.5-12.9 L 82626-4) RDW-CV (test code = 14.6 % 12.0-15.5 788-0) RDW-SD (test code = 46.1 fL 39.0-49.9 22453-2) NRBC x10^3 (test code = See_Comment [Au tomated message] 8100422622) The system [facility] generated this result transmit alden reference range : 10*3/?L. The reference range was not used to interpret this result as normal/abnormal . NRBC/100 WBC (test code 0.0 See_Comment [Au tomated message] = 9153317138) The system [facility] generated this result transmit alden reference range : 0.0 - 10.0 /100 WBC s. The reference r josselyn was not used to interpret this result as normal/abnormal . IPF % (test code = 1594406802) Lab Interpretation (test Abnormal code = 36665-3) [facility] GLUCOSE (AUTOMATED)2022-12-10 09:40:29 Test Item Value Reference Range Interpretation Comments POCT GLU (test code = 9349062781) 103 mg/dL 70-110 Lab Interpretation (test code = Normal 39625-4) [facility] GLUCOSE (AUTOMATED)2022-12-10 05:27:42 Test Item Value Reference Range Interpretation Comments POCT GLU (test code = 2001317766) 87 mg/dL 70-110 Lab Interpretation (test code = Normal 50490-3) [facility] GLUCOSE (AUTOMATED)2022-12-10 01:22:34 Test Item Value Reference Range Interpretation Comments POCT GLU (test code = 2439958645) 91 mg/dL 70-110 Lab Interpretation (test code = Normal 16825-2) [facility] GLUCOSE (AUTOMATED)2022-12-09 21:07:38 Test Item Value Reference Range Interpretation Comments POCT GLU (test code = 7648484200) 105 mg/dL 70-110 Lab Interpretation (test code = Normal 32156-9) [facility] GLUCOSE (AUTOMATED)2022-12-09 17:09:56 Test Item Value Reference Range Interpretation Comments POCT GLU (test code = 9154288796) 132 mg/dL 70-110 H Lab Interpretation (test code = Abnormal 25871-8) [facility] GLUCOSE (AUTOMATED)2022-12-09 12:58:42 Test Item Value Reference Range Interpretation Comments POCT GLU (test code = 5908686378) 173 mg/dL 70-110 H Lab Interpretation (test code = Abnormal 73378-9) [facility] METABOLIC PANEL (NA, K, CL, CO2, GLUCOSE, BUN, CREATININE, CA)2022-12-09 09:53:39 Test Item Value Reference Range Interpretation Comments NA (test code = 135 mmol/L 135-145 3253651997) K (test code = 3.1 mmol/L 3.5-5.0 L 8987361692) CL (test code = 94 mmol/L 98-108 L 1383892020) CO2 TOTAL (test code = 33 mmol/L 23-31 H 0474502069) AGAP (test code = 8 2-16 7820222440) BUN (test code = 26 mg/dL 7-23 H 9250590244) GLUCOSE (test code = 127 mg/dL 70-110 H 3661767061) CREATININE (test code = 0.96 mg/dL 0.50-1.04 4197072004) CALCIUM (test code = 8.8 mg/dL 8.6-10.6 0665281710) eGFR (test code = 59.1 mL/min/1.73m2 1347709101) JENNIFFER (test code = JENNIFFER) Association of [...] tests). Lab Interpretation Abnormal (test code = 01181-3) [facility] WITHOUT [id number] 09:29:57 Test Item Value Reference Range Interpretation Comments WBC (test code = 6690-2) 8.67 See_Comment [A utomated message] The system [employer] generated this result transmit alden reference range : 4.30 - 11.10 10*3/?L. The reference range was not used to interpret this result as normal/abnormal . RBC (test code = 789-8) 2.99 See_Comment L [Au tomated message] The system [employer] generated this result transmit alden reference range : 3.93 - 5.25 10* 6/?L. The reference r josselyn was not used to interpret this result as normal/abnormal . HGB (test code = 718-7) 8.5 g/dL 11.6-15.0 L HCT (test code = 4544-3) 26.1 % 35.7-45.2 L MCH (test code = 785-6) 28.4 pg 25.9-32.8 MCV (test code = 787-2) 87.3 fL 80.6-95.5 MCHC (test code = 786-4) 32.6 g/dL 31.6-35.1 PLT (test code = 777-3) 182 See_Comment [Au tomated message] The system [employer] generated this result transmit alden reference range : 166 - 358 10*3/?L. The reference range was not used to interpret this result as normal/abnormal . MPV (test code = 9.4 fL 9.5-12.9 L 50351-5) RDW-CV (test code = 14.6 % 12.0-15.5 788-0) RDW-SD (test code = 46.5 fL 39.0-49.9 08875-5) NRBC x10^3 (test code = See_Comment [Au tomated message] 6273924931) The system [employer] generated this result transmit alden reference range : 10*3/?L. The reference range was not used to interpret this result as normal/abnormal . NRBC/100 WBC (test code 0.0 See_Comment [Au tomated message] = 9062247001) The system [employer] generated this result transmit alden reference range : 0.0 - 10.0 /100 WBC s. The reference r josselyn was not used to interpret this result as normal/abnormal . IPF % (test code = 7077677962) Lab Interpretation (test Abnormal code = 18195-4) [facility] 20 + Lactic [id number] 09:09:40 Test Item Value Reference Range Interpretation Comments PH (test code = 2) 7.53 7.35-7.45 H PCO2 (test code = 40 See_Comment [Automate d 4648575406) message] The sy stem which generated this result transmitted reference range : 35 - 45 mmHg. The reference range was not used to interpret this result as normal/abnormal . PO2 (test code = 83 See_Comment [Automated 3564291742) message] The sy stem which generated this result transmitted reference range : 80 - 100 mmHg. The reference range was not used to interpret this result as normal/abnormal . HCO3 (test code = 33 See_Comment H [Automate d 9778165077) message] The sy stem which generated this result transmitted reference range : 22 - 26 mEq/L. The reference range was not used to interpret this result as normal/abnormal . BE (test code = 8.6 See_Comment H [Automated 8810900270) message] The sy stem which generated this result transmitted reference range : -3.0 - 3.0 mEq/ L. The reference r josselyn was not used to interpret this result as normal/abnormal . THB (test code = 12.3 g/dL 12.0-16.0 6936759816) %O2HB (test code = 97.1 % 94.0-99.0 0624540413) %COHB ART (test code = 0.5 % 0.0-1.5 5065810551) %METHB ART (test code = 0.0 % 0.4-1.5 L 8842547825) VOL%O2 ART (test code = 16.9 % 15.0-23.0 9787847280) NA (test code = 136 mmol/L 135-145 3174306387) K+ (test code = 3.2 mmol/L 3.5-5.0 L 8030722559) AC CA IONZ (test code = 4.60 mg/dL 4.50-5.30 3476712128) GLUCOSE (test code = 128 mg/dL 70-110 H 8971317016) LACTIC ACID (test code 0.96 mmol/L 0.50-2.20 = 1394031810) Lab Interpretation Abnormal (test code = 09912-9) [facility]22-[facility]-09 04:41:21 Test Item Value Reference Range Interpretation Comments POCT GLU (test code = 7002761185) 161 mg/dL 70-110 H Lab Interpretation (test code = Abnormal 32990-9) [facility] 20 + Lactic [id number] 04:03:14 Test Item Value Reference Range Interpretation Comments PH (test code = 2) 7.50 7.35-7.45 H PCO2 (test code = 45 See_Comment [Automate d 5500862096) message] The sy stem which generated this result transmitted reference range : 35 - 45 mmHg. The reference range was not used to interpret this result as normal/abnormal . PO2 (test code = 89 See_Comment [Automated 3461178249) message] The sy stem which generated this result transmitted reference range : 80 - 100 mmHg. The reference range was not used to interpret this result as normal/abnormal . HCO3 (test code = 35 See_Comment H [Automate d 8524798469) message] The sy stem which generated this result transmitted reference range : 22 - 26 mEq/L. The reference range was not used to interpret this result as normal/abnormal . BE (test code = 10.0 See_Comment H [Automated 5992591203) message] The sy stem which generated this result transmitted reference range : -3.0 - 3.0 mEq/ L. The reference r josselyn was not used to interpret this result as normal/abnormal . THB (test code = 10.2 g/dL 12.0-16.0 L 7654271637) %O2HB (test code = 97.1 % 94.0-99.0 1854975710) %COHB ART (test code = 0.3 % 0.0-1.5 9951526733) %METHB ART (test code = 0.0 % 0.4-1.5 L 4029367658) VOL%O2 ART (test code = 14.1 % 15.0-23.0 L 0137227725) NA (test code = 135 mmol/L 135-145 9097233030) K+ (test code = 3.3 mmol/L 3.5-5.0 L 0995135866) AC CA IONZ (test code = 4.60 mg/dL 4.50-5.30 2356846076) GLUCOSE (test code = 162 mg/dL 70-110 H 4532773371) LACTIC ACID (test code 1.23 mmol/L 0.50-2.20 = 8134250324) Lab Interpretation Abnormal (test code = 00750-0) [facility] GLUCOSE (AUTOMATED)2022-12-09 00:36:59 Test Item Value Reference Range Interpretation Comments POCT GLU (test code = 1975951430) 141 mg/dL 70-110 H Lab Interpretation (test code = Abnormal 32383-8) [facility] GLUCOSE (AUTOMATED)2022-12-08 22:08:57 Test Item Value Reference Range Interpretation Comments POCT GLU (test code = 6384310336) 143 mg/dL 70-110 H Lab Interpretation (test code = Abnormal 39951-4) [facility] 17:00:53 Test Item Value Reference Range Interpretation Comments LIPASE (test code = 9367487340) 10 U/L 0-220 Lab Interpretation (test code = Normal 65913-7) [facility] GLUCOSE (AUTOMATED)2022-12-08 12:58:21 Test Item Value Reference Range Interpretation Comments POCT GLU (test code = 5890261621) 92 mg/dL 70-110 Lab Interpretation (test code = Normal 16668-5) [facility] WITHOUT [id number] 12:02:38 Test Item Value Reference Range Interpretation Comments WBC (test code = 6690-2) 11.45 See_Comment H [A utomated message] The system [employer] generated this result transmit alden reference range : 4.30 - 11.10 10*3/?L. The reference range was not used to interpret this result as normal/abnormal . RBC (test code = 789-8) 3.16 See_Comment L [Au tomated message] The system [employer] generated this result transmit alden reference range : 3.93 - 5.25 10* 6/?L. The reference r josselyn was not used to interpret this result as normal/abnormal . HGB (test code = 718-7) 9.2 g/dL 11.6-15.0 L HCT (test code = 4544-3) 27.7 % 35.7-45.2 L MCH (test code = 785-6) 29.1 pg 25.9-32.8 MCV (test code = 787-2) 87.7 fL 80.6-95.5 MCHC (test code = 786-4) 33.2 g/dL 31.6-35.1 PLT (test code = 777-3) 254 See_Comment [Au tomated message] The system [employer] generated this result transmit alden reference range : 166 - 358 10*3/?L. The reference range was not used to interpret this result as normal/abnormal . MPV (test code = 9.8 fL 9.5-12.9 57500-2) RDW-CV (test code = 14.1 % 12.0-15.5 788-0) RDW-SD (test code = 43.3 fL 39.0-49.9 93157-8) NRBC x10^3 (test code = See_Comment [Au tomated message] 4499413962) The system [employer] generated this result transmit alden reference range : 10*3/?L. The reference range was not used to interpret this result as normal/abnormal . NRBC/100 WBC (test code 0.0 See_Comment [Au tomated message] = 5156333566) The system [employer] generated this result transmit alden reference range : 0.0 - 10.0 /100 WBC s. The reference r josselyn was not used to interpret this result as normal/abnormal . IPF % (test code = 1649840562) Lab Interpretation (test Abnormal code = 09680-9) [facility] METABOLIC PANEL (NA, K, CL, CO2, GLUCOSE, BUN, CREATININE, CA)2022-12-08 10:10:30 Test Item Value Reference Range Interpretation Comments NA (test code = 138 mmol/L 135-145 7947627319) K (test code = 3.9 mmol/L 3.5-5.0 Slight 7786666706) hemolysis CL (test code = 93 mmol/L 98-108 L 0638195712) CO2 TOTAL (test code 38 mmol/L 23-31 H = 8067693478) AGAP (test code = 7 2-16 9722563913) BUN (test code = 29 mg/dL 7-23 H Slight 5883564104) hemolysis GLUCOSE (test code = 99 mg/dL 70-110 4596913160) CREATININE (test code 0.76 mg/dL 0.50-1.04 = 0836846829) CALCIUM (test code = 9.2 mg/dL 8.6-10.6 7767507558) eGFR (test code = 77.4 mL/min/1.73m2 7227007700) JENNIFFER (test code = JENNIFFER) Association of Glomerular Filtration Rate (GFR) and Staging of Kidney Disease* + -----+ --------+ +| GFR (mL/min/1.73 m2) ?| With Kidney Damage ?| ?Without Kidney Damage+ +------- +---- --+| ?>90 ?| ?Stage one ?| ? Normal ?+ ------+ ---------+--------- +| ?60-89 ?| ?Stage two ?| ? Decreased GFR ? + -----+ --------+ +| ?30-59 ?| ?Stage three ?| ? Stage three ? + -----+ --------+ +| ?15-29 ?| ?Stage four ? | ? Stage four ?+ ------+ ---------+--------- +| ?<15 (or dialysis) ? ?| ?Stage five ? | ? Stage five ?+ ------+ ---------+--------- + *Each stage assumes the associated GFR level [...] tests). Lab Interpretation Abnormal (test code = 83578-9) [facility] Test Item Value Reference Range Interpretation Comments MAGNESIUM (test code = 4690435580) 2.0 mg/dL 1.7-2.4 Lab Interpretation (test code = Normal 99180-6) [facility] GLUCOSE (AUTOMATED)2022-12-08 09:02:24 Test Item Value Reference Range Interpretation Comments POCT GLU (test code = 8371795891) 129 mg/dL 70-110 H Lab Interpretation (test code = Abnormal 54039-0) [facility] GLUCOSE (AUTOMATED)2022-12-08 04:46:08 Test Item Value Reference Range Interpretation Comments POCT GLU (test code = 6672823236) 201 mg/dL 70-110 H Lab Interpretation (test code = Abnormal 95696-7) [facility] GLUCOSE (AUTOMATED)2022-12-08 01:03:54 Test Item Value Reference Range Interpretation Comments POCT GLU (test code = 5443578832) 236 mg/dL 70-110 H Lab Interpretation (test code = Abnormal 07851-9) [facility] GLUCOSE (AUTOMATED)2022-12-07 22:01:17 Test Item Value Reference Range Interpretation Comments POCT GLU (test code = 7660585965) 320 mg/dL 70-110 H Lab Interpretation (test code = Abnormal 71528-5) [facility] Arterial Blood Gas.2022-12-07 18:09:39 Test Item Value Reference Range Interpretation Comments PH (test code = 2) 7.37 7.35-7.45 PCO2 (test code = 69 See_Comment H [Automate d message] 3838230699) The system [employer] generated this result transmitted ref erence range: 35 - 45 mmHg. The reference r josselyn was not used to interpret this result as normal/abnor mal. PO2 (test code = 380 See_Comment H [Automated message] 7231759491) The system [employer] generated this result transmitted ref erence range: 80 - 100 mmHg. The reference r josselyn was not used to interpret this result as normal/abnor mal. HCO3 (test code = 39 See_Comment H [Automate d message] 9360274101) The system [employer] generated this result transmitted ref erence range: 22 - 26 mEq/L. The reference r josselyn was not used to interpret this result as normal/abnor mal. BE (test code = 10.9 See_Comment H [Automated message] 2686966743) The system [employer] generated this result transmitted ref erence range: -3.0 - 3 .0 mEq/L. The refe rence range was not u sed to interpret this result as normal/abnor mal. Lab Interpretation (test Abnormal code = 17434-0) [id number]:39:20 Test Item Value Reference Range Interpretation Comments HEMOGLOBIN A1C 8.0 % See_Comment H [Automated m essage] ELECTROPHORESIS (BEAKER) The system which (test code = 3811) generated this result transmitted ref erence range: <=5.6%. The reference range was not used to int erpret this result as normal/abnormal . "The A1c is measured using a NGSP-certified method. HbA1c value equal to or greater than 6.5% as thediagnosis cutoff for diabetes. An HbA1c value of 5.7- 6.4% indicates increased risk for diabetes (prediabetes)."Field Pipelines Supervisor ID - ADMOperator ID - ADMPOC-Glucose [id number] 10:22:15 Test Item Value Reference Range Interpretation Comments POC-Glucose Meter (test 205 mg/dL 70-110 H : TE STED AT [facility] code = 1538) [address] [facility], 770 30: Field Pipelines Supervisor/Techni parag ID = [id number] for COWAN, VANESS A Lab Interpretation (test Abnormal code = 04179-0) [facility] [id number] 10:22:15 Test Item Value Reference Range Interpretation Comments POC-Glucose Meter (test 205 mg/dL 70-110 H : TE STED AT [facility] code = 1538) [address] [facility], 770 30: Field Pipelines Supervisor/Techni parag ID = [id number] for COWAN, VANESS A Lab Interpretation (test Abnormal code = 94846-3) [facility] [id number] 10:22:15 Test Item Value Reference Range Interpretation Comments POC-GLUCOSE METER 205 mg/dL 70-110 H : TESTED A T [facility] 6720 (BEAKER) (test code = IRVIN Mendez [facility], 1538) [address]: Field Pipelines Supervisor/Techni parag ID = [id number] for AG UILAR, MISHA RAD, CHEST, 1 VIEW, NON [id number] 10:14:00Reason for exam:->sobShould this be performed at the bedside?->Yes [facility]STA : 1960 Sex: FFINALREPORT INDICATION: sob COMPARISON: None TECHNIQUE: Single frontal view of the chest. FINDINGS: Lungs and pleura: Trace bilateral effusions and adjacent atelectasis.Heart and mediastinum: Normal heart size. Unremarkable mediastinal contours.Osseous structures: No acute abnormality.Other: Tracheostomy. Signed: Selma Niño MDReport Verified Date/Time: 11/26/2022 10:14:47 Reading Location: [address] Reading Room COMPREHENSIVE METABOLIC PANEL 2022-11-26 [...] G3b Moderately to s everely 30-44 G4 Sever ly decreased 15-29 G5 Kidney failure <15Repo rted eGFR is based on the CKD-EPI 2020 equation t hat does not use a race coefficientEsti mated GFR is not as accur ate as Creatinine Janie cecelia in predicting glom erular filtration rate . Estimated GFR is not appl icable for dialysis patien ts Field Pipelines Supervisor ID - [id number] 06:58:15 Test Item Value Reference Range Interpretation Comments MAGNESIUM (BEAKER) (test code = 2.2 mg/dL 1.6-2.6 627) Field Pipelines Supervisor ID - ADMINCBC W/PLT COUNT & AUTO [id number] 06:28:22 Test Item Value Reference Range Interpretation [...] PERCENT (BEAKER) (test code = 2801) POCT-GLUCOSE [id number] 23:33:03 Test Item Value Reference Range Interpretation Comments POC-GLUCOSE METER 193 mg/dL 70-110 H : TESTED A T [facility] 6720 (BEAKER) (test code = IRVIN TAMAYO [place], 1538) [address]: Field Pipelines Supervisor/Techni parag ID = [id number] for Af zaal, Sean T4, [id number] 18:42:05 Test Item Value Reference Range Interpretation Comments FREE T4 (BEAKER) (test code = 655) 1.17 ng/dL 0.70-1.48 Field Pipelines Supervisor ID - DBTSH/FREE T4 IF [id number] 18:08:13 Test Item Value Reference Range Interpretation Comments THYROID STIMULATING HORMONE 0.100 uIU/mL 0.350-4.940 L (BEAKER) (test code = 772) Field Pipelines Supervisor ID - [id number] 17:37:29 Test Item Value Reference Range Interpretation Comments MAGNESIUM (BEAKER) 2.2 mg/dL 1.6-2.6 Specimen slightly (test code = 627) hemolyzed Field Pipelines Supervisor ID - ADMINCOMPREHENSIVE METABOLIC [id number] 17:37:29 Test Item Value Reference Range Interpretation [...] G3b Moderately to s everely 30-44 G4 Sever ly decreased 15-29 G5 Kidney failure <15Repo rted eGFR is based on the CKD-EPI 2020 equation t hat does not use a race coefficientEsti mated GFR is not as accur ate as Creatinine Janie cecelia in predicting glom erular filtration rate . Estimated GFR is not appl icable for dialysis patien ts Field Pipelines Supervisor ID - ADMINB-TYPE NATRIURETIC FACTOR (BNP)2022-11-25 17:37:29 Test Item Value Reference Range Interpretation Comments B-TYPE NATRIURETIC PEPTIDE (BEAKER) 35 pg/mL 0-100 (test code = 700) Field Pipelines Supervisor ID - ADMINCBC W/PLT COUNT & AUTO [id number] 17:08:37 Test Item Value Reference Range Interpretation [...] PERCENT (BEAKER) (test code = 2801) POCT-GLUCOSE [id number] 16:44:23 Test Item Value Reference Range Interpretation Comments POC-GLUCOSE METER 192 mg/dL 70-110 H : TESTED A T [facility] 6720 (BEAKER) (test code = [facility], 1538) [address]: Field Pipelines Supervisor/Techni parag ID = [id number] for LAURA VIVEROS POCT-GLUCOSE [id number] 09:19:54 Test Item Value Reference Range Interpretation Comments POC-GLUCOSE METER 205 mg/dL 70-110 H : TESTED A T [facility] 6720 (BEAKER) (test code = [facility] [employer] [facility], 1538) [address]: Field Pipelines Supervisor/Techni parag ID = [id number] for CAMILLA HERNDON POCT GLUCOSE (AUTOMATED)2022-08-10 20:26:18 Test Item Value Reference Range Interpretation Comments POCT GLU (test code = 4787236538) 178 mg/dL 70-110 H Lab Interpretation (test code = Abnormal 81048-7) [facility] GLUCOSE (AUTOMATED)2022-08-10 20:26:17 Test Item Value Reference Range Interpretation Comments POCT GLU (test code = 7432533047) 134 mg/dL 70-110 H Lab Interpretation (test code = Abnormal 31866-1) [facility] GLUCOSE (AUTOMATED)2022-08-10 09:35:52 Test Item Value Reference Range Interpretation Comments POCT GLU (test code = 4402466022) 240 mg/dL 70-110 H Lab Interpretation (test code = Abnormal 68553-4) [facility] GLUCOSE (AUTOMATED)2022-08-10 06:09:42 Test Item Value Reference Range Interpretation Comments POCT GLU (test code = 3594585933) 219 mg/dL 70-110 H Lab Interpretation (test code = Abnormal 76044-4) [facility] GLUCOSE (AUTOMATED)2022-08-10 02:27:50 Test Item Value Reference Range Interpretation Comments POCT GLU (test code = 3194030138) 264 mg/dL 70-110 H Lab Interpretation (test code = Abnormal 89808-4) [facility] GLUCOSE (AUTOMATED)2022-08-09 22:32:46 Test Item Value Reference Range Interpretation Comments POCT GLU (test code = 4130948326) 327 mg/dL 70-110 H Lab Interpretation (test code = Abnormal 24352-1) [facility] GLUCOSE (AUTOMATED)2022-08-09 13:19:52 Test Item Value Reference Range Interpretation Comments POCT GLU (test code = 7250954057) 196 mg/dL 70-110 H Lab Interpretation (test code = Abnormal 62779-8) [facility]11 Test Item Value Reference Range Interpretation Comments MAGNESIUM (test code = 8412155591) 2.5 mg/dL 1.7-2.4 H Lab Interpretation (test code = Abnormal 37272-1) [facility] (NA, K, CL, CO2, GLUCOSE, BUN, CREATININE, CA)2022-08-09 12:10:06 Test Item Value Reference Range Interpretation Comments NA (test code = 137 mmol/L 135-145 3008545215) K (test code = 4.3 mmol/L 3.5-5.0 8218973471) CL (test code = 101 mmol/L 98-108 4002366783) CO2 TOTAL (test code = 35 mmol/L 23-31 H 4311612406) AGAP (test code = 2-16 L 5400146852) BUN (test code = 22 mg/dL 7-23 8208264936) GLUCOSE (test code = 186 mg/dL 70-110 H 3419938856) CREATININE (test code = 0.82 mg/dL 0.50-1.04 0433628932) CALCIUM (test code = 8.2 mg/dL 8.6-10.6 L 3198962543) eGFR (test code = mL/min/1.73m2 8433342571) JENNIFFER (test code = JENNIFFER) Association of [...] tests). Lab Interpretation Abnormal (test code = 91807-2) [facility] 12:09:46 Test Item Value Reference Range Interpretation Comments PHOSPHORUS (test code = 5415256592) 3.2 mg/dL 2.5-5.0 Lab Interpretation (test code = Normal 68182-3) [facility] WITH [id number] 12:03:07 Test Item Value Reference Range Interpretation Comments WBC (test code = See_Comment [Automated 5390-2) message] The sy stem which generated this [...] RDW-SD (test code = 47.1 fL 39.0-49.9 03167-8) RDW-CV (test code = 14.6 % 12.0-15.5 788-0) PLT (test code = See_Comment [Automated 777-3) message] The sy stem which generated this result transmitted reference range : 166 - 358 10*3/ ?L. The reference r josselyn was not used to interpret this result as normal/abnormal . MPV (test code = 9.5 fL 9.5-12.9 98377-6) NRBC/100 WBC (test See_Comment [Automat ed code = 1006371581) message] The system which generated this result transmitted reference range : 0.0 - 10.0 /100 WBCs. The refer ence range was not u sed to interpret th is result as normal/abnormal . NRBC x10^3 (test code See_Comment [Auto mated = 0557194050) message] The s ystem which generated this result transmitted reference range : 10*3/?L. The reference range was not used to interpret this result as normal/abnormal . GRAN MAT (NEUT) % 85.8 % (test code = 770-8) IMM GRAN % (test code 2.50 % = 1816863952) LYMPH % (test code = 6.7 % 736-9) MONO % (test code = 4.8 % 5905-5) EOS % (test code = 0.1 % 713-8) BASO % (test code = 0.1 % 706-2) GRAN MAT x10^3(ANC) 7.74 10*3/uL 1.88-7.09 H (test code = 1237011593) IMM GRAN x10^3 (test 0.23 10*3/uL 0.00-0.06 H code = 7869443217) LYMPH x10^3 (test code 0.60 10*3/uL 1.32-3.29 L = 731-0) MONO x10^3 (test code 0.43 10*3/uL 0.33-0.92 = 742-7) EOS x10^3 (test code = 0.03-0.39 L 711-2) BASO x10^3 (test code 0.01-0.07 = 704-7) Lab Interpretation Abnormal (test code = 14048-3) [facility] GLUCOSE (AUTOMATED)2022-08-09 11:54:17 Test Item Value Reference Range Interpretation Comments POCT GLU (test code = 1302860585) 202 mg/dL 70-110 H Lab Interpretation (test code = Abnormal 11598-3) [facility] GLUCOSE (AUTOMATED)2022-08-09 06:19:48 Test Item Value Reference Range Interpretation Comments POCT GLU (test code = 4056117326) 231 mg/dL 70-110 H Lab Interpretation (test code = Abnormal 56760-4) [facility] GLUCOSE (AUTOMATED)2022-08-09 02:32:58 Test Item Value Reference Range Interpretation Comments POCT GLU (test code = 8425148992) 316 mg/dL 70-110 H Lab Interpretation (test code = Abnormal 98279-8) [facility] GLUCOSE (AUTOMATED)2022-08-09 02:28:52 Test Item Value Reference Range Interpretation Comments POCT GLU (test code = 7625012978) 363 mg/dL 70-110 H Lab Interpretation (test code = Abnormal 46372-0) [facility] GLUCOSE (AUTOMATED)2022-08-08 17:32:51 Test Item Value Reference Range Interpretation Comments POCT GLU (test code = 6081630670) 201 mg/dL 70-110 H Lab Interpretation (test code = Abnormal 46517-4) [facility] GLUCOSE (AUTOMATED)2022-08-08 17:32:51 Test Item Value Reference Range Interpretation Comments POCT GLU (test code = 0285822045) 251 mg/dL 70-110 H Lab Interpretation (test code = Abnormal 93389-3) [facility] GLUCOSE (AUTOMATED)2022-08-08 10:02:25 Test Item Value Reference Range Interpretation Comments POCT GLU (test code = 0886104581) 153 mg/dL 70-110 H Lab Interpretation (test code = Abnormal 27406-1) [facility] GLUCOSE (AUTOMATED)2022-08-08 06:20:09 Test Item Value Reference Range Interpretation Comments POCT GLU (test code = 2402593363) 224 mg/dL 70-110 H Lab Interpretation (test code = Abnormal 38611-5) [facility] GLUCOSE (AUTOMATED)2022-08-08 02:43:59 Test Item Value Reference Range Interpretation Comments POCT GLU (test code = 3262810851) 256 mg/dL 70-110 H Lab Interpretation (test code = Abnormal 31979-2) [facility] GLUCOSE (AUTOMATED)2022-08-07 22:28:36 Test Item Value Reference Range Interpretation Comments POCT GLU (test code = 7552044049) 273 mg/dL 70-110 H Lab Interpretation (test code = Abnormal 15391-7) [facility] 22:15:07 Test Item Value Reference Range Interpretation Comments Height (test code = in 5515934337) Weight (test code = lbs 5293790239) Systolic BP (test code = mmHg 3766859502) Diastolic BP (test code mmHg = 9961908563) Heart Rate (test code = bpm 9625247495) BSA (test code = 1.96 m2 8547446325) Ao root diam (test code 3.30 cm = 6519587811) Aortic root (test code = 3.3 cm 6519059066) Ao root annulus (test 3.3 cm code = 6032128769) LVOT diameter (test code 1.80 cm = 1521708798) LVOT area (test code = 2.60 cm2 0744143137) LVIDD (test code = 3.50 cm 2876888783) Left Ventricular End 51.9 mL Diastolic Volume by Teichholz Method (test code = 0250221) IVS (test code = 1.24 cm 8836995948) Interventricular Septum 1.24 cm Diastolic Thickness by 2D (test code = 3559395) LVPWD (test code = 1.24 cm 7509615552) PW (test code = 1.24 cm 0.6-1.1 8528531262) EF(Teich) (test code = 58.70 % 7197255115) LVIDS (test code = 2.46 cm 9943765440) Left Ventricular End 21.4 mL Systolic Volume by Teichholz Method (test code = 6016218) FS (test code = 30 % 8499090902) EF - 2D (test code = 58.70 % 52809680) LA size (test code = 2.9 cm 7582183002) MV Peak E Marva (test code 81.4 cm/s = 4845084039) MV stenosis pressure 1/2 76.6 ms time (test code = 6593860797) E wave decelartion time 0.26 s (test code = 0291464009) MV Peak A Marva (test code 87.8 cm/s = 6708578662) E/A ratio (test code = ratio 1062753041) MV Prop V (test code = 139.40 cm/s 1066482607) MV E/e' septal (test 7.4 cm/s code = 0492923371) Tapse (test code = 1.61 cm 2812924141) LVOT stroke volume (test 53.30 cm3 code = 4258986447) LVOT peak marva (test code 128.1 cm/s = 6199132533) LVOT mn grad (test code mmHg = 0421052795) AV LVOT peak gradient mmHg (test code = 2769812233) LVOT peak VTI (test code 20.9 cm = 8264617078) LV V1 mean (test code = 86.80 cm/s 1730223618) Aortic valve mean 119.8 cm/s velocity (test code = 7775070788) Ao peak marva (test code = 175.1 cm/s 6416569011) Ao VTI (test code = 28.5 cm 8149843019) AV area by cont VTI 1.9 cm2 (test code = 3258291588) AV area peak marva (test 1.9 cm2 code = 5191535890) Ao max PG (test code = 12.30 mm[Hg] 7872818063) AV peak gradient (test mmHg code = 1304731470) AV valve area (test code 1.87 cm2 = 5527138569) AV mean gradient (test mmHg code = 2330050148) Radiology Study observation (narrative) (test code = 19528-6) JENNIFFER (test code = JENNIFFER) Table formatting [...] 168 mg/dL 70-110 H Notifi ed Provider 1425285929) Lab Interpretation (test Abnormal code = 00629-3) [facility] [id number] 14:57:11 Test Item Value Reference Range Interpretation Comments TSH (test code = See_Comment Biotin has been 8804821478) reported to cau se a negative bias, interpret resul ts relative to pat ient's use of biotin. [Automated mess age] The system whic CodeHS generated this result transmitted ref erence range: 0.45 - 4 .70 mIU/L. The refe rence range was not u sed to interpret this result as normal/abnor mal. Lab Interpretation (test Normal code = 99150-0) [facility] GLUCOSE (AUTOMATED)2022-08-07 13:46:07 Test Item Value Reference Range Interpretation Comments POCT GLU (test code = 8085846569) 180 mg/dL 70-110 H Lab Interpretation (test code = Abnormal 93808-7) [facility] GLUCOSE (AUTOMATED)2022-08-07 12:34:16 Test Item Value Reference Range Interpretation Comments POCT GLU (test code = 3365554242) 198 mg/dL 70-110 H Lab Interpretation (test code = Abnormal 31032-5) [facility] [id number] 12:27:41 Test Item Value Reference Interpretation Comments Range TROPONIN I (test 0.005 ng/mL See_Comment [Automated code = 4219579320) message] The system which generated this result [...] biotin. Lab Interpretation Normal (test code = 98290-9) [facility]AL [id number] 12:24:19 Test Item Value Reference Range Interpretation Comments NT-proBNP (test code 332 pg/mL See_Comment H [Autom ated = 4596747712) message] The system which generated this result transmitted reference range : <=125. The reference range was not used to interpret this result as normal/abnormal . JENNIFFER (test code = JENNIFFER) Biotin has been reported to cause a negative bias, interpret results relative to patient's use of biotin. Lab Interpretation Abnormal (test code = 16801-6) [facility]. METABOLIC PANEL (95996)2022-08-07 12:17:19 Test Item Value Reference Range Interpretation Comments NA (test code = 137 mmol/L 135-145 0231723717) K (test code = 4.3 mmol/L 3.5-5.0 6542308167) CL (test code = 103 mmol/L 98-108 7458932615) CO2 TOTAL (test code = 30 mmol/L 23-31 5428927532) AGAP (test code = 2-16 5644520186) BUN (test code = 30 mg/dL 7-23 H 8309034754) GLUCOSE (test code = 198 mg/dL 70-110 H 0236923710) CREATININE (test code = 0.93 mg/dL 0.50-1.04 3459891387) TOTAL BILI (test code = 0.4 mg/dL 0.1-1.0 7354135866) CALCIUM (test code = 8.3 mg/dL 8.6-10.6 L 8978547509) T PROTEIN (test code = 6.0 g/dL 6.3-8.2 L 0196681911) ALBUMIN (test code = 3.2 g/dL 3.5-5.0 L 7455676818) ALK PHOS (test code = 70 U/L 34-122 7115004505) ALTv (test code = 23 U/L 5-35 1742-6) AST(SGOT) (test code = 22 U/L 13-40 0484612037) eGFR (test code = mL/min/1.73m2 0857777464) JENNIFFER (test code = JENNIFFER) Association of [...] tests). Lab Interpretation Abnormal (test code = 90332-6) [facility] 12:17:19 Test Item Value Reference Range Interpretation Comments MAGNESIUM (test code = 9022738115) 2.4 mg/dL 1.7-2.4 Lab Interpretation (test code = Normal 26737-2) [facility] 12:16:59 Test Item Value Reference Range Interpretation Comments PHOSPHORUS (test code = 2826209431) 3.3 mg/dL 2.5-5.0 Lab Interpretation (test code = Normal 00895-7) [facility] WITH [id number] 12:16:18 Test Item Value Reference Range Interpretation Comments WBC (test code = See_Comment H [Automated 7390-2) message] The system which generated this result transmit alden reference range : 4.30 - 11.10 10*3/?L. The reference range was not used to interpret this result as normal/abnormal . RBC (test code = See_Comment L [Automated 329-8) message] The system which generated this result [...] (test code = 50.2 fL 39.0-49.9 H 00223-2) RDW-CV (test code = 15.1 % 12.0-15.5 788-0) PLT (test code = See_Comment [Automated 777-3) message] The system which generated this result transmit alden reference range : 166 - 358 10*3/ ?L. The reference range was not u sed to interpret th is result as normal/abnormal . MPV (test code = 10.0 fL 9.5-12.9 02216-7) NRBC/100 WBC (test See_Comment [Automat ed code = 2357342612) message] The system which generated this result transmit alden reference range : 0.0 - 10.0 /100 WBCs. The reference range was not used to interpret this result as normal/abnormal . NRBC x10^3 (test code See_Comment [Auto mated = 1755097517) message] The system which generated this result transmit alden reference range : 10*3/?L. The reference range was not used to interpret this result as normal/abnormal . GRAN MAT (NEUT) % 87.7 % (test code = 770-8) IMM GRAN % (test code 1.10 % = 4171825497) LYMPH % (test code = 7.7 % 736-9) MONO % (test code = 3.4 % 5905-5) EOS % (test code = 0.0 % 713-8) BASO % (test code = 0.1 % 706-2) GRAN MAT x10^3(ANC) 11.83 10*3/uL 1.88-7.09 H (test code = 2986339574) IMM GRAN x10^3 (test 0.15 10*3/uL 0.00-0.06 H code = 0573921230) LYMPH x10^3 (test code 1.04 10*3/uL 1.32-3.29 L = 731-0) MONO x10^3 (test code 0.46 10*3/uL 0.33-0.92 = 742-7) EOS x10^3 (test code = 0.03-0.39 L 711-2) BASO x10^3 (test code 0.01-0.07 = 704-7) Lab Interpretation Abnormal (test code = 73834-1) [facility]/BILI [id number] 12:16:18 Test Item Value Reference Range Interpretation Comments BILI CONJ (test code = 7933823912) 0.0 mg/dL 0.0-0.3 BILI UNCON (test code = 0676107024) 0.2 mg/dL 0.1-1.1 Lab Interpretation (test code = Normal 14571-5) [facility] GLUCOSE (AUTOMATED)2022-08-07 10:20:14 Test Item Value Reference Range Interpretation Comments POCT GLU (test code = 7205919264) 227 mg/dL 70-110 H Lab Interpretation (test code = Abnormal 29906-7) [facility] GLUCOSE (AUTOMATED)2022-08-07 05:43:17 Test Item Value Reference Range Interpretation Comments POCT GLU (test code = 2284039637) 162 mg/dL 70-110 H Lab Interpretation (test code = Abnormal 25076-2) [facility] GLUCOSE (AUTOMATED)2022-08-07 02:28:42 Test Item Value Reference Range Interpretation Comments POCT GLU (test code = 2546078895) 229 mg/dL 70-110 H Lab Interpretation (test code = Abnormal 97984-4) [facility] GLUCOSE (AUTOMATED)2022-08-06 17:18:17 Test Item Value Reference Range Interpretation Comments POCT GLU (test code = 7715337536) 223 mg/dL 70-110 H Lab Interpretation (test code = Abnormal 18059-8) [facility] HospitalLaok[facility] Whole [id number] 13:38:44 Test Item Value Reference Range Interpretation Comments LACTIC ACID (test code = 1.93 mmol/L 0.50-2.20 1966206094) Lab Interpretation (test code = Normal 39672-9) [facility]2022-08-06 13:29:26 Test Item Value Reference Range Interpretation Comments POCT GLU (test code = 8282019405) 261 mg/dL 70-110 H Lab Interpretation (test code = Abnormal 66298-5) [facility] [id number] 12:40:18 Test Item Value Reference Interpretation Comments Range TROPONIN I (test 0.002 ng/mL See_Comment [Automated code = 2507672510) message] The system which generated this result [...] biotin. Lab Interpretation Normal (test code = 82139-7) [id number] 12:37:16 Test Item Value Reference Range Interpretation Comments NT-proBNP (test code 480 pg/mL See_Comment H [Autom ated = 5186351216) message] The system which generated this result transmitted reference range : <=125. The reference range was not used to interpret this result as normal/abnormal . JENNIFFER (test code = JENNIFFER) Biotin has been reported to cause a negative bias, interpret results relative to patient's use of biotin. Lab Interpretation Abnormal (test code = 04021-9) [facility] (16709[facility]2022-08-06 12:28:53 Test Item Value Reference Range Interpretation Comments NA (test code = 136 mmol/L 135-145 3812656512) K (test code = 4.3 mmol/L 3.5-5.0 8100235354) CL (test code = 99 mmol/L 98-108 5156342606) CO2 TOTAL (test code = 36 mmol/L 23-31 H 4458141566) AGAP (test code = 2-16 L 9558175624) BUN (test code = 30 mg/dL 7-23 H 4324114729) GLUCOSE (test code = 246 mg/dL 70-110 H 3473809734) CREATININE (test code = 0.94 mg/dL 0.50-1.04 1493453666) TOTAL BILI (test code = 0.5 mg/dL 0.1-1.1 9490062402) CALCIUM (test code = 8.6 mg/dL 8.6-10.6 0321952899) T PROTEIN (test code = 5.9 g/dL 6.3-8.2 L 2858103679) ALBUMIN (test code = 3.2 g/dL 3.5-5.0 L 8356146513) ALK PHOS (test code = 81 U/L 34-122 5086784999) ALTv (test code = 24 U/L 5-35 1742-6) AST(SGOT) (test code = 23 U/L 13-40 7916136327) eGFR (test code = mL/min/1.73m2 4482534520) JENNIFFER (test code = JENNIFFER) Association of [...] tests). Lab Interpretation Abnormal (test code = 77273-1) [facility]:28:53 Test Item Value Reference Range Interpretation Comments MAGNESIUM (test code = 2330214658) 2.2 mg/dL 1.7-2.4 Lab Interpretation (test code = Normal 37216-2) [facility] 12:28:33 Test Item Value Reference Range Interpretation Comments PHOSPHORUS (test code = 7600128454) 2.9 mg/dL 2.5-5.0 Lab Interpretation (test code = Normal 28980-2) [facility] [id number] 12:28:13 Test Item Value Reference Range Interpretation Comments CK (test code = 5591670069) 21 U/L 33-194 L Lab Interpretation (test code = Abnormal 32293-1) [facility] GLUCOSE (AUTOMATED)2022-08-06 11:29:35 Test Item Value Reference Range Interpretation Comments POCT GLU (test code = 9335963146) 275 mg/dL 70-110 H Lab Interpretation (test code = Abnormal 29030-9) [facility] GLUCOSE (AUTOMATED)2022-08-06 06:56:17 Test Item Value Reference Range Interpretation Comments POCT GLU (test code = 2184363015) 248 mg/dL 70-110 H Lab Interpretation (test code = Abnormal 28167-0) [facility] GLUCOSE (AUTOMATED)2022-08-06 02:34:33 Test Item Value Reference Range Interpretation Comments POCT GLU (test code = 5532627556) 255 mg/dL 70-110 H Lab Interpretation (test code = Abnormal 22090-4) [facility] GLUCOSE (AUTOMATED)2022-08-05 23:01:47 Test Item Value Reference Range Interpretation Comments POCT GLU (test code = 6302323108) 277 mg/dL 70-110 H Lab Interpretation (test code = Abnormal 38218-8) [facility] [id number] 22:36:41 Test Item Value Reference Interpretation Comments Range TROPONIN I (test 0.001 ng/mL See_Comment [Automated code = 7507811628) message] The system which generated this result [...] biotin. Lab Interpretation Normal (test code = 84750-1) [facility] GLUCOSE (AUTOMATED)2022-08-05 17:57:05 Test Item Value Reference Range Interpretation Comments POCT GLU (test code = 8449483901) 306 mg/dL 70-110 H Lab Interpretation (test code = Abnormal 73848-4) [facility] GLUCOSE (AUTOMATED)2022-08-05 13:44:12 Test Item Value Reference Range Interpretation Comments POCT GLU (test code = 2931390640) 376 mg/dL 70-110 H Lab Interpretation (test code = Abnormal 67539-7) [facility] [id number] 04:02:57 Test Item Value Reference Interpretation Comments Range TROPONIN I (test 0.001 ng/mL See_Comment [Automated code = 6924791918) message] The system which generated this result [...] biotin. Lab Interpretation Normal (test code = 32625-3) [facility] [id number] 03:59:58 Test Item Value Reference Range Interpretation Comments NT-proBNP (test code 100 pg/mL See_Comment [Autom ated = 9785567587) message] The system which generated this result transmitted reference range : <=125. The reference range was not used to interpret this result as normal/abnormal . JENNIFFER (test code = JENNIFFER) Biotin has been reported to cause a negative bias, interpret results relative to patient's use of biotin. Lab Interpretation Normal (test code = 94213-7) [facility] (93735[facility]2022-06-05 03:50:53 Test Item Value Reference Range Interpretation Comments NA (test code = 139 mmol/L 135-145 6561564345) K (test code = 5.0 mmol/L 3.5-5.0 7114129896) CL (test code = 96 mmol/L 98-108 L 1310890716) CO2 TOTAL (test code = 38 mmol/L 23-31 H 4736690341) AGAP (test code = 2-16 2742781782) BUN (test code = 19 mg/dL 7-23 9850498842) GLUCOSE (test code = 186 mg/dL 70-110 H 9999063950) CREATININE (test code = 0.83 mg/dL 0.50-1.04 2250742272) TOTAL BILI (test code = 0.8 mg/dL 0.1-1.3 9212041442) CALCIUM (test code = 8.9 mg/dL 8.6-10.6 1187249852) T PROTEIN (test code = 7.4 g/dL 6.3-8.2 8975825684) ALBUMIN (test code = 4.3 g/dL 3.5-5.0 8833180712) ALK PHOS (test code = 102 U/L 34-122 6550591460) ALTv (test code = 33 U/L 5-35 2-6) AST(SGOT) (test code = 40 U/L 13-40 0515663101) eGFR (test code = mL/min/1.73m2 7903911250) JENNIFFER (test code = JENNIFFER) Association of [...] tests). Lab Interpretation Abnormal (test code = 75914-5) [facility] WITH [id number] 03:35:15 Test Item Value Reference Range Interpretation Comments WBC (test code = See_Comment [Automated 0790-2) message] The sy stem which generated this [...] RDW-SD (test code = 49.0 fL 39.0-49.9 21139-5) RDW-CV (test code = 15.4 % 12.0-15.5 788-0) PLT (test code = See_Comment [Automated 777-3) message] The sy stem which generated this result transmitted reference range : 166 - 358 10*3/ ?L. The reference r josselyn was not used to interpret this result as normal/abnormal . MPV (test code = 9.0 fL 9.5-12.9 L 38614-0) NRBC/100 WBC (test See_Comment [Automat ed code = 3058799828) message] The system which generated this result transmitted reference range : 0.0 - 10.0 /100 WBCs. The refer ence range was not u sed to interpret th is result as normal/abnormal . NRBC x10^3 (test code See_Comment [Auto mated = 2071477897) message] The s ystem which generated this result transmitted reference range : 10*3/?L. The reference range was not used to interpret this result as normal/abnormal . GRAN MAT (NEUT) % 85.5 % (test code = 770-8) IMM GRAN % (test code 0.60 % = 0182801237) LYMPH % (test code = 7.7 % 736-9) MONO % (test code = 4.0 % 5905-5) EOS % (test code = 1.6 % 713-8) BASO % (test code = 0.6 % 706-2) GRAN MAT x10^3(ANC) 8.05 10*3/uL 1.88-7.09 H (test code = 0952374343) IMM GRAN x10^3 (test 0.06 10*3/uL 0.00-0.06 code = 7851395727) LYMPH x10^3 (test code 0.73 10*3/uL 1.32-3.29 L = 731-0) MONO x10^3 (test code 0.38 10*3/uL 0.33-0.92 = 742-7) EOS x10^3 (test code = 0.15 10*3/uL 0.03-0.39 711-2) BASO x10^3 (test code 0.06 10*3/uL 0.01-0.07 = 704-7) Lab Interpretation Abnormal (test code = 60067-1) [facility] [id number] 06:26:12 Test Item Value Reference Interpretation Comments Range TROPONIN I (test 0.002 ng/mL See_Comment [Automated code = 0492227692) message] The system which generated this result [...] biotin. Lab Interpretation Normal (test code = 74157-0) [facility] [id number] 06:23:11 Test Item Value Reference Range Interpretation Comments NT-proBNP (test code 81 pg/mL See_Comment [Autom ated = 3485875631) message] The system which generated this result transmitted reference range : <=125. The reference range was not used to interpret this result as normal/abnormal . JENNIFFER (test code = JENNIFFER) Biotin has been reported to cause a negative bias, interpret results relative to patient's use of biotin. Lab Interpretation Normal (test code = 24772-3) [facility] + LACTIC [id number] 06:21:05 Test Item Value Reference Range Interpretation Comments PH (test code = 7.32-7.42 L 2477497635) PCO2 CELIA (test code = See_Comment H [Auto mated 6534927791) message] The sy stem which generated this result transmitted reference range : 41 - 51 mmHg. The reference range was not used to interpret this result as normal/abnormal . PO2 CELIA (test code = See_Comment L [Autom ated 3964492450) message] The sy stem which generated this result transmitted reference range : 25 - 40 mmHg. The reference range was not used to interpret this result as normal/abnormal . HCO3 CELIA (test code = See_Comment H [Auto mated 5173886521) message] The sy stem which generated this result transmitted reference range : 24 - 28 mEq/L. The reference range was not used to interpret this result as normal/abnormal . AC VBE(BEAKER) (test mEq/L code = 3034809138) THB CELIA (test code = 12.3 g/dL 12-16 1175673073) %O2HB CELIA (test code = 38.2 % 52-63 L 9666780827) %COHB CELIA (test code = 0.7 % 0-1.5 5758249984) %METHB CELIA (test code = 0.3 % 0.4-1.5 L 5064671824) VOL%O2 CELIA (test code = 6.6 % 6-12 5202194897) NA (test code = 138 mmol/L 135-145 0794342815) K+ (test code = 4.2 mmol/L 3.5-5 3942236988) AC CA IONZ (test code = 4.70 mg/dL 4.5-5.3 3329318457) GLUCOSE (test code = 178 mg/dL 70-110 H 5307014235) LACTIC ACID (test code 1.11 mmol/L 0.5-2.2 = 6877254738) Lab Interpretation Abnormal (test code = 17428-7) [facility]. METABOLIC PANEL (53924)2022-05-02 06:14:48 Test Item Value Reference Range Interpretation Comments NA (test code = 140 mmol/L 135-145 4931305597) K (test code = 4.4 mmol/L 3.5-5 2994945974) CL (test code = 97 mmol/L 98-108 L 9024845588) CO2 TOTAL (test code = 35 mmol/L 23-31 H 1854974514) AGAP (test code = 2-16 1511198260) BUN (test code = 23 mg/dL 7-23 4902841738) GLUCOSE (test code = 185 mg/dL 70-110 H 9887383748) CREATININE (test code = 1.16 mg/dL 0.5-1.04 H 6251806030) TOTAL BILI (test code = 0.4 mg/dL 0.1-1.9 1491513318) CALCIUM (test code = 9.4 mg/dL 8.6-10.6 5924553569) T PROTEIN (test code = 7.3 g/dL 6.3-8.2 3771135927) ALBUMIN (test code = 4.4 g/dL 3.5-5 6121911856) ALK PHOS (test code = 112 U/L 34-122 9245997488) ALTv (test code = 47 U/L 5-35 H 1742-6) AST(SGOT) (test code = 47 U/L 13-40 H 4700088552) eGFR (test code = mL/min/1.73m2 4473997973) JENNIFFER (test code = JENNIFFER) Association of [...] tests). Lab Interpretation Abnormal (test code = 95756-8) [facility] 06:14:48 Test Item Value Reference Range Interpretation Comments MAGNESIUM (test code = 8913084670) 2.5 mg/dL 1.7-2.4 H Lab Interpretation (test code = Abnormal 77386-5) [facility] WITH [id number] 05:53:47 Test Item Value Reference Range Interpretation Comments WBC (test code = See_Comment [Automated 9990-2) message] The sy stem which generated this result transmitted reference range : 4.30 - 11.10 10*3/?L. The reference range was not used to interpret this result as normal/abnormal . RBC (test code = See_Comment [Automated 703-8) message] The sy stem which generated this [...] RDW-SD (test code = 47.2 fL 39-49.9 64142-7) RDW-CV (test code = 14.8 % 12-15.5 788-0) PLT (test code = See_Comment [Automated 777-3) message] The sy stem which generated this result transmitted reference range : 166 - 358 10*3/ ?L. The reference r josselyn was not used to interpret this result as normal/abnormal . MPV (test code = 9.1 fL 9.5-12.9 L 54710-1) NRBC/100 WBC (test See_Comment [Automat ed code = 5189077520) message] The system which generated this result transmitted reference range : 0.0 - 10.0 /100 WBCs. The refer ence range was not u sed to interpret th is result as normal/abnormal . NRBC x10^3 (test code See_Comment [Auto mated = 2772668896) message] The s ystem which generated this result transmitted reference range : 10*3/?L. The reference range was not used to interpret this result as normal/abnormal . GRAN MAT (NEUT) % 82.2 % (test code = 770-8) IMM GRAN % (test code 0.40 % = 6113941831) LYMPH % (test code = 10.2 % 736-9) MONO % (test code = 4.4 % 5905-5) EOS % (test code = 1.8 % 713-8) BASO % (test code = 1.0 % 706-2) GRAN MAT x10^3(ANC) 6.37 10*3/uL 1.88-7.09 (test code = 9177059009) IMM GRAN x10^3 (test 0.03 10*3/uL 0-0.06 code = 5494796135) LYMPH x10^3 (test code 0.79 10*3/uL 1.32-3.29 L = 731-0) MONO x10^3 (test code 0.34 10*3/uL 0.33-0.92 = 742-7) EOS x10^3 (test code = 0.14 10*3/uL 0.03-0.39 711-2) BASO x10^3 (test code 0.08 10*3/uL 0.01-0.07 H = 704-7) Lab Interpretation Abnormal (test code = 85761-7) [facility] [id number] 03:36:53 Test Item Value Reference Range Interpretation Comments NT-proBNP (test code 102 pg/mL See_Comment [Autom ated = 1347740221) message] The system which generated this result transmitted reference range : <=125. The reference range was not used to interpret this result as normal/abnormal . JENNIFFER (test code = JENNIFFER) Biotin has been reported to cause a negative bias, interpret results relative to patient's use of biotin. Lab Interpretation Normal (test code = 34751-3) [facility] [id number] 03:23:03 Test Item Value Reference Interpretation Comments Range TROPONIN I (test See_Comment [Automated code = 3578766379) message] The system which generated this result [...] biotin. Lab Interpretation Normal (test code = 82083-0) [facility] (75162)2022-04-29 03:11:22 Test Item Value Reference Range Interpretation Comments NA (test code = 139 mmol/L 135-145 5424592467) K (test code = 4.6 mmol/L 3.5-5 9859670054) CL (test code = 94 mmol/L 98-108 L 8971682114) CO2 TOTAL (test code = 36 mmol/L 23-31 H 8372950945) AGAP (test code = 2-16 5818801605) BUN (test code = 23 mg/dL 7-23 8715869782) GLUCOSE (test code = 271 mg/dL 70-110 H 4299371859) CREATININE (test code = 0.91 mg/dL 0.5-1.04 6967129815) TOTAL BILI (test code = 0.5 mg/dL 0.1-1.4 2478732436) CALCIUM (test code = 9.3 mg/dL 8.6-10.6 6567684426) T PROTEIN (test code = 7.3 g/dL 6.3-8.2 2750094361) ALBUMIN (test code = 4.5 g/dL 3.5-5 6602992484) ALK PHOS (test code = 137 U/L 34-122 H 0741831043) ALTv (test code = 39 U/L 5-35 H 1742-6) AST(SGOT) (test code = 34 U/L 13-40 3814235711) eGFR (test code = mL/min/1.73m2 9697101348) JENNIFFER (test code = JENNIFFER) Association of [...] tests). Lab Interpretation Abnormal (test code = 41735-5) [facility] [id number] 03:09:40 Test Item Value Reference Range Interpretation Comments APTT Patient (test See_Comment [Automat ed code = 3173-2) message] The system which generated this result transmitted reference range : 23 - 38 Seconds . The reference range was not used to interpr et this result as normal/abnormal . JENNIFFER (test code = JENNIFFER) The [facility] patient population mean normal value for aPTT is 30 seconds. Lab Interpretation Normal (test code = 45783-4) [facility] [id number] 03:07:39 Test Item Value Reference Range Interpretation [...] tions. Lab Interpretation (test Normal code = 35142-1) [facility] [id number] 02:58:01 Test Item Value Reference Range Interpretation Comments WBC (test code = See_Comment H [Automated 8890-2) message] The system which generated this result transmit alden reference range : 4.30 - 11.10 10*3/?L. The reference range was not used to interpret this result as normal/abnormal . RBC (test code = See_Comment [Automated 629-8) message] The system which generated this result [...] RDW-SD (test code = 47.9 fL 39-49.9 83934-2) RDW-CV (test code = 14.8 % 12-15.5 788-0) PLT (test code = See_Comment [Automated 777-3) message] The system which generated this result transmit alden reference range : 166 - 358 10*3/ ?L. The reference range was not u sed to interpret th is result as normal/abnormal . MPV (test code = 9.0 fL 9.5-12.9 L 55826-7) NRBC/100 WBC (test See_Comment [Automat ed code = 1811138361) message] The system which generated this result transmit alden reference range : 0.0 - 10.0 /100 WBCs. The reference range was not used to interpret this result as normal/abnormal . NRBC x10^3 (test code See_Comment [Auto mated = 7629756961) message] The system which generated this result transmit alden reference range : 10*3/?L. The reference range was not used to interpret this result as normal/abnormal . GRAN MAT (NEUT) % 85.4 % (test code = 770-8) IMM GRAN % (test code 0.40 % = 0826186761) LYMPH % (test code = 7.5 % 736-9) MONO % (test code = 5.0 % 5905-5) EOS % (test code = 1.1 % 713-8) BASO % (test code = 0.6 % 706-2) GRAN MAT x10^3(ANC) 10.20 10*3/uL 1.88-7.09 H (test code = 9760297458) IMM GRAN x10^3 (test 0.05 10*3/uL 0-0.06 code = 4288006812) LYMPH x10^3 (test code 0.89 10*3/uL 1.32-3.29 L = 731-0) MONO x10^3 (test code 0.60 10*3/uL 0.33-0.92 = 742-7) EOS x10^3 (test code = 0.13 10*3/uL 0.03-0.39 711-2) BASO x10^3 (test code 0.07 10*3/uL 0.01-0.07 = 704-7) Lab Interpretation Abnormal (test code = 83111-1) [facility] GLUCOSE (AUTOMATED)2022-02-27 20:32:53 Test Item Value Reference Range Interpretation Comments POCT GLU (test code = 3400825826) 236 mg/dL 70-110 H Lab Interpretation (test code = Abnormal 98600-9) [facility] GLUCOSE (AUTOMATED)2022-02-27 16:22:28 Test Item Value Reference Range Interpretation Comments POCT GLU (test code = 7629831934) 242 mg/dL 70-110 H Lab Interpretation (test code = Abnormal 48947-7) [facility] GLUCOSE (AUTOMATED)2022-02-27 12:34:52 Test Item Value Reference Range Interpretation Comments POCT GLU (test code = 4687377967) 195 mg/dL 70-110 H Lab Interpretation (test code = Abnormal 74452-6) [facility] GLUCOSE (AUTOMATED)2022-02-26 21:43:40 Test Item Value Reference Range Interpretation Comments POCT GLU (test code = 6138831949) 315 mg/dL 70-110 H Lab Interpretation (test code = Abnormal 60440-6) [facility] GLUCOSE (AUTOMATED)2022-02-26 17:51:09 Test Item Value Reference Range Interpretation Comments POCT GLU (test code = 9953414554) 316 mg/dL 70-110 H Lab Interpretation (test code = Abnormal 32332-4) [facility] GLUCOSE (AUTOMATED)2022-02-26 14:27:56 Test Item Value Reference Range Interpretation Comments POCT GLU (test code = 0455618832) 226 mg/dL 70-110 H Lab Interpretation (test code = Abnormal 70551-6) [facility] [id number] 10:01:38 Test Item Value Reference Range Interpretation Comments Blood Culture-Aerobic No organisms No growth Previo us (test code = 10706-6) isolated prelim inary verified result was Culture [...] Culture-Anaerobic isolated preliminar y (test code = 34349-4) verifi ed result was Culture In Progress [...] CDT Lab Interpretation Normal (test code = 58517-1) [facility] GLUCOSE (AUTOMATED)2022-02-26 01:34:43 Test Item Value Reference Range Interpretation Comments POCT GLU (test code = 1394000963) 253 mg/dL 70-110 H Lab Interpretation (test code = Abnormal 48422-7) [facility] GLUCOSE (AUTOMATED)2022-02-25 20:41:07 Test Item Value Reference Range Interpretation Comments POCT GLU (test code = 9686393725) 260 mg/dL 70-110 H Lab Interpretation (test code = Abnormal 37233-1) [facility] GLUCOSE (AUTOMATED)2022-02-25 16:40:46 Test Item Value Reference Range Interpretation Comments POCT GLU (test code = 1271967970) 245 mg/dL 70-110 H Lab Interpretation (test code = Abnormal 93292-9) [facility] Arterial Blood Gas.2022-02-25 14:15:07 Test Item Value Reference Range Interpretation Comments PH (test code = 2) 7.35-7.45 H PCO2 (test code = See_Comment H [Automate d message] 0441459825) The system [employer] generated this result transmitted ref erence range: 35 - 45 mmHg. The reference r josselyn was not used to interpret this result as normal/abnor mal. PO2 (test code = See_Comment [Automated message] 0399985938) The system [employer] generated this result transmitted ref erence range: 80 - 100 mmHg. The reference r josselyn was not used to interpret this result as normal/abnor mal. HCO3 (test code = See_Comment H [Automate d message] 5138945267) The system [employer] generated this result transmitted ref erence range: 22 - 26 mEq/L. The reference r josselyn was not used to interpret this result as normal/abnor mal. BE (test code = See_Comment H [Automated message] 4560363947) The system [employer] generated this result transmitted ref erence range: -3.0 - 3 .0 mEq/L. The refe rence range was not u sed to interpret this result as normal/abnor mal. Lab Interpretation (test Abnormal code = 20855-0) [facility] GLUCOSE (AUTOMATED)2022-02-25 12:53:11 Test Item Value Reference Range Interpretation Comments POCT GLU (test code = 1381430673) 194 mg/dL 70-110 H Lab Interpretation (test code = Abnormal 54875-3) [facility] METABOLIC PANEL (NA, K, CL, CO2, GLUCOSE, BUN, CREATININE, CA)2022-02-25 12:18:22 Test Item Value Reference Range Interpretation Comments NA (test code = 135 mmol/L 135-145 8050398451) K (test code = 3.5 mmol/L 3.5-5 1100687905) CL (test code = 97 mmol/L 98-108 L 1612490901) CO2 TOTAL (test code = 37 mmol/L 23-31 H 4072173142) AGAP (test code = 2-16 L 1434245598) BUN (test code = 36 mg/dL 7-23 H 7380929221) GLUCOSE (test code = 172 mg/dL 70-110 H 9419555792) CREATININE (test code = 1.57 mg/dL 0.5-1.04 H 8791257358) CALCIUM (test code = 9.0 mg/dL 8.6-10.6 9795043354) eGFR (test code = mL/min/1.73m2 0848802019) JENNIFFER (test code = JENNIFFER) Association of [...] tests). Lab Interpretation Abnormal (test code = 37817-3) [facility] 12:18:22 Test Item Value Reference Range Interpretation Comments MAGNESIUM (test code = 9004229431) 1.7 mg/dL 1.7-2.4 Lab Interpretation (test code = Normal 65719-4) [facility] 12:18:22 Test Item Value Reference Range Interpretation Comments PHOSPHORUS (test code = 8745727936) 2.7 mg/dL 2.5-5 Lab Interpretation (test code = Normal 23268-2) [facility] GLUCOSE (AUTOMATED)2022-02-25 01:26:19 Test Item Value Reference Range Interpretation Comments POCT GLU (test code = 6502963031) 180 mg/dL 70-110 H Lab Interpretation (test code = Abnormal 48941-5) [facility] GLUCOSE (AUTOMATED)2022-02-24 20:51:23 Test Item Value Reference Range Interpretation Comments POCT GLU (test code = 3108108702) 206 mg/dL 70-110 H Lab Interpretation (test code = Abnormal 81752-3) [facility] Arterial Blood Gas.2022-02-24 17:04:22 Test Item Value Reference Range Interpretation Comments PH (test code = 2) 7.35-7.45 H PCO2 (test code = See_Comment [Automate d message] 4490675016) The system [employer] generated this result transmitted ref erence range: 35 - 45 mmHg. The reference r josselyn was not used to interpret this result as normal/abnor mal. PO2 (test code = See_Comment H [Automated message] 6631218275) The system [employer] generated this result transmitted ref erence range: 80 - 100 mmHg. The reference r josselyn was not used to interpret this result as normal/abnor mal. HCO3 (test code = See_Comment H [Automate d message] 7302932201) The system [employer] generated this result transmitted ref erence range: 22 - 26 mEq/L. The reference r josselyn was not used to interpret this result as normal/abnor mal. BE (test code = See_Comment H [Automated message] 8516780527) The system [employer] generated this result transmitted ref erence range: -3.0 - 3 .0 mEq/L. The refe rence range was not u sed to interpret this result as normal/abnor mal. Lab Interpretation (test Abnormal code = 03690-7) [facility]-24 17:00:46 Test Item Value Reference Range Interpretation Comments POCT GLU (test code = 4498351379) 230 mg/dL 70-110 H Lab Interpretation (test code = Abnormal 83449-5) [id number] 13:31:58 Test Item Value Reference Interpretation Comments Range TROPONIN I (test 0.002 ng/mL See_Comment [Automated code = 6164431398) message] The system which generated this result [...] biotin. Lab Interpretation Normal (test code = 55967-9) [facility] 13:24:56 Test Item Value Reference Range Interpretation Comments POCT GLU (test code = 2270518197) 252 mg/dL 70-110 H Lab Interpretation (test code = Abnormal 01900-1) [facility] (NA, K, CL, CO2, GLUCOSE, BUN, CREATININE, CA)2022-02-24 13:21:38 Test Item Value Reference Range Interpretation Comments NA (test code = 138 mmol/L 135-145 4849592955) K (test code = 4.3 mmol/L 3.5-5 6205076216) CL (test code = 94 mmol/L 98-108 L 3910254897) CO2 TOTAL (test code = 39 mmol/L 23-31 H 9430589505) AGAP (test code = 2-16 9761559379) BUN (test code = 31 mg/dL 7-23 H 1443059228) GLUCOSE (test code = 237 mg/dL 70-110 H 5853364263) CREATININE (test code = 1.46 mg/dL 0.5-1.04 H 6243031933) CALCIUM (test code = 9.2 mg/dL 8.6-10.6 9055113804) eGFR (test code = mL/min/1.73m2 2136457798) JENNIFFER (test code = JENNIFFER) Association of [...] tests). Lab Interpretation Abnormal (test code = 65201-6) [facility] [id number] 03:18:42 Test Item Value Reference Range Interpretation Comments LACTIC ACID (test code = 0.92 mmol/L 0.5-2.2 1371515845) Lab Interpretation (test code = Normal 20213-0) [facility] GLUCOSE (AUTOMATED)2022-02-24 01:21:36 Test Item Value Reference Range Interpretation Comments POCT GLU (test code = 8768064586) 200 mg/dL 70-110 H Lab Interpretation (test code = Abnormal 88634-5) [facility] GLUCOSE (AUTOMATED)2022-02-23 22:45:38 Test Item Value Reference Range Interpretation Comments POCT GLU (test code = 9451889305) 246 mg/dL 70-110 H Lab Interpretation (test code = Abnormal 78377-6) [facility] GLUCOSE (AUTOMATED)2022-02-23 21:47:33 Test Item Value Reference Range Interpretation Comments POCT GLU (test code = 261 mg/dL 70-110 H Notifi ed Provider [id number]) Lab Interpretation (test Abnormal code = 44341-3) [facility] + Lactic [id number] 18:40:55 Test Item Value Reference Range Interpretation Comments PH (test code = 2) 7.35-7.45 PCO2 (test code = See_Comment H [Automate d 7316139269) message] The sy stem which generated this result transmitted reference range : 35 - 45 mmHg. The reference range was not used to interpret this result as normal/abnormal . PO2 (test code = See_Comment H [Automated 9477562647) message] The sy stem which generated this result transmitted reference range : 80 - 100 mmHg. The reference range was not used to interpret this result as normal/abnormal . HCO3 (test code = See_Comment H [Automate d 4658940423) message] The sy stem which generated this result transmitted reference range : 22 - 26 mEq/L. The reference range was not used to interpret this result as normal/abnormal . BE (test code = See_Comment H [Automated 6953360104) message] The sy stem which generated this result transmitted reference range : -3.0 - 3.0 mEq/ L. The reference r josselyn was not used to interpret this result as normal/abnormal . THB (test code = 10.1 g/dL 12-16 L 8002830742) %O2HB (test code = 98.2 % 94-99 4503189470) %COHB ART (test code = 0.0 % 0-1.5 7482104539) %METHB ART (test code = 0.2 % 0.4-1.5 L 3514637597) VOL%O2 ART (test code = 14.2 % 15-23 L 0650780167) NA (test code = 142 mmol/L 135-145 4769561838) K+ (test code = 3.9 mmol/L 3.5-5 2914205371) AC CA IONZ (test code = 4.60 mg/dL 4.5-5.3 3958527630) GLUCOSE (test code = 201 mg/dL 70-110 H 2308127711) LACTIC ACID (test code 0.99 mmol/L 0.5-2.2 = 1684777561) Lab Interpretation Abnormal (test code = 88604-4) [facility] 17:20:26 Test Item Value Reference Range Interpretation Comments POCT GLU (test code = 222 mg/dL 70-110 H Notifi ed Provider [id number]) Lab Interpretation (test Abnormal code = 67037-5) [facility] GLUCOSE (AUTOMATED)2022-02-23 13:23:49 Test Item Value Reference Range Interpretation Comments POCT GLU (test code = 188 mg/dL 70-110 H Notifi ed Provider [id number]) Lab Interpretation (test Abnormal code = 60196-7) [facility] GLUCOSE (AUTOMATED)2022-02-22 21:57:50 Test Item Value Reference Range Interpretation Comments POCT GLU (test code = 9728392485) 240 mg/dL 70-110 H Lab Interpretation (test code = Abnormal 67429-4) [facility] GLUCOSE (AUTOMATED)2022-02-22 18:33:41 Test Item Value Reference Range Interpretation Comments POCT GLU (test code = 5609131058) 247 mg/dL 70-110 H Lab Interpretation (test code = Abnormal 05664-9) [facility] [id number] 15:54:13 Test Item Value Reference Range Interpretation Comments URINE CULTURE (test No aerobic growth (< code = 630-4) 1000 CFU/mL) [facility] (NA, K, CL, CO2, GLUCOSE, BUN, CREATININE, CA)2022-02-22 13:03:42 Test Item Value Reference Range Interpretation Comments NA (test code = 140 mmol/L 135-145 7210838224) K (test code = 3.7 mmol/L 3.5-5 5336670703) CL (test code = 95 mmol/L 98-108 L 7511441184) CO2 TOTAL (test code = 40 mmol/L 23-31 H 8263291247) AGAP (test code = 2-16 9900036974) BUN (test code = 19 mg/dL 7-23 4571888068) GLUCOSE (test code = 167 mg/dL 70-110 H 0379892939) CREATININE (test code = 0.85 mg/dL 0.5-1.04 0439720041) CALCIUM (test code = 9.0 mg/dL 8.6-10.6 2457042751) eGFR (test code = mL/min/1.73m2 9747861254) JENNIFFER (test code = JENNIFFER) Association of [...] tests). Lab Interpretation Abnormal (test code = 52360-1) [facility] 12:14:43 Test Item Value Reference Range Interpretation Comments MAGNESIUM (test code = 6599825524) 2.3 mg/dL 1.7-2.4 Lab Interpretation (test code = Normal 20298-0) [facility] WITH [id number] 11:52:02 Test Item Value Reference Range Interpretation Comments WBC (test code = See_Comment [Automated 6190-2) message] The sy stem which generated this [...] RDW-SD (test code = 48.7 fL 39-49.9 78700-9) RDW-CV (test code = 15.2 % 12-15.5 788-0) PLT (test code = See_Comment [Automated 777-3) message] The sy stem which generated this result transmitted reference range : 166 - 358 10*3/ ?L. The reference r josselyn was not used to interpret this result as normal/abnormal . MPV (test code = 8.9 fL 9.5-12.9 L 31020-0) NRBC/100 WBC (test See_Comment [Automat ed code = 4757441853) message] The system which generated this result transmitted reference range : 0.0 - 10.0 /100 WBCs. The refer ence range was not u sed to interpret th is result as normal/abnormal . NRBC x10^3 (test code See_Comment [Auto mated = 7885994045) message] The s ystem which generated this result transmitted reference range : 10*3/?L. The reference range was not used to interpret this result as normal/abnormal . GRAN MAT (NEUT) % 70.5 % (test code = 770-8) IMM GRAN % (test code 0.70 % = 2040891467) LYMPH % (test code = 18.8 % 736-9) MONO % (test code = 7.9 % 5905-5) EOS % (test code = 1.2 % 713-8) BASO % (test code = 0.9 % 706-2) GRAN MAT x10^3(ANC) 4.04 10*3/uL 1.88-7.09 (test code = 3710775250) IMM GRAN x10^3 (test 0.04 10*3/uL 0-0.06 code = 8505692796) LYMPH x10^3 (test code 1.08 10*3/uL 1.32-3.29 L = 731-0) MONO x10^3 (test code 0.45 10*3/uL 0.33-0.92 = 742-7) EOS x10^3 (test code = 0.07 10*3/uL 0.03-0.39 711-2) BASO x10^3 (test code 0.05 10*3/uL 0.01-0.07 = 704-7) Lab Interpretation Abnormal (test code = 08109-9) [facility] GLUCOSE (AUTOMATED)2022-02-22 01:40:53 Test Item Value Reference Range Interpretation Comments POCT GLU (test code = 5599913792) 246 mg/dL 70-110 H Lab Interpretation (test code = Abnormal 64699-6) [facility] GLUCOSE (AUTOMATED)2022-02-21 22:04:44 Test Item Value Reference Range Interpretation Comments POCT GLU (test code = 2176552949) 293 mg/dL 70-110 H Lab Interpretation (test code = Abnormal 14568-0) [facility] WITHOUT [id number] 16:03:44 Test Item Value Reference Range Interpretation Comments WBC (test code = 6690-2) See_Comment [A utomated message] The system [employer] generated this result transmit alden reference range : 4.30 - 11.10 10*3/?L. The reference range was not used to interpret this result as normal/abnormal . RBC (test code = 789-8) See_Comment L [Au tomated message] The system [employer] generated this result transmit alden reference range [...] 777-3) See_Comment [Au tomated message] The system [employer] generated this result transmit alden reference range : 166 - 358 10*3/?L. The reference range was not used to interpret this result as normal/abnormal . MPV (test code = 9.2 fL 9.5-12.9 L 19402-8) RDW-CV (test code = 15.7 % 12-15.5 H 788-0) RDW-SD (test code = 50.9 fL 39-49.9 H 06705-4) NRBC x10^3 (test code = See_Comment [Au tomated message] 6202034901) The system [employer] generated this result transmit alden reference range : 10*3/?L. The reference range was not used to interpret this result as normal/abnormal . NRBC/100 WBC (test code See_Comment [Au tomated message] = 2339529479) The system [employer] generated this result transmit alden reference range : 0.0 - 10.0 /100 WBC s. The reference r josselyn was not used to interpret this result as normal/abnormal . IPF % (test code = 1574566422) Lab Interpretation (test Abnormal code = 84025-1) [facility] 14:46:08 Test Item Value Reference Range Interpretation Comments POCT GLU (test code = 9406696524) 157 mg/dL 70-110 H Lab Interpretation (test code = Abnormal 90989-9) [facility] METABOLIC PANEL (NA, K, CL, CO2, GLUCOSE, BUN, CREATININE, CA)2022-02-21 09:05:34 Test Item Value Reference Range Interpretation Comments NA (test code = 143 mmol/L 135-145 3872646532) K (test code = 3.8 mmol/L 3.5-5 2453857791) CL (test code = 99 mmol/L 98-108 7348319475) CO2 TOTAL (test code = 37 mmol/L 23-31 H 3082696077) AGAP (test code = 2-16 7147954882) BUN (test code = 17 mg/dL 7-23 6576493661) GLUCOSE (test code = 140 mg/dL 70-110 H 4003154274) CREATININE (test code = 0.85 mg/dL 0.5-1.04 0881074308) CALCIUM (test code = 8.9 mg/dL 8.6-10.6 6571206183) eGFR (test code = mL/min/1.73m2 1651398319) JENNIFFER (test code = JENNIFFER) Association of [...] tests). Lab Interpretation Abnormal (test code = 91704-7) [facility] 08:53:13 Test Item Value Reference Range Interpretation Comments MAGNESIUM (test code = 7171396098) 2.3 mg/dL 1.7-2.4 Lab Interpretation (test code = Normal 20482-6) [facility] WITH [id number] 08:13:50 Test Item Value Reference Range Interpretation [...] (test code = 51.5 fL 39-49.9 H 45882-3) RDW-CV (test code = 15.5 % 12-15.5 788-0) PLT (test code = See_Comment L [Automated 777-3) message] The sy stem which generated this result transmitted reference range : 166 - 358 10*3/ ?L. The reference r josselyn was not used to interpret this result as normal/abnormal . MPV (test code = 9.0 fL 9.5-12.9 L 30873-3) NRBC/100 WBC (test See_Comment [Automat ed code = 6909335098) message] The system which generated this result transmitted reference range : 0.0 - 10.0 /100 WBCs. The refer ence range was not u sed to interpret th is result as normal/abnormal . NRBC x10^3 (test code See_Comment [Auto mated = 3473489505) message] The s ystem which generated this result transmitted reference range : 10*3/?L. The reference range was not used to interpret this result as normal/abnormal . GRAN MAT (NEUT) % 68.2 % (test code = 770-8) IMM GRAN % (test code 0.60 % = 0352890075) LYMPH % (test code = 20.0 % 736-9) MONO % (test code = 8.1 % 5905-5) EOS % (test code = 2.0 % 713-8) BASO % (test code = 1.1 % 706-2) GRAN MAT x10^3(ANC) 3.72 10*3/uL 1.88-7.09 (test code = 5479555189) IMM GRAN x10^3 (test 0.03 10*3/uL 0-0.06 code = 1806984870) LYMPH x10^3 (test code 1.09 10*3/uL 1.32-3.29 L = 731-0) MONO x10^3 (test code 0.44 10*3/uL 0.33-0.92 = 742-7) EOS x10^3 (test code = 0.11 10*3/uL 0.03-0.39 711-2) BASO x10^3 (test code 0.06 10*3/uL 0.01-0.07 = 704-7) Lab Interpretation Abnormal (test code = 60795-1) [facility] 02:41:53 Test Item Value Reference Range Interpretation Comments POCT GLU (test code = 2070764028) 175 mg/dL 70-110 H Lab Interpretation (test code = Abnormal 78547-5) [facility] Arterial Blood Gas.2022-02-20 23:27:23 Test Item Value Reference Range Interpretation Comments PH (test code = 2) 7.35-7.45 L PCO2 (test code = See_Comment H [Automate d message] 4566340245) The system [employer] generated this result transmitted ref erence range: 35 - 45 mmHg. The reference r josselyn was not used to interpret this result as normal/abnor mal. PO2 (test code = See_Comment H [Automated message] 4532888990) The system [employer] generated this result transmitted ref erence range: 80 - 100 mmHg. The reference r josselyn was not used to interpret this result as normal/abnor mal. HCO3 (test code = See_Comment H [Automate d message] 5249357545) The system whic h generated this result transmitted ref erence range: 22 - 26 mEq/L. The reference r josselyn was not used to interpret this result as normal/abnor mal. BE (test code = See_Comment H [Automated message] 9162094172) The system [employer] h generated this result transmitted ref erence range: -3.0 - 3 .0 mEq/L. The refe rence range was not u sed to interpret this result as normal/abnor mal. Lab Interpretation (test Abnormal code = 66258-9) [facility] WITH [id number] 20:32:34 Test Item Value Reference Range Interpretation [...] (test code = 51.8 fL 39-49.9 H 71386-4) RDW-CV (test code = 15.7 % 12-15.5 H 788-0) PLT (test code = See_Comment [Automated 777-3) message] The sy stem which generated this result transmitted reference range : 166 - 358 10*3/ ?L. The reference r josselyn was not used to interpret this result as normal/abnormal . MPV (test code = 8.9 fL 9.5-12.9 L 29507-5) NRBC/100 WBC (test See_Comment [Automat ed code = 4019169346) message] The system which generated this result transmitted reference range : 0.0 - 10.0 /100 WBCs. The refer ence range was not u sed to interpret th is result as normal/abnormal . NRBC x10^3 (test code See_Comment [Auto mated = 5071540164) message] The s ystem which generated this result transmitted reference range : 10*3/?L. The reference range was not used to interpret this result as normal/abnormal . GRAN MAT (NEUT) % 72.1 % (test code = 770-8) IMM GRAN % (test code 1.20 % = 4675023587) LYMPH % (test code = 16.2 % 736-9) MONO % (test code = 7.1 % 5905-5) EOS % (test code = 2.3 % 713-8) BASO % (test code = 1.1 % 706-2) GRAN MAT x10^3(ANC) 7.28 10*3/uL 1.88-7.09 H (test code = 7051067376) IMM GRAN x10^3 (test 0.12 10*3/uL 0-0.06 H code = 3017913069) LYMPH x10^3 (test code 1.63 10*3/uL 1.32-3.29 = 731-0) MONO x10^3 (test code 0.72 10*3/uL 0.33-0.92 = 742-7) EOS x10^3 (test code = 0.23 10*3/uL 0.03-0.39 711-2) BASO x10^3 (test code 0.11 10*3/uL 0.01-0.07 H = 704-7) Lab Interpretation Abnormal (test code = 54876-6) [facility] GLUCOSE (AUTOMATED)2022-02-17 21:46:17 Test Item Value Reference Range Interpretation Comments POCT GLU (test code = 7218580794) 181 mg/dL 70-110 H Lab Interpretation (test code = Abnormal 86718-4) [facility] GLUCOSE (AUTOMATED)2022-02-17 17:09:48 Test Item Value Reference Range Interpretation Comments POCT GLU (test code = 6056843822) 191 mg/dL 70-110 H Lab Interpretation (test code = Abnormal 18250-3) [facility] GLUCOSE (AUTOMATED)2022-02-17 13:07:24 Test Item Value Reference Range Interpretation Comments POCT GLU (test code = 3559774652) 185 mg/dL 70-110 H Lab Interpretation (test code = Abnormal 65431-2) [facility] Culture - Peripheral # [id number] 02:02:05 Test Item Value Reference Range Interpretation Comments Blood Culture-Aerobic No organisms No growth Previo us (test code = 89493-1) isolated prelim inary verified result was Culture [...] Culture-Anaerobic isolated preliminar y (test code = 02814-2) verifi ed result was Culture In Progress [...] CDT Lab Interpretation Normal (test code = 91773-4) [facility] GLUCOSE (AUTOMATED)2022-02-17 00:50:32 Test Item Value Reference Range Interpretation Comments POCT GLU (test code = 8194920949) 152 mg/dL 70-110 H Lab Interpretation (test code = Abnormal 30627-8) [facility] GLUCOSE (AUTOMATED)2022-02-16 21:47:16 Test Item Value Reference Range Interpretation Comments POCT GLU (test code = 0240874499) 183 mg/dL 70-110 H Lab Interpretation (test code = Abnormal 07824-1) [facility] GLUCOSE (AUTOMATED)2022-02-16 17:08:26 Test Item Value Reference Range Interpretation Comments POCT GLU (test code = 5218553218) 160 mg/dL 70-110 H Lab Interpretation (test code = Abnormal 13120-9) [facility] GLUCOSE (AUTOMATED)2022-02-16 13:06:01 Test Item Value Reference Range Interpretation Comments POCT GLU (test code = 4957262213) 140 mg/dL 70-110 H Lab Interpretation (test code = Abnormal 92254-0) [facility] GLUCOSE (AUTOMATED)2022-02-16 08:33:41 Test Item Value Reference Range Interpretation Comments POCT GLU (test code = 1561103175) 193 mg/dL 70-110 H Lab Interpretation (test code = Abnormal 41808-0) [facility] GLUCOSE (AUTOMATED)2022-02-16 04:30:38 Test Item Value Reference Range Interpretation Comments POCT GLU (test code = 4156682962) 167 mg/dL 70-110 H Lab Interpretation (test code = Abnormal 26862-2) [facility] GLUCOSE (AUTOMATED)2022-02-16 00:40:50 Test Item Value Reference Range Interpretation Comments POCT GLU (test code = 3924566596) 190 mg/dL 70-110 H Lab Interpretation (test code = Abnormal 68492-8) [facility] GLUCOSE (AUTOMATED)2022-02-15 21:26:07 Test Item Value Reference Range Interpretation Comments POCT GLU (test code = 1726103466) 189 mg/dL 70-110 H Lab Interpretation (test code = Abnormal 52144-9) [facility] GLUCOSE (AUTOMATED)2022-02-15 17:00:52 Test Item Value Reference Range Interpretation Comments POCT GLU (test code = 0981561401) 213 mg/dL 70-110 H Lab Interpretation (test code = Abnormal 62902-7) [facility] GLUCOSE (AUTOMATED)2022-02-15 12:48:04 Test Item Value Reference Range Interpretation Comments POCT GLU (test code = 9493753921) 145 mg/dL 70-110 H Lab Interpretation (test code = Abnormal 43034-9) [facility]. METABOLIC PANEL (19763)2022-02-15 08:28:08 Test Item Value Reference Range Interpretation Comments NA (test code = 140 mmol/L 135-145 3221463068) K (test code = 4.0 mmol/L 3.5-5 7837554983) CL (test code = 100 mmol/L 98-108 7061844742) CO2 TOTAL (test code = 35 mmol/L 23-31 H 9659776758) AGAP (test code = 2-16 2242355356) BUN (test code = 12 mg/dL 7-23 1063227469) GLUCOSE (test code = 161 mg/dL 70-110 H 2056876832) CREATININE (test code = 1.20 mg/dL 0.5-1.04 H 4349359983) TOTAL BILI (test code = 0.6 mg/dL 0.1-1.8 9793121164) CALCIUM (test code = 8.7 mg/dL 8.6-10.6 7408110330) T PROTEIN (test code = 6.8 g/dL 6.3-8.2 4847766486) ALBUMIN (test code = 3.7 g/dL 3.5-5 3226888662) ALK PHOS (test code = 121 U/L 34-122 0691588329) ALTv (test code = 35 U/L 5-35 1742-6) AST(SGOT) (test code = 34 U/L 13-40 9855510930) eGFR (test code = mL/min/1.73m2 8166711258) JENNIFFER (test code = JENNIFFER) Association of [...] tests). Lab Interpretation Abnormal (test code = 27168-2) [facility]:08 Test Item Value Reference Range Interpretation Comments MAGNESIUM (test code = 1362130621) 2.4 mg/dL 1.7-2.4 Lab Interpretation (test code = Normal 36609-3) [id number] 08:07:28 Test Item Value Reference Range Interpretation Comments WBC (test code = 6690-2) See_Comment [A utomated message] The system [employer] generated this result transmit alden reference range : 4.30 - 11.10 10*3/?L. The reference range was not used to interpret this result as normal/abnormal . RBC (test code = 789-8) See_Comment L [Au tomated message] The system [employer] generated this result transmit alden reference range [...] 777-3) See_Comment [Au tomated message] The system [employer] generated this result transmit alden reference range : 166 - 358 10*3/?L. The reference range was not used to interpret this result as normal/abnormal . MPV (test code = 8.9 fL 9.5-12.9 L 47432-5) RDW-CV (test code = 16.2 % 12-15.5 H 788-0) RDW-SD (test code = 52.6 fL 39-49.9 H 04110-6) NRBC x10^3 (test code = See_Comment [Au tomated message] 0381747915) The system [employer] generated this result transmit alden reference range : 10*3/?L. The reference range was not used to interpret this result as normal/abnormal . NRBC/100 WBC (test code See_Comment [Au tomated message] = 7600817703) The system [employer] generated this result transmit alden reference range : 0.0 - 10.0 /100 WBC s. The reference r josselyn was not used to interpret this result as normal/abnormal . IPF % (test code = 6402109348) Lab Interpretation (test Abnormal code = 28849-3) [facility] GLUCOSE (AUTOMATED)2022-02-15 08:03:53 Test Item Value Reference Range Interpretation Comments POCT GLU (test code = 5109769131) 179 mg/dL 70-110 H Lab Interpretation (test code = Abnormal 48034-2) [facility] GLUCOSE (AUTOMATED)2022-02-15 04:16:20 Test Item Value Reference Range Interpretation Comments POCT GLU (test code = 2789710631) 215 mg/dL 70-110 H Lab Interpretation (test code = Abnormal 98303-7) [facility] GLUCOSE (AUTOMATED)2022-02-15 00:50:30 Test Item Value Reference Range Interpretation Comments POCT GLU (test code = 9713715518) 229 mg/dL 70-110 H Lab Interpretation (test code = Abnormal 27173-5) [facility] GLUCOSE (AUTOMATED)2022-02-14 21:23:56 Test Item Value Reference Range Interpretation Comments POCT GLU (test code = 7280614539) 214 mg/dL 70-110 H Lab Interpretation (test code = Abnormal 36078-0) [facility] GLUCOSE (AUTOMATED)2022-02-14 19:38:54 Test Item Value Reference Range Interpretation Comments POCT GLU (test code = 2010665360) 236 mg/dL 70-110 H Lab Interpretation (test code = Abnormal 61717-3) [facility] GLUCOSE (AUTOMATED)2022-02-14 16:28:53 Test Item Value Reference Range Interpretation Comments POCT GLU (test code = 6692102673) 245 mg/dL 70-110 H Lab Interpretation (test code = Abnormal 01020-6) [facility] GLUCOSE (AUTOMATED)2022-02-14 14:17:55 Test Item Value Reference Range Interpretation Comments POCT GLU (test code = 6896687511) 259 mg/dL 70-110 H Lab Interpretation (test code = Abnormal 51849-2) [facility]. METABOLIC PANEL (14352)2022-02-14 10:33:43 Test Item Value Reference Range Interpretation Comments NA (test code = 139 mmol/L 135-145 3729098787) K (test code = 3.9 mmol/L 3.5-5 6589239894) CL (test code = 102 mmol/L 98-108 2148773132) CO2 TOTAL (test code = 33 mmol/L 23-31 H 2608530758) AGAP (test code = 2-16 9066312333) BUN (test code = 11 mg/dL 7-23 6550061605) GLUCOSE (test code = 162 mg/dL 70-110 H 5639710026) CREATININE (test code = 1.05 mg/dL 0.5-1.04 H 4337542362) TOTAL BILI (test code = 0.5 mg/dL 0.1-1.7 8409707651) CALCIUM (test code = 8.2 mg/dL 8.6-10.6 L 9064507597) T PROTEIN (test code = 6.1 g/dL 6.3-8.2 L 2696643341) ALBUMIN (test code = 3.2 g/dL 3.5-5 L 7224650037) ALK PHOS (test code = 113 U/L 34-122 4266107608) ALTv (test code = 37 U/L 5-35 H 1742-6) AST(SGOT) (test code = 29 U/L 13-40 3748227597) eGFR (test code = mL/min/1.73m2 1465099710) JENNIFFER (test code = JENNIFFER) Association of [...] tests). Lab Interpretation Abnormal (test code = 77374-5) [facility]33:43 Test Item Value Reference Range Interpretation Comments MAGNESIUM (test code = 8833114117) 2.2 mg/dL 1.7-2.4 Lab Interpretation (test code = Normal 09748-2) [facility] WITH [id number] 10:26:41 Test Item Value Reference Range Interpretation Comments WBC (test code = See_Comment [Automated 2690-2) message] The sy stem which generated this [...] (test code = 51.8 fL 39-49.9 H 22176-6) RDW-CV (test code = 16.1 % 12-15.5 H 788-0) PLT (test code = See_Comment [Automated 777-3) message] The sy stem which generated this result transmitted reference range : 166 - 358 10*3/ ?L. The reference r josselyn was not used to interpret this result as normal/abnormal . MPV (test code = 9.5 fL 9.5-12.9 47959-5) NRBC/100 WBC (test See_Comment [Automat ed code = 0542802046) message] The system which generated this result transmitted reference range : 0.0 - 10.0 /100 WBCs. The refer ence range was not u sed to interpret th is result as normal/abnormal . NRBC x10^3 (test code See_Comment [Auto mated = 6124741265) message] The s ystem which generated this result transmitted reference range : 10*3/?L. The reference range was not used to interpret this result as normal/abnormal . GRAN MAT (NEUT) % 69.7 % (test code = 770-8) IMM GRAN % (test code 0.80 % = 8349903550) LYMPH % (test code = 19.6 % 736-9) MONO % (test code = 6.9 % 5905-5) EOS % (test code = 2.2 % 713-8) BASO % (test code = 0.8 % 706-2) GRAN MAT x10^3(ANC) 3.44 10*3/uL 1.88-7.09 (test code = 2978933879) IMM GRAN x10^3 (test 0.04 10*3/uL 0-0.06 code = 3032953244) LYMPH x10^3 (test code 0.97 10*3/uL 1.32-3.29 L = 731-0) MONO x10^3 (test code 0.34 10*3/uL 0.33-0.92 = 742-7) EOS x10^3 (test code = 0.11 10*3/uL 0.03-0.39 711-2) BASO x10^3 (test code 0.04 10*3/uL 0.01-0.07 = 704-7) Lab Interpretation Abnormal (test code = 66824-1) [facility] GLUCOSE (AUTOMATED)2022-02-14 08:19:03 Test Item Value Reference Range Interpretation Comments POCT GLU (test code = 7355134118) 180 mg/dL 70-110 H Lab Interpretation (test code = Abnormal 92007-4) [facility] GLUCOSE (AUTOMATED)2022-02-14 04:28:25 Test Item Value Reference Range Interpretation Comments POCT GLU (test code = 2641934988) 199 mg/dL 70-110 H Lab Interpretation (test code = Abnormal 18096-1) [facility] GLUCOSE (AUTOMATED)2022-02-14 00:57:11 Test Item Value Reference Range Interpretation Comments POCT GLU (test code = 7728910606) 203 mg/dL 70-110 H Lab Interpretation (test code = Abnormal 76305-8) [facility] GLUCOSE (AUTOMATED)2022-02-13 22:30:21 Test Item Value Reference Range Interpretation Comments POCT GLU (test code = 7572028714) 202 mg/dL 70-110 H Lab Interpretation (test code = Abnormal 74906-5) [facility] GLUCOSE (AUTOMATED)2022-02-13 17:30:07 Test Item Value Reference Range Interpretation Comments POCT GLU (test code = 9939741519) 180 mg/dL 70-110 H Lab Interpretation (test code = Abnormal 01286-4) [facility] GLUCOSE (AUTOMATED)2022-02-13 15:53:46 Test Item Value Reference Range Interpretation Comments POCT GLU (test code = 4479671224) 170 mg/dL 70-110 H Lab Interpretation (test code = Abnormal 59327-6) [facility] Arterial Blood Gas.2022-02-13 14:26:25 Test Item Value Reference Range Interpretation Comments PH (test code = 2) 7.35-7.45 PCO2 (test code = See_Comment [Automate d message] 1218294285) The system [employer] generated this result transmitted ref erence range: 35 - 45 mmHg. The reference r josselyn was not used to interpret this result as normal/abnor mal. PO2 (test code = See_Comment L [Automated message] 7157517346) The system [employer] generated this result transmitted ref erence range: 80 - 100 mmHg. The reference r josselyn was not used to interpret this result as normal/abnor mal. HCO3 (test code = See_Comment H [Automate d message] 5593758922) The system [employer] generated this result transmitted ref erence range: 22 - 26 mEq/L. The reference r josselyn was not used to interpret this result as normal/abnor mal. BE (test code = See_Comment [Automated message] 7687699196) The system [employer] generated this result transmitted ref erence range: -3.0 - 3 .0 mEq/L. The refe rence range was not u sed to interpret this result as normal/abnor mal. Lab Interpretation (test Abnormal code = 83793-2) [facility] GLUCOSE (AUTOMATED)2022-02-13 14:09:26 Test Item Value Reference Range Interpretation Comments POCT GLU (test code = 1907384686) 145 mg/dL 70-110 H Lab Interpretation (test code = Abnormal 92066-7) [facility] GLUCOSE (AUTOMATED)2022-02-13 12:46:36 Test Item Value Reference Range Interpretation Comments POCT GLU (test code = 8431451720) 133 mg/dL 70-110 H Lab Interpretation (test code = Abnormal 65493-4) [facility] GLUCOSE (AUTOMATED)2022-02-13 11:45:25 Test Item Value Reference Range Interpretation Comments POCT GLU (test code = 4175653272) 127 mg/dL 70-110 H Lab Interpretation (test code = Abnormal 89499-0) [facility] METABOLIC PANEL (NA, K, CL, CO2, GLUCOSE, BUN, CREATININE, CA)2022-02-13 11:17:34 Test Item Value Reference Range Interpretation Comments NA (test code = 140 mmol/L 135-145 5925308464) K (test code = 3.8 mmol/L 3.5-5 4664294769) CL (test code = 103 mmol/L 98-108 7775213797) CO2 TOTAL (test code = 35 mmol/L 23-31 H 5802077955) AGAP (test code = 2-16 6031265231) BUN (test code = 14 mg/dL 7-23 7686723533) GLUCOSE (test code = 107 mg/dL 70-110 6242159630) CREATININE (test code = 0.94 mg/dL 0.5-1.04 9101079622) CALCIUM (test code = 8.2 mg/dL 8.6-10.6 L 4120694272) eGFR (test code = mL/min/1.73m2 3130331511) JENNIFFER (test code = JENNIFFER) Association of [...] tests). Lab Interpretation Abnormal (test code = 82109-1) [facility] Test Item Value Reference Range Interpretation Comments MAGNESIUM (test code = 2696989008) 2.1 mg/dL 1.7-2.4 Lab Interpretation (test code = Normal 66031-6) [facility] WITH [id number] 10:41:15 Test Item Value Reference Range Interpretation [...] (test code = 50.6 fL 39-49.9 H 06348-5) RDW-CV (test code = 15.6 % 12-15.5 H 788-0) PLT (test code = See_Comment [Automated 777-3) message] The sy stem which generated this result transmitted reference range : 166 - 358 10*3/ ?L. The reference r josselyn was not used to interpret this result as normal/abnormal . MPV (test code = 9.5 fL 9.5-12.9 12274-0) NRBC/100 WBC (test See_Comment [Automat ed code = 4914172979) message] The system which generated this result transmitted reference range : 0.0 - 10.0 /100 WBCs. The refer ence range was not u sed to interpret th is result as normal/abnormal . NRBC x10^3 (test code See_Comment [Auto mated = 6547951528) message] The s ystem which generated this result transmitted reference range : 10*3/?L. The reference range was not used to interpret this result as normal/abnormal . GRAN MAT (NEUT) % 74.0 % (test code = 770-8) IMM GRAN % (test code 0.50 % = 1415794718) LYMPH % (test code = 15.7 % 736-9) MONO % (test code = 7.4 % 5905-5) EOS % (test code = 1.7 % 713-8) BASO % (test code = 0.7 % 706-2) GRAN MAT x10^3(ANC) 4.37 10*3/uL 1.88-7.09 (test code = 3710943492) IMM GRAN x10^3 (test 0.03 10*3/uL 0-0.06 code = 9912807069) LYMPH x10^3 (test code 0.93 10*3/uL 1.32-3.29 L = 731-0) MONO x10^3 (test code 0.44 10*3/uL 0.33-0.92 = 742-7) EOS x10^3 (test code = 0.10 10*3/uL 0.03-0.39 711-2) BASO x10^3 (test code 0.04 10*3/uL 0.01-0.07 = 704-7) Lab Interpretation Abnormal (test code = 92662-9) [facility] GLUCOSE (AUTOMATED)2022-02-13 09:46:08 Test Item Value Reference Range Interpretation Comments POCT GLU (test code = 8107600128) 118 mg/dL 70-110 H Lab Interpretation (test code = Abnormal 26206-5) [facility] GLUCOSE (AUTOMATED)2022-02-13 08:49:55 Test Item Value Reference Range Interpretation Comments POCT GLU (test code = 7944045967) 122 mg/dL 70-110 H Lab Interpretation (test code = Abnormal 33059-5) [facility] 08:00:27 Test Item Value Reference Range Interpretation Comments POCT GLU (test code = 6274125632) 140 mg/dL 70-110 H Lab Interpretation (test code = Abnormal 42727-4) [facility] GLUCOSE (AUTOMATED)2022-02-13 07:07:01 Test Item Value Reference Range Interpretation Comments POCT GLU (test code = 3304872172) 155 mg/dL 70-110 H Lab Interpretation (test code = Abnormal 47061-2) [facility] GLUCOSE (AUTOMATED)2022-02-13 05:57:42 Test Item Value Reference Range Interpretation Comments POCT GLU (test code = 9698992606) 186 mg/dL 70-110 H Lab Interpretation (test code = Abnormal 37154-0) [facility] GLUCOSE (AUTOMATED)2022-02-13 03:40:10 Test Item Value Reference Range Interpretation Comments POCT GLU (test code = 2586075535) 245 mg/dL 70-110 H Lab Interpretation (test code = Abnormal 20117-1) [facility] GLUCOSE (AUTOMATED)2022-02-13 03:35:28 Test Item Value Reference Range Interpretation Comments POCT GLU (test code = 0298280272) 239 mg/dL 70-110 H Lab Interpretation (test code = Abnormal 96376-2) [facility] GLUCOSE (AUTOMATED)2022-02-13 01:48:01 Test Item Value Reference Range Interpretation Comments POCT GLU (test code = 0957458912) 184 mg/dL 70-110 H Lab Interpretation (test code = Abnormal 13454-3) [facility] GLUCOSE (AUTOMATED)2022-02-13 00:35:17 Test Item Value Reference Range Interpretation Comments POCT GLU (test code = 4510049189) 166 mg/dL 70-110 H Lab Interpretation (test code = Abnormal 99562-0) [facility] GLUCOSE (AUTOMATED)2022-02-12 23:26:35 Test Item Value Reference Range Interpretation Comments POCT GLU (test code = 4184063864) 149 mg/dL 70-110 H Lab Interpretation (test code = Abnormal 12796-8) [facility] GLUCOSE (AUTOMATED)2022-02-12 22:21:08 Test Item Value Reference Range Interpretation Comments POCT GLU (test code = 5195000982) 133 mg/dL 70-110 H Lab Interpretation (test code = Abnormal 26352-9) [facility] GLUCOSE (AUTOMATED)2022-02-12 21:06:47 Test Item Value Reference Range Interpretation Comments POCT GLU (test code = 5350231440) 130 mg/dL 70-110 H Lab Interpretation (test code = Abnormal 72994-6) [facility] GLUCOSE (AUTOMATED)2022-02-12 20:04:32 Test Item Value Reference Range Interpretation Comments POCT GLU (test code = 5935608776) 122 mg/dL 70-110 H Lab Interpretation (test code = Abnormal 65718-2) [facility] GLUCOSE (AUTOMATED)2022-02-12 19:08:55 Test Item Value Reference Range Interpretation Comments POCT GLU (test code = 4941212649) 133 mg/dL 70-110 H Lab Interpretation (test code = Abnormal 69695-0) [facility] GLUCOSE (AUTOMATED)2022-02-12 18:20:07 Test Item Value Reference Range Interpretation Comments POCT GLU (test code = 4174911207) 136 mg/dL 70-110 H Lab Interpretation (test code = Abnormal 50850-4) [facility] GLUCOSE (AUTOMATED)2022-02-12 17:19:20 Test Item Value Reference Range Interpretation Comments POCT GLU (test code = 9696307838) 155 mg/dL 70-110 H Lab Interpretation (test code = Abnormal 27438-3) [facility] GLUCOSE (AUTOMATED)2022-02-12 16:21:39 Test Item Value Reference Range Interpretation Comments POCT GLU (test code = 2446066434) 143 mg/dL 70-110 H Lab Interpretation (test code = Abnormal 76226-3) [facility] 16:14:56 Test Item Value Reference Range Interpretation Comments BOH (test code = 0.2 mmol/L 1715193108) JENNIFFER (test code = Normal Ranges: ? ? JENNIFFER) Nonfasting ? Less than 0.1 mmol/L ? ? Overnight Fast ? ? ? Less than 0.4 mmol/L ? ? Fasting (1-2 weeks) ?6-8 mmol/L Test developed and characteristics determined by [facility] Laboratory Services. [facility] GLUCOSE (AUTOMATED)2022-02-12 15:53:18 Test Item Value Reference Range Interpretation Comments POCT GLU (test code = 5517492470) 70-110 HH Lab Interpretation (test code = Abnormal 20877-8) [facility] GLUCOSE (AUTOMATED)2022-02-12 14:17:34 Test Item Value Reference Range Interpretation Comments POCT GLU (test code = 9168542494) 232 mg/dL 70-110 H Lab Interpretation (test code = Abnormal 36244-5) [facility] GLUCOSE (AUTOMATED)2022-02-12 13:17:46 Test Item Value Reference Range Interpretation Comments POCT GLU (test code = 6012195505) 295 mg/dL 70-110 H Lab Interpretation (test code = Abnormal 61343-0) [facility] METABOLIC PANEL (NA, K, CL, CO2, GLUCOSE, BUN, CREATININE, CA)2022-02-12 12:56:38 Test Item Value Reference Range Interpretation Comments NA (test code = 138 mmol/L 135-145 1790623426) K (test code = 4.0 mmol/L 3.5-5 6551148883) CL (test code = 98 mmol/L 98-108 2970535996) CO2 TOTAL (test code = 31 mmol/L 23-31 1277944233) AGAP (test code = 2-16 5982925941) BUN (test code = 20 mg/dL 7-23 9329671411) GLUCOSE (test code = 279 mg/dL 70-110 H 9288414411) CREATININE (test code = 1.08 mg/dL 0.5-1.04 H 8261647983) CALCIUM (test code = 8.8 mg/dL 8.6-10.6 6324906689) eGFR (test code = mL/min/1.73m2 9502803189) JENNIFFER (test code = JENNIFFER) Association of [...] tests). Lab Interpretation Abnormal (test code = 73786-0) [facility] GLUCOSE (AUTOMATED)2022-02-12 12:44:19 Test Item Value Reference Range Interpretation Comments POCT GLU (test code = 1813657168) 299 mg/dL 70-110 H Lab Interpretation (test code = Abnormal 04520-9) [facility] GLUCOSE (AUTOMATED)2022-02-12 12:19:29 Test Item Value Reference Range Interpretation Comments POCT GLU (test code = 8341014848) 283 mg/dL 70-110 H Lab Interpretation (test code = Abnormal 13316-8) [facility] GLUCOSE (AUTOMATED)2022-02-12 11:22:10 Test Item Value Reference Range Interpretation Comments POCT GLU (test code = 1928910913) 378 mg/dL 70-110 H Lab Interpretation (test code = Abnormal 36042-6) [facility] GLUCOSE (AUTOMATED)2022-02-12 10:18:29 Test Item Value Reference Range Interpretation Comments POCT GLU (test code = 0169586765) 376 mg/dL 70-110 H Lab Interpretation (test code = Abnormal 89616-9) [facility] [id number] 09:27:10 Test Item Value Reference Range Interpretation Comments OSMOLALITY (test code = See_Comment [Au tomated message] 2692-2) The system [employer] generated this result transmitted ref erence range: 278 - 30 5 mOsm/kg. The reference range was not used to int erpret this result as normal/abnormal . Lab Interpretation (test Abnormal code = 43336-2) [facility] METABOLIC PANEL (NA, K, CL, CO2, GLUCOSE, BUN, CREATININE, CA)2022-02-12 09:22:44 Test Item Value Reference Range Interpretation Comments NA (test code = 135 mmol/L 135-145 0569490112) K (test code = 4.7 mmol/L 3.5-5 8824929136) CL (test code = 93 mmol/L 98-108 L 6352172943) CO2 TOTAL (test code = 33 mmol/L 23-31 H 7928266468) AGAP (test code = 2-16 7965683747) BUN (test code = 22 mg/dL 7-23 8673050195) GLUCOSE (test code = 474 mg/dL 70-110 HH 5107570928) CREATININE (test code = 1.17 mg/dL 0.5-1.04 H 8657323553) CALCIUM (test code = 8.9 mg/dL 8.6-10.6 2308417069) eGFR (test code = mL/min/1.73m2 7785766413) JENNIFFER (test code = JENNIFFER) Association of [...] tests). Lab Interpretation Abnormal (test code = 36064-3) [facility] 09:19:06 Test Item Value Reference Range Interpretation Comments POCT GLU (test code = 9450762728) 478 mg/dL 70-110 HH Lab Interpretation (test code = Abnormal 42307-9) [facility] 09:16:19 Test Item Value Reference Range Interpretation Comments PHOSPHORUS (test code = 3446453772) 5.9 mg/dL 2.5-5 H Lab Interpretation (test code = Abnormal 09777-6) [facility] 09:16:19 Test Item Value Reference Range Interpretation Comments MAGNESIUM (test code = 3990196231) 2.1 mg/dL 1.7-2.4 Lab Interpretation (test code = Normal 44681-5) [facility]22-[facility]-12 09:10:46 Test Item Value Reference Range Interpretation Comments HGB A1C (test code = 9.7 % 4-5.7 H 4548-4) JENNIFFER (test code = JENNIFFER) Reference RangesNormal: <5.7%Prediabetes: 5.7 - 6.4%Diabetes: > 6.5% Lab Interpretation (test Abnormal code = 38590-1) [facility] [id number] 08:28:29 Test Item Value Reference Range Interpretation [...] RDW-SD (test code = 49.8 fL 39-49.9 45317-2) RDW-CV (test code = 15.7 % 12-15.5 H 788-0) PLT (test code = See_Comment [Automated 777-3) message] The system which generated this result transmit alden reference range : 166 - 358 10*3/ ?L. The reference range was not u sed to interpret th is result as normal/abnormal . MPV (test code = 9.7 fL 9.5-12.9 64229-4) NRBC/100 WBC (test See_Comment [Automat ed code = 0766418837) message] The system which generated this result transmit alden reference range : 0.0 - 10.0 /100 WBCs. The reference range was not used to interpret this result as normal/abnormal . NRBC x10^3 (test code See_Comment [Auto mated = 3964903299) message] The system which generated this result transmit alden reference range : 10*3/?L. The reference range was not used to interpret this result as normal/abnormal . GRAN MAT (NEUT) % 89.9 % (test code = 770-8) IMM GRAN % (test code 0.90 % = 7762894312) LYMPH % (test code = 3.4 % 736-9) MONO % (test code = 5.3 % 5905-5) EOS % (test code = 0.1 % 713-8) BASO % (test code = 0.4 % 706-2) GRAN MAT x10^3(ANC) 11.94 10*3/uL 1.88-7.09 H (test code = 1767251738) IMM GRAN x10^3 (test 0.12 10*3/uL 0-0.06 H code = 0492768694) LYMPH x10^3 (test code 0.45 10*3/uL 1.32-3.29 L = 731-0) MONO x10^3 (test code 0.70 10*3/uL 0.33-0.92 = 742-7) EOS x10^3 (test code = 0.03-0.39 L 711-2) BASO x10^3 (test code 0.05 10*3/uL 0.01-0.07 = 704-7) Lab Interpretation Abnormal (test code = 57739-1) [facility] GLUCOSE (AUTOMATED)2022-02-12 04:57:17 Test Item Value Reference Range Interpretation Comments POCT GLU (test code = 3910045129) 592 mg/dL 70-110 HH Lab Interpretation (test code = Abnormal 59071-9) [facility] GLUCOSE (AUTOMATED)2022-02-12 04:57:17 Test Item Value Reference Range Interpretation Comments POCT GLU (test code = 5779627271) 559 mg/dL 70-110 HH Lab Interpretation (test code = Abnormal 16903-8) [facility] [id number] 02:15:56 Test Item Value Reference Range Interpretation Comments TSH (test code = See_Comment [Automated message] 5800483009) The system [employer] generated this result transmitted ref erence range: 0.45 - 4 .70 mIU/L. The refe rence range was not u sed to interpret this result as normal/abnor mal. Lab Interpretation (test Normal code = 33467-2) [facility] [id number] 02:02:37 Test Item Value Reference Range Interpretation Comments FREE T4 (test code = See_Comment [Autom ated message] 4664089532) The system [employer] generated this result transmitted ref erence range: 0.78 - 2 .20 ng/dL:. The ref erence range was not u sed to interpret this result as normal/abnor mal. Lab Interpretation (test Normal code = 44330-4) [facility]EL[facility] [id number] 01:57:33 Test Item Value Reference Interpretation Comments Range TROPONIN I (test 0.001 ng/mL See_Comment [Automated code = 7306050542) message] The system which generated this result [...] biotin. Lab Interpretation Normal (test code = 88518-7) [facility]. METABOLIC PANEL (13592)2022-02-12 01:55:07 Test Item Value Reference Range Interpretation Comments NA (test code = 134 mmol/L 135-145 L 2134508700) K (test code = 4.4 mmol/L 3.5-5 9453840289) CL (test code = 95 mmol/L 98-108 L 3026290616) CO2 TOTAL (test code = 22 mmol/L 23-31 L 3909785710) AGAP (test code = 2-16 H 7005801328) BUN (test code = 22 mg/dL 7-23 7740189288) GLUCOSE (test code = 646 mg/dL 70-110 HH 8735629607) CREATININE (test code = 1.19 mg/dL 0.5-1.04 H 5175271700) TOTAL BILI (test code = 1.1 mg/dL 0.1-1.7 0663154909) CALCIUM (test code = 9.1 mg/dL 8.6-10.6 5175217821) T PROTEIN (test code = 7.0 g/dL 6.3-8.2 5651763733) ALBUMIN (test code = 4.1 g/dL 3.5-5 7948918480) ALK PHOS (test code = 245 U/L 34-122 H 4130483885) ALTv (test code = 78 U/L 5-35 H 1742-6) AST(SGOT) (test code = 76 U/L 13-40 H 1243241404) eGFR (test code = mL/min/1.73m2 0371215420) JENNIFFER (test code = JENNIFFER) Association of [...] tests). Lab Interpretation Abnormal (test code = 69188-1) [facility]MINAL [id number] 01:54:57 Test Item Value Reference Range Interpretation Comments NT-proBNP (test code 491 pg/mL See_Comment H [Autom ated = 3966645200) message] The system which generated this result transmitted reference range : <=125. The reference range was not used to interpret this result as normal/abnormal . JENNIFFER (test code = JENNIFFER) Biotin has been reported to cause a negative bias, interpret results relative to patient's use of biotin. Lab Interpretation Abnormal (test code = 73672-5) [facility]OL[facility] 01:47:18 ALCOHOL<10mg/dL02/11/2022 8:47 PM [facility]<10 Aijewkws54-460 Toxic>100 Depression of PTA>400 Fatalities ReportedUnEast [facility] Hospital and ClinicsAMMONIA, [id number] 01:46:13 Test Item Value Reference Range Interpretation Comments AMMONIA (test code = 5739927852) 28 umol/L 9-33 Lab Interpretation (test code = Normal 29092-5) [facility] TH[facility]AS [id number] 01:39:11 Test Item Value Reference Range Interpretation Comments APTT Patient (test See_Comment [Automat ed code = 3173-2) message] The system which generated this result transmitted reference range : 23 - 38 Seconds . The reference range was not used to interpr et this result as normal/abnormal . JENNIFFER (test code = JENNIFFER) The [facility] patient population mean normal value for aPTT is 30 seconds. Lab Interpretation Normal (test code = 62573-4) [facility] WITH [id number] 01:37:15 Test Item Value Reference Range Interpretation Comments WBC (test code = See_Comment H [Automated 0590-2) message] The sy stem which generated this result transmitted reference range : 4.30 - 11.10 10*3/?L. The reference range was not used to interpret this result as normal/abnormal . RBC (test code = See_Comment L [Automated 679-8) message] The sy stem which generated this [...] (test code = 50.9 fL 39-49.9 H 61777-8) RDW-CV (test code = 15.8 % 12-15.5 H 788-0) PLT (test code = See_Comment [Automated 777-3) message] The sy stem which generated this result transmitted reference range : 166 - 358 10*3/ ?L. The reference r josselyn was not used to interpret this result as normal/abnormal . MPV (test code = 9.9 fL 9.5-12.9 43868-0) NRBC/100 WBC (test See_Comment [Automat ed code = 7512071201) message] The system which generated this result transmitted reference range : 0.0 - 10.0 /100 WBCs. The refer ence range was not u sed to interpret th is result as normal/abnormal . NRBC x10^3 (test code See_Comment [Auto mated = 0115051905) message] The s ystem which generated this result transmitted reference range : 10*3/?L. The reference range was not used to interpret this result as normal/abnormal . GRAN MAT (NEUT) % 78.5 % (test code = 770-8) IMM GRAN % (test code 1.20 % = 4288204890) LYMPH % (test code = 12.2 % 736-9) MONO % (test code = 6.4 % 5905-5) EOS % (test code = 1.0 % 713-8) BASO % (test code = 0.7 % 706-2) GRAN MAT x10^3(ANC) 8.80 10*3/uL 1.88-7.09 H (test code = 7967480631) IMM GRAN x10^3 (test 0.14 10*3/uL 0-0.06 H code = 6377627447) LYMPH x10^3 (test code 1.37 10*3/uL 1.32-3.29 = 731-0) MONO x10^3 (test code 0.72 10*3/uL 0.33-0.92 = 742-7) EOS x10^3 (test code = 0.11 10*3/uL 0.03-0.39 711-2) BASO x10^3 (test code 0.08 10*3/uL 0.01-0.07 H = 704-7) Lab Interpretation Abnormal (test code = 00124-1) [facility]PROTHROMBIN [facility] / [id number] 01:36:50 Test Item Value Reference Range Interpretation Comments PROTIME PATIENT (test See_Comment [Auto mated message] code = 5964-2) The system Shwrüm ich generated this result transmitted ref erence range: 12.0 - 1 4.7 Seconds. The re ference range was not u sed to interpret this result as normal/abnor mal. INR (test code = 6301-6) Nor mal INR <1.1; Warfarin Therap eutic range 2.0 to 3. 0 or 2.5 to 3.5, dep ending upon the indica tions. Lab Interpretation (test Normal code = 32209-6) [facility]31 18:41:03 Test Item Value Reference Range Interpretation Comments POCT GLU (test code = 9074969543) 241 mg/dL 70-110 H Lab Interpretation (test code = Abnormal 79252-1) [facility] HospitalSPUTUM [id number] 14:36:01 Test Item Value Reference Range Interpretation Comments SPUTUM CULTURE 1+ Respiratory iveth: (test code = 622-1) Commensal upper respiratory microorganisms only. Gram stain (test Few Epithelial cells code = 664-3) JENNIFFER (test code = Bacterial pathogens JENNIFFER) associated with lower respiratory infections were not identified, which include Pseudomonas aeruginosa and Staphylococcus aureus (MRSA or MSSA). [id number] 14:27:39 Test Item Value Reference Range Interpretation Comments NT-proBNP (test code 2930 pg/mL See_Comment H [Autom ated = 6493016271) message] The system which generated this result transmitted reference range : <=125. The reference range was not used to interpret this result as normal/abnormal . JENNIFFER (test code = JENNIFFER) Biotin has been reported to cause a negative bias, interpret results relative to patient's use of biotin. Lab Interpretation Abnormal (test code = 53439-8) [facility] 13:06:37 Test Item Value Reference Range Interpretation Comments POCT GLU (test code = 4411828473) 144 mg/dL 70-110 H Lab Interpretation (test code = Abnormal 10985-9) [facility] METABOLIC PANEL (NA, K, CL, CO2, GLUCOSE, BUN, CREATININE, CA)2022-01-31 11:52:51 Test Item Value Reference Range Interpretation Comments NA (test code = 139 mmol/L 135-145 0407514466) K (test code = 4.2 mmol/L 3.5-5.0 9119622441) CL (test code = 92 mmol/L 98-108 L 2233424945) CO2 TOTAL (test code = 39 mmol/L 23-31 H 9937721332) AGAP (test code = 2-16 9244702107) BUN (test code = 32 mg/dL 7-23 H 1058344761) GLUCOSE (test code = 183 mg/dL 70-110 H 3164763072) CREATININE (test code = 0.89 mg/dL 0.50-1.04 0147006216) CALCIUM (test code = 8.7 mg/dL 8.6-10.6 6138076500) eGFR (test code = mL/min/1.73m2 2030974777) JENNIFFER (test code = JENNIFFER) Association of [...] tests). Lab Interpretation Abnormal (test code = 53656-6) [facility]:09 Test Item Value Reference Range Interpretation Comments MAGNESIUM (test code = 9854694686) 2.4 mg/dL 1.7-2.4 Lab Interpretation (test code = Normal 31147-0) [facility] 11:44:49 Test Item Value Reference Range Interpretation Comments PHOSPHORUS (test code = 2451613535) 3.3 mg/dL 2.5-5.0 Lab Interpretation (test code = Normal 62957-3) [facility] GLUCOSE (AUTOMATED)2022-01-30 21:23:07 Test Item Value Reference Range Interpretation Comments POCT GLU (test code = 4163561079) 357 mg/dL 70-110 H Lab Interpretation (test code = Abnormal 48749-2) [facility] GLUCOSE (AUTOMATED)2022-01-30 17:39:07 Test Item Value Reference Range Interpretation Comments POCT GLU (test code = 1140378623) 183 mg/dL 70-110 H Lab Interpretation (test code = Abnormal 00553-3) [facility] GLUCOSE (AUTOMATED)2022-01-30 17:39:07 Test Item Value Reference Range Interpretation Comments POCT GLU (test code = 1903624405) 275 mg/dL 70-110 H Lab Interpretation (test code = Abnormal 90632-2) [facility] GLUCOSE (AUTOMATED)2022-01-30 13:42:50 Test Item Value Reference Range Interpretation Comments POCT GLU (test code = 1909568732) 187 mg/dL 70-110 H Lab Interpretation (test code = Abnormal 64865-0) [facility] [id number] 10:44:07 Test Item Value Reference Range Interpretation Comments NT-proBNP (test code 3180 pg/mL See_Comment H [Autom ated = 6037526269) message] The system which generated this result transmitted reference range : <=125. The reference range was not used to interpret this result as normal/abnormal . JENNIFFER (test code = JENNIFFER) Biotin has been reported to cause a negative bias, interpret results relative to patient's use of biotin. Lab Interpretation Abnormal (test code = 25259-1) [facility] (43252)2022-01-30 10:36:27 Test Item Value Reference Range Interpretation Comments NA (test code = 139 mmol/L 135-145 3288149215) K (test code = 3.7 mmol/L 3.5-5.0 3351871514) CL (test code = 92 mmol/L 98-108 L 7196344990) CO2 TOTAL (test code = 37 mmol/L 23-31 H 7443343286) AGAP (test code = 2-16 4687407295) BUN (test code = 22 mg/dL 7-23 1227485886) GLUCOSE (test code = 192 mg/dL 70-110 H 0950293455) CREATININE (test code = 1.04 mg/dL 0.50-1.04 1957660421) TOTAL BILI (test code = 0.7 mg/dL 0.1-1.0 4040715204) CALCIUM (test code = 8.3 mg/dL 8.6-10.6 L 1659921129) T PROTEIN (test code = 6.8 g/dL 6.3-8.2 2817727975) ALBUMIN (test code = 3.7 g/dL 3.5-5.0 7229427968) ALK PHOS (test code = 124 U/L 34-122 H 2517689214) ALTv (test code = 28 U/L 5-35 1742-6) AST(SGOT) (test code = 24 U/L 13-40 2512287400) eGFR (test code = mL/min/1.73m2 5281050744) JENNIFFER (test code = JENNIFFER) Association of [...] tests). Lab Interpretation Abnormal (test code = 10456-9) [facility] WITH [id number] 09:41:38 Test Item Value Reference Range Interpretation Comments WBC (test code = See_Comment [Automated 6242-2) message] The sy stem which generated this result transmitted reference range : 4.30 - 11.10 10*3/?L. The reference range was not used to interpret this result as normal/abnormal . RBC (test code = See_Comment L [Automated 926-5) message] The sy stem which generated this [...] RDW-SD (test code = 47.8 fL 39.0-49.9 86026-9) RDW-CV (test code = 15.0 % 12.0-15.5 788-0) PLT (test code = See_Comment [Automated 777-3) message] The sy stem which generated this result transmitted reference range : 166 - 358 10*3/ ?L. The reference r josselyn was not used to interpret this result as normal/abnormal . MPV (test code = 9.1 fL 9.5-12.9 L 73993-1) NRBC/100 WBC (test See_Comment [Automat ed code = 6807641078) message] The system which generated this result transmitted reference range : 0.0 - 10.0 /100 WBCs. The refer ence range was not u sed to interpret th is result as normal/abnormal . NRBC x10^3 (test code <0.01 See_Comment [Auto mated = 1970712026) message] The s ystem which generated this result transmitted reference range : 10*3/?L. The reference range was not used to interpret this result as normal/abnormal . GRAN MAT (NEUT) % 85.7 % (test code = 770-8) IMM GRAN % (test code 0.60 % = 8530404153) LYMPH % (test code = 7.1 % 736-9) MONO % (test code = 6.1 % 5905-5) EOS % (test code = 0.1 % 713-8) BASO % (test code = 0.4 % 706-2) GRAN MAT x10^3(ANC) 7.16 10*3/uL 1.88-7.09 H (test code = 4945317073) IMM GRAN x10^3 (test 0.05 10*3/uL 0.00-0.06 code = 1649099818) LYMPH x10^3 (test code 0.59 10*3/uL 1.32-3.29 L = 731-0) MONO x10^3 (test code 0.51 10*3/uL 0.33-0.92 = 742-7) EOS x10^3 (test code = <0.03 0.03-0.39 L 711-2) BASO x10^3 (test code 0.03 10*3/uL 0.01-0.07 = 704-7) Lab Interpretation Abnormal (test code = 70794-2) [facility] GLUCOSE (AUTOMATED)2022-01-30 03:06:20 Test Item Value Reference Range Interpretation Comments POCT GLU (test code = 2939523492) 336 mg/dL 70-110 H Lab Interpretation (test code = Abnormal 24741-2) [facility] 21:35:38 Test Item Value Reference Range Interpretation Comments PHOSPHORUS (test code = 2534987838) 4.3 mg/dL 2.5-5.0 Lab Interpretation (test code = Normal 79472-5) [facility] GLUCOSE (AUTOMATED)2022-01-29 21:21:35 Test Item Value Reference Range Interpretation Comments POCT GLU (test code = 3443791744) 354 mg/dL 70-110 H Lab Interpretation (test code = Abnormal 36850-3) [facility] GLUCOSE (AUTOMATED)2022-01-29 16:10:10 Test Item Value Reference Range Interpretation Comments POCT GLU (test code = 8536698096) 240 mg/dL 70-110 H Lab Interpretation (test code = Abnormal 08510-9) [facility] GLUCOSE (AUTOMATED)2022-01-29 15:16:07 Test Item Value Reference Range Interpretation Comments POCT GLU (test code = 2373389326) 219 mg/dL 70-110 H Lab Interpretation (test code = Abnormal 79214-6) [facility] GLUCOSE (AUTOMATED)2022-01-29 13:06:22 Test Item Value Reference Range Interpretation Comments POCT GLU (test code = 2729902933) 176 mg/dL 70-110 H Lab Interpretation (test code = Abnormal 90785-2) [facility]. METABOLIC PANEL (80542)2022-01-29 10:31:34 Test Item Value Reference Range Interpretation Comments NA (test code = 141 mmol/L 135-145 9665419898) K (test code = 4.2 mmol/L 3.5-5.0 2845063177) CL (test code = 96 mmol/L 98-108 L 8765107718) CO2 TOTAL (test code = 37 mmol/L 23-31 H 6923861007) AGAP (test code = 2-16 5893588481) BUN (test code = 20 mg/dL 7-23 9694854922) GLUCOSE (test code = 179 mg/dL 70-110 H 9533480784) CREATININE (test code = 0.90 mg/dL 0.50-1.04 1161188030) TOTAL BILI (test code = 0.7 mg/dL 0.1-1.4 4373136460) CALCIUM (test code = 8.3 mg/dL 8.6-10.6 L 2947143846) T PROTEIN (test code = 7.3 g/dL 6.3-8.2 4817762327) ALBUMIN (test code = 3.9 g/dL 3.5-5.0 6291979684) ALK PHOS (test code = 151 U/L 34-122 H 3320719383) ALTv (test code = 44 U/L 5-35 H 1742-6) AST(SGOT) (test code = 54 U/L 13-40 H 4986940630) eGFR (test code = mL/min/1.73m2 7418277826) JENNIFFER (test code = JENNIFFER) Association of [...] tests). Lab Interpretation Abnormal (test code = 57928-6) [facility] [id number] 10:06:38 Test Item Value Reference Range Interpretation Comments NT-proBNP (test code 3080 pg/mL See_Comment H [Autom ated = 3379219030) message] The system which generated this result transmitted reference range : <=125. The reference range was not used to interpret this result as normal/abnormal . JENNIFFER (test code = JENNIFFER) Biotin has been reported to cause a negative bias, interpret results relative to patient's use of biotin. Lab Interpretation Abnormal (test code = 78771-3) [facility] 09:58:35 Test Item Value Reference Range Interpretation Comments MAGNESIUM (test code = 2520658926) 1.8 mg/dL 1.7-2.4 Lab Interpretation (test code = Normal 49511-4) [facility] [id number] 09:47:53 Test Item Value Reference Range Interpretation Comments WBC (test code = See_Comment H [Automated 9290-2) message] The system which generated this result transmit alden reference range : 4.30 - 11.10 10*3/?L. The reference range was not used to interpret this result as normal/abnormal . RBC (test code = See_Comment L [Automated 929-8) message] The system which generated [...] (test code = 50.9 fL 39.0-49.9 H 08319-1) RDW-CV (test code = 15.5 % 12.0-15.5 788-0) PLT (test code = See_Comment [Automated 777-3) message] The system which generated this result transmit alden reference range : 166 - 358 10*3/ ?L. The reference range was not u sed to interpret th is result as normal/abnormal . MPV (test code = 9.9 fL 9.5-12.9 37001-8) NRBC/100 WBC (test See_Comment [Automat ed code = 7614133452) message] The system which generated this result transmit alden reference range : 0.0 - 10.0 /100 WBCs. The reference range was not used to interpret this result as normal/abnormal . NRBC x10^3 (test code <0.01 See_Comment [Auto mated = 4502002066) message] The system which generated this result transmit alden reference range : 10*3/?L. The reference range was not used to interpret this result as normal/abnormal . GRAN MAT (NEUT) % 87.2 % (test code = 770-8) IMM GRAN % (test code 0.50 % = 9622790996) LYMPH % (test code = 5.6 % 736-9) MONO % (test code = 5.9 % 5905-5) EOS % (test code = 0.4 % 713-8) BASO % (test code = 0.4 % 706-2) GRAN MAT x10^3(ANC) 10.37 10*3/uL 1.88-7.09 H (test code = 0982607908) IMM GRAN x10^3 (test 0.06 10*3/uL 0.00-0.06 code = 9662588907) LYMPH x10^3 (test code 0.66 10*3/uL 1.32-3.29 L = 731-0) MONO x10^3 (test code 0.70 10*3/uL 0.33-0.92 = 742-7) EOS x10^3 (test code = 0.05 10*3/uL 0.03-0.39 711-2) BASO x10^3 (test code 0.05 10*3/uL 0.01-0.07 = 704-7) Lab Interpretation Abnormal (test code = 30050-5) [facility] GLUCOSE (AUTOMATED)2022-01-29 05:48:29 Test Item Value Reference Range Interpretation Comments POCT GLU (test code = 3987806566) 297 mg/dL 70-110 H Lab Interpretation (test code = Abnormal 61044-1) [facility] GLUCOSE (AUTOMATED)2022-01-29 05:48:29 Test Item Value Reference Range Interpretation Comments POCT GLU (test code = 5120152516) 282 mg/dL 70-110 H Lab Interpretation (test code = Abnormal 11857-7) [facility] GLUCOSE (AUTOMATED)2022-01-28 23:35:33 Test Item Value Reference Range Interpretation Comments POCT GLU (test code = 8788496264) 302 mg/dL 70-110 H Lab Interpretation (test code = Abnormal 19785-6) [facility], [id number] 23:17:54 Test Item Value Reference Range Interpretation Comments VIT B12 (test code = 265 pg/mL 240-930 8422861611) JENNIFFER (test code = JENNIFFER) Biotin has been reported to cause a positive bias, interpret results relative to patient's use of biotin. Lab Interpretation (test Normal code = 17554-4) [facility] 20:35:43 Test Item Value Reference Range Interpretation Comments Procalcitonin (test 0.13 ng/mL <0.07 H code = 8908449199) JENNIFFER (test code = JENNIFFER) INTERPRETATION OF [...] lung abscess/empyema. For further information please refer to:[email or web address] Lab Interpretation Abnormal (test code = 40006-4) [facility] D, [id number] 20:34:43 Test Item Value Reference Range Interpretation Comments VIT D 25OH (test code = 23 ng/mL 25-80 L 57228-1) JENNIFFER (test code = JENNIFFER) Deficiency: <20 ng/mLInsufficiency: 20-24 ng/mLOptimal: 25-80 ng/mL Lab Interpretation (test Abnormal code = 08282-8) [facility] [id number] 18:15:31 Test Item Value Reference Interpretation Comments Range TROPONIN I (test 0.003 ng/mL See_Comment [Automated code = 3787957540) message] The system which generated this result [...] biotin. Lab Interpretation Normal (test code = 81088-0) [facility] [id number] 18:04:12 Test Item Value Reference Range Interpretation Comments URIC ACID (test code = 5858266027) 9.3 mg/dL 2.9-6.0 H Lab Interpretation (test code = Abnormal 01772-8) [facility]an[facility] (TTE)2022-01-28 17:57:52 Test Item Value Reference Range Interpretation Comments Height (test code = in 0290480582) Weight (test code = lbs 4373877421) Systolic BP (test code = mmHg 2651201399) Diastolic BP (test code = mmHg 8245049161) Heart Rate (test code = bpm 6525121006) Ao root annulus (test 3.1 cm code = 5239468113) Ao root diam (test code = 3.10 cm 8986846374) Aortic root (test code = 3.1 cm 2619420239) LA size (test code = 4.9 cm 0188163163) LVOT diameter (test code 2.10 cm = 2152457498) E wave decelartion time 0.25 s (test code = 4092309674) MV Peak E Marva (test code 83.7 cm/s = 0795320005) MV Peak A Marva (test code 66.0 cm/s = 1167037392) E/A ratio (test code = ratio 4095358335) MV E/e' septal (test code 8.2 cm/s = 1348331201) Tapse (test code = 1.68 cm 4814716077) Aortic valve mean 77.4 cm/s velocity (test code = 7800858249) Ao peak marva (test code = 124.6 cm/s 4526891853) Ao VTI (test code = 20.7 cm 3999763744) Ao max PG (test code = 6.20 mm[Hg] 0476354816) AV peak gradient (test mmHg code = 3721815441) AV mean gradient (test mmHg code = 0712870485) LVOT stroke volume (test 62.00 cm3 code = 3593255163) LVOT peak marva (test code 104.3 cm/s = 3402709789) LVOT mn grad (test code = mmHg 0057086159) AV LVOT peak gradient mmHg (test code = 4015646957) LVOT peak VTI (test code 17.9 cm = 3602574443) AV area by cont VTI (test 3.0 cm2 code = 2036431146) AV area peak marva (test 2.9 cm2 code = 5555130679) LV V1 mean (test code = 63.60 cm/s 9561104808) AV valve area (test code 3.00 cm2 = 0984907386) LVIDD (test code = 5.20 cm 5814752570) IVS (test code = 0.79 cm 0390716461) Interventricular Septum 0.79 cm Diastolic Thickness by 2D (test code = 2530281) LVPWD (test code = 0.66 cm 0084195461) PW (test code = 0.66 cm 0.6-1.6 8478616222) EF(Teich) (test code = 48.60 % 9018224812) LVIDS (test code = 3.90 cm 2754106216) FS (test code = 25 % 9019686203) EF - 2D (test code = 48.60 % 20990786) Radiology Study observation (narrative) (test code = 24480-8) JENNIFFER (test code = JENNIFFER) ?Left?Ventricle: Normal systolic function with a visually estimated EF of 60 - 65%. ?Tricuspid?Valve: Insufficient regurgant jet to estimate RVSP. ?RA pressure is 10-15 mmHg. VitalsHeight Weight BSA (Calculated - sq m) BP Pulse 5' 1" (1.549 m) 230 lb (104.3 kg) 2.12 sq meters 118/66 96 [facility] [id number] 14:19:29 Test Item Value Reference Interpretation Comments Range TROPONIN I (test 0.003 ng/mL See_Comment [Automated code = 9928700123) message] The system which generated this result [...] biotin. Lab Interpretation Normal (test code = 28346-5) [facility] [id number] 14:16:29 Test Item Value Reference Range Interpretation Comments NT-proBNP (test code 1170 pg/mL See_Comment H [Autom ated = 7155768001) message] The system which generated this result transmitted reference range : <=125. The reference range was not used to interpret this result as normal/abnormal . JENNIFFER (test code = JENNIFFER) Biotin has been reported to cause a negative bias, interpret results relative to patient's use of biotin. Lab Interpretation Abnormal (test code = 13696-2) [facility] HospitalIRON [id number] 14:14:29 Test Item Value Reference Range Interpretation Comments IRON (test code = 4555065072) 42 ug/dL 50-160 L TIBC (test code = 9672849233) 299 ug/dL 250-410 % FE SAT (test code = 9309037353) 14 % 20-50 L Lab Interpretation (test code = Abnormal 02579-6) [facility] GLUCOSE (AUTOMATED)2022-01-28 14:00:04 Test Item Value Reference Range Interpretation Comments POCT GLU (test code = 1471605177) 197 mg/dL 70-110 H Lab Interpretation (test code = Abnormal 78371-1) [facility] GLUCOSE (AUTOMATED)2022-01-28 13:01:52 Test Item Value Reference Range Interpretation Comments POCT GLU (test code = 9755973428) 211 mg/dL 70-110 H Lab Interpretation (test code = Abnormal 27620-9) [facility]FERRITIN [id number] 13:00:31 Test Item Value Reference Range Interpretation Comments FERRITIN (test code = 86.8 ng/mL 11.0-264.0 7053954369) JENNIFFER (test code = JENNIFFER) Biotin has been reported to cause a negative bias, interpret results relative to patient's use of biotin. Lab Interpretation (test Normal code = 41109-1) [facility]TH[facility]ULATING [id number] 12:56:35 Test Item Value Reference Range Interpretation Comments TSH (test code = See_Comment [Automated message] 6826541876) The system [employer] generated this result transmitted ref erence range: 0.45 - 4 .70 mIU/L. The refe rence range was not u sed to interpret this result as normal/abnor mal. Lab Interpretation (test Normal code = 02022-9) [facility]SEDIMENTATION [id number] 12:41:55 Test Item Value Reference Range Interpretation Comments ESR (test code = See_Comment H [Automated message] 0407923076) The system [employer] generated this result transmitted ref erence range: 0 - 20 m m/HR. The reference r josselyn was not used to interpret this result as normal/abnor mal. Lab Interpretation (test Abnormal code = 28441-1) [facility] [id number] 12:38:13 Test Item Value Reference Interpretation Comments Range TROPONIN I (test 0.003 ng/mL See_Comment [Automated code = 2324790349) message] The system which generated this result [...] biotin. Lab Interpretation Normal (test code = 30116-8) [facility] [id number] 12:34:52 Test Item Value Reference Range Interpretation Comments NT-proBNP (test code 1150 pg/mL See_Comment H [Autom ated = 4837059987) message] The system which generated this result transmitted reference range : <=125. The reference range was not used to interpret this result as normal/abnormal . JENNIFFER (test code = JENNIFFER) Biotin has been reported to cause a negative bias, interpret results relative to patient's use of biotin. Lab Interpretation Abnormal (test code = 39900-0) [facility] HospitalLIPID PANEL (91940)(TOTAL CHOLESTEROL, TRIGLYCERIDES, HDL)2022-01-28 12:26:13 Test Item Value Reference Range Interpretation Comments CHOL (test code = 122 mg/dL 120-200 1705361237) HDL (test code = 27 mg/dL >50 L 9739397235) HDLC RATIO (test code = See_Comment [Au tomated message] 0794795811) The system [employer] generated this result transmit alden reference range : <=4.5. The refe rence range was not u sed to interpret th is result as normal/abnormal . TRIG (test code = 249 mg/dL 30-170 H 5258157231) LDL CHOL (test code = 45 mg/dL See_Comment [Auto mated message] 16975-2) The system [employer] generated this result transmit alden reference range : <=160. The refe rence range was not u sed to interpret th is result as normal/abnormal . VLDL (test code = 50 mg/dL 5-60 3612068590) Lab Interpretation (test Abnormal code = 99345-7) [facility] 12:26:13 Test Item Value Reference Range Interpretation Comments MAGNESIUM (test code = 8219433309) 1.9 mg/dL 1.7-2.4 Lab Interpretation (test code = Normal 53500-0) [facility]OL[facility] (79840)2022-01-28 12:25:53 Test Item Value Reference Range Interpretation Comments NA (test code = 141 mmol/L 135-145 7260229721) K (test code = 4.9 mmol/L 3.5-5.0 1064722724) CL (test code = 101 mmol/L 98-108 5562287124) CO2 TOTAL (test code = 32 mmol/L 23-31 H 1417599576) AGAP (test code = 2-16 4827319417) BUN (test code = 20 mg/dL 7-23 3160887217) GLUCOSE (test code = 217 mg/dL 70-110 H 3292862954) CREATININE (test code = 1.05 mg/dL 0.50-1.04 H 4011938036) TOTAL BILI (test code = 0.7 mg/dL 0.1-1.1 4586065080) CALCIUM (test code = 8.5 mg/dL 8.6-10.6 L 5234186615) T PROTEIN (test code = 7.2 g/dL 6.3-8.2 9142570601) ALBUMIN (test code = 3.9 g/dL 3.5-5.0 7850242539) ALK PHOS (test code = 161 U/L 34-122 H 5885096888) ALTv (test code = 50 U/L 5-35 H 1742-6) AST(SGOT) (test code = 61 U/L 13-40 H 9957078353) eGFR (test code = mL/min/1.73m2 6904760954) JENNIFFER (test code = JENNIFFER) Association of [...] tests). Lab Interpretation Abnormal (test code = 94955-9) [facility] 12:25:53 Test Item Value Reference Range Interpretation Comments PHOSPHORUS (test code = 2163128362) 5.3 mg/dL 2.5-5.0 H Lab Interpretation (test code = Abnormal 45610-5) [facility] [id number] 12:25:33 Test Item Value Reference Range Interpretation Comments URIC ACID (test code = 4039854591) 9.5 mg/dL 2.9-6.0 H Lab Interpretation (test code = Abnormal 86337-3) [facility] HospitalCREATINE [id number] 12:25:13 Test Item Value Reference Range Interpretation Comments CK (test code = 9268045342) 27 U/L 33-194 L Lab Interpretation (test code = Abnormal 33884-3) [facility] HospitalGLYCOSYLATED HEMOGLOBIN (A1C)2022-01-28 07:50:20 Test Item Value Reference Range Interpretation Comments HGB A1C (test code = 8.9 % 4.0-5.7 H 4548-4) JENNIFFER (test code = JENNIFFER) Reference RangesNormal: <5.7%Prediabetes: 5.7 - 6.4%Diabetes: > 6.5% Lab Interpretation (test Abnormal code = 38448-7) [facility] [id number] 03:04:27 Test Item Value Reference Interpretation Comments Range TROPONIN I (test 0.002 ng/mL See_Comment [Automated code = 0026860038) message] The system which generated this result [...] biotin. Lab Interpretation Normal (test code = 33260-7) [facility] [id number] 03:01:09 Test Item Value Reference Range Interpretation Comments NT-proBNP (test code 358 pg/mL See_Comment H [Autom ated = 3545692081) message] The system which generated this result transmitted reference range : <=125. The reference range was not used to interpret this result as normal/abnormal . JENNIFFER (test code = JENNIFFER) Biotin has been reported to cause a negative bias, interpret results relative to patient's use of biotin. Lab Interpretation Abnormal (test code = 08618-4) [facility]ACT[facility] THRMPLAS [id number] 02:54:28 Test Item Value Reference Range Interpretation Comments APTT Patient (test See_Comment [Automat ed code = 3173-2) message] The system which generated this result transmitted reference range : 23 - 38 Seconds . The reference range was not used to interpr et this result as normal/abnormal . JENNIFFER (test code = JENNIFFER) [facility] patient population mean normal value for aPTT is 30 seconds. Lab Interpretation Normal (test code = 13477-4) [facility][id number]-28 02:52:27 Test Item Value Reference Range Interpretation Comments NA (test code = 137 mmol/L 135-145 4281598742) K (test code = 5.0 mmol/L 3.5-5.0 7967982425) CL (test code = 101 mmol/L 98-108 0308412652) CO2 TOTAL (test code = 22 mmol/L 23-31 L 6685385475) AGAP (test code = 2-16 8091623799) BUN (test code = 21 mg/dL 7-23 3893734678) GLUCOSE (test code = 334 mg/dL 70-110 H 9915045323) CREATININE (test code = 1.03 mg/dL 0.50-1.04 5802445997) TOTAL BILI (test code = 0.8 mg/dL 0.1-1.9 9522498091) CALCIUM (test code = 9.0 mg/dL 8.6-10.6 3619039160) T PROTEIN (test code = 7.3 g/dL 6.3-8.2 9748548399) ALBUMIN (test code = 4.2 g/dL 3.5-5.0 7210910525) ALK PHOS (test code = 186 U/L 34-122 H 6150417181) ALTv (test code = 53 U/L 5-35 H 1742-6) AST(SGOT) (test code = 98 U/L 13-40 H 3569120559) eGFR (test code = mL/min/1.73m2 3838001979) JENNIFFER (test code = JENNIFFER) Association of [...] tests). Lab Interpretation Abnormal (test code = 74273-2) [facility] [id number] 02:51:06 Test Item Value Reference Range Interpretation Comments PROTIME PATIENT (test See_Comment [Auto mated message] code = 5964-2) The system [employer] generated this result transmitted ref erence range: 12.0 - 1 4.7 Seconds. The re ference range was not u sed to interpret this result as normal/abnor mal. INR (test code = 6301-6) Nor mal INR <1.1; Warfarin Therap eutic range 2.0 to 3. 0 or 2.5 to 3.5, dep ending upon the indica tions. Lab Interpretation (test Normal code = 20869-0) [facility] WITH [id number] 02:43:03 Test Item Value Reference Range Interpretation [...] RDW-SD (test code = 49.4 fL 39.0-49.9 41376-0) RDW-CV (test code = 15.6 % 12.0-15.5 H 788-0) PLT (test code = See_Comment [Automated 777-3) message] The sy stem which generated this result transmitted reference range : 166 - 358 10*3/ ?L. The reference r josselyn was not used to interpret this result as normal/abnormal . MPV (test code = 9.7 fL 9.5-12.9 38188-7) NRBC/100 WBC (test See_Comment [Automat ed code = 6113285143) message] The system which generated this result transmitted reference range : 0.0 - 10.0 /100 WBCs. The refer ence range was not u sed to interpret th is result as normal/abnormal . NRBC x10^3 (test code <0.01 See_Comment [Auto mated = 6767502379) message] The s ystem which generated this result transmitted reference range : 10*3/?L. The reference range was not used to interpret this result as normal/abnormal . GRAN MAT (NEUT) % 88.0 % (test code = 770-8) IMM GRAN % (test code 0.60 % = 7030938309) LYMPH % (test code = 5.4 % 736-9) MONO % (test code = 4.5 % 5905-5) EOS % (test code = 0.9 % 713-8) BASO % (test code = 0.6 % 706-2) GRAN MAT x10^3(ANC) 9.50 10*3/uL 1.88-7.09 H (test code = 9274190791) IMM GRAN x10^3 (test 0.06 10*3/uL 0.00-0.06 code = 8356746643) LYMPH x10^3 (test code 0.58 10*3/uL 1.32-3.29 L = 731-0) MONO x10^3 (test code 0.49 10*3/uL 0.33-0.92 = 742-7) EOS x10^3 (test code = 0.10 10*3/uL 0.03-0.39 711-2) BASO x10^3 (test code 0.06 10*3/uL 0.01-0.07 = 704-7) Lab Interpretation Abnormal (test code = 38151-8) [facility]. METABOLIC PANEL ([id number])2022-01-12 23:54:59 Test Item Value Reference Range Interpretation Comments NA (test code = 143 mmol/L 135-145 5765947319) K (test code = 4.1 mmol/L 3.5-5.0 7513681035) CL (test code = 103 mmol/L 98-108 5839916705) CO2 TOTAL (test code = 27 mmol/L 23-31 9144306078) AGAP (test code = 2-16 4891970355) BUN (test code = 12 mg/dL 7-23 0566947560) GLUCOSE (test code = 278 mg/dL 70-110 H 8566689827) CREATININE (test code = 0.61 mg/dL 0.50-1.04 2229697736) TOTAL BILI (test code = 0.6 mg/dL 0.1-1.0 3048989651) CALCIUM (test code = 9.6 mg/dL 8.6-10.6 0214598313) T PROTEIN (test code = 7.6 g/dL 6.3-8.2 0951121560) ALBUMIN (test code = 4.3 g/dL 3.5-5.0 6211627657) ALK PHOS (test code = 130 U/L 34-122 H 0705529737) ALTv (test code = 29 U/L 5-35 2-6) AST(SGOT) (test code = 39 U/L 13-40 5575076891) eGFR (test code = mL/min/1.73m2 5658292517) JENNIFFER (test code = JENNIFFER) Association of [...] tests). Lab Interpretation Abnormal (test code = 62141-4) [facility] WITH [id number] 23:43:55 Test Item Value Reference Range Interpretation [...] (test code = 47.8 fL 39.0-49.9 Previous 35325-9) preliminary verified result was 48.1 fL on [...] (test code = 10.0 fL 9.5-12.9 Previous 82595-0) preliminary verified result was 9.9 fL on 2021 at 1842 CDT IPF % (test code = 3.9 % 1.3-7.7 Platelet count 1592483758) measured by fluorescence method. NRBC/100 WBC (test See_Comment [Automat ed code = 3739871143) message] The system which generated this result transmitted reference range : 0.0 - 10.0 /100 WBCs. The refer ence range was not u sed to interpret th is result as normal/abnormal . NRBC x10^3 (test code <0.01 See_Comment [Auto mated = 8771201215) message] The s ystem which generated this result transmitted reference range : 10*3/?L. The reference range was not used to interpret this result as normal/abnormal . GRAN MAT (NEUT) % 85.9 % (test code = 770-8) IMM GRAN % (test code 0.90 % = 4461014769) LYMPH % (test code = 4.7 % 736-9) MONO % (test code = 5.3 % 5905-5) EOS % (test code = 2.6 % 713-8) BASO % (test code = 0.6 % 706-2) GRAN MAT x10^3(ANC) 6.93 10*3/uL 1.88-7.09 (test code = 4564761064) IMM GRAN x10^3 (test 0.07 10*3/uL 0.00-0.06 H code = 9941738180) LYMPH x10^3 (test code 0.38 10*3/uL 1.32-3.29 L = 731-0) MONO x10^3 (test code 0.43 10*3/uL 0.33-0.92 = 742-7) EOS x10^3 (test code = 0.21 10*3/uL 0.03-0.39 711-2) BASO x10^3 (test code 0.05 10*3/uL 0.01-0.07 = 704-7) Lab Interpretation Abnormal (test code = 01134-2) [facility] LACTIC [id number] 23:29:12 Test Item Value Reference Range Interpretation Comments PH (test code = 7.32-7.42 L 0643144332) PCO2 CELIA (test code = See_Comment H [Auto mated 8809651806) message] The sy stem which generated this result transmitted reference range : 41 - 51 mmHg. The reference range was not used to interpret this result as normal/abnormal . PO2 CELIA (test code = See_Comment HH [Autom ated 1956429160) message] The sy stem which generated this result transmitted reference range : 25 - 40 mmHg. The reference range was not used to interpret this result as normal/abnormal . HCO3 CELIA (test code = See_Comment H [Auto mated 1868687198) message] The sy stem which generated this result transmitted reference range : 24 - 28 mEq/L. The reference range was not used to interpret this result as normal/abnormal . AC VBE(BEAKER) (test mEq/L code = 2832430343) THB CELIA (test code = 12.1 g/dL 12.0-16.0 9780390334) %O2HB CELIA (test code = 90.8 % 52.0-63.0 H 8233028111) %COHB CELIA (test code = 0.0 % 0.0-1.5 8815717307) %METHB CELIA (test code = 0.0 % 0.4-1.5 L 5404624854) VOL%O2 CELIA (test code = 15.5 % 6.0-12.0 H 8391945307) NA (test code = 145 mmol/L 135-145 0713418282) K+ (test code = 4.1 mmol/L 3.5-5.0 7273050111) AC CA IONZ (test code = 5.30 mg/dL 4.50-5.30 6829350058) GLUCOSE (test code = 291 mg/dL 70-110 H 3561056800) LACTIC ACID (test code 1.04 mmol/L 0.50-2.20 = 3635492755) Lab Interpretation Abnormal (test code = 84575-0) [facility] GLUCOSE (AUTOMATED)2022-01-12 17:49:50 Test Item Value Reference Range Interpretation Comments POCT GLU (test code = 7950807085) 120 mg/dL 70-110 H Lab Interpretation (test code = Abnormal 13605-8) [facility] GLUCOSE (AUTOMATED)2022-01-12 13:25:37 Test Item Value Reference Range Interpretation Comments POCT GLU (test code = 8949827710) 76 mg/dL 70-110 Lab Interpretation (test code = Normal 17260-1) [facility] GLUCOSE (AUTOMATED)2022-01-12 05:53:23 Test Item Value Reference Range Interpretation Comments POCT GLU (test code = 6101804219) 107 mg/dL 70-110 Lab Interpretation (test code = Normal 34321-5) [facility] GLUCOSE (AUTOMATED)2022-01-11 23:03:13 Test Item Value Reference Range Interpretation Comments POCT GLU (test code = 3463879974) 142 mg/dL 70-110 H Lab Interpretation (test code = Abnormal 08892-7) [facility] GLUCOSE (AUTOMATED)2022-01-11 17:22:09 Test Item Value Reference Range Interpretation Comments POCT GLU (test code = 9232842786) 106 mg/dL 70-110 Lab Interpretation (test code = Normal 40663-4) [facility] GLUCOSE (AUTOMATED)2022-01-11 13:11:20 Test Item Value Reference Range Interpretation Comments POCT GLU (test code = 8210415077) 91 mg/dL 70-110 Lab Interpretation (test code = Normal 15993-7) [facility] METABOLIC PANEL (NA, K, CL, CO2, GLUCOSE, BUN, CREATININE, CA)2022-01-11 11:52:16 Test Item Value Reference Range Interpretation Comments NA (test code = 141 mmol/L 135-145 5816377234) K (test code = 3.7 mmol/L 3.5-5.0 9458480767) CL (test code = 100 mmol/L 98-108 8987997371) CO2 TOTAL (test code 30 mmol/L 23-31 = 8603880154) AGAP (test code = 2-16 1845128694) BUN (test code = 14 mg/dL 7-23 2116165285) GLUCOSE (test code = 85 mg/dL 70-110 7175747189) CREATININE (test code 0.62 mg/dL 0.50-1.04 = 3523848145) CALCIUM (test code = 8.9 mg/dL 8.6-10.6 2346406589) eGFR (test code = mL/min/1.73m2 2786820230) JENNIFFER (test code = JENNIFFER) Association of [...] Range Interpretation Comments MAGNESIUM (test code = 1290467161) 1.9 mg/dL 1.7-2.4 Lab Interpretation (test code = Normal 57996-9) [facility] 11:36:18 Test Item Value Reference Range Interpretation Comments POCT GLU (test code = 1727616109) 95 mg/dL 70-110 Lab Interpretation (test code = Normal 10692-1) [facility] WITH [id number] 10:51:12 Test Item Value Reference Range Interpretation [...] RDW-SD (test code = 46.5 fL 39.0-49.9 12097-9) RDW-CV (test code = 14.3 % 12.0-15.5 788-0) PLT (test code = See_Comment [Automated 777-3) message] The sy stem which generated this result transmitted reference range : 166 - 358 10*3/ ?L. The reference r josselyn was not used to interpret this result as normal/abnormal . MPV (test code = 8.5 fL 9.5-12.9 L 55266-1) NRBC/100 WBC (test See_Comment [Automat ed code = 5544111585) message] The system which generated this result transmitted reference range : 0.0 - 10.0 /100 WBCs. The refer ence range was not u sed to interpret th is result as normal/abnormal . NRBC x10^3 (test code <0.01 See_Comment [Auto mated = 7213667259) message] The s ystem which generated this result transmitted reference range : 10*3/?L. The reference range was not used to interpret this result as normal/abnormal . GRAN MAT (NEUT) % 72.4 % (test code = 770-8) IMM GRAN % (test code 0.60 % = 8422255991) LYMPH % (test code = 12.0 % 736-9) MONO % (test code = 9.8 % 5905-5) EOS % (test code = 4.4 % 713-8) BASO % (test code = 0.8 % 706-2) GRAN MAT x10^3(ANC) 4.64 10*3/uL 1.88-7.09 (test code = 6463960906) IMM GRAN x10^3 (test 0.04 10*3/uL 0.00-0.06 code = 6218247240) LYMPH x10^3 (test code 0.77 10*3/uL 1.32-3.29 L = 731-0) MONO x10^3 (test code 0.63 10*3/uL 0.33-0.92 = 742-7) EOS x10^3 (test code = 0.28 10*3/uL 0.03-0.39 711-2) BASO x10^3 (test code 0.05 10*3/uL 0.01-0.07 = 704-7) Lab Interpretation Abnormal (test code = 90260-1) [facility] GLUCOSE (AUTOMATED)2022-01-11 04:16:05 Test Item Value Reference Range Interpretation Comments POCT GLU (test code = 4054771053) 100 mg/dL 70-110 Lab Interpretation (test code = Normal 28232-0) [facility] GLUCOSE (AUTOMATED)2022-01-10 22:37:14 Test Item Value Reference Range Interpretation Comments POCT GLU (test code = 0650011675) 109 mg/dL 70-110 Lab Interpretation (test code = Normal 65012-3) [facility] GLUCOSE (AUTOMATED)2022-01-10 16:49:31 Test Item Value Reference Range Interpretation Comments POCT GLU (test code = 9255494375) 151 mg/dL 70-110 H Lab Interpretation (test code = Abnormal 89662-0) [facility] GLUCOSE (AUTOMATED)2022-01-10 13:04:04 Test Item Value Reference Range Interpretation Comments POCT GLU (test code = 1790199373) 133 mg/dL 70-110 H Lab Interpretation (test code = Abnormal 69356-0) [facility] GLUCOSE (AUTOMATED)2022-01-10 10:48:27 Test Item Value Reference Range Interpretation Comments POCT GLU (test code = 9063994152) 140 mg/dL 70-110 H Lab Interpretation (test code = Abnormal 94794-6) [facility] METABOLIC PANEL (NA, K, CL, CO2, GLUCOSE, BUN, CREATININE, CA)2022-01-10 07:43:41 Test Item Value Reference Range Interpretation Comments NA (test code = 139 mmol/L 135-145 0854535995) K (test code = 4.1 mmol/L 3.5-5.0 4250426671) CL (test code = 100 mmol/L 98-108 4422584807) CO2 TOTAL (test code = 32 mmol/L 23-31 H 5799671706) AGAP (test code = 2-16 8003822988) BUN (test code = 18 mg/dL 7-23 9390017617) GLUCOSE (test code = 146 mg/dL 70-110 H 8901854356) CREATININE (test code = 0.79 mg/dL 0.50-1.04 0681677769) CALCIUM (test code = 8.7 mg/dL 8.6-10.6 4792933676) eGFR (test code = mL/min/1.73m2 9857046505) JENNIFFER (test code = JENNIFFER) Association of [...] tests). Lab Interpretation Abnormal (test code = 24215-7) [facility] Test Item Value Reference Range Interpretation Comments MAGNESIUM (test code = 2537011312) 2.1 mg/dL 1.7-2.4 Lab Interpretation (test code = Normal 11105-7) [facility] WITH [id number] 07:29:01 Test Item Value Reference Range Interpretation [...] RDW-SD (test code = 47.2 fL 39.0-49.9 52120-7) RDW-CV (test code = 14.1 % 12.0-15.5 788-0) PLT (test code = See_Comment [Automated 777-3) message] The sy stem which generated this result transmitted reference range : 166 - 358 10*3/ ?L. The reference r josselyn was not used to interpret this result as normal/abnormal . MPV (test code = 8.3 fL 9.5-12.9 L 26386-7) NRBC/100 WBC (test See_Comment [Automat ed code = 7630109276) message] The system which generated this result transmitted reference range : 0.0 - 10.0 /100 WBCs. The refer ence range was not u sed to interpret th is result as normal/abnormal . NRBC x10^3 (test code <0.01 See_Comment [Auto mated = 9360163662) message] The s ystem which generated this result transmitted reference range : 10*3/?L. The reference range was not used to interpret this result as normal/abnormal . GRAN MAT (NEUT) % 75.5 % (test code = 770-8) IMM GRAN % (test code 0.50 % = 6453663673) LYMPH % (test code = 13.6 % 736-9) MONO % (test code = 5.4 % 5905-5) EOS % (test code = 4.4 % 713-8) BASO % (test code = 0.6 % 706-2) GRAN MAT x10^3(ANC) 5.01 10*3/uL 1.88-7.09 (test code = 8202909123) IMM GRAN x10^3 (test 0.03 10*3/uL 0.00-0.06 code = 5328802365) LYMPH x10^3 (test code 0.90 10*3/uL 1.32-3.29 L = 731-0) MONO x10^3 (test code 0.36 10*3/uL 0.33-0.92 = 742-7) EOS x10^3 (test code = 0.29 10*3/uL 0.03-0.39 711-2) BASO x10^3 (test code 0.04 10*3/uL 0.01-0.07 = 704-7) Lab Interpretation Abnormal (test code = 76599-4) [facility] GLUCOSE (AUTOMATED)2022-01-10 04:49:48 Test Item Value Reference Range Interpretation Comments POCT GLU (test code = 6215685129) 150 mg/dL 70-110 H Lab Interpretation (test code = Abnormal 02297-0) [facility] GLUCOSE (AUTOMATED)2022-01-09 17:24:10 Test Item Value Reference Range Interpretation Comments POCT GLU (test code = 8987349825) 114 mg/dL 70-110 H Lab Interpretation (test code = Abnormal 38705-5) [facility] GLUCOSE (AUTOMATED)2022-01-09 12:48:19 Test Item Value Reference Range Interpretation Comments POCT GLU (test code = 5220209270) 107 mg/dL 70-110 Lab Interpretation (test code = Normal 81196-3) [facility] METABOLIC PANEL (NA, K, CL, CO2, GLUCOSE, BUN, CREATININE, CA)2022-01-09 11:11:00 Test Item Value Reference Range Interpretation Comments NA (test code = 141 mmol/L 135-145 8846441486) K (test code = 3.7 mmol/L 3.5-5.0 1193356992) CL (test code = 100 mmol/L 98-108 4037224697) CO2 TOTAL (test code = 32 mmol/L 23-31 H 3463097443) AGAP (test code = 2-16 4223136362) BUN (test code = 19 mg/dL 7-23 0028762764) GLUCOSE (test code = 115 mg/dL 70-110 H 4687454113) CREATININE (test code = 0.81 mg/dL 0.50-1.04 4791922800) CALCIUM (test code = 8.6 mg/dL 8.6-10.6 4220226627) eGFR (test code = mL/min/1.73m2 2647416173) JENNIFFER (test code = JENNIFFER) Association of [...] tests). Lab Interpretation Abnormal (test code = 19892-7) [facility] WITH [id number] 10:57:57 Test Item Value Reference Range Interpretation Comments WBC (test code = See_Comment [Automated 6090-2) message] The sy stem which generated this result transmitted reference range : 4.30 - 11.10 10*3/?L. The reference range was not used to interpret this result as normal/abnormal . RBC (test code = See_Comment L [Automated 051-8) message] The sy stem which generated this [...] RDW-SD (test code = 49.1 fL 39.0-49.9 31252-8) RDW-CV (test code = 14.6 % 12.0-15.5 788-0) PLT (test code = See_Comment [Automated 777-3) message] The sy stem which generated this result transmitted reference range : 166 - 358 10*3/ ?L. The reference r josselyn was not used to interpret this result as normal/abnormal . MPV (test code = 8.6 fL 9.5-12.9 L 35922-8) NRBC/100 WBC (test See_Comment [Automat ed code = 4812057291) message] The system which generated this result transmitted reference range : 0.0 - 10.0 /100 WBCs. The refer ence range was not u sed to interpret th is result as normal/abnormal . NRBC x10^3 (test code <0.01 See_Comment [Auto mated = 4606100226) message] The s ystem which generated this result transmitted reference range : 10*3/?L. The reference range was not used to interpret this result as normal/abnormal . GRAN MAT (NEUT) % 79.2 % (test code = 770-8) IMM GRAN % (test code 0.40 % = 0233255186) LYMPH % (test code = 10.7 % 736-9) MONO % (test code = 5.4 % 5905-5) EOS % (test code = 3.5 % 713-8) BASO % (test code = 0.8 % 706-2) GRAN MAT x10^3(ANC) 6.15 10*3/uL 1.88-7.09 (test code = 5998897747) IMM GRAN x10^3 (test 0.03 10*3/uL 0.00-0.06 code = 2618850714) LYMPH x10^3 (test code 0.83 10*3/uL 1.32-3.29 L = 731-0) MONO x10^3 (test code 0.42 10*3/uL 0.33-0.92 = 742-7) EOS x10^3 (test code = 0.27 10*3/uL 0.03-0.39 711-2) BASO x10^3 (test code 0.06 10*3/uL 0.01-0.07 = 704-7) Lab Interpretation Abnormal (test code = 92614-2) [facility] GLUCOSE (AUTOMATED)2022-01-09 10:44:16 Test Item Value Reference Range Interpretation Comments POCT GLU (test code = 7027131075) 116 mg/dL 70-110 H Lab Interpretation (test code = Abnormal 00315-4) [facility] GLUCOSE (AUTOMATED)2022-01-09 04:22:02 Test Item Value Reference Range Interpretation Comments POCT GLU (test code = 2290292044) 124 mg/dL 70-110 H Lab Interpretation (test code = Abnormal 90011-3) [facility] GLUCOSE (AUTOMATED)2022-01-08 23:21:27 Test Item Value Reference Range Interpretation Comments POCT GLU (test code = 1317777027) 122 mg/dL 70-110 H Lab Interpretation (test code = Abnormal 55843-3) [facility] GLUCOSE (AUTOMATED)2022-01-08 18:15:20 Test Item Value Reference Range Interpretation Comments POCT GLU (test code = 2435844238) 104 mg/dL 70-110 Lab Interpretation (test code = Normal 31021-2) [facility] GLUCOSE (AUTOMATED)2022-01-08 13:35:04 Test Item Value Reference Range Interpretation Comments POCT GLU (test code = 8500336324) 132 mg/dL 70-110 H Lab Interpretation (test code = Abnormal 19591-4) [facility] METABOLIC PANEL (NA, K, CL, CO2, GLUCOSE, BUN, CREATININE, CA)2022-01-08 11:08:57 Test Item Value Reference Range Interpretation Comments NA (test code = 142 mmol/L 135-145 4156680226) K (test code = 3.5 mmol/L 3.5-5.0 4975836419) CL (test code = 99 mmol/L 98-108 1316093246) CO2 TOTAL (test code = 34 mmol/L 23-31 H 5114974785) AGAP (test code = 2-16 8151616906) BUN (test code = 16 mg/dL 7-23 8651302395) GLUCOSE (test code = 131 mg/dL 70-110 H 8790582553) CREATININE (test code = 0.83 mg/dL 0.50-1.04 2843931624) CALCIUM (test code = 8.5 mg/dL 8.6-10.6 L 9236135198) eGFR (test code = mL/min/1.73m2 7104705150) JENNIFFER (test code = JENNFIFER) Association of Glomerular Filtration Rate (GFR) and [...] tests). Lab Interpretation Abnormal (test code = 39888-6) [facility] WITH [id number] 10:58:37 Test Item Value Reference Range Interpretation [...] RDW-SD (test code = 48.8 fL 39.0-49.9 31914-3) RDW-CV (test code = 14.7 % 12.0-15.5 788-0) PLT (test code = See_Comment [Automated 777-3) message] The sy stem which generated this result transmitted reference range : 166 - 358 10*3/ ?L. The reference r josselyn was not used to interpret this result as normal/abnormal . MPV (test code = 8.5 fL 9.5-12.9 L 00199-4) NRBC/100 WBC (test See_Comment [Automat ed code = 2216941750) message] The system which generated this result transmitted reference range : 0.0 - 10.0 /100 WBCs. The refer ence range was not u sed to interpret th is result as normal/abnormal . NRBC x10^3 (test code <0.01 See_Comment [Auto mated = 8482618832) message] The s ystem which generated this result transmitted reference range : 10*3/?L. The reference range was not used to interpret this result as normal/abnormal . GRAN MAT (NEUT) % 75.9 % (test code = 770-8) IMM GRAN % (test code 0.30 % = 1710281163) LYMPH % (test code = 12.3 % 736-9) MONO % (test code = 7.0 % 5905-5) EOS % (test code = 3.6 % 713-8) BASO % (test code = 0.9 % 706-2) GRAN MAT x10^3(ANC) 4.89 10*3/uL 1.88-7.09 (test code = 6733822582) IMM GRAN x10^3 (test <0.03 0.00-0.06 code = 2317156169) LYMPH x10^3 (test code 0.79 10*3/uL 1.32-3.29 L = 731-0) MONO x10^3 (test code 0.45 10*3/uL 0.33-0.92 = 742-7) EOS x10^3 (test code = 0.23 10*3/uL 0.03-0.39 711-2) BASO x10^3 (test code 0.06 10*3/uL 0.01-0.07 = 704-7) Lab Interpretation Abnormal (test code = 61511-3) [facility] GLUCOSE (AUTOMATED)2022-01-08 10:57:56 Test Item Value Reference Range Interpretation Comments POCT GLU (test code = 8167196137) 122 mg/dL 70-110 H Lab Interpretation (test code = Abnormal 65102-9) [facility] GLUCOSE (AUTOMATED)2022-01-08 05:44:22 Test Item Value Reference Range Interpretation Comments POCT GLU (test code = 2288353172) 150 mg/dL 70-110 H Lab Interpretation (test code = Abnormal 05898-7) [facility] GLUCOSE (AUTOMATED)2022-01-07 22:00:04 Test Item Value Reference Range Interpretation Comments POCT GLU (test code = 9490458611) 175 mg/dL 70-110 H Lab Interpretation (test code = Abnormal 54988-7) [facility] GLUCOSE (AUTOMATED)2022-01-07 17:25:35 Test Item Value Reference Range Interpretation Comments POCT GLU (test code = 5177988360) 149 mg/dL 70-110 H Lab Interpretation (test code = Abnormal 38870-2) [facility] [id number] 15:01:23 Test Item Value Reference Range Interpretation Comments Blood Culture-Aerobic No organisms No growth Previo us (test code = 16463-4) isolated prelim inary verified result was Culture [...] Culture-Anaerobic isolated preliminar y (test code = 33213-2) verifi ed result was Culture In Progress on 01/02/2022 at 13 CDTPrevious preliminary verified result was No growth a t 24 hours on 01/03/2022 at 10 CDTPrevious preliminary verified result was No growth a t 48 hours on 01/04/2022 at 10 CDTPrevious preliminary verified result was No growth a t 72 hours on 01/05/2022 at 10 CDT Lab Interpretation Normal (test code = 04208-1) [facility] Culture - Peripheral Vein # 15:01:23 Test Item Value Reference Range Interpretation Comments Blood Culture-Aerobic No organisms No growth Previo us (test code = 17863-1) isolated prelim inary verified result was Culture [...] Culture-Anaerobic isolated preliminar y (test code = 05713-6) verifi ed result was Culture In Progress [...] CDT Lab Interpretation Normal (test code = 13492-3) [facility] 13:20:20 Test Item Value Reference Range Interpretation Comments POCT GLU (test code = 1652881949) 153 mg/dL 70-110 H Lab Interpretation (test code = Abnormal 51496-3) [facility] METABOLIC PANEL (NA, K, CL, CO2, GLUCOSE, BUN, CREATININE, CA)2022-01-07 07:43:22 Test Item Value Reference Range Interpretation Comments NA (test code = 141 mmol/L 135-145 2949129140) K (test code = 3.8 mmol/L 3.5-5.0 6572219851) CL (test code = 101 mmol/L 98-108 0633264667) CO2 TOTAL (test code = 33 mmol/L 23-31 H 6017120172) AGAP (test code = 2-16 8616471026) BUN (test code = 13 mg/dL 7-23 7512394141) GLUCOSE (test code = 127 mg/dL 70-110 H 2575269590) CREATININE (test code = 0.89 mg/dL 0.50-1.04 0542042923) CALCIUM (test code = 8.4 mg/dL 8.6-10.6 L 3752775172) eGFR (test code = mL/min/1.73m2 2413086704) JENNIFFER (test code = JENNIFFER) Association of [...] tests). Lab Interpretation Abnormal (test code = 96606-3) [facility] with [id number] 07:29:22 Test Item Value Reference Range Interpretation [...] RDW-SD (test code = 48.2 fL 39.0-49.9 09461-3) RDW-CV (test code = 14.7 % 12.0-15.5 788-0) PLT (test code = See_Comment [Automated 777-3) message] The sy stem which generated this result transmitted reference range : 166 - 358 10*3/ ?L. The reference r jossleyn was not used to interpret this result as normal/abnormal . MPV (test code = 9.0 fL 9.5-12.9 L 50509-1) NRBC/100 WBC (test See_Comment [Automat ed code = 1512792651) message] The system which generated this result transmitted reference range : 0.0 - 10.0 /100 WBCs. The refer ence range was not u sed to interpret th is result as normal/abnormal . NRBC x10^3 (test code <0.01 See_Comment [Auto mated = 0969723356) message] The s ystem which generated this result transmitted reference range : 10*3/?L. The reference range was not used to interpret this result as normal/abnormal . GRAN MAT (NEUT) % 81.4 % (test code = 770-8) IMM GRAN % (test code 0.30 % = 6157600540) LYMPH % (test code = 10.3 % 736-9) MONO % (test code = 4.6 % 5905-5) EOS % (test code = 2.8 % 713-8) BASO % (test code = 0.6 % 706-2) GRAN MAT x10^3(ANC) 6.39 10*3/uL 1.88-7.09 (test code = 3549776130) IMM GRAN x10^3 (test <0.03 0.00-0.06 code = 1109653751) LYMPH x10^3 (test code 0.81 10*3/uL 1.32-3.29 L = 731-0) MONO x10^3 (test code 0.36 10*3/uL 0.33-0.92 = 742-7) EOS x10^3 (test code = 0.22 10*3/uL 0.03-0.39 711-2) BASO x10^3 (test code 0.05 10*3/uL 0.01-0.07 = 704-7) Lab Interpretation Abnormal (test code = 91240-5) [facility]55 Test Item Value Reference Range Interpretation Comments POCT GLU (test code = 2346187947) 125 mg/dL 70-110 H Lab Interpretation (test code = Abnormal 66653-0) [facility] [id number] 04:01:23 Test Item Value Reference Range Interpretation Comments Blood Culture-Aerobic No organisms No growth Previo us (test code = 74417-3) isolated prelim inary verified result was Culture [...] Culture-Anaerobic isolated preliminar y (test code = 31703-2) verifi ed result was Culture In Progress [...] accordingly. Lab Interpretation Normal (test code = 84091-6) [facility] [id number] 03:01:22 Test Item Value Reference Range Interpretation Comments Blood Culture-Aerobic No organisms No growth Previo us (test code = 15000-1) isolated prelim inary verified result was Culture [...] Culture-Anaerobic isolated preliminar y (test code = 27827-3) verifi ed result was Culture In Progress [...] accordingly. Lab Interpretation Normal (test code = 21141-5) [facility] GLUCOSE (AUTOMATED)2022-01-06 23:38:26 Test Item Value Reference Range Interpretation Comments POCT GLU (test code = 6561266936) 181 mg/dL 70-110 H Lab Interpretation (test code = Abnormal 68659-4) [facility] GLUCOSE (AUTOMATED)2022-01-06 22:44:50 Test Item Value Reference Range Interpretation Comments POCT GLU (test code = 5959213846) 198 mg/dL 70-110 H Lab Interpretation (test code = Abnormal 73066-5) [facility] GLUCOSE (AUTOMATED)2022-01-06 17:41:24 Test Item Value Reference Range Interpretation Comments POCT GLU (test code = 2496332411) 172 mg/dL 70-110 H Lab Interpretation (test code = Abnormal 16627-4) [facility] GLUCOSE (AUTOMATED)2022-01-06 13:48:08 Test Item Value Reference Range Interpretation Comments POCT GLU (test code = 8194256116) 175 mg/dL 70-110 H Lab Interpretation (test code = Abnormal 89958-5) [facility] METABOLIC PANEL (NA, K, CL, CO2, GLUCOSE, BUN, CREATININE, CA)2022-01-06 09:39:37 Test Item Value Reference Range Interpretation Comments NA (test code = 139 mmol/L 135-145 7383525888) K (test code = 3.6 mmol/L 3.5-5.0 0742067772) CL (test code = 104 mmol/L 98-108 4904448450) CO2 TOTAL (test code = 30 mmol/L 23-31 6205244186) AGAP (test code = 2-16 4877854483) BUN (test code = 15 mg/dL 7-23 2322445985) GLUCOSE (test code = 164 mg/dL 70-110 H 0038811762) CREATININE (test code = 0.83 mg/dL 0.50-1.04 7833348444) CALCIUM (test code = 7.9 mg/dL 8.6-10.6 L 1740141776) eGFR (test code = mL/min/1.73m2 2838319960) JENNIFFER (test code = JENNIFFER) Association of [...] tests). Lab Interpretation Abnormal (test code = 41729-8) [facility]37 Test Item Value Reference Range Interpretation Comments MAGNESIUM (test code = 2337192266) 2.5 mg/dL 1.7-2.4 H Lab Interpretation (test code = Abnormal 34704-8) [facility] 09:39:37 Test Item Value Reference Range Interpretation Comments PHOSPHORUS (test code = 1385385003) 3.8 mg/dL 2.5-5.0 Lab Interpretation (test code = Normal 84786-1) [facility] WITH [id number] 09:29:28 Test Item Value Reference Range Interpretation [...] RDW-SD (test code = 46.7 fL 39.0-49.9 08817-2) RDW-CV (test code = 14.5 % 12.0-15.5 788-0) PLT (test code = See_Comment [Automated 777-3) message] The sy stem which generated this result transmitted reference range : 166 - 358 10*3/ ?L. The reference r josselyn was not used to interpret this result as normal/abnormal . MPV (test code = 8.9 fL 9.5-12.9 L 26826-4) NRBC/100 WBC (test See_Comment [Automat ed code = 4169076053) message] The system which generated this result transmitted reference range : 0.0 - 10.0 /100 WBCs. The refer ence range was not u sed to interpret th is result as normal/abnormal . NRBC x10^3 (test code <0.01 See_Comment [Auto mated = 7457251020) message] The s ystem which generated this result transmitted reference range : 10*3/?L. The reference range was not used to interpret this result as normal/abnormal . GRAN MAT (NEUT) % 74.7 % (test code = 770-8) IMM GRAN % (test code 0.30 % = 5502195285) LYMPH % (test code = 15.5 % 736-9) MONO % (test code = 5.5 % 5905-5) EOS % (test code = 3.3 % 713-8) BASO % (test code = 0.7 % 706-2) GRAN MAT x10^3(ANC) 4.34 10*3/uL 1.88-7.09 (test code = 7059487169) IMM GRAN x10^3 (test <0.03 0.00-0.06 code = 7092007728) LYMPH x10^3 (test code 0.90 10*3/uL 1.32-3.29 L = 731-0) MONO x10^3 (test code 0.32 10*3/uL 0.33-0.92 L = 742-7) EOS x10^3 (test code = 0.19 10*3/uL 0.03-0.39 711-2) BASO x10^3 (test code 0.04 10*3/uL 0.01-0.07 = 704-7) Lab Interpretation Abnormal (test code = 54901-9) [facility] GLUCOSE (AUTOMATED)2022-01-05 20:46:31 Test Item Value Reference Range Interpretation Comments POCT GLU (test code = 0733201735) 175 mg/dL 70-110 H Lab Interpretation (test code = Abnormal 98662-8) [facility] GLUCOSE (AUTOMATED)2022-01-05 17:13:26 Test Item Value Reference Range Interpretation Comments POCT GLU (test code = 2301919750) 233 mg/dL 70-110 H Lab Interpretation (test code = Abnormal 70138-5) [facility] GLUCOSE (AUTOMATED)2022-01-05 13:24:19 Test Item Value Reference Range Interpretation Comments POCT GLU (test code = 5665794744) 208 mg/dL 70-110 H Lab Interpretation (test code = Abnormal 88763-6) [facility] METABOLIC PANEL (NA, K, CL, CO2, GLUCOSE, BUN, CREATININE, CA)2022-01-05 09:23:42 Test Item Value Reference Range Interpretation Comments NA (test code = 139 mmol/L 135-145 2965547270) K (test code = 3.7 mmol/L 3.5-5.0 0618793845) CL (test code = 102 mmol/L 98-108 1138819880) CO2 TOTAL (test code = 31 mmol/L 23-31 7126033648) AGAP (test code = 2-16 4901688515) BUN (test code = 19 mg/dL 7-23 2394171532) GLUCOSE (test code = 166 mg/dL 70-110 H 1030424321) CREATININE (test code = 0.85 mg/dL 0.50-1.04 1918200620) CALCIUM (test code = 8.1 mg/dL 8.6-10.6 L 6420329634) eGFR (test code = mL/min/1.73m2 4649782420) JENNIFFER (test code = JENNIFFER) Association of [...] tests). Lab Interpretation Abnormal (test code = 52471-7) [facility]42 Test Item Value Reference Range Interpretation Comments MAGNESIUM (test code = 4932434045) 2.3 mg/dL 1.7-2.4 Lab Interpretation (test code = Normal 16464-0) [facility]:23:42 Test Item Value Reference Range Interpretation Comments PHOSPHORUS (test code = 2995768089) 3.5 mg/dL 2.5-5.0 Lab Interpretation (test code = Normal 98743-8) [facility] [id number] 09:15:04 Test Item Value Reference Range Interpretation [...] RDW-SD (test code = 46.4 fL 39.0-49.9 29082-1) RDW-CV (test code = 14.4 % 12.0-15.5 788-0) PLT (test code = See_Comment [Automated 777-3) message] The sy stem which generated this result transmitted reference range : 166 - 358 10*3/ ?L. The reference r josselyn was not used to interpret this result as normal/abnormal . MPV (test code = 8.9 fL 9.5-12.9 L 68050-7) NRBC/100 WBC (test See_Comment [Automat ed code = 4701134007) message] The system which generated this result transmitted reference range : 0.0 - 10.0 /100 WBCs. The refer ence range was not u sed to interpret th is result as normal/abnormal . NRBC x10^3 (test code <0.01 See_Comment [Auto mated = 1139943986) message] The s ystem which generated this result transmitted reference range : 10*3/?L. The reference range was not used to interpret this result as normal/abnormal . GRAN MAT (NEUT) % 71.1 % (test code = 770-8) IMM GRAN % (test code 0.30 % = 2965722791) LYMPH % (test code = 17.7 % 736-9) MONO % (test code = 7.2 % 5905-5) EOS % (test code = 2.6 % 713-8) BASO % (test code = 1.1 % 706-2) GRAN MAT x10^3(ANC) 4.43 10*3/uL 1.88-7.09 (test code = 4503847408) IMM GRAN x10^3 (test <0.03 0.00-0.06 code = 0604888102) LYMPH x10^3 (test code 1.10 10*3/uL 1.32-3.29 L = 731-0) MONO x10^3 (test code 0.45 10*3/uL 0.33-0.92 = 742-7) EOS x10^3 (test code = 0.16 10*3/uL 0.03-0.39 711-2) BASO x10^3 (test code 0.07 10*3/uL 0.01-0.07 = 704-7) Lab Interpretation Abnormal (test code = 59617-0) [facility] GLUCOSE (AUTOMATED)2022-01-05 05:12:00 Test Item Value Reference Range Interpretation Comments POCT GLU (test code = 1943814592) 178 mg/dL 70-110 H Lab Interpretation (test code = Abnormal 78583-6) [facility] GLUCOSE (AUTOMATED)2022-01-04 22:12:41 Test Item Value Reference Range Interpretation Comments POCT GLU (test code = 1782360907) 154 mg/dL 70-110 H Lab Interpretation (test code = Abnormal 84988-5) [facility] GLUCOSE (AUTOMATED)2022-01-04 17:15:55 Test Item Value Reference Range Interpretation Comments POCT GLU (test code = 4157128728) 204 mg/dL 70-110 H Lab Interpretation (test code = Abnormal 38591-0) [id number] 13:56:02 Test Item Value Reference Range Interpretation [...] Trough Level - Please draw trough at 69698641-01-15 11:47:19 Test Item Value Reference Range Interpretation Comments VANCO TROUGH (test code 11.3 ug/mL 10.0-20.0 = 0292146221) JENNIFFER (test code = JENNIFFER) Toxic Range: ?>20 ug/mL 15-20 ug/mL is recommended for severe infection or when Vancomycin TORITO is greater than or equal to 2. Lab Interpretation (test Normal code = 29266-7) [facility] GLUCOSE (AUTOMATED)2022-01-04 11:19:57 Test Item Value Reference Range Interpretation Comments POCT GLU (test code = 5621557990) 189 mg/dL 70-110 H Lab Interpretation (test code = Abnormal 15523-7) [facility] (NA, K, CL, CO2, GLUCOSE, BUN, CREATININE, CA)2022-01-04 11:17:16 Test Item Value Reference Range Interpretation Comments NA (test code = 140 mmol/L 135-145 4200360665) K (test code = 3.3 mmol/L 3.5-5.0 L 6449010903) CL (test code = 99 mmol/L 98-108 1610081095) CO2 TOTAL (test code = 35 mmol/L 23-31 H 5472186352) AGAP (test code = 2-16 3488004307) BUN (test code = 18 mg/dL 7-23 2136843874) GLUCOSE (test code = 172 mg/dL 70-110 H 9799566488) CREATININE (test code = 0.89 mg/dL 0.50-1.04 2671435072) CALCIUM (test code = 8.2 mg/dL 8.6-10.6 L 2479646646) eGFR (test code = mL/min/1.73m2 8873341473) JENNIFFER (test code = JENNIFFER) Association of [...] tests). Lab Interpretation Abnormal (test code = 71524-7) [facility]:17:16 Test Item Value Reference Range Interpretation Comments MAGNESIUM (test code = 0936865441) 2.3 mg/dL 1.7-2.4 Lab Interpretation (test code = Normal 84492-0) [facility] 11:17:16 Test Item Value Reference Range Interpretation Comments PHOSPHORUS (test code = 9690616071) 2.7 mg/dL 2.5-5.0 Lab Interpretation (test code = Normal 60739-1) [facility] WITH [id number] 11:03:17 Test Item Value Reference Range Interpretation [...] RDW-SD (test code = 46.0 fL 39.0-49.9 42066-5) RDW-CV (test code = 14.4 % 12.0-15.5 788-0) PLT (test code = See_Comment [Automated 777-3) message] The sy stem which generated this result transmitted reference range : 166 - 358 10*3/ ?L. The reference r josselyn was not used to interpret this result as normal/abnormal . MPV (test code = 9.1 fL 9.5-12.9 L 24473-2) NRBC/100 WBC (test See_Comment [Automat ed code = 6921028721) message] The system which generated this result transmitted reference range : 0.0 - 10.0 /100 WBCs. The refer ence range was not u sed to interpret th is result as normal/abnormal . NRBC x10^3 (test code <0.01 See_Comment [Auto mated = 7411037163) message] The s ystem which generated this result transmitted reference range : 10*3/?L. The reference range was not used to interpret this result as normal/abnormal . GRAN MAT (NEUT) % 78.8 % (test code = 770-8) IMM GRAN % (test code 0.50 % = 4967808958) LYMPH % (test code = 11.8 % 736-9) MONO % (test code = 6.8 % 5905-5) EOS % (test code = 1.4 % 713-8) BASO % (test code = 0.7 % 706-2) GRAN MAT x10^3(ANC) 6.65 10*3/uL 1.88-7.09 (test code = 3025686254) IMM GRAN x10^3 (test 0.04 10*3/uL 0.00-0.06 code = 7287670488) LYMPH x10^3 (test code 1.00 10*3/uL 1.32-3.29 L = 731-0) MONO x10^3 (test code 0.57 10*3/uL 0.33-0.92 = 742-7) EOS x10^3 (test code = 0.12 10*3/uL 0.03-0.39 711-2) BASO x10^3 (test code 0.06 10*3/uL 0.01-0.07 = 704-7) Lab Interpretation Abnormal (test code = 78834-7) [facility] GLUCOSE (AUTOMATED)2022-01-04 06:29:40 Test Item Value Reference Range Interpretation Comments POCT GLU (test code = 8285685646) 211 mg/dL 70-110 H Lab Interpretation (test code = Abnormal 59926-1) [facility] GLUCOSE (AUTOMATED)2022-01-03 21:23:29 Test Item Value Reference Range Interpretation Comments POCT GLU (test code = 255 mg/dL 70-110 H Notifi ed Provider 5882499260) Lab Interpretation (test Abnormal code = 89648-0) [facility] GLUCOSE (AUTOMATED)2022-01-03 16:51:46 Test Item Value Reference Range Interpretation Comments POCT GLU (test code = 332 mg/dL 70-110 H Notifi ed Provider [id number]) Lab Interpretation (test Abnormal code = 53351-8) [facility] 13:01:05 Test Item Value Reference Range Interpretation Comments POCT GLU (test code = 3735863473) 332 mg/dL 70-110 H Lab Interpretation (test code = Abnormal 94716-7) [facility] + Lactic [id number] 10:21:11 Test Item Value Reference Range Interpretation Comments PH (test code = 2) 7.35-7.45 PCO2 (test code = See_Comment H [Automate d 1351374935) message] The sy stem which generated this result transmitted reference range : 35 - 45 mmHg. The reference range was not used to interpret this result as normal/abnormal . PO2 (test code = See_Comment [Automated 4177755137) message] The sy stem which generated this result transmitted reference range : 80 - 100 mmHg. The reference range was not used to interpret this result as normal/abnormal . HCO3 (test code = See_Comment H [Automate d 7597300816) message] The sy stem which generated this result transmitted reference range : 22 - 26 mEq/L. The reference range was not used to interpret this result as normal/abnormal . BE (test code = See_Comment H [Automated 4185066740) message] The sy stem which generated this result transmitted reference range : -3.0 - 3.0 mEq/ L. The reference r josselyn was not used to interpret this result as normal/abnormal . THB (test code = 10.1 g/dL 12.0-16.0 L 8336204114) %O2HB (test code = 95.5 % 94.0-99.0 1110040781) %COHB ART (test code = 0.3 % 0.0-1.5 0882948488) %METHB ART (test code = 0.1 % 0.4-1.5 L 2999922860) VOL%O2 ART (test code = 13.7 % 15.0-23.0 L 5282048961) NA (test code = 138 mmol/L 135-145 9538466456) K+ (test code = 4.1 mmol/L 3.5-5.0 0509367721) AC CA IONZ (test code = 4.50 mg/dL 4.50-5.30 4475049424) GLUCOSE (test code = 325 mg/dL 70-110 H 4867516059) LACTIC ACID (test code 1.27 mmol/L 0.50-2.20 = 7061385028) Lab Interpretation Abnormal (test code = 92110-9) [facility] 10:18:30 Test Item Value Reference Range Interpretation Comments POCT GLU (test code = 0962110705) 338 mg/dL 70-110 H Lab Interpretation (test code = Abnormal 60819-8) [facility] METABOLIC PANEL (NA, K, CL, CO2, GLUCOSE, BUN, CREATININE, CA)2022-01-03 09:15:37 Test Item Value Reference Range Interpretation Comments NA (test code = 141 mmol/L 135-145 4928586614) K (test code = 4.3 mmol/L 3.5-5.0 2076058130) CL (test code = 103 mmol/L 98-108 7518938862) CO2 TOTAL (test code = 34 mmol/L 23-31 H 0555894146) AGAP (test code = 2-16 8501287038) BUN (test code = 19 mg/dL 7-23 6761028554) GLUCOSE (test code = 295 mg/dL 70-110 H 7653392052) CREATININE (test code = 0.80 mg/dL 0.50-1.04 2045499396) CALCIUM (test code = 7.9 mg/dL 8.6-10.6 L 5080052436) eGFR (test code = mL/min/1.73m2 3506167854) JENNIFFER (test code = JENNIFFER) Association of [...] tests). Lab Interpretation Abnormal (test code = 70844-8) [facility]:15:12 Test Item Value Reference Range Interpretation Comments MAGNESIUM (test code = 1060044273) 2.3 mg/dL 1.7-2.4 Lab Interpretation (test code = Normal 32950-3) [facility] WITH [id number] 09:02:53 Test Item Value Reference Range Interpretation Comments WBC (test code = See_Comment [Automated 8490-2) message] The sy stem which generated this result transmitted reference range : 4.30 - 11.10 10*3/?L. The reference range was not used to interpret this result as normal/abnormal . RBC (test code = See_Comment L [Automated 436-8) message] The sy stem which generated this [...] RDW-SD (test code = 46.8 fL 39.0-49.9 10489-3) RDW-CV (test code = 14.3 % 12.0-15.5 788-0) PLT (test code = See_Comment [Automated 777-3) message] The sy stem which generated this result transmitted reference range : 166 - 358 10*3/ ?L. The reference r josselyn was not used to interpret this result as normal/abnormal . MPV (test code = 9.1 fL 9.5-12.9 L 76446-5) NRBC/100 WBC (test See_Comment [Automat ed code = 4449432874) message] The system which generated this result transmitted reference range : 0.0 - 10.0 /100 WBCs. The refer ence range was not u sed to interpret th is result as normal/abnormal . NRBC x10^3 (test code <0.01 See_Comment [Auto mated = 2589464436) message] The s ystem which generated this result transmitted reference range : 10*3/?L. The reference range was not used to interpret this result as normal/abnormal . GRAN MAT (NEUT) % 86.9 % (test code = 770-8) IMM GRAN % (test code 0.50 % = 9891731310) LYMPH % (test code = 6.5 % 736-9) MONO % (test code = 5.2 % 5905-5) EOS % (test code = 0.6 % 713-8) BASO % (test code = 0.3 % 706-2) GRAN MAT x10^3(ANC) 8.30 10*3/uL 1.88-7.09 H (test code = 2072881776) IMM GRAN x10^3 (test 0.05 10*3/uL 0.00-0.06 code = 6936480742) LYMPH x10^3 (test code 0.62 10*3/uL 1.32-3.29 L = 731-0) MONO x10^3 (test code 0.50 10*3/uL 0.33-0.92 = 742-7) EOS x10^3 (test code = 0.06 10*3/uL 0.03-0.39 711-2) BASO x10^3 (test code 0.03 10*3/uL 0.01-0.07 = 704-7) Lab Interpretation Abnormal (test code = 90389-1) [facility] GLUCOSE (AUTOMATED)2022-01-03 04:48:55 Test Item Value Reference Range Interpretation Comments POCT GLU (test code = 5433163719) 258 mg/dL 70-110 H Lab Interpretation (test code = Abnormal 74582-6) [facility] GLUCOSE (AUTOMATED)2022-01-02 22:17:43 Test Item Value Reference Range Interpretation Comments POCT GLU (test code = 274 mg/dL 70-110 H Notifi ed Provider 1253950059) Lab Interpretation (test Abnormal code = 07390-1) [facility] GLUCOSE (AUTOMATED)2022-01-02 16:29:06 Test Item Value Reference Range Interpretation Comments POCT GLU (test code = 321 mg/dL 70-110 H Notifi ed Provider [id number]) Lab Interpretation (test Abnormal code = 65438-7) [facility] 15:12:15 Test Item Value Reference Range Interpretation Comments HGB A1C (test code = 10.4 % 4.0-5.7 H 4548-4) JENNIFFER (test code = JENNIFFER) Reference RangesNormal: <5.7%Prediabetes: 5.7 - 6.4%Diabetes: > 6.5% Lab Interpretation (test Abnormal code = 95514-8) [facility] Lactic [id number] 12:41:39 Test Item Value Reference Range Interpretation Comments PH (test code = 2) 7.35-7.45 L PCO2 (test code = See_Comment H [Automate d 8691583455) message] The sy stem which generated this result transmitted reference range : 35 - 45 mmHg. The reference range was not used to interpret this result as normal/abnormal . PO2 (test code = See_Comment H [Automated 9686095954) message] The sy stem which generated this result transmitted reference range : 80 - 100 mmHg. The reference range was not used to interpret this result as normal/abnormal . HCO3 (test code = See_Comment [Automate d 8230326654) message] The sy stem which generated this result transmitted reference range : 22 - 26 mEq/L. The reference range was not used to interpret this result as normal/abnormal . BE (test code = See_Comment [Automated 2529198116) message] The sy stem which generated this result transmitted reference range : -3.0 - 3.0 mEq/ L. The reference r josselyn was not used to interpret this result as normal/abnormal . THB (test code = 10.0 g/dL 12.0-16.0 L 5866969673) %O2HB (test code = 97.7 % 94.0-99.0 5852104372) %COHB ART (test code = 0.3 % 0.0-1.5 0606134436) %METHB ART (test code = 0.2 % 0.4-1.5 L 2462683010) VOL%O2 ART (test code = 14.0 % 15.0-23.0 L 1636947135) NA (test code = 137 mmol/L 135-145 7885463099) K+ (test code = 5.2 mmol/L 3.5-5.0 H 9578262475) AC CA IONZ (test code = 4.60 mg/dL 4.50-5.30 8137407706) GLUCOSE (test code = 306 mg/dL 70-110 H 7308228485) LACTIC ACID (test code 0.77 mmol/L 0.50-2.20 = 4275821717) Lab Interpretation Abnormal (test code = 98857-1) [facility] 12:28:29 Test Item Value Reference Range Interpretation Comments POCT GLU (test code = 362 mg/dL 70-110 H Notifi ed Provider 2546396628) Lab Interpretation (test Abnormal code = 59340-1) [facility] Metabolic Panel (NA, K, CL, CO2, Glucose, BUN, Creatinine, CA)2022-01-02 11:02:42 Test Item Value Reference Range Interpretation Comments NA (test code = 138 mmol/L 135-145 3640130819) K (test code = 5.3 mmol/L 3.5-5.0 H 4109443241) CL (test code = 102 mmol/L 98-108 0330791313) CO2 TOTAL (test code = 29 mmol/L 23-31 2524370310) AGAP (test code = 2-16 5826852957) BUN (test code = 17 mg/dL 7-23 9352951440) GLUCOSE (test code = 343 mg/dL 70-110 H 9525459110) CREATININE (test code = 0.81 mg/dL 0.50-1.04 4319914696) CALCIUM (test code = 8.1 mg/dL 8.6-10.6 L [id number]) eGFR (test code = mL/min/1.73m2 6811887656) JENNIFFER (test code = JENNIFFER) Association of [...] tests). Lab Interpretation Abnormal (test code = 53283-8) [facility] with [id number] 10:52:23 Test Item Value Reference Range Interpretation [...] RDW-SD (test code = 49.3 fL 39.0-49.9 51230-9) RDW-CV (test code = 14.7 % 12.0-15.5 788-0) PLT (test code = See_Comment [Automated 777-3) message] The system which generated this result transmit alden reference range : 166 - 358 10*3/ ?L. The reference range was not u sed to interpret th is result as normal/abnormal . MPV (test code = 9.8 fL 9.5-12.9 02737-5) NRBC/100 WBC (test See_Comment [Automat ed code = 6407216186) message] The system which generated this result transmit alden reference range : 0.0 - 10.0 /100 WBCs. The reference range was not used to interpret this result as normal/abnormal . NRBC x10^3 (test code <0.01 See_Comment [Auto mated = 0290034147) message] The system which generated this result transmit alden reference range : 10*3/?L. The reference range was not used to interpret this result as normal/abnormal . GRAN MAT (NEUT) % 90.3 % (test code = 770-8) IMM GRAN % (test code 1.00 % = 8083338980) LYMPH % (test code = 4.0 % 736-9) MONO % (test code = 4.0 % 5905-5) EOS % (test code = 0.3 % 713-8) BASO % (test code = 0.4 % 706-2) GRAN MAT x10^3(ANC) 13.28 10*3/uL 1.88-7.09 H (test code = 8955314927) IMM GRAN x10^3 (test 0.15 10*3/uL 0.00-0.06 H code = 7325642623) LYMPH x10^3 (test code 0.59 10*3/uL 1.32-3.29 L = 731-0) MONO x10^3 (test code 0.59 10*3/uL 0.33-0.92 = 742-7) EOS x10^3 (test code = 0.04 10*3/uL 0.03-0.39 711-2) BASO x10^3 (test code 0.06 10*3/uL 0.01-0.07 = 704-7) Lab Interpretation Abnormal (test code = 67470-6) [facility] 10:20:11 Test Item Value Reference Range Interpretation Comments PH (test code = 2) 7.35-7.45 LL PCO2 (test code = See_Comment H [Automate d message] 9159658564) The system [employer] generated this result transmit alden reference range : 35 - 45 mmHg. The reference range was not used to interpret this result as normal/abnormal . PO2 (test code = See_Comment H [Automated message] 6546925131) The system [employer] generated this result transmit alden reference range : 80 - 100 mmHg. The reference range was not used to interpret this result as normal/abnormal . HCO3 (test code = See_Comment [Automate d message] 7106389071) The system [employer] generated this result transmit alden reference range : 22 - 26 mEq/L. The reference range was not used to interpret this result as normal/abnormal . BE (test code = See_Comment L [Automated message] 9648324539) The system [employer] generated this result transmit alden reference range : -3.0 - 3.0 mEq/ L. The reference r josselyn was not used to interpret this result as normal/abnormal . THB (test code = 10.9 g/dL 12.0-16.0 L 5065507245) %O2HB (test code = 97.4 % 94.0-99.0 8586541048) %COHB ART (test code = 0.3 % 0.0-1.5 7420174757) %METHB ART (test code = 0.1 % 0.4-1.5 L 2220869344) VOL%O2 ART (test code = 15.1 % 15.0-23.0 8278677059) NA (test code = 136 mmol/L 135-145 8813403026) K+ (test code = 5.5 mmol/L 3.5-5.0 H 5025528732) AC CA IONZ (test code = 4.70 mg/dL 4.50-5.30 2438190847) GLUCOSE (test code = 348 mg/dL 70-110 H 1051871322) Lab Interpretation Abnormal (test code = 80206-2) [facility] [id number] 03:01:55 Test Item Value Reference Interpretation Comments Range TROPONIN I (test 0.001 ng/mL See_Comment [Automated code = 8607758643) message] The system which generated this result [...] biotin. Lab Interpretation Normal (test code = 83186-5) [facility] [id number] 02:58:58 Test Item Value Reference Range Interpretation Comments NT-proBNP (test code 183 pg/mL See_Comment H [Autom ated = 1188518840) message] The system which generated this result transmitted reference range : <=125. The reference range was not used to interpret this result as normal/abnormal . JENNIFFER (test code = JENNIFFER) Biotin has been reported to cause a negative bias, interpret results relative to patient's use of biotin. Lab Interpretation Abnormal (test code = 07925-1) [facility]. METABOLIC PANEL (46540)2022-01-02 02:50:56 Test Item Value Reference Range Interpretation Comments NA (test code = 137 mmol/L 135-145 7181494457) K (test code = 4.6 mmol/L 3.5-5.0 2120403862) CL (test code = 103 mmol/L 98-108 3621034984) CO2 TOTAL (test code = 26 mmol/L 23-31 0206450201) AGAP (test code = 2-16 5341202941) BUN (test code = 20 mg/dL 7-23 9486143333) GLUCOSE (test code = 310 mg/dL 70-110 H 2414602283) CREATININE (test code = 1.14 mg/dL 0.50-1.04 H 8857409975) TOTAL BILI (test code = 0.3 mg/dL 0.1-1.0 8721251560) CALCIUM (test code = 8.1 mg/dL 8.6-10.6 L 9685765312) T PROTEIN (test code = 6.6 g/dL 6.3-8.2 1854069881) ALBUMIN (test code = 3.8 g/dL 3.5-5.0 1167136958) ALK PHOS (test code = 143 U/L 34-122 H 6378798882) ALTv (test code = 46 U/L 5-35 H 1742-6) AST(SGOT) (test code = 81 U/L 13-40 H 8300473958) eGFR (test code = mL/min/1.73m2 9849088332) JENNIFFER (test code = JENNIFFER) Association of [...] tests). Lab Interpretation Abnormal (test code = 41625-1) [facility] WITH [id number] 02:39:55 Test Item Value Reference Range Interpretation Comments WBC (test code = See_Comment H [Automated 7790-2) message] The system which generated this result transmit alden reference range : 4.30 - 11.10 10*3/?L. The reference range was not used to interpret this result as normal/abnormal . RBC (test code = See_Comment L [Automated 899-8) message] The system which generated this result [...] RDW-SD (test code = 49.2 fL 39.0-49.9 24409-5) RDW-CV (test code = 14.8 % 12.0-15.5 788-0) PLT (test code = See_Comment [Automated 777-3) message] The system which generated this result transmit alden reference range : 166 - 358 10*3/ ?L. The reference range was not u sed to interpret th is result as normal/abnormal . MPV (test code = 10.0 fL 9.5-12.9 98580-4) NRBC/100 WBC (test See_Comment [Automat ed code = 5915926863) message] The system which generated this result transmit alden reference range : 0.0 - 10.0 /100 WBCs. The reference range was not used to interpret this result as normal/abnormal . NRBC x10^3 (test code <0.01 See_Comment [Auto mated = 1803136710) message] The system which generated this result transmit alden reference range : 10*3/?L. The reference range was not used to interpret this result as normal/abnormal . GRAN MAT (NEUT) % 85.4 % (test code = 770-8) IMM GRAN % (test code 0.60 % = 4662569199) LYMPH % (test code = 6.4 % 736-9) MONO % (test code = 5.5 % 5905-5) EOS % (test code = 1.6 % 713-8) BASO % (test code = 0.5 % 706-2) GRAN MAT x10^3(ANC) 10.20 10*3/uL 1.88-7.09 H (test code = 2696275401) IMM GRAN x10^3 (test 0.07 10*3/uL 0.00-0.06 H code = 3667698545) LYMPH x10^3 (test code 0.76 10*3/uL 1.32-3.29 L = 731-0) MONO x10^3 (test code 0.66 10*3/uL 0.33-0.92 = 742-7) EOS x10^3 (test code = 0.19 10*3/uL 0.03-0.39 711-2) BASO x10^3 (test code 0.06 10*3/uL 0.01-0.07 = 704-7) Lab Interpretation Abnormal (test code = 39317-0) [facility] [id number] 04:57:10 Test Item Value Reference Interpretation Comments Range TROPONIN I (test 0.001 ng/mL See_Comment [Automated code = 4400640593) message] The system which generated this result [...] biotin. Lab Interpretation Normal (test code = 14622-2) [facility] [id number] 04:53:49 Test Item Value Reference Range Interpretation Comments NT-proBNP (test code 79 pg/mL See_Comment [Autom ated = 0161820976) message] The system which generated this result transmitted reference range : <=125. The reference range was not used to interpret this result as normal/abnormal . JENNIFFER (test code = JENNIFFER) Biotin has been reported to cause a negative bias, interpret results relative to patient's use of biotin. Lab Interpretation Normal (test code = 48949-2) [facility]. METABOLIC PANEL (66182)2021-12-09 04:46:26 Test Item Value Reference Range Interpretation Comments NA (test code = 138 mmol/L 135-145 1541123481) K (test code = 4.4 mmol/L 3.5-5.0 4231971854) CL (test code = 95 mmol/L 98-108 L 9420760078) CO2 TOTAL (test code = 35 mmol/L 23-31 H 9720225994) AGAP (test code = 2-16 3422795538) BUN (test code = 16 mg/dL 7-23 1071759575) GLUCOSE (test code = 276 mg/dL 70-110 H 2006243826) CREATININE (test code = 0.89 mg/dL 0.50-1.04 5027013651) TOTAL BILI (test code = 0.5 mg/dL 0.1-1.7 7188783513) CALCIUM (test code = 9.1 mg/dL 8.6-10.6 7067542836) T PROTEIN (test code = 7.0 g/dL 6.3-8.2 3406268581) ALBUMIN (test code = 4.2 g/dL 3.5-5.0 2794953107) ALK PHOS (test code = 141 U/L 34-122 H 8177345468) ALTv (test code = 65 U/L 5-35 H 1742-6) AST(SGOT) (test code = 81 U/L 13-40 H 0061512523) eGFR (test code = mL/min/1.73m2 7876425227) JENNIFFER (test code = JENNIFFER) Association of [...] tests). Lab Interpretation Abnormal (test code = 68609-3) [facility] 04:46:26 Test Item Value Reference Range Interpretation Comments LIPASE (test code = 3503139863) 82 U/L 0-220 Lab Interpretation (test code = Normal 55777-7) [facility] [id number] 04:27:44 Test Item Value Reference Range Interpretation Comments WBC (test code = See_Comment [Automated 8490-2) message] The sy stem which generated this [...] RDW-SD (test code = 46.9 fL 39.0-49.9 08160-2) RDW-CV (test code = 14.2 % 12.0-15.5 788-0) PLT (test code = See_Comment [Automated 777-3) message] The sy stem which generated this result transmitted reference range : 166 - 358 10*3/ ?L. The reference r josselyn was not used to interpret this result as normal/abnormal . MPV (test code = 9.0 fL 9.5-12.9 L 95095-1) NRBC/100 WBC (test See_Comment [Automat ed code = 2848589060) message] The system which generated this result transmitted reference range : 0.0 - 10.0 /100 WBCs. The refer ence range was not u sed to interpret th is result as normal/abnormal . NRBC x10^3 (test code <0.01 See_Comment [Auto mated = 6264539816) message] The s ystem which generated this result transmitted reference range : 10*3/?L. The reference range was not used to interpret this result as normal/abnormal . GRAN MAT (NEUT) % 79.4 % (test code = 770-8) IMM GRAN % (test code 0.60 % = 6565854203) LYMPH % (test code = 10.9 % 736-9) MONO % (test code = 5.7 % 5905-5) EOS % (test code = 2.7 % 713-8) BASO % (test code = 0.7 % 706-2) GRAN MAT x10^3(ANC) 7.19 10*3/uL 1.88-7.09 H (test code = 5455618148) IMM GRAN x10^3 (test 0.05 10*3/uL 0.00-0.06 code = 6480943990) LYMPH x10^3 (test code 0.99 10*3/uL 1.32-3.29 L = 731-0) MONO x10^3 (test code 0.52 10*3/uL 0.33-0.92 = 742-7) EOS x10^3 (test code = 0.24 10*3/uL 0.03-0.39 711-2) BASO x10^3 (test code 0.06 10*3/uL 0.01-0.07 = 704-7) Lab Interpretation Abnormal (test code = 14516-8) [facility] GLUCOSE (AUTOMATED)2021-09-23 17:25:54 Test Item Value Reference Range Interpretation Comments POCT GLU (test code = 8229223184) 234 mg/dL 70-110 H Lab Interpretation (test code = Abnormal 64144-0) [facility]21-09-23 13:58:43 Test Item Value Reference Range Interpretation Comments POCT GLU (test code = 4848344855) 202 mg/dL 70-110 H Lab Interpretation (test code = Abnormal 90847-8) [facility] (NA, K, CL, CO2, GLUCOSE, BUN, CREATININE, CA)2021-09-23 11:51:27 Test Item Value Reference Range Interpretation Comments NA (test code = 139 mmol/L 135-145 3357220605) K (test code = 3.9 mmol/L 3.5-5.0 2987213515) CL (test code = 93 mmol/L 98-108 L 0369205005) CO2 TOTAL (test code = 40 mmol/L 23-31 H 9444768285) AGAP (test code = 2-16 5956840744) BUN (test code = 26 mg/dL 7-23 H 1574476818) GLUCOSE (test code = 223 mg/dL 70-110 H 6174786604) CREATININE (test code = 0.96 mg/dL 0.50-1.04 4285918428) CALCIUM (test code = 9.2 mg/dL 8.6-10.6 3293539291) eGFR (test code = mL/min/1.73m2 2984639071) JENNIFFER (test code = JENNIFFER) Association of [...] tests). Lab Interpretation Abnormal (test code = 52754-9) [facility] WITHOUT [id number] 10:53:54 Test Item Value Reference Range Interpretation Comments WBC (test code = 6690-2) See_Comment H [A utomated message] The system End[employer] generated this result transmit alden reference range : 4.30 - 11.10 10*3/?L. The reference range was not used to interpret this result as normal/abnormal . RBC (test code = 789-8) See_Comment L [Au tomated message] The system [employer] generated this result transmit alden reference range [...] 777-3) See_Comment [Au tomated message] The system [employer] generated this result transmit alden reference range : 166 - 358 10*3/?L. The reference range was not used to interpret this result as normal/abnormal . MPV (test code = 9.2 fL 9.5-12.9 L 49951-3) RDW-CV (test code = 13.5 % 12.0-15.5 788-0) RDW-SD (test code = 44.3 fL 39.0-49.9 73995-7) NRBC x10^3 (test code = <0.01 See_Comment [Au tomated message] 9583519362) The system [employer] generated this result transmit alden reference range : 10*3/?L. The reference range was not used to interpret this result as normal/abnormal . NRBC/100 WBC (test code See_Comment [Au tomated message] = 4588472590) The system [employer] generated this result transmit alden reference range : 0.0 - 10.0 /100 WBC s. The reference r josselyn was not used to interpret this result as normal/abnormal . IPF % (test code = 0333697891) Lab Interpretation (test Abnormal code = 74764-8) [facility] GLUCOSE (AUTOMATED)2021-09-23 10:17:17 Test Item Value Reference Range Interpretation Comments POCT GLU (test code = 9280153456) 217 mg/dL 70-110 H Lab Interpretation (test code = Abnormal 16715-1) [facility] GLUCOSE (AUTOMATED)2021-09-23 05:44:27 Test Item Value Reference Range Interpretation Comments POCT GLU (test code = 9141057894) 338 mg/dL 70-110 H Lab Interpretation (test code = Abnormal 49172-6) [facility] GLUCOSE (AUTOMATED)2021-09-23 02:18:55 Test Item Value Reference Range Interpretation Comments POCT GLU (test code = 4188003999) 365 mg/dL 70-110 H Lab Interpretation (test code = Abnormal 00483-0) [facility]-23 00:11:44 Test Item Value Reference Range Interpretation Comments LVOT stroke volume (test 68.50 cm3 code = 5739841746) EF(Teich) (test code = 68.30 % 7562068830) LVIDD (test code = 4.00 cm 9486526824) LVIDS (test code = 2.49 cm 8838624335) IVS (test code = 1.07 cm 4676566837) LVPWD (test code = 1.08 cm 1964699389) LVOT diameter (test code 1.92 cm = 4257089962) FS (test code = 38 % 8588956149) MV Peak E Marva (test code 83.4 cm/s = 4051939438) MV Peak A Marva (test code 136.1 cm/s = 2777174985) E/A ratio (test code = ratio 6835993156) E wave decelartion time 0.16 s (test code = 4950373817) MV E/e' septal (test 7.1 cm/s code = 7743715735) LA Volume Index (BP) 21.8 mL/m2 (test code = 9957195472) LA volume (BP) (test 43.7 mL code = 0137218118) LVOT peak marav (test code 137.5 cm/s = 9861387831) LVOT mn grad (test code mmHg = 2147238024) LA size (test code = 3.9 cm 3925992654) LAV(MOD-sp2) (test code 43.50 mL = 8352753732) LAV(MOD-sp4) (test code 42.50 mL = 4330396620) Tapse (test code = 1.88 cm 8943753245) AV LVOT peak gradient mmHg (test code = 8433751891) LVOT peak VTI (test code 23.5 cm = 4267256724) LV V1 mean (test code = 92.90 cm/s 6302334850) MV Prop V (test code = 46.60 cm/s 9471629952) Ao root annulus (test 3.1 cm code = 1395417140) Ao root diam (test code 3.10 cm = 9999913471) Aortic root (test code = 3.1 cm 1682163250) PW (test code = 1.08 cm 0.6-1.2 4246273746) EF - 2D (test code = 68.30 % 95471349) Interventricular Septum 1.07 cm Diastolic Thickness by 2D (test code = 0588674) Radiology Study observation (narrative) (test code = 95720-4) JENNIFFER (test code = JENNIFFER) ?Left?Ventricle: Normal [...] (104.3 kg) 2.12 sq meters 118/66 96 [facility] GLUCOSE (AUTOMATED)2021-09-22 22:23:31 Test Item Value Reference Range Interpretation Comments POCT GLU (test code = 7907742274) 389 mg/dL 70-110 H Lab Interpretation (test code = Abnormal 76285-5) [facility] [id number] 21:48:25 Test Item Value Reference Range Interpretation Comments SPUTUM CULTURE (test Specimen cellular code = 622-1) elements do not represent lower respiratory tract. Specimen rejected for routine bacterial culture. Suggest reorder and recollection. [facility] GLUCOSE (AUTOMATED)2021-09-22 20:03:02 Test Item Value Reference Range Interpretation Comments POCT GLU (test code = 6434322159) 365 mg/dL 70-110 H Lab Interpretation (test code = Abnormal 54558-5) [facility] GLUCOSE (AUTOMATED)2021-09-22 18:09:08 Test Item Value Reference Range Interpretation Comments POCT GLU (test code = 1732614964) 361 mg/dL 70-110 H Lab Interpretation (test code = Abnormal 45863-2) [facility] GLUCOSE (AUTOMATED)2021-09-22 13:24:25 Test Item Value Reference Range Interpretation Comments POCT GLU (test code = 2978276545) 394 mg/dL 70-110 H Lab Interpretation (test code = Abnormal 53964-8) [facility] 20 + LACTIC [id number] 13:21:48 Test Item Value Reference Range Interpretation Comments PH (test code = 2) 7.35-7.45 PCO2 (test code = See_Comment H [Automate d 9411391587) message] The sy stem which generated this result transmitted reference range : 35 - 45 mmHg. The reference range was not used to interpret this result as normal/abnormal . PO2 (test code = See_Comment L [Automated 5111924518) message] The sy stem which generated this result transmitted reference range : 80 - 100 mmHg. The reference range was not used to interpret this result as normal/abnormal . HCO3 (test code = See_Comment H [Automate d 0256080726) message] The sy stem which generated this result transmitted reference range : 22 - 26 mEq/L. The reference range was not used to interpret this result as normal/abnormal . BE (test code = See_Comment H [Automated 1021931238) message] The sy stem which generated this result transmitted reference range : -3.0 - 3.0 mEq/ L. The reference r josselyn was not used to interpret this result as normal/abnormal . THB (test code = 11.0 g/dL 12.0-16.0 L 3761094745) %O2HB (test code = 92.4 % 94.0-99.0 L 4813217892) %COHB ART (test code = 0.3 % 0.0-1.5 7140682683) %METHB ART (test code = 0.3 % 0.4-1.5 L 2569283888) VOL%O2 ART (test code = 14.3 % 15.0-23.0 L 1653722377) NA (test code = 138 mmol/L 135-145 0965326966) K+ (test code = 4.7 mmol/L 3.5-5.0 2591189265) AC CA IONZ (test code = 4.70 mg/dL 4.50-5.30 7282079026) GLUCOSE (test code = 401 mg/dL 70-110 H 6044333906) LACTIC ACID (test code 1.76 mmol/L 0.50-2.20 = 3940731362) Lab Interpretation Abnormal (test code = 48495-7) [facility] Metabolic Panel (NA, K, CL, CO2, Glucose, BUN, Creatinine, CA)2021-09-22 13:08:40 Test Item Value Reference Range Interpretation Comments NA (test code = 139 mmol/L 135-145 1499222651) K (test code = 4.9 mmol/L 3.5-5.0 5300178105) CL (test code = 93 mmol/L 98-108 L 8646327646) CO2 TOTAL (test code = 38 mmol/L 23-31 H 2157971977) AGAP (test code = 2-16 1499168328) BUN (test code = 19 mg/dL 7-23 0039906338) GLUCOSE (test code = 393 mg/dL 70-110 H 8215539743) CREATININE (test code = 0.89 mg/dL 0.50-1.04 9761700000) CALCIUM (test code = 8.9 mg/dL 8.6-10.6 9384335886) eGFR (test code = mL/min/1.73m2 6188286052) JENNIFFER (test code = JENNIFFER) Association of [...] tests). Lab Interpretation Abnormal (test code = 15359-7) [facility] [id number] 13:00:02 Test Item Value Reference Range Interpretation Comments MAGNESIUM (test code = 2780243366) 2.1 mg/dL 1.7-2.4 Lab Interpretation (test code = Normal 18083-7) [facility]Phosphorus [id number] 13:00:02 Test Item Value Reference Range Interpretation Comments PHOSPHORUS (test code = 3216157273) 3.3 mg/dL 2.5-5.0 Lab Interpretation (test code = Normal 79858-2) [facility] (ALB, T.PRO, BILI T, BU/BC, ALT, AST, ALK, PHOS)2021-09-22 13:00:02 Test Item Value Reference Range Interpretation Comments TOTAL BILI (test code = 8314292360) 0.7 mg/dL 0.1-1.1 BILI UNCON (test code = 9496194885) 0.1 mg/dL 0.1-1.1 BILI CONJ (test code = 0232031098) 0.0 mg/dL 0.0-0.3 T PROTEIN (test code = 5595888122) 8.1 g/dL 6.3-8.2 ALBUMIN (test code = 7285911929) 4.2 g/dL 3.5-5.0 ALK PHOS (test code = 3309768663) 145 U/L 34-122 H ALTv (test code = 1742-6) 34 U/L 5-35 AST(SGOT) (test code = 3016261473) 46 U/L 13-40 H Lab Interpretation (test code = Abnormal 03875-6) [facility] HospitalProthrombin [facility] / [id number] 12:42:02 Test Item Value Reference Range Interpretation [...] tions. Lab Interpretation (test Normal code = 77343-2) [facility] with [id number] 12:35:41 Test Item Value Reference Range Interpretation [...] RDW-SD (test code = 45.0 fL 39.0-49.9 64515-9) RDW-CV (test code = 13.7 % 12.0-15.5 788-0) PLT (test code = See_Comment [Automated 777-3) message] The sy stem which generated this result transmitted reference range : 166 - 358 10*3/ ?L. The reference r josselyn was not used to interpret this result as normal/abnormal . MPV (test code = 9.0 fL 9.5-12.9 L 89869-4) NRBC/100 WBC (test See_Comment [Automat ed code = 9431128747) message] The system which generated this result transmitted reference range : 0.0 - 10.0 /100 WBCs. The refer ence range was not u sed to interpret th is result as normal/abnormal . NRBC x10^3 (test code <0.01 See_Comment [Auto mated = 8982648245) message] The s ystem which generated this result transmitted reference range : 10*3/?L. The reference range was not used to interpret this result as normal/abnormal . GRAN MAT (NEUT) % 93.7 % (test code = 770-8) IMM GRAN % (test code 0.90 % = 3602900892) LYMPH % (test code = 3.2 % 736-9) MONO % (test code = 1.1 % 5905-5) EOS % (test code = 0.5 % 713-8) BASO % (test code = 0.6 % 706-2) GRAN MAT x10^3(ANC) 9.27 10*3/uL 1.88-7.09 H (test code = 0856922511) IMM GRAN x10^3 (test 0.09 10*3/uL 0.00-0.06 H code = 0601837641) LYMPH x10^3 (test code 0.32 10*3/uL 1.32-3.29 L = 731-0) MONO x10^3 (test code 0.11 10*3/uL 0.33-0.92 L = 742-7) EOS x10^3 (test code = 0.05 10*3/uL 0.03-0.39 711-2) BASO x10^3 (test code 0.06 10*3/uL 0.01-0.07 = 704-7) Lab Interpretation Abnormal (test code = 45624-6) [facility] HospitalGLYCOSYLATED HEMOGLOBIN (A1C)2021-09-22 12:16:03 Test Item Value Reference Range Interpretation Comments HGB A1C (test code = 6.4 % 4.0-5.7 H 4548-4) JENNIFFER (test code = JENNIFFER) Reference RangesNormal: <5.7%Prediabetes: 5.7 - 6.4%Diabetes: > 6.5% Lab Interpretation (test Abnormal code = 68919-2) [facility] [id number] 07:25:36 Test Item Value Reference Interpretation Comments Range TROPONIN I (test <0.012 See_Comment [Automated code = 1393993585) message] The system which generated this result [...] biotin. Lab Interpretation Normal (test code = 58267-7) [facility]AL [id number] 07:21:56 Test Item Value Reference Range Interpretation Comments NT-proBNP (test code 127 pg/mL See_Comment H [Autom ated = 3972904683) message] The system which generated this result transmitted reference range : <=125. The reference range was not used to interpret this result as normal/abnormal . JENNIFFER (test code = JENNIFFER) Biotin has been reported to cause a negative bias, interpret results relative to patient's use of biotin. Lab Interpretation Abnormal (test code = 03177-7) [facility] METABOLIC PANEL (68040)2021-09-22 07:01:13 Test Item Value Reference Range Interpretation Comments NA (test code = 137 mmol/L 135-145 0920805048) K (test code = 4.9 mmol/L 3.5-5.0 7149943736) CL (test code = 96 mmol/L 98-108 L 1806697613) CO2 TOTAL (test code = 36 mmol/L 23-31 H 1111146465) AGAP (test code = 2-16 0523989194) BUN (test code = 18 mg/dL 7-23 0006242680) GLUCOSE (test code = 298 mg/dL 70-110 H 0716027342) CREATININE (test code = 0.73 mg/dL 0.50-1.04 6726280457) TOTAL BILI (test code = 0.6 mg/dL 0.1-1.8 3140020623) CALCIUM (test code = 8.5 mg/dL 8.6-10.6 L 8322841738) T PROTEIN (test code = 7.1 g/dL 6.3-8.2 5616135911) ALBUMIN (test code = 4.0 g/dL 3.5-5.0 8628421279) ALK PHOS (test code = 132 U/L 34-122 H 1994363743) ALTv (test code = 31 U/L 535 1742-6) AST(SGOT) (test code = 51 U/L 13-40 H 8083814104) eGFR (test code = mL/min/1.73m2 1812810048) JENNIFFER (test code = JENNIFFER) Association of [...] tests). Lab Interpretation Abnormal (test code = 99375-6) [id number] 06:54:12 Test Item Value Reference Range Interpretation Comments APTT Patient (test See_Comment [Automat ed code = 3173-2) message] The system which generated this result transmitted reference range : 23 - 38 Seconds . The reference range was not used to interpr et this result as normal/abnormal . JENNIFFER (test code = JENNIFFER) The [facility] patient population mean normal value for aPTT is 30 seconds. Lab Interpretation Normal (test code = 82701-2) [id number] 06:52:12 Test Item Value Reference Range Interpretation [...] tions. Lab Interpretation (test Normal code = 06390-1) [facility] WITH [id number] 06:44:31 Test Item Value Reference Range Interpretation [...] RDW-SD (test code = 47.3 fL 39.0-49.9 25792-1) RDW-CV (test code = 13.8 % 12.0-15.5 788-0) PLT (test code = See_Comment [Automated 777-3) message] The sy stem which generated this result transmitted reference range : 166 - 358 10*3/ ?L. The reference r josselyn was not used to interpret this result as normal/abnormal . MPV (test code = 8.8 fL 9.5-12.9 L 69706-7) NRBC/100 WBC (test See_Comment [Automat ed code = 7080018287) message] The system which generated this result transmitted reference range : 0.0 - 10.0 /100 WBCs. The refer ence range was not u sed to interpret th is result as normal/abnormal . NRBC x10^3 (test code <0.01 See_Comment [Auto mated = [id number]) message] The s ystem which generated this result transmitted reference range : 10*3/?L. The reference range was not used to interpret this result as normal/abnormal . GRAN MAT (NEUT) % 82.4 % (test code = 770-8) IMM GRAN % (test code 0.80 % = 6209186085) LYMPH % (test code = 8.0 % 736-9) MONO % (test code = 5.1 % 5905-5) EOS % (test code = 2.9 % 713-8) BASO % (test code = 0.8 % 706-2) GRAN MAT x10^3(ANC) 6.26 10*3/uL 1.88-7.09 (test code = 5421791802) IMM GRAN x10^3 (test 0.06 10*3/uL 0.00-0.06 code = 6451631217) LYMPH x10^3 (test code 0.61 10*3/uL 1.32-3.29 L = 731-0) MONO x10^3 (test code 0.39 10*3/uL 0.33-0.92 = 742-7) EOS x10^3 (test code = 0.22 10*3/uL 0.03-0.39 711-2) BASO x10^3 (test code 0.06 10*3/uL 0.01-0.07 = 704-7) Lab Interpretation Abnormal (test code = 60273-5) [facility]
[2022-12-22] MEDS ORDERED: IPRATROPIUM BROM 0.5MG/2.5ML ONE ×2 (05:54→06:31)
[2022-12-22] MEDS ORDERED: ALBUTEROL 2.5 MG/3 ML NEB SOL ONE ×2 (05:54→06:31)
[2022-12-22 06:08] LABS: Blood Gas Oxyhemoglobin 96.5 % (94-97); Blood O2 Saturation 98.9 % (92-98.5)
[2022-12-22 06:18] LABS: Absolute Lymphocytes (CBC) 0.6 K/uL (0.7-4.9); Hematocrit 28.1 % (36.0-45.0); Lymphocytes % 4.5 % (15.3-44.8); MCV 88.5 fL (80-100); RBC Red Blood Cell Count 3.17 M/uL (3.86-4.86)
[2022-12-22 06:21] LABS: Protime INR 0.94
[2022-12-22] MEDS ORDERED: FUROSEMIDE 40 MG/4 ML VIAL ONE (06:22)
[2022-12-22] MEDS ORDERED: Magnesium Sulfate 2gm IVPB 2 G/50 ML BAG IV ONE (06:26)
[2022-12-22 06:28] LABS: ALT/SGPT 27 U/L (13-56); AST/SGOT 14 U/L (15-37); Albumin 3.2 g/dL (3.4-5.0); Alkaline Phosphatase 122 U/L (45-117); BUN Blood Urea Nitrogen 13 mg/dL (7-18); Bicarbonate 44 mEq/L (21-32); Bilirubin Total 0.3 mg/dL (0.2-1.0); Creatine Phosphokinase 18 U/L (26-192); Glomerular Filtration Rate 99 ml/min (=/>90); Glucose Level 257 mg/dL (74-106); Lipase 22 U/L (13-75); Magnesium 2.1 mg/dL (1.6-2.4); NT PRO-BNP 215 pg/mL (<125); Potassium 4.5 mEq/L (3.5-5.1); Protein, Total 7.1 g/dL (6.4-8.2); Sodium Level 140 mEq/L (136-145); Troponin High Sensitivity 7.5 pg/mL (<58.9)
[2022-12-22 06:29] LABS: Bilirubin Direct < 0.1 mg/dL (0-0.2); Bilirubin Indirect, Calculated ND mg/dL (0.2-0.8)
[2022-12-22 06:33] LABS: SARS-CoV-2 Antigen Rapid Res Negative (Negative)
[2022-12-22 07:10] LABS: Specific Gravity 1.008 (1.005-1.030); Urine Bilirubin NEGATIVE (Negative); Urine Blood Negative (Negative); Urine Clarity Clear (Clear); Urine Color Colorless (Yellow); Urine Glucose TRACE (Negative); Urine Protein NEGATIVE (Negative); Urine Urobilinogen Normal (Normal); Urine pH 5.5 (5.0-7.0)
--- NOTE | 2022-12-22 07:11 | EDPHYS ---
Physician Documentation [facility] Name: Janie Erickson Age: 62 yrs Sex: Female : 1960 Arrival Date: 12/22/2022 Time: 05:31 Bed 4 Private MD: ED Physician Caleb Esposito HPI: 12/22 05:34 This 62 yrs old Female presents to ER via Unassigned with complaints of sp4 Shortness Of Breath. 06:14 . sp4 07:02 Patient has a history of severe COPD continues tobacco use, tracheostomy dependent, sp4 home ventilator dependent, history of chronic hypercapnic respiratory failure, chronic diastolic congestive heart failure, insulin-dependent type 2 diabetes, presents with worsening dyspnea at home, patient was managed at [facility] [[email or web address] 12/07/2022 through 12/10/2022 where her tracheostomy was exchanged. Patient developed worsening dyspnea at home today associated with some lethargy. . Historical: - Allergies: 06:06 codeine sulfate; kd3 06:06 Robaxin; kd3 06:06 Sulfa (Sulfonamide Antibiotics); kd3 06:06 Ultram; kd3 - PMHx: 06:06 Chronic obstructive lung disease; Congestive heart failure; diabetes mellitus; kd3 - PSHx: 06:06 trach; kd3 - Immunization history:: Adult Immunizations up to date. - Social history:: Smoking status: Patient reports the use of cigarette tobacco products, smokes one pack cigarettes per day. ROS: 07:02 Constitutional: Negative for fever, chills, and weight loss, positive generalized sp4 weakness, positive lethargy Eyes: Negative for injury, pain, redness, and discharge, ENT: Negative for injury, pain, and discharge, Neck: Negative for injury, pain, and swelling, Cardiovascular: Negative for chest pain, palpitations, and edema, Respiratory: Negative for pleuritic chest pain, positive for dyspnea, tachypnea, positive for ventilator dependent at home Abdomen/GI: Negative for abdominal pain, nausea, vomiting, diarrhea, and constipation, Back: Negative for injury and pain, : Negative for injury, bleeding, discharge, and swelling, MS/Extremity: Negative for injury and deformity, Skin: Negative for injury, rash, and discoloration, Neuro: Negative for headache, numbness, tingling, and seizure, positive generalized weakness and lethargy Psych: Negative for depression, anxiety, Allergy/Immunology: Negative for hives, rash, and allergies Endocrine: Negative for neck swelling, polydipsia, polyuria, polyphagia, and weight changes Hematologic/Lymphatic: Negative for swollen nodes, abnormal bleeding, and unusual bruising Exam: 07:02 Constitutional: This is a well developed, well nourished patient who is awake, sp4 patient is lethargic, morbidly obese, severely deconditioned, tracheostomy dependent, on ventilator Head/Face: Normocephalic, atraumatic. Eyes: Pupils equal round and reactive to light, extra-ocular motions intact. Lids and lashes normal. Conjunctiva and sclera are not injected. Cornea within normal limits. Periorbital areas with no swelling, redness, or edema. ENT: Nares patent. No nasal discharge, no septal abnormalities noted. Tympanic membranes are normal and external auditory canals are clear. Oropharynx with no redness, swelling, or masses, exudates, or evidence of obstruction, uvula midline. Mucous membranes moist. Neck: Trachea midline, no thyromegaly or masses palpated, and no cervical lymphadenopathy. Supple, full range of motion without nuchal rigidity, or vertebral point tenderness. No Meningismus. Chest/axilla: Normal chest wall appearance and motion. Nontender with no deformity. No lesions are appreciated. Cardiovascular: There is a regular tachycardia no gallops, murmurs, or rubs. Normal PMI, no JVD. No pulse deficits. Respiratory: Lungs have equal breath sounds bilaterally, decreased breath sounds bilaterally, bilateral expiratory wheezes. Dyspnea, tachypnea, accessory muscle use Abdomen/GI: Soft, non-tender, with normal bowel sounds. No distension or tympany. No guarding or rebound. No evidence of tenderness throughout. Back: No spinal tenderness. No costovertebral tenderness. Skin: Warm, dry with normal turgor. Normal color with no rashes, no lesions, and no evidence of cellulitis. MS/ Extremity: Pulses equal, no cyanosis. Neurovascular intact. Full, normal range of motion. Neuro: Awake and alert, GCS 15, oriented to person, follows commands, lethargy on exam 07:02 ECG was reviewed by the Attending Physician. There is sinus tachycardia at the rate sp4 of 119, EKG time 0609 low voltage QRS, no ST elevation or depression, overall normal EKG apart from tachycardia Vital Signs: 06:09 Pulse 118; Resp 26; Temp 98.1(TE); Pulse Ox 100% ; kd3 06:22 BP 181 / 78; kd3 Procedures: 06:49 Central Line: the site was prepped with in sterile fashion, Chlorhexidine prep, a sp4 triple lumen catheter was inserted, in the left internal jugular vein, in 1 attempts. placement was verified, by CXR, by blood return, the site was dressed with Tegaderm, using sterile technique, the patient tolerated the procedure, well, Ultrasound-guided triple-lumen central venous line placed in the left internal jugular location. MDM: 05:35 Patient medically screened. sp4 07:02 Data reviewed: vital signs, nurses notes, old medical records, lab test result(s), EKG, sp4 radiologic studies, plain films. Consideration of Admission/Observation Patient was admitted/placed on observation. Escalation of care including admission/observation considered. ED course: X-ray revealed small right pleural effusion versus pleural thickening, subsegmental atelectasis right lung base. . 07:02 ED course: Patient was moved to the hospital ventilator with improvement in mental sp4 status. Improvement in oxygenation. Patient was given central line for better IV access. Patient was discussed with enterprise mobility architect and admitting hospitalist and is stable for admission here with critical care. . 12/22 05:35 Order name: BMP; Complete Time: 06:51 sp4 12/22 05:35 Order name: Blood Culture Adult (2) sp4 12/22 05:35 Order name: CBC with Diff sp4 12/22 05:35 Order name: CPK; Complete Time: 06:51 sp4 12/22 05:35 Order name: Hepatic Function; Complete Time: 06:51 sp4 12/22 05:35 Order name: Lipase; Complete Time: 06:51 sp4 12/22 05:35 Order name: Magnesium; Complete Time: 06:51 sp4 12/22 05:35 Order name: NT PRO-BNP; Complete Time: 06:51 sp4 12/22 05:35 Order name: PT-INR; Complete Time: 06:51 sp4 12/22 05:35 Order name: Ptt, Activated; Complete Time: 06:51 sp4 12/22 05:35 Order name: Troponin HS; Complete Time: 06:51 sp4 12/22 05:35 Order name: ABG; Complete Time: 07:25 sp4 12/22 05:44 Order name: Lactate w/ 2H reflex if indic.; Complete Time: 06:51 kd3 12/22 06:02 Order name: SARS RAPID; Complete Time: 06:52 sp4 12/22 06:02 Order name: Influenza Screen (a \T\ B); Complete Time: 06:52 sp4 12/22 06:12 Order name: Urinalysis w/ reflexes; Complete Time: 07:25 sp4 12/22 08:15 Order name: CBC Smear Scan EDMS 12/22 09:51 Order name: Magnesium EDMS 12/22 09:51 Order name: Phosphorus EDMS 12/22 09:51 Order name: T4 Free EDMS 12/22 09:51 Order name: Thyroid Stimulating Hormone EDMS 12/22 09:51 Order name: CBC with Automated Diff EDMS 12/22 09:51 Order name: CBC with Automated Diff EDMS 12/22 09:51 Order name: Comprehensive Metabolic Panel EDMS 12/22 09:51 Order name: Comprehensive Metabolic Panel EDMS 12/22 09:51 Order name: NT PRO-BNP EDMS 12/22 09:51 Order name: NT PRO-BNP EDMS 12/22 11:11 Order name: ABG Arterial Blood Gas EDMS 12/22 12:26 Order name: Glucose, Ancillary Testing EDMS 12/22 05:35 Order name: XRAY CXR (1 view) sp4 12/22 06:50 Order name: Chest Single View XRAY; Complete Time: 07:46 sp4 12/22 09:47 Order name: Thorax Wo Con EDMS 12/22 05:35 Order name: EKG; Complete Time: 05:36 sp4 12/22 09:51 Order name: 60g Consistent Carbohydrate (ADA 1800/2000) EDMS 12/22 09:51 Order name: CONS Physician Consult EDMS 12/22 05:35 Order name: Cardiac monitoring; Complete Time: 05:48 sp4 12/22 05:35 Order name: EKG - Nurse/Tech; Complete Time: 06:29 sp4 12/22 05:35 Order name: IV Saline Lock; Complete Time: 06:29 sp4 12/22 05:35 Order name: Labs collected and sent; Complete Time: 06:29 sp4 12/22 05:35 Order name: O2 Per Protocol; Complete Time: 05:49 sp4 12/22 05:35 Order name: O2 Sat Monitoring; Complete Time: 05:49 sp4 12/22 06:12 Order name: Yuliana; Complete Time: 07:04 sp4 EC:02 Rate is 119 beats/min. Rhythm is regular, Sinus tachycardia. QRS [place] is Normal. [place] sp4 interval is normal. QRS interval is normal. QT interval is normal. T waves are Normal. No ST changes noted. Clinical impression: Sinus tachycardia. Interpreted by me. Administered Medications: 05:45 Drug: DuoNeb Nebulize (3:1) (2.5 mg - 0.5 mg) 3 ml Route: Nebulizer; pf1 06:45 Follow up: Response: No adverse reaction; Marked relief of symptoms pf1 06:03 Drug: MethylPrednisoLONE IVP 125 mg Route: IVP; Site: left antecubital; ll3 06:44 Follow up: Response: No adverse reaction; Marked relief of symptoms pf1 06:03 Drug: DuoNeb Nebulize (3:1) (2.5 mg - 0.5 mg) 3 ml Route: Nebulizer; ll3 06:44 Follow up: Response: No adverse reaction; Marked relief of symptoms pf1 06:16 Drug: Furosemide IVP 40 mg Route: IVP; Site: left antecubital; pf1 06:44 Follow up: Response: No adverse reaction; Marked relief of symptoms pf1 06:25 Drug: Magnesium Sulfate IVPB 2 grams {Note: Dr. Esposito verbal stated to given Mag pf1 2gram within 30 minutes IVbolus.} Route: IVPB; Infused Over: 2 hrs; Site: left antecubital; 07:15 Follow up: Response: No adverse reaction; Marked relief of symptoms; IV Status: pf1 Completed infusion; IV Intake: 50ml 06:50 Drug: Sodium Bicarbonate IVP 1 amp Route: IVP; Site: left antecubital; ll3 07:15 Follow up: Response: No adverse reaction; Marked relief of symptoms pf1 Disposition: 07:02 Critical Care:. sp4 Disposition Summary: 12/22/22 07:11 Hospitalization Ordered Hospitalization Status: Inpatient Admission sp4 Provider: Kevin Brewer Condition: Serious sp4 Problem: new sp4 Symptoms: have improved sp4 Bed/Room Type: Standard sp4 Location: Intensive Care Unit(12/22/22 13:42) bd Room Assignment: 1-(12/22/22 13:42) bd Diagnosis - Acute respiratory failure with hypercapnia sp4 - COPD exacerbation, hypercarbia, respiratory acidosis, CO2 narcosis. Physical sp4 deconditioning - Poor peripheral vascular access sp4 Forms: - Medication Reconciliation Form sp4 - SBAR form sp4 Critical care time excluding procedures: 07:02 Critical care time: Bedside Care: 36 minutes, Consultation: 12 minutes, Family sp4 Intervention: 12 minutes. Total time: 60 minutes Signatures: Dispatcher [employer] EDMS Mary Kirkland Jahala RN RN jl7 Hima Marinelli, RN RN ll3 Teresa Hamm, RN RN kd3 Carolyn Chaney RN RN pf1 Caleb Esposito MD MD sp4 Corrections: (The following items were deleted from the chart) 06:32 06:01 BLOOD CULTURE*+BA.LAB.BRZ ordered. EDRI EDMS 09:56 07:11 Telemetry/MedSurg (Inpatient) sp4 jl7 09:56 07:11 sp4 jl7 13:42 09:56 [facility] ER HOLD jl7 bd 13:42 09:56 ERHOLD- jl7 bd
--- NOTE | 2022-12-22 07:11 | ER ---
Nurse's Notes [facility] Name: Janie Erickson Age: 62 yrs Sex: Female : 1960 Arrival Date: 12/22/2022 Time: 05:31 Bed 4 Private MD: Diagnosis: Acute respiratory failure with hypercapnia;COPD exacerbation, hypercarbia, respiratory acidosis, CO2 narcosis. Physical deconditioning;Poor peripheral vascular access Presentation: 12/22 06:03 Chief complaint: Spouse and/or significant other states: She got a new Trach put in kd3 about 1 week ago and she has been progressively getting more short of breath. Today it is very bad, her O2 says 100% but she is struggling too much. Coronavirus screen: Vaccine status:. Ebola Screen: No symptoms or risks identified at this time. Initial Sepsis Screen: Does the patient meet any 2 criteria? RR > 20 per min. HR > 90 bpm. Yes Does the patient have a suspected source of infection? Yes:. Risk Assessment: Do you want to hurt yourself or someone else? Patient reports no desire to harm self or others. Onset of symptoms was December 22, 2022. 06:03 Method Of Arrival: Wheelchair kd3 06:03 Acuity: PAULINA 2 kd3 Triage Assessment: 06:06 General: Appears distressed, ill, Behavior is cooperative. Pain: Complains of pain in kd3 face and chest. Respiratory: Reports shortness of breath at rest Onset: The symptoms/episode began/occurred today, the patient has severe shortness of breath. Historical: - Allergies: 06:06 codeine sulfate; kd3 06:06 Robaxin; kd3 06:06 Sulfa (Sulfonamide Antibiotics); kd3 06:06 Ultram; kd3 - PMHx: 06:06 Chronic obstructive lung disease; Congestive heart failure; diabetes mellitus; kd3 - PSHx: 06:06 trach; kd3 - Immunization history:: Adult Immunizations up to date. - Social history:: Smoking status: Patient reports the use of cigarette tobacco products, smokes one pack cigarettes per day. Screenin:00 [facility] ED Fall Risk Assessment (Adult) History of falling in the last 3 months, pf1 including since admission No falls in past 3 months (0 pts) Confusion or Disorientation No (0 pts) Intoxicated or Sedated No (0 pts) Impaired Gait Yes (1 pt) Mobility Assist Device Used Yes (1 pt) Altered Elimination No (0 pt) Score/Fall Risk Level 3 or more points = High Risk Oriented to surroundings, Maintained a safe environment, Educated pt \T\ family on fall prevention, incl call for assistance when getting out of bed, Assessed \T\ reinforced patient's understanding of fall precautions, Provided non-skid footwear, Hourly rounding (assess needs \T\ fall precautionary measures) done, Used ambulatory aids as needed (educated on \T\ assisted with), Used gait belt as appropriate Implemented a Fall Risk Plan of Care, Apply high fall risk patient identification: yellow non skid footwear/ fall signage, Remained w/in arm's length of patient and in sight while toileting, Offered frequent toileting (1:1 observation), Remained with patient while ambulating, Utilized family, sitter, or virtual video game tester as indicated. 06:00 Abuse screen: Denies threats or abuse. Nutritional screening: No deficits noted. pf1 Tuberculosis screening: No symptoms or risk factors identified. Vital Signs: 06:09 Pulse 118; Resp 26; Temp 98.1(TE); Pulse Ox 100% ; kd3 06:22 BP 181 / 78; kd3 ED Course: 05:31 Patient arrived in ED. ja2 05:32 Caleb Esposito MD is Attending Physician. sp4 06:06 Triage completed. kd3 06:06 Arm band placed on right wrist. kd3 06:08 XRAY CXR (1 view) In Process Unspecified. EDMS 06:12 Inserted saline lock: 20 gauge in left antecubital area, using aseptic technique. Blood kd3 collected. IV inserted by , blood collected. 06:45 Assisted provider with central line placement. Set up central line tray. Triple lumen pf1 line placed in left internal jugular. Line placed by Caleb Esposito MD Placement verified by CXR, blood return, Dressed with Tegaderm, Patient tolerated well. Before procedure, did Practitioner(s) obtain informed consent? Yes. Patient \T\ family education about procedure, CLABSI prevention and S/S of infection? Yes. Time-out/Briefing performed prior to start of procedure? Yes. Was handwashing/sanitizing done immediately prior to procedure? Yes. Was patient positioned to in a way to prevent air embolism? Yes. Was procedure site sterilized? Yes, with chlorhexidine. Was the site allowed to dry? Yes. Was local anesthetic and/or sedation utilized? Yes. During the procedure, did the Practitioner(s) maintain a sterile field? Yes. Were unused ports clamped during insertion? Yes. Was a 2nd qualified MD obtained after 3 unsuccessful insertion attempts? No. Was blood aspirated from each lumen? Yes. After the procedure, did the Practitioner(s) clean the site and apply a sterile dressing? Yes. 06:55 Bridges cath inserted, using sterile technique, 16 Fr., by az, balloon inflated, to pf1 gravity drainage, clamped. urine specimen collected. returned clear yellow urine. Patient tolerated well. 07:07 Chest Single View XRAY In Process Unspecified. EDMS 07:09 Kevin Brewer is Hospitalizing Provider. sp4 08:09 Rowena Moise RN is Primary Nurse. jl7 Administered Medications: 05:45 Drug: DuoNeb Nebulize (3:1) (2.5 mg - 0.5 mg) 3 ml Route: Nebulizer; pf1 06:45 Follow up: Response: No adverse reaction; Marked relief of symptoms pf1 06:03 Drug: MethylPrednisoLONE IVP 125 mg Route: IVP; Site: left antecubital; ll3 06:44 Follow up: Response: No adverse reaction; Marked relief of symptoms pf1 06:03 Drug: DuoNeb Nebulize (3:1) (2.5 mg - 0.5 mg) 3 ml Route: Nebulizer; ll3 06:44 Follow up: Response: No adverse reaction; Marked relief of symptoms pf1 06:16 Drug: Furosemide IVP 40 mg Route: IVP; Site: left antecubital; pf1 06:44 Follow up: Response: No adverse reaction; Marked relief of symptoms pf1 06:25 Drug: Magnesium Sulfate IVPB 2 grams {Note: Dr. Esposito verbal stated to given Mag pf1 2gram within 30 minutes IVbolus.} Route: IVPB; Infused Over: 2 hrs; Site: left antecubital; 07:15 Follow up: Response: No adverse reaction; Marked relief of symptoms; IV Status: pf1 Completed infusion; IV Intake: 50ml 06:50 Drug: Sodium Bicarbonate IVP 1 amp Route: IVP; Site: left antecubital; ll3 07:15 Follow up: Response: No adverse reaction; Marked relief of symptoms pf1 Medication: 13:58 VIS not applicable for this client. jl7 Intake: 07:15 IV: 50ml; Total: 50ml. pf1 Outcome: 07:11 Decision to Hospitalize by Provider. sp4 14:34 Patient left the ED. Signatures: Dispatcher [employer] EDMS Saba Johnson RN RN Rowena Moise RN RN jl7 Felicia Da Silva [place], RN RN ll3 Teresa Hamm RN RN kd3 Carolyn Chaney RN RN pf1 Caleb Esposito MD MD sp4 Corrections: (The following items were deleted from the chart) 06:13 06:03 Acuity: PAULINA 3 kd3 kd3
--- NOTE | 2022-12-22 07:45 | RAD REPORT ---
[facility] CLINICAL HISTORY: CHEST PAIN COMPARISON: Chest Single View dated 12/22/2022; Chest Single View dated 12/07/2022; Chest Single View dated 11/26/2022; Chest Single View dated 11/23/2022 TECHNIQUE: Portable AP view of the chest. FINDINGS: Left IJ CVC has been placed its catheter tip projects over the distal SVC. Tracheostomy tu be again seen. Stable bibasilar streaky opacities, which may represent atelectasis. Stable crowding o f the central vascular markings. Appearance is accentuated by patient rotation. Calcified peripheral left lung nodule versus plaque is stable. Noninclusion of the costophrenic angles bilaterally also li mits evaluation. No pneumothorax or effusion. The cardiomediastinal contours are unremarkable. IMPRESSION: Satisfactory positioning of left IJ CVC. Other stable findings as above.
[2022-12-22 08:15] LABS: Blood Morphology Comment NOT SEEN (NOT SEEN); Platelet Estimate ADEQ; White Blood Cell Scan OK (OK)
[2022-12-22] MEDS ORDERED: ACETAMINOPHEN 325 MG TABLET PO PRN (09:46)
--- NOTE | 2022-12-22 09:46 | RAD REPORT ---
EXAM DESCRIPTION: RAD - Chest Single View - 12/22/2022 6:06 am CLINICAL HISTORY: The patient is 62 years old and is Female; COPD TECHNIQUE: Single view of the chest. COMPARISON: December 07, 2022. FINDINGS: Lungs: Left midlung calcification, unchanged. No pulmonary vascular congestion. Pleural space: Small right pleural effusion versus pleural thickening. Subsegmental atelectasis r ight lung base. No pneumothorax. Heart: Unremarkable. No cardiomegaly. Mediastinum: Unremarkable. Bones/joints: No acute fracture visualized. Tubes, lines and devices: Tracheostomy tube again visualized. Upper abdomen: No free air in the visualized upper abdomen. IMPRESSION: Small right pleural effusion versus pleural thickening. Subsegmental atelectasis right l mari base. Electronically signed by: Amanda Thakkar MD 12/22/2022 6:29 AM CDT Due to temporary technical issues with the PACS/Fluency reporting system, reports are being signed by the in house radiologists without review as a courtesy to insure prompt reporting. The interpreting radiologist is fully responsible for the content of the report.
--- NOTE | 2022-12-22 09:55 | P.HP ---
Certification for Inpatient Patient admitted to: Inpatient With expected LOS: >2 Midnights Patient will require the following post-hospital care: None Practitioner: I am a practitioner with admitting privileges, knowledge of patient current condition, hospital course, and medical plan of care. Services: Services provided to patient in accordance with Admission requirements found in Title 42 Section 412.3 of the Code of Federal Regulations Patient History Date of Service: 12/22/22 Reason for admission: SOB History of Present Illness: Patient is a 62-year-old female with a past medical history significant for severe COPD, tracheostomy dependence, chronic hypercapnic respiratory failure, chronic diastolic CHF, DM 2 who presents with complaint of shortness of breath. Patient was discharged from [facility] where her tracheostomy was exchanged. Spouse reported the patient started having shortness of breath yesterday which became worse over time. Spouse reported that patient has has associated signs and symptoms of shortness of breath and nausea. No other signs and symptoms reported. Symptoms are aggravated or relieved by nothing. Patient was brought to the hospital for medical evaluation. Allergies codeine Allergy (Verified 09/27/22 23:31) Itching methocarbamol [From Robaxin] Allergy (Verified 10/20/22 06:11) Nausea/Vomiting Sulfa (Sulfonamide Antibiotics) Allergy (Verified 09/27/22 23:31) Itching/Hives/Rash tramadol [From Ultram] Adverse Reaction (Verified 09/27/22 23:31) Nausea/Vomiting Home Medications: Cyclobenzaprine [Flexeril*] 10 mg PO TID 05/01/21 Famotidine 40 mg PO DAILY 05/01/21 Furosemide [Lasix*] 40 mg PO DAILY 05/01/21 Hydrocodone Bit/Acetaminophen [Hydrocodon-Acetaminophn 10-325] 1 tab PO Q6H PRN 05/01/21 Ipratropium/Albuterol Sulfate [Iprat-Albut 0.5-3(2.5) mg/3 ml] 3 ml NEB QID 05/01/21 Iron/FA/Vit B-Com W/C [Hemocyte Plus*] 1 tab PO BEDTIME 05/01/21 Levothyroxine [Synthroid*] 0.05 mg PO DAILY 05/01/21 Metformin HCl 500 mg PO BID 05/01/21 PARoxetine HCL [Paroxetine HCl] 40 mg PO DAILY 05/01/21 Pregabalin 300 mg PO BID 05/01/21 Quetiapine [Seroquel*] 50 mg PO BEDTIME 05/01/21 Spironolactone 25 mg PO DAILY 05/01/21 Montelukast Sodium 10 mg PO DAILY 10/20/22 Rosuvastatin [Crestor*] 10 mg PO BEDTIME 10/20/22 Roflumilast [Daliresp*] 500 mcg PO DAILY #30 tab 10/21/22 Insulin Glargine,Hum.rec.anlog [Basaglar Kwikpen U-100] 60 units SQ DAILY 11/23/22 - Past Medical/Surgical History Diabetic: Yes -: COPD -: Chronic diastolic congestive heart failure -: Insulin-dependent diabetes -: Home trach/vent 2/2 chronic hypercapnic respiratory failure -: Hypothyroidism -: Hyperlipidemia -: trach -: -: Hysterectomy -: Left knee surgery Psychosocial/ Personal History: Patient lives at home with family - Family History Father -: Cancer Brother -: Diabetes - Social History Smoking Status: Light Tobacco smoker (1-9 cigarettes/day) Alcohol use: No CD- Drugs: Yes Caffeine use: Yes Place of Residence: Home Review of Systems is unable to be obtained (Unable to assess Due to acuity of condition.) Physical Examination - Physical Exam General: Alert, Oriented x3, Cooperative, Moderate distress HEENT: Atraumatic, PERRLA, Mucous membr. moist/pink, EOMI, Sclerae nonicteric Neck: Supple, 2+ carotid pulse no bruit, No LAD, Without JVD or thyroid abnormality Respiratory: Diminished Cardiovascular: Regular rate/rhythm, Normal S1 S2 Capillary refill: <2 Seconds Gastrointestinal: Normal bowel sounds, No tenderness Musculoskeletal: No clubbing, No swelling, No tenderness Integumentary: No rashes, No breakdown Neurological: Normal speech, Normal tone, Normal affect Lymphatics: No axilla or inguinal lymphadenopathy - Studies Laboratory Data (last 24 hrs) 12/22/22 05:58: PT 10.3, INR 0.94, APTT 35.0 12/22/22 05:58: WBC 14.20 H, Hgb 9.1 L, Hct 28.1 L, Plt Count 299 12/22/22 05:58: Sodium 140, Potassium 4.5, BUN 13, Creatinine 0.69, Glucose 257 H, Magnesium 2.1, Total Bilirubin 0.3, AST 14 L, ALT 27, Alkaline Phosphatase 122 H, Lipase 22 Microbiology Data (last 24 hrs): 12/22/22 06:06 Nasopharnyx Influenza Type A Antigen Screen - Final 12/22/22 06:06 Nasopharnyx Influenza Type B Antigen Screen - Final Assessment and Plan - Plan --Acute on chronic respiratory failure with hypercapnia. Patient is trach dependent. Pulmonology consulted. Patient placed on dexamethasone drip per role player. Continue nebulizer treatment with albuterol and Atrovent. Further management per role player. --Acute on chronic COPD exacerbation. Continue current treatment regimen. --Chronic systolic CHF. Stable. Continue home medication. Daily weight and strict I/O. --DM2 with hyperglycemia. BS monitoring with sliding scale insulin, pre-meal insulin and Lantus. --Leukocytosis. Likely steroid induced. We will continue to monitor WBCs --Anemia. H and H stable. Will continue to monitor hemoglobin and transfuse if lest than 7.0 --Hypothyroidism. Continue Synthroid --HLD. Continue statin --Nicotine dependence. Patient counseled on tobacco cessation. Refuses nicotine patch. --DVT prophylaxis with Lovenox subQ. Discharge Plan: Home - Advance Directives Does patient have a Living Will: No Does patient have a Durable POA for Healthcare: No - Code Status/Comfort Care Code Status Assessed: Yes Physician Review: Patient Assessed, Agree with Above Assessment and Plan Critical Care: No
[2022-12-22 10:20] LABS: Arterial Blood Carboxyhemoglob 1.5 % (0-1.5); Blood Gas Oxyhemoglobin 95.4 % (94-97); Blood O2 Saturation 98.1 % (92-98.5)
[2022-12-22] MEDS ORDERED: DEXMEDETOMIDINE HCL 200 MCG in NA CHLORIDE 0.9% 98 ML IV SCH (10:30)
[2022-12-22] MEDS: INSULIN -REGULAR HUMAN 50 UNIT/0.5 ML ML SQ SCH ×3 (11:30→20:52)
--- NOTE | 2022-12-22 11:46 | RAD REPORT ---
EXAM DESCRIPTION: CT - Thorax Wo Con - 12/22/2022 10:49 am CLINICAL HISTORY: SOB COMPARISON: Thorax Wo Con dated 12/07/2022; Chest For Pe Angio dated 11/22/2022; Thorax Wo Con dated ; Chest For Pe Angio dated 09/10/2022; Chest Single View dated 12/22/2022 TECHNIQUE: Axial thin cut images of the chest were obtained without IV contrast. Multiplanar reforma ts were generated and reviewed. All CT scans are performed using dose optimization technique as appropriate and may include automated exposure control or mA/KV adjustment according to patient size. FINDINGS: No suspicious mass or infiltrate in the lung parenchyma. Subsegmental dependent left lower lobe opacification with volume loss, most suggestive of atelectasis. Improvement of aeration in the right lower lobe, with some residual subsegmental atelectatic changes. No pleural thickening or pleur al effusion. No pneumothorax. Stable peripheral left upper lobe 1.3 centimeter calcified nodule. Left IJ CVC and tracheostomy tube in place. No abnormal mediastinal or hilar masses or lymphadenopathy seen. No significant aortic or pulmonary a rtery findings. Assessment is limited in the absence of IV contrast. No chest wall mass or abnormal axillary lymphadenopathy. Evaluation of the solid abdominal structures reveals no suspicious findings. IMPRESSION: No acute findings in the lung is. Subsegmental dependent left lower lobe opacification suggestive of atelectasis. Some improvement of a eration in the dependent right lower lobe.
[2022-12-22] MEDS ORDERED: ACETAMINOPHEN 325 MG TABLET ONE (12:16)
--- NOTE | 2022-12-22 12:25 | P.CNS ---
Date of Consult: 12/22/22 Reason for Consult: Respiratory failure Chief Complaint: Hypercapnic respiratory failure History of Present Illness: Patient is 62 years of age was has terminal COPD patient has a tracheostomy recently discharged from [facility] to [place] was changed and became unresponsive was admitted with severe hypercapnia with no change in her medication patient developed worsening of her lethargy and was admitted currently alert responsive cooperative gases satisfactory Allergies codeine Allergy (Verified 09/27/22 23:31) Itching methocarbamol [From Robaxin] Allergy (Verified 10/20/22 06:11) Nausea/Vomiting Sulfa (Sulfonamide Antibiotics) Allergy (Verified 09/27/22 23:31) Itching/Hives/Rash tramadol [From Ultram] Adverse Reaction (Verified 09/27/22 23:31) Nausea/Vomiting Home Medications: Cyclobenzaprine [Flexeril*] 10 mg PO TID 05/01/21 Famotidine 40 mg PO DAILY 05/01/21 Furosemide [Lasix*] 40 mg PO DAILY 05/01/21 Hydrocodone Bit/Acetaminophen [Hydrocodon-Acetaminophn 10-325] 1 tab PO Q6H PRN 05/01/21 Ipratropium/Albuterol Sulfate [Iprat-Albut 0.5-3(2.5) mg/3 ml] 3 ml NEB QID 05/01/21 Iron/FA/Vit B-Com W/C [Hemocyte Plus*] 1 tab PO BEDTIME 05/01/21 Levothyroxine [Synthroid*] 0.05 mg PO DAILY 05/01/21 Metformin HCl 500 mg PO BID 05/01/21 PARoxetine HCL [Paroxetine HCl] 40 mg PO DAILY 05/01/21 Pregabalin 300 mg PO BID 05/01/21 Quetiapine [Seroquel*] 50 mg PO BEDTIME 05/01/21 Spironolactone 25 mg PO DAILY 05/01/21 Montelukast Sodium 10 mg PO DAILY 10/20/22 Rosuvastatin [Crestor*] 10 mg PO BEDTIME 10/20/22 Roflumilast [Daliresp*] 500 mcg PO DAILY #30 tab 10/21/22 Insulin Glargine,Hum.rec.anlog [Basaglar Allynikpen U-100] 60 units SQ DAILY 11/23/22 - Past Medical/Surgical History Diabetic: Yes -: COPD -: Chronic diastolic congestive heart failure -: Insulin-dependent diabetes -: Home trach/vent 2/2 chronic hypercapnic respiratory failure -: Hypothyroidism -: Hyperlipidemia -: trach -: -: Hysterectomy -: Left knee surgery Psychosocial/ Personal History: Patient lives at home with family - Family History Father Medical History: Cancer Brother Medical History: Diabetes - Social History Smoking Status: Current every day smoker Alcohol use: No CD- Drugs: Yes Caffeine use: Yes Review of Systems is unable to be obtained Physical Examination General: Alert, Cooperative Respiratory: Clear to auscultation bilaterally, Diminished Cardiovascular: No edema, Regular rate/rhythm, Normal S1 S2 Gastrointestinal: Normal bowel sounds, Soft and benign Laboratory Data (last 24 hrs) 12/22/22 05:58: PT 10.3, INR 0.94, APTT 35.0 12/22/22 05:58: WBC 14.20 H, Hgb 9.1 L, Hct 28.1 L, Plt Count 299 12/22/22 05:58: Sodium 140, Potassium 4.5, BUN 13, Creatinine 0.69, Glucose 257 H, Magnesium 2.1, Total Bilirubin 0.3, AST 14 L, ALT 27, Alkaline Phosphatase 122 H, Lipase 22 - Problems (1) Acute and chronic respiratory failure Current Visit: No Status: Acute Plan: Patient is 62 years of age terminal COPD s/p tracheostomy current admissions with hypoxic hypercapnic respiratory failure only doing better on dexmedetomidine drip per Laila corrected to try patient on her own ventilator and repeat blood gases Labs reviewed bicarb is elevated benefit from some Diamox no significant changes on chest x-ray cultures are pending Qualifiers: Respiratory failure complication: hypoxia and hypercapnia Qualified Code(s): J96.21 - Acute and chronic respiratory failure with hypoxia; J96.22 - Acute and chronic respiratory failure with hypercapnia; J96.22 - Acute and chronic respiratory failure with hypercapnia
[2022-12-22] MEDS ORDERED: ONDANSETRON 4 MG/2 ML VIAL ONE (12:29)
[2022-12-22] MEDS: acetaZOLAMIDE 250 MG TAB PO SCH ×2 (12:29→20:51)
[2022-12-22] MEDS: SPIRONOLACTONE 25 MG TABLET PO SCH (12:31)
[2022-12-22] MEDS: ONDANSETRON 4 MG/2 ML VIAL IV PRN ×2 (12:32→20:11)
[2022-12-22] MEDS: ALBUTEROL 2.5 MG/3 ML NEB SOL NEB SCH ×2 (14:54→20:25)
[2022-12-22] MEDS: IPRATROPIUM BROM 0.5MG/2.5ML NEB SCH ×2 (14:54→20:25)
[2022-12-22 14:55] LABS: Magnesium 2.3 mg/dL (1.6-2.4); Phosphorus 1.8 mg/dL (2.5-4.9); Thyroid Stimulating Hormone 0.421 uIU/mL (0.358-3.740)
[2022-12-22] MEDS: DEXMEDETOMIDINE HCL 1,000 MCG in NA CHLORIDE 0.9% 490 ML IV SCH (15:23)
[2022-12-22] MEDS ORDERED: METHYLPREDNISOLONE 40 MG INJ IV SCH (17:00)
[2022-12-22] MEDS ORDERED: GLUCAGON 1 MG/VIAL IM PRN (17:14)
[2022-12-22] MEDS ORDERED: D10W 250 ML BAG IV PRN (17:14)
[2022-12-22] MEDS: PREGABALIN 150 MG CAP PO SCH (20:51)
[2022-12-22] MEDS: INSULIN GLARGINE 100 UNIT/ML SQ SCH (20:52)
[2022-12-22] MEDS ORDERED: predniSONE 20 MG TAB PO SCH (21:00)
[2022-12-23] MEDS: HYDROCODONE/APAP 5/325 MG TAB PO PRN ×3 (00:06→21:10)
[2022-12-23] MEDS: DEXMEDETOMIDINE HCL 1,000 MCG in NA CHLORIDE 0.9% 490 ML IV SCH ×2 (02:44→17:26)
[2022-12-23] MEDS: ALBUTEROL 2.5 MG/3 ML NEB SOL NEB SCH ×4 (03:05→19:54)
[2022-12-23] MEDS: IPRATROPIUM BROM 0.5MG/2.5ML NEB SCH ×4 (03:05→19:54)
[2022-12-23 06:03] LABS: Absolute Lymphocytes (CBC) 0.4 K/uL (0.7-4.9); Hematocrit 23.7 % (36.0-45.0); Lymphocytes % 4.6 % (15.3-44.8); MCV 87.6 fL (80-100); MPV 7.5 fL (7.6-11.3)
[2022-12-23 06:18] LABS: Albumin 2.7 g/dL (3.4-5.0); Bilirubin Total 0.2 mg/dL (0.2-1.0); Potassium 3.6 mEq/L (3.5-5.1)
[2022-12-23] MEDS ORDERED: KCL 20 MEQ/100 mL IVPB 20 MEQ/100 ML BAG IV SCH (07:00)
--- NOTE | 2022-12-23 07:09 | EKG ---
Test Date: 2022-12-22 Test Time: 06:09:02 Insulation Blower: CARMINE MEASUREMENT RESULTS: Intervals: Rate: 119 RI: 146 QRSD: 78 QT: 298 QTc: 419 [place]: P: 67 RI: 146 QRS: 49 T: 62 INTERPRETIVE STATEMENTS: Sinus tachycardia Low voltage QRS Borderline ECG Compared to ECG 12/07/2022 04:40:33 Low QRS voltage now present Sinus rhythm no longer present Electronically Signed On 12-23-22 07:06:46 CDT by Minh James
[2022-12-23] MEDS: INSULIN LISPRO 100 UNIT/1 ML SQ SCH ×3 (08:55→17:27)
[2022-12-23] MEDS: SPIRONOLACTONE 25 MG TABLET PO SCH (08:56)
[2022-12-23] MEDS: INSULIN -REGULAR HUMAN 50 UNIT/0.5 ML ML SQ SCH ×4 (08:56→21:00)
[2022-12-23] MEDS: ASPIRIN 81 MG CHEWABLE TABLET PO SCH (08:56)
[2022-12-23] MEDS: PREGABALIN 150 MG CAP PO SCH ×2 (08:57→21:10)
[2022-12-23] MEDS: acetaZOLAMIDE 250 MG TAB PO SCH ×2 (08:57→21:10)
[2022-12-23] MEDS: predniSONE 10 MG TAB PO SCH ×2 (08:58→21:10)
[2022-12-23] MEDS ORDERED: ENOXAPARIN 40 MG/0.4 ML SQ SCH (09:00)
[2022-12-23] MEDS: ONDANSETRON 4 MG/2 ML VIAL IV PRN (09:47)
[2022-12-23] MEDS ORDERED: NA CHLORIDE 0.9% 250 ML IV SCH (10:00)
--- NOTE | 2022-12-23 11:58 | P.PN ---
Subjective Date of Service: 12/23/22 Chief Complaint: Respiratory failure Patient's condition is stable we do not tolerate her home vent and was switched to hospital ventilator no new complaints hemodynamically stable on dexmedetomidine drip Review of Systems Respiratory: Shortness of Breath Physical Examination - Vital Signs Temperature: 97.6 F Blood Pressure: 116/85 Pulse: 61 Respirations: 17 Pulse Ox (%): 100 - Physical Exam General: Alert, Cooperative Respiratory: Clear to auscultation bilaterally, Diminished Cardiovascular: No edema, Regular rate/rhythm, Normal S1 S2 - Studies Microbiology Data (last 24 hrs): 12/22/22 05:47 Blood - Blood Blood Culture Gram Stain - Final Assessment And Plan - Current Problems (Diagnosis) (1) Acute and chronic respiratory failure Current Visit: No Status: Acute Plan: Patient admitted with acute on chronic respiratory failure will change to home vent monitor repeat blood gases patient is on Diamox and low-dose spironolactone use dose of prednisone to 10 mg twice a day CT scan is negative Qualifiers: Respiratory failure complication: hypoxia and hypercapnia Qualified Code(s): J96.21 - Acute and chronic respiratory failure with hypoxia; J96.22 - Acute and chronic respiratory failure with hypercapnia; J96.22 - Acute and chronic respiratory failure with hypercapnia Physician Review: Patient Assessed, Agree with Above Assessment and Plan
--- NOTE | 2022-12-23 12:33 | P.PN ---
Subjective Date of Service: 12/23/22 Chief Complaint: Respiratory failure Patient is awake, alert and communicative. No issues overnight. She appears comfortable on the vent. Physical Examination - Vital Signs Temperature: 97.6 F Blood Pressure: 116/85 Pulse: 61 Respirations: 17 Pulse Ox (%): 100 - Studies Microbiology Data (last 24 hrs): 12/22/22 05:47 Blood - Blood Blood Culture Gram Stain - Final Assessment And Plan - Plan Physical Exam General: Alert, Oriented x3, Cooperative, NAD Neck: Supple, 2+ carotid pulse no bruit, No LAD, Without JVD or thyroid abnormality Respiratory: Diminished, no crackles. Cardiovascular: Regular rate/rhythm, Normal S1 S2 Gastrointestinal: Normal bowel sounds, No tenderness Musculoskeletal: No clubbing, No swelling, No tenderness Integumentary: No rashes, No breakdown Neurological: Normal affect, no focal motor deficit. Plan: Acute on chronic respiratory failure with hypercapnia/Acute on chronic COPD exacerbation.: Patient is trach dependent. Pulmonology consulted. Patient placed on dexamethasone drip per computer forensic specialist. Continue nebulizer treatment with albuterol and Atrovent. Vent management per pulmonary. Patient started on Diamox per pulmonary Chronic systolic heart failure. Stable. Continue home medication. Daily weight and strict I/O. Patient started on Diamox per pulmonary DM2 with hyperglycemia. BS monitoring with sliding scale insulin, pre-meal insulin and Lantus. Watch for steroid-induced hyperglycemia. Chronic anemia: Noted drop in hemoglobin to 7.8. Transfuse PRBC for hemoglobin less than 8 in the context of cardiopulmonary disease. Continue to monitor H&H. Hypothyroidism. TSH within normal range Continue Synthroid HLD: Continue statin Nicotine dependence: Patient counseled on tobacco cessation. DVT prophylaxis: Lovenox subQ.
[2022-12-23 14:09] LABS: Magnesium 2.4 mg/dL (1.6-2.4); Phosphorus 2.7 mg/dL (2.5-4.9)
[2022-12-23 15:59] LABS: Arterial Blood Carboxyhemoglob 1.2 % (0-1.5); Blood Gas Oxyhemoglobin 96.8 % (94-97); Blood O2 Saturation 99.4 % (92-98.5)
[2022-12-23 19:21] LABS: Hematocrit 29.2 % (36.0-45.0)
[2022-12-23] MEDS: INSULIN GLARGINE 100 UNIT/ML SQ SCH (21:10)
[2022-12-24] MEDS: ALBUTEROL 2.5 MG/3 ML NEB SOL NEB SCH ×4 (01:01→20:00)
[2022-12-24] MEDS: IPRATROPIUM BROM 0.5MG/2.5ML NEB SCH ×4 (01:01→20:00)
[2022-12-24] MEDS: DEXMEDETOMIDINE HCL 1,000 MCG in NA CHLORIDE 0.9% 490 ML IV SCH ×3 (03:14→23:52)
[2022-12-24 05:52] LABS: Absolute Lymphocytes (CBC) 0.5 K/uL (0.7-4.9); Lymphocytes % 5.2 % (15.3-44.8); MCV 85.6 fL (80-100); MPV 7.7 fL (7.6-11.3); RBC Red Blood Cell Count 3.39 M/uL (3.86-4.86)
[2022-12-24 06:09] LABS: Albumin 2.9 g/dL (3.4-5.0); Phosphorus 2.9 mg/dL (2.5-4.9); Potassium 4.1 mEq/L (3.5-5.1)
[2022-12-24] MEDS: LEVOTHYROXINE SOD 0.05 MG TABLET PO SCH (06:44)
[2022-12-24 07:42] LABS: Blood Morphology Comment NOT SEEN (NOT SEEN); Platelet Estimate ADEQ; White Blood Cell Scan NEUTROPHILIA (OK)
[2022-12-24] MEDS: INSULIN LISPRO 100 UNIT/1 ML SQ SCH ×3 (08:16→16:54)
[2022-12-24] MEDS: INSULIN -REGULAR HUMAN 50 UNIT/0.5 ML ML SQ SCH ×4 (08:16→20:31)
[2022-12-24] MEDS: acetaZOLAMIDE 250 MG TAB PO SCH ×2 (08:17→20:31)
[2022-12-24] MEDS: SPIRONOLACTONE 25 MG TABLET PO SCH (08:17)
[2022-12-24] MEDS: ROFLUMILAST 500 MCG TABLET PO SCH (08:17)
[2022-12-24] MEDS: PARoxetine HCL 10 MG TAB PO SCH (08:17)
[2022-12-24] MEDS: ASPIRIN 81 MG CHEWABLE TABLET PO SCH (08:17)
[2022-12-24] MEDS: PREGABALIN 150 MG CAP PO SCH ×2 (08:17→20:32)
[2022-12-24] MEDS: FAMOTIDINE 20 MG TAB PO SCH (08:18)
[2022-12-24] MEDS: MONTELUKAST 10 MG TAB PO SCH (08:18)
[2022-12-24] MEDS: predniSONE 10 MG TAB PO SCH ×2 (08:18→20:31)
[2022-12-24] MEDS: HYDROCODONE/APAP 5/325 MG TAB PO PRN (11:43)
[2022-12-24 13:04] LABS: Arterial Blood Carboxyhemoglob 1.6 % (0-1.5); Blood Gas Oxyhemoglobin 91.3 % (94-97); Blood O2 Saturation 93.6 % (92-98.5)
[2022-12-24] MEDS ORDERED: HYDROXYZINE HCL 10 MG/5 ML SYRUP UD PO PRN (15:01)
--- NOTE | 2022-12-24 15:19 | RAD REPORT ---
EXAM DESCRIPTION: RAD - Abdomen 1 View (KUB) - 12/24/2022 3:07 pm CLINICAL HISTORY: abdominal pain COMPARISON: None available TECHNIQUE: Single AP view of the abdomen. FINDINGS: Nonobstructive bowel gas pattern, although there is nonspecific mild gaseous distention th roughout segments of small and large bowel loops. No air-fluid levels, free air, or pneumatosis. No s uspicious calcifications. No significant bony abnormality. IMPRESSION: Nonobstructive bowel gas pattern, although there is nonspecific mild gaseous distension.
--- NOTE | 2022-12-24 16:53 | P.PN ---
Subjective Date of Service: 12/24/22 Chief Complaint: Respiratory failure Patient is still dependent on the hospital vent and needing sedation. She has been experiencing episodes of shortness of breath, with tachycardia on the vent. Physical Examination - Vital Signs Temperature: 97 F Blood Pressure: 115/74 Pulse: 60 Respirations: 16 Pulse Ox (%): 100 - Studies Microbiology Data (last 24 hrs): 12/22/22 05:47 Blood - Blood Blood Culture Gram Stain - Final Assessment And Plan - Plan Physical Exam General: Alert, Oriented x3, Cooperative, NAD Neck: Supple, 2+ carotid pulse no bruit, No LAD, Without JVD or thyroid abnormality Respiratory: Diminished, no crackles. Cardiovascular: Regular rate/rhythm, Normal S1 S2 Gastrointestinal: Normal bowel sounds, No tenderness Musculoskeletal: No clubbing, No swelling, No tenderness Integumentary: No rashes, No breakdown Neurological: Normal affect, no focal motor deficit. Plan: Acute on chronic respiratory failure with hypercapnia/Acute on chronic COPD exacerbation.: Patient is trach dependent. Pulmonology Dr. Allen is following Patient placed on Precedex drip per product safety specialist. On prednisone Continue nebulizer treatment with albuterol and Atrovent. Vent management per pulmonary. On Diamox per pulmonary Chronic systolic heart failure. Stable. Continue home medication. Daily weight and strict I/O. Patient started on Diamox per pulmonary DM2 with hyperglycemia. BS monitoring with sliding scale insulin, pre-meal insulin and Lantus. Watch for steroid-induced hyperglycemia. Chronic anemia: Noted drop in hemoglobin to 7.8. Status post 1 unit PRBC transfusion. Continue to monitor H&H. Hypothyroidism. TSH within normal range Continue Synthroid HLD: Continue statin DVT prophylaxis: Lovenox subQ.
[2022-12-24] MEDS: QUETIAPINE 25 MG TAB PO SCH (20:31)
[2022-12-24] MEDS: INSULIN GLARGINE 100 UNIT/ML SQ SCH (20:31)
[2022-12-24] MEDS: ALPRAZOLAM 1 MG TABLET PO PRN (21:24)
[2022-12-25] MEDS: HYDROCODONE/APAP 5/325 MG TAB PO PRN (01:06)
[2022-12-25] MEDS: ALBUTEROL 2.5 MG/3 ML NEB SOL NEB SCH ×2 (02:50→09:37)
[2022-12-25] MEDS: IPRATROPIUM BROM 0.5MG/2.5ML NEB SCH ×4 (02:50→19:45)
[2022-12-25 04:59] VITALS: BMI 39.7
[2022-12-25 05:05] LABS: Hematocrit 28.9 % (36.0-45.0)
[2022-12-25 05:35] LABS: Albumin 2.8 g/dL (3.4-5.0); Magnesium 2.4 mg/dL (1.6-2.4); Phosphorus 3.6 mg/dL (2.5-4.9)
[2022-12-25] MEDS: LEVOTHYROXINE SOD 0.05 MG TABLET PO SCH (05:40)
[2022-12-25] MEDS: FAMOTIDINE 20 MG TAB PO SCH (08:29)
[2022-12-25] MEDS: predniSONE 10 MG TAB PO SCH ×2 (08:30→21:38)
[2022-12-25] MEDS: SPIRONOLACTONE 25 MG TABLET PO SCH (08:30)
[2022-12-25] MEDS: MONTELUKAST 10 MG TAB PO SCH (08:32)
[2022-12-25] MEDS: ASPIRIN 81 MG CHEWABLE TABLET PO SCH (08:32)
[2022-12-25] MEDS: PARoxetine HCL 10 MG TAB PO SCH (08:32)
[2022-12-25] MEDS: PREGABALIN 150 MG CAP PO SCH ×2 (08:32→21:38)
[2022-12-25] MEDS: ROFLUMILAST 500 MCG TABLET PO SCH (08:32)
[2022-12-25] MEDS: acetaZOLAMIDE 250 MG TAB PO SCH ×2 (08:32→21:38)
[2022-12-25] MEDS: INSULIN LISPRO 100 UNIT/1 ML SQ SCH ×3 (08:33→16:09)
[2022-12-25] MEDS: INSULIN -REGULAR HUMAN 50 UNIT/0.5 ML ML SQ SCH ×4 (08:36→20:36)
[2022-12-25] MEDS: ALPRAZOLAM 1 MG TABLET PO PRN ×3 (10:48→21:38)
--- NOTE | 2022-12-25 10:48 | P.PN ---
Subjective Date of Service: 12/25/22 Chief Complaint: Respiratory failure Patient is dependent on the hospital vent. He was tried on a new home vent but she lasted only 45 minutes per nursing staff and developed tachycardia and tachypnea. She is currently comfortable on pressure control setting. Physical Examination - Vital Signs Temperature: 96.1 F Blood Pressure: 136/76 Pulse: 49 Respirations: 15 Pulse Ox (%): 99 - Studies Microbiology Data (last 24 hrs): 12/22/22 05:47 Blood - Blood Blood Culture Gram Stain - Final Assessment And Plan - Plan Physical Exam General: Alert, Oriented x3, Cooperative, NAD Neck: Supple, 2+ carotid pulse no bruit, No LAD, Without JVD or thyroid abnormality Respiratory: Diminished, no crackles. Cardiovascular: Regular rate/rhythm, Normal S1 S2 Gastrointestinal: Normal bowel sounds, No tenderness Musculoskeletal: No clubbing, No swelling, No tenderness Integumentary: No rashes, No breakdown Neurological: Normal affect, no focal motor deficit. Plan: Acute on chronic respiratory failure with hypercapnia/Acute on chronic COPD exacerbation.: Patient is trach dependent. Pulmonology Dr. Allen is following Patient placed on Precedex drip per weight loss sales consultant. Wean off Precedex drip. On prednisone Continue nebulizer treatment with albuterol and Atrovent. Vent management per pulmonary. On Diamox per pulmonary. Bicarb level improved. Chronic systolic heart failure. Stable. Continue home medication. Daily weight and strict I/O. Patient started on Diamox per pulmonary DM2 with hyperglycemia. BS monitoring with sliding scale insulin, pre-meal insulin and Lantus. Watch for steroid-induced hyperglycemia. Chronic anemia: Noted drop in hemoglobin to 7.8. Status post 1 unit PRBC transfusion. Continue to monitor H&H. Hypothyroidism. TSH within normal range Continue Synthroid HLD: Continue statin DVT prophylaxis: Lovenox subQ.
--- NOTE | 2022-12-25 11:09 | P.PN ---
Subjective Date of Service: 12/24/22 Chief Complaint: Respiratory failure Patient is not tolerating home vent spite adjustments contacted [facility] in [place] [employer] to exchange her home vent patient is on dexmedetomidine drip Review of Systems is unable to be obtained Physical Examination - Vital Signs Temperature: 96.1 F Blood Pressure: 136/76 Pulse: 49 Respirations: 15 Pulse Ox (%): 99 - Physical Exam General: Alert, Cooperative Respiratory: Clear to auscultation bilaterally, Diminished Cardiovascular: No edema, Regular rate/rhythm, Normal S1 S2 - Studies Microbiology Data (last 24 hrs): 12/22/22 05:47 Blood - Blood Blood Culture Gram Stain - Final Assessment And Plan - Current Problems (Diagnosis) (1) Acute and chronic respiratory failure Current Visit: No Status: Acute Plan: Patient admitted with acute on chronic respiratory failure tolerating home vent settings were altered as patient still did not tolerated contacted [facility] they were supposed to exchange the vent in the evening hemoglobin stable bicarbonate has declined blood gases reviewed CO2 around 67 which is at her baseline vital signs stable discussed with the Qualifiers: Respiratory failure complication: hypoxia and hypercapnia Qualified Code(s): J96.21 - Acute and chronic respiratory failure with hypoxia; J96.22 - Acute and chronic respiratory failure with hypercapnia; J96.22 - Acute and chronic respiratory failure with hypercapnia Physician Review: Patient Assessed, Agree with Above Assessment and Plan
--- NOTE | 2022-12-25 11:11 | P.PN ---
Subjective Date of Service: 12/25/22 Chief Complaint: Respiratory failure Patient's event was changed last night we will try her on her home vent no other complaint Review of Systems is unable to be obtained Physical Examination - Vital Signs Temperature: 96.1 F Blood Pressure: 136/76 Pulse: 49 Respirations: 15 Pulse Ox (%): 99 - Physical Exam General: Alert, Cooperative Respiratory: Clear to auscultation bilaterally, Diminished - Studies Microbiology Data (last 24 hrs): 12/22/22 05:47 Blood - Blood Blood Culture Gram Stain - Final Assessment And Plan - Current Problems (Diagnosis) (1) Acute and chronic respiratory failure Current Visit: No Status: Acute Plan: Respiratory failure will try home vent chemistries reviewed hemoglobin stable patient was started on Xanax yesterday some of her home medications resumed is on low-dose prednisone spironolactone and Diamox eating and drinking on a pressure control mode wean off dexmedetomidine Qualifiers: Respiratory failure complication: hypoxia and hypercapnia Qualified Code(s): J96.21 - Acute and chronic respiratory failure with hypoxia; J96.22 - Acute and chronic respiratory failure with hypercapnia; J96.22 - Acute and chronic respiratory failure with hypercapnia Physician Review: Patient Assessed, Agree with Above Assessment and Plan
[2022-12-25] MEDS: ARFORMOTEROL TARTRATE 15 MCG/2 ML VIAL.NEB NEB SCH ×2 (11:52→19:45)
[2022-12-25] MEDS ORDERED: ALBUTEROL 2.5 MG/3 ML NEB SOL NEB PRN (11:53)
[2022-12-25] MEDS: ENOXAPARIN 40 MG/0.4 ML SQ SCH (12:27)
[2022-12-25] MEDS ORDERED: HYDROCODONE/APAP 10/325 TAB PO PRN (13:31)
[2022-12-25] MEDS: ONDANSETRON 4 MG/2 ML VIAL IV PRN (15:09)
[2022-12-25] MEDS: INSULIN GLARGINE 100 UNIT/ML SQ SCH (20:37)
[2022-12-25] MEDS ORDERED: POLYETHYL GLY 3350 17 GM/DOSE PO SCH (21:00)
[2022-12-25] MEDS ORDERED: SENOSIDES 8.6 MG TAB PO SCH (21:00)
[2022-12-25 21:05] LABS: Blood Gas Oxyhemoglobin 93.6 % (94-97); Blood O2 Saturation 95.9 % (92-98.5)
[2022-12-25] MEDS: QUETIAPINE 25 MG TAB PO SCH (21:38)
[2022-12-26] MEDS: HYDROCODONE/APAP 10/325 TAB PO PRN ×3 (00:15→20:25)
[2022-12-26] MEDS: IPRATROPIUM BROM 0.5MG/2.5ML NEB SCH ×4 (01:10→20:00)
[2022-12-26 05:08] LABS: Hematocrit 29.4 % (36.0-45.0)
[2022-12-26 05:22] LABS: Albumin 2.7 g/dL (3.4-5.0); Magnesium 2.3 mg/dL (1.6-2.4); Phosphorus 2.8 mg/dL (2.5-4.9); Potassium 3.2 mEq/L (3.5-5.1)
[2022-12-26] MEDS ORDERED: POTASSIUM 25 MEQ EFFERV TAB PO ONE (05:31)
[2022-12-26] MEDS: LEVOTHYROXINE SOD 0.05 MG TABLET PO SCH (05:53)
[2022-12-26] MEDS: INSULIN -REGULAR HUMAN 50 UNIT/0.5 ML ML SQ SCH ×4 (07:30→20:46)
[2022-12-26] MEDS: INSULIN LISPRO 100 UNIT/1 ML SQ SCH ×3 (08:00→16:24)
[2022-12-26] MEDS: ENOXAPARIN 40 MG/0.4 ML SQ SCH (08:18)
[2022-12-26] MEDS: acetaZOLAMIDE 250 MG TAB PO SCH ×2 (08:18→20:25)
[2022-12-26] MEDS: PREGABALIN 150 MG CAP PO SCH ×2 (08:18→20:26)
[2022-12-26] MEDS: ROFLUMILAST 500 MCG TABLET PO SCH (08:19)
[2022-12-26] MEDS: PARoxetine HCL 10 MG TAB PO SCH (08:19)
[2022-12-26] MEDS: ASPIRIN 81 MG CHEWABLE TABLET PO SCH (08:19)
[2022-12-26] MEDS: MONTELUKAST 10 MG TAB PO SCH (08:19)
[2022-12-26] MEDS: SPIRONOLACTONE 25 MG TABLET PO SCH (08:19)
[2022-12-26] MEDS: FAMOTIDINE 20 MG TAB PO SCH (08:19)
[2022-12-26] MEDS: ARFORMOTEROL TARTRATE 15 MCG/2 ML VIAL.NEB NEB SCH ×2 (08:21→20:00)
[2022-12-26] MEDS: predniSONE 10 MG TAB PO SCH ×2 (08:27→20:25)
[2022-12-26] MEDS: ALPRAZOLAM 1 MG TABLET PO PRN ×3 (08:55→20:25)
--- NOTE | 2022-12-26 12:06 | P.PN ---
Subjective Date of Service: 12/26/22 Chief Complaint: Respiratory failure No new complain. Patient is currently on her home vent pressure control. No issues overnight. She is awake and interactive. Physical Examination - Vital Signs Temperature: 98.8 F Blood Pressure: 101/62 Pulse: 89 Respirations: 13 Pulse Ox (%): 96 - Studies Microbiology Data (last 24 hrs): 12/22/22 05:47 Blood - Blood Aerobic Blood Culture - Final 12/22/22 05:47 Blood - Blood Blood Culture Gram Stain - Final 12/22/22 05:47 Blood - Blood Anaerobic Blood Culture - Final No growth in 5 days. Assessment And Plan - Plan Physical Exam General: Alert, Oriented x3, Cooperative, NAD Respiratory: Diminished, no crackles. Cardiovascular: Regular rate/rhythm, Normal S1 S2 Gastrointestinal: Normal bowel sounds, No tenderness Musculoskeletal: No clubbing, No swelling, No tenderness Integumentary: No rashes, No breakdown Neurological: Normal affect, no focal motor deficit. Plan: Acute on chronic respiratory failure with hypercapnia/Acute on chronic COPD exacerbation.: Patient is trach dependent. Pulmonology Dr. Allen is following Patient placed on Precedex drip per healthcare facility administrator. On prednisone Continue nebulizer treatment with albuterol and Atrovent. Vent management per pulmonary. On Diamox per pulmonary. Bicarb level improved. Chronic systolic heart failure. Stable. Continue home medication. Daily weight and strict I/O. Patient started on Diamox per pulmonary DM2 with hyperglycemia. BS monitoring with sliding scale insulin, pre-meal insulin and Lantus. Watch for steroid-induced hyperglycemia. Chronic anemia: Noted drop in hemoglobin to 7.8. Status post 1 unit PRBC transfusion. Posttransfusion hemoglobin is stable. Continue to monitor H&H. Hypothyroidism. TSH within normal range Continue Synthroid HLD: Continue statin DVT prophylaxis: Lovenox subQ.
[2022-12-26 12:15] LABS: Arterial Blood Carboxyhemoglob 1.1 % (0-1.5); Blood Gas Oxyhemoglobin 93.8 % (94-97); Blood O2 Saturation 96.3 % (92-98.5)
[2022-12-26 17:44] LABS: Arterial Blood Carboxyhemoglob 1.5 % (0-1.5); Blood Gas Oxyhemoglobin 94.4 % (94-97); Blood O2 Saturation 96.8 % (92-98.5)
[2022-12-26] MEDS: QUETIAPINE 25 MG TAB PO SCH (20:25)
[2022-12-26] MEDS: INSULIN GLARGINE 100 UNIT/ML SQ SCH (20:46)
[2022-12-26 22:33] LABS: Arterial Blood Carboxyhemoglob 1.3 % (0-1.5); Blood Gas Oxyhemoglobin 85.6 % (94-97); Blood O2 Saturation 87.7 % (92-98.5)
[2022-12-27] MEDS: IPRATROPIUM BROM 0.5MG/2.5ML NEB SCH ×4 (02:00→19:35)
[2022-12-27 05:12] LABS: Hematocrit 28.4 % (36.0-45.0)
[2022-12-27 05:23] LABS: Magnesium 2.1 mg/dL (1.6-2.4); Phosphorus 2.1 mg/dL (2.5-4.9); Potassium 3.5 mEq/L (3.5-5.1)
[2022-12-27] MEDS ORDERED: POTASSIUM PHOS IN 0.9 % NACL 15 MMOL/250 ML BAG IV ONE (05:52)
[2022-12-27] MEDS: LEVOTHYROXINE SOD 0.05 MG TABLET PO SCH (06:30)
[2022-12-27] MEDS: ARFORMOTEROL TARTRATE 15 MCG/2 ML VIAL.NEB NEB SCH ×2 (08:16→19:35)
[2022-12-27] MEDS: ENOXAPARIN 40 MG/0.4 ML SQ SCH (08:23)
[2022-12-27] MEDS: INSULIN LISPRO 100 UNIT/1 ML SQ SCH ×3 (08:23→17:37)
[2022-12-27] MEDS: ASPIRIN 81 MG CHEWABLE TABLET PO SCH (08:24)
[2022-12-27] MEDS: predniSONE 10 MG TAB PO SCH (08:24)
[2022-12-27] MEDS: PARoxetine HCL 10 MG TAB PO SCH (08:24)
[2022-12-27] MEDS: SPIRONOLACTONE 25 MG TABLET PO SCH (08:24)
[2022-12-27] MEDS: acetaZOLAMIDE 250 MG TAB PO SCH (08:24)
[2022-12-27] MEDS: ROFLUMILAST 500 MCG TABLET PO SCH (08:25)
[2022-12-27] MEDS: PREGABALIN 150 MG CAP PO SCH ×2 (08:25→21:13)
[2022-12-27] MEDS: MONTELUKAST 10 MG TAB PO SCH (08:25)
[2022-12-27] MEDS: FAMOTIDINE 20 MG TAB PO SCH (08:25)
[2022-12-27] MEDS: INSULIN -REGULAR HUMAN 50 UNIT/0.5 ML ML SQ SCH ×4 (08:26→21:00)
--- NOTE | 2022-12-27 10:35 | P.PN ---
Subjective Date of Service: 12/27/22 Chief Complaint: Respiratory failure Patient is still not tolerating her home vent. She has been tolerating pressure control mode more. No issues overnight. She was seen eating her breakfast. Physical Examination - Vital Signs Temperature: 96.1 F Blood Pressure: 107/54 Pulse: 77 Respirations: 17 Pulse Ox (%): 98 - Studies Microbiology Data (last 24 hrs): 12/22/22 05:58 Blood - Blood Aerobic Blood Culture - Final No growth in 5 days. 12/22/22 05:58 Blood - Blood Anaerobic Blood Culture - Final No growth in 5 days. 12/22/22 05:47 Blood - Blood Aerobic Blood Culture - Final 12/22/22 05:47 Blood - Blood Blood Culture Gram Stain - Final 12/22/22 05:47 Blood - Blood Anaerobic Blood Culture - Final No growth in 5 days. Assessment And Plan - Plan Physical Exam General: Alert, Oriented x3, Cooperative, NAD Respiratory: Diminished, no crackles. Cardiovascular: Regular rate/rhythm, Normal S1 S2 Gastrointestinal: Normal bowel sounds, No tenderness Musculoskeletal: No swelling, No tenderness Integumentary: No rashes, No breakdown Neurological: Normal affect, no focal motor deficit. Plan: Acute on chronic respiratory failure with hypercapnia/Acute on chronic COPD exacerbation.: Patient is trach dependent. Pulmonology Dr. Allen is following Off Precedex drip. On prednisone Continue nebulizer treatment with albuterol and Atrovent. Vent management per pulmonary. Patient to use her home vent as much as possible. On Diamox per pulmonary. Bicarb level improved. Chronic systolic heart failure. Stable. Continue home medication. Daily weight and strict I/O. Patient started on Diamox per pulmonary DM2 with hyperglycemia. BS monitoring with sliding scale insulin, pre-meal insulin and Lantus. Watch for steroid-induced hyperglycemia. Chronic anemia: Noted drop in hemoglobin to 7.8. Status post 1 unit PRBC transfusion. Posttransfusion hemoglobin is stable. Continue to monitor H&H. Hypothyroidism. TSH within normal range Continue Synthroid HLD: Continue statin DVT prophylaxis: Lovenox subQ.
--- NOTE | 2022-12-27 10:35 | RAD REPORT ---
EXAM DESCRIPTION: RADChest Single View12/27/2022 10:14 am CLINICAL HISTORY: Resp failure COMPARISON: Abdomen 1 View (KUB) dated 12/24/2022; Chest Single View dated 12/22/2022; Chest Single Vie w dated 12/22/2022; Chest Single View dated 12/07/2022; Thorax Wo Con dated 12/22/2022 TECHNIQUE: Portable AP view of the chest. FINDINGS: Stable perihilar streaky opacities and left more than right basilar atelectasis. Patient r otation again limits evaluation. Stable calcified peripheral left mid lung nodule. Stable positioning of left IJ CVC and tracheostomy in. No pneumothorax or effusion. The cardiomediastinal contours are unremarkable. IMPRESSION: No acute cardiopulmonary process, apart from stable centrally prominent interstitium. No significant interval change.
--- NOTE | 2022-12-27 11:14 | P.PN ---
Subjective Date of Service: 12/27/22 Chief Complaint: Respiratory failure Patient is very alert responsive cooperative back on her home ventilator last night developed respiratory distress and was switched back to the hospital ventilator not sure what the etiology is Review of Systems is unable to be obtained Physical Examination - Vital Signs Temperature: 96.1 F Blood Pressure: 107/54 Pulse: 77 Respirations: 17 Pulse Ox (%): 98 - Physical Exam General: Alert, Cooperative Respiratory: Clear to auscultation bilaterally Cardiovascular: No edema, Regular rate/rhythm - Studies Microbiology Data (last 24 hrs): 12/22/22 05:58 Blood - Blood Aerobic Blood Culture - Final No growth in 5 days. 12/22/22 05:58 Blood - Blood Anaerobic Blood Culture - Final No growth in 5 days. 12/22/22 05:47 Blood - Blood Aerobic Blood Culture - Final 12/22/22 05:47 Blood - Blood Blood Culture Gram Stain - Final 12/22/22 05:47 Blood - Blood Anaerobic Blood Culture - Final No growth in 5 days. Assessment And Plan - Current Problems (Diagnosis) (1) Acute and chronic respiratory failure Current Visit: No Status: Acute Plan: Patient is 62 years of age and with terminal COPD respiratory failure does develop respiratory distress at night with hypoxemia tachycardia can tolerate her home ventilator all day yesterday till her left this morning she is doing well on her home ventilator is not triggering of any alarms the blood gases are satisfactory on her home ventilation we will continue with her home ventilator ENT consult DC Diamox and spironolactone for now no acute changes on chest x-ray Labs unremarkable med list reviewed reduce dose of prednisone Qualifiers: Respiratory failure complication: hypoxia and hypercapnia Qualified Code(s): J96.21 - Acute and chronic respiratory failure with hypoxia; J96.22 - Acute and chronic respiratory failure with hypercapnia; J96.22 - Acute and chronic respiratory failure with hypercapnia Physician Review: Patient Assessed, Agree with Above Assessment and Plan
[2022-12-27] MEDS ORDERED: ALBUTEROL 2.5 MG/3 ML NEB SOL NEB PRN (13:00)
[2022-12-27] MEDS: HYDROCODONE/APAP 10/325 TAB PO PRN ×2 (15:22→21:13)
[2022-12-27] MEDS: INSULIN GLARGINE 100 UNIT/ML SQ SCH (21:00)
[2022-12-27] MEDS: QUETIAPINE 25 MG TAB PO SCH (21:13)
[2022-12-27] MEDS: ALPRAZOLAM 1 MG TABLET PO PRN (21:13)
[2022-12-28] MEDS: IPRATROPIUM BROM 0.5MG/2.5ML NEB SCH ×2 (01:45→08:30)
[2022-12-28 05:20] LABS: Magnesium 2.2 mg/dL (1.6-2.4); Potassium 3.3 mEq/L (3.5-5.1)
[2022-12-28] MEDS: LEVOTHYROXINE SOD 0.05 MG TABLET PO SCH (05:28)
--- NOTE | 2022-12-28 07:03 | P.OP ---
Date of Service: 12/27/22 Consult request for trach evalaution from Dr Allen HPI: Long standing trach placed at unknown facility on unknown date by unknown surgeon but present based on chart review/present on CXR since at least 2020. Patient with severe COPD and mulitple admissions to [facility] over the last 6 months for SOB on home vent. Nurse reports patient was on home vent all day yesterday without event but overnight developed respiratory changes including hypercapnia and respiratory acidosis. Chart review shows around [id number] that the patient was tahcycardic and hypoxic and subjectively SOB on the vent and ABG ordered with patient placed on hopsital ventilator at that time. Team requesting exam/evaluation of trach. No family at bedside. Communication with patient limited. No reported bleeding from trach site. No reported leaks or excessive vent pressures. Exam: Patient asleep but arouses easily, on home vent. Obese neck with generou s submental soft tissue. 6.0 Shiley cuffed tube with minimal aid in cuff. No audible leak. No audible voicing around trach. No granulation tissue externally. Trach tube not removed. Assessment: I do not see any obvious issuess with trach tube at this time. In speaking with RT, I am wondering if there is a positioning issue overnight that might have caused some obstruction or repositioning with the tube. I remain available if need for trach tube change is desired. Our facility now carries the new Shiley design of trach tube but I do not feel that would likely make a big difference overall.
--- NOTE | 2022-12-28 07:24 | RAD REPORT ---
EXAM DESCRIPTION: Arsen Single View12/28/2022 5:32 am CLINICAL HISTORY: Respiratory failure COMPARISON: December 27, 2022 and December 22, 2022 FINDINGS: The lungs appear clear of acute infiltrate. The heart is normal size Calcified granuloma left lung. Central venous lines in place IMPRESSION: No acute abnormalities displayed
[2022-12-28] MEDS: INSULIN -REGULAR HUMAN 50 UNIT/0.5 ML ML SQ SCH ×2 (07:30→11:16)
[2022-12-28] MEDS ORDERED: POTASSIUM 25 MEQ EFFERV TAB PO ONE (07:40)
[2022-12-28] MEDS ORDERED: POTASSIUM PHOS IN 0.9 % NACL 15 MMOL/250 ML BAG IV ONE (07:40)
[2022-12-28] MEDS: ARFORMOTEROL TARTRATE 15 MCG/2 ML VIAL.NEB NEB SCH (08:30)
[2022-12-28] MEDS: ASPIRIN 81 MG CHEWABLE TABLET PO SCH (08:31)
[2022-12-28] MEDS: PARoxetine HCL 10 MG TAB PO SCH (08:31)
[2022-12-28] MEDS: INSULIN LISPRO 100 UNIT/1 ML SQ SCH ×2 (08:31→11:17)
[2022-12-28] MEDS: PREGABALIN 150 MG CAP PO SCH (08:32)
[2022-12-28] MEDS: MONTELUKAST 10 MG TAB PO SCH (08:32)
[2022-12-28] MEDS: ROFLUMILAST 500 MCG TABLET PO SCH (08:32)
[2022-12-28] MEDS: FAMOTIDINE 20 MG TAB PO SCH (08:32)
[2022-12-28] MEDS: ENOXAPARIN 40 MG/0.4 ML SQ SCH (08:33)
[2022-12-28] MEDS ORDERED: acetaZOLAMIDE 250 MG TAB PO SCH (09:00)
[2022-12-28] MEDS ORDERED: predniSONE 10 MG TAB PO SCH (09:00)
--- NOTE | 2022-12-28 09:17 | P.DS ---
Admission Date: 12/22/22 Discharge Date: 12/28/22 Disposition: DC HOME/HOME HEALTH CARE Discharge Condition: FAIR Reason for Admission: Respiratory failure Brief History of Present Illness: Patient is a 62-year-old female with a past medical history significant for severe COPD, tracheostomy dependence, chronic hypercapnic respiratory failure, chronic diastolic CHF, DM 2 who presented with complaint of shortness of breath. Patient was discharged from [facility] where her tracheostomy was exchanged. Spouse reported the patient started having shortness of breath which became worse over time. Spouse reported that patient had associated signs and symptoms of nausea. Her chest x-ray done in the emergency department reported small right pleural effusion versus pleural thickening. Subsegmental atelectasis right lung base. Patient was placed on the hospital vent and admitted for further management. Hospital Course: Patient admitted to the medical floor and the following medical problems addressed: Acute on chronic respiratory failure with hypercapnia/Acute on chronic COPD exacerbation.: Patient is trach dependent. Seen and followed by pulmonology Dr. Allen. Patient was alternated between the hospital vent and her home vent. Her home vent was replaced because patient was not tolerating it. She needed Precedex drip briefly for agitation Patient also placed on prednisone She was treated with nebulizers-albuterol and Atrovent. She was also started on Diamox per pulmonary. She had elevated bicarb which improved. Patient has tolerated her new home vent for 24 hours now. Vent mode is pressure control. Chronic systolic heart failure. Stable. Continued home medication. Patient started on Diamox per pulmonary DM2 with hyperglycemia. BS monitoring with sliding scale insulin, pre-meal insulin and Lantus done. Watch for steroid-induced hyperglycemia. Chronic anemia: Noted drop in hemoglobin to 7.8. Status post 1 unit PRBC transfusion. Posttransfusion hemoglobin was stable. Hypothyroidism. TSH within normal range Continued home dose Synthroid HLD: Continued home dose statin Vital Signs/Physical Exam: Temp Pulse Resp BP Pulse Ox 97.4 F 80 18 102/56 L 98 12/28/22 04:00 12/28/22 06:00 12/28/22 06:00 12/28/22 06:00 12/28/22 06:00 General: Alert, In no apparent distress Neck: Other (Tracheostomy vent) Respiratory: Clear to auscultation bilaterally, Normal air movement Cardiovascular: No edema Gastrointestinal: Normal bowel sounds, Soft and benign, Non-distended Musculoskeletal: No swelling Integumentary: No cyanosis Laboratory Data at Discharge: WBC 10.50 thou/uL (4.3-10.9) 12/24/22 04:40 Hgb 9.1 g/dL (12.0-15.0) L 12/27/22 04:45 Hct 28.4 % (36.0-45.0) L 12/27/22 04:45 Plt Count 226 thou/uL (152-406) 12/24/22 04:40 PT 10.3 SECONDS (9.5-12.5) 12/22/22 05:58 INR 0.94 12/22/22 05:58 APTT 35.0 SECONDS (24.3-36.9) 12/22/22 05:58 Sodium 141 mEq/L (136-145) 12/28/22 04:30 Potassium 3.3 mEq/L (3.5-5.1) L 12/28/22 04:30 BUN 22 mg/dL (7-18) H 12/28/22 04:30 Creatinine 0.66 mg/dL (0.55-1.02) 12/28/22 04:30 Glucose 134 mg/dL (74-106) H 12/28/22 04:30 Phosphorus 2.0 mg/dL (2.5-4.9) L 12/28/22 04:30 Magnesium 2.2 mg/dL (1.6-2.4) 12/28/22 04:30 Total Bilirubin 0.2 mg/dL (0.2-1.0) 12/23/22 05:00 AST 6 U/L (15-37) L 12/23/22 05:00 ALT 17 U/L (13-56) 12/23/22 05:00 Alkaline Phosphatase 94 U/L (45-117) D 12/23/22 05:00 Lipase 22 U/L (13-75) 12/22/22 05:58 Home Medications: Cyclobenzaprine [Flexeril*] 10 mg PO TID 05/01/21 Hydrocodone Bit/Acetaminophen [Hydrocodon-Acetaminophn 10-325] 1 tab PO Q6H PRN 05/01/21 Ipratropium/Albuterol Sulfate [Iprat-Albut 0.5-3(2.5) mg/3 ml] 3 ml NEB QID 05/01/21 Levothyroxine [Synthroid*] 0.05 mg PO DAILY 05/01/21 Metformin HCl 500 mg PO DAILY 05/01/21 PARoxetine HCL [Paroxetine HCl] 40 mg PO DAILY 05/01/21 Pregabalin 300 mg PO BID 05/01/21 Quetiapine [Seroquel*] 50 mg PO BEDTIME 05/01/21 Spironolactone 25 mg PO DAILY 05/01/21 Montelukast Sodium 10 mg PO DAILY 10/20/22 Rosuvastatin [Crestor*] 10 mg PO BEDTIME 10/20/22 Insulin Detemir [Levemir] 60 units SQ DAILY 12/24/22 Ondansetron [Ondansetron Odt] 8 mg PO Q8H PRN 12/24/22 Albuterol Neb [Proventil 0.083% Neb Soln] 2.5 mg NEB [id number] PRN #120 amp 12/28/22 Ipratropium Neb [Atrovent*] 0.5 mg NEB [id number] #120 amp 12/28/22 Roflumilast [Daliresp*] 500 mcg PO DAILY 12/28/22 acetaZOLAMIDE [Diamox*] 250 mg PO DAILY #30 tab 12/28/22 predniSONE [Deltasone*] 10 mg PO DAILY #14 tab 12/28/22 New Medications: Ipratropium Neb [Atrovent*] 0.5 mg NEB [id number] #120 amp Albuterol Neb [Proventil 0.083% Neb Soln] 2.5 mg NEB [id number] PRN #120 amp PRN Reason: Shortness Of Breath predniSONE [Deltasone*] 10 mg PO DAILY #14 tab acetaZOLAMIDE [Diamox*] 250 mg PO DAILY #30 tab Diet: ADA Activity: Fall precautions Followup: Unknown,U [Primary Care Provider] - 1-2 Weeks William Powell FNP [OUTSIDE PHYSICIAN] - 1-2 Weeks Time spent managing pt's care (in minutes): 38
[2022-12-28 09:51] VITALS: TEMP 97.9
[2022-12-28 10:59] VITALS: O2SAT 98
--- NOTE | 2022-12-28 12:02 | P.PN ---
Subjective Date of Service: 12/27/22 Chief Complaint: Respiratory failure So far this morning patient is doing well alert responsive cooperative tolerating home ventilator Review of Systems is unable to be obtained Physical Examination - Vital Signs Temperature: 97.9 F Blood Pressure: 121/69 Pulse: 97 Respirations: 14 Pulse Ox (%): 98 - Physical Exam General: Alert, Cooperative Respiratory: Clear to auscultation bilaterally, Diminished Cardiovascular: No edema, Regular rate/rhythm Assessment And Plan - Current Problems (Diagnosis) (1) Acute and chronic respiratory failure Current Visit: No Status: Acute Plan: Patient has improved now tolerating her home ventilator patient tolerates pressure controlled better than assist control. Also the Diamox will be reduced to once a day chest x-ray no change reduce prednisone to once a day Qualifiers: Respiratory failure complication: hypoxia and hypercapnia Qualified Code(s): J96.21 - Acute and chronic respiratory failure with hypoxia; J96.22 - Acute and chronic respiratory failure with hypercapnia; J96.22 - Acute and chronic respiratory failure with hypercapnia Physician Review: Patient Assessed, Agree with Above Assessment and Plan
[2022-12-28 14:04] VITALS: BP 138/90
== END 2022-12-28 14:00 | disposition home health service (06) | DRG 207 ==
LOC: ER 05:31 → ERHOLD 09:44 → 3RD-ICU 14:06
PROVIDERS: ADMIT Internal Medicine; ATTEND Internal Medicine
PROC: 5A1955Z Respiratory Ventilation, Greater than 96 Consecutive Hours (ICD-10-PCS; principal; 2022-12-22)
PROC: 30233N1 Transfusion of Nonautologous Red Blood Cells into Peripheral Vein, Percutaneous Approach (ICD-10-PCS; 2022-12-23)
DX: J96.22 Acute and chronic respiratory failure with hypercapnia (principal); J44.1 Chronic obstructive pulmonary disease with (acute) exacerbation; I50.32 Chronic diastolic (congestive) heart failure; Z68.41 Body mass index [BMI] 40.0-44.9, adult; E87.29 Other acidosis; J96.21 Acute and chronic respiratory failure with hypoxia; E66.01 Morbid (severe) obesity due to excess calories; E03.9 Hypothyroidism, unspecified; E78.5 Hyperlipidemia, unspecified; D64.9 Anemia, unspecified; E11.65 Type 2 diabetes mellitus with hyperglycemia; D72.829 Elevated white blood cell count, unspecified; F17.210 Nicotine dependence, cigarettes, uncomplicated; Z93.0 Tracheostomy status; Z79.4 Long term (current) use of insulin; Z88.5 Allergy status to narcotic agent; Z88.1 Allergy status to other antibiotic agents; Z88.8 Allergy status to other drugs, medicaments and biological substances; Z71.6 Tobacco abuse counseling; Z79.84 Long term (current) use of oral hypoglycemic drugs; Z79.890 Hormone replacement therapy; Z79.899 Other long term (current) drug therapy; Z90.710 Acquired absence of both cervix and uterus
CPT/HCPCS: 36415; 36430; 51702; 71045; 71250; 74018; 80048; 80053; 80069; 80076; 81003; 82550; 82805; 82947; 83605; 83690; 83735; 83880; 84100; 84132; 84439; 84443; 84484; 85014; 85018; 85025; 85610; 85730; 86850; 86900; 86901; 87040; 87205; 87804; 87811; 93005; 94002; 94003; 94640; 96365; 96375; 99285; J1650; J1815; J1940; J2405; J2930; J3475; J3480; J7040; J7050; J7512; J7605; J7613; J7644; P9016

== ENCOUNTER 2023-01-01 00:03 | Inpatient (IN) | payer OTHER ==
--- OUTSIDE RECORDS SUMMARY | 2023-01-01 00:36 | XMS REPORT | Continuity of Care Document ---
:[address] [facility] t Address [address] [place] [address] Care Team Providers Name Role Phone Gab Luna Primary Care Physician LV LIZ Attending Clinician Unavailable LV LIZ Attending Clinician Unavailable MONET PRATT Attending Clinician Unavailable Doctor Unassigned, [place] Attending Clinician Unavailable Alessandra Arrieta RN Attending [...] Attending Clinician Sunshine Pelaez MD Attending Clinician [phone] VALERIANO PANTOJA Attending Clinician Unavailable Valeriano Pantoja MD Attending Clinician JONAS HERNANDEZ Attending Clinician Unavailable Layne Guallpa MD Attending Clinician SHAHLA ANDRADE Attending Clinician Unavailable Janis Valencia MD Attending Clinician [phone] Cory Cee MD Attending Clinician DUKE VELAZQUEZ Attending Clinician Unavailable [facility] Attending Clinician Patria Brewer LVN Attending Clinician ENE GIVENS Attending Clinician Unavailable ENE GIVENS Attending Clinician Unavailable Ene Givens MD Attending Clinician LAYNE GUALLPA Attending Clinician Unavailable APARNA BATES Attending Clinician Unavailable Aparna Bates MD Attending Clinician CAMLIA ORTIZ Attending Clinician Unavailable GAB LUNA Attending [...] Number Effective Date Expiration Date S anatoly [employer] OPEN ACCESS [id number] 2022 MANAGED CHOICE POS 00:00:00 [employer] COMMERCIAL [id number] 2022 OUT OF NETWORK 00:00:00 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 FROM [id number] 2020 [facility] [place] 00[facility] [id number] 2019 00:00:00 Problems Condition Condition Condition Status [...] ve urgency 1-11 it y of 00:00: [place] [facility] Chest pain Chest pain Disease Active U nivers 8- ity of 00:00: [place] [facility] Abdominal Abdominal Disease Active Uni vers pain pain 8- ity of 00:00: [place] [facility] Tracheomal Tracheomal Disease Active U nivers acia acia 7 ity of 00:: [place] [facility] Tracheosto Tracheosto Disease Active U nivers my in my in [address] 00:00: [place] [facility] Dyspnea, Dyspnea, Disease Active Unive rs unspecifie unspecifie 7 it y of d type d type 00:00: [place] [facility] Acute Acute Disease Active [facility] respirator respirator 7 it y of y failure y failure 00:00[place] with 00 [place] hypoxia hypoxia Branch and and hypercapni hypercapni a a Elevated Elevated Disease Active Unive rs brain brain 7 ity of natriureti natriureti [place] c peptide c peptide 00 [facility] (BNP) (BNP) Branch level level Anasarca Anasarca Disease Active Unive rs 7-05 ity of 00:00: [place] [facility] Acute Acute Disease Active 2016-07 [...] [place] y failure y failure 00 [facility] michel Branch Obesity Obesity Disease Active Univers (BMI (BMI 3-17 ity of 30-39.9) 30-39.9) 00:00: [place] [facility] VAP VAP Disease Active Univers (ventilato (ventilato 5-08 it y of r-associat r-associat 00:00: [place] ed ed 00 Medical pneumonia) pneumonia) Br anch Acute Acute Disease Active Univers respirator respirator 5-08 it y of y failure y failure 00:00: [place] with 00 Medical hypercapni hypercapni Br anch a a SOB SOB Disease Active Univers (shortness (shortness 1-10 it y of of breath) of breath) 00:00: [place] 00 [place] Hypoxia Hypoxia Disease Active Univers 9-24 ity of 00:00: [place] [facility] Hypercapni Hypercapni Disease Active U nivers c c 9-01 ity of respirator respirator 00:00: [place] y failure, y failure, 00 Me dical chronic chronic Branch Respirator Respirator Disease Active U nivers y failure y failure 8-16 ity of with with 00:00: [place] hypoxia hypoxia Medical Branch COPD COPD Disease Active Univers exacerbati exacerbati 7-28 it y of on on 00:00: [place] [facility] Respirator Respirator Disease Active U nivers y failure y failure 7-04 ity of with with 00:00: [place] hypoxia hypoxia 00 Medical and and Branch hypercapni hypercapni a a Respirator Respirator Disease Active U nivers y failure y failure 6-09 ity of 00:00: [place] [facility] Hypotensio Hypotensio Disease Active U nivers n n 3-10 ity of 00:00: [place] [facility] COPD COPD Disease Active Univers (chronic (chronic 1-04 ity of obstructiv obstructiv 00:00: [place] e e 00 Medical pulmonary pulmonary Bran ch disease) disease) Allergies, Adverse Reactions, Alerts Allergy Allergy Status Severity Reaction(s) Onset Inactive Treating Comm ents Source Name Type Date Date Clinician Methocar Propensi Active Hives, Rash [facility] adverse [facility] Medical reaction 00 [facility] s Sulfa Propensi Active Other (See Headache [facility] (Sulfona ty to Comments) [facility] mide adverse 00:00: Medical Antibiot reaction 00 Center ics) s METHOCAR Allergy Active High Hives 2023-[address] [facility] 00:00: Medical [...] NE INGREDI 02-16 ity of 00:00: [place] 00 Medical Branch CEFUROXI DRUG Active Unknown-Cmnt Un alexia ME INGREDI 02-16 ity of AXETIL 00:00: [place] [facility] Cefuroxi Propensi Active Unknown - Uni vers me ty to See comments 02-16 ity of Axetil adverse 00:00: [place] reaction 00 Medical s Branch Codeine Propensi Active Unknown - [facility] ers ty to See comments 02-16 [...] Medical s Branch CIPROFLO DRUG Active Other-Cmnt [facility] ers XACIN INGREDI 03-08 ity of [...] INGREDI 02-22 ity of BROMIDE 00:00: [place] 00 Medical Branch Tiotropi Propensi Active Other - See Makes U nivers um ty to comments 02-22 chela ity of [place] adverse 00:00: swell [place] reaction Medical s [...] Quantity Comments Source History SDOH [facility] Transport [facility]Med [facility] History SDOH University o f Alcohol Std Drinks [place] [facility] History SDOH University o f Alcohol Binge [place] [facility] History SDOH Social Unive rsity of Connections [facility] Med ical Together Branch History SDOH Social Unive rsity of Connections [facility] Medical Branch History SDOH Social Unive rsity of Connections [place] [facility] Membership Branch History SDOH Social Unive rsity of Connections [place] [facility] Meetings Branch History of tobacco Passive smoker Un iversity of use [place] [facility] Exposure to 2022-11-30 2022-12-10 Not sure University of SARS-CoV-2 (event) 00:00:00 16:41:00 [place] [facility] History SDOH 2022-12-08 2022-12-08 1 University o f Alcohol Frequency 00:00:00 00:00:00 [place] M edical Branch History SDOH Social 2022-12-08 2022-12-08 5 Unive rsity of Connections Phone 00:00:00 00:00:00 [facility] edical Branch History SDOH Social 2022-12-08 2022-12-08 3 Unive rsity of Connections Living 00:00:00 00:00:00 [place] [facility] History SDOH 2022-12-08 2022-12-08 0 University o f Physical Activity 00:00:00 00:00:00 [facility] edical DPW Branch History SDCA 2022-12-08 2022-12-08 0 University o f Physical Activity 00:00:00 00:00:00 [facility] edical MPS Branch History SDOH 2022-12-08 2022-12-08 5 University o f Financial 00:00:00 00:00:00 [place] [facility] History SDOH Food 2022-12-08 2022-12-08 1 Univers ity of Worry 00:00:00 00:00:00 [place] [facility] History SDOH Food 2022-12-08 2022-12-08 1 Univers ity of Scarcity 00:00:00 00:00:00 [place] [facility] History SDOH 2022-12-08 2022-12-08 2 University o f Housing Unable to 00:00:00 00:00:00 [facility] edical Pay Branch History SDCA 2022-12-08 2022-12-08 1 University o f Housing Places 00:00:00 00:00:00 [place] Medi michel Lived Branch History SDCA 2022-12-08 2022-12-08 2 University o f Housing Homeless 00:00:00 00:00:00 [facility] dical Last Year Branch Cigarettes smoked 2022-12-07 2022-12-07 Univers ity of current (pack per 00:00:00 00:00:00 [facility] edical day) - Reported Branch Cigarette 2022-12-07 2022-12-07 University of pack-years 00:00:00 00:00:00 [facility] Tobacco use and 2022-12-07 2022-12-07 Smokeless Universit y of exposure 00:00:00 00:00:[address] tobacco non-[address] [facility] dical Branch Alcohol intake 2022-11-25 2022-11-25 Ex-drinker [facility] 00:[facility]00 00:00:00 (finding) Medical Center History SDOH 2022-11-25 2022-11-25 2 [facility] Transport Med 00:00:00 00:00:[address] Tobacco Comment 2022-02-12 2022-02-12 Pt trached Universit y of 00:00:00 00:00:00 [facility] Sex Ass[birth year] At [birth year] INNA Almeidas 00:00:00 00:00:00 Medical Center Smoking Status Start Date Stop Date Source Ex-smoker 2022-12-07 00:00:00 2022-12-07 00:00:00 Universi ty of [facility] Smokes tobacco daily 2022-02-12 00:00:00 [facility] ity [facility] Medications Ordered Filled Start Stop Current Ordering Indication Dosage Frequency Signature Comments Components Source Medication Medication Date Date Medication? Clinician (SIG) Name Name insulin Yes [id number] 25U inject 25 Univers glargine 5-19 Units ity of 100 unit/mL 00:00: under the [place] injection 00 skin every Medi michel 24 Branch (twenty-fo ur) hours. polyethylen Yes [id number] 17g Take 1 Univers e glycol 5-19 Packet by ity of 3350 17 00:00: mouth in [place] gram powder 00 the Medical morning. Branch sennosides- Yes [id number] 1{tbl} Take 1 Univers docusate 5-19 tablet by ity of sodium 00:00: mouth in [place] 8.6-50 mg 00 the Medical per tablet morning. Bran h insulin Yes [id number] 25U inject 25 Univers glargine 5-19 Units ity of 100 unit/mL 00:00: under the [place] injection 00 skin every Medi michel 24 Branch (twenty-fo ur) hours. polyethylen Yes [id number] 17g Take 1 Univers e glycol 5-19 Packet by ity of 3350 17 00:00: mouth in [place] gram powder 00 the Medical morning. Branch sennosides- Yes [id number] 1{tbl} Take 1 Univers docusate 5-19 tablet by ity of sodium 00:00: mouth in [place] 8.6-50 mg 00 the Medical per tablet morning. Branc h insulin Yes [id number] 25U inject 25 Univers glargine 5-19 Units ity of 100 unit/mL 00:00: under the [place] injection 00 skin every Medi michel 24 Branch (twenty-fo ur) hours. polyethylen 2022-0 Yes [id number] 17g Take 1 Univers e glycol 5-19 Packet by ity of 3350 17 00:00: mouth in [place] gram powder 00 the Medical morning. [facility]- 2022-0 Yes [id number] 1{tbl} Take 1 Univers docusate 5-19 tablet by ity of sodium 00:00: mouth in [place] 8.6-50 mg 00 the Medical per tablet morning. [facility] insulin 2022-0 Yes [id number] 25U inject 25 Univers glargine 5-19 Units ity of 100 unit/mL 00:00: under the [place] injection 00 skin every Medi michel 24 Branch (twenty-fo ur) hours. polyethylen 2022-0 Yes [id number] 17g Take 1 Univers e glycol 5-19 Packet by ity of 3350 17 00:00: mouth in [place] gram powder 00 the Medical morning. [facility]- 2022-0 Yes [id number] 1{tbl} Take 1 Univers docusate 5-19 tablet by ity of sodium 00:00: mouth in [place] 8.6-50 mg 00 the Medical per tablet morning. [facility] hydrOXYzine 2022-0 Yes [id number] 10mg Take 1 Univers 10 mg 5-19 06 tablet by ity of tablet 00:00: mouth [place] 00 every 8 Medical (eight) Branch hours as needed for Anxiety. insulin 2022-0 Yes [id number] 25U inject 25 Univers glargine 5-19 Units ity of 100 unit/mL 00:00: under the [place] injection 00 skin every Medi michel 24 Branch (twenty-fo ur) hours. polyethylen 2022-0 Yes [id number] 17g Take 1 Univers e glycol 5-19 Packet by ity of 3350 17 00:00: mouth in [place] gram powder 00 the Medical morning. [facility]- 2022-0 Yes [id number] 1{tbl} Take 1 Univers docusate 5-19 tablet by ity of sodium 00:00: mouth in [place] 8.6-50 mg 00 the Medical per tablet morning. Bran h hydrOXYzine 0 Yes [id number] 10mg Take 1 Univers 10 mg 5-19 06 tablet by ity of tablet 00:00: mouth [place] 00 every 8 Medical (eight) Branch hours as needed for Anxiety. HYDROcodone 0 Yes 1{tbl} Take 1 Un alexia -acetaminop 5-18 tablet by ity of hen 10-325 16:11: mouth [place] mg tablet 15 every 8 Medical (eight) Branch hours as needed. cyclobenzap 0 Yes 10mg Take 10 mg Univers rine 5 mg 5-18 by mouth 3 ity of tablet 16:11: (three) [place] 15 times Medical daily. Branch LORazepam Yes .5mg Take 0.5 Univ ers 0.5 mg 5-18 mg by ity of tablet 16:11: mouth 2 [place] 15 (two) Medical times Branch daily as needed. ipratropium Yes 1{ampul 1 Ampule Univers -albuterol 5-18 e} every 4 ity of 0.5 mg-3 16:11: (four) [place] mg(2.5 mg 15 hours as Medica l base)/3 mL needed for [facility] nebulizer Wheezing. solution dulaglutide Yes Trulicity U [...] the [place] 15 morning. Medical Branch Levothyroxi 2022-0 Yes 50ug Take 50 Uni vers ne 100 mcg 5-18 mcg by ity of capsule 16:11: mouth. [place] 15 Medical Branch famotidine 0 Yes 40mg Take 40 mg U nivers 40 mg 5-18 by mouth ity of tablet 16:11: in the [place] 15 morning. Medical Branch magnesium 2022-0 Yes 500mg Take 500 Uni vers gluconate 5-18 mg by ity of (MAG-G 16:11: mouth at [place] ORAL) 15 bedtime. Medical Branch montelukast Yes 10mg Take 10 mg Univers 10 mg 5-18 by mouth. ity of tablet 16:11: [place] 15 Medical Branch HYDROcodone 0 Yes 1{tbl} Take 1 Un alexia -acetaminop 5-18 tablet by ity of hen 10-325 16:11: mouth [place] mg tablet 15 every 8 Medical (eight) Branch hours as needed. cyclobenzap Yes 10mg Take 10 mg Univers rine 5 mg 5-18 by mouth 3 ity of tablet 16:11: (three) [place] 15 times Medical daily. Branch LORazepam Yes .5mg Take 0.5 Univ ers 0.5 mg 5-18 mg by ity of tablet 16:11: mouth 2 [place] 15 (two) Medical times Branch daily as needed. ipratropium Yes 1{ampul 1 Ampule Univers -albuterol 5-18 e} every 4 ity of 0.5 mg-3 16:11: (four) [place] mg(2.5 mg 15 hours as Medica l base)/3 mL needed for [facility] nebulizer Wheezing. solution dulaglutide Yes Trulicity U nivers (TRULICITY) 5-18 3 mg/0.5 ity of 3 mg/0.5 mL 16:11: mL [place] PnIj 15 subcutaneo Medical pen Branch injector metFORMIN 0 Yes 750mg Take 750 Uni vers 500 mg 24 5-18 mg by ity of hr tablet 16:11: mouth [place] 15 daily with Medical breakfast. Branch spironolact Yes 25mg Take 25 mg Univers one 25 mg 5-18 by mouth ity of tablet 16:11: in the [place] 15 morning. Medical Branch Levothyroxi Yes 50ug Take 50 Uni vers ne 100 mcg 5-18 mcg by ity of capsule 16:11: mouth. [place] 15 Medical Branch famotidine 0 Yes 40mg Take 40 mg U nivers 40 mg 5-18 by mouth ity of tablet 16:11: in the [place] 15 morning. Medical Branch magnesium 0 Yes 500mg Take 500 Uni vers gluconate 5-18 mg by ity of (MAG-G 16:11: mouth at [place] ORAL) 15 bedtime. Medical Branch montelukast Yes 10mg Take 10 mg Univers 10 mg 5-18 by mouth. ity of tablet 16:11: [place] 15 Medical Branch HYDROcodone 0 Yes 1{tbl} Take 1 Un alexia -acetaminop 5-18 tablet by ity of hen 10-325 16:11: mouth [place] mg tablet 15 every 8 Medical (eight) Branch hours as needed. cyclobenzap Yes 10mg Take 10 mg Univers rine 5 mg 5-18 by mouth 3 ity of tablet 16:11: (three) [place] 15 times Medical daily. Branch LORazepam Yes .5mg Take 0.5 Univ ers 0.5 mg 5-18 mg by ity of tablet 16:11: mouth 2 [place] 15 (two) Medical times Branch daily as needed. ipratropium Yes 1{ampul 1 Ampule Univers -albuterol 5-18 e} every 4 ity of 0.5 mg-3 16:11: (four) [place] mg(2.5 mg 15 hours as Medica l base)/3 mL needed for [facility] nebulizer Wheezing. solution dulaglutide Yes Trulicity U nivers (TRULICITY) 5-18 3 mg/0.5 ity of 3 mg/0.5 mL 16:11: mL [place] PnIj 15 subcutaneo Medical pen Branch injector metFORMIN 0 Yes 750mg Take 750 Uni vers 500 mg 24 5-18 mg by ity of hr tablet 16:11: mouth [place] 15 daily with Medical breakfast. Branch spironolact Yes 25mg Take 25 mg Univers one 25 mg 5-18 by mouth ity of tablet 16:11: in the [place] 15 morning. Medical Branch Levothyroxi Yes 50ug Take 50 Uni vers ne 100 mcg 5-18 mcg by ity of capsule 16:11: mouth. [place] 15 Medical Branch famotidine 0 Yes 40mg Take 40 mg U nivers 40 mg 5-18 by mouth ity of tablet 16:11: in the [place] 15 morning. Medical Branch magnesium 0 Yes 500mg Take 500 Uni vers gluconate 5-18 mg by ity of (MAG-G 16:11: mouth at [place] ORAL) 15 bedtime. Medical Branch montelukast Yes 10mg Take 10 mg Univers 10 mg 5-18 by mouth. ity of tablet 16:11: [place] 15 Medical Branch HYDROcodone 0 Yes 1{tbl} Take 1 Un alexia -acetaminop 5-18 tablet by ity of hen 10-325 16:11: mouth [place] mg tablet 15 every 8 Medical (eight) Branch hours as needed. cyclobenzap Yes 10mg Take 10 mg Univers rine 5 mg 5-18 by mouth 3 ity of tablet 16:11: (three) [place] 15 times Medical daily. Branch LORazepam Yes .5mg Take 0.5 Univ ers 0.5 mg 5-18 mg by ity of tablet 16:11: mouth 2 [place] 15 (two) Medical times Branch daily as needed. ipratropium Yes 1{ampul 1 Ampule Univers -albuterol 5-18 e} every 4 ity of 0.5 mg-3 16:11: (four) [place] mg(2.5 mg 15 hours as Medica l base)/3 mL needed for [facility] nebulizer Wheezing. solution dulaglutide Yes Trulicity U nivers (TRULICITY) 5-18 3 mg/0.5 ity of 3 mg/0.5 mL 16:11: mL [place] PnIj 15 subcutaneo Medical pen Branch injector metFORMIN 0 Yes 750mg Take 750 Uni vers 500 mg 24 5-18 mg by ity of hr tablet 16:11: mouth [place] 15 daily with Medical breakfast. Branch spironolact 0 Yes 25mg Take 25 mg Univers one 25 mg 5-18 by mouth ity of tablet 16:11: in the [place] 15 morning. Medical Branch Levothyroxi Yes 50ug Take 50 Uni vers ne 100 mcg 5-18 mcg by ity of capsule 16:11: mouth. [place] 15 Medical Branch famotidine 0 Yes 40mg Take 40 mg U nivers 40 mg 5-18 by mouth ity of tablet 16:11: in the [place] 15 morning. Medical Branch magnesium 0 Yes 500mg Take 500 Uni vers gluconate 5-18 mg by ity of (MAG-G 16:11: mouth at [place] ORAL) 15 bedtime. Medical Branch montelukast 0 Yes 10mg Take 10 mg Univers 10 mg 5-18 by mouth. ity of tablet 16:11: [place] 15 Medical Branch HYDROcodone 0 Yes 1{tbl} Take 1 Un alexia -acetaminop 5-18 tablet by ity of hen 10-325 16:11: mouth [place] mg tablet 15 every 8 Medical (eight) Branch hours as needed. cyclobenzap 0 Yes 10mg Take 10 mg Univers rine 5 mg 5-18 by mouth 3 ity of tablet 16:11: (three) [place] 15 times Medical daily. Branch LORazepam Yes .5mg Take 0.5 Univ ers 0.5 mg 5-18 mg by ity of tablet 16:11: mouth 2 [place] 15 (two) Medical times Branch daily as needed. ipratropium Yes 1{ampul 1 Ampule Univers -albuterol 5-18 e} every 4 ity of 0.5 mg-3 16:11: (four) [place] mg(2.5 mg 15 hours as Medica l base)/3 mL needed for [facility] nebulizer Wheezing. solution dulaglutide Yes Trulicity U [...] mcg by ity of capsule 16:11: mouth. [place] 15 Medical Branch famotidine 0 Yes 40mg Take 40 mg U nivers 40 mg 5-18 by mouth ity of tablet 16:11: in the [place] 15 morning. Medical Branch magnesium 0 Yes 500mg Take 500 Uni vers gluconate 5-18 mg by ity of (MAG-G 16:11: mouth at [place] ORAL) 15 bedtime. Medical Branch montelukast Yes 10mg Take 10 mg Univers 10 mg 5-18 by mouth. ity of tablet 16:11: [place] 15 Medical Branch barium 2022- No [id number] 30g 30 g, Univ ers sulfate 12-1018 Oral, ity of (VARIBAR 14:30: 14:15 ONCE, 1 [place] THIN 00 :00 dose, On Medical LIQUID) 81 [place] Branch % (w/w) 12/10/22 at oral powder 0930, 30 g Routine dexMEDEtomi Yes .2ug/kg 0.2-1.5 Univers dine 200 5-18 [...] dose, contact prescriber .
barium 2022- No [id number] 30mL 30 mL, Uni vers sulfate-NO 12-10 Oral, ity of CHARGE- 14:15: 14:15 ONCE, 1 [place] (VARIBAR 00 :00 dose, On Medical NECTOR) 40 [place] Branch % (w/v) 12/10/22 at oral 0915, suspension Routine 30 mL insulin Yes 25U 25 Units, Unive rs glargine 5-18 Subcutaneo ity o f (LANTUS 14:00: us, Q24H, [place] U-100) 00 First dose [...] Anayeli 12/10/22 at 0800, Last dose on Wed12/10/22 at 1000, 100 mL insulin 2022-0 2022- No Novolog Univer s aspart 12-10 FlexPen ity of U-100 12:49: 00:00 U-100 [place] (NOVOLOG 18 :00 Insulin Medical FLEXPEN aspart 100 Branch U-100 unit/mL (3 INSULIN) mL) 100 unit/mL subcutaneo (3 mL) us injection pregabalin 2022-0 Yes [id number] 100mg Take 1 Univers 100 mg 5-18 capsule by ity of capsule 00:00: mouth in [place] 00 the Medical morning Branch and 1 capsule in the evening. simethicone 202-0 Yes [id number] 80mg Take 1 Univers 80 mg 5-18 tablet by ity of chewable 00:00: mouth [place] tablet 00 after Medical meals and Branch at bedtime. pregabalin 2022-0 Yes [id number] 100mg Take 1 Univers 100 mg 5-18 capsule by ity of capsule 00:00: mouth in [place] 00 the Medical morning Branch and 1 capsule in the evening. simethicone 3-0 Yes [id number] 80mg Take 1 Univers 80 mg 5-18 tablet by ity of chewable 00:00: mouth [place] tablet 00 after Medical meals and Branch at bedtime. pregabalin 2023-0 Yes [id number] 100mg Take 1 Univers 100 mg 5-18 capsule by ity of capsule 00:00: mouth in [place] 00 the Medical morning Branch and 1 capsule in the evening. simethicone 2023-0 Yes [id number] 80mg Take 1 Univers 80 mg 5-18 tablet by ity of chewable 00:00: mouth [place] tablet 00 after Medical meals and Branch at bedtime. pregabalin 2023-0 Yes [id number] 100mg Take 1 Univers 100 mg 5-18 capsule by ity of capsule 00:00: mouth in [place] 00 the Medical morning Branch and 1 capsule in the evening. simethicone 2023-0 Yes [id number] 80mg Take 1 Univers 80 mg 5-18 tablet by ity of chewable 00:00: mouth [place] tablet 00 after Medical meals and Branch at bedtime. pregabalin 3-0 Yes [id number] 100mg Take 1 Univers 100 mg 5-18 capsule by ity of capsule 00:00: mouth in [place] 00 the Medical morning Branch and 1 capsule in the evening. simethicone 2022-0 Yes [id number] 80mg Take 1 Univers 80 mg 5-18 tablet by ity of chewable 00:00: mouth [place] tablet 00 after Medical meals and Branch at bedtime. simethicone 2022-0 Yes 80mg 80 mg, Univ ers (GAS RELIEF 5-17 Oral, ity of (SIMETHICON 18:00: PC+HS, [place] E)) 00 First dose Medical chewable on Wed Branch tablet 80 12/09/22 at mg 1300, Until Discontinu ed, Routine ondansetron Yes 4mg 4 mg, Slow Univers (ZOFRAN 5-17 IV Push, ity of (PF)) 17:43: Q6HPRN, [place] injection 4 52 Nausea and Me dical mg Vomiting Branch (N/V), Starting on Wed12/09/22 at 1243
Do ses of ondansetro n 16 mg and above need to be administer ed via IV piggyback. For Dose >=24mg ECG monitoring is advisable.
famotidine Yes 40mg 40 mg, Unive rs (PEPCID) 17 Oral, ity of tablet 40 14:00: DAILY, [place] mg 00 First dose Medical (after Branch last modificati on) on Wed12/09/22 at 0900, Until Discontinu ed, Routine insulin 2022- No 50U 50 Units, Univ ers glargine 12-0918 Subcutaneo ity of (LANTUS 14:00: 13:36 us, Q24H, [place] U-100) 00 :24 First dose Medical injection (after Branch 50 Units last modificati on) on Wed12/09/22 at 0900, Until Discontinu ed, Routine potassium 2022- No 40meq 40 mEq, IV Univers chloride in 12-09 Infusion, it y of water (KCL) 11:00: 13:25 Q2H ES, 1 [place] 20 mEq/100 00 :00 dose, Medical mL RTU IVPB First dose Br anch 40 mEq on Wed12/09/22 at 0600, 200 mL ondansetron 2022- No 4mg 4 mg, Slow Univers (ZOFRAN 12-09 IV Push, ity of (PF)) 08:00: 07:32 ONCE, On injection 4 00 :00 Wed Medical mg 12/09/22 at Branch 0300, For 1 dose
Do ses of ondansetro n 16 mg and above need to be administer ed via IV piggyback. For Dose >=24mg ECG monitoring is advisable.
glycerin/mi 2022- No 225mL 225 mL, U nivers neral oil 12-09 Rectal, ity of (AGLO 05:00: 05:22 ONCE, 1 [place] ENEMA) 00 :00 dose, On Medical (COMPOUNDED Wed ) Enem 225 12/09/22 at mL 0000, Routine PARoxetine 2022-0 Yes 40mg 40 mg, Unive rs (PAXIL) 5-17 Oral, QHS, ity of tablet 40 04:00: First dose [place] mg 00 (after Medical last Branch modificati on) on Wed12/08/22 at 2300, Until Discontinu ed, Routine QUEtiapine 2022-0 Yes 50mg 50 mg, Unive rs (SEROQUEL) -17 Oral, QHS, ity of tablet 50 04:00: First dose [place] mg 00 on Wed [facility] 12/08/22 at Branch 2300, Until Discontinu ed, Routine LORazepam 2022- No 1mg 1 mg, Slow U nivers (ATIVAN) 12-09 IV Push, ity of injection 1 00:45: 00:09 ONCE, 1 [place] mg 00 :00 dose, On Medical [facility] Branch 12/08/22 at 1945, Routine ondansetron 0 2022- No 4mg 4 mg, Slow Univers (ZOFRAN 12-08 IV Push, ity of (PF)) 22:00: 22:08 ONCE, On [place] injection 4 00 :00 Medical mg 12/08/22 at Branch 1700, For 1 dose
Do ses of ondansetro n 16 mg and above need to be administer ed via IV piggyback. For Dose >=24mg ECG monitoring is advisable.
glycerin/mi 2022-0 2022- No 225mL 225 mL, U nivers neral oil 16 05-16 Rectal, ity of (AGLO 18:00: 19:21 ONCE, 1 [place] ENEMA) 00 :00 dose, On Medical (COMPOUNDED [facility] ) Enem 225 12/08/22 at mL 1300, Routine polyethylen 0 Yes 17g 17 g, Unive rs e glycol -16 Oral, ity of 3350 powder 16:15: DAILY, [place] 17 g 00 First dose Medical on [facility] 12/08/22 at 1115, Until Discontinu ed, Routine sennosides- 0 Yes 1{tbl} 1 tablet, Univers docusate -16 Oral, ity of sodium 16:15: DAILY, [place] (SENOKOT-S) 00 First dose Me dical 8.6-50 mg on Wed per tablet 12/08/22 at 1 tablet 1115, Until Discontinu ed, Routine morpHINE (4 Yes 4mg 4 mg, Slow Univers mg/mL) 5-16 IV Push, ity of injection 4 15:04: Q4HPRN, Compa as mg 13 Starting Medical on [facility] 12/08/22 at 1004, Until Discontinu ed, Routine, Pain (scale 7-10) nicotine 0 Yes 1{patch 1 Patch, Un alexia (NICODERM) 5-16 } Topical, ity o f 7 mg/24 hr 14:00: Administer [place] patch 1 00 over 24 Medical Patch Hours, Branch Q24H, First dose on Wed12/08/22 at 0900, Until Discontinu ed, Routine spironolact 2022-0 Yes 25mg 25 mg, Univ ers one 5-16 Oral, ity of (ALDACTONE) 14:00: DAILY, [place] tablet 25 00 First dose Medi michel mg on [facility] 12/08/22 at 0900, Until Discontinu ed, Routine furosemide Yes 40mg 40 mg, Unive rs (LASIX) 5-16 Oral, ity of tablet 40 14:00: DAILY, [place] mg 00 First dose Medical on [facility] 12/08/22 at 0900, Until Discontinu ed, Routine pregabalin Yes 100mg 100 mg, Uni vers (LYRICA) 5-16 Oral, BID, ity o f capsule 100 13:00: First dose [place] mg 00 on [facility] 12/08/22 at Branch 0800, Until Discontinu ed, Routine aspirin Yes 81mg 81 mg, Univers chewable 5-16 Oral, QAM ity of tablet 81 13:00: WITH [place] mg 00 BREAKFAST, Medical First dose Branch on 12/08/22 at 0800, Until Discontinu ed, Routine famotidine 2022- No 20mg 20 mg, Univ ers (PEPCID 12-0817 Slow IV ity of (PF)) 13:00: 12:59 Push, [place] injection 00 :00 Q12H, 2 Medical 20 mg doses, Branch First dose on Wed12/08/22 at 0800, Last dose on 12/08/22 at 2000, Routine levothyroxi Yes 50ug 50 mcg, Uni vers ne 5-16 Oral, ity of (SYNTHROID) 11:00: QAM-0600, [place] tablet 50 00 First dose Medi michel mcg on [facility] 12/08/22 at 0600, Until Discontinu ed ondansetron 2022- No 4mg 4 mg, Slow [facility] (ZOFRAN 12-08 IV Push, ity of (PF)) 03:30: 02:49 ONCE, On [place] injection 4 00 :00 Mon Medical mg 12/07/22 at Branch 2230, For 1 dose
Do ses of ondansetro n 16 mg and above need to be administer ed via IV piggyback. For Dose >=24mg ECG monitoring is advisable.
rosuvastati 0 Yes 10mg 10 mg, Univ ers n (CRESTOR) 5-16 Oral, QHS, it y of tablet 10 02:00: First dose [place] mg 00 on [facility] Medical 12/07/22 at Branch 2100, Until Discontinu ed, Routine LORazepam Yes .5mg 0.5 mg, Unive rs (ATIVAN) 5-16 Slow IV ity of injection 01:49: Push, [place] 0.5 mg 12 BIDPRN, Medical Starting Branch on Wed12/07/22 at 2049, Until Discontinu ed, Routine, Anxiety dexMEDEtomi 202- No .2ug/kg 0.2-1.5 Univers dine 400 5-16 05-18 /h mcg/kg/hr ity o f mcg [...] last Branch modificati on) on Wed12/07/22 at 2000, Until Discontinu ed, Routine cyclobenzap Yes 10mg 10 mg, Univ ers rine 5-16 Oral, TID, ity of (FLEXERIL) 01:00: First dose [place] tablet 10 00 (after Medical mg last Branch reorder) on Wed12/07/22 at 1999, Until Discontinu ed, Routine heparin Yes 5000U 5,000 Univers (porcine) 5-16 Units, ity of injection 01:00: Subcutaneo [place] 5,000 Units 00 us, Q12H, Med ical First dose Branch on Wed12/07/22 at 2000, Until Discontinu ed, Routine acetylcyste 2022- No 1mL 200 mg (1 Univers ine 12-07 05-17 mL), ity of (MUCOMYST) 23:00: 21:57 Inhalation [place] 200 mg/mL 00 :48 , Q6H, 12 Medic al (20 %) doses, Branch inhalation First dose solution on [facility] 200 mg 12/07/22 at 1800, Last dose on An[place] 12/10/22 at 1200, Routine insulin 2022- No 50U 50 Units, Univ ers glargine 12-07 05-16 Subcutaneo ity of (LANTUS 23:00: 13:56 us, Q24H, [place] U-100) 00 :47 First dose Medical injection on [facility] 50 Units 12/07/22 at 1800, Until Discontinu ed, Routine Sliding 2022- No Subcutaneo Uni vers Scale 12-07 05-15 us, TID ity of Insulin - 22:00: 22:05 MEALS+HS, [place] Lispro 00 :29 First dose Medical (HumaLOG) on [facility] 12/07/22 at 1700, Until Discontinu ed, Routine dextrose Yes 250mL 250 mL, IV Un alexia 10% (D10W) -15 Infusion, ity of bolus 20:33: PRN - SEE [place] infusion 27 INSTRUCTIO Medic al 250 mL NS, Branch Administer over 60 Minutes, Other, If blood glucose is < or = 70 mg/dL and patient is unable to swallow or has mental status changes, Starting on [facility] 12/07/22 at 1533
If blood glucose is < [...] glucose is < 80 mg/dL, repeat.
glucagon Yes 1mg 1 mg, Univers (GLUCAGEN 5-15 Intramuscu ity of DIAGNOSTIC 20:33: lar, PRN, [place] KIT) 24 Starting Medical injection 1 on Wed Branch mg 12/07/22 at 1533, Until Discontinu ed, CT, Blood Glucose < or = 70 mg/dL and patient is NPO, unable to swallow or has mental changes. HYDROcodone 2022-0 Yes 1{tbl} 1 tablet, Univers -acetaminop 5-15 Oral, ity of hen (NORCO) 19:17: Q8HPRN, [place]a [place] 10-325 mg 24 Starting Medica l tablet 1 on Wed Branch tablet 12/07/22 at 1417, Until Discontinu ed, Routine, Pain (scale 4-6) hydrOXYzine 2022-0 Yes 10mg 10 mg, Univ ers (ATARAX) 5-15 Oral, ity of tablet 10 19:17: Q8HPRN, [place] mg 19 Starting Medical on Wed Branch 12/07/22 at 1417, Until Discontinu ed, Routine, Anxiety levalbutero 0 Yes 1.25mg 1.25 mg, Univers l (XOPENEX) 5-15 Inhalation it y of nebulizer 19:00: , TID, [place] solution 00 First dose Medic al 1.25 mg on Wed Branch 12/07/22 at 1400, Until Discontinu ed ipratropium 2022- No .5mg 0.5 mg, Un alexia (ATROVENT) 12-07 05-15 Inhalation it y of 0.02 % 19:00: 21:40 , TID, [employer] nebulizer 00 :40 First dose Medi michel solution on Wed Branch 0.5 mg 12/07/22 at 1400, Until Discontinu ed dexMEDEtomi 2022- No .2ug/kg 0.2-1.5 Univers dine 200 15 05-16 /h mcg/kg/hr ity o f mcg [...] Yes 50ug Take [address] [facility] 11-27- tablet (50 [facility] (SYNTHROID, 00:00: 23:59 mcg total) Medical LEVOTHROID) 00 :00 by mouth Cent er 50 MCG Every tablet morning on an empty stomach for 30 days. levothyroxi 2022- Yes 50ug Take [address] [facility] ne 11-27 tablet (50 [facility] (SYNTHROID, 00:00: 23:59 mcg total) Medical LEVOTHROID) 00 :00 by mouth Cent er 50 MCG Every tablet morning on an empty stomach for 30 days. levothyroxi 2022- No 50ug Take [address] [facility] ne 11-27- tablet (50 [facility] (SYNTHROID, 00:00: 00:00 mcg total) Medical LEVOTHROID) 00 :00 by mouth Cent er 50 MCG Every tablet morning on an empty stomach for 30 days. levothyroxi 2022- No 50ug Take [address] [facility] ne 11-27 tablet (50 [facility] (SYNTHROID, 00:00: 00:00 mcg total) Medical LEVOTHROID) 00 :00 by mouth Cent er 50 MCG Every tablet morning on an empty stomach for 30 days. furosemide 2022- Yes 20mg QD Take [address] [facility] (LASIX) 20 11-26 tablet (20 Yvonne kes MG tablet 00:00: 23:59 mg total) Me dical 00 :00 by mouth Center in the morning for 30 days. PARoxetine 2022- Yes 10mg QD Take [address] [facility] (PAXIL) 10 11-26 tablet (10 Yvonne kes MG tablet 00:00: 23:59 mg total) Me dical 00 :00 by mouth Center in the morning for 30 days. rosuvastati 2022- Yes 10mg QD Take [address] [facility] n (CRESTOR) 11-26 tablet (10 L ukes 10 MG 00:00: 23:59 mg total) Medica l tablet 00 :00 by mouth Center in the morning for 30 days. spironolact 2022- Yes 25mg QD Take [address] [facility] one 11-26 tablet (25 [facility] (ALDACTONE) 00:00: 23:59 mg total) Medical 25 MG 00 :00 by mouth Center tablet in the morning for 30 days. tamsulosin 2022- Yes .4mg QD Take [address] [facility] (FLOMAX) 11-26 capsule [facility] 0.4 mg Cap 00:00: 23:59 (0.4 mg Med ical 24 hr 00 :00 total) by Center capsule mouth in the morning for 30 days. pregabalin 2022- Yes 300mg Q.5D Take [address] [facility] (LYRICA) 11-26 capsule [facility] 300 MG 00:00: 23:59 (300 mg Medical capsule 00 :00 total) by Center mouth in the morning and 1 capsule (300 mg total) before bedtime. Do all this for 30 days. Max Daily Amount: 600 mg. QUEtiapine 2022- Yes 50mg QD Take [address] [facility] (SEROquel) 11-26 tablet (50 Yvonne kes 50 MG 00:00: 23:59 mg total) Medica l tablet 00 :00 by mouth Center nightly for 30 days. amLODIPine 2022- Yes 5mg QD Take [address] [facility] (NORVASC) 5 11-26- tablet (5 Yvonne kes MG tablet 00:00: [...] morning for 30 days. spironolact 2022-0 2022- Yes 25mg QD Take [address] [facility] one 11-26-03 tablet (25 [facility] (ALDACTONE) 00:00: 23:59 mg total) Medical 25 MG 00 :00 by mouth Center tablet in the morning for 30 days. tamsulosin 2022-2022- Yes .4mg QD Take [address] [facility] (FLOMAX) 11-26- capsule [facility] 0.4 mg Cap 00:00: 23:59 (0.4 mg Med ical 24 hr 00 :00 total) by Center capsule mouth in the morning for 30 days. pregabalin 2022-2022- Yes 300mg Q.5D Take [address] [facility] [...] Take 1 Univ ers 5 mg tablet 11-26- tablet by it y of 00:00: 00:00 mouth. [place] 00 :00 Medical Branch tamsulosin 2022-0 2022- No .4mg Take 1 Univ ers 0.4 mg 24 11-26-18 capsule by ity of hr capsule 00:00: 00:00 mouth. [place] 00 :00 Medical Branch tamsulosin 2022- No .4mg QD Take 1 [...] QD Take [address] [facility] (LASIX) 20 11-26-04 tablet (20 Yvonne kes MG tablet 00:00: [...] one 11-26- tablet (25 [facility] (ALDACTONE) 00:00: 00:00 mg total) Medical 25 MG 00 :00 by mouth Center tablet in the morning for 30 days. PARoxetine No 10mg QD Take [address] [facility] (PAXIL) 10 11-26 tablet (10 Yvonne kes MG tablet 00:00: 00:00 mg total) Me dical 00 :00 by mouth Center in the morning for 30 days. predniSONE No [id number] 50mg Take 5 Univers 10 mg 09-10- tablets by ity of tablet 00:00: 05:59 mouth in [place] 00 :00 the [facility] Branch for 4 days. methylpredn No 125mg 125 mg, U nivers isolone sod 09-09 Slow IV ity of succ 14:00: 13:20 Push, ONCE [place] (SOLU-MEDRO 00 :00 NOW, 1 Medica l L) dose, On Branch injection Wed 125 mg 09/09/22 at 0800, CT albuterol No 5mg 5 mg, Univer s (PROVENTIL) 09-09 Inhalation i ty of 2.5 mg /3 14:00: 13:13 , ONCE, 1 [place] mL (0.083 00 :00 dose, On Medica l %) Wed Branch nebulizer 09/09/22 at solution 5 0800, CT mg predniSONE 2022-0 2022- No [id number] Take 3 Univers 10 mg -08-21 06 tablets by ity of tablet 00:00: 05:59 mouth [place] 00 :00 daily for Medical 3 days, Branch THEN 2 tablets daily for 3 days, THEN 1 tablet daily for 3 days. predniSONE 2022-0 2022- No [id number] Take 3 Univers 10 mg -08-21 06 tablets by ity of tablet 00:00: 05:59 mouth [place] 00 :00 daily for Medical 3 days, Branch THEN 2 tablets daily for 3 days, THEN 1 tablet daily for 3 days. montelukast 2022-0 Yes 10mg Take 10 mg [...] Medica l base)/3 mL needed for [facility] nebulizer Wheezing. solution dulaglutide 2022-0 Yes Trulicity [...] mouth ity of tablet 17:04: in the [place] [address] morning. Medical Branch Levothyroxi 2022-0 Yes 50ug Take 50 Uni vers ne 100 mcg 1-16 mcg by ity of capsule 17:04: mouth. [place] [address] Medical Branch famotidine 2022-0 Yes 40mg Take 40 mg U nivers 40 mg 1-16 by mouth ity of tablet 17:04: in the [place] [address] morning. Medical Branch magnesium 2022-0 Yes 500mg Take 500 Uni vers gluconate 1-16 mg by ity of (MAG-G 17:04: mouth at [place] ORAL) 37 bedtime. Medical Branch montelukast 2022-0 Yes 10mg Take 10 mg Univers 10 mg 1-16 by mouth. ity of tablet 17:04: [place] [address] Medical Branch HYDROcodone 2022-0 Yes 1{tbl} Take [...] Medica l base)/3 mL needed for [facility] nebulizer Wheezing. solution dulaglutide 2022-0 Yes Trulicity U nivers (TRULICITY) 1-16 3 mg/0.5 ity of 3 mg/0.5 mL 17:04: mL [place] PnIj 37 subcutaneo Medical pen Branch injector metFORMIN 2022-0 Yes 750mg Take 750 Uni vers 500 mg 24 1-16 mg by ity of hr tablet 17:04: mouth [place] 37 daily with Medical breakfast. Branch spironolact 2022-0 Yes 25mg Take 25 mg Univers one 25 mg 1-16 by mouth ity of tablet 17:04: in the [place] [address] morning. Medical Branch Levothyroxi 2022-0 Yes 50ug Take 50 Uni vers ne 100 mcg 1-16 mcg by ity of capsule 17:04: mouth. [place] [address] Medical Branch famotidine 2022-0 Yes 40mg Take 40 mg U nivers 40 mg 1-16 by mouth ity of tablet 17:04: in the [place] [address] morning. Medical Branch magnesium 2022-0 Yes 500mg Take 500 Uni vers gluconate 1-16 mg by ity of (MAG-G 17:04: mouth at [place] ORAL) 37 bedtime. Medical Branch montelukast 2022-0 Yes 10mg Take 10 mg Univers 10 mg 1-16 by mouth. ity of tablet 17:04: [place] [address] Medical Branch HYDROcodone 2022-0 Yes 1{tbl} Take [...] Medica l base)/3 mL needed for [facility] nebulizer Wheezing. solution dulaglutide 2022-0 Yes Trulicity U nivers (TRULICITY) 1-16 3 mg/0.5 ity of 3 mg/0.5 mL 17:04: mL [place] PnIj 37 subcutaneo Medical us pen Branch injector metFORMIN 2022-0 Yes 750mg Take 750 Uni vers 500 mg 24 1-16 mg by ity of hr tablet 17:04: mouth [place] 37 daily with Medical breakfast. Branch spironolact 2022-0 Yes 25mg Take 25 mg Univers one 25 mg 1-16 by mouth ity of tablet 17:04: in the [place] [address] morning. Medical Branch Levothyroxi 2022-0 Yes 50ug Take 50 Uni vers ne 100 mcg 1-16 mcg by ity of capsule 17:04: mouth. [place] [address] Medical Branch famotidine 2022-0 Yes 40mg Take 40 mg U nivers 40 mg 1-16 by mouth ity of tablet 17:04: in the [place] [address] morning. Medical Branch magnesium 2022-0 Yes 500mg Take 500 Uni vers gluconate 1-16 mg by ity of (MAG-G 17:04: mouth at [facility]) 37 bedtime. Medical Branch ondansetron 2022-0 2023- No 8mg Take 8 mg Univers 8 mg -16 -16 by mouth ity of disintegrat 15:21: 00:00 every 8 [place] ing tablet 55 :00 (eight) Medica l hours as Branch needed for Nausea and Vomiting (N/V). ondansetron 2022-0 2022- No 8mg Take 8 mg Univers (ZOFRAN) 8 -16 08-10 by mouth ity of mg tablet 15:21: [...] ed, Routine, Nausea and Vomiting (N/V) hydrOXYzine 3-0 Yes [id number] 10mg Take 1 Univers 10 mg -16 06 tablet by ity of tablet 00:00: mouth [place] 00 every 8 Medical (eight) Branch hours as needed for Anxiety. pregabalin 2022-0 Yes [id number] 300mg Take 1 [facility] 300 mg -16 06 capsule by ity of capsule 00:00: mouth in [place] 00 the Medical morning Branch and 1 capsule in the evening. hydrOXYzine 2023-0 Yes [id number] 10mg Take 1 Univers 10 mg 1-16 06 tablet by ity of tablet 00:00: mouth [place] 00 every 8 Medical (eight) Branch hours as needed for Anxiety. pregabalin 2023-0 Yes [id number] 300mg Take 1 Univers 300 mg 1-16 06 capsule by ity of capsule 00:00: mouth in [place] 00 the Medical morning Branch and 1 capsule in the evening. hydrOXYzine 2023-0 Yes [id number] 10mg Take 1 Univers 10 mg 1-16 06 tablet by ity of tablet 00:00: mouth [place] 00 every 8 Medical (eight) Branch hours as needed for Anxiety. pregabalin 2023-0 Yes [id number] 300mg Take 1 [facility] 300 mg 1-16 06 capsule by ity of capsule 00:00: mouth in [place] 00 the Medical morning Branch and 1 capsule in the evening. hydrOXYzine 2023-0 Yes [id number] 10mg Take 1 [facility] 10 mg 1-16 06 tablet by ity of tablet 00:00: mouth [place] 00 every 8 Medical (eight) Branch hours as needed for Anxiety. hydrOXYzine 2023-0 Yes [id number] 10mg Take 1 [facility] 10 mg 1-16 06 tablet by ity of tablet 00:00: mouth [place] 00 every 8 Medical (eight) Branch hours as needed for Anxiety. hydrOXYzine 2023-0 Yes [id number] 10mg Take 1 Univers 10 mg 1-16 06 tablet by ity of tablet 00:00: mouth [place] 00 every 8 Medical (eight) Branch hours as needed for Anxiety. hydrOXYzine 2023-0 2023- No [id number] 10mg Take 1 Univers 10 mg 1-16 05-19 06 tablet by ity of tablet 00:00: 00:00 mouth [place] 00 :00 every 8 Medical (eight) Branch hours as needed for Anxiety. pregabalin 2023-0 2023- No [id number] 300mg Take 1 Univers 300 mg 1-16 05-18 06 capsule by ity of capsule 00:00: [...] Until Discontinu ed, Routine sulfur 2022- No [id number] 5mL 5 mL, Unive rs hexafluorid 08-07 Intravenou i ty of e microsphr 17:00: 17:00 s, ONCE, 1 [place] (LUMASON) 00 :00 dose, On Medica l injection 5 Fri Branch mL 08/07/22 at 1100, Routine
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 : STELLA IVORY pantoprazol [...] Until Discontinu ed, CT iopamidol 2022- No [id number] 90mL 90 mL, Univers (ISOVUE 08-06 Intravenou ity o f 370-500 mL) 16:45: 17:00 s, ONCE, 1 [place] injection 00 :00 dose, On Medica l 90 mL [place] Branch 08/06/22 at 1100, Routine insulin 2022-0 Yes 25U 25 Units, Unive rs glargine [...] 08-06 Oral, ity of (TYLENOL) 04:40: BIDPRN, [place] tablet 20 Starting Medical 1,000 mg on [facility] Branch 08/05/22 at 2240, Until Discontinu ed, Routine, Pain (scale 1-3) ceFEPIme 2022- No 1000mg 1,000 mg, U nivers (MAXIPIME) 08-05 IV ity of 1,000 mg in 22:00: 21:59 [place], [place] NaCl 0.9% 00 :00 Q8H ABX, Medica [...] Wed Branch 08/05/22 at 0215, Routine cyclobenzap 0 Yes 10mg 10 mg, [...] at 0145, Until Discontinu ed, Routine aspirin 0 2022- No 81mg 81 mg, Univers chewable [...] Yes 3mL 3 mL, Unive rs -albuteroL 1-11 Inhalation ity of (DUONEB) 07:30: , Q4H, [place] 0.5 mg-3 00 First dose Medic al mg(2.5 mg on Wed Branch base)/3 mL 08/05/22 at nebulizer 0130, solution 3 Until mL Discontinu ed, Routine methylPREDN 2022- No 40mg 40 mg, Uni vers ISolone sod 11 01-12 Intravenou i ty of succ 07:30: 15:21 s, Q8H, [place] (SOLU-MEDRO 00 :13 First dose Me dical [...] IV ity of (D50W) 07:27: Push, PRN, [place] injection 58 Starting Medica l 25 mL on Wed Branch 08/05/22 at 0127, Until Discontinu ed, CT, Blood Glucose < or = 70 mg/dL and patient is unable to swallow or has mental status changes. methylpredn 2021-07 Yes 125mg 125 mg, Un alexia isolone sod 08-05 Intravenou it y of succ 06:00: s, Q6H, [place] (SOLU-MEDRO 00 First dose Me dical L) on Wed Branch injection 06/05/22 125 mg at 0000, Until Discontinu ed, Routine iopamidol 2021-07- No [id number] 75mL 75 mL, Univers (ISOVUE 019 05-13 [...] 04/28/22 at 2315, STAT amoxicillin 2021-07 Yes [id number] 500mg Take 1 Univers -pot 0-05 tablet by ity of clavulanate 00:00: mouth [place] 500 mg 00 every 12 Medical 500-125 mg (twelve) Branc h tablet hours. amoxicillin 2021-07 Yes [id number] 500mg Take 1 Univers -pot 0-05 tablet by ity of clavulanate 00:00: mouth [place] 500 mg 00 every 12 Medical 500-125 mg (twelve) Branc h tablet hours. amoxicillin 2021-07 Yes [id number] 500mg Take 1 Univers -pot 0-05 tablet by ity of clavulanate 00:00: mouth [place] 500 mg 00 every 12 Medical 500-125 mg (twelve) Branc h tablet hours. amoxicillin 2021-07 Yes [id number] 500mg Take 1 Univers -pot 0-05 tablet by ity of clavulanate 00:00: mouth [place] 500 mg 00 every 12 Medical 500-125 mg (twelve) Branc h tablet hours. amoxicillin 2021-07- No [id number] 500mg Take 1 Univers -pot 0-05 01-16 [...] Medica l base)/3 mL needed for [facility] nebulizer Wheezing. solution dulaglutide Yes Trulicity U [...] Medica l base)/3 mL needed for [facility] nebulizer Wheezing. solution dulaglutide 0 Yes Trulicity [...] Medica l base)/3 mL needed for [facility] nebulizer Wheezing. solution dulaglutide Yes Trulicity U [...] mcg by ity of capsule 17:58: mouth. [place] [address] Medical Branch HYDROcodone 0 Yes 1{tbl} Take [...] Medica l base)/3 mL needed for [facility] nebulizer Wheezing. solution dulaglutide Yes Trulicity U [...] mcg by ity of capsule 17:58: mouth. [place] [address] Medical Branch HYDROcodone 2022-0 Yes 1{tbl} Take [...] Medica l base)/3 mL needed for [facility] nebulizer Wheezing. solution dulaglutide Yes Trulicity U [...] Medica l base)/3 mL needed for [facility] nebulizer Wheezing. solution dulaglutide Yes Trulicity U [...] mcg by ity of capsule 17:58: mouth. [place] 14 Medical Branch semaglutide 0 2021- No inject Uni vers (OZEMPIC) 8-05 08-05 under the ity of 0.25 mg or 15:36: 00:00 skin. [place] 0.5 mg(2 41 :00 Medical mg/1.5 mL) Branch PnIj famotidine 0 2021- No 40mg Take 40 mg Univers 40 mg 8-05 08-05 by mouth ity of tablet 15:36: 00:00 in the [place] 41 :00 morning. Medical Branch melatonin 2022-0 Yes 6mg 6 mg, Univers (MELATIN) 02-26 [...] On Branch Wed02/24/22 at 0445, Routine NORepinephr No .05ug/k 0.05-0.5 Univers ine 4 mg in 02-24 g/min mcg/kg/min ity of 0.9% NaCl 04:27: 04:26 ?93 kg [place] 250 mL 54 :54 (17.4375-1 Medical infusion 74.375 [place] RTU mL/hr, rounded to 17.44-174. 38 mL/hr), [...] al s, ONCE, 1 Branch dose, On 02/23/22 at 2215, Routine sennosides Yes 8.6mg 8.6 mg, Uni vers (SENOKOT) 02-23 Oral, ity of tablet 8.6 22:45: DAILY, [place] mg 00 First dose Medical on Mon Branch 02/23/22 at 1745, Until Discontinu ed, Routine simethicone Yes 80mg 80 mg, Univ ers (GAS RELIEF 02-23 Oral, ity of (SIMETHICON 14:00: PC+HS, [place] E)) 00 First dose Medical chewable on [facility] tablet 80 02/23/22 at mg 0900, Until Discontinu ed, Routine metoprolol 2021- No 25mg 25 mg, Univ ers succinate 02-23 Oral, BID, ity of XL (TOPROL 13:00: 03:28 First dose [place] XL) tablet 00 :19 on [facility] Medical 25 mg 02/23/22 at Branch 0800, Until Discontinu ed, Routine melatonin 2021- No 6mg 6 mg, Univer s (MELATIN) 02-23 Oral, ONCE ity of tablet 6 mg 08:15: 07:18 NOW, 1 Compa as 00 :00 dose, On Medical [facility] 02/23/22 Branch at 0315, Routine hydrOXYzine 2021- No 10mg 10 mg, Uni vers (ATARAX) 02-23 Oral, ity of tablet 10 01:58: 03:43 Q8HPRN, [place] mg 32 :01 Starting Medical on [place] Branch 02/22/22 at 2058, Until [facility] 02/23/22 at 2243, Routine, [...] Dose >=24mg ECG monitoring is advisable.
LORazepam No .5mg 0.5 mg, Univ ers (ATIVAN) [...] (after Medical last Branch modificati on) on 02/22/22 at 1430, Until Discontinu ed, Routine trimethoben Yes 200mg 200 mg, Un alexia zamide 02-22 Intramuscu ity of (TIGAN) 17:45: lar, [place] injection 43 Q6HPRN, Medical 200 mg Starting Branch on Wed02/22/22 at 1245, Until Discontinu ed, Routine, Nausea and Vomiting (N/V) levoFLOXaci No 750mg 750 mg, U nivers n [...] 20 :38 Starting Medic al mg on [place] Branch 02/22/22 at 0935, Until 02/25/22 at 0319, Routine, Pain (scale 1-3) ceFEPIme 2021- No 2000mg 2,000 mg, U nivers (MAXIPIME) 02-22 IV ity of 2,000 mg in 13:15: 14:10 Piggyback, [place] NaCl 0.9% 00 :00 ONCE, 1 Medical (NS) 50 mL dose, On Branc h MINI-BAG [place] 02/22/22 at 0815, Administer over 30 Minutes, 50 mL
Reas on for Anti-Infec tive: Documented Infection< br>Documen alden Infection Site: Respirator y
Du ration of Therapy: 10 days acetaminoph 2021- No 500mg 500 mg, U nivers en 02-22 Oral, ONCE ity of (TYLENOL) 10:30: 09:34 NOW, 1 [place] tablet 500 00 :00 dose, On Medic al mg [facility] 02/22/22 at 0530, Routine HYDROcodone [...] [facility] Branch tablet 02/21/22 at 1815, Routine rosuvastati [...] 00 First dose Medical on [facility] 02/21/22 at 0900, Until Discontinu ed, Routine spironolact 2021- No 25mg 25 mg, Uni vers one 02-2103 Oral, ity of (ALDACTONE) 14:00: 03:59 DAILY, Compa as tablet 25 00 :42 First dose Medi michel mg on [facility] 02/21/22 at 0900, Until Discontinu ed, Routine furosemide 2021- No 40mg 40 mg, Univ ers (LASIX) 02-21 0802 Oral, ity of tablet 40 14:00: 03:28 DAILY, [place] mg 00 :19 First dose Medical on [facility] 02/21/22 at 0900, Until Discontinu ed, Routine predniSONE No 40mg 40 mg, Univ ers (DELTASONE) 02-21 Oral, ity of tablet 40 14:00: 13:46 DAILY, [place] mg 00 :51 First dose Medical on [facility] 02/21/22 at 0900, Until Discontinu ed, Routine HYDROcodone 2021- No 1{tbl} 1 tablet, Univers -acetaminop 02-21 Oral, ity of hen (NORCO 12:00: 11:09 ONCE, 1 Compa as 5) 5-325 mg 00 :00 dose, On Medi michel tablet 1 [facility] tablet 02/21/22 at 0700, Routine albuterol Yes 2.5mg 2.5 mg, Univ ers (PROVENTIL) 02-21 Inhalation it y of 2.5 mg /3 03:00: , Q8H, [place] mL (0.083 00 First dose Medi michel %) on [facility] nebulizer 02/20/22 at solution 2200, 2.5 mg Until Discontinu ed, Routine QUEtiapine Yes 50mg 50 mg, Unive rs (SEROQUEL) 02-21 Oral, QHS, ity of tablet 50 02:30: First dose [place] mg 00 on [facility] Medical 02/20/22 at Branch 2130, Until Discontinu ed, Routine Sliding Yes Subcutaneo Univ ers Scale 7-30 us, TID ity of Insulin - 02:00: MEALS+HS, Compa as Lispro 00 First dose Medical (HumaLOG) + on Wed Branch Fsbg 02/20/22 at Testing 2100, Until Discontinu ed, Routine pregabalin No 300mg 300 mg, Un alexia (LYRICA) 02-21 07-31 Oral, QHS, ity of capsule 300 02:00: [...] of 2,000 mg in 01:00: 02:37 Piggyback, [place] NaCl 0.9% 00 :00 ONCE, 1 Medical [...] 19 Starting Medical injection 1 on Wed [facility] 02/20/22 at 195, Until Discontinu ed, CT, Blood Glucose < or = 70 mg/dL and patient is unable to swallow or has mental changes. dextrose 50 2021-0 Yes 25mL 25 mL, Univ ers % in water 02-21 Slow IV ity of (D50W) 00:51: Push, PRN, [place] injection 19 Starting Medica l 25 mL on Wed [place] 02/20/22 at 195, Until Discontinu ed, CT, Blood Glucose < or = 70 mg/dL and patient is unable to swallow or has mental status changes. acetaminoph 2021- No 650mg 650 mg, U nivers en 02-21 Oral, ity of (TYLENOL) 00:26: 14:35 Q6HPRN, [place] tablet 650 11 :39 Starting Medic al mg on Wed [place] 02/20/22 at 1926, Until 02/22/22 at 0935, Routine, Pain (scale 1-3), Pain (scale 4-6) furosemide 0 Yes 40mg Take 1 Unive rs 40 mg 7-27 tablet by ity of tablet 00:00: mouth in [place] [address] the Medical morning. Branch furosemide 2021-0 Yes 40mg Take 1 Unive rs 40 mg 7-27 tablet by ity of tablet 00:00: mouth in [place] [address] the Medical morning. Branch furosemide 2021-0 Yes 40mg Take 1 Unive rs 40 mg 7-27 tablet by ity of tablet 00:00: mouth in [place] [address] the Medical morning. Branch furosemide 2021-0 Yes 40mg Take 1 Unive rs 40 mg 7-27 tablet by ity of tablet 00:00: mouth in [place] [address] the Medical morning. Branch furosemide 2021-0 Yes 40mg Take 1 Unive rs 40 mg 7-27 tablet by ity of tablet 00:00: mouth in [place] [address] the Medical morning. Branch furosemide 2021-0 Yes 40mg Take 1 Unive rs 40 mg 7-27 tablet by ity of tablet 00:00: mouth in [place] [address] the Medical morning. Branch furosemide 2021-0 Yes 40mg Take 1 Unive rs 40 mg 7-27 tablet by ity of tablet 00:00: mouth in [place] 00 the Medical morning. Branch furosemide 2022-0 Yes 40mg Take 1 Unive rs 40 mg 7-27 tablet by ity of tablet 00:00: mouth in [place] 00 the Medical morning. Branch furosemide 2022-0 Yes 40mg Take 1 Unive rs 40 mg 7-27 tablet by ity of tablet 00:00: mouth in [place] 00 the Medical morning. Branch furosemide 2022-0 Yes 40mg Take 1 Unive rs 40 mg 7-27 tablet by ity of tablet 00:00: mouth in [place] 00 the Medical morning. Branch furosemide 2022-0 Yes 40mg Take 1 Unive rs 40 mg 7-27 tablet by ity of tablet 00:00: mouth in [place] 00 the Medical morning. Branch furosemide 2022-0 Yes 40mg Take 1 Unive rs 40 mg 7-27 tablet by ity of tablet 00:00: mouth in [place] 00 the Medical morning. Branch furosemide 2022-0 Yes 40mg Take 1 Unive rs 40 mg 7-27 tablet by ity of tablet 00:00: mouth in [place] 00 the Medical morning. Branch furosemide 2022-0 Yes 40mg Take 1 Unive rs 40 mg 7-27 tablet by ity of tablet 00:00: mouth in [place] 00 the Medical morning. Branch furosemide 2022-0 Yes 40mg Take 1 Unive rs 40 mg 7-27 tablet by ity of tablet 00:00: mouth in [place] 00 the Medical morning. Branch furosemide 2022-0 Yes 40mg Take 1 Unive rs 40 mg 7-27 tablet by ity of tablet 00:00: mouth in [place] 00 the Medical morning. Branch HYDROcodone 2022-0 [...] by ity of hr tablet 18:10: mouth [place] 37 daily with Medical breakfast. Branch spironolact Yes 25mg Take 25 mg Univers one 25 mg -26 by mouth ity of tablet 18:10: in the [place] 37 morning Medical and 25 mg Branch [...] ity of 2,000 mg in 03:30: Piggyback, [place] NaCl 0.9% 00 Q12H ABX, Medic al (NS) 50 mL First dose [facility] piggyback on Wed02/16/22 at 2230, Until Discontinu [...] No 2000mg 2,000 mg, U nivers (MAXIPIME) 02-1625 IV ity of 2,000 mg in 15:30: 15:30 [place], [place] NaCl 0.9% 00 :00 ONCE, 1 Medical (NS) 50 mL dose, On Branc h piggyback Wed02/16/22 at 1030, Administer over 30 Minutes, 50 mL
Reas on for Anti-Infec tive: Documented Infection< br>Documen aledn Infection Site: Respirator y
Du ration of Therapy: 7 days lidocaine 2021- No 5mL 5 mL, Univer s 1% (PF) 02-16 07-25 Subcutaneo ity o f (XYLOCAINE) 14:45: 22:45 us, ONCE, [place] injection 5 00 :00 1 dose, On Me dical mL [facility] 02/16/22 at 0945, Routine NaCl 0.9% Yes 10mL 10 mL, Univer s (NS) 02-16 Slow IV ity of injection 14:36: Push, PRN, [place] 10 mL 37 Starting Medical on Wed [place] 02/16/22 at 0936, Until Discontinu ed, Routine, line maintenanc e furosemide 2021- No 40mg 40 mg, Univ ers (LASIX) 02-16 Oral, BID, ity o f tablet 40 01:00: 12:21 First dose [place] mg 00 :21 on [facility] 02/15/22 at Branch 2000, Until Discontinu ed, Routine insulin Yes 24U 24 Units, Unive rs glargine 02-15 Subcutaneo ity o f (LANTUS 16:53: us, Q24H, [place] U-100) 00 First dose Medical injection (after Branch 24 Units last modificati on) on [facility] 02/15/22 at 1153, Until Discontinu ed, Routine [...] last Branch Fsbg modificati Testing on) on [facility] 02/14/22 at 1600, Until Discontinu ed, Routine [...] Branch 21 Units last modificati on) on [facility] 02/14/22 at 1153, Until Discontinu ed, Routine [...] IV it y of 17:55: 22:35 Infusion, [place] 58 :45 TITRATE, Medical Starting Branch on Wed02/13/22 at 1255, Until Wed02/13/22 at 1735, Routine Sliding 2021- No Subcutaneo Uni vers Scale 7-22 07-23 us, Q4H, ity of Insulin - 17:00: 17:59 First dose [place] lispro 00 :02 on Wed Medical (humaLOG) + 02/13/22 at Br anch Fsbg 1200, Testing Until Discontinu ed, Routine metoprolol 2021-0 Yes 25mg 25 mg, Unive rs succinate 02-13 Oral, ity of XL (TOPROL 14:00: DAILY, [place] XL) tablet 00 First dose Med ical 25 mg on Wed Branch 02/13/22 at 0900, Until Discontinu ed, Routine aspirin 2021-0 Yes 81mg 81 mg, Univers chewable 02-13 Oral, ity of tablet 81 14:00: DAILY, [place] mg 00 First dose Medical on Wed Branch 02/13/22 at 0900, Until Discontinu ed, Routine acetaminoph 0 Yes 650mg 650 mg, Un alexia en 02-13 Oral, ity of (TYLENOL) 11:54: Q4HPRN, [place] tablet 650 52 Starting Medic al mg [...] First dose [place] mg 00 on [facility] 02/12/22 at Branch 2100, Until Discontinu ed, Routine rosuvastati 0 Yes 10mg 10 mg, Univ ers n (CRESTOR) 02-13 Oral, QHS, it y of tablet 10 02:00: First dose [place] mg 00 on [facility] 02/12/22 at Branch 2100, Until Discontinu ed, Routine pregabalin 0 2021- No 300mg 300 mg, Un alexia [...] IV Push, ity of (PF)) 21:36: Q6HPRN, [place] injection 4 19 Nausea and Me dical mg Vomiting Branch (N/V), Starting on [place] 02/12/22 at 1636
Do ses of ondansetro n 16 mg and above need to be administer ed via IV piggyback. For Dose >=24mg ECG monitoring is advisable.
ipratropium Yes 3mL 3 mL, Unive rs -albuteroL 02-12 Inhalation ity of (DUONEB) 19:00: , Q6H, [place] 0.5 mg-3 00 First dose Medic al [...] of 1,000 mg in 09:15: 14:35 Piggyback, [place] NaCl 0.9% 00 :41 Q24H ABX, Medic al (NS) 50 mL First dose [facility] MINI-BAG on [place] 02/12/22 at 0415, Until Discontinu ed, Administer over 30 Minutes, 50 mL
Reas on for Anti-Infec tive: Documented Infection< br>Documen alden Infection Site: Respirator y
Durat ion of Therapy: 7 days albuterol Yes 2.5mg 2.5 mg, Univ ers (PROVENTIL) 02-12 Inhalation it y of 2.5 mg /3 08:45: , Q4HPRN, Compa as mL (0.083 01 Starting Medica l %) on [facility] Branch nebulizer 02/12/22 at solution 0345, 2.5 mg Until Discontinu ed, Routine, Shortness of Breath, Wheezing NaCl 0.45% 2021- No 1000mL Univ ers (1/2NS) 02-12 ity of 1000 mL + 08:15: 22:29 [place] KCL 20 mEq 00 :30 [facility] azithromyci 2021- No 500mg 500 mg, IV Univers n 02-12 Piggyback, ity of (ZITHROMAX) 08:09: 14:35 Q24H ABX, [place] 500 mg in 00 :41 First dose Medi michel NaCl 0.9% on [facility] Branch (NS) 250 mL 02/12/22 at [...] :30 mL/hr, PRN Medic al mEq - [facility] Branch INSTRUCTIO NS, Starting on [place] 02/12/22 at 0259, Until [place] 02/12/22 at 1729, CT, Blood glucose control furosemide 2021- No 40mg 40 mg, IV U nivers (LASIX) 02-12 Push, ity of injection 03:15: 04:17 ONCE, 1 [place] 40 mg 00 :00 dose, On [facility] Branch 02/11/22 at 2215, CT insulin 2021- No 10U 10 Units, Univ ers regular 02-12 Slow IV ity of human 03:15: 04:13 Push, [place] (HUMULIN R) 00 :00 ONCE, 1 Medic al injection dose, On Branch 10 Units 02/11/22 at 2215, STAT iopamidol 2021- No [id number] 60mL 60 mL, Univers (ISOVUE 02-12 Intravenou ity o f 370-500 mL) 02:30: 02:30 s, ONCE, 1 [place] injection 00 :00 dose, On Medica l 60 mL Wed [place] 02/11/22 at 2145, Routine predniSONE Yes [id number] 50mg Take 1 Univers 50 mg 7-10 00 tablet by ity of tablet 00:00: mouth [place] 00 daily. Medical Branch aspirin 81 Yes [id number] 81mg Take 1 Univers mg chewable 7-10 00 tablet by ity of tablet 00:00: mouth [place] 00 daily with Medical breakfast. Branch predniSONE Yes [id number] 50mg Take 1 Univers 50 mg 7-10 00 tablet by ity of tablet 00:00: mouth [place] 00 daily. Medical Branch aspirin 81 Yes [id number] 81mg Take 1 Univers mg chewable 7-10 00 tablet by ity of tablet 00:00: mouth [place] 00 daily with Medical breakfast. [place] aspirin 81 Yes [id number] 81mg Take 1 Univers mg chewable 7-10 00 tablet by ity of tablet 00:00: mouth [place] 00 daily with Medical breakfast. Branch aspirin 81 Yes [id number] 81mg Take 1 Univers mg chewable 7-10 00 tablet by ity of tablet 00:00: mouth [place] 00 daily with Medical breakfast. Branch aspirin 81 0 Yes [id number] 81mg Take 1 Univers mg chewable 7-10 00 tablet by ity of tablet 00:00: mouth [place] 00 daily with Medical breakfast. Branch aspirin 81 0 Yes [id number] 81mg Take 1 Univers mg chewable 7-10 00 tablet by ity of tablet 00:00: mouth [place] 00 daily with Medical breakfast. [place] aspirin 81 Yes [id number] 81mg Take 1 Univers mg chewable 7-10 00 tablet by ity of tablet 00:00: mouth [place] 00 daily with Medical breakfast. Branch aspirin 81 2021-0 Yes [id number] 81mg Take 1 Univers mg chewable 7-10 00 tablet by ity of tablet 00:00: mouth [place] 00 daily with Medical breakfast. Branch aspirin 81 2021-0 Yes [id number] 81mg Take 1 Univers mg chewable 7-10 00 tablet by ity of tablet 00:00: mouth [place] 00 daily with Medical breakfast. Branch aspirin 81 2021-0 Yes [id number] 81mg Take 1 Univers mg chewable 7-10 00 tablet by ity of tablet 00:00: mouth [place] 00 daily with Medical breakfast. Branch aspirin 81 2021-0 Yes [id number] 81mg Take 1 Univers mg chewable 7-10 00 tablet by ity of tablet 00:00: mouth [place] 00 daily with Medical breakfast. Branch aspirin 81 2021-0 Yes [id number] 81mg Take 1 Univers mg chewable 7-10 00 tablet by ity of tablet 00:00: mouth [place] 00 daily with Medical breakfast. Branch aspirin 81 2021-0 Yes [id number] 81mg Take 1 Univers mg chewable 7-10 00 tablet by ity of tablet 00:00: mouth [place] 00 daily with Medical breakfast. Branch aspirin 81 2021-0 Yes [id number] 81mg Take 1 Univers mg chewable 7-10 00 tablet by ity of tablet 00:00: mouth [place] 00 daily with Medical breakfast. Branch aspirin 81 2021-0 Yes [id number] 81mg Take 1 Univers mg chewable 7-10 00 tablet by ity of tablet 00:00: mouth [place] 00 daily with Medical breakfast. Branch aspirin 81 2021-0 Yes [id number] 81mg Take 1 Univers mg chewable 7-10 00 tablet by ity of tablet 00:00: mouth [place] 00 daily with Medical breakfast. Branch aspirin 81 2021-0 Yes [id number] 81mg Take 1 Univers mg chewable 7-10 00 tablet by ity of tablet 00:00: mouth [place] 00 daily with Medical breakfast. Branch aspirin 81 2021-0 Yes [id number] 81mg Take 1 Univers mg chewable 7-10 00 tablet by ity of tablet 00:00: mouth [place] 00 daily with Medical breakfast. Branch predniSONE 2021- No [id number] 50mg Take 1 Univers 50 mg 02-01 tablet by ity of tablet 00:00: 00:00 mouth [place] 00 :00 daily. Medical Branch aspirin 81 2021- No [id number] 81mg Take 1 Univers mg chewable 02-01 tablet by it y of tablet 00:00: 00:00 mouth [place] 00 :00 daily with Medical breakfast. Branch predniSONE 2021- No [id number] 50mg Take 1 Univers 50 mg 02-01 tablet by ity of tablet 00:00: 00:00 mouth [place] 00 :00 daily for Medical 2 days. Branch predniSONE 2021- No 50mg 50 mg, Univ ers (DELTASONE) 01-31 Oral, ity of tablet 50 14:00: 13:59 [...] Take 10 mg Univers rine 5 mg 01-31 by mouth 3 ity of tablet 13:56: (three) [place] 12 times Medical daily. Branch LORazepam Yes .5mg Take 0.5 Univ ers 0.5 mg - mg by ity of tablet 13:56: mouth 2 [place] 12 (two) Medical times Branch daily as needed. ipratropium Yes 1{ampul 1 Ampule Univers -albuterol 01-31 e} every 4 ity of 0.5 mg-3 13:56: (four) [place] mg(2.5 mg 12 hours as Medica l base)/3 mL needed for [facility] nebulizer Wheezing. solution semaglutide Yes inject Univ [...] Take 10 mg Univers rine 5 mg -09 by mouth 3 ity of tablet 13:56: [...] Medica l base)/3 mL needed for [facility] nebulizer Wheezing. solution semaglutide Yes inject Univ [...] 12 daily with Medical breakfast. Branch Potassium 2021-0 202- No Take by Univ ers Gluconate 01-31 07-09 mouth ity of 595 mg (99 11:48: 00:00 weekly. Compa as mg) Tab 08 :00 Medical Branch spironolact 2021- No 25mg Take 25 mg Univers one 25 mg 01-31 by mouth 2 ity of tablet 11:48: 00:00 (two) [place] 08 :00 times Medical daily. Branch LORazepam [...] 2000, Until Discontinu ed, Routine metoprolol Yes [id number] 25mg Take 1 Univers succinate 01-31 tablet by ity o f XL 25 mg 24 00:00: mouth 2 Compa as hr tablet 00 (two) Medical times Branch daily. metoprolol Yes [id number] 25mg Take 1 Univers succinate 01-31 tablet by ity o f XL 25 mg 24 00:00: mouth 2 [place] as hr tablet 00 (two) Medical times Branch daily. metoprolol 0 Yes [id number] 25mg Take 1 Univers succinate 01-31 tablet by ity o f XL 25 mg 24 00:00: mouth 2 [place] as hr tablet 00 (two) Medical times Branch daily. metoprolol 0 Yes [id number] 25mg Take 1 Univers succinate 01-31 tablet by ity o f XL 25 mg 24 00:00: mouth 2 [place] as hr tablet 00 (two) Medical times Branch daily. furosemide 2021-0 2021- No [id number] 40mg Take 1 Univers 40 mg 01-31 tablet by ity of tablet 00:00: 04:59 mouth 2 [place] 00 :00 (two) Medical times Branch daily for 30 days. furosemide 2021-0 2- No [id number] 40mg Take 1 Univers 40 mg 01-31 tablet by ity of tablet 00:00: 04:59 mouth 2 [place] 00 :00 (two) Medical times Branch daily for 30 days. metoprolol 2021- No [id number] 25mg Take 1 Univers succinate 01-31 00 tablet by ity of XL 25 mg 24 00:00: 00:00 mouth 2 [place] hr tablet 00 :00 (two) Medical times Branch daily. furosemide 2021- No [id number] 40mg Take 1 Univers 40 mg 01-31 tablet by ity of tablet 00:00: 00:00 mouth 2 [place] 00 :00 (two) Medical times Branch daily for 30 days. metoprolol 2021- No [id number] 25mg Take 1 Univers succinate 01-31 00 tablet by ity of XL 25 mg 24 00:00: 00:00 mouth 2 [place] hr tablet 00 :00 (two) Medical times Branch daily for 30 days. acetaminoph Yes 650mg 650 mg, Un alexia en 01-30 Oral, ity of (TYLENOL) 19:27: Q6HPRN, [place] tablet 650 59 Starting Medic al mg on Wed Branch 01/30/22 at 1427, Until Discontinu ed, Routine, Pain (scale 1-3), Temp > 38.5 C methylPREDN 2021- No 40mg 40 mg, Uni vers ISolone sod 01-29 Intravenou i ty of succ 14:00: 18:37 s, DAILY, [place] (SOLU-MEDRO 00 :50 First dose Me dical L (PF)) on [place] Branch injection 01/29/22 at 40 mg 0900, Until Discontinu ed, 1 mL ceFEPIme 2021- No 2000mg 2,000 mg, U nivers (MAXIPIME) 01-29 IV ity of 2,000 mg in 07:15: 22:11 Piggyback, [place] NaCl 0.9% 00 :39 Q8H ABX, Medica l (NS) 50 mL First dose [facility] MINI-BAG on [place] 01/29/22 at 0215, Until [...] ity of 2,000 mg in 23:45: 01:18 Piggyback, [place] NaCl 0.9% 00 :00 ONCE, 1 Medical (NS) 50 mL dose, On [facility] h MINI-BAG Wed01/28/22 at 1845, Administer over 30 Minutes, 50 mL
[place] for Anti-Infec tive: Documented Infection< br>Documen alden Infection Site: Respirator y
Du ration of Therapy: 7 days propofoL IV Yes 5ug/kg/ 5-50 Uni vers infusion 01-28 min mcg/kg/min ity o f 22:46: ?112.5 kg [place] 21 (3.375-33. Medical 75 mL/hr, Branch rounded [...] of 2.5 mg /3 21:00: , Q4H, [place] mL (0.083 00 First dose Medi michel %) (after Branch nebulizer last solution modificati 2.5 mg on) on Wed01/28/22 at 1600, Until Discontinu ed, Routine acetylcyste 2022-0 Yes 4mL 800 mg (4 U nivers ine 01-28 mL), ity of (MUCOMYST) 21:00: Inhalation [place] 200 mg/mL 00 , Q4H, Medical (20 %) First dose Branch solution on Wed 800 mg 01/28/22 at 1600, Until Discontinu ed, Routine LORazepam 2021- No .5mg 0.5 mg, Univ ers (ATIVAN) 01-28 07- Slow IV ity of injection 20:30: 19:28 Push, [place] 0.5 mg 00 :00 ONCE, 1 Medical dose, On Branch Wed01/28/22 at 1530, Routine
Is the medication being used for status epilepticu s? No furosemide 2021- No 5mg/h 5 mg/hr Un alexia (LASIX) 200 01-28- (2.5 ity of mg in NaCl 19:00: 18:37 mL/hr), IV [place] 0.9% (NS) 00 :50 Infusion, Medic al 100 mL CONTINUOUS Branch infusion , Starting on Wed01/28/22 at 1400
Do Not Refrigerat e.
sulfur 2021- No [id number] 5mL 5 mL, Univ ers hexafluorid 01-28 Intravenou i ty of e microsphr 15:45: 15:45 s, ONCE, 1 [place] (LUMASON) 00 :00 dose, On Medica l injection 5 Wed01/28/22 Br anch mL at 1045, Routine
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 : STELLA IVORY enoxaparin [...] Yes 60U 60 Units, Unive rs glargine 7-06 Subcutaneo ity o f (LANTUS 14:00: us, DAILY, [place] U-100) 00 First dose Medical injection on Wed Branch 60 Units 01/28/22 at 0900, Until Discontinu ed, Routine magnesium 0 Yes 400mg 400 mg, Univ ers oxide - Oral, BID, ity of (MAG-OX 13:00: First [...] Yes 50ug 50 mcg, Uni vers ne - Oral, ity of (SYNTHROID) 11:00: QAM-0600, [place] tablet 50 00 First dose Medi michel mcg on Wed [place] 01/28/22 at 0600, Until Discontinu ed, Routine [...] Yes 8.6mg 8.6 mg, Uni vers (SENOKOT) - Oral, BID, ity of tablet 8.6 07:15: First dose [place] mg 00 on Wed Medical 01/28/22 at Branch 0215, Until Discontinu ed, Routine docusate 0 Yes 100mg 100 mg, Unive rs (COLACE) 7- Oral, BID, ity o f capsule 100 07:15: First dose [place] mg 00 on Wed [facility] 01/28/22 at Branch 0215, Until Discontinu ed, Routine pregabalin 0 Yes 200mg 200 mg, Uni vers (LYRICA) 01-28 Oral, BID, ity o f capsule 200 07:15: First dose [place] mg 00 on Wed [facility] 01/28/22 at Branch 0215, Until Discontinu ed, Routine ondansetron 0 Yes 4mg 4 mg, Slow Univers (ZOFRAN 01-28 IV Push, ity of (PF)) 07:04: Q6HPRN, [place] injection 4 34 Starting Medi michel mg on Wed [place] 01/28/22 at 0204, Until Discontinu ed, Routine, Nausea and Vomiting (N/V) glucagon 0 Yes 1mg 1 mg, Univers (GLUCAGEN 01-28 Intramuscu ity of DIAGNOSTIC 07:03: lar, PRN, [place] KIT) 14 Starting Medical injection 1 on Wed [facility] 01/28/22 at 0203, Until Discontinu ed, CT, Blood Glucose < or = 70 mg/dL and patient is unable to swallow or has mental changes. glucagon 0 Yes 1mg 1 mg, Univers (GLUCAGEN 01-28 Intravenou ity of DIAGNOSTIC 07:03: s, PRN - Compa as KIT) 14 SEE Medical injection 1 INSTRUCTIO Br anch mg NS, Starting on Wed01/28/22 at 0203, Until Discontinu ed, Routine, hypoglycem ia LORazepam 0 Yes .5mg 0.5 mg, Unive rs (ATIVAN) 01-28 Oral, ity of tablet 0.5 07:01: TIDPRN, [place] mg 47 Starting Medical on [facility] 01/28/22 at 0201, Until Discontinu ed, Routine, Anxiety famotidine 0 Yes 20mg 20 mg, Unive rs (PEPCID AC) 01-28 Oral, BID, it y of tablet 20 07:00: First dose [place] mg 00 on [facility] 01/28/22 at Branch 0200, Until Discontinu ed, Routine QUEtiapine 0 Yes 100mg 100 mg, Uni vers (SEROQUEL) 01-28 Oral, QHS, ity of tablet 100 07:00: First dose [place] mg 00 on [facility] 01/28/22 at Branch 0200, Until Discontinu ed, Routine metoprolol 2022-0 Yes 25mg 25 mg, Unive rs succinate 01-28 Oral, BID, ity of XL (TOPROL 07:00: First dose [place] XL) tablet 00 on Wed Medical 25 mg 01/28/22 at Branch 0200, Until Discontinu ed, Routine ipratropium 2021- No 3mL 3 mL, [place] [facility] ers -albuteroL 01-28 07-06 Inhalation it y of (DUONEB) 07:00: 20:55 , QID, [place] 0.5 mg-3 00 :07 First dose Medic al mg(2.5 mg on Wed base)/3 mL 01/28/22 at nebulizer 0200, solution 3 Until mL Discontinu ed, Routine cyclobenzap Yes 10mg 10 mg, [place] [facility] ers rine 01-28 Oral, ity of [...] ed, Routine, Pain (scale 4-6) furosemide 2021-0 2021- No 40mg 40 mg, IV U nivers (LASIX) 01-28 Push, ity of injection 03:15: 03:17 ONCE, 1 [place] 40 mg 00 :00 dose, On Wed01/27/22 Branch at 2215, CT morpHINE (4 2021- No 4mg 4 mg, Slow Univers mg/mL) 01-28 IV Push, ity of injection 4 02:30: 02:25 ONCE, 1 [place] mg 00 :00 dose, On Wed01/27/22 Branch at 2130, STAT ondansetron 2021-0 2021- No 4mg 4 mg, Slow Univers (ZOFRAN 01-28- IV Push, ity of (PF)) 02:30: 02:23 ONCE, 1 [place] injection 4 00 :00 dose, On Medi michel mg 01/27/22 Branch at 2130, CT HYDROcodone Yes 1{tbl} [...] Medica l base)/3 mL needed for [facility] nebulizer Wheezing. solution spironolact Yes 25mg Take [...] No 1mg 1 mg, Unive rs (XANAX) - 06-21 Oral, ity of tablet 1 mg 02:45: 01:35 ONCE, 1 [place] 00 :00 dose, On Medical Mon Branch 01/12/22 at 2145, CT HYDROcodone 2021-2021- No 1{tbl} 1 tablet, Univers -acetaminop 01-13 Oral, ONCE i ty of hen (NORCO) 02:00: 01:08 NOW, 1 Compa as 10-325 mg 00 :00 dose, On Medica l tablet 1 Mon Branch tablet 01/12/22 at 2100, Routine ibuprofen 0 2021- No 600mg 600 mg, Uni vers [...] Medica l base)/3 mL needed for [facility] nebulizer Wheezing. solution spironolact Yes 25mg Take [...] as Medica l base)/3 mL needed for [facility] nebulizer Wheezing. solution spironolact Yes 25mg Take [...] as Medica l base)/3 mL needed for [facility] nebulizer Wheezing. solution spironolact Yes 25mg Take [...] Medical (eight) Branch hours as needed. ALPRAZolam 2021-0 Yes [id number] .5mg Take 1 Univers 0.5 mg 6-20 tablet by ity of tablet 00:00: mouth 3 [place] 00 (three) Medical times Branch daily. ALPRAZolam 2021-0 Yes [id number] .5mg Take 1 Univers 0.5 mg 6-20 tablet by ity of tablet 00:00: mouth 3 [place] 00 (three) Medical times Branch daily. ALPRAZolam 2021-0 Yes [id number] .5mg Take 1 Univers 0.5 mg 6-20 tablet by ity of tablet 00:00: mouth 3 [place] 00 (three) Medical times Branch daily. ALPRAZolam 2021-0 Yes [id number] .5mg Take 1 Univers 0.5 mg 6-20 tablet by ity of tablet 00:00: mouth 3 [place] 00 (three) Medical times Branch daily. ALPRAZolam 2021-0 2021- No [id number] .5mg Take 1 Univers 0.5 mg 6-20 [...] Branch Wed01/09/22 at 0915, Routine propofoL IV 0 Yes 5ug/kg/ 5-50 Uni vers infusion 6-17 min mcg/kg/min ity o f 14:02: ?104.3 kg [place] 51 (3.129-31. Medical 29 mL/hr, Branch rounded [...] 1 Medical 100 mcg dose, On Branch 01/07/22 at 1515, Routine busPIRone 0 Yes 5mg 5 mg, Univers (BUSPAR) 01-07 Enteral, ity of tablet 5 mg 18:00: BID, First [place] 00 dose on Medical Wed Branch 01/07/22 at 1300, Until Discontinu ed, Routine haloperidol Yes 2mg 2 mg, Slow Univers lactate 15 IV Push, ity of (HALDOL) 17:41: Q4HPRN, [place] injection 2 00 Starting Medi michel mg on Wed Branch 01/07/22 at 1241, Until Discontinu ed, Routine, Agitation furosemide No 40mg 40 mg, Univ ers (LASIX) 01-07 Slow IV ity of injection 17:00: 10:59 Push, Q6H, [place] 40 mg 00 :00 3 doses, Medical First dose Branch (after last modificati on) on Wed01/07/22 at 1200, Last dose on [place] 01/08/22 at 0000, Routine propofoL IV Yes 5ug/kg/ 5-50 Uni vers infusion 6-14 min mcg/kg/min ity o f 21:35: ?104.3 kg [place] 37 (3.129-31. Medical 29 mL/hr, Branch rounded [...] ity of 1,000 mg in 19:00: 22:16 [place], [place] NaCl 0.9% 00 :00 Q8H ABX, 4 [...] 01-06 Oral, ity of sodium 18:45: DAILY, [place] (SENOKOT-S) 00 First dose Me dical 8.6-50 mg on Wed per tablet 01/06/22 at 1 tablet 1345, Until Discontinu ed, Routine polyethylen Yes 17g 17 g, [place] [facility] glycol 01-06 Enteral, ity of 3350 powder 18:45: DAILY, [place] 17 g 00 First dose Medical on Wed01/06/22 at 1345, Until Discontinu ed, Routine propofoL IV 2021- No 5ug/kg/ 5-50 Un a[place]ia infusion 01-06 06-14 min mcg/kg/min ity of 01:12: 18:02 ?104.3 kg [place] 34 :29 (3.129-31. Medical 29 mL/hr, Branch [...] doses, Medical mEq/100 mL First dose [facility] RTU IVPB 20 on [place] mEq 01/04/22 at 1000, Last dose on [place] 01/04/22 at 1200, 100 mL insulin 2021- No 10U 10 Units, [place] [facility] ers glargine 01-04 Subcutaneo ity of (LANTUS 14:00: 15:09 us, DAILY, Compa as U-100) 00 :45 First dose Medical injection (after Branch 10 Units last modificati on) on [place] 01/04/22 at 0900, Until Discontinu ed, Routine metoprolol 2021- No 5mg 5 mg, Slow Univers (LOPRESSOR) 01-04 IV Push, ity of injection 5 13:45: 17:13 BID, First [place] mg 00 :45 dose on Medical [facility] 01/04/22 at 0845, Until Discontinu ed, Routine QUEtiapine 2021- No 25mg 25 mg, [place] [facility] ers (SEROQUEL) 01-04 Oral, BID, it y of tablet 25 13:45: 13:55 First dose [place] mg 00 :32 (after Medical last Branch modificati on) on [place] 01/04/22 at 0845, Until Discontinu ed, Routine iopamidol 2021- No [id number] 100mL 100 mL, Univers (ISOVUE 01-04 Intravenou ity o f 370-500 mL) 10:15: 08:55 s, ONCE, 1 [place] injection 00 :00 dose, On Medica l 100 mL [facility] 01/04/22 at 0515, Routine propofoL IV 2021- No 5ug/kg/ 5-50 Un alexia infusion 01-03 0613 min mcg/kg/min ity of 21:04: 21:03 ?104.3 [...] insulin No 10U 10 Units, [place] [facility] ers glargine 01-03 Subcutaneo ity [...] Branch 01/03/22 at 1445, Routine FENTanyl PF 2021- No 50ug 50 mcg, [...] Starting Branch on 01/03/22 at 0134, Until Wed01/05/22 at 0133, Routine, Pain (scale 4-6)
Us [...] mcg/kg/min ity of 22:07: 21:04 ?104.3 kg [place] 53 :48 (3.129-31. Medical 29 mL/hr, Branch [...] ity o f (PF)) 19:24: 19:34 Push, [place] injection 00 :00 ONCE, 1 Medical 100 mcg dose, On Branch Wed01/02/22 at 1430, Routine meropenem 2021- No 1000mg 1,000 mg, Univers (MERREM) 01-02 IV ity of 1,000 mg in 19:00: 15:44 [place], [place] NaCl 0.9% 00 :06 Q8H ABX, Medica l (NS) 50 mL First dose [facility] MINI-BAG on Wed01/02/22 at 1400, Until Discontinu ed, Administer over 3 Hours, 50 mL
Rest ricted use approved by: [email or web address]
[place] for Anti-Infec tive: Empiric Therapy for Suspected Infection< br>Empiric Therapy Site: Respirator y
Durat ion of therapy: 72 hours Sliding Yes Subcutaneo Univ ers Scale 6-10 us, Q6H, ity of Insulin-Reg 17:00: First dose [place] ular + Fsbg 00 on Wed Medica l Testing 01/02/22 at Branch 1200, Until Discontinu ed, Routine dexMEDEtomi 2021- No .2ug/kg 0.2-1.5 Univers dine 400 01-02-19 /h mcg/kg/hr ity o f mcg in [...] maximum allowed dose, contact prescriber .
furosemide 0 202- No 40mg 40 mg, Univ ers (LASIX) 01-02 06-10 Slow IV ity of injection 15:15: 14:43 Push, [place] 40 mg 00 :00 ONCE, 1 Medical dose, On Branch Wed01/02/22 at 1015, Routine glucagon Yes 1mg 1 mg, Univers (GLUCAGEN 10 Intramuscu ity of DIAGNOSTIC 14:10: [place], PRN, [place] KIT) 46 Starting Medical injection 1 on Wed Branch mg 01/02/22 at 0910, Until Discontinu ed, CT, Blood Glucose < or = 70 mg/dL and patient is unable to swallow or has mental changes. dextrose Yes 250mL 250 mL, IV Un alexia 10% (D10W) 6-10 Infusion, ity of bolus 14:10: PRN - SEE [place] infusion 46 INSTRUCTIO Medic al 250 mL [...] Yes 3mL 3 mL, Unive rs -albuteroL 6-10 Inhalation ity of (DUONEB) 13:00: , Q4H, [place] 0.5 mg-3 00 First dose Medic al mg(2.5 mg (after Branch base)/3 mL last nebulizer modificati solution 3 on) on Fri mL 01/02/22 at 0800, Until Discontinu ed, Routine heparin 2021- Yes 5000U 5,000 Univers (porcine) 6-10 Units, ity of injection 13:00: [place]o [place] 5,000 Units 00 us, Q12H, Med ical First dose Branch on 01/02/22 at 0800, Until Discontinu ed, Routine insulin 2021- No 20U 20 Units, Univ ers glargine 01-02 Subcutaneo ity of (LANTUS 13:00: 14:11 us, BID, [place] U-100) 00 :23 First dose Medical injection [...] 4mL 800 mg (4 Univers ine 01-02 06-11 mL), ity of (MUCOMYST) 12:30: 19:38 Inhalation [place] 200 mg/mL 00 :09 , Q6H, Medical (20 %) First dose Branch solution on Wed 800 mg 01/02/22 at 0730, Until Discontinu ed, Routine acetylcyste 2021-2021- No 4mL 800 mg (4 Univers ine 01-02-10 mL), ity of (MUCOMYST) 12:30: 14:11 Inhalation [place] 200 mg/mL 00 :23 , Q6H, Medical (20 %) First dose Branch solution on Fri 800 mg 01/02/22 at 0730, Until Discontinu ed, Routine vancomycin 2021- No 15mg/kg 1,500 mg Univers 1500 mg in 01-02 (rounded ity of NS 500 mL 12:00: 14:27 from [place] IV 00 :44 1,564.5 mg Medical Piggyback [...] IV ity of 1 mEq/mL 11:45: 09:45 [facility], [place] (8.4 %) 00 :00 ONCE, 1 Medical injection dose, On Branch 100 mEq Wed01/02/22 at 0645, Routine meropenem 2021- No 1000mg 1,000 mg, Univers (MERREM) 01-02 IV ity of 1,000 mg in 11:15: 12:44 [facility], [place] NaCl 0.9% 00 :00 ONCE, 1 Medical [...] ASS score (0 to -1), Starting on 6/10/22 at 0604
In itiate infusion at 0.2 [...] :00 1 dose, On Me dical mg Fri Branch 01/02/22 at 0600, Routine gentamicin No [...] :00 dose, On Medica l 500 mg [facility] 01/02/22 at 0130, STAT
Re ason for Anti-Infec tive: Documented Infection< br>Documen alden Infection Site: Respirator y
Durat ion of Therapy: Other (see Comments) ondansetron No 4mg 4 mg, Slow Univers (ZOFRAN 12-09 IV Push, ity of (PF)) 05:45: 04:41 ONCE, 1 [place] injection 4 00 :00 dose, On Medi michel mg [facility] 12/09/21 at 0045, CT morpHINE (4 No 4mg 4 mg, Slow Univers mg/mL) 12-09 IV Push, ity of injection 4 05:45: 04:41 ONCE, 1 [place] mg 00 :00 dose, On Medical [facility] 12/09/21 at 0045, STAT levalbutero No 1.25mg 1.25 mg, Univers l (XOPENEX) 12-09 Inhalation i ty of nebulizer 05:00: 04:22 , ONCE, 1 [place] solution 00 :00 dose, On Medical 1.25 mg [facility] 12/09/21 at 0000, Routine predniSONE 2021- No [id number] 40mg Take 2 Univers 20 mg 3-02 03-06 tablets by ity of tablet 00:00: 05:59 mouth [place] 00 :00 daily for Medical 3 days. Branch predniSONE 2021- No [id number] 40mg Take 2 Univers 20 mg 3-02 [...] as Medica l base)/3 mL needed for [facility] nebulizer Wheezing. solution spironolact Yes 25mg Take [...] as Medica l base)/3 mL needed for [facility] nebulizer Wheezing. solution spironolact Yes 25mg Take [...] 49 subcutaneo Medical pen Branch injector metFORMIN 0 [...] Potassium Yes Take by Unive rs Gluconate 09-23 mouth ity of 595 mg (99 15:03: weekly. [place] mg) Tab 49 Medical Branch ipratropium Yes 1{ampul 1 Ampule Univers -albuterol 09-23 e} every 4 ity of 0.5 mg-3 15:03: (four) [place] mg(2.5 mg 49 hours as Medica l base)/3 mL needed for [facility] nebulizer Wheezing. solution spironolact Yes 25mg Take 25 mg Univers one 25 mg 09-23 by mouth 2 ity of tablet 15:03: (two) [place] 49 times Medical daily. [place] semaglutide Yes inject Univ ers (OZEMPIC) 09-23 under the ity o f 0.25 mg or 15:03: skin. [place] 0.5 mg(2 49 Medical mg/1.5 mL) [place] PnIj dulaglutide Yes Trulicity U nivers (TRULICITY) 09-23 3 mg/0.5 ity of 3 mg/0.5 mL 15:03: mL [place] PnIj 49 subcutaneo Medical pen Branch injector metFORMIN Yes 750mg Take 750 Uni vers 500 mg 24 09-23 mg by ity of hr tablet 15:03: mouth [place] 49 daily with Medical breakfast. [place] polyethylen Yes 17g 17 g, Unive rs e glycol 09-23 Oral, BID, ity o f 3350 powder 14:15: First dose [place] 17 g 00 on [facility] Medical 09/23/21 at Branch 0815, Until Discontinu ed, Routine proCHLORper 2021- No 5mg 5 mg, IV U nivers azine 09-23 Piggyback, ity of (COMPAZINE) 13:00: 12:33 ONCE, 1 [place] 5 mg in 00 :00 dose, On Medical NaCl 0.9% [facility] 09/23/21 Bran ch (NS) at 0700, piggyback 50 mL ondansetron 2021- No 8mg Take 8 mg Univers 8 mg tablet 09-23 by mouth ity of 12:53: 00:00 every 8 [place] 19 :00 (eight) Medical hours as Branch needed. ondansetron 2021- No 4mg 4 mg, Slow Univers (ZOFRAN 309-23 IV Push, ity of (PF)) 10:00: 09:12 ONCE, 1 [place] injection 4 00 :00 dose, On Medi michel mg 09/23/21 Branch at 0400, Routine ondansetron Yes 4mg 4 mg, Slow Univers (ZOFRAN 09-23 IV Push, ity of (PF)) 04:25: Q6HPRN, [place] injection 4 51 Starting Medi michel mg on Wed Branch 09/22/21 at 2225, Until Discontinu ed, Routine, Nausea and Vomiting (N/V) insulin Yes 60U 60 Units, Unive rs glargine 09-23 Subcutaneo ity o f (LANTUS 03:00: us, Q, [place] U-100) 00 First dose Medical injection on Wed Branch 60 Units 09/22/21 at 2100, Until Discontinu ed, Routine Sliding Yes Subcutaneo Univ ers Scale 3 us, Q4H, ity of Insulin - 02:45: First dose [place] Lispro 00 (after Medical (HumaLOG) + last Branch Fsbg modificati Testing on) on Wed09/22/21 at 2045, Until Discontinu ed, Routine azithromyci 2021- No [id number] 250mg Take 1 Univers n 09-23-06 tablet by ity of (ZITHROMAX 00:00: 05:59 mouth [place] Z-ULYSSES) 250 00 :00 daily for Medi michel mg tablet 4 days. Branch azithromyci 2021- No [id number] 250mg Take 1 Univers n 3- 03-06 tablet by ity of (ZITHROMAX 00:00: 05:59 mouth [place] Z-ULYSSES) 250 00 :00 daily for Medi michel mg tablet 4 days. Branch cyclobenzap Yes 5mg 5 mg, Unive rs rine 09-22 Oral, ity of (FLEXERIL) 23:04: TIDPRN, [place] tablet 5 mg 26 Starting Medi michel on Mon Branch 09/22/21 at 1704, Until Discontinu ed, [...] ity of bolus 20:39: PRN - SEE [place] infusion 11 INSTRUCTIO Medic al 250 mL [...] or has mental changes. sulfur 2021- No [id number] 5mL 5 mL, Univ ers hexafluorid 09-22 Intravenou i ty of e microsphr 18:45: 19:00 s, ONCE, 1 [place] (LUMASON) 00 :00 dose, On Medica l injection 5 Wed Branch mL 09/22/21 at 1300, Routine
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 : MARY GLORIA HYDROcodone Yes 1{tbl} 1 tablet, Univers -acetaminop 09-22 Oral, ity of hen (NORCO) 16:26: Q8HPRN, Compa as 10-325 mg 26 Starting Medica l tablet 1 on Wed [place] tablet 09/22/21 at 1026, Until Discontinu ed, Routine, Pain (scale 4-6), Pain (scale 7-10) furosemide Yes 40mg 40 mg, Unive rs (LASIX) 09-22 Oral, ity of tablet 40 15:00: DAILY, [place] mg 00 First dose Medical on [facility] Branch 09/22/21 at 0900, Until Discontinu ed, Routine predniSONE 2021- No 40mg 40 mg, Univ ers (DELTASONE) 09-22 03-05 Oral, ity of tablet 40 15:00: 14:59 DAILY, 5 Compa as mg 00 :00 doses, Medical First dose Branch on Wed09/22/21 at 0900, Last dose on Wed09/26/21 at 0900, Routine albuterol Yes 2.5mg 2.5 mg, [place] [facility] ers (PROVENTIL) 09-22 Inhalation it y of 2.5 mg /3 14:00: , Q4H, [place] mL (0.083 00 First dose Medi michel %) on Wed [place] nebulizer 09/22/21 at solution 0800, 2.5 mg Until Discontinu ed, Routine heparin Yes 5000U 5,000 Univers (porcine) 09-22 Units, ity of injection 14:00: Subcutaneo [place] 5,000 Units 00 us, Q12H, Med ical First dose Branch on Wed09/22/21 at 0800, Until Discontinu ed, Routine Sliding 2021- No Subcutaneo Uni vers Scale 09-2228 us, AC+HS, ity of Insulin-Reg 13:30: 19:17 First dose [place] ular + Fsbg 00 :38 on [facility] Medica l Testing 09/22/21 [...] Medical 40 mg First dose Branch on [facility] 09/22/21 at 0645, Until Discontinu ed dextrose 50 Yes 25mL 25 mL, Univ ers % in water 09-22 Slow IV ity of (D50W) 11:14: Push, PRN, [place] injection 28 Starting Medica l 25 mL on [facility] 09/22/21 at 0514, Until Discontinu ed, CT, Blood Glucose < or = 70 mg/dL and patient is unable to swallow or has mental status changes. albuterol 2021- No 2.5mg 2.5 mg, Uni vers (PROVENTIL) 09-22 Inhalation i ty of 2.5 mg /3 07:45: 07:15 , ONCE, 1 [place] mL (0.083 00 :00 dose, On Medica l %) [facility] nebulizer 09/22/21 at solution 0145, CT 2.5 mg furosemide 2021- No 40mg 40 mg, IV U nivers (LASIX) 09-22 Push, ity of injection 07:30: 06:32 ONCE, 1 [place] 40 mg 00 :00 dose, On Medical [facility] 09/22/21 at 0130, CT methylpredn No 125mg 125 mg, U nivers isolone [...] 00 :00 dose, On Medica l %) [facility] nebulizer 09/22/21 at solution 0130, CT 2.5 mg aspirin 2021- No 1{tbl} Take 1 Unive rs (ASPIR-81 2-28 02-28 tablet by ity of ORAL) 05:21: 00:00 [...] Medical pen Branch injector LORazepam 2020-07 Yes [id number] .5mg Take 1 Un alexia 0.5 mg 2-02 tablet by ity of tablet 00:00: mouth 3 [place] 00 (three) Medical times [place] daily as needed for Nausea and Vomiting (N/V). LORazepam 2020-07 Yes [id number] .5mg Take 1 Un alexia 0.5 mg 2-02 tablet by ity of tablet 00:00: mouth 3 [place] 00 (three) Medical times [place] daily as needed for Nausea and Vomiting (N/V). LORazepam 2020-07 No [id number] .5mg Take 1 U nivers 0.5 mg 2-02 03-01 tablet by ity of tablet 00:00: 00:00 mouth 3 [place] 00 :00 (three) Medical times [place] daily as needed for Nausea and Vomiting [...] nch nebulizer Wheezing. solution nystatin 2018-07 Yes [id number] Apply to Un alexia 100,000 1-06 area(s) 2 ity of unit/gram 00:00: (two) [place] cream 00 times Medical daily. Branch nystatin 2018-07 Yes [id number] Apply to Un alexia 100,000 1-06 area(s) 2 ity of unit/gram 00:00: (two) [place] cream 00 times Medical daily. Branch nystatin 2018-07- No [id number] Apply to U nivers 100,000 1-06 03-01 [...] mg 0-28 QD ity of tablet 00:00: [facility] Branch rosuvastati 2018-07 Yes TK 1 T PO U nivers n 10 mg 0-28 QD ity of tablet 00:00: Medical Branch rosuvastati 2018-07 Yes TK 1 T PO U nivers n 10 mg 0-28 QD ity of tablet 00:00: [place] [facility] rosuvastati 2019- Yes TK 1 T PO U nivers n 10 mg 0-28 QD ity of tablet 00:00: [place] [facility] rosuvastati 2018- Yes TK 1 T PO U nivers n 10 mg 0-28 QD ity of tablet 00:00: [address] rosuvastati 2018-07 Yes TK 1 T PO U nivers n 10 mg 0-28 QD ity of tablet 00:00: [place] [facility] rosuvastati 2018-07 Yes TK 1 T PO U nivers n 10 mg 0-28 QD ity of tablet 00:00: [address] rosuvastati 2018-07 Yes TK 1 T PO U nivers n 10 mg 0-28 QD ity of tablet 00:00: [address] rosuvastati 2018-07 Yes TK 1 T PO U nivers n 10 mg 0-28 QD ity of tablet 00:00: [address] rosuvastati 2018-07 Yes TK 1 T PO U nivers n 10 mg 0-28 QD ity of tablet 00:00: [place] [facility] rosuvastati 2018- Yes TK 1 T PO U nivers n 10 mg 0-28 QD ity of tablet 00:00: [address] rosuvastati 2018- Yes TK 1 T PO U nivers n 10 mg 0-28 QD ity of tablet 00:00: [address] rosuvastati 2018-07 Yes TK 1 T PO U nivers n 10 mg 0-28 QD ity of tablet 00:00: [place] [facility] rosuvastati 2018- Yes TK 1 T PO U nivers n 10 mg 0-28 QD ity of tablet 00:00: [address] rosuvastati 2018- Yes TK 1 T PO U nivers n 10 mg 0-28 QD ity of tablet 00:00: [address] rosuvastati 2018- Yes TK 1 T PO U nivers n 10 mg 0-28 QD ity of tablet 00:00: [address] rosuvastati 2018-07 Yes TK 1 T PO U nivers n 10 mg 0-28 QD ity of tablet 00:00: [address] rosuvastati 2018- Yes TK 1 T PO U nivers n 10 mg 0-28 QD ity of tablet 00:00: Medical Branch rosuvastati 2018-07 Yes TK 1 T PO U nivers n 10 mg 0-28 QD ity of tablet 00:00: [place] [facility] rosuvastati 2018-07 Yes TK 1 T PO U nivers n 10 mg 0-28 QD ity of tablet 00:00: [facility] rosuvastati 2018-07 Yes TK 1 T PO U nivers n 10 mg 0-28 QD ity of tablet 00:00: [place] [facility] rosuvastati 2018-07 Yes TK 1 T PO U nivers n 10 mg 0-28 QD ity of tablet 00:00: [place] [facility] rosuvastati 2018-07 Yes TK 1 T PO U nivers n 10 mg 0-28 QD ity of tablet 00:00: [place] [facility] rosuvastati 2018-07 Yes TK 1 T PO U nivers n 10 mg 0-28 QD ity of tablet 00:00: [place] Medical Branch ofloxacin 2018-07 Yes INSTIL 2 [...] mg 0-09 ity of tablet 00:00: [place] [facility] furosemide 2018-07 Yes Univers 20 mg 0-09 ity of tablet 00:00: [place] Medical Branch furosemide 2018-07 Yes TK 1 T PO Un alexai 40 mg 0-09 QAM ity of tablet 00:00: [place] Medical Branch furosemide 2018-07 Yes TK 1 T PO Un alexia 40 mg 0-09 QAM ity of tablet 00:00: [place] Medical Branch furosemide 2018-07 Yes Univers 20 mg 0-09 ity of tablet 00:00: [place] 00 Medical Branch furosemide 2018-07 Yes Univers 20 mg 0-09 ity of tablet 00:00: [place] 00 Medical Branch furosemide 2018-07 Yes Univers 20 mg 0-09 ity of tablet 00:00: [place] Medical Branch furosemide 2018-07 Yes Univers 20 mg 0-09 ity of tablet 00:00: [place] Medical [facility] furosemide 2018-07 Yes Univers 20 mg 0-09 ity of tablet 00:00: [place] 00 Medical Branch furosemide 2018-07- No Univer [...] Medical mg/1.5 mL) Branch PnIj fluconazole Yes [id number] 100mg Take 1 Univers 100 mg 3-26 tablet by ity of tablet 00:00: mouth [place] 00 daily. Medical Branch fluconazole Yes [id number] 100mg Take 1 Univers 100 mg 3-26 tablet by ity of tablet 00:00: mouth [place] 00 daily. Medical Branch fluconazole Yes [id number] 100mg Take 1 Univers 100 mg 3-26 tablet by ity of tablet 00:00: mouth [place] 00 daily. [facility] Branch fluconazole 2019-0 Yes [id number] 100mg Take 1 Univers 100 mg 3-26 tablet by ity of tablet 00:00: mouth [place] 00 daily. [facility] Branch fluconazole 2019-0 Yes [id number] 100mg Take 1 Univers 100 mg 3-26 tablet by ity of tablet 00:00: mouth [place] 00 daily. [facility] Branch fluconazole 2019-0 Yes [id number] 100mg Take 1 Univers 100 mg 3-26 tablet by ity of tablet 00:00: mouth [place] 00 daily. [facility] Branch fluconazole 2019-0 Yes [id number] 100mg Take 1 Univers 100 mg 3-26 tablet by ity of tablet 00:00: mouth [place] 00 daily. [facility] Branch fluconazole 2019-0 Yes [id number] 100mg Take 1 Univers 100 mg 3-26 tablet by ity of tablet 00:00: mouth [place] 00 daily. [facility] Branch fluconazole 2018- Yes [id number] 100mg Take 1 Univers 100 mg 3-26 tablet by ity of tablet 00:00: mouth [place] 00 daily. [facility] fluconazole 2019-2021- No [id number] 100mg Take 1 Univers 100 mg 3-26 [...] :00 AREA TWICE Medical DAILY Branch Clotrimazol 2017-0 Yes 1mL 1 mL [...] ity of iron- 1 mg 00:00: [place] [facility] Medical Branch paroxetine 2017-0 Yes Univers 40 mg 2-28 ity of tablet 00:00: [place] Medical Branch paroxetine 2017-0 Yes Univers 40 mg 2-28 ity of tablet 00:00: [place] [address] Medical Branch paroxetine 2018-0 Yes Univers 40 mg 2-28 ity of tablet 00:00: [place] [address] Medical Branch paroxetine 2018-0 Yes Univers 40 mg 2-28 ity of tablet 00:00: [place] Medical Branch paroxetine 2018-0 Yes Univers 40 mg 2-28 ity of tablet 00:00: [place] [address] Medical Branch paroxetine 2018-0 Yes Univers 40 mg 2-28 ity of tablet 00:00: [place] [address] Medical Branch paroxetine 2018-0 Yes Univers 40 mg 2-28 ity of tablet 00:00: [place] [address] Medical Branch paroxetine 2018-0 Yes Univers 40 mg 2-28 ity of tablet 00:00: [place] [address] Medical Branch paroxetine 2018-0 Yes Univers 40 mg 2-28 ity of tablet 00:00: [place] Medical Branch paroxetine 2018-0 Yes Univers 40 mg 2-28 ity of tablet 00:00: [place] [address] Medical Branch paroxetine 2018-0 Yes Univers 40 mg 2-28 ity of tablet 00:00: [place] Medical Branch paroxetine 2018-0 Yes Univers 40 mg 2-28 ity of tablet 00:00: [place] [address] Medical Branch paroxetine 2018-0 Yes Univers 40 mg 2-28 ity of tablet 00:00: [place] [address] Medical Branch paroxetine 2018-0 Yes Univers 40 mg 2-28 ity of tablet 00:00: [place] Medical Branch paroxetine 2018-0 Yes Univers 40 mg 2-28 ity of tablet 00:00: [place] [address] Medical Branch paroxetine 2018-0 Yes Univers 40 mg 2-28 ity of tablet 00:00: [place] [address] Medical Branch paroxetine 2018-0 Yes Univers 40 mg 2-28 ity of tablet 00:00: [place] [address] Medical Branch paroxetine 2018-0 Yes Univers 40 mg 2-28 ity of tablet 00:00: [place] [address] Medical Branch paroxetine 2018-0 Yes Univers 40 mg 2-28 ity of tablet 00:00: [place] [address] Medical Branch paroxetine 2018-0 Yes Univers 40 mg 2-28 ity of tablet 00:00: [place] [address] Medical Branch paroxetine 2018-0 Yes Univers 40 mg 2-28 ity of tablet 00:00: [place] [address] Medical Branch paroxetine 2018-0 Yes Univers 40 mg 2-28 ity of tablet 00:00: [place] [address] Medical Branch paroxetine 2018-0 Yes Univers 40 mg 2-28 ity of tablet 00:00: [place] [address] Medical Branch paroxetine 2018-0 Yes Univers 40 mg 2-28 ity of tablet 00:00: [place] [address] Medical Branch paroxetine 2018-0 Yes Univers 40 mg 2-28 ity of tablet 00:00: [place] [address] Medical Branch paroxetine 2018-0 Yes Univers 40 mg 2-28 ity of tablet 00:00: [address] Branch paroxetine 2018-0 Yes Univers 40 mg 2-28 ity of tablet 00:00: [place] [address] Medical Branch LEVEMIR 2018-0 Yes INJECT 5 [...] as solution 00 :00 times Medical daily. [place] ranitidine Yes TK 1 T PO Un alexia 300 mg 4-18 BID ity of tablet 00:00: [place] [facility] ranitidine Yes TK 1 T PO Un alexia 300 mg 4-18 BID ity of tablet 00:00: [facility] ranitidine Yes TK 1 T PO Un alexia 300 mg 4-18 BID ity of tablet 00:00: [facility] ranitidine Yes TK 1 T PO Un alexia 300 mg 4-18 BID ity of tablet 00:00: [facility] ranitidine Yes TK 1 T PO Un alexia 300 mg 4-18 BID ity of tablet 00:00: [place] 00 Medical Branch ranitidine [id number] Yes TK 1 T PO Un alexia 300 mg 4-18 BID ity of tablet 00:00: [place] 00 Medical Branch ranitidine 2017-0 Yes TK 1 T PO Un alexia 300 mg 4-18 BID ity of tablet 00:00: [place] [facility] ranitidine [id number] Yes TK 1 T PO Un alexia 300 mg 4-18 BID ity of tablet 00:00: [place] Medical Branch ranitidine 2017-0 Yes TK 1 T PO Un alexia 300 mg 4-18 BID ity of tablet 00:00: [place] Medical Branch ranitidine 0 Yes TK 1 T PO Un alexia 300 mg 4-18 BID ity of tablet 00:00: [place] Medical Branch ranitidine 2016-0 Yes TK 1 T PO Un alexia 300 mg 4-18 BID ity of tablet 00:00: [place] Medical Branch ranitidine 0 Yes TK 1 T PO Un alexia 300 mg 4-18 BID ity of tablet 00:00: [place] Medical Branch ranitidine 2016-0 Yes TK 1 T PO Un alexia 300 mg 4-18 BID ity of tablet 00:00: [place] 00 Medical Branch ranitidine 2017-0 2022- No [...] [place] capsule 00 bedtime. Medical Branch pregabalin 2022- No 300mg Take 1 Cap Univers (LYRICA) 6-13 -16 by mouth ity of 300 mg 00:00: 00:00 at [place] capsule 00 :00 bedtime. Medical Branch Immunizations Ordered Filled Immunization Date Status Comments [facility] e Immunization Name Name Pneumococcal 2017-06-08 Completed University o f Polysaccharide, 00:00:00 [place] Med ical PPSV23 (PNEUMOVAX) Branch Influenza Virus 2017-06-08 Completed Universit y of Vaccine Quad IM 3+ 00:00:00 [facility] Pneumococcal 2017-06-08 Completed University o f Polysaccharide, 00:00:00 [place] Med ical PPSV23 (PNEUMOVAX) Branch Influenza Virus 2017-06-08 Completed Universit y of Vaccine Quad IM 3+ 00:00:00 [facility] Pneumococcal 2017-06-08 Completed University o f Polysaccharide, 00:00:00 [place] Med ical PPSV23 (PNEUMOVAX) Branch Influenza Virus 2017-06-08 Completed Universit y of Vaccine Quad IM 3+ 00:00:00 [facility] Pneumococcal 2017-06-08 Completed University o f Polysaccharide, 00:00:00 [place] Med ical PPSV23 (PNEUMOVAX) Branch Influenza Virus 2017-06-08 Completed Universit y of Vaccine Quad IM 3+ 00:00:00 [facility] Pneumococcal 2017-06-08 Completed University o f Polysaccharide, 00:00:00 [place] Med ical PPSV23 (PNEUMOVAX) Branch Influenza Virus 2017-06-08 Completed Universit y of Vaccine Quad IM 3+ 00:00:00 [facility] Pneumococcal 2017-06-08 Completed [facility] f Polysaccharide, 00:00:00 [place] [facility] PPSV23 (PNEUMOVAX) Branch Influenza Virus 2017-06-08 Completed [facility]it y of Vaccine Quad IM 3+ 00:00:00 [facility] Pneumococcal 2017-06-08 Completed [facility] o f Polysaccharide, 00:00:00 [place] [facility] PPSV23 (PNEUMOVAX) Branch Influenza Virus 2017-06-08 Completed [facility]it y of Vaccine Quad IM 3+ 00:00:00 [facility] Pneumococcal 2017-06-08 Completed [facility] o f Polysaccharide, 00:00:00 [place] [facility] PPSV23 (PNEUMOVAX) Branch Influenza Virus 2017-06-08 Completed [facility]it y of Vaccine Quad IM 3+ 00:00:00 [facility] Pneumococcal 2017-06-08 Completed [facility] o f Polysaccharide, 00:00:00 [place] [facility] PPSV23 (PNEUMOVAX) Branch Influenza Virus 2017-06-08 Completed [facility]it y of Vaccine Quad IM 3+ 00:00:00 [facility] Pneumococcal 2017-06-08 Completed [facility] o f Polysaccharide, 00:00:00 [place] [facility] PPSV23 (PNEUMOVAX) Branch Influenza Virus 2017-06-08 Completed [facility]it y of Vaccine Quad IM 3+ 00:00:00 [facility] Pneumococcal 2017-06-08 Completed [facility] o f Polysaccharide, 00:00:00 [place] [facility] PPSV23 (PNEUMOVAX) Branch Influenza Virus 2017-06-08 Completed [facility]it [facility] of Vaccine Quad IM 3+ 00:00:00 [facility] Pneumococcal 2017-06-08 Completed [facility] o f Polysaccharide, 00:00:00 [place] [facility] PPSV23 (PNEUMOVAX) Branch Influenza Virus 2017-06-08 Completed [facility]it y of Vaccine Quad IM 3+ 00:00:00 [facility] Pneumococcal 2017-06-08 Completed [facility] o f Polysaccharide, 00:00:00 [place] [facility] PPSV23 (PNEUMOVAX) Branch Influenza Virus 2017-06-08 Completed [facility]it [facility] of Vaccine Quad IM 3+ 00:00:00 [facility] Pneumococcal 2017-06-08 Completed [facility] o f Polysaccharide, 00:00:00 [place] [facility] PPSV23 (PNEUMOVAX) Branch Influenza Virus 2017-06-08 Completed [facility] of Vaccine Quad IM 3+ 00:00:00 [facility] Pneumococcal 2017-06-08 Completed [facility] o f Polysaccharide, 00:00:00 [place] [facility] PPSV23 (PNEUMOVAX) Branch Influenza Virus 2017-06-08 Completed [facility]it [facility] of Vaccine Quad IM 3+ 00:00:00 [facility] Pneumococcal 2017-06-08 Completed [facility] o f Polysaccharide, 00:00:00 [place] [facility] PPSV23 (PNEUMOVAX) Branch Influenza Virus 2017-06-08 Completed [facility]it [facility] of Vaccine Quad IM 3+ 00:00:00 [facility] Pneumococcal 2017-06-08 Completed [facility] o f Polysaccharide, 00:00:00 [place] [facility] PPSV23 (PNEUMOVAX) Branch Influenza Virus 2017-06-08 Completed [facility] of Vaccine Quad IM 3+ 00:00:00 [facility] Pneumococcal 2017-06-08 Completed [facility] o f Polysaccharide, 00:00:00 [place] [facility] PPSV23 (PNEUMOVAX) Branch Influenza Virus 2017-06-08 Completed [facility]it [facility] of Vaccine Quad IM 3+ 00:00:00 [facility] Pneumococcal 2017-06-08 Completed [facility] o f Polysaccharide, 00:00:00 [place] [facility] PPSV23 (PNEUMOVAX) Branch Influenza Virus 2017-06-08 Completed [facility] of Vaccine Quad IM 3+ 00:00:00 [facility] Pneumococcal 2017-06-08 Completed [facility] o f Polysaccharide, 00:00:00 [place] [facility] PPSV23 (PNEUMOVAX) Branch Influenza Virus 2017-06-08 Completed [facility] of Vaccine Quad IM 3+ 00:00:00 [facility] Pneumococcal 2017-06-08 Completed [facility] o f Polysaccharide, 00:00:00 [place] [facility] PPSV23 (PNEUMOVAX) Branch Influenza Virus 2017-06-08 Completed [facility] of Vaccine Quad IM 3+ 00:00:00 [facility] Pneumococcal 2017-06-08 Completed [facility] o f Polysaccharide, 00:00:00 [place] [facility] PPSV23 (PNEUMOVAX) Branch Influenza Virus 2017-06-08 Completed [facility] of Vaccine Quad IM 3+ 00:00:00 [facility] Pneumococcal 2017-06-08 Completed [facility] o f Polysaccharide, 00:00:00 [place] [facility] PPSV23 (PNEUMOVAX) Branch Influenza Virus 2017-06-08 Completed [facility] of Vaccine Quad IM 3+ 00:00:00 [facility] Pneumococcal 2017-06-08 Completed [facility] o f Polysaccharide, 00:00:00 [place] [facility] PPSV23 (PNEUMOVAX) Branch Influenza Virus 2017-06-08 Completed [facility]it [facility] of Vaccine Quad IM 3+ 00:00:00 [facility] Pneumococcal 2017-06-08 Completed [facility] o f Polysaccharide, 00:00:00 [place] [facility] PPSV23 (PNEUMOVAX) Branch Influenza Virus 2017-06-08 Completed [facility] of Vaccine Quad IM 3+ 00:00:00 [facility] Pneumococcal 2017-06-08 Completed [facility] o f Polysaccharide, 00:00:00 [place] [facility] PPSV23 (PNEUMOVAX) Branch Influenza Virus 2017-06-08 Completed [facility] of Vaccine Quad IM 3+ 00:00:00 [facility] Pneumococcal 2017-06-08 Completed [facility] o f Polysaccharide, 00:00:00 [place] [facility] PPSV23 (PNEUMOVAX) Branch Influenza Virus 2017-06-08 Completed [facility]it [facility] of Vaccine Quad IM 3+ 00:00:00 [facility] Influenza Virus 2015-06-20 Completed [facility]it [facility] of Vaccine Quad IM 3+ 00:00:00 [facility] Influenza Virus 2015-06-20 Completed [facility]it [facility] of Vaccine Quad IM 3+ 00:00:00 [facility] Influenza Virus 2015-06-20 Completed [facility]it [facility] of Vaccine Quad IM 3+ 00:00:00 [facility] Influenza Virus 2015-06-20 Completed [facility]it [facility] of Vaccine Quad IM 3+ 00:00:00 [facility] Influenza Virus 2015-06-20 Completed [facility]it [facility] of Vaccine Quad IM 3+ 00:00:00 [facility] Influenza Virus 2015-06-20 Completed [facility]it [facility] of Vaccine Quad IM 3+ 00:00:00 [facility] Influenza Virus 2015-06-20 Completed [facility]it [facility] of Vaccine Quad IM 3+ 00:00:00 [facility] Influenza Virus 2015-06-20 Completed [facility] of Vaccine Quad IM 3+ 00:00:00 [facility] Influenza Virus 2015-06-20 Completed [facility]it [facility] of Vaccine Quad IM 3+ 00:00:00 [facility] Influenza Virus 2015-06-20 Completed [facility]it y of Vaccine Quad IM 3+ 00:00:00 [facility] Influenza Virus 2015-06-20 Completed [facility] of Vaccine Quad IM 3+ 00:00:00 [facility] Influenza Virus 2015-06-20 Completed [facility]it [facility] of Vaccine Quad IM 3+ 00:00:00 [facility] Influenza Virus 2015-06-20 Completed [facility]it [facility] of Vaccine Quad IM 3+ 00:00:00 [facility] Influenza Virus 2015-06-20 Completed [facility] of Vaccine Quad IM 3+ 00:00:00 [facility] Influenza Virus 2015-06-20 Completed [facility]it [facility] of Vaccine Quad IM 3+ 00:00:00 [facility] Influenza Virus 2015-06-20 Completed [facility]it [facility] of Vaccine Quad IM 3+ 00:00:00 [facility] Influenza Virus 2015-06-20 Completed [facility] of Vaccine Quad IM 3+ 00:00:00 [facility] Influenza Virus 2015-06-20 Completed [facility]it [facility] of Vaccine Quad IM 3+ 00:00:00 [facility] Influenza Virus 2015-06-20 Completed [facility] of Vaccine Quad IM 3+ 00:00:00 [facility] Influenza Virus 2015-06-20 Completed [facility] of Vaccine Quad IM 3+ 00:00:00 [facility] Influenza Virus 2015-06-20 Completed [facility]it [facility] of Vaccine Quad IM 3+ 00:00:00 [facility] Influenza Virus 2015-06-20 Completed [facility] of Vaccine Quad IM 3+ 00:00:00 [facility] Influenza Virus 2015-06-20 Completed [facility]it [facility] of Vaccine Quad IM 3+ 00:00:00 [facility] Influenza Virus 2015-06-20 Completed [facility] of Vaccine Quad IM 3+ 00:00:00 [facility] Influenza Virus 2015-06-20 Completed [facility] of Vaccine Quad IM 3+ 00:00:00 [facility] Influenza Virus 2015-06-20 Completed [facility] of Vaccine Quad IM 3+ 00:00:00 [facility] Influenza Virus 2015-06-20 Completed [facility]it [facility] of Vaccine Quad IM 3+ 00:00:00 [facility] Pneumococcal 2014-07-31 Completed [facility] o f Polysaccharide, 00:00:00 [place] [facility] PPSV23 (PNEUMOVAX) Branch Influenza Virus 2014-07-31 Completed [facility]it y of Vaccine Quad IM 3+ 00:00:00 [facility] TDAP 2014-07-31 Completed University of 00:00:00 [facility] Pneumococcal 2014-07-31 Completed [facility] o f Polysaccharide, 00:00:00 [place] [facility] PPSV23 (PNEUMOVAX) Branch Influenza Virus 2014-07-31 Completed [facility]it y of Vaccine Quad IM 3+ 00:00:00 [facility] TDAP 2014-07-31 Completed University of 00:00:00 [facility] Pneumococcal 2014-07-31 Completed [facility] o f Polysaccharide, 00:00:00 [place] [facility] PPSV23 (PNEUMOVAX) Branch Influenza Virus 2014-07-31 Completed [facility]it y of Vaccine Quad IM 3+ 00:00:00 [facility] TDAP 2014-07-31 Completed University of 00:00:00 [facility] Pneumococcal 2014-07-31 Completed [facility] o f Polysaccharide, 00:00:00 [place] [facility] PPSV23 (PNEUMOVAX) Branch Influenza Virus 2014-07-31 Completed [facility]it y of Vaccine Quad IM 3+ 00:00:00 [facility] TDAP 2014-07-31 Completed University of 00:00:00 [facility] Pneumococcal 2014-07-31 Completed [facility] o f Polysaccharide, 00:00:00 [place] [facility] PPSV23 (PNEUMOVAX) Branch Influenza Virus 2014-07-31 Completed [facility]it y of Vaccine Quad IM 3+ 00:00:00 [facility] TDAP 2014-07-31 Completed University of 00:00:00 [facility] Pneumococcal 2014-07-31 Completed [facility] o f Polysaccharide, 00:00:00 [place] [facility] PPSV23 (PNEUMOVAX) Branch Influenza Virus 2014-07-31 Completed [facility]it y of Vaccine Quad IM 3+ 00:00:00 [facility] TDAP 2014-07-31 Completed University of 00:00:00 [facility] Pneumococcal 2014-07-31 Completed [facility] o f Polysaccharide, 00:00:00 [place] [facility] PPSV23 (PNEUMOVAX) Branch Influenza Virus 2014-07-31 Completed [facility]it y of Vaccine Quad IM 3+ 00:00:00 [facility] TDAP 2014-07-31 Completed University of 00:00:00 [facility] Pneumococcal 2014-07-31 Completed [facility] o f Polysaccharide, 00:00:00 [place] [facility] PPSV23 (PNEUMOVAX) Branch Influenza Virus 2014-07-31 Completed [facility]it y of Vaccine Quad IM 3+ 00:00:00 [facility] TDAP 2014-07-31 Completed University of 00:00:00 [facility] Pneumococcal 2014-07-31 Completed [facility] o f Polysaccharide, 00:00:00 [place] [facility] PPSV23 (PNEUMOVAX) Branch Influenza Virus 2014-07-31 Completed [facility]it y of Vaccine Quad IM 3+ 00:00:00 [facility] TDAP 2014-07-31 Completed University of 00:00:00 [facility] Pneumococcal 2014-07-31 Completed [facility] o f Polysaccharide, 00:00:00 [place] [facility] PPSV23 (PNEUMOVAX) Branch Influenza Virus 2014-07-31 Completed [facility]it y of Vaccine Quad IM 3+ 00:00:00 [facility] TDAP 2014-07-31 Completed University of 00:00:00 [facility] Pneumococcal 2014-07-31 Completed [facility] o f Polysaccharide, 00:00:00 [place] [facility] PPSV23 (PNEUMOVAX) Branch Influenza Virus 2014-07-31 Completed [facility]it y of Vaccine Quad IM 3+ 00:00:00 [facility] TDAP 2014-07-31 Completed University of 00:00:00 [facility] Pneumococcal 2014-07-31 Completed [facility] o f Polysaccharide, 00:00:00 [place] [facility] PPSV23 (PNEUMOVAX) Branch Influenza Virus 2014-07-31 Completed [facility]it y of Vaccine Quad IM 3+ 00:00:00 [facility] TDAP 2014-07-31 Completed University of 00:00:00 [facility] Pneumococcal 2014-07-31 Completed [facility] o f Polysaccharide, 00:00:00 [place] [facility] PPSV23 (PNEUMOVAX) Branch Influenza Virus 2014-07-31 Completed [facility]it y of Vaccine Quad IM 3+ 00:00:00 [facility] TDAP 2014-07-31 Completed University of 00:00:00 [facility] Pneumococcal 2014-07-31 Completed [facility] o f Polysaccharide, 00:00:00 [place] [facility] PPSV23 (PNEUMOVAX) Branch Influenza Virus 2014-07-31 Completed [facility]it y of Vaccine Quad IM 3+ 00:00:00 [facility] TDAP 2014-07-31 Completed University of 00:00:00 [facility] Pneumococcal 2014-07-31 Completed [facility] o f Polysaccharide, 00:00:00 [place] [facility] PPSV23 (PNEUMOVAX) Branch Influenza Virus 2014-07-31 Completed [facility]it y of Vaccine Quad IM 3+ 00:00:00 [facility] TDAP 2014-07-31 Completed University of 00:00:00 [facility] Pneumococcal 2014-07-31 Completed [facility] o f Polysaccharide, 00:00:00 [place] [facility] PPSV23 (PNEUMOVAX) Branch Influenza Virus 2014-07-31 Completed [facility]it y of Vaccine Quad IM 3+ 00:00:00 [facility] TDAP 2014-07-31 Completed University of 00:00:00 [facility] Pneumococcal 2014-07-31 Completed [facility] o f Polysaccharide, 00:00:00 [place] [facility] PPSV23 (PNEUMOVAX) Branch Influenza Virus 2014-07-31 Completed [facility]it y of Vaccine Quad IM 3+ 00:00:00 [facility] TDAP 2014-07-31 Completed University of 00:00:00 [facility] Pneumococcal 2014-07-31 Completed [facility] o f Polysaccharide, 00:00:00 [place] [facility] PPSV23 (PNEUMOVAX) Branch Influenza Virus 2014-07-31 Completed [facility]it y of Vaccine Quad IM 3+ 00:00:00 [facility] TDAP 2014-07-31 Completed University of 00:00:00 [facility] Pneumococcal 2014-07-31 Completed [facility] o f Polysaccharide, 00:00:00 [place] [facility] PPSV23 (PNEUMOVAX) Branch Influenza Virus 2014-07-31 Completed [facility]it y of Vaccine Quad IM 3+ 00:00:00 [facility] TDAP 2014-07-31 Completed University of 00:00:00 [facility] Pneumococcal 2014-07-31 Completed [facility] o f Polysaccharide, 00:00:00 [place] [facility] PPSV23 (PNEUMOVAX) Branch Influenza Virus 2014-07-31 Completed [facility]it y of Vaccine Quad IM 3+ 00:00:00 [facility] TDAP 2014-07-31 Completed University of 00:00:00 [facility] Pneumococcal 2014-07-31 Completed [facility] o f Polysaccharide, 00:00:00 [place] [facility] PPSV23 (PNEUMOVAX) Branch Influenza Virus 2014-07-31 Completed [facility]it y of Vaccine Quad IM 3+ 00:00:00 [facility] TDAP 2014-07-31 Completed University of 00:00:00 [facility] Pneumococcal 2014-07-31 Completed [facility] o f Polysaccharide, 00:00:00 [place] [facility] PPSV23 (PNEUMOVAX) Branch Influenza Virus 2014-07-31 Completed [facility]it y of Vaccine Quad IM 3+ 00:00:00 [facility] TDAP 2014-07-31 Completed University of 00:00:00 [facility] Pneumococcal 2014-07-31 Completed [facility] o f Polysaccharide, 00:00:00 [place] [facility] PPSV23 (PNEUMOVAX) Branch Influenza Virus 2014-07-31 Completed [facility]it y of Vaccine Quad IM 3+ 00:00:00 [facility] TDAP 2014-07-31 Completed University of 00:00:00 [facility] Pneumococcal 2014-07-31 Completed [facility] o f Polysaccharide, 00:00:00 [place] [facility] PPSV23 (PNEUMOVAX) Branch Influenza Virus 2014-07-31 Completed [facility]it y of Vaccine Quad IM 3+ 00:00:00 [facility] TDAP 2014-07-31 Completed University of 00:00:00 [facility] Pneumococcal 2014-07-31 Completed [facility] o f Polysaccharide, 00:00:00 [place] [facility] PPSV23 (PNEUMOVAX) Branch Influenza Virus 2014-07-31 Completed [facility]it y of Vaccine Quad IM 3+ 00:00:00 [facility] TDAP 2014-07-31 Completed University of 00:00:00 [facility] Pneumococcal 2014-07-31 Completed University o f Polysaccharide, 00:00:00 [place] [facility] PPSV23 (PNEUMOVAX) Branch Influenza Virus 2014-07-31 Completed Universit y of Vaccine Quad IM 3+ 00:00:00 [facility] Branch TDAP 2014-07-31 Completed University of 00:00:00 [facility] Pneumococcal 2014-07-31 Completed [place] o f Polysaccharide, 00:00:00 [place] [facility] PPSV23 (PNEUMOVAX) Branch Influenza Virus 2014-07-31 Completed Universit y of Vaccine Quad IM 3+ 00:00:00 [facility] TDAP 2014-07-31 Completed University 00:00:00 [facility] Vital Signs Vital Name Observation Time Observation Value Comments Source Heart rate 2022-12-10 19:12:00 88 /min [facility] Respiratory rate 2022-12-10 19:12:00 18 /min [facility] Oxygen saturation in 2022-12-10 19:12:00 100 /min [facility] Arterial blood by [facility] Pulse oximetry Branch Systolic blood 2022-12-10 17:00:00 96 mm[Hg] Univer sity of pressure [facility] Diastolic blood 2022-12-10 17:00:00 85 mm[facility]Hg] [facility] Body temperature 2022-12-10 13:00:00 36.28 Laly [facility] 2022-12-09 13:00:00 95 kg [facility] BMI 2022-12-09 13:00:00 39.57 kg/m2 [facility] Body height 2022-12-07 17:41:00 154.9 cm [facility] HEIGHT 2022-11-25 03:00:00 154.9 cm WEIGHT 2022-11-25 03:00:00 95.3 kg HEIGHT 2022-11-25 03:00:00 154.9 cm WEIGHT 2022-11-25 03:00:00 95.3 kg Systolic blood 2022-09-09 14:30:00 105 mm[Hg] Univer sity of pressure [facility] Diastolic blood 2022-09-09 14:30:00 78 mm[Hg] Unive rsity of pressure [facility] Heart rate 2022-09-09 14:30:00 95 /min [facility] Body temperature 2022-09-09 14:30:00 37.22 Laly [facility] ers[facility] Respiratory rate 2022-09-09 14:30:00 12 /min [facility] Oxygen saturation in 2022-09-09 14:30:00 93 /min [facility] of Arterial blood by [facility] Pulse oximetry Branch Body height 2022-09-09 12:41:00 152.4 cm [facility] Body weight 2022-09-09 12:41:00 98.431 kg [facility] BMI 2022-09-09 12:41:00 42.38 kg/m2 [facility] Systolic blood 2022-08-10 22:08:00 129 mm[Hg] Univer sity of pressure [facility] Diastolic blood 2022-08-10 22:08:00 76 mm[Hg] Unive rsity of pressure [facility] Heart rate 2022-08-10 22:08:00 107 /min [facility] Body temperature 2022-08-10 22:08:00 37.17 Laly [facility] Respiratory rate 2022-08-10 22:08:00 15 /min [facility] Oxygen saturation in 2022-08-10 22:08:00 96 /min University of Arterial blood by [employer] [facility] Pulse oximetry Branch Body weight 2022-08-10 09:00:00 98.5 kg [facility] BMI 2022-08-10 09:00:00 41.03 kg/m2 [facility] Body height 2022-08-05 06:47:00 154.9 cm [facility] Systolic blood 2022-06-05 05:00:00 96 mm[Hg] Univer sity of pressure [facility] Diastolic blood 2022-06-05 05:00:00 66 mm[Hg] Unive rsity of pressure [facility] Heart rate 2022-06-05 05:00:00 82 /min [facility] Respiratory rate 2022-06-05 05:00:00 13 /min [facility] Oxygen saturation in 2022-06-05 05:00:00 97 /min [facility] of Arterial blood by [facility] Pulse oximetry Branch Body temperature 2022-06-05 02:51:00 36.33 Laly [facility] Body height 2022-06-05 02:51:00 154.9 cm [facility] Body weight 2022-06-05 02:51:00 97.523 kg [facility] BMI 2022-06-05 02:51:00 40.62 kg/m2 [facility] Systolic blood 2022-05-13 07:00:00 127 mm[Hg] Univer sity of pressure [facility] Diastolic blood 2022-05-13 07:00:00 84 mm[Hg] Unive rsity of pressure [facility] Heart rate 2022-05-13 07:00:00 90 /min [facility] Respiratory rate 2022-05-13 07:00:00 14 /min [facility] Oxygen saturation in 2022-05-13 07:00:00 97 /min [facility] of Arterial blood by [facility] Pulse oximetry Branch Body temperature 2022-05-13 04:01:00 36.56 Laly [facility] Body height 2022-05-13 04:01:00 154.9 cm [facility] Body weight 2022-05-13 04:01:00 95.255 kg [facility] BMI 2022-05-13 04:01:00 39.68 kg/m2 [facility] Systolic blood 2022-05-02 07:00:00 147 mm[Hg] Univer sity of pressure [facility] Diastolic blood 2022-05-02 07:00:00 90 mm[Hg] Unive rsity of pressure [facility] Heart rate 2022-05-02 07:00:00 86 /min [facility] Respiratory rate 2022-05-02 07:00:00 17 /min [facility] Oxygen saturation in 2022-05-02 07:00:00 98 /min [facility] of Arterial blood by [employer] [facility] Pulse oximetry Branch Body temperature 2022-05-02 05:21:00 36.44 Laly [facility] Body height 2022-05-02 05:21:00 154.9 cm [facility] Body weight 2022-05-02 05:21:00 95.255 kg [facility] BMI 2022-05-02 05:21:00 39.68 kg/m2 [facility] Systolic blood 2022-04-29 05:36:00 133 mm[Hg] Univer sity of pressure [facility] Diastolic blood 2022-04-29 05:36:00 85 mm[Hg] Unive rsity of pressure [facility] Heart rate 2022-04-29 05:36:00 89 /min [facility] Respiratory rate 2022-04-29 05:36:00 22 /min [facility] Oxygen saturation in 2022-04-29 05:36:00 100 /min [facility] of Arterial blood by [employer] [facility] Pulse oximetry Branch Body temperature 2022-04-29 02:44:00 36.56 Laly [facility] Body height 2022-04-29 02:44:00 154.9 cm [facility] Body weight 2022-04-29 02:44:00 95.255 kg [facility] BMI 2022-04-29 02:44:00 39.68 kg/m2 [facility] Systolic blood 2022-02-27 21:00:00 116 mm[Hg] Univer sity of pressure [facility] Diastolic blood 2022-02-27 21:00:00 74 mm[Hg] Unive rsity of pressure [facility] Heart rate 2022-02-27 21:00:00 89 /min [facility] Body temperature 2022-02-27 21:00:00 36.61 Laly [facility] Respiratory rate 2022-02-27 21:00:00 18 /min [facility] Oxygen saturation in 2022-02-27 21:00:00 98 /min University of Arterial blood by [facility] Pulse oximetry Branch Body weight 2022-02-23 13:00:00 92.987 kg [facility] BMI 2022-02-23 13:00:00 38.73 kg/m2 [facility] Body height 2022-02-21 01:00:00 154.9 cm [facility] Body temperature 2022-02-17 21:50:00 37.17 Laly [facility] Heart rate 2022-02-17 21:42:00 77 /min [facility] Respiratory rate 2022-02-17 21:42:00 18 /min [facility] Oxygen saturation in 2022-02-17 21:42:00 94 /min [facility] of Arterial blood by [facility] Pulse oximetry Branch Systolic blood 2022-02-17 10:00:00 122 mm[Hg] Univer sity of pressure [facility] Diastolic blood 2022-02-17 10:00:00 69 mm[Hg] Unive rsity of pressure [facility] Body weight 2022-02-17 01:00:00 107 kg [facility] BMI 2022-02-17 01:00:00 44.57 kg/m2 [facility] Body height 2022-02-12 09:00:00 154.9 cm [facility] Systolic blood 2022-01-31 16:32:00 136 mm[Hg] Univer sity of pressure [facility] Diastolic blood 2022-01-31 16:32:00 80 mm[Hg] Unive rsity of pressure [facility] Heart rate 2022-01-31 16:32:00 84 /min [facility] Body temperature 2022-01-31 16:32:00 37 Laly [facility] Respiratory rate 2022-01-31 16:32:00 10 /min [facility] Oxygen saturation in 2022-01-31 16:32:00 98 /min [facility] Arterial blood by [facility] Pulse oximetry Branch Body weight 2022-01-30 09:00:00 103.964 kg [facility] BMI 2022-01-30 09:00:00 43.31 kg/m2 [facility] Body height 2022-01-28 04:12:00 154.9 cm [facility] Systolic blood 2022-01-13 03:00:00 134 mm[Hg] [facility] Diastolic blood 2022-01-13 03:00:00 94 mm[Hg] [facility] Heart rate 2022-01-13 03:00:00 119 /min [facility] Respiratory rate 2022-01-13 03:00:00 18 /min [facility] Oxygen saturation in 2022-01-13 03:00:00 91 /min [facility] [place] [employer] michel Pulse oximetry Branch Body temperature 2022-01-12 22:31:00 36.94 Laly [facility] Body height 2022-01-12 22:31:00 154.9 cm [facility] Body weight 2022-01-12 22:31:00 104.327 kg [facility] BMI 2022-01-12 22:31:00 43.46 kg/m2 [facility] Systolic blood 2022-01-12 17:00:00 135 mm[Hg] [facility] Diastolic blood 2022-01-12 17:00:00 65 mm[Hg] [facility] Heart rate 2022-01-12 17:00:00 108 /min [facility] Respiratory rate 2022-01-12 17:00:00 20 /min [facility] Oxygen saturation in 2022-01-12 17:00:00 92 /min [facility] [place] [employer] [facility]hel Pulse oximetry Branch Body temperature 2022-01-12 09:00:00 36.22 Laly [facility] Body weight 2022-01-03 17:00:00 104.32 kg [facility] BMI 2022-01-03 17:00:00 43.46 kg/m2 [facility] Body height 2022-01-02 09:20:00 154.9 cm [facility] Systolic blood 2021-12-09 05:00:00 123 mm[Hg] [facility] Diastolic blood 2021-12-09 05:00:00 66 mm[Hg] [facility] Heart rate 2021-12-09 05:00:00 96 /min [facility] Respiratory rate 2021-12-09 05:00:00 13 /min [facility] Oxygen saturation in 2021-12-09 05:00:00 96 /min [facility] [place] [employer] [facility] Pulse oximetry Branch Body temperature 2021-12-09 03:35:00 35.94 Laly [facility] Body height 2021-12-09 03:35:00 154.9 cm [facility] Body weight 2021-12-09 03:35:00 104.327 kg [facility] BMI 2021-12-09 03:35:00 43.46 kg/m2 [facility] Systolic blood 2021-09-23 20:00:00 141 mm[Hg] [facility] Diastolic blood 2021-09-23 20:00:00 83 mm[Hg] [facility] Heart rate 2021-09-23 20:00:00 98 /min [facility] Respiratory rate 2021-09-23 20:00:00 16 /min [facility] Oxygen saturation in 2021-09-23 20:00:00 97 /min [facility] [place] [employer] [facility] Pulse oximetry Branch Body temperature 2021-09-23 18:00:00 36.61 Laly [facility] Body height 2021-09-22 21:50:00 154.9 cm [facility] Body weight 2021-09-22 21:50:00 104.3 kg [facility] BMI 2021-09-22 21:50:00 43.45 kg/m2 [facility] Systolic blood 2022-11-26 12:00:00 132 mm[Hg] [facility] Diastolic blood 2022-11-26 12:00:00 78 mm[Hg] [facility] 2022-11-26 12:00:00 88 /min [facility] Respiratory rate 2022-11-26 12:00:00 12 /min [facility] Oxygen saturation in 2022-11-26 12:00:00 98 /min [facility] Arterial blood by Medical Ce nter Pulse oximetry Body temperature 2022-11-26 08:00:00 36.61 Laly [facility] Body height 2022-11-25 03:00:00 154.9 cm [facility] Body weight 2022-11-25 03:00:00 95.3 kg [facility] BMI 2022-11-25 03:00:00 39.70 kg/m2 [facility] Procedures Procedure Date / Time Performing Clinician Source Performed EXTERNAL PROVIDER RECORDS 2022-12-22 05:01:00 Doctor Unassigned, [facility] POCT GLUCOSE (AUTOMATED) 2022-12-10 16:54:00 Lv Liz [facility] POCT GLUCOSE (AUTOMATED) 2022-12-10 12:46:00 Lv Liz [facility] MAGNESIUM 2022-12-10 09:38:00 [facility] 2022-12-10 09:38:00 Raad Sanford [facility] (NA, K, CL, CO2, GLUCOSE, Medica l Branch BUN, CREATININE, CA) CBC WITHOUT DIFF 2022-12-10 09:38:00 Juvenal Raad [facility] POCT GLUCOSE (AUTOMATED) 2022-12-10 09:37:00 Lv Liz [facility] POCT GLUCOSE (AUTOMATED) 2022-12-10 05:23:00 Lv Liz [facility] XR CHEST 1 VW 2022-12-10 02:23:00 Duane Ireland [facility] POCT GLUCOSE (AUTOMATED) 2022-12-10 01:20:00 Lv Liz [facility] POCT GLUCOSE (AUTOMATED) 2022-12-09 21:01:00 Lv Liz [facility] HB ECG ROUTINE & RHYTHM 2022-12-09 17:31:01 Raina Tyson [facility] STRIP [facility] POCT GLUCOSE (AUTOMATED) 2022-12-09 17:08:00 Lv Liz [facility] POCT GLUCOSE (AUTOMATED) 2022-12-09 12:57:00 Lv Liz [facility] BASIC METABOLIC PANEL 2022-12-09 09:12:00 Juvenal Raad [facility] (NA, K, CL, CO2, GLUCOSE, Medica l Branch BUN, CREATININE, CA) CBC WITHOUT DIFF 2022-12-09 09:12:00 Juvenal [facility] AC PANEL 20 + LACTIC ACID 2022-12-09 09:03:00 Lisa Fritz [facility] POCT GLUCOSE (AUTOMATED) 2022-12-09 04:30:00 Lv Liz [facility] AC PANEL 20 + LACTIC ACID 2022-12-09 03:45:00 Vivek Meneses [facility] POCT GLUCOSE (AUTOMATED) 2022-12-09 00:36:00 Lv Liz [facility] POCT GLUCOSE (AUTOMATED) 2022-12-08 22:07:00 Lv Liz [facility] POCT GLUCOSE (AUTOMATED) 2022-12-08 12:57:00 Lv Liz [facility] CBC WITHOUT DIFF 2022-12-08 11:48:00 Juvenal [facility] LIPASE 2022-12-08 09:46:00 Carmelita Smith [facility] MAGNESIUM 2022-12-08 09:46:00 Vivek Meneses [facility] BASIC METABOLIC PANEL 2022-12-08 09:46:00 Vivek Meneses [facility] (NA, K, CL, CO2, GLUCOSE, Medica l Branch BUN, CREATININE, CA) POCT GLUCOSE (AUTOMATED) 2022-12-08 08:58:00 Lv Liz [facility] POCT GLUCOSE (AUTOMATED) 2022-12-08 04:43:00 Lv Liz [facility] POCT GLUCOSE (AUTOMATED) 2022-12-08 00:56:00 Lv Liz [facility] POCT GLUCOSE (AUTOMATED) 2022-12-07 21:50:00 Lv Liz [facility] CBC WITHOUT DIFF 2022-12-07 21:31:00 Raad Sanford [facility] GLYCOSYLATED HEMOGLOBIN 2022-12-07 21:31:00 Raad Sanford [facility] (A1C) [facility] XR CHEST 1 VW 2022-12-07 19:38:00 Raad Sanford [place] [facility] MRSA / MSSA SCREEN BY 2022-12-07 18:01:00 Raad Sanford [facility] ACUTE CARE ARTERIAL BLOOD 2022-12-07 18:00:00 Raad Sanford [facility] POCT-GLUCOSE METER 2022-11-26 10:10:00 Charlie [facility] XR CHEST 1 VIEW PORTABLE 2022-11-26 09:14:00 Charlie [facility] Medical / BEDSIDE Center CBC W/PLT COUNT & AUTO 2022-11-26 06:01:00 Charlie [facility] DIFFERENTIAL [place] COMPREHENSIVE METABOLIC 2022-11-26 06:01:00 Charlie [facility] PANEL Center MAGNESIUM 2022-11-26 06:01:00 Charlie [facility] CBC W/PLT COUNT & AUTO 2022-11-26 06:01:00 Charlie [facility] POCT-GLUCOSE METER 2022-11-25 23:20:00 Charlie [facility] CBC W/PLT COUNT & AUTO 2022-11-25 16:53:00 Charlie [facility] DIFFERENTIAL [place] COMPREHENSIVE METABOLIC 2022-11-25 16:53:00 Charlie [facility] PANEL Center MAGNESIUM 2022-11-25 16:53:00 Charlie [facility] HEMOGLOBIN A1C 2022-11-25 16:53:00 Charlie [facility] TSH/FREE T4 IF INDICATED 2022-11-25 16:53:00 Charlie [facility] B-TYPE NATRIURETIC FACTOR 2022-11-25 16:53:00 Charlie [facility] (BNP) Center T4, FREE 2022-11-25 16:53:00 Charlie [facility] CBC W/PLT COUNT & AUTO 2022-11-25 16:53:00 Charlie [facility] POCT-GLUCOSE METER 2022-11-25 16:32:00 Lira [facility] POCT-GLUCOSE METER 2022-11-25 09:08:00 Charlie [facility] EKG-SCANNED 2022-11-25 00:00:00 Srinivas [facility] Scanning [place] TROPONIN I 2022-09-09 13:20:00 Joslyn Ruelas [facility] COMP. METABOLIC PANEL 2022-09-09 13:20:00 Joslyn Ruelas [facility] ([id number]) [facility] CBC WITH DIFF 2022-09-09 13:20:00 Joslyn Ruelas [facility] RAPID INFLUENZA A/B 2022-09-09 13:20:00 Joslyn Ruelas [facility] N-TERMINAL PRO-BNP 2022-09-09 13:20:00 Joslyn Ruelas [facility] COVID-19 (ID NOW RAPID 2022-09-09 13:20:00 Joslyn Ruelas [facility] TESTING) [facility] CONSENT/REFUSAL FOR 2022-09-09 12:19:48 Doctor Unassigned, [facility] DIAGNOSIS AND TREATMENT [facility] POCT GLUCOSE (AUTOMATED) 2022-08-10 17:15:00 Jonas Hernandez [facility] POCT GLUCOSE (AUTOMATED) 2022-08-10 13:45:00 Jonas Hernandez [facility] POCT GLUCOSE (AUTOMATED) 2022-08-10 09:17:00 Jonas Hernandez [facility] POCT GLUCOSE (AUTOMATED) 2022-08-10 06:01:00 Jonas Hernandez [facility] POCT GLUCOSE (AUTOMATED) 2022-08-10 02:09:00 Jonas Hernandez Uni [facility] POCT GLUCOSE (AUTOMATED) 2022-08-09 22:26:00 Jonas Hernandez versity of [facility] XR CHEST 1 VW 2022-08-09 19:47:37 Gogo [facility] XR CHEST 1 VW 2022-08-09 14:07:17 Carlos [facility] POCT GLUCOSE (AUTOMATED) 2022-08-09 13:17:00 Jonas Hernandez versity of [facility] PHOSPHORUS 2022-08-09 11:24:00 Carlos [facility] MAGNESIUM 2022-08-09 11:24:00 [facility] BASIC METABOLIC PANEL 2022-08-09 11:24:00 Corey Gonzalez [facility] (NA, K, CL, CO2, GLUCOSE, Medica l Branch BUN, CREATININE, CA) CBC WITH DIFF 2022-08-09 11:24:00 Carlos [facility] POCT GLUCOSE (AUTOMATED) 2022-08-09 11:22:00 Jonas Hernandez [facility] POCT GLUCOSE (AUTOMATED) 2022-08-09 06:16:00 Jonas Hernandez Uni [facility] POCT GLUCOSE (AUTOMATED) 2022-08-09 02:24:00 Jonas Hernandez Uni [facility] POCT GLUCOSE (AUTOMATED) 2022-08-08 22:31:00 Jonas Hernandez [facility] POCT GLUCOSE (AUTOMATED) 2022-08-08 17:30:00 Jonas Hernandez [facility] POCT GLUCOSE (AUTOMATED) 2022-08-08 13:20:00 Jonas Hernandez [facility] POCT GLUCOSE (AUTOMATED) 2022-08-08 09:51:00 Jonas Hernandez Uni [facility] POCT GLUCOSE (AUTOMATED) 2022-08-08 06:10:00 Jonas Hernandez [facility] POCT GLUCOSE (AUTOMATED) 2022-08-08 02:37:00 Jonas Hernandez [facility] POCT GLUCOSE (AUTOMATED) 2022-08-07 22:16:00 Jonas Hernandez [facility] POCT GLUCOSE (AUTOMATED) 2022-08-07 17:26:00 Jonas Hernandez [facility] TRANSTHORACIC ECHO (TTE) 2022-08-07 16:31:00 Stella Ivory [facility] W/ CONTRAST Medical [facility] POCT GLUCOSE (AUTOMATED) 2022-08-07 13:42:00 Jonas Hernandez [facility] PHOSPHORUS 2022-08-07 11:00:00 Corey Gonzalez [facility] MAGNESIUM 2022-08-07 11:00:00 Carlos [facility] BILI UNCONJUGATED/BILI 2022-08-07 11:00:00 Corey Gonzalez [facility] TROPONIN I 2022-08-07 11:00:00 Corey Gonzalez [facility] THYROID STIMULATING 2022-08-07 11:00:[address] [facility] HORMONE [facility] COMP. METABOLIC PANEL 2022-08-07 11:00:00 Jonas Hernandez [facility] ([id number]) [facility] CBC WITH DIFF 2022-08-07 11:00:00 Corey Gonzalez [facility] N-TERMINAL PRO-BNP 2022-08-07 11:00:00 Corey Gonzalez [facility] ACUTE CARE VENOUS BLOOD 2022-08-07 10:59:[address] [facility] POCT GLUCOSE (AUTOMATED) 2022-08-07 10:17:00 Jonas Hernandez [facility] POCT GLUCOSE (AUTOMATED) 2022-08-07 05:38:00 Jonas Hernandez [facility] POCT GLUCOSE (AUTOMATED) 2022-08-07 02:06:00 Mary, Adnan [facility] POCT GLUCOSE (AUTOMATED) 2022-08-06 22:27:00 Jonas Hernandez [facility] POCT GLUCOSE (AUTOMATED) 2022-08-06 17:15:00 Jonas Hernandez [facility] CT THORAX W CONTRAST 2022-08-06 16:53:[address] [facility] CORTISOL AM 2022-08-06 13:33:00 Mary [facility] CBC WITH DIFF 2022-08-06 13:33:00 Mary [facility] LACTIC ACID WHOLE BLOOD 2022-08-06 13:33:[address] [facility] POCT GLUCOSE (AUTOMATED) 2022-08-06 13:27:00 Jonas Hernandez [facility] POCT GLUCOSE (AUTOMATED) 2022-08-06 10:37:00 Jonas Hernandez [facility] PHOSPHORUS 2022-08-06 10:25:00 Mary tianna [facility] CREATINE KINASE 2022-08-06 10:25:00 Mary [facility] MAGNESIUM 2022-08-06 10:25:00 Mary [facility] TROPONIN I 2022-08-06 10:25:00 Mary [facility] COMP. METABOLIC PANEL 2022-08-06 10:25:00 Jonas Hernandez [facility] ([id number]) [facility] ACUTE CARE VENOUS BLOOD 2022-08-06 10:25:00 Jonas Hernandez [facility] N-TERMINAL PRO-BNP 2022-08-06 10:25:00 Jonas Hernandez [facility] POCT GLUCOSE (AUTOMATED) 2022-08-06 06:54:00 Jonas Hernandez [facility] POCT GLUCOSE (AUTOMATED) 2022-08-06 02:30:00 Jonas Hernandez [facility] POCT GLUCOSE (AUTOMATED) 2022-08-05 22:59:00 Jonas Hernandez [facility] TROPONIN I 2022-08-05 22:00:00 Mary tianna [facility] URINALYSIS 2022-08-05 21:45:00 [facility] 2022-08-05 21:45:00 [facility] PO[facility] GLUCOSE (AUTOMATED) 2022-08-05 17:53:00 Jonas Hernandez [facility] POCT GLUCOSE (AUTOMATED) 2022-08-05 13:19:00 Jonas Hernandez [facility] XR CHEST 1 VW 2022-08-05 12:59:00 Mary tianna [facility] LEGIONELLA URINARY 2022-08-05 11:12:00 Jonas Hernandez [facility] ANTIGEN [facility] RESPIRATORY PANEL BY PCR 2022-08-05 11:12:00 Jonas Hernandez [facility] URINE CULTURE 2022-08-05 11:11:00 Mary tianna [facility] SODIUM, URINE RANDOM 2022-08-05 11:11:00 Jonas Hernandez [facility] PNEUMOCOCCAL ANTIGEN 2022-08-05 11:11:00 Jonas Hernandez [facility] PROTEIN CREAT RATIO URINE 2022-08-05 11:11:00 [facility] 2022-08-05 11:10:00 Mary [facility] MRSA / MSSA SCREEN BY 2022-08-05 11:09:00 Jonas Hernandez [facility] PCR, [facility] PHOSPHORUS 2022-08-05 11:08:00 Mary tianna [facility] CREATINE KINASE 2022-08-05 11:08:00 Mary tianna [facility] MAGNESIUM 2022-08-05 11:08:00 Mary [facility] TROPONIN I 2022-08-05 11:08:00 Mary [facility] COMP. METABOLIC PANEL 2022-08-05 11:08:00 Jonas Hernandez [facility] ([id number]) Medical Branch LIPID PANEL ([id number])(TOTAL 2022-08-05 11:08:00 Jonas Hernandez [facility] CHOLESTEROL, [facility] TRIGLYCERIDES, HDL) SEDIMENTATION RATE 2022-08-05 11:08:00 Jonas Hernandez [facility] GLYCOSYLATED HEMOGLOBIN 2022-08-05 11:08:00 Mary tianna [facility] (A1C) Medical Branch URINALYSIS 2022-08-05 11:08:00 Mary [facility] MYCOPLASMA PNEUMONIAE 2022-08-05 11:08:00 Mary tianna [facility] ANTIBODY, IGM [facility] N-TERMINAL PRO-BNP 2022-08-05 11:08:00 Mary tianna [facility] PROCALCITONIN 2022-08-05 11:08:00 Mary tianna [facility] AC PANEL 20 + LACTIC ACID 2022-08-05 10:56:00 Jonas Hernandez [facility] ASSIGNMENT OF BENEFITS 2022-08-05 06:59:31 Doctor Unassigned, [facility] CONSENT/REFUSAL FOR 2022-08-05 06:58:52 Doctor Unassigned, [facility] DIAGNOSIS AND TREATMENT [facility] XR CHEST 1 VW 2022-06-05 04:10:06 Singer [facility] TROPONIN I 2022-06-05 03:21:00 Singer [facility] COMP. METABOLIC PANEL 2022-06-05 03:21:00 Singer [facility] ([id number]) [facility] CBC WITH DIFF 2022-06-05 03:21:00 Singer [facility] RAPID INFLUENZA A/B 2022-06-05 03:21:00 Singer Gen [facility] N-TERMINAL PRO-BNP 2022-06-05 03:21:00 Singer [facility] COVID-19 (ID NOW RAPID 2022-06-05 03:21:00 Gen Acevedo [facility] TESTING) Medical Branch CONSENT/REFUSAL FOR 2022-06-05 02:20:45 [facility] DIAGNOSIS AND TREATMENT [facility] TROPONIN I 2022-05-13 07:08:00 Paula Rowe [facility] CT CHEST PULMONARY 2022-05-13 06:13:34 Paula Rowe [facility] ANGIOGRAM Medical Branch XR CHEST 1 VW 2022-05-13 04:42:45 Paula Rowe [facility] BLOOD CULTURE SCREEN 2022-05-13 04:10:00 Paula Rowe [facility] TROPONIN I 2022-05-13 04:10:00 Paula Rowe [facility] COMP. METABOLIC PANEL 2022-05-13 04:10:00 Paula Rowe [facility] ([id number]) Medical Branch CBC WITH DIFF 2022-05-13 04:10:00 Paula Rowe [facility] PROTHROMBIN TIME / INR 2022-05-13 04:10:00 Paula [facility] ACTIVATED PARTIAL 2022-05-13 04:10:00 Paula Rowe [facility] RAPID INFLUENZA A/B 2022-05-13 04:10:00 Paula Rowe [facility] N-TERMINAL PRO-BNP 2022-05-13 04:10:00 Paula Rowe [facility] COVID-19 (ID NOW RAPID 2022-05-13 04:10:00 Paula Rowe [facility] TESTING) Medical Branch AC PANEL 21 + LACTIC ACID 2022-05-02 06:08:00 [facility] 2022-05-02 05:52:00 Sanjay Henry [facility] URINALYSIS 2022-05-02 05:44:00 Sanjay Henry [facility] MAGNESIUM 2022-05-02 05:43:00 Sanjay Henry [facility] TROPONIN I 2022-05-02 05:43:00 Sanjay Henry [facility] COMP. METABOLIC PANEL 2022-05-02 05:43:00 Sanjay Henry [facility] ([id number]) Medical Branch CBC WITH DIFF 2022-05-02 05:43:00 Sanjay Henry Janel [facility] N-TERMINAL PRO-BNP 2022-05-02 05:43:00 Sanjay Henry Janel [facility] CONSENT/REFUSAL FOR 2022-05-02 05:16:55 Doctor Unasssheila [facility] DIAGNOSIS AND TREATMENT [facility] COVID-19 (ID NOW RAPID 2022-04-29 03:43:00 Paula Rowe [facility] TESTING) [facility] CT ABDOMEN PELVIS WO 2022-04-29 03:38:06 [facility] CONTRAST [facility] XR CHEST 1 VW 2022-04-29 03:23:24 Paula Rowe [facility] TROPONIN I 2022-04-29 02:49:00 Paula Rowe [facility] COMP. METABOLIC PANEL 2022-04-29 02:49:00 Paula Rowe [facility] ([id number]) Medical Branch CBC WITH DIFF 2022-04-29 02:49:00 Paula Rowe [facility] PROTHROMBIN TIME / INR 2022-04-29 02:49:00 Paula [facility] ACTIVATED PARTIAL 2022-04-29 02:49:00 Paula Rowe [facility] THRMPLAS SHREYA [facility] N-TERMINAL PRO-BNP 2022-04-29 02:49:00 Paula Rowe [facility] POCT GLUCOSE (AUTOMATED) 2022-02-27 20:30:00 Kevin Lebron [facility] POCT GLUCOSE (AUTOMATED) 2022-02-27 16:16:00 Kevin Lebron [facility] POCT GLUCOSE (AUTOMATED) 2022-02-27 12:27:00 Kevin Lebron [facility] POCT GLUCOSE (AUTOMATED) 2022-02-26 21:42:00 Kevin Lebron [facility] POCT GLUCOSE (AUTOMATED) 2022-02-26 17:49:00 Yasmine Kevin Rinaldi [facility] POCT GLUCOSE (AUTOMATED) 2022-02-26 14:27:00 Kevin Lebron [facility] MAGNESIUM 2022-02-26 08:50:00 Artie Rodriguez [facility] BASIC METABOLIC PANEL 2022-02-26 08:50:00 Artie Rodriguez [facility] (NA, K, CL, CO2, GLUCOSE, Medica l Branch BUN, CREATININE, CA) POCT GLUCOSE (AUTOMATED) 2022-02-26 01:26:00 Yasmine Kevin Rinaldi [facility] POCT GLUCOSE (AUTOMATED) 2022-02-25 20:40:00 Kevin Lebron [facility] POCT GLUCOSE (AUTOMATED) 2022-02-25 16:39:00 Kevin Lebron [facility] ACUTE CARE ARTERIAL BLOOD 2022-02-25 14:04:00 [facility] ([facility]OMATED) 2022-02-25 12:51:00 Yasmine Kevin Rinaldi [facility] PHOSPHORUS 2022-02-25 11:01:00 Lam [facility] MAGNESIUM 2022-02-25 11:01:[facility]OL[facility]EL 2022-02-25 11:01:00 Lam [facility] (NA, K, CL, CO2, GLUCOSE, Medica l Branch BUN, CREATININE, CA) POCT GLUCOSE (AUTOMATED) 2022-02-25 01:24:00 Kevin Lebron [facility] POCT GLUCOSE (AUTOMATED) 2022-02-24 20:49:00 Kevin Lebron [facility] POCT GLUCOSE (AUTOMATED) 2022-02-24 16:52:00 Kevin Lebron [facility] ACUTE CARE ARTERIAL BLOOD 2022-02-24 16:42:00 [facility] PO[facility] GLUCOSE (AUTOMATED) 2022-02-24 13:24:00 Kevin Lebron [facility] TROPONIN I 2022-02-24 12:34:00 [facility] METABOLIC PANEL 2022-02-24 12:34:00 Lam [facility] (NA, K, CL, CO2, GLUCOSE, Medica l Branch BUN, CREATININE, CA) HB ECG ROUTINE & RHYTHM 2022-02-24 12:23:17 [facility] WHOLE BLOOD 2022-02-24 03:13:[address] [facility] POCT GLUCOSE (AUTOMATED) 2022-02-24 01:20:00 Kevin Lebron [facility] XR KUB 2022-02-24 00:31:00 Dana [facility] POCT GLUCOSE (AUTOMATED) 2022-02-23 22:34:00 Kevin Lebron [facility] POCT GLUCOSE (AUTOMATED) 2022-02-23 21:46:00 Kevin Lebron [facility] XR CHEST 1 VW 2022-02-23 19:26:00 Dana [facility] AC PANEL 20 + LACTIC ACID 2022-02-23 18:02:00 Isma Cortez [facility] POCT GLUCOSE (AUTOMATED) 2022-02-23 17:19:00 Kevin Lebron [facility] POCT GLUCOSE (AUTOMATED) 2022-02-23 13:22:00 Kevin Lebron [facility] POCT GLUCOSE (AUTOMATED) 2022-02-22 21:55:00 Kevin Lebron [facility] POCT GLUCOSE (AUTOMATED) 2022-02-22 18:22:00 Kevin Lebron [facility] CBC WITH DIFF 2022-02-22 11:32:00 Joshua [facility] MAGNESIUM 2022-02-22 11:31:00 Joshua [facility] BASIC METABOLIC PANEL 2022-02-22 11:31:00 Joshua [facility] (NA, K, CL, CO2, GLUCOSE, Medica l Branch BUN, CREATININE, CA) XR CHEST 1 VW 2022-02-22 09:34:00 Joshua [facility] POCT GLUCOSE (AUTOMATED) 2022-02-22 01:20:00 Kevin Lebron [facility] POCT GLUCOSE (AUTOMATED) 2022-02-21 21:53:00 Yasmine [facility] CBC WITHOUT DIFF 2022-02-21 15:46:00 [facility] ([facility]OMATED) 2022-02-21 14:26:00 Kevin Lebron [facility] URINALYSIS 2022-02-21 08:27:00 Joshua [facility] URINE CULTURE 2022-02-21 08:27:00 Joshua [facility] MAGNESIUM 2022-02-21 08:06:00 Joshua [facility] BASIC METABOLIC PANEL 2022-02-21 08:06:00 Joshua [facility] (NA, K, CL, CO2, GLUCOSE, Medica l Branch BUN, CREATININE, CA) CBC WITH DIFF 2022-02-21 08:06:00 Joshua [facility] MRSA / MSSA SCREEN BY 2022-02-21 03:21:00 Chase [facility] POCT GLUCOSE (AUTOMATED) 2022-02-21 02:31:00 Kevin Lebron [facility] BLOOD CULTURE SCREEN 2022-02-21 01:58:00 [facility] 2022-02-21 01:49:00 Joshua [facility] XR CHEST 1 VW 2022-02-20 23:44:00 Albert Brown [facility] ACUTE CARE ARTERIAL BLOOD 2022-02-20 23:23:00 Chase Ny [facility] XR CHEST 1 VW 2022-02-20 20:39:00 Paula Rowe [facility] TROPONIN I 2022-02-20 20:17:00 Rowe, Paula [facility] COMP. METABOLIC PANEL 2022-02-20 20:17:00 Paula Rowe [facility] ([id number]) Medical Branch CBC WITH DIFF 2022-02-20 20:17:00 Paula Rowe [facility] PROTHROMBIN TIME / INR 2022-02-20 20:17:00 Paula Rowe [facility] ACTIVATED PARTIAL 2022-02-20 20:17:00 [facility] THRM[facility] SHREYA [facility] N-TERMINAL PRO-BNP 2022-02-20 20:17:00 Paula Rowe [facility] COVID-19 (ID NOW RAPID 2022-02-20 20:07:00 Paula Rowe [facility] TESTING) Medical Branch LAB ONLY COVID 2022-02-20 20:07:00 Paula Rowe [facility] INTERPRETATION [facility] HB ECG ROUTINE & RHYTHM 2022-02-20 20:06:49 Paula Rowe [facility] CONSENT/REFUSAL FOR 2022-02-20 19:58:43 Doctor Unassigned, [facility] DIAGNOSIS AND TREATMENT [facility] 2022-02-20 05:01:00 Doctor Unazeke, [facility] DOCUMENTS [facility] HOSPITAL ADMISSION 2022-02-20 05:01:00 Doctor Unazeke, [facility] POCT GLUCOSE (AUTOMATED) 2022-02-17 21:44:00 Yvonne Pantojaigi U [facility] POCT GLUCOSE (AUTOMATED) 2022-02-17 17:09:00 Yvonne Pantojaigi U [facility] POCT GLUCOSE (AUTOMATED) 2022-02-17 13:06:00 Valeriano Pantoja [facility] XR CHEST 1 VW 2022-02-17 11:51:08 Nathaniel [facility] MAGNESIUM 2022-02-17 09:13:00 Nathaniel [facility] BASIC METABOLIC PANEL 2022-02-17 09:13:00 Nathaniel [facility] (NA, K, CL, CO2, GLUCOSE, Medica l Branch BUN, CREATININE, CA) CBC WITH DIFF 2022-02-17 09:13:00 Kayla Armstrong o f [facility] ACUTE CARE ARTERIAL BLOOD 2022-02-17 09:02:00 [facility] POCT GLUCOSE (AUTOMATED) 2022-02-17 00:49:00 Terminella, Valeriano [facility] XR CHEST 1 VW 2022-02-16 23:15:00 MurdockRoberto [facility] POCT GLUCOSE (AUTOMATED) 2022-02-16 21:46:00 Terminella, Valeriano [facility] POCT GLUCOSE (AUTOMATED) 2022-02-16 16:59:00 Terminella, Valeriano [facility] POCT GLUCOSE (AUTOMATED) 2022-02-16 13:05:00 Terminella, Valeriano [facility] POCT GLUCOSE (AUTOMATED) 2022-02-16 08:32:00 Terminella, Valeriano [facility] POCT GLUCOSE (AUTOMATED) 2022-02-16 04:29:00 Terminella, Valeriano [facility] POCT GLUCOSE (AUTOMATED) 2022-02-16 00:39:00 Terminella, Valeriano [facility] POCT GLUCOSE (AUTOMATED) 2022-02-15 21:14:00 Terminella, Valeriano [facility] POCT GLUCOSE (AUTOMATED) 2022-02-15 16:58:00 Terminella, Valeriano [facility] POCT GLUCOSE (AUTOMATED) 2022-02-15 12:45:00 Terminella, Valeriano [facility] POCT GLUCOSE (AUTOMATED) 2022-02-15 08:02:00 Terminella, Valeriano [facility] MAGNESIUM 2022-02-15 07:56:00 Roberto Murdock [facility] COMP. METABOLIC PANEL 2022-02-15 07:56:00 [id number] CBC WITHOUT DIFF 2022-02-15 07:56:00 Roberto Murdock [facility] POCT GLUCOSE (AUTOMATED) 2022-02-15 04:15:00 Terminella, Valeriano [facility] POCT GLUCOSE (AUTOMATED) 2022-02-15 00:48:00 Terminella, Valeriano [facility] POCT GLUCOSE (AUTOMATED) 2022-02-14 21:22:00 Terminella, Valeriano [facility] POCT GLUCOSE (AUTOMATED) 2022-02-14 19:37:00 Terminella, Valeriano [facility] POCT GLUCOSE (AUTOMATED) 2022-02-14 16:28:00 Terminella, Valeriano [facility] POCT GLUCOSE (AUTOMATED) 2022-02-14 14:17:00 Terminella, Valeriano [facility] XR CHEST 1 VW 2022-02-14 11:42:00 Kayla Armstrong [facility] MAGNESIUM 2022-02-14 09:56:00 Nathaniel [facility] COMP. METABOLIC PANEL 2022-02-14 09:56:00 Kayla Armstrong [facility] ([id number]) [facility] CBC WITH DIFF 2022-02-14 09:56:00 Nathaniel [facility] ACUTE CARE ARTERIAL BLOOD 2022-02-14 08:33:00 Kayla Armstrong [facility] POCT GLUCOSE (AUTOMATED) 2022-02-14 08:17:00 Terminella, Valeriano [facility] POCT GLUCOSE (AUTOMATED) 2022-02-14 04:25:00 Terminella, Valeriano [facility] EKG-12 LEAD 2022-02-14 04:11:18 Doctor Unassigned, [facility] POCT GLUCOSE (AUTOMATED) 2022-02-14 00:55:00 Terminella, Valeriano [facility] POCT GLUCOSE (AUTOMATED) 2022-02-13 22:29:00 Terminella, Valeriano [facility] POCT GLUCOSE (AUTOMATED) 2022-02-13 17:29:00 Terminella, [facility] ([facility]ATED) 2022-02-13 15:52:00 [facility]ella, [facility] BLOOD 2022-02-13 14:22:00 [facility] G[facility] POCT GLUCOSE (AUTOMATED) 2022-02-13 14:07:00 Terminella, [facility] DUPLEX VENOUS LEGS 2022-02-13 14:00:43 MurdockAzulRoberto [facility] BILATERAL - BY VASCULAR [facility] LAB POCT GLUCOSE (AUTOMATED) 2022-02-13 12:45:00 Terminella, Val[facility]iano [facility] PO[facility]SE (AUTOMATED) 2022-02-13 11:43:00 Terminella, [facility] MAGNESIUM 2022-02-13 10:33:00 Scarlett, [facility] BASIC METABOLIC PANEL 2022-02-13 10:33:00 Murdock, Roberto Un [facility] (NA, K, CL, CO2, GLUCOSE, Medica l Branch BUN, CREATININE, CA) CBC WITH DIFF 2022-02-13 10:33:00 January Pantojai [facility] POCT GLUCOSE (AUTOMATED) 2022-02-13 09:42:00 Terminella, Val[facility]iano [facility] PO[facility] GLU[facility]SE (AUTOMATED) 2022-02-13 08:46:00 Terminella, Val[facility] PO[facility] GLUCOSE (AUTOMATED) 2022-02-13 07:59:00 Terminella, [facility] PO[facility]SE (AUTOMATED) 2022-02-13 06:56:00 Terminella, Val[facility]iano [facility] PO[facility] GLUCOSE (AUTOMATED) 2022-02-13 05:57:00 Terminella, Val[facility] PO[facility] GLUCOSE (AUTOMATED) 2022-02-13 03:36:00 Terminella, Val[facility]iano [facility] BASIC METABOLIC PANEL 2022-02-13 03:30:00 [facility]Roberto [facility] (NA, K, CL, CO2, GLUCOSE, Medica l Branch BUN, CREATININE, CA) POCT GLUCOSE (AUTOMATED) 2022-02-13 02:46:00 Terminella, Valeriano [facility] PO[facility] GLUCOSE (AUTOMATED) 2022-02-13 01:37:00 Terminella, Val[facility]iano [facility] PO[facility] GLUCOSE (AUTOMATED) 2022-02-13 00:34:00 Terminella, Val[facility] PO[facility] GLUCOSE (AUTOMATED) 2022-02-12 23:25:00 Terminella, Valeriano [facility] POCT GLUCOSE (AUTOMATED) 2022-02-12 22:20:00 Terminella, Val[facility] PO[facility]UCOSE (AUTOMATED) 2022-02-12 21:02:00 Terminella, Val[facility]iano [facility] BASIC METABOLIC PANEL 2022-02-12 20:39:00 MurdockKraig baltazardro [facility] [place] (NA, K, CL, CO2, GLUCOSE, Medica l Branch BUN, CREATININE, CA) POCT GLUCOSE (AUTOMATED) 2022-02-12 20:02:00 Terminella, Valeriano [facility] POCT GLUCOSE (AUTOMATED) 2022-02-12 19:06:00 Terminella, Val[facility] PO[facility] GLUCOSE (AUTOMATED) 2022-02-12 18:09:00 Terminella, Val[facility]iano [facility] PO[facility] GLUCOSE (AUTOMATED) 2022-02-12 17:17:00 Terminella, Valeriano [facility] SPUTUM CULTURE 2022-02-12 16:29:00 TerminJanuary alstoni [facility] BASIC METABOLIC PANEL 2022-02-12 16:16:00 Kayla Armstrong [facility] (NA, K, CL, CO2, GLUCOSE, Medica l Branch BUN, CREATININE, CA) POCT GLUCOSE (AUTOMATED) 2022-02-12 16:11:00 Terminella, Valeriano [facility] POCT GLUCOSE (AUTOMATED) 2022-02-12 14:14:00 [facility]OM[facility]) 2022-02-12 13:17:00 TerminellaJanuaryi [facility] POCT GLUCOSE (AUTOMATED) 2022-02-12 12:42:00 TerminJanuary [facility] BASIC METABOLIC PANEL 2022-02-12 12:18:00 [facility] (NA, K, CL, CO2, GLUCOSE, Medica l Branch BUN, CREATININE, CA) POCT GLUCOSE (AUTOMATED) 2022-02-12 12:17:00 Termingamaliel [facility] POCT GLUCOSE (AUTOMATED) 2022-02-12 11:15:00 Termingamaliel [facility] POCT GLUCOSE (AUTOMATED) 2022-02-12 10:12:00 TerminJanuary [facility] PO[facility] GLUCOSE (AUTOMATED) 2022-02-12 09:12:00 [facility] MRSA / MSSA SCREEN BY 2022-02-12 08:23:00 [facility] PCR, NARES [facility] AC PANEL 20 + LACTIC ACID 2022-02-12 08:22:00 [facility]OS[facility]US 2022-02-12 08:21:00 [facility] MAGNESIUM 2022-02-12 08:21:00 [facility] OSMOLALITY, SERUM OR 2022-02-12 08:21:00 [facility] PLASMA [facility] BETA HYDROXY-BUTYRATE 2022-02-12 08:21:00 [facility] BASIC METABOLIC PANEL 2022-02-12 08:21:00 [facility] (NA, K, CL, CO2, GLUCOSE, Medica l Branch BUN, CREATININE, CA) CBC WITH DIFF 2022-02-12 08:21:00 Valeriano Pantoja [facility] GLYCOSYLATED HEMOGLOBIN 2022-02-12 08:21:00 Valeriano Pantoja [facility] (A1C) [facility] POCT GLUCOSE (AUTOMATED) 2022-02-12 04:53:00 Paula Rowe [facility] URINE DRUG (IMMUNOASSAY) 2022-02-12 04:24:00 Paula Rowe [facility] SCREEN W/O REFLEX URINALYSIS 2022-02-12 04:23:00 Paula Rowe [facility] POCT GLUCOSE (AUTOMATED) 2022-02-12 04:12:00 Paula Rowe [facility] CT CHEST PULMONARY 2022-02-12 02:41:40 Paula Rowe [facility] ANGIOGRAM [facility] CT ABDOMEN PELVIS W 2022-02-12 02:39:[address] [facility] CONTRAST [facility] CT HEAD WO CONTRAST 2022-02-12 02:39:36 Paula Rowe [facility] XR CHEST 1 VW 2022-02-12 02:08:38 Paula Rowe [facility] AC PANEL 20 + LACTIC ACID 2022-02-12 01:59:00 Paula Rowe [facility] AMMONIA, PLASMA 2022-02-12 01:18:00 Paula Rowe [facility] BLOOD CULTURE SCREEN 2022-02-12 01:16:00 Paula Rowe [facility] COVID-19 (ID NOW RAPID 2022-02-12 01:16:00 Paula Rowe [facility] TESTING) [facility] LAB ONLY COVID 2022-02-12 01:16:00 Paula Rowe [facility] INTERPRETATION [facility] BLOOD CULTURE SCREEN 2022-02-12 01:12:00 Paula Rowe [facility] TROPONIN I 2022-02-12 01:12:00 Paula Rowe [facility] FREE T4 2022-02-12 01:12:00 Paula Rwoe [facility] THYROID STIMULATING 2022-02-12 01:12:[address] [facility] HORMONE [facility] COMP. METABOLIC PANEL 2022-02-12 01:12:00 Paula Rowe [facility] ([id number]) Medical Branch ETHANOL 2022-02-12 01:12:00 Paula Rowe [facility] CBC WITH DIFF 2022-02-12 01:12:00 Paula Rowe [facility] PROTHROMBIN TIME / INR 2022-02-12 01:12:00 Paula [facility]e [facility] ACTIVATED PARTIAL 2022-02-12 01:12:00 [facility] THRMPLAS SHREYA [facility] N-TERMINAL PRO-BNP 2022-02-12 01:12:00 Paula Rowe [facility] EKG-12 LEAD 2022-02-12 01:06:16 Doctor Unassigned, [facility] POCT GLUCOSE (AUTOMATED) 2022-02-12 00:57:00 Paula Rowe [facility] ASSIGNMENT OF BENEFITS 2022-02-12 00:53:44 Doctor Unassigned, [facility] CONSENT/REFUSAL FOR 2022-02-12 00:53:30 Doctor Unasssheila, [facility] DIAGNOSIS AND TREATMENT [facility] EMERGENCY DEPARTMENT 2022-02-11 05:01:00 Doctor Unasssheila, [facility] DOCUMENTS [facility] POCT GLUCOSE (AUTOMATED) 2022-01-31 16:09:00 Jonas Hernandez [facility] POCT GLUCOSE (AUTOMATED) 2022-01-31 12:37:00 Jonas Hernandez [facility] PHOSPHORUS 2022-01-31 09:02:00 Luz Maria [facility] MAGNESIUM 2022-01-31 09:02:00 Luz Maria [facility] BASIC METABOLIC PANEL 2022-01-31 09:02:00 Luz Maria [facility] (NA, K, CL, CO2, GLUCOSE, Medica l Branch BUN, CREATININE, CA) ACUTE CARE VENOUS BLOOD 2022-01-31 09:02:00 [facility] N-TERMINAL PRO-BNP 2022-01-31 09:02:[address] [facility] POCT GLUCOSE (AUTOMATED) 2022-01-30 21:20:00 Jonas Hernandez [facility] POCT GLUCOSE (AUTOMATED) 2022-01-30 16:58:00 Jonas Hernandez [facility] POCT GLUCOSE (AUTOMATED) 2022-01-30 13:58:00 Jonas Hernandez [facility] POCT GLUCOSE (AUTOMATED) 2022-01-30 13:11:00 Jonas Hernandez [facility] COMP. METABOLIC PANEL 2022-01-30 09:22:00 Jonas Hernandez [facility] ([id number]) [facility] CBC WITH DIFF 2022-01-30 09:22:00 Luz Maria [facility] N-TERMINAL PRO-BNP 2022-01-30 09:22:00 Jonas Hernandez [facility] ACUTE CARE VENOUS BLOOD 2022-01-30 09:21:00 Jonas Hernandez [facility] POCT GLUCOSE (AUTOMATED) 2022-01-30 03:01:00 Jonas Hernandez [facility] POCT GLUCOSE (AUTOMATED) 2022-01-29 21:03:00 Jonas Hernandez [facility] POCT GLUCOSE (AUTOMATED) 2022-01-29 16:05:00 Jonas Hernandez [facility] POCT GLUCOSE (AUTOMATED) 2022-01-29 15:13:00 Jonas Hernandez [facility] SPUTUM CULTURE 2022-01-29 13:06:00 Luz Maria [facility] POCT GLUCOSE (AUTOMATED) 2022-01-29 12:46:00 Jonas Hernandez [facility] PHOSPHORUS 2022-01-29 09:33:00 Luz Maria [facility] MAGNESIUM 2022-01-29 09:33:00 Mary tianna [facility] COMP. METABOLIC PANEL 2022-01-29 09:33:00 Jonas Hernandez [facility] ([id number]) Medical Branch CBC WITH DIFF 2022-01-29 09:33:00 Luz Maria [facility] N-TERMINAL PRO-BNP 2022-01-29 09:33:00 Jonas Hernandez [facility] ACUTE CARE VENOUS BLOOD 2022-01-29 09:32:00 Jonas Hernandez [facility] GAS [facility] POCT GLUCOSE (AUTOMATED) 2022-01-29 02:58:00 Jonas Hernandez [facility] POCT GLUCOSE (AUTOMATED) 2022-01-29 01:35:00 Jonas Hernandez [facility] POCT GLUCOSE (AUTOMATED) 2022-01-28 21:20:00 Jonas Hernandez [facility] XR CHEST 1 VW 2022-01-28 18:54:18 Luz Maria [facility] PROTEIN CREAT RATIO URINE 2022-01-28 16:54:00 Dilan Coffey [facility] URIC ACID 2022-01-28 16:49:00 Dilan Coffey [facility] TROPONIN I 2022-01-28 16:49:00 Jonas Hernandez [facility] TRANSTHORACIC ECHO (TTE) 2022-01-28 15:37:00 Jonas Hernandez [facility] W/ CONTRAST Medical [facility] DUPLEX VENOUS LEGS 2022-01-28 14:42:22 Jonas Hernandez [facility] BILATERAL - BY VASCULAR Medical Branch LAB POCT GLUCOSE (AUTOMATED) 2022-01-28 13:57:00 Jonas Hernandez [facility] POCT GLUCOSE (AUTOMATED) 2022-01-28 12:58:00 Jonas Hernandez [facility] TROPONIN I 2022-01-28 11:46:[address] [facility] IRON PANEL 2022-01-28 11:46:00 Jonas Hernandez [facility] SEDIMENTATION RATE 2022-01-28 11:46:00 Mary, [facility] N-TERMINAL PRO-BNP 2022-01-28 11:46:[address] [facility] PHOSPHORUS 2022-01-28 11:45:00 Mary [facility] CREATINE KINASE 2022-01-28 11:45:00 Mary [facility] URIC ACID 2022-01-28 11:45:00 Mary [facility] MAGNESIUM 2022-01-28 11:45:00 Mary [facility] FERRITIN SERUM 2022-01-28 11:45:00 Mary [facility] VITAMIN B12, LEVEL 2022-01-28 11:45:00 Mary [facility] TROPONIN I 2022-01-28 11:45:00 Mary [facility] THYROID STIMULATING 2022-01-28 11:45:[address] [facility] HORMONE [facility] COMP. METABOLIC PANEL 2022-01-28 11:45:00 Jonas Hernandez [facility] ([id number]) [facility] LIPID PANEL ([id number])(TOTAL 2022-01-28 11:45:00 Jonas Hernandez [facility] CHOLESTEROL, [facility] TRIGLYCERIDES, HDL) ACUTE CARE VENOUS BLOOD 2022-01-28 11:45:00 Jonas Hernandez [facility] GAS [facility] N-TERMINAL PRO-BNP 2022-01-28 11:45:00 Mary tianna [facility] VITAMIN D, 25-OH 2022-01-28 11:45:00 Mary [facility] PROCALCITONIN 2022-01-28 11:45:00 Mary [facility] OSMOLALITY URINE 2022-01-28 08:55:00 Mary [facility] URINALYSIS 2022-01-28 08:55:00 Mary [facility] URINE CULTURE 2022-01-28 08:55:00 Mary [facility] UREA NITROGEN, URINE 2022-01-28 08:55:00 Jonas Hernandez [facility] Medical Branch SODIUM, URINE RANDOM 2022-01-28 08:55:00 Mary [facility] PROTEIN CREAT RATIO URINE 2022-01-28 08:55:00 [facility] 2022-01-28 02:23:00 Paula Rowe [facility] TROPONIN I 2022-01-28 02:09:00 Paula Rowe [facility] COMP. METABOLIC PANEL 2022-01-28 02:09:00 Paula Rowe [facility] ([id number]) Medical Branch CBC WITH DIFF 2022-01-28 02:09:00 Paula Rowe [facility] GLYCOSYLATED HEMOGLOBIN 2022-01-28 02:09:00 Mary [facility] (A1C) [facility] PROTHROMBIN TIME / INR 2022-01-28 02:09:00 Paula Rowe [facility] [place] ACTIVATED PARTIAL 2022-01-28 02:09:00 [facility] THRMPLAS SHREYA [facility] N-TERMINAL PRO-BNP 2022-01-28 02:09:00 Paula Rowe [facility] [place] COVID-19 (ID NOW RAPID 2022-01-28 02:09:00 Paula Rowe [facility] TESTING) Medical Branch LAB ONLY COVID 2022-01-28 02:09:00 Paula Rowe [facility] INTERPRETATION [facility] HB ECG ROUTINE & RHYTHM 2022-01-28 01:47:33 Paula Rowe [facility] STRIP Medical Branch NOTICE OF PRIVACY 2022-01-28 01:38:34 [facility] CONSENT/REFUSAL FOR 2022-01-28 01:37:59 Doctor Unasssheila, [facility] DIAGNOSIS AND TREATMENT [facility] COMP. METABOLIC PANEL 2022-01-12 23:24:00 Joslyn Ruelas [facility] ([id number]) [facility] [place] CBC WITH DIFF 2022-01-12 23:24:00 Joslyn Ruelas [facility] XR CHEST 1 VW 2022-01-12 23:20:00 Joslyn Ruelas [facility] AC PANEL 21 + LACTIC ACID 2022-01-12 23:14:00 Joslyn Ruelas [facility] POCT GLUCOSE (AUTOMATED) 2022-01-12 17:48:00 [place]ou[place], [facility] (AUTOMATED) 2022-01-12 13:22:00 Moulin, [facility] PO[facility] GLU[facility]SE (AUTOMATED) 2022-01-12 05:51:00 Moulin, [facility] PO[facility] GLUCOSE (AUTOMATED) 2022-01-11 23:02:00 Moulin, [facility] POCT GLUCOSE (AUTOMATED) 2022-01-11 17:20:00 Moulin, [facility] POCT GLUCOSE (AUTOMATED) 2022-01-11 13:08:00 Moulin, Cory [facility] POCT GLUCOSE (AUTOMATED) 2022-01-11 11:35:00 Moulin, Cory [facility] MAGNESIUM 2022-01-11 10:46:00 Artie [facility] BASIC METABOLIC PANEL 2022-01-11 10:46:00 Dawood Alva [facility] (NA, K, CL, CO2, GLUCOSE, Medica l Branch BUN, CREATININE, CA) CBC WITH DIFF 2022-01-11 10:46:00 Artie Dawood [facility] POCT GLUCOSE (AUTOMATED) 2022-01-11 04:13:00 Moulin, [facility] PO[facility] GLUCOSE (AUTOMATED) 2022-01-10 22:36:00 Moulin, [facility] POCT GLUCOSE (AUTOMATED) 2022-01-10 16:44:00 Moulin, [facility] POCT GLUCOSE (AUTOMATED) 2022-01-10 13:02:00 Moulin, [facility] POCT GLUCOSE (AUTOMATED) 2022-01-10 10:44:00 Moulin, [facility] MAGNESIUM 2022-01-10 07:19:00 [facility] 2022-01-10 07:19:00 Cam [facility] (NA, K, CL, CO2, GLUCOSE, Medica l Branch BUN, CREATININE, CA) CBC WITH DIFF 2022-01-10 07:19:00 Cam [facility] POCT GLUCOSE (AUTOMATED) 2022-01-10 04:48:00 Moulin, [facility] PO[facility] GLUCOSE (AUTOMATED) 2022-01-09 17:23:00 Moulin, Cory [facility] vers[facility] POCT GLUCOSE (AUTOMATED) 2022-01-09 12:46:00 Moulin, Cory [facility] BASIC METABOLIC PANEL 2022-01-09 10:50:00 Artie [facility] (NA, K, CL, CO2, GLUCOSE, Medica l Branch BUN, CREATININE, CA) CBC WITH DIFF 2022-01-09 10:50:00 Artie [facility] POCT GLUCOSE (AUTOMATED) 2022-01-09 10:42:00 Moulin, [facility] POCT GLUCOSE (AUTOMATED) 2022-01-09 04:21:00 Moulin, Cory [facility] versity [facility] POCT GLUCOSE (AUTOMATED) 2022-01-08 23:17:00 Moulin, Cory Uni versity [facility] POCT GLUCOSE (AUTOMATED) 2022-01-08 18:14:00 Moulin, Cory Uni versity [facility] POCT GLUCOSE (AUTOMATED) 2022-01-08 13:34:00 Moulin, Cory Uni versity [facility] POCT GLUCOSE (AUTOMATED) 2022-01-08 10:57:00 Moulin, Cory [facility]OL[facility] PANEL 2022-01-08 10:48:00 Artie [facility] (NA, K, CL, CO2, GLUCOSE, Medica l Branch BUN, CREATININE, CA) CBC WITH DIFF 2022-01-08 10:48:00 Artie [facility] POCT GLUCOSE (AUTOMATED) 2022-01-08 05:43:00 Moulin, Cory Uni [facility] POCT GLUCOSE (AUTOMATED) 2022-01-07 21:25:00 Moulin, Cory Rinaldi [facility] POCT GLUCOSE (AUTOMATED) 2022-01-07 16:34:00 Moulin, Cory [facility] ABG+COOX+NA+K+GLU+CA2+ 2022-01-07 15:40:00 Abu Shahla [facility] POCT GLUCOSE (AUTOMATED) 2022-01-07 13:07:00 Moulin, Cory Nimco [facility] BASIC METABOLIC PANEL 2022-01-07 07:14:00 [facility] (NA, K, CL, CO2, GLUCOSE, Medica l Branch BUN, CREATININE, CA) CBC WITH DIFF 2022-01-07 07:14:00 Artie [facility] POCT GLUCOSE (AUTOMATED) 2022-01-07 05:53:00 Moulin, Cory [facility] POCT GLUCOSE (AUTOMATED) 2022-01-06 23:35:00 Moulin, Cory [facility] POCT GLUCOSE (AUTOMATED) 2022-01-06 22:16:00 Moulin, Cory [facility] XR CHEST 1 VW 2022-01-06 21:37:00 Abu Shahla Stack [facility] POCT GLUCOSE (AUTOMATED) 2022-01-06 17:02:00 Moulin, Cory [facility] POCT GLUCOSE (AUTOMATED) 2022-01-06 13:41:00 MoulinCory Nimco [facility] PHOSPHORUS 2022-01-06 09:21:00 AhDawood zuleta [facility] MAGNESIUM 2022-01-06 09:21:00 Ahmerlyn [facility] BASIC METABOLIC PANEL 2022-01-06 09:21:00 Dawood Alva [facility] (NA, K, CL, CO2, GLUCOSE, Medica l Branch BUN, CREATININE, CA) CBC WITH DIFF 2022-01-06 09:21:00 Artie [facility] POCT GLUCOSE (AUTOMATED) 2022-01-05 20:44:00 Moulin, Cory [facility] XR ABDOMEN 1 VW 2022-01-05 17:55:00 AbShahla Fernandez [facility] POCT GLUCOSE (AUTOMATED) 2022-01-05 16:54:00 Moulin, Cory [facility] POCT GLUCOSE (AUTOMATED) 2022-01-05 13:09:00 MoulinCory [facility] PHOSPHORUS 2022-01-05 09:06:00 Moulin [facility] MAGNESIUM 2022-01-05 09:06:00 Moulin [facility] BASIC METABOLIC PANEL 2022-01-05 09:06:00 Jaye [facility] (NA, K, CL, CO2, GLUCOSE, Medica l Branch BUN, CREATININE, CA) CBC WITH DIFF 2022-01-05 09:06:00 Monaveed [facility] POCT GLUCOSE (AUTOMATED) 2022-01-05 05:07:00 Moulin [facility] POCT GLUCOSE (AUTOMATED) 2022-01-04 22:10:00 Moulin [facility] POCT GLUCOSE (AUTOMATED) 2022-01-04 17:14:00 Moulin [facility] POCT GLUCOSE (AUTOMATED) 2022-01-04 11:15:00 Monaveed [facility] PHOSPHORUS 2022-01-04 10:42:00 Jenifer [facility] MAGNESIUM 2022-01-04 10:42:00 Jenifer [facility] BASIC METABOLIC PANEL 2022-01-04 10:42:00 Jenifer [facility] (NA, K, CL, CO2, GLUCOSE, Medica l Branch BUN, CREATININE, CA) VANCOMYCIN TROUGH 2022-01-04 10:42:00 Moulin [facility] CBC WITH DIFF 2022-01-04 10:42:00 Jenifer [facility] CT ABDOMEN PELVIS W 2022-01-04 09:03:00 Shahla Andrade [facility] POCT GLUCOSE (AUTOMATED) 2022-01-04 06:25:00 Moulin, Cory [facility] POCT GLUCOSE (AUTOMATED) 2022-01-03 21:21:00 Moulin, Cory [facility] XR CHEST 1 VW 2022-01-03 20:48:16 Abu Shahla Stack [facility] POCT GLUCOSE (AUTOMATED) 2022-01-03 16:50:00 Moulin, Cory [facility] POCT GLUCOSE (AUTOMATED) 2022-01-03 12:59:00 Moulin, Cory [facility] POCT GLUCOSE (AUTOMATED) 2022-01-03 10:17:00 Moulin, Cory [facility] AC PANEL 20 + LACTIC ACID 2022-01-03 10:15:00 Moulin, Cory Ramos [facility] MAGNESIUM 2022-01-03 08:54:00 Moulin, Cory [facility] BASIC METABOLIC PANEL 2022-01-03 08:54:00 Moulin, Cory [facility] (NA, K, CL, CO2, GLUCOSE, Medica l Branch BUN, CREATININE, CA) CBC WITH DIFF 2022-01-03 08:54:00 Moulin, Cory [facility] POCT GLUCOSE (AUTOMATED) 2022-01-03 04:48:00 Moulin, Cory [facility] POCT GLUCOSE (AUTOMATED) 2022-01-02 22:15:00 Monaveed, Cory [facility] SPUTUM CULTURE 2022-01-02 19:39:00 Abu Phillip [facility] XR KUB 2022-01-02 18:17:54 Abu Phillip [facility] XR KUB 2022-01-02 17:07:05 Abu Phillip [facility] POCT GLUCOSE (AUTOMATED) 2022-01-02 16:26:00 Monaveed, Cory [facility] CT HEAD WO CONTRAST 2022-01-02 15:49:23 Shahla Andrade [facility] XR CHEST 1 VW 2022-01-02 13:45:16 Abu Shahla Stack [facility] AC PANEL 20 + LACTIC ACID 2022-01-02 12:37:00 Abu JoeabbiShahla [facility] POCT GLUCOSE (AUTOMATED) 2022-01-02 12:26:00 MoCory lucio [facility] BASIC METABOLIC PANEL 2022-01-02 10:42:00 Monaveed, Cory [facility] (NA, K, CL, CO2, GLUCOSE, Medica l Branch BUN, CREATININE, CA) BLOOD CULTURE SCREEN 2022-01-02 10:41:00 Moulin, Cory [facility] CBC WITH DIFF 2022-01-02 10:41:00 Monaveed, Cory [facility] GLYCOSYLATED HEMOGLOBIN 2022-01-02 10:41:00 Meño DiazJagdeep goeladio [facility] (A1C) [facility] BLOOD CULTURE SCREEN 2022-01-02 10:40:00 Moulin, Cory [facility] RESPIRATORY CULTURE 2022-01-02 10:40:00 Moulin, Cory [facility] URINE CULTURE 2022-01-02 10:39:00 MoulinCory [facility] MRSA / MSSA SCREEN BY 2022-01-02 10:39:00 MoCory lucio [facility] PCR, [facility] ABG+COOX+NA+K+GLU+CA2+ 2022-01-02 10:17:00 MoCory lucio [facility] AC PANEL 21 + LACTIC ACID 2022-01-02 03:53:00 Janis Valencia [facility] XR CHEST 1 VW 2022-01-02 02:59:00 Janis Valencia [facility] URINALYSIS 2022-01-02 02:58:00 Janis Valencia [facility] LACTIC ACID WHOLE BLOOD 2022-01-02 02:26:00 Janis Valencia [facility] AC PANEL 21 + LACTIC ACID 2022-01-02 02:26:00 Janis Valencia [facility] BLOOD CULTURE SCREEN 2022-01-02 02:25:00 Janis Valencia [facility] TROPONIN I 2022-01-02 02:25:00 Janis Valencia [facility] COMP. METABOLIC PANEL 2022-01-02 02:25:00 Janis Valencia [facility] ([id number]) [facility] CBC WITH DIFF 2022-01-02 02:25:00 Janis Valencia [facility] N-TERMINAL PRO-BNP 2022-01-02 02:25:00 Janis Valencia [facility] HB ECG ROUTINE & RHYTHM 2022-01-02 02:14:14 Janis Valencia [facility] HOSPITAL ADMISSION 2022-01-01 05:01:00 Doctor Unasssheila, [facility] XR CHEST 1 VW 2021-12-09 04:15:00 Duke Velazquez [facility] LIPASE 2021-12-09 03:52:00 Duke Velazquez [facility] TROPONIN I 2021-12-09 03:52:00 Duke Velazquez [facility] COMP. METABOLIC PANEL 2021-12-09 03:52:00 Duke Velazquez [facility] ([id number]) [facility] CBC WITH DIFF 2021-12-09 03:52:00 Duke Velazquez [facility] N-TERMINAL PRO-BNP 2021-12-09 03:52:00 Duke Velazquez [facility] CONSENT/REFUSAL FOR 2021-12-09 03:24:16 Doctor Unassigned, [facility] DIAGNOSIS AND TREATMENT [facility] POCT GLUCOSE (AUTOMATED) 2021-09-23 17:13:00 Paula Rowe [facility] POCT GLUCOSE (AUTOMATED) 2021-09-23 13:53:00 Paula Rowe [facility] BASIC METABOLIC PANEL 2021-09-23 10:22:00 Laurie Wilkins [facility] (NA, K, CL, CO2, GLUCOSE, Medica l Branch BUN, CREATININE, CA) CBC WITHOUT DIFF 2021-09-23 10:22:00 Laurie Wilkins [facility] POCT GLUCOSE (AUTOMATED) 2021-09-23 10:12:00 Paula Rowe [facility] POCT GLUCOSE (AUTOMATED) 2021-09-23 05:38:00 Paula Rowe [facility] POCT GLUCOSE (AUTOMATED) 2021-09-23 02:14:00 Paula Rowe [facility] POCT GLUCOSE (AUTOMATED) 2021-09-22 22:20:00 Paula oRwe [facility] POCT GLUCOSE (AUTOMATED) 2021-09-22 19:52:00 Paula Rowe [facility] TRANSTHORACIC ECHO (TTE) 2021-09-22 18:44:47 Cabrera [facility] COMPLETE W/ CONTRAST [facility] POCT GLUCOSE (AUTOMATED) 2021-09-22 18:07:00 Paula Rowe [facility] EKG-12 LEAD 2021-09-22 13:45:05 Jae Paula [facility] POCT GLUCOSE (AUTOMATED) 2021-09-22 13:20:00 Paula Rowe [facility] PNEUMOCOCCAL ANTIGEN 2021-09-22 12:39:00 Nathaniel [facility] MRSA / MSSA SCREEN BY 2021-09-22 12:34:00 [facility]iel [facility]PIRAT[facility] PANEL BY PCR 2021-09-22 12:34:00 Nikos Pugh [facility] GALV ONLY - INFLUENZA A B 2021-09-22 12:33:00 Cabrera Armstrong [facility] RSV [facility] COVID-19 (MOLECULAR 2021-09-22 12:33:00 [facility] NUCLEIC ACID AMPLIFICATION) SPUTUM CULTURE 2021-09-22 12:30:00 Nathaniel [facility] AC PANEL 20 + LACTIC ACID 2021-09-22 12:16:00 [facility] 2021-09-22 12:15:00 Nathaniel [facility] MAGNESIUM 2021-09-22 12:15:00 Nathaniel [facility] HEPATIC FUNCTION PANEL 2021-09-22 12:15:00 [facility] ([id number]) (ALB,T.PRO,BILI Medical Branch T,BU/BC,ALT,AST,ALK PHOS) BASIC METABOLIC PANEL 2021-09-22 12:15:00 [facility] (NA, K, CL, CO2, GLUCOSE, Medica l Branch BUN, CREATININE, CA) CBC WITH DIFF 2021-09-22 12:15:00 Nathaniel [facility] PROTHROMBIN TIME / INR 2021-09-22 12:15:[address] [facility] BLOOD CULTURE SCREEN 2021-09-22 12:13:00 Nathaniel [facility] AC PANEL 20 + LACTIC ACID 2021-09-22 06:41:00 Paula Rowe [facility] TROPONIN I 2021-09-22 06:36:00 Paula Rowe [facility] COMP. METABOLIC PANEL 2021-09-22 06:36:00 Paula Rowe [facility] ([id number]) [facility] [place] CBC WITH DIFF 2021-09-22 06:36:00 Paula Rowe [facility] GLYCOSYLATED HEMOGLOBIN 2021-09-22 06:36:00 [facility] PROTHROMBIN TIME / INR 2021-09-22 06:36:00 Paula Rowe [facility] ACTIVATED PARTIAL 2021-09-22 06:36:00 Paula Rowe [facility] THRMPLAS SHREYA [facility] N-TERMINAL PRO-BNP 2021-09-22 06:36:00 Paula Rowe [facility] COVID-19 (ID NOW RAPID 2021-09-22 06:36:00 Paula Rowe [facility] TESTING) Medical Branch LAB ONLY COVID 2021-09-22 06:36:00 Paula Rowe [facility] INTERPRETATION [facility] Branch XR CHEST 1 VW 2021-09-22 06:26:48 Paula Rowe [facility] HB ECG ROUTINE & RHYTHM 2021-09-22 06:17:39 Paula Rowe [facility] STRIP Medical Branch HOSPITAL ADMISSION 2021-09-22 06:01:00 Doctor Unasssheila, [facility] [place] CONSENT/REFUSAL FOR 2021-09-22 06:00:03 Doctor Unasssheila [facility] DIAGNOSIS AND TREATMENT [facility] DME/SUPPLY JUSTIFICATION 2021-08-01 06:01:00 Doctor Arturo [facility] Plan of Care Planned Activity Planned [...] [facility] 00:00:00 2) [code = SHINGLES [facility] VACCINES (1 of 2)] Future Scheduled 2011 SHINGLES VACCINES ([address] [facility] 00:00:00 2) [code = SHINGLES [facility] VACCINES (1 of 2)] Future Scheduled 2006 Lipid panel (procedure) [facility] 00:00:00 [code = 18641772] Medical Ce nter Future Scheduled 2006 Lipid panel (procedure) [facility] 00:00:00 [code = 66592675] Medical Ce nter Future Scheduled 1982 Screening for malignant [facility] Test 00:00:00 neoplasm of cervix Medical C enter (procedure) [code = 602887564] Future Scheduled 1982 Screening for malignant [facility] Test 00:00:00 neoplasm of cervix Medical C enter (procedure) [code = 434042042] Future Scheduled 1979 HEPATITIS C SCREENING CH [...] breast Medical C enter (procedure) [code = 250541397] Future Scheduled 1961 CT Colonography (combo) [facility] Test 00:00:00 [code = CT Colonography [facility] (combo)] Future Scheduled 1961 Screening for malignant [facility] Test 00:00:00 neoplasm of colon Medical Ce nter (procedure) [code = 297790708] Future Scheduled 1961 Screening for malignant [facility] Test 00:00:00 neoplasm of colon Medical Ce nter (procedure) [code = 426985824] Future Scheduled 1961 Screening for malignant [facility] Test 00:00:00 neoplasm of colon Medical Ce nter (procedure) [code = 501688878] Future Scheduled 1961 Screening for malignant [facility] Test 00:00:00 neoplasm of colon Medical Ce nter (procedure) [code = 530499207] Future Scheduled 1961 Sigmoidoscopy [code = [facility] S[facility]oidoscopy] Medical [facility] r Future Scheduled 1961 Screening for malignant [facility] Test 00:00:00 neoplasm of breast Medical C enter (procedure) [code = 418116931] Future Scheduled 1961 CT Colonography (combo) [facility] Test 00:00:00 [code = CT Colonography [facility] (combo)] Future Scheduled 1961 Screening for malignant [facility] Test 00:00:00 neoplasm of colon Medical Ce nter (procedure) [code = 998368739] Future Scheduled 1961 Screening for malignant [facility] Test 00:00:00 neoplasm of colon Medical Ce nter (procedure) [code = 752296189] Future Scheduled 1961 Screening for malignant [facility] Test 00:00:00 neoplasm of colon Medical Ce nter (procedure) [code = 057558107] Future Scheduled 1961 Screening for malignant [facility] Test 00:00:00 neoplasm of colon Medical Ce nter (procedure) [code = 072909617] Future Scheduled 1961 Sigmoidoscopy [facility]code [facility] 00:[facility] S[facility]oscopy] Medical Cente r Encounters Start End Encounter Admission Attending Care Care Encounter Source Date/Time Date/Time Type Type Clinicians Facility Department ID 2022-12-29 Outpatient [facility] [id number] [place] 11:59:53 [id number] [facility] 2022-12-22 Outpatient [facility] [id number] [place] 16:08:29 [id number] [facility] 2022-12-11 Inpatient R LV LIZ [facility] [id number] Univers 00:00:00 LV LIZ it y of [facility] 2022-08-05 Emergency [facility] [id number] Univers 00:34:25 ity [facility] 2022-12-29 2022-12-29 Outpatient TERENCE [facility] [id number] [place] 15:00:00 15:00:00 [facility] 2022-12-22 2022-12-22 Orders Doctor KATELYN 1.2.840.114 [id number] Univers 00:00:00 00:00:00 Only Unassigned, JACKIE 350.1.13.10 ity of [facility] 4.2.7.2.686 Compa as [id number] [facility] 009 Branch 2022-12-11 2022-12-11 Transition [place] Arrieta 1.2.840.114 [id number] Univers 00:00:00 00:00:00 of Care Alessandra Garcia RACHELE 350.1.13.10 i ty of [place] [id number] [facility] 403 Branch 2022-12-07 2022-12-10 Inpatient U LV LIZ [facility] MPU [id number] Univers 11:55:00 15:30:00 LV LIZ i ty of [facility] 2022-12-07 2022-12-10 [facility] ALEXSANDRA Liz 1.2.840.114 [id number] Univers 11:55:00 15:30:00 Encounter Lv MEJIA 350.1.13.10 ity of [facility] 4.2.7.2.686 Compa as [id number] [facility] 086 Branch 2022-11-25 2022-11-26 Hospital ER Tracy Johnson [facility] [id number] 02:46:00 14:00:00 Encounter Amy Lira [facility] 2022-11-25 2022-11-26 Inpatient ER LACY LIRA Internal [id number] [facility] 02:46:00 14:00:00 [facility] 2022-11-25 2022-11-25 Travel [facility] [id number] [facility] 00:[facility] 00:00:00 [facility] 2022-09-09 2022-09-09 Emergency [facility] [id number] Univers 06:30:00 08:46:00 JOSLYN shipman [facility] 2022-09-09 2022-09-09 Emergency [facility] 1.2.840.114 [id number] Univers 06:30:00 08:46:00 Joslyn BOYD 350.1.13.10 ity of [facility] 4.2.7.2.686 [facility] [id number] [facility] 084 Branch 2022-08-12 2022-08-12 Transition Arrieta, DEMICrow 1.2.840.114 [id number] Univers 00:00:00 00:00:00 of Care Alessandra JEFFREY 350.1.13.10 i ty kayla [place] [id number] [facility] 403 Branch 2022-08-05 2022-08-10 Inpatient U [facility]LOS [facility] [id number] Univers 00:39:00 17:00:00 COREY shipman [facility] 2022-08-05 2022-08-10 Hospital Jonas Hernandez [facility] 1.2.840.11 [id number] Univers 00:39:00 17:00:00 Encounter Corey Gonzalez 350.1.13.10 ity [facility] 4.2.7.2.686 [facility] [id number] [place] [id number] Branch 2022-06-04 2022-06-04 Emergency X SINGER [facility] ERT [id number] Univers 20:54:00 23:53:00 GEN shipman [facility] 2022-06-04 2022-06-04 Emergency [facility] [id number] Univers 20:54:00 23:53:00 Gen BOYD 350.1.13.10 i ty of [place] 4.2.7.2.686 [facility] [id number] [address] 2022-05-12 2022-05-13 Emergency X [facility] ERT [id number] Univers 22:51:00 03:10:00 PAULA shipman [facility] 2022-05-12 2022-05-13 Emergency [facility] [id number] [id number] Univers 22:51:00 03:10:00 Paula BOYD 350.1.13.10 i ty of [place] 4.2.7.2.686 [facility] [id number] [address] 2022-05-02 2022-05-02 Emergency X Sanjay HENRY [facility] ERT [id number] Univers 00:17:00 02:29:00 itcynthia [facility] 2022-05-02 2022-05-02 Emergency Sanjay Henry [facility] 1.2.840.114 [id number] Univers 00:17:00 02:29:00 Janel BOYD 350.1.13.10 i ty of [place] 4.2.7.2.686 [facility] [id number] [address] 2022-04-28 2022-04-29 Emergency X [facility] ERT [id number] Univers 21:41:00 00:50:00 PAULA shipman [facility] 2022-04-28 2022-04-29 Emergency [facility] 1.2.139.886 [id number] Univers 21:41:00 00:50:00 Paula BOYD 350.1.13.10 i ty of [place] 4.2.7.2.686 [facility] [id number] [address] 2022-03-02 2022-03-02 Transition [place] Arrieta 1.2.840.114 [id number] Univers 00:00:00 00:00:00 of Care Alessandra JEFFREY 350.1.13.10 i ty of [place] [id number] [facility] 403 Branch 2022-02-20 2022-02-27 Inpatient X DIANE [facility] MPU [id number] Univers 14:58:00 17:54:00 [facility] ity o f [facility] 2022-02-20 2022-02-27 [facility] Paula Rowe 1.2.840.1 [id number] Univers 14:58:00 17:54:00 Encounter Kevin LebronY 350.1.13.10 [facility]y [facility] 4.2.7.2. 686 [place] [id number] [facility] 086 Branch 2022-02-18 2022-02-18 Transition [place] Arrieta 1.2.840.114 [id number] Univers 00:00:00 00:00:00 of Care Alessandra JEFFREY 350.1.13.10 i ty [place] [id number] [facility] 403 [place] 2022-02-11 2022-02-17 Inpatient X [facility] ROBLES [id number] Univers 19:55:00 18:10:00 VALERIANO ity of [facility] 2022-02-11 2022-02-17 [facility] Paula Rowe [facility] 1.2.840.1 [id number] Univers 19:55:00 18:10:00 [facility] 350.1.13.1 0 ity of [facility] 4.2.7.2.[place] [facility] [id number] [address] ([facility]) 2022-02-02 2022-02-02 Transition [place] Arri[place] 1.2.840.114 [id number] Univers 00:00:00 00:00:00 of Jena JEFFREY 350.1.13.10 i ty of [place] [id number] [facility] 403 Branch 2022-01-27 2022-01-31 Inpatient X MARY [facility] ROBLES [id number] Univers 20:40:00 13:51:00 ALEXTIANNA ity of [facility] 2022-01-27 2022-01-31 Hospital Paula Rowe [facility] 1.2.840.1 [id number] Univers 20:40:00 13:51:00 Encounter Jonas Hernandez 350.1.13.10 [facility] 4.2.7.2.686 [facility] [id number] [facility] 080 Branch 2022-01-28 2022-01-28 Telephone [facility] 1.2.840.114 [id number] Univers 00:00:00 00:00:00 [facility] 350.1.13.10 it y of [place] 4.2.7.2.686 [facility] - [id number] Med ical [facility] 144 Branch 2022-01-13 2022-01-13 Transition [place] Arrieta 1.2.840.114 [id number] Univers 00:00:00 00:00:00 of Care Alessandra JEFFREY 350.1.13.10 i ty of [place] 4.2.7.2.686 [facility] [id number] [facility] 403 Branch 2022-01-12 2022-01-12 Emergency X [facility] ERT [id number] Univers 17:23:00 22:19:00 JOSLYN shipman [facility] 2022-01-12 2022-01-12 Emergency [facility] 1.2.840.114 [id number] Univers 17:23:00 22:19:00 Joslyn BOYD 350.1.13.10 ity [facility] 4.2.7.2.686 [facility] [id number] [facility] 084 Branch 2022-01-01 2022-01-12 Inpatient X ABU [facility] ROBLES [id number] Univers 21:18:00 14:06:00 umberto STACK [facility] 2022-01-01 2022-01-12 [facility] Janis Valencia [facility] 1 .2.840.114 [id number] Univers 21:18:00 14:06:00 Encounter Cory Cee 350.1.13.10 ity of Shahla Andrade 4.2.7.2.686 [facility] [id number] [facility] 111 Branch ([facility]) 2021-12-08 2021-12-09 Emergency X [facility] ERT [id number] Univers 22:28:00 00:58:00 FOLUSHO ity of [facility] 2021-12-08 2021-12-09 Emergency [facility] 1.2.840.114 [id number] Univers 22:28:00 00:58:00 Folusho Ozzy BOYD 350.1.13.10 ity of [place] [id number] [facility] 084 Branch 2021-09-24 2021-09-24 Transition [place] Brewer 1.2.840.114 [id number] Univers 00:00:00 00:00:00 of Care Patria JEFFREY 350.1.13.10 ity of [place].2.[place] [id number] [facility] 403 Branch 2021-09-22 2021-09-23 Inpatient U ENE GIVENS [facility] MPU [id number] Univers 00:05:00 15:03:00 ENE GIVENS i ty of [facility] 2021-09-22 2021-09-23 Hospital Paula Rowe 1.2.840.1 [id number] Univers 00:05:00 15:03:00 Encounter Ene Givens 350.1.13.10 ity of [facility] 4.2.7.2.686 Compa as [id number] [facility] [address] 2021-08-01 2021-08-01 Orders Doctor KATELYN 1.2.840.114 [id number] Univers 00:00:00 00:00:00 Only Unassigned, JACKIE 350.1.13.10 ity of [facility] 4.2.7.2.686 Compa as [id number] [facility] [address] 2021-07-23 2021-07-23 Office Saloni CABENEDICT [id number] Univers 14:15:00 14:30:00 Visit [facility] 350.1.13.10 it y of CANCER 4.2.7.2.686 [facility] [id number] [facility] [address] 2021-07-23 2021-07-23 [facility] [id number] Univers 14:15:00 14:15:00 LAYNE ity [facility] 2021-07-23 2021-07-23 [facility] [id number] Univers 14:15:00 14:15:00 [facility]-23 2021-07-23 [facility] [id number] Univers 00:00:00 00:00:00 [facility] 350.1.13.10 i ty of [facility] [place].2.[place] [id number] [facility] [address] 2021-06-25 2021-06-26 Emergency X [facility] [id number] Univers 21:58:00 03:17:00 [facility] 2021-06-25 2021-06-26 Emergency [facility] [id number] Univers 21:58:00 03:17:00 [facility] 350.1.13.10 ity of [facility] 4.2.7.2.686 [facility] [id number] [facility] [address] 2021-02-19 2021-02-19 Outpatient [facility] [id number] Univers 00:00:00 00:00:00 CAMILA cynthia [facility] 2020-02-01 2020-02-01 Outpatient [facility] [id number] Univers 00:00:00 00:00:00 CAMILA shipman [facility] 2019-09-01 2019-09-01 Outpatient [facility] [id number] Univers 14:41:55 23:59:00 GAB [facility] 2019-08-04 2019-08-04 Outpatient R YUMIKO, [facility] [id number] Univers 17:13:44 23:59:00 JUNE shipman [facility] Results Test Description Test Time Test Comments Results Result Comments Source POCT GLUCOSE (AUTOMATED) 2022-12-10 16:56:22 Test Item Value Reference Range Interpretation Comme nts POCT GLU (test code = 0547240125) 97 mg/dL 70-110 Lab Interpretation (test code = 16563-8) [facility]10 12:47:14 Test Item Value Reference Range Interpretation Comments POCT GLU (test code = 1146962003) 109 mg/dL 70-110 Lab Interpretation (test code = Normal 23927-5) [facility] (NA, K, CL, CO2, GLUCOSE, BUN, CREATININE, CA)2022-12-10 10:21:18 Test Item Value Reference Range Interpretation Comments NA (test code = 136 mmol/L 135-145 3154957548) K (test code = 3.4 mmol/L 3.5-5.0 L 0876930939) CL (test code = 96 mmol/L 98-108 L 7451315688) CO2 TOTAL (test code = 32 mmol/L 23-31 H 6461997759) AGAP (test code = 8 2-16 0311025702) BUN (test code = 24 mg/dL 7-23 H 8092766520) GLUCOSE (test code = 93 mg/dL 70-110 7256780045) CREATININE (test code = 0.99 mg/dL 0.50-1.04 2453041858) CALCIUM (test code = 8.7 mg/dL 8.6-10.6 2962228900) eGFR (test code = 57.0 mL/min/1.73m2 7659894183) JENNIFFER (test code = JENNIFFER) Association of [...] tests). Lab Interpretation Abnormal (test code = 44484-9) [facility] 10:21:18 Test Item Value Reference Range Interpretation Comments MAGNESIUM (test code = 7194576516) 2.1 mg/dL 1.7-2.4 Lab Interpretation (test code = Normal 44569-3) [facility] WITHOUT [id number] 09:50:09 Test Item Value Reference Range Interpretation Comments WBC (test code = 6690-2) 10.47 See_Comment [A utomated message] The system [employer] generated this result transmit alden reference range : 4.30 - 11.10 10*3/?L. The reference range was not used to interpret this result as normal/abnormal . RBC (test code = 789-8) 3.09 See_Comment L [Au tomated message] The system [employer] generated this result transmit alden reference range [...] 175 See_Comment [Au tomated message] The system [employer] generated this result transmit alden reference range : 166 - 358 10*3/?L. The reference range was not used to interpret this result as normal/abnormal . MPV (test code = 9.2 fL 9.5-12.9 L 94294-8) RDW-CV (test code = 14.6 % 12.0-15.5 788-0) RDW-SD (test code = 46.1 fL 39.0-49.9 58879-9) NRBC x10^3 (test code = See_Comment [Au tomated message] 8009203111) The system [employer] generated this result transmit alden reference range : 10*3/?L. The reference range was not used to interpret this result as normal/abnormal . NRBC/100 WBC (test code 0.0 See_Comment [Au tomated message] = 2078027229) The system [employer] generated this result transmit alden reference range : 0.0 - 10.0 /100 WBC s. The reference r josselyn was not used to interpret this result as normal/abnormal . IPF % (test code = 6496498183) Lab Interpretation (test Abnormal code = 62180-8) [facility] GLUCOSE (AUTOMATED)2022-12-10 09:40:29 Test Item Value Reference Range Interpretation Comments POCT GLU (test code = 2036067179) 103 mg/dL 70-110 Lab Interpretation (test code = Normal 79320-0) [facility] GLUCOSE (AUTOMATED)2022-12-10 05:27:42 Test Item Value Reference Range Interpretation Comments POCT GLU (test code = 6289628007) 87 mg/dL 70-110 Lab Interpretation (test code = Normal 56108-5) [facility] GLUCOSE (AUTOMATED)2022-12-10 01:22:34 Test Item Value Reference Range Interpretation Comments POCT GLU (test code = 7808939123) 91 mg/dL 70-110 Lab Interpretation (test code = Normal 60734-2) [facility] GLUCOSE (AUTOMATED)2022-12-09 21:07:38 Test Item Value Reference Range Interpretation Comments POCT GLU (test code = 1073532291) 105 mg/dL 70-110 Lab Interpretation (test code = Normal 23961-5) [facility] GLUCOSE (AUTOMATED)2022-12-09 17:09:56 Test Item Value Reference Range Interpretation Comments POCT GLU (test code = 9173443179) 132 mg/dL 70-110 H Lab Interpretation (test code = Abnormal 23760-9) [facility] GLUCOSE (AUTOMATED)2022-12-09 12:58:42 Test Item Value Reference Range Interpretation Comments POCT GLU (test code = 2655031958) 173 mg/dL 70-110 H Lab Interpretation (test code = Abnormal 10573-8) [facility] METABOLIC PANEL (NA, K, CL, CO2, GLUCOSE, BUN, CREATININE, CA)2022-12-09 09:53:39 Test Item Value Reference Range Interpretation Comments NA (test code = 135 mmol/L 135-145 6988166753) K (test code = 3.1 mmol/L 3.5-5.0 L 4350396225) CL (test code = 94 mmol/L 98-108 L 9807319235) CO2 TOTAL (test code = 33 mmol/L 23-31 H 9424802457) AGAP (test code = 8 2-16 1924526029) BUN (test code = 26 mg/dL 7-23 H 8236278852) GLUCOSE (test code = 127 mg/dL 70-110 H 0281948963) CREATININE (test code = 0.96 mg/dL 0.50-1.04 7346080261) CALCIUM (test code = 8.8 mg/dL 8.6-10.6 0725233031) eGFR (test code = 59.1 mL/min/1.73m2 9613975349) JENNIFFER (test code = JENNIFFER) Association of [...] tests). Lab Interpretation Abnormal (test code = 71062-7) [facility] WITHOUT [id number] 09:29:57 Test Item Value Reference Range Interpretation Comments WBC (test code = 6690-2) 8.67 See_Comment [A utomated message] The system [employer] generated this result transmit alden reference range : 4.30 - 11.10 10*3/?L. The reference range was not used to interpret this result as normal/abnormal . RBC (test code = 789-8) 2.99 See_Comment L [Au tomated message] The system [employer] generated this result transmit alden reference range [...] 182 See_Comment [Au tomated message] The system [employer] generated this result transmit alden reference range : 166 - 358 10*3/?L. The reference range was not used to interpret this result as normal/abnormal . MPV (test code = 9.4 fL 9.5-12.9 L 43552-2) RDW-CV (test code = 14.6 % 12.0-15.5 788-0) RDW-SD (test code = 46.5 fL 39.0-49.9 20146-0) NRBC x10^3 (test code = See_Comment [Au tomated message] 6685010703) The system [employer] generated this result transmit alden reference range : 10*3/?L. The reference range was not used to interpret this result as normal/abnormal . NRBC/100 WBC (test code 0.0 See_Comment [Au tomated message] = 2027169933) The system [facility] generated this result transmit alden reference range : 0.0 - 10.0 /100 WBC s. The reference r josselyn was not used to interpret this result as normal/abnormal . IPF % (test code = 4694399180) Lab Interpretation (test Abnormal code = 68543-8) [facility] + Lactic [id number] 09:09:40 Test Item Value Reference Range Interpretation Comments PH (test code = 2) 7.53 7.35-7.45 H PCO2 (test code = 40 See_Comment [Automate d 9180622467) message] The sy stem which generated this result transmitted reference range : 35 - 45 mmHg. The reference range was not used to interpret this result as normal/abnormal . PO2 (test code = 83 See_Comment [Automated 9341103055) message] The sy stem which generated this result transmitted reference range : 80 - 100 mmHg. The reference range was not used to interpret this result as normal/abnormal . HCO3 (test code = 33 See_Comment H [Automate d 7955371671) message] The sy stem which generated this result transmitted reference range : 22 - 26 mEq/L. The reference range was not used to interpret this result as normal/abnormal . BE (test code = 8.6 See_Comment H [Automated 0148650142) message] The sy stem which generated this result transmitted reference range : -3.0 - 3.0 mEq/ L. The reference r josselyn was not used to interpret this result as normal/abnormal . THB (test code = 12.3 g/dL 12.0-16.0 4768679961) %O2HB (test code = 97.1 % 94.0-99.0 7557128731) %COHB ART (test code = 0.5 % 0.0-1.5 2899787061) %METHB ART (test code = 0.0 % 0.4-1.5 L 9064598228) VOL%O2 ART (test code = 16.9 % 15.0-23.0 0060609559) NA (test code = 136 mmol/L 135-145 6894968376) K+ (test code = 3.2 mmol/L 3.5-5.0 L 7403646713) AC CA IONZ (test code = 4.60 mg/dL 4.50-5.30 7093456391) GLUCOSE (test code = 128 mg/dL 70-110 H 4776396256) LACTIC ACID (test code 0.96 mmol/L 0.50-2.20 = 3176378275) Lab Interpretation Abnormal (test code = 40946-9) [facility]-09 04:41:21 Test Item Value Reference Range Interpretation Comments POCT GLU (test code = 8340964564) 161 mg/dL 70-110 H Lab Interpretation (test code = Abnormal 69891-9) [facility] + Lactic [id number] 04:03:14 Test Item Value Reference Range Interpretation Comments PH (test code = 2) 7.50 7.35-7.45 H PCO2 (test code = 45 See_Comment [Automate d 8947456591) message] The sy stem which generated this result transmitted reference range : 35 - 45 mmHg. The reference range was not used to interpret this result as normal/abnormal . PO2 (test code = 89 See_Comment [Automated 5187153544) message] The sy stem which generated this result transmitted reference range : 80 - 100 mmHg. The reference range was not used to interpret this result as normal/abnormal . HCO3 (test code = 35 See_Comment H [Automate d 5236969030) message] The sy stem which generated this result transmitted reference range : 22 - 26 mEq/L. The reference range was not used to interpret this result as normal/abnormal . BE (test code = 10.0 See_Comment H [Automated 2352298722) message] The sy stem which generated this result transmitted reference range : -3.0 - 3.0 mEq/ L. The reference r josselyn was not used to interpret this result as normal/abnormal . THB (test code = 10.2 g/dL 12.0-16.0 L 4566020699) %O2HB (test code = 97.1 % 94.0-99.0 8445142768) %COHB ART (test code = 0.3 % 0.0-1.5 9643927435) %METHB ART (test code = 0.0 % 0.4-1.5 L 4946654588) VOL%O2 ART (test code = 14.1 % 15.0-23.0 L 1898430681) NA (test code = 135 mmol/L 135-145 2996863742) K+ (test code = 3.3 mmol/L 3.5-5.0 L 0744718995) AC CA IONZ (test code = 4.60 mg/dL 4.50-5.30 6131943274) GLUCOSE (test code = 162 mg/dL 70-110 H 4204515900) LACTIC ACID (test code 1.23 mmol/L 0.50-2.20 = 5772764007) Lab Interpretation Abnormal (test code = 06727-6) [facility] GLUCOSE (AUTOMATED)2022-12-09 00:36:59 Test Item Value Reference Range Interpretation Comments POCT GLU (test code = 9934790406) 141 mg/dL 70-110 H Lab Interpretation (test code = Abnormal 37503-3) [facility] GLUCOSE (AUTOMATED)2022-12-08 22:08:57 Test Item Value Reference Range Interpretation Comments POCT GLU (test code = 7534717918) 143 mg/dL 70-110 H Lab Interpretation (test code = Abnormal 76448-8) [facility] 17:00:53 Test Item Value Reference Range Interpretation Comments LIPASE (test code = 4880893317) 10 U/L 0-220 Lab Interpretation (test code = Normal 72167-2) [facility]2022-12-08 12:58:21 Test Item Value Reference Range Interpretation Comments POCT GLU (test code = 7354055547) 92 mg/dL 70-110 Lab Interpretation (test code = Normal 27136-8) [facility] WITHOUT [id number] 12:02:38 Test Item Value Reference Range Interpretation Comments WBC (test code = 6690-2) 11.45 See_Comment H [A utomated message] The system [employer] generated this result transmit alden reference range : 4.30 - 11.10 10*3/?L. The reference range was not used to interpret this result as normal/abnormal . RBC (test code = 789-8) 3.16 See_Comment L [Au tomated message] The system [employer] generated this result transmit alden reference range [...] 254 See_Comment [Au tomated message] The system [employer] generated this result transmit alden reference range : 166 - 358 10*3/?L. The reference range was not used to interpret this result as normal/abnormal . MPV (test code = 9.8 fL 9.5-12.9 02192-8) RDW-CV (test code = 14.1 % 12.0-15.5 788-0) RDW-SD (test code = 43.3 fL 39.0-49.9 74941-3) NRBC x10^3 (test code = See_Comment [Au tomated message] 6393983622) The system [employer] generated this result transmit alden reference range : 10*3/?L. The reference range was not used to interpret this result as normal/abnormal . NRBC/100 WBC (test code 0.0 See_Comment [Au tomated message] = 7899625429) The system [employer] generated this result transmit alden reference range : 0.0 - 10.0 /100 WBC s. The reference r josselyn was not used to interpret this result as normal/abnormal . IPF % (test code = 5191058779) Lab Interpretation (test Abnormal code = 91777-8) [facility] METABOLIC PANEL (NA, K, CL, CO2, GLUCOSE, BUN, CREATININE, CA)2022-12-08 10:10:30 Test Item Value Reference Range Interpretation Comments NA (test code = 138 mmol/L 135-145 1960442436) K (test code = 3.9 mmol/L 3.5-5.0 Slight 4192687826) hemolysis CL (test code = 93 mmol/L 98-108 L 9184507097) CO2 TOTAL (test code 38 mmol/L 23-31 H = 9527414615) AGAP (test code = 7 2-16 9150091087) BUN (test code = 29 mg/dL 7-23 H Slight 7369325666) hemolysis GLUCOSE (test code = 99 mg/dL 70-110 8190414183) CREATININE (test code 0.76 mg/dL 0.50-1.04 = 7334319464) CALCIUM (test code = 9.2 mg/dL 8.6-10.6 7274317368) eGFR (test code = 77.4 mL/min/1.73m2 0982231035) JENNIFFER (test code = JENNIFFER) Association of [...] tests). Lab Interpretation Abnormal (test code = 29119-4) [facility] 10:[facility]30 Test Item Value Reference Range Interpretation Comments MAGNESIUM (test code = 6044399303) 2.0 mg/dL 1.7-2.4 Lab Interpretation (test code = Normal 70892-4) [facility] GLUCOSE (AUTOMATED)2022-12-08 09:02:24 Test Item Value Reference Range Interpretation Comments POCT GLU (test code = 8119577579) 129 mg/dL 70-110 H Lab Interpretation (test code = Abnormal 90834-4) [facility] GLUCOSE (AUTOMATED)2022-12-08 04:46:08 Test Item Value Reference Range Interpretation Comments POCT GLU (test code = 5730103470) 201 mg/dL 70-110 H Lab Interpretation (test code = Abnormal 41383-6) [facility] GLUCOSE (AUTOMATED)2022-12-08 01:03:54 Test Item Value Reference Range Interpretation Comments POCT GLU (test code = 9367476069) 236 mg/dL 70-110 H Lab Interpretation (test code = Abnormal 01895-7) [facility] GLUCOSE (AUTOMATED)2022-12-07 22:01:17 Test Item Value Reference Range Interpretation Comments POCT GLU (test code = 0988121587) 320 mg/dL 70-110 H Lab Interpretation (test code = Abnormal 36951-6) [facility].2022-12-07 18:09:39 Test Item Value Reference Range Interpretation Comments PH (test code = 2) 7.37 7.35-7.45 PCO2 (test code = 69 See_Comment H [Automate d message] 0894327578) The system [employer] generated this result transmitted ref erence range: 35 - 45 mmHg. The reference r josselyn was not used to interpret this result as normal/abnor mal. PO2 (test code = 380 See_Comment H [Automated message] 9937959207) The system [employer] generated this result transmitted ref erence range: 80 - 100 mmHg. The reference r josselyn was not used to interpret this result as normal/abnor mal. HCO3 (test code = 39 See_Comment H [Automate d message] 5815840437) The system [employer] generated this result transmitted ref erence range: 22 - 26 mEq/L. The reference r josselyn was not used to interpret this result as normal/abnor mal. BE (test code = 10.9 See_Comment H [Automated message] 8902482768) The system [employer] generated this result transmitted ref erence range: -3.0 - 3 .0 mEq/L. The refe rence range was not u sed to interpret this result as normal/abnor mal. Lab Interpretation (test Abnormal code = 17146-8) [facility] [id number] 10:39:20 Test Item Value Reference Range Interpretation [...] 5.7- 6.4% indicates increased risk for diabetes (prediabetes)."Roller Staker ID - ADMOperator ID - ADMPOC-Glucose [id number] 10:22:15 Test Item Value Reference Range Interpretation Comments POC-Glucose Meter (test 205 mg/dL 70-110 H : TE STED AT [facility] code = 1538) [address] [facility], [address] 30: Roller Staker/Techni parag ID = [id number] for COWAN, VANESS A Lab Interpretation (test Abnormal code = 38427-6) [facility] [id number] 10:22:15 Test Item Value Reference Range Interpretation Comments POC-Glucose Meter (test 205 mg/dL 70-110 H : TE STED AT [facility] code = 1538) [address] [facility], 770 30: Roller Staker/Techni parag ID = [id number] for COWAN, VANESS A Lab Interpretation (test Abnormal code = 84459-8) [facility] Sunset-GLUCOSE [id number] 10:22:15 Test Item Value Reference Range Interpretation Comments POC-GLUCOSE METER 205 mg/dL 70-110 H : TESTED A T [facility] [address] (BEAKER) (test code = IRVIN Mendez [facility], 1538) [address]: Roller Staker/Techni parag ID = [id number] for AG UILAR, MISHA RAD, CHEST, 1 VIEW, NON [id number] 10:14:00Reason for exam:->sobShould this be performed at the bedside?->Yes [facility] : 1960 Sex: FFINALREPORT INDICATION: sob COMPARISON: None TECHNIQUE: Single frontal view of the chest. FINDINGS: Lungs and pleura: Trace bilateral effusions and adjacent atelectasis.Heart and mediastinum: Normal heart size. Unremarkable mediastinal contours.Osseous structures: No acute abnormality.Other: Tracheostomy. Signed: Selma Niño Verified Date/Time: 11/26/2022 10:14:47 Reading Location: [address] Reading Room COMPREHENSIVE METABOLIC PANEL 2022-11-26 [...] high >=90 G2 Mildly decreased 60-89 G3a Mild ly to moderately 45-5 9 G3b Moderately to [...] not appl icable for dialysis patien ts Roller Staker ID - [id number] 06:58:15 Test Item Value Reference Range Interpretation Comments MAGNESIUM (BEAKER) (test code = 2.2 mg/dL 1.6-2.6 627) Roller Staker ID - ADMINCBC W/PLT COUNT & AUTO [id number] 06:28:22 Test Item Value Reference Range Interpretation [...] PERCENT (BEAKER) (test code = 2801) POCT-GLUCOSE [id number] 23:33:03 Test Item Value Reference Range Interpretation Comments POC-GLUCOSE METER 193 mg/dL 70-110 H : TESTED A T [facility] 67[address] (BEAKER) (test code = IRVIN TAMAYO [place], 1538) [address]: Roller Staker/Techni parag ID = [id number] for Af zaal, Sean T4, [id number] 18:42:05 Test Item Value Reference Range Interpretation Comments FREE T4 (BEAKER) (test code = 655) 1.17 ng/dL 0.70-1.48 Roller Staker ID - DBTSH/FREE T4 IF [id number] 18:08:13 Test Item Value Reference Range Interpretation Comments THYROID STIMULATING HORMONE 0.100 uIU/mL 0.350-4.940 L (BEAKER) (test code = 772) Roller Staker ID - [id number] 17:37:29 Test Item Value Reference Range Interpretation Comments MAGNESIUM (BEAKER) 2.2 mg/dL 1.6-2.6 Specimen slightly (test code = 627) hemolyzed Roller Staker ID - ADMINCOMPREHENSIVE METABOLIC [id number] 17:37:29 Test Item Value Reference Range Interpretation [...] eGF R is based on the CKD-EPI 202 equation that d oes not use a race coefficientEsti mated GFR is not as accur ate as Creatinine Janie rai in predicting glom erular filtration rate . Estimated GFR is not appl icable for dialysis patien ts Roller Staker ID - ADMINB-TYPE NATRIURETIC FACTOR (BNP)2022-11-25 17:37:29 Test Item Value Reference Range Interpretation Comments B-TYPE NATRIURETIC PEPTIDE (BEAKER) 35 pg/mL 0-100 (test code = 700) Roller Staker ID - ADMINCBC W/PLT COUNT & AUTO [id number] 17:08:37 Test Item Value Reference Range Interpretation [...] PERCENT (BEAKER) (test code = 2801) POCT-GLUCOSE [id number] 16:44:23 Test Item Value Reference Range Interpretation Comments POC-GLUCOSE METER 192 mg/dL 70-110 H : TESTED A T [facility] 6720 (BEAKER) (test code = IRVIN Mendez [facility], 1538) [address]: Roller Staker/Techni parag ID = [id number] for LAURA VIVEROS POCT-GLUCOSE [id number] 09:19:54 Test Item Value Reference Range Interpretation Comments POC-GLUCOSE METER 205 mg/dL 70-110 H : TESTED A T [facility] 67[address] (BEAKER) (test code = JIMKS Andrea [facility], 1538) [address]: Roller Staker/Techni parag ID = [id number] for CAMILLA HERNDON POCT GLUCOSE (AUTOMATED)2022-08-10 20:26:18 Test Item Value Reference Range Interpretation Comments POCT GLU (test code = 8848721590) 178 mg/dL 70-110 H Lab Interpretation (test code = Abnormal 74404-3) [facility] GLUCOSE (AUTOMATED)2022-08-10 20:26:17 Test Item Value Reference Range Interpretation Comments POCT GLU (test code = 4314519200) 134 mg/dL 70-110 H Lab Interpretation (test code = Abnormal 82816-7) [facility] GLUCOSE (AUTOMATED)2022-08-10 09:35:52 Test Item Value Reference Range Interpretation Comments POCT GLU (test code = 2380332327) 240 mg/dL 70-110 H Lab Interpretation (test code = Abnormal 66731-9) [facility] GLUCOSE (AUTOMATED)2022-08-10 06:09:42 Test Item Value Reference Range Interpretation Comments POCT GLU (test code = 1265172311) 219 mg/dL 70-110 H Lab Interpretation (test code = Abnormal 09609-9) [facility] GLUCOSE (AUTOMATED)2022-08-10 02:27:50 Test Item Value Reference Range Interpretation Comments POCT GLU (test code = 2607402983) 264 mg/dL 70-110 H Lab Interpretation (test code = Abnormal 94006-7) [facility] GLUCOSE (AUTOMATED)2022-08-09 22:32:46 Test Item Value Reference Range Interpretation Comments POCT GLU (test code = 9985519451) 327 mg/dL 70-110 H Lab Interpretation (test code = Abnormal 44649-8) [facility]2022-08-09 13:19:52 Test Item Value Reference Range Interpretation Comments POCT GLU (test code = 4151430338) 196 mg/dL 70-110 H Lab Interpretation (test code = Abnormal 67719-0) [facility] 12:10:11 Test Item Value Reference Range Interpretation Comments MAGNESIUM (test code = 7665977039) 2.5 mg/dL 1.7-2.4 H Lab Interpretation (test code = Abnormal 51896-6) [facility] METABOLIC PANEL (NA, K, CL, CO2, GLUCOSE, BUN, CREATININE, CA)2022-08-09 12:10:06 Test Item Value Reference Range Interpretation Comments NA (test code = 137 mmol/L 135-145 8316892254) K (test code = 4.3 mmol/L 3.5-5.0 3716100667) CL (test code = 101 mmol/L 98-108 2004825415) CO2 TOTAL (test code = 35 mmol/L 23-31 H 2300330087) AGAP (test code = 2-16 L 6732895250) BUN (test code = 22 mg/dL 7-23 8921514042) GLUCOSE (test code = 186 mg/dL 70-110 H 0242774662) CREATININE (test code = 0.82 mg/dL 0.50-1.04 2467886784) CALCIUM (test code = 8.2 mg/dL 8.6-10.6 L 0846801067) eGFR (test code = mL/min/1.73m2 3411086572) JENNIFFER (test code = JENNIFFER) Association of [...] tests). Lab Interpretation Abnormal (test code = 47990-3) [facility] Test Item Value Reference Range Interpretation Comments PHOSPHORUS (test code = 0794487920) 3.2 mg/dL 2.5-5.0 Lab Interpretation (test code = Normal 53016-7) [facility] WITH [id number] 12:03:07 Test Item Value Reference Range Interpretation Comments WBC (test code = See_Comment [Automated 3290-2) message] The sy stem which generated this result transmitted reference range : 4.30 - 11.10 10*3/?L. The reference range was not used to interpret this result as normal/abnormal . RBC (test code = See_Comment L [Automated 039-8) message] The sy stem which generated this [...] RDW-SD (test code = 47.1 fL 39.0-49.9 54314-1) RDW-CV (test code = 14.6 % 12.0-15.5 788-0) PLT (test code = See_Comment [Automated 777-3) message] The sy stem which generated this result transmitted reference range : 166 - 358 10*3/ ?L. The reference r josselyn was not used to interpret this result as normal/abnormal . MPV (test code = 9.5 fL 9.5-12.9 20510-9) NRBC/100 WBC (test See_Comment [Automat ed code = 8372031347) message] The system which generated this result transmitted reference range : 0.0 - 10.0 /100 WBCs. The refer ence range was not u sed to interpret th is result as normal/abnormal . NRBC x10^3 (test code See_Comment [Auto mated = 9415019539) message] The s ystem which generated this result transmitted reference range : 10*3/?L. The reference range was not used to interpret this result as normal/abnormal . GRAN MAT (NEUT) % 85.8 % (test code = 770-8) IMM GRAN % (test code 2.50 % = 3655245088) LYMPH % (test code = 6.7 % 736-9) MONO % (test code = 4.8 % 5905-5) EOS % (test code = 0.1 % 713-8) BASO % (test code = 0.1 % 706-2) GRAN MAT x10^3(ANC) 7.74 10*3/uL 1.88-7.09 H (test code = 0778579089) IMM GRAN x10^3 (test 0.23 10*3/uL 0.00-0.06 H code = 5857937626) LYMPH x10^3 (test code 0.60 10*3/uL 1.32-3.29 L = 731-0) MONO x10^3 (test code 0.43 10*3/uL 0.33-0.92 = 742-7) EOS x10^3 (test code = 0.03-0.39 L 711-2) BASO x10^3 (test code 0.01-0.07 = 704-7) Lab Interpretation Abnormal (test code = 44890-5) [facility] GLUCOSE (AUTOMATED)2022-08-09 11:54:17 Test Item Value Reference Range Interpretation Comments POCT GLU (test code = 3748241810) 202 mg/dL 70-110 H Lab Interpretation (test code = Abnormal 75724-9) [facility] GLUCOSE (AUTOMATED)2022-08-09 06:19:48 Test Item Value Reference Range Interpretation Comments POCT GLU (test code = 1392194312) 231 mg/dL 70-110 H Lab Interpretation (test code = Abnormal 35260-3) [facility] GLUCOSE (AUTOMATED)2022-08-09 02:32:58 Test Item Value Reference Range Interpretation Comments POCT GLU (test code = 7691290088) 316 mg/dL 70-110 H Lab Interpretation (test code = Abnormal 49851-4) [facility] GLUCOSE (AUTOMATED)2022-08-09 02:28:52 Test Item Value Reference Range Interpretation Comments POCT GLU (test code = 7641249221) 363 mg/dL 70-110 H Lab Interpretation (test code = Abnormal 85589-5) [facility] GLUCOSE (AUTOMATED)2022-08-08 17:32:51 Test Item Value Reference Range Interpretation Comments POCT GLU (test code = 1982410964) 201 mg/dL 70-110 H Lab Interpretation (test code = Abnormal 50054-4) [facility] GLUCOSE (AUTOMATED)2022-08-08 17:32:51 Test Item Value Reference Range Interpretation Comments POCT GLU (test code = 3765841386) 251 mg/dL 70-110 H Lab Interpretation (test code = Abnormal 73113-7) [facility] GLUCOSE (AUTOMATED)2022-08-08 10:02:25 Test Item Value Reference Range Interpretation Comments POCT GLU (test code = 0330631189) 153 mg/dL 70-110 H Lab Interpretation (test code = Abnormal 17315-3) [facility] GLUCOSE (AUTOMATED)2022-08-08 06:20:09 Test Item Value Reference Range Interpretation Comments POCT GLU (test code = 0852211522) 224 mg/dL 70-110 H Lab Interpretation (test code = Abnormal 32921-1) [facility] GLUCOSE (AUTOMATED)2022-08-08 02:43:59 Test Item Value Reference Range Interpretation Comments POCT GLU (test code = 5625862642) 256 mg/dL 70-110 H Lab Interpretation (test code = Abnormal 45146-7) [facility] GLUCOSE (AUTOMATED)2022-08-07 22:28:36 Test Item Value Reference Range Interpretation Comments POCT GLU (test code = 5263525654) 273 mg/dL 70-110 H Lab Interpretation (test code = Abnormal 71513-4) [facility] 22:15:07 Test Item Value Reference Range Interpretation Comments Height (test code = in 8395742689) Weight (test code = lbs 3703975272) Systolic BP (test code = mmHg 3816555468) Diastolic BP (test code mmHg = 9362973924) Heart Rate (test code = bpm 7097290137) BSA (test code = 1.96 m2 7414453596) Ao root diam (test code 3.30 cm = 9412720738) Aortic root (test code = 3.3 cm 7304886146) Ao root annulus (test 3.3 cm code = 9177889753) LVOT diameter (test code 1.80 cm = 3025433029) LVOT area (test code = 2.60 cm2 3542500938) LVIDD (test code = 3.50 cm 4921922138) Left Ventricular End 51.9 mL Diastolic Volume by Teichholz Method (test code = 5101740) IVS (test code = 1.24 cm 0634453821) Interventricular Septum 1.24 cm Diastolic Thickness by 2D (test code = 1868041) LVPWD (test code = 1.24 cm 6188848451) PW (test code = 1.24 cm 0.6-1.7 0863956693) EF(Teich) (test code = 58.70 % 2566074082) LVIDS (test code = 2.46 cm 6241310827) Left Ventricular End 21.4 mL Systolic Volume by Teichholz Method (test code = 7266367) FS (test code = 30 % 5184984862) EF - 2D (test code = 58.70 % 23152897) LA size (test code = 2.9 cm 9954275300) MV Peak E Marva (test code 81.4 cm/s = 9004390329) MV stenosis pressure 1/2 76.6 ms time (test code = 7966759999) E wave decelartion time 0.26 s (test code = 9628993054) MV Peak A Marva (test code 87.8 cm/s = 4437114150) E/A ratio (test code = ratio 6013303035) MV Prop V (test code = 139.40 cm/s 4356961622) MV E/e' septal (test 7.4 cm/s code = 4966935170) Tapse (test code = 1.61 cm 5488281683) LVOT stroke volume (test 53.30 cm3 code = 4623082860) LVOT peak marva (test code 128.1 cm/s = 8564650461) LVOT mn grad (test code mmHg = 7864442790) AV LVOT peak gradient mmHg (test code = 4416771610) LVOT peak VTI (test code 20.9 cm = 9857400982) LV V1 mean (test code = 86.80 cm/s 2930981489) Aortic valve mean 119.8 cm/s velocity (test code = 8614770100) Ao peak marva (test code = 175.1 cm/s 6204154470) Ao VTI (test code = 28.5 cm 3854353053) AV area by cont VTI 1.9 cm2 (test code = 5055768870) AV area peak marva (test 1.9 cm2 code = 2693597707) Ao max PG (test code = 12.30 mm[Hg] 1107134104) AV peak gradient (test mmHg code = 1429181896) AV valve area (test code 1.87 cm2 = 0535707560) AV mean gradient (test mmHg code = 2258835635) Radiology Study observation (narrative) (test code = 33647-6) JENNIFFER (test code = JENNIFFER) Table formatting [...] mL of Lumason ultrasound enhancing agent used. [facility] GLUCOSE (AUTOMATED)2022-08-07 17:28:57 Test Item Value Reference Range Interpretation Comments POCT GLU (test code = 168 mg/dL 70-110 H Notifi ed Provider 0421663460) Lab Interpretation (test Abnormal code = 31076-3) [facility] [id number] 14:57:11 Test Item Value Reference Range Interpretation Comments TSH (test code = See_Comment Biotin has been 1150258820) reported to cau se a negative bias, interpret resul ts relative to pat ient's use of biotin. [Automated mess age] The system whic h generated this result transmitted ref erence range: 0.45 - 4 .70 mIU/L. The refe rence range was not u sed to interpret this result as normal/abnor mal. Lab Interpretation (test Normal code = 49495-4) [facility] GLUCOSE (AUTOMATED)2022-08-07 13:46:07 Test Item Value Reference Range Interpretation Comments POCT GLU (test code = 1698165611) 180 mg/dL 70-110 H Lab Interpretation (test code = Abnormal 37464-4) [facility] GLUCOSE (AUTOMATED)2022-08-07 12:34:16 Test Item Value Reference Range Interpretation Comments POCT GLU (test code = 3620170959) 198 mg/dL 70-110 H Lab Interpretation (test code = Abnormal 92706-5) [facility] [id number] 12:27:41 Test Item Value Reference Interpretation Comments Range TROPONIN I (test 0.005 ng/mL See_Comment [Automated code = 0112972497) message] The system which generated this result [...] biotin. Lab Interpretation Normal (test code = 47400-1) [id number] 12:24:19 Test Item Value Reference Range Interpretation Comments NT-proBNP (test code 332 pg/mL See_Comment H [Autom ated = 5672849934) message] The system which generated this result transmitted reference range : <=125. The reference range was not used to interpret this result as normal/abnormal . JENNIFFER (test code = JENNIFFER) Biotin has been reported to cause a negative bias, interpret results relative to patient's use of biotin. Lab Interpretation Abnormal (test code = 12067-8) [facility] (96873)2022-08-07 12:17:19 Test Item Value Reference Range Interpretation Comments NA (test code = 137 mmol/L 135-145 5097355126) K (test code = 4.3 mmol/L 3.5-5.0 8186882278) CL (test code = 103 mmol/L 98-108 0705336699) CO2 TOTAL (test code = 30 mmol/L 23-31 2932175490) AGAP (test code = 2-16 6310869273) BUN (test code = 30 mg/dL 7-23 H 9313178318) GLUCOSE (test code = 198 mg/dL 70-110 H 0593969323) CREATININE (test code = 0.93 mg/dL 0.50-1.04 6998232908) TOTAL BILI (test code = 0.4 mg/dL 0.1-1.1 7001559629) CALCIUM (test code = 8.3 mg/dL 8.6-10.6 L 2147216562) T PROTEIN (test code = 6.0 g/dL 6.3-8.2 L 4954238620) ALBUMIN (test code = 3.2 g/dL 3.5-5.0 L 8933744529) ALK PHOS (test code = 70 U/L 34-122 3581704708) ALTv (test code = 23 U/L 5-35 1742-6) AST(SGOT) (test code = 22 U/L 13-40 7830468357) eGFR (test code = mL/min/1.73m2 7359554570) JENNIFFER (test code = JENNIFFER) Association of [...] tests). Lab Interpretation Abnormal (test code = 22243-5) [facility] 12:17:19 Test Item Value Reference Range Interpretation Comments MAGNESIUM (test code = 7769766143) 2.4 mg/dL 1.7-2.4 Lab Interpretation (test code = Normal 68231-6) [facility] 12:16:59 Test Item Value Reference Range Interpretation Comments PHOSPHORUS (test code = 9241613697) 3.3 mg/dL 2.5-5.0 Lab Interpretation (test code = Normal 41698-6) [facility] [id number] 12:16:18 Test Item Value Reference Range Interpretation Comments WBC (test code = See_Comment H [Automated 6690-2) message] The system which generated this result transmit alden reference range : 4.30 - 11.10 10*3/?L. The reference range was not used to interpret this result as normal/abnormal . RBC (test code = See_Comment L [Automated 539-8) message] The system which generated this result [...] (test code = 50.2 fL 39.0-49.9 H 75307-6) RDW-CV (test code = 15.1 % 12.0-15.5 788-0) PLT (test code = See_Comment [Automated 777-3) message] The system which generated this result transmit alden reference range : 166 - 358 10*3/ ?L. The reference range was not u sed to interpret th is result as normal/abnormal . MPV (test code = 10.0 fL 9.5-12.9 18947-9) NRBC/100 WBC (test See_Comment [Automat ed code = 0875101351) message] The system which generated this result transmit alden reference range : 0.0 - 10.0 /100 WBCs. The reference range was not used to interpret this result as normal/abnormal . NRBC x10^3 (test code See_Comment [Auto mated = 4507740952) message] The system which generated this result transmit alden reference range : 10*3/?L. The reference range was not used to interpret this result as normal/abnormal . GRAN MAT (NEUT) % 87.7 % (test code = 770-8) IMM GRAN % (test code 1.10 % = 5799777559) LYMPH % (test code = 7.7 % 736-9) MONO % (test code = 3.4 % 5905-5) EOS % (test code = 0.0 % 713-8) BASO % (test code = 0.1 % 706-2) GRAN MAT x10^3(ANC) 11.83 10*3/uL 1.88-7.09 H (test code = 4131302251) IMM GRAN x10^3 (test 0.15 10*3/uL 0.00-0.06 H code = 0062959283) LYMPH x10^3 (test code 1.04 10*3/uL 1.32-3.29 L = 731-0) MONO x10^3 (test code 0.46 10*3/uL 0.33-0.92 = 742-7) EOS x10^3 (test code = 0.03-0.39 L 711-2) BASO x10^3 (test code 0.01-0.07 = 704-7) Lab Interpretation Abnormal (test code = 39069-6) [facility]BILI [id number] 12:16:18 Test Item Value Reference Range Interpretation Comments BILI CONJ (test code = 3338109572) 0.0 mg/dL 0.0-0.3 BILI UNCON (test code = 1071560808) 0.2 mg/dL 0.1-1.1 Lab Interpretation (test code = Normal 58014-4) [facility] GLUCOSE (AUTOMATED)2022-08-07 10:20:14 Test Item Value Reference Range Interpretation Comments POCT GLU (test code = 9608444750) 227 mg/dL 70-110 H Lab Interpretation (test code = Abnormal 94140-5) [facility] GLUCOSE (AUTOMATED)2022-08-07 05:43:17 Test Item Value Reference Range Interpretation Comments POCT GLU (test code = 6084943752) 162 mg/dL 70-110 H Lab Interpretation (test code = Abnormal 57767-5) [facility] GLUCOSE (AUTOMATED)2022-08-07 02:28:42 Test Item Value Reference Range Interpretation Comments POCT GLU (test code = 0629217619) 229 mg/dL 70-110 H Lab Interpretation (test code = Abnormal 14003-4) [facility] GLUCOSE (AUTOMATED)2022-08-06 17:18:17 Test Item Value Reference Range Interpretation Comments POCT GLU (test code = 2643766710) 223 mg/dL 70-110 H Lab Interpretation (test code = Abnormal 14080-7) [facility] HospitalLava[facility] Acid Whole [id number] 13:38:44 Test Item Value Reference Range Interpretation Comments LACTIC ACID (test code = 1.93 mmol/L 0.50-2.20 6764084540) Lab Interpretation (test code = Normal 16222-9) [facility] GLUCOSE (AUTOMATED)2022-08-06 13:29:26 Test Item Value Reference Range Interpretation Comments POCT GLU (test code = 4533566902) 261 mg/dL 70-110 H Lab Interpretation (test code = Abnormal 43233-3) [facility] [id number] 12:40:18 Test Item Value Reference Interpretation Comments Range TROPONIN I (test 0.002 ng/mL See_Comment [Automated code = 9377831779) message] The system which generated this result [...] biotin. Lab Interpretation Normal (test code = 67572-0) [facility] [id number] 12:37:16 Test Item Value Reference Range Interpretation Comments NT-proBNP (test code 480 pg/mL See_Comment H [Autom ated = 4732866428) message] The system which generated this result transmitted reference range : <=125. The reference range was not used to interpret this result as normal/abnormal . JENNIFFER (test code = JENNIFFER) Biotin has been reported to cause a negative bias, interpret results relative to patient's use of biotin. Lab Interpretation Abnormal (test code = 36857-4) [facility] (11048)2022-08-06 12:28:53 Test Item Value Reference Range Interpretation Comments NA (test code = 136 mmol/L 135-145 3913795130) K (test code = 4.3 mmol/L 3.5-5.0 9790769481) CL (test code = 99 mmol/L 98-108 5154796601) CO2 TOTAL (test code = 36 mmol/L 23-31 H 7817327303) AGAP (test code = 2-16 L 3882373741) BUN (test code = 30 mg/dL 7-23 H 8218457692) GLUCOSE (test code = 246 mg/dL 70-110 H 4033037970) CREATININE (test code = 0.94 mg/dL 0.50-1.04 8726210656) TOTAL BILI (test code = 0.5 mg/dL 0.1-1.8 2377775119) CALCIUM (test code = 8.6 mg/dL 8.6-10.6 5595668281) T PROTEIN (test code = 5.9 g/dL 6.3-8.2 L 3456683413) ALBUMIN (test code = 3.2 g/dL 3.5-5.0 L 8574160368) ALK PHOS (test code = 81 U/L 34-122 4663226806) ALTv (test code = 24 U/L 5-35 1742-6) AST(SGOT) (test code = 23 U/L 13-40 5090944539) eGFR (test code = mL/min/1.73m2 9208871937) JENNIFFER (test code = JENNIFFER) Association of [...] tests). Lab Interpretation Abnormal (test code = 01950-1) [facility] 12:28:53 Test Item Value Reference Range Interpretation Comments MAGNESIUM (test code = 5378181296) 2.2 mg/dL 1.7-2.4 Lab Interpretation (test code = Normal 13491-1) [facility] 12:28:33 Test Item Value Reference Range Interpretation Comments PHOSPHORUS (test code = 4658836256) 2.9 mg/dL 2.5-5.0 Lab Interpretation (test code = Normal 00494-9) [facility]CREAT[facility] [id number] 12:28:13 Test Item Value Reference Range Interpretation Comments CK (test code = 0478464667) 21 U/L 33-194 L Lab Interpretation (test code = Abnormal 28818-0) [facility] GLUCOSE (AUTOMATED)2022-08-06 11:29:35 Test Item Value Reference Range Interpretation Comments POCT GLU (test code = 5196930993) 275 mg/dL 70-110 H Lab Interpretation (test code = Abnormal 80034-7) [facility] GLUCOSE (AUTOMATED)2022-08-06 06:56:17 Test Item Value Reference Range Interpretation Comments POCT GLU (test code = 4873409242) 248 mg/dL 70-110 H Lab Interpretation (test code = Abnormal 79303-6) [facility] GLUCOSE (AUTOMATED)2022-08-06 02:34:33 Test Item Value Reference Range Interpretation Comments POCT GLU (test code = 6491062500) 255 mg/dL 70-110 H Lab Interpretation (test code = Abnormal 06040-3) [facility] GLUCOSE (AUTOMATED)2022-08-05 23:01:47 Test Item Value Reference Range Interpretation Comments POCT GLU (test code = 8225740277) 277 mg/dL 70-110 H Lab Interpretation (test code = Abnormal 23736-0) [facility] [id number] 22:36:41 Test Item Value Reference Interpretation Comments Range TROPONIN I (test 0.001 ng/mL See_Comment [Automated code = 9983601817) message] The system which generated this result [...] biotin. Lab Interpretation Normal (test code = 74705-7) [facility] GLUCOSE (AUTOMATED)2022-08-05 17:57:05 Test Item Value Reference Range Interpretation Comments POCT GLU (test code = 1569703704) 306 mg/dL 70-110 H Lab Interpretation (test code = Abnormal 22141-2) [facility] GLUCOSE (AUTOMATED)2022-08-05 13:44:12 Test Item Value Reference Range Interpretation Comments POCT GLU (test code = 9171130914) 376 mg/dL 70-110 H Lab Interpretation (test code = Abnormal 37993-0) [id number] 04:02:57 Test Item Value Reference Interpretation Comments Range TROPONIN I (test 0.001 ng/mL See_Comment [Automated code = 3015573643) message] The system which generated this result [...] biotin. Lab Interpretation Normal (test code = 87951-0) [facility] [id number] 03:59:58 Test Item Value Reference Range Interpretation Comments NT-proBNP (test code 100 pg/mL See_Comment [Autom ated = 5796399343) message] The system which generated this result transmitted reference range : <=125. The reference range was not used to interpret this result as normal/abnormal . JENNIFFER (test code = JENNIFFER) Biotin has been reported to cause a negative bias, interpret results relative to patient's use of biotin. Lab Interpretation Normal (test code = 81419-4) [facility] (69843)2022-06-05 03:50:53 Test Item Value Reference Range Interpretation Comments NA (test code = 139 mmol/L 135-145 2847920791) K (test code = 5.0 mmol/L 3.5-5.0 7112774532) CL (test code = 96 mmol/L 98-108 L 7586477265) CO2 TOTAL (test code = 38 mmol/L 23-31 H 5816361389) AGAP (test code = 2-16 9699184589) BUN (test code = 19 mg/dL 7-23 7034451316) GLUCOSE (test code = 186 mg/dL 70-110 H 3074600137) CREATININE (test code = 0.83 mg/dL 0.50-1.04 6942261509) TOTAL BILI (test code = 0.8 mg/dL 0.1-1.4 2881417249) CALCIUM (test code = 8.9 mg/dL 8.6-10.6 7788107130) T PROTEIN (test code = 7.4 g/dL 6.3-8.2 8528938927) ALBUMIN (test code = 4.3 g/dL 3.5-5.0 8128471942) ALK PHOS (test code = 102 U/L 34-122 1089847474) ALTv (test code = 33 U/L 5-35 1742-6) AST(SGOT) (test code = 40 U/L 13-40 9699361690) eGFR (test code = mL/min/1.73m2 7083814813) JENNIFFER (test code = JENNIFFER) Association of [...] tests). Lab Interpretation Abnormal (test code = 63242-0) [facility] WITH [id number] 03:35:15 Test Item Value Reference Range Interpretation Comments WBC (test code = See_Comment [Automated 1478-2) message] The sy stem which generated this result transmitted reference range : 4.30 - 11.10 10*3/?L. The reference range was not used to interpret this result as normal/abnormal . RBC (test code = See_Comment [Automated 861-2) message] The sy stem which generated this [...] RDW-SD (test code = 49.0 fL 39.0-49.9 43738-3) RDW-CV (test code = 15.4 % 12.0-15.5 788-0) PLT (test code = See_Comment [Automated 777-3) message] The sy stem which generated this result transmitted reference range : 166 - 358 10*3/ ?L. The reference r josselyn was not used to interpret this result as normal/abnormal . MPV (test code = 9.0 fL 9.5-12.9 L 65696-8) NRBC/100 WBC (test See_Comment [Automat ed code = 9072797676) message] The system which generated this result transmitted reference range : 0.0 - 10.0 /100 WBCs. The refer ence range was not u sed to interpret th is result as normal/abnormal . NRBC x10^3 (test code See_Comment [Auto mated = 8658022026) message] The s ystem which generated this result transmitted reference range : 10*3/?L. The reference range was not used to interpret this result as normal/abnormal . GRAN MAT (NEUT) % 85.5 % (test code = 770-8) IMM GRAN % (test code 0.60 % = 5560880823) LYMPH % (test code = 7.7 % 736-9) MONO % (test code = 4.0 % 5905-5) EOS % (test code = 1.6 % 713-8) BASO % (test code = 0.6 % 706-2) GRAN MAT x10^3(ANC) 8.05 10*3/uL 1.88-7.09 H (test code = 1484316615) IMM GRAN x10^3 (test 0.06 10*3/uL 0.00-0.06 code = 0058845216) LYMPH x10^3 (test code 0.73 10*3/uL 1.32-3.29 L = 731-0) MONO x10^3 (test code 0.38 10*3/uL 0.33-0.92 = 742-7) EOS x10^3 (test code = 0.15 10*3/uL 0.03-0.39 711-2) BASO x10^3 (test code 0.06 10*3/uL 0.01-0.07 = 704-7) Lab Interpretation Abnormal (test code = 54702-1) [facility] [id number] 06:26:12 Test Item Value Reference Interpretation Comments Range TROPONIN I (test 0.002 ng/mL See_Comment [Automated code = 4791332829) message] The system which generated this result [...] biotin. Lab Interpretation Normal (test code = 72261-7) [facility] [id number] 06:23:11 Test Item Value Reference Range Interpretation Comments NT-proBNP (test code 81 pg/mL See_Comment [Autom ated = 4728321779) message] The system which generated this result transmitted reference range : <=125. The reference range was not used to interpret this result as normal/abnormal . JENNIFFER (test code = JENNIFFER) Biotin has been reported to cause a negative bias, interpret results relative to patient's use of biotin. Lab Interpretation Normal (test code = 41095-9) [facility] + LACTIC [id number] 06:21:05 Test Item Value Reference Range Interpretation Comments PH (test code = 7.32-7.42 L 0917228259) PCO2 CELIA (test code = See_Comment H [Auto mated 8591726364) message] The sy stem which generated this result transmitted reference range : 41 - 51 mmHg. The reference range was not used to interpret this result as normal/abnormal . PO2 CELIA (test code = See_Comment L [Autom ated 3767127370) message] The sy stem which generated this result transmitted reference range : 25 - 40 mmHg. The reference range was not used to interpret this result as normal/abnormal . HCO3 CELIA (test code = See_Comment H [Auto mated 5540718488) message] The sy stem which generated this result transmitted reference range : 24 - 28 mEq/L. The reference range was not used to interpret this result as normal/abnormal . AC VBE(BEAKER) (test mEq/L code = 0329853086) THB CELIA (test code = 12.3 g/dL 12-16 9232316163) %O2HB CELIA (test code = 38.2 % 52-63 L 6469189695) %COHB CELIA (test code = 0.7 % 0-1.5 6904403930) %METHB CELIA (test code = 0.3 % 0.4-1.5 L 7089229906) VOL%O2 CELIA (test code = 6.6 % 6-12 7504814849) NA (test code = 138 mmol/L 135-145 9541247443) K+ (test code = 4.2 mmol/L 3.5-5 6879654727) AC CA IONZ (test code = 4.70 mg/dL 4.5-5.3 6008372363) GLUCOSE (test code = 178 mg/dL 70-110 H 6055437685) LACTIC ACID (test code 1.11 mmol/L 0.5-2.2 = 8306205107) Lab Interpretation Abnormal (test code = 77738-7) [facility]. METABOLIC PANEL (09966)2022-05-02 06:14:48 Test Item Value Reference Range Interpretation Comments NA (test code = 140 mmol/L 135-145 3664465001) K (test code = 4.4 mmol/L 3.5-5 0486617024) CL (test code = 97 mmol/L 98-108 L 8186193526) CO2 TOTAL (test code = 35 mmol/L 23-31 H 4955916323) AGAP (test code = 2-16 2589124288) BUN (test code = 23 mg/dL 7-23 9660875261) GLUCOSE (test code = 185 mg/dL 70-110 H 0524320866) CREATININE (test code = 1.16 mg/dL 0.5-1.04 H 0945438721) TOTAL BILI (test code = 0.4 mg/dL 0.1-1.0 3673460197) CALCIUM (test code = 9.4 mg/dL 8.6-10.6 4333943828) T PROTEIN (test code = 7.3 g/dL 6.3-8.2 6931253188) ALBUMIN (test code = 4.4 g/dL 3.5-5 4478134269) ALK PHOS (test code = 112 U/L 34-122 7010436220) ALTv (test code = 47 U/L 5-35 H 1742-6) AST(SGOT) (test code = 47 U/L 13-40 H 7721893765) eGFR (test code = mL/min/1.73m2 1114185320) JENNIFFER (test code = JENNIFFER) Association of [...] tests). Lab Interpretation Abnormal (test code = 25050-7) [facility] Test Item Value Reference Range Interpretation Comments MAGNESIUM (test code = 7749131384) 2.5 mg/dL 1.7-2.4 H Lab Interpretation (test code = Abnormal 55469-8) [facility] WITH [id number] 05:53:47 Test Item Value Reference Range Interpretation Comments WBC (test code = See_Comment [Automated 3753-2) message] The sy stem which generated this result transmitted reference range : 4.30 - 11.10 10*3/?L. The reference range was not used to interpret this result as normal/abnormal . RBC (test code = See_Comment [Automated 570-8) message] The sy stem which generated this [...] RDW-SD (test code = 47.2 fL 39-49.9 98750-4) RDW-CV (test code = 14.8 % 12-15.5 788-0) PLT (test code = See_Comment [Automated 027-3) message] The sy stem which generated this result transmitted reference range : 166 - 358 10*3/ ?L. The reference r josselyn was not used to interpret this result as normal/abnormal . MPV (test code = 9.1 fL 9.5-12.9 L 54870-6) NRBC/100 WBC (test See_Comment [Automat ed code = 0405243122) message] The system which generated this result transmitted reference range : 0.0 - 10.0 /100 WBCs. The refer ence range was not u sed to interpret th is result as normal/abnormal . NRBC x10^3 (test code See_Comment [Auto mated = 9151290336) message] The s ystem which generated this result transmitted reference range : 10*3/?L. The reference range was not used to interpret this result as normal/abnormal . GRAN MAT (NEUT) % 82.2 % (test code = 770-8) IMM GRAN % (test code 0.40 % = 3154902727) LYMPH % (test code = 10.2 % 736-9) MONO % (test code = 4.4 % 5905-5) EOS % (test code = 1.8 % 713-8) BASO % (test code = 1.0 % 706-2) GRAN MAT x10^3(ANC) 6.37 10*3/uL 1.88-7.09 (test code = 3749099371) IMM GRAN x10^3 (test 0.03 10*3/uL 0-0.06 code = 7393906521) LYMPH x10^3 (test code 0.79 10*3/uL 1.32-3.29 L = 731-0) MONO x10^3 (test code 0.34 10*3/uL 0.33-0.92 = 742-7) EOS x10^3 (test code = 0.14 10*3/uL 0.03-0.39 711-2) BASO x10^3 (test code 0.08 10*3/uL 0.01-0.07 H = 704-7) Lab Interpretation Abnormal (test code = 62146-1) [id number] 03:36:53 Test Item Value Reference Range Interpretation Comments NT-proBNP (test code 102 pg/mL See_Comment [Autom ated = 0772227332) message] The system which generated this result transmitted reference range : <=125. The reference range was not used to interpret this result as normal/abnormal . JENNIFFER (test code = JENNIFFER) Biotin has been reported to cause a negative bias, interpret results relative to patient's use of biotin. Lab Interpretation Normal (test code = 04617-1) [id number] 03:23:03 Test Item Value Reference Interpretation Comments Range TROPONIN I (test See_Comment [Automated code = 0191348941) message] The system which generated this result [...] biotin. Lab Interpretation Normal (test code = 43200-4) [facility]. METABOLIC PANEL (34233)2022-04-29 03:11:22 Test Item Value Reference Range Interpretation Comments NA (test code = 139 mmol/L 135-145 6611139293) K (test code = 4.6 mmol/L 3.5-5 7727074385) CL (test code = 94 mmol/L 98-108 L 5116785445) CO2 TOTAL (test code = 36 mmol/L 23-31 H 8348573775) AGAP (test code = 2-16 8021887707) BUN (test code = 23 mg/dL 7-23 0542132612) GLUCOSE (test code = 271 mg/dL 70-110 H 4891891534) CREATININE (test code = 0.91 mg/dL 0.5-1.04 9875942120) TOTAL BILI (test code = 0.5 mg/dL 0.1-1.2 6983218902) CALCIUM (test code = 9.3 mg/dL 8.6-10.6 4849490557) T PROTEIN (test code = 7.3 g/dL 6.3-8.2 8238997945) ALBUMIN (test code = 4.5 g/dL 3.5-5 0451150819) ALK PHOS (test code = 137 U/L 34-122 H 0497277985) ALTv (test code = 39 U/L 5-35 H 2-6) AST(SGOT) (test code = 34 U/L 13-40 7192491667) eGFR (test code = mL/min/1.73m2 2661928534) JENNIFFER (test code = JENNIFFER) Association of [...] tests). Lab Interpretation Abnormal (test code = 76110-0) [facility] [id number] 03:09:40 Test Item Value Reference Range Interpretation Comments APTT Patient (test See_Comment [Automat ed code = 3173-2) message] The system which generated this result transmitted reference range : 23 - 38 Seconds . The reference range was not used to interpr et this result as normal/abnormal . JENNIFFER (test code = JENNIFFER) The [facility] patient population mean normal value for aPTT is 30 seconds. Lab Interpretation Normal (test code = 35204-6) [facility] / [id number] 03:07:39 Test Item Value Reference Range Interpretation [...] tions. Lab Interpretation (test Normal code = 74417-5) [facility] WITH [id number] 02:58:01 Test Item Value Reference Range Interpretation Comments WBC (test code = See_Comment H [Automated 7090-2) message] The system which generated this result transmit alden reference range : 4.30 - 11.10 10*3/?L. The reference range was not used to interpret this result as normal/abnormal . RBC (test code = See_Comment [Automated 119-8) message] The system which generated this result [...] RDW-SD (test code = 47.9 fL 39-49.9 35974-3) RDW-CV (test code = 14.8 % 12-15.5 788-0) PLT (test code = See_Comment [Automated 777-3) message] The system which generated this result transmit alden reference range : 166 - 358 10*3/ ?L. The reference range was not u sed to interpret th is result as normal/abnormal . MPV (test code = 9.0 fL 9.5-12.9 L 86982-1) NRBC/100 WBC (test See_Comment [Automat ed code = 8000319265) message] The system which generated this result transmit alden reference range : 0.0 - 10.0 /100 WBCs. The reference range was not used to interpret this result as normal/abnormal . NRBC x10^3 (test code See_Comment [Auto mated = 1860678785) message] The system which generated this result transmit alden reference range : 10*3/?L. The reference range was not used to interpret this result as normal/abnormal . GRAN MAT (NEUT) % 85.4 % (test code = 770-8) IMM GRAN % (test code 0.40 % = 8718469574) LYMPH % (test code = 7.5 % 736-9) MONO % (test code = 5.0 % 5905-5) EOS % (test code = 1.1 % 713-8) BASO % (test code = 0.6 % 706-2) GRAN MAT x10^3(ANC) 10.20 10*3/uL 1.88-7.09 H (test code = 7321679259) IMM GRAN x10^3 (test 0.05 10*3/uL 0-0.06 code = 0159621111) LYMPH x10^3 (test code 0.89 10*3/uL 1.32-3.29 L = 731-0) MONO x10^3 (test code 0.60 10*3/uL 0.33-0.92 = 742-7) EOS x10^3 (test code = 0.13 10*3/uL 0.03-0.39 711-2) BASO x10^3 (test code 0.07 10*3/uL 0.01-0.07 = 704-7) Lab Interpretation Abnormal (test code = 14888-4) [facility] GLUCOSE (AUTOMATED)2022-02-27 20:32:53 Test Item Value Reference Range Interpretation Comments POCT GLU (test code = 1710934508) 236 mg/dL 70-110 H Lab Interpretation (test code = Abnormal 02940-8) [facility] GLUCOSE (AUTOMATED)2022-02-27 16:22:28 Test Item Value Reference Range Interpretation Comments POCT GLU (test code = 9431691832) 242 mg/dL 70-110 H Lab Interpretation (test code = Abnormal 85851-2) [facility] GLUCOSE (AUTOMATED)2022-02-27 12:34:52 Test Item Value Reference Range Interpretation Comments POCT GLU (test code = 6411179053) 195 mg/dL 70-110 H Lab Interpretation (test code = Abnormal 89171-1) [facility] GLUCOSE (AUTOMATED)2022-02-26 21:43:40 Test Item Value Reference Range Interpretation Comments POCT GLU (test code = 4787749531) 315 mg/dL 70-110 H Lab Interpretation (test code = Abnormal 76318-4) [facility] GLUCOSE (AUTOMATED)2022-02-26 17:51:09 Test Item Value Reference Range Interpretation Comments POCT GLU (test code = 1403766197) 316 mg/dL 70-110 H Lab Interpretation (test code = Abnormal 93836-3) [facility] GLUCOSE (AUTOMATED)2022-02-26 14:27:56 Test Item Value Reference Range Interpretation Comments POCT GLU (test code = 2767533116) 226 mg/dL 70-110 H Lab Interpretation (test code = Abnormal 27710-3) [facility] [id number] 10:01:38 Test Item Value Reference Range Interpretation Comments Blood Culture-Aerobic No organisms No growth Previo us (test code = 58329-7) isolated prelim inary verified result was Culture [...] Culture-Anaerobic isolated preliminar y (test code = 08429-0) verifi ed result was Culture In Progress [...] CDT Lab Interpretation Normal (test code = 48291-9) [facility] GLUCOSE (AUTOMATED)2022-02-26 01:34:43 Test Item Value Reference Range Interpretation Comments POCT GLU (test code = 2911139403) 253 mg/dL 70-110 H Lab Interpretation (test code = Abnormal 18949-3) [facility] GLUCOSE (AUTOMATED)2022-02-25 20:41:07 Test Item Value Reference Range Interpretation Comments POCT GLU (test code = 6184361880) 260 mg/dL 70-110 H Lab Interpretation (test code = Abnormal 67454-9) [facility] GLUCOSE (AUTOMATED)2022-02-25 16:40:46 Test Item Value Reference Range Interpretation Comments POCT GLU (test code = 1155616585) 245 mg/dL 70-110 H Lab Interpretation (test code = Abnormal 00974-1) [facility] Arterial Blood Gas.2022-02-25 14:15:07 Test Item Value Reference Range Interpretation Comments PH (test code = 2) 7.35-7.45 H PCO2 (test code = See_Comment H [Automate d message] 5361461805) The system [employer] generated this result transmitted ref erence range: 35 - 45 mmHg. The reference r josselyn was not used to interpret this result as normal/abnor mal. PO2 (test code = See_Comment [Automated message] 1381757494) The system [employer] generated this result transmitted ref erence range: 80 - 100 mmHg. The reference r josselyn was not used to interpret this result as normal/abnor mal. HCO3 (test code = See_Comment H [Automate d message] 1679777690) The system [employer] generated this result transmitted ref erence range: 22 - 26 mEq/L. The reference r josselyn was not used to interpret this result as normal/abnor mal. BE (test code = See_Comment H [Automated message] 1454532452) The system [employer] generated this result transmitted ref erence range: -3.0 - 3 .0 mEq/L. The refe rence range was not u sed to interpret this result as normal/abnor mal. Lab Interpretation (test Abnormal code = 48437-4) [facility] GLUCOSE (AUTOMATED)2022-02-25 12:53:11 Test Item Value Reference Range Interpretation Comments POCT GLU (test code = 8435107392) 194 mg/dL 70-110 H Lab Interpretation (test code = Abnormal 70052-7) [facility] METABOLIC PANEL (NA, K, CL, CO2, GLUCOSE, BUN, CREATININE, CA)2022-02-25 12:18:22 Test Item Value Reference Range Interpretation Comments NA (test code = 135 mmol/L 135-145 6521971090) K (test code = 3.5 mmol/L 3.5-5 0508603542) CL (test code = 97 mmol/L 98-108 L 6085330692) CO2 TOTAL (test code = 37 mmol/L 23-31 H 6526926160) AGAP (test code = 2-16 L 8904113446) BUN (test code = 36 mg/dL 7-23 H 9676125477) GLUCOSE (test code = 172 mg/dL 70-110 H 8315105821) CREATININE (test code = 1.57 mg/dL 0.5-1.04 H 0047122328) CALCIUM (test code = 9.0 mg/dL 8.6-10.6 8150757261) eGFR (test code = mL/min/1.73m2 8184689480) JENNIFFER (test code = JENNIFFER) Association of [...] tests). Lab Interpretation Abnormal (test code = 87401-5) [facility] 12:18:22 Test Item Value Reference Range Interpretation Comments MAGNESIUM (test code = 9276553553) 1.7 mg/dL 1.7-2.4 Lab Interpretation (test code = Normal 09936-0) [facility] 12:18:22 Test Item Value Reference Range Interpretation Comments PHOSPHORUS (test code = 3380648812) 2.7 mg/dL 2.5-5 Lab Interpretation (test code = Normal 04020-2) [facility] GLUCOSE (AUTOMATED)2022-02-25 01:26:19 Test Item Value Reference Range Interpretation Comments POCT GLU (test code = 0167269796) 180 mg/dL 70-110 H Lab Interpretation (test code = Abnormal 51436-6) [facility] GLUCOSE (AUTOMATED)2022-02-24 20:51:23 Test Item Value Reference Range Interpretation Comments POCT GLU (test code = 6119237078) 206 mg/dL 70-110 H Lab Interpretation (test code = Abnormal 87202-9) [facility].2022-02-24 17:04:22 Test Item Value Reference Range Interpretation Comments PH (test code = 2) 7.35-7.45 H PCO2 (test code = See_Comment [Automate d message] 3799426995) The system [employer] generated this result transmitted ref erence range: 35 - 45 mmHg. The reference r josselyn was not used to interpret this result as normal/abnor mal. PO2 (test code = See_Comment H [Automated message] 4644830718) The system [employer] generated this result transmitted ref erence range: 80 - 100 mmHg. The reference r josselyn was not used to interpret this result as normal/abnor mal. HCO3 (test code = See_Comment H [Automate d message] 9235045897) The system [employer] generated this result transmitted ref erence range: 22 - 26 mEq/L. The reference r josselyn was not used to interpret this result as normal/abnor mal. BE (test code = See_Comment H [Automated message] 8665700849) The system [employer] generated this result transmitted ref erence range: -3.0 - 3 .0 mEq/L. The refe rence range was not u sed to interpret this result as normal/abnor mal. Lab Interpretation (test Abnormal code = 41806-9) [facility] 17:00:46 Test Item Value Reference Range Interpretation Comments POCT GLU (test code = 5278986085) 230 mg/dL 70-110 H Lab Interpretation (test code = Abnormal 19119-4) [facility] [id number] 13:31:58 Test Item Value Reference Interpretation Comments Range TROPONIN I (test 0.002 ng/mL See_Comment [Automated code = 9080575529) message] The system which generated this result [...] biotin. Lab Interpretation Normal (test code = 28419-2) [facility]2022-02-24 13:24:56 Test Item Value Reference Range Interpretation Comments POCT GLU (test code = 8447630280) 252 mg/dL 70-110 H Lab Interpretation (test code = Abnormal 30085-0) [facility] METABOLIC PANEL (NA, K, CL, CO2, GLUCOSE, BUN, CREATININE, CA)2022-02-24 13:21:38 Test Item Value Reference Range Interpretation Comments NA (test code = 138 mmol/L 135-145 7711611017) K (test code = 4.3 mmol/L 3.5-5 4290135604) CL (test code = 94 mmol/L 98-108 L 0127234940) CO2 TOTAL (test code = 39 mmol/L 23-31 H 8993943057) AGAP (test code = 2-16 5734897714) BUN (test code = 31 mg/dL 7-23 H 0590126562) GLUCOSE (test code = 237 mg/dL 70-110 H 3762534540) CREATININE (test code = 1.46 mg/dL 0.5-1.04 H 4139915757) CALCIUM (test code = 9.2 mg/dL 8.6-10.6 9854981784) eGFR (test code = mL/min/1.73m2 7881758635) JENNIFFER (test code = JENNIFFER) Association of [...] tests). Lab Interpretation Abnormal (test code = 36237-7) [facility] Whole [id number] 03:18:42 Test Item Value Reference Range Interpretation Comments LACTIC ACID (test code = 0.92 mmol/L 0.5-2.2 3032485703) Lab Interpretation (test code = Normal 84493-8) [facility] GLUCOSE (AUTOMATED)2022-02-24 01:21:36 Test Item Value Reference Range Interpretation Comments POCT GLU (test code = 2290177611) 200 mg/dL 70-110 H Lab Interpretation (test code = Abnormal 13347-1) [facility] GLUCOSE (AUTOMATED)2022-02-23 22:45:38 Test Item Value Reference Range Interpretation Comments POCT GLU (test code = 6299642321) 246 mg/dL 70-110 H Lab Interpretation (test code = Abnormal 19287-9) [facility] GLUCOSE (AUTOMATED)2022-02-23 21:47:33 Test Item Value Reference Range Interpretation Comments POCT GLU (test code = 261 mg/dL 70-110 H Notifi ed Provider 1273993515) Lab Interpretation (test Abnormal code = 47408-4) [facility] + Lactic [id number] 18:40:55 Test Item Value Reference Range Interpretation Comments PH (test code = 2) 7.35-7.45 PCO2 (test code = See_Comment H [Automate d 8381365858) message] The sy stem which generated this result transmitted reference range : 35 - 45 mmHg. The reference range was not used to interpret this result as normal/abnormal . PO2 (test code = See_Comment H [Automated 5831262601) message] The sy stem which generated this result transmitted reference range : 80 - 100 mmHg. The reference range was not used to interpret this result as normal/abnormal . HCO3 (test code = See_Comment H [Automate d 2585931388) message] The sy stem which generated this result transmitted reference range : 22 - 26 mEq/L. The reference range was not used to interpret this result as normal/abnormal . BE (test code = See_Comment H [Automated 1186332476) message] The sy stem which generated this result transmitted reference range : -3.0 - 3.0 mEq/ L. The reference r josselyn was not used to interpret this result as normal/abnormal . THB (test code = 10.1 g/dL 12-16 L 0558846025) %O2HB (test code = 98.2 % 94-99 3258145954) %COHB ART (test code = 0.0 % 0-1.5 7049348419) %METHB ART (test code = 0.2 % 0.4-1.5 L 8200693392) VOL%O2 ART (test code = 14.2 % 15-23 L 7430567477) NA (test code = 142 mmol/L 135-145 9909619402) K+ (test code = 3.9 mmol/L 3.5-5 9727554069) AC CA IONZ (test code = 4.60 mg/dL 4.5-5.3 1469954812) GLUCOSE (test code = 201 mg/dL 70-110 H 1011699750) LACTIC ACID (test code 0.99 mmol/L 0.5-2.2 = 1938954366) Lab Interpretation Abnormal (test code = 91060-4) [facility] GLUCOSE (AUTOMATED)2022-02-23 17:20:26 Test Item Value Reference Range Interpretation Comments POCT GLU (test code = 222 mg/dL 70-110 H Notifi ed Provider 0585544888) Lab Interpretation (test Abnormal code = 02713-2) [facility] GLUCOSE (AUTOMATED)2022-02-23 13:23:49 Test Item Value Reference Range Interpretation Comments POCT GLU (test code = 188 mg/dL 70-110 H Notifi ed Provider 0979606052) Lab Interpretation (test Abnormal code = 14831-9) [facility] GLUCOSE (AUTOMATED)2022-02-22 21:57:50 Test Item Value Reference Range Interpretation Comments POCT GLU (test code = 9899987070) 240 mg/dL 70-110 H Lab Interpretation (test code = Abnormal 74662-5) [facility] GLUCOSE (AUTOMATED)2022-02-22 18:33:41 Test Item Value Reference Range Interpretation Comments POCT GLU (test code = 1211554073) 247 mg/dL 70-110 H Lab Interpretation (test code = Abnormal 72998-8) [facility] [id number] 15:54:13 Test Item Value Reference Range Interpretation Comments URINE CULTURE (test No aerobic growth (< code = 630-4) 1000 CFU/mL) [facility] (NA, K, CL, CO2, GLUCOSE, BUN, CREATININE, CA)2022-02-22 13:03:42 Test Item Value Reference Range Interpretation Comments NA (test code = 140 mmol/L 135-145 1389033674) K (test code = 3.7 mmol/L 3.5-5 0942763365) CL (test code = 95 mmol/L 98-108 L 8454911517) CO2 TOTAL (test code = 40 mmol/L 23-31 H 6709046330) AGAP (test code = 2-16 7657904624) BUN (test code = 19 mg/dL 7-23 3280775536) GLUCOSE (test code = 167 mg/dL 70-110 H 2745212863) CREATININE (test code = 0.85 mg/dL 0.5-1.04 5470641368) CALCIUM (test code = 9.0 mg/dL 8.6-10.6 0094993514) eGFR (test code = mL/min/1.73m2 2446547404) JENNIFFER (test code = JENNIFFER) Association of [...] tests). Lab Interpretation Abnormal (test code = 95923-2) [facility] 12:14:43 Test Item Value Reference Range Interpretation Comments MAGNESIUM (test code = 1399167002) 2.3 mg/dL 1.7-2.4 Lab Interpretation (test code = Normal 19008-4) [facility] WITH [id number] 11:52:02 Test Item Value Reference Range Interpretation Comments WBC (test code = See_Comment [Automated 6957-2) message] The sy stem which generated this result transmitted reference range : 4.30 - 11.10 10*3/?L. The reference range was not used to interpret this result as normal/abnormal . RBC (test code = See_Comment L [Automated 292-8) message] The sy stem which generated this [...] RDW-SD (test code = 48.7 fL 39-49.9 80887-8) RDW-CV (test code = 15.2 % 12-15.5 788-0) PLT (test code = See_Comment [Automated 777-3) message] The sy stem which generated this result transmitted reference range : 166 - 358 10*3/ ?L. The reference r josselyn was not used to interpret this result as normal/abnormal . MPV (test code = 8.9 fL 9.5-12.9 L 42043-8) NRBC/100 WBC (test See_Comment [Automat ed code = 3660298233) message] The system which generated this result transmitted reference range : 0.0 - 10.0 /100 WBCs. The refer ence range was not u sed to interpret th is result as normal/abnormal . NRBC x10^3 (test code See_Comment [Auto mated = 2330230760) message] The s ystem which generated this result transmitted reference range : 10*3/?L. The reference range was not used to interpret this result as normal/abnormal . GRAN MAT (NEUT) % 70.5 % (test code = 770-8) IMM GRAN % (test code 0.70 % = 9451827051) LYMPH % (test code = 18.8 % 736-9) MONO % (test code = 7.9 % 5905-5) EOS % (test code = 1.2 % 713-8) BASO % (test code = 0.9 % 706-2) GRAN MAT x10^3(ANC) 4.04 10*3/uL 1.88-7.09 (test code = 6619184844) IMM GRAN x10^3 (test 0.04 10*3/uL 0-0.06 code = 7576071398) LYMPH x10^3 (test code 1.08 10*3/uL 1.32-3.29 L = 731-0) MONO x10^3 (test code 0.45 10*3/uL 0.33-0.92 = 742-7) EOS x10^3 (test code = 0.07 10*3/uL 0.03-0.39 711-2) BASO x10^3 (test code 0.05 10*3/uL 0.01-0.07 = 704-7) Lab Interpretation Abnormal (test code = 07603-6) [facility] GLUCOSE (AUTOMATED)2022-02-22 01:40:53 Test Item Value Reference Range Interpretation Comments POCT GLU (test code = 3182120028) 246 mg/dL 70-110 H Lab Interpretation (test code = Abnormal 58071-3) [facility] GLUCOSE (AUTOMATED)2022-02-21 22:04:44 Test Item Value Reference Range Interpretation Comments POCT GLU (test code = 0310316744) 293 mg/dL 70-110 H Lab Interpretation (test code = Abnormal 82427-1) [facility] WITHOUT [id number] 16:03:44 Test Item Value Reference Range Interpretation Comments WBC (test code = 6690-2) See_Comment [A utomated message] The system [employer] generated this result transmit alden reference range : 4.30 - 11.10 10*3/?L. The reference range was not used to interpret this result as normal/abnormal . RBC (test code = 789-8) See_Comment L [Au tomated message] The system [employer] generated this result transmit alden reference range [...] 777-3) See_Comment [Au tomated message] The system whic h generated this result transmit alden reference range : 166 - 358 10*3/?L. The reference range was not used to interpret this result as normal/abnormal . MPV (test code = 9.2 fL 9.5-12.9 L 06728-4) RDW-CV (test code = 15.7 % 12-15.5 H 788-0) RDW-SD (test code = 50.9 fL 39-49.9 H 31163-3) NRBC x10^3 (test code = See_Comment [Au tomated message] 7285704001) The system [facility] h generated this result transmit alden reference range : 10*3/?L. The reference range was not used to interpret this result as normal/abnormal . NRBC/100 WBC (test code See_Comment [Au tomated message] = 1794248548) The system [facility] generated this result transmit alden reference range : 0.0 - 10.0 /100 WBC s. The reference r josselyn was not used to interpret this result as normal/abnormal . IPF % (test code = 0831277273) Lab Interpretation (test Abnormal code = 06921-5) [facility] GLUCOSE (AUTOMATED)2022-02-21 14:46:08 Test Item Value Reference Range Interpretation Comments POCT GLU (test code = 5360085949) 157 mg/dL 70-110 H Lab Interpretation (test code = Abnormal 21342-0) [facility] METABOLIC PANEL (NA, K, CL, CO2, GLUCOSE, BUN, CREATININE, CA)2022-02-21 09:05:34 Test Item Value Reference Range Interpretation Comments NA (test code = 143 mmol/L 135-145 7025643604) K (test code = 3.8 mmol/L 3.5-5 1006847374) CL (test code = 99 mmol/L 98-108 3554474338) CO2 TOTAL (test code = 37 mmol/L 23-31 H 3178928990) AGAP (test code = 2-16 7338993408) BUN (test code = 17 mg/dL 7-23 9694688144) GLUCOSE (test code = 140 mg/dL 70-110 H 3586031424) CREATININE (test code = 0.85 mg/dL 0.5-1.04 8416557151) CALCIUM (test code = 8.9 mg/dL 8.6-10.6 8605856560) eGFR (test code = mL/min/1.73m2 9732594809) JENNIFFER (test code = JENNIFFER) Association of [...] tests). Lab Interpretation Abnormal (test code = 24910-8) [facility] Test Item Value Reference Range Interpretation Comments MAGNESIUM (test code = 1941146934) 2.3 mg/dL 1.7-2.4 Lab Interpretation (test code = Normal 83282-5) [facility] WITH [id number] 08:13:50 Test Item Value Reference Range Interpretation [...] (test code = 51.5 fL 39-49.9 H 89918-2) RDW-CV (test code = 15.5 % 12-15.5 788-0) PLT (test code = See_Comment L [Automated 777-3) message] The sy stem which generated this result transmitted reference range : 166 - 358 10*3/ ?L. The reference r josselyn was not used to interpret this result as normal/abnormal . MPV (test code = 9.0 fL 9.5-12.9 L 64117-2) NRBC/100 WBC (test See_Comment [Automat ed code = 6117307253) message] The system which generated this result transmitted reference range : 0.0 - 10.0 /100 WBCs. The refer ence range was not u sed to interpret th is result as normal/abnormal . NRBC x10^3 (test code See_Comment [Auto mated = 7338840735) message] The s ystem which generated this result transmitted reference range : 10*3/?L. The reference range was not used to interpret this result as normal/abnormal . GRAN MAT (NEUT) % 68.2 % (test code = 770-8) IMM GRAN % (test code 0.60 % = 4858710002) LYMPH % (test code = 20.0 % 736-9) MONO % (test code = 8.1 % 5905-5) EOS % (test code = 2.0 % 713-8) BASO % (test code = 1.1 % 706-2) GRAN MAT x10^3(ANC) 3.72 10*3/uL 1.88-7.09 (test code = 0316453381) IMM GRAN x10^3 (test 0.03 10*3/uL 0-0.06 code = 5332819613) LYMPH x10^3 (test code 1.09 10*3/uL 1.32-3.29 L = 731-0) MONO x10^3 (test code 0.44 10*3/uL 0.33-0.92 = 742-7) EOS x10^3 (test code = 0.11 10*3/uL 0.03-0.39 711-2) BASO x10^3 (test code 0.06 10*3/uL 0.01-0.07 = 704-7) Lab Interpretation Abnormal (test code = 99237-5) [facility] 02:41:53 Test Item Value Reference Range Interpretation Comments POCT GLU (test code = 0574096778) 175 mg/dL 70-110 H Lab Interpretation (test code = Abnormal 01199-6) [facility] Arterial Blood Gas.2022-02-20 23:27:23 Test Item Value Reference Range Interpretation Comments PH (test code = 2) 7.35-7.45 L PCO2 (test code = See_Comment H [Automate d message] 0440618349) The system [employer] generated this result transmitted ref erence range: 35 - 45 mmHg. The reference r josselyn was not used to interpret this result as normal/abnor mal. PO2 (test code = See_Comment H [Automated message] 9823540013) The system [employer] generated this result transmitted ref erence range: 80 - 100 mmHg. The reference r josselyn was not used to interpret this result as normal/abnor mal. HCO3 (test code = See_Comment H [Automate d message] 7141734219) The system [employer] generated this result transmitted ref erence range: 22 - 26 mEq/L. The reference r josselyn was not used to interpret this result as normal/abnor mal. BE (test code = See_Comment H [Automated message] 7072404733) The system whic h generated this result transmitted ref erence range: -3.0 - 3 .0 mEq/L. The refe rence range was not u sed to interpret this result as normal/abnor mal. Lab Interpretation (test Abnormal code = 33798-9) [facility] WITH [id number] 20:32:34 Test Item Value Reference Range Interpretation [...] (test code = 51.8 fL 39-49.9 H 68672-7) RDW-CV (test code = 15.7 % 12-15.5 H 788-0) PLT (test code = See_Comment [Automated 777-3) message] The sy stem which generated this result transmitted reference range : 166 - 358 10*3/ ?L. The reference r josselyn was not used to interpret this result as normal/abnormal . MPV (test code = 8.9 fL 9.5-12.9 L 37517-7) NRBC/100 WBC (test See_Comment [Automat ed code = 4381496411) message] The system which generated this result transmitted reference range : 0.0 - 10.0 /100 WBCs. The refer ence range was not u sed to interpret th is result as normal/abnormal . NRBC x10^3 (test code See_Comment [Auto mated = 0504582816) message] The s ystem which generated this result transmitted reference range : 10*3/?L. The reference range was not used to interpret this result as normal/abnormal . GRAN MAT (NEUT) % 72.1 % (test code = 770-8) IMM GRAN % (test code 1.20 % = 0803828741) LYMPH % (test code = 16.2 % 736-9) MONO % (test code = 7.1 % 5905-5) EOS % (test code = 2.3 % 713-8) BASO % (test code = 1.1 % 706-2) GRAN MAT x10^3(ANC) 7.28 10*3/uL 1.88-7.09 H (test code = 8544159146) IMM GRAN x10^3 (test 0.12 10*3/uL 0-0.06 H code = 8013450826) LYMPH x10^3 (test code 1.63 10*3/uL 1.32-3.29 = 731-0) MONO x10^3 (test code 0.72 10*3/uL 0.33-0.92 = 742-7) EOS x10^3 (test code = 0.23 10*3/uL 0.03-0.39 711-2) BASO x10^3 (test code 0.11 10*3/uL 0.01-0.07 H = 704-7) Lab Interpretation Abnormal (test code = 91716-7) [facility] GLUCOSE (AUTOMATED)2022-02-17 21:46:17 Test Item Value Reference Range Interpretation Comments POCT GLU (test code = 6254895530) 181 mg/dL 70-110 H Lab Interpretation (test code = Abnormal 54230-9) [facility] GLUCOSE (AUTOMATED)2022-02-17 17:09:48 Test Item Value Reference Range Interpretation Comments POCT GLU (test code = 6964866491) 191 mg/dL 70-110 H Lab Interpretation (test code = Abnormal 94052-2) [facility] GLUCOSE (AUTOMATED)2022-02-17 13:07:24 Test Item Value Reference Range Interpretation Comments POCT GLU (test code = 5498869044) 185 mg/dL 70-110 H Lab Interpretation (test code = Abnormal 43810-1) [facility] Culture - Peripheral # [id number] 02:02:05 Test Item Value Reference Range Interpretation Comments Blood Culture-Aerobic No organisms No growth Previo us (test code = 55267-6) isolated prelim inary verified result was Culture [...] Culture-Anaerobic isolated preliminar y (test code = 75084-1) verifi ed result was Culture In Progress [...] CDT Lab Interpretation Normal (test code = 62304-6) [facility] GLUCOSE (AUTOMATED)2022-02-17 00:50:32 Test Item Value Reference Range Interpretation Comments POCT GLU (test code = 6408286034) 152 mg/dL 70-110 H Lab Interpretation (test code = Abnormal 04822-9) [facility] GLUCOSE (AUTOMATED)2022-02-16 21:47:16 Test Item Value Reference Range Interpretation Comments POCT GLU (test code = 3657655819) 183 mg/dL 70-110 H Lab Interpretation (test code = Abnormal 39263-3) [facility] GLUCOSE (AUTOMATED)2022-02-16 17:08:26 Test Item Value Reference Range Interpretation Comments POCT GLU (test code = 8294496907) 160 mg/dL 70-110 H Lab Interpretation (test code = Abnormal 81238-0) [facility] GLUCOSE (AUTOMATED)2022-02-16 13:06:01 Test Item Value Reference Range Interpretation Comments POCT GLU (test code = 5362241051) 140 mg/dL 70-110 H Lab Interpretation (test code = Abnormal 25389-9) [facility] GLUCOSE (AUTOMATED)2022-02-16 08:33:41 Test Item Value Reference Range Interpretation Comments POCT GLU (test code = 3601770678) 193 mg/dL 70-110 H Lab Interpretation (test code = Abnormal 22885-9) [facility] GLUCOSE (AUTOMATED)2022-02-16 04:30:38 Test Item Value Reference Range Interpretation Comments POCT GLU (test code = 6638576709) 167 mg/dL 70-110 H Lab Interpretation (test code = Abnormal 73725-8) [facility] GLUCOSE (AUTOMATED)2022-02-16 00:40:50 Test Item Value Reference Range Interpretation Comments POCT GLU (test code = 3414615168) 190 mg/dL 70-110 H Lab Interpretation (test code = Abnormal 11033-4) [facility] GLUCOSE (AUTOMATED)2022-02-15 21:26:07 Test Item Value Reference Range Interpretation Comments POCT GLU (test code = 1467474789) 189 mg/dL 70-110 H Lab Interpretation (test code = Abnormal 70943-6) [facility] GLUCOSE (AUTOMATED)2022-02-15 17:00:52 Test Item Value Reference Range Interpretation Comments POCT GLU (test code = 9554899832) 213 mg/dL 70-110 H Lab Interpretation (test code = Abnormal 92925-7) [facility] GLUCOSE (AUTOMATED)2022-02-15 12:48:04 Test Item Value Reference Range Interpretation Comments POCT GLU (test code = 2006669334) 145 mg/dL 70-110 H Lab Interpretation (test code = Abnormal 42498-1) [facility]. METABOLIC PANEL (43178)2022-02-15 08:28:08 Test Item Value Reference Range Interpretation Comments NA (test code = 140 mmol/L 135-145 4578011055) K (test code = 4.0 mmol/L 3.5-5 1792162628) CL (test code = 100 mmol/L 98-108 2595499755) CO2 TOTAL (test code = 35 mmol/L 23-31 H 6603972629) AGAP (test code = 2-16 4430333593) BUN (test code = 12 mg/dL 7-23 3628904641) GLUCOSE (test code = 161 mg/dL 70-110 H 3766424429) CREATININE (test code = 1.20 mg/dL 0.5-1.04 H 3058179661) TOTAL BILI (test code = 0.6 mg/dL 0.1-1.8 5828900977) CALCIUM (test code = 8.7 mg/dL 8.6-10.6 1750601092) T PROTEIN (test code = 6.8 g/dL 6.3-8.2 1570619915) ALBUMIN (test code = 3.7 g/dL 3.5-5 8521427048) ALK PHOS (test code = 121 U/L 34-122 5361454453) ALTv (test code = 35 U/L 5-35 2-6) AST(SGOT) (test code = 34 U/L 13-40 6332271067) eGFR (test code = mL/min/1.73m2 1154495416) JENNIFFER (test code = JENNIFFER) Association of [...] tests). Lab Interpretation Abnormal (test code = 30712-6) [facility] Test Item Value Reference Range Interpretation Comments MAGNESIUM (test code = 7374992045) 2.4 mg/dL 1.7-2.4 Lab Interpretation (test code = Normal 15768-4) [id number] 08:07:28 Test Item Value Reference Range Interpretation Comments WBC (test code = 6690-2) See_Comment [A utomated message] The system [employer] generated this result transmit alden reference range : 4.30 - 11.10 10*3/?L. The reference range was not used to interpret this result as normal/abnormal . RBC (test code = 789-8) See_Comment L [Au tomated message] The system [employer] generated this result transmit alden reference range [...] 777-3) See_Comment [Au tomated message] The system [employer] generated this result transmit alden reference range : 166 - 358 10*3/?L. The reference range was not used to interpret this result as normal/abnormal . MPV (test code = 8.9 fL 9.5-12.9 L 98903-3) RDW-CV (test code = 16.2 % 12-15.5 H 788-0) RDW-SD (test code = 52.6 fL 39-49.9 H 27020-5) NRBC x10^3 (test code = See_Comment [Au tomated message] 6772539687) The system [employer] generated this result transmit alden reference range : 10*3/?L. The reference range was not used to interpret this result as normal/abnormal . NRBC/100 WBC (test code See_Comment [Au tomated message] = 0104997264) The system [employer] generated this result transmit alden reference range : 0.0 - 10.0 /100 WBC s. The reference r josselyn was not used to interpret this result as normal/abnormal . IPF % (test code = 3866051814) Lab Interpretation (test Abnormal code = 98288-8) [facility] GLUCOSE (AUTOMATED)2022-02-15 08:03:53 Test Item Value Reference Range Interpretation Comments POCT GLU (test code = 8977918888) 179 mg/dL 70-110 H Lab Interpretation (test code = Abnormal 04574-5) [facility] GLUCOSE (AUTOMATED)2022-02-15 04:16:20 Test Item Value Reference Range Interpretation Comments POCT GLU (test code = 3723178449) 215 mg/dL 70-110 H Lab Interpretation (test code = Abnormal 45431-1) [facility] GLUCOSE (AUTOMATED)2022-02-15 00:50:30 Test Item Value Reference Range Interpretation Comments POCT GLU (test code = 1848132605) 229 mg/dL 70-110 H Lab Interpretation (test code = Abnormal 00751-2) [facility] GLUCOSE (AUTOMATED)2022-02-14 21:23:56 Test Item Value Reference Range Interpretation Comments POCT GLU (test code = 9822259559) 214 mg/dL 70-110 H Lab Interpretation (test code = Abnormal 39173-6) [facility] GLUCOSE (AUTOMATED)2022-02-14 19:38:54 Test Item Value Reference Range Interpretation Comments POCT GLU (test code = 4782708714) 236 mg/dL 70-110 H Lab Interpretation (test code = Abnormal 15385-9) [facility] GLUCOSE (AUTOMATED)2022-02-14 16:28:53 Test Item Value Reference Range Interpretation Comments POCT GLU (test code = 1103981340) 245 mg/dL 70-110 H Lab Interpretation (test code = Abnormal 13287-7) [facility] 14:17:55 Test Item Value Reference Range Interpretation Comments POCT GLU (test code = 2892028505) 259 mg/dL 70-110 H Lab Interpretation (test code = Abnormal 89690-9) [facility]. METABOLIC PANEL (94580)2022-02-14 10:33:43 Test Item Value Reference Range Interpretation Comments NA (test code = 139 mmol/L 135-145 1928498464) K (test code = 3.9 mmol/L 3.5-5 6636381874) CL (test code = 102 mmol/L 98-108 1777350976) CO2 TOTAL (test code = 33 mmol/L 23-31 H 0904230469) AGAP (test code = 2-16 0958006888) BUN (test code = 11 mg/dL 7-23 1682858485) GLUCOSE (test code = 162 mg/dL 70-110 H 5021902079) CREATININE (test code = 1.05 mg/dL 0.5-1.04 H 8702300626) TOTAL BILI (test code = 0.5 mg/dL 0.1-1.3 4964052886) CALCIUM (test code = 8.2 mg/dL 8.6-10.6 L 1015088401) T PROTEIN (test code = 6.1 g/dL 6.3-8.2 L 2078483629) ALBUMIN (test code = 3.2 g/dL 3.5-5 L 9540158080) ALK PHOS (test code = 113 U/L 34-122 6551813037) ALTv (test code = 37 U/L 5-35 H 1742-6) AST(SGOT) (test code = 29 U/L 13-40 5165303219) eGFR (test code = mL/min/1.73m2 7914473612) JENNIFFER (test code = JENNIFFER) Association of [...] tests). Lab Interpretation Abnormal (test code = 06074-7) [facility]43 Test Item Value Reference Range Interpretation Comments MAGNESIUM (test code = 5817013252) 2.2 mg/dL 1.7-2.4 Lab Interpretation (test code = Normal 70236-3) [facility] WITH [id number] 10:26:41 Test Item Value Reference Range Interpretation Comments WBC (test code = See_Comment [Automated 5190-2) message] The sy stem which generated this result transmitted reference range : 4.30 - 11.10 10*3/?L. The reference range was not used to interpret this result as normal/abnormal . RBC (test code = See_Comment L [Automated 999-8) message] The sy stem which generated this [...] (test code = 51.8 fL 39-49.9 H 29518-1) RDW-CV (test code = 16.1 % 12-15.5 H 788-0) PLT (test code = See_Comment [Automated 777-3) message] The sy stem which generated this result transmitted reference range : 166 - 358 10*3/ ?L. The reference r josselyn was not used to interpret this result as normal/abnormal . MPV (test code = 9.5 fL 9.5-12.9 52762-8) NRBC/100 WBC (test See_Comment [Automat ed code = 0248952060) message] The system which generated this result transmitted reference range : 0.0 - 10.0 /100 WBCs. The refer ence range was not u sed to interpret th is result as normal/abnormal . NRBC x10^3 (test code See_Comment [Auto mated = 7873468089) message] The s ystem which generated this result transmitted reference range : 10*3/?L. The reference range was not used to interpret this result as normal/abnormal . GRAN MAT (NEUT) % 69.7 % (test code = 770-8) IMM GRAN % (test code 0.80 % = 7654186980) LYMPH % (test code = 19.6 % 736-9) MONO % (test code = 6.9 % 5905-5) EOS % (test code = 2.2 % 713-8) BASO % (test code = 0.8 % 706-2) GRAN MAT x10^3(ANC) 3.44 10*3/uL 1.88-7.09 (test code = 6509023197) IMM GRAN x10^3 (test 0.04 10*3/uL 0-0.06 code = 4530319566) LYMPH x10^3 (test code 0.97 10*3/uL 1.32-3.29 L = 731-0) MONO x10^3 (test code 0.34 10*3/uL 0.33-0.92 = 742-7) EOS x10^3 (test code = 0.11 10*3/uL 0.03-0.39 711-2) BASO x10^3 (test code 0.04 10*3/uL 0.01-0.07 = 704-7) Lab Interpretation Abnormal (test code = 86285-3) [facility] GLUCOSE (AUTOMATED)2022-02-14 08:19:03 Test Item Value Reference Range Interpretation Comments POCT GLU (test code = 5191278436) 180 mg/dL 70-110 H Lab Interpretation (test code = Abnormal 29553-2) [facility] GLUCOSE (AUTOMATED)2022-02-14 04:28:25 Test Item Value Reference Range Interpretation Comments POCT GLU (test code = 2281744565) 199 mg/dL 70-110 H Lab Interpretation (test code = Abnormal 05141-4) [facility] GLUCOSE (AUTOMATED)2022-02-14 00:57:11 Test Item Value Reference Range Interpretation Comments POCT GLU (test code = 6612428023) 203 mg/dL 70-110 H Lab Interpretation (test code = Abnormal 52680-5) [facility] GLUCOSE (AUTOMATED)2022-02-13 22:30:21 Test Item Value Reference Range Interpretation Comments POCT GLU (test code = 5032933213) 202 mg/dL 70-110 H Lab Interpretation (test code = Abnormal 11855-3) [facility] GLUCOSE (AUTOMATED)2022-02-13 17:30:07 Test Item Value Reference Range Interpretation Comments POCT GLU (test code = 5553873433) 180 mg/dL 70-110 H Lab Interpretation (test code = Abnormal 22361-5) [facility] GLUCOSE (AUTOMATED)2022-02-13 15:53:46 Test Item Value Reference Range Interpretation Comments POCT GLU (test code = 2898208249) 170 mg/dL 70-110 H Lab Interpretation (test code = Abnormal 15614-9) [facility] Arterial Blood Gas.2022-02-13 14:26:25 Test Item Value Reference Range Interpretation Comments PH (test code = 2) 7.35-7.45 PCO2 (test code = See_Comment [Automate d message] 6666585492) The system [employer] generated this result transmitted ref erence range: 35 - 45 mmHg. The reference r josselyn was not used to interpret this result as normal/abnor mal. PO2 (test code = See_Comment L [Automated message] 1083329710) The system [employer] generated this result transmitted ref erence range: 80 - 100 mmHg. The reference r josselyn was not used to interpret this result as normal/abnor mal. HCO3 (test code = See_Comment H [Automate d message] 3917018301) The system [employer] generated this result transmitted ref erence range: 22 - 26 mEq/L. The reference r josselyn was not used to interpret this result as normal/abnor mal. BE (test code = See_Comment [Automated message] 6170945787) The system [employer] generated this result transmitted ref erence range: -3.0 - 3 .0 mEq/L. The refe rence range was not u sed to interpret this result as normal/abnor mal. Lab Interpretation (test Abnormal code = 80280-8) [facility] GLUCOSE (AUTOMATED)2022-02-13 14:09:26 Test Item Value Reference Range Interpretation Comments POCT GLU (test code = 4486163261) 145 mg/dL 70-110 H Lab Interpretation (test code = Abnormal 98014-6) [facility] GLUCOSE (AUTOMATED)2022-02-13 12:46:36 Test Item Value Reference Range Interpretation Comments POCT GLU (test code = 7400011000) 133 mg/dL 70-110 H Lab Interpretation (test code = Abnormal 40134-3) [facility] GLUCOSE (AUTOMATED)2022-02-13 11:45:25 Test Item Value Reference Range Interpretation Comments POCT GLU (test code = 4763956006) 127 mg/dL 70-110 H Lab Interpretation (test code = Abnormal 65541-0) [facility] METABOLIC PANEL (NA, K, CL, CO2, GLUCOSE, BUN, CREATININE, CA)2022-02-13 11:17:34 Test Item Value Reference Range Interpretation Comments NA (test code = 140 mmol/L 135-145 2814882836) K (test code = 3.8 mmol/L 3.5-5 9619292493) CL (test code = 103 mmol/L 98-108 5102643501) CO2 TOTAL (test code = 35 mmol/L 23-31 H 8198311744) AGAP (test code = 2-16 4931616414) BUN (test code = 14 mg/dL 7-23 9934257668) GLUCOSE (test code = 107 mg/dL 70-110 4056779430) CREATININE (test code = 0.94 mg/dL 0.5-1.04 4956866633) CALCIUM (test code = 8.2 mg/dL 8.6-10.6 L 0011999236) eGFR (test code = mL/min/1.73m2 1772924235) JENNIFFER (test code = JENNIFFER) Association of [...] tests). Lab Interpretation Abnormal (test code = 03896-7) [facility] Test Item Value Reference Range Interpretation Comments MAGNESIUM (test code = 2443400558) 2.1 mg/dL 1.7-2.4 Lab Interpretation (test code = Normal 09304-9) [facility] WITH [id number] 10:41:15 Test Item Value Reference Range Interpretation [...] (test code = 50.6 fL 39-49.9 H 55859-9) RDW-CV (test code = 15.6 % 12-15.5 H 788-0) PLT (test code = See_Comment [Automated 777-3) message] The sy stem which generated this result transmitted reference range : 166 - 358 10*3/ ?L. The reference r ojsselyn was not used to interpret this result as normal/abnormal . MPV (test code = 9.5 fL 9.5-12.9 80899-7) NRBC/100 WBC (test See_Comment [Automat ed code = 4904864578) message] The system which generated this result transmitted reference range : 0.0 - 10.0 /100 WBCs. The refer ence range was not u sed to interpret th is result as normal/abnormal . NRBC x10^3 (test code See_Comment [Auto mated = 5991129185) message] The s ystem which generated this result transmitted reference range : 10*3/?L. The reference range was not used to interpret this result as normal/abnormal . GRAN MAT (NEUT) % 74.0 % (test code = 770-8) IMM GRAN % (test code 0.50 % = 5973178745) LYMPH % (test code = 15.7 % 736-9) MONO % (test code = 7.4 % 5905-5) EOS % (test code = 1.7 % 713-8) BASO % (test code = 0.7 % 706-2) GRAN MAT x10^3(ANC) 4.37 10*3/uL 1.88-7.09 (test code = 3139848018) IMM GRAN x10^3 (test 0.03 10*3/uL 0-0.06 code = 2513970274) LYMPH x10^3 (test code 0.93 10*3/uL 1.32-3.29 L = 731-0) MONO x10^3 (test code 0.44 10*3/uL 0.33-0.92 = 742-7) EOS x10^3 (test code = 0.10 10*3/uL 0.03-0.39 711-2) BASO x10^3 (test code 0.04 10*3/uL 0.01-0.07 = 704-7) Lab Interpretation Abnormal (test code = 07187-2) [facility] GLUCOSE (AUTOMATED)2022-02-13 09:46:08 Test Item Value Reference Range Interpretation Comments POCT GLU (test code = 0104085383) 118 mg/dL 70-110 H Lab Interpretation (test code = Abnormal 69510-2) [facility] GLUCOSE (AUTOMATED)2022-02-13 08:49:55 Test Item Value Reference Range Interpretation Comments POCT GLU (test code = 6932949365) 122 mg/dL 70-110 H Lab Interpretation (test code = Abnormal 59277-2) [facility] GLUCOSE (AUTOMATED)2022-02-13 08:00:27 Test Item Value Reference Range Interpretation Comments POCT GLU (test code = 7152750695) 140 mg/dL 70-110 H Lab Interpretation (test code = Abnormal 29535-9) [facility] 07:07:01 Test Item Value Reference Range Interpretation Comments POCT GLU (test code = 2194406289) 155 mg/dL 70-110 H Lab Interpretation (test code = Abnormal 97657-1) [facility] GLUCOSE (AUTOMATED)2022-02-13 05:57:42 Test Item Value Reference Range Interpretation Comments POCT GLU (test code = 7220080570) 186 mg/dL 70-110 H Lab Interpretation (test code = Abnormal 71075-0) [facility] GLUCOSE (AUTOMATED)2022-02-13 03:40:10 Test Item Value Reference Range Interpretation Comments POCT GLU (test code = 6727095268) 245 mg/dL 70-110 H Lab Interpretation (test code = Abnormal 54236-2) [facility] GLUCOSE (AUTOMATED)2022-02-13 03:35:28 Test Item Value Reference Range Interpretation Comments POCT GLU (test code = 2605741627) 239 mg/dL 70-110 H Lab Interpretation (test code = Abnormal 26457-3) [facility] GLUCOSE (AUTOMATED)2022-02-13 01:48:01 Test Item Value Reference Range Interpretation Comments POCT GLU (test code = 9341993041) 184 mg/dL 70-110 H Lab Interpretation (test code = Abnormal 57653-0) [facility] GLUCOSE (AUTOMATED)2022-02-13 00:35:17 Test Item Value Reference Range Interpretation Comments POCT GLU (test code = 0568790895) 166 mg/dL 70-110 H Lab Interpretation (test code = Abnormal 88408-8) [facility] 23:26:35 Test Item Value Reference Range Interpretation Comments POCT GLU (test code = 5846516752) 149 mg/dL 70-110 H Lab Interpretation (test code = Abnormal 18150-8) [facility] GLUCOSE (AUTOMATED)2022-02-12 22:21:08 Test Item Value Reference Range Interpretation Comments POCT GLU (test code = 4302663098) 133 mg/dL 70-110 H Lab Interpretation (test code = Abnormal 19764-6) [facility] GLUCOSE (AUTOMATED)2022-02-12 21:06:47 Test Item Value Reference Range Interpretation Comments POCT GLU (test code = 0547182581) 130 mg/dL 70-110 H Lab Interpretation (test code = Abnormal 13892-3) [facility] GLUCOSE (AUTOMATED)2022-02-12 20:04:32 Test Item Value Reference Range Interpretation Comments POCT GLU (test code = 8287088277) 122 mg/dL 70-110 H Lab Interpretation (test code = Abnormal 87094-0) [facility] GLUCOSE (AUTOMATED)2022-02-12 19:08:55 Test Item Value Reference Range Interpretation Comments POCT GLU (test code = 6061819471) 133 mg/dL 70-110 H Lab Interpretation (test code = Abnormal 93409-2) [facility] GLUCOSE (AUTOMATED)2022-02-12 18:20:07 Test Item Value Reference Range Interpretation Comments POCT GLU (test code = 1593883254) 136 mg/dL 70-110 H Lab Interpretation (test code = Abnormal 26009-8) [facility] GLUCOSE (AUTOMATED)2022-02-12 17:19:20 Test Item Value Reference Range Interpretation Comments POCT GLU (test code = 7241185828) 155 mg/dL 70-110 H Lab Interpretation (test code = Abnormal 85228-5) [facility] GLUCOSE (AUTOMATED)2022-02-12 16:21:39 Test Item Value Reference Range Interpretation Comments POCT GLU (test code = 8289869764) 143 mg/dL 70-110 H Lab Interpretation (test code = Abnormal 98079-4) [facility]Betahydroxy-[id number] 16:14:56 Test Item Value Reference Range Interpretation Comments BOH (test code = 0.2 mmol/L 8675936767) JENNIFFER (test code = Normal Ranges: ? ? JENNIFFER) Nonfasting ? Less than 0.1 mmol/L ? ? Overnight Fast ? ? ? Less than 0.4 mmol/L ? ? Fasting (1-2 weeks) ?6-8 mmol/L Test developed and characteristics determined by [facility] Laboratory Services. [facility] GLUCOSE (AUTOMATED)2022-02-12 15:53:18 Test Item Value Reference Range Interpretation Comments POCT GLU (test code = 0729843460) 70-110 HH Lab Interpretation (test code = Abnormal 70447-5) [facility] GLUCOSE (AUTOMATED)2022-02-12 14:17:34 Test Item Value Reference Range Interpretation Comments POCT GLU (test code = 0895189957) 232 mg/dL 70-110 H Lab Interpretation (test code = Abnormal 45864-5) [facility] GLUCOSE (AUTOMATED)2022-02-12 13:17:46 Test Item Value Reference Range Interpretation Comments POCT GLU (test code = 0366159952) 295 mg/dL 70-110 H Lab Interpretation (test code = Abnormal 41264-7) [facility] METABOLIC PANEL (NA, K, CL, CO2, GLUCOSE, BUN, CREATININE, CA)2022-02-12 12:56:38 Test Item Value Reference Range Interpretation Comments NA (test code = 138 mmol/L 135-145 9593438169) K (test code = 4.0 mmol/L 3.5-5 7978870416) CL (test code = 98 mmol/L 98-108 4297278323) CO2 TOTAL (test code = 31 mmol/L 23-31 0116905783) AGAP (test code = 2-16 4237913572) BUN (test code = 20 mg/dL 7-23 8505048605) GLUCOSE (test code = 279 mg/dL 70-110 H 7358260232) CREATININE (test code = 1.08 mg/dL 0.5-1.04 H 2344111578) CALCIUM (test code = 8.8 mg/dL 8.6-10.6 7445646297) eGFR (test code = mL/min/1.73m2 4016275810) JENNIFFER (test code = JENNIFFER) Association of [...] tests). Lab Interpretation Abnormal (test code = 89597-2) [facility] GLUCOSE (AUTOMATED)2022-02-12 12:44:19 Test Item Value Reference Range Interpretation Comments POCT GLU (test code = 4255780625) 299 mg/dL 70-110 H Lab Interpretation (test code = Abnormal 03744-4) [facility] GLUCOSE (AUTOMATED)2022-02-12 12:19:29 Test Item Value Reference Range Interpretation Comments POCT GLU (test code = 2958330014) 283 mg/dL 70-110 H Lab Interpretation (test code = Abnormal 86357-6) [facility] GLUCOSE (AUTOMATED)2022-02-12 11:22:10 Test Item Value Reference Range Interpretation Comments POCT GLU (test code = 8269380210) 378 mg/dL 70-110 H Lab Interpretation (test code = Abnormal 52743-1) [facility] GLUCOSE (AUTOMATED)2022-02-12 10:18:29 Test Item Value Reference Range Interpretation Comments POCT GLU (test code = 1649562542) 376 mg/dL 70-110 H Lab Interpretation (test code = Abnormal 23251-7) [facility] HospitalOsmolality [id number] 09:27:10 Test Item Value Reference Range Interpretation Comments OSMOLALITY (test code = See_Comment HH [Au tomated message] 9062-2) The system Wis.dm generated this result transmitted ref erence range: 278 - 30 5 mOsm/kg. The reference range was not used to int erpret this result as normal/abnormal . Lab Interpretation (test Abnormal code = 79809-8) [facility] METABOLIC PANEL (NA, K, CL, CO2, GLUCOSE, BUN, CREATININE, CA)2022-02-12 09:22:44 Test Item Value Reference Range Interpretation Comments NA (test code = 135 mmol/L 135-145 7881289058) K (test code = 4.7 mmol/L 3.5-5 9107033906) CL (test code = 93 mmol/L 98-108 L 1509524951) CO2 TOTAL (test code = 33 mmol/L 23-31 H 9481407109) AGAP (test code = 2-16 6674970790) BUN (test code = 22 mg/dL 7-23 7046631442) GLUCOSE (test code = 474 mg/dL 70-110 HH 4391276561) CREATININE (test code = 1.17 mg/dL 0.5-1.04 H 3071623433) CALCIUM (test code = 8.9 mg/dL 8.6-10.6 3685953726) eGFR (test code = mL/min/1.73m2 7925551780) JENNIFFER (test code = JENNIFFER) Association of [...] tests). Lab Interpretation Abnormal (test code = 85090-7) [facility]-12 09:19:06 Test Item Value Reference Range Interpretation Comments POCT GLU (test code = 7460844454) 478 mg/dL 70-110 HH Lab Interpretation (test code = Abnormal 92726-4) [facility] 09:16:19 Test Item Value Reference Range Interpretation Comments PHOSPHORUS (test code = 0205519151) 5.9 mg/dL 2.5-5 H Lab Interpretation (test code = Abnormal 41001-0) [facility] 09:16:19 Test Item Value Reference Range Interpretation Comments MAGNESIUM (test code = 1878167956) 2.1 mg/dL 1.7-2.4 Lab Interpretation (test code = Normal 68240-5) [facility] HospitalGlycosylated Hemoglobin (A1C)2022-02-12 09:10:46 Test Item Value Reference Range Interpretation Comments HGB A1C (test code = 9.7 % 4-5.7 H 4548-4) JENNIFFER (test code = JENNIFFER) Reference RangesNormal: <5.7%Prediabetes: 5.7 - 6.4%Diabetes: > 6.5% Lab Interpretation (test Abnormal code = 95118-9) [facility] WITH [id number] 08:28:29 Test Item Value Reference Range Interpretation [...] RDW-SD (test code = 49.8 fL 39-49.9 88678-6) RDW-CV (test code = 15.7 % 12-15.5 H 788-0) PLT (test code = See_Comment [Automated 777-3) message] The system which generated this result transmit alden reference range : 166 - 358 10*3/ ?L. The reference range was not u sed to interpret th is result as normal/abnormal . MPV (test code = 9.7 fL 9.5-12.9 80187-1) NRBC/100 WBC (test See_Comment [Automat ed code = 7520769802) message] The system which generated this result transmit alden reference range : 0.0 - 10.0 /100 WBCs. The reference range was not used to interpret this result as normal/abnormal . NRBC x10^3 (test code See_Comment [Auto mated = 5449218772) message] The system which generated this result transmit alden reference range : 10*3/?L. The reference range was not used to interpret this result as normal/abnormal . GRAN MAT (NEUT) % 89.9 % (test code = 770-8) IMM GRAN % (test code 0.90 % = 6108950686) LYMPH % (test code = 3.4 % 736-9) MONO % (test code = 5.3 % 5905-5) EOS % (test code = 0.1 % 713-8) BASO % (test code = 0.4 % 706-2) GRAN MAT x10^3(ANC) 11.94 10*3/uL 1.88-7.09 H (test code = 5816887977) IMM GRAN x10^3 (test 0.12 10*3/uL 0-0.06 H code = 0432159091) LYMPH x10^3 (test code 0.45 10*3/uL 1.32-3.29 L = 731-0) MONO x10^3 (test code 0.70 10*3/uL 0.33-0.92 = 742-7) EOS x10^3 (test code = 0.03-0.39 L 711-2) BASO x10^3 (test code 0.05 10*3/uL 0.01-0.07 = 704-7) Lab Interpretation Abnormal (test code = 09800-5) [facility] GLUCOSE (AUTOMATED)2022-02-12 04:57:17 Test Item Value Reference Range Interpretation Comments POCT GLU (test code = 8983225872) 592 mg/dL 70-110 Lab Interpretation (test code = Abnormal 05793-7) [facility] GLUCOSE (AUTOMATED)2022-02-12 04:57:17 Test Item Value Reference Range Interpretation Comments POCT GLU (test code = 2571842977) 559 mg/dL 70-110 Lab Interpretation (test code = Abnormal 09439-6) [facility] HospitalTHYROID STIMULATING [id number] 02:15:56 Test Item Value Reference Range Interpretation Comments TSH (test code = See_Comment [Automated message] 1196239814) The system Wis.dm generated this result transmitted ref erence range: 0.45 - 4 .70 mIU/L. The refe rence range was not u sed to interpret this result as normal/abnor mal. Lab Interpretation (test Normal code = 36035-2) [facility]FREE [id number] 02:02:37 Test Item Value Reference Range Interpretation Comments FREE T4 (test code = See_Comment [Autom ated message] 5994842205) The system Wis.dm generated this result transmitted ref erence range: 0.78 - 2 .20 ng/dL:. The ref erence range was not u sed to interpret this result as normal/abnor mal. Lab Interpretation (test Normal code = 51988-5) [facility] HospitalTROPONIN [id number] 01:57:33 Test Item Value Reference Interpretation Comments Range TROPONIN I (test 0.001 ng/mL See_Comment [Automated code = 8591286552) message] The system which generated this result [...] biotin. Lab Interpretation Normal (test code = 80771-6) [facility]. METABOLIC PANEL (67484)2022-02-12 01:55:07 Test Item Value Reference Range Interpretation Comments NA (test code = 134 mmol/L 135-145 L 4540207469) K (test code = 4.4 mmol/L 3.5-5 7803442282) CL (test code = 95 mmol/L 98-108 L 2824563032) CO2 TOTAL (test code = 22 mmol/L 23-31 L 7547301639) AGAP (test code = 2-16 H 5863661794) BUN (test code = 22 mg/dL 7-23 5893585013) GLUCOSE (test code = 646 mg/dL 70-110 HH 6943480653) CREATININE (test code = 1.19 mg/dL 0.5-1.04 H 0250670566) TOTAL BILI (test code = 1.1 mg/dL 0.1-1.3 1032784165) CALCIUM (test code = 9.1 mg/dL 8.6-10.6 8314051258) T PROTEIN (test code = 7.0 g/dL 6.3-8.2 8445633115) ALBUMIN (test code = 4.1 g/dL 3.5-5 1196012054) ALK PHOS (test code = 245 U/L 34-122 H 6030345948) ALTv (test code = 78 U/L 5-35 H 1742-6) AST(SGOT) (test code = 76 U/L 13-40 H 2124788469) eGFR (test code = mL/min/1.73m2 8638899488) JENNIFFER (test code = JENNIFFER) Association of [...] tests). Lab Interpretation Abnormal (test code = 15334-4) [facility]AL [id number] 01:54:57 Test Item Value Reference Range Interpretation Comments NT-proBNP (test code 491 pg/mL See_Comment H [Autom ated = 9432347709) message] The system which generated this result transmitted reference range : <=125. The reference range was not used to interpret this result as normal/abnormal . JENNIFFER (test code = JENNIFFER) Biotin has been reported to cause a negative bias, interpret results relative to patient's use of biotin. Lab Interpretation Abnormal (test code = 20808-8) [facility] HospitalETHANOL2022-[facility] 01:47:18 ALCOHOL<10mg/dL02/11/2022 8:47 PM [facility]<10 Iivgzztb66-742 Toxic>100 Depression of REAL ESTATE LEGAL ASSISTANT>400 Fatalities ReportedUnTexas [facility] WorthAMMONIA, [id number] 01:46:13 Test Item Value Reference Range Interpretation Comments AMMONIA (test code = 7550705680) 28 umol/L 9-33 Lab Interpretation (test code = Normal 69323-0) [facility] HospitalACTIVATED PARTIAL THRMPLAS [id number] 01:39:11 Test Item Value Reference Range Interpretation Comments APTT Patient (test See_Comment [Automat ed code = 3173-2) message] The system which generated this result transmitted reference range : 23 - 38 Seconds . The reference range was not used to interpr et this result as normal/abnormal . JENNIFFER (test code = JENNIFFER) The [facility] patient population mean normal value for aPTT is 30 seconds. Lab Interpretation Normal (test code = 49696-2) [facility]CBC WITH [id number] 01:37:15 Test Item Value Reference Range Interpretation Comments WBC (test code = See_Comment H [Automated 2190-2) message] The sy stem which generated this result transmitted reference range : 4.30 - 11.10 10*3/?L. The reference range was not used to interpret this result as normal/abnormal . RBC (test code = See_Comment L [Automated 109-8) message] The sy stem which generated this [...] (test code = 50.9 fL 39-49.9 H 76122-0) RDW-CV (test code = 15.8 % 12-15.5 H 788-0) PLT (test code = See_Comment [Automated 777-3) message] The sy stem which generated this result transmitted reference range : 166 - 358 10*3/ ?L. The reference r josselyn was not used to interpret this result as normal/abnormal . MPV (test code = 9.9 fL 9.5-12.9 98902-4) NRBC/100 WBC (test See_Comment [Automat ed code = 3083679711) message] The system which generated this result transmitted reference range : 0.0 - 10.0 /100 WBCs. The refer ence range was not u sed to interpret th is result as normal/abnormal . NRBC x10^3 (test code See_Comment [Auto mated = 1670012406) message] The s ystem which generated this result transmitted reference range : 10*3/?L. The reference range was not used to interpret this result as normal/abnormal . GRAN MAT (NEUT) % 78.5 % (test code = 770-8) IMM GRAN % (test code 1.20 % = 2143527640) LYMPH % (test code = 12.2 % 736-9) MONO % (test code = 6.4 % 5905-5) EOS % (test code = 1.0 % 713-8) BASO % (test code = 0.7 % 706-2) GRAN MAT x10^3(ANC) 8.80 10*3/uL 1.88-7.09 H (test code = 3556321656) IMM GRAN x10^3 (test 0.14 10*3/uL 0-0.06 H code = 5598089369) LYMPH x10^3 (test code 1.37 10*3/uL 1.32-3.29 = 731-0) MONO x10^3 (test code 0.72 10*3/uL 0.33-0.92 = 742-7) EOS x10^3 (test code = 0.11 10*3/uL 0.03-0.39 711-2) BASO x10^3 (test code 0.08 10*3/uL 0.01-0.07 H = 704-7) Lab Interpretation Abnormal (test code = 92977-0) [facility] HospitalPROTHROMBIN TIME / [id number] 01:36:50 Test Item Value Reference Range Interpretation [...] tions. Lab Interpretation (test Normal code = 32805-3) [facility] GLUCOSE (AUTOMATED)2022-01-31 18:41:03 Test Item Value Reference Range Interpretation Comments POCT GLU (test code = 6941720904) 241 mg/dL 70-110 H Lab Interpretation (test code = Abnormal 36194-9) [facility] HospitalSPUTUM [id number] 14:36:01 Test Item Value Reference Range Interpretation Comments SPUTUM CULTURE 1+ Respiratory iveth: (test code = 622-1) Commensal upper respiratory microorganisms only. Gram stain (test Few Epithelial cells code = 664-3) JENNIFFER (test code = Bacterial pathogens JENNIFFER) associated with lower respiratory infections were not identified, which include Pseudomonas aeruginosa and Staphylococcus aureus (MRSA or MSSA). [facility]N-[facility]MINAL [id number] 14:27:39 Test Item Value Reference Range Interpretation Comments NT-proBNP (test code 2930 pg/mL See_Comment H [Autom ated = 0052833942) message] The system which generated this result transmitted reference range : <=125. The reference range was not used to interpret this result as normal/abnormal . JENNIFFER (test code = JENNIFFER) Biotin has been reported to cause a negative bias, interpret results relative to patient's use of biotin. Lab Interpretation Abnormal (test code = 02200-0) [facility] GLUCOSE (AUTOMATED)2022-01-31 13:06:37 Test Item Value Reference Range Interpretation Comments POCT GLU (test code = 5836208981) 144 mg/dL 70-110 H Lab Interpretation (test code = Abnormal 10724-1) [facility] METABOLIC PANEL (NA, K, CL, CO2, GLUCOSE, BUN, CREATININE, CA)2022-01-31 11:52:51 Test Item Value Reference Range Interpretation Comments NA (test code = 139 mmol/L 135-145 6106339063) K (test code = 4.2 mmol/L 3.5-5.0 7472012696) CL (test code = 92 mmol/L 98-108 L 7783949310) CO2 TOTAL (test code = 39 mmol/L 23-31 H 5878701469) AGAP (test code = 2-16 2684809367) BUN (test code = 32 mg/dL 7-23 H 0107296995) GLUCOSE (test code = 183 mg/dL 70-110 H 7916116490) CREATININE (test code = 0.89 mg/dL 0.50-1.04 9692581488) CALCIUM (test code = 8.7 mg/dL 8.6-10.6 8912833565) eGFR (test code = mL/min/1.73m2 1501441841) JENNIFFER (test code = JENNIFFER) Association of [...] tests). Lab Interpretation Abnormal (test code = 46644-0) [facility]MAGN[facility]UM2022-[facility]-09 11:45:09 Test Item Value Reference Range Interpretation Comments MAGNESIUM (test code = 6896283029) 2.4 mg/dL 1.7-2.4 Lab Interpretation (test code = Normal 67296-7) [facility] 11:44:49 Test Item Value Reference Range Interpretation Comments PHOSPHORUS (test code = 2136259458) 3.3 mg/dL 2.5-5.0 Lab Interpretation (test code = Normal 68341-3) [facility] GLUCOSE (AUTOMATED)2022-01-30 21:23:07 Test Item Value Reference Range Interpretation Comments POCT GLU (test code = 1445302093) 357 mg/dL 70-110 H Lab Interpretation (test code = Abnormal 48381-7) [facility] GLUCOSE (AUTOMATED)2022-01-30 17:39:07 Test Item Value Reference Range Interpretation Comments POCT GLU (test code = 4550769838) 183 mg/dL 70-110 H Lab Interpretation (test code = Abnormal 87381-4) [facility] GLUCOSE (AUTOMATED)2022-01-30 17:39:07 Test Item Value Reference Range Interpretation Comments POCT GLU (test code = 8851537582) 275 mg/dL 70-110 H Lab Interpretation (test code = Abnormal 89313-4) [facility] GLUCOSE (AUTOMATED)2022-01-30 13:42:50 Test Item Value Reference Range Interpretation Comments POCT GLU (test code = 9558559654) 187 mg/dL 70-110 H Lab Interpretation (test code = Abnormal 09076-9) [facility] [id number] 10:44:07 Test Item Value Reference Range Interpretation Comments NT-proBNP (test code 3180 pg/mL See_Comment H [Autom ated = 6016594237) message] The system which generated this result transmitted reference range : <=125. The reference range was not used to interpret this result as normal/abnormal . JENNIFFER (test code = JENNIFFER) Biotin has been reported to cause a negative bias, interpret results relative to patient's use of biotin. Lab Interpretation Abnormal (test code = 68200-2) [facility]. METABOLIC PANEL (53603)2022-01-30 10:36:27 Test Item Value Reference Range Interpretation Comments NA (test code = 139 mmol/L 135-145 5872066619) K (test code = 3.7 mmol/L 3.5-5.0 7093587540) CL (test code = 92 mmol/L 98-108 L 6680939750) CO2 TOTAL (test code = 37 mmol/L 23-31 H 1421064980) AGAP (test code = 2-16 4638013937) BUN (test code = 22 mg/dL 7-23 8520416972) GLUCOSE (test code = 192 mg/dL 70-110 H 4784223022) CREATININE (test code = 1.04 mg/dL 0.50-1.04 5423100967) TOTAL BILI (test code = 0.7 mg/dL 0.1-1.0 0548186449) CALCIUM (test code = 8.3 mg/dL 8.6-10.6 L 5605724817) T PROTEIN (test code = 6.8 g/dL 6.3-8.2 3546203385) ALBUMIN (test code = 3.7 g/dL 3.5-5.0 5017520604) ALK PHOS (test code = 124 U/L 34-122 H 5352466685) ALTv (test code = 28 U/L 5-35 1742-6) AST(SGOT) (test code = 24 U/L 13-40 5720777123) eGFR (test code = mL/min/1.73m2 6942321425) JENNIFFER (test code = JENNIFFER) Association of [...] tests). Lab Interpretation Abnormal (test code = 56871-4) [facility] WITH [id number] 09:41:38 Test Item Value Reference Range Interpretation Comments WBC (test code = See_Comment [Automated 5790-2) message] The sy stem which generated this result transmitted reference range : 4.30 - 11.10 10*3/?L. The reference range was not used to interpret this result as normal/abnormal . RBC (test code = See_Comment L [Automated 299-8) message] The sy stem which generated this [...] RDW-SD (test code = 47.8 fL 39.0-49.9 52378-6) RDW-CV (test code = 15.0 % 12.0-15.5 788-0) PLT (test code = See_Comment [Automated 777-3) message] The sy stem which generated this result transmitted reference range : 166 - 358 10*3/ ?L. The reference r josselyn was not used to interpret this result as normal/abnormal . MPV (test code = 9.1 fL 9.5-12.9 L 83995-5) NRBC/100 WBC (test See_Comment [Automat ed code = 7304087276) message] The system which generated this result transmitted reference range : 0.0 - 10.0 /100 WBCs. The refer ence range was not u sed to interpret th is result as normal/abnormal . NRBC x10^3 (test code <0.01 See_Comment [Auto mated = 8123302935) message] The s ystem which generated this result transmitted reference range : 10*3/?L. The reference range was not used to interpret this result as normal/abnormal . GRAN MAT (NEUT) % 85.7 % (test code = 770-8) IMM GRAN % (test code 0.60 % = 7777470330) LYMPH % (test code = 7.1 % 736-9) MONO % (test code = 6.1 % 5905-5) EOS % (test code = 0.1 % 713-8) BASO % (test code = 0.4 % 706-2) GRAN MAT x10^3(ANC) 7.16 10*3/uL 1.88-7.09 H (test code = 2993384594) IMM GRAN x10^3 (test 0.05 10*3/uL 0.00-0.06 code = 3589734018) LYMPH x10^3 (test code 0.59 10*3/uL 1.32-3.29 L = 731-0) MONO x10^3 (test code 0.51 10*3/uL 0.33-0.92 = 742-7) EOS x10^3 (test code = <0.03 0.03-0.39 L 711-2) BASO x10^3 (test code 0.03 10*3/uL 0.01-0.07 = 704-7) Lab Interpretation Abnormal (test code = 62916-2) [facility] GLUCOSE (AUTOMATED)2022-01-30 03:06:20 Test Item Value Reference Range Interpretation Comments POCT GLU (test code = 3923909928) 336 mg/dL 70-110 H Lab Interpretation (test code = Abnormal 96786-5) [facility] 21:35:38 Test Item Value Reference Range Interpretation Comments PHOSPHORUS (test code = 9262199208) 4.3 mg/dL 2.5-5.0 Lab Interpretation (test code = Normal 09144-8) [facility] GLUCOSE (AUTOMATED)2022-01-29 21:21:35 Test Item Value Reference Range Interpretation Comments POCT GLU (test code = 5902518906) 354 mg/dL 70-110 H Lab Interpretation (test code = Abnormal 34676-1) [facility] GLUCOSE (AUTOMATED)2022-01-29 16:10:10 Test Item Value Reference Range Interpretation Comments POCT GLU (test code = 8083136529) 240 mg/dL 70-110 H Lab Interpretation (test code = Abnormal 74317-8) [facility] GLUCOSE (AUTOMATED)2022-01-29 15:16:07 Test Item Value Reference Range Interpretation Comments POCT GLU (test code = 8538837060) 219 mg/dL 70-110 H Lab Interpretation (test code = Abnormal 65030-7) [facility] GLUCOSE (AUTOMATED)2022-01-29 13:06:22 Test Item Value Reference Range Interpretation Comments POCT GLU (test code = 4998126921) 176 mg/dL 70-110 H Lab Interpretation (test code = Abnormal 44578-0) [facility]. METABOLIC PANEL (41778)2022-01-29 10:31:34 Test Item Value Reference Range Interpretation Comments NA (test code = 141 mmol/L 135-145 4616149170) K (test code = 4.2 mmol/L 3.5-5.0 9744671170) CL (test code = 96 mmol/L 98-108 L 6966564427) CO2 TOTAL (test code = 37 mmol/L 23-31 H 6565112414) AGAP (test code = 2-16 7680418117) BUN (test code = 20 mg/dL 7-23 7116950563) GLUCOSE (test code = 179 mg/dL 70-110 H 2685775882) CREATININE (test code = 0.90 mg/dL 0.50-1.04 5041547373) TOTAL BILI (test code = 0.7 mg/dL 0.1-1.1 5993043314) CALCIUM (test code = 8.3 mg/dL 8.6-10.6 L 4146153713) T PROTEIN (test code = 7.3 g/dL 6.3-8.2 6340537485) ALBUMIN (test code = 3.9 g/dL 3.5-5.0 9928866186) ALK PHOS (test code = 151 U/L 34-122 H 5736189829) ALTv (test code = 44 U/L 5-35 H 1742-6) AST(SGOT) (test code = 54 U/L 13-40 H 3327993699) eGFR (test code = mL/min/1.73m2 5706265147) JENNIFFER (test code = JENNIFFER) Association of [...] tests). Lab Interpretation Abnormal (test code = 51103-2) [facility] [id number] 10:06:38 Test Item Value Reference Range Interpretation Comments NT-proBNP (test code 3080 pg/mL See_Comment H [Autom ated = 9678013959) message] The system which generated this result transmitted reference range : <=125. The reference range was not used to interpret this result as normal/abnormal . JENNIFFER (test code = JENNIFFER) Biotin has been reported to cause a negative bias, interpret results relative to patient's use of biotin. Lab Interpretation Abnormal (test code = 86408-5) [facility]35 Test Item Value Reference Range Interpretation Comments MAGNESIUM (test code = 7026490176) 1.8 mg/dL 1.7-2.4 Lab Interpretation (test code = Normal 24207-2) [facility] [id number] 09:47:53 Test Item Value Reference Range Interpretation Comments WBC (test code = See_Comment H [Automated 1990-2) message] The system which generated this result transmit alden reference range : 4.30 - 11.10 10*3/?L. The reference range was not used to interpret this result as normal/abnormal . RBC (test code = See_Comment L [Automated 879-8) message] The system which generated this result [...] (test code = 50.9 fL 39.0-49.9 H 35698-3) RDW-CV (test code = 15.5 % 12.0-15.5 788-0) PLT (test code = See_Comment [Automated 777-3) message] The system which generated this result transmit alden reference range : 166 - 358 10*3/ ?L. The reference range was not u sed to interpret th is result as normal/abnormal . MPV (test code = 9.9 fL 9.5-12.9 34723-1) NRBC/100 WBC (test See_Comment [Automat ed code = 1979335740) message] The system which generated this result transmit alden reference range : 0.0 - 10.0 /100 WBCs. The reference range was not used to interpret this result as normal/abnormal . NRBC x10^3 (test code <0.01 See_Comment [Auto mated = 9949917987) message] The system which generated this result transmit alden reference range : 10*3/?L. The reference range was not used to interpret this result as normal/abnormal . GRAN MAT (NEUT) % 87.2 % (test code = 770-8) IMM GRAN % (test code 0.50 % = 6814548896) LYMPH % (test code = 5.6 % 736-9) MONO % (test code = 5.9 % 5905-5) EOS % (test code = 0.4 % 713-8) BASO % (test code = 0.4 % 706-2) GRAN MAT x10^3(ANC) 10.37 10*3/uL 1.88-7.09 H (test code = 6561650616) IMM GRAN x10^3 (test 0.06 10*3/uL 0.00-0.06 code = 9974096026) LYMPH x10^3 (test code 0.66 10*3/uL 1.32-3.29 L = 731-0) MONO x10^3 (test code 0.70 10*3/uL 0.33-0.92 = 742-7) EOS x10^3 (test code = 0.05 10*3/uL 0.03-0.39 711-2) BASO x10^3 (test code 0.05 10*3/uL 0.01-0.07 = 704-7) Lab Interpretation Abnormal (test code = 42887-2) [facility] GLUCOSE (AUTOMATED)2022-01-29 05:48:29 Test Item Value Reference Range Interpretation Comments POCT GLU (test code = 8518993039) 297 mg/dL 70-110 H Lab Interpretation (test code = Abnormal 17903-3) [facility] GLUCOSE (AUTOMATED)2022-01-29 05:48:29 Test Item Value Reference Range Interpretation Comments POCT GLU (test code = 8907006081) 282 mg/dL 70-110 H Lab Interpretation (test code = Abnormal 19025-0) [facility] GLUCOSE (AUTOMATED)2022-01-28 23:35:33 Test Item Value Reference Range Interpretation Comments POCT GLU (test code = 2898152617) 302 mg/dL 70-110 H Lab Interpretation (test code = Abnormal 32705-0) [facility]12, [id number] 23:17:54 Test Item Value Reference Range Interpretation Comments VIT B12 (test code = 265 pg/mL 240-930 4817508557) JENNIFFER (test code = JENNIFFER) Biotin has been reported to cause a positive bias, interpret results relative to patient's use of biotin. Lab Interpretation (test Normal code = 78971-8) [facility] 20:35:43 Test Item Value Reference Range Interpretation Comments Procalcitonin (test 0.13 ng/mL <0.07 H code = 8134688453) JENNIFFER (test code = JENNIFFER) INTERPRETATION OF [...] lung abscess/empyema. For further information please refer to:[email or web address] Lab Interpretation Abnormal (test code = 88352-2) [facility] D, [id number] 20:34:43 Test Item Value Reference Range Interpretation Comments VIT D 25OH (test code = 23 ng/mL 25-80 L 06276-1) JENNIFFER (test code = JENNIFFER) Deficiency: <20 ng/mLInsufficiency: 20-24 ng/mLOptimal: 25-80 ng/mL Lab Interpretation (test Abnormal code = 24500-1) [facility]TR[facility] [id number] 18:15:31 Test Item Value Reference Interpretation Comments Range TROPONIN I (test 0.003 ng/mL See_Comment [Automated code = 1849145003) message] The system which generated this result [...] biotin. Lab Interpretation Normal (test code = 47863-9) [facility] [id number] 18:04:12 Test Item Value Reference Range Interpretation Comments URIC ACID (test code = 1430170885) 9.3 mg/dL 2.9-6.0 H Lab Interpretation (test code = Abnormal 09546-7) [facility]Tran[facility]E)2022-01-28 17:57:52 Test Item Value Reference Range Interpretation Comments Height (test code = in 2926028507) Weight (test code = lbs 7452658658) Systolic BP (test code = mmHg 6204934998) Diastolic BP (test code = mmHg 4162306203) Heart Rate (test code = bpm 4037343082) Ao root annulus (test 3.1 cm code = 2553274203) Ao root diam (test code = 3.10 cm 3539489473) Aortic root (test code = 3.1 cm 3298608472) LA size (test code = 4.9 cm 9183169050) LVOT diameter (test code 2.10 cm = 3955455459) E wave decelartion time 0.25 s (test code = 6250379420) MV Peak E Marva (test code 83.7 cm/s = 9273961143) MV Peak A Marva (test code 66.0 cm/s = 7749747671) E/A ratio (test code = ratio 4424386955) MV E/e' septal (test code 8.2 cm/s = 0827102999) Tapse (test code = 1.68 cm 2215712308) Aortic valve mean 77.4 cm/s velocity (test code = 9622999944) Ao peak marva (test code = 124.6 cm/s 3452991529) Ao VTI (test code = 20.7 cm 7460468050) Ao max PG (test code = 6.20 mm[Hg] 0287159849) AV peak gradient (test mmHg code = 0005107249) AV mean gradient (test mmHg code = 3615836632) LVOT stroke volume (test 62.00 cm3 code = 7700293354) LVOT peak marva (test code 104.3 cm/s = 3962657233) LVOT mn grad (test code = mmHg 7800455550) AV LVOT peak gradient mmHg (test code = 5770417835) LVOT peak VTI (test code 17.9 cm = 5099179090) AV area by cont VTI (test 3.0 cm2 code = 5917876783) AV area peak marva (test 2.9 cm2 code = 1790553501) LV V1 mean (test code = 63.60 cm/s 7215561589) AV valve area (test code 3.00 cm2 = 2746336433) LVIDD (test code = 5.20 cm 6384104959) IVS (test code = 0.79 cm 0526690481) Interventricular Septum 0.79 cm Diastolic Thickness by 2D (test code = 8618940) LVPWD (test code = 0.66 cm 9767676407) PW (test code = 0.66 cm 0.6-1.0 9561129958) EF(Teich) (test code = 48.60 % 6101924520) LVIDS (test code = 3.90 cm 0599119704) FS (test code = 25 % 3087656027) EF - 2D (test code = 48.60 % 68575111) Radiology Study observation (narrative) (test code = 36667-5) JENNIFFER (test code = JENNIFFER) ?Left?Ventricle: Normal systolic function with a visually estimated EF of 60 - 65%. ?Tricuspid?Valve: Insufficient regurgant jet to estimate RVSP. ?RA pressure is 10-15 mmHg. VitalsHeight Weight BSA (Calculated - sq m) BP Pulse 5' 1" (1.549 m) 230 lb (104.3 kg) 2.12 sq meters 118/66 96 [facility]TR[facility]IN [id number] 14:19:29 Test Item Value Reference Interpretation Comments Range TROPONIN I (test 0.003 ng/mL See_Comment [Automated code = 1463367511) message] The system which generated this result [...] biotin. Lab Interpretation Normal (test code = 58514-8) [facility]AL [id number] 14:16:29 Test Item Value Reference Range Interpretation Comments NT-proBNP (test code 1170 pg/mL See_Comment H [Autom ated = 2800094053) message] The system which generated this result transmitted reference range : <=125. The reference range was not used to interpret this result as normal/abnormal . JENNIFFER (test code = JENNIFFER) Biotin has been reported to cause a negative bias, interpret results relative to patient's use of biotin. Lab Interpretation Abnormal (test code = 40325-8) [facility] HospitalIRON [id number] 14:14:29 Test Item Value Reference Range Interpretation Comments IRON (test code = 0783135519) 42 ug/dL 50-160 L TIBC (test code = 3743666826) 299 ug/dL 250-410 % FE SAT (test code = 4320203155) 14 % 20-50 L Lab Interpretation (test code = Abnormal 10649-6) [facility] GLUCOSE (AUTOMATED)2022-01-28 14:00:04 Test Item Value Reference Range Interpretation Comments POCT GLU (test code = 5789137017) 197 mg/dL 70-110 H Lab Interpretation (test code = Abnormal 41545-7) [facility] GLUCOSE (AUTOMATED)2022-01-28 13:01:52 Test Item Value Reference Range Interpretation Comments POCT GLU (test code = 1994487322) 211 mg/dL 70-110 H Lab Interpretation (test code = Abnormal 79848-6) [facility] HospitalFERRITIN [id number] 13:00:31 Test Item Value Reference Range Interpretation Comments FERRITIN (test code = 86.8 ng/mL 11.0-264.0 2843212186) JENNIFFER (test code = JENNIFFER) Biotin has been reported to cause a negative bias, interpret results relative to patient's use of biotin. Lab Interpretation (test Normal code = 42512-3) [facility] HospitalTHYROID STIMULATING [id number] 12:56:35 Test Item Value Reference Range Interpretation Comments TSH (test code = See_Comment [Automated message] 4842739783) The system Wis.dm generated this result transmitted ref erence range: 0.45 - 4 .70 mIU/L. The refe rence range was not u sed to interpret this result as normal/abnor mal. Lab Interpretation (test Normal code = 80223-1) [facility] HospitalSEDIMENTATION [id number] 12:41:55 Test Item Value Reference Range Interpretation Comments ESR (test code = See_Comment H [Automated message] 6974139696) The system Wis[employer]dm generated this result transmitted ref erence range: 0 - 20 m m/HR. The reference r josselyn was not used to interpret this result as normal/abnor mal. Lab Interpretation (test Abnormal code = 06185-2) [facility]TROPONIN [id number] 12:38:13 Test Item Value Reference Interpretation Comments Range TROPONIN I (test 0.003 ng/mL See_Comment [Automated code = 2850916684) message] The system which generated this result [...] biotin. Lab Interpretation Normal (test code = 19079-8) [facility]MINAL [id number] 12:34:52 Test Item Value Reference Range Interpretation Comments NT-proBNP (test code 1150 pg/mL See_Comment H [Autom ated = 6349390554) message] The system which generated this result transmitted reference range : <=125. The reference range was not used to interpret this result as normal/abnormal . JENNIFFER (test code = JENNIFFER) Biotin has been reported to cause a negative bias, interpret results relative to patient's use of biotin. Lab Interpretation Abnormal (test code = 75742-8) [facility] HospitalLIPID PANEL (73962)(TOTAL CHOLESTEROL, TRIGLYCERIDES, HDL)2022-01-28 12:26:13 Test Item Value Reference Range Interpretation Comments CHOL (test code = 122 mg/dL 120-200 1033206114) HDL (test code = 27 mg/dL >50 L 7096812361) HDLC RATIO (test code = See_Comment [Au tomated message] 1599353359) The system [employer] generated this result transmit alden reference range : <=4.5. The refe rence range was not u sed to interpret th is result as normal/abnormal . TRIG (test code = 249 mg/dL 30-170 H 3631403596) LDL CHOL (test code = 45 mg/dL See_Comment [Auto mated message] 19766-4) The system Wis[employer]dm generated this result transmit alden reference range : <=160. The refe rence range was not u sed to interpret th is result as normal/abnormal . VLDL (test code = 50 mg/dL 5-60 8308945028) Lab Interpretation (test Abnormal code = 32079-3) [facility] 12:26:13 Test Item Value Reference Range Interpretation Comments MAGNESIUM (test code = 1426593259) 1.9 mg/dL 1.7-2.4 Lab Interpretation (test code = Normal 80076-6) [facility]COMP. METABOLIC PANEL (81206)2022-01-28 12:25:53 Test Item Value Reference Range Interpretation Comments NA (test code = 141 mmol/L 135-145 2836471431) K (test code = 4.9 mmol/L 3.5-5.0 5680169324) CL (test code = 101 mmol/L 98-108 5149173981) CO2 TOTAL (test code = 32 mmol/L 23-31 H 1730145577) AGAP (test code = 2-16 0352391343) BUN (test code = 20 mg/dL 7-23 7394763308) GLUCOSE (test code = 217 mg/dL 70-110 H 7417225088) CREATININE (test code = 1.05 mg/dL 0.50-1.04 H 9056246374) TOTAL BILI (test code = 0.7 mg/dL 0.1-1.6 2693580597) CALCIUM (test code = 8.5 mg/dL 8.6-10.6 L 0115185221) T PROTEIN (test code = 7.2 g/dL 6.3-8.2 3725019960) ALBUMIN (test code = 3.9 g/dL 3.5-5.0 9991358655) ALK PHOS (test code = 161 U/L 34-122 H 4710104680) ALTv (test code = 50 U/L 5-35 H 1742-6) AST(SGOT) (test code = 61 U/L 13-40 H 1970517122) eGFR (test code = mL/min/1.73m2 0059840626) JENNIFFER (test code = JENNIFFER) Association of [...] tests). Lab Interpretation Abnormal (test code = 86642-8) [facility]PHOSPHORUS20[facility] 12:25:53 Test Item Value Reference Range Interpretation Comments PHOSPHORUS (test code = 8027559357) 5.3 mg/dL 2.5-5.0 H Lab Interpretation (test code = Abnormal 45499-0) [facility]URIC [id number] 12:25:33 Test Item Value Reference Range Interpretation Comments URIC ACID (test code = 1995250888) 9.5 mg/dL 2.9-6.0 H Lab Interpretation (test code = Abnormal 91517-8) [facility] HospitalCREATINE [id number] 12:25:13 Test Item Value Reference Range Interpretation Comments CK (test code = 0901423139) 27 U/L 33-194 L Lab Interpretation (test code = Abnormal 67898-5) [facility] HospitalGLYCOSYLATED HEMOGLOBIN (A1C)2022-01-28 07:50:20 Test Item Value Reference Range Interpretation Comments HGB A1C (test code = 8.9 % 4.0-5.7 H 4548-4) JENNIFFER (test code = JENNIFFER) Reference RangesNormal: <5.7%Prediabetes: 5.7 - 6.4%Diabetes: > 6.5% Lab Interpretation (test Abnormal code = 05734-5) [facility]TROPONIN [id number] 03:04:27 Test Item Value Reference Interpretation Comments Range TROPONIN I (test 0.002 ng/mL See_Comment [Automated code = 5058457339) message] The system which generated this result [...] biotin. Lab Interpretation Normal (test code = 81958-7) [facility]AL [id number] 03:01:09 Test Item Value Reference Range Interpretation Comments NT-proBNP (test code 358 pg/mL See_Comment H [Autom ated = 3798219238) message] The system which generated this result transmitted reference range : <=125. The reference range was not used to interpret this result as normal/abnormal . JENNIFFER (test code = JENNIFFER) Biotin has been reported to cause a negative bias, interpret results relative to patient's use of biotin. Lab Interpretation Abnormal (test code = 14001-0) [facility] HospitalACTIV[facility] PARTIAL THRMPLAS [id number] 02:54:28 Test Item Value Reference Range Interpretation Comments APTT Patient (test See_Comment [Automat ed code = 3173-2) message] The system which generated this result transmitted reference range : 23 - 38 Seconds . The reference range was not used to interpr et this result as normal/abnormal . JENNIFFER (test code = JENNIFFER) The [facility] patient population mean normal value for aPTT is 30 seconds. Lab Interpretation Normal (test code = 69766-6) [facility]. METABOLIC PANEL (52568)2022-01-28 02:52:27 Test Item Value Reference Range Interpretation Comments NA (test code = 137 mmol/L 135-145 9218284412) K (test code = 5.0 mmol/L 3.5-5.0 1534862017) CL (test code = 101 mmol/L 98-108 9341286196) CO2 TOTAL (test code = 22 mmol/L 23-31 L 3677622496) AGAP (test code = 2-16 5197997999) BUN (test code = 21 mg/dL 7-23 4320220821) GLUCOSE (test code = 334 mg/dL 70-110 H 2490870470) CREATININE (test code = 1.03 mg/dL 0.50-1.04 8134106475) TOTAL BILI (test code = 0.8 mg/dL 0.1-1.7 8582250531) CALCIUM (test code = 9.0 mg/dL 8.6-10.6 3146600099) T PROTEIN (test code = 7.3 g/dL 6.3-8.2 5694376736) ALBUMIN (test code = 4.2 g/dL 3.5-5.0 6835342842) ALK PHOS (test code = 186 U/L 34-122 H 4762996667) ALTv (test code = 53 U/L 5-35 H 1742-6) AST(SGOT) (test code = 98 U/L 13-40 H 7934824909) eGFR (test code = mL/min/1.73m2 6869492391) JENNIFFER (test code = JENNIFFER) Association of [...] tests). Lab Interpretation Abnormal (test code = 90241-4) [facility] HospitalPROTHROMBIN TIME / [id number] 02:51:06 Test Item Value Reference Range Interpretation [...] tions. Lab Interpretation (test Normal code = 01676-3) [facility] WITH [id number] 02:43:03 Test Item Value Reference Range Interpretation [...] RDW-SD (test code = 49.4 fL 39.0-49.9 38423-5) RDW-CV (test code = 15.6 % 12.0-15.5 H 788-0) PLT (test code = See_Comment [Automated 777-3) message] The sy stem which generated this result transmitted reference range : 166 - 358 10*3/ ?L. The reference r josselyn was not used to interpret this result as normal/abnormal . MPV (test code = 9.7 fL 9.5-12.9 41271-0) NRBC/100 WBC (test See_Comment [Automat ed code = 2837782433) message] The system which generated this result transmitted reference range : 0.0 - 10.0 /100 WBCs. The refer ence range was not u sed to interpret th is result as normal/abnormal . NRBC x10^3 (test code <0.01 See_Comment [Auto mated = 1158861640) message] The s ystem which generated this result transmitted reference range : 10*3/?L. The reference range was not used to interpret this result as normal/abnormal . GRAN MAT (NEUT) % 88.0 % (test code = 770-8) IMM GRAN % (test code 0.60 % = 6913701684) LYMPH % (test code = 5.4 % 736-9) MONO % (test code = 4.5 % 5905-5) EOS % (test code = 0.9 % 713-8) BASO % (test code = 0.6 % 706-2) GRAN MAT x10^3(ANC) 9.50 10*3/uL 1.88-7.09 H (test code = 5889542247) IMM GRAN x10^3 (test 0.06 10*3/uL 0.00-0.06 code = 1419668143) LYMPH x10^3 (test code 0.58 10*3/uL 1.32-3.29 L = 731-0) MONO x10^3 (test code 0.49 10*3/uL 0.33-0.92 = 742-7) EOS x10^3 (test code = 0.10 10*3/uL 0.03-0.39 711-2) BASO x10^3 (test code 0.06 10*3/uL 0.01-0.07 = 704-7) Lab Interpretation Abnormal (test code = 13430-1) [facility]OLIC [facility] (32314)2022-01-12 23:54:59 Test Item Value Reference Range Interpretation Comments NA (test code = 143 mmol/L 135-145 4974930823) K (test code = 4.1 mmol/L 3.5-5.0 7872662465) CL (test code = 103 mmol/L 98-108 9030134658) CO2 TOTAL (test code = 27 mmol/L 23-31 8835465391) AGAP (test code = 2-16 4648958187) BUN (test code = 12 mg/dL 7-23 2833416450) GLUCOSE (test code = 278 mg/dL 70-110 H 3717832734) CREATININE (test code = 0.61 mg/dL 0.50-1.04 5511433488) TOTAL BILI (test code = 0.6 mg/dL 0.1-1.8 8301596879) CALCIUM (test code = 9.6 mg/dL 8.6-10.6 0328496268) T PROTEIN (test code = 7.6 g/dL 6.3-8.2 1019076663) ALBUMIN (test code = 4.3 g/dL 3.5-5.0 7920137910) ALK PHOS (test code = 130 U/L 34-122 H 1397242314) ALTv (test code = 29 U/L 5-35 2-6) AST(SGOT) (test code = 39 U/L 13-40 1412960168) eGFR (test code = mL/min/1.73m2 4409650805) JENNIFFER (test code = JENNIFFER) Association of [...] tests). Lab Interpretation Abnormal (test code = 69332-6) [facility] WITH [id number] 23:43:55 Test Item Value Reference Range Interpretation [...] (test code = 47.8 fL 39.0-49.9 Previous 87316-1) preliminary verified result was 48.1 fL on [...] (test code = 10.0 fL 9.5-12.9 Previous 33779-7) preliminary verified result was 9.9 fL on 2021 at 1842 CDT IPF % (test code = 3.9 % 1.3-7.7 Platelet count 6421077291) measured by fluorescence method. NRBC/100 WBC (test See_Comment [Automat ed code = 2223727175) message] The system which generated this result transmitted reference range : 0.0 - 10.0 /100 WBCs. The refer ence range was not u sed to interpret th is result as normal/abnormal . NRBC x10^3 (test code <0.01 See_Comment [Auto mated = 8894667144) message] The s ystem which generated this result transmitted reference range : 10*3/?L. The reference range was not used to interpret this result as normal/abnormal . GRAN MAT (NEUT) % 85.9 % (test code = 770-8) IMM GRAN % (test code 0.90 % = 7945045626) LYMPH % (test code = 4.7 % 736-9) MONO % (test code = 5.3 % 5905-5) EOS % (test code = 2.6 % 713-8) BASO % (test code = 0.6 % 706-2) GRAN MAT x10^3(ANC) 6.93 10*3/uL 1.88-7.09 (test code = 2860620128) IMM GRAN x10^3 (test 0.07 10*3/uL 0.00-0.06 H code = 5049429293) LYMPH x10^3 (test code 0.38 10*3/uL 1.32-3.29 L = 731-0) MONO x10^3 (test code 0.43 10*3/uL 0.33-0.92 = 742-7) EOS x10^3 (test code = 0.21 10*3/uL 0.03-0.39 711-2) BASO x10^3 (test code 0.05 10*3/uL 0.01-0.07 = 704-7) Lab Interpretation Abnormal (test code = 63781-3) [facility] + LACTIC [id number] 23:29:12 Test Item Value Reference Range Interpretation Comments PH (test code = 7.32-7.42 L 9604915928) PCO2 CELIA (test code = See_Comment H [Auto mated 2624490279) message] The sy stem which generated this result transmitted reference range : 41 - 51 mmHg. The reference range was not used to interpret this result as normal/abnormal . PO2 CELIA (test code = See_Comment HH [Autom ated 9494908307) message] The sy stem which generated this result transmitted reference range : 25 - 40 mmHg. The reference range was not used to interpret this result as normal/abnormal . HCO3 CELIA (test code = See_Comment H [Auto mated 4715260754) message] The sy stem which generated this result transmitted reference range : 24 - 28 mEq/L. The reference range was not used to interpret this result as normal/abnormal . AC VBE(BEAKER) (test mEq/L code = 3425392653) THB CELIA (test code = 12.1 g/dL 12.0-16.0 0919415008) %O2HB CELIA (test code = 90.8 % 52.0-63.0 H 9543823340) %COHB CELIA (test code = 0.0 % 0.0-1.5 3112011356) %METHB CELIA (test code = 0.0 % 0.4-1.5 L 9079262982) VOL%O2 CELIA (test code = 15.5 % 6.0-12.0 H 0667994798) NA (test code = 145 mmol/L 135-145 9692746868) K+ (test code = 4.1 mmol/L 3.5-5.0 6829366304) AC CA IONZ (test code = 5.30 mg/dL 4.50-5.30 1112698003) GLUCOSE (test code = 291 mg/dL 70-110 H 9444065250) LACTIC ACID (test code 1.04 mmol/L 0.50-2.20 = 5018514826) Lab Interpretation Abnormal (test code = 45643-9) [facility] GLUCOSE (AUTOMATED)2022-01-12 17:49:50 Test Item Value Reference Range Interpretation Comments POCT GLU (test code = 8611113073) 120 mg/dL 70-110 H Lab Interpretation (test code = Abnormal 97971-7) [facility] GLUCOSE (AUTOMATED)2022-01-12 13:25:37 Test Item Value Reference Range Interpretation Comments POCT GLU (test code = 5699694469) 76 mg/dL 70-110 Lab Interpretation (test code = Normal 11383-3) [facility] GLUCOSE (AUTOMATED)2022-01-12 05:53:23 Test Item Value Reference Range Interpretation Comments POCT GLU (test code = 4384733924) 107 mg/dL 70-110 Lab Interpretation (test code = Normal 51512-3) [facility] GLUCOSE (AUTOMATED)2022-01-11 23:03:13 Test Item Value Reference Range Interpretation Comments POCT GLU (test code = 2360515502) 142 mg/dL 70-110 H Lab Interpretation (test code = Abnormal 04802-2) [facility] GLUCOSE (AUTOMATED)2022-01-11 17:22:09 Test Item Value Reference Range Interpretation Comments POCT GLU (test code = 6405329168) 106 mg/dL 70-110 Lab Interpretation (test code = Normal 47796-2) [facility] GLUCOSE (AUTOMATED)2022-01-11 13:11:20 Test Item Value Reference Range Interpretation Comments POCT GLU (test code = 9630515254) 91 mg/dL 70-110 Lab Interpretation (test code = Normal 25570-6) [facility] METABOLIC PANEL (NA, K, CL, CO2, GLUCOSE, BUN, CREATININE, CA)2022-01-11 11:52:16 Test Item Value Reference Range Interpretation Comments NA (test code = 141 mmol/L 135-145 2408952906) K (test code = 3.7 mmol/L 3.5-5.0 2031680607) CL (test code = 100 mmol/L 98-108 6603754793) CO2 TOTAL (test code 30 mmol/L 23-31 = 2625562443) AGAP (test code = 2-16 1660886835) BUN (test code = 14 mg/dL 7-23 6873042961) GLUCOSE (test code = 85 mg/dL 70-110 4593446631) CREATININE (test code 0.62 mg/dL 0.50-1.04 = 7677115145) CALCIUM (test code = 8.9 mg/dL 8.6-10.6 0137991953) eGFR (test code = mL/min/1.73m2 9775219258) JENNIFFER (test code = JENNIFFER) Association of [...] or urine or abnormalities in imaging tests). [facility]16 Test Item Value Reference Range Interpretation Comments MAGNESIUM (test code = 4182255870) 1.9 mg/dL 1.7-2.4 Lab Interpretation (test code = Normal 44505-0) [facility] 11:36:18 Test Item Value Reference Range Interpretation Comments POCT GLU (test code = 2155944840) 95 mg/dL 70-110 Lab Interpretation (test code = Normal 12520-5) [facility] WITH [id number] 10:51:12 Test Item Value Reference Range Interpretation [...] RDW-SD (test code = 46.5 fL 39.0-49.9 50596-6) RDW-CV (test code = 14.3 % 12.0-15.5 788-0) PLT (test code = See_Comment [Automated 777-3) message] The sy stem which generated this result transmitted reference range : 166 - 358 10*3/ ?L. The reference r josselyn was not used to interpret this result as normal/abnormal . MPV (test code = 8.5 fL 9.5-12.9 L 80389-8) NRBC/100 WBC (test See_Comment [Automat ed code = 0123168990) message] The system which generated this result transmitted reference range : 0.0 - 10.0 /100 WBCs. The refer ence range was not u sed to interpret th is result as normal/abnormal . NRBC x10^3 (test code <0.01 See_Comment [Auto mated = 8929244893) message] The s ystem which generated this result transmitted reference range : 10*3/?L. The reference range was not used to interpret this result as normal/abnormal . GRAN MAT (NEUT) % 72.4 % (test code = 770-8) IMM GRAN % (test code 0.60 % = 5043589909) LYMPH % (test code = 12.0 % 736-9) MONO % (test code = 9.8 % 5905-5) EOS % (test code = 4.4 % 713-8) BASO % (test code = 0.8 % 706-2) GRAN MAT x10^3(ANC) 4.64 10*3/uL 1.88-7.09 (test code = 0921402702) IMM GRAN x10^3 (test 0.04 10*3/uL 0.00-0.06 code = 3395792267) LYMPH x10^3 (test code 0.77 10*3/uL 1.32-3.29 L = 731-0) MONO x10^3 (test code 0.63 10*3/uL 0.33-0.92 = 742-7) EOS x10^3 (test code = 0.28 10*3/uL 0.03-0.39 711-2) BASO x10^3 (test code 0.05 10*3/uL 0.01-0.07 = 704-7) Lab Interpretation Abnormal (test code = 71180-2) [facility] GLUCOSE (AUTOMATED)2022-01-11 04:16:05 Test Item Value Reference Range Interpretation Comments POCT GLU (test code = 6648387532) 100 mg/dL 70-110 Lab Interpretation (test code = Normal 98868-2) [facility] GLUCOSE (AUTOMATED)2022-01-10 22:37:14 Test Item Value Reference Range Interpretation Comments POCT GLU (test code = 4517388181) 109 mg/dL 70-110 Lab Interpretation (test code = Normal 66041-9) [facility] GLUCOSE (AUTOMATED)2022-01-10 16:49:31 Test Item Value Reference Range Interpretation Comments POCT GLU (test code = 0352147447) 151 mg/dL 70-110 H Lab Interpretation (test code = Abnormal 57922-6) [facility] GLUCOSE (AUTOMATED)2022-01-10 13:04:04 Test Item Value Reference Range Interpretation Comments POCT GLU (test code = 6462119105) 133 mg/dL 70-110 H Lab Interpretation (test code = Abnormal 47922-7) [facility] GLUCOSE (AUTOMATED)2022-01-10 10:48:27 Test Item Value Reference Range Interpretation Comments POCT GLU (test code = 1227047391) 140 mg/dL 70-110 H Lab Interpretation (test code = Abnormal 72765-7) [facility] METABOLIC PANEL (NA, K, CL, CO2, GLUCOSE, BUN, CREATININE, CA)2022-01-10 07:43:41 Test Item Value Reference Range Interpretation Comments NA (test code = 139 mmol/L 135-145 3664686038) K (test code = 4.1 mmol/L 3.5-5.0 7692027551) CL (test code = 100 mmol/L 98-108 5577833402) CO2 TOTAL (test code = 32 mmol/L 23-31 H 0692914789) AGAP (test code = 2-16 3415282123) BUN (test code = 18 mg/dL 7-23 0173734656) GLUCOSE (test code = 146 mg/dL 70-110 H 8544010302) CREATININE (test code = 0.79 mg/dL 0.50-1.04 0500826429) CALCIUM (test code = 8.7 mg/dL 8.6-10.6 5849692983) eGFR (test code = mL/min/1.73m2 4027526709) JENNIFFER (test code = JENNIFFER) Association of [...] tests). Lab Interpretation Abnormal (test code = 18806-1) [facility] 07[facility]43:41 Test Item Value Reference Range Interpretation Comments MAGNESIUM (test code = 3717246748) 2.1 mg/dL 1.7-2.4 Lab Interpretation (test code = Normal 35596-5) [facility] [id number] 07:29:01 Test Item Value Reference Range Interpretation [...] RDW-SD (test code = 47.2 fL 39.0-49.9 85470-8) RDW-CV (test code = 14.1 % 12.0-15.5 788-0) PLT (test code = See_Comment [Automated 777-3) message] The sy stem which generated this result transmitted reference range : 166 - 358 10*3/ ?L. The reference r josselyn was not used to interpret this result as normal/abnormal . MPV (test code = 8.3 fL 9.5-12.9 L 17548-1) NRBC/100 WBC (test See_Comment [Automat ed code = 1256960283) message] The system which generated this result transmitted reference range : 0.0 - 10.0 /100 WBCs. The refer ence range was not u sed to interpret th is result as normal/abnormal . NRBC x10^3 (test code <0.01 See_Comment [Auto mated = 9276301566) message] The s ystem which generated this result transmitted reference range : 10*3/?L. The reference range was not used to interpret this result as normal/abnormal . GRAN MAT (NEUT) % 75.5 % (test code = 770-8) IMM GRAN % (test code 0.50 % = 5535992025) LYMPH % (test code = 13.6 % 736-9) MONO % (test code = 5.4 % 5905-5) EOS % (test code = 4.4 % 713-8) BASO % (test code = 0.6 % 706-2) GRAN MAT x10^3(ANC) 5.01 10*3/uL 1.88-7.09 (test code = 7920662632) IMM GRAN x10^3 (test 0.03 10*3/uL 0.00-0.06 code = 5168307171) LYMPH x10^3 (test code 0.90 10*3/uL 1.32-3.29 L = 731-0) MONO x10^3 (test code 0.36 10*3/uL 0.33-0.92 = 742-7) EOS x10^3 (test code = 0.29 10*3/uL 0.03-0.39 711-2) BASO x10^3 (test code 0.04 10*3/uL 0.01-0.07 = 704-7) Lab Interpretation Abnormal (test code = 13225-2) [facility] GLUCOSE (AUTOMATED)2022-01-10 04:49:48 Test Item Value Reference Range Interpretation Comments POCT GLU (test code = 9892394069) 150 mg/dL 70-110 H Lab Interpretation (test code = Abnormal 06591-9) [facility] GLUCOSE (AUTOMATED)2022-01-09 17:24:10 Test Item Value Reference Range Interpretation Comments POCT GLU (test code = 3560254895) 114 mg/dL 70-110 H Lab Interpretation (test code = Abnormal 64672-1) [facility] GLUCOSE (AUTOMATED)2022-01-09 12:48:19 Test Item Value Reference Range Interpretation Comments POCT GLU (test code = 6021181166) 107 mg/dL 70-110 Lab Interpretation (test code = Normal 37563-1) [facility] METABOLIC PANEL (NA, K, CL, CO2, GLUCOSE, BUN, CREATININE, CA)2022-01-09 11:11:00 Test Item Value Reference Range Interpretation Comments NA (test code = 141 mmol/L 135-145 4009272825) K (test code = 3.7 mmol/L 3.5-5.0 6364292804) CL (test code = 100 mmol/L 98-108 6821258041) CO2 TOTAL (test code = 32 mmol/L 23-31 H 7372242472) AGAP (test code = 2-16 0748652896) BUN (test code = 19 mg/dL 7-23 7217633110) GLUCOSE (test code = 115 mg/dL 70-110 H 1495074908) CREATININE (test code = 0.81 mg/dL 0.50-1.04 9739608108) CALCIUM (test code = 8.6 mg/dL 8.6-10.6 2126769572) eGFR (test code = mL/min/1.73m2 8327348443) JENNIFFER (test code = JENNIFFER) Association of [...] tests). Lab Interpretation Abnormal (test code = 70433-3) [facility] WITH [id number] 10:57:57 Test Item Value Reference Range Interpretation Comments WBC (test code = See_Comment [Automated 4590-2) message] The sy stem which [...] RDW-SD (test code = 49.1 fL 39.0-49.9 48980-5) RDW-CV (test code = 14.6 % 12.0-15.5 788-0) PLT (test code = See_Comment [Automated 777-3) message] The sy stem which generated this result transmitted reference range : 166 - 358 10*3/ ?L. The reference r josselyn was not used to interpret this result as normal/abnormal . MPV (test code = 8.6 fL 9.5-12.9 L 08414-0) NRBC/100 WBC (test See_Comment [Automat ed code = 8493458909) message] The system which generated this result transmitted reference range : 0.0 - 10.0 /100 WBCs. The refer ence range was not u sed to interpret th is result as normal/abnormal . NRBC x10^3 (test code <0.01 See_Comment [Auto mated = 3777294342) message] The s ystem which generated this result transmitted reference range : 10*3/?L. The reference range was not used to interpret this result as normal/abnormal . GRAN MAT (NEUT) % 79.2 % (test code = 770-8) IMM GRAN % (test code 0.40 % = 1219399720) LYMPH % (test code = 10.7 % 736-9) MONO % (test code = 5.4 % 5905-5) EOS % (test code = 3.5 % 713-8) BASO % (test code = 0.8 % 706-2) GRAN MAT x10^3(ANC) 6.15 10*3/uL 1.88-7.09 (test code = 5265264590) IMM GRAN x10^3 (test 0.03 10*3/uL 0.00-0.06 code = 0798841142) LYMPH x10^3 (test code 0.83 10*3/uL 1.32-3.29 L = 731-0) MONO x10^3 (test code 0.42 10*3/uL 0.33-0.92 = 742-7) EOS x10^3 (test code = 0.27 10*3/uL 0.03-0.39 711-2) BASO x10^3 (test code 0.06 10*3/uL 0.01-0.07 = 704-7) Lab Interpretation Abnormal (test code = 87044-6) [facility] GLUCOSE (AUTOMATED)2022-01-09 10:44:16 Test Item Value Reference Range Interpretation Comments POCT GLU (test code = 6721822553) 116 mg/dL 70-110 H Lab Interpretation (test code = Abnormal 39874-6) [facility] GLUCOSE (AUTOMATED)2022-01-09 04:22:02 Test Item Value Reference Range Interpretation Comments POCT GLU (test code = 2909069423) 124 mg/dL 70-110 H Lab Interpretation (test code = Abnormal 53683-7) [facility] GLUCOSE (AUTOMATED)2022-01-08 23:21:27 Test Item Value Reference Range Interpretation Comments POCT GLU (test code = 2086650239) 122 mg/dL 70-110 H Lab Interpretation (test code = Abnormal 67435-8) [facility] GLUCOSE (AUTOMATED)2022-01-08 18:15:20 Test Item Value Reference Range Interpretation Comments POCT GLU (test code = 0073354337) 104 mg/dL 70-110 Lab Interpretation (test code = Normal 99211-7) [facility] GLUCOSE (AUTOMATED)2022-01-08 13:35:04 Test Item Value Reference Range Interpretation Comments POCT GLU (test code = 5077968036) 132 mg/dL 70-110 H Lab Interpretation (test code = Abnormal 25955-2) [facility] METABOLIC PANEL (NA, K, CL, CO2, GLUCOSE, BUN, CREATININE, CA)2022-01-08 11:08:57 Test Item Value Reference Range Interpretation Comments NA (test code = 142 mmol/L 135-145 7447533162) K (test code = 3.5 mmol/L 3.5-5.0 7711439851) CL (test code = 99 mmol/L 98-108 4098516884) CO2 TOTAL (test code = 34 mmol/L 23-31 H 3325750618) AGAP (test code = 2-16 8444478917) BUN (test code = 16 mg/dL 7-23 1351937348) GLUCOSE (test code = 131 mg/dL 70-110 H 2353715717) CREATININE (test code = 0.83 mg/dL 0.50-1.04 5476096344) CALCIUM (test code = 8.5 mg/dL 8.6-10.6 L 9378429765) eGFR (test code = mL/min/1.73m2 2281252119) JENNIFFER (test code = JENNIFFER) Association of [...] tests). Lab Interpretation Abnormal (test code = 78370-7) [facility] WITH [id number] 10:58:37 Test Item Value Reference Range Interpretation Comments WBC (test code = See_Comment [Automated 9501-2) message] The sy stem which generated this result transmitted reference range : 4.30 - 11.10 10*3/?L. The reference range was not used to interpret this result as normal/abnormal . RBC (test code = See_Comment L [Automated 786-8) message] The sy stem which generated this [...] RDW-SD (test code = 48.8 fL 39.0-49.9 76217-6) RDW-CV (test code = 14.7 % 12.0-15.5 788-0) PLT (test code = See_Comment [Automated 777-3) message] The sy stem which generated this result transmitted reference range : 166 - 358 10*3/ ?L. The reference r josselyn was not used to interpret this result as normal/abnormal . MPV (test code = 8.5 fL 9.5-12.9 L 81982-4) NRBC/100 WBC (test See_Comment [Automat ed code = 0757444613) message] The system which generated this result transmitted reference range : 0.0 - 10.0 /100 WBCs. The refer ence range was not u sed to interpret th is result as normal/abnormal . NRBC x10^3 (test code <0.01 See_Comment [Auto mated = 1320750026) message] The s ystem which generated this result transmitted reference range : 10*3/?L. The reference range was not used to interpret this result as normal/abnormal . GRAN MAT (NEUT) % 75.9 % (test code = 770-8) IMM GRAN % (test code 0.30 % = 8316547851) LYMPH % (test code = 12.3 % 736-9) MONO % (test code = 7.0 % 5905-5) EOS % (test code = 3.6 % 713-8) BASO % (test code = 0.9 % 706-2) GRAN MAT x10^3(ANC) 4.89 10*3/uL 1.88-7.09 (test code = 0799827307) IMM GRAN x10^3 (test <0.03 0.00-0.06 code = 7396258666) LYMPH x10^3 (test code 0.79 10*3/uL 1.32-3.29 L = 731-0) MONO x10^3 (test code 0.45 10*3/uL 0.33-0.92 = 742-7) EOS x10^3 (test code = 0.23 10*3/uL 0.03-0.39 711-2) BASO x10^3 (test code 0.06 10*3/uL 0.01-0.07 = 704-7) Lab Interpretation Abnormal (test code = 24630-7) [facility] GLUCOSE (AUTOMATED)2022-01-08 10:57:56 Test Item Value Reference Range Interpretation Comments POCT GLU (test code = 3758036076) 122 mg/dL 70-110 H Lab Interpretation (test code = Abnormal 50702-0) [facility] GLUCOSE (AUTOMATED)2022-01-08 05:44:22 Test Item Value Reference Range Interpretation Comments POCT GLU (test code = 4443652619) 150 mg/dL 70-110 H Lab Interpretation (test code = Abnormal 74457-0) [facility] GLUCOSE (AUTOMATED)2022-01-07 22:00:04 Test Item Value Reference Range Interpretation Comments POCT GLU (test code = 5475395604) 175 mg/dL 70-110 H Lab Interpretation (test code = Abnormal 98795-0) [facility] GLUCOSE (AUTOMATED)2022-01-07 17:25:35 Test Item Value Reference Range Interpretation Comments POCT GLU (test code = 7700647645) 149 mg/dL 70-110 H Lab Interpretation (test code = Abnormal 58848-3) [facility] [id number] 15:01:23 Test Item Value Reference Range Interpretation Comments Blood Culture-Aerobic No organisms No growth Previo us (test code = 24818-6) isolated prelim inary verified result was Culture [...] Culture-Anaerobic isolated preliminar y (test code = 58427-5) verifi ed result was Culture In Progress on 01/02/2022 at 13 CDTPrevious preliminary verified result was No growth a t 24 hours on 01/03/2022 at 10 CDTPrevious preliminary verified result was No growth a t 48 hours on 01/04/2022 at 10 CDTPrevious preliminary verified result was No growth a t 72 hours on 01/05/2022 at 10 CDT Lab Interpretation Normal (test code = 61178-8) [facility] Vein # [id number] 15:01:23 Test Item Value Reference Range Interpretation Comments Blood Culture-Aerobic No organisms No growth Previo us (test code = 80923-0) isolated prelim inary verified result was Culture [...] Culture-Anaerobic isolated preliminar y (test code = 42140-3) verifi ed result was Culture In Progress [...] CDT Lab Interpretation Normal (test code = 14060-7) [facility]07 13:20:20 Test Item Value Reference Range Interpretation Comments POCT GLU (test code = 3429231787) 153 mg/dL 70-110 H Lab Interpretation (test code = Abnormal 18310-1) [facility] (NA, K, CL, CO2, GLUCOSE, BUN, CREATININE, CA)2022-01-07 07:43:22 Test Item Value Reference Range Interpretation Comments NA (test code = 141 mmol/L 135-145 4794660498) K (test code = 3.8 mmol/L 3.5-5.0 0219217049) CL (test code = 101 mmol/L 98-108 7821060797) CO2 TOTAL (test code = 33 mmol/L 23-31 H 8172583730) AGAP (test code = 2-16 7280960480) BUN (test code = 13 mg/dL 7-23 8700135521) GLUCOSE (test code = 127 mg/dL 70-110 H 8723747385) CREATININE (test code = 0.89 mg/dL 0.50-1.04 9811929576) CALCIUM (test code = 8.4 mg/dL 8.6-10.6 L 4559024288) eGFR (test code = mL/min/1.73m2 8849974704) JENNIFFER (test code = JENNIFFER) Association of [...] tests). Lab Interpretation Abnormal (test code = 51201-2) [facility] with [id number] 07:29:22 Test Item Value Reference Range Interpretation [...] RDW-SD (test code = 48.2 fL 39.0-49.9 50959-4) RDW-CV (test code = 14.7 % 12.0-15.5 788-0) PLT (test code = See_Comment [Automated 777-3) message] The sy stem which generated this result transmitted reference range : 166 - 358 10*3/ ?L. The reference r josselyn was not used to interpret this result as normal/abnormal . MPV (test code = 9.0 fL 9.5-12.9 L 40781-4) NRBC/100 WBC (test See_Comment [Automat ed code = 2933196926) message] The system which generated this result transmitted reference range : 0.0 - 10.0 /100 WBCs. The refer ence range was not u sed to interpret th is result as normal/abnormal . NRBC x10^3 (test code <0.01 See_Comment [Auto mated = 7156082139) message] The s ystem which generated this result transmitted reference range : 10*3/?L. The reference range was not used to interpret this result as normal/abnormal . GRAN MAT (NEUT) % 81.4 % (test code = 770-8) IMM GRAN % (test code 0.30 % = 1094856905) LYMPH % (test code = 10.3 % 736-9) MONO % (test code = 4.6 % 5905-5) EOS % (test code = 2.8 % 713-8) BASO % (test code = 0.6 % 706-2) GRAN MAT x10^3(ANC) 6.39 10*3/uL 1.88-7.09 (test code = 6753714733) IMM GRAN x10^3 (test <0.03 0.00-0.06 code = 8321614618) LYMPH x10^3 (test code 0.81 10*3/uL 1.32-3.29 L = 731-0) MONO x10^3 (test code 0.36 10*3/uL 0.33-0.92 = 742-7) EOS x10^3 (test code = 0.22 10*3/uL 0.03-0.39 711-2) BASO x10^3 (test code 0.05 10*3/uL 0.01-0.07 = 704-7) Lab Interpretation Abnormal (test code = 45336-8) [facility] 05:54:55 Test Item Value Reference Range Interpretation Comments POCT GLU (test code = 2399768556) 125 mg/dL 70-110 H Lab Interpretation (test code = Abnormal 12887-4) [facility] [id number] 04:01:23 Test Item Value Reference Range Interpretation Comments Blood Culture-Aerobic No organisms No growth Previo us (test code = 85063-3) isolated prelim inary verified result was Culture [...] Culture-Anaerobic isolated preliminar y (test code = 21827-3) verifi ed result was Culture In Progress [...] accordingly. Lab Interpretation Normal (test code = 83852-3) [facility] [id number]:01:22 Test Item Value Reference Range Interpretation Comments Blood Culture-Aerobic No organisms No growth Previo us (test code = 34949-8) isolated prelim inary verified result was Culture [...] Culture-Anaerobic isolated preliminar y (test code = 52523-7) verifi ed result was Culture In Progress [...] accordingly. Lab Interpretation Normal (test code = 43502-2) [facility] 23:38:26 Test Item Value Reference Range Interpretation Comments POCT GLU (test code = 1839941163) 181 mg/dL 70-110 H Lab Interpretation (test code = Abnormal 25861-3) [facility] GLUCOSE (AUTOMATED)2022-01-06 22:44:50 Test Item Value Reference Range Interpretation Comments POCT GLU (test code = 6588986702) 198 mg/dL 70-110 H Lab Interpretation (test code = Abnormal 07588-3) [facility] GLUCOSE (AUTOMATED)2022-01-06 17:41:24 Test Item Value Reference Range Interpretation Comments POCT GLU (test code = 1274043661) 172 mg/dL 70-110 H Lab Interpretation (test code = Abnormal 26896-6) [facility] GLUCOSE (AUTOMATED)2022-01-06 13:48:08 Test Item Value Reference Range Interpretation Comments POCT GLU (test code = 7106506922) 175 mg/dL 70-110 H Lab Interpretation (test code = Abnormal 84606-5) [facility] METABOLIC PANEL (NA, K, CL, CO2, GLUCOSE, BUN, CREATININE, CA)2022-01-06 09:39:37 Test Item Value Reference Range Interpretation Comments NA (test code = 139 mmol/L 135-145 9857895697) K (test code = 3.6 mmol/L 3.5-5.0 4712336880) CL (test code = 104 mmol/L 98-108 6336598469) CO2 TOTAL (test code = 30 mmol/L 23-31 4740756080) AGAP (test code = 2-16 2084699617) BUN (test code = 15 mg/dL 7-23 8135075153) GLUCOSE (test code = 164 mg/dL 70-110 H 1071301600) CREATININE (test code = 0.83 mg/dL 0.50-1.04 8030866590) CALCIUM (test code = 7.9 mg/dL 8.6-10.6 L 5968160790) eGFR (test code = mL/min/1.73m2 1764466254) JENNIFFER (test code = JENNIFFER) Association of [...] tests). Lab Interpretation Abnormal (test code = 44527-7) [facility] 09:39:37 Test Item Value Reference Range Interpretation Comments MAGNESIUM (test code = 4852958432) 2.5 mg/dL 1.7-2.4 H Lab Interpretation (test code = Abnormal 66534-1) [facility] 09:39:37 Test Item Value Reference Range Interpretation Comments PHOSPHORUS (test code = 8362544078) 3.8 mg/dL 2.5-5.0 Lab Interpretation (test code = Normal 48631-7) [facility] WITH [id number] 09:29:28 Test Item Value Reference Range Interpretation [...] RDW-SD (test code = 46.7 fL 39.0-49.9 07820-9) RDW-CV (test code = 14.5 % 12.0-15.5 788-0) PLT (test code = See_Comment [Automated 777-3) message] The sy stem which generated this result transmitted reference range : 166 - 358 10*3/ ?L. The reference r josselyn was not used to interpret this result as normal/abnormal . MPV (test code = 8.9 fL 9.5-12.9 L 00440-2) NRBC/100 WBC (test See_Comment [Automat ed code = 1036995779) message] The system which generated this result transmitted reference range : 0.0 - 10.0 /100 WBCs. The refer ence range was not u sed to interpret th is result as normal/abnormal . NRBC x10^3 (test code <0.01 See_Comment [Auto mated = 2212816994) message] The s ystem which generated this result transmitted reference range : 10*3/?L. The reference range was not used to interpret this result as normal/abnormal . GRAN MAT (NEUT) % 74.7 % (test code = 770-8) IMM GRAN % (test code 0.30 % = 1934721476) LYMPH % (test code = 15.5 % 736-9) MONO % (test code = 5.5 % 5905-5) EOS % (test code = 3.3 % 713-8) BASO % (test code = 0.7 % 706-2) GRAN MAT x10^3(ANC) 4.34 10*3/uL 1.88-7.09 (test code = 0882345241) IMM GRAN x10^3 (test <0.03 0.00-0.06 code = 5398628805) LYMPH x10^3 (test code 0.90 10*3/uL 1.32-3.29 L = 731-0) MONO x10^3 (test code 0.32 10*3/uL 0.33-0.92 L = 742-7) EOS x10^3 (test code = 0.19 10*3/uL 0.03-0.39 711-2) BASO x10^3 (test code 0.04 10*3/uL 0.01-0.07 = 704-7) Lab Interpretation Abnormal (test code = 17547-1) [facility] GLUCOSE (AUTOMATED)2022-01-05 20:46:31 Test Item Value Reference Range Interpretation Comments POCT GLU (test code = 3681077907) 175 mg/dL 70-110 H Lab Interpretation (test code = Abnormal 01153-5) [facility] GLUCOSE (AUTOMATED)2022-01-05 17:13:26 Test Item Value Reference Range Interpretation Comments POCT GLU (test code = 9145908310) 233 mg/dL 70-110 H Lab Interpretation (test code = Abnormal 04458-2) [facility] GLUCOSE (AUTOMATED)2022-01-05 13:24:19 Test Item Value Reference Range Interpretation Comments POCT GLU (test code = 2324864313) 208 mg/dL 70-110 H Lab Interpretation (test code = Abnormal 62078-1) [facility] METABOLIC PANEL (NA, K, CL, CO2, GLUCOSE, BUN, CREATININE, CA)2022-01-05 09:23:42 Test Item Value Reference Range Interpretation Comments NA (test code = 139 mmol/L 135-145 2804598280) K (test code = 3.7 mmol/L 3.5-5.0 9187511154) CL (test code = 102 mmol/L 98-108 1218900375) CO2 TOTAL (test code = 31 mmol/L 23-31 2600247650) AGAP (test code = 2-16 3070305532) BUN (test code = 19 mg/dL 7-23 1776880772) GLUCOSE (test code = 166 mg/dL 70-110 H 8440562214) CREATININE (test code = 0.85 mg/dL 0.50-1.04 5507750365) CALCIUM (test code = 8.1 mg/dL 8.6-10.6 L 2077726546) eGFR (test code = mL/min/1.73m2 7349338338) JENNIFFER (test code = JENNIFFER) Association of [...] tests). Lab Interpretation Abnormal (test code = 52872-9) [facility] Test Item Value Reference Range Interpretation Comments MAGNESIUM (test code = 9810852085) 2.3 mg/dL 1.7-2.4 Lab Interpretation (test code = Normal 60410-5) [facility] Test Item Value Reference Range Interpretation Comments PHOSPHORUS (test code = 1033412591) 3.5 mg/dL 2.5-5.0 Lab Interpretation (test code = Normal 68236-4) [id number] 09:15:04 Test Item Value Reference Range Interpretation [...] RDW-SD (test code = 46.4 fL 39.0-49.9 32266-1) RDW-CV (test code = 14.4 % 12.0-15.5 788-0) PLT (test code = See_Comment [Automated 777-3) message] The sy stem which generated this result transmitted reference range : 166 - 358 10*3/ ?L. The reference r josselyn was not used to interpret this result as normal/abnormal . MPV (test code = 8.9 fL 9.5-12.9 L 99964-1) NRBC/100 WBC (test See_Comment [Automat ed code = 7662414290) message] The system which generated this result transmitted reference range : 0.0 - 10.0 /100 WBCs. The refer ence range was not u sed to interpret th is result as normal/abnormal . NRBC x10^3 (test code <0.01 See_Comment [Auto mated = 0164223173) message] The s ystem which generated this result transmitted reference range : 10*3/?L. The reference range was not used to interpret this result as normal/abnormal . GRAN MAT (NEUT) % 71.1 % (test code = 770-8) IMM GRAN % (test code 0.30 % = 4609272209) LYMPH % (test code = 17.7 % 736-9) MONO % (test code = 7.2 % 5905-5) EOS % (test code = 2.6 % 713-8) BASO % (test code = 1.1 % 706-2) GRAN MAT x10^3(ANC) 4.43 10*3/uL 1.88-7.09 (test code = 3322839798) IMM GRAN x10^3 (test <0.03 0.00-0.06 code = 0412693765) LYMPH x10^3 (test code 1.10 10*3/uL 1.32-3.29 L = 731-0) MONO x10^3 (test code 0.45 10*3/uL 0.33-0.92 = 742-7) EOS x10^3 (test code = 0.16 10*3/uL 0.03-0.39 711-2) BASO x10^3 (test code 0.07 10*3/uL 0.01-0.07 = 704-7) Lab Interpretation Abnormal (test code = 47892-5) [facility] GLUCOSE (AUTOMATED)2022-01-05 05:12:00 Test Item Value Reference Range Interpretation Comments POCT GLU (test code = 6525808875) 178 mg/dL 70-110 H Lab Interpretation (test code = Abnormal 74548-6) [facility] GLUCOSE (AUTOMATED)2022-01-04 22:12:41 Test Item Value Reference Range Interpretation Comments POCT GLU (test code = 3124507727) 154 mg/dL 70-110 H Lab Interpretation (test code = Abnormal 15817-4) [facility] GLUCOSE (AUTOMATED)2022-01-04 17:15:55 Test Item Value Reference Range Interpretation Comments POCT GLU (test code = 3510720803) 204 mg/dL 70-110 H Lab Interpretation (test code = Abnormal 88123-7) [id number] 13:56:02 Test Item Value Reference Range Interpretation Comments SPUTUM CULTURE 1+ Respiratory iveth: (test code = 622-1) Commensal upper respiratory microorganisms only. Gram stain (test No Epithelial cells code = 664-3) JENNIFFER (test code = Bacterial pathogens JENNIFFER) associated with lower respiratory infections were not identified, which include Pseudomonas aeruginosa and Staphylococcus aureus (MRSA or MSSA). [facility] Please draw trough at [id number] 11:47:19 Test Item Value Reference Range Interpretation Comments VANCO TROUGH (test code 11.3 ug/mL 10.0-20.0 = 3818229580) JENNIFFER (test code = JENNIFFER) Toxic Range: ?>20 ug/mL 15-20 ug/mL is recommended for severe infection or when Vancomycin TORITO is greater than or equal to 2. Lab Interpretation (test Normal code = 96295-4) [facility] GLUCOSE (AUTOMATED)2022-01-04 11:19:57 Test Item Value Reference Range Interpretation Comments POCT GLU (test code = 3603737448) 189 mg/dL 70-110 H Lab Interpretation (test code = Abnormal 46661-3) [facility] (NA, K, CL, CO2, GLUCOSE, BUN, CREATININE, CA)2022-01-04 11:17:16 Test Item Value Reference Range Interpretation Comments NA (test code = 140 mmol/L 135-145 9534143855) K (test code = 3.3 mmol/L 3.5-5.0 L 3312789619) CL (test code = 99 mmol/L 98-108 7370431076) CO2 TOTAL (test code = 35 mmol/L 23-31 H 7552572588) AGAP (test code = 2-16 6402965185) BUN (test code = 18 mg/dL 7-23 3830765381) GLUCOSE (test code = 172 mg/dL 70-110 H 5007540590) CREATININE (test code = 0.89 mg/dL 0.50-1.04 2071423694) CALCIUM (test code = 8.2 mg/dL 8.6-10.6 L 0980338763) eGFR (test code = mL/min/1.73m2 0575946242) JENNIFFER (test code = JENNIFFER) Association of [...] tests). Lab Interpretation Abnormal (test code = 34405-5) [facility] 11:17:16 Test Item Value Reference Range Interpretation Comments MAGNESIUM (test code = 4021878154) 2.3 mg/dL 1.7-2.4 Lab Interpretation (test code = Normal 82076-0) [facility] 11:17:16 Test Item Value Reference Range Interpretation Comments PHOSPHORUS (test code = 9774171186) 2.7 mg/dL 2.5-5.0 Lab Interpretation (test code = Normal 83921-6) [facility] [id number] 11:03:17 Test Item Value Reference Range Interpretation [...] RDW-SD (test code = 46.0 fL 39.0-49.9 81226-3) RDW-CV (test code = 14.4 % 12.0-15.5 788-0) PLT (test code = See_Comment [Automated 777-3) message] The sy stem which generated this result transmitted reference range : 166 - 358 10*3/ ?L. The reference r josselyn was not used to interpret this result as normal/abnormal . MPV (test code = 9.1 fL 9.5-12.9 L 62968-1) NRBC/100 WBC (test See_Comment [Automat ed code = 9082210729) message] The system which generated this result transmitted reference range : 0.0 - 10.0 /100 WBCs. The refer ence range was not u sed to interpret th is result as normal/abnormal . NRBC x10^3 (test code <0.01 See_Comment [Auto mated = 3159980091) message] The s ystem which generated this result transmitted reference range : 10*3/?L. The reference range was not used to interpret this result as normal/abnormal . GRAN MAT (NEUT) % 78.8 % (test code = 770-8) IMM GRAN % (test code 0.50 % = 0024806638) LYMPH % (test code = 11.8 % 736-9) MONO % (test code = 6.8 % 5905-5) EOS % (test code = 1.4 % 713-8) BASO % (test code = 0.7 % 706-2) GRAN MAT x10^3(ANC) 6.65 10*3/uL 1.88-7.09 (test code = 4488773014) IMM GRAN x10^3 (test 0.04 10*3/uL 0.00-0.06 code = 1149922265) LYMPH x10^3 (test code 1.00 10*3/uL 1.32-3.29 L = 731-0) MONO x10^3 (test code 0.57 10*3/uL 0.33-0.92 = 742-7) EOS x10^3 (test code = 0.12 10*3/uL 0.03-0.39 711-2) BASO x10^3 (test code 0.06 10*3/uL 0.01-0.07 = 704-7) Lab Interpretation Abnormal (test code = 13675-8) [facility] GLUCOSE (AUTOMATED)2022-01-04 06:29:40 Test Item Value Reference Range Interpretation Comments POCT GLU (test code = 7106967817) 211 mg/dL 70-110 H Lab Interpretation (test code = Abnormal 75715-5) [facility] GLUCOSE (AUTOMATED)2022-01-03 21:23:29 Test Item Value Reference Range Interpretation Comments POCT GLU (test code = 255 mg/dL 70-110 H Notifi ed Provider 3008178432) Lab Interpretation (test Abnormal code = 46427-6) [facility] GLUCOSE (AUTOMATED)2022-01-03 16:51:46 Test Item Value Reference Range Interpretation Comments POCT GLU (test code = 332 mg/dL 70-110 H Notifi ed Provider 7548067195) Lab Interpretation (test Abnormal code = 25870-1) [facility] GLUCOSE (AUTOMATED)2022-01-03 13:01:05 Test Item Value Reference Range Interpretation Comments POCT GLU (test code = 5860937572) 332 mg/dL 70-110 H Lab Interpretation (test code = Abnormal 52951-1) [facility] + Lactic [id number] 10:21:11 Test Item Value Reference Range Interpretation Comments PH (test code = 2) 7.35-7.45 PCO2 (test code = See_Comment H [Automate d 2320540434) message] The sy stem which generated this result transmitted reference range : 35 - 45 mmHg. The reference range was not used to interpret this result as normal/abnormal . PO2 (test code = See_Comment [Automated 7433889032) message] The sy stem which generated this result transmitted reference range : 80 - 100 mmHg. The reference range was not used to interpret this result as normal/abnormal . HCO3 (test code = See_Comment H [Automate d 7781112677) message] The sy stem which generated this result transmitted reference range : 22 - 26 mEq/L. The reference range was not used to interpret this result as normal/abnormal . BE (test code = See_Comment H [Automated 1079453416) message] The sy stem which generated this result transmitted reference range : -3.0 - 3.0 mEq/ L. The reference r josselyn was not used to interpret this result as normal/abnormal . THB (test code = 10.1 g/dL 12.0-16.0 L 8378183730) %O2HB (test code = 95.5 % 94.0-99.0 4096395473) %COHB ART (test code = 0.3 % 0.0-1.5 5040048565) %METHB ART (test code = 0.1 % 0.4-1.5 L 7325499534) VOL%O2 ART (test code = 13.7 % 15.0-23.0 L 1518302565) NA (test code = 138 mmol/L 135-145 5794953376) K+ (test code = 4.1 mmol/L 3.5-5.0 4752203175) AC CA IONZ (test code = 4.50 mg/dL 4.50-5.30 3802534096) GLUCOSE (test code = 325 mg/dL 70-110 H 5599739243) LACTIC ACID (test code 1.27 mmol/L 0.50-2.20 = 5176379085) Lab Interpretation Abnormal (test code = 07312-5) [facility] 10:18:30 Test Item Value Reference Range Interpretation Comments POCT GLU (test code = 6299834941) 338 mg/dL 70-110 H Lab Interpretation (test code = Abnormal 27495-5) [facility] METABOLIC PANEL (NA, K, CL, CO2, GLUCOSE, BUN, CREATININE, CA)2022-01-03 09:15:37 Test Item Value Reference Range Interpretation Comments NA (test code = 141 mmol/L 135-145 2243020442) K (test code = 4.3 mmol/L 3.5-5.0 5586063907) CL (test code = 103 mmol/L 98-108 4214132959) CO2 TOTAL (test code = 34 mmol/L 23-31 H 6277433056) AGAP (test code = 2-16 2480807148) BUN (test code = 19 mg/dL 7-23 2873319747) GLUCOSE (test code = 295 mg/dL 70-110 H 7510850342) CREATININE (test code = 0.80 mg/dL 0.50-1.04 8489246720) CALCIUM (test code = 7.9 mg/dL 8.6-10.6 L 0925544011) eGFR (test code = mL/min/1.73m2 1255542037) JENNIFFER (test code = JENNIFFER) Association of [...] tests). Lab Interpretation Abnormal (test code = 55318-5) [facility] 09:15:12 Test Item Value Reference Range Interpretation Comments MAGNESIUM (test code = 3885759269) 2.3 mg/dL 1.7-2.4 Lab Interpretation (test code = Normal 04946-1) [facility] WITH [id number] 09:02:53 Test Item Value Reference Range Interpretation [...] RDW-SD (test code = 46.8 fL 39.0-49.9 51683-4) RDW-CV (test code = 14.3 % 12.0-15.5 788-0) PLT (test code = See_Comment [Automated 777-3) message] The sy stem which generated this result transmitted reference range : 166 - 358 10*3/ ?L. The reference r josselyn was not used to interpret this result as normal/abnormal . MPV (test code = 9.1 fL 9.5-12.9 L 87947-6) NRBC/100 WBC (test See_Comment [Automat ed code = 7130011701) message] The system which generated this result transmitted reference range : 0.0 - 10.0 /100 WBCs. The refer ence range was not u sed to interpret th is result as normal/abnormal . NRBC x10^3 (test code <0.01 See_Comment [Auto mated = 5999888866) message] The s ystem which generated this result transmitted reference range : 10*3/?L. The reference range was not used to interpret this result as normal/abnormal . GRAN MAT (NEUT) % 86.9 % (test code = 770-8) IMM GRAN % (test code 0.50 % = 3009028909) LYMPH % (test code = 6.5 % 736-9) MONO % (test code = 5.2 % 5905-5) EOS % (test code = 0.6 % 713-8) BASO % (test code = 0.3 % 706-2) GRAN MAT x10^3(ANC) 8.30 10*3/uL 1.88-7.09 H (test code = 6152084510) IMM GRAN x10^3 (test 0.05 10*3/uL 0.00-0.06 code = 3527406575) LYMPH x10^3 (test code 0.62 10*3/uL 1.32-3.29 L = 731-0) MONO x10^3 (test code 0.50 10*3/uL 0.33-0.92 = 742-7) EOS x10^3 (test code = 0.06 10*3/uL 0.03-0.39 711-2) BASO x10^3 (test code 0.03 10*3/uL 0.01-0.07 = 704-7) Lab Interpretation Abnormal (test code = 94983-0) [facility] GLUCOSE (AUTOMATED)2022-01-03 04:48:55 Test Item Value Reference Range Interpretation Comments POCT GLU (test code = 8756475494) 258 mg/dL 70-110 H Lab Interpretation (test code = Abnormal 87361-5) [facility] GLUCOSE (AUTOMATED)2022-01-02 22:17:43 Test Item Value Reference Range Interpretation Comments POCT GLU (test code = 274 mg/dL 70-110 H Notifi ed Provider 1535188691) Lab Interpretation (test Abnormal code = 46698-4) [facility] GLUCOSE (AUTOMATED)2022-01-02 16:29:06 Test Item Value Reference Range Interpretation Comments POCT GLU (test code = 321 mg/dL 70-110 H Notifi ed Provider 3050664011) Lab Interpretation (test Abnormal code = 19106-6) [facility] 15:12:15 Test Item Value Reference Range Interpretation Comments HGB A1C (test code = 10.4 % 4.0-5.7 H 4548-4) JENNIFFER (test code = JENNIFFER) Reference RangesNormal: <5.7%Prediabetes: 5.7 - 6.4%Diabetes: > 6.5% Lab Interpretation (test Abnormal code = 93528-9) [facility] + Lactic [id number] 12:41:39 Test Item Value Reference Range Interpretation Comments PH (test code = 2) 7.35-7.45 L PCO2 (test code = See_Comment H [Automate d 9365257518) message] The sy stem which generated this result transmitted reference range : 35 - 45 mmHg. The reference range was not used to interpret this result as normal/abnormal . PO2 (test code = See_Comment H [Automated 7057072680) message] The sy stem which generated this result transmitted reference range : 80 - 100 mmHg. The reference range was not used to interpret this result as normal/abnormal . HCO3 (test code = See_Comment [Automate d 4124853344) message] The sy stem which generated this result transmitted reference range : 22 - 26 mEq/L. The reference range was not used to interpret this result as normal/abnormal . BE (test code = See_Comment [Automated 7690651154) message] The sy stem which generated this result transmitted reference range : -3.0 - 3.0 mEq/ L. The reference r josselyn was not used to interpret this result as normal/abnormal . THB (test code = 10.0 g/dL 12.0-16.0 L 4332595005) %O2HB (test code = 97.7 % 94.0-99.0 8315037693) %COHB ART (test code = 0.3 % 0.0-1.5 6335511049) %METHB ART (test code = 0.2 % 0.4-1.5 L 5246646992) VOL%O2 ART (test code = 14.0 % 15.0-23.0 L 9376942245) NA (test code = 137 mmol/L 135-145 3997027636) K+ (test code = 5.2 mmol/L 3.5-5.0 H 6305139895) AC CA IONZ (test code = 4.60 mg/dL 4.50-5.30 8484239545) GLUCOSE (test code = 306 mg/dL 70-110 H 2788615030) LACTIC ACID (test code 0.77 mmol/L 0.50-2.20 = 0745875125) Lab Interpretation Abnormal (test code = 04689-3) [facility] 12:28:29 Test Item Value Reference Range Interpretation Comments POCT GLU (test code = 362 mg/dL 70-110 H Notifi ed Provider 3515842546) Lab Interpretation (test Abnormal code = 74480-1) [facility] Metabolic Panel (NA, K, CL, CO2, Glucose, BUN, Creatinine, CA)2022-01-02 11:02:42 Test Item Value Reference Range Interpretation Comments NA (test code = 138 mmol/L 135-145 8332610788) K (test code = 5.3 mmol/L 3.5-5.0 H 3238498990) CL (test code = 102 mmol/L 98-108 9580326273) CO2 TOTAL (test code = 29 mmol/L 23-31 0859710177) AGAP (test code = 2-16 1231326029) BUN (test code = 17 mg/dL 7-23 6578462901) GLUCOSE (test code = 343 mg/dL 70-110 H 2673768233) CREATININE (test code = 0.81 mg/dL 0.50-1.04 9234438323) CALCIUM (test code = 8.1 mg/dL 8.6-10.6 L 5103875552) eGFR (test code = mL/min/1.73m2 9680736341) JENNIFFER (test code = JENNIFFER) Association of [...] tests). Lab Interpretation Abnormal (test code = 35810-2) [facility] with [id number] 10:52:23 Test Item Value Reference Range Interpretation Comments WBC (test code = See_Comment H [Automated 9290-2) message] The system which generated this result transmit alden reference range : 4.30 - 11.10 10*3/?L. The reference range was not used to interpret this result as normal/abnormal . RBC (test code = See_Comment L [Automated 209-8) message] The system which generated this result [...] RDW-SD (test code = 49.3 fL 39.0-49.9 74141-4) RDW-CV (test code = 14.7 % 12.0-15.5 788-0) PLT (test code = See_Comment [Automated 777-3) message] The system which generated this result transmit alden reference range : 166 - 358 10*3/ ?L. The reference range was not u sed to interpret th is result as normal/abnormal . MPV (test code = 9.8 fL 9.5-12.9 60591-3) NRBC/100 WBC (test See_Comment [Automat ed code = 1849963204) message] The system which generated this result transmit alden reference range : 0.0 - 10.0 /100 WBCs. The reference range was not used to interpret this result as normal/abnormal . NRBC x10^3 (test code <0.01 See_Comment [Auto mated = 5344637623) message] The system which generated this result transmit alden reference range : 10*3/?L. The reference range was not used to interpret this result as normal/abnormal . GRAN MAT (NEUT) % 90.3 % (test code = 770-8) IMM GRAN % (test code 1.00 % = 5251319019) LYMPH % (test code = 4.0 % 736-9) MONO % (test code = 4.0 % 5905-5) EOS % (test code = 0.3 % 713-8) BASO % (test code = 0.4 % 706-2) GRAN MAT x10^3(ANC) 13.28 10*3/uL 1.88-7.09 H (test code = 4390393793) IMM GRAN x10^3 (test 0.15 10*3/uL 0.00-0.06 H code = 2668610458) LYMPH x10^3 (test code 0.59 10*3/uL 1.32-3.29 L = 731-0) MONO x10^3 (test code 0.59 10*3/uL 0.33-0.92 = 742-7) EOS x10^3 (test code = 0.04 10*3/uL 0.03-0.39 711-2) BASO x10^3 (test code 0.06 10*3/uL 0.01-0.07 = 704-7) Lab Interpretation Abnormal (test code = 66590-8) [facility]GLU[facility]CA2+[facility]22-01-02 10:20:11 Test Item Value Reference Range Interpretation Comments PH (test code = 2) 7.35-7.45 LL PCO2 (test code = See_Comment H [Automate d message] 1401274224) The system [employer] generated this result transmit alden reference range : 35 - 45 mmHg. The reference range was not used to interpret this result as normal/abnormal . PO2 (test code = See_Comment H [Automated message] 5771435840) The system [employer] generated this result transmit alden reference range : 80 - 100 mmHg. The reference range was not used to interpret this result as normal/abnormal . HCO3 (test code = See_Comment [Automate d message] 6435728267) The system [employer] generated this result transmit alden reference range : 22 - 26 mEq/L. The reference range was not used to interpret this result as normal/abnormal . BE (test code = See_Comment L [Automated message] 9650300396) The system Wis[employer]dm generated this result transmit alden reference range : -3.0 - 3.0 mEq/ L. The reference r josselyn was not used to interpret this result as normal/abnormal . THB (test code = 10.9 g/dL 12.0-16.0 L 8898584116) %O2HB (test code = 97.4 % 94.0-99.0 8750859968) %COHB ART (test code = 0.3 % 0.0-1.5 7792559884) %METHB ART (test code = 0.1 % 0.4-1.5 L 9708445523) VOL%O2 ART (test code = 15.1 % 15.0-23.0 3650226552) NA (test code = 136 mmol/L 135-145 7131719317) K+ (test code = 5.5 mmol/L 3.5-5.0 H 6117126771) AC CA IONZ (test code = 4.70 mg/dL 4.50-5.30 2381814187) GLUCOSE (test code = 348 mg/dL 70-110 H 3896127456) Lab Interpretation Abnormal (test code = 59410-6) [facility] [id number] 03:01:55 Test Item Value Reference Interpretation Comments Range TROPONIN I (test 0.001 ng/mL See_Comment [Automated code = 7908285839) message] The system which generated this result [...] biotin. Lab Interpretation Normal (test code = 24071-5) [facility] [id number] 02:58:58 Test Item Value Reference Range Interpretation Comments NT-proBNP (test code 183 pg/mL See_Comment H [Autom ated = 3012829408) message] The system which generated this result transmitted reference range : <=125. The reference range was not used to interpret this result as normal/abnormal . JENNIFFER (test code = JENNIFFER) Biotin has been reported to cause a negative bias, interpret results relative to patient's use of biotin. Lab Interpretation Abnormal (test code = 88727-6) [facility]. METABOLIC PANEL (75013)2022-01-02 02:50:56 Test Item Value Reference Range Interpretation Comments NA (test code = 137 mmol/L 135-145 6400847506) K (test code = 4.6 mmol/L 3.5-5.0 5469425926) CL (test code = 103 mmol/L 98-108 1321667981) CO2 TOTAL (test code = 26 mmol/L 23-31 8853458763) AGAP (test code = 2-16 6553457795) BUN (test code = 20 mg/dL 7-23 6068602283) GLUCOSE (test code = 310 mg/dL 70-110 H 1298561797) CREATININE (test code = 1.14 mg/dL 0.50-1.04 H 6649023332) TOTAL BILI (test code = 0.3 mg/dL 0.1-1.9 9678626993) CALCIUM (test code = 8.1 mg/dL 8.6-10.6 L 3742332862) T PROTEIN (test code = 6.6 g/dL 6.3-8.2 2655961370) ALBUMIN (test code = 3.8 g/dL 3.5-5.0 1807613004) ALK PHOS (test code = 143 U/L 34-122 H 4878038535) ALTv (test code = 46 U/L 5-35 H 1742-6) AST(SGOT) (test code = 81 U/L 13-40 H 9642249692) eGFR (test code = mL/min/1.73m2 0999426928) JENNIFFER (test code = JENNIFFER) Association of [...] tests). Lab Interpretation Abnormal (test code = 91548-0) [facility] WITH [id number] 02:39:55 Test Item Value Reference Range Interpretation [...] RDW-SD (test code = 49.2 fL 39.0-49.9 89335-2) RDW-CV (test code = 14.8 % 12.0-15.5 788-0) PLT (test code = See_Comment [Automated 777-3) message] The system which generated this result transmit alden reference range : 166 - 358 10*3/ ?L. The reference range was not u sed to interpret th is result as normal/abnormal . MPV (test code = 10.0 fL 9.5-12.9 54071-7) NRBC/100 WBC (test See_Comment [Automat ed code = 6944587199) message] The system which generated this result transmit alden reference range : 0.0 - 10.0 /100 WBCs. The reference range was not used to interpret this result as normal/abnormal . NRBC x10^3 (test code <0.01 See_Comment [Auto mated = 9973294893) message] The system which generated this result transmit alden reference range : 10*3/?L. The reference range was not used to interpret this result as normal/abnormal . GRAN MAT (NEUT) % 85.4 % (test code = 770-8) IMM GRAN % (test code 0.60 % = 2776063149) LYMPH % (test code = 6.4 % 736-9) MONO % (test code = 5.5 % 5905-5) EOS % (test code = 1.6 % 713-8) BASO % (test code = 0.5 % 706-2) GRAN MAT x10^3(ANC) 10.20 10*3/uL 1.88-7.09 H (test code = 4595171766) IMM GRAN x10^3 (test 0.07 10*3/uL 0.00-0.06 H code = 3304134741) LYMPH x10^3 (test code 0.76 10*3/uL 1.32-3.29 L = 731-0) MONO x10^3 (test code 0.66 10*3/uL 0.33-0.92 = 742-7) EOS x10^3 (test code = 0.19 10*3/uL 0.03-0.39 711-2) BASO x10^3 (test code 0.06 10*3/uL 0.01-0.07 = 704-7) Lab Interpretation Abnormal (test code = 43023-9) [facility] [id number] 04:57:10 Test Item Value Reference Interpretation Comments Range TROPONIN I (test 0.001 ng/mL See_Comment [Automated code = 2423455056) message] The system which generated this result [...] biotin. Lab Interpretation Normal (test code = 98596-4) [facility] [id number] 04:53:49 Test Item Value Reference Range Interpretation Comments NT-proBNP (test code 79 pg/mL See_Comment [Autom ated = 4710812454) message] The system which generated this result transmitted reference range : <=125. The reference range was not used to interpret this result as normal/abnormal . JENNIFFER (test code = JENNIFFER) Biotin has been reported to cause a negative bias, interpret results relative to patient's use of biotin. Lab Interpretation Normal (test code = 07556-1) [facility] (04889)2021-12-09 04:46:26 Test Item Value Reference Range Interpretation Comments NA (test code = 138 mmol/L 135-145 0929247386) K (test code = 4.4 mmol/L 3.5-5.0 5859404914) CL (test code = 95 mmol/L 98-108 L 1136705778) CO2 TOTAL (test code = 35 mmol/L 23-31 H 4439445436) AGAP (test code = 2-16 8908815550) BUN (test code = 16 mg/dL 7-23 1428115142) GLUCOSE (test code = 276 mg/dL 70-110 H 2986401840) CREATININE (test code = 0.89 mg/dL 0.50-1.04 0251775651) TOTAL BILI (test code = 0.5 mg/dL 0.1-1.3 4804615720) CALCIUM (test code = 9.1 mg/dL 8.6-10.6 2408502713) T PROTEIN (test code = 7.0 g/dL 6.3-8.2 4157428694) ALBUMIN (test code = 4.2 g/dL 3.5-5.0 1655703346) ALK PHOS (test code = 141 U/L 34-122 H 8212595016) ALTv (test code = 65 U/L 5-35 H 1742-6) AST(SGOT) (test code = 81 U/L 13-40 H 5559075890) eGFR (test code = mL/min/1.73m2 9570075972) JENNIFFER (test code = JENNIFFER) Association of [...] tests). Lab Interpretation Abnormal (test code = 40209-7) [facility] Test Item Value Reference Range Interpretation Comments LIPASE (test code = 1554690238) 82 U/L 0-220 Lab Interpretation (test code = Normal 25465-6) [facility] [id number] 04:27:44 Test Item Value Reference Range Interpretation [...] RDW-SD (test code = 46.9 fL 39.0-49.9 74898-4) RDW-CV (test code = 14.2 % 12.0-15.5 788-0) PLT (test code = See_Comment [Automated 777-3) message] The sy stem which generated this result transmitted reference range : 166 - 358 10*3/ ?L. The reference r josselyn was not used to interpret this result as normal/abnormal . MPV (test code = 9.0 fL 9.5-12.9 L 26147-2) NRBC/100 WBC (test See_Comment [Automat ed code = 1122121671) message] The system which generated this result transmitted reference range : 0.0 - 10.0 /100 WBCs. The refer ence range was not u sed to interpret th is result as normal/abnormal . NRBC x10^3 (test code <0.01 See_Comment [Auto mated = 6078746212) message] The s ystem which generated this result transmitted reference range : 10*3/?L. The reference range was not used to interpret this result as normal/abnormal . GRAN MAT (NEUT) % 79.4 % (test code = 770-8) IMM GRAN % (test code 0.60 % = 4614242494) LYMPH % (test code = 10.9 % 736-9) MONO % (test code = 5.7 % 5905-5) EOS % (test code = 2.7 % 713-8) BASO % (test code = 0.7 % 706-2) GRAN MAT x10^3(ANC) 7.19 10*3/uL 1.88-7.09 H (test code = 5968556142) IMM GRAN x10^3 (test 0.05 10*3/uL 0.00-0.06 code = 4222416993) LYMPH x10^3 (test code 0.99 10*3/uL 1.32-3.29 L = 731-0) MONO x10^3 (test code 0.52 10*3/uL 0.33-0.92 = 742-7) EOS x10^3 (test code = 0.24 10*3/uL 0.03-0.39 711-2) BASO x10^3 (test code 0.06 10*3/uL 0.01-0.07 = 704-7) Lab Interpretation Abnormal (test code = 51861-1) [facility] GLUCOSE (AUTOMATED)2021-09-23 17:25:54 Test Item Value Reference Range Interpretation Comments POCT GLU (test code = 9167791941) 234 mg/dL 70-110 H Lab Interpretation (test code = Abnormal 62443-7) [facility] GLUCOSE (AUTOMATED)2021-09-23 13:58:43 Test Item Value Reference Range Interpretation Comments POCT GLU (test code = 5109293481) 202 mg/dL 70-110 H Lab Interpretation (test code = Abnormal 75243-5) [facility] METABOLIC PANEL (NA, K, CL, CO2, GLUCOSE, BUN, CREATININE, CA)2021-09-23 11:51:27 Test Item Value Reference Range Interpretation Comments NA (test code = 139 mmol/L 135-145 3380555268) K (test code = 3.9 mmol/L 3.5-5.0 6442768710) CL (test code = 93 mmol/L 98-108 L 1897589724) CO2 TOTAL (test code = 40 mmol/L 23-31 H 8301869791) AGAP (test code = 2-16 2427968128) BUN (test code = 26 mg/dL 7-23 H 1959579535) GLUCOSE (test code = 223 mg/dL 70-110 H 4448609616) CREATININE (test code = 0.96 mg/dL 0.50-1.04 8533424497) CALCIUM (test code = 9.2 mg/dL 8.6-10.6 2776957256) eGFR (test code = mL/min/1.73m2 4082150288) JENNIFFER (test code = JENNIFFER) Association of [...] tests). Lab Interpretation Abnormal (test code = 98944-9) [facility] WITHOUT [id number] 10:53:54 Test Item Value Reference Range Interpretation Comments WBC (test code = 6690-2) See_Comment H [A utomated message] The system [employer] generated this result transmit alden reference range : 4.30 - 11.10 10*3/?L. The reference range was not used to interpret this result as normal/abnormal . RBC (test code = 789-8) See_Comment L [Au tomated message] The system [employer] generated this result transmit alden reference range [...] 777-3) See_Comment [Au tomated message] The system [employer] generated this result transmit alden reference range : 166 - 358 10*3/?L. The reference range was not used to interpret this result as normal/abnormal . MPV (test code = 9.2 fL 9.5-12.9 L 86667-1) RDW-CV (test code = 13.5 % 12.0-15.5 788-0) RDW-SD (test code = 44.3 fL 39.0-49.9 45640-6) NRBC x10^3 (test code = <0.01 See_Comment [Au tomated message] 0171693502) The system [employer] generated this result transmit alden reference range : 10*3/?L. The reference range was not used to interpret this result as normal/abnormal . NRBC/100 WBC (test code See_Comment [Au tomated message] = 4420541728) The system [employer] generated this result transmit alden reference range : 0.0 - 10.0 /100 WBC s. The reference r josselyn was not used to interpret this result as normal/abnormal . IPF % (test code = 2578311488) Lab Interpretation (test Abnormal code = 12193-9) [facility] GLUCOSE (AUTOMATED)2021-09-23 10:17:17 Test Item Value Reference Range Interpretation Comments POCT GLU (test code = 9051617737) 217 mg/dL 70-110 H Lab Interpretation (test code = Abnormal 06501-6) [facility] GLUCOSE (AUTOMATED)2021-09-23 05:44:27 Test Item Value Reference Range Interpretation Comments POCT GLU (test code = 3259823825) 338 mg/dL 70-110 H Lab Interpretation (test code = Abnormal 30064-3) [facility] GLUCOSE (AUTOMATED)2021-09-23 02:18:55 Test Item Value Reference Range Interpretation Comments POCT GLU (test code = 5014802080) 365 mg/dL 70-110 H Lab Interpretation (test code = Abnormal 25015-9) [facility]:11:44 Test Item Value Reference Range Interpretation Comments LVOT stroke volume (test 68.50 cm3 code = 8161311567) EF(Teich) (test code = 68.30 % 1584651447) LVIDD (test code = 4.00 cm 0838291413) LVIDS (test code = 2.49 cm 4512779801) IVS (test code = 1.07 cm 0697146773) LVPWD (test code = 1.08 cm 5017064855) LVOT diameter (test code 1.92 cm = 2638258228) FS (test code = 38 % 3611775334) MV Peak E Marva (test code 83.4 cm/s = 0545683683) MV Peak A Marva (test code 136.1 cm/s = 1674544463) E/A ratio (test code = ratio 9494992266) E wave decelartion time 0.16 s (test code = 5092310661) MV E/e' septal (test 7.1 cm/s code = 7747881554) LA Volume Index (BP) 21.8 mL/m2 (test code = 9524295129) LA volume (BP) (test 43.7 mL code = 5525772157) LVOT peak marva (test code 137.5 cm/s = 7866124527) LVOT mn grad (test code mmHg = 3400394463) LA size (test code = 3.9 cm 5014133525) LAV(MOD-sp2) (test code 43.50 mL = 1032989322) LAV(MOD-sp4) (test code 42.50 mL = 3938880863) Tapse (test code = 1.88 cm 8437042245) AV LVOT peak gradient mmHg (test code = 4032608329) LVOT peak VTI (test code 23.5 cm = 9281665873) LV V1 mean (test code = 92.90 cm/s 1572050467) MV Prop V (test code = 46.60 cm/s 4895789931) Ao root annulus (test 3.1 cm code = 0064922145) Ao root diam (test code 3.10 cm = 1924847050) Aortic root (test code = 3.1 cm 2241619853) PW (test code = 1.08 cm 0.6-1.9 4065905594) EF - 2D (test code = 68.30 % 92579664) Interventricular Septum 1.07 cm Diastolic Thickness by 2D (test code = 3689923) Radiology Study observation (narrative) (test code = 01993-4) JENNIFFER (test code = JENNIFFER) ?Left?Ventricle: Normal [...] (104.3 kg) 2.12 sq meters 118/66 96 [facility] GLUCOSE (AUTOMATED)2021-09-22 22:23:31 Test Item Value Reference Range Interpretation Comments POCT GLU (test code = 6763692265) 389 mg/dL 70-110 H Lab Interpretation (test code = Abnormal 08286-8) [facility] [id number] 21:48:25 Test Item Value Reference Range Interpretation Comments SPUTUM CULTURE (test Specimen cellular code = 622-1) elements do not represent lower respiratory tract. Specimen rejected for routine bacterial culture. Suggest reorder and recollection. [facility] GLUCOSE (AUTOMATED)2021-09-22 20:03:02 Test Item Value Reference Range Interpretation Comments POCT GLU (test code = 2801552508) 365 mg/dL 70-110 H Lab Interpretation (test code = Abnormal 01153-4) [facility] GLUCOSE (AUTOMATED)2021-09-22 18:09:08 Test Item Value Reference Range Interpretation Comments POCT GLU (test code = 8353854914) 361 mg/dL 70-110 H Lab Interpretation (test code = Abnormal 57760-0) [facility] GLUCOSE (AUTOMATED)2021-09-22 13:24:25 Test Item Value Reference Range Interpretation Comments POCT GLU (test code = 8183526574) 394 mg/dL 70-110 H Lab Interpretation (test code = Abnormal 13153-1) [facility] LACTIC [id number] 13:21:48 Test Item Value Reference Range Interpretation Comments PH (test code = 2) 7.35-7.45 PCO2 (test code = See_Comment H [Automate d 9568879071) message] The sy stem which generated this result transmitted reference range : 35 - 45 mmHg. The reference range was not used to interpret this result as normal/abnormal . PO2 (test code = See_Comment L [Automated 5532061862) message] The sy stem which generated this result transmitted reference range : 80 - 100 mmHg. The reference range was not used to interpret this result as normal/abnormal . HCO3 (test code = See_Comment H [Automate d 0152478350) message] The sy stem which generated this result transmitted reference range : 22 - 26 mEq/L. The reference range was not used to interpret this result as normal/abnormal . BE (test code = See_Comment H [Automated 0327582557) message] The sy stem which generated this result transmitted reference range : -3.0 - 3.0 mEq/ L. The reference r josselyn was not used to interpret this result as normal/abnormal . THB (test code = 11.0 g/dL 12.0-16.0 L 4670479063) %O2HB (test code = 92.4 % 94.0-99.0 L 2159137012) %COHB ART (test code = 0.3 % 0.0-1.5 1584593727) %METHB ART (test code = 0.3 % 0.4-1.5 L 1773704386) VOL%O2 ART (test code = 14.3 % 15.0-23.0 L 1119187954) NA (test code = 138 mmol/L 135-145 4040289899) K+ (test code = 4.7 mmol/L 3.5-5.0 0604969502) AC CA IONZ (test code = 4.70 mg/dL 4.50-5.30 6681473645) GLUCOSE (test code = 401 mg/dL 70-110 H 9482310149) LACTIC ACID (test code 1.76 mmol/L 0.50-2.20 = 8898857676) Lab Interpretation Abnormal (test code = 97922-7) [facility] Metabolic Panel (NA, K, CL, CO2, Glucose, BUN, Creatinine, CA)2021-09-22 13:08:40 Test Item Value Reference Range Interpretation Comments NA (test code = 139 mmol/L 135-145 9158542833) K (test code = 4.9 mmol/L 3.5-5.0 9381633282) CL (test code = 93 mmol/L 98-108 L 2737464845) CO2 TOTAL (test code = 38 mmol/L 23-31 H 4274370678) AGAP (test code = 2-16 2159561637) BUN (test code = 19 mg/dL 7-23 2832809564) GLUCOSE (test code = 393 mg/dL 70-110 H 6217038067) CREATININE (test code = 0.89 mg/dL 0.50-1.04 9542690258) CALCIUM (test code = 8.9 mg/dL 8.6-10.6 0252509660) eGFR (test code = mL/min/1.73m2 1164687292) JENNIFFER (test code = JENNIFFER) Association of [...] tests). Lab Interpretation Abnormal (test code = 66527-1) [facility] [id number] 13:00:02 Test Item Value Reference Range Interpretation Comments MAGNESIUM (test code = 2211070861) 2.1 mg/dL 1.7-2.4 Lab Interpretation (test code = Normal 95045-8) [facility] [id number] 13:00:02 Test Item Value Reference Range Interpretation Comments PHOSPHORUS (test code = 5560104087) 3.3 mg/dL 2.5-5.0 Lab Interpretation (test code = Normal 52864-1) [facility] (ALB, T.PRO, BILI T, BU/BC, ALT, AST, ALK, PHOS)2021-09-22 13:00:02 Test Item Value Reference Range Interpretation Comments TOTAL BILI (test code = 0885997797) 0.7 mg/dL 0.1-1.1 BILI UNCON (test code = 1712373856) 0.1 mg/dL 0.1-1.1 BILI CONJ (test code = 5893503550) 0.0 mg/dL 0.0-0.3 T PROTEIN (test code = 0794105328) 8.1 g/dL 6.3-8.2 ALBUMIN (test code = 5870999467) 4.2 g/dL 3.5-5.0 ALK PHOS (test code = 6588859012) 145 U/L 34-122 H ALTv (test code = 1742-6) 34 U/L 5-35 AST(SGOT) (test code = 5653710497) 46 U/L 13-40 H Lab Interpretation (test code = Abnormal 06610-8) [facility]th[facility] / [id number] 12:42:02 Test Item Value Reference Range Interpretation [...] tions. Lab Interpretation (test Normal code = 00522-4) [facility] with [id number] 12:35:41 Test Item Value Reference Range Interpretation Comments WBC (test code = See_Comment [Automated 4390-2) message] The sy stem which generated this result transmitted reference range : 4.30 - 11.10 10*3/?L. The reference range was not used to interpret this result as normal/abnormal . RBC (test code = See_Comment L [Automated 339-8) message] The sy stem which generated this [...] RDW-SD (test code = 45.0 fL 39.0-49.9 72908-0) RDW-CV (test code = 13.7 % 12.0-15.5 788-0) PLT (test code = See_Comment [Automated 777-3) message] The sy stem which generated this result transmitted reference range : 166 - 358 10*3/ ?L. The reference r josselyn was not used to interpret this result as normal/abnormal . MPV (test code = 9.0 fL 9.5-12.9 L 79013-5) NRBC/100 WBC (test See_Comment [Automat ed code = 7990775256) message] The system which generated this result transmitted reference range : 0.0 - 10.0 /100 WBCs. The refer ence range was not u sed to interpret th is result as normal/abnormal . NRBC x10^3 (test code <0.01 See_Comment [Auto mated = 8682856926) message] The s ystem which generated this result transmitted reference range : 10*3/?L. The reference range was not used to interpret this result as normal/abnormal . GRAN MAT (NEUT) % 93.7 % (test code = 770-8) IMM GRAN % (test code 0.90 % = 5649119101) LYMPH % (test code = 3.2 % 736-9) MONO % (test code = 1.1 % 5905-5) EOS % (test code = 0.5 % 713-8) BASO % (test code = 0.6 % 706-2) GRAN MAT x10^3(ANC) 9.27 10*3/uL 1.88-7.09 H (test code = 1639991012) IMM GRAN x10^3 (test 0.09 10*3/uL 0.00-0.06 H code = 0844985935) LYMPH x10^3 (test code 0.32 10*3/uL 1.32-3.29 L = 731-0) MONO x10^3 (test code 0.11 10*3/uL 0.33-0.92 L = 742-7) EOS x10^3 (test code = 0.05 10*3/uL 0.03-0.39 711-2) BASO x10^3 (test code 0.06 10*3/uL 0.01-0.07 = 704-7) Lab Interpretation Abnormal (test code = 09808-6) [facility]A1C)2021-09-22 12:16:03 Test Item Value Reference Range Interpretation Comments HGB A1C (test code = 6.4 % 4.0-5.7 H 4548-4) JENNIFFER (test code = JENNIFFER) Reference RangesNormal: <5.7%Prediabetes: 5.7 - 6.4%Diabetes: > 6.5% Lab Interpretation (test Abnormal code = 17197-5) [facility]TR[facility] [id number] 07:25:36 Test Item Value Reference Interpretation Comments Range TROPONIN I (test <0.012 See_Comment [Automated code = 1105178224) message] The system which generated this result [...] biotin. Lab Interpretation Normal (test code = 32190-6) [facility]AL [id number] 07:21:56 Test Item Value Reference Range Interpretation Comments NT-proBNP (test code 127 pg/mL See_Comment H [Autom ated = 8540051427) message] The system which generated this result transmitted reference range : <=125. The reference range was not used to interpret this result as normal/abnormal . JENNIFFER (test code = JENNIFFER) Biotin has been reported to cause a negative bias, interpret results relative to patient's use of biotin. Lab Interpretation Abnormal (test code = 81624-4) [facility]. METABOLIC PANEL (48439)2021-09-22 07:01:13 Test Item Value Reference Range Interpretation Comments NA (test code = 137 mmol/L 135-145 6638075379) K (test code = 4.9 mmol/L 3.5-5.0 4470417984) CL (test code = 96 mmol/L 98-108 L 1574629866) CO2 TOTAL (test code = 36 mmol/L 23-31 H 0638610296) AGAP (test code = 2-16 5474682629) BUN (test code = 18 mg/dL 7-23 3578090082) GLUCOSE (test code = 298 mg/dL 70-110 H 7852646034) CREATININE (test code = 0.73 mg/dL 0.50-1.04 8417023780) TOTAL BILI (test code = 0.6 mg/dL 0.1-1.3 3708394827) CALCIUM (test code = 8.5 mg/dL 8.6-10.6 L 3424950747) T PROTEIN (test code = 7.1 g/dL 6.3-8.2 2588501531) ALBUMIN (test code = 4.0 g/dL 3.5-5.0 5557643838) ALK PHOS (test code = 132 U/L 34-122 H 7974852354) ALTv (test code = 31 U/L 5-35 1742-6) AST(SGOT) (test code = 51 U/L 13-40 H 4119293550) eGFR (test code = mL/min/1.73m2 2646397014) JENNIFFER (test code = JENNIFFER) Association of [...] tests). Lab Interpretation Abnormal (test code = 70819-3) [facility] THRMPLAS [id number] 06:54:12 Test Item Value Reference Range Interpretation Comments APTT Patient (test See_Comment [Automat ed code = 3173-2) message] The system which generated this result transmitted reference range : 23 - 38 Seconds . The reference range was not used to interpr et this result as normal/abnormal . JENNIFFER (test code = JENNIFFER) The [facility] patient population mean normal value for aPTT is 30 seconds. Lab Interpretation Normal (test code = 82276-7) [facility] HospitalPROTHROMBIN TIME / [id number] 06:52:12 Test Item Value Reference Range Interpretation [...] tions. Lab Interpretation (test Normal code = 22792-2) [facility] WITH [id number] 06:44:31 Test Item Value Reference Range Interpretation [...] RDW-SD (test code = 47.3 fL 39.0-49.9 78553-4) RDW-CV (test code = 13.8 % 12.0-15.5 788-0) PLT (test code = See_Comment [Automated 777-3) message] The sy stem which generated this result transmitted reference range : 166 - 358 10*3/ ?L. The reference r josselyn was not used to interpret this result as normal/abnormal . MPV (test code = 8.8 fL 9.5-12.9 L 71449-3) NRBC/100 WBC (test See_Comment [Automat ed code = 7688088371) message] The system which generated this result transmitted reference range : 0.0 - 10.0 /100 WBCs. The refer ence range was not u sed to interpret th is result as normal/abnormal . NRBC x10^3 (test code <0.01 See_Comment [Auto mated = 6080883262) message] The s ystem which generated this result transmitted reference range : 10*3/?L. The reference range was not used to interpret this result as normal/abnormal . GRAN MAT (NEUT) % 82.4 % (test code = 770-8) IMM GRAN % (test code 0.80 % = 0088651057) LYMPH % (test code = 8.0 % 736-9) MONO % (test code = 5.1 % 5905-5) EOS % (test code = 2.9 % 713-8) BASO % (test code = 0.8 % 706-2) GRAN MAT x10^3(ANC) 6.26 10*3/uL 1.88-7.09 (test code = 1288723482) IMM GRAN x10^3 (test 0.06 10*3/uL 0.00-0.06 code = 4530089595) LYMPH x10^3 (test code 0.61 10*3/uL 1.32-3.29 L = 731-0) MONO x10^3 (test code 0.39 10*3/uL 0.33-0.92 = 742-7) EOS x10^3 (test code = 0.22 10*3/uL 0.03-0.39 711-2) BASO x10^3 (test code 0.06 10*3/uL 0.01-0.07 = 704-7) Lab Interpretation Abnormal (test code = 33482-8) [facility]
[2023-01-01 01:10] LABS: Arterial Blood Carboxyhemoglob 1.1 % (0-1.5); Blood Gas Oxyhemoglobin 96.4 % (94-97)
[2023-01-01 01:45] LABS: Absolute Lymphocytes (CBC) 0.8 K/uL (0.7-4.9); Hematocrit 33.3 % (36.0-45.0); MCV 86.9 fL (80-100); MPV 7.8 fL (7.6-11.3); RBC Red Blood Cell Count 3.83 M/uL (3.86-4.86)
[2023-01-01 01:48] LABS: Protime INR 0.9
[2023-01-01 01:58] LABS: Albumin 3.5 g/dL (3.4-5.0); Bilirubin Total 0.2 mg/dL (0.2-1.0); Potassium 3.5 mEq/L (3.5-5.1)
--- NOTE | 2023-01-01 02:00 | EDPHYS ---
Physician Documentation [facility] Name: Janie Erickson Age: 62 yrs Sex: Female : 1960 Arrival Date: 01/01/2023 Time: 00:03 Bed 2 Private MD: ED Physician Danielle Armstrong HPI: 01/01 00:14 This 62 yrs old Female presents to ER via Wheelchair with complaints of difficulty sp3 breathing. 00:14 62-year-old female with a history of severe COPD, tracheostomy dependence, chronic sp3 hypercapnic respiratory failure, chronic diastolic CHF, diabetes presents with chief complaint difficulty breathing and tachycardia. Patient just had tracheostomy replaced at [facility] and was also admitted here last week for similar symptoms. Today, her family states that her O2 dependence went up to 6 L, it was hard for her to breathe and she was tachycardic into the 130s. Prompted them to bring her to the ED here for evaluation. Patient is currently on room and states that she has difficulty breathing via sign language and no other symptoms at this time. Review of systems, history and physical severely limited.. Historical: - Allergies: 01:24 codeine sulfate; kd3 01:24 Robaxin; kd3 01:24 Sulfa (Sulfonamide Antibiotics); kd3 01:24 Ultram; kd3 - PMHx: 01:24 Chronic obstructive lung disease; diabetes mellitus; Congestive heart failure; kd3 - PSHx: 01:24 trach; kd3 - Immunization history:: Adult Immunizations up to date. - Social history:: Smoking status: Patient reports the use of cigarette tobacco products, smokes one pack cigarettes per day. ROS: 00:15 Unable to obtain ROS due to patient is on ventilator. sp3 Exam: 00:15 Eyes: Pupils equal round and reactive to light, extra-ocular motions intact. Lids and sp3 lashes normal. Conjunctiva and sclera are non-icteric and not injected. Cornea within normal limits. Periorbital areas with no swelling, redness, or edema. 00:15 Constitutional: The patient appears alert. 00:15 Neck: Tracheostomy patent with no bleeding or discharge noted.. 00:15 Cardiovascular: Rate: tachycardic. 00:15 Respiratory: Coarse breath sounds bilaterally with equal chest rise and fall.. 00:15 Neuro: Limited neuro exam but grossly intact. Mental status is at baseline with patient able to understand her questions and answers in simple terms of yes and no and basic signing.. 00:21 ECG was reviewed by the Attending Physician. EKG demonstrates sinus tachycardia at 111 sp3 bpm with normal intervals, normal QRS, normal axis, nonspecific diffuse rate related ST/T changes without evidence of acute ischemia. Vital Signs: 00:13 Pulse 119; Resp 20; Temp 97.8; Pulse Ox 99% on trach 6LNC; pf1 00:57 BP 168 / 76; Pulse 110; Resp 19; Pulse Ox 100% on R/A; kd3 02:01 BP 115 / 78; Pulse 107; Resp 16; Pulse Ox 100% on R/A; kd3 03:00 BP 125 / 80; Pulse 100; Resp 12; Pulse Ox 100% on 50% FiO2 ETT vent; kd3 04:00 BP 112 / 68; Pulse 96; Resp 16; Pulse Ox 100% on 50% FiO2 ETT vent; kd3 05:00 BP 107 / 67; Pulse 93; Resp 20; Pulse Ox 100% on 50% FiO2 ETT vent; kd3 05:41 Pulse 88; Pulse Ox 100% on 50% FiO2 ETT vent; kd3 07:14 BP 148 / 82; Pulse 107; Resp 20; Temp 97.5; Pulse Ox 100% on 50% FiO2 ETT vent; cm10 Ventilator: 05:37 Fi02: 50%; Rate: 20min; T.V.: 590ml; Peep: 5cm; kd3 MDM: 00:10 Patient medically screened. sp3 00:17 Data reviewed: vital signs, nurses notes, old medical records, lab test result(s), EKG, sp3 radiologic studies. ED course: 62-year-old with severe COPD and tracheostomy well-known to the service in this hospital now presents with recurrent dyspnea. We will work patient up again with EKG, chest x-ray, laboratory values and sepsis work-up. Patient is tachycardic but pulse oxygenation is normal. ABG is pending. Blood pressure stable. Disposition likely admission versus transfer depending on findings. Differential diagnosis includes mucous plug, tracheostomy malfunction, pneumothorax, pleural effusion, pneumonia, sepsis, shock.. 00:28 ED course: Blood gas demonstrates 7.10/133/217. Will increase minute volume on a sp3 pressure control setting to help improve respiratory acidosis. Patient will be admitted to the ICU.. 01:58 ED course: Patient resting comfortably with oxygen saturations in the normal range. sp3 Repeat blood gas per inpatient team. No antibiotics indicated at this time. Will defer to inpatient team on repeating blood gas. CMP pending and will review once back.. 01/01 00:09 Order name: Blood Culture Adult (2) sp3 01/01 00:09 Order name: CBC with Diff; Complete Time: 03:44 sp3 01/01 00:09 Order name: CMP; Complete Time: 02:00 sp3 01/01 00:09 Order name: Lactate w/ 2H reflex if indic.; Complete Time: 02:00 sp3 01/01 00:09 Order name: Protime (+inr); Complete Time: 01:57 sp3 01/01 00:09 Order name: Ptt, Activated; Complete Time: 01:57 sp3 01/01 00:09 Order name: Urinalysis w/ reflexes sp3 01/01 00:09 Order name: ABG; Complete Time: 01:15 sp3 01/01 01:51 Order name: Manual Differential; Complete Time: 03:44 EDMS 01/01 04:19 Order name: Glucose, Ancillary Testing EDMS 01/01 06:36 Order name: ABG Arterial Blood Gas; Complete Time: 19:35 EDMS 01/01 09:10 Order name: Glucose, Ancillary Testing EDMS 01/01 10:15 Order name: Urinalysis w/ reflexes EDMS 01/01 17:17 Order name: Glucose, Ancillary Testing EDMS 01/01 00:09 Order name: Chest Single View XRAY sp3 01/01 02:25 Order name: Chest Wo Con CT la1 01/01 00:09 Order name: EKG; Complete Time: 00:09 sp3 01/01 00:09 Order name: Accucheck; Complete Time: 02:03 sp3 01/01 00:09 Order name: Cardiac monitoring; Complete Time: 00:58 sp3 01/01 00:09 Order name: EKG - Nurse/Tech; Complete Time: 00:22 sp3 01/01 00:09 Order name: IV Saline Lock - Large Bore; Complete Time: 01:22 sp3 01/01 00:09 Order name: Labs collected and sent; Complete Time: 01:22 sp3 01/01 00:09 Order name: O2 Per Protocol; Complete Time: sp3 01/01 00:09 Order name: O2 Sat Monitoring; Complete Time: sp3 01/01 00:09 Order name: Vital Signs; Complete Time: sp3 Administered Medications: 04:35 Drug: MethylPrednisoLONE IVP 125 mg Route: IVP; Site: left upper arm; pf1 05:25 Follow up: Response: No adverse reaction; Marked relief of symptoms pf1 04:50 Drug: DuoNeb Nebulize (2.5 mg - 0.5 mg) 3 ml Route: Nebulizer; pf1 05:25 Follow up: Response: No adverse reaction; Marked relief of symptoms pf1 05:10 Drug: Insulin Regular Human Sub-Q 5 units {Co-Signature: rahat (Teresa Hamm RN).} pf1 Route: Sub-Q; Site: left upper arm; 05:25 Follow up: Response: No adverse reaction; Marked relief of symptoms pf1 Disposition Summary: 01/01/23 01:59 Hospitalization Ordered Hospitalization Status: Inpatient Admission sp3 Provider: Jose Pickering sp3 Condition: Guarded sp3 Problem: an acute exacerbation sp3 Symptoms: have worsened sp3 Bed/Room Type: Standard sp3 Location: Intensive Care Unit(01/01/23 20:00) cg Room Assignment: 6-(01/01/23 20:00) cg Diagnosis - Respiratory acidosis, hypercarbia, respiratory failure, COPD sp3 Forms: - Medication Reconciliation Form sp3 - SBAR form sp3 Signatures: Dispatcher [employer] EDMS Gideon King FNP-C FNP-Cla1 Cornelia Edmond, RN RN cg Justin Oneill RN RN Danielle Solomon MD MD sp3 Doucette, Kyli RN RN lucía3 Carolyn Chaney RN RN pf1 Teresa Hamm RN3 Corrections: (The following items were deleted from the chart) 00:18 00:17 ED course: 62-year-old with severe COPD and tracheostomy well-known to the sp3 service in this hospital now presents with recurrent dyspnea. We will work patient up again with EKG, chest x-ray, laboratory values and sepsis work-up. Patient is tachycardic but pulse oxygenation is normal. ABG is pending. Blood pressure stable. Disposition likely admission versus transfer depending on findings.. sp3 04:12 01:59 Intensive Care Unit sp3 cg 04:12 01:59 sp3 cg 14:47 04:12 [facility] ER HOLD cg ja1 14:47 04:12 ERHOLD- cg ja1 14:55 14:47 Intensive Care Unit ja1 ja1 14:55 14:47 1- ja1 ja1 20:00 14:55 [facility] ER HOLD ja1 cg 20:00 14:55 ERHOLD- ja1 cg
--- NOTE | 2023-01-01 02:00 | ER ---
Nurse's Notes [facility] Name: Janie Erickson Age: 62 yrs Sex: Female : 1960 Arrival Date: 01/01/2023 Time: 00:03 Bed 2 Private MD: Diagnosis: Respiratory acidosis, hypercarbia, respiratory failure, COPD Presentation: 01/01 00:09 Chief complaint: Spouse and/or significant other states: difficulty breathing,onset pf1 [employer]. stated patient smoked cigarettes earlier today. stated changed out patient's trach earlier tonight and gave patient Albuterol x 3 tx at 1999. 00:09 Method Of Arrival: Wheelchair pf1 01:24 Coronavirus screen: Vaccine status: Patient reports receiving the 2nd dose of the covid kd3 vaccine. Ebola Screen: No symptoms or risks identified at this time. Initial Sepsis Screen: Does the patient meet any 2 criteria? No. Patient's initial sepsis screen is negative. Does the patient have a suspected source of infection? No. Patient's initial sepsis screen is negative. Risk Assessment: Do you want to hurt yourself or someone else? Patient reports no desire to harm self or others. Onset of symptoms was January 01, 2023. 01:24 Acuity: PAULINA 2 kd3 Triage Assessment: 01:24 General: Appears uncomfortable, Behavior is cooperative. General: Behavior is anxious. kd3 Pain: Unable to use pain scale. FLACC scale score is 0 out of 10. Historical: - Allergies: 01:24 codeine sulfate; kd3 01:24 Robaxin; kd3 01:24 Sulfa (Sulfonamide Antibiotics); kd3 01:24 Ultram; kd3 - PMHx: 01:24 Chronic obstructive lung disease; diabetes mellitus; Congestive heart failure; kd3 - PSHx: 01:24 trach; kd3 - Immunization history:: Adult Immunizations up to date. - Social history:: Smoking status: Patient reports the use of cigarette tobacco products, smokes one pack cigarettes per day. Screenin:23 [facility] ED Fall Risk Assessment (Adult) History of falling in the last 3 months, kd3 including since admission No falls in past 3 months (0 pts) Confusion or Disorientation No (0 pts) Intoxicated or Sedated No (0 pts) Impaired Gait Yes (1 pt) Mobility Assist Device Used No (0 pt) Altered Elimination No (0 pt) Score/Fall Risk Level 0 - 2 = Low Risk Maintained a safe environment. Abuse screen: Denies threats or abuse. Denies injuries from another. Nutritional screening: No deficits noted. Tuberculosis screening: No symptoms or risk factors identified. Assessment: 02:02 General: Appears ill, Behavior is anxious. Neuro: Level of Consciousness is awake, kd3 obeys commands, Oriented to person, place, time, situation. Cardiovascular: Patient's skin is warm and dry. 20:46 General: attempted to call report . as6 Vital Signs: 00:13 Pulse 119; Resp 20; Temp 97.8; Pulse Ox 99% on trach 6LNC; pf1 00:57 BP 168 / 76; Pulse 110; Resp 19; Pulse Ox 100% on R/A; kd3 02:01 BP 115 / 78; Pulse 107; Resp 16; Pulse Ox 100% on R/A; kd3 03:00 BP 125 / 80; Pulse 100; Resp 12; Pulse Ox 100% on 50% FiO2 ETT vent; kd3 04:00 BP 112 / 68; Pulse 96; Resp 16; Pulse Ox 100% on 50% FiO2 ETT vent; kd3 05:00 BP 107 / 67; Pulse 93; Resp 20; Pulse Ox 100% on 50% FiO2 ETT vent; kd3 05:41 Pulse 88; Pulse Ox 100% on 50% FiO2 ETT vent; kd3 07:14 BP 148 / 82; Pulse 107; Resp 20; Temp 97.5; Pulse Ox 100% on 50% FiO2 ETT vent; cm10 ED Course: 00:05 Patient arrived in ED. ja2 00:08 Danielle Armstrong MD is Attending Physician. sp3 00:29 Chest Single View XRAY In Process Unspecified. EDMS 01:21 Teresa Hamm, OLIVE is Primary Nurse. kd3 01:22 Blood Culture Adult (2) Sent. kd3 01:22 CBC with Diff Sent. kd3 01:22 CMP Sent. kd3 01:22 Lactate w/ 2H reflex if indic. Sent. kd3 01:22 Protime (+inr) Sent. kd3 01:22 Ptt, Activated Sent. kd3 01:24 Triage completed. kd3 01:24 Arm band placed on right wrist. kd3 01:25 Patient has correct armband on for positive identification. kd3 01:59 Jose Pickering MD is Hospitalizing Provider. sp3 04:[address] In Process Unspecified. EDMS 05:40 No provider procedures requiring assistance completed. Patient admitted, IV remains in kd3 place. 07:06 Primary Nurse role handed off by Teresa Hamm RN ll1 07:06 Sergio Meeks RN is Primary Nurse. ll1 07:07 Primary Nurse role handed off by Sergio Meeks RN 10 07:07 Ngoc Holcomb, OLIVE is Primary Nurse. cm10 Administered Medications: 04:35 Drug: MethylPrednisoLONE IVP 125 mg Route: IVP; Site: left upper arm; pf1 05:25 Follow up: Response: No adverse reaction; Marked relief of symptoms pf1 04:50 Drug: DuoNeb Nebulize (2.5 mg - 0.5 mg) 3 ml Route: Nebulizer; pf1 05:25 Follow up: Response: No adverse reaction; Marked relief of symptoms pf1 05:10 Drug: Insulin Regular Human Sub-Q 5 units {Co-Signature: kd3 (Teresa Hamm RN).} pf1 Route: Sub-Q; Site: left upper arm; 05:25 Follow up: Response: No adverse reaction; Marked relief of symptoms pf1 Medication: 01:25 VIS not applicable for this client. kd3 Ventilator: 05:37 Fi02: 50%; Rate: 20min; T.V.: 590ml; Peep: 5cm; kd3 Outcome: 01:59 Decision to Hospitalize by Provider. sp3 05:40 Admitted to ER Hold. Please see [facility] for further documentation. kd3 05:40 Condition: stable 05:40 Discharge instructions given to patient, family, Instructed on the need for admit, Demonstrated understanding of instructions. 21:37 Patient left the ED. as6 Signatures: Dispatcher [employer] EDMS Sergio Meeks, OLIVE SCHAEFER ll1 Danielle Armstrong MD MD sp3 Felicia Da Silva Ashby, RN RN as6 Teresa Hamm RN RN kd3 Carolyn Chaney RN RN pf1 Ngoc Holcomb RN RN 10 Teresa Hamm RN 3
[2023-01-01 02:41] LABS: Blood Morphology Comment NOT SEEN (NOT SEEN); Platelet Estimate ADEQ
--- NOTE | 2023-01-01 03:53 | P.HP ---
Certification for Inpatient Patient admitted to: Inpatient With expected LOS: >2 Midnights Patient will require the following post-hospital care: None Practitioner: I am a practitioner with admitting privileges, knowledge of patient current condition, hospital course, and medical plan of care. Services: Services provided to patient in accordance with Admission requirements found in Title 42 Section 412.3 of the Code of Federal Regulations <Gideon King - Last Filed: 01/01/23 03:49> Patient History Date of Service: 01/01/23 Reason for admission: Respiratory failure History of Present Illness: 62-year-old female with history of severe COPD, tracheostomy dependence, chronic hypercapnic respiratory failure, chronic diastolic congestive heart failure, insulin-dependent diabetes presented to the emergency department with chief complaint of dyspnea, lethargy/altered mental status. She has had multiple hospitalizations over the course of the last few months most recently she was discharged from here on 12/28/2022 after a 6-day stay for similar complaint. Prior to that admission she was evaluated by [facility] where her tracheostomy was exchanged. She still does smoke although significantly less than previous. Her spouse reports she was in her normal state of health since she was out of the hospital until this evening when she grew progressively short of breath throughout the evening and became altered. She was brought to the emergency department and immediately placed on hospital ventilator rather than her own home vent, labs were obtained including ABG. Her ABG showed a pH of 7.1 PCO2 of 133 PO2 217 HCO3 39.7 white blood cell count 12.6 hemoglobin 10.7 hematocrit 33.3 glucose 321. Chest x-ray was performed which revealed mild cardiomegaly, airspace disease and/or atelectasis in the right lung base, follow-up PA and lateral radiographs would be helpful in further evaluation. CT chest noncontrast ordered for further evaluation. She was discharged from the hospital with new prescription for prednisone 10 mg daily for 2 weeks, Diamox 250 mg daily. She will need to be admitted for acute on chronic hypercapnic respiratory failure/COPD exacerbation. - Past Medical/Surgical History Diabetic: Yes -: COPD -: Chronic diastolic congestive heart failure -: Insulin-dependent diabetes -: Home trach/vent 2/2 chronic hypercapnic respiratory failure -: Hypothyroidism -: Hyperlipidemia -: trach -: -: Hysterectomy -: Left knee surgery Psychosocial/ Personal History: Patient lives at home with family - Family History Father -: Cancer Brother -: Diabetes - Social History Smoking Status: Current every day smoker Alcohol use: No CD- Drugs: Yes Caffeine use: Yes Place of Residence: Home <Gideon King - Last Filed: 01/01/23 03:49> Date of Service: 01/01/23 <Jose Pickering - Last Filed: 01/01/23 21:41> Allergies codeine Allergy (Verified 09/27/22 23:31) Itching methocarbamol [From Robaxin] Allergy (Verified 10/20/22 06:11) Nausea/Vomiting Sulfa (Sulfonamide Antibiotics) Allergy (Verified 09/27/22 23:31) Itching/Hives/Rash tramadol [From Ultram] Adverse Reaction (Verified 09/27/22 23:31) Nausea/Vomiting Home Medications: Cyclobenzaprine [Flexeril*] 10 mg PO TID 05/01/21 Hydrocodone Bit/Acetaminophen [Hydrocodon-Acetaminophn 10-325] 1 tab PO Q6H PRN 05/01/21 Ipratropium/Albuterol Sulfate [Iprat-Albut 0.5-3(2.5) mg/3 ml] 3 ml NEB QID 05/01/21 Levothyroxine [Synthroid*] 0.05 mg PO DAILY 05/01/21 Metformin HCl 500 mg PO DAILY 05/01/21 PARoxetine HCL [Paroxetine HCl] 40 mg PO DAILY 05/01/21 Pregabalin 300 mg PO BID 05/01/21 Quetiapine [Seroquel*] 50 mg PO BEDTIME 05/01/21 Spironolactone 25 mg PO DAILY 05/01/21 Montelukast Sodium 10 mg PO DAILY 10/20/22 Rosuvastatin [Crestor*] 10 mg PO BEDTIME 10/20/22 Insulin Detemir [Levemir] 60 units SQ DAILY 12/24/22 Ondansetron [Ondansetron Odt] 8 mg PO Q8H PRN 12/24/22 Albuterol Neb [Proventil 0.083% Neb Soln] 2.5 mg NEB [id number] PRN #120 amp 12/28/22 Ipratropium Neb [Atrovent*] 0.5 mg NEB [id number] #120 amp 12/28/22 Roflumilast [Daliresp*] 500 mcg PO DAILY 12/28/22 acetaZOLAMIDE [Diamox*] 250 mg PO DAILY #30 tab 12/28/22 predniSONE [Deltasone*] 10 mg PO DAILY #14 tab 12/28/22 Review of Systems 10-point ROS is otherwise unremarkable Respiratory: Cough, Shortness of Breath <Gideon King - Last Filed: 01/01/23 03:49> Physical Examination - Vital Signs Pulse: 104 Pulse Ox (%): 100 - Physical Exam General: Alert, In no apparent distress, Oriented x3, Obese HEENT: Atraumatic, PERRLA, Mucous membr. moist/pink, EOMI, Sclerae nonicteric Neck: Supple, 2+ carotid pulse no bruit, No LAD, Without JVD or thyroid abnormality Respiratory: Expiratory wheezes, Other (Tracheostomy in place) Cardiovascular: No edema, Regular rate/rhythm, Normal S1 S2 Capillary refill: <2 Seconds Gastrointestinal: Normal bowel sounds, No tenderness Musculoskeletal: No tenderness Integumentary: No rashes Neurological: Normal speech, Normal strength at 5/5 x4 extr, Normal tone, Normal affect - Studies Laboratory Data (last 24 hrs) 01/01/23 00:15: PT 9.9, INR 0.90, APTT 32.1 01/01/23 00:15: Sodium 141, Potassium 3.5, BUN 20 H, Creatinine 0.92, Glucose 321 H, Total Bilirubin 0.2, AST 9 L, ALT 27, Alkaline Phosphatase 128 H 01/01/23 00:15: WBC 12.60 H, Hgb 10.7 L, Hct 33.3 L, Plt Count 315 <Gideon King - Last Filed: 01/01/23 03:49> - Studies Laboratory Data (last 24 hrs) 01/01/23 00:15: PT 9.9, INR 0.90, APTT 32.1 01/01/23 00:15: Sodium 141, Potassium 3.5, BUN 20 H, Creatinine 0.92, Glucose 321 H, Total Bilirubin 0.2, AST 9 L, ALT 27, Alkaline Phosphatase 128 H 01/01/23 00:15: WBC 12.60 H, Hgb 10.7 L, Hct 33.3 L, Plt Count 315 <Jose Pickering - Last Filed: 01/01/23 21:41> Assessment and Plan - Plan Assessment: Acute on chronic hypercapnic respiratory failure COPD with exacerbation-trach dependent Diabetes mellitus type 2insulin-dependent with hyperglycemia Chronic diastolic congestive heart failure Hyperlipidemia Hypothyroidism Plan: Acute on chronic hypercapnic respiratory failure COPD with exacerbation-trach dependent Continue use of hospital ventilator for now, during recent hospitalization patient's home ventilator was exchanged with similar model but new device as it was not working well for her. She also recently had her trach exchanged at [facility]. Continue use of hospital vent for now, pulmonology consult, continue Diamox, steroids, Daliresp. Counseled extensively on need for cessation of smoking both tobacco/marijuana. Diabetes mellitus type 2insulin-dependent with hyperglycemia Treated in ED, continue long-acting insulin, ACHS Accu-Chek, sliding scale insulin. Chronic diastolic congestive heart failure Does not appear overloaded, continue Diamox, other home medications. Hyperlipidemia Hypothyroidism Continue home medications. DVT PPX: Lovenox Code status: Full Discharge Plan: Home Plan to discharge in: Greater than 2 days - Advance Directives Does patient have a Living Will: No Does patient have a Durable POA for Healthcare: No - Code Status/Comfort Care Code Status Assessed: Yes (Full code) Critical Care: No Time Spent Managing Pts Care (In Minutes): 55 <Gideon King - Last Filed: 01/01/23 03:49> - Plan Patient seen on rounds this morning. Symptoms improed on hospital vent pCO2 improved Discussed with Order Puller, recommended ENT consult to re-eval trach unclear etiology possible COPD exacerbation vs AECOPD + URI vs missed medications leading to AECOPD, vs trach issue / obstruction CT with mild b/l opacities - likely atectasis, can't r/o bibasilar pneumonia seen in ED, on vent via trach, eating comfortably continue plan as noted above Patient follows with Dr. Baker in office, was seen last week when hospitalized. Consulted Dr. Baker <Jose Pickering - Last Filed: 01/01/23 21:41>
[2023-01-01] MEDS ORDERED: METHYLPREDNISOLONE 125 MG INJ ONE (04:13)
[2023-01-01] MEDS ORDERED: ALBUTEROL 2.5 MG/3 ML NEB SOL ONE ×3 (04:14→19:44)
[2023-01-01] MEDS ORDERED: INSULIN -REGULAR HUMAN 50 UNIT/0.5 ML ML ONE ×2 (04:14→05:18)
[2023-01-01] MEDS ORDERED: IPRATROPIUM BROM 0.5MG/2.5ML ONE ×3 (04:15→19:44)
[2023-01-01] MEDS ORDERED: IPRATROPIUM BROM 0.5MG/2.5ML NEB PRN (05:52)
[2023-01-01] MEDS ORDERED: ALBUTEROL 2.5 MG/3 ML NEB SOL NEB PRN (05:52)
[2023-01-01 06:35] LABS: Arterial Blood Carboxyhemoglob 1.1 % (0-1.5); Blood Gas Oxyhemoglobin 96.3 % (94-97); Blood O2 Saturation 98.8 % (92-98.5)
[2023-01-01] MEDS ORDERED: acetaZOLAMIDE 250 MG TAB ONE (08:54)
[2023-01-01] MEDS ORDERED: ENOXAPARIN 40 MG/0.4 ML SQ ONE (08:54)
[2023-01-01] MEDS ORDERED: predniSONE 20 MG TAB ONE (08:54)
[2023-01-01] MEDS ORDERED: SPIRONOLACTONE 25 MG TABLET ONE (08:56)
[2023-01-01] MEDS ORDERED: predniSONE 20 MG TAB PO SCH (09:00)
[2023-01-01] MEDS: ROFLUMILAST 500 MCG TABLET PO SCH (09:00)
[2023-01-01] MEDS: acetaZOLAMIDE 250 MG TAB PO SCH (09:00)
[2023-01-01] MEDS: SPIRONOLACTONE 25 MG TABLET PO SCH (09:00)
[2023-01-01] MEDS: ENOXAPARIN 40 MG/0.4 ML SQ SCH (09:00)
[2023-01-01] MEDS: ARFORMOTEROL TARTRATE 15 MCG/2 ML VIAL.NEB NEB SCH ×2 (09:49→19:40)
[2023-01-01 10:14] LABS: Calcium Oxalate Crystals- Ur Many /HPF (None Seen); Specific Gravity 1.026 (1.005-1.030); Urine Bacteria >50 /HPF (<20); Urine Bilirubin NEGATIVE (Negative); Urine Blood Trace (Negative); Urine Clarity Extremely Turbid (Clear); Urine Color Yellow (Yellow); Urine Glucose 1+ (Negative); Urine Mucus Slight /HPF (None Seen); Urine Protein 1+ (Negative); Urine RBC <5 /HPF (None Seen); Urine Urobilinogen Normal (Normal); Urine pH 5.5 (5.0-7.0)
[2023-01-01] MEDS ORDERED: INSULIN GLARGINE 100 UNIT/ML SQ ONE (11:52)
[2023-01-01] MEDS: INSULIN GLARGINE 100 UNIT/ML SQ SCH (12:15)
--- NOTE | 2023-01-01 13:08 | P.CNS ---
Date of Consult: 01/02/23 Chief Complaint: Respiratory failure History of Present Illness: Patient is 62 years of age recurrent hospital admissions for respiratory failure came in again was found unresponsive hypercapnic at time of my evaluation on in the ER she was alert oriented responsive the hospital ventilator no new complaints patient did not tolerate her home ventilator but she is tolerating the ventilator in the hospital Allergies codeine Allergy (Verified 09/27/22 23:31) Itching methocarbamol [From Robaxin] Allergy (Verified 10/20/22 06:11) Nausea/Vomiting Sulfa (Sulfonamide Antibiotics) Allergy (Verified 09/27/22 23:31) Itching/Hives/Rash tramadol [From Ultram] Adverse Reaction (Verified 09/27/22 23:31) Nausea/Vomiting Home Medications: Cyclobenzaprine [Flexeril*] 10 mg PO TID 05/01/21 Hydrocodone Bit/Acetaminophen [Hydrocodon-Acetaminophn 10-325] 1 tab PO Q6H PRN 05/01/21 Ipratropium/Albuterol Sulfate [Iprat-Albut 0.5-3(2.5) mg/3 ml] 3 ml NEB QID 05/01/21 Levothyroxine [Synthroid*] 0.05 mg PO DAILY 05/01/21 Metformin HCl 500 mg PO DAILY 05/01/21 PARoxetine HCL [Paroxetine HCl] 40 mg PO DAILY 05/01/21 Pregabalin 300 mg PO BID 05/01/21 Quetiapine [Seroquel*] 50 mg PO BEDTIME 05/01/21 Spironolactone 25 mg PO DAILY 05/01/21 Montelukast Sodium 10 mg PO DAILY 10/20/22 Rosuvastatin [Crestor*] 10 mg PO BEDTIME 10/20/22 Insulin Detemir [Levemir] 60 units SQ DAILY 12/24/22 Ondansetron [Ondansetron Odt] 8 mg PO Q8H PRN 12/24/22 Albuterol Neb [Proventil 0.083% Neb Soln] 2.5 mg NEB [id number] PRN #120 amp 12/28/22 Ipratropium Neb [Atrovent*] 0.5 mg NEB [id number] #120 amp 12/28/22 Roflumilast [Daliresp*] 500 mcg PO DAILY 12/28/22 acetaZOLAMIDE [Diamox*] 250 mg PO DAILY #30 tab 12/28/22 predniSONE [Deltasone*] 10 mg PO DAILY #14 tab 12/28/22 - Past Medical/Surgical History Diabetic: Yes -: COPD -: Chronic diastolic congestive heart failure -: Insulin-dependent diabetes -: Home trach/vent 2/2 chronic hypercapnic respiratory failure -: Hypothyroidism -: Hyperlipidemia -: trach -: -: Hysterectomy -: Left knee surgery Psychosocial/ Personal History: Patient lives at home with family - Family History Father Medical History: Cancer Brother Medical History: Diabetes - Social History Smoking Status: Current every day smoker Alcohol use: No CD- Drugs: Yes Caffeine use: Yes Place of Residence: Home Review of Systems is unable to be obtained Physical Examination Temp Pulse Resp BP Pulse Ox 97.5 F 110 H 18 146/87 H 98 01/01/23 12:00 01/01/23 12:30 01/01/23 12:00 01/01/23 12:00 01/01/23 12:30 General: Alert, Oriented x3 Neck: Supple Respiratory: Clear to auscultation bilaterally, Diminished Laboratory Data (last 24 hrs) 01/01/23 00:15: PT 9.9, INR 0.90, APTT 32.1 01/01/23 00:15: Sodium 141, Potassium 3.5, BUN 20 H, Creatinine 0.92, Glucose 321 H, Total Bilirubin 0.2, AST 9 L, ALT 27, Alkaline Phosphatase 128 H 01/01/23 00:15: WBC 12.60 H, Hgb 10.7 L, Hct 33.3 L, Plt Count 315 - Problems (1) Acute and chronic respiratory failure Current Visit: No Status: Acute Plan: Patient has recurrent admissions with acute on chronic respiratory failure Home ventilator settings are now identical to the settings here in the hospital he was initially on pressure control now changed to volume control tidal volume also increased PEEP the same at 5 expiratory flow rate 0.8 seconds urinalysis shows 4+ gram-negative rods continue with bronchodilators present medications patient is on levofloxacin no evidence of sepsis hemodynamically stable await cultures she can tolerate the home vent for 24 hours possible discharge tomorrow Qualifiers: Respiratory failure complication: hypercapnia Qualified Code(s): J96.22 - Acute and chronic respiratory failure with hypercapnia
[2023-01-01] MEDS ORDERED: ONDANSETRON 4 MG/2 ML VIAL ONE ×2 (13:34→19:37)
[2023-01-01] MEDS: ONDANSETRON 4 MG/2 ML VIAL IV PRN ×2 (13:34→19:37)
[2023-01-01] MEDS: IPRATROPIUM BROM 0.5MG/2.5ML NEB SCH ×2 (14:19→19:40)
[2023-01-01] MEDS: ALBUTEROL 2.5 MG/3 ML NEB SOL NEB SCH ×2 (14:19→19:40)
[2023-01-01] MEDS: HYDROCODONE/APAP 5/325 MG TAB PO PRN ×2 (14:35→21:53)
--- NOTE | 2023-01-01 14:46 | EKG ---
Test Date: 2023-01-01 Test Time: 00:17:16 Salon Stylist: BRANDON MEASUREMENT RESULTS: Intervals: Rate: 111 GA: 128 QRSD: 78 QT: 316 QTc: 429 [place]: P: 79 GA: 128 QRS: 65 T: 87 INTERPRETIVE STATEMENTS: Sinus tachycardia Otherwise normal ECG Compared to ECG 12/22/2022 06:09:02 No significant changes Electronically Signed On 01-01-23 14:44:21 CDT by Minh James
[2023-01-01] MEDS: predniSONE 10 MG TAB PO SCH (19:36)
[2023-01-01] MEDS ORDERED: predniSONE 10 MG TAB ONE (19:37)
[2023-01-01] MEDS ORDERED: ARFORMOTEROL TARTRATE 15 MCG/2 ML VIAL.NEB ONE (19:45)
[2023-01-01] MEDS: QUETIAPINE 25 MG TAB PO SCH (21:53)
[2023-01-01] MEDS: PREGABALIN 150 MG CAP PO SCH (21:53)
[2023-01-01] MEDS ORDERED: D50W 25 GM/50 ML SYRINGE IV PRN (22:17)
[2023-01-01] MEDS ORDERED: GLUCAGON 1 MG/VIAL IM PRN (22:17)
[2023-01-01] MEDS ORDERED: D10W 125 ML IV PRN (22:20)
[2023-01-01] MEDS: INSULIN -REGULAR HUMAN 50 UNIT/0.5 ML ML SQ SCH (22:24)
[2023-01-01] MEDS: PROMETHAZINE INJ 25 MG/ML AMP IV PRN (22:25)
[2023-01-02] MEDS: ALBUTEROL 2.5 MG/3 ML NEB SOL NEB SCH ×4 (01:15→19:30)
[2023-01-02] MEDS: IPRATROPIUM BROM 0.5MG/2.5ML NEB SCH ×4 (01:15→19:30)
[2023-01-02 05:46] LABS: Absolute Lymphocytes (CBC) 0.9 K/uL (0.7-4.9); Hematocrit 26.9 % (36.0-45.0); Lymphocytes % 9.2 % (15.3-44.8); MCV 84.7 fL (80-100); MPV 7.8 fL (7.6-11.3); RBC Red Blood Cell Count 3.17 M/uL (3.86-4.86)
[2023-01-02] MEDS: LEVOTHYROXINE SOD 0.05 MG TABLET PO SCH (05:48)
[2023-01-02] MEDS: HYDROCODONE/APAP 5/325 MG TAB PO PRN ×3 (05:49→18:40)
[2023-01-02 05:58] LABS: Magnesium 2.1 mg/dL (1.6-2.4); Potassium 3.3 mEq/L (3.5-5.1)
[2023-01-02] MEDS: Levofloxacin 750mg IV 750 MG/150 ML BAG IV SCH (06:44)
--- NOTE | 2023-01-02 06:58 | P.PN ---
Date of Service: 01/02/23 Subjective: feeling better today had some trouble on home vent in the ER, improved with hospital vent nausea no trouble urinating, no diarrhea some SOB on exertion ROS: 10 point ROS as noted above, otherwise negative Physical Exam: GEN: Alert, oriented, NAD HEENT: Normal conjunctiva, sclera anicteric CV: Regular rate and rhythm, no edema Pulm: mild labored respirations on vent/Trach, mild b/l wheeze ABD: Soft, nontender, nondistended Neuro: normal affect, responds appropriately vitals reviewed Problem List: Acute on chronic hypercapnic respiratory failure COPD with exacerbation-trach dependent UTI suspected IDDM2 with hyperglycemia Chronic diastolic congestive heart failure Hyperlipidemia Hypothyroidism Nicotine/substance abuse Acute on chronic hypercapnic respiratory failure COPD with exacerbation-trach dependent Continue use of hospital ventilator for now, during recent hospitalization patient's home ventilator was exchanged with similar model but new device as it was not working well for her. recently had her trach exchanged at [facility]. CXR, CT chest (01/01) pending pulmonology consulted recommended ENT consult to herbert Baker - recommends continue current trach with cuff in hospital. When ready for discharge, deflate cuff until she gets home, then reinflate when hooked back up to home vent f/u in 2-4 weeks outpatient and can possibly be changed then continue Diamox, steroids, Daliresp. UTI suspected UA 01/01: +Leukocyte esterase, 50+ WBC, 50+ bacteria, trace blood Urine culture: 4+GNR, 100,000+ CFU/ML Blood cultures: NGTD Levaquin (01/02-) no leukocytosis, afebrile IDDM2 with hyperglycemia continue long-acting insulin, ACHS Accu-Chek, sliding scale insulin Chronic diastolic congestive heart failure Does not appear overloaded continue Diamox, other home medications. Nicotine/substance abuse Counseled extensively on need for cessation of smoking both tobacco/marijuana. Hyperlipidemia Hypothyroidism Continue home medications. VTE: Lovenox Code: Full Dispo: ~1-2 days pending improvement on home vent
[2023-01-02] MEDS: INSULIN -REGULAR HUMAN 50 UNIT/0.5 ML ML SQ SCH ×4 (07:30→20:37)
[2023-01-02] MEDS: ARFORMOTEROL TARTRATE 15 MCG/2 ML VIAL.NEB NEB SCH ×2 (08:10→19:30)
[2023-01-02] MEDS: acetaZOLAMIDE 250 MG TAB PO SCH (09:18)
[2023-01-02] MEDS: ROFLUMILAST 500 MCG TABLET PO SCH (09:18)
[2023-01-02] MEDS: predniSONE 10 MG TAB PO SCH ×2 (09:19→20:37)
[2023-01-02] MEDS: PARoxetine HCL 10 MG TAB PO SCH (09:19)
[2023-01-02] MEDS: INSULIN GLARGINE 100 UNIT/ML SQ SCH (09:20)
[2023-01-02] MEDS: ENOXAPARIN 40 MG/0.4 ML SQ SCH (09:20)
[2023-01-02] MEDS: SPIRONOLACTONE 25 MG TABLET PO SCH (09:21)
[2023-01-02] MEDS: ONDANSETRON 4 MG/2 ML VIAL IV PRN ×2 (09:27→14:22)
[2023-01-02 09:44] LABS: Arterial Blood Carboxyhemoglob 1.7 % (0-1.5); Blood Gas Oxyhemoglobin 90.6 % (94-97); Blood O2 Saturation 93.5 % (92-98.5)
[2023-01-02] MEDS: PROMETHAZINE INJ 25 MG/ML AMP IV PRN ×2 (11:34→18:16)
[2023-01-02] MEDS: CYCLOBENZAPRINE 10 MG TAB PO SCH ×3 (11:35→20:37)
[2023-01-02] MEDS ORDERED: KCL 20 MEQ/100 mL IVPB 20 MEQ/100 ML BAG IV ONE (12:00)
[2023-01-02 14:48] LABS: Arterial Blood Carboxyhemoglob 1.4 % (0-1.5); Blood Gas Oxyhemoglobin 94.2 % (94-97); Blood O2 Saturation 96.9 % (92-98.5)
[2023-01-02] MEDS: PREGABALIN 150 MG CAP PO SCH (18:54)
[2023-01-02] MEDS ORDERED: hydrOXYzine HCL 25 MG TAB PO ONE (19:08)
[2023-01-02 19:57] VITALS: O2SAT 100
[2023-01-02] MEDS: QUETIAPINE 25 MG TAB PO SCH (20:37)
[2023-01-03] MEDS: HYDROCODONE/APAP 5/325 MG TAB PO PRN ×3 (00:40→14:04)
[2023-01-03] MEDS: PROMETHAZINE INJ 25 MG/ML AMP IV PRN (00:41)
[2023-01-03] MEDS: IPRATROPIUM BROM 0.5MG/2.5ML NEB SCH ×3 (01:10→13:45)
[2023-01-03] MEDS: ALBUTEROL 2.5 MG/3 ML NEB SOL NEB SCH ×3 (01:10→13:45)
[2023-01-03 04:58] LABS: Absolute Lymphocytes (CBC) 0.5 K/uL (0.7-4.9); Hematocrit 30.6 % (36.0-45.0); Lymphocytes % 5.9 % (15.3-44.8); MCV 85.8 fL (80-100); MPV 7.6 fL (7.6-11.3); RBC Red Blood Cell Count 3.57 M/uL (3.86-4.86)
[2023-01-03 05:09] LABS: Potassium 3.4 mEq/L (3.5-5.1)
[2023-01-03 05:38] VITALS: BMI 36.4
[2023-01-03] MEDS: Levofloxacin 750mg IV 750 MG/150 ML BAG IV SCH (06:26)
[2023-01-03] MEDS: LEVOTHYROXINE SOD 0.05 MG TABLET PO SCH (06:26)
--- NOTE | 2023-01-03 06:49 | P.PN ---
Date of Service: 01/03/23 Subjective: ROS: 10 point ROS as noted above, otherwise negative Physical Exam: GEN: Alert, oriented, NAD HEENT: Normal conjunctiva, sclera anicteric CV: Regular rate and rhythm, no edema Pulm: mild labored respirations on vent/Trach, mild b/l wheeze ABD: Soft, nontender, nondistended Neuro: normal affect, responds appropriately vitals reviewed Problem List: Acute on chronic hypercapnic respiratory failure COPD with exacerbation-trach dependent UTI suspected IDDM2 with hyperglycemia Chronic diastolic congestive heart failure Hyperlipidemia Hypothyroidism Nicotine/substance abuse Acute on chronic hypercapnic respiratory failure COPD with exacerbation-trach dependent Continue use of hospital ventilator for now, during recent hospitalization patient's home ventilator was exchanged with similar model but new device as it was not working well for her. recently had her trach exchanged at [facility]. CXR, CT chest (01/01) pending pulmonology consulted recommended ENT consult to herbert Baker - recommends continue current trach with cuff in hospital. When ready for discharge, deflate cuff until she gets home, then reinflate when hooked back up to home vent f/u in 2-4 weeks outpatient and can possibly be changed then continue Diamox, steroids, Daliresp. UTI suspected UA 01/01: +Leukocyte esterase, 50+ WBC, 50+ bacteria, trace blood Urine culture: 4+GNR, 100,000+ CFU/ML Blood cultures: NGTD Levaquin (01/02-) no leukocytosis, afebrile IDDM2 with hyperglycemia continue long-acting insulin, ACHS Accu-Chek, sliding scale insulin Chronic diastolic congestive heart failure Does not appear overloaded continue Diamox, other home medications. Nicotine/substance abuse Counseled extensively on need for cessation of smoking both tobacco/marijuana. Hyperlipidemia Hypothyroidism Continue home medications. VTE: Lovenox Code: Full Dispo: ~1-2 days pending improvement on home vent
[2023-01-03] MEDS: ARFORMOTEROL TARTRATE 15 MCG/2 ML VIAL.NEB NEB SCH (07:30)
--- NOTE | 2023-01-03 08:59 | P.DS ---
Admission Date: 01/01/23 Discharge Date: 01/03/23 Disposition: ROUTINE DISCHARGE Discharge Condition: GOOD Reason for Admission: Respiratory failure Consultations: Pulmonology - Dr. Allen Brief History of Present Illness: 62-year-old female with history of severe COPD, tracheostomy dependence, chronic hypercapnic respiratory failure, chronic diastolic congestive heart failure, insulin-dependent diabetes presented to the emergency department with chief complaint of dyspnea, lethargy/altered mental status. She has had multiple hospitalizations over the course of the last few months most recently she was discharged from here on 12/28/2022 after a 6-day stay for similar complaint. Prior to that admission she was evaluated by [facility] where her tracheostomy was exchanged. She still does smoke although significantly less than previous. Her spouse reports she was in her normal state of health since she was out of the hospital until this evening when she grew progressively short of breath through out the evening and became altered. She was brought to the emergency department and immediately placed on hospital ventilator rather than her own home vent, labs were obtained including ABG. Her ABG showed a pH of 7.1 PCO2 of 133 PO2 217 HCO3 39.7 white blood cell count 12.6 hemoglobin 10.7 hematocrit 33.3 glucose 321. Chest x-ray was performed which revealed mild cardiomegaly, airspace disease and/or atelectasis in the right lung base, follow-up PA and lateral radiographs would be helpful in further evaluation. CT chest noncontrast ordered for further evaluation. She was discharged from the hospital with new prescription for prednisone 10 mg daily for 2 weeks, Diamox 250 mg daily. She will need to be admitted for acute on chronic hypercapnic respiratory failure/COPD exacerbation. Hospital Course: Problem List: Acute on chronic hypercapnic respiratory failure, secondary to smoking, anxiety, home vent/trach mild acute on chronic COPD exacerbation-trach dependent UTI, Klebsiella Pneumoniae IDDM2 with hyperglycemia Chronic diastolic congestive heart failure Hyperlipidemia Hypothyroidism Nicotine/substance abuse Patient presented with dyspnea, lethargy/altered mental status. She was found to have Acute on chronic hypercapnic respiratory failure secondary to home vent, anxiety, and mild COPD exacerbation. She was placed on hospital ventilator and had quick resolution. Her home vent settings were adjusted and she was observed for 24hrs on her home vent and did well. Pulmonology was consulted. She was treated with Diamox, steroids, Daliresp. On admission, her urinalysis revealed +Leukocyte esterase, 50+ WBC, 50+ bacteria. Urine cultures grew Klebsiella Pneumoniae and was treated with IV levaquin. She is to be discharged home and finish 7 day course of PO levaquin. New Prescription: Levaquin Trelegy refilled Deflate cuff prior to taking inhaler, reinflate cuff after Follow up: PCP 3-5 days Pulmonology within 2-4 weeks Physical Exam: GEN: Alert, oriented, NAD HEENT: Normal conjunctiva, sclera anicteric CV: Regular rate and rhythm, no edema Pulm: non labored respirations on vent/Trach, clear bilateraally ABD: Soft, nontender, nondistended Neuro: normal affect, responds appropriately Vital Signs/Physical Exam: Temp Pulse Resp BP Pulse Ox 98 F 80 20 97/65 100 01/03/23 00:00 01/03/23 06:00 01/03/23 06:00 01/03/23 06:00 01/03/23 06:00 Laboratory Data at Discharge: WBC 8.90 thou/uL (4.3-10.9) 01/03/23 04:40 Hgb 9.9 g/dL (12.0-15.0) L D 01/03/23 04:40 Hct 30.6 % (36.0-45.0) L 01/03/23 04:40 Plt Count 287 thou/uL (152-406) 01/03/23 04:40 PT 9.9 SECONDS (9.5-12.5) 01/01/23 00:15 INR 0.90 01/01/23 00:15 APTT 32.1 SECONDS (24.3-36.9) 01/01/23 00:15 Sodium 139 mEq/L (136-145) 01/03/23 04:40 Potassium 3.4 mEq/L (3.5-5.1) L D 01/03/23 04:40 BUN 23 mg/dL (7-18) H 01/03/23 04:40 Creatinine 0.92 mg/dL (0.55-1.02) 01/03/23 04:40 Glucose 228 mg/dL (74-106) H 01/03/23 04:40 Magnesium 2.1 mg/dL (1.6-2.4) 01/02/23 05:25 Total Bilirubin 0.2 mg/dL (0.2-1.0) 01/01/23 00:15 AST 9 U/L (15-37) L 01/01/23 00:15 ALT 27 U/L (13-56) 01/01/23 00:15 Alkaline Phosphatase 128 U/L (45-117) H 01/01/23 00:15 Home Medications: Cyclobenzaprine [Flexeril*] 10 mg PO TID 05/01/21 Hydrocodone Bit/Acetaminophen [Hydrocodon-Acetaminophn 10-325] 1 tab PO Q6H PRN 05/01/21 Ipratropium/Albuterol Sulfate [Iprat-Albut 0.5-3(2.5) mg/3 ml] 3 ml NEB QID 05/01/21 Levothyroxine [Synthroid*] 0.05 mg PO DAILY 05/01/21 Metformin HCl 500 mg PO DAILY 05/01/21 PARoxetine HCL [Paroxetine HCl] 40 mg PO DAILY 05/01/21 Pregabalin 300 mg PO BID 05/01/21 Quetiapine [Seroquel*] 50 mg PO BEDTIME 05/01/21 Spironolactone 25 mg PO DAILY 05/01/21 Montelukast Sodium 10 mg PO DAILY 10/20/22 Rosuvastatin [Crestor*] 10 mg PO BEDTIME 10/20/22 Insulin Detemir [Levemir] 60 units SQ DAILY 12/24/22 Ondansetron [Ondansetron Odt] 8 mg PO Q8H PRN 12/24/22 Albuterol Neb [Proventil 0.083% Neb Soln] 2.5 mg NEB [id number] PRN #120 amp 12/28/22 Ipratropium Neb [Atrovent*] 0.5 mg NEB [id number] #120 amp 12/28/22 Roflumilast [Daliresp*] 500 mcg PO DAILY 12/28/22 acetaZOLAMIDE [Diamox*] 250 mg PO DAILY #30 tab 12/28/22 predniSONE [Deltasone*] 10 mg PO DAILY #14 tab 12/28/22 Fluticasone/Umeclidin/Vilanter [Trelegy Ellipta 200-62.5-25] 1 each IH BID 30 Days #1 inh 01/03/23 levoFLOXacin [Levaquin] 750 mg PO DAILY 5 Days #5 tab 01/03/23 New Medications: levoFLOXacin [Levaquin] 750 mg PO DAILY 5 Days #5 tab Fluticasone/Umeclidin/Vilanter [Trelegy Ellipta 200-62.5-25] 1 each IH BID 30 Days #1 inh Physician Discharge Instructions: Patient presented with dyspnea, lethargy/altered mental status. She was found to have Acute on chronic hypercapnic respiratory failure secondary to home vent and mild COPD exacerbation. She was placed on hospital ventilator and had quick resolution. Her home vent settings were adjusted and she was observed for 24hrs on her home vent and did well. Pulmonology was consulted. She was treated with Diamox, steroids, Daliresp. On admission, her urinalysis revealed +Leukocyte esterase, 50+ WBC, 50+ bacteria. Urine cultures grew Klebsiella Pneumoniae and was treated with IV levaquin. She is to be discharged home and finish 7 day course of PO levaquin. New Prescription: Levaquin Trelegy refilled Deflate cuff prior to taking inhaler, reinflate cuff after Follow up: PCP 3-5 days Pulmonology within 2-4 weeks
[2023-01-03] MEDS ORDERED: KCL 20 MEQ/100 mL IVPB 20 MEQ/100 ML BAG IV ONE (09:00)
[2023-01-03] MEDS: INSULIN GLARGINE 100 UNIT/ML SQ SCH (09:01)
[2023-01-03] MEDS: ENOXAPARIN 40 MG/0.4 ML SQ SCH (09:09)
[2023-01-03] MEDS: INSULIN -REGULAR HUMAN 50 UNIT/0.5 ML ML SQ SCH ×2 (09:09→11:30)
[2023-01-03] MEDS: SPIRONOLACTONE 25 MG TABLET PO SCH (09:10)
[2023-01-03] MEDS: acetaZOLAMIDE 250 MG TAB PO SCH (09:10)
[2023-01-03] MEDS: PARoxetine HCL 10 MG TAB PO SCH (09:10)
[2023-01-03] MEDS: predniSONE 10 MG TAB PO SCH (09:10)
[2023-01-03] MEDS: ROFLUMILAST 500 MCG TABLET PO SCH (09:10)
[2023-01-03] MEDS: CYCLOBENZAPRINE 10 MG TAB PO SCH ×2 (09:11→14:03)
[2023-01-03] MEDS: ONDANSETRON 4 MG/2 ML VIAL IV PRN (10:34)
[2023-01-03 10:37] LABS: Arterial Blood Carboxyhemoglob 1.3 % (0-1.5); Blood Gas Oxyhemoglobin 94.8 % (94-97); Blood O2 Saturation 97.3 % (92-98.5)
--- NOTE | 2023-01-03 11:44 | RAD REPORT ---
EXAM DESCRIPTION: CT chest without IV contrast CLINICAL HISTORY: 62 years Female eval for pneumonia, abn cxr, respiratory failure TECHNIQUE: Axial CT imaging of the chest was performed without intravenous contrast. Sagittal and coronal reconstructed images were then performed. The CT study is performed according to ALARA (as lo w as reasonably achievable) or ALARA/IMAGE GENTLY, with automatic adjustment of mA and/or kV accordin g to patient size. Performed on: 01/01/2023 at 4:39 AM COMPARISON: CT chest performed on 12/22/2022. FINDINGS: CT CHEST: Lungs: The lungs are well-expanded. There is very mild bibasilar patchy parenchymal opacification lik kim due to atelectasis. There is a stable 1.2 cm left upper lobe calcified granuloma. There are no pl eural effusions. There is no pneumothorax. The central airways are patent. The tracheostomy cannula t erminates above the susanna and is stable. Heart: The heart is normal in size. There is no pericardial effusion. Mediastinum: The mediastinum is unremarkable. There is mild enlargement of the pulmonary artery mika nk relative to the thoracic aorta. This appearance is nonspecific but can be seen with underlying uln ar artery hypertension. There are mild atherosclerotic calcifications along the thoracic aorta. Bones: No acute osseous abnormalities are identified. Soft tissues: No focal soft tissue abnormalities are identified. Lymphadenopathy: No pathologic hilar, mediastinal or axillary lymphadenopathy is identified. Upper abdomen: The gallbladder is surgically absent. IMPRESSION: 1. Mild bibasilar patchy parenchymal opacification most likely due to atelectasis, sim ilar when compared to the prior study. Bibasilar pneumonia is not entirely excluded. 2. Stable 1.2 cm left upper lobe calcified granuloma. 3. Mild enlargement of the pulmonary artery trunk relative to the thoracic aorta. This appearance i s nonspecific but can be seen with underlying pulmonary artery hypertension. 4. Remote cholecystectomy. Electronically signed by: Belinda Mohamud DO 01/01/2023 5:29 AM CDT Due to temporary technical issues with the PACS/Fluency reporting system, reports are being signed by the in house radiologists without review as a courtesy to insure prompt reporting. The interpreting radiologist is fully responsible for the content of the report.
--- NOTE | 2023-01-03 12:30 | RAD REPORT ---
EXAM DESCRIPTION: Chest Single View CLINICAL HISTORY: DYSPNEA TECHNIQUE: AP chest COMPARISON: December 12 FINDINGS: CHEST: Tracheostomy cannula remains in place. Mild cardiomegaly. Lung bases suboptimally evaluated secondary to superimposed soft tissue. Suspect airspace disease and or atelectasis in the right lung base. The left costophrenic angle is excluded from the [id number]. Left upper lobe radiopacity, unchanged and consistent with calcified granuloma. IMPRESSION: 1. Mild cardiomegaly. 2. Suspect airspace disease and or atelectasis in the right lung base. 3. Follow-up PA and lateral radiographs would be helpful in further evaluation. Electronically signed by: Justin Reich MD 01/01/2023 12:39 AM CDT Due to temporary technical issues with the PACS/Fluency reporting system, reports are being signed by the in house radiologists without review as a courtesy to insure prompt reporting. The interpreting radiologist is fully responsible for the content of the report.
[2023-01-03 14:40] VITALS: BP 152/84; TEMP 98.5
== END 2023-01-03 15:00 | disposition home or self-care (01) | DRG 208 ==
LOC: ER 00:03 → ERHOLD 05:32 → 3RD-ICU 20:26
PROVIDERS: ADMIT Hospitalist; ATTEND Hospitalist
PROC: 5A1945Z Respiratory Ventilation, 24-96 Consecutive Hours (ICD-10-PCS; principal; 2023-01-01)
DX: J96.22 Acute and chronic respiratory failure with hypercapnia (principal); I50.32 Chronic diastolic (congestive) heart failure; E87.29 Other acidosis; J44.1 Chronic obstructive pulmonary disease with (acute) exacerbation; E11.65 Type 2 diabetes mellitus with hyperglycemia; E03.9 Hypothyroidism, unspecified; E78.5 Hyperlipidemia, unspecified; F17.210 Nicotine dependence, cigarettes, uncomplicated; Z88.5 Allergy status to narcotic agent; Z93.0 Tracheostomy status; Z88.1 Allergy status to other antibiotic agents; Z88.8 Allergy status to other drugs, medicaments and biological substances; Z79.4 Long term (current) use of insulin; Z79.52 Long term (current) use of systemic steroids; Z90.710 Acquired absence of both cervix and uterus; Z79.890 Hormone replacement therapy; Z79.899 Other long term (current) drug therapy
CPT/HCPCS: 36415; 36600; 71045; 71250; 80048; 80053; 81001; 82805; 82947; 83605; 83735; 84132; 85025; 85610; 85730; 87040; 87077; 87086; 87088; 87186; 93005; 94002; 94003; 94640; 94760; 96372; 96374; 99285; J1650; J1815; J2405; J2550; J2930; J3480; J7512; J7605; J7613; J7644

== ENCOUNTER 2023-04-19 12:36 | Inpatient (IN) | payer OTHER ==
--- OUTSIDE RECORDS SUMMARY | 2023-04-19 12:57 | XMS REPORT | Continuity of Care Document ---
:1960 Author Organization [facility] t Address [address] [facility] [address] [place] [address] Care Team Providers Name Role Phone Gab Luna Primary Care Physician LV LIZ Attending Clinician Unavailable LV LIZ Attending Clinician Unavailable MONET PRATT Attending Clinician Unavailable Doctor Unassigned, [place] Attending Clinician Unavailable Alessandra Arrieta RN Attending [...] Attending Clinician Sunshine Pelaez MD Attending Clinician [phone] VALERIANO PANTOJA Attending Clinician Unavailable Valeriano Pantoja MD Attending Clinician JONAS HERNANDEZ Attending Clinician Unavailable Layne Guallpa MD Attending Clinician SHAHLA ANDRADE Attending Clinician Unavailable Janis Valencia MD Attending Clinician [phone] Cory Cee MD Attending Clinician DUKE VELAZQUEZ [...] Clinician Unavailable JUNE CALDERON Attending Clinician Unavailable VL LIZ Admitting Clinician Unavailable Lv Liz DO [...] Expiration Date S anatoly [employer] OPEN ACCESS [id number] 2022 MANAGED CHOICE POS 00:00:00 [employer] COMMERCIAL [id number] 2022 OUT OF NETWORK 00:00:00 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 [id number] 2019 00:00:00 Problems Condition Condition Condition Status [...] Active U nivers 8- ity of 00:00: [place] [facility] Abdominal Abdominal Disease Active Uni vers pain pain 8- ity of 00:00: [place] [facility] Tracheomal Tracheomal Disease Active U nivers acia acia 7 ity of 00:: [place] [facility] Tracheosto Tracheosto Disease Active U nivers my in my in [address] 00:00: [place] [facility] Dyspnea, Dyspnea, Disease Active Unive rs unspecifie unspecifie 7 it y of d type d type 00:00: [place] [facility] Acute Acute Disease Active [facility] [place] respirator respirator 7 it y of y failure y failure 00:[place] with with 00 Medical hypoxia hypoxia Branch and and hypercapni hypercapni a a Elevated Elevated Disease Active Unive rs brain brain 7 ity of natriureti natriureti 00:[place] c peptide c peptide 00 [facility] (BNP) (BNP) Branch level level Anasarca Anasarca [...] [place] y failure y failure 00 [facility] michel Branch Obesity Obesity Disease Active Univers (BMI (BMI 3-17 ity of 30-39.9) 30-39.9) 00:00: [place] [facility] VAP VAP Disease Active Univers [...] of with with 00:00: [place] hypoxia hypoxia 00 Medical and and Branch [...] [facility] (Sulfona ty to Comments) 5 [facility] adverse 00:00: Medical Antibiot reaction [...] Medical s Branch CIPROFLO DRUG Active Other-[facility] ers XACIN INGREDI 03-08 ity of HCL [...] ty to comments 02-22 chela ity of [place] adverse 00:00: swell [place] reaction Medical s [...] History SDOH Social Unive rsity of Connections [facility] Med ical Together Branch History SDOH Social Unive rsity of Connections [facility] Medical Branch History SDOH Social Unive rsity of Connections [place] [facility] Membership Branch History SDOH Social Unive rsity of Connections [place] [facility] Meetings Branch History of tobacco Passive smoker Un iversity of use [place] [facility] History SDOH [facility] Exposure to 2022-11-30 2022-12-10 Not sure University of SARS-CoV-2 (event) 00:00:00 16:41:00 [place] [facility] History SDOH 2022-12-08 2022-12-08 1 University o f Alcohol Frequency 00:00:00 00:00:00 [place] M edical Branch History SDOH Social 2022-12-08 2022-12-08 5 Unive rsity of Connections Phone 00:00:00 00:00:00 [facility] edical Branch History SDOH Social 2022-12-08 2022-12-08 3 Unive rsity of Connections Living 00:00:00 00:00:00 [place] [facility] History SDMT 2022-12-08 2022-12-08 0 University o f Physical Activity 00:00:00 00:00:00 [facility] edical DPW Branch History SDMT 2022-12-08 2022-12-08 0 University o f Physical Activity 00:00:00 00:00:00 [facility] edical MPS Branch History SDMT 2022-12-08 2022-12-08 5 University o f Financial 00:00:00 00:00:00 [place] [facility] History [facility] Food 2022-12-08 2022-12-08 1 Univers ity of Worry 00:00:00 00:00:00 [place] [facility] History SDMT Food 2022-12-08 2022-12-08 1 Univers ity of Scarcity 00:00:00 00:00:00 [facility] [place] [facility] Cigarettes smoked 2022-12-07 2022-12-07 Univers ity of current (pack per 00:00:00 00:00:00 [facility] edical day) - Reported Branch Cigarette 2022-12-07 2022-12-07 University of pack-years 00:00:00 00:00:00 [facility] [place] [facility] Tobacco use and 2022-12-07 2022-12-07 Smokeless Universit y of exposure 00:00:00 00:00:00 tobacco non-user [facility] dical Branch History [facility] 2022-11-25 2022-11-[address] [facility] Med 00:00:00 00:00:[address] History [facility] 2022-11-25 2022-11-[address] [facility] Housing Unable to 00:00:00 00:00:00 Medical Center Pay History [facility] 2022-11-25 2022-11-[address] [facility] Housing Places 00:00:00 00:00:00 Medical Ce nter Lived History [facility] 2022-11-25 2022-11-[address] [facility] Homeless 00:00:00 00:00:00 Medical Center Last Year Alcohol intake 2022-11-25 2022-11-25 Ex-drinker [facility] 00:00:00 00:00:00 (finding) [facility] Tobacco Comment 2022-02-12 2022-02-12 Pt trached Universit y of 00:00:00 00:00:00 [facility] [place] [facility] Sex Ass[birth year] At [birth year] INNA Ferreira 00:00:00 00:00:00 Medical Center Smoking Status Start Date Stop Date Source Ex-smoker 2022-12-07 00:00:00 2022-12-07 00:00:00 Universi ty of [facility] [place] [facility] Smokes tobacco daily 2022-02-12 00:00:00 Univers ity [facility] Medications Ordered Filled Start Stop Current Ordering Indication Dosage Frequency Signature Comments Components Source Medication Medication Date Date Medication? Clinician (SIG) Name Name insulin Yes [id number] 25U inject 25 Univers glargine 5-19 Units ity of 100 unit/mL 00:00: under the [place] injection 00 skin every Medi michel 24 Branch (twenty-fo ur) hours. polyethylen Yes [id number] 17g Take 1 Univers e glycol 5-19 Packet by ity of 3350 17 00:00: mouth in [place] gram powder 00 the Medical morning. Branch sennosides- Yes [id number] 1{tbl} Take 1 Univers docusate 5-19 tablet by ity of sodium 00:00: mouth in [place] 8.6-50 mg 00 the Medical per tablet morning. Bran h insulin Yes [id number] 25U inject 25 Univers glargine 5-19 Units ity of 100 unit/mL 00:00: under the [place] injection 00 skin every Medi michel 24 Branch (twenty-fo ur) hours. polyethylen Yes [id number] 17g Take 1 Univers e glycol 5-19 Packet by ity of 3350 17 00:00: mouth in [place] gram powder 00 the Medical morning. Branch sennosides- Yes [id number] 1{tbl} Take 1 Univers docusate 5-19 tablet by ity of sodium 00:00: mouth in [place] 8.6-50 mg 00 the Medical per tablet morning. Bran h insulin Yes [id number] 25U inject 25 Univers glargine 5-19 Units ity of 100 unit/mL 00:00: under the [place] injection 00 skin every Medi michel 24 Branch ( ur) hours. polyethylen 2022-0 Yes [id number] 17g Take 1 Univers e glycol 5-19 Packet by ity of 3350 17 00:00: mouth in [place] gram powder 00 the Medical morning. [facility]- 2022-0 Yes [id number] 1{tbl} Take 1 Univers docusate 5-19 tablet by ity of sodium 00:00: mouth in [place] 8.6-50 mg 00 the Medical per tablet morning. [facility] insulin 2022-0 Yes [id number] 25U inject 25 Univers glargine 5-19 Units ity of 100 unit/mL 00:00: under the [place] injection 00 skin every Medi mihcel 24 Branch ( ur) hours. polyethylen 2022-0 Yes [id number] 17g Take 1 Univers e glycol 5-19 Packet by ity of 3350 17 00:00: mouth in [place] gram powder 00 the Medical morning. [facility]- 2022-0 Yes [id number] 1{tbl} Take 1 Univers docusate 5-19 tablet by ity of sodium 00:00: mouth in [place] 8.6-50 mg 00 the Medical per tablet morning. [facility] hydrOXYzine 2022-0 Yes [id number] 10mg Take 1 Univers 10 mg 5-19 06 tablet by ity of tablet 00:00: mouth [place] 00 every 8 Medical (eight) Branch hours as needed for Anxiety. insulin 2022-0 Yes [id number] 25U inject 25 Univers glargine 5-19 Units ity of 100 unit/mL 00:00: under the [place] injection 00 skin every Medi michel 24 Branch (fo ur) hours. polyethylen 2022-0 Yes [id number] 17g Take 1 Univers e glycol 5-19 Packet by ity of 3350 17 00:00: mouth in [place] gram powder 00 the Medical morning. [facility]- 2022-0 Yes [id number] 1{tbl} Take 1 Univers docusate 5-19 tablet by ity of sodium 00:00: mouth in [place] 8.6-50 mg 00 the Medical per tablet morning. Bran h hydrOXYzine 0 Yes [id number] 10mg Take 1 Univers 10 mg 5-19 06 tablet by ity of tablet 00:00: mouth [place] 00 every 8 Medical (eight) Branch hours as needed for Anxiety. HYDROcodone Yes 1{tbl} Take 1 Un alexia [...] Medica l base)/3 mL needed for [facility] nebulizer Wheezing. solution dulaglutide Yes Trulicity U [...] Medica l base)/3 mL needed for [facility] nebulizer Wheezing. solution dulaglutide Yes Trulicity U [...] 0 Yes 1{ampul 1 Ampule Univers -albuterol 5-18 e} every 4 ity of 0.5 mg-3 16:11: (four) [place] mg(2.5 mg 15 hours as Medica l base)/3 mL needed for [facility] nebulizer Wheezing. solution dulaglutide Yes Trulicity U [...] 0 Yes 1{ampul 1 Ampule Univers -albuterol 5-18 e} every 4 ity of 0.5 mg-3 16:11: (four) [place] mg(2.5 mg 15 hours as Medica l base)/3 mL needed for [facility] nebulizer Wheezing. solution dulaglutide 0 Yes Trulicity U nivers (TRULICITY) 5-18 3 mg/0.5 ity of 3 mg/0.5 mL 16:11: mL [place] PnIj 15 subcutaneo Medical pen Branch injector metFORMIN 2022-0 Yes 750mg Take 750 Uni vers 500 mg 24 5-18 mg by ity of hr tablet 16:11: mouth [place] 15 daily with Medical breakfast. Branch spironolact 2022-0 Yes 25mg Take 25 mg Univers one 25 mg 5-18 by mouth ity of tablet 16:11: in the [place] 15 morning. Medical Branch Levothyroxi 2022-0 Yes 50ug Take 50 Uni vers ne 100 mcg 5-18 mcg by ity of capsule 16:11: mouth. [place] 15 Medical Branch famotidine 2022-0 Yes 40mg [...] Medica l base)/3 mL needed for [facility] nebulizer Wheezing. solution dulaglutide 0 Yes Trulicity U nivers (TRULICITY) 5-18 3 mg/0.5 ity of 3 mg/0.5 mL 16:11: mL [place] PnIj 15 subcutaneo Medical pen Branch injector metFORMIN 2022-0 Yes 750mg Take 750 Uni vers 500 mg 24 5-18 mg by ity of hr tablet 16:11: mouth [place] 15 daily with Medical breakfast. Branch spironolact 2022-0 Yes 25mg Take 25 mg Univers one 25 mg 5-18 by mouth ity of tablet 16:11: in the [place] 15 morning. Medical Branch Levothyroxi 2022-0 Yes 50ug Take 50 Uni vers ne 100 mcg 5-18 mcg by ity of capsule 16:11: mouth. [place] 15 Medical Branch famotidine 2022-0 Yes 40mg [...] tablet 16:11: [place] 15 Medical Branch barium 0 2022- No [id number] 30g 30 g, Univ ers sulfate 12-10-18 Oral, ity of (VARIBAR 14:30: 14:15 ONCE, 1 [place] THIN 00 :00 dose, On Medical LIQUID) [...] dose, contact prescriber .
barium 2022- No [id number] 30mL 30 mL, Uni vers sulfate-NO 12-10 Oral, ity of CHARGE- 14:15: 14:15 ONCE, 1 [place] (VARIBAR 00 :00 dose, On Medical NECTOR) 40 [place] Branch % (w/v) 12/10/22 at oral 0915, suspension Routine 30 mL insulin Yes 25U 25 Units, Unive rs glargine -18 Subcutaneo ity o f (LANTUS 14:00: us, Q24H, [place] U-100) 00 First dose Medical injection (after Branch 25 Units last modificati on) on Anayeli 12/10/22 at 0900, Until Discontinu ed, Routine potassium 2022-2022- No 20meq 20 mEq, IV Univers chloride in 12-10 Piggyback, i ty of water (KCL) 13:00: 18:03 Q2H, 2 Compa as 20 mEq/100 00 :02 doses, Medical mL RTU IVPB First dose Br anch 20 mEq on Anayeli 12/10/22 at 0800, Last dose on Wed12/10/22 at 1000, 100 mL insulin 2022-0 2023- No Novolog Univer s aspart 12-10 FlexPen ity of U-100 12:49: 00:00 U-100 [place] (NOVOLOG 18 :00 Insulin Medical FLEXPEN aspart 100 Branch U-100 unit/mL (3 INSULIN) mL) 100 unit/mL subcutaneo (3 mL) us injection pregabalin 2023-0 Yes [id number] 100mg Take 1 Univers 100 mg 5-18 capsule by ity of capsule 00:00: mouth in [place] 00 the Medical morning Branch and 1 capsule in the evening. simethicone 2023-0 Yes [id number] 80mg Take 1 Univers 80 mg 5-18 tablet by ity of chewable 00:00: mouth [place] tablet 00 after Medical meals and Branch at bedtime. pregabalin 2023-0 Yes [id number] 100mg Take 1 Univers 100 mg 5-18 capsule by ity of capsule 00:00: mouth in [place] 00 the Medical morning Branch and 1 capsule in the evening. simethicone 2023-0 Yes [id number] 80mg Take 1 Univers 80 mg 5-18 tablet by ity of chewable 00:00: mouth [place] tablet 00 after Medical meals and Branch at bedtime. pregabalin 2023-0 Yes [id number] 100mg Take 1 Univers 100 mg 5-18 capsule by ity of capsule 00:00: mouth in [place] 00 the Medical morning Branch and 1 capsule in the evening. simethicone 2023-0 Yes [id number] 80mg Take 1 Univers 80 mg 5-18 tablet by ity of chewable 00:00: mouth [place] tablet 00 after Medical meals and Branch at bedtime. pregabalin 2023-0 Yes [id number] 100mg Take 1 Univers 100 mg 5-18 capsule by ity of capsule 00:00: mouth in [place] 00 the Medical morning Branch and 1 capsule in the evening. simethicone 2023-0 Yes [id number] 80mg Take 1 Univers 80 mg 5-18 tablet by ity of chewable 00:00: mouth [place] tablet 00 after Medical meals and Branch at bedtime. pregabalin 2022-0 Yes [id number] 100mg Take 1 Univers 100 mg 5-18 capsule by ity of capsule 00:00: mouth in [place] 00 the Medical morning Branch and 1 capsule in the evening. simethicone 2022-0 Yes [id number] 80mg Take 1 Univers 80 mg 5-18 tablet by ity of chewable 00:00: mouth [place] tablet 00 after Medical meals and Branch at bedtime. simethicone 2022-0 Yes 80mg 80 mg, Univ ers (GAS RELIEF 5-17 Oral, ity of (SIMETHICON 18:00: PC+HS, [place] E)) 00 First dose Medical chewable on Wed Branch tablet 80 12/09/22 at mg 1300, Until Discontinu ed, Routine ondansetron 0 Yes [...] Yes 40mg 40 mg, Unive rs (PEPCID) 12-09 Oral, ity of tablet 40 14:00: DAILY, [place] mg 00 First dose Medical (after Branch last modificati on) on Wed12/09/22 at 0900, Until Discontinu ed, Routine insulin 2022- No 50U 50 Units, Univ ers glargine 12-09 Subcutaneo ity of (LANTUS 14:00: 13:36 us, Q24H, [place] U-100) 00 :24 First dose Medical injection (after Branch 50 Units last modificati on) on Wed12/09/22 at 0900, Until Discontinu ed, Routine potassium 2022-2022- No 40meq 40 mEq, IV Univers chloride in 12-09 Infusion, it y of water (KCL) 11:00: 13:25 Q2H ES, 1 [place] 20 mEq/100 00 :00 dose, Medical mL RTU IVPB First dose Br anch 40 mEq on Wed12/09/22 at 0600, 200 mL ondansetron 2022- No 4mg 4 mg, Slow Univers (ZOFRAN 12-09 IV Push, ity of (PF)) 08:00: 07:32 ONCE, On [place] injection 4 00 :00 Wed Medical mg [...] dose [place] mg 00 on Wed [facility] 12/08/22 at Branch 2300, Until Discontinu ed, Routine LORazepam 2022- No 1mg 1 mg, Slow U nivers (ATIVAN) 12-09 IV Push, ity of injection 1 00:45: 00:09 ONCE, 1 [place] mg 00 :00 dose, On Medical [facility] Branch 12/08/22 at 1945, Routine ondansetron 0 [...] 225 mL, U nivers neral oil 12-08 05-16 Rectal, ity of (AGLO 18:00: 19:21 ONCE, 1 [place] ENEMA) 00 :00 dose, On Medical (COMPOUNDED [facility] ) Enem 225 12/08/22 at mL 1300, Routine polyethylen 0 Yes 17g 17 g, Unive rs e glycol 5-16 Oral, ity of 3350 powder 16:15: DAILY, [place] 17 g 00 First dose Medical on [facility] 12/08/22 at 1115, Until Discontinu ed, Routine sennosides- 0 Yes 1{tbl} 1 tablet, Univers docusate -16 Oral, ity of sodium 16:15: DAILY, [place] (SENOKOT-S) 00 First dose Me dical 8.6-50 mg on Wed [place] per tablet 12/08/22 at 1 tablet 1115, Until Discontinu ed, Routine morpHINE (4 Yes 4mg 4 mg, Slow Univers mg/mL) 5-16 IV Push, ity of injection 4 15:04: Q4HPRN, [place] mg 13 Starting Medical on [facility] 12/08/22 at 1004, Until Discontinu ed, Routine, Pain (scale 7-10) nicotine 0 Yes 1{patch 1 Patch, Un alexia (NICODERM) 5-16 } Topical, ity o f 7 mg/24 hr 14:00: Administer [place] patch 1 00 over 24 Medical Patch Hours, Branch Q24H, First dose on [facility] 12/08/22 at 0900, Until Discontinu ed, Routine spironolact 0 Yes 25mg 25 mg, Univ ers one 5-16 Oral, ity of (ALDACTONE) 14:00: DAILY, [place] tablet 25 00 First dose Medi michel mg on [facility] 12/08/22 at 0900, Until Discontinu ed, Routine furosemide Yes 40mg 40 mg, Unive rs (LASIX) 5-16 Oral, ity of tablet 40 14:00: DAILY, [place] mg 00 First dose Medical on Wed [place] 12/08/22 at 0900, Until Discontinu ed, Routine pregabalin Yes 100mg 100 mg, Uni vers (LYRICA) 5-16 Oral, BID, ity o f capsule 100 13:00: First dose [place] mg 00 on [facility] 12/08/22 at Branch 0800, Until Discontinu ed, Routine aspirin Yes 81mg 81 mg, Univers chewable 5-16 Oral, QAM ity of tablet 81 13:00: WITH [place] mg 00 BREAKFAST, Medical First dose Branch on Wed12/08/22 at 0800, Until Discontinu ed, Routine famotidine 2022- No 20mg 20 mg, Univ ers (PEPCID 12-08 Slow IV ity of (PF)) 13:00: 12:59 Push, [place] injection 00 :00 Q12H, 2 Medical 20 mg doses, Branch First dose on Wed12/08/22 at 0800, Last dose on Wed12/08/22 at 2000, Routine levothyroxi Yes 50ug 50 mcg, Uni vers ne 5-16 Oral, ity of (SYNTHROID) 11:00: QAM-0600, [place] tablet 50 00 First dose Medi michel mcg on [facility] 12/08/22 at 0600, Until Discontinu ed ondansetron [...] First dose [place] mg 00 on [facility] Medical 12/07/22 at Branch 2100, Until Discontinu ed, Routine LORazepam Yes .5mg 0.5 mg, Unive rs (ATIVAN) 5-16 Slow IV ity of injection 01:49: Push, [place] 0.5 mg 12 BIDPRN, Medical Starting Branch on Wed12/07/22 at 2049, Until Discontinu ed, Routine, Anxiety dexMEDEtomi 0 202- No .2ug/kg 0.2-1.5 Univers dine 400 [...] at 2000, Until Discontinu ed, Routine acetylcyste No 1mL 200 mg (1 Univers ine 12-07 05-17 mL), ity of (MUCOMYST) 23:00: 21:57 Inhalation [place] 200 mg/mL 00 :48 , Q6H, 12 Medic al (20 %) doses, Branch inhalation First dose solution on [facility] 200 mg 12/07/22 at 1800, Last dose on Anayeli 12/10/22 at 1200, Routine insulin 2022- No 50U 50 Units, Univ ers glargine 12-07 05-16 Subcutaneo ity of (LANTUS 23:00: 13:56 us, Q24H, [place] U-100) 00 :47 First dose Medical injection on [facility] 50 Units 12/07/22 at 1800, Until Discontinu ed, Routine Sliding 2022- No Subcutaneo Uni vers Scale 12-07 05-15 us, TID ity of Insulin - 22:00: 22:05 MEALS+HS, [place] Lispro 00 :29 First dose Medical (HumaLOG) on [facility] 12/07/22 at 1700, Until Discontinu ed, Routine dextrose Yes 250mL 250 mL, IV Un alexia 10% (D10W) 5-15 Infusion, ity of bolus 20:33: PRN - SEE [place] infusion 27 INSTRUCTIO Medic al 250 mL NS, Branch Administer over 60 Minutes, Other, If blood glucose is < or = 70 mg/dL and patient is unable to swallow or has mental status changes, Starting on [facility] 12/07/22 at 1533
If blood glucose is [...]
glucagon Yes 1mg 1 mg, Univers (GLUCAGEN -15 Intramuscu ity of DIAGNOSTIC 20:33: lar, PRN, [...] of 0.02 % 19:00: 21:40 , TID, [employer] nebulizer 00 :40 First dose Medi michel [...] maximum allowed dose, contact prescriber .
levothyroxi 2022-0 3- No 50ug Take [address] [facility] ne 5-05 06-04 tablet (50 [facility] (SYNTHROID, 00:00: 23:59 mcg total) Medical LEVOTHROID) 00 :00 by mouth Cent er 50 MCG Every tablet morning on an empty stomach for 30 days. levothyroxi 2022-0 2022- No 50ug Take [address] [facility] [address] ne 5-05 06-04 tablet (50 [facility] (SYNTHROID, 00:00: 23:59 mcg total) Medical LEVOTHROID) 00 :00 by mouth Cent er 50 MCG Every tablet morning on an empty stomach for 30 days. levothyroxi 2022-0 2022- No 50ug Take [address] [facility] ne 5-05 06-04 tablet (50 [facility] (SYNTHROID, 00:00: 23:59 mcg total) Medical LEVOTHROID) 00 :00 by mouth Cent er 50 MCG Every tablet morning on an empty stomach for 30 days. levothyroxi 2022-0 2022- No 50ug Take [address] [facility] ne 5-05 05-04 tablet (50 [facility] (SYNTHROID, 00:00: 00:00 mcg total) Medical LEVOTHROID) 00 :00 by mouth Cent er 50 MCG Every tablet morning on an empty stomach for 30 days. levothyroxi 2022-0 2022- No 50ug Take [address] [facility] ne 5-05 05-04 tablet (50 [facility] (SYNTHROID, 00:00: 00:00 mcg total) Medical LEVOTHROID) 00 :00 by mouth Cent er 50 MCG Every tablet morning on an empty stomach for 30 days. levothyroxi 2022-0 3- No 50ug Take [address] [facility] [address] ne 5-05 05-04 tablet (50 [facility] (SYNTHROID, 00:00: 00:00 mcg total) Medical LEVOTHROID) 00 :00 by mouth Cent er 50 MCG Every tablet morning on an empty stomach for 30 days. pregabalin 2022-0 2022- No 300mg Q.5D Take [address] (LYRICA) 11-26- capsule [facility] 300 MG 00:00: 23:59 (300 mg Medical capsule 00 :00 total) by Center mouth in the morning and 1 capsule (300 mg total) before bedtime. Do all this for 30 days. Max Daily Amount: 600 mg. QUEtiapine 2022-0 2022- No 50mg QD Take [address] [facility] [address] (SEROquel) 11-26-03 tablet (50 Yvonne kes 50 MG 00:00: 23:59 mg total) Medica l tablet 00 :00 by mouth Center nightly for 30 days. amLODIPine 2022-2022- No 5mg [...] QD Take [address] [facility] (PAXIL) 10 11-26- tablet (10 Yvonne kes MG tablet 00:00: [...] .4mg QD Take [address] [facility] [address] (FLOMAX) 11-26-03 capsule [facility] 0.4 mg Cap 00:00: 23:59 [...] QD Take [address] [facility] (PAXIL) 10 11-26- tablet (10 Yvonne kes MG tablet 00:00: [...] the morning for 30 days. pregabalin 2022- No 300mg Q.5D Take [address] (LYRICA) 11-26- capsule [facility] 300 MG 00:00: 23:59 (300 mg Medical capsule 00 :00 total) by Center mouth in the morning and 1 capsule (300 mg total) before bedtime. Do all this for 30 days. Max Daily Amount: 600 mg. QUEtiapine 2022- No 50mg QD Take [address] (SEROquel) 11-26- tablet (50 Yvonne kes 50 MG 00:00: 23:59 mg total) Medica l tablet 00 :00 by mouth Center nightly for 30 days. amLODIPine 2022- No 5mg QD Take [address] [facility] (NORVASC) 5 11-26 06-03 tablet (5 Yvonne kes MG tablet [...] the morning for 30 days. pregabalin 2022- No 300mg Q.5D Take [address] (LYRICA) 11-26-03 capsule [facility] 300 MG 00:00: 23:59 (300 mg Medical capsule 00 :00 total) by Center mouth in the morning and 1 capsule (300 mg total) before bedtime. Do all this for 30 days. Max Daily Amount: 600 mg. QUEtiapine 2022- No 50mg QD Take [address] [facility] (SEROquel) 11-26-03 tablet (50 Yvonne kes 50 MG 00:00: 23:59 mg total) Medica l tablet 00 :00 by mouth Center nightly for 30 days. amLODIPine 3-0 3- No 5mg QD Take [address] [facility] (NORVASC) 5 5-04 06-03 tablet (5 Yvonne kes MG tablet 00:00: 23:59 mg total) Me dical 00 :00 by mouth Center in the morning for 30 days. amLODIPine 3-0 3- No 5mg Take 1 Univ ers 5 mg tablet 5- 05-18 tablet by it y of 00:00: 00:00 mouth. [place] 00 :00 Medical Branch tamsulosin 3-0 2023- No .4mg Take 1 Univ ers 0.4 mg 24 5- 05-18 capsule by ity of hr capsule 00:00: 00:00 mouth. [place]aa s 00 :00 Medical Branch tamsulosin 3-0 2023- No .4mg QD Take [address] [facility] (FLOMAX) 5- 05-04 capsule [facility] 0.4 mg Cap 00:00: 00:00 (0.4 mg Med ical 24 hr 00 :00 total) by Center capsule mouth in the morning for 30 days. amLODIPine 3-0 3- No 5mg QD Take [address] [facility] (NORVASC) 5 5-04 05-04 tablet (5 Yvonne kes MG tablet 00:00: 00:00 mg total) Me dical 00 :00 by mouth Center in the morning for 30 days. furosemide 2022-0 3- No 20mg QD Take [address] [facility] [facility] (LASIX) 20 5- 05-04 tablet (20 Yvonen kes MG tablet 00:00: 00:00 mg total) Me dical 00 :00 by mouth Center in the morning for 30 days. rosuvastati 3-0 3- No 10mg QD Take [address] [facility] [facility] (CRESTOR) 5-04 05-04 tablet (10 L ukes 10 MG 00:00: 00:00 mg total) Medica l tablet 00 :00 by mouth Center in the morning for 30 days. spironolact 3-0 3- No 25mg QD Take [address] [facility] one 5-04 05-04 tablet (25 [facility] (ALDACTONE) 00:00: 00:00 mg total) Medical 25 MG 00 :00 by mouth Center tablet in the morning for 30 days. PARoxetine 2022-0 2022- No 10mg QD Take [address] [facility] (PAXIL) 10 5-04 05-04 tablet (10 Yvonne kes MG tablet 00:00: 00:00 mg total) Me dical 00 :00 by mouth Center in the morning for 30 days. tamsulosin 2022-0 2022- No .4mg QD Take [address] [facility] (FLOMAX) 5-04 05-04 [facility] mg Cap 00:00: 00:00 (0.4 mg Med ical 24 hr 00 :00 total) by Center capsule mouth in the morning for 30 days. amLODIPine 2022-0 2022- No 5mg QD Take 1 [facility] [...] the morning for 30 days. spironolact 2022-2022- No 25mg QD Take [address] [facility] one 5-04 05-04 tablet (25 [facility] (ALDACTONE) 00:00: 00:00 mg total) Medical 25 MG 00 :00 by mouth Center tablet in the morning for 30 days. PARoxetine 2022-0 2022- No 10mg QD Take [address] [facility] (PAXIL) 10 5-04 05-04 tablet (10 Yvonne kes MG tablet 00:00: 00:00 mg total) Me dical 00 :00 by mouth Center in the morning for 30 days. tamsulosin 2022-0 2022- No .4mg QD Take [...] QD Take [address] [facility] one 5- 05-04 tablet (25 [facility] (ALDACTONE) 00:00: 00:00 mg total) Medical 25 MG 00 :00 by mouth Center tablet in the morning for 30 days. PARoxetine 2022- No 10mg QD Take [address] [facility] (PAXIL) 10 11-26 05-04 tablet (10 Yvonne kes MG tablet 00:00: 00:00 mg total) Me dical 00 :00 by mouth Center in the morning for 30 days. predniSONE 2022- No [id number] 50mg Take 5 [facility] 10 mg 2-16 - tablets by ity of tablet 00:00: 05:59 mouth in [place] 00 :00 the [facility] morning Branch for 4 days. methylpredn 2022- No 125mg 125 mg, U nivers isolone sod 09-09- Slow IV ity of succ 14:00: 13:20 Push, ONCE [place] (SOLU-MEDRO 00 :00 NOW, 1 Medica l L) dose, On Branch injection Wed 125 mg 09/09/22 at 0800, CT albuterol 2022- No 5mg 5 mg, Univer s (PROVENTIL) 09-09- Inhalation i ty of 2.5 mg /3 14:00: 13:13 , ONCE, 1 [place] mL (0.083 00 :00 dose, On Medica l %) [facility] nebulizer 09/09/22 at solution 5 0800, CT mg predniSONE 2022-0 2023- No [id number] Take 3 [facility] 10 mg -08-21 06 tablets by ity of tablet 00:00: 05:59 mouth [place] 00 :00 daily for Medical 3 days, Branch THEN 2 tablets daily for 3 days, THEN 1 tablet daily for 3 days. predniSONE 2022-0 2022- No [id number] Take 3 [facility] 10 mg -08-21 06 tablets by ity of tablet 00:00: 05:59 mouth [place] 00 :00 daily for Medical 3 days, Branch THEN 2 tablets daily for 3 days, THEN 1 tablet daily for 3 days. montelukast 0 Yes 10mg Take 10 mg [...] Medica l base)/3 mL needed for [facility] nebulizer Wheezing. solution dulaglutide 0 Yes Trulicity [...] mouth ity of tablet 17:04: in the [place] [address] morning. Medical Branch Levothyroxi 2022-0 Yes 50ug Take 50 Uni vers ne 100 mcg 1-16 mcg by ity of capsule 17:04: mouth. [place] [address] Medical Branch famotidine 2022-0 Yes 40mg Take 40 mg U nivers 40 mg 1-16 by mouth ity of tablet 17:04: in the [place] [address] morning. Medical Branch magnesium 0 Yes 500mg Take 500 Uni vers gluconate 1-16 mg by ity of (MAG-G 17:04: mouth at [facility]) 37 bedtime. Medical Branch montelukast 0 Yes 10mg Take 10 mg Univers 10 mg 1-16 by mouth. ity of tablet 17:04: [place] [address] Medical Branch HYDROcodone 0 Yes 1{tbl} Take [...] Medica l base)/3 mL needed for [facility] nebulizer Wheezing. solution dulaglutide 2022-0 Yes Trulicity [...] mouth ity of tablet 17:04: in the [place] [address] morning. Medical Branch Levothyroxi 0 Yes 50ug Take 50 Uni vers ne 100 mcg 1-16 mcg by ity of capsule 17:04: mouth. [place] [address] Medical Branch famotidine 0 Yes 40mg Take 40 mg U nivers 40 mg 1-16 by mouth ity of tablet 17:04: in the [place] [address] morning. Medical Branch magnesium 0 Yes 500mg Take 500 Uni vers gluconate 1-16 mg by ity of (MAG-G 17:04: mouth at [facility]) 37 bedtime. Medical Branch montelukast 0 Yes 10mg Take 10 mg Univers 10 mg 1-16 by mouth. ity of tablet 17:04: [place] [address] Medical Branch HYDROcodone 0 Yes 1{tbl} Take [...] Medica l base)/3 mL needed for [facility] nebulizer Wheezing. solution dulaglutide 2022-0 Yes Trulicity [...] Take 25 mg Univers one 25 mg -16 by mouth ity of tablet 17:04: in the [place] [address] morning. Medical Branch Levothyroxi 0 Yes 50ug Take 50 Uni vers ne 100 mcg 1-16 mcg by ity of capsule 17:04: mouth. [place] [address] Medical Branch famotidine 0 Yes 40mg Take 40 mg U nivers 40 mg 1-16 by mouth ity of tablet 17:04: in the [place] [address] morning. Medical Branch magnesium Yes 500mg Take 500 Uni vers gluconate 1-16 mg by ity of (MAG-G 17:04: mouth at [facility]) 37 bedtime. Medical Branch ondansetron 2022-0 3- No 8mg [...] Nausea and Vomiting (N/V) hydrOXYzine 2022-0 Yes [id number] 10mg Take 1 [facility] 10 mg -16 06 tablet by ity of tablet 00:00: mouth [place] 00 every 8 Medical (eight) Branch hours as needed for Anxiety. pregabalin 2023-0 Yes [id number] 300mg Take 1 [facility] 300 mg 1-16 06 capsule by ity of capsule 00:00: mouth in [place] 00 the Medical morning Branch and 1 capsule in the evening. hydrOXYzine 2023-0 Yes [id number] 10mg Take 1 [facility] 10 mg 1-16 06 tablet by ity of tablet 00:00: mouth [place] 00 every 8 Medical (eight) Branch hours as needed for Anxiety. pregabalin 2023-0 Yes [id number] 300mg Take 1 [facility] 300 mg 1-16 06 capsule by ity of capsule 00:00: mouth in [place] 00 the Medical morning Branch and 1 capsule in the evening. hydrOXYzine 2023-0 Yes [id number] 10mg Take 1 [facility] 10 mg 1-16 06 tablet by ity of tablet 00:00: mouth [place] 00 every 8 Medical (eight) Branch hours as needed for Anxiety. pregabalin 2023-0 Yes [id number] 300mg Take 1 [facility] 300 mg 1-16 06 capsule by ity of capsule 00:00: mouth in [place] 00 the Medical morning Branch and 1 capsule in the evening. hydrOXYzine 2023-0 Yes [id number] 10mg Take 1 [facility] 10 mg 1-16 06 tablet by ity of tablet 00:00: mouth [place] 00 every 8 Medical (eight) Branch hours as needed for Anxiety. hydrOXYzine 2023-0 Yes [id number] 10mg Take 1 [facility] 10 mg 1-16 06 tablet by ity of tablet 00:00: mouth [place] 00 every 8 Medical (eight) Branch hours as needed for Anxiety. hydrOXYzine 2023-0 Yes [id number] 10mg Take 1 [facility] 10 mg 1-16 06 tablet by ity of tablet 00:00: mouth [place] 00 every 8 Medical (eight) Branch hours as needed for Anxiety. hydrOXYzine 2023-0 2023- No [id number] 10mg Take 1 [facility] 10 mg 1-16 05-19 06 tablet by ity of tablet 00:00: 00:00 mouth [place] 00 :00 every 8 Medical (eight) Branch hours as needed for Anxiety. pregabalin 2023-0 2023- No [id number] 300mg Take 1 Univers 300 mg 1-16 [...] Until Discontinu ed, Routine sulfur 2022- No [id number] 5mL 5 mL, Unive rs hexafluorid 08-07 Intravenou i ty of e microsphr 17:00: 17:00 s, ONCE, 1 [place] (LUMASON) 00 :00 dose, On Medica l injection 5 Wed Branch mL 08/07/22 at 1100, Routine
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 Branch 08/05/22 at 2240, Until Discontinu ed, Routine, Pain (scale 1-3) ceFEPIme 2022- No 1000mg 1,000 mg, U nivers (MAXIPIME) 08-05 IV ity of 1,000 mg in 22:00: 21:59 Piggyback, [place] NaCl 0.9% 00 :00 Q8H [...] 1000mL at 100 Uni vers (NS) IV 08-05-13 mL/hr, IV ity of infusion 16:30: 01:11 [...] Routine Sliding Yes Subcutaneo Univ ers Scale 11 us, [...] 0145, Until Discontinu ed, Routine aspirin 2022-0 2022- No 81mg 81 mg, Univers chewable [...] Until Discontinu ed, Routine iopamidol 2021-07- No [id number] 75mL 75 mL, Univers (ISOVUE 0-19 10-19 [...] 04/28/22 at 2315, STAT amoxicillin 2021-07 Yes [id number] 500mg Take 1 Univers -pot 0-05 tablet by ity of clavulanate 00:00: mouth [place] 500 mg 00 every 12 Medical 500-125 mg (twelve) Branc h tablet hours. amoxicillin 2021-07 Yes [id number] 500mg Take 1 Univers -pot 0-05 tablet by ity of clavulanate 00:00: mouth [place] 500 mg 00 every 12 Medical 500-125 mg (twelve) Branc h tablet hours. amoxicillin 2021-07 Yes [id number] 500mg Take 1 Univers -pot 0-05 tablet by ity of clavulanate 00:00: mouth [place] 500 mg 00 every 12 Medical 500-125 mg (twelve) Branc h tablet hours. amoxicillin 2021-07 Yes [id number] 500mg Take 1 Univers -pot 0-05 tablet by ity of clavulanate 00:00: mouth [place] 500 mg 00 every 12 Medical 500-125 mg (twelve) Branc h tablet hours. amoxicillin 2021-07- No [id number] 500mg Take 1 Univers -pot 0-05 01-16 [...] as Medica l base)/3 mL needed for [facility] nebulizer Wheezing. solution dulaglutide Yes Trulicity U [...] Medica l base)/3 mL needed for [facility] nebulizer Wheezing. solution dulaglutide 0 Yes Trulicity [...] Medica l base)/3 mL needed for [facility] nebulizer Wheezing. solution dulaglutide 0 Yes Trulicity [...] Medica l base)/3 mL needed for [facility] nebulizer Wheezing. solution dulaglutide 0 Yes Trulicity [...] capsule 17:58: mouth. [place] 14 Medical Branch HYDROcodone Yes 1{tbl} Take [...] Medica l base)/3 mL needed for [facility] nebulizer Wheezing. solution dulaglutide Yes Trulicity U [...] mcg by ity of capsule 17:58: mouth. [place] [address] Medical Branch HYDROcodone 0 Yes 1{tbl} Take [...] as Medica l base)/3 mL needed for [facility] nebulizer Wheezing. solution dulaglutide Yes Trulicity U [...] mouth ity of tablet 17:58: in the [place] 14 morning. Medical Branch ondansetron 0 Yes 8mg Take 8 mg U nivers 8 mg 8-05 by mouth ity of disintegrat 17:58: every 8 Compa as ing tablet 14 (eight) Medica l hours as Branch needed for Nausea and Vomiting (N/V). Levothyroxi Yes 50ug Take 50 Uni vers ne 100 mcg 8-05 mcg by ity of capsule 17:58: mouth. [place] [address] Medical Branch semaglutide 0 2022- No inject [...] No 30mg 30 mg, Unive rs (TORADOL) 02-2402 Slow IV ity of injection 09:45: 09:01 Push, [place] 30 mg 00 :00 ONCE, 1 Medical dose, On Wed02/24/22 at 0445, Routine NORepinephr 2021- No [...] time.
lactated 2021- No 1000mL at 999 [facility] ers ringers IV 02-24 mL/hr, ity of infusion 03:15: 02:10 1,000 mL, [place] as 1,000 mL 00 :00 Intravenou Medic al s, ONCE, 1 Branch dose, On [facility] 02/23/22 at 2215, Routine sennosides Yes 8.6mg 8.6 mg, Uni vers (SENOKOT) 02-23 Oral, ity of tablet 8.6 22:45: DAILY, [place] mg 00 First dose Medical on [facility] Branch 02/23/22 at 1745, Until Discontinu ed, Routine simethicone Yes 80mg 80 mg, [facility] ers (GAS RELIEF 02-23 Oral, ity of (SIMETHICON 14:00: PC+HS, [place] E)) 00 First dose Medical chewable on [facility] tablet 80 02/23/22 at mg 0900, Until Discontinu ed, Routine metoprolol 2021- No 25mg 25 mg, [facility] ers succinate 02-23 Oral, BID, ity of XL (TOPROL 13:00: 03:28 First dose [place] XL) tablet 00 :19 on [facility] Medical 25 mg 02/23/22 at Branch 0800, Until Discontinu ed, Routine melatonin 2021- No 6mg 6 mg, Univer s (MELATIN) 02-23 Oral, ONCE ity of tablet 6 mg 08:15: 07:18 NOW, 1 [place] as 00 :00 dose, On Medical [facility] 02/23/22 Branch at 0315, Routine hydrOXYzine 2021- No 10mg 10 mg, Uni vers (ATARAX) 02-23 Oral, ity of tablet 10 01:58: 03:43 Q8HPRN, [place] mg 32 :01 Starting Medical on [facility] 02/22/22 at 2058, Until [facility] 02/23/22 at 2243, Routine, Anxiety ondansetron 2021- No 4mg 4 mg, Slow Univers (ZOFRAN 02-23 IV Push, ity of (PF)) 00:15: 00:39 ONCE, On [place] injection 4 00 :00 [facility] mg [...] as mg 22 :05 Starting Medical on [place] Branch 02/22/22 at 1714, Until Wed02/24/22 at 0444, Routine, Anxiety pregabalin Yes 300mg 300 mg, Uni vers (LYRICA) 02-22 Oral, BID, ity o f capsule 300 19:30: First dose [place] mg 00 (after Medical last Branch modificati on) on [place] 02/22/22 at 1430, Until Discontinu ed, Routine trimethoben Yes 200mg 200 mg, Un alexia zamide 02-22 Intramuscu ity of (TIGAN) 17:45: lar, [place] injection 43 Q6HPRN, Medical 200 mg Starting Branch on [place] 02/22/22 at 1245, Until Discontinu ed, Routine, Nausea and Vomiting (N/V) levoFLOXaci 2021- No 750mg 750 mg, U nivers n 02-22 Oral, Q24H ity of (LEVAQUIN) 17:45: 18:17 ABX, 3 [place] tablet 750 00 :00 doses, Medical mg First dose Branch on [place] 02/22/22 at 1245, Last dose on Wed02/24/22 [...] on Sun Branch 02/22/22 at 0935, Until 02/25/22 at 0319, Routine, Pain (scale 1-3) ceFEPIme No 2000mg 2,000 mg, U nivers (MAXIPIME) 02-22 IV ity of 2,000 mg in 13:15: 14:10 Piggyback, [place] NaCl 0.9% 00 :00 ONCE, 1 Medical (NS) 50 mL dose, On Bran h MINI-BAG [place] 02/22/22 at 0815, Administer over 30 Minutes, [...] [place] mg 00 First dose Medical on [facility] 02/21/22 at 0900, Until Discontinu ed, Routine aspirin Yes 81mg 81 mg, Univers chewable 02-21 Oral, ity of tablet 81 14:00: DAILY, [place] mg 00 First dose Medical on [facility] 02/21/22 at 0900, Until Discontinu ed, Routine spironolact 2021- No 25mg 25 mg, Uni vers one 02-21 Oral, ity of (ALDACTONE) 14:00: 03:59 DAILY, Compa as tablet 25 00 :42 First dose Medi michel mg on [facility] 02/21/22 at 0900, Until Discontinu ed, Routine furosemide No 40mg 40 mg, Univ ers (LASIX) 02-2102 Oral, ity of tablet 40 14:00: 03:28 DAILY, [place] mg 00 :19 First dose Medical on [facility] 02/21/22 at 0900, Until Discontinu ed, Routine predniSONE No 40mg 40 mg, Univ ers (DELTASONE) 02-21 07 Oral, ity of tablet 40 14:00: 13:46 DAILY, [place] mg 00 :51 First dose Medical on [facility] 02/21/22 at 0900, Until Discontinu ed, Routine HYDROcodone 2021- No 1{tbl} 1 tablet, Univers -acetaminop 02-21 Oral, ity of hen (NORCO 12:00: 11:09 ONCE, 1 Compa as 5) 5-325 mg 00 :00 dose, On Medi michel tablet 1 [facility] tablet 02/21/22 at 0700, Routine albuterol Yes 2.5mg 2.5 mg, Univ ers (PROVENTIL) 02-21 Inhalation it y of 2.5 mg /3 03:00: , Q8H, [place] mL (0.083 00 First dose Medi michel %) on [facility] nebulizer 02/20/22 at solution 2200, 2.5 mg Until Discontinu ed, Routine QUEtiapine Yes 50mg 50 mg, Unive rs (SEROQUEL) 7-30 Oral, QHS, ity of tablet 50 02:30: [...] 300mg 300 mg, Un alexia (LYRICA) 02-21 Oral, QHS, ity of capsule 300 02:00: [...] by ity of tablet 00:00: mouth in [place] [address] the Medical morning. Branch furosemide 2021-0 Yes 40mg Take 1 Unive rs 40 mg 7-27 tablet by ity of tablet 00:00: mouth in [place] [address] the Medical morning. Branch furosemide 2021-0 Yes 40mg Take 1 Unive rs 40 mg 7-27 tablet by ity of tablet 00:00: mouth in [place] [address] the Medical morning. Branch furosemide 2021-0 Yes 40mg Take 1 Unive rs 40 mg 7-27 tablet by ity of tablet 00:00: mouth in [place] [address] the Medical morning. Branch furosemide 2021-0 Yes 40mg Take 1 Unive rs 40 mg 7-27 tablet by ity of tablet 00:00: mouth in [place] 00 the Medical morning. Branch furosemide 2022-0 [...] Medica l base)/3 mL needed for [facility] nebulizer Wheezing. solution semaglutide Yes inject Univ ers (OZEMPIC) 7-26 under the ity o f 0.25 mg or 18:10: skin. [place] 0.5 mg(2 37 Medical mg/1.5 mL) Branch PnIj dulaglutide 0 Yes Trulicity U nivers (TRULICITY) 7-26 3 mg/0.5 ity of 3 mg/0.5 mL 18:10: mL [place] PnIj 37 subcutaneo Medical pen Branch injector metFORMIN 2021-0 Yes 750mg Take 750 Uni vers 500 mg 24 7-26 mg by ity of hr tablet 18:10: mouth [place] 37 daily with Medical breakfast. Branch spironolact 0 Yes 25mg Take 25 mg Univers one 25 mg 7-26 by mouth ity of tablet 18:10: in the [place] [address] morning Medical and 25 mg Branch at [...] mouth 3 ity of tablet 18:10: (three) [place] 37 times Medical daily. Branch LORazepam 0 Yes .5mg Take 0.5 Univ ers 0.5 mg 7-26 mg by ity of tablet 18:10: mouth 2 [place] 37 (two) Medical times Branch daily as needed. ipratropium 0 Yes 1{ampul 1 Ampule Univers -albuterol 7-26 e} every 4 ity of 0.5 mg-3 18:10: (four) [place] mg(2.5 mg 37 hours as Medica l base)/3 mL needed for [facility] nebulizer Wheezing. solution semaglutide 0 Yes inject Univ ers (OZEMPIC) 02-17 under the ity o f 0.25 mg or 18:10: skin. [place] 0.5 mg(2 37 Medical mg/1.5 mL) Branch PnIj dulaglutide 2021-0 Yes Trulicity U nivers (TRULICITY) -26 3 mg/0.5 ity of 3 mg/0.5 mL [...] mouth ity of tablet 18:10: in the [place] [address] morning Medical and 25 mg Branch at [...] ity of 2,000 mg in 03:30: Piggyback, [place] NaCl 0.9% 00 Q12H ABX, Medic al (NS) 50 mL First dose [facility] piggyback on Wed02/16/22 at 2230, Until Discontinu [...] ity of 2,000 mg in 15:30: 15:30 [place], [place] NaCl 0.9% 00 :00 ONCE, 1 Medical (NS) 50 mL dose, On Branc h piggyback [facility] 02/16/22 at 1030, Administer over 30 Minutes, 50 mL
Reas on for Anti-Infec tive: Documented Infection< br>Documen alden Infection Site: Respirator y
Du ration of Therapy: 7 days lidocaine 2021- No 5mL 5 mL, Univer s 1% (PF) 02-16 Subcutaneo ity o f (XYLOCAINE) 14:45: 22:45 us, ONCE, [place] injection 5 00 :00 1 dose, On Me dical mL [facility] 02/16/22 at 0945, Routine NaCl 0.9% Yes 10mL 10 mL, Univer s (NS) 02-16 Slow IV ity of injection 14:36: Push, PRN, [place] 10 mL 37 Starting Medical on Mon Branch 02/16/22 at 0936, Until Discontinu ed, Routine, line maintenanc e furosemide 2021- No 40mg 40 mg, Univ ers (LASIX) 02-16- Oral, BID, ity o f tablet 40 01:00: 12:21 First dose [place] mg 00 :21 on [place] Medical 02/15/22 at Branch 2000, Until Discontinu ed, Routine insulin Yes 24U 24 Units, Unive rs glargine 02-15 Subcutaneo ity o f (LANTUS 16:53: us, Q24H, [place] U-100) 00 First dose Medical injection (after Branch 24 Units last modificati on) on [place] 02/15/22 at 1153, Until Discontinu ed, Routine insulin Yes 5U 5 Units, Univer s lispro 02-14 Subcutaneo ity of (human) 22:00: us, TID [place] (HumaLOG 00 MEALS, Medical U-100) First dose [...] 4.5g 4.5 g, IV Univers n-tazobacta 02-13 07-25 Piggyback, i ty of m (ZOSYN) 23:30: [...] No at 30 Univer s IV infusion 02-13-22 mL/hr, IV it y of 17:55: 22:35 Infusion, [place] 58 :45 TITRATE, Medical Starting Branch on Wed02/13/22 at 1255, Until Wed02/13/22 at 1735, Routine Sliding 2021-0 2021- No Subcutaneo Uni vers Scale 02-13 07-23 us, Q4H, ity of Insulin - 17:00: 17:59 First dose [place] lispro 00 :02 on Wed Medical (humaLOG) + 02/13/22 at Br anch Fsbg 1200, Testing Until Discontinu ed, Routine metoprolol 0 Yes [...] Discontinu ed, Routine, Pain (scale 1-3) acetylcyste 0 2021- No 1mL 200 mg (1 Univers [...] First dose [place] mg 00 on [facility] Medical 02/12/22 at Branch 2100, Until Discontinu ed, Routine rosuvastati 2021-0 Yes 10mg 10 mg, Univ ers n (CRESTOR) 02-13 Oral, QHS, it y of tablet 10 02:00: First dose [place] mg 00 on [facility] Medical 02/12/22 at Branch 2100, Until [...] Nausea and Vomiting (N/V) D5W 0.45% 2021- IV Univers NaCl 02-12 Infusion, ity of [...] of 1,000 mg in 09:15: 14:35 Piggyback, [place] NaCl 0.9% 00 :41 Q24H ABX, Medic [...] (0.083 01 Starting Medica l %) on [facility] Branch nebulizer 02/12/22 at solution 0345, 2.5 mg Until Discontinu ed, Routine, Shortness of Breath, Wheezing NaCl 0.45% 2021- No 1000mL Univ ers (1/2NS) 02-12 ity of 1000 mL + 08:15: 22:29 [place] KCL 20 mEq 00 :30 [facility] Branch azithromyci 2021- No 500mg 500 mg, IV Univers n 02-12 Piggyback, ity of (ZITHROMAX) 08:09: 14:35 Q24H ABX, [place] 500 mg in 00 :41 First dose Medi michel NaCl 0.9% on [facility] Branch (NS) 250 mL 02/12/22 at [...] al injection dose, On Branch 10 Units [facility] 02/11/22 at 2215, STAT iopamidol 2021- No [id number] 60mL 60 mL, Univers (ISOVUE 02-12 Intravenou ity o f 370-500 mL) 02:30: 02:30 s, ONCE, 1 [place] injection 00 :00 dose, On Medica l 60 mL [facility] 02/11/22 at 2145, Routine predniSONE Yes [id number] 50mg Take 1 Univers 50 mg 7-10 00 tablet by ity of tablet 00:00: mouth [place] 00 daily. [facility] Branch aspirin 81 Yes [id number] 81mg Take 1 Univers mg chewable 7-10 00 tablet by ity of tablet 00:00: mouth [place] 00 daily with Medical breakfast. Branch predniSONE Yes [id number] 50mg Take 1 Univers 50 mg 7-10 00 tablet by ity of tablet 00:00: mouth [place] 00 daily. [facility] Branch aspirin 81 Yes [id number] 81mg Take 1 Univers mg chewable 7-10 00 tablet by ity of tablet 00:00: mouth [place] 00 daily with Medical breakfast. Branch aspirin 81 Yes [id number] 81mg Take 1 Univers mg chewable 7-10 00 tablet by ity of tablet 00:00: mouth [place] 00 daily with Medical breakfast. Branch aspirin 81 0 Yes [id number] 81mg Take 1 Univers mg chewable 7-10 00 tablet by ity of tablet 00:00: mouth [place] 00 daily with Medical breakfast. Branch aspirin 81 Yes [id number] 81mg Take 1 Univers mg chewable 7-10 00 tablet by ity of tablet 00:00: mouth [place] 00 daily with Medical breakfast. Branch aspirin 81 Yes [id number] 81mg Take 1 Univers mg chewable 7-10 00 tablet by ity of tablet 00:00: mouth [place] 00 daily with Medical breakfast. Branch aspirin 81 2021-0 Yes [id number] 81mg Take 1 Univers mg chewable 7-10 00 tablet by ity of tablet 00:00: mouth [place] 00 daily with Medical breakfast. Branch aspirin 81 2021-0 Yes [id number] 81mg Take 1 Univers mg chewable 7-10 00 tablet by ity of tablet 00:00: mouth [place] 00 daily with Medical breakfast. Branch aspirin 81 2021-0 Yes [id number] 81mg Take 1 Univers mg chewable 7-10 00 tablet by ity of tablet 00:00: mouth [place] 00 daily with Medical breakfast. Branch aspirin 81 2021-0 Yes [id number] 81mg Take 1 Univers mg chewable 7-10 00 tablet by ity of tablet 00:00: mouth [place] 00 daily with Medical breakfast. Branch aspirin 81 2021-0 Yes [id number] 81mg Take 1 Univers mg chewable 7-10 00 tablet by ity of tablet 00:00: mouth [place] 00 daily with Medical breakfast. Branch aspirin 81 2021-0 Yes [id number] 81mg Take 1 Univers mg chewable 7-10 00 tablet by ity of tablet 00:00: mouth [place] 00 daily with Medical breakfast. Branch aspirin 81 2021-0 Yes [id number] 81mg Take 1 Univers mg chewable 7-10 00 tablet by ity of tablet 00:00: mouth [place] 00 daily with Medical breakfast. Branch aspirin 81 2021-0 Yes [id number] 81mg Take 1 Univers mg chewable 7-10 00 tablet by ity of tablet 00:00: mouth [place] 00 daily with Medical breakfast. Branch aspirin 81 2021-0 Yes [id number] 81mg Take 1 Univers mg chewable 7-10 00 tablet by ity of tablet 00:00: mouth [place] 00 daily with Medical breakfast. Branch aspirin 81 2021-0 Yes [id number] 81mg Take 1 Univers mg chewable 7-10 00 tablet by ity of tablet 00:00: mouth [place] 00 daily with Medical breakfast. Branch aspirin 81 2021-0 Yes [id number] 81mg Take 1 Univers mg chewable 7-10 00 tablet by ity of tablet 00:00: mouth [place] 00 daily with Medical breakfast. Branch aspirin 81 Yes [id number] 81mg Take 1 Univers mg chewable 02-01 tablet by ity of tablet 00:00: mouth [place] 00 daily with Medical breakfast. Branch predniSONE 2021- No [id number] 50mg Take 1 Univers 50 mg 02-01 tablet by ity of tablet 00:00: 00:00 mouth [place] 00 :00 daily. Medical Branch aspirin 81 2021- No [id number] 81mg Take 1 Univers mg chewable 02-01 tablet by it y of tablet 00:00: 00:00 mouth [place] 00 :00 daily with Medical breakfast. Branch predniSONE 2021- No [id number] 50mg Take 1 Univers 50 mg 02-01 [...] .5mg Take 0.5 Univ ers 0.5 mg -09 mg by ity of tablet 13:56: mouth 2 [place] 12 (two) Medical times Branch daily as needed. ipratropium Yes 1{ampul 1 Ampule Univers -albuterol 01-31 e} every 4 ity of 0.5 mg-3 13:56: (four) [place] mg(2.5 mg 12 hours as Medica l base)/3 mL needed for [facility] nebulizer Wheezing. solution semaglutide 2022-0 Yes inject Univ ers (OZEMPIC) 7-09 under [...] as Medica l base)/3 mL needed for [facility] nebulizer Wheezing. solution semaglutide Yes inject Univ [...] breakfast. Branch Potassium 2021- No Take by [facility] ers Gluconate 01-31 mouth ity of 595 mg (99 11:48: 00:00 weekly. Compa as mg) Tab 08 :00 Medical Branch spironolact 2021- No 25mg Take 25 mg Univers one 25 mg 01-31 by mouth 2 ity of tablet 11:48: 00:00 (two) [place] 08 :00 times Medical daily. Branch LORazepam 2021- No .5mg 0.5 mg, [facility] [facility] (ATIVAN) 01-31 Oral, ity of tablet 0.5 02:45: 01:48 ONCE, 1 [place] mg 00 :00 dose, On Medical 01/30/22 Branch at 2145, Routine furosemide Yes 40mg 40 mg, [facility] ([facility] 01-31 Oral, BID, ity of tablet 40 01:00: First dose [place] mg 00 on Fri Medical 01/30/22 at Branch 2000, Until Discontinu ed, Routine metoprolol Yes [id number] 25mg Take 1 Univers succinate 01-31 tablet by ity o f XL 25 mg 24 00:00: mouth 2 [place] hr tablet 00 (two) Medical times Branch daily. metoprolol 0 Yes [id number] 25mg Take 1 Univers succinate 01-31 tablet by ity o f XL 25 mg 24 00:00: mouth 2 [place] hr tablet 00 (two) Medical times Branch daily. metoprolol 2021-0 Yes [id number] 25mg Take 1 [facility] succinate 01-31 tablet by ity o f XL 25 mg 24 00:00: mouth 2 [place] hr tablet 00 (two) Medical times Branch daily. metoprolol 2021-0 Yes [id number] 25mg Take 1 Univers succinate 01-31 tablet by ity o f XL 25 mg 24 00:00: mouth 2 [place] hr tablet 00 (two) Medical times Branch daily. furosemide 2021-2021- No [id number] 40mg Take 1 [facility] 40 mg 01-31 00 tablet by ity of tablet 00:00: 04:59 mouth 2 [place] 00 :00 (two) Medical times Branch daily for 30 days. furosemide 2021- No [id number] 40mg Take 1 Univers 40 mg 01-31 tablet by ity of tablet 00:00: 04:59 mouth 2 [place] 00 :00 (two) Medical times Branch daily for 30 days. metoprolol 2021- No [id number] 25mg Take 1 [facility] succinate 01-31 00 tablet by ity of XL 25 mg 24 00:00: 00:00 mouth 2 [place] hr tablet 00 :00 (two) Medical times Branch daily. furosemide 2021- No [id number] 40mg Take 1 Univers 40 mg 01-31 tablet by ity of tablet 00:00: 00:00 mouth 2 [place] 00 :00 (two) Medical times Branch daily for 30 days. metoprolol 2021- No [id number] 25mg Take 1 [facility] succinate 01-31 tablet by ity of XL 25 mg 24 00:00: 00:00 mouth 2 [place] hr tablet 00 :00 (two) Medical times Branch daily for 30 days. acetaminoph Yes 650mg 650 mg, Un alexia en 01-30 Oral, ity of (TYLENOL) 19:27: Q6HP, [place] tablet 650 59 Starting Medic al [...] First dose Bra nch MINI-BAG on [place] 01/29/22 at 0215, Until Discontinu ed, Administer over 4 Hours, 50 mL
Reas on for Anti-Infec tive: Documented Infection< br>Documen alden Infection Site: Respirator y
Durat ion of Therapy: 7 days sodium 2021-0 Yes 4mL 4 mL, Univers chloride 7% 01-29 Inhalation it y of (HYPER-BLESSING) 01:00: , BID, [place] nebulizer 00 First dose Medi michel solution 4 on Wed Branch mL 01/28/22 at 2000, Until Discontinu ed, Routine ceFEPIme 2021-0 202- No 2000mg 2,000 mg, U nivers (MAXIPIME) 01-28 07-07 IV ity of 2,000 mg in 23:45: 01:18 Piggyback, [place] NaCl 0.9% 00 :00 ONCE, 1 Medical (NS) 50 mL dose, On [facility] h MINI-BAG 01/28/22 at 1845, Administer over [...]
Do Not Refrigerat e.
sulfur 2021-2021- No [id number] 5mL 5 mL, Univ ers hexafluorid 01-28- Intravenou i ty of e microsphr 15:45: 15:45 s, ONCE, 1 [place] (LUMASON) 00 :00 dose, On Medica l injection 5 Wed01/28/22 Br anch mL at 1045, Routine
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 Restricted medication : BRYANT STELLA enoxaparin Yes 40mg 40 mg, Unive rs [...] at 0900, Until Discontinu ed, Routine insulin 2021-0 Yes 60U 60 Units, Unive rs glargine 01-28 Subcutaneo ity o f (LANTUS 14:00: [place], DAILY, [place] U-100) 00 First dose Medical injection on Wed Branch 60 Units 01/28/22 at 0900, Until Discontinu ed, Routine magnesium 2021-0 Yes 400mg 400 mg, Univ ers oxide 01-28 Oral, BID, ity of (MAG-OX 13:00: [place] dose [place] 400) tablet 00 on Wed Medica l 400 mg 01/28/22 at Branch 0800, Until Discontinu ed, Routine Sliding 2021-0 Yes Subcutaneo Univ ers Scale 01-28 us, TIDAC, ity of Insulin-Reg 12:30: First dose [place] ular + Fsbg 00 on Wed Medica l Testing 01/28/22 at Branch 0730, Until Discontinu ed, Routine levothyroxi 0 Yes 50ug 50 mcg, Uni vers ne [...] First dose [place] mg 00 on Wed [facility] 01/28/22 at Branch 0215, Until Discontinu ed, Routine pregabalin 2021-0 Yes 200mg 200 mg, Uni vers (LYRICA) 01-28 Oral, BID, ity o f capsule 200 07:15: First dose [place] mg 00 on Wed [facility] 01/28/22 at Branch 0215, Until Discontinu ed, Routine ondansetron 2021-0 Yes 4mg 4 mg, Slow Univers (ZOFRAN 01-28 IV Push, ity of (PF)) 07:04: Q6HPRN, [place] injection 4 34 Starting Medi michel mg on Wed [place] 01/28/22 at 0204, Until Discontinu ed, Routine, Nausea and Vomiting (N/V) glucagon 2021-0 Yes 1mg 1 mg, Univers (GLUCAGEN 01-28 Intramuscu ity of DIAGNOSTIC 07:03: lar, PRN, [place] KIT) 14 Starting Medical injection 1 on Wed [facility] 01/28/22 at 0203, Until Discontinu ed, CT, [...] s mg 47 Starting Medical on Wed [place] 01/28/22 at 0201, Until Discontinu ed, Routine, Anxiety famotidine 2021-0 Yes 20mg 20 mg, Unive rs (PEPCID AC) 01-28 Oral, BID, it y of tablet 20 07:00: First dose [place] mg 00 on Wed [facility] 01/28/22 at Branch 0200, Until Discontinu ed, Routine QUEtiapine 2021-0 Yes 100mg 100 mg, Uni vers (SEROQUEL) 01-28 Oral, QHS, ity of tablet 100 07:00: First dose [place] mg 00 on Wed Medical 01/28/22 at Branch 0200, Until Discontinu ed, Routine metoprolol Yes 25mg 25 mg, [facility] rs succinate 01-28 Oral, BID, ity of XL (TOPROL 07:00: First dose [place] XL) tablet 00 on Wed Medical 25 mg 01/28/22 at Branch 0200, Until Discontinu ed, Routine ipratropium 2021- No 3mL 3 mL, [facility] ers -albuteroL 01-28 07-06 Inhalation it y of (DUONEB) 07:00: 20:55 , QID, [place] 0.5 mg-3 00 :07 First dose Medic al mg(2.5 mg on Wed base)/3 mL 01/28/22 at nebulizer 0200, solution 3 Until mL Discontinu ed, Routine cyclobenzap Yes 10mg 10 mg, [facility] ers rine 01-28 Oral, ity [...] On Wed01/27/22 Branch at 2130, STAT ondansetron 0 2021- No 4mg 4 mg, Slow Univers (ZOFRAN 01-28 07-06 IV Push, ity of (PF)) 02:30: 02:23 ONCE, 1 [place] injection 4 00 :00 dose, On Medi michel mg 01/27/22 Branch at 2130, CT HYDROcodone 2021-0 Yes 1{tbl} Take 1 Un [...] as Medica l base)/3 mL needed for [facility] nebulizer Wheezing. solution spironolact 0 Yes 25mg [...] Branch tablet 01/12/22 at 2100, Routine ibuprofen No 600mg 600 mg, Uni vers (IBU) 01-13 Oral, ity of tablet 600 00:15: 23:14 ONCE, 1 [place] mg 00 :00 dose, On Medical [facility] Branch 01/12/22 at 1915, CT cyclobenzap Yes [...] Potassium Yes Take by Unive rs Gluconate -20 mouth ity of 595 mg (99 14:06: weekly. [place] mg) Tab 48 Medical Branch ipratropium Yes 1{ampul 1 Ampule Univers -albuterol 6-20 e} every 4 ity of 0.5 mg-3 14:06: (four) [place] mg(2.5 mg 48 hours as Medica l base)/3 mL needed for [facility] nebulizer Wheezing. solution spironolact Yes 25mg Take [...] Medica l base)/3 mL needed for [facility] nebulizer Wheezing. solution spironolact Yes 25mg Take [...] Medica l base)/3 mL needed for [facility] nebulizer Wheezing. solution spironolact Yes 25mg Take [...] Branch hours as needed. ALPRAZolam 2021-0 Yes [id number] .5mg Take 1 Univers 0.5 mg 6-20 tablet by ity of tablet 00:00: mouth 3 [place] 00 (three) Medical times Branch daily. ALPRAZolam 2021-0 Yes [id number] .5mg Take 1 Univers 0.5 mg 6-20 tablet by ity of tablet 00:00: mouth 3 [place] 00 (three) Medical times Branch daily. ALPRAZolam 2021-0 Yes [id number] .5mg Take 1 Univers 0.5 mg 6-20 tablet by ity of tablet 00:00: mouth 3 [place] 00 (three) Medical times Branch daily. ALPRAZolam 2021-0 Yes [id number] .5mg Take 1 Univers 0.5 mg 6-20 tablet by ity of tablet 00:00: mouth 3 [place] 00 (three) Medical times Branch daily. ALPRAZolam 2021-0 2022- No [id number] .5mg Take 1 Univers 0.5 mg 6-20 07-09 tablet by ity of tablet 00:00: 00:00 mouth 3 [place] 00 :00 (three) Medical times Branch daily. ALPRAZolam 2021-0 Yes .5mg 0.5 mg, Univ ers (XANAX) -19 Oral, TID, ity of tablet 0.5 01:30: First dose [place] mg 00 (after Medical last Branch modificati on) on [facility] 01/10/22 at 2030, Until Discontinu ed, Routine ALPRAZolam 2021-0 2021- No .5mg 0.5 mg, Uni vers (XANAX) 01-10 06-19 Oral, TID, ity o f tablet 0.5 21:30: 01:15 First dose [place] mg 00 :25 on [facility] Medical 01/10/22 at Branch 1630, Until Discontinu ed, Routine acetaminoph 2021-0 Yes 650mg 650 mg, Un alexia en 6-17 Oral, ity of (TYLENOL) 22:42: Q6HPRN, [place] [...] Yes 50mg 50 mg, Unive rs (SEROQUEL) 17 Oral, BID, ity of tablet 50 01:00: [...] IV Push, ity of (HALDOL) 17:41: Q4HPRN, [place] injection 2 00 Starting Medi michel mg on Wed Branch 01/07/22 at 1241, Until Discontinu ed, Routine, Agitation furosemide 2021- No 40mg 40 mg, Univ ers (LASIX) 01-07 06-16 Slow IV ity of injection 17:00: 10:59 [...] 40mg 40 mg, Univ ers (LASIX) 01-06 06-15 Slow IV ity of injection 20:45: 15:02 Push, [place] 40 mg 00 :09 DAILY, Medical First dose Branch on Wed01/06/22 at 1545, Until Discontinu ed, Routine ceFEPIme 2021- No 1000mg 1,000 mg, U nivers (MAXIPIME) 01-06 06-15 IV ity of 1,000 mg in 19:00: 22:16 [place], [place] NaCl 0.9% 00 :00 Q8H ABX, [...] 01-06 Oral, ity of sodium 18:45: DAILY, [place] (SENOKOT-S) 00 First dose Me dical 8.6-50 [...] Yes 2mg 2 mg, Slow Univers mg/mL) 6-13 IV Push, ity of injection 2 19:16: Q6HPRN, [place] mg 47 Starting Medical on Mon Branch 01/05/22 at 1416, Until Discontinu ed, Routine, Pain (scale 7-10) potassium 2021- No 20meq 20 mEq, IV Univers chloride 20 01-04 Piggyback, i ty of mEq/100 mL 15:00: 18:20 Q2H, 2 [place] (KCL) 20 00 :00 doses, Medical mEq/100 mL First dose [facility] RTU IVPB 20 on [place] mEq 01/04/22 at 1000, Last dose on [place] 01/04/22 at 1200, 100 mL insulin 2021- No 10U 10 Units, [facility] ers glargine 01-04 Subcutaneo ity of (LANTUS 14:00: 15:09 us, DAILY, [place] U-100) 00 :45 First dose Medical injection (after Branch 10 Units last modificati on) on [place] 01/04/22 at 0900, Until Discontinu ed, Routine metoprolol 2021- No 5mg 5 mg, Slow Univers (LOPRESSOR) 01-04 IV Push, ity of injection 5 13:45: 17:13 BID, First [place] mg 00 :45 dose on Medical [place] Branch 01/04/22 at 0845, Until Discontinu ed, Routine QUEtiapine 2021- No 25mg 25 mg, [facility] ers (SEROQUEL) 01-04 Oral, BID, it y of tablet 25 13:45: 13:55 First dose [place] mg 00 :32 (after Medical last Branch modificati on) on [place] 01/04/22 at 0845, Until Discontinu ed, Routine iopamidol 2021- No [id number] 100mL 100 mL, Univers (ISOVUE 01-04 Intravenou ity o f 370-500 mL) 10:15: 08:55 s, ONCE, 1 [place] injection 00 :00 dose, On Medica l 100 mL [place] Branch 01/04/22 at 0515, Routine propofoL IV No 5ug/kg/ 5-50 Un alexia infusion 01-03 06-13 min mcg/kg/min ity of 21:04: 21:03 ?104.3 kg [place] 20 :20 (3.129-31. Medical 29 mL/hr, Branch [...] ed, Routine insulin No 10U 10 Units, [facility] ers glargine 01-0311 Subcutaneo ity of (LANTUS [...] 1 Medical 100 mcg dose, On Branch 01/02/22 at 1430, Routine meropenem 2021- No 1000mg 1,000 mg, Univers (MERREM) 01-0214 IV ity of 1,000 mg in 19:00: 15:44 Piggyback, [place] NaCl 0.9% 00 :06 Q8H ABX, Medica l (NS) 50 mL First dose Bra nmh MINI-BAG on Wed01/02/22 at 1400, Until Discontinu [...] maximum allowed dose, contact prescriber .
furosemide No 40mg 40 mg, Univ ers (LASIX) 01-0210 Slow IV ity of injection 15:15: 14:43 [...] 250 mL, IV Un alexia 10% (D10W) 01-02 Infusion, ity of bolus 14:10: PRN - [...] No 4mL 800 mg (4 Univers ine - 06-11 mL), ity of (MUCOMYST) 12:30: 19:38 Inhalation [place] 200 mg/mL 00 :09 , Q6H, Medical (20 %) First dose Branch solution on Fri 800 mg 01/02/22 at 0730, Until Discontinu ed, Routine acetylcyste 2021- No 4mL 800 mg (4 Univers ine - 06-10 mL), ity of (MUCOMYST) 12:30: 14:11 Inhalation [...] ity of 1,000 mg in 11:15: 12:44 [place], [place] NaCl 0.9% 00 :00 ONCE, 1 [...] 00 :00 dose, On Medi michel mg Wed01/02/22 at 0400, CT LORazepam 2021- No .5mg [...] :00 dose, On Medica l 100 mL [facility] MINI-BAG 01/02/22 at 0130, Administer over 30 Minutes, 100 mL
Reas on for Anti-Infec tive: Empiric Therapy for Suspected Infection< br>Empiric Therapy Site: Respirator y
Durat ion of therapy: 72 hours azithromyci No 500mg 500 mg, IV Univers n 01-02 [place], ity of (ZITHROMAX) 06:30: 05:42 ONCE, 1 [place] injection 00 :00 dose, On Medica l 500 mg [facility] Branch 01/02/22 at 0130, STAT
Re ason for Anti-Infec tive: Documented Infection< br>Documen alden Infection Site: Respirator y
Durat ion of Therapy: Other (see Comments) ondansetron No 4mg 4 mg, Slow Univers (ZOFRAN 12-09 IV Push, ity of (PF)) 05:45: 04:41 ONCE, 1 [place] injection 4 00 :00 dose, On Medi michel mg [facility] 12/09/21 at 0045, CT morpHINE (4 No 4mg 4 mg, Slow Univers mg/mL) 12-09 IV Push, ity of injection 4 05:45: 04:41 ONCE, 1 [place] mg 00 :00 dose, On Medical [facility] 12/09/21 at 0045, STAT levalbutero No 1.25mg 1.25 mg, Univers l (XOPENEX) 12-09 Inhalation i ty of nebulizer 05:00: 04:22 , ONCE, 1 [place] solution 00 :00 dose, On Medical 1.25 mg [facility] 12/09/21 at 0000, Routine predniSONE 2021- No [id number] 40mg Take 2 Univers 20 mg 3- 03-06 tablets by ity of tablet 00:00: 05:59 mouth [place] 00 :00 daily for Medical 3 days. Branch predniSONE 2021- No [id number] 40mg Take 2 Univers 20 mg 3-02 [...] as Medica l base)/3 mL needed for [facility] nebulizer Wheezing. solution spironolact Yes 25mg Take [...] as Medica l base)/3 mL needed for [facility] nebulizer Wheezing. solution spironolact Yes 25mg Take [...] Medica l base)/3 mL needed for [facility] nebulizer Wheezing. solution spironolact Yes 25mg Take [...] mL [place] PnIj 49 subcutaneo Medical pen [place] injector metFORMIN 0 Yes 750mg Take 750 Uni vers 500 mg 24 3-01 mg by ity of hr tablet 15:03: mouth [place] 49 daily with Medical breakfast. [place] polyethylen Yes 17g 17 g, Unive rs e glycol 09-23 Oral, BID, ity o f 3350 powder 14:15: First dose [place] 17 g 00 on [facility] Medical 09/23/21 at [place] 0815, Until Discontinu ed, Routine proCHLORper 2021- No 5mg 5 mg, IV U nivers azine 09-23 Piggyback, ity of (COMPAZINE) 13:00: 12:33 ONCE, 1 [place] 5 mg in 00 :00 dose, On Medical NaCl 0.9% 09/23/22 Bran ch (NS) at 0700, piggyback 50 [...] 00 :00 dose, On Medi michel mg [facility] 09/23/21 Branch at 0400, Routine ondansetron Yes 4mg 4 mg, Slow Univers (ZOFRAN 09-23 IV Push, ity of (PF)) 04:25: Q6HPRN, [place] injection 4 51 Starting Medi michel mg on Wed Branch 09/22/21 at 2225, Until Discontinu ed, Routine, Nausea and Vomiting (N/V) insulin Yes 60U 60 Units, Unive rs glargine 09-23 Subcutaneo ity o f (LANTUS 03:00: us, Q, [place] U-100) 00 First dose Medical injection on Wed Branch 60 Units 09/22/21 at 2100, Until Discontinu ed, Routine Sliding Yes Subcutaneo Univ ers Scale 3 us, Q4H, ity of Insulin - 02:45: First dose [place] Lispro 00 (after Medical (HumaLOG) + last Branch Fsbg modificati Testing on) on Wed09/22/21 at 2045, Until Discontinu ed, Routine azithromyci 2021- No [id number] 250mg Take 1 Univers n 09-23-06 tablet by ity of (ZITHROMAX 00:00: 05:59 mouth [place] Z-ULYSSES) 250 00 :00 daily for Medi michel mg tablet 4 days. Branch azithromyci 2021- No [id number] 250mg Take 1 Univers n 09-23-06 tablet [...] 2021- No Subcutaneo Uni vers Scale 09-22 03- us, TID ity of Insulin - 23:00: [...] or has mental changes. sulfur 2021- No [id number] 5mL 5 mL, Univ ers hexafluorid 09-22 Intravenou i ty of e microsphr 18:45: 19:00 s, ONCE, 1 [place] (LUMASON) 00 :00 dose, On Medica l injection 5 [facility] mL 09/22/21 at 1300, Routine
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 Restricted medication : MARY GLORIA HYDROcodone Yes 1{tbl} 1 tablet, Univers -acetaminop 09-22 Oral, ity of hen (NORCO) 16:26: Q8HPRN, [place]a as 10-325 mg 26 Starting Medica l tablet 1 on [facility] tablet 09/22/21 at 1026, Until Discontinu ed, Routine, Pain (scale 4-6), Pain (scale 7-10) furosemide Yes 40mg 40 mg, Unive rs (LASIX) 09-22 Oral, ity of tablet 40 15:00: DAILY, [place] mg 00 First dose Medical on [facility] Branch 09/22/21 at 0900, Until Discontinu ed, [...] 00 First dose Medi michel %) on [facility] nebulizer 09/22/21 at solution 0800, [...] [place] ular + Fsbg 00 :38 on [facility] Medica l Testing 09/22/21 at Branch 0730, [...] 28 Starting Medica l 25 mL on [facility] 09/22/21 at 0514, Until Discontinu ed, CT, Blood Glucose < or = 70 mg/dL and patient is unable to swallow or has mental status changes. albuterol 2021- No 2.5mg 2.5 mg, Uni vers (PROVENTIL) 09-22 Inhalation i ty of 2.5 mg /3 07:45: 07:15 , ONCE, 1 [place] mL (0.083 00 :00 dose, On Medica l %) [facility] nebulizer 09/22/21 at solution 0145, CT 2.5 mg furosemide 2021- No 40mg 40 mg, IV U nivers (LASIX) 09-22 Push, ity of injection 07:30: 06:32 ONCE, 1 [place] 40 mg 00 :00 dose, On Medical [facility] 09/22/21 at 0130, CT methylpredn [...] 00 :00 dose, On Medica l %) [facility] nebulizer 09/22/21 at solution 0130, CT 2.5 mg aspirin 2021- No 1{tbl} Take 1 Unive rs (ASPIR-81 09-22-28 tablet by ity of ORAL) 05:21: 00:00 [...] Medical pen Branch injector LORazepam 2020-07 Yes [id number] .5mg Take 1 Un alexia 0.5 mg 2-02 tablet by ity of tablet 00:00: mouth 3 [place] 00 (three) Medical times [place] daily as needed for Nausea and Vomiting (N/V). LORazepam 2020-07 Yes [id number] .5mg Take 1 Un alexia 0.5 mg 2-02 tablet by ity of tablet 00:00: mouth 3 [place] 00 (three) Medical times [place] daily as needed for Nausea and Vomiting (N/V). LORazepam 2020-07- No [id number] .5mg Take 1 U nivers 0.5 mg 2-02 03- tablet by ity of tablet 00:00: 00:00 mouth 3 [place] 00 :00 (three) Medical times [place] daily as needed for Nausea and Vomiting [...] nch nebulizer Wheezing. solution nystatin 2018-07 Yes [id number] Apply to Un alexia 100,000 1-06 area(s) 2 ity of unit/gram 00:00: (two) [place] cream 00 times Medical daily. Branch nystatin 2018-07 Yes [id number] Apply to Un alexia 100,000 1-06 area(s) 2 ity of unit/gram 00:00: (two) [place] cream 00 times Medical daily. Branch nystatin 2018-07- No [id number] Apply to U nivers 100,000 1-06 03-01 [...] QD ity of tablet 00:00: [place] [facility] Branch rosuvastati 2018-07 Yes TK 1 T PO U nivers n 10 mg 0-28 QD ity of tablet 00:00: [place] [facility] rosuvastati 2018-07 Yes TK 1 T PO U nivers n 10 mg 0-28 QD ity of tablet 00:00: [place] [facility] rosuvastati 2018-07 Yes TK 1 T PO U nivers n 10 mg 0-28 QD ity of tablet 00:00: [place] [facility] rosuvastati 2018-07 Yes TK 1 T PO U nivers n 10 mg 0-28 QD ity of tablet 00:00: [place] [facility] rosuvastati 2018-07 Yes TK 1 T PO U nivers n 10 mg 0-28 QD ity of tablet 00:00: [place] [facility] rosuvastati 2018-07 Yes TK 1 T PO U nivers n 10 mg 0-28 QD ity of tablet 00:00: [place] [facility] rosuvastati 2018-07 Yes TK 1 T PO U nivers n 10 mg 0-28 QD ity of tablet 00:00: [place] [facility] rosuvastati 2018-07 Yes TK 1 T PO U nivers n 10 mg 0-28 QD ity of tablet 00:00: [address] rosuvastati 2018-07 Yes TK 1 T PO U nivers n 10 mg 0-28 QD ity of tablet 00:00: [place] [facility] rosuvastati 2018-07 Yes TK 1 T PO U nivers n 10 mg 0-28 QD ity of tablet 00:00: [place] [facility] rosuvastati 2018-07 Yes TK 1 T PO U nivers n 10 mg 0-28 QD ity of tablet 00:00: [place] [facility] rosuvastati 2018-07 Yes TK 1 T PO U nivers n 10 mg 0-28 QD ity of tablet 00:00: [place] [facility] rosuvastati 2018-07 Yes TK 1 T PO U nivers n 10 mg 0-28 QD ity of tablet 00:00: [place] [facility] rosuvastati 2018-07 Yes TK 1 T PO U nivers n 10 mg 0-28 QD ity of tablet 00:00: [address] rosuvastati 2018-07 Yes TK 1 T PO U nivers n 10 mg 0-28 QD ity of tablet 00:00: [address] rosuvastati 2018-07 Yes TK 1 T PO U nivers n 10 mg 0-28 QD ity of tablet 00:00: [address] rosuvastati 2018-07 Yes TK 1 T PO U nivers n 10 mg 0-28 QD ity of tablet 00:00: [place] 00 Medical Branch rosuvastati 2018-07 Yes TK 1 T PO U nivers n 10 mg 0-28 QD ity of tablet 00:00: [place] [facility] rosuvastati 2018-07 Yes TK 1 T PO U nivers n 10 mg 0-28 QD ity of tablet 00:00: [place] [facility] rosuvastati 2018-07 Yes TK 1 T PO U nivers n 10 mg 0-28 QD ity of tablet 00:00: [place] [facility] rosuvastati 2018-07 Yes TK 1 T PO U nivers n 10 mg 0-28 QD ity of tablet 00:00: [place] [facility] rosuvastati 2018-07 Yes TK 1 T PO U nivers n 10 mg 0-28 QD ity of tablet 00:00: [place] [facility] rosuvastati 2018-07 Yes TK 1 T PO U nivers n 10 mg 0-28 QD ity of tablet 00:00: [place] [facility] rosuvastati 2018-07 Yes TK 1 T PO U nivers n 10 mg 0-28 QD ity of tablet 00:00: [place] [facility] rosuvastati 2018-07 Yes TK 1 T PO U nivers n 10 mg 0-28 QD ity of tablet 00:00: [place] [facility] ofloxacin 2018-07 Yes INSTIL 2 Univ ers [...] mg 0-09 ity of tablet 00:00: [place] [facility] furosemide 2018-07 Yes Univers 20 [...] Medical (eight) Branch hours as needed. cyclobenzap 2019 Yes 10mg Take 10 mg Univers rine 5 mg 8-07 by mouth 3 ity of tablet 13:18: (three) [place] 36 times Medical daily. Branch LORazepam 2019- Yes .5mg Take 0.5 Univ ers 0.5 [...] 36 Medical mg/1.5 mL) Branch PnIj fluconazole 2018- Yes [id number] 100mg Take 1 Univers 100 mg 3-26 tablet by ity of tablet 00:00: mouth [place] 00 daily. Medical Branch fluconazole 2019-0 Yes [id number] 100mg Take 1 Univers 100 mg 3-26 tablet by ity of tablet 00:00: mouth [place] 00 daily. [facility] Branch fluconazole 2019-0 Yes [id number] 100mg Take 1 Univers 100 mg 3-26 tablet by ity of tablet 00:00: mouth [place] 00 daily. [facility] Branch fluconazole 2018- Yes [id number] 100mg Take 1 Univers 100 mg 3-26 tablet by ity of tablet 00:00: mouth [place] 00 daily. [facility] Branch fluconazole 2019- Yes [id number] 100mg Take 1 Univers 100 mg 3-26 tablet by ity of tablet 00:00: mouth [place] 00 daily. [facility] Branch fluconazole 2018- Yes [id number] 100mg Take 1 Univers 100 mg 3-26 tablet by ity of tablet 00:00: mouth [place] 00 daily. [facility] Branch fluconazole 2018- Yes [id number] 100mg Take 1 Univers 100 mg 3-26 tablet by ity of tablet 00:00: mouth [place] 00 daily. [facility] Branch fluconazole 2018- Yes [id number] 100mg Take 1 Univers 100 mg 3-26 tablet by ity of tablet 00:00: mouth [place] 00 daily. [facility] Branch fluconazole 2018- Yes [id number] 100mg Take 1 Univers 100 mg 3-26 tablet by ity of tablet 00:00: mouth [place] 00 daily. [facility] fluconazole 2018-2021- No [id number] 100mg Take 1 Univers 100 mg 3-26 [...] TO U nivers E 1 % 0-11 03- THE ity of topical 00:00: 00:00 AFFECTED [...] 00:00: [place] Cap 00 Medical Branch HEMOCYTE-PL 0 Yes Univer s [...] ity of iron- 1 mg 00:00: [place] [facility] Medical Branch paroxetine 2017-0 Yes Univers 40 mg 2-28 ity of tablet 00:00: [place] [facility] paroxetine 2018-0 Yes Univers 40 mg 2-28 ity of tablet 00:00: [place] [facility] paroxetine 2018-0 Yes Univers 40 mg 2-28 ity of tablet 00:00: [place] [address] Medical Branch paroxetine 2018-0 Yes Univers 40 mg 2-28 ity of tablet 00:00: [place] [address] Medical Branch paroxetine 2018-0 Yes Univers 40 mg 2-28 ity of tablet 00:00: [place] [address] Medical Branch paroxetine 2018-0 Yes Univers 40 [...] 40 mg 2-28 ity of tablet 00:00: [place] [address] Medical Branch paroxetine 2018-0 Yes Univers 40 mg 2-28 ity of tablet 00:00: [place] [facility] paroxetine 2018-0 Yes Univers 40 mg 2-28 ity of tablet 00:00: [place] [address] Medical Branch paroxetine 2018-0 Yes Univers 40 mg 2-28 ity of tablet 00:00: [place] [address] Medical Branch paroxetine 2018-0 Yes Univers 40 mg 2-28 ity of tablet 00:00: [place] [address] Medical Branch paroxetine 2018-0 Yes Univers 40 mg 2-28 ity of tablet 00:00: [place] [address] Medical Branch paroxetine 2018-0 Yes Univers 40 mg 2-28 ity of tablet 00:00: [place] [place] [address] [facility] paroxetine 2018-0 Yes Univers 40 mg 2-28 ity of tablet 00:00: [place] [address] [facility] paroxetine 2018-0 Yes Univers 40 mg 2-28 ity of tablet 00:00: [place] [address] [facility] paroxetine 2018-0 Yes Univers 40 mg 2-28 ity of tablet 00:00: [place] [address] [facility] paroxetine 2018-0 Yes Univers 40 mg 2-28 ity of tablet 00:00: [place] [address] [facility] paroxetine 2018-0 Yes Univers 40 mg 2-28 ity of tablet 00:00: [address] Branch paroxetine 2018-0 Yes Univers 40 mg 2-28 ity of tablet 00:00: [address] Branch paroxetine 2018-0 Yes Univers 40 mg 2-28 ity of tablet 00:00: [address] Branch paroxetine 2018-0 Yes Univers 40 mg 2-28 ity of tablet 00:00: [address] Branch paroxetine 2018-0 Yes Univers 40 mg 2-28 ity of tablet 00:00: [place] [address] [facility] paroxetine 2018-0 Yes Univers 40 mg 2-28 ity of tablet 00:00: [place] [address] [facility] LEVEMIR 2018-0 Yes INJECT 5 Univer s FLEXTOUCH 1-09 UNITS SC ity of 100 unit/mL 00:00: QD [place] (3 mL) Medical injection Branch LEVEMIR 2018-0 Yes INJECT 5 Univer s FLEXTOUCH 1-09 UNITS SC ity of 100 unit/mL 00:00: QD [place] (3 mL) Medical injection Branch LEVEMIR 2018-0 Yes INJECT 5 Univer s FLEXTOUCH 1-09 UNITS SC ity of 100 unit/mL 00:00: QD [place] (3 mL) Medical injection Branch LEVEMIR 2018-0 [...] mL) 00 :00 Medical injection Branch sodium 2017- Yes 4mL Inhale 4 Univers chloride 3 1-14 mL 4 ity of % nebulizer 00:00: (four[place] solution 00 times Medical daily. Branch sodium 2017- Yes 4mL Inhale 4 Univers chloride 3 1-14 mL 4 ity of % nebulizer 00:00: (four[place] 00 times Medical daily. Branch sodium 2017- Yes 4mL Inhale 4 [...] as solution 00 :00 times Medical daily. [place] ranitidine 2016- Yes TK 1 T PO Un alexia 300 mg 4-18 BID ity of tablet 00:00: [place] [facility] ranitidine 2016-0 Yes TK 1 T PO Un alexia 300 mg 4-18 BID ity of tablet 00:00: [facility] ranitidine 2016-0 Yes TK 1 T PO Un alexia 300 mg 4-18 BID ity of tablet 00:00: [place] [facility] ranitidine 2016-0 Yes TK 1 T PO Un alexia 300 mg 4-18 BID ity of tablet 00:00: [place] 00 [facility] Branch ranitidine [address] Yes TK 1 T PO Un alexia 300 mg 4-18 BID ity of tablet 00:00: [place] [facility] ranitidine [address] Yes TK 1 T PO Un alexia 300 mg 4-18 BID ity of tablet 00:00: [place] [facility] Branch ranitidine [address]70 Yes TK 1 T PO Un alexia 300 mg 4-18 BID ity of tablet 00:00: [place] [facility] ranitidine [address] Yes TK 1 T PO Un alexia 300 mg 4-18 BID ity of tablet 00:00: [place] [facility] ranitidine 2017 Yes TK 1 T PO Un alexia 300 mg 4-18 BID ity of tablet 00:00: [place] [facility] Branch ranitidine [address] Yes TK 1 T PO Un alexia 300 mg 4-18 BID ity of tablet 00:00: [place] [facility] ranitidine 2017-0 Yes TK 1 T PO Un alexia 300 mg 4-18 BID ity of tablet 00:00: [place] [facility] ranitidine [address] Yes TK 1 T PO Un alexia 300 mg 4-18 BID ity of tablet 00:00: [place] 00 [facility] ranitidine [address] Yes TK 1 T PO Un alexia 300 mg 4-18 BID ity of tablet 00:00: [place] 00 [facility] Branch ranitidine 2017-0 2022- No TK 1 [...] 50mg Take 1 Tab U nivers (SEROQUEL) 9- by mouth ity o f 50 mg 00:00: at [place] tablet 00 bedtime. Medical Branch paroxetine Yes 40mg Take 2 Unive rs (PAXIL) 20 9- Tabs by ity of mg tablet 00:00: mouth [place] 00 daily. Medical Branch paroxetine Yes 40mg Take 2 Unive rs (PAXIL) 20 9- Tabs by ity of mg tablet 00:00: mouth [place] 00 daily. Medical Branch paroxetine 2022- No 40mg Take 2 Univ ers (PAXIL) 20 - 03- Tabs by ity o f mg [...] capsule 00 bedtime. Medical Branch pregabalin 2015-0 2022- No 300mg Take 1 Cap Univers (LYRICA) 6-13 -16 by mouth ity of 300 mg 00:00: 00:00 at [place] capsule 00 :00 bedtime. Medical Branch Vital Signs Vital Name Observation Time Observation Value Comments Source Heart rate 2022-12-10 19:12:00 88 /min Universi ty of [facility] [place] [facility] Respiratory rate 2022-12-10 19:12:00 18 /min [facility] [place] [facility] Oxygen saturation in 2022-12-10 19:12:00 100 /min University of Arterial blood by [employer] michel Pulse oximetry Branch Systolic blood 2022-12-10 17:00:00 96 mm[Hg] Univer sity of [facility] Diastolic blood 2022-12-10 17:00:00 85 mm[Hg] Unive rsity of [facility] Body temperature 2022-12-10 13:00:00 36.28 Laly Univ ersity of [facility] [place] [facility] Body weight 2022-12-09 13:00:00 95 kg Universi ty [facility] BMI 2022-12-09 13:00:00 39.57 kg/m2 Universi ty [facility] Body height 2022-12-07 17:41:00 154.9 cm Universi ty of [facility] [place] [facility] HEIGHT 2022-11-25 03:00:00 154.9 cm WEIGHT 2022-11-25 03:00:00 95.3 kg HEIGHT 2022-11-25 03:00:00 154.9 cm WEIGHT 2022-11-25 03:00:00 95.3 kg HEIGHT 2022-11-25 03:00:00 154.9 cm WEIGHT 2022-11-25 03:00:00 95.3 kg Systolic blood 2022-09-09 14:30:00 105 mm[Hg] Univer sity of [facility] Diastolic blood 2022-09-09 14:30:00 78 mm[Hg] Unive rsity of [facility] Heart rate 2022-09-09 14:30:00 95 /min Universi ty [facility] Body temperature 2022-09-09 14:30:00 37.22 Laly Univ ersity of [facility] [place] [facility] Respiratory rate 2022-09-09 14:30:00 12 /min Univ ersity of [facility] [place] [facility] Oxygen saturation in 2022-09-09 14:30:00 93 /min University of Arterial blood by [facility] Pulse oximetry Branch Body height 2022-09-09 12:41:00 [...] University of Arterial blood by [facility] Pulse oximetry Branch Body weight 2022-08-10 09:00:00 [...] University of Arterial blood by [facility] Pulse oximetry Branch Body temperature 2022-06-05 02:51:00 [...] 07:00:00 84 mm[Hg] Unive rsity of pressure [place] [facility] Heart rate 2022-05-13 07:00:00 90 /min Universi ty of [place] [facility] Respiratory rate 2022-05-13 07:00:00 14 /min Univ ersity of [place] [facility] Oxygen saturation in 2022-05-13 07:00:00 97 /min University of Arterial blood by [place] [employer] michel Pulse oximetry Branch Body temperature 2022-05-13 [...] 2022-05-02 07:00:00 86 /min Universi ty of [place] [facility] Respiratory rate 2022-05-02 07:00:00 17 /min Univ ersity of [place] [facility] Oxygen saturation in 2022-05-02 07:00:00 98 /min University of Arterial blood by [place] [employer] michel Pulse oximetry Branch Body temperature 2022-05-02 05:21:00 36.44 Laly Univ ersity of [place] [facility] Body height 2022-05-02 05:21:00 154.9 cm Universi ty of [place] [facility] Body weight 2022-05-02 05:21:00 95.255 kg Universi ty of [place] [facility] BMI 2022-05-02 05:21:00 39.68 kg/m2 Universi ty of [place] [facility] Systolic blood 2022-04-29 05:36:00 133 mm[Hg] Univer sity of pressure [place] [facility] Diastolic blood 2022-04-29 05:36:00 85 mm[Hg] Unive rsity of pressure [place] [facility] Heart rate 2022-04-29 05:36:00 89 /min Universi ty of [place] [facility] Respiratory rate 2022-04-29 05:36:00 22 /min Univ ersity of [place] [facility] Oxygen saturation in 2022-04-29 05:36:00 100 /min University of Arterial blood by [facility] michel Pulse oximetry Branch Body temperature 2022-04-29 [...] University of Arterial blood by [facility] Pulse oximetry Branch Body weight 2022-02-23 13:00:00 [...] 94 /min University of Arterial blood by [facility] michel Pulse oximetry Branch Systolic blood 2022-02-17 [...] University of Arterial blood by [place] [facility] Pulse oximetry Branch Body weight 2022-01-30 09:00:00 [...] 91 /min University of Arterial blood by [place] Medi michel Pulse oximetry Branch Body temperature [...] /min University of Arterial blood by [place] Medi michel Pulse oximetry Branch Body temperature [...] 96 /min University of Arterial blood by [place] Medi michel Pulse oximetry Branch Body temperature 2021-12-09 03:35:00 35.94 Laly Univ ersity of [place] [facility] Body height 2021-12-09 03:35:00 154.9 cm Universi ty [facility] Body weight 2021-12-09 03:35:00 104.327 kg Universi ty [facility] BMI 2021-12-09 03:35:00 43.46 kg/m2 Universi ty [facility] Systolic blood 2021-09-23 20:00:00 141 mm[Hg] Univer sity of pressure [facility] [place] [facility] Diastolic blood 2021-09-23 20:00:00 83 mm[Hg] Unive rsity [facility] Heart rate 2021-09-23 20:00:00 98 /min Universi ty [facility] Respiratory rate 2021-09-23 20:00:00 16 /min [facility] Oxygen saturation in 2021-09-23 20:00:00 97 /min [facility] Arterial blood by [facility] Pulse oximetry [place] Body temperature 2021-09-23 18:00:00 36.61 Laly [facility] Body height 2021-09-22 21:50:00 154.9 cm Universi ty [facility] Body weight 2021-09-22 21:50:00 104.3 kg Universi [facility] BMI 2021-09-22 21:50:00 43.45 kg/m2 [facility] Systolic blood 2022-11-26 12:00:00 132 mm[Hg] [facility] Diastolic blood 2022-11-26 12:00:00 78 mm[Hg] [facility] Heart rate 2022-11-26 12:00:00 88 /min [facility] Respiratory rate 2022-11-26 12:00:00 12 /min [facility] Oxygen saturation in 2022-11-26 12:00:00 98 /min [facility] Arterial blood by [facility] nter Pulse oximetry Body temperature 2022-11-26 08:00:00 36.61 Laly [facility] Body height 2022-11-25 03:00:00 154.9 cm [facility] Body weight 2022-11-25 03:00:00 95.3 kg [facility] BMI 2022-11-25 03:00:00 39.70 kg/m2 [facility] Procedures Procedure Date / Time Performing Clinician Source Performed EXTERNAL PROVIDER RECORDS 2022-12-22 05:01:00 Doctor Unassigned, [facility] [place] [facility] POCT GLUCOSE (AUTOMATED) 2022-12-10 16:54:00 Lv Liz [facility] POCT GLUCOSE (AUTOMATED) 2022-12-10 12:46:00 Lv Liz [facility] MAGNESIUM 2022-12-10 09:38:00 Lisa Fritz [facility] BASIC METABOLIC PANEL 2022-12-10 09:38:00 [facility] (NA, K, CL, CO2, GLUCOSE, Medica l Branch BUN, CREATININE, CA) CBC WITHOUT DIFF 2022-12-10 09:38:00 [facility] POCT GLUCOSE (AUTOMATED) 2022-12-10 09:37:00 Lv Liz [facility] POCT GLUCOSE (AUTOMATED) 2022-12-10 05:23:00 Lv Liz [facility] XR CHEST 1 VW 2022-12-10 02:23:00 Duane Ireland [facility] POCT GLUCOSE (AUTOMATED) 2022-12-10 01:20:00 Lv Liz [facility] POCT GLUCOSE (AUTOMATED) 2022-12-09 21:01:00 Lv Liz [facility] HB ECG ROUTINE & RHYTHM 2022-12-09 17:31:01 Raina Tyson [facility] STRIP Deepa [facility] POCT GLUCOSE (AUTOMATED) 2022-12-09 17:08:00 Lv Liz [facility] POCT GLUCOSE (AUTOMATED) 2022-12-09 12:57:00 Lv Liz [facility] BASIC METABOLIC PANEL 2022-12-09 09:12[facility] ([facility], K, CL, CO2, GLUCOSE, Medica l Branch BUN, CREATININE, CA) CBC WITHOUT DIFF 2022-12-09 09:12:00 Juvenal [facility] AC PANEL 20 + LACTIC ACID 2022-12-09 09:03:00 Lisa Fritz Richard [facility] POCT GLUCOSE (AUTOMATED) 2022-12-09 04:30:00 Lv Liz [facility] AC PANEL 20 + LACTIC ACID 2022-12-09 03:45:00 Vivek Meneses [facility] POCT GLUCOSE (AUTOMATED) 2022-12-09 00:36:00 Lv Liz [facility] POCT GLUCOSE (AUTOMATED) 2022-12-08 22:07:00 Lv Liz [facility] POCT GLUCOSE (AUTOMATED) 2022-12-08 12:57:00 Lv Liz [facility] CBC WITHOUT DIFF 2022-12-08 11:48:00 Juvenal [facility] LIPASE 2022-12-08 09:46:00 Carmelita Smith [facility] MAGNESIUM 2022-12-08 09:46:00 Vivek Meneses [facility] BASIC METABOLIC PANEL 2022-12-08 09:46:00 Vivek Meneses [facility] (NA, K, CL, CO2, GLUCOSE, Medica l Branch BUN, CREATININE, CA) POCT GLUCOSE (AUTOMATED) 2022-12-08 08:58:00 Lv Liz [facility] POCT GLUCOSE (AUTOMATED) 2022-12-08 04:43:00 Lv Liz [facility] POCT GLUCOSE (AUTOMATED) 2022-12-08 00:56:00 Lv Liz [facility] POCT GLUCOSE (AUTOMATED) 2022-12-07 21:50:00 Lv Liz [facility] CBC WITHOUT DIFF 2022-12-07 21:31:00 Juvenal [facility] GLYCOSYLATED HEMOGLOBIN 2022-12-07 21:31:00 Juvenal [facility] (A1C) [facility] XR CHEST 1 VW 2022-12-07 [facility]:38[facility] SCREEN BY 2022-12-07 18:01:00 Raad Sanford [facility] PCR, NARES Medical Branch ACUTE CARE ARTERIAL BLOOD 2022-12-07 18:00:00 [facility]SE METER 2022-11-26 10:10:00 Soraya [place] XR CHEST 1 VIEW PORTABLE 2022-11-26 09:14:00 Soraya [facility] CBC W/PLT COUNT & AUTO 2022-11-26 06:01:00 Soraya [facility] DIFFERENTIAL [place] COMPREHENSIVE METABOLIC 2022-11-26 06:01:00 Soraya [facility] PANEL [place] MAGNESIUM 2022-11-26 06:01:00 Soraya [facility] CBC W/PLT COUNT & AUTO 2022-11-26 06:01:00 Soraya [facility] POCT-GLUCOSE METER 2022-11-25 23:20:00 Soraya [place] CBC W/PLT COUNT & AUTO 2022-11-25 16:53:00 Soraya [facility] COMPREHENSIVE METABOLIC 2022-11-25 16:53:00 Soraya [facility] MAGNESIUM 2022-11-25 16:53:00 Soraya [facility] HEMOGLOBIN A1C 2022-11-25 16:53:00 Sroaya [facility] TSH/FREE T4 IF INDICATED 2022-11-25 16:53:00 Soraya [facility] B-TYPE NATRIURETIC FACTOR 2022-11-25 16:53:00 Soraya [facility] (BNP) [place] T4, FREE 2022-11-25 16:53:00 Soraya [facility] CBC W/PLT COUNT & AUTO 2022-11-25 16:53:00 Soraya [facility] POCT-GLUCOSE METER 2022-11-25 16:32:00 Soraya [place] POCT-GLUCOSE METER 2022-11-25 09:08:00 Soraya [place] EKG-SCANNED 2022-11-25 00:00:00 Provider, Jamil [facility] TROPONIN I 2022-09-09 13:20:00 Joslyn Ruelas [facility] COMP. METABOLIC PANEL 2022-09-09 13:20:00 Joslyn Ruelas [facility] ([id number]) [facility] CBC WITH DIFF 2022-09-09 13:20:00 Joslyn Ruelas [facility] RAPID INFLUENZA A/B 2022-09-09 13:20:00 Joslyn Ruelas [facility] N-TERMINAL PRO-BNP 2022-09-09 13:20:00 Joslyn Ruelas [facility] COVID-19 (ID NOW RAPID 2022-09-09 13:20:00 Joslyn Ruelas Un [facility] TESTING) [facility] CONSENT/REFUSAL FOR 2022-09-09 12:19:48 Doctor Unassigned, [facility] DIAGNOSIS AND TREATMENT [place] [facility] POCT GLUCOSE (AUTOMATED) 2022-08-10 17:15:00 Jonas Hernandez Uni [facility] POCT GLUCOSE (AUTOMATED) 2022-08-10 13:45:00 Jonas Hernandez Uni [facility] POCT GLUCOSE (AUTOMATED) 2022-08-10 09:17:00 Jonas Hernandez Uni [facility] POCT GLUCOSE (AUTOMATED) 2022-08-10 06:01:00 Jonas [facility] (AUTOMATED) 2022-08-10 02:09:00 Jonas Hernandez [facility] PO[facility] GLUCOSE (AUTOMATED) 2022-08-09 22:26:00 Jonas Hernandez [facility] XR CHEST 1 VW 2022-08-09 19:47:37 [facility] XR CHEST 1 VW 2022-08-09 14:07:17 Corey Gonzalez [facility] POCT GLUCOSE (AUTOMATED) 2022-08-09 13:17:00 [facility]as [facility] PHOSPHORUS 2022-08-09 11:24:00 Carlos [facility] MAGNESIUM 2022-08-09 11:24:00 [facility]OL[facility] PANEL 2022-08-09 11:24:00 Corey Gonzalez [facility] (NA, K, CL, CO2, GLUCOSE, Medica l Branch BUN, CREATININE, CA) CBC WITH DIFF 2022-08-09 11:24:00 Carlos [facility] POCT GLUCOSE (AUTOMATED) 2022-08-09 11:22:00 [...] 2022-08-08 06:10:00 Jonas Hernandez Uni versity of [facility] [place] [facility] POCT GLUCOSE (AUTOMATED) 2022-08-08 02:37:00 Jonas Hernandez Uni versity of [facility] [place] [facility] POCT GLUCOSE (AUTOMATED) 2022-08-07 22:16:00 Jonas Hernanedz Uni versity of [facility] [place] [facility] POCT GLUCOSE (AUTOMATED) 2022-08-07 17:26:00 Jonas Hernandez Uni versity of [facility] [place] [facility] TRANSTHORACIC ECHO (TTE) 2022-08-07 16:31:00 Stella Ivory versity of [facility] W/ CONTRAST Medical [facility] POCT GLUCOSE (AUTOMATED) 2022-08-07 13:42:00 Jonas Hernandez [facility] PHOSPHORUS 2022-08-07 11:00:00 Corey Gonzalez [facility] MAGNESIUM 2022-08-07 11:00:00 Corey Gonzalez [facility] BILI UNCONJUGATED/BILI 2022-08-07 11:00:00 Corey Gonzalez [facility] TROPONIN I 2022-08-07 11:00:00 [facility] THYROID STIMULATING 2022-08-07 11:00:00 Corey Gonzalez [facility] HORMONE [facility] COMP. METABOLIC PANEL 2022-08-07 11:00:00 Jonas Hernandez [id number] CBC WITH DIFF 2022-08-07 11:00:00 Carlos [facility] N-TERMINAL PRO-BNP 2022-08-07 11:00:00 Corey Gonzalez [facility] ACUTE CARE VENOUS BLOOD 2022-08-07 10:59:[address] [facility] POCT GLUCOSE (AUTOMATED) 2022-08-07 10:17:00 Jonas Hernandez [facility] POCT GLUCOSE (AUTOMATED) 2022-08-07 05:38:00 Jonas Hernandez [facility] POCT GLUCOSE (AUTOMATED) 2022-08-07 02:06:00 Jonas Hernandez [facility] POCT GLUCOSE (AUTOMATED) 2022-08-06 22:27:00 Jonas Hernandez [facility] POCT GLUCOSE (AUTOMATED) 2022-08-06 17:15:00 Jonas Hernandez [facility] CT THORAX W CONTRAST 2022-08-06 16:53:51 Anish Walters [facility] CORTISOL AM 2022-08-06 13:33:00 Jonas Hernandez [facility] CBC WITH DIFF 2022-08-06 13:33:00 Mary [facility] LACTIC ACID WHOLE BLOOD 2022-08-06 13:33:00 Jonas Hernandez [facility] POCT GLUCOSE (AUTOMATED) 2022-08-06 13:27:00 Jonas Hernandez [facility] POCT GLUCOSE (AUTOMATED) 2022-08-06 10:37:00 Jonas Hernandez [facility] PHOSPHORUS 2022-08-06 10:25:00 Jonas Hernandez [facility] CREATINE KINASE 2022-08-06 10:25:00 Jonas Hernandez [facility] MAGNESIUM 2022-08-06 10:25:00 Mary agus [facility] TROPONIN I 2022-08-06 10:25:00 Mary [facility] COMP. METABOLIC PANEL 2022-08-06 10:25:00 Jonas Hernandez [facility] ([id number]) [facility] ACUTE CARE VENOUS BLOOD 2022-08-06 10:25:[address] [facility] N-TERMINAL PRO-BNP 2022-08-06 10:25:00 Jonas Hernandez [facility] POCT GLUCOSE (AUTOMATED) 2022-08-06 06:54:00 Jonas Hernandez [facility] POCT GLUCOSE (AUTOMATED) 2022-08-06 02:30:00 Jonas Hernandez [facility] POCT GLUCOSE (AUTOMATED) 2022-08-05 22:59:00 Jonas Hernandez [facility] TROPONIN I 2022-08-05 22:00:00 Jonas Hernandez [facility] URINALYSIS 2022-08-05 21:45:00 Corey Gonzalez [facility] URINE CULTURE 2022-08-05 21:45:00 Corey Gonzalez [facility] POCT GLUCOSE (AUTOMATED) 2022-08-05 17:53:00 Jonas Hernandez [facility] POCT GLUCOSE (AUTOMATED) 2022-08-05 13:19:00 Jonas Hernandez [facility] XR CHEST 1 VW 2022-08-05 12:59:00 Jonas Hernandez [facility] LEGIONELLA URINARY 2022-08-05 11:12:00 Jonas Hernandez [facility] ANTIGEN TST [facility] RESPIRATORY PANEL BY PCR 2022-08-05 11:12:00 Jonas Hernandez [facility] URINE CULTURE 2022-08-05 11:11:00 Jonas Hernandez [facility] SODIUM, URINE RANDOM 2022-08-05 11:11:00 Jonas Hernandez [facility] PNEUMOCOCCAL ANTIGEN 2022-08-05 11:11:00 Jonas Hernandez [facility] PROTEIN CREAT RATIO URINE 2022-08-05 11:11:00 Jonas Hernandez [facility] RANDOM [facility] OSMOLALITY URINE 2022-08-05 11:10:[address] [facility] MRSA / MSSA SCREEN BY 2022-08-05 11:09:00 Jonas Hernandez [facility] PCR, NARES [facility] PHOSPHORUS 2022-08-05 11:08:00 Mary agus [facility] CREATINE KINASE 2022-08-05 11:08:00 Mary agus [facility] MAGNESIUM 2022-08-05 11:08:00 Mary agus [facility] TROPONIN I 2022-08-05 11:08:00 Mary agus [facility] COMP. METABOLIC PANEL 2022-08-05 11:08:00 Jonas Hernandez [facility] ([id number]) [facility] LIPID PANEL ([id number])(TOTAL 2022-08-05 11:08:00 Jonas Hernandez [facility] TRIGLYCERIDES, HDL) SEDIMENTATION RATE 2022-08-05 11:08:00 Jonas Hernandez [facility] GLYCOSYLATED HEMOGLOBIN 2022-08-05 11:08:00 Jonas Hernandez [facility] (A1C) [facility] URINALYSIS 2022-08-05 11:08:00 MaryJonas delgado [facility] MYCOPLASMA PNEUMONIAE 2022-08-05 11:08:00 Jonas Hernandez [facility] ANTIBODY, IGM Medical Branch N-TERMINAL PRO-BNP 2022-08-05 11:08:00 Jonas Hernandez [facility] PROCALCITONIN 2022-08-05 11:08:00 Mary agus [facility] AC PANEL 20 + LACTIC ACID 2022-08-05 10:56:00 Jonas Hernandez [facility] ASSIGNMENT OF BENEFITS 2022-08-05 06:59:31 Doctor Unassigned, [facility] [place] CONSENT/REFUSAL FOR 2022-08-05 06:58:52 Doctor Unasssheila, [facility] DIAGNOSIS AND TREATMENT [facility] [place] XR CHEST 1 VW 2022-06-05 04:10:06 Singer [facility] TROPONIN I 2022-06-05 03:21:00 Singer [facility] COMP. METABOLIC PANEL 2022-06-05 03:21:00 Gen Acevedo [facility] ([id number]) [facility] CBC WITH DIFF 2022-06-05 03:21:00 Singer [facility] RAPID INFLUENZA A/B 2022-06-05 03:21:00 Gen Acevedo [facility] N-TERMINAL PRO-BNP 2022-06-05 03:21:00 Singer Gen [facility] COVID-19 (ID NOW RAPID 2022-06-05 03:21:00 Singer Gen [facility] TESTING) Medical Branch CONSENT/REFUSAL FOR 2022-06-05 02:20:45 Doctor Unasssheila, [facility] DIAGNOSIS AND TREATMENT [facility] [place] TROPONIN I 2022-05-13 07:08:00 Jae Paula [facility] CT CHEST PULMONARY 2022-05-13 06:13:34 Paula Rowe [facility] ANGIOGRAM Medical Branch XR CHEST 1 VW 2022-05-13 04:42:[address] [facility] BLOOD CULTURE SCREEN 2022-05-13 04:10:00 Paula Rowe [facility] [facility] TROPONIN I 2022-05-13 04:10:00 Paula Rowe [facility] COMP. METABOLIC PANEL 2022-05-13 04:10:00 Paula Rowe [facility] ([id number]) Medical Branch CBC WITH DIFF 2022-05-13 04:10:00 Paula Rowe [facility] PROTHROMBIN TIME / INR 2022-05-13 04:10:00 Paula Rowe [facility] ACTIVATED PARTIAL 2022-05-13 04:10:00 Paula Rowe [facility] THRLAS [facility] RAPID INFLUENZA A/B 2022-05-13 04:10:00 Paula Rowe [facility] N-TERMINAL PRO-BNP 2022-05-13 04:10:00 Paula Rowe [facility] COVID-19 (ID NOW RAPID 2022-05-13 04:10:00 Paula Rowe [facility] TESTING) [facility] AC PANEL 21 + LACTIC ACID 2022-05-02 06:08:00 [facility] VW 2022-05-02 05:52:00 [facility]IN[facility] 2022-05-02 05:44:00 Sanjay Henry [facility] MAGNESIUM 2022-05-02 05:43:00 Sanjay Henry [facility] TROPONIN I 2022-05-02 05:43:00 Sanjay Henry [facility] COMP. METABOLIC PANEL 2022-05-02 05:43:00 Sanjay Henry [facility] ([id number]) Medical Branch CBC WITH DIFF 2022-05-02 05:43:00 Sanjay Henry [facility] N-TERMINAL PRO-BNP 2022-05-02 05:43:00 Sanjay Henry [facility] CONSENT/REFUSAL FOR 2022-05-02 05:16:55 Doctor Unassigned, [facility] DIAGNOSIS AND TREATMENT [place] [facility] COVID-19 (ID NOW RAPID 2022-04-29 03:43:00 Paula Rowe [facility] TESTING) Medical Branch CT ABDOMEN PELVIS WO 2022-04-29 03:38:06 Paula Rowe [facility] CONTRAST [facility] Branch XR CHEST 1 VW 2022-04-29 03:23:24 Paula Rowe [facility] TROPONIN I 2022-04-29 02:49:00 Paula Rowe [facility] COMP. METABOLIC PANEL 2022-04-29 02:49:00 Paula Rowe [facility] ([id number]) Medical Branch CBC WITH DIFF 2022-04-29 02:49:00 Paula Rowe [facility] PROTHROMBIN TIME / INR 2022-04-29 02:49:00 Paula Rowe [facility] ACTIVATED PARTIAL 2022-04-29 02:49:00 Paula Rowe [facility] THRMPLAS SHREYA [facility] N-TERMINAL PRO-BNP 2022-04-29 02:49:00 Paula Rowe [facility] POCT GLUCOSE (AUTOMATED) 2022-02-27 20:30:00 Kevin Lebron [facility] POCT GLUCOSE (AUTOMATED) 2022-02-27 16:16:00 Kevin Lebron [facility] POCT GLUCOSE (AUTOMATED) 2022-02-27 12:27:00 Kevin Lebron [facility] POCT GLUCOSE (AUTOMATED) 2022-02-26 21:42:00 Kevin Lebron [facility] POCT GLUCOSE (AUTOMATED) 2022-02-26 17:49:00 Kevin Lebron [facility] POCT GLUCOSE (AUTOMATED) 2022-02-26 14:27:00 Kevin Lebron [facility] MAGNESIUM 2022-02-26 08:50:[address] [facility] BASIC METABOLIC PANEL 2022-02-26 08:50:00 Artie Rodriguez [facility] (NA, K, CL, CO2, GLUCOSE, Medica l Branch BUN, CREATININE, CA) POCT GLUCOSE (AUTOMATED) 2022-02-26 01:26:00 Nagan, Kevin [facility] POCT GLUCOSE (AUTOMATED) 2022-02-25 20:40:00 Yasmine Kevin [facility] POCT GLUCOSE (AUTOMATED) 2022-02-25 16:39:00 YasmineKevin [facility] ACUTE CARE ARTERIAL BLOOD 2022-02-25 14:04:00 [facility] PO[facility]SE ([facility]OMATED) 2022-02-25 12:51:00 Yasmine Kevin [facility] PHOSPHORUS 2022-02-25 11:01:00 Lisa Fritz [facility] MAGNESIUM 2022-02-25 11:01:00 Lam [facility] BASIC METABOLIC PANEL 2022-02-25 11:01:00 Lisa Fritz [facility] (NA, K, CL, CO2, GLUCOSE, Medica l Branch BUN, CREATININE, CA) POCT GLUCOSE (AUTOMATED) 2022-02-25 01:24:00 Yasmine Kevin [facility] POCT GLUCOSE (AUTOMATED) 2022-02-24 20:49:00 Yasmine Kevin [facility] POCT GLUCOSE (AUTOMATED) 2022-02-24 16:52:00 Yasmine Kevin [facility] ACUTE CARE ARTERIAL BLOOD 2022-02-24 16:42:00 [facility] PO[facility]SE (AUTOMATED) 2022-02-24 13:24:00 Yasmine Kevin [facility] TROPONIN I 2022-02-24 12:34:00 [facility]OL[facility] PANEL 2022-02-24 12:34:00 Lisa Fritz [facility] (NA, K, CL, CO2, GLUCOSE, Medica l Branch BUN, CREATININE, CA) HB ECG ROUTINE & RHYTHM 2022-02-24 12:23:17 Lisa Fritz [facility] LACTIC ACID WHOLE BLOOD 2022-02-24 03:13:00 Britt Gabriel [facility] POCT GLUCOSE (AUTOMATED) 2022-02-24 01:20:00 Yasmine Kevin Rinaldi [facility] XR KUB 2022-02-24 00:31:00 Dana [facility] POCT GLUCOSE (AUTOMATED) 2022-02-23 22:34:00 Yasmine Kevin Rinaldi [facility] POCT GLUCOSE (AUTOMATED) 2022-02-23 21:46:00 Yasmine Kevin Rinaldi [facility] XR CHEST 1 VW 2022-02-23 19:26:00 Dana [facility] AC PANEL 20 + LACTIC ACID 2022-02-23 18:02:00 Isma Cortez [facility] POCT GLUCOSE (AUTOMATED) 2022-02-23 17:19:00 Yasmine Kevin Rinaldi [facility] POCT GLUCOSE (AUTOMATED) 2022-02-23 13:22:00 Yasmine Kevin [facility] POCT GLUCOSE (AUTOMATED) 2022-02-22 21:55:00 Yasmine Kevin [facility] POCT GLUCOSE (AUTOMATED) 2022-02-22 18:22:00 Yasmine Kevin [facility] CBC WITH DIFF 2022-02-22 11:32:00 Joshua [facility] MAGNESIUM 2022-02-22 11:31:00 Joshua [facility] BASIC METABOLIC PANEL 2022-02-22 11:31:00 Joshua [facility] (NA, K, CL, CO2, GLUCOSE, Medica l Branch BUN, CREATININE, CA) XR CHEST 1 VW 2022-02-22 09:34:00 Joshua [facility] POCT GLUCOSE (AUTOMATED) 2022-02-22 01:20:00 Yasmine Kevin [facility] POCT GLUCOSE (AUTOMATED) 2022-02-21 21:53:00 Yasmine Kevin [facility] CBC WITHOUT DIFF 2022-02-21 15:46:00 [facility] PO[facility]SE (AUTOMATED) 2022-02-21 14:26:00 Yasmine Kevin [facility] URINALYSIS 2022-02-21 08:27:00 Joshua [facility] URINE CULTURE 2022-02-21 08:27:00 Joshua [facility] MAGNESIUM 2022-02-21 08:06:00 Joshua [facility] BASIC METABOLIC PANEL 2022-02-21 08:06:00 Joshua [facility] (NA, K, CL, CO2, GLUCOSE, Medica l Branch BUN, CREATININE, CA) CBC WITH DIFF 2022-02-21 08:06:00 Joshua [facility] MRSA / MSSA SCREEN BY 2022-02-21 03:21:00 Chase Ny [facility] PCR, [facility] [place] POCT GLUCOSE (AUTOMATED) 2022-02-21 02:31:00 Kevin Lebron [facility] BLOOD CULTURE SCREEN 2022-02-21 01:58:00 Joshua [facility] BLOOD CULTURE SCREEN 2022-02-21 01:49:00 [facility] 1 VW 2022-02-20 23:44:00 Kevin [facility] ACUTE CARE ARTERIAL BLOOD 2022-02-20 23:23:00 Chase Ny [facility] XR CHEST 1 VW 2022-02-20 20:39:00 Paula Rowe [facility] TROPONIN I 2022-02-20 20:17:00 Paula Rowe [facility] COMP. METABOLIC PANEL 2022-02-20 20:17:00 Paula Rowe [facility] ([id number]) [facility] [place] CBC WITH DIFF 2022-02-20 20:17:00 Paula Rowe [facility] PROTHROMBIN TIME / INR 2022-02-20 20:17:00 Paula Rowe [facility] ACTIVATED PARTIAL 2022-02-20 20:17:00 Paula Rowe [facility] N-TERMINAL PRO-BNP 2022-02-20 20:17:00 Paula Rowe [facility] COVID-19 (ID NOW RAPID 2022-02-20 20:07:00 Paula Rowe [facility] TESTING) Medical Branch LAB ONLY COVID 2022-02-20 20:07:00 Paula Rowe [facility] INTERPRETATION [facility] HB ECG ROUTINE & RHYTHM 2022-02-20 20:06:49 Paula Rowe [facility] STRIP Medical Branch CONSENT/REFUSAL FOR 2022-02-20 19:58:43 Doctor Arturo, [facility] 2022-02-20 05:01:00 Doctor Arturo, [facility] DOCUMENTS [place] [facility] [place] H[facility]PITAL ADMISSION 2022-02-20 05:01:00 [facility] PO[facility] (AUTOMATED) 2022-02-17 21:44:00 Termingamaliel, Valeriano [facility] POCT GLUCOSE (AUTOMATED) 2022-02-17 17:09:00 Terminella, Valeriano U [facility] POCT GLUCOSE (AUTOMATED) 2022-02-17 13:06:00 Termingamaliel, Valeriano [facility] CHEST 1 VW 2022-02-17 11:51:08 [facility] 2022-02-17 09:13:00 Nathaniel [facility] BASIC METABOLIC PANEL 2022-02-17 09:13:00 Kayla Armstrong [facility] (NA, K, CL, CO2, GLUCOSE, Medica l Branch BUN, CREATININE, CA) CBC WITH DIFF 2022-02-17 09:13:00 Nathaniel [facility] ACUTE CARE ARTERIAL BLOOD 2022-02-17 09:02:00 Kayla Armstrong [facility] GAS [facility] POCT GLUCOSE (AUTOMATED) 2022-02-17 00:49:00 Terminella, Valeriano U niversity [facility] XR CHEST 1 VW 2022-02-16 23:15:00 [facility] POCT GLUCOSE (AUTOMATED) 2022-02-16 21:46:00 Terminella, Valeriano [...] [facility] MAGNESIUM 2022-02-15 07:56:00 Roberto Murdock [facility] COMP. METABOLIC PANEL 2022-02-15 07:56:00 Roberto Murdock [facility] ([id number]) [facility] CBC WITHOUT DIFF 2022-02-15 07:56:00 Roberto Murdock [facility] POCT GLUCOSE (AUTOMATED) 2022-02-15 04:15:00 Terminella, Valeriano [...] 2022-02-14 14:17:00 Terminella, Valeriano U [facility] Branch XR CHEST 1 VW 2022-02-14 11:42:00 Nathaniel [facility] MAGNESIUM 2022-02-14 09:56:00 Nathaniel [facility] COMP. METABOLIC PANEL 2022-02-14 09:56:00 Nathaniel [facility] ([id number]) [facility] CBC WITH DIFF 2022-02-14 09:56:00 Nathaniel [facility] ACUTE CARE ARTERIAL BLOOD 2022-02-14 08:33:00 Kayla [facility] POCT GLUCOSE (AUTOMATED) 2022-02-14 08:17:00 Terminella, Valeriano [facility] POCT GLUCOSE (AUTOMATED) 2022-02-14 04:25:00 Terminella, Valeriano [facility] EKG-12 LEAD 2022-02-14 04:11:18 Doctor Unassigned, [facility] POCT GLUCOSE (AUTOMATED) 2022-02-14 00:55:00 Terminella, Valeriano [facility] POCT GLUCOSE (AUTOMATED) 2022-02-13 22:29:00 Terminella, Valeriano [facility] POCT GLUCOSE (AUTOMATED) 2022-02-13 17:29:00 Terminella, Valeriano [facility] POCT GLUCOSE (AUTOMATED) 2022-02-13 15:52:00 Terminella, Valeriano [facility] ACUTE CARE ARTERIAL BLOOD 2022-02-13 14:22:00 Kayla [facility] POCT GLUCOSE (AUTOMATED) 2022-02-13 14:07:00 Terminella, Valeriano [facility] DUPLEX VENOUS LEGS 2022-02-13 14:00:43 Roberto Murdock [facility] BILATERAL - BY VASCULAR Medical Branch LAB POCT GLUCOSE (AUTOMATED) 2022-02-13 12:45:00 Terminella, Valeriano [facility] POCT GLUCOSE (AUTOMATED) 2022-02-13 11:43:00 Terminella, Valeriano [facility] MAGNESIUM 2022-02-13 10:33:00 Termingamaliel, [facility] BASIC METABOLIC PANEL 2022-02-13 10:33:00 MurdockRoberto gillette [facility] [place] (NA, K, CL, CO2, GLUCOSE, Medica l Branch BUN, CREATININE, CA) CBC WITH DIFF 2022-02-13 10:33:00 Terminella, [facility] POCT GLUCOSE (AUTOMATED) 2022-02-13 09:42:00 Terminella, Valeriano [facility] POCT GLUCOSE (AUTOMATED) 2022-02-13 08:46:00 Terminella, Valeriano [facility] POCT GLUCOSE (AUTOMATED) 2022-02-13 07:59:00 Terminella, Valeriano [facility] POCT GLUCOSE (AUTOMATED) 2022-02-13 06:56:00 Terminella, Valeriano [facility] POCT GLUCOSE (AUTOMATED) 2022-02-13 05:57:00 Terminella, Valeriano [facility] POCT GLUCOSE (AUTOMATED) 2022-02-13 03:36:00 Terminella, Valeriano [facility] BASIC METABOLIC PANEL 2022-02-13 03:30:00 Roberto Murdock [facility] [place] (NA, K, CL, CO2, GLUCOSE, Medica l Branch BUN, CREATININE, CA) POCT GLUCOSE (AUTOMATED) 2022-02-13 02:46:00 Terminella, Valeriano [facility] POCT GLUCOSE (AUTOMATED) 2022-02-13 01:37:00 Terminella, Valeriano [facility] POCT GLUCOSE (AUTOMATED) 2022-02-13 00:34:00 Terminella, Valeriano [facility] POCT GLUCOSE (AUTOMATED) 2022-02-12 23:25:00 Terminella, Valeriano [facility] POCT GLUCOSE (AUTOMATED) 2022-02-12 22:20:00 Terminella, Valeriano [facility] POCT GLUCOSE (AUTOMATED) 2022-02-12 21:02:00 Terminella, Valeriano [facility] BASIC METABOLIC PANEL 2022-02-12 20:39:00 Murdock, Roberto [facility] (NA, K, CL, CO2, GLUCOSE, Medica l Branch BUN, CREATININE, CA) POCT GLUCOSE (AUTOMATED) 2022-02-12 20:02:00 Terminella, Valeriano [facility] POCT GLUCOSE (AUTOMATED) 2022-02-12 19:06:00 Terminella, Valeriano [facility] POCT GLUCOSE (AUTOMATED) 2022-02-12 18:09:00 Terminella Valeriano [facility] POCT GLUCOSE (AUTOMATED) 2022-02-12 17:17:00 Terminella Valeriano [facility] SPUTUM CULTURE 2022-02-12 16:29:[address] [facility] BASIC METABOLIC PANEL 2022-02-12 16:16:00 Kayla Armstrong [facility] (NA, K, CL, CO2, GLUCOSE, Medica l Branch BUN, CREATININE, CA) POCT GLUCOSE (AUTOMATED) 2022-02-12 16:11:00 Terminella Valeriano [facility] POCT GLUCOSE (AUTOMATED) 2022-02-12 14:14:00 Terminella, Valeriano [facility] POCT GLUCOSE (AUTOMATED) 2022-02-12 13:17:00 Terminella, Valeriano [facility] POCT GLUCOSE (AUTOMATED) 2022-02-12 12:42:00 Terminella, Valeriano [facility] BASIC METABOLIC PANEL 2022-02-12 12:18:00 [facility]January[facility] (NA, K, CL, CO2, GLUCOSE, Medica l Branch BUN, CREATININE, CA) POCT GLUCOSE (AUTOMATED) 2022-02-12 12:17:00 Valeriano Pantoja [facility] POCT GLUCOSE (AUTOMATED) 2022-02-12 11:15:00 [facility] Valeriano [facility] POCT GLUCOSE (AUTOMATED) 2022-02-12 10:12:00 Scarlett [facility] POCT GLUCOSE (AUTOMATED) 2022-02-12 09:12:00 [facility] MRSA / MSSA SCREEN BY 2022-02-12 08:23:00 [facility] PANEL 20 + LACTIC ACID 2022-02-12 08:22:00 [facility] PHOSPHORUS 2022-02-12 08:21:00 [facility] 2022-02-12 08:21:00 [facility] OSMOLALITY, SERUM OR 2022-02-12 08:21:00 [facility] PLASMA [facility] BETA HYDROXY-BUTYRATE 2022-02-12 08:21:00 [facility] BASIC METABOLIC PANEL 2022-02-12 08:21:00 [facility] (NA, K, CL, CO2, GLUCOSE, [facility] BUN, CREATININE, CA) CBC WITH DIFF 2022-02-12 08:21:00 [facility] GLYCOSYLATED HEMOGLOBIN 2022-02-12 08:21:00 [facility]January[facility] POCT GLUCOSE (AUTOMATED) 2022-02-12 04:53:00 Paula Rowe [facility] URINE DRUG (IMMUNOASSAY) 2022-02-12 04:24:00 Paula Rowe [facility] SCREEN W/O REFLEX URINALYSIS 2022-02-12 04:23:00 Paula Rowe o f [facility] POCT GLUCOSE (AUTOMATED) 2022-02-12 04:12:00 Paula Rowe [facility] CHEST PULMONARY 2022-02-12 02:41:40 Paula Rowe [facility] ANGIOGRAM [facility] Branch CT ABDOMEN PELVIS W 2022-02-12 02:39:36 Paula Rowe [facility] CONTRAST [facility] CT HEAD WO CONTRAST 2022-02-12 02:39:36 Paula Rowe [facility] XR CHEST 1 VW 2022-02-12 02:08:38 Paula Rowe [facility] AC PANEL 20 + LACTIC ACID 2022-02-12 01:59:00 Paula Rowe [facility] AMMONIA, PLASMA 2022-02-12 01:18:00 Paula Rowe [facility] BLOOD CULTURE SCREEN 2022-02-12 01:16:00 Paula Rowe [facility] COVID-19 (ID NOW RAPID 2022-02-12 01:16:00 Paula Rowe [facility] TESTING) Medical Branch LAB ONLY COVID 2022-02-12 01:16:00 Paula Rowe [facility] INTERPRETATION [facility] BLOOD CULTURE SCREEN 2022-02-12 01:12:00 Paula Rowe [facility] TROPONIN I 2022-02-12 01:12:00 Paula Rwoe [facility] FREE T4 2022-02-12 01:12:00 Paula Rowe [facility] THYROID STIMULATING 2022-02-12 01:12:00 Paula Rowe [facility] HORMONE [facility] COMP. METABOLIC PANEL 2022-02-12 01:12:00 Paula Rowe [facility] ([id number]) Medical Branch ETHANOL 2022-02-12 01:12:00 Paula Roew [facility] CBC WITH DIFF 2022-02-12 01:12:00 Paula Rowe [facility] PROTHROMBIN TIME / INR 2022-02-12 01:12:00 Paula Rowe [facility] ACTIVATED PARTIAL 2022-02-12 01:12:00 Paula Rowe [facility] THRMPLAS SHREYA [facility] N-TERMINAL PRO-BNP 2022-02-12 01:12:00 Paula Rowe [facility] EKG-12 LEAD 2022-02-12 01:06:16 Doctor Unassigned, [facility] Name [facility] [place] POCT GLUCOSE (AUTOMATED) 2022-02-12 00:57:00 Paula Rowe [facility] ASSIGNMENT OF BENEFITS 2022-02-12 00:53:44 Doctor Unassigned, [facility] Name [facility] [place] CONSENT/REFUSAL FOR 2022-02-12 00:53:30 Doctor Unassigned, [facility] DIAGNOSIS AND TREATMENT [facility] EMERGENCY DEPARTMENT 2022-02-11 05:01:00 Doctor Unassigned, [facility] DOCUMENTS [facility] POCT GLUCOSE (AUTOMATED) 2022-01-31 16:09:00 Jonas Hernandez [facility] POCT GLUCOSE (AUTOMATED) 2022-01-31 12:37:00 Jonas Hernandez [facility] PHOSPHORUS 2022-01-31 09:02:00 [facility] MAGNESIUM 2022-01-31 09:02:00 [facility] BASIC METABOLIC PANEL 2022-01-31 09:02:00 [facility] (NA, K, CL, CO2, GLUCOSE, Medica l Branch BUN, CREATININE, CA) ACUTE CARE VENOUS BLOOD 2022-01-31 09:02:00 [facility] GAS [facility] N-TERMINAL PRO-BNP 2022-01-31 09:02:[address] [facility] POCT GLUCOSE (AUTOMATED) 2022-01-30 21:20:00 Jonas Hernandez [facility] POCT GLUCOSE (AUTOMATED) 2022-01-30 16:58:00 Jonas Hernandez [facility] POCT GLUCOSE (AUTOMATED) 2022-01-30 13:58:00 Jonas Hernandez [facility] POCT GLUCOSE (AUTOMATED) 2022-01-30 13:11:00 Jonas Hernandez [facility] COMP. METABOLIC PANEL 2022-01-30 09:22:00 Jonas Hernandez [facility] ([id number]) [facility] CBC WITH DIFF 2022-01-30 09:22:00 [facility]AL [facility]-BNP 2022-01-30 09:22:00 Jonas Hernandez [facility] ACUTE CARE VENOUS BLOOD 2022-01-30 09:21:[address] [facility] POCT GLUCOSE (AUTOMATED) 2022-01-30 03:01:00 Jonas Hernandez [facility] POCT GLUCOSE (AUTOMATED) 2022-01-29 21:03:00 Jonas Hernandez [facility] POCT GLUCOSE (AUTOMATED) 2022-01-29 16:05:00 Jonas Hernandez [facility] POCT GLUCOSE (AUTOMATED) 2022-01-29 15:13:00 Jonas Hernandez [facility] SPUTUM CULTURE 2022-01-29 13:06:00 Luz Maria [facility] POCT GLUCOSE (AUTOMATED) 2022-01-29 12:46:00 Jonas Hernandez [facility] PHOSPHORUS 2022-01-29 09:33:00 Luz Maria [facility] MAGNESIUM 2022-01-29 09:33:00 Jonas Hernandez [facility] COMP. METABOLIC PANEL 2022-01-29 09:33:00 Jonas Hernandez [facility] ([id number]) [facility] CBC WITH DIFF 2022-01-29 09:33:00 [facility] N-TERMINAL PRO-BNP 2022-01-29 09:33:00 Jonas Hernandez [facility] ACUTE CARE VENOUS BLOOD 2022-01-29 09:32:[address] [facility] POCT GLUCOSE (AUTOMATED) 2022-01-29 02:58:00 Jonas Hernandez [facility] POCT GLUCOSE (AUTOMATED) 2022-01-29 01:35:00 Jonas Hernandez [facility] POCT GLUCOSE (AUTOMATED) 2022-01-28 21:20:00 Jonas Hernandez [facility] XR CHEST 1 VW 2022-01-28 18:54:18 [facility] PROTEIN CREAT RATIO URINE 2022-01-28 16:54:00 Dilan Coffey [facility] URIC ACID 2022-01-28 16:49:[address] [facility] TROPONIN I 2022-01-28 16:49:00 Mary agus [facility] TRANSTHORACIC ECHO (TTE) 2022-01-28 15:37:00 Jonas Hernandez [facility] COMPLETE W/ CONTRAST Medical [facility] DUPLEX VENOUS LEGS 2022-01-28 14:42:22 Jonas Hernandez [facility] BILATERAL - BY VASCULAR [facility] LAB POCT GLUCOSE (AUTOMATED) 2022-01-28 13:57:00 Jonas Hernandez [facility] POCT GLUCOSE (AUTOMATED) 2022-01-28 12:58:00 Jonas Hernandez [facility] TROPONIN I 2022-01-28 11:46:[address] [facility] IRON PANEL 2022-01-28 11:46:00 Mary agus [facility] SEDIMENTATION RATE 2022-01-28 11:46:00 Mary agus [facility] N-TERMINAL PRO-BNP 2022-01-28 11:46:[address] [facility] PHOSPHORUS 2022-01-28 11:45:00 Mary agus [facility] CREATINE KINASE 2022-01-28 11:45:00 Mary [facility] URIC ACID 2022-01-28 11:45:00 Mary agus [facility] MAGNESIUM 2022-01-28 11:45:00 Mary [facility] FERRITIN SERUM 2022-01-28 11:45:00 Mary agus [facility] VITAMIN B12, LEVEL 2022-01-28 11:45:00 Jonas Hernandez [facility] TROPONIN I 2022-01-28 11:45:00 Mary agus [facility] THYROID STIMULATING 2022-01-28 11:45:00 Jonas Hernandez [facility] HORMONE [facility] COMP. METABOLIC PANEL 2022-01-28 11:45:00 Jonas Hernandez [facility] ([id number]) [facility] LIPID PANEL ([id number])(TOTAL 2022-01-28 11:45:00 Jonas Hernandez [facility] CHOLESTEROL, [facility] TRIGLYCERIDES, HDL) ACUTE CARE VENOUS BLOOD 2022-01-28 11:45:[address] [facility] N-TERMINAL PRO-BNP 2022-01-28 11:45:00 Jonas Hernandez [facility] VITAMIN D, 25-OH 2022-01-28 11:45:00 [facility] PROCALCITONIN 2022-01-28 11:45:00 Mary [facility] OSMOLALITY URINE 2022-01-28 08:55:00 [facility] URINALYSIS 2022-01-28 08:55:00 Mary [facility] URINE CULTURE 2022-01-28 08:55:00 Mary [facility] UREA NITROGEN, URINE 2022-01-28 08:55:[address] [facility] SODIUM, URINE RANDOM 2022-01-28 08:55:00 Mary [facility] PROTEIN CREAT RATIO URINE 2022-01-28 08:55:00 Jonas Hernandez [facility] XR CHEST 1 VW 2022-01-28 02:23:00 Paula Rowe [facility] TROPONIN I 2022-01-28 02:09:00 Paula Rowe [facility] COMP. METABOLIC PANEL 2022-01-28 02:09:00 Paula Rowe [facility] ([id number]) Medical Branch CBC WITH DIFF 2022-01-28 02:09:00 aPula Rowe [facility] GLYCOSYLATED HEMOGLOBIN 2022-01-28 02:09:00 Jonas Hernandez [facility] (A1C) [facility] [place] PROTHROMBIN TIME / INR 2022-01-28 02:09:00 Paula Rowe [facility] ACTIVATED PARTIAL 2022-01-28 02:09:00 Paula Rowe [facility] THRMPLAS SHREYA [facility] N-TERMINAL PRO-BNP 2022-01-28 02:09:00 Paula Rowe [facility] COVID-19 (ID NOW RAPID 2022-01-28 02:09:00 Paula Rowe [facility] TESTING) Medical Branch LAB ONLY COVID 2022-01-28 02:09:00 Paula Rowe [facility] INTERPRETATION [facility] HB ECG ROUTINE & RHYTHM 2022-01-28 01:47:33 Paula Rowe [facility] STRIP Medical Branch NOTICE OF PRIVACY 2022-01-28 01:38:34 Doctor Unassigned, [facility] PRACTICES [facility] [place] CONSENT/REFUSAL FOR 2022-01-28 01:37:59 Doctor Unassigned, [facility] DIAGNOSIS AND TREATMENT [facility] COMP. METABOLIC PANEL 2022-01-12 23:24:00 Joslyn Ruelas [facility] ([id number]) [facility] CBC WITH DIFF 2022-01-12 23:24:00 Joslyn Ruelas [facility] XR CHEST 1 VW 2022-01-12 23:20:00 Joslyn Ruelas [facility] AC PANEL 21 + LACTIC ACID 2022-01-12 23:14:[address] [facility] POCT GLUCOSE (AUTOMATED) 2022-01-12 17:48:00 MoCory lucio [facility] POCT GLUCOSE (AUTOMATED) 2022-01-12 13:22:00 MoCory lucio [facility] POCT GLUCOSE (AUTOMATED) 2022-01-12 05:51:00 MoCory luico [facility] POCT GLUCOSE (AUTOMATED) 2022-01-11 23:02:00 Moulin, [facility] (AUTOMATED) 2022-01-11 17:20:00 Moulin, Cory [facility] PO[facility] GLUCOSE (AUTOMATED) 2022-01-11 13:08:00 Moulin, [facility] PO[facility] GLUCOSE (AUTOMATED) 2022-01-11 11:35:00 Moulin, Cory [facility] MAGNESIUM 2022-01-11 10:46:00 Ahmed [facility] BASIC METABOLIC PANEL 2022-01-11 10:46:00 Artie [facility] (NA, K, CL, CO2, GLUCOSE, Medica l Branch BUN, CREATININE, CA) CBC WITH DIFF 2022-01-11 10:46:00 Atrie [facility] POCT GLUCOSE (AUTOMATED) 2022-01-11 04:13:00 Moulin, Cory [facility] PO[facility] GLUCOSE (AUTOMATED) 2022-01-10 22:36:00 Moulin, Cory [facility] POCT GLUCOSE (AUTOMATED) 2022-01-10 16:44:00 Moulin, Cory [facility] POCT GLUCOSE (AUTOMATED) 2022-01-10 13:02:00 Moulin, Cory [facility] POCT GLUCOSE (AUTOMATED) 2022-01-10 10:44:00 Moulin, Cory [facility] 2022-01-10 07:19[facility]22-[facility]-10 [facility] ([facility], [facility], CL, CO2, GLUCOSE, Medica l Branch BUN, CREATININE, CA) CBC WITH DIFF 2022-01-10 07:19:00 Cam [facility] POCT GLUCOSE (AUTOMATED) 2022-01-10 04:48:00 Moulin, Cory [facility] PO[facility] GLUCOSE (AUTOMATED) 2022-01-09 17:23:00 Moulin, Cory Rinaldi versity [facility] POCT GLUCOSE (AUTOMATED) 2022-01-09 12:46:00 Moulin, Cory [facility] BASIC METABOLIC PANEL 2022-01-09 10:50:00 Artie [facility] (NA, K, CL, CO2, GLUCOSE, Medica l Branch BUN, CREATININE, CA) CBC WITH DIFF 2022-01-09 10:50:00 Artie [facility] POCT GLUCOSE (AUTOMATED) 2022-01-09 10:42:00 Moulin, Cory [...] Hospital BASIC METABOLIC PANEL 2022-01-08 10:48:00 Artie [facility] (NA, K, CL, CO2, GLUCOSE, Medica l Branch BUN, CREATININE, CA) CBC WITH DIFF 2022-01-08 10:48:00 Dawood Alva [facility] POCT GLUCOSE (AUTOMATED) 2022-01-08 05:43:00 Moulin, Cory [facility] POCT GLUCOSE (AUTOMATED) 2022-01-07 21:25:00 Moulin, Cory [facility] POCT GLUCOSE (AUTOMATED) 2022-01-07 16:34:00 Moulin, [facility] ABG+COOX+NA+K+GLU+CA2+ 2022-01-07 15:40:00 Abu [facility] (AUTOMATED) 2022-01-07 13:07:00 Moulin, Cory [facility] BASIC METABOLIC PANEL 2022-01-07 07:14:00 [facility] ([facility], K, CL, CO2, GLUCOSE, Medica l Branch BUN, CREATININE, CA) CBC WITH DIFF 2022-01-07 07:14:00 [facility] (AUTOMATED) 2022-01-07 05:53:00 Moulin, Croy [facility] POCT GLUCOSE (AUTOMATED) 2022-01-06 23:35:00 Moulin, Cory [facility] POCT GLUCOSE (AUTOMATED) 2022-01-06 22:16:00 Moulin, Cory [facility] XR CHEST 1 VW 2022-01-06 21:37:00 Abu Atherah, [facility] POCT GLUCOSE (AUTOMATED) 2022-01-06 17:02:00 Moulin, Cory [facility] POCT GLUCOSE (AUTOMATED) 2022-01-06 13:41:00 MoulinCory [facility] PHOSPHORUS 2022-01-06 09:21:00 Ahmed [facility] MAGNESIUM 2022-01-06 09:21:00 Ahmed, [facility] BASIC METABOLIC PANEL 2022-01-06 09:21:00 Dawood Alva [facility] (NA, K, CL, CO2, GLUCOSE, Medica l Branch BUN, CREATININE, CA) CBC WITH DIFF 2022-01-06 09:21:00 Artie [facility] POCT GLUCOSE (AUTOMATED) 2022-01-05 20:44:00 Moulin, Cory [facility] XR ABDOMEN 1 VW 2022-01-05 17:55:00 Abu Atherah, [facility] POCT GLUCOSE (AUTOMATED) 2022-01-05 16:54:00 Moulin, Cory [facility] POCT GLUCOSE (AUTOMATED) 2022-01-05 13:09:00 MoulinCory [facility]US 2022-01-05 09:06:00 MoulinCory [facility] MAGNESIUM 2022-01-05 09:06:00 Moulin, [facility] BASIC METABOLIC PANEL 2022-01-05 09:06:00 Jaye [facility] (NA, K, CL, CO2, GLUCOSE, Medica l Branch BUN, CREATININE, CA) CBC WITH DIFF 2022-01-05 09:06:00 Jaye [facility] POCT GLUCOSE (AUTOMATED) 2022-01-05 05:07:00 Moulin, Cory [facility] POCT GLUCOSE (AUTOMATED) 2022-01-04 22:10:00 Moulin, Cory [facility] POCT GLUCOSE (AUTOMATED) 2022-01-04 17:14:00 Moulin, Cory [facility] POCT GLUCOSE (AUTOMATED) 2022-01-04 11:15:00 MoCory lucio [facility] PHOSPHORUS 2022-01-04 10:42:00 Jenifer [facility] MAGNESIUM 2022-01-04 10:42:00 Jenifer [facility] BASIC METABOLIC PANEL 2022-01-04 10:42:00 Jenifer [facility] (NA, K, CL, CO2, GLUCOSE, Medica l Branch BUN, CREATININE, CA) VANCOMYCIN TROUGH 2022-01-04 10:42:00 Jaye [facility] CBC WITH DIFF 2022-01-04 10:42:[address] [facility] CT ABDOMEN PELVIS W 2022-01-04 09:03:00 Shahla Andrade [facility] POCT GLUCOSE (AUTOMATED) 2022-01-04 06:25:00 MoulinCory [facility] POCT GLUCOSE (AUTOMATED) 2022-01-03 21:21:00 MoCory lucio [facility] XR CHEST 1 VW 2022-01-03 20:48:16 Shahla Andrade [facility] POCT GLUCOSE (AUTOMATED) 2022-01-03 16:50:00 MoulinCory [facility] POCT GLUCOSE (AUTOMATED) 2022-01-03 12:59:00 Moulin, Cory [facility] POCT GLUCOSE (AUTOMATED) 2022-01-03 10:17:00 Moulin, Cory [facility] AC PANEL 20 + LACTIC ACID 2022-01-03 10:15:00 MoulinCory [facility] MAGNESIUM 2022-01-03 08:54:00 MoulinCory [facility] BASIC METABOLIC PANEL 2022-01-03 08:54:00 MoCory lucio [facility] (NA, K, CL, CO2, GLUCOSE, Medica l Branch BUN, CREATININE, CA) CBC WITH DIFF 2022-01-03 08:54:00 MoulinCory [facility] POCT GLUCOSE (AUTOMATED) 2022-01-03 04:48:00 Moulin, [facility] POCT GLUCOSE (AUTOMATED) 2022-01-02 22:15:00 MoCory lucio [facility] SPUTUM CULTURE 2022-01-02 19:39:00 Abu Phillip [facility] XR KUB 2022-01-02 18:17:54 Abu Phillip [facility] XR KUB 2022-01-02 17:07:05 Abu Joe, [facility] POCT GLUCOSE (AUTOMATED) 2022-01-02 16:26:00 Cory Cee [facility] CT HEAD WO CONTRAST 2022-01-02 15:49:23 Meño Stack [facility] XR CHEST 1 VW 2022-01-02 13:45:16 Abjackie Stack [facility] AC PANEL 20 + LACTIC ACID 2022-01-02 12:37:00 Abu Phillip [facility] POCT GLUCOSE (AUTOMATED) 2022-01-02 12:26:00 MoCory lucio [facility] BASIC METABOLIC PANEL 2022-01-02 10:42:00 Cory Cee [facility] (NA, K, CL, CO2, GLUCOSE, Medica l Branch BUN, CREATININE, CA) BLOOD CULTURE SCREEN 2022-01-02 10:41:00 MoCory lucio [facility] CBC WITH DIFF 2022-01-02 10:41:00 Cory Cee [facility] GLYCOSYLATED HEMOGLOBIN 2022-01-02 10:41:00 Abu Atherah, Emreladio U [facility] BLOOD CULTURE SCREEN 2022-01-02 10:40:00 MoCory lucio [facility] RESPIRATORY CULTURE 2022-01-02 10:40:00 Monaveed, Cory [facility] URINE CULTURE 2022-01-02 10:39:00 MoCory lucio [facility] MRSA / MSSA SCREEN BY 2022-01-02 10:39:00 MoCory lucio [facility]+COOX+NA+K+GLU+CA2+ 2022-01-02 10:17:00 Cory Cee [facility] AC PANEL 21 + LACTIC ACID 2022-01-02 03:53:00 Erik [facility] XR CHEST 1 VW 2022-01-02 02:59:00 Erik [facility] URINALYSIS 2022-01-02 02:58:00 Erik [facility] LACTIC ACID WHOLE BLOOD 2022-01-02 02:26:00 Janis Valencia [facility] AC PANEL 21 + LACTIC ACID 2022-01-02 02:26:00 Erik [facility] BLOOD CULTURE SCREEN 2022-01-02 02:25:00 Janis Valencia [facility] TROPONIN I 2022-01-02 02:25:00 Erik [facility] COMP. METABOLIC PANEL 2022-01-02 02:25:00 [id number] CBC WITH DIFF 2022-01-02 02:25:00 Erik [facility] N-TERMINAL PRO-BNP 2022-01-02 02:25:00 Janis Valencia [facility] HB ECG ROUTINE & RHYTHM 2022-01-02 02:14:14 LashondaquincyjordonJanis Un [facility] HOSPITAL ADMISSION 2022-01-01 05:01:00 Doctor Unasssheila, [facility] 1 VW 2021-12-09 04:15:00 Duke Velazquez [facility] LIPASE 2021-12-09 03:52:00 Duke Velazquez [facility] TROPONIN I 2021-12-09 03:52:00 Duke Velazquez [facility] COMP. METABOLIC PANEL 2021-12-09 03:52:00 Duke Velazquez [facility] ([id number]) [facility] CBC WITH DIFF 2021-12-09 03:52:00 Duke Velazquez [facility] N-TERMINAL PRO-BNP 2021-12-09 03:52:00 Duke Velazquez [facility] CONSENT/REFUSAL FOR 2021-12-09 03:24:16 Doctor Unassigned, [facility] DIAGNOSIS AND TREATMENT [facility] POCT GLUCOSE (AUTOMATED) 2021-09-23 17:13:00 Paula Rowe [facility] POCT GLUCOSE (AUTOMATED) 2021-09-23 13:53:00 Paula Rowe [facility] BASIC METABOLIC PANEL 2021-09-23 10:22:00 Laurie Wilkins [facility] (NA, K, CL, CO2, GLUCOSE, Medica l Branch BUN, CREATININE, CA) CBC WITHOUT DIFF 2021-09-23 10:22:00 Laurie Wilkins [facility] POCT GLUCOSE (AUTOMATED) 2021-09-23 10:12:00 Paula Rowe [facility] POCT GLUCOSE (AUTOMATED) 2021-09-23 05:38:00 Paula Rowe [facility] POCT GLUCOSE (AUTOMATED) 2021-09-23 02:14:00 Rowe, Paula [facility] POCT GLUCOSE (AUTOMATED) 2021-09-22 22:20:00 Paula Rowe [facility] POCT GLUCOSE (AUTOMATED) 2021-09-22 19:52:00 Paula Rowe [facility] TRANSTHORACIC ECHO (TTE) 2021-09-22 18:44:47 Cabrera Armstrong [facility] COMPLETE W/ CONTRAST Medical [facility] POCT GLUCOSE (AUTOMATED) 2021-09-22 18:07:00 Paula Rowe [facility] EKG-12 LEAD 2021-09-22 13:45:05 Jae Paula [facility] POCT GLUCOSE (AUTOMATED) 2021-09-22 13:20:00 Paula Rowe [facility] PNEUMOCOCCAL ANTIGEN 2021-09-22 12:39:00 Cabrera Armstrong [facility] MRSA / MSSA SCREEN BY 2021-09-22 12:34:[address] [facility] BY PCR 2021-09-22 12:34:00 Nikos Pugh [facility] GALV ONLY - INFLUENZA A B 2021-09-22 12:33:00 Cabrrea Armstrong [facility] RSV [facility] COVID-19 (MOLECULAR 2021-09-22 12:33:00 Cecilia Jones [facility] TESTING [facility] NUCLEIC ACID AMPLIFICATION) SPUTUM CULTURE 2021-09-22 12:30:00 Nathaniel [facility] AC PANEL 20 + LACTIC ACID 2021-09-22 12:16:00 Cabrera Armstrong [facility] PHOSPHORUS 2021-09-22 12:15:00 Nathaniel [facility] MAGNESIUM 2021-09-22 12:15:00 Nathaniel [facility] HEPATIC FUNCTION PANEL 2021-09-22 12:15:00 Nathaniel [facility] ([id number]) (ALB,T.PRO,BILI Medical Branch T,BU/BC,ALT,AST,ALK PHOS) BASIC METABOLIC PANEL 2021-09-22 12:15:[address] [facility] (NA, K, CL, CO2, GLUCOSE, Medica l Branch BUN, CREATININE, CA) CBC WITH DIFF 2021-09-22 12:15:00 Nathaniel [facility] PROTHROMBIN TIME / INR 2021-09-22 12:15:00 Nathaniel [facility] BLOOD CULTURE SCREEN 2021-09-22 12:13:00 Cabrera Armstrong [facility] AC PANEL 20 + LACTIC ACID 2021-09-22 06:41:00 Paula Rowe [facility] TROPONIN I 2021-09-22 06:36:00 Paula Rowe [facility] COMP. METABOLIC PANEL 2021-09-22 06:36:00 Paula Rowe [facility] ([id number]) Medical Branch CBC WITH DIFF 2021-09-22 06:36:00 Paula Rowe [facility] GLYCOSYLATED HEMOGLOBIN 2021-09-22 06:36:00 Nathaniel [facility] (A1C) [facility] PROTHROMBIN TIME / INR 2021-09-22 06:36:00 Paula Rowe [facility] ACTIVATED PARTIAL 2021-09-22 06:36:00 Paula Rowe [facility] PRO-BNP 2021-09-22 06:36:00 Paula Rowe [facility] COVID-19 (ID NOW RAPID 2021-09-22 06:36:00 Paula Rowe [facility] TESTING) Medical Branch LAB ONLY COVID 2021-09-22 06:36:00 Paula Rowe [facility] INTERPRETATION [facility] XR CHEST 1 VW 2021-09-22 06:26:48 Paula Rowe [facility] HB ECG ROUTINE & RHYTHM 2021-09-22 06:17:39 Paula Rowe [facility] STRIP [facility] HOSPITAL ADMISSION 2021-09-22 06:01:00 Doctor Arturo, [facility] CONSENT/REFUSAL FOR 2021-09-22 06:00:03 Doctor Unazeke, [facility] DIAGNOSIS AND TREATMENT [facility] DME/SUPPLY JUSTIFICATION 2021-08-01 06:01:00 Doctor Unassigned, [facility] Plan of Care Planned Activity Planned Date Details Comments Source Future Scheduled 2024-07-31 DTAP/TDAP/TD VACCINES ([address] [facility] 00:00:00 - Td or Tdap) [code = Medica l Center DTAP/TDAP/TD VACCINES (2 - Td or Tdap)] Future Scheduled 2024-07-31 DTAP/TDAP/TD VACCINES ([address] [facility] 00:00:00 - Td or Tdap) [code = Medica l Center DTAP/TDAP/TD VACCINES (2 - Td or Tdap)] Future Scheduled 2024-07-31 DTAP/TDAP/TD VACCINES ([address] [facility] 00:00:00 - Td or Tdap) [code = Medica l Center DTAP/TDAP/TD VACCINES (2 - Td or Tdap)] Future Scheduled 2023-11-[address] [facility] 00:00:00 Counseling and Screening Med ical Center (12+) [code = Tobacco Cessation Counseling and Screening (12+)] Future Scheduled 2023-11-[address] [facility] 00:00:00 Counseling and Screening Med ical Center (12+) [code = Tobacco Cessation Counseling and Screening (12+)] Future Scheduled 2023-11-[address] [facility] 00:00:00 Counseling and Screening Med ical Center (12+) [code = Tobacco Cessation Counseling and Screening (12+)] Future Scheduled 2023-03-26 INFLUENZA VACCINE (Season [facility] 00:00:00 Ended) [code = INFLUENZA Med ical Center VACCINE (Season Ended)] Future Scheduled 2023-03-26 Influenza Vaccine (#1) [facility]00 [code = Influenza Vaccine Me dical Center (#1)] Future Scheduled 2023-03-26 INFLUENZA VACCINE (Season [facility] 00:00:00 Ended) [code = INFLUENZA Med ical Center VACCINE (Season Ended)] Future Scheduled 2022-07-[address] [facility] 00:00:00 (12+) [code = DEPRESSION Med ical Center SCREENING (12+)] Future Scheduled 2022-07-[address] [facility] 00:00:00 (12+) [code = DEPRESSION Med ical Center SCREENING (12+)] Future Scheduled 2022-07-[address] [facility] 00:00:00 (12+) [code = DEPRESSION Med ical Center SCREENING (12+)] Future Scheduled 2018-06-08 PNEUMOCOCCAL VACCINE 0-[address] [facility] 00:00:00 YRS (2 - PCV) [code = Medica l Center PNEUMOCOCCAL VACCINE 0-64 YRS (2 - PCV)] Future Scheduled 2018-06-08 PNEUMOCOCCAL VACCINE 0-[address] [facility] 00:00:00 YRS (2 - PCV) [code = Medica l Center PNEUMOCOCCAL VACCINE 0-64 YRS (2 - PCV)] Future Scheduled 2018-06-08 Pneumococcal Vaccine: [facility] 00:[facility]:00 0-64 Years (2 - PCV) Medical Center [code = Pneumococcal Vaccine: 0-64 Years (2 - PCV)] Future Scheduled 2011 SHINGLES VACCINES ([address] [facility] 00:00:00 2) [facility] Future Scheduled 2011 SHINGLES VACCINES ([address] [facility] 00:00:00 2) [facility] 2)] Future Scheduled 2011 SHINGLES VACCINES ([address] [facility] 00:00:00 2) [facility] ([facility] of 2)] Future Scheduled 2006 Lipid panel (procedure) [facility] 00:00:00 [code = 80277673] Medical Ce nter Future Scheduled 2006 Lipid panel (procedure) [facility] 00:00:00 [code = 89999263] Medical Ce nter Future Scheduled 2006 Lipid panel (procedure) [facility] 00:00:00 [code = 68431932] Medical Ce nter Future Scheduled 1982 Screening for malignant [facility] 00:00:00 neoplasm of cervix Medical C enter (procedure) [code = 300806650] Future Scheduled 1982 Screening for malignant [facility] 00:00:00 neoplasm of cervix Medical C enter (procedure) [code = 690287668] Future Scheduled 1982 Screening for malignant [facility] 00:00:00 neoplasm of cervix Medical C enter (procedure) [code = 678273091] Future Scheduled 1979 HEPATITIS C SCRE[facility]ING [facility]:00 [code = HEPATITIS C Medical Center SCREENING] Future Scheduled 1979 HEPATITIS C [facility]:00 [code = HEPATITIS C Medical Center SCREENING] Future Scheduled 1979 HEPATITIS C [facility]CRE[facility]:00 [code = HEPATITIS C Medical Center SCREENING] Future Scheduled [address] Human [address] [facility] 00:00:00 virus screening Medical Cent er (procedure) [code = 290252630] Future Scheduled 1962-03-10 COVID-19 VACCINE (#1) [facility]00 [code = COVID-19 VACCINE Med ical Center (#1)] Future Scheduled 1962-03-10 COVID-19 VACCINE (#1) [facility]:00:00 [code = COVID-19 VACCINE Med ical Center (#1)] Future Scheduled 1962-03-10 COVID-19 VACCINE (#1) [facility]:00:00 [code = COVID-19 VACCINE Med ical Center (#1)] Future Scheduled 1961 Screening for malignant [facility] 00:00:00 neoplasm of breast Medical C enter (procedure) [code = 383164654] Future Scheduled 1961 CT Colonography (combo) [facility] 00:00:00 [code = CT Colonography [facility] (combo)] Future Scheduled 1961 Screening for malignant [facility] 00:00:00 neoplasm of colon Medical Ce nter (procedure) [code = 910654218] Future Scheduled 1961 Screening for malignant [facility] 00:00:00 neoplasm of colon Medical Ce nter (procedure) [code = 527045313] Future Scheduled 1961 Screening for malignant [facility] 00:00:00 neoplasm of colon Medical Ce nter (procedure) [code = 006480464] Future Scheduled 1961 Screening for malignant [facility] 00:00:00 neoplasm of colon Medical Ce nter (procedure) [code = 967528629] Future Scheduled 1961 Sigmoidoscopy [code = [facility] Sigmoidoscopy] Medical Cente r Future Scheduled 1961 Screening for malignant [facility] 00:00:00 neoplasm of breast Medical C enter (procedure) [code = 580636766] Future Scheduled 1961 CT Colonography (combo) [facility] 00:00:00 [code = CT Colonography [facility] (combo)] Future Scheduled 1961 Screening for malignant [facility] 00:00:00 neoplasm of colon Medical Ce nter (procedure) [code = 467035810] Future Scheduled 1961 Screening for malignant [facility] 00:00:00 neoplasm of colon Medical Ce nter (procedure) [code = 069648753] Future Scheduled 1961 Screening for malignant [facility] 00:00:00 neoplasm of colon Medical Ce nter (procedure) [code = 142198575] Future Scheduled 1961 Screening for malignant [facility] 00:00:00 neoplasm of colon Medical Ce nter (procedure) [code = 271625044] Future Scheduled 1961 Sigmoidoscopy [code = [facility] Sigmoidoscopy] Medical Cente r Future Scheduled 1961 Screening for malignant [facility] 00:00:00 neoplasm of breast Medical C enter (procedure) [code = 124189884] Future Scheduled 1961 CT Colonography (combo) [facility] 00:00:00 [code = CT Colonography [facility] (combo)] Future Scheduled 1961 Screening for malignant [facility] 00:00:00 neoplasm of colon Medical Ce nter (procedure) [code = 955515874] Future Scheduled 1961 Screening for malignant [facility] 00:00:00 neoplasm of colon Medical Ce nter (procedure) [code = 767014306] Future Scheduled 1961 Screening for malignant [facility] 00:00:00 neoplasm of colon Medical Ce nter (procedure) [code = 489308616] Future Scheduled 1961 Screening for malignant [facility] 00:00:00 neoplasm of colon Medical Ce nter (procedure) [code = 406840468] Future Scheduled 1961 Sigmoidoscopy [code = [facility] Sigm[facility]oscopy] Medical Cente r Encounters Start End Encounter Admission Attending Care Care Encounter Source Date/Time Date/Time Type Type Clinicians Facility Department ID 2022-12-29 Outpatient [facility] [id number] [place] 11:59:53 [id number] [facility] 2022-12-22 Outpatient [facility] [id number] [place] 16:08:29 [id number] [facility] 2022-12-11 Inpatient R LV LIZ [facility] [id number] Univers 00:00:00 LV LIZ it y of [facility] 2022-08-05 Emergency [facility] [id number] Univers 00:34:25 ity of [facility] 2022-12-29 2022-12-29 Outpatient [facility] [id number] [place] 15:00:00 15:00:00 [facility] 2022-12-22 2022-12-22 Orders Doctor KATELYN 1.2.840.114 [id number] Univers 00:00:00 00:00:00 Only Unassigned, JACKIE 350.1.13.10 ity of [place] [facility] 4.2.7.2.686 Compa as [phone] [facility] 009 Branch 2022-12-11 2022-12-11 Transition [place] Arrieta 1.2.840.114 [id number] Univers 00:00:00 00:00:00 of Care Alessandra JEFFREY 350.1.13.10 i ty of [place] [id number] [facility] 403 Branch 2022-12-07 2022-12-10 Inpatient U LV LIZ [facility] MPU [id number] Univers 11:55:00 15:30:00 LV LIZ i ty of [facility] 2022-12-07 2022-12-10 [facility] ALEXSANDRA Liz 1.2.840.114 [id number] Univers 11:55:00 15:30:00 Encounter Lv MEJIA 350.1.13.10 ity of [facility] 4.2.7.2.686 Compa as [phone] [facility] 086 Branch 2022-11-25 2022-11-26 Hospital Tracy Johnson [facility] [id number] 02:46:00 14:00:00 [facility]22-11-25 2022-11-26 [facility] FifiTracy peck [facility] [id number] [facility] 02:46:00 14:00:00 [facility] 2022-11-25 2022-11-26 Inpatient ER SORAYA GIANLUCA Internal [id number] [facility] 02:46:00 14:00:00 [facility] 2022-11-25 2022-11-25 Travel [facility] [id number] [facility] 00:[facility] 00:00:00 [facility] 2022-11-25 2022-11-25 Travel [facility] [id number] [facility] 00:[facility] 00:00:00 [facility] 2022-09-09 2022-09-09 Emergency [facility] E[facility] [id number] Univers 06:30:00 08:46:00 JOSLYN itcynthia [facility] 2022-09-09 2022-09-09 Emergency [facility] 1.2.840.114 [id number] Univers 06:30:00 08:46:00 Joslyn BOYD 350.1.13.10 ity of [place] [id number] [facility] 084 Branch 2022-08-12 2022-08-12 Transition [place] Arri[place] 1.2.840.114 [id number] Univers 00:00:00 00:00:00 of Care Alessandra JEFFREY 350.1.13.10 i ty [place] [id number] [facility] 403 Branch 2022-08-05 2022-08-10 Inpatient U CARLOS [facility] ROBLES [id number] Univers 00:39:00 17:00:00 COREY shipman [facility] 2022-08-05 2022-08-10 [facility] Jonas Hernandez [facility] 1.2.840.11 [id number] Univers 00:39:00 17:00:00 Encounter Corey Gonzalez DEB 350.1.13.10 ity of [place] 4.2.7.2.686 [facility] [id number] [address] 2022-06-04 2022-06-04 Emergency X [facility] ERT [id number] Univers 20:54:00 23:53:00 GEN shipman [facility] 2022-06-04 2022-06-04 Emergency [facility] 1.2.685.831 [id number] Univers 20:54:00 23:53:00 Gen BOYD 350.1.13.10 i ty of [place] 4.2.7.2.686 [facility] [id number] [address] 2022-05-12 2022-05-13 Emergency [facility] ERT [id number] Univers 22:51:00 03:10:00 PAULA [facility] 2022-05-12 2022-05-13 Emergency [facility] 1.2.813.163 [id number] Univers 22:51:00 03:10:00 Paula BOYD 350.1.13.10 i ty of [place] 4.2.7.2.686 [facility] [id number] [address] 2022-05-02 2022-05-02 Emergency X Sanjay HENRY [facility] ERT [id number] Univers 00:17:00 02:29:00 ity [facility] 2022-05-02 2022-05-02 Emergency Sanjay Henry [facility] 1.2.840.114 [id number] Univers 00:17:00 02:29:00 Janel BOYD 350.1.13.10 i ty of [place] 4.2.7.2.686 [facility] [id number] [address] 2022-04-28 2022-04-29 Emergency [facility] ERT [id number] Univers 21:41:00 00:50:00 PAULA shipman [facility] 2022-04-28 2022-04-29 Emergency [facility] 1.2.988.084 [id number] Univers 21:41:00 00:50:00 Paula BOYD 350.1.13.10 i ty of [place] 4.2.7.2.686 [place] [facility] [phone] [place] [address] Branch 2022-03-02 2022-03-02 Transition [place] 1.2.840.114 [id number] Univers 00:00:00 00:00:00 of Care Alessandra EMY 350.1.13.10 i ty [place] [id number] [address] 2022-02-20 2022-02-27 [facility] [id number] Univers 14:58:00 17:54:00 [facility] umberto o [facility] 2022-02-20 2022-02-27 [facility] Paula Rowe 1.2.840.1 14 [id number] Univers 14:58:00 17:54:00 Encounter Kevin Lebron 350.1.13.[address] [facility] 4.2.7.2. 686 [place] [id number] [address] 2022-02-18 2022-02-18 Transition [place] 1.2.840.114 [id number] Univers 00:00:00 00:00:00 of Care Alessandra JEFFREY 350.1.13.10 [place] [id number] [address] 2022-02-11 2022-02-17 Inpatient X SCARLETT [facility] [id number] Univers 19:55:00 18:10:00 VALERIANO shipman [facility] 2022-02-11 2022-02-17 [facility] Paula Rowe [facility] 1.2.840.1 14 [id number] Univers 19:55:00 18:10:00 Encounter Valeriano Pantoja HEALTH 350.1.13.1 0 ity of [place] 4.2.7.2.686 [facility] [id number] [address] ([facility]) 2022-02-02 2022-02-02 [place] 1.2.840.114 [id number] Univers 00:00:00 00:00:00 of Care Alessandra JEFFREY 350.1.13.10 i ty of [place] 4.2.7.2.686 [facility] [id number] [facility] 403 [address] 2022-01-27 2022-01-31 Inpatient X MARY [facility] ROBLES [id number] Univers 20:40:00 13:51:00 ADNAN itUT [facility] 2022-01-27 2022-01-31 Hospital Paula Rowe [facility] 1.2.840.1 14 [id number] Univers 20:40:00 13:51:00 Encounter MaryJonas [facility] 350.1.13.10 ity [facility] 4.2.7.2.686 [facility] [id number] [facility] 080 Branch 2022-01-28 2022-01-28 Telephone Saloni [facility] 1.2.840.114 [id number] Univers 00:00:00 00:00:00 Layne HEALTH 350.1.13.10 it y of [place] 4.2.7.2.686 [facility] - [id number] Med ical [facility] 144 Branch 2022-01-13 2022-01-13 [place] 1.2.840.114 [id number] Univers 00:00:00 00:00:00 of Care Alessandra JEFFREY 350.1.13.10 i ty of [place] 4.2.7.2.686 [facility] [id number] [facility] 403 [address] 2022-01-12 2022-01-12 Emergency X JESSENIA [facility] ERT [id number] Univers 17:23:00 22:19:00 JOSLYN ity [facility] 2022-01-12 2022-01-12 Emergency [facility] 1.2.840.114 [id number] Univers 17:23:00 22:19:00 Joslyn BOYD 350.1.13.10 ity of [facility] 4.2.7.2.686 [facility] [id number] [place] 678424 Branch 2022-01-01 2022-01-12 Inpatient X [facility] ROBL[place] [id number] Univers 21:18:00 14:06:00 umberto STACK [facility] 2022-01-01 2022-01-12 [facility] Janis Valencia [facility] 1 .2.840.114 [id number] Univers 21:18:00 14:06:00 Encounter Cory Cee [facility] 350.1.13.10 ity of Abjackie DiazShahla go [place] 4.2.7.2.686 [facility] [id number] [place] [address] ([facility]) 2021-12-08 2021-12-09 Emergency X FLORIDALMA [facility] ERT [id number] Univers 22:28:00 00:58:00 FOLUSHO ity of [facility] 2021-12-08 2021-12-09 Emergency [facility] 1.2.840.114 [id number] Univers 22:28:00 00:58:00 Duke BOYD 350.1.13.10 ity of [place] 4.2.7.2.686 [facility] [id number] [place] 678424 Branch 2021-09-24 2021-09-24 Transition [place] Brewer 1.2.840.114 [id number] Univers 00:00:00 00:00:00 of Care Patria JEFFREY 350.1.13.10 it[place] of [place] 4.2.7.2.686 [facility] [id number] [facility] 403 Branch 2021-09-22 2021-09-23 Inpatient U ENE GIVENS [facility] MPU [id number] Univers 00:05:00 15:03:00 ENE GIVENS i ty of [facility] 2021-09-22 2021-09-23 [facility] Paula Rowe 1.2.840.1 14 [id number] Univers 00:05:00 15:03:00 Encounter Ene Givens 350.1.13.10 ity of HOSPITAL 4.2.7.2.686 Compa as [id number] [facility] 085 Branch 2021-08-01 2021-08-01 Orders Doctor KATELYN 1.2.840.114 [id number] Univers 00:00:00 00:00:00 Only Unassigned, JACKIE 350.1.13.10 [place] of [place] [facility] 4.2.7.2.686 Compa as [id number] [facility] 009 Branch 2021-07-23 2021-07-23 Office [facility] 1.2.840.114 [id number] Univers 14:15:00 14:30:00 Visit [facility] 350.1.13.10 it y of [place] 4[place]2.7.2.686 [place] [facility] - [id number] Med [facility] 144 [address] 2021-07-23 2021-07-23 Outpatient [facility] [id number] Univers 14:15:00 14:15:00 [facility] 2021-07-23 2021-07-23 Outpatient [facility] [id number] Univers 14:15:00 14:15:00 [facility] 2021-07-23 2021-07-23 Telephone [facility] 1.2.840.114 [id number] Univers 00:00:00 00:00:00 [facility] REJI 350.1.13.10 i ty of [facility] [place].2.[place] [id number] [facility] 144 [address] 2021-06-25 2021-06-26 Emergency [facility] ERT [id number] Univers 21:58:00 03:17:00 APARNA shipman [facility] 2021-06-25 2021-06-26 [facility] 1.2.782.965 [id number] Univers 21:58:00 03:17:00 Aparna BOYD 350.1.13.10 [facility] 4.2.7.2.686 [facility] [id number] [place] 678424 Branch 2021-02-19 2021-02-19 Outpatient [facility] [id number] Univers 00:00:00 00:00:00 CAMILA [facility] 2020-02-01 2020-02-01 Outpatient Andrea [facility] [id number] Univers 00:00:00 00:00:00 CAMILA [facility] 2019-09-01 2019-09-01 Outpatient Andrea LUNA, [facility] [id number] Univers 14:41:55 23:59:00 GAB [facility] 2019-08-04 2019-08-04 Outpatient Andrea CALDERON, [facility] [id number] Univers 17:13:44 23:59:00 JUNE [facility] Results Test Description Test Time Test Comments Results Result Comments Source POCT GLUCOSE (AUTOMATED) 2022-12-10 16:56:22 Test Item Value Reference Range Interpretation Comme nts POCT GLU (test code = 4985080642) 97 mg/dL 70-110 Lab Interpretation (test code = 12653-5) Normal [facility]2022-12-10 12:47:14 Test Item Value Reference Range Interpretation Comments POCT GLU (test code = 8454640087) 109 mg/dL 70-110 Lab Interpretation (test code = Normal 13050-4) [facility] (NA, K, CL, CO2, GLUCOSE, BUN, CREATININE, CA)2022-12-10 10:21:18 Test Item Value Reference Range Interpretation Comments NA (test code = 136 mmol/L 135-145 3847252175) K (test code = 3.4 mmol/L 3.5-5.0 L 4442017853) CL (test code = 96 mmol/L 98-108 L 1996315112) CO2 TOTAL (test code = 32 mmol/L 23-31 H 2505478069) AGAP (test code = 8 2-16 5070437880) BUN (test code = 24 mg/dL 7-23 H 7227114222) GLUCOSE (test code = 93 mg/dL 70-110 8577738906) CREATININE (test code = 0.99 mg/dL 0.50-1.04 3799922176) CALCIUM (test code = 8.7 mg/dL 8.6-10.6 6190932987) eGFR (test code = 57.0 mL/min/1.73m2 0584417360) JENNIFFER (test code = JENNIFFER) Association of [...] tests). Lab Interpretation Abnormal (test code = 79378-0) [facility]2023-05-18 10:21:18 Test Item Value Reference Range Interpretation Comments MAGNESIUM (test code = 5907091633) 2.1 mg/dL 1.7-2.4 Lab Interpretation (test code = Normal 49739-3) [facility] WITHOUT [id number] 09:50:09 Test Item Value Reference Range Interpretation Comments WBC (test code = 6690-2) 10.47 See_Comment [A utomated message] The system [employer] generated this result transmit alden reference range : 4.30 - 11.10 10*3/?L. The reference range was not used to interpret this result as normal/abnormal . RBC (test code = 789-8) 3.09 See_Comment L [Au tomated message] The system [employer] generated this result transmit alden reference range [...] 175 See_Comment [Au tomated message] The system [employer] generated this result transmit alden reference range : 166 - 358 10*3/?L. The reference range was not used to interpret this result as normal/abnormal . MPV (test code = 9.2 fL 9.5-12.9 L 69075-0) RDW-CV (test code = 14.6 % 12.0-15.5 788-0) RDW-SD (test code = 46.1 fL 39.0-49.9 36039-3) NRBC x10^3 (test code = See_Comment [Au tomated message] 6271411507) The system [employer] generated this result transmit alden reference range : 10*3/?L. The reference range was not used to interpret this result as normal/abnormal . NRBC/100 WBC (test code 0.0 See_Comment [Au tomated message] = 4904265630) The system [facility] generated this result transmit alden reference range : 0.0 - 10.0 /100 WBC s. The reference r josselyn was not used to interpret this result as normal/abnormal . IPF % (test code = 4870756864) Lab Interpretation (test Abnormal code = 17797-8) [facility] GLUCOSE (AUTOMATED)2022-12-10 09:40:29 Test Item Value Reference Range Interpretation Comments POCT GLU (test code = 3860827983) 103 mg/dL 70-110 Lab Interpretation (test code = Normal 46448-9) [facility] GLUCOSE (AUTOMATED)2022-12-10 05:27:42 Test Item Value Reference Range Interpretation Comments POCT GLU (test code = 5869389985) 87 mg/dL 70-110 Lab Interpretation (test code = Normal 86714-6) [facility] GLUCOSE (AUTOMATED)2022-12-10 01:22:34 Test Item Value Reference Range Interpretation Comments POCT GLU (test code = 5545744524) 91 mg/dL 70-110 Lab Interpretation (test code = Normal 63809-4) [facility] GLUCOSE (AUTOMATED)2022-12-09 21:07:38 Test Item Value Reference Range Interpretation Comments POCT GLU (test code = 1283985517) 105 mg/dL 70-110 Lab Interpretation (test code = Normal 93535-6) [facility] GLUCOSE (AUTOMATED)2022-12-09 17:09:56 Test Item Value Reference Range Interpretation Comments POCT GLU (test code = 5772918022) 132 mg/dL 70-110 H Lab Interpretation (test code = Abnormal 49294-8) [facility] GLUCOSE (AUTOMATED)2022-12-09 12:58:42 Test Item Value Reference Range Interpretation Comments POCT GLU (test code = 5664269307) 173 mg/dL 70-110 H Lab Interpretation (test code = Abnormal 80315-0) [facility] METABOLIC PANEL (NA, K, CL, CO2, GLUCOSE, BUN, CREATININE, CA)2022-12-09 09:53:39 Test Item Value Reference Range Interpretation Comments NA (test code = 135 mmol/L 135-145 2025964536) K (test code = 3.1 mmol/L 3.5-5.0 L 4093281543) CL (test code = 94 mmol/L 98-108 L 2159350803) CO2 TOTAL (test code = 33 mmol/L 23-31 H 8390617571) AGAP (test code = 8 2-16 5500726980) BUN (test code = 26 mg/dL 7-23 H 6594113647) GLUCOSE (test code = 127 mg/dL 70-110 H 0290084397) CREATININE (test code = 0.96 mg/dL 0.50-1.04 0877123646) CALCIUM (test code = 8.8 mg/dL 8.6-10.6 0243802832) eGFR (test code = 59.1 mL/min/1.73m2 8084083498) JENNIFFER (test code = JENNIFFER) Association of [...] tests). Lab Interpretation Abnormal (test code = 00694-5) [facility] WITHOUT [id number] 09:29:57 Test Item Value Reference Range Interpretation Comments WBC (test code = 6690-2) 8.67 See_Comment [A utomated message] The system [employer] generated this result transmit alden reference range : 4.30 - 11.10 10*3/?L. The reference range was not used to interpret this result as normal/abnormal . RBC (test code = 789-8) 2.99 See_Comment L [Au tomated message] The system [employer] generated this result transmit alden reference range [...] 182 See_Comment [Au tomated message] The system [facility] generated this result transmit alden reference range : 166 - 358 10*3/?L. The reference range was not used to interpret this result as normal/abnormal . MPV (test code = 9.4 fL 9.5-12.9 L 70714-0) RDW-CV (test code = 14.6 % 12.0-15.5 788-0) RDW-SD (test code = 46.5 fL 39.0-49.9 73090-3) NRBC x10^3 (test code = See_Comment [Au tomated message] 5722530853) The system [employer] generated this result transmit alden reference range : 10*3/?L. The reference range was not used to interpret this result as normal/abnormal . NRBC/100 WBC (test code 0.0 See_Comment [Au tomated message] = 9850375244) The system [facility] generated this result transmit alden reference range : 0.0 - 10.0 /100 WBC s. The reference r josselyn was not used to interpret this result as normal/abnormal . IPF % (test code = 2619770582) Lab Interpretation (test Abnormal code = 31908-5) [facility] + Lactic [id number] 09:09:40 Test Item Value Reference Range Interpretation Comments PH (test code = 2) 7.53 7.35-7.45 H PCO2 (test code = 40 See_Comment [Automate d 5302508894) message] The sy stem which generated this result transmitted reference range : 35 - 45 mmHg. The reference range was not used to interpret this result as normal/abnormal . PO2 (test code = 83 See_Comment [Automated 3177817417) message] The sy stem which generated this result transmitted reference range : 80 - 100 mmHg. The reference range was not used to interpret this result as normal/abnormal . HCO3 (test code = 33 See_Comment H [Automate d 2880870377) message] The sy stem which generated this result transmitted reference range : 22 - 26 mEq/L. The reference range was not used to interpret this result as normal/abnormal . BE (test code = 8.6 See_Comment H [Automated 7178793398) message] The sy stem which generated this result transmitted reference range : -3.0 - 3.0 mEq/ L. The reference r josselyn was not used to interpret this result as normal/abnormal . THB (test code = 12.3 g/dL 12.0-16.0 3048044141) %O2HB (test code = 97.1 % 94.0-99.0 7866749169) %COHB ART (test code = 0.5 % 0.0-1.5 2224738060) %METHB ART (test code = 0.0 % 0.4-1.5 L 6985121171) VOL%O2 ART (test code = 16.9 % 15.0-23.0 8805333650) NA (test code = 136 mmol/L 135-145 4468575145) K+ (test code = 3.2 mmol/L 3.5-5.0 L 4517234351) AC CA IONZ (test code = 4.60 mg/dL 4.50-5.30 1643956466) GLUCOSE (test code = 128 mg/dL 70-110 H 3735582961) LACTIC ACID (test code 0.96 mmol/L 0.50-2.20 = 9815207609) Lab Interpretation Abnormal (test code = 11800-2) [facility] GLUCOSE (AUTOMATED)2022-12-09 04:41:21 Test Item Value Reference Range Interpretation Comments POCT GLU (test code = 1785878348) 161 mg/dL 70-110 H Lab Interpretation (test code = Abnormal 25882-9) [facility] + Lactic [id number] 04:03:14 Test Item Value Reference Range Interpretation Comments PH (test code = 2) 7.50 7.35-7.45 H PCO2 (test code = 45 See_Comment [Automate d 3717770191) message] The sy stem which generated this result transmitted reference range : 35 - 45 mmHg. The reference range was not used to interpret this result as normal/abnormal . PO2 (test code = 89 See_Comment [Automated 6019877679) message] The sy stem which generated this result transmitted reference range : 80 - 100 mmHg. The reference range was not used to interpret this result as normal/abnormal . HCO3 (test code = 35 See_Comment H [Automate d 1097909510) message] The sy stem which generated this result transmitted reference range : 22 - 26 mEq/L. The reference range was not used to interpret this result as normal/abnormal . BE (test code = 10.0 See_Comment H [Automated 6757196474) message] The sy stem which generated this result transmitted reference range : -3.0 - 3.0 mEq/ L. The reference r josselyn was not used to interpret this result as normal/abnormal . THB (test code = 10.2 g/dL 12.0-16.0 L 8219521600) %O2HB (test code = 97.1 % 94.0-99.0 1730588646) %COHB ART (test code = 0.3 % 0.0-1.5 2735453136) %METHB ART (test code = 0.0 % 0.4-1.5 L 6803945839) VOL%O2 ART (test code = 14.1 % 15.0-23.0 L 0060453156) NA (test code = 135 mmol/L 135-145 6079716276) K+ (test code = 3.3 mmol/L 3.5-5.0 L 2432245210) AC CA IONZ (test code = 4.60 mg/dL 4.50-5.30 6849739299) GLUCOSE (test code = 162 mg/dL 70-110 H 0705312335) LACTIC ACID (test code 1.23 mmol/L 0.50-2.20 = 7358893237) Lab Interpretation Abnormal (test code = 17099-3) [facility] GLUCOSE (AUTOMATED)2022-12-09 00:36:59 Test Item Value Reference Range Interpretation Comments POCT GLU (test code = 3177500063) 141 mg/dL 70-110 H Lab Interpretation (test code = Abnormal 06755-6) [facility] GLUCOSE (AUTOMATED)2022-12-08 22:08:57 Test Item Value Reference Range Interpretation Comments POCT GLU (test code = 5864674350) 143 mg/dL 70-110 H Lab Interpretation (test code = Abnormal 16030-5) [facility] 17:00:53 Test Item Value Reference Range Interpretation Comments LIPASE (test code = 6112544828) 10 U/L 0-220 Lab Interpretation (test code = Normal 81211-4) [facility] GLUCOSE (AUTOMATED)2022-12-08 12:58:21 Test Item Value Reference Range Interpretation Comments POCT GLU (test code = 2985667523) 92 mg/dL 70-110 Lab Interpretation (test code = Normal 72017-3) [facility] WITHOUT [id number] 12:02:38 Test Item Value Reference Range Interpretation Comments WBC (test code = 6690-2) 11.45 See_Comment H [A utomated message] The system [employer] generated this result transmit alden reference range : 4.30 - 11.10 10*3/?L. The reference range was not used to interpret this result as normal/abnormal . RBC (test code = 789-8) 3.16 See_Comment L [Au tomated message] The system [employer] generated this result transmit alden reference range [...] 254 See_Comment [Au tomated message] The system [employer] generated this result transmit alden reference range : 166 - 358 10*3/?L. The reference range was not used to interpret this result as normal/abnormal . MPV (test code = 9.8 fL 9.5-12.9 79085-9) RDW-CV (test code = 14.1 % 12.0-15.5 788-0) RDW-SD (test code = 43.3 fL 39.0-49.9 13167-7) NRBC x10^3 (test code = See_Comment [Au tomated message] 6099674924) The system [employer] generated this result transmit alden reference range : 10*3/?L. The reference range was not used to interpret this result as normal/abnormal . NRBC/100 WBC (test code 0.0 See_Comment [Au tomated message] = 0899738429) The system [employer] generated this result transmit alden reference range : 0.0 - 10.0 /100 WBC s. The reference r josselyn was not used to interpret this result as normal/abnormal . IPF % (test code = 9952952237) Lab Interpretation (test Abnormal code = 03584-4) [facility] METABOLIC PANEL (NA, K, CL, CO2, GLUCOSE, BUN, CREATININE, CA)2022-12-08 10:10:30 Test Item Value Reference Range Interpretation Comments NA (test code = 138 mmol/L 135-145 6970387347) K (test code = 3.9 mmol/L 3.5-5.0 Slight 8867428433) hemolysis CL (test code = 93 mmol/L 98-108 L 6344326126) CO2 TOTAL (test code 38 mmol/L 23-31 H = 6351961952) AGAP (test code = 7 2-16 8456336628) BUN (test code = 29 mg/dL 7-23 H Slight 5724662829) hemolysis GLUCOSE (test code = 99 mg/dL 70-110 5784304051) CREATININE (test code 0.76 mg/dL 0.50-1.04 = 0869687292) CALCIUM (test code = 9.2 mg/dL 8.6-10.6 1349331757) eGFR (test code = 77.4 mL/min/1.73m2 7720255903) JENNIFFER (test code = JENNIFFER) Association of [...] tests). Lab Interpretation Abnormal (test code = 75830-5) [facility]10[facility]30 Test Item Value Reference Range Interpretation Comments MAGNESIUM (test code = 0026233309) 2.0 mg/dL 1.7-2.4 Lab Interpretation (test code = Normal 77419-9) [facility]22-12-08 09:02:24 Test Item Value Reference Range Interpretation Comments POCT GLU (test code = 7299202758) 129 mg/dL 70-110 H Lab Interpretation (test code = Abnormal 30217-6) [facility] GLUCOSE (AUTOMATED)2022-12-08 04:46:08 Test Item Value Reference Range Interpretation Comments POCT GLU (test code = 4326831380) 201 mg/dL 70-110 H Lab Interpretation (test code = Abnormal 34457-4) [facility] GLUCOSE (AUTOMATED)2022-12-08 01:03:54 Test Item Value Reference Range Interpretation Comments POCT GLU (test code = 8485162856) 236 mg/dL 70-110 H Lab Interpretation (test code = Abnormal 11577-1) [facility] GLUCOSE (AUTOMATED)2022-12-07 22:01:17 Test Item Value Reference Range Interpretation Comments POCT GLU (test code = 1029012637) 320 mg/dL 70-110 H Lab Interpretation (test code = Abnormal 29254-6) [facility] Arterial Blood Gas.2022-12-07 18:09:39 Test Item Value Reference Range Interpretation Comments PH (test code = 2) 7.37 7.35-7.45 PCO2 (test code = 69 See_Comment H [Automate d message] 0342829975) The system [employer] generated this result transmitted ref erence range: 35 - 45 mmHg. The reference r josselyn was not used to interpret this result as normal/abnor mal. PO2 (test code = 380 See_Comment H [Automated message] 2350144505) The system [employer] generated this result transmitted ref erence range: 80 - 100 mmHg. The reference r josselyn was not used to interpret this result as normal/abnor mal. HCO3 (test code = 39 See_Comment H [Automate d message] 2643342300) The system [employer] generated this result transmitted ref erence range: 22 - 26 mEq/L. The reference r josselyn was not used to interpret this result as normal/abnor mal. BE (test code = 10.9 See_Comment H [Automated message] 8237074611) The system [employer] generated this result transmitted ref erence range: -3.0 - 3 .0 mEq/L. The refe rence range was not u sed to interpret this result as normal/abnor mal. Lab Interpretation (test Abnormal code = 33277-8) [facility] [id number] 10:39:20 Test Item Value Reference Range Interpretation Comments HEMOGLOBIN A1C 8.0 % See_Comment H [Automated m essage] ELECTROPHORESIS (RAMYAProbki Iz okna) The system which (test code = 3811) generated this result transmitted ref erence range: <=5.6%. The reference range was not used to int erpret this result as normal/abnormal . "The A1c is measured using a NGSP-certified method. HbA1c value equal to or greater than 6.5% as thediagnosis cutoff for diabetes. An HbA1c value of 5.7- 6.4% indicates increased risk for diabetes (prediabetes)."Bike Mechanic ID - ADMOperator ID - ADMPOC-Glucose [id number] 10:22:15 Test Item Value Reference Range Interpretation Comments POC-Glucose Meter (test 205 mg/dL 70-110 H : TE STED AT [facility] code = 1538) [address] [place] [address], [facility] 30: Bike Mechanic/Techni parag ID = [id number] for COWAN, VANESS A Lab Interpretation (test Abnormal code = 98519-1) [facility] [id number] 10:22:15 Test Item Value Reference Range Interpretation Comments POC-Glucose Meter (test 205 mg/dL 70-110 H : TE STED AT [facility] code = 1538) [address] [place] [address], 770 30: Bike Mechanic/Techni parag ID = [id number] for COWAN, VANESS A Lab Interpretation (test Abnormal code = 34079-6) [facility] [id number] 10:22:15 Test Item Value Reference Range Interpretation Comments POC-Glucose Meter (test 205 mg/dL 70-110 H : TE STED AT [facility] code = 1538) [address] [place] [address], 770 30: Bike Mechanic/Techni parga ID = [id number] for COWAN, VANESS A Lab Interpretation (test Abnormal code = 92480-3) [facility]OD[facility] [id number] 10:22:15 Test Item Value Reference Range Interpretation Comments POC-GLUCOSE METER 205 mg/dL 70-110 H : TESTED A T [facility] 6720 (BEAKER) (test code = IRVIN Mendez [facility], 1538) [address]: Bike Mechanic/Techni parag ID = [id number] for MISHA CHANDRA RAD, CHEST, 1 VIEW, NON [id number] 10:14:00Reason for exam:->sobShould this be performed at the bedside?->Yes [facility] : 1960 Sex: FFINALREPORT INDICATION: sob COMPARISON: None TECHNIQUE: Single frontal view of the chest. FINDINGS: Lungs and pleura: Trace bilateral effusions and adjacent atelectasis.Heart and mediastinum: Normal heart size. Unremarkable mediastinal contours.Osseous structures: No acute abnormality.Other: Tracheostomy. Signed: Selma Niño Verified Date/Time: 11/26/2022 10:14:47 Reading Location: [address] Reading Room COMPREHENSIVE METABOLIC PANEL 2022-11-26 [...] not appl icable for dialysis patien ts Bike Mechanic ID - [id number] 06:58:15 Test Item Value Reference Range Interpretation Comments MAGNESIUM (BEAKER) (test code = 2.2 mg/dL 1.6-2.6 627) Bike Mechanic ID - ADMINCBC W/PLT COUNT & AUTO [id number] 06:28:22 Test Item Value Reference Range Interpretation [...] PERCENT (BEAKER) (test code = 2801) POCT-GLUCOSE [id number] 23:33:03 Test Item Value Reference Range Interpretation Comments POC-GLUCOSE METER 193 mg/dL 70-110 H : TESTED A T [facility] 67[address] (BEAKER) (test code = IRVIN TAMAYO [place], 1538) [address]: Bike Mechanic/Techni parag ID = [id number] for Af Sean rajan T4, [id number] 18:42:05 Test Item Value Reference Range Interpretation Comments FREE T4 (BEAKER) (test code = 655) 1.17 ng/dL 0.70-1.48 Bike Mechanic ID - DBTSH/FREE T4 IF [id number] 18:08:13 Test Item Value Reference Range Interpretation Comments THYROID STIMULATING HORMONE 0.100 uIU/mL 0.350-4.940 L (BEAKER) (test code = 772) Bike Mechanic ID - [id number] 17:37:29 Test Item Value Reference Range Interpretation Comments MAGNESIUM (BEAKER) 2.2 mg/dL 1.6-2.6 Specimen slightly (test code = 627) hemolyzed Bike Mechanic ID - ADMINCOMPREHENSIVE METABOLIC [id number] 17:37:29 Test Item Value Reference Range Interpretation [...] not appl icable for dialysis patien ts Bike Mechanic ID - ADMINB-TYPE NATRIURETIC FACTOR (BNP)2022-11-25 17:37:29 Test Item Value Reference Range Interpretation Comments B-TYPE NATRIURETIC PEPTIDE (BEAKER) 35 pg/mL 0-100 (test code = 700) Bike Mechanic ID - ADMINCBC W/PLT COUNT & AUTO [id number] 17:08:37 Test Item Value Reference Range Interpretation [...] PERCENT (BEAKER) (test code = 2801) POCT-GLUCOSE [id number] 16:44:23 Test Item Value Reference Range Interpretation Comments POC-GLUCOSE METER 192 mg/dL 70-110 H : TESTED A T [facility] 6720 (BEAKER) (test code = [facility], 1538) [address]: Bike Mechanic/Techni parag ID = [id number] for LAURA VIVEROS POCT-GLUCOSE [id number] 09:19:54 Test Item Value Reference Range Interpretation Comments POC-GLUCOSE METER 205 mg/dL 70-110 H : TESTED A T [facility] 6720 (BEAKER) (test code = [facility], 1538) [address]: Bike Mechanic/Techni parag ID = [id number] for AL VISHNUO ANNIA KELLYA POCT GLUCOSE (AUTOMATED)2022-08-10 20:26:18 Test Item Value Reference Range Interpretation Comments POCT GLU (test code = 5563118433) 178 mg/dL 70-110 H Lab Interpretation (test code = Abnormal 00997-3) [facility] GLUCOSE (AUTOMATED)2022-08-10 20:26:17 Test Item Value Reference Range Interpretation Comments POCT GLU (test code = 6165566673) 134 mg/dL 70-110 H Lab Interpretation (test code = Abnormal 83727-7) [facility] GLUCOSE (AUTOMATED)2022-08-10 09:35:52 Test Item Value Reference Range Interpretation Comments POCT GLU (test code = 3179463942) 240 mg/dL 70-110 H Lab Interpretation (test code = Abnormal 70283-4) [facility] GLUCOSE (AUTOMATED)2022-08-10 06:09:42 Test Item Value Reference Range Interpretation Comments POCT GLU (test code = 0344272910) 219 mg/dL 70-110 H Lab Interpretation (test code = Abnormal 03779-2) [facility] GLUCOSE (AUTOMATED)2022-08-10 02:27:50 Test Item Value Reference Range Interpretation Comments POCT GLU (test code = 7780790646) 264 mg/dL 70-110 H Lab Interpretation (test code = Abnormal 40539-8) [facility] GLUCOSE (AUTOMATED)2022-08-09 22:32:46 Test Item Value Reference Range Interpretation Comments POCT GLU (test code = 4550784903) 327 mg/dL 70-110 H Lab Interpretation (test code = Abnormal 15790-0) [facility] GLUCOSE (AUTOMATED)2022-08-09 13:19:52 Test Item Value Reference Range Interpretation Comments POCT GLU (test code = 5798616892) 196 mg/dL 70-110 H Lab Interpretation (test code = Abnormal 98121-0) [facility] 12:10:11 Test Item Value Reference Range Interpretation Comments MAGNESIUM (test code = 0114456637) 2.5 mg/dL 1.7-2.4 H Lab Interpretation (test code = Abnormal 37329-3) [facility] METABOLIC PANEL (NA, K, CL, CO2, GLUCOSE, BUN, CREATININE, CA)2022-08-09 12:10:06 Test Item Value Reference Range Interpretation Comments NA (test code = 137 mmol/L 135-145 7606247499) K (test code = 4.3 mmol/L 3.5-5.0 7374262834) CL (test code = 101 mmol/L 98-108 3605819953) CO2 TOTAL (test code = 35 mmol/L 23-31 H 7623470913) AGAP (test code = 2-16 L 8011419585) BUN (test code = 22 mg/dL 7-23 9089390216) GLUCOSE (test code = 186 mg/dL 70-110 H 4360240507) CREATININE (test code = 0.82 mg/dL 0.50-1.04 6220853152) CALCIUM (test code = 8.2 mg/dL 8.6-10.6 L 1298664710) eGFR (test code = mL/min/1.73m2 4822259137) JENNIFFER (test code = JENNIFFER) Association of [...] tests). Lab Interpretation Abnormal (test code = 34579-1) [facility] 12:09:46 Test Item Value Reference Range Interpretation Comments PHOSPHORUS (test code = 9942598920) 3.2 mg/dL 2.5-5.0 Lab Interpretation (test code = Normal 23688-3) [facility] WITH [id number] 12:03:07 Test Item Value Reference Range Interpretation [...] RDW-SD (test code = 47.1 fL 39.0-49.9 88326-8) RDW-CV (test code = 14.6 % 12.0-15.5 788-0) PLT (test code = See_Comment [Automated 777-3) message] The sy stem which generated this result transmitted reference range : 166 - 358 10*3/ ?L. The reference r josselyn was not used to interpret this result as normal/abnormal . MPV (test code = 9.5 fL 9.5-12.9 21253-4) NRBC/100 WBC (test See_Comment [Automat ed code = 9274350926) message] The system which generated this result transmitted reference range : 0.0 - 10.0 /100 WBCs. The refer ence range was not u sed to interpret th is result as normal/abnormal . NRBC x10^3 (test code See_Comment [Auto mated = 3138253428) message] The s ystem which generated this result transmitted reference range : 10*3/?L. The reference range was not used to interpret this result as normal/abnormal . GRAN MAT (NEUT) % 85.8 % (test code = 770-8) IMM GRAN % (test code 2.50 % = 3759688013) LYMPH % (test code = 6.7 % 736-9) MONO % (test code = 4.8 % 5905-5) EOS % (test code = 0.1 % 713-8) BASO % (test code = 0.1 % 706-2) GRAN MAT x10^3(ANC) 7.74 10*3/uL 1.88-7.09 H (test code = 8326998898) IMM GRAN x10^3 (test 0.23 10*3/uL 0.00-0.06 H code = 0387487936) LYMPH x10^3 (test code 0.60 10*3/uL 1.32-3.29 L = 731-0) MONO x10^3 (test code 0.43 10*3/uL 0.33-0.92 = 742-7) EOS x10^3 (test code = 0.03-0.39 L 711-2) BASO x10^3 (test code 0.01-0.07 = 704-7) Lab Interpretation Abnormal (test code = 74165-0) [facility] GLUCOSE (AUTOMATED)2022-08-09 11:54:17 Test Item Value Reference Range Interpretation Comments POCT GLU (test code = 8657300629) 202 mg/dL 70-110 H Lab Interpretation (test code = Abnormal 05709-6) [facility] GLUCOSE (AUTOMATED)2022-08-09 06:19:48 Test Item Value Reference Range Interpretation Comments POCT GLU (test code = 9516943097) 231 mg/dL 70-110 H Lab Interpretation (test code = Abnormal 32262-5) [facility] GLUCOSE (AUTOMATED)2022-08-09 02:32:58 Test Item Value Reference Range Interpretation Comments POCT GLU (test code = 6780539535) 316 mg/dL 70-110 H Lab Interpretation (test code = Abnormal 31776-3) [facility] GLUCOSE (AUTOMATED)2022-08-09 02:28:52 Test Item Value Reference Range Interpretation Comments POCT GLU (test code = 9590000872) 363 mg/dL 70-110 H Lab Interpretation (test code = Abnormal 73469-6) [facility] GLUCOSE (AUTOMATED)2022-08-08 17:32:51 Test Item Value Reference Range Interpretation Comments POCT GLU (test code = 0335026525) 201 mg/dL 70-110 H Lab Interpretation (test code = Abnormal 62408-1) [facility] GLUCOSE (AUTOMATED)2022-08-08 17:32:51 Test Item Value Reference Range Interpretation Comments POCT GLU (test code = 1306440676) 251 mg/dL 70-110 H Lab Interpretation (test code = Abnormal 76036-3) [facility] GLUCOSE (AUTOMATED)2022-08-08 10:02:25 Test Item Value Reference Range Interpretation Comments POCT GLU (test code = 4300760096) 153 mg/dL 70-110 H Lab Interpretation (test code = Abnormal 52363-1) [facility] GLUCOSE (AUTOMATED)2022-08-08 06:20:09 Test Item Value Reference Range Interpretation Comments POCT GLU (test code = 7600284369) 224 mg/dL 70-110 H Lab Interpretation (test code = Abnormal 07959-7) [facility] GLUCOSE (AUTOMATED)2022-08-08 02:43:59 Test Item Value Reference Range Interpretation Comments POCT GLU (test code = 9697656945) 256 mg/dL 70-110 H Lab Interpretation (test code = Abnormal 74842-6) [facility] GLUCOSE (AUTOMATED)2022-08-07 22:28:36 Test Item Value Reference Range Interpretation Comments POCT GLU (test code = 6676251551) 273 mg/dL 70-110 H Lab Interpretation (test code = Abnormal 56249-8) [facility]2022-08-07 22:15:07 Test Item Value Reference Range Interpretation Comments Height (test code = in 6987814805) Weight (test code = lbs 7845209881) Systolic BP (test code = mmHg 9571992115) Diastolic BP (test code mmHg = 6514166892) Heart Rate (test code = bpm 5975543631) BSA (test code = 1.96 m2 9939899089) Ao root diam (test code 3.30 cm = 4183418139) Aortic root (test code = 3.3 cm 7704463273) Ao root annulus (test 3.3 cm code = 1235345701) LVOT diameter (test code 1.80 cm = 3387660623) LVOT area (test code = 2.60 cm2 6418539697) LVIDD (test code = 3.50 cm 7812068984) Left Ventricular End 51.9 mL Diastolic Volume by Teichholz Method (test code = 4528211) IVS (test code = 1.24 cm 4030418234) Interventricular Septum 1.24 cm Diastolic Thickness by 2D (test code = 6088983) LVPWD (test code = 1.24 cm 3081974341) PW (test code = 1.24 cm 0.6-1.0 0683984504) EF(Teich) (test code = 58.70 % 3868542713) LVIDS (test code = 2.46 cm 1175598311) Left Ventricular End 21.4 mL Systolic Volume by Teichholz Method (test code = 0880650) FS (test code = 30 % 2539313954) EF - 2D (test code = 58.70 % 32081324) LA size (test code = 2.9 cm 7032667444) MV Peak E Marva (test code 81.4 cm/s = 2481334141) MV stenosis pressure 1/2 76.6 ms time (test code = 8942760363) E wave decelartion time 0.26 s (test code = 3383980907) MV Peak A Marva (test code 87.8 cm/s = 3862334409) E/A ratio (test code = ratio 9534941860) MV Prop V (test code = 139.40 cm/s 0040982489) MV E/e' septal (test 7.4 cm/s code = 9250671130) Tapse (test code = 1.61 cm 7796994138) LVOT stroke volume (test 53.30 cm3 code = 6332446502) LVOT peak marva (test code 128.1 cm/s = 8598668069) LVOT mn grad (test code mmHg = 7005097454) AV LVOT peak gradient mmHg (test code = 4981326806) LVOT peak VTI (test code 20.9 cm = 7044998869) LV V1 mean (test code = 86.80 cm/s 5380199137) Aortic valve mean 119.8 cm/s velocity (test code = 2922824534) Ao peak marva (test code = 175.1 cm/s 7868066056) Ao VTI (test code = 28.5 cm 1058050059) AV area by cont VTI 1.9 cm2 (test code = 3093996243) AV area peak marva (test 1.9 cm2 code = 9244317485) Ao max PG (test code = 12.30 mm[Hg] 9245792120) AV peak gradient (test mmHg code = 5531541743) AV valve area (test code 1.87 cm2 = 1451541511) AV mean gradient (test mmHg code = 8442513545) Radiology Study observation (narrative) (test code = 69979-4) JENNIFFER (test code = JENNIFFER) Table formatting [...] mL of Lumason ultrasound enhancing agent used. [facility] GLUCOSE (AUTOMATED)2022-08-07 17:28:57 Test Item Value Reference Range Interpretation Comments POCT GLU (test code = 168 mg/dL 70-110 H Notifi ed Provider 0318401307) Lab Interpretation (test Abnormal code = 37450-3) [facility] [id number] 14:57:11 Test Item Value Reference Range Interpretation Comments TSH (test code = See_Comment Biotin has been 1702573655) reported to cau se a negative bias, interpret resul ts relative to pat ted's use of biotin. [Automated mess age] The system [employer] generated this result transmitted ref erence range: 0.45 - 4 .70 mIU/L. The refe rence range was not u sed to interpret this result as normal/abnor mal. Lab Interpretation (test Normal code = 70189-5) [facility] GLUCOSE (AUTOMATED)2022-08-07 13:46:07 Test Item Value Reference Range Interpretation Comments POCT GLU (test code = 7085097217) 180 mg/dL 70-110 H Lab Interpretation (test code = Abnormal 16843-3) [facility] GLUCOSE (AUTOMATED)2022-08-07 12:34:16 Test Item Value Reference Range Interpretation Comments POCT GLU (test code = 0583625741) 198 mg/dL 70-110 H Lab Interpretation (test code = Abnormal 10897-0) [facility] [id number] 12:27:41 Test Item Value Reference Interpretation Comments Range TROPONIN I (test 0.005 ng/mL See_Comment [Automated code = 2121819610) message] The system which generated this result [...] biotin. Lab Interpretation Normal (test code = 83746-6) [facility]AL [id number] 12:24:19 Test Item Value Reference Range Interpretation Comments NT-proBNP (test code 332 pg/mL See_Comment H [Autom ated = 4055144743) message] The system which generated this result transmitted reference range : <=125. The reference range was not used to interpret this result as normal/abnormal . JENNIFFER (test code = JENNIFFER) Biotin has been reported to cause a negative bias, interpret results relative to patient's use of biotin. Lab Interpretation Abnormal (test code = 10051-9) [facility]OL[facility] (76468)2022-08-07 12:17:19 Test Item Value Reference Range Interpretation Comments NA (test code = 137 mmol/L 135-145 3689230903) K (test code = 4.3 mmol/L 3.5-5.0 0941530973) CL (test code = 103 mmol/L 98-108 7641878996) CO2 TOTAL (test code = 30 mmol/L 23-31 9423497904) AGAP (test code = 2-16 3414231217) BUN (test code = 30 mg/dL 7-23 H 6756247818) GLUCOSE (test code = 198 mg/dL 70-110 H 1454951317) CREATININE (test code = 0.93 mg/dL 0.50-1.04 8159331272) TOTAL BILI (test code = 0.4 mg/dL 0.1-1.3 0494466352) CALCIUM (test code = 8.3 mg/dL 8.6-10.6 L 2028737367) T PROTEIN (test code = 6.0 g/dL 6.3-8.2 L 1090228369) ALBUMIN (test code = 3.2 g/dL 3.5-5.0 L 7043583532) ALK PHOS (test code = 70 U/L 34-122 2013094858) ALTv (test code = 23 U/L 5-35 1742-6) AST(SGOT) (test code = 22 U/L 13-40 5143770122) eGFR (test code = mL/min/1.73m2 4647098754) JENNIFFER (test code = JENNIFFER) Association of [...] tests). Lab Interpretation Abnormal (test code = 13721-4) [facility] 12:17:19 Test Item Value Reference Range Interpretation Comments MAGNESIUM (test code = 6622642002) 2.4 mg/dL 1.7-2.4 Lab Interpretation (test code = Normal 21658-4) [facility] 12:16:59 Test Item Value Reference Range Interpretation Comments PHOSPHORUS (test code = 3894628991) 3.3 mg/dL 2.5-5.0 Lab Interpretation (test code = Normal 07068-5) [facility] WITH [id number] 12:16:18 Test Item Value Reference Range Interpretation [...] (test code = 50.2 fL 39.0-49.9 H 10103-6) RDW-CV (test code = 15.1 % 12.0-15.5 788-0) PLT (test code = See_Comment [Automated 777-3) message] The system which generated this result transmit alden reference range : 166 - 358 10*3/ ?L. The reference range was not u sed to interpret th is result as normal/abnormal . MPV (test code = 10.0 fL 9.5-12.9 19666-4) NRBC/100 WBC (test See_Comment [Automat ed code = 6214383461) message] The system which generated this result transmit alden reference range : 0.0 - 10.0 /100 WBCs. The reference range was not used to interpret this result as normal/abnormal . NRBC x10^3 (test code See_Comment [Auto mated = 1928361009) message] The system which generated this result transmit alden reference range : 10*3/?L. The reference range was not used to interpret this result as normal/abnormal . GRAN MAT (NEUT) % 87.7 % (test code = 770-8) IMM GRAN % (test code 1.10 % = 5984193284) LYMPH % (test code = 7.7 % 736-9) MONO % (test code = 3.4 % 5905-5) EOS % (test code = 0.0 % 713-8) BASO % (test code = 0.1 % 706-2) GRAN MAT x10^3(ANC) 11.83 10*3/uL 1.88-7.09 H (test code = 1369465189) IMM GRAN x10^3 (test 0.15 10*3/uL 0.00-0.06 H code = 0044451219) LYMPH x10^3 (test code 1.04 10*3/uL 1.32-3.29 L = 731-0) MONO x10^3 (test code 0.46 10*3/uL 0.33-0.92 = 742-7) EOS x10^3 (test code = 0.03-0.39 L 711-2) BASO x10^3 (test code 0.01-0.07 = 704-7) Lab Interpretation Abnormal (test code = 62522-7) [facility] UNCONJUGATED/BILI [id number] 12:16:18 Test Item Value Reference Range Interpretation Comments BILI CONJ (test code = 0164733319) 0.0 mg/dL 0.0-0.3 BILI UNCON (test code = 8884692854) 0.2 mg/dL 0.1-1.1 Lab Interpretation (test code = Normal 96508-7) [facility] GLUCOSE (AUTOMATED)2022-08-07 10:20:14 Test Item Value Reference Range Interpretation Comments POCT GLU (test code = 7461138157) 227 mg/dL 70-110 H Lab Interpretation (test code = Abnormal 95833-9) [facility] GLUCOSE (AUTOMATED)2022-08-07 05:43:17 Test Item Value Reference Range Interpretation Comments POCT GLU (test code = 1006123985) 162 mg/dL 70-110 H Lab Interpretation (test code = Abnormal 82200-1) [facility] GLUCOSE (AUTOMATED)2022-08-07 02:28:42 Test Item Value Reference Range Interpretation Comments POCT GLU (test code = 6338549777) 229 mg/dL 70-110 H Lab Interpretation (test code = Abnormal 84022-5) [facility] GLUCOSE (AUTOMATED)2022-08-06 17:18:17 Test Item Value Reference Range Interpretation Comments POCT GLU (test code = 9508357133) 223 mg/dL 70-110 H Lab Interpretation (test code = Abnormal 20484-1) [facility] HospitalLailic Acid Whole [id number] 13:38:44 Test Item Value Reference Range Interpretation Comments LACTIC ACID (test code = 1.93 mmol/L 0.50-2.20 5592565287) Lab Interpretation (test code = Normal 34705-3) [facility] GLUCOSE (AUTOMATED)2022-08-06 13:29:26 Test Item Value Reference Range Interpretation Comments POCT GLU (test code = 9720571773) 261 mg/dL 70-110 H Lab Interpretation (test code = Abnormal 09447-6) [id number] 12:40:18 Test Item Value Reference Interpretation Comments Range TROPONIN I (test 0.002 ng/mL See_Comment [Automated code = 2510184966) message] The system which generated this result [...] biotin. Lab Interpretation Normal (test code = 37722-1) [facility] [id number] 12:37:16 Test Item Value Reference Range Interpretation Comments NT-proBNP (test code 480 pg/mL See_Comment H [Autom ated = 0599811144) message] The system which generated this result transmitted reference range : <=125. The reference range was not used to interpret this result as normal/abnormal . JENNIFFER (test code = JENNIFFER) Biotin has been reported to cause a negative bias, interpret results relative to patient's use of biotin. Lab Interpretation Abnormal (test code = 30226-5) [facility]. METABOLIC PANEL (09290)2022-08-06 12:28:53 Test Item Value Reference Range Interpretation Comments NA (test code = 136 mmol/L 135-145 3991624915) K (test code = 4.3 mmol/L 3.5-5.0 7046913676) CL (test code = 99 mmol/L 98-108 7823181398) CO2 TOTAL (test code = 36 mmol/L 23-31 H 0468211394) AGAP (test code = 2-16 L 4270786670) BUN (test code = 30 mg/dL 7-23 H 5219524710) GLUCOSE (test code = 246 mg/dL 70-110 H 3927513413) CREATININE (test code = 0.94 mg/dL 0.50-1.04 1579007846) TOTAL BILI (test code = 0.5 mg/dL 0.1-1.7 9525504485) CALCIUM (test code = 8.6 mg/dL 8.6-10.6 7360663845) T PROTEIN (test code = 5.9 g/dL 6.3-8.2 L 5807025380) ALBUMIN (test code = 3.2 g/dL 3.5-5.0 L 1982361568) ALK PHOS (test code = 81 U/L 34-122 1057851176) ALTv (test code = 24 U/L 5-35 1742-6) AST(SGOT) (test code = 23 U/L 13-40 7567014125) eGFR (test code = mL/min/1.73m2 5456833358) JENNIFFER (test code = JENNIFFER) Association of [...] tests). Lab Interpretation Abnormal (test code = 09655-6) [facility] 12:28:53 Test Item Value Reference Range Interpretation Comments MAGNESIUM (test code = 6500632151) 2.2 mg/dL 1.7-2.4 Lab Interpretation (test code = Normal 39918-5) [facility] 12:28:33 Test Item Value Reference Range Interpretation Comments PHOSPHORUS (test code = 3902306288) 2.9 mg/dL 2.5-5.0 Lab Interpretation (test code = Normal 62343-9) [facility] [id number] 12:28:13 Test Item Value Reference Range Interpretation Comments CK (test code = 9149138991) 21 U/L 33-194 L Lab Interpretation (test code = Abnormal 57372-0) [facility]2022-08-06 11:29:35 Test Item Value Reference Range Interpretation Comments POCT GLU (test code = 5511795198) 275 mg/dL 70-110 H Lab Interpretation (test code = Abnormal 01535-0) [facility] GLUCOSE (AUTOMATED)2022-08-06 06:56:17 Test Item Value Reference Range Interpretation Comments POCT GLU (test code = 2969781199) 248 mg/dL 70-110 H Lab Interpretation (test code = Abnormal 15196-6) [facility] GLUCOSE (AUTOMATED)2022-08-06 02:34:33 Test Item Value Reference Range Interpretation Comments POCT GLU (test code = 7653762928) 255 mg/dL 70-110 H Lab Interpretation (test code = Abnormal 74430-5) [facility] GLUCOSE (AUTOMATED)2022-08-05 23:01:47 Test Item Value Reference Range Interpretation Comments POCT GLU (test code = 6401474563) 277 mg/dL 70-110 H Lab Interpretation (test code = Abnormal 00583-1) [id number] 22:36:41 Test Item Value Reference Interpretation Comments Range TROPONIN I (test 0.001 ng/mL See_Comment [Automated code = 8321275791) message] The system which generated this result [...] biotin. Lab Interpretation Normal (test code = 22078-5) [facility] GLUCOSE (AUTOMATED)2022-08-05 17:57:05 Test Item Value Reference Range Interpretation Comments POCT GLU (test code = 0558555553) 306 mg/dL 70-110 H Lab Interpretation (test code = Abnormal 75794-6) [facility]2022-08-05 13:44:12 Test Item Value Reference Range Interpretation Comments POCT GLU (test code = 5380530381) 376 mg/dL 70-110 H Lab Interpretation (test code = Abnormal 11776-0) [facility] [id number] 04:02:57 Test Item Value Reference Interpretation Comments Range TROPONIN I (test 0.001 ng/mL See_Comment [Automated code = 0816428881) message] The system which generated this result [...] biotin. Lab Interpretation Normal (test code = 69500-3) [facility] [id number] 03:59:58 Test Item Value Reference Range Interpretation Comments NT-proBNP (test code 100 pg/mL See_Comment [Autom ated = 0976765665) message] The system which generated this result transmitted reference range : <=125. The reference range was not used to interpret this result as normal/abnormal . JENNIFFER (test code = JENNIFFER) Biotin has been reported to cause a negative bias, interpret results relative to patient's use of biotin. Lab Interpretation Normal (test code = 57509-6) [facility]. METABOLIC PANEL (01907)2022-06-05 03:50:53 Test Item Value Reference Range Interpretation Comments NA (test code = 139 mmol/L 135-145 2769803633) K (test code = 5.0 mmol/L 3.5-5.0 4572750107) CL (test code = 96 mmol/L 98-108 L 5806817089) CO2 TOTAL (test code = 38 mmol/L 23-31 H 9759448521) AGAP (test code = 2-16 8694214487) BUN (test code = 19 mg/dL 7-23 5704723965) GLUCOSE (test code = 186 mg/dL 70-110 H 3918718152) CREATININE (test code = 0.83 mg/dL 0.50-1.04 9368820194) TOTAL BILI (test code = 0.8 mg/dL 0.1-1.5 8240599302) CALCIUM (test code = 8.9 mg/dL 8.6-10.6 2149816756) T PROTEIN (test code = 7.4 g/dL 6.3-8.2 0454973581) ALBUMIN (test code = 4.3 g/dL 3.5-5.0 5749776006) ALK PHOS (test code = 102 U/L 34-122 7635752406) ALTv (test code = 33 U/L 5-35 2-6) AST(SGOT) (test code = 40 U/L 13-40 2459043932) eGFR (test code = mL/min/1.73m2 0369716683) JENNIFFER (test code = JENNIFFER) Association of [...] tests). Lab Interpretation Abnormal (test code = 49504-6) [facility] WITH [id number] 03:35:15 Test Item Value Reference Range Interpretation [...] RDW-SD (test code = 49.0 fL 39.0-49.9 68465-5) RDW-CV (test code = 15.4 % 12.0-15.5 788-0) PLT (test code = See_Comment [Automated 777-3) message] The sy stem which generated this result transmitted reference range : 166 - 358 10*3/ ?L. The reference r josselyn was not used to interpret this result as normal/abnormal . MPV (test code = 9.0 fL 9.5-12.9 L 86072-1) NRBC/100 WBC (test See_Comment [Automat ed code = 4959106585) message] The system which generated this result transmitted reference range : 0.0 - 10.0 /100 WBCs. The refer ence range was not u sed to interpret th is result as normal/abnormal . NRBC x10^3 (test code See_Comment [Auto mated = 4354924614) message] The s ystem which generated this result transmitted reference range : 10*3/?L. The reference range was not used to interpret this result as normal/abnormal . GRAN MAT (NEUT) % 85.5 % (test code = 770-8) IMM GRAN % (test code 0.60 % = 5644944754) LYMPH % (test code = 7.7 % 736-9) MONO % (test code = 4.0 % 5905-5) EOS % (test code = 1.6 % 713-8) BASO % (test code = 0.6 % 706-2) GRAN MAT x10^3(ANC) 8.05 10*3/uL 1.88-7.09 H (test code = 3588600403) IMM GRAN x10^3 (test 0.06 10*3/uL 0.00-0.06 code = 5681508525) LYMPH x10^3 (test code 0.73 10*3/uL 1.32-3.29 L = 731-0) MONO x10^3 (test code 0.38 10*3/uL 0.33-0.92 = 742-7) EOS x10^3 (test code = 0.15 10*3/uL 0.03-0.39 711-2) BASO x10^3 (test code 0.06 10*3/uL 0.01-0.07 = 704-7) Lab Interpretation Abnormal (test code = 42144-5) [facility] [id number] 06:26:12 Test Item Value Reference Interpretation Comments Range TROPONIN I (test 0.002 ng/mL See_Comment [Automated code = 2092247306) message] The system which generated this result [...] biotin. Lab Interpretation Normal (test code = 77831-9) [facility] [id number] 06:23:11 Test Item Value Reference Range Interpretation Comments NT-proBNP (test code 81 pg/mL See_Comment [Autom ated = 4781030029) message] The system which generated this result transmitted reference range : <=125. The reference range was not used to interpret this result as normal/abnormal . JENNIFFER (test code = JENNIFFER) Biotin has been reported to cause a negative bias, interpret results relative to patient's use of biotin. Lab Interpretation Normal (test code = 54229-4) [facility] + LACTIC [id number] 06:21:05 Test Item Value Reference Range Interpretation Comments PH (test code = 7.32-7.42 L 5642868133) PCO2 CELIA (test code = See_Comment H [Auto mated 1980220310) message] The sy stem which generated this result transmitted reference range : 41 - 51 mmHg. The reference range was not used to interpret this result as normal/abnormal . PO2 CELIA (test code = See_Comment L [Autom ated 4806975146) message] The sy stem which generated this result transmitted reference range : 25 - 40 mmHg. The reference range was not used to interpret this result as normal/abnormal . HCO3 CELIA (test code = See_Comment H [Auto mated 4649357200) message] The sy stem which generated this result transmitted reference range : 24 - 28 mEq/L. The reference range was not used to interpret this result as normal/abnormal . AC VBE(BEAKER) (test mEq/L code = 2015963389) THB CELIA (test code = 12.3 g/dL 12-16 6097866276) %O2HB CELIA (test code = 38.2 % 52-63 L 1882790849) %COHB CELIA (test code = 0.7 % 0-1.5 6948235951) %METHB CELIA (test code = 0.3 % 0.4-1.5 L 2985392137) VOL%O2 CELIA (test code = 6.6 % 6-12 1320816201) NA (test code = 138 mmol/L 135-145 4711203730) K+ (test code = 4.2 mmol/L 3.5-5 0366095365) AC CA IONZ (test code = 4.70 mg/dL 4.5-5.3 8120497894) GLUCOSE (test code = 178 mg/dL 70-110 H 9639553516) LACTIC ACID (test code 1.11 mmol/L 0.5-2.2 = 3274840902) Lab Interpretation Abnormal (test code = 00171-0) [facility]. METABOLIC PANEL (04922)2022-05-02 06:14:48 Test Item Value Reference Range Interpretation Comments NA (test code = 140 mmol/L 135-145 6056110637) K (test code = 4.4 mmol/L 3.5-5 9296715980) CL (test code = 97 mmol/L 98-108 L 6782766264) CO2 TOTAL (test code = 35 mmol/L 23-31 H 4595402365) AGAP (test code = 2-16 5903332300) BUN (test code = 23 mg/dL 7-23 7854971828) GLUCOSE (test code = 185 mg/dL 70-110 H 7591256403) CREATININE (test code = 1.16 mg/dL 0.5-1.04 H 1617865848) TOTAL BILI (test code = 0.4 mg/dL 0.1-1.3 3702221117) CALCIUM (test code = 9.4 mg/dL 8.6-10.6 0430259726) T PROTEIN (test code = 7.3 g/dL 6.3-8.2 9224344362) ALBUMIN (test code = 4.4 g/dL 3.5-5 2082260921) ALK PHOS (test code = 112 U/L 34-122 4823202237) ALTv (test code = 47 U/L 5-35 H 1742-6) AST(SGOT) (test code = 47 U/L 13-40 H 1611253633) eGFR (test code = mL/min/1.73m2 6994497235) JENNIFFER (test code = JENNIFFER) Association of [...] tests). Lab Interpretation Abnormal (test code = 62144-4) [facility] 06:14:48 Test Item Value Reference Range Interpretation Comments MAGNESIUM (test code = 0380302460) 2.5 mg/dL 1.7-2.4 H Lab Interpretation (test code = Abnormal 66813-3) [facility] WITH [id number] 05:53:47 Test Item Value Reference Range Interpretation Comments WBC (test code = See_Comment [Automated 1390-2) message] The sy stem which generated this [...] RDW-SD (test code = 47.2 fL 39-49.9 27108-3) RDW-CV (test code = 14.8 % 12-15.5 788-0) PLT (test code = See_Comment [Automated 777-3) message] The sy stem which generated this result transmitted reference range : 166 - 358 10*3/ ?L. The reference r josselyn was not used to interpret this result as normal/abnormal . MPV (test code = 9.1 fL 9.5-12.9 L 11095-7) NRBC/100 WBC (test See_Comment [Automat ed code = 2306269437) message] The system which generated this result transmitted reference range : 0.0 - 10.0 /100 WBCs. The refer ence range was not u sed to interpret th is result as normal/abnormal . NRBC x10^3 (test code See_Comment [Auto mated = 5930965381) message] The s ystem which generated this result transmitted reference range : 10*3/?L. The reference range was not used to interpret this result as normal/abnormal . GRAN MAT (NEUT) % 82.2 % (test code = 770-8) IMM GRAN % (test code 0.40 % = 7599372230) LYMPH % (test code = 10.2 % 736-9) MONO % (test code = 4.4 % 5905-5) EOS % (test code = 1.8 % 713-8) BASO % (test code = 1.0 % 706-2) GRAN MAT x10^3(ANC) 6.37 10*3/uL 1.88-7.09 (test code = 8164397316) IMM GRAN x10^3 (test 0.03 10*3/uL 0-0.06 code = 2657561977) LYMPH x10^3 (test code 0.79 10*3/uL 1.32-3.29 L = 731-0) MONO x10^3 (test code 0.34 10*3/uL 0.33-0.92 = 742-7) EOS x10^3 (test code = 0.14 10*3/uL 0.03-0.39 711-2) BASO x10^3 (test code 0.08 10*3/uL 0.01-0.07 H = 704-7) Lab Interpretation Abnormal (test code = 94957-1) [facility] [id number] 03:36:53 Test Item Value Reference Range Interpretation Comments NT-proBNP (test code 102 pg/mL See_Comment [Autom ated = 5901424808) message] The system which generated this result transmitted reference range : <=125. The reference range was not used to interpret this result as normal/abnormal . JENNIFFER (test code = JENNIFFER) Biotin has been reported to cause a negative bias, interpret results relative to patient's use of biotin. Lab Interpretation Normal (test code = 17976-7) [facility] [id number] 03:23:03 Test Item Value Reference Interpretation Comments Range TROPONIN I (test See_Comment [Automated code = 2707993746) message] The system which generated this result [...] biotin. Lab Interpretation Normal (test code = 25410-4) [facility]. METABOLIC PANEL (75790)2022-04-29 03:11:22 Test Item Value Reference Range Interpretation Comments NA (test code = 139 mmol/L 135-145 5349178979) K (test code = 4.6 mmol/L 3.5-5 3303178760) CL (test code = 94 mmol/L 98-108 L 1287049825) CO2 TOTAL (test code = 36 mmol/L 23-31 H 3443740489) AGAP (test code = 2-16 9569465238) BUN (test code = 23 mg/dL 7-23 1129331481) GLUCOSE (test code = 271 mg/dL 70-110 H 0819221492) CREATININE (test code = 0.91 mg/dL 0.5-1.04 9532554711) TOTAL BILI (test code = 0.5 mg/dL 0.1-1.1 1944148390) CALCIUM (test code = 9.3 mg/dL 8.6-10.6 9962410429) T PROTEIN (test code = 7.3 g/dL 6.3-8.2 9090370450) ALBUMIN (test code = 4.5 g/dL 3.5-5 7975409435) ALK PHOS (test code = 137 U/L 34-122 H 5663090442) ALTv (test code = 39 U/L 5-35 H 1742-6) AST(SGOT) (test code = 34 U/L 13-40 2892190803) eGFR (test code = mL/min/1.73m2 1110455959) JENNIFFER (test code = JENNIFFER) Association of [...] tests). Lab Interpretation Abnormal (test code = 53664-4) [facility] [id number] 03:09:40 Test Item Value Reference Range Interpretation Comments APTT Patient (test See_Comment [Automat ed code = 3173-2) message] The system which generated this result transmitted reference range : 23 - 38 Seconds . The reference range was not used to interpr et this result as normal/abnormal . JENNIFFER (test code = JENNIFFER) The [facility] patient population mean normal value for aPTT is 30 seconds. Lab Interpretation Normal (test code = 92525-9) [facility] / [id number] 03:07:39 Test Item Value Reference Range Interpretation [...] tions. Lab Interpretation (test Normal code = 82386-2) [facility] WITH [id number] 02:58:01 Test Item Value Reference Range Interpretation [...] RDW-SD (test code = 47.9 fL 39-49.9 03694-7) RDW-CV (test code = 14.8 % 12-15.5 788-0) PLT (test code = See_Comment [Automated 777-3) message] The system which generated this result transmit alden reference range : 166 - 358 10*3/ ?L. The reference range was not u sed to interpret th is result as normal/abnormal . MPV (test code = 9.0 fL 9.5-12.9 L 86362-7) NRBC/100 WBC (test See_Comment [Automat ed code = 7059521925) message] The system which generated this result transmit alden reference range : 0.0 - 10.0 /100 WBCs. The reference range was not used to interpret this result as normal/abnormal . NRBC x10^3 (test code See_Comment [Auto mated = 6968022888) message] The system which generated this result transmit alden reference range : 10*3/?L. The reference range was not used to interpret this result as normal/abnormal . GRAN MAT (NEUT) % 85.4 % (test code = 770-8) IMM GRAN % (test code 0.40 % = 9507277944) LYMPH % (test code = 7.5 % 736-9) MONO % (test code = 5.0 % 5905-5) EOS % (test code = 1.1 % 713-8) BASO % (test code = 0.6 % 706-2) GRAN MAT x10^3(ANC) 10.20 10*3/uL 1.88-7.09 H (test code = 8699976266) IMM GRAN x10^3 (test 0.05 10*3/uL 0-0.06 code = 2048960215) LYMPH x10^3 (test code 0.89 10*3/uL 1.32-3.29 L = 731-0) MONO x10^3 (test code 0.60 10*3/uL 0.33-0.92 = 742-7) EOS x10^3 (test code = 0.13 10*3/uL 0.03-0.39 711-2) BASO x10^3 (test code 0.07 10*3/uL 0.01-0.07 = 704-7) Lab Interpretation Abnormal (test code = 49662-0) [facility] GLUCOSE (AUTOMATED)2022-02-27 20:32:53 Test Item Value Reference Range Interpretation Comments POCT GLU (test code = 3056770501) 236 mg/dL 70-110 H Lab Interpretation (test code = Abnormal 20383-6) [facility] GLUCOSE (AUTOMATED)2022-02-27 16:22:28 Test Item Value Reference Range Interpretation Comments POCT GLU (test code = 6511742870) 242 mg/dL 70-110 H Lab Interpretation (test code = Abnormal 70820-5) [facility] GLUCOSE (AUTOMATED)2022-02-27 12:34:52 Test Item Value Reference Range Interpretation Comments POCT GLU (test code = 3738726979) 195 mg/dL 70-110 H Lab Interpretation (test code = Abnormal 87432-6) [facility] GLUCOSE (AUTOMATED)2022-02-26 21:43:40 Test Item Value Reference Range Interpretation Comments POCT GLU (test code = 2222989310) 315 mg/dL 70-110 H Lab Interpretation (test code = Abnormal 72037-2) [facility] GLUCOSE (AUTOMATED)2022-02-26 17:51:09 Test Item Value Reference Range Interpretation Comments POCT GLU (test code = 9243167579) 316 mg/dL 70-110 H Lab Interpretation (test code = Abnormal 44514-9) [facility] GLUCOSE (AUTOMATED)2022-02-26 14:27:56 Test Item Value Reference Range Interpretation Comments POCT GLU (test code = 0714020124) 226 mg/dL 70-110 H Lab Interpretation (test code = Abnormal 18443-0) [id number]:01:38 Test Item Value Reference Range Interpretation Comments Blood Culture-Aerobic No organisms No growth Previo us (test code = 85021-4) isolated prelim inary verified result was Culture [...] Culture-Anaerobic isolated preliminar y (test code = 37340-6) verifi ed result was Culture In Progress [...] CDT Lab Interpretation Normal (test code = 22054-5) [facility] GLUCOSE (AUTOMATED)2022-02-26 01:34:43 Test Item Value Reference Range Interpretation Comments POCT GLU (test code = 2454724001) 253 mg/dL 70-110 H Lab Interpretation (test code = Abnormal 55024-6) [facility] GLUCOSE (AUTOMATED)2022-02-25 20:41:07 Test Item Value Reference Range Interpretation Comments POCT GLU (test code = 6064390122) 260 mg/dL 70-110 H Lab Interpretation (test code = Abnormal 65524-6) [facility] GLUCOSE (AUTOMATED)2022-02-25 16:40:46 Test Item Value Reference Range Interpretation Comments POCT GLU (test code = 2465846481) 245 mg/dL 70-110 H Lab Interpretation (test code = Abnormal 49259-5) [facility] Arterial Blood Gas.2022-02-25 14:15:07 Test Item Value Reference Range Interpretation Comments PH (test code = 2) 7.35-7.45 H PCO2 (test code = See_Comment H [Automate d message] 8207530134) The system [employer] generated this result transmitted ref erence range: 35 - 45 mmHg. The reference r josselyn was not used to interpret this result as normal/abnor mal. PO2 (test code = See_Comment [Automated message] 9601538460) The system [employer] generated this result transmitted ref erence range: 80 - 100 mmHg. The reference r josselyn was not used to interpret this result as normal/abnor mal. HCO3 (test code = See_Comment H [Automate d message] 7723946257) The system [employer] generated this result transmitted ref erence range: 22 - 26 mEq/L. The reference r josselyn was not used to interpret this result as normal/abnor mal. BE (test code = See_Comment H [Automated message] 3482620344) The system [employer] generated this result transmitted ref erence range: -3.0 - 3 .0 mEq/L. The refe rence range was not u sed to interpret this result as normal/abnor mal. Lab Interpretation (test Abnormal code = 20652-9) [facility] GLUCOSE (AUTOMATED)2022-02-25 12:53:11 Test Item Value Reference Range Interpretation Comments POCT GLU (test code = 3495362399) 194 mg/dL 70-110 H Lab Interpretation (test code = Abnormal 65320-8) [facility] METABOLIC PANEL (NA, K, CL, CO2, GLUCOSE, BUN, CREATININE, CA)2022-02-25 12:18:22 Test Item Value Reference Range Interpretation Comments NA (test code = 135 mmol/L 135-145 2578185008) K (test code = 3.5 mmol/L 3.5-5 1243773526) CL (test code = 97 mmol/L 98-108 L 5414729353) CO2 TOTAL (test code = 37 mmol/L 23-31 H 1691660209) AGAP (test code = 2-16 L 1356348379) BUN (test code = 36 mg/dL 7-23 H 2385252589) GLUCOSE (test code = 172 mg/dL 70-110 H 2705710523) CREATININE (test code = 1.57 mg/dL 0.5-1.04 H 1552313176) CALCIUM (test code = 9.0 mg/dL 8.6-10.6 3794804917) eGFR (test code = mL/min/1.73m2 5130822826) JENNIFFER (test code = JENNIFFER) Association of [...] tests). Lab Interpretation Abnormal (test code = 14047-3) [facility]2022-08-03 12:18:22 Test Item Value Reference Range Interpretation Comments MAGNESIUM (test code = 4037625430) 1.7 mg/dL 1.7-2.4 Lab Interpretation (test code = Normal 75679-0) [facility] 12:18:22 Test Item Value Reference Range Interpretation Comments PHOSPHORUS (test code = 4440922373) 2.7 mg/dL 2.5-5 Lab Interpretation (test code = Normal 75290-2) [facility] GLUCOSE (AUTOMATED)2022-02-25 01:26:19 Test Item Value Reference Range Interpretation Comments POCT GLU (test code = 8803805546) 180 mg/dL 70-110 H Lab Interpretation (test code = Abnormal 30651-1) [facility] GLUCOSE (AUTOMATED)2022-02-24 20:51:23 Test Item Value Reference Range Interpretation Comments POCT GLU (test code = 7179263415) 206 mg/dL 70-110 H Lab Interpretation (test code = Abnormal 37701-1) [facility]2022-02-24 17:04:22 Test Item Value Reference Range Interpretation Comments PH (test code = 2) 7.35-7.45 H PCO2 (test code = See_Comment [Automate d message] 2072802085) The system [employer] generated this result transmitted ref erence range: 35 - 45 mmHg. The reference r josselyn was not used to interpret this result as normal/abnor mal. PO2 (test code = See_Comment H [Automated message] 7473081165) The system [employer] generated this result transmitted ref erence range: 80 - 100 mmHg. The reference r josselyn was not used to interpret this result as normal/abnor mal. HCO3 (test code = See_Comment H [Automate d message] 9014931808) The system [employer] generated this result transmitted ref erence range: 22 - 26 mEq/L. The reference r josselyn was not used to interpret this result as normal/abnor mal. BE (test code = See_Comment H [Automated message] 7266304893) The system [employer] generated this result transmitted ref erence range: -3.0 - 3 .0 mEq/L. The refe rence range was not u sed to interpret this result as normal/abnor mal. Lab Interpretation (test Abnormal code = 62077-1) [facility] GLUCOSE (AUTOMATED)2022-02-24 17:00:46 Test Item Value Reference Range Interpretation Comments POCT GLU (test code = 0338634723) 230 mg/dL 70-110 H Lab Interpretation (test code = Abnormal 60342-3) [id number] 13:31:58 Test Item Value Reference Interpretation Comments Range TROPONIN I (test 0.002 ng/mL See_Comment [Automated code = 5760707827) message] The system which generated this result [...] biotin. Lab Interpretation Normal (test code = 72681-3) [facility] GLUCOSE (AUTOMATED)2022-02-24 13:24:56 Test Item Value Reference Range Interpretation Comments POCT GLU (test code = 8855502440) 252 mg/dL 70-110 H Lab Interpretation (test code = Abnormal 87541-8) [facility] (NA, K, CL, CO2, GLUCOSE, BUN, CREATININE, CA)2022-02-24 13:21:38 Test Item Value Reference Range Interpretation Comments NA (test code = 138 mmol/L 135-145 6571627367) K (test code = 4.3 mmol/L 3.5-5 4914729062) CL (test code = 94 mmol/L 98-108 L 4166321560) CO2 TOTAL (test code = 39 mmol/L 23-31 H 1334220398) AGAP (test code = 2-16 8850864541) BUN (test code = 31 mg/dL 7-23 H 2658282578) GLUCOSE (test code = 237 mg/dL 70-110 H 9494227404) CREATININE (test code = 1.46 mg/dL 0.5-1.04 H 6873849028) CALCIUM (test code = 9.2 mg/dL 8.6-10.6 0539008266) eGFR (test code = mL/min/1.73m2 3098200084) JENNIFFER (test code = JENNIFFER) Association of [...] tests). Lab Interpretation Abnormal (test code = 74244-4) [facility] [id number] 03:18:42 Test Item Value Reference Range Interpretation Comments LACTIC ACID (test code = 0.92 mmol/L 0.5-2.2 9948153174) Lab Interpretation (test code = Normal 67781-0) [facility] GLUCOSE (AUTOMATED)2022-02-24 01:21:36 Test Item Value Reference Range Interpretation Comments POCT GLU (test code = 3203062182) 200 mg/dL 70-110 H Lab Interpretation (test code = Abnormal 14525-6) [facility] GLUCOSE (AUTOMATED)2022-02-23 22:45:38 Test Item Value Reference Range Interpretation Comments POCT GLU (test code = 0401134241) 246 mg/dL 70-110 H Lab Interpretation (test code = Abnormal 83930-4) [facility] GLUCOSE (AUTOMATED)2022-02-23 21:47:33 Test Item Value Reference Range Interpretation Comments POCT GLU (test code = 261 mg/dL 70-110 H Notifi ed Provider [id number]) Lab Interpretation (test Abnormal code = 88278-3) [facility] + Lactic [id number] 18:40:55 Test Item Value Reference Range Interpretation Comments PH (test code = 2) 7.35-7.45 PCO2 (test code = See_Comment H [Automate d 1621696572) message] The sy stem which generated this result transmitted reference range : 35 - 45 mmHg. The reference range was not used to interpret this result as normal/abnormal . PO2 (test code = See_Comment H [Automated 4322960120) message] The sy stem which generated this result transmitted reference range : 80 - 100 mmHg. The reference range was not used to interpret this result as normal/abnormal . HCO3 (test code = See_Comment H [Automate d 4273563888) message] The sy stem which generated this result transmitted reference range : 22 - 26 mEq/L. The reference range was not used to interpret this result as normal/abnormal . BE (test code = See_Comment H [Automated 9492175426) message] The sy stem which generated this result transmitted reference range : -3.0 - 3.0 mEq/ L. The reference r josselyn was not used to interpret this result as normal/abnormal . THB (test code = 10.1 g/dL 12-16 L 4832979761) %O2HB (test code = 98.2 % 94-99 1876791488) %COHB ART (test code = 0.0 % 0-1.5 4098489574) %METHB ART (test code = 0.2 % 0.4-1.5 L 5297977572) VOL%O2 ART (test code = 14.2 % 15-23 L 8888869759) NA (test code = 142 mmol/L 135-145 5781789164) K+ (test code = 3.9 mmol/L 3.5-5 2299912408) AC CA IONZ (test code = 4.60 mg/dL 4.5-5.3 7865050216) GLUCOSE (test code = 201 mg/dL 70-110 H 4335231207) LACTIC ACID (test code 0.99 mmol/L 0.5-2.2 = 0667840422) Lab Interpretation Abnormal (test code = 57381-1) [facility] GLUCOSE (AUTOMATED)2022-02-23 17:20:26 Test Item Value Reference Range Interpretation Comments POCT GLU (test code = 222 mg/dL 70-110 H Notifi ed Provider [id number]) Lab Interpretation (test Abnormal code = 67873-1) [facility] GLUCOSE (AUTOMATED)2022-02-23 13:23:49 Test Item Value Reference Range Interpretation Comments POCT GLU (test code = 188 mg/dL 70-110 H Notifi ed Provider [id number]) Lab Interpretation (test Abnormal code = 36140-7) [facility] GLUCOSE (AUTOMATED)2022-02-22 21:57:50 Test Item Value Reference Range Interpretation Comments POCT GLU (test code = 8812707177) 240 mg/dL 70-110 H Lab Interpretation (test code = Abnormal 74967-5) [facility] GLUCOSE (AUTOMATED)2022-02-22 18:33:41 Test Item Value Reference Range Interpretation Comments POCT GLU (test code = 0046132019) 247 mg/dL 70-110 H Lab Interpretation (test code = Abnormal 58455-9) [facility] [id number] 15:54:13 Test Item Value Reference Range Interpretation Comments URINE CULTURE (test No aerobic growth (< code = 630-4) 1000 CFU/mL) [facility] (NA, K, CL, CO2, GLUCOSE, BUN, CREATININE, CA)2022-02-22 13:03:42 Test Item Value Reference Range Interpretation Comments NA (test code = 140 mmol/L 135-145 4702165625) K (test code = 3.7 mmol/L 3.5-5 6501758959) CL (test code = 95 mmol/L 98-108 L 6071853415) CO2 TOTAL (test code = 40 mmol/L 23-31 H 5453645643) AGAP (test code = 2-16 1235159059) BUN (test code = 19 mg/dL 7-23 2105644385) GLUCOSE (test code = 167 mg/dL 70-110 H 2309840797) CREATININE (test code = 0.85 mg/dL 0.5-1.04 8305522339) CALCIUM (test code = 9.0 mg/dL 8.6-10.6 1323203929) eGFR (test code = mL/min/1.73m2 6376235024) JENNIFFER (test code = JENNIFFER) Association of [...] tests). Lab Interpretation Abnormal (test code = 11339-2) [facility] 12:14:43 Test Item Value Reference Range Interpretation Comments MAGNESIUM (test code = 8010107469) 2.3 mg/dL 1.7-2.4 Lab Interpretation (test code = Normal 17785-3) [facility] WITH [id number] 11:52:02 Test Item Value Reference Range Interpretation [...] RDW-SD (test code = 48.7 fL 39-49.9 68306-5) RDW-CV (test code = 15.2 % 12-15.5 788-0) PLT (test code = See_Comment [Automated 777-3) message] The sy stem which generated this result transmitted reference range : 166 - 358 10*3/ ?L. The reference r josselyn was not used to interpret this result as normal/abnormal . MPV (test code = 8.9 fL 9.5-12.9 L 23131-4) NRBC/100 WBC (test See_Comment [Automat ed code = 9928491189) message] The system which generated this result transmitted reference range : 0.0 - 10.0 /100 WBCs. The refer ence range was not u sed to interpret th is result as normal/abnormal . NRBC x10^3 (test code See_Comment [Auto mated = 2281555773) message] The s ystem which generated this result transmitted reference range : 10*3/?L. The reference range was not used to interpret this result as normal/abnormal . GRAN MAT (NEUT) % 70.5 % (test code = 770-8) IMM GRAN % (test code 0.70 % = 3494517804) LYMPH % (test code = 18.8 % 736-9) MONO % (test code = 7.9 % 5905-5) EOS % (test code = 1.2 % 713-8) BASO % (test code = 0.9 % 706-2) GRAN MAT x10^3(ANC) 4.04 10*3/uL 1.88-7.09 (test code = 2552958126) IMM GRAN x10^3 (test 0.04 10*3/uL 0-0.06 code = 2119840716) LYMPH x10^3 (test code 1.08 10*3/uL 1.32-3.29 L = 731-0) MONO x10^3 (test code 0.45 10*3/uL 0.33-0.92 = 742-7) EOS x10^3 (test code = 0.07 10*3/uL 0.03-0.39 711-2) BASO x10^3 (test code 0.05 10*3/uL 0.01-0.07 = 704-7) Lab Interpretation Abnormal (test code = 89960-9) [facility] GLUCOSE (AUTOMATED)2022-02-22 01:40:53 Test Item Value Reference Range Interpretation Comments POCT GLU (test code = 1188541509) 246 mg/dL 70-110 H Lab Interpretation (test code = Abnormal 60480-3) [facility] GLUCOSE (AUTOMATED)2022-02-21 22:04:44 Test Item Value Reference Range Interpretation Comments POCT GLU (test code = 8299623317) 293 mg/dL 70-110 H Lab Interpretation (test code = Abnormal 00140-7) [facility] WITHOUT [id number] 16:03:44 Test Item Value Reference Range Interpretation Comments WBC (test code = 6690-2) See_Comment [A utomated message] The system [employer] generated this result transmit alden reference range : 4.30 - 11.10 10*3/?L. The reference range was not used to interpret this result as normal/abnormal . RBC (test code = 789-8) See_Comment L [Au tomated message] The system [employer] generated this result transmit alden reference range [...] 777-3) See_Comment [Au tomated message] The system [facility] generated this result transmit alden reference range : 166 - 358 10*3/?L. The reference range was not used to interpret this result as normal/abnormal . MPV (test code = 9.2 fL 9.5-12.9 L 93785-5) RDW-CV (test code = 15.7 % 12-15.5 H 788-0) RDW-SD (test code = 50.9 fL 39-49.9 H 06732-2) NRBC x10^3 (test code = See_Comment [Au tomated message] 0300635186) The system [employer] generated this result transmit alden reference range : 10*3/?L. The reference range was not used to interpret this result as normal/abnormal . NRBC/100 WBC (test code See_Comment [Au tomated message] = 1083639602) The system [facility] generated this result transmit alden reference range : 0.0 - 10.0 /100 WBC s. The reference r josselyn was not used to interpret this result as normal/abnormal . IPF % (test code = 1395563838) Lab Interpretation (test Abnormal code = 09309-1) [facility] 14:46:08 Test Item Value Reference Range Interpretation Comments POCT GLU (test code = 5412908852) 157 mg/dL 70-110 H Lab Interpretation (test code = Abnormal 82849-3) [facility] METABOLIC PANEL (NA, K, CL, CO2, GLUCOSE, BUN, CREATININE, CA)2022-02-21 09:05:34 Test Item Value Reference Range Interpretation Comments NA (test code = 143 mmol/L 135-145 4432930619) K (test code = 3.8 mmol/L 3.5-5 9016482412) CL (test code = 99 mmol/L 98-108 6327465641) CO2 TOTAL (test code = 37 mmol/L 23-31 H 2888086545) AGAP (test code = 2-16 2044487725) BUN (test code = 17 mg/dL 7-23 6732246759) GLUCOSE (test code = 140 mg/dL 70-110 H 3591087285) CREATININE (test code = 0.85 mg/dL 0.5-1.04 8488403932) CALCIUM (test code = 8.9 mg/dL 8.6-10.6 4241567567) eGFR (test code = mL/min/1.73m2 6109939687) JENNIFFER (test code = JENNIFFER) Association of [...] tests). Lab Interpretation Abnormal (test code = 18045-2) [facility] 08:53:13 Test Item Value Reference Range Interpretation Comments MAGNESIUM (test code = 0517062341) 2.3 mg/dL 1.7-2.4 Lab Interpretation (test code = Normal 24624-4) [facility] WITH [id number] 08:13:50 Test Item Value Reference Range Interpretation [...] (test code = 51.5 fL 39-49.9 H 01741-4) RDW-CV (test code = 15.5 % 12-15.5 788-0) PLT (test code = See_Comment L [Automated 777-3) message] The sy stem which generated this result transmitted reference range : 166 - 358 10*3/ ?L. The reference r josselyn was not used to interpret this result as normal/abnormal . MPV (test code = 9.0 fL 9.5-12.9 L 23567-8) NRBC/100 WBC (test See_Comment [Automat ed code = 7510435773) message] The system which generated this result transmitted reference range : 0.0 - 10.0 /100 WBCs. The refer ence range was not u sed to interpret th is result as normal/abnormal . NRBC x10^3 (test code See_Comment [Auto mated = 9958991873) message] The s ystem which generated this result transmitted reference range : 10*3/?L. The reference range was not used to interpret this result as normal/abnormal . GRAN MAT (NEUT) % 68.2 % (test code = 770-8) IMM GRAN % (test code 0.60 % = 0355328546) LYMPH % (test code = 20.0 % 736-9) MONO % (test code = 8.1 % 5905-5) EOS % (test code = 2.0 % 713-8) BASO % (test code = 1.1 % 706-2) GRAN MAT x10^3(ANC) 3.72 10*3/uL 1.88-7.09 (test code = 8530488263) IMM GRAN x10^3 (test 0.03 10*3/uL 0-0.06 code = 8993618428) LYMPH x10^3 (test code 1.09 10*3/uL 1.32-3.29 L = 731-0) MONO x10^3 (test code 0.44 10*3/uL 0.33-0.92 = 742-7) EOS x10^3 (test code = 0.11 10*3/uL 0.03-0.39 711-2) BASO x10^3 (test code 0.06 10*3/uL 0.01-0.07 = 704-7) Lab Interpretation Abnormal (test code = 50868-8) [facility] GLUCOSE (AUTOMATED)2022-02-21 02:41:53 Test Item Value Reference Range Interpretation Comments POCT GLU (test code = 7216751601) 175 mg/dL 70-110 H Lab Interpretation (test code = Abnormal 19268-6) [facility] Arterial Blood Gas.2022-02-20 23:27:23 Test Item Value Reference Range Interpretation Comments PH (test code = 2) 7.35-7.45 L PCO2 (test code = See_Comment H [Automate d message] 9360415268) The system [employer] generated this result transmitted ref erence range: 35 - 45 mmHg. The reference r josselyn was not used to interpret this result as normal/abnor mal. PO2 (test code = See_Comment H [Automated message] 1932248323) The system [employer] generated this result transmitted ref erence range: 80 - 100 mmHg. The reference r josselyn was not used to interpret this result as normal/abnor mal. HCO3 (test code = See_Comment H [Automate d message] 6514577038) The system [employer] generated this result transmitted ref erence range: 22 - 26 mEq/L. The reference r josselyn was not used to interpret this result as normal/abnor mal. BE (test code = See_Comment H [Automated message] 7966336822) The system [employer] generated this result transmitted ref erence range: -3.0 - 3 .0 mEq/L. The refe rence range was not u sed to interpret this result as normal/abnor mal. Lab Interpretation (test Abnormal code = 94690-2) [facility] WITH [id number] 20:32:34 Test Item Value Reference Range Interpretation [...] (test code = 51.8 fL 39-49.9 H 47542-8) RDW-CV (test code = 15.7 % 12-15.5 H 788-0) PLT (test code = See_Comment [Automated 777-3) message] The sy stem which generated this result transmitted reference range : 166 - 358 10*3/ ?L. The reference r josselyn was not used to interpret this result as normal/abnormal . MPV (test code = 8.9 fL 9.5-12.9 L 38965-2) NRBC/100 WBC (test See_Comment [Automat ed code = 7820348739) message] The system which generated this result transmitted reference range : 0.0 - 10.0 /100 WBCs. The refer ence range was not u sed to interpret th is result as normal/abnormal . NRBC x10^3 (test code See_Comment [Auto mated = 3025113812) message] The s ystem which generated this result transmitted reference range : 10*3/?L. The reference range was not used to interpret this result as normal/abnormal . GRAN MAT (NEUT) % 72.1 % (test code = 770-8) IMM GRAN % (test code 1.20 % = 8532007875) LYMPH % (test code = 16.2 % 736-9) MONO % (test code = 7.1 % 5905-5) EOS % (test code = 2.3 % 713-8) BASO % (test code = 1.1 % 706-2) GRAN MAT x10^3(ANC) 7.28 10*3/uL 1.88-7.09 H (test code = 4196228599) IMM GRAN x10^3 (test 0.12 10*3/uL 0-0.06 H code = 6003290907) LYMPH x10^3 (test code 1.63 10*3/uL 1.32-3.29 = 731-0) MONO x10^3 (test code 0.72 10*3/uL 0.33-0.92 = 742-7) EOS x10^3 (test code = 0.23 10*3/uL 0.03-0.39 711-2) BASO x10^3 (test code 0.11 10*3/uL 0.01-0.07 H = 704-7) Lab Interpretation Abnormal (test code = 63154-1) [facility] GLUCOSE (AUTOMATED)2022-02-17 21:46:17 Test Item Value Reference Range Interpretation Comments POCT GLU (test code = 6275783848) 181 mg/dL 70-110 H Lab Interpretation (test code = Abnormal 90452-3) [facility] GLUCOSE (AUTOMATED)2022-02-17 17:09:48 Test Item Value Reference Range Interpretation Comments POCT GLU (test code = 3425832085) 191 mg/dL 70-110 H Lab Interpretation (test code = Abnormal 06818-6) [facility] GLUCOSE (AUTOMATED)2022-02-17 13:07:24 Test Item Value Reference Range Interpretation Comments POCT GLU (test code = 0074795157) 185 mg/dL 70-110 H Lab Interpretation (test code = Abnormal 95099-9) [facility] [id number] 02:02:05 Test Item Value Reference Range Interpretation Comments Blood Culture-Aerobic No organisms No growth Previo us (test code = 58156-0) isolated prelim inary verified result was Culture [...] Culture-Anaerobic isolated preliminar y (test code = 17158-6) verifi ed result was Culture In Progress on 02/12/2022 at 00 01 CDTPrevious preliminary verified result was No growth a t 24 hours on 02/12/2022 at 21 01 CDTPrevious preliminary verified result was No growth a t 48 hours on 02/13/2022 at 21 01 CDTPrevious preliminary verified result was No growth a t 72 hours on 02/14/2022 at 01 CDT Lab Interpretation Normal (test code = 55577-9) [facility] GLUCOSE (AUTOMATED)2022-02-17 00:50:32 Test Item Value Reference Range Interpretation Comments POCT GLU (test code = 2883677249) 152 mg/dL 70-110 H Lab Interpretation (test code = Abnormal 90639-5) [facility] GLUCOSE (AUTOMATED)2022-02-16 21:47:16 Test Item Value Reference Range Interpretation Comments POCT GLU (test code = 8858246628) 183 mg/dL 70-110 H Lab Interpretation (test code = Abnormal 67036-4) [facility] GLUCOSE (AUTOMATED)2022-02-16 17:08:26 Test Item Value Reference Range Interpretation Comments POCT GLU (test code = 8948392658) 160 mg/dL 70-110 H Lab Interpretation (test code = Abnormal 73451-8) [facility] GLUCOSE (AUTOMATED)2022-02-16 13:06:01 Test Item Value Reference Range Interpretation Comments POCT GLU (test code = 5760236034) 140 mg/dL 70-110 H Lab Interpretation (test code = Abnormal 19277-2) [facility] GLUCOSE (AUTOMATED)2022-02-16 08:33:41 Test Item Value Reference Range Interpretation Comments POCT GLU (test code = 2603148624) 193 mg/dL 70-110 H Lab Interpretation (test code = Abnormal 78999-1) [facility] GLUCOSE (AUTOMATED)2022-02-16 04:30:38 Test Item Value Reference Range Interpretation Comments POCT GLU (test code = 1375742337) 167 mg/dL 70-110 H Lab Interpretation (test code = Abnormal 00199-0) [facility] GLUCOSE (AUTOMATED)2022-02-16 00:40:50 Test Item Value Reference Range Interpretation Comments POCT GLU (test code = 3924076594) 190 mg/dL 70-110 H Lab Interpretation (test code = Abnormal 74956-9) [facility] GLUCOSE (AUTOMATED)2022-02-15 21:26:07 Test Item Value Reference Range Interpretation Comments POCT GLU (test code = 8583171192) 189 mg/dL 70-110 H Lab Interpretation (test code = Abnormal 78781-9) [facility] GLUCOSE (AUTOMATED)2022-02-15 17:00:52 Test Item Value Reference Range Interpretation Comments POCT GLU (test code = 1966741778) 213 mg/dL 70-110 H Lab Interpretation (test code = Abnormal 64187-3) [facility] GLUCOSE (AUTOMATED)2022-02-15 12:48:04 Test Item Value Reference Range Interpretation Comments POCT GLU (test code = 4145757978) 145 mg/dL 70-110 H Lab Interpretation (test code = Abnormal 58499-1) [facility]. METABOLIC PANEL (91705)2022-02-15 08:28:08 Test Item Value Reference Range Interpretation Comments NA (test code = 140 mmol/L 135-145 5408965566) K (test code = 4.0 mmol/L 3.5-5 8478085492) CL (test code = 100 mmol/L 98-108 1400195076) CO2 TOTAL (test code = 35 mmol/L 23-31 H 0434530918) AGAP (test code = 2-16 6479113811) BUN (test code = 12 mg/dL 7-23 0964348499) GLUCOSE (test code = 161 mg/dL 70-110 H 1719447277) CREATININE (test code = 1.20 mg/dL 0.5-1.04 H 7222958222) TOTAL BILI (test code = 0.6 mg/dL 0.1-1.5 9676982335) CALCIUM (test code = 8.7 mg/dL 8.6-10.6 0334532466) T PROTEIN (test code = 6.8 g/dL 6.3-8.2 8031078820) ALBUMIN (test code = 3.7 g/dL 3.5-5 0943226911) ALK PHOS (test code = 121 U/L 34-122 5348231509) ALTv (test code = 35 U/L 5-35 1742-6) AST(SGOT) (test code = 34 U/L 13-40 7249358886) eGFR (test code = mL/min/1.73m2 1905849274) JENNIFFER (test code = JENNIFFER) Association of [...] tests). Lab Interpretation Abnormal (test code = 68761-4) [facility]28:08 Test Item Value Reference Range Interpretation Comments MAGNESIUM (test code = 8780622345) 2.4 mg/dL 1.7-2.4 Lab Interpretation (test code = Normal 24727-6) [facility] [id number] 08:07:28 Test Item Value Reference Range Interpretation Comments WBC (test code = 6690-2) See_Comment [A utomated message] The system [employer] generated this result transmit alden reference range : 4.30 - 11.10 10*3/?L. The reference range was not used to interpret this result as normal/abnormal . RBC (test code = 789-8) See_Comment L [Au tomated message] The system [employer] generated this result transmit alden reference range [...] 777-3) See_Comment [Au tomated message] The system [employer] generated this result transmit alden reference range : 166 - 358 10*3/?L. The reference range was not used to interpret this result as normal/abnormal . MPV (test code = 8.9 fL 9.5-12.9 L 82839-6) RDW-CV (test code = 16.2 % 12-15.5 H 788-0) RDW-SD (test code = 52.6 fL 39-49.9 H 57004-8) NRBC x10^3 (test code = See_Comment [Au tomated message] 5210623554) The system [employer] generated this result transmit alden reference range : 10*3/?L. The reference range was not used to interpret this result as normal/abnormal . NRBC/100 WBC (test code See_Comment [Au tomated message] = 2011661863) The system [facility] generated this result transmit alden reference range : 0.0 - 10.0 /100 WBC s. The reference r josselyn was not used to interpret this result as normal/abnormal . IPF % (test code = 9003969846) Lab Interpretation (test Abnormal code = 16904-3) [facility] GLUCOSE (AUTOMATED)2022-02-15 08:03:53 Test Item Value Reference Range Interpretation Comments POCT GLU (test code = 7737730882) 179 mg/dL 70-110 H Lab Interpretation (test code = Abnormal 06588-5) [facility] GLUCOSE (AUTOMATED)2022-02-15 04:16:20 Test Item Value Reference Range Interpretation Comments POCT GLU (test code = 9879254893) 215 mg/dL 70-110 H Lab Interpretation (test code = Abnormal 65092-7) [facility] GLUCOSE (AUTOMATED)2022-02-15 00:50:30 Test Item Value Reference Range Interpretation Comments POCT GLU (test code = 5547012355) 229 mg/dL 70-110 H Lab Interpretation (test code = Abnormal 04867-4) [facility] GLUCOSE (AUTOMATED)2022-02-14 21:23:56 Test Item Value Reference Range Interpretation Comments POCT GLU (test code = 5028863541) 214 mg/dL 70-110 H Lab Interpretation (test code = Abnormal 91114-1) [facility] GLUCOSE (AUTOMATED)2022-02-14 19:38:54 Test Item Value Reference Range Interpretation Comments POCT GLU (test code = 4260913828) 236 mg/dL 70-110 H Lab Interpretation (test code = Abnormal 91935-0) [facility] GLUCOSE (AUTOMATED)2022-02-14 16:28:53 Test Item Value Reference Range Interpretation Comments POCT GLU (test code = 9558393594) 245 mg/dL 70-110 H Lab Interpretation (test code = Abnormal 52510-8) [facility] GLUCOSE (AUTOMATED)2022-02-14 14:17:55 Test Item Value Reference Range Interpretation Comments POCT GLU (test code = 3953537409) 259 mg/dL 70-110 H Lab Interpretation (test code = Abnormal 39706-9) [facility]. METABOLIC PANEL (91096)2022-02-14 10:33:43 Test Item Value Reference Range Interpretation Comments NA (test code = 139 mmol/L 135-145 6376820228) K (test code = 3.9 mmol/L 3.5-5 1130492074) CL (test code = 102 mmol/L 98-108 6858037268) CO2 TOTAL (test code = 33 mmol/L 23-31 H 3249149525) AGAP (test code = 2-16 9604506001) BUN (test code = 11 mg/dL 7-23 9326714004) GLUCOSE (test code = 162 mg/dL 70-110 H 7046793245) CREATININE (test code = 1.05 mg/dL 0.5-1.04 H 9770507784) TOTAL BILI (test code = 0.5 mg/dL 0.1-1.3 3610398361) CALCIUM (test code = 8.2 mg/dL 8.6-10.6 L 7145247077) T PROTEIN (test code = 6.1 g/dL 6.3-8.2 L 5104320416) ALBUMIN (test code = 3.2 g/dL 3.5-5 L 2524040745) ALK PHOS (test code = 113 U/L 34-122 1788856224) ALTv (test code = 37 U/L 5-35 H 1742-6) AST(SGOT) (test code = 29 U/L 13-40 4691835403) eGFR (test code = mL/min/1.73m2 2882249146) JENNIFFER (test code = JENNIFFER) Association of [...] tests). Lab Interpretation Abnormal (test code = 58569-2) [facility]33[facility]43 Test Item Value Reference Range Interpretation Comments MAGNESIUM (test code = 1814060298) 2.2 mg/dL 1.7-2.4 Lab Interpretation (test code = Normal 49598-9) [facility] [id number] 10:26:41 Test Item Value Reference Range Interpretation [...] (test code = 51.8 fL 39-49.9 H 37384-1) RDW-CV (test code = 16.1 % 12-15.5 H 788-0) PLT (test code = See_Comment [Automated 777-3) message] The sy stem which generated this result transmitted reference range : 166 - 358 10*3/ ?L. The reference r josselyn was not used to interpret this result as normal/abnormal . MPV (test code = 9.5 fL 9.5-12.9 79333-1) NRBC/100 WBC (test See_Comment [Automat ed code = 5541036265) message] The system which generated this result transmitted reference range : 0.0 - 10.0 /100 WBCs. The refer ence range was not u sed to interpret th is result as normal/abnormal . NRBC x10^3 (test code See_Comment [Auto mated = 8202660758) message] The s ystem which generated this result transmitted reference range : 10*3/?L. The reference range was not used to interpret this result as normal/abnormal . GRAN MAT (NEUT) % 69.7 % (test code = 770-8) IMM GRAN % (test code 0.80 % = 4990885244) LYMPH % (test code = 19.6 % 736-9) MONO % (test code = 6.9 % 5905-5) EOS % (test code = 2.2 % 713-8) BASO % (test code = 0.8 % 706-2) GRAN MAT x10^3(ANC) 3.44 10*3/uL 1.88-7.09 (test code = 4178570413) IMM GRAN x10^3 (test 0.04 10*3/uL 0-0.06 code = 0345374821) LYMPH x10^3 (test code 0.97 10*3/uL 1.32-3.29 L = 731-0) MONO x10^3 (test code 0.34 10*3/uL 0.33-0.92 = 742-7) EOS x10^3 (test code = 0.11 10*3/uL 0.03-0.39 711-2) BASO x10^3 (test code 0.04 10*3/uL 0.01-0.07 = 704-7) Lab Interpretation Abnormal (test code = 40141-1) [facility] GLUCOSE (AUTOMATED)2022-02-14 08:19:03 Test Item Value Reference Range Interpretation Comments POCT GLU (test code = 8010070945) 180 mg/dL 70-110 H Lab Interpretation (test code = Abnormal 24725-6) [facility] GLUCOSE (AUTOMATED)2022-02-14 04:28:25 Test Item Value Reference Range Interpretation Comments POCT GLU (test code = 1126033517) 199 mg/dL 70-110 H Lab Interpretation (test code = Abnormal 80878-1) [facility] GLUCOSE (AUTOMATED)2022-02-14 00:57:11 Test Item Value Reference Range Interpretation Comments POCT GLU (test code = 9161394517) 203 mg/dL 70-110 H Lab Interpretation (test code = Abnormal 82125-4) [facility] GLUCOSE (AUTOMATED)2022-02-13 22:30:21 Test Item Value Reference Range Interpretation Comments POCT GLU (test code = 7133493236) 202 mg/dL 70-110 H Lab Interpretation (test code = Abnormal 05447-3) [facility] GLUCOSE (AUTOMATED)2022-02-13 17:30:07 Test Item Value Reference Range Interpretation Comments POCT GLU (test code = 2747755595) 180 mg/dL 70-110 H Lab Interpretation (test code = Abnormal 54187-8) [facility] GLUCOSE (AUTOMATED)2022-02-13 15:53:46 Test Item Value Reference Range Interpretation Comments POCT GLU (test code = 4943508759) 170 mg/dL 70-110 H Lab Interpretation (test code = Abnormal 25259-0) [facility] Arterial Blood Gas.2022-02-13 14:26:25 Test Item Value Reference Range Interpretation Comments PH (test code = 2) 7.35-7.45 PCO2 (test code = See_Comment [Automate d message] 2815330176) The system [employer] generated this result transmitted ref erence range: 35 - 45 mmHg. The reference r josselyn was not used to interpret this result as normal/abnor mal. PO2 (test code = See_Comment L [Automated message] 7661545005) The system [employer] generated this result transmitted ref erence range: 80 - 100 mmHg. The reference r josselyn was not used to interpret this result as normal/abnor mal. HCO3 (test code = See_Comment H [Automate d message] 3813146014) The system [employer] generated this result transmitted ref erence range: 22 - 26 mEq/L. The reference r josselyn was not used to interpret this result as normal/abnor mal. BE (test code = See_Comment [Automated message] 3851517689) The system [employer] generated this result transmitted ref erence range: -3.0 - 3 .0 mEq/L. The refe rence range was not u sed to interpret this result as normal/abnor mal. Lab Interpretation (test Abnormal code = 23902-4) [facility] GLUCOSE (AUTOMATED)2022-02-13 14:09:26 Test Item Value Reference Range Interpretation Comments POCT GLU (test code = 0230399210) 145 mg/dL 70-110 H Lab Interpretation (test code = Abnormal 36012-0) [facility] GLUCOSE (AUTOMATED)2022-02-13 12:46:36 Test Item Value Reference Range Interpretation Comments POCT GLU (test code = 4093157568) 133 mg/dL 70-110 H Lab Interpretation (test code = Abnormal 87622-7) [facility] GLUCOSE (AUTOMATED)2022-02-13 11:45:25 Test Item Value Reference Range Interpretation Comments POCT GLU (test code = 8177515683) 127 mg/dL 70-110 H Lab Interpretation (test code = Abnormal 63503-6) [facility] METABOLIC PANEL (NA, K, CL, CO2, GLUCOSE, BUN, CREATININE, CA)2022-02-13 11:17:34 Test Item Value Reference Range Interpretation Comments NA (test code = 140 mmol/L 135-145 8729183757) K (test code = 3.8 mmol/L 3.5-5 9129455111) CL (test code = 103 mmol/L 98-108 1143719885) CO2 TOTAL (test code = 35 mmol/L 23-31 H 1643905037) AGAP (test code = 2-16 6536065136) BUN (test code = 14 mg/dL 7-23 1861888667) GLUCOSE (test code = 107 mg/dL 70-110 3366123986) CREATININE (test code = 0.94 mg/dL 0.5-1.04 2961757150) CALCIUM (test code = 8.2 mg/dL 8.6-10.6 L 1637467368) eGFR (test code = mL/min/1.73m2 8625359866) JENNIFFER (test code = JENNIFFER) Association of [...] tests). Lab Interpretation Abnormal (test code = 91267-0) [facility] 11:17:34 Test Item Value Reference Range Interpretation Comments MAGNESIUM (test code = 1700518500) 2.1 mg/dL 1.7-2.4 Lab Interpretation (test code = Normal 41723-0) [facility] WITH [id number] 10:41:15 Test Item Value Reference Range Interpretation Comments WBC (test code = See_Comment [Automated 9405-2) message] The sy stem which generated this result transmitted reference range : 4.30 - 11.10 10*3/?L. The reference range was not used to interpret this result as normal/abnormal . RBC (test code = See_Comment L [Automated 909-8) message] The sy stem which generated this [...] (test code = 50.6 fL 39-49.9 H 13024-5) RDW-CV (test code = 15.6 % 12-15.5 H 788-0) PLT (test code = See_Comment [Automated 777-3) message] The sy stem which generated this result transmitted reference range : 166 - 358 10*3/ ?L. The reference r josselyn was not used to interpret this result as normal/abnormal . MPV (test code = 9.5 fL 9.5-12.9 43179-1) NRBC/100 WBC (test See_Comment [Automat ed code = 1678089358) message] The system which generated this result transmitted reference range : 0.0 - 10.0 /100 WBCs. The refer ence range was not u sed to interpret th is result as normal/abnormal . NRBC x10^3 (test code See_Comment [Auto mated = 4437376969) message] The s ystem which generated this result transmitted reference range : 10*3/?L. The reference range was not used to interpret this result as normal/abnormal . GRAN MAT (NEUT) % 74.0 % (test code = 770-8) IMM GRAN % (test code 0.50 % = 0898160778) LYMPH % (test code = 15.7 % 736-9) MONO % (test code = 7.4 % 5905-5) EOS % (test code = 1.7 % 713-8) BASO % (test code = 0.7 % 706-2) GRAN MAT x10^3(ANC) 4.37 10*3/uL 1.88-7.09 (test code = 3586095403) IMM GRAN x10^3 (test 0.03 10*3/uL 0-0.06 code = 2384215937) LYMPH x10^3 (test code 0.93 10*3/uL 1.32-3.29 L = 731-0) MONO x10^3 (test code 0.44 10*3/uL 0.33-0.92 = 742-7) EOS x10^3 (test code = 0.10 10*3/uL 0.03-0.39 711-2) BASO x10^3 (test code 0.04 10*3/uL 0.01-0.07 = 704-7) Lab Interpretation Abnormal (test code = 74394-3) [facility] GLUCOSE (AUTOMATED)2022-02-13 09:46:08 Test Item Value Reference Range Interpretation Comments POCT GLU (test code = 1692614845) 118 mg/dL 70-110 H Lab Interpretation (test code = Abnormal 06489-7) [facility] GLUCOSE (AUTOMATED)2022-02-13 08:49:55 Test Item Value Reference Range Interpretation Comments POCT GLU (test code = 6373877187) 122 mg/dL 70-110 H Lab Interpretation (test code = Abnormal 73543-1) [facility] GLUCOSE (AUTOMATED)2022-02-13 08:00:27 Test Item Value Reference Range Interpretation Comments POCT GLU (test code = 0765666202) 140 mg/dL 70-110 H Lab Interpretation (test code = Abnormal 10416-4) [facility] GLUCOSE (AUTOMATED)2022-02-13 07:07:01 Test Item Value Reference Range Interpretation Comments POCT GLU (test code = 2691647073) 155 mg/dL 70-110 H Lab Interpretation (test code = Abnormal 67567-4) [facility] GLUCOSE (AUTOMATED)2022-02-13 05:57:42 Test Item Value Reference Range Interpretation Comments POCT GLU (test code = 1603522054) 186 mg/dL 70-110 H Lab Interpretation (test code = Abnormal 98208-3) [facility] GLUCOSE (AUTOMATED)2022-02-13 03:40:10 Test Item Value Reference Range Interpretation Comments POCT GLU (test code = 9290996124) 245 mg/dL 70-110 H Lab Interpretation (test code = Abnormal 02759-7) [facility] GLUCOSE (AUTOMATED)2022-02-13 03:35:28 Test Item Value Reference Range Interpretation Comments POCT GLU (test code = 2035999080) 239 mg/dL 70-110 H Lab Interpretation (test code = Abnormal 45758-2) [facility] GLUCOSE (AUTOMATED)2022-02-13 01:48:01 Test Item Value Reference Range Interpretation Comments POCT GLU (test code = 0703428480) 184 mg/dL 70-110 H Lab Interpretation (test code = Abnormal 87144-5) [facility] GLUCOSE (AUTOMATED)2022-02-13 00:35:17 Test Item Value Reference Range Interpretation Comments POCT GLU (test code = 4835764183) 166 mg/dL 70-110 H Lab Interpretation (test code = Abnormal 33373-5) [facility] GLUCOSE (AUTOMATED)2022-02-12 23:26:35 Test Item Value Reference Range Interpretation Comments POCT GLU (test code = 1257301729) 149 mg/dL 70-110 H Lab Interpretation (test code = Abnormal 13737-2) [facility] GLUCOSE (AUTOMATED)2022-02-12 22:21:08 Test Item Value Reference Range Interpretation Comments POCT GLU (test code = 8656228772) 133 mg/dL 70-110 H Lab Interpretation (test code = Abnormal 16855-1) [facility] GLUCOSE (AUTOMATED)2022-02-12 21:06:47 Test Item Value Reference Range Interpretation Comments POCT GLU (test code = 5609642649) 130 mg/dL 70-110 H Lab Interpretation (test code = Abnormal 24373-1) [facility] GLUCOSE (AUTOMATED)2022-02-12 20:04:32 Test Item Value Reference Range Interpretation Comments POCT GLU (test code = 4381926952) 122 mg/dL 70-110 H Lab Interpretation (test code = Abnormal 01077-0) [facility] GLUCOSE (AUTOMATED)2022-02-12 19:08:55 Test Item Value Reference Range Interpretation Comments POCT GLU (test code = 2198610761) 133 mg/dL 70-110 H Lab Interpretation (test code = Abnormal 75805-6) [facility] GLUCOSE (AUTOMATED)2022-02-12 18:20:07 Test Item Value Reference Range Interpretation Comments POCT GLU (test code = 7090970070) 136 mg/dL 70-110 H Lab Interpretation (test code = Abnormal 35251-3) [facility] GLUCOSE (AUTOMATED)2022-02-12 17:19:20 Test Item Value Reference Range Interpretation Comments POCT GLU (test code = 0074821835) 155 mg/dL 70-110 H Lab Interpretation (test code = Abnormal 38062-1) [facility] GLUCOSE (AUTOMATED)2022-02-12 16:21:39 Test Item Value Reference Range Interpretation Comments POCT GLU (test code = 2079413103) 143 mg/dL 70-110 H Lab Interpretation (test code = Abnormal 61671-8) [facility] HospitalBetahydroxy-Yhqzvjes1334-33-54 16:14:56 Test Item Value Reference Range Interpretation Comments BOH (test code = 0.2 mmol/L 6544837710) JENNIFFER (test code = Normal Ranges: ? ? JENNIFFER) Nonfasting ? Less than 0.1 mmol/L ? ? Overnight Fast ? ? ? Less than 0.4 mmol/L ? ? Fasting (1-2 weeks) ?6-8 mmol/L Test developed and characteristics determined by [facility] Laboratory Services. [facility] GLUCOSE (AUTOMATED)2022-02-12 15:53:18 Test Item Value Reference Range Interpretation Comments POCT GLU (test code = 5517798345) 70-110 HH Lab Interpretation (test code = Abnormal 38452-0) [facility] GLUCOSE (AUTOMATED)2022-02-12 14:17:34 Test Item Value Reference Range Interpretation Comments POCT GLU (test code = 0206312092) 232 mg/dL 70-110 H Lab Interpretation (test code = Abnormal 52782-6) [facility] GLUCOSE (AUTOMATED)2022-02-12 13:17:46 Test Item Value Reference Range Interpretation Comments POCT GLU (test code = 7541547514) 295 mg/dL 70-110 H Lab Interpretation (test code = Abnormal 81215-0) [facility] (NA, K, CL, CO2, GLUCOSE, BUN, CREATININE, CA)2022-02-12 12:56:38 Test Item Value Reference Range Interpretation Comments NA (test code = 138 mmol/L 135-145 9494515979) K (test code = 4.0 mmol/L 3.5-5 7746869325) CL (test code = 98 mmol/L 98-108 7228982479) CO2 TOTAL (test code = 31 mmol/L 23-31 2551697231) AGAP (test code = 2-16 7965876630) BUN (test code = 20 mg/dL 7-23 4261713578) GLUCOSE (test code = 279 mg/dL 70-110 H 3122292445) CREATININE (test code = 1.08 mg/dL 0.5-1.04 H 3080262912) CALCIUM (test code = 8.8 mg/dL 8.6-10.6 4916656519) eGFR (test code = mL/min/1.73m2 8380490669) JENNIFFER (test code = JENNIFFER) Association of [...] tests). Lab Interpretation Abnormal (test code = 40194-0) [facility] 12:44:19 Test Item Value Reference Range Interpretation Comments POCT GLU (test code = 3761831659) 299 mg/dL 70-110 H Lab Interpretation (test code = Abnormal 73797-6) [facility] GLUCOSE (AUTOMATED)2022-02-12 12:19:29 Test Item Value Reference Range Interpretation Comments POCT GLU (test code = 4067396777) 283 mg/dL 70-110 H Lab Interpretation (test code = Abnormal 24501-4) [facility] GLUCOSE (AUTOMATED)2022-02-12 11:22:10 Test Item Value Reference Range Interpretation Comments POCT GLU (test code = 5099018833) 378 mg/dL 70-110 H Lab Interpretation (test code = Abnormal 74845-3) [facility] GLUCOSE (AUTOMATED)2022-02-12 10:18:29 Test Item Value Reference Range Interpretation Comments POCT GLU (test code = 3719667063) 376 mg/dL 70-110 H Lab Interpretation (test code = Abnormal 36351-1) [facility] HospitalOsmolality [id number] 09:27:10 Test Item Value Reference Range Interpretation Comments OSMOLALITY (test code = See_Comment [Au tomated message] 2692-2) The system [employer] generated this result transmitted ref erence range: 278 - 30 5 mOsm/kg. The reference range was not used to int erpret this result as normal/abnormal . Lab Interpretation (test Abnormal code = 31256-6) [facility] METABOLIC PANEL (NA, K, CL, CO2, GLUCOSE, BUN, CREATININE, CA)2022-02-12 09:22:44 Test Item Value Reference Range Interpretation Comments NA (test code = 135 mmol/L 135-145 9260633796) K (test code = 4.7 mmol/L 3.5-5 2379242045) CL (test code = 93 mmol/L 98-108 L 5354703761) CO2 TOTAL (test code = 33 mmol/L 23-31 H 3093855037) AGAP (test code = 2-16 1835750520) BUN (test code = 22 mg/dL 7-23 3102851037) GLUCOSE (test code = 474 mg/dL 70-110 HH 0538073335) CREATININE (test code = 1.17 mg/dL 0.5-1.04 H 7822029118) CALCIUM (test code = 8.9 mg/dL 8.6-10.6 1798910858) eGFR (test code = mL/min/1.73m2 5814792631) JENNIFFER (test code = JENNIFFER) Association of [...] tests). Lab Interpretation Abnormal (test code = 36195-8) [facility]22-02-12 09:19:06 Test Item Value Reference Range Interpretation Comments POCT GLU (test code = 0724748867) 478 mg/dL 70-110 HH Lab Interpretation (test code = Abnormal 87078-0) [facility] 09:16:19 Test Item Value Reference Range Interpretation Comments PHOSPHORUS (test code = 3249313697) 5.9 mg/dL 2.5-5 H Lab Interpretation (test code = Abnormal 93673-1) [facility] 09:16:19 Test Item Value Reference Range Interpretation Comments MAGNESIUM (test code = 8299622636) 2.1 mg/dL 1.7-2.4 Lab Interpretation (test code = Normal 43386-5) [facility] HospitalGlycosylated Hemoglobin (A1C)2022-02-12 09:10:46 Test Item Value Reference Range Interpretation Comments HGB A1C (test code = 9.7 % 4-5.7 H 4548-4) JENNIFFER (test code = JENNIFFER) Reference RangesNormal: <5.7%Prediabetes: 5.7 - 6.4%Diabetes: > 6.5% Lab Interpretation (test Abnormal code = 11821-9) [facility] WITH [id number] 08:28:29 Test Item Value Reference Range Interpretation [...] RDW-SD (test code = 49.8 fL 39-49.9 42106-5) RDW-CV (test code = 15.7 % 12-15.5 H 788-0) PLT (test code = See_Comment [Automated 777-3) message] The system which generated this result transmit alden reference range : 166 - 358 10*3/ ?L. The reference range was not u sed to interpret th is result as normal/abnormal . MPV (test code = 9.7 fL 9.5-12.9 56940-6) NRBC/100 WBC (test See_Comment [Automat ed code = 3707546212) message] The system which generated this result transmit alden reference range : 0.0 - 10.0 /100 WBCs. The reference range was not used to interpret this result as normal/abnormal . NRBC x10^3 (test code See_Comment [Auto mated = 7789441735) message] The system which generated this result transmit alden reference range : 10*3/?L. The reference range was not used to interpret this result as normal/abnormal . GRAN MAT (NEUT) % 89.9 % (test code = 770-8) IMM GRAN % (test code 0.90 % = 8533717998) LYMPH % (test code = 3.4 % 736-9) MONO % (test code = 5.3 % 5905-5) EOS % (test code = 0.1 % 713-8) BASO % (test code = 0.4 % 706-2) GRAN MAT x10^3(ANC) 11.94 10*3/uL 1.88-7.09 H (test code = 4738981657) IMM GRAN x10^3 (test 0.12 10*3/uL 0-0.06 H code = 0454392942) LYMPH x10^3 (test code 0.45 10*3/uL 1.32-3.29 L = 731-0) MONO x10^3 (test code 0.70 10*3/uL 0.33-0.92 = 742-7) EOS x10^3 (test code = 0.03-0.39 L 711-2) BASO x10^3 (test code 0.05 10*3/uL 0.01-0.07 = 704-7) Lab Interpretation Abnormal (test code = 75213-9) [facility] GLUCOSE (AUTOMATED)2022-02-12 04:57:17 Test Item Value Reference Range Interpretation Comments POCT GLU (test code = 0598909100) 592 mg/dL 70-110 HH Lab Interpretation (test code = Abnormal 77359-3) [facility] GLUCOSE (AUTOMATED)2022-02-12 04:57:17 Test Item Value Reference Range Interpretation Comments POCT GLU (test code = 9497082259) 559 mg/dL 70-110 HH Lab Interpretation (test code = Abnormal 29226-8) [facility] HospitalTHYROID STIMULATING [id number] 02:15:56 Test Item Value Reference Range Interpretation Comments TSH (test code = See_Comment [Automated message] 6595504150) The system [employer] generated this result transmitted ref erence range: 0.45 - 4 .70 mIU/L. The refe rence range was not u sed to interpret this result as normal/abnor mal. Lab Interpretation (test Normal code = 11435-0) [facility] [id number] 02:02:37 Test Item Value Reference Range Interpretation Comments FREE T4 (test code = See_Comment [Autom ated message] 4346003059) The system [employer] generated this result transmitted ref erence range: 0.78 - 2 .20 ng/dL:. The ref erence range was not u sed to interpret this result as normal/abnor mal. Lab Interpretation (test Normal code = 60365-5) [facility]TR[facility]IN [id number] 01:57:33 Test Item Value Reference Interpretation Comments Range TROPONIN I (test 0.001 ng/mL See_Comment [Automated code = 3798910098) message] The system which generated this result [...] biotin. Lab Interpretation Normal (test code = 36835-2) [facility]. METABOLIC PANEL (07353)2022-02-12 01:55:07 Test Item Value Reference Range Interpretation Comments NA (test code = 134 mmol/L 135-145 L 4187871289) K (test code = 4.4 mmol/L 3.5-5 4083314206) CL (test code = 95 mmol/L 98-108 L 9005181342) CO2 TOTAL (test code = 22 mmol/L 23-31 L 5129702859) AGAP (test code = 2-16 H 4966819754) BUN (test code = 22 mg/dL 7-23 2794642421) GLUCOSE (test code = 646 mg/dL 70-110 HH 1788968125) CREATININE (test code = 1.19 mg/dL 0.5-1.04 H 0672336919) TOTAL BILI (test code = 1.1 mg/dL 0.1-1.2 2925804782) CALCIUM (test code = 9.1 mg/dL 8.6-10.6 6381577382) T PROTEIN (test code = 7.0 g/dL 6.3-8.2 4134752298) ALBUMIN (test code = 4.1 g/dL 3.5-5 4738255780) ALK PHOS (test code = 245 U/L 34-122 H 9247614900) ALTv (test code = 78 U/L 5-35 H 1742-6) AST(SGOT) (test code = 76 U/L 13-40 H 3138500227) eGFR (test code = mL/min/1.73m2 6184078169) JENNIFFER (test code = JENNIFFER) Association of [...] tests). Lab Interpretation Abnormal (test code = 44194-5) [facility]N-[facility]MINAL [id number] 01:54:57 Test Item Value Reference Range Interpretation Comments NT-proBNP (test code 491 pg/mL See_Comment H [Autom ated = 6858774549) message] The system which generated this result transmitted reference range : <=125. The reference range was not used to interpret this result as normal/abnormal . JENNIFFER (test code = JENNIFFER) Biotin has been reported to cause a negative bias, interpret results relative to patient's use of biotin. Lab Interpretation Abnormal (test code = 12925-5) [facility]ETHANOL2022-[facility]-21 01:47:18 ALCOHOL<10mg/dL02/11/2022 8:47 PM [facility]<10 Xjfbprpy36-921 Toxic>100 Depression of DIRECTOR OF RETENTION>400 Fatalities ReportedUnTexas [facility] StephenvilleAMMONIA, [id number] 01:46:13 Test Item Value Reference Range Interpretation Comments AMMONIA (test code = 3429191547) 28 umol/L 9-33 Lab Interpretation (test code = Normal 13373-0) [facility] HospitalACTIVATED PARTIAL THRMPLAS [id number] 01:39:11 Test Item Value Reference Range Interpretation Comments APTT Patient (test See_Comment [Automat ed code = 3173-2) message] The system which generated this result transmitted reference range : 23 - 38 Seconds . The reference range was not used to interpr et this result as normal/abnormal . JENNIFFER (test code = JENNIFFER) The [facility] patient population mean normal value for aPTT is 30 seconds. Lab Interpretation Normal (test code = 28974-7) [facility] WITH [id number] 01:37:15 Test Item Value Reference Range Interpretation [...] (test code = 50.9 fL 39-49.9 H 08241-5) RDW-CV (test code = 15.8 % 12-15.5 H 788-0) PLT (test code = See_Comment [Automated 777-3) message] The sy stem which generated this result transmitted reference range : 166 - 358 10*3/ ?L. The reference r josselyn was not used to interpret this result as normal/abnormal . MPV (test code = 9.9 fL 9.5-12.9 31595-8) NRBC/100 WBC (test See_Comment [Automat ed code = 1607267517) message] The system which generated this result transmitted reference range : 0.0 - 10.0 /100 WBCs. The refer ence range was not u sed to interpret th is result as normal/abnormal . NRBC x10^3 (test code See_Comment [Auto mated = 2255522779) message] The s ystem which generated this result transmitted reference range : 10*3/?L. The reference range was not used to interpret this result as normal/abnormal . GRAN MAT (NEUT) % 78.5 % (test code = 770-8) IMM GRAN % (test code 1.20 % = 6548388036) LYMPH % (test code = 12.2 % 736-9) MONO % (test code = 6.4 % 5905-5) EOS % (test code = 1.0 % 713-8) BASO % (test code = 0.7 % 706-2) GRAN MAT x10^3(ANC) 8.80 10*3/uL 1.88-7.09 H (test code = 7979017107) IMM GRAN x10^3 (test 0.14 10*3/uL 0-0.06 H code = 6991223303) LYMPH x10^3 (test code 1.37 10*3/uL 1.32-3.29 = 731-0) MONO x10^3 (test code 0.72 10*3/uL 0.33-0.92 = 742-7) EOS x10^3 (test code = 0.11 10*3/uL 0.03-0.39 711-2) BASO x10^3 (test code 0.08 10*3/uL 0.01-0.07 H = 704-7) Lab Interpretation Abnormal (test code = 98306-6) [facility] HospitalPROTHROMBIN TIME / [id number] 01:36:50 Test Item Value Reference Range Interpretation [...] tions. Lab Interpretation (test Normal code = 56718-3) [facility] 18:41:03 Test Item Value Reference Range Interpretation Comments POCT GLU (test code = 0388376754) 241 mg/dL 70-110 H Lab Interpretation (test code = Abnormal 95060-4) [facility] [id number] 14:36:01 Test Item Value Reference Range Interpretation Comments SPUTUM CULTURE 1+ Respiratory iveth: (test code = 622-1) Commensal upper respiratory microorganisms only. Gram stain (test Few Epithelial cells code = 664-3) JENNIFFER (test code = Bacterial pathogens JENNIFFER) associated with lower respiratory infections were not identified, which include Pseudomonas aeruginosa and Staphylococcus aureus (MRSA or MSSA). [facility] [id number] 14:27:39 Test Item Value Reference Range Interpretation Comments NT-proBNP (test code 2930 pg/mL See_Comment H [Autom ated = 6078421956) message] The system which generated this result transmitted reference range : <=125. The reference range was not used to interpret this result as normal/abnormal . JENNIFFER (test code = JENNIFFER) Biotin has been reported to cause a negative bias, interpret results relative to patient's use of biotin. Lab Interpretation Abnormal (test code = 95487-4) [facility]22-[facility]-31 13:06:37 Test Item Value Reference Range Interpretation Comments POCT GLU (test code = 2558419944) 144 mg/dL 70-110 H Lab Interpretation (test code = Abnormal 95384-8) [facility] (NA, K, CL, CO2, GLUCOSE, BUN, CREATININE, CA)2022-01-31 11:52:51 Test Item Value Reference Range Interpretation Comments NA (test code = 139 mmol/L 135-145 9507212398) K (test code = 4.2 mmol/L 3.5-5.0 0776019278) CL (test code = 92 mmol/L 98-108 L 6051399549) CO2 TOTAL (test code = 39 mmol/L 23-31 H 4285264593) AGAP (test code = 2-16 4578982023) BUN (test code = 32 mg/dL 7-23 H 1939959545) GLUCOSE (test code = 183 mg/dL 70-110 H 0382184560) CREATININE (test code = 0.89 mg/dL 0.50-1.04 7691619071) CALCIUM (test code = 8.7 mg/dL 8.6-10.6 2050224578) eGFR (test code = mL/min/1.73m2 6807048450) JENNIFFER (test code = JENNIFFER) Association of [...] tests). Lab Interpretation Abnormal (test code = 02014-9) [facility] 11:45:09 Test Item Value Reference Range Interpretation Comments MAGNESIUM (test code = 1066087945) 2.4 mg/dL 1.7-2.4 Lab Interpretation (test code = Normal 02578-7) [facility]2022-[facility] 11:44:49 Test Item Value Reference Range Interpretation Comments PHOSPHORUS (test code = 1894252423) 3.3 mg/dL 2.5-5.0 Lab Interpretation (test code = Normal 49440-2) [facility]2022-01-30 21:23:07 Test Item Value Reference Range Interpretation Comments POCT GLU (test code = 9945442896) 357 mg/dL 70-110 H Lab Interpretation (test code = Abnormal 58375-5) [facility] GLUCOSE (AUTOMATED)2022-01-30 17:39:07 Test Item Value Reference Range Interpretation Comments POCT GLU (test code = 1302540543) 183 mg/dL 70-110 H Lab Interpretation (test code = Abnormal 11204-9) [facility] GLUCOSE (AUTOMATED)2022-01-30 17:39:07 Test Item Value Reference Range Interpretation Comments POCT GLU (test code = 7982626016) 275 mg/dL 70-110 H Lab Interpretation (test code = Abnormal 61748-0) [facility] GLUCOSE (AUTOMATED)2022-01-30 13:42:50 Test Item Value Reference Range Interpretation Comments POCT GLU (test code = 6099166329) 187 mg/dL 70-110 H Lab Interpretation (test code = Abnormal 84203-1) [facility] [id number] 10:44:07 Test Item Value Reference Range Interpretation Comments NT-proBNP (test code 3180 pg/mL See_Comment H [Autom ated = 2763234014) message] The system which generated this result transmitted reference range : <=125. The reference range was not used to interpret this result as normal/abnormal . JENNIFFER (test code = JENNIFFER) Biotin has been reported to cause a negative bias, interpret results relative to patient's use of biotin. Lab Interpretation Abnormal (test code = 88946-5) [facility]. METABOLIC PANEL (37885)2022-01-30 10:36:27 Test Item Value Reference Range Interpretation Comments NA (test code = 139 mmol/L 135-145 2444048201) K (test code = 3.7 mmol/L 3.5-5.0 8991134242) CL (test code = 92 mmol/L 98-108 L 2409637665) CO2 TOTAL (test code = 37 mmol/L 23-31 H 2298380221) AGAP (test code = 2-16 2015119338) BUN (test code = 22 mg/dL 7-23 9695630930) GLUCOSE (test code = 192 mg/dL 70-110 H 5815875382) CREATININE (test code = 1.04 mg/dL 0.50-1.04 0938386940) TOTAL BILI (test code = 0.7 mg/dL 0.1-1.2 8483560600) CALCIUM (test code = 8.3 mg/dL 8.6-10.6 L 4290975892) T PROTEIN (test code = 6.8 g/dL 6.3-8.2 3715146803) ALBUMIN (test code = 3.7 g/dL 3.5-5.0 0195361967) ALK PHOS (test code = 124 U/L 34-122 H 9579159381) ALTv (test code = 28 U/L 5-35 1742-6) AST(SGOT) (test code = 24 U/L 13-40 8568515381) eGFR (test code = mL/min/1.73m2 0611661043) JENNIFFER (test code = JENNIFFER) Association of [...] tests). Lab Interpretation Abnormal (test code = 85943-9) [facility] WITH [id number] 09:41:38 Test Item Value Reference Range Interpretation [...] RDW-SD (test code = 47.8 fL 39.0-49.9 92937-8) RDW-CV (test code = 15.0 % 12.0-15.5 788-0) PLT (test code = See_Comment [Automated 777-3) message] The sy stem which generated this result transmitted reference range : 166 - 358 10*3/ ?L. The reference r josselyn was not used to interpret this result as normal/abnormal . MPV (test code = 9.1 fL 9.5-12.9 L 19697-2) NRBC/100 WBC (test See_Comment [Automat ed code = 7784789844) message] The system which generated this result transmitted reference range : 0.0 - 10.0 /100 WBCs. The refer ence range was not u sed to interpret th is result as normal/abnormal . NRBC x10^3 (test code <0.01 See_Comment [Auto mated = 7483051862) message] The s ystem which generated this result transmitted reference range : 10*3/?L. The reference range was not used to interpret this result as normal/abnormal . GRAN MAT (NEUT) % 85.7 % (test code = 770-8) IMM GRAN % (test code 0.60 % = 6246580269) LYMPH % (test code = 7.1 % 736-9) MONO % (test code = 6.1 % 5905-5) EOS % (test code = 0.1 % 713-8) BASO % (test code = 0.4 % 706-2) GRAN MAT x10^3(ANC) 7.16 10*3/uL 1.88-7.09 H (test code = 7531269813) IMM GRAN x10^3 (test 0.05 10*3/uL 0.00-0.06 code = 8417202330) LYMPH x10^3 (test code 0.59 10*3/uL 1.32-3.29 L = 731-0) MONO x10^3 (test code 0.51 10*3/uL 0.33-0.92 = 742-7) EOS x10^3 (test code = <0.03 0.03-0.39 L 711-2) BASO x10^3 (test code 0.03 10*3/uL 0.01-0.07 = 704-7) Lab Interpretation Abnormal (test code = 75731-5) [facility] GLUCOSE (AUTOMATED)2022-01-30 03:06:20 Test Item Value Reference Range Interpretation Comments POCT GLU (test code = 3387709953) 336 mg/dL 70-110 H Lab Interpretation (test code = Abnormal 02980-4) [facility] 21:35:38 Test Item Value Reference Range Interpretation Comments PHOSPHORUS (test code = 0668421836) 4.3 mg/dL 2.5-5.0 Lab Interpretation (test code = Normal 97127-4) [facility] GLUCOSE (AUTOMATED)2022-01-29 21:21:35 Test Item Value Reference Range Interpretation Comments POCT GLU (test code = 0393248241) 354 mg/dL 70-110 H Lab Interpretation (test code = Abnormal 04412-2) [facility] GLUCOSE (AUTOMATED)2022-01-29 16:10:10 Test Item Value Reference Range Interpretation Comments POCT GLU (test code = 8500708504) 240 mg/dL 70-110 H Lab Interpretation (test code = Abnormal 47431-4) [facility] GLUCOSE (AUTOMATED)2022-01-29 15:16:07 Test Item Value Reference Range Interpretation Comments POCT GLU (test code = 5739406902) 219 mg/dL 70-110 H Lab Interpretation (test code = Abnormal 02580-8) [facility] GLUCOSE (AUTOMATED)2022-01-29 13:06:22 Test Item Value Reference Range Interpretation Comments POCT GLU (test code = 4537221880) 176 mg/dL 70-110 H Lab Interpretation (test code = Abnormal 83960-9) [facility] METABOLIC PANEL (02670)2022-01-29 10:31:34 Test Item Value Reference Range Interpretation Comments NA (test code = 141 mmol/L 135-145 6448542697) K (test code = 4.2 mmol/L 3.5-5.0 6002619728) CL (test code = 96 mmol/L 98-108 L 4104032957) CO2 TOTAL (test code = 37 mmol/L 23-31 H 2144323473) AGAP (test code = 2-16 5384061058) BUN (test code = 20 mg/dL 7-23 2388636729) GLUCOSE (test code = 179 mg/dL 70-110 H 0942092644) CREATININE (test code = 0.90 mg/dL 0.50-1.04 9658725493) TOTAL BILI (test code = 0.7 mg/dL 0.1-1.5 1107208502) CALCIUM (test code = 8.3 mg/dL 8.6-10.6 L 6580654547) T PROTEIN (test code = 7.3 g/dL 6.3-8.2 8063187552) ALBUMIN (test code = 3.9 g/dL 3.5-5.0 4408269402) ALK PHOS (test code = 151 U/L 34-122 H 2198162658) ALTv (test code = 44 U/L 5-35 H 1742-6) AST(SGOT) (test code = 54 U/L 13-40 H 9892058342) eGFR (test code = mL/min/1.73m2 1127584089) JENNIFFER (test code = JENNIFFER) Association of [...] tests). Lab Interpretation Abnormal (test code = 97842-1) [facility] [id number] 10:06:38 Test Item Value Reference Range Interpretation Comments NT-proBNP (test code 3080 pg/mL See_Comment H [Autom ated = 2846565412) message] The system which generated this result transmitted reference range : <=125. The reference range was not used to interpret this result as normal/abnormal . JENNIFFER (test code = JENNIFFER) Biotin has been reported to cause a negative bias, interpret results relative to patient's use of biotin. Lab Interpretation Abnormal (test code = 26599-1) [facility] 09:58:35 Test Item Value Reference Range Interpretation Comments MAGNESIUM (test code = 0977441495) 1.8 mg/dL 1.7-2.4 Lab Interpretation (test code = Normal 25563-4) [facility] WITH [id number] 09:47:53 Test Item Value Reference Range Interpretation [...] (test code = 50.9 fL 39.0-49.9 H 89230-2) RDW-CV (test code = 15.5 % 12.0-15.5 788-0) PLT (test code = See_Comment [Automated 777-3) message] The system which generated this result transmit alden reference range : 166 - 358 10*3/ ?L. The reference range was not u sed to interpret th is result as normal/abnormal . MPV (test code = 9.9 fL 9.5-12.9 79907-7) NRBC/100 WBC (test See_Comment [Automat ed code = 9052775854) message] The system which generated this result transmit alden reference range : 0.0 - 10.0 /100 WBCs. The reference range was not used to interpret this result as normal/abnormal . NRBC x10^3 (test code <0.01 See_Comment [Auto mated = 7777057631) message] The system which generated this result transmit alden reference range : 10*3/?L. The reference range was not used to interpret this result as normal/abnormal . GRAN MAT (NEUT) % 87.2 % (test code = 770-8) IMM GRAN % (test code 0.50 % = 5828486088) LYMPH % (test code = 5.6 % 736-9) MONO % (test code = 5.9 % 5905-5) EOS % (test code = 0.4 % 713-8) BASO % (test code = 0.4 % 706-2) GRAN MAT x10^3(ANC) 10.37 10*3/uL 1.88-7.09 H (test code = 6749472804) IMM GRAN x10^3 (test 0.06 10*3/uL 0.00-0.06 code = 2120882121) LYMPH x10^3 (test code 0.66 10*3/uL 1.32-3.29 L = 731-0) MONO x10^3 (test code 0.70 10*3/uL 0.33-0.92 = 742-7) EOS x10^3 (test code = 0.05 10*3/uL 0.03-0.39 711-2) BASO x10^3 (test code 0.05 10*3/uL 0.01-0.07 = 704-7) Lab Interpretation Abnormal (test code = 17302-9) [facility] GLUCOSE (AUTOMATED)2022-01-29 05:48:29 Test Item Value Reference Range Interpretation Comments POCT GLU (test code = 4326654050) 297 mg/dL 70-110 H Lab Interpretation (test code = Abnormal 78505-7) [facility] GLUCOSE (AUTOMATED)2022-01-29 05:48:29 Test Item Value Reference Range Interpretation Comments POCT GLU (test code = 4724816435) 282 mg/dL 70-110 H Lab Interpretation (test code = Abnormal 21673-0) [facility] GLUCOSE (AUTOMATED)2022-01-28 23:35:33 Test Item Value Reference Range Interpretation Comments POCT GLU (test code = 0650171505) 302 mg/dL 70-110 H Lab Interpretation (test code = Abnormal 49215-6) [facility]12, [id number] 23:17:54 Test Item Value Reference Range Interpretation Comments VIT B12 (test code = 265 pg/mL 240-930 7497660302) JENNIFFER (test code = JENNIFFER) Biotin has been reported to cause a positive bias, interpret results relative to patient's use of biotin. Lab Interpretation (test Normal code = 95548-7) [facility]AL[facility]IN2022-[facility] 20:35:43 Test Item Value Reference Range Interpretation Comments Procalcitonin (test 0.13 ng/mL <0.07 H code = 3852516374) JENNIFFER (test code = JENNIFFER) INTERPRETATION OF [...] lung abscess/empyema. For further information please refer to:[email or web address] Lab Interpretation Abnormal (test code = 78124-9) [facility] D, [id number] 20:34:43 Test Item Value Reference Range Interpretation Comments VIT D 25OH (test code = 23 ng/mL 25-80 L 48692-0) JENNIFFER (test code = JENNIFFER) Deficiency: <20 ng/mLInsufficiency: 20-24 ng/mLOptimal: 25-80 ng/mL Lab Interpretation (test Abnormal code = 91917-7) [facility]TR[facility] [id number] 18:15:31 Test Item Value Reference Interpretation Comments Range TROPONIN I (test 0.003 ng/mL See_Comment [Automated code = 1286796232) message] The system which generated this result transmitted reference range : <=0.034. The reference range was not used to interpret this result as normal/abnormal . JENNIFFER (test code = Reference (Normal) JENNIFFRE) Range (defined by the 99th percentile reference [...] biotin. Lab Interpretation Normal (test code = 27011-1) [facility] [id number] 18:04:12 Test Item Value Reference Range Interpretation Comments URIC ACID (test code = 6696014388) 9.3 mg/dL 2.9-6.0 H Lab Interpretation (test code = Abnormal 63459-7) [facility] HospitalTransthoracic echo (TTE)2022-01-28 17:57:52 Test Item Value Reference Range Interpretation Comments Height (test code = in 8651496396) Weight (test code = lbs 8283854529) Systolic BP (test code = mmHg 6138265368) Diastolic BP (test code = mmHg 4445739222) Heart Rate (test code = bpm 6424688221) Ao root annulus (test 3.1 cm code = 9772600403) Ao root diam (test code = 3.10 cm 2487390353) Aortic root (test code = 3.1 cm 8695244836) LA size (test code = 4.9 cm 3738713601) LVOT diameter (test code 2.10 cm = 6794258426) E wave decelartion time 0.25 s (test code = 8671315121) MV Peak E Marva (test code 83.7 cm/s = 5886619308) MV Peak A Marva (test code 66.0 cm/s = 3560279742) E/A ratio (test code = ratio 8734820624) MV E/e' septal (test code 8.2 cm/s = 0501956448) Tapse (test code = 1.68 cm 7288295064) Aortic valve mean 77.4 cm/s velocity (test code = 7533413953) Ao peak marva (test code = 124.6 cm/s 2676737252) Ao VTI (test code = 20.7 cm 2096135295) Ao max PG (test code = 6.20 mm[Hg] 5353673469) AV peak gradient (test mmHg code = 9165119986) AV mean gradient (test mmHg code = 8423556055) LVOT stroke volume (test 62.00 cm3 code = 6273128459) LVOT peak marva (test code 104.3 cm/s = 0052020222) LVOT mn grad (test code = mmHg 4480333995) AV LVOT peak gradient mmHg (test code = 2559169757) LVOT peak VTI (test code 17.9 cm = 2861962577) AV area by cont VTI (test 3.0 cm2 code = 1258460188) AV area peak marva (test 2.9 cm2 code = 7952665785) LV V1 mean (test code = 63.60 cm/s 2516848110) AV valve area (test code 3.00 cm2 = 9467920121) LVIDD (test code = 5.20 cm 1659935800) IVS (test code = 0.79 cm 3364965916) Interventricular Septum 0.79 cm Diastolic Thickness by 2D (test code = 0309653) LVPWD (test code = 0.66 cm 8022935850) PW (test code = 0.66 cm 0.6-1.8 3742344447) EF(Teich) (test code = 48.60 % 4012022408) LVIDS (test code = 3.90 cm 6807901304) FS (test code = 25 % 2693158364) EF - 2D (test code = 48.60 % 01506338) Radiology Study observation (narrative) (test code = 11323-1) JENNIFFER (test code = JENNIFFER) ?Left?Ventricle: Normal systolic function with a visually estimated EF of 60 - 65%. ?Tricuspid?Valve: Insufficient regurgant jet to estimate RVSP. ?RA pressure is 10-15 mmHg. VitalsHeight Weight BSA (Calculated - sq m) BP Pulse 5' 1" (1.549 m) 230 lb (104.3 kg) 2.12 sq meters 118/[address] [facility] HospitalALBERTO [id number] 14:19:29 Test Item Value Reference Interpretation Comments Range TROPONIN I (test 0.003 ng/mL See_Comment [Automated code = 9177419854) message] The system which generated this result [...] biotin. Lab Interpretation Normal (test code = 63675-8) [facility] [id number] 14:16:29 Test Item Value Reference Range Interpretation Comments NT-proBNP (test code 1170 pg/mL See_Comment H [Autom ated = 5722421741) message] The system which generated this result transmitted reference range : <=125. The reference range was not used to interpret this result as normal/abnormal . JENNIFFER (test code = JENNIFFER) Biotin has been reported to cause a negative bias, interpret results relative to patient's use of biotin. Lab Interpretation Abnormal (test code = 37468-3) [facility] HospitalIRON [id number] 14:14:29 Test Item Value Reference Range Interpretation Comments IRON (test code = 4550678354) 42 ug/dL 50-160 L TIBC (test code = 6221929969) 299 ug/dL 250-410 % FE SAT (test code = 1351166927) 14 % 20-50 L Lab Interpretation (test code = Abnormal 94443-1) [facility] GLUCOSE (AUTOMATED)2022-01-28 14:00:04 Test Item Value Reference Range Interpretation Comments POCT GLU (test code = 9734240200) 197 mg/dL 70-110 H Lab Interpretation (test code = Abnormal 73680-6) [facility] GLUCOSE (AUTOMATED)2022-01-28 13:01:52 Test Item Value Reference Range Interpretation Comments POCT GLU (test code = 5095802805) 211 mg/dL 70-110 H Lab Interpretation (test code = Abnormal 34526-3) [facility] HospitalFERRITIN [id number] 13:00:31 Test Item Value Reference Range Interpretation Comments FERRITIN (test code = 86.8 ng/mL 11.0-264.0 3152957761) JENNIFFER (test code = JENNIFFER) Biotin has been reported to cause a negative bias, interpret results relative to patient's use of biotin. Lab Interpretation (test Normal code = 68639-1) [facility] HospitalTHYROID STIMULATING [id number] 12:56:35 Test Item Value Reference Range Interpretation Comments TSH (test code = See_Comment [Automated message] 2724459438) The system [employer] generated this result transmitted ref erence range: 0.45 - 4 .70 mIU/L. The refe rence range was not u sed to interpret this result as normal/abnor mal. Lab Interpretation (test Normal code = 90129-8) [facility] HospitalSEDIMENTATION [id number] 12:41:55 Test Item Value Reference Range Interpretation Comments ESR (test code = See_Comment H [Automated message] 5467674611) The system [employer] generated this result transmitted ref erence range: 0 - 20 m m/HR. The reference r josselyn was not used to interpret this result as normal/abnor mal. Lab Interpretation (test Abnormal code = 26679-8) [facility]TR[facility] [id number] 12:38:13 Test Item Value Reference Interpretation Comments Range TROPONIN I (test 0.003 ng/mL See_Comment [Automated code = 1546323842) message] The system which generated this result [...] biotin. Lab Interpretation Normal (test code = 41769-9) [facility] [id number] 12:34:52 Test Item Value Reference Range Interpretation Comments NT-proBNP (test code 1150 pg/mL See_Comment H [Autom ated = 4191329604) message] The system which generated this result transmitted reference range : <=125. The reference range was not used to interpret this result as normal/abnormal . JENNIFFER (test code = JENNIFFER) Biotin has been reported to cause a negative bias, interpret results relative to patient's use of biotin. Lab Interpretation Abnormal (test code = 45115-8) [facility] HospitalLIPID PANEL (21541)(TOTAL CHOLESTEROL, TRIGLYCERIDES, HDL)2022-01-28 12:26:13 Test Item Value Reference Range Interpretation Comments CHOL (test code = 122 mg/dL 120-200 1167300767) HDL (test code = 27 mg/dL >50 L 7923899265) HDLC RATIO (test code = See_Comment [Au tomated message] 6757877065) The system [employer] generated this result transmit alden reference range : <=4.5. The refe rence range was not u sed to interpret th is result as normal/abnormal . TRIG (test code = 249 mg/dL 30-170 H 0848716364) LDL CHOL (test code = 45 mg/dL See_Comment [Auto mated message] 96637-4) The system [employer] generated this result transmit alden reference range : <=160. The refe rence range was not u sed to interpret th is result as normal/abnormal . VLDL (test code = 50 mg/dL 5-60 7396743711) Lab Interpretation (test Abnormal code = 87252-8) [facility]20[facility] 12:26:13 Test Item Value Reference Range Interpretation Comments MAGNESIUM (test code = 0297065575) 1.9 mg/dL 1.7-2.4 Lab Interpretation (test code = Normal 29644-3) [facility] METABOLIC PANEL (40471)2022-01-28 12:25:53 Test Item Value Reference Range Interpretation Comments NA (test code = 141 mmol/L 135-145 5762216013) K (test code = 4.9 mmol/L 3.5-5.0 5716587809) CL (test code = 101 mmol/L 98-108 7254073881) CO2 TOTAL (test code = 32 mmol/L 23-31 H 4372957688) AGAP (test code = 2-16 5638036878) BUN (test code = 20 mg/dL 7-23 0377060884) GLUCOSE (test code = 217 mg/dL 70-110 H 2348974892) CREATININE (test code = 1.05 mg/dL 0.50-1.04 H 9608364943) TOTAL BILI (test code = 0.7 mg/dL 0.1-1.0 7009921572) CALCIUM (test code = 8.5 mg/dL 8.6-10.6 L 0734360442) T PROTEIN (test code = 7.2 g/dL 6.3-8.2 3981643847) ALBUMIN (test code = 3.9 g/dL 3.5-5.0 0130651235) ALK PHOS (test code = 161 U/L 34-122 H 4670312116) ALTv (test code = 50 U/L 5-35 H 1742-6) AST(SGOT) (test code = 61 U/L 13-40 H 7596616146) eGFR (test code = mL/min/1.73m2 6899899706) JENNIFFER (test code = JENNIFFER) Association of [...] tests). Lab Interpretation Abnormal (test code = 80968-9) [facility]PHOSPHORUS2022-[facility] 12:25:53 Test Item Value Reference Range Interpretation Comments PHOSPHORUS (test code = 9111577878) 5.3 mg/dL 2.5-5.0 H Lab Interpretation (test code = Abnormal 51809-9) [facility]UR[facility] [id number] 12:25:33 Test Item Value Reference Range Interpretation Comments URIC ACID (test code = 9962952345) 9.5 mg/dL 2.9-6.0 H Lab Interpretation (test code = Abnormal 04084-2) [facility]CREATINE [id number] 12:25:13 Test Item Value Reference Range Interpretation Comments CK (test code = 4277491824) 27 U/L 33-194 L Lab Interpretation (test code = Abnormal 61240-1) [facility] HospitalGLYCOSYLATED HEMOGLOBIN (A1C)2022-01-28 07:50:20 Test Item Value Reference Range Interpretation Comments HGB A1C (test code = 8.9 % 4.0-5.7 H 4548-4) JENNIFFER (test code = JENNIFFER) Reference RangesNormal: <5.7%Prediabetes: 5.7 - 6.4%Diabetes: > 6.5% Lab Interpretation (test Abnormal code = 22914-3) [facility]TR[facility] [id number] 03:04:27 Test Item Value Reference Interpretation Comments Range TROPONIN I (test 0.002 ng/mL See_Comment [Automated code = 0111333645) message] The system which generated this result [...] biotin. Lab Interpretation Normal (test code = 81541-9) [facility] [id number] 03:01:09 Test Item Value Reference Range Interpretation Comments NT-proBNP (test code 358 pg/mL See_Comment H [Autom ated = 1014842968) message] The system which generated this result transmitted reference range : <=125. The reference range was not used to interpret this result as normal/abnormal . JENNIFFER (test code = JENNIFFER) Biotin has been reported to cause a negative bias, interpret results relative to patient's use of biotin. Lab Interpretation Abnormal (test code = 33619-8) [facility]ACTIV[facility] PARTIAL THRMPLAS [id number] 02:54:28 Test Item Value Reference Range Interpretation Comments APTT Patient (test See_Comment [Automat ed code = 3173-2) message] The system which generated this result transmitted reference range : 23 - 38 Seconds . The reference range was not used to interpr et this result as normal/abnormal . JENNIFFER (test code = JENNIFFER) The [facility] patient population mean normal value for aPTT is 30 seconds. Lab Interpretation Normal (test code = 02863-6) [facility] ([id number][facility]22-[facility]-28 02:52:27 Test Item Value Reference Range Interpretation Comments NA (test code = 137 mmol/L 135-145 2676084731) K (test code = 5.0 mmol/L 3.5-5.0 5789393178) CL (test code = 101 mmol/L 98-108 7662141806) CO2 TOTAL (test code = 22 mmol/L 23-31 L 4044566061) AGAP (test code = 2-16 5151388453) BUN (test code = 21 mg/dL 7-23 5156848000) GLUCOSE (test code = 334 mg/dL 70-110 H 7983669402) CREATININE (test code = 1.03 mg/dL 0.50-1.04 7404260207) TOTAL BILI (test code = 0.8 mg/dL 0.1-1.1 2568717961) CALCIUM (test code = 9.0 mg/dL 8.6-10.6 0389143292) T PROTEIN (test code = 7.3 g/dL 6.3-8.2 8163135405) ALBUMIN (test code = 4.2 g/dL 3.5-5.0 3858500265) ALK PHOS (test code = 186 U/L 34-122 H 7333286513) ALTv (test code = 53 U/L 5-35 H 1742-6) AST(SGOT) (test code = 98 U/L 13-40 H 0696136535) eGFR (test code = mL/min/1.73m2 7889908570) JENNIFFER (test code = JENNIFFER) Association of [...] tests). Lab Interpretation Abnormal (test code = 19648-7) [facility] [id number] 02:51:06 Test Item Value Reference Range Interpretation [...] tions. Lab Interpretation (test Normal code = 41736-0) [facility] [id number] 02:43:03 Test Item Value Reference Range Interpretation [...] RDW-SD (test code = 49.4 fL 39.0-49.9 94918-7) RDW-CV (test code = 15.6 % 12.0-15.5 H 788-0) PLT (test code = See_Comment [Automated 777-3) message] The sy stem which generated this result transmitted reference range : 166 - 358 10*3/ ?L. The reference r josselyn was not used to interpret this result as normal/abnormal . MPV (test code = 9.7 fL 9.5-12.9 86365-7) NRBC/100 WBC (test See_Comment [Automat ed code = 7051450538) message] The system which generated this result transmitted reference range : 0.0 - 10.0 /100 WBCs. The refer ence range was not u sed to interpret th is result as normal/abnormal . NRBC x10^3 (test code <0.01 See_Comment [Auto mated = 7309009137) message] The s ystem which generated this result transmitted reference range : 10*3/?L. The reference range was not used to interpret this result as normal/abnormal . GRAN MAT (NEUT) % 88.0 % (test code = 770-8) IMM GRAN % (test code 0.60 % = 0347041932) LYMPH % (test code = 5.4 % 736-9) MONO % (test code = 4.5 % 5905-5) EOS % (test code = 0.9 % 713-8) BASO % (test code = 0.6 % 706-2) GRAN MAT x10^3(ANC) 9.50 10*3/uL 1.88-7.09 H (test code = 7200947031) IMM GRAN x10^3 (test 0.06 10*3/uL 0.00-0.06 code = 4788701002) LYMPH x10^3 (test code 0.58 10*3/uL 1.32-3.29 L = 731-0) MONO x10^3 (test code 0.49 10*3/uL 0.33-0.92 = 742-7) EOS x10^3 (test code = 0.10 10*3/uL 0.03-0.39 711-2) BASO x10^3 (test code 0.06 10*3/uL 0.01-0.07 = 704-7) Lab Interpretation Abnormal (test code = 52795-5) [facility]. METABOLIC PANEL ([id number])2022-01-12 23:54:59 Test Item Value Reference Range Interpretation Comments NA (test code = 143 mmol/L 135-145 1385969229) K (test code = 4.1 mmol/L 3.5-5.0 2117280496) CL (test code = 103 mmol/L 98-108 0115655774) CO2 TOTAL (test code = 27 mmol/L 23-31 0321673647) AGAP (test code = 2-16 0464074853) BUN (test code = 12 mg/dL 7-23 5390561018) GLUCOSE (test code = 278 mg/dL 70-110 H 5585508579) CREATININE (test code = 0.61 mg/dL 0.50-1.04 0555144982) TOTAL BILI (test code = 0.6 mg/dL 0.1-1.3 3411733252) CALCIUM (test code = 9.6 mg/dL 8.6-10.6 6721768312) T PROTEIN (test code = 7.6 g/dL 6.3-8.2 1686521277) ALBUMIN (test code = 4.3 g/dL 3.5-5.0 2691131230) ALK PHOS (test code = 130 U/L 34-122 H 6620938621) ALTv (test code = 29 U/L 5-35 1742-6) AST(SGOT) (test code = 39 U/L 13-40 6710243117) eGFR (test code = mL/min/1.73m2 9482919381) JENNIFFER (test code = JENNIFFER) Association of [...] tests). Lab Interpretation Abnormal (test code = 60450-4) [facility] WITH [id number] 23:43:55 Test Item Value Reference Range Interpretation [...] (test code = 47.8 fL 39.0-49.9 Previous 11912-1) preliminary verified result was 48.1 fL on [...] (test code = 10.0 fL 9.5-12.9 Previous 70796-5) preliminary verified result was 9.9 fL on 2021 at 1842 CDT IPF % (test code = 3.9 % 1.3-7.7 Platelet count 0882609929) measured by fluorescence method. NRBC/100 WBC (test See_Comment [Automat ed code = 1794076341) message] The system which generated this result transmitted reference range : 0.0 - 10.0 /100 WBCs. The refer ence range was not u sed to interpret th is result as normal/abnormal . NRBC x10^3 (test code <0.01 See_Comment [Auto mated = 0958930630) message] The s ystem which generated this result transmitted reference range : 10*3/?L. The reference range was not used to interpret this result as normal/abnormal . GRAN MAT (NEUT) % 85.9 % (test code = 770-8) IMM GRAN % (test code 0.90 % = 4046505696) LYMPH % (test code = 4.7 % 736-9) MONO % (test code = 5.3 % 5905-5) EOS % (test code = 2.6 % 713-8) BASO % (test code = 0.6 % 706-2) GRAN MAT x10^3(ANC) 6.93 10*3/uL 1.88-7.09 (test code = 1584547506) IMM GRAN x10^3 (test 0.07 10*3/uL 0.00-0.06 H code = 3546305714) LYMPH x10^3 (test code 0.38 10*3/uL 1.32-3.29 L = 731-0) MONO x10^3 (test code 0.43 10*3/uL 0.33-0.92 = 742-7) EOS x10^3 (test code = 0.21 10*3/uL 0.03-0.39 711-2) BASO x10^3 (test code 0.05 10*3/uL 0.01-0.07 = 704-7) Lab Interpretation Abnormal (test code = 53863-6) [facility] LACTIC [id number] 23:29:12 Test Item Value Reference Range Interpretation Comments PH (test code = 7.32-7.42 L 8699026251) PCO2 CELIA (test code = See_Comment H [Auto mated 6640549623) message] The sy stem which generated this result transmitted reference range : 41 - 51 mmHg. The reference range was not used to interpret this result as normal/abnormal . PO2 CELIA (test code = See_Comment HH [Autom ated 1443080431) message] The sy stem which generated this result transmitted reference range : 25 - 40 mmHg. The reference range was not used to interpret this result as normal/abnormal . HCO3 CELIA (test code = See_Comment H [Auto mated 8498004280) message] The sy stem which generated this result transmitted reference range : 24 - 28 mEq/L. The reference range was not used to interpret this result as normal/abnormal . AC VBE(BEAKER) (test mEq/L code = 9352636285) THB CELIA (test code = 12.1 g/dL 12.0-16.0 4235109377) %O2HB CELIA (test code = 90.8 % 52.0-63.0 H 7012529124) %COHB CELIA (test code = 0.0 % 0.0-1.5 6617051552) %METHB CELIA (test code = 0.0 % 0.4-1.5 L 5734039989) VOL%O2 CELIA (test code = 15.5 % 6.0-12.0 H 5319777875) NA (test code = 145 mmol/L 135-145 0277290348) K+ (test code = 4.1 mmol/L 3.5-5.0 9267375705) AC CA IONZ (test code = 5.30 mg/dL 4.50-5.30 3712637029) GLUCOSE (test code = 291 mg/dL 70-110 H 1958081601) LACTIC ACID (test code 1.04 mmol/L 0.50-2.20 = 1640055632) Lab Interpretation Abnormal (test code = 38704-9) [facility] GLUCOSE (AUTOMATED)2022-01-12 17:49:50 Test Item Value Reference Range Interpretation Comments POCT GLU (test code = 6288531413) 120 mg/dL 70-110 H Lab Interpretation (test code = Abnormal 22507-3) [facility] GLUCOSE (AUTOMATED)2022-01-12 13:25:37 Test Item Value Reference Range Interpretation Comments POCT GLU (test code = 2115269764) 76 mg/dL 70-110 Lab Interpretation (test code = Normal 69718-3) [facility] GLUCOSE (AUTOMATED)2022-01-12 05:53:23 Test Item Value Reference Range Interpretation Comments POCT GLU (test code = 6454136756) 107 mg/dL 70-110 Lab Interpretation (test code = Normal 85852-8) [facility] GLUCOSE (AUTOMATED)2022-01-11 23:03:13 Test Item Value Reference Range Interpretation Comments POCT GLU (test code = 6396986426) 142 mg/dL 70-110 H Lab Interpretation (test code = Abnormal 00352-7) [facility] GLUCOSE (AUTOMATED)2022-01-11 17:22:09 Test Item Value Reference Range Interpretation Comments POCT GLU (test code = 9414890389) 106 mg/dL 70-110 Lab Interpretation (test code = Normal 73122-3) [facility] GLUCOSE (AUTOMATED)2022-01-11 13:11:20 Test Item Value Reference Range Interpretation Comments POCT GLU (test code = 6589816714) 91 mg/dL 70-110 Lab Interpretation (test code = Normal 70358-1) [facility] METABOLIC PANEL (NA, K, CL, CO2, GLUCOSE, BUN, CREATININE, CA)2022-01-11 11:52:16 Test Item Value Reference Range Interpretation Comments NA (test code = 141 mmol/L 135-145 3865183176) K (test code = 3.7 mmol/L 3.5-5.0 4926864400) CL (test code = 100 mmol/L 98-108 2207913974) CO2 TOTAL (test code 30 mmol/L 23-31 = 7434912553) AGAP (test code = 2-16 3143340435) BUN (test code = 14 mg/dL 7-23 6783148147) GLUCOSE (test code = 85 mg/dL 70-110 5774049603) CREATININE (test code 0.62 mg/dL 0.50-1.04 = 0229035674) CALCIUM (test code = 8.9 mg/dL 8.6-10.6 9768595749) eGFR (test code = mL/min/1.73m2 0805540367) JENNIFFER (test code = JENNIFFER) Association of [...] or urine or abnormalities in imaging tests). [facility]16 Test Item Value Reference Range Interpretation Comments MAGNESIUM (test code = 9764824525) 1.9 mg/dL 1.7-2.4 Lab Interpretation (test code = Normal 15638-5) [facility]11 11:36:18 Test Item Value Reference Range Interpretation Comments POCT GLU (test code = 2997205506) 95 mg/dL 70-110 Lab Interpretation (test code = Normal 77473-6) [facility] [id number] 10:51:12 Test Item Value Reference Range Interpretation [...] RDW-SD (test code = 46.5 fL 39.0-49.9 87675-4) RDW-CV (test code = 14.3 % 12.0-15.5 788-0) PLT (test code = See_Comment [Automated 777-3) message] The sy stem which generated this result transmitted reference range : 166 - 358 10*3/ ?L. The reference r josselyn was not used to interpret this result as normal/abnormal . MPV (test code = 8.5 fL 9.5-12.9 L 27155-3) NRBC/100 WBC (test See_Comment [Automat ed code = 4077681356) message] The system which generated this result transmitted reference range : 0.0 - 10.0 /100 WBCs. The refer ence range was not u sed to interpret th is result as normal/abnormal . NRBC x10^3 (test code <0.01 See_Comment [Auto mated = 1647626341) message] The s ystem which generated this result transmitted reference range : 10*3/?L. The reference range was not used to interpret this result as normal/abnormal . GRAN MAT (NEUT) % 72.4 % (test code = 770-8) IMM GRAN % (test code 0.60 % = 0764299149) LYMPH % (test code = 12.0 % 736-9) MONO % (test code = 9.8 % 5905-5) EOS % (test code = 4.4 % 713-8) BASO % (test code = 0.8 % 706-2) GRAN MAT x10^3(ANC) 4.64 10*3/uL 1.88-7.09 (test code = 1993056305) IMM GRAN x10^3 (test 0.04 10*3/uL 0.00-0.06 code = 5819929913) LYMPH x10^3 (test code 0.77 10*3/uL 1.32-3.29 L = 731-0) MONO x10^3 (test code 0.63 10*3/uL 0.33-0.92 = 742-7) EOS x10^3 (test code = 0.28 10*3/uL 0.03-0.39 711-2) BASO x10^3 (test code 0.05 10*3/uL 0.01-0.07 = 704-7) Lab Interpretation Abnormal (test code = 37646-7) [facility] GLUCOSE (AUTOMATED)2022-01-11 04:16:05 Test Item Value Reference Range Interpretation Comments POCT GLU (test code = 2676425725) 100 mg/dL 70-110 Lab Interpretation (test code = Normal 75712-3) [facility] GLUCOSE (AUTOMATED)2022-01-10 22:37:14 Test Item Value Reference Range Interpretation Comments POCT GLU (test code = 3423338009) 109 mg/dL 70-110 Lab Interpretation (test code = Normal 21070-3) [facility] GLUCOSE (AUTOMATED)2022-01-10 16:49:31 Test Item Value Reference Range Interpretation Comments POCT GLU (test code = 1468624980) 151 mg/dL 70-110 H Lab Interpretation (test code = Abnormal 78209-3) [facility] GLUCOSE (AUTOMATED)2022-01-10 13:04:04 Test Item Value Reference Range Interpretation Comments POCT GLU (test code = 6534633292) 133 mg/dL 70-110 H Lab Interpretation (test code = Abnormal 76220-5) [facility] GLUCOSE (AUTOMATED)2022-01-10 10:48:27 Test Item Value Reference Range Interpretation Comments POCT GLU (test code = 1569870982) 140 mg/dL 70-110 H Lab Interpretation (test code = Abnormal 23300-3) [facility] METABOLIC PANEL (NA, K, CL, CO2, GLUCOSE, BUN, CREATININE, CA)2022-01-10 07:43:41 Test Item Value Reference Range Interpretation Comments NA (test code = 139 mmol/L 135-145 5872474773) K (test code = 4.1 mmol/L 3.5-5.0 8043540190) CL (test code = 100 mmol/L 98-108 0817967901) CO2 TOTAL (test code = 32 mmol/L 23-31 H 6992908058) AGAP (test code = 2-16 2127840620) BUN (test code = 18 mg/dL 7-23 2040376621) GLUCOSE (test code = 146 mg/dL 70-110 H 5310072482) CREATININE (test code = 0.79 mg/dL 0.50-1.04 9533936661) CALCIUM (test code = 8.7 mg/dL 8.6-10.6 3272017008) eGFR (test code = mL/min/1.73m2 5590670087) JENNIFFER (test code = JENNIFFER) Association of [...] tests). Lab Interpretation Abnormal (test code = 58368-2) [facility] 07:43:41 Test Item Value Reference Range Interpretation Comments MAGNESIUM (test code = 4484229012) 2.1 mg/dL 1.7-2.4 Lab Interpretation (test code = Normal 41685-8) [facility] WITH [id number] 07:29:01 Test Item Value Reference Range Interpretation [...] RDW-SD (test code = 47.2 fL 39.0-49.9 99581-0) RDW-CV (test code = 14.1 % 12.0-15.5 788-0) PLT (test code = See_Comment [Automated 777-3) message] The sy stem which generated this result transmitted reference range : 166 - 358 10*3/ ?L. The reference r josselyn was not used to interpret this result as normal/abnormal . MPV (test code = 8.3 fL 9.5-12.9 L 59622-1) NRBC/100 WBC (test See_Comment [Automat ed code = 6469652600) message] The system which generated this result transmitted reference range : 0.0 - 10.0 /100 WBCs. The refer ence range was not u sed to interpret th is result as normal/abnormal . NRBC x10^3 (test code <0.01 See_Comment [Auto mated = 3301941832) message] The s ystem which generated this result transmitted reference range : 10*3/?L. The reference range was not used to interpret this result as normal/abnormal . GRAN MAT (NEUT) % 75.5 % (test code = 770-8) IMM GRAN % (test code 0.50 % = 7294508725) LYMPH % (test code = 13.6 % 736-9) MONO % (test code = 5.4 % 5905-5) EOS % (test code = 4.4 % 713-8) BASO % (test code = 0.6 % 706-2) GRAN MAT x10^3(ANC) 5.01 10*3/uL 1.88-7.09 (test code = 5180695341) IMM GRAN x10^3 (test 0.03 10*3/uL 0.00-0.06 code = 0003835614) LYMPH x10^3 (test code 0.90 10*3/uL 1.32-3.29 L = 731-0) MONO x10^3 (test code 0.36 10*3/uL 0.33-0.92 = 742-7) EOS x10^3 (test code = 0.29 10*3/uL 0.03-0.39 711-2) BASO x10^3 (test code 0.04 10*3/uL 0.01-0.07 = 704-7) Lab Interpretation Abnormal (test code = 20335-7) [facility] GLUCOSE (AUTOMATED)2022-01-10 04:49:48 Test Item Value Reference Range Interpretation Comments POCT GLU (test code = 2518286824) 150 mg/dL 70-110 H Lab Interpretation (test code = Abnormal 00242-3) [facility] GLUCOSE (AUTOMATED)2022-01-09 17:24:10 Test Item Value Reference Range Interpretation Comments POCT GLU (test code = 1511284237) 114 mg/dL 70-110 H Lab Interpretation (test code = Abnormal 45647-6) [facility] GLUCOSE (AUTOMATED)2022-01-09 12:48:19 Test Item Value Reference Range Interpretation Comments POCT GLU (test code = 7840989473) 107 mg/dL 70-110 Lab Interpretation (test code = Normal 84681-3) [facility] METABOLIC PANEL (NA, K, CL, CO2, GLUCOSE, BUN, CREATININE, CA)2022-01-09 11:11:00 Test Item Value Reference Range Interpretation Comments NA (test code = 141 mmol/L 135-145 4368082091) K (test code = 3.7 mmol/L 3.5-5.0 1673861465) CL (test code = 100 mmol/L 98-108 7340761071) CO2 TOTAL (test code = 32 mmol/L 23-31 H 9459136810) AGAP (test code = 2-16 3423391883) BUN (test code = 19 mg/dL 7-23 1392125799) GLUCOSE (test code = 115 mg/dL 70-110 H 1517660089) CREATININE (test code = 0.81 mg/dL 0.50-1.04 1729432816) CALCIUM (test code = 8.6 mg/dL 8.6-10.6 1665423432) eGFR (test code = mL/min/1.73m2 8018159103) JENNIFFER (test code = JENNIFFER) Association of [...] tests). Lab Interpretation Abnormal (test code = 77538-2) [facility] WITH [id number] 10:57:57 Test Item Value Reference Range Interpretation [...] RDW-SD (test code = 49.1 fL 39.0-49.9 82939-4) RDW-CV (test code = 14.6 % 12.0-15.5 788-0) PLT (test code = See_Comment [Automated 777-3) message] The sy stem which generated this result transmitted reference range : 166 - 358 10*3/ ?L. The reference r josselyn was not used to interpret this result as normal/abnormal . MPV (test code = 8.6 fL 9.5-12.9 L 63674-6) NRBC/100 WBC (test See_Comment [Automat ed code = 2661713384) message] The system which generated this result transmitted reference range : 0.0 - 10.0 /100 WBCs. The refer ence range was not u sed to interpret th is result as normal/abnormal . NRBC x10^3 (test code <0.01 See_Comment [Auto mated = 6657927473) message] The s ystem which generated this result transmitted reference range : 10*3/?L. The reference range was not used to interpret this result as normal/abnormal . GRAN MAT (NEUT) % 79.2 % (test code = 770-8) IMM GRAN % (test code 0.40 % = 0543590925) LYMPH % (test code = 10.7 % 736-9) MONO % (test code = 5.4 % 5905-5) EOS % (test code = 3.5 % 713-8) BASO % (test code = 0.8 % 706-2) GRAN MAT x10^3(ANC) 6.15 10*3/uL 1.88-7.09 (test code = 1221988384) IMM GRAN x10^3 (test 0.03 10*3/uL 0.00-0.06 code = 2168062834) LYMPH x10^3 (test code 0.83 10*3/uL 1.32-3.29 L = 731-0) MONO x10^3 (test code 0.42 10*3/uL 0.33-0.92 = 742-7) EOS x10^3 (test code = 0.27 10*3/uL 0.03-0.39 711-2) BASO x10^3 (test code 0.06 10*3/uL 0.01-0.07 = 704-7) Lab Interpretation Abnormal (test code = 89264-7) [facility] GLUCOSE (AUTOMATED)2022-01-09 10:44:16 Test Item Value Reference Range Interpretation Comments POCT GLU (test code = 4538564257) 116 mg/dL 70-110 H Lab Interpretation (test code = Abnormal 60279-6) [facility] GLUCOSE (AUTOMATED)2022-01-09 04:22:02 Test Item Value Reference Range Interpretation Comments POCT GLU (test code = 9171669233) 124 mg/dL 70-110 H Lab Interpretation (test code = Abnormal 16554-8) [facility] GLUCOSE (AUTOMATED)2022-01-08 23:21:27 Test Item Value Reference Range Interpretation Comments POCT GLU (test code = 3460205780) 122 mg/dL 70-110 H Lab Interpretation (test code = Abnormal 79394-7) [facility] GLUCOSE (AUTOMATED)2022-01-08 18:15:20 Test Item Value Reference Range Interpretation Comments POCT GLU (test code = 1959650681) 104 mg/dL 70-110 Lab Interpretation (test code = Normal 27658-6) [facility] GLUCOSE (AUTOMATED)2022-01-08 13:35:04 Test Item Value Reference Range Interpretation Comments POCT GLU (test code = 7028401432) 132 mg/dL 70-110 H Lab Interpretation (test code = Abnormal 57474-3) [facility] METABOLIC PANEL (NA, K, CL, CO2, GLUCOSE, BUN, CREATININE, CA)2022-01-08 11:08:57 Test Item Value Reference Range Interpretation Comments NA (test code = 142 mmol/L 135-145 0059404823) K (test code = 3.5 mmol/L 3.5-5.0 5640983604) CL (test code = 99 mmol/L 98-108 2726834691) CO2 TOTAL (test code = 34 mmol/L 23-31 H 7231502995) AGAP (test code = 2-16 0369951960) BUN (test code = 16 mg/dL 7-23 1724487237) GLUCOSE (test code = 131 mg/dL 70-110 H 4529838743) CREATININE (test code = 0.83 mg/dL 0.50-1.04 9741967108) CALCIUM (test code = 8.5 mg/dL 8.6-10.6 L 4434881759) eGFR (test code = mL/min/1.73m2 3858067060) JENNIFFER (test code = JENNIFFER) Association of [...] tests). Lab Interpretation Abnormal (test code = 38698-8) [facility] WITH [id number] 10:58:37 Test Item Value Reference Range Interpretation [...] RDW-SD (test code = 48.8 fL 39.0-49.9 41039-9) RDW-CV (test code = 14.7 % 12.0-15.5 788-0) PLT (test code = See_Comment [Automated 777-3) message] The sy stem which generated this result transmitted reference range : 166 - 358 10*3/ ?L. The reference r josselyn was not used to interpret this result as normal/abnormal . MPV (test code = 8.5 fL 9.5-12.9 L 90567-9) NRBC/100 WBC (test See_Comment [Automat ed code = 7503160093) message] The system which generated this result transmitted reference range : 0.0 - 10.0 /100 WBCs. The refer ence range was not u sed to interpret th is result as normal/abnormal . NRBC x10^3 (test code <0.01 See_Comment [Auto mated = 4722824857) message] The s ystem which generated this result transmitted reference range : 10*3/?L. The reference range was not used to interpret this result as normal/abnormal . GRAN MAT (NEUT) % 75.9 % (test code = 770-8) IMM GRAN % (test code 0.30 % = 4130796227) LYMPH % (test code = 12.3 % 736-9) MONO % (test code = 7.0 % 5905-5) EOS % (test code = 3.6 % 713-8) BASO % (test code = 0.9 % 706-2) GRAN MAT x10^3(ANC) 4.89 10*3/uL 1.88-7.09 (test code = 3955999447) IMM GRAN x10^3 (test <0.03 0.00-0.06 code = 2017160873) LYMPH x10^3 (test code 0.79 10*3/uL 1.32-3.29 L = 731-0) MONO x10^3 (test code 0.45 10*3/uL 0.33-0.92 = 742-7) EOS x10^3 (test code = 0.23 10*3/uL 0.03-0.39 711-2) BASO x10^3 (test code 0.06 10*3/uL 0.01-0.07 = 704-7) Lab Interpretation Abnormal (test code = 15104-9) [facility] GLUCOSE (AUTOMATED)2022-01-08 10:57:56 Test Item Value Reference Range Interpretation Comments POCT GLU (test code = 7096005740) 122 mg/dL 70-110 H Lab Interpretation (test code = Abnormal 08919-9) [facility] GLUCOSE (AUTOMATED)2022-01-08 05:44:22 Test Item Value Reference Range Interpretation Comments POCT GLU (test code = 8838254938) 150 mg/dL 70-110 H Lab Interpretation (test code = Abnormal 62758-9) [facility] GLUCOSE (AUTOMATED)2022-01-07 22:00:04 Test Item Value Reference Range Interpretation Comments POCT GLU (test code = 7320313246) 175 mg/dL 70-110 H Lab Interpretation (test code = Abnormal 09416-7) [facility] GLUCOSE (AUTOMATED)2022-01-07 17:25:35 Test Item Value Reference Range Interpretation Comments POCT GLU (test code = 5952470212) 149 mg/dL 70-110 H Lab Interpretation (test code = Abnormal 58513-6) [facility] Culture - Peripheral [id number] 15:01:23 Test Item Value Reference Range Interpretation Comments Blood Culture-Aerobic No organisms No growth Previo us (test code = 26494-5) isolated prelim inary verified result was Culture [...] Culture-Anaerobic isolated preliminar y (test code = 24036-0) verifi ed result was Culture In Progress [...] CDT Lab Interpretation Normal (test code = 40780-5) [facility] Culture - Peripheral Vein # 15:01:23 Test Item Value Reference Range Interpretation Comments Blood Culture-Aerobic No organisms No growth Previo us (test code = 49846-3) isolated prelim inary verified result was Culture [...] Culture-Anaerobic isolated preliminar y (test code = 75309-8) verifi ed result was Culture In Progress [...] CDT Lab Interpretation Normal (test code = 87173-3) [facility] 13:20:20 Test Item Value Reference Range Interpretation Comments POCT GLU (test code = 8602958789) 153 mg/dL 70-110 H Lab Interpretation (test code = Abnormal 75687-7) [facility] (NA, K, CL, CO2, GLUCOSE, BUN, CREATININE, CA)2022-01-07 07:43:22 Test Item Value Reference Range Interpretation Comments NA (test code = 141 mmol/L 135-145 [id number]) K (test code = 3.8 mmol/L 3.5-5.0 3148103721) CL (test code = 101 mmol/L 98-108 6926942678) CO2 TOTAL (test code = 33 mmol/L 23-31 H 3413408899) AGAP (test code = 2-16 7630699661) BUN (test code = 13 mg/dL 7-23 2937461144) GLUCOSE (test code = 127 mg/dL 70-110 H 4692713332) CREATININE (test code = 0.89 mg/dL 0.50-1.04 1770756308) CALCIUM (test code = 8.4 mg/dL 8.6-10.6 L 1091436621) eGFR (test code = mL/min/1.73m2 1474311779) JENNIFFER (test code = JENNIFFER) Association of [...] tests). Lab Interpretation Abnormal (test code = 91381-0) [facility] with [id number] 07:29:22 Test Item Value Reference Range Interpretation Comments WBC (test code = See_Comment [Automated 8430-2) message] The sy stem which generated this result transmitted reference range : 4.30 - 11.10 10*3/?L. The reference range was not used to interpret this result as normal/abnormal . RBC (test code = See_Comment L [Automated 755-8) message] The sy stem which generated this [...] RDW-SD (test code = 48.2 fL 39.0-49.9 29257-4) RDW-CV (test code = 14.7 % 12.0-15.5 788-0) PLT (test code = See_Comment [Automated 777-3) message] The sy stem which generated this result transmitted reference range : 166 - 358 10*3/ ?L. The reference r josselyn was not used to interpret this result as normal/abnormal . MPV (test code = 9.0 fL 9.5-12.9 L 23606-4) NRBC/100 WBC (test See_Comment [Automat ed code = 5682172735) message] The system which generated this result transmitted reference range : 0.0 - 10.0 /100 WBCs. The refer ence range was not u sed to interpret th is result as normal/abnormal . NRBC x10^3 (test code <0.01 See_Comment [Auto mated = 2105002207) message] The s ystem which generated this result transmitted reference range : 10*3/?L. The reference range was not used to interpret this result as normal/abnormal . GRAN MAT (NEUT) % 81.4 % (test code = 770-8) IMM GRAN % (test code 0.30 % = 1680850453) LYMPH % (test code = 10.3 % 736-9) MONO % (test code = 4.6 % 5905-5) EOS % (test code = 2.8 % 713-8) BASO % (test code = 0.6 % 706-2) GRAN MAT x10^3(ANC) 6.39 10*3/uL 1.88-7.09 (test code = 0295596881) IMM GRAN x10^3 (test <0.03 0.00-0.06 code = 7762804737) LYMPH x10^3 (test code 0.81 10*3/uL 1.32-3.29 L = 731-0) MONO x10^3 (test code 0.36 10*3/uL 0.33-0.92 = 742-7) EOS x10^3 (test code = 0.22 10*3/uL 0.03-0.39 711-2) BASO x10^3 (test code 0.05 10*3/uL 0.01-0.07 = 704-7) Lab Interpretation Abnormal (test code = 85159-1) [facility]55 Test Item Value Reference Range Interpretation Comments POCT GLU (test code = 9308830570) 125 mg/dL 70-110 H Lab Interpretation (test code = Abnormal 10614-7) [facility] CULTURE [id number] 04:01:23 Test Item Value Reference Range Interpretation Comments Blood Culture-Aerobic No organisms No growth Previo us (test code = 02732-7) isolated prelim inary verified result was Culture [...] Culture-Anaerobic isolated preliminar y (test code = 53904-8) verifi ed result was Culture In Progress [...] accordingly. Lab Interpretation Normal (test code = 18049-2) [facility] CULTURE [id number] 03:01:22 Test Item Value Reference Range Interpretation Comments Blood Culture-Aerobic No organisms No growth Previo us (test code = 26351-9) isolated prelim inary verified result was Culture [...] Culture-Anaerobic isolated preliminar y (test code = 23789-5) verifi ed result was Culture In Progress [...] accordingly. Lab Interpretation Normal (test code = 29103-9) [facility] GLUCOSE (AUTOMATED)2022-01-06 23:38:26 Test Item Value Reference Range Interpretation Comments POCT GLU (test code = 6226038314) 181 mg/dL 70-110 H Lab Interpretation (test code = Abnormal 10906-6) [facility] GLUCOSE (AUTOMATED)2022-01-06 22:44:50 Test Item Value Reference Range Interpretation Comments POCT GLU (test code = 7837434251) 198 mg/dL 70-110 H Lab Interpretation (test code = Abnormal 80184-4) [facility] GLUCOSE (AUTOMATED)2022-01-06 17:41:24 Test Item Value Reference Range Interpretation Comments POCT GLU (test code = 5380483192) 172 mg/dL 70-110 H Lab Interpretation (test code = Abnormal 41363-4) [facility] GLUCOSE (AUTOMATED)2022-01-06 13:48:08 Test Item Value Reference Range Interpretation Comments POCT GLU (test code = 3215280478) 175 mg/dL 70-110 H Lab Interpretation (test code = Abnormal 29543-9) [facility] (NA, K, CL, CO2, GLUCOSE, BUN, CREATININE, CA)2022-01-06 09:39:37 Test Item Value Reference Range Interpretation Comments NA (test code = 139 mmol/L 135-145 2991110032) K (test code = 3.6 mmol/L 3.5-5.0 5438114781) CL (test code = 104 mmol/L 98-108 0279426823) CO2 TOTAL (test code = 30 mmol/L 23-31 8069721085) AGAP (test code = 2-16 0398353330) BUN (test code = 15 mg/dL 7-23 9753000096) GLUCOSE (test code = 164 mg/dL 70-110 H 7879340772) CREATININE (test code = 0.83 mg/dL 0.50-1.04 8710815236) CALCIUM (test code = 7.9 mg/dL 8.6-10.6 L 6343262123) eGFR (test code = mL/min/1.73m2 9010574592) JENNIFFER (test code = JENNIFFER) Association of [...] tests). Lab Interpretation Abnormal (test code = 37217-1) [facility] 09:[facility]:37 Test Item Value Reference Range Interpretation Comments MAGNESIUM (test code = 2448553805) 2.5 mg/dL 1.7-2.4 H Lab Interpretation (test code = Abnormal 08760-5) [facility] 09:39:37 Test Item Value Reference Range Interpretation Comments PHOSPHORUS (test code = 8854691066) 3.8 mg/dL 2.5-5.0 Lab Interpretation (test code = Normal 29889-6) [facility] [id number] 09:29:28 Test Item Value Reference Range Interpretation Comments WBC (test code = See_Comment [Automated 6690-2) message] The sy stem which generated this result transmitted reference range : 4.30 - 11.10 10*3/?L. The reference range was not used to interpret this result as normal/abnormal . RBC (test code = See_Comment L [Automated 729-8) message] The sy stem which generated this [...] RDW-SD (test code = 46.7 fL 39.0-49.9 91360-4) RDW-CV (test code = 14.5 % 12.0-15.5 788-0) PLT (test code = See_Comment [Automated 777-3) message] The sy stem which generated this result transmitted reference range : 166 - 358 10*3/ ?L. The reference r josselyn was not used to interpret this result as normal/abnormal . MPV (test code = 8.9 fL 9.5-12.9 L 07562-5) NRBC/100 WBC (test See_Comment [Automat ed code = 7985432109) message] The system which generated this result transmitted reference range : 0.0 - 10.0 /100 WBCs. The refer ence range was not u sed to interpret th is result as normal/abnormal . NRBC x10^3 (test code <0.01 See_Comment [Auto mated = 6458226713) message] The s ystem which generated this result transmitted reference range : 10*3/?L. The reference range was not used to interpret this result as normal/abnormal . GRAN MAT (NEUT) % 74.7 % (test code = 770-8) IMM GRAN % (test code 0.30 % = 7229112068) LYMPH % (test code = 15.5 % 736-9) MONO % (test code = 5.5 % 5905-5) EOS % (test code = 3.3 % 713-8) BASO % (test code = 0.7 % 706-2) GRAN MAT x10^3(ANC) 4.34 10*3/uL 1.88-7.09 (test code = 9034735477) IMM GRAN x10^3 (test <0.03 0.00-0.06 code = 4746014295) LYMPH x10^3 (test code 0.90 10*3/uL 1.32-3.29 L = 731-0) MONO x10^3 (test code 0.32 10*3/uL 0.33-0.92 L = 742-7) EOS x10^3 (test code = 0.19 10*3/uL 0.03-0.39 711-2) BASO x10^3 (test code 0.04 10*3/uL 0.01-0.07 = 704-7) Lab Interpretation Abnormal (test code = 03070-6) [facility] GLUCOSE (AUTOMATED)2022-01-05 20:46:31 Test Item Value Reference Range Interpretation Comments POCT GLU (test code = 3740441283) 175 mg/dL 70-110 H Lab Interpretation (test code = Abnormal 18546-6) [facility] GLUCOSE (AUTOMATED)2022-01-05 17:13:26 Test Item Value Reference Range Interpretation Comments POCT GLU (test code = 0722042315) 233 mg/dL 70-110 H Lab Interpretation (test code = Abnormal 79590-3) [facility] GLUCOSE (AUTOMATED)2022-01-05 13:24:19 Test Item Value Reference Range Interpretation Comments POCT GLU (test code = 9896481916) 208 mg/dL 70-110 H Lab Interpretation (test code = Abnormal 96585-7) [facility] METABOLIC PANEL (NA, K, CL, CO2, GLUCOSE, BUN, CREATININE, CA)2022-01-05 09:23:42 Test Item Value Reference Range Interpretation Comments NA (test code = 139 mmol/L 135-145 0683733762) K (test code = 3.7 mmol/L 3.5-5.0 3869432352) CL (test code = 102 mmol/L 98-108 9330687861) CO2 TOTAL (test code = 31 mmol/L 23-31 8133335522) AGAP (test code = 2-16 3894604358) BUN (test code = 19 mg/dL 7-23 4794571102) GLUCOSE (test code = 166 mg/dL 70-110 H 3502706489) CREATININE (test code = 0.85 mg/dL 0.50-1.04 7831806570) CALCIUM (test code = 8.1 mg/dL 8.6-10.6 L 7342289571) eGFR (test code = mL/min/1.73m2 8367140552) JENNIFFER (test code = JENNIFFER) Association of [...] tests). Lab Interpretation Abnormal (test code = 34285-4) [facility] 09:23:42 Test Item Value Reference Range Interpretation Comments MAGNESIUM (test code = 1606112016) 2.3 mg/dL 1.7-2.4 Lab Interpretation (test code = Normal 69326-6) [facility] 09:23:42 Test Item Value Reference Range Interpretation Comments PHOSPHORUS (test code = 9411469652) 3.5 mg/dL 2.5-5.0 Lab Interpretation (test code = Normal 73772-2) [facility] [id number] 09:15:04 Test Item Value Reference Range Interpretation Comments WBC (test code = See_Comment [Automated 6174-2) message] The sy stem which generated this result transmitted reference range : 4.30 - 11.10 10*3/?L. The reference range was not used to interpret this result as normal/abnormal . RBC (test code = See_Comment L [Automated 383-8) message] The sy stem which generated this [...] RDW-SD (test code = 46.4 fL 39.0-49.9 98067-6) RDW-CV (test code = 14.4 % 12.0-15.5 788-0) PLT (test code = See_Comment [Automated 777-3) message] The sy stem which generated this result transmitted reference range : 166 - 358 10*3/ ?L. The reference r josselyn was not used to interpret this result as normal/abnormal . MPV (test code = 8.9 fL 9.5-12.9 L 56047-1) NRBC/100 WBC (test See_Comment [Automat ed code = 0491941545) message] The system which generated this result transmitted reference range : 0.0 - 10.0 /100 WBCs. The refer ence range was not u sed to interpret th is result as normal/abnormal . NRBC x10^3 (test code <0.01 See_Comment [Auto mated = 1920267204) message] The s ystem which generated this result transmitted reference range : 10*3/?L. The reference range was not used to interpret this result as normal/abnormal . GRAN MAT (NEUT) % 71.1 % (test code = 770-8) IMM GRAN % (test code 0.30 % = 7344847644) LYMPH % (test code = 17.7 % 736-9) MONO % (test code = 7.2 % 5905-5) EOS % (test code = 2.6 % 713-8) BASO % (test code = 1.1 % 706-2) GRAN MAT x10^3(ANC) 4.43 10*3/uL 1.88-7.09 (test code = 5811847445) IMM GRAN x10^3 (test <0.03 0.00-0.06 code = 2024489205) LYMPH x10^3 (test code 1.10 10*3/uL 1.32-3.29 L = 731-0) MONO x10^3 (test code 0.45 10*3/uL 0.33-0.92 = 742-7) EOS x10^3 (test code = 0.16 10*3/uL 0.03-0.39 711-2) BASO x10^3 (test code 0.07 10*3/uL 0.01-0.07 = 704-7) Lab Interpretation Abnormal (test code = 05313-3) [facility] GLUCOSE (AUTOMATED)2022-01-05 05:12:00 Test Item Value Reference Range Interpretation Comments POCT GLU (test code = 5681188817) 178 mg/dL 70-110 H Lab Interpretation (test code = Abnormal 00507-8) [facility] GLUCOSE (AUTOMATED)2022-01-04 22:12:41 Test Item Value Reference Range Interpretation Comments POCT GLU (test code = 6231309028) 154 mg/dL 70-110 H Lab Interpretation (test code = Abnormal 06183-1) [facility] GLUCOSE (AUTOMATED)2022-01-04 17:15:55 Test Item Value Reference Range Interpretation Comments POCT GLU (test code = 3662829512) 204 mg/dL 70-110 H Lab Interpretation (test code = Abnormal 73576-4) [facility] [id number] 13:56:02 Test Item Value Reference Range Interpretation Comments SPUTUM CULTURE 1+ Respiratory iveth: (test code = 622-1) Commensal upper respiratory microorganisms only. Gram stain (test No Epithelial cells code = 664-3) JENNIFFER (test code = Bacterial pathogens JENNIFFER) associated with lower respiratory infections were not identified, which include Pseudomonas aeruginosa and Staphylococcus aureus (MRSA or MSSA). [facility] - Please draw trough at [id number] 11:47:19 Test Item Value Reference Range Interpretation Comments VANCO TROUGH (test code 11.3 ug/mL 10.0-20.0 = 1538539168) JENNIFFER (test code = JENNIFFER) Toxic Range: ?>20 ug/mL 15-20 ug/mL is recommended for severe infection or when Vancomycin TORITO is greater than or equal to 2. Lab Interpretation (test Normal code = 86468-5) [facility] 11:19:57 Test Item Value Reference Range Interpretation Comments POCT GLU (test code = 7571943202) 189 mg/dL 70-110 H Lab Interpretation (test code = Abnormal 26649-7) [facility] METABOLIC PANEL (NA, K, CL, CO2, GLUCOSE, BUN, CREATININE, CA)2022-01-04 11:17:16 Test Item Value Reference Range Interpretation Comments NA (test code = 140 mmol/L 135-145 6124325316) K (test code = 3.3 mmol/L 3.5-5.0 L 1360599935) CL (test code = 99 mmol/L 98-108 4051737884) CO2 TOTAL (test code = 35 mmol/L 23-31 H 9617352507) AGAP (test code = 2-16 7066182906) BUN (test code = 18 mg/dL 7-23 1140731929) GLUCOSE (test code = 172 mg/dL 70-110 H 6196034773) CREATININE (test code = 0.89 mg/dL 0.50-1.04 9192748395) CALCIUM (test code = 8.2 mg/dL 8.6-10.6 L 5568823908) eGFR (test code = mL/min/1.73m2 6678557092) JENNIFFER (test code = JENNIFFER) Association of [...] tests). Lab Interpretation Abnormal (test code = 50929-2) [facility] 11:17:16 Test Item Value Reference Range Interpretation Comments MAGNESIUM (test code = 5172175315) 2.3 mg/dL 1.7-2.4 Lab Interpretation (test code = Normal 77539-3) [facility] 11:17:16 Test Item Value Reference Range Interpretation Comments PHOSPHORUS (test code = 3739580145) 2.7 mg/dL 2.5-5.0 Lab Interpretation (test code = Normal 11658-8) [facility] [id number] 11:03:17 Test Item Value Reference Range Interpretation [...] RDW-SD (test code = 46.0 fL 39.0-49.9 44101-7) RDW-CV (test code = 14.4 % 12.0-15.5 788-0) PLT (test code = See_Comment [Automated 777-3) message] The sy stem which generated this result transmitted reference range : 166 - 358 10*3/ ?L. The reference r josselyn was not used to interpret this result as normal/abnormal . MPV (test code = 9.1 fL 9.5-12.9 L 17986-4) NRBC/100 WBC (test See_Comment [Automat ed code = 7219832375) message] The system which generated this result transmitted reference range : 0.0 - 10.0 /100 WBCs. The refer ence range was not u sed to interpret th is result as normal/abnormal . NRBC x10^3 (test code <0.01 See_Comment [Auto mated = 9625182009) message] The s ystem which generated this result transmitted reference range : 10*3/?L. The reference range was not used to interpret this result as normal/abnormal . GRAN MAT (NEUT) % 78.8 % (test code = 770-8) IMM GRAN % (test code 0.50 % = 7468739124) LYMPH % (test code = 11.8 % 736-9) MONO % (test code = 6.8 % 5905-5) EOS % (test code = 1.4 % 713-8) BASO % (test code = 0.7 % 706-2) GRAN MAT x10^3(ANC) 6.65 10*3/uL 1.88-7.09 (test code = 3993596333) IMM GRAN x10^3 (test 0.04 10*3/uL 0.00-0.06 code = 9836378288) LYMPH x10^3 (test code 1.00 10*3/uL 1.32-3.29 L = 731-0) MONO x10^3 (test code 0.57 10*3/uL 0.33-0.92 = 742-7) EOS x10^3 (test code = 0.12 10*3/uL 0.03-0.39 711-2) BASO x10^3 (test code 0.06 10*3/uL 0.01-0.07 = 704-7) Lab Interpretation Abnormal (test code = 66712-6) [facility] GLUCOSE (AUTOMATED)2022-01-04 06:29:40 Test Item Value Reference Range Interpretation Comments POCT GLU (test code = 6339100859) 211 mg/dL 70-110 H Lab Interpretation (test code = Abnormal 57958-8) [facility] GLUCOSE (AUTOMATED)2022-01-03 21:23:29 Test Item Value Reference Range Interpretation Comments POCT GLU (test code = 255 mg/dL 70-110 H Notifi ed Provider 8184076267) Lab Interpretation (test Abnormal code = 38757-1) [facility] GLUCOSE (AUTOMATED)2022-01-03 16:51:46 Test Item Value Reference Range Interpretation Comments POCT GLU (test code = 332 mg/dL 70-110 H Notifi ed Provider 8396594153) Lab Interpretation (test Abnormal code = 25708-6) [facility] GLUCOSE (AUTOMATED)2022-01-03 13:01:05 Test Item Value Reference Range Interpretation Comments POCT GLU (test code = 2864382994) 332 mg/dL 70-110 H Lab Interpretation (test code = Abnormal 21870-7) [facility] + Lactic [id number] 10:21:11 Test Item Value Reference Range Interpretation Comments PH (test code = 2) 7.35-7.45 PCO2 (test code = See_Comment H [Automate d 8935873941) message] The sy stem which generated this result transmitted reference range : 35 - 45 mmHg. The reference range was not used to interpret this result as normal/abnormal . PO2 (test code = See_Comment [Automated 7092703842) message] The sy stem which generated this result transmitted reference range : 80 - 100 mmHg. The reference range was not used to interpret this result as normal/abnormal . HCO3 (test code = See_Comment H [Automate d 2100157054) message] The sy stem which generated this result transmitted reference range : 22 - 26 mEq/L. The reference range was not used to interpret this result as normal/abnormal . BE (test code = See_Comment H [Automated 3335056676) message] The sy stem which generated this result transmitted reference range : -3.0 - 3.0 mEq/ L. The reference r josselyn was not used to interpret this result as normal/abnormal . THB (test code = 10.1 g/dL 12.0-16.0 L 1355695217) %O2HB (test code = 95.5 % 94.0-99.0 6201360410) %COHB ART (test code = 0.3 % 0.0-1.5 0667862307) %METHB ART (test code = 0.1 % 0.4-1.5 L 0114005485) VOL%O2 ART (test code = 13.7 % 15.0-23.0 L 7880743568) NA (test code = 138 mmol/L 135-145 4206330382) K+ (test code = 4.1 mmol/L 3.5-5.0 0214449902) AC CA IONZ (test code = 4.50 mg/dL 4.50-5.30 0582304935) GLUCOSE (test code = 325 mg/dL 70-110 H 9292251141) LACTIC ACID (test code 1.27 mmol/L 0.50-2.20 = 9436413142) Lab Interpretation Abnormal (test code = 21599-0) [facility] 10:18:30 Test Item Value Reference Range Interpretation Comments POCT GLU (test code = 1696560247) 338 mg/dL 70-110 H Lab Interpretation (test code = Abnormal 70804-1) [facility] METABOLIC PANEL (NA, K, CL, CO2, GLUCOSE, BUN, CREATININE, CA)2022-01-03 09:15:37 Test Item Value Reference Range Interpretation Comments NA (test code = 141 mmol/L 135-145 9379356547) K (test code = 4.3 mmol/L 3.5-5.0 7081615237) CL (test code = 103 mmol/L 98-108 0161555351) CO2 TOTAL (test code = 34 mmol/L 23-31 H 9337973705) AGAP (test code = 2-16 6570025457) BUN (test code = 19 mg/dL 7-23 6246000948) GLUCOSE (test code = 295 mg/dL 70-110 H 9019021612) CREATININE (test code = 0.80 mg/dL 0.50-1.04 6642733906) CALCIUM (test code = 7.9 mg/dL 8.6-10.6 L 0031604040) eGFR (test code = mL/min/1.73m2 3439342350) JENNIFFER (test code = JENNIFFER) Association of [...] tests). Lab Interpretation Abnormal (test code = 62557-5) [facility] 09:15:12 Test Item Value Reference Range Interpretation Comments MAGNESIUM (test code = 7088964732) 2.3 mg/dL 1.7-2.4 Lab Interpretation (test code = Normal 04919-3) [facility] WITH [id number] 09:02:53 Test Item Value Reference Range Interpretation [...] RDW-SD (test code = 46.8 fL 39.0-49.9 22400-7) RDW-CV (test code = 14.3 % 12.0-15.5 788-0) PLT (test code = See_Comment [Automated 777-3) message] The sy stem which generated this result transmitted reference range : 166 - 358 10*3/ ?L. The reference r josselyn was not used to interpret this result as normal/abnormal . MPV (test code = 9.1 fL 9.5-12.9 L 95886-1) NRBC/100 WBC (test See_Comment [Automat ed code = 1071334014) message] The system which generated this result transmitted reference range : 0.0 - 10.0 /100 WBCs. The refer ence range was not u sed to interpret th is result as normal/abnormal . NRBC x10^3 (test code <0.01 See_Comment [Auto mated = 4991836551) message] The s ystem which generated this result transmitted reference range : 10*3/?L. The reference range was not used to interpret this result as normal/abnormal . GRAN MAT (NEUT) % 86.9 % (test code = 770-8) IMM GRAN % (test code 0.50 % = 7014724185) LYMPH % (test code = 6.5 % 736-9) MONO % (test code = 5.2 % 5905-5) EOS % (test code = 0.6 % 713-8) BASO % (test code = 0.3 % 706-2) GRAN MAT x10^3(ANC) 8.30 10*3/uL 1.88-7.09 H (test code = 3243875784) IMM GRAN x10^3 (test 0.05 10*3/uL 0.00-0.06 code = 1145928616) LYMPH x10^3 (test code 0.62 10*3/uL 1.32-3.29 L = 731-0) MONO x10^3 (test code 0.50 10*3/uL 0.33-0.92 = 742-7) EOS x10^3 (test code = 0.06 10*3/uL 0.03-0.39 711-2) BASO x10^3 (test code 0.03 10*3/uL 0.01-0.07 = 704-7) Lab Interpretation Abnormal (test code = 86470-1) [facility] GLUCOSE (AUTOMATED)2022-01-03 04:48:55 Test Item Value Reference Range Interpretation Comments POCT GLU (test code = 1831094920) 258 mg/dL 70-110 H Lab Interpretation (test code = Abnormal 92502-8) [facility] GLUCOSE (AUTOMATED)2022-01-02 22:17:43 Test Item Value Reference Range Interpretation Comments POCT GLU (test code = 274 mg/dL 70-110 H Notifi ed Provider [id number]) Lab Interpretation (test Abnormal code = 53157-3) [facility] GLUCOSE (AUTOMATED)2022-01-02 16:29:06 Test Item Value Reference Range Interpretation Comments POCT GLU (test code = 321 mg/dL 70-110 H Notifi ed Provider 1381501881) Lab Interpretation (test Abnormal code = 84569-8) [facility] 15:12:15 Test Item Value Reference Range Interpretation Comments HGB A1C (test code = 10.4 % 4.0-5.7 H 4548-4) JENNIFFER (test code = JENNIFFER) Reference RangesNormal: <5.7%Prediabetes: 5.7 - 6.4%Diabetes: > 6.5% Lab Interpretation (test Abnormal code = 94501-5) [facility] + Lactic [id number] 12:41:39 Test Item Value Reference Range Interpretation Comments PH (test code = 2) 7.35-7.45 L PCO2 (test code = See_Comment H [Automate d 1154899289) message] The sy stem which generated this result transmitted reference range : 35 - 45 mmHg. The reference range was not used to interpret this result as normal/abnormal . PO2 (test code = See_Comment H [Automated 0583686224) message] The sy stem which generated this result transmitted reference range : 80 - 100 mmHg. The reference range was not used to interpret this result as normal/abnormal . HCO3 (test code = See_Comment [Automate d 2313449367) message] The sy stem which generated this result transmitted reference range : 22 - 26 mEq/L. The reference range was not used to interpret this result as normal/abnormal . BE (test code = See_Comment [Automated 8817143723) message] The sy stem which generated this result transmitted reference range : -3.0 - 3.0 mEq/ L. The reference r josselyn was not used to interpret this result as normal/abnormal . THB (test code = 10.0 g/dL 12.0-16.0 L 2441534406) %O2HB (test code = 97.7 % 94.0-99.0 9486627800) %COHB ART (test code = 0.3 % 0.0-1.5 0209837804) %METHB ART (test code = 0.2 % 0.4-1.5 L 2007512696) VOL%O2 ART (test code = 14.0 % 15.0-23.0 L 5149410826) NA (test code = 137 mmol/L 135-145 9629706655) K+ (test code = 5.2 mmol/L 3.5-5.0 H 1073044049) AC CA IONZ (test code = 4.60 mg/dL 4.50-5.30 2253800856) GLUCOSE (test code = 306 mg/dL 70-110 H 8222585176) LACTIC ACID (test code 0.77 mmol/L 0.50-2.20 = 5781461976) Lab Interpretation Abnormal (test code = 83524-1) [facility] GLUCOSE (AUTOMATED)2022-01-02 12:28:29 Test Item Value Reference Range Interpretation Comments POCT GLU (test code = 362 mg/dL 70-110 H Notifi ed Provider [id number]) Lab Interpretation (test Abnormal code = 64118-1) [facility] Metabolic Panel (NA, K, CL, CO2, Glucose, BUN, Creatinine, CA)2022-01-02 11:02:42 Test Item Value Reference Range Interpretation Comments NA (test code = 138 mmol/L 135-145 [id number]) K (test code = 5.3 mmol/L 3.5-5.0 H [id number]) CL (test code = 102 mmol/L 98-108 [id number]) CO2 TOTAL (test code = 29 mmol/L 23-31 8557718773) AGAP (test code = 2-16 2546810233) BUN (test code = 17 mg/dL 7-23 5523107908) GLUCOSE (test code = 343 mg/dL 70-110 H 2867976499) CREATININE (test code = 0.81 mg/dL 0.50-1.04 0587839880) CALCIUM (test code = 8.1 mg/dL 8.6-10.6 L 5151224744) eGFR (test code = mL/min/1.73m2 3448558147) JENNIFFER (test code = JENNIFFER) Association of [...] tests). Lab Interpretation Abnormal (test code = 78976-6) [facility] with Bjcvxvttnjaj9932-62-01 10:52:23 Test Item Value Reference Range Interpretation Comments WBC (test code = See_Comment H [Automated 9490-2) message] The system which generated this result [...] RDW-SD (test code = 49.3 fL 39.0-49.9 17034-8) RDW-CV (test code = 14.7 % 12.0-15.5 788-0) PLT (test code = See_Comment [Automated 777-3) message] The system which generated this result transmit alden reference range : 166 - 358 10*3/ ?L. The reference range was not u sed to interpret th is result as normal/abnormal . MPV (test code = 9.8 fL 9.5-12.9 09844-0) NRBC/100 WBC (test See_Comment [Automat ed code = 9349099569) message] The system which generated this result transmit alden reference range : 0.0 - 10.0 /100 WBCs. The reference range was not used to interpret this result as normal/abnormal . NRBC x10^3 (test code <0.01 See_Comment [Auto mated = 9899474117) message] The system which generated this result transmit alden reference range : 10*3/?L. The reference range was not used to interpret this result as normal/abnormal . GRAN MAT (NEUT) % 90.3 % (test code = 770-8) IMM GRAN % (test code 1.00 % = 8914157651) LYMPH % (test code = 4.0 % 736-9) MONO % (test code = 4.0 % 5905-5) EOS % (test code = 0.3 % 713-8) BASO % (test code = 0.4 % 706-2) GRAN MAT x10^3(ANC) 13.28 10*3/uL 1.88-7.09 H (test code = 2750597220) IMM GRAN x10^3 (test 0.15 10*3/uL 0.00-0.06 H code = 6808635256) LYMPH x10^3 (test code 0.59 10*3/uL 1.32-3.29 L = 731-0) MONO x10^3 (test code 0.59 10*3/uL 0.33-0.92 = 742-7) EOS x10^3 (test code = 0.04 10*3/uL 0.03-0.39 711-2) BASO x10^3 (test code 0.06 10*3/uL 0.01-0.07 = 704-7) Lab Interpretation Abnormal (test code = 20897-5) [facility] 10:20:11 Test Item Value Reference Range Interpretation Comments PH (test code = 2) 7.35-7.45 LL PCO2 (test code = See_Comment H [Automate d message] 8840936052) The system [employer] generated this result transmit alden reference range : 35 - 45 mmHg. The reference range was not used to interpret this result as normal/abnormal . PO2 (test code = See_Comment H [Automated message] 5730899584) The system [employer] generated this result transmit alden reference range : 80 - 100 mmHg. The reference range was not used to interpret this result as normal/abnormal . HCO3 (test code = See_Comment [Automate d message] 5565836783) The system [employer] generated this result transmit alden reference range : 22 - 26 mEq/L. The reference range was not used to interpret this result as normal/abnormal . BE (test code = See_Comment L [Automated message] 0822724097) The system [employer] generated this result transmit alden reference range : -3.0 - 3.0 mEq/ L. The reference r josselyn was not used to interpret this result as normal/abnormal . THB (test code = 10.9 g/dL 12.0-16.0 L 0355654912) %O2HB (test code = 97.4 % 94.0-99.0 1806256774) %COHB ART (test code = 0.3 % 0.0-1.5 8028528446) %METHB ART (test code = 0.1 % 0.4-1.5 L 0610380501) VOL%O2 ART (test code = 15.1 % 15.0-23.0 1872982673) NA (test code = 136 mmol/L 135-145 5138807132) K+ (test code = 5.5 mmol/L 3.5-5.0 H 6279166316) AC CA IONZ (test code = 4.70 mg/dL 4.50-5.30 5413264163) GLUCOSE (test code = 348 mg/dL 70-110 H 6824317043) Lab Interpretation Abnormal (test code = 97626-0) [facility] [id number] 03:01:55 Test Item Value Reference Interpretation Comments Range TROPONIN I (test 0.001 ng/mL See_Comment [Automated code = 0027205164) message] The system which generated this result [...] biotin. Lab Interpretation Normal (test code = 82209-4) [facility] E[facility]W-QGQ0081-81-10 02:58:58 Test Item Value Reference Range Interpretation Comments NT-proBNP (test code 183 pg/mL See_Comment H [Autom ated = 5654183271) message] The system which generated this result transmitted reference range : <=125. The reference range was not used to interpret this result as normal/abnormal . JENNIFFER (test code = JENNIFFER) Biotin has been reported to cause a negative bias, interpret results relative to patient's use of biotin. Lab Interpretation Abnormal (test code = 76960-8) [facility]. METABOLIC PANEL ([id number])2022-01-02 02:50:56 Test Item Value Reference Range Interpretation Comments NA (test code = 137 mmol/L 135-145 4495855907) K (test code = 4.6 mmol/L 3.5-5.0 2980458996) CL (test code = 103 mmol/L 98-108 0007431074) CO2 TOTAL (test code = 26 mmol/L 23-31 8852551657) AGAP (test code = 2-16 4883871699) BUN (test code = 20 mg/dL 7-23 6471106697) GLUCOSE (test code = 310 mg/dL 70-110 H 1082201930) CREATININE (test code = 1.14 mg/dL 0.50-1.04 H 8354498538) TOTAL BILI (test code = 0.3 mg/dL 0.1-1.1 9281151580) CALCIUM (test code = 8.1 mg/dL 8.6-10.6 L 5487663179) T PROTEIN (test code = 6.6 g/dL 6.3-8.2 7261316913) ALBUMIN (test code = 3.8 g/dL 3.5-5.0 2812650497) ALK PHOS (test code = 143 U/L 34-122 H 5927528682) ALTv (test code = 46 U/L 5-35 H 1742-6) AST(SGOT) (test code = 81 U/L 13-40 H 9454769694) eGFR (test code = mL/min/1.73m2 3427684987) JENNIFFER (test code = JENNIFFER) Association of [...] tests). Lab Interpretation Abnormal (test code = 91453-6) [facility] WITH [id number] 02:39:55 Test Item Value Reference Range Interpretation [...] RDW-SD (test code = 49.2 fL 39.0-49.9 25770-2) RDW-CV (test code = 14.8 % 12.0-15.5 788-0) PLT (test code = See_Comment [Automated 777-3) message] The system which generated this result transmit alden reference range : 166 - 358 10*3/ ?L. The reference range was not u sed to interpret th is result as normal/abnormal . MPV (test code = 10.0 fL 9.5-12.9 31957-3) NRBC/100 WBC (test See_Comment [Automat ed code = 6785554318) message] The system which generated this result transmit alden reference range : 0.0 - 10.0 /100 WBCs. The reference range was not used to interpret this result as normal/abnormal . NRBC x10^3 (test code <0.01 See_Comment [Auto mated = 3321296847) message] The system which generated this result transmit alden reference range : 10*3/?L. The reference range was not used to interpret this result as normal/abnormal . GRAN MAT (NEUT) % 85.4 % (test code = 770-8) IMM GRAN % (test code 0.60 % = 3204358588) LYMPH % (test code = 6.4 % 736-9) MONO % (test code = 5.5 % 5905-5) EOS % (test code = 1.6 % 713-8) BASO % (test code = 0.5 % 706-2) GRAN MAT x10^3(ANC) 10.20 10*3/uL 1.88-7.09 H (test code = 2546284456) IMM GRAN x10^3 (test 0.07 10*3/uL 0.00-0.06 H code = 0229185532) LYMPH x10^3 (test code 0.76 10*3/uL 1.32-3.29 L = 731-0) MONO x10^3 (test code 0.66 10*3/uL 0.33-0.92 = 742-7) EOS x10^3 (test code = 0.19 10*3/uL 0.03-0.39 711-2) BASO x10^3 (test code 0.06 10*3/uL 0.01-0.07 = 704-7) Lab Interpretation Abnormal (test code = 84575-5) [facility] [id number] 04:57:10 Test Item Value Reference Interpretation Comments Range TROPONIN I (test 0.001 ng/mL See_Comment [Automated code = 6010913692) message] The system which generated this result [...] biotin. Lab Interpretation Normal (test code = 44762-3) [facility] [id number]-[id number] 04:53:49 Test Item Value Reference Range Interpretation Comments NT-proBNP (test code 79 pg/mL See_Comment [Autom ated = 8137337649) message] The system which generated this result transmitted reference range : <=125. The reference range was not used to interpret this result as normal/abnormal . JENNIFFER (test code = JENNIFFER) Biotin has been reported to cause a negative bias, interpret results relative to patient's use of biotin. Lab Interpretation Normal (test code = 85631-3) [facility]. METABOLIC PANEL ([id number])2021-12-09 04:46:26 Test Item Value Reference Range Interpretation Comments NA (test code = 138 mmol/L 135-145 2241817288) K (test code = 4.4 mmol/L 3.5-5.0 8380892765) CL (test code = 95 mmol/L 98-108 L 9672790247) CO2 TOTAL (test code = 35 mmol/L 23-31 H 5969317386) AGAP (test code = 2-16 3084943897) BUN (test code = 16 mg/dL 7-23 2253697861) GLUCOSE (test code = 276 mg/dL 70-110 H 3437840601) CREATININE (test code = 0.89 mg/dL 0.50-1.04 6123110221) TOTAL BILI (test code = 0.5 mg/dL 0.1-1.4 2782010106) CALCIUM (test code = 9.1 mg/dL 8.6-10.6 3489908319) T PROTEIN (test code = 7.0 g/dL 6.3-8.2 1455843146) ALBUMIN (test code = 4.2 g/dL 3.5-5.0 4539487115) ALK PHOS (test code = 141 U/L 34-122 H 4685216546) ALTv (test code = 65 U/L 5-35 H 1742-6) AST(SGOT) (test code = 81 U/L 13-40 H 2209332757) eGFR (test code = mL/min/1.73m2 0881121904) JENNIFFER (test code = JENNIFFER) Association of [...] tests). Lab Interpretation Abnormal (test code = 11646-4) [facility] 04:46:26 Test Item Value Reference Range Interpretation Comments LIPASE (test code = 3902791513) 82 U/L 0-220 Lab Interpretation (test code = Normal 45112-7) [facility] WITH [id number] 04:27:44 Test Item Value Reference Range Interpretation Comments WBC (test code = See_Comment [Automated 9652-2) message] The sy stem which generated this result transmitted reference range : 4.30 - 11.10 10*3/?L. The reference range was not used to interpret this result as normal/abnormal . RBC (test code = See_Comment L [Automated 022-8) message] The sy stem which generated this [...] RDW-SD (test code = 46.9 fL 39.0-49.9 55687-0) RDW-CV (test code = 14.2 % 12.0-15.5 788-0) PLT (test code = See_Comment [Automated 777-3) message] The sy stem which generated this result transmitted reference range : 166 - 358 10*3/ ?L. The reference r josselyn was not used to interpret this result as normal/abnormal . MPV (test code = 9.0 fL 9.5-12.9 L 29360-2) NRBC/100 WBC (test See_Comment [Automat ed code = 4426285943) message] The system which generated this result transmitted reference range : 0.0 - 10.0 /100 WBCs. The refer ence range was not u sed to interpret th is result as normal/abnormal . NRBC x10^3 (test code <0.01 See_Comment [Auto mated = 9579663894) message] The s ystem which generated this result transmitted reference range : 10*3/?L. The reference range was not used to interpret this result as normal/abnormal . GRAN MAT (NEUT) % 79.4 % (test code = 770-8) IMM GRAN % (test code 0.60 % = 7913529338) LYMPH % (test code = 10.9 % 736-9) MONO % (test code = 5.7 % 5905-5) EOS % (test code = 2.7 % 713-8) BASO % (test code = 0.7 % 706-2) GRAN MAT x10^3(ANC) 7.19 10*3/uL 1.88-7.09 H (test code = 8757448733) IMM GRAN x10^3 (test 0.05 10*3/uL 0.00-0.06 code = 7257871265) LYMPH x10^3 (test code 0.99 10*3/uL 1.32-3.29 L = 731-0) MONO x10^3 (test code 0.52 10*3/uL 0.33-0.92 = 742-7) EOS x10^3 (test code = 0.24 10*3/uL 0.03-0.39 711-2) BASO x10^3 (test code 0.06 10*3/uL 0.01-0.07 = 704-7) Lab Interpretation Abnormal (test code = 49597-4) [facility] GLUCOSE (AUTOMATED)2021-09-23 17:25:54 Test Item Value Reference Range Interpretation Comments POCT GLU (test code = 9805681798) 234 mg/dL 70-110 H Lab Interpretation (test code = Abnormal 30406-1) [facility] GLUCOSE (AUTOMATED)2021-09-23 13:58:43 Test Item Value Reference Range Interpretation Comments POCT GLU (test code = 1816834716) 202 mg/dL 70-110 H Lab Interpretation (test code = Abnormal 44941-7) [facility] METABOLIC PANEL (NA, K, CL, CO2, GLUCOSE, BUN, CREATININE, CA)2021-09-23 11:51:27 Test Item Value Reference Range Interpretation Comments NA (test code = 139 mmol/L 135-145 5343804047) K (test code = 3.9 mmol/L 3.5-5.0 8487356517) CL (test code = 93 mmol/L 98-108 L 5031732418) CO2 TOTAL (test code = 40 mmol/L 23-31 H 2824739248) AGAP (test code = 2-16 0144454555) BUN (test code = 26 mg/dL 7-23 H 6669946814) GLUCOSE (test code = 223 mg/dL 70-110 H 8729271850) CREATININE (test code = 0.96 mg/dL 0.50-1.04 4398957321) CALCIUM (test code = 9.2 mg/dL 8.6-10.6 7732762832) eGFR (test code = mL/min/1.73m2 9951337843) JENNIFFER (test code = JENNIFFER) Association of [...] tests). Lab Interpretation Abnormal (test code = 27655-5) [facility] WITHOUT [id number] 10:53:54 Test Item Value Reference Range Interpretation Comments WBC (test code = 6690-2) See_Comment H [A utomated message] The system [employer] generated this result transmit alden reference range : 4.30 - 11.10 10*3/?L. The reference range was not used to interpret this result as normal/abnormal . RBC (test code = 789-8) See_Comment L [Au tomated message] The system [employer] generated this result transmit alden reference range [...] 777-3) See_Comment [Au tomated message] The system [employer] generated this result transmit alden reference range : 166 - 358 10*3/?L. The reference range was not used to interpret this result as normal/abnormal . MPV (test code = 9.2 fL 9.5-12.9 L 67986-2) RDW-CV (test code = 13.5 % 12.0-15.5 788-0) RDW-SD (test code = 44.3 fL 39.0-49.9 01252-1) NRBC x10^3 (test code = <0.01 See_Comment [Au tomated message] 5507828327) The system [employer] generated this result transmit alden reference range : 10*3/?L. The reference range was not used to interpret this result as normal/abnormal . NRBC/100 WBC (test code See_Comment [Au tomated message] = 1601385647) The system [facility] generated this result transmit alden reference range : 0.0 - 10.0 /100 WBC s. The reference r josselyn was not used to interpret this result as normal/abnormal . IPF % (test code = 6997091203) Lab Interpretation (test Abnormal code = 78044-1) [facility] GLUCOSE (AUTOMATED)2021-09-23 10:17:17 Test Item Value Reference Range Interpretation Comments POCT GLU (test code = 2628054096) 217 mg/dL 70-110 H Lab Interpretation (test code = Abnormal 04411-7) [facility] GLUCOSE (AUTOMATED)2021-09-23 05:44:27 Test Item Value Reference Range Interpretation Comments POCT GLU (test code = 8302489226) 338 mg/dL 70-110 H Lab Interpretation (test code = Abnormal 98551-9) [facility] GLUCOSE (AUTOMATED)2021-09-23 02:18:55 Test Item Value Reference Range Interpretation Comments POCT GLU (test code = 7036437027) 365 mg/dL 70-110 H Lab Interpretation (test code = Abnormal 19335-3) [facility]2021-09-23 00:11:44 Test Item Value Reference Range Interpretation Comments LVOT stroke volume (test 68.50 cm3 code = 7506536282) EF(Teich) (test code = 68.30 % 2912543760) LVIDD (test code = 4.00 cm 4811730000) LVIDS (test code = 2.49 cm 7838307047) IVS (test code = 1.07 cm 8323656929) LVPWD (test code = 1.08 cm 6652096530) LVOT diameter (test code 1.92 cm = 7378605335) FS (test code = 38 % 4115692045) MV Peak E Marva (test code 83.4 cm/s = 6569006266) MV Peak A Marva (test code 136.1 cm/s = 0651954587) E/A ratio (test code = ratio 8449150399) E wave decelartion time 0.16 s (test code = 5965381931) MV E/e' septal (test 7.1 cm/s code = 5416804824) LA Volume Index (BP) 21.8 mL/m2 (test code = 5371205569) LA volume (BP) (test 43.7 mL code = 5006103396) LVOT peak marva (test code 137.5 cm/s = 5251343950) LVOT mn grad (test code mmHg = 0340762226) LA size (test code = 3.9 cm 3066471536) LAV(MOD-sp2) (test code 43.50 mL = 8646095735) LAV(MOD-sp4) (test code 42.50 mL = 9039547390) Tapse (test code = 1.88 cm 6812906097) AV LVOT peak gradient mmHg (test code = 9322860007) LVOT peak VTI (test code 23.5 cm = 0326880657) LV V1 mean (test code = 92.90 cm/s 6813192654) MV Prop V (test code = 46.60 cm/s 7518185311) Ao root annulus (test 3.1 cm code = 9090320269) Ao root diam (test code 3.10 cm = 7883653178) Aortic root (test code = 3.1 cm 3055487924) PW (test code = 1.08 cm 0.6-1.1 2616647953) EF - 2D (test code = 68.30 % 55277640) Interventricular Septum 1.07 cm Diastolic Thickness by 2D (test code = 5444430) Radiology Study observation (narrative) (test code = 81856-6) JENNIFFER (test code = JENNIFFER) ?Left?Ventricle: Normal [...] (104.3 kg) 2.12 sq meters 118/66 96 [facility] GLUCOSE (AUTOMATED)2021-09-22 22:23:31 Test Item Value Reference Range Interpretation Comments POCT GLU (test code = 8815867456) 389 mg/dL 70-110 H Lab Interpretation (test code = Abnormal 84561-5) [facility] [id number] 21:48:25 Test Item Value Reference Range Interpretation Comments SPUTUM CULTURE (test Specimen cellular code = 622-1) elements do not represent lower respiratory tract. Specimen rejected for routine bacterial culture. Suggest reorder and recollection. [facility] GLUCOSE (AUTOMATED)2021-09-22 20:03:02 Test Item Value Reference Range Interpretation Comments POCT GLU (test code = 5972098542) 365 mg/dL 70-110 H Lab Interpretation (test code = Abnormal 69522-7) [facility] GLUCOSE (AUTOMATED)2021-09-22 18:09:08 Test Item Value Reference Range Interpretation Comments POCT GLU (test code = 4249154671) 361 mg/dL 70-110 H Lab Interpretation (test code = Abnormal 12673-9) [facility]2021-09-22 13:24:25 Test Item Value Reference Range Interpretation Comments POCT GLU (test code = 9320056827) 394 mg/dL 70-110 H Lab Interpretation (test code = Abnormal 27618-2) [facility] + LACTIC CRQW1630-09-40 13:21:48 Test Item Value Reference Range Interpretation Comments PH (test code = 2) 7.35-7.45 PCO2 (test code = See_Comment H [Automate d 8144774809) message] The sy stem which generated this result transmitted reference range : 35 - 45 mmHg. The reference range was not used to interpret this result as normal/abnormal . PO2 (test code = See_Comment L [Automated 4657562130) message] The sy stem which generated this result transmitted reference range : 80 - 100 mmHg. The reference range was not used to interpret this result as normal/abnormal . HCO3 (test code = See_Comment H [Automate d 7236855796) message] The sy stem which generated this result transmitted reference range : 22 - 26 mEq/L. The reference range was not used to interpret this result as normal/abnormal . BE (test code = See_Comment H [Automated 2490476999) message] The sy stem which generated this result transmitted reference range : -3.0 - 3.0 mEq/ L. The reference r josselyn was not used to interpret this result as normal/abnormal . THB (test code = 11.0 g/dL 12.0-16.0 L 6715450899) %O2HB (test code = 92.4 % 94.0-99.0 L 2374467827) %COHB ART (test code = 0.3 % 0.0-1.5 3427890554) %METHB ART (test code = 0.3 % 0.4-1.5 L 5207521670) VOL%O2 ART (test code = 14.3 % 15.0-23.0 L 5117098814) NA (test code = 138 mmol/L 135-145 1864852138) K+ (test code = 4.7 mmol/L 3.5-5.0 8806894172) AC CA IONZ (test code = 4.70 mg/dL 4.50-5.30 4051850487) GLUCOSE (test code = 401 mg/dL 70-110 H 1461597969) LACTIC ACID (test code 1.76 mmol/L 0.50-2.20 = 4282320284) Lab Interpretation Abnormal (test code = 87824-3) [facility] Metabolic Panel (NA, K, CL, CO2, Glucose, BUN, Creatinine, CA)2021-09-22 13:08:40 Test Item Value Reference Range Interpretation Comments NA (test code = 139 mmol/L 135-145 7729419156) K (test code = 4.9 mmol/L 3.5-5.0 9095051315) CL (test code = 93 mmol/L 98-108 L 3441478340) CO2 TOTAL (test code = 38 mmol/L 23-31 H 9956724176) AGAP (test code = 2-16 9132937063) BUN (test code = 19 mg/dL 7-23 5026833871) GLUCOSE (test code = 393 mg/dL 70-110 H 3646352320) CREATININE (test code = 0.89 mg/dL 0.50-1.04 0393375815) CALCIUM (test code = 8.9 mg/dL 8.6-10.6 6910181805) eGFR (test code = mL/min/1.73m2 5962838981) JENNIFFER (test code = JENNIFFER) Association of [...] tests). Lab Interpretation Abnormal (test code = 39645-9) [facility]esium Kfslm4234-82-19 13:00:02 Test Item Value Reference Range Interpretation Comments MAGNESIUM (test code = 6151717754) 2.1 mg/dL 1.7-2.4 Lab Interpretation (test code = Normal 75784-7) [facility] HospitalPhosphorus [id number] 13:00:02 Test Item Value Reference Range Interpretation Comments PHOSPHORUS (test code = 7277592957) 3.3 mg/dL 2.5-5.0 Lab Interpretation (test code = Normal 39932-2) [facility] (ALB, T.PRO, BILI T, BU/BC, ALT, AST, ALK, PHOS)2021-09-22 13:00:02 Test Item Value Reference Range Interpretation Comments TOTAL BILI (test code = 0314646058) 0.7 mg/dL 0.1-1.1 BILI UNCON (test code = 3890420726) 0.1 mg/dL 0.1-1.1 BILI CONJ (test code = 5358503087) 0.0 mg/dL 0.0-0.3 T PROTEIN (test code = 6965282178) 8.1 g/dL 6.3-8.2 ALBUMIN (test code = 0425505809) 4.2 g/dL 3.5-5.0 ALK PHOS (test code = 1111957431) 145 U/L 34-122 H ALTv (test code = 1742-6) 34 U/L 5-35 AST(SGOT) (test code = 8151535691) 46 U/L 13-40 H Lab Interpretation (test code = Abnormal 36011-8) [facility] HospitalProthrombin Time / [id number] 12:42:02 Test Item Value Reference Range Interpretation [...] tions. Lab Interpretation (test Normal code = 20220-2) [facility] with Ocgdbgehnfzd2628-09-53 12:35:41 Test Item Value Reference Range Interpretation [...] RDW-SD (test code = 45.0 fL 39.0-49.9 35273-3) RDW-CV (test code = 13.7 % 12.0-15.5 788-0) PLT (test code = See_Comment [Automated 777-3) message] The sy stem which generated this result transmitted reference range : 166 - 358 10*3/ ?L. The reference r josselyn was not used to interpret this result as normal/abnormal . MPV (test code = 9.0 fL 9.5-12.9 L 10747-0) NRBC/100 WBC (test See_Comment [Automat ed code = 8515715653) message] The system which generated this result transmitted reference range : 0.0 - 10.0 /100 WBCs. The refer ence range was not u sed to interpret th is result as normal/abnormal . NRBC x10^3 (test code <0.01 See_Comment [Auto mated = 4778326873) message] The s ystem which generated this result transmitted reference range : 10*3/?L. The reference range was not used to interpret this result as normal/abnormal . GRAN MAT (NEUT) % 93.7 % (test code = 770-8) IMM GRAN % (test code 0.90 % = 7545164578) LYMPH % (test code = 3.2 % 736-9) MONO % (test code = 1.1 % 5905-5) EOS % (test code = 0.5 % 713-8) BASO % (test code = 0.6 % 706-2) GRAN MAT x10^3(ANC) 9.27 10*3/uL 1.88-7.09 H (test code = 8589643077) IMM GRAN x10^3 (test 0.09 10*3/uL 0.00-0.06 H code = 7140886102) LYMPH x10^3 (test code 0.32 10*3/uL 1.32-3.29 L = 731-0) MONO x10^3 (test code 0.11 10*3/uL 0.33-0.92 L = 742-7) EOS x10^3 (test code = 0.05 10*3/uL 0.03-0.39 711-2) BASO x10^3 (test code 0.06 10*3/uL 0.01-0.07 = 704-7) Lab Interpretation Abnormal (test code = 53655-2) [facility]GLYCOSYLATED HEMOGLOBIN (A1C)2021-09-22 12:16:03 Test Item Value Reference Range Interpretation Comments HGB A1C (test code = 6.4 % 4.0-5.7 H 4548-4) JENNIFFER (test code = JENNIFFER) Reference RangesNormal: <5.7%Prediabetes: 5.7 - 6.4%Diabetes: > 6.5% Lab Interpretation (test Abnormal code = 00935-3) [facility]TR[facility] [id number]36 Test Item Value Reference Interpretation Comments Range TROPONIN I (test <0.012 See_Comment [Automated code = [id number]) message] The system which generated this result [...] biotin. Lab Interpretation Normal (test code = 07280-3) [id number] 07:21:56 Test Item Value Reference Range Interpretation Comments NT-proBNP (test code 127 pg/mL See_Comment H [Autom ated = [id number]) message] The system which generated this result transmitted reference range : <=125. The reference range was not used to interpret this result as normal/abnormal . JENNIFFER (test code = JENNIFFER) Biotin has been reported to cause a negative bias, interpret results relative to patient's use of biotin. Lab Interpretation Abnormal (test code = 94114-8) [facility] (46239)2021-09-22 07:01:13 Test Item Value Reference Range Interpretation Comments NA (test code = 137 mmol/L 135-145 [id number]) K (test code = 4.9 mmol/L 3.5-5.0 2668952205) CL (test code = 96 mmol/L 98-108 L 0547078046) CO2 TOTAL (test code = 36 mmol/L 23-31 H 2742990718) AGAP (test code = 2-16 1002717946) BUN (test code = 18 mg/dL 7-23 9651991421) GLUCOSE (test code = 298 mg/dL 70-110 H 3170566652) CREATININE (test code = 0.73 mg/dL 0.50-1.04 2625451414) TOTAL BILI (test code = 0.6 mg/dL 0.1-1.8 6179096673) CALCIUM (test code = 8.5 mg/dL 8.6-10.6 L 9022464785) T PROTEIN (test code = 7.1 g/dL 6.3-8.2 2144268090) ALBUMIN (test code = 4.0 g/dL 3.5-5.0 7338378406) ALK PHOS (test code = 132 U/L 34-122 H 8419079248) ALTv (test code = 31 U/L 5-35 1742-6) AST(SGOT) (test code = 51 U/L 13-40 H 3506607530) eGFR (test code = mL/min/1.73m2 5734308107) JENNIFFER (test code = JENNIFFER) Association of [...] tests). Lab Interpretation Abnormal (test code = 31252-1) [id number] 06:54:12 Test Item Value Reference Range Interpretation Comments APTT Patient (test See_Comment [Automat ed code = 3173-2) message] The system which generated this result transmitted reference range : 23 - 38 Seconds . The reference range was not used to interpr et this result as normal/abnormal . JENNIFFER (test code = JENNIFFER) The [facility] patient population mean normal value for aPTT is 30 seconds. Lab Interpretation Normal (test code = 45827-6) [facility] / [id number] 06:52:12 Test Item Value Reference Range Interpretation [...] tions. Lab Interpretation (test Normal code = 91487-8) [facility] [id number] 06:44:31 Test Item Value Reference Range Interpretation Comments WBC (test code = See_Comment [Automated 3690-2) message] The sy stem which generated this result transmitted reference range : 4.30 - 11.10 10*3/?L. The reference range was not used to interpret this result as normal/abnormal . RBC (test code = See_Comment L [Automated 229-8) message] The sy stem which generated this [...] RDW-SD (test code = 47.3 fL 39.0-49.9 35455-7) RDW-CV (test code = 13.8 % 12.0-15.5 788-0) PLT (test code = See_Comment [Automated 777-3) message] The sy stem which generated this result transmitted reference range : 166 - 358 10*3/ ?L. The reference r josselyn was not used to interpret this result as normal/abnormal . MPV (test code = 8.8 fL 9.5-12.9 L 93361-0) NRBC/100 WBC (test See_Comment [Automat ed code = 1179114038) message] The system which generated this result transmitted reference range : 0.0 - 10.0 /100 WBCs. The refer ence range was not u sed to interpret th is result as normal/abnormal . NRBC x10^3 (test code <0.01 See_Comment [Auto mated = 4855391510) message] The s ystem which generated this result transmitted reference range : 10*3/?L. The reference range was not used to interpret this result as normal/abnormal . GRAN MAT (NEUT) % 82.4 % (test code = 770-8) IMM GRAN % (test code 0.80 % = 6421242152) LYMPH % (test code = 8.0 % 736-9) MONO % (test code = 5.1 % 5905-5) EOS % (test code = 2.9 % 713-8) BASO % (test code = 0.8 % 706-2) GRAN MAT x10^3(ANC) 6.26 10*3/uL 1.88-7.09 (test code = 4476151647) IMM GRAN x10^3 (test 0.06 10*3/uL 0.00-0.06 code = 9623080000) LYMPH x10^3 (test code 0.61 10*3/uL 1.32-3.29 L = 731-0) MONO x10^3 (test code 0.39 10*3/uL 0.33-0.92 = 742-7) EOS x10^3 (test code = 0.22 10*3/uL 0.03-0.39 711-2) BASO x10^3 (test code 0.06 10*3/uL 0.01-0.07 = 704-7) Lab Interpretation Abnormal (test code = 45979-2) [facility]
[2023-04-19] MEDS ORDERED: IPRATROPIUM BROM 0.5MG/2.5ML ONE ×2 (13:17→20:11)
[2023-04-19] MEDS ORDERED: LEVALBUTEROL 0.63 MG/3 ML NEB ONE (13:17)
[2023-04-19] MEDS ORDERED: METHYLPREDNISOLONE 125 MG INJ ONE (13:17)
[2023-04-19 13:51] LABS: Absolute Lymphocytes (CBC) 0.3 K/uL (0.7-4.9); Hematocrit 32.7 % (36.0-45.0); Lymphocytes % 3.3 % (15.3-44.8); MCV 78.5 fL (80-100); MPV 7.2 fL (7.6-11.3); Platelets 279 thou/uL (152-406); RBC Red Blood Cell Count 4.17 M/uL (3.86-4.86)
[2023-04-19 13:55] LABS: Protime INR 0.95
[2023-04-19 14:05] LABS: Albumin 3.6 g/dL (3.4-5.0); Bilirubin Total 0.5 mg/dL (0.2-1.0); Potassium 5.3 mEq/L (3.5-5.1); Protein, Total 8.5 g/dL (6.4-8.2)
--- NOTE | 2023-04-19 15:57 | ER ---
Nurse's Notes [facility] Name: Janie Erickson Age: 62 yrs Sex: Female : 1960 Arrival Date: 04/19/2023 Time: 12:36 Bed 8 Private MD: Diagnosis: COPD/ Chronic obstructive pulmonary disease with (acute) exacerbation;Dyspnea, unspecified;Hypoxemia Presentation: 04/19 12:46 Chief complaint: Patient states: complains of low O2 level , tank normally kept on 6 iw with level of 98. today had to raise the tank level to 8 . complains of general weakness for 3 days now . 12:46 Onset of symptoms was April 19, 2023. [facility] 12:53 Coronavirus screen: Client presents with at least one sign or symptom that may indicate iw coronavirus-19. Ebola Screen: Patient negative for fever greater than or equal to 101.5 degrees Fahrenheit, and additional compatible Ebola Virus Disease symptoms Patient denies exposure to infectious person. Patient denies travel to an Ebola-affected area in the 21 days before illness onset. No symptoms or risks identified at this time. Initial Sepsis Screen: Does the patient have a suspected source of infection?. Risk Assessment: Do you want to hurt yourself or someone else? Patient reports no desire to harm self or others. 12:53 Method Of Arrival: Wheelchair iw 12:54 Acuity: PAULINA 3 iw 12:57 Initial Sepsis Screen: Does the patient meet any 2 criteria? RR > 20 per min. HR > 90 iw bpm. Yes Does the patient have a suspected source of infection? Yes: Productive cough/pneumonia. Triage Assessment: 22:17 Respiratory: Onset: The symptoms/episode began/occurred 3 days ago, the patient has jw7 moderate shortness of breath. Historical: - Allergies: 12:54 codeine sulfate; iw 12:54 Robaxin; iw 12:54 Sulfa (Sulfonamide Antibiotics); iw 12:54 Ultram; iw - PMHx: 12:54 Chronic obstructive lung disease; Congestive heart failure; Congestive heart failure; iw diabetes mellitus; - PSHx: 12:54 trach; iw - Immunization history:: Adult Immunizations up to date. - Social history:: Smoking status: unknown. - Family history:: not pertinent. - Hospitalizations: : No recent hospitalization is reported. Screenin:43 [facility] ED Fall Risk Assessment (Adult) History of falling in the last 3 months, kc6 including since admission No falls in past 3 months (0 pts) Confusion or Disorientation No (0 pts) Intoxicated or Sedated No (0 pts) Impaired Gait No (0 pts) Mobility Assist Device Used No (0 pt) Altered Elimination No (0 pt) Score/Fall Risk Level 0 - 2 = Low Risk. Abuse screen: Denies threats or abuse. Denies injuries from another. Nutritional screening: No deficits noted. Tuberculosis screening: No symptoms or risk factors identified. Assessment: 13:00 General: Appears in no apparent distress. uncomfortable, Behavior is calm, cooperative, kc6 appropriate for age. Pain: Denies pain. Neuro: Level of Consciousness is awake, alert, obeys commands, Oriented to person, place, time, situation, Appropriate for age. Cardiovascular: Denies chest pain, Heart tones S1 S2 present Capillary refill < 3 seconds Rhythm is sinus tachycardia. Respiratory: Reports shortness of breath at rest on exertion Airway is patent Trachea midline Respiratory effort is even, Respiratory pattern is symmetrical, tachypnea Breath sounds are clear bilaterally. GI: No signs and/or symptoms were reported involving the gastrointestinal system. : No signs and/or symptoms were reported regarding the genitourinary system. EENT: No signs and/or symptoms were reported regarding the EENT system. Derm: No signs and/or symptoms reported regarding the dermatologic system. Skin is intact, is healthy with good turgor, Skin is pink, warm \\T\\ dry. Musculoskeletal: No signs and/or symptoms reported regarding the musculoskeletal system. Circulation, motion, and sensation intact. Capillary refill < 3 seconds, Range of motion: intact in all extremities. 13:05 Reassessment: assisted pt back into bed from bedside commode. pt mouths, "I can't kc6 breath." SPO2 89% on 8L. pts eyes appeared to roll back, responded to painful and verbal stimuli. O2 increased to 10L, SPO2 94%. 13:59 Reassessment: Patient appears in no apparent distress at this time. No changes from kc6 previously documented assessment. Patient and/or family updated on plan of care and expected duration. Pain level reassessed. Patient is alert, oriented x 3, equal unlabored respirations, skin warm/dry/pink. 14:50 Reassessment: Patient appears in no apparent distress at this time. No changes from kc6 previously documented assessment. Patient and/or family updated on plan of care and expected duration. Pain level reassessed. Patient is alert, oriented x 3, equal unlabored respirations, skin warm/dry/pink. 15:45 Reassessment: Patient appears in no apparent distress at this time. No changes from kc6 previously documented assessment. Patient and/or family updated on plan of care and expected duration. Pain level reassessed. Patient is alert, oriented x 3, equal unlabored respirations, skin warm/dry/pink. 16:45 Reassessment: Patient appears in no apparent distress at this time. No changes from kc6 previously documented assessment. Patient and/or family updated on plan of care and expected duration. Pain level reassessed. Patient is alert, oriented x 3, equal unlabored respirations, skin warm/dry/pink. 17:45 Reassessment: Patient appears in no apparent distress at this time. No changes from kc6 previously documented assessment. Patient and/or family updated on plan of care and expected duration. Pain level reassessed. Patient is alert, oriented x 3, equal unlabored respirations, skin warm/dry/pink. please see [facility] for further charting. 22:17 General: Report given to Bertha Henson RN . jw7 Vital Signs: 13:02 BP 160 / 105; Pulse 111; Resp 16; Pulse Ox 97% ; FiO2 8 %; iw 13:57 BP 185 / 97; Pulse 109; Resp 18 S; Pulse Ox 100% on home ventilator; kc6 14:50 BP 118 / 78; Pulse 96; Resp 18 S; Pulse Ox 98% 8 lpm ; kc6 15:47 BP 132 / 68; Pulse 91; Resp 19 S; Pulse Ox 97% 8 lpm ; kc6 17:03 BP 115 / 61; Pulse 98; Resp 18 S; Temp 97.8(O); Pulse Ox 94% on 6 lpm NC; kc6 18:12 BP 130 / 63; Pulse 111; Resp 20 S; Pulse Ox 98% 10 lpm ; kc6 ED Course: 12:45 Patient arrived in ED. im 12:45 Niles Pickering MD is Attending Physician. rn 12:53 Arm band placed on. iw 12:54 Triage completed. iw 12:58 Aby Cespedes, RN is Primary Nurse. kc6 13:43 Inserted saline lock: 20 gauge in left antecubital area, using aseptic technique. Blood kc6 collected. O2 via tracheostomy \\T\\ 10L. 13:44 Placed in gown. Bed in low position. Call light in reach. Side rails up X2. Adult w/ kc6 patient. Client placed on continuous cardiac and pulse oximetry monitoring. NIBP monitoring applied. surveillance monitor on. 15:04 Chest Single View XRAY In Process Unspecified. EDMS 15:56 Kevin Brewer is Hospitalizing Provider. rn 18:13 No provider procedures requiring assistance completed. Patient admitted, IV remains in kc6 place. 22:17 Provided Education on: need for admit. jw7 Administered Medications: 13:42 Drug: MethylPrednisoLONE IVP 125 mg IVP once Route: IVP; Site: left antecubital; kc6 15:37 Follow up: Response: No adverse reaction kc6 13:57 Drug: Levalbuterol Inhalation 1.25 mg Inhalation once Route: Inhalation; kc6 14:12 Follow up: Response: No adverse reaction kc6 13:57 Drug: Ipratropium Inhalation Aerosol 0.5 mg Inhalation once Route: Inhalation; kc6 14:13 Follow up: Response: No adverse reaction kc6 17:03 Drug: Rocephin IV 1 grams IV at calculated rate once; Given slow IV push per pharmacy kc6 instructions Route: IV; Rate: calculated rate; Site: left antecubital; 22:18 Follow up: Response: No adverse reaction; IV Status: Completed infusion; IV Intake: [id number] 17:03 Drug: Zithromax IVPB 500 mg IVPB once over 1 hrs; mix in 250 mL NS Route: IVPB; Infused kc6 Over: 1 hrs; Site: left antecubital; 22:18 Follow up: Response: No adverse reaction; IV Status: Completed infusion; IV Intake: jw7 250ml 19:51 Drug: Insulin Regular Human IVP 10 units IVP once {Co-Signature: jb4 (Otoniel Quintana RN).} Route: IVP; Site: right antecubital; 22:18 Follow up: Response: No adverse reaction jw7 Medication: 18:13 VIS not applicable for this client. kc6 Intake: 22:18 IV: 250ml; Total: 250ml. jw7 22:18 IV: 10ml; Total: 260ml. jw7 Outcome: 15:56 Decision to Hospitalize by Provider. rn 18:13 Admitted to ER Hold. Please see [facility] for further documentation. kc6 18:13 Condition: stable 18:13 Instructed on the need for admit, 23:02 Patient left the ED. jw7 Signatures: Dispatcher [employer] EDChristina Sargent RN RN iw Nieto, Roman, MD MD rn Waits, Jodi, RN RN jw7 Aby Cespedes RN RN kc6 Arlyn Aguilera James RN jb4 Corrections: (The following items were deleted from the chart) 15:49 13:00 Respiratory: Reports shortness of breath at rest on exertion Airway is patent kc6 Trachea midline Respiratory effort is even, Respiratory pattern is symmetrical, tachypnea Breath sounds are clear bilaterally. kc6 15:50 14:50 BP 118 / 78; Pulse 96bpm; Resp 18bpm; Spontaneous; Pulse Ox 98%; kc6 kc6
--- NOTE | 2023-04-19 15:57 | EDPHYS ---
Physician Documentation [facility] Name: Janie Erickson Age: 62 yrs Sex: Female : 1960 Arrival Date: 04/19/2023 Time: 12:36 Bed 8 Private MD: ED Physician Niles Pickering HPI: 04/19 13:19 This 62 yrs old Female presents to ER via Wheelchair with complaints of Shortness Of rn Breath. 13:19 The patient has shortness of breath at rest, with light activity. Onset: The rn symptoms/episode began/occurred 3 day(s) ago. Duration: The symptoms are continuous. The patient's shortness of breath is aggravated by light activity, is alleviated by application of supplemental oxygen. Associated signs and symptoms: Pertinent positives: non-productive cough, Pertinent negatives: chest pain, fever, hemoptysis. Severity of symptoms: At their worst the symptoms were moderate in the emergency department the symptoms are unchanged. The patient has experienced similar episodes in the past. Patient with history of COPD and tracheostomy, presents with shortness of breath, worse over the last 3 days, no fever. No fall or trauma. has increased her oxygen by 2 L with improvement of symptoms. Shortness of breath with exertion and light activity. No hemoptysis.. Historical: - Allergies: 12:54 codeine sulfate; iw 12:54 Robaxin; iw 12:54 Sulfa (Sulfonamide Antibiotics); iw 12:54 Ultram; iw - PMHx: 12:54 Chronic obstructive lung disease; Congestive heart failure; Congestive heart failure; iw diabetes mellitus; - PSHx: 12:54 trach; iw - Immunization history:: Adult Immunizations up to date. - Social history:: Smoking status: unknown. - Family history:: not pertinent. - Hospitalizations: : No recent hospitalization is reported. ROS: 13:19 Constitutional: Negative for fever, chills, and weight loss, Cardiovascular: Negative rn for chest pain, palpitations, and edema, Respiratory: Positive for cough and shortness of breath Abdomen/GI: Negative for abdominal pain, nausea, vomiting, diarrhea, and constipation, MS/Extremity: Negative for injury and deformity, Skin: Negative for injury, rash, and discoloration, Neuro: Negative for headache, weakness, numbness, tingling, and seizure, Exam: 13:19 Constitutional: This is a well developed, well nourished patient who is awake, alert, rn mild tachypnea Head/Face: Normocephalic, atraumatic. ENT: Moist mucous membranes, no stridor Cardiovascular: Tachycardic, regular no pulse deficits. Respiratory: Mild tachypnea, diminished breath sounds left base Abdomen/GI: Soft, non-tender Skin: Warm, dry MS/ Extremity: Pulses equal, no cyanosis Neuro: Awake and alert, GCS 15 16:14 ECG was reviewed by the Attending Physician. rn Vital Signs: 13:02 BP 160 / 105; Pulse 111; Resp 16; Pulse Ox 97% ; FiO2 8 %; iw 13:57 BP 185 / 97; Pulse 109; Resp 18 S; Pulse Ox 100% on home ventilator; kc6 14:50 BP 118 / 78; Pulse 96; Resp 18 S; Pulse Ox 98% 8 lpm ; kc6 15:47 BP 132 / 68; Pulse 91; Resp 19 S; Pulse Ox 97% 8 lpm ; kc6 17:03 BP 115 / 61; Pulse 98; Resp 18 S; Temp 97.8(O); Pulse Ox 94% on 6 lpm NC; kc6 18:12 BP 130 / 63; Pulse 111; Resp 20 S; Pulse Ox 98% 10 lpm ; kc6 MDM: 12:45 Patient medically screened. rn 15:54 Differential diagnosis: Anemia Anxiety Reaction Bronchitis Chronic Obstructive rn Pulmonary Disease Myocardial Infarction Pneumothorax Psychogenic pulmonary edema. Data reviewed: vital signs, nurses notes, lab test result(s), EKG, radiologic studies, plain films, and as a result, I will admit patient. Consideration of Admission/Observation Patient was admitted/placed on observation. Escalation of care including admission/observation considered. Counseling: I had a detailed discussion with the patient and/or guardian regarding the historical points, exam findings, and any diagnostic results supporting the discharge/admit diagnosis, lab results, radiology results, the need for further work-up and treatment in the hospital. Response to treatment: the patient's symptoms have mildly improved after treatment. ED course: Patient with increased oxygen requirement and severe dyspnea with very minimal movement. Became extremely dyspneic just moving to bedside commode per nurse. Will admit to hospitalist service for further care. 16:51 ED course: Nadeem Erickson, family, . rn 09/25 12:51 Order name: Blood Culture Adult (2) 04/19 12:51 Order name: CBC with Diff; Complete Time: 14:00 04/19 12:51 Order name: CMP; Complete Time: 14:08 04/19 12:51 Order name: Lactate w/ 2H reflex if indic.; Complete Time: 14:08 04/19 12:51 Order name: Protime (+inr); Complete Time: 14:00 04/19 12:51 Order name: Ptt, Activated; Complete Time: 14: 04/19 12:51 Order name: SARS-COV-2 RT PCR; Complete Time: 14:08 04/19 12:51 Order name: Flu; Complete Time: 14: 04/19 17:30 Order name: Magnesium; Complete Time: 21:33 [facility] 04/19 17:30 Order name: Phosphorus; Complete Time: 21:33 [facility] 04/19 17:30 Order name: Urinalysis w/ reflexes [facility] 04/19 17:30 Order name: Basic Metabolic Panel [facility] 04/19 17:30 Order name: Basic Metabolic Panel [facility] 04/19 17:30 Order name: CBC with Automated Diff [facility] 04/19 17:30 Order name: CBC with Automated Diff [facility] 04/19 18:55 Order name: BMP la1 04/19 19:02 Order name: Glucose, Ancillary Testing; Complete Time: 21:33 [facility] 04/19 20:01 Order name: Glucose, Ancillary Testing; Complete Time: 21:33 [facility] 04/19 20:13 Order name: Basic Metabolic Panel; Complete Time: 21:33 [facility] 04/19 21:29 Order name: Glucose, Ancillary Testing; Complete Time: 21:33 [facility] 04/19 22:03 Order name: Basic Metabolic Panel [facility] 04/19 12:51 Order name: Chest Single View XRAY; Complete Time: 16:34 04/19 17:32 Order name: Thorax Wo Con; Complete Time: 21:33 [facility] 04/19 12:51 Order name: EKG; Complete Time: 12:52 04/19 17:30 Order name: 60g Consistent Carbohydrate (ADA 1800/2000) EDNJ 04/19 12:51 Order name: Accucheck; Complete Time: 13:57 04/19 12:51 Order name: Cardiac monitoring; Complete Time: 13:41 rn 04/19 12:51 Order name: EKG - Nurse/Tech; Complete Time: 13: rn 04/19 12:51 Order name: IV Saline Lock - Large Bore; Complete Time: 13:41 rn 04/19 12:51 Order name: Labs collected and sent; Complete Time: 13:42 rn 04/19 12:51 Order name: O2 Per Protocol; Complete Time: 13: rn 04/19 12:51 Order name: O2 Sat Monitoring; Complete Time: 13: rn 04/19 12:51 Order name: Vital Signs; Complete Time: : rn EC:14 Rate is 111 beats/min. Rhythm is regular. QRS [place] is Normal. [place] interval is normal. rn QRS interval is normal. QT interval is normal. No Q waves. T waves are Normal. No ST changes noted. Clinical impression: NSR w/ Non-specific ST/T Changes. Interpreted by me. Reviewed by me. Administered Medications: 13:42 Drug: MethylPrednisoLONE IVP 125 mg IVP once Route: IVP; Site: left antecubital; kc6 15:37 Follow up: Response: No adverse reaction kc6 13:57 Drug: Levalbuterol Inhalation 1.25 mg Inhalation once Route: Inhalation; kc6 14:12 Follow up: Response: No adverse reaction kc6 13:57 Drug: Ipratropium Inhalation Aerosol 0.5 mg Inhalation once Route: Inhalation; kc6 14:13 Follow up: Response: No adverse reaction kc6 17:03 Drug: Rocephin IV 1 grams IV at calculated rate once; Given slow IV push per pharmacy kc6 instructions Route: IV; Rate: calculated rate; Site: left antecubital; 22:18 Follow up: Response: No adverse reaction; IV Status: Completed infusion; IV Intake: [id number] 17:03 Drug: Zithromax IVPB 500 mg IVPB once over 1 hrs; mix in 250 mL NS Route: IVPB; Infused kc6 Over: 1 hrs; Site: left antecubital; 22:18 Follow up: Response: No adverse reaction; IV Status: Completed infusion; IV Intake: jw7 250ml 19:51 Drug: Insulin Regular Human IVP 10 units IVP once {Co-Signature: jb4 (Otoniel Quintana7 RN).} Route: IVP; Site: right antecubital; 22:18 Follow up: Response: No adverse reaction jw7 Disposition Summary: 04/19/23 15:56 Hospitalization Ordered Notes: Hospitalization Status: Inpatient Admission rn Provider: Kevin Brewer rn Condition: Stable rn Problem: an acute exacerbation rn Symptoms: have improved rn Bed/Room Type: Standard rn Location: Intensive Care Unit(04/19/23 21:05) mw Room Assignment: 7-(04/19/23 21:05) Diagnosis - COPD/ Chronic obstructive pulmonary disease with (acute) exacerbation rn - Dyspnea, unspecified rn - Hypoxemia rn Forms: - Medication Reconciliation Form rn - SBAR form rn - Leadership Thank You Letter rn Signatures: Dispatcher [employer] EDJohana Romero RN Christina Ruff RN Niles Rockwell MD MD rn Attema, Lee, YARN PREPARATION SUPERVISOR-C YARN PREPARATION SUPERVISOR-Cla1 Sherri Hoover RN RN jw7 Aby Cespedes RN RN kc6 Otoniel Quintana RN jb4 Corrections: (The following items were deleted from the chart) 20:35 15:56 rn mw 21:05 15:56 Telemetry/MedSurg (Inpatient) rn mw 21:05 20:35 408 mw mw
--- NOTE | 2023-04-19 16:33 | RAD REPORT ---
EXAM DESCRIPTION: RADChest Single View04/19/2023 3:02 pm CLINICAL HISTORY: COUGH COMPARISON: Chest Single View dated 01/01/2023; Chest Single View dated 12/28/2022; Chest Single View da al[place] 12/27/2022; Abdomen 1 View (KUB) dated 12/24/2022; Thorax Wo Con dated 01/01/2023 TECHNIQUE: Portable AP view of the chest. FINDINGS: Tracheostomy tube in place. Small patchy right basilar airspace opacities may reflect resi dual atelectasis as seen on the most recent CT. Superimposed infection cannot be entirely excluded. No pneumothorax or effusion. The cardiomediastinal contours are unremarkable. IMPRESSION: Right basilar patchy airspace opacities, probably atelectatic, and stable since the prio r CT. Superimposed infection cannot be entirely excluded.
[2023-04-19] MEDS ORDERED: AZITHROMYCIN 500 MG INJ IVPB ONE (17:05)
[2023-04-19] MEDS ORDERED: CEFTRIAXONE 1000 MG/VIAL ONE (17:05)
[2023-04-19] MEDS ORDERED: NA CHLORIDE 0.9% 250 ML ONE (17:05)
[2023-04-19] MEDS ORDERED: ACETAMINOPHEN 325 MG TABLET PO PRN (17:25)
--- NOTE | 2023-04-19 17:30 | P.HP ---
Certification for Inpatient Patient admitted to: Inpatient With expected LOS: >2 Midnights Patient will require the following post-hospital care: None Practitioner: I am a practitioner with admitting privileges, knowledge of patient current condition, hospital course, and medical plan of care. Services: Services provided to patient in accordance with Admission requirements found in Title 42 Section 412.3 of the Code of Federal Regulations Patient History Date of Service: 04/19/23 Reason for admission: SOB History of Present Illness: Patient is a 62-year-old female with a past medical history significant for severe COPD, tracheostomy dependence, chronic hypercapnic respiratory failure, chronic diastolic CHF, DM 2 who presents with complaint of shortness of breath that has been ongoing for the past 3 days. Patient reported associated signs and symptoms of nausea and cough. Patient denies any other signs or symptoms. Symptoms are aggravated by exertion and relieved by nothing. Patient decided to present to the hospital due to worsening symptoms. Allergies codeine Allergy (Verified 09/27/22 23:31) Itching methocarbamol [From Robaxin] Allergy (Verified 10/20/22 06:11) Nausea/Vomiting Sulfa (Sulfonamide Antibiotics) Allergy (Verified 09/27/22 23:31) Itching/Hives/Rash tramadol [From Ultram] Adverse Reaction (Verified 09/27/22 23:31) Nausea/Vomiting Home Medications: Cyclobenzaprine [Flexeril*] 10 mg PO TID 05/01/21 Hydrocodone Bit/Acetaminophen [Hydrocodon-Acetaminophn 10-325] 1 tab PO Q6H PRN 05/01/21 Ipratropium/Albuterol Sulfate [Iprat-Albut 0.5-3(2.5) mg/3 ml] 3 ml NEB QID 05/01/21 Levothyroxine [Synthroid*] 0.05 mg PO DAILY 05/01/21 Metformin HCl 500 mg PO DAILY 05/01/21 PARoxetine HCL [Paroxetine HCl] 40 mg PO DAILY 05/01/21 Pregabalin 300 mg PO BID 05/01/21 Quetiapine [Seroquel*] 50 mg PO BEDTIME 05/01/21 Spironolactone 25 mg PO DAILY 05/01/21 Montelukast Sodium 10 mg PO DAILY 10/20/22 Rosuvastatin [Crestor*] 10 mg PO BEDTIME 10/20/22 Insulin Detemir [Levemir] 60 units SQ DAILY 12/24/22 Ondansetron [Ondansetron Odt] 8 mg PO Q8H PRN 12/24/22 Albuterol Neb [Proventil 0.083% Neb Soln] 2.5 mg NEB [id number] PRN #120 amp 12/28/22 Ipratropium Neb [Atrovent*] 0.5 mg NEB [id number] #120 amp 12/28/22 Roflumilast [Daliresp*] 500 mcg PO DAILY 12/28/22 acetaZOLAMIDE [Diamox*] 250 mg PO DAILY #30 tab 12/28/22 predniSONE [Deltasone*] 10 mg PO DAILY #14 tab 12/28/22 Fluticasone/Umeclidin/Vilanter [Trelegy Ellipta 200-62.5-25] 1 each IH BID 30 Days #1 inh 01/03/23 levoFLOXacin [Levaquin] 750 mg PO DAILY 5 Days #5 tab 01/03/23 - Past Medical/Surgical History Diabetic: Yes -: COPD -: Chronic diastolic congestive heart failure -: Insulin-dependent diabetes -: Home trach/vent 2/2 chronic hypercapnic respiratory failure -: Hypothyroidism -: Hyperlipidemia -: trach -: -: Hysterectomy -: Left knee surgery Psychosocial/ Personal History: Patient lives at home with family - Family History Father -: Cancer Brother -: Diabetes - Social History Smoking Status: Former smoker Alcohol use: No CD- Drugs: No Caffeine use: Yes Place of Residence: Home Review of Systems General: Unremarkable Eyes: Unremarkable ENT: Unremarkable Respiratory: Cough, Shortness of Breath Cardiovascular: Unremarkable Gastrointestinal: Nausea Genitourinary: Unremarkable Musculoskeletal: Unremarkable Integumentary: Unremarkable Neurological: Unremarkable Lymphatics: Unremarkable Physical Examination - Physical Exam General: Alert, In no apparent distress, Oriented x3, Cooperative HEENT: Atraumatic, PERRLA, Mucous membr. moist/pink, EOMI, Sclerae nonicteric Neck: Supple, 2+ carotid pulse no bruit, No LAD, Without JVD or thyroid abnormality Respiratory: Diminished Cardiovascular: No edema, Regular rate/rhythm, Normal S1 S2 Capillary refill: <2 Seconds Gastrointestinal: Normal bowel sounds, No tenderness Musculoskeletal: No clubbing, No swelling, No tenderness Integumentary: No rashes, No significant lesion Neurological: Normal speech, Normal tone, Normal affect Lymphatics: No axilla or inguinal lymphadenopathy - Studies Laboratory Data (last 24 hrs) 04/19/23 04/19/23 04/19/23 13:36 13:36 13:36 WBC 9.50 Hgb 10.4 L Hct 32.7 L Plt Count 279 PT 10.5 INR 0.95 APTT 36.2 Sodium 133 L Potassium 5.3 H BUN 12 Creatinine 1.33 H Glucose 542 H* Total Bilirubin 0.5 AST 11 L ALT 19 Alkaline Phosphatase 178 H Microbiology Data (last 24 hrs): 04/19/23 13:26 Nasopharnyx Influenza Type A Antigen Screen - Final 04/19/23 13:26 Nasopharnyx Influenza Type B Antigen Screen - Final Assessment and Plan - Plan --Acute on chronic respiratory failure with hypoxia. Patient is trach dependent. Pulmonology consulted. Patient placed on Steroids, nebulizer treatment with albuterol and Atrovent. Further management per fine unhairer. --Acute on chronic COPD exacerbation. Continue current treatment regimen. --Chronic systolic CHF. Stable. Continue home medication. Daily weight and strict I/O. --DM2 with hyperglycemia. BS monitoring with sliding scale insulin, pre-meal insulin and Lantus. --Anemia. H and H stable. Will continue to monitor hemoglobin and transfuse if lest than 7.0 --Hypothyroidism. Continue Synthroid --HLD. Continue statin --Hyperkalemia. Kayexalate x1 dose given. We will continue to monitor potassium levels. --DVT prophylaxis with Lovenox subQ. Discharge Plan: Home Plan to discharge in: Greater than 2 days - Advance Directives Does patient have a Living Will: No Does patient have a Durable POA for Healthcare: Yes - Code Status/Comfort Care Code Status Assessed: Yes Physician Review: Patient Assessed, Agree with Above Assessment and Plan Critical Care: No
[2023-04-19 19:08] LABS: Magnesium 2.1 mg/dL (1.6-2.4)
[2023-04-19] MEDS ORDERED: D50W 25 GM/50 ML SYRINGE IV PRN (19:30)
[2023-04-19] MEDS ORDERED: GLUCAGON 1 MG/VIAL IM PRN (19:30)
[2023-04-19] MEDS ORDERED: D10W 125 ML IV PRN (19:35)
[2023-04-19] MEDS: INSULIN LISPRO 100 UNIT/1 ML SQ SCH (19:45)
[2023-04-19] MEDS ORDERED: INSULIN GLARGINE 100 UNIT/ML SQ ONE (19:51)
[2023-04-19] MEDS ORDERED: INSULIN -REGULAR HUMAN 50 UNIT/0.5 ML ML ONE ×2 (19:52→21:50)
[2023-04-19] MEDS: INSULIN GLARGINE 100 UNIT/ML SQ SCH (19:56)
[2023-04-19] MEDS: ENOXAPARIN 40 MG/0.4 ML SQ SCH (20:00)
[2023-04-19] MEDS ORDERED: HOME MED 1 EA UNK (Insulin Detemir [Levemir] 100 UNIT/1 ML Ml) SQ SCH (20:00)
[2023-04-19] MEDS: METHYLPREDNISOLONE 40 MG INJ IV SCH (20:00)
[2023-04-19] MEDS ORDERED: ALBUTEROL 2.5 MG/3 ML NEB SOL ONE (20:10)
[2023-04-19 20:13] LABS: Potassium 5.4 mEq/L (3.5-5.1)
[2023-04-19] MEDS: ALBUTEROL 2.5 MG/3 ML NEB SOL NEB SCH (20:15)
[2023-04-19] MEDS: IPRATROPIUM BROM 0.5MG/2.5ML NEB SCH (20:15)
--- NOTE | 2023-04-19 20:50 | RAD REPORT ---
EXAM DESCRIPTION: CT - Thorax Wo Con - 04/19/2023 8:16 pm CLINICAL HISTORY: SOB COMPARISON: Thorax Wo Con dated 01/01/2023; Thorax Wo Con dated 12/22/2022; Thorax Wo Con dated 12/08/19 23; Chest For Pe Angio dated 11/22/2022 TECHNIQUE: Axial thin cut images of the chest were obtained without IV contrast. Multiplanar reforma ts were generated and reviewed. All CT scans are performed using dose optimization technique as appropriate and may include automated exposure control or mA/KV adjustment according to patient size. FINDINGS: Motion artifact somewhat limits evaluation. No mass or infiltrate in the lung parenchyma Segmental right middle lobe opacification with volume loss, favored to represent atelectasis. Left up per lobe subpleural calcific nodule is stable suggestive of a granuloma. Since the prior exam, there is progressive narrowing of the distal trachea and right more than left m ain bronchus in the AP dimension. Tracheostomy tube is unchanged in position. No pleural thickening or pleural effusion. No pneumothorax. No abnormal mediastinal or hilar masses or lymphadenopathy seen. No significant aortic or pulmonary a rtery findings. Assessment is limited in the absence of IV contrast. No chest wall mass or abnormal axillary lymphadenopathy. Evaluation of the solid abdominal structures reveals no suspicious findings. IMPRESSION: Progressive narrowing of the distal trachea and right more than left main bronchus since the prior exam. Findings raise concern for tracheomalacia. Mildly progressive right middle lobe segmental opacification with volume loss most suggestive of atel ectasis.
[2023-04-19] MEDS: INSULIN -REGULAR HUMAN 50 UNIT/0.5 ML ML SQ SCH (21:00)
[2023-04-19] MEDS ORDERED: SOD POLYSTYREN SUL 15 GM/60 ML UCUP PO ONE (21:41)
[2023-04-19] MEDS ORDERED: METHYLPREDNISOLONE 40 MG INJ ONE (21:49)
[2023-04-19] MEDS ORDERED: ENOXAPARIN 40 MG/0.4 ML SQ ONE (21:50)
[2023-04-19 22:02] LABS: Potassium 4.7 mEq/L (3.5-5.1)
[2023-04-19] MEDS: HYDROCODONE/APAP 5/325 MG TAB PO PRN (23:22)
[2023-04-20] MEDS: METHYLPREDNISOLONE 40 MG INJ IV SCH ×3 (00:38→20:44)
[2023-04-20] MEDS: INSULIN -REGULAR HUMAN 50 UNIT/0.5 ML ML SQ SCH ×5 (00:40→20:44)
[2023-04-20] MEDS: IPRATROPIUM BROM 0.5MG/2.5ML NEB SCH ×4 (02:00→20:05)
[2023-04-20] MEDS: ALBUTEROL 2.5 MG/3 ML NEB SOL NEB SCH ×4 (02:00→20:05)
[2023-04-20 05:34] LABS: Absolute Lymphocytes (CBC) 0.3 K/uL (0.7-4.9); Lymphocytes % 4.3 % (15.3-44.8); MCV 76.9 fL (80-100); MPV 7.3 fL (7.6-11.3); Platelets 273 thou/uL (152-406); RBC Red Blood Cell Count 4.03 M/uL (3.86-4.86)
[2023-04-20 05:44] LABS: Potassium 4.4 mEq/L (3.5-5.1)
--- NOTE | 2023-04-20 06:56 | P.PN ---
Date of Service: 04/20/23 Subjective: Feeling a little better today switched off her home vent to hospital vent d/t leak in tubing no acute events overnight anxious ROS: 10 point ROS as noted above, otherwise negative Physical Exam: GEN: Alert, oriented, NAD HEENT: Normal conjunctiva, sclera anicteric CV: Sinus Tachycardic, no edema Pulm: Nonlabored respirations on 6L via trach collar, diminished at bases b/l ABD: Soft, nontender, nondistended MSK: No joint tenderness Integumentary: No rashes Neuro: Normal speech, normal affect vitals reviewed Problem List: Acute on chronic respiratory failure with hypoxia. Acute on chronic COPD exacerbation -trach dependent. Chronic systolic CHF IDDM2 with hyperglycemia. Microcytic anemia Hypothyroidism Hyperlipidemia Hyperkalemia Anxiety Acute on chronic respiratory failure with hypoxia. Acute on chronic COPD exacerbation -trach dependent. CT chest (04/19): Progressive narrowing of the distal trachea and right more than left main bronchus. Mildly progressive right middle lobe segmental opacification switched to hospital vent d/t leak in tubing on trach collar - wean oxygen as tolerated Pulm consulted continue steroids, nebs restart home seroquel, spironolactone, diamox, daliresp check ABG Chronic systolic CHF Continue home medications. Daily weight and strict I/O. IDDM2 with hyperglycemia. reports missing a day of her home dose sliding scale insulin, pre-meal insulin and Lantus. improving Microcytic anemia. H&H stable. Hypothyroidism. Continue Synthroid Hyperlipidemia. Continue statin Hyperkalemia. monitor potassium levels. replete as needed VTE: Lovenox Code: Full Dispo: Home
--- NOTE | 2023-04-20 08:36 | P.CNS ---
Date of Consult: 04/20/23 Reason for Consult: Respiratory failure COPD exacerbation Chief Complaint: SOB History of Present Illness: Patient is 62 years of age with a history of severe COPD status post tracheostomy current exacerbations into the hospital complaining of worsening dyspnea for the past 3 days and there is a tear in her ventilator tubing he has to be a little tachypneic Allergies codeine Allergy (Verified 09/27/22 23:31) Itching methocarbamol [From Robaxin] Allergy (Verified 10/20/22 06:11) Nausea/Vomiting Sulfa (Sulfonamide Antibiotics) Allergy (Verified 09/27/22 23:31) Itching/Hives/Rash tramadol [From Ultram] Adverse Reaction (Verified 09/27/22 23:31) Nausea/Vomiting Home Medications: Cyclobenzaprine [Flexeril*] 10 mg PO TID 05/01/21 Hydrocodone Bit/Acetaminophen [Hydrocodon-Acetaminophn 10-325] 1 tab PO Q6H PRN 05/01/21 Ipratropium/Albuterol Sulfate [Iprat-Albut 0.5-3(2.5) mg/3 ml] 3 ml NEB QID 05/01/21 Levothyroxine [Synthroid*] 0.05 mg PO DAILY 05/01/21 Metformin HCl 500 mg PO DAILY 05/01/21 PARoxetine HCL [Paroxetine HCl] 40 mg PO DAILY 05/01/21 Pregabalin 300 mg PO BID 05/01/21 Quetiapine [Seroquel*] 50 mg PO BEDTIME 05/01/21 Spironolactone 25 mg PO DAILY 05/01/21 Montelukast Sodium 10 mg PO DAILY 10/20/22 Rosuvastatin [Crestor*] 10 mg PO BEDTIME 10/20/22 Insulin Detemir [Levemir] 60 units SQ DAILY 12/24/22 Ondansetron [Ondansetron Odt] 8 mg PO Q8H PRN 12/24/22 Albuterol Neb [Proventil 0.083% Neb Soln] 2.5 mg NEB [id number] PRN #120 amp 12/28/22 Ipratropium Neb [Atrovent*] 0.5 mg NEB [id number] #120 amp 12/28/22 Roflumilast [Daliresp*] 500 mcg PO DAILY 12/28/22 acetaZOLAMIDE [Diamox*] 250 mg PO DAILY #30 tab 12/28/22 Fluticasone/Umeclidin/Vilanter [Trelegy Ellipta 200-62.5-25] 1 each IH BID 30 Days #1 inh 01/03/23 Furosemide 20 mg PO DAILYPRN PRN 04/20/23 Hydroxyzine HCl [Atarax] 10 mg PO TIDP PRN 04/20/23 Iron/FA/Vit B-Com W/C [Hemocyte Plus*] 1 tab PO BEDTIME 04/20/23 Sennosides/Docusate Sodium [Senna Plus 8.6-50 mg Tablet] 1 tab PO BEDTIME 04/20/23 - Past Medical/Surgical History Diabetic: Yes -: COPD -: Chronic diastolic congestive heart failure -: Insulin-dependent diabetes -: Home trach/vent 2/2 chronic hypercapnic respiratory failure -: Hypothyroidism -: Hyperlipidemia -: trach -: -: Hysterectomy -: Left knee surgery Psychosocial/ Personal History: Patient lives at home with family - Family History Father Medical History: Cancer Brother Medical History: Diabetes - Social History Smoking Status: Unknown if ever smoked Alcohol use: No CD- Drugs: No Caffeine use: Yes Place of Residence: Home Review of Systems is unable to be obtained Physical Examination Temp Pulse Resp BP Pulse Ox 98.1 F 112 H 20 102/73 97 04/20/23 04:00 04/20/23 06:00 04/20/23 06:00 04/20/23 06:00 04/20/23 06:00 General: Moderate distress Respiratory: Clear to auscultation bilaterally, Diminished Cardiovascular: Regular rate/rhythm, Edema Gastrointestinal: Normal bowel sounds, Soft and benign Laboratory Data (last 24 hrs) 04/19/23 04/19/23 04/19/23 13:36 13:36 13:36 WBC 9.50 Hgb 10.4 L Hct 32.7 L Plt Count 279 PT 10.5 INR 0.95 APTT 36.2 Sodium 133 L Potassium 5.3 H BUN 12 Creatinine 1.33 H Glucose 542 H* Total Bilirubin 0.5 AST 11 L ALT 19 Alkaline Phosphatase 178 H - Problems (1) Acute and chronic respiratory failure Current Visit: No Status: Acute Plan: Patient is 62 years of age with has COPD has a trach recurrent frequent admissions for COPD exacerbation 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
[2023-04-20] MEDS: ASPIRIN 81 MG CHEWABLE TABLET PO SCH (08:49)
[2023-04-20] MEDS: ENOXAPARIN 40 MG/0.4 ML SQ SCH (08:49)
[2023-04-20] MEDS ORDERED: levoFLOXacin 750 MG TAB PO SCH (09:00)
[2023-04-20] MEDS: INSULIN GLARGINE 100 UNIT/ML SQ SCH (09:00)
[2023-04-20] MEDS: PARoxetine HCL 10 MG TAB PO SCH ×2 (09:26→09:32)
[2023-04-20] MEDS: ROFLUMILAST 500 MCG TABLET PO SCH (09:26)
[2023-04-20] MEDS: SPIRONOLACTONE 25 MG TABLET PO SCH (09:32)
[2023-04-20] MEDS: acetaZOLAMIDE 250 MG TAB PO SCH (09:33)
[2023-04-20] MEDS: HYDROCODONE/APAP 5/325 MG TAB PO PRN ×2 (09:35→20:45)
[2023-04-20] MEDS ORDERED: DEXMEDETOMIDINE HCL 200 MCG in NA CHLORIDE 0.9% 98 ML IV SCH (10:00)
[2023-04-20 10:31] LABS: Platelet Estimate ADEQ; Platelets, Giant PRESENT; White Blood Cell Scan OK (OK)
[2023-04-20 10:32] LABS: Anisocytosis 1+; Blood Morphology Comment NOTED (NOT SEEN)
[2023-04-20] MEDS: MIDAZOLAM HCL 2 MG/2 ML INJ IV PRN ×3 (10:46→20:44)
[2023-04-20] MEDS: INSULIN LISPRO 100 UNIT/1 ML SQ SCH ×3 (10:50→17:00)
--- NOTE | 2023-04-20 13:04 | EKG ---
Test Date: 2023-04-19 Test Time: 13:50:08 Radio Board Operator Announcer: K[facility] MEASUREMENT RESULTS: Intervals: Rate: 111 IN: 186 QRSD: 74 QT: 342 QTc: 465 [place]: P: 78 IN: 186 QRS: 79 T: 78 INTERPRETIVE STATEMENTS: Sinus tachycardia Nonspecific ST abnormality Abnormal ECG Compared to ECG 01/01/2023 00:17:16 ST (T wave) deviation now present Electronically Signed On 04-20-23 13:02:06 CDT by Tuan Wise
[2023-04-20 13:16] LABS: Arterial Blood Carboxyhemoglob 1.1 % (0-1.5); Blood Gas Oxyhemoglobin 95.5 % (94-97); Blood O2 Saturation 97.4 % (92-98.5)
[2023-04-20] MEDS: ONDANSETRON 4 MG/2 ML VIAL IV PRN (16:25)
[2023-04-20] MEDS: DEXMEDETOMIDINE HCL 1,000 MCG in NA CHLORIDE 0.9% 490 ML IV SCH (16:45)
[2023-04-20 17:34] LABS: Arterial Blood Carboxyhemoglob 1.6 % (0-1.5); Blood O2 Saturation 91.5 % (92-98.5)
[2023-04-20] MEDS: QUETIAPINE 25 MG TAB PO SCH (20:45)
[2023-04-21] MEDS: IPRATROPIUM BROM 0.5MG/2.5ML NEB SCH ×4 (01:00→20:10)
[2023-04-21] MEDS: ALBUTEROL 2.5 MG/3 ML NEB SOL NEB SCH ×4 (01:00→20:10)
[2023-04-21] MEDS: HYDROCODONE/APAP 5/325 MG TAB PO PRN ×2 (02:37→16:02)
[2023-04-21] MEDS: DEXMEDETOMIDINE HCL 1,000 MCG in NA CHLORIDE 0.9% 490 ML IV SCH (02:38)
[2023-04-21] MEDS: MIDAZOLAM HCL 2 MG/2 ML INJ IV PRN ×4 (03:39→22:00)
[2023-04-21 05:27] LABS: Specific Gravity 1.025 (1.005-1.030); Urine Bacteria None Seen /HPF (<20); Urine Bilirubin NEGATIVE (Negative); Urine Blood Negative (Negative); Urine Clarity Extremely Turbid (Clear); Urine Color Light-Yellow (Yellow); Urine Glucose 4+ (Over) (Negative); Urine Protein 2+ (Negative); Urine RBC <5 /HPF (None Seen); Urine Urobilinogen Normal (Normal); Urine pH 8.5 (5.0-7.0)
[2023-04-21 05:27] LABS: Magnesium 2.2 mg/dL (1.6-2.4); Potassium 3.8 mEq/L (3.5-5.1)
[2023-04-21] MEDS: ONDANSETRON 4 MG/2 ML VIAL IV PRN (07:25)
--- NOTE | 2023-04-21 08:08 | P.PN ---
Subjective Date of Service: 04/21/23 Chief Complaint: Respiratory failure possible malfunction of home ventilator Subjective: Improving (Patient is doing better today still agitated on a Precedex drip eating review of home ventilator) Review of Systems General: Weakness Respiratory: Shortness of Breath Physical Examination - Vital Signs Temperature: 97.4 F Blood Pressure: 140/85 Pulse: 62 Respirations: 22 Pulse Ox (%): 99 - Physical Exam General: Alert, Mild distress Respiratory: Clear to auscultation bilaterally, Diminished, Expiratory wheezes Cardiovascular: No edema, Regular rate/rhythm, Normal S1 S2 Gastrointestinal: Normal bowel sounds, Soft and benign Assessment And Plan - Current Problems (Diagnosis) (1) Acute and chronic respiratory failure Current Visit: No Status: Acute Plan: Patient is 62 years of age admitted with respiratory failure possible malfunctioning of the home ventilator she appears to be much better on the hospital ventilator patient chest CT scan shows possible tracheomalacia addition she may have right middle lobe atelectasis or pneumonia his blood sugars are still elevated And he has improved ordered some sputum cultures we will try some chest percussion plan for some chest percussion have added cefepime May need to evaluate her bronchial tree with bronchoscopy Qualifiers: Respiratory failure complication: hypoxia and hypercapnia Qualified Code(s): J96.21 - Acute and chronic respiratory failure with hypoxia; J96.22 - Acute and chronic respiratory failure with hypercapnia (2) Hyperglycemia Current Visit: Yes Status: Acute Plan: Patient's blood sugars are very high will need insulin need to better control her blood sugar Physician Review: Patient Assessed, Agree with Above Assessment and Plan
[2023-04-21] MEDS: INSULIN LISPRO 100 UNIT/1 ML SQ SCH ×3 (08:25→16:53)
[2023-04-21] MEDS: INSULIN -REGULAR HUMAN 50 UNIT/0.5 ML ML SQ SCH ×4 (08:26→21:00)
[2023-04-21] MEDS: ENOXAPARIN 40 MG/0.4 ML SQ SCH (08:26)
[2023-04-21] MEDS: SPIRONOLACTONE 25 MG TABLET PO SCH (08:27)
[2023-04-21] MEDS: predniSONE 20 MG TAB PO SCH ×2 (08:27→21:16)
[2023-04-21] MEDS: ROFLUMILAST 500 MCG TABLET PO SCH (08:27)
[2023-04-21] MEDS: ASPIRIN 81 MG CHEWABLE TABLET PO SCH (08:27)
[2023-04-21] MEDS: PARoxetine HCL 10 MG TAB PO SCH (08:28)
[2023-04-21] MEDS: CEFEPIME 1 GM in NA CHLORIDE 0.9% 100 ML IV SCH ×2 (08:28→21:15)
[2023-04-21] MEDS: acetaZOLAMIDE 250 MG TAB PO SCH (08:28)
[2023-04-21] MEDS: PANTOPRAZOLE 40MG TABLET PO SCH ×2 (08:32→16:52)
[2023-04-21] MEDS: INSULIN GLARGINE 100 UNIT/ML SQ SCH (09:56)
[2023-04-21] MEDS ORDERED: propofoL 500 MG/50 ML ML IV PRN (11:19)
[2023-04-21] MEDS: propofoL 1,000 MG/100 ML VIAL IV SCH ×3 (11:26→23:37)
[2023-04-21 12:43] LABS: Arterial Blood Carboxyhemoglob 1.4 % (0-1.5); Blood O2 Saturation 95.4 % (92-98.5)
[2023-04-21] MEDS: QUETIAPINE 25 MG TAB PO SCH (21:18)
[2023-04-22] MEDS: ALBUTEROL 2.5 MG/3 ML NEB SOL NEB SCH ×4 (00:30→20:00)
[2023-04-22] MEDS: IPRATROPIUM BROM 0.5MG/2.5ML NEB SCH ×4 (00:30→20:00)
[2023-04-22] MEDS: MIDAZOLAM HCL 2 MG/2 ML INJ IV PRN ×3 (02:10→20:38)
[2023-04-22] MEDS: HYDROCODONE/APAP 5/325 MG TAB PO PRN (04:18)
[2023-04-22] MEDS: propofoL 1,000 MG/100 ML VIAL IV SCH ×5 (04:21→23:26)
[2023-04-22 04:57] LABS: Absolute Lymphocytes (CBC) 0.4 K/uL (0.7-4.9); Lymphocytes % 4.2 % (15.3-44.8); MCV 77.1 fL (80-100); Platelets 273 thou/uL (152-406); RBC Red Blood Cell Count 3.88 M/uL (3.86-4.86)
[2023-04-22 05:14] LABS: Magnesium 2.3 mg/dL (1.6-2.4); Phosphorus 2.6 mg/dL (2.5-4.9); Potassium 3.4 mEq/L (3.5-5.1)
[2023-04-22 05:47] LABS: Arterial Blood Carboxyhemoglob 1.5 % (0-1.5); Blood Gas Oxyhemoglobin 93.6 % (94-97)
[2023-04-22] MEDS: SPIRONOLACTONE 25 MG TABLET PO SCH (08:26)
[2023-04-22] MEDS: ROFLUMILAST 500 MCG TABLET PO SCH (08:26)
[2023-04-22] MEDS: ASPIRIN 81 MG CHEWABLE TABLET PO SCH ×2 (08:26→08:27)
[2023-04-22] MEDS: INSULIN -REGULAR HUMAN 50 UNIT/0.5 ML ML SQ SCH ×4 (08:26→21:00)
[2023-04-22] MEDS: PANTOPRAZOLE 40MG TABLET PO SCH ×2 (08:27→17:18)
[2023-04-22] MEDS: predniSONE 20 MG TAB PO SCH ×2 (08:27→20:00)
[2023-04-22] MEDS: ENOXAPARIN 40 MG/0.4 ML SQ SCH (08:27)
[2023-04-22] MEDS: CEFEPIME 1 GM in NA CHLORIDE 0.9% 100 ML IV SCH (08:27)
[2023-04-22] MEDS: acetaZOLAMIDE 250 MG TAB PO SCH (08:27)
[2023-04-22] MEDS: INSULIN LISPRO 100 UNIT/1 ML SQ SCH ×3 (08:28→17:19)
[2023-04-22] MEDS: INSULIN GLARGINE 100 UNIT/ML SQ SCH (08:28)
[2023-04-22] MEDS: NICOTINE 21 MG/PAT TD SCH (11:37)
--- NOTE | 2023-04-22 12:19 | P.PN ---
Subjective Date of Service: 04/22/23 Chief Complaint: Respiratory failure possible malfunction of home ventilator Patient's condition is stable still continues to remain very agitated requiring high doses of propofol stable Home ventilator malfunction Review of Systems is unable to be obtained Physical Examination - Vital Signs Temperature: 97.6 F Blood Pressure: 138/70 Pulse: 98 Respirations: 15 Pulse Ox (%): 97 - Physical Exam General: Alert, Delirious Respiratory: Diminished, Expiratory wheezes Cardiovascular: No edema, Regular rate/rhythm, Normal S1 S2 Assessment And Plan - Current Problems (Diagnosis) (1) Acute and chronic respiratory failure Current Visit: No Status: Acute Plan: Respiratory failure will change ventilator to pressure control awaiting home ventilator evaluation cultures are negative Qualifiers: Respiratory failure complication: hypoxia and hypercapnia Qualified Code(s): J96.21 - Acute and chronic respiratory failure with hypoxia; J96.22 - Acute and chronic respiratory failure with hypercapnia (2) Hyperglycemia Current Visit: Yes Status: Acute Plan: Patient's blood sugar seems to be better controlled Physician Review: Patient Assessed, Agree with Above Assessment and Plan
--- NOTE | 2023-04-22 16:44 | RAD REPORT ---
EXAM DESCRIPTION: RAD - Abdomen 1 View ([facility]) - 04/22/2023 1:18 pm CLINICAL HISTORY: confirm dobhoff placment COMPARISON: Abdomen 1 View (KUB) dated 12/24/2022; Chest Single View dated 04/19/2023; Thorax Wo Con da alden 04/19/2023 TECHNIQUE: Single AP view of the abdomen. FINDINGS: Weighted enteric tube tip projects along the gastric fundus. Left basilar atelectasis. Nonobstructive bowel gas pattern. No air-fluid levels, free air, or pneumatosis. No suspicious calcif ications. No significant bony abnormality. IMPRESSION: Weighted enteric tube tip projects along the gastric fundus.
[2023-04-22] MEDS: CEFEPIME 2 GM in NA CHLORIDE 0.9% 100 ML IV SCH (17:18)
[2023-04-22] MEDS: ONDANSETRON 4 MG/2 ML VIAL IV PRN (20:00)
[2023-04-22] MEDS: QUETIAPINE 25 MG TAB PO SCH (21:00)
[2023-04-23] MEDS: CEFEPIME 2 GM in NA CHLORIDE 0.9% 100 ML IV SCH ×3 (01:33→18:31)
[2023-04-23] MEDS: IPRATROPIUM BROM 0.5MG/2.5ML NEB SCH ×4 (02:00→20:40)
[2023-04-23] MEDS: ALBUTEROL 2.5 MG/3 ML NEB SOL NEB SCH ×4 (02:00→20:40)
[2023-04-23] MEDS: MIDAZOLAM HCL 2 MG/2 ML INJ IV PRN ×3 (04:07→20:10)
[2023-04-23] MEDS: propofoL 1,000 MG/100 ML VIAL IV SCH ×5 (04:08→21:58)
[2023-04-23 08:38] LABS: Absolute Lymphocytes (CBC) 0.7 K/uL (0.7-4.9); Hematocrit 29.3 % (36.0-45.0); MCV 75.9 fL (80-100); Platelets 290 thou/uL (152-406); RBC Red Blood Cell Count 3.86 M/uL (3.86-4.86)
[2023-04-23] MEDS ORDERED: IPRATROPIUM BROM 0.5MG/2.5ML NEB SCH (08:42)
--- NOTE | 2023-04-23 08:43 | P.PN ---
Subjective Date of Service: 04/23/23 Chief Complaint: Respiratory failure possible malfunction of home ventilator Patient is on high doses of propofol still continues to remain agitated Review of Systems is unable to be obtained Physical Examination - Vital Signs Temperature: 98.4 F Blood Pressure: 150/71 Pulse: 70 Respirations: 17 Pulse Ox (%): 93 - Physical Exam General: Unresponsive Respiratory: Clear to auscultation bilaterally, Diminished, Expiratory wheezes Gastrointestinal: Normal bowel sounds, Soft and benign Assessment And Plan - Current Problems (Diagnosis) (1) Acute and chronic respiratory failure Current Visit: No Status: Acute Plan: Patient continues to remain agitated and is on high doses of propofol we will military exchange wireless manager to patient's home ventilator to see if that is a problem start weaning her off the propofol no evidence of active sepsis gases satisfactory will recheck today changed to low-dose Solu-Medrol check sputum cultures gases ABG consider LTAC Qualifiers: Respiratory failure complication: hypoxia and hypercapnia Qualified Code(s): J96.21 - Acute and chronic respiratory failure with hypoxia; J96.22 - Acute and chronic respiratory failure with hypercapnia (2) Hyperglycemia Current Visit: Yes Status: Acute Plan: Patient's blood sugar seems to be better controlled Physician Review: Patient Assessed, Agree with Above Assessment and Plan
[2023-04-23 08:58] LABS: Albumin 3.3 g/dL (3.4-5.0); Bilirubin Total 0.5 mg/dL (0.2-1.0); Magnesium 2.3 mg/dL (1.6-2.4); Phosphorus 2.1 mg/dL (2.5-4.9); Potassium 2.9 mEq/L (3.5-5.1); Protein, Total 6.9 g/dL (6.4-8.2)
[2023-04-23] MEDS: NICOTINE 21 MG/PAT TD SCH (09:00)
[2023-04-23] MEDS: PARoxetine HCL 10 MG TAB PO SCH (09:00)
[2023-04-23] MEDS: INSULIN GLARGINE 100 UNIT/ML SQ SCH (09:30)
[2023-04-23] MEDS: INSULIN -REGULAR HUMAN 50 UNIT/0.5 ML ML SQ SCH ×4 (09:31→21:57)
[2023-04-23] MEDS: METHYLPREDNISOLONE 40 MG INJ IV SCH ×2 (09:31→21:58)
[2023-04-23] MEDS: INSULIN LISPRO 100 UNIT/1 ML SQ SCH ×3 (09:31→18:33)
[2023-04-23] MEDS: ENOXAPARIN 40 MG/0.4 ML SQ SCH (09:32)
[2023-04-23] MEDS: ROFLUMILAST 500 MCG TABLET PO SCH (09:32)
[2023-04-23] MEDS: acetaZOLAMIDE 250 MG TAB PO SCH (09:32)
[2023-04-23] MEDS: PANTOPRAZOLE 40MG TABLET PO SCH ×2 (09:33→18:32)
[2023-04-23] MEDS: SPIRONOLACTONE 25 MG TABLET PO SCH (09:33)
[2023-04-23] MEDS: ASPIRIN 81 MG CHEWABLE TABLET PO SCH (09:33)
--- NOTE | 2023-04-23 09:36 | RAD REPORT ---
EXAM DESCRIPTION: RAD - Chest Single View - 04/23/2023 9:15 am CLINICAL HISTORY: Respiratory failure COMPARISON: Abdomen 1 View (KUB) dated 04/22/2023; Chest Single View dated 04/19/2023; Chest Single Vi ew dated 01/01/2023; Chest Single View dated 12/28/2022; Thorax Wo Con dated 04/19/2023 FINDINGS: Lines: Tracheostomy. Lungs: Hazy opacities, left greater than right. There are also some mild basilar airspace opacities. Calcified left upper lobe nodule. Pleural: No significant pleural effusions or pneumothorax. Cardiac: Stable size and configuration Mediastinum: Within normal limits. Bones: No acute fractures. Other: Feeding tube overlying the proximal stomach. IMPRESSION: No significant change in aeration of the lungs compared with 04/19/2023. There is likely still some residual atelectasis at the right lung base. Increased relative opacification of the left hemithorax compared with the right may be due to patient rotation.
[2023-04-23] MEDS: KCL 20 MEQ/100 mL IVPB 20 MEQ/100 ML BAG IV SCH ×2 (11:25→13:19)
[2023-04-23] MEDS: QUETIAPINE 25 MG TAB PO SCH (21:58)
[2023-04-23] MEDS: ONDANSETRON 4 MG/2 ML VIAL IV PRN (22:12)
[2023-04-24] MEDS: CEFEPIME 2 GM in NA CHLORIDE 0.9% 100 ML IV SCH ×3 (01:06→17:43)
[2023-04-24] MEDS: MIDAZOLAM HCL 2 MG/2 ML INJ IV PRN (01:06)
[2023-04-24] MEDS: ALBUTEROL 2.5 MG/3 ML NEB SOL NEB SCH ×4 (02:00→19:50)
[2023-04-24] MEDS: IPRATROPIUM BROM 0.5MG/2.5ML NEB SCH ×4 (02:00→19:50)
[2023-04-24] MEDS: propofoL 1,000 MG/100 ML VIAL IV SCH ×3 (02:09→10:03)
[2023-04-24 05:34] LABS: Absolute Lymphocytes (CBC) 0.4 K/uL (0.7-4.9); Hematocrit 30.7 % (36.0-45.0); Lymphocytes % 3.8 % (15.3-44.8); MPV 7.3 fL (7.6-11.3); Platelets 249 thou/uL (152-406); RBC Red Blood Cell Count 4.04 M/uL (3.86-4.86)
[2023-04-24 05:48] LABS: Magnesium 2.4 mg/dL (1.6-2.4); Phosphorus 1.8 mg/dL (2.5-4.9); Potassium 3.4 mEq/L (3.5-5.1)
[2023-04-24] MEDS ORDERED: POTASSIUM 25 MEQ EFFERV TAB PO ONE (06:12)
[2023-04-24] MEDS: POTASS/SODIUM PHOSPHATE 1 PKT POWD.PACK PO SCH ×3 (06:26→09:59)
[2023-04-24 06:46] LABS: Arterial Blood Carboxyhemoglob 1.3 % (0-1.5); Blood Gas Oxyhemoglobin 94.4 % (94-97); Blood O2 Saturation 96.8 % (92-98.5)
--- NOTE | 2023-04-24 08:03 | RAD REPORT ---
EXAM DESCRIPTION: [place] Single View04/24/2023 6:44 am CLINICAL HISTORY: Respiratory failure COMPARISON: April 23, 2023 FINDINGS: Right middle lobe atelectasis unchanged The flow appears clear of acute infiltrate. Heart is normal size. Tracheostomy tube in good position IMPRESSION: No change since the prior exam
[2023-04-24 08:31] LABS: Blood Morphology Comment NOT SEEN (NOT SEEN); Platelet Estimate ADEQ; White Blood Cell Scan OK (OK)
[2023-04-24] MEDS: NICOTINE 21 MG/PAT TD SCH (09:58)
[2023-04-24] MEDS: ENOXAPARIN 40 MG/0.4 ML SQ SCH (09:59)
[2023-04-24] MEDS: METHYLPREDNISOLONE 40 MG INJ IV SCH ×2 (09:59→21:04)
[2023-04-24] MEDS: PARoxetine HCL 10 MG TAB PO SCH (09:59)
[2023-04-24] MEDS: acetaZOLAMIDE 250 MG TAB PO SCH (09:59)
[2023-04-24] MEDS: SPIRONOLACTONE 25 MG TABLET PO SCH (09:59)
[2023-04-24] MEDS: ROFLUMILAST 500 MCG TABLET PO SCH (10:00)
[2023-04-24] MEDS: ASPIRIN 81 MG CHEWABLE TABLET PO SCH (10:00)
[2023-04-24] MEDS: PANTOPRAZOLE 40MG TABLET PO SCH ×2 (10:00→16:30)
[2023-04-24] MEDS: INSULIN GLARGINE 100 UNIT/ML SQ SCH (10:01)
[2023-04-24] MEDS: INSULIN -REGULAR HUMAN 50 UNIT/0.5 ML ML SQ SCH ×4 (10:02→21:00)
[2023-04-24] MEDS: INSULIN LISPRO 100 UNIT/1 ML SQ SCH ×3 (10:02→17:44)
--- NOTE | 2023-04-24 10:34 | P.PN ---
Subjective Date of Service: 04/24/23 Chief Complaint: Respiratory failure possible malfunction of home ventilator Patient is still on high doses of propofol otherwise no change currently unresponsive examination and ventilation satisfactory Review of Systems is unable to be obtained Physical Examination - Vital Signs Temperature: 99.6 F Blood Pressure: 152/71 Pulse: 84 Respirations: 17 Pulse Ox (%): 95 - Physical Exam General: Unresponsive Respiratory: Clear to auscultation bilaterally, Expiratory wheezes Gastrointestinal: Normal bowel sounds, Soft and benign Assessment And Plan - Current Problems (Diagnosis) (1) Acute and chronic respiratory failure Current Visit: No Status: Acute Plan: Patient has acute on chronic respiratory failure oxygenation satisfactory ventilation is also satisfactory we will plan to decrease the pressure control down to 20 titrate the FiO2 down to a sat of 90% serum cultures ordered again no evidence of any sepsis patient has a Optin[employer] to evaluate her home ventilator apparently she did not tolerate her home vent Qualifiers: Respiratory failure complication: hypoxia and hypercapnia Qualified Code(s): J96.21 - Acute and chronic respiratory failure with hypoxia; J96.22 - Acute and chronic respiratory failure with hypercapnia (2) Hyperglycemia Current Visit: Yes Status: Acute Plan: P blood sugars are still elevated Physician Review: Patient Assessed, Agree with Above Assessment and Plan
[2023-04-24] MEDS: LORazepam 2 MG/ML VIAL IV PRN ×2 (15:57→21:04)
[2023-04-24] MEDS: VITAL HP 1,000 ML BOT RTH SCH (17:44)
[2023-04-24] MEDS: QUETIAPINE 25 MG TAB PO SCH ×2 (21:00→21:04)
[2023-04-24] MEDS: ONDANSETRON 4 MG/2 ML VIAL IV PRN (21:04)
[2023-04-24] MEDS: FENTANYL CITR 100 MCG/2 ML IV PRN (23:13)
[2023-04-25] MEDS: ALBUTEROL 2.5 MG/3 ML NEB SOL NEB SCH ×4 (01:00→20:00)
[2023-04-25] MEDS: IPRATROPIUM BROM 0.5MG/2.5ML NEB SCH ×4 (01:00→20:00)
[2023-04-25] MEDS: CEFEPIME 2 GM in NA CHLORIDE 0.9% 100 ML IV SCH ×2 (01:16→09:31)
[2023-04-25 06:00] LABS: Magnesium 2.5 mg/dL (1.6-2.4); Phosphorus 2.3 mg/dL (2.5-4.9); Potassium 3.7 mEq/L (3.5-5.1)
[2023-04-25 07:11] LABS: Arterial Blood Carboxyhemoglob 1.3 % (0-1.5); Blood Gas Oxyhemoglobin 95.5 % (94-97); Blood O2 Saturation 97.7 % (92-98.5)
[2023-04-25] MEDS: INSULIN -REGULAR HUMAN 50 UNIT/0.5 ML ML SQ SCH ×4 (07:30→20:46)
[2023-04-25] MEDS: INSULIN LISPRO 100 UNIT/1 ML SQ SCH ×3 (07:52→17:54)
--- NOTE | 2023-04-25 07:57 | RAD REPORT ---
EXAM DESCRIPTION: RADChest Single View04/25/2023 6:29 am CLINICAL HISTORY: Respiratory failure COMPARISON: Chest Single View dated 04/24/2023; Chest Single View dated 04/23/2023; Abdomen 1 View ([facility] B) dated 04/22/2023; Chest Single View dated 04/19/2023; Thorax Wo Con dated 04/19/2023 TECHNIQUE: Portable AP view of the chest. FINDINGS: Tracheostomy tube in place. The lungs are clear apart from stable mild bibasilar atelectat ic changes. Calcified peripheral left upper lobe 2 cm granuloma is stable. No pneumothorax or effusi on. The cardiomediastinal contours are unremarkable. IMPRESSION: No acute cardiopulmonary process.
[2023-04-25] MEDS: NICOTINE 21 MG/PAT TD SCH (09:00)
[2023-04-25] MEDS: INSULIN GLARGINE 100 UNIT/ML SQ SCH (09:00)
[2023-04-25] MEDS: METHYLPREDNISOLONE 40 MG INJ IV SCH ×2 (09:31→19:57)
[2023-04-25] MEDS: ENOXAPARIN 40 MG/0.4 ML SQ SCH (09:31)
[2023-04-25] MEDS: PARoxetine HCL 10 MG TAB PO SCH (09:39)
[2023-04-25] MEDS: PANTOPRAZOLE 40MG TABLET PO SCH ×2 (09:39→16:30)
[2023-04-25] MEDS: SPIRONOLACTONE 25 MG TABLET PO SCH (09:40)
--- NOTE | 2023-04-25 09:40 | P.PN ---
Subjective Date of Service: 04/25/23 Chief Complaint: Respiratory failure possible malfunction of home ventilator Patient pulled out her NG tube yesterday is refusing to take her medications oxygenation and ventilation is satisfactory still awaiting replacement of the home ventilator Review of Systems is unable to be obtained Physical Examination - Vital Signs Temperature: 98.2 F Blood Pressure: 147/89 Pulse: 102 Respirations: 18 Pulse Ox (%): 100 - Physical Exam General: Unresponsive Respiratory: Clear to auscultation bilaterally, Diminished, Expiratory wheezes Cardiovascular: Regular rate/rhythm, Normal S1 S2, Edema - Studies Microbiology Data (last 24 hrs): 04/19/23 13:54 Blood - Blood Aerobic Blood Culture - Final No growth in 5 days. 04/19/23 13:54 Blood - Blood Anaerobic Blood Culture - Final No growth in 5 days. 04/19/23 13:36 Blood - Blood Aerobic Blood Culture - Final No growth in 5 days. 04/19/23 13:36 Blood - Blood Anaerobic Blood Culture - Final No growth in 5 days. Assessment And Plan - Current Problems (Diagnosis) (1) Acute and chronic respiratory failure Current Visit: No Status: Acute Plan: Respiratory failure oxygenation and ventilation is satisfactory when insist to keep her rate at 20 even though she is mildly hypercapnic oxygenation satisfactory only on 30% FiO2 awaiting change of ventilator sputum cultures are pending DC cefepime no evidence of sepsis we will try patient on her home ventilator once has been replaced Qualifiers: Respiratory failure complication: hypoxia and hypercapnia Qualified Code(s): J96.21 - Acute and chronic respiratory failure with hypoxia; J96.22 - Acute and chronic respiratory failure with hypercapnia (2) Hyperglycemia Current Visit: Yes Status: Acute Plan: Blood sugars are better controlled Physician Review: Patient Assessed, Agree with Above Assessment and Plan
[2023-04-25] MEDS: ROFLUMILAST 500 MCG TABLET PO SCH (09:41)
[2023-04-25] MEDS: acetaZOLAMIDE 250 MG TAB PO SCH (09:42)
[2023-04-25 18:40] LABS: Arterial Blood Carboxyhemoglob 1.3 % (0-1.5); Blood Gas Oxyhemoglobin 96.5 % (94-97); Blood O2 Saturation 98.9 % (92-98.5)
[2023-04-25] MEDS: propofoL 1,000 MG/100 ML VIAL IV SCH (19:57)
[2023-04-25] MEDS: QUETIAPINE 25 MG TAB PO SCH (20:46)
[2023-04-26] MEDS: propofoL 1,000 MG/100 ML VIAL IV SCH ×5 (00:40→23:09)
[2023-04-26] MEDS: ALBUTEROL 2.5 MG/3 ML NEB SOL NEB SCH ×4 (01:49→20:00)
[2023-04-26] MEDS: IPRATROPIUM BROM 0.5MG/2.5ML NEB SCH ×4 (01:49→20:00)
[2023-04-26] MEDS: MIDAZOLAM HCL 2 MG/2 ML INJ IV PRN (02:41)
[2023-04-26 05:06] LABS: Hematocrit 31.7 % (36.0-45.0); MCV 76.9 fL (80-100); MPV 7.3 fL (7.6-11.3); Platelets 269 thou/uL (152-406); RBC Red Blood Cell Count 4.12 M/uL (3.86-4.86)
[2023-04-26 05:19] LABS: Magnesium 2.6 mg/dL (1.6-2.4); Phosphorus 3.4 mg/dL (2.5-4.9); Potassium 3.4 mEq/L (3.5-5.1)
[2023-04-26] MEDS: INSULIN -REGULAR HUMAN 50 UNIT/0.5 ML ML SQ SCH ×4 (07:30→20:37)
[2023-04-26] MEDS: INSULIN LISPRO 100 UNIT/1 ML SQ SCH ×3 (08:00→16:59)
--- NOTE | 2023-04-26 08:02 | P.PN ---
Subjective Date of Service: 04/26/23 Chief Complaint: Respiratory failure possible malfunction of home ventilator Patient is ventilator was changed to hospital ventilator again she did not tolerate her home ventilator remains agitated requiring high doses of Levophed patient pulled out her nasogastric tube last night Review of Systems is unable to be obtained Physical Examination - Vital Signs Temperature: 97.4 F Blood Pressure: 120/63 Pulse: 74 Respirations: 17 Pulse Ox (%): 95 - Physical Exam General: Unresponsive Respiratory: Clear to auscultation bilaterally, Diminished Cardiovascular: No edema, Regular rate/rhythm, Normal S1 S2 Assessment And Plan - Current Problems (Diagnosis) (1) Acute and chronic respiratory failure Current Visit: No Status: Acute Plan: Discussed with the rep her vent settings have been changed to pressure control which is which patient is more comfortable with now on a pressure control of 25 she was given some IV Lasix she is still a little tachypneic blood gases oxygenation ventilation satisfactory went at the bedside is anxious patient's blood pressure is also elevated Qualifiers: Respiratory failure complication: hypoxia and hypercapnia Qualified Code(s): J96.21 - Acute and chronic respiratory failure with hypoxia; J96.22 - Acute and chronic respiratory failure with hypercapnia (2) Hyperglycemia Current Visit: Yes Status: Acute Plan: Blood sugars are better controlled no change Physician Review: Patient Assessed, Agree with Above Assessment and Plan
[2023-04-26] MEDS: NICOTINE 21 MG/PAT TD SCH (09:00)
[2023-04-26] MEDS: INSULIN GLARGINE 100 UNIT/ML SQ SCH (09:00)
--- NOTE | 2023-04-26 09:30 | RAD REPORT ---
EXAM DESCRIPTION: RAD - Abdomen 1 View (KUB) - 04/26/2023 9:08 am CLINICAL HISTORY: Device placement nasogastric tube placement FINDINGS: A nasogastric tube appears to ascend within the mid to upper chest. Tip probably lies in the region of the posterior mouth.
[2023-04-26] MEDS: METHYLPREDNISOLONE 40 MG INJ IV SCH ×2 (10:52→20:38)
[2023-04-26] MEDS: PARoxetine HCL 10 MG TAB PO SCH (10:52)
[2023-04-26] MEDS: PANTOPRAZOLE 40MG TABLET PO SCH ×2 (10:53→16:30)
[2023-04-26] MEDS: SPIRONOLACTONE 25 MG TABLET PO SCH (10:53)
[2023-04-26] MEDS: ASPIRIN 81 MG CHEWABLE TABLET PO SCH (10:53)
[2023-04-26] MEDS: acetaZOLAMIDE 250 MG TAB PO SCH (10:53)
[2023-04-26] MEDS: ENOXAPARIN 40 MG/0.4 ML SQ SCH (10:54)
[2023-04-26 12:58] LABS: Arterial Blood Carboxyhemoglob 1.3 % (0-1.5); Blood O2 Saturation 96.5 % (92-98.5)
[2023-04-26] MEDS: FUROSEMIDE 40 MG/4 ML VIAL IV SCH (13:24)
--- NOTE | 2023-04-26 15:38 | RAD REPORT ---
EXAM DESCRIPTION: RAD - Abdomen 1 View (KUB) - 04/26/2023 2:46 pm CLINICAL HISTORY: confirm dobhoff placement COMPARISON: Abdomen 1 View (KUB) dated 04/26/2023; Abdomen 1 View (KUB) dated 04/22/2023; Abdomen 1 Vi ew (KUB) dated 12/24/2022 TECHNIQUE: Single AP view of the abdomen. FINDINGS: Weighted enteric tube tip curls along the stomach and proximal duodenum, and probably term inates along the distal third part of the duodenum. Nonobstructive bowel gas pattern. No air-fluid levels, free air, or pneumatosis. No suspicious calcif ications. No significant bony abnormality. IMPRESSION: Satisfactory positioning of the weighted enteric tube as above.
[2023-04-26] MEDS: FENTANYL CITR 100 MCG/2 ML IV PRN ×2 (16:51→20:37)
[2023-04-26] MEDS: VITAL HP 1,000 ML BOT RTH SCH (17:26)
--- NOTE | 2023-04-26 18:22 | RAD REPORT ---
EXAM DESCRIPTION: RADChest Single View04/26/2023 2:48 pm CLINICAL HISTORY: CHF , COPD, FLUID OVERLOAD COMPARISON: Abdomen 1 View (KUB) dated 04/26/2023; Abdomen 1 View (KUB) dated 04/26/2023; Chest Single View dated 04/25/2023; Chest Single View dated 04/24/2023 TECHNIQUE: Portable AP view of the chest. FINDINGS: Tracheostomy tube and enteric tube in place. Hazy left basilar airspace opacities may be s lightly more progressive compared to the prior exam, could reflect atelectasis. Background interstiti al thickening is stable. Left peripheral mid lung calcified granuloma is stable. No pneumothorax or s izable effusion. The cardiomediastinal contours are unremarkable. IMPRESSION: Slightly progressive hazy opacification at the left base, could reflect atelectasis or e liz airspace disease. Other stable findings as above. .
[2023-04-26] MEDS: ONDANSETRON 4 MG/2 ML VIAL IV PRN (19:17)
[2023-04-26] MEDS: QUETIAPINE 25 MG TAB PO SCH (20:38)
[2023-04-27] MEDS: IPRATROPIUM BROM 0.5MG/2.5ML NEB SCH ×2 (00:45→07:55)
[2023-04-27] MEDS: ALBUTEROL 2.5 MG/3 ML NEB SOL NEB SCH ×2 (00:45→07:55)
[2023-04-27 04:51] LABS: Absolute Lymphocytes (CBC) 0.4 K/uL (0.7-4.9); Hematocrit 33.5 % (36.0-45.0); Lymphocytes % 2.7 % (15.3-44.8); MCV 77.1 fL (80-100); MPV 7.3 fL (7.6-11.3); Platelets 287 thou/uL (152-406); RBC Red Blood Cell Count 4.35 M/uL (3.86-4.86)
[2023-04-27 05:03] LABS: Magnesium 2.9 mg/dL (1.6-2.4); Phosphorus 4.3 mg/dL (2.5-4.9); Potassium 3.8 mEq/L (3.5-5.1)
[2023-04-27 06:34] VITALS: BMI 32.6
[2023-04-27] MEDS: NICOTINE 21 MG/PAT TD SCH (09:00)
[2023-04-27] MEDS ORDERED: POTASSIUM 25 MEQ EFFERV TAB PO ONE (09:00)
[2023-04-27] MEDS: INSULIN GLARGINE 100 UNIT/ML SQ SCH (09:13)
[2023-04-27] MEDS: INSULIN -REGULAR HUMAN 50 UNIT/0.5 ML ML SQ SCH (09:14)
[2023-04-27] MEDS: INSULIN LISPRO 100 UNIT/1 ML SQ SCH (09:14)
[2023-04-27] MEDS: METHYLPREDNISOLONE 40 MG INJ IV SCH (09:14)
[2023-04-27] MEDS: ENOXAPARIN 40 MG/0.4 ML SQ SCH (09:15)
[2023-04-27] MEDS: PANTOPRAZOLE 40MG TABLET PO SCH (09:15)
[2023-04-27] MEDS: acetaZOLAMIDE 250 MG TAB PO SCH (09:15)
[2023-04-27] MEDS: FUROSEMIDE 40 MG/4 ML VIAL IV SCH (09:15)
[2023-04-27] MEDS: SPIRONOLACTONE 25 MG TABLET PO SCH (09:15)
[2023-04-27] MEDS: ASPIRIN 81 MG CHEWABLE TABLET PO SCH (09:15)
[2023-04-27] MEDS: PARoxetine HCL 10 MG TAB PO SCH (09:15)
[2023-04-27] MEDS: ONDANSETRON 4 MG/2 ML VIAL IV PRN (09:18)
[2023-04-27 09:33] VITALS: TEMP 102
[2023-04-27 11:37] VITALS: BP 137/92
--- NOTE | 2023-04-27 11:40 | P.DS ---
Admission Date: 04/19/23 Discharge Date: 04/27/23 Disposition: ROUTINE DISCHARGE Discharge Condition: GOOD Reason for Admission: Respiratory failure possible malfunction of home ventilator - Problems (1) Acute and chronic respiratory failure Current Visit: No Status: Acute Qualifiers: Respiratory failure complication: hypoxia and hypercapnia Qualified Code(s): J96.21 - Acute and chronic respiratory failure with hypoxia; J96.22 - Acute and chronic respiratory failure with hypercapnia (2) Hyperglycemia Current Visit: Yes Status: Acute Brief History of Present Illness: Patient is 62 years of age with a history of severe COPD status post tracheostomy current exacerbations into the hospital complaining of worsening dyspnea for the past 3 days and there is a tear in her ventilator tubing he has to be a little tachypneic Hospital Course: Patient is 62 years of age admitted with COPD exacerbation has had terminal COPD on home ventilator and a PEG tube some malfunction with her home ventilator that was changed and replaced but she still continues to have a problem that the settings were changed to pressure control patient tolerated very well she had to be sedated due to agitation and also required an NG tube due to high doses of propofol her problem resolved blood gases satisfactory oxygenation stable she is no longer hypercapnic continue with her present medication patient discharged in stable condition to home there was no evidence of infection at time of discharge alert responsive cooperative less anxious chest diminished air entry cardiovascular system heart sounds normal Vital Signs/Physical Exam: Temp Pulse Resp BP Pulse Ox 102 F H 102 H 19 137/92 H 100 04/27/23 08:00 04/27/23 11:00 04/27/23 11:00 04/27/23 11:00 04/27/23 11:00 Laboratory Data at Discharge: WBC 14.80 thou/uL (4.3-10.9) H 04/27/23 04:22 Hgb 10.8 g/dL (12.0-15.0) L 04/27/23 04:22 Hct 33.5 % (36.0-45.0) L 04/27/23 04:22 Plt Count 287 thou/uL (152-406) 04/27/23 04:22 PT 10.5 SECONDS (9.5-12.5) 04/19/23 13:36 INR 0.95 04/19/23 13:36 APTT 36.2 SECONDS (24.3-36.9) 04/19/23 13:36 Sodium 137 mEq/L (136-145) 04/27/23 04:22 Potassium 3.8 mEq/L (3.5-5.1) 04/27/23 04:22 BUN 32 mg/dL (7-18) H 04/27/23 04:22 Creatinine 0.87 mg/dL (0.55-1.02) 04/27/23 04:22 Glucose 181 mg/dL (74-106) H 04/27/23 04:22 Phosphorus 4.3 mg/dL (2.5-4.9) 04/27/23 04:22 Magnesium 2.9 mg/dL (1.6-2.4) H 04/27/23 04:22 Total Bilirubin 0.5 mg/dL (0.2-1.0) 04/23/23 08:16 AST 32 U/L (15-37) 04/23/23 08:16 ALT 24 U/L (13-56) 04/23/23 08:16 Alkaline Phosphatase 101 U/L (45-117) 04/23/23 08:16 Home Medications: Cyclobenzaprine [Flexeril*] 10 mg PO TID 05/01/21 Hydrocodone Bit/Acetaminophen [Hydrocodon-Acetaminophn 10-325] 1 tab PO Q6H PRN 05/01/21 Ipratropium/Albuterol Sulfate [Iprat-Albut 0.5-3(2.5) mg/3 ml] 3 ml NEB QID 05/01/21 Levothyroxine [Synthroid*] 0.05 mg PO DAILY 05/01/21 Metformin HCl 500 mg PO DAILY 05/01/21 PARoxetine HCL [Paroxetine HCl] 40 mg PO DAILY 05/01/21 Pregabalin 300 mg PO BID 05/01/21 Quetiapine [Seroquel*] 50 mg PO BEDTIME 05/01/21 Spironolactone 25 mg PO DAILY 05/01/21 Montelukast Sodium 10 mg PO DAILY 10/20/22 Rosuvastatin [Crestor*] 10 mg PO BEDTIME 10/20/22 Insulin Detemir [Levemir] 60 units SQ DAILY 12/24/22 Ondansetron [Ondansetron Odt] 8 mg PO Q8H PRN 12/24/22 Albuterol Neb [Proventil 0.083% Neb Soln] 2.5 mg NEB [id number] PRN #120 amp 12/28/22 Ipratropium Neb [Atrovent*] 0.5 mg NEB [id number] #120 amp 12/28/22 Roflumilast [Daliresp*] 500 mcg PO DAILY 12/28/22 acetaZOLAMIDE [Diamox*] 250 mg PO DAILY #30 tab 12/28/22 Fluticasone/Umeclidin/Vilanter [Trelegy Ellipta 200-62.5-25] 1 each IH BID 30 Days #1 inh 01/03/23 Furosemide 20 mg PO DAILYPRN PRN 04/20/23 Hydroxyzine HCl [Atarax] 10 mg PO TIDP PRN 04/20/23 Iron/FA/Vit B-Com W/C [Hemocyte Plus*] 1 tab PO BEDTIME 04/20/23 Sennosides/Docusate Sodium [Senna Plus 8.6-50 mg Tablet] 1 tab PO BEDTIME 04/20/23 predniSONE [Deltasone*] 10 mg PO DAILY 30 Days #30 tab 04/27/23 New Medications: predniSONE [Deltasone*] 10 mg PO DAILY 30 Days #30 tab Followup: William Powell FNP [Primary Care Provider] -
[2023-04-27 15:10] VITALS: O2SAT 97
--- NOTE | 2023-05-04 13:00 | P.PN ---
Date of Service: 05/04/23 I called the sputum culture shows Proteus and Pseudomonas oriented to the she is not having any fever chills she is not coughing any purulent sputum and was adjusted she is doing better called in some levofloxacin and is only on low-dose Seroquel from the the culture positive results
== END 2023-04-27 11:30 | disposition home or self-care (01) | DRG 207 ==
LOC: ER 12:36 → ERHOLD 17:25 → 4TH 20:37 → 3RD-ICU 21:02
PROVIDERS: ADMIT Internal Medicine; ATTEND Internal Medicine Sleep Medicine
PROC: 5A1955Z Respiratory Ventilation, Greater than 96 Consecutive Hours (ICD-10-PCS; principal; 2023-04-19)
DX: J95.859 Other complication of respirator [ventilator] (principal); J96.21 Acute and chronic respiratory failure with hypoxia; J15.1 Pneumonia due to Pseudomonas; J96.22 Acute and chronic respiratory failure with hypercapnia; Z16.12 Extended spectrum beta lactamase (ESBL) resistance; J44.1 Chronic obstructive pulmonary disease with (acute) exacerbation; J44.0 Chronic obstructive pulmonary disease with (acute) lower respiratory infection; Z99.11 Dependence on respirator [ventilator] status; I50.32 Chronic diastolic (congestive) heart failure; E78.5 Hyperlipidemia, unspecified; E87.5 Hyperkalemia; E03.9 Hypothyroidism, unspecified; E11.65 Type 2 diabetes mellitus with hyperglycemia; Z79.4 Long term (current) use of insulin; Z78.1 Physical restraint status; Z93.0 Tracheostomy status; Z88.5 Allergy status to narcotic agent; Z88.2 Allergy status to sulfonamides; Z88.8 Allergy status to other drugs, medicaments and biological substances; Z79.52 Long term (current) use of systemic steroids; Z90.710 Acquired absence of both cervix and uterus; Z79.890 Hormone replacement therapy; Z79.899 Other long term (current) drug therapy; Z87.891 Personal history of nicotine dependence; Z20.822 Contact with and (suspected) exposure to COVID-19
CPT/HCPCS: 36415; 36600; 71045; 71250; 74018; 80048; 80053; 81001; 82805; 82947; 83605; 83735; 84100; 84132; 85025; 85027; 85610; 85730; 87040; 87070; 87077; 87186; 87205; 87635; 87804; 93005; 94002; 94003; 94640; 94668; 99285; J0692; J0696; J1650; J1815; J1940; J2250; J2405; J2704; J2920; J2930; J3010; J3480; J7050; J7512; J7613; J7614; J7644